=== PATIENT | male | born 1955 | race Caucasian/White ===

== ENCOUNTER 2019-03-22 15:45 | Outpatient (RCR) | payer BC, SELFPAY ==
[2019-03-17 09:21] VITALS: BP 143/87; PULSE 69; RESP 16; TEMP 35.7; BMI 96.0
--- NOTE | 2019-03-17 09:34 | WC ---
PT HAD RECENT DOPPLER AND VASCULAR STUDIES AT [facility] IN [place].
--- NOTE | 2019-03-17 10:55 | HP.PCM_ITS ---
(1) Peripheral vascular disease of lower extremity with ulceration Status: Acute Current Visit: Yes Code(s): I73.9 - Peripheral vascular disease, unspecified; L97.909 - Non-pressure chronic ulcer of unspecified part of unspecified lower leg with unspecified severity (2) Benign essential HTN Status: Chronic Current Visit: Yes Code(s): I10 - Essential (primary) hypertension (3) DM2 (diabetes mellitus, type 2) Status: Chronic Current Visit: Yes Qualifiers: Diabetes mellitus complication status: with circulatory complication Code(s): E11.9 - Type 2 diabetes mellitus without complications (4) Morbid obesity Status: Chronic Current Visit: Yes Code(s): E66.01 - Morbid (severe) obesity due to excess calories (5) Sleep apnea Status: Chronic Current Visit: Yes Code(s): G47.30 - Sleep apnea, unspecified (6) Superficial thrombosis of left lower extremity Status: Acute Current Visit: Yes Code(s): I82.812 - Embolism and thrombosis of superficial veins of left lower extremity History of Present Illness Date of Service: 03/17/19 Chief Complaint: Follow-up on a left medial ankle open ulcer History of Wound: 63-year-old obese diabetic white male with a history of peripheral vascular disease has stasis dermatitis of the left leg and swelling noticed about 3 weeks ago and opening on his left medial ankle. Was seen by his primary care doctor and sports medicine doctor and he ordered ultrasound of his left leg and studies of his left leg which show superficial thrombosis is in the popliteal and gastrocnemius area plus a lot of blocked connectors. Leg is definitely swollen patient has tried to wear stockings before but says they never work out very hesitant to use a compression stocking. Right leg is normal size with good shape no sign of any peripheral vascular disease. Patient's diabetes well controlled around 7 he takes metformin and Ozempic and Levemir for control. 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 The area itself looks cobblestone and typical peripheral vascular disease type ulcer, barely opened very painful had some dried slough over top of the skin. Past Medical History Past Medical History: Chronic Problems Sleep apnea (Chronic) Morbid obesity (Chronic) DM2 (diabetes mellitus, type 2) (Chronic) Benign essential HTN (Chronic) Past Medical History: Peripheral vascular disease with open ulcer. Thrombosis is and blocked veins in the left leg superficial Allergies/Adverse Reactions: Allergies ibuprofen [From Nuprin] Allergy (Verified 03/17/19 09:39) Unknown Home Medications: Ambulatory Orders Medication Instructions Recorded Ascorbic Acid [Vitamin C] 250 mg PO DAILY 03/17/19 Aspirin [Aspirin EC] 81 mg PO DAILY 03/17/19 Carvedilol [Coreg] 25 mg PO BID 03/17/19 Doxycycline 100 mg PO BID 03/17/19 Insulin Detemir [Levemir] 75 unit SQ DAILY 03/17/19 Metformin HCl 500 mg PO BID 03/17/19 Olme/Amlo/Hctz 1 tab PO DAILY 03/17/19 Semaglutide [Ozempic] 1 mg SQ QWEEK 03/17/19 hydrALAZINE [Apresoline] 50 mg PO BID 03/17/19 Lives: Spouse/ Significant Other Smoking Status: Former smoker Review of Systems Constitutional: Denies: Chills, Fever Eyes: Denies: Blurred vision, Drainage, Pain HEENT: Denies: Difficulty Hearing, Difficulty Swallowing, Sore Throat, Visual Changes Cardiovascular: Denies: Chest Pain, Palpitations, Syncope Respiratory: Denies: Cough, Shortness of Breath Gastrointestinal: Denies: Abdominal Pain, Nausea, Vomiting Genitourinary: Denies: Dysuria, Frequency Musculoskeletal: Denies: Joint Pain, Muscle pain Skin: Reports: -. Denies: Jaundice, Rash Neurological: Denies: Balance problems, Change in Speech, Difficulty swallowing, Focal weakness Psychiatric: Denies: Anxiety, Depression Endocrine: Denies: Change in Body Habitus Hematologic/ Lymphatic: Denies: Adenopathy - Physical Exam Vital Signs Temp Pulse Resp BP 96.2 F L 69 16 143/87 H 03/17/19 09:21 03/17/19 09:21 03/17/19 09:21 03/17/19 09:21 General: Oriented x3, Cooperative, Well developed HEENT: Atraumatic, PERRLA Oral: Moist Mucosa Neck: Supple, No JVD Lungs: Clear to auscultation, Normal air movement Cardiovascular: Regular rate, Regular Rhythm Abdomen: Bowel Sounds Present, Soft, Non Tender, No Hepato-splenomegaly Extremities: No clubbing, No edema Skin: Ulcer/ Wound - Left medial ankle Wound Measurements and Assessment WC - Nurse 1 - General Ulcer Measurement Start: 03/17/19 09:20 Freq: Status: Active Protocol: Activity Type Activity Date Activity User E-Sign Co-Sign Detail Recorded Client Recorded Date Recorded By Document 03/17/19 09:21 [facility] [id number] 03/17/19 09:34 [facility] 03/17/19 09:21 Wound Center Nurse 1 [Ulcer Assessment] #1- L MEDIAL ANKLE -Combined with other wound No -Current Size (cm) - Length 1.2 -Current Size (cm) - Width 1.3 -Current Size (cm) - Depth 0.1 -Total Square Cm 1.56 -Date of Last Picture (Recall this 03/17/19 field) -Photo Taken Yes -Epithelialization Large 67-100% -Tunneling No -Undermining/Tunneling No -Circular Undermining No -Exudate Amt None Present -Wound Margin Flat & Intact -Granulation Amt None Present (0 %) -Slough/Fibrin Yes -Necrosis Amt Large (67-100%) -Necrotic Tissue Type Adherent Slough -Texture (Mariza-wound Skin Appearance) Assessed, Scarring -Moisture (Mariza-wound Skin Appearance Assessed,Dry/ ) Scaly -Color (Mariza-wound Skin Appearance) Assessed, Hemosiderin Staining -Temperature (Mariza-wound Skin No Abnormality Appearance) (Pt Warm) -Tenderness on Palpation (Mariza-wound Yes Skin Appearance) -Ulcer Cleansing Rinsed/ Irrigated with Saline -Foul Odor after Cleansing No -Anesthetic Used 5% Lidocaine Gel [Edema Assessment] -Lower Limb Edema Present Yes -Right Calf (cm) 41.1 -Right Ankle (cm) 27.3 -Left Calf (cm) 45.6 -Left Ankle (cm) 30.8 - Nurse 2 - General Ulcer CM Notes Start: 03/17/19 09:20 Freq: Status: Active Protocol: Activity Type Activity Date Activity User E-Sign Co-Sign Detail Recorded Client Recorded Date Recorded By Document 03/17/19 10:29 MW [id number] 03/17/19 10:36 MW 03/17/19 10:29 Wound Center Nurse 2 [Procedure/Treatment] #1- L MEDIAL ANKLE -Time 10:29 -Correct Patient Yes -Correct Side, Site, Position Yes -Correct Procedure Yes -Procedure Performed Yes -Type of Procedure Debridement -Clinical Debridement Subcutaneous -Post Debridement Size (cm) - Length 1.7 -Post Debridement Size (cm) - Width 2.0 -Post Debridement Size (cm) - Depth 0.1 -Total Square Cm 3.40 -Wound/Ulcer Outcome Not Healed -Ulcer Cleansing Rinsed/ Irrigated with Saline -Foul Odor after Cleansing No -Bioengineered Tissue No -Bleeding Controlled with Pressure -Offloading No -Treatment Response Procedure Tolerated Well [See Physician Procedure note for Specifics] Pain Scale: 0-10 Numeric [Pain] -Is Patient Pain Free? Yes Musculoskeletal: No Tenderness to Palpation of Joints or Extremities Lymphatic: No Cervical, Supraclavicular, or Inguinal Adenopathy Neurological: Cranial nerves II-XII grossly intact, Neuro grossly intact Psych/Mental Status: Normal Affect, Appropriate Debridement Note Post-Debridement Measurements/Treatment WC - Nurse 2 - General Ulcer CM Notes Start: 03/17/19 09:20 Freq: Status: Active Protocol: Activity Type Activity Date Activity User E-Sign Co-Sign Detail Recorded Client Recorded Date Recorded By Document 03/17/19 10:29 MW [id number] 03/17/19 10:36 MW 03/17/19 10:29 Wound Center Nurse 2 #1- L MEDIAL ANKLE -Time 10:29 -Correct Patient Yes -Correct Side, Site, Position Yes -Correct Procedure Yes -Procedure Performed Yes -Type of Procedure Debridement -Clinical Debridement Subcutaneous -Post Debridement Size (cm) - Length 1.7 -Post Debridement Size (cm) - Width 2.0 -Post Debridement Size (cm) - Depth 0.1 -Total Square Cm 3.40 -Wound/Ulcer Outcome Not Healed -Ulcer Cleansing Rinsed/ Irrigated with Saline -Foul Odor after Cleansing No -Bioengineered Tissue No -Bleeding Controlled with Pressure -Offloading No -Treatment Response Procedure Tolerated Well Pain Scale: 0-10 Numeric Is Patient Pain Free? Yes Wound debrided: Left medial ankle ulcer Type of Debridement: Excisional debridement Anesthesia Used: 5% Lidocaine Gel Depth: Down to and including healthy tissue, in the subcutaneous layer Percentage of wound debrided: 100 Instrument Used: 7mm curette Tissue Removed: Slough Severity: Limited To Skin Breakdown Amount of bleeding with debridement: Mild Bleeding Controlled with: Compression and gauze Patient tolerated procedure well Assessment/Plan Active Problems Peripheral vascular disease of lower extremity with ulceration (Acute) Superficial thrombosis of left lower extremity (Acute) Sleep apnea (Chronic) Morbid obesity (Chronic) DM2 (diabetes mellitus, type 2) (Chronic) Benign essential HTN (Chronic) Assessment: Vascular disease with ulcer left medial ankle. Morbid obesity. Diabetes type 2 uncontrolled. Edema lower extremity left leg Plan: Wash left leg with antibacterial soap apply Aquacel silver to the wound area moistened cover with Adaptic gauze dressing and Subha applied Tubigrip single layer. Keep appointment with vascular surgery. Follow-up in 1 week with an afternoon DrMelida transfer out
[2019-03-22 15:20] VITALS: BP 154/89; PULSE 80; RESP 20; TEMP 35.7; BMI 96.0
--- NOTE | 2019-03-22 17:04 | PN.PCM_ITS ---
(1) Ulcer of left lower extremity with fat layer exposed Status: Resolved Current Visit: Yes Code(s): L97.922 - Non-pressure chronic ulcer of unspecified part of left lower leg with fat layer exposed (2) Localized edema Status: Chronic Current Visit: Yes Code(s): R60.0 - Localized edema (3) Venous insufficiency (chronic) (peripheral) Status: Chronic Current Visit: Yes Code(s): I87.2 - Venous insufficiency (chronic) (peripheral) Type of Wound Date of Service: 03/23/19 Chief Complaint: Follow-up on a left medial ankle open ulcer History of Wound: 63-year-old obese diabetic white male with a history of per ipheral vascular disease has stasis dermatitis of the left leg and swelling . Was seen by his primary care doctor and sports medicine doctor and he ordered ultrasound of his left leg and studies of his left leg which show superficial thrombosis is in the popliteal and gastrocnemius area plus a lot of blocked connectors. Leg is definitely swollen patient has tried to wear stockings before but says they never work out very hesitant to use a compression stocking. Right leg is normal size with good shape no sign of any peripheral vascular disease. Patient's diabetes well controlled around 7 he takes metformin and Ozempic and Levemir for control. 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 The area itself looks cobblestone and typical peripheral vascular disease type ulcer, barely opened very painful had some dried slough over top of the skin. He denies drainage and thinks the ulcer site is healed. Progress of Wound: Healed - Physical Exam Vital Signs Temp Pulse Resp BP 96.2 F L 80 20 H 154/89 H 03/22/19 15:20 03/22/19 15:20 03/22/19 15:20 03/22/19 15:20 General: Alert, Oriented x3, Cooperative, No apparent distress Extremities: No cyanosis, Capillary Refill Less than 3 Seconds, No Calf Tenderness - Negative Banda sign and compartments remain soft to palpate bilateral, Diminished Peripheral Pulses, Edema Skin: Ulcer/ Wound - Full epithelialization is noted and the ulcer site has healed. The adjacent skin remains atrophic. There is no bogginess or fluctuance on palpation. Wound Measurements and Assessment WC - Nurse 1 - General Ulcer Measurement Start: 03/17/19 09:20 Freq: Status: Active Protocol: Activity Type Activity Date Activity User E-Sign Co-Sign Detail Recorded Client Recorded Date Recorded By Document 03/22/19 15:[address] [facility] [id number] 03/22/19 15:[address] [facility] 03/22/19 15:20 Wound Center Nurse 1 [Ulcer Assessment] #1- L MEDIAL ANKLE -Combined with other wound No -Current Size (cm) - Length 0 -Current Size (cm) - Width 0 -Current Size (cm) - Depth 0 -Total Square Cm 0 -Date of Last Picture (Recall this 03/22/19 field) -Photo Taken Yes -Epithelialization Large 67-100% [Edema Assessment] -Lower Limb Edema Present Yes -Left Calf (cm) 46 -Left Ankle (cm) 30.2 - Nurse 2 - General Ulcer CM Notes Start: 03/17/19 09:20 Freq: Status: Active Protocol: Activity Type Activity Date Activity User E-Sign Co-Sign Detail Recorded Client Recorded Date Recorded By Document 03/22/19 16:30 [id number] 03/22/19 16:30 03/22/19 16:30 Wound Center Nurse 2 [Procedure/Treatment] #1- L MEDIAL ANKLE -Correct Patient No -Correct Side, Site, Position No -Correct Procedure No -Procedure Performed No -Post Debridement Size (cm) - Length 0 -Post Debridement Size (cm) - Width 0 -Post Debridement Size (cm) - Depth 0 -Total Square Cm 0 -Wound/Ulcer Outcome Healed- Epithelialized [See Physician Procedure note for Specifics] Pain Scale: 0-10 Numeric [Pain] -Is Patient Pain Free? Yes Musculoskeletal: No Tenderness to Palpation of Joints or Extremities, Muscle Wasting Psych/Mental Status: Normal Affect, Appropriate Debridement Note Post-Debridement Measurements/Treatment - Nurse 2 - General Ulcer CM Notes Start: 03/17/19 09:20 Freq: Status: Active Protocol: Activity Type Activity Date Activity User E-Sign Co-Sign Detail Recorded Client Recorded Date Recorded By Document 03/17/19 10:29 MW [id number] 03/17/19 10:36 MW Document 03/22/19 16:30 [id number] 03/22/19 16:30 03/17/19 03/22/19 10:29 16:30 Wound Center Nurse 2 #1- L MEDIAL ANKLE -Time 10:29 -Correct Patient Yes No -Correct Side, Site, Position Yes No -Correct Procedure Yes No -Procedure Performed Yes No -Type of Procedure Debridement -Clinical Debridement Subcutaneous -Post Debridement Size (cm) - Length 1.7 0 -Post Debridement Size (cm) - Width 2.0 0 -Post Debridement Size (cm) - Depth 0.1 0 -Total Square Cm 3.40 0 -Wound/Ulcer Outcome Not Healed Healed- Epithelialized -Ulcer Cleansing Rinsed/ Irrigated with Saline -Foul Odor after Cleansing No -Bioengineered Tissue No -Bleeding Controlled with Pressure -Offloading No -Treatment Response Procedure Tolerated Well Pain Scale: 0-10 Numeric Is Patient Pain Free? Yes Yes No debridement was completed today - healed Assessment/Plan Active Problems Peripheral vascular disease of lower extremity with ulceration (Acute) Superficial thrombosis of left lower extremity (Acute) Localized edema (Chronic) Venous insufficiency (chronic) (peripheral) (Chronic) Sleep apnea (Chronic) Morbid obesity (Chronic) DM2 (diabetes mellitus, type 2) (Chronic) Benign essential HTN (Chronic) Assessment: Vascular disease with ulcer left medial ankle - healed today. Morbid obesity. Diabetes type 2 uncontrolled. Edema lower extremity left leg Plan: I reviewed and discuss his case. It is noted the ulcer site has healed. I recommend monitors this closely for recurrence or signs of infection which neither is noted today. He understands the skin will take several months to remodel. To continue with light compression to control edema. To avoid idle standing or sitting. To elevate limbs while resting. To follow-up with vascular surgery as scheduled. He can discontinue dressing care and nutritional supplementation at this time. I answered his questions. He is discharged from the wound healing center at this time. To follow-up at the foot and ankle center as needed in the future for lower extremity needs.
== END 2019-04-10 23:59 ==
LOC: WC 15:45
PROVIDERS: Family Provider Family Medicine; PCP Family Medicine; Visit Provider Podiatrist
DX: E11.622 Type 2 diabetes mellitus with other skin ulcer (principal); E11.51 Type 2 diabetes mellitus with diabetic peripheral angiopathy without gangrene; G47.30 Sleep apnea, unspecified; E66.01 Morbid (severe) obesity due to excess calories; I10 Essential (primary) hypertension; Z87.891 Personal history of nicotine dependence; Z79.899 Other long term (current) drug therapy; Z79.4 Long term (current) use of insulin; Z79.82 Long term (current) use of aspirin; L97.321 Non-pressure chronic ulcer of left ankle limited to breakdown of skin; E11.65 Type 2 diabetes mellitus with hyperglycemia; R60.0 Localized edema
CPT/HCPCS: 11042; 99203; 99213; G0463

== ENCOUNTER 2023-10-28 13:12 | Observation (INO) | payer MEDICARE, SELFPAY ==
[2023-10-28] VITALS (12 sets, daily range): BP systolic 147–159; BP diastolic 70–78; PULSE 53–71; RESP 14–20; TEMP 36.5–37.1; O2SAT 96–100; BMI 47.7
--- NOTE | 2023-10-28 13:10 | EKG12_ITS ---
Test Reason : PREOP Blood Pressure : / mmHG Vent. Rate : 057 BPM Atrial Rate : 057 BPM P-R Int : 228 ms QRS Dur : 132 ms QT Int : 492 ms P-R-T Axes : 083 062 014 degrees QTc Int : 478 ms Sinus bradycardia with 1st degree A-V block Non-specific intra-ventricular conduction block Abnormal ECG When compared with ECG of 28-OCT-2023 13:14, MANUAL COMPARISON REQUIRED, DATA IS UNCONFIRMED Confirmed by JAISON KWAN, JOSEPH ([id number]), manager editorial STAS QUIÑONES ([id number]) on 11/09/2023 6:02:42 AM Referred By: Confirmed By:JOSEPH BLACKWOOD MD
--- NOTE | 2023-10-28 13:32 | EX.ED.DYSGE1 ---
HPI <CHANTE Perez - Last Filed: 10/28/23 17:08> History of Present Illness Chief Complaint: Lower Extremity Injury Narrative Narrative: 60-year-old male with past medical history of HTN, DM2, atrial flutter, CHF, DVT, CKD, PAWEL, AV replacement [facility] yesterday and cannot perform ADLs or dress his right lower extremity. He originally went to [facility] ED on 10/03/2023 after he fell at home and had a facial laceration and right lower extremity hematoma that became progressively worse with blistering of the skin. He is on Eliquis for atrial flutter. He was transferred to [facility] for evaluation of the right leg. He does not really know the details of what happened but he ended up in [facility] and is supposed to wear Celso wrap's on the lower extremity. He states he told the rehab nurse he was ready to go home yesterday so he was discharged but he can only take a couple steps with his walker. He can barely make it to the fridge where he keeps his insulin. He cannot dress his right leg on his own. His son lives at home but works full-time and cannot help with these tasks. He came in by EMS because he cannot care for himself at home. He states on the way here he was emotional about having to come back to the hospital and he had 3 jolts of chest pain that have not returned and he had no other associated symptoms. [facility] <CHANTE Perez - Last Filed: 10/28/23 17:08> [facility] Medical History (Updated 10/28/23 @ 16:[address] Sommer Xie MD) Atrial fibrillation/flutter Benign essential HTN Chronic acquired lymphedema Chronic anemia CKD (chronic kidney disease), stage II DM2 (diabetes mellitus, type 2) Former tobacco use History of DVT (deep vein thrombosis) Morbid obesity Sleep apnea Valvular heart disease Venous insufficiency (chronic) (peripheral) Home Medications Olme/Amlo/Hctz 1 tab PO DAILY 03/17/19 [History Last Taken Unknown] ascorbic acid (vitamin C) 250 mg tablet 250 mg PO DAILY 03/17/19 [History Last Taken Unknown] aspirin 81 mg tablet,delayed release 81 mg PO DAILY 03/17/19 [History Last Taken Unknown] carvedilol 25 mg tablet 25 mg PO BID 03/17/19 [History Last Taken Unknown] doxycycline monohydrate 100 mg capsule 100 mg PO BID 03/17/19 [History Last Taken Unknown] hydralazine 50 mg tablet 50 mg PO BID 03/17/19 [History Last Taken Unknown] insulin detemir U-100 100 unit/mL subcutaneous solution 75 unit SQ DAILY 03/17/19 [History Last Taken Unknown] metformin 500 mg tablet 500 mg PO BID 03/17/19 [History Last Taken Unknown] semaglutide 1 mg/dose (2 mg/1.5 mL) subcutaneous pen injector 1 mg SQ QWEEK 03/17/19 [History Last Taken Unknown] Allergy/AdvReac Type Severity Reaction Status Date / Time ibuprofen [From Nuprin] Allergy Unknown Verified 10/28/23 13:13 Surgical History (Updated 10/28/23 @ 16:[address] Sommer Xie MD) S/P AVR (aortic valve replacement) Social History (System 06/16/21 @ 14:40 by Tawnya Amos) Smoking Status: Former smoker ROS <CHANTE Perez - Last Filed: 10/28/23 17:08> ROS ED ROS Narrative Constitutional: Negative for fever, chills, malaise. CVS: Positive for chest pain. Respiratory: Negative for shortness of breath, cough. GI: Negative for abdominal pain, nausea, vomiting, diarrhea. EXAM <CHANTE Perez - Last Filed: 10/28/23 17:08> Physical Exam Narrative Exam Narrative: CONST: Morbidly obese patient sitting in no acute distress. EYES: Normal inspection. NECK: Normal inspection. RESP: No respiratory distress, CTAB. Limited by body habitus. CVS: Regular rate and rhythm, no murmur, no gallop. SKIN: Color normal, no rash, warm, dry, intact. EXTREMITIES: Bilateral lower extremity edema with compressive Celso wrap's on lower extremities. NEURO: Alert and answering questions appropriately. PSYCH: Normal affect. Const Vital Signs: 10/28/23 13:13 10/28/23 13:18 10/28/23 14:12 Temperature 98.8 F Temperature Source Temporal Pulse Rate 57 L 61 Respiratory Rate 20 H 16 Respiratory Effort Normal Blood Pressure 158/75 H 159/77 H Blood Pressure Mean 102 104 Pulse Ox 100 97 Oxygen Delivery Method Room Air Nasal Cannula Oxygen Flow Rate (L/min) 2 2 10/28/23 15:00 Temperature Temperature Source Pulse Rate 59 L Respiratory Rate 14 Respiratory Effort Blood Pressure 149/78 H Blood Pressure Mean 101 Pulse Ox 97 Oxygen Delivery Method Nasal Cannula Oxygen Flow Rate (L/min) 2 <Dr. Jasbir Martinez DO - Last Filed: 10/28/23 15:23> Physical Exam Const Vital Signs: 10/28/23 13:13 10/28/23 13:18 10/28/23 14:12 Temperature 98.8 F Temperature Source Temporal Pulse Rate 57 L 61 Respiratory Rate 20 H 16 Respiratory Effort Normal Blood Pressure 158/75 H 159/77 H Blood Pressure Mean 102 104 Pulse Ox 100 97 Oxygen Delivery Method Room Air Nasal Cannula Oxygen Flow Rate (L/min) 2 2 10/28/23 15:00 Temperature Temperature Source Pulse Rate 59 L Respiratory Rate 14 Respiratory Effort Blood Pressure 149/78 H Blood Pressure Mean 101 Pulse Ox 97 Oxygen Delivery Method Nasal Cannula Oxygen Flow Rate (L/min) 2 MDM <CHANTE Perez - Last Filed: 10/28/23 17:08> [facility] MDM Narrative Medical decision making narrative: Patient had a fall on 10/03/2023 injuring his face and right lower extremity with hematoma formation. He went home from [facility] yesterday and cannot ambulate and perform ADLs independently. He presents for placement. He is awake and alert and has no acute complaints. Vital signs are stable. Screening labs are at baseline. He has a normal white count at 5.6, hemoglobin is 8.7 (it was 7.8 on 10/20/2023 at [facility]). Renal function is normal. Troponin 21. EKG nonischemic. Patient does not have any acute medical problems but needs to go back to rehab due to inability to perform ADLs at home or ambulate well. Case will be discussed with social work. The social work supervisor states he requires PT/OT evaluation and precertification for placement so will need brought in for observation. Case was discussed with the hospitalist. I have personally performed a face to face assessment of the patient and have reviewed the TREY Note. I performed a substantive portion of the visit including all aspects of the following. My bird findings include: History is 68-year-old male discharged yesterday from rehab facility. Patient states he is unable to care for himself. Patient morbidly obese with diabetes and chronic venous insufficiency with recent admission to the hospital with anemia and DVT on anticoagulation. Patient was presented to EMS he was having some intermittent chest pain on the way to the hospital. His Dr. is at [facility] and he was admitted at [facility] and [facility]. It is unclear if on direct questioning is to apply he had a administering him to [facility]. Exam is morbidly obese male no acute distress. Bilateral lower extremity edema with chronic venous stasis changes. Medical Decison Making basic blood work will be obtained as well as cardiac evaluation. Patient will need to speak with the hospitalist to see if we can get him back into a rehab facility. Lab Data Attestation: I reviewed the patient's lab results. Labs: Laboratory Results - last 24 hr 10/28/23 13:20 WBC 5.6 RBC 3.30 L Hgb 8.7 L Hct 30.1 L MCV 91.2 MCH 26.4 L MCHC 28.9 L RDW Std Deviation 60.4 H RDW Coeff of Carlito 18.6 H Plt Count 276 MPV 10.6 Immature Gran % (Auto) 0.400 Neut % (Auto) 74.7 H Lymph % (Auto) 13.4 L [place] % (Auto) 9.3 Eos % (Auto) 1.8 Baso % (Auto) 0.4 Absolute Neuts (auto) 4.2 Absolute Lymphs (auto) 0.75 L Nucleated RBC % 0 Sodium 141 Potassium 4.7 Chloride 108 H Carbon Dioxide 34.0 H Anion Gap -1 L BUN 21 H Creatinine 1.19 Estim Creat Clear Calc 98.18 Est GFR (MDRD) Af Amer 78 Est GFR (MDRD) Non-Af 65 BUN/Creatinine Ratio 17.6 Glucose 139 H Calcium 8.8 Troponin I High Sens 21 Radiography Diagnostic Testing: Clinical Impression(s) from Imaging Studies Chest X-Ray 10/28/23 13:45 IMPRESSION: No acute abnormality is seen. Electronically Signed: Jesse Stewart MD at 14:09 EDT , <Dr. Jasbir Martinez, DO - Last Filed: 10/28/23 15:23> [facility] Narrative Medical decision making narrative: Patient had a fall on 10/03/2023 injuring his face and right lower extremity with hematoma formation. He went home from [facility] yesterday and cannot ambulate and perform ADLs independently. He presents for placement. He is awake and alert and has no acute complaints. Vital signs are stable. Screening labs are at baseline. He has a normal white count at 5.6, hemoglobin is 8.7 (it was 7.8 on 10/20/2023 at [facility]). Renal function is normal. Troponin 21. EKG nonischemic. Patient does not have any acute medical problems but needs to go back to rehab due to inability to perform ADLs at home or ambulate well. Case will be discussed with social work. I have personally performed a face to face assessment of the patient and have reviewed the TREY Note. I performed a substantive portion of the visit including all aspects of the following. My bird findings include: History is 68-year-old male discharged yesterday from rehab facility. Patient states he is unable to care for himself. Patient morbidly obese with diabetes and chronic venous insufficiency with recent admission to the hospital with anemia and DVT on anticoagulation. Patient was presented to EMS he was having some intermittent chest pain on the way to the hospital. His Dr. is at [facility] and he was admitted at [facility] and [facility]. It is unclear if on direct questioning is to apply he had a administering him to [facility]. Exam is morbidly obese male no acute distress. Bilateral lower extremity edema with chronic venous stasis changes. Medical Decison Making basic blood work will be obtained as well as cardiac evaluation. Patient will need to speak with the hospitalist to see if we can get him back into a rehab facility. History & Record Review Discussion w/independent historian: Patient Additional record(s) reviewed:: Prior outpatient record and Prior labs Lab Data Labs: Laboratory Results - last 24 hr 10/28/23 13:20 WBC 5.6 RBC 3.30 L Hgb 8.7 L Hct 30.1 L MCV 91.2 MCH 26.4 L MCHC 28.9 L RDW Std Deviation 60.4 H RDW Coeff of Carlito 18.6 H Plt Count 276 MPV 10.6 Immature Gran % (Auto) 0.400 Neut % (Auto) 74.7 H Lymph % (Auto) 13.4 L [place] % (Auto) 9.3 Eos % (Auto) 1.8 Baso % (Auto) 0.4 Absolute Neuts (auto) 4.2 Absolute Lymphs (auto) 0.75 L Nucleated RBC % 0 Sodium 141 Potassium 4.7 Chloride 108 H Carbon Dioxide 34.0 H Anion Gap -1 L BUN 21 H Creatinine 1.19 Estim Creat Clear Calc 98.18 Est GFR (MDRD) Af Amer 78 Est GFR (MDRD) Non-Af 65 BUN/Creatinine Ratio 17.6 Glucose 139 H Calcium 8.8 Troponin I High Sens 21 Radiography Diagnostic Testing: Clinical Impression(s) from Imaging Studies Chest X-Ray 10/28/23 13:45 IMPRESSION: No acute abnormality is seen. Electronically Signed: Jesse Stewart MD at 14:09 EDT , EKG Initial EKG: Attestation: I personally reviewed and interpreted this EKG as follows: Comments: Sinus rhythm first-degree AV block ventricular rate of 70 bpm Discharge Plan Triage Chief Complaint: Lower Extremity Injury ED Midlevel Provider: Zandra Rincon ED Provider: Jasbir Martinez Dx/Rx/DC Orders Clinical Impression: Impaired mobility and ADLs, Chronic anemia Prescriptions: No Action metformin 500 MG tablet 500 mg PO BID carvedilol 25 MG tablet 25 mg PO BID aspirin 81 MG tablet,delayed release (DR/EC) 81 mg PO DAILY ascorbic acid (vitamin C) 250 MG tablet 250 mg PO DAILY doxycycline monohydrate 100 MG capsule 100 mg PO BID hydralazine 50 MG tablet 50 mg PO BID insulin detemir U-100 100 UNIT/ML solution 75 unit SQ DAILY semaglutide 1 MG/0.75 ML pen injector 1 mg SQ QWEEK Olme/Amlo/Hctz 1 tab PO DAILY Primary Care Provider: Hiren Benites NP Referrals: Baltes,Hiren PURCHASING AND CLAIMS SUPERVISOR, PURCHASING AND CLAIMS SUPERVISOR-C [Primary Care Provider] -
[2023-10-28 13:41] LABS: Absolute Lymphocyte Count 0.75 X10^3/uL (0.83-4.51); Absolute Neutrophil Count 4.2 X10^3/uL (2.0-7.7); Basophil# 0.02 X10^3/uL; Basophil% 0.4 % (0-1); Eosinophils% 1.8 % (0-5); Hematocrit 30.1 % (40-54); Hemoglobin 8.7 g/dL (13.0-16.5); Lymphocyte # 0.75 X10^3/ul (0.83-4.51); Lymphocyte % 13.4 % (19-41); Mean Corp Hgb Conc 28.9 g/dL (32-36); Mean Corpuscular Hgb 26.4 pg (27.0-32.0); Mean Corpuscular Volume 91.2 fL (80-94); Mean Platelet Vol. 10.6 fl (6.2-12.0); Monocyte# 0.52 X10^3/uL; Monocyte% 9.3 % (0-10); NRBC Flagged by Analyzer 0 % (0-5); Neutrophil % 74.7 % (47-70); Platelet Count 276 K/mm3 (150-450); RBC Distribution Width CV 18.6 % (11.6-14.6); RBC Distribution Width SD 60.4 fl (35.1-43.9); White Blood Count 5.6 K/mm3 (4.4-11.0)
--- NOTE | 2023-10-28 13:45 | RAD_ITS ---
STUDY: X-RAY CHEST REASON FOR EXAM: Male, 68 years old. Dyspnea TECHNIQUE: Single AP portable view of the chest. COMPARISON: Comparison is made with prior study dated November 29, 2010. FINDINGS: EKG electrodes are seen. The lungs are clear and expanded. Elevation of the right hemidiaphragm. There is no demonstrated pleural abnormality. Sternal cerclage wires and vascular clips are present from a prior sternotomy and coronary artery bypass graft procedure (CABG). Normal mediastinum and stacey. Normal visualized pulmonary arteries. There is atherosclerotic calcification of the aortic arch with tortuosity. Normal visualized thoracic spine. Normal visualized ribs, clavicles, and shoulders. There is no demonstrated abnormality of the visualized soft tissue structures of the upper abdomen. RAD/Chest 1 View (Portable) IMPRESSION: No acute abnormality is seen. Electronically Signed: Jesse Stewart MD at 14:09 EDT ,
[2023-10-28 14:09] LABS: Anion Gap -1 (5-15); BUN 21 mg/dL (7-18); BUN/Creat Ratio 17.6 RATIO (10-20); Calcium,Total 8.8 mg/dL (8.5-10.1); Chloride 108 mmol/L (98-107); Creatinine, Serum 1.19 mg/dL (0.70-1.30); EST Glomerular Filtration Rate 65 mL/min (>60); Est Glom Filt Rate - Afr Amer 78 mL/min (>60); Estimated Creatinine Clearance 98.18 ml/min; Glucose 139 mg/dL (74-106); Potassium 4.7 mmol/L (3.5-5.1); Sodium Level 141 mmol/L (136-145); Troponin-I HS 21 pg/mL (3.0-78.0)
[2023-10-28] MEDS: Oxycodone/Apap 5/325 Tablet PO (15:48)
--- NOTE | 2023-10-28 16:54 | HP.PCM.HOS_ITS ---
HPI - General General Date of Admission: 10/28/23 Date of Service: 10/28/23 Chief Complaint: Fatigue, malaise, adult FTT, unable to safely care for self at home. HPI Narrative The patient is a 68 y/o M w/ PMHx: Former tobacco use, Hx VTE, HF unclear type, Valvular Heart Disease s/p AV replacement, PAF/Flutter, Morbid Obesity, Chronic anemia, CKD stage II based on current GFR trending, HTN, HLD, Diabetes mellitus type II, BL LE Chronic lymphedema/PVD, PAWEL who presents to the [facility] ED on 10/28/23 with history of leaving earlier than recommended from [facility] rehab facility the day prior with plan transition to home PT and OT with history of 10/03/2019 for evaluation in the ED with mechanical fall with facial laceration and right lower extremity hematoma transferred to [facility] for evaluation of the right lower extremity with unclear exact intervention but strong recommendation for Celso wrap's and eventual transition to rehab given inability to take care of himself but unfortunately upon his return to home he realized he was unable to care for himself prompting transition to the ED for transition back to rehab. He notes that his legs are so swollen that he is having a lot of difficulty walking. Workup in the ED included T98.8, heart rate 57, BP 150/75, respiratory rate 20, 97% on 2 L nasal cannula, CBC with WBC 5.6, hemoglobin 8.7, MCV 91.2, platelet 276 with lymphopenia, BMP with chloride 108, carbon oxide 34, BUN/creatinine 21/1.19, GFR 65, glucose 139, troponin 21, chest x-ray with no acute cardiopulmonary findings. [facility] Medical History Atrial fibrillation/flutter Benign essential HTN Chronic acquired lymphedema Chronic anemia CKD (chronic kidney disease), stage II DM2 (diabetes mellitus, type 2) Former tobacco use History of DVT (deep vein thrombosis) Morbid obesity Sleep apnea Valvular heart disease Venous insufficiency (chronic) (peripheral) Home Medications Olme/Amlo/Hctz 1 tab PO DAILY 03/17/19 [History Last Taken Unknown] ascorbic acid (vitamin C) 250 mg tablet 250 mg PO DAILY 03/17/19 [History Last Taken Unknown] aspirin 81 mg tablet,delayed release 81 mg PO DAILY 03/17/19 [History Last Taken Unknown] carvedilol 25 mg tablet 25 mg PO BID 03/17/19 [History Last Taken Unknown] doxycycline monohydrate 100 mg capsule 100 mg PO BID 03/17/19 [History Last Taken Unknown] hydralazine 50 mg tablet 50 mg PO BID 03/17/19 [History Last Taken Unknown] insulin detemir U-100 100 unit/mL subcutaneous solution 75 unit SQ DAILY 03/17/19 [History Last Taken Unknown] metformin 500 mg tablet 500 mg PO BID 03/17/19 [History Last Taken Unknown] semaglutide 1 mg/dose (2 mg/1.5 mL) subcutaneous pen injector 1 mg SQ QWEEK 03/17/19 [History Last Taken Unknown] Allergy/AdvReac Type Severity Reaction Status Date / Time ibuprofen [From Nuprin] Allergy Unknown Verified 10/28/23 13:13 Family History (Updated 10/28/23 @ 17:[address] Sommer Xie MD) Mother No problems noted. Father Cirrhosis of liver Alcoholism Surgical History (Updated 10/28/23 @ 17:[address] Sommer Xie MD) History of bladder surgery History of right inguinal hernia repair History of tonsillectomy and adenoidectomy S/P AVR (aortic valve replacement) Social History (Updated 10/28/23 @ 17:[address] Sommer Xie MD) household members: children Smoking Status: Former smoker how long ago did patient quit smoking: Quit ~ 20 yrs prior, smoked age 15 until quit ~ 2 ppd. alcohol intake: never substance use type: does not use ROS ROS Narrative Admission Review of Systems: CONSTITUTIONAL: No weight loss, fever, chills, + weakness or fatigue. HEENT: Eyes: No visual loss, blurred vision, double vision or yellow sclerae. Ears, Nose, Throat: No hearing loss, sneezing, congestion, runny nose or sore throat. SKIN: No rash or itching, lesions, wounds except for significant bilateral lower extremity venous stasis skin disease, stasis blisters, status post recent fall right lower extremity with hematoma resolving, staged ecchymoses. CARDIOVASCULAR: No chest pain, chest pressure or chest discomfort, palpitations, edema, orthopnea, syncopal events. RESPIRATORY: No shortness of breath, cough or sputum, wheezing, hemoptysis. GASTROINTESTINAL: No anorexia, nausea, vomiting or diarrhea, abdominal pain, melena, BRBPR. GENITOURINARY: No dysuria, frequency, urgency or retention. NEUROLOGICAL: No headache, dizziness, syncope, paralysis, ataxia, numbness or tingling in the extremities, focal weakness, change in bowel or bladder control, seizure. MUSCULOSKELETAL: + muscle, back pain, joint pain or stiffness. HEMATOLOGIC: + Chronic anemia, easy bleeding/bruising. LYMPHATICS: No enlarged nodes. No history of splenectomy. PSYCHIATRIC: No history of depression or anxiety. ENDOCRINOLOGIC: No reports of sweating, cold or heat intolerance. No polyuria or polydipsia. ALLERGIES: + History of allergic rhinitis. Vital Signs Vital Signs Vital Signs: 10/28/23 13:13 10/28/23 13:18 10/28/23 14:12 Temperature 98.8 F Temperature Source Temporal Pulse Rate 57 L 61 Respiratory Rate 20 H 16 Respiratory Effort Normal Blood Pressure 158/75 H 159/77 H Blood Pressure Mean 102 104 Pulse Ox 100 97 Oxygen Delivery Method Room Air Nasal Cannula Oxygen Flow Rate (L/min) 2 2 10/28/23 15:00 Temperature Temperature Source Pulse Rate 59 L Respiratory Rate 14 Respiratory Effort Blood Pressure 149/78 H Blood Pressure Mean 101 Pulse Ox 97 Oxygen Delivery Method Nasal Cannula Oxygen Flow Rate (L/min) 2 Weight Weight: 372 lb 2.244 oz Body Mass Index (BMI) 47.7 Physical Exam Narrative Physical Examination: General: Awake, alert, oriented x 3 and cooperative, seated upright in the ED bed, fatigued appearing but otherwise no acute distress, very slow methodical speech. Skin: Normal color, normal turgor, no icterus, no cyanosis except for various staged ecchymoses including to the right periorbital region from recent fall, bilateral lower extremity significant venous stasis disease, right lower extremity status post fall with hematoma, resolving. HEENT: AT/NC, EOMI, PERRLA, mildly dry MM, no carotid bruits, no obvious JVD but thickened neck makes evaluation difficult. Lungs: Diminished, greater bases, appropriate effort, no rales, ronchi or wheezing. Heart: Regular rate and rhythm; no gallop, rub audible. Abdomen: Soft, morbidly obese, NTTP, distant normal BS, no appreciated distention or HSM but difficult given habitus. Extremities: No cyanosis, no clubbing, significant bilateral lower extremity pedal to distal just to knee 3+ pitting edema, see skin. Neurological: Patient awake, alert, oriented as noted, cognitive function intact; pupils equally reactive to light and accommodation, cranial nerves grossly normal, moving all 4 extremities but difficult and limited given significant edema he notes, no focal deficits, strength severely globally decrea sed. Psychiatric: Affect appears fatigued, mildly flat, no acute evidence of depressive or anxiety feelings. Results Lab / Micro Data 10/28/23 13:20 10/28/23 13:20 Labs: Laboratory Results - last 24 hr 10/28/23 13:20: WBC 5.6, RBC 3.30 L, Hgb 8.7 L, Hct 30.1 L, MCV 91.2, MCH 26.4 L , MCHC 28.9 L, RDW Std Deviation 60.4 H, RDW Coeff of Carlito 18.6 H, Plt Count 276, MPV 10.6, Immature Gran % (Auto) 0.400, Neut % (Auto) 74.7 H, Lymph % (Auto) 13.4 L, Billings % (Auto) 9.3, Eos % (Auto) 1.8, Baso % (Auto) 0.4, Absolute Neuts ( auto) 4.2, Absolute Lymphs (auto) 0.75 L, Nucleated RBC % 0, Sodium 141, Pota ssium 4.7, Chloride 108 H, Carbon Dioxide 34.0 H, Anion Gap -1 L, BUN 21 H, Creatinine 1.19, Estim Creat Clear Calc 98.18, Est GFR (MDRD) Af Amer 78, Est GFR (MDRD) Non-Af 65, BUN/Creatinine Ratio 17.6, Glucose 139 H, Calcium 8.8, Troponin I High Sens 21 Imaging Radiology Impression Chest X-Ray 10/28/23 13:45 IMPRESSION: No acute abnormality is seen. Electronically Signed: Jesse Stewart MD at 14:09 EDT , Assessment & Plan Assessment/Plan (1) Impaired mobility and ADLs: PLAN: Plan The patient is a 68 y/o M w/ PMHx: Former tobacco use, Hx VTE, HF unclear type, Valvular Heart Disease s/p AV replacement, PAF/Flutter, Morbid Obesity, Chronic anemia, CKD stage II based on current GFR trending, HTN, HLD, Diabetes mellitus type II, BL LE Chronic lymphedema/PVD, PAWEL who presents to the [facility] ED on 10/28/23 with history of leaving earlier than recommended from [facility] rehab facility the day prior with plan transition to home PT and OT with history of 10/03/2019 for evaluation in the ED with mechanical fall with facial laceration and right lower extremity hematoma transferred to [facility] for evaluation of the right lower extremity with unclear exact intervention but strong recommendation for Celso wrap's and eventual transition to rehab given inability to take care of himself but unfortunately upon his return to home he realized he was unable to care for himself prompting transition to the ED for transition back to rehab. #1. Weakness, debility, adult failure to thrive, multifactorial, secondary to #2 and compounded by underlying disease history as noted below: Will admit to medical surgical floor, maintain on fall precautions, place neck Celso wraps with elevation and will pulse dose IV Lasix given lower extremity edema is contributing to patient reportedly being unable to walk well and possibly fall history, will trend CBC, CMP to assure stability, PT/OT/case management consulted for transition back to rehab versus skilled. #2. Recent Hx Mechanical Fall w/ Head Laceration, RLE Hematoma: As noted had been seen initially 10/03/2023 at [facility] ED with transition to [facility] with no surgical intervention, conservative approach, eventually restarted eliquis, will continue Celso wraps to bilateral lower extremity given edema with pulse dose IV Lasix as noted above as may help with walking ability and continue to compress. PT/OT/case management consulted for discharge planning. #3. Normocytic anemia, chronic: Admission CBC with hemoglobin 8.7, MCV 91.2, prior noted to be 7.8 at [place] on 10/20/23, will continue to trend. #4. Chronic Kidney Disease Stage II per current GFR trending: Admission BUN/Cr 21/1.19, GFR 65, baseline renal function 4/15/24 Cr 1.27 with GFR 68, stable, repeat BMP in AM. #5. Diabetes mellitus type II: Hold oral home regimen, continue home insulin regimen, ADA diet, accu checks w/ ISS. #6. PAF/flutter: Will continue Eliquis, Coreg home regimen but clarifying home regimen. #7. Valvular heart disease: Status post previous AVR, bioprosthetic, possibly porcine, no echocardiogram noted in the system. #8. Hypertension: Continue home regimen including hydralazine, Coreg but currently clarifying home regimen PRN hydralazine. #9. Hyperlipidemia: Per current list on statin therapy, clarifying home regimen. #10. Morbid Obesity: Weight loss and lifestyle changes encouraged. #11. Bilateral lower extremity chronic lymphedema/PVD: Will continue eliquis, hypertensive regimen as noted but clarifying regimen as it is yet to be updated, clarifying if he is on a statin, will place snug Celso wraps with bilateral lower extremity elevation and will pulse dose with IV Lasix x 3 doses to assist. Will continue to closely monitor renal function also in the interim. #12. Hx VTE: [place] 10/22/23 RLE with chronic DVT evidence R proximal femoral vein and R popliteal vein, will continue eliquis. #13. Former tobacco use: Encourage continued tobacco cessation. #14. PAWEL: CPAP nightly encouraged. #15. DVT Prophylaxis: Continue eliquis home regimen. #16. CODE status: Patient JOVANY is his son and living will is currently in place. Discussed CODE status at length including difference between FULL code, DNR-CCA and DNR-CC status. Following discussions about the differences in these status, requested DNR-CCA, no intubation status. Advanced Care Planning Face to Face Time: 16 minutes. Charges/Coding Visit Charges Inpatient E&M: 16088 Init Hosp L2 Procedures Hospitalists Procedures: 16770 Advncd Care Plan 30 Min
--- NOTE | 2023-10-28 17:00 | CM.ED ---
Social Work Consult: Discharge planning, possible need for SNF Spoke with ED provider CHANTE Perez who updated on patient's status. Patient was discharged from [facility] on 10.27.23, at the patient's request, and since being home things have not gone as well for the patient as expected. Spoke with RN Julita who reports patient was an assist of 2 getting out of bed and needed assist with personal care. Updated provider that due to patient's insurance, will need PT/OT evaluations and insurance authorization before could admit patient to SNF level of care. Met with patient in room, introducing to self and social work role. Patient agreeable to speak with this typewriter mechanic. Presenting situation: Patient reports was released form [facility] on 10.27.23, that this was patient's decision, and one that the unit staff told patient was going to be tough for patient to manage at home. Patient reports to feel he does okay walking, but cannot transfer well on own and is at home alone most of the time. Patient reports to have lower extremity dressings, and cannot care for this on own either. Patient reports to be tired, and belief that should have stayed longer in the SNF. Patient reports the [facility] nurse was out to the home today, and helped initiate patient coming to the hospital to be evaluated. Living Situation: Son Hu lives with jalen in a one story home, 3 steps to enter with hand rails. Next of Kin: Son Hu Alvarez, whom the patient legally adopted when Hu was 8 years old. Patient is , no biological children of own. Support system: Patient's son is a support, but does work long hours. A friend Braxton arrived to the ED and reports has been friends with patient over 50 years. Patient confirms it is okay to update Braxton on things, and desire to have Braxton as an emergency contact. Transportation: Patient reports doesn't drive, but did not get to explore who provides assist to patient on this matter. DME: Patient reports to have a glucometer, CPAP (believes from [facility]), O2 concentrator to be used to bleed into CPAP/use for sleep; rollator walker, forward wheeled walker, raised toilet with handles, but reports handles are broken. SNF: History of [facility] (patient's with history of [facility]) [facility]: [place] PCP: Edward Nolan Stressors/Emotional Health issues: Patient reports a little over a year ago while living at [facility], so is scared of community based nursing facilities. Reports to miss and grieve his , who patient was for 45 years. Reports this woman was 13 years older than the patient and 80 years old at time of . Patient shared many experiences over the years where patient almost and was saved by medical interventions (heart issues, respiratory failure, gangrene after a ruptured colon). Patient reports to feel tired and mentioned this feeling several times during social work visit. Patient's affect flattened during conversation. Explored whether patient has had any thoughts of suicide, to which patient denies. Denies any history of attempts, self-harm, planning or intent. Immediately reported to this typewriter mechanic that patient's oldest brother, by suicide, so this is not something patient would think of for self. Emotional support and supportive listening provided to patient this date. Patient's goal: Return to SNF level of care, and voices desire to return to [facility]. Plan: Handoff to Care Management team on acute floors. Referral to be made to [facility], pending PT/OT evaluations Patient has been given SNF list, generated from [facility] including patient's geographical region, insurance network, quality data and star ratings. Patient is to determine at least 2 more choices in case [facility] is unable to accept patient back. -PALOMO Bonilla
--- NOTE | 2023-10-28 19:16 | CASEMGMT ---
Social Work Patient seen by Social work while in the ED. Refer to CM - ED note for further details of intervention. Plan: SW to follow for PT/OT evaluations. Anticipate SNF level of care based presentation in the ED. First Choice SNF: [facility] Second/Third choices: patient has been given SNF list generated from [facility] including geographical region, insurance network, Medicare quality and star data, so as to determine next level choices. -PALOMO Bonilla
--- NOTE | 2023-10-28 21:09 | CPS ---
Patient declined Pulmicort this evening. Patient stated he already took his steroid today but will start Pulmicort here in the morning.
[2023-10-28] MEDS: 0.9% Saline Lock 10 ML Syringe IV (21:21)
[2023-10-28] MEDS: Menthol/Lanolin/Calamine/Znox 113 GM Tube 1 APPLIC TOPICAL (21:21)
[2023-10-28] MEDS: Furosemide 40 MG/4 ML Vial IV (21:21)
[2023-10-28] MEDS: Carvedilol 25 MG Tablet PO (21:22)
[2023-10-28] MEDS: Metoprolol Tartrate 25 MG Tablet 12.5 MG PO (21:22)
[2023-10-28] MEDS: Gabapentin 300 MG Capsule PO (21:22)
[2023-10-28] MEDS: Nystatin Powder 15gm Bottle 1 APPLIC TOPICAL (21:24)
[2023-10-28] MEDS: MELATONIN 3 MG TABLET PO (21:27)
[2023-10-28 21:52] LABS: Bedside Glucose 103 mg/dL (74-106)
[2023-10-29] VITALS (10 sets, daily range): BP systolic 122–142; BP diastolic 62–72; PULSE 45–68; RESP 16–18; TEMP 36.4–36.7; O2SAT 94–100; BMI 47.7
[2023-10-29] MEDS: Gabapentin 300 MG Capsule PO ×3 (06:03→21:19)
[2023-10-29] MEDS: Nystatin Powder 15gm Bottle 1 APPLIC TOPICAL ×3 (06:03→21:19)
[2023-10-29 06:25] LABS: Bedside Glucose 112 mg/dL (74-106)
[2023-10-29] MEDS: Budesonide Respules 0.5 MG/2 ML AMPUL.NEB. INHALATION ×2 (07:32→20:04)
[2023-10-29 07:50] LABS: Absolute Lymphocyte Count 0.96 X10^3/uL (0.83-4.51); Basophil# 0.02 X10^3/uL; Basophil% 0.3 % (0-1); Eosinophil# 0.19 X10^3/uL; Eosinophils% 3.3 % (0-5); Hematocrit 29.5 % (40-54); Hemoglobin 8.4 g/dL (13.0-16.5); Lymphocyte # 0.96 X10^3/ul (0.83-4.51); Lymphocyte % 16.6 % (19-41); Mean Corp Hgb Conc 28.5 g/dL (32-36); Mean Corpuscular Volume 91.3 fL (80-94); Mean Platelet Vol. 10.7 fl (6.2-12.0); Monocyte# 0.62 X10^3/uL; Monocyte% 10.7 % (0-10); NRBC Flagged by Analyzer 0 % (0-5); Neutrophil # 3.95 X10^3/uL (2.7-7.7); Neutrophil % 68.6 % (47-70); Platelet Count 263 K/mm3 (150-450); RBC Distribution Width CV 18.6 % (11.6-14.6); RBC Distribution Width SD 60.5 fl (35.1-43.9); Red Blood Count 3.23 M/mm3 (4.6-6.2); White Blood Count 5.8 K/mm3 (4.4-11.0)
[2023-10-29 08:07] LABS: ALB/GLOB Ratio 0.7 RATIO (0.9-2.4); AST(SGOT) 23 U/L (15-37); Alanine Aminotransfer ALT/SGPT 24 U/L (16-61); Albumin, Serum 2.5 g/dL (3.2-5.0); Alkaline Phosphatase 74 U/L (45-117); Anion Gap 6 (5-15); BUN 20 mg/dL (7-18); BUN/Creat Ratio 16.5 RATIO (10-20); Calcium,Total 8.7 mg/dL (8.5-10.1); Chloride 107 mmol/L (98-107); Creatinine, Serum 1.21 mg/dL (0.70-1.30); EST Glomerular Filtration Rate 63 mL/min (>60); Est Glom Filt Rate - Afr Amer 77 mL/min (>60); Estimated Creatinine Clearance 96.56 ml/min; Globulin 3.8 g/dL (2.2-4.2); Glucose 113 mg/dL (74-106); Potassium 4.1 mmol/L (3.5-5.1); Protein, Total 6.3 g/dL (6.4-8.2); Sodium Level 143 mmol/L (136-145)
[2023-10-29 09:54] LABS: Vitamin B12 340 pg/mL (211-911)
--- NOTE | 2023-10-29 10:20 | CASEMGMT ---
Addendum entered by Nathaly Melo 10/29/23 15:54: Cln has called son four times throughout the day. Cln receives a message that voicemail is not set up. Cln verified phone number with pt. Pt continues to decline to make a choice on facilities without SW having spoken to son. LEATHA Alonso Original Note: Social Work- Cln met with pt to follow up on provider list. Pt states that he discussed options with his on and decided that he would like to stay at [facility]. PT had already provided therapy and notes completed. Referral made. Plan: TCU; pending acceptance
[2023-10-29 10:35] LABS: Ferritin 139 ng/mL (26-388); Iron 33 ug/dL (65-175); Iron Binding Capacity,Total 234 ug/dL (250-450); PERCENT IRON SATURATION 14.1 % (15.0-55.0)
[2023-10-29] MEDS: Ferrous Sulfate 325 MG Tablet PO (11:03)
[2023-10-29] MEDS: Carvedilol 25 MG Tablet PO ×2 (11:03→21:20)
[2023-10-29] MEDS: Menthol/Lanolin/Calamine/Znox 113 GM Tube 1 APPLIC TOPICAL ×4 (11:03→21:19)
[2023-10-29] MEDS: APIXABAN 5 MG TABLET PO ×2 (11:04→21:20)
[2023-10-29] MEDS: amLODIPine 5 MG Tablet PO (11:05)
[2023-10-29] MEDS: Atorvastatin Calcium 20 MG Tablet PO (11:05)
[2023-10-29] MEDS: Ascorbic Acid 500 MG Tablet 250 MG PO (11:08)
[2023-10-29] MEDS: Aspirin E.C. 81 MG Tablet PO (11:09)
[2023-10-29] MEDS: Insulin Glargine-YFGN 100 UNIT/ML Pen 60 UNIT SC (11:10)
[2023-10-29] MEDS: 0.9% Saline Lock 10 ML Syringe IV (11:12)
[2023-10-29] MEDS: Furosemide 40 MG/4 ML Vial IV ×2 (11:12→17:04)
[2023-10-29] MEDS: Ensure Plus High Protein 120 ML LIQUID PO (11:13)
[2023-10-29 11:38] LABS: Bedside Glucose 141 mg/dL (74-106)
--- NOTE | 2023-10-29 11:45 | PCM.PN.HOSP ---
Reason for Visit Reason for Visit: Diagnoses Other reduced mobility (10/28/23) Other specified health status (10/28/23) Subjective Subjective No acute events overnight. Patient seen at bedside this morning. Sitting up comfortably in bedside chair, conversing normally, in no acute distress. Stated PT and OT had gotten from the bed to the bedside chair this morning without significant issue. He does have both lower legs wrapped with Celso wrap and states that they remain fairly sore, painful and swollen, similar to previous days. He was eating his breakfast when I saw him, tolerating diet well. Had no other acute concerns Objective Data Objective Data Vital Signs: Vital Signs Temp Pulse Resp BP Pulse Ox O2 Del Method O2 Flow Rate 97.6 F L 59 L 18 140/72 H 96 Room Air 2 10/29/23 11:00 10/29/23 11:00 10/29/23 11:00 10/29/23 11:00 10/29/23 11:00 10/29/23 11:00 10/28/23 15:00 Oxygen Flow Rate (L/min) 2 Oxygen Delivery Method Room Air Weight: 168.8 kg Body Mass Index (BMI) 47.7 Intake & Output: Intake and Output for Last 24 Hours 10/27/23 10/28/23 10/29/23 23:59 23:59 23:59 Intake Total 300 / 300 200 / 200 Output Total 1600 / 1600 Balance 300 / 300 -1400 / -1400 Lab / Micro Data 10/29/23 07:18 10/29/23 07:18 Labs: Laboratory Results - last 24 hr 10/28/23 13:20: WBC 5.6, RBC 3.30 L, Hgb 8.7 L, Hct 30.1 L, MCV 91.2, MCH 26.4 L, MCHC 28.9 L, RDW Std Deviation 60.4 H, RDW Coeff of Carlito 18.6 H, Plt Count 276, MPV 10.6, Immature Gran % (Auto) 0.400, Neut % (Auto) 74.7 H, Lymph % (Auto) 13.4 L, Screven % (Auto) 9.3, Eos % (Auto) 1.8, Baso % (Auto) 0.4, Absolute Neuts (auto) 4.2, Absolute Lymphs (auto) 0.75 L, Nucleated RBC % 0, Sodium 141, Potassium 4.7, Chloride 108 H, Carbon Dioxide 34.0 H, Anion Gap -1 L, BUN 21 H, Creatinine 1.19, Estim Creat Clear Calc 98.18, Est GFR (MDRD) Af Amer 78, Est GFR (MDRD) Non-Af 65, BUN/Creatinine Ratio 17.6, Glucose 139 H, Calcium 8.8, Troponin I High Sens 21 10/28/23 21:34: POC Glucose 103 10/29/23 06:03: POC Glucose 112 H 10/29/23 07:18: WBC 5.8, RBC 3.23 L, Hgb 8.4 L, Hct 29.5 L, MCV 91.3, MCH 26.0 L, MCHC 28.5 L, RDW Std Deviation 60.5 H, RDW Coeff of Carlito 18.6 H, Plt Count 263, MPV 10.7, Immature Gran % (Auto) 0.500, Neut % (Auto) 68.6, Lymph % (Auto) 16.6 L, Screven % (Auto) 10.7 H, Eos % (Auto) 3.3, Baso % (Auto) 0.3, Absolute Neuts (auto) 4.0, Absolute Lymphs (auto) 0.96, Nucleated RBC % 0, Sodium 143, Potassium 4.1, Chloride 107, Carbon Dioxide 30.0, Anion Gap 6, BUN 20 H, Creatinine 1.21, Estim Creat Clear Calc 96.56, Est GFR (MDRD) Af Amer 77, Est GFR (MDRD) Non-Af 63, BUN/Creatinine Ratio 16.5, Glucose 113 H, Calcium 8.7, Iron 33 L, TIBC 234 L, Iron Saturation 14.1 L, Ferritin 139, Total Bilirubin 0.70, AST 23, ALT 24, Alkaline Phosphatase 74, Total Protein 6.3 L, Albumin 2.5 L, Globulin 3.8, Albumin/Globulin Ratio 0.7 L, Vitamin B12 340, Folate 18.00 10/29/23 11:11: POC Glucose 141 H Radiography Diagnostic Testing: Radiology Impression Chest X-Ray 10/28/23 13:45 IMPRESSION: No acute abnormality is seen. Electronically Signed: Jesse Stewart MD at 14:09 EDT , Physical Exam Const alert, oriented x3 and no apparent distress Constitutional Narrative: Morbidly obese, otherwise sitting up comfortably in bedside chair, conversing normally, in no acute distress. General Appearance: cooperative and comfortable HEENT normocephalic, head/scalp atraumatic, hearing grossly normal bilaterally, nasal mucous membranes and turbinates normal and moist oral mucous membranes Eyes PERRL, EOMs intact bilaterally and conjunctivae normal Neck full ROM Chest inspection of chest normal Resp normal respiratory effort and no use of accessory muscles Resp Narrative: Diminished breath sounds bilaterally suspected due to body habitus. No wheezing or crackles noted. Cardio regular rate, regular rhythm, no murmurs and peripheral pulses 2+ throughout GI normal to inspection, nondistended, normoactive bowel sounds, soft to palpation, non-tender and non-distended Back/Spine normal ROM Extremity Extremity Narrative: Bilateral lower extremities wrapped with Celso wrap from toes up to knee. Noted to have significant bilateral lower extremity pitting edema on admission. Neuro no focal motor deficits and no sensory deficits noted Speech: speech normal Psych mental status grossly normal Assessment & Plan Assessment/Plan (1) Impaired mobility and ADLs: PLAN: Plan Patient is a 68-year-old male who presented [facility] ED on 10/28/2023 with failure to thrive. 1. Adult failure to thrive; Recent history of mechanical fall with RLE hematoma and mild head laceration; history of chronic lower extremity lymphedema Recent hospitalization at [facility] after patient had mechanical fall at home resulting in a facial laceration and right lower extremity hematoma. Was discharged to [facility] rehab facility and then was discharged home from there on 10/26. Unable to take care of himself at home so came to [facility] for further evaluation. Workup in the ED was fairly benign. Has remained hemodynamically stable since admission. ? PT/OT/case management following. Has Celso wraps in place in bilateral legs, continue these wraps, okay for dressing changes with nursing staff while inpatient. Given 3 doses of IV Lasix to help with lower extremity swelling, then will resume home Lasix. Planning for SNF on discharge. Medically ready for discharge on 10/28, awaiting placement. 2. Chronic RLE DVT ? Recent LE duplex ultrasound from outside hospital on 10/21 showed chronic DVT in right proximal femoral vein and right popliteal vein. Continue home Eliquis. 3. Sinus bradycardia ? Noted to have sinus bradycardia to the 40s and 50s since admission. Home regimen unclear but patient was on both beta-maren and calcium channel maren with this bradycardia. Will continue Coreg 25 mg twice daily, holding diltiazem and Lopressor that are also listed in chart. Continue cardiac monitoring. Chronic medical conditions: ? Chronic normocytic anemia: Hemoglobin 8.7 on admit, baseline hemoglobin 8-9. Stable. ? CKD stage II: Creatinine 1.19 on admit. Baseline creatinine appears to be around 1.1-1.3. Stable. ? Type 2 diabetes mellitus: Home regimen of insulin glargine 75 units daily, insulin lispro sliding scale with meals, tirzepatide 5 mg weekly. Continue Lantus 60 units daily, sliding scale insulin with meals while inpatient, adjust as needed. ? PAF/flutter: Stable. Continue Coreg and Eliquis. ? Hypertension: Stable. Continue home amlodipine, Coreg. Giving IV Lasix x 3 doses as noted above, then will transition back to home p.o. Lasix. ? Hyperlipidemia: Continue home statin. ? Morbid obesity: BMI 47 on admit. Complicates hospital course, care and prognosis. ? PAWEL: Continue home CPAP. ? Former tobacco use: Encouraged continued cessation. DVT prophylaxis: Eliquis CODE STATUS: DNR CCA, DNI Expected disposition: SNF, medically ready for discharge on 10/28, awaiting placement Total clinical time spent by myself addressing the patient's medical issues, reviewing all the data, and collaborating with patient's care team: 35 minutes. Charges/Coding Visit Charges Inpatient E&M: 68237 Subs Hosp L2
[2023-10-29] MEDS: Mag Hydrox/Al Hydrox/Simeth 30 ML UDC PO (13:36)
--- NOTE | 2023-10-29 15:24 | CASEMGMT ---
QUIN CM in to discuss LEUNG form with patient. RN CM explained LEUNG form, patient voiced understanding. Pt signed form and filed in chart. Pt provided with a copy of signed LEUNG form. Patient had no further questions or concerns at this time.
--- NOTE | 2023-10-29 15:57 | CHAPLAIN ---
Type of Pastoral Visit _x__ Initial Visit ___ Follow-up Visit ___ On-call Visit ___ General Patient Visit ___ Spiritual Assessment ___ Family Conference ___ Bereavement ___ Rapid Response ___ Code Blue ___ Other (describe below) Pastoral Care Referral From _x__ Patient ___ Family ___ Nurse ___ Physician ___ Jewelry Enameler ___ Block Engraver ___ Other (describe below) Sacrament/Intervention _x__ Active listening ___ Anointing ___ Moravian ___ Bereavement ___ Communion _x__ [place]iza exploration ___ ___ Life review _x__ Prayer ___ Reconciliation ___ Sacrament of Sick _x__ Supportive presence ___ Wedding ___ Other (describe below) Pastoral Comments patient was recently seen several times in another hospital; pt was surprised to see this hemotherapist who works at both hospitals but exclaimed how pleased he was to have the visit and the support; pt did not do well on his return home from previous hospital and admits that he got too weak and unable to care for himself; pt is worried about where he can go next for additional therapy and rehab; pt is worried about going to an ECF due to of his in past year while she was in the assisted; pt is a person of aziza and has a good connection to a mormonism which is my family and I don't know what I could do without them; prayer and presence given; pt very grateful
[2023-10-29] MEDS: Juven (unflavored) Packet 1 PACKET PO (17:03)
[2023-10-29 17:19] LABS: Bedside Glucose 126 mg/dL (74-106)
[2023-10-29] MEDS: MELATONIN 3 MG TABLET PO (21:21)
[2023-10-29 22:03] LABS: Bedside Glucose 144 mg/dL (74-106)
[2023-10-30] VITALS (11 sets, daily range): BP systolic 123–138; BP diastolic 58–69; PULSE 52–71; RESP 13–19; TEMP 36.4–36.8; O2SAT 95–100; BMI 47.7; BMI 46.5
[2023-10-30] MEDS: Nystatin Powder 15gm Bottle 1 APPLIC TOPICAL ×3 (05:27→21:30)
[2023-10-30] MEDS: Gabapentin 300 MG Capsule PO ×3 (05:27→21:27)
[2023-10-30 06:02] LABS: Bedside Glucose 107 mg/dL (74-106)
[2023-10-30] MEDS: Budesonide Respules 0.5 MG/2 ML AMPUL.NEB. INHALATION ×2 (07:27→19:20)
[2023-10-30] MEDS: Menthol/Lanolin/Calamine/Znox 113 GM Tube 1 APPLIC TOPICAL ×3 (10:52→18:31)
[2023-10-30] MEDS: Juven (unflavored) Packet 1 PACKET PO ×2 (10:52→16:55)
[2023-10-30] MEDS: Aspirin E.C. 81 MG Tablet PO (10:53)
[2023-10-30] MEDS: Ferrous Sulfate 325 MG Tablet PO (10:53)
[2023-10-30] MEDS: Ascorbic Acid 500 MG Tablet 250 MG PO (10:54)
[2023-10-30] MEDS: APIXABAN 5 MG TABLET PO ×2 (10:58→21:29)
[2023-10-30] MEDS: Atorvastatin Calcium 20 MG Tablet PO (10:58)
[2023-10-30] MEDS: Insulin Glargine-YFGN 100 UNIT/ML Pen 60 UNIT SC (11:02)
[2023-10-30 12:19] LABS: Bedside Glucose 147 mg/dL (74-106)
--- NOTE | 2023-10-30 15:14 | NURSING ---
Up with therapy, took a walk in the rocha. Now sitting in chair. This RN made pt use his I.S and Pep therapy. Pt able to do 10 reps of each one.
[2023-10-30] MEDS: Carvedilol 25 MG Tablet PO ×2 (15:24→21:29)
[2023-10-30] MEDS: amLODIPine 5 MG Tablet PO (15:25)
[2023-10-30] MEDS: 0.9% Saline Lock 10 ML Syringe IV ×3 (15:26→21:27)
--- NOTE | 2023-10-30 17:12 | PN.HOSP_ITS ---
Reason for Visit Reason for Visit: Diagnoses Other reduced mobility (10/28/23) Other specified health status (10/28/23) Subjective Subjective Patient was seen and examined today, he still has quite a bit of edema in his lower legs-worse on the right with more redness in the right lower leg. Patient does have lymphedematous changes over both lower legs, there are 3 eschars noted on the lateral aspect of the right leg-these areas are not draining any fluid. Objective Data Objective Data Vital Signs: Vital Signs Temp Pulse Resp BP Pulse Ox O2 Del Method O2 Flow Rate 97.6 F L 54 L 16 138/67 H 97 Room Air 2 10/30/23 15:08 10/30/23 15:08 10/30/23 15:08 10/30/23 15:08 10/30/23 15:08 10/30/23 15:08 10/30/23 00:41 Oxygen Flow Rate (L/min) 2 Oxygen Delivery Method Room Air Weight: 164.5 kg Body Mass Index (BMI) 46.5 Intake & Output: Intake and Output for Last 24 Hours 10/28/23 10/29/23 10/30/23 23:59 23:59 23:59 Intake Total 300 / 300 200 / 500 840 / 840 Output Total 2000 / 2000 250 / 250 Balance 300 / 300 -1800 / -1500 590 / 590 Lab / Micro Data 10/29/23 07:18 10/29/23 07:18 Labs: Laboratory Results - last 24 hr 10/29/23 17:02: POC Glucose 126 H 10/29/23 21:15: POC Glucose 144 H 10/30/23 05:40: POC Glucose 107 H 10/30/23 12:00: POC Glucose 147 H Physical Exam Const alert, oriented x3 and no apparent distress Constitutional Narrative: Patient is morbidly obese General Appearance: cooperative, well kempt and well developed Orientation / Consciousness: awake, oriented to person, oriented to place and oriented to time HEENT normocephalic and moist oral mucous membranes Eyes PERRL, EOMs intact bilaterally and conjunctivae normal Neck supple, no JVD and thyroid normal General: trachea midline Resp normal respiratory effort, no retractions, no use of accessory muscles and clear to auscultation bilaterally Auscultation: Negative for rales, rhonchi or wheezes Cardio regular rate, regular rhythm, S1 normal heart sound, S2 normal heart sound, no murmurs, no rub and no gallops GI normal to inspection, nondistended, normoactive bowel sounds, soft to palpation, non-tender and non-distended Extremity Extremity Narrative: Generalized edema is noted over both lower legs worse on the right, there is redness noted with the edema on the right lower leg, there are 3 eschars noted over the lateral aspect of the right lower leg, no drainage is noted from these areas Skin Skin Narrative: There are 3 eschars noted over the lateral aspect of the right lower leg Neuro oriented x3, CN's II-XII intact bilaterally, no focal motor deficits and no sensory deficits noted Sensorium / Orientation: awake and alert Speech: speech normal Psych affect normal Assessment & Plan Assessment/Plan (1) Impaired mobility and ADLs: PLAN: Plan 1. Acute debility secondary to multiple medical problems and morbid obesity-PT and OT will continue to see the patient, he will need temporary placement in long-term facility for rehab services #2 bilateral lower extremity edema with lymphedematous changes of the skin-I have decided to place the patient on IV Lasix in an attempt to reduce the edema, patient states that nursing in the past has been unable to insert a Cohen catheter due to damage to his prostate from hernia surgery in the past, patient states he will be able to get up to a bedside commode to urinate. #3 right lower leg wounds-eschars present-wound care nurse is seeing the patient #4 paroxysmal atrial fibs and flutter-patient appears to be in sinus rhythm to day on my examination, patient is on Eliquis and rate limiting medications #5 type 2 diabetes-patient's blood sugars will be monitored, sliding scale insulin will be used as needed #6 essential hypertension-patient will remain on his present medications, they will be adjusted as needed Total clinical time spent by myself addressing the patient's medical issues, reviewing all of his data, and collaborating with the patient's care team: 50 minutes Charges/Coding Visit Charges Inpatient E&M: 54181 [facility] Hosp L3
[2023-10-30 17:22] LABS: Bedside Glucose 124 mg/dL (74-106)
--- NOTE | 2023-10-30 18:00 | CASEMGMT ---
Social Work To patient's room today, no family present. Followed up in trying to reach the son via phone, so as to include in discharge planning. A female answered the phone and indicated there is no Hu at this number. Called patient's friend Braxton, who provided the number for the son, originally when patient was in the ED. Clarified the number, which was one digit off. Updated demographics. Called the son, Hu Alvarez, who answered the phone right away. Hu reports would like for patient to to to [facility]. Educated that it is this singer songwriter's understanding from handoff that TCU is not able to accept, so do need to consider other options. After much discussion Hu identified 2 additional choices from SNF list given to patient: [facility] and then [facility]. Hu reports it is okay to call Hu whenever needed. Inquired if Hu has a copy of any advance directives at home for patient. Hu reports there are some power of assistant county attorney paperwork done, and if can find at home will bring paperwork in. Hu reports when visits tomorrow, will talk with patient about son's input on next SNF choices. Emotional support and supportive listening offered to the son. Phone call 40 minutes. Referrals being sent to [facility] and [facility] via [facility], so on Wednesday able to ascertain which facilities would be an option for patient. Plan: Short term SNF. -PALOMO Bonilla
[2023-10-30] MEDS: Furosemide 20 MG/2 ML VIAL IV ×2 (18:30→21:28)
[2023-10-30] MEDS: Potassium Chloride Oral Tablet 20 MEQ PO (18:30)
[2023-10-30] MEDS: MELATONIN 3 MG TABLET PO (21:28)
[2023-10-30 22:20] LABS: Bedside Glucose 130 mg/dL (74-106)
[2023-10-31] VITALS (7 sets, daily range): BP systolic 117–137; BP diastolic 59–75; PULSE 51–64; RESP 14–19; TEMP 36.5–37.3; O2SAT 95–99; BMI 46.1
[2023-10-31] MEDS: Furosemide 20 MG/2 ML VIAL IV ×3 (06:43→23:34)
[2023-10-31] MEDS: Nystatin Powder 15gm Bottle 1 APPLIC TOPICAL ×3 (06:43→23:38)
[2023-10-31] MEDS: Gabapentin 300 MG Capsule PO ×3 (06:43→23:37)
[2023-10-31] MEDS: Budesonide Respules 0.5 MG/2 ML AMPUL.NEB. INHALATION (07:06)
[2023-10-31] MEDS: Juven (unflavored) Packet 1 PACKET PO ×2 (07:59→15:55)
[2023-10-31] MEDS: Potassium Chloride Oral Tablet 20 MEQ PO ×2 (08:03→15:57)
[2023-10-31] MEDS: Aspirin E.C. 81 MG Tablet PO (08:04)
[2023-10-31] MEDS: amLODIPine 5 MG Tablet PO (08:04)
[2023-10-31] MEDS: Atorvastatin Calcium 20 MG Tablet PO (08:04)
[2023-10-31] MEDS: APIXABAN 5 MG TABLET PO (08:04)
[2023-10-31] MEDS: Menthol/Lanolin/Calamine/Znox 113 GM Tube 1 APPLIC TOPICAL ×3 (08:05→23:31)
[2023-10-31] MEDS: Carvedilol 25 MG Tablet PO ×2 (08:05→23:35)
[2023-10-31] MEDS: Ferrous Sulfate 325 MG Tablet PO (08:06)
[2023-10-31] MEDS: Insulin Glargine-YFGN 100 UNIT/ML Pen 60 UNIT SC (08:09)
--- NOTE | 2023-10-31 08:12 | NURSING ---
Pt is sitting on edge of bed eating breakfast at this time. BS is 92. Will monitor pt.
[2023-10-31 08:15] LABS: Anion Gap 1 (5-15); BUN 28 mg/dL (7-18); BUN/Creat Ratio 23.3 RATIO (10-20); Calcium,Total 8.6 mg/dL (8.5-10.1); Chloride 106 mmol/L (98-107); EST Glomerular Filtration Rate 64 mL/min (>60); Est Glom Filt Rate - Afr Amer 77 mL/min (>60); Estimated Creatinine Clearance 95.47 ml/min; Glucose 93 mg/dL (74-106); Potassium 4.2 mmol/L (3.5-5.1); Sodium Level 140 mmol/L (136-145)
[2023-10-31 08:32] LABS: Bedside Glucose 92 mg/dL (74-106)
--- NOTE | 2023-10-31 12:08 | PN.HOSP_ITS ---
Reason for Visit Reason for Visit: Diagnoses Other reduced mobility (10/28/23) Other specified health status (10/28/23) Subjective Subjective Patient was seen and examined today, BUN was slightly elevated today again, potassium was normal. I elected to give the patient 1 dose of Zaroxolyn today, he remains on IV Lasix currently in an attempt to diurese and reduce fluid in the legs. Objective Data Objective Data Vital Signs: Vital Signs Temp Pulse Resp BP Pulse Ox O2 Del Method O2 Flow Rate 97.7 F L 57 L 18 124/62 H 95 Room Air 2 10/31/23 07:49 10/31/23 07:49 10/31/23 07:49 10/31/23 07:49 10/31/23 07:49 10/31/23 07:49 10/31/23 03:00 Oxygen Flow Rate (L/min) 2 Oxygen Delivery Method Room Air Weight: 163.095 kg Body Mass Index (BMI) 46.1 Intake & Output: Intake and Output for Last 24 Hours 10/29/23 10/30/23 10/31/23 23:59 23:59 23:59 Intake Total 200 / 500 1290 / 1290 Output Total 2000 / 2000 500 / 500 550 / 550 Balance -1800 / -1500 790 / 790 -550 / -550 Lab / Micro Data 10/29/23 07:18 10/31/23 07:51 Labs: Laboratory Results - last 24 hr 10/30/23 12:00: POC Glucose 147 H 10/30/23 16:54: POC Glucose 124 H 10/30/23 21:25: POC Glucose 130 H 10/31/23 07:51: Sodium 140, Potassium 4.2, Chloride 106, Carbon Dioxide 33.0 H, Anion Gap 1 L, BUN 28 H, Creatinine 1.20, Estim Creat Clear Calc 95.47, Est GFR (MDRD) Af Amer 77, Est GFR (MDRD) Non-Af 64, BUN/Creatinine Ratio 23.3 H, Glucose 93, Calcium 8.6 10/31/23 07:54: POC Glucose 92 Physical Exam Narrative alert, oriented x3 and no apparent distress Constitutional Narrative: Patient is morbidly obese General Appearance: cooperative, well kempt and well developed Orientation / Consciousness: awake, oriented to person, oriented to place and o riented to time HEENT normocephalic and moist oral mucous membranes Eyes PERRL, EOMs intact bilaterally and conjunctivae normal Neck supple, no JVD and thyroid normal General: trachea midline Resp normal respiratory effort, no retractions, no use of accessory muscles and clear to auscultation bilaterally Auscultation: Negative for rales, rhonchi or wheezes Cardio regular rate, regular rhythm, S1 normal heart sound, S2 normal heart sound, no murmurs, no rub and no gallops GI normal to inspection, nondistended, normoactive bowel sounds, soft to palpation, non-tender and non-distended Extremity Extremity Narrative: Generalized edema is noted over both lower legs worse on the right, there is redness noted with the edema on the right lower leg, there are 3 eschars noted over the lateral aspect of the right lower leg, no drainage is noted from these areas Skin Skin Narrative: There are 3 eschars noted over the lateral aspect of the right lower leg Neuro oriented x3, CN's II-XII intact bilaterally, no focal motor deficits and no sensory deficits noted Sensorium / Orientation: awake and alert Speech: speech normal Psych affect normal Assessment & Plan Assessment/Plan (1) Impaired mobility and ADLs: PLAN: Plan 1. Acute debility secondary to multiple medical problems and morbid obesity-PT and OT will continue to see the patient, he will need temporary placement in senior living facility for rehab services #2 bilateral lower extremity edema with lymphedematous changes of the skin- patient will remain on IV Lasix and again I will give him a dose of oral Zaroxolyn today #3 right lower leg wounds-eschars present-wound care nurse is seeing the patient #4 paroxysmal atrial fibs and flutter-patient appears to be in sinus rhythm today on my examination, patient is on Eliquis and rate limiting medications #5 type 2 diabetes-patient's blood sugars will be monitored, sliding scale insulin will be used as needed #6 essential hypertension-patient will remain on his present medications, they will be adjusted as needed #7 iron deficiency anemia-etiology unclear, I will repeat his CBC tomorrow, I will give him an infusion of Venofer Total clinical time spent by myself addressing the patient's medical issues, reviewing all of his data, and collaborating with the patient's care team: 35 minutes Charges/Coding Visit Charges Inpatient E&M: 78337 Subs Hosp L2
[2023-10-31] MEDS: Sodium Ferric Gluconat/Sucrose 250 MG in 0.9% Normal Saline (250mL Bag) 250 ML 135 MG IV (13:46)
[2023-10-31] MEDS: metOLazone 5 MG Tablet PO (14:53)
[2023-10-31] MEDS: 0.9% Saline Lock 10 ML Syringe IV (15:01)
--- NOTE | 2023-10-31 15:36 | NURSING ---
Pt stated he voided once maybe twice this morning after lasix. THis RN bladder scanned pt and only obtained 2ml. Will continue to monitor. Pt did have a medium sized bm and there was a significant amt of bright red blood. Small hemoroids noted. Will notify .
[2023-10-31 15:50] LABS: Bedside Glucose 133 mg/dL (74-106)
[2023-10-31] MEDS: Insulin Lispro 100 UNIT/ML INSULN.PEN SC (16:01)
[2023-10-31 16:21] LABS: Bedside Glucose 161 mg/dL (74-106)
--- NOTE | 2023-10-31 17:18 | CON.PCM.GI_ITS ---
HPI Consult Data Date of Consult: 10/31/23 HPI Narrative Reason for Consultation: Anemia and GI bleed HPI Narrative: SHANELLE HUNTER, is a 68 M who presents to the ED because he cannot care for himself at home. He states on the way here he was emotional about having to come back to the hospital and he had 3 jolts of chest pain that have not returned and he had no other associated symptoms. He has a past medical history of Hx VTE, HF unclear type, Valvular Heart Disease s/p AV replacement, PAF/Flutter, Morbid Obesity, Chronic anemia, CKD stage II based on current GFR trending, HTN, HLD, Diabetes mellitus type II, BL LE Chronic lymphedema/PVD, PAWEL He also has a history of leaving earlier than recommended from [facility] rehab facility the day prior with plan transition to home PT and OT with history of 10/03/2019 for evaluation in the ED with mechanical fall with facial laceration and right lower extremity hematoma transferred to [facility] for evaluation of the right lower extremity with unclear exact intervention but strong recommendation for Celso wrap's and eventual transition to rehab given inability to take care of himself but unfortunately upon his return to home he realized he was unable to care for himself prompting transition to the ED for transition back to rehab. CBC with WBC 5.6, hemoglobin 8.7, MCV 91.2, platelet 276 with lymphopenia, BMP with chloride 108, carbon oxide 34, BUN/creatinine 21/1.19, GFR 65, glucose 139, troponin 21, chest x-ray with no acute cardiopulmonary findings. I was asked to see him due to ongoing lower GI bleeding in the setting of anemia. [facility] Medical History Atrial fibrillation/flutter Benign essential HTN Chronic acquired lymphedema Chronic anemia CKD (chronic kidney disease), stage II DM2 (diabetes mellitus, type 2) Former tobacco use History of DVT (deep vein thrombosis) Morbid obesity Sleep apnea Valvular heart disease Venous insufficiency (chronic) (peripheral) Home Medications ascorbic acid (vitamin C) 250 mg tablet 250 mg PO DAILY 03/17/19 [History Last Taken Unknown] aspirin 81 mg tablet,delayed release 81 mg PO DAILY 03/17/19 [History Last Taken Unknown] carvedilol 25 mg tablet 25 mg PO BID 03/17/19 [History Last Taken Unknown] amlodipine 5 mg tablet 5 mg PO DAILY 10/28/23 [History Last Taken Unknown] apixaban 5 mg tablet (Eliquis) 5 mg PO BID 10/28/23 [History Last Taken Unknown] atorvastatin 20 mg tablet 20 mg PO DAILY 10/28/23 [History Last Taken Unknown] budesonide-formoterol HFA 160 mcg-4.5 mcg/actuation aerosol inhaler (Symbicort) 2 puff inhalation DAILY 10/28/23 [History Last Taken Unknown] bumetanide 1 mg tablet 0.5 mg PO BID 10/28/23 [History Last Taken Unknown] diltiazem HCl 180 mg capsule,extended release 24 hr 180 mg PO DAILY 10/28/23 [History Last Taken Unknown] doxycycline hyclate 100 mg capsule 100 mg PO BID 10/28/23 [History Last Taken Unknown] ferrous sulfate 325 mg (65 mg iron) tablet (Feosol) 325 mg PO DAILY 10/28/23 [History Last Taken Unknown] furosemide 40 mg tablet 40 mg PO DAILY 10/28/23 [History Last Taken Unknown] gabapentin 300 mg capsule 300 mg PO TID 10/28/23 [History Last Taken Unknown] insulin glargine 100 unit/mL (3 mL) subcutaneous pen 75 unit subcut DAILY 10/28/23 [History Last Taken Unknown] insulin lispro 100 unit/mL subcutaneous pen See Rx Instructions subcut TID 10/28/23 [History Last Taken Unknown] melatonin 3 mg tablet 3 mg PO QHS 10/28/23 [History Last Taken Unknown] metoprolol tartrate 25 mg tablet 12.5 mg PO BID 10/28/23 [History Last Taken Unknown] oxycodone-acetaminophen 5 mg-325 mg tablet 1 tab PO Q6H PRN pain 10/28/23 [History Last Taken Unknown] polyethylene glycol 3350 17 gram/dose oral powder (Miralax) 17 g PO BID 10/28/23 [History Last Taken Unknown] tirzepatide 5 mg/0.5 mL subcutaneous pen injector (Mounjaro) 5 mg subcut QWEEK 10/28/23 [History Last Taken Unknown] Allergy/AdvReac Type Severity Reaction Status Date / Time ibuprofen [From Nuprin] Allergy Unknown Verified 10/28/23 13:13 Family History Mother No problems noted. Father Cirrhosis of liver Alcoholism Surgical History History of bladder surgery History of right inguinal hernia repair History of tonsillectomy and adenoidectomy S/P AVR (aortic valve replacement) Social History household members: children Smoking Status: Former smoker how long ago did patient quit smoking: Quit ~ 20 yrs prior, smoked age 15 until quit ~ 2 ppd. alcohol intake: never substance use type: does not use ROS ROS Narrative Admission Review of Systems: CONSTITUTIONAL: No weight loss, fever, chills, + weakness or fatigue. HEENT: Eyes: No visual loss, blurred vision, double vision or yellow sclerae. Ears, Nose, Throat: No hearing loss, sneezing, congestion, runny nose or sore throat. SKIN: No rash or itching, lesions, wounds except for significant bilateral lower extremity venous stasis skin disease, stasis blisters, status post recent fall right lower extremity with hematoma resolving, staged ecchymoses. CARDIOVASCULAR: No chest pain, chest pressure or chest discomfort, palpitations, edema, orthopnea, syncopal events. RESPIRATORY: No shortness of breath, cough or sputum, wheezing, hemoptysis. GASTROINTESTINAL: No anorexia, nausea, vomiting or diarrhea, abdominal pain, melena, BRBPR. GENITOURINARY: No dysuria, frequency, urgency or retention. NEUROLOGICAL: No headache, dizziness, syncope, paralysis, ataxia, numbness or tingling in the extremities, focal weakness, change in bowel or bladder control, seizure. MUSCULOSKELETAL: + muscle, back pain, joint pain or stiffness. HEMATOLOGIC: + Chronic anemia, easy bleeding/bruising. LYMPHATICS: No enlarged nodes. No history of splenectomy. PSYCHIATRIC: No history of depression or anxiety. ENDOCRINOLOGIC: No reports of sweating, cold or heat intolerance. No polyuria or polydipsia. ALLERGIES: + History of allergic rhinitis. Physical Exam Narrative alert, oriented x3 and no apparent distress Constitutional Narrative: Patient is morbidly obese General Appearance: cooperative, well kempt and well developed Orientation / Consciousness: awake, oriented to person, oriented to place and oriented to time HEENT normocephalic and moist oral mucous membranes Eyes PERRL, EOMs intact bilaterally and conjunctivae normal Neck supple, no JVD and thyroid normal General: trachea midline Resp normal respiratory effort, no retractions, no use of accessory muscles and clear to auscultation bilaterally Auscultation: Negative for rales, rhonchi or wheezes Cardio regular rate, regular rhythm, S1 normal heart sound, S2 normal heart sound, no murmurs, no rub and no gallops GI normal to inspection, nondistended, normoactive bowel sounds, soft to palpation, non-tender and non-distended Extremity Extremity Narrative: Generalized edema is noted over both lower legs worse on the right, there is redness noted with the edema on the right lower leg, there are 3 eschars noted over the lateral aspect of the right lower leg, no drainage is noted from these areas Skin Skin Narrative: There are 3 eschars noted over the lateral aspect of the right lower leg Neuro oriented x3, CN's II-XII intact bilaterally, no focal motor deficits and no sensory deficits noted Sensorium / Orientation: awake and alert Speech: speech normal Psych affect normal Lab / Micro Data 10/29/23 07:18 10/31/23 07:51 Labs: Laboratory Results - last 24 hr 10/30/23 16:54: POC Glucose 124 H 10/30/23 21:25: POC Glucose 130 H 10/31/23 07:51: Sodium 140, Potassium 4.2, Chloride 106, Carbon Dioxide 33.0 H, Anion Gap 1 L, BUN 28 H, Creatinine 1.20, Estim Creat Clear Calc 95.47, Est GFR (MDRD) Af Amer 77, Est GFR (MDRD) Non-Af 64, BUN/Creatinine Ratio 23.3 H, Glucose 93, Calcium 8.6 10/31/23 07:54: POC Glucose 92 10/31/23 11:27: POC Glucose 133 H 10/31/23 16:00: POC Glucose 161 H Assessment & Plan Assessment/Plan (1) Impaired mobility and ADLs: PLAN: Plan Patient is a 68-year-old male who presented [facility] ED on 10/28/2023 with failure to thrive. 1. Adult failure to thrive; Recent history of mechanical fall with RLE hematoma and mild head laceration; 2. Chronic RLE DVT ? Recent LE duplex ultrasound from outside hospital on 10/21 showed chronic DVT in right proximal femoral vein and right popliteal vein. His Eliquis on hold due to anemia and GI bleeding in the hospital. 3. Anemia and lower GI bleed ? Chronic normocytic anemia: Hemoglobin 8.7 on admit, baseline hemoglobin 8-9. Stable. ? He has been having multiple episodes of lower GI bleeding. He will need to undergo Charges/Coding Visit Charges Inpatient E&M: 56708 Init Hosp L3
[2023-10-31 18:46] LABS: Hematocrit 30.9 % (40-54); Hemoglobin 9.1 g/dL (13.0-16.5)
[2023-10-31] MEDS: MELATONIN 3 MG TABLET PO (23:33)
[2023-11-01 00:09] LABS: Bedside Glucose 106 mg/dL (74-106)
[2023-11-01 06:00] VITALS: BMI 45.3
[2023-11-01] MEDS: Nystatin Powder 15gm Bottle 1 APPLIC TOPICAL ×3 (06:05→23:37)
[2023-11-01] MEDS: Furosemide 20 MG/2 ML VIAL IV ×2 (06:05→14:37)
[2023-11-01] MEDS: Gabapentin 300 MG Capsule PO ×3 (06:05→23:39)
[2023-11-01 06:36] LABS: Bedside Glucose 93 mg/dL (74-106)
[2023-11-01] MEDS: Budesonide Respules 0.5 MG/2 ML AMPUL.NEB. INHALATION ×2 (07:06→19:59)
[2023-11-01 07:07] VITALS: PULSE 68; RESP 18; O2SAT 96
[2023-11-01 07:26] LABS: Anion Gap 3 (5-15); BUN 28 mg/dL (7-18); BUN/Creat Ratio 22.4 RATIO (10-20); Chloride 102 mmol/L (98-107); Creatinine, Serum 1.25 mg/dL (0.70-1.30); EST Glomerular Filtration Rate 61 mL/min (>60); Est Glom Filt Rate - Afr Amer 74 mL/min (>60); Estimated Creatinine Clearance 90.69 ml/min; Glucose 91 mg/dL (74-106); Sodium Level 138 mmol/L (136-145)
--- NOTE | 2023-11-01 08:30 | WOUNDNOTE ---
skin photo: left lower leg
--- NOTE | 2023-11-01 08:31 | WOUNDNOTE ---
wound photo: right lower leg
[2023-11-01 09:30] VITALS: BP 144/70; PULSE 60; RESP 20; TEMP 36.9; O2SAT 93
[2023-11-01] MEDS: Menthol/Lanolin/Calamine/Znox 113 GM Tube 1 APPLIC TOPICAL ×2 (09:36→23:37)
[2023-11-01] MEDS: Potassium Chloride Oral Tablet 20 MEQ PO ×2 (09:36→18:00)
[2023-11-01] MEDS: Aspirin E.C. 81 MG Tablet PO (09:37)
[2023-11-01] MEDS: Juven (unflavored) Packet 1 PACKET PO (09:37)
[2023-11-01] MEDS: Atorvastatin Calcium 20 MG Tablet PO (09:37)
[2023-11-01] MEDS: Carvedilol 25 MG Tablet PO ×2 (09:37→23:36)
[2023-11-01] MEDS: amLODIPine 5 MG Tablet PO (09:37)
[2023-11-01] MEDS: Ferrous Sulfate 325 MG Tablet PO (09:40)
[2023-11-01] MEDS: Insulin Glargine-YFGN 100 UNIT/ML Pen 60 UNIT SC (09:48)
[2023-11-01 11:16] LABS: Bedside Glucose 144 mg/dL (74-106)
[2023-11-01] MEDS: Insulin Lispro 100 UNIT/ML INSULN.PEN SC (12:35)
--- NOTE | 2023-11-01 12:38 | CASEMGMT ---
Social Work Pt's son here, provided copies of LW/POA to SW, SW placed documents on chart. Son states he would prefer pt go to [facility], rather than [facility]. SW will notify facilities via [employer].
[2023-11-01 12:59] LABS: Bedside Glucose 208 mg/dL (74-106)
--- NOTE | 2023-11-01 14:00 | CASEMGMT ---
Social Work- PASRR started. Necessary records faxed to [employer] to begin precert for pt d/c to [facility]. Plan: [facility]; pending precert LEAHTA Alonso
[2023-11-01 14:31] VITALS: BP 143/69; PULSE 55; RESP 20; TEMP 36.3; O2SAT 96
[2023-11-01] MEDS: Bisacodyl 5 MG Tablet 20 MG PO (14:37)
--- NOTE | 2023-11-01 15:31 | PCM.PN.HOSP ---
Reason for Visit Reason for Visit: Diagnoses Other reduced mobility (10/28/23) Other specified health status (10/28/23) Subjective Subjective Patient was seen and examined today, he is complaining to nursing that his evening dose of Lasix is interfering with his sleep, I have decided to change it to a twice daily dosage at 3:30 PM and 8 AM daily. According to charting, patient is currently on room air. Objective Data Objective Data Vital Signs: Vital Signs Temp Pulse Resp BP Pulse Ox O2 Del Method O2 Flow Rate 97.4 F L 55 L 20 H 143/69 H 96 Room Air 2 11/01/23 14:31 11/01/23 14:31 11/01/23 14:31 11/01/23 14:31 11/01/23 14:31 11/01/23 14:41 10/31/23 03:00 Oxygen Flow Rate (L/min) 2 Oxygen Delivery Method Room Air Weight: 160.1 kg Body Mass Index (BMI) 45.3 Intake & Output: Intake and Output for Last 24 Hours 10/30/23 10/31/23 11/01/23 23:59 23:59 23:59 Intake Total 1290 / 1290 1320 / 1320 Output Total 500 / 500 2050 / 2050 850 / 850 Balance 790 / 790 -730 / -730 -850 / -850 Lab / Micro Data 10/31/23 18:17 11/01/23 06:19 Labs: Laboratory Results - last 24 hr 10/31/23 11:27: POC Glucose 133 H 10/31/23 16:00: POC Glucose 161 H 10/31/23 18:17: Hgb 9.1 L, Hct 30.9 L 10/31/23 23:44: POC Glucose 106 11/01/23 06:14: POC Glucose 93 11/01/23 06:19: Sodium 138, Potassium 4.0, Chloride 102, Carbon Dioxide 33.0 H, Anion Gap 3 L, BUN 28 H, Creatinine 1.25, Estim Creat Clear Calc 90.69, Est GFR (MDRD) Af Amer 74, Est GFR (MDRD) Non-Af 61, BUN/Creatinine Ratio 22.4 H, Glucose 91, Calcium 9.0 11/01/23 09:47: POC Glucose 144 H 11/01/23 12:33: POC Glucose 208 H Physical Exam Narrative alert, oriented x3 and no apparent distress Constitutional Narrative: Patient is morbidly obese General Appearance: cooperative, well kempt and well developed Orientation / Consciousness: awake, oriented to person, oriented to place and oriented to time HEENT normocephalic and moist oral mucous membranes Eyes PERRL, EOMs intact bilaterally and conjunctivae normal Neck supple, no JVD and thyroid normal General: trachea midline Resp normal respiratory effort, no retractions, no use of accessory muscles and clear to auscultation bilaterally Auscultation: Negative for rales, rhonchi or wheezes Cardio regular rate, regular rhythm, S1 normal heart sound, S2 normal heart sound, no murmurs, no rub and no gallops GI normal to inspection, nondistended, normoactive bowel sounds, soft to palpation, non-tender and non-distended Extremity Extremity Narrative: Generalized edema is noted over both lower legs worse on the right, there is redness noted with the edema on the right lower leg, there are 3 eschars noted over the lateral aspect of the right lower leg, no drainage is noted from these areas Skin Skin Narrative: There are 3 eschars noted over the lateral aspect of the right lower leg Neuro oriented x3, CN's II-XII intact bilaterally, no focal motor deficits and no sensory deficits noted Sensorium / Orientation: awake and alert Speech: speech normal Psych affect normal Assessment & Plan Assessment/Plan (1) Impaired mobility and ADLs: PLAN: Plan 1. Acute debility secondary to multiple medical problems and morbid obesity-PT and OT will continue to see the patient, he will need temporary placement in long term facility for rehab services #2 bilateral lower extremity edema with lymphedematous changes of the skin-patient will remain on IV Lasix-I have adjusted the dose to twice a day #3 right lower leg wounds-eschars present-wound care nurse is seeing the patient #4 paroxysmal atrial fibs and flutter-patient appears to be in sinus rhythm today on my examination, patient's Eliquis is being held due to concerns of GI bleeding #5 type 2 diabetes-patient's blood sugars will be monitored, sliding scale insulin will be used as needed #6 essential hypertension-patient will remain on his present medications, they will be adjusted as needed #7 iron deficiency anemia-etiology unclear, hemoglobin appears to be stable #8 hematochezia-patient will undergo a colonoscopy tomorrow, gastroenterology saw him yesterday Total clinical time spent by myself addressing the patient's medical issues, reviewing all of his data, and collaborating with the patient's care team: 35 minutes Charges/Coding Visit Charges Inpatient E&M: 16087 Subs Hosp L2
--- NOTE | 2023-11-01 17:11 | PN.GI_ITS ---
Subjective Subjective Patient has been on a clear liquid diet and has been still having some lower GI bleeding. He says his legs are still very swollen. Objective Data Objective Data Vital Signs: Vital Signs Temp Pulse Resp BP Pulse Ox O2 Del Method O2 Flow Rate 97.4 F L 55 L 20 H 143/69 H 96 Room Air 2 11/01/23 14:31 11/01/23 14:31 11/01/23 14:31 11/01/23 14:31 11/01/23 14:31 11/01/23 14:41 10/31/23 03:00 Oxygen Flow Rate (L/min) 2 Oxygen Delivery Method Room Air Weight: 352 lb 15.361 oz Body Mass Index (BMI) 45.3 Intake & Output: Intake and Output for Last 24 Hours 10/30/23 10/31/23 11/01/23 23:59 23:59 23:59 Intake Total 1290 / 1290 1320 / 1320 Output Total 500 / 500 2050 / 2050 850 / 850 Balance 790 / 790 -730 / -730 -850 / -850 Lab / Micro Data 10/31/23 18:17 11/01/23 06:19 Labs: Laboratory Results - last 24 hr 10/31/23 18:17: Hgb 9.1 L, Hct 30.9 L 10/31/23 23:44: POC Glucose 106 11/01/23 06:14: POC Glucose 93 11/01/23 06:19: Sodium 138, Potassium 4.0, Chloride 102, Carbon Dioxide 33.0 H, Anion Gap 3 L, BUN 28 H, Creatinine 1.25, Estim Creat Clear Calc 90.69, Est GFR (MDRD) Af Amer 74, Est GFR (MDRD) Non-Af 61, BUN/Creatinine Ratio 22.4 H, Glucose 91, Calcium 9.0 11/01/23 09:47: POC Glucose 144 H 11/01/23 12:33: POC Glucose 208 H Physical Exam Narrative alert, oriented x3 and no apparent distress Constitutional Narrative: Patient is morbidly obese General Appearance: cooperative, well kempt and well developed Orientation / Consciousness: awake, oriented to person, oriented to place and oriented to time HEENT normocephalic and moist oral mucous membranes Eyes PERRL, EOMs intact bilaterally and conjunctivae normal Neck supple, no JVD and thyroid normal General: trachea midline Resp normal respiratory effort, no retractions, no use of accessory muscles and clear to auscultation bilaterally Auscultation: Negative for rales, rhonchi or wheezes Cardio regular rate, regular rhythm, S1 normal heart sound, S2 normal heart sound, no murmurs, no rub and no gallops GI normal to inspection, nondistended, normoactive bowel sounds, soft to palpation, non-tender and non-distended Extremity Extremity Narrative: Generalized edema is noted over both lower legs worse on the right, there is redness noted with the edema on the right lower leg, there are 3 eschars noted over the lateral aspect of the right lower leg, no drainage is noted from these areas Skin Skin Narrative: There are 3 eschars noted over the lateral aspect of the right lower leg Neuro oriented x3, CN's II-XII intact bilaterally, no focal motor deficits and no sensory deficits noted Sensorium / Orientation: awake and alert Speech: speech normal Psych affect normal Assessment & Plan Assessment/Plan (1) Impaired mobility and ADLs: PLAN: Plan Patient is a 68-year-old male who presented [facility] ED on 10/28/2023 with failure to thrive. 1. Adult failure to thrive; Recent history of mechanical fall with RLE hematoma and mild head laceration; 2. Chronic RLE DVT ? Recent LE duplex ultrasound from outside hospital on 10/21 showed chronic DVT in right proximal femoral vein and right popliteal vein. His Eliquis on hold due to anemia and GI bleeding in the hospital. 3. Anemia and lower GI bleed ? Chronic normocytic anemia: Hemoglobin 8.7 on admit, baseline hemoglobin 8-9. Stable. ? He has been having multiple episodes of lower GI bleeding. He will need to undergo 2023-patient has started his prep. He has not had any bowel movements as of yet. He denies abdominal pain but still is having lower GI bleeding. Plan is for upper and lower endoscopy tomorrow. Charges/Coding Visit Charges Inpatient E&M: 88534 Subs Hosp L2
[2023-11-01 17:29] LABS: Bedside Glucose 106 mg/dL (74-106)
[2023-11-01] MEDS: Polyethylene Glycol 3350 BOWEL PREP PO (17:59)
[2023-11-01 19:59] VITALS: PULSE 70; RESP 18
[2023-11-01 22:55] VITALS: BP 158/75; PULSE 61; RESP 20; TEMP 36.4; O2SAT 96
--- NOTE | 2023-11-01 23:20 | CPS ---
Patient offered CPAP tonight but does not want to wear it because he has been up and down to the bathroom all night.
[2023-11-01] MEDS: MELATONIN 3 MG TABLET PO (23:37)
[2023-11-01] MEDS: 0.9% Saline Lock 10 ML Syringe IV (23:54)
[2023-11-02] VITALS (12 sets, daily range): BP systolic 121–136; BP diastolic 65–81; PULSE 53–71; RESP 16–20; TEMP 36.4–37.1; O2SAT 92–98; BMI 45.2
--- NOTE | 2023-11-02 | COLBX_PTH ---
PATIENT: SHANELLE HUNTER LOC: MS3 U#:[id number] AGE/SX: 68/M ROOM: PR310 RE10/28/[address]: Dr. Louie Howard DO : 1955 BED: 1 DIS: 11/03/2023 SPEC #: [id number] RECD: 11/03/23 10:20 STATUS: LAUREN REJessika #: [id number] MARQUIS: 11/02/23 00:[address]: Regan Kelly DEPT: SURGICAL PATHOLOGY RECD BY: Danie Pérez ENTERED: 11/03/23 10:20 SP TYPE: COLON BX OTHR DR: DO Dr. Sommer Messina MD Dr. Mark Tereletsky, DO Ryan Baltes, CINDER [employer]ER-C Tissues: A - Duodenum, NOS B - Ascending colon C - Sigmoid colon biopsy Procedures: Surgery Specimen Level IV Comments: @ Ordering doctor for SUIV edited from to @ by PADMA at 11/03/23 1525 @ Submitting doctor edited from to @ by PADMA at 11/03/23 1525 HEADER OPERATION: Colonoscopy with polypectomy, bipolar electrohemostasis PRE-OP DIAGNOSIS: GI bleed TISSUE SUBMITTED: A- Duodenum biopsy, B- Ascending colon polyp, C- Sigmoid polyp MICROSCOPIC DIAGNOSIS A. Duodenum, biopsy: A fragment of duodenum mucosa with Curt gland hyperplasia. B. Ascending colon polyp, polypectomy: Fragments of tubular adenoma. Fragments of fecal material. C. Sigmoid polyp, polypectomy: Fragments of tubular adenoma. Fragments of hyperplastic polyp. Fragments of fecal material. JAY/ 11/04/23 MICROSCOPIC DESCRIPTION Slides are reviewed. GROSS DESCRIPTION A. Received in fixative is one container labeled with the patient's name and designated Duodenum biopsy. The specimen consists of one irregular fragment of light vincent soft tissue that measures 0.4 x 0.3 x 0.1 cm. The specimen is totally submitted in one cassette. B. Received in fixative is one container labeled with the patient's name and designated Ascending colon polyp. The specimen consists of multiple irregular fragments mixed fecal material soft tissue that in aggregate measure 2.5 x 1.0 x 0.3 cm. The specimen is totally submitted in one cassette. C. Received in fixative is one container labeled with the patient's name and designated Sigmoid polyp. The specimen consists of multiple irregular fragments of light vincent soft tissue that in aggregate measure 2.0 x 0.5 x 0.1 cm. The specimen is totally submitted in one cassette. JAY/ 11/03/2023 TC:1 CPT:88179u6
[2023-11-02 00:30] LABS: Bedside Glucose 132 mg/dL (74-106)
--- NOTE | 2023-11-02 03:40 | EKG12_ITS ---
Test Reason : CP Blood Pressure : / mmHG Vent. Rate : 060 BPM Atrial Rate : 060 BPM P-R Int : 238 ms QRS Dur : 106 ms QT Int : 430 ms P-R-T Axes : 035 063 024 degrees QTc Int : 430 ms Sinus rhythm with 1st degree A-V block Nonspecific T wave abnormality Abnormal ECG When compared with ECG of 01-NOV-2010 10:50, SC interval has increased ST now depressed in Inferior leads Nonspecific T wave abnormality now evident in Inferior leads Confirmed by IVIS KWAN, RAJNI ([id number]), order editor STAS QUIÑONES ([id number]) on 11/08/2023 1:17:23 PM Referred By: KASI/KASI Confirmed By:ROBBY LANGSTON MD
[2023-11-02 06:36] LABS: Anion Gap 4 (5-15); BUN 23 mg/dL (7-18); BUN/Creat Ratio 19.8 RATIO (10-20); Calcium,Total 8.5 mg/dL (8.5-10.1); Chloride 99 mmol/L (98-107); Creatinine, Serum 1.16 mg/dL (0.70-1.30); EST Glomerular Filtration Rate 66 mL/min (>60); Est Glom Filt Rate - Afr Amer 80 mL/min (>60); Estimated Creatinine Clearance 97.62 ml/min; Glucose 94 mg/dL (74-106); Potassium 3.7 mmol/L (3.5-5.1); Sodium Level 137 mmol/L (136-145)
[2023-11-02] MEDS: Nystatin Powder 15gm Bottle 1 APPLIC TOPICAL ×2 (06:52→21:58)
[2023-11-02] MEDS: Gabapentin 300 MG Capsule PO ×2 (06:53→22:06)
[2023-11-02 07:12] LABS: Hemoglobin 9.4 g/dL (13.0-16.5); Red Blood Count 3.59 M/mm3 (4.6-6.2); White Blood Count 5.1 K/mm3 (4.4-11.0)
[2023-11-02 07:13] LABS: Basophil% 0.6 % (0-1); Eosinophils% 4.1 % (0-5); Hematocrit 32.6 % (40-54); Lymphocyte # 0.89 X10^3/ul (0.83-4.51); Lymphocyte % 17.3 % (19-41); Mean Corp Hgb Conc 28.8 g/dL (32-36); Mean Corpuscular Hgb 26.2 pg (27.0-32.0); Mean Corpuscular Volume 90.8 fL (80-94); Mean Platelet Vol. 11.3 fl (6.2-12.0); Monocyte% 13.4 % (0-10); Neutrophil % 64.2 % (47-70); Platelet Count 248 K/mm3 (150-450); RBC Distribution Width SD 60.9 fl (35.1-43.9)
[2023-11-02 07:14] LABS: Basophil# 0.03 X10^3/uL; Eosinophil# 0.21 X10^3/uL; Monocyte# 0.69 X10^3/uL
[2023-11-02] MEDS: Budesonide Respules 0.5 MG/2 ML AMPUL.NEB. INHALATION ×2 (07:28→20:54)
[2023-11-02] MEDS: Menthol/Lanolin/Calamine/Znox 113 GM Tube 1 APPLIC TOPICAL ×2 (08:28→21:57)
[2023-11-02] MEDS: 0.9% Saline Lock 10 ML Syringe IV ×2 (08:28→11:31)
[2023-11-02] MEDS: Furosemide 40 MG/4 ML Vial IV (08:29)
--- NOTE | 2023-11-02 09:29 | CASEMGMT ---
Social Work [employer] called today and stated they will give precert for pt to go to [facility] today. SW let Clark at [facility] know, and let physician know. SW let Clark at [facility] know to submit PT/OT evals when pt arrives there for [employer] to give further authorization for stay there. RADHA will continue to follow. EMANUEL Duque
[2023-11-02 09:35] LABS: Hemoglobin A1c 5.2 % (3.8-5.6)
--- NOTE | 2023-11-02 09:45 | CASEMGMT ---
Social Work- [facility] [employer] ([phone]) called to provide authorization number for [facility]. Auth #: [id number] PASRR completed and printed for pt chart. Plan: Discharge to [facility], LEATHA Noguera
[2023-11-02] MEDS: Dextrose 50%-Water 25 GM/50 ML DISP.SYRIN IV (11:31)
[2023-11-02 11:46] LABS: Bedside Glucose 87 mg/dL (74-106)
[2023-11-02 12:23] LABS: Bedside Glucose 116 mg/dL (74-106)
[2023-11-02] MEDS: Lactated Ringers 1,000 ML 15 ML IV (14:34)
--- NOTE | 2023-11-02 14:59 | CASEMGMT ---
Social Work- SW updated son on [facility] precert approval and advised that when medically ready for d/c, pt son would be updated with a time for transfer of care. Plan: [facility] when medically ready/upon d/c LEATHA Alonso
--- NOTE | 2023-11-02 16:40 | OP.CCLET_ITS ---
11/02/2023 Ambrosio Toscano Re : Upper GI endoscopy procedure for Jadon Alvarez Dear Delmis This procedure was performed on Thursday, November 02, 2023. My impressions and recommendations are as follows: Impressions : - Normal esophagus. - Hiatal hernia. - No gross lesions in the entire stomach. - Duodenal ulcer with pigmented material. Treated with a heater probe. - Non-bleeding duodenal ulcers with no stigmata of bleeding. Biopsied. Recommendations : - [facility]. - Resume regular diet. - Continue present medications. - Await pathology results. - Repeat upper endoscopy in 4 months for surveillance. My findings are described in the full procedure note, which is enclosed. If I can be of further assistance, please feel free to contact me at . Sincerely, Regan Kelly, 11/02/2023 4:40:16 PM This report has been signed electronically.
--- NOTE | 2023-11-02 16:40 | OP.EGD_ITS ---
Patient Name: Jadon Alvarez Procedure Date: 11/02/2023 3:40 PM Date of : 1955 Age: 68 Procedure: Upper GI endoscopy Indications: Hematochezia, Melena Providers: Regan Kelly DO Medicines: Monitored Anesthesia Care Patient Profile: This is a 68 year old male. Refer to note in patient chart for documentation of history and physical. Patient has symptoms. Complications: No immediate complications. Procedure: Pre-Anesthesia Assessment: - Prior to the procedure, a History and Physical was performed, and patient medications and allergies were reviewed. The patient is competent. The risks and benefits of the procedure and the sedation options and risks were discussed with the patient. All questions were answered and informed consent was obtained. Patient identification and proposed procedure were verified by the physician in the pre-procedure area. Mental Status Examination: alert and oriented. Airway Examination: normal oropharyngeal airway and neck mobility. Respiratory Examination: clear to auscultation. CV Examination: normal. Prophylactic Antibiotics: The patient does not require prophylactic antibiotics. Prior Anticoagulants: The patient has taken no anticoagulant or antiplatelet agents. ASA Grade Assessment: II - A patient with mild systemic disease. After reviewing the risks and benefits, the patient was deemed in satisfactory condition to undergo the procedure. The anesthesia plan was to use monitored anesthesia care (MAC). Immediately prior to administration of medications, the patient was re-assessed for adequacy to receive sedatives. The heart rate, respiratory rate, oxygen saturations, blood pressure, adequacy of pulmonary ventilation, and response to care were monitored throughout the procedure. The physical status of the patient was re-assessed after the procedure. After obtaining informed consent, the endoscope was passed under direct vision. Throughout the procedure, the patient's blood pressure, pulse, and oxygen saturations were monitored continuously. The pediatric colonoscope was introduced through the mouth, and advanced to the second part of duodenum. The upper GI endoscopy was accomplished without difficulty. The patient tolerated the procedure well. Scope In: 3:54:31 PM Scope Out: 3:56:35 PM Total Procedure Duration Time 0 hours 2 minutes 4 seconds Findings: The examined esophagus was normal. A hiatal hernia was present. No gross lesions were noted in the entire examined stomach. One cratered duodenal ulcer with pigmented material was found in the duodenal bulb. The lesion was 6 mm in largest dimension. Coagulation for bleeding prevention using heater probe was successful. Estimated blood loss was minimal. Two non-bleeding linear duodenal ulcers with no stigmata of bleeding were found in the duodenal bulb and in the first portion of the duodenum. The largest lesion was 5 mm in largest dimension. Biopsies were taken with a cold forceps for histology. Verification of patient identification for the specimen was done. Estimated blood loss was minimal. A single 8 mm sessile polyp with bleeding was found in the duodenal bulb. The polyp was removed with a hot snare. Resection and retrieval were complete. Verification of patient identification for the specimen was done. Estimated blood loss was minimal. Impression: - Normal esophagus. - Hiatal hernia. - No gross lesions in the entire stomach. - Duodenal ulcer with pigmented material. Treated with a heater probe. - Non-bleeding duodenal ulcers with no stigmata of bleeding. Biopsied. Recommendation: - Return patient to [facility] for [facility] care. - Resume regular diet. - Continue present medications. - Await pathology results. - Repeat upper endoscopy in 4 months for surveillance. Procedure Code(s): --- Professional --- 53952, 59, Esophagogastroduodenoscopy, flexible, transoral; with control of bleeding, any method 53013, 51, Esophagogastroduodenoscopy, flexible, transoral; with removal of tumor(s), polyp(s), or other lesion(s) by snare technique 62180, 59, Esophagogastroduodenoscopy, flexible, transoral; with biopsy, single or multiple CPT copyright 2021 [employer]. All rights reserved. The codes documented in this report are preliminary and upon paintless dent repair technician review may be revised to meet current compliance requirements. Regan Kelly DO 11/02/2023 4:40:16 PM This report has been signed electronically. Number of Addenda: 0 Note Initiated On: 11/02/2023 3:40 PM
--- NOTE | 2023-11-02 16:45 | OP.COLON_ITS ---
Patient Name: Jadon Alvarez Procedure Date: 11/02/2023 3:56 PM Date of : 1955 Age: 68 Procedure: Colonoscopy Indications: Hematochezia Providers: Regan Kelly DO Medicines: Monitored Anesthesia Care Patient Profile: This is a 68 year old male. Refer to note in patient chart for documentation of history and physical. Patient has symptoms. Last Colonoscopy: date unknown. Unable to locate last colonoscopy report. Complications: No immediate complications. Procedure: Pre-Anesthesia Assessment: - Prior to the procedure, a History and Physical was performed, and patient medications and allergies were reviewed. The patient is competent. The risks and benefits of the procedure and the sedation options and risks were discussed with the patient. All questions were answered and informed consent was obtained. Patient identification and proposed procedure were verified by the physician in the pre-procedure area. Mental Status Examination: alert and oriented. Airway Examination: normal oropharyngeal airway and neck mobility. Respiratory Examination: clear to auscultation. CV Examination: normal. Prophylactic Antibiotics: The patient does not require prophylactic antibiotics. Prior Anticoagulants: The patient has taken no anticoagulant or antiplatelet agents. ASA Grade Assessment: II - A patient with mild systemic disease. After reviewing the risks and benefits, the patient was deemed in satisfactory condition to undergo the procedure. The anesthesia plan was to use monitored anesthesia care (MAC). Immediately prior to administration of medications, the patient was re-assessed for adequacy to receive sedatives. The heart rate, respiratory rate, oxygen saturations, blood pressure, adequacy of pulmonary ventilation, and response to care were monitored throughout the procedure. The physical status of the patient was re-assessed after the procedure. After I obtained informed consent, the scope was passed under direct vision. Throughout the procedure, the patient's blood pressure, pulse, and oxygen saturations were monitored continuously. The pediatric colonoscope was introduced through the anus and advanced to the terminal ileum. The colonoscopy was performed without difficulty. The patient tolerated the procedure well. The quality of the bowel preparation was fair. The ileocecal valve, appendiceal orifice, and rectum were photographed. Scope In: 3:58:52 PM Scope Withdrawal Time 0 hours 16 minutes 5 seconds Scope Out: 4:32:43 PM Total Procedure Duration Time 0 hours 33 minutes 51 seconds Findings: An anal fissure was found on perianal exam. Non-bleeding internal hemorrhoids were found during retroflexion. The hemorrhoids were mild, small and Grade I (internal hemorrhoids that do not prolapse). A 5 mm anal fissure was found in the anal canal. Coagulation for hemostasis using argon plasma at 0.3 liters/minute and 20 de luna was successful. Estimated blood loss was minimal. Multiple small-mouthed diverticula were found in the recto-sigmoid colon and sigmoid colon. Three sessile polyps were found in the sigmoid colon and ascending colon. The polyps were 1 to 2 mm in size. These polyps were removed with a hot snare. Resection and retrieval were complete. To prevent bleeding post-intervention, one hemostatic clip was successfully placed. Clip php programmer: [employer]. There was no bleeding at the end of the procedure. A single (solitary) six mm ulcer was found at the hepatic flexure. Oozing was present. Stigmata of recent bleeding were present. Coagulation for hemostasis using heater probe was successful. Estimated blood loss was minimal. Impression: - Preparation of the colon was fair. - Anal fissure found on perianal exam. - Non-bleeding internal hemorrhoids. - Anal fissure. Treated with argon plasma coagulation (APC). - Diverticulosis in the recto-sigmoid colon and in the sigmoid colon. - Three 1 to 2 mm polyps in the sigmoid colon and in the ascending colon, removed with a hot snare. Resected and retrieved. Clip was placed. Clip php programmer: [employer]. - A single (solitary) ulcer at the hepatic flexure. Treated with a heater probe. Recommendation: - Discharge patient to home. - Resume regular diet. - Continue present medications. - Await pathology results. - Repeat colonoscopy in 1 year for surveillance. Procedure Code(s): --- Professional --- 22691, 59, Colonoscopy, flexible; with control of bleeding, any method 32261, Colonoscopy, flexible; with removal of tumor(s), polyp(s), or other lesion(s) by snare technique CPT copyright 2021 [employer]. All rights reserved. The codes documented in this report are preliminary and upon preparation supervisor canning review may be revised to meet current compliance requirements. Regan Kelly DO 11/02/2023 4:44:37 PM This report has been signed electronically. Number of Addenda: 0 Note Initiated On: 11/02/2023 3:56 PM
--- NOTE | 2023-11-02 16:45 | OP.CCLET_ITS ---
11/02/2023 Ambrosio Toscano Re : Colonoscopy procedure for Jadon Alvarez Dear Delmis This procedure was performed on Thursday, November 02, 2023. My impressions and recommendations are as follows: Impressions : - Preparation of the colon was fair. - Anal fissure found on perianal exam. - Non-bleeding internal hemorrhoids. - Anal fissure. Treated with argon plasma coagulation (APC). - Diverticulosis in the recto-sigmoid colon and in the sigmoid colon. - Three 1 to 2 mm polyps in the sigmoid colon and in the ascending colon, removed with a hot snare. Resected and retrieved. Clip was placed. Clip educational specialist: Telller. - A single (solitary) ulcer at the hepatic flexure. Treated with a heater probe. Recommendations : - Discharge patient to home. - Resume regular diet. - Continue present medications. - Await pathology results. - Repeat colonoscopy in 1 year for surveillance. My findings are described in the full procedure note, which is enclosed. If I can be of further assistance, please feel free to contact me at . Sincerely, Regan Kelly, 11/02/2023 4:44:37 PM This report has been signed electronically.
[2023-11-02] MEDS: Juven (unflavored) Packet 1 PACKET PO (17:28)
[2023-11-02] MEDS: Potassium Chloride Oral Tablet 20 MEQ PO (17:28)
[2023-11-02 17:50] LABS: Bedside Glucose 89 mg/dL (74-106)
--- NOTE | 2023-11-02 18:34 | PCM.PN.HOSP ---
Reason for Visit Reason for Visit: Diagnoses Other reduced mobility (10/28/23) Other specified health status (10/28/23) Subjective Subjective Patient underwent colonoscopy today which revealed anal fissure and nonbleeding internal hemorrhoids. Diverticulosis was also noted in the rectosigmoid colon and in the sigmoid colon and there were 3 small polyps removed in the sigmoid colon. In addition, there was a solitary ulcer at the hepatic flexure, this was treated with a heater probe. Patient has been accepted to [facility] facility, he will be reevaluated tomorrow morning for discharge there. Objective Data Objective Data Vital Signs: Vital Signs Temp Pulse Resp BP Pulse Ox O2 Del Method O2 Flow Rate 97.5 F L 60 18 121/72 H 93 Room Air 2 11/02/23 17:24 11/02/23 17:24 11/02/23 17:24 11/02/23 17:24 11/02/23 17:24 11/02/23 17:24 11/02/23 16:45 Oxygen Flow Rate (L/min) 2 Oxygen Delivery Method Room Air Weight: 159.8 kg Body Mass Index (BMI) 45.2 Intake & Output: Intake and Output for Last 24 Hours 10/31/23 11/01/23 11/02/23 23:59 23:59 23:59 Intake Total 1320 / 1320 Output Total 2049 / 2049 850 / 850 450 / 450 Balance -730 / -730 -850 / -850 -450 / -450 Lab / Micro Data 11/02/23 06:13 11/02/23 06:13 Labs: Laboratory Results - last 24 hr 11/01/23 23:33: POC Glucose 132 H 11/02/23 06:13: WBC 5.1, RBC 3.59 L, Hgb 9.4 L, Hct 32.6 L, MCV 90.8, MCH 26.2 L, MCHC 28.8 L, RDW Std Deviation 60.9 H, RDW Coeff of Carlito 19.0 H, Plt Count 248, MPV 11.3, Immature Gran % (Auto) 0.400, Neut % (Auto) 64.2, Lymph % (Auto) 17.3 L, [place] % (Auto) 13.4 H, Eos % (Auto) 4.1, Baso % (Auto) 0.6, Absolute Neuts (auto) Not Reportable, Sodium 137, Potassium 3.7, Chloride 99, Carbon Dioxide 34.0 H, Anion Gap 4 L, BUN 23 H, Creatinine 1.16, Estim Creat Clear Calc 97.62, Est GFR (MDRD) Af Amer 80, Est GFR (MDRD) Non-Af 66, BUN/Creatinine Ratio 19.8, Glucose 94, Hemoglobin A1c 5.2, Calcium 8.5 11/02/23 11:22: POC Glucose 87 11/02/23 12:05: POC Glucose 116 H 11/02/23 17:27: POC Glucose 89 Physical Exam Narrative alert, oriented x3 and no apparent distress Constitutional Narrative: Patient is morbidly obese General Appearance: cooperative, well kempt and well developed Orientation / Consciousness: awake, oriented to person, oriented to place and oriented to time HEENT normocephalic and moist oral mucous membranes Eyes PERRL, EOMs intact bilaterally and conjunctivae normal Neck supple, no JVD and thyroid normal General: trachea midline Resp normal respiratory effort, no retractions, no use of accessory muscles and clear to auscultation bilaterally Auscultation: Negative for rales, rhonchi or wheezes Cardio regular rate, regular rhythm, S1 normal heart sound, S2 normal heart sound, no murmurs, no rub and no gallops GI normal to inspection, nondistended, normoactive bowel sounds, soft to palpation, non-tender and non-distended Extremity Extremity Narrative: Generalized edema is noted over both lower legs worse on the right, there is redness noted with the edema on the right lower leg, there are 3 eschars noted over the lateral aspect of the right lower leg, no drainage is noted from these areas Skin Skin Narrative: There are 3 eschars noted over the lateral aspect of the right lower leg Neuro oriented x3, CN's II-XII intact bilaterally, no focal motor deficits and no sensory deficits noted Sensorium / Orientation: awake and alert Speech: speech normal Psych affect normal Assessment & Plan Assessment/Plan (1) Impaired mobility and ADLs: PLAN: Plan 1. Acute debility secondary to multiple medical problems and morbid obesity-PT and OT will continue to see the patient, he will need temporary placement in [facility] for rehab services #2 bilateral lower extremity edema with lymphedematous changes of the skin-patient will remain on IV Lasix #3 right lower leg wounds-eschars present-wound care nurse is seeing the patient #4 paroxysmal atrial fibs and flutter-patient appears to be in sinus rhythm today on my examination, patient's Eliquis is being held due to concerns of GI bleeding #5 type 2 diabetes-patient's blood sugars will be monitored, sliding scale insulin will be used as needed #6 essential hypertension-patient will remain on his present medications, they will be adjusted as needed #7 iron deficiency anemia-possibly secondary to chronic gastrointestinal bleeding from hemorrhoids and fissures #8 Acute bright red rectal bleeding from rectal fissure, internal hemorrhoids, and colon ulceration-H&H will be obtained in the morning Total clinical time spent by myself addressing the patient's medical issues, reviewing all of his data, and collaborating with the patient's care team: 35 minutes Charges/Coding Visit Charges Inpatient E&M: 23897 Subs Hosp L2
[2023-11-02] MEDS: MELATONIN 3 MG TABLET PO (21:58)
[2023-11-02] MEDS: Carvedilol 25 MG Tablet PO (21:58)
[2023-11-02] MEDS: Acetaminophen 325 MG Tablet 650 MG PO (22:06)
[2023-11-02 22:29] LABS: Bedside Glucose 161 mg/dL (74-106)
[2023-11-03 01:25] VITALS: PULSE 60; RESP 18; O2SAT 98
[2023-11-03 06:10] LABS: Bedside Glucose 104 mg/dL (74-106)
[2023-11-03] MEDS: Nystatin Powder 15gm Bottle 1 APPLIC TOPICAL ×2 (06:46→21:28)
[2023-11-03] MEDS: Gabapentin 300 MG Capsule PO ×3 (06:46→21:29)
[2023-11-03 06:58] VITALS: BP 120/61; PULSE 57; RESP 18; TEMP 36.7; O2SAT 91
[2023-11-03 07:28] LABS: Hematocrit 32.4 % (40-54); Hemoglobin 9.3 g/dL (13.0-16.5)
[2023-11-03 08:00] LABS: Anion Gap 2 (5-15); BUN 22 mg/dL (7-18); BUN/Creat Ratio 16.9 RATIO (10-20); Calcium,Total 9.3 mg/dL (8.5-10.1); Chloride 99 mmol/L (98-107); EST Glomerular Filtration Rate 58 mL/min (>60); Est Glom Filt Rate - Afr Amer 71 mL/min (>60); Estimated Creatinine Clearance 87.11 ml/min; Glucose 110 mg/dL (74-106); Potassium 4.1 mmol/L (3.5-5.1); Sodium Level 137 mmol/L (136-145)
[2023-11-03 08:45] VITALS: BP 113/71; PULSE 52; RESP 18; TEMP 36.6; O2SAT 94
[2023-11-03] MEDS: Ferrous Sulfate 325 MG Tablet PO (08:56)
[2023-11-03] MEDS: Furosemide 40 MG/4 ML Vial IV ×2 (08:56→15:46)
[2023-11-03] MEDS: Carvedilol 25 MG Tablet PO ×2 (08:57→21:28)
[2023-11-03] MEDS: Atorvastatin Calcium 20 MG Tablet PO (08:57)
[2023-11-03] MEDS: Juven (unflavored) Packet 1 PACKET PO ×2 (08:57→16:35)
[2023-11-03] MEDS: Potassium Chloride Oral Tablet 20 MEQ PO ×2 (08:57→16:36)
[2023-11-03] MEDS: amLODIPine 5 MG Tablet PO (08:57)
[2023-11-03] MEDS: Aspirin E.C. 81 MG Tablet PO (08:57)
[2023-11-03] MEDS: Menthol/Lanolin/Calamine/Znox 113 GM Tube 1 APPLIC TOPICAL ×2 (08:58→21:27)
[2023-11-03] MEDS: 0.9% Saline Lock 10 ML Syringe IV ×2 (08:59→15:46)
[2023-11-03 10:45] LABS: Bedside Glucose 217 mg/dL (74-106)
[2023-11-03] MEDS: Insulin Lispro 100 UNIT/ML INSULN.PEN SC ×2 (11:22→16:35)
[2023-11-03 11:59] LABS: Bedside Glucose 206 mg/dL (74-106)
[2023-11-03 14:45] VITALS: BP 130/82; PULSE 55; RESP 18; TEMP 37; O2SAT 95
--- NOTE | 2023-11-03 15:02 | CHAPLAIN ---
Type of Pastoral Visit ___ Initial Visit _x__ Follow-up Visit ___ On-call Visit ___ General Patient Visit ___ Spiritual Assessment ___ Family Conference ___ Bereavement ___ Rapid Response ___ Code Blue ___ Other (describe below) Pastoral Care Referral From _x__ Patient ___ Family ___ Nurse ___ Physician ___ Corn Shredder ___ Stereo Equipment Salesperson ___ Other (describe below) Sacrament/Intervention _x__ Active listening ___ Anointing ___ Scientologist ___ Bereavement ___ Communion _x__ Aziza exploration ___ ___ Life review _x__ Prayer ___ Reconciliation ___ Sacrament of Sick _x__ Supportive presence ___ Wedding ___ Other (describe below) Pastoral Comments patient is very welcoming of spiritual care support; pt is concerned about going to a SNF today but states he will try to be hopeful; pt's in a SNF and there are too many negative thoughts for him about this; pt talks about his aziza and how he believes God has sent him messengers; pt welcomes the visits and prayers of this cafe operator and states how much it has meant to him to have someone to talk with and have prayer; prayer again given with supportive words of hope
--- NOTE | 2023-11-03 16:25 | TREXTCAR_ITS ---
Diet Diet Order/Speech Therapy: 11/03/23 14:25 Diet: Cardiac: Calorie-Controlled Food consistency:: Regular Liquid Consistency:: Regular/Thin Dietary Modifications:: Consistent Carbohydrate Sodium Restricted Is pt able to select menu?: No Diet Comments: pt wants nonselect menu - no coffee or cottage cheese on meal trays How many daily calories?: 1999 calorie Routine Orders/Code Status Routine Lab Work: BMP (on 11/05/23) and - (Fingerstick blood sugars AC nightly, Humalog subcu per sliding scale: 200-250: 5 units, 251-300: 8 units, 300-350: 12 units) Code Status: DNRCC-A (no intubation) Wound(s) rt leg: Wound Type: cluster of nonhealing wound with black eschar Dressing Change: Adaptic Therapies Weight Bearing: Full weight bearing Physical Therapy: Eval and Treat Occupational Therapy: Eval and Treat Problem/Diagnosis (1) Impaired mobility and ADLs: Status: Acute Code(s): Z74.09 - Other reduced mobility; Z78.9 - Other specified health status Plan 1. Acute debility secondary to multiple medical problems and morbid obesity-PT and OT will continue to see the patient, he will need [facility] #2 bilateral lower extremity edema with lymphedematous changes of the skin- patient will remain on IV Lasix #3 right lower leg wounds-eschars present-wound care nurse is seeing the patient #4 paroxysmal atrial fibs and flutter-patient appears to be in sinus rhythm today on my examination, patient's Eliquis is being held due to concerns of GI bleeding #5 type 2 diabetes-patient's blood sugars will be monitored, sliding scale insulin will be used as needed #6 essential hypertension-patient will remain on his present medications, they will be adjusted as needed #7 iron deficiency anemia-possibly secondary to chronic gastrointestinal bleeding from hemorrhoids and fissures #8 Acute bright red rectal bleeding from rectal fissure, internal hemorrhoids, and colon ulceration Total clinical time spent by myself addressing the patient's medical issues, reviewing all of his data, and collaborating with the patient's care team: 35 minutes Allergies/Procedures Done in Hospital Allergies ibuprofen [From Nuprin] Allergy (Verified 10/28/23 13:13) Unknown Procedures: Colonoscopy Type of Care/Length of Stay Estimated LOS: Convalescent Care Less Than 30 days Type of Care Needed: Skilled Rehab Potential: Fair Prognosis: Fair Additional Orders/Day of Discharge H&P will serve as current which was dated: 10/28/23 Day of Discharge: 11/03/23 Dietary and Speech Recommendations Dietitian Recommendations/Changes: Will change diet to 2000 calorie/consistent carbohydrate; Cardiac/sodium-restricted---nonselect diet per pt request. Will continue Santhosh bid at [facility] to support skin healing. Fluid restriction as needed per physician. Discharge Plan Admission Admit Date/Time: 10/28/23 16:54 Primary Reason for Your Visit: Debility, lower extremity edema, lymphedema Attending Provider: Louie Howard Primary Care Provider: Hiren Benites NP Consulting Providers: Louie Howard; [place] Discharge Orders/Prescriptions Prescriptions: New insulin glargine-yfgn 100 unit/mL (3 mL) Insulin Pen 40 unit subcut DAILY Qty: 0 0RF acetaminophen 325 mg Tablet 650 mg PO Q4H PRN PRN (Reason: Fever, pain 1-1010) Qty: 0 0RF albuterol sulfate 2.5 mg /3 mL (0.083 %) Solution For Nebulization 2.5 mg inhalation Q2H PRN PRN (Reason: Dyspnea, wheezing) Qty: 0 0RF budesonide 0.5 mg/2 mL Suspension For Nebulization 0.5 mg inhalation BID.RT Qty: 0 0RF Santhosh (with collagen) 7-7-1.5 gram Powder In Packet 1 packet PO BIDCM Qty: 0 0RF menthol-zinc oxide [Calmoseptine] 0.44-20.6 % Ointment 1 applic topical BID Qty: 0 0RF Protocol: *Topical Application Instructions APPLICATION INSTRUCTIONS: apply to affected region potassium chloride 20 mEq Tablet,Er Particles/Crystals 20 meq PO BIDCM Qty: 0 0RF nystatin [Nyamyc] 100,000 unit/gram Powder 1 applic topical TID Qty: 0 0RF Protocol: *Topical Application Instructions APPLICATION INSTRUCTIONS: to affected regions Continued carvedilol 25 MG tablet 25 mg PO BID aspirin 81 MG tablet,delayed release (DR/EC) 81 mg PO DAILY ascorbic acid (vitamin C) 250 MG tablet 250 mg PO DAILY atorvastatin 20 mg tablet 20 mg PO DAILY amlodipine 5 mg tablet 5 mg PO DAILY ferrous sulfate [Feosol] 325 mg (65 mg iron) tablet 325 mg PO DAILY gabapentin 300 mg capsule 300 mg PO TID melatonin 3 mg tablet 3 mg PO QHS metoprolol tartrate 25 mg tablet 12.5 mg PO BID polyethylene glycol 3350 [Miralax] 17 gram/dose powder 17 g PO BID Held Eliquis 5 mg tablet 5 mg PO BID Hold Instructions: Resume on 11/17/23. Discontinued doxycycline hyclate 100 mg capsule 100 mg PO BID oxycodone-acetaminophen 5-325 mg tablet 1 tab PO Q6H PRN (Reason: pain) bumetanide 1 mg tablet 0.5 mg PO BID budesonide-formoterol [Symbicort] 160-4.5 mcg/actuation HFA aerosol inhaler 2 puff inhalation DAILY diltiazem HCl 180 mg capsule,extended release 24hr 180 mg PO DAILY furosemide 40 mg tablet 40 mg PO DAILY insulin glargine 100 unit/mL (3 mL) insulin pen 75 unit subcut DAILY insulin lispro 100 unit/mL insulin pen See Rx Instructions subcut TID Patient Comments: DENISE BUCHANAN DOES NOT HAVE SLIDING SCALE DOSE ON MED LIST Rx Instructions: GIVE 0-5 UNITS subcutaneously three times a day; Mounjaro 5 mg/0.5 mL pen injector 5 mg subcut QWEEK Referrals / Follow Up: Hiren Benites NP, WORKFLOW DEVELOPER-C [Primary Care Provider] - Disposition Disposition (needs filled in before D/C Order can be placed): Shelter Facility
--- NOTE | 2023-11-03 16:40 | DS.PCM_ITS ---
Providers Date of Admission: 10/28/23 Date of Discharge: 11/03/23 Primary Care Physician: NIKKO Toscano Consultations 10/29/23 14:58 Consult: Onc/Wound/activity coordinator Routine Comment: Reason for Consult:: bilateral lower legs 10/31/23 16:25 Consult: Gastroenterology Routine Consulting Provider: Nikia Garsiaology Reason for Consult: rectal bleeding EMERGENT Consult: No MD Notified: Yes Date Notified: 10/31/23 Time Notified: 16:25 Method of Notification: Verbal Reason For Visit: ADULT FTT Diagnosis Discharge Diagnosis (1) Impaired mobility and ADLs: Status: Acute Code(s): Z74.09 - Other reduced mobility; Z78.9 - Other specified health status Plan 1. Acute debility secondary to multiple medical problems and morbid obesity-PT and OT will continue to see the patient, he will need temporary placement in nursing home facility for rehab services #2 bilateral lower extremity edema with lymphedematous changes of the skin- patient will remain on IV Lasix #3 right lower leg wounds-eschars present-wound care nurse is seeing the patient #4 paroxysmal atrial fibs and flutter-patient appears to be in sinus rhythm today on my examination, patient's Eliquis is being held due to concerns of GI bleeding #5 type 2 diabetes-patient's blood sugars will be monitored, sliding scale insulin will be used as needed #6 essential hypertension-patient will remain on his present medications, they will be adjusted as needed #7 iron deficiency anemia-possibly secondary to chronic gastrointestinal bleeding from hemorrhoids and fissures #8 Acute bright red rectal bleeding from rectal fissure, internal hemorrhoids, and colon ulceration Total clinical time spent by myself addressing the patient's medical issues, reviewing all of his data, and collaborating with the patient's care team: 35 minutes Medications at Discharge Home Medications ascorbic acid (vitamin C) 250 mg tablet 250 mg PO DAILY 03/17/19 aspirin 81 mg tablet,delayed release 81 mg PO DAILY 03/17/19 carvedilol 25 mg tablet 25 mg PO BID 03/17/19 amlodipine 5 mg tablet 5 mg PO DAILY 10/28/23 apixaban 5 mg tablet (Eliquis) 5 mg PO BID 10/28/23 atorvastatin 20 mg tablet 20 mg PO DAILY 10/28/23 ferrous sulfate 325 mg (65 mg iron) tablet (Feosol) 325 mg PO DAILY 10/28/23 gabapentin 300 mg capsule 300 mg PO TID 10/28/23 melatonin 3 mg tablet 3 mg PO QHS 10/28/23 metoprolol tartrate 25 mg tablet 12.5 mg PO BID 10/28/23 polyethylene glycol 3350 17 gram/dose oral powder (Miralax) 17 g PO BID 10/28/23 acetaminophen 325 mg tablet 650 mg (2 x 325 mg) PO Q4H PRN PRN Fever, pain 1- 04/20 #0 tabs 11/03/23 albuterol sulfate 2.5 mg/3 mL (0.083 %) solution for nebulization 2.5 mg (3 mL) inhalation Q2H PRN PRN Dyspnea, wheezing #0 mL 11/03/23 arginine 7 gram-glutam 7 gram-CaHMB 1.5 izyr-osiqu-xa-min oral pwd pkt (Santhosh (with collagen)) 1 packet PO BIDCM #0 ea 11/03/23 budesonide 0.5 mg/2 mL suspension for nebulization 0.5 mg (2 mL) inhalation BID.RT #0 mL 11/03/23 insulin glargine-yfgn 100 unit/mL (3 mL) subcutaneous pen 40 unit (0.4 mL) subcut DAILY #0 mL 11/03/23 menthol 0.44 %-zinc oxide 20.6 % topical ointment (Calmoseptine) 1 applic topical BID #0 grams 11/03/23 nystatin 100,000 unit/gram topical powder (Nyamyc) 1 applic topical TID #0 grams 11/03/23 potassium chloride 20 mEq tablet,extended release(part/cryst) 20 meq PO BIDCM #0 tabs 11/03/23 Hospital Course Operations None Procedures Colonoscopy Summary of Care Provided Minutes Spent on Discharge: 32 Hospital Course: This 68-year-old white male was seen in the emergency room at [facility] with complaints of acute debility, he had been hospitalized in another facility recently and then underwent skilled services and was released to home. After the patient got home however he found he could not take care of himself and he came to the emergency room for evaluation. Workup in the emergency room included a chemistry panel which was remarkable for BUN of 20 but was otherwise normal. CBC was abnormal for hemoglobin of 8.7. Patient had severe lower leg edema noted on examination along with some eschars on his right lateral leg. These have been caused by an injury recently and resulted and his previous hospitalization recently. Patient placed into observation status on MedSurg 3, he was seen in consultation by the wound care nurse, patient's iron studies revealed him to be iron deficient, he did not require blood transfusion during his hospitalization. Patient was placed on IV Lasix and he underwent diuresis during his hospital stay. PT and OT saw the patient and it was recommended that he go into a skilled facility for short-term rehab services. On 11/03/2023, patient was seen and examined: On examination he appeared in good health and spirits. Vital signs as documented. Skin warm and dry and without overt rashes. Neck without JVD, neck was supple, trachea midline, thyroid was normal. Lungs clear bilaterally, normal air movement was noted. Heart exam notable for regular rhythm, normal sounds and absence of murmurs, rubs or gallops. Abdomen unremarkable and without evidence of organomegaly, masses, or abdominal aortic enlargement. Bowel sounds are present, abdomen is not distended. Extremities edematous, no cyanosis was noted, no clubbing was noted. Neuro: Cranial nerves II through XII are grossly intact, no focal motor deficits were noted, sensation to light touch and pinprick intact, motor exam 5/5 throughout. Psych: Patient is alert and oriented x3, he does not appear anxious or depressed, he does not appear agitated. Patient appears stable for discharge to a skilled facility on 11/03/2023. Weight / BMI Weight Weight: 159.8 kg Body Mass Index (BMI) 45.2 ABG / Lab / Microbiology Data 11/03/23 06:53 11/03/23 06:53 Laboratory: Laboratory Results - last 24 hr 11/02/23 17:27: POC Glucose 89 11/02/23 22:01: POC Glucose 161 H 11/03/23 05:40: POC Glucose 104 11/03/23 06:53: Hgb 9.3 L, Hct 32.4 L, Sodium 137, Potassium 4.1, Chloride 99, Carbon Dioxide 36.0 H, Anion Gap 2 L, BUN 22 H, Creatinine 1.30, Estim Creat Clear Calc 87.11, Est GFR (MDRD) Af Amer 71, Est GFR (MDRD) Non-Af 58 L, BUN /Creatinine Ratio 16.9, Glucose 110 H, Calcium 9.3 11/03/23 10:26: POC Glucose 217 H 11/03/23 11:20: POC Glucose 206 H Meaningful Use Info Meaningful Use Meaningful Use Diagnoses (Choose all that apply): None applicable Ischemic Stroke Statin Dosing Therapy Reference: STATIN DOSE THERAPY REFERENCE: * Patients > 75 years receive moderate or high dose statin therapy. * Patients 75 years or YOUNGER should receive HIGH intensity statin dose unless contraindicated. You will be required to document reason for non-treatment if statin daily dose does not meet guidelines. HIGH DOSE STATIN THERAPY DAILY Atorvastatin > than or = to 40 mg Rosuvastatin > than or = to 20 mg Amlodipine + Atorvastatin > than or = to 2.5/40 mg Ezetimibe + Simvastatin 10/80 mg Simvastatin 80mg Discharge Plan Admission Admit Date/Time: 10/28/23 16:54 Primary Reason for Your Visit: Debility, lower extremity edema, lymphedema Attending Provider: Loiue Howard Primary Care Provider: Hiren Benites NATUROPATHIC DOCTOR Consulting Providers: Louie Howard; [place] Discharge Orders/Prescriptions Prescriptions: New insulin glargine-yfgn 100 unit/mL (3 mL) Insulin Pen 40 unit subcut DAILY Qty: 0 0RF acetaminophen 325 mg Tablet 650 mg PO Q4H PRN PRN (Reason: Fever, pain 1-04/20) Qty: 0 0RF albuterol sulfate 2.5 mg /3 mL (0.083 %) Solution For Nebulization 2.5 mg inhalation Q2H PRN PRN (Reason: Dyspnea, wheezing) Qty: 0 0RF budesonide 0.5 mg/2 mL Suspension For Nebulization 0.5 mg inhalation BID.RT Qty: 0 0RF Santhosh (with collagen) 7-7-1.5 gram Powder In Packet 1 packet PO BIDCM Qty: 0 0RF menthol-zinc oxide [Calmoseptine] 0.44-20.6 % Ointment 1 applic topical BID Qty: 0 0RF Protocol: *Topical Application Instructions APPLICATION INSTRUCTIONS: apply to affected region potassium chloride 20 mEq Tablet,Er Particles/Crystals 20 meq PO BIDCM Qty: 0 0RF nystatin [Nyamyc] 100,000 unit/gram Powder 1 applic topical TID Qty: 0 0RF Protocol: *Topical Application Instructions APPLICATION INSTRUCTIONS: to affected regions Continued carvedilol 25 MG tablet 25 mg PO BID aspirin 81 MG tablet,delayed release (DR/EC) 81 mg PO DAILY ascorbic acid (vitamin C) 250 MG tablet 250 mg PO DAILY atorvastatin 20 mg tablet 20 mg PO DAILY amlodipine 5 mg tablet 5 mg PO DAILY ferrous sulfate [Feosol] 325 mg (65 mg iron) tablet 325 mg PO DAILY gabapentin 300 mg capsule 300 mg PO TID melatonin 3 mg tablet 3 mg PO QHS metoprolol tartrate 25 mg tablet 12.5 mg PO BID polyethylene glycol 3350 [Miralax] 17 gram/dose powder 17 g PO BID Held Eliquis 5 mg tablet 5 mg PO BID Hold Instructions: Resume on 11/17/23. Discontinued doxycycline hyclate 100 mg capsule 100 mg PO BID oxycodone-acetaminophen 5-325 mg tablet 1 tab PO Q6H PRN (Reason: pain) bumetanide 1 mg tablet 0.5 mg PO BID budesonide-formoterol [Symbicort] 160-4.5 mcg/actuation HFA aerosol inhaler 2 puff inhalation DAILY diltiazem HCl 180 mg capsule,extended release 24hr 180 mg PO DAILY furosemide 40 mg tablet 40 mg PO DAILY insulin glargine 100 unit/mL (3 mL) insulin pen 75 unit subcut DAILY insulin lispro 100 unit/mL insulin pen See Rx Instructions subcut TID Patient Comments: DENISE BUCHANAN DOES NOT HAVE SLIDING SCALE DOSE ON MED LIST Rx Instructions: GIVE 0-5 UNITS subcutaneously three times a day; Mounjaro 5 mg/0.5 mL pen injector 5 mg subcut QWEEK Referrals / Follow Up: Hiren Benites NATUROPATHIC DOCTOR, NATUROPATHIC DOCTOR-C [Primary Care Provider] - Disposition Disposition (needs filled in before D/C Order can be placed): [facility] Facility Charges/Coding Visit Charges Inpatient E&M: 99892 Disch Hosp >30min
[2023-11-03 17:00] LABS: Bedside Glucose 164 mg/dL (74-106)
--- NOTE | 2023-11-03 17:00 | CASEMGMT ---
Social Work -discharge note Insurance authorization has been obtained from [employer] time. Updated Denice at [facility]. Completed PASRR screen. Copy made for the senior care and one for the chart. Updated patient and patient's son Hu. [facility]range [facility] ambulance service to pick patient up be a wheelchair van at 7 PM. Nursing aware and noticed call report. Transfer summary medication list to [facility]. No other services requested or indicated. Plan: discharge level of care with PASRR completed to [facility]. -PALOMO Bonilla
--- NOTE | 2023-11-03 17:08 | NURSING ---
Report called to Ruthie Roach pt to be picked up asad at 19:00
--- NOTE | 2023-11-03 18:18 | EX.PCM.PN.GI ---
Subjective Subjective Patient underwent an upper and lower endoscopy yesterday for GI bleed. He is doing very well. Hemoglobin seems stable. He does not have abdominal pain or cramping. He is tolerating regular diet. Objective Data Objective Data Vital Signs: Vital Signs Temp Pulse Resp BP Pulse Ox O2 Del Method O2 Flow Rate 98.6 F 55 L 18 130/82 H 95 Room Air 2 11/03/23 14:45 11/03/23 14:45 11/03/23 14:45 11/03/23 14:45 11/03/23 14:45 11/03/23 14:45 11/02/23 16:45 Oxygen Flow Rate (L/min) 2 Oxygen Delivery Method Room Air Weight: 352 lb 4.779 oz Body Mass Index (BMI) 45.2 Intake & Output: Intake and Output for Last 24 Hours 11/01/23 11/02/23 11/03/23 23:59 23:59 23:59 Intake Total 71 / 71 240 / 240 Output Total 850 / 850 450 / 450 Balance -850 / -850 -379 / -379 240 / 240 Lab / Micro Data 11/03/23 06:53 11/03/23 06:53 Labs: Laboratory Results - last 24 hr 11/02/23 22:01: POC Glucose 161 H 11/03/23 05:40: POC Glucose 104 11/03/23 06:53: Hgb 9.3 L, Hct 32.4 L, Sodium 137, Potassium 4.1, Chloride 99, Carbon Dioxide 36.0 H, Anion Gap 2 L, BUN 22 H, Creatinine 1.30, Estim Creat Clear Calc 87.11, Est GFR (MDRD) Af Amer 71, Est GFR (MDRD) Non-Af 58 L, BUN/Creatinine Ratio 16.9, Glucose 110 H, Calcium 9.3 11/03/23 10:26: POC Glucose 217 H 11/03/23 11:20: POC Glucose 206 H 11/03/23 16:34: POC Glucose 164 H Physical Exam Narrative alert, oriented x3 and no apparent distress Constitutional Narrative: Patient is morbidly obese General Appearance: cooperative, well kempt and well developed Orientation / Consciousness: awake, oriented to person, oriented to place and oriented to time HEENT normocephalic and moist oral mucous membranes Eyes PERRL, EOMs intact bilaterally and conjunctivae normal Neck supple, no JVD and thyroid normal General: trachea midline Resp normal respiratory effort, no retractions, no use of accessory muscles and clear to auscultation bilaterally Auscultation: Negative for rales, rhonchi or wheezes Cardio regular rate, regular rhythm, S1 normal heart sound, S2 normal heart sound, no murmurs, no rub and no gallops GI normal to inspection, nondistended, normoactive bowel sounds, soft to palpation, non-tender and non-distended Extremity Extremity Narrative: Generalized edema is noted over both lower legs worse on the right, there is redness noted with the edema on the right lower leg, there are 3 eschars noted over the lateral aspect of the right lower leg, no drainage is noted from these areas Skin Skin Narrative: There are 3 eschars noted over the lateral aspect of the right lower leg Neuro oriented x3, CN's II-XII intact bilaterally, no focal motor deficits and no sensory deficits noted Sensorium / Orientation: awake and alert Speech: speech normal Psych affect normal Assessment & Plan Assessment/Plan (1) Impaired mobility and ADLs: PLAN: Plan Patient is a 68-year-old male who presented [facility] ED on 10/28/2023 with failure to thrive. 1. Adult failure to thrive; Recent history of mechanical fall with RLE hematoma and mild head laceration; 2. Chronic RLE DVT ? Recent LE duplex ultrasound from outside hospital on 10/21 showed chronic DVT in right proximal femoral vein and right popliteal vein. His Eliquis on hold due to anemia and GI bleeding in the hospital. 3. Anemia and lower GI bleed ? Chronic normocytic anemia: Hemoglobin 8.7 on admit, baseline hemoglobin 8-9. Stable. ? He has been having multiple episodes of lower GI bleeding. He will need to undergo 2023-patient has started his prep. He has not had any bowel movements as of yet. He denies abdominal pain but still is having lower GI bleeding. Plan is for upper and lower endoscopy tomorrow. 11/03/2023- Findings from EGD: Findings: The examined esophagus was normal. A hiatal hernia was present. No gross lesions were noted in the entire examined stomach. One cratered duodenal ulcer with pigmented material was found in the duodenal bulb. The lesion was 6 mm in largest dimension. Coagulation for bleeding prevention using heater probe was successful. Estimated blood loss was minimal. Two non-bleeding linear duodenal ulcers with no stigmata of bleeding were found in the duodenal bulb and in the first portion of the duodenum. The largest lesion was 5 mm in largest dimension. Biopsies were taken with a cold forceps for histology. Verification of patient identification for the specimen was done. Estimated blood loss was minimal. A single 8 mm sessile polyp with bleeding was found in the duodenal bulb. The polyp was removed with a hot snare. Resection and retrieval were complete. Verification of patient identification for the specimen was done. Estimated blood loss was minimal. Impression: - Normal esophagus. - Hiatal hernia. - No gross lesions in the entire stomach. - Duodenal ulcer with pigmented material. Treated with a heater probe. - Non-bleeding duodenal ulcers with no stigmata of bleeding. Biopsied. Recommendation: - Return patient to [facility] for [facility] care. - Resume regular diet. - Continue present medications. - Await pathology results. - Repeat upper endoscopy in 4 months for surveillance. Findings from colonoscopy Findings: An anal fissure was found on perianal exam. Non-bleeding internal hemorrhoids were found during retroflexion. The hemorrhoids were mild, small and Grade I (internal hemorrhoids that do not prolapse). A 5 mm anal fissure was found in the anal canal. Coagulation for hemostasis using argon plasma at 0.3 liters/minute and 20 de luna was successful. Estimated blood loss was minimal. Multiple small-mouthed diverticula were found in the recto-sigmoid colon and sigmoid colon. Three sessile polyps were found in the sigmoid colon and ascending colon. The polyps were 1 to 2 mm in size. These polyps were removed with a hot snare. Resection and retrieval were complete. To prevent bleeding post-intervention, one hemostatic clip was successfully placed. Clip social service manager: [employer]. There was no bleeding at the end of the procedure. A single (solitary) six mm ulcer was found at the hepatic flexure. Oozing was present. Stigmata of recent bleeding were present. Coagulation for hemostasis using heater probe was successful. Estimated blood loss was minimal. Impression: - Preparation of the colon was fair. - Anal fissure found on perianal exam. - Non-bleeding internal hemorrhoids. - Anal fissure. Treated with argon plasma coagulation (APC). - Diverticulosis in the recto-sigmoid colon and in the sigmoid colon. - Three 1 to 2 mm polyps in the sigmoid colon and in the ascending colon, removed with a hot snare. Resected and retrieved. Clip was placed. Clip social service manager: [employer]. - A single (solitary) ulcer at the hepatic flexure. Treated with a heater probe. Recommendation: - Discharge patient to home. - Resume regular diet. - Continue present medications. - Await pathology results. - Repeat colonoscopy in 1 year for surveillance. Charges/Coding Visit Charges Inpatient E&M: 81746 Subs Hosp L3
[2023-11-03 19:10] VITALS: PULSE 52; RESP 18; O2SAT 93
[2023-11-03] MEDS: Budesonide Respules 0.5 MG/2 ML AMPUL.NEB. INHALATION (19:14)
[2023-11-03] MEDS: Albuterol 2.5 MG/3 ML VIAL.NEB. INHALATION (19:14)
[2023-11-03 21:19] VITALS: BP 135/70; PULSE 60; RESP 18; TEMP 36.8; O2SAT 93
[2023-11-03 21:53] LABS: Bedside Glucose 149 mg/dL (74-106)
== END 2023-11-03 22:30 | disposition skilled nursing facility (03) ==
LOC: ED 17:32 → MS3 18:01
PROVIDERS: Anesthesiology; Hospitalist; Internal Medicine Gastroenterology; Physician Assistant; Admitting Provider Family Medicine; Emergency Provider Emergency Medicine; PCP Nurse Practitioner Primary Care; Visit Provider Internal Medicine
PROC: 0DJD8ZZ Inspection of Lower Intestinal Tract, Via Natural or Artificial Opening Endoscopic (ICD-10-PCS; CPT 45378; principal; 2023-11-02 15:10)
DX: R53.81 Other malaise (principal); I48.0 Paroxysmal atrial fibrillation; I48.92 Unspecified atrial flutter; E66.01 Morbid (severe) obesity due to excess calories; Z68.42 Body mass index [BMI] 45.0-49.9, adult; E11.51 Type 2 diabetes mellitus with diabetic peripheral angiopathy without gangrene; E11.22 Type 2 diabetes mellitus with diabetic chronic kidney disease; E11.59 Type 2 diabetes mellitus with other circulatory complications; Z79.4 Long term (current) use of insulin; K60.2 Anal fissure, unspecified; N18.2 Chronic kidney disease, stage 2 (mild); I87.2 Venous insufficiency (chronic) (peripheral); I12.9 Hypertensive chronic kidney disease with stage 1 through stage 4 chronic kidney disease, or unspecified chronic kidney disease; K44.9 Diaphragmatic hernia without obstruction or gangrene; K26.9 Duodenal ulcer, unspecified as acute or chronic, without hemorrhage or perforation; Z79.84 Long term (current) use of oral hypoglycemic drugs; R26.2 Difficulty in walking, not elsewhere classified; K57.30 Diverticulosis of large intestine without perforation or abscess without bleeding; K62.5 Hemorrhage of anus and rectum; K64.0 First degree hemorrhoids; G47.33 Obstructive sleep apnea (adult) (pediatric); D50.9 Iron deficiency anemia, unspecified; K63.5 Polyp of colon; R60.0 Localized edema; Z87.891 Personal history of nicotine dependence; E78.5 Hyperlipidemia, unspecified; Z79.899 Other long term (current) drug therapy; Z79.82 Long term (current) use of aspirin; S81.801A Unspecified open wound, right lower leg, initial encounter; X58.XXXA Exposure to other specified factors, initial encounter; Z95.2 Presence of prosthetic heart valve; K63.3 Ulcer of intestine; D12.2 Benign neoplasm of ascending colon; D12.5 Benign neoplasm of sigmoid colon
CPT/HCPCS: 45385; 43255; 43251; 43239; 45382; 36415; 71045; 80048; 80053; 82607; 82728; 82746; 82962; 83036; 83540; 83550; 84484; 85014; 85018; 85025; 88305; 93005; 94640; 94660; 94668; 96365; 96366; 96375; 96376; 97110; 97162; 97166; 97530; 97535; 97802; 99221; 99285; J7050; J7120; A4216; G0378; J1940; J2405; J2916

== ENCOUNTER → 2023-11-30 | Outpatient (CLI) | payer MEDICARE, SELFPAY | END | disposition home or self-care (01) | LOC: LABSPEC 14:40 | PROVIDERS: PCP Nurse Practitioner Primary Care; Referring Provider Surgery; Visit Provider Surgery | DX: E11.622 Type 2 diabetes mellitus with other skin ulcer (principal); L97.913 Non-pressure chronic ulcer of unspecified part of right lower leg with necrosis of muscle; I48.91 Unspecified atrial fibrillation; E66.01 Morbid (severe) obesity due to excess calories; I38 Endocarditis, valve unspecified; I87.2 Venous insufficiency (chronic) (peripheral); N40.0 Benign prostatic hyperplasia without lower urinary tract symptoms; D50.0 Iron deficiency anemia secondary to blood loss (chronic); I10 Essential (primary) hypertension; K44.9 Diaphragmatic hernia without obstruction or gangrene; K57.90 Diverticulosis of intestine, part unspecified, without perforation or abscess without bleeding; R53.81 Other malaise; G47.33 Obstructive sleep apnea (adult) (pediatric); Z86.79 Personal history of other diseases of the circulatory system; M79.89 Other specified soft tissue disorders; R60.0 Localized edema; Z95.2 Presence of prosthetic heart valve; Z86.718 Personal history of other venous thrombosis and embolism | CPT/HCPCS: 11042; 11043; 11046; 87070; 87075; 87077; 87186; 87205; 99214; G0463 ==

== ENCOUNTER 2023-12-07 14:00 | Outpatient (RCR) | payer MEDICARE, SELFPAY ==
[2023-11-30 10:01] VITALS: BP 123/48; PULSE 49; RESP 18; TEMP 36.2; BMI 44.6
--- NOTE | 2023-11-30 14:19 | PCM.WC.HP ---
History of Present Illness Date of Service: 11/30/23 Chief Complaint: Ulcerations of the right lateral calf with large areas of necrosis, and extension into muscle History of Wound: This is a 68-year-old morbidly obese diabetic male who presented with 3 large ulcerations on the right lateral calf. According to the patient, they have been present for approximately 6 weeks. The patient has multiple other pre-existing medical problems, which have been listed below. He has recently been treated for blood loss anemia from a gastrointestinal source. He is a resident of [facility] in [place], [place]. He has a history of bilateral lower extremity deep vein thrombosis, and a venous duplex examination performed on October 22, 2023, reveals chronic changes in the right lower extremity deep venous system, with a normal superficial venous system. Management of the patient's wound has been by means of the prison Wire Mesh Knitter, Dr. Reyna, from [place], [place]. Approximately 1 week ago, the patient underwent placement of a left upper extremity PICC catheter and is receiving vancomycin and Zosyn intravenously. The patient had been on chronic systemic anticoagulation with Eliquis until recently, which was discontinued as a result of his recent gastrointestinal bleeding. The patient underwent laboratory studies earlier today, the results of which will be sought. Laboratory results from November 03, 2023, revealed the following: Hemoglobin 9.3, hematocrit 32.4, sodium 137, potassium 4.1, chloride 99, BUN 22, creatinine 1.30, glucose 110. A chest x-ray on October 28, 2023, revealed no acute abnormalities. The patient is not active. He claims to sleep on a flat mattress at night. [facility] Medical History (Updated 11/30/23 @ 14:[address] 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 BPH (benign prostatic hyperplasia) Atrial fibrillation History of deep vein thrombosis (DVT) of lower extremity Blood loss anemia Hypertension Hiatal hernia Diverticulosis Debility Morbid obesity with BMI of 40.0-44.9, adult Obstructive sleep apnea on CPAP History of congestive heart failure Impaired mobility Chronic anemia Venous insufficiency (chronic) (peripheral) Sleep apnea DM2 (diabetes mellitus, type 2) Benign essential HTN SOB (shortness of breath) Recurrent right inguinal hernia Heart murmur Heart failure 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 2 diabetes mellitus Aortic valve disease Renal mass, left History of DVT (deep vein thrombosis) Valvular heart disease Atrial fibrillation/flutter Chronic acquired lymphedema Ulcer of left lower extremity with fat layer exposed Superficial thrombosis of left lower extremity Peripheral vascular disease of lower extremity with ulceration Morbid obesity Home Medications ?Medication ?Instructions ?Recorded ?Last Taken ?Type aspirin 81 mg tablet,delayed 81 mg PO DAILY 03/17/19 Unknown History release carvedilol 25 mg tablet 25 mg PO BID 03/17/19 Unknown History amlodipine 5 mg tablet 5 mg PO DAILY 10/28/23 Unknown History apixaban 5 mg tablet (Eliquis) 5 mg PO BID 10/28/23 Unknown History atorvastatin 20 mg tablet 20 mg PO DAILY 10/28/23 Unknown History ferrous sulfate 325 mg (65 mg 325 mg PO DAILY 10/28/23 Unknown History iron) tablet (Feosol) gabapentin 300 mg capsule 300 mg PO TID 10/28/23 Unknown History melatonin 3 mg tablet 3 mg PO QHS 10/28/23 Unknown History metoprolol tartrate 25 mg tablet 12.5 mg PO BID 10/28/23 Unknown History polyethylene glycol 3350 17 17 g PO BID 10/28/23 Unknown History gram/dose oral powder (Miralax) acetaminophen 325 mg tablet 650 mg (2 x 325 mg) PO Q4H PRN PRN 11/03/23 Unknown Rx Fever, pain 1-1010 #0 tabs albuterol sulfate 2.5 mg/3 mL 2.5 mg (3 mL) inhalation Q2H PRN 11/03/23 Unknown Rx (0.083 %) solution for nebulization PRN Dyspnea, wheezing #0 mL arginine 7 gram-glutam 7 1 packet PO BIDCM #0 ea 11/03/23 Unknown Rx gram-CaHMB 1.5 dwlk-toror-av-min oral pwd pkt (Santhosh (with collagen)) budesonide 0.5 mg/2 mL suspension 0.5 mg (2 mL) inhalation BID.RT #0 11/03/23 Unknown Rx for nebulization mL insulin glargine-yfgn 100 unit/mL 40 unit (0.4 mL) subcut DAILY #0 mL 11/03/23 Unknown Rx (3 mL) subcutaneous pen menthol 0.44 %-zinc oxide 20.6 % 1 applic topical BID #0 grams 11/03/23 Unknown Rx topical ointment (Calmoseptine) nystatin 100,000 unit/gram topical 1 applic topical TID #0 grams 11/03/23 Unknown Rx powder (Nyamyc) potassium chloride 20 mEq 20 meq PO BIDCM #0 tabs 11/03/23 Unknown Rx tablet,extended release(part/cryst) amiodarone 200 mg tablet 200 mg PO BID 11/29/23 Unknown History ascorbic acid (vitamin C) 250 mg 500 mg PO DAILY 11/29/23 Unknown History tablet furosemide 40 mg tablet 40 mg PO BID 11/29/23 Unknown History insulin degludec 200 unit/mL (3 94 unit subcut DAILY 11/29/23 Unknown History mL) subcutaneous pen (Tresiba FlexTouch U-200 insulin) metformin 500 mg tablet,extended 500 mg PO BID 11/29/23 Unknown History release 24 hr semaglutide 2 mg/dose (8 mg/3 mL) 2 mg subcut QWEEK 11/29/23 Unknown History subcutaneous pen injector (Ozempic) Allergy/AdvReac Type Severity Reaction Status Date / Time ibuprofen (From Nuprin) Allergy Unknown Verified 11/30/23 10:00 Family History Mother Diabetes Father Cirrhosis of liver Alcoholism Surgical History History of right inguinal hernia repair H/O colectomy History of repair of inguinal hernia History of bladder surgery History of tonsillectomy and adenoidectomy History of right inguinal hernia repair S/P AVR (aortic valve replacement) Social History household members: children Smoking Status: Former smoker how long ago did patient quit smoking: Quit ~ 20 yrs prior, smoked age 15 until quit ~ 2 ppd. alcohol intake: never substance use type: does not use Vital Signs Vital Signs Vital Signs: 11/30/23 10:01 Temperature 97.2 F L Temperature Source Temporal Pulse Rate 49 L Respiratory Rate 18 Blood Pressure 123/48 H Blood Pressure Mean 73 Blood Pressure Source Monitor Blood Pressure Position Semi-Fowlers Blood Pressure Location Left Arm Oxygen Delivery Method Room Air Weight Weight: 348 lb Body Mass Index (BMI) 44.6 Physical Exam Const alert, oriented x3 and no apparent distress Constitutional Narrative: The patient is morbidly obese. His BMI is 44.6 General Appearance: cooperative, comfortable and well developed Orientation / Consciousness: awake, oriented to person, oriented to place and oriented to time Exam Limitations: no limitations HEENT normocephalic and head/scalp atraumatic Head and Scalp: normal to inspection, normocephalic and atraumatic External Ear: external ears normal Eyes EOMs intact bilaterally General Eye: normal appearance of both eyes Neck full ROM Resp normal respiratory effort, normal air movement, no retractions, no use of accessory muscles and clear to auscultation bilaterally Effort and Inspection: able to speak in complete sentences Cardio regular rate, regular rhythm, S1 normal heart sound and S2 normal heart sound Extremity General Extremity: Negative for clubbing or cyanosis Skin Wound Narrative: Severe swelling, edema, and lymphedema are noted in the patient's lower extremities bilaterally. Hyperpigmentation and lipodermatosclerosis are noted in the gaiter areas bilaterally. Ulcerations are noted on the anterolateral aspect of the patient's right calf. The most superior of the ulcerations is the smallest, and extends only into the subcutaneous adipose tissue. There is a moderate amount of necrotic and nonviable tissue. The 2 inferior ulcerations are extremely large, and extend through all dermal and subcutaneous layers and well into the muscle layers. There is a large degree of undermining of these 2 large ulcerations. There is a large amount of necrotic and nonviable tissue. A bad odor is noted. There is suspicion of oleg infection, for which swab cultures have been obtained for aerobic and anaerobic bacterial growth. Neuro oriented x3, CN's II-XII intact bilaterally, moves all extremities and no focal motor deficits Sensorium / Orientation: awake, alert, oriented to person, oriented to place and oriented to time Psych Appearance: grossly normal and appropriate Attitude: calm Activity / Motor Behavior: appropriate eye contact Speech: normal speech Mood & Affect: euthymic mood Thought Process: normal thought process Thought Content: normal thought content Attention / Concentration: attention grossly intact Debridement Note Debridement Note Wound debrided: Right lateral calf ulcerations Laterality: Right Type of Debridement: Excisional debridement Anesthesia Used: 5% Lidocaine Gel Depth: Down to and including healthy tissue, in the subcutaneous layer and to muscle Percentage of wound debrided: 90 Instrument Used: 5mm curette, #15 blade and Forceps Tissue Removed: Necrotic and nonviable tissue, gangrenous tissue, devitalized tissue Severity: Necrosis of Muscle Amount of bleeding with debridement: Mild Bleeding Controlled with: Compression and gauze Patient tolerated procedure: Patient tolerated procedure well Debridement Free Text: Swab cultures were obtained for anaerobic and aerobic bacterial growth Post-Debridement Measurements and Additional Note: Post-Debridement Measurements/Treatment WC - Nurse 1 - General Ulcer Assessment Start: 11/30/23 10:00 Freq: Status: Active Protocol: GALE Activity Type Activity Date Activity User E-sign Co-sign Detail Recorded Client Recorded Date Recorded By Document 11/30/23 10:01 KW wound center 11/30/23 10:31 KW 11/30/23 10:01 - Today's Visit Information Type of service Initial Visit Arrival Mode Wheelchair Patient Identification Verified (Name & Yes ) Finger Stick Blood Sugar(mg/dl) (if 140 indicated): Blood Sugar Stated by Patient Height and Weight Height 6 ft 2 in Weight 348 lb Weight in Pounds 348.0 lbs Body Mass Index (BMI) 44.6 BMI Classification Obese BSA - Victorina 2.75 Vital Signs Temperature (97.8 F-99.1 F) 97.2 F L Temperature Source Temporal Pulse Rate (60-100) 49 L Pulse Location Monitor Respiratory Rate (12-18) 18 Respiratory rate source Observation Oxygen Delivery Method Room Air Blood Pressure (90/60-120/80) 123/48 H Blood Pressure Mean 73 Source Monitor Position Semi-Fowlers Blood Pressure Location Left Arm History Since Last Visit- (Skip if this is Patient's initial visit) Left Footwear Slipper Right Footwear Slipper Pain Scale: 0-10 Numeric Is Patient Pain Free? Yes Lower Extremity Assessment/ Foot Assessment/ Toe Nail Assessment Left -Polpliteal Pulses Palpable No -Popliteal Doppler Monophasic -Posterior Tibial Palpable No -Posterior Tibial Doppler Monophasic -Dorsalis Pedis Palpable No -Dorsalis Pedis Doppler Multiphasic -Extremity Color Hyperpigmented -Hair Growth on Legs No -Hair Growth on Toes No -Temperature of Extremity Cool -Capillary Refill Less than 3 Seconds -Thick Yes -Discolored Yes -Deformed Yes -Improper Length & Hygeine No Right -Polpliteal Pulses Palpable No -Posterior Tibial Palpable No -Posterior Tibial Doppler Monophasic -Dorsalis Pedis Palpable No -Dorsalis Pedis Doppler Monophasic -Extremity Color Hemosiderin -Hair Growth on Legs No -Hair Growth on Toes No -Temperature of Extremity Cool -Capillary Refill Less than 3 Seconds -Thick Yes -Discolored Yes -Deformed Yes -Improper Length & Hygeine No Communication Assessment Preferred language [place] Police Artist Required No Able to Read Yes Able to Write Yes Communication Tools None Caregiver Communication Skills No Impairment Impairment Right Hearing Abillity Hard of Hearing Left Hearing Abillity Hard of Hearing Visual Assistive Devices Glasses Teaching Assessment Preferences Verbal,Written, Demonstration Barriers to Learning None Readiness To Learn Excellent Willingness to Engage in Self Management High Activies Readiness to Engage in Self Management High Activities Anxiety Level Calm Cooperation Cooperative Perception Coherent Interest in Health Problem Asks Questions Education Importance Acknowledges Need Does Patient Smoke tobacco or other No substances Is Patient Diabetic Yes Functional Assessment Recent Decline in Ability to Perform Ambulation, Bathing,Lower Body Dressing, Transferring Culture/Evangelical/Parts Interpreter Cultural/Evangelical Needs that may affect No Treatment Plan Would you allow our hospital financing analyst to No meet you for the purpose of spiritual/ emotional support? Parts Interpreter to contact place of uatsdin No WC - Nurse 1 - General Ulcer Measurement Start: 11/30/23 10:00 Freq: Status: Active Protocol: Activity Type Activity Date Activity User E-sign Co-sign Detail Recorded Client Recorded Date Recorded By Document 11/30/23 10:01 wound center 11/30/23 10:31 11/30/23 10:01 Wound Center Nurse 1 4. RLE lateral inferior- lower -Combined with other wound No -Current Size (cm) - Length 8 -Current Size (cm) - Width 8.7 -Current Size (cm) - Depth 1.6 -Total Square Cm 69.6 -Photo Taken Yes -Tunneling No -Undermining/Tunneling Yes -Undermining/Tunneling Starts (O'clock 1 ) -Undermining/Tunneling Ends (O'clock) 2 -Maximum Distance (cm) 2 -Circular Undermining No -Exudate Amt Large -Exudate Type Serosanguineous -Wound Margin Thickened & Rolled Under -Granulation Amt Medium (34-66%) -Granulation Quality Skillman -Slough/Fibrin Yes -Necrosis Amt Medium (34-66%) -Necrotic Tissue Type Eschar -Structure Exposed Fascia -Texture (Mariza-wound Skin Appearance) Assessed -Moisture (Mariza-wound Skin Appearance) Assessed, Maceration -Color (Mariza-wound Skin Appearance) Assessed, Hemosiderin Staining -Temperature (Mariza-wound Skin No Abnormality Appearance) (Pt Warm) -Tenderness on Palpation (Mariza-wound No Skin Appearance) -Ulcer Cleansing Wound Cleanser -Foul Odor after Cleansing No -Anesthetic Used 4% Lidocaine Solution 3. RLE lateral middle -Combined with other wound No -Current Size (cm) - Length 5 -Current Size (cm) - Width 7.5 -Current Size (cm) - Depth 1.4 -Total Square Cm 37.5 -Photo Taken Yes -Tunneling No -Undermining/Tunneling Yes -Undermining/Tunneling Starts (O'clock 3 ) -Undermining/Tunneling Ends (O'clock) 2 -Circular Undermining Yes -Exudate Amt Large -Exudate Type Serosanguineous -Wound Margin Thickened & Rolled Under -Granulation Amt Medium (34-66%) -Granulation Quality Skillman -Slough/Fibrin Yes -Necrosis Amt Medium (34-66%) -Necrotic Tissue Type Adherent Slough -Structure Exposed Fascia,N/A -Texture (Mariza-wound Skin Appearance) Assessed -Moisture (Mariza-wound Skin Appearance) Assessed, Maceration -Color (Mariza-wound Skin Appearance) Hemosiderin Staining -Temperature (Mariza-wound Skin No Abnormality Appearance) (Pt Warm) -Tenderness on Palpation (Mariza-wound No Skin Appearance) -Ulcer Cleansing Wound Cleanser -Foul Odor after Cleansing No -Anesthetic Used 4% Lidocaine Solution 2. RLE lateral superior -Combined with other wound No -Current Size (cm) - Length 2 -Current Size (cm) - Width 3.4 -Current Size (cm) - Depth 0.2 -Total Square Cm 6.8 -Photo Taken Yes -Tunneling No -Undermining/Tunneling No -Circular Undermining No -Exudate Amt Small -Exudate Type Serosanguineous -Wound Margin Distinct, Outline Attached -Granulation Amt Medium (34-66%) -Granulation Quality Skillman -Slough/Fibrin Yes -Necrosis Amt Medium (34-66%) -Necrotic Tissue Type Eschar -Structure Exposed N/A -Texture (Mariza-wound Skin Appearance) Assessed -Moisture (Mariza-wound Skin Appearance) Assessed -Color (Mariza-wound Skin Appearance) Hemosiderin Staining -Temperature (Mariza-wound Skin No Abnormality Appearance) (Pt Warm) -Tenderness on Palpation (Mariza-wound No Skin Appearance) -Ulcer Cleansing Wound Cleanser -Foul Odor after Cleansing No -Anesthetic Used 4% Lidocaine Solution Lower Limb Edema Present Yes Right Calf (cm) 57 Right Ankle (cm) 31 Left Calf (cm) 51.5 Left Ankle (cm) 32.5 WC - Nurse 2 - General Ulcer CM Notes Start: 11/30/23 10:00 Freq: Status: Active Protocol: Activity Type Activity Date Activity User E-sign Co-sign Detail Recorded Client Recorded Date Recorded By Document 11/30/23 10:45 [place] [id number] 11/30/23 11:16 DS 11/30/23 10:45 Wound Center Nurse 2 4. RLE lateral inferior- lower -Time 10:45 -Correct Patient Yes -Correct Side, Site, Position Yes -Correct Procedure Yes -Procedure Performed Yes -Type of Procedure Debridement -Clinical Debridement Muscle / Fascia -Tissue Removed Muscle,Fascia -Post Debridement (cm) - Length 8.0 -Post Debridement (cm) - Width 8.2 -Post Debridement (cm) - Depth 3.5 -Total Square (Post) (cm) 65.60 -Area of Debridement (cm) - Length 8.0 -Area of Debridement (cm) - Width 8.2 -Total Square (Area) (cm) 65.60 -Tunneling No -Undermining/Tunneling Yes -Undermining/Tunneling Starts (O'clock 11 ) -Undermining/Tunneling Ends (O'clock) 5 -Maximum Distance (cm) 6 -Wound/Ulcer Outcome Not Healed -Ulcer Cleansing Rinsed/ Irrigated with Saline -Bleeding Controlled with Pressure -Treatment Response Procedure Tolerated Well -Debridement - Muscle / Fascia, 1st Yes 20sq cm -Debridement, Muscle/Fascia, ea addt'l 4 20sq cm or part thereof 3. RLE lateral middle -Time 11:07 -Correct Patient Yes -Correct Side, Site, Position Yes -Correct Procedure Yes -Procedure Performed Yes -Type of Procedure Debridement -Clinical Debridement Muscle / Fascia -Tissue Removed Muscle,Fascia -Post Debridement (cm) - Length 4.8 -Post Debridement (cm) - Width 6.0 -Post Debridement (cm) - Depth 3.0 -Total Square (Post) (cm) 28.80 -Area of Debridement (cm) - Length 4.8 -Area of Debridement (cm) - Width 6.0 -Total Square (Area) (cm) 28.80 -Tunneling No -Undermining/Tunneling Yes -Undermining/Tunneling Starts (O'clock 12 ) -Undermining/Tunneling Ends (O'clock) 5 -Maximum Distance (cm) 10 -Wound/Ulcer Outcome Not Healed -Ulcer Cleansing Rinsed/ Irrigated with Saline -Bleeding Controlled with Pressure -Treatment Response Procedure Tolerated Well -Debridement - Muscle / Fascia, 1st No 20sq cm 2. RLE lateral superior -Time 11:03 -Correct Patient Yes -Correct Side, Site, Position Yes -Correct Procedure Yes -Procedure Performed Yes -Type of Procedure Debridement -Clinical Debridement Subcutaneous -Tissue Removed Subcutaneous -Post Debridement (cm) - Length 1.5 -Post Debridement (cm) - Width 3.0 -Post Debridement (cm) - Depth 0.3 -Total Square (Post) (cm) 4.50 -Area of Debridement (cm) - Length 1.5 -Area of Debridement (cm) - Width 3.0 -Total Square (Area) (cm) 4.50 -Tunneling No -Undermining/Tunneling No -Circular Undermining No -Wound/Ulcer Outcome Not Healed -Ulcer Cleansing Rinsed/ Irrigated with Saline -Bleeding Controlled with Pressure -Treatment Response Procedure Tolerated Well -Debridement - Subq, 1st 20sq cm Yes Pain Scale: 0-10 Numeric Is Patient Pain Free? 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: CODE(S): L97.913 - Non-pressure chronic ulcer of unspecified part of right lower leg with necrosis of muscle (2) Right leg swelling: CODE(S): M79.89 - Other specified soft tissue disorders (3) Left leg swelling: CODE(S): M79.89 - Other specified soft tissue disorders (4) Edema of right lower leg: CODE(S): R60.0 - Localized edema (5) Edema of left lower leg: CODE(S): R60.0 - Localized edema (6) Morbid obesity with BMI of 40.0-44.9, adult: CODE(S): E66.01 - Morbid (severe) obesity due to excess calories; Z68.41 - Body mass index [BMI] 40.0-44.9, adult (7) DM2 (diabetes mellitus, type 2): CODE(S): E11.9 - Type 2 diabetes mellitus without complications QUALIFIERS: Diabetes mellitus complication status: with circulatory complication (8) S/P AVR (aortic valve replacement): CODE(S): Z95.2 - Presence of prosthetic heart valve (9) History of deep vein thrombosis (DVT) of lower extremity: CODE(S): Z86.718 - Personal history of other venous thrombosis and embolism (10) Lymphedema of right lower extremity: CODE(S): I89.0 - Lymphedema, not elsewhere classified (11) Lymphedema of left lower extremity: CODE(S): I89.0 - Lymphedema, not elsewhere classified (12) History of right inguinal hernia repair: CODE(S): Z98.890 - Other specified postprocedural states; Z87.19 - Personal history of other diseases of the digestive system (13) Impaired mobility: CODE(S): Z74.09 - Other reduced mobility (14) Recurrent right inguinal hernia: CODE(S): K40.91 - Unilateral inguinal hernia, without obstruction or gangrene, recurrent (15) History of congestive heart failure: CODE(S): Z86.79 - Personal history of other diseases of the circulatory system (16) Impaired mobility and ADLs: CODE(S): Z74.09 - Other reduced mobility; Z78.9 - Other specified health status (17) Obstructive sleep apnea on CPAP: CODE(S): G47.33 - Obstructive sleep apnea (adult) (pediatric) (18) Debility: CODE(S): R53.81 - Other malaise (19) Diverticulosis: CODE(S): K57.90 - Diverticulosis of intestine, part unspecified, without perforation or abscess without bleeding (20) Hiatal hernia: CODE(S): K44.9 - Diaphragmatic hernia without obstruction or gangrene (21) Hypertension: CODE(S): I10 - Essential (primary) hypertension (22) Blood loss anemia: CODE(S): D50.0 - Iron deficiency anemia secondary to blood loss (chronic) (23) Atrial fibrillation: CODE(S): I48.91 - Unspecified atrial fibrillation (24) BPH (benign prostatic hyperplasia): CODE(S): N40.0 - Benign prostatic hyperplasia without lower urinary tract symptoms (25) Chronic venous insufficiency: CODE(S): I87.2 - Venous insufficiency (chronic) (peripheral) (26) Atrial fibrillation/flutter: CODE(S): I48.91 - Unspecified atrial fibrillation; I48.92 - Unspecified atrial flutter (27) Valvular heart disease: CODE(S): I38 - Endocarditis, valve unspecified PLAN: Plan This is a 68-year-old morbidly obese diabetic male with multiple pre-existing medical problems, which have been listed elsewhere. He presents with 3 ulcerations on the right anterolateral calf, 2 of which are quite large and necrotic, and with extension into the muscular layers. There is a large amount of undermining. The ulcerations are malodorous, with suspicion of infection. Swab cultures have been obtained for aerobic and anaerobic bacterial growth. Laboratory studies have been obtained today at the patient's prison, the results of which will be requested. We are to implement care of the patient's ulcerations initially by means of Dakin's?moistened gauze packing. This will be changed as necessary, or daily. Compression will be initiated by means of Celso wrap's, which will be applied to the lower extremities bilaterally. The patient has been encouraged to elevate his lower extremities is much as possible. He has been advised to refrain from prolonged idle sitting. Optimization of glycemic control and nutrition have been recommended. It is anticipated that the patient will remain on vancomycin and Zosyn intravenously per his PICC catheter. He is to return in 1 week for reassessment. He is to seek urgent medical attention should his condition worsen. It should be noted that the severity of his ulcerations and his pre-existing medical problems are felt to represent a poor prognosis for limb salvage. It is possible, if not likely, that surgical debridement and unroofing may be warranted in the near future. Total time: 68 minutes
--- NOTE | 2023-12-01 13:57 | WC ---
11/30/2023 RLE LATERAL MEDIAL
--- NOTE | 2023-12-01 13:57 | WC ---
11/30/2023 RIGHT LATERAL SUPERIOR LE
[2023-12-07 13:39] VITALS: BP 167/86; PULSE 60; RESP 16; TEMP 36.2; BMI 44.6
--- NOTE | 2023-12-07 16:29 | PCM.WC.HP ---
History of Present Illness Date of Service: 12/07/23 Chief Complaint: Ulcerations of the right lateral calf with large areas of necrosis, and extension into muscle History of Wound: This is a 68-year-old morbidly obese diabetic male who presented with 3 large ulcerations on the right lateral calf. According to the patient, they had been present for approximately 6 weeks. The origin of the ulcerations is uncertain, though they may have resulted from a fall which the patient experienced while at home. The patient has multiple pre-existing medical problems, which have been listed below. He had recently been treated for blood loss anemia from a gastrointestinal source. He is a resident of [facility] in [place], [place]. He has a history of bilateral lower extremity deep vein thrombosis, and a venous duplex examination performed on October 22, 2023, revealed chronic changes in the right lower extremity deep venous system, with a normal superficial venous system. Management of the patient's wound had been by means of the [facility], Dr. Reyna, from [place], [place]. Approximately 1 week prior to presentation, the patient underwent placement of a left upper extremity PICC catheter and has been receiving vancomycin and Zosyn intravenously. The patient had been on chronic systemic anticoagulation with Eliquis until recently, which was discontinued as a result of his recent gastrointestinal bleeding. The patient underwent laboratory studies recently, the results of which are as follows: Glucose 106, sodium 145, potassium 4.9, chloride 107, BUN 30, creatinine 1.3, calcium 9.0, white blood count 5.4, hemoglobin 10.0, hematocrit 32.3, platelets 141,000, sed rate 35, D-dimer 1.81, C-reactive protein 37.6. A chest x-ray on October 28, 2023, revealed no acute abnormalities. The patient is not active. He claims to sleep on a flat mattress at night. [facility] Medical History (Updated 12/07/23 @ 16:[address] 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 BPH (benign prostatic hyperplasia) Atrial fibrillation History of deep vein thrombosis (DVT) of lower extremity Blood loss anemia Hypertension Hiatal hernia Diverticulosis Debility Morbid obesity with BMI of 40.0-44.9, adult Obstructive sleep apnea on CPAP History of congestive heart failure Impaired mobility Chronic anemia Venous insufficiency (chronic) (peripheral) Sleep apnea DM2 (diabetes mellitus, type 2) Benign essential HTN SOB (shortness of breath) Recurrent right inguinal hernia Heart murmur Heart failure 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 2 diabetes mellitus Aortic valve disease Renal mass, left History of DVT (deep vein thrombosis) Valvular heart disease Atrial fibrillation/flutter Chronic acquired lymphedema Ulcer of left lower extremity with fat layer exposed Superficial thrombosis of left lower extremity Peripheral vascular disease of lower extremity with ulceration Morbid obesity Home Medications ?Medication ?Instructions ?Recorded ?Last Taken ?Type aspirin 81 mg tablet,delayed 81 mg PO DAILY 03/17/19 Unknown History release carvedilol 25 mg tablet 25 mg PO BID 03/17/19 Unknown History amlodipine 5 mg tablet 5 mg PO DAILY 10/28/23 Unknown History apixaban 5 mg tablet (Eliquis) 5 mg PO BID 10/28/23 Unknown History atorvastatin 20 mg tablet 20 mg PO DAILY 10/28/23 Unknown History ferrous sulfate 325 mg (65 mg 325 mg PO DAILY 10/28/23 Unknown History iron) tablet (Feosol) gabapentin 300 mg capsule 300 mg PO TID 10/28/23 Unknown History melatonin 3 mg tablet 3 mg PO QHS 10/28/23 Unknown History metoprolol tartrate 25 mg tablet 12.5 mg PO BID 10/28/23 Unknown History polyethylene glycol 3350 17 17 g PO BID 10/28/23 Unknown History gram/dose oral powder (Miralax) acetaminophen 325 mg tablet 650 mg (2 x 325 mg) PO Q4H PRN PRN 11/03/23 Unknown Rx Fever, pain 1-10/10 #0 tabs albuterol sulfate 2.5 mg/3 mL 2.5 mg (3 mL) inhalation Q2H PRN 11/03/23 Unknown Rx (0.083 %) solution for nebulization PRN Dyspnea, wheezing #0 mL arginine 7 gram-glutam 7 1 packet PO BIDCM #0 ea 11/03/23 Unknown Rx gram-CaHMB 1.5 sjtx-nsigz-mz-min oral pwd pkt (Santhosh (with collagen)) budesonide 0.5 mg/2 mL suspension 0.5 mg (2 mL) inhalation BID.RT #0 11/03/23 Unknown Rx for nebulization mL insulin glargine-yfgn 100 unit/mL 40 unit (0.4 mL) subcut DAILY #0 mL 11/03/23 Unknown Rx (3 mL) subcutaneous pen menthol 0.44 %-zinc oxide 20.6 % 1 applic topical BID #0 grams 11/03/23 Unknown Rx topical ointment (Calmoseptine) nystatin 100,000 unit/gram topical 1 applic topical TID #0 grams 11/03/23 Unknown Rx powder (Nyamyc) potassium chloride 20 mEq 20 meq PO BIDCM #0 tabs 11/03/23 Unknown Rx tablet,extended release(part/cryst) amiodarone 200 mg tablet 200 mg PO BID 11/29/23 Unknown History ascorbic acid (vitamin C) 250 mg 500 mg PO DAILY 11/29/23 Unknown History tablet furosemide 40 mg tablet 40 mg PO BID 11/29/23 Unknown History insulin degludec 200 unit/mL (3 94 unit subcut DAILY 11/29/23 Unknown History mL) subcutaneous pen (Tresiba FlexTouch U-200 insulin) metformin 500 mg tablet,extended 500 mg PO BID 11/29/23 Unknown History release 24 hr semaglutide 2 mg/dose (8 mg/3 mL) 2 mg subcut QWEEK 11/29/23 Unknown History subcutaneous pen injector (Ozempic) Allergy/AdvReac Type Severity Reaction Status Date / Time ibuprofen (From Nuprin) Allergy Unknown Verified 11/30/23 10:00 Family History Mother Diabetes Father Cirrhosis of liver Alcoholism Surgical History History of right inguinal hernia repair H/O colectomy History of repair of inguinal hernia History of bladder surgery History of tonsillectomy and adenoidectomy History of right inguinal hernia repair S/P AVR (aortic valve replacement) Social History household members: children Smoking Status: Former smoker how long ago did patient quit smoking: Quit ~ 20 yrs prior, smoked age 15 until quit ~ 2 ppd. alcohol intake: never substance use type: does not use Vital Signs Vital Signs Vital Signs: 12/07/23 13:39 Temperature 97.2 F L Temperature Source Temporal Pulse Rate 60 Respiratory Rate 16 Blood Pressure 167/86 H Blood Pressure Mean 113 Blood Pressure Source Monitor Blood Pressure Position Sitting Blood Pressure Location Right Arm Oxygen Delivery Method Room Air Weight Weight: 348 lb Body Mass Index (BMI) 44.6 Physical Exam Const alert, oriented x3 and no apparent distress Constitutional Narrative: The patient is morbidly obese. His BMI is 44.6. The patient is alert, conversant, and appropriate. General Appearance: cooperative, comfortable and well developed Orientation / Consciousness: awake, oriented to person, oriented to place and oriented to time Exam Limitations: no limitations HEENT normocephalic and head/scalp atraumatic Head and Scalp: normal to inspection, normocephalic and atraumatic External Ear: external ears normal Eyes EOMs intact bilaterally General Eye: normal appearance of both eyes Neck full ROM Resp normal respiratory effort, normal air movement, no retractions, no use of accessory muscles and clear to auscultation bilaterally Effort and Inspection: able to speak in complete sentences Cardio regular rate, regular rhythm, S1 normal heart sound and S2 normal heart sound Extremity General Extremity: Negative for clubbing or cyanosis Skin Wound Narrative: Severe swelling, edema, and lymphedema are noted in the patient's lower extremities bilaterally. Hyperpigmentation and lipodermatosclerosis are noted in the gaiter areas bilaterally. Ulcerations are noted on the anterolateral aspect of the patient's right calf. The most superior of the ulcerations is the smallest, and extends only into the subcutaneous adipose tissue. There is a moderate amount of necrotic and nonviable tissue. The 2 inferior ulcerations are extremely large, and extend through all dermal and subcutaneous layers, and well into the muscle layers. There is a large degree of undermining of these 2 large ulcerations, and they are connected within the subcutaneous and intramuscular space with a large overlying skin bridge. There is a large amount of necrotic and nonviable tissue. The disagreeable odor noted last week is no longer evident. Neuro oriented x3, CN's II-XII intact bilaterally, moves all extremities and no focal motor deficits Sensorium / Orientation: awake, alert, oriented to person, oriented to place and oriented to time Psych Appearance: grossly normal and appropriate Attitude: calm Activity / Motor Behavior: appropriate eye contact Speech: normal speech Mood & Affect: euthymic mood Thought Process: normal thought process Thought Content: normal thought content Attention / Concentration: attention grossly intact Debridement Note Debridement Note Wound debrided: Right lateral calf ulcerations Laterality: Right Type of Debridement: Excisional debridement Anesthesia Used: 5% Lidocaine Gel Depth: Down to and including healthy tissue, in the subcutaneous layer and to muscle Percentage of wound debrided: 90 Instrument Used: 5mm curette, Forceps and - (Scissors) Tissue Removed: Necrotic and nonviable tissue, gangrenous tissue, devitalized tissue Severity: Necrosis of Muscle Amount of bleeding with debridement: Mild Bleeding Controlled with: Compression and gauze Patient tolerated procedure: Patient tolerated procedure well Post-Debridement Measurements and Additional Note: Post-Debridement Measurements/Treatment - Nurse 1 - General Ulcer Assessment Start: 11/30/23 10:00 Freq: Status: Active Protocol: GALE Activity Type Activity Date Activity User E-sign Co-sign Detail Recorded Client Recorded Date Recorded By Document 11/30/23 10:01 KW wound center 11/30/23 10:31 KW Document 12/07/23 13:39 wound center 12/07/23 14:07 KW 11/30/23 12/07/23 10:01 13:39 - Today's Visit Information Type of service Initial Visit Follow-up Visit (Physician/[facility]AL[facility] ) Arrival Mode Wheelchair Ambulatory,Cane Patient Identification Verified (Name & Yes Yes ) Finger Stick Blood Sugar(mg/dl) (if 140 143 indicated): Blood Sugar Stated by Stated by Patient Patient Height and Weight Height 6 ft 2 in Weight 348 lb Weight in Pounds 348.0 lbs Body Mass Index (BMI) 44.6 44.6 BMI Classification Obese Obese BSA - Victorina 2.75 Vital Signs Temperature (97.8 F-99.1 F) 97.2 F L 97.2 F L Temperature Source Temporal Temporal Pulse Rate (60-100) 49 L 60 Pulse Location Monitor Monitor Respiratory Rate (12-18) 18 16 Respiratory rate source Observation Observation Oxygen Delivery Method Room Air Room Air Blood Pressure (90/60-120/80) 123/48 H 167/86 H Blood Pressure Mean 73 113 Source Monitor Monitor Position Semi-Fowlers Sitting Blood Pressure Location Left Arm Right Arm History Since Last Visit- (Skip if this is Patient's initial visit) Have you changed medications since your No last visit? Any new allergies or adverse reactions No Had a fall/change in ADL's that may No increase risk of falls Signs or symptoms of abuse and/or No neglect since last visit Have you been in the hospital since your No last visit? Has dressing in place as prescribed Yes Has compression in place as prescribed No Has offloadiing in place as prescribed No Experienced any changes in pain level or No management Left Footwear Slipper Regular Shoe Right Footwear Slipper Regular Shoe Pain Scale: 0-10 Numeric Is Patient Pain Free? Yes Yes Lower Extremity Assessment/ Foot Assessment/ Toe Nail Assessment Left -Polpliteal Pulses Palpable No -Popliteal Doppler Monophasic -Posterior Tibial Palpable No -Posterior Tibial Doppler Monophasic -Dorsalis Pedis Palpable No -Dorsalis Pedis Doppler Multiphasic -Extremity Color Hyperpigmented -Hair Growth on Legs No -Hair Growth on Toes No -Temperature of Extremity Cool -Capillary Refill Less than 3 Seconds -Thick Yes -Discolored Yes -Deformed Yes -Improper Length & Hygeine No Right -Polpliteal Pulses Palpable No -Posterior Tibial Palpable No -Posterior Tibial Doppler Monophasic -Dorsalis Pedis Palpable No -Dorsalis Pedis Doppler Monophasic -Extremity Color Hemosiderin -Hair Growth on Legs No -Hair Growth on Toes No -Temperature of Extremity Cool -Capillary Refill Less than 3 Seconds -Thick Yes -Discolored Yes -Deformed Yes -Improper Length & Hygeine No Communication Assessment Preferred language Danish Pediatric Sports Medicine Specialist Required No Able to Read Yes Able to Write Yes Communication Tools None Caregiver Communication Skills No Impairment Impairment Right Hearing Abillity Hard of Hearing Left Hearing Abillity Hard of Hearing Visual Assistive Devices Glasses Teaching Assessment Preferences Verbal,Written, Demonstration Barriers to Learning None Readiness To Learn Excellent Willingness to Engage in Self Management High Activies Readiness to Engage in Self Management High Activities Anxiety Level Calm Cooperation Cooperative Perception Coherent Interest in Health Problem Asks Questions Education Importance Acknowledges Need Does Patient Smoke tobacco or other No substances Is Patient Diabetic Yes Functional Assessment Recent Decline in Ability to Perform Ambulation, Bathing,Lower Body Dressing, Transferring Culture/Yazidi/Network Developer Cultural/Yazidi Needs that may affect No Treatment Plan Would you allow our hospital preschool aide to No meet you for the purpose of spiritual/ emotional support? Network Developer to contact place of orthodoxy No WC - Nurse 1 - General Ulcer Measurement Start: 11/30/23 10:00 Freq: Status: Active Protocol: Activity Type Activity Date Activity User E-sign Co-sign Detail Recorded Client Recorded Date Recorded By Document 11/30/23 10:01 KW wound center 11/30/23 10:31 KW Document 12/07/23 13:39 KW wound center 12/07/23 14:07 KW 11/30/23 12/07/23 10:01 13:39 Wound Center Nurse 1 4. RLE lateral inferior- lower -Combined with other wound No -Current Size (cm) - Length 8 1.7 -Current Size (cm) - Width 8.7 3 -Current Size (cm) - Depth 1.6 0.3 -Total Square Cm 69.6 5.1 -Photo Taken Yes -Tunneling No -Undermining/Tunneling Yes -Undermining/Tunneling Starts (O'clock 1 ) -Undermining/Tunneling Ends (O'clock) 2 -Maximum Distance (cm) 2 -Circular Undermining No -Exudate Amt Large Large -Exudate Type Serosanguineous Serosanguineous -Wound Margin Thickened & Thickened Rolled Under -Granulation Amt Medium (34-66%) Small (1-33%) -Granulation Quality [place] Red -Slough/Fibrin Yes -Necrosis Amt Medium (34-66%) Medium (34-66%) -Necrotic Tissue Type Eschar Adherent Slough -Structure Exposed Fascia -Texture (Mariza-wound Skin Appearance) Assessed Assessed -Moisture (Mariza-wound Skin Appearance) Assessed, Assessed, Maceration Weeping -Color (Mariza-wound Skin Appearance) Assessed, Assessed, Hemosiderin Erythema Staining -Temperature (Mariza-wound Skin No Abnormality No Abnormality Appearance) (Pt Warm) (Pt Warm) -Tenderness on Palpation (Mariza-wound No No Skin Appearance) -Ulcer Cleansing Wound Cleanser Soap and Water -Foul Odor after Cleansing No No -Anesthetic Used 4% Lidocaine 4% Lidocaine Solution Solution 3. RLE lateral middle -Combined with other wound No -Current Size (cm) - Length 5 5.5 -Current Size (cm) - Width 7.5 6 -Current Size (cm) - Depth 1.4 2.4 -Total Square Cm 37.5 33.0 -Photo Taken Yes -Tunneling No -Undermining/Tunneling Yes -Undermining/Tunneling Starts (O'clock 3 ) -Undermining/Tunneling Ends (O'clock) 2 -Circular Undermining Yes -Exudate Amt Large Large -Exudate Type Serosanguineous Serosanguineous -Wound Margin Thickened & Thickened Rolled Under -Granulation Amt Medium (34-66%) Medium (34-66%) -Granulation Quality [place] Red -Slough/Fibrin Yes -Necrosis Amt Medium (34-66%) Large (67-100%) -Necrotic Tissue Type Adherent Slough Adherent Slough -Structure Exposed Fascia,N/A -Texture (Mariza-wound Skin Appearance) Assessed Assessed -Moisture (Mariza-wound Skin Appearance) Assessed, Assessed, Maceration Weeping,Dry/ Scaly -Color (Mariza-wound Skin Appearance) Hemosiderin Assessed, Staining Erythema -Temperature (Mariza-wound Skin No Abnormality No Abnormality Appearance) (Pt Warm) (Pt Warm) -Tenderness on Palpation (Mariza-wound No No Skin Appearance) -Ulcer Cleansing Wound Cleanser Soap and Water -Foul Odor after Cleansing No No -Anesthetic Used 4% Lidocaine 4% Lidocaine Solution Solution 2. RLE lateral superior -Combined with other wound No -Current Size (cm) - Length 2 8 -Current Size (cm) - Width 3.4 8.5 -Current Size (cm) - Depth 0.2 1.7 -Total Square Cm 6.8 68.0 -Photo Taken Yes -Tunneling No -Undermining/Tunneling No -Circular Undermining No -Exudate Amt Small Large -Exudate Type Serosanguineous Serosanguineous -Wound Margin Distinct, Thickened Outline Attached -Granulation Amt Medium (34-66%) Small (1-33%) -Granulation Quality [place] Red -Slough/Fibrin Yes -Necrosis Amt Medium (34-66%) Large (67-100%) -Necrotic Tissue Type Eschar Adherent Slough -Structure Exposed N/A -Texture (Mariza-wound Skin Appearance) Assessed Assessed -Moisture (Mariza-wound Skin Appearance) Assessed Assessed,Dry/ Scaly -Color (Mariza-wound Skin Appearance) Hemosiderin Assessed, Staining Erythema -Temperature (Mariza-wound Skin No Abnormality No Abnormality Appearance) (Pt Warm) (Pt Warm) -Tenderness on Palpation (Mariza-wound No No Skin Appearance) -Ulcer Cleansing Wound Cleanser Soap and Water -Foul Odor after Cleansing No No -Anesthetic Used 4% Lidocaine 4% Lidocaine Solution Solution Lower Limb Edema Present Yes Right Calf (cm) 57 Right Ankle (cm) 31 Left Calf (cm) 51.5 Left Ankle (cm) 32.5 WC - Nurse 2 - General Ulcer CM Notes Start: 11/30/23 10:00 Freq: Status: Active Protocol: Activity Type Activity Date Activity User E-sign Co-sign Detail Recorded Client Recorded Date Recorded By Document 11/30/23 10:45 [place] [id number] 11/30/23 11:16 DS Document 12/07/23 15:07 DS [id number] 12/07/23 15:18 DS 11/30/23 12/07/23 10:45 15:07 Wound Center Nurse 2 4. RLE lateral inferior- lower -Time 10:45 15:15 -Correct Patient Yes Yes -Correct Side, Site, Position Yes Yes -Correct Procedure Yes Yes -Procedure Performed Yes Yes -Type of Procedure Debridement Debridement -Clinical Debridement Muscle / Fascia Muscle / Fascia -Tissue Removed Muscle,Fascia Muscle,Fascia -Post Debridement (cm) - Length 8.0 8.0 -Post Debridement (cm) - Width 8.2 7.5 -Post Debridement (cm) - Depth 3.5 2.8 -Total Square (Post) (cm) 65.60 60.00 -Area of Debridement (cm) - Length 8.0 8.0 -Area of Debridement (cm) - Width 8.2 7.5 -Total Square (Area) (cm) 65.60 60.00 -Tunneling No No -Undermining/Tunneling Yes Yes -Undermining/Tunneling Starts (O'clock 11 11 ) -Undermining/Tunneling Ends (O'clock) 5 7 -Maximum Distance (cm) 6 8.3 -Wound/Ulcer Outcome Not Healed Not Healed -Ulcer Cleansing Rinsed/ Irrigated with Saline -Bleeding Controlled with Pressure Pressure -Treatment Response Procedure Procedure Tolerated Well Tolerated Well -Debridement - Muscle / Fascia, 1st Yes Yes 20sq cm -Debridement, Muscle/Fascia, ea addt'l 4 4 20sq cm or part thereof 3. RLE lateral middle -Time 11:07 15:14 -Correct Patient Yes Yes -Correct Side, Site, Position Yes Yes -Correct Procedure Yes Yes -Procedure Performed Yes Yes -Type of Procedure Debridement Debridement -Clinical Debridement Muscle / Fascia Muscle / Fascia -Tissue Removed Muscle,Fascia Muscle,Fascia -Post Debridement (cm) - Length 4.8 5.5 -Post Debridement (cm) - Width 6.0 5.0 -Post Debridement (cm) - Depth 3.0 3.0 -Total Square (Post) (cm) 28.80 27.50 -Area of Debridement (cm) - Length 4.8 5.5 -Area of Debridement (cm) - Width 6.0 5.0 -Total Square (Area) (cm) 28.80 27.50 -Tunneling No No -Tunneling Position (O'clock) 3 -Tunneling Distance (cm) 8.4 -Undermining/Tunneling Yes Yes -Undermining/Tunneling Starts (O'clock 12 11 ) -Undermining/Tunneling Ends (O'clock) 5 6 -Maximum Distance (cm) 10 8.0 -Wound/Ulcer Outcome Not Healed Not Healed -Ulcer Cleansing Rinsed/ Rinsed/ Irrigated with Irrigated with Saline Saline -Bleeding Controlled with Pressure Pressure -Treatment Response Procedure Procedure Tolerated Well Tolerated Well -Debridement - Muscle / Fascia, 1st No No 20sq cm 2. RLE lateral superior -Time 11:03 15:12 -Correct Patient Yes Yes -Correct Side, Site, Position Yes Yes -Correct Procedure Yes Yes -Procedure Performed Yes Yes -Type of Procedure Debridement Debridement -Clinical Debridement Subcutaneous Muscle / Fascia -Tissue Removed Subcutaneous Muscle,Fascia -Post Debridement (cm) - Length 1.5 1.5 -Post Debridement (cm) - Width 3.0 3.0 -Post Debridement (cm) - Depth 0.3 0.5 -Total Square (Post) (cm) 4.50 4.50 -Area of Debridement (cm) - Length 1.5 1.5 -Area of Debridement (cm) - Width 3.0 3.0 -Total Square (Area) (cm) 4.50 4.50 -Tunneling No No -Undermining/Tunneling No No -Circular Undermining No No -Wound/Ulcer Outcome Not Healed Not Healed -Ulcer Cleansing Rinsed/ Rinsed/ Irrigated with Irrigated with Saline Saline -Bleeding Controlled with Pressure Pressure -Treatment Response Procedure Procedure Tolerated Well Tolerated Well -Debridement - Subq, 1st 20sq cm Yes -Debridement - Muscle / Fascia, 1st No 20sq cm Pain Scale: 0-10 Numeric Is Patient Pain Free? 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: CODE(S): L97.913 - Non-pressure chronic ulcer of unspecified part of right lower leg with necrosis of muscle (2) Ulcer with necrosis of muscle: (3) Right leg swelling: CODE(S): M79.89 - Other specified soft tissue disorders (4) Left leg swelling: CODE(S): M79.89 - Other specified soft tissue disorders (5) Edema of right lower leg: CODE(S): R60.0 - Localized edema (6) Edema of left lower leg: CODE(S): R60.0 - Localized edema (7) Morbid obesity with BMI of 40.0-44.9, adult: CODE(S): E66.01 - Morbid (severe) obesity due to excess calories; Z68.41 - Body mass index [BMI] 40.0-44.9, adult (8) DM2 (diabetes mellitus, type 2): CODE(S): E11.9 - Type 2 diabetes mellitus without complications QUALIFIERS: Diabetes mellitus complication status: with circulatory complication (9) S/P AVR (aortic valve replacement): CODE(S): Z95.2 - Presence of prosthetic heart valve (10) History of deep vein thrombosis (DVT) of lower extremity: CODE(S): Z86.718 - Personal history of other venous thrombosis and embolism (11) Lymphedema of right lower extremity: CODE(S): I89.0 - Lymphedema, not elsewhere classified (12) Lymphedema of left lower extremity: CODE(S): I89.0 - Lymphedema, not elsewhere classified (13) History of right inguinal hernia repair: CODE(S): Z98.890 - Other specified postprocedural states; Z87.19 - Personal history of other diseases of the digestive system (14) Impaired mobility: CODE(S): Z74.09 - Other reduced mobility (15) Recurrent right inguinal hernia: CODE(S): K40.91 - Unilateral inguinal hernia, without obstruction or gangrene, recurrent (16) History of congestive heart failure: CODE(S): Z86.79 - Personal history of other diseases of the circulatory system (17) Impaired mobility and ADLs: CODE(S): Z74.09 - Other reduced mobility; Z78.9 - Other specified health status (18) Obstructive sleep apnea on CPAP: CODE(S): G47.33 - Obstructive sleep apnea (adult) (pediatric) (19) Debility: CODE(S): R53.81 - Other malaise (20) Diverticulosis: CODE(S): K57.90 - Diverticulosis of intestine, part unspecified, without perforation or abscess without bleeding (21) Hiatal hernia: CODE(S): K44.9 - Diaphragmatic hernia without obstruction or gangrene (22) Hypertension: CODE(S): I10 - Essential (primary) hypertension (23) Blood loss anemia: CODE(S): D50.0 - Iron deficiency anemia secondary to blood loss (chronic) (24) Atrial fibrillation: CODE(S): I48.91 - Unspecified atrial fibrillation (25) BPH (benign prostatic hyperplasia): CODE(S): N40.0 - Benign prostatic hyperplasia without lower urinary tract symptoms (26) Chronic venous insufficiency: CODE(S): I87.2 - Venous insufficiency (chronic) (peripheral) (27) Atrial fibrillation/flutter: CODE(S): I48.91 - Unspecified atrial fibrillation; I48.92 - Unspecified atrial flutter (28) Valvular heart disease: CODE(S): I38 - Endocarditis, valve unspecified PLAN: Plan This is a 68-year-old morbidly obese diabetic male with multiple pre-existing medical problems, which have been listed elsewhere. He presented with 3 ulcerations on the right anterolateral calf, 2 of which are quite large and necrotic, and with extension into the muscular layers. There is a large amount of undermining. The ulcerations were initially malodorous, with suspicion of infection. Wound cultures were obtained at the patient's initial visit, the results of which were positive for Escherichia coli, Proteus mirabilis, Pseudomonas aeruginosa, Enterococcus faecalis, Bacteroides fragilis, and Prevotella disiens. The patient has a PICC catheter inserted into his left upper arm, and is receiving vancomycin and Zosyn intravenously. Review of sensitivities, reveals that E. coli, Proteus mirabilis, Enterococcus faecalis, and Bacteroides fragilis should have appropriate coverage based on the current antibiotic regimen. However, the results of the patient's most recent cultures is to be forwarded to the patient's other providers who are managing his antibiotic coverage. These providers include Dr. Kathleen Herzog and Dr. Gregg Reyna. We will defer to the patient's other providers for appropriate antibiotic management. It is noted that the other providers have been obtaining vancomycin serum levels for monitoring purposes. We are to continue the use of Dakin's?moistened gauze packing topically within the patient's right calf ulceration. This will be changed as necessary, or at least daily. Compression will be initiated by means of Celso wrap's, which will be applied to the lower extremities bilaterally. The patient has been encouraged to elevate his lower extremities as much as possible. He has been advised to refrain from prolonged idle sitting. Optimization of glycemic control and nutritional intake have been recommended. He is to return in 1 week for reassessment. He is to seek urgent medical attention should his condition worsen. We are to seek consultation with Dr. Aaron Shannon, D.P.M., for evaluation and consideration of surgical debridement in the operating room setting, which is felt to be warranted for elimination of the large amount of necrotic and nonviable tissue, with possible unroofing of the undermined portion of the ulceration. It should be noted that the severity of his ulcerations and his pre-existing medical problems are felt to represent a poor prognosis for limb salvage. At present, however, all measures are to be implemented for the purpose of limb salvage. Total time: 28 minutes
== END 2023-12-10 23:59 | disposition home or self-care (01) ==
LOC: WC 14:00
PROVIDERS: PCP Nurse Practitioner Primary Care; Visit Provider Surgery
DX: L97.913 Non-pressure chronic ulcer of unspecified part of right lower leg with necrosis of muscle (principal); I11.0 Hypertensive heart disease with heart failure; I48.91 Unspecified atrial fibrillation; I48.92 Unspecified atrial flutter; E66.01 Morbid (severe) obesity due to excess calories; Z68.41 Body mass index [BMI] 40.0-44.9, adult; E11.59 Type 2 diabetes mellitus with other circulatory complications; G47.33 Obstructive sleep apnea (adult) (pediatric); G89.29 Other chronic pain; D50.0 Iron deficiency anemia secondary to blood loss (chronic); N40.0 Benign prostatic hyperplasia without lower urinary tract symptoms; I87.2 Venous insufficiency (chronic) (peripheral); K57.90 Diverticulosis of intestine, part unspecified, without perforation or abscess without bleeding; Z87.891 Personal history of nicotine dependence; Z74.09 Other reduced mobility; R53.81 Other malaise; K44.9 Diaphragmatic hernia without obstruction or gangrene; I89.0 Lymphedema, not elsewhere classified; K40.91 Unilateral inguinal hernia, without obstruction or gangrene, recurrent; I38 Endocarditis, valve unspecified; Z95.2 Presence of prosthetic heart valve; Z86.718 Personal history of other venous thrombosis and embolism; M79.89 Other specified soft tissue disorders
CPT/HCPCS: 11042; 11043; 11046; 99214; G0463

== ENCOUNTER 2023-12-21 15:30 | Outpatient (RCR) | payer MEDICARE, SELFPAY ==
[2023-12-11 01:23] VITALS: BP 167/86; PULSE 60; RESP 16; TEMP 36.2; BMI 44.6
--- NOTE | 2023-12-14 10:04 | ART_ITS ---
Reason For Study: PVD Procedure A bilateral lower extremity continuous wave Doppler with analog waveform analysis,segmental pressures,and ankle brachial indexes without exercise. Left Segmental Pressures Left posterior tibial artery = 183mmHg. Left dorsalis pedis artery = 208mmHg. Left digit = 124 mmHg. The left dorsalis pedis waveforms are triphasic. The left posterior tibial artery waveforms are triphasic. Right Segmental Pressures Right brachial= 141mmHg. Right posterior tibial artery = 163mmHg. Right dorsalis pedis artery = 147mmHg. Right digit = 114 mmHg. The right dorsalis pedis waveforms are triphasic. The right posterior tibial artery waveforms are triphasic. Indices The right ankle brachial index by the dorsalis pedis is 1.04. The right ankle brachial index by the posterior tibial artery is 1.16. The right digital-brachial index is 0.81. The left ankle brachial index by the dorsalis pedis is 1.48. The left ankle brachial index by the posterior tibial artery is 1.30. The left digital-brachial index is 0.88. VL/Lower Ext Art Exam w/o Exercis Interpretation Summary Triphasic Doppler waveforms are noted at ankle level bilaterally. Pulse-volume recordings appear satisfactory at all levels bilaterally. The resting right ankle-brachial index is normal. The resting left ankle-brachial index is supra-normal. Digital-brachial indices are normal bilaterally. There is evidence of arterial calcification at ankle level on the left. There i s no evidence of significant arterial occlusive disease in the lower extremities bilaterally. Ordering Physician: Moshe Kitchen Referring Physician: Hiren Benites Performed By: Sheri Jones RVT
[2023-12-15 15:25] VITALS: BP 126/75; PULSE 50; RESP 16; TEMP 36.4; BMI 44.6
--- NOTE | 2023-12-15 16:47 | PN.PCM_ITS ---
History of Present Illness Date of Service: 12/15/23 Chief Complaint: Ulcerations of the right lateral calf with large areas of necrosis, and extension into muscle History of Wound: This is a 68-year-old morbidly obese diabetic male who presented with 3 large ulcerations on the right lateral calf. According to the patient, they had been present for approximately 6 weeks. The origin of the ulcerations is uncertain, though they may have resulted from a fall which the patient experienced while at home. The patient has multiple pre-existing medical problems, which have been listed below. He had recently been treated for blood loss anemia from a gastrointestinal source. He is a resident of [facility] in [place], [place]. He has a history of bilateral lower extremity deep vein thrombosis, and a venous duplex examination performed on October 22, 2023, revealed chronic changes in the right lower extremity deep venous system, with a normal superficial venous system. Management of the patient's wound had been by means of the [facility], Dr. Reyna, from [place], [place]. Approximately 1 week prior to presentation, the patient underwent placement of a left upper extremity PICC catheter and has been receiving vancomycin and Zosyn intravenously. The patient had been on chronic systemic anticoagulation with Eliquis until recently, which was discontinued as a result of his recent gastrointestinal bleeding. The patient underwent laboratory studies recently, the results of which are as follows: Glucose 106, sodium 145, potassium 4.9, chloride 107, BUN 30, creatinine 1.3, calcium 9.0, white blood count 5.4, hemoglobin 10.0, hematocrit 32.3, platelets 141,000, sed rate 35, D-dimer 1.81, C-reactive protein 37.6. A chest x-ray on October 28, 2023, revealed no acute abnormalities. The patient is not active. He claims to sleep on a flat mattress at night. Subjective Subjective Mr. Gutierrez is a 68-year-old diabetic male presenting to the wound care center today for follow-up evaluation of right lateral calf ulcerations. Patient was seen by Dr. Kitchen and referred to Dr. Montero for surgical consultation and evaluation. Patient currently resides at [facility]. He is currently on IV antibiotics via PICC line receiving meropenem. Patient has been getting dressing changes consistent with Dakin solution dry sterile dressing and compression wraps. Patient's blood sugar has been under control. He denies much pain to the right lower extremity. He is very understanding that he needs surgical intervention at this time. He denies any new onset of trauma. Denies constitutional symptoms. No other pedal complaints at this time. Objective Data Objective Data Vital Signs: Vital Signs Temp Pulse Resp BP O2 Del Method 97.6 F L 50 L 16 126/75 H Room Air 12/15/23 15:25 12/15/23 15:25 12/15/23 15:25 12/15/23 15:25 12/15/23 15:25 Oxygen Delivery Method Room Air Weight: 157.85 kg Body Mass Index (BMI) 44.6 Radiography Diagnostic Testing: Radiology Impression Extremity Arterial Study 12/14/23 10:04 Interpretation Summary Triphasic Doppler waveforms are noted at ankle level bilaterally. Pulse-volume recordings appear satisfactory at all levels bilaterally. The resting right ankle-brachial index is normal. The resting left ankle-brachial index is supra-normal. Digital-brachial indices are normal bilaterally. There is evidence of arterial calcification at ankle level on the left. There is no evidence of significant arterial occlusive disease in the lower extremities bilaterally. Ordering Physician: Moshe Kitchen Referring Physician: Hiren Benites Performed By: Sheri Jones RVT Physical Exam Narrative Vascular: DP and PT pulses are palpable to the right lower extremity. Nonpitting edema appreciated to the right lower extremity. Skin temperature gradient is warm to warm from proximal ankles to distal digit. No focal increase appreciated. Neurological: Light touch intact. Patient response to painful stimuli. Protective sensation is diminished. Dermatological: Multiple full-thickness ulceration appreciated to right lateral leg. Full-thickness ulceration superiorly measures 1.5 x 2.5 x 3.2 cm. Full- thickness middle ulceration measures 4.5 x 6.0 x 4.0 cm. Full-thickness inferior ulceration measures 7.7 x 7.5 x 2.5 cm. Excision debridement down to and including muscle of the full-thickness ulceration to the right superior leg with a number 5 mm dermal curette without incident. Predebridement measurement is 1.4 x 2.3 x 1.0 cm. Postdebridement measurement is 1.5 x 2.5 x 3.2 cm. Excisional debridement down to and including muscle of the full-thickness ulceration to the right middle leg with a number 5 mm dermal curette without incident. Predebridement measurement is 4.0 x 5.8 x 3.5 cm. Postdebridement measurement is 4.5 x 6.0 x 4.0 cm. Excisional debridement down to and including muscle of the full-thickness ulceration to the right inferior leg with a number 5 mm dermal curette without incident. Predebridement measurement is 7.5 by 7.3 x 2.3 cm. Postdebridement measurement is 7.7 x 7.5 x 2.5 cm. Musculoskeletal: Mild pain to palpation to all 3 full-thickness ulceration. No pain with calf pression. Debridement Note Debridement Note Debridement Free Text: Excision debridement down to and including muscle of the full-thickness ulceration to the right superior leg with a number 5 mm dermal curette without incident. Predebridement measurement is 1.4 x 2.3 x 1.0 cm. Postdebridement measurement is 1.5 x 2.5 x 3.2 cm. Excisional debridement down to and including muscle of the full-thickness ulceration to the right middle leg with a number 5 mm dermal curette without incident. Predebridement measurement is 4.0 x 5.8 x 3.5 cm. Postdebridement measurement is 4.5 x 6.0 x 4.0 cm. Excisional debridement down to and including muscle of the full-thickness ulceration to the right inferior leg with a number 5 mm dermal curette without incident. Predebridement measurement is 7.5 by 7.3 x 2.3 cm. Postdebridement measurement is 7.7 x 7.5 x 2.5 cm. Post-Debridement Measurements and Additional Note: Post-Debridement Measurements/Treatment CODY - Nurse 1 - General Ulcer Assessment Start: 12/15/23 15:25 Freq: Status: Active Protocol: LOWEXT Activity Type Activity Date Activity User E-sign Co-sign Detail Recorded Client Recorded Date Recorded By Document 12/15/23 15:25 [facility] [id number] 12/15/23 15:43 [facility] 12/15/23 15:25 - Today's Visit Information Type of service Follow-up Visit (Physician/[employer] ) Arrival Mode Ambulatory,Cane Transfer Assistance None Patient Identification Verified (Name & Yes ) Patient Requires Transmission-Based No Precautions Height and Weight Body Mass Index (BMI) 44.6 BMI Classification Obese Vital Signs Temperature (97.8 F-99.1 F) 97.6 F L Temperature Source Temporal Pulse Rate (60-100) 50 L Pulse Location Monitor Respiratory Rate (12-18) 16 Respiratory rate source Observation Oxygen Delivery Method Room Air Blood Pressure (90/60-120/80) 126/75 H Blood Pressure Mean (mm Hg) 92 Source Monitor Position Sitting Blood Pressure Location Right Arm History Since Last Visit- (Skip if this is Patient's initial visit) Have you changed medications since your No last visit? Any new allergies or adverse reactions No Had a fall/change in ADL's that may No increase risk of falls Signs or symptoms of abuse and/or No neglect since last visit Have you been in the hospital since your No last visit? Has dressing in place as prescribed Yes Has compression in place as prescribed Yes Has offloadiing in place as prescribed N/A Experienced any changes in pain level or No management Left Footwear Diabetic Shoe Right Footwear Diabetic Shoe Pain Scale: 0-10 Numeric Is Patient Pain Free? Yes - Nurse 1 - General Ulcer Measurement Start: 12/15/23 15:25 Freq: Status: Active Protocol: Activity Type Activity Date Activity User E-sign Co-sign Detail Recorded Client Recorded Date Recorded By Document 12/15/23 15:25 [facility] [id number] 12/15/23 15:43 [facility] 12/15/23 15:25 Wound Center Nurse 1 4. RLE lateral inferior- lower -Current Size (cm) - Length 7.6 -Current Size (cm) - Width 7.5 -Current Size (cm) - Depth 1.7 -Total Square Cm 57.00 -Date of Last Picture (Recall this 12/15/23 field) -Undermining/Tunneling Yes -Undermining/Tunneling Starts (O'clock 10 ) -Undermining/Tunneling Ends (O'clock) 4 -Maximum Distance (cm) 5 -Exudate Amt Large -Exudate Type Serosanguineous -Wound Margin Thickened -Granulation Amt Medium (34-66%) -Granulation Quality Leslie -Necrosis Amt Large (67-100%) -Necrotic Tissue Type Adherent Slough -Texture (Mariza-wound Skin Appearance) Assessed -Moisture (Mariza-wound Skin Appearance) Assessed -Color (Mariza-wound Skin Appearance) Assessed, Erythema -Temperature (Mariza-wound Skin No Abnormality Appearance) (Pt Warm) -Tenderness on Palpation (Mariza-wound No Skin Appearance) -Ulcer Cleansing Soap and Water -Foul Odor after Cleansing No -Anesthetic Used 4% Lidocaine Solution 3. RLE lateral middle -Current Size (cm) - Length 5 -Current Size (cm) - Width 5.7 -Current Size (cm) - Depth 2.7 -Total Square Cm 28.5 -Date of Last Picture (Recall this 12/15/23 field) -Tunneling Yes -Tunneling Position (O'clock) 2 -Tunneling Distance (cm) 6.3 -Exudate Amt Large -Exudate Type Serosanguineous -Wound Margin Distinct, Outline Attached -Granulation Amt Small (1-33%) -Granulation Quality Leslie -Necrosis Amt Large (67-100%) -Necrotic Tissue Type Adherent Slough -Texture (Mariza-wound Skin Appearance) Assessed -Moisture (Mariza-wound Skin Appearance) Assessed,Dry/ Scaly -Color (Mariza-wound Skin Appearance) Assessed, Erythema -Temperature (Mariza-wound Skin No Abnormality Appearance) (Pt Warm) -Tenderness on Palpation (Mariza-wound No Skin Appearance) -Ulcer Cleansing Soap and Water -Foul Odor after Cleansing No -Anesthetic Used 4% Lidocaine Solution 2. RLE lateral superior -Current Size (cm) - Length 1.6 -Current Size (cm) - Width 2.4 -Current Size (cm) - Depth 0.5 -Total Square Cm 3.84 -Date of Last Picture (Recall this 12/15/23 field) -Exudate Amt Large -Exudate Type Serosanguineous -Wound Margin Distinct, Outline Attached -Granulation Amt Medium (34-66%) -Granulation Quality Leslie -Necrosis Amt Large (67-100%) -Necrotic Tissue Type Adherent Slough -Texture (Mariza-wound Skin Appearance) Assessed -Moisture (Mariza-wound Skin Appearance) Assessed,Dry/ Scaly -Color (Mariza-wound Skin Appearance) Assessed, Erythema -Temperature (Mariza-wound Skin No Abnormality Appearance) (Pt Warm) -Tenderness on Palpation (Mariza-wound No Skin Appearance) -Ulcer Cleansing Soap and Water -Foul Odor after Cleansing No -Anesthetic Used 4% Lidocaine Solution Right Calf (cm) 49.6 Right Ankle (cm) 29.4 WC - Nurse 2 - General Ulcer CM Notes Start: 12/15/23 15:25 Freq: Status: Active Protocol: Activity Type Activity Date Activity User E-sign Co-sign Detail Recorded Client Recorded Date Recorded By Document 12/15/23 16:08 [id number] 12/15/23 16:20 12/15/23 16:08 Wound Center Nurse 2 4. RLE lateral inferior- lower -Time 16:08 -Correct Patient Yes -Correct Side, Site, Position Yes -Correct Procedure Yes -Procedure Performed Yes -Type of Procedure Debridement -Clinical Debridement Muscle / Fascia -Tissue Removed Muscle,Fascia -Post Debridement (cm) - Length 7.7 -Post Debridement (cm) - Width 7.5 -Post Debridement (cm) - Depth 2.5 -Total Square (Post) (cm) 57.75 -Area of Debridement (cm) - Length 7.7 -Area of Debridement (cm) - Width 7.5 -Total Square (Area) (cm) 57.75 -Tunneling No -Undermining/Tunneling No -Circular Undermining No -Wound/Ulcer Outcome Not Healed -Ulcer Cleansing Rinsed/ Irrigated with Saline -Foul Odor after Cleansing No -Bioengineered Tissue No -Bleeding Controlled with Pressure -Treatment Response Procedure Tolerated Well -Offloading No -Debridement - Subq, 1st 20sq cm No -Debridement - Muscle / Fascia, 1st No 20sq cm 3. RLE lateral middle -Time 16:10 -Correct Patient Yes -Correct Side, Site, Position Yes -Correct Procedure Yes -Procedure Performed Yes -Type of Procedure Debridement -Clinical Debridement Muscle / Fascia -Tissue Removed Muscle,Fascia -Post Debridement (cm) - Length 4.5 -Post Debridement (cm) - Width 6 -Post Debridement (cm) - Depth 4 -Total Square (Post) (cm) 27.0 -Area of Debridement (cm) - Length 4.5 -Area of Debridement (cm) - Width 6 -Total Square (Area) (cm) 27.0 -Tunneling No -Undermining/Tunneling No -Circular Undermining No -Wound/Ulcer Outcome Not Healed -Ulcer Cleansing Rinsed/ Irrigated with Saline -Foul Odor after Cleansing No -Bioengineered Tissue No -Bleeding Controlled with Pressure -Treatment Response Procedure Tolerated Well -Offloading No -Debridement - Muscle / Fascia, 1st No 20sq cm 2. RLE lateral superior -Time 16:11 -Correct Patient Yes -Correct Side, Site, Position Yes -Correct Procedure Yes -Procedure Performed Yes -Type of Procedure Debridement -Clinical Debridement Muscle / Fascia -Tissue Removed Muscle,Fascia -Post Debridement (cm) - Length 1.5 -Post Debridement (cm) - Width 2.5 -Post Debridement (cm) - Depth 3.2 -Total Square (Post) (cm) 3.75 -Area of Debridement (cm) - Length 1.5 -Area of Debridement (cm) - Width 2.5 -Total Square (Area) (cm) 3.75 -Tunneling No -Undermining/Tunneling No -Circular Undermining No -Wound/Ulcer Outcome Not Healed -Ulcer Cleansing Rinsed/ Irrigated with Saline -Foul Odor after Cleansing No -Bioengineered Tissue No -Bleeding Controlled with Pressure -Treatment Response Procedure Tolerated Well -Offloading No -Debridement - Muscle / Fascia, 1st Yes 20sq cm -Debridement, Muscle/Fascia, ea addt'l 4 20sq cm or part thereof Pain Scale: 0-10 Numeric Is Patient Pain Free? Yes WC - Nurse 3 - General Ulcer D/C NN Start: 12/15/23 15:25 Freq: Status: Active Protocol: Activity Type Activity Date Activity User E-sign Co-sign Detail Recorded Client Recorded Date Recorded By Document 12/15/23 16:32 [facility] Wound center 12/15/23 16:35 KW 12/15/23 16:32 Wound Care Center Nurse 3 4. RLE lateral inferior- lower -Other Dressing DAKINS SOAKED GAUZE -Primary Dressing Covered/Secured with Dry Gauze & Roll Gauze, Secured with Tape 3. RLE lateral middle -Other Dressing DAKINS SOAKED GAUZE -Primary Dressing Covered/Secured with Dry Gauze & Roll Gauze 2. RLE lateral superior -Primary Dressing Applied Optilok 8x12 -Other Dressing DAKINS SOAKED GAUZE -Primary Dressing Covered/Secured with Dry Gauze & Roll Gauze, Secured with Tape -Optilok 8x12 1 BLE -Compression Wrap Celso Wrap Pain Scale: 0-10 Numeric Is Patient Pain Free? 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 All findings were discussed with the patient. All questions were answered to the patient's satisfaction. Excision debridement down to and including muscle of the full-thickness ulceration to the right superior leg with a number 5 mm dermal curette without incident. Predebridement measurement is 1.4 x 2.3 x 1.0 cm. Postdebridement measurement is 1.5 x 2.5 x 3.2 cm. Excisional debridement down to and including muscle of the full-thickness ulceration to the right middle leg with a number 5 mm dermal curette without incident. Predebridement measurement is 4.0 x 5.8 x 3.5 cm. Postdebridement measurement is 4.5 x 6.0 x 4.0 cm. Excisional debridement down to and including muscle of the full-thickness ulceration to the right inferior leg with a number 5 mm dermal curette without incident. Predebridement measurement is 7.5 by 7.3 x 2.3 cm. Postdebridement measurement is 7.7 x 7.5 x 2.5 cm. The right lower extremities were cleaned and patted dry. Ulcerations were packed with Dakin solution soaked gauze dry sterile dressing and a multilayer compression bandage applied right lower extremity. Please reinforce if necessary. We will begin authorization to the patient insurance to take the patient the operating room to perform an aggressive debridement to the roof of the skin bridges and restart the healing process as the patient shows evidence of necrosis of muscle. Risk and benefits were discussed with the patient in great detail. Patient would like to move forward with surgical intervention. Continue IV antibiotics through the PICC line. Follow-up at the wound care center Dr. Kitchen in [address] Shannon in the following week. (2) Lymphedema of right lower extremity: CODE(S): I89.0 - Lymphedema, not elsewhere classified PLAN: Continue compression wraps to the bilateral lower extremity.
--- NOTE | 2023-12-17 09:19 | WC ---
12/15/2023 RLE LATERAL SUP./LAT MED/RLE LAT INF
--- NOTE | 2023-12-17 09:21 | WC ---
12/15/2023 ROSLYN LAT SUP
--- NOTE | 2023-12-17 09:22 | WC ---
12/15/2023 MULUE LAT MED
--- NOTE | 2023-12-17 09:23 | WC ---
12/15/2023 RLE LAT INF
[2023-12-21 15:48] VITALS: BP 129/57; PULSE 51; RESP 16; TEMP 36.3; BMI 44.6
--- NOTE | 2023-12-21 16:27 | PCM.WC.HP ---
History of Present Illness Date of Service: 12/21/23 Chief Complaint: Ulcerations of the right lateral calf with large areas of necrosis, and extension into muscle History of Wound: This is a 68-year-old morbidly obese diabetic male who presented with 3 large ulcerations on the right lateral calf. According to the patient, they had been present for approximately 6 weeks. The origin of the ulcerations is uncertain, though they may have resulted from a fall which the patient experienced while at home. The patient has multiple pre-existing medical problems, which have been listed below. He had recently been treated for blood loss anemia from a gastrointestinal source. He is a resident of [facility] in [place], [place]. He has a history of bilateral lower extremity deep vein thrombosis, and a venous duplex examination performed on October 22, 2023, revealed chronic changes in the right lower extremity deep venous system, with a normal superficial venous system. Management of the patient's wound had been by means of the [facility], Dr. Reyna, from [place], [place]. Approximately 1 week prior to presentation, the patient underwent placement of a left upper extremity PICC catheter and has been receiving vancomycin and Zosyn intravenously. The patient had been on chronic systemic anticoagulation with Eliquis until recently, which was discontinued as a result of his recent gastrointestinal bleeding. The patient underwent laboratory studies recently, the results of which are as follows: Glucose 106, sodium 145, potassium 4.9, chloride 107, BUN 30, creatinine 1.3, calcium 9.0, white blood count 5.4, hemoglobin 10.0, hematocrit 32.3, platelets 141,000, sed rate 35, D-dimer 1.81, C-reactive protein 37.6. A chest x-ray on October 28, 2023, revealed no acute abnormalities. The patient is not active. He claims to sleep on a flat mattress at night. 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 BPH (benign prostatic hyperplasia) Atrial fibrillation History of deep vein thrombosis (DVT) of lower extremity Blood loss anemia Hypertension Hiatal hernia Diverticulosis Debility Morbid obesity with BMI of 40.0-44.9, adult Obstructive sleep apnea on CPAP History of congestive heart failure Impaired mobility Chronic anemia Venous insufficiency (chronic) (peripheral) Sleep apnea DM2 (diabetes mellitus, type 2) Benign essential HTN SOB (shortness of breath) Recurrent right inguinal hernia Heart murmur Heart failure 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 2 diabetes mellitus Aortic valve disease Renal mass, left History of DVT (deep vein thrombosis) Valvular heart disease Atrial fibrillation/flutter Chronic acquired lymphedema Ulcer of left lower extremity with fat layer exposed Superficial thrombosis of left lower extremity Peripheral vascular disease of lower extremity with ulceration Morbid obesity Home Medications ?Medication ?Instructions ?Recorded ?Last Taken ?Type aspirin 81 mg tablet,delayed 81 mg PO DAILY 03/17/19 Unknown History release carvedilol 25 mg tablet 25 mg PO BID 03/17/19 Unknown History amlodipine 5 mg tablet 5 mg PO DAILY 10/28/23 Unknown History apixaban 5 mg tablet (Eliquis) 5 mg PO BID 10/28/23 Unknown History atorvastatin 20 mg tablet 20 mg PO DAILY 10/28/23 Unknown History ferrous sulfate 325 mg (65 mg 325 mg PO DAILY 10/28/23 Unknown History iron) tablet (Feosol) gabapentin 300 mg capsule 300 mg PO TID 10/28/23 Unknown History melatonin 3 mg tablet 3 mg PO QHS 10/28/23 Unknown History metoprolol tartrate 25 mg tablet 12.5 mg PO BID 10/28/23 Unknown History polyethylene glycol 3350 17 17 g PO BID 10/28/23 Unknown History gram/dose oral powder (Miralax) acetaminophen 325 mg tablet 650 mg (2 x 325 mg) PO Q4H PRN PRN 11/03/23 Unknown Rx Fever, pain 1-10/10 #0 tabs albuterol sulfate 2.5 mg/3 mL 2.5 mg (3 mL) inhalation Q2H PRN 11/03/23 Unknown Rx (0.083 %) solution for nebulization PRN Dyspnea, wheezing #0 mL arginine 7 gram-glutam 7 1 packet PO BIDCM #0 ea 11/03/23 Unknown Rx gram-CaHMB 1.5 nipp-wtgqj-qy-min oral pwd pkt (Santhosh (with collagen)) budesonide 0.5 mg/2 mL suspension 0.5 mg (2 mL) inhalation BID.RT #0 11/03/23 Unknown Rx for nebulization mL insulin glargine-yfgn 100 unit/mL 40 unit (0.4 mL) subcut DAILY #0 mL 11/03/23 Unknown Rx (3 mL) subcutaneous pen menthol 0.44 %-zinc oxide 20.6 % 1 applic topical BID #0 grams 11/03/23 Unknown Rx topical ointment (Calmoseptine) nystatin 100,000 unit/gram topical 1 applic topical TID #0 grams 11/03/23 Unknown Rx powder (Nyamyc) potassium chloride 20 mEq 20 meq PO BIDCM #0 tabs 11/03/23 Unknown Rx tablet,extended release(part/cryst) amiodarone 200 mg tablet 200 mg PO BID 11/29/23 Unknown History ascorbic acid (vitamin C) 250 mg 500 mg PO DAILY 11/29/23 Unknown History tablet furosemide 40 mg tablet 40 mg PO BID 11/29/23 Unknown History insulin degludec 200 unit/mL (3 94 unit subcut DAILY 11/29/23 Unknown History mL) subcutaneous pen (Tresiba FlexTouch U-200 insulin) metformin 500 mg tablet,extended 500 mg PO BID 11/29/23 Unknown History release 24 hr semaglutide 2 mg/dose (8 mg/3 mL) 2 mg subcut QWEEK 11/29/23 Unknown History subcutaneous pen injector (Ozempic) Allergy/AdvReac Type Severity Reaction Status Date / Time ibuprofen (From Nuprin) Allergy Unknown Verified 11/30/23 10:00 Family History Mother Diabetes Father Cirrhosis of liver Alcoholism Surgical History History of right inguinal hernia repair H/O colectomy History of repair of inguinal hernia History of bladder surgery History of tonsillectomy and adenoidectomy History of right inguinal hernia repair S/P AVR (aortic valve replacement) Social History household members: children Smoking Status: Former smoker how long ago did patient quit smoking: Quit ~ 20 yrs prior, smoked age 15 until quit ~ 2 ppd. alcohol intake: never substance use type: does not use Vital Signs Vital Signs Vital Signs: 12/21/23 15:48 Temperature 97.3 F L Temperature Source Temporal Pulse Rate 51 L Respiratory Rate 16 Blood Pressure 129/57 H Blood Pressure Mean 81 Blood Pressure Source Monitor Blood Pressure Position Semi-Fowlers Blood Pressure Location Left Arm Weight Weight: 348 lb Body Mass Index (BMI) 44.6 Physical Exam Const alert, oriented x3 and no apparent distress Constitutional Narrative: The patient is obese. General Appearance: cooperative, comfortable and well developed Orientation / Consciousness: awake, oriented to person, oriented to place and oriented to time Nutritional Appearance: overweight HEENT normocephalic and head/scalp atraumatic Head and Scalp: normal to inspection Face and Sinus: normal facial exam Nose: external nose normal External Ear: external ears normal Eyes EOMs intact bilaterally Neck full ROM Resp normal respiratory effort, normal air movement, no retractions and no use of accessory muscles Effort and Inspection: able to speak in complete sentences Skin Wound Narrative: Mild nonpitting edema is noted in the right lower extremity. Pedal pulses are palpable. Neurological function is intact. Hemosiderin staining and hyperpigmentation is noted in the gaiter areas bilaterally. There are 3 large, deep ulceration on the right lateral calf. Each of the ulcerations extends into the underlying muscle. A skin bridge separates each of the large ulcerations, with undermining which connects each of the wounds to the other. Dimensions of the ulceration are documented elsewhere. There is a large amount of necrotic and nonviable tissue throughout, though less than noted previously, and there are increasing areas of pink healthy granulation tissue. Neuro oriented x3, CN's II-XII intact bilaterally, moves all extremities and no focal motor deficits Sensorium / Orientation: awake, alert, oriented to person, oriented to place and oriented to time Debridement Note Debridement Note Wound debrided: Right lateral calf ulcerations Laterality: Right Type of Debridement: Excisional debridement Anesthesia Used: 5% Lidocaine Gel Depth: Down to and including healthy tissue, in the subcutaneous layer and to muscle Percentage of wound debrided: 100 Instrument Used: 7mm curette Tissue Removed: Bioburden, necrotic and nonviable tissue Severity: Necrosis of Muscle Amount of bleeding with debridement: Mild Bleeding Controlled with: Compression and gauze Patient tolerated procedure: Patient tolerated procedure well Debridement Free Text: A 7 mm curette was used to perform a debridement of all 3 right lateral calf ulcerations. The ulcerations extend down through all layers of the dermis and subcutaneous tissue, and into the underlying muscle. It has been again noted that each of the 3 ulcerations communicate with each other in the subcutaneous and intramuscular space, with 2 large skin bridges the 3 ulcerations. In general, compared to prior examinations, the amount of necrotic and nonviable tissue has diminished. There are increasing areas of pink, healthy, granulation tissue. Post-Debridement Measurements and Additional Note: Post-Debridement Measurements/Treatment WC - Nurse 1 - General Ulcer Assessment Start: 12/15/23 15:25 Freq: Status: Active Protocol: LOWEXAlmaz Activity Type Activity Date Activity User E-sign Co-sign Detail Recorded Client Recorded Date Recorded By Document 12/15/23 15:25 [facility] [id number] 12/15/23 15:43 [facility] Document 12/21/23 15:48 [id number] 12/21/23 15:59 12/15/23 12/21/23 15:25 15:48 - Today's Visit Information Type of service Follow-up Visit Follow-up Visit (Physician/SCIENTIFIC DIVER (Physician/SCIENTIFIC DIVER ) ) Arrival Mode Ambulatory,Cane Ambulatory,Cane Transfer Assistance None Patient Identification Verified (Name & Yes Yes ) Patient Requires Transmission-Based No No Precautions Height and Weight Body Mass Index (BMI) 44.6 44.6 BMI Classification Obese Obese Vital Signs Temperature (97.8 F-99.1 F) 97.6 F L 97.3 F L Temperature Source Temporal Temporal Pulse Rate (60-100) 50 L 51 L Pulse Location Monitor Monitor Respiratory Rate (12-18) 16 16 Respiratory rate source Observation Observation Oxygen Delivery Method Room Air Blood Pressure (90/60-120/80) 126/75 H 129/57 H Blood Pressure Mean 92 81 Source Monitor Monitor Position Sitting Semi-Fowlers Blood Pressure Location Right Arm Left Arm History Since Last Visit- (Skip if this is Patient's initial visit) Have you changed medications since your No No last visit? Any new allergies or adverse reactions No No Had a fall/change in ADL's that may No No increase risk of falls Signs or symptoms of abuse and/or No No neglect since last visit Have you been in the hospital since your No No last visit? Has dressing in place as prescribed Yes Yes Has compression in place as prescribed Yes Yes Has offloadiing in place as prescribed N/A N/A Experienced any changes in pain level or No No management Left Footwear Diabetic Shoe Regular Shoe Right Footwear Diabetic Shoe Regular Shoe Pain Scale: 0-10 Numeric Is Patient Pain Free? Yes Yes WC - Nurse 1 - General Ulcer Measurement Start: 12/15/23 15:25 Freq: Status: Active Protocol: Activity Type Activity Date Activity User E-sign Co-sign Detail Recorded Client Recorded Date Recorded By Document 12/15/23 15:25 [facility] [id number] 12/15/23 15:43 [facility] Document 12/21/23 15:48 [id number] 12/21/23 15:59 12/15/23 12/21/23 15:25 15:48 Wound Center Nurse 1 4. RLE lateral inferior- lower -Combined with other wound No -Current Size (cm) - Length 7.6 8 -Current Size (cm) - Width 7.5 8 -Current Size (cm) - Depth 1.7 2.8 -Total Square Cm 57.00 64 -Date of Last Picture (Recall this 12/15/23 field) -Photo Taken No -Epithelialization None Present -Tunneling Yes -Tunneling Position (O'clock) 2 -Tunneling Distance (cm) 11.5 -Undermining/Tunneling Yes No -Undermining/Tunneling Starts (O'clock 10 ) -Undermining/Tunneling Ends (O'clock) 4 -Maximum Distance (cm) 5 -Circular Undermining No -Exudate Amt Large Large -Exudate Type Serosanguineous Serosanguineous -Wound Margin Thickened Flat & Intact -Granulation Amt Medium (34-66%) Large (67-100%) -Granulation Quality [place] Red -Slough/Fibrin Yes -Necrosis Amt Large (67-100%) Medium (34-66%) -Necrotic Tissue Type Adherent Slough Adherent Slough -Structure Exposed N/A -Texture (Mariza-wound Skin Appearance) Assessed Assessed, Localized Edema -Moisture (Mariza-wound Skin Appearance) Assessed Assessed,Dry/ Scaly -Color (Mariza-wound Skin Appearance) Assessed, Assessed Erythema -Temperature (Mariza-wound Skin No Abnormality No Abnormality Appearance) (Pt Warm) (Pt Warm) -Tenderness on Palpation (Mariza-wound No No Skin Appearance) -Ulcer Cleansing Soap and Water Wound Cleanser -Foul Odor after Cleansing No No -Anesthetic Used 4% Lidocaine 4% Lidocaine Solution Solution 3. RLE lateral middle -Combined with other wound No -Current Size (cm) - Length 5 4.3 -Current Size (cm) - Width 5.7 5.3 -Current Size (cm) - Depth 2.7 3.0 -Total Square Cm 28.5 22.79 -Date of Last Picture (Recall this 12/15/23 field) -Photo Taken No -Epithelialization None Present -Tunneling Yes No -Tunneling Position (O'clock) 2 -Tunneling Distance (cm) 6.3 -Undermining/Tunneling No -Circular Undermining No -Exudate Amt Large Large -Exudate Type Serosanguineous Serosanguineous -Wound Margin Distinct, Flat & Intact Outline Attached -Granulation Amt Small (1-33%) Large (67-100%) -Granulation Quality [place] Red -Slough/Fibrin Yes -Necrosis Amt Large (67-100%) Medium (34-66%) -Necrotic Tissue Type Adherent Slough Adherent Slough -Structure Exposed N/A -Texture (Mariza-wound Skin Appearance) Assessed Assessed, Localized Edema -Moisture (Mariza-wound Skin Appearance) Assessed,Dry/ Assessed,Dry/ Scaly Scaly -Color (Mariza-wound Skin Appearance) Assessed, Assessed Erythema -Temperature (Mariza-wound Skin No Abnormality No Abnormality Appearance) (Pt Warm) (Pt Warm) -Tenderness on Palpation (Mariza-wound No No Skin Appearance) -Ulcer Cleansing Soap and Water Wound Cleanser -Foul Odor after Cleansing No No -Anesthetic Used 4% Lidocaine 4% Lidocaine Solution Solution 2. RLE lateral superior -Combined with other wound No -Current Size (cm) - Length 1.6 1.6 -Current Size (cm) - Width 2.4 2.5 -Current Size (cm) - Depth 0.5 2.7 -Total Square Cm 3.84 4.00 -Date of Last Picture (Recall this 12/15/23 field) -Photo Taken No -Epithelialization None Present -Tunneling No -Undermining/Tunneling No -Circular Undermining No -Exudate Amt Large Large -Exudate Type Serosanguineous Serosanguineous -Wound Margin Distinct, Flat & Intact Outline Attached -Granulation Amt Medium (34-66%) Large (67-100%) -Granulation Quality [place] Red -Slough/Fibrin Yes -Necrosis Amt Large (67-100%) Small (1-33%) -Necrotic Tissue Type Adherent Slough Adherent Slough -Structure Exposed N/A -Texture (Mariza-wound Skin Appearance) Assessed Assessed, Localized Edema -Moisture (Mariza-wound Skin Appearance) Assessed,Dry/ Assessed,Dry/ Scaly Scaly -Color (Mariza-wound Skin Appearance) Assessed, Assessed Erythema -Temperature (Mariza-wound Skin No Abnormality No Abnormality Appearance) (Pt Warm) (Pt Warm) -Tenderness on Palpation (Mariza-wound No No Skin Appearance) -Ulcer Cleansing Soap and Water Wound Cleanser -Foul Odor after Cleansing No No -Anesthetic Used 4% Lidocaine 4% Lidocaine Solution Solution Lower Limb Edema Present Yes Right Calf (cm) 49.6 47.8 Right Ankle (cm) 29.4 30.5 WC - Nurse 2 - General Ulcer CM Notes Start: 12/15/23 15:25 Freq: Status: Active Protocol: Activity Type Activity Date Activity User E-sign Co-sign Detail Recorded Client Recorded Date Recorded By Document 12/15/23 16:08 [id number] 12/15/23 16:20 Document 12/21/23 16:17 DS 1 12/21/23 16:21 DS 12/15/23 12/21/23 16:08 16:17 Wound Center Nurse 2 4. RLE lateral inferior- lower -Time 16:08 16:15 -Correct Patient Yes Yes -Correct Side, Site, Position Yes Yes -Correct Procedure Yes Yes -Procedure Performed Yes Yes -Type of Procedure Debridement Debridement -Clinical Debridement Muscle / Fascia Muscle / Fascia -Tissue Removed Muscle,Fascia Muscle,Fascia -Post Debridement (cm) - Length 7.7 8.0 -Post Debridement (cm) - Width 7.5 8.0 -Post Debridement (cm) - Depth 2.5 2.8 -Total Square (Post) (cm) 57.75 64.00 -Area of Debridement (cm) - Length 7.7 8.0 -Area of Debridement (cm) - Width 7.5 8.0 -Total Square (Area) (cm) 57.75 64.00 -Tunneling No No -Undermining/Tunneling No No -Circular Undermining No No -Wound/Ulcer Outcome Not Healed Not Healed -Ulcer Cleansing Rinsed/ Rinsed/ Irrigated with Irrigated with Saline Saline -Foul Odor after Cleansing No -Bioengineered Tissue No -Bleeding Controlled with Pressure Pressure -Treatment Response Procedure Procedure Tolerated Well Tolerated Well -Offloading No -Debridement - Subq, 1st 20sq cm No -Debridement - Muscle / Fascia, 1st No Yes 20sq cm -Debridement, Muscle/Fascia, ea addt'l 4 20sq cm or part thereof 3. RLE lateral middle -Time 16:10 16:15 -Correct Patient Yes Yes -Correct Side, Site, Position Yes Yes -Correct Procedure Yes Yes -Procedure Performed Yes Yes -Type of Procedure Debridement Debridement -Clinical Debridement Muscle / Fascia Muscle / Fascia -Tissue Removed Muscle,Fascia Muscle,Fascia -Post Debridement (cm) - Length 4.5 4.3 -Post Debridement (cm) - Width 6 6.0 -Post Debridement (cm) - Depth 4 3 -Total Square (Post) (cm) 27.0 25.80 -Area of Debridement (cm) - Length 4.5 4.3 -Area of Debridement (cm) - Width 6 6.0 -Total Square (Area) (cm) 27.0 25.80 -Tunneling No No -Undermining/Tunneling No No -Circular Undermining No No -Wound/Ulcer Outcome Not Healed Not Healed -Ulcer Cleansing Rinsed/ Rinsed/ Irrigated with Irrigated with Saline Saline -Foul Odor after Cleansing No -Bioengineered Tissue No -Bleeding Controlled with Pressure Pressure -Treatment Response Procedure Procedure Tolerated Well Tolerated Well -Offloading No -Debridement - Muscle / Fascia, 1st No No 20sq cm 2. RLE lateral superior -Time 16:11 16:15 -Correct Patient Yes Yes -Correct Side, Site, Position Yes Yes -Correct Procedure Yes Yes -Procedure Performed Yes Yes -Type of Procedure Debridement Debridement -Clinical Debridement Muscle / Fascia Muscle / Fascia -Tissue Removed Muscle,Fascia Muscle,Fascia -Post Debridement (cm) - Length 1.5 1.6 -Post Debridement (cm) - Width 2.5 2.5 -Post Debridement (cm) - Depth 3.2 2.7 -Total Square (Post) (cm) 3.75 4.00 -Area of Debridement (cm) - Length 1.5 1.6 -Area of Debridement (cm) - Width 2.5 2.5 -Total Square (Area) (cm) 3.75 4.00 -Tunneling No No -Undermining/Tunneling No No -Circular Undermining No No -Wound/Ulcer Outcome Not Healed Not Healed -Ulcer Cleansing Rinsed/ Rinsed/ Irrigated with Irrigated with Saline Saline -Foul Odor after Cleansing No -Bioengineered Tissue No -Bleeding Controlled with Pressure Pressure -Treatment Response Procedure Procedure Tolerated Well Tolerated Well -Offloading No -Debridement - Muscle / Fascia, 1st Yes No 20sq cm -Debridement, Muscle/Fascia, ea addt'l 4 20sq cm or part thereof Pain Scale: 0-10 Numeric Is Patient Pain Free? Yes Yes - Nurse 3 - General Ulcer D/C NN Start: 12/15/23 15:25 Freq: Status: Active Protocol: Activity Type Activity Date Activity User E-sign Co-sign Detail Recorded Client Recorded Date Recorded By Document 12/15/23 16:32 Wound center 12/15/23 16:35 12/15/23 16:32 Wound Care Center Nurse 3 4. RLE lateral inferior- lower -Other Dressing DAKINS SOAKED GAUZE -Primary Dressing Covered/Secured with Dry Gauze & Roll Gauze, Secured with Tape 3. RLE lateral middle -Other Dressing DAKINS SOAKED GAUZE -Primary Dressing Covered/Secured with Dry Gauze & Roll Gauze 2. RLE lateral superior -Primary Dressing Applied Optilok 8x12 -Other Dressing DAKINS SOAKED GAUZE -Primary Dressing Covered/Secured with Dry Gauze & Roll Gauze, Secured with Tape -Optilok 8x12 1 BLE -Compression Wrap Celso Wrap Pain Scale: 0-10 Numeric Is Patient Pain Free? 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: CODE(S): L97.913 - Non-pressure chronic ulcer of unspecified part of right lower leg with necrosis of muscle (2) Ulcer with necrosis of muscle: (3) Right leg swelling: CODE(S): M79.89 - Other specified soft tissue disorders (4) Left leg swelling: CODE(S): M79.89 - Other specified soft tissue disorders (5) Edema of right lower leg: CODE(S): R60.0 - Localized edema (6) Edema of left lower leg: CODE(S): R60.0 - Localized edema (7) Morbid obesity with BMI of 40.0-44.9, adult: CODE(S): E66.01 - Morbid (severe) obesity due to excess calories; Z68.41 - Body mass index [BMI] 40.0-44.9, adult (8) DM2 (diabetes mellitus, type 2): CODE(S): E11.9 - Type 2 diabetes mellitus without complications QUALIFIERS: Diabetes mellitus complication status: with circulatory complication (9) S/P AVR (aortic valve replacement): CODE(S): Z95.2 - Presence of prosthetic heart valve (10) History of DVT (deep vein thrombosis): CODE(S): Z86.718 - Personal history of other venous thrombosis and embolism (11) Lymphedema of right lower extremity: CODE(S): I89.0 - Lymphedema, not elsewhere classified (12) Lymphedema of left lower extremity: CODE(S): I89.0 - Lymphedema, not elsewhere classified (13) History of right inguinal hernia repair: CODE(S): Z98.890 - Other specified postprocedural states; Z87.19 - Personal history of other diseases of the digestive system (14) Impaired mobility: CODE(S): Z74.09 - Other reduced mobility (15) Recurrent right inguinal hernia: CODE(S): K40.91 - Unilateral inguinal hernia, without obstruction or gangrene, recurrent (16) History of congestive heart failure: CODE(S): Z86.79 - Personal history of other diseases of the circulatory system (17) Impaired mobility and ADLs: CODE(S): Z74.09 - Other reduced mobility; Z78.9 - Other specified health status (18) Obstructive sleep apnea on CPAP: CODE(S): G47.33 - Obstructive sleep apnea (adult) (pediatric) (19) Debility: CODE(S): R53.81 - Other malaise (20) H/O colectomy: CODE(S): Z90.49 - Acquired absence of other specified parts of digestive tract (21) Diverticulosis: CODE(S): K57.90 - Diverticulosis of intestine, part unspecified, without perforation or abscess without bleeding (22) Hiatal hernia: CODE(S): K44.9 - Diaphragmatic hernia without obstruction or gangrene (23) Hypertension: CODE(S): I10 - Essential (primary) hypertension (24) Blood loss anemia: CODE(S): D50.0 - Iron deficiency anemia secondary to blood loss (chronic) (25) History of deep vein thrombosis (DVT) of lower extremity: CODE(S): Z86.718 - Personal history of other venous thrombosis and embolism (26) BPH (benign prostatic hyperplasia): CODE(S): N40.0 - Benign prostatic hyperplasia without lower urinary tract symptoms (27) Atrial fibrillation: CODE(S): I48.91 - Unspecified atrial fibrillation (28) Valvular heart disease: CODE(S): I38 - Endocarditis, valve unspecified PLAN: Plan This is a 68-year-old morbidly obese diabetic male with multiple pre-existing medical problems, which are listed herein. Patient has been treated recently at our facility for 3 large, deep ulcerations on the right lateral calf which extend well into the muscular layers. Each of the ulcerations is interconnected, with undermining in the subcutaneous layers. Recent cultures have been obtained, which were positive for E. coli, Proteus mirabilis, Pseudomonas aeruginosa, Enterococcus faecalis, Bacteroides fragilis, and Prevotella disiens. The patient has a PICC catheter inserted into his left upper arm. Dr. Barnard, infectious disease specialist, has been recently involved in the patient's antibiotic management. Patient is currently receiving Meropenem intravenously per his PICC catheter, as ordered by Dr. Barnard. The patient's right calf ulcerations are severe, with extension to muscle, though they have improved in recent weeks with local ulcer care. We have been using Dakin's moistened gauze packing on a daily basis. This management is to be continued. The patient's right lower extremity is to be wrapped with Celso. A noninvasive lower extremity arterial study was performed on December 14, 2023, which revealed no evidence of significant arterial occlusive disease. Dr. Aaron Shannon, podiatric specialist, has evaluated the patient on December 15, 2023, and surgical debridement and unroofing in the operating room setting is planned within the next several weeks. Such surgical intervention will optimize the patient's ulcerations to make them more suitable for management by means of negative pressure wound therapy, skin grafting, skin substitutes, etc. Patient is to return in 1 week for reevaluation. Total time: 24 minutes
== END 2024-01-09 23:59 | disposition home or self-care (01) ==
LOC: WC 15:30
PROVIDERS: PCP Nurse Practitioner Primary Care; Referring Provider Surgery; Visit Provider Surgery
DX: E11.622 Type 2 diabetes mellitus with other skin ulcer (principal); L97.213 Non-pressure chronic ulcer of right calf with necrosis of muscle; E11.51 Type 2 diabetes mellitus with diabetic peripheral angiopathy without gangrene; I89.0 Lymphedema, not elsewhere classified; Z86.718 Personal history of other venous thrombosis and embolism; Z91.81 History of falling; Z79.899 Other long term (current) drug therapy; Z79.01 Long term (current) use of anticoagulants; Z79.82 Long term (current) use of aspirin; Z87.891 Personal history of nicotine dependence; R60.0 Localized edema
CPT/HCPCS: 11043; 11046; 93923

== ENCOUNTER 2024-01-03 09:34 | Inpatient (IN) | payer MEDICARE, SELFPAY ==
[2024-01-03] VITALS (7 sets, daily range): BP systolic 130–148; BP diastolic 64–76; PULSE 46–82; RESP 14–22; TEMP 35.8–36.8; O2SAT 96–100; BMI 41.7
--- NOTE | 2024-01-03 09:53 | ED.RN ---
PT WAS BROUGHT INTO ROOM. WHEN THIS NURSE ASKS HIM WHY HE IS HERE HE RESPONDS WITH STAIRING AND SAYING IF YOU PUT ME IN THE COT, YOU BETTER KNOCK ME OUT, CLARIFIED QUESTION TO PT. RESPONDS AGAIN WITH A STAIR, STATES WELL YOU HAVE PAPERWORK. UNABLE TO GET ANYMORE OUT OF PT AT THIS TIME.
--- NOTE | 2024-01-03 10:05 | ED.RN ---
1000: CALLED [facility] FOR REPORT AND TO FIND OUT PT MENTAL STATUS. PERSON AT [facility] SAID NURSES WERE NOT ANSWERING PHONES SHE STATES THAT THEY WERE TOLD TO HAVE PT REPORT TO [facility] FOR SURGERY, AND ADMISSION.
--- NOTE | 2024-01-03 10:27 | ED.VIS.LOWEX ---
HPI History of Present Illness HPI Narrative: Patient presents with a wound to his right leg that has been chronic and getting worse. Patient states he was told he needed to be admitted to the hospital. Patient is a very poor informant. Patient describes his pain as burning. Patient states it is worse with the car ride over here. Patient states she did fall yesterday. Patient states his pain is worse over the lateral aspect of his right lower leg. Patient denies any fevers or chills. Chief Complaint: Wound Informant: patient Onset/Context/Timing Context: Gradual Onset Timing: Continuous Quality of Pain: Burning Location: Right lower leg Worsened by: Car ride Relieved by: Nothing Associated Symptoms Associated Symptoms: Negative for Weakness or Loss of Funtion 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 BPH (benign prostatic hyperplasia) Atrial fibrillation History of deep vein thrombosis (DVT) of lower extremity Blood loss anemia Hypertension Hiatal hernia Diverticulosis Debility Morbid obesity with BMI of 40.0-44.9, adult Obstructive sleep apnea on CPAP History of congestive heart failure Impaired mobility Chronic anemia Venous insufficiency (chronic) (peripheral) Sleep apnea DM2 (diabetes mellitus, type 2) Benign essential HTN SOB (shortness of breath) Recurrent right inguinal hernia Heart murmur Heart failure 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 2 diabetes mellitus Aortic valve disease Renal mass, left History of DVT (deep vein thrombosis) Valvular heart disease Atrial fibrillation/flutter Chronic acquired lymphedema Ulcer of left lower extremity with fat layer exposed Superficial thrombosis of left lower extremity Peripheral vascular disease of lower extremity with ulceration Morbid obesity Home Medications ?Medication ?Instructions ?Recorded ?Last Taken ?Type aspirin 81 mg tablet,delayed 81 mg PO DAILY 03/17/19 Unknown History release carvedilol 25 mg tablet 25 mg PO BID 03/17/19 Unknown History amlodipine 5 mg tablet 5 mg PO DAILY 10/28/23 Unknown History apixaban 5 mg tablet (Eliquis) 5 mg PO BID 10/28/23 Unknown History atorvastatin 20 mg tablet 20 mg PO QHS 10/28/23 Unknown History ferrous sulfate 325 mg (65 mg 325 mg PO DAILY 10/28/23 Unknown History iron) tablet (Feosol) gabapentin 300 mg capsule 300 mg PO TID 10/28/23 Unknown History melatonin 3 mg tablet 3 mg PO QHS 10/28/23 Unknown History acetaminophen 325 mg tablet 650 mg (2 x 325 mg) PO Q4H PRN PRN 11/03/23 Unknown Rx Fever, pain 1-10/10 #0 tabs albuterol sulfate 2.5 mg/3 mL 2.5 mg (3 mL) inhalation Q2H PRN 11/03/23 Unknown Rx (0.083 %) solution for nebulization PRN Dyspnea, wheezing #0 mL budesonide 0.5 mg/2 mL suspension 0.5 mg (2 mL) inhalation BID.RT #0 11/03/23 Unknown Rx for nebulization mL insulin glargine-yfgn 100 unit/mL 40 unit (0.4 mL) subcut DAILY #0 mL 11/03/23 Unknown Rx (3 mL) subcutaneous pen menthol 0.44 %-zinc oxide 20.6 % 1 applic topical BID #0 grams 11/03/23 Unknown Rx topical ointment (Calmoseptine) nystatin 100,000 unit/gram topical 1 applic topical TID #0 grams 11/03/23 Unknown Rx powder (Nyamyc) potassium chloride 20 mEq 20 meq PO BIDCM #0 tabs 11/03/23 Unknown Rx tablet,extended release(part/cryst) ascorbic acid (vitamin C) 250 mg 250 mg PO DAILY 11/29/23 Unknown History tablet bumetanide 1 mg tablet 1 mg PO QDAY 12/22/23 Unknown History insulin lispro 100 unit/mL 1 sliding scale dose subcut 12/22/23 Unknown History subcutaneous solution USEASDIRECTD tamsulosin 0.4 mg capsule 0.8 mg PO DAILY 12/22/23 Unknown History tirzepatide 5 mg/0.5 mL 5 mg subcut SA 12/22/23 Unknown History subcutaneous pen injector (Mounjaro) budesonide-formoterol HFA 160 2 inh inhalation BID 01/03/24 Unknown History mcg-4.5 mcg/actuation aerosol inhaler (Symbicort) docusate sodium 100 mg capsule 100 mg PO BID 01/03/24 Unknown History (Col-Rite) hydrocodone-acetaminophen 5-325mg 1 tab PO Q8H PRN pain 01/03/24 Unknown History 5mg-325mg trazodone 50 mg tablet 50 mg PO QHS 01/03/24 Unknown History Allergy/AdvReac Type Severity Reaction Status Date / Time ibuprofen (From Nuprin) Allergy Unknown Verified 01/03/24 09:36 Family History Mother Diabetes Father Cirrhosis of liver Alcoholism Surgical History History of right inguinal hernia repair H/O colectomy History of repair of inguinal hernia History of bladder surgery History of tonsillectomy and adenoidectomy History of right inguinal hernia repair S/P AVR (aortic valve replacement) Social History household members: children Smoking Status: Former smoker how long ago did patient quit smoking: Quit ~ 20 yrs prior, smoked age 15 until quit ~ 2 ppd. alcohol intake: never substance use type: does not use ROS ROS ED Constitutional Constitutional ED: Denies chills or fever(s) Eyes Eyes: Denies blurry vision or change in vision ENT ENT ED: Denies rhinorrhea or sore throat Cardiovascular Cardiovascular: Denies chest pain or palpitations Respiratory/Chest Respiratory/Chest: Denies cough or dyspnea Gastrointestinal Gastrointestinal: Denies nausea or vomiting Genitourinary Genitourinary ED: Denies dysuria or hematuria Musculoskeletal Musculoskeletal: Denies back pain or neck pain Integumentary Denies abscess or rash Neurologic Neurologic: Reports headache(s); Denies weakness Allergic/Immunologic Allergic/Immunologic ED: Denies mouth swelling or urticaria EXAM Physical Exam Const Vital Signs: 01/03/24 09:36 01/03/24 11:34 01/03/24 12:13 Temperature 96.4 F L 98.2 F Temperature Source Temporal Pulse Rate 46 L 64 82 Respiratory Rate 18 16 18 Blood Pressure 148/70 H 138/76 H 138/76 H Blood Pressure Mean 96 96 96 Pulse Ox 97 98 98 Oxygen Delivery Method Room Air Room Air Positive well nourished, well developed and obese General Appearance ED: well developed and NAD Nutritional Appearance: obese HEENT Reports moist mucous membranes Neck full ROM and supple Resp normal respiratory effort and clear to auscultation bilaterally Cardio regular rate and regular rhythm GI non-tender and non-distended Palpation: soft Extremity Extremity Narrative: There is a dressing over the right lower leg. There is tenderness of the lateral aspect of the right lower leg. There is no obvious deformity. Neuro oriented x3, CN's II-XII intact bilaterally and moves all extremities Sensorium / Orientation: alert Psych mental status grossly normal MDM MDM MDM Narrative Medical decision making narrative: Differential diagnosis includes diabetic wound infection, sepsis, electrolyte abnormality, and debility. X-rays of the right tib-fib will be obtained to assess for fracture and osteomyelitis. CBC will be obtained to assess for leukocytosis and anemia. Basic metabolic profile will be obtained to assess for electrolyte abnormality and renal function. Lactate will be obtained to assess for sepsis. Blood cultures will be obtained to assess for sepsis. EKG will be obtained to assess for cardiac dysrhythmia and cardiac ischemia. Lab Data Attestation: I reviewed the patient's lab results. Lab results narrative: CBC was reviewed. There is a slight anemia with hemoglobin of 11.4 and hematocrit 37.8. Basic metabolic profile was reviewed. BUN was slightly elevated at 26 and creatinine was slightly elevated at 1.46. Sed rate was reviewed and was elevated at 52. CRP was reviewed and was elevated at 45. Labs: Laboratory Results - last 24 hr 01/03/24 01/03/24 10:33 10:55 WBC 6.7 RBC 4.29 L Hgb 11.4 L Hct 37.8 L MCV 88.1 MCH 26.6 L MCHC 30.2 L RDW Std Deviation 52.0 H RDW Coeff of Carlito 16.1 H Plt Count 200 MPV 12.3 H Immature Gran % (Auto) 0.400 Neut % (Auto) 72.1 H Lymph % (Auto) 12.9 L [place] % (Auto) 11.2 H Eos % (Auto) 3.0 Baso % (Auto) 0.4 Absolute Neuts (auto) 4.8 Absolute Lymphs (auto) 0.86 Nucleated RBC % 0 ESR 52 H Sodium 139 Potassium 4.8 Chloride 106 Carbon Dioxide 30.0 Anion Gap 3 L BUN 26 H Creatinine 1.46 H Estim Creat Clear Calc 74.17 Est GFR (MDRD) Af Amer 62 Est GFR (MDRD) Non-Af 51 L BUN/Creatinine Ratio 17.8 Glucose 125 H Lactic Acid 1.2 Calcium 9.2 C-React Prot Ext Range 45.00 H Radiography Diagnostic Testing: Clinical Impression(s) from Imaging Studies Tibia/Fibula X-Ray 01/03/24 10:45 IMPRESSION: Soft tissue laceration with tiny air bubbles within the soft tissues in the left leg overlying the lateral anterior aspect of the fibula. No radiopaque foreign body is seen. Electronically Signed: Jesse Stewart MD at 11:15 EDT , X-rays of the right tibia and fibula were obtained. There are 4 views. On my independent interpretation, there is no acute fracture. There is no evidence of osteomyelitis. There is air within the soft tissues. There is no foreign body noted. Treatment and Re-Evaluation Narrative: Case was discussed with Dr. Shannon from podiatry. He recommended admission to the hospital under the hospitalist service. He will take the patient to the operating room for debridement of his wounds. Case was discussed with the hospitalist. She will admit the patient to her service. Patient understood and was agreeable with the plan. All questions were answered. Discharge Plan Dx/Rx/DC Orders Clinical Impression: Wound of right leg, Benign essential HTN, DM2 (diabetes mellitus, type 2) Disposition Disposition: [facility]
--- NOTE | 2024-01-03 10:45 | RAD_ITS ---
STUDY: X-RAY - RIGHT TIBIA AND FIBULA REASON FOR EXAM: Male, 68 years old. Right lower extremity wound. TECHNIQUE: 4 view(s) of the tibia and fibula were obtained. COMPARISON: None. FINDINGS: Normal visualized tibia. Normal visualized fibula. There is evidence of a diffuse soft tissue swelling with lacerations along the anterior and lateral aspect of the leg overlying the fibula. No radiopaque foreign body is seen. RAD/Tibia & Fibula 2 Views IMPRESSION: Soft tissue laceration with tiny air bubbles within the soft tissues in the left leg overlying the lateral anterior aspect of the fibula. No radiopaque foreign body is seen. Electronically Signed: Jesse Stewart MD at 11:15 EDT ,
[2024-01-03 11:16] LABS: Erythrocyte Sedimentation Rate 52 mm/hr (0-20)
[2024-01-03 11:17] LABS: Absolute Lymphocyte Count 0.86 X10^3/uL (0.83-4.51); Absolute Neutrophil Count 4.8 X10^3/uL (2.0-7.7); Basophil# 0.03 X10^3/uL; Basophil% 0.4 % (0-1); Hematocrit 37.8 % (40-54); Hemoglobin 11.4 g/dL (13.0-16.5); Lymphocyte # 0.86 X10^3/ul (0.83-4.51); Lymphocyte % 12.9 % (19-41); Mean Corp Hgb Conc 30.2 g/dL (32-36); Mean Corpuscular Hgb 26.6 pg (27.0-32.0); Mean Corpuscular Volume 88.1 fL (80-94); Mean Platelet Vol. 12.3 fl (6.2-12.0); Monocyte# 0.75 X10^3/uL; Monocyte% 11.2 % (0-10); NRBC Flagged by Analyzer 0 % (0-5); Neutrophil % 72.1 % (47-70); Platelet Count 200 K/mm3 (150-450); RBC Distribution Width CV 16.1 % (11.6-14.6); Red Blood Count 4.29 M/mm3 (4.6-6.2); White Blood Count 6.7 K/mm3 (4.4-11.0)
[2024-01-03 11:28] LABS: Anion Gap 3 (5-15); BUN 26 mg/dL (7-18); BUN/Creat Ratio 17.8 RATIO (10-20); Calcium,Total 9.2 mg/dL (8.5-10.1); Chloride 106 mmol/L (98-107); Creatinine, Serum 1.46 mg/dL (0.70-1.30); EST Glomerular Filtration Rate 51 mL/min (>60); Est Glom Filt Rate - Afr Amer 62 mL/min (>60); Estimated Creatinine Clearance 74.17 ml/min; Glucose 125 mg/dL (74-106); Potassium 4.8 mmol/L (3.5-5.1); Sodium Level 139 mmol/L (136-145)
[2024-01-03 11:44] LABS: Lactic Acid 1.2 mmol/L (0.4-1.9)
--- NOTE | 2024-01-03 12:44 | HP.PCM.HOS_ITS ---
[facility] - General General Date of Admission: 01/03/24 Date of Service: 01/03/24 Chief Complaint: Leg wounds-sent in by podiatry HPI Narrative SHANELLE HUNTER, is a 68 M who presented to the emergency department [facility] on 01/03/2024 after being sent in from [facility] by podiatry for worsening right lower extremity wounds. The patient reports several months ago he had a fall in which she had a forehead laceration and wounds that started on his legs. He states the wounds are progressively getting worse and he was sent in for debridement by Dr. Shannon. He had recent cultures done here on 11/30/2023 showing polymicrobial infections with growth for E. coli, Proteus mirabilis, Pseudomonas aeruginosa, Enterococcus faecalis, Bacteroides fragilis, and Prevotella. He has not been on any recent antibiotics and been getting wound care at the nursing facility. His only other complaint is urinary retention. He is on Flomax and is concerned because he has difficulty urinating in a urinal or in bed and he needs to get up to go to the bathroom and sit on a bedside commode to do so. He has not yet followed with urology so I will give him the information to follow-up with after discharge. Vital signs on presentation showed temperature of 96.4, heart rate 46 (he has a history of intermittent bradycardia and is on carvedilol 25 mg p.o. twice daily and is asymptomatic), blood pressure 148/70, respiratory is 18, and oxygen saturation was 97% room air. CBC shows mild anemia with a hemoglobin of 11.4. It does appear that his baseline fluctuates. He has no white count but a mild left shift with a 72.1% neutrophilia. ESR was 52 and CRP was 45. Chemistry panel shows normal electrolytes with a mildly elevated serum creatinine and BUN from baseline at 26 and 1.46. (Baseline serum creatinine appears to run between 1.1 and 1.3. His lactic acid was normal at 1.2. Imaging with tibia and fibula x-ray of the right side shows soft tissue laceration with tiny air bubbles within the soft tissues of the left leg overlying the lateral and anterior aspect of the fibula. [facility] Medical History Current use of insulin Chronic headaches Cancer Diabetes Kidney disease Former smoker CPAP (continuous positive airway pressure) dependence On home oxygen therapy Pulmonary embolism COPD (chronic obstructive pulmonary disease) Myocardial infarct DVT (deep venous thrombosis) Anemia Ulcer with necrosis of muscle Lymphedema of left lower extremity Lymphedema of right lower extremity Edema of left lower leg Edema of right lower leg Left leg swelling Right leg swelling Chronic venous insufficiency Non-pressure ulcer of right lower extremity with necrosis of muscle BPH (benign prostatic hyperplasia) Atrial fibrillation History of deep vein thrombosis (DVT) of lower extremity Blood loss anemia Hypertension Hiatal hernia Diverticulosis Debility Morbid obesity with BMI of 40.0-44.9, adult Obstructive sleep apnea on CPAP History of congestive heart failure Impaired mobility SOB (shortness of breath) Recurrent right inguinal hernia Heart murmur Heart failure 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 2 diabetes mellitus Aortic valve disease Renal mass, left History of DVT (deep vein thrombosis) Valvular heart disease Atrial fibrillation/flutter Chronic acquired lymphedema Chronic anemia Venous insufficiency (chronic) (peripheral) Ulcer of left lower extremity with fat layer exposed Superficial thrombosis of left lower extremity Peripheral vascular disease of lower extremity with ulceration Sleep apnea Morbid obesity DM2 (diabetes mellitus, type 2) Benign essential HTN Home Medications ?Medication ?Instructions ?Recorded ?Last Taken ?Type aspirin 81 mg tablet,delayed 81 mg PO DAILY 03/17/19 Unknown History release carvedilol 25 mg tablet 25 mg PO BID 03/17/19 Unknown History amlodipine 5 mg tablet 5 mg PO DAILY 10/28/23 Unknown History apixaban 5 mg tablet (Eliquis) 5 mg PO BID 10/28/23 Unknown History atorvastatin 20 mg tablet 20 mg PO QHS 10/28/23 Unknown History ferrous sulfate 325 mg (65 mg 325 mg PO DAILY 10/28/23 Unknown History iron) tablet (Feosol) gabapentin 300 mg capsule 300 mg PO TID 10/28/23 Unknown History melatonin 3 mg tablet 3 mg PO QHS 10/28/23 Unknown History acetaminophen 325 mg tablet 650 mg (2 x 325 mg) PO Q4H PRN PRN 11/03/23 Unknown Rx Fever, pain 1-1010 #0 tabs albuterol sulfate 2.5 mg/3 mL 2.5 mg (3 mL) inhalation Q2H PRN 11/03/23 Unknown Rx (0.083 %) solution for nebulization PRN Dyspnea, wheezing #0 mL budesonide 0.5 mg/2 mL suspension 0.5 mg (2 mL) inhalation BID.RT #0 11/03/23 Unknown Rx for nebulization mL insulin glargine-yfgn 100 unit/mL 40 unit (0.4 mL) subcut DAILY #0 mL 11/03/23 Unknown Rx (3 mL) subcutaneous pen menthol 0.44 %-zinc oxide 20.6 % 1 applic topical BID #0 grams 11/03/23 Unknown Rx topical ointment (Calmoseptine) nystatin 100,000 unit/gram topical 1 applic topical TID #0 grams 11/03/23 Unknown Rx powder (Nyamyc) potassium chloride 20 mEq 20 meq PO BIDCM #0 tabs 11/03/23 Unknown Rx tablet,extended release(part/cryst) ascorbic acid (vitamin C) 250 mg 250 mg PO DAILY 11/29/23 Unknown History tablet bumetanide 1 mg tablet 1 mg PO QDAY 12/22/23 Unknown History insulin lispro 100 unit/mL 1 sliding scale dose subcut 12/22/23 Unknown History subcutaneous solution USEASDIRECTD tamsulosin 0.4 mg capsule 0.8 mg PO DAILY 12/22/23 Unknown History tirzepatide 5 mg/0.5 mL 5 mg subcut SA 12/22/23 Unknown History subcutaneous pen injector (Tonyunaguedaro) budesonide-formoterol HFA 160 2 inh inhalation BID 01/03/24 Unknown History mcg-4.5 mcg/actuation aerosol inhaler (Symbicort) docusate sodium 100 mg capsule 100 mg PO BID 01/03/24 Unknown History (Col-Rite) hydrocodone-acetaminophen 5-325mg 1 tab PO Q8H PRN pain 01/03/24 Unknown History 5mg-325mg trazodone 50 mg tablet 50 mg PO QHS 01/03/24 Unknown History Allergy/AdvReac Type Severity Reaction Status Date / Time ibuprofen (From Nuprin) Allergy Unknown Verified 01/03/24 09:36 Family History Mother Diabetes Father Cirrhosis of liver Alcoholism Surgical History History of embolic filter insertion History of right inguinal hernia repair H/O colectomy History of repair of inguinal hernia History of bladder surgery History of tonsillectomy and adenoidectomy History of right inguinal hernia repair S/P AVR (aortic valve replacement) Social History (Updated 01/03/24 @ 15:[address] Marsha Chaney DO) housing: intermediate Smoking Status: Former smoker how long ago did patient quit smoking: Quit ~ 20 yrs prior, smoked age 15 until quit ~ 2 ppd. alcohol intake: never substance use type: does not use ROS Constitutional Constitutional: Reports weakness; Denies anorexia, change in weight, chills, fatigue, fever(s), malaise, night sweats or other Eyes Eyes: Denies blurry vision, change in eye color, change in vision, discharge from eye(s), double vision, erythema, eye pain, loss of vision or other ENT HEENT: Denies abnormal hearing, dysphagia, ear pain, epistaxis, headache(s), hearing loss, nasal congestion, nasal discharge, post nasal drip, sinus pressure, sore throat or other Cardiovascular Cardiovascular: Denies chest pain, claudication, dyspnea on exertion, edema, lightheadedness, orthopnea, palpitations, paroxysmal nocturnal dyspnea, rapid heart rate, syncope or other Respiratory/Chest Respiratory/Chest: Denies cough, dyspnea, excessive phlegm production, hemoptysis, productive cough, shortness of breath at rest, shortness of breath with exertion, wheezing or other Gastrointestinal Gastrointestinal: Denies abdominal pain, coffee ground emesis, constipation, diarrhea, dyspepsia, hematemesis, hematochezia, loose stools, melena, nausea, vomiting or other Genitourinary Genitourinary: Reports difficulty urinating, nocturia, urinary frequency and urinary hesitancy; Denies burning urination, dysuria, hematuria, urinary incontinence, urinary urgency or other Musculoskeletal Musculoskeletal: Reports joint pain and joint stiffness; Denies arthralgias, back pain, joint swelling, myalgias, neck pain or other Neurologic Neurologic: Reports abnormal gait; Denies abnormal speech, confusion, disequilibrium, dizziness, focal weakness, headache(s), numbness, paresthesias, seizure-like activity, seizures, syncope, tingling, tremor(s) or other Psychiatric Psychiatric: Denies anxiety, depression, homicidal ideation, suicidal ideation or other Endocrine Endocrinology: Denies change in body appearance, cold intolerance, excessive sweating, heat intolerance, polydipsia, polyuria or other Hematologic/Lymphatic Hematologic/Lymphatic: Denies anemia, easy bleeding, easy bruising, lymphadenopathy or other Allergic/Immunologic Allergic/Immunologic: Denies rhinitis, hives, eczemia, asthma or other Vital Signs Vital Signs Vital Signs: 01/03/24 09:36 01/03/24 11:34 01/03/24 12:13 Temperature 96.4 F L 98.2 F Temperature Source Temporal Pulse Rate 46 L 64 82 Respiratory Rate 18 16 18 Blood Pressure 148/70 H 138/76 H 138/76 H Blood Pressure Mean 96 96 96 Pulse Ox 97 98 98 Oxygen Delivery Method Room Air Room Air Weight Weight: 147.418 kg Body Mass Index (BMI) 41.7 Physical Exam Const alert, oriented x3, no apparent distress and well nourished; Negative for average body habitus or healthy appearing Constitutional Narrative: Morbid obese, upper middle-aged, white male who appears older than stated age, sitting up on the edge of the bed in the emergency department, does not appear toxic and appears comfortable General Appearance: cooperative HEENT normocephalic, head/scalp atraumatic and moist oral mucous membranes HEENT Narrative: Moderate hearing loss, Mallampati is 3, no thrush Eyes PERRL, EOMs intact bilaterally and conjunctivae normal Eyes Narrative: No scleral icterus Neck no lymphadenopathy and supple Neck Narrative: Neck is short and thick, trachea is midline, no thyroid enlargement noted Resp normal respiratory effort, no retractions, no use of accessory muscles and clear to auscultation bilaterally Auscultation: Negative for rales, rhonchi or wheezes Cardio regular rate, regular rhythm, S1 normal heart sound, S2 normal heart sound, no murmurs, no rub, no gallops and no clicks GI normal to inspection, nondistended, normoactive bowel sounds, soft to palpation and non-tender GI Narrative: Large protuberant abdomen Extremity Extremity Narrative: Bilateral lower extremity venous stasis noted, 3 significant wounds on the right lateral leg, no cyanosis or clubbing Skin Skin Narrative: Right leg with 3 wounds along the lateral aspect distally, the most cranial one is about the size of a golf ball and deep with purulent drainage the other 2 are larger with the 1 in the mid leg appearing to have some tunneling medially, granulation tissue is present laterally, the most distal 1 seems to be the most superficial with good granulation tissue in place at this time Neuro oriented x3, CN's II-XII intact bilaterally, moves all extremities and no focal motor deficits Neuro Narrative: Generalized weakness noted Speech: speech normal Psych Psych Narrative: Affect is slow, patient is slow to respond and difficult to get him to focus on the current medical issue, eye contact is good and wants I could direct his thought process he interacted appropriately, mood seems somewhat depressed Results Lab / Micro Data 01/03/24 10:55 01/03/24 10:55 Labs: Laboratory Results - last 24 hr 01/03/24 10:33: Lactic Acid 1.2 01/03/24 10:55: WBC 6.7, RBC 4.29 L, Hgb 11.4 L, Hct 37.8 L, MCV 88.1, MCH 26.6 L, MCHC 30.2 L, RDW Std Deviation 52.0 H, RDW Coeff of Carlito 16.1 H, Plt Count 200, MPV 12.3 H, Immature Gran % (Auto) 0.400, Neut % (Auto) 72.1 H, Lymph % (Auto) 12.9 L, Cottle % (Auto) 11.2 H, Eos % (Auto) 3.0, Baso % (Auto) 0.4, Absolute Neuts (auto) 4.8, Absolute Lymphs (auto) 0.86, Nucleated RBC % 0, ESR 52 H, Sodium 139, Potassium 4.8, Chloride 106, Carbon Dioxide 30.0, Anion Gap 3 L, BUN 26 H, Creatinine 1.46 H, Estim Creat Clear Calc 74.17, Est GFR (MDRD) Af Amer 62, Est GFR (MDRD) Non-Af 51 L, BUN/Creatinine Ratio 17.8, Glucose 125 H, Calcium 9.2, C-React Prot Ext Range 45.00 H Imaging Radiology Impression Tibia/Fibula X-Ray 01/03/24 10:45 IMPRESSION: Soft tissue laceration with tiny air bubbles within the soft tissues in the left leg overlying the lateral anterior aspect of the fibula. No radiopaque foreign body is seen. Electronically Signed: Jesse Stewart MD at 11:15 EDT , Assessment & Plan Assessment/Plan (1) Wound of right leg: (2) Infected wound: (3) Chronic venous insufficiency: (4) Elevated serum creatinine: PLAN: Plan Infected right leg wounds -Sent in for debridement by podiatry -Polymicrobial cultures at last cultures so will cover broadly with levofloxacin and vancomycin for now -ESR and CRP are elevated -Consult infectious disease -Culture wounds -Blood cultures are pending -Wound care consultation -Elevate extremity -Consult podiatry -Hold Eliquis -Patient is unsure of last dose -OR for debridement per podiatry Bradycardia -Patient with asymptomatic bradycardia next-is on a high dose of beta-maren 25 mg p.o. twice daily -We will monitor clinically may need to cut back on his dosing depending on heart rates during his hospitalization Chronic anemia -Hemoglobin at the end of October was 9.3 -Currently 11.4 and does not show any signs of dehydration -Baseline is unclear at this time but will repeat CBC in a.m. -Had EGD and colonoscopy in October 2023 -EGD showed normal esophagus, hiatal hernia, duodenal ulcer that was treated with heater probe and nonbleeding duodenal ulcers -Colonoscopy showed fair prep, anal fissure, nonbleeding internal hemorrhoids, anal figure was treated with argon plasma coagulation and three 1 to 2 mm polyps were found in the sigmoid colon, and ascending colon with removal via hot snare with clip placement and a single ulcer was found at the hepatic flexure that was treated with heater probe -Start Protonix 40 mg daily--> patient does not appear to be taking at baseline -Continue home iron Elevated serum creatinine on CKD stage II-IIIa -Baseline serum creatinine appears to run between 1.1-1.3 -1.46 on admission -Patient does not appear to be overtly volume depleted -Avoid nephrotoxins with CKD -repeat lab in a.m. Generalized weakness/debility due to advancing age and chronic comorbidities/deconditioning -Patient currently living at [facility] -Plan is to return there at discharge -PT/OT consultation -Case management/social work consulted to assist with discharge planning DM-2 -Hemoglobin A1c from October was 5.2 -Hold Mounjaro -continue subcu insulin- basal -Cardiac/carb controlled diet -SSI -Accu-Cheks as ordered Paroxysmal atrial fibrillation/flutter -Hold Eliquis -Continue home Coreg Valvular heart disease -Status post aortic valve replacement-bioprosthetic -No current issues Hypertension -Continue amlodipine -Continue home carvedilol BPH with obstruction -Continue home Flomax -Will refer to urology at discharge as patient has multiple complaints with regards to this History of DVT -Chronic right lower extremity DVT noted on imaging at [place] on 10/22/2023 -Will need to hold Eliquis for surgery and restart as soon as possible following -If not able to start immediately after surgery will need heparin drip versus Lovenox subcu PAEWL -CPAP ordered nocturnally and with naps -Would recommend if patient receives anesthesia to utilize CPAP and if requires intubation extubate to CPAP Bilateral lower extremity lymphedema -Chronic and stable -Continue home Bumex COPD -Continue home inhalers/as needed aerosols -No acute issues Chronic constipation -Continue home bowel regimen -as needed senna ordered Diabetic neuropathy -Continue home gabapentin Insomnia -Continue home trazodone -Continue home melatonin Morbid obesity -BMI is 41.7 -Complicates treatment, prognosis, outcomes -Recommend weight loss -patient is on Mounjaro DVT prophylaxis -Subcu Lovenox 40 twice daily until can restart Eliquis CODE STATUS -DNR CCA with no intubation per paperwork from nursing facility Charges/Coding Visit Charges Inpatient E&M: 96485 Init Hosp L3
[2024-01-03 15:42] LABS: M R Staph aureus DNA By PCR Negative (Negative); Probe Check PASS; Specimen Processing Control PASS; Staph aureus DNA By PCR NEGATIVE (Negative)
--- NOTE | 2024-01-03 16:33 | PCM.CONS.GEN ---
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 All findings were discussed with the patient. All questions were answered to the patient's satisfaction. 2 view right lower extremity tib-fib radiographs taken in the emergency room today. There shows evidence of soft tissue defect at 3 different locations on the lateral leg with no evidence of emphysema. There is evidence of soft tissue air. No evidence of periosteal reaction or lysis of bone along the fibula. Plan will be to take the patient to the operating room to perform deroofing of all devitalized skin to the lateral aspect of the right lower extremity, possible incision bone cortex, surgical skin graft site prep with application of skin graft substitute, as well as application of negative pressure wound VAC to the right lower extremity. Please clear the patient medically with recommendation for surgical intervention based on OR availability. Wound care orders given for wound care nurse, Dakin solution, dry sterile dressing single-layer Garcias compression bandage to right lower extremity. WBC: 6.7 ESR: 52 CRP: 45.0 Glucose: 125 HbA1c (11/02/2023): 5.2 Medicine: On board, medical management, IV antibiotics: Levofloxacin and vancomycin Infectious disease: Consult pending Social work: On board for discharge planning Dietary: On board Please reach out to Dr. Shannon with any questions or concerns Thank you for the consultation! (2) Lymphedema of right lower extremity: HPI Consult Data Date of Consult: 01/03/24 HPI Narrative Reason for Consultation: Right leg ulceration and infection HPI Narrative: SHANELLE HUNTER, is a 68 M who presented to the emergency room department at [facility] on 01/03/2024 after being sent from [facility] by podiatry, Dr. Shannon, for worsening right lower extremity ulcerations. Patient is well-known to me at the wound care center and also is being followed by Dr. Moshe Kitchen MD. Patient had a previous hospital admission and had his right leg cultured on 11/30/2023 that showed evidence of polymicrobial infection with growth of E. coli, Proteus mirabilis, Pseudomonas aeruginosa, Enterococcus faecalis, Bacteroides fragilis and Prevotella. Patient has been getting PICC line antibiotics however he states that the PICC line somehow came out approximately 1 week ago. Patient also states that he had a recent fall the other day and hit his forehead while at the nursing station but refused to be taken to emergency department via squad for evaluation. Patient does have history of inflamed prostate and is on Flomax to help with urination. He does have a history of hernia repair. Patient has been getting dressing changes at the senior living. He is also worried about returning to the particular senior living as he is unsure if they can care for his wound after surgery. He denies trauma. Denies constitutional symptoms. Of his legs at this time. Podiatry was consulted for surgical evaluation and intervention of the worsening right leg ulcerations. 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 BPH (benign prostatic hyperplasia) Atrial fibrillation History of deep vein thrombosis (DVT) of lower extremity Blood loss anemia Hypertension Hiatal hernia Diverticulosis Debility Morbid obesity with BMI of 40.0-44.9, adult Obstructive sleep apnea on CPAP History of congestive heart failure Impaired mobility SOB (shortness of breath) Recurrent right inguinal hernia Heart murmur Heart failure 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 2 diabetes mellitus Aortic valve disease Renal mass, left History of DVT (deep vein thrombosis) Valvular heart disease Atrial fibrillation/flutter Chronic acquired lymphedema Chronic anemia Venous insufficiency (chronic) (peripheral) Ulcer of left lower extremity with fat layer exposed Superficial thrombosis of left lower extremity Peripheral vascular disease of lower extremity with ulceration Sleep apnea Morbid obesity DM2 (diabetes mellitus, type 2) Benign essential HTN Home Medications ?Medication ?Instructions ?Recorded ?Last Taken ?Type aspirin 81 mg tablet,delayed 81 mg PO DAILY 03/17/19 Unknown History release carvedilol 25 mg tablet 25 mg PO BID 03/17/19 Unknown History amlodipine 5 mg tablet 5 mg PO DAILY 10/28/23 Unknown History apixaban 5 mg tablet (Eliquis) 5 mg PO BID 10/28/23 Unknown History atorvastatin 20 mg tablet 20 mg PO QHS 10/28/23 Unknown History ferrous sulfate 325 mg (65 mg 325 mg PO DAILY 10/28/23 Unknown History iron) tablet (Feosol) gabapentin 300 mg capsule 300 mg PO TID 10/28/23 Unknown History melatonin 3 mg tablet 3 mg PO QHS 10/28/23 Unknown History acetaminophen 325 mg tablet 650 mg (2 x 325 mg) PO Q4H PRN PRN 11/03/23 Unknown Rx Fever, pain 1-04/20 #0 tabs albuterol sulfate 2.5 mg/3 mL 2.5 mg (3 mL) inhalation Q2H PRN 11/03/23 Unknown Rx (0.083 %) solution for nebulization PRN Dyspnea, wheezing #0 mL budesonide 0.5 mg/2 mL suspension 0.5 mg (2 mL) inhalation BID.RT #0 11/03/23 Unknown Rx for nebulization mL insulin glargine-yfgn 100 unit/mL 40 unit (0.4 mL) subcut DAILY #0 mL 11/03/23 Unknown Rx (3 mL) subcutaneous pen menthol 0.44 %-zinc oxide 20.6 % 1 applic topical BID #0 grams 11/03/23 Unknown Rx topical ointment (Calmoseptine) nystatin 100,000 unit/gram topical 1 applic topical TID #0 grams 11/03/23 Unknown Rx powder (Nyamyc) potassium chloride 20 mEq 20 meq PO BIDCM #0 tabs 11/03/23 Unknown Rx tablet,extended release(part/cryst) ascorbic acid (vitamin C) 250 mg 250 mg PO DAILY 11/29/23 Unknown History tablet bumetanide 1 mg tablet 1 mg PO QDAY 12/22/23 Unknown History insulin lispro 100 unit/mL 1 sliding scale dose subcut 12/22/23 Unknown History subcutaneous solution USEASDIRECTD tamsulosin 0.4 mg capsule 0.8 mg PO DAILY 12/22/23 Unknown History tirzepatide 5 mg/0.5 mL 5 mg subcut SA 12/22/23 Unknown History subcutaneous pen injector (Mounaguedaro) budesonide-formoterol HFA 160 2 inh inhalation BID 01/03/24 Unknown History mcg-4.5 mcg/actuation aerosol inhaler (Symbicort) docusate sodium 100 mg capsule 100 mg PO BID 01/03/24 Unknown History (Col-Rite) hydrocodone-acetaminophen 5-325mg 1 tab PO Q8H PRN pain 01/03/24 Unknown History 5mg-325mg trazodone 50 mg tablet 50 mg PO QHS 01/03/24 Unknown History Allergy/AdvReac Type Severity Reaction Status Date / Time ibuprofen (From Nuprin) Allergy Unknown Verified 01/03/24 09:36 Family History Mother Diabetes Father Cirrhosis of liver Alcoholism Surgical History History of embolic filter insertion History of right inguinal hernia repair H/O colectomy History of repair of inguinal hernia History of bladder surgery History of tonsillectomy and adenoidectomy History of right inguinal hernia repair S/P AVR (aortic valve replacement) Social History housing: senior living Smoking Status: Former smoker how long ago did patient quit smoking: Quit ~ 20 yrs prior, smoked age 15 until quit ~ 2 ppd. alcohol intake: never substance use type: does not use Physical Exam Narrative Vascular: DP and PT pulses are palpable to the right lower extremity. Nonpitting edema appreciated to the right lower extremity. Skin temperature gradient is warm to warm from proximal ankles to distal digit. No focal increase appreciated. Neurological: Light touch intact. Patient response to painful stimuli. Protective sensation is diminished. Dermatological: Multiple full-thickness ulceration appreciated to right lateral leg. Full-thickness ulceration superiorly measures 1.6 x 2.5 x 2.7 cm. Full-thickness middle ulceration measures 4.3 x 5.3 x 3.0 cm. Full-thickness inferior ulceration measures 8.0 x 8.0 x 2.8 cm. Musculoskeletal: Mild pain to palpation to all 3 full-thickness ulceration. No pain with calf pression. Lab / Micro Data 01/03/24 10:55 01/03/24 10:55 Labs: Laboratory Results - last 24 hr 01/03/24 10:33: Lactic Acid 1.2 01/03/24 10:55: WBC 6.7, RBC 4.29 L, Hgb 11.4 L, Hct 37.8 L, MCV 88.1, MCH 26.6 L, MCHC 30.2 L, RDW Std Deviation 52.0 H, RDW Coeff of Carlito 16.1 H, Plt Count 200, MPV 12.3 H, Immature Gran % (Auto) 0.400, Neut % (Auto) 72.1 H, Lymph % (Auto) 12.9 L, [place] % (Auto) 11.2 H, Eos % (Auto) 3.0, Baso % (Auto) 0.4, Absolute Neuts (auto) 4.8, Absolute Lymphs (auto) 0.86, Nucleated RBC % 0, ESR 52 H, Sodium 139, Potassium 4.8, Chloride 106, Carbon Dioxide 30.0, Anion Gap 3 L, BUN 26 H, Creatinine 1.46 H, Estim Creat Clear Calc 74.17, Est GFR (MDRD) Af Amer 62, Est GFR (MDRD) Non-Af 51 L, BUN/Creatinine Ratio 17.8, Glucose 125 H, Calcium 9.2, C-React Prot Ext Range 45.00 H 01/03/24 13:20: S.aureus Protein A PCR NEGATIVE, MRSA (PCR) Negative Imaging Radiology Impression Tibia/Fibula X-Ray 01/03/24 10:45 IMPRESSION: Soft tissue laceration with tiny air bubbles within the soft tissues in the left leg overlying the lateral anterior aspect of the fibula. No radiopaque foreign body is seen. Electronically Signed: Jesse Stewart MD at 11:15 EDT ,
[2024-01-03] MEDS: Acetaminophen 500 MG Tablet 1000 MG PO ×2 (16:42→22:07)
[2024-01-03] MEDS: Juven (unflavored) Packet 1 PACKET PO (16:42)
[2024-01-03] MEDS: Gabapentin 300 MG Capsule PO ×2 (16:43→22:08)
[2024-01-03] MEDS: levoFLOXacin IV 750 MG in Empty Viaflex Q24 100 MG IV (16:53)
[2024-01-03] MEDS: Vancomycin HCl 2,000 MG in 0.9% Normal Saline (500mL Bag) 500 ML 250 MG IV (16:56)
[2024-01-03 17:01] LABS: Bedside Glucose 88 mg/dL (74-106)
--- NOTE | 2024-01-03 19:25 | NURSING ---
attempted to place 16 fr martines. maury pacheco rn tried as well.
[2024-01-03] MEDS: Albuterol 2.5 MG/3 ML VIAL.NEB. INHALATION (20:09)
[2024-01-03] MEDS: Budesonide Respules 0.5 MG/2 ML AMPUL.NEB. INHALATION (20:10)
--- NOTE | 2024-01-03 20:10 | PCM.RX.CS ---
Consult Antibiotic Management Pharmacy has been consulted to manage selected antibiotic: Vancomycin Type of Intervention Type of Consult: New start Suspected Infection Suspected Infection: Skin/Soft tissue Prior Doses of Antibiotics Prior Doses of Antibiotics Received/Current Regimen: Received 2000mg iv x 1 as initial dose. Labs Labs: Sodium 139 mmol/L (136-145) 01/03/24 10:55 Potassium 4.8 mmol/L (3.5-5.1) 01/03/24 10:55 Chloride 106 mmol/L (98-107) 01/03/24 10:55 Carbon Dioxide 30.0 mmol/L (21.0-32.0) 01/03/24 10:55 Anion Gap 3 (5-15) L 01/03/24 10:55 BUN 26 mg/dL (7-18) H 01/03/24 10:55 Creatinine 1.46 mg/dL (0.70-1.30) H 01/03/24 10:55 Est GFR (MDRD) Af Amer 62 mL/min (>60) 01/03/24 10:55 Est GFR (MDRD) Non-Af 51 mL/min (>60) L 01/03/24 10:55 BUN/Creatinine Ratio 17.8 RATIO (10-20) 01/03/24 10:55 Glucose 125 mg/dL (74-106) H 01/03/24 10:55 Dosing Weight Weight used for dosin.5 kg Estimated Creatinine Clearance Estimated Creatinine Clearance: 74ml/min Goal Trough Goal Trough: 15-20 mcg/mL Pharmacy Plan for Drug Dosing Pharmacy Plan for Drug Dosing: Recommend starting dose of 1750mg iv q12h per protocol. Trough level before 4th total dose. Pharmacy Service will continue to monitor and adjust dosing as required. Follow-Up Labs Follow-Up Labs: Trough: Vancomycin (6..24 0430)
[2024-01-03] MEDS: oxyCODONE 5 MG Tablet PO (22:08)
[2024-01-03] MEDS: Docusate Sodium 100 MG Capsule PO (22:09)
[2024-01-03] MEDS: Enoxaparin 40 MG/0.4 ML Syringe SC (22:09)
[2024-01-03] MEDS: Carvedilol 25 MG Tablet PO (22:09)
[2024-01-03] MEDS: MELATONIN 3 MG TABLET PO (22:10)
[2024-01-03] MEDS: Nystatin Powder 15gm Bottle 1 APPLIC TOPICAL (22:10)
[2024-01-03] MEDS: Atorvastatin Calcium 20 MG Tablet PO (22:10)
[2024-01-03] MEDS: traZODone 50 MG Tablet PO (22:10)
[2024-01-03] MEDS: Menthol/Lanolin/Calamine/Znox 113 GM Tube 1 APPLIC TOPICAL (22:35)
[2024-01-03 22:38] LABS: Bedside Glucose 107 mg/dL (74-106)
[2024-01-04] VITALS (9 sets, daily range): BP systolic 125–139; BP diastolic 61–88; PULSE 41–53; RESP 12–18; TEMP 36.4–37; O2SAT 92–99
[2024-01-04] MEDS: Albuterol 2.5 MG/3 ML VIAL.NEB. INHALATION ×2 (06:50→19:50)
[2024-01-04] MEDS: Budesonide Respules 0.5 MG/2 ML AMPUL.NEB. INHALATION ×2 (06:50→19:51)
[2024-01-04 07:08] LABS: ALB/GLOB Ratio 0.7 RATIO (0.9-2.4); AST(SGOT) 14 U/L (15-37); Alanine Aminotransfer ALT/SGPT 16 U/L (16-61); Albumin, Serum 2.5 g/dL (3.2-5.0); Alkaline Phosphatase 66 U/L (45-117); Anion Gap 4 (5-15); BUN 28 mg/dL (7-18); BUN/Creat Ratio 23.5 RATIO (10-20); Calcium,Total 8.6 mg/dL (8.5-10.1); Chloride 107 mmol/L (98-107); Creatinine, Serum 1.19 mg/dL (0.70-1.30); EST Glomerular Filtration Rate 65 mL/min (>60); Est Glom Filt Rate - Afr Amer 79 mL/min (>60); Estimated Creatinine Clearance 91.02 ml/min; Globulin 3.7 g/dL (2.2-4.2); Glucose 100 mg/dL (74-106); Magnesium 2.2 mg/dL (1.6-2.6); Phosphorus 3.5 mg/dL (2.5-4.9); Potassium 4.2 mmol/L (3.5-5.1); Protein, Total 6.2 g/dL (6.4-8.2); Sodium Level 139 mmol/L (136-145)
[2024-01-04] MEDS: Vancomycin HCl 1,750 MG in 0.9% Normal Saline (500mL Bag) 500 ML 250 MG IV ×2 (07:12→16:55)
[2024-01-04] MEDS: Gabapentin 300 MG Capsule PO ×3 (07:15→22:09)
[2024-01-04] MEDS: Acetaminophen 500 MG Tablet 1000 MG PO ×3 (07:15→22:10)
[2024-01-04 07:35] LABS: Bedside Glucose 107 mg/dL (74-106)
--- NOTE | 2024-01-04 08:06 | NURSING ---
Pt inappropriate and verbally threatened nursing staff at , stating multiple times If you wake me up tonight I will hit you. Staff advised pt that it is not acceptable to threaten staff with bodily harm. Pt also told staff that he did not want his dressing changed as it had already been changed during the day. Staff member educated pt on the need to change dressing more than once per day. Pt continued to refuse. This AM when it was time to awaken pt, the pt refused to speak to nursing staff.
--- NOTE | 2024-01-04 08:21 | EKG12_ITS ---
Test Reason : PREOP Blood Pressure : / mmHG Vent. Rate : 045 BPM Atrial Rate : 045 BPM P-R Int : 240 ms QRS Dur : 126 ms QT Int : 508 ms P-R-T Axes : 086 055 048 degrees QTc Int : 439 ms Sinus bradycardia with sinus arrhythmia with 1st degree A-V block Non-specific intra-ventricular conduction block Nonspecific T wave abnormality Abnormal ECG When compared with ECG of 02-NOV-2023 04:32, No significant change was found Confirmed by JAISON KWAN, JOSEPH ([id number]), subeditor STAS QUIÑONES ([id number]) on 01/11/2024 5:58:29 AM Referred By: EMILY Confirmed By:JOSEPH BLACKWOOD MD
--- NOTE | 2024-01-04 08:21 | RAD_ITS ---
STUDY: X-RAY CHEST REASON FOR EXAM: Male, 68 years old. Preop TECHNIQUE: Single AP portable view of the chest. COMPARISON: Comparison is made with prior study October 28, 2023. FINDINGS: Mild degree of vascular congestion. Blunting of the left costo phrenic angle and mild left basilar atelectasis. Sternal cerclage wires and vascular clips are present from a prior sternotomy and coronary artery bypass graft procedure (CABG). Normal mediastinum and stacey. Normal visualized pulmonary arteries. Normal visualized aortic arch and descending thoracic aorta. There are diffuse degenerative changes of the visualized thoracic spine. Normal visualized ribs, clavicles, and shoulders. There is no demonstrated abnormality of the visualized soft tissue structures of the upper abdomen. RAD/Chest 1 View (Portable) IMPRESSION: Mild degree of volar mesenteric congestion and blunting of the left costophrenic angle with mild left basilar atelectasis. Electronically Signed: Jesse Stewart MD at 9:31 EDT ,
[2024-01-04] MEDS: Docusate Sodium 100 MG Capsule PO (09:30)
[2024-01-04] MEDS: Tamsulosin HCl 0.4 MG Capsule 0.8 MG PO (09:30)
[2024-01-04] MEDS: Aspirin E.C. 81 MG Tablet PO (09:31)
[2024-01-04] MEDS: Ferrous Sulfate 325 MG Tablet PO (09:31)
[2024-01-04] MEDS: Ascorbic Acid 500 MG Tablet 250 MG PO (09:31)
[2024-01-04] MEDS: amLODIPine 5 MG Tablet PO (09:31)
[2024-01-04] MEDS: Bumetanide 2 MG Tablet 1 MG PO (09:32)
[2024-01-04] MEDS: Enoxaparin 40 MG/0.4 ML Syringe SC ×2 (09:32→22:09)
[2024-01-04] MEDS: Carvedilol 25 MG Tablet PO ×2 (09:32→22:09)
[2024-01-04] MEDS: levoFLOXacin IV 750 MG in Empty Viaflex Q24 100 MG IV (09:39)
[2024-01-04] MEDS: Juven (unflavored) Packet 1 PACKET PO ×2 (09:39→16:53)
[2024-01-04] MEDS: 0.9% Saline Lock 10 ML Syringe IV ×2 (09:40→16:55)
[2024-01-04] MEDS: Insulin Glargine-YFGN 100 UNIT/ML Pen 40 UNIT SC (09:40)
[2024-01-04] MEDS: Menthol/Lanolin/Calamine/Znox 113 GM Tube 1 APPLIC TOPICAL ×2 (09:41→22:10)
[2024-01-04 10:14] LABS: Absolute Lymphocyte Count 0.91 X10^3/uL (0.83-4.51); Absolute Neutrophil Count 3.3 X10^3/uL (2.0-7.7); Basophil# 0.04 X10^3/uL; Basophil% 0.8 % (0-1); Eosinophil# 0.23 X10^3/uL; Eosinophils% 4.4 % (0-5); Hematocrit 33.4 % (40-54); Hemoglobin 9.8 g/dL (13.0-16.5); Lymphocyte # 0.91 X10^3/ul (0.83-4.51); Lymphocyte % 17.3 % (19-41); Mean Corp Hgb Conc 29.3 g/dL (32-36); Mean Corpuscular Hgb 26.3 pg (27.0-32.0); Mean Corpuscular Volume 89.8 fL (80-94); Mean Platelet Vol. 13.3 fl (6.2-12.0); Monocyte# 0.73 X10^3/uL; Monocyte% 13.9 % (0-10); NRBC Flagged by Analyzer 0 % (0-5); Neutrophil # 3.33 X10^3/uL (2.7-7.7); Neutrophil % 63.4 % (47-70); Platelet Count 158 K/mm3 (150-450); RBC Distribution Width CV 16.5 % (11.6-14.6); RBC Distribution Width SD 53.7 fl (35.1-43.9); Red Blood Count 3.72 M/mm3 (4.6-6.2); White Blood Count 5.3 K/mm3 (4.4-11.0)
--- NOTE | 2024-01-04 11:42 | CASEMGMT ---
Social Work SW called [facility], confirmed pt is from there from the rehab side, there under insurance. Pt will need a precert to return. SW let admissions know pt having surgery so not ready to return until after that. Pt did tell SOREN Fried he would like to return to [facility], so SNF list not needed. D/C logistics planning manager Taisha sending updates. Plan: Return to [facility] when medically appropriate and precert attained. EMANUEL Duque
--- NOTE | 2024-01-04 11:45 | CASEMGMT ---
Discharge Planning Updates sent to [facility] via [facility]. Taisha Schaefer DC Planning Asst.
--- NOTE | 2024-01-04 11:58 | CASEMGMT ---
QUIN DOTY Assessment Face to Face with patient for initial transition planning/care coordination assessment. QUIN DOTY introduced self and role at [facility], pt voices understanding. Pt is A&Ox4 and is resting comfortably in bed and is calm. Care providers, pharmacy, and demographics verified. Admitting dx: Infected Diebetic Leg Wound PCP: Gregg Reyna Specialists: Managing Member & Project Manager Process Development. Pt could not recall the names Preferred Pharmacy: SNF/ [facility] if needed Insurance: [employer] Prescription Benefit: Yes LNOK: Hu Alvarez (Son), Braxton Calixto (Friend) Living Arrangements: Pt is a resident at the [facility] ADLs/IADLs: SNF assists DME: SNF provides Pt?s goal: Save his leg and return to [facility] Plan: Pt is planned for surgery per Dr. Shannon tentatively on or when OR permits. Pt states that this is his last chance to save his leg. This RN CM provided emotional support at this time. Pt states that he does plan to return to the SNF at time of DC. SW is aware and to follow. Mervin Abraham RN, CM
[2024-01-04] MEDS: Insulin Lispro 100 UNIT/ML INSULN.PEN SC (12:05)
[2024-01-04] MEDS: DAKIN'S SOL HALF STRENGTH (=0.25%) 1 APPLIC TOPICAL ×2 (13:41→22:10)
[2024-01-04] MEDS: Nystatin Powder 15gm Bottle 1 APPLIC TOPICAL ×2 (13:42→22:08)
--- NOTE | 2024-01-04 14:52 | CHAPLAIN ---
Type of Pastoral Visit _x__ Initial Visit ___ Follow-up Visit ___ On-call Visit ___ General Patient Visit ___ Spiritual Assessment ___ Family Conference ___ Bereavement ___ Rapid Response ___ Code Blue ___ Other (describe below) Pastoral Care Referral From _x__ Patient ___ Family ___ Nurse ___ Physician ___ Surgical Processor ___ Stunt Man ___ Other (describe below) Sacrament/Intervention _x__ Active listening ___ Anointing ___ Adventist ___ Bereavement ___ Communion _x__ Aziza exploration ___ _x__ Life review _x__ Prayer ___ Reconciliation ___ Sacrament of Sick _x__ Supportive presence ___ Wedding ___ Other (describe below) Pastoral Comments patient is welcoming and gives long story of his health situation; pt gives testimonies of God's goodness to him and how God has brought people into his life to help him focus and receive help; pt is talkative about life and his samaritan which is growing; pt welcomew prayer and wants more visits as possible
--- NOTE | 2024-01-04 15:25 | CON.PCM.ID_ITS ---
Assessment & Plan Assessment/Plan (1) Infected wound: PLAN: Recent wound cx with ecoli, proteus, PsA, enterococcus, anaerobes. Wound cx with GNR here. Will cover with vanc/zosyn for now. OR planned with Dr. Shannon. Will follow, thank you HPI Consult Data Date of Consult: 01/04/24 HPI Narrative Reason for Consultation: osteo HPI Narrative: SHANELLE HUNTER, is a 68 M with DM, CKD, PE, and COPD, presented 01/03/24 to ED from [facility] with worsening RLE wounds. Sees Dr. Shannon, reports progressive ulceration, pain, drainage. No fever or chills, no recent abx. Admitted, started on vanc/levaquin. OR planned. Full ROS performed and neg except as noted above. 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 BPH (benign prostatic hyperplasia) Atrial fibrillation History of deep vein thrombosis (DVT) of lower extremity Blood loss anemia Hypertension Hiatal hernia Diverticulosis Debility Morbid obesity with BMI of 40.0-44.9, adult Obstructive sleep apnea on CPAP History of congestive heart failure Impaired mobility SOB (shortness of breath) Recurrent right inguinal hernia Heart murmur Heart failure 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 2 diabetes mellitus Aortic valve disease Renal mass, left History of DVT (deep vein thrombosis) Valvular heart disease Atrial fibrillation/flutter Chronic acquired lymphedema Chronic anemia Venous insufficiency (chronic) (peripheral) Ulcer of left lower extremity with fat layer exposed Superficial thrombosis of left lower extremity Peripheral vascular disease of lower extremity with ulceration Sleep apnea Morbid obesity DM2 (diabetes mellitus, type 2) Benign essential HTN Home Medications ?Medication ?Instructions ?Recorded ?Last Taken ?Type aspirin 81 mg tablet,delayed 81 mg PO DAILY 03/17/19 Unknown History release carvedilol 25 mg tablet 25 mg PO BID 03/17/19 Unknown History amlodipine 5 mg tablet 5 mg PO DAILY 10/28/23 Unknown History apixaban 5 mg tablet (Eliquis) 5 mg PO BID 10/28/23 Unknown History atorvastatin 20 mg tablet 20 mg PO QHS 10/28/23 Unknown History ferrous sulfate 325 mg (65 mg 325 mg PO DAILY 10/28/23 Unknown History iron) tablet (Feosol) gabapentin 300 mg capsule 300 mg PO TID 10/28/23 Unknown History melatonin 3 mg tablet 3 mg PO QHS 10/28/23 Unknown History acetaminophen 325 mg tablet 650 mg (2 x 325 mg) PO Q4H PRN PRN 11/03/23 Unknown Rx Fever, pain 1-04/20 #0 tabs albuterol sulfate 2.5 mg/3 mL 2.5 mg (3 mL) inhalation Q2H PRN 11/03/23 Unknown Rx (0.083 %) solution for nebulization PRN Dyspnea, wheezing #0 mL budesonide 0.5 mg/2 mL suspension 0.5 mg (2 mL) inhalation BID.RT #0 11/03/23 Unknown Rx for nebulization mL insulin glargine-yfgn 100 unit/mL 40 unit (0.4 mL) subcut DAILY #0 mL 11/03/23 Unknown Rx (3 mL) subcutaneous pen menthol 0.44 %-zinc oxide 20.6 % 1 applic topical BID #0 grams 11/03/23 Unknown Rx topical ointment (Calmoseptine) nystatin 100,000 unit/gram topical 1 applic topical TID #0 grams 11/03/23 Unknown Rx powder (Nyamyc) potassium chloride 20 mEq 20 meq PO BIDCM #0 tabs 11/03/23 Unknown Rx tablet,extended release(part/cryst) ascorbic acid (vitamin C) 250 mg 250 mg PO DAILY 11/29/23 Unknown History tablet bumetanide 1 mg tablet 1 mg PO QDAY 12/22/23 Unknown History insulin lispro 100 unit/mL 1 sliding scale dose subcut 12/22/23 Unknown History subcutaneous solution USEASDIRECTD tamsulosin 0.4 mg capsule 0.8 mg PO DAILY 12/22/23 Unknown History tirzepatide 5 mg/0.5 mL 5 mg subcut SA 12/22/23 Unknown History subcutaneous pen injector (Mounjaro) budesonide-formoterol HFA 160 2 inh inhalation BID 01/03/24 Unknown History mcg-4.5 mcg/actuation aerosol inhaler (Symbicort) docusate sodium 100 mg capsule 100 mg PO BID 01/03/24 Unknown History (Col-Rite) hydrocodone-acetaminophen 5-325mg 1 tab PO Q8H PRN pain 01/03/24 Unknown History 5mg-325mg trazodone 50 mg tablet 50 mg PO QHS 01/03/24 Unknown History Allergy/AdvReac Type Severity Reaction Status Date / Time ibuprofen (From Nuprin) Allergy Unknown Verified 01/03/24 09:36 Family History Mother Diabetes Father Cirrhosis of liver Alcoholism Surgical History History of embolic filter insertion History of right inguinal hernia repair H/O colectomy History of repair of inguinal hernia History of bladder surgery History of tonsillectomy and adenoidectomy History of right inguinal hernia repair S/P AVR (aortic valve replacement) Social History [facility] Smoking Status: Former smoker how long ago did patient quit smoking: Quit ~ 20 yrs prior, smoked age 15 until quit ~ 2 ppd. alcohol intake: never substance use type: does not use Physical Exam Const alert, oriented x3 and no apparent distress General Appearance: cooperative HEENT normocephalic and head/scalp atraumatic Eyes PERRL and EOMs intact bilaterally Neck supple and No nodes Resp normal air movement and clear to auscultation bilaterally Cardio regular rate and regular rhythm GI soft to palpation, non-tender and non-distended Extremity General Extremity: edema Skin Skin Narrative: RLE wrapped, multiple wounds present Neuro CN's II-XII intact bilaterally Lab / Micro Data Attestation: I reviewed the patient's lab results. 01/04/24 05:21 01/04/24 05:21 Labs: Laboratory Results - last 24 hr 01/03/24 13:20: S.aureus Protein A PCR NEGATIVE, MRSA (PCR) Negative 01/03/24 16:42: POC Glucose 88 01/03/24 22:15: POC Glucose 107 H 01/04/24 05:21: WBC 5.3, RBC 3.72 L, Hgb 9.8 L, Hct 33.4 L, MCV 89.8, MCH 26.3 L , MCHC 29.3 L, RDW Std Deviation 53.7 H, RDW Coeff of Carlito 16.5 H, Plt Count 158, MPV 13.3 H, Immature Gran % (Auto) 0.200, Neut % (Auto) 63.4, Lymph % (Auto) 17.3 L, [place] % (Auto) 13.9 H, Eos % (Auto) 4.4, Baso % (Auto) 0.8, Absolute Neuts (auto) 3.3, Absolute Lymphs (auto) 0.91, Nucleated RBC % 0, Sodium 139, Potassium 4.2, Chloride 107, Carbon Dioxide 28.0, Anion Gap 4 L, BUN 28 H, Creatinine 1.19, Estim Creat Clear Calc 91.02, Est GFR (MDRD) Af Amer 79, Est GFR (MDRD) Non-Af 65, BUN/Creatinine Ratio 23.5 H, Glucose 100, Calcium 8.6, Phosphorus 3.5, Magnesium 2.2, Total Bilirubin 0.40, AST 14 L, ALT 16, Alkaline Phosphatase 66, Total Protein 6.2 L, Albumin 2.5 L, Globulin 3.7, A lbumin/Globulin Ratio 0.7 L 01/04/24 07:06: POC Glucose 107 H Micro: Microbiology 01/03/24 13:05 Wound - Leg, Right Gram Stain - Final 01/03/24 13:05 Wound - Leg, Right Wound Culture - Preliminary Gram negative cleo Imaging Radiology Impression Chest X-Ray 01/04/24 08:21 IMPRESSION: Mild degree of volar mesenteric congestion and blunting of the left costophrenic angle with mild left basilar atelectasis. Electronically Signed: Jesse Stewart MD at 9:31 EDT ,
[2024-01-04 16:18] LABS: Bedside Glucose 152 mg/dL (74-106)
--- NOTE | 2024-01-04 16:35 | PCM.PN.HOSP ---
Reason for Visit Reason for Visit: Right lower extremity wound Subjective Subjective Patient denies any complaints at this time. Agreeable to surgery on . Denies any current needs. Objective Data Objective Data Vital Signs: Vital Signs Temp Pulse Resp BP Pulse Ox O2 Del Method FiO2 97.6 F L 48 L 15 139/74 H 99 Room Air 30 01/04/24 14:32 01/04/24 14:32 01/04/24 14:32 01/04/24 14:32 01/04/24 14:32 01/04/24 14:32 01/03/24 22:22 Oxygen Delivery Method Room Air Weight: 147.474 kg Body Mass Index (BMI) 41.7 Intake & Output: Intake and Output for Last 24 Hours 01/02/24 01/03/24 01/04/24 23:59 23:59 23:59 Intake Total 690.00 / 690.00 535 / 535 Balance 690.00 / 690.00 535 / 535 Lab / Micro Data 01/04/24 05:21 01/04/24 05:21 Labs: Laboratory Results - last 24 hr 01/03/24 16:42: POC Glucose 88 01/03/24 22:15: POC Glucose 107 H 01/04/24 05:21: WBC 5.3, RBC 3.72 L, Hgb 9.8 L, Hct 33.4 L, MCV 89.8, MCH 26.3 L, MCHC 29.3 L, RDW Std Deviation 53.7 H, RDW Coeff of Carlito 16.5 H, Plt Count 158, MPV 13.3 H, Immature Gran % (Auto) 0.200, Neut % (Auto) 63.4, Lymph % (Auto) 17.3 L, [place] % (Auto) 13.9 H, Eos % (Auto) 4.4, Baso % (Auto) 0.8, Absolute Neuts (auto) 3.3, Absolute Lymphs (auto) 0.91, Nucleated RBC % 0, Sodium 139, Potassium 4.2, Chloride 107, Carbon Dioxide 28.0, Anion Gap 4 L, BUN 28 H, Creatinine 1.19, Estim Creat Clear Calc 91.02, Est GFR (MDRD) Af Amer 79, Est GFR (MDRD) Non-Af 65, BUN/Creatinine Ratio 23.5 H, Glucose 100, Calcium 8.6, Phosphorus 3.5, Magnesium 2.2, Total Bilirubin 0.40, AST 14 L, ALT 16, Alkaline Phosphatase 66, Total Protein 6.2 L, Albumin 2.5 L, Globulin 3.7, Albumin/Globulin Ratio 0.7 L 01/04/24 07:06: POC Glucose 107 H 01/04/24 11:53: POC Glucose 152 H Micro: Microbiology 01/03/24 13:05 Wound - Leg, Right Gram Stain - Final 01/03/24 13:05 Wound - Leg, Right Wound Culture - Preliminary Gram negative cleo Radiography Diagnostic Testing: Radiology Impression Chest X-Ray 01/04/24 08:21 IMPRESSION: Mild degree of volar mesenteric congestion and blunting of the left costophrenic angle with mild left basilar atelectasis. Electronically Signed: Jesse Stewart MD at 9:31 EDT Reading Location ID and State: [address] [place] [address] , Service support , Physical Exam Const alert, oriented x3, no apparent distress and well nourished; Negative for average body habitus or healthy appearing Constitutional Narrative: Morbid obese, upper middle-aged, white male who appears older than stated age, sitting up on the edge of the bed, just finished eating lunch, appears comfortable, nontoxic General Appearance: cooperative HEENT normocephalic, head/scalp atraumatic and moist oral mucous membranes HEENT Narrative: Mallampati 3, no thrush Resp normal respiratory effort, no retractions, no use of accessory muscles and clear to auscultation bilaterally Auscultation: Negative for rales, rhonchi or wheezes Cardio regular rate, regular rhythm, S1 normal heart sound, S2 normal heart sound, no rub, no gallops and no clicks; Negative for no murmurs Cardio Narrative: 3 out of 6 systolic murmur loudest at right upper sternal border GI normal to inspection, nondistended, normoactive bowel sounds, soft to palpation and non-tender GI Narrative: Large protuberant abdomen Extremity Extremity Narrative: Bilateral lower extremity venous stasis noted, 3 significant wounds on the right lateral leg, no cyanosis or clubbing Neuro oriented x3, moves all extremities and no focal motor deficits Neuro Narrative: Generalized weakness noted Speech: speech normal Psych Psych Narrative: Affect is flat in response signs are deliberate and slow, mood seems somewhat distant depressed, tangential thought process at times Assessment & Plan Assessment/Plan (1) Wound of right leg: (2) Infected wound: (3) Chronic venous insufficiency: (4) Elevated serum creatinine: PLAN: Plan Infected right leg wounds -Sent in for debridement by podiatry -ID following and patient on vancomycin and Zosyn -Wound cultures thus far are showing gram-negative rods -Polymicrobial last cultures -ESR and CRP are elevated -Plan is for OR on -Chest x-ray and EKG are unremarkable and patient appears to be medically optimized for intervention at this time Bradycardia -Patient with asymptomatic bradycardia -is on a high dose of beta-maren 25 mg p.o. twice daily -Patient is asymptomatic and will continue current dose as this is not a new phenomenon for him with previous admissions -We will monitor clinically may need to cut back on his dosing depending on heart rates during his hospitalization Chronic anemia -Hemoglobin at the end of October was 9.3 -Stable at 9.8 today -Had EGD and colonoscopy in October 2023 -EGD showed normal esophagus, hiatal hernia, duodenal ulcer that was treated with heater probe and nonbleeding duodenal ulcers -Colonoscopy showed fair prep, anal fissure, nonbleeding internal hemorrhoids, anal figure was treated with argon plasma coagulation and three 1 to 2 mm polyps were found in the sigmoid colon, and ascending colon with removal via hot snare with clip placement and a single ulcer was found at the hepatic flexure that was treated with heater probe -Continue Protonix 40 mg daily -Continue home iron Gastric ulcers -Continue Protonix 40 mg daily Elevated serum creatinine on CKD stage II-IIIa -Elevation has resolved and patient is back to baseline creatinine of 1.19 today -Baseline serum creatinine appears to run between 1.1-1.3 -1.46 on admission -Avoid nephrotoxins with CKD -Will trend Generalized weakness/debility due to advancing age and chronic comorbidities/deconditioning -Patient currently living at [facility] -Plan is to return there at discharge -PT/OT following -Case management/social work consulted to assist with discharge planning DM-2 -Hemoglobin A1c from October was 5.2 -Hold Mounjaro -continue subcu insulin- basal -Cardiac/carb controlled diet -SSI -Accu-Cheks as ordered Paroxysmal atrial fibrillation/flutter -Hold Eliquis until okay to restart per surgery -Continue home Coreg Valvular heart disease -Status post aortic valve replacement-bioprosthetic -No current issues -Last echocardiogram was 2021 and there were no stenotic changes within the bioprosthetic valve at that time -EF 55% Hypertension -Continue amlodipine -Continue home carvedilol BPH with obstruction -Continue home Flomax -Will refer to urology at discharge as patient has multiple complaints with regards to this History of DVT -Chronic right lower extremity DVT noted on imaging at [facility] on 10/22/2023 -Will need to hold Eliquis for surgery and restart as soon as possible following -If not able to start immediately after surgery will need heparin drip versus Lovenox subcu PAWEL -CPAP ordered nocturnally and with naps -Would recommend if patient receives anesthesia to utilize CPAP and if requires intubation extubate to CPAP Bilateral lower extremity lymphedema -Chronic and stable -Continue home Bumex COPD -Continue home inhalers/as needed aerosols -No acute issues Chronic constipation -Continue home bowel regimen -as needed senna ordered Diabetic neuropathy -Continue home gabapentin Insomnia -Continue home trazodone -Continue home melatonin Morbid obesity -BMI is 41.7 -Complicates treatment, prognosis, outcomes -Recommend weight loss -patient is on Mounjaro DVT prophylaxis -Subcu Lovenox 40 twice daily until can restart Eliquis CODE STATUS -DNR CCA with no intubation per paperwork from nursing facility Charges/Coding Visit Charges Inpatient E&M: 50572 Subs Hosp L2
[2024-01-04] MEDS: Polyethylene Glycol 3350 17 GM PACKET PO (16:53)
[2024-01-04 17:11] LABS: Bedside Glucose 102 mg/dL (74-106)
[2024-01-04] MEDS: MELATONIN 3 MG TABLET PO (22:09)
[2024-01-04] MEDS: traZODone 50 MG Tablet PO (22:09)
[2024-01-04] MEDS: Atorvastatin Calcium 20 MG Tablet PO (22:09)
[2024-01-04] MEDS: Piperacil/Tazobactam 3.375 GM in 0.9% Normal Saline (50mL MB+) 50 ML IV (22:11)
[2024-01-04 22:57] LABS: Bedside Glucose 115 mg/dL (74-106)
[2024-01-05] VITALS (10 sets, daily range): BP systolic 136–143; BP diastolic 63–69; PULSE 43–79; RESP 12–18; TEMP 36.3–37.1; O2SAT 93–98; BMI 41.3
[2024-01-05 04:52] LABS: Absolute Lymphocyte Count 1.04 X10^3/uL (0.83-4.51); Absolute Neutrophil Count 3.3 X10^3/uL (2.0-7.7); Basophil# 0.03 X10^3/uL; Basophil% 0.6 % (0-1); Eosinophil# 0.29 X10^3/uL; Eosinophils% 5.4 % (0-5); Hematocrit 33.8 % (40-54); Hemoglobin 10.2 g/dL (13.0-16.5); Lymphocyte # 1.04 X10^3/ul (0.83-4.51); Lymphocyte % 19.4 % (19-41); Mean Corp Hgb Conc 30.2 g/dL (32-36); Mean Corpuscular Hgb 26.9 pg (27.0-32.0); Mean Corpuscular Volume 89.2 fL (80-94); Mean Platelet Vol. 12.5 fl (6.2-12.0); Monocyte% 13.1 % (0-10); NRBC Flagged by Analyzer 0 % (0-5); Neutrophil # 3.28 X10^3/uL (2.7-7.7); Neutrophil % 61.3 % (47-70); Platelet Count 157 K/mm3 (150-450); RBC Distribution Width CV 16.1 % (11.6-14.6); RBC Distribution Width SD 52.9 fl (35.1-43.9); Red Blood Count 3.79 M/mm3 (4.6-6.2); White Blood Count 5.4 K/mm3 (4.4-11.0)
[2024-01-05 05:08] LABS: Anion Gap 4 (5-15); BUN 30 mg/dL (7-18); BUN/Creat Ratio 23.1 RATIO (10-20); Chloride 106 mmol/L (98-107); EST Glomerular Filtration Rate 58 mL/min (>60); Est Glom Filt Rate - Afr Amer 71 mL/min (>60); Estimated Creatinine Clearance 83.32 ml/min; Glucose 111 mg/dL (74-106); Potassium 4.2 mmol/L (3.5-5.1); Sodium Level 138 mmol/L (136-145)
[2024-01-05 05:09] LABS: Vancomycin, Trough Level 26.2 ug/mL (5.0-15.0)
--- NOTE | 2024-01-05 05:21 | PCM.RX.CS ---
Consult Antibiotic Management Pharmacy has been consulted to manage selected antibiotic: Vancomycin Type of Intervention Type of Consult: Follow-up Suspected Infection Suspected Infection: Skin/Soft tissue Labs Labs: Sodium 138 mmol/L (136-145) 01/05/24 04:30 Potassium 4.2 mmol/L (3.5-5.1) 01/05/24 04:30 Chloride 106 mmol/L (98-107) 01/05/24 04:30 Carbon Dioxide 28.0 mmol/L (21.0-32.0) 01/05/24 04:30 Anion Gap 4 (5-15) L 01/05/24 04:30 BUN 30 mg/dL (7-18) H 01/05/24 04:30 Creatinine 1.30 mg/dL (0.70-1.30) 01/05/24 04:30 Est GFR (MDRD) Af Amer 71 mL/min (>60) 01/05/24 04:30 Est GFR (MDRD) Non-Af 58 mL/min (>60) L 01/05/24 04:30 BUN/Creatinine Ratio 23.1 RATIO (10-20) H 01/05/24 04:30 Glucose 111 mg/dL (74-106) H 01/05/24 04:30 Vancomycin Trough 26.2 ug/mL (5.0-15.0) H 01/05/24 04:30 Microbiology Microbiology: Microbiology 01/03/24 13:05 Wound - Leg, Right Gram Stain - Final 01/03/24 13:05 Wound - Leg, Right Wound Culture - Preliminary Gram negative cleo Dosing Weight Weight used for dosin kg Estimated Creatinine Clearance Estimated Creatinine Clearance: 83 Goal Trough Goal Trough: 15-20 mcg/mL Pharmacy Plan for Drug Dosing Pharmacy Plan for Drug Dosing: Vancomycin trough level of 26.2, drawn 11.5hrs post-dose, was high. Current dosing will be held pending a random vanco level to be drawn in twelve hours. Pharmacy Service will continue to monitor and adjust dosing as required. Follow-Up Labs Follow-Up Labs: Trough: Vancomycin (random) Date/Time Labs Ordered Labs to be done on [date and time ordered]: 01/05/24 @1630 random
[2024-01-05] MEDS: Gabapentin 300 MG Capsule PO ×3 (06:25→21:12)
[2024-01-05] MEDS: Nystatin Powder 15gm Bottle 1 APPLIC TOPICAL ×3 (06:25→21:12)
[2024-01-05] MEDS: Acetaminophen 500 MG Tablet 1000 MG PO ×3 (06:26→21:12)
[2024-01-05] MEDS: Piperacil/Tazobactam 3.375 GM in 0.9% Normal Saline (50mL MB+) 50 ML IV (06:26)
[2024-01-05 07:13] LABS: Bedside Glucose 114 mg/dL (74-106)
--- NOTE | 2024-01-05 07:58 | PCM.PN.HOSP ---
Reason for Visit Reason for Visit: Diagnoses Venous insufficiency (chronic) (peripheral) (01/03/24) Lymphedema, not elsewhere classified (01/03/24) Local infection of the skin and subcutaneous tissue, unspecified (01/03/24) Non-pressure chronic ulcer of unspecified part of right lower leg with necrosis of muscle (01/03/24) Other specified abnormal findings of blood chemistry (01/03/24) Unspecified open wound, right lower leg, initial encounter (01/03/24) Other injury of unspecified body region, initial encounter (01/03/24) Subjective Subjective No new events. Objective Data Objective Data Vital Signs: Vital Signs Temp Pulse Resp BP Pulse Ox O2 Del Method FiO2 36.3 C L 44 L 18 137/69 H 98 Room Air 30 01/05/24 06:20 01/05/24 06:20 01/05/24 06:20 01/05/24 06:20 01/05/24 06:20 01/05/24 06:20 01/05/24 04:38 Oxygen Delivery Method Room Air Weight: 146 kg Body Mass Index (BMI) 41.3 Intake & Output: Intake and Output for Last 24 Hours 01/03/24 01/04/24 01/05/24 23:59 23:59 23:59 Intake Total 690.00 / 690.00 1620 / 1620 170 / 170 Balance 690.00 / 690.00 1620 / 1620 170 / 170 Lab / Micro Data 01/05/24 04:30 01/05/24 04:30 Labs: Laboratory Results - last 24 hr 01/04/24 05:21: WBC 5.3, RBC 3.72 L, Hgb 9.8 L, Hct 33.4 L, MCV 89.8, MCH 26.3 L, MCHC 29.3 L, RDW Std Deviation 53.7 H, RDW Coeff of Carlito 16.5 H, Plt Count 158, MPV 13.3 H, Immature Gran % (Auto) 0.200, Neut % (Auto) 63.4, Lymph % (Auto) 17.3 L, [place] % (Auto) 13.9 H, Eos % (Auto) 4.4, Baso % (Auto) 0.8, Absolute Neuts (auto) 3.3, Absolute Lymphs (auto) 0.91, Nucleated RBC % 0 01/04/24 11:53: POC Glucose 152 H 01/04/24 16:52: POC Glucose 102 01/04/24 21:59: POC Glucose 115 H 01/05/24 04:30: WBC 5.4, RBC 3.79 L, Hgb 10.2 L, Hct 33.8 L, MCV 89.2, MCH 26.9 L, MCHC 30.2 L, RDW Std Deviation 52.9 H, RDW Coeff of Carlito 16.1 H, Plt Count 157, MPV 12.5 H, Immature Gran % (Auto) 0.200, Neut % (Auto) 61.3, Lymph % (Auto) 19.4, [place] % (Auto) 13.1 H, Eos % (Auto) 5.4 H, Baso % (Auto) 0.6, Absolute Neuts (auto) 3.3, Absolute Lymphs (auto) 1.04, Nucleated RBC % 0, Sodium 138, Potassium 4.2, Chloride 106, Carbon Dioxide 28.0, Anion Gap 4 L, BUN 30 H, Creatinine 1.30, Estim Creat Clear Calc 83.32, Est GFR (MDRD) Af Amer 71, Est GFR (MDRD) Non-Af 58 L, BUN/Creatinine Ratio 23.1 H, Glucose 111 H, Calcium 9.0, Vancomycin Trough 26.2 H 01/05/24 06:23: POC Glucose 114 H Micro: Microbiology 01/03/24 13:05 Wound - Leg, Right Gram Stain - Final 01/03/24 13:05 Wound - Leg, Right Wound Culture - Final Pseudomonas aeruginosa Radiography Diagnostic Testing: Radiology Impression Chest X-Ray 01/04/24 08:21 IMPRESSION: Mild degree of volar mesenteric congestion and blunting of the left costophrenic angle with mild left basilar atelectasis. Electronically Signed: Jesse Stewart MD at 9:31 EDT , Physical Exam Const alert and no apparent distress HEENT head/scalp atraumatic and moist oral mucous membranes Resp normal respiratory effort, no retractions, no use of accessory muscles and clear to auscultation bilaterally Cardio regular rate, regular rhythm, S1 normal heart sound and S2 normal heart sound GI normal to inspection, nondistended, normoactive bowel sounds, soft to palpation, non-tender and non-distended Neuro Sensorium / Orientation: awake and alert Assessment & Plan Assessment/Plan (1) Wound of right leg: (2) Infected wound: (3) Chronic venous insufficiency: (4) Elevated serum creatinine: PLAN: Plan Infected right leg wounds Wound culture positive for Pseudomonas aeroginosa Plan is for OR on 01/[address] Shannon. NQSIP performed and patient is above average risk for serious complications, any complications, pneumonia, cardiac complications, surgical site infections, urinary tract infections, VTE, renal failure, readmission, return to the OR, , discharged to nursing or rehab facility and sepsis. However, patient is otherwise medically optimized to proceed with surgery with no further modification in regards to his other medical conditions is necessary at this time. Bradycardia Patient with asymptomatic bradycardia however heart rate is in the 40s. Patient takes carvedilol 25 mg twice daily which she has been receiving. Will cut the dose down to and observe with hold parameters. Generalized weakness/debility due to advancing age and chronic comorbidities/deconditioning Patient currently living at [facility] Plan is to return there at discharge PT/OT following Case management/social work consulted to assist with discharge planning DM-2 Hemoglobin A1c from October was 5.2. Hold Mounjaro -continue subcu insulin- basal-Cardiac/carb controlled diet SSI Accu-Cheks as ordered Chronic conditions: Chronic anemia: stable Gastric ulcers-Continue Protonix 40 mg daily Elevated serum creatinine on CKD stage [id number] has resolved and patient is back to baseline creatinine of 1.19 today-Baseline serum creatinine appears to run between 1.1-1.3-1.46 on admission-Avoid nephrotoxins with CKD Paroxysmal atrial fibrillation/flutter-Hold Eliquis until okay to restart per surgery- valvular heart disease-Status post aortic valve [id number] current issues-Last echocardiogram was 2021 and there were no stenotic changes within the bioprosthetic valve at that time -EF 55% Hypertension-Continue amlodipine-Continue home carvedilol BPH with obstruction-Continue home Flomax-Will refer to urology at discharge as patient has multiple complaints with regards to this History of DVT-Chronic right lower extremity DVT noted on imaging at [facility] on 10/22/2023-Will need to hold Eliquis for surgery and restart as soon as possible following -If not able to start immediately after surgery will need heparin drip versus Lovenox subcu PAWEL-CPAP ordered nocturnally and with naps-Would recommend if patient receives anesthesia to utilize CPAP and if requires intubation extubate to CPAP Obesity class III: complicates care and recovery. DVT prophylaxis-Subcu Lovenox 40 twice daily until can restart Eliquis CODE STATUS -DNR CCA with no intubation per paperwork from nursing facility Charges/Coding Visit Charges Inpatient E&M: 11149 Subs Hosp L2
[2024-01-05] MEDS: Aspirin E.C. 81 MG Tablet PO (08:10)
[2024-01-05] MEDS: Ferrous Sulfate 325 MG Tablet PO (08:10)
[2024-01-05] MEDS: Juven (unflavored) Packet 1 PACKET PO ×2 (08:10→15:54)
[2024-01-05] MEDS: Tamsulosin HCl 0.4 MG Capsule 0.8 MG PO (08:11)
[2024-01-05] MEDS: Bumetanide 2 MG Tablet 1 MG PO (08:11)
[2024-01-05] MEDS: Menthol/Lanolin/Calamine/Znox 113 GM Tube 1 APPLIC TOPICAL ×2 (08:12→21:12)
[2024-01-05] MEDS: Docusate Sodium 100 MG Capsule PO ×2 (08:12→21:12)
[2024-01-05] MEDS: Carvedilol 25 MG Tablet PO (08:13)
[2024-01-05] MEDS: amLODIPine 5 MG Tablet PO (08:14)
[2024-01-05] MEDS: Ascorbic Acid 500 MG Tablet 250 MG PO (08:15)
[2024-01-05] MEDS: DAKIN'S SOL HALF STRENGTH (=0.25%) 1 APPLIC TOPICAL ×2 (08:16→21:12)
[2024-01-05] MEDS: Budesonide Respules 0.5 MG/2 ML AMPUL.NEB. INHALATION ×2 (08:24→19:18)
[2024-01-05] MEDS: Albuterol 2.5 MG/3 ML VIAL.NEB. INHALATION ×3 (08:26→19:18)
--- NOTE | 2024-01-05 09:28 | PN.SURG_ITS ---
Subjective Subjective Mr. Gutierrez is a 68-year-old diabetic male seen at bedside today for continued evaluation of the right lower extremity full-thickness ulceration down to muscle. Patient has been getting dressing changes by wound care. He denies any pain to the right lower extremity. He is ready move forward with surgical intervention. Denies trauma. Denies constitutional symptoms. No other pedal complaints at this time. Objective Data Objective Data Vital Signs: Vital Signs Temp Pulse Resp BP Pulse Ox O2 Del Method FiO2 97.4 F L 79 18 137/69 H 93 Room Air 30 01/05/24 06:20 01/05/24 07:45 01/05/24 07:45 01/05/24 06:20 01/05/24 07:45 01/05/24 07:45 01/05/24 04:38 Oxygen Delivery Method Room Air Weight: 146 kg Body Mass Index (BMI) 41.3 Intake & Output: Intake and Output for Last 24 Hours 01/03/24 01/04/24 01/05/24 23:59 23:59 23:59 Intake Total 690.00 / 690.00 1620 / 1620 170 / 170 Balance 690.00 / 690.00 1620 / 1620 170 / 170 Lab / Micro Data 01/05/24 04:30 01/05/24 04:30 Labs: Laboratory Results - last 24 hr 01/04/24 05:21: WBC 5.3, RBC 3.72 L, Hgb 9.8 L, Hct 33.4 L, MCV 89.8, MCH 26.3 L , MCHC 29.3 L, RDW Std Deviation 53.7 H, RDW Coeff of Carlito 16.5 H, Plt Count 158, MPV 13.3 H, Immature Gran % (Auto) 0.200, Neut % (Auto) 63.4, Lymph % (Auto) 17.3 L, [place] % (Auto) 13.9 H, Eos % (Auto) 4.4, Baso % (Auto) 0.8, Absolute Neuts (auto) 3.3, Absolute Lymphs (auto) 0.91, Nucleated RBC % 0 01/04/24 11:53: POC Glucose 152 H 01/04/24 16:52: POC Glucose 102 01/04/24 21:59: POC Glucose 115 H 01/05/24 04:30: WBC 5.4, RBC 3.79 L, Hgb 10.2 L, Hct 33.8 L, MCV 89.2, MCH 26.9 L, MCHC 30.2 L, RDW Std Deviation 52.9 H, RDW Coeff of Carlito 16.1 H, Plt Count 157, MPV 12.5 H, Immature Gran % (Auto) 0.200, Neut % (Auto) 61.3, Lymph % (Auto) 19.4, [place] % (Auto) 13.1 H, Eos % (Auto) 5.4 H, Baso % (Auto) 0.6, Absolute Neuts (auto) 3.3, Absolute Lymphs (auto) 1.04, Nucleated RBC % 0, Sodium 138, Potassium 4.2, Chloride 106, Carbon Dioxide 28.0, Anion Gap 4 L, BUN 30 H, Creatinine 1.30, Estim Creat Clear Calc 83.32, Est GFR (MDRD) Af Amer 71, Est GFR (MDRD) Non-Af 58 L, BUN/Creatinine Ratio 23.1 H, Glucose 111 H, Calcium 9.0, Vancomycin Trough 26.2 H 01/05/24 06:23: POC Glucose 114 H Micro: Microbiology 01/03/24 13:05 Wound - Leg, Right Gram Stain - Final 01/03/24 13:05 Wound - Leg, Right Wound Culture - Final Pseudomonas aeruginosa Radiography Diagnostic Testing: Radiology Impression Chest X-Ray 01/04/24 08:21 IMPRESSION: Mild degree of volar mesenteric congestion and blunting of the left costophrenic angle with mild left basilar atelectasis. Electronically Signed: Jesse Stewart MD at 9:31 EDT , Physical Exam Narrative Neurovascular status is unchanged. Nonpitting edema appreciated to the proximal distal aspect of the left right lower extremity dressing. CFT is brisk. No pain on palpation to the lateral aspect of the right lower extremity. No pain with calf pressure. Assessment & Plan Assessment/Plan (1) Non-pressure ulcer of right lower extremity with necrosis of muscle: PLAN: Patient was examined evaluated. All findings were discussed with the patient. All questions were answered to the patient satisfaction. Long discussion with patient with wound care nurse at bedside regarding surgery tomorrow. Risk and benefits discussed with patient great detail. He is ready to move forward with surgical intervention. Patient is understanding that he will return to his SNF with a wound VAC once the surgery is completed. Surgical plan: Incision of bone cortex, surgical skin graft site prep with application agreement skin graft substitute with application of negative pressure wound VAC. , 01/06/2024. Patient be n.p.o. at midnight tonight. Wound care orders given for wound care nurse, Dakin solution, dry sterile dressing single-layer Garcias compression bandage to right lower extremity. Recent wound cx with ecoli, proteus, PsA, enterococcus, anaerobes. Wound cx with GNR here. WBC: 6.7 -> 5.4 Glucose: 158 HbA1c (11/02/2023): 5.2 Medicine: On board, medical management, Patient medically optimized for surgical intervention. Infectious disease: On board, IV antibiotics vancomycin and Zosyn Please reach out to Dr. Shannon with any questions or concerns. Thank you for letting me involved in the patient care! (2) Lymphedema of right lower extremity: (3) Acute painful diabetic polyneuropathy:
--- NOTE | 2024-01-05 09:54 | WOUNDNOTE ---
wound photo: right lower leg
[2024-01-05] MEDS: Enoxaparin 40 MG/0.4 ML Syringe SC ×2 (10:00→21:12)
[2024-01-05] MEDS: Carvedilol 12.5 MG Tablet PO (10:00)
[2024-01-05] MEDS: Insulin Glargine-YFGN 100 UNIT/ML Pen 40 UNIT SC (10:01)
[2024-01-05 10:32] LABS: Bedside Glucose 158 mg/dL (74-106)
--- NOTE | 2024-01-05 13:57 | PCM.PN.ID ---
Physical Exam Narrative Feeling ok, OR planned, no fever, no n/v/d Const alert and no apparent distress General Appearance: cooperative Resp normal air movement and clear to auscultation bilaterally Cardio regular rate and regular rhythm GI soft to palpation, non-tender and non-distended Skin Skin Narrative: leg wrapped ID ID: Route of nutrition/ use of supplements: [] Nutritional Intake: [] IV Site: [] Cohen Catheter: [] Assessment & Plan Assessment/Plan (1) Infected wound: PLAN: Recent wound cx with ecoli, proteus, PsA, enterococcus, anaerobes. Wound cx with PsA here, R to zosyn. Will change to vanc, levaquin, flagyl. OR planned with Dr. Shannon. Will follow
[2024-01-05] MEDS: levoFLOXacin 750 MG Tablet PO (14:01)
[2024-01-05] MEDS: metroNIDAZOLE 500 MG Tablet PO ×2 (14:01→21:12)
[2024-01-05 16:13] LABS: Bedside Glucose 131 mg/dL (74-106)
[2024-01-05 16:33] LABS: Bedside Glucose 125 mg/dL (74-106)
[2024-01-05 17:34] LABS: Vancomycin, Random Level 17.5 ug/mL (0.0-15.0)
--- NOTE | 2024-01-05 17:42 | PHA.PHARE_ITS ---
Consult Antibiotic Management Pharmacy has been consulted to manage selected antibiotic: Vancomycin Type of Intervention Type of Consult: Follow-up Labs Labs: Sodium 138 mmol/L (136-145) 01/05/24 04:30 Potassium 4.2 mmol/L (3.5-5.1) 01/05/24 04:30 Chloride 106 mmol/L (98-107) 01/05/24 04:30 Carbon Dioxide 28.0 mmol/L (21.0-32.0) 01/05/24 04:30 Anion Gap 4 (5-15) L 01/05/24 04:30 BUN 30 mg/dL (7-18) H 01/05/24 04:30 Creatinine 1.30 mg/dL (0.70-1.30) 01/05/24 04:30 Est GFR (MDRD) Af Amer 71 mL/min (>60) 01/05/24 04:30 Est GFR (MDRD) Non-Af 58 mL/min (>60) L 01/05/24 04:30 BUN/Creatinine Ratio 23.1 RATIO (10-20) H 01/05/24 04:30 Glucose 111 mg/dL (74-106) H 01/05/24 04:30 Vancomycin Trough 26.2 ug/mL (5.0-15.0) H 01/05/24 04:30 Random Vancomycin 17.5 ug/mL (0.0-15.0) H 01/05/24 16:20 Microbiology Microbiology: Microbiology 01/03/24 10:55 Blood Culture (Wb) - Anticubital Right Blood Culture - Preliminary No growth in 48 hours. 01/03/24 11:07 Blood Culture (Wb) - Anticubital Left Blood Culture - Preliminary No growth in 48 hours. 01/03/24 13:05 Wound - Leg, Right Gram Stain - Final 01/03/24 13:05 Wound - Leg, Right Wound Culture - Final Pseudomonas aeruginosa Goal Trough Goal Trough: 15-20 mcg/mL Pharmacy Plan for Drug Dosing Pharmacy Plan for Drug Dosing: VANCOMYCIN LEVEL RECEIVED Current Vancomycin Dose: ON HOLD- Last dose was 1750mg IV administered01/03 @1655 Number of Doses Received:3 (initial + 2 scheduled) Vancomycin Level: 17.5 Hours Since Last Dose: 23.5hr Renal Function:1.3 Renal Function Trend: slight increase in SCr from 01/03 Vancomycin Plan/Comments: Patient had a random vancomycin level drawn after scheduled dosing being held due to a high trough. Current level resulted in a value of 17.5 (goal 15-20). Patient is now within therapeutic goal. Will restart vancomycin at this time. Will start patient on vancomycin 1750mg IV Q24hr 01/04 @1800 Pending Level: 01/07/24 @1730, prior to 3rd total dose of new regimen per pr otocol Pharmacy Service will continue to monitor and adjust dosing as required.
[2024-01-05] MEDS: Vancomycin HCl 1,750 MG in 0.9% Normal Saline (500mL Bag) 500 ML 250 MG IV (18:46)
[2024-01-05] MEDS: traZODone 50 MG Tablet PO (21:11)
[2024-01-05] MEDS: MELATONIN 3 MG TABLET PO (21:11)
[2024-01-05] MEDS: Atorvastatin Calcium 20 MG Tablet PO (21:11)
[2024-01-06] VITALS (16 sets, daily range): BP systolic 133–166; BP diastolic 55–69; PULSE 45–60; RESP 12–22; TEMP 36.3–36.6; O2SAT 92–100; BMI 43.4
[2024-01-06 01:42] LABS: Bedside Glucose 113 mg/dL (74-106)
[2024-01-06 04:18] LABS: Absolute Neutrophil Count 3.8 X10^3/uL (2.0-7.7); Basophil# 0.03 X10^3/uL; Basophil% 0.5 % (0-1); Eosinophils% 3.5 % (0-5); Hematocrit 32.6 % (40-54); Hemoglobin 9.9 g/dL (13.0-16.5); Lymphocyte % 15.8 % (19-41); Mean Corp Hgb Conc 30.4 g/dL (32-36); Mean Corpuscular Volume 89.1 fL (80-94); Mean Platelet Vol. 12.8 fl (6.2-12.0); Monocyte# 0.76 X10^3/uL; Monocyte% 13.3 % (0-10); NRBC Flagged by Analyzer 0 % (0-5); Neutrophil % 66.5 % (47-70); Platelet Count 161 K/mm3 (150-450); RBC Distribution Width CV 16.3 % (11.6-14.6); RBC Distribution Width SD 53.1 fl (35.1-43.9); Red Blood Count 3.66 M/mm3 (4.6-6.2); White Blood Count 5.7 K/mm3 (4.4-11.0)
[2024-01-06 04:39] LABS: Anion Gap 4 (5-15); BUN 30 mg/dL (7-18); BUN/Creat Ratio 22.4 RATIO (10-20); Calcium,Total 8.8 mg/dL (8.5-10.1); Chloride 108 mmol/L (98-107); Creatinine, Serum 1.34 mg/dL (0.70-1.30); EST Glomerular Filtration Rate 56 mL/min (>60); Est Glom Filt Rate - Afr Amer 68 mL/min (>60); Estimated Creatinine Clearance 82.66 ml/min; Glucose 119 mg/dL (74-106); Potassium 4.2 mmol/L (3.5-5.1); Sodium Level 140 mmol/L (136-145)
[2024-01-06 04:43] LABS: International Normalized Ratio 1.3; Prothrombin Time (Protime)PT. 16.2 SECONDS (11.7-14.9)
[2024-01-06 04:44] LABS: Partial Thromboplast Time 41.8 Seconds (24.1-36.2)
[2024-01-06] MEDS: Nystatin Powder 15gm Bottle 1 APPLIC TOPICAL ×2 (06:36→22:00)
[2024-01-06] MEDS: 0.9% Normal Saline (250mL Bag) 250 ML 15 ML IV (06:36)
[2024-01-06 06:58] LABS: Bedside Glucose 113 mg/dL (74-106)
--- NOTE | 2024-01-06 07:16 | PN.HOSP_ITS ---
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 Patient would look but not engaging or following commands. Would not speak when spoken to. Eventually the patient states that he could not feel anything but then when doing a sternal rub, he withdrew to that pain was able to move his extremities. Objective Data Objective Data Vital Signs: Vital Signs Temp Pulse Resp BP Pulse Ox O2 Del Method FiO2 36.3 C L 53 L 15 139/69 H 100 Bi-pap 30 01/06/24 05:05 01/06/24 05:05 01/06/24 05:05 01/06/24 05:05 01/06/24 05:05 01/06/24 05:05 01/06/24 03:22 Oxygen Delivery Method Bi-pap Weight: 153.6 kg Body Mass Index (BMI) 43.4 Intake & Output: Intake and Output for Last 24 Hours 01/04/24 01/05/24 01/06/24 23:59 23:59 23:59 Intake Total 1620 / 1620 1055.00 / 1255.00 200 / 200 Output Total 250 / 250 Balance 1620 / 1620 805.00 / 1005.00 200 / 200 Lab / Micro Data 01/06/24 03:45 01/06/24 03:45 Labs: Laboratory Results - last 24 hr 01/05/24 10:05: POC Glucose 158 H 01/05/24 11:06: POC Glucose 125 H 01/05/24 15:51: POC Glucose 131 H 01/05/24 16:20: Random Vancomycin 17.5 H 01/05/24 21:08: POC Glucose 113 H 01/06/24 03:45: WBC 5.7, RBC 3.66 L, Hgb 9.9 L, Hct 32.6 L, MCV 89.1, MCH 27.0, MCHC 30.4 L, RDW Std Deviation 53.1 H, RDW Coeff of Carlito 16.3 H, Plt Count 161, M PV 12.8 H, Immature Gran % (Auto) 0.400, Neut % (Auto) 66.5, Lymph % (Auto) 15.8 L, Johnston % (Auto) 13.3 H, Eos % (Auto) 3.5, Baso % (Auto) 0.5, Absolute Neuts (auto) 3.8, Absolute Lymphs (auto) 0.90, Nucleated RBC % 0, PT 16.2 H, INR 1.3, APTT 41.8 H, Sodium 140, Potassium 4.2, Chloride 108 H, Carbon Dioxide 28.0, A nion Gap 4 L, BUN 30 H, Creatinine 1.34 H, Estim Creat Clear Calc 82.66, Est GFR (MDRD) Af Amer 68, Est GFR (MDRD) Non-Af 56 L, BUN/Creatinine Ratio 22.4 H, G lucose 119 H, Calcium 8.8 01/06/24 06:36: POC Glucose 113 H Micro: Microbiology 01/03/24 10:55 Blood Culture (Wb) - Anticubital Right Blood Culture - Preliminary 01/03/24 11:07 Blood Culture (Wb) - Anticubital Left Blood Culture - Preliminary No growth in 48 hours. 01/03/24 13:05 Wound - Leg, Right Gram Stain - Final 01/03/24 13:05 Wound - Leg, Right Wound Culture - Final Pseudomonas aeruginosa Physical Exam Const Constitutional Narrative: Awake. Minimally verbal though it seems intentional. HEENT head/scalp atraumatic and moist oral mucous membranes Eyes PERRL Resp normal respiratory effort and no retractions GI normal to inspection, nondistended, normoactive bowel sounds, soft to palpation, non-tender and non-distended Extremity Extremity Narrative: Bilateral lower extremities wrapped. Neuro Neuro Narrative: Initially nonverbal. Would not move any extremities and would have them drop to the ground. When raising his arms above his head he would avoid hitting himself in the head when they are dropped. Positive gag reflex. Did not withdrawal by moving his extremities with noxious stimuli, Including gag reflex and sternal rub. Sensorium / Orientation: awake Psych affect normal Assessment & Plan Assessment/Plan (1) Wound of right leg: (2) Infected wound: (3) Chronic venous insufficiency: (4) Elevated serum creatinine: PLAN: Plan Infected right leg wounds * Wound culture positive for Pseudomonas aeroginosa * Plan is for OR on 01/[address] Shannon. * NQSIP performed and patient is above average risk for serious complications, any complications, pneumonia, cardiac complications, surgical site infections, urinary tract infections, VTE, renal failure, readmission, return to the OR, , discharged to nursing or rehab facility and sepsis. However, patient is otherwise medically optimized to proceed with surgery with no further modification in regards to his other medical conditions is necessary at this time. Bradycardia * Patient with asymptomatic bradycardia however heart rate is in the 40s. Patient takes carvedilol 25 mg twice daily which she has been receiving. Will cut the dose down to 12-1/2 and observe with hold parameters. Generalized weakness/debility due to advancing age and chronic comorbidities/deconditioning * Patient currently living at [facility] * Plan is to return there at discharge * PT/OT following * Case management/social work consulted to assist with discharge planning DM-2 * Hemoglobin A1c from October was 5.2. * Hold Mounjaro -continue subcu insulin- basal-Cardiac/carb controlled diet * SSI * Accu-Cheks as ordered Aphasia * This seems intentional as patient was not speaking and then not moving anything eventually saying that could not feel anything when he clearly could. Staff said that he is similar events like this in the past with minimal. * Head CT here was negative * As it feel that this is intentional, is inconsistent exam is not in line with anything acutely neurologic, I do not feel any additional neurologic workup is necessary at this time. 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-RMKe-Mqgjwfjni has resolved and patient is back to baseline creatinine of 1.19 today-Baseline serum creatinine appears to run between 1.1-1.3-1.46 on admission-Avoid nephrotoxins with CKD * Paroxysmal atrial fibrillation/flutter-Hold Eliquis until okay to restart per surgery- * valvular heart disease-Status post aortic valve eexbyumavyh-[id number]-Xd current issues-Last echocardiogram was 2021 and there were no stenotic changes within the bioprosthetic valve at that time -EF 55% * Hypertension-Continue amlodipine-Continue home carvedilol * 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 DVT prophylaxis-Subcu Lovenox 40 twice daily until can restart Eliquis CODE STATUS -DNR CCA with no intubation per paperwork from nursing facility Charges/Coding Visit Charges Inpatient E&M: 65554 [facility] Hosp L3
--- NOTE | 2024-01-06 07:32 | WOUNDNOTE ---
Pt scheduled for surgery today. will leave dressing in place.
[2024-01-06] MEDS: Albuterol 2.5 MG/3 ML VIAL.NEB. INHALATION ×2 (07:40→20:16)
[2024-01-06] MEDS: Budesonide Respules 0.5 MG/2 ML AMPUL.NEB. INHALATION ×2 (07:40→20:16)
--- NOTE | 2024-01-06 09:22 | CT_ITS ---
STUDY: CT BRAIN WITHOUT CONTRAST REASON FOR EXAM: Male, 68 years old. Confusion RADIATION DOSAGE (If Supplied By Facility): CTDIvol = ( 44.99 ) mGy, DLP = ( 863.60 ) mGycm TECHNIQUE: Transaxial CT imaging of the brain was performed without administration of intravenous contrast material. Individualized dose optimization techniques were used for this CT. COMPARISON: No relevant priors. FINDINGS: Normal soft tissue structures. Normal calvarium. There is mild cerebral atrophy with widening of the extra-axial spaces and ventricular dilatation. There are areas of decreased attenuation within the white matter tracts of the supratentorial brain, consistent with microvascular disease changes. Normal basal ganglia and thalami. Normal brainstem. Normal cerebellum. There is no intracranial hemorrhage. There are no findings of an acute ischemic infarction. Atherosclerotic plaque formation of the vertebral arteries and cavernous portions of the internal carotid arteries bilaterally. Partial opacification of the left maxillary sinus. Partial opacification of the ethmoid sinuses more prominent on the left side. CT/Brain/Head without Contrast IMPRESSION: Chronic involutional changes of the brain. Electronically Signed: Jesse Stewart MD at 9:32 EDT ,
[2024-01-06 09:28] LABS: Bedside Glucose 125 mg/dL (74-106)
[2024-01-06] MEDS: Menthol/Lanolin/Calamine/Znox 113 GM Tube 1 APPLIC TOPICAL ×2 (10:44→21:38)
[2024-01-06] MEDS: 0.9% Saline Lock 10 ML Syringe IV (10:44)
[2024-01-06 11:06] LABS: Bedside Glucose 118 mg/dL (74-106)
--- NOTE | 2024-01-06 11:30 | PCM.PRE.AN2 ---
ASA Classification* ASA Classification ASA Classification: 3 Assessment & Plan Anesthesia* Anesthesia Assessment Anesthesia Assessment: Discussed sedation and/or anesthesia options, risks, benefits, and alternatives with patient/parents/legal guardian/POA. Questions invited. The patient/parents/legal guardian/POA seems to understand and agrees to proceed with anesthesia plan. Reviewed the physical assessment, medical history, allergy history and patient home medications list prior to surgery/procedure/anesthetic and documented any changes. Performed airway and anesthesia risk assessments. Procedural Plan Procedural Plan:: Proceed w/ Anesthesia plan Anesthesia Type Anesthesia Type: General (see written pre anesthesia record for full assessment) Anesthesia Focused Assessment* Temperature: 97.7 F Pulse Rate: 52 Blood Pressure: 147/55 Respiratory Rate: 16 Pulse Ox: 97 Fraction of Inspired Oxygen (FIO2): 30 Airway Assessment Mouth opens: >3 cm Mallampati Score: III Focused Labs Anesthesia Preop lab: CBC WBC 5.7 K/mm3 (4.4-11.0) 01/06/24 03:45 RBC 3.66 M/mm3 (4.6-6.2) L 01/06/24 03:45 Hgb 9.9 g/dL (13.0-16.5) L 01/06/24 03:45 Hct 32.6 % (40-54) L 01/06/24 03:45 Plt Count 161 K/mm3 (150-450) 01/06/24 03:45 CHEMISTRY Potassium 4.2 mmol/L (3.5-5.1) 01/06/24 03:45 Sodium 140 mmol/L (136-145) 01/06/24 03:45 Magnesium 2.2 mg/dL (1.6-2.6) 01/04/24 05:21 Phosphorus 3.5 mg/dL (2.5-4.9) 01/04/24 05:21 BUN 30 mg/dL (7-18) H 01/06/24 03:45 Creatinine 1.34 mg/dL (0.70-1.30) H 01/06/24 03:45 Glucose 119 mg/dL (74-106) H 01/06/24 03:45 POC Glucose 118 mg/dL (74-106) H 01/06/24 10:36 COAG PT 16.2 SECONDS (11.7-14.9) H 01/06/24 03:45 Pre-Assessment Diagnosis/Proposed Procedure Planned Operative Procedure(s): foot surgery Anesthesia History Anesthesia History - pigment presser: Anesthesia History - pigment presser Hx Hospitalization Any Problems With Anesthesia No 01/06/24 10:40 Cholinesterase deficiency No 01/06/24 10:40 You/Your Family Experience No 01/06/24 10:40 fever (hyperthermia) with Relationship Recent Exposure to Contagious No 01/06/24 10:40 Disease Does patient have nerve No 01/06/24 10:40 stimulator Patient instructed to have device shut off --Does patient have Pacemaker No 01/06/24 10:30 or ICD? When Was Last Pacemaker Check QUESTION #4 FULL TEXT: You/Your Family Experience fever (hyperthermia) with Anesthesia Last Oral Intake Last Oral intake: Last Oral Intake NPO since 00:00 01/06/24 10:30 Meds taken in AM with sips of water? Meds patient instructed to take am of surgery PONV PONV - pigment presser: PONV - pigment presser Female HX of Motion Sickness HX of N/V After Surgery Non-Smoker Duration of Surgery greater than 60 minutes Number of Risk Factors PONV Score Height & Weight Height & Weight: Anesthesia: Height & Weight Height 6 ft 2 in 01/06/24 10:30 Weight: 153.6 kg 01/06/24 10:30 Body Mass Index (BMI) 43.4 01/06/24 10:30 Respiratory Assessment Respiratory Assessment - pigment presser: Respiratory Tract Infection Hx - pigment presser Hx Respiratory Tract Infection No 01/06/24 10:40 STOP Sleep Apnea STOP Sleep Apnea - pigment presser: STOP Sleep Apnea - pigment presser Hx Hypertension Yes 01/04/24 13:30 Hx Sleep Apnea Yes 01/03/24 13:30 CPAP Yes: wears cpap at night 01/03/24 13:30 BIPAP No 01/03/24 13:30 Do you snore loudly (louder than talking or can be heard Do you often feel tired/ fatigued/ sleepy during daytime? Has anyone observed you stop breathing during sleep? STOP Results Positive 01/03/24 13:30 QUESTION #5 FULL TEXT : Do you snore loudly (louder than talking or can be heard through closed doors)? 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 Specify any problems Hx of Preganancy in last 3 N/A 01/03/24 13:30 Months Nurse Filling Out Transfusion [email or web address] 01/03/24 13:30 & Questions: Date: 01/03/24 01/03/24 13:30 Time: 13:33 01/03/24 13:30 Patient unable to answer at this time (ie. confused, unrespo /Reproduction History /Reproductive History - pigment presser: /Reproductive Hx- pigment presser Hx Now No 01/06/24 10:40 Gestational Age (in weeks): EDC: Hx Hx Para Hx Section SAB No 01/06/24 10:40 Active Medications Active Medications: Current Medications Generic Name Dose Route Start Last Admin Trade Name Freq PRN Reason Stop Dose Admin Acetaminophen 1,000 mg 01/03/24 15:38 01/06/24 05:35 Acetaminophen 500 Mg Tablet PO Not Given Q8 JOSHUA Albuterol Sulfate 2.5 mg 01/03/24 15:38 Albuterol 2.5 Mg/3 Ml Vial.Neb. INHALATION Q2H PRN PRN Dyspnea, wheezing Albuterol Sulfate 2.5 mg 01/03/24 16:10 01/06/24 07:40 Albuterol 2.5 Mg/3 Ml Vial.Neb. INHALATION 2.5 mg Q6HWA.RT JOSHUA Administration Amlodipine Besylate 5 mg 01/04/24 10:00 01/06/24 10:57 Amlodipine 5 Mg Tablet PO Not Given DAILY JOSHUA Protocol Ascorbic Acid 250 mg 01/04/24 10:00 01/06/24 10:57 Ascorbic Acid 500 Mg Tablet PO Not Given DAILY [facility] Aspirin 81 mg 01/04/24 08:00 01/06/24 08:24 Aspirin E.C. 81 Mg Tablet PO Not Given DAILYCM [facility] Atorvastatin Calcium 20 mg 01/03/24 22:00 01/05/24 21:11 Atorvastatin Calcium 20 Mg Tablet PO 20 mg QHS JOSHUA Administration Budesonide 0.5 mg 01/03/24 15:38 01/06/24 07:40 Budesonide Respules 0.5 Mg/2 Ml Ampul.Neb. INHALATION 0.5 mg BID.RT [facility] Administration Bumetanide 1 mg 01/04/24 10:00 01/06/24 10:27 Bumetanide 2 Mg Tablet PO Not Given DAILY [facility] Calamine/Phenol 1 applic 01/03/24 22:00 01/06/24 10:44 Menthol/Lanolin/Calamine/Znox 113 Gm Tube TOPICAL 1 applic BID [facility] Administration Protocol Carvedilol 12.5 mg 01/05/24 10:00 01/06/24 10:39 Carvedilol 12.5 Mg Tablet PO Not Given BID [facility] Protocol Docusate Sodium 100 mg 01/03/24 22:00 01/06/24 08:25 Docusate Sodium 100 Mg Capsule PO Not Given BID [facility] Enoxaparin Sodium 40 mg 01/03/24 22:00 01/06/24 10:42 Enoxaparin 40 Mg/0.4 Ml Syringe SC Not Given BID [facility] Ferrous Sulfate 325 mg 01/04/24 08:00 01/06/24 08:24 Ferrous Sulfate 325 Mg Tablet PO Not Given DAILYCM [facility] Gabapentin 300 mg 01/03/24 15:38 01/06/24 05:35 Gabapentin 300 Mg Capsule PO Not Given TID [facility] Glucagon 1 mg 01/03/24 15:38 Glucagon 1 Mg/Ml Syringe IM X1 PRN HYPOGLYCEMIA Protocol Sodium Chloride 250 mls @ 15 mls/hr 01/03/24 13:36 01/06/24 06:36 IV 15 mls/hr .[id number] PRN Administration Additional IVPB Infusion Sodium Chloride 250 mls @ 15 mls/hr 01/03/24 13:36 IV .[id number] PRN Saline Flush Vancomycin IV-PHARMACY TO DOSE 500 mls @ 250 mls/hr 01/03/24 15:38 1 each/ Sodium Chloride IV PRN PRN Rx to Dose Protocol Dextrose 250 mls @ 999 mls/hr 01/03/24 15:38 Dextrose 10%-Water IV .Q16M PRN HYPOGLYCEMIA Protocol Vancomycin HCl 1,750 mg/ 535 mls @ 250 mls/hr 01/05/24 18:00 01/05/24 21:23 Sodium Chloride IV Infused Q24H [facility] Infusion Insulin Glargine 40 unit 01/04/24 10:00 01/06/24 10:28 Insulin Glargine-Yfgn 100 Unit/Ml Pen SC Not Given DAILY [facility] Insulin Human Lispro 0 unit 01/03/24 16:00 01/06/24 10:58 Insulin Lispro 100 Unit/Ml Insuln.Pen SC Not Given ACHS [facility] Protocol L-Arginine/L-Glutamine/Calcium HMB 1 packet 01/03/24 17:00 01/06/24 08:25 Santhosh (Unflavored) [facility] Levofloxacin 750 mg 01/05/24 14:00 01/06/24 05:35 Levofloxacin 750 Mg Tablet PO Not Given DAILY@0600 [facility] Melatonin 3 mg 01/03/24 22:00 01/05/24 21:11 Melatonin 3 Mg Tablet PO 3 mg QHS [facility] Administration Metronidazole 500 mg 01/05/24 14:00 01/06/24 05:34 Metronidazole 500 Mg Tablet PO Not Given TID [facility] Nystatin 1 applic 01/03/24 15:38 01/06/24 06:36 Nystatin Powder 15gm Bottle TOPICAL 1 applic TID [facility] Administration Protocol Ondansetron HCl 4 mg 01/03/24 15:38 Ondansetron 4 Mg/2 Ml Vial IV Q8H PRN PRN NAUSEA/VOMITING Oxycodone HCl 5 mg 01/03/24 15:38 01/03/24 22:08 Oxycodone 5 Mg Tablet PO 5 mg Q4H PRN PRN Administration Pain Score 4-10 Polyethylene Glycol 17 gm 01/04/24 15:41 01/06/24 10:57 Polyethylene Glycol 3350 17 Gm Packet PO Not Given BID JOSHUA Senna/Docusate Sodium 2 tablet 01/03/24 15:38 Senna/Docusate Sodium 1 Tablet PO BID PRN PRN Constipation Sodium Chloride 10 - 40 ml 01/03/24 13:36 01/06/24 10:44 0.9% Saline Lock 10 Ml Syringe IV 10 ml UD PRN Administration SALINE FLUSH Sodium Hypochlorite 1 applic 01/03/24 22:00 01/06/24 08:25 Dakin's Karen Half Strength (=0.25%) TOPICAL Not Given BID [facility] Protocol Tamsulosin HCl 0.8 mg 01/04/24 08:30 01/06/24 08:25 Tamsulosin Hcl 0.4 Mg Capsule PO Not Given DAILY@0830 [facility] Trazodone HCl 50 mg 01/03/24 22:00 01/05/24 21:11 Trazodone 50 Mg Tablet PO 50 mg QHS [facility] Administration Vancomycin Protocol 1 lab 01/07/24 15:30 Vancomycin Trough/Random Due MC 01/07/24 19:30 DAILY [facility] Medical History Current use of insulin Chronic headaches Cancer Diabetes Kidney disease Former smoker CPAP (continuous positive airway pressure) dependence On home oxygen therapy Pulmonary embolism COPD (chronic obstructive pulmonary disease) Myocardial infarct DVT (deep venous thrombosis) Anemia Ulcer with necrosis of muscle Lymphedema of left lower extremity Lymphedema of right lower extremity Edema of left lower leg Edema of right lower leg Left leg swelling Right leg swelling Chronic venous insufficiency Non-pressure ulcer of right lower extremity with necrosis of muscle BPH (benign prostatic hyperplasia) Atrial fibrillation History of deep vein thrombosis (DVT) of lower extremity Blood loss anemia Hypertension Hiatal hernia Diverticulosis Debility Morbid obesity with BMI of 40.0-44.9, adult Obstructive sleep apnea on CPAP History of congestive heart failure Impaired mobility SOB (shortness of breath) Recurrent right inguinal hernia Heart murmur Heart failure 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 2 diabetes mellitus Aortic valve disease Renal mass, left History of DVT (deep vein thrombosis) Valvular heart disease Atrial fibrillation/flutter Chronic acquired lymphedema Chronic anemia Venous insufficiency (chronic) (peripheral) Ulcer of left lower extremity with fat layer exposed Superficial thrombosis of left lower extremity Peripheral vascular disease of lower extremity with ulceration Sleep apnea Morbid obesity DM2 (diabetes mellitus, type 2) Benign essential HTN Home Medications ?Medication ?Instructions ?Recorded ?Last Taken ?Type aspirin 81 mg tablet,delayed 81 mg PO DAILY 03/17/19 Unknown History release carvedilol 25 mg tablet 25 mg PO BID 03/17/19 Unknown History amlodipine 5 mg tablet 5 mg PO DAILY 04/18/24 Unknown History apixaban 5 mg tablet (Eliquis) 5 mg PO BID 10/28/23 Unknown History atorvastatin 20 mg tablet 20 mg PO QHS 10/28/23 Unknown History ferrous sulfate 325 mg (65 mg 325 mg PO DAILY 10/28/23 Unknown History iron) tablet (Feosol) gabapentin 300 mg capsule 300 mg PO TID 10/28/23 Unknown History melatonin 3 mg tablet 3 mg PO QHS 10/28/23 Unknown History acetaminophen 325 mg tablet 650 mg (2 x 325 mg) PO Q4H PRN PRN 11/03/23 Unknown Rx Fever, pain 1-04/20 #0 tabs albuterol sulfate 2.5 mg/3 mL 2.5 mg (3 mL) inhalation Q2H PRN 11/03/23 Unknown Rx (0.083 %) solution for nebulization PRN Dyspnea, wheezing #0 mL budesonide 0.5 mg/2 mL suspension 0.5 mg (2 mL) inhalation BID.RT #0 11/03/23 Unknown Rx for nebulization mL insulin glargine-yfgn 100 unit/mL 40 unit (0.4 mL) subcut DAILY #0 mL 11/03/23 Unknown Rx (3 mL) subcutaneous pen menthol 0.44 %-zinc oxide 20.6 % 1 applic topical BID #0 grams 11/03/23 Unknown Rx topical ointment (Calmoseptine) nystatin 100,000 unit/gram topical 1 applic topical TID #0 grams 11/03/23 Unknown Rx powder (Nyamy) potassium chloride 20 mEq 20 meq PO BIDCM #0 tabs 11/03/23 Unknown Rx tablet,extended release(part/cryst) ascorbic acid (vitamin C) 250 mg 250 mg PO DAILY 11/29/23 Unknown History tablet bumetanide 1 mg tablet 1 mg PO QDAY 12/22/23 Unknown History insulin lispro 100 unit/mL 1 sliding scale dose subcut 12/22/23 Unknown History subcutaneous solution USEASDIRECTD tamsulosin 0.4 mg capsule 0.8 mg PO DAILY 12/22/23 Unknown History tirzepatide 5 mg/0.5 mL 5 mg subcut SA 12/22/23 Unknown History subcutaneous pen injector (Mounjaro) budesonide-formoterol HFA 160 2 inh inhalation BID 01/03/24 Unknown History mcg-4.5 mcg/actuation aerosol inhaler (Symbicort) docusate sodium 100 mg capsule 100 mg PO BID 01/03/24 Unknown History (Col-Rite) hydrocodone-acetaminophen 5-325mg 1 tab PO Q8H PRN pain 01/03/24 Unknown History 5mg-325mg trazodone 50 mg tablet 50 mg PO QHS 01/03/24 Unknown History Allergy/AdvReac Type Severity Reaction Status Date / Time ibuprofen (From Nuprin) Allergy Unknown Verified 01/03/24 09:36 Family History Mother Diabetes Father Cirrhosis of liver Alcoholism Surgical History History of embolic filter insertion History of right inguinal hernia repair H/O colectomy History of repair of inguinal hernia History of bladder surgery History of tonsillectomy and adenoidectomy History of right inguinal hernia repair S/P AVR (aortic valve replacement) Social History housing: care home Smoking Status: Former smoker how long ago did patient quit smoking: Quit ~ 20 yrs prior, smoked age 15 until quit ~ 2 ppd. alcohol intake: never substance use type: does not use Review of Systems (Anesthesia) ROS Narrative System reviewed and no additional complaints, except as documented.
--- NOTE | 2024-01-06 12:58 | PCM.OPRPT ---
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 Full-thickness ulceration, right lower extremity 2. Venous insufficiency, right lower extremity 3. Diabetes mellitus type 2 peripheral neuropathy, right lower extremity Post-Operative Diagnosis: 1. Full-thickness ulceration, right lower extremity 2. Venous insufficiency, right lower extremity 3. Diabetes mellitus type 2 peripheral neuropathy, right lower extremity Surgery/Procedure Performed:: 1. Surgical skin graft site prep to the right lower extremity 2. Application of skin graft substitute, right lower extremity Description of Surgical Findings:: 1. 3 full-thickness ulceration to the right lateral lower extremity that showed evidence of tunneling and bridging between all 3 wounds with severe undermining. 2. Removal of all devitalized skin showed evidence of mild purulent drainage. Culture was taken to be sent for microbiology and culture and sensitivity 3. After aggressive surgical skin graft site prep, wound base showed 100% granular tissue. Surgeon: Aaron Shannon pre sales network engineer: None Type of Anesthesia: General and Local Anesthesiologist: Vivek Shepard Special Medications: Per anesthesia Specimen's removed: Microbiology culture Drains: None Estimated Blood Loss (mL): 500 mL Fluids Replaced: Per anesthesia Description of Procedure: Indications For Operation: Mr. Gutierrez is a 68-year-old diabetic male who was admitted to [facility] for progressively worsening 3 full-thickness ulceration to the lateral aspect of the right lower extremity. Patient was initially seen in the hospital and discharged to the wound care center where he was seen by Dr. Moshe Kitchen MD for wound care. Dr. Shannon was consulted for surgical evaluation and intervention. After my initial evaluation all risk and benefits were discussed with the patient in great detail regarding the patient's full-thickness ulceration. Surgical plan was discussed with the patient and patient agreed to be admitted to the hospital for surgical clearance to perform the above procedure to help heal his wound. Due to nature and chronicity of the patient's full-thickness ulceration it had deemed necessary at this time to take the patient to the operating room to perform the above procedure to help heal his wound and decrease his constant pain. The nature of the problem, anticipated procedures, postop recovery/convalences and risk/complications include but not limited to infection, wound healing complications, digital amputation, hypertrophic scarring, numbness, tingling, chronic pain, CRPS, over and under correction, recurrence of deformity, DVT and or PE and the need for further surgery have been discussed in great detail with the patient. All questions have been answered to the patient's satisfaction. There are no guarantees given as to the outcome of the procedure. Description of Procedure: Under mild sedation, the patient was brought into the operating room and placed on the operating table in supine position. Once the patient was under general anesthesia with endotracheal tube, the right lower extremity was blocked using approximately 10 cc 0.5% Marcaine plain. Next, a well-padded thigh tourniquet was applied to the right lower extremity. Next, the right lower extremity was prepped and draped in normal aseptic manner. Next, a timeout was then undertaken verifying the correct patient, extremity, visibility of preoperative markings, availability of the equipment. Next, attention was directed to the right lower extremity. Using a 6 inch Esmarch, right lower extremity was exsanguinated and elevated to 60 degrees for 1 minute. Procedure #1: Surgical skin graft site prep, right lower extremity Next, attention was directed to the level of the 3 full-thickness ulceration. There showed evidence of tunneling and on brining connecting all 3 ulcerations. The superior wound measures 1.5 x 2.5 x 3.2 cm, the right middle ulceration measures 4.5 x 6.0 x 4.0 cm, the inferior wound measures 7.7 x 7.5 x 2.5 cm. Using a sterile skin marker a large oblong incision was marked out connecting all 3 wounds to the level of undermining distally approximately superior and inferior connecting all the wounds. Using a #10 blade, a full-thickness incision down to subcutaneous tissue was carried through connecting all the wounds. Continued sharp dissection was carried down to subcutaneous tissue and all devitalized tissue was lifted and removed to be discarded. There showed evidence of purulent drainage to the proximal dorsal aspect of the right leg which was cultured and sent to microbiology culture and sensitivity. Next, using the [employer] ultrasonic debrider aggressive debridement of all devitalized tissue was done to the level of the full-thickness ulceration down to and including subcutaneous tissue fascia and muscle. Postdebridement measurement was 24.5 x 10.5 x 1.5 cm. After debridement wound base was 100% granular nature. At this time the tourniquet was deflated and reperfusion was noted to the right lower extremity instantly. All bleeders were cauterized as necessary. The full-thickness ulceration was flushed with copious jeoy of normal saline. The right lower extremity was cleaned and patted dry. Procedure #2: Application of skin graft substitute, right lower extremity Next, attention was directed to the skin graft substitute. Using aminofill 2000mg skin graft substitute the graft was made into a slurry and equally displaced across the full-thickness ulceration. The graft was secured with Adaptic and Steri-Strips. Procedure #3: Application of wound VAC on the right lower extremity Next, a negative pressure wound VAC was applied to the right lower extremity using the KCI recommendation. Wound VAC was set to 125 mmHg on continuous flow. There showed no leaks. The right lower extremity was dressed with 4 x 4's, dry sterile dressing and a single layer Garcias compression bandage was applied to the right lower extremity. The patient tolerated the procedure and anesthesia well and apparent satisfactory condition and was transported to the PACU for further monitoring prior to discharge back to the floor. Vital signs stable and vascular status intact to all digits bilateral. Post Operative Plan: Weightbearing: Patient can be weightbearing as tolerated to the right lower extremity. Full weightbearing to left lower extremity. Antibiotics: Patient getting scheduled antibiotics on the floor DVT Prophylaxis: Lovenox Cohen: None Dressing: Negative pressure wound VAC, dry sterile dressing single-layer Garcias compression bandage, right lower extremity X-Rays: Not needed for this case Pain Medication: Per medicine Follow-up: Patient is cleared from a podiatry perspective to discharge back to SNF once cleared by medicine team and infectious disease team. Patient may need further antibiotic treatment due to new cultures taken in the operating room. The patient will follow with Dr. Shannon at the wound care center next Wednesday. Please have SNF/patient call for appointment and time. Grafts/Implants Used: 2000 mg axiofill Complications None Admit VTE Documentation VTE Present on Admission: No VTE Mechan Device Prophylaxis: SCD's VTE Pharm Prophylaxis ordered?: Yes
[2024-01-06] MEDS: Bupivacaine Mpf 0.5% 30 ML VIAL (13:17)
--- NOTE | 2024-01-06 14:34 | PCM.POST.ANE ---
Anesthesia: Postop Eval I Current Vital Signs Temperature: 98 F Pulse Rate: 58 Blood Pressure: 133/63 Respiratory Rate: 22 Pulse Ox: 93 Oxygen Delivery Method: Room Air Assessment Airway patent: Yes Spontaneous unlabored respirations: Yes Mental status: Awake nausea: No Vomiting: No Anesthesia Complication: No Fluid Hydration Crystalloid volume administer (ml): 1,200 Total IV fluid infused: 1,200 Progress Note Anesthesia document: Postop Eval 1 completed: Yes
[2024-01-06 14:36] LABS: Hematocrit 31.4 % (40-54); Hemoglobin 9.6 g/dL (13.0-16.5)
--- NOTE | 2024-01-06 14:46 | POSTOPAN2_ITS ---
Anesthesia Postop Eval I Sum Postop Eval Completion status Anesthesia document: Postop Eval 1 completed: Yes Anesthesia Postop Eval I Summary Anesthesia Postop Eval I Summary: Anesthesia Postop Eval I: Assessment Summary Airway patent Yes 01/06/24 14:35 FITNESS MANAGEMENT DIRECTOR.CSIR Spontaneous unlabored Yes 01/06/24 14:35 FITNESS MANAGEMENT DIRECTOR.CSIR respirations Mental status Awake 01/06/24 14:35 FITNESS MANAGEMENT DIRECTOR.CSIR nausea No 01/06/24 14:35 FITNESS MANAGEMENT DIRECTOR.CSIR Vomiting No 01/06/24 14:35 FITNESS MANAGEMENT DIRECTOR.CSIR Anesthesia Postop Eval I: Fluid Summary Crystalloid volume administer 1,200 01/06/24 14:35 FITNESS MANAGEMENT DIRECTOR.CSIR (ml) Colloids volume administered ( ml) Blood Product volume administered (ml) Total IV fluid infused 1,200 01/06/24 14:35 FITNESS MANAGEMENT DIRECTOR.CSIR Anesthesia Postop Eval I: Summary Notes Anesthesia Complication No 01/06/24 14:35 FITNESS MANAGEMENT DIRECTOR.CSIR Anesthesia Complication Comment: Post-operative progress note Anesthesia: Postop Eval II Evaluation Mental status: Awake and Calm Pain Level: 1 nausea: No Vomiting: No Complications Anesthesia Complication: No
--- NOTE | 2024-01-06 14:46 | PCM.POSTANE2 ---
Anesthesia Postop Eval I Sum Postop Eval Completion status Anesthesia document: Postop Eval 1 completed: Yes Anesthesia Postop Eval I Summary Anesthesia Postop Eval I Summary: Anesthesia Postop Eval I: Assessment Summary Airway patent Yes 01/06/24 14:35 LITHOGRAPHIC ARTIST.CSIR Spontaneous unlabored Yes 01/06/24 14:35 LITHOGRAPHIC ARTIST.CSIR respirations Mental status Awake 01/06/24 14:35 LITHOGRAPHIC ARTIST.CSIR nausea No 01/06/24 14:35 LITHOGRAPHIC ARTIST.CSIR Vomiting No 01/06/24 14:35 LITHOGRAPHIC ARTIST.CSIR Anesthesia Postop Eval I: Fluid Summary Crystalloid volume administer 1,200 01/06/24 14:35 LITHOGRAPHIC ARTIST.CSIR (ml) Colloids volume administered ( ml) Blood Product volume administered (ml) Total IV fluid infused 1,200 01/06/24 14:35 LITHOGRAPHIC ARTIST.CSIR Anesthesia Postop Eval I: Summary Notes Anesthesia Complication No 01/06/24 14:35 LITHOGRAPHIC ARTIST.CSIR Anesthesia Complication Comment: Post-operative progress note Anesthesia: Postop Eval II Evaluation Mental status: Awake and Calm Pain Level: 1 nausea: No Vomiting: No Complications Anesthesia Complication: No
[2024-01-06 16:33] LABS: Bedside Glucose 128 mg/dL (74-106)
[2024-01-06] MEDS: oxyCODONE 5 MG Tablet PO (16:38)
[2024-01-06] MEDS: Vancomycin HCl 1,750 MG in 0.9% Normal Saline (500mL Bag) 500 ML 250 MG IV (17:52)
[2024-01-06] MEDS: Tamsulosin HCl 0.4 MG Capsule 0.8 MG PO (18:09)
--- NOTE | 2024-01-06 21:11 | NURSING ---
urojet used prior to f/c placement-#16 f/c placed without difficulty, 10 cc balloon
[2024-01-06] MEDS: traZODone 50 MG Tablet PO (21:35)
[2024-01-06] MEDS: Gabapentin 300 MG Capsule PO (21:36)
[2024-01-06] MEDS: MELATONIN 3 MG TABLET PO (21:36)
[2024-01-06] MEDS: Enoxaparin 40 MG/0.4 ML Syringe SC (21:36)
[2024-01-06] MEDS: Acetaminophen 500 MG Tablet 1000 MG PO (21:36)
[2024-01-06] MEDS: Docusate Sodium 100 MG Capsule PO (21:36)
[2024-01-06] MEDS: metroNIDAZOLE 500 MG Tablet PO (21:37)
[2024-01-06] MEDS: Atorvastatin Calcium 20 MG Tablet PO (21:37)
[2024-01-06] MEDS: Insulin Lispro 100 UNIT/ML INSULN.PEN SC (22:00)
[2024-01-06 23:41] LABS: Bedside Glucose 158 mg/dL (74-106)
[2024-01-06] MEDS: Lidocaine Jelly 2% 20 ML Syringe (URO-JET) 1 APPLIC TOPICAL (23:59)
[2024-01-07] VITALS (12 sets, daily range): BP systolic 111–134; BP diastolic 59–67; PULSE 41–59; RESP 12–20; TEMP 36.1–36.7; O2SAT 90–100; BMI 43.4
--- NOTE | 2024-01-07 06:05 | NURSING ---
PT HAD URINARY RETENTION YESTERDAY AND TONIGHT. PLACED #16 FR REYNOSO CATHETER WITH UROJET. 1000 CC TEA COLORED URINE OUTPUT AT HS.
[2024-01-07] MEDS: Nystatin Powder 15gm Bottle 1 APPLIC TOPICAL ×3 (06:31→22:21)
[2024-01-07] MEDS: Acetaminophen 500 MG Tablet 1000 MG PO ×3 (06:35→21:40)
[2024-01-07] MEDS: levoFLOXacin 750 MG Tablet PO (06:35)
[2024-01-07] MEDS: metroNIDAZOLE 500 MG Tablet PO ×3 (06:35→21:40)
[2024-01-07] MEDS: Gabapentin 300 MG Capsule PO ×3 (06:35→21:40)
[2024-01-07 07:14] LABS: Bedside Glucose 107 mg/dL (74-106)
--- NOTE | 2024-01-07 07:24 | PCM.PN.HOSP ---
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 Wants to go home. Objective Data Objective Data Vital Signs: Vital Signs Temp Pulse Resp BP Pulse Ox O2 Del Method FiO2 36.6 C 45 L 18 111/59 L 100 Room Air 30 01/07/24 04:00 01/07/24 04:24 01/07/24 04:24 01/07/24 04:00 01/07/24 04:24 01/07/24 04:00 01/07/24 04:24 Oxygen Delivery Method Room Air Weight: 153.6 kg Body Mass Index (BMI) 43.4 Intake & Output: Intake and Output for Last 24 Hours 01/05/24 01/06/24 01/07/24 23:59 23:59 23:59 Intake Total 1055.00 / 1255.00 1735 / 1735 100 / 100 Output Total 250 / 250 1000 / 1000 150 / 150 Balance 805.00 / 1005.00 735 / 735 -50 / -50 Lab / Micro Data 01/06/24 14:27 01/06/24 03:45 Labs: Laboratory Results - last 24 hr 01/06/24 09:01: POC Glucose 125 H 01/06/24 10:36: POC Glucose 118 H 01/06/24 14:27: Hgb 9.6 L, Hct 31.4 L 01/06/24 16:11: POC Glucose 128 H 01/06/24 21:45: POC Glucose 158 H 01/07/24 06:25: POC Glucose 107 H Micro: Microbiology 01/03/24 10:55 Blood Culture (Wb) - Anticubital Right Blood Culture - Preliminary 01/03/24 11:07 Blood Culture (Wb) - Anticubital Left Blood Culture - Preliminary No growth in 48 hours. 01/03/24 13:05 Wound - Leg, Right Gram Stain - Final 01/03/24 13:05 Wound - Leg, Right Wound Culture - Final Pseudomonas aeruginosa Radiography Diagnostic Testing: Radiology Impression Brain CT 01/06/24 09:22 IMPRESSION: Chronic involutional changes of the brain. Electronically Signed: Jesse Stewart MD at 9:32 EDT , Physical Exam Const alert and no apparent distress Resp normal respiratory effort, no retractions, no use of accessory muscles and clear to auscultation bilaterally Cardio regular rate, regular rhythm, S1 normal heart sound and S2 normal heart sound GI normal to inspection, nondistended, normoactive bowel sounds, soft to palpation, non-tender and non-distended Extremity normal to inspection and full ROM Neuro Sensorium / Orientation: awake and alert Assessment & Plan Assessment/Plan (1) Wound of right leg: (2) Infected wound: (3) Chronic venous insufficiency: (4) Elevated serum creatinine: PLAN: Plan Infected right leg wounds Wound culture positive for Pseudomonas aeroginosa 01/05: 1. Surgical skin graft site prep to the right lower extremity 2. Application of skin graft substitute, right lower extremity Abx with vancomycin, levofloxacin and metronidazole. Bradycardia Patient with asymptomatic bradycardia however heart rate is in the 40s. Patient takes carvedilol 25 mg twice daily which she has been receiving. Will cut the dose down to 12-/ and observe with hold parameters. Still has not received carvedilol since the . Generalized weakness/debility due to advancing age and chronic comorbidities/deconditioning Patient currently living at [facility] Plan is to return there at discharge PT/OT following Case management/social work consulted to assist with discharge planning DM-2 Hemoglobin A1c from October was 5.2. Hold Mounjaro -continue subcu insulin- basal-Cardiac/carb controlled diet SSI Accu-Cheks as ordered Aphasia On 01/05 patient was non-verbal, did not move any extremities. This seems intentional as patient was not speaking and then not moving anything eventually saying that could not feel anything when he clearly could. Staff said that he is similar events like this in the past with minimal. Head CT here was negative As it feel that this is intentional, is inconsistent exam is not in line with anything acutely neurologic, I do not feel any additional neurologic workup is necessary at this time. Chronic conditions: Chronic anemia: stable Gastric ulcers-Continue Protonix 40 mg daily Elevated serum creatinine on CKD stage AO-EPBf-Nidgnevxy has resolved and patient is back to baseline creatinine of 1.19 today-Baseline serum creatinine appears to run between 1.1-1.3-1.46 on admission-Avoid nephrotoxins with CKD Paroxysmal atrial fibrillation/flutter-Hold Eliquis until okay to restart per surgery- valvular heart disease-Status post aortic valve [id number] current issues-Last echocardiogram was 2021 and there were no stenotic changes within the bioprosthetic valve at that time -EF 55% Hypertension-Continue amlodipine-Continue home carvedilol 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 DVT prophylaxis-Subcu Lovenox 40 twice daily until can restart Eliquis CODE STATUS -DNR CCA with no intubation per paperwork from nursing facility disposition: TBD. Pending culture. Charges/Coding Visit Charges Inpatient E&M: 70435 Subs Hosp L2
[2024-01-07] MEDS: Albuterol 2.5 MG/3 ML VIAL.NEB. INHALATION ×2 (07:39→19:20)
[2024-01-07] MEDS: Budesonide Respules 0.5 MG/2 ML AMPUL.NEB. INHALATION ×2 (07:39→19:20)
[2024-01-07] MEDS: Ferrous Sulfate 325 MG Tablet PO (08:18)
[2024-01-07] MEDS: Juven (unflavored) Packet 1 PACKET PO ×2 (08:18→16:56)
[2024-01-07] MEDS: Ascorbic Acid 500 MG Tablet 250 MG PO (08:18)
[2024-01-07] MEDS: Bumetanide 2 MG Tablet 1 MG PO (08:18)
[2024-01-07] MEDS: amLODIPine 5 MG Tablet PO (08:18)
[2024-01-07] MEDS: Tamsulosin HCl 0.4 MG Capsule 0.8 MG PO (08:18)
[2024-01-07] MEDS: Docusate Sodium 100 MG Capsule PO ×2 (08:18→21:40)
[2024-01-07] MEDS: Enoxaparin 40 MG/0.4 ML Syringe SC ×2 (08:19→22:20)
[2024-01-07] MEDS: Aspirin E.C. 81 MG Tablet PO (08:19)
[2024-01-07] MEDS: Menthol/Lanolin/Calamine/Znox 113 GM Tube 1 APPLIC TOPICAL ×2 (08:20→22:20)
[2024-01-07] MEDS: 0.9% Normal Saline (250mL Bag) 250 ML 15 ML IV (08:28)
[2024-01-07] MEDS: Insulin Glargine-YFGN 100 UNIT/ML Pen 40 UNIT SC (10:11)
[2024-01-07 11:56] LABS: Bedside Glucose 152 mg/dL (74-106)
[2024-01-07] MEDS: Insulin Lispro 100 UNIT/ML INSULN.PEN SC (12:30)
--- NOTE | 2024-01-07 14:58 | PCM.PN.ID ---
Physical Exam Narrative OR yesterday, feeling fine, no fever, no n/v/d. Const alert and no apparent distress General Appearance: cooperative Resp normal air movement and clear to auscultation bilaterally Cardio regular rate and regular rhythm GI soft to palpation, non-tender and non-distended Skin Skin Narrative: RLE wrapped, wound vac in place ID ID: Route of nutrition/ use of supplements: [] Nutritional Intake: [] IV Site: [] Cohen Catheter: [] Assessment & Plan Assessment/Plan (1) Infected wound: PLAN: Recent wound cx with ecoli, proteus, PsA, enterococcus, anaerobes. Wound cx with PsA here, R to zosyn. Cont vanc, levaquin, flagyl. OR 01/06/24 for I&D with Dr. Shannon. Will write for one week po levaquin and augmentin at discharge. Will follow
--- NOTE | 2024-01-07 16:47 | CASEMGMT ---
Social Work Pt may be ready for discharge over the weekend. Precert has been submitted to [facility] and auth has been approved with auth#[id number]. Auth good 01/06-01/08. If pt is still at [facility] on 01/09, new auth will be needed. [facility] updated and pt can admit with pt is medically ready. Phone call to pt's son and updated on discharge plan and he is agreeable. Green Sheet on chart to facilitate weekend discharge. Plan: Return to [facility], when medically ready LEATHA Mccann
[2024-01-07 17:17] LABS: Bedside Glucose 129 mg/dL (74-106)
[2024-01-07 18:08] LABS: Vancomycin, Trough Level 14.3 ug/mL (5.0-15.0)
--- NOTE | 2024-01-07 18:20 | PHA.PHARE_ITS ---
Consult Antibiotic Management Pharmacy has been consulted to manage selected antibiotic: Vancomycin Type of Intervention Type of Consult: Follow-up Labs Labs: Sodium 140 mmol/L (136-145) 01/06/24 03:45 Potassium 4.2 mmol/L (3.5-5.1) 01/06/24 03:45 Chloride 108 mmol/L (98-107) H 01/06/24 03:45 Carbon Dioxide 28.0 mmol/L (21.0-32.0) 01/06/24 03:45 Anion Gap 4 (5-15) L 01/06/24 03:45 BUN 30 mg/dL (7-18) H 01/06/24 03:45 Creatinine 1.34 mg/dL (0.70-1.30) H 01/06/24 03:45 Est GFR (MDRD) Af Amer 68 mL/min (>60) 01/06/24 03:45 Est GFR (MDRD) Non-Af 56 mL/min (>60) L 01/06/24 03:45 BUN/Creatinine Ratio 22.4 RATIO (10-20) H 01/06/24 03:45 Glucose 119 mg/dL (74-106) H 01/06/24 03:45 Vancomycin Trough 14.3 ug/mL (5.0-15.0) 01/07/24 17:18 Random Vancomycin 17.5 ug/mL (0.0-15.0) H 01/05/24 16:20 Microbiology Microbiology: Microbiology 01/06/24 Unknown Wound - Leg, Right Gram Stain - Final 01/06/24 Unknown Wound - Leg, Right Wound Culture - Preliminary No growth-Final to follow 01/03/24 10:55 Blood Culture (Wb) - Anticubital Right Blood Culture - Preliminary 01/03/24 11:07 Blood Culture (Wb) - Anticubital Left Blood Culture - Preliminary No growth in 48 hours. 01/03/24 13:05 Wound - Leg, Right Gram Stain - Final 01/03/24 13:05 Wound - Leg, Right Wound Culture - Final Pseudomonas aeruginosa Pharmacy Plan for Drug Dosing Pharmacy Plan for Drug Dosing: VANCOMYCIN LEVEL RECEIVED Current Vancomycin Dose: 1750MG Q24 Number of Doses Received: 5 Vancomycin Level: 14.3 MG/DL Hours Since Last Dose: 23.5 Renal Function: SCr 1.34 mg/dl from 01/05, CrCl 83 mL/min Renal Function Trend: stable Lab/Micro: wound cx preliminary Vancomycin Plan/Comments: 23.5 hour trough is slightly subtherapeutic (goal 15- 20mg/dL). Will increase dose to 2000mg Q24 and get a level prior to 3rd dose of new regimen per policy. Pending Level: 01/09/24 @ 1830 Pharmacy Service will continue to monitor and adjust dosing as required.
[2024-01-07] MEDS: Vancomycin HCl 2,000 MG in 0.9% Normal Saline (500mL Bag) 500 ML 250 MG IV (18:53)
[2024-01-07] MEDS: MELATONIN 3 MG TABLET PO (21:40)
[2024-01-07] MEDS: Atorvastatin Calcium 20 MG Tablet PO (21:40)
[2024-01-07] MEDS: traZODone 50 MG Tablet PO (21:40)
[2024-01-07 22:44] LABS: Bedside Glucose 121 mg/dL (74-106)
[2024-01-08] VITALS (8 sets, daily range): BP systolic 122–141; BP diastolic 60–66; PULSE 45–60; RESP 12–21; TEMP 36.6–36.7; O2SAT 94–99; BMI 43.6
[2024-01-08] MEDS: Gabapentin 300 MG Capsule PO ×2 (06:18→13:59)
[2024-01-08] MEDS: Acetaminophen 500 MG Tablet 1000 MG PO ×2 (06:18→13:59)
[2024-01-08] MEDS: metroNIDAZOLE 500 MG Tablet PO ×2 (06:18→14:02)
[2024-01-08] MEDS: levoFLOXacin 750 MG Tablet PO (06:18)
[2024-01-08] MEDS: Nystatin Powder 15gm Bottle 1 APPLIC TOPICAL ×2 (06:19→14:00)
--- NOTE | 2024-01-08 07:07 | PN.HOSP_ITS ---
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 Complains of swelling in left hand. Objective Data Objective Data Vital Signs: Vital Signs Temp Pulse Resp BP Pulse Ox O2 Del Method FiO2 36.6 C 47 L 16 122/61 H 97 Bi-pap 30 01/08/24 04:00 01/08/24 04:36 01/08/24 04:36 01/08/24 04:00 01/08/24 04:36 01/08/24 04:00 01/08/24 04:36 Oxygen Delivery Method Bi-pap Weight: 154.1 kg Body Mass Index (BMI) 43.6 Intake & Output: Intake and Output for Last 24 Hours 01/06/24 01/07/24 01/08/24 23:59 23:59 23:59 Intake Total 1984 / 1984 730.5 / 830.5 200 / 200 Output Total 1000 / 1000 950 / 1250 450 / 450 Balance 985 / 985 -219.5 / -419.5 -250 / -250 Lab / Micro Data 01/08/24 07:53 01/08/24 07:53 Labs: Laboratory Results - last 24 hr 01/07/24 06:25: POC Glucose 107 H 01/07/24 11:30: POC Glucose 152 H 01/07/24 16:56: POC Glucose 129 H 01/07/24 17:18: Vancomycin Trough 14.3 01/07/24 22:19: POC Glucose 121 H Micro: Microbiology 01/06/24 Unknown Wound - Leg, Right Gram Stain - Final 01/06/24 Unknown Wound - Leg, Right Wound Culture - Preliminary No growth-Final to follow 01/03/24 10:55 Blood Culture (Wb) - Anticubital Right Blood Culture - Preliminary 01/03/24 11:07 Blood Culture (Wb) - Anticubital Left Blood Culture - Preliminary No growth in 48 hours. 01/03/24 13:05 Wound - Leg, Right Gram Stain - Final 01/03/24 13:05 Wound - Leg, Right Wound Culture - Final Pseudomonas aeruginosa Physical Exam Const alert and no apparent distress Resp normal respiratory effort and no retractions Extremity Extremity Narrative: slight edema in dorsum of left hand. Assessment & Plan Assessment/Plan (1) Wound of right leg: (2) Infected wound: (3) Chronic venous insufficiency: (4) Elevated serum creatinine: PLAN: Plan Infected right leg wounds * Wound culture positive for Pseudomonas aeroginosa on 01/02. Wound Cx from 01/05 pending. * 01/05: 1. Surgical skin graft site prep to the right lower extremity 2. Application of skin graft substitute, right lower extremity * Abx with vancomycin, levofloxacin and metronidazole. * ID prescribed 1 more week of levofloxacin and amox/CA for discharge. Bradycardia * Patient with asymptomatic bradycardia however heart rate is in the 40s. * Still has not received carvedilol since the . Generalized weakness/debility due to advancing age and chronic comorbidities/deconditioning * Patient currently living at [facility] * Plan is to return there at discharge * PT/OT following * Case management/social work consulted to assist with discharge planning DM-2 * Hemoglobin A1c from October was 5.2. * Hold Mounjaro -continue subcu insulin- basal-Cardiac/carb controlled diet * SSI * Accu-Cheks as ordered Aphasia * On 01/05 patient was non-verbal, did not move any extremities. This seems intentional as patient was not speaking and then not moving anything eventually saying that could not feel anything when he clearly could. Staff said that he is similar events like this in the past with minimal. * Head CT here was negative * As I feel that this is intentional, is inconsistent exam is not in line with anything acutely neurologic, I do not feel any additional neurologic workup is necessary at this time. Urinary retention * post-operative. Known BPH on tamsulosin. * follow up with as outpt. Chronic conditions: * Chronic anemia: stable * Gastric ulcers-Continue Protonix 40 mg daily * Elevated serum creatinine on CKD stage QW-AVAx-Hqrbvmtad has resolved and patient is back to baseline creatinine of 1.19 today-Baseline serum creatinine appears to run between 1.1-1.3-1.46 on admission-Avoid nephrotoxins with CKD * Paroxysmal atrial fibrillation/flutter-carvedilol on hold given bradycardia. anticoagulated with apixaban. * valvular heart disease-Status post aortic valve [id number]-[id number]-Ct current issues-Last echocardiogram was 2021 and there were no stenotic changes within the bioprosthetic valve at that time -EF 55% * Hypertension-Continue amlodipine-Continue home carvedilol * History of DVT-Chronic right lower extremity DVT noted on imaging at [place] on 10/22/2023-Will need to hold Eliquis for surgery and restart as soon as possible following -If not able to start immediately after surgery will need heparin drip versus Lovenox subcu * PAWEL-CPAP ordered nocturnally and with naps-Would recommend if patient receives anesthesia to utilize CPAP and if requires intubation extubate to CPAP * Obesity class III: complicates care and recovery. DVT prophylaxis-Subcu Lovenox 40 twice daily until can restart Eliquis CODE STATUS -DNR CCA with no intubation per paperwork from nursing facility disposition: Return to [facility].
--- NOTE | 2024-01-08 07:25 | TREXTCAR_ITS ---
Diet Diet Order/Speech Therapy: 01/06/24 15:50 Diet: Cardiac - Heart Healthy Dietary Modifications:: Consistent Carbohydrate Type of Dietary Supplement:: Santhosh Is pt able to select menu?: Yes Routine Orders/Code Status Code Status: DNRCC-A (no intubation. ) Wound(s) RIGHT LEG: Wound Type: Open Surgical Wound Dressing Change: KCI wound VAC right superior leg wound: Wound Type: nonhealing wound Dressing Change: Dakins moistened gauze right middle leg wound: Wound Type: nonhealing wound Dressing Change: Dakins moistened gauze right inferior leg wound: Wound Type: nonhealing wound Dressing Change: Dakins moistened gauze Therapies Weight Bearing: Weight bearing as tolerated (Weightbearing: Patient can be weightbearing as tolerated to the right lower extremity. Full weightbearing to left lower extremity.) Problem/Diagnosis (1) Wound of right leg: Status: Acute Code(s): S81.801A - Unspecified open wound, right lower leg, initial encounter (2) Infected wound: Status: Acute Code(s): T14.8XXA - Other injury of unspecified body region, initial encounter; L08.9 - Local infection of the skin and subcutaneous tissue, unspecified (3) Chronic venous insufficiency: Status: Chronic Code(s): I87.2 - Venous insufficiency (chronic) (peripheral) (4) Elevated serum creatinine: Status: Acute Code(s): R79.89 - Other specified abnormal findings of blood chemistry Plan Infected right leg wounds * Wound culture positive for Pseudomonas aeroginosa on 01/02. Wound Cx from 01/05 pending. * 01/05: 1. Surgical skin graft site prep to the right lower extremity 2. Application of skin graft substitute, right lower extremity * Abx with vancomycin, levofloxacin and metronidazole. * ID prescribed 1 more week of levofloxacnin and amox/CA for discharge. Bradycardia * Patient with asymptomatic bradycardia however heart rate is in the 40s. * Still has not received carvedilol since the . Generalized weakness/debility due to advancing age and chronic comorbidities/deconditioning * Patient currently living at [facility] * Plan is to return there at discharge * PT/OT following * Case management/social work consulted to assist with discharge planning DM-2 * Hemoglobin A1c from October was 5.2. * Hold Mounjaro -continue subcu insulin- basal-Cardiac/carb controlled diet * SSI * Accu-Cheks as ordered Aphasia * On 01/05 patient was non-verbal, did not move any extremities. This seems intentional as patient was not speaking and then not moving anything eventually saying that could not feel anything when he clearly could. Staff said that he is similar events like this in the past with minimal. * Head CT here was negative * As I feel that this is intentional, is inconsistent exam is not in line with anything acutely neurologic, I do not feel any additional neurologic workup is necessary at this time. Chronic conditions: * Chronic anemia: stable * Gastric ulcers-Continue Protonix 40 mg daily * Elevated serum creatinine on CKD stage SG-TTHa-Aachvsbec has resolved and patient is back to baseline creatinine of 1.19 today-Baseline serum creatinine appears to run between 1.1-1.3-1.46 on admission-Avoid nephrotoxins with CKD * Paroxysmal atrial fibrillation/flutter-carvedilol on hold given bradycardia. anticoagulated with apixaban. * valvular heart disease-Status post aortic valve cwzlgfuewoe-wfksqhdtrbjla-Ng current issues-Last echocardiogram was 2021 and there were no stenotic changes within the bioprosthetic valve at that time -EF 55% * Hypertension-Continue amlodipine-Continue home carvedilol * BPH with obstruction-Continue home Flomax-Will refer to urology at discharge as patient has multiple complaints with regards to this * History of DVT-Chronic right lower extremity DVT noted on imaging at [place] on 10/22/2023-Will need to hold Eliquis for surgery and restart as soon as possible following -If not able to start immediately after surgery will need heparin drip versus Lovenox subcu * PAWEL-CPAP ordered nocturnally and with naps-Would recommend if patient receives anesthesia to utilize CPAP and if requires intubation extubate to CPAP * Obesity class III: complicates care and recovery. DVT prophylaxis-Subcu Lovenox 40 twice daily until can restart Eliquis CODE STATUS -DNR CCA with no intubation per paperwork from nursing facility disposition: Return to [facility]. Allergies/Procedures Done in Hospital Allergies ibuprofen (From Nuprin) Allergy (Verified 01/03/24 09:36) Unknown Procedures: - (1. 3 full-thickness ulceration to the right lateral lower extremity that showed evidence of tunneling and bridging between all 3 wounds with severe undermining. 2. Removal of all devitalized skin showed evidence of mild purulent drainage. Culture was taken to be sent for microbiology and culture ) Type of Care/Length of Stay Estimated LOS: Convalescent Care Less Than 30 days Type of Care Needed: Skilled Rehab Potential: Fair Prognosis: Good Additional Orders/Day of Discharge Day of Discharge: 01/08/24 Dietary and Speech Recommendations Dietitian Recommendations/Changes: Continue diet as ordered prior to procedure Continue Santhosh BID to support wound healing If PO intake becomes <75%, will consider extra food portions or oral nutrition supplements to promote adequate energy and protein intake. Discharge Plan Admission Admit Date/Time: 01/03/24 12:34 Primary Reason for Your Visit: diabetic leg wound Attending Provider: Vivek Gates Primary Care Provider: Gregg Reyna Consulting Providers: Marsha Chaney; Channing Barnard; Aaron Shannon Discharge Orders/Prescriptions Prescriptions: New levofloxacin 750 mg Tablet 750 mg PO DAILY@0600 7 Days Qty: 7 0RF amoxicillin-pot clavulanate 875-125 mg tablet 1 tab PO BID Qty: 14 0RF acetaminophen 500 mg Tablet 1,000 mg PO Q8 PRN (Reason: fever or pain) Qty: 30 0RF Santhosh (with collagen) 7-7-1.5 gram Powder In Packet 1 packet PO BIDCM Qty: 0 0RF oxycodone 5 mg Tablet 5 mg PO Q4H PRN PRN (Reason: Pain Score 4-10) 3 Days Qty: 12 0RF HySept 0.25 % Solution 1 applic topical BID Qty: 0 0RF Protocol: *Topical Application Instructions APPLICATION INSTRUCTIONS: right lower leg wounds Continued bumetanide 1 mg tablet 1 mg PO QDAY tamsulosin 0.4 mg capsule 0.8 mg PO DAILY insulin lispro 100 unit/mL solution 1 sliding scale dose subcut USEASDIRECTD Mounjaro 5 mg/0.5 mL pen injector 5 mg subcut SA aspirin 81 MG tablet,delayed release (DR/EC) 81 mg PO DAILY ascorbic acid (vitamin C) 250 mg tablet 250 mg PO DAILY atorvastatin 20 mg tablet 20 mg PO QHS amlodipine 5 mg tablet 5 mg PO DAILY Eliquis 5 mg tablet 5 mg PO BID ferrous sulfate [Feosol] 325 mg (65 mg iron) tablet 325 mg PO DAILY gabapentin 300 mg capsule 300 mg PO TID melatonin 3 mg tablet 3 mg PO QHS insulin glargine-yfgn 100 unit/mL (3 mL) Insulin Pen 40 unit subcut DAILY Qty: 0 0RF albuterol sulfate 2.5 mg /3 mL (0.083 %) Solution For Nebulization 2.5 mg inhalation Q2H PRN PRN (Reason: Dyspnea, wheezing) Qty: 0 0RF budesonide 0.5 mg/2 mL Suspension For Nebulization 0.5 mg inhalation BID.RT Qty: 0 0RF menthol-zinc oxide [Calmoseptine] 0.44-20.6 % Ointment 1 applic topical BID Qty: 0 0RF Protocol: *Topical Application Instructions APPLICATION INSTRUCTIONS: apply to affected region potassium chloride 20 mEq Tablet,Er Particles/Crystals 20 meq PO BIDCM Qty: 0 0RF nystatin [Nyamyc] 100,000 unit/gram Powder 1 applic topical TID Qty: 0 0RF Protocol: *Topical Application Instructions APPLICATION INSTRUCTIONS: to affected regions docusate sodium [Col-Rite] 100 mg capsule 100 mg PO BID trazodone 50 mg tablet 50 mg PO QHS budesonide-formoterol [Symbicort] 160-4.5 mcg/actuation HFA aerosol inhaler 2 inh inhalation BID Discontinued carvedilol 25 MG tablet 25 mg PO BID acetaminophen 325 mg Tablet 650 mg PO Q4H PRN PRN (Reason: Fever, pain 1-10/10) Qty: 0 0RF hydrocodone-acetaminophen 5-325 mg tablet 1 tab PO Q8H PRN (Reason: pain) Referrals / Follow Up: Aaron Shannon DPM [Med Staff - Active Staff] - Within 1 Week Douglas Santana MD [Med Staff - Active Staff] - Within 2 Weeks Gregg Reyna DO [Primary Care Provider] - Within 2 Weeks Disposition Disposition (needs filled in before D/C Order can be placed): [facility]
[2024-01-08 07:47] LABS: Bedside Glucose 117 mg/dL (74-106)
[2024-01-08 08:21] LABS: Absolute Lymphocyte Count 0.82 X10^3/uL (0.83-4.51); Absolute Neutrophil Count 3.1 X10^3/uL (2.0-7.7); Basophil# 0.03 X10^3/uL; Basophil% 0.6 % (0-1); Eosinophils% 4.3 % (0-5); Hematocrit 29.1 % (40-54); Hemoglobin 8.7 g/dL (13.0-16.5); Lymphocyte # 0.82 X10^3/ul (0.83-4.51); Lymphocyte % 17.6 % (19-41); Mean Corp Hgb Conc 29.9 g/dL (32-36); Mean Corpuscular Hgb 26.6 pg (27.0-32.0); Monocyte# 0.53 X10^3/uL; Monocyte% 11.3 % (0-10); NRBC Flagged by Analyzer 0 % (0-5); Neutrophil # 3.06 X10^3/uL (2.7-7.7); Neutrophil % 65.6 % (47-70); Platelet Count 147 K/mm3 (150-450); RBC Distribution Width CV 16.4 % (11.6-14.6); RBC Distribution Width SD 53.6 fl (35.1-43.9); Red Blood Count 3.27 M/mm3 (4.6-6.2); White Blood Count 4.7 K/mm3 (4.4-11.0)
[2024-01-08 08:42] LABS: Anion Gap 3 (5-15); BUN 23 mg/dL (7-18); BUN/Creat Ratio 21.3 RATIO (10-20); Calcium,Total 8.4 mg/dL (8.5-10.1); Chloride 109 mmol/L (98-107); Creatinine, Serum 1.08 mg/dL (0.70-1.30); EST Glomerular Filtration Rate 72 mL/min (>60); Est Glom Filt Rate - Afr Amer 87 mL/min (>60); Estimated Creatinine Clearance 102.74 ml/min; Glucose 123 mg/dL (74-106); Potassium 4.2 mmol/L (3.5-5.1); Sodium Level 138 mmol/L (136-145)
[2024-01-08] MEDS: Tamsulosin HCl 0.4 MG Capsule 0.8 MG PO (08:50)
[2024-01-08] MEDS: Ferrous Sulfate 325 MG Tablet PO (08:50)
[2024-01-08] MEDS: amLODIPine 5 MG Tablet PO (08:51)
[2024-01-08] MEDS: Carvedilol 12.5 MG Tablet PO (08:51)
[2024-01-08] MEDS: Aspirin E.C. 81 MG Tablet PO (08:51)
[2024-01-08] MEDS: Menthol/Lanolin/Calamine/Znox 113 GM Tube 1 APPLIC TOPICAL (08:52)
[2024-01-08] MEDS: Docusate Sodium 100 MG Capsule PO (08:52)
[2024-01-08] MEDS: Juven (unflavored) Packet 1 PACKET PO (08:52)
[2024-01-08] MEDS: Senna/Docusate Sodium 1 Tablet 2 TABLET PO (08:53)
[2024-01-08] MEDS: Enoxaparin 40 MG/0.4 ML Syringe SC (08:53)
[2024-01-08] MEDS: Bumetanide 2 MG Tablet 1 MG PO (08:54)
[2024-01-08] MEDS: Ascorbic Acid 500 MG Tablet 250 MG PO (08:55)
[2024-01-08] MEDS: Insulin Glargine-YFGN 100 UNIT/ML Pen 40 UNIT SC (08:55)
--- NOTE | 2024-01-08 09:31 | DS.PCM_ITS ---
Providers Date of Admission: 01/03/24 Primary Care Physician: Dr. Gregg Reyna, Consultations 01/03/24 15:38 Consult: Infectious Disease Routine Consulting Provider: Channing Barnard Reason for Consult: Polymicrobial infection EMERGENT Consult: No Notified: Yes Date Notified: 01/03/24 Time Notified: 12:42 Method of Notification: Text Consult: Onc/Wound/biochemistry technologist Routine Comment: Consult: Podiatry Routine Consulting Provider: Aaron Shannon Reason for Consult: Diabetic Leg wound EMERGENT Consult: No MD Notified: Yes Date Notified: 01/03/24 Time Notified: 12:38 Method of Notification: ED Physician Initiated Reason For Visit: INFECTED DIEBETIC LEG WOUND Diagnosis Discharge Diagnosis (1) Wound of right leg: Status: Acute Code(s): S81.801A - Unspecified open wound, right lower leg, initial encounter (2) Infected wound: Status: Acute Code(s): T14.8XXA - Other injury of unspecified body region, initial encounter; L08.9 - Local infection of the skin and subcutaneous tissue, unspecified (3) Chronic venous insufficiency: Status: Chronic Code(s): I87.2 - Venous insufficiency (chronic) (peripheral) (4) Elevated serum creatinine: Status: Acute Code(s): R79.89 - Other specified abnormal findings of blood chemistry Plan Infected right leg wounds * Wound culture positive for Pseudomonas aeroginosa on 01/02. Wound Cx from 01/05 pending. * 01/05: 1. Surgical skin graft site prep to the right lower extremity 2. Application of skin graft substitute, right lower extremity * Abx with vancomycin, levofloxacin and metronidazole. * ID prescribed 1 more week of levofloxacin and amox/CA for discharge. Bradycardia * Patient with asymptomatic bradycardia however heart rate is in the 40s. * Still has not received carvedilol since the . Generalized weakness/debility due to advancing age and chronic comorbidities/deconditioning * Patient currently living at [facility] * Plan is to return there at discharge * PT/OT following * Case management/social work consulted to assist with discharge planning DM-2 * Hemoglobin A1c from October was 5.2. * Hold Mounjaro -continue subcu insulin- basal-Cardiac/carb controlled diet * SSI * Accu-Cheks as ordered Aphasia * On 01/05 patient was non-verbal, did not move any extremities. This seems intentional as patient was not speaking and then not moving anything eventually saying that could not feel anything when he clearly could. Staff said that he is similar events like this in the past with minimal. * Head CT here was negative * As I feel that this is intentional, is inconsistent exam is not in line with anything acutely neurologic, I do not feel any additional neurologic workup is necessary at this time. Urinary retention * post-operative. Known BPH on tamsulosin. * follow up with as outpt. Chronic conditions: * Chronic anemia: stable * Gastric ulcers-Continue Protonix 40 mg daily * Elevated serum creatinine on CKD stage FX-KOYs-Oevrrnesm has resolved and patient is back to baseline creatinine of 1.19 today-Baseline serum creatinine appears to run between 1.1-1.3-1.46 on admission-Avoid nephrotoxins with CKD * Paroxysmal atrial fibrillation/flutter-carvedilol on hold given bradycardia. anticoagulated with apixaban. * valvular heart disease-Status post aortic valve ogfdkbioydp-mwnludwphynec-If current issues-Last echocardiogram was 2021 and there were no stenotic changes within the bioprosthetic valve at that time -EF 55% * Hypertension-Continue amlodipine-Continue home carvedilol * History of DVT-Chronic right lower extremity DVT noted on imaging at [facility] on 10/22/2023-Will need to hold Eliquis for surgery and restart as soon as possible following -If not able to start immediately after surgery will need heparin drip versus Lovenox subcu * PAWEL-CPAP ordered nocturnally and with naps-Would recommend if patient receives anesthesia to utilize CPAP and if requires intubation extubate to CPAP * Obesity class III: complicates care and recovery. DVT prophylaxis-Subcu Lovenox 40 twice daily until can restart Eliquis CODE STATUS -DNR CCA with no intubation per paperwork from nursing facility disposition: Return to [facility]. Medications at Discharge Home Medications aspirin 81 mg tablet,delayed release 81 mg PO DAILY 03/17/19 amlodipine 5 mg tablet 5 mg PO DAILY 10/28/23 apixaban 5 mg tablet (Eliquis) 5 mg PO BID 10/28/23 atorvastatin 20 mg tablet 20 mg PO QHS 10/28/23 ferrous sulfate 325 mg (65 mg iron) tablet (Feosol) 325 mg PO DAILY 10/28/23 gabapentin 300 mg capsule 300 mg PO TID 10/28/23 melatonin 3 mg tablet 3 mg PO QHS 10/28/23 albuterol sulfate 2.5 mg/3 mL (0.083 %) solution for nebulization 2.5 mg (3 mL) inhalation Q2H PRN PRN Dyspnea, wheezing #0 mL 11/03/23 budesonide 0.5 mg/2 mL suspension for nebulization 0.5 mg (2 mL) inhalation BID.RT #0 mL 11/03/23 insulin glargine-yfgn 100 unit/mL (3 mL) subcutaneous pen 40 unit (0.4 mL) subcut DAILY #0 mL 11/03/23 menthol 0.44 %-zinc oxide 20.6 % topical ointment (Calmoseptine) 1 applic topical BID #0 grams 11/03/23 nystatin 100,000 unit/gram topical powder (Nyamyc) 1 applic topical TID #0 grams 11/03/23 potassium chloride 20 mEq tablet,extended release(part/cryst) 20 meq PO BIDCM #0 tabs 11/03/23 ascorbic acid (vitamin C) 250 mg tablet 250 mg PO DAILY 11/29/23 bumetanide 1 mg tablet 1 mg PO QDAY 12/22/23 insulin lispro 100 unit/mL subcutaneous solution 1 sliding scale dose subcut USEASDIRECTD 12/22/23 tamsulosin 0.4 mg capsule 0.8 mg PO DAILY 12/22/23 tirzepatide 5 mg/0.5 mL subcutaneous pen injector (Mounjaro) 5 mg subcut SA 12/22/23 budesonide-formoterol HFA 160 mcg-4.5 mcg/actuation aerosol inhaler (Symbicort) 2 inh inhalation BID 01/03/24 docusate sodium 100 mg capsule (Col-Rite) 100 mg PO BID 01/03/24 trazodone 50 mg tablet 50 mg PO QHS 01/03/24 amoxicillin 875 mg-potassium clavulanate 125 mg tablet 1 tab PO BID #14 tabs 01/07/24 levofloxacin 750 mg tablet 750 mg PO DAILY@0600 7 days #7 tabs 01/07/24 acetaminophen 500 mg tablet 1,000 mg (2 x 500 mg) PO Q8 PRN fever or pain #30 tabs 01/08/24 arginine 7 gram-glutam 7 gram-CaHMB 1.5 yklv-xrvsy-ng-min oral pwd pkt (Santhosh (with collagen)) 1 packet PO BIDCM #0 ea 01/08/24 oxycodone 5 mg tablet 5 mg PO Q4H PRN PRN Pain Score 4-10 3 days #12 tabs 01/08/24 sodium hypochlorite 0.25 % solution (HySept) 1 applic topical BID #0 mL 01/08/24 Hospital Course Operations - (1. Surgical skin graft site prep to the right lower extremity 2. Application of skin graft substitute, right lower extremity) Summary of Care Provided Minutes Spent on Discharge: 40 Hospital Course: Patient was sent in by podiatry for a worsening lower extremity wounds. X-rays showed soft tissue laceration with tiny air bubbles within the soft tissue in the left leg overlying the lateral anterior aspect of the fibula. Patient was started on broad-spectrum antibiotics. On the , patient underwent surgical skin graft site prep to the right lower extremity and application of skin graft substitute to the right lower extremity. Wound VAC was placed. Wound culture came back showing Pseudomonas. Patient was seen by infectious disease would have the patient complete 7 more days of levofloxacin and Augmentin. While he was here, he developed an episode where he was not talking and not moving anything. His exam was inconsistent and head CT was unremarkable. Patient would eventually speak his headache and feel anything and then you would give him the noxious stimuli and then he would certainly wince. So it seemed functional, whether or not intentional is unclear but his workup was negative and no additional workup was necessary. Weight / BMI Weight Weight: 154.1 kg Body Mass Index (BMI) 43.6 ABG / Lab / Microbiology Data 01/08/24 07:53 01/08/24 07:53 Laboratory: Laboratory Results - last 24 hr 01/07/24 11:30: POC Glucose 152 H 01/07/24 16:56: POC Glucose 129 H 01/07/24 17:18: Vancomycin Trough 14.3 01/07/24 22:19: POC Glucose 121 H 01/08/24 06:22: POC Glucose 117 H 01/08/24 07:53: WBC 4.7, RBC 3.27 L, Hgb 8.7 L, Hct 29.1 L, MCV 89.0, MCH 26.6 L , MCHC 29.9 L, RDW Std Deviation 53.6 H, RDW Coeff of Carlito 16.4 H, Plt Count 147 L, MPV 12.0, Immature Gran % (Auto) 0.600, Neut % (Auto) 65.6, Lymph % (Auto) 17.6 L, [place] % (Auto) 11.3 H, Eos % (Auto) 4.3, Baso % (Auto) 0.6, Absolute Neuts (auto) 3.1, Absolute Lymphs (auto) 0.82 L, Nucleated RBC % 0, Sodium 138, Potassium 4.2, Chloride 109 H, Carbon Dioxide 26.0, Anion Gap 3 L, BUN 23 H, Creatinine 1.08, Estim Creat Clear Calc 102.74, Est GFR (MDRD) Af Amer 87, Est GFR (MDRD) Non-Af 72, BUN/Creatinine Ratio 21.3 H, Glucose 123 H, Calcium 8.4 L Microbiology: Microbiology 01/06/24 Unknown Wound - Leg, Right Gram Stain - Final 01/06/24 Unknown Wound - Leg, Right Wound Culture - Preliminary No growth-Final to follow 01/06/24 Unknown Wound - Leg, Right Anaerobic Culture - Preliminary No growth in 48 hours. 01/03/24 10:55 Blood Culture (Wb) - Anticubital Right Blood Culture - Preliminary 01/03/24 11:07 Blood Culture (Wb) - Anticubital Left Blood Culture - Preliminary No growth in 48 hours. 01/03/24 13:05 Wound - Leg, Right Gram Stain - Final 01/03/24 13:05 Wound - Leg, Right Wound Culture - Final Pseudomonas aeruginosa D/C Instructions Discharge Diet: Low fat / Low cholesterol and 2000 Calorie Control Diet Meaningful Use Info Meaningful Use Meaningful Use Diagnoses (Choose all that apply): None applicable Ischemic Stroke Statin Dosing Therapy Reference: STATIN DOSE THERAPY REFERENCE: * Patients > 75 years receive moderate or high dose statin therapy. * Patients 75 years or YOUNGER should receive HIGH intensity statin dose unless contraindicated. You will be required to document reason for non-treatment if statin daily dose does not meet guidelines. HIGH DOSE STATIN THERAPY DAILY Atorvastatin > than or = to 40 mg Rosuvastatin > than or = to 20 mg Amlodipine + Atorvastatin > than or = to 2.5/40 mg Ezetimibe + Simvastatin 10/80 mg Simvastatin 80mg Discharge Plan Admission Admit Date/Time: 01/03/24 12:34 Primary Reason for Your Visit: diabetic leg wound Attending Provider: Vivek Gates Primary Care Provider: Gregg Reyna Consulting Providers: Marsha Chaney; Channing Barnard; Aaron Shannon Discharge Orders/Prescriptions Prescriptions: New levofloxacin 750 mg Tablet 750 mg PO DAILY@0600 7 Days Qty: 7 0RF amoxicillin-pot clavulanate 875-125 mg tablet 1 tab PO BID Qty: 14 0RF acetaminophen 500 mg Tablet 1,000 mg PO Q8 PRN (Reason: fever or pain) Qty: 30 0RF Santhosh (with collagen) 7-7-1.5 gram Powder In Packet 1 packet PO BIDCM Qty: 0 0RF oxycodone 5 mg Tablet 5 mg PO Q4H PRN PRN (Reason: Pain Score 4-10) 3 Days Qty: 12 0RF HySept 0.25 % Solution 1 applic topical BID Qty: 0 0RF Protocol: *Topical Application Instructions APPLICATION INSTRUCTIONS: right lower leg wounds Continued bumetanide 1 mg tablet 1 mg PO QDAY tamsulosin 0.4 mg capsule 0.8 mg PO DAILY insulin lispro 100 unit/mL solution 1 sliding scale dose subcut USEASDIRECTD Mounjaro 5 mg/0.5 mL pen injector 5 mg subcut SA aspirin 81 MG tablet,delayed release (DR/EC) 81 mg PO DAILY ascorbic acid (vitamin C) 250 mg tablet 250 mg PO DAILY atorvastatin 20 mg tablet 20 mg PO QHS amlodipine 5 mg tablet 5 mg PO DAILY Eliquis 5 mg tablet 5 mg PO BID ferrous sulfate [Feosol] 325 mg (65 mg iron) tablet 325 mg PO DAILY gabapentin 300 mg capsule 300 mg PO TID melatonin 3 mg tablet 3 mg PO QHS insulin glargine-yfgn 100 unit/mL (3 mL) Insulin Pen 40 unit subcut DAILY Qty: 0 0RF albuterol sulfate 2.5 mg /3 mL (0.083 %) Solution For Nebulization 2.5 mg inhalation Q2H PRN PRN (Reason: Dyspnea, wheezing) Qty: 0 0RF budesonide 0.5 mg/2 mL Suspension For Nebulization 0.5 mg inhalation BID.RT Qty: 0 0RF menthol-zinc oxide [Calmoseptine] 0.44-20.6 % Ointment 1 applic topical BID Qty: 0 0RF Protocol: *Topical Application Instructions APPLICATION INSTRUCTIONS: apply to affected region potassium chloride 20 mEq Tablet,Er Particles/Crystals 20 meq PO BIDCM Qty: 0 0RF nystatin [Nyamyc] 100,000 unit/gram Powder 1 applic topical TID Qty: 0 0RF Protocol: *Topical Application Instructions APPLICATION INSTRUCTIONS: to affected regions docusate sodium [Col-Rite] 100 mg capsule 100 mg PO BID trazodone 50 mg tablet 50 mg PO QHS budesonide-formoterol [Symbicort] 160-4.5 mcg/actuation HFA aerosol inhaler 2 inh inhalation BID Discontinued carvedilol 25 MG tablet 25 mg PO BID acetaminophen 325 mg Tablet 650 mg PO Q4H PRN PRN (Reason: Fever, pain 1-10) Qty: 0 0RF hydrocodone-acetaminophen 5-325 mg tablet 1 tab PO Q8H PRN (Reason: pain) Referrals / Follow Up: Aaron Shannon DPM [Med Staff - Active Staff] - Within 1 Week Douglas Santana MD [Med Staff - Active Staff] - Within 2 Weeks Gregg Reyna DO [Primary Care Provider] - Within 2 Weeks Disposition Disposition (needs filled in before D/C Order can be placed): [facility] Charges/Coding Visit Charges Inpatient E&M: 27142 Disch Hosp >30min
--- NOTE | 2024-01-08 09:50 | PCA ---
Addendum entered by Christine Donohue 01/08/24 11:17: faxed dc orders to [phone] as the other line provided by [facility] was sending an error, transportation arranged for 2pm via [facility]. Brandt Lui aware of dc and p/u time Original Note: Faxed Transfer to [facility], Signed Med List, and RX to [facility], will arrange transportation for patient.
--- NOTE | 2024-01-08 11:04 | CASEMGMT ---
Social work Surgeon here inquiring if they have the wound vac ready for pt. RADHA reviewed notes in [facility], the vac settings were sent yesterday and Clark at [facility] did respond with a thank you, implying they have the vac. [facility] did call [facility] to check, message left for Clark to call the RN back directly on the floor. EMANUEL Duque
--- NOTE | 2024-01-08 11:33 | PCM.PN.SRG ---
Subjective Subjective Mr. Alvarez is a 68-year-old diabetic male seen at bedside today for wound VAC change. The patient [facility] by medicine. Patient is s/p surgical skin graft site prep with application of skin graft substitute with application of wound VAC to the right lower extremity. DOS: 01/06/2024. POD #2. Patient is doing well. Denies any pain. No acute events overnight. Denies trauma. Denies constitutional symptoms. No other pedal complaints at this time. Objective Data Objective Data Vital Signs: Vital Signs Temp Pulse Resp BP Pulse Ox O2 Del Method FiO2 98.0 F 60 18 139/60 H 95 Room Air 30 01/08/24 08:39 01/08/24 08:39 01/08/24 08:39 01/08/24 08:39 01/08/24 08:39 01/08/24 08:39 01/08/24 04:36 Oxygen Delivery Method Room Air Weight: 154.1 kg Body Mass Index (BMI) 43.6 Intake & Output: Intake and Output for Last 24 Hours 01/06/24 01/07/24 01/08/24 23:59 23:59 23:59 Intake Total 1984 / 1984 730.5 / 830.5 200 / 200 Output Total 1000 / 1000 950 / 1250 450 / 450 Balance 985 / 985 -219.5 / -419.5 -250 / -250 Lab / Micro Data 01/08/24 07:53 01/08/24 07:53 Labs: Laboratory Results - last 24 hr 01/07/24 11:30: POC Glucose 152 H 01/07/24 16:56: POC Glucose 129 H 01/07/24 17:18: Vancomycin Trough 14.3 01/07/24 22:19: POC Glucose 121 H 01/08/24 06:22: POC Glucose 117 H 01/08/24 07:53: WBC 4.7, RBC 3.27 L, Hgb 8.7 L, Hct 29.1 L, MCV 89.0, MCH 26.6 L, MCHC 29.9 L, RDW Std Deviation 53.6 H, RDW Coeff of Carlito 16.4 H, Plt Count 147 L, MPV 12.0, Immature Gran % (Auto) 0.600, Neut % (Auto) 65.6, Lymph % (Auto) 17.6 L, [place] % (Auto) 11.3 H, Eos % (Auto) 4.3, Baso % (Auto) 0.6, Absolute Neuts (auto) 3.1, Absolute Lymphs (auto) 0.82 L, Nucleated RBC % 0, Sodium 138, Potassium 4.2, Chloride 109 H, Carbon Dioxide 26.0, Anion Gap 3 L, BUN 23 H, Creatinine 1.08, Estim Creat Clear Calc 102.74, Est GFR (MDRD) Af Amer 87, Est GFR (MDRD) Non-Af 72, BUN/Creatinine Ratio 21.3 H, Glucose 123 H, Calcium 8.4 L Micro: Microbiology 01/06/24 Unknown Wound - Leg, Right Gram Stain - Final 01/06/24 Unknown Wound - Leg, Right Wound Culture - Preliminary 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 01/03/24 10:55 Blood Culture (Wb) - Anticubital Right Blood Culture - Preliminary 01/03/24 11:07 Blood Culture (Wb) - Anticubital Left Blood Culture - Preliminary No growth in 48 hours. 01/03/24 13:05 Wound - Leg, Right Gram Stain - Final 01/03/24 13:05 Wound - Leg, Right Wound Culture - Final Pseudomonas aeruginosa Physical Exam Narrative Vascular: DP and PT pulses are palpable to the right lower extremity. CFT is brisk. No evidence of erythema or proximal streaking. Skin temperature gradient is warm to warm from proximal ankle to distal digits. No increase in warmth. Neurological: Light touch intact. Patient response to painful stimuli. Dermatological: Full-thickness ulceration to the lateral right lower extremity. Full-thickness ulceration measures 24.5 x 10.5 x 1.5 cm. Wound base is granular nature. Mild sanguinous drainage is appreciated. No malodor or probe to bone. Musculoskeletal: Muscle strength is 5 out of 5 in all quadrants right lower extremity. Mild pain on palpation to the full-thickness ulceration to the right lateral leg. No pain with calf compression. 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 All findings were discussed with the patient. All questions were answered to the patient satisfaction. Patient is s/p surgical skin graft site prep with application of skin graft substitute with application of wound VAC to the right lower extremity. DOS: 01/06/2024. POD #2 Patient's right lower extremity wound VAC was removed as he [facility] be [facility]. The right lower extremity full-thickness wound was dressed with Adaptic, saline moist gauze, dry sterile dressing and a single layer Garcias compression bandage was donned to the right lower extremity. Once the patient returns to the nursing facility the wound VAC should be changed every other day. The patient will need to follow-up at the wound care center either on the 01/11 or 01/18 post discharge. SNF will need to arrange transportation and call for appointment and time. The patient will need to follow-up every Wednesday after further evaluation and treatment. Medicine: On board, medical management Infectious disease: On board, patient will be on 1 week of Levaquin and Augmentin at discharge. Social work: On board for discharge planning Patient is cleared from a podiatry perspective to discharge back to nursing facility, once cleared by medicine and infectious disease team. Podiatry to sign off and follow from a distance. Please reach out to Dr. Shannon with any questions or concerns. Thank you for letting me be involved in the patient care. (2) Lymphedema of right lower extremity: (3) Acute painful diabetic polyneuropathy:
[2024-01-08] MEDS: Albuterol 2.5 MG/3 ML VIAL.NEB. INHALATION (13:33)
[2024-01-08] MEDS: oxyCODONE 5 MG Tablet PO (13:59)
[2024-01-08 21:53] LABS: Bedside Glucose 141 mg/dL (74-106)
== END 2024-01-08 14:21 | disposition skilled nursing facility (03) | DRG 623 ==
LOC: ED 11:37 → MS3 12:46
PROVIDERS: Anesthesiology; Family Medicine; Podiatrist Foot & Ankle Surgery; Admitting Provider Internal Medicine; Emergency Provider Emergency Medicine
DX: E11.622 Type 2 diabetes mellitus with other skin ulcer (principal); I13.0 Hypertensive heart and chronic kidney disease with heart failure and stage 1 through stage 4 chronic kidney disease, or unspecified chronic kidney disease; R47.01 Aphasia; N13.8 Other obstructive and reflux uropathy; Z68.41 Body mass index [BMI] 40.0-44.9, adult; L97.813 Non-pressure chronic ulcer of other part of right lower leg with necrosis of muscle; E11.22 Type 2 diabetes mellitus with diabetic chronic kidney disease; B96.5 Pseudomonas (aeruginosa) (mallei) (pseudomallei) as the cause of diseases classified elsewhere; E11.42 Type 2 diabetes mellitus with diabetic polyneuropathy; I50.9 Heart failure, unspecified; I48.0 Paroxysmal atrial fibrillation; N18.4 Chronic kidney disease, stage 4 (severe); J44.9 Chronic obstructive pulmonary disease, unspecified; E11.51 Type 2 diabetes mellitus with diabetic peripheral angiopathy without gangrene; E66.01 Morbid (severe) obesity due to excess calories; Z79.4 Long term (current) use of insulin; G47.33 Obstructive sleep apnea (adult) (pediatric); I89.0 Lymphedema, not elsewhere classified; R00.1 Bradycardia, unspecified; R54 Age-related physical debility; K59.09 Other constipation; Z95.2 Presence of prosthetic heart valve; N40.1 Benign prostatic hyperplasia with lower urinary tract symptoms; R33.8 Other retention of urine; R35.0 Frequency of micturition; R35.1 Nocturia; R39.11 Hesitancy of micturition; R79.89 Other specified abnormal findings of blood chemistry; G47.00 Insomnia, unspecified; Z66 Do not resuscitate; Z99.81 Dependence on supplemental oxygen; Z79.01 Long term (current) use of anticoagulants; Z79.82 Long term (current) use of aspirin; Z79.51 Long term (current) use of inhaled steroids; Z79.899 Other long term (current) drug therapy; Z87.891 Personal history of nicotine dependence
CPT/HCPCS: 36415; 70450; 71045; 73590; 80048; 80053; 80202; 82962; 83605; 83735; 84100; 85014; 85018; 85025; 85610; 85652; 85730; 86140; 87040; 87070; 87075; 87077; 87186; 87205; 87640; 93005; 94003; 94640; 94660; 94762; 97116; 97161; 97166; 97530; 97802; 99284; J7040; J7050; A4216; J2405

== ENCOUNTER 2024-02-09 08:00 | Outpatient (RCR) | payer MEDICARE, SELFPAY ==
[2024-01-10 00:39] VITALS: BP 167/86; PULSE 60; RESP 16; TEMP 36.2; BMI 44.6
[2024-01-19 13:52] VITALS: BP 155/69; PULSE 56; RESP 18; TEMP 35.8; BMI 44.6
--- NOTE | 2024-01-19 15:55 | PCM.WC.HP ---
History of Present Illness Date of Service: 01/19/24 Chief Complaint: Ulcerations of the right lateral calf with large areas of necrosis, and extension into muscle History of Wound: This is a 68-year-old morbidly obese diabetic male who presented with 3 large ulcerations on the right lateral calf. According to the patient, they had been present for approximately 6 weeks. The origin of the ulcerations is uncertain, though they may have resulted from a fall which the patient experienced while at home. The patient has multiple pre-existing medical problems, which have been listed below. He had recently been treated for blood loss anemia from a gastrointestinal source. He is a resident of [facility] in [place], [place]. He has a history of bilateral lower extremity deep vein thrombosis, and a venous duplex examination performed on October 22, 2023, revealed chronic changes in the right lower extremity deep venous system, with a normal superficial venous system. Management of the patient's wound had been by means of the alf [employer], Dr. Reyna, from [place], [place]. Approximately 1 week prior to presentation, the patient underwent placement of a left upper extremity PICC catheter and has been receiving vancomycin and Zosyn intravenously. The patient had been on chronic systemic anticoagulation with Eliquis until recently, which was discontinued as a result of his recent gastrointestinal bleeding. The patient underwent laboratory studies recently, the results of which are as follows: Glucose 106, sodium 145, potassium 4.9, chloride 107, BUN 30, creatinine 1.3, calcium 9.0, white blood count 5.4, hemoglobin 10.0, hematocrit 32.3, platelets 141,000, sed rate 35, D-dimer 1.81, C-reactive protein 37.6. A chest x-ray on October 28, 2023, revealed no acute abnormalities. The patient is not active. He claims to sleep on a flat mattress at night. Progress of Wound: Mr. Alvarez is a 68-year-old diabetic male presenting to wound care center today for follow-up evaluation of full-thickness ulceration secondary to surgical intervention to the lateral aspect of the right lower extremity. Patient is currently residing in care home facility with [id number], he is getting wound VAC application every other day to the right lower extremity. He does admit to some bilateral swelling secondary to not having compression to his bilateral lower extremity. Otherwise the patient states of minimal to some pain with wound VAC changes otherwise he notices great improvement to the ulceration. Blood sugars well-controlled. Denies trauma. Denies constitutional symptoms. No other pedal complaints at this time. 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 BPH (benign prostatic hyperplasia) Atrial fibrillation History of deep vein thrombosis (DVT) of lower extremity Blood loss anemia Hypertension Hiatal hernia Diverticulosis Debility Morbid obesity with BMI of 40.0-44.9, adult Obstructive sleep apnea on CPAP History of congestive heart failure Impaired mobility SOB (shortness of breath) Recurrent right inguinal hernia Heart murmur Heart failure 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 2 diabetes mellitus Aortic valve disease Renal mass, left History of DVT (deep vein thrombosis) Valvular heart disease Atrial fibrillation/flutter Chronic acquired lymphedema Chronic anemia Venous insufficiency (chronic) (peripheral) Ulcer of left lower extremity with fat layer exposed Superficial thrombosis of left lower extremity Peripheral vascular disease of lower extremity with ulceration Sleep apnea Morbid obesity DM2 (diabetes mellitus, type 2) Benign essential HTN Home Medications ?Medication ?Instructions ?Recorded ?Last Taken ?Type aspirin 81 mg tablet,delayed 81 mg PO DAILY 03/17/19 Unknown History release amlodipine 5 mg tablet 5 mg PO DAILY 10/28/23 Unknown History apixaban 5 mg tablet (Eliquis) 5 mg PO BID 10/28/23 Unknown History atorvastatin 20 mg tablet 20 mg PO QHS 10/28/23 Unknown History ferrous sulfate 325 mg (65 mg 325 mg PO DAILY 10/28/23 Unknown History iron) tablet (Feosol) gabapentin 300 mg capsule 300 mg PO TID 10/28/23 Unknown History melatonin 3 mg tablet 3 mg PO QHS 10/28/23 Unknown History albuterol sulfate 2.5 mg/3 mL 2.5 mg (3 mL) inhalation Q2H PRN 11/03/23 Unknown Rx (0.083 %) solution for nebulization PRN Dyspnea, wheezing #0 mL budesonide 0.5 mg/2 mL suspension 0.5 mg (2 mL) inhalation BID.RT #0 11/03/23 Unknown Rx for nebulization mL insulin glargine-yfgn 100 unit/mL 40 unit (0.4 mL) subcut DAILY #0 mL 11/03/23 Unknown Rx (3 mL) subcutaneous pen menthol 0.44 %-zinc oxide 20.6 % 1 applic topical BID #0 grams 11/03/23 Unknown Rx topical ointment (Calmoseptine) nystatin 100,000 unit/gram topical 1 applic topical TID #0 grams 11/03/23 Unknown Rx powder (Nyamyc) potassium chloride 20 mEq 20 meq PO BIDCM #0 tabs 11/03/23 Unknown Rx tablet,extended release(part/cryst) ascorbic acid (vitamin C) 250 mg 250 mg PO DAILY 11/29/23 Unknown History tablet bumetanide 1 mg tablet 1 mg PO QDAY 12/22/23 Unknown History insulin lispro 100 unit/mL 1 sliding scale dose subcut 12/22/23 Unknown History subcutaneous solution USEASDIRECTD tamsulosin 0.4 mg capsule 0.8 mg PO DAILY 12/22/23 Unknown History tirzepatide 5 mg/0.5 mL 5 mg subcut SA 12/22/23 Unknown History subcutaneous pen injector (Joe) budesonide-formoterol HFA 160 2 inh inhalation BID 01/03/24 Unknown History mcg-4.5 mcg/actuation aerosol inhaler (Symbicort) docusate sodium 100 mg capsule 100 mg PO BID 01/03/24 Unknown History (Col-Rite) trazodone 50 mg tablet 50 mg PO QHS 01/03/24 Unknown History amoxicillin 875 mg-potassium 1 tab PO BID #14 tabs 01/07/24 Unknown Rx clavulanate 125 mg tablet levofloxacin 750 mg tablet 750 mg PO DAILY@0600 7 days #7 tabs 01/07/24 Unknown Rx acetaminophen 500 mg tablet 1,000 mg (2 x 500 mg) PO Q8 PRN 01/08/24 Unknown Rx fever or pain #30 tabs arginine 7 gram-glutam 7 1 packet PO BIDCM #0 ea 01/08/24 Unknown Rx gram-CaHMB 1.5 hjmr-oeykn-yu-min oral pwd pkt (Santhosh (with collagen)) oxycodone 5 mg tablet 5 mg PO Q4H PRN PRN Pain Score 01/08/24 Unknown Rx 4-10 3 days #12 tabs sodium hypochlorite 0.25 % 1 applic topical BID #0 mL 01/08/24 Unknown Rx solution (HySept) Allergy/AdvReac Type Severity Reaction Status Date / Time ibuprofen (From Nuprin) Allergy Unknown Verified 01/03/24 09:36 Family History Mother Diabetes Father Cirrhosis of liver Alcoholism Surgical History History of embolic filter insertion History of right inguinal hernia repair H/O colectomy History of repair of inguinal hernia History of bladder surgery History of tonsillectomy and adenoidectomy History of right inguinal hernia repair S/P AVR (aortic valve replacement) Social History housing: alf Smoking Status: Former smoker how long ago did patient quit smoking: Quit ~ 20 yrs prior, smoked age 15 until quit ~ 2 ppd. alcohol intake: never substance use type: does not use Vital Signs Vital Signs Vital Signs: 01/19/24 13:52 Temperature 96.5 F L Temperature Source Temporal Pulse Rate 56 L Respiratory Rate 18 Blood Pressure 155/69 H Blood Pressure Mean 97 Blood Pressure Source Monitor Blood Pressure Position Semi-Fowlers Blood Pressure Location Left Forearm Oxygen Delivery Method Room Air Weight Weight: 157.85 kg Body Mass Index (BMI) 44.6 Physical Exam Narrative Vascular: DP and PT pulses are palpable to the right lower extremity. Nonpitting edema appreciated to the right lower extremity. Skin temperature gradient is warm to warm from proximal ankles to distal digit. No focal increase appreciated. Neurological: Light touch intact. Patient response to painful stimuli. Protective sensation is diminished. Dermatological: Full-thickness ulceration to the lateral aspect of the right leg measuring 25.2 x 13.0 x 1.5 cm. Wound base is under percent granular nature with evidence of sanguinous drainage. No malodor or probe to bone. No sign of infection. Excisional debridement of the lateral right leg ulceration down to including subcutaneous tissue with a number 5 mm dermal curette without incident. Predebridement measurement is 24.8 x 12.0 x 0.2 cm. Postdebridement measurement is 25.0 x 12.2 x 0.4 cm. Musculoskeletal: Mild pain to palpation to all 3 full-thickness ulceration. No pain with calf pression. Debridement Note Debridement Note Debridement Free Text: Excisional debridement of the lateral right leg ulceration down to including subcutaneous tissue with a number 5 mm dermal curette without incident. Predebridement measurement is 24.8 x 12.0 x 0.2 cm. Postdebridement measurement is 25.0 x 12.2 x 0.4 cm. 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 ) Arrival Mode Wheelchair Patient Identification Verified (Name & Yes ) Height and Weight Body Mass Index (BMI) 44.6 BMI Classification Obese Vital Signs Temperature (97.8 F-99.1 F) 96.5 F L Temperature Source Temporal Pulse Rate (60-100) 56 L Pulse Location Monitor Respiratory Rate (12-18) 18 Respiratory rate source Observation Oxygen Delivery Method Room Air Blood Pressure (90/60-120/80) 155/69 H Blood Pressure Mean 97 Source Monitor Position Semi-Fowlers Blood Pressure Location Left Forearm History Since Last Visit- (Skip if this is Patient's initial visit) Have you changed medications since your No last visit? Any new allergies or adverse reactions No Had a fall/change in ADL's that may No increase risk of falls Signs or symptoms of abuse and/or No neglect since last visit Have you been in the hospital since your Yes last visit? Has dressing in place as prescribed Yes Has compression in place as prescribed No Has offloadiing in place as prescribed Yes Experienced any changes in pain level or No management Left Footwear Regular Shoe Right Footwear Surgical Shoe with pressure relief insole Pain Scale: 0-10 Numeric Is Patient Pain Free? Yes - Nurse 1 - General Ulcer Measurement Start: 01/19/24 13:51 Freq: Status: Active Protocol: Activity Type Activity Date Activity User E-sign Co-sign Detail Recorded Client Recorded Date Recorded By Document 01/19/24 13:52 KW l 01/19/24 14:25 KW 01/19/24 13:52 Wound Center Nurse 1 #5 RT LAT LE POST-OP -Current Size (cm) - Length 25.2 -Current Size (cm) - Width 13 -Current Size (cm) - Depth 1.5 -Total Square Cm 327.6 -Exudate Amt Large -Exudate Type Serosanguineous -Wound Margin Distinct, Outline Attached -Granulation Amt Large (67-100%) -Granulation Quality Red -Texture (Mariza-wound Skin Appearance) Assessed -Moisture (Mariza-wound Skin Appearance) Assessed -Color (Mariza-wound Skin Appearance) Assessed, Hemosiderin Staining -Temperature (Mariza-wound Skin No Abnormality Appearance) (Pt Warm) -Tenderness on Palpation (Mariza-wound No Skin Appearance) -Ulcer Cleansing Soap and Water -Foul Odor after Cleansing No -Anesthetic Used 4% Lidocaine Solution - Nurse 2 - General Ulcer CM Notes Start: 01/19/24 13:51 Freq: Status: Active Protocol: Activity Type Activity Date Activity User E-sign Co-sign Detail Recorded Client Recorded Date Recorded By Document 01/19/24 14:41 JF 000 01/19/24 14:44 JF 01/19/24 14:41 Wound Center Nurse 2 -Time 14:41 -Correct Patient Yes -Correct Side, Site, Position Yes -Correct Procedure Yes -Procedure Performed Yes -Type of Procedure Debridement -Clinical Debridement Subcutaneous -Tissue Removed Subcutaneous -Post Debridement (cm) - Length 25 -Post Debridement (cm) - Width 12.2 -Post Debridement (cm) - Depth 0.4 -Total Square (Post) (cm) 305.0 -Area of Debridement (cm) - Length 25 -Area of Debridement (cm) - Width 12.2 -Total Square (Area) (cm) 305.0 -Tunneling No -Undermining/Tunneling No -Circular Undermining No -Wound/Ulcer Outcome Not Healed -Ulcer Cleansing Rinsed/ Irrigated with Saline -Foul Odor after Cleansing No -Bioengineered Tissue No -Bleeding Controlled with Pressure -Treatment Response Procedure Tolerated Well -Offloading No -Debridement - Subq, 1st 20sq cm Yes -Debridement, SubQ, ea addt'l 20sq cm 15 or part thereof Pain Scale: 0-10 Numeric Is Patient Pain Free? Yes - Nurse 3 - General Ulcer D/C NN Start: 01/19/24 13:51 Freq: Status: Active Protocol: Activity Type Activity Date Activity User E-sign Co-sign Detail Recorded Client Recorded Date Recorded By Document 01/19/24 15:04 KW l 01/19/24 15:04 KW 01/19/24 15:04 Wound Care Center Nurse 3 #5 RT LAT LE POST-OP -Other Dressing DAKINS SOAKED GAUZE -Primary Dressing Covered/Secured with Dry Gauze & Roll Gauze, Secured with Tape Right -Compression Wrap Celso Wrap Left -Compression Wrap Celso Wrap Pain Scale: 0-10 Numeric Is Patient Pain Free? Yes WC - Visit Discharge Discharge Condition Stable Ambulatory Status Wheelchair Medication Reconcilliation completed & No provided to patient/care provider Clinical Summary of Care Provided Yes Assessment/Plan Assessment/Plan (1) Non-pressure chronic ulcer of other part of right lower leg with fat layer exposed: CODE(S): L97.812 - Non-pressure chronic ulcer of other part of right lower leg with fat layer exposed PLAN: Patient was examined and evaluated. All findings were discussed with the patient. All questions were answered to the patient's satisfaction. Excisional debridement of the lateral right leg ulceration down to including subcutaneous tissue with a number 5 mm dermal curette without incident. Predebridement measurement is 24.8 x 12.0 x 0.2 cm. Postdebridement measurement is 25.0 x 12.2 x 0.4 cm. Patient's right lower extremities are clean and patted dry. We do not have the wound care supplies to don the wound care at this time. The full-thickness ulceration was dressed with Dakin solution dry sterile dressing and bilateral Celso wraps were applied to both lower extremities for compression control. Wound VAC orders were given to the care home facility for every other day wound VAC changes, setting 125 mmHg. Follow-up at the wound care center with Dr. Shannon in 1 week. (2) Other specified peripheral vascular diseases: CODE(S): I73.89 - Other specified peripheral vascular diseases
[2024-01-26 15:46] VITALS: BP 110/80; PULSE 59; RESP 18; TEMP 35.8; BMI 44.6
--- NOTE | 2024-01-26 16:06 | WC ---
Pt right posterior cald skin abrasion noted from adhesive tape
--- NOTE | 2024-01-26 17:36 | PN.PCM_ITS ---
History of Present Illness Date of Service: 01/26/24 Chief Complaint: Ulcerations of the right lateral calf with large areas of necrosis, and extension into muscle History of Wound: This is a 68-year-old morbidly obese diabetic male who presented with 3 large ulcerations on the right lateral calf. According to the patient, they had been present for approximately 6 weeks. The origin of the ulcerations is uncertain, though they may have resulted from a fall which the patient experienced while at home. The patient has multiple pre-existing medical problems, which have been listed below. He had recently been treated for blood loss anemia from a gastrointestinal source. He is a resident of [facility] in [place], [place]. He has a history of bilateral lower extremity deep vein thrombosis, and a venous duplex examination performed on October 22, 2023, revealed chronic changes in the right lower extremity deep venous system, with a normal superficial venous system. Management of the patient's wound had been by means of the [facility] [employer]cast Engineer, Dr. Reyna, from [place], [place]. Approximately 1 week prior to presentation, the patient underwent placement of a left upper extremity PICC catheter and has been receiving vancomycin and Zosyn intravenously. The patient had been on chronic systemic anticoagulation with Eliquis until recently, which was discontinued as a result of his recent gastrointestinal bleeding. The patient underwent laboratory studies recently, the results of which are as follows: Glucose 106, sodium 145, potassium 4.9, chloride 107, BUN 30, creatinine 1.3, calcium 9.0, white blood count 5.4, hemoglobin 10.0, hematocrit 32.3, platelets 141,000, sed rate 35, D-dimer 1.81, C-reactive protein 37.6. A chest x-ray on October 28, 2023, revealed no acute abnormalities. The patient is not active. He claims to sleep on a flat mattress at night. Progress of Wound: Mr. Alvarez is a 68-year-old diabetic male presenting to wound care center today for follow-up evaluation of full-thickness ulceration secondary to surgical intervention to the lateral aspect of the right lower extremity. Patient is currently residing in long term facility with [id number] care, he is getting wound VAC application every other day to the right lower extremity. He does admit to some bilateral swelling secondary to not having compression to his bilateral lower extremity. Otherwise the patient states of minimal to some pain with wound VAC changes otherwise he notices great improvement to the ulceration. Blood sugars well-controlled. Denies trauma. Denies constitutional symptoms. No other pedal complaints at this time. Subjective Subjective Mr. Alvarez is a 68-year-old male presenting to wound care center today for follow-up evaluation of full-thickness ulceration to the lateral aspect of the right leg. He has been getting wound VAC changes at the facility. Patient states great improvement to his wound. Denies trauma. Denies constitutional symptoms. No other pedal complaints at this time. Objective Data Objective Data Vital Signs: Vital Signs Temp Pulse Resp BP O2 Del Method 96.5 F L 59 L 18 110/80 Room Air 01/26/24 15:46 01/26/24 15:46 01/26/24 15:46 01/26/24 15:46 01/19/24 13:52 Oxygen Delivery Method Room Air Weight: 157.85 kg Body Mass Index (BMI) 44.6 Physical Exam Narrative Vascular: DP and PT pulses are palpable to the right lower extremity. Nonpitting edema appreciated to the right lower extremity. Skin temperature gradient is warm to warm from proximal ankles to distal digit. No focal increase appreciated. Neurological: Light touch intact. Patient response to painful stimuli. Protective sensation is diminished. Dermatological: Full-thickness ulceration to the lateral aspect of the right leg measuring 24.5 x 10.0 x 0.4 cm. Wound base is under percent granular nature with evidence of sanguinous drainage. No malodor or probe to bone. No sign of infection. Excisional debridement of the lateral right leg ulceration down to including subcutaneous tissue with a number 5 mm dermal curette without incident. Predebridement measurement is 24.3 x 9.9 x 0.3 cm. Postdebridement measurement is 24.5 x 10.0 x 0.4 cm. Musculoskeletal: Mild pain to palpation to all 3 full-thickness ulceration. No pain with calf pression. Debridement Note Debridement Note Debridement Free Text: Excisional debridement of the lateral right leg ulceration down to including subcutaneous tissue with a number 5 mm dermal curette without incident. Predebridement measurement is 24.3 x 9.9 x 0.3 cm. Postdebridement measurement is 24.5 x 10.0 x 0.4 cm. Post-Debridement Measurements and Additional Note: Post-Debridement Measurements/Treatment WC - Nurse 1 - General Ulcer Assessment Start: 01/19/24 13:51 Freq: Status: Active Protocol: GALE Activity Type Activity Date Activity User E-sign Co-sign Detail Recorded Client Recorded Date Recorded By Document 01/19/24 13:52 KW l 01/19/24 14:25 KW Document 01/26/24 15:46 KW ' 01/26/24 16:04 KW 01/19/24 01/26/24 13:52 15:46 WC - Today's Visit Information Type of service Follow-up Visit Follow-up Visit (Physician/MOTH PROOFER (Physician/MOTH PROOFER ) ) Arrival Mode Wheelchair Wheelchair Patient Identification Verified (Name & Yes Yes ) Height and Weight Body Mass Index (BMI) 44.6 44.6 BMI Classification Obese Obese Vital Signs Temperature (97.8 F-99.1 F) 96.5 F L 96.5 F L Temperature Source Temporal Temporal Pulse Rate (60-100) 56 L 59 L Pulse Location Monitor Monitor Respiratory Rate (12-18) 18 18 Respiratory rate source Observation Observation Oxygen Delivery Method Room Air Blood Pressure (90/60-120/80) 155/69 H 110/80 Blood Pressure Mean (mm Hg) 97 90 Source Monitor Monitor Position Semi-Fowlers Sitting Blood Pressure Location Left Forearm Left Arm History Since Last Visit- (Skip if this is Patient's initial visit) Have you changed medications since your No No last visit? Any new allergies or adverse reactions No No Had a fall/change in ADL's that may No No increase risk of falls Signs or symptoms of abuse and/or No No neglect since last visit Have you been in the hospital since your Yes No last visit? Has dressing in place as prescribed Yes Yes Has compression in place as prescribed No Yes Has offloadiing in place as prescribed Yes No Experienced any changes in pain level or No No management Left Footwear Regular Shoe Right Footwear Surgical Shoe with pressure relief insole Pain Scale: 0-10 Numeric Is Patient Pain Free? Yes No RLE -Description Sharp -Intensity 5 -Duration (hours) Acute -Pain Behavior Withdrawal from Touch,Facial Grimacing -Pain Aggravating Factors Exercise/ Activity, Debridement -Alleviating Factors/Interventions Medication -Effectiveness of Alleviating Factor/ Moderately Intervention effective - Nurse 1 - General Ulcer Measurement Start: 01/19/24 13:51 Freq: Status: Active Protocol: Activity Type Activity Date Activity User E-sign Co-sign Detail Recorded Client Recorded Date Recorded By Document 01/19/24 13:52 KW l 01/19/24 14:25 KW Document 01/26/24 15:46 KW ' 01/26/24 16:04 KW 01/19/24 01/26/24 13:52 15:46 Wound Center Nurse 1 #5 RT LAT LE POST-OP -Combined with other wound No -Current Size (cm) - Length 25.2 24.5 -Current Size (cm) - Width 13 10.3 -Current Size (cm) - Depth 1.5 1.3 -Total Square Cm 327.6 252.35 -Photo Taken Yes -Tunneling No -Undermining/Tunneling No -Circular Undermining No -Exudate Amt Large Large -Exudate Type Serosanguineous Serosanguineous -Wound Margin Distinct, Thickened & Outline Rolled Under Attached -Granulation Amt Large (67-100%) Large (67-100%) -Granulation Quality Red Red -Slough/Fibrin Yes -Necrosis Amt Medium (34-66%) -Necrotic Tissue Type Adherent Slough -Structure Exposed N/A -Texture (Mariza-wound Skin Appearance) Assessed Assessed -Moisture (Mariza-wound Skin Appearance) Assessed -Color (Mariza-wound Skin Appearance) Assessed, Hemosiderin Hemosiderin Staining Staining -Temperature (Mariza-wound Skin No Abnormality No Abnormality Appearance) (Pt Warm) (Pt Warm) -Tenderness on Palpation (Mariza-wound No No Skin Appearance) -Ulcer Cleansing Soap and Water Wound Cleanser -Foul Odor after Cleansing No No -Anesthetic Used 4% Lidocaine 4% Lidocaine Solution Solution Lower Limb Edema Present Yes Right Calf (cm) 42.5 Right Ankle (cm) 26 01/26/24 16:06 Wound Center by Geneva Savage Pt right posterior cald skin abrasion noted from adhesive tape Initialized on 01/26/24 16:06 - END OF NOTE WC - Nurse 2 - General Ulcer CM Notes Start: 01/19/24 13:51 Freq: Status: Active Protocol: Activity Type Activity Date Activity User E-sign Co-sign Detail Recorded Client Recorded Date Recorded By Document 01/19/24 14:41 JF 000 01/19/24 14:44 Document 01/26/24 16:20 [facility] 01/26/24 16:24 01/19/24 01/26/24 14:41 16:20 Wound Center Nurse 2 #5 RT LAT LE POST-OP -Time 14:41 16:20 -Correct Patient Yes Yes -Correct Side, Site, Position Yes Yes -Correct Procedure Yes Yes -Procedure Performed Yes Yes -Type of Procedure Debridement Debridement -Clinical Debridement Subcutaneous Subcutaneous -Tissue Removed Subcutaneous Subcutaneous -Post Debridement (cm) - Length 25 24.5 -Post Debridement (cm) - Width 12.2 10.0 -Post Debridement (cm) - Depth 0.4 0.4 -Total Square (Post) (cm) 305.0 245.00 -Area of Debridement (cm) - Length 25 24.5 -Area of Debridement (cm) - Width 12.2 10.0 -Total Square (Area) (cm) 305.0 245.00 -Tunneling No No -Undermining/Tunneling No No -Circular Undermining No No -Wound/Ulcer Outcome Not Healed Not Healed -Ulcer Cleansing Rinsed/ Rinsed/ Irrigated with Irrigated with Saline Saline -Foul Odor after Cleansing No No -Bioengineered Tissue No No -Bleeding Controlled with Pressure Pressure -Treatment Response Procedure Procedure Tolerated Well Tolerated Well -Offloading No -Debridement - Subq, 1st 20sq cm Yes Yes -Debridement, SubQ, ea addt'l 20sq cm 15 12 or part thereof Pain Scale: 0-10 Numeric Is Patient Pain Free? Yes Yes - Nurse 3 - General Ulcer D/C NN Start: 01/19/24 13:51 Freq: Status: Active Protocol: Activity Type Activity Date Activity User E-sign Co-sign Detail Recorded Client Recorded Date Recorded By Document 01/19/24 15:04 KW l 01/19/24 15:04 KW Document 01/26/24 16:45 KW ' 01/26/24 16:46 KW 01/19/24 01/26/24 15:04 16:45 Wound Care Center Nurse 3 #5 RT LAT LE POST-OP -Ulcer Cleansing Soap and Water -Foul Odor after Cleansing No -Negative Pressure Wound Therapy Continue -Setting (mmHg) 125 -Negative Pressure is Continuous -Other Dressing DAKINS SOAKED GAUZE -Primary Dressing Covered/Secured with Dry Gauze & Roll Gauze, Secured with Tape -Other Covering celso -NPWT Application Charge NPWT & Debridement (nc ) Right -Compression Wrap Celso Wrap Left -Compression Wrap Celso Wrap Pain Scale: 0-10 Numeric Is Patient Pain Free? Yes Yes WC - Visit Discharge Discharge Condition Stable Stable Ambulatory Status Wheelchair Wheelchair Transportation ecf trans Medication Reconcilliation completed & No provided to patient/care provider Clinical Summary of Care Provided Yes Notes: dressing applied per K Savage today. Facility Type Custodial Care Facility Orders Sent Yes Assessment/Plan Assessment/Plan (1) Non-pressure chronic ulcer of other part of right lower leg with fat layer exposed: CODE(S): L97.812 - Non-pressure chronic ulcer of other part of right lower leg with fat layer exposed PLAN: Patient was examined and evaluated. All findings were discussed with the patient. All questions were answered to the patient's satisfaction. Excisional debridement of the lateral right leg ulceration down to including subcutaneous tissue with a number 5 mm dermal curette without incident. Predebridement measurement is 24.3 x 9.9 x 0.3 cm. Postdebridement measurement is 24.5 x 10.0 x 0.4 cm. Right lower extremities were cleaned and patted dry. Wound VAC was applied to the right lower extremity per the inside plant supervisor's recommendation and set to continuous 125 mmHg. Compression wraps were donned to the bilateral lower extremity. Follow-up at the wound care center with Dr. Shannon in 1 week. (2) Other specified peripheral vascular diseases: CODE(S): I73.89 - Other specified peripheral vascular diseases
[2024-02-02 08:23] VITALS: BP 158/82; PULSE 67; RESP 18; BMI 44.6
--- NOTE | 2024-02-02 09:08 | PCM.WC.PN ---
History of Present Illness Date of Service: 02/02/24 Chief Complaint: Ulcerations of the right lateral calf with large areas of necrosis, and extension into muscle History of Wound: This is a 68-year-old morbidly obese diabetic male who presented with 3 large ulcerations on the right lateral calf. According to the patient, they had been present for approximately 6 weeks. The origin of the ulcerations is uncertain, though they may have resulted from a fall which the patient experienced while at home. The patient has multiple pre-existing medical problems, which have been listed below. He had recently been treated for blood loss anemia from a gastrointestinal source. He is a resident of [facility] in [place], [place]. He has a history of bilateral lower extremity deep vein thrombosis, and a venous duplex examination performed on October 22, 2023, revealed chronic changes in the right lower extremity deep venous system, with a normal superficial venous system. Management of the patient's wound had been by means of the [facility], Dr. Reyna, from [place], [place]. Approximately 1 week prior to presentation, the patient underwent placement of a left upper extremity PICC catheter and has been receiving vancomycin and Zosyn intravenously. The patient had been on chronic systemic anticoagulation with Eliquis until recently, which was discontinued as a result of his recent gastrointestinal bleeding. The patient underwent laboratory studies recently, the results of which are as follows: Glucose 106, sodium 145, potassium 4.9, chloride 107, BUN 30, creatinine 1.3, calcium 9.0, white blood count 5.4, hemoglobin 10.0, hematocrit 32.3, platelets 141,000, sed rate 35, D-dimer 1.81, C-reactive protein 37.6. A chest x-ray on October 28, 2023, revealed no acute abnormalities. The patient is not active. He claims to sleep on a flat mattress at night. Progress of Wound: Mr. Alvarez is a 68-year-old diabetic male presenting to wound care center today for follow-up evaluation of full-thickness ulceration secondary to surgical intervention to the lateral aspect of the right lower extremity. Patient is currently residing in correction facility with [id number] care, he is getting wound VAC application every other day to the right lower extremity. He does admit to some bilateral swelling secondary to not having compression to his bilateral lower extremity. Otherwise the patient states of minimal to some pain with wound VAC changes otherwise he notices great improvement to the ulceration. Blood sugars well-controlled. Denies trauma. Denies constitutional symptoms. No other pedal complaints at this time. Subjective Subjective Mr. Gutierrez is a 68-year-old diabetic male presenting to the wound care center today follow-up evaluation of full-thickness ulceration secondary to surgical intervention to the lateral aspect of right lower extremity. Patient has been compliant with the wound VAC. He has had his bilateral legs compressed per orders. He denies any drainage or sign of infection to the right lower extremity. Denies trauma. Denies constitutional symptoms. No other complaints at this time. Objective Data Objective Data Vital Signs: Vital Signs Temp Pulse Resp BP O2 Del Method 96.5 F L 67 18 158/82 H Room Air 01/26/24 15:46 02/02/24 08:23 02/02/24 08:23 02/02/24 08:23 02/02/24 08:23 Oxygen Delivery Method Room Air Weight: 157.85 kg Body Mass Index (BMI) 44.6 Physical Exam Narrative Vascular: DP and PT pulses are palpable to the right lower extremity. Nonpitting edema appreciated to the right lower extremity. Skin temperature gradient is warm to warm from proximal ankles to distal digit. No focal increase appreciated. Neurological: Light touch intact. Patient response to painful stimuli. Protective sensation is diminished. Dermatological: Full-thickness ulceration to the lateral aspect of the right leg measuring 24.5 x 10.3 x 0.3 cm. Wound base is under percent granular nature with evidence of sanguinous drainage. No malodor or probe to bone. No sign of infection. Excisional debridement of the lateral right leg ulceration down to including subcutaneous tissue with a number 5 mm dermal curette without incident. Predebridement measurement is 24.4 x 10. x 02 cm. Postdebridement measurement is 24.5 x 10.2 x 0.3 cm. Musculoskeletal: Mild pain to palpation to all 3 full-thickness ulceration. No pain with calf compression. Debridement Note Debridement Note Debridement Free Text: Excisional debridement of the lateral right leg ulceration down to including subcutaneous tissue with a number 5 mm dermal curette without incident. Predebridement measurement is 24.4 x 10. x 02 cm. Postdebridement measurement is 24.5 x 10.2 x 0.3 cm. Post-Debridement Measurements and Additional Note: Post-Debridement Measurements/Treatment - Nurse 1 - General Ulcer Assessment Start: 01/19/24 13:51 Freq: Status: Active Protocol: GALE Activity Type Activity Date Activity User E-sign Co-sign Detail Recorded Client Recorded Date Recorded By Document 01/19/24 13:52 KW l 01/19/24 14:25 KW Document 01/26/24 15:46 KW ' 01/26/24 16:04 KW Document 02/02/24 08:23 KW d 02/02/24 08:33 KW 01/19/24 01/26/24 02/02/24 13:52 15:46 08:23 WC - Today's Visit Information Type of service Follow-up Visit Follow-up Visit Follow-up Visit (Physician/ARCHITECTURAL SUPERINTENDENT (Physician/ARCHITECTURAL SUPERINTENDENT (Physician/ARCHITECTURAL SUPERINTENDENT ) ) ) Arrival Mode Wheelchair Wheelchair Wheelchair Patient Identification Verified (Name & Yes Yes Yes ) Height and Weight Body Mass Index (BMI) 44.6 44.6 44.6 BMI Classification Obese Obese Obese Vital Signs Temperature (97.8 F-99.1 F) 96.5 F L 96.5 F L Temperature Source Temporal Temporal Pulse Rate (60-100) 56 L 59 L 67 Pulse Location Monitor Monitor Monitor Respiratory Rate (12-18) 18 18 18 Respiratory rate source Observation Observation Observation Oxygen Delivery Method Room Air Room Air Blood Pressure (90/60-120/80) 155/69 H 110/80 158/82 H Blood Pressure Mean (mm Hg) 97 90 107 Source Monitor Monitor Monitor Position Semi-Fowlers Sitting Semi-Fowlers Blood Pressure Location Left Forearm Left Arm Right Arm History Since Last Visit- (Skip if this is Patient's initial visit) Have you changed medications since your No No No last visit? Any new allergies or adverse reactions No No No Had a fall/change in ADL's that may No No No increase risk of falls Signs or symptoms of abuse and/or No No No neglect since last visit Have you been in the hospital since your Yes No No last visit? Has dressing in place as prescribed Yes Yes Yes Has compression in place as prescribed No Yes Yes Has offloadiing in place as prescribed Yes No Yes Experienced any changes in pain level or No No No management Left Footwear Regular Shoe Regular Shoe Right Footwear Surgical Shoe Surgical Shoe with pressure with pressure relief insole relief insole Pain Scale: 0-10 Numeric Is Patient Pain Free? Yes No Yes RLE -Description Sharp -Intensity 5 -Duration (hours) Acute -Pain Behavior Withdrawal from Touch,Facial Grimacing -Pain Aggravating Factors Exercise/ Activity, Debridement -Alleviating Factors/Interventions Medication -Effectiveness of Alleviating Factor/ Moderately Intervention effective WC - Nurse 1 - General Ulcer Measurement Start: 01/19/24 13:51 Freq: Status: Active Protocol: Activity Type Activity Date Activity User E-sign Co-sign Detail Recorded Client Recorded Date Recorded By Document 01/19/24 13:52 KW l 01/19/24 14:25 KW Document 01/26/24 15:46 KW ' 01/26/24 16:04 KW Document 02/02/24 08:23 KW d 02/02/24 08:33 KW 01/19/24 01/26/24 02/02/24 13:52 15:46 08:23 Wound Center Nurse 1 #5 RT LAT LE POST-OP -Combined with other wound No -Current Size (cm) - Length 25.2 24.5 24 -Current Size (cm) - Width 13 10.3 9 -Current Size (cm) - Depth 1.5 1.3 0.5 -Total Square Cm 327.6 252.35 216 -Date of Last Picture (Recall this 02/02/24 field) -Photo Taken Yes -Tunneling No -Undermining/Tunneling No -Circular Undermining No -Exudate Amt Large Large Medium -Exudate Type Serosanguineous Serosanguineous Serosanguineous -Wound Margin Distinct, Thickened & Distinct, Outline Rolled Under Outline Attached Attached -Granulation Amt Large (67-100%) Large (67-100%) Large (67-100%) -Granulation Quality Red Red [place],Red -Slough/Fibrin Yes -Necrosis Amt Medium (34-66%) -Necrotic Tissue Type Adherent Slough -Structure Exposed N/A -Texture (Mariza-wound Skin Appearance) Assessed Assessed Assessed -Moisture (Mariza-wound Skin Appearance) Assessed Assessed -Color (Mariza-wound Skin Appearance) Assessed, Hemosiderin Assessed Hemosiderin Staining Staining -Temperature (Mariza-wound Skin No Abnormality No Abnormality No Abnormality Appearance) (Pt Warm) (Pt Warm) (Pt Warm) -Tenderness on Palpation (Mariza-wound No No No Skin Appearance) -Ulcer Cleansing Soap and Water Wound Cleanser Soap and Water -Foul Odor after Cleansing No No No -Anesthetic Used 4% Lidocaine 4% Lidocaine 4% Lidocaine Solution Solution Solution Lower Limb Edema Present Yes Right Calf (cm) 42.5 Right Ankle (cm) 26 01/26/24 16:06 Wound Center by Geneva Savage Pt right posterior cald skin abrasion noted from adhesive tape Initialized on 01/26/24 16:06 - END OF NOTE WC - Nurse 2 - General Ulcer CM Notes Start: 01/19/24 13:51 Freq: Status: Active Protocol: Activity Type Activity Date Activity User E-sign Co-sign Detail Recorded Client Recorded Date Recorded By Document 01/19/24 14:41 000 01/19/24 14:44 Document 01/26/24 16:20 GM 01/26/24 16:24 Document 02/02/24 08:44 JF 000 02/02/24 08:48 01/19/24 01/26/24 02/02/24 14:41 16:20 08:44 Wound Center Nurse 2 #5 RT LAT LE POST-OP -Time 14:41 16:20 08:44 -Correct Patient Yes Yes Yes -Correct Side, Site, Position Yes Yes Yes -Correct Procedure Yes Yes Yes -Procedure Performed Yes Yes Yes -Type of Procedure Debridement Debridement Debridement -Clinical Debridement Subcutaneous Subcutaneous Subcutaneous -Tissue Removed Subcutaneous Subcutaneous Subcutaneous -Post Debridement (cm) - Length 25 24.5 24.5 -Post Debridement (cm) - Width 12.2 10.0 10.2 -Post Debridement (cm) - Depth 0.4 0.4 0.3 -Total Square (Post) (cm) 305.0 245.00 249.90 -Area of Debridement (cm) - Length 25 24.5 24.5 -Area of Debridement (cm) - Width 12.2 10.0 10.2 -Total Square (Area) (cm) 305.0 245.00 249.90 -Tunneling No No No -Undermining/Tunneling No No No -Circular Undermining No No No -Wound/Ulcer Outcome Not Healed Not Healed Not Healed -Ulcer Cleansing Rinsed/ Rinsed/ Rinsed/ Irrigated with Irrigated with Irrigated with Saline Saline Saline -Foul Odor after Cleansing No No No -Bioengineered Tissue No No No -Bleeding Controlled with Pressure Pressure Pressure -Treatment Response Procedure Procedure Procedure Tolerated Well Tolerated Well Tolerated Well -Offloading No No -Debridement - Subq, 1st 20sq cm Yes Yes Yes -Debridement, SubQ, ea addt'l 20sq cm 15 12 12 or part thereof Pain Scale: 0-10 Numeric Is Patient Pain Free? Yes Yes Yes - Nurse 3 - General Ulcer D/C NN Start: 01/19/24 13:51 Freq: Status: Active Protocol: Activity Type Activity Date Activity User E-sign Co-sign Detail Recorded Client Recorded Date Recorded By Document 01/19/24 15:04 KW l 01/19/24 15:04 KW Document 01/26/24 16:45 KW ' 01/26/24 16:46 KW Document 02/02/24 08:54 KW d 02/02/24 08:56 KW 01/19/24 01/26/24 02/02/24 15:04 16:45 08:54 Wound Care Center Nurse 3 #5 RT LAT LE POST-OP -Ulcer Cleansing Soap and Water -Foul Odor after Cleansing No -Negative Pressure Wound Therapy Continue Continue -Setting (mmHg) 125 125 -Negative Pressure is Continuous Continuous -Other Dressing DAKINS SOAKED GAUZE -Primary Dressing Covered/Secured with Dry Gauze & Dry Gauze Roll Gauze, Secured with Tape -Other Covering celso -NPWT Application Charge NPWT & NPWT & Debridement (nc Debridement (nc ) ) Right -Compression Wrap Celso Wrap Celso Wrap Left -Compression Wrap Celso Wrap Celso Wrap Pain Scale: 0-10 Numeric Is Patient Pain Free? Yes Yes Yes - Visit Discharge Discharge Condition Stable Stable Stable Ambulatory Status Wheelchair Wheelchair Wheelchair Transportation ecf trans Medication Reconcilliation completed & No No provided to patient/care provider Clinical Summary of Care Provided Yes Yes Notes: dressing applied per K Savage today. Facility Type [facility] Orders Sent Yes Assessment/Plan Assessment/Plan (1) Non-pressure chronic ulcer of other part of right lower leg with fat layer exposed: CODE(S): L97.812 - Non-pressure chronic ulcer of other part of right lower leg with fat layer exposed PLAN: Patient was examined and evaluated. All findings were discussed with the patient. All questions were answered to the patient's satisfaction. Excisional debridement of the lateral right leg ulceration down to including subcutaneous tissue with a number 5 mm dermal curette without incident. Predebridement measurement is 24.4 x 10. x 02 cm. Postdebridement measurement is 24.5 x 10.2 x 0.3 cm. Wound VAC was applied to right lower extremity per the pmo project manager's recommendation. Will begin authorization either for skin graft substitutes versus TheraSkin to the right lower extremity. The patient will use the wound VAC for approximately 1 more week prior to applying Continue to compress the patient's bilateral lower extremity. Follow-up at the wound care center with Dr. Shannon in 1 week. (2) Other specified peripheral vascular diseases: CODE(S): I73.89 - Other specified peripheral vascular diseases
[2024-02-09 08:12] VITALS: BP 139/76; PULSE 74; RESP 16; TEMP 36.1; BMI 44.6
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
--- NOTE | 2024-02-09 11:10 | WC ---
PHOTO 02/02/24 RIGHT LATERAL LEG
--- NOTE | 2024-02-09 11:11 | WC ---
PHOTO 02/02/24 RIGHT LATERAL LE
--- NOTE | 2024-02-09 11:12 | WC ---
PHOTO 02/02/24 RIGHT LATERAL LE
--- NOTE | 2024-02-10 11:19 | WC ---
PHOTO 01/26/24 RIGHT LATERAL LEG
--- NOTE | 2024-02-11 09:32 | WC ---
PHOTO 02/09/24 RIGHT LE
== END 2024-02-09 23:59 | disposition home or self-care (01) ==
LOC: WC 08:00
PROVIDERS: Referring Provider Surgery; Visit Provider Podiatrist Foot & Ankle Surgery
DX: L97.812 Non-pressure chronic ulcer of other part of right lower leg with fat layer exposed (principal); L97.913 Non-pressure chronic ulcer of unspecified part of right lower leg with necrosis of muscle; E11.622 Type 2 diabetes mellitus with other skin ulcer; J44.9 Chronic obstructive pulmonary disease, unspecified; I48.91 Unspecified atrial fibrillation; E66.01 Morbid (severe) obesity due to excess calories; Z68.41 Body mass index [BMI] 40.0-44.9, adult; E11.42 Type 2 diabetes mellitus with diabetic polyneuropathy; Z87.891 Personal history of nicotine dependence; I73.89 Other specified peripheral vascular diseases; M79.89 Other specified soft tissue disorders; I38 Endocarditis, valve unspecified; N40.0 Benign prostatic hyperplasia without lower urinary tract symptoms; I87.2 Venous insufficiency (chronic) (peripheral); D50.0 Iron deficiency anemia secondary to blood loss (chronic); I10 Essential (primary) hypertension; K44.9 Diaphragmatic hernia without obstruction or gangrene; K57.90 Diverticulosis of intestine, part unspecified, without perforation or abscess without bleeding; R53.81 Other malaise; G47.33 Obstructive sleep apnea (adult) (pediatric); Z86.79 Personal history of other diseases of the circulatory system; R60.0 Localized edema; Z95.2 Presence of prosthetic heart valve; Z86.718 Personal history of other venous thrombosis and embolism
CPT/HCPCS: 11042; 11045

== ENCOUNTER 2024-03-08 08:15 | Outpatient (RCR) | payer MEDICARE, SELFPAY ==
[2024-02-10 00:20] VITALS: BP 167/86; PULSE 60; RESP 16; TEMP 36.2; BMI 44.6
[2024-02-16 08:11] VITALS: BP 160/83; PULSE 73; RESP 18; TEMP 35.6; BMI 44.6
[2024-02-16 09:16] VITALS: BMI 44.6
--- NOTE | 2024-02-16 11:49 | PCM.WC.PN ---
History of Present Illness Date of Service: 02/16/24 Chief Complaint: Ulcerations of the right lateral calf with large areas of necrosis, and extension into muscle History of Wound: This is a 68-year-old morbidly obese diabetic male who presented with 3 large ulcerations on the right lateral calf. According to the patient, they had been present for approximately 6 weeks. The origin of the ulcerations is uncertain, though they may have resulted from a fall which the patient experienced while at home. The patient has multiple pre-existing medical problems, which have been listed below. He had recently been treated for blood loss anemia from a gastrointestinal source. He is a resident of [facility] in [place], [place]. He has a history of bilateral lower extremity deep vein thrombosis, and a venous duplex examination performed on October 22, 2023, revealed chronic changes in the right lower extremity deep venous system, with a normal superficial venous system. Management of the patient's wound had been by means of the [facility] [employer], Dr. Reyna, from [place], [place]. Approximately 1 week prior to presentation, the patient underwent placement of a left upper extremity PICC catheter and has been receiving vancomycin and Zosyn intravenously. The patient had been on chronic systemic anticoagulation with Eliquis until recently, which was discontinued as a result of his recent gastrointestinal bleeding. The patient underwent laboratory studies recently, the results of which are as follows: Glucose 106, sodium 145, potassium 4.9, chloride 107, BUN 30, creatinine 1.3, calcium 9.0, white blood count 5.4, hemoglobin 10.0, hematocrit 32.3, platelets 141,000, sed rate 35, D-dimer 1.81, C-reactive protein 37.6. A chest x-ray on October 28, 2023, revealed no acute abnormalities. The patient is not active. He claims to sleep on a flat mattress at night. Subjective Subjective Mr. Gutierrez is a 68-year-old diabetic male presented with her son today for follow-up evaluation of full-thickness ulceration. Patient has been compliant with wound VAC as well as wound VAC changes. He now has been approved for TheraSkin applications to the right lower extremity. Patient is awaiting his urology consultation to have his catheter removed. [facility]. Denies trauma. Denies constitutional symptoms. No other complaints at this time. Objective Data Objective Data Vital Signs: Vital Signs Temp Pulse Resp BP O2 Del Method 96.0 F L 73 18 160/83 H Room Air 02/16/24 08:11 02/16/24 08:11 02/16/24 08:11 02/16/24 08:11 02/16/24 08:11 Oxygen Delivery Method Room Air Weight: 157.85 kg Body Mass Index (BMI) 44.6 Physical Exam Narrative Vascular: DP and PT pulses are palpable to the right lower extremity. Nonpitting edema appreciated to the right lower extremity. Skin temperature gradient is warm to warm from proximal ankles to distal digit. No focal increase appreciated. Neurological: Light touch intact. Patient response to painful stimuli. Protective sensation is diminished. Dermatological: Full-thickness ulceration to the lateral aspect of the right leg measuring 23.0. x 9.1 x 0.1 cm. Wound base is under percent granular nature with evidence of sanguinous drainage. No malodor or probe to bone. No sign of infection. Excisional debridement of the lateral right leg ulceration down to including subcutaneous tissue with a number 7 mm dermal curette without incident. Predebridement measurement is 22.8 x 9.0 x 0.1 cm. Postdebridement measurement is 23.0 x 9.1 x 0.1 cm. Theraskin skin 116 cm? graft was applied to the right leg full-thickness ulceration with 100% use. First application. The graft site was free and clear of any infection. The wound/skin graft substitute was dressed with nonadherent bandage secured in place with Dermabond and Steri-Strips followed by negative pressure wound VAC set to 75 mmHg with Celso bandage for compression donned to the right lower extremity. Musculoskeletal: Mild pain to palpation to full-thickness ulceration. No pain with calf compression. Debridement Note Debridement Note Debridement Free Text: Excisional debridement of the lateral right leg ulceration down to including subcutaneous tissue with a number 7 mm dermal curette without incident. Predebridement measurement is 22.8 x 9.0 x 0.1 cm. Postdebridement measurement is 23.0 x 9.1 x 0.1 cm. Theraskin skin 116 cm? graft was applied to the right leg full-thickness ulceration with 100% use. First application. The graft site was free and clear of any infection. The wound/skin graft substitute was dressed with nonadherent bandage secured in place with Dermabond and Steri-Strips followed by negative pressure wound VAC set to 75 mmHg with Celso bandage for compression donned to the right lower extremity. Post-Debridement Measurements and Additional Note: Post-Debridement Measurements/Treatment WC - Nurse 1 - General Ulcer Assessment Start: 02/16/24 08:11 Freq: Status: Active Protocol: GALE Activity Type Activity Date Activity User E-sign Co-sign Detail Recorded Client Recorded Date Recorded By Document 02/16/24 08:11 KW fcg 02/16/24 08:22 KW Document 02/16/24 09:16 JF 000 02/16/24 09:17 JF 02/16/24 02/16/24 08:11 09:16 - Today's Visit Information Type of service Follow-up Visit Follow-up Visit (Physician/TRUSS DRIVER HELPER (Physician/TRUSS DRIVER HELPER ) ) Arrival Mode Wheelchair Ambulatory, Wheelchair Patient Identification Verified (Name & Yes ) Height and Weight Body Mass Index (BMI) 44.6 44.6 BMI Classification Obese Obese Vital Signs Temperature (97.8 F-99.1 F) 96.0 F L Temperature Source Temporal Pulse Rate (60-100) 73 Pulse Location Monitor Respiratory Rate (12-18) 18 Respiratory rate source Observation Oxygen Delivery Method Room Air Blood Pressure (90/60-120/80) 160/83 H Blood Pressure Mean (mm Hg) 108 Source Monitor Position Semi-Fowlers Blood Pressure Location Right Forearm History Since Last Visit- (Skip if this is Patient's initial visit) Have you changed medications since your No last visit? Any new allergies or adverse reactions No Had a fall/change in ADL's that may No increase risk of falls Signs or symptoms of abuse and/or No neglect since last visit Have you been in the hospital since your No last visit? Has dressing in place as prescribed Yes Has compression in place as prescribed Yes Has offloadiing in place as prescribed N/A Experienced any changes in pain level or No management Left Footwear Regular Shoe Right Footwear Regular Shoe Pain Scale: 0-10 Numeric Is Patient Pain Free? No Yes sacrum -Description Sharp,Burning -Intensity 10 -Pain Behavior Facial Grimacing -Alleviating Factors/Interventions Medication, Turning/ Repositioning CODY - Nurse 1 - General Ulcer Measurement Start: 02/16/24 08:11 Freq: Status: Active Protocol: Activity Type Activity Date Activity User E-sign Co-sign Detail Recorded Client Recorded Date Recorded By Document 02/16/24 08:11 KW fcg 02/16/24 08:22 KW Document 02/16/24 09:16 JF 000 02/16/24 09:17 JF 02/16/24 02/16/24 08:11 09:16 Wound Center Nurse 1 6-right buttocks -Combined with other wound No -Current Size (cm) - Length 0.5 -Current Size (cm) - Width 1.0 -Current Size (cm) - Depth 0.2 -Total Square Cm 0.50 -Photo Taken No -Epithelialization Small 1-33% -Tunneling No -Undermining/Tunneling No -Circular Undermining No -Classification - Pressure Ulcer Stage 2 -Wound Margin Flat & Intact -Granulation Amt Medium (34-66%) -Granulation Quality Red -Slough/Fibrin Yes -Necrosis Amt Small (1-33%) -Necrotic Tissue Type Adherent Slough -Structure Exposed N/A -Texture (Mariza-wound Skin Appearance) Assessed, Excoriation -Moisture (Mariza-wound Skin Appearance) Assessed,Dry/ Scaly -Color (Mariza-wound Skin Appearance) Assessed -Temperature (Mariza-wound Skin No Abnormality Appearance) (Pt Warm) -Tenderness on Palpation (Mariza-wound No Skin Appearance) -Ulcer Cleansing Wound Cleanser -Foul Odor after Cleansing No -Anesthetic Used 5% Lidocaine Gel #5 RT LAT LE POST-OP -Current Size (cm) - Length 23.3 -Current Size (cm) - Width 9 -Current Size (cm) - Depth 0.2 -Total Square Cm 209.7 -Exudate Amt Medium -Exudate Type Serosanguineous -Wound Margin Distinct, Outline Attached -Granulation Amt Large (67-100%) -Granulation Quality Red -Texture (Mariza-wound Skin Appearance) Assessed -Moisture (Mariza-wound Skin Appearance) Assessed -Color (Mariza-wound Skin Appearance) Assessed, Hemosiderin Staining -Temperature (Mariza-wound Skin No Abnormality Appearance) (Pt Warm) -Tenderness on Palpation (Mariza-wound No Skin Appearance) -Ulcer Cleansing Soap and Water -Foul Odor after Cleansing No -Anesthetic Used 4% Lidocaine Solution WC - Nurse 2 - General Ulcer CM Notes Start: 02/16/24 08:11 Freq: Status: Active Protocol: Activity Type Activity Date Activity User E-sign Co-sign Detail Recorded Client Recorded Date Recorded By Document 02/16/24 08:58 JF 000 02/16/24 09:04 JF 02/16/24 08:58 Wound Center Nurse 2 #5 RT LAT LE POST-OP -Time 08:58 -Correct Patient Yes -Correct Side, Site, Position Yes -Correct Procedure Yes -Procedure Performed Yes -Type of Procedure Debridement -Clinical Debridement Subcutaneous -Tissue Removed Subcutaneous -Post Debridement (cm) - Length 23 -Post Debridement (cm) - Width 9.1 -Post Debridement (cm) - Depth 0.1 -Total Square (Post) (cm) 209.3 -Area of Debridement (cm) - Length 23.0 -Area of Debridement (cm) - Width 9.1 -Total Square (Area) (cm) 209.30 -Tunneling No -Undermining/Tunneling No -Circular Undermining No -Wound/Ulcer Outcome Not Healed -Ulcer Cleansing Rinsed/ Irrigated with Saline -Foul Odor after Cleansing No -Bioengineered Tissue Yes -Type of Bioengineered Tissue Theraskin -Expiration Date 04/11/27 -Product Lot Number [id number] -Percent Used 100 -Lot number of Saline Used [id number] -Bleeding Controlled with Pressure -Treatment Response Procedure Tolerated Well -Offloading No -Debridement - Subq, 1st 20sq cm No -Apply Skin Sub - 1st 100 sq cm - Legs 1 -Apply Skin Sub - each addt'l 100 sq 1 cm - Legs -Theraskin - 103TSXL (116 SQ CM) (per 116 sq cm) Pain Scale: 0-10 Numeric Is Patient Pain Free? Yes WC - Nurse 3 - General Ulcer D/C NN Start: 02/16/24 08:11 Freq: Status: Active Protocol: Activity Type Activity Date Activity User E-sign Co-sign Detail Recorded Client Recorded Date Recorded By Document 02/16/24 10:14 KW fcg 02/16/24 10:15 KW 02/16/24 10:14 Wound Care Center Nurse 3 6-right buttocks -Ulcer Cleansing Soap and Water -Other Dressing barrier ointment -Primary Dressing Covered/Secured with Dry Gauze, Secured with Tape #5 RT LAT LE POST-OP -Negative Pressure Wound Therapy Continue -Setting (mmHg) 75 -Negative Pressure is Continuous -NPWT Application Charge NPWT & Debridement (nc ) Right -Compression Wrap Celso Wrap Pain Scale: 0-10 Numeric Is Patient Pain Free? No sacrum -Description Sharp,Burning -Intensity 10 -Alleviating Factors/Interventions Turning/ Repositioning WC - Visit Discharge Discharge Condition Stable Ambulatory Status Wheelchair Assessment/Plan Assessment/Plan (1) Non-pressure chronic ulcer of other part of right lower leg with fat layer exposed: CODE(S): L97.812 - Non-pressure chronic ulcer of other part of right lower leg with fat layer exposed PLAN: Patient was examined and evaluated. All findings were discussed with the patient. All questions were answered to the patient's satisfaction. Excisional debridement of the lateral right leg ulceration down to including subcutaneous tissue with a number 7 mm dermal curette without incident. Predebridement measurement is 22.8 x 9.0 x 0.1 cm. Postdebridement measurement is 23.0 x 9.1 x 0.1 cm. Theraskin skin 116 cm? graft was applied to the right leg full-thickness ulceration with 100% use. First application. The graft site was free and clear of any infection. The wound/skin graft substitute was dressed with nonadherent bandage secured in place with Dermabond and Steri-Strips followed by negative pressure wound VAC set to 75 mmHg with Celso bandage for compression donned to the right lower extremity. Follow-up at the wound care center with Dr. Shannon in 1 week. (2) Other specified peripheral vascular diseases: CODE(S): I73.89 - Other specified peripheral vascular diseases
[2024-02-23 15:52] VITALS: BP 143/69; PULSE 65; RESP 18; TEMP 36.1; BMI 44.6
--- NOTE | 2024-02-23 17:24 | PN.PCM_ITS ---
History of Present Illness Date of Service: 02/23/24 Chief Complaint: Ulcerations of the right lateral calf with large areas of necrosis, and extension into muscle History of Wound: This is a 68-year-old morbidly obese diabetic male who presented with 3 large ulcerations on the right lateral calf. According to the patient, they had been present for approximately 6 weeks. The origin of the ulcerations is uncertain, though they may have resulted from a fall which the patient experienced while at home. The patient has multiple pre-existing medical problems, which have been listed below. He had recently been treated for blood loss anemia from a gastrointestinal source. He is a resident of [facility] in [place], [place]. He has a history of bilateral lower extremity deep vein thrombosis, and a venous duplex examination performed on October 22, 2023, revealed chronic changes in the right lower extremity deep venous system, with a normal superficial venous system. Management of the patient's wound had [facility], Dr. Reyna, from [place], [place]. Approximately 1 week prior to presentation, the patient underwent placement of a left upper extremity PICC catheter and has been receiving vancomycin and Zosyn intravenously. The patient had been on chronic systemic anticoagulation with Eliquis until recently, which was discontinued as a result of his recent gastrointestinal bleeding. The patient underwent laboratory studies recently, the results of which are as follows: Glucose 106, sodium 145, potassium 4.9, chloride 107, BUN 30, creatinine 1.3, calcium 9.0, white blood count 5.4, hemoglobin 10.0, hematocrit 32.3, platelets 141,000, sed rate 35, D-dimer 1.81, C-reactive protein 37.6. A chest x-ray on October 28, 2023, revealed no acute abnormalities. The patient is not active. He claims to sleep on a flat mattress at night. Subjective Subjective Mr. Alvarez is a 68-year-old diabetic male presenting to wound care center today for follow-up evaluation of full-thickness wound with TheraSkin skin graft application and application of negative pressure wound VAC to the right lower extremity. Patient also complains of a new pressure sore to the left heel due to his bed being too short at the group home facility. Patient did see his urologist and will not be removing the catheter secondary to prostate size and bladder spasming. The patient. Patient is very frustrated with the situation like to go home as soon as possible. He has been compliant with his dressing changes. He will continue to work with PT and OT. He denies trauma. Denies constitutional symptoms. No other pedal complaints at this time. Objective Data Objective Data Vital Signs: Vital Signs Temp Pulse Resp BP O2 Del Method 97.0 F L 65 18 143/69 H Room Air 02/23/24 15:52 02/23/24 15:52 02/23/24 15:52 02/23/24 15:52 02/23/24 15:52 Oxygen Delivery Method Room Air Weight: 157.85 kg Body Mass Index (BMI) 44.6 Physical Exam Narrative Vascular: DP and PT pulses are palpable to the right lower extremity. Nonpitting edema appreciated to the right lower extremity. Skin temperature gradient is warm to warm from proximal ankles to distal digit. No focal increase appreciated. Neurological: Light touch intact. Patient response to painful stimuli. Protective sensation is diminished. Dermatological: Full-thickness ulceration to the lateral aspect of the right leg measuring 22.5 x 8.8 x 0.1 cm. Wound base is under percent granular nature with evidence of sanguinous drainage. No malodor or probe to bone. No sign of infection. Evidence of stage I pressure sore appreciated to the left heel. No sign of infection. Excisional debridement of the lateral right leg ulceration down to including subcutaneous tissue with a number 7 mm dermal curette without incident. Predebridement measurement is 22.3 x 8.6 x 0.1 cm. Postdebridement measurement is 22.5 x 8.8 x 0.1 cm. Theraskin skin 116 cm? graft was applied to the right leg full-thickness ulceration with 100% use. Second application. The graft site was free and clear of any infection. The wound/skin graft substitute was dressed with nonadherent bandage secured in place with Dermabond and Steri-Strips followed by Bolster dressing and compression bandages to the right lower extremity. Musculoskeletal: Mild pain to palpation to full-thickness ulceration. No pain with calf compression. Debridement Note Debridement Note Debridement Free Text: Excisional debridement of the lateral right leg ul ceration down to including subcutaneous tissue with a number 7 mm dermal curette without incident. Predebridement measurement is 22.3 x 8.6 x 0.1 cm. Postdebridement measurement is 22.5 x 8.8 x 0.1 cm. Theraskin skin 116 cm? graft was applied to the right leg full-thickness ulceration with 100% use. Second application. The graft site was free and clear of any infection. The wound/skin graft substitute was dressed with nonadherent bandage secured in place with Dermabond and Steri-Strips followed by Bolster dressing and compression bandages to the right lower extremity. Post-Debridement Measurements and Additional Note: Post-Debridement Measurements/Treatment - Nurse 1 - General Ulcer Assessment Start: 02/16/24 08:11 Freq: Status: Active Protocol: CODY.[email or web address] Activity Type Activity Date Activity User E-sign Co-sign Detail Recorded Client Recorded Date Recorded By Document 02/16/24 08:11 KW fcg 02/16/24 08:22 KW Document 02/16/24 09:16 JF 000 02/16/24 09:17 JF Document 02/23/24 15:52 [id number] 02/23/24 16:01 CO 02/16/24 02/16/24 02/23/24 08:11 09:16 15:52 - Today's Visit Information Type of service Follow-up Visit Follow-up Visit Follow-up Visit (Physician/HEMATOLOGY ONCOLOGY CONSULTANT (Physician/HEMATOLOGY ONCOLOGY CONSULTANT (Physician/HEMATOLOGY ONCOLOGY CONSULTANT ) ) ) Arrival Mode Wheelchair Ambulatory, Ambulatory Wheelchair Patient Identification Verified (Name & Yes Yes ) Patient Requires Transmission-Based No Precautions Height and Weight Body Mass Index (BMI) 44.6 44.6 44.6 BMI Classification Obese Obese Obese Vital Signs Temperature (97.8 F-99.1 F) 96.0 F L 97.0 F L Temperature Source Temporal Temporal Pulse Rate (60-100) 73 65 Pulse Location Monitor Monitor Respiratory Rate (12-18) 18 18 Respiratory rate source Observation Ventilator Oxygen Delivery Method Room Air Room Air Blood Pressure (90/60-120/80) 160/83 H 143/69 H Blood Pressure Mean (mm Hg) 108 93 Source Monitor Monitor Position Semi-Fowlers Sitting Blood Pressure Location Right Forearm Right Arm History Since Last Visit- (Skip if this is Patient's initial visit) Have you changed medications since your No No last visit? Any new allergies or adverse reactions No No Had a fall/change in ADL's that may No No increase risk of falls Signs or symptoms of abuse and/or No No neglect since last visit Have you been in the hospital since your No No last visit? Has dressing in place as prescribed Yes Yes Has compression in place as prescribed Yes Yes Has offloadiing in place as prescribed N/A Yes Experienced any changes in pain level or No No management Left Footwear Regular Shoe Regular Shoe Right Footwear Regular Shoe Regular Shoe Pain Scale: 0-10 Numeric Is Patient Pain Free? No Yes Yes sacrum -Description Sharp,Burning -Intensity 10 -Pain Behavior Facial Grimacing -Alleviating Factors/Interventions Medication, Turning/ Repositioning WC - Nurse 1 - General Ulcer Measurement Start: 02/16/24 08:11 Freq: Status: Active Protocol: Activity Type Activity Date Activity User E-sign Co-sign Detail Recorded Client Recorded Date Recorded By Document 02/16/24 08:11 KW fcg 02/16/24 08:22 KW Document 02/16/24 09:16 JF 000 02/16/24 09:17 JF Document 02/23/24 15:52 [id number] 02/23/24 16:01 CO 02/16/24 02/16/24 02/23/24 08:11 09:16 15:52 Wound Center Nurse 1 6-right buttocks -Combined with other wound No -Current Size (cm) - Length 0.5 -Current Size (cm) - Width 1.0 -Current Size (cm) - Depth 0.2 -Total Square Cm 0.50 -Photo Taken No -Epithelialization Small 1-33% -Tunneling No -Undermining/Tunneling No -Circular Undermining No -Classification - Pressure Ulcer Stage 2 -Wound Margin Flat & Intact -Granulation Amt Medium (34-66%) -Granulation Quality Red -Slough/Fibrin Yes -Necrosis Amt Small (1-33%) -Necrotic Tissue Type Adherent Slough -Structure Exposed N/A -Texture (Mariza-wound Skin Appearance) Assessed, Excoriation -Moisture (Mariza-wound Skin Appearance) Assessed,Dry/ Scaly -Color (Mariza-wound Skin Appearance) Assessed -Temperature (Mariza-wound Skin No Abnormality Appearance) (Pt Warm) -Tenderness on Palpation (Mariza-wound No Skin Appearance) -Ulcer Cleansing Wound Cleanser -Foul Odor after Cleansing No -Anesthetic Used 5% Lidocaine Gel #5 RT LAT LE POST-OP -Current Size (cm) - Length 23.3 22.5 -Current Size (cm) - Width 9 8.5 -Current Size (cm) - Depth 0.2 0.1 -Total Square Cm 209.7 191.25 -Photo Taken No -Epithelialization None Present -Tunneling No -Undermining/Tunneling No -Circular Undermining No -Exudate Amt Medium Medium -Exudate Type Serosanguineous Serosanguineous -Wound Margin Distinct, Distinct, Outline Outline Attached Attached -Granulation Amt Large (67-100%) Large (67-100%) -Granulation Quality Red Red -Slough/Fibrin No -Texture (Mariza-wound Skin Appearance) Assessed Assessed -Moisture (Mariza-wound Skin Appearance) Assessed Assessed -Color (Mariza-wound Skin Appearance) Assessed, Assessed Hemosiderin Staining -Temperature (Mariza-wound Skin No Abnormality No Abnormality Appearance) (Pt Warm) (Pt Warm) -Tenderness on Palpation (Mariza-wound No Skin Appearance) -Ulcer Cleansing Soap and Water Soap and Water -Foul Odor after Cleansing No No -Anesthetic Used 4% Lidocaine 4% Lidocaine Solution Solution WC - Nurse 2 - General Ulcer CM Notes Start: 02/16/24 08:11 Freq: Status: Active Protocol: Activity Type Activity Date Activity User E-sign Co-sign Detail Recorded Client Recorded Date Recorded By Document 02/16/24 08:58 JF 000 02/16/24 09:04 JF Document 02/23/24 16:20 JF 0000 02/23/24 16:22 02/16/24 02/23/24 08:58 16:20 Wound Center Nurse 2 6-right buttocks -Correct Patient No -Correct Side, Site, Position No -Correct Procedure No -Procedure Performed No -Wound/Ulcer Outcome Not Healed #5 RT LAT LE POST-OP -Time 08:58 16:20 -Correct Patient Yes Yes -Correct Side, Site, Position Yes Yes -Correct Procedure Yes Yes -Procedure Performed Yes Yes -Type of Procedure Debridement Debridement -Clinical Debridement Subcutaneous Subcutaneous -Tissue Removed Subcutaneous Subcutaneous -Post Debridement (cm) - Length 23 22.5 -Post Debridement (cm) - Width 9.1 8.8 -Post Debridement (cm) - Depth 0.1 0.1 -Total Square (Post) (cm) 209.3 198.00 -Area of Debridement (cm) - Length 23.0 22.5 -Area of Debridement (cm) - Width 9.1 8.8 -Total Square (Area) (cm) 209.30 198.00 -Tunneling No No -Undermining/Tunneling No No -Circular Undermining No No -Wound/Ulcer Outcome Not Healed Not Healed -Ulcer Cleansing Rinsed/ Rinsed/ Irrigated with Irrigated with Saline Saline -Foul Odor after Cleansing No No -Bioengineered Tissue Yes Yes -Type of Bioengineered Tissue Theraskin Theraskin -Expiration Date 04/11/27 09/29/28 -Product Lot Number [id number] -Percent Used 100 100 -Lot number of Saline Used [id number] -Bleeding Controlled with Pressure Pressure -Treatment Response Procedure Procedure Tolerated Well Tolerated Well -Offloading No No -Debridement - Subq, 1st 20sq cm No No -Apply Skin Sub - 1st 100 sq cm - Legs 1 1 -Apply Skin Sub - each addt'l 100 sq 1 1 cm - Legs -Theraskin - 103TSXL (116 SQ CM) (per 116 116 sq cm) Pain Scale: 0-10 Numeric Is Patient Pain Free? Yes Yes WC - Nurse 3 - General Ulcer D/C NN Start: 02/16/24 08:11 Freq: Status: Active Protocol: Activity Type Activity Date Activity User E-sign Co-sign Detail Recorded Client Recorded Date Recorded By Document 02/16/24 10:14 KW fcg 02/16/24 10:15 KW Document 02/23/24 16:50 CP 02/23/24 16:51 CP 02/16/24 02/23/24 10:14 16:50 Wound Care Center Nurse 3 6-right buttocks -Ulcer Cleansing Soap and Water -Other Dressing barrier ointment -Primary Dressing Covered/Secured with Dry Gauze, Secured with Tape #5 RT LAT LE POST-OP -Negative Pressure Wound Therapy Continue -Setting (mmHg) 75 -Negative Pressure is Continuous -Other Dressing abd -Primary Dressing Covered/Secured with Dry Gauze & Roll Gauze, Secured with Tape -NPWT Application Charge NPWT & Debridement (nc ) Right -Compression Wrap Celso Wrap BLE -Compression Wrap Celso Wrap Treatment Response Procedure Tolerated Well Pain Scale: 0-10 Numeric Is Patient Pain Free? No Yes sacrum -Description Sharp,Burning -Intensity 10 -Alleviating Factors/Interventions Turning/ Repositioning WC - Visit Discharge Discharge Condition Stable Stable Ambulatory Status Wheelchair Wheelchair Transportation Private Auto Clinical Summary of Care Provided Yes Facility Type Monitor Car Operator Care Facility Orders Sent Yes Assessment/Plan Assessment/Plan (1) Non-pressure chronic ulcer of other part of right lower leg with fat layer exposed: CODE(S): L97.812 - Non-pressure chronic ulcer of other part of right lower leg with fat layer exposed PLAN: Patient was examined and evaluated. All findings were discussed with the patient. All questions were answered to the patient's satisfaction. Excisional debridement of the lateral right leg ulceration down to including subcutaneous tissue with a number 7 mm dermal curette without incident. Predebridement measurement is 22.3 x 8.6 x 0.1 cm. Postdebridement measurement is 22.5 x 8.8 x 0.1 cm. Theraskin skin 116 cm? graft was applied to the right leg full-thickness ulceration with 100% use. Second application. The graft site was free and clear of any infection. The wound/skin graft substitute was dressed with nonadherent bandage secured in place with Dermabond and Steri-Strips followed by Bolster dressing and compression bandages to the right lower extremity. The left heel is stage I at this time. Educated the patient to continue to offload his bilateral heels. A call was also made out to the nurse at the nursing facility and educated them to get the patient a bariatric bed with leg mental health social worker so that he can be comfortable while resting and healing his right leg wound. Long discussed with the patient regarding going home and I did discuss with the patient that he will need to optimize himself and be efficient in taking care of himself if he is to return home which she is understanding of. Patient will work with physical therapy and Occupational Therapy to continue to improve his daily living activity regiment. Follow-up at the wound care center with Dr. Shannon in 1 week. (2) Contusion of left heel: CODE(S): S90.32XA - Contusion of left foot, initial encounter QUALIFIERS: Encounter type: initial encounter Qualified Code(s): S90.32XA - Contusion of left foot, initial encounter (3) Other specified peripheral vascular diseases: CODE(S): I73.89 - Other specified peripheral vascular diseases
[2024-03-08 08:15] VITALS: BP 125/74; PULSE 74; RESP 18; TEMP 36.1; BMI 44.6
--- NOTE | 2024-03-08 10:53 | PN.PCM_ITS ---
History of Present Illness Date of Service: 03/08/24 Chief Complaint: Ulcerations of the right lateral calf with large areas of necrosis, and extension into muscle History of Wound: This is a 68-year-old morbidly obese diabetic male who presented with 3 large ulcerations on the right lateral calf. According to the patient, they had been present for approximately 6 weeks. The origin of the ulcerations is uncertain, though they may have resulted from a fall which the patient experienced while at home. The patient has multiple pre-existing medical problems, which have been listed below. He had recently been treated for blood loss anemia from a gastrointestinal source. He is a resident of [facility] in [place], [place]. He has a history of bilateral lower extremity deep vein thrombosis, and a venous duplex examination performed on October 22, 2023, revealed chronic changes in the right lower extremity deep venous system, with a normal superficial venous system. Management of the patient's wound had been by means of [facility], Dr. Reyna, from [place], [place]. Approximately 1 week prior to presentation, the patient underwent placement of a left upper extremity PICC catheter and has been receiving vancomycin and Zosyn intravenously. The patient had been on chronic systemic anticoagulation with Eliquis until recently, which was discontinued as a result of his recent gastrointestinal bleeding. The patient underwent laboratory studies recently, the results of which are as follows: Glucose 106, sodium 145, potassium 4.9, chloride 107, BUN 30, creatinine 1.3, calcium 9.0, white blood count 5.4, hemoglobin 10.0, hematocrit 32.3, platelets 141,000, sed rate 35, D-dimer 1.81, C-reactive protein 37.6. A chest x-ray on October 28, 2023, revealed no acute abnormalities. The patient is not active. He claims to sleep on a flat mattress at night. Subjective Subjective Mr. Gutierrez is a 68-year-old male presented wound care center today for follow- up evaluation of full-thickness wound and graft application to the right lateral leg. Patient missed his last appointment secondary to transportation issues. He thinks the wound is infected. He denies trauma. Denies constitutional s ymptoms. Other pain complaints at this time. Objective Data Objective Data Vital Signs: Vital Signs Temp Pulse Resp BP O2 Del Method 97 F L 74 18 125/74 H Room Air 03/08/24 08:15 03/08/24 08:15 03/08/24 08:15 03/08/24 08:15 02/23/24 15:52 Oxygen Delivery Method Room Air Weight: 157.85 kg Body Mass Index (BMI) 44.6 Physical Exam Narrative Vascular: DP and PT pulses are palpable to the right lower extremity. Nonpitting edema appreciated to the right lower extremity. Skin temperature gradient is warm to warm from proximal ankles to distal digit. No focal increase appreciated. Neurological: Light touch intact. Patient response to painful stimuli. Protective sensation is diminished. Dermatological: Full-thickness ulceration to the lateral aspect of the right leg measuring 22.0 x 7.2 x 0.1 cm. Wound base is under percent granular nature with evidence of sanguinous drainage. No malodor or probe to bone. No sign of infection. Evidence of stage I pressure sore appreciated to the left heel, stable no SOI No sign of infection. Excisional debridement of the lateral right leg ulceration down to including subcutaneous tissue with a number 7 mm dermal curette without incident. Predebridement measurement is 22.0 x 7.0 x 0.1 cm. Postdebridement measurement is 22.0 x 7.2 x 0.1 cm. Theraskin skin 116 cm? graft was applied to the right leg full-thickness ul ceration with 100% use. Third application. The graft site was free and clear of any infection. The wound/skin graft substitute was dressed with nonadherent bandage secured in place with Dermabond and Steri-Strips followed by Bolster dressing and compression bandages to the right lower extremity. Musculoskeletal: Mild pain to palpation to full-thickness ulceration. No pain with calf compression. Debridement Note Debridement Note Debridement Free Text: Excisional debridement of the lateral right leg ulce ration down to including subcutaneous tissue with a number 7 mm dermal curette without incident. Predebridement measurement is 22.0 x 7.0 x 0.1 cm. Postdebridement measurement is 22.0 x 7.2 x 0.1 cm. Theraskin skin 116 cm? graft was applied to the right leg full-thickness ulceration with 100% use. Third application. The graft site was free and clear of any infection. The wound/skin graft substitute was dressed with nonadherent bandage secured in place with Dermabond and Steri-Strips followed by Bolster dressing and compression bandages to the right lower extremity. Post-Debridement Measurements and Additional Note: Post-Debridement Measurements/Treatment WC - Nurse 1 - General Ulcer Assessment Start: 02/16/24 08:11 Freq: Status: Active Protocol: GALE Activity Type Activity Date Activity User E-sign Co-sign Detail Recorded Client Recorded Date Recorded By Document 02/16/24 08:11 KW fcg 02/16/24 08:22 KW Document 02/16/24 09:16 JF 000 02/16/24 09:17 JF Document 02/23/24 15:52 MT [id number] 02/23/24 16:01 MT Document 03/08/24 08:15 MT [id number] 03/08/24 08:33 MT 02/16/24 02/16/24 02/23/24 08:11 09:16 15:52 - Today's Visit Information Type of service Follow-up Visit Follow-up Visit Follow-up Visit (Physician/BUSINESS IMPROVEMENT MANAGER (Physician/BUSINESS IMPROVEMENT MANAGER (Physician/BUSINESS IMPROVEMENT MANAGER ) ) ) Arrival Mode Wheelchair Ambulatory, Ambulatory Wheelchair Patient Identification Verified (Name & Yes Yes ) Patient Requires Transmission-Based No Precautions Height and Weight Body Mass Index (BMI) 44.6 44.6 44.6 BMI Classification Obese Obese Obese Vital Signs Temperature (97.8 F-99.1 F) 96.0 F L 97.0 F L Temperature Source Temporal Temporal Pulse Rate (60-100) 73 65 Pulse Location Monitor Monitor Respiratory Rate (12-18) 18 18 Respiratory rate source Observation Ventilator Oxygen Delivery Method Room Air Room Air Blood Pressure (90/60-120/80) 160/83 H 143/69 H Blood Pressure Mean (mm Hg) 108 93 Source Monitor Monitor Position Semi-Fowlers Sitting Blood Pressure Location Right Forearm Right Arm History Since Last Visit- (Skip if this is Patient's initial visit) Have you changed medications since your No No last visit? Any new allergies or adverse reactions No No Had a fall/change in ADL's that may No No increase risk of falls Signs or symptoms of abuse and/or No No neglect since last visit Have you been in the hospital since your No No last visit? Has dressing in place as prescribed Yes Yes Has compression in place as prescribed Yes Yes Has offloadiing in place as prescribed N/A Yes Experienced any changes in pain level or No No management Left Footwear Regular Shoe Regular Shoe Right Footwear Regular Shoe Regular Shoe Pain Scale: 0-10 Numeric Is Patient Pain Free? No Yes Yes sacrum -Description Sharp,Burning -Intensity 10 -Pain Behavior Facial Grimacing -Alleviating Factors/Interventions Medication, Turning/ Repositioning 03/08/24 08:15 WC - Today's Visit Information Type of service Arrival Mode Patient Identification Verified (Name & ) Patient Requires Transmission-Based Precautions Height and Weight Body Mass Index (BMI) 44.6 BMI Classification Obese Vital Signs Temperature (97.8 F-99.1 F) 97 F L Temperature Source Temporal Pulse Rate (60-100) 74 Pulse Location Monitor Respiratory Rate (12-18) 18 Respiratory rate source Ausculation Oxygen Delivery Method Blood Pressure (90/60-120/80) 125/74 H Blood Pressure Mean (mm Hg) 91 Source Monitor Position Sitting Blood Pressure Location Right Arm History Since Last Visit- (Skip if this is Patient's initial visit) Have you changed medications since your last visit? Any new allergies or adverse reactions Had a fall/change in ADL's that may increase risk of falls Signs or symptoms of abuse and/or neglect since last visit Have you been in the hospital since your last visit? Has dressing in place as prescribed Has compression in place as prescribed Has offloadiing in place as prescribed Experienced any changes in pain level or management Left Footwear Right Footwear Pain Scale: 0-10 Numeric Is Patient Pain Free? Yes sacrum -Description -Intensity -Pain Behavior -Alleviating Factors/Interventions - Nurse 1 - General Ulcer Measurement Start: 02/16/24 08:11 Freq: Status: Active Protocol: Activity Type Activity Date Activity User E-sign Co-sign Detail Recorded Client Recorded Date Recorded By Document 02/16/24 08:11 KW fcg 02/16/24 08:22 KW Document 02/16/24 09:16 JF 000 02/16/24 09:17 JF Document 02/23/24 15:52 MT [id number] 02/23/24 16:01 MT Document 03/08/24 08:15 MT [id number] 03/08/24 08:33 MT 02/16/24 02/16/24 02/23/24 08:11 09:16 15:52 Wound Center Nurse 1 6-right buttocks -Combined with other wound No -Current Size (cm) - Length 0.5 -Current Size (cm) - Width 1.0 -Current Size (cm) - Depth 0.2 -Total Square Cm 0.50 -Photo Taken No -Epithelialization Small 1-33% -Tunneling No -Undermining/Tunneling No -Circular Undermining No -Classification - Pressure Ulcer Stage 2 -Wound Margin Flat & Intact -Granulation Amt Medium (34-66%) -Granulation Quality Red -Slough/Fibrin Yes -Necrosis Amt Small (1-33%) -Necrotic Tissue Type Adherent Slough -Structure Exposed N/A -Texture (Mariza-wound Skin Appearance) Assessed, Excoriation -Moisture (Mariza-wound Skin Appearance) Assessed,Dry/ Scaly -Color (Mariza-wound Skin Appearance) Assessed -Temperature (Mariza-wound Skin No Abnormality Appearance) (Pt Warm) -Tenderness on Palpation (Mariza-wound No Skin Appearance) -Ulcer Cleansing Wound Cleanser -Foul Odor after Cleansing No -Anesthetic Used 5% Lidocaine Gel #5 RT LAT LE POST-OP -Current Size (cm) - Length 23.3 22.5 -Current Size (cm) - Width 9 8.5 -Current Size (cm) - Depth 0.2 0.1 -Total Square Cm 209.7 191.25 -Date of Last Picture (Recall this field) -Photo Taken No -Epithelialization None Present -Tunneling No -Undermining/Tunneling No -Circular Undermining No -Exudate Amt Medium Medium -Exudate Type Serosanguineous Serosanguineous -Wound Margin Distinct, Distinct, Outline Outline Attached Attached -Granulation Amt Large (67-100%) Large (67-100%) -Granulation Quality Red Red -Slough/Fibrin No -Necrosis Amt -Necrotic Tissue Type -Texture (Mariza-wound Skin Appearance) Assessed Assessed -Moisture (Mariza-wound Skin Appearance) Assessed Assessed -Color (Mariza-wound Skin Appearance) Assessed, Assessed Hemosiderin Staining -Temperature (Mariza-wound Skin No Abnormality No Abnormality Appearance) (Pt Warm) (Pt Warm) -Tenderness on Palpation (Mariza-wound No Skin Appearance) -Ulcer Cleansing Soap and Water Soap and Water -Foul Odor after Cleansing No No -Anesthetic Used 4% Lidocaine 4% Lidocaine Solution Solution 03/08/24 08:15 Wound Center Nurse 1 6-right buttocks -Combined with other wound -Current Size (cm) - Length -Current Size (cm) - Width -Current Size (cm) - Depth -Total Square Cm -Photo Taken -Epithelialization -Tunneling -Undermining/Tunneling -Circular Undermining -Classification - Pressure Ulcer -Wound Margin -Granulation Amt -Granulation Quality -Slough/Fibrin -Necrosis Amt -Necrotic Tissue Type -Structure Exposed -Texture (Mariza-wound Skin Appearance) -Moisture (Mariza-wound Skin Appearance) -Color (Mariza-wound Skin Appearance) -Temperature (Mariza-wound Skin Appearance) -Tenderness on Palpation (Mariza-wound Skin Appearance) -Ulcer Cleansing -Foul Odor after Cleansing -Anesthetic Used #5 RT LAT LE POST-OP -Current Size (cm) - Length 22 -Current Size (cm) - Width 7.0 -Current Size (cm) - Depth 0.1 -Total Square Cm 154.0 -Date of Last Picture (Recall this 03/08/24 field) -Photo Taken Yes -Epithelialization -Tunneling No -Undermining/Tunneling No -Circular Undermining No -Exudate Amt Large -Exudate Type Sanguineous -Wound Margin Flat & Intact -Granulation Amt Medium (34-66%) -Granulation Quality Pale,[place] -Slough/Fibrin -Necrosis Amt Medium (34-66%) -Necrotic Tissue Type Adherent Slough -Texture (Mariza-wound Skin Appearance) Assessed -Moisture (Mariza-wound Skin Appearance) Assessed -Color (Mariza-wound Skin Appearance) Assessed -Temperature (Mariza-wound Skin No Abnormality Appearance) (Pt Warm) -Tenderness on Palpation (Mariza-wound No Skin Appearance) -Ulcer Cleansing Soap and Water -Foul Odor after Cleansing No -Anesthetic Used 4% Lidocaine Solution WC - Nurse 2 - General Ulcer CM Notes Start: 02/16/24 08:11 Freq: Status: Active Protocol: Activity Type Activity Date Activity User E-sign Co-sign Detail Recorded Client Recorded Date Recorded By Document 02/16/24 08:58 JF 000 02/16/24 09:04 JF Document 02/23/24 16:20 JF 0000 02/23/24 16:22 JF Document 03/08/24 09:02 TALI [id number] 03/08/24 09:12 JF 02/16/24 02/23/24 03/08/24 08:58 16:20 09:02 Wound Center Nurse 2 6-right buttocks -Correct Patient No No -Correct Side, Site, Position No No -Correct Procedure No No -Procedure Performed No No -Wound/Ulcer Outcome Not Healed Not Healed #5 RT LAT LE POST-OP -Time 08:58 16:20 09:10 -Correct Patient Yes Yes Yes -Correct Side, Site, Position Yes Yes Yes -Correct Procedure Yes Yes Yes -Procedure Performed Yes Yes Yes -Type of Procedure Debridement Debridement Debridement -Clinical Debridement Subcutaneous Subcutaneous Subcutaneous -Tissue Removed Subcutaneous Subcutaneous Subcutaneous -Post Debridement (cm) - Length 23 22.5 22.0 -Post Debridement (cm) - Width 9.1 8.8 7.2 -Post Debridement (cm) - Depth 0.1 0.1 0.1 -Total Square (Post) (cm) 209.3 198.00 158.40 -Area of Debridement (cm) - Length 23.0 22.5 22 -Area of Debridement (cm) - Width 9.1 8.8 7.2 -Total Square (Area) (cm) 209.30 198.00 158.4 -Tunneling No No No -Undermining/Tunneling No No No -Circular Undermining No No No -Wound/Ulcer Outcome Not Healed Not Healed Not Healed -Ulcer Cleansing Rinsed/ Rinsed/ Rinsed/ Irrigated with Irrigated with Irrigated with Saline Saline Saline -Foul Odor after Cleansing No No No -Bioengineered Tissue Yes Yes Yes -Type of Bioengineered Tissue Theraskin Theraskin Theraskin -Expiration Date 04/11/27 09/29/28 09/29/28 -Product Lot Number [id number] -Percent Used 100 100 100 -Lot number of Saline Used [id number] -Bleeding Controlled with Pressure Pressure Pressure -Treatment Response Procedure Procedure Procedure Tolerated Well Tolerated Well Tolerated Well -Offloading No No No -Debridement - Subq, 1st 20sq cm No No No -Apply Skin Sub - 1st 100 sq cm - Legs 1 1 1 -Apply Skin Sub - each addt'l 100 sq 1 1 1 cm - Legs -Theraskin - 103TSXL (116 SQ CM) (per 116 116 116 sq cm) Pain Scale: 0-10 Numeric Is Patient Pain Free? Yes Yes Yes WC - Nurse 3 - General Ulcer D/C NN Start: 02/16/24 08:11 Freq: Status: Active Protocol: Activity Type Activity Date Activity User E-sign Co-sign Detail Recorded Client Recorded Date Recorded By Document 02/16/24 10:14 KW fcg 02/16/24 10:15 KW Document 02/23/24 16:50 CP 02/23/24 16:51 CP Document 03/08/24 09:25 KW [id number] 03/08/24 09:27 KW 02/16/24 02/23/24 03/08/24 10:14 16:50 09:25 Wound Care Center Nurse 3 #7 LT HEEL -Ulcer Cleansing Rinsed/ Irrigated with Saline -Primary Dressing Applied Mepilex Border -Other Dressing BETADINE -Mepilex Border 1 6-right buttocks -Ulcer Cleansing Soap and Water -Other Dressing barrier ointment -Primary Dressing Covered/Secured with Dry Gauze, Secured with Tape #5 RT LAT LE POST-OP -Negative Pressure Wound Therapy Continue Continue -Setting (mmHg) 75 75 -Negative Pressure is Continuous Continuous -Other Dressing abd -Primary Dressing Covered/Secured with Dry Gauze & Roll Gauze, Secured with Tape -NPWT Application Charge NPWT & NPWT & Debridement (nc Debridement (nc ) ) Right -Compression Wrap Celso Wrap Celso Wrap BLE -Compression Wrap Celso Wrap Treatment Response Procedure Tolerated Well Pain Scale: 0-10 Numeric Is Patient Pain Free? No Yes Yes sacrum -Description Sharp,Burning -Intensity 10 -Alleviating Factors/Interventions Turning/ Repositioning WC - Visit Discharge Discharge Condition Stable Stable Ambulatory Status Wheelchair Wheelchair Transportation Private Auto Clinical Summary of Care Provided Yes Facility Type Custodial Care Facility Orders Sent Yes Assessment/Plan Assessment/Plan (1) Non-pressure chronic ulcer of other part of right lower leg with fat layer exposed: CODE(S): L97.812 - Non-pressure chronic ulcer of other part of right lower leg with fat layer exposed PLAN: Patient was examined and evaluated. All findings were discussed with the patient. All questions were answered to the patient's satisfaction. Excisional debridement of the lateral right leg ulceration down to including subcutaneous tissue with a number 7 mm dermal curette without incident. Predebridement measurement is 22.0 x 7.0 x 0.1 cm. Postdebridement measurement is 22.0 x 7.2 x 0.1 cm. Theraskin skin 116 cm? graft was applied to the right leg full-thickness ulceration with 100% use. Third application. The graft site was free and clear of any infection. The wound/skin graft substitute was dressed with nonadherent bandage secured in place with Dermabond and Steri-Strips followed by negative pressure wound VAC sent to 75 mmHg. No need to change the wound VAC and the patient will return in 1 week. Follow-up at the wound care center with Dr. Shannon in 1 week. (2) Other specified peripheral vascular diseases: CODE(S): I73.89 - Other specified peripheral vascular diseases (3) Contusion of left heel: CODE(S): S90.32XA - Contusion of left foot, initial encounter QUALIFIERS: Encounter type: initial encounter Qualified Code(s): S90.32XA - Contusion of left foot, initial encounter
--- NOTE | 2024-03-09 08:58 | WC ---
PHOTO 03/08/24 RIGHT LEFT POST OP
--- NOTE | 2024-03-09 09:02 | WC ---
PHOTO 03/08/24 RIGHT LE POST OP
== END 2024-03-11 23:59 | disposition home or self-care (01) ==
LOC: WC 08:15
PROVIDERS: Referring Provider Surgery; Visit Provider Podiatrist Foot & Ankle Surgery
DX: E11.622 Type 2 diabetes mellitus with other skin ulcer (principal); L97.913 Non-pressure chronic ulcer of unspecified part of right lower leg with necrosis of muscle; L97.812 Non-pressure chronic ulcer of other part of right lower leg with fat layer exposed; I48.91 Unspecified atrial fibrillation; E66.01 Morbid (severe) obesity due to excess calories; L89.621 Pressure ulcer of left heel, stage 1; I73.89 Other specified peripheral vascular diseases; S90.32XA Contusion of left foot, initial encounter; I38 Endocarditis, valve unspecified; I87.2 Venous insufficiency (chronic) (peripheral); N40.0 Benign prostatic hyperplasia without lower urinary tract symptoms; D50.0 Iron deficiency anemia secondary to blood loss (chronic); I10 Essential (primary) hypertension; K44.9 Diaphragmatic hernia without obstruction or gangrene; K57.90 Diverticulosis of intestine, part unspecified, without perforation or abscess without bleeding; R53.81 Other malaise; G47.33 Obstructive sleep apnea (adult) (pediatric); Z86.79 Personal history of other diseases of the circulatory system; M79.89 Other specified soft tissue disorders; R60.0 Localized edema; Z95.2 Presence of prosthetic heart valve; Z86.718 Personal history of other venous thrombosis and embolism
CPT/HCPCS: 15273; 15274; Q4121

== ENCOUNTER 2024-04-05 14:30 | Outpatient (RCR) | payer MEDICARE, SELFPAY ==
[2024-03-12 00:16] VITALS: BP 167/86; PULSE 60; RESP 16; TEMP 36.2; BMI 44.6
[2024-03-15 14:56] VITALS: BP 189/75; PULSE 64; RESP 16; TEMP 36.2; BMI 44.6
--- NOTE | 2024-03-15 15:28 | PN.PCM_ITS ---
History of Present Illness Date of Service: 03/15/24 Chief Complaint: Ulcerations of the right lateral calf with large areas of necrosis, and extension into muscle History of Wound: This is a 68-year-old morbidly obese diabetic male who presented with 3 large ulcerations on the right lateral calf. According to the patient, they had been present for approximately 6 weeks. The origin of the ulcerations is uncertain, though they may have resulted from a fall which the patient experienced while at home. The patient has multiple pre-existing medical problems, which have been listed below. He had recently been treated for blood loss anemia from a gastrointestinal source. He is a resident of [facility] in [place], [place]. He has a history of bilateral lower extremity deep vein thrombosis, and a venous duplex examination performed on October 22, 2023, revealed chronic changes in the right lower extremity deep venous system, with a normal superficial venous system. Management of the patient's wound had been by means of the [facility] Process Design Chemical Engineer, Dr. Reyna, from [place], [place]. Approximately 1 week prior to presentation, the patient underwent placement of a left upper extremity PICC catheter and has been receiving vancomycin and Zosyn intravenously. The patient had been on chronic systemic anticoagulation with Eliquis until recently, which was discontinued as a result of his recent gastrointestinal bleeding. The patient underwent laboratory studies recently, the results of which are as follows: Glucose 106, sodium 145, potassium 4.9, chloride 107, BUN 30, creatinine 1.3, calcium 9.0, white blood count 5.4, hemoglobin 10.0, hematocrit 32.3, platelets 141,000, sed rate 35, D-dimer 1.81, C-reactive protein 37.6. A chest x-ray on October 28, 2023, revealed no acute abnormalities. The patient is not active. He claims to sleep on a flat mattress at night. Subjective Subjective Mr. Gutierrez is a 68-year-old diabetic male presenting to the wound care center today for follow-up evaluation of full-thickness wound to the lateral aspect of the right lower extremity with TheraSkin application. He is also being evaluated for a heel blister as well as sacral wound by the nurse practitioner. Patient admits to getting the proper bed and feels that he is more comfortable at this time. During his week away from the wound care center they have left the graft clean dry and intact. They have been performing dressing changes to the left heel and treatment to the sacral area. He denies any new onset of trauma. Denies constitutional symptoms. Other pedal complaints at this time. Objective Data Objective Data Vital Signs: Vital Signs Temp Pulse Resp BP O2 Del Method 97.1 F L 64 16 189/75 H Room Air 03/15/24 14:56 03/15/24 14:56 03/15/24 14:56 03/15/24 14:56 03/15/24 14:56 Oxygen Delivery Method Room Air Weight: 157.85 kg Body Mass Index (BMI) 44.6 Physical Exam Narrative Vascular: DP and PT pulses are palpable to the right lower extremity. Nonpitting edema appreciated to the right lower extremity. Skin temperature gradient is warm to warm from proximal ankles to distal digit. No focal increase appreciated. Neurological: Light touch intact. Patient response to painful stimuli. Protective sensation is diminished. Dermatological: Full-thickness ulceration to the lateral aspect of the right leg measuring 21.5 x 7.0 x 0.1 cm. Wound base is under percent granular nature with evidence of sanguinous drainage. No malodor or probe to bone. No sign of infection. Evidence of stage I pressure sore appreciated to the left heel, stable no SOI No sign of infection. Excisional debridement of the lateral right leg ulceration down to including subcutaneous tissue with a number 7 mm dermal curette without incident. Predebridement measurement is 21.3 x 6.8 x 0.1 cm. Postdebridement measurement is 21.5 x 7.0 x 0.1 cm. Theraskin skin 116 cm? graft was applied to the right leg full-thickness ulceration with 100% use. Fourth application. The graft site was free and clear of any infection. The wound/skin graft substitute was dressed with nonadherent bandage secured in place with Dermabond and Steri-Strips followed by Bolster dressing and compression bandages to the right lower extremity. Musculoskeletal: Mild pain to palpation to full-thickness ulceration. No pain with calf compression. Debridement Note Debridement Note Debridement Free Text: Excisional debridement of the lateral right leg ulceration down to including subcutaneous tissue with a number 7 mm dermal curette without incident. Predebridement measurement is 21.3 x 6.8 x 0.1 cm. Postdebridement measurement is 21.5 x 7.0 x 0.1 cm. Theraskin skin 116 cm? graft was applied to the right leg full-thickness ulceration with 100% use. Fourth application. The graft site was free and clear of any infection. The wound/skin graft substitute was dressed with nonadherent bandage secured in place with Dermabond and Steri-Strips followed by Bolster dressing and compression bandages to the right lower extremity. Post-Debridement Measurements and Additional Note: Post-Debridement Measurements/Treatment - Nurse 1 - General Ulcer Assessment Start: 03/15/24 14:56 Freq: Status: Active Protocol: GALE Activity Type Activity Date Activity User E-sign Co-sign Detail Recorded Client Recorded Date Recorded By Document 03/15/24 14:56 [id number] 03/15/24 15:10 CP 03/15/24 14:56 WC - Today's Visit Information Type of service Follow-up Visit (Physician/CASH POSTING SPECIALIST ) Arrival Mode Wheelchair Transfer Assist (Other) 1 Patient Identification Verified (Name & Yes ) Safety Precautions Fall Prevention Height and Weight Body Mass Index (BMI) 44.6 BMI Classification Obese Vital Signs Temperature (97.8 F-99.1 F) 97.1 F L Temperature Source Temporal Pulse Rate (60-100) 64 Pulse Location Monitor Respiratory Rate (12-18) 16 Respiratory rate source Observation Oxygen Delivery Method Room Air Blood Pressure (90/60-120/80) 189/75 H Blood Pressure Mean (mm Hg) 113 Source Monitor Position Semi-Fowlers Blood Pressure Location Right Arm History Since Last Visit- (Skip if this is Patient's initial visit) Have you changed medications since your No last visit? Any new allergies or adverse reactions No Had a fall/change in ADL's that may No increase risk of falls Signs or symptoms of abuse and/or No neglect since last visit Have you been in the hospital since your No last visit? Has dressing in place as prescribed Yes Has compression in place as prescribed Yes Pain Scale: 0-10 Numeric Is Patient Pain Free? Yes - Nurse 1 - General Ulcer Measurement Start: 03/15/24 14:56 Freq: Status: Active Protocol: Activity Type Activity Date Activity User E-sign Co-sign Detail Recorded Client Recorded Date Recorded By Document 03/15/24 14:56 CP [id number] 03/15/24 15:10 CP 03/15/24 14:56 Wound Center Nurse 1 #7 LT HEEL -Current Size (cm) - Length 0.1 -Current Size (cm) - Width 0.1 -Current Size (cm) - Depth 0.1 -Total Square Cm 0.01 -Classification - Pressure Ulcer Suspected Deep Tissue Injury #5 RT LAT LE POST-OP -Current Size (cm) - Length 22 -Current Size (cm) - Width 7.4 -Current Size (cm) - Depth 0.2 -Total Square Cm 162.8 -Photo Taken No -Classification - Thickness Full Thickness without Exposed Support Structure -Exudate Amt Small -Exudate Type Serosanguineous -Wound Margin Flat & Intact -Granulation Amt Large (67-100%) -Granulation Quality Red -Necrosis Amt Small (1-33%) -Necrotic Tissue Type Adherent Slough -Structure Exposed N/A -Texture (Mariza-wound Skin Appearance) No Abnormality -Moisture (Mariza-wound Skin Appearance) No Abnormality -Color (Mariza-wound Skin Appearance) No Abnormality -Temperature (Mariza-wound Skin No Abnormality Appearance) (Pt Warm) -Tenderness on Palpation (Mariza-wound Yes Skin Appearance) -Ulcer Cleansing Soap and Water -Foul Odor after Cleansing No -Anesthetic Used Cetacaine Left Calf (cm) 42.4 Left Ankle (cm) 27.3 WC - Nurse 2 - General Ulcer CM Notes Start: 03/15/24 14:56 Freq: Status: Active Protocol: Activity Type Activity Date Activity User E-sign Co-sign Detail Recorded Client Recorded Date Recorded By Document 03/15/24 15:13 [id number] 03/15/24 15:27 03/15/24 15:13 Wound Center Nurse 2 #7 LT HEEL -Correct Patient No -Correct Side, Site, Position No -Correct Procedure No -Procedure Performed No -Wound/Ulcer Outcome Not Healed #5 RT LAT LE POST-OP -Correct Patient Yes -Correct Side, Site, Position Yes -Correct Procedure Yes -Procedure Performed Yes -Type of Procedure Debridement -Clinical Debridement Subcutaneous -Tissue Removed Subcutaneous -Post Debridement (cm) - Length 21.5 -Post Debridement (cm) - Width 7 -Post Debridement (cm) - Depth 0.1 -Total Square (Post) (cm) 150.5 -Area of Debridement (cm) - Length 21.5 -Area of Debridement (cm) - Width 7 -Total Square (Area) (cm) 150.5 -Tunneling No -Undermining/Tunneling No -Circular Undermining No -Wound/Ulcer Outcome Not Healed -Ulcer Cleansing Rinsed/ Irrigated with Saline -Foul Odor after Cleansing No -Bioengineered Tissue Yes -Type of Bioengineered Tissue Theraskin -Expiration Date 03/22/28 -Product Lot Number [id number] -Percent Used 100 -Lot number of Saline Used [id number] -Bleeding Controlled with Pressure -Treatment Response Procedure Tolerated Well -Offloading No -Debridement - Subq, 1st 20sq cm No -Apply Skin Sub - 1st 100 sq cm - Legs 1 -Apply Skin Sub - each addt'l 100 sq 1 cm - Legs -Theraskin - 103TSXL (116 SQ CM) (per 116 sq cm) Pain Scale: 0-10 Numeric Is Patient Pain Free? Yes Assessment/Plan Assessment/Plan (1) Non-pressure chronic ulcer of other part of right lower leg with fat layer exposed: CODE(S): L97.812 - Non-pressure chronic ulcer of other part of right lower leg with fat layer exposed PLAN: Patient was examined and evaluated. All findings were discussed with the patient. All questions were answered to the patient's satisfaction. Excisional debridement of the lateral right leg ulceration down to including subcutaneous tissue with a number 7 mm dermal curette without incident. Predebridement measurement is 21.3 x 6.8 x 0.1 cm. Postdebridement measurement is 21.5 x 7.0 x 0.1 cm. Theraskin skin 116 cm? graft was applied to the right leg full-thickness ulceration with 100% use. Fourth application. The graft site was free and clear of any infection. The wound/skin graft substitute was dressed with nonadherent bandage secured in place with Dermabond and Steri-Strips followed by Bolster dressing and compression bandages to the right lower extremity. Left heel blister was dressed with Betadine paint dry sterile dressing. Orders were given for dressing changes to the bilateral lower extremity. The patient will only have outer dressing changed to right lower extremity and full dressing changes to left lower extremity. Patient will also be seeing the nurse practitioner for his sacral wound. Follow-up at the wound care center with Dr. Shannon in 1 week. (2) Other specified peripheral vascular diseases: CODE(S): I73.89 - Other specified peripheral vascular diseases (3) Blister of left heel: CODE(S): S90.822A - Blister (nonthermal), left foot, initial encounter QUALIFIERS: Encounter type: subsequent encounter Qualified Code(s): S90.822D - Blister (nonthermal), left foot, subsequent encounter
[2024-03-15 15:36] VITALS: BMI 44.6
--- NOTE | 2024-03-15 17:32 | PCM.WC.HP ---
History of Present Illness Date of Service: 03/15/24 Chief Complaint: Right buttock ulceration History of Wound: This is a 68-year-old morbidly obese diabetic male who sees Dr. Shannon for 3 large ulcerations on the right lateral calf. He is a resident of [facility] in [place], [place]. He has a history of bilateral lower extremity deep vein thrombosis, and a venous duplex examination performed on October 22, 2023, revealed chronic changes in the right lower extremity deep venous system, with a normal superficial venous system. Management of the patient's wound had been by means of the skilled nursing Reinsurance Clerk, Dr. Reyna, from [place], [place]. Approximately 1 week prior to presentation, the patient underwent placement of a left upper extremity PICC catheter and has been receiving vancomycin and Zosyn intravenously. The patient had been on chronic systemic anticoagulation with Eliquis until recently, which was discontinued as a result of his recent gastrointestinal bleeding. He developed a right buttocks (ischial area) pressure sore over the past month. He denies sleeping on low air loss mattress because he is unable to move it the bed and he finds it very difficult to move and to breath. He wears CPAP at night that he states he must sleep on his back when wearing. He admits to sitting for long periods of time in his wheel chair. He sits on a cushion and a pillow. He states they have been putting a barrier cream on the area and he believes it is making it worse. He states it is painful to touch and to sit on. Progress of Wound: Right buttocks pressure ulcer is superficial with pink tissue in place. It is tender to palpation. Mariza wound is clear. ON LICENSE OF [facility] Medical History (Reviewed 03/17/24 @ 16:17 by Nicol Dsouza C APPLICATION DEVELOPER, C APPLICATION DEVELOPER-C) Acute painful diabetic polyneuropathy Current use of insulin Chronic headaches Cancer Diabetes Kidney disease Former smoker CPAP (continuous positive airway pressure) dependence On home oxygen therapy Pulmonary embolism COPD (chronic obstructive pulmonary disease) Myocardial infarct DVT (deep venous thrombosis) Anemia Ulcer with necrosis of muscle Lymphedema of left lower extremity Lymphedema of right lower extremity Edema of left lower leg Edema of right lower leg Left leg swelling Right leg swelling Chronic venous insufficiency Non-pressure ulcer of right lower extremity with necrosis of muscle BPH (benign prostatic hyperplasia) Atrial fibrillation History of deep vein thrombosis (DVT) of lower extremity Blood loss anemia Hypertension Hiatal hernia Diverticulosis Debility Morbid obesity with BMI of 40.0-44.9, adult Obstructive sleep apnea on CPAP History of congestive heart failure Impaired mobility SOB (shortness of breath) Recurrent right inguinal hernia Heart murmur Heart failure 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 2 diabetes mellitus Aortic valve disease Renal mass, left History of DVT (deep vein thrombosis) Valvular heart disease Atrial fibrillation/flutter Chronic acquired lymphedema Chronic anemia Venous insufficiency (chronic) (peripheral) Ulcer of left lower extremity with fat layer exposed Superficial thrombosis of left lower extremity Peripheral vascular disease of lower extremity with ulceration Sleep apnea Morbid obesity DM2 (diabetes mellitus, type 2) Benign essential HTN Home Medications ?Medication ?Instructions ?Recorded ?Last Taken ?Type aspirin 81 mg tablet,delayed 81 mg PO DAILY 03/17/19 Unknown History release amlodipine 5 mg tablet 5 mg PO DAILY 10/28/23 Unknown History apixaban 5 mg tablet (Eliquis) 5 mg PO BID 10/28/23 Unknown History atorvastatin 20 mg tablet 20 mg PO QHS 10/28/23 Unknown History ferrous sulfate 325 mg (65 mg 325 mg PO DAILY 10/28/23 Unknown History iron) tablet (Feosol) gabapentin 300 mg capsule 300 mg PO TID 10/28/23 Unknown History melatonin 3 mg tablet 3 mg PO QHS 10/28/23 Unknown History albuterol sulfate 2.5 mg/3 mL 2.5 mg (3 mL) inhalation Q2H PRN 11/03/23 Unknown Rx (0.083 %) solution for nebulization PRN Dyspnea, wheezing #0 mL budesonide 0.5 mg/2 mL suspension 0.5 mg (2 mL) inhalation BID.RT #0 11/03/23 Unknown Rx for nebulization mL insulin glargine-yfgn 100 unit/mL 40 unit (0.4 mL) subcut DAILY #0 mL 11/03/23 Unknown Rx (3 mL) subcutaneous pen menthol 0.44 %-zinc oxide 20.6 % 1 applic topical BID #0 grams 11/03/23 Unknown Rx topical ointment (Calmoseptine) nystatin 100,000 unit/gram topical 1 applic topical TID #0 grams 11/03/23 Unknown Rx powder (Nyamyc) potassium chloride 20 mEq 20 meq PO BIDCM #0 tabs 11/03/23 Unknown Rx tablet,extended release(part/cryst) ascorbic acid (vitamin C) 250 mg 250 mg PO DAILY 11/29/23 Unknown History tablet bumetanide 1 mg tablet 1 mg PO QDAY 12/22/23 Unknown History insulin lispro 100 unit/mL 1 sliding scale dose subcut 12/22/23 Unknown History subcutaneous solution USEASDIRECTD tamsulosin 0.4 mg capsule 0.8 mg PO DAILY 12/22/23 Unknown History tirzepatide 5 mg/0.5 mL 5 mg subcut SA 12/22/23 Unknown History subcutaneous pen injector (Mounjaro) budesonide-formoterol HFA 160 2 inh inhalation BID 01/03/24 Unknown History mcg-4.5 mcg/actuation aerosol inhaler (Symbicort) docusate sodium 100 mg capsule 100 mg PO BID 01/03/24 Unknown History (Col-Rite) trazodone 50 mg tablet 50 mg PO QHS 01/03/24 Unknown History amoxicillin 875 mg-potassium 1 tab PO BID #14 tabs 01/07/24 Unknown Rx clavulanate 125 mg tablet levofloxacin 750 mg tablet 750 mg PO DAILY@0600 7 days #7 tabs 01/07/24 Unknown Rx acetaminophen 500 mg tablet 1,000 mg (2 x 500 mg) PO Q8 PRN 01/08/24 Unknown Rx fever or pain #30 tabs arginine 7 gram-glutam 7 1 packet PO BIDCM #0 ea 01/08/24 Unknown Rx gram-CaHMB 1.5 npwk-mjkfq-dt-min oral pwd pkt (Santhosh (with collagen)) oxycodone 5 mg tablet 5 mg PO Q4H PRN PRN Pain Score 01/08/24 Unknown Rx 4-10 3 days #12 tabs sodium hypochlorite 0.25 % 1 applic topical BID #0 mL 01/08/24 Unknown Rx solution (HySept) Allergy/AdvReac Type Severity Reaction Status Date / Time ibuprofen (From Nuprin) Allergy Unknown Verified 01/03/24 09:36 Family History (Reviewed 03/17/24 @ 16:17 by Nicol Dsouza C APPLICATION DEVELOPER, C APPLICATION DEVELOPER-C) Mother Diabetes Father Cirrhosis of liver Alcoholism Surgical History (Reviewed 03/17/24 @ 16:17 by Nicol Dsouza C APPLICATION DEVELOPER, C APPLICATION DEVELOPER-C) History of embolic filter insertion History of right inguinal hernia repair H/O colectomy History of repair of inguinal hernia History of bladder surgery History of tonsillectomy and adenoidectomy History of right inguinal hernia repair S/P AVR (aortic valve replacement) Social History housing: skilled nursing Smoking Status: Former smoker how long ago did patient quit smoking: Quit ~ 20 yrs prior, smoked age 15 until quit ~ 2 ppd. alcohol intake: never substance use type: does not use ROS Constitutional Constitutional: Denies chills or fever(s) Eyes Eyes: Reports systems reviewed and no addt'l complaints, except as documented ENT HEENT: Reports systems reviewed and no addt'l complaints, except as documented Cardiovascular Cardiovascular: Denies chest pain, dyspnea, nausea or vomiting Respiratory/Chest Respiratory/Chest: Denies cough or dyspnea Gastrointestinal Gastrointestinal: Denies diarrhea, nausea or vomiting Genitourinary Genitourinary: Reports other Details: urinary catheter in place Musculoskeletal Musculoskeletal: Reports joint pain and joint stiffness Integumentary Integumentary: Reports skin ulcer and wounds Neurologic Neurologic: Reports as per HPI Psychiatric Psychiatric: Reports depression Endocrine Endocrinology: Reports none Hematologic/Lymphatic Hematologic/Lymphatic: Reports none Allergic/Immunologic Allergic/Immunologic: Reports none Vital Signs Vital Signs Vital Signs: 03/15/24 14:56 Temperature 97.1 F L Temperature Source Temporal Pulse Rate 64 Respiratory Rate 16 Blood Pressure 189/75 H Blood Pressure Mean 113 Blood Pressure Source Monitor Blood Pressure Position Semi-Fowlers Blood Pressure Location Right Arm Oxygen Delivery Method Room Air Weight Weight: 348 lb Body Mass Index (BMI) 44.6 Physical Exam Const alert, oriented x3 and no apparent distress HEENT normocephalic Head and Scalp: atraumatic Eyes General Eye: normal appearance of both eyes Neck full ROM Resp normal respiratory effort, normal air movement and clear to auscultation bilaterally Effort and Inspection: able to speak in complete sentences Cardio regular rate and regular rhythm GI normal to inspection, nondistended, normoactive bowel sounds, soft to palpation and non-tender Bladder / Kidney Exam: catheter in place urethral Back/Spine normal ROM Extremity normal capillary refill Skin Wound Narrative: Right buttock stage II ulcer is pink and superficial. Mariza wound is clear. He has Left heel ulcers that are being managed by Dr. Shannon. Neuro oriented x3 Psych cooperative Appearance: appropriate Speech: normal speech Mood & Affect: flat affect Debridement Note Debridement Note Wound debrided: buttock Laterality: Right Wound Grade/Stage: Stage II Type of Debridement: Excisional debridement Anesthesia Used: 5% Lidocaine Gel Depth: Down to and including healthy tissue Percentage of wound debrided: 100 Instrument Used: 3mm curette Tissue Removed: Non viable tissue and slough Severity: Limited To Skin Breakdown Amount of bleeding with debridement: Mild Bleeding Controlled with: Pressure and Compression and gauze Patient tolerated procedure: Patient tolerated procedure well Post-Debridement Measurements and Additional Note: Post-Debridement Measurements/Treatment - Nurse 1 - General Ulcer Assessment Start: 03/15/24 14:56 Freq: Status: Active Protocol: GALE Activity Type Activity Date Activity User E-sign Co-sign Detail Recorded Client Recorded Date Recorded By Document 03/15/24 14:56 CP [id number] 03/15/24 15:10 CP Document 03/15/24 15:36 KW [id number] 03/15/24 15:47 KW 03/15/24 03/15/24 14:56 15:36 - Today's Visit Information Type of service Follow-up Visit (Physician/CAFETERIA SUPERVISOR ) Arrival Mode Wheelchair Transfer Assist (Other) 1 Patient Identification Verified (Name & Yes Yes ) Safety Precautions Fall Prevention Height and Weight Body Mass Index (BMI) 44.6 44.6 BMI Classification Obese Obese Vital Signs Temperature (97.8 F-99.1 F) 97.1 F L Temperature Source Temporal Pulse Rate (60-100) 64 Pulse Location Monitor Respiratory Rate (12-18) 16 Respiratory rate source Observation Oxygen Delivery Method Room Air Blood Pressure (90/60-120/80) 189/75 H Blood Pressure Mean 113 Source Monitor Position Semi-Fowlers Blood Pressure Location Right Arm History Since Last Visit- (Skip if this is Patient's initial visit) Have you changed medications since your No last visit? Any new allergies or adverse reactions No Had a fall/change in ADL's that may No increase risk of falls Signs or symptoms of abuse and/or No neglect since last visit Have you been in the hospital since your No last visit? Has dressing in place as prescribed Yes Has compression in place as prescribed Yes Left Footwear Regular Shoe Right Footwear Regular Shoe Pain Scale: 0-10 Numeric Is Patient Pain Free? Yes Yes - Nurse 1 - General Ulcer Measurement Start: 03/15/24 14:56 Freq: Status: Active Protocol: Activity Type Activity Date Activity User E-sign Co-sign Detail Recorded Client Recorded Date Recorded By Document 03/15/24 14:56 CP [id number] 03/15/24 15:10 CP Document 03/15/24 15:36 KW [id number] 03/15/24 15:47 KW 03/15/24 03/15/24 14:56 15:36 Wound Center Nurse 1 #7 LT HEEL -Current Size (cm) - Length 0.1 -Current Size (cm) - Width 0.1 -Current Size (cm) - Depth 0.1 -Total Square Cm 0.01 -Classification - Pressure Ulcer Suspected Deep Tissue Injury 6-right buttocks -Combined with other wound No -Current Size (cm) - Length 0.1 -Current Size (cm) - Width 0.1 -Current Size (cm) - Depth 0.1 -Total Square Cm 0.01 -Epithelialization Small 1-33% -Tunneling No -Undermining/Tunneling No -Circular Undermining No -Exudate Amt Small -Exudate Type Serosanguineous -Wound Margin Flat & Intact -Texture (Mariza-wound Skin Appearance) Assessed, Scarring -Moisture (Mariza-wound Skin Appearance) Assessed -Color (Mariza-wound Skin Appearance) Assessed, Erythema -Temperature (Mariza-wound Skin No Abnormality Appearance) (Pt Warm) -Tenderness on Palpation (Mariza-wound No Skin Appearance) -Ulcer Cleansing Rinsed/ Irrigated with Saline -Foul Odor after Cleansing No -Anesthetic Used 5% Lidocaine Gel #5 RT LAT LE POST-OP -Current Size (cm) - Length 22 -Current Size (cm) - Width 7.4 -Current Size (cm) - Depth 0.2 -Total Square Cm 162.8 -Photo Taken No -Classification - Thickness Full Thickness without Exposed Support Structure -Exudate Amt Small -Exudate Type Serosanguineous -Wound Margin Flat & Intact -Granulation Amt Large (67-100%) -Granulation Quality Red -Necrosis Amt Small (1-33%) -Necrotic Tissue Type Adherent Slough -Structure Exposed N/A -Texture (Mariza-wound Skin Appearance) No Abnormality -Moisture (Mariza-wound Skin Appearance) No Abnormality -Color (Mariza-wound Skin Appearance) No Abnormality -Temperature (Mariaz-wound Skin No Abnormality Appearance) (Pt Warm) -Tenderness on Palpation (Mariza-wound Yes Skin Appearance) -Ulcer Cleansing Soap and Water -Foul Odor after Cleansing No -Anesthetic Used Cetacaine Left Calf (cm) 42.4 Left Ankle (cm) 27.3 WC - Nurse 2 - General Ulcer CM Notes Start: 03/15/24 14:56 Freq: Status: Active Protocol: Activity Type Activity Date Activity User E-sign Co-sign Detail Recorded Client Recorded Date Recorded By Document 03/15/24 15:13 [id number] 03/15/24 15:27 Document 03/15/24 16:07 [id number] 03/15/24 16:14 03/15/24 03/15/24 15:13 16:07 Wound Center Nurse 2 #7 LT HEEL -Correct Patient No -Correct Side, Site, Position No -Correct Procedure No -Procedure Performed No -Wound/Ulcer Outcome Not Healed 6-right buttocks -Time 16:07 -Correct Patient Yes -Correct Side, Site, Position Yes -Tunneling No -Undermining/Tunneling No -Circular Undermining No -Wound/Ulcer Outcome Not Healed -Ulcer Cleansing Rinsed/ Irrigated with Saline -Foul Odor after Cleansing No -Bioengineered Tissue No -Wound Comment(s) very thin skin layer #5 RT LAT LE POST-OP -Correct Patient Yes -Correct Side, Site, Position Yes -Correct Procedure Yes -Procedure Performed Yes -Type of Procedure Debridement -Clinical Debridement Subcutaneous -Tissue Removed Subcutaneous -Post Debridement (cm) - Length 21.5 -Post Debridement (cm) - Width 7 -Post Debridement (cm) - Depth 0.1 -Total Square (Post) (cm) 150.5 -Area of Debridement (cm) - Length 21.5 -Area of Debridement (cm) - Width 7 -Total Square (Area) (cm) 150.5 -Tunneling No -Undermining/Tunneling No -Circular Undermining No -Wound/Ulcer Outcome Not Healed -Ulcer Cleansing Rinsed/ Irrigated with Saline -Foul Odor after Cleansing No -Bioengineered Tissue Yes -Type of Bioengineered Tissue Theraskin -Expiration Date 03/22/28 -Product Lot Number [id number] -Percent Used 100 -Lot number of Saline Used [id number] -Bleeding Controlled with Pressure -Treatment Response Procedure Tolerated Well -Offloading No -Debridement - Subq, 1st 20sq cm No -Apply Skin Sub - 1st 100 sq cm - Legs 1 -Apply Skin Sub - each addt'l 100 sq 1 cm - Legs -Theraskin - 103TSXL (116 SQ CM) (per 116 sq cm) Pain Scale: 0-10 Numeric Is Patient Pain Free? Yes Yes - Nurse 3 - General Ulcer D/C NN Start: 03/15/24 14:56 Freq: Status: Active Protocol: Activity Type Activity Date Activity User E-sign Co-sign Detail Recorded Client Recorded Date Recorded By Document 03/15/24 15:35 KW [id number] 03/15/24 15:36 KW Document 03/15/24 16:20 [facility] [id number] 03/15/24 16:21 [facility] 03/15/24 03/15/24 15:35 16:20 Wound Care Center Nurse 3 #7 LT HEEL -Other Dressing betadine -Primary Dressing Covered/Secured with Dry Gauze & Roll Gauze, Secured with Tape 6-right buttocks -Ulcer Cleansing Rinsed/ Irrigated with Saline -Foul Odor after Cleansing No -Primary Dressing Applied Mepilex Border -Other Dressing hydrogel -Mepilex Border 1 #5 RT LAT LE POST-OP -Primary Dressing Covered/Secured with Dry Gauze & Roll Gauze, Secured with Tape Right -Compression Wrap Celso Wrap Left -Compression Wrap Celso Wrap Treatment Response Procedure Tolerated Well Pain Scale: 0-10 Numeric Is Patient Pain Free? Yes Yes - Visit Discharge Discharge Condition Stable Stable Ambulatory Status Wheelchair Wheelchair Transportation ecf Medication Reconcilliation completed & No provided to patient/care provider Clinical Summary of Care Provided Yes Facility Type Residential Care Facility Charges/Coding Visit Charges Office Visits / Consults: 94822 OV L3 Est 20min (25 modifier) Procedures Integumentary [id number]: [id number] Gisell subq tissue 20 sq cm/< Assessment/Plan Assessment/Plan (1) Stage II pressure ulcer of right buttock: CODE(S): L89.312 - Pressure ulcer of right buttock, stage 2 PLAN: Plan Right buttock ulcer evaluated today. Encouraged off loading as much as possible. Encouraged standing and ambulating with assistance. Wound care - Collagen hydrogel covered with Mepilex/Port Tobacco SAP/Foam bordered dressing daily and as needed. Wash the area with soap and water with dressing changes. Continue to be seen by Dr. Shannon for his foot ulcers. Follow up with me in one week.
[2024-03-22 15:03] VITALS: BP 121/66; PULSE 78; RESP 18; TEMP 36.6; BMI 44.6
--- NOTE | 2024-03-22 16:38 | PN.PCM_ITS ---
History of Present Illness Date of Service: 03/22/24 Chief Complaint: Right buttock ulceration History of Wound: This is a 68-year-old morbidly obese diabetic male who sees Dr. Shannon for 3 large ulcerations on the right lateral calf. He is a resident of [facility] in [place], [place]. He has a history of bilateral lower extremity deep vein thrombosis, and a venous duplex examination performed on October 22, 2023, revealed chronic changes in the right lower extremity deep venous system, with a normal superficial venous system. Management of the patient's wound had been by means of the [facility], Dr. Reyna, from [place], [place]. Approximately 1 week prior to presentation, the patient underwent placement of a left upper extremity PICC catheter and has been receiving vancomycin and Zosyn intravenously. The patient had been on chronic systemic anticoagulation with Eliquis until recently, which was discontinued as a result of his recent gastrointestinal bleeding. He developed a right buttocks (ischial area) pressure sore over the past month. He denies sleeping on low air loss mattress because he is unable to move it the bed and he finds it very difficult to move and to breath. He wears CPAP at night that he states he must sleep on his back when wearing. He admits to sitting for long periods of time in his wheel chair. He sits on a cushion and a pillow. He states they have been putting a barrier cream on the area and he believes it is making it worse. He states it is painful to touch and to sit on. Progress of Wound: Right buttocks pressure ulcer is superficial with pink tissue in place. It is tender to palpation. Mariza wound is clear. Subjective Subjective Mr. Gutierrez is a 68-year-old diabetic male presenting to the wound care center today for follow-up evaluation of full-thickness wound to the lateral aspect of the right lower extremity with TheraSkin application. He is also being evaluated for a heel blister as well as sacral wound by the nurse practitioner. He denies any new onset of trauma. Denies constitutional symptoms. Other pedal complaints at this time. Objective Data Objective Data Vital Signs: Vital Signs Temp Pulse Resp BP O2 Del Method 97.9 F 78 18 121/66 H Room Air 03/22/24 15:03 03/22/24 15:03 03/22/24 15:03 03/22/24 15:03 03/22/24 15:03 Oxygen Delivery Method Room Air Weight: 157.85 kg Body Mass Index (BMI) 44.6 Physical Exam Narrative Vascular: DP and PT pulses are palpable to the right lower extremity. Nonpitting edema appreciated to the right lower extremity. Skin temperature gradient is warm to warm from proximal ankles to distal digit. No focal increase appreciated. Neurological: Light touch intact. Patient response to painful stimuli. Protective sensation is diminished. Dermatological: Full-thickness ulceration to the lateral aspect of the right leg measuring 21.0 x 5.9 x 0.1 cm. Wound base is under percent granular nature with evidence of sanguinous drainage. No malodor or probe to bone. No sign of infection. Evidence of stage I pressure sore appreciated to the left heel, stable no SOI No sign of infection. Excisional debridement of the lateral right leg ulceration down to including subcutaneous tissue with a number 7 mm dermal curette without incident. Predebridement measurement is 19.8 x 5.8 x 0.1 cm. Postdebridement measurement is 21.0 x 5.9 x 0.1 cm. Theraskin skin 116 cm? graft was applied to the right leg full-thickness ulceration with 100% use. Fifth application. The graft site was free and clear of any infection. The wound/skin graft substitute was dressed with nonadherent bandage secured in place with Dermabond and Steri-Strips followed by Bolster dressing and compression bandages to the right lower extremity. Musculoskeletal: Mild pain to palpation to full-thickness ulceration. No pain with calf compression. Debridement Note Debridement Note Debridement Free Text: Excisional debridement of the lateral right leg ulceration down to including subcutaneous tissue with a number 7 mm dermal curette without incident. Predebridement measurement is 19.8 x 5.8 x 0.1 cm. Postdebridement measurement is 21.0 x 5.9 x 0.1 cm. Theraskin skin 116 cm? graft was applied to the right leg full-thickness ulceration with 100% use. Fifth application. The graft site was free and clear of any infection. The wound/skin graft substitute was dressed with nonadherent bandage secured in place with Dermabond and Steri-Strips followed by Bolster dressing and compression bandages to the right lower extremity. Post-Debridement Measurements and Additional Note: Post-Debridement Measurements/Treatment WC - Nurse 1 - General Ulcer Assessment Start: 03/15/24 14:56 Freq: Status: Active Protocol: GALE Activity Type Activity Date Activity User E-sign Co-sign Detail Recorded Client Recorded Date Recorded By Document 03/15/24 14:56 CP [id number] 03/15/24 15:10 CP Document 03/15/24 15:36 KW [id number] 03/15/24 15:47 KW Document 03/22/24 15:03 KW [id number] 03/22/24 15:31 KW 03/15/24 03/15/24 03/22/24 14:56 15:36 15:03 WC - Today's Visit Information Type of service Follow-up Visit Follow-up Visit (Physician/ORTHOTIST (Physician/ORTHOTIST ) ) Arrival Mode Wheelchair Ambulatory Transfer Assist (Other) 1 Patient Identification Verified (Name & Yes Yes Yes ) Safety Precautions Fall Prevention Height and Weight Body Mass Index (BMI) 44.6 44.6 44.6 BMI Classification Obese Obese Obese Vital Signs Temperature (97.8 F-99.1 F) 97.1 F L 97.9 F Temperature Source Temporal Temporal Pulse Rate (60-100) 64 78 Pulse Location Monitor Monitor Respiratory Rate (12-18) 16 18 Respiratory rate source Observation Observation Oxygen Delivery Method Room Air Room Air Blood Pressure (90/60-120/80) 189/75 H 121/66 H Blood Pressure Mean (mm Hg) 113 84 Source Monitor Monitor Position Semi-Fowlers Sitting Blood Pressure Location Right Arm Left Arm History Since Last Visit- (Skip if this is Patient's initial visit) Have you changed medications since your No No last visit? Any new allergies or adverse reactions No No Had a fall/change in ADL's that may No No increase risk of falls Signs or symptoms of abuse and/or No No neglect since last visit Have you been in the hospital since your No No last visit? Has dressing in place as prescribed Yes Yes Has compression in place as prescribed Yes Yes Has offloadiing in place as prescribed N/A Experienced any changes in pain level or No management Left Footwear Regular Shoe Regular Shoe Right Footwear Regular Shoe Regular Shoe Pain Scale: 0-10 Numeric Is Patient Pain Free? Yes Yes No sacrum -Description Sharp,Burning, Aching - Nurse 1 - General Ulcer Measurement Start: 03/15/24 14:56 Freq: Status: Active Protocol: Activity Type Activity Date Activity User E-sign Co-sign Detail Recorded Client Recorded Date Recorded By Document 03/15/24 14:56 CP [id number] 03/15/24 15:10 CP Document 03/15/24 15:36 KW [id number] 03/15/24 15:47 KW Document 03/22/24 15:03 KW [id number] 03/22/24 15:31 KW 03/15/24 03/15/24 03/22/24 14:56 15:36 15:03 Wound Center Nurse 1 #7 LT HEEL -Current Size (cm) - Length 0.1 0.1 -Current Size (cm) - Width 0.1 0.1 -Current Size (cm) - Depth 0.1 0.1 -Total Square Cm 0.01 0.01 -Classification - Pressure Ulcer Suspected Deep Tissue Injury -Texture (Mariza-wound Skin Appearance) Assessed -Moisture (Mariza-wound Skin Appearance) Assessed -Color (Mariza-wound Skin Appearance) Assessed -Temperature (Mariza-wound Skin No Abnormality Appearance) (Pt Warm) -Tenderness on Palpation (Mariza-wound No Skin Appearance) -Ulcer Cleansing Soap and Water -Foul Odor after Cleansing No 6-right buttocks -Combined with other wound No -Current Size (cm) - Length 0.1 0.5 -Current Size (cm) - Width 0.1 0.5 -Current Size (cm) - Depth 0.1 0.1 -Total Square Cm 0.01 0.25 -Date of Last Picture (Recall this 03/22/24 field) -Epithelialization Small 1-33% -Tunneling No -Undermining/Tunneling No -Circular Undermining No -Exudate Amt Small Small -Exudate Type Serosanguineous Serosanguineous -Wound Margin Flat & Intact Distinct, Outline Attached -Granulation Amt Large (67-100%) -Granulation Quality [place],Red -Texture (Mariza-wound Skin Appearance) Assessed, Assessed Scarring -Moisture (Mariza-wound Skin Appearance) Assessed Assessed -Color (Mariza-wound Skin Appearance) Assessed, Assessed Erythema -Temperature (Mariza-wound Skin No Abnormality No Abnormality Appearance) (Pt Warm) (Pt Warm) -Tenderness on Palpation (Mariza-wound No No Skin Appearance) -Ulcer Cleansing Rinsed/ Rinsed/ Irrigated with Irrigated with Saline Saline -Foul Odor after Cleansing No No -Anesthetic Used 5% Lidocaine 5% Lidocaine Gel Gel #5 RT LAT LE POST-OP -Current Size (cm) - Length 22 21 -Current Size (cm) - Width 7.4 5.5 -Current Size (cm) - Depth 0.2 0.1 -Total Square Cm 162.8 115.5 -Date of Last Picture (Recall this 03/22/24 field) -Photo Taken No -Classification - Thickness Full Thickness without Exposed Support Structure -Exudate Amt Small -Exudate Type Serosanguineous Serous -Wound Margin Flat & Intact Distinct, Outline Attached -Granulation Amt Large (67-100%) Large (67-100%) -Granulation Quality Red Red -Necrosis Amt Small (1-33%) -Necrotic Tissue Type Adherent Slough -Structure Exposed N/A -Texture (Mariza-wound Skin Appearance) No Abnormality Assessed -Moisture (Mariza-wound Skin Appearance) No Abnormality Assessed -Color (Mariza-wound Skin Appearance) No Abnormality Assessed -Temperature (Mariza-wound Skin No Abnormality No Abnormality Appearance) (Pt Warm) (Pt Warm) -Tenderness on Palpation (Mariza-wound Yes No Skin Appearance) -Ulcer Cleansing Soap and Water Soap and Water -Foul Odor after Cleansing No No -Anesthetic Used Cetacaine 4% Lidocaine Solution Left Calf (cm) 42.4 Left Ankle (cm) 27.3 - Nurse 2 - General Ulcer CM Notes Start: 03/15/24 14:56 Freq: Status: Active Protocol: Activity Type Activity Date Activity User E-sign Co-sign Detail Recorded Client Recorded Date Recorded By Document 03/15/24 15:13 [id number] 03/15/24 15:27 Document 03/15/24 16:07 [id number] 03/15/24 16:14 Document 03/22/24 15:46 [id number] 03/22/24 15:51 Document 03/22/24 16:23 [id number] 03/22/24 16:25 03/15/24 03/15/24 03/22/24 15:13 16:07 15:46 Wound Center Nurse 2 #7 LT HEEL -Correct Patient No No -Correct Side, Site, Position No No -Correct Procedure No No -Procedure Performed No No -Wound/Ulcer Outcome Not Healed Not Healed 6-right buttocks -Time 16:07 -Correct Patient Yes -Correct Side, Site, Position Yes -Correct Procedure -Procedure Performed -Type of Procedure -Clinical Debridement -Tissue Removed -Post Debridement (cm) - Length -Post Debridement (cm) - Width -Post Debridement (cm) - Depth -Total Square (Post) (cm) -Area of Debridement (cm) - Length -Area of Debridement (cm) - Width -Total Square (Area) (cm) -Tunneling No -Undermining/Tunneling No -Circular Undermining No -Wound/Ulcer Outcome Not Healed -Ulcer Cleansing Rinsed/ Irrigated with Saline -Foul Odor after Cleansing No -Bioengineered Tissue No -Bleeding Controlled with -Treatment Response -Debridement - Subq, 1st 20sq cm -Wound Comment(s) very thin skin layer #5 RT LAT LE POST-OP -Time 15:47 -Correct Patient Yes Yes -Correct Side, Site, Position Yes Yes -Correct Procedure Yes Yes -Procedure Performed Yes Yes -Type of Procedure Debridement Debridement -Clinical Debridement Subcutaneous Subcutaneous -Tissue Removed Subcutaneous Subcutaneous -Post Debridement (cm) - Length 21.5 21.0 -Post Debridement (cm) - Width 7 5.9 -Post Debridement (cm) - Depth 0.1 0.1 -Total Square (Post) (cm) 150.5 123.90 -Area of Debridement (cm) - Length 21.5 21.0 -Area of Debridement (cm) - Width 7 5.9 -Total Square (Area) (cm) 150.5 123.90 -Tunneling No No -Undermining/Tunneling No No -Circular Undermining No No -Wound/Ulcer Outcome Not Healed Not Healed -Ulcer Cleansing Rinsed/ Rinsed/ Irrigated with Irrigated with Saline Saline -Foul Odor after Cleansing No No -Bioengineered Tissue Yes Yes -Type of Bioengineered Tissue Theraskin Theraskin -Expiration Date 03/22/28 03/22/28 -Product Lot Number [id number] -Percent Used 100 100 -Lot number of Saline Used [id number] -Bleeding Controlled with Pressure Pressure -Treatment Response Procedure Procedure Tolerated Well Tolerated Well -Offloading No No -Debridement - Subq, 1st 20sq cm No No -Apply Skin Sub - 1st 100 sq cm - Legs 1 1 -Apply Skin Sub - each addt'l 100 sq 1 1 cm - Legs -Theraskin - 103TSXL (116 SQ CM) (per 116 116 sq cm) Pain Scale: 0-10 Numeric Is Patient Pain Free? Yes Yes Yes 03/22/24 16:23 Wound Center Nurse 2 #7 LT HEEL -Correct Patient -Correct Side, Site, Position -Correct Procedure -Procedure Performed -Wound/Ulcer Outcome 6-right buttocks -Time 16:24 -Correct Patient Yes -Correct Side, Site, Position Yes -Correct Procedure Yes -Procedure Performed Yes -Type of Procedure Debridement -Clinical Debridement Subcutaneous -Tissue Removed Subcutaneous -Post Debridement (cm) - Length 0.8 -Post Debridement (cm) - Width 0.5 -Post Debridement (cm) - Depth 0.1 -Total Square (Post) (cm) 0.40 -Area of Debridement (cm) - Length 0.8 -Area of Debridement (cm) - Width 0.5 -Total Square (Area) (cm) 0.40 -Tunneling No -Undermining/Tunneling No -Circular Undermining No -Wound/Ulcer Outcome Not Healed -Ulcer Cleansing -Foul Odor after Cleansing No -Bioengineered Tissue No -Bleeding Controlled with Pressure -Treatment Response Procedure Tolerated Well -Debridement - Subq, 1st 20sq cm Yes -Wound Comment(s) #5 RT LAT LE POST-OP -Time -Correct Patient -Correct Side, Site, Position -Correct Procedure -Procedure Performed -Type of Procedure -Clinical Debridement -Tissue Removed -Post Debridement (cm) - Length -Post Debridement (cm) - Width -Post Debridement (cm) - Depth -Total Square (Post) (cm) -Area of Debridement (cm) - Length -Area of Debridement (cm) - Width -Total Square (Area) (cm) -Tunneling -Undermining/Tunneling -Circular Undermining -Wound/Ulcer Outcome -Ulcer Cleansing -Foul Odor after Cleansing -Bioengineered Tissue -Type of Bioengineered Tissue -Expiration Date -Product Lot Number -Percent Used -Lot number of Saline Used -Bleeding Controlled with -Treatment Response -Offloading -Debridement - Subq, 1st 20sq cm -Apply Skin Sub - 1st 100 sq cm - Legs -Apply Skin Sub - each addt'l 100 sq cm - Legs -Theraskin - 103TSXL (116 SQ CM) (per sq cm) Pain Scale: 0-10 Numeric Is Patient Pain Free? Yes WC - Nurse 3 - General Ulcer D/C NN Start: 03/15/24 14:56 Freq: Status: Active Protocol: Activity Type Activity Date Activity User E-sign Co-sign Detail Recorded Client Recorded Date Recorded By Document 03/15/24 15:35 KW [id number] 03/15/24 15:36 Document 03/15/24 16:20 [facility] [id number] 03/15/24 16:21 [facility] Document 03/22/24 15:58 [facility] [id number] 03/22/24 15:59 [facility] Document 03/22/24 16:30 [id number] 03/22/24 16:31 KW 03/15/24 03/15/24 03/22/24 15:35 16:20 15:58 Wound Care Center Nurse 3 #7 LT HEEL -Other Dressing betadine betadine gauze; -Primary Dressing Covered/Secured with Dry Gauze & Dry Gauze & Roll Gauze, Roll Gauze, Secured with Secured with Tape Tape -Other Covering per dl ply cutter 6-right buttocks -Ulcer Cleansing Rinsed/ Irrigated with Saline -Foul Odor after Cleansing No -Primary Dressing Applied Mepilex Border -Other Dressing hydrogel -Mepilex Border 1 #5 RT LAT LE POST-OP -Other Dressing theraskin; abd pads, kerlix -Primary Dressing Covered/Secured with Dry Gauze & Dry Gauze & Roll Gauze, Roll Gauze, Secured with Secured with Tape Tape -Other Covering drsg per dl ply cutter Right -Compression Wrap Celso Wrap Left -Compression Wrap Celso Wrap BLE -Compression Wrap Celso Wrap Treatment Response Procedure Procedure Tolerated Well Tolerated Well Pain Scale: 0-10 Numeric Is Patient Pain Free? Yes Yes Yes WC - Visit Discharge Discharge Condition Stable Stable Stable Ambulatory Status Wheelchair Wheelchair Wheelchair Transportation ecf ecf Medication Reconcilliation completed & No provided to patient/care provider Clinical Summary of Care Provided Yes Facility Type Name [facility] Facility 03/22/24 16:30 Wound Care Center Nurse 3 #7 LT HEEL -Other Dressing -Primary Dressing Covered/Secured with -Other Covering 6-right buttocks -Ulcer Cleansing -Foul Odor after Cleansing -Primary Dressing Applied C Hydrogel ($), Mepilex Border, NonAdherent Contact Layer -Other Dressing -Mepilex Border 1 #5 RT LAT LE POST-OP -Other Dressing -Primary Dressing Covered/Secured with -Other Covering Right -Compression Wrap Left -Compression Wrap BLE -Compression Wrap Treatment Response Pain Scale: 0-10 Numeric Is Patient Pain Free? Yes WC - Visit Discharge Discharge Condition Ambulatory Status Transportation Medication Reconcilliation completed & provided to patient/care provider Clinical Summary of Care Provided Facility Type Assessment/Plan Assessment/Plan (1) Non-pressure chronic ulcer of other part of right lower leg with fat layer exposed: CODE(S): L97.812 - Non-pressure chronic ulcer of other part of right lower leg with fat layer exposed PLAN: Patient was examined and evaluated. All findings were discussed with the patient. All questions were answered to the patient's satisfaction. Excisional debridement of the lateral right leg ulceration down to including subcutaneous tissue with a number 7 mm dermal curette without incident. Predebridement measurement is 19.8 x 5.8 x 0.1 cm. Postdebridement measurement is 21.0 x 5.9 x 0.1 cm. Theraskin skin 116 cm? graft was applied to the right leg full-thickness ulceration with 100% use. Fifth application. The graft site was free and clear of any infection. The wound/skin graft substitute was dressed with nonadherent bandage secured in place with Dermabond and Steri-Strips followed by Bolster dressing and compression bandages to the right lower extremity. Left heel was dressed with Betadine paint dry sterile dressing and compression wrap. Patient will be seen by nurse practitioner for sacral wound. Patient states that his insurance is running out at the SNF and will be returning home. Educated the patient that when he gets a date of discharge we will need to arrange transportation so the patient can continue to be seen weekly at the wound care center for the sacral wound and right leg ulceration and graft. Follow-up at the wound care center with Dr. Shannon in 1 week. (2) Blister of left heel: CODE(S): S90.822A - Blister (nonthermal), left foot, initial encounter QUALIFIERS: Encounter type: subsequent encounter Qualified Code(s): S90.822D - Blister (nonthermal), left foot, subsequent encounter (3) Other specified peripheral vascular diseases: CODE(S): I73.89 - Other specified peripheral vascular diseases
--- NOTE | 2024-03-22 16:52 | PCM.WC.PN ---
History of Present Illness Date of Service: 03/22/24 Chief Complaint: Right buttock ulceration History of Wound: This is a 68-year-old morbidly obese diabetic male who sees Dr. Shannon for 3 large ulcerations on the right lateral calf. He is a resident of [facility] in [place], [place]. He has a history of bilateral lower extremity deep vein thrombosis, and a venous duplex examination performed on October 22, 2023, revealed chronic changes in the right lower extremity deep venous system, with a normal superficial venous system. Management of the patient's wound had been by means of the [facility], Dr. Reyna, from [place], [place]. Approximately 1 week prior to presentation, the patient underwent placement of a left upper extremity PICC catheter and has been receiving vancomycin and Zosyn intravenously. The patient had been on chronic systemic anticoagulation with Eliquis until recently, which was discontinued as a result of his recent gastrointestinal bleeding. He developed a right buttocks (ischial area) pressure sore over the past month. He denies sleeping on low air loss mattress because he is unable to move it the bed and he finds it very difficult to move and to breath. He wears CPAP at night that he states he must sleep on his back when wearing. He admits to sitting for long periods of time in his wheel chair. He sits on a cushion and a pillow. He states they have been putting a barrier cream on the area and he believes it is making it worse. He states it is painful to touch and to sit on. Progress of Wound: Right buttocks pressure ulcer is superficial with very dry scabbing surrounding the edges. Mariza wound is clear Objective Data Objective Data Vital Signs: Vital Signs Temp Pulse Resp BP O2 Del Method 97.9 F 78 18 121/66 H Room Air 03/22/24 15:03 03/22/24 15:03 03/22/24 15:03 03/22/24 15:03 03/22/24 15:03 Oxygen Delivery Method Room Air Weight: 348 lb Body Mass Index (BMI) 44.6 Charges/Coding Procedures Integumentary 111xxx-113xx: 38852 Gisell subq tissue 20 sq cm/< Debridement Note Debridement Note Wound debrided: buttocks Laterality: Right Wound Grade/Stage: stageII Type of Debridement: Excisional debridement Anesthesia Used: 5% Lidocaine Gel Depth: Down to and including healthy tissue Percentage of wound debrided: 100 Instrument Used: 3mm curette Tissue Removed: Non viable tissue and slough Severity: Limited To Skin Breakdown Amount of bleeding with debridement: Mild Bleeding Controlled with: Pressure Patient tolerated procedure: Patient tolerated procedure well Post-Debridement Measurements and Additional Note: Post-Debridement Measurements/Treatment WC - Nurse 1 - General Ulcer Assessment Start: 03/15/24 14:56 Freq: Status: Active Protocol: GALE Activity Type Activity Date Activity User E-sign Co-sign Detail Recorded Client Recorded Date Recorded By Document 03/15/24 14:56 CP [id number] 03/15/24 15:10 CP Document 03/15/24 15:36 KW [id number] 03/15/24 15:47 KW Document 03/22/24 15:03 KW [id number] 03/22/24 15:31 KW 03/15/24 03/15/24 03/22/24 14:56 15:36 15:03 WC - Today's Visit Information Type of service Follow-up Visit Follow-up Visit (Physician/DRESS DESIGNER (Physician/DRESS DESIGNER ) ) Arrival Mode Wheelchair Ambulatory Transfer Assist (Other) 1 Patient Identification Verified (Name & Yes Yes Yes ) Safety Precautions Fall Prevention Height and Weight Body Mass Index (BMI) 44.6 44.6 44.6 BMI Classification Obese Obese Obese Vital Signs Temperature (97.8 F-99.1 F) 97.1 F L 97.9 F Temperature Source Temporal Temporal Pulse Rate (60-100) 64 78 Pulse Location Monitor Monitor Respiratory Rate (12-18) 16 18 Respiratory rate source Observation Observation Oxygen Delivery Method Room Air Room Air Blood Pressure (90/60-120/80) 189/75 H 121/66 H Blood Pressure Mean (mm Hg) 113 84 Source Monitor Monitor Position Semi-Fowlers Sitting Blood Pressure Location Right Arm Left Arm History Since Last Visit- (Skip if this is Patient's initial visit) Have you changed medications since your No No last visit? Any new allergies or adverse reactions No No Had a fall/change in ADL's that may No No increase risk of falls Signs or symptoms of abuse and/or No No neglect since last visit Have you been in the hospital since your No No last visit? Has dressing in place as prescribed Yes Yes Has compression in place as prescribed Yes Yes Has offloadiing in place as prescribed N/A Experienced any changes in pain level or No management Left Footwear Regular Shoe Regular Shoe Right Footwear Regular Shoe Regular Shoe Pain Scale: 0-10 Numeric Is Patient Pain Free? Yes Yes No sacrum -Description Sharp,Burning, Aching WC - Nurse 1 - General Ulcer Measurement Start: 03/15/24 14:56 Freq: Status: Active Protocol: Activity Type Activity Date Activity User E-sign Co-sign Detail Recorded Client Recorded Date Recorded By Document 03/15/24 14:56 CP [id number] 03/15/24 15:10 CP Document 03/15/24 15:36 KW [id number] 03/15/24 15:47 KW Document 03/22/24 15:03 KW [id number] 03/22/24 15:31 KW 03/15/24 03/15/24 03/22/24 14:56 15:36 15:03 Wound Center Nurse 1 #7 LT HEEL -Current Size (cm) - Length 0.1 0.1 -Current Size (cm) - Width 0.1 0.1 -Current Size (cm) - Depth 0.1 0.1 -Total Square Cm 0.01 0.01 -Classification - Pressure Ulcer Suspected Deep Tissue Injury -Texture (Mariza-wound Skin Appearance) Assessed -Moisture (Mariza-wound Skin Appearance) Assessed -Color (Mariza-wound Skin Appearance) Assessed -Temperature (Mariza-wound Skin No Abnormality Appearance) (Pt Warm) -Tenderness on Palpation (Mariza-wound No Skin Appearance) -Ulcer Cleansing Soap and Water -Foul Odor after Cleansing No 6-right buttocks -Combined with other wound No -Current Size (cm) - Length 0.1 0.5 -Current Size (cm) - Width 0.1 0.5 -Current Size (cm) - Depth 0.1 0.1 -Total Square Cm 0.01 0.25 -Date of Last Picture (Recall this 03/22/24 field) -Epithelialization Small 1-33% -Tunneling No -Undermining/Tunneling No -Circular Undermining No -Exudate Amt Small Small -Exudate Type Serosanguineous Serosanguineous -Wound Margin Flat & Intact Distinct, Outline Attached -Granulation Amt Large (67-100%) -Granulation Quality [place],Red -Texture (Mariza-wound Skin Appearance) Assessed, Assessed Scarring -Moisture (Mariza-wound Skin Appearance) Assessed Assessed -Color (Mariza-wound Skin Appearance) Assessed, Assessed Erythema -Temperature (Mariza-wound Skin No Abnormality No Abnormality Appearance) (Pt Warm) (Pt Warm) -Tenderness on Palpation (Mariza-wound No No Skin Appearance) -Ulcer Cleansing Rinsed/ Rinsed/ Irrigated with Irrigated with Saline Saline -Foul Odor after Cleansing No No -Anesthetic Used 5% Lidocaine 5% Lidocaine Gel Gel #5 RT LAT LE POST-OP -Current Size (cm) - Length 22 21 -Current Size (cm) - Width 7.4 5.5 -Current Size (cm) - Depth 0.2 0.1 -Total Square Cm 162.8 115.5 -Date of Last Picture (Recall this 03/22/24 field) -Photo Taken No -Classification - Thickness Full Thickness without Exposed Support Structure -Exudate Amt Small -Exudate Type Serosanguineous Serous -Wound Margin Flat & Intact Distinct, Outline Attached -Granulation Amt Large (67-100%) Large (67-100%) -Granulation Quality Red Red -Necrosis Amt Small (1-33%) -Necrotic Tissue Type Adherent Slough -Structure Exposed N/A -Texture (Mariza-wound Skin Appearance) No Abnormality Assessed -Moisture (Mariza-wound Skin Appearance) No Abnormality Assessed -Color (Mariza-wound Skin Appearance) No Abnormality Assessed -Temperature (Mariza-wound Skin No Abnormality No Abnormality Appearance) (Pt Warm) (Pt Warm) -Tenderness on Palpation (Mariza-wound Yes No Skin Appearance) -Ulcer Cleansing Soap and Water Soap and Water -Foul Odor after Cleansing No No -Anesthetic Used Cetacaine 4% Lidocaine Solution Left Calf (cm) 42.4 Left Ankle (cm) 27.3 WC - Nurse 2 - General Ulcer CM Notes Start: 03/15/24 14:56 Freq: Status: Active Protocol: Activity Type Activity Date Activity User E-sign Co-sign Detail Recorded Client Recorded Date Recorded By Document 03/15/24 15:13 [id number] 03/15/24 15:27 Document 03/15/24 16:07 [id number] 03/15/24 16:14 Document 03/22/24 15:46 [id number] 03/22/24 15:51 Document 03/22/24 16:23 [id number] 03/22/24 16:25 GM 03/15/24 03/15/24 03/22/24 15:13 16:07 15:46 Wound Center Nurse 2 #7 LT HEEL -Correct Patient No No -Correct Side, Site, Position No No -Correct Procedure No No -Procedure Performed No No -Wound/Ulcer Outcome Not Healed Not Healed 6-right buttocks -Time 16:07 -Correct Patient Yes -Correct Side, Site, Position Yes -Correct Procedure -Procedure Performed -Type of Procedure -Clinical Debridement -Tissue Removed -Post Debridement (cm) - Length -Post Debridement (cm) - Width -Post Debridement (cm) - Depth -Total Square (Post) (cm) -Area of Debridement (cm) - Length -Area of Debridement (cm) - Width -Total Square (Area) (cm) -Tunneling No -Undermining/Tunneling No -Circular Undermining No -Wound/Ulcer Outcome Not Healed -Ulcer Cleansing Rinsed/ Irrigated with Saline -Foul Odor after Cleansing No -Bioengineered Tissue No -Bleeding Controlled with -Treatment Response -Debridement - Subq, 1st 20sq cm -Wound Comment(s) very thin skin layer #5 RT LAT LE POST-OP -Time 15:47 -Correct Patient Yes Yes -Correct Side, Site, Position Yes Yes -Correct Procedure Yes Yes -Procedure Performed Yes Yes -Type of Procedure Debridement Debridement -Clinical Debridement Subcutaneous Subcutaneous -Tissue Removed Subcutaneous Subcutaneous -Post Debridement (cm) - Length 21.5 21.0 -Post Debridement (cm) - Width 7 5.9 -Post Debridement (cm) - Depth 0.1 0.1 -Total Square (Post) (cm) 150.5 123.90 -Area of Debridement (cm) - Length 21.5 21.0 -Area of Debridement (cm) - Width 7 5.9 -Total Square (Area) (cm) 150.5 123.90 -Tunneling No No -Undermining/Tunneling No No -Circular Undermining No No -Wound/Ulcer Outcome Not Healed Not Healed -Ulcer Cleansing Rinsed/ Rinsed/ Irrigated with Irrigated with Saline Saline -Foul Odor after Cleansing No No -Bioengineered Tissue Yes Yes -Type of Bioengineered Tissue Theraskin Theraskin -Expiration Date 03/22/28 03/22/28 -Product Lot Number [id number] -Percent Used 100 100 -Lot number of Saline Used [id number] -Bleeding Controlled with Pressure Pressure -Treatment Response Procedure Procedure Tolerated Well Tolerated Well -Offloading No No -Debridement - Subq, 1st 20sq cm No No -Apply Skin Sub - 1st 100 sq cm - Legs 1 1 -Apply Skin Sub - each addt'l 100 sq 1 1 cm - Legs -Theraskin - 103TSXL (116 SQ CM) (per 116 116 sq cm) Pain Scale: 0-10 Numeric Is Patient Pain Free? Yes Yes Yes 03/22/24 16:23 Wound Center Nurse 2 #7 LT HEEL -Correct Patient -Correct Side, Site, Position -Correct Procedure -Procedure Performed -Wound/Ulcer Outcome 6-right buttocks -Time 16:24 -Correct Patient Yes -Correct Side, Site, Position Yes -Correct Procedure Yes -Procedure Performed Yes -Type of Procedure Debridement -Clinical Debridement Subcutaneous -Tissue Removed Subcutaneous -Post Debridement (cm) - Length 0.8 -Post Debridement (cm) - Width 0.5 -Post Debridement (cm) - Depth 0.1 -Total Square (Post) (cm) 0.40 -Area of Debridement (cm) - Length 0.8 -Area of Debridement (cm) - Width 0.5 -Total Square (Area) (cm) 0.40 -Tunneling No -Undermining/Tunneling No -Circular Undermining No -Wound/Ulcer Outcome Not Healed -Ulcer Cleansing -Foul Odor after Cleansing No -Bioengineered Tissue No -Bleeding Controlled with Pressure -Treatment Response Procedure Tolerated Well -Debridement - Subq, 1st 20sq cm Yes -Wound Comment(s) #5 RT LAT LE POST-OP -Time -Correct Patient -Correct Side, Site, Position -Correct Procedure -Procedure Performed -Type of Procedure -Clinical Debridement -Tissue Removed -Post Debridement (cm) - Length -Post Debridement (cm) - Width -Post Debridement (cm) - Depth -Total Square (Post) (cm) -Area of Debridement (cm) - Length -Area of Debridement (cm) - Width -Total Square (Area) (cm) -Tunneling -Undermining/Tunneling -Circular Undermining -Wound/Ulcer Outcome -Ulcer Cleansing -Foul Odor after Cleansing -Bioengineered Tissue -Type of Bioengineered Tissue -Expiration Date -Product Lot Number -Percent Used -Lot number of Saline Used -Bleeding Controlled with -Treatment Response -Offloading -Debridement - Subq, 1st 20sq cm -Apply Skin Sub - 1st 100 sq cm - Legs -Apply Skin Sub - each addt'l 100 sq cm - Legs -Theraskin - 103TSXL (116 SQ CM) (per sq cm) Pain Scale: 0-10 Numeric Is Patient Pain Free? Yes - Nurse 3 - General Ulcer D/C NN Start: 03/15/24 14:56 Freq: Status: Active Protocol: Activity Type Activity Date Activity User E-sign Co-sign Detail Recorded Client Recorded Date Recorded By Document 03/15/24 15:35 KW [id number] 03/15/24 15:36 KW Document 03/15/24 16:20 BM [id number] 03/15/24 16:21 BM Document 03/22/24 15:58 BM [id number] 03/22/24 15:59 [facility] Document 03/22/24 16:30 KW [id number] 03/22/24 16:31 KW 03/15/24 03/15/24 03/22/24 15:35 16:20 15:58 Wound Care Center Nurse 3 #7 LT HEEL -Other Dressing betadine betadine gauze; -Primary Dressing Covered/Secured with Dry Gauze & Dry Gauze & Roll Gauze, Roll Gauze, Secured with Secured with Tape Tape -Other Covering per dl pharmaceutical laboratory technician 6-right buttocks -Ulcer Cleansing Rinsed/ Irrigated with Saline -Foul Odor after Cleansing No -Primary Dressing Applied Mepilex Border -Other Dressing hydrogel -Mepilex Border 1 #5 RT LAT LE POST-OP -Other Dressing theraskin; abd pads, kerlix -Primary Dressing Covered/Secured with Dry Gauze & Dry Gauze & Roll Gauze, Roll Gauze, Secured with Secured with Tape Tape -Other Covering drsg per dl pharmaceutical laboratory technician Right -Compression Wrap [place] Wrap Left -Compression Wrap [place] Wrap BLE -Compression Wrap [place] Wrap Treatment Response Procedure Procedure Tolerated Well Tolerated Well Pain Scale: 0-10 Numeric Is Patient Pain Free? Yes Yes Yes WC - Visit Discharge Discharge Condition Stable Stable Stable Ambulatory Status Wheelchair Wheelchair Wheelchair Transportation ecf ecf Medication Reconcilliation completed & No provided to patient/care provider Clinical Summary of Care Provided Yes Facility Type [employer] [facility] Facility 03/22/24 16:30 Wound Care Center Nurse 3 #7 LT HEEL -Other Dressing -Primary Dressing Covered/Secured with -Other Covering 6-right buttocks -Ulcer Cleansing -Foul Odor after Cleansing -Primary Dressing Applied C Hydrogel ($), Mepilex Border, NonAdherent Contact Layer -Other Dressing -Mepilex Border 1 #5 RT LAT LE POST-OP -Other Dressing -Primary Dressing Covered/Secured with -Other Covering Right -Compression Wrap Left -Compression Wrap BLE -Compression Wrap Treatment Response Pain Scale: 0-10 Numeric Is Patient Pain Free? Yes WC - Visit Discharge Discharge Condition Ambulatory Status Transportation Medication Reconcilliation completed & provided to patient/care provider Clinical Summary of Care Provided Facility Type Assessment/Plan Assessment/Plan (1) Stage II pressure ulcer of right buttock: CODE(S): L89.312 - Pressure ulcer of right buttock, stage 2 PLAN: Plan Right buttock ulcer evaluated today. Encouraged off loading as much as possible. Encouraged standing and ambulating with assistance. Wound care - Collagen hydrogel topped with adaptic and covered with Mepilex/[place] SAP/Foam bordered dressing daily and as needed. Wash the area with soap and water with dressing changes. Continue to be seen by Dr. Shannon for his foot ulcers. Follow up with me in one week.
--- NOTE | 2024-03-23 08:54 | WC ---
PHOTO 03/22/24 RIGHT LAT/POST LEG
[2024-03-29 14:09] VITALS: BP 147/74; PULSE 58; RESP 18; TEMP 36.1; BMI 44.6
--- NOTE | 2024-03-29 15:36 | PN.PCM_ITS ---
History of Present Illness Date of Service: 03/29/24 Chief Complaint: Right buttock ulceration History of Wound: This is a 68-year-old morbidly obese diabetic male who sees Dr. Shannon for 3 large ulcerations on the right lateral calf. He is a resident of [facility] in [place], [place]. He has a history of bilateral lower extremity deep vein thrombosis, and a venous duplex examination performed on October 22, 2023, revealed chronic changes in the right lower extremity deep venous system, with a normal superficial venous system. Management of the patient's wound had been by means of the [facility] Computer Aided Design Operator, Dr. Reyna, from [place], [place]. Approximately 1 week prior to presentation, the patient underwent placement of a left upper extremity PICC catheter and has been receiving vancomycin and Zosyn intravenously. The patient had been on chronic systemic anticoagulation with Eliquis until recently, which was discontinued as a result of his recent gastrointestinal bleeding. He developed a right buttocks (ischial area) pressure sore over the past month. He denies sleeping on low air loss mattress because he is unable to move it the bed and he finds it very difficult to move and to breath. He wears CPAP at night that he states he must sleep on his back when wearing. He admits to sitting for long periods of time in his wheel chair. He sits on a cushion and a pillow. He states they have been putting a barrier cream on the area and he believes it is making it worse. He states it is painful to touch and to sit on. Progress of Wound: Right buttocks pressure ulcer is superficial with very dry scabbing surrounding the edges. Mariza wound is clear Subjective Subjective Mr. Gutierrez is a 68-year-old diabetic male presenting to wound care center today for follow-up evaluation of full-thickness wound to the lateral aspect of right lower extremity and left heel wound. [facility] He denies any new ulceration. Denies any pain to bilateral extremity. Denies trauma. Denies constitutional symptoms. No other pedal complaints at this time. Objective Data Objective Data Vital Signs: Vital Signs Temp Pulse Resp BP O2 Del Method 96.9 F L 58 L 18 147/74 H Room Air 03/29/24 14:09 03/29/24 14:03/29/24 14:09 03/29/24 14:09 03/29/24 14:09 Oxygen Delivery Method Room Air Weight: 157.85 kg Body Mass Index (BMI) 44.6 Physical Exam Narrative Vascular: DP and PT pulses are palpable to the right lower extremity. Nonpitting edema appreciated to the right lower extremity. Skin temperature gradient is warm to warm from proximal ankles to distal digit. No focal increase appreciated. Neurological: Light touch intact. Patient response to painful stimuli. P rotective sensation is diminished. Dermatological: Full-thickness ulceration to the lateral aspect of the right leg measuring 20.2 x 5.3 x 0.1 cm. Wound base is granular. No malodor or probe to bone. No sign of infection. Evidence of stage I pressure sore appreciated to the left heel measuring 1.5 x 1.7 x 0.1 cm. Excisional debridement of the lateral right leg ulceration down to including sub cutaneous tissue with a number 7 mm dermal curette without incident. Predebridement measurement is 20.0 x 5.0 x 0.1 cm. Postdebridement measurement is 20.2 x 5.3 x 0.1 cm. Excisional debridement of the left heel ulceration down to and including subcutaneous tissue with a number 3 mm dermal curette without incident. Predebridement measurement is sanguinous crust. Postdebridement measurement is 1.5 x 1.7 x 0.1 cm. Theraskin skin 116 cm? graft was applied to the right leg full-thickness ulceration with 100% use. 6th application. The graft site was free and clear of any infection. The wound/skin graft substitute was dressed with nonadherent bandage secured in place with Dermabond and Steri-Strips followed by Bolster dressing and compression bandages to the right lower extremity. Musculoskeletal: Mild pain to palpation to full-thickness ulceration. No pain with calf compression. Debridement Note Debridement Note Debridement Free Text: Excisional debridement of the lateral right leg ulceration down to including subcutaneous tissue with a number 7 mm dermal curette without incident. Predebridement measurement is 20.0 x 5.0 x 0.1 cm. Postdebridement measurement is 20.2 x 5.3 x 0.1 cm. Excisional debridement of the left heel ulceration down to and including subcutaneous tissue with a number 3 mm dermal curette without incident. Predebridement measurement is sanguinous crust. Postdebridement measurement is 1.5 x 1.7 x 0.1 cm. Theraskin skin 116 cm? graft was applied to the right leg full-thickness ulceration with 100% use. 6th application. The graft site was free and clear of any infection. The wound/skin graft substitute was dressed with nonadherent bandage secured in place with Dermabond and Steri-Strips followed by Bolster dressing and compression bandages to the right lower extremity. Post-Debridement Measurements and Additional Note: Post-Debridement Measurements/Treatment WC - Nurse 1 - General Ulcer Assessment Start: 03/15/24 14:56 Freq: Status: Active Protocol: WC.LOWEXT Activity Type Activity Date Activity User E-sign Co-sign Detail Recorded Client Recorded Date Recorded By Document 03/15/24 14:56 CP [id number] 03/15/24 15:10 CP Document 03/15/24 15:36 KW [id number] 03/15/24 15:47 KW Document 03/22/24 15:03 KW [id number] 03/22/24 15:31 KW Document 03/29/24 14:09 KW [id number] 03/29/24 14:33 KW 03/15/24 03/15/24 03/22/24 14:56 15:36 15:03 WC - Today's Visit Information Type of service Follow-up Visit Follow-up Visit (Physician/JAVA TECHNICAL MANAGER (Physician/JAVA TECHNICAL MANAGER ) ) Arrival Mode Wheelchair Ambulatory Transfer Assist (Other) 1 Patient Identification Verified (Name & Yes Yes Yes ) Safety Precautions Fall Prevention Height and Weight Body Mass Index (BMI) 44.6 44.6 44.6 BMI Classification Obese Obese Obese Vital Signs Temperature (97.8 F-99.1 F) 97.1 F L 97.9 F Temperature Source Temporal Temporal Pulse Rate (60-100) 64 78 Pulse Location Monitor Monitor Respiratory Rate (12-18) 16 18 Respiratory rate source Observation Observation Oxygen Delivery Method Room Air Room Air Blood Pressure (90/60-120/80) 189/75 H 121/66 H Blood Pressure Mean (mm Hg) 113 84 Source Monitor Monitor Position Semi-Fowlers Sitting Blood Pressure Location Right Arm Left Arm History Since Last Visit- (Skip if this is Patient's initial visit) Have you changed medications since your No No last visit? Any new allergies or adverse reactions No No Had a fall/change in ADL's that may No No increase risk of falls Signs or symptoms of abuse and/or No No neglect since last visit Have you been in the hospital since your No No last visit? Has dressing in place as prescribed Yes Yes Has compression in place as prescribed Yes Yes Has offloadiing in place as prescribed N/A Experienced any changes in pain level or No management Left Footwear Regular Shoe Regular Shoe Right Footwear Regular Shoe Regular Shoe Pain Scale: 0-10 Numeric Is Patient Pain Free? Yes Yes No sacrum -Description Sharp,Burning, Aching 03/29/24 14:09 - Today's Visit Information Type of service Follow-up Visit (Physician/JAVA TECHNICAL MANAGER ) Arrival Mode Ambulatory Transfer Assist (Other) Patient Identification Verified (Name & Yes ) Safety Precautions Height and Weight Body Mass Index (BMI) 44.6 BMI Classification Obese Vital Signs Temperature (97.8 F-99.1 F) 96.9 F L Temperature Source Temporal Pulse Rate (60-100) 58 L Pulse Location Monitor Respiratory Rate (12-18) 18 Respiratory rate source Observation Oxygen Delivery Method Room Air Blood Pressure (90/60-120/80) 147/74 H Blood Pressure Mean (mm Hg) 98 Source Monitor Position Semi-Fowlers Blood Pressure Location Left Arm History Since Last Visit- (Skip if this is Patient's initial visit) Have you changed medications since your No last visit? Any new allergies or adverse reactions No Had a fall/change in ADL's that may No increase risk of falls Signs or symptoms of abuse and/or No neglect since last visit Have you been in the hospital since your No last visit? Has dressing in place as prescribed Yes Has compression in place as prescribed Yes Has offloadiing in place as prescribed N/A Experienced any changes in pain level or No management Left Footwear Regular Shoe Right Footwear Regular Shoe Pain Scale: 0-10 Numeric Is Patient Pain Free? Yes sacrum -Description - Nurse 1 - General Ulcer Measurement Start: 03/15/24 14:56 Freq: Status: Active Protocol: Activity Type Activity Date Activity User E-sign Co-sign Detail Recorded Client Recorded Date Recorded By Document 03/15/24 14:56 CP [id number] 03/15/24 15:10 CP Document 03/15/24 15:36 KW [id number] 03/15/24 15:47 KW Document 03/22/24 15:03 KW [id number] 03/22/24 15:31 KW Document 03/29/24 14:09 KW [id number] 03/29/24 14:33 KW 03/15/24 03/15/24 03/22/24 14:56 15:36 15:03 Wound Center Nurse 1 #7 LT HEEL -Current Size (cm) - Length 0.1 0.1 -Current Size (cm) - Width 0.1 0.1 -Current Size (cm) - Depth 0.1 0.1 -Total Square Cm 0.01 0.01 -Classification - Pressure Ulcer Suspected Deep Tissue Injury -Exudate Amt -Wound Margin -Necrosis Amt -Necrotic Tissue Type -Texture (Mariza-wound Skin Appearance) Assessed -Moisture (Mariza-wound Skin Appearance) Assessed -Color (Mariza-wound Skin Appearance) Assessed -Temperature (Mariza-wound Skin No Abnormality Appearance) (Pt Warm) -Tenderness on Palpation (Mariza-wound No Skin Appearance) -Ulcer Cleansing Soap and Water -Foul Odor after Cleansing No -Anesthetic Used 6-right buttocks -Combined with other wound No -Current Size (cm) - Length 0.1 0.5 -Current Size (cm) - Width 0.1 0.5 -Current Size (cm) - Depth 0.1 0.1 -Total Square Cm 0.01 0.25 -Date of Last Picture (Recall this 03/22/24 field) -Epithelialization Small 1-33% -Tunneling No -Undermining/Tunneling No -Circular Undermining No -Exudate Amt Small Small -Exudate Type Serosanguineous Serosanguineous -Wound Margin Flat & Intact Distinct, Outline Attached -Granulation Amt Large (67-100%) -Granulation Quality Octa,Red -Texture (Mariza-wound Skin Appearance) Assessed, Assessed Scarring -Moisture (Mariza-wound Skin Appearance) Assessed Assessed -Color (Mariza-wound Skin Appearance) Assessed, Assessed Erythema -Temperature (Mariza-wound Skin No Abnormality No Abnormality Appearance) (Pt Warm) (Pt Warm) -Tenderness on Palpation (Mariza-wound No No Skin Appearance) -Ulcer Cleansing Rinsed/ Rinsed/ Irrigated with Irrigated with Saline Saline -Foul Odor after Cleansing No No -Anesthetic Used 5% Lidocaine 5% Lidocaine Gel Gel #5 RT LAT LE POST-OP -Current Size (cm) - Length 22 21 -Current Size (cm) - Width 7.4 5.5 -Current Size (cm) - Depth 0.2 0.1 -Total Square Cm 162.8 115.5 -Date of Last Picture (Recall this 03/22/24 field) -Photo Taken No -Classification - Thickness Full Thickness without Exposed Support Structure -Exudate Amt Small -Exudate Type Serosanguineous Serous -Wound Margin Flat & Intact Distinct, Outline Attached -Granulation Amt Large (67-100%) Large (67-100%) -Granulation Quality Red Red -Necrosis Amt Small (1-33%) -Necrotic Tissue Type Adherent Slough -Structure Exposed N/A -Texture (Mariza-wound Skin Appearance) No Abnormality Assessed -Moisture (Mariza-wound Skin Appearance) No Abnormality Assessed -Color (Mariza-wound Skin Appearance) No Abnormality Assessed -Temperature (Mariza-wound Skin No Abnormality No Abnormality Appearance) (Pt Warm) (Pt Warm) -Tenderness on Palpation (Mariza-wound Yes No Skin Appearance) -Ulcer Cleansing Soap and Water Soap and Water -Foul Odor after Cleansing No No -Anesthetic Used Cetacaine 4% Lidocaine Solution Left Calf (cm) 42.4 Left Ankle (cm) 27.3 03/29/24 14:09 Wound Center Nurse 1 #7 LT HEEL -Current Size (cm) - Length 2.4 -Current Size (cm) - Width 1.3 -Current Size (cm) - Depth 0.1 -Total Square Cm 3.12 -Classification - Pressure Ulcer -Exudate Amt None Present -Wound Margin Distinct, Outline Attached -Necrosis Amt Large (67-100%) -Necrotic Tissue Type Eschar -Texture (Mariza-wound Skin Appearance) Assessed -Moisture (Mariza-wound Skin Appearance) Assessed,Dry/ Scaly -Color (Mariza-wound Skin Appearance) Assessed -Temperature (Mariza-wound Skin No Abnormality Appearance) (Pt Warm) -Tenderness on Palpation (Mariza-wound No Skin Appearance) -Ulcer Cleansing Rinsed/ Irrigated with Saline -Foul Odor after Cleansing -Anesthetic Used 5% Lidocaine Gel 6-right buttocks -Combined with other wound -Current Size (cm) - Length 0.4 -Current Size (cm) - Width 0.4 -Current Size (cm) - Depth 0.1 -Total Square Cm 0.16 -Date of Last Picture (Recall this field) -Epithelialization -Tunneling -Undermining/Tunneling -Circular Undermining -Exudate Amt Small -Exudate Type Serosanguineous -Wound Margin Distinct, Outline Attached -Granulation Amt Large (67-100%) -Granulation Quality Octa -Texture (Mariza-wound Skin Appearance) Assessed -Moisture (Mariza-wound Skin Appearance) Assessed -Color (Mariza-wound Skin Appearance) Assessed -Temperature (Mariza-wound Skin No Abnormality Appearance) (Pt Warm) -Tenderness on Palpation (Mariza-wound No Skin Appearance) -Ulcer Cleansing Rinsed/ Irrigated with Saline -Foul Odor after Cleansing -Anesthetic Used 5% Lidocaine Gel #5 RT LAT LE POST-OP -Current Size (cm) - Length 20.5 -Current Size (cm) - Width 5.5 -Current Size (cm) - Depth 0.1 -Total Square Cm 112.75 -Date of Last Picture (Recall this field) -Photo Taken -Classification - Thickness -Exudate Amt Medium -Exudate Type Serosanguineous -Wound Margin Distinct, Outline Attached -Granulation Amt Large (67-100%) -Granulation Quality Red -Necrosis Amt Small (1-33%) -Necrotic Tissue Type Adherent Slough -Structure Exposed -Texture (Mariza-wound Skin Appearance) Assessed -Moisture (Mariza-wound Skin Appearance) Assessed -Color (Mariza-wound Skin Appearance) Assessed -Temperature (Mariza-wound Skin No Abnormality Appearance) (Pt Warm) -Tenderness on Palpation (Mariza-wound No Skin Appearance) -Ulcer Cleansing Soap and Water -Foul Odor after Cleansing No -Anesthetic Used 4% Lidocaine Solution Left Calf (cm) Left Ankle (cm) WC - Nurse 2 - General Ulcer CM Notes Start: 03/15/24 14:56 Freq: Status: Active Protocol: Activity Type Activity Date Activity User E-sign Co-sign Detail Recorded Client Recorded Date Recorded By Document 03/15/24 15:13 [id number] 03/15/24 15:27 Document 03/15/24 16:07 [id number] 03/15/24 16:14 Document 03/22/24 15:46 [id number] 03/22/24 15:51 Document 03/22/24 16:23 [id number] 03/22/24 16:25 Document 03/29/24 14:57 [id number] 03/29/24 14:59 JF Document 03/29/24 15:15 [id number] 03/29/24 15:16 03/15/24 03/15/24 03/22/24 15:13 16:07 15:46 Wound Center Nurse 2 #7 LT HEEL -Time -Correct Patient No No -Correct Side, Site, Position No No -Correct Procedure No No -Procedure Performed No No -Type of Procedure -Clinical Debridement -Tissue Removed -Post Debridement (cm) - Length -Post Debridement (cm) - Width -Post Debridement (cm) - Depth -Total Square (Post) (cm) -Area of Debridement (cm) - Length -Area of Debridement (cm) - Width -Total Square (Area) (cm) -Tunneling -Undermining/Tunneling -Circular Undermining -Wound/Ulcer Outcome Not Healed Not Healed -Ulcer Cleansing -Foul Odor after Cleansing -Bioengineered Tissue -Bleeding Controlled with -Treatment Response -Offloading -Debridement - Subq, 1st 20sq cm 6-right buttocks -Time 16:07 -Correct Patient Yes -Correct Side, Site, Position Yes -Correct Procedure -Procedure Performed -Type of Procedure -Clinical Debridement -Tissue Removed -Post Debridement (cm) - Length -Post Debridement (cm) - Width -Post Debridement (cm) - Depth -Total Square (Post) (cm) -Area of Debridement (cm) - Length -Area of Debridement (cm) - Width -Total Square (Area) (cm) -Tunneling No -Undermining/Tunneling No -Circular Undermining No -Wound/Ulcer Outcome Not Healed -Ulcer Cleansing Rinsed/ Irrigated with Saline -Foul Odor after Cleansing No -Bioengineered Tissue No -Bleeding Controlled with -Treatment Response -Debridement - Subq, 1st 20sq cm -Wound Comment(s) very thin skin layer #5 RT LAT LE POST-OP -Time 15:47 -Correct Patient Yes Yes -Correct Side, Site, Position Yes Yes -Correct Procedure Yes Yes -Procedure Performed Yes Yes -Type of Procedure Debridement Debridement -Clinical Debridement Subcutaneous Subcutaneous -Tissue Removed Subcutaneous Subcutaneous -Post Debridement (cm) - Length 21.5 21.0 -Post Debridement (cm) - Width 7 5.9 -Post Debridement (cm) - Depth 0.1 0.1 -Total Square (Post) (cm) 150.5 123.90 -Area of Debridement (cm) - Length 21.5 21.0 -Area of Debridement (cm) - Width 7 5.9 -Total Square (Area) (cm) 150.5 123.90 -Tunneling No No -Undermining/Tunneling No No -Circular Undermining No No -Wound/Ulcer Outcome Not Healed Not Healed -Ulcer Cleansing Rinsed/ Rinsed/ Irrigated with Irrigated with Saline Saline -Foul Odor after Cleansing No No -Bioengineered Tissue Yes Yes -Type of Bioengineered Tissue Theraskin Theraskin -Expiration Date 03/22/28 03/22/28 -Product Lot Number [id number] -Percent Used 100 100 -Lot number of Saline Used [id number] -Bleeding Controlled with Pressure Pressure -Treatment Response Procedure Procedure Tolerated Well Tolerated Well -Offloading No No -Debridement - Subq, 1st 20sq cm No No -Apply Skin Sub - 1st 100 sq cm - Legs 1 1 -Apply Skin Sub - each addt'l 100 sq 1 1 cm - Legs -Theraskin - 103TSXL (116 SQ CM) (per 116 116 sq cm) Pain Scale: 0-10 Numeric Is Patient Pain Free? Yes Yes Yes 03/22/24 03/29/24 03/29/24 16:23 14:57 15:15 Wound Center Nurse 2 #7 LT HEEL -Time 14:57 -Correct Patient Yes -Correct Side, Site, Position Yes -Correct Procedure Yes -Procedure Performed Yes -Type of Procedure Debridement -Clinical Debridement Subcutaneous -Tissue Removed Subcutaneous -Post Debridement (cm) - Length 1.5 -Post Debridement (cm) - Width 1.7 -Post Debridement (cm) - Depth 0.1 -Total Square (Post) (cm) 2.55 -Area of Debridement (cm) - Length 1.5 -Area of Debridement (cm) - Width 1.7 -Total Square (Area) (cm) 2.55 -Tunneling No -Undermining/Tunneling No -Circular Undermining No -Wound/Ulcer Outcome Not Healed -Ulcer Cleansing Rinsed/ Irrigated with Saline -Foul Odor after Cleansing No -Bioengineered Tissue No -Bleeding Controlled with Pressure -Treatment Response Procedure Tolerated Well -Offloading No -Debridement - Subq, 1st 20sq cm Yes 6-right buttocks -Time 16:24 15:15 -Correct Patient Yes Yes -Correct Side, Site, Position Yes Yes -Correct Procedure Yes -Procedure Performed Yes -Type of Procedure Debridement -Clinical Debridement Subcutaneous -Tissue Removed Subcutaneous -Post Debridement (cm) - Length 0.8 -Post Debridement (cm) - Width 0.5 -Post Debridement (cm) - Depth 0.1 -Total Square (Post) (cm) 0.40 -Area of Debridement (cm) - Length 0.8 -Area of Debridement (cm) - Width 0.5 -Total Square (Area) (cm) 0.40 -Tunneling No -Undermining/Tunneling No -Circular Undermining No -Wound/Ulcer Outcome Not Healed Healed- Epithelialized -Ulcer Cleansing -Foul Odor after Cleansing No -Bioengineered Tissue No -Bleeding Controlled with Pressure -Treatment Response Procedure Tolerated Well -Debridement - Subq, 1st 20sq cm Yes -Wound Comment(s) #5 RT LAT LE POST-OP -Time 14:57 -Correct Patient Yes -Correct Side, Site, Position Yes -Correct Procedure Yes -Procedure Performed Yes -Type of Procedure Debridement -Clinical Debridement Subcutaneous -Tissue Removed Subcutaneous -Post Debridement (cm) - Length 20.2 -Post Debridement (cm) - Width 5.3 -Post Debridement (cm) - Depth 0.1 -Total Square (Post) (cm) 107.06 -Area of Debridement (cm) - Length 20.2 -Area of Debridement (cm) - Width 5.3 -Total Square (Area) (cm) 107.06 -Tunneling No -Undermining/Tunneling No -Circular Undermining No -Wound/Ulcer Outcome Not Healed -Ulcer Cleansing Rinsed/ Irrigated with Saline -Foul Odor after Cleansing No -Bioengineered Tissue No -Type of Bioengineered Tissue -Expiration Date -Product Lot Number -Percent Used -Lot number of Saline Used -Bleeding Controlled with Pressure -Treatment Response Procedure Tolerated Well -Offloading No -Debridement - Subq, 1st 20sq cm No -Apply Skin Sub - 1st 100 sq cm - Legs 1 -Apply Skin Sub - each addt'l 100 sq 1 cm - Legs -Theraskin - 103TSXL (116 SQ CM) (per 116 sq cm) Pain Scale: 0-10 Numeric Is Patient Pain Free? Yes Yes Yes WC - Nurse 3 - General Ulcer D/C NN Start: 03/15/24 14:56 Freq: Status: Active Protocol: Activity Type Activity Date Activity User E-sign Co-sign Detail Recorded Client Recorded Date Recorded By Document 03/15/24 15:35 KW [id number] 03/15/24 15:36 KW Document 03/15/24 16:20 BMF [id number] 03/15/24 16:21 BMF Document 03/22/24 15:58 BMF [id number] 03/22/24 15:59 BMF Document 03/22/24 16:30 KW [id number] 03/22/24 16:31 KW Document 03/29/24 15:22 RB [id number] 03/29/24 15:22 RB 03/15/24 03/15/24 03/22/24 15:35 16:20 15:58 Wound Care Center Nurse 3 #7 LT HEEL -Other Dressing betadine betadine gauze; -Primary Dressing Covered/Secured with Dry Gauze & Dry Gauze & Roll Gauze, Roll Gauze, Secured with Secured with Tape Tape -Other Covering per dl customer counter representative 6-right buttocks -Ulcer Cleansing Rinsed/ Irrigated with Saline -Foul Odor after Cleansing No -Primary Dressing Applied Mepilex Border -Other Dressing hydrogel -Mepilex Border 1 #5 RT LAT LE POST-OP -Other Dressing theraskin; abd pads, kerlix -Primary Dressing Covered/Secured with Dry Gauze & Dry Gauze & Roll Gauze, Roll Gauze, Secured with Secured with Tape Tape -Other Covering drsg per dl customer counter representative Right -Compression Wrap Celso Wrap Left -Compression Wrap Celso Wrap BLE -Compression Wrap Celso Wrap Treatment Response Procedure Procedure Tolerated Well Tolerated Well Pain Scale: 0-10 Numeric Is Patient Pain Free? Yes Yes Yes WC - Visit Discharge Discharge Condition Stable Stable Stable Ambulatory Status Wheelchair Wheelchair Wheelchair Transportation ecf ecf Medication Reconcilliation completed & No provided to patient/care provider Clinical Summary of Care Provided Yes Facility Type [facility] Care Irrigation Flume Layer Care Facility Facility 03/22/24 03/29/24 16:30 15:22 Wound Care Center Nurse 3 #7 LT HEEL -Other Dressing -Primary Dressing Covered/Secured with -Other Covering 6-right buttocks -Ulcer Cleansing -Foul Odor after Cleansing -Primary Dressing Applied C Hydrogel ($), Mepilex Border, NonAdherent Contact Layer -Other Dressing calmoseptine -Mepilex Border 1 #5 RT LAT LE POST-OP -Other Dressing -Primary Dressing Covered/Secured with -Other Covering Right -Compression Wrap Left -Compression Wrap BLE -Compression Wrap Treatment Response Procedure Tolerated Well Pain Scale: 0-10 Numeric Is Patient Pain Free? Yes Yes WC - Visit Discharge Discharge Condition Stable Ambulatory Status Ambulatory Transportation Private Auto Medication Reconcilliation completed & No provided to patient/care provider Clinical Summary of Care Provided Yes Facility Type Assessment/Plan Assessment/Plan (1) Non-pressure chronic ulcer of other part of right lower leg with fat layer exposed: CODE(S): L97.812 - Non-pressure chronic ulcer of other part of right lower leg with fat layer exposed PLAN: Patient was examined and evaluated. All findings were discussed with the patient. All questions were answered to the patient's satisfaction. Excisional debridement of the lateral right leg ulceration down to including subcutaneous tissue with a number 7 mm dermal curette without incident. Predebridement measurement is 20.0 x 5.0 x 0.1 cm. Postdebridement measurement is 20.2 x 5.3 x 0.1 cm. Excisional debridement of the left heel ulceration down to and including subcutaneous tissue with a number 3 mm dermal curette without incident. Predeb ridement measurement is sanguinous crust. Postdebridement measurement is 1.5 x 1.7 x 0.1 cm. Theraskin skin 116 cm? graft was applied to the right leg full-thickness ulceration with 100% use. 6th application. The graft site was free and clear of any infection. The wound/skin graft substitute was dressed with nonadherent bandage secured in place with Dermabond and Steri-Strips followed by Bolster dressing and compression bandages to the right lower extremity. Left heel was dressed with fibrocal, sterile dressing and compression wrap. Patient will be seen by nurse practitioner for sacral wound. Patient states that his insurance is running out at the SNF and will be returning home. Educated the patient that when he gets a date of discharge we will need to arrange transportation so the patient can continue to be seen weekly at the wound care center for the sacral wound and right leg ulceration and graft. Follow-up at the wound care center with Dr. Shannon in 1 week. (2) Blister of left heel: CODE(S): S90.822A - Blister (nonthermal), left foot, initial encounter QUALIFIERS: Encounter type: subsequent encounter Qualified Code(s): S90.822D - Blister (nonthermal), left foot, subsequent encounter (3) Other specified peripheral vascular diseases: CODE(S): I73.89 - Other specified peripheral vascular diseases
--- NOTE | 2024-03-29 16:12 | PN.PCM_ITS ---
History of Present Illness Date of Service: 03/29/24 Chief Complaint: Right buttock ulceration History of Wound: This is a 68-year-old morbidly obese diabetic male who sees Dr. Shannon for 3 large ulcerations on the right lateral calf. He is a resident of [facility] in [place], [place]. He has a history of bilateral lower extremity deep vein thrombosis, and a venous duplex examination performed on October 22, 2023, revealed chronic changes in the right lower extremity deep venous system, with a normal superficial venous system. Management of the patient's wound had been by means of [facility] Telephone Order Supervisor, Dr. Reyna, from [place], [place]. Approximately 1 week prior to presentation, the patient underwent placement of a left upper extremity PICC catheter and has been receiving vancomycin and Zosyn intravenously. The patient had been on chronic systemic anticoagulation with Eliquis until recently, which was discontinued as a result of his recent gastrointestinal bleeding. He developed a right buttocks (ischial area) pressure sore over the past month. He denies sleeping on low air loss mattress because he is unable to move it the bed and he finds it very difficult to move and to breath. He wears CPAP at night that he states he must sleep on his back when wearing. He admits to sitting for long periods of time in his wheel chair. He sits on a cushion and a pillow. He states they have been putting a barrier cream on the area and he believes it is making it worse. He states it is painful to touch and to sit on. Progress of Wound: Right buttocks pressure ulcer is healed today. Mariza wound is clear Objective Data Objective Data Vital Signs: Vital Signs Temp Pulse Resp BP O2 Del Method 96.9 F L 58 L 18 147/74 H Room Air 03/29/24 14:03/29/24 14:09 03/29/24 14:09 03/29/24 14:03/29/24 14:09 Oxygen Delivery Method Room Air Weight: 348 lb Body Mass Index (BMI) 44.6 Charges/Coding Visit Charges Office Visits / Consults: 22153 OV L3 Est 20min Physical Exam Const alert, oriented x3 and no apparent distress HEENT normocephalic Head and Scalp: atraumatic Eyes General Eye: normal appearance of both eyes Neck full ROM Resp normal respiratory effort, normal air movement and clear to auscultation bilaterally Effort and Inspection: able to speak in complete sentences Cardio regular rate and regular rhythm Bladder / Kidney Exam: catheter in place urethral Back/Spine normal ROM Extremity normal capillary refill Skin Wound Narrative: Right buttock ulcer is healed. Mariza wound is clear. He has Left heel ulcers that are being managed by Dr. Shannon. Neuro oriented x3 Psych cooperative Appearance: appropriate Speech: normal speech Mood & Affect: flat affect Debridement Note Debridement Note Post-Debridement Measurements and Additional Note: Post-Debridement Measurements/Treatment - Nurse 1 - General Ulcer Assessment Start: 03/15/24 14:56 Freq: Status: Active Protocol: [facility] ([facility])T Activity Type Activity Date Activity User E-sign Co-sign Detail Recorded Client Recorded Date Recorded By Document 03/15/24 14:56 CP [id number] 03/15/24 15:10 CP Document 03/15/24 15:36 KW [id number] 03/15/24 15:47 KW Document 03/22/24 15:03 KW [id number] 03/22/24 15:31 KW Document 03/29/24 14:09 KW [id number] 03/29/24 14:33 KW 03/15/24 03/15/24 03/22/24 14:56 15:36 15:03 - Today's Visit Information Type of service Follow-up Visit Follow-up Visit (Physician/CAN FILLING MACHINE OPERATOR (Physician/CAN FILLING MACHINE OPERATOR ) ) Arrival Mode Wheelchair Ambulatory Transfer Assist (Other) 1 Patient Identification Verified (Name & Yes Yes Yes ) Safety Precautions Fall Prevention Height and Weight Body Mass Index (BMI) 44.6 44.6 44.6 BMI Classification Obese Obese Obese Vital Signs Temperature (97.8 F-99.1 F) 97.1 F L 97.9 F Temperature Source Temporal Temporal Pulse Rate (60-100) 64 78 Pulse Location Monitor Monitor Respiratory Rate (12-18) 16 18 Respiratory rate source Observation Observation Oxygen Delivery Method Room Air Room Air Blood Pressure (90/60-120/80) 189/75 H 121/66 H Blood Pressure Mean (mm Hg) 113 84 Source Monitor Monitor Position Semi-Fowlers Sitting Blood Pressure Location Right Arm Left Arm History Since Last Visit- (Skip if this is Patient's initial visit) Have you changed medications since your No No last visit? Any new allergies or adverse reactions No No Had a fall/change in ADL's that may No No increase risk of falls Signs or symptoms of abuse and/or No No neglect since last visit Have you been in the hospital since your No No last visit? Has dressing in place as prescribed Yes Yes Has compression in place as prescribed Yes Yes Has offloadiing in place as prescribed N/A Experienced any changes in pain level or No management Left Footwear Regular Shoe Regular Shoe Right Footwear Regular Shoe Regular Shoe Pain Scale: 0-10 Numeric Is Patient Pain Free? Yes Yes No sacrum -Description Sharp,Burning, Aching 03/29/24 14:09 WC - Today's Visit Information Type of service Follow-up Visit (Physician/CAN FILLING MACHINE OPERATOR ) Arrival Mode Ambulatory Transfer Assist (Other) Patient Identification Verified (Name & Yes ) Safety Precautions Height and Weight Body Mass Index (BMI) 44.6 BMI Classification Obese Vital Signs Temperature (97.8 F-99.1 F) 96.9 F L Temperature Source Temporal Pulse Rate (60-100) 58 L Pulse Location Monitor Respiratory Rate (12-18) 18 Respiratory rate source Observation Oxygen Delivery Method Room Air Blood Pressure (90/60-120/80) 147/74 H Blood Pressure Mean (mm Hg) 98 Source Monitor Position Semi-Fowlers Blood Pressure Location Left Arm History Since Last Visit- (Skip if this is Patient's initial visit) Have you changed medications since your No last visit? Any new allergies or adverse reactions No Had a fall/change in ADL's that may No increase risk of falls Signs or symptoms of abuse and/or No neglect since last visit Have you been in the hospital since your No last visit? Has dressing in place as prescribed Yes Has compression in place as prescribed Yes Has offloadiing in place as prescribed N/A Experienced any changes in pain level or No management Left Footwear Regular Shoe Right Footwear Regular Shoe Pain Scale: 0-10 Numeric Is Patient Pain Free? Yes sacrum -Description - Nurse 1 - General Ulcer Measurement Start: 03/15/24 14:56 Freq: Status: Active Protocol: Activity Type Activity Date Activity User E-sign Co-sign Detail Recorded Client Recorded Date Recorded By Document 03/15/24 14:56 CP [id number] 03/15/24 15:10 CP Document 03/15/24 15:36 KW [id number] 03/15/24 15:47 KW Document 03/22/24 15:03 KW [id number] 03/22/24 15:31 KW Document 03/29/24 14:09 KW [id number] 03/29/24 14:33 KW 03/15/24 03/15/24 03/22/24 14:56 15:36 15:03 Wound Center Nurse 1 #7 LT HEEL -Current Size (cm) - Length 0.1 0.1 -Current Size (cm) - Width 0.1 0.1 -Current Size (cm) - Depth 0.1 0.1 -Total Square Cm 0.01 0.01 -Classification - Pressure Ulcer Suspected Deep Tissue Injury -Exudate Amt -Wound Margin -Necrosis Amt -Necrotic Tissue Type -Texture (Mariza-wound Skin Appearance) Assessed -Moisture (Mariza-wound Skin Appearance) Assessed -Color (Mariza-wound Skin Appearance) Assessed -Temperature (Mariza-wound Skin No Abnormality Appearance) (Pt Warm) -Tenderness on Palpation (Mariza-wound No Skin Appearance) -Ulcer Cleansing Soap and Water -Foul Odor after Cleansing No -Anesthetic Used 6-right buttocks -Combined with other wound No -Current Size (cm) - Length 0.1 0.5 -Current Size (cm) - Width 0.1 0.5 -Current Size (cm) - Depth 0.1 0.1 -Total Square Cm 0.01 0.25 -Date of Last Picture (Recall this 03/22/24 field) -Epithelialization Small 1-33% -Tunneling No -Undermining/Tunneling No -Circular Undermining No -Exudate Amt Small Small -Exudate Type Serosanguineous Serosanguineous -Wound Margin Flat & Intact Distinct, Outline Attached -Granulation Amt Large (67-100%) -Granulation Quality [place],Red -Texture (Mariza-wound Skin Appearance) Assessed, Assessed Scarring -Moisture (Mariza-wound Skin Appearance) Assessed Assessed -Color (Mariza-wound Skin Appearance) Assessed, Assessed Erythema -Temperature (Mariza-wound Skin No Abnormality No Abnormality Appearance) (Pt Warm) (Pt Warm) -Tenderness on Palpation (Mariza-wound No No Skin Appearance) -Ulcer Cleansing Rinsed/ Rinsed/ Irrigated with Irrigated with Saline Saline -Foul Odor after Cleansing No No -Anesthetic Used 5% Lidocaine 5% Lidocaine Gel Gel #5 RT LAT LE POST-OP -Current Size (cm) - Length 22 21 -Current Size (cm) - Width 7.4 5.5 -Current Size (cm) - Depth 0.2 0.1 -Total Square Cm 162.8 115.5 -Date of Last Picture (Recall this 03/22/24 field) -Photo Taken No -Classification - Thickness Full Thickness without Exposed Support Structure -Exudate Amt Small -Exudate Type Serosanguineous Serous -Wound Margin Flat & Intact Distinct, Outline Attached -Granulation Amt Large (67-100%) Large (67-100%) -Granulation Quality Red Red -Necrosis Amt Small (1-33%) -Necrotic Tissue Type Adherent Slough -Structure Exposed N/A -Texture (Mariza-wound Skin Appearance) No Abnormality Assessed -Moisture (Mariza-wound Skin Appearance) No Abnormality Assessed -Color (Mariza-wound Skin Appearance) No Abnormality Assessed -Temperature (Mariza-wound Skin No Abnormality No Abnormality Appearance) (Pt Warm) (Pt Warm) -Tenderness on Palpation (Mariza-wound Yes No Skin Appearance) -Ulcer Cleansing Soap and Water Soap and Water -Foul Odor after Cleansing No No -Anesthetic Used Cetacaine 4% Lidocaine Solution Left Calf (cm) 42.4 Left Ankle (cm) 27.3 03/29/24 14:09 Wound Center Nurse 1 #7 LT HEEL -Current Size (cm) - Length 2.4 -Current Size (cm) - Width 1.3 -Current Size (cm) - Depth 0.1 -Total Square Cm 3.12 -Classification - Pressure Ulcer -Exudate Amt None Present -Wound Margin Distinct, Outline Attached -Necrosis Amt Large (67-100%) -Necrotic Tissue Type Eschar -Texture (Mariza-wound Skin Appearance) Assessed -Moisture (Mariza-wound Skin Appearance) Assessed,Dry/ Scaly -Color (Mariza-wound Skin Appearance) Assessed -Temperature (Mariza-wound Skin No Abnormality Appearance) (Pt Warm) -Tenderness on Palpation (Mariza-wound No Skin Appearance) -Ulcer Cleansing Rinsed/ Irrigated with Saline -Foul Odor after Cleansing -Anesthetic Used 5% Lidocaine Gel 6-right buttocks -Combined with other wound -Current Size (cm) - Length 0.4 -Current Size (cm) - Width 0.4 -Current Size (cm) - Depth 0.1 -Total Square Cm 0.16 -Date of Last Picture (Recall this field) -Epithelialization -Tunneling -Undermining/Tunneling -Circular Undermining -Exudate Amt Small -Exudate Type Serosanguineous -Wound Margin Distinct, Outline Attached -Granulation Amt Large (67-100%) -Granulation Quality [place] -Texture (Mariza-wound Skin Appearance) Assessed -Moisture (Mariza-wound Skin Appearance) Assessed -Color (Mariza-wound Skin Appearance) Assessed -Temperature (Mariza-wound Skin No Abnormality Appearance) (Pt Warm) -Tenderness on Palpation (Mariza-wound No Skin Appearance) -Ulcer Cleansing Rinsed/ Irrigated with Saline -Foul Odor after Cleansing -Anesthetic Used 5% Lidocaine Gel #5 RT LAT LE POST-OP -Current Size (cm) - Length 20.5 -Current Size (cm) - Width 5.5 -Current Size (cm) - Depth 0.1 -Total Square Cm 112.75 -Date of Last Picture (Recall this field) -Photo Taken -Classification - Thickness -Exudate Amt Medium -Exudate Type Serosanguineous -Wound Margin Distinct, Outline Attached -Granulation Amt Large (67-100%) -Granulation Quality Red -Necrosis Amt Small (1-33%) -Necrotic Tissue Type Adherent Slough -Structure Exposed -Texture (Mariza-wound Skin Appearance) Assessed -Moisture (Mariza-wound Skin Appearance) Assessed -Color (Mariza-wound Skin Appearance) Assessed -Temperature (Mariza-wound Skin No Abnormality Appearance) (Pt Warm) -Tenderness on Palpation (Mariza-wound No Skin Appearance) -Ulcer Cleansing Soap and Water -Foul Odor after Cleansing No -Anesthetic Used 4% Lidocaine Solution Left Calf (cm) Left Ankle (cm) WC - Nurse 2 - General Ulcer CM Notes Start: 03/15/24 14:56 Freq: Status: Active Protocol: Activity Type Activity Date Activity User E-sign Co-sign Detail Recorded Client Recorded Date Recorded By Document 03/15/24 15:13 [id number] 03/15/24 15:27 Document 03/15/24 16:07 [id number] 03/15/24 16:14 Document 03/22/24 15:46 [id number] 03/22/24 15:51 Document 03/22/24 16:23 [id number] 03/22/24 16:25 Document 03/29/24 14:57 [id number] 03/29/24 14:59 JF Document 03/29/24 15:15 [id number] 03/29/24 15:16 03/15/24 03/15/24 03/22/24 15:13 16:07 15:46 Wound Center Nurse 2 #7 LT HEEL -Time -Correct Patient No No -Correct Side, Site, Position No No -Correct Procedure No No -Procedure Performed No No -Type of Procedure -Clinical Debridement -Tissue Removed -Post Debridement (cm) - Length -Post Debridement (cm) - Width -Post Debridement (cm) - Depth -Total Square (Post) (cm) -Area of Debridement (cm) - Length -Area of Debridement (cm) - Width -Total Square (Area) (cm) -Tunneling -Undermining/Tunneling -Circular Undermining -Wound/Ulcer Outcome Not Healed Not Healed -Ulcer Cleansing -Foul Odor after Cleansing -Bioengineered Tissue -Bleeding Controlled with -Treatment Response -Offloading -Debridement - Subq, 20sq cm 6-right buttocks -Time 16:07 -Correct Patient Yes -Correct Side, Site, Position Yes -Correct Procedure -Procedure Performed -Type of Procedure -Clinical Debridement -Tissue Removed -Post Debridement (cm) - Length -Post Debridement (cm) - Width -Post Debridement (cm) - Depth -Total Square (Post) (cm) -Area of Debridement (cm) - Length -Area of Debridement (cm) - Width -Total Square (Area) (cm) -Tunneling No -Undermining/Tunneling No -Circular Undermining No -Wound/Ulcer Outcome Not Healed -Ulcer Cleansing Rinsed/ Irrigated with Saline -Foul Odor after Cleansing No -Bioengineered Tissue No -Bleeding Controlled with -Treatment Response -Debridement - Subq, 1st 20sq cm -Wound Comment(s) very thin skin layer #5 RT LAT LE POST-OP -Time 15:47 -Correct Patient Yes Yes -Correct Side, Site, Position Yes Yes -Correct Procedure Yes Yes -Procedure Performed Yes Yes -Type of Procedure Debridement Debridement -Clinical Debridement Subcutaneous Subcutaneous -Tissue Removed Subcutaneous Subcutaneous -Post Debridement (cm) - Length 21.5 21.0 -Post Debridement (cm) - Width 7 5.9 -Post Debridement (cm) - Depth 0.1 0.1 -Total Square (Post) (cm) 150.5 123.90 -Area of Debridement (cm) - Length 21.5 21.0 -Area of Debridement (cm) - Width 7 5.9 -Total Square (Area) (cm) 150.5 123.90 -Tunneling No No -Undermining/Tunneling No No -Circular Undermining No No -Wound/Ulcer Outcome Not Healed Not Healed -Ulcer Cleansing Rinsed/ Rinsed/ Irrigated with Irrigated with Saline Saline -Foul Odor after Cleansing No No -Bioengineered Tissue Yes Yes -Type of Bioengineered Tissue Theraskin Theraskin -Expiration Date 03/22/28 03/22/28 -Product Lot Number [id number] -Percent Used 100 100 -Lot number of Saline Used [id number] -Bleeding Controlled with Pressure Pressure -Treatment Response Procedure Procedure Tolerated Well Tolerated Well -Offloading No No -Debridement - Subq, 1st 20sq cm No No -Apply Skin Sub - 1st 100 sq cm - Legs 1 1 -Apply Skin Sub - each addt'l 100 sq 1 1 cm - Legs -Theraskin - 103TSXL (116 SQ CM) (per 116 116 sq cm) Pain Scale: 0-10 Numeric Is Patient Pain Free? Yes Yes Yes 03/22/24 03/29/24 03/29/24 16:23 14:57 15:15 Wound Center Nurse 2 #7 LT HEEL -Time 14:57 -Correct Patient Yes -Correct Side, Site, Position Yes -Correct Procedure Yes -Procedure Performed Yes -Type of Procedure Debridement -Clinical Debridement Subcutaneous -Tissue Removed Subcutaneous -Post Debridement (cm) - Length 1.5 -Post Debridement (cm) - Width 1.7 -Post Debridement (cm) - Depth 0.1 -Total Square (Post) (cm) 2.55 -Area of Debridement (cm) - Length 1.5 -Area of Debridement (cm) - Width 1.7 -Total Square (Area) (cm) 2.55 -Tunneling No -Undermining/Tunneling No -Circular Undermining No -Wound/Ulcer Outcome Not Healed -Ulcer Cleansing Rinsed/ Irrigated with Saline -Foul Odor after Cleansing No -Bioengineered Tissue No -Bleeding Controlled with Pressure -Treatment Response Procedure Tolerated Well -Offloading No -Debridement - Subq, 1st 20sq cm Yes 6-right buttocks -Time 16:24 15:15 -Correct Patient Yes Yes -Correct Side, Site, Position Yes Yes -Correct Procedure Yes -Procedure Performed Yes -Type of Procedure Debridement -Clinical Debridement Subcutaneous -Tissue Removed Subcutaneous -Post Debridement (cm) - Length 0.8 -Post Debridement (cm) - Width 0.5 -Post Debridement (cm) - Depth 0.1 -Total Square (Post) (cm) 0.40 -Area of Debridement (cm) - Length 0.8 -Area of Debridement (cm) - Width 0.5 -Total Square (Area) (cm) 0.40 -Tunneling No -Undermining/Tunneling No -Circular Undermining No -Wound/Ulcer Outcome Not Healed Healed- Epithelialized -Ulcer Cleansing -Foul Odor after Cleansing No -Bioengineered Tissue No -Bleeding Controlled with Pressure -Treatment Response Procedure Tolerated Well -Debridement - Subq, 1st 20sq cm Yes -Wound Comment(s) #5 RT LAT LE POST-OP -Time 14:57 -Correct Patient Yes -Correct Side, Site, Position Yes -Correct Procedure Yes -Procedure Performed Yes -Type of Procedure Debridement -Clinical Debridement Subcutaneous -Tissue Removed Subcutaneous -Post Debridement (cm) - Length 20.2 -Post Debridement (cm) - Width 5.3 -Post Debridement (cm) - Depth 0.1 -Total Square (Post) (cm) 107.06 -Area of Debridement (cm) - Length 20.2 -Area of Debridement (cm) - Width 5.3 -Total Square (Area) (cm) 107.06 -Tunneling No -Undermining/Tunneling No -Circular Undermining No -Wound/Ulcer Outcome Not Healed -Ulcer Cleansing Rinsed/ Irrigated with Saline -Foul Odor after Cleansing No -Bioengineered Tissue No -Type of Bioengineered Tissue -Expiration Date -Product Lot Number -Percent Used -Lot number of Saline Used -Bleeding Controlled with Pressure -Treatment Response Procedure Tolerated Well -Offloading No -Debridement - Subq, 1st 20sq cm No -Apply Skin Sub - 1st 100 sq cm - Legs 1 -Apply Skin Sub - each addt'l 100 sq 1 cm - Legs -Theraskin - 103TSXL (116 SQ CM) (per 116 sq cm) Pain Scale: 0-10 Numeric Is Patient Pain Free? Yes Yes Yes WC - Nurse 3 - General Ulcer D/C NN Start: 03/15/24 14:56 Freq: Status: Active Protocol: Activity Type Activity Date Activity User E-sign Co-sign Detail Recorded Client Recorded Date Recorded By Document 03/15/24 15:35 KW [id number] 03/15/24 15:36 KW Document 03/15/24 16:20 BMF [id number] 03/15/24 16:21 BMF Document 03/22/24 15:58 BMF [id number] 03/22/24 15:59 BMF Document 03/22/24 16:30 KW [id number] 03/22/24 16:31 KW Document 03/29/24 15:22 RB [id number] 03/29/24 15:22 RB 03/15/24 03/15/24 03/22/24 15:35 16:20 15:58 Wound Care Center Nurse 3 #7 LT HEEL -Other Dressing betadine betadine gauze; -Primary Dressing Covered/Secured with Dry Gauze & Dry Gauze & Roll Gauze, Roll Gauze, Secured with Secured with Tape Tape -Other Covering per dl drying rack changer 6-right buttocks -Ulcer Cleansing Rinsed/ Irrigated with Saline -Foul Odor after Cleansing No -Primary Dressing Applied Mepilex Border -Other Dressing hydrogel -Mepilex Border 1 #5 RT LAT LE POST-OP -Other Dressing theraskin; abd pads, kerlix -Primary Dressing Covered/Secured with Dry Gauze & Dry Gauze & Roll Gauze, Roll Gauze, Secured with Secured with Tape Tape -Other Covering drsg per dl drying rack changer Right -Compression Wrap Celso Wrap Left -Compression Wrap Celso Wrap BLE -Compression Wrap Celso Wrap Treatment Response Procedure Procedure Tolerated Well Tolerated Well Pain Scale: 0-10 Numeric Is Patient Pain Free? Yes Yes Yes WC - Visit Discharge Discharge Condition Stable Stable Stable Ambulatory Status Wheelchair Wheelchair Wheelchair Transportation ecf ecf Medication Reconcilliation completed & No provided to patient/care provider Clinical Summary of Care Provided Yes Facility Type [facility] Consultant Care Facility Facility 03/22/24 03/29/24 16:30 15:22 Wound Care Center Nurse 3 #7 LT HEEL -Other Dressing -Primary Dressing Covered/Secured with -Other Covering 6-right buttocks -Ulcer Cleansing -Foul Odor after Cleansing -Primary Dressing Applied C Hydrogel ($), Mepilex Border, NonAdherent Contact Layer -Other Dressing calmoseptine -Mepilex Border 1 #5 RT LAT LE POST-OP -Other Dressing -Primary Dressing Covered/Secured with -Other Covering Right -Compression Wrap Left -Compression Wrap BLE -Compression Wrap Treatment Response Procedure Tolerated Well Pain Scale: 0-10 Numeric Is Patient Pain Free? Yes Yes WC - Visit Discharge Discharge Condition Stable Ambulatory Status Ambulatory Transportation Private Auto Medication Reconcilliation completed & No provided to patient/care provider Clinical Summary of Care Provided Yes Facility Type Assessment/Plan Assessment/Plan (1) Stage II pressure ulcer of right buttock: CODE(S): L89.312 - Pressure ulcer of right buttock, stage 2 PLAN: Plan Right buttock ulcer evaluated today. It is healed today. Continue barrier cream BID and as needed to help prevent reoccurrence of ulcer. Encouraged off loading as much as possible. Encouraged standing and ambulating with assistance. Continue to be seen by Dr. Shannon for his foot ulcers. Follow up with me on an as needed basis.
[2024-04-05 15:23] VITALS: BP 136/76; PULSE 60; RESP 18; TEMP 35.5; BMI 44.6
--- NOTE | 2024-04-05 15:56 | PCM.WC.PN ---
History of Present Illness Date of Service: 04/05/24 Chief Complaint: Right buttock ulceration History of Wound: This is a 68-year-old morbidly obese diabetic male who sees Dr. Shannon for 3 large ulcerations on the right lateral calf. He is a resident of [facility] in [place], [place]. He has a history of bilateral lower extremity deep vein thrombosis, and a venous duplex examination performed on October 22, 2023, revealed chronic changes in the right lower extremity deep venous system, with a normal superficial venous system. Management of the patient's wound had been by means of the [employer] [facility], Dr. Reyna, from [place], [place]. Approximately 1 week prior to presentation, the patient underwent placement of a left upper extremity PICC catheter and has been receiving vancomycin and Zosyn intravenously. The patient had been on chronic systemic anticoagulation with Eliquis until recently, which was discontinued as a result of his recent gastrointestinal bleeding. He developed a right buttocks (ischial area) pressure sore over the past month. He denies sleeping on low air loss mattress because he is unable to move it the bed and he finds it very difficult to move and to breath. He wears CPAP at night that he states he must sleep on his back when wearing. He admits to sitting for long periods of time in his wheel chair. He sits on a cushion and a pillow. He states they have been putting a barrier cream on the area and he believes it is making it worse. He states it is painful to touch and to sit on. Progress of Wound: Right buttocks pressure ulcer is healed today. Mariza wound is clear Subjective Subjective Mr. Gutierrez is a 68-year-old male presenting to wound care center today for follow-up evaluation of right leg full-thickness wound and left heel wound. Patient has been discharged from the SNF and is residing home. He is getting home health care for dressing changes and management of his Cohen catheter. Patient has recently gone to his primary doctor with a concern of a cyst in his groin area. He is unsure how it got there no treatment thus far. He has left his dressings clean dry and intact to the bilateral lower extremity. Denies trauma. Denies constitutional symptoms. No other pedal complaints at this time. Objective Data Objective Data Vital Signs: Vital Signs Temp Pulse Resp BP O2 Del Method 96 F L 60 18 136/76 H Room Air 04/05/24 15:23 04/05/24 15:23 04/05/24 15:23 04/05/24 15:23 03/29/24 14:09 Oxygen Delivery Method Room Air Weight: 157.85 kg Body Mass Index (BMI) 44.6 Physical Exam Narrative Vascular: DP and PT pulses are palpable to the right lower extremity. Nonpitting edema appreciated to the right lower extremity. Skin temperature gradient is warm to warm from proximal ankles to distal digit. No focal increase appreciated. Neurological: Light touch intact. Patient response to painful stimuli. Protective sensation is diminished. Dermatological: Full-thickness ulceration to the lateral aspect of the right leg measuring 17.0 x 5.5 x 0.1 cm. Wound base is granular. No malodor or probe to bone. No sign of infection. Evidence of stage I pressure sore appreciated to the left heel measuring 1.4 x 1.6 x 0.1 cm. Excisional debridement of the lateral right leg ulceration down to including subcutaneous tissue with a number 7 mm dermal curette without incident. Predebridement measurement is 16.8 x 5.3 x 0.1 cm. Postdebridement measurement is 17.0 x 5.5 x 0.1 cm. Musculoskeletal: Mild pain to palpation to full-thickness ulceration. No pain with calf compression. Debridement Note Debridement Note Post-Debridement Measurements and Additional Note: Post-Debridement Measurements/Treatment - Nurse 1 - General Ulcer Assessment Start: 03/15/24 14:56 Freq: Status: Active Protocol: .LOWEXT Activity Type Activity Date Activity User E-sign Co-sign Detail Recorded Client Recorded Date Recorded By Document 03/15/24 14:56 CP [id number] 03/15/24 15:10 CP Document 03/15/24 15:36 KW [id number] 03/15/24 15:47 KW Document 03/22/24 15:03 KW [id number] 03/22/24 15:31 KW Document 03/29/24 14:09 KW [id number] 03/29/24 14:33 KW Document 04/05/24 15:23 RB [id number] 04/05/24 15:29 RB 03/15/24 03/15/24 03/22/24 14:56 15:36 15:03 - Today's Visit Information Type of service Follow-up Visit Follow-up Visit (Physician/PROFESSOR IN FAMILY STUDIES (Physician/PROFESSOR IN FAMILY STUDIES ) ) Arrival Mode Wheelchair Ambulatory Transfer Assistance Transfer Assist (Other) 1 Patient Identification Verified (Name & Yes Yes Yes ) Patient Requires Transmission-Based Precautions Safety Precautions Fall Prevention Height and Weight Body Mass Index (BMI) 44.6 44.6 44.6 BMI Classification Obese Obese Obese Vital Signs Temperature (97.8 F-99.1 F) 97.1 F L 97.9 F Temperature Source Temporal Temporal Pulse Rate (60-100) 64 78 Pulse Location Monitor Monitor Respiratory Rate (12-18) 16 18 Respiratory rate source Observation Observation Oxygen Delivery Method Room Air Room Air Blood Pressure (90/60-120/80) 189/75 H 121/66 H Blood Pressure Mean (mm Hg) 113 84 Source Monitor Monitor Position Semi-Fowlers Sitting Blood Pressure Location Right Arm Left Arm History Since Last Visit- (Skip if this is Patient's initial visit) Have you changed medications since your No No last visit? Any new allergies or adverse reactions No No Had a fall/change in ADL's that may No No increase risk of falls Signs or symptoms of abuse and/or No No neglect since last visit Have you been in the hospital since your No No last visit? Has dressing in place as prescribed Yes Yes Has compression in place as prescribed Yes Yes Has offloadiing in place as prescribed N/A Experienced any changes in pain level or No management Left Footwear Regular Shoe Regular Shoe Right Footwear Regular Shoe Regular Shoe Pain Scale: 0-10 Numeric Is Patient Pain Free? Yes Yes No sacrum -Description Sharp,Burning, Aching RLE -Description -Intensity -Duration (hours) -Pain Behavior -Alleviating Factors/Interventions 03/29/24 04/05/24 14:09 15:23 WC - Today's Visit Information Type of service Follow-up Visit Follow-up Visit (Physician/PROFESSOR IN FAMILY STUDIES (Physician/PROFESSOR IN FAMILY STUDIES ) ) Arrival Mode Ambulatory Ambulatory Transfer Assistance None Transfer Assist (Other) Patient Identification Verified (Name & Yes Yes ) Patient Requires Transmission-Based No Precautions Safety Precautions Height and Weight Body Mass Index (BMI) 44.6 44.6 BMI Classification Obese Obese Vital Signs Temperature (97.8 F-99.1 F) 96.9 F L 96 F L Temperature Source Temporal Temporal Pulse Rate (60-100) 58 L 60 Pulse Location Monitor Monitor Respiratory Rate (12-18) 18 18 Respiratory rate source Observation Observation Oxygen Delivery Method Room Air Blood Pressure (90/60-120/80) 147/74 H 136/76 H Blood Pressure Mean (mm Hg) 98 96 Source Monitor Monitor Position Semi-Fowlers Semi-Fowlers Blood Pressure Location Left Arm Left Arm History Since Last Visit- (Skip if this is Patient's initial visit) Have you changed medications since your No No last visit? Any new allergies or adverse reactions No No Had a fall/change in ADL's that may No No increase risk of falls Signs or symptoms of abuse and/or No No neglect since last visit Have you been in the hospital since your No Yes last visit? Has dressing in place as prescribed Yes Yes Has compression in place as prescribed Yes Yes Has offloadiing in place as prescribed N/A No Experienced any changes in pain level or No No management Left Footwear Regular Shoe Right Footwear Regular Shoe Pain Scale: 0-10 Numeric Is Patient Pain Free? Yes No sacrum -Description RLE -Description Aching -Intensity 5 -Duration (hours) Acute -Pain Behavior Withdrawal from Touch -Alleviating Factors/Interventions None WC - Nurse 1 - General Ulcer Measurement Start: 03/15/24 14:56 Freq: Status: Active Protocol: Activity Type Activity Date Activity User E-sign Co-sign Detail Recorded Client Recorded Date Recorded By Document 03/15/24 14:56 CP [id number] 03/15/24 15:10 Document 03/15/24 15:36 KW [id number] 03/15/24 15:47 KW Document 03/22/24 15:03 KW [id number] 03/22/24 15:31 KW Document 03/29/24 14:09 KW [id number] 03/29/24 14:33 KW Document 04/05/24 15:23 RB [id number] 04/05/24 15:29 RB 03/15/24 03/15/24 03/22/24 14:56 15:36 15:03 Wound Center Nurse 1 6-right buttocks -Combined with other wound No -Current Size (cm) - Length 0.1 0.5 -Current Size (cm) - Width 0.1 0.5 -Current Size (cm) - Depth 0.1 0.1 -Total Square Cm 0.01 0.25 -Date of Last Picture (Recall this 03/22/24 field) -Epithelialization Small 1-33% -Tunneling No -Undermining/Tunneling No -Circular Undermining No -Exudate Amt Small Small -Exudate Type Serosanguineous Serosanguineous -Wound Margin Flat & Intact Distinct, Outline Attached -Granulation Amt Large (67-100%) -Granulation Quality [place],Red -Texture (Mariza-wound Skin Appearance) Assessed, Assessed Scarring -Moisture (Mariza-wound Skin Appearance) Assessed Assessed -Color (Mariza-wound Skin Appearance) Assessed, Assessed Erythema -Temperature (Mariza-wound Skin No Abnormality No Abnormality Appearance) (Pt Warm) (Pt Warm) -Tenderness on Palpation (Mariza-wound No No Skin Appearance) -Ulcer Cleansing Rinsed/ Rinsed/ Irrigated with Irrigated with Saline Saline -Foul Odor after Cleansing No No -Anesthetic Used 5% Lidocaine 5% Lidocaine Gel Gel #7 LT HEEL -Combined with other wound -Current Size (cm) - Length 0.1 0.1 -Current Size (cm) - Width 0.1 0.1 -Current Size (cm) - Depth 0.1 0.1 -Total Square Cm 0.01 0.01 -Tunneling -Undermining/Tunneling -Circular Undermining -Classification - Pressure Ulcer Suspected Deep Tissue Injury -Exudate Amt -Wound Margin -Granulation Amt -Granulation Quality -Slough/Fibrin -Necrosis Amt -Necrotic Tissue Type -Structure Exposed -Texture (Mariza-wound Skin Appearance) Assessed -Moisture (Mariza-wound Skin Appearance) Assessed -Color (Mariza-wound Skin Appearance) Assessed -Temperature (Mariza-wound Skin No Abnormality Appearance) (Pt Warm) -Tenderness on Palpation (Mariza-wound No Skin Appearance) -Ulcer Cleansing Soap and Water -Foul Odor after Cleansing No -Anesthetic Used #5 RT LAT LE POST-OP -Combined with other wound -Current Size (cm) - Length 22 21 -Current Size (cm) - Width 7.4 5.5 -Current Size (cm) - Depth 0.2 0.1 -Total Square Cm 162.8 115.5 -Date of Last Picture (Recall this 03/22/24 field) -Photo Taken No -Tunneling -Undermining/Tunneling -Circular Undermining -Classification - Thickness Full Thickness without Exposed Support Structure -Exudate Amt Small -Exudate Type Serosanguineous Serous -Wound Margin Flat & Intact Distinct, Outline Attached -Granulation Amt Large (67-100%) Large (67-100%) -Granulation Quality Red Red -Slough/Fibrin -Necrosis Amt Small (1-33%) -Necrotic Tissue Type Adherent Slough -Structure Exposed N/A -Texture (Mariza-wound Skin Appearance) No Abnormality Assessed -Moisture (Mariza-wound Skin Appearance) No Abnormality Assessed -Color (Mariza-wound Skin Appearance) No Abnormality Assessed -Temperature (Mariza-wound Skin No Abnormality No Abnormality Appearance) (Pt Warm) (Pt Warm) -Tenderness on Palpation (Mariza-wound Yes No Skin Appearance) -Ulcer Cleansing Soap and Water Soap and Water -Foul Odor after Cleansing No No -Anesthetic Used Cetacaine 4% Lidocaine Solution -Wound Comment(s) Lower Limb Edema Present Right Calf (cm) Right Ankle (cm) Left Calf (cm) 42.4 Left Ankle (cm) 27.3 03/29/24 04/05/24 14:09 15:23 Wound Center Nurse 1 6-right buttocks -Combined with other wound -Current Size (cm) - Length 0.4 -Current Size (cm) - Width 0.4 -Current Size (cm) - Depth 0.1 -Total Square Cm 0.16 -Date of Last Picture (Recall this field) -Epithelialization -Tunneling -Undermining/Tunneling -Circular Undermining -Exudate Amt Small -Exudate Type Serosanguineous -Wound Margin Distinct, Outline Attached -Granulation Amt Large (67-100%) -Granulation Quality [place] -Texture (Mariza-wound Skin Appearance) Assessed Scarring -Moisture (Mariza-wound Skin Appearance) Assessed -Color (Mariza-wound Skin Appearance) Assessed -Temperature (Mariza-wound Skin No Abnormality Appearance) (Pt Warm) -Tenderness on Palpation (Mariza-wound No Skin Appearance) -Ulcer Cleansing Rinsed/ Irrigated with Saline -Foul Odor after Cleansing -Anesthetic Used 5% Lidocaine Gel #7 LT HEEL -Combined with other wound No -Current Size (cm) - Length 2.4 0.1 -Current Size (cm) - Width 1.3 0.1 -Current Size (cm) - Depth 0.1 0.1 -Total Square Cm 3.12 0.01 -Tunneling No -Undermining/Tunneling No -Circular Undermining No -Classification - Pressure Ulcer -Exudate Amt None Present None Present -Wound Margin Distinct, Distinct, Outline Outline Attached Attached -Granulation Amt None Present (0 %) -Granulation Quality [place] -Slough/Fibrin Yes -Necrosis Amt Large (67-100%) Large (67-100%) -Necrotic Tissue Type Eschar Eschar -Structure Exposed N/A -Texture (Mariza-wound Skin Appearance) Assessed Assessed,Callus -Moisture (Mariza-wound Skin Appearance) Assessed,Dry/ Assessed Scaly -Color (Mariza-wound Skin Appearance) Assessed Assessed -Temperature (Mariza-wound Skin No Abnormality No Abnormality Appearance) (Pt Warm) (Pt Warm) -Tenderness on Palpation (Mariza-wound No No Skin Appearance) -Ulcer Cleansing Rinsed/ Wound Cleanser Irrigated with Saline -Foul Odor after Cleansing No -Anesthetic Used 5% Lidocaine 5% Lidocaine Gel Gel #5 RT LAT LE POST-OP -Combined with other wound No -Current Size (cm) - Length 20.5 22 -Current Size (cm) - Width 5.5 7 -Current Size (cm) - Depth 0.1 0.1 -Total Square Cm 112.75 154 -Date of Last Picture (Recall this field) -Photo Taken -Tunneling No -Undermining/Tunneling No -Circular Undermining No -Classification - Thickness -Exudate Amt Medium Large -Exudate Type Serosanguineous Serosanguineous -Wound Margin Distinct, Distinct, Outline Outline Attached Attached -Granulation Amt Large (67-100%) Medium (34-66%) -Granulation Quality Red [place] -Slough/Fibrin Yes -Necrosis Amt Small (1-33%) Medium (34-66%) -Necrotic Tissue Type Adherent Slough Adherent Slough -Structure Exposed N/A -Texture (Mariza-wound Skin Appearance) Assessed Assessed, Scarring -Moisture (Mariza-wound Skin Appearance) Assessed Assessed -Color (Mariza-wound Skin Appearance) Assessed Assessed -Temperature (Mariza-wound Skin No Abnormality No Abnormality Appearance) (Pt Warm) (Pt Warm) -Tenderness on Palpation (Mariza-wound No No Skin Appearance) -Ulcer Cleansing Soap and Water -Foul Odor after Cleansing No No -Anesthetic Used 4% Lidocaine Solution -Wound Comment(s) THERASKIN AND VEIL LEFT IN PLACE PERIUCLER WASHED WITH HIBICLEANSE Lower Limb Edema Present Yes Right Calf (cm) 38.5 Right Ankle (cm) 28 Left Calf (cm) 46.5 Left Ankle (cm) 29.5 WC - Nurse 2 - General Ulcer CM Notes Start: 03/15/24 14:56 Freq: Status: Active Protocol: Activity Type Activity Date Activity User E-sign Co-sign Detail Recorded Client Recorded Date Recorded By Document 03/15/24 15:13 [id number] 03/15/24 15:27 Document 03/15/24 16:07 [id number] 03/15/24 16:14 Document 03/22/24 15:46 [id number] 03/22/24 15:51 Document 03/22/24 16:23 GM [id number] 03/22/24 16:25 Document 03/29/24 14:57 JF [id number] 03/29/24 14:59 Document 03/29/24 15:15 GM [id number] 03/29/24 15:16 Document 04/05/24 15:39 [id number] 04/05/24 15:46 03/15/24 03/15/24 03/22/24 15:13 16:07 15:46 Wound Center Nurse 2 6-right buttocks -Time 16:07 -Correct Patient Yes -Correct Side, Site, Position Yes -Correct Procedure -Procedure Performed -Type of Procedure -Clinical Debridement -Tissue Removed -Post Debridement (cm) - Length -Post Debridement (cm) - Width -Post Debridement (cm) - Depth -Total Square (Post) (cm) -Area of Debridement (cm) - Length -Area of Debridement (cm) - Width -Total Square (Area) (cm) -Tunneling No -Undermining/Tunneling No -Circular Undermining No -Wound/Ulcer Outcome Not Healed -Ulcer Cleansing Rinsed/ Irrigated with Saline -Foul Odor after Cleansing No -Bioengineered Tissue No -Bleeding Controlled with -Treatment Response -Debridement - Subq, 1st 20sq cm -Wound Comment(s) very thin skin layer #7 LT HEEL -Time -Correct Patient No No -Correct Side, Site, Position No No -Correct Procedure No No -Procedure Performed No No -Type of Procedure -Clinical Debridement -Tissue Removed -Post Debridement (cm) - Length -Post Debridement (cm) - Width -Post Debridement (cm) - Depth -Total Square (Post) (cm) -Area of Debridement (cm) - Length -Area of Debridement (cm) - Width -Total Square (Area) (cm) -Tunneling -Undermining/Tunneling -Circular Undermining -Wound/Ulcer Outcome Not Healed Not Healed -Ulcer Cleansing -Foul Odor after Cleansing -Bioengineered Tissue -Bleeding Controlled with -Treatment Response -Offloading -Debridement - Subq, 1st 20sq cm #5 RT LAT LE POST-OP -Time 15:47 -Correct Patient Yes Yes -Correct Side, Site, Position Yes Yes -Correct Procedure Yes Yes -Procedure Performed Yes Yes -Type of Procedure Debridement Debridement -Clinical Debridement Subcutaneous Subcutaneous -Tissue Removed Subcutaneous Subcutaneous -Post Debridement (cm) - Length 21.5 21.0 -Post Debridement (cm) - Width 7 5.9 -Post Debridement (cm) - Depth 0.1 0.1 -Total Square (Post) (cm) 150.5 123.90 -Area of Debridement (cm) - Length 21.5 21.0 -Area of Debridement (cm) - Width 7 5.9 -Total Square (Area) (cm) 150.5 123.90 -Tunneling No No -Undermining/Tunneling No No -Circular Undermining No No -Wound/Ulcer Outcome Not Healed Not Healed -Ulcer Cleansing Rinsed/ Rinsed/ Irrigated with Irrigated with Saline Saline -Foul Odor after Cleansing No No -Bioengineered Tissue Yes Yes -Type of Bioengineered Tissue Theraskin Theraskin -Expiration Date 03/22/28 03/22/28 -Product Lot Number [id number] -Percent Used 100 100 -Lot number of Saline Used [id number] -Bleeding Controlled with Pressure Pressure -Treatment Response Procedure Procedure Tolerated Well Tolerated Well -Offloading No No -Debridement - Subq, 1st 20sq cm No No -Debridement, SubQ, ea addt'l 20sq cm or part thereof -Apply Skin Sub - 1st 100 sq cm - Legs 1 1 -Apply Skin Sub - each addt'l 100 sq 1 1 cm - Legs -Theraskin - 103TSXL (116 SQ CM) (per 116 116 sq cm) Pain Scale: 0-10 Numeric Is Patient Pain Free? Yes Yes Yes 03/22/24 03/29/24 03/29/24 16:23 14:57 15:15 Wound Center Nurse 2 6-right buttocks -Time 16:24 15:15 -Correct Patient Yes Yes -Correct Side, Site, Position Yes Yes -Correct Procedure Yes -Procedure Performed Yes -Type of Procedure Debridement -Clinical Debridement Subcutaneous -Tissue Removed Subcutaneous -Post Debridement (cm) - Length 0.8 -Post Debridement (cm) - Width 0.5 -Post Debridement (cm) - Depth 0.1 -Total Square (Post) (cm) 0.40 -Area of Debridement (cm) - Length 0.8 -Area of Debridement (cm) - Width 0.5 -Total Square (Area) (cm) 0.40 -Tunneling No -Undermining/Tunneling No -Circular Undermining No -Wound/Ulcer Outcome Not Healed Healed- Epithelialized -Ulcer Cleansing -Foul Odor after Cleansing No -Bioengineered Tissue No -Bleeding Controlled with Pressure -Treatment Response Procedure Tolerated Well -Debridement - Subq, 1st 20sq cm Yes -Wound Comment(s) #7 LT HEEL -Time 14:57 -Correct Patient Yes -Correct Side, Site, Position Yes -Correct Procedure Yes -Procedure Performed Yes -Type of Procedure Debridement -Clinical Debridement Subcutaneous -Tissue Removed Subcutaneous -Post Debridement (cm) - Length 1.5 -Post Debridement (cm) - Width 1.7 -Post Debridement (cm) - Depth 0.1 -Total Square (Post) (cm) 2.55 -Area of Debridement (cm) - Length 1.5 -Area of Debridement (cm) - Width 1.7 -Total Square (Area) (cm) 2.55 -Tunneling No -Undermining/Tunneling No -Circular Undermining No -Wound/Ulcer Outcome Not Healed -Ulcer Cleansing Rinsed/ Irrigated with Saline -Foul Odor after Cleansing No -Bioengineered Tissue No -Bleeding Controlled with Pressure -Treatment Response Procedure Tolerated Well -Offloading No -Debridement - Subq, 1st 20sq cm Yes #5 RT LAT LE POST-OP -Time 14:57 -Correct Patient Yes -Correct Side, Site, Position Yes -Correct Procedure Yes -Procedure Performed Yes -Type of Procedure Debridement -Clinical Debridement Subcutaneous -Tissue Removed Subcutaneous -Post Debridement (cm) - Length 20.2 -Post Debridement (cm) - Width 5.3 -Post Debridement (cm) - Depth 0.1 -Total Square (Post) (cm) 107.06 -Area of Debridement (cm) - Length 20.2 -Area of Debridement (cm) - Width 5.3 -Total Square (Area) (cm) 107.06 -Tunneling No -Undermining/Tunneling No -Circular Undermining No -Wound/Ulcer Outcome Not Healed -Ulcer Cleansing Rinsed/ Irrigated with Saline -Foul Odor after Cleansing No -Bioengineered Tissue No -Type of Bioengineered Tissue -Expiration Date -Product Lot Number -Percent Used -Lot number of Saline Used -Bleeding Controlled with Pressure -Treatment Response Procedure Tolerated Well -Offloading No -Debridement - Subq, 1st 20sq cm No -Debridement, SubQ, ea addt'l 20sq cm or part thereof -Apply Skin Sub - 1st 100 sq cm - Legs 1 -Apply Skin Sub - each addt'l 100 sq 1 cm - Legs -Theraskin - 103TSXL (116 SQ CM) (per 116 sq cm) Pain Scale: 0-10 Numeric Is Patient Pain Free? Yes Yes Yes 04/05/24 15:39 Wound Center Nurse 2 6-right buttocks -Time -Correct Patient -Correct Side, Site, Position -Correct Procedure -Procedure Performed -Type of Procedure -Clinical Debridement -Tissue Removed -Post Debridement (cm) - Length -Post Debridement (cm) - Width -Post Debridement (cm) - Depth -Total Square (Post) (cm) -Area of Debridement (cm) - Length -Area of Debridement (cm) - Width -Total Square (Area) (cm) -Tunneling -Undermining/Tunneling -Circular Undermining -Wound/Ulcer Outcome -Ulcer Cleansing -Foul Odor after Cleansing -Bioengineered Tissue -Bleeding Controlled with -Treatment Response -Debridement - Subq, 1st 20sq cm -Wound Comment(s) #7 LT HEEL -Time -Correct Patient No -Correct Side, Site, Position No -Correct Procedure No -Procedure Performed No -Type of Procedure -Clinical Debridement -Tissue Removed -Post Debridement (cm) - Length 1.4 -Post Debridement (cm) - Width 1.6 -Post Debridement (cm) - Depth 0.1 -Total Square (Post) (cm) 2.24 -Area of Debridement (cm) - Length 1.4 -Area of Debridement (cm) - Width 1.6 -Total Square (Area) (cm) 2.24 -Tunneling -Undermining/Tunneling -Circular Undermining -Wound/Ulcer Outcome Not Healed -Ulcer Cleansing -Foul Odor after Cleansing -Bioengineered Tissue -Bleeding Controlled with -Treatment Response -Offloading -Debridement - Subq, 1st 20sq cm #5 RT LAT LE POST-OP -Time 15:41 -Correct Patient Yes -Correct Side, Site, Position Yes -Correct Procedure Yes -Procedure Performed Yes -Type of Procedure Debridement -Clinical Debridement Subcutaneous -Tissue Removed Subcutaneous -Post Debridement (cm) - Length 17 -Post Debridement (cm) - Width 5.5 -Post Debridement (cm) - Depth 1.1 -Total Square (Post) (cm) 93.5 -Area of Debridement (cm) - Length 17 -Area of Debridement (cm) - Width 5.5 -Total Square (Area) (cm) 93.5 -Tunneling No -Undermining/Tunneling No -Circular Undermining No -Wound/Ulcer Outcome Not Healed -Ulcer Cleansing Rinsed/ Irrigated with Saline -Foul Odor after Cleansing No -Bioengineered Tissue No -Type of Bioengineered Tissue -Expiration Date -Product Lot Number -Percent Used -Lot number of Saline Used -Bleeding Controlled with Pressure -Treatment Response Procedure Tolerated Well -Offloading No -Debridement - Subq, 1st 20sq cm Yes -Debridement, SubQ, ea addt'l 20sq cm 4 or part thereof -Apply Skin Sub - 1st 100 sq cm - Legs -Apply Skin Sub - each addt'l 100 sq cm - Legs -Theraskin - 103TSXL (116 SQ CM) (per sq cm) Pain Scale: 0-10 Numeric Is Patient Pain Free? Yes - Nurse 3 - General Ulcer D/C NN Start: 03/15/24 14:56 Freq: Status: Active Protocol: Activity Type Activity Date Activity User E-sign Co-sign Detail Recorded Client Recorded Date Recorded By Document 03/15/24 15:35 KW [id number] 03/15/24 15:36 KW Document 03/15/24 16:20 BMF [id number] 03/15/24 16:21 BMF Document 03/22/24 15:58 BMF [id number] 03/22/24 15:59 BMF Document 03/22/24 16:30 KW [id number] 03/22/24 16:31 KW Document 09/18/24 15:22 RB [id number] 03/29/24 15:22 RB 03/15/24 03/15/24 03/22/24 15:35 16:20 15:58 Wound Care Center Nurse 3 6-right buttocks -Ulcer Cleansing Rinsed/ Irrigated with Saline -Foul Odor after Cleansing No -Primary Dressing Applied Mepilex Border -Other Dressing hydrogel -Mepilex Border 1 #7 LT HEEL -Other Dressing betadine betadine gauze; -Primary Dressing Covered/Secured with Dry Gauze & Dry Gauze & Roll Gauze, Roll Gauze, Secured with Secured with Tape Tape -Other Covering per dl sewing supervisor #5 RT LAT LE POST-OP -Other Dressing theraskin; abd pads, kerlix -Primary Dressing Covered/Secured with Dry Gauze & Dry Gauze & Roll Gauze, Roll Gauze, Secured with Secured with Tape Tape -Other Covering drsg per dl sewing supervisor Right -Compression Wrap Celso Wrap Left -Compression Wrap Celso Wrap BLE -Compression Wrap Celso Wrap Treatment Response Procedure Procedure Tolerated Well Tolerated Well Pain Scale: 0-10 Numeric Is Patient Pain Free? Yes Yes Yes WC - Visit Discharge Discharge Condition Stable Stable Stable Ambulatory Status Wheelchair Wheelchair Wheelchair Transportation ecf ecf Medication Reconcilliation completed & No provided to patient/care provider Clinical Summary of Care Provided Yes Facility Type Carding Supervisor Care Skilled Nursing Care Facility Facility 03/22/24 03/29/24 16:30 15:22 Wound Care Center Nurse 3 6-right buttocks -Ulcer Cleansing -Foul Odor after Cleansing -Primary Dressing Applied C Hydrogel ($), Mepilex Border, NonAdherent Contact Layer -Other Dressing calmoseptine -Mepilex Border 1 #7 LT HEEL -Other Dressing -Primary Dressing Covered/Secured with -Other Covering #5 RT LAT LE POST-OP -Other Dressing -Primary Dressing Covered/Secured with -Other Covering Right -Compression Wrap Left -Compression Wrap BLE -Compression Wrap Treatment Response Procedure Tolerated Well Pain Scale: 0-10 Numeric Is Patient Pain Free? Yes Yes WC - Visit Discharge Discharge Condition Stable Ambulatory Status Ambulatory Transportation Private Auto Medication Reconcilliation completed & No provided to patient/care provider Clinical Summary of Care Provided Yes Facility Type Assessment/Plan Assessment/Plan (1) Non-pressure chronic ulcer of other part of right lower leg with fat layer exposed: CODE(S): L97.812 - Non-pressure chronic ulcer of other part of right lower leg with fat layer exposed PLAN: Patient was examined and evaluated. All findings were discussed with the patient. All questions were answered to the patient's satisfaction. Excisional debridement of the lateral right leg ulceration down to including subcutaneous tissue with a number 7 mm dermal curette without incident. Predebridement measurement is 16.8 x 5.3 x 0.1 cm. Postdebridement measurement is 17.0 x 5.5 x 0.1 cm. The right lower extremities were cleaned and patted dry. Fibracol was applied to the full-thickness wound followed by dry sterile dressing and multilayer compression bandage was donned to right lower extremity. The left heel was dressed with Betadine paint and Band-Aid. Orders will be given for every other day, Wednesday, Wednesday and Wednesday dressing changes to the patient's home health care. Follow-up at the wound care center with Dr. Shannon in 2 week. (2) Blister of left heel: CODE(S): S90.822A - Blister (nonthermal), left foot, initial encounter QUALIFIERS: Encounter type: subsequent encounter Qualified Code(s): S90.822D - Blister (nonthermal), left foot, subsequent encounter (3) Other specified peripheral vascular diseases: CODE(S): I73.89 - Other specified peripheral vascular diseases
== END 2024-04-10 23:59 | disposition home or self-care (01) ==
LOC: WC 14:30
PROVIDERS: Referring Provider Surgery; Visit Provider Podiatrist Foot & Ankle Surgery
DX: E11.621 Type 2 diabetes mellitus with foot ulcer (principal); L89.312 Pressure ulcer of right buttock, stage 2; L97.812 Non-pressure chronic ulcer of other part of right lower leg with fat layer exposed; N18.4 Chronic kidney disease, stage 4 (severe); J44.9 Chronic obstructive pulmonary disease, unspecified; I48.91 Unspecified atrial fibrillation; E66.01 Morbid (severe) obesity due to excess calories; Z68.41 Body mass index [BMI] 40.0-44.9, adult; E11.42 Type 2 diabetes mellitus with diabetic polyneuropathy; Z79.4 Long term (current) use of insulin; E11.22 Type 2 diabetes mellitus with diabetic chronic kidney disease; Z87.891 Personal history of nicotine dependence; I73.89 Other specified peripheral vascular diseases; S90.822D Blister (nonthermal), left foot, subsequent encounter; Z99.89 Dependence on other enabling machines and devices; Z86.718 Personal history of other venous thrombosis and embolism; I25.2 Old myocardial infarction; I12.9 Hypertensive chronic kidney disease with stage 1 through stage 4 chronic kidney disease, or unspecified chronic kidney disease; G47.33 Obstructive sleep apnea (adult) (pediatric); Z79.01 Long term (current) use of anticoagulants
CPT/HCPCS: 11042; 11045; 15273; 15274; 99213; Q4121; G0463

== ENCOUNTER 2024-05-10 08:30 | Outpatient (RCR) | payer MEDICARE, SELFPAY ==
[2024-04-11 00:35] VITALS: BP 167/86; PULSE 60; RESP 16; TEMP 36.2; BMI 44.6
[2024-04-19 13:22] VITALS: BP 129/75; PULSE 67; RESP 16; TEMP 36.4; BMI 44.6
--- NOTE | 2024-04-19 14:39 | PCM.WC.PN ---
History of Present Illness Date of Service: 04/19/24 Chief Complaint: Right buttock ulceration History of Wound: This is a 68-year-old morbidly obese diabetic male who sees Dr. Shannon for 3 large ulcerations on the right lateral calf. He is a resident of [facility] in [place], [place]. He has a history of bilateral lower extremity deep vein thrombosis, and a venous duplex examination performed on October 22, 2023, revealed chronic changes in the right lower extremity deep venous system, with a normal superficial venous system. Management of the patient's wound had been by means of the [facility] Laboratory Assistant, Dr. Reyna, from [place], [place]. Approximately 1 week prior to presentation, the patient underwent placement of a left upper extremity PICC catheter and has been receiving vancomycin and Zosyn intravenously. The patient had been on chronic systemic anticoagulation with Eliquis until recently, which was discontinued as a result of his recent gastrointestinal bleeding. He developed a right buttocks (ischial area) pressure sore over the past month. He denies sleeping on low air loss mattress because he is unable to move it the bed and he finds it very difficult to move and to breath. He wears CPAP at night that he states he must sleep on his back when wearing. He admits to sitting for long periods of time in his wheel chair. He sits on a cushion and a pillow. He states they have been putting a barrier cream on the area and he believes it is making it worse. He states it is painful to touch and to sit on. Subjective Subjective Mr. Gutierrez is a 69-year-old diabetic male presenting to wound care center today for follow-up and evaluation to right leg ulceration and left heel dry eschar. [facility] as he was unable to take care of himself at home. Patient states that he is not a big fan of the jail facility but it is the best option for him. He has been getting dressing changes as instructed at the facility. They have been taking care of him per his own words. He denies trauma. Denies constitutional symptoms. No other pedal complaints at this time. Objective Data Objective Data Vital Signs: Vital Signs Temp Pulse Resp BP O2 Del Method 97.5 F L 67 16 129/75 H Room Air 04/19/24 13:22 04/19/24 13:22 04/19/24 13:22 04/19/24 13:22 04/19/24 13:22 Oxygen Delivery Method Room Air Weight: 157.85 kg Body Mass Index (BMI) 44.6 Physical Exam Narrative Vascular: DP and PT pulses are palpable to the right lower extremity. Nonpitting edema appreciated to the right lower extremity. Skin temperature gradient is warm to warm from proximal ankles to distal digit. No focal increase appreciated. Neurological: Light touch intact. Patient response to painful stimuli. Protective sensation is diminished. Dermatological: Full-thickness ulceration to the lateral aspect of the right leg measuring 14.5 x 4.7 x 0.1 cm. Wound base is granular. No malodor or probe to bone. No sign of infection. Evidence of stage I pressure sore appreciated to the left heel measuring 1.4 x 1.5 x 0.1 cm. Excisional debridement of the lateral right leg ulceration down to including subcutaneous tissue with a number 7 mm dermal curette without incident. Predebridement measurement is 14.3 x 4.5 x 0.1 cm. postdebridement measurement is 14.5 x 4.7 x 0.1 cm. Excisional debridement of the left heel dry eschar down to including subcutaneous tissue with a #15 blade and pickup without incident. Predebridement measurement was eschar. Postdebridement measurement is 1.4 x 1.5 x 0.1 cm. Musculoskeletal: Mild pain to palpation to full-thickness ulceration. No pain with calf compression. Debridement Note Debridement Note Debridement Free Text: Excisional debridement of the lateral right leg ulceration down to including subcutaneous tissue with a number 7 mm dermal curette without incident. Predebridement measurement is 14.3 x 4.5 x 0.1 cm. postdebridement measurement is 14.5 x 4.7 x 0.1 cm. Excisional debridement of the left heel dry eschar down to including subcutaneous tissue with a #15 blade and pickup without incident. Predebridement measurement was eschar. Postdebridement measurement is 1.4 x 1.5 x 0.1 cm. 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 ) Arrival Mode Ambulatory,Cane Transfer Assistance None Transfer Assist (Other) caregiver Patient Identification Verified (Name & Yes ) Patient Requires Transmission-Based No Precautions Height and Weight Body Mass Index (BMI) 44.6 BMI Classification Obese Vital Signs Temperature (97.8 F-99.1 F) 97.5 F L Temperature Source Temporal Pulse Rate (60-100) 67 Pulse Location Monitor Respiratory Rate (12-18) 16 Respiratory rate source Observation Oxygen Delivery Method Room Air Blood Pressure (90/60-120/80) 129/75 H Blood Pressure Mean (mm Hg) 93 Source Monitor Position Sitting Blood Pressure Location Right Forearm History Since Last Visit- (Skip if this is Patient's initial visit) Have you changed medications since your No last visit? Any new allergies or adverse reactions No Had a fall/change in ADL's that may No increase risk of falls Signs or symptoms of abuse and/or No neglect since last visit Have you been in the hospital since your Yes last visit? Has dressing in place as prescribed Yes Has compression in place as prescribed Yes Has offloadiing in place as prescribed N/A Experienced any changes in pain level or No management Left Footwear Diabetic Shoe Right Footwear Diabetic Shoe Pain Scale: 0-10 Numeric Is Patient Pain Free? Yes - Nurse 1 - General Ulcer Measurement Start: 04/19/24 13:22 Freq: Status: Active Protocol: Activity Type Activity Date Activity User E-sign Co-sign Detail Recorded Client Recorded Date Recorded By Document 04/19/24 13:22 [facility] [id number] 04/19/24 13:35 [facility] 04/19/24 13:22 Wound Center Nurse 1 #7 LT HEEL -Combined with other wound No -Current Size (cm) - Length 1.2 -Current Size (cm) - Width 1.4 -Current Size (cm) - Depth 0.1 -Total Square Cm 1.68 -Epithelialization None Present -Tunneling No -Undermining/Tunneling No -Circular Undermining No -Exudate Amt Medium -Exudate Type Serosanguineous -Wound Margin Distinct, Outline Attached -Granulation Amt None Present (0 %) -Slough/Fibrin Yes -Necrosis Amt Large (67-100%) -Necrotic Tissue Type Eschar -Texture (Mariza-wound Skin Appearance) Assessed -Moisture (Mariza-wound Skin Appearance) Assessed,Dry/ Scaly -Color (Mariza-wound Skin Appearance) Assessed -Temperature (Mariza-wound Skin No Abnormality Appearance) (Pt Warm) -Ulcer Cleansing Soap and Water -Foul Odor after Cleansing No -Anesthetic Used 5% Lidocaine Gel #5 RT LAT LE POST-OP -Combined with other wound No -Current Size (cm) - Length 20.1 -Current Size (cm) - Width 5.2 -Current Size (cm) - Depth 0.1 -Total Square Cm 104.52 -Epithelialization Small 1-33% -Tunneling No -Undermining/Tunneling No -Circular Undermining No -Exudate Amt Large -Exudate Type Serosanguineous -Wound Margin Distinct, Outline Attached -Granulation Amt Large (67-100%) -Granulation Quality Red -Slough/Fibrin Yes -Necrosis Amt Small (1-33%) -Necrotic Tissue Type Adherent Slough -Texture (Mariza-wound Skin Appearance) Assessed -Moisture (Mariza-wound Skin Appearance) Assessed,Dry/ Scaly -Color (Mariza-wound Skin Appearance) Assessed -Temperature (Mariza-wound Skin No Abnormality Appearance) (Pt Warm) -Tenderness on Palpation (Mariza-wound No Skin Appearance) -Ulcer Cleansing Soap and Water -Foul Odor after Cleansing No -Anesthetic Used 5% Lidocaine Gel Lower Limb Edema Present Yes Right Calf (cm) 43 Right Ankle (cm) 27.5 WC - Nurse 2 - General Ulcer CM Notes Start: 04/19/24 13:22 Freq: Status: Active Protocol: Activity Type Activity Date Activity User E-sign Co-sign Detail Recorded Client Recorded Date Recorded By Document 04/19/24 13:52 [facility] [id number] 04/19/24 14:02 TALI 04/19/24 13:52 Wound Center Nurse 2 #7 LT HEEL -Time 13:59 -Correct Patient Yes -Correct Side, Site, Position Yes -Correct Procedure Yes -Procedure Performed Yes -Type of Procedure Debridement -Clinical Debridement Subcutaneous -Tissue Removed Subcutaneous -Post Debridement (cm) - Length 1.4 -Post Debridement (cm) - Width 1.5 -Post Debridement (cm) - Depth 0.1 -Total Square (Post) (cm) 2.10 -Area of Debridement (cm) - Length 1.4 -Area of Debridement (cm) - Width 1.5 -Total Square (Area) (cm) 2.10 -Tunneling No -Undermining/Tunneling No -Circular Undermining No -Wound/Ulcer Outcome Not Healed -Ulcer Cleansing Rinsed/ Irrigated with Saline -Foul Odor after Cleansing No -Bioengineered Tissue No -Bleeding Controlled with Pressure -Treatment Response Procedure Tolerated Well -Offloading No -Debridement - Subq, 1st 20sq cm No #5 RT LAT LE POST-OP -Time 13:53 -Correct Patient Yes -Correct Side, Site, Position Yes -Correct Procedure Yes -Procedure Performed Yes -Type of Procedure Debridement -Clinical Debridement Subcutaneous -Tissue Removed Subcutaneous -Post Debridement (cm) - Length 14.5 -Post Debridement (cm) - Width 4.7 -Post Debridement (cm) - Depth 0.1 -Total Square (Post) (cm) 68.15 -Area of Debridement (cm) - Length 14.5 -Area of Debridement (cm) - Width 4.7 -Total Square (Area) (cm) 68.15 -Tunneling No -Undermining/Tunneling No -Circular Undermining No -Wound/Ulcer Outcome Not Healed -Ulcer Cleansing Rinsed/ Irrigated with Saline -Foul Odor after Cleansing No -Bioengineered Tissue No -Bleeding Controlled with Pressure -Treatment Response Procedure Tolerated Well -Offloading No -Debridement - Subq, 1st 20sq cm Yes -Debridement, SubQ, ea addt'l 20sq cm 3 or part thereof Pain Scale: 0-10 Numeric Is Patient Pain Free? Yes WC - Nurse 3 - General Ulcer D/C NN Start: 04/19/24 13:22 Freq: Status: Active Protocol: Activity Type Activity Date Activity User E-sign Co-sign Detail Recorded Client Recorded Date Recorded By Document 04/19/24 14:15 HANNAH [id number] 04/19/24 14:18 KW 04/19/24 14:15 Wound Care Center Nurse 3 #7 LT HEEL -Primary Dressing Applied Fibracol Plus 4x4 -Primary Dressing Covered/Secured with Dry Gauze & Roll Gauze, Secured with Tape -Fibracol Plus 4x4 1 #5 RT LAT LE POST-OP -Other Dressing fibrocol -Primary Dressing Covered/Secured with Dry Gauze Right -Compression Wrap Celso Wrap Left -Tubular Bandage Double Layer -Size of Tubigrip Used Size E -Size E ($) 2 Pain Scale: 0-10 Numeric Is Patient Pain Free? Yes WC - Visit Discharge Discharge Condition Stable Ambulatory Status Ambulatory,Cane Medication Reconcilliation completed & No provided to patient/care provider Clinical Summary of Care Provided Yes Assessment/Plan Assessment/Plan (1) Non-pressure chronic ulcer of other part of right lower leg with fat layer exposed: CODE(S): L97.812 - Non-pressure chronic ulcer of other part of right lower leg with fat layer exposed PLAN: Patient was examined and evaluated. All findings were discussed with the patient. All questions were answered to the patient's satisfaction. Excisional debridement of the lateral right leg ulceration down to including subcutaneous tissue with a number 7 mm dermal curette without incident. Predebridement measurement is 14.3 x 4.5 x 0.1 cm. postdebridement measurement is 14.5 x 4.7 x 0.1 cm. Excisional debridement of the left heel dry eschar down to including subcutaneous tissue with a #15 blade and pickup without incident. Predebridement measurement was eschar. Postdebridement measurement is 1.4 x 1.5 x 0.1 cm. The bilateral lower extremities were cleaned and patted dry. Fibrin call followed by dry sterile dressing and compression wrap was applied to the right lower extremity. Betadine paint and sterile Band-Aid was applied to the left heel. Dressing change orders were given to [facility] facility. Will begin authorization for EpiFix to be applied to the left heel. Follow-up at the wound care center with Dr. Shannon in 1 week. (2) Non-pressure chronic ulcer of right heel and 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: CODE(S): L97.412 - Non-pressure chronic ulcer of right heel and 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 (3) Other specified peripheral vascular diseases: CODE(S): I73.89 - Other specified peripheral vascular diseases
[2024-04-26 14:37] VITALS: BP 127/71; PULSE 62; RESP 17; TEMP 36.2; BMI 44.6
[2024-05-03 10:31] VITALS: BP 156/81; PULSE 66; RESP 18; TEMP 36.5; BMI 44.6
--- NOTE | 2024-05-03 10:59 | PN.PCM_ITS ---
History of Present Illness Date of Service: 05/03/24 Chief Complaint: Right buttock ulceration History of Wound: This is a 68-year-old morbidly obese diabetic male who sees Dr. Shannon for 3 large ulcerations on the right lateral calf. He is a resident of [facility] in [place], [place]. He has a history of bilateral lower extremity deep vein thrombosis, and a venous duplex examination performed on October 22, 2023, revealed chronic changes in the right lower extremity deep venous system, with a normal superficial venous system. Management of the patient's wound had been by means of the snf [facility], Dr. Reyna, from [place], [place]. Approximately 1 week prior to presentation, the patient underwent placement of a left upper extremity PICC catheter and has been receiving vancomycin and Zosyn intravenously. The patient had been on chronic systemic anticoagulation with Eliquis until recently, which was discontinued as a result of his recent gastrointestinal bleeding. He developed a right buttocks (ischial area) pressure sore over the past month. He denies sleeping on low air loss mattress because he is unable to move it the bed and he finds it very difficult to move and to breath. He wears CPAP at night that he states he must sleep on his back when wearing. He admits to sitting for long periods of time in his wheel chair. He sits on a cushion and a pillow. He states they have been putting a barrier cream on the area and he believes it is making it worse. He states it is painful to touch and to sit on. Subjective Subjective Mr. Gutierrez is a 69-year-old male presenting to clinic today for follow-up evaluation of right leg ulceration and left heel pressure wound. He has been approved for skin graft substitutes. He has been getting dressing changes per medical staff at the [facility] facility. He denies any new onset of wounds. He denies trauma. Denies constitutional symptoms. No other pedal complaints at time. Objective Data Objective Data Vital Signs: Vital Signs Temp Pulse Resp BP O2 Del Method 97.7 F L 66 18 156/81 H Room Air 05/03/24 10:31 05/03/24 10:31 05/03/24 10:31 05/03/24 10:31 05/03/24 10:31 Oxygen Delivery Method Room Air Weight: 157.85 kg Body Mass Index (BMI) 44.6 Physical Exam Narrative Vascular: DP and PT pulses are palpable to the right lower extremity. Nonpitting edema appreciated to the right lower extremity. Skin temperature gradient is warm to warm from proximal ankles to distal digit. No focal increase appreciated. Neurological: Light touch intact. Patient response to painful stimuli. Protective sensation is diminished. Dermatological: Full-thickness ulceration to the lateral aspect of the right leg measuring 19.0 x 4.4 x 0.1 cm. Wound base is granular. No malodor or probe to bone. No sign of infection. Evidence of stage I pressure sore appreciated to the left heel measuring 1.2 x 1.2 x 0.1 cm. Wound base is granular in nature. Excisional debridement of the lateral right leg ulceration down to including subcutaneous tissue with a number 7 mm dermal curette without incident. Predebridement measurement is 18.8 x 4.2 x 0.1 cm.. postdebridement measurement is 19.0 x 4.4 x 0.1 cm. Excisional debridement of the left heel dry eschar down to including subcutaneous tissue with a number 3 mm dermal curette without incident. Predebridement measurement was eschar. Postdebridement measurement is 1.2 x 1.2 x 0.1 cm. EpiFix 18 mm disc was applied to the left full-thickness ulceration with 100% use. First application. The graft site was free and clear of any infection. The wound/skin graft substitute was dressed with nonadherent bandage secured in place with Steri-Strips followed by bolster dressing as well as a Celso wrap. Musculoskeletal: Mild pain to palpation to full-thickness ulceration. No pain with calf compression. Debridement Note Debridement Note Debridement Free Text: Excisional debridement of the lateral right leg ulceration down to including subcutaneous tissue with a number 7 mm dermal curette without incident. Predebridement measurement is 18.8 x 4.2 x 0.1 cm.. postdebridement measurement is 19.0 x 4.4 x 0.1 cm. Excisional debridement of the left heel dry eschar down to including subcutaneous tissue with a number 3 mm dermal curette without incident. Predebridement measurement was eschar. Postdebridement measurement is 1.2 x 1.2 x 0.1 cm. EpiFix 18 mm disc was applied to the left full-thickness ulceration with 100% use. First application. The graft site was free and clear of any infection. The wound/skin graft substitute was dressed with nonadherent bandage secured in place with Steri-Strips followed by bolster dressing as well as a Celso wrap. Post-Debridement Measurements and Additional Note: Post-Debridement Measurements/Treatment WC - Nurse 1 - General Ulcer Assessment Start: 04/19/24 13:22 Freq: Status: Active Protocol: GALE Activity Type Activity Date Activity User E-sign Co-sign Detail Recorded Client Recorded Date Recorded By Document 04/19/24 13:22 BMF [id number] 04/19/24 13:35 BMF Document 04/26/24 14:37 ML [id number] 04/26/24 14:42 ML Document 05/03/24 10:31 KW [id number] 05/03/24 10:43 KW 04/19/24 04/26/24 05/03/24 13:22 14:37 10:31 WC - Today's Visit Information Type of service Follow-up Visit Nurse-only Follow-up Visit (Physician/[facility]IEUT[facility]NT [employer]ISTICS Visit (Physician/[facility]NT [employer]IST[employer] ) ) Arrival Mode Ambulatory,Cane Ambulatory Ambulatory Transfer Assistance None None Transfer Assist (Other) caregiver Patient Identification Verified (Name & Yes Yes Yes ) Patient Requires Transmission-Based No No Precautions Height and Weight Body Mass Index (BMI) 44.6 44.6 44.6 BMI Classification Obese Obese Obese Vital Signs Temperature (97.8 F-99.1 F) 97.5 F L 97.2 F L 97.7 F L Temperature Source Temporal Temporal Temporal Pulse Rate (60-100) 67 62 66 Pulse Location Monitor Monitor Monitor Respiratory Rate (12-18) 16 17 18 Respiratory rate source Observation Observation Oxygen Delivery Method Room Air Room Air Blood Pressure (90/60-120/80) 129/75 H 127/71 H 156/81 H Blood Pressure Mean (mm Hg) 93 89 106 Source Monitor Monitor Monitor Position Sitting Sitting Semi-Fowlers Blood Pressure Location Right Forearm Left Arm Left Arm History Since Last Visit- (Skip if this is Patient's initial visit) Have you changed medications since your No No last visit? Any new allergies or adverse reactions No No Had a fall/change in ADL's that may No No increase risk of falls Signs or symptoms of abuse and/or No No neglect since last visit Have you been in the hospital since your Yes No last visit? Has dressing in place as prescribed Yes Yes Has compression in place as prescribed Yes Yes Has offloadiing in place as prescribed N/A N/A Experienced any changes in pain level or No No management Left Footwear Diabetic Shoe Regular Shoe Right Footwear Diabetic Shoe Regular Shoe Pain Scale: 0-10 Numeric Is Patient Pain Free? Yes Yes Yes WC - Nurse 1 - General Ulcer Measurement Start: 04/19/24 13:22 Freq: Status: Active Protocol: Activity Type Activity Date Activity User E-sign Co-sign Detail Recorded Client Recorded Date Recorded By Document 04/19/24 13:22 BMF [id number] 04/19/24 13:35 BMF Document 05/03/24 10:31 KW [id number] 05/03/24 10:43 KW 04/19/24 05/03/24 13:22 10:31 Wound Center Nurse 1 #7 LT HEEL -Combined with other wound No -Current Size (cm) - Length 1.2 1 -Current Size (cm) - Width 1.4 1 -Current Size (cm) - Depth 0.1 0.2 -Total Square Cm 1.68 1 -Date of Last Picture (Recall this 05/03/24 field) -Epithelialization None Present -Tunneling No -Undermining/Tunneling No -Circular Undermining No -Exudate Amt Medium Medium -Exudate Type Serosanguineous Serosanguineous -Wound Margin Distinct, Distinct, Outline Outline Attached Attached -Granulation Amt None Present (0 %) -Slough/Fibrin Yes -Necrosis Amt Large (67-100%) Large (67-100%) -Necrotic Tissue Type Eschar Adherent Slough -Texture (Mariza-wound Skin Appearance) Assessed Assessed -Moisture (Mariza-wound Skin Appearance) Assessed,Dry/ Assessed Scaly -Color (Mariza-wound Skin Appearance) Assessed Assessed -Temperature (Mariza-wound Skin No Abnormality No Abnormality Appearance) (Pt Warm) (Pt Warm) -Tenderness on Palpation (Mariza-wound No Skin Appearance) -Ulcer Cleansing Soap and Water Soap and Water -Foul Odor after Cleansing No No -Anesthetic Used 5% Lidocaine 4% Lidocaine Gel Solution #5 RT LAT LE POST-OP -Combined with other wound No -Current Size (cm) - Length 20.1 19 -Current Size (cm) - Width 5.2 4.5 -Current Size (cm) - Depth 0.1 0.1 -Total Square Cm 104.52 85.5 -Date of Last Picture (Recall this 05/03/24 field) -Epithelialization Small 1-33% Medium 34-66% -Tunneling No -Undermining/Tunneling No -Circular Undermining No -Exudate Amt Large Medium -Exudate Type Serosanguineous Serosanguineous -Wound Margin Distinct, Distinct, Outline Outline Attached Attached -Granulation Amt Large (67-100%) Large (67-100%) -Granulation Quality Red Red -Slough/Fibrin Yes -Necrosis Amt Small (1-33%) -Necrotic Tissue Type Adherent Slough -Texture (Mariza-wound Skin Appearance) Assessed Assessed -Moisture (Mariza-wound Skin Appearance) Assessed,Dry/ Assessed Scaly -Color (Mariza-wound Skin Appearance) Assessed Assessed -Temperature (Mariza-wound Skin No Abnormality No Abnormality Appearance) (Pt Warm) (Pt Warm) -Tenderness on Palpation (Mariza-wound No No Skin Appearance) -Ulcer Cleansing Soap and Water Soap and Water -Foul Odor after Cleansing No No -Anesthetic Used 5% Lidocaine 4% Lidocaine Gel Solution Lower Limb Edema Present Yes Right Calf (cm) 43 Right Ankle (cm) 27.5 WC - Nurse 2 - General Ulcer CM Notes Start: 04/19/24 13:22 Freq: Status: Active Protocol: Activity Type Activity Date Activity User E-sign Co-sign Detail Recorded Client Recorded Date Recorded By Document 04/19/24 13:52 [id number] 04/19/24 14:02 Document 05/03/24 10:49 [id number] 05/03/24 10:59 04/19/24 05/03/24 13:52 10:49 Wound Center Nurse 2 #7 LT HEEL -Time 13:59 10:52 -Correct Patient Yes Yes -Correct Side, Site, Position Yes Yes -Correct Procedure Yes Yes -Procedure Performed Yes Yes -Type of Procedure Debridement Debridement -Clinical Debridement Subcutaneous Subcutaneous -Tissue Removed Subcutaneous Subcutaneous -Post Debridement (cm) - Length 1.4 1.2 -Post Debridement (cm) - Width 1.5 1.2 -Post Debridement (cm) - Depth 0.1 0.1 -Total Square (Post) (cm) 2.10 1.44 -Area of Debridement (cm) - Length 1.4 1.2 -Area of Debridement (cm) - Width 1.5 0.2 -Total Square (Area) (cm) 2.10 0.24 -Tunneling No No -Undermining/Tunneling No No -Circular Undermining No No -Wound/Ulcer Outcome Not Healed Not Healed -Ulcer Cleansing Rinsed/ Rinsed/ Irrigated with Irrigated with Saline Saline -Foul Odor after Cleansing No No -Bioengineered Tissue No Yes -Type of Bioengineered Tissue Epifix 18mm Disc -Expiration Date 12/10/28 -Product Lot Number [id number] -Percent Used 100 -Lot number of Saline Used [id number] -Bleeding Controlled with Pressure Pressure -Treatment Response Procedure Procedure Tolerated Well Tolerated Well -Offloading No No -Debridement - Subq, 1st 20sq cm No No -Apply Skin Sub - 1st 25 sq cm - Feet 1 -Epifix 18mm Disc 3 #5 RT LAT LE POST-OP -Time 13:53 10:50 -Correct Patient Yes Yes -Correct Side, Site, Position Yes Yes -Correct Procedure Yes Yes -Procedure Performed Yes Yes -Type of Procedure Debridement Debridement -Clinical Debridement Subcutaneous Subcutaneous -Tissue Removed Subcutaneous Subcutaneous -Post Debridement (cm) - Length 14.5 19.0 -Post Debridement (cm) - Width 4.7 4.4 -Post Debridement (cm) - Depth 0.1 0.1 -Total Square (Post) (cm) 68.15 83.60 -Area of Debridement (cm) - Length 14.5 19 -Area of Debridement (cm) - Width 4.7 4.4 -Total Square (Area) (cm) 68.15 83.6 -Tunneling No No -Undermining/Tunneling No No -Circular Undermining No No -Wound/Ulcer Outcome Not Healed Not Healed -Ulcer Cleansing Rinsed/ Rinsed/ Irrigated with Irrigated with Saline Saline -Foul Odor after Cleansing No No -Bioengineered Tissue No No -Bleeding Controlled with Pressure Pressure -Treatment Response Procedure Procedure Tolerated Well Tolerated Well -Offloading No No -Debridement - Subq, 1st 20sq cm Yes Yes -Debridement, SubQ, ea addt'l 20sq cm 3 4 or part thereof Pain Scale: 0-10 Numeric Is Patient Pain Free? Yes Yes WC - Nurse 3 - General Ulcer D/C NN Start: 04/19/24 13:22 Freq: Status: Active Protocol: Activity Type Activity Date Activity User E-sign Co-sign Detail Recorded Client Recorded Date Recorded By Document 04/19/24 14:15 KW [id number] 04/19/24 14:18 KW Document 04/26/24 14:37 ML [id number] 04/26/24 14:42 ML 04/19/24 04/26/24 14:15 14:37 Wound Care Center Nurse 3 #7 LT HEEL -Primary Dressing Applied Fibracol Plus Mepilex Border 4x4 -Other Dressing betadine -Primary Dressing Covered/Secured with Dry Gauze & Dry Gauze Roll Gauze, Secured with Tape -Fibracol Plus 4x4 1 -Mepilex Border 1 #5 RT LAT LE POST-OP -Ulcer Cleansing Soap and Water -Foul Odor after Cleansing No -Primary Dressing Applied Fibracol Plus 4x4 -Other Dressing fibrocol -Primary Dressing Covered/Secured with Dry Gauze Dry Gauze,Dry Gauze & Roll Gauze,Secured with Tape -Fibracol Plus 4x4 1 Right -Compression Wrap Celso Wrap Celso Wrap Left -Tubular Bandage Double Layer Double Layer -Size of Tubigrip Used Size E Size E -Size E ($) 2 2 Vital Signs Temperature (97.8 F-99.1 F) 97.2 F L Temperature Source Temporal Pulse Rate (60-100) 62 Pulse Location Monitor Respiratory Rate (12-18) 17 Blood Pressure (90/60-120/80) 127/71 H Blood Pressure Mean (mm Hg) 89 Source Monitor Position Sitting Blood Pressure Location Left Arm Pain Scale: 0-10 Numeric Is Patient Pain Free? Yes Yes WC - Visit Discharge Discharge Condition Stable Ambulatory Status Ambulatory,Cane Medication Reconcilliation completed & No provided to patient/care provider Clinical Summary of Care Provided Yes Assessment/Plan Assessment/Plan (1) Non-pressure chronic ulcer of other part of right lower leg with fat layer exposed: CODE(S): L97.812 - Non-pressure chronic ulcer of other part of right lower leg with fat layer exposed PLAN: Patient was examined and evaluated. All findings were discussed with the patient. All questions were answered to the patient's satisfaction. Excisional debridement of the lateral right leg ulceration down to including subcutaneous tissue with a number 7 mm dermal curette without incident. Predebridement measurement is 18.8 x 4.2 x 0.1 cm.. postdebridement measurement is 19.0 x 4.4 x 0.1 cm. Excisional debridement of the left heel dry eschar down to including subcutaneous tissue with a number 3 mm dermal curette without incident. Predebridement measurement was eschar. Postdebridement measurement is 1.2 x 1.2 x 0.1 cm. EpiFix 18 mm disc was applied to the left full-thickness ulceration with 100% use. First application. The graft site was free and clear of any infection. The wound/skin graft substitute was dressed with nonadherent bandage secured in place with Steri-Strips followed by bolster dressing as well as a Celso wrap. Orders will be given for the snf to change right lower extremity every other day with collagen dry sterile dressing and Celso wrap. The left lower extremity heel/graft will be left clean dry and intact and not to be removed. Patient will continue strict blood sugar control. Follow-up at the wound care center with Dr. Shannon in 1 week. (2) Non-pressure chronic ulcer of right heel and 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: CODE(S): L97.412 - Non-pressure chronic ulcer of right heel and 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 (3) Other specified peripheral vascular diseases: CODE(S): I73.89 - Other specified peripheral vascular diseases
--- NOTE | 2024-05-05 10:21 | WC ---
PHOTO 05/03/24 LEFT HEEL
--- NOTE | 2024-05-05 10:21 | WC ---
PHOTO 05/03/24 RIGHT POST OP
[2024-05-10 08:28] VITALS: BP 164/79; PULSE 62; RESP 18; TEMP 36.4; BMI 44.6
--- NOTE | 2024-05-10 09:45 | PCM.WC.PN ---
History of Present Illness Date of Service: 05/10/24 Chief Complaint: Right buttock ulceration History of Wound: This is a 68-year-old morbidly obese diabetic male who sees Dr. Shannon for 3 large ulcerations on the right lateral calf. He is a resident of [facility] in [place], [place]. He has a history of bilateral lower extremity deep vein thrombosis, and a venous duplex examination performed on October 22, 2023, revealed chronic changes in the right lower extremity deep venous system, with a normal superficial venous system. Management of the patient's wound had been by means of the long term [facility], Dr. Reyna, from [place], [place]. Approximately 1 week prior to presentation, the patient underwent placement of a left upper extremity PICC catheter and has been receiving vancomycin and Zosyn intravenously. The patient had been on chronic systemic anticoagulation with Eliquis until recently, which was discontinued as a result of his recent gastrointestinal bleeding. He developed a right buttocks (ischial area) pressure sore over the past month. He denies sleeping on low air loss mattress because he is unable to move it the bed and he finds it very difficult to move and to breath. He wears CPAP at night that he states he must sleep on his back when wearing. He admits to sitting for long periods of time in his wheel chair. He sits on a cushion and a pillow. He states they have been putting a barrier cream on the area and he believes it is making it worse. He states it is painful to touch and to sit on. Subjective Subjective Mr. Gutierrez is a 69-year-old diabetic male presenting the wound care center today for follow-up evaluation of right leg full-thickness ulceration and left heel full-thickness ulceration. Patient has been compliant with dressing changes at the nursing facility he has left the graft site clean dry and intact. He admits that they are not placing collagen but Xeroform on the right leg which is not compliant with our orders. He also is not having his left lower extremity wrapped with Celso wrap which is also noncompliant with our order. Overall he admits to being pain-free. Blood sugar under control. Denies any falls. Denies trauma. Denies constitutional symptoms. No other pedal complaints at this time. Objective Data Objective Data Vital Signs: Vital Signs Temp Pulse Resp BP O2 Del Method 97.6 F L 62 18 164/79 H Room Air 05/10/24 08:28 05/10/24 08:28 05/10/24 08:28 05/10/24 08:28 05/10/24 08:28 Oxygen Delivery Method Room Air Weight: 157.85 kg Body Mass Index (BMI) 44.6 Physical Exam Narrative Vascular: DP and PT pulses are palpable to the right lower extremity. Nonpitting edema appreciated to the right lower extremity. Skin temperature gradient is warm to warm from proximal ankles to distal digit. No focal increase appreciated. Neurological: Light touch intact. Patient response to painful stimuli. Protective sensation is diminished. Dermatological: Full-thickness ulceration to the lateral aspect of the right leg measuring 18.8 x 4.4 x 0.1 cm. Wound base is granular. No malodor or probe to bone. No sign of infection. Full-thickness ulceration appreciated to the left heel measuring 1.3 x 1.3 x 0.2 cm. Wound base is granular nature. Excisional debridement of the lateral right leg ulceration down to including subcutaneous tissue with a number 7 mm dermal curette without incident. Predebridement measurement is 18.5 x 4.0 x 0.1 cm. Postdebridement measurement is 18.8 x 4.4 x 0.1 cm. Excisional debridement of the left heel dry eschar down to including subcutaneous tissue with a number 3 mm dermal curette without incident. Predebridement measurement was 1.2 x 1.2 x 0.1 cm. Postdebridement measurement is 1.3 x 1.3 x 0.2 cm. EpiFix 18 mm disc was applied to the left full-thickness ulceration with 100% use. Second application. The graft site was free and clear of any infection. The wound/skin graft substitute was dressed with nonadherent bandage secured in place with Steri-Strips followed by bolster dressing as well as a Celso wrap. Musculoskeletal: Mild pain to palpation to full-thickness ulceration. No pain with calf compression. Debridement Note Debridement Note Debridement Free Text: Excisional debridement of the lateral right leg ulceration down to including subcutaneous tissue with a number 7 mm dermal curette without incident. Predebridement measurement is 18.5 x 4.0 x 0.1 cm. Postdebridement measurement is 18.8 x 4.4 x 0.1 cm. Excisional debridement of the left heel dry eschar down to including subcutaneous tissue with a number 3 mm dermal curette without incident. Predebridement measurement was 1.2 x 1.2 x 0.1 cm. Postdebridement measurement is 1.3 x 1.3 x 0.2 cm. EpiFix 18 mm disc was applied to the left full-thickness ulceration with 100% use. Second application. The graft site was free and clear of any infection. The wound/skin graft substitute was dressed with nonadherent bandage secured in place with Steri-Strips followed by bolster dressing as well as a Celso wrap. Post-Debridement Measurements and Additional Note: Post-Debridement Measurements/Treatment WC - Nurse 1 - General Ulcer Assessment Start: 04/19/24 13:22 Freq: Status: Active Protocol: GALE Activity Type Activity Date Activity User E-sign Co-sign Detail Recorded Client Recorded Date Recorded By Document 04/19/24 13:22 BMF [id number] 04/19/24 13:35 BMF Document 04/26/24 14:37 ML [id number] 04/26/24 14:42 ML Document 05/03/24 10:31 KW [id number] 05/03/24 10:43 KW Document 05/10/24 08:28 KW [id number] 05/10/24 08:37 KW 04/19/24 04/26/24 05/03/24 13:22 14:37 10:31 - Today's Visit Information Type of service Follow-up Visit Nurse-only Follow-up Visit (Physician/MANAGER PROVIDER RELATIONS Visit (Physician/MANAGER PROVIDER RELATIONS ) ) Arrival Mode Ambulatory,Cane Ambulatory Ambulatory Transfer Assistance None None Transfer Assist (Other) caregiver Patient Identification Verified (Name & Yes Yes Yes ) Patient Requires Transmission-Based No No Precautions Height and Weight Body Mass Index (BMI) 44.6 44.6 44.6 BMI Classification Obese Obese Obese Vital Signs Temperature (97.8 F-99.1 F) 97.5 F L 97.2 F L 97.7 F L Temperature Source Temporal Temporal Temporal Pulse Rate (60-100) 67 62 66 Pulse Location Monitor Monitor Monitor Respiratory Rate (12-18) 16 17 18 Respiratory rate source Observation Observation Oxygen Delivery Method Room Air Room Air Blood Pressure (90/60-120/80) 129/75 H 127/71 H 156/81 H Blood Pressure Mean (mm Hg) 93 89 106 Source Monitor Monitor Monitor Position Sitting Sitting Semi-Fowlers Blood Pressure Location Right Forearm Left Arm Left Arm History Since Last Visit- (Skip if this is Patient's initial visit) Have you changed medications since your No No last visit? Any new allergies or adverse reactions No No Had a fall/change in ADL's that may No No increase risk of falls Signs or symptoms of abuse and/or No No neglect since last visit Have you been in the hospital since your Yes No last visit? Has dressing in place as prescribed Yes Yes Has compression in place as prescribed Yes Yes Has offloadiing in place as prescribed N/A N/A Experienced any changes in pain level or No No management Left Footwear Diabetic Shoe Regular Shoe Right Footwear Diabetic Shoe Regular Shoe Pain Scale: 0-10 Numeric Is Patient Pain Free? Yes Yes Yes 05/10/24 08:28 WC - Today's Visit Information Type of service Follow-up Visit (Physician/MANAGER PROVIDER RELATIONS ) Arrival Mode Ambulatory Transfer Assistance Transfer Assist (Other) Patient Identification Verified (Name & Yes ) Patient Requires Transmission-Based Precautions Height and Weight Body Mass Index (BMI) 44.6 BMI Classification Obese Vital Signs Temperature (97.8 F-99.1 F) 97.6 F L Temperature Source Temporal Pulse Rate (60-100) 62 Pulse Location Monitor Respiratory Rate (12-18) 18 Respiratory rate source Observation Oxygen Delivery Method Room Air Blood Pressure (90/60-120/80) 164/79 H Blood Pressure Mean (mm Hg) 107 Source Monitor Position Sitting Blood Pressure Location Left Arm History Since Last Visit- (Skip if this is Patient's initial visit) Have you changed medications since your No last visit? Any new allergies or adverse reactions No Had a fall/change in ADL's that may No increase risk of falls Signs or symptoms of abuse and/or No neglect since last visit Have you been in the hospital since your No last visit? Has dressing in place as prescribed Yes Has compression in place as prescribed Yes Has offloadiing in place as prescribed N/A Experienced any changes in pain level or No management Left Footwear Regular Shoe Right Footwear Regular Shoe Pain Scale: 0-10 Numeric Is Patient Pain Free? Yes - Nurse 1 - General Ulcer Measurement Start: 04/19/24 13:22 Freq: Status: Active Protocol: Activity Type Activity Date Activity User E-sign Co-sign Detail Recorded Client Recorded Date Recorded By Document 04/19/24 13:22 BM [id number] 04/19/24 13:35 BM Document 05/03/24 10:31 KW [id number] 05/03/24 10:43 KW Document 05/10/24 08:28 KW [id number] 05/10/24 08:37 KW 04/19/24 05/03/24 05/10/24 13:22 10:31 08:28 Wound Center Nurse 1 #7 LT HEEL -Combined with other wound No -Current Size (cm) - Length 1.2 1 0.1 -Current Size (cm) - Width 1.4 1 0.1 -Current Size (cm) - Depth 0.1 0.2 0.1 -Total Square Cm 1.68 1 0.01 -Date of Last Picture (Recall this 05/03/24 field) -Epithelialization None Present -Tunneling No -Undermining/Tunneling No -Circular Undermining No -Exudate Amt Medium Medium None Present -Exudate Type Serosanguineous Serosanguineous -Wound Margin Distinct, Distinct, Outline Outline Attached Attached -Granulation Amt None Present (0 %) -Slough/Fibrin Yes -Necrosis Amt Large (67-100%) Large (67-100%) Large (67-100%) -Necrotic Tissue Type Eschar Adherent Slough Eschar -Texture (Mariza-wound Skin Appearance) Assessed Assessed Assessed -Moisture (Mariza-wound Skin Appearance) Assessed,Dry/ Assessed Assessed Scaly -Color (Mariza-wound Skin Appearance) Assessed Assessed Assessed -Temperature (Mariza-wound Skin No Abnormality No Abnormality No Abnormality Appearance) (Pt Warm) (Pt Warm) (Pt Warm) -Tenderness on Palpation (Mariza-wound No No Skin Appearance) -Ulcer Cleansing Soap and Water Soap and Water Soap and Water -Foul Odor after Cleansing No No No -Anesthetic Used 5% Lidocaine 4% Lidocaine 5% Lidocaine Gel Solution Gel #5 RT LAT LE POST-OP -Combined with other wound No -Current Size (cm) - Length 20.1 19 19.5 -Current Size (cm) - Width 5.2 4.5 4 -Current Size (cm) - Depth 0.1 0.1 0.1 -Total Square Cm 104.52 85.5 78.0 -Date of Last Picture (Recall this 05/03/24 field) -Epithelialization Small 1-33% Medium 34-66% -Tunneling No -Undermining/Tunneling No -Circular Undermining No -Exudate Amt Large Medium Medium -Exudate Type Serosanguineous Serosanguineous Serosanguineous -Wound Margin Distinct, Distinct, Distinct, Outline Outline Outline Attached Attached Attached -Granulation Amt Large (67-100%) Large (67-100%) Large (67-100%) -Granulation Quality Red Red Red -Slough/Fibrin Yes -Necrosis Amt Small (1-33%) -Necrotic Tissue Type Adherent Slough -Texture (Mariza-wound Skin Appearance) Assessed Assessed Assessed -Moisture (Mariza-wound Skin Appearance) Assessed,Dry/ Assessed Assessed Scaly -Color (Mariza-wound Skin Appearance) Assessed Assessed Assessed -Temperature (Mariza-wound Skin No Abnormality No Abnormality No Abnormality Appearance) (Pt Warm) (Pt Warm) (Pt Warm) -Tenderness on Palpation (Mariza-wound No No No Skin Appearance) -Ulcer Cleansing Soap and Water Soap and Water Soap and Water -Foul Odor after Cleansing No No No -Anesthetic Used 5% Lidocaine 4% Lidocaine 4% Lidocaine Gel Solution Solution Lower Limb Edema Present Yes Right Calf (cm) 43 40.6 Right Ankle (cm) 27.5 28 Left Calf (cm) 41 Left Ankle (cm) 27.5 WC - Nurse 2 - General Ulcer CM Notes Start: 04/19/24 13:22 Freq: Status: Active Protocol: Activity Type Activity Date Activity User E-sign Co-sign Detail Recorded Client Recorded Date Recorded By Document 04/19/24 13:52 [id number] 04/19/24 14:02 Document 05/03/24 10:49 [id number] 05/03/24 10:59 Document 05/10/24 08:48 [id number] 05/10/24 08:59 04/19/24 05/03/24 05/10/24 13:52 10:49 08:48 Wound Center Nurse 2 #7 LT HEEL -Time 13:59 10:52 08:49 -Correct Patient Yes Yes Yes -Correct Side, Site, Position Yes Yes Yes -Correct Procedure Yes Yes Yes -Procedure Performed Yes Yes Yes -Type of Procedure Debridement Debridement Debridement -Clinical Debridement Subcutaneous Subcutaneous Subcutaneous -Tissue Removed Subcutaneous Subcutaneous Subcutaneous -Post Debridement (cm) - Length 1.4 1.2 1.3 -Post Debridement (cm) - Width 1.5 1.2 1.3 -Post Debridement (cm) - Depth 0.1 0.1 0.2 -Total Square (Post) (cm) 2.10 1.44 1.69 -Area of Debridement (cm) - Length 1.4 1.2 1.3 -Area of Debridement (cm) - Width 1.5 0.2 1.3 -Total Square (Area) (cm) 2.10 0.24 1.69 -Tunneling No No No -Undermining/Tunneling No No No -Circular Undermining No No No -Wound/Ulcer Outcome Not Healed Not Healed Not Healed -Ulcer Cleansing Rinsed/ Rinsed/ Rinsed/ Irrigated with Irrigated with Irrigated with Saline Saline Saline -Foul Odor after Cleansing No No No -Bioengineered Tissue No Yes Yes -Type of Bioengineered Tissue Epifix 18mm Epifix 18mm Disc Disc -Expiration Date 12/10/28 11/09/28 -Product Lot Number [id number] -Percent Used 100 100 -Lot number of Saline Used [id number] -Bleeding Controlled with Pressure Pressure Pressure -Treatment Response Procedure Procedure Procedure Tolerated Well Tolerated Well Tolerated Well -Offloading No No No -Debridement - Subq, 1st 20sq cm No No No -Apply Skin Sub - 1st 25 sq cm - Feet 1 1 -Epifix 18mm Disc 3 #5 RT LAT LE POST-OP -Time 13:53 10:50 08:48 -Correct Patient Yes Yes Yes -Correct Side, Site, Position Yes Yes Yes -Correct Procedure Yes Yes Yes -Procedure Performed Yes Yes Yes -Type of Procedure Debridement Debridement Debridement -Clinical Debridement Subcutaneous Subcutaneous Subcutaneous -Tissue Removed Subcutaneous Subcutaneous -Post Debridement (cm) - Length 14.5 19.0 18.8 -Post Debridement (cm) - Width 4.7 4.4 4.4 -Post Debridement (cm) - Depth 0.1 0.1 0.1 -Total Square (Post) (cm) 68.15 83.60 82.72 -Area of Debridement (cm) - Length 14.5 19 18.8 -Area of Debridement (cm) - Width 4.7 4.4 4.4 -Total Square (Area) (cm) 68.15 83.6 82.72 -Tunneling No No No -Undermining/Tunneling No No No -Circular Undermining No No No -Wound/Ulcer Outcome Not Healed Not Healed Not Healed -Ulcer Cleansing Rinsed/ Rinsed/ Rinsed/ Irrigated with Irrigated with Irrigated with Saline Saline Saline -Foul Odor after Cleansing No No No -Bioengineered Tissue No No No -Bleeding Controlled with Pressure Pressure Pressure -Treatment Response Procedure Procedure Procedure Tolerated Well Tolerated Well Tolerated Well -Offloading No No No -Debridement - Subq, 1st 20sq cm Yes Yes Yes -Debridement, SubQ, ea addt'l 20sq cm 3 4 4 or part thereof Pain Scale: 0-10 Numeric Is Patient Pain Free? Yes Yes Yes WC - Nurse 3 - General Ulcer D/C NN Start: 04/19/24 13:22 Freq: Status: Active Protocol: Activity Type Activity Date Activity User E-sign Co-sign Detail Recorded Client Recorded Date Recorded By Document 04/19/24 14:15 KW [id number] 04/19/24 14:18 KW Document 04/26/24 14:37 ML [id number] 04/26/24 14:42 ML Document 05/03/24 11:15 [facility] [id number] 05/03/24 11:17 BMF Document 05/10/24 09:17 RB [id number] 05/10/24 09:18 RB 04/19/24 04/26/24 05/03/24 14:15 14:37 11:15 Wound Care Center Nurse 3 #7 LT HEEL -Primary Dressing Applied Fibracol Plus Mepilex Border 4x4 -Other Dressing betadine EPI -Primary Dressing Covered/Secured with Dry Gauze & Dry Gauze Dry Gauze & Roll Gauze, Roll Gauze, Secured with Secured with Tape Tape -Other Covering HEEL HAT -Fibracol Plus 4x4 1 -Mepilex Border 1 #5 RT LAT LE POST-OP -Ulcer Cleansing Soap and Water Soap and Water -Foul Odor after Cleansing No No -Primary Dressing Applied Fibracol Plus Fibracol Plus 4x4 4x4 -Other Dressing fibrocol ABD -Primary Dressing Covered/Secured with Dry Gauze Dry Gauze,Dry Dry Gauze & Gauze & Roll Roll Gauze, Gauze,Secured Secured with with Tape Tape -Fibracol Plus 4x4 1 2 -Wound Comment(s) PT STATES ECF HAS ONLY BEEN APPLYING XEROFORM TO R LEG WOUND. CM NOTIFIED. Right -Compression Wrap Celso Wrap Celso Wrap Left -Tubular Bandage Double Layer Double Layer -Size of Tubigrip Used Size E Size E -Size E ($) 2 2 BLE -Compression Wrap Celso Wrap -Other Treatment Response Procedure Tolerated Well Vital Signs Temperature (97.8 F-99.1 F) 97.2 F L Temperature Source Temporal Pulse Rate (60-100) 62 Pulse Location Monitor Respiratory Rate (12-18) 17 Blood Pressure (90/60-120/80) 127/71 H Blood Pressure Mean (mm Hg) 89 Source Monitor Position Sitting Blood Pressure Location Left Arm Pain Scale: 0-10 Numeric Is Patient Pain Free? Yes Yes Yes WC - Visit Discharge Discharge Condition Stable Stable Ambulatory Status Ambulatory,Cane Ambulatory Transportation ECF Medication Reconcilliation completed & No provided to patient/care provider Clinical Summary of Care Provided Yes Facility Type [facility] Care Facility 05/10/24 09:17 Wound Care Center Nurse 3 #7 LT HEEL -Primary Dressing Applied -Other Dressing nurses hat -Primary Dressing Covered/Secured with Dry Gauze,Dry Gauze & Roll Gauze,Secured with Tape -Other Covering -Fibracol Plus 4x4 -Mepilex Border #5 RT LAT LE POST-OP -Ulcer Cleansing Rinsed/ Irrigated with Saline -Foul Odor after Cleansing -Primary Dressing Applied Fibracol Plus 4x4 -Other Dressing abd -Primary Dressing Covered/Secured with Dry Gauze,Dry Gauze & Roll Gauze,Secured with Tape -Fibracol Plus 4x4 2 -Wound Comment(s) Right -Compression Wrap Left -Tubular Bandage -Size of Tubigrip Used -Size E ($) BLE -Compression Wrap -Other celso Treatment Response Procedure Tolerated Well Vital Signs Temperature (97.8 F-99.1 F) Temperature Source Pulse Rate (60-100) Pulse Location Respiratory Rate (12-18) Blood Pressure (90/60-120/80) Blood Pressure Mean (mm Hg) Source Position Blood Pressure Location Pain Scale: 0-10 Numeric Is Patient Pain Free? Yes WC - Visit Discharge Discharge Condition Stable Ambulatory Status Ambulatory Transportation [facility] Medication Reconcilliation completed & No provided to patient/care provider Clinical Summary of Care Provided Yes Facility Type Assessment/Plan Assessment/Plan (1) Non-pressure chronic ulcer of other part of right lower leg with fat layer exposed: CODE(S): L97.812 - Non-pressure chronic ulcer of other part of right lower leg with fat layer exposed PLAN: Patient was examined and evaluated. All findings were discussed with the patient. All questions were answered to the patient's satisfaction. Excisional debridement of the lateral right leg ulceration down to including subcutaneous tissue with a number 7 mm dermal curette without incident. Predebridement measurement is 18.5 x 4.0 x 0.1 cm. Postdebridement measurement is 18.8 x 4.4 x 0.1 cm. Excisional debridement of the left heel dry eschar down to including subcutaneous tissue with a number 3 mm dermal curette without incident. Predebridement measurement was 1.2 x 1.2 x 0.1 cm. Postdebridement measurement is 1.3 x 1.3 x 0.2 cm. EpiFix 18 mm disc was applied to the left full-thickness ulceration with 100% use. Second application. The graft site was free and clear of any infection. The wound/skin graft substitute was dressed with nonadherent bandage secured in place with Steri-Strips followed by bolster dressing as well as a Celso wrap. Orders will be given for the long term to change right lower extremity every other day with collagen dry sterile dressing and Celso wrap. The left lower extremity heel/graft will be left clean dry and intact and not to be removed. Patient will continue strict blood sugar control. Patient will be booked for surgical surgical skin graft site prep with application of skin graft substitute to bilateral full-thickness wound with the patient is medically cleared. The patient will follow-up with Dr. Montoya in 1 week then, follow-up at the wound care center with Dr. Shannon in 2 week. (2) Non-pressure chronic ulcer of left heel and 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: CODE(S): L97.422 - Non-pressure chronic ulcer of left heel and 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 (3) Other specified peripheral vascular diseases: CODE(S): I73.89 - Other specified peripheral vascular diseases
--- NOTE | 2024-05-11 09:37 | WC ---
PHOTO 05/10/24 RIGHT LATERAL LEG
--- NOTE | 2024-05-11 09:39 | WC ---
PHOTO 05/10/24 RIGHT LATERAL LEG
== END 2024-05-11 23:59 | disposition home or self-care (01) ==
LOC: WC 08:30
PROVIDERS: Referring Provider Surgery; Visit Provider Podiatrist Foot & Ankle Surgery
DX: L97.412 Non-pressure chronic ulcer of right heel and 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 (principal); L97.812 Non-pressure chronic ulcer of other part of right lower leg with fat layer exposed; L97.422 Non-pressure chronic ulcer of left heel and 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; I48.91 Unspecified atrial fibrillation; E66.01 Morbid (severe) obesity due to excess calories; Z68.41 Body mass index [BMI] 40.0-44.9, adult; Z99.89 Dependence on other enabling machines and devices; I73.89 Other specified peripheral vascular diseases
CPT/HCPCS: 11042; 11045; 15275; 99213; Q4186; G0463

== ENCOUNTER 2024-06-05 11:30 | Day surgery (SDC) | payer MEDICARE, SELFPAY ==
[2024-06-05] VITALS (7 sets, daily range): BP systolic 132–152; BP diastolic 66–76; PULSE 50–55; RESP 12–18; TEMP 35.9–36.2; O2SAT 91–98; BMI 36.0
--- NOTE | 2024-06-05 11:53 | PCM.PRE.AN2 ---
ASA Classification* ASA Classification ASA Classification: 3 Assessment & Plan Anesthesia* Anesthesia Assessment Anesthesia Assessment: Discussed sedation and/or anesthesia options, risks, benefits, and alternatives with patient/parents/legal guardian/POA. Questions invited. The patient/parents/legal guardian/POA seems to understand and agrees to proceed with anesthesia plan. Reviewed the physical assessment, medical history, allergy history and patient home medications list prior to surgery/procedure/anesthetic and documented any changes. Performed airway and anesthesia risk assessments. Anesthesia Type Anesthesia Type: General Anesthesia Focused Assessment* Airway Assessment Mouth opens: >3 cm Mallampati Score: II Focused Labs Anesthesia Preop lab: CBC WBC 4.7 K/mm3 (4.4-11.0) 01/08/24 07:53 RBC 3.27 M/mm3 (4.6-6.2) L 01/08/24 07:53 Hgb 8.7 g/dL (13.0-16.5) L 01/08/24 07:53 Hct 29.1 % (40-54) L 01/08/24 07:53 Plt Count 147 K/mm3 (150-450) L 01/08/24 07:53 CHEMISTRY Potassium 4.2 mmol/L (3.5-5.1) 01/08/24 07:53 Sodium 138 mmol/L (136-145) 01/08/24 07:53 Magnesium 2.2 mg/dL (1.6-2.6) 01/04/24 05:21 Phosphorus 3.5 mg/dL (2.5-4.9) 01/04/24 05:21 BUN 23 mg/dL (7-18) H 01/08/24 07:53 Creatinine 1.08 mg/dL (0.70-1.30) 01/08/24 07:53 Glucose 123 mg/dL (74-106) H 01/08/24 07:53 POC Glucose 141 mg/dL (74-106) H 01/08/24 11:43 COAG PT 16.2 SECONDS (11.7-14.9) H 01/06/24 03:45 Pre-Assessment Diagnosis/Proposed Procedure Planned Operative Procedure(s): BILAT SURGICAL SKIN GRAFT SITE PREP WITHJ APPLICATION OF SKIN GRAFT SUBSTITUTE Anesthesia History Anesthesia History - radiology ct technologist: Anesthesia History - radiology ct technologist Hx Hospitalization Yes 06/01/24 12:00 Any Problems With Anesthesia No 06/01/24 12:00 Cholinesterase deficiency No 06/01/24 12:00 You/Your Family Experience No 06/01/24 12:00 fever (hyperthermia) with Relationship Recent Exposure to Contagious No 01/06/24 10:40 Disease Does patient have nerve No 06/01/24 12:00 stimulator Patient instructed to have device shut off --Does patient have Pacemaker or ICD? When Was Last Pacemaker Check QUESTION #4 FULL TEXT: You/Your Family Experience fever (hyperthermia) with Anesthesia Last Oral Intake Last Oral intake: Last Oral Intake NPO since Meds taken in AM with sips of water? Meds patient instructed to take am of surgery PONV PONV - radiology ct technologist: PONV - radiology ct technologist Female No 06/01/24 12:00 HX of Motion Sickness No 06/01/24 12:00 HX of N/V After Surgery No 06/01/24 12:00 Non-Smoker Yes 06/01/24 12:00 Duration of Surgery greater Yes 06/01/24 12:00 than 60 minutes Number of Risk Factors 2 06/01/24 12:00 PONV Score Moderate Risk 06/01/24 12:00 Height & Weight Height & Weight: Anesthesia: Height & Weight Height 6 ft 2 in 01/06/24 12:03 Respiratory Assessment Respiratory Assessment - radiology ct technologist: Respiratory Tract Infection Hx - radiology ct technologist Hx Respiratory Tract Infection No 06/01/24 12:00 STOP Sleep Apnea STOP Sleep Apnea - radiology ct technologist: STOP Sleep Apnea - radiology ct technologist Hx Hypertension Yes 06/01/24 12:00 Hx Sleep Apnea Yes 06/01/24 12:00 CPAP Yes: wears cpap at night 06/01/24 12:00 BIPAP No 06/01/24 12:00 Do you snore loudly (louder than talking or can be heard Do you often feel tired/ fatigued/ sleepy during daytime? Has anyone observed you stop breathing during sleep? STOP Results Positive 06/01/24 12:00 QUESTION #5 FULL TEXT : Do you snore loudly (louder than talking or can be heard through closed doors)? 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 Specify any problems Hx of Preganancy in last 3 N/A 06/01/24 12:00 Months Nurse Filling Out Transfusion DSCHRIBER 06/01/24 12:00 & Questions: Date: 06/01/24 06/01/24 12:00 Time: 12:06/01/24 12:00 Patient unable to answer at this time (ie. confused, unrespo /Reproduction History /Reproductive History - radiology ct technologist: /Reproductive Hx- radiology ct technologist Hx Now No 06/01/24 12:00 Gestational Age (in weeks): EDC: Hx Hx Para Hx Section SAB No 06/01/24 12:00 Active Medications Active Medications: Current Medications Generic Name Dose Route Start Last Admin Trade Name Freq PRN Reason Stop Dose Admin Cefazolin Sodium 3 gm/ N/A 30 mls @ 600 mls/hr 06/05/24 13:00 IV 06/05/24 13:02 PREOP ONE [facility], [facility] Medical History Lives in fdc Wears dentures Depression Anxiety Walker as ambulation aid Ambulates with cane Headache Shortness of breath on exertion Cardiology follow-up encounter History of renal disease Insulin dependent diabetes mellitus Pressure ulcer Abscess Indwelling urethral catheter present Acute painful diabetic polyneuropathy Cancer Former smoker CPAP (continuous positive airway pressure) dependence On home oxygen therapy Pulmonary embolism COPD (chronic obstructive pulmonary disease) Myocardial infarct DVT (deep venous thrombosis) Anemia Ulcer with necrosis of muscle Lymphedema of left lower extremity Lymphedema of right lower extremity Edema of left lower leg Edema of right lower leg Left leg swelling Right leg swelling Chronic venous insufficiency Non-pressure ulcer of right lower extremity with necrosis of muscle BPH (benign prostatic hyperplasia) Atrial fibrillation Blood loss anemia Hypertension Hiatal hernia Diverticulosis Debility Morbid obesity with BMI of 40.0-44.9, adult Impaired mobility SOB (shortness of breath) Heart murmur Heart failure 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 2 diabetes mellitus Aortic valve disease Renal mass, left History of DVT (deep vein thrombosis) Valvular heart disease Atrial fibrillation/flutter Chronic acquired lymphedema Chronic anemia Venous insufficiency (chronic) (peripheral) Ulcer of left lower extremity with fat layer exposed Superficial thrombosis of left lower extremity Peripheral vascular disease of lower extremity with ulceration Sleep apnea Morbid obesity DM2 (diabetes mellitus, type 2) Benign essential HTN Home Medications ?Medication ?Instructions ?Recorded ?Last Taken ?Type aspirin 81 mg tablet,delayed 81 mg PO DAILY 03/17/19 Unknown History release amlodipine 5 mg tablet 5 mg PO DAILY 10/28/23 Unknown History apixaban 5 mg tablet (Eliquis) 5 mg PO BID 10/28/23 Unknown History atorvastatin 20 mg tablet 20 mg PO QHS 10/28/23 Unknown History gabapentin 300 mg capsule 300 mg PO TID 10/28/23 Unknown History melatonin 3 mg tablet 3 mg PO QHS 10/28/23 Unknown History nystatin 100,000 unit/gram topical 1 applic topical TID #0 grams 11/03/23 Unknown Rx powder ([facility]) ascorbic acid (vitamin C) 250 mg 250 mg PO DAILY 11/29/23 Unknown History tablet bumetanide 1 mg tablet 1 mg PO BID 12/22/23 Unknown History tamsulosin 0.4 mg capsule 0.4 mg PO QHS 12/22/23 Unknown History tirzepatide 5 mg/0.5 mL 5 mg subcut WE 12/22/23 Unknown History subcutaneous pen injector (Mounjaro) budesonide-formoterol HFA 160 2 inh inhalation DAILY 01/03/24 Unknown History mcg-4.5 mcg/actuation aerosol inhaler (Symbicort) acetaminophen 325 mg tablet 650 mg PO Q4H PRN pain 06/01/24 Unknown History (Tylenol) bacitracin 500 unit/gram topical 1 applic topical BID 06/01/24 Unknown History ointment cyanocobalamin (vitamin B-12) 1,000 mcg PO DAILY 06/01/24 Unknown History 1,000 mcg capsule empagliflozin 10 mg tablet 10 mg PO DAILY 06/01/24 Unknown History (Jardiance) ergocalciferol (vitamin D2) 1,250 1,250 mcg PO FR 06/01/24 Unknown History mcg (50,000 unit) capsule insulin glargine 100 unit/mL (3 26 unit subcut DAILY 06/01/24 Unknown History mL) subcutaneous pen (Lantus Solostar U-100 Insulin) menthol 0.44 %-zinc oxide 20.6 % 1 applic topical TID 06/01/24 Unknown History topical ointment in packet (Calmoseptine) polyethylene glycol 3350 17 gram 17 g PO BID 06/01/24 Unknown History oral powder packet (Powderlax) sennosides 8.6 mg-docusate sodium 2 tab-cap PO QHS 06/01/24 Unknown History 50 mg tablet sertraline 50 mg tablet 100 mg PO DAILY 06/01/24 Unknown History Allergy/AdvReac Type Severity Reaction Status Date / Time ibuprofen (From Nuprin) Allergy Unknown Verified 06/01/24 11:58 Family History Mother Diabetes Father Cirrhosis of liver Alcoholism Surgical History History of incision and drainage History of embolic filter insertion History of right inguinal hernia repair H/O colectomy History of repair of inguinal hernia History of bladder surgery History of tonsillectomy and adenoidectomy History of right inguinal hernia repair S/P AVR (aortic valve replacement) Social History household members: children housing: fdc Smoking Status: Former smoker how long ago did patient quit smoking: Quit ~ 20 yrs prior, smoked age 15 until quit ~ 2 ppd. alcohol intake: never substance use type: does not use Review of Systems (Anesthesia) ROS Narrative System reviewed and no additional complaints, except as documented.
--- NOTE | 2024-06-05 11:53 | PCM.PRE.AN2 ---
ASA Classification* ASA Classification ASA Classification: 3 Assessment & Plan Anesthesia* Anesthesia Assessment Anesthesia Assessment: Discussed sedation and/or anesthesia options, risks, benefits, and alternatives with patient/parents/legal guardian/POA. Questions invited. The patient/parents/legal guardian/POA seems to understand and agrees to proceed with anesthesia plan. Reviewed the physical assessment, medical history, allergy history and patient home medications list prior to surgery/procedure/anesthetic and documented any changes. Performed airway and anesthesia risk assessments. Anesthesia Type Anesthesia Type: General Anesthesia Focused Assessment* Airway Assessment Mouth opens: >3 cm Mallampati Score: II Focused Labs Anesthesia Preop lab: CBC WBC 4.7 K/mm3 (4.4-11.0) 01/08/24 07:53 RBC 3.27 M/mm3 (4.6-6.2) L 01/08/24 07:53 Hgb 8.7 g/dL (13.0-16.5) L 01/08/24 07:53 Hct 29.1 % (40-54) L 01/08/24 07:53 Plt Count 147 K/mm3 (150-450) L 01/08/24 07:53 CHEMISTRY Potassium 4.2 mmol/L (3.5-5.1) 01/08/24 07:53 Sodium 138 mmol/L (136-145) 01/08/24 07:53 Magnesium 2.2 mg/dL (1.6-2.6) 01/04/24 05:21 Phosphorus 3.5 mg/dL (2.5-4.9) 01/04/24 05:21 BUN 23 mg/dL (7-18) H 01/08/24 07:53 Creatinine 1.08 mg/dL (0.70-1.30) 01/08/24 07:53 Glucose 123 mg/dL (74-106) H 01/08/24 07:53 POC Glucose 141 mg/dL (74-106) H 01/08/24 11:43 COAG PT 16.2 SECONDS (11.7-14.9) H 01/06/24 03:45 Pre-Assessment Diagnosis/Proposed Procedure Planned Operative Procedure(s): BILAT SURGICAL SKIN GRAFT SITE PREP WITHJ APPLICATION OF SKIN GRAFT SUBSTITUTE Anesthesia History Anesthesia History - electrotyper helper: Anesthesia History - electrotyper helper Hx Hospitalization Yes 06/01/24 12:00 Any Problems With Anesthesia No 06/01/24 12:00 Cholinesterase deficiency No 06/01/24 12:00 You/Your Family Experience No 06/01/24 12:00 fever (hyperthermia) with Relationship Recent Exposure to Contagious No 01/06/24 10:40 Disease Does patient have nerve No 06/01/24 12:00 stimulator Patient instructed to have device shut off --Does patient have Pacemaker or ICD? When Was Last Pacemaker Check QUESTION #4 FULL TEXT: You/Your Family Experience fever (hyperthermia) with Anesthesia Last Oral Intake Last Oral intake: Last Oral Intake NPO since Meds taken in AM with sips of water? Meds patient instructed to take am of surgery PONV PONV - electrotyper helper: PONV - electrotyper helper Female No 06/01/24 12:00 HX of Motion Sickness No 06/01/24 12:00 HX of N/V After Surgery No 06/01/24 12:00 Non-Smoker Yes 06/01/24 12:00 Duration of Surgery greater Yes 06/01/24 12:00 than 60 minutes Number of Risk Factors 2 06/01/24 12:00 PONV Score Moderate Risk 06/01/24 12:00 Height & Weight Height & Weight: Anesthesia: Height & Weight Height 6 ft 2 in 01/06/24 12:03 Respiratory Assessment Respiratory Assessment - electrotyper helper: Respiratory Tract Infection Hx - electrotyper helper Hx Respiratory Tract Infection No 06/01/24 12:00 STOP Sleep Apnea STOP Sleep Apnea - electrotyper helper: STOP Sleep Apnea - electrotyper helper Hx Hypertension Yes 06/01/24 12:00 Hx Sleep Apnea Yes 06/01/24 12:00 CPAP Yes: wears cpap at night 06/01/24 12:00 BIPAP No 06/01/24 12:00 Do you snore loudly (louder than talking or can be heard Do you often feel tired/ fatigued/ sleepy during daytime? Has anyone observed you stop breathing during sleep? STOP Results Positive 06/01/24 12:00 QUESTION #5 FULL TEXT : Do you snore loudly (louder than talking or can be heard through closed doors)? 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 Specify any problems Hx of Preganancy in last 3 N/A 06/01/24 12:00 Months Nurse Filling Out Transfusion DSCHRIBER 06/01/24 12:00 & Questions: Date: 06/01/24 06/01/24 12:00 Time: 12:06/01/24 12:00 Patient unable to answer at this time (ie. confused, unrespo /Reproduction History /Reproductive History - electrotyper helper: /Reproductive Hx- electrotyper helper Hx Now No 06/01/24 12:00 Gestational Age (in weeks): EDC: Hx Hx Para Hx Section SAB No 06/01/24 12:00 Active Medications Active Medications: Current Medications Generic Name Dose Route Start Last Admin Trade Name Freq PRN Reason Stop Dose Admin Cefazolin Sodium 3 gm/ N/A 30 mls @ 600 mls/hr 06/05/24 13:00 IV 06/05/24 13:02 PREOP ONE [facility] Medical History Lives in longterm Wears dentures Depression Anxiety Walker as ambulation aid Ambulates with cane Headache Shortness of breath on exertion Cardiology follow-up encounter History of renal disease Insulin dependent diabetes mellitus Pressure ulcer Abscess Indwelling urethral catheter present Acute painful diabetic polyneuropathy Cancer Former smoker CPAP (continuous positive airway pressure) dependence On home oxygen therapy Pulmonary embolism COPD (chronic obstructive pulmonary disease) Myocardial infarct DVT (deep venous thrombosis) Anemia Ulcer with necrosis of muscle Lymphedema of left lower extremity Lymphedema of right lower extremity Edema of left lower leg Edema of right lower leg Left leg swelling Right leg swelling Chronic venous insufficiency Non-pressure ulcer of right lower extremity with necrosis of muscle BPH (benign prostatic hyperplasia) Atrial fibrillation Blood loss anemia Hypertension Hiatal hernia Diverticulosis Debility Morbid obesity with BMI of 40.0-44.9, adult Impaired mobility SOB (shortness of breath) Heart murmur Heart failure 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 2 diabetes mellitus Aortic valve disease Renal mass, left History of DVT (deep vein thrombosis) Valvular heart disease Atrial fibrillation/flutter Chronic acquired lymphedema Chronic anemia Venous insufficiency (chronic) (peripheral) Ulcer of left lower extremity with fat layer exposed Superficial thrombosis of left lower extremity Peripheral vascular disease of lower extremity with ulceration Sleep apnea Morbid obesity DM2 (diabetes mellitus, type 2) Benign essential HTN Home Medications ?Medication ?Instructions ?Recorded ?Last Taken ?Type aspirin 81 mg tablet,delayed 81 mg PO DAILY 03/17/19 Unknown History release amlodipine 5 mg tablet 5 mg PO DAILY 10/28/23 Unknown History apixaban 5 mg tablet (Eliquis) 5 mg PO BID 10/28/23 Unknown History atorvastatin 20 mg tablet 20 mg PO QHS 10/28/23 Unknown History gabapentin 300 mg capsule 300 mg PO TID 10/28/23 Unknown History melatonin 3 mg tablet 3 mg PO QHS 10/28/23 Unknown History nystatin 100,000 unit/gram topical 1 applic topical TID #0 grams 11/03/23 Unknown Rx powder ([facility]) ascorbic acid (vitamin C) 250 mg 250 mg PO DAILY 11/29/23 Unknown History tablet bumetanide 1 mg tablet 1 mg PO BID 12/22/23 Unknown History tamsulosin 0.4 mg capsule 0.4 mg PO QHS 12/22/23 Unknown History tirzepatide 5 mg/0.5 mL 5 mg subcut WE 12/22/23 Unknown History subcutaneous pen injector (Mounjaro) budesonide-formoterol HFA 160 2 inh inhalation DAILY 01/03/24 Unknown History mcg-4.5 mcg/actuation aerosol inhaler (Symbicort) acetaminophen 325 mg tablet 650 mg PO Q4H PRN pain 06/01/24 Unknown History (Tylenol) bacitracin 500 unit/gram topical 1 applic topical BID 06/01/24 Unknown History ointment cyanocobalamin (vitamin B-12) 1,000 mcg PO DAILY 06/01/24 Unknown History 1,000 mcg capsule empagliflozin 10 mg tablet 10 mg PO DAILY 06/01/24 Unknown History (Jardiance) ergocalciferol (vitamin D2) 1,250 1,250 mcg PO FR 06/01/24 Unknown History mcg (50,000 unit) capsule insulin glargine 100 unit/mL (3 26 unit subcut DAILY 06/01/24 Unknown History mL) subcutaneous pen (Lantus Solostar U-100 Insulin) menthol 0.44 %-zinc oxide 20.6 % 1 applic topical TID 06/01/24 Unknown History topical ointment in packet (Calmoseptine) polyethylene glycol 3350 17 gram 17 g PO BID 06/01/24 Unknown History oral powder packet (Powderlax) sennosides 8.6 mg-docusate sodium 2 tab-cap PO QHS 06/01/24 Unknown History 50 mg tablet sertraline 50 mg tablet 100 mg PO DAILY 06/01/24 Unknown History Allergy/AdvReac Type Severity Reaction Status Date / Time ibuprofen (From Nuprin) Allergy Unknown Verified 06/01/24 11:58 Family History Mother Diabetes Father Cirrhosis of liver Alcoholism Surgical History History of incision and drainage History of embolic filter insertion History of right inguinal hernia repair H/O colectomy History of repair of inguinal hernia History of bladder surgery History of tonsillectomy and adenoidectomy History of right inguinal hernia repair S/P AVR (aortic valve replacement) Social History household members: children housing: longterm Smoking Status: Former smoker how long ago did patient quit smoking: Quit ~ 20 yrs prior, smoked age 15 until quit ~ 2 ppd. alcohol intake: never substance use type: does not use Review of Systems (Anesthesia) ROS Narrative System reviewed and no additional complaints, except as documented.
[2024-06-05] MEDS: Lactated Ringers 1,000 ML 15 ML IV (12:36)
[2024-06-05 12:46] LABS: Bedside Glucose 125 mg/dL (74-106)
[2024-06-05] MEDS: Cefazolin 3 GM in Syringe 1 EACH IV (13:50)
[2024-06-05] MEDS: Bupivacaine Mpf 0.5% 30 ML VIAL (13:58)
--- NOTE | 2024-06-05 14:23 | PCM.OPRPT ---
Problems Associated Problem List Diagnoses (1) Non-pressure chronic ulcer of other part of right lower leg with fat layer exposed: Operative Report (Standard) Operative Information Surgery/Procedure Performed: 1. Surgical skin graft site prep, right lower extremity 2. Application of skin graft substitute, right lower extremity Surgeon: Aaron Shannon Date of Procedure: 06/05/24 Procedure Start Time: 13:58 Procedure Stop Time: 14:09 Pre-Operative Diagnosis: 1. Full-thickness ulceration, right lower extremity Post-Operative Diagnosis: Same as preoperative diagnosis Select all DRAINS/GRAFTS/IMPLANTS that apply: Graft Graft details: 1000 mg Axiofill Type of Anesthesia: General and Local Special Medications: Per anesthesia Estimated Blood Loss: 20 mL Fluids Replaced: Per anesthesia Specimen collected: No Description of surgery: Indications For Operation: Mr. Gutierrez who was admitted to [facility] for elective right foot lower extremity surgery secondary to chronic full-thickness wound to the right lower extremity. Patient is well-known to my service and has been seen weekly at the wound care center. Patient under went initial treatment for 3 full-thickness wound that all tunneled and connected approximately 5 months ago. Since then the patient has had a wound VAC and outpatient excisional debridements. Patient is presenting today for cleaning up of the right wound on the leg due to the chronicity and slow healing factor of the ulceration. Patient was seen at the wound care center for surgical consultation with chart review and consent signed with all risk and benefits discussed with patient great detail. Due to chronicity of the right lower extremity wound it had been deemed necessary at this time to take the patient the operating room the performed above procedure to help speed up the healing of his chronic ulcer to the right leg. The nature of the problem, anticipated procedures, postop recovery/convalences and risk/complications include but not limited to infection, wound healing complications, digital amputation, hypertrophic scarring, numbness, tingling, chronic pain, CRPS, over and under correction, recurrence of deformity, DVT and or PE and the need for further surgery have been discussed in great detail with the patient. All questions have been answered to the patient's satisfaction. There are no guarantees given as to the outcome of the procedure. Description of Procedure: Under mild sedation, the patient was brought into the operating room and placed on the operating table in supine position. Once the patient was under general anesthesia with laryngeal mask airway, the right lower extremity was blocked using approximately 10 cc 0.5% Marcaine plain. No tourniquet was used for this case. Next, the right lower extremity was prepped and draped in normal aseptic manner. Next, a timeout was then undertaken verifying the correct patient, extremity, visibility of preoperative markings, availability of the equipment. Procedure #1: Surgical skin graft site prep, right lower extremity (CPT code: 70553) Next, attention was directed to the right lower extremity full-thickness ulceration to the lateral right leg. Using the ultrasonic debrider/Misonix excisional debridement down to and including subcutaneous tissue was performed without incident. There was noted to be sanguinous drainage with no concern of infection to the right lower extremity. Predebridement measurement was 19.5 x 5.0 x 0.1 cm. Postdebridement measurement was 20.2 x 5.8 x 0.1 cm. The full-thickness wound to the right leg was flushed with copious normal saline. Procedure #2: Application of skin substitute, right lower extremity (CPT code: 18027) Next, using a 1000 mg of Axiofill, a slurry was prepared on the back table. The amniotic skin graft substitute was applied to the full-thickness wound to the right lower extremity. Excess moisture was worked out of the skin graft substitute. Next, the right lower extremity was wiped clean and patted dry. The full-thickness wound and amniotic skin graft substitute was dressed with Adaptic, Steri-Strips, moist 4 x 4's, ABD pads and a double layer Garcias was applied to the right lower extremity. The patient tolerated the procedure and anesthesia well and apparent satisfactory condition and was transported to the PACU for further monitoring prior to discharge back to residential facility. Vital signs stable and vascular status intact to all digits bilateral. Post Operative Plan: Weightbearing: Full weightbearing to bilateral lower extremity. Antibiotics: 3 g Ancef through the IV DVT Prophylaxis: Per detention Cohen: None Dressin mg Axiofill, Adaptic, Steri-Strips, dry sterile dressing, double layer Garcias AO splint right lower extremity Pain Medication: Percocet 5/325 Follow-up: Patient is to keep his right lower extremity dressing clean dry and intact, do not remove. Patient will follow-up at the wound care center on 06/07/2024 for evaluation. Please follow-up at your already scheduled time. Surgical Findings: 1. After ultrasonic debridement, her percent granular tissue noted at the right lower extremity. 2. Successful application of the amniotic skin graft substitute to the right lower extremity. Director [employer] wheel buffer: No Complications Complications: No Admit VTE Documentation VTE Present on Admission: No VTE Mechan Device Prophylaxis: SCD's VTE Pharm Prophylaxis ordered?: Yes
--- NOTE | 2024-06-05 14:23 | PCM.OPRPT ---
Problems Associated Problem List Diagnoses (1) Non-pressure chronic ulcer of other part of right lower leg with fat layer exposed: Operative Report (Standard) Operative Information Surgery/Procedure Performed: 1. Surgical skin graft site prep, right lower extremity 2. Application of skin graft substitute, right lower extremity Surgeon: Aaron Shannon Date of Procedure: 06/05/24 Procedure Start Time: 13:58 Procedure Stop Time: 14:09 Pre-Operative Diagnosis: 1. Full-thickness ulceration, right lower extremity Post-Operative Diagnosis: Same as preoperative diagnosis Select all DRAINS/GRAFTS/IMPLANTS that apply: Graft Graft details: 1000 mg Axiofill Type of Anesthesia: General and Local Special Medications: Per anesthesia Estimated Blood Loss: 20 mL Fluids Replaced: Per anesthesia Specimen collected: No Description of surgery: Indications For Operation: Mr. Gutierrez who was admitted to [facility] for elective right foot lower extremity surgery secondary to chronic full-thickness wound to the right lower extremity. Patient is well-known to my service and has been seen weekly at the wound care center. Patient under went initial treatment for 3 full-thickness wound that all tunneled and connected approximately 5 months ago. Since then the patient has had a wound VAC and outpatient excisional debridements. Patient is presenting today for cleaning up of the right wound on the leg due to the chronicity and slow healing factor of the ulceration. Patient was seen at the wound care center for surgical consultation with chart review and consent signed with all risk and benefits discussed with patient great detail. Due to chronicity of the right lower extremity wound it had been deemed necessary at this time to take the patient the operating room the performed above procedure to help speed up the healing of his chronic ulcer to the right leg. The nature of the problem, anticipated procedures, postop recovery/convalences and risk/complications include but not limited to infection, wound healing complications, digital amputation, hypertrophic scarring, numbness, tingling, chronic pain, CRPS, over and under correction, recurrence of deformity, DVT and or PE and the need for further surgery have been discussed in great detail with the patient. All questions have been answered to the patient's satisfaction. There are no guarantees given as to the outcome of the procedure. Description of Procedure: Under mild sedation, the patient was brought into the operating room and placed on the operating table in supine position. Once the patient was under general anesthesia with laryngeal mask airway, the right lower extremity was blocked using approximately 10 cc 0.5% Marcaine plain. No tourniquet was used for this case. Next, the right lower extremity was prepped and draped in normal aseptic manner. Next, a timeout was then undertaken verifying the correct patient, extremity, visibility of preoperative markings, availability of the equipment. Procedure #1: Surgical skin graft site prep, right lower extremity (CPT code: 66347) Next, attention was directed to the right lower extremity full-thickness ulceration to the lateral right leg. Using the ultrasonic debrider/Misonix excisional debridement down to and including subcutaneous tissue was performed without incident. There was noted to be sanguinous drainage with no concern of infection to the right lower extremity. Predebridement measurement was 19.5 x 5.0 x 0.1 cm. Postdebridement measurement was 20.2 x 5.8 x 0.1 cm. The full-thickness wound to the right leg was flushed with copious normal saline. Procedure #2: Application of skin substitute, right lower extremity (CPT code: 03700) Next, using a 1000 mg of Axiofill, a slurry was prepared on the back table. The amniotic skin graft substitute was applied to the full-thickness wound to the right lower extremity. Excess moisture was worked out of the skin graft substitute. Next, the right lower extremity was wiped clean and patted dry. The full-thickness wound and amniotic skin graft substitute was dressed with Adaptic, Steri-Strips, moist 4 x 4's, ABD pads and a double layer Garcias was applied to the right lower extremity. The patient tolerated the procedure and anesthesia well and apparent satisfactory condition and was transported to the PACU for further monitoring prior to discharge back to custodial facility. Vital signs stable and vascular status intact to all digits bilateral. Post Operative Plan: Weightbearing: Full weightbearing to bilateral lower extremity. Antibiotics: 3 g Ancef through the IV DVT Prophylaxis: Per residential Cohen: None Dressin mg Axiofill, Adaptic, Steri-Strips, dry sterile dressing, double layer Garcias AO splint right lower extremity Pain Medication: Percocet 5/325 Follow-up: Patient is to keep his right lower extremity dressing clean dry and intact, do not remove. Patient will follow-up at the wound care center on 06/07/2024 for evaluation. Please follow-up at your already scheduled time. Surgical Findings: 1. After ultrasonic debridement, her percent granular tissue noted at the right lower extremity. 2. Successful application of the amniotic skin graft substitute to the right lower extremity. Microbiological Analyst tc operator: No Complications Complications: No Admit VTE Documentation VTE Present on Admission: No VTE Mechan Device Prophylaxis: SCD's VTE Pharm Prophylaxis ordered?: Yes
--- NOTE | 2024-06-05 14:27 | PCM.POST.ANE ---
Anesthesia: Postop Eval I Current Vital Signs Temperature: 96.7 F Pulse Rate: 55 Blood Pressure: 152/76 Respiratory Rate: 16 Pulse Ox: 94 Oxygen Delivery Method: Room Air Assessment Airway patent: Yes Spontaneous unlabored respirations: Yes Mental status: Awake and Calm nausea: No Vomiting: No Anesthesia Complication: No Fluid Hydration Crystalloid volume administer (ml): 600 Total IV fluid infused: 600 Progress Note Anesthesia document: Postop Eval 1 completed: Yes
--- NOTE | 2024-06-05 15:57 | POSTOPAN2_ITS ---
Anesthesia Postop Eval I Sum Postop Eval Completion status Anesthesia document: Postop Eval 1 completed: Yes Anesthesia Postop Eval I Summary Anesthesia Postop Eval I Summary: Anesthesia Postop Eval I: Assessment Summary Airway patent Yes 06/05/24 14:28 JOINT MACHINE [email or web address] Spontaneous unlabored Yes 06/05/24 14:28 JOINT MACHINE OPERATOR.[email or web address] respirations Mental status Awake,Calm 06/05/24 14:28 JOINT MACHINE [email or web address] nausea No 06/05/24 14:28 JOINT MACHINE OPERATOR.[email or web address] Vomiting No 06/05/24 14:28 JOINT MACHINE OPERATOR.[email or web address] Anesthesia Postop Eval I: Fluid Summary Crystalloid volume administer 600 06/05/24 14:28 JOINT MACHINE OPERATOR.[email or web address] (ml) Colloids volume administered ( ml) Blood Product volume administered (ml) Total IV fluid infused 600 06/05/24 14:28 JOINT MACHINE OPERATOR.[email or web address] Anesthesia Postop Eval I: Summary Notes Anesthesia Complication No 06/05/24 14:28 JOINT MACHINE OPERATOR.[email or web address] Anesthesia Complication Comment: Post-operative progress note Anesthesia: Postop Eval II Evaluation Mental status: Awake Pain Level: 0 nausea: No Vomiting: No
--- NOTE | 2024-06-05 15:57 | POSTOPAN2_ITS ---
Anesthesia Postop Eval I Sum Postop Eval Completion status Anesthesia document: Postop Eval 1 completed: Yes Anesthesia Postop Eval I Summary Anesthesia Postop Eval I Summary: Anesthesia Postop Eval I: Assessment Summary Airway patent Yes 06/05/24 14:28 WATERPROOFING [email or web address] Spontaneous unlabored Yes 06/05/24 14:28 WATERPROOFING SUPERVISOR.[email or web address] respirations Mental status Awake,Calm 06/05/24 14:28 WATERPROOFING [email or web address] nausea No 06/05/24 14:28 WATERPROOFING SUPERVISOR.[email or web address] Vomiting No 06/05/24 14:28 WATERPROOFING SUPERVISOR.[email or web address] Anesthesia Postop Eval I: Fluid Summary Crystalloid volume administer 600 06/05/24 14:28 WATERPROOFING [email or web address] (ml) Colloids volume administered ( ml) Blood Product volume administered (ml) Total IV fluid infused 600 06/05/24 14:28 WATERPROOFING SUPERVISOR.[email or web address] Anesthesia Postop Eval I: Summary Notes Anesthesia Complication No 06/05/24 14:28 WATERPROOFING SUPERVISOR.[email or web address] Anesthesia Complication Comment: Post-operative progress note Anesthesia: Postop Eval II Evaluation Mental status: Awake Pain Level: 0 nausea: No Vomiting: No
--- NOTE | 2024-06-05 15:57 | PCM.POSTANE2 ---
Anesthesia Postop Eval I Sum Postop Eval Completion status Anesthesia document: Postop Eval 1 completed: Yes Anesthesia Postop Eval I Summary Anesthesia Postop Eval I Summary: Anesthesia Postop Eval I: Assessment Summary Airway patent Yes 06/05/24 14:28 OUTSIDE INDUSTRIAL SALES REPRESENTATIVE.[email or web address] Spontaneous unlabored Yes 06/05/24 14:28 OUTSIDE INDUSTRIAL SALES REPRESENTATIVE.[email or web address] respirations Mental status Awake,Calm 06/05/24 14:28 OUTSIDE INDUSTRIAL SALES REPRESENTATIVE.[email or web address] nausea No 06/05/24 14:28 OUTSIDE INDUSTRIAL SALES REPRESENTATIVE.[email or web address] Vomiting No 06/05/24 14:28 OUTSIDE INDUSTRIAL SALES REPRESENTATIVE.[email or web address] Anesthesia Postop Eval I: Fluid Summary Crystalloid volume administer 600 06/05/24 14:28 OUTSIDE INDUSTRIAL SALES REPRESENTATIVE.[email or web address] (ml) Colloids volume administered ( ml) Blood Product volume administered (ml) Total IV fluid infused 600 06/05/24 14:28 OUTSIDE INDUSTRIAL SALES REPRESENTATIVE.[email or web address] Anesthesia Postop Eval I: Summary Notes Anesthesia Complication No 06/05/24 14:28 OUTSIDE INDUSTRIAL SALES REPRESENTATIVE.[email or web address] Anesthesia Complication Comment: Post-operative progress note Anesthesia: Postop Eval II Evaluation Mental status: Awake Pain Level: 0 nausea: No Vomiting: No
--- NOTE | 2024-06-05 15:57 | PCM.POSTANE2 ---
Anesthesia Postop Eval I Sum Postop Eval Completion status Anesthesia document: Postop Eval 1 completed: Yes Anesthesia Postop Eval I Summary Anesthesia Postop Eval I Summary: Anesthesia Postop Eval I: Assessment Summary Airway patent Yes 06/05/24 14:28 SENIOR SALES [email or web address] Spontaneous unlabored Yes 06/05/24 14:28 SENIOR SALES ASSISTANT.[email or web address] respirations Mental status Awake,Calm 06/05/24 14:28 SENIOR SALES ASSISTANT.[email or web address] nausea No 06/05/24 14:28 SENIOR SALES ASSISTANT.[email or web address] Vomiting No 06/05/24 14:28 SENIOR SALES ASSISTANT.[email or web address] Anesthesia Postop Eval I: Fluid Summary Crystalloid volume administer 600 06/05/24 14:28 SENIOR SALES ASSISTANT.[email or web address] (ml) Colloids volume administered ( ml) Blood Product volume administered (ml) Total IV fluid infused 600 06/05/24 14:28 SENIOR SALES ASSISTANT.[email or web address] Anesthesia Postop Eval I: Summary Notes Anesthesia Complication No 06/05/24 14:28 SENIOR SALES ASSISTANT.[email or web address] Anesthesia Complication Comment: Post-operative progress note Anesthesia: Postop Eval II Evaluation Mental status: Awake Pain Level: 0 nausea: No Vomiting: No
--- NOTE | 2024-06-05 17:04 | SUR.PHASEII ---
AT 1700 SPOKE WITH A NURSE AT [facility] ([place]), WHO IS CARING FOR SHANELLE HUNTER. I REVIEWED DR BERRY' PRINTED DISCHARGE INSTRUCTIONS WITH HER. I ALSO SENT A PRINT VERSION OF THE DISCHARGE INSTRUCTIONS WITH THE PATIENT.
--- NOTE | 2024-06-05 17:04 | SUR.PHASEII ---
AT 1700 SPOKE WITH A NURSE AT [facility] ([place]), WHO IS CARING FOR SHANELLE HUNTER. I REVIEWED DR BERRY' PRINTED DISCHARGE INSTRUCTIONS WITH HER. I ALSO SENT A PRINT VERSION OF THE DISCHARGE INSTRUCTIONS WITH THE PATIENT.
== END 2024-06-05 16:25 ==
LOC: SDC 11:36 → AC 11:36
PROVIDERS: Referring Provider Podiatrist Foot & Ankle Surgery; Visit Provider Podiatrist Foot & Ankle Surgery
PROC: (CPT 15002; principal; 2024-06-05 12:45)
DX: E11.621 Type 2 diabetes mellitus with foot ulcer (principal); L97.812 Non-pressure chronic ulcer of other part of right lower leg with fat layer exposed; N18.4 Chronic kidney disease, stage 4 (severe); I13.0 Hypertensive heart and chronic kidney disease with heart failure and stage 1 through stage 4 chronic kidney disease, or unspecified chronic kidney disease; I50.9 Heart failure, unspecified; J44.9 Chronic obstructive pulmonary disease, unspecified; I48.91 Unspecified atrial fibrillation; E11.22 Type 2 diabetes mellitus with diabetic chronic kidney disease; E11.51 Type 2 diabetes mellitus with diabetic peripheral angiopathy without gangrene; Z79.4 Long term (current) use of insulin; F32.A Depression, unspecified; F41.9 Anxiety disorder, unspecified; I25.2 Old myocardial infarction; N40.0 Benign prostatic hyperplasia without lower urinary tract symptoms; G47.30 Sleep apnea, unspecified; Z95.2 Presence of prosthetic heart valve; Z79.82 Long term (current) use of aspirin; Z79.01 Long term (current) use of anticoagulants; Z87.19 Personal history of other diseases of the digestive system; Z90.49 Acquired absence of other specified parts of digestive tract; Z86.711 Personal history of pulmonary embolism; Z86.718 Personal history of other venous thrombosis and embolism; Z79.899 Other long term (current) drug therapy; Z98.890 Other specified postprocedural states; Z87.891 Personal history of nicotine dependence
CPT/HCPCS: 15002; 15271; 00300; 82962; J7120; J2405

== ENCOUNTER 2024-06-07 08:45 | Outpatient (RCR) | payer MEDICARE, SELFPAY ==
[2024-05-12 00:18] VITALS: BP 167/86; PULSE 60; RESP 16; TEMP 36.2; BMI 44.6
[2024-05-16 08:29] VITALS: BP 158/72; PULSE 56; RESP 18; TEMP 36.6; BMI 44.6
--- NOTE | 2024-05-16 09:05 | PCM.WC.PN ---
History of Present Illness Date of Service: 05/16/24 Chief Complaint: Right buttock ulceration History of Wound: This is a 68-year-old morbidly obese diabetic male who sees Dr. Shannon for 3 large ulcerations on the right lateral calf. He is a resident of [facility] in [place], [place]. He has a history of bilateral lower extremity deep vein thrombosis, and a venous duplex examination performed on October 22, 2023, revealed chronic changes in the right lower extremity deep venous system, with a normal superficial venous system. Management of the patient's wound had been by means of the [facility], Dr. Reyna, from [place], [place]. Approximately 1 week prior to presentation, the patient underwent placement of a left upper extremity PICC catheter and has been receiving vancomycin and Zosyn intravenously. The patient had been on chronic systemic anticoagulation with Eliquis until recently, which was discontinued as a result of his recent gastrointestinal bleeding. He developed a right buttocks (ischial area) pressure sore over the past month. He denies sleeping on low air loss mattress because he is unable to move it the bed and he finds it very difficult to move and to breath. He wears CPAP at night that he states he must sleep on his back when wearing. He admits to sitting for long periods of time in his wheel chair. He sits on a cushion and a pillow. He states they have been putting a barrier cream on the area and he believes it is making it worse. He states it is painful to touch and to sit on. Objective Data Objective Data Vital Signs: Vital Signs Temp Pulse Resp BP 98 F 56 L 18 158/72 H 05/16/24 08:29 05/16/24 08:29 05/16/24 08:29 05/16/24 08:29 Weight: 157.85 kg Body Mass Index (BMI) 44.6 Debridement Note Debridement Note Post-Debridement Measurements and Additional Note: Post-Debridement Measurements/Treatment CODY - Nurse 1 - General Ulcer Assessment Start: 05/16/24 08:29 Freq: Status: Active Protocol: CODY.NATALIE Activity Type Activity Date Activity User E-sign Co-sign Detail Recorded Client Recorded Date Recorded By Document 05/16/24 08:29 JANET [id number] 05/16/24 08:40 RB 05/16/24 08:29 - Today's Visit Information Type of service Follow-up Visit (Physician/DATA 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 ) Arrival Mode Ambulatory Transfer Assistance None Patient Identification Verified (Name & Yes ) Patient Requires Transmission-Based No Precautions Height and Weight Body Mass Index (BMI) 44.6 BMI Classification Obese Vital Signs Temperature (97.8 F-99.1 F) 98 F Temperature Source Temporal Pulse Rate (60-100) 56 L Pulse Location Monitor Respiratory Rate (12-18) 18 Respiratory rate source Observation Blood Pressure (90/60-120/80) 158/72 H Blood Pressure Mean (mm Hg) 100 Source Monitor Position Semi-Fowlers Blood Pressure Location Left Arm History Since Last Visit- (Skip if this is Patient's initial visit) Have you changed medications since your No last visit? Any new allergies or adverse reactions No Had a fall/change in ADL's that may No increase risk of falls Signs or symptoms of abuse and/or No neglect since last visit Have you been in the hospital since your No last visit? Has dressing in place as prescribed Yes Has compression in place as prescribed Yes Has offloadiing in place as prescribed No Experienced any changes in pain level or No management Pain Scale: 0-10 Numeric Is Patient Pain Free? Yes WC - Nurse 1 - General Ulcer Measurement Start: 05/16/24 08:29 Freq: Status: Active Protocol: Activity Type Activity Date Activity User E-sign Co-sign Detail Recorded Client Recorded Date Recorded By Document 05/16/24 08:29 RB [id number] 05/16/24 08:40 RB 05/16/24 08:29 Wound Center Nurse 1 #7 LT HEEL -Combined with other wound No -Current Size (cm) - Length 0.1 -Current Size (cm) - Width 0.1 -Current Size (cm) - Depth 0.1 -Total Square Cm 0.01 -Photo Taken Yes -Tunneling No -Undermining/Tunneling No -Circular Undermining No -Exudate Amt Small -Exudate Type Serosanguineous -Wound Margin Distinct, Outline Attached -Granulation Amt Small (1-33%) -Granulation Quality [place] -Slough/Fibrin Yes -Necrosis Amt Large (67-100%) -Necrotic Tissue Type Adherent Slough -Structure Exposed N/A -Texture (Mariza-wound Skin Appearance) Assessed -Moisture (Mariza-wound Skin Appearance) Assessed -Color (Mariza-wound Skin Appearance) Assessed -Temperature (Mariza-wound Skin No Abnormality Appearance) (Pt Warm) -Ulcer Cleansing Wound Cleanser -Anesthetic Used 5% Lidocaine Gel #5 RT LAT LE POST-OP -Combined with other wound No -Current Size (cm) - Length 18.7 -Current Size (cm) - Width 5.5 -Current Size (cm) - Depth 0.1 -Total Square Cm 102.85 -Photo Taken Yes -Tunneling No -Undermining/Tunneling No -Circular Undermining No -Exudate Amt Large -Exudate Type Serosanguineous -Wound Margin Distinct, Outline Attached -Granulation Amt Large (67-100%) -Granulation Quality [place],Red -Slough/Fibrin Yes -Necrosis Amt Small (1-33%) -Necrotic Tissue Type Adherent Slough -Structure Exposed N/A -Texture (Mariza-wound Skin Appearance) Assessed, Scarring -Moisture (Mariza-wound Skin Appearance) Dry/Scaly -Color (Mariza-wound Skin Appearance) Assessed -Temperature (Mariza-wound Skin No Abnormality Appearance) (Pt Warm) -Tenderness on Palpation (Mariza-wound No Skin Appearance) -Ulcer Cleansing Wound Cleanser -Foul Odor after Cleansing No -Anesthetic Used 4% Lidocaine Solution WC - Nurse 2 - General Ulcer CM Notes Start: 05/16/24 08:29 Freq: Status: Active Protocol: Activity Type Activity Date Activity User E-sign Co-sign Detail Recorded Client Recorded Date Recorded By Document 05/16/24 08:53 TALI [id number] 05/16/24 09:00 TALI 05/16/24 08:53 Wound Center Nurse 2 #7 LT HEEL -Time 08:58 -Correct Patient Yes -Correct Side, Site, Position Yes -Correct Procedure Yes -Procedure Performed Yes -Type of Procedure Debridement -Clinical Debridement Subcutaneous -Tissue Removed Subcutaneous -Post Debridement (cm) - Length 1.2 -Post Debridement (cm) - Width 1.2 -Post Debridement (cm) - Depth 0.4 -Total Square (Post) (cm) 1.44 -Area of Debridement (cm) - Length 1.2 -Area of Debridement (cm) - Width 1.2 -Total Square (Area) (cm) 1.44 -Tunneling No -Undermining/Tunneling No -Circular Undermining No -Wound/Ulcer Outcome Not Healed -Ulcer Cleansing Rinsed/ Irrigated with Saline -Foul Odor after Cleansing No -Bioengineered Tissue Yes -Type of Bioengineered Tissue Epifix 18mm Disc -Expiration Date 12/10/28 -Product Lot Number [id number] -Percent Used 100 -Lot number of Saline Used [id number] -Bleeding Controlled with Pressure -Treatment Response Procedure Tolerated Well -Offloading No -Debridement - Subq, 1st 20sq cm No -Apply Skin Sub - 1st 25 sq cm - Feet 1 -Epifix 18mm Disc 3 #5 RT LAT LE POST-OP -Time 09:00 -Correct Patient Yes -Correct Side, Site, Position Yes -Correct Procedure Yes -Procedure Performed Yes -Type of Procedure Debridement -Clinical Debridement Subcutaneous -Tissue Removed Subcutaneous -Post Debridement (cm) - Length 19 -Post Debridement (cm) - Width 4 -Post Debridement (cm) - Depth 0.2 -Total Square (Post) (cm) 76 -Area of Debridement (cm) - Length 19 -Area of Debridement (cm) - Width 4 -Total Square (Area) (cm) 76 -Tunneling No -Undermining/Tunneling No -Circular Undermining No -Wound/Ulcer Outcome Not Healed -Ulcer Cleansing Rinsed/ Irrigated with Saline -Foul Odor after Cleansing No -Bioengineered Tissue No -Bleeding Controlled with Pressure -Treatment Response Procedure Tolerated Well -Offloading No -Debridement - Subq, 1st 20sq cm Yes -Debridement, SubQ, ea addt'l 20sq cm 3 or part thereof Pain Scale: 0-10 Numeric Is Patient Pain Free? Yes
--- NOTE | 2024-05-16 09:06 | PCM.WC.PN ---
History of Present Illness Date of Service: 05/10/24 Chief Complaint: Right buttock ulceration History of Wound: This is a 68-year-old morbidly obese diabetic male who sees Dr. Shannon for 3 large ulcerations on the right lateral calf. He is a resident of [facility] in [place], [place]. He has a history of bilateral lower extremity deep vein thrombosis, and a venous duplex examination performed on October 22, 2023, revealed chronic changes in the right lower extremity deep venous system, with a normal superficial venous system. Management of the patient's wound had been by means of the correction [employer] T[employer], Dr. Reyna, from [place], [place]. Approximately 1 week prior to presentation, the patient underwent placement of a left upper extremity PICC catheter and has been receiving vancomycin and Zosyn intravenously. The patient had been on chronic systemic anticoagulation with Eliquis until recently, which was discontinued as a result of his recent gastrointestinal bleeding. He developed a right buttocks (ischial area) pressure sore over the past month. He denies sleeping on low air loss mattress because he is unable to move it the bed and he finds it very difficult to move and to breath. He wears CPAP at night that he states he must sleep on his back when wearing. He admits to sitting for long periods of time in his wheel chair. He sits on a cushion and a pillow. He states they have been putting a barrier cream on the area and he believes it is making it worse. He states it is painful to touch and to sit on. Subjective Subjective Mr. Gutierrez is a 69-year-old diabetic male presenting the wound care center today for follow-up evaluation of right leg full-thickness ulceration and left heel full-thickness ulceration. Patient has been compliant with dressing changes at the nursing facility he has left the graft site clean dry and intact. He admits that they are not placing collagen but Xeroform on the right leg which is not compliant with our orders. He also is not having his left lower extremity wrapped with Celso wrap which is also noncompliant with our order. Overall he admits to being pain-free. Blood sugar under control. Denies any falls. Denies trauma. Denies constitutional symptoms. No other pedal complaints at this time. Objective Data Objective Data Vital Signs: Vital Signs Temp Pulse Resp BP 98 F 56 L 18 158/72 H 05/16/24 08:29 05/16/24 08:29 05/16/24 08:29 05/16/24 08:29 Weight: 157.85 kg Body Mass Index (BMI) 44.6 Physical Exam Narrative Vascular: DP and PT pulses are palpable to the right lower extremity. Nonpitting edema appreciated to the right lower extremity. Skin temperature gradient is warm to warm from proximal ankles to distal digit. No focal increase appreciated. Neurological: Light touch intact. Patient response to painful stimuli. Protective sensation is diminished. Dermatological: Full-thickness ulceration to the lateral aspect of the right leg measuring, measurements documented nursing notes. Wound base is granular. No malodor or probe to bone. No sign of infection. Full-thickness ulceration appreciated to the left heel measurements documented nursing notes. Wound base is granular nature. Excisional debridement of the lateral right leg ulceration down to including subcutaneous tissue with a number 7 mm dermal curette without incident. Pre and postdebridement measurements documented nursing notes. Excisional debridement of the left heel dry eschar down to including subcutaneous tissue with a number 3 mm dermal curette without incident. Pre and postdebridement measurements documented nursing notes. EpiFix 18 mm disc was applied to the left full-thickness ulceration with 100% use. Second application. The graft site was free and clear of any infection. The wound/skin graft substitute was dressed with nonadherent bandage secured in place with Steri-Strips followed by bolster dressing as well as a Celso wrap. Musculoskeletal: Mild pain to palpation to full-thickness ulceration. No pain with calf compression. Debridement Note Debridement Note Debridement Free Text: Excisional debridement of the lateral right leg ulceration down to including subcutaneous tissue with a number 7 mm dermal curette without incident. Predebridement measurement is 18.5 x 4.0 x 0.1 cm. Postdebridement measurement is 18.8 x 4.4 x 0.1 cm. Excisional debridement of the left heel dry eschar down to including subcutaneous tissue with a number 3 mm dermal curette without incident. Predebridement measurement was 1.2 x 1.2 x 0.1 cm. Postdebridement measurement is 1.3 x 1.3 x 0.2 cm. EpiFix 18 mm disc was applied to the left full-thickness ulceration with 100% use. Second application. The graft site was free and clear of any infection. The wound/skin graft substitute was dressed with nonadherent bandage secured in place with Steri-Strips followed by bolster dressing as well as a Celso wrap. Post-Debridement Measurements and Additional Note: Post-Debridement Measurements/Treatment - Nurse 1 - General Ulcer Assessment Start: 05/16/24 08:29 Freq: Status: Active Protocol: GALE Activity Type Activity Date Activity User E-sign Co-sign Detail Recorded Client Recorded Date Recorded By Document 05/16/24 08:29 JANET [id number] 05/16/24 08:40 RB 05/16/24 08:29 WC - Today's Visit Information Type of service Follow-up Visit (Physician/FELT TIPPING MACHINE TENDER ) Arrival Mode Ambulatory Transfer Assistance None Patient Identification Verified (Name & Yes ) Patient Requires Transmission-Based No Precautions Height and Weight Body Mass Index (BMI) 44.6 BMI Classification Obese Vital Signs Temperature (97.8 F-99.1 F) 98 F Temperature Source Temporal Pulse Rate (60-100) 56 L Pulse Location Monitor Respiratory Rate (12-18) 18 Respiratory rate source Observation Blood Pressure (90/60-120/80) 158/72 H Blood Pressure Mean (mm Hg) 100 Source Monitor Position Semi-Fowlers Blood Pressure Location Left Arm History Since Last Visit- (Skip if this is Patient's initial visit) Have you changed medications since your No last visit? Any new allergies or adverse reactions No Had a fall/change in ADL's that may No increase risk of falls Signs or symptoms of abuse and/or No neglect since last visit Have you been in the hospital since your No last visit? Has dressing in place as prescribed Yes Has compression in place as prescribed Yes Has offloadiing in place as prescribed No Experienced any changes in pain level or No management Pain Scale: 0-10 Numeric Is Patient Pain Free? Yes - Nurse 1 - General Ulcer Measurement Start: 05/16/24 08:29 Freq: Status: Active Protocol: Activity Type Activity Date Activity User E-sign Co-sign Detail Recorded Client Recorded Date Recorded By Document 05/16/24 08:29 RB [id number] 05/16/24 08:40 RB 05/16/24 08:29 Wound Center Nurse 1 #7 LT HEEL -Combined with other wound No -Current Size (cm) - Length 0.1 -Current Size (cm) - Width 0.1 -Current Size (cm) - Depth 0.1 -Total Square Cm 0.01 -Photo Taken Yes -Tunneling No -Undermining/Tunneling No -Circular Undermining No -Exudate Amt Small -Exudate Type Serosanguineous -Wound Margin Distinct, Outline Attached -Granulation Amt Small (1-33%) -Granulation Quality [place] -Slough/Fibrin Yes -Necrosis Amt Large (67-100%) -Necrotic Tissue Type Adherent Slough -Structure Exposed N/A -Texture (Mariza-wound Skin Appearance) Assessed -Moisture (Mariza-wound Skin Appearance) Assessed -Color (Mariza-wound Skin Appearance) Assessed -Temperature (Mariza-wound Skin No Abnormality Appearance) (Pt Warm) -Ulcer Cleansing Wound Cleanser -Anesthetic Used 5% Lidocaine Gel #5 RT LAT LE POST-OP -Combined with other wound No -Current Size (cm) - Length 18.7 -Current Size (cm) - Width 5.5 -Current Size (cm) - Depth 0.1 -Total Square Cm 102.85 -Photo Taken Yes -Tunneling No -Undermining/Tunneling No -Circular Undermining No -Exudate Amt Large -Exudate Type Serosanguineous -Wound Margin Distinct, Outline Attached -Granulation Amt Large (67-100%) -Granulation Quality [place],Red -Slough/Fibrin Yes -Necrosis Amt Small (1-33%) -Necrotic Tissue Type Adherent Slough -Structure Exposed N/A -Texture (Mariza-wound Skin Appearance) Assessed, Scarring -Moisture (Mariza-wound Skin Appearance) Dry/Scaly -Color (Mariza-wound Skin Appearance) Assessed -Temperature (Mariza-wound Skin No Abnormality Appearance) (Pt Warm) -Tenderness on Palpation (Mariza-wound No Skin Appearance) -Ulcer Cleansing Wound Cleanser -Foul Odor after Cleansing No -Anesthetic Used 4% Lidocaine Solution WC - Nurse 2 - General Ulcer CM Notes Start: 05/16/24 08:29 Freq: Status: Active Protocol: Activity Type Activity Date Activity User E-sign Co-sign Detail Recorded Client Recorded Date Recorded By Document 05/16/24 08:53 TALI [id number] 05/16/24 09:00 TALI 05/16/24 08:53 Wound Center Nurse 2 #7 LT HEEL -Time 08:58 -Correct Patient Yes -Correct Side, Site, Position Yes -Correct Procedure Yes -Procedure Performed Yes -Type of Procedure Debridement -Clinical Debridement Subcutaneous -Tissue Removed Subcutaneous -Post Debridement (cm) - Length 1.2 -Post Debridement (cm) - Width 1.2 -Post Debridement (cm) - Depth 0.4 -Total Square (Post) (cm) 1.44 -Area of Debridement (cm) - Length 1.2 -Area of Debridement (cm) - Width 1.2 -Total Square (Area) (cm) 1.44 -Tunneling No -Undermining/Tunneling No -Circular Undermining No -Wound/Ulcer Outcome Not Healed -Ulcer Cleansing Rinsed/ Irrigated with Saline -Foul Odor after Cleansing No -Bioengineered Tissue Yes -Type of Bioengineered Tissue Epifix 18mm Disc -Expiration Date 12/10/28 -Product Lot Number [id number] -Percent Used 100 -Lot number of Saline Used [id number] -Bleeding Controlled with Pressure -Treatment Response Procedure Tolerated Well -Offloading No -Debridement - Subq, 1st 20sq cm No -Apply Skin Sub - 1st 25 sq cm - Feet 1 -Epifix 18mm Disc 3 #5 RT LAT LE POST-OP -Time 09:00 -Correct Patient Yes -Correct Side, Site, Position Yes -Correct Procedure Yes -Procedure Performed Yes -Type of Procedure Debridement -Clinical Debridement Subcutaneous -Tissue Removed Subcutaneous -Post Debridement (cm) - Length 19 -Post Debridement (cm) - Width 4 -Post Debridement (cm) - Depth 0.2 -Total Square (Post) (cm) 76 -Area of Debridement (cm) - Length 19 -Area of Debridement (cm) - Width 4 -Total Square (Area) (cm) 76 -Tunneling No -Undermining/Tunneling No -Circular Undermining No -Wound/Ulcer Outcome Not Healed -Ulcer Cleansing Rinsed/ Irrigated with Saline -Foul Odor after Cleansing No -Bioengineered Tissue No -Bleeding Controlled with Pressure -Treatment Response Procedure Tolerated Well -Offloading No -Debridement - Subq, 1st 20sq cm Yes -Debridement, SubQ, ea addt'l 20sq cm 3 or part thereof Pain Scale: 0-10 Numeric Is Patient Pain Free? Yes Assessment/Plan Assessment/Plan (1) Non-pressure chronic ulcer of other part of right lower leg with fat layer exposed: CODE(S): L97.812 - Non-pressure chronic ulcer of other part of right lower leg with fat layer exposed PLAN: Patient was examined and evaluated. All findings were discussed with the patient. All questions were answered to the patient's satisfaction. Excisional debridement of right lateral leg ulceration and plantar left heel ulceration was performed using a 7 mm dermal curette down to including level of subcutaneous tissue removing any nonviable tissue from the area. Pre and postdebridement measurements documented nursing notes. Topical anesthesia was used. He hemostased obtained with light compression. Patient tolerated procedure well. EpiFix 18 mm disc was applied to the left full-thickness ulceration with 100% use. Second application. The graft site was free and clear of any infection. The wound/skin graft substitute was dressed with nonadherent bandage secured in place with Steri-Strips followed by bolster dressing as well as a Celso wrap. Orders will be given for the correction to change right lower extremity every other day with collagen dry sterile dressing and Celso wrap. The left lower extremity heel/graft will be left clean dry and intact and not to be removed. Patient will continue strict blood sugar control. Patient will be booked for surgical surgical skin graft site prep with application of skin graft substitute to bilateral full-thickness wound with the patient is medically cleared. Follow-up with Dr. Shannon in 1 week (2) Non-pressure chronic ulcer of left heel and 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: CODE(S): L97.422 - Non-pressure chronic ulcer of left heel and 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 (3) Other specified peripheral vascular diseases: CODE(S): I73.89 - Other specified peripheral vascular diseases
--- NOTE | 2024-05-17 13:22 | WC ---
PHOTO 05/16/24 MOIRA LATERAL
[2024-05-24 08:40] VITALS: BP 142/74; PULSE 57; RESP 18; TEMP 36.2; BMI 44.6
--- NOTE | 2024-05-24 09:23 | PN.PCM_ITS ---
History of Present Illness Date of Service: 05/24/24 Chief Complaint: Right buttock ulceration History of Wound: This is a 68-year-old morbidly obese diabetic male who sees Dr. Shannon for 3 large ulcerations on the right lateral calf. He is a resident of [facility] in [place], [place]. He has a history of bilateral lower extremity deep vein thrombosis, and a venous duplex examination performed on October 22, 2023, revealed chronic changes in the right lower extremity deep venous system, with a normal superficial venous system. Management of the patient's wound had been by means of the [facility] Optometrist/Practice Owner, Dr. Reyna, from [place], [place]. Approximately 1 week prior to presentation, the patient underwent placement of a left upper extremity PICC catheter and has been receiving vancomycin and Zosyn intravenously. The patient had been on chronic systemic anticoagulation with Eliquis until recently, which was discontinued as a result of his recent gastrointestinal bleeding. He developed a right buttocks (ischial area) pressure sore over the past month. He denies sleeping on low air loss mattress because he is unable to move it the bed and he finds it very difficult to move and to breath. He wears CPAP at night that he states he must sleep on his back when wearing. He admits to sitting for long periods of time in his wheel chair. He sits on a cushion and a pillow. He states they have been putting a barrier cream on the area and he believes it is making it worse. He states it is painful to touch and to sit on. Subjective Subjective Mr. Gutierrez is a 69-year-old diabetic male presented with [facility] today follow-up evaluation of right full-thickness ulceration and left heel full- thickness ulceration with graft application. Patient has been compliant with dressing changes nursing facility. He has been getting every other day dressing changes to the right lower extremity. He has left the graft clean dry and intact. He was seen by outside provider due to my absence last week. He is do ing well and in good spirits. He overall he is pain-free. Blood sugar well- controlled. Denies trauma. Denies constitutional symptoms. No other pedal complaints at this time. Objective Data Objective Data Vital Signs: Vital Signs Temp Pulse Resp BP O2 Del Method 97.2 F L 57 L 18 142/74 H Room Air 05/24/24 08:40 05/24/24 08:40 05/24/24 08:40 05/24/24 08:40 05/24/24 08:40 Oxygen Delivery Method Room Air Weight: 157.85 kg Body Mass Index (BMI) 44.6 Physical Exam Narrative Vascular: DP and PT pulses are palpable to the right lower extremity. Nonpitting edema appreciated to the right lower extremity. Skin temperature gradient is warm to warm from proximal ankles to distal digit. No focal increase appreciated. Neurological: Light touch intact. Patient response to painful stimuli. Protective sensation is diminished. Dermatological: Full-thickness ulceration to the lateral aspect of the right leg measuring 19.7 x 6.2 x 0.1 cm. Wound base is granular. No malodor or probe to bone. No sign of infection. Full-thickness ulceration appreciated to the left heel measuring 1.0 x 1.2 x 0.2 cm. Wound base is granular nature. Excisional debridement of the lateral right leg ulceration down to including subcutaneous tissue with a number 7 mm dermal curette without incident. Predebridement measurement is 19.0 x 5.8 x 0.1 cm. Postdebridement measurement is 19.7 x 6.2 x 0.1 cm. Excisional debridement of the left heel dry eschar down to including subcutaneous tissue with a number 3 mm dermal curette without incident. Predebridement measurement was 0.8 x 1.0 x 0.1 cm. Postdebridement measurement is 1.0 x 1.2 x 0.2 cm. EpiFix 18 mm disc was applied to the left full-thickness ulceration with 100% use. Fourth application. The graft site was free and clear of any infection. The wound/skin graft substitute was dressed with nonadherent bandage secured in place with Steri-Strips followed by bolster dressing as well as a Celso wrap. Musculoskeletal: Mild pain to palpation to full-thickness ulceration. No pain with calf compression. Debridement Note Debridement Note Post-Debridement Measurements and Additional Note: Post-Debridement Measurements/Treatment WC - Nurse 1 - General Ulcer Assessment Start: 05/16/24 08:29 Freq: Status: Active Protocol: CODY.LOWEXT Activity Type Activity Date Activity User E-sign Co-sign Detail Recorded Client Recorded Date Recorded By Document 05/16/24 08:29 RB [id number] 05/16/24 08:40 RB Document 05/24/24 08:40 KW [id number] 05/24/24 08:55 KW 05/16/24 05/24/24 08:29 08:40 - Today's Visit Information Type of service Follow-up Visit Follow-up Visit (Physician/BLEACH TESTER (Physician/BLEACH TESTER ) ) Arrival Mode Ambulatory Ambulatory Transfer Assistance None Patient Identification Verified (Name & Yes Yes ) Patient Requires Transmission-Based No Precautions Height and Weight Body Mass Index (BMI) 44.6 44.6 BMI Classification Obese Obese Vital Signs Temperature (97.8 F-99.1 F) 98 F 97.2 F L Temperature Source Temporal Temporal Pulse Rate (60-100) 56 L 57 L Pulse Location Monitor Monitor Respiratory Rate (12-18) 18 18 Respiratory rate source Observation Observation Oxygen Delivery Method Room Air Blood Pressure (90/60-120/80) 158/72 H 142/74 H Blood Pressure Mean (mm Hg) 100 96 Source Monitor Monitor Position Semi-Fowlers Sitting Blood Pressure Location Left Arm Left Forearm History Since Last Visit- (Skip if this is Patient's initial visit) Have you changed medications since your No No last visit? Any new allergies or adverse reactions No No Had a fall/change in ADL's that may No No increase risk of falls Signs or symptoms of abuse and/or No No neglect since last visit Have you been in the hospital since your No No last visit? Has dressing in place as prescribed Yes Yes Has compression in place as prescribed Yes Yes Has offloadiing in place as prescribed No N/A Experienced any changes in pain level or No No management Left Footwear Regular Shoe Right Footwear Regular Shoe Pain Scale: 0-10 Numeric Is Patient Pain Free? Yes Yes - Nurse 1 - General Ulcer Measurement Start: 05/16/24 08:29 Freq: Status: Active Protocol: Activity Type Activity Date Activity User E-sign Co-sign Detail Recorded Client Recorded Date Recorded By Document 05/16/24 08:29 RB [id number] 05/16/24 08:40 RB Document 05/24/24 08:40 KW [id number] 05/24/24 08:55 KW 05/16/24 05/24/24 08:29 08:40 Wound Center Nurse 1 #7 LT HEEL -Combined with other wound No -Current Size (cm) - Length 0.1 0.1 -Current Size (cm) - Width 0.1 0.1 -Current Size (cm) - Depth 0.1 0.1 -Total Square Cm 0.01 0.01 -Photo Taken Yes -Tunneling No -Undermining/Tunneling No -Circular Undermining No -Exudate Amt Small None Present -Exudate Type Serosanguineous -Wound Margin Distinct, Distinct, Outline Outline Attached Attached -Granulation Amt Small (1-33%) -Granulation Quality [place] -Slough/Fibrin Yes -Necrosis Amt Large (67-100%) Large (67-100%) -Necrotic Tissue Type Adherent Slough Eschar -Structure Exposed N/A -Texture (Mariza-wound Skin Appearance) Assessed Assessed -Moisture (Mariza-wound Skin Appearance) Assessed Assessed -Color (Mariza-wound Skin Appearance) Assessed Assessed -Temperature (Mariza-wound Skin No Abnormality No Abnormality Appearance) (Pt Warm) (Pt Warm) -Tenderness on Palpation (Mariza-wound No Skin Appearance) -Ulcer Cleansing Wound Cleanser Soap and Water -Foul Odor after Cleansing No -Anesthetic Used 5% Lidocaine 5% Lidocaine Gel Gel -Wound Comment(s) scabbed over #5 RT LAT LE POST-OP -Combined with other wound No -Current Size (cm) - Length 18.7 19.2 -Current Size (cm) - Width 5.5 6 -Current Size (cm) - Depth 0.1 0.1 -Total Square Cm 102.85 115.2 -Photo Taken Yes -Tunneling No -Undermining/Tunneling No -Circular Undermining No -Exudate Amt Large Medium -Exudate Type Serosanguineous Serosanguineous -Wound Margin Distinct, Distinct, Outline Outline Attached Attached -Granulation Amt Large (67-100%) Large (67-100%) -Granulation Quality [place],Red Red -Slough/Fibrin Yes -Necrosis Amt Small (1-33%) Small (1-33%) -Necrotic Tissue Type Adherent Slough Adherent Slough -Structure Exposed N/A -Texture (Mariza-wound Skin Appearance) Assessed, Assessed Scarring -Moisture (Mariza-wound Skin Appearance) Dry/Scaly Assessed -Color (Mariza-wound Skin Appearance) Assessed Assessed, Hemosiderin Staining -Temperature (Mariza-wound Skin No Abnormality No Abnormality Appearance) (Pt Warm) (Pt Warm) -Tenderness on Palpation (Mariza-wound No No Skin Appearance) -Ulcer Cleansing Wound Cleanser Soap and Water -Foul Odor after Cleansing No No -Anesthetic Used 4% Lidocaine 4% Lidocaine Solution Solution WC - Nurse 2 - General Ulcer CM Notes Start: 05/16/24 08:29 Freq: Status: Active Protocol: Activity Type Activity Date Activity User E-sign Co-sign Detail Recorded Client Recorded Date Recorded By Document 05/16/24 08:53 JF [id number] 05/16/24 09:00 JF Document 05/24/24 09:03 JF [id number] 05/24/24 09:13 05/16/24 05/24/24 08:53 09:03 Wound Center Nurse 2 #7 LT HEEL -Time 08:58 09:07 -Correct Patient Yes Yes -Correct Side, Site, Position Yes Yes -Correct Procedure Yes Yes -Procedure Performed Yes Yes -Type of Procedure Debridement Debridement -Clinical Debridement Subcutaneous Subcutaneous -Tissue Removed Subcutaneous Subcutaneous -Post Debridement (cm) - Length 1.2 1.0 -Post Debridement (cm) - Width 1.2 1.2 -Post Debridement (cm) - Depth 0.4 0.2 -Total Square (Post) (cm) 1.44 1.20 -Area of Debridement (cm) - Length 1.2 1.0 -Area of Debridement (cm) - Width 1.2 1.2 -Total Square (Area) (cm) 1.44 1.20 -Tunneling No No -Undermining/Tunneling No No -Circular Undermining No No -Wound/Ulcer Outcome Not Healed Not Healed -Ulcer Cleansing Rinsed/ Rinsed/ Irrigated with Irrigated with Saline Saline -Foul Odor after Cleansing No No -Bioengineered Tissue Yes Yes -Type of Bioengineered Tissue Epifix 18mm Epifix 18mm Disc Disc -Expiration Date 12/10/28 10/10/28 -Product Lot Number [id number] -Percent Used 100 100 -Lot number of Saline Used [id number] -Bleeding Controlled with Pressure Pressure -Treatment Response Procedure Procedure Tolerated Well Tolerated Well -Offloading No No -Debridement - Subq, 1st 20sq cm No No -Apply Skin Sub - 1st 25 sq cm - Feet 1 1 -Epifix (per sq cm) 4 -Epifix 18mm Disc 3 #5 RT LAT LE POST-OP -Time 09:00 09:03 -Correct Patient Yes Yes -Correct Side, Site, Position Yes Yes -Correct Procedure Yes Yes -Procedure Performed Yes Yes -Type of Procedure Debridement Debridement -Clinical Debridement Subcutaneous Subcutaneous -Tissue Removed Subcutaneous Subcutaneous -Post Debridement (cm) - Length 19 19.7 -Post Debridement (cm) - Width 4 6.2 -Post Debridement (cm) - Depth 0.2 0.1 -Total Square (Post) (cm) 76 122.14 -Area of Debridement (cm) - Length 19 19.7 -Area of Debridement (cm) - Width 4 6.2 -Total Square (Area) (cm) 76 122.14 -Tunneling No No -Undermining/Tunneling No No -Circular Undermining No No -Wound/Ulcer Outcome Not Healed Not Healed -Ulcer Cleansing Rinsed/ Rinsed/ Irrigated with Irrigated with Saline Saline -Foul Odor after Cleansing No No -Bioengineered Tissue No No -Bleeding Controlled with Pressure Pressure -Treatment Response Procedure Procedure Tolerated Well Tolerated Well -Offloading No No -Debridement - Subq, 1st 20sq cm Yes Yes -Debridement, SubQ, ea addt'l 20sq cm 3 6 or part thereof Pain Scale: 0-10 Numeric Is Patient Pain Free? Yes Yes WC - Nurse 3 - General Ulcer D/C NN Start: 05/16/24 08:29 Freq: Status: Active Protocol: Activity Type Activity Date Activity User E-sign Co-sign Detail Recorded Client Recorded Date Recorded By Document 05/16/24 09:08 HANNAH [id number] 05/16/24 09:09 HANNAH 05/16/24 09:08 Wound Care Center Nurse 3 #7 LT HEEL -Primary Dressing Covered/Secured with Dry Gauze & Roll Gauze, Secured with Tape #5 RT LAT LE POST-OP -Primary Dressing Applied Fibracol Plus 4x4 -Primary Dressing Covered/Secured with Dry Gauze & Roll Gauze, Secured with Tape -Fibracol Plus 4x4 1 Right -Compression Wrap Celso Wrap Left -Compression Wrap Celso Wrap Pain Scale: 0-10 Numeric Is Patient Pain Free? Yes Assessment/Plan Assessment/Plan (1) Non-pressure chronic ulcer of left heel and 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: CODE(S): L97.422 - Non-pressure chronic ulcer of left heel and 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 PLAN: Patient was examined and evaluated. All findings were discussed with the patient. All questions were answered to the patient's satisfaction. Excisional debridement of the lateral right leg ulceration down to including subcutaneous tissue with a number 7 mm dermal curette without incident. Predebridement measurement is 19.0 x 5.8 x 0.1 cm. Postdebridement measurement is 19.7 x 6.2 x 0.1 cm. Excisional debridement of the left heel dry eschar down to including subcutaneous tissue with a number 3 mm dermal curette without incident. Predebridement measurement was 0.8 x 1.0 x 0.1 cm. Postdebridement measurement is 1.0 x 1.2 x 0.2 cm. EpiFix 18 mm disc was applied to the left full-thickness ulceration with 100% use. Fourth application. The graft site was free and clear of any infection. The wound/skin graft substitute was dressed with nonadherent bandage secured in place with Steri-Strips followed by bolster dressing as well as a Celso wrap. Bilateral compression wraps were applied to the bilateral lower extremity. Patient continue strict blood sugar control. Patient will continue every other day dressing changes to right lower extremity. The left lower extremity heel graft will be left clean dry and intact until fo llow-up. Follow-up at the wound care center with Dr. Shannon in 1 week. (2) Non-pressure chronic ulcer of other part of right lower leg with fat layer exposed: CODE(S): L97.812 - Non-pressure chronic ulcer of other part of right lower leg with fat layer exposed
[2024-05-31 09:08] VITALS: BP 131/76; PULSE 57; RESP 18; TEMP 35.9; BMI 44.6
--- NOTE | 2024-05-31 10:10 | PN.PCM_ITS ---
History of Present Illness Date of Service: 05/31/24 Chief Complaint: Right buttock ulceration History of Wound: This is a 68-year-old morbidly obese diabetic male who sees Dr. Shannon for 3 large ulcerations on the right lateral calf. He is a resident of [facility] in [place], [place]. He has a history of bilateral lower extremity deep vein thrombosis, and a venous duplex examination performed on October 22, 2023, revealed chronic changes in the right lower extremity deep venous system, with a normal superficial venous system. Management of the patient's wound had been by means of the [facility] [employer], Dr. Reyna, from [place], [place]. Approximately 1 week prior to presentation, the patient underwent placement of a left upper extremity PICC catheter and has been receiving vancomycin and Zosyn intravenously. The patient had been on chronic systemic anticoagulation with Eliquis until recently, which was discontinued as a result of his recent gastrointestinal bleeding. He developed a right buttocks (ischial area) pressure sore over the past month. He denies sleeping on low air loss mattress because he is unable to move it the bed and he finds it very difficult to move and to breath. He wears CPAP at night that he states he must sleep on his back when wearing. He admits to sitting for long periods of time in his wheel chair. He sits on a cushion and a pillow. He states they have been putting a barrier cream on the area and he believes it is making it worse. He states it is painful to touch and to sit on. Progress of Wound: Patient is presenting up for follow-up of full-thickness ulceration to right leg and pressure sore to the left heel. Wounds have been improving with application of skin graft substitute to left heel and regular weekly debridements to the right leg and collagen application while at the wound care center in the facility. Patient admits great improvement. He is grateful his care. Denies trauma. Denies constitutional symptoms. No other pedal complaints at this time. Subjective Subjective Mr. Gutierrez is a 69-year-old diabetic male presented wound care center today for follow-up evaluation of bilateral full-thickness wounds to the right leg and left heel. Patient has been getting dressing changes to the right lower extremity every other day at the nursing facility with collagen applications and compression wrap. The left heel graft has been left clean dry and intact. Blood sugar well-controlled. He denies any pain to bilateral lower extremity. Denies trauma. Denies constitutional symptoms. No other pedal complaints at this time. Objective Data Objective Data Vital Signs: Vital Signs Temp Pulse Resp BP O2 Del Method 96.6 F L 57 L 18 131/76 H Room Air 05/31/24 09:08 05/31/24 09:08 05/31/24 09:08 05/31/24 09:08 05/31/24 09:08 Oxygen Delivery Method Room Air Weight: 157.85 kg Body Mass Index (BMI) 44.6 Physical Exam Narrative Vascular: DP and PT pulses are palpable to the right lower extremity. Nonpitting edema appreciated to the right lower extremity. Skin temperature gradient is warm to warm from proximal ankles to distal digit. No focal increase appreciated. Neurological: Light touch intact. Patient response to painful stimuli. Protective sensation is diminished. Dermatological: Full-thickness ulceration to the lateral aspect of the right leg measuring 19.4 x 5.2 x 0.1 cm. Wound base is granular. No malodor or probe to bone. No sign of infection. Full-thickness ulceration appreciated to the left heel measuring 0.8 x 0.9 x 0.2 cm. Wound base is granular nature. Excisional debridement of the lateral right leg ulceration down to including subcutaneous tissue with a number 7 mm dermal curette without incident. Predebridement measurement is 19.0 x 5.0 x 0.1 cm. Postdebridement measurement is 19.4 x 5.2 x 0.1 cm. Excisional debridement of the left heel dry eschar down to including subcutaneous tissue with a number 3 mm dermal curette without incident. Predebridement measurement was sanguinous crust postdebridement measurement is 0.8 x 0.9 x 0.2 cm. EpiFix 18 mm disc was applied to the left full-thickness ulceration with 100% use. Fifth application. The graft site was free and clear of any infection. The wound/skin graft substitute was dressed with nonadherent bandage secured in place with Steri-Strips followed by bolster dressing as well as a Celso wrap. Musculoskeletal: Mild pain to palpation to full-thickness ulceration. No pain with calf compression. Debridement Note Debridement Note Debridement Free Text: Excisional debridement of the lateral right leg ulceration down to including subcutaneous tissue with a number 7 mm dermal curette without incident. Predebridement measurement is 19.0 x 5.0 x 0.1 cm. Postdebridement measurement is 19.4 x 5.2 x 0.1 cm. Excisional debridement of the left heel dry eschar down to including subcutaneous tissue with a number 3 mm dermal curette without incident. Predebridement measurement was sanguinous crust postdebridement measurement is 0.8 x 0.9 x 0.2 cm. EpiFix 18 mm disc was applied to the left full-thickness ulceration with 100% use. Fifth application. The graft site was free and clear of any infection. The wound/skin graft substitute was dressed with nonadherent bandage secured in place with Steri-Strips followed by bolster dressing as well as a Celso wrap. Post-Debridement Measurements and Additional Note: Post-Debridement Measurements/Treatment - Nurse 1 - General Ulcer Assessment Start: 05/16/24 08:29 Freq: Status: Active Protocol: GALE Activity Type Activity Date Activity User E-sign Co-sign Detail Recorded Client Recorded Date Recorded By Document 05/16/24 08:29 RB [id number] 05/16/24 08:40 RB Document 05/24/24 08:40 KW [id number] 05/24/24 08:55 KW Document 05/31/24 09:08 GM [id number] 05/31/24 09:11 GM 05/16/24 05/24/24 05/31/24 08:29 08:40 09:08 - Today's Visit Information Type of service Follow-up Visit Follow-up Visit Follow-up Visit (Physician/TRAFFIC ASSISTANT (Physician/TRAFFIC ASSISTANT (Physician/TRAFFIC ASSISTANT ) ) ) Arrival Mode Ambulatory Ambulatory Ambulatory Transfer Assistance None None Patient Identification Verified (Name & Yes Yes Yes ) Patient Requires Transmission-Based No Precautions Height and Weight Body Mass Index (BMI) 44.6 44.6 44.6 BMI Classification Obese Obese Obese Vital Signs Temperature (97.8 F-99.1 F) 98 F 97.2 F L 96.6 F L Temperature Source Temporal Temporal Temporal Pulse Rate (60-100) 56 L 57 L 57 L Pulse Location Monitor Monitor Monitor Respiratory Rate (12-18) 18 18 18 Respiratory rate source Observation Observation Observation Oxygen Delivery Method Room Air Room Air Blood Pressure (90/60-120/80) 158/72 H 142/74 H 131/76 H Blood Pressure Mean (mm Hg) 100 96 94 Source Monitor Monitor Monitor Position Semi-Fowlers Sitting Sitting Blood Pressure Location Left Arm Left Forearm Left Arm History Since Last Visit- (Skip if this is Patient's initial visit) Have you changed medications since your No No No last visit? Any new allergies or adverse reactions No No No Had a fall/change in ADL's that may No No No increase risk of falls Signs or symptoms of abuse and/or No No No neglect since last visit Have you been in the hospital since your No No No last visit? Has dressing in place as prescribed Yes Yes Yes Has compression in place as prescribed Yes Yes Yes Has offloadiing in place as prescribed No N/A No Experienced any changes in pain level or No No No management Left Footwear Regular Shoe Diabetic Shoe Right Footwear Regular Shoe Diabetic Shoe Pain Scale: 0-10 Numeric Is Patient Pain Free? Yes Yes Yes WC - Nurse 1 - General Ulcer Measurement Start: 05/16/24 08:29 Freq: Status: Active Protocol: Activity Type Activity Date Activity User E-sign Co-sign Detail Recorded Client Recorded Date Recorded By Document 05/16/24 08:29 RB [id number] 05/16/24 08:40 RB Document 05/24/24 08:40 KW [id number] 05/24/24 08:55 KW Document 05/31/24 09:08 [id number] 05/31/24 09:11 05/16/24 05/24/24 05/31/24 08:29 08:40 09:08 Wound Center Nurse 1 #7 LT HEEL -Combined with other wound No No -Current Size (cm) - Length 0.1 0.1 1.0 -Current Size (cm) - Width 0.1 0.1 1.0 -Current Size (cm) - Depth 0.1 0.1 0.1 -Total Square Cm 0.01 0.01 1.00 -Photo Taken Yes No -Epithelialization Small 1-33% -Tunneling No No -Undermining/Tunneling No No -Circular Undermining No No -Exudate Amt Small None Present Small -Exudate Type Serosanguineous Serosanguineous -Wound Margin Distinct, Distinct, Distinct, Outline Outline Outline Attached Attached Attached -Granulation Amt Small (1-33%) Small (1-33%) -Granulation Quality [place] Red -Slough/Fibrin Yes No -Necrosis Amt Large (67-100%) Large (67-100%) None Present (0 %) -Necrotic Tissue Type Adherent Slough Eschar -Structure Exposed N/A -Texture (Mariza-wound Skin Appearance) Assessed Assessed Assessed -Moisture (Mariza-wound Skin Appearance) Assessed Assessed Assessed -Color (Mariza-wound Skin Appearance) Assessed Assessed Assessed -Temperature (Mariza-wound Skin No Abnormality No Abnormality No Abnormality Appearance) (Pt Warm) (Pt Warm) (Pt Warm) -Tenderness on Palpation (Mariza-wound No Skin Appearance) -Ulcer Cleansing Wound Cleanser Soap and Water Soap and Water -Foul Odor after Cleansing No No -Anesthetic Used 5% Lidocaine 5% Lidocaine 5% Lidocaine Gel Gel Gel -Wound Comment(s) scabbed over #5 RT LAT LE POST-OP -Combined with other wound No -Current Size (cm) - Length 18.7 19.2 0.1 -Current Size (cm) - Width 5.5 6 0.1 -Current Size (cm) - Depth 0.1 0.1 0.1 -Total Square Cm 102.85 115.2 0.01 -Photo Taken Yes No -Epithelialization None Present -Tunneling No No -Undermining/Tunneling No No -Circular Undermining No No -Change in Wound Grade/Stage No -Exudate Amt Large Medium Medium -Exudate Type Serosanguineous Serosanguineous Serosanguineous -Wound Margin Distinct, Distinct, Distinct, Outline Outline Outline Attached Attached Attached -Granulation Amt Large (67-100%) Large (67-100%) Large (67-100%) -Granulation Quality [place],Red Red Red -Slough/Fibrin Yes No -Necrosis Amt Small (1-33%) Small (1-33%) None Present (0 %) -Necrotic Tissue Type Adherent Slough Adherent Slough -Structure Exposed N/A -Texture (Mariza-wound Skin Appearance) Assessed, Assessed Assessed Scarring -Moisture (Mariza-wound Skin Appearance) Dry/Scaly Assessed Assessed -Color (Mariza-wound Skin Appearance) Assessed Assessed, Assessed Hemosiderin Staining -Temperature (Mariza-wound Skin No Abnormality No Abnormality No Abnormality Appearance) (Pt Warm) (Pt Warm) (Pt Warm) -Tenderness on Palpation (Mariza-wound No No Skin Appearance) -Ulcer Cleansing Wound Cleanser Soap and Water Soap and Water -Foul Odor after Cleansing No No No -Anesthetic Used 4% Lidocaine 4% Lidocaine 4% Lidocaine Solution Solution Solution WC - Nurse 2 - General Ulcer CM Notes Start: 05/16/24 08:29 Freq: Status: Active Protocol: Activity Type Activity Date Activity User E-sign Co-sign Detail Recorded Client Recorded Date Recorded By Document 05/16/24 08:53 [id number] 05/16/24 09:00 Document 05/24/24 09:03 [id number] 05/24/24 09:13 Document 05/31/24 09:20 [id number] 05/31/24 09:35 JF 05/16/24 05/24/24 05/31/24 08:53 09:03 09:20 Wound Center Nurse 2 #7 LT HEEL -Time 08:58 09:07 09:27 -Correct Patient Yes Yes Yes -Correct Side, Site, Position Yes Yes Yes -Correct Procedure Yes Yes Yes -Procedure Performed Yes Yes Yes -Type of Procedure Debridement Debridement Debridement -Clinical Debridement Subcutaneous Subcutaneous Subcutaneous -Tissue Removed Subcutaneous Subcutaneous Subcutaneous -Post Debridement (cm) - Length 1.2 1.0 0.8 -Post Debridement (cm) - Width 1.2 1.2 0.9 -Post Debridement (cm) - Depth 0.4 0.2 0.2 -Total Square (Post) (cm) 1.44 1.20 0.72 -Area of Debridement (cm) - Length 1.2 1.0 0.8 -Area of Debridement (cm) - Width 1.2 1.2 0.9 -Total Square (Area) (cm) 1.44 1.20 0.72 -Tunneling No No No -Undermining/Tunneling No No No -Circular Undermining No No No -Wound/Ulcer Outcome Not Healed Not Healed Not Healed -Ulcer Cleansing Rinsed/ Rinsed/ Rinsed/ Irrigated with Irrigated with Irrigated with Saline Saline Saline -Foul Odor after Cleansing No No No -Bioengineered Tissue Yes Yes Yes -Type of Bioengineered Tissue Epifix 18mm Epifix 18mm Epifix 18mm Disc Disc Disc -Expiration Date 12/10/28 10/10/28 12/10/28 -Product Lot Number [id number] -Percent Used 100 100 100 -Lot number of Saline Used [id number] -Bleeding Controlled with Pressure Pressure Pressure -Treatment Response Procedure Procedure Procedure Tolerated Well Tolerated Well Tolerated Well -Offloading No No No -Debridement - Subq, 1st 20sq cm No No No -Apply Skin Sub - 1st 25 sq cm - Feet 1 1 1 -Epifix (per sq cm) 4 -Epifix 18mm Disc 3 3 #5 RT LAT LE POST-OP -Time 09:00 09:03 09:21 -Correct Patient Yes Yes Yes -Correct Side, Site, Position Yes Yes Yes -Correct Procedure Yes Yes Yes -Procedure Performed Yes Yes Yes -Type of Procedure Debridement Debridement Debridement -Clinical Debridement Subcutaneous Subcutaneous Subcutaneous -Tissue Removed Subcutaneous Subcutaneous Subcutaneous -Post Debridement (cm) - Length 19 19.7 19.4 -Post Debridement (cm) - Width 4 6.2 5.2 -Post Debridement (cm) - Depth 0.2 0.1 0.1 -Total Square (Post) (cm) 76 122.14 100.88 -Area of Debridement (cm) - Length 19 19.7 19.4 -Area of Debridement (cm) - Width 4 6.2 5.2 -Total Square (Area) (cm) 76 122.14 100.88 -Tunneling No No No -Undermining/Tunneling No No No -Circular Undermining No No No -Wound/Ulcer Outcome Not Healed Not Healed Not Healed -Ulcer Cleansing Rinsed/ Rinsed/ Rinsed/ Irrigated with Irrigated with Irrigated with Saline Saline Saline -Foul Odor after Cleansing No No No -Bioengineered Tissue No No No -Bleeding Controlled with Pressure Pressure Pressure -Treatment Response Procedure Procedure Procedure Tolerated Well Tolerated Well Tolerated Well -Offloading No No No -Debridement - Subq, 1st 20sq cm Yes Yes Yes -Debridement, SubQ, ea addt'l 20sq cm 3 6 5 or part thereof Pain Scale: 0-10 Numeric Is Patient Pain Free? Yes Yes Yes WC - Nurse 3 - General Ulcer D/C NN Start: 05/16/24 08:29 Freq: Status: Active Protocol: Activity Type Activity Date Activity User E-sign Co-sign Detail Recorded Client Recorded Date Recorded By Document 05/16/24 09:08 [id number] 05/16/24 09:09 KW Document 05/24/24 09:30 GM [id number] 05/24/24 09:31 GM Document 05/31/24 09:53 KW [id number] 05/31/24 09:54 KW 05/16/24 05/24/24 05/31/24 09:08 09:30 09:53 Wound Care Center Nurse 3 #7 LT HEEL -Ulcer Cleansing Not Cleansed Not Cleansed -Foul Odor after Cleansing No No -Primary Dressing Covered/Secured with Dry Gauze & Dry Gauze,Dry Dry Gauze & Roll Gauze, Gauze & Roll Roll Gauze, Secured with Gauze,Secured Secured with Tape with Tape Tape #5 RT LAT LE POST-OP -Ulcer Cleansing Not Cleansed Not Cleansed -Foul Odor after Cleansing No No -Primary Dressing Applied Fibracol Plus Fibracol Plus Fibracol Plus 4x4 4x4 4x4 -Primary Dressing Covered/Secured with Dry Gauze & Dry Gauze & Dry Gauze,Dry Roll Gauze, Roll Gauze, Gauze & Roll Secured with Secured with Gauze,Secured Tape Tape with Tape -Fibracol Plus 4x4 1 1 1 Right -Lotion applied to leg before No compression wrap -Compression Wrap Celso Wrap Celso Wrap Celso Wrap Left -Lotion applied to leg before No compression wrap -Compression Wrap Celso Wrap Celso Wrap Celso Wrap Pain Scale: 0-10 Numeric Is Patient Pain Free? Yes Yes Yes WC - Visit Discharge Discharge Condition Stable Stable Ambulatory Status Ambulatory Ambulatory Transportation Private Auto Private Auto Assessment/Plan Assessment/Plan (1) Non-pressure chronic ulcer of left heel and 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: CODE(S): L97.422 - Non-pressure chronic ulcer of left heel and 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 PLAN: Patient was examined and evaluated. All findings were discussed with the patient. All questions were answered to the patient's satisfaction. Excisional debridement of the lateral right leg ulceration down to including subcutaneous tissue with a number 7 mm dermal curette without incident. Predebridement measurement is 19.0 x 5.0 x 0.1 cm. Postdebridement measurement is 19.4 x 5.2 x 0.1 cm. Excisional debridement of the left heel dry eschar down to including subcutaneous tissue with a number 3 mm dermal curette without incident. Predebridement measurement was sanguinous crust postdebridement measurement is 0.8 x 0.9 x 0.2 cm. EpiFix 18 mm disc was applied to the left full-thickness ulceration with 100% use. Fifth application. The graft site was free and clear of any infection. The wound/skin graft substitute was dressed with nonadherent bandage secured in place with Steri-Strips followed by bolster dressing as well as a Celso wrap. Bilateral compression wraps were applied to the bilateral lower extremity. Patient continue strict blood sugar control. We will move forward with surgical skin graft site prep with application as described substitute to right lower extremity. Patient understand all risk and benefits. Chart review consent signed. Surgery will be planned for next Wednesday. Follow-up at the wound care center with Dr. Shannon in 1 week. (2) Non-pressure chronic ulcer of other part of right lower leg with fat layer exposed: CODE(S): L97.812 - Non-pressure chronic ulcer of other part of right lower leg with fat layer exposed
[2024-06-07 08:53] VITALS: BP 134/99; PULSE 60; RESP 18; TEMP 36.1; BMI 44.6
--- NOTE | 2024-06-07 10:25 | PN.PCM_ITS ---
History of Present Illness Date of Service: 06/07/24 Chief Complaint: Right buttock ulceration History of Wound: This is a 68-year-old morbidly obese diabetic male who sees Dr. Shannon for 3 large ulcerations on the right lateral calf. He is a resident of [facility] in [place], [place]. He has a history of bilateral lower extremity deep vein thrombosis, and a venous duplex examination performed on October 22, 2023, revealed chronic changes in the right lower extremity deep venous system, with a normal superficial venous system. Management of the patient's wound had been by means of the [facility] [employer], Dr. Reyna, from [place], [place]. Approximately 1 week prior to presentation, the patient underwent placement of a left upper extremity PICC catheter and has been receiving vancomycin and Zosyn intravenously. The patient had been on chronic systemic anticoagulation with Eliquis until recently, which was discontinued as a result of his recent gastrointestinal bleeding. He developed a right buttocks (ischial area) pressure sore over the past month. He denies sleeping on low air loss mattress because he is unable to move it the bed and he finds it very difficult to move and to breath. He wears CPAP at night that he states he must sleep on his back when wearing. He admits to sitting for long periods of time in his wheel chair. He sits on a cushion and a pillow. He states they have been putting a barrier cream on the area and he believes it is making it worse. He states it is painful to touch and to sit on. Progress of Wound: Patient is presenting up for follow-up of full-thickness ulceration to right leg and pressure sore to the left heel. Wounds have been improving with application of skin graft substitute to left heel and regular weekly debridements to the right leg and collagen application while at the wound care center in the facility. Patient admits great improvement. He is grateful his care. Denies trauma. Denies constitutional symptoms. No other pedal complaints at this time. Subjective Subjective Mr. Gutierrez is a 69-year-old diabetic male presenting to wound care center today for follow-up and evaluation of status post excisional debridement with amniotic skin graft substitute to the right lower extremity. He is also presenting today for follow-up evaluation of left heel ulceration with amniotic skin graft substi tute provided by the wound care center. Doing well no pain. He has been compliant with his dressings and left them clean dry and intact. Denies trauma. Denies constitutional symptoms. No other pedal complaints at this time. Objective Data Objective Data Vital Signs: Vital Signs Temp Pulse Resp BP O2 Del Method 97 F L 60 18 134/99 H Room Air 06/07/24 08:53 06/07/24 08:53 06/07/24 08:53 06/07/24 08:53 06/07/24 08:53 Oxygen Delivery Method Room Air Weight: 157.85 kg Body Mass Index (BMI) 44.6 Physical Exam Narrative Vascular: DP and PT pulses are palpable to the right lower extremity. Nonpitting edema appreciated to the right lower extremity. Skin temperature gradient is warm to warm from proximal ankles to distal digit. No focal increase appreciated. Neurological: Light touch intact. Patient response to painful stimuli. Protective sensation is diminished. Dermatological: Full-thickness ulceration to the lateral aspect of the right leg measuring 20.2 x 5.8 x 0.1 cm. Wound base is granular. No malodor or probe to bone. No sign of infection. Full-thickness ulceration appreciated to the left heel measuring 0.7 x 0.6 x 0.2 cm. Wound base is granular nature. Excisional debridement of the left heel dry eschar down to including subcutaneous tissue with a number 3 mm dermal curette without incident. Predebridement measurement was sanguinous crust. postdebridement measurement is 0.7 x 0.6 x 0.2 cm. EpiFix 18 mm disc was applied to the left full-thickness ulceration with 100% use. Sixth application. The graft site was free and clear of any infection. The wound/skin graft substitute was dressed with nonadherent bandage secured in place with Steri-Strips followed by bolster dressing as well as a Celso wrap. Musculoskeletal: Mild pain to palpation to full-thickness ulceration. No pain with calf compression. Debridement Note Debridement Note Debridement Free Text: Excisional debridement of the left heel dry eschar down to including subcutaneous tissue with a number 3 mm dermal curette without incident. Predebridement measurement was sanguinous crust. postdebridement measurement is 0.7 x 0.6 x 0.2 cm. EpiFix 18 mm disc was applied to the left full-thickness ulceration with 100% use. Sixth application. The graft site was free and clear of any infection. The wound/skin graft substitute was dressed with nonadherent bandage secured in place with Steri-Strips followed by bolster dressing as well as a Celso wrap. Post-Debridement Measurements and Additional Note: Post-Debridement Measurements/Treatment WC - Nurse 1 - General Ulcer Assessment Start: 05/16/24 08:29 Freq: Status: Active Protocol: CODY.NATALIE Activity Type Activity Date Activity User E-sign Co-sign Detail Recorded Client Recorded Date Recorded By Document 05/16/24 08:29 RB [id number] 05/16/24 08:40 RB Document 05/24/24 08:40 KW [id number] 05/24/24 08:55 KW Document 05/31/24 09:08 GM [id number] 05/31/24 09:11 GM Document 06/07/24 08:53 MT [id number] 06/07/24 09:08 MT 05/16/24 05/24/24 05/31/24 08:29 08:40 09:08 - Today's Visit Information Type of service Follow-up Visit Follow-up Visit Follow-up Visit (Physician/DRESSMAKER OR TAILOR (Physician/DRESSMAKER OR TAILOR (Physician/DRESSMAKER OR TAILOR ) ) ) Arrival Mode Ambulatory Ambulatory Ambulatory Transfer Assistance None None Patient Identification Verified (Name & Yes Yes Yes ) Patient Requires Transmission-Based No Precautions Safety Precautions Finger Stick Blood Sugar(mg/dl) (if indicated): Blood Sugar Height and Weight Body Mass Index (BMI) 44.6 44.6 44.6 BMI Classification Obese Obese Obese Vital Signs Temperature (97.8 F-99.1 F) 98 F 97.2 F L 96.6 F L Temperature Source Temporal Temporal Temporal Pulse Rate (60-100) 56 L 57 L 57 L Pulse Location Monitor Monitor Monitor Respiratory Rate (12-18) 18 18 18 Respiratory rate source Observation Observation Observation Oxygen Delivery Method Room Air Room Air Blood Pressure (90/60-120/80) 158/72 H 142/74 H 131/76 H Blood Pressure Mean (mm Hg) 100 96 94 Source Monitor Monitor Monitor Position Semi-Fowlers Sitting Sitting Blood Pressure Location Left Arm Left Forearm Left Arm History Since Last Visit- (Skip if this is Patient's initial visit) Have you changed medications since your No No No last visit? Any new allergies or adverse reactions No No No Had a fall/change in ADL's that may No No No increase risk of falls Signs or symptoms of abuse and/or No No No neglect since last visit Have you been in the hospital since your No No No last visit? Has dressing in place as prescribed Yes Yes Yes Has compression in place as prescribed Yes Yes Yes Has offloadiing in place as prescribed No N/A No Experienced any changes in pain level or No No No management Left Footwear Regular Shoe Diabetic Shoe Right Footwear Regular Shoe Diabetic Shoe Pain Scale: 0-10 Numeric Is Patient Pain Free? Yes Yes Yes 06/07/24 08:53 WC - Today's Visit Information Type of service Arrival Mode Transfer Assistance Patient Identification Verified (Name & ) Patient Requires Transmission-Based Precautions Safety Precautions Fall Prevention Finger Stick Blood Sugar(mg/dl) (if 151 indicated): Blood Sugar Stated by Patient Height and Weight Body Mass Index (BMI) 44.6 BMI Classification Obese Vital Signs Temperature (97.8 F-99.1 F) 97 F L Temperature Source Temporal Pulse Rate (60-100) 60 Pulse Location Monitor Respiratory Rate (12-18) 18 Respiratory rate source Observation Oxygen Delivery Method Room Air Blood Pressure (90/60-120/80) 134/99 H Blood Pressure Mean (mm Hg) 110 Source Monitor Position Sitting Blood Pressure Location Left Arm History Since Last Visit- (Skip if this is Patient's initial visit) Have you changed medications since your last visit? Any new allergies or adverse reactions Had a fall/change in ADL's that may increase risk of falls Signs or symptoms of abuse and/or neglect since last visit Have you been in the hospital since your last visit? Has dressing in place as prescribed Yes Has compression in place as prescribed Yes Has offloadiing in place as prescribed Yes Experienced any changes in pain level or Yes management Left Footwear Diabetic Shoe Right Footwear Diabetic Shoe Pain Scale: 0-10 Numeric Is Patient Pain Free? Yes - Nurse 1 - General Ulcer Measurement Start: 05/16/24 08:29 Freq: Status: Active Protocol: Activity Type Activity Date Activity User E-sign Co-sign Detail Recorded Client Recorded Date Recorded By Document 05/16/24 08:29 RB [id number] 05/16/24 08:40 RB Document 05/24/24 08:40 KW [id number] 05/24/24 08:55 KW Document 05/31/24 09:08 GM [id number] 05/31/24 09:11 Document 06/07/24 08:53 RI [id number] 06/07/24 09:08 RI 05/16/24 05/24/24 05/31/24 08:29 08:40 09:08 Wound Center Nurse 1 #7 LT HEEL -Combined with other wound No No -Current Size (cm) - Length 0.1 0.1 1.0 -Current Size (cm) - Width 0.1 0.1 1.0 -Current Size (cm) - Depth 0.1 0.1 0.1 -Total Square Cm 0.01 0.01 1.00 -Photo Taken Yes No -Epithelialization Small 1-33% -Tunneling No No -Undermining/Tunneling No No -Circular Undermining No No -Exudate Amt Small None Present Small -Exudate Type Serosanguineous Serosanguineous -Wound Margin Distinct, Distinct, Distinct, Outline Outline Outline Attached Attached Attached -Granulation Amt Small (1-33%) Small (1-33%) -Granulation Quality [place] Red -Slough/Fibrin Yes No -Necrosis Amt Large (67-100%) Large (67-100%) None Present (0 %) -Necrotic Tissue Type Adherent Slough Eschar -Structure Exposed N/A -Texture (Mariza-wound Skin Appearance) Assessed Assessed Assessed -Moisture (Mariza-wound Skin Appearance) Assessed Assessed Assessed -Color (Mariza-wound Skin Appearance) Assessed Assessed Assessed -Temperature (Mariza-wound Skin No Abnormality No Abnormality No Abnormality Appearance) (Pt Warm) (Pt Warm) (Pt Warm) -Tenderness on Palpation (Mariza-wound No Skin Appearance) -Ulcer Cleansing Wound Cleanser Soap and Water Soap and Water -Foul Odor after Cleansing No No -Anesthetic Used 5% Lidocaine 5% Lidocaine 5% Lidocaine Gel Gel Gel -Wound Comment(s) scabbed over #5 RT LAT LE POST-OP -Combined with other wound No -Current Size (cm) - Length 18.7 19.2 0.1 -Current Size (cm) - Width 5.5 6 0.1 -Current Size (cm) - Depth 0.1 0.1 0.1 -Total Square Cm 102.85 115.2 0.01 -Photo Taken Yes No -Epithelialization None Present -Tunneling No No -Undermining/Tunneling No No -Circular Undermining No No -Change in Wound Grade/Stage No -Exudate Amt Large Medium Medium -Exudate Type Serosanguineous Serosanguineous Serosanguineous -Wound Margin Distinct, Distinct, Distinct, Outline Outline Outline Attached Attached Attached -Granulation Amt Large (67-100%) Large (67-100%) Large (67-100%) -Granulation Quality [place],Red Red Red -Slough/Fibrin Yes No -Necrosis Amt Small (1-33%) Small (1-33%) None Present (0 %) -Necrotic Tissue Type Adherent Slough Adherent Slough -Structure Exposed N/A -Texture (Mariza-wound Skin Appearance) Assessed, Assessed Assessed Scarring -Moisture (Mariza-wound Skin Appearance) Dry/Scaly Assessed Assessed -Color (Mariza-wound Skin Appearance) Assessed Assessed, Assessed Hemosiderin Staining -Temperature (Mariza-wound Skin No Abnormality No Abnormality No Abnormality Appearance) (Pt Warm) (Pt Warm) (Pt Warm) -Tenderness on Palpation (Mariza-wound No No Skin Appearance) -Ulcer Cleansing Wound Cleanser Soap and Water Soap and Water -Foul Odor after Cleansing No No No -Anesthetic Used 4% Lidocaine 4% Lidocaine 4% Lidocaine Solution Solution Solution 06/07/24 08:53 Wound Center Nurse 1 #7 LT HEEL -Combined with other wound -Current Size (cm) - Length 0.1 -Current Size (cm) - Width 0.1 -Current Size (cm) - Depth 0.1 -Total Square Cm 0.01 -Photo Taken No -Epithelialization Large 67-100% -Tunneling No -Undermining/Tunneling No -Circular Undermining No -Exudate Amt None Present -Exudate Type -Wound Margin Flat & Intact -Granulation Amt Large (67-100%) -Granulation Quality Pale,[place] -Slough/Fibrin No -Necrosis Amt -Necrotic Tissue Type -Structure Exposed -Texture (Mariza-wound Skin Appearance) Assessed -Moisture (Mariza-wound Skin Appearance) Assessed -Color (Mariza-wound Skin Appearance) Assessed -Temperature (Mariza-wound Skin No Abnormality Appearance) (Pt Warm) -Tenderness on Palpation (Mariza-wound No Skin Appearance) -Ulcer Cleansing Soap and Water -Foul Odor after Cleansing No -Anesthetic Used 4% Lidocaine Solution -Wound Comment(s) #5 RT LAT LE POST-OP -Combined with other wound -Current Size (cm) - Length 17 -Current Size (cm) - Width 5.9 -Current Size (cm) - Depth 0.1 -Total Square Cm 100.3 -Photo Taken -Epithelialization -Tunneling -Undermining/Tunneling -Circular Undermining -Change in Wound Grade/Stage -Exudate Amt -Exudate Type -Wound Margin -Granulation Amt -Granulation Quality -Slough/Fibrin -Necrosis Amt -Necrotic Tissue Type -Structure Exposed -Texture (Mariza-wound Skin Appearance) -Moisture (Mariza-wound Skin Appearance) -Color (Mariza-wound Skin Appearance) -Temperature (Mariza-wound Skin Appearance) -Tenderness on Palpation (Marzia-wound Skin Appearance) -Ulcer Cleansing -Foul Odor after Cleansing -Anesthetic Used WC - Nurse 2 - General Ulcer CM Notes Start: 05/16/24 08:29 Freq: Status: Active Protocol: Activity Type Activity Date Activity User E-sign Co-sign Detail Recorded Client Recorded Date Recorded By Document 05/16/24 08:53 [id number] 05/16/24 09:00 Document 05/24/24 09:03 [id number] 05/24/24 09:13 Document 05/31/24 09:20 [id number] 05/31/24 09:35 Document 06/07/24 09:16 [id number] 06/07/24 09:23 05/16/24 05/24/24 05/31/24 08:53 09:03 09:20 Wound Center Nurse 2 #7 LT HEEL -Time 08:58 09:07 09:27 -Correct Patient Yes Yes Yes -Correct Side, Site, Position Yes Yes Yes -Correct Procedure Yes Yes Yes -Procedure Performed Yes Yes Yes -Type of Procedure Debridement Debridement Debridement -Clinical Debridement Subcutaneous Subcutaneous Subcutaneous -Tissue Removed Subcutaneous Subcutaneous Subcutaneous -Post Debridement (cm) - Length 1.2 1.0 0.8 -Post Debridement (cm) - Width 1.2 1.2 0.9 -Post Debridement (cm) - Depth 0.4 0.2 0.2 -Total Square (Post) (cm) 1.44 1.20 0.72 -Area of Debridement (cm) - Length 1.2 1.0 0.8 -Area of Debridement (cm) - Width 1.2 1.2 0.9 -Total Square (Area) (cm) 1.44 1.20 0.72 -Tunneling No No No -Undermining/Tunneling No No No -Circular Undermining No No No -Wound/Ulcer Outcome Not Healed Not Healed Not Healed -Ulcer Cleansing Rinsed/ Rinsed/ Rinsed/ Irrigated with Irrigated with Irrigated with Saline Saline Saline -Foul Odor after Cleansing No No No -Bioengineered Tissue Yes Yes Yes -Type of Bioengineered Tissue Epifix 18mm Epifix 18mm Epifix 18mm Disc Disc Disc -Expiration Date 12/10/28 10/10/28 12/10/28 -Product Lot Number [id number] -Percent Used 100 100 100 -Lot number of Saline Used [id number] -Bleeding Controlled with Pressure Pressure Pressure -Treatment Response Procedure Procedure Procedure Tolerated Well Tolerated Well Tolerated Well -Offloading No No No -Debridement - Subq, 1st 20sq cm No No No -Apply Skin Sub - 1st 25 sq cm - Feet 1 1 1 -Epifix (per sq cm) 4 -Epifix 18mm Disc 3 3 #5 RT LAT LE POST-OP -Time 09:00 09:03 09:21 -Correct Patient Yes Yes Yes -Correct Side, Site, Position Yes Yes Yes -Correct Procedure Yes Yes Yes -Procedure Performed Yes Yes Yes -Type of Procedure Debridement Debridement Debridement -Clinical Debridement Subcutaneous Subcutaneous Subcutaneous -Tissue Removed Subcutaneous Subcutaneous Subcutaneous -Post Debridement (cm) - Length 19 19.7 19.4 -Post Debridement (cm) - Width 4 6.2 5.2 -Post Debridement (cm) - Depth 0.2 0.1 0.1 -Total Square (Post) (cm) 76 122.14 100.88 -Area of Debridement (cm) - Length 19 19.7 19.4 -Area of Debridement (cm) - Width 4 6.2 5.2 -Total Square (Area) (cm) 76 122.14 100.88 -Tunneling No No No -Undermining/Tunneling No No No -Circular Undermining No No No -Wound/Ulcer Outcome Not Healed Not Healed Not Healed -Ulcer Cleansing Rinsed/ Rinsed/ Rinsed/ Irrigated with Irrigated with Irrigated with Saline Saline Saline -Foul Odor after Cleansing No No No -Bioengineered Tissue No No No -Bleeding Controlled with Pressure Pressure Pressure -Treatment Response Procedure Procedure Procedure Tolerated Well Tolerated Well Tolerated Well -Offloading No No No -Debridement - Subq, 1st 20sq cm Yes Yes Yes -Debridement, SubQ, ea addt'l 20sq cm 3 6 5 or part thereof Pain Scale: 0-10 Numeric Is Patient Pain Free? Yes Yes Yes 06/07/24 09:16 Wound Center Nurse 2 #7 LT HEEL -Time 09:22 -Correct Patient Yes -Correct Side, Site, Position Yes -Correct Procedure Yes -Procedure Performed Yes -Type of Procedure Debridement -Clinical Debridement Subcutaneous -Tissue Removed Subcutaneous -Post Debridement (cm) - Length 0.7 -Post Debridement (cm) - Width 0.6 -Post Debridement (cm) - Depth 0.1 -Total Square (Post) (cm) 0.42 -Area of Debridement (cm) - Length 0.7 -Area of Debridement (cm) - Width 0.6 -Total Square (Area) (cm) 0.42 -Tunneling No -Undermining/Tunneling No -Circular Undermining No -Wound/Ulcer Outcome Not Healed -Ulcer Cleansing Rinsed/ Irrigated with Saline -Foul Odor after Cleansing No -Bioengineered Tissue Yes -Type of Bioengineered Tissue Epifix 18mm Disc -Expiration Date 12/10/28 -Product Lot Number [id number] -Percent Used 100 -Lot number of Saline Used [id number] -Bleeding Controlled with Pressure -Treatment Response Procedure Tolerated Well -Offloading No -Debridement - Subq, 1st 20sq cm No -Apply Skin Sub - 1st 25 sq cm - Feet 1 -Epifix (per sq cm) -Epifix 18mm Disc 3 #5 RT LAT LE POST-OP -Time -Correct Patient No -Correct Side, Site, Position No -Correct Procedure No -Procedure Performed No -Type of Procedure -Clinical Debridement -Tissue Removed -Post Debridement (cm) - Length -Post Debridement (cm) - Width -Post Debridement (cm) - Depth -Total Square (Post) (cm) -Area of Debridement (cm) - Length -Area of Debridement (cm) - Width -Total Square (Area) (cm) -Tunneling -Undermining/Tunneling -Circular Undermining -Wound/Ulcer Outcome Not Healed -Ulcer Cleansing -Foul Odor after Cleansing -Bioengineered Tissue -Bleeding Controlled with Pressure -Treatment Response -Offloading -Debridement - Subq, 1st 20sq cm No -Debridement, SubQ, ea addt'l 20sq cm or part thereof Pain Scale: 0-10 Numeric Is Patient Pain Free? Yes - Nurse 3 - General Ulcer D/C NN Start: 05/16/24 08:29 Freq: Status: Active Protocol: Activity Type Activity Date Activity User E-sign Co-sign Detail Recorded Client Recorded Date Recorded By Document 05/16/24 09:08 KW [id number] 05/16/24 09:09 KW Document 05/24/24 09:30 GM [id number] 05/24/24 09:31 GM Document 05/31/24 09:53 KW [id number] 05/31/24 09:54 KW Document 06/07/24 09:43 KW [id number] 06/07/24 09:45 KW 05/16/24 05/24/24 05/31/24 09:08 09:30 09:53 Wound Care Center Nurse 3 #7 LT HEEL -Ulcer Cleansing Not Cleansed Not Cleansed -Foul Odor after Cleansing No No -Primary Dressing Applied -Other Dressing -Primary Dressing Covered/Secured with Dry Gauze & Dry Gauze,Dry Dry Gauze & Roll Gauze, Gauze & Roll Roll Gauze, Secured with Gauze,Secured Secured with Tape with Tape Tape #5 RT LAT LE POST-OP -Ulcer Cleansing Not Cleansed Not Cleansed -Foul Odor after Cleansing No No -Primary Dressing Applied Fibracol Plus Fibracol Plus Fibracol Plus 4x4 4x4 4x4 -Other Dressing -Primary Dressing Covered/Secured with Dry Gauze & Dry Gauze & Dry Gauze,Dry Roll Gauze, Roll Gauze, Gauze & Roll Secured with Secured with Gauze,Secured Tape Tape with Tape -Fibracol Plus 4x4 1 1 1 Right -Lotion applied to leg before No compression wrap -Compression Wrap Celso Wrap Celso Wrap Celso Wrap Left -Lotion applied to leg before No compression wrap -Compression Wrap Celso Wrap Celso Wrap Celso Wrap Treatment Response Pain Scale: 0-10 Numeric Is Patient Pain Free? Yes Yes Yes - Visit Discharge Discharge Condition Stable Stable Ambulatory Status Ambulatory Ambulatory Transportation Private Auto Private Auto Medication Reconcilliation completed & provided to patient/care provider Clinical Summary of Care Provided 06/07/24 09:43 Wound Care Center Nurse 3 #7 LT HEEL -Ulcer Cleansing -Foul Odor after Cleansing -Primary Dressing Applied NonAdherent Contact Layer -Other Dressing kerlix, undercasting, celso -Primary Dressing Covered/Secured with Secured with Tape #5 RT LAT LE POST-OP -Ulcer Cleansing -Foul Odor after Cleansing -Primary Dressing Applied NonAdherent Contact Layer -Other Dressing kerlix, undercasting, celso -Primary Dressing Covered/Secured with Dry Gauze & Roll Gauze, Secured with Tape -Fibracol Plus 4x4 Right -Lotion applied to leg before compression wrap -Compression Wrap Left -Lotion applied to leg before compression wrap -Compression Wrap Treatment Response Procedure Tolerated Well Pain Scale: 0-10 Numeric Is Patient Pain Free? Yes WC - Visit Discharge Discharge Condition Stable Ambulatory Status Ambulatory Transportation Private Auto Medication Reconcilliation completed & No provided to patient/care provider Clinical Summary of Care Provided Yes Assessment/Plan Assessment/Plan (1) Non-pressure chronic ulcer of left heel and 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: CODE(S): L97.422 - Non-pressure chronic ulcer of left heel and 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 PLAN: Patient was examined and evaluated. All findings were discussed with the patient. All questions were answered to the patient's satisfaction. Excisional debridement of the left heel dry eschar down to including subcutaneous tissue with a number 3 mm dermal curette without incident. Predebridement measurement was sanguinous crust. postdebridement measurement is 0.7 x 0.6 x 0.2 cm. EpiFix 18 mm disc was applied to the left full-thickness ulceration with 100% use. Sixth application. The graft site was free and clear of any infection. The wound/skin graft substitute was dressed with nonadherent bandage secured in place with Steri-Strips followed by bolster dressing as well as a Celso wrap. Bilateral compression wraps were applied to the bilateral lower extremity. Orders were given to leave the dressing clean dry and intact and not to remove. Patient continue strict blood sugar control. Follow-up at the wound care center with Dr. Shannon in 1 week. (2) Non-pressure chronic ulcer of other part of right lower leg with fat layer exposed: CODE(S): L97.812 - Non-pressure chronic ulcer of other part of right lower leg with fat layer exposed
== END 2024-06-10 23:59 | disposition home or self-care (01) ==
LOC: WC 08:45
PROVIDERS: Referring Provider Surgery; Visit Provider Podiatrist Foot & Ankle Surgery
DX: E11.622 Type 2 diabetes mellitus with other skin ulcer (principal); L97.812 Non-pressure chronic ulcer of other part of right lower leg with fat layer exposed; L97.422 Non-pressure chronic ulcer of left heel and 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; E66.01 Morbid (severe) obesity due to excess calories; I73.89 Other specified peripheral vascular diseases; Z99.89 Dependence on other enabling machines and devices; Z86.718 Personal history of other venous thrombosis and embolism
CPT/HCPCS: 11042; 11045; 15275; Q4186

== ENCOUNTER 2024-07-11 08:30 | Outpatient (RCR) | payer MEDICARE, SELFPAY ==
[2024-06-11 00:42] VITALS: BP 167/86; PULSE 60; RESP 16; TEMP 36.2; BMI 44.6
[2024-06-14 10:16] VITALS: BP 147/61; PULSE 63; RESP 18; TEMP 36.3; BMI 44.6
--- NOTE | 2024-06-14 11:42 | PCM.WC.PN ---
History of Present Illness Date of Service: 06/14/24 Chief Complaint: Right buttock ulceration History of Wound: This is a 68-year-old morbidly obese diabetic male who sees Dr. Shannon for 3 large ulcerations on the right lateral calf. He is a resident of [facility] in [place], [place]. He has a history of bilateral lower extremity deep vein thrombosis, and a venous duplex examination performed on October 22, 2023, revealed chronic changes in the right lower extremity deep venous system, with a normal superficial venous system. Management of the patient's wound had been by means of the care home [facility], Dr. Reyna, from [place], [place]. Approximately 1 week prior to presentation, the patient underwent placement of a left upper extremity PICC catheter and has been receiving vancomycin and Zosyn intravenously. The patient had been on chronic systemic anticoagulation with Eliquis until recently, which was discontinued as a result of his recent gastrointestinal bleeding. He developed a right buttocks (ischial area) pressure sore over the past month. He denies sleeping on low air loss mattress because he is unable to move it the bed and he finds it very difficult to move and to breath. He wears CPAP at night that he states he must sleep on his back when wearing. He admits to sitting for long periods of time in his wheel chair. He sits on a cushion and a pillow. He states they have been putting a barrier cream on the area and he believes it is making it worse. He states it is painful to touch and to sit on. Subjective Subjective Mr. Gutierrez is a 69-year-old diabetic male presenting to wound care center today for follow-up evaluation of status post surgical skin graft site prep with application of skin graft substitute with right lower extremity and amniotic skin graft substitute to the left heel. Patient has been compliant with dressing changes at the [facility] facility. Blood sugars well-controlled. Denies trauma. Denies constitutional symptoms. No other pedal complaints at this time. Objective Data Objective Data Vital Signs: Vital Signs Temp Pulse Resp BP O2 Del Method 97.4 F L 63 18 147/61 H Room Air 06/14/24 10:16 06/14/24 10:16 06/14/24 10:16 06/14/24 10:16 06/14/24 10:16 Oxygen Delivery Method Room Air Weight: 157.85 kg Body Mass Index (BMI) 44.6 Physical Exam Narrative Vascular: DP and PT pulses are palpable to the right lower extremity. Nonpitting edema appreciated to the right lower extremity. Skin temperature gradient is warm to warm from proximal ankles to distal digit. No focal increase appreciated. Neurological: Light touch intact. Patient response to painful stimuli. Protective sensation is diminished. Dermatological: Full-thickness ulceration to the lateral aspect of the right leg measuring 20.5 x 5.0 x 0.1 cm. Wound base is granular. No malodor or probe to bone. No sign of infection. Full-thickness ulceration appreciated to the left heel measuring 0.5 x 0.6 x 0.2 cm. Wound base is granular nature. Excisional debridement of the right leg lateral aspect full-thickness ulceration down to and including subcutaneous tissue with a number 7 mm dermal curette without incident. Predebridement measurement was 20.0 x 4.8 x 0.1 cm. Postdebridement measurement was 20.5 x 5.0 x 0.1 cm. Excisional debridement of the left heel dry eschar down to including subcutaneous tissue with a number 3 mm dermal curette without incident. Predebridement measurement was sanguinous crust. postdebridement measurement is 0.5 x 0.6 x 0.2 cm. EpiFix 18 mm disc was applied to the left full-thickness ulceration with 100% use. Seventh application. The graft site was free and clear of any infection. The wound/skin graft substitute was dressed with nonadherent bandage secured in place with Steri-Strips followed by bolster dressing as well as a Celso wrap. Musculoskeletal: Mild pain to palpation to full-thickness ulceration. No pain with calf compression. Debridement Note Debridement Note Debridement Free Text: Excisional debridement of the right leg lateral aspect full-thickness ulceration down to and including subcutaneous tissue with a number 7 mm dermal curette without incident. Predebridement measurement was 20.0 x 4.8 x 0.1 cm. Postdebridement measurement was 20.5 x 5.0 x 0.1 cm. Excisional debridement of the left heel dry eschar down to including subcutaneous tissue with a number 3 mm dermal curette without incident. Predebridement measurement was sanguinous crust. postdebridement measurement is 0.5 x 0.6 x 0.2 cm. EpiFix 18 mm disc was applied to the left full-thickness ulceration with 100% use. Seventh application. The graft site was free and clear of any infection. The wound/skin graft substitute was dressed with nonadherent bandage secured in place with Steri-Strips followed by bolster dressing as well as a Celso wrap. 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 PRO[employer] MANAGER ) Arrival Mode Ambulatory Patient Identification Verified (Name & Yes ) Height and Weight Body Mass Index (BMI) 44.6 BMI Classification Obese Vital Signs Temperature (97.8 F-99.1 F) 97.4 F L Temperature Source Temporal Pulse Rate (60-100) 63 Pulse Location Monitor Respiratory Rate (12-18) 18 Respiratory rate source Observation Oxygen Delivery Method Room Air Blood Pressure (90/60-120/80) 147/61 H Blood Pressure Mean (mm Hg) 89 Source Monitor Position Semi-Fowlers Blood Pressure Location Left Forearm History Since Last Visit- (Skip if this is Patient's initial visit) Have you changed medications since your No last visit? Any new allergies or adverse reactions No Had a fall/change in ADL's that may No increase risk of falls Signs or symptoms of abuse and/or No neglect since last visit Have you been in the hospital since your No last visit? Has dressing in place as prescribed Yes Has compression in place as prescribed Yes Has offloadiing in place as prescribed N/A Experienced any changes in pain level or No management Left Footwear Regular Shoe Right Footwear Regular Shoe Pain Scale: 0-10 Numeric Is Patient Pain Free? No RLE -Description Burning -Alleviating Factors/Interventions Medication, Inactivity/ Resting,Turning /Repositioning WC - Nurse 1 - General Ulcer Measurement Start: 06/14/24 10:16 Freq: Status: Active Protocol: Activity Type Activity Date Activity User E-sign Co-sign Detail Recorded Client Recorded Date Recorded By Document 06/14/24 10:16 HANNAH [id number] 06/14/24 10:36 KW 06/14/24 10:16 Wound Center Nurse 1 #7 LT HEEL -Current Size (cm) - Length 0.1 -Current Size (cm) - Width 0.1 -Current Size (cm) - Depth 0.1 -Total Square Cm 0.01 -Date of Last Picture (Recall this 06/14/24 field) -Photo Taken Yes -Exudate Amt None Present -Granulation Amt None Present (0 %) -Necrosis Amt Large (67-100%) -Necrotic Tissue Type Eschar -Texture (Mariza-wound Skin Appearance) Assessed -Moisture (Mariza-wound Skin Appearance) Assessed,Dry/ Scaly -Color (Mariza-wound Skin Appearance) Assessed -Temperature (Mariza-wound Skin No Abnormality Appearance) (Pt Warm) -Tenderness on Palpation (Mariza-wound No Skin Appearance) -Ulcer Cleansing Soap and Water -Foul Odor after Cleansing No -Anesthetic Used 5% Lidocaine Gel #5 RT LAT LE POST-OP -Current Size (cm) - Length 20.5 -Current Size (cm) - Width 4.8 -Current Size (cm) - Depth 0.1 -Total Square Cm 98.40 -Date of Last Picture (Recall this 06/14/24 field) -Photo Taken Yes -Epithelialization Small 1-33% -Exudate Amt Large -Exudate Type Yellow/Green -Wound Margin Distinct, Outline Attached -Granulation Amt Small (1-33%) -Granulation Quality Red -Necrosis Amt Large (67-100%) -Necrotic Tissue Type Adherent Slough -Texture (Mariza-wound Skin Appearance) Assessed -Moisture (Mariza-wound Skin Appearance) Assessed,Dry/ Scaly -Color (Mariza-wound Skin Appearance) Assessed, Hemosiderin Staining -Temperature (Mariza-wound Skin No Abnormality Appearance) (Pt Warm) -Tenderness on Palpation (Mariza-wound No Skin Appearance) -Ulcer Cleansing Soap and Water -Foul Odor after Cleansing No WC - Nurse 2 - General Ulcer CM Notes Start: 06/14/24 10:16 Freq: Status: Active Protocol: Activity Type Activity Date Activity User E-sign Co-sign Detail Recorded Client Recorded Date Recorded By Document 06/14/24 10:49 TALI [id number] 06/14/24 10:59 TALI 06/14/24 10:49 Wound Center Nurse 2 #7 LT HEEL -Time 10:52 -Correct Patient Yes -Correct Side, Site, Position Yes -Correct Procedure Yes -Procedure Performed Yes -Type of Procedure Debridement -Clinical Debridement Subcutaneous -Tissue Removed Subcutaneous -Post Debridement (cm) - Length 0.5 -Post Debridement (cm) - Width 0.6 -Post Debridement (cm) - Depth 0.2 -Total Square (Post) (cm) 0.30 -Area of Debridement (cm) - Length 0.5 -Area of Debridement (cm) - Width 0.6 -Total Square (Area) (cm) 0.30 -Tunneling No -Undermining/Tunneling No -Circular Undermining No -Wound/Ulcer Outcome Not Healed -Ulcer Cleansing Rinsed/ Irrigated with Saline -Foul Odor after Cleansing No -Bioengineered Tissue Yes -Type of Bioengineered Tissue Epifix 18mm Disc -Expiration Date 12/10/28 -Product Lot Number [id number] -Percent Used 100 -Lot number of Saline Used [id number] -Bleeding Controlled with Pressure -Treatment Response Procedure Tolerated Well -Offloading No -Debridement - Subq, 1st 20sq cm No -Apply Skin Sub - 1st 25 sq cm - Feet 1 -Epifix 18mm Disc 3 #5 RT LAT LE POST-OP -Time 10:49 -Correct Patient Yes -Correct Side, Site, Position Yes -Correct Procedure Yes -Procedure Performed Yes -Type of Procedure Debridement -Clinical Debridement Subcutaneous -Tissue Removed Subcutaneous -Post Debridement (cm) - Length 20.5 -Post Debridement (cm) - Width 5 -Post Debridement (cm) - Depth 0.1 -Total Square (Post) (cm) 102.5 -Area of Debridement (cm) - Length 20.5 -Area of Debridement (cm) - Width 5 -Total Square (Area) (cm) 102.5 -Tunneling No -Undermining/Tunneling No -Circular Undermining No -Wound/Ulcer Outcome Not Healed -Ulcer Cleansing Rinsed/ Irrigated with Saline -Foul Odor after Cleansing No -Bioengineered Tissue No -Bleeding Controlled with Pressure -Treatment Response Procedure Tolerated Well -Offloading No -Debridement - Subq, 1st 20sq cm Yes -Debridement, SubQ, ea addt'l 20sq cm 5 or part thereof Pain Scale: 0-10 Numeric Is Patient Pain Free? Yes - Nurse 3 - General Ulcer D/C NN Start: 06/14/24 10:16 Freq: Status: Active Protocol: Activity Type Activity Date Activity User E-sign Co-sign Detail Recorded Client Recorded Date Recorded By Document 06/14/24 11:21 HANNAH [id number] 06/14/24 11:23 KW 06/14/24 11:21 Wound Care Center Nurse 3 #7 LT HEEL -Primary Dressing Covered/Secured with Dry Gauze & Roll Gauze, Secured with Tape #5 RT LAT LE POST-OP -Primary Dressing Applied Fibracol Plus 4x4 -Primary Dressing Covered/Secured with Dry Gauze & Roll Gauze, Secured with Tape -Fibracol Plus 4x4 2 BLE -Compression Wrap Celso Wrap Pain Scale: 0-10 Numeric Is Patient Pain Free? Yes WC - Visit Discharge Discharge Condition Stable Ambulatory Status Ambulatory Transportation [facility] Medication Reconcilliation completed & No provided to patient/care provider Clinical Summary of Care Provided Yes Assessment/Plan Assessment/Plan (1) Non-pressure chronic ulcer of right heel and 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: CODE(S): L97.412 - Non-pressure chronic ulcer of right heel and 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 PLAN: Patient was examined and evaluated. All findings were discussed with the patient. All questions were answered to the patient's satisfaction. Excisional debridement of the right leg lateral aspect full-thickness ulceration down to and including subcutaneous tissue with a number 7 mm dermal curette without incident. Predebridement measurement was 20.0 x 4.8 x 0.1 cm. Postdebridement measurement was 20.5 x 5.0 x 0.1 cm. Excisional debridement of the left heel dry eschar down to including subcutaneous tissue with a number 3 mm dermal curette without incident. Predebridement measurement was sanguinous crust. postdebridement measurement is 0.5 x 0.6 x 0.2 cm. EpiFix 18 mm disc was applied to the left full-thickness ulceration with 100% use. Seventh application. The graft site was free and clear of any infection. The wound/skin graft substitute was dressed with nonadherent bandage secured in place with Steri-Strips followed by bolster dressing as well as a Celso wrap. Right lower extremities were cleaned and patted dry. The full-thickness wound was dressed with fibrocal, dry sterile dressing and multilayer compression bandage to right lower extremity. Orders were given for the care home to change to the collagen and dressing every other day. Continued to educate the patient on strict blood sugar control. Follow-up at the wound care center with Dr. Shannon in 1 week. (2) Non-pressure chronic ulcer of left heel and 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: CODE(S): L97.422 - Non-pressure chronic ulcer of left heel and 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
--- NOTE | 2024-06-16 10:50 | WC ---
PHOTO 06/14/24 LEFT HEEL
--- NOTE | 2024-06-16 10:59 | WC ---
PHOTO 06/14/24 RIGHT LATERAL LE POST OP
[2024-06-21 09:40] VITALS: BP 136/84; PULSE 60; RESP 16; TEMP 35.7; BMI 44.6
--- NOTE | 2024-06-21 10:06 | PCM.WC.PN ---
History of Present Illness Date of Service: 06/21/24 Chief Complaint: Right buttock ulceration History of Wound: This is a 68-year-old morbidly obese diabetic male who sees Dr. Shannon for 3 large ulcerations on the right lateral calf. He is a resident of [facility] in [place], [place]. He has a history of bilateral lower extremity deep vein thrombosis, and a venous duplex examination performed on October 22, 2023, revealed chronic changes in the right lower extremity deep venous system, with a normal superficial venous system. Management of the patient's wound had been by means of the longterm Relationship Counselor, Dr. Reyna, from [place], [place]. Approximately 1 week prior to presentation, the patient underwent placement of a left upper extremity PICC catheter and has been receiving vancomycin and Zosyn intravenously. The patient had been on chronic systemic anticoagulation with Eliquis until recently, which was discontinued as a result of his recent gastrointestinal bleeding. He developed a right buttocks (ischial area) pressure sore over the past month. He denies sleeping on low air loss mattress because he is unable to move it the bed and he finds it very difficult to move and to breath. He wears CPAP at night that he states he must sleep on his back when wearing. He admits to sitting for long periods of time in his wheel chair. He sits on a cushion and a pillow. He states they have been putting a barrier cream on the area and he believes it is making it worse. He states it is painful to touch and to sit on. Subjective Subjective Mr. Gutierrez is a six 9-year-old diabetic male presenting to wound care send a follow-up evaluation of right leg full-thickness wound and right heel full-thickness wound with graft application. Patient has been getting dressing changes to right lower extremity as written. He did state that they are not washing his leg with every dressing change and will make sure orders are given to do that. The graft has been left clean dry and intact to the left heel. It is doing well. His blood sugars well-controlled. Denies trauma. Denies constitutional symptoms. No other pedal complaints at this time. Objective Data Objective Data Vital Signs: Vital Signs Temp Pulse Resp BP O2 Del Method 96.2 F L 60 16 136/84 H Room Air 06/21/24 09:40 06/21/24 09:40 06/21/24 09:40 06/21/24 09:40 06/21/24 09:40 Oxygen Delivery Method Room Air Weight: 157.85 kg Body Mass Index (BMI) 44.6 Physical Exam Narrative Vascular: DP and PT pulses are palpable to the right lower extremity. Nonpitting edema appreciated to the right lower extremity. Skin temperature gradient is warm to warm from proximal ankles to distal digit. No focal increase appreciated. Neurological: Light touch intact. Patient response to painful stimuli. Protective sensation is diminished. Dermatological: Full-thickness ulceration to the lateral aspect of the right leg measuring 19.5 x 5.0 x 0.1 cm. wound base is granular. No malodor or probe to bone. No sign of infection. Full-thickness ulceration appreciated to the left heel measuring 0.4 x 0.3 x 0.1 cm. Wound base is granular nature. Excisional debridement of the right leg lateral aspect full-thickness ulceration down to and including subcutaneous tissue with a number 7 mm dermal curette without incident. Predebridement measurement was 19.0 x 4.8 x 0.1 cm. Postdebridement measurement was 19.5 x 5.0 x 0.1 cm. Excisional debridement of the left heel dry eschar down to including subcutaneous tissue with a number 3 mm dermal curette without incident. Predebridement measurement was sanguinous crust. postdebridement measurement is 0.4 x 0.3 x 0.1 cm. EpiFix 18 mm disc was applied to the left full-thickness ulceration with 100% use. Eighth application. The graft site was free and clear of any infection. The wound/skin graft substitute was dressed with nonadherent bandage secured in place with Steri-Strips followed by bolster dressing as well as a Celso wrap. Musculoskeletal: Mild pain to palpation to full-thickness ulceration. No pain with calf compression. Debridement Note Debridement Note Debridement Free Text: Excisional debridement of the right leg lateral aspect full-thickness ulceration down to and including subcutaneous tissue with a number 7 mm dermal curette without incident. Predebridement measurement was 19.0 x 4.8 x 0.1 cm. Postdebridement measurement was 19.5 x 5.0 x 0.1 cm. Excisional debridement of the left heel dry eschar down to including subcutaneous tissue with a number 3 mm dermal curette without incident. Predebridement measurement was sanguinous crust. postdebridement measurement is 0.4 x 0.3 x 0.1 cm. EpiFix 18 mm disc was applied to the left full-thickness ulceration with 100% use. Eighth application. The graft site was free and clear of any infection. The wound/skin graft substitute was dressed with nonadherent bandage secured in place with Steri-Strips followed by bolster dressing as well as a Celso wrap. Post-Debridement Measurements and Additional Note: Post-Debridement Measurements/Treatment - Nurse 1 - General Ulcer Assessment Start: 06/14/24 10:16 Freq: Status: Active Protocol: CODY.LOWEXT Activity Type Activity Date Activity User E-sign Co-sign Detail Recorded Client Recorded Date Recorded By Document 06/14/24 10:16 KW [id number] 06/14/24 10:36 KW Document 06/21/24 09:40 CP [id number] 06/21/24 09:45 CP 06/14/24 06/21/24 10:16 09:40 - Today's Visit Information Type of service Follow-up Visit Follow-up Visit (Physician/MEDICAL LAB TECHNOLOGIST (Physician/MEDICAL LAB TECHNOLOGIST ) ) Arrival Mode Ambulatory Ambulatory Patient Identification Verified (Name & Yes Yes ) Height and Weight Body Mass Index (BMI) 44.6 44.6 BMI Classification Obese Obese Vital Signs Temperature (97.8 F-99.1 F) 97.4 F L 96.2 F L Temperature Source Temporal Temporal Pulse Rate (60-100) 63 60 Pulse Location Monitor Monitor Respiratory Rate (12-18) 18 16 Respiratory rate source Observation Observation Oxygen Delivery Method Room Air Room Air Blood Pressure (90/60-120/80) 147/61 H 136/84 H Blood Pressure Mean (mm Hg) 89 101 Source Monitor Monitor Position Semi-Fowlers Sitting Blood Pressure Location Left Forearm Left Forearm History Since Last Visit- (Skip if this is Patient's initial visit) Have you changed medications since your No No last visit? Any new allergies or adverse reactions No No Had a fall/change in ADL's that may No No increase risk of falls Signs or symptoms of abuse and/or No No neglect since last visit Have you been in the hospital since your No No last visit? Has dressing in place as prescribed Yes Yes Has compression in place as prescribed Yes Yes Has offloadiing in place as prescribed N/A N/A Experienced any changes in pain level or No No management Left Footwear Regular Shoe Regular Shoe Right Footwear Regular Shoe Regular Shoe Pain Scale: 0-10 Numeric Is Patient Pain Free? No Yes RLE -Description Burning -Alleviating Factors/Interventions Medication, Inactivity/ Resting,Turning /Repositioning WC - Nurse 1 - General Ulcer Measurement Start: 06/14/24 10:16 Freq: Status: Active Protocol: Activity Type Activity Date Activity User E-sign Co-sign Detail Recorded Client Recorded Date Recorded By Document 06/14/24 10:16 KW [id number] 06/14/24 10:36 KW Document 06/21/24 09:40 CP [id number] 06/21/24 09:45 CP 06/14/24 06/21/24 10:16 09:40 Wound Center Nurse 1 #7 LT HEEL -Current Size (cm) - Length 0.1 0.1 -Current Size (cm) - Width 0.1 0.1 -Current Size (cm) - Depth 0.1 0.1 -Total Square Cm 0.01 0.01 -Date of Last Picture (Recall this 06/14/24 field) -Photo Taken Yes -Exudate Amt None Present None Present -Granulation Amt None Present (0 %) -Slough/Fibrin Yes -Necrosis Amt Large (67-100%) Large (67-100%) -Necrotic Tissue Type Eschar Eschar -Texture (Mariza-wound Skin Appearance) Assessed No Abnormality -Moisture (Mariza-wound Skin Appearance) Assessed,Dry/ No Abnormality Scaly -Color (Mariza-wound Skin Appearance) Assessed No Abnormality -Temperature (Mariza-wound Skin No Abnormality No Abnormality Appearance) (Pt Warm) (Pt Warm) -Tenderness on Palpation (Mariza-wound No No Skin Appearance) -Ulcer Cleansing Soap and Water Rinsed/ Irrigated with Saline -Foul Odor after Cleansing No -Anesthetic Used 5% Lidocaine 4% Lidocaine Gel Solution #5 RT LAT LE POST-OP -Current Size (cm) - Length 20.5 20 -Current Size (cm) - Width 4.8 5 -Current Size (cm) - Depth 0.1 0.1 -Total Square Cm 98.40 100 -Date of Last Picture (Recall this 06/14/24 field) -Photo Taken Yes -Epithelialization Small 1-33% -Exudate Amt Large Small -Exudate Type Yellow/Green Serosanguineous -Wound Margin Distinct, Flat & Intact Outline Attached -Granulation Amt Small (1-33%) Large (67-100%) -Granulation Quality Red Red -Slough/Fibrin Yes -Necrosis Amt Large (67-100%) Small (1-33%) -Necrotic Tissue Type Adherent Slough Adherent Slough -Structure Exposed N/A -Texture (Mariza-wound Skin Appearance) Assessed No Abnormality -Moisture (Mariza-wound Skin Appearance) Assessed,Dry/ No Abnormality Scaly -Color (Mariza-wound Skin Appearance) Assessed, No Abnormality Hemosiderin Staining -Temperature (Mariza-wound Skin No Abnormality No Abnormality Appearance) (Pt Warm) (Pt Warm) -Tenderness on Palpation (Mariza-wound No Yes Skin Appearance) -Ulcer Cleansing Soap and Water Soap and Water -Foul Odor after Cleansing No No -Anesthetic Used 4% Lidocaine Solution WC - Nurse 2 - General Ulcer CM Notes Start: 06/14/24 10:16 Freq: Status: Active Protocol: Activity Type Activity Date Activity User E-sign Co-sign Detail Recorded Client Recorded Date Recorded By Document 06/14/24 10:49 [id number] 06/14/24 10:59 Document 06/21/24 09:55 JF [id number] 06/21/24 10:05 06/14/24 06/21/24 10:49 09:55 Wound Center Nurse 2 #7 LT HEEL -Time 10:52 10:00 -Correct Patient Yes Yes -Correct Side, Site, Position Yes Yes -Correct Procedure Yes Yes -Procedure Performed Yes Yes -Type of Procedure Debridement Debridement -Clinical Debridement Subcutaneous Subcutaneous -Tissue Removed Subcutaneous Subcutaneous -Post Debridement (cm) - Length 0.5 0.4 -Post Debridement (cm) - Width 0.6 0.3 -Post Debridement (cm) - Depth 0.2 0.1 -Total Square (Post) (cm) 0.30 0.12 -Area of Debridement (cm) - Length 0.5 0.4 -Area of Debridement (cm) - Width 0.6 0.3 -Total Square (Area) (cm) 0.30 0.12 -Tunneling No No -Undermining/Tunneling No No -Circular Undermining No No -Wound/Ulcer Outcome Not Healed Not Healed -Ulcer Cleansing Rinsed/ Rinsed/ Irrigated with Irrigated with Saline Saline -Foul Odor after Cleansing No No -Bioengineered Tissue Yes Yes -Type of Bioengineered Tissue Epifix 18mm Epifix 18mm Disc Disc -Expiration Date 12/10/28 01/09/29 -Product Lot Number [id number] -Percent Used 100 100 -Lot number of Saline Used [id number] -Bleeding Controlled with Pressure Pressure -Treatment Response Procedure Procedure Tolerated Well Tolerated Well -Offloading No No -Debridement - Subq, 1st 20sq cm No No -Apply Skin Sub - 1st 25 sq cm - Feet 1 1 -Epifix 18mm Disc 3 3 #5 RT LAT LE POST-OP -Time 10:49 09:55 -Correct Patient Yes Yes -Correct Side, Site, Position Yes Yes -Correct Procedure Yes Yes -Procedure Performed Yes Yes -Type of Procedure Debridement Debridement -Clinical Debridement Subcutaneous Subcutaneous -Tissue Removed Subcutaneous Subcutaneous -Post Debridement (cm) - Length 20.5 19.5 -Post Debridement (cm) - Width 5 5 -Post Debridement (cm) - Depth 0.1 0.1 -Total Square (Post) (cm) 102.5 97.5 -Area of Debridement (cm) - Length 20.5 19.5 -Area of Debridement (cm) - Width 5 5 -Total Square (Area) (cm) 102.5 97.5 -Tunneling No No -Undermining/Tunneling No No -Circular Undermining No No -Wound/Ulcer Outcome Not Healed Not Healed -Ulcer Cleansing Rinsed/ Rinsed/ Irrigated with Irrigated with Saline Saline -Foul Odor after Cleansing No No -Bioengineered Tissue No No -Bleeding Controlled with Pressure Pressure -Treatment Response Procedure Procedure Tolerated Well Tolerated Well -Offloading No No -Debridement - Subq, 1st 20sq cm Yes Yes -Debridement, SubQ, ea addt'l 20sq cm 5 4 or part thereof Pain Scale: 0-10 Numeric Is Patient Pain Free? Yes Yes WC - Nurse 3 - General Ulcer D/C NN Start: 06/14/24 10:16 Freq: Status: Active Protocol: Activity Type Activity Date Activity User E-sign Co-sign Detail Recorded Client Recorded Date Recorded By Document 06/14/24 11:21 [id number] 06/14/24 11:23 KW 06/14/24 11:21 Wound Care Center Nurse 3 #7 LT HEEL -Primary Dressing Covered/Secured with Dry Gauze & Roll Gauze, Secured with Tape #5 RT LAT LE POST-OP -Primary Dressing Applied Fibracol Plus 4x4 -Primary Dressing Covered/Secured with Dry Gauze & Roll Gauze, Secured with Tape -Fibracol Plus 4x4 2 BLE -Compression Wrap Celso Wrap Pain Scale: 0-10 Numeric Is Patient Pain Free? Yes WC - Visit Discharge Discharge Condition Stable Ambulatory Status Ambulatory Transportation brenda Medication Reconcilliation completed & No provided to patient/care provider Clinical Summary of Care Provided Yes Assessment/Plan Assessment/Plan (1) Non-pressure chronic ulcer of right heel and 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: CODE(S): L97.412 - Non-pressure chronic ulcer of right heel and 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 PLAN: Patient was examined and evaluated. All findings were discussed with the patient. All questions were answered to the patient's satisfaction. Excisional debridement of the right leg lateral aspect full-thickness ulceration down to and including subcutaneous tissue with a number 7 mm dermal curette without incident. Predebridement measurement was 19.0 x 4.8 x 0.1 cm. Postdebridement measurement was 19.5 x 5.0 x 0.1 cm. Excisional debridement of the left heel dry eschar down to including subcutaneous tissue with a number 3 mm dermal curette without incident. Predebridement measurement was sanguinous crust. postdebridement measurement is 0.4 x 0.3 x 0.1 cm. EpiFix 18 mm disc was applied to the left full-thickness ulceration with 100% use. Eighth application. The graft site was free and clear of any infection. The wound/skin graft substitute was dressed with nonadherent bandage secured in place with Steri-Strips followed by bolster dressing as well as a Celso wrap. Right lower extremities were cleaned and patted dry. The full-thickness wound was dressed with fibrocal, dry sterile dressing and multilayer compression bandage to right lower extremity. Orders were given for the longterm to change to the collagen and dressing every other day. Continued to educate the patient on strict blood sugar control. Follow-up at the wound care center with Dr. Shannon in 1 week. (2) Non-pressure chronic ulcer of left heel and 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: CODE(S): L97.422 - Non-pressure chronic ulcer of left heel and 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
[2024-06-28 09:31] VITALS: BP 144/74; PULSE 61; RESP 18; TEMP 37; BMI 44.6
--- NOTE | 2024-06-28 10:14 | PCM.WC.PN ---
History of Present Illness Date of Service: 06/28/24 Chief Complaint: Right buttock ulceration History of Wound: Patient is 69-year-old male who has chronic ulcerations to the bilateral lower extremity seen wound care center today for continued evaluation. Bilateral wounds are improving with no recurrence of infection. Progress of Wound: Patient is presents for bilateral full-thickness wound to the right lower extremity and left heel. Patient right lower extremity leg is slowly improving. The left heel ulceration is improving as anticipated. No further breakdown or new presence of wounds. Subjective Subjective Mr. Gutierrez is a 69-year-old diabetic male presenting to the wound care center today for follow-up evaluation of bilateral right leg and left heel full-thickness ulcerations. The patient has been compliant with leaving the graft site dressing clean dry and intact to left lower extremity. He is getting every other day dressing changes per orders of the nursing staff. He admits that the nursing staff is not washing his legs with dressing changes and would like us to call the director of solutions architecture at [facility] to discuss. He denies any trauma. Denies constitutional symptoms. No other pedal complaints at this time. Objective Data Objective Data Vital Signs: Vital Signs Temp Pulse Resp BP O2 Del Method 98.6 F 61 18 144/74 H Room Air 06/28/24 09:31 06/28/24 09:31 06/28/24 09:31 06/28/24 09:31 06/28/24 09:31 Oxygen Delivery Method Room Air Weight: 157.85 kg Body Mass Index (BMI) 44.6 Physical Exam Narrative Vascular: DP and PT pulses are palpable to the right lower extremity. Nonpitting edema appreciated to the right lower extremity. Skin temperature gradient is warm to warm from proximal ankles to distal digit. No focal increase appreciated. Evidence of varicosities appreciated left lower extremity. Neurological: Light touch intact. Patient response to painful stimuli. Protective sensation is diminished. Dermatological: Full-thickness ulceration to the lateral aspect of the right leg measuring 19.0 x 4.7 x 0.1 cm. Wound base is granular. No malodor or probe to bone. No sign of infection. Full-thickness ulceration appreciated to the left heel measuring 0.3 x 0.3 x 0.2 cm. Wound base is granular nature. Excisional debridement of the right leg lateral aspect full-thickness ulceration down to and including subcutaneous tissue with a number 7 mm dermal curette without incident. Predebridement measurement was 18.7 x 4.5 x 0.1 cm. Postdebridement measurement was 19.0 x 4.7 x 0.1 cm. Excisional debridement of the left heel dry eschar down to including subcutaneous tissue with a number 3 mm dermal curette without incident. Predebridement measurement was sanguinous crust. postdebridement measurement is 0.3 x 0.3 x 0.1 cm. EpiFix 18 mm disc was applied to the left full-thickness ulceration with 100% use. Ninth application. The graft site was free and clear of any infection. The wound/skin graft substitute was dressed with nonadherent bandage secured in place with Steri-Strips followed by bolster dressing as well as a Celso wrap. Musculoskeletal: Mild pain to palpation to full-thickness ulceration. No pain with calf compression. Debridement Note Debridement Note Debridement Free Text: Excisional debridement of the right leg lateral aspect full-thickness ulceration down to and including subcutaneous tissue with a number 7 mm dermal curette without incident. Predebridement measurement was 18.7 x 4.5 x 0.1 cm. Postdebridement measurement was 19.0 x 4.7 x 0.1 cm. Excisional debridement of the left heel dry eschar down to including subcutaneous tissue with a number 3 mm dermal curette without incident. Predebridement measurement was sanguinous crust. postdebridement measurement is 0.3 x 0.3 x 0.1 cm. EpiFix 18 mm disc was applied to the left full-thickness ulceration with 100% use. Ninth application. The graft site was free and clear of any infection. The wound/skin graft substitute was dressed with nonadherent bandage secured in place with Steri-Strips followed by bolster dressing as well as a Celso wrap. Post-Debridement Measurements and Additional Note: Post-Debridement Measurements/Treatment WC - Nurse 1 - General Ulcer Assessment Start: 06/14/24 10:16 Freq: Status: Active Protocol: GALE Activity Type Activity Date Activity User E-sign Co-sign Detail Recorded Client Recorded Date Recorded By Document 06/14/24 10:16 KW [id number] 06/14/24 10:36 KW Document 06/21/24 09:40 CP [id number] 06/21/24 09:45 CP Document 06/28/24 09:31 [id number] 06/28/24 09:42 06/14/24 06/21/24 06/28/24 10:16 09:40 09:31 WC - Today's Visit Information Type of service Follow-up Visit Follow-up Visit Follow-up Visit (Physician/HAND WRAPPER OPERATOR (Physician/HAND WRAPPER OPERATOR (Physician/HAND WRAPPER OPERATOR ) ) ) Arrival Mode Ambulatory Ambulatory Ambulatory Transfer Assistance None Patient Identification Verified (Name & Yes Yes Yes ) Height and Weight Body Mass Index (BMI) 44.6 44.6 44.6 BMI Classification Obese Obese Obese Vital Signs Temperature (97.8 F-99.1 F) 97.4 F L 96.2 F L 98.6 F Temperature Source Temporal Temporal Temporal Pulse Rate (60-100) 63 60 61 Pulse Location Monitor Monitor Monitor Respiratory Rate (12-18) 18 16 18 Respiratory rate source Observation Observation Observation Oxygen Delivery Method Room Air Room Air Room Air Blood Pressure (90/60-120/80) 147/61 H 136/84 H 144/74 H Blood Pressure Mean (mm Hg) 89 101 97 Source Monitor Monitor Monitor Position Semi-Fowlers Sitting Sitting Blood Pressure Location Left Forearm Left Forearm Left Arm History Since Last Visit- (Skip if this is Patient's initial visit) Have you changed medications since your No No No last visit? Any new allergies or adverse reactions No No No Had a fall/change in ADL's that may No No No increase risk of falls Signs or symptoms of abuse and/or No No No neglect since last visit Have you been in the hospital since your No No No last visit? Has dressing in place as prescribed Yes Yes Yes Has compression in place as prescribed Yes Yes Yes Has offloadiing in place as prescribed N/A N/A N/A Experienced any changes in pain level or No No No management Left Footwear Regular Shoe Regular Shoe Diabetic Shoe Right Footwear Regular Shoe Regular Shoe Diabetic Shoe Pain Scale: 0-10 Numeric Is Patient Pain Free? No Yes Yes RLE -Description Burning -Alleviating Factors/Interventions Medication, Inactivity/ Resting,Turning /Repositioning - Nurse 1 - General Ulcer Measurement Start: 06/14/24 10:16 Freq: Status: Active Protocol: Activity Type Activity Date Activity User E-sign Co-sign Detail Recorded Client Recorded Date Recorded By Document 06/14/24 10:16 KW [id number] 06/14/24 10:36 KW Document 06/21/24 09:40 CP [id number] 06/21/24 09:45 CP Document 06/28/24 09:31 GM [id number] 06/28/24 09:42 GM 06/14/24 06/21/24 06/28/24 10:16 09:40 09:31 Wound Center Nurse 1 #7 LT HEEL -Current Size (cm) - Length 0.1 0.1 0.1 -Current Size (cm) - Width 0.1 0.1 0.1 -Current Size (cm) - Depth 0.1 0.1 0.1 -Total Square Cm 0.01 0.01 0.01 -Date of Last Picture (Recall this 06/14/24 field) -Photo Taken Yes -Exudate Amt None Present None Present -Granulation Amt None Present (0 %) -Slough/Fibrin Yes Yes -Necrosis Amt Large (67-100%) Large (67-100%) Large (67-100%) -Necrotic Tissue Type Eschar Eschar Eschar -Texture (Mariza-wound Skin Appearance) Assessed No Abnormality -Moisture (Mariza-wound Skin Appearance) Assessed,Dry/ No Abnormality Scaly -Color (Mariza-wound Skin Appearance) Assessed No Abnormality -Temperature (Mariza-wound Skin No Abnormality No Abnormality Appearance) (Pt Warm) (Pt Warm) -Tenderness on Palpation (Mariza-wound No No Skin Appearance) -Ulcer Cleansing Soap and Water Rinsed/ Irrigated with Saline -Foul Odor after Cleansing No -Anesthetic Used 5% Lidocaine 4% Lidocaine Gel Solution #5 RT LAT LE POST-OP -Current Size (cm) - Length 20.5 20 19.3 -Current Size (cm) - Width 4.8 5 4.4 -Current Size (cm) - Depth 0.1 0.1 0.1 -Total Square Cm 98.40 100 84.92 -Date of Last Picture (Recall this 06/14/24 field) -Photo Taken Yes -Epithelialization Small 1-33% -Exudate Amt Large Small Small -Exudate Type Yellow/Green Serosanguineous Serosanguineous -Wound Margin Distinct, Flat & Intact Outline Attached -Granulation Amt Small (1-33%) Large (67-100%) Large (67-100%) -Granulation Quality Red Red Red -Slough/Fibrin Yes Yes -Necrosis Amt Large (67-100%) Small (1-33%) Small (1-33%) -Necrotic Tissue Type Adherent Slough Adherent Slough Adherent Slough -Structure Exposed N/A -Texture (Mariza-wound Skin Appearance) Assessed No Abnormality -Moisture (Mariza-wound Skin Appearance) Assessed,Dry/ No Abnormality Scaly -Color (Mariza-wound Skin Appearance) Assessed, No Abnormality Hemosiderin Staining -Temperature (Mariza-wound Skin No Abnormality No Abnormality No Abnormality Appearance) (Pt Warm) (Pt Warm) (Pt Warm) -Tenderness on Palpation (Mariza-wound No Yes Skin Appearance) -Ulcer Cleansing Soap and Water Soap and Water Soap and Water -Foul Odor after Cleansing No No No -Anesthetic Used 4% Lidocaine 4% Lidocaine Solution Solution Right Calf (cm) 37.5 Right Ankle (cm) 25.2 Left Calf (cm) 38.1 Left Ankle (cm) 25.1 WC - Nurse 2 - General Ulcer CM Notes Start: 06/14/24 10:16 Freq: Status: Active Protocol: Activity Type Activity Date Activity User E-sign Co-sign Detail Recorded Client Recorded Date Recorded By Document 06/14/24 10:49 [id number] 06/14/24 10:59 Document 06/21/24 09:55 [id number] 06/21/24 10:05 Document 06/28/24 10:02 [id number] 06/28/24 10:09 06/14/24 06/21/24 06/28/24 10:49 09:55 10:02 Wound Center Nurse 2 #7 LT HEEL -Time 10:52 10:00 10:07 -Correct Patient Yes Yes Yes -Correct Side, Site, Position Yes Yes Yes -Correct Procedure Yes Yes Yes -Procedure Performed Yes Yes Yes -Type of Procedure Debridement Debridement Debridement -Clinical Debridement Subcutaneous Subcutaneous Subcutaneous -Tissue Removed Subcutaneous Subcutaneous Subcutaneous -Post Debridement (cm) - Length 0.5 0.4 0.3 -Post Debridement (cm) - Width 0.6 0.3 0.3 -Post Debridement (cm) - Depth 0.2 0.1 0.1 -Total Square (Post) (cm) 0.30 0.12 0.09 -Area of Debridement (cm) - Length 0.5 0.4 0.3 -Area of Debridement (cm) - Width 0.6 0.3 0.3 -Total Square (Area) (cm) 0.30 0.12 0.09 -Tunneling No No No -Undermining/Tunneling No No No -Circular Undermining No No No -Wound/Ulcer Outcome Not Healed Not Healed Not Healed -Ulcer Cleansing Rinsed/ Rinsed/ Rinsed/ Irrigated with Irrigated with Irrigated with Saline Saline Saline -Foul Odor after Cleansing No No No -Bioengineered Tissue Yes Yes Yes -Type of Bioengineered Tissue Epifix 18mm Epifix 18mm Epifix 18mm Disc Disc Disc -Expiration Date 12/10/28 01/09/29 01/09/29 -Product Lot Number [id number] -Percent Used 100 100 100 -Lot number of Saline Used [id number] -Bleeding Controlled with Pressure Pressure Pressure -Treatment Response Procedure Procedure Procedure Tolerated Well Tolerated Well Tolerated Well -Offloading No No No -Debridement - Subq, 1st 20sq cm No No No -Apply Skin Sub - 1st 25 sq cm - Feet 1 1 1 -Epifix 18mm Disc 3 3 3 #5 RT LAT LE POST-OP -Time 10:49 09:55 10:03 -Correct Patient Yes Yes Yes -Correct Side, Site, Position Yes Yes Yes -Correct Procedure Yes Yes Yes -Procedure Performed Yes Yes Yes -Type of Procedure Debridement Debridement Debridement -Clinical Debridement Subcutaneous Subcutaneous Subcutaneous -Tissue Removed Subcutaneous Subcutaneous Subcutaneous -Post Debridement (cm) - Length 20.5 19.5 19 -Post Debridement (cm) - Width 5 5 4.7 -Post Debridement (cm) - Depth 0.1 0.1 0.1 -Total Square (Post) (cm) 102.5 97.5 89.3 -Area of Debridement (cm) - Length 20.5 19.5 19 -Area of Debridement (cm) - Width 5 5 4.7 -Total Square (Area) (cm) 102.5 97.5 89.3 -Tunneling No No No -Undermining/Tunneling No No No -Circular Undermining No No No -Wound/Ulcer Outcome Not Healed Not Healed Not Healed -Ulcer Cleansing Rinsed/ Rinsed/ Rinsed/ Irrigated with Irrigated with Irrigated with Saline Saline Saline -Foul Odor after Cleansing No No No -Bioengineered Tissue No No No -Bleeding Controlled with Pressure Pressure Pressure -Treatment Response Procedure Procedure Procedure Tolerated Well Tolerated Well Tolerated Well -Offloading No No No -Debridement - Subq, 1st 20sq cm Yes Yes Yes -Debridement, SubQ, ea addt'l 20sq cm 5 4 or part thereof Pain Scale: 0-10 Numeric Is Patient Pain Free? Yes Yes Yes - Nurse 3 - General Ulcer D/C NN Start: 06/14/24 10:16 Freq: Status: Active Protocol: Activity Type Activity Date Activity User E-sign Co-sign Detail Recorded Client Recorded Date Recorded By Document 06/14/24 11:21 KW [id number] 06/14/24 11:23 KW Document 06/21/24 10:20 [id number] 06/21/24 10:20 06/14/24 06/21/24 11:21 10:20 Wound Care Center Nurse 3 #7 LT HEEL -Ulcer Cleansing Rinsed/ Irrigated with Saline -Foul Odor after Cleansing No -Primary Dressing Covered/Secured with Dry Gauze & Dry Gauze & Roll Gauze, Roll Gauze, Secured with Secured with Tape Tape #5 RT LAT LE POST-OP -Ulcer Cleansing Rinsed/ Irrigated with Saline -Foul Odor after Cleansing No -Primary Dressing Applied Fibracol Plus Fibracol Plus 4x4 4x4 -Primary Dressing Covered/Secured with Dry Gauze & Dry Gauze & Roll Gauze, Roll Gauze, Secured with Secured with Tape Tape -Fibracol Plus 4x4 2 1 BLE -Compression Wrap Celso Wrap Celso Wrap Pain Scale: 0-10 Numeric Is Patient Pain Free? Yes Yes - Visit Discharge Discharge Condition Stable Stable Ambulatory Status Ambulatory Ambulatory Transportation brenda [employer] Medication Reconcilliation completed & No Yes provided to patient/care provider Clinical Summary of Care Provided Yes Yes Assessment/Plan Assessment/Plan (1) Non-pressure chronic ulcer of other part of right lower leg with fat layer exposed: CODE(S): L97.812 - Non-pressure chronic ulcer of other part of right lower leg with fat layer exposed PLAN: Patient was examined and evaluated. All findings were discussed with the patient. All questions were answered to the patient's satisfaction. Excisional debridement of the right leg lateral aspect full-thickness ulceration down to and including subcutaneous tissue with a number 7 mm dermal curette without incident. Predebridement measurement was 18.7 x 4.5 x 0.1 cm. Postdebridement measurement was 19.0 x 4.7 x 0.1 cm. Excisional debridement of the left heel dry eschar down to including subcutaneous tissue with a number 3 mm dermal curette without incident. Predebridement measurement was sanguinous crust. postdebridement measurement is 0.3 x 0.3 x 0.1 cm. EpiFix 18 mm disc was applied to the left full-thickness ulceration with 100% use. Ninth application. The graft site was free and clear of any infection. The wound/skin graft substitute was dressed with nonadherent bandage secured in place with Steri-Strips followed by bolster dressing as well as a Celso wrap. Right lower extremities were cleaned and patted dry. The full-thickness wound was dressed with fibrocal, dry sterile dressing and multilayer compression bandage to right lower extremity. Orders were given for the care home to change to the collagen and dressing every other day, as well as washing the right lower extremity with every dressing change. Continued to educate the patient on strict blood sugar control. Follow-up at the wound care center with Dr. Shannon in 1 week. (2) Non-pressure chronic ulcer of left heel and 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: CODE(S): L97.422 - Non-pressure chronic ulcer of left heel and 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
--- NOTE | 2024-06-29 09:16 | WC ---
PHOTO RIGHT POST LEG 06/28/24
[2024-07-04 08:10] VITALS: BP 147/82; PULSE 53; RESP 20; TEMP 36.1; BMI 44.6
--- NOTE | 2024-07-04 08:55 | PCM.WC.PN ---
History of Present Illness Date of Service: 07/04/24 Chief Complaint: Right buttock ulceration History of Wound: Patient is 69-year-old male who has chronic ulcerations to the bilateral lower extremity seen wound care center today for continued evaluation. Bilateral wounds are improving with no recurrence of infection. Progress of Wound: Patient is presents for bilateral full-thickness wound to the right lower extremity and left heel. Patient right lower extremity leg is slowly improving. The left heel ulceration is improving as anticipated. No further breakdown or new presence of wounds. Subjective Subjective Mr. Gutierrez is a 69-year-old diabetic male presenting to wound care center today for follow-up evaluation of right leg full-thickness wound and left heel full-thickness wound with amniotic skin graft substitute. Patient has been compliant with all dressing changes at the [facility]. He has been very grateful for his care. He denies any trauma. Denies constitutional symptoms. No other complaints at this time. Objective Data Objective Data Vital Signs: Vital Signs Temp Pulse Resp BP O2 Del Method 97 F L 53 L 20 H 147/82 H Room Air 07/04/24 08:10 07/04/24 08:10 07/04/24 08:10 07/04/24 08:10 06/28/24 09:31 Oxygen Delivery Method Room Air Weight: 157.85 kg Body Mass Index (BMI) 44.6 Physical Exam Narrative Vascular: DP and PT pulses are palpable to the right lower extremity. Nonpitting edema appreciated to the right lower extremity. Skin temperature gradient is warm to warm from proximal ankles to distal digit. No focal increase appreciated. Evidence of varicosities appreciated left lower extremity. Neurological: Light touch intact. Patient response to painful stimuli. Protective sensation is diminished. Dermatological: Full-thickness ulceration to the lateral aspect of the right leg measuring 18.8 x 4.2 x 0.1 cm. Wound base is granular. No malodor or probe to bone. No sign of infection. Full-thickness ulceration appreciated to the left heel measuring 0.3 x 0.3 x 0.1 cm. Wound base is granular nature. Excisional debridement of the right leg lateral aspect full-thickness ulceration down to and including subcutaneous tissue with a number 7 mm dermal curette without incident. Predebridement measurement was 18.5 x 4.0 x 0.1 cm. Postdebridement measurement was 18.8 x 4.2 x 0.1 cm. Excisional debridement of the left heel dry eschar down to including subcutaneous tissue with a number 3 mm dermal curette without incident. Predebridement measurement was sanguinous crust. postdebridement measurement is 0.3 x 0.3 x 0.1 cm. EpiFix 18 mm disc was applied to the left full-thickness ulceration with 100% use. 10th application. The graft site was free and clear of any infection. The wound/skin graft substitute was dressed with nonadherent bandage secured in place with Steri-Strips followed by bolster dressing as well as a Celso wrap. Musculoskeletal: Mild pain to palpation to full-thickness ulceration. No pain with calf compression. Debridement Note Debridement Note Debridement Free Text: Excisional debridement of the right leg lateral aspect full-thickness ulceration down to and including subcutaneous tissue with a number 7 mm dermal curette without incident. Predebridement measurement was 18.5 x 4.0 x 0.1 cm. Postdebridement measurement was 18.8 x 4.2 x 0.1 cm. Excisional debridement of the left heel dry eschar down to including subcutaneous tissue with a number 3 mm dermal curette without incident. Predebridement measurement was sanguinous crust. postdebridement measurement is 0.3 x 0.3 x 0.1 cm. EpiFix 18 mm disc was applied to the left full-thickness ulceration with 100% use. 10th application. The graft site was free and clear of any infection. The wound/skin graft substitute was dressed with nonadherent bandage secured in place with Steri-Strips followed by bolster dressing as well as a Celso wrap. Post-Debridement Measurements and Additional Note: Post-Debridement Measurements/Treatment - Nurse 1 - General Ulcer Assessment Start: 06/14/24 10:16 Freq: Status: Active Protocol: GALE Activity Type Activity Date Activity User E-sign Co-sign Detail Recorded Client Recorded Date Recorded By Document 06/14/24 10:16 KW [id number] 06/14/24 10:36 KW Document 06/21/24 09:40 CP [id number] 06/21/24 09:45 CP Document 06/28/24 09:31 GM [id number] 06/28/24 09:42 GM Document 07/04/24 08:10 DL [id number] 07/04/24 08:23 DL 06/14/24 06/21/24 06/28/24 10:16 09:40 09:31 WC - Today's Visit Information Type of service Follow-up Visit Follow-up Visit Follow-up Visit (Physician/CRYSTAL CUTTER (Physician/CRYSTAL CUTTER (Physician/CRYSTAL CUTTER ) ) ) Arrival Mode Ambulatory Ambulatory Ambulatory Transfer Assistance None Patient Identification Verified (Name & Yes Yes Yes ) Patient Requires Transmission-Based Precautions Height and Weight Body Mass Index (BMI) 44.6 44.6 44.6 BMI Classification Obese Obese Obese Vital Signs Temperature (97.8 F-99.1 F) 97.4 F L 96.2 F L 98.6 F Temperature Source Temporal Temporal Temporal Pulse Rate (60-100) 63 60 61 Pulse Location Monitor Monitor Monitor Respiratory Rate (12-18) 18 16 18 Respiratory rate source Observation Observation Observation Oxygen Delivery Method Room Air Room Air Room Air Blood Pressure (90/60-120/80) 147/61 H 136/84 H 144/74 H Blood Pressure Mean (mm Hg) 89 101 97 Source Monitor Monitor Monitor Position Semi-Fowlers Sitting Sitting Blood Pressure Location Left Forearm Left Forearm Left Arm History Since Last Visit- (Skip if this is Patient's initial visit) Have you changed medications since your No No No last visit? Any new allergies or adverse reactions No No No Had a fall/change in ADL's that may No No No increase risk of falls Signs or symptoms of abuse and/or No No No neglect since last visit Have you been in the hospital since your No No No last visit? Has dressing in place as prescribed Yes Yes Yes Has compression in place as prescribed Yes Yes Yes Has offloadiing in place as prescribed N/A N/A N/A Experienced any changes in pain level or No No No management Left Footwear Regular Shoe Regular Shoe Diabetic Shoe Right Footwear Regular Shoe Regular Shoe Diabetic Shoe Pain Scale: 0-10 Numeric Is Patient Pain Free? No Yes Yes RLE -Description Burning -Alleviating Factors/Interventions Medication, Inactivity/ Resting,Turning /Repositioning 07/04/24 08:10 WC - Today's Visit Information Type of service Follow-up Visit (Physician/CRYSTAL CUTTER ) Arrival Mode Ambulatory Transfer Assistance None Patient Identification Verified (Name & Yes ) Patient Requires Transmission-Based No Precautions Height and Weight Body Mass Index (BMI) 44.6 BMI Classification Obese Vital Signs Temperature (97.8 F-99.1 F) 97 F L Temperature Source Temporal Pulse Rate (60-100) 53 L Pulse Location Monitor Respiratory Rate (12-18) 20 H Respiratory rate source Observation Oxygen Delivery Method Blood Pressure (90/60-120/80) 147/82 H Blood Pressure Mean (mm Hg) 103 Source Monitor Position Blood Pressure Location History Since Last Visit- (Skip if this is Patient's initial visit) Have you changed medications since your No last visit? Any new allergies or adverse reactions No Had a fall/change in ADL's that may No increase risk of falls Signs or symptoms of abuse and/or No neglect since last visit Have you been in the hospital since your No last visit? Has dressing in place as prescribed Yes Has compression in place as prescribed Yes Has offloadiing in place as prescribed Yes Experienced any changes in pain level or No management Left Footwear Surgical Shoe with pressure relief insole Right Footwear Slipper Pain Scale: 0-10 Numeric Is Patient Pain Free? Yes RLE -Description -Alleviating Factors/Interventions WC - Nurse 1 - General Ulcer Measurement Start: 06/14/24 10:16 Freq: Status: Active Protocol: Activity Type Activity Date Activity User E-sign Co-sign Detail Recorded Client Recorded Date Recorded By Document 06/14/24 10:16 KW [id number] 06/14/24 10:36 KW Document 06/21/24 09:40 CP [id number] 06/21/24 09:45 CP Document 06/28/24 09:31 GM [id number] 06/28/24 09:42 GM Document 07/04/24 08:10 DL [id number] 07/04/24 08:23 DL 06/14/24 06/21/24 06/28/24 10:16 09:40 09:31 Wound Center Nurse 1 #7 LT HEEL -Current Size (cm) - Length 0.1 0.1 0.1 -Current Size (cm) - Width 0.1 0.1 0.1 -Current Size (cm) - Depth 0.1 0.1 0.1 -Total Square Cm 0.01 0.01 0.01 -Date of Last Picture (Recall this 06/14/24 field) -Photo Taken Yes -Exudate Amt None Present None Present -Wound Margin -Granulation Amt None Present (0 %) -Slough/Fibrin Yes Yes -Necrosis Amt Large (67-100%) Large (67-100%) Large (67-100%) -Necrotic Tissue Type Eschar Eschar Eschar -Structure Exposed -Texture (Mariza-wound Skin Appearance) Assessed No Abnormality -Moisture (Mariza-wound Skin Appearance) Assessed,Dry/ No Abnormality Scaly -Color (Mariza-wound Skin Appearance) Assessed No Abnormality -Temperature (Mariza-wound Skin No Abnormality No Abnormality Appearance) (Pt Warm) (Pt Warm) -Tenderness on Palpation (Mariza-wound No No Skin Appearance) -Ulcer Cleansing Soap and Water Rinsed/ Irrigated with Saline -Foul Odor after Cleansing No -Anesthetic Used 5% Lidocaine 4% Lidocaine Gel Solution #5 RT LAT LE POST-OP -Current Size (cm) - Length 20.5 20 19.3 -Current Size (cm) - Width 4.8 5 4.4 -Current Size (cm) - Depth 0.1 0.1 0.1 -Total Square Cm 98.40 100 84.92 -Date of Last Picture (Recall this 06/14/24 field) -Photo Taken Yes -Epithelialization Small 1-33% -Exudate Amt Large Small Small -Exudate Type Yellow/Green Serosanguineous Serosanguineous -Wound Margin Distinct, Flat & Intact Outline Attached -Granulation Amt Small (1-33%) Large (67-100%) Large (67-100%) -Granulation Quality Red Red Red -Slough/Fibrin Yes Yes -Necrosis Amt Large (67-100%) Small (1-33%) Small (1-33%) -Necrotic Tissue Type Adherent Slough Adherent Slough Adherent Slough -Structure Exposed N/A -Texture (Mariza-wound Skin Appearance) Assessed No Abnormality -Moisture (Mariza-wound Skin Appearance) Assessed,Dry/ No Abnormality Scaly -Color (Mariza-wound Skin Appearance) Assessed, No Abnormality Hemosiderin Staining -Temperature (Mariza-wound Skin No Abnormality No Abnormality No Abnormality Appearance) (Pt Warm) (Pt Warm) (Pt Warm) -Tenderness on Palpation (Mariza-wound No Yes Skin Appearance) -Ulcer Cleansing Soap and Water Soap and Water Soap and Water -Foul Odor after Cleansing No No No -Anesthetic Used 4% Lidocaine 4% Lidocaine Solution Solution Right Calf (cm) 37.5 Right Ankle (cm) 25.2 Left Calf (cm) 38.1 Left Ankle (cm) 25.1 07/04/24 08:10 Wound Center Nurse 1 #7 LT HEEL -Current Size (cm) - Length 0.1 -Current Size (cm) - Width 0.1 -Current Size (cm) - Depth 0.1 -Total Square Cm 0.01 -Date of Last Picture (Recall this field) -Photo Taken -Exudate Amt None Present -Wound Margin Thickened -Granulation Amt None Present (0 %) -Slough/Fibrin -Necrosis Amt Small (1-33%) -Necrotic Tissue Type Eschar -Structure Exposed N/A -Texture (Mariza-wound Skin Appearance) Scarring -Moisture (Mariza-wound Skin Appearance) No Abnormality -Color (Mariza-wound Skin Appearance) No Abnormality -Temperature (Mariza-wound Skin No Abnormality Appearance) (Pt Warm) -Tenderness on Palpation (Mariza-wound No Skin Appearance) -Ulcer Cleansing Soap and Water -Foul Odor after Cleansing No -Anesthetic Used 5% Lidocaine Gel #5 RT LAT LE POST-OP -Current Size (cm) - Length 19.1 -Current Size (cm) - Width 4.5 -Current Size (cm) - Depth 0.1 -Total Square Cm 85.95 -Date of Last Picture (Recall this field) -Photo Taken Yes -Epithelialization -Exudate Amt Medium -Exudate Type Serosanguineous -Wound Margin Distinct, Outline Attached -Granulation Amt Large (67-100%) -Granulation Quality Red -Slough/Fibrin -Necrosis Amt Small (1-33%) -Necrotic Tissue Type Adherent Slough -Structure Exposed N/A -Texture (Mariza-wound Skin Appearance) Localized Edema ,Scarring -Moisture (Mariza-wound Skin Appearance) No Abnormality -Color (Mariza-wound Skin Appearance) Hemosiderin Staining -Temperature (Mariza-wound Skin No Abnormality Appearance) (Pt Warm) -Tenderness on Palpation (Mariza-wound Skin Appearance) -Ulcer Cleansing Soap and Water -Foul Odor after Cleansing No -Anesthetic Used 4% Lidocaine Solution Right Calf (cm) Right Ankle (cm) Left Calf (cm) Left Ankle (cm) WC - Nurse 2 - General Ulcer CM Notes Start: 06/14/24 10:16 Freq: Status: Active Protocol: Activity Type Activity Date Activity User E-sign Co-sign Detail Recorded Client Recorded Date Recorded By Document 12/04/24 10:49 [id number] 06/14/24 10:59 Document 06/21/24 09:55 [id number] 06/21/24 10:05 Document 06/28/24 10:02 [id number] 06/28/24 10:09 Edit Result 06/28/24 10:02 JF (1) [id number] 07/04/24 08:02 Document 07/04/24 08:38 [id number] 07/04/24 08:46 JF (1) #5 RT LAT LE POST-OP - Debridement, SubQ, ea addt'l 20sq cm => 4 or part thereof 06/14/24 06/21/24 06/28/24 10:49 09:55 10:02 Wound Center Nurse 2 #7 LT HEEL -Time 10:52 10:00 10:07 -Correct Patient Yes Yes Yes -Correct Side, Site, Position Yes Yes Yes -Correct Procedure Yes Yes Yes -Procedure Performed Yes Yes Yes -Type of Procedure Debridement Debridement Debridement -Clinical Debridement Subcutaneous Subcutaneous Subcutaneous -Tissue Removed Subcutaneous Subcutaneous Subcutaneous -Post Debridement (cm) - Length 0.5 0.4 0.3 -Post Debridement (cm) - Width 0.6 0.3 0.3 -Post Debridement (cm) - Depth 0.2 0.1 0.1 -Total Square (Post) (cm) 0.30 0.12 0.09 -Area of Debridement (cm) - Length 0.5 0.4 0.3 -Area of Debridement (cm) - Width 0.6 0.3 0.3 -Total Square (Area) (cm) 0.30 0.12 0.09 -Tunneling No No No -Undermining/Tunneling No No No -Circular Undermining No No No -Wound/Ulcer Outcome Not Healed Not Healed Not Healed -Ulcer Cleansing Rinsed/ Rinsed/ Rinsed/ Irrigated with Irrigated with Irrigated with Saline Saline Saline -Foul Odor after Cleansing No No No -Bioengineered Tissue Yes Yes Yes -Type of Bioengineered Tissue Epifix 18mm Epifix 18mm Epifix 18mm Disc Disc Disc -Expiration Date 12/10/28 01/09/29 01/09/29 -Product Lot Number [id number] -Percent Used 100 100 100 -Lot number of Saline Used [id number] -Bleeding Controlled with Pressure Pressure Pressure -Treatment Response Procedure Procedure Procedure Tolerated Well Tolerated Well Tolerated Well -Offloading No No No -Debridement - Subq, 1st 20sq cm No No No -Apply Skin Sub - 1st 25 sq cm - Feet 1 1 1 -Epifix 18mm Disc 3 3 3 #5 RT LAT LE POST-OP -Time 10:49 09:55 10:03 -Correct Patient Yes Yes Yes -Correct Side, Site, Position Yes Yes Yes -Correct Procedure Yes Yes Yes -Procedure Performed Yes Yes Yes -Type of Procedure Debridement Debridement Debridement -Clinical Debridement Subcutaneous Subcutaneous Subcutaneous -Tissue Removed Subcutaneous Subcutaneous Subcutaneous -Post Debridement (cm) - Length 20.5 19.5 19 -Post Debridement (cm) - Width 5 5 4.7 -Post Debridement (cm) - Depth 0.1 0.1 0.1 -Total Square (Post) (cm) 102.5 97.5 89.3 -Area of Debridement (cm) - Length 20.5 19.5 19 -Area of Debridement (cm) - Width 5 5 4.7 -Total Square (Area) (cm) 102.5 97.5 89.3 -Tunneling No No No -Undermining/Tunneling No No No -Circular Undermining No No No -Wound/Ulcer Outcome Not Healed Not Healed Not Healed -Ulcer Cleansing Rinsed/ Rinsed/ Rinsed/ Irrigated with Irrigated with Irrigated with Saline Saline Saline -Foul Odor after Cleansing No No No -Bioengineered Tissue No No No -Bleeding Controlled with Pressure Pressure Pressure -Treatment Response Procedure Procedure Procedure Tolerated Well Tolerated Well Tolerated Well -Offloading No No No -Debridement - Subq, 1st 20sq cm Yes Yes Yes -Debridement, SubQ, ea addt'l 20sq cm 5 4 4 or part thereof Pain Scale: 0-10 Numeric Is Patient Pain Free? Yes Yes Yes 07/04/24 08:38 Wound Center Nurse 2 #7 LT HEEL -Time 08:38 -Correct Patient Yes -Correct Side, Site, Position Yes -Correct Procedure Yes -Procedure Performed Yes -Type of Procedure Debridement -Clinical Debridement Subcutaneous -Tissue Removed Subcutaneous -Post Debridement (cm) - Length 0.3 -Post Debridement (cm) - Width 0.3 -Post Debridement (cm) - Depth 0.1 -Total Square (Post) (cm) 0.09 -Area of Debridement (cm) - Length 0.3 -Area of Debridement (cm) - Width 0.3 -Total Square (Area) (cm) 0.09 -Tunneling No -Undermining/Tunneling No -Circular Undermining No -Wound/Ulcer Outcome Not Healed -Ulcer Cleansing Rinsed/ Irrigated with Saline -Foul Odor after Cleansing No -Bioengineered Tissue Yes -Type of Bioengineered Tissue Epifix 18mm Disc -Expiration Date 01/09/29 -Product Lot Number [id number] -Percent Used 100 -Lot number of Saline Used [id number] -Bleeding Controlled with Pressure -Treatment Response Procedure Tolerated Well -Offloading No -Debridement - Subq, 1st 20sq cm No -Apply Skin Sub - 1st 25 sq cm - Feet 1 -Epifix 18mm Disc 3 #5 RT LAT LE POST-OP -Time 08:39 -Correct Patient Yes -Correct Side, Site, Position Yes -Correct Procedure Yes -Procedure Performed Yes -Type of Procedure Debridement -Clinical Debridement Subcutaneous -Tissue Removed Subcutaneous -Post Debridement (cm) - Length 18.8 -Post Debridement (cm) - Width 4.2 -Post Debridement (cm) - Depth 0.1 -Total Square (Post) (cm) 78.96 -Area of Debridement (cm) - Length 18.8 -Area of Debridement (cm) - Width 4.2 -Total Square (Area) (cm) 78.96 -Tunneling No -Undermining/Tunneling No -Circular Undermining No -Wound/Ulcer Outcome Not Healed -Ulcer Cleansing Rinsed/ Irrigated with Saline -Foul Odor after Cleansing No -Bioengineered Tissue No -Bleeding Controlled with Pressure -Treatment Response Procedure Tolerated Well -Offloading No -Debridement - Subq, 1st 20sq cm Yes -Debridement, SubQ, ea addt'l 20sq cm 3 or part thereof Pain Scale: 0-10 Numeric Is Patient Pain Free? Yes WC - Nurse 3 - General Ulcer D/C NN Start: 06/14/24 10:16 Freq: Status: Active Protocol: Activity Type Activity Date Activity User E-sign Co-sign Detail Recorded Client Recorded Date Recorded By Document 06/14/24 11:21 [id number] 06/14/24 11:23 KW Document 06/21/24 10:20 JF [id number] 06/21/24 10:20 JF Document 06/28/24 10:20 CP [id number] 06/28/24 10:21 CP 06/14/24 06/21/24 06/28/24 11:21 10:20 10:20 Wound Care Center Nurse 3 #7 LT HEEL -Ulcer Cleansing Rinsed/ Irrigated with Saline -Foul Odor after Cleansing No -Primary Dressing Covered/Secured with Dry Gauze & Dry Gauze & Dry Gauze & Roll Gauze, Roll Gauze, Roll Gauze, Secured with Secured with Secured with Tape Tape Tape #5 RT LAT LE POST-OP -Ulcer Cleansing Rinsed/ Irrigated with Saline -Foul Odor after Cleansing No -Primary Dressing Applied Fibracol Plus Fibracol Plus Fibracol Plus 4x4 4x4 4x4 -Primary Dressing Covered/Secured with Dry Gauze & Dry Gauze & Dry Gauze & Roll Gauze, Roll Gauze, Roll Gauze Secured with Secured with Tape Tape -Fibracol Plus 4x4 2 1 1 Right -Lotion applied to leg before Yes compression wrap -Compression Wrap Celso Wrap Left -Lotion applied to leg before Yes compression wrap -Compression Wrap Celso Wrap BLE -Compression Wrap Celso Wrap Celso Wrap Pain Scale: 0-10 Numeric Is Patient Pain Free? Yes Yes Yes WC - Visit Discharge Discharge Condition Stable Stable Stable Ambulatory Status Ambulatory Ambulatory Ambulatory Transportation [facility] Medication Reconcilliation completed & No Yes provided to patient/care provider Clinical Summary of Care Provided Yes Yes Yes Facility Type Insurance Verifier Care Facility Orders Sent Yes Assessment/Plan Assessment/Plan (1) Non-pressure chronic ulcer of other part of right lower leg with fat layer exposed: CODE(S): L97.812 - Non-pressure chronic ulcer of other part of right lower leg with fat layer exposed PLAN: Patient was examined and evaluated. All findings were discussed with the patient. All questions were answered to the patient's satisfaction. Excisional debridement of the right leg lateral aspect full-thickness ulceration down to and including subcutaneous tissue with a number 7 mm dermal curette without incident. Predebridement measurement was 18.5 x 4.0 x 0.1 cm. Postdebridement measurement was 18.8 x 4.2 x 0.1 cm. Excisional debridement of the left heel dry eschar down to including subcutaneous tissue with a number 3 mm dermal curette without incident. Predebridement measurement was sanguinous crust. postdebridement measurement is 0.3 x 0.3 x 0.1 cm. EpiFix 18 mm disc was applied to the left full-thickness ulceration with 100% use. 10th application. The graft site was free and clear of any infection. The wound/skin graft substitute was dressed with nonadherent bandage secured in place with Steri-Strips followed by bolster dressing as well as a Celso wrap. Right lower extremities were cleaned and patted dry. The full-thickness wound was dressed with fibrocal, dry sterile dressing and multilayer compression bandage to right lower extremity. Orders were given for the retirement to change to the collagen and dressing every other day, as well as washing the right lower extremity with every dressing change. Continued to educate the patient on strict blood sugar control. Follow-up at the wound care center with Dr. Shannon in 1 week. (2) Non-pressure chronic ulcer of left heel and 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: CODE(S): L97.422 - Non-pressure chronic ulcer of left heel and 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
--- NOTE | 2024-07-06 09:31 | WC ---
PHOTO 07/04/24 RIGHT LATERAL LE
[2024-07-11 08:18] VITALS: BP 115/62; PULSE 61; RESP 16; BMI 44.6
--- NOTE | 2024-07-11 11:02 | PCM.WC.PN ---
History of Present Illness Date of Service: 07/11/24 Chief Complaint: Right buttock ulceration History of Wound: Patient is 69-year-old male who has chronic ulcerations to the bilateral lower extremity seen wound care center today for continued evaluation. Bilateral wounds are improving with no recurrence of infection. Progress of Wound: Patient is presents for bilateral full-thickness wound to the right lower extremity and left heel. Patient right lower extremity leg is slowly improving. The left heel ulceration is improving as anticipated. No further breakdown or new presence of wounds. Subjective Subjective Mr. Gutierrez is a 69-year-old diabetic male presenting to wound care center today for follow-up evaluation of full-thickness wounds to the right leg and full-thickness wound with graft application to left heel. He has been compliant with dressing changes at the sn[facility] facility. He admits improvement to his wound. Denies trauma. Denies constitutional symptoms. No other pedal complaints at this time. Objective Data Objective Data Vital Signs: Vital Signs Temp Pulse Resp BP O2 Del Method 97 F L 61 16 115/62 Room Air 07/04/24 08:10 07/11/24 08:18 07/11/24 08:18 07/11/24 08:18 07/11/24 08:18 Oxygen Delivery Method Room Air Weight: 157.85 kg Body Mass Index (BMI) 44.6 Physical Exam Narrative Vascular: DP and PT pulses are palpable to the right lower extremity. Nonpitting edema appreciated to the right lower extremity. Skin temperature gradient is warm to warm from proximal ankles to distal digit. No focal increase appreciated. Evidence of varicosities appreciated left lower extremity. Neurological: Light touch intact. Patient response to painful stimuli. Protective sensation is diminished. Dermatological: Full-thickness ulceration to the lateral aspect of the right leg measuring 18.8 x 4.1 x 0.1 cm. Wound base is granular. No malodor or probe to bone. No sign of infection. Full-thickness ulceration appreciated to the left heel with stable eschar and graft. Excisional debridement of the right leg lateral aspect full-thickness ulceration down to and including subcutaneous tissue with a number 7 mm dermal curette without incident. Predebridement measurement was 18.6 x 4.0 x 0.1 cm. Postdebridement measurement was 18.8 x 4.1 x 0.1 cm. Musculoskeletal: Mild pain to palpation to full-thickness ulceration. No pain with calf compression. Debridement Note Debridement Note Debridement Free Text: Excisional debridement of the right leg lateral aspect full-thickness ulceration down to and including subcutaneous tissue with a number 7 mm dermal curette without incident. Predebridement measurement was 18.6 x 4.0 x 0.1 cm. Postdebridement measurement was 18.8 x 4.1 x 0.1 cm. Post-Debridement Measurements and Additional Note: Post-Debridement Measurements/Treatment - Nurse 1 - General Ulcer Assessment Start: 06/14/24 10:16 Freq: Status: Active Protocol: CODY.NATALIE Activity Type Activity Date Activity User E-sign Co-sign Detail Recorded Client Recorded Date Recorded By Document 06/14/24 10:16 KW [id number] 06/14/24 10:36 KW Document 06/21/24 09:40 CP [id number] 06/21/24 09:45 CP Document 06/28/24 09:31 GM [id number] 06/28/24 09:42 GM Document 07/04/24 08:10 DL [id number] 07/04/24 08:23 DL Document 07/11/24 08:18 BMF [id number] 07/11/24 08:28 BMF 06/14/24 06/21/24 06/28/24 10:16 09:40 09:31 - Today's Visit Information Type of service Follow-up Visit Follow-up Visit Follow-up Visit (Physician/MOTOR VEHICLE LICENSE CLERK (Physician/MOTOR VEHICLE LICENSE CLERK (Physician/MOTOR VEHICLE LICENSE CLERK ) ) ) Arrival Mode Ambulatory Ambulatory Ambulatory Transfer Assistance None Patient Identification Verified (Name & Yes Yes Yes ) Patient Requires Transmission-Based Precautions Finger Stick Blood Sugar(mg/dl) (if indicated): Blood Sugar Height and Weight Body Mass Index (BMI) 44.6 44.6 44.6 BMI Classification Obese Obese Obese Vital Signs Temperature (97.8 F-99.1 F) 97.4 F L 96.2 F L 98.6 F Temperature Source Temporal Temporal Temporal Pulse Rate (60-100) 63 60 61 Pulse Location Monitor Monitor Monitor Respiratory Rate (12-18) 18 16 18 Respiratory rate source Observation Observation Observation Oxygen Delivery Method Room Air Room Air Room Air Blood Pressure (90/60-120/80) 147/61 H 136/84 H 144/74 H Blood Pressure Mean (mm Hg) 89 101 97 Source Monitor Monitor Monitor Position Semi-Fowlers Sitting Sitting Blood Pressure Location Left Forearm Left Forearm Left Arm History Since Last Visit- (Skip if this is Patient's initial visit) Have you changed medications since your No No No last visit? Any new allergies or adverse reactions No No No Had a fall/change in ADL's that may No No No increase risk of falls Signs or symptoms of abuse and/or No No No neglect since last visit Have you been in the hospital since your No No No last visit? Has dressing in place as prescribed Yes Yes Yes Has compression in place as prescribed Yes Yes Yes Has offloadiing in place as prescribed N/A N/A N/A Experienced any changes in pain level or No No No management Left Footwear Regular Shoe Regular Shoe Diabetic Shoe Right Footwear Regular Shoe Regular Shoe Diabetic Shoe Pain Scale: 0-10 Numeric Is Patient Pain Free? No Yes Yes RLE -Description Burning -Alleviating Factors/Interventions Medication, Inactivity/ Resting,Turning /Repositioning 07/04/24 07/11/24 08:10 08:18 WC - Today's Visit Information Type of service Follow-up Visit Follow-up Visit (Physician/MOTOR VEHICLE LICENSE CLERK (Physician/MOTOR VEHICLE LICENSE CLERK ) ) Arrival Mode Ambulatory Ambulatory Transfer Assistance None None Patient Identification Verified (Name & Yes Yes ) Patient Requires Transmission-Based No No Precautions Finger Stick Blood Sugar(mg/dl) (if 95 indicated): Blood Sugar Stated by Patient Height and Weight Body Mass Index (BMI) 44.6 44.6 BMI Classification Obese Obese Vital Signs Temperature (97.8 F-99.1 F) 97 F L Temperature Source Temporal Pulse Rate (60-100) 53 L 61 Pulse Location Monitor Monitor Respiratory Rate (12-18) 20 H 16 Respiratory rate source Observation Observation Oxygen Delivery Method Room Air Blood Pressure (90/60-120/80) 147/82 H 115/62 Blood Pressure Mean (mm Hg) 103 79 Source Monitor Monitor Position Sitting Blood Pressure Location Right Arm History Since Last Visit- (Skip if this is Patient's initial visit) Have you changed medications since your No No last visit? Any new allergies or adverse reactions No No Had a fall/change in ADL's that may No No increase risk of falls Signs or symptoms of abuse and/or No No neglect since last visit Have you been in the hospital since your No No last visit? Has dressing in place as prescribed Yes Yes Has compression in place as prescribed Yes Yes Has offloadiing in place as prescribed Yes N/A Experienced any changes in pain level or No No management Left Footwear Surgical Shoe Diabetic Shoe with pressure relief insole Right Footwear Slipper Diabetic Shoe Pain Scale: 0-10 Numeric Is Patient Pain Free? Yes Yes RLE -Description -Alleviating Factors/Interventions WC - Nurse 1 - General Ulcer Measurement Start: 06/14/24 10:16 Freq: Status: Active Protocol: Activity Type Activity Date Activity User E-sign Co-sign Detail Recorded Client Recorded Date Recorded By Document 06/14/24 10:16 KW [id number] 06/14/24 10:36 KW Document 06/21/24 09:40 CP [id number] 06/21/24 09:45 CP Document 06/28/24 09:31 GM [id number] 06/28/24 09:42 GM Document 07/04/24 08:10 DL [id number] 07/04/24 08:23 DL Document 07/11/24 08:18 BMF [id number] 07/11/24 08:28 BMF 06/14/24 06/21/24 06/28/24 10:16 09:40 09:31 Wound Center Nurse 1 #7 LT HEEL -Combined with other wound -Current Size (cm) - Length 0.1 0.1 0.1 -Current Size (cm) - Width 0.1 0.1 0.1 -Current Size (cm) - Depth 0.1 0.1 0.1 -Total Square Cm 0.01 0.01 0.01 -Date of Last Picture (Recall this 06/14/24 field) -Photo Taken Yes -Exudate Amt None Present None Present -Wound Margin -Granulation Amt None Present (0 %) -Slough/Fibrin Yes Yes -Necrosis Amt Large (67-100%) Large (67-100%) Large (67-100%) -Necrotic Tissue Type Eschar Eschar Eschar -Structure Exposed -Texture (Mariza-wound Skin Appearance) Assessed No Abnormality -Moisture (Mariza-wound Skin Appearance) Assessed,Dry/ No Abnormality Scaly -Color (Mariza-wound Skin Appearance) Assessed No Abnormality -Temperature (Mariza-wound Skin No Abnormality No Abnormality Appearance) (Pt Warm) (Pt Warm) -Tenderness on Palpation (Mariza-wound No No Skin Appearance) -Ulcer Cleansing Soap and Water Rinsed/ Irrigated with Saline -Foul Odor after Cleansing No -Anesthetic Used 5% Lidocaine 4% Lidocaine Gel Solution -Wound Comment(s) #5 RT LAT LE POST-OP -Combined with other wound -Current Size (cm) - Length 20.5 20 19.3 -Current Size (cm) - Width 4.8 5 4.4 -Current Size (cm) - Depth 0.1 0.1 0.1 -Total Square Cm 98.40 100 84.92 -Date of Last Picture (Recall this 06/14/24 field) -Photo Taken Yes -Epithelialization Small 1-33% -Tunneling -Undermining/Tunneling -Circular Undermining -Exudate Amt Large Small Small -Exudate Type Yellow/Green Serosanguineous Serosanguineous -Wound Margin Distinct, Flat & Intact Outline Attached -Granulation Amt Small (1-33%) Large (67-100%) Large (67-100%) -Granulation Quality Red Red Red -Slough/Fibrin Yes Yes -Necrosis Amt Large (67-100%) Small (1-33%) Small (1-33%) -Necrotic Tissue Type Adherent Slough Adherent Slough Adherent Slough -Structure Exposed N/A -Texture (Mariza-wound Skin Appearance) Assessed No Abnormality -Moisture (Mariza-wound Skin Appearance) Assessed,Dry/ No Abnormality Scaly -Color (Mariza-wound Skin Appearance) Assessed, No Abnormality Hemosiderin Staining -Temperature (Mariza-wound Skin No Abnormality No Abnormality No Abnormality Appearance) (Pt Warm) (Pt Warm) (Pt Warm) -Tenderness on Palpation (Mariza-wound No Yes Skin Appearance) -Ulcer Cleansing Soap and Water Soap and Water Soap and Water -Foul Odor after Cleansing No No No -Anesthetic Used 4% Lidocaine 4% Lidocaine Solution Solution Lower Limb Edema Present Right Calf (cm) 37.5 Right Ankle (cm) 25.2 Left Calf (cm) 38.1 Left Ankle (cm) 25.1 07/04/24 07/11/24 08:10 08:18 Wound Center Nurse 1 #7 LT HEEL -Combined with other wound No -Current Size (cm) - Length 0.1 0.1 -Current Size (cm) - Width 0.1 0.1 -Current Size (cm) - Depth 0.1 0.1 -Total Square Cm 0.01 0.01 -Date of Last Picture (Recall this field) -Photo Taken -Exudate Amt None Present -Wound Margin Thickened -Granulation Amt None Present (0 %) -Slough/Fibrin -Necrosis Amt Small (1-33%) -Necrotic Tissue Type Eschar -Structure Exposed N/A -Texture (Mariza-wound Skin Appearance) Scarring -Moisture (Mariza-wound Skin Appearance) No Abnormality -Color (Mariza-wound Skin Appearance) No Abnormality -Temperature (Mariza-wound Skin No Abnormality Appearance) (Pt Warm) -Tenderness on Palpation (Mariza-wound No Skin Appearance) -Ulcer Cleansing Soap and Water -Foul Odor after Cleansing No -Anesthetic Used 5% Lidocaine Gel -Wound Comment(s) epi left intact per cm direction #5 RT LAT LE POST-OP -Combined with other wound No -Current Size (cm) - Length 19.1 8.9 -Current Size (cm) - Width 4.5 4.6 -Current Size (cm) - Depth 0.1 0.1 -Total Square Cm 85.95 40.94 -Date of Last Picture (Recall this field) -Photo Taken Yes -Epithelialization None Present -Tunneling No -Undermining/Tunneling No -Circular Undermining No -Exudate Amt Medium Large -Exudate Type Serosanguineous Serosanguineous -Wound Margin Distinct, Distinct, Outline Outline Attached Attached -Granulation Amt Large (67-100%) Large (67-100%) -Granulation Quality Red Red -Slough/Fibrin Yes -Necrosis Amt Small (1-33%) Small (1-33%) -Necrotic Tissue Type Adherent Slough Adherent Slough -Structure Exposed N/A -Texture (Mariza-wound Skin Appearance) Localized Edema Assessed, ,Scarring Excoriation, Scarring,Rash -Moisture (Mariza-wound Skin Appearance) No Abnormality Assessed,Dry/ Scaly -Color (Mariza-wound Skin Appearance) Hemosiderin Assessed, Staining Erythema -Temperature (Mariza-wound Skin No Abnormality No Abnormality Appearance) (Pt Warm) (Pt Warm) -Tenderness on Palpation (Mariza-wound No Skin Appearance) -Ulcer Cleansing Soap and Water Soap and Water -Foul Odor after Cleansing No No -Anesthetic Used 4% Lidocaine 4% Lidocaine Solution Solution Lower Limb Edema Present Yes Right Calf (cm) 36.5 Right Ankle (cm) 26.1 Left Calf (cm) Left Ankle (cm) WC - Nurse 2 - General Ulcer CM Notes Start: 06/14/24 10:16 Freq: Status: Active Protocol: Activity Type Activity Date Activity User E-sign Co-sign Detail Recorded Client Recorded Date Recorded By Document 06/14/24 10:49 TALI [id number] 06/14/24 10:59 JF Document 06/21/24 09:55 JF [id number] 06/21/24 10:05 JF Document 06/28/24 10:02 [id number] 06/28/24 10:09 Edit Result 06/28/24 10:02 JF (1) [id number] 07/04/24 08:02 JF Document 07/04/24 08:38 JF [id number] 07/04/24 08:46 Document 07/11/24 08:50 [id number] 07/11/24 08:56 JF (1) #5 RT LAT LE POST-OP - Debridement, SubQ, ea addt'l 20sq cm => 4 or part thereof 06/14/24 06/21/24 06/28/24 10:49 09:55 10:02 Wound Center Nurse 2 #7 LT HEEL -Time 10:52 10:00 10:07 -Correct Patient Yes Yes Yes -Correct Side, Site, Position Yes Yes Yes -Correct Procedure Yes Yes Yes -Procedure Performed Yes Yes Yes -Type of Procedure Debridement Debridement Debridement -Clinical Debridement Subcutaneous Subcutaneous Subcutaneous -Tissue Removed Subcutaneous Subcutaneous Subcutaneous -Post Debridement (cm) - Length 0.5 0.4 0.3 -Post Debridement (cm) - Width 0.6 0.3 0.3 -Post Debridement (cm) - Depth 0.2 0.1 0.1 -Total Square (Post) (cm) 0.30 0.12 0.09 -Area of Debridement (cm) - Length 0.5 0.4 0.3 -Area of Debridement (cm) - Width 0.6 0.3 0.3 -Total Square (Area) (cm) 0.30 0.12 0.09 -Tunneling No No No -Undermining/Tunneling No No No -Circular Undermining No No No -Wound/Ulcer Outcome Not Healed Not Healed Not Healed -Ulcer Cleansing Rinsed/ Rinsed/ Rinsed/ Irrigated with Irrigated with Irrigated with Saline Saline Saline -Foul Odor after Cleansing No No No -Bioengineered Tissue Yes Yes Yes -Type of Bioengineered Tissue Epifix 18mm Epifix 18mm Epifix 18mm Disc Disc Disc -Expiration Date 12/10/28 01/09/29 01/09/29 -Product Lot Number [id number] -Percent Used 100 100 100 -Lot number of Saline Used [id number] -Bleeding Controlled with Pressure Pressure Pressure -Treatment Response Procedure Procedure Procedure Tolerated Well Tolerated Well Tolerated Well -Offloading No No No -Debridement - Subq, 1st 20sq cm No No No -Apply Skin Sub - 1st 25 sq cm - Feet 1 1 1 -Epifix 18mm Disc 3 3 3 #5 RT LAT LE POST-OP -Time 10:49 09:55 10:03 -Correct Patient Yes Yes Yes -Correct Side, Site, Position Yes Yes Yes -Correct Procedure Yes Yes Yes -Procedure Performed Yes Yes Yes -Type of Procedure Debridement Debridement Debridement -Clinical Debridement Subcutaneous Subcutaneous Subcutaneous -Tissue Removed Subcutaneous Subcutaneous Subcutaneous -Post Debridement (cm) - Length 20.5 19.5 19 -Post Debridement (cm) - Width 5 5 4.7 -Post Debridement (cm) - Depth 0.1 0.1 0.1 -Total Square (Post) (cm) 102.5 97.5 89.3 -Area of Debridement (cm) - Length 20.5 19.5 19 -Area of Debridement (cm) - Width 5 5 4.7 -Total Square (Area) (cm) 102.5 97.5 89.3 -Tunneling No No No -Undermining/Tunneling No No No -Circular Undermining No No No -Wound/Ulcer Outcome Not Healed Not Healed Not Healed -Ulcer Cleansing Rinsed/ Rinsed/ Rinsed/ Irrigated with Irrigated with Irrigated with Saline Saline Saline -Foul Odor after Cleansing No No No -Bioengineered Tissue No No No -Bleeding Controlled with Pressure Pressure Pressure -Treatment Response Procedure Procedure Procedure Tolerated Well Tolerated Well Tolerated Well -Offloading No No No -Debridement - Subq, 1st 20sq cm Yes Yes Yes -Debridement, SubQ, ea addt'l 20sq cm 5 4 4 or part thereof Pain Scale: 0-10 Numeric Is Patient Pain Free? Yes Yes Yes 07/04/24 07/11/24 08:38 08:50 Wound Center Nurse 2 #7 LT HEEL -Time 08:38 -Correct Patient Yes -Correct Side, Site, Position Yes -Correct Procedure Yes -Procedure Performed Yes -Type of Procedure Debridement -Clinical Debridement Subcutaneous -Tissue Removed Subcutaneous -Post Debridement (cm) - Length 0.3 -Post Debridement (cm) - Width 0.3 -Post Debridement (cm) - Depth 0.1 -Total Square (Post) (cm) 0.09 -Area of Debridement (cm) - Length 0.3 -Area of Debridement (cm) - Width 0.3 -Total Square (Area) (cm) 0.09 -Tunneling No -Undermining/Tunneling No -Circular Undermining No -Wound/Ulcer Outcome Not Healed -Ulcer Cleansing Rinsed/ Irrigated with Saline -Foul Odor after Cleansing No -Bioengineered Tissue Yes -Type of Bioengineered Tissue Epifix 18mm Disc -Expiration Date 01/09/29 -Product Lot Number [id number] -Percent Used 100 -Lot number of Saline Used [id number] -Bleeding Controlled with Pressure -Treatment Response Procedure Tolerated Well -Offloading No -Debridement - Subq, 1st 20sq cm No -Apply Skin Sub - 1st 25 sq cm - Feet 1 -Epifix 18mm Disc 3 #5 RT LAT LE POST-OP -Time 08:39 08:50 -Correct Patient Yes Yes -Correct Side, Site, Position Yes Yes -Correct Procedure Yes Yes -Procedure Performed Yes Yes -Type of Procedure Debridement Debridement -Clinical Debridement Subcutaneous Subcutaneous -Tissue Removed Subcutaneous Subcutaneous -Post Debridement (cm) - Length 18.8 18.8 -Post Debridement (cm) - Width 4.2 4.1 -Post Debridement (cm) - Depth 0.1 0.1 -Total Square (Post) (cm) 78.96 77.08 -Area of Debridement (cm) - Length 18.8 18.8 -Area of Debridement (cm) - Width 4.2 4.1 -Total Square (Area) (cm) 78.96 77.08 -Tunneling No No -Undermining/Tunneling No No -Circular Undermining No No -Wound/Ulcer Outcome Not Healed Not Healed -Ulcer Cleansing Rinsed/ Rinsed/ Irrigated with Irrigated with Saline Saline -Foul Odor after Cleansing No No -Bioengineered Tissue No No -Bleeding Controlled with Pressure Pressure -Treatment Response Procedure Procedure Tolerated Well Tolerated Well -Offloading No No -Debridement - Subq, 1st 20sq cm Yes Yes -Debridement, SubQ, ea addt'l 20sq cm 3 3 or part thereof Pain Scale: 0-10 Numeric Is Patient Pain Free? Yes Yes WC - Nurse 3 - General Ulcer D/C NN Start: 06/14/24 10:16 Freq: Status: Active Protocol: Activity Type Activity Date Activity User E-sign Co-sign Detail Recorded Client Recorded Date Recorded By Document 06/14/24 11:21 KW [id number] 06/14/24 11:23 KW Document 06/21/24 10:20 JF [id number] 06/21/24 10:20 JF Document 06/28/24 10:20 CP [id number] 06/28/24 10:21 CP Document 07/04/24 09:08 DL [id number] 07/04/24 09:13 DL Document 07/11/24 09:28 BMF [id number] 07/11/24 09:29 BMF 06/14/24 06/21/24 06/28/24 11:21 10:20 10:20 Wound Care Center Nurse 3 #7 LT HEEL -Ulcer Cleansing Rinsed/ Irrigated with Saline -Foul Odor after Cleansing No -Other Dressing -Primary Dressing Covered/Secured with Dry Gauze & Dry Gauze & Dry Gauze & Roll Gauze, Roll Gauze, Roll Gauze, Secured with Secured with Secured with Tape Tape Tape -Wound Comment(s) #5 RT LAT LE POST-OP -Ulcer Cleansing Rinsed/ Irrigated with Saline -Foul Odor after Cleansing No -Primary Dressing Applied Fibracol Plus Fibracol Plus Fibracol Plus 4x4 4x4 4x4 -Other Dressing -Primary Dressing Covered/Secured with Dry Gauze & Dry Gauze & Dry Gauze & Roll Gauze, Roll Gauze, Roll Gauze Secured with Secured with Tape Tape -Other Covering -Fibracol Plus 4x4 2 1 1 Right -Lotion applied to leg before Yes compression wrap -Compression Wrap Celso Wrap Left -Lotion applied to leg before Yes compression wrap -Compression Wrap Celso Wrap BLE -Compression Wrap Celso Wrap Celso Wrap Treatment Response Pain Scale: 0-10 Numeric Is Patient Pain Free? Yes Yes Yes WC - Visit Discharge Discharge Condition Stable Stable Stable Ambulatory Status Ambulatory Ambulatory Ambulatory Transportation brenda Private Auto Medication Reconcilliation completed & No Yes provided to patient/care provider Clinical Summary of Care Provided Yes Yes Yes Facility Type [facility] Orders Sent Yes 07/04/24 07/11/24 09:08 09:28 Wound Care Center Nurse 3 #7 LT HEEL -Ulcer Cleansing -Foul Odor after Cleansing No -Other Dressing Epifix -Primary Dressing Covered/Secured with Dry Gauze & Dry Gauze & Roll Gauze, Roll Gauze, Secured with Secured with Tape Tape -Wound Comment(s) LLE padded #5 RT LAT LE POST-OP -Ulcer Cleansing Soap and Water Rinsed/ Irrigated with Saline -Foul Odor after Cleansing No No -Primary Dressing Applied Fibracol Plus Fibracol Plus 4x4 4x4 -Other Dressing abd -Primary Dressing Covered/Secured with Dry Gauze & Dry Gauze & Roll Gauze, Roll Gauze, Secured with Secured with Tape Tape -Other Covering ABD/CELSO -Fibracol Plus 4x4 1 1 Right -Lotion applied to leg before compression wrap -Compression Wrap Left -Lotion applied to leg before compression wrap -Compression Wrap BLE -Compression Wrap Celso Wrap Celso Wrap Treatment Response Procedure Procedure Tolerated Well Tolerated Well Pain Scale: 0-10 Numeric Is Patient Pain Free? 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 All findings were discussed with the patient. All questions were answered to the patient's satisfaction. Excisional debridement of the right leg lateral aspect full-thickness ulceration down to and including subcutaneous tissue with a number 7 mm dermal curette without incident. Predebridement measurement was 18.6 x 4.0 x 0.1 cm. Postdebridement measurement was 18.8 x 4.1 x 0.1 cm. Right lower extremities were cleaned and patted dry. The full-thickness wound was dressed with fibrocal, dry sterile dressing and multilayer compression bandage to right lower extremity. Orders were given for the assisted to change to the collagen and dressing every other day, as well as washing the right lower extremity with every dressing change. The left heel was dressed with dry sterile dressing and compression wrap. Continued to educate the patient on strict blood sugar control. Follow-up at the wound care center with Dr. Shannon in 1 week. (2) Non-pressure chronic ulcer of left heel and 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: CODE(S): L97.422 - Non-pressure chronic ulcer of left heel and 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
== END 2024-07-11 23:59 | disposition home or self-care (01) ==
LOC: WC 08:30
PROVIDERS: Referring Provider Surgery; Visit Provider Podiatrist Foot & Ankle Surgery
DX: E11.622 Type 2 diabetes mellitus with other skin ulcer (principal); E11.621 Type 2 diabetes mellitus with foot ulcer; L97.422 Non-pressure chronic ulcer of left heel and 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; L97.412 Non-pressure chronic ulcer of right heel and 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; L97.219 Non-pressure chronic ulcer of right calf with unspecified severity; E66.01 Morbid (severe) obesity due to excess calories; Z68.42 Body mass index [BMI] 45.0-49.9, adult; L89.219 Pressure ulcer of right hip, unspecified stage; Z86.718 Personal history of other venous thrombosis and embolism
CPT/HCPCS: 11042; 11045; 15275; Q4186

== ENCOUNTER 2024-07-26 08:45 | Outpatient (RCR) | payer MEDICARE, SELFPAY ==
[2024-07-12 00:43] VITALS: BP 167/86; PULSE 60; RESP 16; TEMP 36.2; BMI 44.6
[2024-07-19 08:30] VITALS: BP 130/67; PULSE 60; RESP 18; BMI 44.6
--- NOTE | 2024-07-19 11:26 | PCM.WC.PN ---
History of Present Illness Date of Service: 07/11/24 Chief Complaint: Right buttock ulceration History of Wound: Patient is 69-year-old male who has chronic ulcerations to the bilateral lower extremity seen wound care center today for continued evaluation. Bilateral wounds are improving with no recurrence of infection. Progress of Wound: Patient is presents for bilateral full-thickness wound to the right lower extremity and left heel. Patient right lower extremity leg is slowly improving. The left heel ulceration is improving as anticipated. No further breakdown or new presence of wounds. Subjective Subjective Mr. Gutierrez is a 69-year-old diabetic male presenting to wound care center today for follow-up evaluation of full-thickness wounds to the right leg and full-thickness wound with graft application to left heel. He has been compliant with dressing changes at the [facility] facility. He admits improvement to his wound. Denies trauma. Denies constitutional symptoms. No other pedal complaints at this time. Objective Data Objective Data Vital Signs: Vital Signs Temp Pulse Resp BP O2 Del Method 97.2 F L 60 18 130/67 H Room Air 07/12/24 00:43 07/19/24 08:30 07/19/24 08:30 07/19/24 08:30 07/19/24 08:30 Oxygen Delivery Method Room Air Weight: 157.85 kg Body Mass Index (BMI) 44.6 Physical Exam Narrative Vascular: DP and PT pulses are palpable to the right lower extremity. Nonpitting edema appreciated to the right lower extremity. Skin temperature gradient is warm to warm from proximal ankles to distal digit. No focal increase appreciated. Evidence of varicosities appreciated left lower extremity. Neurological: Light touch intact. Patient response to painful stimuli. Protective sensation is diminished. Dermatological: Full-thickness ulceration to the lateral aspect of the right leg measuring 18.2 x 4.0 x 0.1 cm. Wound base is granular. No malodor or probe to bone. No sign of infection. Full-thickness ulceration appreciated to the left heel with stable eschar and graft. Excisional debridement of the right leg lateral aspect full-thickness ulceration down to and including subcutaneous tissue with a number 7 mm dermal curette without incident. Predebridement measurement was 17.8 x 3.8 x 0.1 cm. Postdebridement measurement was 18.2 x 4.0 x 0.1 cm. Musculoskeletal: Mild pain to palpation to full-thickness ulceration. No pain with calf compression. Debridement Note Debridement Note Debridement Free Text: Excisional debridement of the right leg lateral aspect full-thickness ulceration down to and including subcutaneous tissue with a number 7 mm dermal curette without incident. Predebridement measurement was 17.8 x 3.8 x 0.1 cm. Postdebridement measurement was 18.2 x 4.0 x 0.1 cm. 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 Any new allergies or adverse reactions No Had a fall/change in ADL's that may No increase risk of falls Signs or symptoms of abuse and/or No neglect since last visit Have you been in the hospital since your No last visit? Has dressing in place as prescribed Yes Has compression in place as prescribed Yes Has offloadiing in place as prescribed N/A Experienced any changes in pain level or No management Left Footwear Regular Shoe Right Footwear Regular Shoe Pain Scale: 0-10 Numeric Is Patient Pain Free? Yes - Nurse 1 - General Ulcer Measurement Start: 07/19/24 08:30 Freq: Status: Active Protocol: Activity Type Activity Date Activity User E-sign Co-sign Detail Recorded Client Recorded Date Recorded By Document 07/19/24 08:30 KW [id number] 07/19/24 08:38 KW 07/19/24 08:30 Wound Center Nurse 1 #7 LT HEEL -Current Size (cm) - Length 0.1 -Current Size (cm) - Width 0.1 -Current Size (cm) - Depth 0.1 -Total Square Cm 0.01 -Exudate Amt None Present -Wound Margin Distinct, Outline Attached -Texture (Mariza-wound Skin Appearance) Assessed -Moisture (Mariza-wound Skin Appearance) Assessed -Color (Mariza-wound Skin Appearance) Assessed -Temperature (Mariza-wound Skin No Abnormality Appearance) (Pt Warm) -Tenderness on Palpation (Mariza-wound No Skin Appearance) -Ulcer Cleansing Soap and Water -Foul Odor after Cleansing No -Anesthetic Used 4% Lidocaine Solution #5 RT LAT LE POST-OP -Current Size (cm) - Length 17.5 -Current Size (cm) - Width 4 -Current Size (cm) - Depth 0.1 -Total Square Cm 70.0 -Exudate Amt Medium -Exudate Type Serosanguineous -Wound Margin Distinct, Outline Attached -Granulation Amt Large (67-100%) -Granulation Quality Red -Texture (Mariza-wound Skin Appearance) Assessed -Moisture (Mariza-wound Skin Appearance) Assessed -Color (Mariza-wound Skin Appearance) Assessed -Temperature (Mariza-wound Skin No Abnormality Appearance) (Pt Warm) -Tenderness on Palpation (Mariza-wound No Skin Appearance) -Ulcer Cleansing Soap and Water -Anesthetic Used 4% Lidocaine Solution WC - Nurse 2 - General Ulcer CM Notes Start: 07/19/24 08:30 Freq: Status: Active Protocol: Activity Type Activity Date Activity User E-sign Co-sign Detail Recorded Client Recorded Date Recorded By Document 07/19/24 09:08 TALI [id number] 07/19/24 09:14 TALI 07/19/24 09:08 Wound Center Nurse 2 #7 LT HEEL -Correct Patient Yes -Correct Side, Site, Position No -Correct Procedure No -Procedure Performed No -Wound/Ulcer Outcome Not Healed #5 RT LAT LE POST-OP -Time 09:10 -Correct Patient Yes -Correct Side, Site, Position Yes -Correct Procedure Yes -Procedure Performed Yes -Type of Procedure Debridement -Clinical Debridement Subcutaneous -Tissue Removed Subcutaneous -Post Debridement (cm) - Length 18.2 -Post Debridement (cm) - Width 4.0 -Post Debridement (cm) - Depth 0.1 -Total Square (Post) (cm) 72.80 -Area of Debridement (cm) - Length 18.2 -Area of Debridement (cm) - Width 4.0 -Total Square (Area) (cm) 72.80 -Tunneling No -Undermining/Tunneling No -Circular Undermining No -Wound/Ulcer Outcome Not Healed -Ulcer Cleansing Rinsed/ Irrigated with Saline -Foul Odor after Cleansing No -Bioengineered Tissue No -Bleeding Controlled with Pressure -Treatment Response Procedure Tolerated Well -Offloading No -Debridement - Subq, 1st 20sq cm Yes -Debridement, SubQ, ea addt'l 20sq cm 3 or part thereof Pain Scale: 0-10 Numeric Is Patient Pain Free? Yes - Nurse 3 - General Ulcer D/C NN Start: 07/19/24 08:30 Freq: Status: Active Protocol: Activity Type Activity Date Activity User E-sign Co-sign Detail Recorded Client Recorded Date Recorded By Document 07/19/24 09:32 RB [id number] 07/19/24 09:33 RB 07/19/24 09:32 Wound Care Center Nurse 3 #7 LT HEEL -Primary Dressing Covered/Secured with Dry Gauze,Dry Gauze & Roll Gauze,Secured with Tape #5 RT LAT LE POST-OP -Ulcer Cleansing Rinsed/ Irrigated with Saline -Primary Dressing Applied Optilok 8x12, Promogran Page Matter -Optilok 8x12 1 -Promogran Page Matter 1 Right -Multi-Layered Wrap Application Multi-Layer Comp - Right ($ ) Left -Other lewis Treatment Response Procedure Tolerated Well Pain Scale: 0-10 Numeric Is Patient Pain Free? Yes - Visit Discharge Discharge Condition Stable Ambulatory Status Ambulatory Transportation Private Auto Medication Reconcilliation completed & No provided to patient/care provider Clinical Summary of Care Provided Yes Assessment/Plan Assessment/Plan (1) Non-pressure chronic ulcer of other part of right lower leg with fat layer exposed: CODE(S): L97.812 - Non-pressure chronic ulcer of other part of right lower leg with fat layer exposed PLAN: Patient was examined and evaluated. All findings were discussed with the patient. All questions were answered to the patient's satisfaction. Excisional debridement of the right leg lateral aspect full-thickness ulceration down to and including subcutaneous tissue with a number 7 mm dermal curette without incident. Predebridement measurement was 17.8 x 3.8 x 0.1 cm. Postdebridement measurement was 18.2 x 4.0 x 0.1 cm. The right lower extremities were cleaned and patted dry. Page was applied to the full-thickness wound followed by a multilayer compression bandage that remain clean dry and intact until patient follow-up. Continued to educate the patient on strict blood sugar control. Follow-up at the wound care center with Dr. Shannon in 1 week. (2) Non-pressure chronic ulcer of left heel and 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: CODE(S): L97.422 - Non-pressure chronic ulcer of left heel and 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
[2024-07-26 08:58] VITALS: BP 115/66; PULSE 60; RESP 18; TEMP 36.1; BMI 44.6
--- NOTE | 2024-07-26 10:08 | PCM.WC.PN ---
History of Present Illness Date of Service: 07/11/24 Chief Complaint: Right buttock ulceration History of Wound: Patient is 69-year-old male who has chronic ulcerations to the bilateral lower extremity seen wound care center today for continued evaluation. Bilateral wounds are improving with no recurrence of infection. Progress of Wound: Patient is presents for bilateral full-thickness wound to the right lower extremity and left heel. Patient right lower extremity leg is slowly improving. The left heel ulceration is improving as anticipated. No further breakdown or new presence of wounds. Subjective Subjective Mr. Alvarez is a 69-year-old diabetic male presenting to wound care center today for follow-up evaluation of full-thickness wounds to the right leg and full-thickness wound with graft application to left heel. Patient left heel is now completely healed and he is grateful for that speeding healing time. He admits to getting the dressing weight to the right lower extremity when getting a shower the other day. He denies any pain to the level of the right lower extremity or left heel. Denies trauma. Denies constitutional symptoms. No other pedal complaints at this time. Objective Data Objective Data Vital Signs: Vital Signs Temp Pulse Resp BP O2 Del Method 97 F L 60 18 115/66 Room Air 07/26/24 08:58 07/26/24 08:58 07/26/24 08:58 07/26/24 08:58 07/26/24 08:58 Oxygen Delivery Method Room Air Weight: 157.85 kg Body Mass Index (BMI) 44.6 Physical Exam Narrative Vascular: DP and PT pulses are palpable to the right lower extremity. Nonpitting edema appreciated to the right lower extremity. Skin temperature gradient is warm to warm from proximal ankles to distal digit. No focal increase appreciated. Evidence of varicosities appreciated left lower extremity. Neurological: Light touch intact. Patient response to painful stimuli. Protective sensation is diminished. Dermatological: Full-thickness ulceration to the lateral aspect of the right leg measuring 18.2 x 4.1 x 0.1 cm. Wound base is granular. No malodor or probe to bone. No sign of infection. Full-thickness ulceration appreciated to the left heel with stable eschar and graft. Excisional debridement of the right leg lateral aspect full-thickness ulceration down to and including subcutaneous tissue with a number 7 mm dermal curette without incident. Predebridement measurement was 18.0 x 4.0 x 0.1 cm. Postdebridement measurement was 18.2 x 4.1 x 0.1 cm Musculoskeletal: Mild pain to palpation to full-thickness ulceration. No pain with calf compression. Debridement Note Debridement Note Debridement Free Text: Excisional debridement of the right leg lateral aspect full-thickness ulceration down to and including subcutaneous tissue with a number 7 mm dermal curette without incident. Predebridement measurement was 18.0 x 4.0 x 0.1 cm. 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 (Physician/BALLET MASTER/MISTRESS ) ) Arrival Mode Ambulatory Ambulatory Accompanied by self Patient Identification Verified (Name & Yes Yes ) Safety Precautions Fall Prevention Finger Stick Blood Sugar(mg/dl) (if 180 indicated): Blood Sugar Stated by Patient Height and Weight Body Mass Index (BMI) 44.6 44.6 BMI Classification Obese Obese Vital Signs Temperature (97.8 F-99.1 F) 97 F L Temperature Source Temporal Pulse Rate (60-100) 60 60 Pulse Location Monitor Monitor Respiratory Rate (12-18) 18 18 Respiratory rate source Observation Observation Oxygen Delivery Method Room Air Room Air Blood Pressure (90/60-120/80) 130/67 H 115/66 Blood Pressure Mean (mm Hg) 88 82 Source Monitor Monitor Position Sitting Sitting Blood Pressure Location Left Arm Left Arm History Since Last Visit- (Skip if this is Patient's initial visit) Have you changed medications since your No last visit? Any new allergies or adverse reactions No Had a fall/change in ADL's that may No increase risk of falls Signs or symptoms of abuse and/or No neglect since last visit Have you been in the hospital since your No last visit? Has dressing in place as prescribed Yes Yes Has compression in place as prescribed Yes Yes Has offloadiing in place as prescribed N/A Yes Experienced any changes in pain level or No Yes management Left Footwear Regular Shoe Diabetic Shoe Right Footwear Regular Shoe Diabetic Shoe Pain Scale: 0-10 Numeric Is Patient Pain Free? Yes Yes WC - Nurse 1 - General Ulcer Measurement Start: 07/19/24 08:30 Freq: Status: Active Protocol: Activity Type Activity Date Activity User E-sign Co-sign Detail Recorded Client Recorded Date Recorded By Document 07/19/24 08:30 KW [id number] 07/19/24 08:38 KW Document 07/26/24 08:58 MT [id number] 07/26/24 09:02 MT 07/19/24 07/26/24 08:30 08:58 Wound Center Nurse 1 #7 LT HEEL -Current Size (cm) - Length 0.1 0.1 -Current Size (cm) - Width 0.1 0.1 -Current Size (cm) - Depth 0.1 0.1 -Total Square Cm 0.01 0.01 -Date of Last Picture (Recall this 07/26/24 field) -Photo Taken Yes -Epithelialization Large 67-100% -Tunneling No -Undermining/Tunneling No -Circular Undermining No -Exudate Amt None Present -Wound Margin Distinct, Outline Attached -Texture (Mariza-wound Skin Appearance) Assessed -Moisture (Mariza-wound Skin Appearance) Assessed -Color (Mariza-wound Skin Appearance) Assessed -Temperature (Mariza-wound Skin No Abnormality Appearance) (Pt Warm) -Tenderness on Palpation (Mariza-wound No Skin Appearance) -Ulcer Cleansing Soap and Water -Foul Odor after Cleansing No -Anesthetic Used 4% Lidocaine Solution -Wound Comment(s) healed photo taken #5 RT LAT LE POST-OP -Current Size (cm) - Length 17.5 19.5 -Current Size (cm) - Width 4 4.5 -Current Size (cm) - Depth 0.1 0.1 -Total Square Cm 70.0 87.75 -Photo Taken No -Tunneling No -Undermining/Tunneling No -Circular Undermining No -Exudate Amt Medium -Exudate Type Serosanguineous -Wound Margin Distinct, Flat & Intact Outline Attached -Granulation Amt Large (67-100%) Large (67-100%) -Granulation Quality Red Pale,Piggott -Necrosis Amt None Present (0 %) -Texture (Mariza-wound Skin Appearance) Assessed Assessed -Moisture (Mariza-wound Skin Appearance) Assessed Assessed -Color (Mariza-wound Skin Appearance) Assessed Assessed -Temperature (Mariza-wound Skin No Abnormality No Abnormality Appearance) (Pt Warm) (Pt Warm) -Tenderness on Palpation (Mariza-wound No No Skin Appearance) -Ulcer Cleansing Soap and Water Soap and Water -Foul Odor after Cleansing No -Anesthetic Used 4% Lidocaine 4% Lidocaine Solution Solution Right Calf (cm) 36.5 Right Ankle (cm) 23.5 WC - Nurse 2 - General Ulcer CM Notes Start: 07/19/24 08:30 Freq: Status: Active Protocol: Activity Type Activity Date Activity User E-sign Co-sign Detail Recorded Client Recorded Date Recorded By Document 07/19/24 09:08 TALI [id number] 07/19/24 09:14 Document 07/26/24 09:19 [id number] 07/26/24 09:26 07/19/24 07/26/24 09:08 09:19 Wound Center Nurse 2 #7 LT HEEL -Correct Patient Yes No -Correct Side, Site, Position No No -Correct Procedure No No -Procedure Performed No No -Post Debridement (cm) - Length 0 -Post Debridement (cm) - Width 0 -Post Debridement (cm) - Depth 0 -Total Square (Post) (cm) 0 -Area of Debridement (cm) - Length 0 -Area of Debridement (cm) - Width 0 -Total Square (Area) (cm) 0 -Wound/Ulcer Outcome Not Healed Healed- Epithelialized #5 RT LAT LE POST-OP -Time 09:10 09:20 -Correct Patient Yes Yes -Correct Side, Site, Position Yes Yes -Correct Procedure Yes Yes -Procedure Performed Yes Yes -Type of Procedure Debridement Debridement -Clinical Debridement Subcutaneous Subcutaneous -Tissue Removed Subcutaneous Subcutaneous -Post Debridement (cm) - Length 18.2 18.2 -Post Debridement (cm) - Width 4.0 4.1 -Post Debridement (cm) - Depth 0.1 0.1 -Total Square (Post) (cm) 72.80 74.62 -Area of Debridement (cm) - Length 18.2 18.2 -Area of Debridement (cm) - Width 4.0 4.1 -Total Square (Area) (cm) 72.80 74.62 -Tunneling No No -Undermining/Tunneling No No -Circular Undermining No No -Wound/Ulcer Outcome Not Healed Not Healed -Ulcer Cleansing Rinsed/ Rinsed/ Irrigated with Irrigated with Saline Saline -Foul Odor after Cleansing No No -Bioengineered Tissue No No -Bleeding Controlled with Pressure Pressure -Treatment Response Procedure Procedure Tolerated Well Tolerated Well -Offloading No No -Debridement - Subq, 1st 20sq cm Yes Yes -Debridement, SubQ, ea addt'l 20sq cm 3 3 or part thereof Pain Scale: 0-10 Numeric Is Patient Pain Free? Yes Yes - Nurse 3 - General Ulcer D/C NN Start: 07/19/24 08:30 Freq: Status: Active Protocol: Activity Type Activity Date Activity User E-sign Co-sign Detail Recorded Client Recorded Date Recorded By Document 07/19/24 09:32 RB [id number] 07/19/24 09:33 RB Document 07/26/24 09:45 KW [id number] 07/26/24 09:48 KW 07/19/24 07/26/24 09:32 09:45 Wound Care Center Nurse 3 #7 LT HEEL -Primary Dressing Covered/Secured with Dry Gauze,Dry Gauze & Roll Gauze,Secured with Tape #5 RT LAT LE POST-OP -Ulcer Cleansing Rinsed/ Rinsed/ Irrigated with Irrigated with Saline Saline -Primary Dressing Applied Optilok 8x12, Promogran Page Matter -Primary Dressing Applied Optilok 8x12, Promogran Page Matter -Primary Dressing Covered/Secured with Secured with Tape -Optilok 8x12 1 1 -Promogran Page Matter 1 2 Right -Multi-Layered Wrap Application Multi-Layer Multi-Layer Comp - Right ($ Comp - Right ($ ) ) -Compression Wrap Celso Wrap Left -Compression Wrap Celso Wrap -Other celso 2 Treatment Response Procedure Tolerated Well Pain Scale: 0-10 Numeric Is Patient Pain Free? Yes Yes - Visit Discharge Discharge Condition Stable Stable Ambulatory Status Ambulatory Ambulatory Transportation Private Auto br[place]ley lawn Medication Reconcilliation completed & No No provided to patient/care provider Clinical Summary of Care Provided Yes Yes Assessment/Plan Assessment/Plan (1) Non-pressure chronic ulcer of other part of right lower leg with fat layer exposed: CODE(S): L97.812 - Non-pressure chronic ulcer of other part of right lower leg with fat layer exposed PLAN: Patient was examined and evaluated. All findings were discussed with the patient. All questions were answered to the patient's satisfaction. Excisional debridement of the right leg lateral aspect full-thickness ulceration down to and including subcutaneous tissue with a number 7 mm dermal curette without incident. Predebridement measurement was 18.0 x 4.0 x 0.1 cm. Postdebridement measurement was 18.2 x 4.1 x 0.1 cm The right lower extremities were cleaned and patted dry. Culture was taken to rule out any soft tissue infection secondary to getting the previous dressing wet, antibiotics will prescribe as needed. Page was applied to the full-thickness wound followed by a multilayer compression bandage that remain clean dry and intact until patient follow-up. Continued to educate the patient on strict blood sugar control. Follow-up at the wound care center with Dr. Shannon in 1 week. (2) Non-pressure chronic ulcer of left heel and 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: CODE(S): L97.422 - Non-pressure chronic ulcer of left heel and 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
--- NOTE | 2024-07-27 08:47 | WC ---
PHOTO 07/26/24 LEFT HEEL
== END 2024-08-11 23:59 | disposition home or self-care (01) ==
LOC: WC 08:45
PROVIDERS: Referring Provider Surgery; Visit Provider Podiatrist Foot & Ankle Surgery
DX: E11.621 Type 2 diabetes mellitus with foot ulcer (principal); E11.622 Type 2 diabetes mellitus with other skin ulcer; L97.422 Non-pressure chronic ulcer of left heel and 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; L97.812 Non-pressure chronic ulcer of other part of right lower leg with fat layer exposed
CPT/HCPCS: 11042; 11045; 29581; 87070; 87075; 87077; 87186; 87205

== ENCOUNTER 2024-08-30 08:45 | Outpatient (RCR) | payer MEDICARE, SELFPAY ==
[2024-08-12 02:17] VITALS: BP 115/66; PULSE 60; RESP 18; TEMP 36.1; BMI 44.6
[2024-08-16 08:42] VITALS: BP 158/73; PULSE 59; RESP 16; TEMP 37.7; BMI 44.6
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
[2024-08-30 08:36] VITALS: BP 148/80; PULSE 66; RESP 18; TEMP 36.5; BMI 44.6
--- NOTE | 2024-08-30 10:42 | PN.PCM_ITS ---
History of Present Illness Date of Service: 08/30/24 Chief Complaint: Right buttock ulceration History of Wound: Patient is 69-year-old male chronic ulceration to the lateral right leg stable with no sign of infection. Progress of Wound: Stable full-thickness wound lateral right leg. Subjective Subjective Mr. Gutierrez is a 69-year-old diabetic male presented wound care center today for follow-up evaluation of right lateral leg full-thickness wound. He has been getting dressing changes at the SNF as instructed. He admits some improvement to the wound. He is under the weather at this time and has the flu. He denies trauma. Denies constitutional symptoms. No other pedal complaints at this time. Objective Data Objective Data Vital Signs: Vital Signs Temp Pulse Resp BP O2 Del Method 97.7 F L 66 18 148/80 H Room Air 08/30/24 08:36 08/30/24 08:36 08/30/24 08:36 08/30/24 08:36 08/30/24 08:36 Oxygen Delivery Method Room Air Weight: 157.85 kg Body Mass Index (BMI) 44.6 Physical Exam Narrative Vascular: DP and PT pulses are palpable to the right lower extremity. Nonpitting edema appreciated to the right lower extremity. Skin temperature gradient is warm to warm from proximal ankles to distal digit. No focal increase appreciated. Evidence of varicosities appreciated left lower extremity. Neurological: Light touch intact. Patient response to painful stimuli. Protective sensation is diminished. Dermatological: Full-thickness ulceration to the lateral aspect of the right leg measuring 15.7 x 3.5 x 0.1 cm. Wound base is granular. No malodor or probe to bone. No sign of infection. Excisional debridement of the right leg lateral aspect full-thickness ulceration down to and including subcutaneous tissue with a number 7 mm dermal curette wi thout incident. Predebridement measurement was 15.0 x 3.2 x 0.1 cm. Postdebridement measurement was 15.7 x 3.5 x 0.1 cm. Musculoskeletal: Mild pain to palpation to full-thickness ulceration. No pain with calf compression. Debridement Note Debridement Note Debridement Free Text: Excisional debridement of the right leg lateral aspect full-thickness ulceration down to and including subcutaneous tissue with a number 7 mm dermal curette without incident. Predebridement measurement was 15.0 x 3.2 x 0.1 cm. Postdebridement measurement was 15.7 x 3.5 x 0.1 cm. Post-Debridement Measurements and Additional Note: Post-Debridement Measurements/Treatment WC - Nurse 1 - General Ulcer Assessment Start: 08/16/24 08:42 Freq: Status: Active Protocol: GALE Activity Type Activity Date Activity User E-sign Co-sign Detail Recorded Client Recorded Date Recorded By Document 08/16/24 08:42 CP [id number] 08/16/24 08:44 CP Document 08/30/24 08:36 KW [id number] 08/30/24 08:43 KW 08/16/24 08/30/24 08:42 08:36 WC - Today's Visit Information Type of service Follow-up Visit Follow-up Visit (Physician/ASSISTANT KITCHEN MANAGER (Physician/ASSISTANT KITCHEN MANAGER ) ) Arrival Mode Ambulatory Ambulatory Patient Identification Verified (Name & Yes Yes ) Patient Requires Transmission-Based No Precautions Safety Precautions NA Height and Weight Body Mass Index (BMI) 44.6 44.6 BMI Classification Obese Obese Vital Signs Temperature (97.8 F-99.1 F) 99.8 F H 97.7 F L Temperature Source Temporal Temporal Pulse Rate (60-100) 59 L 66 Pulse Location Monitor Monitor Respiratory Rate (12-18) 16 18 Respiratory rate source Observation Observation Oxygen Delivery Method Room Air Blood Pressure (90/60-120/80) 158/73 H 148/80 H Blood Pressure Mean (mm Hg) 101 102 Source Monitor Monitor Position Sitting Sitting Blood Pressure Location Left Arm Left Arm History Since Last Visit- (Skip if this is Patient's initial visit) Have you changed medications since your Yes No last visit? Any new allergies or adverse reactions No No Had a fall/change in ADL's that may No No increase risk of falls Signs or symptoms of abuse and/or No No neglect since last visit Have you been in the hospital since your Yes No last visit? Has dressing in place as prescribed Yes Yes Has compression in place as prescribed Yes Yes Has offloadiing in place as prescribed N/A N/A Experienced any changes in pain level or No No management Left Footwear Regular Shoe Right Footwear Regular Shoe Pain Scale: 0-10 Numeric Is Patient Pain Free? Yes Yes CODY - Nurse 1 - General Ulcer Measurement Start: 08/16/24 08:42 Freq: Status: Active Protocol: Activity Type Activity Date Activity User E-sign Co-sign Detail Recorded Client Recorded Date Recorded By Document 08/16/24 08:42 CP [id number] 08/16/24 08:44 CP Document 08/30/24 08:36 KW [id number] 08/30/24 08:43 KW 08/16/24 08/30/24 08:42 08:36 Wound Center Nurse 1 #5 RT LAT LE POST-OP -Current Size (cm) - Length 15.8 16 -Current Size (cm) - Width 3.5 3.8 -Current Size (cm) - Depth 0.1 0.2 -Total Square Cm 55.30 60.8 -Date of Last Picture (Recall this 08/30/24 field) -Epithelialization Medium 34-66% -Exudate Amt Small Medium -Exudate Type Serosanguineous Serosanguineous -Wound Margin Flat & Intact Distinct, Outline Attached -Granulation Amt Large (67-100%) Large (67-100%) -Granulation Quality Red Red -Slough/Fibrin Yes -Necrosis Amt Small (1-33%) -Necrotic Tissue Type Adherent Slough -Structure Exposed N/A -Texture (Mariza-wound Skin Appearance) No Abnormality Assessed -Moisture (Mariza-wound Skin Appearance) No Abnormality Assessed -Color (Mariza-wound Skin Appearance) No Abnormality Assessed, Hemosiderin Staining -Temperature (Mariza-wound Skin No Abnormality No Abnormality Appearance) (Pt Warm) (Pt Warm) -Tenderness on Palpation (Mariza-wound No No Skin Appearance) -Ulcer Cleansing Soap and Water Soap and Water -Foul Odor after Cleansing No No -Anesthetic Used 5% Lidocaine 4% Lidocaine Gel Solution Right Calf (cm) 41.2 Right Ankle (cm) 27 WC - Nurse 2 - General Ulcer CM Notes Start: 08/16/24 08:42 Freq: Status: Active Protocol: Activity Type Activity Date Activity User E-sign Co-sign Detail Recorded Client Recorded Date Recorded By Document 08/16/24 09:04 TALI [id number] 08/16/24 09:07 JF Document 08/30/24 09:08 JF [id number] 08/30/24 09:12 JF 08/16/24 08/30/24 09:04 09:08 Wound Center Nurse 2 #5 RT LAT LE POST-OP -Time 09:04 09:09 -Correct Patient Yes Yes -Correct Side, Site, Position Yes Yes -Correct Procedure Yes Yes -Procedure Performed Yes Yes -Type of Procedure Debridement Debridement -Clinical Debridement Subcutaneous Subcutaneous -Tissue Removed Subcutaneous Subcutaneous -Post Debridement (cm) - Length 15.4 15.7 -Post Debridement (cm) - Width 3.5 3.5 -Post Debridement (cm) - Depth 0.1 0.1 -Total Square (Post) (cm) 53.90 54.95 -Area of Debridement (cm) - Length 15.4 15.7 -Area of Debridement (cm) - Width 3.5 3.5 -Total Square (Area) (cm) 53.90 54.95 -Tunneling No No -Undermining/Tunneling No No -Circular Undermining No No -Wound/Ulcer Outcome Not Healed Not Healed -Ulcer Cleansing Rinsed/ Rinsed/ Irrigated with Irrigated with Saline Saline -Foul Odor after Cleansing No No -Bioengineered Tissue No No -Bleeding Controlled with Pressure Pressure -Treatment Response Procedure Procedure Tolerated Well Tolerated Well -Offloading No No -Debridement - Subq, 1st 20sq cm Yes Yes -Debridement, SubQ, ea addt'l 20sq cm 2 2 or part thereof Pain Scale: 0-10 Numeric Is Patient Pain Free? Yes Yes - Nurse 3 - General Ulcer D/C NN Start: 08/16/24 08:42 Freq: Status: Active Protocol: Activity Type Activity Date Activity User E-sign Co-sign Detail Recorded Client Recorded Date Recorded By Document 08/16/24 09:14 KW [id number] 08/16/24 09:15 KW Document 08/30/24 09:30 RB [id number] 08/30/24 09:31 RB 08/16/24 08/30/24 09:14 09:30 Wound Care Center Nurse 3 #5 RT LAT LE POST-OP -Ulcer Cleansing Rinsed/ Irrigated with Saline -Primary Dressing Applied Promogran Promogran Page Matter Page Matter -Other Dressing abd -Primary Dressing Covered/Secured with Dry Gauze & Dry Gauze & Roll Gauze, Roll Gauze, Secured with Secured with Tape Tape -Promogran Page Matter 2 2 Right -Compression Wrap Celso Wrap -Other 2 BLE -Other celso Treatment Response Procedure Tolerated Well Pain Scale: 0-10 Numeric Is Patient Pain Free? Yes Yes - Visit Discharge Discharge Condition Stable Stable Ambulatory Status Ambulatory Ambulatory Transportation Private Auto Private Auto Medication Reconcilliation completed & No No provided to patient/care provider Clinical Summary of Care Provided Yes Yes Assessment/Plan Assessment/Plan (1) Non-pressure chronic ulcer of other part of right lower leg with fat layer exposed: CODE(S): L97.812 - Non-pressure chronic ulcer of other part of right lower leg with fat layer exposed PLAN: Patient was examined and evaluated. All findings were discussed with the patient. All questions were answered to the patient's satisfaction. Excisional debridement of the right leg lateral aspect full-thickness ulceration down to and including subcutaneous tissue with a number 7 mm dermal curette without incident. Predebridement measurement was 15.0 x 3.2 x 0.1 cm. Cm. Postdebridement measurement was 15.7 x 3.5 x 0.1 cm. Right lower extremities were cleaned and patted dry. Moist Page was applied to the full-thickness wound to the right leg followed by dry sterile dressing and compression wrap. Patient will have the dressing changed every other day. Encouraged the patient to ambulate as tolerated and continue to elevate his leg whenever at rest. He was understanding of this. Follow-up at the wound care center with Dr. Shannon in 2 week. (2) Other specified peripheral vascular diseases: CODE(S): I73.89 - Other specified peripheral vascular diseases
--- NOTE | 2024-08-30 14:39 | WC ---
PHOTO 08/30/24 Right Lat LE
== END 2024-09-08 23:59 | disposition home or self-care (01) ==
LOC: WC 08:45
PROVIDERS: Referring Provider Surgery; Visit Provider Podiatrist Foot & Ankle Surgery
DX: E11.622 Type 2 diabetes mellitus with other skin ulcer (principal); E11.621 Type 2 diabetes mellitus with foot ulcer; L97.812 Non-pressure chronic ulcer of other part of right lower leg with fat layer exposed; L97.429 Non-pressure chronic ulcer of left heel and midfoot with unspecified severity; E11.51 Type 2 diabetes mellitus with diabetic peripheral angiopathy without gangrene; J11.1 Influenza due to unidentified influenza virus with other respiratory manifestations
CPT/HCPCS: 11042; 11045

== ENCOUNTER 2024-09-16 19:52 | Emergency (ER) | payer MEDICARE, SELFPAY ==
[2024-09-16] VITALS (19 sets, daily range): BP systolic 138–171; BP diastolic 70–89; PULSE 50–61; RESP 14–19; TEMP 36.7–36.9; O2SAT 95–98; BMI 42.5
--- NOTE | 2024-09-16 20:06 | CT_ITS ---
PROCEDURE: BRAIN/HEAD WITHOUT CONTRAST REASON FOR EXAM: Status post fall. On Eliquis TECHNIQUE: Head CT without intravenous contrast. COMPARISON: CT brain dated 01/06/2024 FINDINGS: There is no acute intracranial hemorrhage, mass effect, or evidence of large acute infarct. Brain: Within normal limits for age CSF Spaces: Mild generalized cerebral atrophy Sinuses/Mastoids: Opacification of the left maxillary sinus. Bones: Unremarkable CT/Brain/Head without Contrast IMPRESSION: NO ACUTE FINDINGS One or more dose reduction techniques were used (e.g., Automated exposure contr ol, adjustment of the mA and/or kV according to patient size, use of iterative reconstruction technique). Reading Location: [facility]
--- NOTE | 2024-09-16 20:07 | EKG12_ITS ---
Test Reason : FALL Blood Pressure : */* mmHG Vent. Rate : 53 BPM Atrial Rate : * BPM P-R Int : * ms QRS Dur : 116 ms QT Int : 412 ms P-R-T Axes : * 66 2 degrees QTcB Int : 386 ms Marked sinus bradycardia Nonspecific ST and T wave abnormality Abnormal ECG poor tracing may effect accuracy Confirmed by Amarjit Soliman ([id number]), editorial specialist JOE ABREU ([id number]) on 09/18/2024 10:48:10 AM Referred By: Confirmed By: Amarjit Soliman
--- NOTE | 2024-09-16 20:10 | CT_ITS ---
PROCEDURE: ABDOMEN/PELVIS W IV CONT ONLY REASON FOR EXAM: Left lower quadrant abdominal pain TECHNIQUE: Abdomen and pelvis CT with intravenous contrast. No oral contrast. IV CONTRAST: COMPARISON: None. FINDINGS: Lung bases: Bibasilar atelectasis. Heart size is normal. No pericardial effusion. Liver: Unremarkable. Gallbladder: Decompressed gallbladder with multiple layering gallstones. Spleen: Unremarkable. Pancreas: Unremarkable. Adrenals: 1.6 cm indeterminate left adrenal nodule. Right adrenal gland is grossly unremarkable. Kidneys: Multiple bilateral exophytic low attenuating lesions, compatible with benign cyst. However, the left kidney demonstrates 5.6 cm enhancing exophytic mass within the lower pole and a slightly dense exophytic cystic lesion within the upper pole measuring 6 cm. Please see recommendations below. Bladder: Urinary bladder is completely decompressed secondary to a Cohen catheter. Suspected urinary bladder wall thickening, please correlate with urinalysis. Reproductive Organs: Unremarkable. Bowel: Evaluation of the bowel loops are limited due to lack of oral contrast. The stomach is grossly unremarkable. No inflammatory changes of the small bowel. Mild stool burden within the rectosigmoid colon. Appendix: Normal. Lymph nodes: No suspicious lymph node enlargement. Vasculature: Mild diffuse atherosclerotic calcifications are noted. Peritoneum / Retroperitoneum: No ascites. No free air. Soft tissues: Status post right inguinal hernia repair. There is a small right inguinal hernia containing a focal part of the anterior urinary bladder wall. Bones: Degenerative changes of the spine. CT/Abdomen/Pelvis W IV Cont ONLY IMPRESSION: Decompressed urinary bladder with suspected urinary bladder wall thickening, pl ease correlate with urinalysis. In addition focal portion of the anterior urinary bladder wall is identified within a right ingui nal hernia. Mild stool burden within the rectosigmoid colon. No inflammatory changes of th e bowel loops. 5.6 cm exophytic enhancing left renal mass and a 6 mm slightly dense exophytic left renal cystic lesion. MRI versus CT of the kidneys with and without contrast is recommended for further characterization. 1.6 cm indeterminate left adrenal nodule. MRI of the adrenal glands is recomme nded for further characterization. One or more dose reduction techniques were used (e.g., Automated exposure contr ol, adjustment of the mA and/or kV according to patient size, use of iterative reconstruction technique). Reading Location: [facility]
--- NOTE | 2024-09-16 20:10 | EDS_ITS ---
HPI History of Present Illness Chief Complaint: Fall Detail of Chief Complaint: Fall and generalized weakness Informant: patient Narrative Narrative: Patient presents to the emergency department from [facility] after sustaining a fall today. It was unclear if he passed out and fell or if he fell and got knocked unconscious. Apparently the fall was witnessed and it was not believed that the patient hit his head. Patient states that he just feels very weak. He had the flu 3 weeks ago. He does describe some dysuria. Apparently had some blood in his urine. He has an indwelling Cohen catheter. He is on Eliquis. He denies significant cough. He said no vomiting or diarrhea. [facility] Medical History MRSA (methicillin resistant staph aureus) culture positive Lives in [place] [facility] Wears dentures Depression Anxiety Walker as ambulation aid Ambulates with cane Headache Shortness of breath on exertion Cardiology follow-up encounter History of renal disease Insulin dependent diabetes mellitus Pressure ulcer Abscess Indwelling urethral catheter present Acute painful diabetic polyneuropathy Cancer Former smoker CPAP (continuous positive airway pressure) dependence On home oxygen therapy Pulmonary embolism COPD (chronic obstructive pulmonary disease) Myocardial infarct DVT (deep venous thrombosis) Anemia Ulcer with necrosis of muscle Lymphedema of left lower extremity Lymphedema of right lower extremity Edema of left lower leg Edema of right lower leg Left leg swelling Right leg swelling Chronic venous insufficiency Non-pressure ulcer of right lower extremity with necrosis of muscle BPH (benign prostatic hyperplasia) Atrial fibrillation Blood loss anemia Hypertension Hiatal hernia Diverticulosis Debility Morbid obesity with BMI of 40.0-44.9, adult Impaired mobility SOB (shortness of breath) Heart murmur Heart failure 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 2 diabetes mellitus Aortic valve disease Renal mass, left History of DVT (deep vein thrombosis) Valvular heart disease Atrial fibrillation/flutter Chronic acquired lymphedema Chronic anemia Venous insufficiency (chronic) (peripheral) Ulcer of left lower extremity with fat layer exposed Superficial thrombosis of left lower extremity Peripheral vascular disease of lower extremity with ulceration Sleep apnea Morbid obesity DM2 (diabetes mellitus, type 2) Benign essential HTN Home Medications ?Medication ?Instructions ?Recorded ?Last Taken ?Type aspirin 81 mg tablet,delayed 81 mg PO DAILY 03/17/19 U nknown History release amlodipine 5 mg tablet 5 mg PO DAILY 10/28/23 Unkno wn History apixaban 5 mg tablet (Eliquis) 5 mg PO BID 10/28/23 Un known History atorvastatin 20 mg tablet 20 mg PO QHS 10/28/23 Unknow n History melatonin 3 mg tablet 6 mg PO QHS 10/28/23 Unknown History tamsulosin 0.4 mg capsule 0.4 mg PO QHS 12/22/23 Unkno wn History acetaminophen 325 mg tablet 650 mg PO Q4H PRN pain Unknown History (Tylenol) cyanocobalamin (vitamin B-12) 500 mcg PO DAILY 4 Unknown History 1,000 mcg capsule insulin glargine 100 unit/mL (3 26 unit subcut DAILY 1 08/01/23 Unknown History mL) subcutaneous pen (Lantus Solostar U-100 Insulin) donepezil 5 mg tablet 5 mg PO QHS 08/16/24 Unknown History gabapentin 100 mg capsule 200 mg PO TID 08/16/24 Unkno wn History insulin lispro 100 unit/mL 1 unit subcut TID 08/16/24 Unknown History subcutaneous pen (Humalog KwikPen (U-100) Insulin) lurasidone 40 mg tablet 40 mg PO QPM 08/16/24 Unknow n History potassium chloride 10 mEq 10 meq PO BID 08/16/24 Unkno wn History capsule,extended release torsemide 20 mg tablet 20 mg PO BID 08/16/24 Unknow n History budesonide-formoterol HFA 160 1 puff inhalation DAILY 09/16/24 Unknown History mcg-4.5 mcg/actuation aerosol inhaler (Symbicort) lactulose 20 gram/30 mL oral 30 ml PO DAILY 09/16/24 U nknown History solution sodium chloride 0.9 % nasal 2 ml intranasal TID Unknown History solution trazodone 100 mg tablet 100 mg PO QHS insomnia 09/16 Unknown History Allergy/AdvReac Type Severity Reaction Status Date / Time ibuprofen (From Nuprin) Allergy Unknown Verified 06/01/24 11:58 Family History Mother Diabetes Father Cirrhosis of liver Alcoholism Surgical History History of incision and drainage History of embolic filter insertion History of right inguinal hernia repair H/O colectomy History of repair of inguinal hernia History of bladder surgery History of tonsillectomy and adenoidectomy History of right inguinal hernia repair S/P AVR (aortic valve replacement) Social History housing: [facility] Smoking Status: Former smoker how long ago did patient quit smoking: Quit ~ 20 yrs prior, smoked age 15 until quit ~ 2 ppd. alcohol intake: never substance use type: does not use ROS ROS ED Review of Systems ROS Unobtainable: other Constitutional Constitutional ED: Reports lethargy; Denies chills, fever(s), sweats or weight loss Eyes Eyes: Denies blurry vision, change in vision or diplopia ENT ENT ED: Denies rhinorrhea or sore throat Cardiovascular Cardiovascular: Denies chest pain, orthopnea or racing heartbeat Respiratory/Chest Respiratory/Chest: Denies cough, dyspnea, dyspnea on exertion, orthopnea or sputum Gastrointestinal Gastrointestinal: Denies abdominal pain, diarrhea, nausea or vomiting Genitourinary Genitourinary ED: Denies dysuria, hematuria or urinary frequency Musculoskeletal Musculoskeletal: Denies arthralgias, back pain, myalgias or neck pain Integumentary Denies abscess, Abrasions or rash Neurologic Neurologic: Reports weakness; Denies headache(s) Psychiatric Psychiatric: Denies anxiety, depression or suicidal thoughts Endocrine Endocrinology: Denies polydipsia, polyphagia or polyuria Hematologic/Lymphatic Hematologic/Lymphatic: Denies easy bleeding, easy bruising or lymphadenopathy Allergic/Immunologic Allergic/Immunologic ED: Denies mouth swelling, tongue swelling or urticaria EXAM Physical Exam Const Vital Signs: 09/16/24 19:54 09/16/24 20:04 09/16/24 21:02 Temperature 98.4 F 98.0 F Temperature Source Oral Oral Pulse Rate 56 L 50 L Respiratory Rate 18 17 Respiratory Effort Normal Blood Pressure 163/72 H 152/71 H Blood Pressure Mean 102 98 Pulse Ox 98 96 Oxygen Delivery Method Room Air Room Air Room Air Positive well nourished and well developed General Appearance ED: well developed and NAD HEENT Reports TM's clear and moist mucous membranes HEENT Narrative: No external evidence of trauma to his head. normocephalic and atraumatic; Negative for trauma or tenderness Tympanic Membrane ED: Yes TM's clear Eyes PERRL and EOMs intact bilaterally General Eye ED: Negative for pale conjunctiva or scleral icterus Neck no lymphadenopathy, supple and no JVD General: Negative for tenderness Chest Wall inspection of chest normal and palpation of chest normal Chest: Negative for tenderness Resp normal respiratory effort and clear to auscultation bilaterally Effort and Inspection: Negative for respiratory distress or pain with movement Auscultation: Negative for rhonchi, wheezes or diminished lung sounds Cardio regular rate, regular rhythm, S1 normal heart sound, S2 normal heart sound and no murmurs Peripheral Pulses: pulses 2+ throughout GI normal to inspection, nondistended, normoactive bowel sounds, soft to palpation, non-tender, non-distended and no masses Back/Spine no CVA tenderness and no thoracic nor lumbar tenderness Extremity normal to inspection Extremity Narrative: Chronic wound noted to the right lateral calf. Some purulent drainage noted from it. No significant cellulitic changes neurovascular intact distally General Extremety ED: Negative for edema General Extremity: Negative for edema Neuro oriented x3, CN's II-XII intact bilaterally, no sensory deficits noted and gait normal Sensorium / Orientation: awake, alert, oriented to person, oriented to place and oriented to time Motor Exam: strength 5/5 throughout and strength abnormal Psych mental status grossly normal Skin no rashes or lesions noted and no wounds Skin Narrative: Chronic venous stasis wounds both lower extremities. Both legs were wrapped initially. MDM MDM MDM Narrative Medical decision making narrative: Patient presents with generalized weakness and a fall. Multiple chronic medical conditions from [facility]. Has indwelling Cohen catheter in place. IV line established. CBC with differential count 7.3 with hemoglobin 12.3 and platelet count of 205. Urinalysis positive for UTI. Blood cultures ordered urine culture ordered. Patient started on Rocephin 1 g IV. Chemistries pending. I ordered imaging of the CT scan of the brain as well as C-spine and CT of abdomen pelvis to evaluate further. Patient has left lower quadrant abdominal pain on exam. Care of patient will be turned over to evening physician awaiting lab results as well as CT imaging and final disposition. Lab Data Attestation: I reviewed the patient's lab results. Labs: Laboratory Results - last 24 hr 09/16/24 09/16/24 20:05 20:31 WBC 7.3 RBC 4.44 L Hgb 12.3 L Hct 38.2 L MCV 86.0 MCH 27.7 MCHC 32.2 RDW Std Deviation 51.2 H RDW Coeff of Carlito 16.2 H Plt Count 205 MPV 11.9 Immature Gran % (Auto) 0.300 Neut % (Auto) 63.1 Lymph % (Auto) 22.5 [place] % (Auto) 9.6 Eos % (Auto) 4.0 Baso % (Auto) 0.5 Absolute Neuts (auto) 4.6 Absolute Lymphs (auto) 1.64 Nucleated RBC % 0 Lactic Acid 1.2 Urine Color Yellow Urine Clarity Turbid Urine pH 8.0 Ur Specific Sodus 1.010 Urine Protein 30 H Urine Glucose (UA) Normal Urine Ketones Negative Urine Occult Blood 150 H Urine Nitrite Positive H Urine Bilirubin Negative Urine Urobilinogen Normal Ur Leukocyte Esterase 500 H Urine RBC 0-5 SEEN Urine WBC 50-100 SEEN Ur Squamous Epith Cells 0 SEEN Triple Phos Crystals 2+ Urine Bacteria 4+ Urine Mucus 3+ Discharge Plan Triage Chief Complaint: Fall ED Provider: Juan Cunha Dx/Rx/DC Orders Prescriptions: No Action tamsulosin 0.4 mg capsule 0.4 mg PO QHS aspirin 81 MG tablet,delayed release (DR/EC) 81 mg PO DAILY atorvastatin 20 mg tablet 20 mg PO QHS amlodipine 5 mg tablet 5 mg PO DAILY Eliquis 5 mg tablet 5 mg PO BID melatonin 3 mg tablet 6 mg PO QHS acetaminophen [Tylenol] 325 mg tablet 650 mg PO Q4H PRN (Reason: pain) insulin glargine [Lantus Solostar U-100 Insulin] 100 unit/mL (3 mL) insulin pen 26 unit subcut DAILY Rx Instructions: sliding scale cyanocobalamin (vitamin B-12) 1,000 mcg capsule 500 mcg PO DAILY donepezil 5 mg tablet 5 mg PO QHS gabapentin 100 mg capsule 200 mg PO TID insulin lispro [Humalog KwikPen Insulin] 100 unit/mL insulin pen 1 unit subcut TID Patient Comments: sliding scale Rx Instructions: sliding scale lurasidone 40 mg tablet 40 mg PO QPM Rx Instructions: must administer with food (at least 350 calories) potassium chloride 10 mEq capsule, extended release 10 meq PO BID torsemide 20 mg tablet 20 mg PO BID lactulose 20 gram/30 mL solution 30 ml PO DAILY budesonide-formoterol [Symbicort] 160-4.5 mcg/actuation HFA aerosol inhaler 1 puff inhalation DAILY sodium chloride 0.9 % solution 2 ml intranasal TID trazodone 100 mg tablet 100 mg PO QHS Primary Care Provider: Gregg Reyna Referrals: Gregg Reyna DO [Primary Care Provider] - Print Language: Thai
--- NOTE | 2024-09-16 20:13 | CT_ITS ---
PROCEDURE: SPINE CERVICAL WITHOUT CONTRAS REASON FOR EXAM: Status post fall TECHNIQUE: Cervical spine CT without contrast. COMPARISON: None. FINDINGS: Alignment: Straightening of the cervical alignment likely due to positioning. Vertebrae: No acute fracture or subluxation. Mild anterior vertebral body osteophyte formation. Discs: Mild multilevel narrowing of the intervertebral disc spaces. Soft Tissues: No large prevertebral hematoma CT/Spine Cervical without Contras IMPRESSION: NO ACUTE CERVICAL FRACTURE. DEGENERATIVE CHANGES. One or more dose reduction techniques were used (e.g., Automated exposure contr ol, adjustment of the mA and/or kV according to patient size, use of iterative reconstruction technique). Reading Location: [facility]
[2024-09-16 20:32] LABS: Absolute Lymphocyte Count 1.64 X10^3/uL (0.83-4.51); Absolute Neutrophil Count 4.6 X10^3/uL (2.0-7.7); Basophil# 0.04 X10^3/uL; Basophil% 0.5 % (0-1); Eosinophil# 0.29 X10^3/uL; Hematocrit 38.2 % (40-54); Hemoglobin 12.3 g/dL (13.0-16.5); Lymphocyte # 1.64 X10^3/ul (0.83-4.51); Lymphocyte % 22.5 % (19-41); Mean Corp Hgb Conc 32.2 g/dL (32-36); Mean Corpuscular Hgb 27.7 pg (27.0-32.0); Mean Platelet Vol. 11.9 fl (6.2-12.0); Monocyte% 9.6 % (0-10); NRBC Flagged by Analyzer 0 % (0-5); Neutrophil % 63.1 % (47-70); Platelet Count 205 K/mm3 (150-450); RBC Distribution Width CV 16.2 % (11.6-14.6); RBC Distribution Width SD 51.2 fl (35.1-43.9); Red Blood Count 4.44 M/mm3 (4.6-6.2); White Blood Count 7.3 K/mm3 (4.4-11.0)
[2024-09-16] MEDS: 0.9% Normal Saline (1000mL) 1,000 ML 1000 ML IV (20:35)
[2024-09-16 20:38] LABS: Squamous Epithelial Cells - UA 0 SEEN /hpf (0-5)
[2024-09-16 20:51] LABS: Lactic Acid 1.2 mmol/L (0.0-2.0)
[2024-09-16 20:59] LABS: Color, Urine Yellow (Yellow); Glucose, Dipstick Normal (Normal); Ketone-Dipstick Negative (Negative); Leukocyte Esterase-Dipstick 500 /ul (Negative); Nitrite-Dipstick Positive (Negative); Occult Blood-Urine 150 /ul (Negative); Protein-Dipstick 30 mg/dl (Negative); Urine Bilirubin Dipstick Negative (Negative); Urine Clarity Turbid (Clear); Urine Urobilinogen Normal (Normal)
[2024-09-16 21:08] LABS: Bacteria 4+ /hpf (None Seen); Mucous, Urine 3+ /hpf (<or=2+); Red Blood Cells-Urine 0-5 SEEN /hpf (0-5); Triple Phosphate Crystals Ur 2+ /hpf (<or=1+); White Blood Cells 50-100 SEEN /hpf (0-5)
[2024-09-16] MEDS: Ceftriaxone 1 GM/50 ML BAG IV (21:24)
[2024-09-16 22:01] LABS: Anion Gap 10 (5-15); BUN 28 mg/dL (4-19); Calcium,Total 9.2 mg/dL (7.6-11.0); Carbon Dioxide 26.6 mmol/L (21.0-32.0); Chloride 103 mmol/L (98-108); Creatinine, Serum 1.46 mg/dL (0.70-1.20); EST Glomerular Filtration Rate 52 (>60); Estimated Creatinine Clearance 63.94 ml/min (50-250); Glucose 179 mg/dL (70-99); Potassium 4.7 mmol/L (3.3-5.1); Sodium Level 140 mmol/L (133-145)
--- NOTE | 2024-09-16 22:20 | RAD_ITS ---
PROCEDURE: CHEST 1 VIEW (PORTABLE) REASON FOR EXAM: Weakness TECHNIQUE: Frontal view of the chest. COMPARISON: Chest radiograph dated 01/04/2024 FINDINGS: Sternotomy wires are present. The heart size is normal. The lungs are clear. Degenerative changes are identified within the thoracic spine. RAD/Chest 1 View (Portable) IMPRESSION: No focal consolidation. Reading Location: [facility]
--- NOTE | 2024-09-16 23:57 | ED.RN ---
Reapplied Bacitracin,Telfa applied and covered with Kerlex and Celso wrap.Pt angry and asking why his oozing wound was covered. They are going to just pull it off once I get back to the detention. You don't know what you are doing. Advised the pt that this dressing will be adequate and it is an appropriate dressing. Pt is defensive to care and not pleased to find out that the doctor wants him to ambulate. Pt stated, Had I known you were going to make me walk,I would not have come.Empathy given.
--- NOTE | 2024-09-16 23:58 | ED.RN ---
Pt was very reluctant to ambulate stating they were afraid that they were going to fall. After encouraging the patient, they were able to ambulate at the side of the bed with a walker. Pt also stated they do not like staying at [facility] because, they do not listen to me, just like you.
[2024-09-17] VITALS: BP 155/73; PULSE 58; RESP 17; O2SAT 96
[2024-09-17 00:15] VITALS: BP 163/75; PULSE 58; RESP 16; O2SAT 97
--- NOTE | 2024-09-17 00:18 | ED.RN ---
Patient called out and this nurse tech went into the patient's room. Patient stated that the leg that we applied a wound dressing to is hurting. This nurse tech informed the patient that the dressing is going to be a little uncomfortable. The patient then stated in an agitated tone that, he does not want to lose his leg because you guys don't know how to do your damn job! Dr. Odonnell confirmed that the dressing and antibiotic ointment will not cause the patient to lose their leg.
[2024-09-17 00:30] VITALS: BP 141/71; PULSE 55; PULSE 57; RESP 17; RESP 18; TEMP 35.5; O2SAT 96; O2SAT 98
[2024-09-17 00:45] VITALS: BP 142/66; PULSE 56; RESP 16; O2SAT 95
[2024-09-17 01:00] VITALS: BP 146/70; PULSE 57; RESP 17; O2SAT 95
== END 2024-09-17 03:06 | disposition home or self-care (01) ==
PROVIDERS: Emergency Provider Emergency Medicine; PCP Internal Medicine; Visit Provider Emergency Medicine
DX: N39.0 Urinary tract infection, site not specified (principal); E11.622 Type 2 diabetes mellitus with other skin ulcer; L97.422 Non-pressure chronic ulcer of left heel and 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; L97.412 Non-pressure chronic ulcer of right heel and 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; N18.4 Chronic kidney disease, stage 4 (severe); I13.0 Hypertensive heart and chronic kidney disease with heart failure and stage 1 through stage 4 chronic kidney disease, or unspecified chronic kidney disease; I50.9 Heart failure, unspecified; J44.9 Chronic obstructive pulmonary disease, unspecified; E11.22 Type 2 diabetes mellitus with diabetic chronic kidney disease; Z79.4 Long term (current) use of insulin; E11.42 Type 2 diabetes mellitus with diabetic polyneuropathy; E11.51 Type 2 diabetes mellitus with diabetic peripheral angiopathy without gangrene; N28.1 Cyst of kidney, acquired; E27.9 Disorder of adrenal gland, unspecified; B96.4 Proteus (mirabilis) (morganii) as the cause of diseases classified elsewhere; B96.89 Other specified bacterial agents as the cause of diseases classified elsewhere; W19.XXXA Unspecified fall, initial encounter; Y92.129 Unspecified place in nursing home as the place of occurrence of the external cause; F32.A Depression, unspecified; F41.9 Anxiety disorder, unspecified; I25.2 Old myocardial infarction; I35.0 Nonrheumatic aortic (valve) stenosis; N40.0 Benign prostatic hyperplasia without lower urinary tract symptoms; G47.30 Sleep apnea, unspecified; Z96.0 Presence of urogenital implants; Z95.2 Presence of prosthetic heart valve; Z79.01 Long term (current) use of anticoagulants; Z86.14 Personal history of Methicillin resistant Staphylococcus aureus infection; Z79.82 Long term (current) use of aspirin; Z87.891 Personal history of nicotine dependence; Z86.711 Personal history of pulmonary embolism; Z86.718 Personal history of other venous thrombosis and embolism; Z79.899 Other long term (current) drug therapy
CPT/HCPCS: 36415; 70450; 71045; 72125; 74177; 80048; 81001; 83605; 85025; 87040; 87077; 87086; 87088; 87186; 87631; 93005; 96361; 96365; 99285; Q9967; A4216

== ENCOUNTER 2024-09-27 09:00 | Outpatient (RCR) | payer MEDICARE, SELFPAY ==
[2024-09-09 02:27] VITALS: BP 148/80; PULSE 66; RESP 18; TEMP 36.5; BMI 44.6
[2024-09-13 08:39] VITALS: BP 152/59; PULSE 58; RESP 15; TEMP 36.2; BMI 44.6
--- NOTE | 2024-09-13 10:08 | PN.PCM_ITS ---
History of Present Illness Date of Service: 10/11/24 Chief Complaint: Right buttock ulceration History of Wound: Patient is 69-year-old male chronic ulceration to the lateral right leg stable with no sign of infection. Progress of Wound: Stable slow healing wound right lateral leg. Subjective Subjective Mr. Gutierrez is a 69-year-old diabetic male presented wound care center today for follow-up evaluation of full-thickness wound to lateral right leg. He is getting dressing changes every other day at the nursing facility. He denies any pain to the right lower extremity. He is getting wrapped and cleaned as instructed. Blood sugars well-controlled. He denies any trauma. Denies constitutional symptoms. No other pedal complaints at this time. Objective Data Objective Data Vital Signs: Vital Signs Temp Pulse Resp BP 97.1 F L 58 L 15 152/59 H 09/13/24 08:39 09/13/24 08:39 09/13/24 08:39 09/13/24 08:39 Weight: 157.85 kg Body Mass Index (BMI) 44.6 Physical Exam Narrative Vascular: DP and PT pulses are palpable to the right lower extremity. Nonpitting edema appreciated to the right lower extremity. Skin temperature gradient is warm to warm from proximal ankles to distal digit. No focal increase appreciated. Evidence of varicosities appreciated left lower extremity. Neurological: Light touch intact. Patient response to painful stimuli. Protective sensation is diminished. Dermatological: Full-thickness ulceration to the lateral aspect of the right leg measuring 14.8 x 3.4 x 0.1 cm. Wound base is granular. No malodor or probe to bone. No sign of infection. Excisional debridement of the right leg lateral aspect full-thickness ulceration down to and including subcutaneous tissue with a number 7 mm dermal curette without incident. Predebridement measurement was 14.6 x 3.2 x 0.1 cm. Postdebridement measurement was 14.8 x 3.4 x 0.1 cm. Musculoskeletal: Mild pain to palpation to full-thickness ulceration. No pain with calf compression. Debridement Note Debridement Note Debridement Free Text: Excisional debridement of the right leg lateral aspect full-thickness ulceration down to and including subcutaneous tissue with a number 7 mm dermal curette without incident. Predebridement measurement was 14.6 x 3.2 x 0.1 cm. Postdebridement measurement was 14.8 x 3.4 x 0.1 cm. Post-Debridement Measurements and Additional Note: Post-Debridement Measurements/Treatment - Nurse 1 - General Ulcer Assessment Start: 09/13/24 08:39 Freq: Status: Active Protocol: GALE Activity Type Activity Date Activity User E-sign Co-sign Detail Recorded Client Recorded Date Recorded By Document 09/13/24 08:39 ML [id number] 09/13/24 08:43 ML 09/13/24 08:39 WC - Today's Visit Information Type of service Follow-up Visit (Physician/INSTITUTIONAL AIDE ) Arrival Mode Ambulatory Transfer Assistance None Patient Identification Verified (Name & Yes ) Patient Requires Transmission-Based No Precautions Height and Weight Body Mass Index (BMI) 44.6 BMI Classification Obese Vital Signs Temperature (97.8 F-99.1 F) 97.1 F L Temperature Source Temporal Pulse Rate (60-100) 58 L Pulse Location Monitor Respiratory Rate (12-18) 15 Respiratory rate source Observation Blood Pressure (90/60-120/80) 152/59 H Blood Pressure Mean (mm Hg) 90 Source Monitor Position Sitting Blood Pressure Location Left Arm History Since Last Visit- (Skip if this is Patient's initial visit) Have you changed medications since your No last visit? Any new allergies or adverse reactions No Had a fall/change in ADL's that may No increase risk of falls Signs or symptoms of abuse and/or No neglect since last visit Have you been in the hospital since your No last visit? Has dressing in place as prescribed Yes Has compression in place as prescribed Yes Has offloadiing in place as prescribed Yes Experienced any changes in pain level or No management Pain Scale: 0-10 Numeric Is Patient Pain Free? Yes [facility] Nurse 1 - General Ulcer Measurement Start: 09/13/24 08:39 Freq: Status: Active Protocol: Activity Type Activity Date Activity User E-sign Co-sign Detail Recorded Client Recorded Date Recorded By Document 09/13/24 08:39 ML [id number] 09/13/24 08:43 ML 09/13/24 08:39 Wound Center Nurse 1 #5 RT LAT LE POST-OP -Current Size (cm) - Length 14.5 -Current Size (cm) - Width 3.2 -Current Size (cm) - Depth 0.1 -Total Square Cm 46.40 -Exudate Amt Medium -Exudate Type Serous -Wound Margin Distinct, Outline Attached -Granulation Amt Medium (34-66%) -Granulation Quality Bergman -Slough/Fibrin Yes -Necrosis Amt Medium (34-66%) -Necrotic Tissue Type Adherent Slough -Texture (Mariza-wound Skin Appearance) Assessed -Moisture (Mariza-wound Skin Appearance) Assessed -Color (Mariza-wound Skin Appearance) Assessed -Temperature (Mariza-wound Skin No Abnormality Appearance) (Pt Warm) -Tenderness on Palpation (Mariza-wound No Skin Appearance) -Ulcer Cleansing Soap and Water -Foul Odor after Cleansing No -Anesthetic Used 5% Lidocaine Gel Left Calf (cm) 35 Left Ankle (cm) 25.5 WC - Nurse 2 - General Ulcer CM Notes Start: 09/13/24 08:39 Freq: Status: Active Protocol: Activity Type Activity Date Activity User E-sign Co-sign Detail Recorded Client Recorded Date Recorded By Document 09/13/24 08:56 TALI [id number] 09/13/24 09:00 TALI 09/13/24 08:56 Wound Center Nurse 2 #5 RT LAT LE POST-OP -Time 08:56 -Correct Patient Yes -Correct Side, Site, Position Yes -Correct Procedure Yes -Procedure Performed Yes -Type of Procedure Debridement -Clinical Debridement Subcutaneous -Tissue Removed Subcutaneous -Post Debridement (cm) - Length 14.8 -Post Debridement (cm) - Width 3.4 -Post Debridement (cm) - Depth 0.1 -Total Square (Post) (cm) 50.32 -Area of Debridement (cm) - Length 14.8 -Area of Debridement (cm) - Width 3.4 -Total Square (Area) (cm) 50.32 -Tunneling No -Undermining/Tunneling No -Circular Undermining No -Wound/Ulcer Outcome Not Healed -Ulcer Cleansing Rinsed/ Irrigated with Saline -Foul Odor after Cleansing No -Bioengineered Tissue No -Bleeding Controlled with Pressure -Treatment Response Procedure Tolerated Well -Offloading No -Debridement - Subq, 1st 20sq cm Yes -Debridement, SubQ, ea addt'l 20sq cm 2 or part thereof Pain Scale: 0-10 Numeric Is Patient Pain Free? Yes [facility] - Nurse 3 - General Ulcer D/C NN Start: 09/13/24 08:39 Freq: Status: Active Protocol: Activity Type Activity Date Activity User E-sign Co-sign Detail Recorded Client Recorded Date Recorded By Document 09/13/24 09:20 MO [id number] 09/13/24 09:21 MT 09/13/24 09:20 Wound Care Center Nurse 3 #5 RT LAT LE POST-OP -Primary Dressing Applied Promogran Page Matter -Other Dressing abd -Primary Dressing Covered/Secured with Dry Gauze,Dry Gauze & Roll Gauze,Secured with Tape -Promogran Page Matter 2 LLE -Compression Wrap Celso Wrap RLE -Compression Wrap Celso Wrap Pain Scale: 0-10 Numeric Is Patient Pain Free? Yes WC - Visit Discharge Discharge Condition Stable Ambulatory Status Ambulatory Transportation Private Auto Medication Reconcilliation completed & No provided to patient/care provider Clinical Summary of Care Provided Yes Notes: chelsy [facility]ral Assessment/Plan Assessment/Plan (1) Non-pressure chronic ulcer of other part of right lower leg with fat layer exposed: CODE(S): L97.812 - Non-pressure chronic ulcer of other part of right lower leg with fat layer exposed PLAN: Patient was examined and evaluated. All findings were discussed with the patient. All questions were answered to the patient's satisfaction. Excisional debridement of the right leg lateral aspect full-thickness ulceration down to and including subcutaneous tissue with a number 7 mm dermal curette without incident. Predebridement measurement was 14.6 x 3.2 x 0.1 cm. Postde bridement measurement was 14.8 x 3.4 x 0.1 cm. The right lower extremities were cleaned and patted dry. Walter put Page dry sterile dressing and compression wrap was donned to the right lower extremity. Compression wrap was donned to left lower extremity. Patient will continue dressing changes as written. Educated patient to continue ambulation as well as strict blood sugar control. Follow-up at the wound care center with Dr. Shannon in 2 week.
--- NOTE | 2024-09-13 14:53 | WC ---
PHOTO 09/13/24 RIGHT LATERAL LEG
[2024-09-27 08:56] VITALS: BP 165/72; PULSE 58; RESP 16; TEMP 36.7; BMI 44.6
--- NOTE | 2024-09-27 10:53 | PCM.WC.PN ---
History of Present Illness Date of Service: 09/27/24 Chief Complaint: Right buttock ulceration History of Wound: Patient is 69-year-old male chronic ulceration to the lateral right leg stable with no sign of infection. Progress of Wound: Stable slow healing wound right lateral leg. Subjective Subjective Mr. Gutierrez is a 69-year-old diabetic male presenting to wound care center today for follow-up evaluation of lateral right leg full-thickness wound. He has been getting every other day dressing changes per his nursing staff at his senior care facility. Patient was complaining about getting extra changes regarding his dressing on shower days which they stated they did not have an order for. This has been an on growing frustration for the patient and will make attempts to change it during today's visit with new orders. Otherwise his blood sugar has been well-controlled. Denies constitutional symptoms. Denies trauma. No other pedal complaints at this time. Objective Data Objective Data Vital Signs: Vital Signs Temp Pulse Resp BP 98.1 F 58 L 16 165/72 H 09/27/24 08:56 09/27/24 08:56 09/27/24 08:56 09/27/24 08:56 Weight: 157.85 kg Body Mass Index (BMI) 44.6 Physical Exam Narrative Vascular: DP and PT pulses are palpable to the right lower extremity. Nonpitting edema appreciated to the right lower extremity. Skin temperature gradient is warm to warm from proximal ankles to distal digit. No focal increase appreciated. Evidence of varicosities appreciated left lower extremity. Neurological: Light touch intact. Patient response to painful stimuli. Protective sensation is diminished. Dermatological: Full-thickness ulceration to the lateral aspect of the right leg measuring 14.2 x 3.0 x 0.1 cm. Wound base is granular. No malodor or probe to bone. No sign of infection. Excisional debridement of the right leg lateral aspect full-thickness ulceration down to and including subcutaneous tissue with a number 5 mm dermal curette without incident. Predebridement measurement was 13.8 x 2.7 x 0.1 cm. Postdebridement measurement was 14.2 x 3.0 x 0.1 cm. Musculoskeletal: Mild pain to palpation to full-thickness ulceration. No pain with calf compression. Debridement Note Debridement Note Debridement Free Text: Excisional debridement of the right leg lateral aspect full-thickness ulceration down to and including subcutaneous tissue with a number 5 mm dermal curette without incident. Predebridement measurement was 13.8 x 2.7 x 0.1 cm. Postdebridement measurement was 14.2 x 3.0 x 0.1 cm. Post-Debridement Measurements and Additional Note: Post-Debridement Measurements/Treatment WC - Nurse 1 - General Ulcer Assessment Start: 09/13/24 08:39 Freq: Status: Active Protocol: WC.LOWEXT Activity Type Activity Date Activity User E-sign Co-sign Detail Recorded Client Recorded Date Recorded By Document 09/13/24 08:39 ML [id number] 09/13/24 08:43 ML Document 09/27/24 08:56 CP [id number] 09/27/24 09:11 CP 09/13/24 09/27/24 08:39 08:56 WC - Today's Visit Information Type of service Follow-up Visit Follow-up Visit (Physician/POLICY SERVICES REPRESENTATIVE (Physician/POLICY SERVICES REPRESENTATIVE ) ) Arrival Mode Ambulatory Ambulatory Transfer Assistance None None Patient Identification Verified (Name & Yes Yes ) Patient Requires Transmission-Based No Precautions Height and Weight Body Mass Index (BMI) 44.6 44.6 BMI Classification Obese Obese Vital Signs Temperature (97.8 F-99.1 F) 97.1 F L 98.1 F Temperature Source Temporal Temporal Pulse Rate (60-100) 58 L 58 L Pulse Location Monitor Monitor Respiratory Rate (12-18) 15 16 Respiratory rate source Observation Observation Blood Pressure (90/60-120/80) 152/59 H 165/72 H Blood Pressure Mean (mm Hg) 90 103 Source Monitor Monitor Position Sitting Sitting Blood Pressure Location Left Arm Right Arm History Since Last Visit- (Skip if this is Patient's initial visit) Have you changed medications since your No No last visit? Any new allergies or adverse reactions No No Had a fall/change in ADL's that may No No increase risk of falls Signs or symptoms of abuse and/or No No neglect since last visit Have you been in the hospital since your No No last visit? Has dressing in place as prescribed Yes Yes Has compression in place as prescribed Yes Yes Has offloadiing in place as prescribed Yes N/A Experienced any changes in pain level or No No management Left Footwear Slipper Right Footwear Slipper Pain Scale: 0-10 Numeric Is Patient Pain Free? Yes Yes - Nurse 1 - General Ulcer Measurement Start: 09/13/24 08:39 Freq: Status: Active Protocol: Activity Type Activity Date Activity User E-sign Co-sign Detail Recorded Client Recorded Date Recorded By Document 09/13/24 08:39 ML [id number] 09/13/24 08:43 ML Document 09/27/24 08:56 CP [id number] 09/27/24 09:11 CP 09/13/24 09/27/24 08:39 08:56 Wound Center Nurse 1 #5 RT LAT LE POST-OP -Current Size (cm) - Length 14.5 14.2 -Current Size (cm) - Width 3.2 3 -Current Size (cm) - Depth 0.1 0.1 -Total Square Cm 46.40 42.6 -Date of Last Picture (Recall this 09/27/24 field) -Photo Taken Yes -Epithelialization None Present -Tunneling No -Undermining/Tunneling No -Exudate Amt Medium Small -Exudate Type Serous Serosanguineous -Wound Margin Distinct, Flat & Intact Outline Attached -Granulation Amt Medium (34-66%) Large (67-100%) -Granulation Quality [place] Red -Slough/Fibrin Yes -Necrosis Amt Medium (34-66%) Small (1-33%) -Necrotic Tissue Type Adherent Slough Adherent Slough -Structure Exposed N/A -Texture (Mariza-wound Skin Appearance) Assessed No Abnormality -Moisture (Mariza-wound Skin Appearance) Assessed No Abnormality -Color (Mariza-wound Skin Appearance) Assessed No Abnormality -Temperature (Mariza-wound Skin No Abnormality No Abnormality Appearance) (Pt Warm) (Pt Warm) -Tenderness on Palpation (Mariza-wound No No Skin Appearance) -Ulcer Cleansing Soap and Water Soap and Water -Foul Odor after Cleansing No No -Anesthetic Used 5% Lidocaine 4% Lidocaine Gel Solution Right Calf (cm) 36.5 Right Ankle (cm) 26.5 Left Calf (cm) 35 Left Ankle (cm) 25.5 WC - Nurse 2 - General Ulcer CM Notes Start: 09/13/24 08:39 Freq: Status: Active Protocol: Activity Type Activity Date Activity User E-sign Co-sign Detail Recorded Client Recorded Date Recorded By Document 09/13/24 08:56 JF [id number] 09/13/24 09:00 JF Document 09/27/24 09:34 JF [id number] 09/27/24 09:36 JF 09/13/24 09/27/24 08:56 09:34 Wound Center Nurse 2 #5 RT LAT LE POST-OP -Time 08:56 09:35 -Correct Patient Yes Yes -Correct Side, Site, Position Yes Yes -Correct Procedure Yes Yes -Procedure Performed Yes Yes -Type of Procedure Debridement Debridement -Clinical Debridement Subcutaneous Subcutaneous -Tissue Removed Subcutaneous Subcutaneous -Post Debridement (cm) - Length 14.8 14.2 -Post Debridement (cm) - Width 3.4 3.0 -Post Debridement (cm) - Depth 0.1 0.1 -Total Square (Post) (cm) 50.32 42.60 -Area of Debridement (cm) - Length 14.8 14.2 -Area of Debridement (cm) - Width 3.4 3.0 -Total Square (Area) (cm) 50.32 42.60 -Tunneling No No -Undermining/Tunneling No No -Circular Undermining No No -Wound/Ulcer Outcome Not Healed Not Healed -Ulcer Cleansing Rinsed/ Rinsed/ Irrigated with Irrigated with Saline Saline -Foul Odor after Cleansing No No -Bioengineered Tissue No No -Bleeding Controlled with Pressure Pressure -Treatment Response Procedure Procedure Tolerated Well Tolerated Well -Offloading No No -Debridement - Subq, 1st 20sq cm Yes Yes -Debridement, SubQ, ea addt'l 20sq cm 2 2 or part thereof Pain Scale: 0-10 Numeric Is Patient Pain Free? Yes Yes - Nurse 3 - General Ulcer D/C NN Start: 09/13/24 08:39 Freq: Status: Active Protocol: Activity Type Activity Date Activity User E-sign Co-sign Detail Recorded Client Recorded Date Recorded By Document 09/13/24 09:20 WA [id number] 09/13/24 09:21 MT Document 09/27/24 09:50 [id number] 09/27/24 09:50 GM 09/13/24 09/27/24 09:20 09:50 Wound Care Center Nurse 3 #5 RT LAT LE POST-OP -Ulcer Cleansing Not Cleansed -Foul Odor after Cleansing No -Primary Dressing Applied Promogran Promogran Page Matter Page Matter -Other Dressing abd -Primary Dressing Covered/Secured with Dry Gauze,Dry Dry Gauze & Gauze & Roll Roll Gauze, Gauze,Secured Secured with with Tape Tape -Promogran Page Matter 2 1 LLE -Lotion applied to leg before No compression wrap -Compression Wrap Celso Wrap Celso Wrap RLE -Lotion applied to leg before No compression wrap -Compression Wrap Celso Wrap Celso Wrap Pain Scale: 0-10 Numeric Is Patient Pain Free? Yes Yes WC - Visit Discharge Discharge Condition Stable Stable Ambulatory Status Ambulatory Ambulatory Transportation Private Auto Private Auto Medication Reconcilliation completed & No provided to patient/care provider Clinical Summary of Care Provided Yes Notes: [facility] Assessment/Plan Assessment/Plan (1) Non-pressure chronic ulcer of other part of right lower leg with fat layer exposed: CODE(S): L97.812 - Non-pressure chronic ulcer of other part of right lower leg with fat layer exposed PLAN: Patient was examined and evaluated. All findings were discussed with the patient. All questions were answered to the patient's satisfaction. Excisional debridement of the right leg lateral aspect full-thickness ulceration down to and including subcutaneous tissue with a number 5 mm dermal curette without incident. Predebridement measurement was 13.8 x 2.7 x 0.1 cm. Postdebridement measurement was 14.2 x 3.0 x 0.1 cm. The right lower extremities were cleaned and patted dry. Moist Page, dry sterile dressing and compression wrap was donned to the right lower extremity. Compression wrap was donned to left lower extremity. Patient will continue dressing changes as written. Educated patient to continue ambulation as well as strict blood sugar control. Follow-up at the wound care center with Dr. Shannon in 2 week.
--- NOTE | 2024-09-28 08:33 | WC ---
PHOTO 09/27/24 RIGHT LATERAL LEG
--- NOTE | 2024-09-28 08:36 | WC ---
PHOTO 09/27/24 RIGHT LATERAL LEG
== END 2024-10-09 23:59 | disposition home or self-care (01) ==
LOC: WC 09:00
PROVIDERS: Referring Provider Surgery; Visit Provider Podiatrist Foot & Ankle Surgery
DX: E11.622 Type 2 diabetes mellitus with other skin ulcer (principal); L97.812 Non-pressure chronic ulcer of other part of right lower leg with fat layer exposed
CPT/HCPCS: 11042; 11045

== ENCOUNTER 2024-10-10 15:23 | Inpatient (IN) | payer MEDICARE, SELFPAY ==
[2024-10-10] VITALS (8 sets, daily range): BP systolic 102–131; BP diastolic 65–74; PULSE 78–110; RESP 18–28; TEMP 37.1–38.9; O2SAT 94–98; BMI 42.4
--- NOTE | 2024-10-10 15:50 | EKG12_ITS ---
Test Reason : Blood Pressure : */* mmHG Vent. Rate : 99 BPM Atrial Rate : 99 BPM P-R Int : 200 ms QRS Dur : 118 ms QT Int : 346 ms P-R-T Axes : 98 63 14 degrees QTcB Int : 444 ms Normal sinus rhythm Non-specific intra-ventricular conduction delay T wave abnormality, consider inferior ischemia Abnormal ECG Confirmed by Amarjit Soliman [id number]), avid editor JOE ABREU ([id number]) on 10/11/2024 7:50:58 AM Referred By: EUNICE Confirmed By: Amarjit Soliman
--- NOTE | 2024-10-10 15:52 | EX.ED.GUMALE ---
HPI History of Present Illness Chief Complaint: Complaint Narrative Narrative: 69-year-old male past medical history of chronic indwelling Cohen catheter, states that he has had abdominal and penile pain for the last 2 to 3 days. He states that his catheter was exchanged a few days ago because it changed about once a month. He states that he has been having pain ever since along with dry mouth. However, according to the squad sheet, Cohen catheter replacement was today and is now bloody. He also had elevated temperature as well. [facility] Medical History MRSA (methicillin resistant staph aureus) culture positive Lives in group home Wears dentures Depression Anxiety Walker as ambulation aid Ambulates with cane Headache Shortness of breath on exertion Cardiology follow-up encounter History of renal disease Insulin dependent diabetes mellitus Pressure ulcer Abscess Indwelling urethral catheter present Acute painful diabetic polyneuropathy Cancer Former smoker CPAP (continuous positive airway pressure) dependence On home oxygen therapy Pulmonary embolism COPD (chronic obstructive pulmonary disease) Myocardial infarct DVT (deep venous thrombosis) Anemia Ulcer with necrosis of muscle Lymphedema of left lower extremity Lymphedema of right lower extremity Edema of left lower leg Edema of right lower leg Left leg swelling Right leg swelling Chronic venous insufficiency Non-pressure ulcer of right lower extremity with necrosis of muscle BPH (benign prostatic hyperplasia) Atrial fibrillation Blood loss anemia Hypertension Hiatal hernia Diverticulosis Debility Morbid obesity with BMI of 40.0-44.9, adult Impaired mobility SOB (shortness of breath) Heart murmur Heart failure 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 2 diabetes mellitus Aortic valve disease Renal mass, left History of DVT (deep vein thrombosis) Valvular heart disease Atrial fibrillation/flutter Chronic acquired lymphedema Chronic anemia Venous insufficiency (chronic) (peripheral) Ulcer of left lower extremity with fat layer exposed Superficial thrombosis of left lower extremity Peripheral vascular disease of lower extremity with ulceration Sleep apnea Morbid obesity DM2 (diabetes mellitus, type 2) Benign essential HTN Home Medications ?Medication ?Instructions ?Recorded ?Last Taken ?Type aspirin 81 mg tablet,delayed 81 mg PO DAILY AFIB 03/17/19 Unknown History release amlodipine 5 mg tablet 5 mg PO DAILY AFIB 10/28/23 Unknown History apixaban 5 mg tablet (Eliquis) 5 mg PO BID AFIB 10/28/23 Unknown History atorvastatin 20 mg tablet 20 mg PO QHS HYPERLIPIDEMIA 10/28/23 Unknown History melatonin 3 mg tablet 6 mg PO QHS INSOMNIA 10/28/23 Unknown History tamsulosin 0.4 mg capsule 0.4 mg PO QHS PROSTATIC HYPERPLASIA 12/22/23 Unknown History acetaminophen 325 mg tablet 650 mg PO Q4H PRN pain 06/01/24 Unknown History (Tylenol) cyanocobalamin (vitamin B-12) 500 mcg PO DAILY 06/01/24 Unknown History 1,000 mcg capsule insulin glargine 100 unit/mL (3 23 unit subcut QHS 06/01/24 Unknown History mL) subcutaneous pen (Lantus Solostar U-100 Insulin) donepezil 5 mg tablet 5 mg PO QHS MEMORY 08/16/24 Unknown History gabapentin 100 mg capsule 200 mg PO TID NEUROPATHY 08/16/24 Unknown History insulin lispro 100 unit/mL See Protocol subcut TID 08/16/24 Unknown History subcutaneous pen (Humalog KwikPen (U-100) Insulin) lurasidone 40 mg tablet 40 mg PO QHS MOOD 08/16/24 Unknown History potassium chloride 10 mEq 10 meq PO BID 08/16/24 Unknown History capsule,extended release torsemide 20 mg tablet 20 mg PO BID HEART 08/16/24 Unknown History budesonide-formoterol HFA 160 1 puff inhalation DAILY COPD 09/16/24 Unknown History mcg-4.5 mcg/actuation aerosol inhaler (Symbicort) lactulose 20 gram/30 mL oral 30 ml PO DAILY CONSTIPATION 09/16/24 Unknown History solution trazodone 100 mg tablet 100 mg PO QHS insomnia 09/16/24 Unknown History Allergy/AdvReac Type Severity Reaction Status Date / Time ibuprofen (From Nuprin) Allergy Unknown Verified 10/10/24 15:27 Family History Mother Diabetes Father Cirrhosis of liver Alcoholism Surgical History History of incision and drainage History of embolic filter insertion History of right inguinal hernia repair H/O colectomy History of repair of inguinal hernia History of bladder surgery History of tonsillectomy and adenoidectomy History of right inguinal hernia repair S/P AVR (aortic valve replacement) Social History housing: group home Smoking Status: Former smoker how long ago did patient quit smoking: Quit ~ 20 yrs prior, smoked age 15 until quit ~ 2 ppd. alcohol intake: never substance use type: does not use ROS ROS ED ROS Narrative Constitutional: Reported fever, no chills. Cardiovascular: No chest pain. No palpitations. No pedal edema. Respiratory: No cough, no shortness of breath. Abdominal: Suprapubic abdominal pain. No nausea. No vomiting. Genitourinary: No dysuria. Positive hematuria. Positive penile pain. Musculoskeletal: No myalgias. No arthralgias. Neurologic: No headaches. No dizziness. No lightheadedness. Skin: No rash. No change in color. Psychiatric: No depression. No anxiety. EXAM Physical Exam Narrative Exam Narrative: Elevated temperature 101.3 ?F. Cardiovascular examination reveals mild tachycardia. Lungs clear to auscultation bilaterally. Abdomen is soft with mild tenderness to palpation in the suprapubic area without guarding or rebound. Positive Cohen catheter in place draining bloody urine in the bag, with yellow urine in tubing. Neurological examination shows him to be awake, alert, and interactive. Const Vital Signs: 10/10/24 15:24 10/10/24 16:04 10/10/24 16:27 Temperature 101.3 F H 102.1 F H Temperature Source Oral Core Pulse Rate 110 H 95 Respiratory Rate 28 H 28 H Blood Pressure 103/66 103/66 Blood Pressure Mean 78 78 Pulse Ox 98 96 96 Oxygen Delivery Method Room Air Room Air Room Air 10/10/24 17:25 Temperature 101.6 F H Temperature Source Pulse Rate 95 Respiratory Rate 28 H Blood Pressure 119/70 Blood Pressure Mean 86 Pulse Ox 96 Oxygen Delivery Method Sepsis Attestation Sepsis Alert: Yes Sepsis Attestation: Agree w/Sepsis Date exam was performed: 10/10/24 Time exam was performed: 17:18 Possible Source of Sepsis: Genitourinary Sepsis Organ Dysfunction Criteria Present: Creatinine > 2.0 mg/dL, Platelets <100,000 / uL and Lactic Acid > 2 mmol/L Fluid Resuscitation Fluid Resuscitation ordered: Fluids not indicated Reason for lesser fluid bolus:: BP Responded to a lesser volume and Other (Patient maintained blood pressure with good MAP. Could be more dehydration.) MDM MDM MDM Narrative Medical decision making narrative: Given his fever, as well as bloody urine, differential diagnosis does include sepsis from UTI versus traumatic Cohen exchange versus pneumonia versus other upper respiratory infection type symptoms. Patient will be given Tylenol for his fever and sepsis workup pursued. In review of his laboratory work, patient neutropenic at 3.7 with hemoglobin stable at 11.7 with hematocrit 35.8, platelet count low at 59. When compared to prior laboratories, he has been thrombocytopenic at 147 previously, but appears to be pancytopenic currently. INR normal at 1.6, BUN elevated at 69 with creatinine 2.06. He has had slight elevations in the past but this is more of an acute kidney injury. Lactic acid elevated at 3.7, AST slightly elevated 53 which I think is nonspecific. In review of his urinalysis, there are greater than 100 RBCs with only 5-10 WBCs but 2+ bacteria. This was sent for culture. I suspect that given his fever and neutropenia, that source of sepsis may be from his urine. He was started on Maxipime given his chronic indwelling Cohen catheter. I reviewed his respiratory swab it is negative for COVID, influenza, and RSV. Chest x-ray interpreted by myself independently shows no discrete consolidation, but there may be perihilar fullness. I reviewed the radiology report which confirms that there is no acute consolidation. EKG was also obtained and interpreted by myself independently as normal sinus rhythm at 99 bpm without ectopy or acute ST changes. No STEMI. I did review the patient's DNR order and he is DO NOT RESUSCITATE Comfort Care arrest with no intubation. Although he states he prefers to return to the [place] [facility] facility, given his lactic acidosis, and pancytopenia, I do feel that he requires admission for further IV antibiotics. Patient discussed with the hospitalist for admission. I was able to discuss patient with Dr. Garcias, who wanted a CT of the abdomen and pelvis without contrast. This was ordered and she will check the results. Disposition is admit to the PCU in stable condition. History & Record Review Discussion w/independent historian: Patient Additional record(s) reviewed:: Prior labs Lab Data Attestation: I reviewed the patient's lab results. Labs: Laboratory Results - last 24 hr 10/10/24 10/10/24 15:40 16:15 WBC 3.7 L RBC 4.20 L Hgb 11.7 L Hct 35.8 L MCV 85.2 MCH 27.9 MCHC 32.7 RDW Std Deviation 51.7 H RDW Coeff of Carlito 16.7 H Plt Count 59 L MPV TNP Immature Gran % (Auto) 0.300 Neut % (Auto) 87.7 H Lymph % (Auto) 6.7 L Mcdowell % (Auto) 3.2 Eos % (Auto) 0.0 Baso % (Auto) 2.1 H Absolute Neuts (auto) 3.3 Absolute Lymphs (auto) 0.25 L Nucleated RBC % 0 Differential Comment SCANNED PT 19.6 H INR 1.6 APTT 35.3 Sodium 138 Potassium 4.5 Chloride 104 Carbon Dioxide 20.3 L Anion Gap 14 BUN 69 H Creatinine 2.06 H Estim Creat Clear Calc 45.27 L Est GFR (MDRD) Non-Af 34 L BUN/Creatinine Ratio 33.3 H Glucose 178 H Lactic Acid 3.7 H* Calcium 9.0 Total Bilirubin 0.61 AST 53 H ALT 33 Alkaline Phosphatase 105 Total Protein 6.6 Albumin 3.1 L Globulin 3.5 Albumin/Globulin Ratio 0.9 Urine Color Red Urine Clarity Cloudy Urine pH 9.0 Ur Specific [place] 1.015 Urine Protein 500 H Urine Glucose (UA) Normal Urine Ketones Negative Urine Occult Blood 250 H Urine Nitrite Negative Urine Bilirubin Negative Urine Urobilinogen Normal Ur Leukocyte Esterase 500 H Urine RBC > 100 SEEN Urine WBC 5-10 SEEN Ur Squamous Epith Cells 0 SEEN Urine Bacteria 2+ Urine Mucus 0 SEEN Radiography Chest X-Ray - ED: 1 View, Read by ED Physician, Read by Radiologist and Normal Diagnostic Testing: Clinical Impression(s) from Imaging Studies Chest X-Ray 10/10/24 17:00 IMPRESSION: No Acute Findings. Reading [facility]/Pelvis CT 10/10/24 17:35 IMPRESSION: 1. No acute abdominopelvic finding. 2. Right inguinal hernia containing a portion of the urinary bladder, unchanged since prior examination. The urinary bladder is decompressed by indwelling Cohen catheter. 3. Stable large lower pole renal exophytic mass with left adrenal nodule. This is incompletely evaluated by noncontrast examination, however findings are most compatible with renal neoplasm such as renal cell carcinoma. Correlation with outpatient nonemergent CT or MRI abdomen (renal protocol) should be performed for further evaluation. 4. Mild splenomegaly. 5. Clustered nodularity within the left lower lobe, which may be represent infectious/inflammatory etiology such best aspiration pneumonia. Reading Location: [id number] Discharge Plan Dx/Rx/DC Orders Clinical Impression: Pancytopenia, Sepsis, UTI (urinary tract infection), Cohen catheter problem Disposition Disposition: Acute Care Hospital [facility] Discharge Date/Time: 10/10/24 18:20
[2024-10-10] MEDS: Acetaminophen 325 MG Tablet 650 MG PO (16:02)
[2024-10-10 16:11] LABS: Absolute Lymphocyte Count 0.25 X10^3/uL (0.83-4.51); Absolute Neutrophil Count 3.3 X10^3/uL (2.0-7.7); Basophil# 0.08 X10^3/uL; Basophil% 2.1 % (0-1); Hematocrit 35.8 % (40-54); Hemoglobin 11.7 g/dL (13.0-16.5); Lymphocyte # 0.25 X10^3/ul (0.83-4.51); Lymphocyte % 6.7 % (19-41); Mean Corp Hgb Conc 32.7 g/dL (32-36); Mean Corpuscular Hgb 27.9 pg (27.0-32.0); Mean Corpuscular Volume 85.2 fL (80-94); Monocyte# 0.12 X10^3/uL; Monocyte% 3.2 % (0-10); NRBC Flagged by Analyzer 0 % (0-5); Neutrophil # 3.27 X10^3/uL (2.7-7.7); Neutrophil % 87.7 % (47-70); POSITIVE COUNT YES; POSITIVE DIFFERENTIAL YES; POSITIVE MORPHOLOGY YES; Platelet Count 59 K/mm3 (150-450); RBC Distribution Width CV 16.7 % (11.6-14.6); RBC Distribution Width SD 51.7 fl (35.1-43.9); White Blood Count 3.7 K/mm3 (4.4-11.0)
[2024-10-10 16:22] LABS: International Normalized Ratio 1.6; Prothrombin Time (Protime)PT. 19.6 SECONDS (11.7-14.9)
[2024-10-10 16:23] LABS: Partial Thromboplast Time 35.3 Seconds (24.1-36.2)
[2024-10-10 16:24] LABS: Differential Indicated SCAN CRITERIA MET
[2024-10-10 16:25] LABS: Mucous, Urine 0 SEEN /hpf (<or=2+); Squamous Epithelial Cells - UA 0 SEEN /hpf (0-5)
[2024-10-10 16:28] LABS: ALB/GLOB Ratio 0.9 RATIO (0.9-2.4); AST(SGOT) 53 U/L (<=37); Alanine Aminotransfer ALT/SGPT 33 U/L (<=46); Albumin, Serum 3.1 g/dL (3.4-4.8); Alkaline Phosphatase 105 U/L (40-129); Anion Gap 14 (5-15); BUN 69 mg/dL (4-19); BUN/Creat Ratio 33.3 RATIO (10-20); Carbon Dioxide 20.3 mmol/L (21.0-32.0); Chloride 104 mmol/L (98-108); Creatinine, Serum 2.06 mg/dL (0.70-1.20); EST Glomerular Filtration Rate 34 (>60); Estimated Creatinine Clearance 45.27 ml/min (50-250); Globulin 3.5 g/dL (2.2-4.2); Glucose 178 mg/dL (70-99); Potassium 4.5 mmol/L (3.3-5.1); Protein, Total 6.6 g/dL (5.9-8.4); Sodium Level 138 mmol/L (133-145); Total Bilirubin 0.61 mg/dL (0.00-1.30)
[2024-10-10 16:35] LABS: Color, Urine Red (Yellow); Glucose, Dipstick Normal (Normal); Ketone-Dipstick Negative (Negative); Leukocyte Esterase-Dipstick 500 /ul (Negative); Nitrite-Dipstick Negative (Negative); Occult Blood-Urine 250 /ul (Negative); Protein-Dipstick 500 mg/dl (Negative); Specific Gravity, Urine 1.015 (1.002-1.030); Urine Bilirubin Dipstick Negative (Negative); Urine Clarity Cloudy (Clear); Urine Urobilinogen Normal (Normal)
[2024-10-10 16:46] LABS: Bacteria 2+ /hpf (None Seen); Red Blood Cells-Urine > 100 SEEN /hpf (0-5); White Blood Cells 5-10 SEEN /hpf (0-5)
[2024-10-10 16:50] LABS: Lactic Acid 3.7 mmol/L (0.0-2.0)
[2024-10-10 16:51] LABS: Differential Comment SCANNED
--- NOTE | 2024-10-10 16:52 | ED.RN ---
Critical lactic acid of 3.7. Dr. Monteiro and primary RN notified
--- NOTE | 2024-10-10 17:00 | RAD_ITS ---
PROCEDURE: CHEST 1 VIEW (PORTABLE) 10/10/2024 REASON FOR EXAM: FEVER TECHNIQUE: Frontal view of the chest. COMPARISON: Chest radiograph dated 09/16/2024 FINDINGS: Hardware: Sternotomy wires are present. Heart: The heart size is normal. Lungs: The lungs are clear. Bones: Degenerative changes are identified within the thoracic spine. Other: RAD/Chest 1 View (Portable) IMPRESSION: No Acute Findings. Reading Location: [facility]
[2024-10-10] MEDS: Cefepime HCl 2 GM in 0.9% Normal Saline (100mL MB+) 100 ML IV (17:07)
[2024-10-10] MEDS: 0.9% Normal Saline (1000mL) 1,000 ML 999 ML IV (17:25)
--- NOTE | 2024-10-10 17:30 | HP.PCM.HOS_ITS ---
HPI - General General Date of Admission: 10/10/24 Date of Service: 10/10/24 Chief Complaint: abdominal and penile pain HPI Narrative SHANELLE HUNTER, is a 69 M with a PMH as outlined who presents via the ED on 10/10/2024 with a complaint of abdominal and penile pain which had been going on for ~ 2-3 days prior to admission. He has a chronic indwelling martines catheter and says it was changed a few days ago. He usually gets it changed once a month. He denied any fever or chills, and his urine was now bloody. He denied any chest pain, palpitations, dizziness, nausea, vomiting or any other symptoms. Review of systems was otherwise negative. Vitals in the ED were BP of 119/70, WV of 95, RR of 28 and temp of 101.6F. He was saturating at 96% on room air. CBC showed Hb of 11.7, wbc of 3.7 and platelets of 59. INR was 1.6. Chemistry showed sodium of 138, potassium of 4.5 nad bicarb of 20.3. Cr is 2.06. lactic acid is 3.7. Urinalysis showed 5-10wbc and bacteria 2+. CXR showed no acute cardiopulmonary pathology. He is being admitted to be managed for sepsis due to UTI. I requested that the ED doctor order a CT of hte abdomen nad pelvis to rule out any obstructive uropathy causing the VALENTIN. CT of the abdomen and pelvis showed no acute abdominopelvic finding, and showed a stable large lower pole renal exophytic mass with left adrenal nodule, concerning for renal neoplasm. [facility]LY [facility] Medical History MRSA (methicillin resistant staph aureus) culture positive Lives in group home Wears dentures Depression Anxiety Walker as ambulation aid Ambulates with cane Headache Shortness of breath on exertion Cardiology follow-up encounter History of renal disease Insulin dependent diabetes mellitus Pressure ulcer Abscess Indwelling urethral catheter present Acute painful diabetic polyneuropathy Cancer Former smoker CPAP (continuous positive airway pressure) dependence On home oxygen therapy Pulmonary embolism COPD (chronic obstructive pulmonary disease) Myocardial infarct DVT (deep venous thrombosis) Anemia Ulcer with necrosis of muscle Lymphedema of left lower extremity Lymphedema of right lower extremity Edema of left lower leg Edema of right lower leg Left leg swelling Right leg swelling Chronic venous insufficiency Non-pressure ulcer of right lower extremity with necrosis of muscle BPH (benign prostatic hyperplasia) Atrial fibrillation Blood loss anemia Hypertension Hiatal hernia Diverticulosis Debility Morbid obesity with BMI of 40.0-44.9, adult Impaired mobility SOB (shortness of breath) Heart murmur Heart failure 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 2 diabetes mellitus Aortic valve disease Renal mass, left History of DVT (deep vein thrombosis) Valvular heart disease Atrial fibrillation/flutter Chronic acquired lymphedema Chronic anemia Venous insufficiency (chronic) (peripheral) Ulcer of left lower extremity with fat layer exposed Superficial thrombosis of left lower extremity Peripheral vascular disease of lower extremity with ulceration Sleep apnea Morbid obesity DM2 (diabetes mellitus, type 2) Benign essential HTN Home Medications ?Medication ?Instructions ?Recorded ?Last Taken ?Type aspirin 81 mg tablet,delayed 81 mg PO DAILY AFIB 03/17 Unknown History release amlodipine 5 mg tablet 5 mg PO DAILY AFIB 10/28/23 Unknown History apixaban 5 mg tablet (Eliquis) 5 mg PO BID AFIB Unknown History atorvastatin 20 mg tablet 20 mg PO QHS HYPERLIPIDEMIA 10/28/23 Unknown History melatonin 3 mg tablet 6 mg PO QHS INSOMNIA 4 Unknown History tamsulosin 0.4 mg capsule 0.4 mg PO QHS PROSTATIC HYPE RPLASIA 12/22/23 Unknown History acetaminophen 325 mg tablet 650 mg PO Q4H PRN pain Unknown History (Tylenol) cyanocobalamin (vitamin B-12) 500 mcg PO DAILY 4 Unknown History 1,000 mcg capsule insulin glargine 100 unit/mL (3 23 unit subcut QHS Unknown History mL) subcutaneous pen (Lantus Solostar U-100 Insulin) donepezil 5 mg tablet 5 mg PO QHS MEMORY 08/16/24 Unknown History gabapentin 100 mg capsule 200 mg PO TID NEUROPATHY 12/03 Unknown History insulin lispro 100 unit/mL See Protocol subcut TID 12/03 Unknown History subcutaneous pen (Humalog KwikPen (U-100) Insulin) lurasidone 40 mg tablet 40 mg PO QHS MOOD 08/16/24 U nknown History potassium chloride 10 mEq 10 meq PO BID 08/16/24 Unkno wn History capsule,extended release torsemide 20 mg tablet 20 mg PO BID HEART 08/16/24 Unknown History budesonide-formoterol HFA 160 1 puff inhalation DAILY COPD 09/16/24 Unknown History mcg-4.5 mcg/actuation aerosol inhaler (Symbicort) lactulose 20 gram/30 mL oral 30 ml PO DAILY CONSTIPATI ON 09/16/24 Unknown History solution trazodone 100 mg tablet 100 mg PO QHS insomnia 09/16 Unknown History Allergy/AdvReac Type Severity Reaction Status Date / Time ibuprofen (From Nuprin) Allergy Unknown Verified 10/10/24 15:27 Family History Mother Diabetes Father Cirrhosis of liver Alcoholism Surgical History History of incision and drainage History of embolic filter insertion History of right inguinal hernia repair H/O colectomy History of repair of inguinal hernia History of bladder surgery History of tonsillectomy and adenoidectomy History of right inguinal hernia repair S/P AVR (aortic valve replacement) Social History housing: group home Smoking Status: Former smoker how long ago did patient quit smoking: Quit ~ 20 yrs prior, smoked age 15 until quit ~ 2 ppd. alcohol intake: never substance use type: does not use ROS ROS Narrative frail Constitutional Constitutional: Reports chills, fatigue, fever(s), malaise and weakness; Denies anorexia Eyes Eyes: Denies change in vision ENT HEENT: Denies dysphagia or headache(s) Cardiovascular Cardiovascular: Denies chest pain, dyspnea on exertion, edema, lightheadedness, orthopnea, palpitations, paroxysmal nocturnal dyspnea, rapid heart rate or syncope Respiratory/Chest Respiratory/Chest: Denies cough, dyspnea, shortness of breath at rest or shortness of breath with exertion Gastrointestinal Gastrointestinal: Reports abdominal pain; Denies constipation, diarrhea, dyspepsia, nausea or vomiting Genitourinary Genitourinary: Reports burning urination, difficulty urinating, dysuria, hematuria and urinary frequency; Denies urinary hesitancy Musculoskeletal Musculoskeletal: Denies arthralgias Neurologic Neurologic: Denies confusion, dizziness, focal weakness, headache(s) or numbness Psychiatric Psychiatric: Denies anxiety or depression Vital Signs Vital Signs Vital Signs: 10/10/24 15:24 10/10/24 16:04 10/10/24 16:27 Temperature 101.3 F H 102.1 F H Temperature Source Oral Core Pulse Rate 110 H 95 Respiratory Rate 28 H 28 H Blood Pressure 103/66 103/66 Blood Pressure Mean 78 78 Pulse Ox 98 96 96 Oxygen Delivery Method Room Air Room Air Room Air 10/10/24 17:25 Temperature 101.6 F H Temperature Source Pulse Rate 95 Respiratory Rate 28 H Blood Pressure 119/70 Blood Pressure Mean 86 Pulse Ox 96 Oxygen Delivery Method Weight Weight: 287 lb 7.724 oz Body Mass Index (BMI) 42.4 Physical Exam Const alert, oriented x3 and no apparent distress Constitutional Narrative: class III obesity. frail, flat affect. General Appearance: cooperative HEENT normocephalic, hearing grossly normal bilaterally, moist oral mucous membranes and oropharynx normal Mouth: oral and palatal mucosa normal Eyes PERRL and EOMs intact bilaterally Neck no lymphadenopathy and supple Resp normal respiratory effort, no retractions, no use of accessory muscles and clear to auscultation bilaterally Cardio regular rate, regular rhythm, S1 normal heart sound, S2 normal heart sound and no murmurs GI normal to inspection, nondistended, normoactive bowel sounds, soft to palpation, non-tender, non-distended and hepatosplenomegaly Extremity normal to inspection, full ROM and no clubbing, cyanosis or edema Neuro oriented x3, CN's II-XII intact bilaterally, moves all extremities and no focal motor deficits Sensorium / Orientation: awake and alert Motor Exam: strength 5/5 throughout Psych affect normal Results Lab / Micro Data 10/10/24 15:40 10/10/24 15:40 Labs: Laboratory Results - last 24 hr 10/10/24 15:40: WBC 3.7 L, RBC 4.20 L, Hgb 11.7 L, Hct 35.8 L, MCV 85.2, MCH 27.9, MCHC 32.7, RDW Std Deviation 51.7 H, RDW Coeff of Carlito 16.7 H, Plt Count 59 L, MPV TNP, Immature Gran % (Auto) 0.300, Neut % (Auto) 87.7 H, Lymph % (Auto) 6.7 L, [place] % (Auto) 3.2, Eos % (Auto) 0.0, Baso % (Auto) 2.1 H, Absolute Neuts (auto) 3.3, Absolute Lymphs (auto) 0.25 L, Nucleated RBC % 0, Differential Comment SCANNED, PT 19.6 H, INR 1.6, APTT 35.3, Sodium 138, Potassium 4.5, Chloride 104, Carbon Dioxide 20.3 L, Anion Gap 14, BUN 69 H, Creatinine 2.06 H, Estim Creat Clear Calc 45.27 L, Est GFR (MDRD) Non-Af 34 L, BUN/Creatinine Ratio 33.3 H, Glucose 178 H, Lactic Acid 3.7 H*, Calcium 9.0, Total Bilirubin 0.61, A ST 53 H, ALT 33, Alkaline Phosphatase 105, Total Protein 6.6, Albumin 3.1 L, Globulin 3.5, Albumin/Globulin Ratio 0.9 10/10/24 16:15: Urine Color Red, Urine Clarity Cloudy, Urine pH 9.0, Ur Specific [place] 1.015, Urine Protein 500 H, Urine Glucose (UA) Normal, Urine Ketones Negative, Urine Occult Blood 250 H, Urine Nitrite Negative, Urine Bilirubin Negative, Urine Urobilinogen Normal, Ur Leukocyte Esterase 500 H, Urine RBC > 100 SEEN, Urine WBC 5-10 SEEN, Ur Squamous Epith Cells 0 SEEN, Urine Bacteria 2+, Urine Mucus 0 SEEN Micro: Microbiology 10/10/24 16:00 Mucosa - Nose SARS-CoV-2, Influenza & RSV (PCR) - Final Assessment & Plan Assessment/Plan (1) Sepsis: (2) UTI (urinary tract infection): PLAN: Plan #Sepsis due to UTI * admit to PCU * patient was admitted with a complaint of lower abdominal pain and penile pain. Has indwelling martines catheter which was changed a few days ago. Is usually changed monthly * urinalysis showed 2+ bacteria. Also had hematuria * lactic acid elevated at 3.7. * start on IV cefepime. Get urine and blood cultures * CT abdomen and pelvis without contrast showed a 5.6 cm exophytic enhancing left renal mass and a 6 mm slightly dense exophytic left renal cystic lesion which are concerning for malignancy. It also showed a 1.6 cm indeterminate left adrenal nodule. * hydrate with IVF NS @ 125cc/hr x 2 bags * #UTI: as above #Left renal mass * CT as above. This is similar to prior CT of the abdomen and pelvis from 09/16/2024. There is no urology notes documented in the EMR but patient says he is aware of this mass. It is not clear whether he has followed up with urology has had treatment for it. * Since this is not acute, he will benefit from follow-up with urology on outpatient basis. * #VALENTIN: * Cr is 2.06, with baseline Cr of 1.08. Cr was 1.46 on 09/16/2024 * may be pre-renal due to sepsis, though in light of indwelling martines catheter, an obstructive uropathy cannot be ruled out * hydrate with IVF and trend CR * If Cr continues to trend upwards, to consider nephrology input. * CT abdomen and pelvis as above * #Hypertension: on amlodipine. Hold torsemide due to VALENTIN. #Hyperlipidemia: on statin #Dementia: on donepezil. #Type 2 diabetes mellitus: on lantus 23 units qhs. ISS. Accuchecks ACHS. #BPH with obstructive symptoms * has chronic indwelling martines catheter as mentioned above * on flomax * DVT prophylaxis: SCDs. NO anticoagulation due to hematuria Code status: DNRCCA with intubation * Documentation from group home showed that patient was DNR CCA with intubation. I asked patient this and he also confirmed this. Charges/Coding Visit Charges Inpatient E&M: 73017 Init Hosp L3
--- NOTE | 2024-10-10 17:35 | CT_ITS ---
PROCEDURE: ABDOMEN/PELVIS WITHOUT CONT 10/10/2024 REASON FOR EXAM: 69-year-old male, ACUTE KIDNEY INJURY, hematuria. TECHNIQUE: Abdomen and pelvis CT without intravenous contrast. Noncontrast technique limits evaluation of the abdominal and pelvic viscera. Coronal and Sagittal reconstruction series were provided. One or more dose reduction techniques were used (e.g., Automated exposure control, adjustment of the mA and/or kV according to patient size, use of iterative reconstruction technique). PATIENT PREPARATION: Per protocol ORAL CONTRAST TYPE: None. COMPARISON: CT abdomen pelvis 09/17/2024. FINDINGS: Lung bases: Clustered nodularity within the left lower lobe (series 2, image 24). Bibasilar atelectasis. Mild cardiomegaly with coronary artery calcifications and prior aortic valve replacement. Liver: The unopacified liver is normal in size. No biliary ductal dilation. Gallbladder: Several calcified gallstones. Spleen: Mild splenomegaly. Pancreas: The unopacified pancreas is unremarkable. Adrenals: Stable 1.6 cm left adrenal nodule. Unremarkable right adrenal gland. Kidneys: No hydronephrosis or nephrolithiasis. Bilateral vascular calcifications. Stable left lower pole exophytic mass measuring 6.1 x 5.1 cm (coronal image 75). Bilateral renal cysts. Bladder: Decompressed by indwelling Cohen catheter. A portion of the urinary bladder resides within the right inguinal hernia, which is unchanged since prior examination. Reproductive Organs: Unremarkable. Bowel: Prior bowel resection and anastomosis within the central lower abdomen. The bowel loops are normal in caliber. No large volume ascites or free air. Tiny oval area of fluid adjacent to the right iliopsoas muscle, which may be in continuity with the adjacent bowel loop (series 2, image 137). This is new since prior examination. No inflammatory mass in the expected region of the appendix. Lymph nodes: Unchanged prominent bilateral inguinal nodes, likely reactive. Vasculature: Moderate diffuse atherosclerotic calcifications are noted. Bones: Mild thoracolumbar spondylosis. CT/Abdomen/Pelvis without Cont IMPRESSION: 1. No acute abdominopelvic finding. 2. Right inguinal hernia containing a portion of the urinary bladder, unchanged since prior examination. The urinary bladder is decompressed by indwelling Coehn catheter. 3. Stable large lower pole renal exophytic mass with left adrenal nodule. This is incompletely evaluated by noncontrast examination, however findings are most compatible with renal neoplasm such as r enal cell carcinoma. Correlation with outpatient nonemergent CT or MRI abdomen (renal protocol) should be performed for further evaluation. 4. Mild splenomegaly. 5. Clustered nodularity within the left lower lobe, which may be represent infe ctious/inflammatory etiology such best aspiration pneumonia. Reading Location: [id number]
--- NOTE | 2024-10-10 18:28 | CM.ED ---
Social Work SW met with patient, introduced self and role in [facility]. Patient states he has been at [facility] for about a year, states that he likes it there most of the time. Patient plans to return to [facility] when medically ready. No further needs identified at this time. Bethany Ortiz, SUPERVISOR [employer], RAG GRADER
[2024-10-10 19:02] LABS: Bedside Glucose 161 mg/dL (74-106)
[2024-10-10 20:01] LABS: Reflex Lactate? Y
[2024-10-10] MEDS: 0.9% Normal Saline (1000mL) 1,000 ML 150 ML IV (21:00)
[2024-10-10] MEDS: Gabapentin 100 MG Capsule 200 MG PO (21:51)
[2024-10-10] MEDS: MELATONIN 3 MG TABLET 6 MG PO (21:53)
[2024-10-10] MEDS: traZODone 100 MG Tablet PO (21:53)
[2024-10-10] MEDS: Insulin Glargine-YFGN 100 UNIT/ML Pen 23 UNIT SC (21:54)
[2024-10-10] MEDS: Insulin Lispro 100 UNIT/ML INSULN.PEN SC (21:55)
[2024-10-10] MEDS: Donepezil HCl 5 MG Tablet PO (21:57)
[2024-10-10] MEDS: Atorvastatin Calcium 20 MG Tablet PO (21:57)
[2024-10-10] MEDS: Tamsulosin HCl 0.4 MG Capsule PO (21:57)
[2024-10-10 22:06] LABS: Lactic Acid < 1.0 mmol/L (0.0-2.0)
[2024-10-10 22:25] LABS: Bedside Glucose 181 mg/dL (74-106)
[2024-10-10] MEDS: Albuterol 2.5 MG/3 ML VIAL.NEB. INHALATION (22:30)
[2024-10-10] MEDS: Cefepime HCl 1 GM in 0.9% Normal Saline (50mL MB+) 50 ML IV (23:06)
[2024-10-10] MEDS: CLARIFY ORDER NOTE (23:21)
[2024-10-11] VITALS (12 sets, daily range): BP systolic 111–133; BP diastolic 62–72; PULSE 72–464; RESP 14–20; TEMP 36.6–36.9; O2SAT 92–100
[2024-10-11] MEDS: 0.9% Normal Saline (1000mL) 1,000 ML 150 ML IV ×3 (04:02→20:56)
[2024-10-11 05:32] LABS: Absolute Lymphocyte Count 0.69 X10^3/uL (0.83-4.51); Absolute Neutrophil Count 3.9 X10^3/uL (2.0-7.7); Basophil# 0.02 X10^3/uL; Basophil% 0.4 % (0-1); Eosinophil# 0.01 X10^3/uL; Eosinophils% 0.2 % (0-5); Hematocrit 30.6 % (40-54); Lymphocyte # 0.69 X10^3/ul (0.83-4.51); Mean Corp Hgb Conc 32.7 g/dL (32-36); Mean Corpuscular Hgb 27.8 pg (27.0-32.0); Monocyte# 0.64 X10^3/uL; NRBC Flagged by Analyzer 0 % (0-5); Neutrophil # 3.94 X10^3/uL (2.7-7.7); POSITIVE COUNT YES; POSITIVE MORPHOLOGY YES; Platelet Count 57 K/mm3 (150-450); RBC Distribution Width CV 16.8 % (11.6-14.6); RBC Distribution Width SD 52.5 fl (35.1-43.9); White Blood Count 5.3 K/mm3 (4.4-11.0)
[2024-10-11 05:37] LABS: Differential Indicated SCAN CRITERIA MET
[2024-10-11] MEDS: Gabapentin 100 MG Capsule 200 MG PO ×3 (05:55→21:00)
[2024-10-11 06:08] LABS: Anion Gap 10 (5-15); BUN 61 mg/dL (4-19); BUN/Creat Ratio 38.4 RATIO (10-20); Calcium,Total 8.2 mg/dL (7.6-11.0); Carbon Dioxide 19.2 mmol/L (21.0-32.0); Chloride 109 mmol/L (98-108); Creatinine, Serum 1.59 mg/dL (0.70-1.20); EST Glomerular Filtration Rate 47 (>60); Estimated Creatinine Clearance 58.66 ml/min (50-250); Glucose 158 mg/dL (70-99); Potassium 4.4 mmol/L (3.3-5.1); Sodium Level 139 mmol/L (133-145)
[2024-10-11] MEDS: Budesonide Respules 0.5 MG/2 ML AMPUL.NEB. INHALATION (06:59)
[2024-10-11] MEDS: Albuterol 2.5 MG/3 ML VIAL.NEB. INHALATION (06:59)
[2024-10-11 07:00] LABS: Platelet Estimate MOD DEC (ADEQ); Platelet Morphology LARGE
[2024-10-11 07:01] LABS: Bedside Glucose 146 mg/dL (74-106)
--- NOTE | 2024-10-11 09:31 | CASEMGMT ---
Discharge Planning Updates sent to Darwin Roach. Taisha Schaefer DC Planning Asst.
--- NOTE | 2024-10-11 09:36 | CASEMGMT ---
Pt does not need precert to return to [facility] unless he has skilled need. SW updated. Taisha Schaefer DC Planning Asst.
[2024-10-11] MEDS: Cefepime HCl 1 GM in 0.9% Normal Saline (50mL MB+) 50 ML IV ×2 (09:55→21:13)
[2024-10-11] MEDS: Cyanocobalamin 500 MCG Tablet PO (09:56)
[2024-10-11] MEDS: Lactulose 20 GM/30 ML UDC PO (09:56)
[2024-10-11] MEDS: amLODIPine 5 MG Tablet PO (09:57)
--- NOTE | 2024-10-11 10:47 | PCM.PN.HOSP ---
Reason for Visit Reason for Visit: Diagnoses Sepsis, unspecified organism (10/10/24) Urinary tract infection, site not specified (10/10/24) Subjective Subjective Patient is a 69-year-old gentleman who was admitted with lower abdominal pain as well as penile pain in the setting of an indwelling Cohen catheter. An assessment of sepsis was made admitted to regular nursing floor for further management Objective Data Objective Data Vital Signs: Vital Signs Temp Pulse Resp BP Pulse Ox O2 Del Method O2 Flow Rate 98.0 F 72 18 116/62 92 Room Air 2 10/11/24 07:45 10/11/24 07:45 10/11/24 07:45 10/11/24 07:45 10/11/24 07:45 10/11/24 07:49 10/10/24 18:00 FiO2 21 10/11/24 02:51 Oxygen Flow Rate (L/min) 2 Oxygen Delivery Method Room Air Weight: 130.4 kg Body Mass Index (BMI) 42.4 Intake & Output: Intake and Output for Last 24 Hours 10/09/24 10/10/24 10/11/24 23:59 23:59 23:59 Intake Total 1450 / 1650 1420 / 1420 Output Total 1050 / 1050 Balance 1450 / 1050 370 / 370 Lab / Micro Data 10/11/24 04:18 10/11/24 04:18 Labs: Laboratory Results - last 24 hr 10/10/24 15:40: WBC 3.7 L, RBC 4.20 L, Hgb 11.7 L, Hct 35.8 L, MCV 85.2, MCH 27.9, MCHC 32.7, RDW Std Deviation 51.7 H, RDW Coeff of Carlito 16.7 H, Plt Count 59 L, MPV TNP, Immature Gran % (Auto) 0.300, Neut % (Auto) 87.7 H, Lymph % (Auto) 6.7 L, [place] % (Auto) 3.2, Eos % (Auto) 0.0, Baso % (Auto) 2.1 H, Absolute Neuts (auto) 3.3, Absolute Lymphs (auto) 0.25 L, Nucleated RBC % 0, Differential Comment SCANNED, PT 19.6 H, INR 1.6, APTT 35.3, Sodium 138, Potassium 4.5, Chloride 104, Carbon Dioxide 20.3 L, Anion Gap 14, BUN 69 H, Creatinine 2.06 H, Estim Creat Clear Calc 45.27 L, Est GFR (MDRD) Non-Af 34 L, BUN/Creatinine Ratio 33.3 H, Glucose 178 H, Lactic Acid 3.7 H*, Calcium 9.0, Total Bilirubin 0.61, AST 53 H, ALT 33, Alkaline Phosphatase 105, Total Protein 6.6, Albumin 3.1 L, Globulin 3.5, Albumin/Globulin Ratio 0.9 10/10/24 16:15: Urine Color Red, Urine Clarity Cloudy, Urine pH 9.0, Ur Specific [place] 1.015, Urine Protein 500 H, Urine Glucose (UA) Normal, Urine Ketones Negative, Urine Occult Blood 250 H, Urine Nitrite Negative, Urine Bilirubin Negative, Urine Urobilinogen Normal, Ur Leukocyte Esterase 500 H, Urine RBC > 100 SEEN, Urine WBC 5-10 SEEN, Ur Squamous Epith Cells 0 SEEN, Urine Bacteria 2+, Urine Mucus 0 SEEN 10/10/24 18:44: POC Glucose 161 H 10/10/24 20:25: Lactic Acid < 1.0 10/10/24 21:45: POC Glucose 181 H 10/11/24 04:18: WBC 5.3, RBC 3.60 L, Hgb 10.0 L, Hct 30.6 L, MCV 85.0, MCH 27.8, MCHC 32.7, RDW Std Deviation 52.5 H, RDW Coeff of Carlito 16.8 H, Plt Count 57 L, MPV TNP, Immature Gran % (Auto) 0.400, Neut % (Auto) 74.0 H, Lymph % (Auto) 13.0 L, [place] % (Auto) 12.0 H, Eos % (Auto) 0.2, Baso % (Auto) 0.4, Absolute Neuts (auto) 3.9, Absolute Lymphs (auto) 0.69 L, Nucleated RBC % 0, Platelet Estimate MOD DEC, Plt Morphology Comment LARGE, Sodium 139, Potassium 4.4, Chloride 109 H, Carbon Dioxide 19.2 L, Anion Gap 10, BUN 61 H, Creatinine 1.59 H, Estim Creat Clear Calc 58.66, Est GFR (MDRD) Non-Af 47 L, BUN/Creatinine Ratio 38.4 H, Glucose 158 H, Calcium 8.2 10/11/24 05:53: POC Glucose 146 H Micro: Microbiology 10/10/24 16:12 Blood Culture (Wb) - Venous Blood Culture - Preliminary 10/10/24 15:40 Blood Culture (Wb) - Venous Blood Culture - Preliminary 10/10/24 16:00 Mucosa - Nose SARS-CoV-2, Influenza & RSV (PCR) - Final Radiography Diagnostic Testing: Radiology Impression Chest X-Ray 10/10/24 17:00 IMPRESSION: No Acute Findings. [facility]vis [facility] 10/10/24 17:35 IMPRESSION: 1. No acute abdominopelvic finding. 2. Right inguinal hernia containing a portion of the urinary bladder, unchanged since prior examination. The urinary bladder is decompressed by indwelling Cohen catheter. 3. Stable large lower pole renal exophytic mass with left adrenal nodule. This is incompletely evaluated by noncontrast examination, however findings are most compatible with renal neoplasm such as renal cell carcinoma. Correlation with outpatient nonemergent CT or MRI abdomen (renal protocol) should be performed for further evaluation. 4. Mild splenomegaly. 5. Clustered nodularity within the left lower lobe, which may be represent infectious/inflammatory etiology such best aspiration pneumonia. Reading Location: [facility] Physical Exam Narrative GENERAL: Significantly flat affect HEENT: Atraumatic; normocephalic EYES; Anicteric, Normal Conjunctiva NECK; supple, normal thyroid, RESPIRATORY: Diminished to auscultation CARDIOVASCULAR: Regular S1 S2, GI: soft, normoactive bowel sounds, : No Renal angle tenderness; EXTREMITIES: No edema, no clubbing, MUSCULOSKELETAL: no muscle wasting NEURO: Awake; no lateralizing signs. SKIN: No Rash PSYCH; Flat affect Assessment & Plan Assessment/Plan (1) Sepsis: (2) UTI (urinary tract infection): PLAN: Plan Patient is a 69-year-old gentleman who was admitted with lower abdominal pain as well as penile pain in the setting of an indwelling Cohen catheter. An assessment of sepsis was made admitted to regular nursing floor for further management 1. Sepsis ? Secondary to acute cystitis secondary to presence of an indwelling Cohen catheter. Patient was managed with protocol with IV fluid resuscitation, cultures including urine and blood and antibiotic therapy. Response to therapy monitored with serial lactic acid levels 2. Hematuria ? Present on admission secondary to acute cystitis. 3. Acute kidney injury ? Patient patient has a baseline creatinine 1.08 creatinine on admission was 2.06 patient started on IV fluids with subsequent monitoring of electrolyte 4. Dyslipidemia ?Patient is on statin therapy, continued at home dose 5. Hypertension ? Blood pressure controlled, home medications continued with dose adjustment as needed 6. Diabetes mellitus type II -patient's oral hypoglycemics held. Placed on long acting insulin, Accu-Cheks a.c. and at bedtime and covered with sliding scale insulin 8. BPH ? With obstructive symptoms patient is on Flomax in addition to chronic indwelling Cohen catheter 8. History of previous DVT ? Patient is on apixaban which was held on admission given hematuria 9. Paroxysmal atrial fibrillation/flutter ? Rate controlled on systemic anticoagulation with apixaban which is currently being held given reasons above 10. Class III obesity with BMI of 42.5 ? Complicating care weight loss advised 11. COPD ? Currently not in exacerbation aerosol treatments as needed 12. Left renal mass CT obtained did show stable large lower pole renal exophytic mass with left adrenal nodule. This is incompletely evaluated by noncontrast examination, however findings are most compatible with renal neoplasm such as renal cell carcinoma. Consult placed to urology 13. Obstructive sleep apnea ? Patient is on CPAP 15. Mood disorder not specified ? Patient is on lurasidone 16. Peripheral vascular disease ? Patient is on aspirin atorvastatin and apixaban 17. DVT prophylaxis ? Patient is on apixaban which is currently being held given hematuria plan is to resume once hematuria resolved Time spent in the patient's overall evaluation,decision-making process, review of diagnostic data, adjustment of management, discussion with other providers, nursing nursing and ancillary staff involved in patient's care documentation, 52 minutes Charges/Coding Visit Charges Inpatient E&M: 99231 [facility] Hosp L3
[2024-10-11 11:20] LABS: Bedside Glucose 162 mg/dL (74-106)
[2024-10-11] MEDS: Insulin Lispro 100 UNIT/ML INSULN.PEN SC ×3 (11:29→21:05)
[2024-10-11] MEDS: Ondansetron 4 MG/2 ML Vial IV (14:57)
[2024-10-11 16:18] LABS: Bedside Glucose 176 mg/dL (74-106)
--- NOTE | 2024-10-11 20:47 | CPS ---
Patient refused PAP therapy for night time use.
[2024-10-11] MEDS: traZODone 100 MG Tablet PO (20:57)
[2024-10-11] MEDS: Donepezil HCl 5 MG Tablet PO (20:57)
[2024-10-11] MEDS: Tamsulosin HCl 0.4 MG Capsule PO (20:58)
[2024-10-11] MEDS: Atorvastatin Calcium 20 MG Tablet PO (20:58)
[2024-10-11] MEDS: LURASIDONE HCL 40 MG TABLET PO (20:59)
[2024-10-11] MEDS: MELATONIN 3 MG TABLET 6 MG PO (20:59)
[2024-10-11] MEDS: Acetaminophen 325 MG Tablet 650 MG PO (20:59)
[2024-10-11] MEDS: Insulin Glargine-YFGN 100 UNIT/ML Pen 23 UNIT SC (21:04)
[2024-10-11 22:04] LABS: Bedside Glucose 166 mg/dL (74-106)
[2024-10-12 00:20] VITALS: PULSE 82; RESP 16; O2SAT 94
[2024-10-12 02:59] VITALS: PULSE 82
[2024-10-12] MEDS: 0.9% Normal Saline (1000mL) 1,000 ML 150 ML IV ×2 (03:22→10:50)
[2024-10-12 03:38] VITALS: BP 123/69; PULSE 64; RESP 22; TEMP 36.7; O2SAT 94
[2024-10-12 05:57] LABS: Absolute Lymphocyte Count 0.67 X10^3/uL (0.83-4.51); Absolute Neutrophil Count 2.3 X10^3/uL (2.0-7.7); Basophil# 0.01 X10^3/uL; Basophil% 0.3 % (0-1); Eosinophil# 0.05 X10^3/uL; Eosinophils% 1.3 % (0-5); Hematocrit 29.3 % (40-54); Hemoglobin 9.3 g/dL (13.0-16.5); Lymphocyte # 0.67 X10^3/ul (0.83-4.51); Lymphocyte % 18.1 % (19-41); Mean Corp Hgb Conc 31.7 g/dL (32-36); Mean Corpuscular Hgb 27.4 pg (27.0-32.0); Mean Corpuscular Volume 86.4 fL (80-94); Monocyte# 0.71 X10^3/uL; Monocyte% 19.1 % (0-10); NRBC Flagged by Analyzer 0 % (0-5); Neutrophil # 2.25 X10^3/uL (2.7-7.7); Neutrophil % 60.7 % (47-70); POSITIVE COUNT YES; Platelet Count 56 K/mm3 (150-450); RBC Distribution Width CV 17.1 % (11.6-14.6); RBC Distribution Width SD 54.2 fl (35.1-43.9); Red Blood Count 3.39 M/mm3 (4.6-6.2); White Blood Count 3.7 K/mm3 (4.4-11.0)
[2024-10-12] MEDS: Gabapentin 100 MG Capsule 200 MG PO (06:28)
[2024-10-12 06:42] LABS: Anion Gap 7 (5-15); BUN 41 mg/dL (4-19); BUN/Creat Ratio 36.8 RATIO (10-20); Calcium,Total 8.2 mg/dL (7.6-11.0); Carbon Dioxide 21.7 mmol/L (21.0-32.0); Chloride 112 mmol/L (98-108); Creatinine, Serum 1.11 mg/dL (0.70-1.20); EST Glomerular Filtration Rate 72 (>60); Estimated Creatinine Clearance 84.02 ml/min (50-250); Glucose 117 mg/dL (70-99); Magnesium 2.4 mg/dL (1.5-2.2); Potassium 4.3 mmol/L (3.3-5.1); Sodium Level 141 mmol/L (133-145)
[2024-10-12 06:53] LABS: Bedside Glucose 114 mg/dL (74-106)
[2024-10-12 07:11] VITALS: PULSE 86; RESP 18; O2SAT 94
[2024-10-12] MEDS: Budesonide Respules 0.5 MG/2 ML AMPUL.NEB. INHALATION (07:11)
--- NOTE | 2024-10-12 07:11 | CPS ---
Pt refused Albuterol but did take Pulmicort because it is a substitute for his Symbicort that is compliant with at home.
[2024-10-12 09:05] VITALS: BP 119/61; PULSE 68; RESP 18; TEMP 36.3; O2SAT 95
[2024-10-12] MEDS: Cefepime HCl 1 GM in 0.9% Normal Saline (50mL MB+) 50 ML IV (09:12)
[2024-10-12] MEDS: Lactulose 20 GM/30 ML UDC PO (09:12)
[2024-10-12] MEDS: amLODIPine 5 MG Tablet PO (09:13)
[2024-10-12] MEDS: Cyanocobalamin 500 MCG Tablet PO (09:13)
[2024-10-12 11:25] LABS: Bedside Glucose 146 mg/dL (74-106)
--- NOTE | 2024-10-12 11:35 | PCM.TXEXTCAR ---
Diet Diet Order/Speech Therapy: 10/10/24 18:51 Diet: Cardiac: Calorie-Controlled Food consistency:: Regular Liquid Consistency:: Regular/Thin How many daily calories?: 1800 calorie Routine Orders/Code Status Code Status: DNRCC-A DC O2, CPAP, BIPAP needs Home O2 Discharge instructions: No Wound(s) Right lateral calf: Wound Type: Stasis Ulcer Problem/Diagnosis (1) Sepsis: Status: Acute Code(s): A41.9 - Sepsis, unspecified organism (2) UTI (urinary tract infection): Status: Acute Code(s): N39.0 - Urinary tract infection, site not specified Plan Patient is a 69-year-old gentleman who was admitted with lower abdominal pain as well as penile pain in the setting of an indwelling Cohen catheter. An assessment of sepsis was made admitted to regular nursing floor for further management 1. Sepsis ? Secondary to acute cystitis with Proteus mirabilis secondary to presence of an indwelling Cohen catheter. Patient was managed with protocol with IV fluid resuscitation, cultures including urine and blood and antibiotic therapy. Response to therapy monitored with serial lactic acid levels 2. Hematuria ? Present on admission secondary to acute cystitis. 3. Acute kidney injury ? Patient patient has a baseline creatinine 1.08 creatinine on admission was 2.06 patient started on IV fluids with subsequent monitoring of electrolyte 4. Dyslipidemia ?Patient is on statin therapy, continued at home dose 5. Hypertension ? Blood pressure controlled, home medications continued with dose adjustment as needed 6. Diabetes mellitus type II -patient's oral hypoglycemics held. Placed on long acting insulin, Accu-Cheks a.c. and at bedtime and covered with sliding scale insulin 8. BPH ? With obstructive symptoms patient is on Flomax in addition to chronic indwelling Cohen catheter 8. History of previous DVT ? Patient is on apixaban which was held on admission given hematuria 9. Paroxysmal atrial fibrillation/flutter ? Rate controlled on systemic anticoagulation with apixaban which is currently being held given reasons above 10. Class III obesity with BMI of 42.5 ? Complicating care weight loss advised 11. COPD ? Currently not in exacerbation aerosol treatments as needed 12. Left renal mass CT obtained did show stable large lower pole renal exophytic mass with left adrenal nodule. This is incompletely evaluated by noncontrast examination, however findings are most compatible with renal neoplasm such as renal cell carcinoma. Consult placed to urology 13. Obstructive sleep apnea ? Patient is on CPAP 15. Mood disorder not specified ? Patient is on lurasidone 16. Peripheral vascular disease ? Patient is on aspirin atorvastatin and apixaban 17. DVT prophylaxis ? Patient is on apixaban which is currently being held given hematuria plan is to resume once hematuria resolved Time spent in the patient's overall evaluation,decision-making process, review of diagnostic data, adjustment of management, discussion with other providers, nursing nursing and ancillary staff involved in patient's care documentation, 52 minutes Allergies/Procedures Done in Hospital Allergies ibuprofen (From Nuprin) Allergy (Verified 10/10/24 15:27) Unknown Type of Care/Length of Stay Estimated LOS: Convalescent Care Less Than 30 days Type of Care Needed: Intermediate Rehab Potential: Fair Prognosis: Fair Additional Orders/Day of Discharge Day of Discharge: 10/12/24 Dietary and Speech Recommendations Dietitian Recommendations/Changes: Continue 1800CCD/Cardiac diet to manage medical conditions. Discharge Plan Admission Admit Date/Time: 10/10/24 17:46 Attending Provider: Marco Neely Primary Care Provider: Kathleen Herzog Consulting Providers: Monika Garcias Discharge Orders/Prescriptions Prescriptions: New cefpodoxime 100 mg tablet 100 mg PO BID Qty: 20 0RF Rx Instructions: must administer with a meal/food Continued tamsulosin 0.4 mg capsule 0.4 mg PO QHS aspirin 81 MG tablet,delayed release (DR/EC) 81 mg PO DAILY atorvastatin 20 mg tablet 20 mg PO QHS amlodipine 5 mg tablet 5 mg PO DAILY Eliquis 5 mg tablet 5 mg PO BID melatonin 3 mg tablet 6 mg PO QHS acetaminophen [Tylenol] 325 mg tablet 650 mg PO Q4H PRN (Reason: pain) insulin glargine [Lantus Solostar U-100 Insulin] 100 unit/mL (3 mL) insulin pen 23 unit subcut QHS Rx Instructions: sliding scale cyanocobalamin (vitamin B-12) 1,000 mcg capsule 500 mcg PO DAILY donepezil 5 mg tablet 5 mg PO QHS gabapentin 100 mg capsule 200 mg PO TID insulin lispro [Humalog KwikPen Insulin] 100 unit/mL insulin pen See Protocol subcut TID Protocol: 6. Sliding Scale Insulin Custom Condition: 151-200 Dose/Route: 2 UNITS Condition: 201-250 Dose/Route: 4 UNITS Condition: 251-300 Dose/Route: 6 UNITS Condition: 301-350 Dose/Route: 8 UNITS Condition: 351-400 Dose/Route: 10 Protocol Text: Custom Sliding Scale Rx Instructions: sliding scale lurasidone 40 mg tablet 40 mg PO QHS Rx Instructions: must administer with food (at least 350 calories) potassium chloride 10 mEq capsule, extended release 10 meq PO BID torsemide 20 mg tablet 20 mg PO BID lactulose 20 gram/30 mL solution 30 ml PO DAILY budesonide-formoterol [Symbicort] 160-4.5 mcg/actuation HFA aerosol inhaler 1 puff inhalation DAILY trazodone 100 mg tablet 100 mg PO QHS Referrals / Follow Up: Kathleen Herzog MD [Primary Care Provider] - Within 2 Weeks Douglas Santana MD [Med Staff - Active Staff] - Within 2 Weeks Disposition Disposition (needs filled in before D/C Order can be placed): [facility]
--- NOTE | 2024-10-12 11:40 | PCM.DC.SUM ---
Providers Date of Admission: 10/10/24 Date of Discharge: 10/12/24 Primary Care Physician: Dr. 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 An assessment of sepsis was made admitted to regular nursing floor for further management 1. Sepsis ? Secondary to acute cystitis with Proteus mirabilis secondary to presence of an indwelling Cohen catheter. Patient was managed with protocol with IV fluid resuscitation, cultures including urine and blood and antibiotic therapy. Response to therapy monitored with serial lactic acid levels 2. Hematuria ? Present on admission secondary to acute cystitis. 3. Acute kidney injury ? Patient patient has a baseline creatinine 1.08 creatinine on admission was 2.06 patient started on IV fluids with subsequent monitoring of electrolyte 4. Dyslipidemia ?Patient is on statin therapy, continued at home dose 5. Hypertension ? Blood pressure controlled, home medications continued with dose adjustment as needed 6. Diabetes mellitus type II -patient's oral hypoglycemics held. Placed on long acting insulin, Accu-Cheks a.c. and at bedtime and covered with sliding scale insulin 8. BPH ? With obstructive symptoms patient is on Flomax in addition to chronic indwelling Cohen catheter 8. History of previous DVT ? Patient is on apixaban which was held on admission given hematuria 9. Paroxysmal atrial fibrillation/flutter ? Rate controlled on systemic anticoagulation with apixaban which is currently being held given reasons above 10. Class III obesity with BMI of 42.5 ? Complicating care weight loss advised 11. COPD ? Currently not in exacerbation aerosol treatments as needed 12. Left renal mass CT obtained did show stable large lower pole renal exophytic mass with left adrenal nodule. This is incompletely evaluated by noncontrast examination, however findings are most compatible with renal neoplasm such as renal cell carcinoma. Consult placed to urology 13. Obstructive sleep apnea ? Patient is on CPAP 15. Mood disorder not specified ? Patient is on lurasidone 16. Peripheral vascular disease ? Patient is on aspirin atorvastatin and apixaban 17. DVT prophylaxis ? Patient is on apixaban which is currently being held given hematuria plan is to resume once hematuria resolved Time spent in the patient's overall evaluation,decision-making process, review of diagnostic data, adjustment of management, discussion with other providers, nursing nursing and ancillary staff involved in patient's care documentation, 36 minutes Medications at Discharge Home Medications aspirin 81 mg tablet,delayed release 81 mg PO DAILY AFIB 03/17/19 amlodipine 5 mg tablet 5 mg PO DAILY AFIB 10/28/23 apixaban 5 mg tablet (Eliquis) 5 mg PO BID AFIB 10/28/23 atorvastatin 20 mg tablet 20 mg PO QHS HYPERLIPIDEMIA 10/28/23 melatonin 3 mg tablet 6 mg PO QHS INSOMNIA 10/28/23 tamsulosin 0.4 mg capsule 0.4 mg PO QHS PROSTATIC HYPERPLASIA 12/22/23 acetaminophen 325 mg tablet (Tylenol) 650 mg PO Q4H PRN pain 06/01/24 cyanocobalamin (vitamin B-12) 1,000 mcg capsule 500 mcg PO DAILY 06/01/24 insulin glargine 100 unit/mL (3 mL) subcutaneous pen (Lantus Solostar U-100 Insulin) 23 unit subcut QHS 06/01/24 donepezil 5 mg tablet 5 mg PO QHS MEMORY 08/16/24 gabapentin 100 mg capsule 200 mg PO TID NEUROPATHY 08/16/24 insulin lispro 100 unit/mL subcutaneous pen (Humalog KwikPen (U-100) Insulin) See Protocol subcut TID 08/16/24 lurasidone 40 mg tablet 40 mg PO QHS MOOD 08/16/24 potassium chloride 10 mEq capsule,extended release 10 meq PO BID 08/16/24 torsemide 20 mg tablet 20 mg PO BID HEART 08/16/24 budesonide-formoterol HFA 160 mcg-4.5 mcg/actuation aerosol inhaler (Symbicort) 1 puff inhalation DAILY COPD 09/16/24 lactulose 20 gram/30 mL oral solution 30 ml PO DAILY CONSTIPATION 09/16/24 trazodone 100 mg tablet 100 mg PO QHS insomnia 09/16/24 cefpodoxime 100 mg tablet 100 mg PO BID #20 tabs 10/12/24 Physical Exam Narrative GENERAL: Significantly flat affect HEENT: Atraumatic; normocephalic EYES; Anicteric, Normal Conjunctiva NECK; supple, normal thyroid, RESPIRATORY: Diminished to auscultation CARDIOVASCULAR: Regular S1 S2, GI: soft, normoactive bowel sounds, : No Renal angle tenderness; EXTREMITIES: No edema, no clubbing, MUSCULOSKELETAL: no muscle wasting NEURO: Awake; no lateralizing signs. SKIN: No Rash PSYCH; Flat affect Weight / BMI Weight Weight: 130.4 kg Body Mass Index (BMI) 42.4 ABG / Lab / Microbiology Data 10/12/24 05:30 10/12/24 05:30 Laboratory: Laboratory Results - last 24 hr 10/10/24 16:15: Urine Color Red, Urine Clarity Cloudy, Urine pH 9.0, Ur Specific [place] 1.015, Urine Protein 500 H, Urine Glucose (UA) Normal, Urine Ketones Negative, Urine Occult Blood 250 H, Urine Nitrite Negative, Urine Bilirubin Negative, Urine Urobilinogen Normal, Ur Leukocyte Esterase 500 H, Urine RBC > 100 SEEN, Urine WBC 5-10 SEEN, Ur Squamous Epith Cells 0 SEEN, Urine Bacteria 2+, Urine Mucus 0 SEEN 10/11/24 15:54: POC Glucose 176 H 10/11/24 20:54: POC Glucose 166 H 10/12/24 05:30: WBC 3.7 L, RBC 3.39 L, Hgb 9.3 L, Hct 29.3 L, MCV 86.4, MCH 27.4, MCHC 31.7 L, RDW Std Deviation 54.2 H, RDW Coeff of Carlito 17.1 H, Plt Count 56 L, MPV TNP, Immature Gran % (Auto) 0.500, Neut % (Auto) 60.7, Lymph % (Auto) 18.1 L, [place] % (Auto) 19.1 H, Eos % (Auto) 1.3, Baso % (Auto) 0.3, Absolute Neuts (auto) 2.3, Absolute Lymphs (auto) 0.67 L, Nucleated RBC % 0, Sodium 141, Potassium 4.3, Chloride 112 H, Carbon Dioxide 21.7, Anion Gap 7, BUN 41 H, Creatinine 1.11, Estim Creat Clear Calc 84.02, Est GFR (MDRD) Non-Af 72, BUN/Creatinine Ratio 36.8 H, Glucose 117 H, Calcium 8.2, Phosphorus 3.0, Magnesium 2.4 H 10/12/24 06:31: POC Glucose 114 H 10/12/24 11:08: POC Glucose 146 H Microbiology: Microbiology 10/10/24 16:12 Blood Culture (Wb) - Right Wrist Blood Culture - Preliminary Gram negative cleo 10/10/24 15:40 Blood Culture (Wb) - Right Hand Blood Culture - Preliminary Gram negative cleo 10/10/24 16:15 Urine, Clean Catch Urine Culture - Final Proteus mirabilis 10/10/24 16:00 Mucosa - Nose SARS-CoV-2, Influenza & RSV (PCR) - Final D/C Instructions Discharge Diet: 1800 Calorie Control Diet Discharge Activity: Return to Normal Activity Call your doctor if you observe: Fever of 101 or Higher, Shortness of breath, Fainting spells and Chest pain DC O2, CPAP, BIPAP Needs PSN CPAP & BiPAP: BiPAP & CPAP Settings per PSN Mode CPAP 10/11/24 22:20 Bipap Delivery Device Face Mask 10/11/24 02:51 BiPAP Expiratory Pressure 12 10/11/24 22:20 Fraction of Inspired Oxygen ( 21 10/11/24 02:51 FIO2) Home O2 Discharge instructions: No Meaningful Use Info Meaningful Use Meaningful Use Diagnoses (Choose all that apply): None applicable Ischemic Stroke Statin Dosing Therapy Reference: STATIN DOSE THERAPY REFERENCE: * Patients > 75 years receive moderate or high dose statin therapy. * Patients 75 years or YOUNGER should receive HIGH intensity statin dose unless contraindicated. You will be required to document reason for non-treatment if statin daily dose does not meet guidelines. HIGH DOSE STATIN THERAPY DAILY Atorvastatin > than or = to 40 mg Rosuvastatin > than or = to 20 mg Amlodipine + Atorvastatin > than or = to 2.5/40 mg Ezetimibe + Simvastatin 10/80 mg Simvastatin 80mg Discharge Plan Admission Admit Date/Time: 10/10/24 17:46 Attending Provider: Marco Neely Primary Care Provider: Kathleen Herzog Consulting Providers: Monika Garcias Discharge Orders/Prescriptions Prescriptions: New cefpodoxime 100 mg tablet 100 mg PO BID Qty: 20 0RF Rx Instructions: must administer with a meal/food Continued tamsulosin 0.4 mg capsule 0.4 mg PO QHS aspirin 81 MG tablet,delayed release (DR/EC) 81 mg PO DAILY atorvastatin 20 mg tablet 20 mg PO QHS amlodipine 5 mg tablet 5 mg PO DAILY Eliquis 5 mg tablet 5 mg PO BID melatonin 3 mg tablet 6 mg PO QHS acetaminophen [Tylenol] 325 mg tablet 650 mg PO Q4H PRN (Reason: pain) insulin glargine [Lantus Solostar U-100 Insulin] 100 unit/mL (3 mL) insulin pen 23 unit subcut QHS Rx Instructions: sliding scale cyanocobalamin (vitamin B-12) 1,000 mcg capsule 500 mcg PO DAILY donepezil 5 mg tablet 5 mg PO QHS gabapentin 100 mg capsule 200 mg PO TID insulin lispro [Humalog KwikPen Insulin] 100 unit/mL insulin pen See Protocol subcut TID Protocol: 6. Sliding Scale Insulin Custom Condition: 151-200 Dose/Route: 2 UNITS Condition: 201-250 Dose/Route: 4 UNITS Condition: 251-300 Dose/Route: 6 UNITS Condition: 301-350 Dose/Route: 8 UNITS Condition: 351-400 Dose/Route: 10 Protocol Text: Custom Sliding Scale Rx Instructions: sliding scale lurasidone 40 mg tablet 40 mg PO QHS Rx Instructions: must administer with food (at least 350 calories) potassium chloride 10 mEq capsule, extended release 10 meq PO BID torsemide 20 mg tablet 20 mg PO BID lactulose 20 gram/30 mL solution 30 ml PO DAILY budesonide-formoterol [Symbicort] 160-4.5 mcg/actuation HFA aerosol inhaler 1 puff inhalation DAILY trazodone 100 mg tablet 100 mg PO QHS Referrals / Follow Up: Kathleen Herzog MD [Primary Care Provider] - Within 2 Weeks Douglas Santana MD [Med Staff - Active Staff] - Within 2 Weeks Disposition Disposition (needs filled in before D/C Order can be placed): Assisted Facility Charges/Coding Visit Charges Inpatient E&M: 04903 Disch Hosp >30min
--- NOTE | 2024-10-12 12:00 | CASEMGMT ---
Discharge Planning Discharge orders, signed med list, and transport time sent to [facility]. Physicians will transport pt by wheelchair at 12:30p. Nursing, SW, pt, and his son/HC POA (Hu) updated. Taisha Schaefer DC Planning Asst.
--- NOTE | 2024-10-12 12:50 | NURSING ---
Multiple attempts made to call report to [facility]. Call is disconnected when being transferred to the nurses station x2.
[2024-10-12 12:58] VITALS: BP 133/68; PULSE 68; RESP 20; TEMP 36.6; O2SAT 95
--- NOTE | 2024-10-12 13:59 | NURSING ---
Report given to Michelle Roach.
--- NOTE | 2024-10-12 14:14 | PHA.DC_ITS ---
Pharmacy [place] Med Reconciliation Pharmacy Service has performed discharge medication reconciliation for this patient upon transfer to [facility]. The patient's discharge medication list was reviewed for discrepancies and discrepancies were resolved. Medications at Discharge Home Medications aspirin 81 mg tablet,delayed release 81 mg PO DAILY AFIB 03/17/19 amlodipine 5 mg tablet 5 mg PO DAILY AFIB 10/28/23 apixaban 5 mg tablet (Eliquis) 5 mg PO BID AFIB 10/28/23 atorvastatin 20 mg tablet 20 mg PO QHS HYPERLIPIDEMIA 10/28/23 melatonin 3 mg tablet 6 mg PO QHS INSOMNIA 10/28/23 tamsulosin 0.4 mg capsule 0.4 mg PO QHS PROSTATIC HYPERPLASIA 12/22/23 acetaminophen 325 mg tablet (Tylenol) 650 mg PO Q4H PRN pain 06/01/24 cyanocobalamin (vitamin B-12) 1,000 mcg capsule 500 mcg PO DAILY 06/01/24 insulin glargine 100 unit/mL (3 mL) subcutaneous pen (Lantus Solostar U-100 Insulin) 23 unit subcut QHS 06/01/24 donepezil 5 mg tablet 5 mg PO QHS MEMORY 08/16/24 gabapentin 100 mg capsule 200 mg PO TID NEUROPATHY 08/16/24 insulin lispro 100 unit/mL subcutaneous pen (Humalog KwikPen (U-100) Insulin) See Protocol subcut TID 08/16/24 lurasidone 40 mg tablet 40 mg PO QHS MOOD 08/16/24 potassium chloride 10 mEq capsule,extended release 10 meq PO BID 08/16/24 torsemide 20 mg tablet 20 mg PO BID HEART 08/16/24 budesonide-formoterol HFA 160 mcg-4.5 mcg/actuation aerosol inhaler (Symbicort) 1 puff inhalation DAILY COPD 09/16/24 lactulose 20 gram/30 mL oral solution 30 ml PO DAILY CONSTIPATION 09/16/24 trazodone 100 mg tablet 100 mg PO QHS insomnia 09/16/24 cefpodoxime 100 mg tablet 100 mg PO BID #20 tabs 10/12/24
--- NOTE | 2024-10-12 15:32 | CHAPLAIN ---
Type of Pastoral Visit _x__ Initial Visit ___ Follow-up Visit ___ On-call Visit ___ General Patient Visit ___ Spiritual Assessment ___ Family Conference ___ Bereavement ___ Rapid Response ___ Code Blue ___ Other (describe below) Pastoral Care Referral From _x__ Patient ___ Family ___ Nurse ___ Physician ___ [employer] Wire Weaver ___ Electrotype Molder ___ Other (describe below) Sacrament/Intervention _x__ Active listening ___ Anointing ___ Bahai ___ Bereavement ___ Communion _x__ Aziza exploration ___ _x__ Life review _x__ Prayer ___ Reconciliation ___ Sacrament of Sick _x__ Supportive presence ___ Wedding ___ Other (describe below) Pastoral Comments patient has been seen before; pt is sitting in the chair and is quite lethargic and his voice is quiet; pt appears and speaks as if he has very little energy; pt admits to discouragement; pt says that he only has one son in this state and that he doesn't come to visit him in the ECF; patient is a person of aziza as evidenced in previous visits and in his comments; pt is reminded of the scriptures and is given prayer; pt is asked about how he can find more contentment in the ECF; pt says thank you for the visit
== END 2024-10-12 14:25 | disposition skilled nursing facility (03) | DRG 698 ==
LOC: ED 17:38 → PCU 18:05
PROVIDERS: Admitting Provider Student in an Organized Health Care Education/Training Program; Emergency Provider Emergency Medicine; PCP Internal Medicine; Visit Provider Internal Medicine
DX: T83.511A Infection and inflammatory reaction due to indwelling urethral catheter, initial encounter (principal); A41.9 Sepsis, unspecified organism; D61.818 Other pancytopenia; L97.219 Non-pressure chronic ulcer of right calf with unspecified severity; N17.9 Acute kidney failure, unspecified; I13.0 Hypertensive heart and chronic kidney disease with heart failure and stage 1 through stage 4 chronic kidney disease, or unspecified chronic kidney disease; N18.4 Chronic kidney disease, stage 4 (severe); Z68.41 Body mass index [BMI] 40.0-44.9, adult; F03.918 Unspecified dementia, unspecified severity, with other behavioral disturbance; N13.8 Other obstructive and reflux uropathy; Z66 Do not resuscitate; I50.9 Heart failure, unspecified; E11.22 Type 2 diabetes mellitus with diabetic chronic kidney disease; J44.9 Chronic obstructive pulmonary disease, unspecified; F39 Unspecified mood [affective] disorder; I48.0 Paroxysmal atrial fibrillation; E11.51 Type 2 diabetes mellitus with diabetic peripheral angiopathy without gangrene; E78.5 Hyperlipidemia, unspecified; E11.42 Type 2 diabetes mellitus with diabetic polyneuropathy; G47.33 Obstructive sleep apnea (adult) (pediatric); E11.59 Type 2 diabetes mellitus with other circulatory complications; I87.2 Venous insufficiency (chronic) (peripheral); E11.65 Type 2 diabetes mellitus with hyperglycemia; E11.622 Type 2 diabetes mellitus with other skin ulcer; Z79.4 Long term (current) use of insulin; B95.62 Methicillin resistant Staphylococcus aureus infection as the cause of diseases classified elsewhere; D35.02 Benign neoplasm of left adrenal gland; N39.0 Urinary tract infection, site not specified; B96.4 Proteus (mirabilis) (morganii) as the cause of diseases classified elsewhere; Z87.891 Personal history of nicotine dependence; N28.89 Other specified disorders of kidney and ureter; N40.1 Benign prostatic hyperplasia with lower urinary tract symptoms; E66.813 Obesity, class 3; Z86.718 Personal history of other venous thrombosis and embolism; R31.9 Hematuria, unspecified; Y69 Unspecified misadventure during surgical and medical care; Z88.8 Allergy status to other drugs, medicaments and biological substances; Z79.82 Long term (current) use of aspirin; Z79.899 Other long term (current) drug therapy; Z79.02 Long term (current) use of antithrombotics/antiplatelets; Z79.01 Long term (current) use of anticoagulants; Z99.89 Dependence on other enabling machines and devices
CPT/HCPCS: 36415; 51702; 71045; 74176; 80048; 80053; 81001; 82962; 83605; 83735; 84100; 85025; 85610; 85730; 87040; 87077; 87086; 87088; 87149; 87186; 87631; 93005; 94640; 94660; 97162; 97166; 97535; 99285; A4216; J2405

== ENCOUNTER 2024-10-13 11:48 | Inpatient (IN) | payer MEDICARE, SELFPAY ==
[2024-10-13] VITALS (8 sets, daily range): BP systolic 128–171; BP diastolic 58–83; PULSE 54–61; RESP 16–18; TEMP 36.6–37.1; O2SAT 95–99; BMI 43.9; BMI 44.0
--- NOTE | 2024-10-13 12:31 | EX.ED.DYSGE1 ---
HPI History of Present Illness Chief Complaint: General Illness Informant: patient, EMS and SNF Narrative Narrative: 69-year-old male presenting to the emergency room. Patient is from intermediate facility. For the first 5 minutes of the history and physical I repeatedly asked the patient how he was feeling and if he knows why he is here. He looks at me huffs and then does not speak. He then tells me that he does not know why he is here but he knows that he does not want to be here. He states that he ate a little bit of breakfast this morning and then he was told he had to come back to the hospital. I see in the computer that he was admitted and discharged from the hospital. He was admitted for sepsis due to urinary tract infection that grew Proteus. He had a left wrist blood culture that grew MRSA. His left hand blood cultures have not grown anything. He does have a history of MRSA from the right leg wound back in July 26, 2024. I see on the chart he is currently taking cefpodoxime for the urinary tract infection. No report of outpatient fever. I do see that he has a history of a bioprosthetic aortic valve. Cardiology visit it was reported he had a heart murmur at that time. [facility] Medical History MRSA (methicillin resistant staph aureus) culture positive [facility] Wears dentures Depression Anxiety Walker as ambulation aid Ambulates with cane Headache Shortness of breath on exertion Cardiology follow-up encounter History of renal disease Insulin dependent diabetes mellitus Pressure ulcer Abscess Indwelling urethral catheter present Acute painful diabetic polyneuropathy Cancer Former smoker CPAP (continuous positive airway pressure) dependence On home oxygen therapy Pulmonary embolism COPD (chronic obstructive pulmonary disease) Myocardial infarct DVT (deep venous thrombosis) Anemia Ulcer with necrosis of muscle Lymphedema of left lower extremity Lymphedema of right lower extremity Edema of left lower leg Edema of right lower leg Left leg swelling Right leg swelling Chronic venous insufficiency Non-pressure ulcer of right lower extremity with necrosis of muscle BPH (benign prostatic hyperplasia) Atrial fibrillation Blood loss anemia Hypertension Hiatal hernia Diverticulosis Debility Morbid obesity with BMI of 40.0-44.9, adult Impaired mobility SOB (shortness of breath) Heart murmur Heart failure 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 2 diabetes mellitus Aortic valve disease Renal mass, left History of DVT (deep vein thrombosis) Valvular heart disease Atrial fibrillation/flutter Chronic acquired lymphedema Chronic anemia Venous insufficiency (chronic) (peripheral) Ulcer of left lower extremity with fat layer exposed Superficial thrombosis of left lower extremity Peripheral vascular disease of lower extremity with ulceration Sleep apnea Morbid obesity DM2 (diabetes mellitus, type 2) Benign essential HTN Home Medications ?Medication ?Instructions ?Recorded ?Last Taken ?Type aspirin 81 mg tablet,delayed 81 mg PO DAILY AFIB 03/17/19 Unknown History release amlodipine 5 mg tablet 5 mg PO DAILY AFIB 10/28/23 Unknown History apixaban 5 mg tablet (Eliquis) 5 mg PO BID AFIB 10/28/23 Unknown History atorvastatin 20 mg tablet 20 mg PO QHS HYPERLIPIDEMIA 10/28/23 Unknown History melatonin 3 mg tablet 6 mg PO QHS INSOMNIA 10/28/23 Unknown History tamsulosin 0.4 mg capsule 0.4 mg PO QHS PROSTATIC HYPERPLASIA 12/22/23 Unknown History acetaminophen 325 mg tablet 650 mg PO Q4H PRN pain 06/01/24 Unknown History (Tylenol) cyanocobalamin (vitamin B-12) 500 mcg PO DAILY 06/01/24 Unknown History 1,000 mcg capsule insulin glargine 100 unit/mL (3 23 unit subcut QHS 06/01/24 Unknown History mL) subcutaneous pen (Lantus Solostar U-100 Insulin) donepezil 5 mg tablet 5 mg PO QHS MEMORY 08/16/24 Unknown History gabapentin 100 mg capsule 200 mg PO TID NEUROPATHY 08/16/24 Unknown History insulin lispro 100 unit/mL See Protocol subcut TID 08/16/24 Unknown History subcutaneous pen (Humalog KwikPen (U-100) Insulin) lurasidone 40 mg tablet 40 mg PO QHS MOOD 08/16/24 Unknown History potassium chloride 10 mEq 10 meq PO BID 08/16/24 Unknown History capsule,extended release torsemide 20 mg tablet 20 mg PO BID HEART 08/16/24 Unknown History budesonide-formoterol HFA 160 1 puff inhalation DAILY COPD 09/16/24 Unknown History mcg-4.5 mcg/actuation aerosol inhaler (Symbicort) lactulose 20 gram/30 mL oral 30 ml PO DAILY CONSTIPATION 09/16/24 Unknown History solution trazodone 100 mg tablet 100 mg PO QHS insomnia 09/16/24 Unknown History cefpodoxime 100 mg tablet 100 mg PO BID #20 tabs 10/12/24 Unknown Rx Allergy/AdvReac Type Severity Reaction Status Date / Time ibuprofen (From Nuprin) Allergy Unknown Verified 10/13/24 11:49 Family History Mother Diabetes Father Cirrhosis of liver Alcoholism Surgical History History of incision and drainage History of embolic filter insertion History of right inguinal hernia repair H/O colectomy History of repair of inguinal hernia History of bladder surgery History of tonsillectomy and adenoidectomy History of right inguinal hernia repair S/P AVR (aortic valve replacement) Social History housing: penitentiary Smoking Status: Former smoker how long ago did patient quit smoking: Quit ~ 20 yrs prior, smoked age 15 until quit ~ 2 ppd. alcohol intake: never substance use type: does not use ROS ROS ED Constitutional Constitutional ED: Denies chills, fever(s) or weight loss Eyes Eyes: Denies change in vision or diplopia ENT ENT ED: Denies ear pain, rhinorrhea or sore throat Cardiovascular Cardiovascular: Denies chest pain, orthopnea, palpitations or racing heartbeat Respiratory/Chest Respiratory/Chest: Denies cough, dyspnea or orthopnea Gastrointestinal Gastrointestinal: Denies abdominal pain, diarrhea, nausea or vomiting Genitourinary Genitourinary ED: Denies dysuria, hematuria or urinary frequency Musculoskeletal Musculoskeletal: Denies arthralgias or myalgias Integumentary Denies abscess or rash Neurologic Neurologic: Denies headache(s) or weakness Psychiatric Psychiatric: Denies anxiety, depression, suicidal ideation or suicidal thoughts Endocrine Endocrinology: Denies polydipsia, polyphagia or polyuria Allergic/Immunologic Allergic/Immunologic ED: Denies mouth swelling, tongue swelling or urticaria EXAM Physical Exam Const Vital Signs: 10/13/24 11:49 10/13/24 11:52 10/13/24 11:52 Temperature 97.9 F 98.7 F Temperature Source Oral Oral Pulse Rate 58 L 60 Respiratory Rate 18 18 Respiratory Effort Normal Respiratory Pattern Normal Blood Pressure 171/69 H 171/78 H Blood Pressure Mean 103 109 Pulse Ox 98 97 Oxygen Delivery Method Room Air Room Air 10/13/24 12:52 10/13/24 13:42 Temperature 98.7 F Temperature Source Oral Pulse Rate 55 L 57 L Respiratory Rate 18 16 Respiratory Effort Respiratory Pattern Blood Pressure 136/71 H Blood Pressure Mean 92 Pulse Ox 98 Oxygen Delivery Method Room Air Positive well nourished and well developed General Appearance ED: well developed HEENT Reports normocephalic, head/scalp atraumatic and moist mucous membranes Eyes PERRL and EOMs intact bilaterally Neck no lymphadenopathy, supple and no JVD Resp normal respiratory effort and clear to auscultation bilaterally Cardio regular rate and regular rhythm Rate: other Other Details: There is a systolic heart murmur. GI normal to inspection, nondistended, normoactive bowel sounds and non-tender Palpation: soft Narrative: Indwelling Cohen catheter Back/Spine no CVA tenderness and normal ROM Extremity Extremity Narrative: Chronic wound to the right lower leg General Extremety ED: Yes edema General Extremity: edema bilateral lower extremity Details: moderate Neuro oriented x3 and CN's II-XII intact bilaterally Sensorium / Orientation: alert Motor Exam: strength 5/5 throughout Psych Psych Narrative: Agitated and angry Skin no rashes or lesions noted MDM MDM MDM Narrative Medical decision making narrative: Differential diagnosis includes sepsis blood culture contaminant/skin contaminant bacteremia pancytopenia organ dysfunction Basic blood work shows pancytopenia which is chronic white count of 4 hemoglobin of 10.7 platelet count of 80 INR is 1.3 creatinine 0.93 with a BUN of 26. Lactic acid is normal at 1 glucose 122 normal LFTs. 2 sets of blood cultures were obtained. I spoke with the hospitalist service and they would like the patient admitted and would like him to get a dose of vancomycin here in the department. History & Record Review Discussion w/independent historian: Patient Lab Data Attestation: I reviewed the patient's lab results. Labs: Laboratory Results - last 24 hr 10/13/24 12:40 WBC 4.0 L RBC 3.95 L Hgb 10.7 L Hct 34.3 L MCV 86.8 MCH 27.1 MCHC 31.2 L RDW Std Deviation 53.5 H RDW Coeff of Carlito 16.7 H Plt Count 80 L Immature Gran % (Auto) 1.500 H Neut % (Auto) 55.3 Lymph % (Auto) 17.7 L [place] % (Auto) 22.0 H Eos % (Auto) 2.5 Baso % (Auto) 1.0 Absolute Neuts (auto) 2.2 Absolute Lymphs (auto) 0.70 L Nucleated RBC % 0 PT 16.0 H INR 1.3 APTT 33.8 Sodium 138 Potassium 4.3 Chloride 107 Carbon Dioxide 23.3 Anion Gap 9 BUN 26 H Creatinine 0.93 Estim Creat Clear Calc 102.20 Est GFR (MDRD) Non-Af 88 BUN/Creatinine Ratio 28.2 H Glucose 122 H Lactic Acid < 1.0 Calcium 8.8 Total Bilirubin 0.44 AST 19 ALT 16 Alkaline Phosphatase 70 Total Protein 6.2 Albumin 3.0 L Globulin 3.2 Albumin/Globulin Ratio 0.9 Management Discussion w/another healthcare provider: Hospitalist (Dr Garcias) Discharge Plan Dx/Rx/DC Orders Clinical Impression: Blood bacterial culture positive, Pancytopenia, Non-pressure chronic ulcer of other part of right lower leg with fat layer exposed Disposition Disposition: Acute Care [facility]
[2024-10-13 12:57] LABS: Absolute Neutrophil Count 2.2 X10^3/uL (2.0-7.7); Basophil# 0.04 X10^3/uL; Eosinophils% 2.5 % (0-5); Hematocrit 34.3 % (40-54); Hemoglobin 10.7 g/dL (13.0-16.5); Lymphocyte % 17.7 % (19-41); Mean Corp Hgb Conc 31.2 g/dL (32-36); Mean Corpuscular Hgb 27.1 pg (27.0-32.0); Mean Corpuscular Volume 86.8 fL (80-94); Monocyte# 0.87 X10^3/uL; NRBC Flagged by Analyzer 0 % (0-5); Neutrophil # 2.18 X10^3/uL (2.7-7.7); Neutrophil % 55.3 % (47-70); POSITIVE COUNT YES; Platelet Count 80 K/mm3 (150-450); RBC Distribution Width CV 16.7 % (11.6-14.6); RBC Distribution Width SD 53.5 fl (35.1-43.9); Red Blood Count 3.95 M/mm3 (4.6-6.2)
[2024-10-13 13:11] LABS: International Normalized Ratio 1.3
[2024-10-13 13:12] LABS: Partial Thromboplast Time 33.8 Seconds (24.1-36.2)
[2024-10-13 13:23] LABS: ALB/GLOB Ratio 0.9 RATIO (0.9-2.4); AST(SGOT) 19 U/L (<=37); Alanine Aminotransfer ALT/SGPT 16 U/L (<=46); Alkaline Phosphatase 70 U/L (40-129); Anion Gap 9 (5-15); BUN 26 mg/dL (4-19); BUN/Creat Ratio 28.2 RATIO (10-20); Calcium,Total 8.8 mg/dL (7.6-11.0); Carbon Dioxide 23.3 mmol/L (21.0-32.0); Chloride 107 mmol/L (98-108); Creatinine, Serum 0.93 mg/dL (0.70-1.20); EST Glomerular Filtration Rate 88 (>60); Globulin 3.2 g/dL (2.2-4.2); Glucose 122 mg/dL (70-99); Potassium 4.3 mmol/L (3.3-5.1); Protein, Total 6.2 g/dL (5.9-8.4); Sodium Level 138 mmol/L (133-145); Total Bilirubin 0.44 mg/dL (0.00-1.30)
[2024-10-13 13:29] LABS: Lactic Acid < 1.0 mmol/L (0.0-2.0)
--- NOTE | 2024-10-13 13:46 | HP.PCM.HOS_ITS ---
HPI - General General Date of Admission: 10/13/24 Date of Service: 10/13/24 Chief Complaint: positive blood cultures HPI Narrative SHANELLE HUNTER, is a 69 M with a PMH as outlined who presents via the ED on 10/13/2024 with a complaint of positive blood cultures. He was just admitted on 10/10/2024 for UTI in the setting of indwelling martines catheter. Urine cultures grew Proteus, and he was discharged on Cefpodoxime. However, his blood culture gre MRSA x 2 in one sample from the left wrist so his [place] [facility] was called for patient to be brought back to the ED. He denied any fever, chills, cough, chest pain, palpitations, dizzines, nausea, vomiting or any other symptoms. REview of systems is otherwise negative. Vitals in the ED were BP of 136/71, temp of 98.7F, MN of 57 and RR of 18. He was saturating at 98% on room air. CBC showed Hb of 10.7 and platelets of 80. INR was 1.3, with bicarb of 23 and potassium of 4.3. Cr was 0.93. Repeat blood cultures were done in the ED, and I did ask the ED doctor to give patient a dose of IV vancomycin. He is being admitted to be managed for MRSA bacteremia. [facility] Medical History MRSA (methicillin resistant staph aureus) culture positive Lives in [place] [facility] Wears dentures Depression Anxiety Walker as ambulation aid Ambulates with cane Headache Shortness of breath on exertion Cardiology follow-up encounter History of renal disease Insulin dependent diabetes mellitus Pressure ulcer Abscess Indwelling urethral catheter present Acute painful diabetic polyneuropathy Cancer Former smoker CPAP (continuous positive airway pressure) dependence On home oxygen therapy Pulmonary embolism COPD (chronic obstructive pulmonary disease) Myocardial infarct DVT (deep venous thrombosis) Anemia Ulcer with necrosis of muscle Lymphedema of left lower extremity Lymphedema of right lower extremity Edema of left lower leg Edema of right lower leg Left leg swelling Right leg swelling Chronic venous insufficiency Non-pressure ulcer of right lower extremity with necrosis of muscle BPH (benign prostatic hyperplasia) Atrial fibrillation Blood loss anemia Hypertension Hiatal hernia Diverticulosis Debility Morbid obesity with BMI of 40.0-44.9, adult Impaired mobility SOB (shortness of breath) Heart murmur Heart failure 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 2 diabetes mellitus Aortic valve disease Renal mass, left History of DVT (deep vein thrombosis) Valvular heart disease Atrial fibrillation/flutter Chronic acquired lymphedema Chronic anemia Venous insufficiency (chronic) (peripheral) Ulcer of left lower extremity with fat layer exposed Superficial thrombosis of left lower extremity Peripheral vascular disease of lower extremity with ulceration Sleep apnea Morbid obesity DM2 (diabetes mellitus, type 2) Benign essential HTN Home Medications ?Medication ?Instructions ?Recorded ?Last Taken ?Type aspirin 81 mg tablet,delayed 81 mg PO DAILY AFIB 03/17 Unknown History release amlodipine 5 mg tablet 5 mg PO DAILY AFIB 10/28/23 Unknown History apixaban 5 mg tablet (Eliquis) 5 mg PO BID AFIB Unknown History atorvastatin 20 mg tablet 20 mg PO QHS HYPERLIPIDEMIA 10/28/23 Unknown History melatonin 3 mg tablet 6 mg PO QHS INSOMNIA 4 Unknown History tamsulosin 0.4 mg capsule 0.4 mg PO QHS PROSTATIC HYPE RPLASIA 12/22/23 Unknown History acetaminophen 325 mg tablet 650 mg PO Q4H PRN pain Unknown History (Tylenol) cyanocobalamin (vitamin B-12) 500 mcg PO DAILY 4 Unknown History 1,000 mcg capsule insulin glargine 100 unit/mL (3 23 unit subcut QHS Unknown History mL) subcutaneous pen (Lantus Solostar U-100 Insulin) donepezil 5 mg tablet 5 mg PO QHS MEMORY 08/16/24 Unknown History gabapentin 100 mg capsule 200 mg PO TID NEUROPATHY 12/03 Unknown History insulin lispro 100 unit/mL See Protocol subcut TID 12/03 Unknown History subcutaneous pen (Humalog KwikPen (U-100) Insulin) lurasidone 40 mg tablet 40 mg PO QHS MOOD 08/16/24 U nknown History potassium chloride 10 mEq 10 meq PO BID 08/16/24 Unkno wn History capsule,extended release torsemide 20 mg tablet 20 mg PO BID HEART 08/16/24 Unknown History budesonide-formoterol HFA 160 1 puff inhalation DAILY COPD 09/16/24 Unknown History mcg-4.5 mcg/actuation aerosol inhaler (Symbicort) lactulose 20 gram/30 mL oral 30 ml PO DAILY CONSTIPATI ON 09/16/24 Unknown History solution trazodone 100 mg tablet 100 mg PO QHS insomnia 09/16 Unknown History cefpodoxime 100 mg tablet 100 mg PO BID #20 tabs 10/12 Unknown Rx Allergy/AdvReac Type Severity Reaction Status Date / Time ibuprofen (From Nuprin) Allergy Unknown Verified 10/13/24 11:49 Family History Mother Diabetes Father Cirrhosis of liver Alcoholism Surgical History History of incision and drainage History of embolic filter insertion History of right inguinal hernia repair H/O colectomy History of repair of inguinal hernia History of bladder surgery History of tonsillectomy and adenoidectomy History of right inguinal hernia repair S/P AVR (aortic valve replacement) Social History housing: [facility] Smoking Status: Former smoker how long ago did patient quit smoking: Quit ~ 20 yrs prior, smoked age 15 until quit ~ 2 ppd. alcohol intake: never substance use type: does not use ROS Constitutional Constitutional: Denies anorexia, chills, fatigue, fever(s), malaise or weakness Eyes Eyes: Denies change in vision ENT HEENT: Denies dysphagia Cardiovascular Cardiovascular: Denies chest pain, dyspnea on exertion, edema, lightheadedness, orthopnea, palpitations, paroxysmal nocturnal dyspnea, rapid heart rate or syncope Respiratory/Chest Respiratory/Chest: Denies cough, dyspnea, shortness of breath at rest or shortness of breath with exertion Gastrointestinal Gastrointestinal: Denies abdominal pain, nausea or vomiting Genitourinary Genitourinary: Denies dysuria Musculoskeletal Musculoskeletal: Denies arthralgias Neurologic Neurologic: Denies confusion, dizziness, focal weakness or headache(s) Psychiatric Psychiatric: Denies anxiety or depression Vital Signs Vital Signs Vital Signs: 10/13/24 11:49 10/13/24 11:52 10/13/24 11:52 Temperature 97.9 F 98.7 F Temperature Source Oral Oral Pulse Rate 58 L 60 Respiratory Rate 18 18 Respiratory Effort Normal Respiratory Pattern Normal Blood Pressure 171/69 H 171/78 H Blood Pressure Mean 103 109 Pulse Ox 98 97 Oxygen Delivery Method Room Air Room Air 10/13/24 12:52 10/13/24 13:42 Temperature 98.7 F Temperature Source Oral Pulse Rate 55 L 57 L Respiratory Rate 18 16 Respiratory Effort Respiratory Pattern Blood Pressure 136/71 H Blood Pressure Mean 92 Pulse Ox 98 Oxygen Delivery Method Room Air Weight Weight: 297 lb 6.457 oz Body Mass Index (BMI) 43.9 Physical Exam Const alert, oriented x3 and no apparent distress General Appearance: cooperative HEENT normocephalic, head/scalp atraumatic, hearing grossly normal bilaterally and moist oral mucous membranes Mouth: oral and palatal mucosa normal Eyes PERRL, EOMs intact bilaterally and conjunctivae normal Neck no lymphadenopathy, supple and no JVD Resp normal respiratory effort, no retractions, no use of accessory muscles and clear to auscultation bilaterally Cardio regular rate, regular rhythm, S1 normal heart sound, S2 normal heart sound and no murmurs GI normal to inspection, nondistended, normoactive bowel sounds, soft to palpation, non-tender and non-distended Extremity normal to inspection, full ROM and no clubbing, cyanosis or edema Neuro oriented x3, CN's II-XII intact bilaterally and moves all extremities Sensorium / Orientation: awake and alert Motor Exam: strength 5/5 throughout Psych affect normal Results Lab / Micro Data 10/13/24 12:40 10/13/24 12:40 Labs: Laboratory Results - last 24 hr 10/13/24 12:40: WBC 4.0 L, RBC 3.95 L, Hgb 10.7 L, Hct 34.3 L, MCV 86.8, MCH 27.1, MCHC 31.2 L, RDW Std Deviation 53.5 H, RDW Coeff of Carlito 16.7 H, Plt Count 80 L, Immature Gran % (Auto) 1.500 H, Neut % (Auto) 55.3, Lymph % (Auto) 17.7 L, [place] % (Auto) 22.0 H, Eos % (Auto) 2.5, Baso % (Auto) 1.0, Absolute Neuts (auto) 2.2, Absolute Lymphs (auto) 0.70 L, Nucleated RBC % 0, PT 16.0 H, INR 1.3, APTT 33.8, Sodium 138, Potassium 4.3, Chloride 107, Carbon Dioxide 23.3, Anion Gap 9, BUN 26 H, Creatinine 0.93, Estim Creat Clear Calc 102.20, Est GFR (MDRD) Non-Af 88, BUN/Creatinine Ratio 28.2 H, Glucose 122 H, Lactic Acid < 1.0, Calcium 8.8, Total Bilirubin 0.44, AST 19, ALT 16, Alkaline Phosphatase 70, Total Protein 6.2, Albumin 3.0 L, Globulin 3.2, Albumin/Globulin Ratio 0.9 Assessment & Plan Assessment/Plan (1) Blood bacterial culture positive: PLAN: Plan #MRSA bacteremia * was recently admitted on 10/10/2024 for sepsis due to UTI. Urine cultures grew Proteus, and he was discharged on cepodoxime. * blood cultures however came back positive for MRSA in 1/2 samples, so patient was asked to come back to the ED * start on IV vancomycin. Repeat blood cultures drawn in the ED. * consult ID * get 2D echo * ##Left renal mass * CT as above. This is similar to prior CT of the abdomen and pelvis from 09/16/2024. There is no urology notes documented in the EMR but patient says he is aware of this mass. It is not clear whether he has followed up with urology has had treatment for it. * Since this is not acute, he will benefit from follow-up with urology on outpatient basis. #Hypertension: on amlodipine. Hold torsemide due to VALENTIN. #Hyperlipidemia: on statin #Dementia: on donepezil. #Type 2 diabetes mellitus: on lantus 23 units qhs. ISS. Accuchecks ACHS. #BPH with obstructive symptoms * has chronic indwelling martines catheter as mentioned above * on flomax * DVT prophylaxis: SCDs. NO anticoagulation due to hematuria Code status: DNRCCA with intubation * Documentation from [place] [facility] showed that patient was DNR CCA with intubation. I asked patient this and he also confirmed this. Charges/Coding Visit Charges Inpatient E&M: 16179 Init Hosp L2
[2024-10-13] MEDS: Vancomycin HCl 2,000 MG in 0.9% Normal Saline (500mL Bag) 500 ML 250 MG IV (14:22)
--- NOTE | 2024-10-13 15:13 | ECHOCS_ITS ---
Reason For Study Reason For Study: CAD/ASHD Procedure This was a 2D Doppler, Color Flow transthoracic echocardiogram. The study was technically difficult. Contrast injection was performed. Exam performed portable in patient room. Left Ventricle Normal LV size. The estimated ejection fraction is 70 %. No evidence for diastolic dysfunction. No regional wall motion abnormalities noted. Right Ventricle Normal RV size. Normal systolic function. Atria The left and right atria are normal. No doppler evidence for ASD. Mitral Valve There is no mitral valve stenosis. No mitral valve insufficiency. Tricuspid Valve There is no tricuspid stenosis. Trivial tricuspid valve insufficiency. Unable to estimate RV systolic pressure due to insufficient tricuspid regurgitant envelope. Aortic Valve Velocity across the bioprosthetic aortic valve appears to be increased suggestive of stenosis. Trivial aortic valve insufficiency. Bioprosthetic aortic valve. Pulmonic Valve There is no pulmonic valvular stenosis. No pulmonic valve insufficiency. Great Vessels Normal sized aortic root. Pericardium/Pleural No pericardial effusion. Medication Diluted definity 2ml given slow IV push to enhance endocardial definition. MMode/2D Measurements & Calculations LVIDd: 5.5 cm IVSd: 1.3 cm LVOT diam: 2.0 cm LVIDs: 3.5 cm LVPWd: 1.6 cm FS: 37.4 % LVOT area: 3.2 cm2 LAV(MOD-bp): 70.9 ml LVAd ap4: 50.2 cm2 SV(MOD-sp4): 126.6 ml LAV(MOD-bp) Indexed: 29.0 ml/m2 LVLd ap4: 10.5 cm SI(MOD-sp4): 51.8 ml/m2 LAV(MOD-sp2): 71.6 ml EDV(MOD-sp4): 201.9 ml LAV(MOD-sp4): 67.4 ml EDV(sp4-el): 204.5 ml LVAs ap4: 29.0 cm2 LVLs ap4: 9.0 cm ESV(MOD-sp4): 75.3 ml ESV(sp4-el): 79.1 ml EF(MOD-sp4): 62.7 % EF(sp4-el): 61.3 % SV(sp4-el): 125.4 ml LA A4 area: 20.5 cm2 RA A4 area: 13.6 cm2 Time Measurements MV dec time: 0.24 sec Doppler Measurements & Calculations MV E max braxton: 107.4 cm/sec Lat Peak E' Braxton: 17.0 cm/sec Med Peak E' Braxton: 10.0 cm/sec MV A max braxton: 100.5 cm/sec E/E' lat: 6.3 E/E' med: 10.7 MV E/A: 1.1 MV V2 max: 104.6 cm/sec Ao V2 max: 454.0 cm/sec MV max P.4 mmHg MV dec slope: 441.6 cm/sec2 Ao max P.5 mmHg MV V2 mean: 64.2 cm/sec Ao V2 mean: 309.6 cm/sec MV mean P.9 mmHg Ao mean P.8 mmHg MV V2 VTI: 39.2 cm Ao V2 VTI: 104.7 cm PA V2 max: 125.2 cm/sec PA V2 mean: 80.6 cm/sec ECHO/Echo Complete W/ Contrast Interpretation Summary The estimated ejection fraction is 70 %. No evidence for diastolic dysfunction. Velocity across the bioprosthetic aortic valve appears to be increased suggesti ve of stenosis. Trivial aortic valve insufficiency. Ordering Physician: Monika Garcias Referring Physician: SAUL BUTLER Performed By: Maite Smith RCS
--- NOTE | 2024-10-13 15:42 | PCM.RX.CS ---
Consult Antibiotic Management Pharmacy has been consulted to manage selected antibiotic: Vancomycin Type of Intervention Type of Consult: Suspected Infection Suspected Infection: Bacteremia Labs Labs: Sodium 138 mmol/L (133-145) 10/13/24 12:40 Potassium 4.3 mmol/L (3.3-5.1) 10/13/24 12:40 Chloride 107 mmol/L (98-108) 10/13/24 12:40 Carbon Dioxide 23.3 mmol/L (21.0-32.0) 10/13/24 12:40 Anion Gap 9 (5-15) 10/13/24 12:40 BUN 26 mg/dL (4-19) H 10/13/24 12:40 Creatinine 0.93 mg/dL (0.70-1.20) 10/13/24 12:40 Est GFR (MDRD) Non-Af 88 (>60) 10/13/24 12:40 BUN/Creatinine Ratio 28.2 RATIO (10-20) H 10/13/24 12:40 Glucose 122 mg/dL (70-99) H 10/13/24 12:40 Goal Trough Goal Trough: 15-20 mcg/mL Pharmacy Plan for Drug Dosing Pharmacy Plan for Drug Dosing: IV VANCOMYCIN Consulting Physician: Dr. Garcias Indication: MRSA (+) bacteremia Goal Trough: 15-20 SrCr: 0.93 CrCl: 102 mL/min Comments: Patient had loading dose of 2000mg IV x1 in ED 10/13/24 @1422 Vancomycin Dose: 1500mg IV Q8h to start 10/13/24 @2200 Pending Level: 10/14/24 @1330, prior to 4th total dose per protocol Pharmacy Service will continue to monitor and adjust dosing as required.
[2024-10-13] MEDS: oxyCODONE 5 MG Tablet PO (18:52)
--- NOTE | 2024-10-13 19:06 | CM.ED ---
Social Work SW met with patient, patient stated he was upset that he was in the hospital again. SW attempted to engage patient, however patient would often look at social services counselor and not speak or answer in one word responses. Patient did tell social services counselor that he was depressed but would not elaborate on feelings. SW asked patient if he ever saw a counselor or psychiatrist at the [facility], patient denied. SW placed a call to social services counselor at [facility] and requested a call back. Bethany Ortiz, SECURITY TESTER, [employer]
[2024-10-13] MEDS: APIXABAN 5 MG TABLET PO (21:14)
[2024-10-13] MEDS: Menthol/Lanolin/Calamine/Znox 113 GM Tube 1 APPLIC TOPICAL (21:14)
[2024-10-13] MEDS: LURASIDONE HCL 40 MG TABLET PO (21:15)
[2024-10-13] MEDS: MELATONIN 3 MG TABLET 6 MG PO (21:15)
[2024-10-13] MEDS: Atorvastatin Calcium 20 MG Tablet PO (21:15)
[2024-10-13] MEDS: Donepezil HCl 5 MG Tablet PO (21:15)
[2024-10-13] MEDS: Insulin Glargine-YFGN 100 UNIT/ML Pen 23 UNIT SC (21:15)
[2024-10-13] MEDS: traZODone 100 MG Tablet PO (21:16)
[2024-10-13] MEDS: Tamsulosin HCl 0.4 MG Capsule PO (21:16)
[2024-10-13] MEDS: NYSTATIN 500,000 UNIT/5 ML UDC 500000 UNIT PO (21:16)
[2024-10-13] MEDS: Furosemide 40 MG Tablet PO (21:16)
[2024-10-13] MEDS: 0.9% Saline Lock 10 ML Syringe IV (21:19)
[2024-10-13] MEDS: 0.9% Normal Saline (100mL Bag) 100 ML 15 ML IV (21:19)
[2024-10-13] MEDS: Vancomycin HCl 1,500 MG in 0.9% Normal Saline (500mL Bag) 500 ML 250 MG IV (21:19)
[2024-10-13] MEDS: Gabapentin 100 MG Capsule 200 MG PO (21:19)
[2024-10-13 22:08] LABS: Bedside Glucose 114 mg/dL (74-106)
[2024-10-14 03:15] VITALS: BP 139/74; PULSE 63; RESP 16; TEMP 37.1; O2SAT 94
[2024-10-14] MEDS: Vancomycin HCl 1,500 MG in 0.9% Normal Saline (500mL Bag) 500 ML 250 MG IV (05:12)
[2024-10-14] MEDS: Gabapentin 100 MG Capsule 200 MG PO ×3 (05:13→22:30)
[2024-10-14 06:37] LABS: Bedside Glucose 93 mg/dL (74-106)
[2024-10-14 06:37] LABS: Anion Gap 10 (5-15); BUN 21 mg/dL (4-19); BUN/Creat Ratio 22.5 RATIO (10-20); Calcium,Total 8.3 mg/dL (7.6-11.0); Carbon Dioxide 21.8 mmol/L (21.0-32.0); Chloride 108 mmol/L (98-108); Creatinine, Serum 0.92 mg/dL (0.70-1.20); EST Glomerular Filtration Rate 90 (>60); Estimated Creatinine Clearance 101.83 ml/min (50-250); Glucose 96 mg/dL (70-99); Potassium 3.8 mmol/L (3.3-5.1); Sodium Level 139 mmol/L (133-145)
[2024-10-14 07:08] LABS: Mean Corpuscular Hgb 27.4 pg (27.0-32.0); NRBC Flagged by Analyzer 0.6 % (0-5); POSITIVE COUNT YES; POSITIVE DIFFERENTIAL YES; POSITIVE MORPHOLOGY YES
[2024-10-14 07:22] LABS: Differential Indicated SCAN CRITERIA MET
--- NOTE | 2024-10-14 07:38 | PN.HOSP_ITS ---
Reason for Visit Reason for Visit: Diagnoses Bacteremia (10/13/24) Objective Data Objective Data Vital Signs: Vital Signs Temp Pulse Resp BP Pulse Ox O2 Del Method 98.8 F 63 16 139/74 H 94 Room Air 10/14/24 03:15 10/14/24 03:15 10/14/24 03:15 10/14/24 03:15 10/14/24 03:15 10/14/24 03:15 Oxygen Delivery Method Room Air Weight: 297 lb 6.457 oz Body Mass Index (BMI) 44.0 Intake & Output: Intake and Output for Last 24 Hours 10/12/24 10/13/24 10/14/24 23:59 23:59 23:59 Intake Total 1072.25 / 1072.25 530 / 530 Output Total 850 / 2050 1999 Balance 222.25 / -977.75 -1470 / -1470 Lab / Micro Data 10/14/24 04:57 10/14/24 04:57 Labs: Laboratory Results - last 24 hr 10/13/24 12:40: WBC 4.0 L, RBC 3.95 L, Hgb 10.7 L, Hct 34.3 L, MCV 86.8, MCH 27.1, MCHC 31.2 L, RDW Std Deviation 53.5 H, RDW Coeff of Carlito 16.7 H, Plt Count 80 L, Immature Gran % (Auto) 1.500 H, Neut % (Auto) 55.3, Lymph % (Auto) 17.7 L, [place] % (Auto) 22.0 H, Eos % (Auto) 2.5, Baso % (Auto) 1.0, Absolute Neuts (auto) 2.2, Absolute Lymphs (auto) 0.70 L, Nucleated RBC % 0, PT 16.0 H, INR 1.3, APTT 33.8, Sodium 138, Potassium 4.3, Chloride 107, Carbon Dioxide 23.3, Anion Gap 9, BUN 26 H, Creatinine 0.93, Estim Creat Clear Calc 102.20, Est GFR (MDRD) Non-Af 88, BUN/Creatinine Ratio 28.2 H, Glucose 122 H, Lactic Acid < 1.0, Calcium 8.8, Total Bilirubin 0.44, AST 19, ALT 16, Alkaline Phosphatase 70, Total Protein 6.2, Albumin 3.0 L, Globulin 3.2, Albumin/Globulin Ratio 0.9 10/13/24 21:12: POC Glucose 114 H 10/14/24 04:57: WBC 3.5 L, RBC 7.19 H, Hgb 19.7 H*, Hct 61.6 H, MCV 85.7, MCH 27.4, MCHC 32.0, RDW Std Deviation 52.6 H, RDW Coeff of Carlito 18.2 H, Plt Count 37 L*, MPV TNP, Immature Gran % (Auto) 1.700 H, Neut % (Auto) 61.9, Lymph % (Auto) 15.6 L, [place] % (Auto) 15.1 H, Eos % (Auto) 4.3, Baso % (Auto) 1.4 H, Absolute Neuts (auto) 2.2, Absolute Lymphs (auto) 0.55 L, Nucleated RBC % 0.6, Sodium 139, Potassium 3.8, Chloride 108, Carbon Dioxide 21.8, Anion Gap 10, BUN 21 H, Creatinine 0.92, Estim Creat Clear Calc 101.83, Est GFR (MDRD) Non-Af 90, BUN/Creatinine Ratio 22.5 H, Glucose 96, Calcium 8.3 10/14/24 06:19: POC Glucose 93 Physical Exam Narrative Seen and examined. Patient not forthcoming with the history of her prior heart to ask questions. Has chronic ulcer over right lateral leg follows wound center. Dressing removed and shows avalos yellow sticky stain on the dressing. No fever. Chronic sacral/bilateral buttock pain. No back surgery. Also complaining of mild right lower abdominal pain Physical exam General: Alert, Oriented x3, Cooperative. Morbid obesity BMI 44.0 kg/m? HEENT: Atraumatic, PERRLA, EOMI, Normocephalic Oral: Deep pharyngeal structures could not be visualized. Neck: Supple, No JVD, Negative Carotid Bruits Chest wall/Lungs: Air entry diminished in bilateral lung bases. No crepitation/rhonchi Cardiovascular: Regular rate, Regular Rhythm, Normal S1, Normal S2, No M/G/R Abdomen: Bowel Sounds Present, Soft, mild tenderness in right lateral quadrant, Non-Distended : No dysuria. No renal angle tenderness. No suprapubic tenderness. Extremities: No edema, Capillary Refill Less than 3 Seconds Skin: No rashes, No breakdown Musculoskeletal: No Tenderness to Palpation of Joints or Extremities Neurological: Cranial nerves II-XII grossly intact, DTR 2+/4. No acute focal neurological deficit. Psych/Mental Status: Normal Affect, Appropriate. Assessment & Plan Assessment/Plan (1) Blood bacterial culture positive: PLAN: Plan 69-year-old man was discharged yesterday and found to have MRSA in the blood #MRSA bacteremia probably source of right lateral leg * was recently admitted on 10/10/2024 for sepsis due to UTI. Urine cultures grew Proteus, and he was discharged on cepodoxime. * blood cultures however came back positive for MRSA in 1/2 samples, so patient was asked to come back to the ED * start on IV vancomycin. Repeat blood cultures drawn in the ED. * consult ID. Echo is done but not report * Take Away Man consulted for right lateral leg which I believe may be the source for MRSA bacteremia ##Left renal mass * CT as above. This is similar to prior CT of the abdomen and pelvis from 09/16/2024. There is no urology notes documented in the EMR but patient says he is aware of this mass. It is not clear whether he has followed up with urology has had treatment for it. * Since this is not acute, he will benefit from follow-up with urology on outpatient basis. #Hypertension: on amlodipine. Hold torsemide due to VALENTIN. #Hyperlipidemia: on statin #Dementia: on donepezil. #Type 2 diabetes mellitus: on lantus 23 units qhs. ISS. Accuchecks ACHS. #BPH with obstructive symptoms * has chronic indwelling martines catheter as mentioned above * on flomax * DVT prophylaxis: SCDs. NO anticoagulation due to hematuria Code status: DNRCCA with intubation * Documentation from senior living showed that patient was DNR CCA with intubation. Patient confirmed DNR CC and with intubation Charges/Coding Visit Charges Inpatient E&M: 03026 Subs Hosp L2
[2024-10-14 07:58] VITALS: BP 140/69; PULSE 64; RESP 14; TEMP 36.8; O2SAT 95
[2024-10-14] MEDS: APIXABAN 5 MG TABLET PO (08:08)
[2024-10-14] MEDS: Cyanocobalamin 500 MCG Tablet PO (08:08)
[2024-10-14] MEDS: Furosemide 40 MG Tablet PO ×2 (08:08→22:30)
[2024-10-14] MEDS: amLODIPine 5 MG Tablet PO (08:08)
[2024-10-14] MEDS: Aspirin E.C. 81 MG Tablet PO (08:08)
[2024-10-14] MEDS: Potassium Chloride Oral Tablet 10 MEQ PO ×2 (08:08→17:08)
[2024-10-14] MEDS: NYSTATIN 500,000 UNIT/5 ML UDC 500000 UNIT PO (08:09)
[2024-10-14] MEDS: Menthol/Lanolin/Calamine/Znox 113 GM Tube 1 APPLIC TOPICAL ×2 (08:09→22:30)
[2024-10-14] MEDS: Lactulose 20 GM/30 ML UDC PO (08:09)
[2024-10-14 09:20] LABS: Hematocrit 29.8 % (40-54); Hemoglobin 9.5 g/dL (13.0-16.5); Red Blood Count 3.45 M/mm3 (4.6-6.2)
[2024-10-14 09:21] LABS: Mean Corp Hgb Conc 27.5 g/dL (32-36); Mean Corpuscular Volume 86.4 fL (80-94); RBC Distribution Width CV 16.5 % (11.6-14.6)
[2024-10-14 09:22] LABS: Platelet Count 114 K/mm3 (150-450); RBC Distribution Width SD 52.2 fl (35.1-43.9)
[2024-10-14 09:26] LABS: Eosinophils% 2.7 % (0-5); Lymphocyte % 17.7 % (19-41); Monocyte% 20.7 % (0-10); Neutrophil # 2.21 X10^3/uL (2.7-7.7); Neutrophil % 55.2 % (47-70)
[2024-10-14 09:27] LABS: Absolute Lymphocyte Count 0.71 X10^3/uL (0.83-4.51); Absolute Neutrophil Count 2.2 X10^3/uL (2.0-7.7); Basophil# 0.04 X10^3/uL; Eosinophil# 0.11 X10^3/uL; Lymphocyte # 0.71 X10^3/ul (0.83-4.51); Monocyte# 0.83 X10^3/uL
[2024-10-14 12:03] LABS: Bedside Glucose 126 mg/dL (74-106)
[2024-10-14] MEDS: Glucerna Shake 120 ML LIQUID PO ×2 (12:23→17:08)
[2024-10-14 12:27] LABS: Platelet Estimate SLT (ADEQ); Platelet Morphology LARGE
--- NOTE | 2024-10-14 12:40 | CASEMGMT ---
RADHA sent PT/OT evals to [facility]. Concepcion Delong [employer] DRIVER TUTU
[2024-10-14 13:00] VITALS: BP 119/59; PULSE 60; RESP 16; TEMP 36.4; O2SAT 96
[2024-10-14] MEDS: Vancomycin Trough/Random Due 1 LAB MC (13:49)
[2024-10-14 14:28] LABS: Vancomycin, Trough Level 22.3 ug/mL (5.0-15.0)
--- NOTE | 2024-10-14 14:38 | PCM.RX.CS ---
Consult Antibiotic Management Pharmacy has been consulted to manage selected antibiotic: Vancomycin Type of Intervention Type of Consult: Follow-up Suspected Infection Suspected Infection: Bacteremia Prior Doses of Antibiotics Prior Doses of Antibiotics Received/Current Regimen: current dose is vanc 1500mg IV q8h Labs Labs: Sodium 139 mmol/L (133-145) 10/14/24 04:57 Potassium 3.8 mmol/L (3.3-5.1) 10/14/24 04:57 Chloride 108 mmol/L (98-108) 10/14/24 04:57 Carbon Dioxide 21.8 mmol/L (21.0-32.0) 10/14/24 04:57 Anion Gap 10 (5-15) 10/14/24 04:57 BUN 21 mg/dL (4-19) H 10/14/24 04:57 Creatinine 0.92 mg/dL (0.70-1.20) 10/14/24 04:57 Est GFR (MDRD) Non-Af 90 (>60) 10/14/24 04:57 BUN/Creatinine Ratio 22.5 RATIO (10-20) H 10/14/24 04:57 Glucose 96 mg/dL (70-99) 10/14/24 04:57 Vancomycin Trough 22.3 ug/mL (5.0-15.0) H 10/14/24 13:35 Dosing Weight Weight used for dosin.9 kg Estimated Creatinine Clearance Estimated Creatinine Clearance: 102 ml/min Goal Trough Goal Trough: 15-20 mcg/mL Pharmacy Plan for Drug Dosing Pharmacy Plan for Drug Dosing: The vanc trough drawn at 13:35 (approx 8.5 hours after the previous dose) was 22.3mcg/ml. This is above goal range so will hold current dose. Will check a random in 8 hours to see if dosing can be resumed at that time. Pharmacy Service will continue to monitor and adjust dosing as required. Follow-Up Labs Follow-Up Labs: Trough: Vancomycin (random) Date/Time Labs Ordered Labs to be done on [date and time ordered]: 10/14/24 22:00
[2024-10-14 18:15] VITALS: BP 140/62; PULSE 61; RESP 16; TEMP 36.7; O2SAT 96
[2024-10-14 22:24] VITALS: BP 134/71; PULSE 57; RESP 18; TEMP 36.6; O2SAT 97
[2024-10-14] MEDS: Insulin Glargine-YFGN 100 UNIT/ML Pen 18 UNIT SC (22:28)
[2024-10-14] MEDS: traZODone 100 MG Tablet PO (22:29)
[2024-10-14] MEDS: LURASIDONE HCL 40 MG TABLET PO (22:29)
[2024-10-14] MEDS: MELATONIN 3 MG TABLET 6 MG PO (22:29)
[2024-10-14] MEDS: Tamsulosin HCl 0.4 MG Capsule PO (22:30)
[2024-10-14] MEDS: Acetaminophen 325 MG Tablet 650 MG PO (22:30)
[2024-10-14] MEDS: oxyCODONE 5 MG Tablet PO (22:30)
[2024-10-14] MEDS: Donepezil HCl 5 MG Tablet PO (22:30)
[2024-10-14] MEDS: Atorvastatin Calcium 20 MG Tablet PO (22:31)
[2024-10-14 22:34] LABS: Vancomycin, Random Level 15.9 ug/mL (0.0-15.0)
[2024-10-14 23:04] LABS: Bedside Glucose 150 mg/dL (74-106)
[2024-10-15] MEDS: Vancomycin HCl 1,250 MG in 0.9% Normal Saline (250mL Bag) 250 ML 167 MG IV ×3 (00:08→16:00)
--- NOTE | 2024-10-15 02:11 | PCM.RX.CS ---
Consult Antibiotic Management Pharmacy has been consulted to manage selected antibiotic: Vancomycin Type of Intervention Type of Consult: Follow-up Labs Labs: Sodium 139 mmol/L (133-145) 10/14/24 04:57 Potassium 3.8 mmol/L (3.3-5.1) 10/14/24 04:57 Chloride 108 mmol/L (98-108) 10/14/24 04:57 Carbon Dioxide 21.8 mmol/L (21.0-32.0) 10/14/24 04:57 Anion Gap 10 (5-15) 10/14/24 04:57 BUN 21 mg/dL (4-19) H 10/14/24 04:57 Creatinine 0.92 mg/dL (0.70-1.20) 10/14/24 04:57 Est GFR (MDRD) Non-Af 90 (>60) 10/14/24 04:57 BUN/Creatinine Ratio 22.5 RATIO (10-20) H 10/14/24 04:57 Glucose 96 mg/dL (70-99) 10/14/24 04:57 Vancomycin Trough 22.3 ug/mL (5.0-15.0) H 10/14/24 13:35 Random Vancomycin 15.9 ug/mL (0.0-15.0) H 10/14/24 21:49 Goal Trough Goal Trough: 15-20 mcg/mL Pharmacy Plan for Drug Dosing Pharmacy Plan for Drug Dosing: Pharmacy Service will continue to monitor and adjust dosing as required. RANDOM LEVEL 15.9 @ 16.5 HOURS. DECREASE TO 1250MG Q8H AND DRAW TROUGH PRIOR TO 4TH DOSE Follow-Up Labs Follow-Up Labs: Trough: Vancomycin Date/Time Labs Ordered Labs to be done on [date and time ordered]: 10/15 @ 2300
[2024-10-15 05:59] VITALS: BP 134/72; PULSE 58; RESP 18; TEMP 36.6; O2SAT 98
[2024-10-15] MEDS: Gabapentin 100 MG Capsule 200 MG PO ×3 (06:00→21:24)
[2024-10-15 06:22] LABS: Bedside Glucose 113 mg/dL (74-106)
[2024-10-15 07:27] LABS: Absolute Lymphocyte Count 0.94 X10^3/uL (0.83-4.51); Absolute Neutrophil Count 1.9 X10^3/uL (2.0-7.7); Basophil# 0.02 X10^3/uL; Basophil% 0.5 % (0-1); Eosinophil# 0.15 X10^3/uL; Hematocrit 31.7 % (40-54); Hemoglobin 10.1 g/dL (13.0-16.5); Lymphocyte # 0.94 X10^3/ul (0.83-4.51); Lymphocyte % 25.3 % (19-41); Mean Corp Hgb Conc 31.9 g/dL (32-36); Mean Corpuscular Hgb 27.6 pg (27.0-32.0); Mean Corpuscular Volume 86.6 fL (80-94); Mean Platelet Vol. 12.3 fl (6.2-12.0); Monocyte# 0.56 X10^3/uL; Monocyte% 15.1 % (0-10); NRBC Flagged by Analyzer 0.5 % (0-5); Neutrophil % 51.1 % (47-70); POSITIVE MORPHOLOGY YES; Platelet Count 135 K/mm3 (150-450); RBC Distribution Width CV 16.3 % (11.6-14.6); RBC Distribution Width SD 51.3 fl (35.1-43.9); Red Blood Count 3.66 M/mm3 (4.6-6.2); White Blood Count 3.7 K/mm3 (4.4-11.0)
[2024-10-15 07:32] LABS: Differential Indicated SCAN CRITERIA MET
[2024-10-15 08:07] LABS: Anion Gap 8 (5-15); BUN 19 mg/dL (4-19); BUN/Creat Ratio 19.7 RATIO (10-20); Calcium,Total 8.3 mg/dL (7.6-11.0); Chloride 107 mmol/L (98-108); Creatinine, Serum 0.94 mg/dL (0.70-1.20); EST Glomerular Filtration Rate 87 (>60); Estimated Creatinine Clearance 99.66 ml/min (50-250); Glucose 106 mg/dL (70-99); Potassium 3.9 mmol/L (3.3-5.1); Sodium Level 140 mmol/L (133-145)
--- NOTE | 2024-10-15 09:02 | PN.HOSP_ITS ---
Reason for Visit Reason for Visit: Diagnoses Bacteremia (10/13/24) Objective Data Objective Data Vital Signs: Vital Signs Temp Pulse Resp BP Pulse Ox O2 Del Method 97.8 F 58 L 18 134/72 H 98 Room Air 10/15/24 05:59 10/15/24 05:59 10/15/24 05:59 10/15/24 05:59 10/15/24 05:59 10/15/24 06:00 Oxygen Delivery Method Room Air Weight: 297 lb 6.457 oz Body Mass Index (BMI) 44.0 Intake & Output: Intake and Output for Last 24 Hours 10/13/24 10/14/24 10/15/24 23:59 23:59 23:59 Intake Total 1072.25 / 1072.25 770 / 770 275 / 275 Output Total 850 / 2050 3750 / 3750 1400 / 1400 Balance 222.25 / -977.75 -2980 / -2980 -1125 / -1125 Lab / Micro Data 10/15/24 06:13 10/15/24 06:13 Labs: Laboratory Results - last 24 hr 10/14/24 04:57: WBC 4.0 L, RBC 3.45 L, Hgb 9.5 L, Hct 29.8 L, MCV 86.4, MCHC 27.5 L D, RDW Std Deviation 52.2 H, RDW Coeff of Carlito 16.5 H, Plt Count 114 L, I mmature Gran % (Auto) 2.700 H, Neut % (Auto) 55.2, Lymph % (Auto) 17.7 L, [place] % (Auto) 20.7 H, Eos % (Auto) 2.7, Baso % (Auto) 1.0, Absolute Neuts (auto) 2.2, A bsolute Lymphs (auto) 0.71 L, Platelet Estimate SLT, Plt Morphology Comment LARGE 10/14/24 11:33: POC Glucose 126 H 10/14/24 13:35: Vancomycin Trough 22.3 H 10/14/24 21:49: Random Vancomycin 15.9 H 10/14/24 22:26: POC Glucose 150 H 10/15/24 06:02: POC Glucose 113 H 10/15/24 06:13: WBC 3.7 L, RBC 3.66 L, Hgb 10.1 L, Hct 31.7 L, MCV 86.6, MCH 27.6, MCHC 31.9 L D, RDW Std Deviation 51.3 H, RDW Coeff of Carlito 16.3 H, Plt Count 135 L, MPV 12.3 H, Immature Gran % (Auto) 4.000 H, Neut % (Auto) 51.1, Lymph % (Auto) 25.3, [place] % (Auto) 15.1 H, Eos % (Auto) 4.0, Baso % (Auto) 0.5, Absolute Neuts (auto) 1.9 L, Absolute Lymphs (auto) 0.94, Nucleated RBC % 0.5, Sodium 140, Potassium 3.9, Chloride 107, Carbon Dioxide 25.0, Anion Gap 8, BUN 19, Creatinine 0.94, Estim Creat Clear Calc 99.66, Est GFR (MDRD) Non-Af 87, BUN/Creatinine Ratio 19.7, Glucose 106 H, Calcium 8.3 Radiography Diagnostic Testing: Radiology Impression Echocardiogram 10/13/24 15:13 Interpretation Summary The estimated ejection fraction is 70 %. No evidence for diastolic dysfunction. Velocity across the bioprosthetic aortic valve appears to be increased suggestive of stenosis. Trivial aortic valve insufficiency. Ordering Physician: Monika Garcias Referring Physician: SAUL BUTLER Performed By: Maite Smith RCS Physical Exam Narrative Seen and examined. Patient not forthcoming with the history of her prior heart to ask questions. Has chronic ulcer over right lateral leg follows wound center. Dressing removed and shows avalos yellow sticky stain on the dressing. No fever. Chronic sacral/bilateral buttock pain. No back surgery. Also complaining of mild right lower abdominal pain Physical exam General: Alert, Oriented x3, Cooperative. Morbid obesity BMI 44.0 kg/m? HEENT: Atraumatic, PERRLA, EOMI, Normocephalic Oral: Deep pharyngeal structures could not be visualized. Neck: Supple, No JVD, Negative Carotid Bruits Chest wall/Lungs: Air entry diminished in bilateral lung bases. No crepitation/rhonchi Cardiovascular: Regular rate, Regular Rhythm, Normal S1, Normal S2, systolic ejection murmur right second ICS Abdomen: Bowel Sounds Present, Soft, mild tenderness in right lateral quadrant, Non-Distended : No dysuria. No renal angle tenderness. No suprapubic tenderness. Extremities: No edema, Capillary Refill Less than 3 Seconds Skin: No rashes, No breakdown Musculoskeletal: No Tenderness to Palpation of Joints or Extremities Neurological: Cranial nerves II-XII grossly intact, DTR 2+/4. No acute focal neurological deficit. Psych/Mental Status: Normal Affect, Appropriate. Assessment & Plan Assessment/Plan (1) Blood bacterial culture positive: PLAN: Plan 69-year-old man was discharged yesterday and found to have MRSA in the blood #MRSA bacteremia probably source of right lateral leg * was recently admitted on 10/10/2024 for sepsis due to UTI. Urine cultures grew Proteus, and he was discharged on cepodoxime. * blood cultures however came back positive for MRSA in 1/2 samples, so patient was asked to come back to the ED * start on IV vancomycin. Repeat blood cultures drawn in the ED. * consult ID. Echo is done but not report * Market Research Analyst consulted for right lateral leg which I believe may be the source for MRSA bacteremia 10/15: Discussed with the shipfitter apprentice. Echo does not show any vegetation. EF 70%. 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 Continue IV antibiotic. Discussed with web merchant Dr. Montoya and wounds shows granulation tissue with some nonviable tissue of right lower leg ulcer which was debrided. ID consult tomorrow. ##Left renal mass * CT as above. This is similar to prior CT of the abdomen and pelvis from 09/16/2024. There is no urology notes documented in the EMR but patient says he is aware of this mass. It is not clear whether he has followed up with urology has had treatment for it. * Since this is not acute, he will benefit from follow-up with urology on outpatient basis. 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 On auscultation murmur is audible. No acute cardiac symptoms. #Hypertension: on amlodipine. Hold torsemide due to VALENTIN. #Hyperlipidemia: on statin #Dementia: on donepezil. #Type 2 diabetes mellitus: on lantus 23 units qhs. ISS. Accuchecks ACHS. #BPH with obstructive symptoms * has chronic indwelling martines catheter as mentioned above * on flomax * DVT prophylaxis: SCDs. NO anticoagulation due to hematuria Code status: DNRCCA with intubation * [facility]ation from [facility] showed that patient was DNR CCA with intubation. Patient confirmed DNR CC and with intubation Echocardiogram 10/13/24 15:13 Interpretation Summary The estimated ejection fraction is 70 %. No evidence for diastolic dysfunction. Velocity across the bioprosthetic aortic valve appears to be increased suggestive of stenosis. Trivial aortic valve insufficiency. Charges/Coding Visit Charges Inpatient E&M: 55033 Subs Hosp L2
[2024-10-15 09:06] LABS: Platelet Estimate SLT DEC (ADEQ); Polychromasia 1+
[2024-10-15] MEDS: Potassium Chloride Oral Tablet 10 MEQ PO ×2 (09:29→17:38)
--- NOTE | 2024-10-15 09:36 | PCM.CONS.GEN ---
Assessment & Plan Assessment/Plan (1) Blood bacterial culture positive: PLAN: Exam performed. Vital signs stable Right lower extremity ulceration wound culture pending Repeat blood cultures pending Right lateral leg ulceration is stable does not appear acutely infected; however, it always a possibility that is pleural we will wait and culture. Consideration should be made for additional sources of potential bacteremia or consideration of possible contamination at time of taking blood cultures is only 1 of 2 positive. Will await repeat blood cultures. Arterial studies ordered Venous studies ordered to rule out DVT as patient has diffuse swelling to left lower extremity. Patient etiologies venous insufficiency and is noted to be sitting up in bed which will increase dependent edema to bilateral lower extremities, recommend exercise elevation and compression for edema management Right lateral leg wound was excisionally debrided down to and including level of subcutaneous tissue of all nonviable tissue using a #15 blade without incident. Topical anesthesia used. Hemostasis obtained with light compression. Patient tolerated procedure well. Pre and postdebridement measurements documented in the objective section of the note. Wound was dressed with Betadine sterile gauze Kerlix and Celso bandage to right lower extremity. Will plan for daily dressing changes consisting of silver alginate dry sterile dressing with Celso bandages to bilateral lower extremity. Will reevaluate patient 10/16/2024 (2) Cellulitis of right lower limb: (3) Non-pressure chronic ulcer of 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: HPI Consult Data Date of Consult: 10/15/24 HPI Narrative HPI Narrative: SHANELLE HUNTER, is a 69 M who presents with chronic ulceration to right lateral ankle. Patient was noted to have some worsening systemic signs of infection blood cultures were taken and positive for MRSA. Patient has chronic nonhealing ulceration to the right lateral leg which appears stable but could be source of bacteremia. Patient denies any fever chills nausea vomiting chest pain calf pain shortness of breath at this time. Patient has no acute pain right lower extremity. He does have diffuse lower extremity edema bilaterally. [facility] Medical History MRSA (methicillin resistant staph aureus) culture positive Lives in [facility] Wears dentures Depression Anxiety Walker as ambulation aid Ambulates with cane Headache Shortness of breath on exertion Cardiology follow-up encounter History of renal disease Insulin dependent diabetes mellitus Pressure ulcer Abscess Indwelling urethral catheter present Acute painful diabetic polyneuropathy Cancer Former smoker CPAP (continuous positive airway pressure) dependence On home oxygen therapy Pulmonary embolism COPD (chronic obstructive pulmonary disease) Myocardial infarct DVT (deep venous thrombosis) Anemia Ulcer with necrosis of muscle Lymphedema of left lower extremity Lymphedema of right lower extremity Edema of left lower leg Edema of right lower leg Left leg swelling Right leg swelling Chronic venous insufficiency Non-pressure ulcer of right lower extremity with necrosis of muscle BPH (benign prostatic hyperplasia) Atrial fibrillation Blood loss anemia Hypertension Hiatal hernia Diverticulosis Debility Morbid obesity with BMI of 40.0-44.9, adult Impaired mobility SOB (shortness of breath) Heart murmur Heart failure 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 2 diabetes mellitus Aortic valve disease Renal mass, left History of DVT (deep vein thrombosis) Valvular heart disease Atrial fibrillation/flutter Chronic acquired lymphedema Chronic anemia Venous insufficiency (chronic) (peripheral) Ulcer of left lower extremity with fat layer exposed Superficial thrombosis of left lower extremity Peripheral vascular disease of lower extremity with ulceration Sleep apnea Morbid obesity DM2 (diabetes mellitus, type 2) Benign essential HTN Home Medications ?Medication ?Instructions ?Recorded ?Last Taken ?Type aspirin 81 mg tablet,delayed 81 mg PO DAILY AFIB 03/17/19 Unknown History release amlodipine 5 mg tablet 5 mg PO DAILY AFIB 10/28/23 Unknown History apixaban 5 mg tablet (Eliquis) 5 mg PO BID AFIB 10/28/23 Unknown History atorvastatin 20 mg tablet 20 mg PO QHS HYPERLIPIDEMIA 10/28/23 10/13/24 History melatonin 3 mg tablet 6 mg PO QHS INSOMNIA 10/28/23 Unknown History tamsulosin 0.4 mg capsule 0.4 mg PO QHS PROSTATIC HYPERPLASIA 12/22/23 Unknown History acetaminophen 325 mg tablet 650 mg PO Q4H PRN pain 06/01/24 Unknown History (Tylenol) cyanocobalamin (vitamin B-12) 500 mcg PO DAILY VITAMIN 06/01/24 Unknown History 1,000 mcg capsule insulin glargine 100 unit/mL (3 23 unit subcut QHS DIABETIC 06/01/24 Unknown History mL) subcutaneous pen (Lantus Solostar U-100 Insulin) donepezil 5 mg tablet 5 mg PO QHS MEMORY 08/16/24 Unknown History gabapentin 100 mg capsule 200 mg PO TID NEUROPATHY 08/16/24 Unknown History insulin lispro 100 unit/mL See Protocol subcut TID DIABETIC 08/16/24 Unknown History subcutaneous pen (Humalog KwikPen (U-100) Insulin) lurasidone 40 mg tablet 40 mg PO QHS MOOD 08/16/24 Unknown History potassium chloride 10 mEq 10 meq PO BID POTASSIUM 08/16/24 Unknown History capsule,extended release torsemide 20 mg tablet 20 mg PO BID HEART 08/16/24 Unknown History budesonide-formoterol HFA 160 1 puff inhalation DAILY COPD 09/16/24 Unknown History mcg-4.5 mcg/actuation aerosol inhaler (Symbicort) lactulose 20 gram/30 mL oral 30 ml PO DAILY CONSTIPATION 09/16/24 Unknown History solution trazodone 100 mg tablet 100 mg PO QHS insomnia 09/16/24 Unknown History cefpodoxime 100 mg tablet 100 mg PO BID ANTIBOTIC #20 tabs 10/12/24 Unknown Rx Allergy/AdvReac Type Severity Reaction Status Date / Time ibuprofen (From Nuprin) Allergy Unknown Verified 10/13/24 11:49 Family History Mother Diabetes Father Cirrhosis of liver Alcoholism Surgical History History of incision and drainage History of embolic filter insertion History of right inguinal hernia repair H/O colectomy History of repair of inguinal hernia History of bladder surgery History of tonsillectomy and adenoidectomy History of right inguinal hernia repair S/P AVR (aortic valve replacement) Social History housing: [facility] Smoking Status: Former smoker how long ago did patient quit smoking: Quit ~ 20 yrs prior, smoked age 15 until quit ~ 2 ppd. alcohol intake: never substance use type: does not use Physical Exam Narrative Vascular: Dorsalis pedis posterior tibial pulses palpable bilateral feet. Atrophic skin changes noted to bilateral feet. Hemosiderin deposits noted to bilateral feet and lower extremities. +1 pitting edema noted to right lower extremity +2 pitting edema noted to left lower extremity around the CHANTE malleoli region. Diffuse varicosities noted bilaterally. Neurologic: Light touch protective sensation intact to bilateral feet. Dermatologic: Wound full-thickness down to including level of subcutaneous tissue noted to the right lateral extremity with a mixed fibro granular base predebridement measuring 11.0 x 2.7 x 0.3 cm, postdebridement the wound demonstrated clean 100% granular base with adequate bleeding measuring 11.2 x 3.0 x 0.3 cm. The wound failed to demonstrate any deep probing undermining. There is scant serosanguineous drainage noted. Periwound area is devoid of any erythema edema fluctuance warmth additional skin breakdown with concern for deep abscess or infection. Musculoskeletal: No sign DVT bilateral lower extremity. Muscular strength full to bilateral lower extremity compartments. Lab / Micro Data 10/15/24 06:13 10/15/24 06:13 Labs: Laboratory Results - last 24 hr 10/14/24 04:57: Platelet Estimate SLT, Plt Morphology Comment LARGE 10/14/24 11:33: POC Glucose 126 H 10/14/24 13:35: Vancomycin Trough 22.3 H 10/14/24 21:49: Random Vancomycin 15.9 H 10/14/24 22:26: POC Glucose 150 H 10/15/24 06:02: POC Glucose 113 H 10/15/24 06:13: WBC 3.7 L, RBC 3.66 L, Hgb 10.1 L, Hct 31.7 L, MCV 86.6, MCH 27.6, MCHC 31.9 L D, RDW Std Deviation 51.3 H, RDW Coeff of Carlito 16.3 H, Plt Count 135 L, MPV 12.3 H, Immature Gran % (Auto) 4.000 H, Neut % (Auto) 51.1, Lymph % (Auto) 25.3, [place] % (Auto) 15.1 H, Eos % (Auto) 4.0, Baso % (Auto) 0.5, Absolute Neuts (auto) 1.9 L, Absolute Lymphs (auto) 0.94, Nucleated RBC % 0.5, Platelet Estimate SLT DEC, Polychromasia 1+, Sodium 140, Potassium 3.9, Chloride 107, Carbon Dioxide 25.0, Anion Gap 8, BUN 19, Creatinine 0.94, Estim Creat Clear Calc 99.66, Est GFR (MDRD) Non-Af 87, BUN/Creatinine Ratio 19.7, Glucose 106 H, Calcium 8.3 Imaging Radiology Impression Echocardiogram 10/13/24 15:13 Interpretation Summary The estimated ejection fraction is 70 %. No evidence for diastolic dysfunction. Velocity across the bioprosthetic aortic valve appears to be increased suggestive of stenosis. Trivial aortic valve insufficiency. Ordering Physician: Monika Garcias Referring Physician: SAUL BUTLER Performed By: Maite Smith RCS
--- NOTE | 2024-10-15 09:43 | VDLE_ITS ---
Reason For Study Reason For Study: BIlateral leg pain RIGHT LEFT GSV is normal. GSV is normal. CFV is compressible, spontaneous, phasic, competent CFV is compressible, spontaneous, phasic, competent, and demonstrates normal augmentation. and demonstrates normal augmentation. FV is compressible, spontaneous, phasic, competent FV is compressible, spontaneous, phasic, competent and demonstrates normal augmentation. and demonstrates normal augmentation. POP V is compressible, spontaneous, phasic, competent FV mid and distal are partially compessible with and demonstrates normal augmentation. venous flow noted. T/P Trunk is compressible. PopV is partaially compressible. Normal venous flow PTV is compressible. noted. RT PerV is compressible. T/P trunk is partially compressible. Procedure PTV is compressible. This is a venous duplex using B-mode, color flow and LT PerV is compressible. spectral Doppler. Exam performed portable in patient room. Bilateral calf veins only visualized at distal calf due to bandages. Technically difficult to visualize the peroneal veins. A preliminary report was called and/or faxed to [facility]. VL/Venous Duplex US - Ham Extrem Interpretation Summary Chronic deep vein thrombosis noted left femoral vein, popliteal vein, tibiopero nick trunk vein Deep veins of the right lower extremity are patent and compressible segmentally . There is no evidence of right lower extremity deep vein thrombosis. The bilateral great saphenous veins appear smith nt and compressible segmentally. Ordering Physician: Jasbir Montoya Referring Physician: Mino Wang Performed By: Sheri Jones RVT
--- NOTE | 2024-10-15 09:43 | ART_ITS ---
Reason For Study Reason For Study: PVD Procedure A bilateral lower extremity continuous wave Doppler with analog waveform analysis,segmental pressures,and ankle brachial indexes without exercise. Left Segmental Pressures Left posterior tibial artery = 153mmHg. Left dorsalis pedis artery = 152mmHg. Left digit = 118 mmHg. Right Segmental Pressures Right brachial= 128mmHg. Right posterior tibial artery = 175mmHg. Right dorsalis pedis artery = 160mmHg. Right digit = 119 mmHg. Indices The right ankle brachial index by the posterior tibial artery is 1.37. The right ankle brachial index by the dorsalis pedis is 1.25. The right digital-brachial index is 0.93. The left ankle brachial index by the posterior tibial artery is 1.20. The left ankle brachial index by the dorsalis pedis is 1.19. The left digital-brachial index is 0.92. VL/Lower Ext Art Exam w/o Exercis Interpretation Summary Right PERICO 1.37, normal. TBI and Doppler/PVR waveforms of the right leg normal a t rest. Left PERICO 1.2, normal. TBI and Doppler/PVR waveforms of the left leg normal at r est. Ordering Physician: Jasbir Montoya Referring Physician: Kathleen Herzog Performed By: Rasheed Norman RVT
[2024-10-15] MEDS: Cyanocobalamin 500 MCG Tablet PO (11:29)
[2024-10-15] MEDS: amLODIPine 5 MG Tablet PO (11:29)
[2024-10-15] MEDS: Menthol/Lanolin/Calamine/Znox 113 GM Tube 1 APPLIC TOPICAL ×2 (11:29→21:26)
[2024-10-15] MEDS: Furosemide 40 MG Tablet PO ×2 (11:29→21:24)
[2024-10-15] MEDS: Lactulose 20 GM/30 ML UDC PO (11:29)
[2024-10-15 12:00] VITALS: BP 143/70; PULSE 65; RESP 18; TEMP 36.6; O2SAT 98
[2024-10-15] MEDS: Glucerna Shake 120 ML LIQUID PO ×2 (13:09→17:45)
[2024-10-15 13:12] LABS: Bedside Glucose 118 mg/dL (74-106)
[2024-10-15] MEDS: Ondansetron 4 MG/2 ML Vial IV (14:56)
[2024-10-15 17:49] VITALS: BP 114/64; PULSE 61; RESP 18; TEMP 36.6; O2SAT 95
[2024-10-15 17:55] VITALS: PULSE 61; RESP 18; O2SAT 95
[2024-10-15 18:09] LABS: Bedside Glucose 170 mg/dL (74-106)
[2024-10-15 21:20] VITALS: BP 147/75; PULSE 57; RESP 18; TEMP 36.8; O2SAT 94
[2024-10-15] MEDS: NYSTATIN 500,000 UNIT/5 ML UDC 500000 UNIT PO (21:24)
[2024-10-15] MEDS: oxyCODONE 5 MG Tablet PO (21:24)
[2024-10-15] MEDS: Tamsulosin HCl 0.4 MG Capsule PO (21:24)
[2024-10-15] MEDS: Acetaminophen 325 MG Tablet 650 MG PO (21:24)
[2024-10-15] MEDS: LURASIDONE HCL 40 MG TABLET PO (21:24)
[2024-10-15] MEDS: traZODone 100 MG Tablet PO (21:25)
[2024-10-15] MEDS: Atorvastatin Calcium 20 MG Tablet PO (21:25)
[2024-10-15] MEDS: MELATONIN 3 MG TABLET 6 MG PO (21:25)
[2024-10-15] MEDS: Donepezil HCl 5 MG Tablet PO (21:25)
[2024-10-15] MEDS: Insulin Glargine-YFGN 100 UNIT/ML Pen 18 UNIT SC (21:25)
[2024-10-15 22:29] LABS: Bedside Glucose 138 mg/dL (74-106)
[2024-10-16 00:07] LABS: Vancomycin, Trough Level 24.2 ug/mL (5.0-15.0)
--- NOTE | 2024-10-16 01:31 | PCM.RX.CS ---
Consult Antibiotic Management Pharmacy has been consulted to manage selected antibiotic: Vancomycin Type of Intervention Type of Consult: Follow-up Labs Labs: Sodium 140 mmol/L (133-145) 10/15/24 06:13 Potassium 3.9 mmol/L (3.3-5.1) 10/15/24 06:13 Chloride 107 mmol/L (98-108) 10/15/24 06:13 Carbon Dioxide 25.0 mmol/L (21.0-32.0) 10/15/24 06:13 Anion Gap 8 (5-15) 10/15/24 06:13 BUN 19 mg/dL (4-19) 10/15/24 06:13 Creatinine 0.94 mg/dL (0.70-1.20) 10/15/24 06:13 Est GFR (MDRD) Non-Af 87 (>60) 10/15/24 06:13 BUN/Creatinine Ratio 19.7 RATIO (10-20) 10/15/24 06:13 Glucose 106 mg/dL (70-99) H 10/15/24 06:13 Vancomycin Trough 24.2 ug/mL (5.0-15.0) H 10/15/24 22:59 Random Vancomycin 15.9 ug/mL (0.0-15.0) H 10/14/24 21:49 Microbiology Microbiology: Microbiology 10/14/24 12:00 Wound - Leg, Right Gram Stain - Final 10/14/24 12:00 Wound - Leg, Right Wound Culture - Preliminary Staphylococcus aureus Coag Negative Staph 10/13/24 13:15 Blood Culture (Wb) - Anticubital Left Blood Culture - Preliminary No growth in 48 hours. 10/13/24 12:40 Blood Culture (Wb) - Anticubital Left Blood Culture - Preliminary No growth in 48 hours. Goal Trough Goal Trough: 15-20 mcg/mL Pharmacy Plan for Drug Dosing Pharmacy Plan for Drug Dosing: Pharmacy Service will continue to monitor and adjust dosing as required. TROUGH 24.2 @ 7 HOURS. HOLD DOSE AND DRAW RANDOM LEVEL IN 12 HOURS Follow-Up Labs Follow-Up Labs: Trough: Vancomycin Date/Time Labs Ordered Labs to be done on [date and time ordered]: 10/16 @ 1100
[2024-10-16 04:51] VITALS: BP 131/64; PULSE 51; RESP 18; TEMP 36.6; O2SAT 93
[2024-10-16] MEDS: Nystatin Powder 15gm Bottle 1 APPLIC TOPICAL ×2 (04:59→22:25)
[2024-10-16 05:09] LABS: Absolute Lymphocyte Count 1.33 X10^3/uL (0.83-4.51); Absolute Neutrophil Count 1.9 X10^3/uL (2.0-7.7); Basophil# 0.02 X10^3/uL; Basophil% 0.5 % (0-1); Eosinophil# 0.17 X10^3/uL; Eosinophils% 4.2 % (0-5); Hematocrit 30.6 % (40-54); Hemoglobin 9.7 g/dL (13.0-16.5); Lymphocyte # 1.33 X10^3/ul (0.83-4.51); Lymphocyte % 32.7 % (19-41); Mean Corp Hgb Conc 31.7 g/dL (32-36); Mean Corpuscular Hgb 27.7 pg (27.0-32.0); Mean Corpuscular Volume 87.4 fL (80-94); Mean Platelet Vol. 12.4 fl (6.2-12.0); Monocyte# 0.54 X10^3/uL; Monocyte% 13.3 % (0-10); NRBC Flagged by Analyzer 0 % (0-5); Neutrophil # 1.93 X10^3/uL (2.7-7.7); Neutrophil % 47.3 % (47-70); POSITIVE MORPHOLOGY YES; Platelet Count 165 K/mm3 (150-450); RBC Distribution Width CV 16.5 % (11.6-14.6); RBC Distribution Width SD 52.1 fl (35.1-43.9); White Blood Count 4.1 K/mm3 (4.4-11.0)
[2024-10-16 05:23] LABS: Differential Indicated SCAN CRITERIA MET
[2024-10-16 05:46] LABS: Anion Gap 5 (5-15); BUN 20 mg/dL (4-19); Calcium,Total 8.3 mg/dL (7.6-11.0); Carbon Dioxide 26.2 mmol/L (21.0-32.0); Chloride 108 mmol/L (98-108); Creatinine, Serum 0.98 mg/dL (0.70-1.20); EST Glomerular Filtration Rate 84 (>60); Estimated Creatinine Clearance 95.59 ml/min (50-250); Glucose 109 mg/dL (70-99); Sodium Level 140 mmol/L (133-145)
[2024-10-16 06:04] LABS: Bedside Glucose 103 mg/dL (74-106)
--- NOTE | 2024-10-16 06:46 | PCM.HOSP.N ---
Hospitalist Note Patient reporting to RN that is is fatigued, tired of dealing with his health care, refused medications this am, no specific plan, case management consulted and will be made aware.
--- NOTE | 2024-10-16 07:04 | NURSING ---
0530 pt refusing am meds this am, pt would not respond to this RNs questions. appears to be giving this RN the silent treatment. pt eventually voiced to this RN that he is tired of dealing with this in regards to his health. im just over everything. pt did not voice a plan and did not voice suicidal ideation. pt would not answer any further assessment or questions in regards to the aforementioned. pt just tearful and kept shaking his head. this RN asked pt about his son Hu who is listed in the computer as POA. Pt did not answer this RN in regards to calling son Hu. this RN sat at bedside for approx 20 min this am and provided theraputic prescence and attmepted emotional support. 0700 this RN made phone call to son Hu. Hu was updated on pts condition and pt appearing depressed and withdrawn and refusing medications. Hu voiced that pt has been increasingly depressed ever since 2022 when pts . Hu states that pt never has made any suicidal attempts or threats or ideations in the past. Hu states that pt was placed on Latuda back in July of 2024 as pt flipped out and had an episode back in Jul at the alf and was shipped to [facility] in [place], [place]. Hu states that pt was diagnosed with severe depression and bipolar back at that time and Hu also states that pt refuses meds and care at the alf from time to time, and goes into periods where he does not want to talk to anyone including me. emotional support provided to Hu, and this RN encouraged Hu to visit if able. Hu asked what room pt was in and asked for pts room phone number. aforementioned provided to Hu. This RN notified Hu that our hospitalist was notified of increased depression and that we consulted social work/ case management to further assess the plan of care going forward. Hu asked about starting pt on additional meds to help with depression: MD Xie notified and Rojas said to consult case management and we will leave additional meds up to dayshift doc. all questions answered and Hu is aware of poc at this time.
[2024-10-16 07:54] LABS: Differential Comment SCANNED
--- NOTE | 2024-10-16 08:01 | PN.HOSP_ITS ---
Reason for Visit Reason for Visit: Diagnoses Cellulitis of right lower limb (10/13/24) Non-pressure chronic ulcer of 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 (10/13/24) Bacteremia (10/13/24) Subjective Subjective Declined labs. Wants to be left alone. Objective Data Objective Data Vital Signs: Vital Signs Temp Pulse Resp BP Pulse Ox O2 Del Method 36.6 C 51 L 18 131/64 H 93 Room Air 10/16/24 04:51 10/16/24 04:51 10/16/24 04:51 10/16/24 04:51 10/16/24 04:51 10/16/24 04:51 Oxygen Delivery Method Room Air Weight: 134.9 kg Body Mass Index (BMI) 44.0 Intake & Output: Intake and Output for Last 24 Hours 10/14/24 10/15/24 10/16/24 23:59 23:59 23:59 Intake Total 770 / 770 1625 / 1625 Output Total 3750 / 3750 3050 / 3050 1400 / 1400 Balance -2980 / -2980 -1425 / -1425 -1400 / -1400 Lab / Micro Data 10/17/24 04:32 10/17/24 04:32 Labs: Laboratory Results - last 24 hr 10/15/24 06:13: Platelet Estimate SLT DEC, Polychromasia 1+, Sodium 140, Potassium 3.9, Chloride 107, Carbon Dioxide 25.0, Anion Gap 8, BUN 19, Creatinine 0.94, Estim Creat Clear Calc 99.66, Est GFR (MDRD) Non-Af 87, BUN/Creatinine Ratio 19.7, Glucose 106 H, Calcium 8.3 10/15/24 12:48: POC Glucose 118 H 10/15/24 17:43: POC Glucose 170 H 10/15/24 21:23: POC Glucose 138 H 10/15/24 22:59: Vancomycin Trough 24.2 H 10/16/24 04:45: WBC 4.1 L, RBC 3.50 L, Hgb 9.7 L, Hct 30.6 L, MCV 87.4, MCH 27.7, MCHC 31.7 L, RDW Std Deviation 52.1 H, RDW Coeff of Carlito 16.5 H, Plt Count 165, MPV 12.4 H, Immature Gran % (Auto) 2.000 H, Neut % (Auto) 47.3, Lymph % (Auto) 32.7, [place] % (Auto) 13.3 H, Eos % (Auto) 4.2, Baso % (Auto) 0.5, Absolute Neuts (auto) 1.9 L, Absolute Lymphs (auto) 1.33, Nucleated RBC % 0, Differential Comment SCANNED, Sodium 140, Potassium 4.0, Chloride 108, Carbon Dioxide 26.2, Anion Gap 5, BUN 20 H, Creatinine 0.98, Estim Creat Clear Calc 95.59, Est GFR (MDRD) Non-Af 84, BUN/Creatinine Ratio 20.0, Glucose 109 H, Calcium 8.3 10/16/24 04:55: POC Glucose 103 Micro: Microbiology 10/14/24 12:00 Wound - Leg, Right Gram Stain - Final 10/14/24 12:00 Wound - Leg, Right Wound Culture - Preliminary Staphylococcus aureus Coag Negative Staph 10/13/24 13:15 Blood Culture (Wb) - Anticubital Left Blood Culture - Preliminary No growth in 48 hours. 10/13/24 12:40 Blood Culture (Wb) - Anticubital Left Blood Culture - Preliminary No growth in 48 hours. Physical Exam Const alert and no apparent distress Constitutional Narrative: flat affect. no eye contact. declines to answer orientation questions. Assessment & Plan Assessment/Plan (1) Bacteremia: PLAN: MRSA positive on 10/10 (1 of 2). Negative on 10/13. 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 aureus and [employer]. Recheck BCx. ID consulted. FLORENCE no vegatation. on vancomycin (2) Non-pressure chronic ulcer of 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: PLAN: debrided by podiatry on 10/15 PLAN: Plan Chronic conditions: * Left renal mass: follow up with GI * HTN: amlodipine * HLP: statin * DM2: glargine. add SSI. VTE prophylaxis: not indicated already on apixaban. Charges/Coding Visit Charges Inpatient E&M: 24438 Subs Hosp L1
[2024-10-16 08:15] VITALS: BP 132/59; PULSE 55; RESP 18; TEMP 37; O2SAT 96
[2024-10-16] MEDS: Ceftriaxone 2 GM in 0.9% Normal Saline (50mL MB+) 50 ML IV (10:13)
[2024-10-16] MEDS: 0.9% Saline Lock 10 ML Syringe IV (10:15)
--- NOTE | 2024-10-16 10:28 | PCM.PROGNOTE ---
Subjective Subjective No changes overnight Objective Data Objective Data Vital Signs: Vital Signs Temp Pulse Resp BP Pulse Ox O2 Del Method 98.6 F 55 L 18 132/59 H 96 Room Air 10/16/24 08:15 10/16/24 08:15 10/16/24 08:15 10/16/24 08:15 10/16/24 08:15 10/16/24 08:15 Oxygen Delivery Method Room Air Weight: 134.9 kg Body Mass Index (BMI) 44.0 Intake & Output: Intake and Output for Last 24 Hours 10/14/24 10/15/24 10/16/24 23:59 23:59 23:59 Intake Total 770 / 770 1625 / 1625 Output Total 3750 / 3750 3050 / 3050 1400 / 1400 Balance -2980 / -2980 -1425 / -1425 -1400 / -1400 Lab / Micro Data 10/16/24 04:45 10/16/24 04:45 Labs: Laboratory Results - last 24 hr 10/15/24 12:48: POC Glucose 118 H 10/15/24 17:43: POC Glucose 170 H 10/15/24 21:23: POC Glucose 138 H 10/15/24 22:59: Vancomycin Trough 24.2 H 10/16/24 04:45: WBC 4.1 L, RBC 3.50 L, Hgb 9.7 L, Hct 30.6 L, MCV 87.4, MCH 27.7, MCHC 31.7 L, RDW Std Deviation 52.1 H, RDW Coeff of Carlito 16.5 H, Plt Count 165, MPV 12.4 H, Immature Gran % (Auto) 2.000 H, Neut % (Auto) 47.3, Lymph % (Auto) 32.7, [place] % (Auto) 13.3 H, Eos % (Auto) 4.2, Baso % (Auto) 0.5, Absolute Neuts (auto) 1.9 L, Absolute Lymphs (auto) 1.33, Nucleated RBC % 0, Differential Comment SCANNED, Sodium 140, Potassium 4.0, Chloride 108, Carbon Dioxide 26.2, Anion Gap 5, BUN 20 H, Creatinine 0.98, Estim Creat Clear Calc 95.59, Est GFR (MDRD) Non-Af 84, BUN/Creatinine Ratio 20.0, Glucose 109 H, Calcium 8.3 10/16/24 04:55: POC Glucose 103 Micro: Microbiology 10/14/24 12:00 Wound - Leg, Right Gram Stain - Final 10/14/24 12:00 Wound - Leg, Right Wound Culture - Preliminary Staphylococcus aureus Coag Negative Staph 10/13/24 13:15 Blood Culture (Wb) - Anticubital Left Blood Culture - Preliminary No growth in 48 hours. 10/13/24 12:40 Blood Culture (Wb) - Anticubital Left Blood Culture - Preliminary No growth in 48 hours. Physical Exam Narrative Vascular: Dorsalis pedis posterior tibial pulses palpable bilateral feet. Atrophic skin changes noted to bilateral feet. Hemosiderin deposits noted to bilateral feet and lower extremities. +1 pitting edema noted to right lower extremity +2 pitting edema noted to left lower extremity around the CHANTE malleoli region. Diffuse varicosities noted bilaterally. Neurologic: Light touch protective sensation intact to bilateral feet. Dermatologic: Wound full-thickness down to including level of subcutaneous tissue noted to the right lateral extremity with a mixed fibro granular base predebridement measuring 11.0 x 2.7 x 0.3 cm, postdebridement the wound demonstrated clean 100% granular base with adequate bleeding measuring 11.2 x 3.0 x 0.3 cm. The wound failed to demonstrate any deep probing undermining. There is scant serosanguineous drainage noted. Periwound area is devoid of any erythema edema fluctuance warmth additional skin breakdown with concern for deep abscess or infection. Musculoskeletal: No sign DVT bilateral lower extremity. Muscular strength full to bilateral lower extremity compartments. Assessment & Plan Assessment/Plan (1) Blood bacterial culture positive: PLAN: Exam performed. Vital signs stable Right lower extremity ulceration wound culture growing staph aureus Urine culture + proteus mirabilis no growth new blood cultures from different site 10/16/24. Wound to right leg is stable and non-infected. wound care on board, podiatry to sign off. Patient to follow up at wound care center in outpatient setting follow up closely (2) Cellulitis of right lower limb: (3) Non-pressure chronic ulcer of 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:
--- NOTE | 2024-10-16 10:54 | NURSING ---
Lab came up to draw pt Vanc level and pt refused. This RN went into the room to talk with the pt and he still refused. Dr. bridges.
--- NOTE | 2024-10-16 11:16 | WOUNDNOTE ---
wound photo: right lateral lower leg
[2024-10-16 14:15] VITALS: BP 155/67; PULSE 56; RESP 18; TEMP 36.4; O2SAT 95
[2024-10-16] MEDS: Gabapentin 100 MG Capsule 200 MG PO ×2 (14:22→22:22)
--- NOTE | 2024-10-16 14:38 | CASEMGMT ---
Social Work- SW called Angelique at [facility] to discuss pt baseline emotion. Angelique reports that she feels pt baseline is a constant depressive state, but feels that pt may be more depressed recently. Angelique reports that the physician at the facility is the prescribing dr for psych meds and does not believe there have been any proposed changes to medication. Angelique was unable to answer questions regarding refusals, patterns of behavior of pt and offered to have a direct care staff person call SW. RADHA will remain available to follow. LEATHA Alonso
[2024-10-16 14:45] LABS: Bedside Glucose 93 mg/dL (74-106)
--- NOTE | 2024-10-16 14:52 | PCM.CONS.GEN ---
Assessment & Plan Assessment/Plan (1) Bacteremia: PLAN: MRSA and proteus bacteremia. Concern for endocarditis given murmur and splinter hemorrhage on L index finger. Echo and repeat bcx pending. On vanc, added ceftriaxone. VALENTIN improved, fever improved. Wound cx with staph aureus and CoNS. Has been refusing food, pills, and lab draws. Emphasized to him that this infection can kill him if we do not treat. Will follow, thank you, d/w nursing and Dr. Gates. (2) Cellulitis of right lower limb: (3) UTI (urinary tract infection): (4) Sepsis: HPI Consult Data Date of Consult: 10/16/24 HPI Narrative Reason for Consultation: MRSA bacteremia HPI Narrative: SHANELLE HUNTER, is a 69 M with h/o IDDM, ECF resident, admitted 10/10 for uti. Ucx with proteus, sent out on cefpodoxime. Called back due to (+) bcx on 10/13. Admitted on iv vanc. Here has been refusing meds, food, and lab draws. Denies pain anywhere. No fever. Wants to just go back to facility. Full ROS performed and neg except as noted above. [facility] Medical History MRSA (methicillin resistant staph aureus) culture positive Lives in shelter Wears dentures Depression Anxiety Walker as ambulation aid Ambulates with cane Headache Shortness of breath on exertion Cardiology follow-up encounter History of renal disease Insulin dependent diabetes mellitus Pressure ulcer Abscess Indwelling urethral catheter present Acute painful diabetic polyneuropathy Cancer Former smoker CPAP (continuous positive airway pressure) dependence On home oxygen therapy Pulmonary embolism COPD (chronic obstructive pulmonary disease) Myocardial infarct DVT (deep venous thrombosis) Anemia Ulcer with necrosis of muscle Lymphedema of left lower extremity Lymphedema of right lower extremity Edema of left lower leg Edema of right lower leg Left leg swelling Right leg swelling Chronic venous insufficiency Non-pressure ulcer of right lower extremity with necrosis of muscle BPH (benign prostatic hyperplasia) Atrial fibrillation Blood loss anemia Hypertension Hiatal hernia Diverticulosis Debility Morbid obesity with BMI of 40.0-44.9, adult Impaired mobility SOB (shortness of breath) Heart murmur Heart failure 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 2 diabetes mellitus Aortic valve disease Renal mass, left History of DVT (deep vein thrombosis) Valvular heart disease Atrial fibrillation/flutter Chronic acquired lymphedema Chronic anemia Venous insufficiency (chronic) (peripheral) Ulcer of left lower extremity with fat layer exposed Superficial thrombosis of left lower extremity Peripheral vascular disease of lower extremity with ulceration Sleep apnea Morbid obesity DM2 (diabetes mellitus, type 2) Benign essential HTN Home Medications ?Medication ?Instructions ?Recorded ?Last Taken ?Type aspirin 81 mg tablet,delayed 81 mg PO DAILY AFIB 03/17/19 Unknown History release amlodipine 5 mg tablet 5 mg PO DAILY AFIB 10/28/23 Unknown History apixaban 5 mg tablet (Eliquis) 5 mg PO BID AFIB 10/28/23 Unknown History atorvastatin 20 mg tablet 20 mg PO QHS HYPERLIPIDEMIA 10/28/23 10/13/24 History melatonin 3 mg tablet 6 mg PO QHS INSOMNIA 10/28/23 Unknown History tamsulosin 0.4 mg capsule 0.4 mg PO QHS PROSTATIC HYPERPLASIA 12/22/23 Unknown History acetaminophen 325 mg tablet 650 mg PO Q4H PRN pain 06/01/24 Unknown History (Tylenol) cyanocobalamin (vitamin B-12) 500 mcg PO DAILY VITAMIN 06/01/24 Unknown History 1,000 mcg capsule insulin glargine 100 unit/mL (3 23 unit subcut QHS DIABETIC 06/01/24 Unknown History mL) subcutaneous pen (Lantus Solostar U-100 Insulin) donepezil 5 mg tablet 5 mg PO QHS MEMORY 08/16/24 Unknown History gabapentin 100 mg capsule 200 mg PO TID NEUROPATHY 08/16/24 Unknown History insulin lispro 100 unit/mL See Protocol subcut TID DIABETIC 08/16/24 Unknown History subcutaneous pen (Humalog KwikPen (U-100) Insulin) lurasidone 40 mg tablet 40 mg PO QHS MOOD 08/16/24 Unknown History potassium chloride 10 mEq 10 meq PO BID POTASSIUM 08/16/24 Unknown History capsule,extended release torsemide 20 mg tablet 20 mg PO BID HEART 08/16/24 Unknown History budesonide-formoterol HFA 160 1 puff inhalation DAILY COPD 09/16/24 Unknown History mcg-4.5 mcg/actuation aerosol inhaler (Symbicort) lactulose 20 gram/30 mL oral 30 ml PO DAILY CONSTIPATION 09/16/24 Unknown History solution trazodone 100 mg tablet 100 mg PO QHS insomnia 09/16/24 Unknown History cefpodoxime 100 mg tablet 100 mg PO BID ANTIBOTIC #20 tabs 10/12/24 Unknown Rx Allergy/AdvReac Type Severity Reaction Status Date / Time ibuprofen (From Nuprin) Allergy Unknown Verified 10/13/24 11:49 Family History Mother Diabetes Father Cirrhosis of liver Alcoholism Surgical History History of incision and drainage History of embolic filter insertion History of right inguinal hernia repair H/O colectomy History of repair of inguinal hernia History of bladder surgery History of tonsillectomy and adenoidectomy History of right inguinal hernia repair S/P AVR (aortic valve replacement) Social History housing: shelter Smoking Status: Former smoker how long ago did patient quit smoking: Quit ~ 20 yrs prior, smoked age 15 until quit ~ 2 ppd. alcohol intake: never substance use type: does not use Physical Exam Const alert and no apparent distress General Appearance: cooperative HEENT normocephalic and head/scalp atraumatic Eyes PERRL and EOMs intact bilaterally Neck supple and No nodes Resp normal air movement and clear to auscultation bilaterally Cardio regular rate and regular rhythm Heart Sounds: murmur GI soft to palpation, non-tender and non-distended Extremity General Extremity: edema Skin Skin Narrative: Splinter hemorrhage L index finger. Reviewed wound photo RLE Neuro CN's II-XII intact bilaterally Lab / Micro Data Attestation: I reviewed the patient's lab results. 10/16/24 04:45 10/16/24 04:45 Labs: Laboratory Results - last 24 hr 10/15/24 17:43: POC Glucose 170 H 10/15/24 21:23: POC Glucose 138 H 10/15/24 22:59: Vancomycin Trough 24.2 H 10/16/24 04:45: WBC 4.1 L, RBC 3.50 L, Hgb 9.7 L, Hct 30.6 L, MCV 87.4, MCH 27.7, MCHC 31.7 L, RDW Std Deviation 52.1 H, RDW Coeff of Carlito 16.5 H, Plt Count 165, MPV 12.4 H, Immature Gran % (Auto) 2.000 H, Neut % (Auto) 47.3, Lymph % (Auto) 32.7, [place] % (Auto) 13.3 H, Eos % (Auto) 4.2, Baso % (Auto) 0.5, Absolute Neuts (auto) 1.9 L, Absolute Lymphs (auto) 1.33, Nucleated RBC % 0, Differential Comment SCANNED, Sodium 140, Potassium 4.0, Chloride 108, Carbon Dioxide 26.2, Anion Gap 5, BUN 20 H, Creatinine 0.98, Estim Creat Clear Calc 95.59, Est GFR (MDRD) Non-Af 84, BUN/Creatinine Ratio 20.0, Glucose 109 H, Calcium 8.3 10/16/24 04:55: POC Glucose 103 10/16/24 14:09: POC Glucose 93 Micro: Microbiology 10/14/24 12:00 Wound - Leg, Right Gram Stain - Final 10/14/24 12:00 Wound - Leg, Right Wound Culture - Final Meth. resistant Staph. aureus Coag Negative Staph 10/13/24 13:15 Blood Culture (Wb) - Anticubital Left Blood Culture - Preliminary No growth in 48 hours. 10/13/24 12:40 Blood Culture (Wb) - Anticubital Left Blood Culture - Preliminary No growth in 48 hours.
--- NOTE | 2024-10-16 16:12 | CHAPLAIN ---
Type of Pastoral Visit _x__ Initial Visit ___ Follow-up Visit ___ On-call Visit ___ General Patient Visit ___ Spiritual Assessment ___ Family Conference ___ Bereavement ___ Rapid Response ___ Code Blue ___ Other (describe below) Pastoral Care Referral From _x__ Patient ___ Family ___ Nurse ___ Physician ___ Turn Sewer ___ Portfolio Administrator ___ Other (describe below) Sacrament/Intervention ___ Active listening ___ Anointing ___ Roman Catholic ___ Bereavement ___ Communion ___ Aziza exploration ___ ___ Life review ___ Prayer ___ Reconciliation ___ Sacrament of Sick _x__ Supportive presence ___ Wedding ___ Other (describe below) Pastoral Comments patient is very discouraged and believes that he is dying; pt says no need to pray because he is going to ; pt has not told his fundraising manager or holiness to help him; his son is too busy to see him; pt would hardly look into eyes; helped pt call for the nurse on the call button but he would not say what he wanted from the nurse
[2024-10-16 16:43] LABS: Bedside Glucose 192 mg/dL (74-106)
[2024-10-16] MEDS: Insulin Lispro 100 UNIT/ML INSULN.PEN SC ×2 (16:49→22:18)
[2024-10-16] MEDS: Potassium Chloride Oral Tablet 10 MEQ PO (16:49)
[2024-10-16] MEDS: Glucerna Shake 120 ML LIQUID PO (16:49)
[2024-10-16 20:15] VITALS: BP 149/78; PULSE 53; RESP 16; TEMP 36.9; O2SAT 98
[2024-10-16] MEDS: Insulin Glargine-YFGN 100 UNIT/ML Pen 18 UNIT SC (22:18)
[2024-10-16] MEDS: traZODone 100 MG Tablet PO (22:19)
[2024-10-16] MEDS: Furosemide 40 MG Tablet PO (22:19)
[2024-10-16] MEDS: Tamsulosin HCl 0.4 MG Capsule PO (22:19)
[2024-10-16] MEDS: Donepezil HCl 5 MG Tablet PO (22:19)
[2024-10-16] MEDS: MELATONIN 3 MG TABLET 6 MG PO (22:19)
[2024-10-16] MEDS: Atorvastatin Calcium 20 MG Tablet PO (22:20)
[2024-10-16] MEDS: LURASIDONE HCL 40 MG TABLET PO (22:20)
[2024-10-16] MEDS: Menthol/Lanolin/Calamine/Znox 113 GM Tube 1 APPLIC TOPICAL (22:33)
[2024-10-16] MEDS: Acetaminophen 325 MG Tablet 650 MG PO (22:36)
[2024-10-16 22:52] LABS: Bedside Glucose 150 mg/dL (74-106)
[2024-10-17 00:05] LABS: Vancomycin, Random Level 10.3 ug/mL (0.0-15.0)
--- NOTE | 2024-10-17 00:21 | PCM.RX.CS ---
Consult Antibiotic Management Pharmacy has been consulted to manage selected antibiotic: Vancomycin Type of Intervention Type of Consult: Follow-up Labs Labs: Sodium 140 mmol/L (133-145) 10/16/24 04:45 Potassium 4.0 mmol/L (3.3-5.1) 10/16/24 04:45 Chloride 108 mmol/L (98-108) 10/16/24 04:45 Carbon Dioxide 26.2 mmol/L (21.0-32.0) 10/16/24 04:45 Anion Gap 5 (5-15) 10/16/24 04:45 BUN 20 mg/dL (4-19) H 10/16/24 04:45 Creatinine 0.98 mg/dL (0.70-1.20) 10/16/24 04:45 Est GFR (MDRD) Non-Af 84 (>60) 10/16/24 04:45 BUN/Creatinine Ratio 20.0 RATIO (10-20) 10/16/24 04:45 Glucose 109 mg/dL (70-99) H 10/16/24 04:45 Vancomycin Trough 24.2 ug/mL (5.0-15.0) H 10/15/24 22:59 Random Vancomycin 10.3 ug/mL (0.0-15.0) 10/16/24 23:07 Microbiology Microbiology: Microbiology 10/14/24 12:00 Wound - Leg, Right Gram Stain - Final 10/14/24 12:00 Wound - Leg, Right Wound Culture - Final Meth. resistant Staph. aureus Coag Negative Staph 10/13/24 13:15 Blood Culture (Wb) - Anticubital Left Blood Culture - Preliminary No growth in 48 hours. 10/13/24 12:40 Blood Culture (Wb) - Anticubital Left Blood Culture - Preliminary No growth in 48 hours. Goal Trough Goal Trough: 15-20 mcg/mL Pharmacy Plan for Drug Dosing Pharmacy Plan for Drug Dosing: Pharmacy Service will continue to monitor and adjust dosing as required. RANDOM LEVEL 10.3 @ 31 HOURS. START 1GM Q12H AND DRAW TROUGH PRIOR TO 4TH DOSE Follow-Up Labs Follow-Up Labs: Trough: Vancomycin Date/Time Labs Ordered Labs to be done on [date and time ordered]: 10/18 @ 1200
[2024-10-17] MEDS: Vancomycin IV 1,000 MG/200 ML BAG 200 MG IV ×3 (00:33→23:32)
[2024-10-17 02:45] VITALS: BP 126/63; PULSE 55; RESP 16; TEMP 36.6; O2SAT 96
[2024-10-17 05:01] LABS: Absolute Lymphocyte Count 1.28 X10^3/uL (0.83-4.51); Basophil# 0.02 X10^3/uL; Basophil% 0.5 % (0-1); Eosinophil# 0.11 X10^3/uL; Eosinophils% 2.7 % (0-5); Hematocrit 30.1 % (40-54); Hemoglobin 9.6 g/dL (13.0-16.5); Lymphocyte # 1.28 X10^3/ul (0.83-4.51); Lymphocyte % 31.1 % (19-41); Mean Corp Hgb Conc 31.9 g/dL (32-36); Mean Corpuscular Hgb 27.4 pg (27.0-32.0); Mean Platelet Vol. 12.3 fl (6.2-12.0); Monocyte# 0.66 X10^3/uL; Monocyte% 16.1 % (0-10); NRBC Flagged by Analyzer 0 % (0-5); Neutrophil # 1.99 X10^3/uL (2.7-7.7); Neutrophil % 48.4 % (47-70); Platelet Count 212 K/mm3 (150-450); RBC Distribution Width CV 16.1 % (11.6-14.6); RBC Distribution Width SD 50.5 fl (35.1-43.9); White Blood Count 4.1 K/mm3 (4.4-11.0)
[2024-10-17 05:28] LABS: Anion Gap 9 (5-15); BUN 16 mg/dL (4-19); BUN/Creat Ratio 17.7 RATIO (10-20); Calcium,Total 8.3 mg/dL (7.6-11.0); Carbon Dioxide 24.6 mmol/L (21.0-32.0); Chloride 106 mmol/L (98-108); Creatinine, Serum 0.88 mg/dL (0.70-1.20); EST Glomerular Filtration Rate 93 (>60); Estimated Creatinine Clearance 106.46 ml/min (50-250); Glucose 101 mg/dL (70-99); Potassium 3.9 mmol/L (3.3-5.1); Sodium Level 139 mmol/L (133-145)
[2024-10-17] MEDS: Gabapentin 100 MG Capsule 200 MG PO ×3 (05:41→21:36)
[2024-10-17 06:36] LABS: Bedside Glucose 108 mg/dL (74-106)
--- NOTE | 2024-10-17 07:24 | PN.HOSP_ITS ---
Reason for Visit Reason for Visit: Diagnoses Sepsis, unspecified organism (10/13/24) Cellulitis of right lower limb (10/13/24) Non-pressure chronic ulcer of 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 (10/13/24) Urinary tract infection, site not specified (10/13/24) Bacteremia (10/13/24) Subjective Subjective Has been allowing nursing to draw labs and administer meds (except nystatin S+S and topical agents). Feels he is never going home. Objective Data Objective Data Vital Signs: Vital Signs Temp Pulse Resp BP Pulse Ox O2 Del Method 36.6 C 55 L 16 126/63 H 96 Room Air 10/17/24 02:45 10/17/24 02:45 10/17/24 02:45 10/17/24 02:45 10/17/24 02:45 10/17/24 02:45 Oxygen Delivery Method Room Air Weight: 134.9 kg Body Mass Index (BMI) 44.0 Intake & Output: Intake and Output for Last 24 Hours 10/15/24 10/16/24 10/17/24 23:59 23:59 23:59 Intake Total 1625 / 1625 290 / 290 200 / 200 Output Total 3050 / 3050 2150 / 2570 1320 / 1320 Balance -1425 / -1425 -1860 / -2280 -1120 / -1120 Lab / Micro Data 10/17/24 04:32 10/17/24 04:32 Labs: Laboratory Results - last 24 hr 10/16/24 04:45: Differential Comment SCANNED 10/16/24 14:09: POC Glucose 93 10/16/24 16:12: POC Glucose 192 H 10/16/24 22:17: POC Glucose 150 H 10/16/24 23:07: Random Vancomycin 10.3 10/17/24 04:32: WBC 4.1 L, RBC 3.50 L, Hgb 9.6 L, Hct 30.1 L, MCV 86.0, MCH 27.4, MCHC 31.9 L, RDW Std Deviation 50.5 H, RDW Coeff of Carlito 16.1 H, Plt Count 212, MPV 12.3 H, Immature Gran % (Auto) 1.200 H, Neut % (Auto) 48.4, Lymph % (Auto) 31.1, Cass % (Auto) 16.1 H, Eos % (Auto) 2.7, Baso % (Auto) 0.5, Absolute Neuts (auto) 2.0, Absolute Lymphs (auto) 1.28, Nucleated RBC % 0, Sodium 139, Potassium 3.9, Chloride 106, Carbon Dioxide 24.6, Anion Gap 9, BUN 16, Creatinine 0.88, Estim Creat Clear Calc 106.46, Est GFR (MDRD) Non-Af 93, BUN/Creatinine Ratio 17.7, Glucose 101 H, Calcium 8.3 10/17/24 06:12: POC Glucose 108 H Micro: Microbiology 10/14/24 12:00 Wound - Leg, Right Gram Stain - Final 10/14/24 12:00 Wound - Leg, Right Wound Culture - Final Meth. resistant Staph. aureus Coag Negative Staph 10/13/24 13:15 Blood Culture (Wb) - Anticubital Left Blood Culture - Preliminary No growth in 48 hours. 10/13/24 12:40 Blood Culture (Wb) - Anticubital Left Blood Culture - Preliminary No growth in 48 hours. Radiography Diagnostic Testing: Radiology Impression Extremity Arterial Study 10/15/24 09:43 Interpretation Summary Right PERICO 1.37, normal. TBI and Doppler/PVR waveforms of the right leg normal at rest. Left PERICO 1.2, normal. TBI and Doppler/PVR waveforms of the left leg normal at rest. Ordering Physician: Jasbir Montoya Referring Physician: Kathleen Herzog Performed By: Rasheed Norman, RVT Venous Doppler Study 10/15/24 09:43 Interpretation Summary Chronic deep vein thrombosis noted left femoral vein, popliteal vein, tibioperoneal trunk vein Deep veins of the right lower extremity are patent and compressible segmentally. There is no evidence of right lower extremity deep vein thrombosis. The bilateral great saphenous veins appear patent and compressible segmentally. Ordering Physician: Jasbir Montoya Referring Physician: Mino Wang Performed By: Sheri Jones RVT Physical Exam Const alert and no apparent distress HEENT head/scalp atraumatic and moist oral mucous membranes Assessment & Plan Assessment/Plan (1) Bacteremia: PLAN: MRSA positive on 10/10 (1 of 2). Negative on 10/13. 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 Recheck BCx. ID consulted. TTE no vegatation, though concerning for endocarditis by ID. ID recommending FLORENCE. on vancomycin and CTX. (2) Non-pressure chronic ulcer of 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: PLAN: debrided by podiatry on 10/15 PLAN: Plan Chronic conditions: * Left renal mass: follow up with * HTN: amlodipine * HLP: statin * DM2: glargine. add SSI. VTE prophylaxis: not indicated already on apixaban. Charges/Coding Visit Charges Inpatient E&M: 80284 Subs Hosp L1
[2024-10-17] MEDS: Glucerna Shake 120 ML LIQUID PO ×2 (08:38→16:14)
[2024-10-17] MEDS: Cyanocobalamin 500 MCG Tablet PO (08:39)
[2024-10-17] MEDS: Potassium Chloride Oral Tablet 10 MEQ PO ×2 (08:39→16:14)
[2024-10-17] MEDS: amLODIPine 5 MG Tablet PO (08:39)
[2024-10-17] MEDS: Furosemide 40 MG Tablet PO ×2 (08:39→21:37)
[2024-10-17 08:45] VITALS: BP 135/70; PULSE 65; RESP 18; TEMP 36.6; O2SAT 97
[2024-10-17] MEDS: Ceftriaxone 2 GM in 0.9% Normal Saline (50mL MB+) 50 ML IV (09:26)
--- NOTE | 2024-10-17 09:36 | CASEMGMT ---
Social Work- SW called [facility] and left a voicemail for Meenakshi TAM, to discuss pt behavioral patterns and baseline mental health status/desire for care. SW remains available to follow. LEATHA Alonso
--- NOTE | 2024-10-17 09:56 | PCM.PN.ID ---
Physical Exam Narrative Feeling ok, no fever, some soreness from sitting in chair. No cough. Const alert and no apparent distress General Appearance: cooperative Resp normal air movement and clear to auscultation bilaterally Cardio regular rate and regular rhythm Heart Sounds: murmur GI soft to palpation, non-tender and non-distended Skin no rashes or lesions noted ID ID: Route of nutrition/ use of supplements: [] Nutritional Intake: [] IV Site: [] Cohen Catheter: [] Assessment & Plan Assessment/Plan (1) Bacteremia: PLAN: MRSA and proteus bacteremia. Concern for endocarditis given murmur and splinter hemorrhage on L index finger. Echo showed no veg. Repeat bcx pending. On vanc, ceftriaxone. VALENTIN improved, fever improved. Wound cx with MRSA and CoNS. Recommend FLORENCE; if he refuses, plan would be for 6 weeks iv abx at discharge. Will follow (2) Cellulitis of right lower limb: (3) UTI (urinary tract infection): (4) Sepsis:
[2024-10-17 11:49] LABS: Bedside Glucose 133 mg/dL (74-106)
[2024-10-17 14:08] VITALS: BP 123/53; PULSE 56; RESP 18; TEMP 36.6; O2SAT 96
--- NOTE | 2024-10-17 14:57 | ECHOTEE_ITS ---
Reason For Study Reason For Study: bacteremia Medication FLORENCE probe 6VT-D (SN [id number]) passed with minimal difficulty. No complications were noted. Cetacaine Topical Jewett given X3 orally. Versed 1 mg given slow IVP. Fentanyl 50 mcg given slow IVP. Left Ventricle Normal LV size. The left ventricular ejection fraction is 60 %. No regional wall motion abnormalities noted. Right Ventricle Normal RV size. Normal systolic function. Atria Bubble contrast study negative for right to left interatrial shunt. The left atrium is mildly enlarged. No thrombus is detected in the left atrial appendage. Normal right atrium. Mitral Valve Normal mitral valve. Tricuspid Valve Normal tricuspid valve. Aortic Valve Normal prosthetic aortic valve. Pulmonic Valve Normal pulmonic valve. Vessels Normal aortic root. The pulmonary artery is normal size. Pericardium No pericardial effusion. ECHO/Echo Transesophageal (FLORENCE) Interpretation Summary No cardiac source of emboli noted. There is no evidence of a mass or vegetation . This does not rule out endocarditis. Normal LV size. The left ventricular ejection fraction is 60 %. Normal prosthetic aortic valve. Ordering Physician: Vivek Gates Referring Physician: Kathleen Herzog Performed By: Carmella Gonsalez, LOC, RVT
[2024-10-17] MEDS: Insulin Lispro 100 UNIT/ML INSULN.PEN SC (16:14)
[2024-10-17 16:18] LABS: Bedside Glucose 160 mg/dL (74-106)
[2024-10-17] MEDS: Acetaminophen 325 MG Tablet 650 MG PO (18:33)
[2024-10-17 20:10] VITALS: BP 131/62; PULSE 54; RESP 18; TEMP 36.6; O2SAT 97
[2024-10-17] MEDS: Atorvastatin Calcium 20 MG Tablet PO (21:36)
[2024-10-17] MEDS: MELATONIN 3 MG TABLET 6 MG PO (21:36)
[2024-10-17] MEDS: LURASIDONE HCL 40 MG TABLET PO (21:36)
[2024-10-17] MEDS: Donepezil HCl 5 MG Tablet PO (21:36)
[2024-10-17] MEDS: Tamsulosin HCl 0.4 MG Capsule PO (21:37)
[2024-10-17] MEDS: Insulin Glargine-YFGN 100 UNIT/ML Pen 18 UNIT SC (21:37)
[2024-10-17] MEDS: traZODone 100 MG Tablet PO (21:37)
[2024-10-17] MEDS: oxyCODONE 5 MG Tablet PO (21:43)
[2024-10-17 22:02] LABS: Bedside Glucose 119 mg/dL (74-106)
[2024-10-18] VITALS (10 sets, daily range): BP systolic 113–146; BP diastolic 50–72; PULSE 50–87; RESP 16–18; TEMP 36.7–37.1; O2SAT 92–100
[2024-10-18] MEDS: Gabapentin 100 MG Capsule 200 MG PO ×2 (05:51→14:08)
[2024-10-18 06:19] LABS: Bedside Glucose 121 mg/dL (74-106)
--- NOTE | 2024-10-18 07:12 | PCM.PN.HOSP ---
Reason for Visit Reason for Visit: Diagnoses Sepsis, unspecified organism (10/13/24) Cellulitis of right lower limb (10/13/24) Non-pressure chronic ulcer of 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 (10/13/24) Urinary tract infection, site not specified (10/13/24) Bacteremia (10/13/24) Subjective Subjective Groggy post FLORENCE. Objective Data Objective Data Vital Signs: Vital Signs Temp Pulse Resp BP Pulse Ox O2 Del Method 36.7 C 50 L 16 142/68 H 97 Room Air 10/18/24 02:10 10/18/24 02:10 10/18/24 02:10 10/18/24 02:10 10/18/24 02:10 10/18/24 02:10 Oxygen Delivery Method Room Air Weight: 134.9 kg Body Mass Index (BMI) 44.0 Intake & Output: Intake and Output for Last 24 Hours 10/16/24 10/17/24 10/18/24 23:59 23:59 23:59 Intake Total 290 / 290 570 / 570 200 / 200 Output Total 2150 / 2570 2870 / 3470 1800 / 1800 Balance -1860 / -2280 -2300 / -2900 -1600 / -1600 Lab / Micro Data 10/18/24 07:04 10/18/24 07:04 Labs: Laboratory Results - last 24 hr 10/17/24 11:26: POC Glucose 133 H 10/17/24 15:58: POC Glucose 160 H 10/17/24 21:35: POC Glucose 119 H 10/18/24 05:55: POC Glucose 121 H Micro: Microbiology 10/14/24 12:00 Wound - Leg, Right Gram Stain - Final 10/14/24 12:00 Wound - Leg, Right Wound Culture - Final Meth. resistant Staph. aureus Coag Negative Staph 10/13/24 13:15 Blood Culture (Wb) - Anticubital Left Blood Culture - Preliminary No growth in 48 hours. 10/13/24 12:40 Blood Culture (Wb) - Anticubital Left Blood Culture - Preliminary No growth in 48 hours. Physical Exam Const alert and no apparent distress Constitutional Narrative: groggy. afebrile. HEENT head/scalp atraumatic and moist oral mucous membranes Resp normal respiratory effort, no retractions, no use of accessory muscles and clear to auscultation bilaterally Cardio regular rate, regular rhythm, S1 normal heart sound and S2 normal heart sound GI normal to inspection, nondistended, normoactive bowel sounds, soft to palpation, non-tender and non-distended Extremity normal to inspection, full ROM and no clubbing, cyanosis or edema Neuro Sensorium / Orientation: awake and alert Assessment & Plan Assessment/Plan (1) Bacteremia: PLAN: MRSA positive on 10/10 (1 of 2). Negative on 10/13. 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 Recheck BCx on 10/16 negative. ID consulted. TTE no vegatation, though concerning for endocarditis by ID. FLORENCE shows no source of emboli. No vegetation. on vancomycin and CTX. (2) Non-pressure chronic ulcer of 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: PLAN: debrided by podiatry on 10/15 PLAN: Plan Chronic conditions: Left renal mass: follow up with HTN: amlodipine HLP: statin DM2: glargine. add SSI. VTE prophylaxis: not indicated already on apixaban. Charges/Coding Visit Charges Inpatient E&M: 26932 Subs Hosp L2
[2024-10-18 07:43] LABS: Absolute Lymphocyte Count 0.95 X10^3/uL (0.83-4.51); Absolute Neutrophil Count 2.5 X10^3/uL (2.0-7.7); Basophil# 0.02 X10^3/uL; Basophil% 0.5 % (0-1); Eosinophil# 0.07 X10^3/uL; Eosinophils% 1.7 % (0-5); Hematocrit 32.2 % (40-54); Hemoglobin 10.3 g/dL (13.0-16.5); Lymphocyte # 0.95 X10^3/ul (0.83-4.51); Lymphocyte % 22.8 % (19-41); Mean Corpuscular Hgb 27.7 pg (27.0-32.0); Mean Corpuscular Volume 86.6 fL (80-94); Mean Platelet Vol. 12.2 fl (6.2-12.0); Monocyte# 0.57 X10^3/uL; Monocyte% 13.7 % (0-10); NRBC Flagged by Analyzer 0 % (0-5); Neutrophil # 2.52 X10^3/uL (2.7-7.7); Neutrophil % 60.6 % (47-70); Platelet Count 214 K/mm3 (150-450); RBC Distribution Width CV 15.9 % (11.6-14.6); RBC Distribution Width SD 50.1 fl (35.1-43.9); Red Blood Count 3.72 M/mm3 (4.6-6.2); White Blood Count 4.2 K/mm3 (4.4-11.0)
[2024-10-18 08:08] LABS: Anion Gap 8 (5-15); BUN 14 mg/dL (4-19); BUN/Creat Ratio 15.5 RATIO (10-20); Carbon Dioxide 25.9 mmol/L (21.0-32.0); Chloride 102 mmol/L (98-108); Creatinine, Serum 0.92 mg/dL (0.70-1.20); EST Glomerular Filtration Rate 90 (>60); Estimated Creatinine Clearance 101.83 ml/min (50-250); Glucose 104 mg/dL (70-99); Potassium 4.1 mmol/L (3.3-5.1); Sodium Level 136 mmol/L (133-145)
[2024-10-18] MEDS: 0.9% Saline Lock 10 ML Syringe IV (08:10)
--- NOTE | 2024-10-18 09:35 | NURSING ---
per FLORENCE post procedure: pt NPO. can drink at 10:03 and then eat at 12:03
[2024-10-18] MEDS: Ondansetron 4 MG/2 ML Vial IV (09:42)
[2024-10-18] MEDS: Ceftriaxone 2 GM in 0.9% Normal Saline (50mL MB+) 50 ML IV (09:43)
[2024-10-18 12:08] LABS: Bedside Glucose 92 mg/dL (74-106)
--- NOTE | 2024-10-18 12:57 | NURSING ---
vanc level pending
--- NOTE | 2024-10-18 13:14 | PCM.PN.ID ---
Physical Exam Narrative Feeling ok, no fever, had FLORENCE. Const alert and no apparent distress General Appearance: cooperative Resp normal air movement and clear to auscultation bilaterally Cardio regular rate and regular rhythm GI soft to palpation, non-tender and non-distended Skin no rashes or lesions noted ID ID: Route of nutrition/ use of supplements: [] Nutritional Intake: [] IV Site: [] Cohen Catheter: [] Assessment & Plan Assessment/Plan (1) Bacteremia: PLAN: MRSA and proteus bacteremia. Concern for endocarditis given murmur and splinter hemorrhage on L index finger. Echo showed no veg. Repeat bcx neg since 10/13/24. On vanc, ceftriaxone. VALENTIN improved, fever improved. Wound cx with MRSA and CoNS. FLORENCE showed no veg. Will order picc and iv vanc with stop date 11/10/24 with weekly labs. Ok to stop ceftriaxone tomorrow. Will follow prn, d/w correctional counselor/case manager and wrote rx (2) Cellulitis of right lower limb: (3) UTI (urinary tract infection): (4) Sepsis:
[2024-10-18 13:20] LABS: Vancomycin, Trough Level 14.2 ug/mL (5.0-15.0)
--- NOTE | 2024-10-18 13:31 | PCM.RX.CS ---
Consult Antibiotic Management Pharmacy has been consulted to manage selected antibiotic: Vancomycin Type of Intervention Type of Consult: Follow-up Suspected Infection Suspected Infection: Bacteremia Prior Doses of Antibiotics Prior Doses of Antibiotics Received/Current Regimen: current dose is vanc 1000mg IV q12h Labs Labs: Sodium 136 mmol/L (133-145) 10/18/24 07:04 Potassium 4.1 mmol/L (3.3-5.1) 10/18/24 07:04 Chloride 102 mmol/L (98-108) 10/18/24 07:04 Carbon Dioxide 25.9 mmol/L (21.0-32.0) 10/18/24 07:04 Anion Gap 8 (5-15) 10/18/24 07:04 BUN 14 mg/dL (4-19) 10/18/24 07:04 Creatinine 0.92 mg/dL (0.70-1.20) 10/18/24 07:04 Est GFR (MDRD) Non-Af 90 (>60) 10/18/24 07:04 BUN/Creatinine Ratio 15.5 RATIO (10-20) 10/18/24 07:04 Glucose 104 mg/dL (70-99) H 10/18/24 07:04 Vancomycin Trough 14.2 ug/mL (5.0-15.0) 10/18/24 11:58 Random Vancomycin 10.3 ug/mL (0.0-15.0) 10/16/24 23:07 Microbiology Microbiology: Microbiology 10/14/24 12:00 Wound - Leg, Right Gram Stain - Final 10/14/24 12:00 Wound - Leg, Right Wound Culture - Final Meth. resistant Staph. aureus Coag Negative Staph 10/13/24 13:15 Blood Culture (Wb) - Anticubital Left Blood Culture - Preliminary No growth in 48 hours. 10/13/24 12:40 Blood Culture (Wb) - Anticubital Left Blood Culture - Preliminary No growth in 48 hours. Dosing Weight Weight used for dosin.9 kg Estimated Creatinine Clearance Estimated Creatinine Clearance: 102ml/min Goal Trough Goal Trough: 15-20 mcg/mL Pharmacy Plan for Drug Dosing Pharmacy Plan for Drug Dosing: The vanc trough drawn at 11:58 today (approx 12.5 hrs after the previous dose) was 14.2 mcg/ml. The previous dose was given about an hour earlier than scheduled so the trough would have been a little higher if drawn closer to to 11.5 hour rusty. Will leave patient on same dose and repeat a trough in 2 days per protocol. Pharmacy Service will continue to monitor and adjust dosing as required. Follow-Up Labs Follow-Up Labs: Trough: Vancomycin Date/Time Labs Ordered Labs to be done on [date and time ordered]: 10/20/24 12:00
--- NOTE | 2024-10-18 13:50 | CASEMGMT ---
Discharge Planning Updates sent to GABRIELLA. Taisha Schaefer DC Planning Asst.
--- NOTE | 2024-10-18 14:04 | CASEMGMT ---
Social Work Per physician, pt will required IV ATB at discharge. Precert submitted with insurance for readmission to [facility]. Clinicals faxed to insurance. DC fast food assistant restaurant manager to update facility of dc plan. Plan: Return to [facility], pending precert LEATHA Mccann
[2024-10-18] MEDS: Vancomycin IV 1,000 MG/200 ML BAG 200 MG IV (14:13)
--- NOTE | 2024-10-18 14:17 | TREXTCAR_ITS ---
Diet Diet Order/Speech Therapy: 10/16/24 13:45 Diet: Regular - General Type of Dietary Supplement:: Glucerna Shake Diet Comments: 120cc Routine Orders/Code Status Routine Lab Work: BMP Code Status: DNRCC-A (no intubation) DC O2, CPAP, BIPAP needs Home O2 Discharge instructions: No Wound(s) Right outer calf: Wound Type: Stasis Ulcer Dressing Change: AntiMicrobial (Aquacel AG, etc) Therapies Weight Bearing: Full weight bearing Physical Therapy: Eval and Treat Occupational Therapy: Eval and Treat Problem/Diagnosis (1) Bacteremia: Status: Acute Code(s): R78.81 - Bacteremia Plan: MRSA positive on 10/10 (1 of 2). Negative on 10/13. 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 Recheck BCx on 10/16 negative. ID consulted. TTE no vegatation, though concerning for endocarditis by ID. FLORENCE shows no source of emboli. No vegetation. on vancomycin and CTX. (2) Cellulitis of right lower limb: Status: Acute Code(s): L03.115 - Cellulitis of right lower limb (3) UTI (urinary tract infection): Status: Resolved Code(s): N39.0 - Urinary tract infection, site not specified (4) Sepsis: Status: Resolved Code(s): A41.9 - Sepsis, unspecified organism Plan Chronic conditions: * Left renal mass: follow up with * HTN: amlodipine * HLP: statin * DM2: glargine. add SSI. VTE prophylaxis: not indicated already on apixaban. Allergies/Procedures Done in Hospital Allergies ibuprofen (From Nuprin) Allergy (Verified 10/13/24 11:49) Unknown Procedures: PICC line placement, Transthoracic Echo and - (FLORENCE) Type of Care/Length of Stay Estimated LOS: Convalescent Care Less Than 30 days Type of Care Needed: Skilled Rehab Potential: Good Prognosis: Good Additional Orders/Day of Discharge Day of Discharge: 10/18/24 Dietary and Speech Recommendations Dietitian Recommendations/Changes: Will liberalize diet to Regular until po intake consistently improves and then resume therapeutic diet of 1800 elver Consistent CHO/ Cardiac diet to help w/ medical conditions Continue glucerna shake w/ medpass for increased nutrition if consumed Discharge Plan Admission Admit Date/Time: 10/13/24 13:59 Primary Reason for Your Visit: Bacteremia Attending Provider: Vivek Gates Primary Care Provider: Kathleen Herzog Consulting Providers: Monika Garcias; Jasbir Montoya; Channing Barnard; Colby May Discharge Orders/Prescriptions Prescriptions: New vancomycin in dextrose 5 % 1 gram/200 mL Piggyback 1,000 mg IV Q12H 21 Days Qty: 8400 0RF Rx Instructions: stop date 11/10/24. Dx: MRSA bacteremia. Weekly bmp, cbc, and vanc trough. Fax to [phone]. Routine picc care per protocol. Continued tamsulosin 0.4 mg capsule 0.4 mg PO QHS aspirin 81 MG tablet,delayed release (DR/EC) 81 mg PO DAILY atorvastatin 20 mg tablet 20 mg PO QHS amlodipine 5 mg tablet 5 mg PO DAILY Eliquis 5 mg tablet 5 mg PO BID melatonin 3 mg tablet 6 mg PO QHS acetaminophen [Tylenol] 325 mg tablet 650 mg PO Q4H PRN (Reason: pain) insulin glargine [Lantus Solostar U-100 Insulin] 100 unit/mL (3 mL) insulin pen 23 unit subcut QHS Rx Instructions: sliding scale cyanocobalamin (vitamin B-12) 1,000 mcg capsule 500 mcg PO DAILY donepezil 5 mg tablet 5 mg PO QHS gabapentin 100 mg capsule 200 mg PO TID insulin lispro [Humalog KwikPen Insulin] 100 unit/mL insulin pen See Protocol subcut TID Protocol: 6. Sliding Scale Insulin Custom Condition: 151-200 Dose/Route: 2 UNITS Condition: 201-250 Dose/Route: 4 UNITS Condition: 251-300 Dose/Route: 6 UNITS Condition: 301-350 Dose/Route: 8 UNITS Condition: 351-400 Dose/Route: 10 Protocol Text: Custom Sliding Scale Rx Instructions: sliding scale lurasidone 40 mg tablet 40 mg PO QHS Rx Instructions: must administer with food (at least 350 calories) potassium chloride 10 mEq capsule, extended release 10 meq PO BID torsemide 20 mg tablet 20 mg PO BID lactulose 20 gram/30 mL solution 30 ml PO DAILY budesonide-formoterol [Symbicort] 160-4.5 mcg/actuation HFA aerosol inhaler 1 puff inhalation DAILY trazodone 100 mg tablet 100 mg PO QHS Discontinued cefpodoxime 100 mg tablet 100 mg PO BID Qty: 20 0RF Rx Instructions: must administer with a meal/food Referrals / Follow Up: Jasbir Montoya DPM [Med Staff - Active Staff] - Kathleen Herzog MD [Primary Care Provider] - Within 2 Weeks Disposition Disposition (needs filled in before D/C Order can be placed): [facility]
[2024-10-18] MEDS: Acetaminophen 325 MG Tablet 650 MG PO (14:18)
[2024-10-18] MEDS: oxyCODONE 5 MG Tablet PO (14:18)
--- NOTE | 2024-10-18 14:23 | DS.PCM_ITS ---
Providers Date of Admission: 10/13/24 Primary Care Physician: Dr. Kathleen Herzog MD Consultations 10/13/24 15:13 Consult: Infectious Disease Routine Consulting Provider: Channing Barnard Reason for Consult: MRSA bacteremia EMERGENT Consult: No MD Notified: Yes Date Notified: 10/16/24 Time Notified: 06:03 Method of Notification: Text 10/13/24 16:15 Consult: Onc/Wound/hand stitcher Routine Comment: Reason for Consult:: chronic wound to right outer calf 10/14/24 13:01 Consult: Podiatry Routine Consulting Provider: Jasbir Montoya Reason for Consult: RT. lateral superficial ulcer, 8 cm, MRSA Bacteremia EMERGENT Consult: No Notified: Yes Date Notified: 10/14/24 Time Notified: 13:01 Method of Notification: Verbal 10/14/24 22:52 Consult: Onc/Wound/hand stitcher Routine Comment: Reason for Consult:: RLE chron ulcer Reason For Visit: MRSA BACTEREMIA Diagnosis Discharge Diagnosis (1) Bacteremia: Status: Acute Code(s): R78.81 - Bacteremia Plan: MRSA positive on 10/10 (1 of 2). Negative on 10/13. 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 aureus and IMMUNOHEMATOLOGIST. Recheck BCx on 10/16 negative. ID consulted. TTE no vegatation, though concerning for endocarditis by ID. FLORENCE shows no source of emboli. No vegetation. on vancomycin and CTX. (2) Cellulitis of right lower limb: Status: Acute Code(s): L03.115 - Cellulitis of right lower limb (3) UTI (urinary tract infection): Status: Resolved Code(s): N39.0 - Urinary tract infection, site not specified (4) Sepsis: Status: Resolved Code(s): A41.9 - Sepsis, unspecified organism Plan Chronic conditions: * Left renal mass: follow up with * HTN: amlodipine * HLP: statin * DM2: glargine. add SSI. VTE prophylaxis: not indicated already on apixaban. Medications at Discharge Home Medications aspirin 81 mg tablet,delayed release 81 mg PO DAILY AFIB 03/17/19 amlodipine 5 mg tablet 5 mg PO DAILY AFIB 10/28/23 apixaban 5 mg tablet (Eliquis) 5 mg PO BID AFIB 10/28/23 atorvastatin 20 mg tablet 20 mg PO QHS HYPERLIPIDEMIA 10/28/23 melatonin 3 mg tablet 6 mg PO QHS INSOMNIA 10/28/23 tamsulosin 0.4 mg capsule 0.4 mg PO QHS PROSTATIC HYPERPLASIA 12/22/23 acetaminophen 325 mg tablet (Tylenol) 650 mg PO Q4H PRN pain 06/01/24 cyanocobalamin (vitamin B-12) 1,000 mcg capsule 500 mcg PO DAILY VITAMIN 06/01/24 insulin glargine 100 unit/mL (3 mL) subcutaneous pen (Lantus Solostar U-100 Insulin) 23 unit subcut QHS DIABETIC 06/01/24 donepezil 5 mg tablet 5 mg PO QHS MEMORY 08/16/24 gabapentin 100 mg capsule 200 mg PO TID NEUROPATHY 08/16/24 insulin lispro 100 unit/mL subcutaneous pen (Humalog KwikPen (U-100) Insulin) See Protocol subcut TID DIABETIC 08/16/24 lurasidone 40 mg tablet 40 mg PO QHS MOOD 08/16/24 potassium chloride 10 mEq capsule,extended release 10 meq PO BID POTASSIUM 08/16/24 torsemide 20 mg tablet 20 mg PO BID HEART 08/16/24 budesonide-formoterol HFA 160 mcg-4.5 mcg/actuation aerosol inhaler (Symbicort) 1 puff inhalation DAILY COPD 09/16/24 lactulose 20 gram/30 mL oral solution 30 ml PO DAILY CONSTIPATION 09/16/24 trazodone 100 mg tablet 100 mg PO QHS insomnia 09/16/24 vancomycin 1 gram/200 mL in dextrose 5 % intravenous piggyback 1,000 mg IV Q12H 21 days #8,400 mL 10/18/24 Hospital Course Operations None Procedures Transesophageal Echo, Transthoracic echo and - (PICC) Summary of Care Provided Minutes Spent on Discharge: 35 Hospital Course: Patient presented with bacteremia. Was found to have MRSA and cultures were positive 1st and 5th but were negative on the fourth and the seventh. TTE and FLORENCE were negative. Patient being treated empirically for endocarditis as there is some findings concerning for endocarditis. Patient will be on IV vancomycin. PICC line to be placed. Weight / BMI Weight Weight: 134.9 kg Body Mass Index (BMI) 44.0 ABG / Lab / Microbiology Data 10/18/24 07:04 10/18/24 07:04 Laboratory: Laboratory Results - last 24 hr 10/17/24 15:58: POC Glucose 160 H 10/17/24 21:35: POC Glucose 119 H 10/18/24 05:55: POC Glucose 121 H 10/18/24 07:04: WBC 4.2 L, RBC 3.72 L, Hgb 10.3 L, Hct 32.2 L, MCV 86.6, MCH 27.7, MCHC 32.0, RDW Std Deviation 50.1 H, RDW Coeff of Carlito 15.9 H, Plt Count 214, MPV 12.2 H, Immature Gran % (Auto) 0.700, Neut % (Auto) 60.6, Lymph % (Auto) 22.8, [place] % (Auto) 13.7 H, Eos % (Auto) 1.7, Baso % (Auto) 0.5, Absolute Neuts (auto) 2.5, Absolute Lymphs (auto) 0.95, Nucleated RBC % 0, Sodium 136, Potassium 4.1, Chloride 102, Carbon Dioxide 25.9, Anion Gap 8, BUN 14, Creatinine 0.92, Estim Creat Clear Calc 101.83, Est GFR (MDRD) Non-Af 90, BUN/Creatinine Ratio 15.5, Glucose 104 H, Calcium 9.0 10/18/24 11:20: POC Glucose 92 10/18/24 11:58: Vancomycin Trough 14.2 Microbiology: Microbiology 10/13/24 12:40 Blood Culture (Wb) - Anticubital Left Blood Culture - Final No growth in 5 days. 10/14/24 12:00 Wound - Leg, Right Gram Stain - Final 10/14/24 12:00 Wound - Leg, Right Wound Culture - Final Meth. resistant Staph. aureus Coag Negative Staph 10/13/24 13:15 Blood Culture (Wb) - Anticubital Left Blood Culture - Preliminary No growth in 48 hours. Radiography Diagnostic Testing: Radiology Impression Transesophageal Echocardiogram 10/17/24 14:57 Interpretation Summary No cardiac source of emboli noted. There is no evidence of a mass or vegetation. This does not rule out endocarditis. Normal LV size. The left ventricular ejection fraction is 60 %. Normal prosthetic aortic valve. Ordering Physician: Vivek Gates Referring Physician: Kathleen Herzog Performed By: Carmella Gonsalez, LOC, RVT D/C Instructions DC O2, CPAP, BIPAP Needs Home O2 Discharge instructions: No Meaningful Use Info Meaningful Use Meaningful Use Diagnoses (Choose all that apply): None applicable Ischemic Stroke Statin Dosing Therapy Reference: STATIN DOSE THERAPY REFERENCE: * Patients > 75 years receive moderate or high dose statin therapy. * Patients 75 years or YOUNGER should receive HIGH intensity statin dose unless contraindicated. You will be required to document reason for non-treatment if statin daily dose does not meet guidelines. HIGH DOSE STATIN THERAPY DAILY Atorvastatin > than or = to 40 mg Rosuvastatin > than or = to 20 mg Amlodipine + Atorvastatin > than or = to 2.5/40 mg Ezetimibe + Simvastatin 10/80 mg Simvastatin 80mg Discharge Plan Admission Admit Date/Time: 10/13/24 13:59 Primary Reason for Your Visit: Bacteremia Attending Provider: Vivek Gates Primary Care Provider: Kathleen Herzog Consulting Providers: Monika Garcias; Jasbir Montoya; Channing Barnard; Colby May Discharge Orders/Prescriptions Prescriptions: New vancomycin in dextrose 5 % 1 gram/200 mL Piggyback 1,000 mg IV Q12H 21 Days Qty: 8400 0RF Rx Instructions: stop date 11/10/24. Dx: MRSA bacteremia. Weekly bmp, cbc, and vanc trough. Fax to [phone]. Routine picc care per protocol. Continued tamsulosin 0.4 mg capsule 0.4 mg PO QHS aspirin 81 MG tablet,delayed release (DR/EC) 81 mg PO DAILY atorvastatin 20 mg tablet 20 mg PO QHS amlodipine 5 mg tablet 5 mg PO DAILY Eliquis 5 mg tablet 5 mg PO BID melatonin 3 mg tablet 6 mg PO QHS acetaminophen [Tylenol] 325 mg tablet 650 mg PO Q4H PRN (Reason: pain) insulin glargine [Lantus Solostar U-100 Insulin] 100 unit/mL (3 mL) insulin pen 23 unit subcut QHS Rx Instructions: sliding scale cyanocobalamin (vitamin B-12) 1,000 mcg capsule 500 mcg PO DAILY donepezil 5 mg tablet 5 mg PO QHS gabapentin 100 mg capsule 200 mg PO TID insulin lispro [Humalog KwikPen Insulin] 100 unit/mL insulin pen See Protocol subcut TID Protocol: 6. Sliding Scale Insulin Custom Condition: 151-200 Dose/Route: 2 UNITS Condition: 201-250 Dose/Route: 4 UNITS Condition: 251-300 Dose/Route: 6 UNITS Condition: 301-350 Dose/Route: 8 UNITS Condition: 351-400 Dose/Route: 10 Protocol Text: Custom Sliding Scale Rx Instructions: sliding scale lurasidone 40 mg tablet 40 mg PO QHS Rx Instructions: must administer with food (at least 350 calories) potassium chloride 10 mEq capsule, extended release 10 meq PO BID torsemide 20 mg tablet 20 mg PO BID lactulose 20 gram/30 mL solution 30 ml PO DAILY budesonide-formoterol [Symbicort] 160-4.5 mcg/actuation HFA aerosol inhaler 1 puff inhalation DAILY trazodone 100 mg tablet 100 mg PO QHS Discontinued cefpodoxime 100 mg tablet 100 mg PO BID Qty: 20 0RF Rx Instructions: must administer with a meal/food Referrals / Follow Up: Jasbir Montoya DPM [Med Staff - Active Staff] - Kathleen Herzog MD [Primary Care Provider] - Within 2 Weeks Disposition Disposition (needs filled in before D/C Order can be placed): Alf Facility Charges/Coding Visit Charges Inpatient E&M: 47167 Disch Hosp >30min
--- NOTE | 2024-10-18 16:13 | CASEMGMT ---
Social Work SW spoke with Joaquin at [facility]. Precert has been approved for return to [facility]. Precert good 10/18-10/20 with approval number [id number]. Physician notified and plans to discharge today. DC retail assistant store manager updated and to complete dc. Disposition: [facility], skilled level of care LEATHA Mccann
--- NOTE | 2024-10-18 16:29 | CASEMGMT ---
Discharge Planning Discharge orders and transport time sent to . Physicians will transport pt by wheelchair at 6:30p. Nursing, SW, pt, and his son/HC POA updated. Med list not completed so green sheet was placed on chart. Taisha Schaefer DC Planning Asst.
--- NOTE | 2024-10-18 16:36 | PHA.DC.MR.R ---
Pharmacy [facility] Reconciliation Pharmacy Service has performed discharge medication reconciliation for this patient. The patient's discharge medication list was reviewed for discrepancies and discrepancies were resolved. Medications at Discharge Home Medications aspirin 81 mg tablet,delayed release 81 mg PO DAILY AFIB 03/17/19 amlodipine 5 mg tablet 5 mg PO DAILY AFIB 10/28/23 apixaban 5 mg tablet (Eliquis) 5 mg PO BID AFIB 10/28/23 atorvastatin 20 mg tablet 20 mg PO QHS HYPERLIPIDEMIA 10/28/23 melatonin 3 mg tablet 6 mg PO QHS INSOMNIA 10/28/23 tamsulosin 0.4 mg capsule 0.4 mg PO QHS PROSTATIC HYPERPLASIA 12/22/23 acetaminophen 325 mg tablet (Tylenol) 650 mg PO Q4H PRN pain 06/01/24 cyanocobalamin (vitamin B-12) 1,000 mcg capsule 500 mcg PO DAILY VITAMIN 06/01/24 insulin glargine 100 unit/mL (3 mL) subcutaneous pen (Lantus Solostar U-100 Insulin) 23 unit subcut QHS DIABETIC 06/01/24 donepezil 5 mg tablet 5 mg PO QHS MEMORY 08/16/24 gabapentin 100 mg capsule 200 mg PO TID NEUROPATHY 08/16/24 insulin lispro 100 unit/mL subcutaneous pen (Humalog KwikPen (U-100) Insulin) See Protocol subcut TID DIABETIC 08/16/24 lurasidone 40 mg tablet 40 mg PO QHS MOOD 08/16/24 potassium chloride 10 mEq capsule,extended release 10 meq PO BID POTASSIUM 08/16/24 torsemide 20 mg tablet 20 mg PO BID HEART 08/16/24 budesonide-formoterol HFA 160 mcg-4.5 mcg/actuation aerosol inhaler (Symbicort) 1 puff inhalation DAILY COPD 09/16/24 lactulose 20 gram/30 mL oral solution 30 ml PO DAILY CONSTIPATION 09/16/24 trazodone 100 mg tablet 100 mg PO QHS insomnia 09/16/24 vancomycin 1 gram/200 mL in dextrose 5 % intravenous piggyback 1,000 mg IV Q12H 21 days #8,400 mL 10/18/24
[2024-10-18 16:41] LABS: Bedside Glucose 155 mg/dL (74-106)
[2024-10-18 21:26] LABS: Bedside Glucose 146 mg/dL (74-106)
== END 2024-10-18 20:40 | disposition skilled nursing facility (03) | DRG 853 ==
LOC: ED 14:05 → MS3 14:12
PROVIDERS: Internal Medicine; Admitting Provider Student in an Organized Health Care Education/Training Program; Emergency Provider Emergency Medicine; PCP Internal Medicine
DX: A41.01 Sepsis due to Methicillin susceptible Staphylococcus aureus (principal); I33.0 Acute and subacute infective endocarditis; D61.818 Other pancytopenia; L97.912 Non-pressure chronic ulcer of unspecified part of right lower leg with fat layer exposed; Z68.41 Body mass index [BMI] 40.0-44.9, adult; F03.93 Unspecified dementia, unspecified severity, with mood disturbance; F03.94 Unspecified dementia, unspecified severity, with anxiety; N17.9 Acute kidney failure, unspecified; N13.8 Other obstructive and reflux uropathy; N39.0 Urinary tract infection, site not specified; L03.115 Cellulitis of right lower limb; I83.018 Varicose veins of right lower extremity with ulcer other part of lower leg; Z66 Do not resuscitate; E11.628 Type 2 diabetes mellitus with other skin complications; J44.9 Chronic obstructive pulmonary disease, unspecified; I10 Essential (primary) hypertension; I48.91 Unspecified atrial fibrillation; E11.42 Type 2 diabetes mellitus with diabetic polyneuropathy; E11.51 Type 2 diabetes mellitus with diabetic peripheral angiopathy without gangrene; E66.01 Morbid (severe) obesity due to excess calories; Z79.4 Long term (current) use of insulin; I25.2 Old myocardial infarction; E78.5 Hyperlipidemia, unspecified; M54.50 Low back pain, unspecified; S60.451A Superficial foreign body of left index finger, initial encounter; I83.93 Asymptomatic varicose veins of bilateral lower extremities; Z95.2 Presence of prosthetic heart valve; X58.XXXA Exposure to other specified factors, initial encounter; Z86.14 Personal history of Methicillin resistant Staphylococcus aureus infection; N40.1 Benign prostatic hyperplasia with lower urinary tract symptoms; N28.89 Other specified disorders of kidney and ureter; G89.29 Other chronic pain; Z96.0 Presence of urogenital implants; Z53.20 Procedure and treatment not carried out because of patient's decision for unspecified reasons; Z79.01 Long term (current) use of anticoagulants; Z79.82 Long term (current) use of aspirin; Z90.49 Acquired absence of other specified parts of digestive tract; Z86.711 Personal history of pulmonary embolism; Z86.718 Personal history of other venous thrombosis and embolism; Z79.899 Other long term (current) drug therapy; Z87.891 Personal history of nicotine dependence
CPT/HCPCS: 36415; 36569; 80048; 80053; 80202; 82962; 83605; 85025; 85610; 85730; 87040; 87070; 87077; 87186; 87205; 93306; 93312; 93320; 93325; 93923; 93970; 97116; 97162; 97166; 97530; 97535; 97802; 99285; Q9957; A4216; C8929; J0696; J2405

== ENCOUNTER 2024-11-08 09:45 | Outpatient (RCR) | payer MEDICARE, SELFPAY ==
[2024-10-10 00:55] VITALS: BP 165/72; PULSE 58; RESP 16; TEMP 36.7; BMI 44.6
[2024-10-25 13:10] VITALS: BP 118/66; PULSE 69; RESP 16; TEMP 36.6; BMI 44.6
--- NOTE | 2024-10-25 14:05 | PN.PCM_ITS ---
History of Present Illness Date of Service: 10/25/24 Chief Complaint: Right buttock ulceration History of Wound: Patient is 69-year-old male chronic ulceration to the lateral right leg stable with no sign of infection. Progress of Wound: Stable full-thickness wound to the lateral right lower extremity stable no sign of infection. Subjective Subjective Mr. Alvarez is a 69-year-old diabetic male presenting back to the wound care center today for follow-up evaluation of full-thickness wound to the lateral right leg. Patient was just recently admitted to the hospital for concerns of her bacteremia. It was found, that the patient had MRSA and cultures were positive and but were negative on the and . FLORENCE and TTE were negative. Patient was being treated empirically for endocarditis and there is some findings concerning for endocarditis per studies in the hospital. Patient will be getting PICC line antibiotics vancomycin over the course of next 4 to 6 weeks per infectious disease recommendation. Overall he has been getting dressing changes to the right lower extremity full-thickness wound. Patient also had a recent stay at [facility] yesterday due to aggravation at the residential facility. He was discharged and is presenting today for further follow-up. He denies trauma. Denies constitutional symptoms. No other pedal complaints at this time. Objective Data Objective Data Vital Signs: Vital Signs Temp Pulse Resp BP O2 Del Method 97.9 F 69 16 118/66 Room Air 10/25/24 13:10 10/25/24 13:10 10/25/24 13:10 10/25/24 13:10 10/25/24 13:10 Oxygen Delivery Method Room Air Weight: 157.85 kg Body Mass Index (BMI) 44.6 Physical Exam Narrative Vascular: DP and PT pulses are palpable to the right lower extremity. Nonpitt ing edema appreciated to the right lower extremity. Skin temperature gradient is warm to warm from proximal ankles to distal digit. No focal increase appreciated. Evidence of varicosities appreciated left lower extremity. Neurological: Light touch intact. Patient response to painful stimuli. Protective sensation is diminished. Dermatological: Full-thickness ulceration to the lateral aspect of the right leg measuring 11.5 x 3.0 x 0.1 cm wound base is granular. No malodor or probe to bone. No sign of infection. Excisional debridement of the right leg lateral aspect full-thickness ulceration down to and including subcutaneous tissue with a number 5 mm dermal curette without incident. Predebridement measurement was 11.0 x 2.5 x 0.1 cm. Postdebridement measurement was 11.5 x 3.0 x 0.1 cm. Musculoskeletal: Mild pain to palpation to full-thickness ulceration. No pain with calf compression. Debridement Note Debridement Note Debridement Free Text: Excisional debridement of the right leg lateral aspect full-thickness ulceration down to and including subcutaneous tissue with a number 5 mm dermal curette without incident. Predebridement measurement was 11.0 x 2.5 x 0.1 cm. Postdebridement measurement was 11.5 x 3.0 x 0.1 cm. Post-Debridement Measurements and Additional Note: Post-Debridement Measurements/Treatment - Nurse 1 - General Ulcer Assessment Start: 10/25/24 13:10 Freq: Status: Active Protocol: GALE Activity Type Activity Date Activity User E-sign Co-sign Detail Recorded Client Recorded Date Recorded By Document 10/25/24 13:10 [id number] 10/25/24 13:12 10/25/24 13:10 - Today's Visit Information Type of service Follow-up Visit (Physician/ORGAN PIPE FINISHER ) Arrival Mode Ambulatory,Cane Patient Identification Verified (Name & Yes ) Patient Requires Transmission-Based No Precautions Height and Weight Body Mass Index (BMI) 44.6 BMI Classification Obese Vital Signs Temperature (97.8 F-99.1 F) 97.9 F Temperature Source Temporal Pulse Rate (60-100) 69 Pulse Location Monitor Respiratory Rate (12-18) 16 Respiratory rate source Observation Oxygen Delivery Method Room Air Blood Pressure (90/60-120/80) 118/66 Blood Pressure Mean (mm Hg) 83 Source Monitor Position Sitting Blood Pressure Location Left Arm History Since Last Visit- (Skip if this is Patient's initial visit) Have you changed medications since your No last visit? Any new allergies or adverse reactions No Had a fall/change in ADL's that may Yes increase risk of falls Signs or symptoms of abuse and/or No neglect since last visit Have you been in the hospital since your Yes last visit? Has dressing in place as prescribed Yes Has compression in place as prescribed Yes Has offloadiing in place as prescribed No Experienced any changes in pain level or No management Left Footwear Regular Shoe Right Footwear Regular Shoe Pain Scale: 0-10 Numeric Is Patient Pain Free? Yes - Nurse 1 - General Ulcer Measurement Start: 10/25/24 13:10 Freq: Status: Active Protocol: Activity Type Activity Date Activity User E-sign Co-sign Detail Recorded Client Recorded Date Recorded By Document 10/25/24 13:10 [id number] 10/25/24 13:12 10/25/24 13:10 Wound Center Nurse 1 #5 RT LAT LE POST-OP -Current Size (cm) - Length 12.0 -Current Size (cm) - Width 2.1 -Current Size (cm) - Depth 0.1 -Total Square Cm 25.20 -Photo Taken No -Epithelialization Medium 34-66% -Tunneling No -Undermining/Tunneling No -Circular Undermining No -Exudate Amt Medium -Exudate Type Yellow/Green -Wound Margin Distinct, Outline Attached -Granulation Amt Medium (34-66%) -Granulation Quality Red -Slough/Fibrin No -Necrosis Amt None Present (0 %) -Texture (Mariza-wound Skin Appearance) Assessed -Moisture (Mariza-wound Skin Appearance) Assessed -Color (Mariza-wound Skin Appearance) Assessed -Temperature (Mariza-wound Skin No Abnormality Appearance) (Pt Warm) -Tenderness on Palpation (Mariza-wound No Skin Appearance) -Ulcer Cleansing Soap and Water -Foul Odor after Cleansing No -Anesthetic Used 4% Lidocaine Solution Lower Limb Edema Present No Right Calf (cm) 36.0 Right Ankle (cm) 24.0 - Nurse 2 - General Ulcer CM Notes Start: 10/25/24 13:10 Freq: Status: Active Protocol: Activity Type Activity Date Activity User E-sign Co-sign Detail Recorded Client Recorded Date Recorded By Document 10/25/24 13:24 [id number] 10/25/24 13:25 10/25/24 13:24 Wound Center Nurse 2 #5 RT LAT LE POST-OP -Time 13:24 -Correct Patient Yes -Correct Side, Site, Position Yes -Correct Procedure Yes -Procedure Performed Yes -Type of Procedure Debridement -Clinical Debridement Subcutaneous -Tissue Removed Subcutaneous -Post Debridement (cm) - Length 11.5 -Post Debridement (cm) - Width 3 -Post Debridement (cm) - Depth 0.1 -Total Square (Post) (cm) 34.5 -Area of Debridement (cm) - Length 11.5 -Area of Debridement (cm) - Width 3 -Total Square (Area) (cm) 34.5 -Tunneling No -Undermining/Tunneling No -Circular Undermining No -Wound/Ulcer Outcome Not Healed -Ulcer Cleansing Rinsed/ Irrigated with Saline -Foul Odor after Cleansing No -Bioengineered Tissue No -Bleeding Controlled with Pressure -Treatment Response Procedure Tolerated Well -Offloading No -Debridement - Subq, 1st 20sq cm Yes -Debridement, SubQ, ea addt'l 20sq cm 1 or part thereof Pain Scale: 0-10 Numeric Is Patient Pain Free? Yes - Nurse 3 - General Ulcer D/C NN Start: 10/25/24 13:10 Freq: Status: Active Protocol: Activity Type Activity Date Activity User E-sign Co-sign Detail Recorded Client Recorded Date Recorded By Document 10/25/24 13:45 CP [id number] 10/25/24 13:46 CP 10/25/24 13:45 Wound Care Center Nurse 3 #5 RT LAT LE POST-OP -Ulcer Cleansing Rinsed/ Irrigated with Saline -Foul Odor after Cleansing No -Primary Dressing Applied Promogran Page Matter -Primary Dressing Covered/Secured with Dry Gauze & Roll Gauze -Promogran Page Matter 1 RLE -Compression Wrap Celso Wrap Pain Scale: 0-10 Numeric Is Patient Pain Free? Yes WC - Visit Discharge Discharge Condition Stable Ambulatory Status Ambulatory,Cane Transportation Private Auto Clinical Summary of Care Provided Yes Facility Type [facility] [employer] [facility] [employer] Care Facility Orders Sent Yes Assessment/Plan Assessment/Plan (1) Non-pressure chronic ulcer of 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: CODE(S): L97.212 - Non-pressure chronic ulcer of 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 PLAN: Patient was examined and evaluated. All findings were discussed with the patient. All questions were answered to the patient's satisfaction. Excisional debridement of the right leg lateral aspect full-thickness ulceration down to and including subcutaneous tissue with a number 5 mm dermal curette without incident. Predebridement measurement was 11.0 x 2.5 x 0.1 cm. Postdebridement measurement was 11.5 x 3.0 x 0.1 cm. Right lower extremities were cleaned and pat dry. Moist Page was fitted to the size of the wound followed by dry sterile dressing and Celso wrap was applied. New orders for dressing changes and washing of the full-thickness wound with showers was dispensed to the patient to get back to the nursing staff at residential facility. Educated patient continue the IV antibiotics per the infectious disease recommendation. Follow-up at the wound care center with Dr. Shannon in 2 week.
[2024-11-08 10:09] VITALS: BP 137/71; PULSE 57; RESP 18; TEMP 37.1; BMI 44.6
--- NOTE | 2024-11-13 12:07 | PCM.WC.PN ---
History of Present Illness Date of Service: 11/08/24 Chief Complaint: Right buttock ulceration History of Wound: Patient is 69-year-old male chronic ulceration to the lateral right leg stable with no sign of infection. Progress of Wound: Stable full-thickness wound to the lateral right lower extremity stable no sign of infection. Subjective Subjective Patient is a 69-year-old male presenting to wound care center today for follow-up and evaluation of right lateral full-thickness wound. Patient has been getting dressing changes as ordered at the nursing facility. He is doing well. Patient still has an indwelling catheter in his urethra that is being monitored by medicine at the assisted [facility]. He denies trauma. Denies constitutional symptoms. No other pedal complaints at this time. Objective Data Objective Data Vital Signs: Vital Signs Temp Pulse Resp BP O2 Del Method 98.7 F 57 L 18 137/71 H Room Air 11/08/24 10:11/08/24 10:11/08/24 10:11/08/24 10:10/25/24 13:10 Oxygen Delivery Method Room Air Weight: 157.85 kg Body Mass Index (BMI) 44.6 Physical Exam Narrative Vascular: DP and PT pulses are palpable to the right lower extremity. Nonpitting edema appreciated to the right lower extremity. Skin temperature gradient is warm to warm from proximal ankles to distal digit. No focal increase appreciated. Evidence of varicosities appreciated left lower extremity. Neurological: Light touch intact. Patient response to painful stimuli. Protective sensation is diminished. Dermatological: Full-thickness ulceration to the lateral aspect of the right leg measuring 9.0 x 2.8 x 0.1 cm. Wound base is granular. No malodor or probe to bone. No sign of infection. Excisional debridement of the right leg lateral aspect full-thickness ulceration down to and including subcutaneous tissue with a number 5 mm dermal curette without incident. Predebridement measurement was 8.5 x 2.6 x 0.1 cm. Postdebridement measurement was 9.0 x 2.8 x 0.1 cm. Musculoskeletal: Mild pain to palpation to full-thickness ulceration. No pain with calf compression. Debridement Note Debridement Note Debridement Free Text: Excisional debridement of the right leg lateral aspect full-thickness ulceration down to and including subcutaneous tissue with a number 5 mm dermal curette without incident. Predebridement measurement was 8.5 x 2.6 x 0.1 cm. Postdebridement measurement was 9.0 x 2.8 x 0.1 cm. Assessment/Plan Assessment/Plan (1) Non-pressure chronic ulcer of 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: CODE(S): L97.212 - Non-pressure chronic ulcer of 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 PLAN: Patient was examined and evaluated. All findings were discussed with the patient. All questions were answered to the patient's satisfaction. Excisional debridement of the right leg lateral aspect full-thickness ulceration down to and including subcutaneous tissue with a number 5 mm dermal curette without incident. Predebridement measurement was 8.5 x 2.6 x 0.1 cm. Postdebridement measurement was 9.0 x 2.8 x 0.1 cm. Right lower extremities were cleaned and pat dry. Moist Page was fitted to the size of the wound followed by dry sterile dressing and Celso wrap was applied. New orders for dressing changes and washing of the full-thickness wound with showers was dispensed to the patient to get back to the nursing staff at assisted facility. Follow-up at the wound care center with Dr. Shannon in 3 week.
[2024-11-15 15:32] LABS: Bedside Glucose 110 mg/dL (74-106)
== END 2024-11-08 23:59 | disposition home or self-care (01) ==
LOC: WC 09:45
PROVIDERS: PCP Internal Medicine; Referring Provider Surgery; Visit Provider Podiatrist Foot & Ankle Surgery
DX: E11.622 Type 2 diabetes mellitus with other skin ulcer (principal); L97.212 Non-pressure chronic ulcer of 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; Z86.14 Personal history of Methicillin resistant Staphylococcus aureus infection; R60.0 Localized edema
CPT/HCPCS: 11042; 11045; 82962

== ENCOUNTER 2024-11-29 09:36 | Outpatient (RCR) | payer MEDICARE, SELFPAY ==
[2024-11-09 00:40] VITALS: BP 137/71; PULSE 57; RESP 18; TEMP 37.1; BMI 44.6
[2024-11-29 09:38] VITALS: BP 127/67; PULSE 56; RESP 18; TEMP 36.6; BMI 44.6
--- NOTE | 2024-11-29 12:42 | PCM.WC.PN ---
History of Present Illness Date of Service: 11/29/24 Chief Complaint: Right buttock ulceration History of Wound: Patient is 69-year-old male chronic ulceration to the lateral right leg stable with no sign of infection. Progress of Wound: Stable full-thickness wound to the lateral right lower extremity stable no sign of infection. Subjective Subjective Patient is a 69-year-old diabetic male presenting with her send a follow-up evaluation of right lower extremity lateral wound. Patient has been getting dressing changes as prescribed and admits the wound is improving and doing well. His blood sugar has been well-controlled. He denies any trauma. Denies constitutional symptoms. No other pedal complaints at this time. Objective Data Objective Data Vital Signs: Vital Signs Temp Pulse Resp BP O2 Del Method 97.8 F 56 L 18 127/67 H Room Air 11/29/24 09:38 11/29/24 09:38 11/29/24 09:38 11/29/24 09:38 11/29/24 09:38 Oxygen Delivery Method Room Air Weight: 157.85 kg Body Mass Index (BMI) 44.6 Physical Exam Narrative Vascular: DP and PT pulses are palpable to the right lower extremity. Nonpitting edema appreciated to the right lower extremity. Skin temperature gradient is warm to warm from proximal ankles to distal digit. No focal increase appreciated. Evidence of varicosities appreciated left lower extremity. Neurological: Light touch intact. Patient response to painful stimuli. Protective sensation is diminished. Dermatological: Full-thickness ulceration to the lateral aspect of the right leg measuring 7.2 x 2.4 x 0.1 cm. Wound base is granular. No malodor or probe to bone. No sign of infection. Excisional debridement of the right leg lateral aspect full-thickness ulceration down to and including subcutaneous tissue with a number 5 mm dermal curette without incident. Predebridement measurement was 7.0 x 2.1 x 0.1 cm. Postdebridement measurement was 7.2 x 2.4 x 0.1 cm. Musculoskeletal: Mild pain to palpation to full-thickness ulceration. No pain with calf compression. Debridement Note Debridement Note Debridement Free Text: Excisional debridement of the right leg lateral aspect full-thickness ulceration down to and including subcutaneous tissue with a number 5 mm dermal curette without incident. Predebridement measurement was 7.0 x 2.1 x 0.1 cm. Postdebridement measurement was 7.2 x 2.4 x 0.1 cm. 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 Yes CODY - Nurse 1 - General Ulcer Measurement Start: 11/29/24 09:38 Freq: Status: Active Protocol: Activity Type Activity Date Activity User E-sign Co-sign Detail Recorded Client Recorded Date Recorded By Document 11/29/24 09:38 HANNAH [id number] 11/29/24 09:45 11/29/24 09:38 Wound Center Nurse 1 #5 RT LAT LE POST-OP -Current Size (cm) - Length 8.4 -Current Size (cm) - Width 2.5 -Current Size (cm) - Depth 0.1 -Total Square Cm 21.00 -Epithelialization Large 67-100% -Exudate Amt Medium -Exudate Type Serosanguineous -Wound Margin Distinct, Outline Attached -Granulation Amt Large (67-100%) -Granulation Quality Red -Texture (Mariza-wound Skin Appearance) Assessed, Scarring -Moisture (Mariza-wound Skin Appearance) Assessed -Color (Mariza-wound Skin Appearance) Assessed -Temperature (Mariza-wound Skin No Abnormality Appearance) (Pt Warm) -Tenderness on Palpation (Mariza-wound No Skin Appearance) -Ulcer Cleansing Soap and Water -Foul Odor after Cleansing No -Anesthetic Used 4% Lidocaine Solution Right Calf (cm) 35.7 Right Ankle (cm) 24 WC - Nurse 2 - General Ulcer CM Notes Start: 11/29/24 09:38 Freq: Status: Active Protocol: Activity Type Activity Date Activity User E-sign Co-sign Detail Recorded Client Recorded Date Recorded By Document 11/29/24 10:03 TALI [id number] 11/29/24 10:04 TALI 11/29/24 10:03 Wound Center Nurse 2 #5 RT LAT LE POST-OP -Post Debridement (cm) - Length 7.2 -Post Debridement (cm) - Width 2.4 -Post Debridement (cm) - Depth 0.1 -Total Square (Post) (cm) 17.28 -Area of Debridement (cm) - Length 7.2 -Area of Debridement (cm) - Width 2.4 -Total Square (Area) (cm) 17.28 -Tunneling No -Undermining/Tunneling No -Circular Undermining No -Wound/Ulcer Outcome Not Healed -Ulcer Cleansing Rinsed/ Irrigated with Saline -Foul Odor after Cleansing No -Bioengineered Tissue No -Bleeding Controlled with Pressure -Treatment Response Procedure Tolerated Well -Offloading No -Debridement - Subq, 1st 20sq cm Yes Pain Scale: 0-10 Numeric Is Patient Pain Free? Yes - Nurse 3 - General Ulcer D/C NN Start: 11/29/24 09:38 Freq: Status: Active Protocol: Activity Type Activity Date Activity User E-sign Co-sign Detail Recorded Client Recorded Date Recorded By Document 11/29/24 10:17 [id number] 11/29/24 10:18 11/29/24 10:17 Wound Care Center Nurse 3 #5 RT LAT LE POST-OP -Ulcer Cleansing Not Cleansed -Foul Odor after Cleansing No -Primary Dressing Applied Promogran Page Matter -Primary Dressing Covered/Secured with Dry Gauze & Roll Gauze, Secured with Tape -Promogran Page Matter 1 LLE -Tubular Bandage Double Layer -Size of Tubigrip Used Size E -Size E ($) 2 RLE -Lotion applied to leg before No compression wrap -Compression Wrap Celso Wrap Pain Scale: 0-10 Numeric Is Patient Pain Free? Yes - Visit Discharge Discharge Condition Stable Ambulatory Status Ambulatory Transportation Private Auto Clinical Summary of Care Provided Yes Assessment/Plan Assessment/Plan (1) Non-pressure chronic ulcer of 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: CODE(S): L97.212 - Non-pressure chronic ulcer of 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 PLAN: Patient was examined and evaluated. All findings were discussed with the patient. All questions were answered to the patient's satisfaction. Excisional debridement of the right leg lateral aspect full-thickness ulceration down to and including subcutaneous tissue with a number 5 mm dermal curette without incident. Predebridement measurement was 7.0 x 2.1 x 0.1 cm. Postdebridement measurement was 7.2 x 2.4 x 0.1 cm. Right lower extremities were cleaned and pat dry. Moist Page was fitted to the size of the wound followed by dry sterile dressing and Celso wrap was applied. Continue the same orders for dressing changes and washing of the full-thickness wound with showers was dispensed to the patient to get back to the nursing staff at [facility] facility. Follow-up at the wound care center with Dr. Shannon in 3 week.
--- NOTE | 2024-11-30 10:24 | WC ---
PHOTO 11/29/24 RIGHT LEG LATERAL
== END 2024-12-09 23:59 | disposition home or self-care (01) ==
LOC: WC 09:36
PROVIDERS: PCP Internal Medicine; Referring Provider Surgery; Visit Provider Podiatrist Foot & Ankle Surgery
DX: E11.622 Type 2 diabetes mellitus with other skin ulcer (principal); L97.212 Non-pressure chronic ulcer of 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; Z86.14 Personal history of Methicillin resistant Staphylococcus aureus infection
CPT/HCPCS: 11042

== ENCOUNTER 2025-01-03 08:23 | Outpatient (RCR) | payer MEDICARE, SELFPAY ==
[2024-12-10 00:19] VITALS: BP 127/67; PULSE 56; RESP 18; TEMP 36.6; BMI 44.6
--- NOTE | 2024-12-13 15:47 | WC ---
Message from Silvia, from [facility] called to inform WC that pt is refusing any wound care at this time from the Wound Nurse at [facility].
[2025-01-03 09:51] VITALS: BP 119/66; PULSE 68; RESP 16; TEMP 37.1; BMI 44.6
--- NOTE | 2025-01-03 10:42 | PN.PCM_ITS ---
History of Present Illness Date of Service: 01/03/25 Chief Complaint: Right buttock ulceration History of Wound: Patient is 69-year-old male chronic ulceration to the lateral right leg stable with no sign of infection. Progress of Wound: Improving right leg ulceration Subjective Subjective Patient is a 69-year-old diabetic male presenting to wound care center today for follow-up evaluation of right lateral leg full-thickness wound. Patient has been getting dressing changes at the [facility] as ordered. He is wearing compression at the facility but states they are too tight and he is not wearing them today. His blood sugar has been well-controlled. He is not as ambulatory as he was previously and only uses his legs to transfer when needed. Otherwise he is resting and elevating his bilateral lower extremity. He is a bit frustrated with the nursing facility but overall is doing well especially from a wound standpoint. Denies trauma. Denies constitutional symptoms. No other pedal complaints at this time. Objective Data Objective Data Vital Signs: Vital Signs Temp Pulse Resp BP 98.7 F 68 16 119/66 01/03/25 09:51 01/03/25 09:51 01/03/25 09:51 01/03/25 09:51 Weight: 157.85 kg Body Mass Index (BMI) 44.6 Physical Exam Narrative Vascular: DP and PT pulses are palpable to the right lower extremity. Nonpitting edema appreciated to the right lower extremity. Skin temperature gradient is warm to warm from proximal ankles to distal digit. No focal increase appreciated. Evidence of varicosities appreciated left lower extremity. Neurological: Light touch intact. Patient response to painful stimuli. Protective sensation is diminished. Dermatological: Full-thickness ulceration to the lateral aspect of the right leg measuring 5.2 x 1.8 x 0.1 cm wound base is granular. No malodor or probe to bone. No sign of infection. Excisional debridement of the right leg lateral aspect full-thickness ulceration down to and including subcutaneous tissue with a number 5 mm dermal curette without incident. Predebridement measurement was 5.0 x 1.6 x 0.1 cm. Po stdebridement measurement was 5.2 x 1.8 x 0.1 cm. Musculoskeletal: No pain to palpation to full-thickness ulceration. No pain with calf compression. Debridement Note Debridement Note Debridement Free Text: Excisional debridement of the right leg lateral aspect full-thickness ulceration down to and including subcutaneous tissue with a number 5 mm dermal curette without incident. Predebridement measurement was 5.0 x 1.6 x 0.1 cm. Postdebridement measurement was 5.2 x 1.8 x 0.1 cm. Post-Debridement Measurements and Additional Note: Post-Debridement Measurements/Treatment WC - Nurse 1 - General Ulcer Assessment Start: 01/03/25 09:51 Freq: Status: Active Protocol: GALE Activity Type Activity Date Activity User E-sign Co-sign Detail Recorded Client Recorded Date Recorded By Document 01/03/25 09:51 ML [id number] 01/03/25 09:58 ML 01/03/25 09:51 WC - Today's Visit Information Type of service Follow-up Visit (Physician/[employer]ODU[employer] INSPECTOR ) Arrival Mode Wheelchair Transfer Assistance Manual Patient Identification Verified (Name & Yes ) Patient Requires Transmission-Based No Precautions Height and Weight Body Mass Index (BMI) 44.6 BMI Classification Obese Vital Signs Temperature (97.8 F-99.1 F) 98.7 F Temperature Source Temporal Pulse Rate (60-100) 68 Pulse Location Monitor Respiratory Rate (12-18) 16 Respiratory rate source Observation Blood Pressure (90/60-120/80) 119/66 Blood Pressure Mean (mm Hg) 83 Source Monitor Position Sitting Blood Pressure Location Right Arm History Since Last Visit- (Skip if this is Patient's initial visit) Have you changed medications since your No last visit? Any new allergies or adverse reactions No Had a fall/change in ADL's that may No increase risk of falls Signs or symptoms of abuse and/or No neglect since last visit Have you been in the hospital since your No last visit? Has dressing in place as prescribed Yes Has compression in place as prescribed N/A Has offloadiing in place as prescribed N/A Experienced any changes in pain level or No management Pain Scale: 0-10 Numeric Is Patient Pain Free? Yes - Nurse 1 - General Ulcer Measurement Start: 01/03/25 09:51 Freq: Status: Active Protocol: Activity Type Activity Date Activity User E-sign Co-sign Detail Recorded Client Recorded Date Recorded By Document 01/03/25 09:51 ML [id number] 01/03/25 09:58 ML 01/03/25 09:51 Wound Center Nurse 1 #5 RT LAT LE POST-OP -Combined with other wound No -Current Size (cm) - Length 7 -Current Size (cm) - Width 2.8 -Current Size (cm) - Depth 0.1 -Total Square Cm 19.6 -Photo Taken Yes -Tunneling No -Undermining/Tunneling No -Circular Undermining No -Exudate Amt Large -Exudate Type Serosanguineous -Wound Margin Distinct, Outline Attached -Granulation Amt Large (67-100%) -Granulation Quality [place] -Slough/Fibrin Yes -Necrosis Amt Small (1-33%) -Necrotic Tissue Type Adherent Slough -Structure Exposed N/A -Texture (Mariza-wound Skin Appearance) Scarring -Moisture (Mariza-wound Skin Appearance) Assessed -Color (Mariza-wound Skin Appearance) Assessed -Temperature (Mariza-wound Skin No Abnormality Appearance) (Pt Warm) -Tenderness on Palpation (Mariza-wound No Skin Appearance) -Ulcer Cleansing Wound Cleanser -Foul Odor after Cleansing No -Anesthetic Used 5% Lidocaine Gel WC - Nurse 2 - General Ulcer CM Notes Start: 01/03/25 09:51 Freq: Status: Active Protocol: Activity Type Activity Date Activity User E-sign Co-sign Detail Recorded Client Recorded Date Recorded By Document 01/03/25 10:03 DS [id number] 01/03/25 10:06 DS 01/03/25 10:03 Wound Center Nurse 2 -Time 10:04 -Correct Patient Yes -Correct Side, Site, Position Yes -Correct Procedure Yes -Procedure Performed Yes -Type of Procedure Debridement -Clinical Debridement Subcutaneous -Tissue Removed Subcutaneous -Post Debridement (cm) - Length 5.2 -Post Debridement (cm) - Width 1.8 -Post Debridement (cm) - Depth 0.1 -Total Square (Post) (cm) 9.36 -Area of Debridement (cm) - Length 5.2 -Area of Debridement (cm) - Width 1.8 -Total Square (Area) (cm) 9.36 -Tunneling No -Undermining/Tunneling No -Circular Undermining No -Wound/Ulcer Outcome Not Healed -Ulcer Cleansing Rinsed/ Irrigated with Saline -Foul Odor after Cleansing No -Bioengineered Tissue No -Bleeding Controlled with Pressure -Treatment Response Procedure Tolerated Well -Offloading No -Debridement - Subq, 1st 20sq cm Yes Pain Scale: 0-10 Numeric Is Patient Pain Free? Yes WC - Nurse 3 - General Ulcer D/C NN Start: 01/03/25 09:51 Freq: Status: Active Protocol: Activity Type Activity Date Activity User E-sign Co-sign Detail Recorded Client Recorded Date Recorded By Document 01/03/25 10:21 ML [id number] 01/03/25 10:23 ML 01/03/25 10:21 Wound Care Center Nurse 3 #5 RT LAT LE POST-OP -Ulcer Cleansing Rinsed/ Irrigated with Saline -Primary Dressing Applied Promogran Page Matter -Other Dressing BRITTANY -Primary Dressing Covered/Secured with Dry Gauze & Roll Gauze, Secured with Tape -Promogran Page Matter 1 Pain Scale: 0-10 Numeric Is Patient Pain Free? Yes Assessment/Plan Assessment/Plan (1) Non-pressure chronic ulcer of 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: CODE(S): L97.212 - Non-pressure chronic ulcer of 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 PLAN: Patient was examined and evaluated. All findings were discussed with the patient. All questions were answered to the patient's satisfaction. Excisional debridement of the right leg lateral aspect full-thickness ulceration down to and including subcutaneous tissue with a number 5 mm dermal curette without incident. Predebridement measurement was 5.0 x 1.6 x 0.1 cm. Postdebridement measurement was 5.2 x 1.8 x 0.1 cm. The right lower extremities were cleaned and patted dry. Moist present was applied followed by dry sterile dressing and Tubigrip. Encouraged ambulation. Educated the patient continue rest and elevate his bilateral lower extremity. Educated patient on strict blood sugar control. Follow-up at the wound care center with Dr. Shannon in 1 week.
--- NOTE | 2025-01-04 10:09 | WC ---
PHOTO 01/03/25 RIGHT LEG
== END 2025-01-08 23:59 | disposition home or self-care (01) ==
LOC: WC 08:23
PROVIDERS: PCP Internal Medicine; Referring Provider Surgery; Visit Provider Podiatrist Foot & Ankle Surgery
DX: E11.622 Type 2 diabetes mellitus with other skin ulcer (principal); L97.212 Non-pressure chronic ulcer of 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
CPT/HCPCS: 11042

== ENCOUNTER 2025-01-05 08:18 | Inpatient (IN) | payer MEDICARE, SELFPAY ==
[2025-01-05] VITALS (9 sets, daily range): BP systolic 119–165; BP diastolic 57–92; PULSE 49–66; RESP 15–18; TEMP 36.3–37; O2SAT 95–100; BMI 32.0
--- NOTE | 2025-01-05 08:40 | EX.ED.DYSGE1 ---
HPI History of Present Illness Chief Complaint: Mental Health Informant: EMS and SNF Limited: dementia and uncooperative Onset/Context/Timing Onset: Yesterday Timing: Continuous Quality: Nonverbal Location: Generalized Worsened by: Nothing Relieved by: Nothing Narrative Narrative: Patient presents with possible mental status change. Patient is nonverbal. Patient refuses to answer questions. skilled nursing staff states that patient may have had a fall yesterday. EMS reports that the patient has a history of bipolar disorder and has had similar symptoms in the past. Prior similar symptoms: Yes [facility] Medical History Major depressive disorder, single episode, unspecified Bipolar disorder, unspecified Other specified peripheral vascular diseases MRSA (methicillin resistant staph aureus) culture positive Lives in group home Wears dentures Depression Anxiety Walker as ambulation aid Ambulates with cane Headache Shortness of breath on exertion Cardiology follow-up encounter History of renal disease Insulin dependent diabetes mellitus Pressure ulcer Abscess Indwelling urethral catheter present Acute painful diabetic polyneuropathy Cancer Former smoker CPAP (continuous positive airway pressure) dependence On home oxygen therapy Pulmonary embolism COPD (chronic obstructive pulmonary disease) Myocardial infarct DVT (deep venous thrombosis) Anemia Ulcer with necrosis of muscle Lymphedema of left lower extremity Lymphedema of right lower extremity Edema of left lower leg Edema of right lower leg Left leg swelling Right leg swelling Chronic venous insufficiency Non-pressure ulcer of right lower extremity with necrosis of muscle BPH (benign prostatic hyperplasia) Atrial fibrillation Blood loss anemia Hypertension Hiatal hernia Diverticulosis Debility Morbid obesity with BMI of 40.0-44.9, adult Impaired mobility SOB (shortness of breath) Heart murmur Heart failure 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 2 diabetes mellitus Aortic valve disease Renal mass, left History of DVT (deep vein thrombosis) Valvular heart disease Atrial fibrillation/flutter Chronic acquired lymphedema Chronic anemia Venous insufficiency (chronic) (peripheral) Ulcer of left lower extremity with fat layer exposed Superficial thrombosis of left lower extremity Peripheral vascular disease of lower extremity with ulceration Sleep apnea Morbid obesity DM2 (diabetes mellitus, type 2) Benign essential HTN Home Medications ?Medication ?Instructions ?Recorded ?Last Taken ?Type aspirin 81 mg tablet,delayed 81 mg PO DAILY AFIB 03/17/19 Unknown History release amlodipine 5 mg tablet 5 mg PO DAILY AFIB 10/28/23 Unknown History apixaban 5 mg tablet (Eliquis) 5 mg PO BID AFIB 10/28/23 Unknown History atorvastatin 20 mg tablet 20 mg PO QHS HYPERLIPIDEMIA 10/28/23 10/13/24 History melatonin 3 mg tablet 6 mg PO QHS INSOMNIA 10/28/23 Unknown History tamsulosin 0.4 mg capsule 0.4 mg PO QHS PROSTATIC HYPERPLASIA 12/22/23 Unknown History insulin glargine 100 unit/mL (3 23 unit subcut QHS DIABETIC 06/01/24 Unknown History mL) subcutaneous pen (Lantus Solostar U-100 Insulin) donepezil 5 mg tablet 5 mg PO QHS MEMORY 08/16/24 Unknown History gabapentin 100 mg capsule 200 mg PO TID NEUROPATHY 08/16/24 Unknown History insulin lispro 100 unit/mL See Protocol subcut TID DIABETIC 08/16/24 Unknown History subcutaneous pen (Humalog KwikPen (U-100) Insulin) lurasidone 40 mg tablet 40 mg PO QHS MOOD 08/16/24 Unknown History potassium chloride 10 mEq 10 meq PO BID POTASSIUM 08/16/24 Unknown History capsule,extended release torsemide 20 mg tablet 20 mg PO BID HEART 08/16/24 Unknown History budesonide-formoterol HFA 160 1 puff inhalation DAILY COPD 09/16/24 Unknown History mcg-4.5 mcg/actuation aerosol inhaler (Symbicort) trazodone 100 mg tablet 100 mg PO QHS insomnia 09/16/24 Unknown History acetaminophen 500 mg tablet 1,000 mg PO TID PAIN 01/05/25 Unknown History lactulose 10 gram/15 mL oral 20 g PO DAILY 01/05/25 Unknown History solution magnesium hydroxide 400 mg/5 mL 30 ml PO DAILY PRN constipation 01/05/25 Unknown History oral suspension (Dulcolax (magnesium hydroxide)) mecobalamin (vitamin B12) 500 mcg 500 mcg PO DAILY 01/05/25 Unknown History chewable tablet Allergy/AdvReac Type Severity Reaction Status Date / Time ibuprofen (From Nuprin) Allergy Unknown Verified 01/05/25 08:19 Family History Mother Diabetes Father Cirrhosis of liver Alcoholism Surgical History History of incision and drainage History of embolic filter insertion History of right inguinal hernia repair H/O colectomy History of repair of inguinal hernia History of bladder surgery History of tonsillectomy and adenoidectomy History of right inguinal hernia repair S/P AVR (aortic valve replacement) Social History housing: group home Smoking Status: Former smoker how long ago did patient quit smoking: Quit ~ 20 yrs prior, smoked age 15 until quit ~ 2 ppd. alcohol intake: never substance use type: does not use ROS ROS ED Review of Systems ROS Unobtainable: due to mental condition EXAM Physical Exam Const Vital Signs: 01/05/25 08:18 01/05/25 08:19 01/05/25 08:28 Temperature 97.4 F L Temperature Source Temporal Pulse Rate Respiratory Rate 16 16 Respiratory Effort Normal Non-Labored Blood Pressure Blood Pressure Mean Pulse Ox Oxygen Delivery Method 01/05/25 11:12 01/05/25 13:00 Temperature 98.6 F Temperature Source Oral Pulse Rate 66 49 L Respiratory Rate 18 Respiratory Effort Blood Pressure 144/92 H 136/66 H Blood Pressure Mean 109 89 Pulse Ox 98 Oxygen Delivery Method Room Air Positive well nourished and well developed General Appearance ED: well developed and NAD HEENT Reports moist mucous membranes Neck supple and no JVD Resp normal respiratory effort and clear to auscultation bilaterally Cardio regular rate GI non-tender and non-distended Palpation: soft Neuro Neuro Narrative: Patient is awake. Patient does not interact with me when I interview him in the room. Patient continues to stare straight ahead. Patient does not respond to verbal stimuli. Patient does not follow commands. Psych mental status grossly normal MDM MDM MDM Narrative Medical decision making narrative: Differential diagnosis includes pneumonia, sepsis, cardiac dysrhythmia, cardiac ischemia, stroke, intracranial bleeding, electrolyte abnormality, hypoglycemia, and bipolar disorder. EKG will be obtained to assess for cardiac dysrhythmia and cardiac ischemia. Chest x-ray will be obtained to assess for pneumonia and bronchitis. CBC will be obtained to assess for leukocytosis and anemia. Basic metabolic profile will be obtained to assess for electrolyte abnormality, hypoglycemia, and renal function. Urinalysis will be obtained to assess for urinary tract infection and hematuria. CT scan of the brain will be obtained to assess for intracranial bleeding and stroke. History & Record Review Additional record(s) reviewed:: Prior labs Lab Data Attestation: I reviewed the patient's lab results. Lab results narrative: CBC was reviewed. There is a mild anemia with a hemoglobin of 12.4 and hematocrit of 39.3. Platelets were normal. Basic metabolic profile was reviewed. BUN was 30 and creatinine was 1.5. These were increased from previous results. Urinalysis was reviewed. Leukocyte Estrace was 500. There are 5-10 white blood cells and 2+ bacteria. There are positive nitrites. Labs: Laboratory Results - last 24 hr 01/05/25 01/05/25 10:47 11:15 WBC 4.7 RBC 4.65 Hgb 12.4 L Hct 39.3 L MCV 84.5 MCH 26.7 L MCHC 31.6 L RDW Std Deviation 47.2 H RDW Coeff of Carlito 15.4 H Plt Count 177 MPV 11.7 Immature Gran % (Auto) 0.000 Neut % (Auto) 54.3 Lymph % (Auto) 23.9 [place] % (Auto) 16.1 H Eos % (Auto) 5.1 H Baso % (Auto) 0.6 Absolute Neuts (auto) 2.6 Absolute Lymphs (auto) 1.13 Nucleated RBC % 0 Sodium 139 Potassium 4.4 Chloride 102 Carbon Dioxide 25.0 Anion Gap 12 BUN 30 H Creatinine 1.50 H Est GFR (MDRD) Non-Af 50 L BUN/Creatinine Ratio 19.9 Glucose 104 H Calcium 9.7 Urine Color Yellow Urine Clarity Sl. Cloudy Urine pH 8.0 Ur Specific [place] 1.010 Urine Protein 100 H Urine Glucose (UA) Normal Urine Ketones Negative Urine Occult Blood 150 H Urine Nitrite Positive H Urine Bilirubin Negative Urine Urobilinogen Normal Ur Leukocyte Esterase 500 H Urine RBC 5-10 SEEN Urine WBC 5-10 SEEN Ur Squamous Epith Cells 0 SEEN Triple Phos Crystals 1+ Urine Bacteria 2+ Urine Mucus 0 SEEN Radiography Chest X-Ray - ED: 1 View, Read by ED Physician, Read by Radiologist and No Acute Disease Diagnostic Testing: Clinical Impression(s) from Imaging Studies Brain CT 01/05/25 08:51 IMPRESSION: CHRONIC CHANGES. NO ACUTE FINDINGS. Reading Location: [facility] Chest X-Ray 01/05/25 12:30 IMPRESSION: No acute abnormality is seen. Reading Location: [facility] Portable 1 view chest x-ray was obtained. On my independent interpretation, lung breen are clear. There is normal cardiac silhouette. Bony thorax is normal. There is no acute process noted. Radiologist also interpreted the x-ray and agrees. CT scan of the brain was obtained. There is no acute intracranial abnormality. This was interpreted by the radiologist and was also independently reviewed by myself. EKG Initial EKG: Attestation: I personally reviewed and interpreted this EKG as follows: Interpretation: Sinus Bradycardia (52) and Non-Specific ST Changes Comments: EKG was obtained. On my independent interpretation, shows sinus bradycardia with a rate of 52. WI interval was borderline at 200 ms. QRS interval was slightly prolonged at 122 ms. QTc interval was normal at 460 ms. [place] was normal. There are nonspecific ST-T wave changes noted. Prior EKG tracings: available for review Prior: Unchanged (10/10/2024) Treatment and Re-Evaluation :: Patient was getting agitated. Patient was threatening nursing staff. Because of this, patient was given a dose of Ativan. Patient was still agitated and threatening. Patient was given a dose of Haldol. Patient was more calm and cooperative after this. Patient was given IV fluids and Rocephin. Urine culture was ordered. Case was discussed with the hospitalist for admission. She will admit the patient to her service. Discharge Plan Triage Chief Complaint: Mental Health Other Complaint: Fall ED Provider: Vivek Villatoro Dx/Rx/DC Orders Clinical Impression: Urinary tract infection, Acute kidney injury, Altered mental status Prescriptions: No Action tamsulosin 0.4 mg capsule 0.4 mg PO QHS aspirin 81 MG tablet,delayed release (DR/EC) 81 mg PO DAILY atorvastatin 20 mg tablet 20 mg PO QHS amlodipine 5 mg tablet 5 mg PO DAILY Eliquis 5 mg tablet 5 mg PO BID melatonin 3 mg tablet 6 mg PO QHS mecobalamin (vitamin B12) 500 mcg tablet,chewable 500 mcg PO DAILY lactulose 10 gram/15 mL solution 20 g PO DAILY magnesium hydroxide [Dulcolax (magnesium hydroxide)] 400 mg/5 mL suspension 30 ml PO DAILY PRN (Reason: constipation) acetaminophen 500 mg tablet 1,000 mg PO TID insulin glargine [Lantus Solostar U-100 Insulin] 100 unit/mL (3 mL) insulin pen 23 unit subcut QHS donepezil 5 mg tablet 5 mg PO QHS gabapentin 100 mg capsule 200 mg PO TID insulin lispro [Humalog KwikPen Insulin] 100 unit/mL insulin pen See Protocol subcut TID Protocol: 6. Sliding Scale Insulin Custom Condition: 151-200 Dose/Route: 2 UNITS Condition: 201-250 Dose/Route: 4 UNITS Condition: 251-300 Dose/Route: 6 UNITS Condition: 301-350 Dose/Route: 8 UNITS Condition: 351-400 Dose/Route: 10 UNITS Protocol Text: Custom Sliding Scale Rx Instructions: sliding scale lurasidone 40 mg tablet 40 mg PO QHS Rx Instructions: must administer with food (at least 350 calories) potassium chloride 10 mEq capsule, extended release 10 meq PO BID torsemide 20 mg tablet 20 mg PO BID budesonide-formoterol [Symbicort] 160-4.5 mcg/actuation HFA aerosol inhaler 1 puff inhalation DAILY trazodone 100 mg tablet 100 mg PO QHS Primary Care Provider: Kathleen Herzog Referrals: Kathleen Herzog MD [Primary Care Provider] - Print Language: Turkish Disposition Disposition: Acute Care Hospital [facility]
--- NOTE | 2025-01-05 08:51 | CT_ITS ---
PROCEDURE: BRAIN/HEAD WITHOUT CONTRAST 01/05/2025 REASON FOR EXAM: ALTERED MENTAL STATUS TECHNIQUE: BRAIN/HEAD WITHOUT CONTRAST Coronal and Sagittal reconstruction series were provided. One or more dose reduction techniques were used (e.g., Automated exposure control, adjustment of the mA and/or kV according to patient size, use of iterative reconstruction technique. RADIATION DOSE SUMMARY: CTDlvol: 44.99 mGy DLP: 812.98 mGycm COMPARISON: Prior study dated September 16, 2024. FINDINGS: Brain: Within normal limits for age CSF Spaces: Mild generalized cerebral atrophy Sinuses/Mastoids: Clear at visualized levels Bones: Unremarkable CT/Brain/Head without Contrast IMPRESSION: CHRONIC CHANGES. NO ACUTE FINDINGS. Reading Location: [id number]
[2025-01-05] MEDS: Lorazepam 2 MG/ML WCH Syringe IM (09:20)
--- NOTE | 2025-01-05 09:21 | ED.RN ---
9240 PT'S SON IS HIS HEALTHCARE POWER OF ROLL FORMING MACHINE SET UP MECHANIC. PT SENT IN FOR MENTAL HEALTH AND FALL. PT REFUSES TO ANSWER ANY QUESTIONS. ONLY STATE I'M GOING TO SMACK YOU. SON ROMINA NOTIFIED OF THE PLAN OF CARE AND ORDERS PLACED BY THE PRIMARY PHYSICIAN, . HE AGREES TO THE PLAN OF CARE AND STATES HE UNDERSTANDS THAT HIS FATHER WILL NEED MEDICATED IN ORDER TO SAFELY COMPLETE TESTING. PT'S SON STATES THAT HIS FATHER DOESN'T LISTEN TO ANYTHING HE SAYS.
--- NOTE | 2025-01-05 09:24 | ED.RN ---
0959 PT GOT UP OUT OF BED AND WALKING DOWN THE HALLWAY CARRYING HIS CATHETER STATING HE IS LEAVING. VERBAL DEESCALATION ATTEMPTED BY HRO YOLY AND SALES COACH SHERMAN. PT ASSISTED BACK TO BED WITH 4 MEDICAL STAFF. IM INJECTION VERBAL ORDER OBTAINED FROM
[2025-01-05 10:51] LABS: Mucous, Urine 0 SEEN /hpf (<or=2+); Squamous Epithelial Cells - UA 0 SEEN /hpf (0-5)
[2025-01-05 10:52] LABS: Color, Urine Yellow (Yellow); Glucose, Dipstick Normal (Normal); Ketone-Dipstick Negative (Negative); Leukocyte Esterase-Dipstick 500 /ul (Negative); Nitrite-Dipstick Positive (Negative); Occult Blood-Urine 150 /ul (Negative); Protein-Dipstick 100 mg/dl (Negative); Urine Bilirubin Dipstick Negative (Negative); Urine Clarity Sl. Cloudy (Clear); Urine Urobilinogen Normal (Normal)
[2025-01-05 10:58] LABS: Red Blood Cells-Urine 5-10 SEEN /hpf (0-5); Triple Phosphate Crystals Ur 1+ /hpf (<or=1+)
[2025-01-05] MEDS: Haloperidol Lactate 5 MG/ML Vial IM (10:58)
[2025-01-05 10:59] LABS: Bacteria 2+ /hpf (None Seen); White Blood Cells 5-10 SEEN /hpf (0-5)
--- NOTE | 2025-01-05 11:00 | ED.RN ---
PT TRYING TO GET OUT OF BED. JULIANO FULLER, AND SHERMAN LEWIS AT BEDSIDE. PT. KEEPS STATING IM GOING TO HIT. YOU. TELLS JULIANO FULLER IM GOING TO HIT YOU AND TAKE YOUR GUN. DR. TOWNSEND NOTIFIED MORE MEDS ORDERED.
--- NOTE | 2025-01-05 11:18 | ED.RN ---
PT. REFUSING IV AT THIS TIME. ABLE TO GET A BP CUFF AND HEART MONITOR ON HIM ORDERED. STRAIGHT STUCK PT. FOR BLOOD WORK
--- NOTE | 2025-01-05 11:26 | ED.RN ---
PT STILL ATTEMPTING TO GET OUT OF BED AFTER NUMEROUS ATTEMPTS TO REASON, AND CALM PT. DOWN. PT CONTINUES TO TRY TO SWING AT STAFF AND ATTEMPTED TO GET OUT OF BED. DR. TOWNSEND NOTIFIED GIVES VERBAL TO RESTRAIN PT.
[2025-01-05 11:29] LABS: Absolute Lymphocyte Count 1.13 X10^3/uL (0.83-4.51); Absolute Neutrophil Count 2.6 X10^3/uL (2.0-7.7); Basophil# 0.03 X10^3/uL; Basophil% 0.6 % (0-1); Eosinophil# 0.24 X10^3/uL; Eosinophils% 5.1 % (0-5); Hematocrit 39.3 % (40-54); Hemoglobin 12.4 g/dL (13.0-16.5); Lymphocyte # 1.13 X10^3/ul (0.83-4.51); Lymphocyte % 23.9 % (19-41); Mean Corp Hgb Conc 31.6 g/dL (32-36); Mean Corpuscular Hgb 26.7 pg (27.0-32.0); Mean Corpuscular Volume 84.5 fL (80-94); Mean Platelet Vol. 11.7 fl (6.2-12.0); Monocyte# 0.76 X10^3/uL; Monocyte% 16.1 % (0-10); NRBC Flagged by Analyzer 0 % (0-5); Neutrophil # 2.56 X10^3/uL (2.7-7.7); Neutrophil % 54.3 % (47-70); Platelet Count 177 K/mm3 (150-450); RBC Distribution Width CV 15.4 % (11.6-14.6); RBC Distribution Width SD 47.2 fl (35.1-43.9); Red Blood Count 4.65 M/mm3 (4.6-6.2); White Blood Count 4.7 K/mm3 (4.4-11.0)
[2025-01-05 11:53] LABS: Anion Gap 12 (5-15); BUN 30 mg/dL (4-19); BUN/Creat Ratio 19.9 RATIO (10-20); Calcium,Total 9.7 mg/dL (7.6-11.0); Chloride 102 mmol/L (98-108); EST Glomerular Filtration Rate 50 (>60); Glucose 104 mg/dL (70-99); Potassium 4.4 mmol/L (3.3-5.1); Sodium Level 139 mmol/L (133-145)
--- NOTE | 2025-01-05 12:30 | RAD_ITS ---
PROCEDURE: CHEST 1 VIEW (PORTABLE) 01/05/2025 REASON FOR EXAM: ALTERED MENTAL STATUS TECHNIQUE: Frontal view of the chest. COMPARISON: Prior study dated October 10, 2024. FINDINGS: Hardware: EKG electrodes are seen Heart: Prior midline sternotomy and coronary artery bypass surgery. The heart is nonenlarged. Lungs: The lungs are clear. Bones: Degenerative changes are identified within the thoracic spine. Other: RAD/Chest 1 View (Portable) IMPRESSION: No acute abnormality is seen. Reading Location: [id number]
--- NOTE | 2025-01-05 14:01 | CM.ED ---
Addendum entered by Bethany Ortiz 01/05/25 15:34: Social Work Patient not medically cleared for inpatient psychiatric hospitalization. Will be admitted for UTI. Due to UTI potentially exacerbating patients symptoms, patient may be reassessed once medically stable by social work or crisis if still exhibiting an increase in agitation and depression. Bethany Ortiz, DATA PROCESSING SYSTEMS CONSULTANT, POST ANESTHESIA NURSE Original Note: ? Social Work Psychiatric Assessment Reason for consult: Mental health Informant(s): Medical record, fdc staff Chief Complaint: ?Patient was brought in by EMS from [facility] due to change of mental status and increased aggression.? Patient refuses to participate in assessment with , however did engage sporadically with nursing staff and security staff .? Information provided by fdc staff and medical record.?? Patient presents to ED with flat affect, refusing to answer questions when asked, will track with eyes part of the time, then will close eyes and refuse any engagement.? Patient will make threatening motions such as hold up a fist but did not attempt to swing at .? SNF staff state that patient has had an increase in depressive symptoms, has been more tearful, making statements of not wanting to be alive and ?finding it hard to have reasons to keep going? ?Patient refused to participate in [place] SSRS. ?When asked if patient has any intent or plan, patient refuses to answer.??? Patient has made delusional statements such as telling people he is being locked in a room. Patient wandered out of fdc today and returned on his own, however staff report this was unusual for patient and they feel he has had a change in his mental health status. Marital/Social History: Living Situation: ?patient lives at [facility], has been there a little over a year Support/Resources: ?patient does not identify any, does have a son that is HPOA .? Also has a friend Braxton History: None Education and Employment History: Mental Health Treatment/History: Patient has diagnosis of major depressive disorder, bipolar disorder, depression, anxiety.? Patient is prescribed Latuda and Trazadone.? Triggers/Stressors to mental health: ?? Coping Skills: History of Abuse (physical/sexual/verbal/emotional): Substance Abuse Current/Historical: Risk to Self/Others: ? Suicidal (thought/plan/intent/attempt): patient makes statements of not wanting to live ? Access to Lethal Means: unknown ? Homicidal (thought/plan/intent/attempt): no ? History of Violence (self/others/objects): : patient was throwing objects at the fdc, swung and made contact with security guard today and make threats of trying to take the SO gun.? Orientation: unknown ??? Memory: unknown Appearance/General Behavior: ?Patient is disheveled, non-directable Mood/Affect: angry, depressed, flat Communication Pattern: ?minimal interaction with staff, mostly refused to participate in assessment, would not engage or answer majority of questions Thought Process: ?unable to assess General Intellectual Functioning:?? unable to assess Judgment: poor Insight: poor Plan?? Due to patients suicidal ideations, delusional statements, increase in depressive symptoms, and aggression, inpatient psychiatric placement is recommended.? Physician consulted and in agreement with same. Bethany Ortiz, DATA PROCESSING SYSTEMS CONSULTANT, POST ANESTHESIA NURSE ?
--- NOTE | 2025-01-05 14:41 | HP.PCM.HOS_ITS ---
HPI - General General Date of Admission: 01/05/25 Date of Service: 01/05/25 Chief Complaint: AMS HPI Narrative SHANELLE HUNTER, is a 69-year-old male with history of bipolar disorder, COPD, PAWEL, diabetes, VTE, A-fib, BPH presented [facility] ED 01/05/2025 with reported possible mental status change. Reportedly patient refusing answer questions and there was question of possible fall the day of before presentation. SNF staff thought he was more altered so called EMS. EMS reported that patient has history of bipolar disorder and has had similar symptoms to this in the past. In the ED patient afebrile, heart rate 66 with a blood pressure 144/92, respiratory rate 18 and pulse ox 98% on room air. CBC with normal white blood cell count, hemoglobin 12.4, BUN of 30 and creatinine 1.5 which does seem to be up from baseline of around 0.9, glucose 104. UA suspicious for infection. Chest x-ray and brain CT negative for acute process. Given patient's agitation and altered mental status in the setting of UTI and VALENTIN hospitalist contacted for admission, reportedly social work evaluated patient in ED there was concern that he could need psychiatric placement once these improved but there were further mental health concerns. Patient evaluated at bedside, very slow to respond and only responds to some questions but reports overall feeling tired and unwell, reports he has not had a bowel movement in 4 to 5 days and is making frustrated, has some abdominal discomfort associated with this but he cannot describe this further, possibly some burning on urination. Denies any chest pain or shortness of breath. Said he thinks he might of had a fever last night and might of had some coughing but was unable to further characterize that. [facility] Medical History Major depressive disorder, single episode, unspecified Bipolar disorder, unspecified Other specified peripheral vascular diseases MRSA (methicillin resistant staph aureus) culture positive Lives in [place] [facility] Wears dentures Depression Anxiety Walker as ambulation aid Ambulates with cane Headache Shortness of breath on exertion Cardiology follow-up encounter History of renal disease Insulin dependent diabetes mellitus Pressure ulcer Abscess Indwelling urethral catheter present Acute painful diabetic polyneuropathy Cancer Former smoker CPAP (continuous positive airway pressure) dependence On home oxygen therapy Pulmonary embolism COPD (chronic obstructive pulmonary disease) Myocardial infarct DVT (deep venous thrombosis) Anemia Ulcer with necrosis of muscle Lymphedema of left lower extremity Lymphedema of right lower extremity Edema of left lower leg Edema of right lower leg Left leg swelling Right leg swelling Chronic venous insufficiency Non-pressure ulcer of right lower extremity with necrosis of muscle BPH (benign prostatic hyperplasia) Atrial fibrillation Blood loss anemia Hypertension Hiatal hernia Diverticulosis Debility Morbid obesity with BMI of 40.0-44.9, adult Impaired mobility SOB (shortness of breath) Heart murmur Heart failure 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 2 diabetes mellitus Aortic valve disease Renal mass, left History of DVT (deep vein thrombosis) Valvular heart disease Atrial fibrillation/flutter Chronic acquired lymphedema Chronic anemia Venous insufficiency (chronic) (peripheral) Ulcer of left lower extremity with fat layer exposed Superficial thrombosis of left lower extremity Peripheral vascular disease of lower extremity with ulceration Sleep apnea Morbid obesity DM2 (diabetes mellitus, type 2) Benign essential HTN Home Medications ?Medication ?Instructions ?Recorded ?Last Taken ?Type aspirin 81 mg tablet,delayed 81 mg PO DAILY AFIB 03/17 Unknown History release amlodipine 5 mg tablet 5 mg PO DAILY AFIB 10/28/23 Unknown History apixaban 5 mg tablet (Eliquis) 5 mg PO BID AFIB Unknown History atorvastatin 20 mg tablet 20 mg PO QHS HYPERLIPIDEMIA 10/28/23 10/13/24 History melatonin 3 mg tablet 6 mg PO QHS INSOMNIA 4 Unknown History tamsulosin 0.4 mg capsule 0.4 mg PO QHS PROSTATIC HYPE RPLASIA 12/22/23 Unknown History insulin glargine 100 unit/mL (3 23 unit subcut QHS KOBI BETIC 06/01/24 Unknown History mL) subcutaneous pen (Lantus Solostar U-100 Insulin) donepezil 5 mg tablet 5 mg PO QHS MEMORY 08/16/24 Unknown History gabapentin 100 mg capsule 200 mg PO TID NEUROPATHY 12/03 Unknown History insulin lispro 100 unit/mL See Protocol subcut TID KOBI BETIC 08/16/24 Unknown History subcutaneous pen (Humalog KwikPen (U-100) Insulin) lurasidone 40 mg tablet 40 mg PO QHS MOOD 08/16/24 U nknown History potassium chloride 10 mEq 10 meq PO BID POTASSIUM 12/03 Unknown History capsule,extended release torsemide 20 mg tablet 20 mg PO BID HEART 08/16/24 Unknown History budesonide-formoterol HFA 160 1 puff inhalation DAILY COPD 09/16/24 Unknown History mcg-4.5 mcg/actuation aerosol inhaler (Symbicort) trazodone 100 mg tablet 100 mg PO QHS insomnia 09/16 Unknown History acetaminophen 500 mg tablet 1,000 mg PO TID PAIN 01/05 Unknown History lactulose 10 gram/15 mL oral 20 g PO DAILY 01/05/25 Un known History solution magnesium hydroxide 400 mg/5 mL 30 ml PO DAILY PRN con stipation 01/05/25 Unknown History oral suspension (Dulcolax (magnesium hydroxide)) mecobalamin (vitamin B12) 500 mcg 500 mcg PO DAILY Unknown History chewable tablet Allergy/AdvReac Type Severity Reaction Status Date / Time ibuprofen (From Nuprin) Allergy Unknown Verified 01/05/25 08:19 Family History Mother Diabetes Father Cirrhosis of liver Alcoholism Surgical History History of incision and drainage History of embolic filter insertion History of right inguinal hernia repair H/O colectomy History of repair of inguinal hernia History of bladder surgery History of tonsillectomy and adenoidectomy History of right inguinal hernia repair S/P AVR (aortic valve replacement) Social History housing: [place] [facility] Smoking Status: Former smoker how long ago did patient quit smoking: Quit ~ 20 yrs prior, smoked age 15 until quit ~ 2 ppd. alcohol intake: never substance use type: does not use ROS ROS Narrative Unable to fully obtain ROS due to mental status and cooperation however patient thinks maybe had a fever last night and had a little bit of a cough but no cough today, no shortness of breath or chest pain, some abdominal discomfort with no bowel movement for several days, maybe some burning on urination but denied any other acute complaints aside from some pain on his butt which is not new Vital Signs Vital Signs Vital Signs: 01/05/25 08:18 01/05/25 08:19 01/05/25 08:28 Temperature 97.4 F L Temperature Source Temporal Pulse Rate Respiratory Rate 16 16 Respiratory Effort Normal Non-Labored Blood Pressure Blood Pressure Mean Pulse Ox Oxygen Delivery Method 01/05/25 11:12 01/05/25 13:00 Temperature 98.6 F Temperature Source Oral Pulse Rate 66 49 L Respiratory Rate 18 Respiratory Effort Blood Pressure 144/92 H 136/66 H Blood Pressure Mean 109 89 Pulse Ox 98 Oxygen Delivery Method Room Air Physical Exam Narrative General: Patient awake, intermittently answers questions but has difficulty expanding upon any answers he gives HEENT: Normocephalic Eyes: Anicteric, normal conjunctiva, extraocular movements grossly intact Neck: Supple Respiratory: Clear to auscultation bilaterally, normal respiratory effort Cardiovascular: Irregular but normal rate GI: Soft, nontender, nondistended, no rebound, guarding, rigidity Extremities: No pitting edema Musculoskeletal: Moving all extremities Neuro: No overt focal neurological deficits Skin: N chronic changes in lower extremities Psych: Seems to attempt to be cooperative but very slow to respond and somewhat suspicious Results Lab / Micro Data 01/05/25 11:15 01/05/25 11:15 Labs: Laboratory Results - last 24 hr 01/05/25 10:47: Urine Color Yellow, Urine Clarity Sl. Cloudy, Urine pH 8.0, Ur Specific Kerrick 1.010, Urine Protein 100 H, Urine Glucose (UA) Normal, Urine Ketones Negative, Urine Occult Blood 150 H, Urine Nitrite Positive H, Urine Bilirubin Negative, Urine Urobilinogen Normal, Ur Leukocyte Esterase 500 H, Urine RBC 5-10 SEEN, Urine WBC 5-10 SEEN, Ur Squamous Epith Cells 0 SEEN, Triple Phos Crystals 1+, Urine Bacteria 2+, Urine Mucus 0 SEEN 01/05/25 11:15: WBC 4.7, RBC 4.65, Hgb 12.4 L, Hct 39.3 L, MCV 84.5, MCH 26.7 L, MCHC 31.6 L, RDW Std Deviation 47.2 H, RDW Coeff of Carlito 15.4 H, Plt Count 177, MPV 11.7, Immature Gran % (Auto) 0.000, Neut % (Auto) 54.3, Lymph % (Auto) 23.9, [place] % (Auto) 16.1 H, Eos % (Auto) 5.1 H, Baso % (Auto) 0.6, Absolute Neuts (auto) 2.6, Absolute Lymphs (auto) 1.13, Nucleated RBC % 0, Sodium 139, Potassium 4.4, Chloride 102, Carbon Dioxide 25.0, Anion Gap 12, BUN 30 H, C reatinine 1.50 H, Est GFR (MDRD) Non-Af 50 L, BUN/Creatinine Ratio 19.9, Glucose 104 H, Calcium 9.7 Imaging Radiology Impression Brain CT 01/05/25 08:51 IMPRESSION: CHRONIC CHANGES. NO ACUTE FINDINGS. Reading Location: [id number] Chest X-Ray 01/05/25 12:30 IMPRESSION: No acute abnormality is seen. Reading Location: [facility] Assessment & Plan Assessment/Plan (1) Altered mental status: (2) Urinary tract infection: (3) Acute kidney injury: PLAN: Plan # Reported mental status change suspect secondary to UTI associated with chronic indwelling Cohen catheter -UA suggestive of UTI -Continue empiric antibiotics while awaiting culture and sensitivity data -Supportive care - Patient did report some chronic suicidal thoughts with no plan, social work evaluated patient in ED and thought he may need psychiatric placement if there are still any further concerns once UTI is treated and VALENTIN improves #Type 2 diabetes mellitus -Glucose checks and sliding scale insulin -Will decrease long-acting insulin slightly given glucose only 104 in the ED, want to avoid hypoglycemia, can uptitrate as glucose tolerates # VALENTIN -All of patient's cell lines are out and has an elevated BUN, suspect patient might be slightly volume depleted -IV fluids -Avoid nephrotoxic agents -Repeat in the a.m. - Monitor I's and O's - Patient has chronic Cohen catheter - Will hold torsemide for now and monitor volume status # Constipation - Per patient he is constipated, will schedule bowel regimen - Can consider suppository or enema if bowel regimen and potential escalation of that regimen did not yield bowel movement - Abdomen soft without any alarm symptoms and patient with no nausea or vomiting at this time # History of bipolar disorder -Continue patient's home medications #hx dvt/pe/afib/bioprosthetic aortic valve - Continue home anticoagulation - Presently in sinus rhythm but with marked sinus arrhythmia, QTc 416 #Hypertension - Blood pressure 136/66, continue home antihypertensives #Hx COPD -Continue home inhalers -Incentive spirometer #PAWEL - Patient reports he does not wear CPAP and has not for a while #Chronic BPH with obstruction -Continue home medications #Dementia -Supportive care -Continue home medications #DVT ppx: Patient on chronic anticoagulation Allie Swann MD Charges/Coding Visit Charges Inpatient E&M: 32569 Init Hosp L2
[2025-01-05] MEDS: Ceftriaxone 1 GM/50 ML BAG IV (14:47)
[2025-01-05] MEDS: 0.9% Normal Saline (1000mL) 1,000 ML 1000 ML IV (14:47)
--- NOTE | 2025-01-05 15:07 | ED.RN ---
Pt adamantly refuses to wear hospital gown, due to earlier agitation, this RN did not insist on pt complying.
--- NOTE | 2025-01-05 15:21 | CHAPLAIN ---
Type of Pastoral Visit _x__ Initial Visit ___ Follow-up Visit ___ On-call Visit ___ General Patient Visit ___ Spiritual Assessment ___ Family Conference ___ Bereavement ___ Rapid Response ___ Code Blue ___ Other (describe below) Pastoral Care Referral From ___ Patient ___ Family _x__ Nurse ___ Physician ___ Drop Hammer Setter Up ___ Management Development Specialist ___ Other (describe below) Sacrament/Intervention _x__ Active listening ___ Anointing ___ Evangelical ___ Bereavement ___ Communion _x__ Aziza exploration ___ ___ Life review _x__ Prayer ___ Reconciliation ___ Sacrament of Sick _x__ Supportive presence ___ Wedding ___ Other (describe below) Pastoral Comments upon doing rounds in the ED this sheet metal superintendent noticed this patient who has been seen many times previously; RN verifys that patient has had a rough time emotionally, will be admitted, and could benefit from spiritual care support; entered room and offered presence and support; pt is open to discuss his concerns and discomfort which mostly come from his situation in an ECF; pt admits to loneliness and discontent overall; pt becomes anxious when the RN states that she will be putting in an IV; sat with patient throughout these procedures to help keep him still and calm; offered prayer for the patient and told him that this sheet metal superintendent will follow up with the assigned SW so she can see him tomorrow
[2025-01-05] MEDS: Ziprasidone IM 20 MG/ML VIAL IM (15:59)
[2025-01-05] MEDS: 0.9% Normal Saline (1000mL) 1,000 ML 100 ML IV (18:12)
[2025-01-05] MEDS: 0.9% Saline Lock 10 ML Syringe IV (18:12)
[2025-01-05] MEDS: Acetaminophen 325 MG Tablet 650 MG PO (18:16)
[2025-01-05] MEDS: Tamsulosin HCl 0.4 MG Capsule PO (20:58)
[2025-01-05] MEDS: traZODone 100 MG Tablet PO (20:58)
[2025-01-05] MEDS: Donepezil HCl 5 MG Tablet PO (20:58)
[2025-01-05] MEDS: Atorvastatin Calcium 20 MG Tablet PO (20:58)
[2025-01-05] MEDS: APIXABAN 5 MG TABLET PO (20:58)
[2025-01-05] MEDS: Senna/Docusate Sodium 1 Tablet 2 TABLET PO (20:58)
[2025-01-05] MEDS: MELATONIN 3 MG TABLET 6 MG PO (20:59)
[2025-01-05] MEDS: LURASIDONE HCL 40 MG TABLET PO (20:59)
[2025-01-05 21:27] LABS: Bedside Glucose 95 mg/dL (74-106)
[2025-01-05] MEDS: Insulin Glargine-YFGN 100 UNIT/ML Pen 15 UNIT SC (22:40)
[2025-01-05 23:08] LABS: Bedside Glucose 146 mg/dL (74-106)
[2025-01-06 03:52] VITALS: BP 143/74; PULSE 60; RESP 15; TEMP 36.4; O2SAT 97
[2025-01-06] MEDS: 0.9% Normal Saline (1000mL) 1,000 ML 100 ML IV (03:58)
[2025-01-06] MEDS: Acetaminophen 325 MG Tablet 650 MG PO (04:08)
[2025-01-06] MEDS: Gabapentin 100 MG Capsule 200 MG PO ×2 (05:58→15:24)
[2025-01-06 07:00] LABS: Bedside Glucose 119 mg/dL (74-106)
[2025-01-06 07:03] VITALS: O2SAT 96
--- NOTE | 2025-01-06 07:03 | CPS ---
Pt continues to refuse aerosols.
[2025-01-06 08:32] LABS: Absolute Lymphocyte Count 0.86 X10^3/uL (0.83-4.51); Absolute Neutrophil Count 2.4 X10^3/uL (2.0-7.7); Basophil# 0.04 X10^3/uL; Basophil% 0.9 % (0-1); Eosinophil# 0.22 X10^3/uL; Eosinophils% 5.2 % (0-5); Hematocrit 36.3 % (40-54); Hemoglobin 11.4 g/dL (13.0-16.5); Lymphocyte # 0.86 X10^3/ul (0.83-4.51); Lymphocyte % 20.3 % (19-41); Mean Corp Hgb Conc 31.4 g/dL (32-36); Mean Corpuscular Hgb 26.6 pg (27.0-32.0); Mean Corpuscular Volume 84.8 fL (80-94); Mean Platelet Vol. 11.5 fl (6.2-12.0); Monocyte# 0.68 X10^3/uL; NRBC Flagged by Analyzer 0 % (0-5); Neutrophil # 2.42 X10^3/uL (2.7-7.7); Neutrophil % 57.1 % (47-70); Platelet Count 157 K/mm3 (150-450); RBC Distribution Width CV 15.2 % (11.6-14.6); RBC Distribution Width SD 46.9 fl (35.1-43.9); Red Blood Count 4.28 M/mm3 (4.6-6.2); White Blood Count 4.2 K/mm3 (4.4-11.0)
--- NOTE | 2025-01-06 08:37 | CASEMGMT ---
Social Work SW spoke w/pt this morning regarding anticipated discharge plan. Pt states he has been at [facility] since October of 2023. He does not feel that the therapists there are good, they used to be good but a change was made. Pt states in fact he does not even get therapy there any more. We spoke about making a facility change, pt would like to make a change. SW asked pt about his family support, pt states he has an adopted son who does not visit. This son Hu Alvarez, is listed as POA, pt states he does not help him. SW spoke w/pt about whether or not he is suicidal, pt states he is just frustrated. Pt denies being suicidal at this time. Pt also informed SW that he was to get new glasses, and he doesn't know if his son is holding up the process or if it is [facility]. SW offered to call son to check on this. SW spoke w/physician, he states pt does not need to be here, will be sent back to [facility] today. Physician does not feel pt needs to stay here for several days for a new SNF, states that [facility] can work on a new SNF for pt. He states also pt does not need to go to psych from here. SW will follow up shortly. EMANUEL Duque
[2025-01-06 08:59] LABS: Anion Gap 10 (5-15); BUN 23 mg/dL (4-19); BUN/Creat Ratio 21.1 RATIO (10-20); Calcium,Total 8.9 mg/dL (7.6-11.0); Carbon Dioxide 23.1 mmol/L (21.0-32.0); Chloride 107 mmol/L (98-108); Creatinine, Serum 1.07 mg/dL (0.70-1.20); EST Glomerular Filtration Rate 75 (>60); Estimated Creatinine Clearance 87.17 ml/min (50-250); Glucose 101 mg/dL (70-99); Potassium 4.5 mmol/L (3.3-5.1); Sodium Level 139 mmol/L (133-145)
[2025-01-06 09:00] VITALS: BP 123/71; PULSE 64; RESP 16; TEMP 36.6; O2SAT 98
[2025-01-06] MEDS: Magnesium Citrate 300 ML PO (09:06)
[2025-01-06] MEDS: Ceftriaxone 1 GM/50 ML BAG IV (09:06)
[2025-01-06] MEDS: Lactulose 20 GM/30 ML UDC PO (09:07)
[2025-01-06] MEDS: APIXABAN 5 MG TABLET PO (09:07)
[2025-01-06] MEDS: Aspirin E.C. 81 MG Tablet PO (09:07)
[2025-01-06] MEDS: Senna/Docusate Sodium 1 Tablet 2 TABLET PO (09:07)
[2025-01-06] MEDS: amLODIPine 5 MG Tablet PO (09:08)
--- NOTE | 2025-01-06 09:55 | CASEMGMT ---
Social Work Physician spoke w/pt, he is okay w/returning to [facility]. SW called son, let him know pt will likely go back to [facility] today, he is agreeable to this. SW did let him know pt wants to make a facility change. Pt's son is aware, states that [facility] is where pt wanted to go, has been there for about 14 months. SW asked son if he can help pt explore other options when he returns to [facility]. Son states pt calls him once a week wanting to make a change, but actually wants to go home. Son states he cannot take pt home, cannot care for him. SW inquired w/son about visiting pt. Son states the last time he visited pt he got pneumonia and was really sick, was told by his doctor he is not allowed to visit. SW asked if he could visit outside, pt son states that in order to do that he would still have to walk through the facility. SW asked on about pt's glasses. He states pt's glasses are actually from [employer]([phone], the Dr is Dr Jameson Jose). He states that he has called and was told the glasses were delivered November 08 and adjusted December 05, but pt says he does not have them. Son has tried to follow up and has not been able to resolve this. SW spoke w/son also about pt's insurance. He states pt's Medicaid is still pending, the care home keeps sending the letters of what he needs to follow up on certified mail, and he can never brain picker the letters as he is not home when the post office is open. [facility] suggested he speak w/[facility] about holding the documents and he can just pick them up at the door. With pt's Medicaid pending, [facility] explained this would make it more difficult to change facilities at this time. Son states understanding. [facility] sent updates to [facility] via [employer] (app), asked them about glasses, asked if they can check on this, and that pt will return today. SW will continue to follow. EMANUEL Duque
--- NOTE | 2025-01-06 10:14 | CASEMGMT ---
Social Work [facility] did get back to [facility], pt can return today. Also, informed that pt has his glasses. called son to let him know, and that staff will call him once the d/c is set up for return to [facility]. EMANUEL Duque
--- NOTE | 2025-01-06 10:50 | PCM.TXEXTCAR ---
Diet Diet Order/Speech Therapy: INPATIENT Hospital Diet / Speech Therapy Order(s) 01/05/25 16:30 Diet: Cardiac - Heart Healthy Food consistency:: Regular Liquid Consistency:: Regular/Thin Dietary Modifications:: Consistent Carbohydrate Routine Orders/Code Status Code Status: DNRCC-A (No intubation) DC O2, CPAP, BIPAP needs Home O2 Discharge instructions: No Problem/Diagnosis (1) Altered mental status: Status: Acute Code(s): R41.82 - Altered mental status, unspecified (2) Urinary tract infection: Status: Acute Code(s): N39.0 - Urinary tract infection, site not specified (3) Acute kidney injury: Status: Acute Code(s): N17.9 - Acute kidney failure, unspecified Allergies/Procedures Done in Hospital Allergies ibuprofen (From Nuprin) Allergy (Verified 01/05/25 08:19) Unknown Procedures: None Type of Care/Length of Stay Estimated LOS: More Than 30 Days Type of Care Needed: Intermediate Rehab Potential: Fair Prognosis: Fair Additional Orders/Day of Discharge H&P will serve as current which was dated: 01/05/25 Day of Discharge: 01/06/25 Dietary and Speech Recommendations Dietitian Recommendations/Changes: Continue CCD/Cardiac diet to manage medical condtions. Discharge Plan Admission Admit Date/Time: 01/05/25 14:41 Primary Reason for Your Visit: Acute kidney injury, cystitis Attending Provider: Louie Howard Primary Care Provider: Kathleen Herzog Consulting Providers: Allie Swann Discharge Orders/Prescriptions Prescriptions: New torsemide 10 mg tablet 10 mg PO DAILY Qty: 1 0RF cefdinir 300 mg capsule 300 mg PO BID Qty: 14 0RF Continued tamsulosin 0.4 mg capsule 0.4 mg PO QHS aspirin 81 MG tablet,delayed release (DR/EC) 81 mg PO DAILY atorvastatin 20 mg tablet 20 mg PO QHS amlodipine 5 mg tablet 5 mg PO DAILY Eliquis 5 mg tablet 5 mg PO BID melatonin 3 mg tablet 6 mg PO QHS mecobalamin (vitamin B12) 500 mcg tablet,chewable 500 mcg PO DAILY lactulose 10 gram/15 mL solution 20 g PO DAILY magnesium hydroxide [Dulcolax (magnesium hydroxide)] 400 mg/5 mL suspension 30 ml PO DAILY PRN (Reason: constipation) acetaminophen 500 mg tablet 1,000 mg PO TID insulin glargine [Lantus Solostar U-100 Insulin] 100 unit/mL (3 mL) insulin pen 23 unit subcut QHS donepezil 5 mg tablet 5 mg PO QHS gabapentin 100 mg capsule 200 mg PO TID insulin lispro [Humalog KwikPen Insulin] 100 unit/mL insulin pen See Protocol subcut TID Protocol: 6. Sliding Scale Insulin Custom Condition: 151-200 Dose/Route: 2 UNITS Condition: 201-250 Dose/Route: 4 UNITS Condition: 251-300 Dose/Route: 6 UNITS Condition: 301-350 Dose/Route: 8 UNITS Condition: 351-400 Dose/Route: 10 UNITS Protocol Text: Custom Sliding Scale Rx Instructions: sliding scale lurasidone 40 mg tablet 40 mg PO QHS Rx Instructions: must administer with food (at least 350 calories) potassium chloride 10 mEq capsule, extended release 10 meq PO BID budesonide-formoterol [Symbicort] 160-4.5 mcg/actuation HFA aerosol inhaler 1 puff inhalation DAILY trazodone 100 mg tablet 100 mg PO QHS Discontinued torsemide 20 mg tablet 20 mg PO BID Referrals / Follow Up: Kathleen Herzog MD [Primary Care Provider] - Disposition Disposition (needs filled in before D/C Order can be placed): NonSkilled NH/Intermed Care
--- NOTE | 2025-01-06 10:56 | DS.PCM_ITS ---
Providers Date of Admission: 01/05/25 Date of Discharge: 01/06/25 Primary Care Physician: Dr. Kathleen Herzog MD Reason For Visit: MENTAL STATUS CHANGE WITH UTI AND VALENTIN Diagnosis Discharge Diagnosis (1) Altered mental status: Status: Acute Code(s): R41.82 - Altered mental status, unspecified (2) Urinary tract infection: Status: Acute Code(s): N39.0 - Urinary tract infection, site not specified (3) Acute kidney injury: Status: Acute Code(s): N17.9 - Acute kidney failure, unspecified Plan 1. Acute cystitis #2 bipolar disorder with behavioral disturbances #3 hyperlipidemia #4 chronic use of anticoagulants #5 type 2 diabetes Medications at Discharge Home Medications aspirin 81 mg tablet,delayed release 81 mg PO DAILY AFIB 03/17/19 amlodipine 5 mg tablet 5 mg PO DAILY AFIB 10/28/23 apixaban 5 mg tablet (Eliquis) 5 mg PO BID AFIB 10/28/23 atorvastatin 20 mg tablet 20 mg PO QHS HYPERLIPIDEMIA 10/28/23 melatonin 3 mg tablet 6 mg PO QHS INSOMNIA 10/28/23 tamsulosin 0.4 mg capsule 0.4 mg PO QHS PROSTATIC HYPERPLASIA 12/22/23 insulin glargine 100 unit/mL (3 mL) subcutaneous pen (Lantus Solostar U-100 Insulin) 23 unit subcut QHS DIABETIC 06/01/24 donepezil 5 mg tablet 5 mg PO QHS MEMORY 08/16/24 gabapentin 100 mg capsule 200 mg PO TID NEUROPATHY 08/16/24 insulin lispro 100 unit/mL subcutaneous pen (Humalog KwikPen (U-100) Insulin) See Protocol subcut TID DIABETIC 08/16/24 lurasidone 40 mg tablet 40 mg PO QHS MOOD 08/16/24 potassium chloride 10 mEq capsule,extended release 10 meq PO BID POTASSIUM 08/16/24 budesonide-formoterol HFA 160 mcg-4.5 mcg/actuation aerosol inhaler (Symbicort) 1 puff inhalation DAILY COPD 09/16/24 trazodone 100 mg tablet 100 mg PO QHS insomnia 09/16/24 acetaminophen 500 mg tablet 1,000 mg PO TID PAIN 01/05/25 lactulose 10 gram/15 mL oral solution 20 g PO DAILY 01/05/25 magnesium hydroxide 400 mg/5 mL oral suspension (Dulcolax (magnesium hydroxide)) 30 ml PO DAILY PRN constipation 01/05/25 mecobalamin (vitamin B12) 500 mcg chewable tablet 500 mcg PO DAILY 01/05/25 cefdinir 300 mg capsule 300 mg PO BID #14 caps 01/06/25 torsemide 10 mg tablet 10 mg PO DAILY #1 TAB 01/06/25 Hospital Course Operations None Procedures None Summary of Care Provided Minutes Spent on Discharge: 31 Hospital Course: This 69-year-old white male who is a chronic resident of a local nursing facility under intermediate care, was seen in the emergency room at [facility] with complaints of mental status change with agitation, he had been striking out at the staff at his retirement. Patient has a history of bipolar disorder and is on multiple medications. Workup in the emergency room included a CBC which was remarkable for hemoglobin of 12.4, chemistry profile was remarkable for a creatinine of 1.5 and a BUN of 30. It appeared that the patient's normal creatinine was 0.92 in October 2024. Patient's urinalysis showed positive nitrites, 5-10 RBCs, 5-10 WBCs and +2 bacteria. Patient was admitted to [place] [address], placed on IV antibiotics, patient's behavior improved and he was felt to be stable for discharge back to his intermediate facility. On 01/06/2025, patient was seen and examined: On examination he appeared in good health and spirits. Vital signs as documented. Skin warm and dry and without overt rashes. Neck without JVD, neck was supple, trachea midline, thyroid was normal. Lungs clear bilaterally, normal air movement was noted. Heart exam notable for regular rhythm, normal sounds and absence of murmurs, rubs or gallops. Abdomen unremarkable and without evidence of organomegaly, masses, or abdominal aortic enlargement. Bowel sounds are present, abdomen is not distended. Extremities nonedematous, no cyanosis was noted, no clubbing was noted. Neuro: Cranial nerves II through XII are grossly intact, no focal motor deficits were noted, sensation to light touch and pinprick intact, motor exam 5/5 throughout. Psych: Patient is alert and oriented x3, he does not appear anxious or depressed, he does not appear agitated. Patient appears stable for transfer back to his intermediate care facility on 01/06/2025. Weight / BMI Weight Weight: 113.171 kg Body Mass Index (BMI) 32.0 ABG / Lab / Microbiology Data 01/06/25 08:20 01/06/25 08:20 Laboratory: Laboratory Results - last 24 hr 01/05/25 10:47: Urine RBC 5-10 SEEN, Urine WBC 5-10 SEEN, Ur Squamous Epith Cells 0 SEEN, Triple Phos Crystals 1+, Urine Bacteria 2+, Urine Mucus 0 SEEN 01/05/25 11:15: WBC 4.7, RBC 4.65, Hgb 12.4 L, Hct 39.3 L, MCV 84.5, MCH 26.7 L, MCHC 31.6 L, RDW Std Deviation 47.2 H, RDW Coeff of Carlito 15.4 H, Plt Count 177, MPV 11.7, Immature Gran % (Auto) 0.000, Neut % (Auto) 54.3, Lymph % (Auto) 23.9, [place] % (Auto) 16.1 H, Eos % (Auto) 5.1 H, Baso % (Auto) 0.6, Absolute Neuts (auto) 2.6, Absolute Lymphs (auto) 1.13, Nucleated RBC % 0, Sodium 139, Potassium 4.4, Chloride 102, Carbon Dioxide 25.0, Anion Gap 12, BUN 30 H, C reatinine 1.50 H, Est GFR (MDRD) Non-Af 50 L, BUN/Creatinine Ratio 19.9, Glucose 104 H, Calcium 9.7 01/05/25 17:03: POC Glucose 95 01/05/25 22:49: POC Glucose 146 H 01/06/25 06:42: POC Glucose 119 H 01/06/25 08:20: WBC 4.2 L, RBC 4.28 L, Hgb 11.4 L, Hct 36.3 L, MCV 84.8, MCH 26.6 L, MCHC 31.4 L, RDW Std Deviation 46.9 H, RDW Coeff of Carlito 15.2 H, Plt Count 157, MPV 11.5, Immature Gran % (Auto) 0.500, Neut % (Auto) 57.1, Lymph % (Auto) 20.3, [place] % (Auto) 16.0 H, Eos % (Auto) 5.2 H, Baso % (Auto) 0.9, Absolute Neuts (auto) 2.4, Absolute Lymphs (auto) 0.86, Nucleated RBC % 0, Sodium 139, Potassium 4.5, Chloride 107, Carbon Dioxide 23.1, Anion Gap 10, BUN 23 H, Creatinine 1.07, Estim Creat Clear Calc 87.17, Est GFR (MDRD) Non-Af 75, B UN/Creatinine Ratio 21.1 H, Glucose 101 H, Calcium 8.9, TSH 2.490 Microbiology: Microbiology 01/05/25 10:47 Urine Catheter - Cohen Urine Culture - Final Pseudomonas aeruginosa Proteus mirabilis Radiography Diagnostic Testing: Radiology Impression Brain CT 01/05/25 08:51 IMPRESSION: CHRONIC CHANGES. NO ACUTE FINDINGS. Reading Location: [facility] Chest X-Ray 01/05/25 12:30 IMPRESSION: No acute abnormality is seen. Reading Location: [facility] D/C Instructions DC O2, CPAP, BIPAP Needs Home O2 Discharge instructions: No Meaningful Use Info Meaningful Use Meaningful Use Diagnoses (Choose all that apply): None applicable Ischemic Stroke Statin Dosing Therapy Reference: STATIN DOSE THERAPY REFERENCE: * Patients > 75 years receive moderate or high dose statin therapy. * Patients 75 years or YOUNGER should receive HIGH intensity statin dose unless contraindicated. You will be required to document reason for non-treatment if statin daily dose does not meet guidelines. HIGH DOSE STATIN THERAPY DAILY Atorvastatin > than or = to 40 mg Rosuvastatin > than or = to 20 mg Amlodipine + Atorvastatin > than or = to 2.5/40 mg Ezetimibe + Simvastatin 10/80 mg Simvastatin 80mg Discharge Plan Admission Admit Date/Time: 01/05/25 14:41 Primary Reason for Your Visit: Acute kidney injury, cystitis Attending Provider: Louie Howard Primary Care Provider: Kathleen Herzog Consulting Providers: Allie Swann Discharge Orders/Prescriptions Prescriptions: New torsemide 10 mg tablet 10 mg PO DAILY Qty: 1 0RF cefdinir 300 mg capsule 300 mg PO BID Qty: 14 0RF Continued tamsulosin 0.4 mg capsule 0.4 mg PO QHS aspirin 81 MG tablet,delayed release (DR/EC) 81 mg PO DAILY atorvastatin 20 mg tablet 20 mg PO QHS amlodipine 5 mg tablet 5 mg PO DAILY Eliquis 5 mg tablet 5 mg PO BID melatonin 3 mg tablet 6 mg PO QHS mecobalamin (vitamin B12) 500 mcg tablet,chewable 500 mcg PO DAILY lactulose 10 gram/15 mL solution 20 g PO DAILY magnesium hydroxide [Dulcolax (magnesium hydroxide)] 400 mg/5 mL suspension 30 ml PO DAILY PRN (Reason: constipation) acetaminophen 500 mg tablet 1,000 mg PO TID insulin glargine [Lantus Solostar U-100 Insulin] 100 unit/mL (3 mL) insulin pen 23 unit subcut QHS donepezil 5 mg tablet 5 mg PO QHS gabapentin 100 mg capsule 200 mg PO TID insulin lispro [Humalog KwikPen Insulin] 100 unit/mL insulin pen See Protocol subcut TID Protocol: 6. Sliding Scale Insulin Custom Condition: 151-200 Dose/Route: 2 UNITS Condition: 201-250 Dose/Route: 4 UNITS Condition: 251-300 Dose/Route: 6 UNITS Condition: 301-350 Dose/Route: 8 UNITS Condition: 351-400 Dose/Route: 10 UNITS Protocol Text: Custom Sliding Scale Rx Instructions: sliding scale lurasidone 40 mg tablet 40 mg PO QHS Rx Instructions: must administer with food (at least 350 calories) potassium chloride 10 mEq capsule, extended release 10 meq PO BID budesonide-formoterol [Symbicort] 160-4.5 mcg/actuation HFA aerosol inhaler 1 puff inhalation DAILY trazodone 100 mg tablet 100 mg PO QHS Discontinued torsemide 20 mg tablet 20 mg PO BID Referrals / Follow Up: Kathleen Herzog MD [Primary Care Provider] - Disposition Disposition (needs filled in before D/C Order can be placed): NonSkilled NH/Intermed Care Charges/Coding Visit Charges Inpatient E&M: 34643 Disch Hosp >30min
[2025-01-06 12:05] LABS: Bedside Glucose 123 mg/dL (74-106)
[2025-01-06 16:00] VITALS: BP 122/82; PULSE 71; RESP 16; TEMP 36.6; O2SAT 100
== END 2025-01-06 17:51 | disposition intermediate care facility (04) | DRG 699 ==
LOC: ED 14:45 → MS3 16:12
PROVIDERS: Admitting Provider Internal Medicine; Emergency Provider Emergency Medicine; PCP Internal Medicine; Referring Provider Internal Medicine; Visit Provider Internal Medicine
DX: T83.511A Infection and inflammatory reaction due to indwelling urethral catheter, initial encounter (principal); N17.9 Acute kidney failure, unspecified; F03.911 Unspecified dementia, unspecified severity, with agitation; F03.918 Unspecified dementia, unspecified severity, with other behavioral disturbance; F03.93 Unspecified dementia, unspecified severity, with mood disturbance; F03.94 Unspecified dementia, unspecified severity, with anxiety; N13.8 Other obstructive and reflux uropathy; R45.851 Suicidal ideations; N30.00 Acute cystitis without hematuria; Z66 Do not resuscitate; I48.91 Unspecified atrial fibrillation; E86.9 Volume depletion, unspecified; E11.42 Type 2 diabetes mellitus with diabetic polyneuropathy; J44.9 Chronic obstructive pulmonary disease, unspecified; F31.9 Bipolar disorder, unspecified; I10 Essential (primary) hypertension; Z95.2 Presence of prosthetic heart valve; I25.2 Old myocardial infarction; Z79.4 Long term (current) use of insulin; G47.33 Obstructive sleep apnea (adult) (pediatric); I35.0 Nonrheumatic aortic (valve) stenosis; K59.00 Constipation, unspecified; E78.5 Hyperlipidemia, unspecified; I87.2 Venous insufficiency (chronic) (peripheral); N40.1 Benign prostatic hyperplasia with lower urinary tract symptoms; Z79.82 Long term (current) use of aspirin; Z86.14 Personal history of Methicillin resistant Staphylococcus aureus infection; Z79.01 Long term (current) use of anticoagulants; Z90.49 Acquired absence of other specified parts of digestive tract; Z86.718 Personal history of other venous thrombosis and embolism; Z86.711 Personal history of pulmonary embolism; Z79.899 Other long term (current) drug therapy; Z87.891 Personal history of nicotine dependence
CPT/HCPCS: 11042; 70450; 71045; 80048; 81001; 82962; 84443; 85025; 87077; 87086; 87088; 87186; 93005; 97162; 97802; 99285; A4216; J3486

== ENCOUNTER 2025-01-24 08:55 | Outpatient (RCR) | payer MEDICARE, SELFPAY ==
[2025-01-24 09:48] VITALS: BP 135/71; PULSE 56; RESP 16; TEMP 35.9
--- NOTE | 2025-01-24 12:00 | PCM.WC.PN ---
History of Present Illness Date of Service: 01/24/25 Chief Complaint: Right buttock ulceration History of Wound: Patient is 69-year-old male chronic ulceration to the lateral right leg stable with no sign of infection. Progress of Wound: Improving right leg ulceration Subjective Subjective Patient is a 69-year-old diabetic male presenting to wound care center today for follow-up evaluation of full-thickness wound to lateral aspect of the right leg. Patient has been compliant with dressing changes at the nursing facility. He has not been very active and keeps mostly to himself in his room with elevation of the bilateral legs. His blood sugars well-controlled. Denies trauma. Denies constitutional symptoms. No other pedal complaints at this time. Objective Data Objective Data Vital Signs: Vital Signs Temp Pulse Resp BP 96.7 F L 56 L 16 135/71 H 01/24/25 09:48 01/24/25 09:48 01/24/25 09:48 01/24/25 09:48 Physical Exam Narrative Vascular: DP and PT pulses are palpable to the right lower extremity. Nonpitting edema appreciated to the right lower extremity. Skin temperature gradient is warm to warm from proximal ankles to distal digit. No focal increase appreciated. Evidence of varicosities appreciated left lower extremity. Neurological: Light touch intact. Patient response to painful stimuli. Protective sensation is diminished. Dermatological: Full-thickness ulceration to the lateral aspect of the right leg measuring 3.7 x 1.4 x 0.1 cm. wound base is granular. No malodor or probe to bone. No sign of infection. Excisional debridement of the right leg lateral aspect full-thickness ulceration down to and including subcutaneous tissue with a number 5 mm dermal curette without incident. Predebridement measurement was 3.5 x 1.2 x 0.1 cm. Postdebridement measurement was 3.7 x 1.4 x 0.1 cm. Musculoskeletal: No pain to palpation to full-thickness ulceration. No pain with calf compression. Debridement Note Debridement Note Debridement Free Text: Excisional debridement of the right leg lateral aspect full-thickness ulceration down to and including subcutaneous tissue with a number 5 mm dermal curette without incident. Predebridement measurement was 3.5 x 1.2 x 0.1 cm. Postdebridement measurement was 3.7 x 1.4 x 0.1 cm. Post-Debridement Measurements and Additional Note: Post-Debridement Measurements/Treatment - Nurse 1 - General Ulcer Assessment Start: 01/24/25 09:47 Freq: Status: Active Protocol: GALE Activity Type Activity Date Activity User E-sign Co-sign Detail Recorded Client Recorded Date Recorded By Document 01/24/25 09:48 ZAKIA [id number] 01/24/25 09:58 01/24/25 09:48 - Today's Visit Information Type of service Follow-up Visit (Physician/SULFONATION EQUIPMENT OPERATOR ) Arrival Mode Wheelchair Transfer Assistance Manual Transfer Assist (Other) 1 Patient Identification Verified (Name & Yes ) Safety Precautions Fall Prevention Vital Signs Temperature (97.8 F-99.1 F) 96.7 F L Temperature Source Temporal Pulse Rate (60-100) 56 L Pulse Location Monitor Respiratory Rate (12-18) 16 Respiratory rate source Observation Blood Pressure (90/60-120/80) 135/71 H Blood Pressure Mean (mm Hg) 92 Source Monitor Position Sitting Blood Pressure Location Right Arm History Since Last Visit- (Skip if this is Patient's initial visit) Have you changed medications since your No last visit? Any new allergies or adverse reactions No Had a fall/change in ADL's that may No increase risk of falls Signs or symptoms of abuse and/or No neglect since last visit Have you been in the hospital since your No last visit? Has dressing in place as prescribed Yes Has compression in place as prescribed Yes Has offloadiing in place as prescribed N/A Experienced any changes in pain level or No management Pain Scale: 0-10 Numeric Is Patient Pain Free? Yes - Nurse 1 - General Ulcer Measurement Start: 01/24/25 09:47 Freq: Status: Active Protocol: Activity Type Activity Date Activity User E-sign Co-sign Detail Recorded Client Recorded Date Recorded By Document 01/24/25 09:48 ZAKIA [id number] 01/24/25 09:58 01/24/25 09:48 Wound Center Nurse 1 #5 RT LAT LE POST-OP -Current Size (cm) - Length 3.5 -Current Size (cm) - Width 1.4 -Current Size (cm) - Depth 0.1 -Total Square Cm 4.90 -Photo Taken Yes -Exudate Amt Small -Exudate Type Serosanguineous -Wound Margin Flat & Intact -Granulation Amt Large (67-100%) -Granulation Quality Red -Slough/Fibrin Yes -Necrosis Amt Small (1-33%) -Necrotic Tissue Type Adherent Slough -Structure Exposed N/A -Texture (Mariza-wound Skin Appearance) No Abnormality -Moisture (Mariza-wound Skin Appearance) No Abnormality -Color (Mariza-wound Skin Appearance) No Abnormality -Ulcer Cleansing Soap and Water -Foul Odor after Cleansing No -Anesthetic Used 5% Lidocaine Gel Right Calf (cm) 34.9 Right Ankle (cm) 24 WC - Nurse 2 - General Ulcer CM Notes Start: 01/24/25 09:47 Freq: Status: Active Protocol: Activity Type Activity Date Activity User E-sign Co-sign Detail Recorded Client Recorded Date Recorded By Document 01/24/25 10:09 JF [id number] 01/24/25 10:09 TALI 01/24/25 10:09 Wound Center Nurse 2 #5 RT LAT LE POST-OP -Time 10:09 -Correct Patient Yes -Correct Side, Site, Position Yes -Correct Procedure Yes -Procedure Performed Yes -Type of Procedure Debridement -Clinical Debridement Subcutaneous -Tissue Removed Subcutaneous -Post Debridement (cm) - Length 3.7 -Post Debridement (cm) - Width 1.4 -Post Debridement (cm) - Depth 0.1 -Total Square (Post) (cm) 5.18 -Area of Debridement (cm) - Length 3.7 -Area of Debridement (cm) - Width 1.4 -Total Square (Area) (cm) 5.18 -Tunneling No -Undermining/Tunneling No -Circular Undermining No -Wound/Ulcer Outcome Not Healed -Ulcer Cleansing Rinsed/ Irrigated with Saline -Foul Odor after Cleansing No -Bioengineered Tissue No -Bleeding Controlled with Pressure -Treatment Response Procedure Tolerated Well -Offloading No -Debridement - Subq, 1st 20sq cm Yes Pain Scale: 0-10 Numeric Is Patient Pain Free? Yes WC - Nurse 3 - General Ulcer D/C NN Start: 01/24/25 09:47 Freq: Status: Active Protocol: Activity Type Activity Date Activity User E-sign Co-sign Detail Recorded Client Recorded Date Recorded By Document 01/24/25 10:19 KW [id number] 01/24/25 10:20 KW 01/24/25 10:19 Wound Care Center Nurse 3 #5 RT LAT LE POST-OP -Primary Dressing Applied Promogran Lalit Matter -Primary Dressing Covered/Secured with Dry Gauze & Roll Gauze, Secured with Tape -Promogran Lalit Matter 1 BLE -Compression Wrap Celso Wrap Pain Scale: 0-10 Numeric Is Patient Pain Free? Yes WC - Visit Discharge Discharge Condition Stable Ambulatory Status Wheelchair Medication Reconcilliation completed & No provided to patient/care provider Clinical Summary of Care Provided Yes Assessment/Plan Assessment/Plan (1) Non-pressure chronic ulcer of 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: CODE(S): L97.212 - Non-pressure chronic ulcer of 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 PLAN: Patient was examined and evaluated. All findings were discussed with the patient. All questions were answered to the patient's satisfaction. Excisional debridement of the right leg lateral aspect full-thickness ulceration down to and including subcutaneous tissue with a number 5 mm dermal curette without incident. Predebridement measurement was 3.5 x 1.2 x 0.1 cm. Postdebridement measurement was 3.7 x 1.4 x 0.1 cm. The right lower extremities were cleaned and patted dry. Moist lalit was applied followed by dry sterile dressing and Tubigrip. Encouraged ambulation. Educated the patient continue rest and elevate his bilateral lower extremity. Educated patient on strict blood sugar control. Follow-up at the wound care center with Dr. Shannon in 1 week.
--- NOTE | 2025-01-24 14:27 | WC ---
PHOTO 01/24/25 RIGHT LEG
== END 2025-02-08 23:59 | disposition home or self-care (01) ==
LOC: WC 08:55
PROVIDERS: PCP Internal Medicine; Referring Provider Surgery; Visit Provider Podiatrist Foot & Ankle Surgery
DX: E11.622 Type 2 diabetes mellitus with other skin ulcer (principal); L97.212 Non-pressure chronic ulcer of 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
CPT/HCPCS: 11042

== ENCOUNTER 2025-03-07 09:00 | Outpatient (RCR) | payer MEDICARE, SELFPAY ==
[2025-02-14 09:10] VITALS: BP 127/77; PULSE 64; RESP 18; TEMP 36.6
--- NOTE | 2025-02-14 09:41 | PCM.WC.PN ---
History of Present Illness Date of Service: 02/14/25 Chief Complaint: Right buttock ulceration History of Wound: Patient is 69-year-old male chronic ulceration to the lateral right leg stable with no sign of infection. Progress of Wound: Improving right leg ulceration Subjective Subjective Mr. Gutierrez is a 69-year-old diabetic male presenting to wound care center today for follow-up evaluation of right lower extremity lateral full-thickness wound. Patient states that his celso wraps have been coming off when he returns to facility not being donned as ordered. He is frustrated with [facility]. Overall his blood sugars well-controlled. He denies any new onset of falls. Denies trauma. Denies constitutional symptoms. No other pedal complaints at this time. Objective Data Objective Data Vital Signs: Vital Signs Temp Pulse Resp BP O2 Del Method 98 F 64 18 127/77 H Room Air 02/14/25 09:10 02/14/25 09:10 02/14/25 09:10 02/14/25 09:10 02/14/25 09:10 Oxygen Delivery Method Room Air Physical Exam Narrative Vascular: DP and PT pulses are palpable to the right lower extremity. Nonpitting edema appreciated to the right lower extremity. Skin temperature gradient is warm to warm from proximal ankles to distal digit. No focal increase appreciated. Evidence of varicosities appreciated left lower extremity. Neurological: Light touch intact. Patient response to painful stimuli. Protective sensation is diminished. Dermatological: Full-thickness ulceration to the lateral aspect of the right leg measuring 3.4 x 1.5 x 0.1 cm. Wound base is granular. No malodor or probe to bone. No sign of infection. Excisional debridement of the right leg lateral aspect full-thickness ulceration down to and including subcutaneous tissue with a number 5 mm dermal curette without incident. Predebridement measurement was 3.3 x 1.3 x 0.1 cm. Postdebridement measurement was 3.4 x 1.5 x 0.1 cm. Musculoskeletal: No pain to palpation to full-thickness ulceration. No pain with calf compression. Debridement Note Debridement Note Debridement Free Text: Excisional debridement of the right leg lateral aspect full-thickness ulceration down to and including subcutaneous tissue with a number 5 mm dermal curette without incident. Predebridement measurement was 3.3 x 1.3 x 0.1 cm. Postdebridement measurement was 3.4 x 1.5 x 0.1 cm. Post-Debridement Measurements and Additional Note: Post-Debridement Measurements/Treatment - Nurse 1 - General Ulcer Assessment Start: 02/14/25 09:10 Freq: Status: Active Protocol: GALE Activity Type Activity Date Activity User E-sign Co-sign Detail Recorded Client Recorded Date Recorded By Document 02/14/25 09:10 ID [id number] 02/14/25 09:15 ID 02/14/25 09:10 - Today's Visit Information Type of service Follow-up Visit (Physician/TANBARK PEELER ) Arrival Mode Ambulatory Accompanied by self Patient Identification Verified (Name & Yes ) Safety Precautions Fall Prevention Vital Signs Temperature (97.8 F-99.1 F) 98 F Temperature Source Temporal Pulse Rate (60-100) 64 Pulse Location Monitor Respiratory Rate (12-18) 18 Respiratory rate source Monitor Oxygen Delivery Method Room Air Blood Pressure (90/60-120/80) 127/77 H Blood Pressure Mean (mm Hg) 93 Source Monitor Position Semi-Fowlers Blood Pressure Location Left Arm History Since Last Visit- (Skip if this is Patient's initial visit) Has dressing in place as prescribed Yes Has compression in place as prescribed Yes Has offloadiing in place as prescribed Yes Experienced any changes in pain level or Yes management Left Footwear Regular Shoe Right Footwear Regular Shoe Pain Scale: 0-10 Numeric Is Patient Pain Free? Yes - Nurse 1 - General Ulcer Measurement Start: 02/14/25 09:10 Freq: Status: Active Protocol: Activity Type Activity Date Activity User E-sign Co-sign Detail Recorded Client Recorded Date Recorded By Document 02/14/25 09:10 ID [id number] 02/14/25 09:15 ID 02/14/25 09:10 Wound Center Nurse 1 #5 RT LAT LE POST-OP -Current Size (cm) - Length 3.5 -Current Size (cm) - Width 1.6 -Current Size (cm) - Depth 0.1 -Total Square Cm 5.60 -Date of Last Picture (Recall this 02/14/25 field) -Photo Taken Yes -Tunneling No -Undermining/Tunneling No -Circular Undermining No -Exudate Amt Medium -Exudate Type Serous -Wound Margin Flat & Intact -Granulation Amt Large (67-100%) -Granulation Quality [place],Red -Necrosis Amt None Present (0 %) -Texture (Mariza-wound Skin Appearance) Assessed -Moisture (Mariza-wound Skin Appearance) Assessed -Color (Mariza-wound Skin Appearance) Assessed -Temperature (Mariza-wound Skin No Abnormality Appearance) (Pt Warm) -Tenderness on Palpation (Mariza-wound No Skin Appearance) -Ulcer Cleansing Not Cleansed -Foul Odor after Cleansing No -Anesthetic Used 5% Lidocaine Gel Lower Limb Edema Present NA WC - Nurse 2 - General Ulcer CM Notes Start: 02/14/25 09:10 Freq: Status: Active Protocol: Activity Type Activity Date Activity User E-sign Co-sign Detail Recorded Client Recorded Date Recorded By Document 02/14/25 09:27 TALI [id number] 02/14/25 09:29 TALI 02/14/25 09:27 Wound Center Nurse 2 #5 RT LAT LE POST-OP -Time 09:27 -Correct Patient Yes -Correct Side, Site, Position Yes -Correct Procedure Yes -Procedure Performed Yes -Type of Procedure Debridement -Clinical Debridement Subcutaneous -Tissue Removed Subcutaneous -Post Debridement (cm) - Length 3.4 -Post Debridement (cm) - Width 1.5 -Post Debridement (cm) - Depth 0.1 -Total Square (Post) (cm) 5.10 -Area of Debridement (cm) - Length 3.4 -Area of Debridement (cm) - Width 1.5 -Total Square (Area) (cm) 5.10 -Tunneling No -Undermining/Tunneling No -Circular Undermining No -Wound/Ulcer Outcome Not Healed -Ulcer Cleansing Rinsed/ Irrigated with Saline -Foul Odor after Cleansing No -Bioengineered Tissue No -Bleeding Controlled with Pressure -Treatment Response Procedure Tolerated Well -Offloading No -Debridement - Subq, 1st 20sq cm Yes Pain Scale: 0-10 Numeric Is Patient Pain Free? Yes Assessment/Plan Assessment/Plan (1) Non-pressure chronic ulcer of 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: CODE(S): L97.212 - Non-pressure chronic ulcer of 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 PLAN: Patient was examined and evaluated. All findings were discussed with the patient. All questions were answered to the patient's satisfaction. Excisional debridement of the right leg lateral aspect full-thickness ulceration down to and including subcutaneous tissue with a number 5 mm dermal curette without incident. Predebridement measurement was 3.3 x 1.3 x 0.1 cm. Postdebridement measurement was 3.4 x 1.5 x 0.1 cm. The right lower extremities were cleaned and patted dry. Moist lalit was applied followed by dry sterile dressing and Celso wrap. Encouraged ambulation. Educated the patient continue rest and elevate his bilateral lower extremity. Educated patient on strict blood sugar control. I did educate the patient that he needs to make sure that the compression wraps are staying on in between dressing changes and he is to have a voice at the residential to make sure that the wraps are being placed as ordered. Follow-up at the wound care center with Dr. Shannon in 1 week.
--- NOTE | 2025-02-15 09:53 | WC ---
PHOTO-RIGHT LEG CLUSTER 02/14/25
[2025-02-28 09:21] VITALS: BP 129/79; PULSE 55; RESP 18; TEMP 35.7
--- NOTE | 2025-02-28 12:33 | PCM.WC.PN ---
History of Present Illness Date of Service: 02/28/25 Chief Complaint: Right buttock ulceration History of Wound: Patient is 69-year-old male chronic ulceration to the lateral right leg stable with no sign of infection. Progress of Wound: Chronic slow healing right leg full-thickness wound. Subjective Subjective Patient is a 69-year-old male presenting to wound care center today follow-up evaluation of right lower extremity lateral full-thickness wound. Patient is residing in a correction facility getting dressing changes. However patient keeps complaining that the facility is not using the Celso wrap's to the bilateral lower extremity as ordered. He has been very frustrated with his care. He is elevating as discussed. He denies trauma. Denies constitutional symptoms. No other pedal complaints. His blood sugars well-controlled. Objective Data Objective Data Vital Signs: Vital Signs Temp Pulse Resp BP O2 Del Method 96.2 F L 55 L 18 129/79 H Room Air 02/28/25 09:21 02/28/25 09:21 02/28/25 09:21 02/28/25 09:21 02/28/25 09:21 Oxygen Delivery Method Room Air Physical Exam Narrative Vascular: DP and PT pulses are palpable to the right lower extremity. Nonpitting edema appreciated to the right lower extremity. Skin temperature gradient is warm to warm from proximal ankles to distal digit. No focal increase appreciated. Evidence of varicosities appreciated left lower extremity. Neurological: Light touch intact. Patient response to painful stimuli. Protective sensation is diminished. Dermatological: Full-thickness ulceration to the lateral aspect of the right leg measuring 7.9 x 1.7 x 0.2 cm. Wound base is granular. No malodor or probe to bone. No sign of infection. Excisional debridement of the right leg lateral aspect full-thickness ulceration down to and including subcutaneous tissue with a number 5 mm dermal curette without incident. Predebridement measurement was 7.7 x 1.5 x 0.1 cm. Postdebridement measurement was 7.9 x 1.7 x 0.2 cm. Musculoskeletal: No pain to palpation to full-thickness ulceration. No pain with calf compression. Debridement Note Debridement Note Debridement Free Text: Excisional debridement of the right leg lateral aspect full-thickness ulceration down to and including subcutaneous tissue with a number 5 mm dermal curette without incident. Predebridement measurement was 7.7 x 1.5 x 0.1 cm. Postdebridement measurement was 7.9 x 1.7 x 0.2 cm. Post-Debridement Measurements and Additional Note: Post-Debridement Measurements/Treatment WC - Nurse 1 - General Ulcer Assessment Start: 02/14/25 09:10 Freq: Status: Active Protocol: GALE Activity Type Activity Date Activity User E-sign Co-sign Detail Recorded Client Recorded Date Recorded By Document 02/14/25 09:10 MT [id number] 02/14/25 09:15 MT Document 02/28/25 09:21 KW [id number] 02/28/25 09:26 KW 02/14/25 02/28/25 09:10 09:21 WC - Today's Visit Information Type of service Follow-up Visit Follow-up Visit (Physician/FORESTRY EXTENSION SPECIALIST (Physician/FORESTRY EXTENSION SPECIALIST ) ) Arrival Mode Ambulatory Ambulatory Accompanied by self Patient Identification Verified (Name & Yes Yes ) Safety Precautions Fall Prevention Vital Signs Temperature (97.8 F-99.1 F) 98 F 96.2 F L Temperature Source Temporal Temporal Pulse Rate (60-100) 64 55 L Pulse Location Monitor Monitor Respiratory Rate (12-18) 18 18 Respiratory rate source Monitor Monitor Oxygen Delivery Method Room Air Room Air Blood Pressure (90/60-120/80) 127/77 H 129/79 H Blood Pressure Mean (mm Hg) 93 95 Source Monitor Monitor Position Semi-Fowlers Semi-Fowlers Blood Pressure Location Left Arm Left Arm History Since Last Visit- (Skip if this is Patient's initial visit) Have you changed medications since your No last visit? Any new allergies or adverse reactions No Had a fall/change in ADL's that may No increase risk of falls Signs or symptoms of abuse and/or No neglect since last visit Have you been in the hospital since your No last visit? Has dressing in place as prescribed Yes Yes Has compression in place as prescribed Yes No Has offloadiing in place as prescribed Yes N/A Experienced any changes in pain level or Yes No management Left Footwear Regular Shoe Regular Shoe Right Footwear Regular Shoe Regular Shoe Pain Scale: 0-10 Numeric Is Patient Pain Free? Yes Yes CODY Foote Nurse 1 - General Ulcer Measurement Start: 02/14/25 09:10 Freq: Status: Active Protocol: Activity Type Activity Date Activity User E-sign Co-sign Detail Recorded Client Recorded Date Recorded By Document 02/14/25 09:10 MT [id number] 02/14/25 09:15 MT Document 02/28/25 09:21 KW [id number] 02/28/25 09:26 KW 02/14/25 02/28/25 09:10 09:21 Wound Center Nurse 1 #5 RT LAT LE POST-OP -Current Size (cm) - Length 3.5 13 -Current Size (cm) - Width 1.6 1.5 -Current Size (cm) - Depth 0.1 0.1 -Total Square Cm 5.60 19.5 -Date of Last Picture (Recall this 02/14/25 02/28/25 field) -Photo Taken Yes -Tunneling No -Undermining/Tunneling No -Circular Undermining No -Exudate Amt Medium Medium -Exudate Type Serous Serosanguineous -Wound Margin Flat & Intact Distinct, Outline Attached -Granulation Amt Large (67-100%) Large (67-100%) -Granulation Quality [place],Red Red -Necrosis Amt None Present (0 %) -Texture (Mariza-wound Skin Appearance) Assessed Assessed -Moisture (Mariza-wound Skin Appearance) Assessed Assessed -Color (Mariza-wound Skin Appearance) Assessed Assessed -Temperature (Mariza-wound Skin No Abnormality No Abnormality Appearance) (Pt Warm) (Pt Warm) -Tenderness on Palpation (Mariza-wound No No Skin Appearance) -Ulcer Cleansing Not Cleansed Soap and Water -Foul Odor after Cleansing No No -Anesthetic Used 5% Lidocaine 5% Lidocaine Gel Gel Lower Limb Edema Present NA Right Calf (cm) 35 Right Ankle (cm) 25 Left Calf (cm) 38.5 Left Ankle (cm) 26.2 WC - Nurse 2 - General Ulcer CM Notes Start: 02/14/25 09:10 Freq: Status: Active Protocol: Activity Type Activity Date Activity User E-sign Co-sign Detail Recorded Client Recorded Date Recorded By Document 02/14/25 09:27 JF [id number] 02/14/25 09:29 JF Document 02/28/25 09:32 DS [id number] 02/28/25 09:37 DS 02/14/25 02/28/25 09:27 09:32 Wound Center Nurse 2 #5 RT LAT LE POST-OP -Time 09:27 09:33 -Correct Patient Yes Yes -Correct Side, Site, Position Yes Yes -Correct Procedure Yes Yes -Procedure Performed Yes Yes -Type of Procedure Debridement Debridement -Clinical Debridement Subcutaneous Subcutaneous -Tissue Removed Subcutaneous Subcutaneous -Post Debridement (cm) - Length 3.4 7.9 -Post Debridement (cm) - Width 1.5 1.7 -Post Debridement (cm) - Depth 0.1 0.2 -Total Square (Post) (cm) 5.10 13.43 -Area of Debridement (cm) - Length 3.4 7.9 -Area of Debridement (cm) - Width 1.5 1.7 -Total Square (Area) (cm) 5.10 13.43 -Tunneling No No -Undermining/Tunneling No No -Circular Undermining No No -Wound/Ulcer Outcome Not Healed Not Healed -Ulcer Cleansing Rinsed/ Rinsed/ Irrigated with Irrigated with Saline Saline -Foul Odor after Cleansing No No -Bioengineered Tissue No No -Bleeding Controlled with Pressure Pressure, Surgifoam ¾ x 2 3/8 (sm) -Surgifoam (3/4 x 2 3/8) Small 1 -Treatment Response Procedure Procedure Tolerated Well Tolerated Well -Offloading No -Debridement - Subq, 1st 20sq cm Yes Yes Pain Scale: 0-10 Numeric Is Patient Pain Free? Yes Yes - Nurse 3 - General Ulcer D/C NN Start: 02/14/25 09:10 Freq: Status: Active Protocol: Activity Type Activity Date Activity User E-sign Co-sign Detail Recorded Client Recorded Date Recorded By Document 02/14/25 10:21 KW [id number] 02/28/25 10:21 KW Document 02/28/25 10:08 ML [id number] 02/28/25 10:09 ML 02/14/25 02/28/25 10:21 10:08 Wound Care Center Nurse 3 #5 RT LAT LE POST-OP -Ulcer Cleansing Rinsed/ Irrigated with Saline -Primary Dressing Applied Promogran Promogran Lalit Matter Lalit Matter -Other Dressing celso -Primary Dressing Covered/Secured with Dry Gauze & Dry Gauze,Dry Roll Gauze, Gauze & Roll Secured with Gauze,Secured Tape with Tape -Promogran Lalit Matter 1 1 BLE -Compression Wrap Celso Wrap Pain Scale: 0-10 Numeric Is Patient Pain Free? Yes Yes - Visit Discharge Discharge Condition Stable Ambulatory Status Ambulatory Transportation Private Auto Medication Reconcilliation completed & No provided to patient/care provider Clinical Summary of Care Provided Yes Assessment/Plan Assessment/Plan (1) Non-pressure chronic ulcer of 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: CODE(S): L97.212 - Non-pressure chronic ulcer of 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 PLAN: Patient was examined and evaluated. All findings were discussed with the patient. All questions were answered to the patient's satisfaction. Excisional debridement of the right leg lateral aspect full-thickness ulceration down to and including subcutaneous tissue with a number 5 mm dermal curette without incident. Predebridement measurement was 7.7 x 1.5 x 0.1 cm. Postdebridement measurement was 7.9 x 1.7 x 0.2 cm. The right lower extremities were cleaned and patted dry. Moist lalit was applied followed by dry sterile dressing and Celso wrap. Encouraged ambulation. Educated the patient continue rest and elevate his bilateral lower extremity. A phone call was made to the nursing supervisor quilting at the [facility]. The phone call was not answered but a detailed message regarding the patient's concerns with callback number to my cell phone was given. Will try to discuss further with the nursing supervisor quilting. If that is unsuccessful reach out to director of the nursing facility. Follow-up at the wound care center with Dr. Shannon in 1 week.
--- NOTE | 2025-02-28 14:15 | WC ---
PHOTO-RIGHT LATERAL LEG CLUSTER 02/28/25
[2025-03-07 08:51] VITALS: BP 135/77; PULSE 60; RESP 18; TEMP -14.4; TEMP 6
--- NOTE | 2025-03-07 09:53 | PCM.WC.PN ---
History of Present Illness Date of Service: 03/07/25 Chief Complaint: Right buttock ulceration History of Wound: Patient is 69-year-old male chronic ulceration to the lateral right leg stable with no sign of infection. Progress of Wound: Chronic slow healing right leg full-thickness wound. Subjective Subjective Patient is a 69-year-old male presenting to clinic today follow-up evaluation of full-thickness wound to the lateral left leg. [facility]. He admits to some bleeding with dressing changes but overall he notices mild improvement to the wound. He is grateful for his care. Denies trauma. Denies constitutional symptoms. No other pedal complaints at this time. Objective Data Objective Data Vital Signs: Vital Signs Temp Pulse Resp BP O2 Del Method 6.0 F L 60 18 135/77 H Room Air 03/07/25 08:51 03/07/25 08:51 03/07/25 08:51 03/07/25 08:51 03/07/25 08:51 Oxygen Delivery Method Room Air Physical Exam Narrative Vascular: DP and PT pulses are palpable to the right lower extremity. Nonpitting edema appreciated to the right lower extremity. Skin temperature gradient is warm to warm from proximal ankles to distal digit. No focal increase appreciated. Evidence of varicosities appreciated left lower extremity. Neurological: Light touch intact. Patient response to painful stimuli. Protective sensation is diminished. Dermatological: Full-thickness ulceration to the lateral aspect of the right leg measuring 8.2 x 1.5 x 0.1 cm. Wound base is granular. No malodor or probe to bone. No sign of infection. Excisional debridement of the right leg lateral aspect full-thickness ulceration down to and including subcutaneous tissue with a number 5 mm dermal curette without incident. Predebridement measurement was 8.0 x 1.3 x 0.1 cm. Postdebridement measurement was 8.2 x 1.5 x 0.1 cm. Musculoskeletal: No pain to palpation to full-thickness ulceration. No pain with calf compression. Debridement Note Debridement Note Debridement Free Text: Excisional debridement of the right leg lateral aspect full-thickness ulceration down to and including subcutaneous tissue with a number 5 mm dermal curette without incident. Predebridement measurement was 8.0 x 1.3 x 0.1 cm. Postdebridement measurement was 8.2 x 1.5 x 0.1 cm. Post-Debridement Measurements and Additional Note: Post-Debridement Measurements/Treatment WC - Nurse 1 - General Ulcer Assessment Start: 02/14/25 09:10 Freq: Status: Active Protocol: GALE Activity Type Activity Date Activity User E-sign Co-sign Detail Recorded Client Recorded Date Recorded By Document 02/14/25 09:10 MT [id number] 02/14/25 09:15 MT Document 02/28/25 09:21 KW [id number] 02/28/25 09:26 KW Document 03/07/25 08:51 KW [id number] 03/07/25 09:05 KW 02/14/25 02/28/25 03/07/25 09:10 09:21 08:51 - Today's Visit Information Type of service Follow-up Visit Follow-up Visit Follow-up Visit (Physician/SITE IDENTIFICATION SPECIALIST (Physician/SITE IDENTIFICATION SPECIALIST (Physician/SITE IDENTIFICATION SPECIALIST ) ) ) Arrival Mode Ambulatory Ambulatory Ambulatory Accompanied by self Patient Identification Verified (Name & Yes Yes Yes ) Safety Precautions Fall Prevention Vital Signs Temperature (97.8 F-99.1 F) 98 F 96.2 F L 6.0 F L Temperature Source Temporal Temporal Temporal Pulse Rate (60-100) 64 55 L 60 Pulse Location Monitor Monitor Monitor Respiratory Rate (12-18) 18 18 18 Respiratory rate source Monitor Monitor Observation Oxygen Delivery Method Room Air Room Air Room Air Blood Pressure (90/60-120/80) 127/77 H 129/79 H 135/77 H Blood Pressure Mean (mm Hg) 93 95 96 Source Monitor Monitor Monitor Position Semi-Fowlers Semi-Fowlers Semi-Fowlers Blood Pressure Location Left Arm Left Arm Left Arm History Since Last Visit- (Skip if this is Patient's initial visit) Have you changed medications since your No No last visit? Any new allergies or adverse reactions No No Had a fall/change in ADL's that may No No increase risk of falls Signs or symptoms of abuse and/or No No neglect since last visit Have you been in the hospital since your No No last visit? Has dressing in place as prescribed Yes Yes Yes Has compression in place as prescribed Yes No Yes Has offloadiing in place as prescribed Yes N/A N/A Experienced any changes in pain level or Yes No No management Left Footwear Regular Shoe Regular Shoe Regular Shoe Right Footwear Regular Shoe Regular Shoe Regular Shoe Pain Scale: 0-10 Numeric Is Patient Pain Free? Yes Yes Yes WC - Nurse 1 - General Ulcer Measurement Start: 02/14/25 09:10 Freq: Status: Active Protocol: Activity Type Activity Date Activity User E-sign Co-sign Detail Recorded Client Recorded Date Recorded By Document 02/14/25 09:10 MT [id number] 02/14/25 09:15 MT Document 02/28/25 09:21 KW [id number] 02/28/25 09:26 KW Document 03/07/25 08:51 KW [id number] 03/07/25 09:05 KW 02/14/25 02/28/25 03/07/25 09:10 09:21 08:51 Wound Center Nurse 1 #5 RT LAT LE POST-OP -Current Size (cm) - Length 3.5 13 12.3 -Current Size (cm) - Width 1.6 1.5 1.5 -Current Size (cm) - Depth 0.1 0.1 0.1 -Total Square Cm 5.60 19.5 18.45 -Date of Last Picture (Recall this 02/14/25 02/28/25 03/07/25 field) -Photo Taken Yes -Tunneling No -Undermining/Tunneling No -Circular Undermining No -Exudate Amt Medium Medium Medium -Exudate Type Serous Serosanguineous Serosanguineous -Wound Margin Flat & Intact Distinct, Thickened Outline Attached -Granulation Amt Large (67-100%) Large (67-100%) Large (67-100%) -Granulation Quality [place],Red Red Red -Necrosis Amt None Present (0 Small (1-33%) %) -Necrotic Tissue Type Adherent Slough -Texture (Mariza-wound Skin Appearance) Assessed Assessed Assessed -Moisture (Mariza-wound Skin Appearance) Assessed Assessed Assessed -Color (Mariza-wound Skin Appearance) Assessed Assessed Assessed -Temperature (Mariza-wound Skin No Abnormality No Abnormality No Abnormality Appearance) (Pt Warm) (Pt Warm) (Pt Warm) -Tenderness on Palpation (Mariza-wound No No No Skin Appearance) -Ulcer Cleansing Not Cleansed Soap and Water Soap and Water -Foul Odor after Cleansing No No No -Anesthetic Used 5% Lidocaine 5% Lidocaine 5% Lidocaine Gel Gel Gel Lower Limb Edema Present NA Right Calf (cm) 35 34.5 Right Ankle (cm) 25 23.5 Left Calf (cm) 38.5 37.5 Left Ankle (cm) 26.2 24 WC - Nurse 2 - General Ulcer CM Notes Start: 02/14/25 09:10 Freq: Status: Active Protocol: Activity Type Activity Date Activity User E-sign Co-sign Detail Recorded Client Recorded Date Recorded By Document 02/14/25 09:27 JF [id number] 02/14/25 09:29 JF Document 02/28/25 09:32 DS [id number] 02/28/25 09:37 DS Document 03/07/25 09:29 JF [id number] 03/07/25 09:32 JF 02/14/25 02/28/25 03/07/25 09:27 09:32 09:29 Wound Center Nurse 2 #5 RT LAT LE POST-OP -Time 09: 09:33 09:29 -Correct Patient Yes Yes Yes -Correct Side, Site, Position Yes Yes Yes -Correct Procedure Yes Yes Yes -Procedure Performed Yes Yes Yes -Type of Procedure Debridement Debridement Debridement -Clinical Debridement Subcutaneous Subcutaneous Subcutaneous -Tissue Removed Subcutaneous Subcutaneous Subcutaneous -Post Debridement (cm) - Length 3.4 7.9 8.2 -Post Debridement (cm) - Width 1.5 1.7 1.5 -Post Debridement (cm) - Depth 0.1 0.2 0.1 -Total Square (Post) (cm) 5.10 13.43 12.30 -Area of Debridement (cm) - Length 3.4 7.9 8.2 -Area of Debridement (cm) - Width 1.5 1.7 1.5 -Total Square (Area) (cm) 5.10 13.43 12.30 -Tunneling No No No -Undermining/Tunneling No No No -Circular Undermining No No No -Wound/Ulcer Outcome Not Healed Not Healed Not Healed -Ulcer Cleansing Rinsed/ Rinsed/ Rinsed/ Irrigated with Irrigated with Irrigated with Saline Saline Saline -Foul Odor after Cleansing No No No -Bioengineered Tissue No No No -Bleeding Controlled with Pressure Pressure, Pressure Surgifoam ¾ x 2 3/8 () -Surgifoam (3/4 x 2 3/8) Small 1 -Treatment Response Procedure Procedure Procedure Tolerated Well Tolerated Well Tolerated Well -Offloading No No -Debridement - Subq, 1st 20sq cm Yes Yes Yes Pain Scale: 0-10 Numeric Is Patient Pain Free? Yes Yes Yes - Nurse 3 - General Ulcer D/C NN Start: 02/14/25 09:10 Freq: Status: Active Protocol: Activity Type Activity Date Activity User E-sign Co-sign Detail Recorded Client Recorded Date Recorded By Document 02/14/25 10:21 KW [id number] 02/28/25 10:21 KW Document 02/28/25 10:08 ML [id number] 02/28/25 10:09 ML Document 03/07/25 09:47 KW [id number] 03/07/25 09:47 KW 02/14/25 02/28/25 03/07/25 10:21 10:08 09:47 Wound Care Center Nurse 3 #5 RT LAT LE POST-OP -Ulcer Cleansing Rinsed/ Irrigated with Saline -Primary Dressing Applied Promogran Promogran NonAdherent Pankaj Matter Pankaj Matter Contact Layer, Promogran Pankaj Matter -Other Dressing celso -Primary Dressing Covered/Secured with Dry Gauze & Dry Gauze,Dry Dry Gauze & Roll Gauze, Gauze & Roll Roll Gauze, Secured with Gauze,Secured Secured with Tape with Tape Tape -Promogran Pankaj Matter 1 1 1 -Wound Comment(s) MOISTEN PANKAJ BLE -Compression Wrap Celso Wrap Celso Wrap -Other 6 IN Pain Scale: 0-10 Numeric Is Patient Pain Free? Yes Yes Yes - Visit Discharge Discharge Condition Stable Stable Ambulatory Status Ambulatory Ambulatory Transportation Private Auto Private Auto Medication Reconcilliation completed & No No provided to patient/care provider Clinical Summary of Care Provided Yes Yes Assessment/Plan Assessment/Plan (1) Non-pressure chronic ulcer of 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: CODE(S): L97.212 - Non-pressure chronic ulcer of 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 PLAN: Patient was examined and evaluated. All findings were discussed with the patient. All questions were answered to the patient's satisfaction. Excisional debridement of the right leg lateral aspect full-thickness ulceration down to and including subcutaneous tissue with a number 5 mm dermal curette without incident. Predebridement measurement was 8.0 x 1.3 x 0.1 cm. Postdebridement measurement was 8.2 x 1.5 x 0.1 cm. The area was wiped clean and patted dry. Moist Pankaj was applied followed by Adaptic dry sterile dressing and Celso wrap to the bilateral lower extremity. Orders were given for dressing changes and to be followed based on our recommendations. Educated patient continue to rest and elevate is much as he can as well as continue strict blood sugar control which he is understanding of. Follow-up at the wound care center with Dr. Shannon in 1 week.
--- NOTE | 2025-03-07 13:24 | WC ---
PHOTO-RLE 03/07/25
== END 2025-03-11 23:59 | disposition home or self-care (01) ==
LOC: WC 09:00
PROVIDERS: PCP Internal Medicine; Referring Provider Surgery; Visit Provider Podiatrist Foot & Ankle Surgery
DX: L97.212 Non-pressure chronic ulcer of 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 (principal)
CPT/HCPCS: 11042

== ENCOUNTER 2025-03-11 22:24 | Emergency (ER) | payer MEDICARE, SELFPAY ==
[2025-03-11 22:25] VITALS: BP 143/46; PULSE 54; RESP 14; TEMP 36.6; O2SAT 99; BMI 33.9
[2025-03-11 22:32] VITALS: BP 143/46; PULSE 54; RESP 14; TEMP 36.6; O2SAT 99
--- NOTE | 2025-03-11 22:51 | CT_ITS ---
PROCEDURE: BRAIN/HEAD WITHOUT CONTRAST 03/12/2025 REASON FOR EXAM: WEAKNESS, AMS TECHNIQUE: Procedure Code: CTBR Modality: CT Procedure: BRAIN/HEAD WITHOUT CONTRAST Coronal and Sagittal reconstruction series were provided. One or more dose reduction techniques were used (e.g., Automated exposure control, adjustment of the mA and/or kV according to patient size, use of iterative reconstruction technique. RADIATION DOSE SUMMARY: CTDlvol: 44.99 mGy DLP: 812.98 mGycm COMPARISON: 01-06-2028 FINDINGS: The visualized brain parenchyma shows normal appearance. No focal parenchymal abnormalities are demonstrated. House-white matter differentiation is maintained. Normal CT appearance of the posterior fossa structures. No intracerebral or extra-axial hemorrhage. No midline shifts or deformity. Normal size and configuration of the cerebral ventricles. Dilated cortical sulci. No definite calvarial fractures. The osseous structures in the skull base are unremarkable. Paranasal sinuses show left maxillary mucosal thickening. CT/Brain/Head without Contrast IMPRESSION: No intracerebral or extra-axial hemorrhage. No acute cerebrovascular insult. If clinical symptoms persist, further evaluati on with MRI may be considered as clinically warranted. Unremarkable non-enhanced CT study for the brain. No interval changes since the last study. Reading [facility]
--- NOTE | 2025-03-11 22:52 | EKG12_ITS ---
Test Reason : CONFUSION Blood Pressure : */* mmHG Vent. Rate : 55 BPM Atrial Rate : 55 BPM P-R Int : 212 ms QRS Dur : 112 ms QT Int : 432 ms P-R-T Axes : 64 41 38 degrees QTcB Int : 413 ms Sinus bradycardia with 1st degree A-V block Otherwise normal ECG Confirmed by mAarjit Soliman ([id number]), news videotape editor JOE ABREU ([id number]) on 03/13/2025 10:47:21 AM Referred By: Confirmed By: Amarjit Soliman
--- OUTSIDE RECORDS SUMMARY | 2025-03-11 23:14 | XMS RPT_ITS | CCD ---
Author Organization [facility] Care Team Providers Care Wirer Name Role Phone Poornima Medina Primary Care Provider YADIEL NASCIMENTO Primary Care Physician KELLIE BURGOS Primary Care Physician Poornima Medina DO Primary Care Provider Delmis USER EXPERIENCE ANALYST, USER EXPERIENCE ANALYST-C Kellie Primary Care Provider Dr. Shayna Martinez Emergency Provider Dr. Sommer Xie Admit Provider Dr. Sommer Xie Other Provider Dr. Washington Ames Attending Provider Dr. Washington Ames Other Provider Dr. Louie Howard Attending Provider Dr. Louie Howard Other Provider Friend, Dr. Spears Attending Provider Ignacia Reyna DO Primary Care Provider KELLIE BURGOS Primary Care Unavailanthony AMARO MD, DR OLEA Consulting Unavailab DANIE Rodriguez Attending Unavailable DANIE ALBERTO Admitting Unavailable SALTY KWAN, NAVARRO Consulting Unavailable DL KWAN, DR GUNDERSON Consulting Unavailable DAYANA TOMLINSON MD Consulting Unavailable GAVINO AG Attending Unavailable KELLIE BURGOS Primary Care UnavailVeronica CASTELLANOS, KELLIE Primary Care UnavailDANIE Chaidez Referring Unavailable RACHAEL KWAN, JUAN Attending Unavailable RACHAEL KWAN, JUAN Consulting Unavailable DANIE ALBERTO Admitting Unavailable BALTES ORDERLIES TEACHER-GAS PROVER, KELLIE Primary Care Unavailabl e BALTES ORDERLIES TEACHER-GAS PROVER, KELLIE Attending Unavailabl e BALTES ORDERLIES TEACHER-GAS PROVER, KELLIE Primary Care Unavailabl e BALTES ORDERLIES TEACHER-GAS PROVER, KELLIE Attending Unavailabl e BALTES ORDERLIES TEACHER-GAS PROVER, KELLIE Primary Care Unavailabl e KAPPER ORDERLIES TEACHER-GAS PROVER, WU Frances Admitting Unavailkenia ABRAHAM MD, IRAIDA Consulting Unavailable SAADIA BASS, DR RVIAS Attending Unavailable DANIE ALBERTO Consulting Unavailable LUIS MIGUEL KWAN, DR NICHO BANKS Consulting Unavai lable BALTES ORDERLIES TEACHER-GAS PROVER, KELLIE Primary Care Unavailabl e BALTES ORDERLIES TEACHER-GAS PROVER, KELLIE Attending Unavailabl e BALTES ORDERLIES TEACHER-GAS PROVER, KELLIE Primary Care Unavailabl e SAADIA KWAN, FERNANDO Messer Attending Unavail able BALTES ORDERLIES TEACHER-GAS PROVER, KELLIE Primary Care Unavailabl e SAADIA KWAN, FERNANDO Messer Attending Unavail able BALTES ORDERLIES TEACHER-GAS PROVER, KELLIE Primary Care Unavailabl e GAVINO AG Attending Unavailable BALTES ORDERLIES TEACHER-GAS PROVER, KELLIE Primary Care Unavailabl e BALTES ORDERLIES TEACHER-GAS PROVER, KELLIE Attending Unavailabl e BALTES ORDERLIES TEACHER-GAS PROVER, KELLIE Primary Care Unavailabl e BALTES ORDERLIES TEACHER-GAS PROVER, KELLIE Attending Unavailabl e BALTES ORDERLIES TEACHER-GAS PROVER, KELLIE Primary Care Unavailabl e BALTES ORDERLIES TEACHER-GAS PROVER, KELLIE Attending Unavailabl e BALTES ORDERLIES TEACHER-GAS PROVER, KELLIE Primary Care Unavailabl e BALTES ORDERLIES TEACHER-GAS PROVER, KELLIE Attending Unavailabl e BALTES ORDERLIES TEACHER-GAS PROVER, KELLIE Primary Care Unavailabl e LASCOLA DPM, SAKINA Cisse Attending Unavailab le BALTES ORDERLIES TEACHER-GAS PROVER, KELLIE Primary Care Unavailabl e ASHLEY DPM, DR CLARISSE Morales Attending Unav ailable Dr. Ignacia Reyna DO Primary Care Provider Shiva DPM, Dr. Walker Attending Provider Shiva DPM, Dr. Walker Referring Provider Fidelina KWAN, Dr. Moshe Aquino Referring Provider Dr. Ignacia Reyna DO Other Provider Dr. Juan Cunha DO Emergency Provider [phone] Saul KWAN, Dr. Wang Primary Care Provider Lee Ann Kitchen MD, Dr. Moshe Aquino Referring Provider Axel BASS, Dr. Escobedo Primary Care Provider [phone] Axel BASS, Dr. Escobedo Other Provider [phone] Shiva FREEMANM, Dr. Walker Attending Provider Guerline BASS, Dr. Martinez Attending Provider [phone] Eunice KWAN, Kurtis Emergency Provider Katerine KWAN, Dr. Monika Rosenberg Admit Provider Katerine KWAN, Dr. Monika Rosenberg Attending Provider Katerine KWAN, Dr. Monika Rosenberg Other Provider Florinda KWAN, Dr. Lizama Attending Provider Unavaila ble Florinda KWAN, Dr. Lizama Other Provider Unavailable Juan BASS, Dr. Martell Emergency Provider Katerine KWAN, Dr. Monika Rosenberg Attending Provider Jan MIRANDA, Dr. Martell Other Provider Akil KWAN, Dr. Snell Other Provider Yajaira BASS, Dr. Doyle Attending Provider Lalo KWAN, Dr. Bowman Other Provider Lalo KWAN, Dr. Bowman Attending Provider Cheyenne KWAN, Dr. Ruelas Attending Provider Rojas KWAN, Dr. Sommer Martin Attending Provider Melia KWAN, Dr. Doyle Attending Provider Dr. Vivek Gates DO Other Provider Dino KWAN, Dr. Vela Attending Provider SAADIA BASS, DR RIVAS Attending Unavailable DR ROB MONTENEGRO DO Referring Unavailable JOSEFINA GRAVES-GAS PROVER, MIRELA Martin Admitting Galilea BENITES ORDERLIES TEACHER-GAS PROVER, KELLIE Primary Care Unavailabl POORNIMA Blackmon DO Attending Unavailable BALTES ORDERLIES TEACHER-GAS PROVER, KELLIE Primary Care Unavailabl e SAADIA KWAN, FERNANDO Messer Attending Unavail able BALTES ORDERLIES TEACHER-GAS PROVER, KELLIE Primary Care Unavailabl e SALUD KWAN, CHAYO Attending Unavailable BALTES ORDERLIES TEACHER-GAS PROVER, KELLIE Primary Care Unavailabl e BALTES ORDERLIES TEACHER-GAS PROVER, KELLIE Attending Unavailabl e BALTES ORDERLIES TEACHER-GAS PROVER, KELLIE Primary Care Unavailabl e FISH ORDERLIES TEACHER-GAS PROVER, GAVINO Attending Unavailab le BALTES ORDERLIES TEACHER-GAS PROVER, KELLIE Primary Care Unavailabl e Yareli KWAN, Shar Candelario Unavailable Fidelina KWAN, Dr. Moshe Aquino Referring Provider Dr. Ignacia Reyna DO Primary Care Provider [phone] Dr. Ignacia Reyna DO Other Provider [phone] Shiva DPM, Dr. Wlaker Attending Provider Jan DPM, Dr. Martell Referring Provider [phone] SHAR DOWNS Attending Unavailable IGNACIA REYNA Primary Care Unavailable SHAR DOWNS Attending Unavailable IGNACIA REYNA Primary Care Unavailable ISABELA CAMPBELL Attending Unavailable AXEL, IGNACIA Primary Care Unavailable SHAR DOWNS Attending Unavailable AXEL, IGNACIA Primary Care Unavailable SHAR DOWNS Referring Unavailable AXEL, IGNACIA Primary Care Unavailable Guerline BASS, Dr. Martinez Attending Provider [phone] Dr. Juan Cunha DO Emergency Provider Saul KWAN, Dr. Wang Primary Care Provider Unava kelly Kitchen MD, Dr. Moshe Aquino Referring Provider Dr. Ignacia Reyna DO Primary Care Provider [phone] Dr. Ignacia Reyna DO Other Provider [phone] Shiva DPM, Dr. Walker Attending Provider Kurtis Monteiro MD Emergency Provider [phone] Katerine KWAN, Dr. Monika Rosenberg Admit Provider [phone] Katerine KWAN, Dr. Monika Rosenberg Other Provider [phone] Florinda KWAN, Dr. Lizama Attending Provider Unavaila ble Bridgettee MD, Dr. Lizama Other Provider Unavailable Juan BASS, Dr. Martell Emergency Provider Jan MIRANDA, Dr. Martell Other Provider Akil KWAN, Dr. Snell Other Provider Yajaira BASS, Dr. Doyle Attending Provider Lalo KWAN, Dr. Bowman Other Provider Lalo KWAN, Dr. Bowman Attending Provider Cheyenne KWAN, Dr. Ruelas Attending Provider Melia KWAN, Dr. Doyle Attending Provider Jan MIRANDA, Dr. Martell Referring Provider Yajaira BASS, Dr. Doyle Other Provider Dino KWAN, Dr. Vela Attending Provider Shauna BASS, Dr. Doyle Emergency Provider Shree KWAN, Dr. Kelley Admit Provider Shree KWAN, Dr. Kelley Attending Provider Shree KWAN, Dr. Kelley Referring Provider Shree KWAN, Dr. Kelley Other Provider Anita BASS, Dr. Palma Attending Provider Anita BASS, Dr. Palma Other Provider BALTES ORDERLIES TEACHER-GAS PROVER, KELLIE Primary Care Unavailabl e RAGHAV TOLBERT Attending Unavailable BALTES ORDERLIES TEACHER-GAS PROVER, KELLIE Primary Care Unavailabl e BALTES ORDERLIES TEACHER-GAS PROVER, KELLIE Attending Unavailanthony Herzog MD, Dr. Wang Primary Care Provider Unava kelly Neely MD, Dr. Lizama Other Provider Unavailable Fidelina KWAN, Dr. Moshe Aqiuno Referring Provider Axel BASS, Dr. Escobedo Other Provider Shiva MIRANDA, Dr. Walker Attending Provider Shauna BASS, Dr. Doyle Emergency Provider Shree KWAN, Dr. Kelley Admit Provider [phone] Shree KWAN, Dr. Kelley Referring Provider Shree KWAN, Dr. Kelley Other Provider Anita BASS, Dr. Palma Attending Provider Anita BASS, Dr. Palma Other Provider Aaron Shannon Attending Unavailable Reyna, Ignacia Consulting Unavailable Reyna, Ignacia Primary Care Unavailable Kitchen, Moshe A Referring Unavailable ShannonAaron Attending Unavailable Reyna, Ignacia Consulting Unavailable Kitchen, Moshe A Referring Unavailable Reyna, Ignacia Primary Care Unavailable Koram, Monika Shakira Admitting Unavailable Koram, Monika Shakira Consulting Unavailable Vivek Gates Attending Unavailable Gudla, Kathleen Primary Care Unavailable Shayna Montoya Consulting Unavailable Akil, Channing Consulting Unavailable Lalo, Colby Consulting Unavailable Yajaira Vivek Consulting Unavailable Shiva Aaron Referring Unavailable Aaron Shannon Attending Unavailable Reyna, Ignacia Primary Care Unavailable Aaron Shannon Attending Unavailable Reyna, Ignacia Consulting Unavailable Kitchen, Moshe A Referring Unavailable Reyna, Ignacia Primary Care Unavailable ShannonAaron Attending Unavailable Reyna, Ignacia Consulting Unavailable Reyna, Ignacia Primary Care Unavailable Kitchen, Moshe A Referring Unavailable Gudla, Kathleen Primary Care Unavailable Koram, Monika Shakira Admitting Unavailable Koram, Monika Shakira Consulting Unavailable Vivek Gates Attending Unavailable Shayna Montoya Consulting Unavailable Akil, Channing Consulting Unavailable Lalo, Colby Consulting Unavailable Allie Swann Attending Unavailable Gudla, Kathleen Primary Care Unavailable Aaron Shannon Attending Unavailable Reyna, Ignacia Primary Care Unavailable Kitchen, Moshe A Referring Unavailable Reyna, Ignacia Consulting Unavailable ShannonAaron Attending Unavailable Reyna, Ignacia Consulting Unavailable Kitchen, Moshe A Referring Unavailable Gudla, Kathleen Primary Care Unavailable Aaron Shannon Attending Unavailable Reyna, Ignacia Consulting Unavailable Kitchen, Moshe A Referring Unavailable Gudla, Kathleen Primary Care Unavailable ShannonAaron Attending Unavailable Reyna, Ignacia Consulting Unavailable Kitchen, Moshe A Referring Unavailable Gudla, Kathleen Primary Care Unavailable Juan Cunha Attending Unavailable Gudla, Kathleen Primary Care Unavailable ShannonAaron Attending Unavailable Reyna, Ignacia Consulting Unavailable Axel, Ignacia Primary Care Unavailable Moshe Kitchen Referring Unavailable Ignacia Reyna Consulting Unavailable Aaron Shannon Attending Unavailable Moshe Kitchen Referring Unavailable Reyna, Ignacia Primary Care Unavailable Meet USER EXPERIENCE ANALYST, Nicol Messer Referring Unavailanthony e Ignacia Reyna Consulting Unavailable Reyna, Ignacia Primary Care Unavailable Meet USER EXPERIENCE ANALYST, Nicol Messer Attending Unavailabl Aaron Hanson Consulting Unavailable Colby May Attending Unavailable Allie Swann Admitting Unavailable Allie Swann Referring Unavailable Allie Swann Consulting Unavailable Louie Howard Attending Unavailable Gudla, Kathleen Primary Care Unavailable Gudla, Kathleen Primary Care Unavailable Koram, Monika Shakira Consulting Unavailable Koram, Monika Shakira Admitting Unavailable Dl Neely Attending Unavailable Allie Swann Consulting Unavailable Allie Swann Admitting Unavailable Shree Allie Referring Unavailable Louie Howard Attending Unavailable Louie Howard Consulting Unavailable Aaron Shannon Attending Unavailable Ignacia Reyna Consulting Unavailable Gudla, Kathleen Primary Care Unavailable Moshe Kitchen Referring Unavailable Koram, Monika Shakira Attending Unavailable Gudla, Kathleen Primary Care Unavailable Koram, Monika Shakira Admitting Unavailable Maryam, Monika Shakira Attending Unavailable Katerine, Monika Shakira Consulting Unavailable Dl Neely Attending Unavailable Dl Neely Consulting Unavailable Meet USER EXPERIENCE ANALYST, Nicol Messer Attending Unavailanthony e Reyna, Ignacia Primary Care Unavailable Moshe Kitchen Referring Unavailable Ignacia Reyna Consulting Unavailable Aaron Shannon Consulting Unavailable Dane Sun Attending Unavailable Gudla, Kathleen Primary Care Unavailable Ignacia Reyna Referring Unavailable Kevin Ulrich Attending Unavailable Gudla, Kathleen Primary Care Unavailable Gudla, Kathleen Primary Care Unavailable Suraj Quinn Attending Unavailabl e Gudla, Kathleen Primary Care Unavailable Vivek Cárdenas Attending Unavailable Shayna Montoya Referring Unavailable Meet USER EXPERIENCE ANALYST, Nicol Messer Referring Unavailanthony Dsouza USER EXPERIENCE ANALYST, Nicol Messer Attending Unavailanthony e Axel, Ignacia Primary Care Unavailable Ignacia Reyna Consulting Unavailable Aaron Shannon Consulting Unavailable Aaron Shannon Attending Unavailable Ignacia Reyna Consulting Unavailable Moshe Kitchen A Referring Unavailable Gudla, Kathleen Primary Care Unavailable Allergies Allergy Classification Reported Allergen(s) Allergy Type Date of Onset Reaction(s) Facility (20 sources) Ibuprofen; Translations: [ibuprofen] Drug Allergy 10-28-2023 Unknown [facility] (6 sources) [facility] non-codified allergy 1 Drug allergy [facility] Comment on above: blood thinner--does not know the name (14 sources) [facility] non-codified allergy 1, 2 Drug allergy unknown [facility] [place] Comment on above: possibly Nuprin? blood thinner--does not know the name (1 source) Ibuprofen Drug Allergy 01-05-2025 [facility] Repository Medications Current Medications Medication Drug Class(es) Dates Sig (Normalized) Sig (Original) 0.5 ML tirzepatide 10 MG/ML Auto-Injector [Mounjaro] (13 sources) Start: 10-26-2023 inject 1 dose by subcutaneous injection every week Mounjaro 5 mg/0.5 mL subcutaneous solution Dose : 5 mg =, Subcutaneous, qWeek, 0 Refill(s) Start Date: 10/26/23 Status: Ordered Repeat number: 1 Start: 10-26-2023 inject 1 dose by sub cutaneous injection every week Mounjaro 5 mg/0.5 mL subcutaneous solution Dose : 5 mg =, Subcutaneous, qWeek, 0 Refill(s) Start Date: 10/26/23 Status: Ordered Start: 10-26-2023 Mounjaro 5 mg/ 0.5 mL subcutaneous solution 0 Refill(s) Start Date: 10/26/23 Status: Ordered Start: 10-03-2023 inject 1 dose by sub cutaneous injection every week Mounjaro 5 mg/0.5 mL subcutaneous solution Dose : 5 mg =, Subcutaneous, qWeek, rotate injection sites, # 4 EA, 0 Refill(s) Start Date: 10/03/23 Status: Ordered Start: 09-16-2023 inject 1 dose by sub cutaneous injection every week Mounjaro 5 mg/0.5 mL subcutaneous solution Dose : 5 mg =, Subcutaneous, qWeek, rotate injection sites, # 4 EA, 4 Refill(s), Pharmacy: [facility], 185.4, cm, 04/23/23 9:20:00 EDT, Height, kg, 08/18/23 8:26:00 EST, Dosing Weight Start Date: 09/16/23 Status: Ordered Start: 07-07-2023 inject 1 dose by sub cutaneous injection every week Mounjaro 5 mg/0.5 mL subcutaneous solution Dose : 5 mg =, Subcutaneous, qWeek, rotate injection sites, # 4 EA, 4 Refill(s), Pharmacy: [facility], 185.4, cm, 04/23/23 9:20:00 EDT, Height, kg, 04/23/23 9:20:00 EDT, Dosing Weight Start Date: 07/07/23 Status: Ordered 0.5 ML tirzepatide 5 MG/ML Auto-Injector [Mounjaro] (1 source) Start: 04-07-2023 inject 1 dose by subcutaneous injection every week Mounjaro 2.5 mg/0.5 mL subcutaneous solution Dose : 2.5 mg =, Subcutaneous, qWeek, rotate injection sites, # 4 EA, 3 Refill(s), Pharmacy: [facility], 182.9, cm, 03/16/23 6:55:00 EDT, Height, kg, 03/16/23 6:55:00 EDT, Dosing Weight Start Date: 04/07/23 Status: Ordered 3 ML semaglutide 1.34 MG/ML Pen Injector [Ozempic] (1 source) Start: 08-18-2022 End: 03-02-2023 inject 1 dose by subcutaneous injection every week Ozempic (1 mg dose) 4 mg/3 mL subcutaneous solution Dose : 1 mg =, Subcutaneous, qWeek, # 3 mL, 6 Refill(s), Pharmacy: [facility], 182.9, cm, 07/10/22 9:29:00 EST, Height Start Date: 08/18/22 Stop Date: 03/02/23 Status: Ordered 3 ML semaglutide 2.68 MG/ML Pen Injector [Ozempic] (5 sources) Start: 01-05-2023 inject 1 dose by subcutaneous injection every week Ozempic 8 mg/3 mL (2 mg dose) subcutaneous solution Dose : 2 mg =, Subcutaneous, qWeek, in the abdomen, thigh, or upper arm, # 3 mL, 11 Refill(s), Pharmacy: [facility], 182.9, cm, 07/10/22 9:29:00 EST, Height Start Date: 01/05/23 Status: Ordered acetaminophen 500 mg oral tablet (20 sources) Start: 01-05-2025 take 2 tablets by mouth three times daily Acetaminophen 500 mg tablet Active 1000 mg PO THREE TIMES A DAY January 05, 2025 12:00am PAIN Start: 06-01-2024 End: 01-05-2025 take 2 tablets by mouth every four hours as needed for pain Acetaminophen (Tylenol) 325 mg tablet Discontinued 650 mg PO Q4H as needed for pain June 01, 2024 1:00am January 05, 2025 9:28am Start: 04-05-2024 acetaminophen 500 mg oral tablet Dose : 1,000 mg = 2 tab(s), Oral, TID, PRN pain or fever, 0 Refill(s) Start Date: 04/05/24 Status: Ordered Start: 01-08-2024 End: 06-01-2024 take 2 tablets by mouth every eight hours as needed for pain Acetaminophen 500 mg Tablet Discontinued 1000 mg PO EVERY 8 HOURS as needed for fever or pain 30 0 January 08, 2024 7:12am June 01, 2024 1:38pm Start: 11-03-2023 End: 01-08-2024 take 2 tablets by mouth every four hours as needed for pain Acetaminophen 325 mg Tablet Discontinued 650 mg PO EVERY 4 HOURS NEEDED as needed for Fever, pain 1-10/10 0 0 November 03, 2023 12:00am January 08, 2024 7:12am Start: 11-03-2023 take 650 mg by mouth every four hours as needed Acetaminophen Active 650 MG PO EVERY 4 HOURS NEEDED 0 November 03, 2023 12:00am Start: 10-13-2023 Tylenol 325 mg oral capsule Dose : 650 mg =, Oral, q4h, PRN Pain, scale 1-3, 0 Refill(s) Start Date: 10/13/23 Status: Ordered acetaminophen 325 mg / HYDROcodone bitartrate 5 mg oral tablet (12 sources) Opioid Agonist Start: 04-05-2024 End: 04-08-2024 take 1 tablet by mouth every six hours as needed for pain Thaxton 325- 5 mg oral tablet Dose = 1 tab(s), Oral, q6h, PRN as needed for pain, X 3 day(s), # 12 tab(s), 0 Refill(s), Abdominal pain, 134.1 Start Date: 04/05/24 Stop Date: 04/08/24 Status: Ordered Start: 01-03-2024 End: 01-08-2024 Hydrocodone-Acetaminophen 5- 325 mg tablet Discontinued 1 {tbl} PO Q8H as needed for pain 0 January 03, 2024 12:00am January 08, 2024 7:14am Start: 01-03-2024 End: 01-08-2024 albuterol 0.83 mg/ml inhalation solution (17 sources) beta2-Adrenergic Agonist Start: 04-05-2024 take 1 dose by inhalation every two hours as needed albuterol 2.5 mg/3 mL (0.083%) inhalation solution Dose : 2.5 mg = 3 mL, Inhalation, q2h, PRN for wheezing/SOB, 0 Refill(s) Start Date: 04/05/24 Status: Ordered Start: 11-13-2023 albuterol 0 Re fill(s) Start Date: 11/13/23 Status: Ordered Start: 11-03-2023 End: 06-01-2024 take 2.5 mg by inhalation every two hours as needed for dyspnea Albuterol Sulfate 2.5 mg /3 mL (0.083 %) Solution For Nebulization Discontinued 2.5 mg INHALATION EVERY 2 HOURS NEEDED as needed for Dyspnea, wheezing 0 0 November 03, 2023 12:00am June 01, 2024 1:39pm Start: 11-03-2023 End: 06-01-2024 amLODIPine 5 mg oral tablet (20 sources) Dihydropyridine Calcium Channel Maren Start: 09-02-2023 take 1 tablet by mouth once daily Amlodipine 5 mg tablet Active 5 mg PO DAILY October 28, 2023 12:00am AFIB Start: 07-07-2023 amLODIPine 5 m g oral tablet Dose : 5 mg = 1 tab(s), Oral, qDay, # 90 tab(s), 0 Refill(s), Pharmacy: [facility], 185.4, cm, 04/23/23 9:20:00 EDT, Height, kg, 04/23/23 9:20:00 EDT, Dosing Weight Start Date: 07/07/23 Status: Ordered Start: 01-03-2023 End: 07-02-2023 amLODIPine 5 mg oral tablet Dose : 5 mg = 1 tab(s), Oral, qDay, # 90 tab(s), 1 Refill(s), Pharmacy: [facility], 182.9, cm, 07/10/22 9:29:00 EST, Height, kg, 07/10/22 9:29:00 EST, Dosing Weight Start Date: 01/03/23 Stop Date: 07/02/23 Status: Ordered Start: 07-14-2021 End: 09-01-2022 amLODIPine 5 mg oral tablet Dose : 5 mg = 1 tab(s), Oral, qDay, # 30 tab(s), 5 Refill(s), Pharmacy: [facility], 186, cm, 03/05/22 13:30:00 EDT, Height, kg, 03/05/22 13:30:00 EDT, Dosing Weight Start Date: 03/05/22 Stop Date: 09/01/22 Status: Ordered Start: 06-09-2021 amLODIPine 5 m g oral tablet Dose : 5 mg = 1 tab(s), Oral, qDay, # 30 tab(s), 0 Refill(s), Pharmacy: [facility], 184, cm, 06/06/21 11:53:00 EST, Height, kg, 06/06/21 11:53:00 EST, Dosing Weight Start Date: 06/09/21 Status: Ordered apixaban 5 mg oral tablet (20 sources) Factor Xa Inhibitor Start: 10-26-2023 take 1 tablet by mouth twice daily Apixaban (Eliquis) 5 mg tablet Active 5 mg PO TWICE A DAY October 28, 2023 12:00am AFIB Start: 10-11-2023 take 1 tablet by sahra th every twelve hours ELIQUIS 5 mg tab(s) Take 1 tablet by mouth every 12 hours. 10/11/2023 Active Start: 07-07-2023 Eliquis 5 mg o ral tablet Dose : 5 mg = 1 tab(s), Oral, BID, # 180 tab(s), 1 Refill(s), Pharmacy: [facility], 185.4, cm, 04/23/23 9:20:00 EDT, Height, 172, kg, 04/23/23 9:20:00 EDT, Dosing Weight Start Date: 07/07/23 Status: Ordered Start: 01-03-2023 Eliquis 5 mg o ral tablet Dose : 5 mg = 1 tab(s), Oral, BID, # 180 tab(s), 1 Refill(s), Pharmacy: [facility], 182.9, cm, 07/10/22 9:29:00 EST, Height, 166.8, kg, 07/10/22 9:29:00 EST, Dosing Weight Start Date: 01/03/23 Status: Ordered Start: 04-02-2022 Eliquis 5 mg o ral tablet Dose : 5 mg = 1 tab(s), Oral, BID, # 60 tab(s), 4 Refill(s), Pharmacy: [facility], 186, cm, 03/05/22 13:30:00 EDT, Height, 162.2, kg, 03/05/22 13:30:00 EDT, Dosing Weight Start Date: 04/02/22 Status: Ordered Start: 03-04-2022 Eliquis 5 mg o ral tablet Dose : 5 mg = 1 tab(s), Oral, BID, # 60 tab(s), 0 Refill(s), Pharmacy: [facility], 184, cm, 11/06/21 13:22:00 EDT, Height, 161.8 Start Date: 03/04/22 Status: Ordered Start: 06-26-2021 Eliquis 5 mg o ral tablet Dose : 5 mg = 1 tab(s), Oral, Daily, 0 Refill(s), 150.3 Start Date: 06/26/21 Status: Ordered Start: 06-06-2021 End: 09-04-2021 apixaban 5 mg oral tablet [1 0mg BID x 7days-then 5mg BID], Oral, BID, as directed on package labeling, # 74 tab(s), 2 Refill(s), DVT Treatment Dosing, Pharmacy: [facility], 184, cm, 06/06/21 11:53:00 EST, Height, 153.8, kg, 06/06/21 11:53:00 EST, Dosing Weight Start Date: 06/06/21 Stop Date: 09/04/21 Status: Ordered atorvastatin 20 mg oral tablet (20 sources) HMG-CoA Reductase Inhibitor Start: 01-03-2023 End: 04-06-2024 take 1 tablet by mouth at bedtime Atorvastatin 20 mg tablet Active 20 mg PO AT BEDTIME October 28, 2023 12:00am HYPERLIPIDEMIA Budesonide-Formoter ol (20 sources) Corticosteroid, beta2-Adrenergic Agonist Start: 09-16-2024 Budesonide-Formotero l (Symbicort) 160-4.5 mcg/actuation HFA aerosol inhaler Active 1 NMA INHALATION DAILY September 16, 2024 1:00am COPD Start: 09-16-2024 Start: 09-16-2024 Budesonide-For moterol (Symbicort) 160-4.5 mcg/actuation HFA aerosol inhaler Active 1 NMA INHALATION DAILY September 16, 2024 1:00am Start: 01-03-2024 End: 08-16-2024 Start: 01-03-2024 End: 08-16-2024 Budesonide-Formoterol (Symbi yoandy) 160-4.5 mcg/actuation HFA aerosol inhaler Discontinued 2 NMA INHALATION DAILY January 03, 2024 12:00am August 16, 2024 9:28am Start: 10-28-2023 End: 11-03-2023 Start: 10-28-2023 End: 11-03-2023 Budesonide-Formoterol [Budesonide-Formoterol Hfa 160 Mcg-4.5 Mcg/Actuation Aerosol Inhaler] (Budesonide-Formoterol Hfa 160 Mcg-4.5 Mcg/Actuation ) 160-4.5 mcg/actuation HFA aerosol inhaler Discontinued 2 NMA INHALATION DAILY October 28, 2023 12:00am November 03, 2023 4:38pm Start: 10-28-2023 End: 11-03-2023 take 1 puff(s) by inhalation once daily Budesonide-Formoterol [Budesonide-Formoterol Hfa 160 Mcg-4.5 Mcg/Actuation Aerosol Inhaler] (Budesonide-Formoterol Hfa 160 Mcg-4.5 Mcg/Actuation ) 160-4.5 mcg/actuation HFA aerosol inhaler Discontinued 2 PUFF INHALATION DAILY October 28, 2023 12:00am November 03, 2023 4:38pm Start: 10-28-2023 take 1 puff(s) by in halation once daily Budesonide-Formoterol [Budesonide-Formoterol Hfa 160 Mcg-4.5 Mcg/Actuation Aerosol Inhaler] (Budesonide-Formoterol Hfa 160 Mcg-4.5 Mcg/Actuation ) 160-4.5 mcg/actuation HFA aerosol inhaler Active 2 PUFF INHALATION DAILY October 28, 2023 12:00am Start: 10-11-2023 take 2 puff(s) by in halation once daily SYMBICORT 160-4.5 mcg/actuation inhaler INHALE 2 PUFFS EVERY DAY 10/11/2023 Active Calcium (9 sources) Phosphate Binder, Calcium Start: 02-09-2019 calcium (as carbonate) 600 mg oral tablet Dose : 600 mg = 1 tab(s), Oral, BIDM, 0 Refill(s) Start Date: 02/09/19 Status: Ordered cefdinir 300 mg oral capsule (16 sources) Cephalosporin Antibacterial Start: 01-06-2025 take 1 capsule by mouth twice daily Cefdinir 300 mg capsule Active 300 mg PO TWICE A DAY 14 0 January 06, 2025 12:00am Start: 09-17-2024 End: 10-10-2024 take 1 capsule by mouth every twelve hours Cefdinir 300 mg capsule Discontinued 300 mg PO Q12H 14 0 September 17, 2024 1:00am October 10, 2024 4:47pm take 300 mg by mouth twice daily CEFDINIR ORAL Take 300 mg by mouth two times a day. Active cephalexin 500 mg oral capsule (9 sources) Cephalosporin Antibacterial Start: 01-12-2025 End: 01-19-2025 cephalexin 500 mg oral capsule Dose : 500 mg = 1 cap(s), Oral, QID, X 7 day(s), # 28 cap(s), 0 Refill(s), 01/19/25 8:00:00 AM EDT, 115.6 Start Date: 01/12/25 Stop Date: 01/19/25 Status: Ordered Quantity: 28.0 Unit: cap(s) Repeat number: 1 Start: 04-05-2024 End: 04-15-2024 cephalexin 500 mg oral capsu le Dose : 500 mg = 1 cap(s), Oral, QID, X 10 day(s), # 40 cap(s), 0 Refill(s), 04/15/24 12:37:00 AM EDT, 134.1 Start Date: 04/05/24 Stop Date: 04/15/24 Status: Ordered Start: 01-04-2023 End: 01-11-2023 cephalexin 500 mg oral table t Dose : 500 mg = 1 tab(s), Oral, QID, X 7 day(s), # 28 tab(s), 0 Refill(s), 01/11/23 9:00:00 EDT, Open wound of lower leg, 171 Start Date: 01/04/23 Stop Date: 01/11/23 Status: Ordered Start: 06-23-2021 End: 06-30-2021 cephalexin 500 mg oral capsu le Dose : 500 mg = 1 cap(s), Oral, q8h, please provide additional 3 days to existing script, X 3 day(s), # 9 cap(s), 0 Refill(s), 06/29/21 9:32:00 EST, Pharmacy: [id number], Perirectal abscess, 184, cm, 06/23/21 14:18:00 EST, Height, 149.4, kg... Start Date: 06/26/21 Stop Date: 06/29/21 Status: Ordered Santyl (8 sources) Collagen-specific Enzyme Start: 04-06-2024 Ovidio l Topical, qDay, 0 Refill(s), 131.9 Start Date: 04/06/24 Status: Ordered Repeat number: 1 Start: 04-06-2024 Santyl Topical , qDay, 0 Refill(s), 131.9 Start Date: 04/06/24 Status: Ordered Start: 11-13-2023 Santyl 250 uni ts/g topical ointment Apply 1 priscilla, Topical, qDay, # 15 gram(s), 0 Refill(s), Ointment, 157 Start Date: 11/13/23 Status: Ordered dapagliflozin 10 mg oral tablet (9 sources) Sodium-Glucose Cotransporter 2 Inhibitor Start: 04-25-2021 Farxiga 10 mg oral tablet Dose : 10 mg = 1 tab(s), Oral, qDay, # 90 tab(s), 0 Refill(s) Start Date: 04/25/21 Status: Ordered DilTIAZem (Eqv-Cardizem CD) 180 mg/24 hours oral capsule, extended release (2 sources) Start: 10-26-2023 DilTIAZem (Eqv-Cardizem CD) 180 mg/24 hours oral capsule, extended release 0 Refill(s) Start Date: 10/26/23 Status: Ordered docusate sodium 100 mg oral tablet (12 sources) Start: 04-05-2024 docusate sodiu m 100 mg oral tablet Dose : 100 mg = 1 tab(s), Oral, BID, PRN as needed for constipation, 0 Refill(s) Start Date: 04/05/24 Status: Ordered Start: 01-03-2024 End: 06-01-2024 take 1 capsule by mouth twice daily Docusate Sodium (Col-Rite) 100 mg capsule Discontinued 100 mg PO TWICE A DAY January 03, 2024 12:00am June 01, 2024 1:49pm donepezil hydrochloride 5 mg oral tablet (12 sources) Start: 08-16-2024 take 1 tablet by mouth at bedtime Donepezil 5 mg tablet Active 5 mg PO AT BEDTIME August 16, 2024 1:00am MEMORY Start: 08-16-2024 doxycycline hyclate 100 mg oral capsule (20 sources) Tetracycline-class Drug Start: 04-07-2024 End: 04-14-2024 doxycycline hyclate 100 mg oral capsule Dose : 100 mg = 1 cap(s), Oral, BID, X 7 day(s), # 14 cap(s), 0 Refill(s), 04/14/24 4:05:00 PM EDT, Pharmacy: [facility], 188, cm, 04/06/24 15:12:00 EDT, Height, 131.9, kg, 04/06/24 15:12:00 EDT, Dosing Weight Start Date: 04/07/24 Stop Date: 04/14/24 Status: Ordered Start: 11-13-2023 End: 11-23-2023 doxycycline hyclate 100 mg o ral capsule Dose : 100 mg = 1 cap(s), Oral, BID, X 10 day(s), # 20 cap(s), 0 Refill(s), 11/23/23 9:40:00 PM EDT, 157 Start Date: 11/13/23 Stop Date: 11/23/23 Status: Ordered Start: 10-28-2023 End: 11-03-2023 take 1 capsule by mouth twice daily Doxycycline Hyclate 100 mg capsule Discontinued 100 mg PO TWICE A DAY October 28, 2023 12:00am November 03, 2023 4:38pm Start: 10-25-2023 End: 10-30-2023 take 1 tablet by mouth twice daily doxycycline hyclate 100 mg oral tablet Dose : 100 mg =, Oral, BID, X 5 day(s), # 10 EA, 0 Refill(s), 10/30/23 1:23:00 PM EDT, Pharmacy: [facility], 188, cm, 10/13/23 19:59:00 EDT, Height, 169.2, kg, 10/22/23 6:55:00 EDT, Dosing Weight Start Date: 10/25/23 Stop Date: 10/30/23 Status: Ordered Start: 03-17-2019 End: 10-28-2023 take 1 capsule by mouth twice daily Doxycycline Monohydrate 100 MG capsule Discontinued 100 mg PO TWICE A DAY March 17, 2019 12:00am October 28, 2023 6:13pm fenofibrate 145 mg oral tablet (16 sources) Peroxisome Proliferator Receptor alpha Agonist Start: 01-19-2022 End: 07-18-2022 fenofibrate 145 mg oral tablet Dose : 145 mg = 1 tab(s), Oral, qDay, # 30 tab(s), 5 Refill(s), Pharmacy: [id number], 184, cm, 11/06/21 13:22:00 EDT, Height, kg, 11/06/21 13:22:00 EDT, Dosing Weight Start Date: 01/19/22 Stop Date: 07/18/22 Status: Ordered Start: 07-14-2021 End: 01-10-2022 fenofibrate 145 mg oral tabl et Dose : 145 mg = 1 tab(s), Oral, qDay, # 30 tab(s), 5 Refill(s), Pharmacy: [id number], 184.5, cm, 07/14/21 8:31:00 EST, Height, kg, 07/14/21 8:31:00 EST, Dosing Weight Start Date: 07/14/21 Stop Date: 01/10/22 Status: Ordered Start: 12-10-2020 End: 06-08-2021 fenofibrate 145 mg oral tabl et Dose : 145 mg = 1 tab(s), Oral, qDay, # 30 tab(s), 5 Refill(s), Pharmacy: [id number], 185.9, cm, 12/05/20 8:53:00 EDT, Height, kg, 12/05/20 8:53:00 EDT, Dosing Weight Start Date: 12/10/20 Stop Date: 06/08/21 Status: Ordered FreeStyle Anai 2 Agate (5 sources) Start: 04-05-2024 FreeStyle Libr e 2 Agate See Instructions, Use reader to scan sensor daily for blood sugar checks. Scan at least once every 8 hours, # 1 EA, 0 Refill(s), 133 Start Date: 04/05/24 Status: Ordered Quantity: 1.0 Unit: EA Repeat number: 1 Start: 04-05-2024 FreeStyle Libr e 2 Agate See Instructions, Use reader to scan sensor daily for blood sugar checks. Scan at least once every 8 hours, # 1 EA, 0 Refill(s), 133 Start Date: 04/05/24 Status: Ordered FreeStyle Agate 14 day sens or (5 sources) Start: 04-05-2024 FreeStyle Read er 14 day sensor See Instructions, 1 month supply, # 2 EA, 0 Refill(s), 133 Start Date: 04/05/24 Status: Ordered Quantity: 2.0 Unit: EA Repeat number: 1 Start: 04-05-2024 FreeStyle Read er 14 day sensor See Instructions, 1 month supply, # 2 EA, 0 Refill(s), 133 Start Date: 04/05/24 Status: Ordered gabapentin 100 mg oral capsule (20 sources) Anti-epileptic Agent Start: 08-16-2024 take 2 capsules by mouth three times daily Gabapentin 100 mg capsule Active 200 mg PO THREE TIMES A DAY August 16, 2024 1:00am NEUROPATHY Start: 10-13-2023 End: 08-16-2024 take 1 capsule by mouth three times daily Gabapentin 300 mg capsule Discontinued 300 mg PO THREE TIMES A DAY October 28, 2023 12:00am August 16, 2024 9:31am Gabapentin 100 m g tab Take by mouth. Active Glucose (1 source) Start: 10-13-2023 glucose 50% in travenous solution Dose : 12.5 gram(s) = 25 mL, IV Push, AsDirected, PRN Hypoglycemia, 0 Refill(s) Start Date: 10/13/23 Status: Ordered heparin sod,porcine/0.9 % NaCl (HEPARIN FLUSH INTRAVENOUS) (1 source) heparin sod,porc ine/0.9 % NaCl (HEPARIN FLUSH INTRAVENOUS) Inject intravenously. Active 3 ml insulin glargine 100 unt/ml pen injector (20 sources) Insulin Analog Start: 10-08-2024 LANTUS SOLOSTA R U-100 INSULIN 100 unit/mL (3 mL) 10/08/2024 Active Start: 06-01-2024 Insulin Glargi ne (Lantus Solostar U-100 Insulin) 100 unit/mL (3 mL) insulin pen Active 23 U SC AT BEDTIME June 01, 2024 1:00am DIABETIC Start: 06-01-2024 Start: 06-01-2024 Insulin Glargi ne (Lantus Solostar U-100 Insulin) 100 unit/mL (3 mL) insulin pen Active 26 U SC DAILY June 01, 2024 1:00am sliding scale Start: 10-28-2023 End: 11-03-2023 Insulin Glargine 100 unit/mL (3 mL) insulin pen Discontinued 75 U SC DAILY October 28, 2023 12:00am November 03, 2023 4:38pm Start: 10-28-2023 End: 11-03-2023 Start: 10-13-2023 inject 1 dose by sub cutaneous injection once daily Lantus 100 units/mL10 ml vial solution Dose : 26 unit(s) =, Subcutaneous (INT), qDay, 0 Refill(s) Start Date: 10/13/23 Status: Ordered Repeat number: 1 Insulin Glargine-Yfgn (1 source) Start: 11-03-2023 Insulin Glargi ne-Yfgn Active 40 UNIT SC DAILY 0 November 03, 2023 12:00am 3 ml insulin lispro 100 unt/ml pen injector (20 sources) Insulin Analog Start: 08-16-2024 Insulin Lispro (Humalog Kwikpen Insulin) 100 unit/mL insulin pen Active 0 U SC THREE TIMES A DAY August 16, 2024 1:00am DIABETIC sliding scale Please contact the information source for Protocol details. Start: 08-16-2024 Start: 08-16-2024 Insulin Lispro (Humalog Kwikpen Insulin) 100 unit/mL insulin pen Active 1 U SC THREE TIMES A DAY August 16, 2024 1:00am sliding scale Start: 12-22-2023 End: 06-01-2024 Insulin Lispro 100 unit/mL s olution Discontinued 1 sliding scale dose SC Use as Directed December 22, 2023 12:00am June 01, 2024 1:48pm Start: 10-28-2023 End: 11-03-2023 Insulin Lispro 100 unit/mL i nsulin pen Discontinued 0 SC THREE TIMES A DAY October 28, 2023 12:00am November 03, 2023 4:38pm GIVE 0-5 UNITS subcutaneously three times a day; Start: 10-28-2023 End: 11-03-2023 Start: 10-28-2023 End: 11-03-2023 Insulin Lispro Discontinued 0 SC THREE TIMES A DAY October 28, 2023 12:00am November 03, 2023 4:38pm GIVE 0-5 UNITS subcutaneously three times a day; Start: 10-13-2023 HumaLOG 100 un its/mL subcutaneous solution Give 0-5 units/dose, Subcutaneous, TIDAC, 0 Refill(s) Start Date: 10/13/23 Status: Ordered lurasidone hydrochloride 40 mg oral tablet (9 sources) Atypical Antipsychotic Start: 10-05-2024 lurasid one (LATUDA) 40 mg tablet 10/05/2024 Active Start: 08-16-2024 Lurasidone 40 mg tablet Active 40 mg PO AT BEDTIME August 16, 2024 1:00am MOOD must administer with food (at least 350 calories) Magnesium Hydroxide (1 source) Start: 01-05-2025 take 1 mL by mouth once daily as needed for constipation Magnesium Hydroxide (Dulcolax (Magnesium Hydroxide)) 400 mg/5 mL suspension Active 30 mL PO DAILY as needed for constipation January 05, 2025 12:00am mecobalamin (1 source) Start: 01-05-2025 take 1 tablet by sahra th once daily Mecobalamin (Vitamin B12) 500 mcg tablet,chewable Active 500 ug PO DAILY January 05, 2025 12:00am melatonin 5 mg oral tablet (20 sources) Start: 04-05-2024 melatonin 5 mg oral tablet Dose : 5 mg = 1 tab(s), Oral, qHS, PRN as needed for insomnia, 0 Refill(s) Start Date: 04/05/24 Status: Ordered Start: 10-28-2023 take 2 tablets by mo uth at bedtime Melatonin 3 mg tablet Active 6 mg PO AT BEDTIME October 28, 2023 12:00am INSOMNIA Start: 10-28-2023 Start: 10-13-2023 melatonin 3 mg oral tablet Dose : 3 mg = 1 tab(s), Oral, qHS, PRN Sleep, 0 Refill(s) Start Date: 10/13/23 Status: Ordered Repeat number: 1 MOUNJARO 5 mg/0.5 mL pen injector (9 sources) Start: 10-11-2023 MOUNJARO 5 mg/ 0.5 mL pen injector INJECT 5MGS SUBCUTANEOUS EVERY WEEK ROTATE INJECTION SITES 10/11/2023 Active Start: 10-11-2023 MOUNJARO 5 mg/ 0.5 mL pen injector INJECT 5MGS SUBCUTANEOUS EVERY WEEK ROTATE INJECTION SITES 0 10/11/2023 Active O2 (4 sources) Start: 04-23-2023 O2 O2, 2L at hs or whenever laying down, 0 Refill(s), 171.36 Start Date: 04/23/23 Status: Ordered Zofran (1 source) Serotonin-3 Receptor Antagonist Start: 10-13-2023 take 1 dose intravenously every four hours as needed Zofran Dose : 4 mg = 2 mL, IV Push, q4h, PRN Nausea/Vomiting , 0 Refill(s) Start Date: 10/13/23 Status: Ordered microencapsulated potassium chloride 10 meq extended release oral tablet (20 sources) Start: 10-05-2024 potassium chloride ER (KLOR-CON M10) 10 mEq tablet 10/05/2024 Active Start: 08-16-2024 take 1 capsule by mo [facility] twice daily Potassium Chloride 10 mEq capsule, extended release Active 10 meq PO TWICE A DAY August 16, 2024 1:00am POTASSIUM Start: 11-13-2023 Potassium Chlo ride (Eqv-K-Tab) 20 mEq oral tablet, extended release Dose : 20 mEq = 1 tab(s), Oral, BID, 0 Refill(s) Start Date: 04/05/24 Status: Ordered Repeat number: 1 Start: 11-03-2023 End: 06-01-2024 take 1 tablet by mouth twice daily at mealtime Potassium Chloride 20 mEq Tablet,Er Particles/Crystals Discontinued 20 meq PO TWICE DAILY WITH MEALS 0 0 November 03, 2023 12:00am June 01, 2024 1:48pm rivaroxaban 15 mg oral tablet (3 sources) Factor Xa Inhibitor Start: 06-09-2021 End: 06-30-2021 Xarelto 15 mg oral tablet Dose : 15 mg = 1 tab(s), Oral, BID, with breakfast and supper, # 42 tab(s), 0 Refill(s), Pharmacy: [id number], 184, cm, 06/06/21 11:53:00 EST, Height, 153.8, kg, 06/06/21 11:53:00 EST, Dosing Weight Start Date: 06/09/21 Stop Date: 06/30/21 Status: Ordered Senna Plus 50 mg-8.6 mg oral tablet (5 sources) Start: 04-05-2024 take 1 tablet by mouth once daily at bedtime Senna Plus 50 mg-8.6 mg oral tablet Dose = 2 tab(s), Oral, qHS, 0 Refill(s) Start Date: 04/05/24 Status: Ordered Repeat number: 1 Start: 04-05-2024 take 1 tablet by [facility] once daily at bedtime Senna Plus 50 mg-8.6 mg oral tablet Dose = 2 tab(s), Oral, qHS, 0 Refill(s) Start Date: 04/05/24 Status: Ordered sulfamethoxazole 800 mg / trimethoprim 160 mg oral tablet (6 sources) Dihydrofolate Reductase Inhibitor Antibacterial, Sulfonamide Antimicrobial Start: 04-05-2024 End: 04-15-2024 take 1 tablet by mouth twice daily Bactrim DS 800 mg-160 mg oral tablet Dose = 1 tab(s), Oral, BID, X 10 day(s), # 20 tab(s), 0 Refill(s), 134.1 Start Date: 04/05/24 Stop Date: 04/15/24 Status: Ordered Start: 01-04-2023 End: 01-11-2023 take 1 tablet by mouth twice daily Bactrim DS 800 mg-160 mg oral tablet Dose = 1 tab(s), PO, BID, X 7 day(s), # 14 tab(s), 0 Refill(s), 171 Start Date: 01/04/23 Stop Date: 01/11/23 Status: Ordered Start: 06-23-2021 End: 06-30-2021 Bactrim DS 800 mg-160 mg ora l tablet Dose = 1 tab(s), Oral, BID, please provide additional 3 days to existing script, X 3 day(s), # 6 tab(s), 0 Refill(s), Pharmacy: [id number], 184, cm, 06/23/21 14:18:00 EST, Height, 149.4, kg, 06/26/21 8:54:00 EST, Dosing Weight Start Date: 06/26/21 Stop Date: 06/29/21 Status: Ordered tamsulosin hydrochloride 0.4 mg oral capsule (20 sources) alpha-Adrenergic Maren Start: 12-22-2023 take 1 capsule by mouth at bedtime Tamsulosin 0.4 mg capsule Active 0.4 mg PO AT BEDTIME December 22, 2023 12:00am PROSTATIC HYPERPLASIA tamsulosin HCl ( FLOMAX ORAL) Flomax Oral Active tamsulosin HCl ( FLOMAX ORAL) Flomax Oral 0 Active torsemide 10 mg oral tablet (15 sources) Loop Diuretic Start: 01-06-2025 take 1 tablet by mouth once daily Torsemide 10 mg tablet Active 10 mg PO DAILY 1 0 January 06, 2025 12:00am Start: 08-16-2024 End: 01-06-2025 take 1 tablet by mouth twice daily Torsemide 20 mg tablet Discontinued 20 mg PO TWICE A DAY August 16, 2024 1:00am January 06, 2025 10:54am HEART traZODone hydrochloride 100 mg oral tablet (20 sources) Serotonin Reuptake Inhibitor Start: 09-16-2024 take 1 tablet by mouth at bedtime Trazodone 100 mg tablet Active 100 mg PO AT BEDTIME September 16, 2024 1:00am insomnia Start: 09-16-2024 Start: 01-03-2024 End: 06-01-2024 Start: 07-29-2021 End: 06-01-2024 take 1 tablet by mouth at bedtime Trazodone 50 mg tablet Discontinued 50 mg PO AT BEDTIME January 03, 2024 12:00am June 01, 2024 1:48pm Start: 12-05-2020 End: 06-03-2021 traZODone 50 mg oral tablet Dose : 50 mg = 1 tab(s), Oral, qHS, # 30 tab(s), 5 Refill(s), Pharmacy: [facility], 185.9, cm, 12/05/20 8:53:00 EDT, Height, kg, 12/05/20 8:53:00 EDT, Dosing Weight Start Date: 12/05/20 Stop Date: 06/03/21 Status: Ordered vancomycin HCl in 5 % dextro se (VANCOMYCIN IN DEXTROSE 5 % INTRAVENOUS) (1 source) vancomycin HCl i n 5 % dextrose (VANCOMYCIN IN DEXTROSE 5 % INTRAVENOUS) Inject intravenously. Active Vitamin C 250 mg oral tablet (5 sources) Start: 04-05-2024 Vitamin C 250 mg oral tablet Dose : 250 mg = 1 tab(s), Oral, qDay, 0 Refill(s) Start Date: 04/05/24 Status: Ordered Repeat number: 1 Start: 04-05-2024 Vitamin C 250 mg oral tablet Dose : 250 mg = 1 tab(s), Oral, qDay, 0 Refill(s) Start Date: 04/05/24 Status: Ordered Vitamin C 500 mg oral tablet (20 sources) Start: 02-09-2019 Vitamin C 500 mg oral tablet Dose : 500 mg = 1 tab(s), Oral, qDay, # 30 tab(s), 0 Refill(s) Start Date: 02/09/19 Status: Ordered warfarin sodium 5 mg oral tablet (7 sources) Vitamin K Antagonist Start: 07-07-2021 warfarin 5 mg oral tablet Dose : 5 mg = 1 tab(s), Oral, qDay, # 30 tab(s), 3 Refill(s), Pharmacy: [id number], 184, cm, 06/23/21 14:18:00 EST, Height, kg, 06/26/21 8:54:00 EST, Dosing Weight Start Date: 07/07/21 Status: Ordered (20 sources) Start: 01-05-2025 Start: 08-16-2024 Start: 01-08-2024 End: 06-01-2024 Start: 12-22-2023 End: 08-16-2024 Start: 11-29-2023 End: 12-22-2023 Start: 11-03-2023 End: 06-01-2024 Start: 11-03-2023 End: 12-22-2023 Start: 11-03-2023 End: 06-01-2024 Start: 10-28-2023 End: 06-01-2024 Start: 10-28-2023 End: 11-03-2023 Start: 03-17-2019 End: 10-28-2023 Start: 03-17-2019 End: 10-28-2023 Completed/Discontinued Medications Medication Drug Class(es) Dates Sig (Normalized) Sig (Original) acetaminophen 325 mg / oxyCODONE hydrochloride 5 mg oral tablet (20 sources) Opioid Agonist Start: 06-05-2024 End: 08-16-2024 Start: 10-28-2023 End: 11-03-2023 Start: 10-28-2023 End: 11-03-2023 take 1 tablet by mouth every six hours Oxycodone-Acetaminophen Discontinued 1 TABLET PO EVERY 6 HOURS October 28, 2023 12:00am November 03, 2023 4:32pm Start: 10-25-2023 End: 08-16-2024 Oxycodone-Acetaminophen (End ocet) 5-325 mg tablet Discontinued 1 {tbl} PO EVERY 6 HOURS 28 7 0 June 05, 2024 August 16, 2024 9:33am Other acute postprocedural pain Other acute postprocedural pain pain Start: 10-13-2023 Percocet 325/5 Dose = 2 tab(s), Oral, q4h, PRN Pain, scale 4-6, 0 Refill(s), 169 Start Date: 10/13/23 Status: Ordered amiodarone hydrochloride 200 mg oral tablet (20 sources) Antiarrhythmic Start: 11-29-2023 End: 01-03-2024 take 1 tablet by mouth twice daily Amiodarone 200 mg tablet Discontinued 200 mg PO TWICE A DAY November 29, 2023 12:00am January 03, 2024 11:08am Start: 10-05-2023 amiodarone 200 mg oral tablet Dose : 200 mg = 1 tab(s), Oral, BID, # 180 tab(s), 1 Refill(s), Pharmacy: [facility], 188, cm, 10/03/23 21:49:00 EDT, Height, kg, 10/04/23 5:18:00 EDT, Dosing Weight Start Date: 10/05/23 Status: Ordered Start: 04-14-2023 amiodarone 200 mg oral tablet Dose : 200 mg = 1 tab(s), Oral, BID, # 180 tab(s), 1 Refill(s), Pharmacy: [facility], 182.9, cm, 03/16/23 6:55:00 EDT, Height, kg, 03/16/23 6:55:00 EDT, Dosing Weight Start Date: 04/14/23 Status: Ordered Start: 11-19-2022 amiodarone 200 mg oral tablet Dose : 200 mg = 1 tab(s), Oral, BID, # 60 tab(s), 5 Refill(s), Pharmacy: [facility], 182.9, cm, 07/10/22 9:29:00 EST, Height, kg, 07/10/22 9:29:00 EST, Dosing Weight Start Date: 11/19/22 Status: Ordered amLODIPine 5 mg / hydroCHLOROthiazide 25 mg / olmesartan medoxomil 40 mg oral tablet (7 sources) Thiazide Diuretic, Dihydropyridine Calcium Channel Maren, Angiotensin 2 Receptor Maren Start: 12-02-2020 End: 01-01-2021 take 1 tablet by mouth once daily amlodipine/hydrochlorothiazide/olmesarta n 5 mg-25 mg-40 mg oral tablet Dose = 1 tab(s), Oral, Daily, # 30 tab(s), 0 Refill(s), Pharmacy: [id number], 188, cm, 08/07/20 12:54:00 EST, Height, kg, 08/07/20 12:54:00 EST, Dosing Weight Start Date: 12/02/20 Stop Date: 01/01/21 Status: Ordered amoxicillin 875 mg / clavulanate 125 mg oral tablet (11 sources) Penicillin-class Antibacterial Start: 01-07-2024 End: 06-01-2024 Amoxicillin-Pot Clavulanate 875-125 mg tablet Discontinued 1 {tbl} PO TWICE A DAY 14 January 07, 2024 12:00am June 01, 2024 1:40pm Start: 01-07-2024 End: 06-01-2024 Ttrbj-Motj-Umnrw-Collag-Mv-M in (Santhosh (With Collagen)) 7-7-1.5 gram Powder In Packet (17 sources) Start: 01-08-2024 End: 06-01-2024 Ymoqa-Crlb-Ounbk-Collag-Mv-M in (Santhosh (With Collagen)) 7-7-1.5 gram Powder In Packet Discontinued 1 NMA PO TWICE DAILY WITH MEALS 0 January 08, 2024 12:00am June 01, 2024 1:40pm Start: 01-08-2024 End: 06-01-2024 Kshkd-Szoa-Dbhbo-Collag-Mv-M in (Santhosh (With Collagen)) 7-7-1.5 gram Powder In Packet Discontinued 1 NMA PO TWICE DAILY WITH MEALS 0 January 08, 2024 12:00am June 01, 2024 1:40pm Start: 11-03-2023 End: 12-22-2023 Pzmur-Xcah-Xnhxg-Collag-Mv-M in (Santhosh (With Collagen)) 7-7-1.5 gram Powder In Packet Discontinued 1 NMA PO TWICE DAILY WITH MEALS 0 November 03, 2023 12:00am December 22, 2023 3:17pm Start: 11-03-2023 End: 12-22-2023 Bxpqh-Dhjf-Jznwe-Collag-Mv-M in (Santhosh (With Collagen)) 7-7-1.5 gram Powder In Packet Discontinued 1 NMA PO TWICE DAILY WITH MEALS 0 November 03, 2023 12:00am December 22, 2023 3:17pm Start: 11-03-2023 Lzjsx-Uadp-Lvy vi-Xxgaqy-Kx-Min (Santhosh (With Collagen)) 7-7-1.5 gram Powder In Packet Active 1 PACKET PO TWICE DAILY WITH MEALS November 03, 2023 12:00am ascorbic acid 250 mg oral tablet (20 sources) Vitamin C Start: 03-17-2019 End: 08-16-2024 take 1 tablet by mouth once daily Ascorbic Acid (Vitamin C) 250 mg tablet Discontinued 250 mg PO DAILY November 29, 2023 8:46am August 16, 2024 9:31am Start: 02-09-2019 Vitamin C 500 mg oral tablet Dose : 500 mg = 1 tab(s), Oral, qDay, # 30 tab(s), 0 Refill(s) Start Date: 02/09/19 Status: Ordered aspirin 81 mg chewable tablet (20 sources) Platelet Aggregation Inhibitor, Nonsteroidal Anti-inflammatory Drug Start: 11-13-2023 End: 12-13-2023 aspirin 81 mg oral tablet, chewable Dose : 81 mg = 1 tab(s), Chewed, qDay, 0 Refill(s) Start Date: 11/13/23 Stop Date: 12/13/23 Status: Ordered Repeat number: 1 Start: 05-26-2021 aspirin 81 mg oral delayed release tablet Dose : 81 mg = 1 tab(s), Oral, Daily, # 90 tab(s), 3 Refill(s), Pharmacy: [id number], 185.5, cm, 05/26/21 10:58:00 EST, Height, kg, 05/26/21 10:58:00 EST, Dosing Weight Start Date: 05/26/21 Status: Ordered Start: 03-17-2019 take 1 tablet by sahra th once daily Aspirin 81 MG tablet,delayed release (DR/EC) Active 81 mg PO DAILY March 17, 2019 12:00am AFIB aspirin 81 mg ca p Take by mouth. Active budesonide 0.25 mg/ml inhalation suspension (12 sources) Corticosteroid Start: 11-03-2023 End: 06-01-2024 take 0.5 mg by inhalation twice daily Budesonide 0.5 mg/2 mL Suspension For Nebulization Discontinued 0.5 mg INHALATION TWICE DAILY 0 0 November 03, 2023 12:00am June 01, 2024 1:49pm Start: 11-03-2023 End: 06-01-2024 budesonide-formoterol 160 mcg-4.5 mcg/inh Inhaler (20 sources) Start: 06-30-2023 End: 12-27-2023 take 1 dose by inhalation once daily budesonide-formoterol 160 mcg-4.5 mcg/inh Inhaler Dose = 2 puff(s), Inhalation, Daily, # 3 EA, 1 Refill(s), Pharmacy: [facility], 185.4, cm, 04/23/23 9:20:00 EDT, Height, kg, 04/23/23 9:20:00 EDT, Dosing Weight Start Date: 06/30/23 Stop Date: 12/27/23 Status: Ordered Start: 01-03-2023 End: 07-02-2023 take 1 dose by inhalation once daily budesonide-formoterol 160 mcg-4.5 mcg/inh Inhaler Dose = 2 puff(s), Inhalation, Daily, # 3 EA, 1 Refill(s), Pharmacy: [facility], 182.9, cm, 07/10/22 9:29:00 EST, Height, kg, 07/10/22 9:29:00 EST, Dosing Weight Start Date: 01/03/23 Stop Date: 07/02/23 Status: Ordered Start: 07-14-2021 End: 07-09-2022 take 1 dose by inhalation once daily budesonide-formoterol 160 mcg-4.5 mcg/inh Inhaler Dose = 2 puff(s), Inhalation, Daily, # 1 EA, 11 Refill(s), Pharmacy: [id number], 184.5, cm, 07/14/21 8:31:00 EST, Height, kg, 07/14/21 8:31:00 EST, Dosing Weight Start Date: 07/14/21 Stop Date: 07/09/22 Status: Ordered Start: 06-26-2021 take 1 dose by inhal ation once daily budesonide-formoterol 160 mcg-4.5 mcg/inh Inhaler Dose = 2 puff(s), Inhalation, Daily, 0 Refill(s) Start Date: 06/26/21 Status: Ordered bumetanide 1 mg oral tablet (20 sources) Loop Diuretic Start: 12-22-2023 End: 08-16-2024 Start: 10-28-2023 End: 11-03-2023 Start: 04-28-2023 End: 08-16-2024 take 1 tablet by mouth twice daily Bumetanide 1 mg tablet Discontinued 0.5 mg PO TWICE A DAY October 28, 2023 12:00am November 03, 2023 4:38pm Start: 03-16-2023 bumetanide 1 m g oral tablet Dose : 1 mg = 1 tab(s), Oral, BID, # 90 tab(s), 0 Refill(s), Pharmacy: [facility], 182.9, cm, 03/16/23 6:55:00 EDT, Height, kg, 03/16/23 6:55:00 EDT, Dosing Weight Start Date: 03/16/23 Status: Ordered carvedilol 25 mg oral tablet (20 sources) alpha-Adrenergic Maren, beta-Adrenergic Maren Start: 03-17-2019 End: 01-08-2024 take 1 tablet by mouth twice daily Carvedilol 25 MG tablet Discontinued 25 mg PO TWICE A DAY March 17, 2019 12:00am January 08, 2024 7:13am cefpodoxime 100 mg oral tablet (8 sources) Cephalosporin Antibacterial Start: 10-12-2024 End: 10-18-2024 take 1 tablet by mouth twice daily at mealtime Cefpodoxime 100 mg tablet Discontinued 100 mg PO TWICE A DAY 20 0 October 12, 2024 12:00am October 18, 2024 2:19pm ANTIBOTIC must administer with a meal/food 24 hr dilTIAZem hydrochloride 180 mg extended release oral capsule (20 sources) Calcium Channel Maren Start: 10-28-2023 End: 11-03-2023 take 1 capsule by mouth once daily Diltiazem Hcl 180 mg capsule,extended release 24hr Discontinued 180 mg PO DAILY October 28, 2023 12:00am November 03, 2023 4:30pm Start: 07-07-2023 Cardizem CD 18 0 mg/24 hours oral capsule, extended release Dose : 180 mg = 1 cap(s), Oral, qDay, # 90 cap(s), 3 Refill(s), Pharmacy: [facility], 185.4, cm, 04/23/23 9:20:00 EDT, Height, kg, 04/23/23 9:20:00 EDT, Dosing Weight Start Date: 07/07/23 Status: Ordered Start: 01-20-2023 Cardizem CD 18 0 mg/24 hours oral capsule, extended release Dose : 180 mg = 1 cap(s), Oral, qDay, # 30 cap(s), 5 Refill(s), Pharmacy: [facility], 182.9, cm, 01/20/23 9:05:00 EDT, Height Start Date: 01/20/23 Status: Ordered docusate sodium 50 mg / sennosides, long term 8.6 mg oral tablet (11 sources) Start: 06-01-2024 End: 08-16-2024 Sennosides-Docusate Sodium 8.6-50 mg tablet Discontinued 2 NMA PO AT BEDTIME June 01, 2024 1:00am August 16, 2024 9:34am empagliflozin 10 mg oral tablet (19 sources) Sodium-Glucose Cotransporter 2 Inhibitor Start: 02-01-2024 End: 08-16-2024 take 1 tablet by mouth once daily Empagliflozin (Jardiance) 10 mg tablet Discontinued 10 mg PO DAILY June 01, 2024 1:00am August 16, 2024 9:29am 0.4 ml enoxaparin sodium 100 mg/ml prefilled syringe (1 source) Low Molecular Weight Heparin Start: 11-13-2023 End: 11-27-2023 inject 0.4 mL by subcutaneous injection once daily Lovenox 40 mg/0.4 mL injectable solution Dose : 40 mg = 0.4 mL, Subcutaneous, qDay, # 5.6 mL, 0 Refill(s) Start Date: 11/13/23 Stop Date: 11/27/23 Status: Ordered ergocalciferol 1.25 mg oral capsule (11 sources) Provitamin D2 Compound Start: 06-01-2024 End: 08-16-2024 Ergocalciferol (Vitamin D2) 1,250 mcg (50,000 unit) capsule Discontinued 1250 ug PO FR June 01, 2024 1:00am August 16, 2024 9:29am Start: 06-01-2024 End: 08-16-2024 ET Mix (1 source) Start: 04-05-2024 ET Mix Apply 1 priscilla, Topical, TID, right buttock, 0 Refill(s), 133 Start Date: 04/05/24 Status: Ordered ferrous sulfate 325 mg oral tablet (20 sources) Start: 07-29-2021 ferrous sulfat e 325 mg (65 mg iron) EC tablet 07/29/2021 Active Start: 06-06-2021 End: 06-01-2024 take 1 tablet by mouth once daily Ferrous Sulfate (Feosol) 325 mg (65 mg iron) tablet Discontinued 325 mg PO DAILY October 28, 2023 12:00am June 01, 2024 1:49pm Fluticasone Propion-Salmeter ol (16 sources) Corticosteroid, beta2-Adrenergic Agonist Start: 08-16-2024 End: 09-16-2024 Start: 08-16-2024 End: 09-16-2024 Fluticasone Propion-Salmeter ol (Advair Diskus) 250-50 mcg/dose blister with device Discontinued 1 NMA INHALATION TWICE A DAY August 16, 2024 1:00am September 16, 2024 10:16pm Start: 04-05-2024 take 1 dose by inhal ation twice daily fluticasone-salmeterol 250 mcg-50 mcg inhalation powder Dose = 1 puff(s), Inhalation, BID, 0 Refill(s) Start Date: 04/05/24 Status: Ordered Repeat number: 1 Start: 04-05-2024 take 1 dose by inhal ation twice daily fluticasone-salmeterol 250 mcg-50 mcg inhalation powder Dose = 1 puff(s), Inhalation, BID, 0 Refill(s) Start Date: 04/05/24 Status: Ordered furosemide 40 mg oral tablet (20 sources) Loop Diuretic Start: 11-29-2023 End: 11-29-2023 take 1 tablet by mouth once daily Furosemide 40 mg tablet Discontinued 40 mg PO DAILY November 29, 2023 12:00am November 29, 2023 8:50am Start: 11-29-2023 End: 01-03-2024 take 1 tablet by mouth twice daily Furosemide 40 mg tablet Discontinued 40 mg PO TWICE A DAY November 29, 2023 8:50am January 03, 2024 11:07am Start: 10-26-2023 End: 11-03-2023 take 1 tablet by mouth once daily Furosemide 40 mg tablet Discontinued 40 mg PO DAILY October 28, 2023 12:00am November 03, 2023 4:31pm Start: 06-30-2023 furosemide 40 mg oral tablet Dose : 40 mg = 1 tab(s), Oral, qDay, # 90 tab(s), 2 Refill(s), Pharmacy: [facility], 185.4, cm, 04/23/23 9:20:00 EDT, Height, kg, 04/23/23 9:20:00 EDT, Dosing Weight Start Date: 06/30/23 Status: Ordered Start: 04-14-2023 furosemide 40 mg oral tablet Dose : 40 mg = 1 tab(s), Oral, qDay, # 30 tab(s), 2 Refill(s), Pharmacy: [facility], 182.9, cm, 03/16/23 6:55:00 EDT, Height, kg, 03/16/23 6:55:00 EDT, Dosing Weight Start Date: 04/14/23 Status: Ordered Start: 01-04-2023 Lasix 40 mg or al tablet Dose : 40 mg = 1 tab(s), Oral, BID, # 30 tab(s), 3 Refill(s), Pharmacy: [facility], 182.9, cm, 07/10/22 9:29:00 EST, Height, kg, 01/04/23 8:41:00 EDT, Dosing Weight Start Date: 01/04/23 Status: Ordered hydrALAZINE hydrochloride 50 mg oral tablet (20 sources) Arteriolar Vasodilator Start: 03-17-2019 End: 10-28-2023 take 1 tablet by mouth twice daily Hydralazine 50 MG tablet Discontinued 50 mg PO TWICE A DAY March 17, 2019 12:00am October 28, 2023 6:23pm sodium hypochlorite 2.5 mg/ml topical solution (11 sources) Start: 01-08-2024 End: 06-01-2024 Sodium Hypochlorite (Hysept) 0.25 % Solution Discontinued 1 NMA TOPICAL TWICE A DAY 0 0 January 08, 2024 12:00am June 01, 2024 1:48pm Please contact the information source for Protocol details. 3 ml insulin degludec 200 unt/ml pen injector (20 sources) Insulin Analog Start: 11-29-2023 End: 01-03-2024 Insulin Degludec (Tresiba Flextouch U-200) 200 unit/mL (3 mL) insulin pen Discontinued 94 U SC DAILY November 29, 2023 12:00am January 03, 2024 11:06am Start: 11-29-2023 End: 01-03-2024 Start: 10-03-2023 inject 1 dose by sub cutaneous injection once daily Tresiba FlexTouch 200 units/mL 3 mL subcutaneous solution Dose : 75 unit(s) =, Subcutaneous, qDay, 0 Refill(s) Start Date: 10/03/23 Status: Ordered Start: 05-12-2023 inject 1 dose by sub cutaneous injection once daily Tresiba FlexTouch 200 units/mL 3 mL subcutaneous solution Dose : 96 unit(s) =, Subcutaneous, qDay, rotate injection sites, # 18 mL, 6 Refill(s), Pharmacy: [facility], 185.4, cm, 04/23/23 9:20:00 EDT, Height, kg, 04/23/23 9:20:00 EDT, Dosing Weight Start Date: 05/12/23 Status: Ordered Start: 09-28-2022 inject 1 dose by sub cutaneous injection once daily Tresiba FlexTouch 200 units/mL 3 mL subcutaneous solution Dose : 96 unit(s) =, Subcutaneous, qDay, rotate injection sites, # 18 mL, 6 Refill(s), Pharmacy: [facility], 182.9, cm, 07/10/22 9:29:00 EST, Height Start Date: 09/28/22 Status: Ordered Start: 09-28-2022 inject 1 dose by sub cutaneous injection once daily Tresiba FlexTouch 200 units/mL 3 mL subcutaneous solution Dose : 94 unit(s) =, Subcutaneous, qDay, rotate injection sites, # 18 mL, 6 Refill(s), Pharmacy: [facility], 182.9, cm, 07/10/22 9:29:00 EST, Height Start Date: 09/28/22 Status: Ordered Start: 05-13-2022 inject 1 dose by sub cutaneous injection once daily Tresiba FlexTouch 200 units/mL 3 mL subcutaneous solution Dose : 88 unit(s) =, Subcutaneous, qDay, rotate injection sites, # 9 mL, 0 Refill(s) Start Date: 05/13/22 Status: Ordered 3 ml insulin detemir 100 unt/ml pen injector (20 sources) Insulin Analog Start: 02-12-2021 End: 06-12-2021 inject 1 dose by subcutaneous injection once daily Levemir FlexTouch 100 units/mL 3 mL Pen Dose : 77 unit(s) =, Subcutaneous, qDay, please only fill 2 pens for ozempic coupon card, # 24 mL, 3 Refill(s), Pharmacy: [id number], 185.9, cm, 12/05/20 8:53:00 EDT, Height, kg, 12/05/20 8:53:00 EDT, Dosing Weight Start Date: 02/12/21 Stop Date: 06/12/21 Status: Ordered Start: 02-12-2021 End: 06-12-2021 inject 1 dose by subcutaneous injection once daily Levemir FlexTouch 100 units/mL 3 mL Pen Dose : 77 unit(s) =, Subcutaneous, qDay, please only fill 2 pens for ozempic coupon card, # 24 mL, 3 Refill(s), Pharmacy: [facility], 185.9, cm, 12/05/20 8:53:00 EDT, Height, kg, 12/05/20 8:53:00 EDT, Dosing Weight Start Date: 02/12/21 Stop Date: 06/12/21 Status: Ordered Start: 03-17-2019 End: 10-28-2023 inject 75 [IU] by subcutaneous injection once daily Insulin Detemir U-100 100 UNIT/ML solution Discontinued 75 U SQ DAILY March 17, 2019 12:00am October 28, 2023 6:23pm Insulin Glargine-Yfgn 100 unit/mL (3 mL) Insulin Pen (8 sources) Start: 11-03-2023 End: 06-01-2024 Insulin Glargine-Yfgn 100 unit/mL (3 mL) Insulin Pen Discontinued 40 U SC DAILY 0 0 November 03, 2023 12:00am June 01, 2024 1:44pm Start: 11-03-2023 End: 06-01-2024 Insulin Glargine-Yfgn 100 un it/mL (3 mL) Insulin Pen Discontinued 40 U SC DAILY 0 November 03, 2023 12:00am June 01, 2024 1:44pm lactulose 667 mg/ml oral solution (17 sources) Osmotic Laxative Start: 08-26-2024 End: 01-05-2025 take 1 mL by mouth once daily Lactulose 20 gram/30 mL solution Discontinued 30 mL PO DAILY September 16, 2024 1:00am January 05, 2025 9:27am CONSTIPATION Start: 04-05-2024 take 1 dose by mouth once daily as needed lactulose 10 g/15 mL oral syrup Dose : 20 gram(s) = 30 mL, Oral, qDay, PRN constipation, 0 Refill(s) Start Date: 04/05/24 Status: Ordered lanolin 0.157 mg/mg / menthol 0.0044 mg/mg / petrolatum 0.24 mg/mg / zinc oxide 0.206 mg/mg topical ointment (5 sources) Start: 04-05-2024 Calmoseptine 0.44%-20.6% topical ointment Apply 1 priscilla, Topical, TID, PRN jorden buttocks, clean affected area before application, 0 Refill(s), Ointment, 133 Start Date: 04/05/24 Status: Ordered Repeat number: 1 levoFLOXacin 750 mg oral tablet (13 sources) Quinolone Antimicrobial Start: 01-07-2024 End: 06-01-2024 take 1 tablet by mouth once daily Levofloxacin 750 mg Tablet Discontinued 750 mg PO DAILY@0600 7 7 0 January 07, 2024 12:00am June 01, 2024 1:48pm lidocaine hydrochloride 0.02 mg/mg topical gel (2 sources) Antiarrhythmic, Amide Local Anesthetic Start: 02-17-2024 End: 02-17-2024 lidocaine urojet 2 % 11 mL topical gel (GLYDO) Start: 02-17-2024 End: 02-17-2024 lidocaine urojet 2 % 11 mL t opical gel (GLYDO) menthol 0.0044 mg/mg / zinc oxide 0.206 mg/mg topical ointment (20 sources) Start: 06-01-2024 End: 09-16-2024 Menthol-Zinc Oxide (Calmosep dee) 0.44-20.6 % ointment in packet Discontinued 1 NMA TOPICAL THREE TIMES A DAY June 01, 2024 1:00am September 16, 2024 10:27pm Start: 06-01-2024 End: 09-16-2024 Start: 04-05-2024 menthol-zinc o xide 0.44%-20.6% topical ointment 1 application, Topical, TID, L leg, 0 Refill(s), 133 Start Date: 04/05/24 Status: Ordered Start: 11-03-2023 End: 06-01-2024 Menthol-Zinc Oxide (Calmosep dee) 0.44-20.6 % Ointment Discontinued 1 NMA TOPICAL TWICE A DAY 0 0 November 03, 2023 12:00am June 01, 2024 1:43pm Please contact the information source for Protocol details. Start: 11-03-2023 End: 06-01-2024 Menthol-Zinc Oxide (Calmosep dee) 0.44-20.6 % Ointment Discontinued 1 NMA TOPICAL TWICE A DAY 0 November 03, 2023 12:00am June 01, 2024 1:43pm Please contact the information source for Protocol details. Start: 11-03-2023 Menthol-Zinc O xide (Calmoseptine) 0.44-20.6 % Ointment Active 1 APPLIC TOPICAL TWICE A DAY 0 November 03, 2023 12:00am 24 hr metFORMIN hydrochloride 500 mg extended release oral tablet (20 sources) Biguanide Start: 11-29-2023 End: 01-03-2024 take 1 tablet by mouth twice daily Metformin 500 mg tablet extended release 24 hr Discontinued 500 mg PO TWICE A DAY November 29, 2023 12:00am January 03, 2024 11:05am Start: 01-17-2021 metFORMIN 1000 mg oral tablet (IR) Dose : 1,000 mg = 1 tab(s), Oral, BID, # 180 tab(s), 3 Refill(s), Pharmacy: [id number], 185.9, cm, 12/05/20 8:53:00 EDT, Height, kg, 12/05/20 8:53:00 EDT, Dosing Weight Start Date: 01/17/21 Status: Ordered Start: 03-17-2019 End: 10-28-2023 take 1 tablet by mouth twice daily Metformin 500 MG tablet Discontinued 500 mg PO TWICE A DAY March 17, 2019 12:00am October 28, 2023 6:24pm metoprolol tartrate 25 mg oral tablet (20 sources) beta-Adrenergic Maren Start: 10-28-2023 End: 12-22-2023 Metoprolol Tartrate 25 mg tablet Discontinued 12.5 mg PO TWICE A DAY October 28, 2023 12:00am December 22, 2023 3:17pm Start: 10-28-2023 take 12.5 mg by mout h twice daily Metoprolol Tartrate Active 12.5 MG PO TWICE A DAY October 28, 2023 12:00am Start: 10-27-2023 End: 10-27-2023 take 0.5 tablet by mouth in the morning Lopressor Start: 10/27/23 8:00:00 AM EDT, Dose = 12.5 mg, = 0.5 tab(s), Oral, Hold if SBP (mmHg) Start Date: 10/27/23 Stop Date: 10/27/23 Status: Completed Start: 10-26-2023 End: 10-26-2023 take 0.5 tablet by mouth in the evening Lopressor Start: 10/26/23 5:00:00 PM EDT, Dose = 12.5 mg, = 0.5 tab(s), Oral, Hold if SBP (mmHg) Start Date: 10/26/23 Stop Date: 10/26/23 Status: Completed Start: 10-26-2023 End: 10-26-2023 take 0.5 tablet by mouth in the morning Lopressor Start: 10/26/23 8:00:00 AM EDT, Dose = 12.5 mg, = 0.5 tab(s), Oral, Hold if SBP (mmHg) Start Date: 10/26/23 Stop Date: 10/26/23 Status: Completed Start: 10-13-2023 End: 10-13-2023 take 1 dose by mouth once in the evening Lopressor Start: 10/13/23 5:00:00 PM EDT, Dose = 12.5 mg, = 1 EA, Oral, Hold if HR (bpm) Start Date: 10/13/23 Stop Date: 10/13/23 Status: Completed Start: 10-13-2023 take 1 dose by mouth twice margarita ly Lopressor Dose : 12.5 mg = 1 EA, Oral, BID, 0 Refill(s) Start Date: 10/13/23 Status: Ordered Start: 10-13-2023 End: 10-13-2023 take 1 dose by mouth once in the morning Lopressor Start: 10/13/23 8:00:00 AM EDT, Dose = 12.5 mg, = 1 EA, Oral, Hold if HR (bpm) Start Date: 10/13/23 Stop Date: 10/13/23 Status: Completed nystatin 100 unt/mg topical powder (20 sources) Polyene Antifungal Start: 11-13-2023 nystatin 10 0,000 units/g topical powder Apply 1 priscilla, Topical, TID, folds, 0 Refill(s), Powder, 157 Start Date: 11/13/23 Status: Ordered Repeat number: 1 Start: 11-13-2023 nystatin 100,0 00 units/g topical powder Apply 1 priscilla, Topical, BID, # 15 gram(s), 0 Refill(s), Powder, 157 Start Date: 11/13/23 Status: Ordered Start: 11-03-2023 End: 09-16-2024 Nystatin (Nyamyc) 100,000 un it/gram Powder Discontinued 1 NMA TOPICAL THREE TIMES A DAY 0 0 November 03, 2023 12:00am September 16, 2024 10:27pm Please contact the information source for Protocol details. Start: 11-03-2023 End: 09-16-2024 Start: 11-03-2023 Nystatin (Nyam yc) 100,000 unit/gram Powder Active 1 APPLIC TOPICAL THREE TIMES A DAY 0 November 03, 2023 12:00am nystatin (MYCOST ATIN) powder Apply to affected area four times daily. Active Olme/Amlo/Hctz (10 sources) Start: 03-17-2019 End: 10-28-2023 Olme/Amlo/Hctz Discontinued 1 {tbl} PO DAILY March 17, 2019 12:00am October 28, 2023 6:24pm Start: 03-17-2019 End: 10-28-2023 take 1 tablet by mouth once daily Olme/Amlo/Hctz Discontinued 1 TABLET PO DAILY March 17, 2019 12:00am October 28, 2023 6:24pm oxyCODONE hydrochloride 5 mg oral tablet (12 sources) Opioid Agonist Start: 01-08-2024 End: 06-01-2024 take 1 tablet by mouth every four hours as needed for pain Oxycodone 5 mg Tablet Discontinued 5 mg PO EVERY 4 HOURS NEEDED as needed for Pain Score 4-10 12 3 0 January 08, 2024 June 01, 2024 1:48pm Acute painful diabetic polyneuropathy Wound of right leg Type 2 diabetes mellitus with diabetic polyneuropathy Unspecified open wound, right lower leg, initial encounter polyethylene glycol 3350 40194 mg powder for oral solution (20 sources) Osmotic Laxative Start: 10-13-2023 End: 08-16-2024 Polyethylene Glycol 3350 (Powderlax) 17 gram powder in packet Discontinued 17 g PO TWICE A DAY June 01, 2024 1:00am August 16, 2024 9:33am 1 mg dose 1.5 ml semaglutide 1.34 mg/ml pen injector (18 sources) Start: 03-17-2019 End: 10-28-2023 inject 1 mg by subcutaneous injection every week Semaglutide Discontinued 1 MG SQ EVERY WEEK March 17, 2019 12:00am October 28, 2023 6:22pm Semaglutide (Ozempic) 2 mg/dose (8 mg/3 mL) pen injector (8 sources) Start: 11-29-2023 End: 12-22-2023 Semaglutide (Ozempic) 2 mg/dose (8 mg/3 mL) pen injector Discontinued 2 mg SC EVERY WEEK November 29, 2023 12:00am December 22, 2023 3:17pm Semaglutide 1 MG/0.75 ML pen injector (8 sources) Start: 03-17-2019 End: 10-28-2023 Semaglutide 1 MG/0.75 ML pen injector Discontinued 1 mg SQ EVERY WEEK March 17, 2019 12:00am October 28, 2023 6:22pm sertraline 50 mg oral tablet (16 sources) Serotonin Reuptake Inhibitor Start: 06-01-2024 End: 08-16-2024 take 2 tablets by mouth once daily Sertraline 50 mg tablet Discontinued 100 mg PO DAILY June 01, 2024 1:00am August 16, 2024 9:36am Start: 04-05-2024 Zoloft 50 mg o ral tablet Dose : 50 mg = 1 tab(s), Oral, qDay, 0 Refill(s) Start Date: 04/05/24 Status: Ordered Repeat number: 1 sodium chloride 0.154 meq/ml nasal solution (11 sources) Start: 09-16-2024 End: 10-10-2024 Sodium Chloride 0.9 % soluti on Discontinued 2 mL INTRANASAL THREE TIMES A DAY September 16, 2024 1:00am October 10, 2024 4:50pm Start: 09-16-2024 End: 10-10-2024 Symbicort 160 mcg-4.5 mcg/inh Inhaler (5 sources) Start: 05-23-2020 End: 11-19-2020 take 1 dose by inhalation twice daily Symbicort 160 mcg-4.5 mcg/inh Inhaler Dose = 2 puff(s), Inhalation, BID, # 1 EA, 5 Refill(s), Pharmacy: [id number], 188, cm, 02/28/20 14:36:00 EDT, Height, kg, 02/28/20 14:36:00 EDT, Dosing Weight Start Date: 05/23/20 Stop Date: 11/19/20 Status: Ordered Tirzepatide (Mounjaro) 5 mg/0.5 mL pen injector (8 sources) Start: 12-22-2023 End: 08-16-2024 Tirzepatide (Mounjaro) 5 mg/0.5 mL pen injector Discontinued 5 mg SC WE December 22, 2023 12:00am August 16, 2024 9:36am Tirzepatide (Tirzepatide 5 Mg/0.5 Ml Subcutaneous Pen Injector) 5 mg/0.5 mL pen injector (10 sources) Start: 10-28-2023 End: 11-03-2023 Tirzepatide (Tirzepatide 5 Mg/0.5 Ml Subcutaneous Pen Injector) 5 mg/0.5 mL pen injector Discontinued 5 mg SC EVERY WEEK October 28, 2023 12:00am November 03, 2023 4:38pm Start: 10-28-2023 End: 11-03-2023 Tirzepatide (Tirzepatide 5 M g/0.5 Ml Subcutaneous Pen Injector) 5 mg/0.5 mL pen injector Discontinued 5 MG SC EVERY WEEK October 28, 2023 12:00am November 03, 2023 4:38pm Start: 10-28-2023 Tirzepatide (T irzepatide 5 Mg/0.5 Ml Subcutaneous Pen Injector) 5 mg/0.5 mL pen injector Active 5 MG SC EVERY WEEK October 28, 2023 12:00am 200 ml vancomycin 5 mg/ml injection (6 sources) Glycopeptide Antibacterial Start: 10-18-2024 End: 01-05-2025 Vancomycin In Dextrose 5 % 1 gram/200 mL Piggyback Discontinued 1000 mg IV Q12H 8400 21 0 October 18, 2024 12:00am January 05, 2025 9:28am stop date 11/10/24. Dx: MRSA bacteremia. Weekly bmp, cbc, and vanc trough. Fax to [phone]. Routine picc care per protocol. vitamin b12 1 mg oral capsule (11 sources) Vitamin B12 Start: 06-01-2024 End: 01-05-2025 Cyanocobalamin (Vitamin B-12) 1,000 mcg capsule Discontinued 500 ug PO DAILY June 01, 2024 1:00am January 05, 2025 9:25am VITAMIN Problems Active Problems Problem Classification Problem Date Documented Da te Episodic/Chronic Abdominal hernia (20 sources) Obstructed femoral hernia; Translations: [Recurrent right inguinal hernia] Onset: 5 11-02-2017 Episodic Abdominal pain (2 sources) Abdominal pain; Translations: [Unspecified abdominal pain] Onset: Episodic Acute and unspecified renal failure (9 sources) Acute renal failure syndrome; Translations: [Acute kidney failure, unspecified] Onset: 5 01-05-2025 Episodic Administrative/social admission (20 sources) Other reduced mobility; Translations: [Impaired mobility and activities of daily living] Onset: 5 10-28-2023 Episodic Cardiac dysrhythmias (20 sources) Atrial flutter; Translations: [Unspecified atrial flutter] Onset: 4 06-09-2022 Chronic Cardiac dysrhythmias (1 source) Sinus bradycardia; Translations: [Bradycardia, unspecified] Onset: 4 Episodic Chronic kidney disease (12 sources) Chronic kidney disease stage 4; Translations: [Chronic kidney disease, stage 4 (severe)] Onset: 4 Chronic Chronic ulcer of skin (20 sources) Ulcer of lower extremity; Translations: [Non-pressure chronic ulcer of unspecified part of left lower leg with fat layer exposed] Onset: 5 03-22-2019 Chronic Complication of device; implant or graft (16 sources) Complication of urinary catheter; Translations: [Unspecified complication of genitourinary prosthetic device, implant and graft, initial encounter] 10-10-2024 Episodic Conduction disorders (20 sources) Intraventricular conduction defect 06-09-2021 Chronic Congestive heart failure; nonhypertensive (20 sources) Heart failure; Translations: [Heart failure, unspecified] Onset: 4 11-16-2019 Chronic Crushing injury or internal injury (16 sources) Injury of kidney 06-06-2021 Episodic Deficiency and other anemia (11 sources) Anemia due to blood loss; Translations: [Iron deficiency anemia secondary to blood loss (chronic)] 01-16-2024 Chronic Deficiency and other anemia (20 sources) Pancytopenia; Translations: [Other pancytopenia] 10-10-2024 Chronic Deficiency and other anemia (2 sources) Iron deficiency anemia secondary to blood loss (chronic); Translations: [Iron deficiency anemia secondary to blood loss (chronic)] Onset: 5 Chronic Deficiency and other anemia (20 sources) Normocytic anemia 06-06-2021 Episodic Deficiency and other anemia (1 source) Anemia; Translations: [Anemia, unspecified] Onset: Episodic Deficiency and other anemia (13 sources) Chronic anemia; Translations: [Anemia, unspecified] 10-28-2023 Episodic Deficiency and other anemia (9 sources) Iron deficiency anemia 11-11-2023 Episodic Diabetes mellitus with complications (20 sources) 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; Translations: [Chronic kidney disease due to type 2 diabetes mellitus] Onset: 4 06-16-2021 Chronic Diabetes mellitus without complication (20 sources) Type 2 diabetes mellitus; Translations: [Type 2 diabetes mellitus without complication] Onset: 4 11-16-2019 Chronic Diverticulosis and diverticulitis (13 sources) Diverticular disease; Translations: [Diverticulosis of intestine, part unspecified, without perforation or abscess without bleeding] Onset: 5 01-16-2024 Chronic E Codes: Fall (11 sources) Fall; Translations: [Unspecified fall, initial encounter] 09-17-2024 Episodic Essential hypertension (20 sources) Hypertensive disorder; Translations: [Benign essential hypertension] Onset: 4 04-05-2016 Chronic Heart valve disorders (20 sources) Aortic valve disorder; Translations: [History of aortic valve replacement] Onset: 5 01-17-2020 Chronic Comment on above: 2016- AVR 06/18/16 27mm Mosaic Heart valve disorders (20 sources) Heart murmur; Translations: [Cardiac murmur, unspecified] 03-09-2022 Episodic Hyperplasia of prostate (20 sources) Large prostate ; Translations: [Benign prostatic hypertrophy with outflow obstruction] Onset: 5 04-05-2016 Chronic Hypertension with complications and secondary hypertension (2 sources) Hypertensive heart failure; Translations: [Hypertensive heart disease with heart failure] Chronic Malaise and fatigue (16 sources) Asthenia; Translations: [Weakness] Onset: 4 Episodic Mood disorders (1 source) Depressive disorder 10-24-2024 Chronic Mood disorders (1 source) Mood disorders; Translations: [Depression, unspecified] Onset: 5 Nonmalignant breast conditions (20 sources) Abscess of breast 02-21-2021 Episodic Open wounds of extremities (13 sources) Open wound of lower leg; Translations: [Unspecified open wound, unspecified lower leg, initial encounter] Onset: 3 Episodic Open wounds of head; neck; and trunk (1 source) Laceration of head; Translations: [Laceration without foreign body of unspecified part of head, initial encounter] Episodic Other aftercare (20 sources) Surgical follow-up 03-19-2021 Episodic Other aftercare (11 sources) Long-term current use of anticoagulant; Translations: [senior care (current) use of anticoagulants] 09-17-2024 Episodic Other circulatory disease (20 sources) Other specified peripheral vascular diseases; Translations: [Peripheral vascular disease] Onset: 5 08-16-2024 Chronic Other circulatory disease (3 sources) Peripheral vascular disease; Translations: [Other specified peripheral vascular diseases] 10-20-2024 Chronic Other circulatory disease (2 sources) Other specified peripheral vascular diseases; Translations: [Other specified peripheral vascular diseases] Onset: Chronic Other circulatory disease (11 sources) H/O: heart failure; Translations: [Personal history of other diseases of the circulatory system] 06-01-2024 Episodic Other circulatory disease (2 sources) Personal history of other diseases of the circulatory system; Translations: [Personal history of other diseases of the circulatory system] Onset: Episodic Other connective tissue disease (11 sources) Swelling of left lower limb; Translations: [Other specified soft tissue disorders] 01-16-2024 Episodic Other connective tissue disease (11 sources) Swelling of right lower limb; Translations: [Other specified soft tissue disorders] 01-16-2024 Episodic Other connective tissue disease (2 sources) Other specified soft tissue disorders; Translations: [Other specified soft tissue disorders] Onset: Episodic Other diseases of kidney and ureters (20 sources) Renal mass; Translations: [Other specified disorders of kidney and ureter] Onset: 5 09-09-2021 Chronic Comment on above: 6.6 cm Other diseases of kidney and ureters (1 source) Disorder of kidney and/or ureter; Translations: [Other specified disorders of kidney and ureter] 11-21-2024 Chronic Other diseases of kidney and ureters (2 sources) Other specified disorders of kidney and ureter; Translations: [Renal mass, left] Onset: 5 Chronic Other diseases of kidney and ureters (11 sources) Acquired renal cystic disease; Translations: [Cyst of kidney, acquired] 09-17-2024 Episodic Other diseases of kidney and ureters (11 sources) Acute renal insufficiency; Translations: [Disorder of kidney and ureter, unspecified] 09-17-2024 Episodic Other diseases of veins and lymphatics (11 sources) Lymphedema of left lower limb; Translations: [Lymphedema, not elsewhere classified] 01-16-2024 Chronic Other diseases of veins and lymphatics (11 sources) Lymphedema of right lower limb; Translations: [Lymphedema, not elsewhere classified] 01-16-2024 Chronic Other diseases of veins and lymphatics (2 sources) Lymphedema, not elsewhere classified; Translations: [Lymphedema, not elsewhere classified] Onset: 5 Chronic Other diseases of veins and lymphatics (20 sources) Peripheral venous insufficiency; Translations: [Venous insufficiency (chronic) (peripheral)] 10-28-2023 Episodic Other diseases of veins and lymphatics (2 sources) Venous insufficiency (chronic) (peripheral); Translations: [Venous insufficiency (chronic) (peripheral)] Onset: 5 Episodic Other endocrine disorders (12 sources) Adrenal mass; Translations: [Disorder of adrenal gland, unspecified] Onset: 5 09-17-2024 Chronic Other endocrine disorders (1 source) Disorder of adrenal gland, unspecified; Translations: [Adrenal nodule (HCC)] Onset: 5 Chronic Other gastrointestinal disorders (2 sources) Personal history of other diseases of the digestive system; Translations: [Personal history of other diseases of the digestive system] Onset: 5 Episodic Other injuries and conditions due to external causes (11 sources) Local infection of wound; Translations: [Other injury of unspecified body region, initial encounter] 01-16-2024 Episodic Other lower respiratory disease (20 sources) Dyspnea; Translations: [Shortness of breath] 03-05-2022 Episodic Other nervous system disorders (6 sources) Acute postoperative pain; Translations: [Other acute postprocedural pain] 06-05-2024 Episodic Other non-traumatic joint disorders (20 sources) Hip pain 02-26-2020 Episodic Other nutritional; endocrine; and metabolic disorders (20 sources) Obesity; Translations: [Obesity, unspecified] Onset: 4 11-02-2017 Chronic Other nutritional; endocrine; and metabolic disorders (12 sources) Body mass index 40+ - severely obese; Translations: [Body mass index (BMI) 45.0-49.9, adult] Chronic Other nutritional; endocrine; and metabolic disorders (13 sources) Morbid obesity; Translations: [Morbid (severe) obesity due to excess calories] 10-28-2023 Chronic Other nutritional; endocrine; and metabolic disorders (2 sources) Morbid (severe) obesity due to excess calories; Translations: [Morbid (severe) obesity due to excess calories] Onset: 5 Chronic Other nutritional; endocrine; and metabolic disorders (2 sources) Body mass index (BMI) 40.0-44.9, adult; Translations: [Body mass index [BMI] 40.0-44.9, adult] Onset: 5 Chronic Other screening for suspected conditions (not mental disorders or infectious disease) (12 sources) Encounter for screening for malignant neoplasm of prostate; Translations: [Screening for malignant neoplasm done] Episodic Other skin disorders (20 sources) Epidermoid cyst 02-26-2021 Episodic Mariza-; endo-; and myocarditis; cardiomyopathy (except that caused by tuberculosis or sexually transmitted disease) (20 sources) Heart valve disorder; Translations: [Endocarditis, valve unspecified] Onset: 5 11-02-2017 Chronic Comment on above: [employer]IG[employer]ILLANCE Peripheral and visceral atherosclerosis (15 sources) Vascular disorder of lower extremity; Translations: [Peripheral vascular disease, unspecified] Onset: 5 03-17-2019 Chronic Peripheral and visceral atherosclerosis (18 sources) Mesenteric infarction 11-02-2017 Episodic Phlebitis; thrombophlebitis and thromboembolism (20 sources) Embolism from thrombosis of vein of distal lower extremity; Translations: [Acute deep vein thrombosis of lower limb] Onset: 4 06-06-2021 Episodic Residual codes; unclassified (20 sources) Sleep apnea; Translations: [Sleep apnea, unspecified] Onset: 4 11-16-2019 Chronic Residual codes; unclassified (20 sources) Obstructive sleep apnea syndrome; Translations: [Obstructive sleep apnea (adult) (pediatric)] Onset: 4 Chronic Residual codes; unclassified (2 sources) Obstructive sleep apnea (adult) (pediatric); Translations: [Obstructive sleep apnea (adult) (pediatric)] Onset: 5 Chronic Residual codes; unclassified (20 sources) Edema of lower extremity 06-06-2021 Episodic Residual codes; unclassified (1 source) Pain; Translations: [Pain, unspecified] Onset: 4 Episodic Residual codes; unclassified (13 sources) Localized edema; Translations: [Localized edema] 03-22-2019 Episodic Residual codes; unclassified (1 source) Illness; Translations: [Illness, unspecified] Onset: 4 Episodic Residual codes; unclassified (1 source) Transient alteration of awareness; Translations: [Transient alteration of awareness] Onset: 4 Episodic Residual codes; unclassified (11 sources) Urinary catheter in situ; Translations: [Presence of other specified devices] 09-17-2024 Episodic Residual codes; unclassified (11 sources) Edema of left lower leg; Translations: [Localized edema] 01-16-2024 Episodic Residual codes; unclassified (11 sources) Edema of right lower leg; Translations: [Localized edema] 01-16-2024 Episodic Residual codes; unclassified (11 sources) History of colectomy; Translations: [Acquired absence of other specified parts of digestive tract] 01-16-2024 Episodic Residual codes; unclassified (8 sources) Altered mental status; Translations: [Altered mental status, unspecified] 01-05-2025 Episodic Residual codes; unclassified (2 sources) Localized edema; Translations: [Localized edema] Onset: 5 Episodic Residual codes; unclassified (2 sources) Other specified postprocedural states; Translations: [Other specified postprocedural states] Onset: 5 Episodic Residual codes; unclassified (2 sources) Other specified health status; Translations: [Other specified health status] Onset: 5 Episodic Residual codes; unclassified (2 sources) Acquired absence of other specified parts of digestive tract; Translations: [Acquired absence of other specified parts of digestive tract] Onset: 5 Episodic Residual codes; unclassified (2 sources) Altered mental status, unspecified; Translations: [Altered mental status, unspecified] Onset: 5 Episodic Superficial injury; contusion (18 sources) Contusion of lower leg; Translations: [Contusion of unspecified lower leg, initial encounter] Onset: 4 Episodic Unclassified (20 sources) Recurrent right inguinal hernia 07-23-2021 Unclassified (14 sources) Vaccination needed 04-23-2023 Unclassified (8 sources) Drug therapy finding 12-31-2023 Unclassified (1 source) Please follow[facility]up [facility] on [facility]24. Please show up at your already scheduled appointment time. Urinary tract infections (20 sources) Acute urinary tract infection; Translations: [Urinary tract infection, site not specified] Onset: 09-17-2024 Episodic Past or Other Problems Problem Classification Problem Date Documented Da te Episodic/Chronic Bacterial infection; unspecified site (20 sources) Blood culture positive for microorganism; Translations: [Bacteremia] Onset: 10-18-2024 10-13-2024 Episodic Genitourinary symptoms and ill-defined conditions (9 sources) Difficulty passing urine; Translations: [Other difficulties with micturition] Onset: 01-12-2024 01-11-2024 Episodic Other diseases of kidney and ureters (1 source) Other obstructive and reflux uropathy; Translations: [BPH with obstruction/lower urinary tract symptoms] Onset: 09-22-2024 Episodic Septicemia (except in labor) (20 sources) Sepsis; Translations: [Sepsis, unspecified organism] Onset: 10-18-2024 10-10-2024 Episodic Skin and subcutaneous tissue infections (16 sources) Cellulitis of lower limb; Translations: [Cellulitis of right lower limb] Onset: 11-13-2023 Episodic Results Test Name Value Interpretation Reference Range Facility .Auto Diffon 01-10-2025 Basophil, Absolute 0.0 10 3/mcL Normal 0.0-0.3 [facility] Comment on above: Performed By: #### C MP, CBC, GFR, ADIFF, ANEU, CK, TROPHS, DRUGS, MDW #### [address] [address] Basophils/100 WBC (Bld) 0.9 % Normal 0.0-2.5 [facility] Comment on above: Performed By: #### C MP, CBC, GFR, ADIFF, ANEU, CK, TROPHS, DRUGS, MDW #### [address] [address] Eosinophil, Absolute 0.2 10 3/mcL Normal 0.0-0.7 [facility] Comment on above: Performed By: #### C MP, CBC, GFR, ADIFF, ANEU, CK, TROPHS, DRUGS, MDW #### [address] [address] Eosinophils/100 WBC (Bld) 5.5 % Normal 0.0-6.0 [facility] Comment on above: Performed By: #### C MP, CBC, GFR, ADIFF, ANEU, CK, TROPHS, DRUGS, CECILIO #### [address] [address] Lymphocyte, Absolute 1.1 10 3/mcL Normal 0.9-4.3 [facility] Comment on above: Performed By: #### C MP, CBC, GFR, ADIFF, ANEU, CK, TROPHS, DRUGS, CECILIO #### [address] [address] Lymphocytes/100 WBC (Bld) 26.3 % Normal 20.0-40.0 [facility] Comment on above: Performed By: #### C MP, CBC, GFR, ADIFF, ANEU, CK, TROPHS, DRUGSCECILIO #### [address] [address] Monocyte, Absolute 0.7 10 3/mcL Normal 0.1-1.4 [facility] Comment on above: Performed By: #### C MP, CBC, GFR, ADIFF, ANEU, CK, TROPHS, DRUGSCECILIO #### [address] [address] Monocytes/100 WBC (Bld) 16.8 % High 2.0-13.0 [facility] Comment on above: Performed By: #### C MP, CBC, GFR, ADIFF, ANEU, CK, TROPHS, DRUGS, CECILIO #### [address] [address] Neutrophils/100 WBC (Bld) 50.5 % Normal 50.0-75.0 [facility] Comment on above: Performed By: #### C MP, CBC, GFR, ADIFF, ANEU, CK, TROPHS, DRUGS, CECILIO #### [address] [address] .GFRon 01-10-2025 Estimated Glomerular Filtration Rate 72 ml/min/1.73sqm Normal [facility] Comment on above: Result Comment: Stages of Chronic Kidney Disease (CKD) Stage Description eGFR(ml/min/1.73 sq.m.) CKD 1 Normal kidney function or >=90 normal kindney function with possible kidney damage (ex. Proteinuria) CKD 2 Kidney damage with mild loss 60-89 of kidney function CKD 3a Mild to moderate loss of kidney 45-59 function CKD 3b Moderate to severe loss of 30-44 of kindey function CKD 4 Severe loss of kidney function 15-29 CKD 5 Kidney failure <15 Note: (go live 2024) the eGFR calculation was updated to the 2020 CKD-EPI creatinine equation without a race factor to calculate the eGFR results. Performed By: #### C MP, CBC, GFR, ADIFF, ANEU, CK, TROPHS, DRUGS, MDW ####[place] [address] .MDWon 01-10-2025 Monocyte Distribution Width 15.70 Normal 0.00-20.00 [facility] Comment on above: Result Comment: For ED adult patients suspected of sepsis, MDW<=20.0 does not rule out sepsis or risk of sepsis Performed By: #### C MP, CBC, GFR, ADIFF, ANEU, CK, TROPHS, DRUGS, MDW #### [place] [address] .NEUABSon 01-10-2025 Neutrophil, Absolute 2.2 10 3/mcL Low 2.3-8.1 [facility] Comment on above: Performed By: #### C MP, CBC, GFR, ADIFF, ANEU, CK, TROPHS, DRUGS, MDW #### [place] [address] CBCon 01-10-2025 Erythrocyte distribution width (RBC) [Ratio] 16.5 % High 11.5-15.5 [facility] Comment on above: Performed By: #### C MP, CBC, GFR, ADIFF, ANEU, CK, TROPHS, DRUGS, MDW #### [place] [address] Hematocrit (Bld) [Volume fraction] 35.5 % Low 40.0-52.0 [facility] Comment on above: Performed By: #### C MP, CBC, GFR, ADIFF, ANEU, CK, TROPHS, DRUGS, MDW #### [place] [address] Hgb 11.5 G/dL Low 13.0-17.5 [facility] Comment on above: Performed By: #### C MP, CBC, GFR, ADIFF, ANEU, CK, TROPHS, DRUGS, MDW #### [place] [address] MCH (RBC) [Entitic mass] 26.2 pg Low 27.0-33.0 [facility] Comment on above: Performed By: #### C MP, CBC, GFR, ADIFF, ANEU, CK, TROPHS, DRUGS, MDW #### [place] [address] MCHC 32.4 G/dL Normal 32.0-36.0 [facility] Comment on above: Performed By: #### C MP, CBC, GFR, ADIFF, ANEU, CK, TROPHS, DRUGS, MDW #### [place] [address] MCV (RBC) [Entitic vol] 80.9 fL Low 81.0-100.0 [facility] Comment on above: Performed By: #### C MP, CBC, GFR, ADIFF, ANEU, CK, TROPHS, DRUGS, MDW #### [place] [address] Platelet 204 10 3/mcL Normal 150-450 [facility] Comment on above: Performed By: #### C MP, CBC, GFR, ADIFF, ANEU, CK, TROPHS, DRUGS, MDW #### [place] [address] Platelet mean volume (Bld) [Entitic vol] 9.1 fL Normal 6.4-10.5 [facility] Comment on above: Performed By: #### C MP, CBC, GFR, ADIFF, ANEU, CK, TROPHS, DRUGS, MDW #### [place] [address] RBC 4.39 10 6/mcL Low 4.50-6.00 [facility] Comment on above: Performed By: #### C MP, CBC, GFR, ADIFF, ANEU, CK, TROPHS, DRUGSCECILIO #### [place] [address] WBC 4.3 10 3/mcL Low 4.5-10.8 [facility] Comment on above: Performed By: #### C MP, CBC, GFR, ADIFF, ANEU, CK, TROPHS, DRUGSCECILIO #### [place] [address] CKon 01-10-2025 CK [Catalytic activity/Vol] 25 U/L Normal 7-185 [facility] Comment on above: Performed By: #### C MP, CBC, GFR, ADIFF, ANEU, CK, TROPHS, DRUGSCECILIO ####[place] [address] CMPon 01-10-2025 Albumin Level 3.2 G/dL Normal 3.2-4.8 [facility] Comment on above: Performed By: #### C MP, CBC, GFR, ADIFF, ANEU, CK, TROPHS, DRUGSCECILIO ####[place] [address] Albumin/Globulin [Mass ratio] 0.9 {ratio} Normal 0.9-1.6 [facility] Comment on above: Performed By: #### C MP, CBC, GFR, ADIFF, ANEU, CK, TROPHS, DRUGSCECILIO ####[place] [address] ALP [Catalytic activity/Vol] 69 U/L Normal 38-126 [facility] Comment on above: Performed By: #### C MP, CBC, GFR, ADIFF, ANEU, CK, TROPHS, DRUGSCECILIO ####[place] [address] ALT/SGPT <7 Low 12-55 [facility] Comment on above: Performed By: #### C MP, CBC, GFR, ADIFF, ANEU, CK, TROPHS, DRUGSCECILIO ####[id number] [place], [place] [address] AST [Catalytic activity/Vol] 11 U/L Normal 8-34 [facility] Comment on above: Performed By: #### C MP, CBC, GFR, ADIFF, ANEU, CK, TROPHS, DRUGSCECILIO ####[address] [address] Bili Total 0.20 mg/dL Normal 0.20-1.20 [facility] Comment on above: Result Comment: Use of this assay is not recommended for patients undergoing treatment with eltrombopag due to the potential for falsely elevated results. Performed By: #### C MP, CBC, GFR, ADIFF, ANEU, CK, TROPHS, DRUGSCECILIO ####[place] [address] BUN/Creatinine Ratio 16.2 ratio Normal 10.0-22.0 [facility] Comment on above: Performed By: #### C MP, CBC, GFR, ADIFF, ANEU, CK, TROPHS, DRUGSCECILIO ####[place] [id number] Calcium [Mass/Vol] 9.0 mg/dL Normal 8.7-10.4 [facility] Comment on above: Performed By: #### C MP, CBC, GFR, ADIFF, ANEU, CK, TROPHS, DRUGSCECILIO ####[address] [address] Chloride [Moles/Vol] 106 mmol/L Normal 98-110 [facility] Comment on above: Performed By: #### C MP, CBC, GFR, ADIFF, ANEU, CK, TROPHS, DRUGSCECILIO ####[address] [address] CO2 [Moles/Vol] 26 mmol/L Normal 22-32 [facility] Comment on above: Performed By: #### C MP, CBC, GFR, ADIFF, ANEU, CK, TROPHS, DRUGSCECILIO ####[address] [address] Creatinine [Mass/Vol] 1.11 mg/dL Normal 0.60-1.40 [facility] Comment on above: Result Comment: Test ing performed on Layer analyzer using enzymatic creatinine methodology. Performed By: #### C MP, CBC, GFR, ADIFF, ANEU, CK, TROPHS, DRUGSCECILIO ####[address] [address] Electrolyte Balance 8.0 mEq/L Normal 4.0-15.0 [facility] Comment on above: Performed By: #### C MP, CBC, GFR, ADIFF, ANEU, CK, TROPHS, DRUGSCECILIO ####[place] [id number] Globulin 3.4 G/dL Normal 2.5-4.2 [facility] Comment on above: Performed By: #### C MP, CBC, GFR, ADIFF, ANEU, CK, TROPHS, DRUGSCECILIO ####[place] [id number] Glucose [Mass/Vol] 154 mg/dL High 82-115 [facility] Comment on above: Performed By: #### C MP, CBC, GFR, ADIFF, ANEU, CK, TROPHS, DRUGSCECILIO ####[address] [address] Potassium [Moles/Vol] 4.2 mmol/L Normal 3.5-5.0 [facility] Comment on above: Performed By: #### C MP, CBC, GFR, ADIFF, ANEU, CK, TROPHS, DRUGSCECILIO ####[address] [address] Sodium [Moles/Vol] 140 mmol/L Normal 136-145 [facility] Comment on above: Performed By: #### C MP, CBC, GFR, ADIFF, ANEU, CK, TROPHS, DRUGSCECILIO ####[place] [id number] Total Protein 6.6 G/dL Normal 5.7-8.2 [facility] Comment on above: Performed By: #### C MP, CBC, GFR, ADIFF, ANEU, CK, TROPHS, DRUGSCECILIO ####[address] [address] Urea nitrogen [Mass/Vol] 18.0 mg/dL Normal 8.0-22.0 [facility] Comment on above: Performed By: #### C MP, CBC, GFR, ADIFF, ANEU, CK, TROPHS, DRUGS, MDW ####[place] [id number] [place] [address] CVFLURVon 01-10-2025 FLU A PCR Negative Normal Negative [facility] Comment on above: Result Comment: [place] [id number] Performed By: #### C VFLURV #### [place] [address] FLU B PCR Negative Normal Negative [facility] Comment on above: Result Comment: [place] [id number] Performed By: #### C VFLURV #### [place] [address] RSV PCR Negative Normal Negative [facility] Comment on above: Result Comment: [place] [id number] Performed By: #### C VFLURV #### [place] [address] SARS-CoV-2 (COVID-19) RNA SUMAN+probe Ql (Unsp spec) Negative Normal Negative [facility] Comment on above: Result Comment: [place] [id number] Results from the Xpert Xpress SARS-CoV-2/Flu/RSV or Xpert Xpress SARS-CoV-2 only test should be correlated with the clinical history, epidemiological data, and other data available to the clinician evaluating the patient. Performance of the Xpert Xpress SARS-CoV-2/Flu/RSV or Xpert Xpress SARS-CoV-2 only test has only been established in nasopharyngeal swab specimens. Erroneous test results might occur from improper specimen collection; failure to follow the recommended sample collection, handling, and storage procedures; technical error; or sample mix-up.False negative results may occur if virus is present at levels below the analytical limit of detection. Viral nucleic acid may persist in vivo, independent of virus viability. Detection of analyte target(s) does not imply that the corresponding virus(es) are infectious or are the causative agents for clinical symptoms.Recent patient exposure to FluMist or other live attenuated influenza vaccines may cause inaccurate positive results. FDA Approved. Performed By: #### C VFLURV #### [place] [address] DRUGSon 01-10-2025 Acetaminophen [Mass/Vol] 8.4 ug/mL Low 10.0-20.0 [facility] Comment on above: Performed By: #### C MP, CBC, GFR, ADIFF, ANEU, CK, TROPHS, DRUGS, MDW ####[place] [address] Ethanol Level <10.0 [facility] Comment on above: Performed By: #### C MP, CBC, GFR, ADIFF, ANEU, CK, TROPHS, DRUGS, W ####[place] [address] Salicylate Lvl (ds) <3.0 Low 10.0-25.0 [facility] Comment on above: Performed By: #### C MP, CBC, GFR, ADIFF, ANEU, CK, TROPHS, DRUGS, CECILIO ####[place] [address] Serum Drugs screened: See Below [facility] Comment on above: Result Comment: This drug screen is a presumptive screening only. No confirmation will be performed unless requested. Drugs included in the serum drug screen are: Threshold Ethanol 10.0 mg/dL Salicylate 2.0 mg/dl Acetaminophen 2.0 mcg/mL Testing has been performed FOR MEDICAL PURPOSES ONLY. Performed By: #### C MP, CBC, GFR, ADIFF, ANEU, CK, TROPHS, DRUGS, CECILIO ####[place] [address] DRUGUon 01-10-2025 Amphetamine (u) Negative Normal Negative [facility] Comment on above: Performed By: #### U A DRUGU, UAMIC #### [place] [address] Barbiturate (u) Negative Normal Negative [facility] Comment on above: Performed By: #### U A DRUGU, UAMIC #### [place] [address] Benzodiazepine (u) Negative Normal Negative [facility] Comment on above: Performed By: #### U A, DRUGU, UAMIC #### [address] [address] Cannabinoid (u) Negative Normal Negative [facility] Comment on above: Performed By: #### U A DRUGU UAMIC #### [place] [id number] Cocaine Ql (U) Negative Normal Negative [facility] Comment on above: Performed By: #### U [place] DRUGU UAMIC #### [place] [address] Fentanyl (u) Negative Normal Negative [facility] Comment on above: Result Comment: Test ing has been performed FOR MEDICAL PURPOSES ONLY. Performed By: #### AARON Yoon UAMIC #### [place] [address] Methadone Ql (U) Negative Normal Negative [facility] Comment on above: Performed By: #### U AARON Aquino UAMIC #### [place] [address] Opiate (u) Negative Normal Negative [facility] Comment on above: Performed By: #### U AARON Aquino UAMIC #### [place] [address] Oxycodone (u) Negative Normal Negative [facility] Comment on above: Result Comment: Test ing has been performed FOR MEDICAL PURPOSES ONLY. Performed By: #### U AARON Aquino UAMIC #### [place] [id number] PCP (u) Negative Normal Negative [facility] Comment on above: Performed By: #### U AAIDAU UAMIC #### [place] [phone] Propoxyphene (u) Negative Normal Negative [facility] Comment on above: Performed By: #### U AAIDAU UAMIC #### [place] [address] U pH Drug Scrn 5.5 Normal 5.0-8.0 [facility] Comment on above: Performed By: #### U A, DRUGU, UAMIC #### [address] [address] Urine Drugs screened: See Below Normal [facility] Comment on above: Result Comment: This drug screen is a presumptive screening only. No confirmation will be performed unless requested. Drugs screened include: Threshold Amphetamines/Methamphetamines 1,000 ng/mL Barbiturates 200 ng/mL Benzodiazepine metabolites 200 ng/mL Cannabinoids (THC metabolites) 50 ng/mL Benzoylecognine (Cocaine metab) 300 ng/mL Opiates 300 ng/mL Phencyclidine (PCP) 25 ng/mL Methadone 300 ng/mL Propoxyphene 300 ng/mL Fentanyl 1.0 ng/mL Oxycodone 100 ng/mL Testing has been performed FOR MEDICAL PURPOSES ONLY. Performed By: #### U AARON Aquino UAMIC #### [address] [address] LABORATORYOrdered By: Altaf choe on 01-10-2025 Acetaminophen [Mass/Vol] 8.4 ug/mL Low 10.0 - 20.0 mcg/mL AH ADM SS Amphetamines Screen Ql (U) Negative *NA* (01/10/25 10:47 PM) Invalid Interpretation Code Negative AH ADM SS Barbiturates Screen Ql (U) Negative *NA* (01/10/25 10:47 PM) Invalid Interpretation Code Negative AH ADM SS Benzodiazepines Ql (U) Negative *NA* (01/10/25 10:47 PM) Invalid Interpretation Code Negative AH ADM SS Benzoylecgonine Screen Ql (U) Negative *NA* (01/10/25 10:47 PM) Invalid Interpretation Code Negative AH ADM SS Cannabinoids Screen Ql (U) Negative *NA* (01/10/25 10:47 PM) Invalid Interpretation Code Negative AH ADM SS Ethanol [Mass/Vol] mg/dL Invalid Interpretation Code AH ADM SS fentaNYL Screen Ql (U) Negative 2 *NA* (01/10/25 10:47 PM) Invalid Interpretation Code Negative AH ADM SS Comment on above: Interpretive Data: T esting has been performed FOR MEDICAL PURPOSES ONLY. Methadone Screen Ql (U) Negative *NA* (01/10/25 10:47 PM) Invalid Interpretation Code Negative AH ADM SS Opiates Screen Ql (U) Negative *NA* (01/10/25 10:47 PM) Invalid Interpretation Code Negative AH ADM SS oxyCODONE Ql (U) Negative 3 *NA* (01/10/25 10:47 PM) Invalid Interpretation Code Negative AH ADM SS Comment on above: Interpretive Data: T esting has been performed FOR MEDICAL PURPOSES ONLY. pH (U) 5.5 [pH] Normal 5.0 - 8.0 AH Chemistry S Phencyclidine Ql (U) Negative *NA* (01/10/25 10:47 PM) Invalid Interpretation Code Negative AH ADM SS Propoxyphene Screen Ql (U) Negative *NA* (01/10/25 10:47 PM) Invalid Interpretation Code Negative AH ADM SS Salicylates [Mass/Vol] mg/dL Low 10.0 - 25.0 mg/dL AH ADM SS Serum Drugs screened: See Below 7 (01/10/25 10:47 PM) Normal AH Chemistry S Comment on above: Interpretive Data: T his drug screen is a presumptive screening only. No confirmation will be performed unless requested. Drugs included in the serum drug screen are: Threshold Ethanol 10.0 mg/dL Salicylate 2.0 mg/dl Acetaminophen 2.0 mcg/mL Testing has been performed FOR MEDICAL PURPOSES ONLY. Urine Drugs screened: See Below 8 (01/10/25 10:47 PM) Normal AH Chemistry S Comment on above: Interpretive Data: T his drug screen is a presumptive screening only. No confirmation will be performed unless requested. Drugs screened include: Threshold Amphetamines/Methamphetamines 1,000 ng/mL Barbiturates 200 ng/mL Benzodiazepine metabolites 200 ng/mL Cannabinoids (THC metabolites) 50 ng/mL Benzoylecognine (Cocaine metab) 300 ng/mL Opiates 300 ng/mL Phencyclidine (PCP) 25 ng/mL Methadone 300 ng/mL Propoxyphene 300 ng/mL Fentanyl 1.0 ng/mL Oxycodone 100 ng/mL Testing has been performed FOR MEDICAL PURPOSES ONLY. LABORATORYOrdered By: SYSTEM SYSTEM on 01-10-2025 Albumin BCP dye [Mass/Vol] 3.2 G/dL Normal 3.2 - 4.8 G/dL AH ADM SS Albumin/Globulin [Mass ratio] 0.9 {ratio} Normal 0.9 - 1.6 ratio AH ADM SS ALP [Catalytic activity/Vol] 69 U/L Normal 38 - 126 U/L AH ADM SS ALT No additional P-5'-P [Catalytic activity/Vol] U/L 1 Low 12 - 55 U/L ADM SS AST [Catalytic activity/Vol] 11 U/L Normal 8 - 34 U/L ADM SS Basophils (Bld) [#/Vol] 0.0 103/mcL Normal 0.0 - 0.3 10^3/mcL Workflow SS Basophils/100 WBC (Bld) 0.9 % Normal 0.0 - 2.5 % Workflow SS Bilirubin [Mass/Vol] 0.20 mg/dL Normal 0.20 - 1.20 mg/dL ADM SS Comment on above: Interpretive Data: U se of this assay is not recommended for patients undergoing treatment with eltrombopag due to the potential for falsely elevated results. Calcium [Mass/Vol] 9.0 mg/dL Normal 8.7 - 10. 4 mg/dL ADM SS Chloride [Moles/Vol] 106 mmol/L Normal 98 - 11 0 mEq/L ADM SS CK [Catalytic activity/Vol] 25 U/L Normal 7 - 185 U/L ADM SS CO2 [Moles/Vol] 26 mmol/L Normal 22 - 32 mEq/L ADM SS Creatinine [Mass/Vol] 1.11 mg/dL Normal 0.60 - 1.40 mg/dL ADM SS Comment on above: Interpretive Data: T esting performed on Layer analyzer using enzymatic creatinine methodology. Electrolyte Balance 8.0 mEq/L Normal 4.0 - 15 .0 mEq/L ADM SS Eosinophils (Bld) [#/Vol] 0.2 103/mcL Normal 0.0 - 0.7 10^3/mcL Workflow SS Eosinophils/100 WBC (Bld) 5.5 % Normal 0.0 - 6.0 % Workflow SS Erythrocyte distribution width (RBC) [Ratio] 16.5 % High 11.5 - 15.5 % Workflow SS Estimated Glomerular Filtration Rate 72 ml/min/1.73sqm Invalid Interpretation Code ADM SS Comment on above: Interpretive Data: Stages of Chronic Kidney Disease (CKD) Stage Description eGFR(ml/min/1.73 sq.m.) CKD 1 Normal kidney function or >=90 normal kindney function with possible kidney damage (ex. Proteinuria) CKD 2 Kidney damage with mild loss 60-89 of kidney function CKD 3a Mild to moderate loss of kidney 45-59 function CKD 3b Moderate to severe loss of 30-44 of kindey function CKD 4 Severe loss of kidney function 15-29 CKD 5 Kidney failure <15 Note: (go live 2024) the eGFR calculation was updated to the 2020 CKD-EPI creatinine equation without a race factor to calculate the eGFR results. Globulin 3.4 G/dL Normal 2.5 - 4.2 G/dL AH ADM SS Glucose [Mass/Vol] 154 mg/dL High 82 - 115 mg/dL AH ADM SS Hematocrit (Bld) [Volume fraction] 35.5 % Low 40.0 - 52.0 % AH Workflow SS Hemoglobin (Bld) [Mass/Vol] 11.5 G/dL Low 13.0 - 17.5 G/dL AH Workflow SS Lymphocytes (Bld) [#/Vol] 1.1 103/mcL Normal 0.9 - 4.3 10^3/mcL AH Workflow SS Lymphocytes/100 WBC (Bld) 26.3 % Normal 20.0 - 40.0 % AH Workflow SS MCH (RBC) [Entitic mass] 26.2 pg Low 27.0 - 33.0 pg AH Workflow SS MCHC 32.4 G/dL Normal 32.0 - 36.0 G/dL AH Workflow SS MCV (RBC) [Entitic vol] 80.9 fL Low 81.0 - 100.0 fL AH Workflow SS Monocyte distribution width Auto (Bld) [Entitic vol] 15.70 1 Normal 0.00 - 20.00 AH Workflow SS Comment on above: Result Comment: For ED adult patients suspected of sepsis, MDW<=20.0 does not rule out sepsis or risk of sepsis Monocytes (Bld) [#/Vol] 0.7 103/mcL Normal 0.1 - 1.4 10^3/mcL AH Workflow SS Monocytes/100 WBC (Bld) 16.8 % High 2.0 - 13.0 % AH Workflow SS Neutrophils (Bld) [#/Vol] 2.2 103/mcL Low 2.3 - 8.1 10^3/mcL AH Workflow SS Neutrophils/100 WBC (Bld) 50.5 % Normal 50.0 - 75.0 % AH Workflow SS Platelet mean volume (Bld) [Entitic vol] 9.1 fL Normal 6.4 - 10.5 fL AH Workflow SS Platelets (Bld) [#/Vol] 204 103/mcL Normal 150 - 450 10^3/mcL AH Workflow SS Potassium [Moles/Vol] 4.2 mmol/L Normal 3.5 - 5.0 mEq/L AH ADM SS Protein [Mass/Vol] 6.6 G/dL Normal 5.7 - 8.2 G/dL AH ADM SS RBC (Bld) [#/Vol] 4.39 106/mcL Low 4.50 - 6.0 0 10^6/mcL AH Workflow SS Sodium [Moles/Vol] 140 mmol/L Normal 136 - 145 mEq/L AH ADM SS Troponin I.cardiac DL <= 0.01 ng/mL [Mass/Vol] 17 ng/L Normal 0 - 54 ng/L AH ADM SS Comment on above: Interpretive Data: High Sensitive Troponin I Reference Ranges: Female: 0-34 ng/L Male: 0-54 ng/L Testing performed on [employer] analyzer using direct chemiluminescent technology. Urea nitrogen [Mass/Vol] 18.0 mg/dL Normal 8.0 - 22.0 mg/dL AH ADM SS Urea nitrogen/Creatinine [Mass ratio] 16.2 ratio Normal 10.0 - 22.0 ratio AH ADM SS WBC (Bld) [#/Vol] 4.3 103/mcL Low 4.5 - 10.8 10^3/mcL AH Workflow SS LABORATORYOrdered By: Willow Scott on 01-10-2025 Appearance (U) Turbid *ABN* (01/10/25 10:47 PM) Invalid Interpretation Code Clear AH Auto Urine SS Bacteria LM.HPF (Urine sed) [#/Area] 1 /[HPF] Invalid Interpretation Code Negative AH Auto Urine SS Bilirubin Ql (U) Negative (01/10/25 10:47 PM) Normal Neg-Trace AH Auto Urine SS Color (U) [place] *ABN* (01/10/25 10:47 PM) Invalid Interpretation Code AH Auto Urine SS Glucose Test strip (U) [Mass/Vol] Negative Normal Negative AH Auto Urine SS Hemoglobin Auto test strip (U) [Mass/Vol] Large *ABN* (01/10/25 10:47 PM) Invalid Interpretation Code Neg-Trace AH Auto Urine SS Ketones Ql (U) Negative Normal Neg-Trace AH Auto Urine SS UA Leuk Est Large *ABN* (01/10/25 10:47 PM) Invalid Interpretation Code Negative AH Auto Urine SS UA Mucous 1+ /HPF Normal AH Auto Urine SS UA Nitrite Negative (01/10/25 10:47 PM) Normal Negative AH Auto Urine SS UA pH 5.5 (01/10/25 10:47 PM) Normal 5.0 - 8.0 AH Auto Urine SS UA Protein 100 mg/dL Invalid Interpretation Code Negative AH Auto Urine SS UA RBC LOADED /HPF Invalid Interpretation Code 0-2 AH Auto Urine SS UA Spec Grav 1.020 (01/10/25 10:47 PM) Normal 1.006-1.029 AH Auto Urine SS UA Specimen Type Clean Catch (01/10/25 10:47 PM) Normal AH Auto Urine SS UA Squam Epithelial Negative Normal 0-20 AH Au to Urine SS UA Urobilinogen 0.2 E.U./dL Normal 0.2-1.0 AH Auto Urine SS WBC LM.HPF (Urine sed) [#/Area] 50-100 /HPF Invalid Interpretation Code 0-5 AH Auto Urine SS LABORATORYOrdered By: Iris Traylor on 01-10-2025 FLUAV RNA SUMAN+probe Ql (Resp) Negative 12 (01/10/25 10:47 PM) Normal Negative AH Auto Viro/Sero SS Comment on above: Result Comment: [place] [id number] FLUBV RNA SUMAN+probe Ql (Resp) Negative 13 (01/10/25 10:47 PM) Normal Negative AH Auto Viro/Sero SS Comment on above: Result Comment: [place] [id number] RSV PCR Negative 14 (01/10/25 10:47 PM) Normal Negative AH Auto Viro/Sero SS Comment on above: Result Comment: Note s [id number] SARS-CoV-2 (COVID-19) RNA SUMAN+probe Ql (Resp) Negative 10, 11 (01/10/25 10:47 PM) Normal Negative AH Auto Viro/Sero SS Comment on above: Result Comment: Note s [id number] Interpretive Data: R esults from the Xpert Xpress SARS-CoV-2/Flu/RSV or Xpert Xpress SARS-CoV-2 only test should be correlated with the clinical history, epidemiological data, and other data available to the clinician evaluating the patient. Performance of the Xpert Xpress SARS-CoV-2/Flu/RSV or Xpert Xpress SARS-CoV-2 only test has only been established in nasopharyngeal swab specimens. Erroneous test results might occur from improper specimen collection; failure to follow the recommended sample collection, handling, and storage procedures; technical error; or sample mix-up.False negative results may occur if virus is present at levels below the analytical limit of detection. Viral nucleic acid may persist in vivo, independent of virus viability. Detection of analyte target(s) does not imply that the corresponding virus(es) are infectious or are the causative agents for clinical symptoms.Recent patient exposure to FluMist or other live attenuated influenza vaccines may cause inaccurate positive results. FDA Approved. No Panel Informationon 01-10 Culture Urine Specimen received in lab. [facility] Work Phone: [facility] 01-10-2025 High Sensitivity Troponin I 17 ng/L Normal 0-54 [facility] Comment on above: Result Comment: High Sensitive Troponin I Reference Ranges: Female: 0-34 ng/L Male: 0-54 ng/L Testing performed on [employer] IM analyzer using direct chemiluminescent technology. Performed By: #### C MP, CBC, GFR, ADIFF, ANEU, CK, TROPHS, DRUGS, MDW #### [place] [address] UAon 01-10-2025 Color (U) [place] Abnormal [facility] Comment on above: Performed By: #### U AARON Aquino UAMIC #### [place] [address] Glucose (U) [Mass/Vol] Negative Normal Negative [facility] Comment on above: Performed By: #### U AAIDAU, UAMIC #### [place] [address] Ketones Ql (U) Negative Normal Neg-Trace [facility] Comment on above: Performed By: #### U A DRUGU, UAMIC #### [place] [address] UA Appear Turbid Abnormal Clear [facility] Comment on above: Performed By: #### U A DRUGU, UAMIC #### [place] [address] UA Blood Large Abnormal Neg-Trace [facility] Comment on above: Performed By: #### U A DRUGU, UAMIC #### [address] [address] UA Leuk Est Large Abnormal Negative [facility] Comment on above: Performed By: #### U AARON Aquino, UAMIC #### [address] [address] UA Nitrite Negative Normal Negative [facility] Comment on above: Performed By: #### U AARON Aquino, UAMIC #### [place] [address] UA pH 5.5 Normal 5.0 - 8.0 [facility] Comment on above: Performed By: #### AARON Yoon, UAMIC #### [place] [address] UA Protein 100 mg/dL Abnormal Negative [facility] Comment on above: Performed By: #### AARON Yoon, UAMIC #### [place] [address] UA Spec Grav 1.020 Normal 1.006-1.029 [facility] Comment on above: Performed By: #### U AARON Aquino, UAMIC #### [place] [address] UA Specimen Type Clean Catch Normal [facility] Comment on above: Performed By: #### U AARON Aquino, UAMIC #### [place] [address] UA Urobilinogen 0.2 E.U./dL Normal 0.2-1.0 [facility] Comment on above: Performed By: #### U AIDA AquinoU, UAMIC #### [place] [address] Urobilinogen (U) [Mass/Vol] Negative Normal Neg-Trace [facility] Comment on above: Performed By: #### U A DRUGU, UAMIC #### [place] [address] UAMICon 01-10-2025 UA Bacteria 1+ /hpf Abnormal Negative [facility] Comment on above: Performed By: #### U AAIDAU, UAMIC #### [facility] [address] [place] [address] UA Mucous 1+ /hpf Normal [facility] Comment on above: Performed By: #### U A, DRUGU, UAMIC #### [facility] [address] [place] [address] UA RBC LOADED Abnormal 0-2 [facility] Comment on above: Performed By: #### U A, DRUGU, UAMIC #### [facility] [address] [place] [address] UA Squam Epithelial Negative Normal 0-20 [facility] Comment on above: Performed By: #### U A, DRUGU, UAMIC #### [facility] [address] [place] [address] UA WBC 50-100 Abnormal 0-5 [facility] Comment on above: Performed By: #### U AAIDAU, UAMIC #### [facility] [address] [place] [address] Urine Cultureon 01-08-2025 URC Normal [facility] Comment on above: Performed By: #### M 100.2200 ####[facility] [address] [place], [place], [id number] Absolute lymphocyte countOrd ered By: Allie Swann on 01-06-2025 Lymphocytes Auto (Unsp spec) [#/Vol] 0.86 10*3/uL 0.83-4.51 [facility] Absolute neutrophil countOrd ered By: Allie Swann on 01-06-2025 Neutrophils (Bld) [#/Vol] 2.4 10*3/uL 2.0-7.7 [facility] Anion gap in Serum or Plasma Ordered By: Allie Swann on 01-06-2025 Anion gap [Moles/Vol] 10 mmol/L 5-15 [facility] Automated lymphocyte count a s percentage of total leukocytesOrdered By: Allie Swann on 01-06-2025 Lymphocytes/100 WBC Auto (Unsp spec) 20.3 % 19-41 [facility] BUN/creatinine ratioOrdered By: Allie Swann on 01-06-2025 Urea nitrogen/Creatinine [Mass ratio] 21.1 mg/mg High 10-20 [facility] Basic Metabolic Profile (BMP )on 01-06-2025 BUN/CRE 21.1 RATIO High -20 [facility] Comment on above: Order Comment: PATIAyed NT REFUSED MORNING LABS. QUIN TORIBIO NOTIFIED-DSCOTT Performed By: #### L 100.0100, L500.2500, [id number] ####[facility] [address] [place], [address] Calcium [Mass/Vol] 8.9 mg/dL Normal 7.6-11.0 [facility] Comment on above: Order Comment: PATIAyde PAOLA REFUSED MORNING LABS. QUIN TORBIIO NOTIFIED-DSCOTT Performed By: #### L 100.0100, L500.2500, [id number] ####[facility] [address] [place], [address] Chloride [Moles/Vol] 107 mmol/L Normal 98-108 [facility] Comment on above: Order Comment: PATIE NT REFUSED MORNING LABS. QUIN TORIBIO NOTIFIED-DSCOTT Performed By: #### L 100.0100, L500.2500, [id number] ####[facility] [address] [place], [address] CO2 [Moles/Vol] 23.1 mmol/L Normal 21.0-32.0 [facility] Comment on above: Order Comment: PATIE NT REFUSED MORNING LABS. QUIN TORIBIO NOTIFIED-DSCOTT Performed By: #### L 100.0100, L500.2500, [id number] ####[facility] [address] [place], [address] Creatinine [Mass/Vol] 1.07 mg/dL Normal 0.70-1.20 [facility] Comment on above: Order Comment: ZEB GUEVARA REFUSED MORNING LABS. QUIN TORIBIO NOTIFIED-DSCOTT Performed By: #### L 100.0100, L500.2500, [id number] ####[facility] [address] [place], [address] ECRCL 87.17 ml/min Normal 50-250 [facility] Comment on above: Order Comment: ZEB GUEVARA REFUSED MORNING LABS. QUIN TORIBIO NOTIFIED-DSCOTT Performed By: #### L 100.0100, L500.2500, [id number] ####[facility] [address] [place], [address] GAP 10 Normal 5-15 [facility] Comment on above: Order Comment: ZEB NT REFUSED MORNING LABS. QUIN TORIBIO NOTIFIED-DSCOTT Performed By: #### L 100.0100, L500.2500, [id number] ####[facility] [address] [place], [address] GFR/1.73 sq M.predicted among non-blacks MDRD (S/P/Bld) [Vol rate/Area] 75 mL/min/{1.73_m2} Normal >60 [facility] Comment on above: Order Comment: ZEB PAOLA REFUSED MORNING LABS. QUIN TORIBIO NOTIFIED-DSCOTT Result Comment: mL/m in/1.73m2 CKD-EPI Creatinine Equation (2020) Performed By: #### L 100.0100, L500.2500, [id number] ####[facility] [address] [place], [address] Glucose [Mass/Vol] 101 mg/dL High 70-99 [facility] Comment on above: Order Comment: ZEB NT REFUSED MORNING LABS. QUIN TORIBIO NOTIFIED-DSCOTT Performed By: #### L 100.0100, L500.2500, [id number] ####[facility] [address] [place], [address] Potassium [Moles/Vol] 4.5 mmol/L Normal 3.3-5.1 [facility] Comment on above: Order Comment: ZEB NT REFUSED MORNING LABS. QUIN TORIBIO NOTIFIED-DSCOTT Performed By: #### L 100.0100, L500.2500, [id number] ####[facility] [address] [place], [address] Sodium [Moles/Vol] 139 mmol/L Normal 133-145 [facility] Comment on above: Order Comment: PATIE NT REFUSED MORNING LABS. QUIN TORIBIO NOTIFIED-DSCOTT Performed By: #### L 100.0100, L500.2500, [id number] ####[facility] [address] [place], [address] Urea nitrogen [Mass/Vol] 23 mg/dL High 4-19 [facility] Comment on above: Order Comment: PATIE NT REFUSED MORNING LABS. QUIN TORIBIO NOTIFIED-DSCOTT Performed By: #### L 100.0100, L500.2500, [id number] ####[facility] [address] [place], [address] Basophil percentageOrdered B y: Alliebri Swann on 01-06-2025 Basophils/100 WBC (Bld) 0.9 % 0-[address] [facility] Bedside Glucoseon 01-06-2025 FINGERSTICK GLU 123 mg/dL High 74-106 [facility] Comment on above: Result Comment: PETER GEMENT OF PATIENT CARE PER NURSING PROTOCOL Performed By: #### L 501.080 ####[facility] [address] [place], [address] FINGERSTICK GLU 119 mg/dL High 74-106 [facility] Comment on above: Result Comment: PETER GEMENT OF PATIENT CARE PER NURSING PROTOCOL Performed By: #### L 501.080 ####[facility] [address] [place], [address] CBC W/Diff, Automatedon - Absolute Lymph 0.86 X10 3/uL Normal 0.83-4.51 [facility] Comment on above: Performed By: #### L 100.0100, L500.2500, [id number] ####[facility] [address] [place], [address] Absolute Neut 2.4 X10 3/uL Normal 2.0-7.7 [facility] Comment on above: Performed By: #### L 100.0100, L500.2500, [id number] ####[facility] [address] [place], [address] Basophils/100 WBC (Bld) 0.9 % Normal 0-[address] [facility] Comment on above: Performed By: #### L 100.0100, L500.2500, [id number] ####[facility] [address] [place], [address] Eosinophils/100 WBC (Bld) 5.2 % High 0-5 [facility] Comment on above: Performed By: #### L 100.0100, L500.2500, [id number] ####[facility] [address] [place], [address] Erythrocyte distribution width (RBC) [Ratio] 15.2 % High 11.6-14.6 [facility] Comment on above: Performed By: #### L 100.0100, L500.2500, [id number] ####[facility] [address] [place], [address] Hematocrit (Bld) [Volume fraction] 36.3 % Low 40-54 [facility] Comment on above: Performed By: #### L 100.0100, L500.2500, [id number] ####[facility] [address] [place], [address] Hemoglobin (Bld) [Mass/Vol] 11.4 g/dL Low 13.0-16.5 [facility] Comment on above: Performed By: #### L 100.0100, L500.2500, [id number] ####[facility] [address] [place], [address] IG% 0.500 Normal 0.0-0.9 [facility] Comment on above: Result Comment: IG% - Immature Granulocytes (promyelocytes, myelocytes andmetamyelocytes) > 1% indicates that a LEFT SHIFT is Present. Performed By: #### L 100.0100, L500.2500, [id number] ####[facility] [address] [place], [address] Lymphocytes/100 WBC (Bld) 20.3 % Normal 19-41 [facility] Comment on above: Performed By: #### L 100.0100, L500.2500, [id number] ####[facility] [address] [place], [address] MCH (RBC) [Entitic mass] 26.6 pg Low 27.0-32.0 [facility] Comment on above: Performed By: #### L 100.0100, L500.2500, [id number] ####[facility] [address] [place], [address] MCHC (RBC) [Mass/Vol] 31.4 g/dL Low 32-36 [facility] Comment on above: Performed By: #### L 100.0100, L500.2500, [id number] ####[facility] [address] [place], [address] MCV (RBC) [Entitic vol] 84.8 fL Normal 80-[address] [facility] Comment on above: Performed By: #### L 100.0100, L500.2500, [id number] ####[facility] [address] [place], [address] Monocytes/100 WBC (Bld) 16.0 % High 0-[address] [facility] Comment on above: Performed By: #### L 100.0100, L500.2500, [id number] ####[facility] [address] [place], [address] Neutrophils/100 WBC (Bld) 57.1 % Normal 47-70 [facility] Comment on above: Performed By: #### L 100.0100, L500.2500, [id number] ####[facility] [address] [place], [address] Nucleated RBC (Bld) [#/Vol] 0 10*3/uL Normal 0-5 [facility] Comment on above: Performed By: #### L 100.0100, L500.2500, L501.9520 ####[facility] [address] [place], [address] Platelet mean volume (Bld) [Entitic vol] 11.5 fL Normal 6.2-12.0 [facility] Comment on above: Performed By: #### L 100.0100, L500.2500, L501.9520 ####[facility] [address] [place], [address] Platelets (Bld) [#/Vol] 157 10*3/uL Normal 150-450 [facility] Comment on above: Performed By: #### L 100.0100, L500.2500, L501.9520 ####[facility] [address] [place], [address] RBC (Bld) [#/Vol] 4.28 10*6/uL Low 4.6-6.2 [facility] Comment on above: Performed By: #### L 100.0100, L500.2500, L501.9520 ####[facility] [address] [place], [address] RDW SD 46.9 fl High 35.1-43.9 [facility] Comment on above: Performed By: #### L 100.0100, L500.2500, L501.9520 ####[facility] [address] [place], [address] WBC (Bld) [#/Vol] 4.2 10*3/uL Low 4.4-11.0 [facility] Comment on above: Performed By: #### L 100.0100, L500.2500, L501.9520 ####[facility] [address] [place], [address] Carbon dioxide, total [Moles /volume] in Central venous bloodOrdered By: Allie Swann on 01-06-2025 CO2 [Moles/Vol] 23.1 mmol/L 21.0-32.0 [facility] Chloride assayOrdered By: Chante Swann on 01-06-2025 Chloride [Moles/Vol] 107 mmol/L 98-108 [facility] Eosinophil percentageOrdered By: Allie Swann on 01-06-2025 Eosinophils/100 WBC (Bld) 5.2 % High 0-5 [facility] Erythrocyte distribution wid th ratioOrdered By: Allie Swann on 01-06-2025 Erythrocyte distribution width (RBC) [Ratio] 15.2 % High 11.6-14.6 [facility] Erythrocyte distribution wid th standard deviationOrdered By: Allie Swann on 01-06-2025 Erythrocyte distribution width (RBC) [Ratio] 46.9 fl High 35.1-43.9 [facility] Glomerular filtration rate ( GFR) estimation/1.73 sq m using serum, plasma, or whole bOrdered By: Allie Swann on 01-06-2025 GFR/1.73 sq M.predicted among non-blacks MDRD (S/P/Bld) [Vol rate/Area] 75 mL/min/{1.73_m2} >60 [facility] Comment on above: mL/min/1.73m2 CKD-EP I Creatinine Equation (2020) [facility] deOrdered By: Louie Howard on 01-06-2025 Glucose [Mass/Vol] 123 mg/dL High 74-106 [facility] Comment on above: MANAGEMENT OF PATIEN T CARE PER NURSING PROTOCOL Hematocrit Auto (Bld) [Volum e fraction]Ordered By: Allie Swann on 01-06-2025 Hematocrit (Bld) [Volume fraction] 36.3 % Low 40-54 [facility] Hemoglobin measurementOrdere d By: Allie Swann on 01-06-2025 Hemoglobin (Bld) [Mass/Vol] 11.4 g/dL Low 13.0-16.5 [facility] Immature granulocytes/100 WB C Auto (Bld)Ordered By: Allie Swann on 01-06-2025 Immature granulocytes/100 WBC (Bld) 0.500 % 0.0-0.9 [facility] Comment on above: IG% - Immature Granu locytes (promyelocytes, myelocytes and metamyelocytes) > 1% indicates that a LEFT SHIFT is Present. MCV (mean corpuscular volume ) determinationOrdered By: Allie Swann on 01-06-2025 MCV (RBC) [Entitic vol] 84.8 fL 80-[address] [facility] Mean corpuscular hemoglobin (MCH) determinationOrdered By: Allie Swann on 01-06-2025 MCH (RBC) [Entitic mass] 26.6 pg Low 27.0-32.0 [facility] Mean corpuscular hemoglobin concentration (MCHC) determinationOrdered By: Allie Swann on 01-06-2025 MCHC (RBC) [Mass/Vol] 31.4 g/dL Low 32-36 [facility] Mean platelet volume determi nationOrdered By: Allie Swann on 01-06-2025 Platelet mean volume (Bld) [Entitic vol] 11.5 fL 6.2-12.0 [facility] Monocyte percentageOrdered B y: Allie Swann on 01-06-2025 Monocytes/100 WBC (Bld) 16.0 % High 0-[address] [facility] Neutrophil percentageOrdered By: Allie Swann on 01-06-2025 Neutrophils/100 WBC (Bld) 57.1 % 47-70 [facility] Nucleated red blood cell per centageOrdered By: Allie Swann on 01-06-2025 Nucleated RBC/100 WBC (Bld) [Ratio] 0 % 0-5 [facility] Platelet countOrdered By: Chante Swann on 01-06-2025 Platelets (Bld) [#/Vol] 157 10*3/uL 150-450 [facility] Potassium measurement (mass/ volume)Ordered By: Allie Swann on 01-06-2025 Potassium (Unsp spec) [Mass/Vol] 4.5 mmol/L 3.3-5.1 [facility] RBC Auto (Bld) [#/Vol]Ordere d By: Allie Swann on 01-06-2025 RBC (Bld) [#/Vol] 4.28 10*6/uL Low 4.6-6.2 [facility] Serum creatinine measurement (mass/volume)Ordered By: Allie Swann on 01-06-2025 Creatinine [Mass/Vol] 1.07 mg/dL 0.70-1.20 [facility] Serum glucose measurement (m ass/volume)Ordered By: Allie Swann on 01-06-2025 Glucose [Mass/Vol] 101 mg/dL High 70-99 [facility] Serum or plasma calcium isidro urement (mass/volume)Ordered By: Allie Swann on 01-06-2025 Calcium [Mass/Vol] 8.9 mg/dL 7.6-11.0 [facility] Serum or plasma urea nitroge n measurement (mass/volume)Ordered By: Allie Swann on 01-06-2025 Urea nitrogen [Mass/Vol] 23 mg/dL High 4-19 [facility] Sodium levelOrdered By: Yaquelin Swann on 01-06-2025 Sodium [Moles/Vol] 139 mmol/L 133-145 [facility] TSH DL <= 0.005 mIU/L QnOrde red By: Allie Swann on 01-06-2025 TSH Qn 2.490 uIU/mL 0.300-4.200 [facility] Thyroid Stim Hormone (TSH)on 01-06-2025 TSH 2.490 uIU/mL Normal 0.300-4.200 [facility] Comment on above: Order Comment: ZEB NT REFUSED MORNING LABS. QUIN TORIBIO NOTIFIED-DSCOTT Performed By: #### L 100.0100, L500.2500, L501.9520 ####[facility] [address] [place], [place], [id number] White blood cell (WBC) count Ordered By: Allie Swann on 01-06-2025 WBC (Bld) [#/Vol] 4.2 10*3/uL Low 4.4-11.0 [facility] Absolute lymphocyte countOrd ered By: Vivek Villatoro on 01-05-2025 Lymphocytes Auto (Unsp spec) [#/Vol] 1.13 10*3/uL 0.83-4.51 [facility] Anion gap in Serum or Plasma Ordered By: Vivek Villatoro on 01-05-2025 Anion gap [Moles/Vol] 12 mmol/L - [facility] Automated lymphocyte count a s percentage of total leukocytesOrdered By: Vivek Villatoro on 01-05-2025 Lymphocytes/100 WBC Auto (Unsp spec) 23.9 % - [facility] BUN/creatinine ratioOrdered By: Vivek Villatoro on 01-05-2025 Urea nitrogen/Creatinine [Mass ratio] 19.9 mg/mg - [facility] Basic Metabolic Profile (BMP )on 01-05-2025 BUN/CRE 19.9 RATIO Normal - [facility] Comment on above: Performed By: #### L 100.0100, L500.2500 ####[facility] [address] [place], [address] Calcium [Mass/Vol] 9.7 mg/dL Normal 7.6-11.0 [facility] Comment on above: Performed By: #### L 100.0100, L500.2500 ####[facility] [address] [place], [address] Chloride [Moles/Vol] 102 mmol/L Normal 98-108 [facility] Comment on above: Performed By: #### L 100.0100, L500.2500 ####[facility] [address] [place], [address] CO2 [Moles/Vol] 25.0 mmol/L Normal 21.0-32.0 [facility] Comment on above: Performed By: #### L 100.0100, L500.2500 ####[facility] [address] [place], [address] Creatinine [Mass/Vol] 1.50 mg/dL High 0.70-1.20 [facility] Comment on above: Performed By: #### L 100.0100, L500.2500 ####[facility] [address] [place], [address] GAP 12 Normal 5-15 [facility] Comment on above: Performed By: #### L 100.0100, L500.2500 ####[facility] [address] [place], [address] GFR/1.73 sq M.predicted among non-blacks MDRD (S/P/Bld) [Vol rate/Area] 50 mL/min/{1.73_m2} Low >60 [facility] Comment on above: Result Comment: mL/m in/1.73m2 CKD-EPI Creatinine Equation (2020) Performed By: #### L 100.0100, L500.2500 ####[facility] [address] [place], [address] Glucose [Mass/Vol] 104 mg/dL High 70-99 [facility] Comment on above: Performed By: #### L 100.0100, L500.2500 ####[facility] [address] [place], [address] Potassium [Moles/Vol] 4.4 mmol/L Normal 3.3-5.1 [facility] Comment on above: Performed By: #### L 100.0100, L500.2500 ####[facility] [address] [place], [address] Sodium [Moles/Vol] 139 mmol/L Normal 133-145 [facility] Comment on above: Performed By: #### L 100.0100, L500.2500 ####[facility] [address] [place], [address] Urea nitrogen [Mass/Vol] 30 mg/dL High 4-19 [facility] Comment on above: Performed By: #### L 100.0100, L500.2500 ####[facility] [address] [place], [address] Basophil percentageOrdered B y: Vivek Villatoro on 01-05-2025 Basophils/100 WBC (Bld) 0.6 % 0-[address] [facility] Bedside Glucoseon 01-05-2025 FINGERSTICK GLU 146 mg/dL High 74-106 [facility] Comment on above: Result Comment: PETER GEMENT OF PATIENT CARE PER NURSING PROTOCOL Performed By: #### L 501.080 ####[facility] [address] [place], [address] FINGERSTICK GLU 95 mg/dL Normal 74-106 [facility] Comment on above: Result Comment: PETER GEMENT OF PATIENT CARE PER NURSING PROTOCOL Performed By: #### L 501.080 ####[facility] [address] [place], [address] Bilirubin Test strip Ql (U)O rdered By: Vivek Villatoro on 01-05-2025 Bilirubin Ql (U) Negative Negative [facility] Brain/Head without Contrasto n 01-05-2025 Brain/Head without Contrast Normal [facility] CBC W/Diff, Automatedon 12-11 Absolute Lymph 1.13 X10 3/uL Normal 0.83-4.51 [facility] Comment on above: Performed By: #### L 100.0100, L500.2500 ####[facility] [address] [place], [address] Absolute Neut 2.6 X10 3/uL Normal 2.0-7.7 [facility] Comment on above: Performed By: #### L 100.0100, L500.2500 ####[facility] [address] [place], [address] Basophils/100 WBC (Bld) 0.6 % Normal 0-[address] [facility] Comment on above: Performed By: #### L 100.0100, L500.2500 ####[facility] [address] [place], [address] Eosinophils/100 WBC (Bld) 5.1 % High 0-5 [facility] Comment on above: Performed By: #### L 100.0100, L500.2500 ####[facility] [address] [place], [address] Erythrocyte distribution width (RBC) [Ratio] 15.4 % High 11.6-14.6 [facility] Comment on above: Performed By: #### L 100.0100, L500.2500 ####[facility] [address] [place], [address] Hematocrit (Bld) [Volume fraction] 39.3 % Low 40-54 [facility] Comment on above: Performed By: #### L 100.0100, L500.2500 ####[facility] [address] [place], [address] Hemoglobin (Bld) [Mass/Vol] 12.4 g/dL Low 13.0-16.5 [facility] Comment on above: Performed By: #### L 100.0100, L500.2500 ####[facility] [address] [place], [address] IG% 0.000 Normal 0.0-0.9 [facility] Comment on above: Result Comment: IG% - Immature Granulocytes (promyelocytes, myelocytes andmetamyelocytes) > 1% indicates that a LEFT SHIFT is Present. Performed By: #### L 100.0100, L500.2500 ####[facility] [address] [place], [address] Lymphocytes/100 WBC (Bld) 23.9 % Normal 19-41 [facility] Comment on above: Performed By: #### L 100.0100, L500.2500 ####[facility] [address] [place], [address] MCH (RBC) [Entitic mass] 26.7 pg Low 27.0-32.0 [facility] Comment on above: Performed By: #### L 100.0100, L500.2500 ####[facility] [address] [place], [address] MCHC (RBC) [Mass/Vol] 31.6 g/dL Low 32-36 [facility] Comment on above: Performed By: #### L 100.0100, L500.2500 ####[facility] [address] [place], [address] MCV (RBC) [Entitic vol] 84.5 fL Normal 80-[address] [facility] Comment on above: Performed By: #### L 100.0100, L500.2500 ####[facility] [address] [place], [address] Monocytes/100 WBC (Bld) 16.1 % High 0-[address] [facility] Comment on above: Performed By: #### L 100.0100, L500.2500 ####[facility] [address] [place], [address] Neutrophils/100 WBC (Bld) 54.3 % Normal 47-70 [facility] Comment on above: Performed By: #### L 100.0100, L500.2500 ####[facility] [address] [place], [address] Nucleated RBC (Bld) [#/Vol] 0 10*3/uL Normal 0-5 [facility] Comment on above: Performed By: #### L 100.0100, L500.2500 ####[facility] [address] [place], [address] Platelet mean volume (Bld) [Entitic vol] 11.7 fL Normal 6.2-12.0 [facility] Comment on above: Performed By: #### L 100.0100, L500.2500 ####[facility] [address] [place], [address] Platelets (Bld) [#/Vol] 177 10*3/uL Normal 150-450 [facility] Comment on above: Performed By: #### L 100.0100, L500.2500 ####[facility] [address] [place], [address] RBC (Bld) [#/Vol] 4.65 10*6/uL Normal 4.6-6.2 [facility] Comment on above: Performed By: #### L 100.0100, L500.2500 ####[facility] [address] [place], [address] RDW SD 47.2 fl High 35.1-43.9 [facility] Comment on above: Performed By: #### L 100.0100, L500.2500 ####[facility] [address] [place], [address] WBC (Bld) [#/Vol] 4.7 10*3/uL Normal 4.4-11.0 [facility] Comment on above: Performed By: #### L 100.0100, L500.2500 ####[facility] [address] [place], [address] Carbon dioxide, total [Moles /volume] in Central venous bloodOrdered By: Vivek Villatoro on 01-05-2025 CO2 [Moles/Vol] 25.0 mmol/L 21.0-32.0 [facility] Chest 1 View (Portable)on Chest 1 View (Portable) Normal [facility] Chloride assayOrdered By: Marlon Villatoro on 01-05-2025 Chloride [Moles/Vol] 102 mmol/L 98-108 [facility] Emergency Department Summary on 01-05-2025 Emergency Department Summary Normal [facility] Eosinophil percentageOrdered By: Vivek Villatoro on 01-05-2025 Eosinophils/100 WBC (Bld) 5.1 % High 0-5 [facility] Erythrocyte distribution wid th ratioOrdered By: Vivek Villatoro on 01-05-2025 Erythrocyte distribution width (RBC) [Ratio] 15.4 % High 11.6-14.6 [facility] Erythrocyte distribution wid th standard deviationOrdered By: Vivek Villatoro on 01-05-2025 Erythrocyte distribution width (RBC) [Ratio] 47.2 fl High 35.1-43.9 [facility] Glomerular filtration rate ( GFR) estimation/1.73 sq m using serum, plasma, or whole bOrdered By: Vivek Villatoro on 01-05-2025 GFR/1.73 sq M.predicted among non-blacks MDRD (S/P/Bld) [Vol rate/Area] 50 mL/min/{1.73_m2} Low >60 [facility] H AND P Exam - Hospitaliston 01-05-2025 H&P Exam - Hospitalist Normal [facility] Hematocrit Auto (Bld) [Volum e fraction]Ordered By: Vivek Villatoro on 01-05-2025 Hematocrit (Bld) [Volume fraction] 39.3 % Low 40-54 [facility] Hemoglobin measurementOrdere d By: Vivek Villatoro on 01-05-2025 Hemoglobin (Bld) [Mass/Vol] 12.4 g/dL Low 13.0-16.5 [facility] Immature granulocytes/100 WB C Auto (Bld)Ordered By: Vivek Villatoro on 01-05-2025 Immature granulocytes/100 WBC (Bld) 0.000 % 0.0-0.9 [facility] Ketones Test strip Ql (U)Ord ered By: Vivek Villatoro on 01-05-2025 Ketones Ql (U) Negative Negative [facility] MCV (mean corpuscular volume ) determinationOrdered By: Vivek Villatoro on 01-05-2025 MCV (RBC) [Entitic vol] 84.5 fL 80-[address] [facility] Mean corpuscular hemoglobin (MCH) determinationOrdered By: Vivek Villatoro on 01-05-2025 MCH (RBC) [Entitic mass] 26.7 pg Low 27.0-32.0 [facility] Microscopic analysis of urin e for red blood cells (RBC)Ordered By: Vivek Villatoro on 01-05-2025 Microscopic analysis of urine for red blood cells (RBC) 5-10 SEEN /hpf 0-5 [facility] Monocyte percentageOrdered B y: Vivek Villatoro on 01-05-2025 Monocytes/100 WBC (Bld) 16.1 % High 0-[address] [facility] Mucus LM Ql (Urine sed)Order ed By: Vivek Villatoro on 01-05-2025 Mucus Ql (Urine sed) 0 SEEN /hpf [facility] Neutrophil percentageOrdered By: Vivek Villatoro on 01-05-2025 Neutrophils/100 WBC (Bld) 54.3 % 47-70 [facility] Nitrite Test strip Ql (U)Ord ered By: Vivek Villatoro on 01-05-2025 Nitrite Ql (U) Positive High Negative [facility] Platelet countOrdered By: Marlon Villatoro on 01-05-2025 Platelets (Bld) [#/Vol] 177 10*3/uL 150-450 [facility] Potassium measurement (mass/ volume)Ordered By: Vivek Villatoro on 01-05-2025 Potassium (Unsp spec) [Mass/Vol] 4.4 mmol/L 3.3-5.1 [facility] Protein Test strip Ql (U)Ord ered By: Vivek Villatoro on 01-05-2025 Protein Ql (U) 100 mg/dl High Negative [facility] RBC Auto (Bld) [#/Vol]Ordere d By: Vivek Villatoro on 01-05-2025 RBC (Bld) [#/Vol] 4.65 10*6/uL 4.6-6.2 [facility] Serum creatinine measurement (mass/volume)Ordered By: Vivek Villatoro on 01-05-2025 Creatinine [Mass/Vol] 1.50 mg/dL High 0.70-1.20 [facility] Serum glucose measurement (m ass/volume)Ordered By: Vivek Villatoro on 01-05-2025 Glucose [Mass/Vol] 104 mg/dL High 70-99 [facility] Serum or plasma calcium isidro urement (mass/volume)Ordered By: Vivek Villatoro on 01-05-2025 Calcium [Mass/Vol] 9.7 mg/dL 7.6-11.0 [facility] Serum or plasma urea nitroge n measurement (mass/volume)Ordered By: Vivek Villatoro on 01-05-2025 Urea nitrogen [Mass/Vol] 30 mg/dL High 4-19 [facility] Sodium levelOrdered By: Vivek Villatoro on 01-05-2025 Sodium [Moles/Vol] 139 mmol/L 133-145 [facility] Squamous epithelial cells de tection in urine sediment by light microscopyOrdered By: Vivek Villatoro on 01-05-2025 Epithelial cells.squamous LM Ql (Urine sed) 0 SEEN /hpf 0-5 [facility] Triple phosphate crystals de tection in urine sediment by light microscopyOrdered By: Vivek Villatoro on 01-05-2025 Triple phosphate crystals LM Ql (Urine sed) 1+ /hpf [facility] Urinalysis, Completeon 01-05 BACTERIA 2+ /hpf Normal None Seen [facility] Comment on above: Order Comment: VIVIANA CTOR TO SPECIFY Performed By: #### L 400.0001 ####[facility] [address] [place], [place], [id number] WBC 5-10 SEEN Normal 0-5 [facility] Comment on above: Order Comment: VIVIANA CTOR TO SPECIFY Performed By: #### L 400.0001 ####[facility] [address] [place], [address] RBC 5-10 SEEN Normal 0-5 [facility] Comment on above: Order Comment: VIVIANA CTOR TO SPECIFY Performed By: #### L 400.0001 ####[facility] [address] [place], [address] TRIPLE PHOS 1+ /hpf Normal [facility] Comment on above: Order Comment: VIVIANA CTOR TO SPECIFY Performed By: #### L 400.0001 ####[facility] [address] [place], [address] EPI,SQUAMOUS 0 SEEN Normal 0-5 [facility] Comment on above: Order Comment: VIVIANA CTOR TO SPECIFY Performed By: #### L 400.0001 ####[facility] [address] [place], [place], [id number] Mucus Ql (Urine sed) 0 SEEN Normal [facility] Comment on above: Order Comment: VIVIANA CTOR TO SPECIFY Performed By: #### L 400.0001 ####[facility] [address] [place], [place], [id number] Urine clarityOrdered By: Marii Villatoro on 01-05-2025 Clarity (U) Sl. Cloudy Clear [facility] Urine color determinationOrd ered By: Vivek Villatoro on 01-05-2025 Color (U) Yellow Yellow [facility] Urine cultureOrdered By: Marii Villatoro on 01-05-2025 Bacteria identified Cx Nom (U) Pseudomonas aeruginosa Abnormal [facility] Bacteria identified Cx Nom (U) Proteus mirabilis Abnormal [facility] Urine glucose detectionOrder ed By: Vivek Villatoro on 01-05-2025 Glucose Ql (U) Normal mg/dl Normal [facility] Urine leukocyte esterase det ection by dipstickOrdered By: Vivek Villatoro on 01-05-2025 Leukocyte esterase Test strip Ql (U) 500 /ul High Negative [facility] Urine pHOrdered By: Vivek waldron on 01-05-2025 pH (U) 8.0 [pH] 5.0 - 8.0 [facility] Urine sediment bacteria coun t by microscopy (number/high power field)Ordered By: Vivek Villatoro on 01-05-2025 Bacteria LM.HPF (Urine sed) [#/Area] 2 /[HPF] None Seen [facility] Urine specific gravity measu rementOrdered By: Vivek Villatoro on 01-05-2025 Specific gravity (U) [Rel density] 1.010 1.002-1.030 [facility] [place] urobilinogen measureme ntOrdered By: Vivek Villatoro on 01-05-2025 Urobilinogen Ql (U) Normal mg/dl Normal [facility] White blood cell (WBC) count Ordered By: Vivek Villatoro on 01-05-2025 WBC (Bld) [#/Vol] 4.7 10*3/uL 4.4-11.0 [facility] White blood cell countOrdere d By: Vivek Villatoro on 01-05-2025 White blood cell count 5-10 SEEN /hpf 0-5 [facility] CNCOon 01-01-2025 CNCO Letter Text [facility] CNPNon 11-28-2024 CNPN Telephone (URCANT) JADON ALVAREZ ([id number]) 1955 M Date Time Provider Department 11/28/24 SHAR DOWNS During your visit today, we recorded the following information about you: Allergies As of Date: 11/28/2024 Noted Allergy Reaction IBUPROFEN 01/12/2024 16 - Unknown Date Reviewed: 11/01/2024 Reviewed by: Shar Downs MD - Fully Assessed Reason for Visit: Orders [681] Prescriptions as of 11/28/2024 - donepezil (ARICEPT) 5 mg tablet - Gabapentin 100 mg tab Take by mouth. - heparin sod,porcine/0.9 % NaCl (HEPARIN FLUSH INTRAVENOUS) Inject intravenously. - lactulose 20 gram/30 mL solution - LANTUS SOLOSTAR U-100 INSULIN 100 unit/mL (3 mL) - lurasidone (LATUDA) 40 mg tablet - potassium chloride ER (KLOR-CON M10) 10 mEq tablet - torsemide (DEMADEX) 20 mg tablet - vancomycin HCl in 5 % dextrose (VANCOMYCIN IN DEXTROSE 5 % INTRAVENOUS) Inject intravenously. - CEFDINIR ORAL Take 300 mg by mouth two times a day. - amLODIPine (NORVASC) 5 mg tablet Take 1 tablet by mouth every afternoon. - bumetanide (BUMEX) 1 mg tablet TAKE 12 TABLET BY MOUTH TWICE DAILY - ELIQUIS 5 mg tab(s) Take 1 tablet by mouth every 12 hours. - ferrous sulfate 325 mg (65 mg iron) EC tablet - MOUNJARO 5 mg/0.5 mL pen injector INJECT 5MGS SUBCUTANEOUS EVERY WEEK ROTATE INJECTION SITES - traZODone (DESYREL) 50 mg tablet - oxyCODONE-acetaminophen (PERCOCET) 5-325 mg tablet TAKE ONE TABLET BY MOUTH EVERY SIX HOURS NEEDED FOR PAIN FOR 3 DAYS - SYMBICORT 160-4.5 mcg/actuation inhaler INHALE 2 PUFFS EVERY DAY - nystatin (MYCOSTATIN) powder Apply to affected area four times daily. - gabapentin (NEURONTIN) 300 mg capsule Take 300 mg by mouth three times a day. - atorvastatin (LIPITOR) 20 mg tablet Take 20 mg by mouth once daily. - aspirin 81 mg cap Take by mouth. Problem List As Of Date 11/28/2024 Noted Resolved Renal mass, right [N28.89] 10/30/2024 Adrenal nodule (HCC) [E27.9] 10/30/2024 Benign prostatic hyperplasia with urinary reten*10/30/2024 Encounter Status:Closed by SHAR DOWNS on 11/28/24 Normal [facility] CREATININE, POC (AK,MR)on Creatinine [Mass/Vol] 1.4 mg/dL Abnormal 0.60 - 1.30 mg/dL [facility] GFR/1.73 sq M.predicted among non-blacks MDRD (S/P/Bld) [Vol rate/Area] 54 mL/min/{1.73_m2} mL/min/1.73 m2 [facility] Interpretation and review of laboratory results Abnormal [facility] Location:[facility], [address], [place], [address] Adults (18+): eGFR is calculated using the 2020 CKD-EPI Creatinine Equation. Pediatric patients (<18): eGFR should be clinically calculated using the 2020 Silva Equation. The National [employer] provides online calculators. POINT OF CARE [facility] CT KIDNEY WO/W IVCONon 11-21 CT KIDNEY WO/W IVCON * * *Final Report* * * * * * SEE BOTTOM OF REPORT FOR ADDENDED TEXT * * * DATE OF EXAM: Nov 21 2024 11:34AM [facility] [id number] - CT KIDNEY WO/W IVCON / PROCEDURE REASON: multiple diagnoses * * * * Physician Interpretation * * * * * * * * * * * * ORIGINAL REPORT * * * * * * * * EXAMINATION: CT ABDOMEN (KIDNEY) WITHOUT AND WITH IV CONTRAST CLINICAL HISTORY: Incidentally detected left renal mass, suspicious for renal cell carcinoma. CT renal mass protocol for further evaluation. TECHNIQUE: Spiral imaging in three phases through the kidneys and including the abdomen was performed utilizing IV contrast only. No oral contrast was given. Arterial phase MIP, and nephrographic phase oblique coronal and sagittal reformations were created from thin-slice images under physician supervision on the imaging modality workstation. MQ: [id number] Contrast: IV: 125 ml of Omnipaque 350 Oral Contrast: None CT Radiation dose: Integrated dose-length product (DLP) for this visit = 2592.66 mGy*cm. CT Dose Reduction Employed: Automated exposure control(AEC) and iterative recon COMPARISON: CT abdomen/pelvis 10/10/2024 and 09/16/2024 RESULT: Renal mass assessment RIGHT: Right kidney: No nephrolithiasis or hydronephrosis. Normal enhancement of the renal parenchyma. There are multiple simple and mildly complicated renal cysts (Bosniak categories 1 and 2). No suspicious right renal mass. Right renal vasculature: Arterial anatomy: Single. No early branch ( no branch within 1 cm of ostia). Venous anatomy: single. Right ureter: Single ureter. No hydronephrosis. Right adrenal: A 1.5 cm right adrenal nodule is compatible with an adenoma (6 HU; series 3, image 56). LEFT: Left kidney: There are punctate nonobstructive left renal stones, measuring up to 0.3 cm. No ureteral stone or hydronephrosis. Normal enhancement of the renal parenchyma. A solid enhancing partially calcified mass arising from the posterior left renal lower pole (series 5, image 104) measures 6.6 cm and is compatible with a primary renal neoplasm. A solid enhancing mass arising from the anterior left renal lower pole on series 5, image 103 measures 1.2 cm and is compatible with a primary renal neoplasm. In addition, there are multiple simple and mildly complicated renal cysts (Bosniak categories 1 and 2) including a mildly complicated 7.4 cm cyst arising from the posterior left renal upper pole with thin internal septum (Bosniak 2). Left renal vasculature: Arterial anatomy: Single. No early branch ( no branch within 1 cm of ostia). Venous anatomy: single. Left ureter: Single ureter. No hydronephrosis. Left adrenal: A 2.5 cm left adrenal nodule is compatible with adenoma (-2 HU; series 3, image 265). Retroperitoneal lymphadenopathy and IVC involvement: No retroperitoneal lymphadenopathy. Patent inferior vena cava. Nonspecific subcentimeter short axis retroperitoneal lymph nodes. Abdomen: Liver: No mass. Biliary: No bile duct dilation. Gallstones are within a nondilated gallbladder. Spleen: No mass. No splenomegaly. Pancreas: No pancreatic ductal dilatation. There are a few cystic foci within the pancreatic body and tail (series 4, image 65-67), measuring up to 1.3 cm, compatible with small branch duct IPMNs. GI tract: The imaged bowel is normal in caliber and without evidence of wall thickening or obstruction. Lymph nodes (other): No abdominal lymphadenopathy. Mesentery/Peritoneum: No ascites or mass. Retroperitoneum: No mass. Vasculature (other): - Abdominal aorta: Atherosclerotic calcifications without aneurysm. - Celiac and SMA: Atherosclerotic calcifications at the origins. - Portal venous system (SMV, splenic vein, portal vein and branches): Patent. - Hepatic veins: Incompletely opacified, likely due to early phase of enhancement. - IVC: Patent IVC without thrombus. Bones/Soft Tissues: Degenerative change involves the lumbar spine. No destructive lytic or blastic osseous abnormality. Lower thorax: Unremarkable. Localizer images: No additional findings. IMPRESSION: 1. A 6.6 cm solid enhancing mass arising from the POSTERIOR LEFT RENAL LOWER POLE is compatible with a primary renal cell carcinoma. 2. A 1.2 cm solid enhancing mass arising from the ANTERIOR LEFT RENAL LOWER POLE is compatible with a primary renal cell carcinoma. 3. Patent renal veins and inferior vena cava. No abdominal metastatic disease. 4. Bilateral adrenal nodules, compatible with adenomas. 5. 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 These could be further evaluated with MRI abdomen/MRCP. ACTIONABLE RESULT: FOLLOW-UP Acuity: Actionable Findings: Pancreas/Biliary Routing Code: PB_1 Recommendation: MRI PANCREAS/BILIARY WO/W IV CONTRAST Time Frame: At the discretion of the clinical team. COMMUNICATION: Results will be communicated with the ordering provider via [employer] staff mes (more content not included)... [facility] Bedside Glucoseon 11-15-2024 FINGERSTICK GLU 110 mg/dL High 74-106 [facility] Comment on above: Result Comment: PETER HINSON OF PATIENT CARE PER NURSING PROTOCOL Performed By: #### L 501.080 ####[facility] [id number] [place], [address] [facility] deOrdered By: Aaron Shannon on 11-08-2024 Glucose [Mass/Vol] 110 mg/dL High 74-106 [facility] Comment on above: MANAGEMENT OF PATIEN T CARE PER NURSING PROTOCOL CNOVon 11-01-2024 CNOV Office Visit (URCANT ) DALEJADON FERRER ([id number]) 1955 M Date Time Provider Department 11/01/24 2:15 PM SHAR DOWNS URMICHELET During your visit today, we recorded the following information about you: Shar Downs MD 11/01/2024 2:53 PM Signed [facility] ESTABLISHED PATIENT NOTE PATIENT: Jadon Alvarez (69 year old) PCP: Ignacia Reyna DO DATE OF SERVICE: 11/01/2024 SUMMARY: Mr. Alvarez is a 69 year old male who is here for: Assessment AND Plan Renal mass, left Left 5.6 cm exophytic renal mass Multiple renal cysts Not fully characterized on single phase study Plan CT renal protocol. Plan CXR Follow up to review results Orders: CT KIDNEY WO/W IVCON; Future iv contrast (will be provided with radiology test); CT kidney wow Inject, intravenously, once for 1 dose.No IV access, insert saline lock prior to the beginning of sedation, infusion, injection of imaging exam. Discontinue saline lock post exam. If Pt. has a central line or IVAD, may access for administration according to line specific nursing protocol. Once exam is complete flush line and de-access according to line specific nursing protocol in the CT contrast administration guidelines link. CREATININE BLD; Future XR CHEST 2V FRONTAL/LAT; Future Adrenal nodule (HCC) Left 1.6 cm incidental adrenal nodule Benign prostatic hyperplasia with urinary retention Poor health Wheelchair Aricept for dementia In nursing facility Morbid obesity Anticoagulated on Eliquis [address] Cystoscopy in 2023 On tamsulosin Chronic indwelling [place] Can stop tamsulosin Plan change catheter every 4 weeks at facility Other specified disorders of kidney and ureter Orders: CT KIDNEY WO/W IVCON; Future FOLLOW UP: Return in about 4 weeks (around 11/29/2024). CHIEF COMPLAINT: Patient presents with: Kidney Problem: Mass HISTORY OF PRESENT ILLNESS: Prior notes were reviewed. The patient reports fatigue and ongoing issues with a urinary catheter. He notes a recent catheter change resulted in significant bleeding for 2 days, necessitating hospitalization. He expresses a desire to regain the ability to void independently, but acknowledges that his prostate is causing a complete urinary obstruction. He inquires about the possibility of surgery to address this issue. A recent scan, not specifically designed to evaluate the kidneys, revealed a suspicious mass on the left kidney. 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 He expresses concern about the potential need for surgery, given his current medical condition. REVIEW OF SYSTEMS: Genitourinary: Unable to void Constitutional: unintentional weight loss - denies, fevers - denies Cardiovascular: new or worsening chest pain - denies Respiratory: new or worsening shortness of breath - denies Gastrointestinal: constipation - denies, vomiting - denies Hematologic/Lymphatic: easy bleeding or bruising - denies ALLERGIES: ALLERGIES Allergen Reactions Ibuprofen Unknown MEDICATIONS: donepezil (ARICEPT) 5 mg tablet Gabapentin 100 mg tab Take by mouth. heparin sod,porcine/0.9 % NaCl (HEPARIN FLUSH INTRAVENOUS) Inject intravenously. lactulose 20 gram/30 mL solution LANTUS SOLOSTAR U-100 INSULIN 100 unit/mL (3 mL) lurasidone (LATUDA) 40 mg tablet potassium chloride ER (KLOR-CON M10) 10 mEq tablet torsemide (DEMADEX) 20 mg tablet vancomycin HCl in 5 % dextrose (VANCOMYCIN IN DEXTROSE 5 % INTRAVENOUS) Inject intravenously. amLODIPine (NORVASC) 5 mg tablet Take 1 tablet by mouth every afternoon. ELIQUIS 5 mg tab(s) Take 1 tablet by mouth every 12 hours. traZODone (DESYREL) 50 mg tablet SYMBICORT 160-4.5 mcg/actuation inhaler INHALE 2 PUFFS EVERY DAY atorvastatin (LIPITOR) 20 mg tablet Take 20 mg by mouth once daily. aspirin 81 mg cap Take by mouth. iv contrast (will be provided with radiology test) CT kidney wow Inject, intravenously, once for 1 dose.No IV access, insert saline lock prior to the beginning of sedation, infusion, injection of imaging exam. Discontinue saline lock post exam. If Pt. has a central line or IVAD, may access for administration according to line specific nursing protocol. Once exam is complete flush line and de-access according to line specific nursing protocol in the CT contrast administration guidelines link. CEFDINIR ORAL Take 300 mg by m (more content not included)... Normal [facility] .GFRon 10-23-2024 Estimated Glomerular Filtration Rate 59 ml/min/1.73sqm Normal [facility] Comment on above: Result Comment: Stages of Chronic Kidney Disease (CKD) Stage Description eGFR(ml/min/1.73 sq.m.) CKD 1 Normal kidney function or >=90 normal kindney function with possible kidney damage (ex. Proteinuria) CKD 2 Kidney damage with mild loss 60-89 of kidney function CKD 3a Mild to moderate loss of kidney 45-59 function CKD 3b Moderate to severe loss of 30-44 of kindey function CKD 4 Severe loss of kidney function 15-29 CKD 5 Kidney failure <15 Note: (go live 2024) the eGFR calculation was updated to the 2020 CKD-EPI creatinine equation without a race factor to calculate the eGFR results. Performed By: #### C BC, ANEU, MG, ADIFF, GFR, BMP #### [address] [address] .MDWon 10-23-2024 Monocyte Distribution Width 16.95 Normal 0.00-20.00 [facility] Comment on above: Result Comment: For ED adult patients suspected of sepsis, MDW<=20.0 does not rule out sepsis or risk of sepsis Performed By: #### C BC, ANEU, MG, ADIFF, GFR, BMP #### [address] [address] .Manual Diffon 10-23-2024 Atypical Lymphs 2.0 % Normal 0.0-5.0 [facility] Comment on above: Performed By: #### C BC, ANEU, MG, ADIFF, GFR, BMP #### [address] [address] Aytpical Lymph, Abs Manual 0.1 10 3/mcL Normal 0.0-0.5 [facility] Comment on above: Performed By: #### C BC, ANEU, MG, ADIFF, GFR, BMP #### [address] [address] Bands 8.0 % High 0.0-5.0 [facility] Comment on above: Performed By: #### C BC, ANEU, MG, ADIFF, GFR, BMP #### [address] [address] Basophil %, Manual 0.0 % Normal 0.0-2.5 [facility] Comment on above: Performed By: #### C BC, ANEU, MG, ADIFF, GFR, BMP #### [address] [address] Basophil, Abs Manual 0.0 10 3/mcL Normal 0.0-0.3 [facility] Comment on above: Performed By: #### C BC, ANEU, MG, ADIFF, GFR, BMP #### [place] [address] Eosinophil %, Manual 2.0 % Normal 0.0-6.0 [facility] Comment on above: Performed By: #### C BC, ANEU, MG, ADIFF, GFR, BMP #### [address] [address] Eosinophil, Abs Manual 0.1 10 3/mcL Normal 0.0-0.7 [facility] Comment on above: Performed By: #### C BC, ANEU, MG, ADIFF, GFR, BMP #### [address] [address] Lymphocyte %, Manual 34.0 % Normal 20.0-40.0 [facility] Comment on above: Performed By: #### C BC, ANEU, MG, ADIFF, GFR, BMP #### [address] [address] Lymphocyte, Abs Manual 0.9 10 3/mcL Normal 0.9-4.3 [facility] Comment on above: Performed By: #### C BC, ANEU, MG, ADIFF, GFR, BMP #### [place] [id number] Monocyte %, Manual 2.0 % Normal 2.0-13.0 [facility] Comment on above: Performed By: #### C BC, ANEU, MG, ADIFF, GFR, BMP #### [address] [address] Monocyte, Abs Manual 0.1 10 3/mcL Normal 0.1-1.4 [facility] Comment on above: Performed By: #### C BC, ANEU, MG, ADIFF, GFR, BMP #### [address] [address] Neutrophil %, Manual 52.0 % Normal 50.0-75.0 [facility] Comment on above: Performed By: #### C BC, ANEU, MG, ADIFF, GFR, BMP #### [address] [address] Neutrophil, Abs Manual 1.5 10 3/mcL Low 2.3-8.1 [facility] Comment on above: Performed By: #### C BC, ANEU, MG, ADIFF, GFR, BMP #### [address] [address] Nucleated RBC 0.0 /100 WBC Normal [facility] Comment on above: Performed By: #### C BC, ANEU, MG, ADIFF, GFR, BMP #### [address] [address] .Morphon 10-23-2024 Platelet Estimate Normal Normal [facility] Comment on above: Performed By: #### C BC, ANEU, MG, ADIFF, GFR, BMP #### [address] [address] RBC morphology finding Nom (Bld) Normal Normal [facility] Comment on above: Performed By: #### C BC, ANEU, MG, ADIFF, GFR, BMP #### [address] [address] ACETAon 10-23-2024 Acetaminophen [Mass/Vol] 0.0 ug/mL Low 10.0-30.0 [facility] Comment on above: Performed By: #### C BC, ANEU, MG, ADIFF, GFR, BMP #### [place] [address] Abril 10-23-2024 Ethanol Level <3 Normal [facility] Comment on above: Performed By: #### C BC, ANEU, MG, ADIFF, GFR, BMP #### [place] [address] CBCon 10-23-2024 Erythrocyte distribution width (RBC) [Ratio] 15.7 % High 11.5-15.5 [facility] Comment on above: Performed By: #### C BC, ANEU, MG, ADIFF, GFR, BMP #### [place] [address] Hematocrit (Bld) [Volume fraction] 34.2 % Low 40.0-52.0 [facility] Comment on above: Performed By: #### C BC, ANEU, MG, ADIFF, GFR, BMP #### [place] [address] Hgb 11.1 G/dL Low 13.0-17.5 [facility] Comment on above: Performed By: #### C BC, ANEU, MG, ADIFF, GFR, BMP #### [place] [address] MCH (RBC) [Entitic mass] 27.5 pg Normal 27.0-33.0 [facility] Comment on above: Performed By: #### C BC, ANEU, MG, ADIFF, GFR, BMP #### [place] [address] MCHC 32.6 G/dL Normal 32.0-36.0 [facility] Comment on above: Performed By: #### C BC, ANEU, MG, ADIFF, GFR, BMP #### [place] [address] MCV (RBC) [Entitic vol] 84.3 fL Normal 81.0-100.0 [facility] Comment on above: Performed By: #### C BC, ANEU, MG, ADIFF, GFR, BMP #### [address] [address] Platelet 217 10 3/mcL Normal 150-450 [facility] Comment on above: Performed By: #### C BC, ANEU, MG, ADIFF, GFR, BMP #### [address] [address] Platelet mean volume (Bld) [Entitic vol] 9.5 fL Normal 6.4-10.5 [facility] Comment on above: Performed By: #### C BC, ANEU, MG, ADIFF, GFR, BMP #### [address] [address] RBC 4.06 10 6/mcL Low 4.50-6.00 [facility] Comment on above: Performed By: #### C BC, ANEU, MG, ADIFF, GFR, BMP #### [address] [address] WBC 2.8 10 3/mcL Low 4.5-10.8 [facility] Comment on above: Performed By: #### C BC, ANEU, MG, ADIFF, GFR, BMP #### [address] [address] CMPon 10-23-2024 Albumin Level 2.8 G/dL Low 3.4-4.8 [facility] Comment on above: Performed By: #### C BC, ANEU, MG, ADIFF, GFR, BMP #### [address] [address] Albumin/Globulin [Mass ratio] 0.7 {ratio} Low 1.1-2.5 [facility] Comment on above: Performed By: #### C BC, ANEU, MG, ADIFF, GFR, BMP #### [address] [address] ALP [Catalytic activity/Vol] 89 U/L Normal 40-135 [facility] Comment on above: Performed By: #### C BC, ANEU, MG, ADIFF, GFR, BMP #### [address] [address] ALT [Catalytic activity/Vol] 14 U/L Low 16-63 [facility] Comment on above: Performed By: #### C BC, ANEU, MG, ADIFF, GFR, BMP #### [address] [address] AST [Catalytic activity/Vol] 15 U/L Normal 10-40 [facility] Comment on above: Performed By: #### C BC, ANEU, MG, ADIFF, GFR, BMP #### [address] [address] Bili Total 0.5 mg/dL Normal 0.2-1.0 [facility] Comment on above: Result Comment: Use of this assay is not recommended for patients undergoing treatment with eltrombopag due to the potential for falsely elevated results. Performed By: #### C BC, ANEU, MG, ADIFF, GFR, BMP #### [address] [address] BUN/Creatinine Ratio 14 ratio Normal 7-27 [facility] Comment on above: Performed By: #### C BC, ANEU, MG, ADIFF, GFR, BMP #### [address] [address] Calcium [Mass/Vol] 9.1 mg/dL Normal 8.4-10.2 [facility] Comment on above: Performed By: #### C BC, ANEU, MG, ADIFF, GFR, BMP #### [address] [address] Chloride [Moles/Vol] 104 mmol/L Normal 98-107 [facility] Comment on above: Performed By: #### C BC, ANEU, MG, ADIFF, GFR, BMP #### [address] [address] CO2 [Moles/Vol] 31 mmol/L Normal 23-31 [facility] Comment on above: Performed By: #### C BC, ANEU, MG, ADIFF, GFR, BMP #### [address] [address] Creatinine [Mass/Vol] 1.30 mg/dL Normal 0.70-1.30 [facility] Comment on above: Result Comment: Test ing performed on Siemens Dimension EXL analyzer using a modified kinetic Uyen technique. Performed By: #### C BC, ANEU, MG, ADIFF, GFR, BMP #### [address] [address] Electrolyte Balance 4.0 mEq/L Normal 4.0-15.0 [facility] Comment on above: Performed By: #### C BC, ANEU, MG, ADIFF, GFR, BMP #### [address] [address] Globulin 4.1 G/dL High 1.5-3.8 [facility] Comment on above: Performed By: #### C BC, ANEU, MG, ADIFF, GFR, BMP #### [address] [address] Glucose [Mass/Vol] 101 mg/dL Normal 80-115 [facility] Comment on above: Performed By: #### C BC, ANEU, MG, ADIFF, GFR, BMP #### [address] [address] Potassium [Moles/Vol] 4.8 mmol/L Normal 3.5-5.1 [facility] Comment on above: Performed By: #### C BC, ANEU, MG, ADIFF, GFR, BMP #### [address] [address] Sodium [Moles/Vol] 139 mmol/L Normal 136-145 [facility] Comment on above: Performed By: #### C BC, ANEU, MG, ADIFF, GFR, BMP #### [address] [address] Total Protein 6.9 G/dL Normal 6.4-8.2 [facility] Comment on above: Performed By: #### C BC, ANEU, MG, ADIFF, GFR, BMP #### [address] [address] Urea nitrogen [Mass/Vol] 18 mg/dL Normal 7-18 [facility] Comment on above: Performed By: #### C BC, ANEU, MG, ADIFF, GFR, BMP #### [address] [address] CVFLURVon 10-23-2024 FLU A PCR Negative Normal Negative [facility] Comment on above: Performed By: #### C VFLURV #### [place] [address] FLU B PCR Negative Normal Negative [facility] Comment on above: Performed By: #### C VFLURV #### [place] [address] RSV PCR Negative Normal Negative [facility] Comment on above: Performed By: #### C VFLURV #### [place] [address] SARS-CoV-2 (COVID-19) RNA SUMAN+probe Ql (Unsp spec) Negative Normal Negative [facility] Comment on above: Result Comment: Resu lts from the Xpert Xpress CoV-2/Flu/RSV plus test should be correlated with the clinical history, epidemiological data, and other data available to the clinical evaluating the patient. Performance of the Xpert Xpress CoV-2/Flu/RSV plus test has only been established in nasopharyngeal swab specimen. Erroneous test results might occur from improper specimen collection, failure to follow the recommended sample collection, handling and storage procedures, technical error, or sample mix-up. False negative results may occur if a virus is present at a level below the analytical limit of detection. Viral nucleic acid may persist in vivo, independent of virus viability. Detection of analyte target(s) does not imply that the corresponding virus(es) are infectious or are the causative agents for clinical symptoms. Recent patient exposure to FluMist or other live attenuated influenza vaccines may cause inaccurate positive results. Performed By: #### C VFLURV #### [place] [id number] SALon 10-23-2024 Salicylate Level 1.1 mg/dL Low 2.8-20.0 [facility] Comment on above: Performed By: #### C BC, ANEU, MG, ADIFF, GFR, BMP #### [place] [address] UDRUGon 10-23-2024 Amphetamine (u) Negative Normal Negative [facility] [facility] Comment on above: Performed By: #### C BC, ANEU, MG, ADIFF, GFR, BMP #### [place] [address] Barbiturate (u) Negative Normal Negative [facility] Comment on above: Performed By: #### C BC, ANEU, MG, ADIFF, GFR, BMP #### [place] [address] Benzodiazepine (u) Negative Normal Negative [facility] Comment on above: Performed By: #### C BC, ANEU, MG, ADIFF, GFR, BMP #### [place] [address] Cannabinoid (u) Negative Normal Negative [facility] Comment on above: Performed By: #### C BC, ANEU, MG, ADIFF, GFR, BMP #### [place] [address] Cocaine Ql (U) Negative Normal Negative [facility] Comment on above: Performed By: #### C BC, ANEU, MG, ADIFF, GFR, BMP #### [place] [address] Methadone Ql (U) Negative Normal Negative [facility] Comment on above: Performed By: #### C BC, ANEU, MG, ADIFF, GFR, BMP #### [place] [address] Opiate (u) Negative Normal Negative [facility] Comment on above: Performed By: #### C BC, ANEU, MG, ADIFF, GFR, BMP #### [place] [address] PCP (u) Negative Normal Negative [facility] Comment on above: Performed By: #### C BC, ANEU, MG, ADIFF, GFR, BMP #### [address] [address] Urine Drugs screened: See Below Normal [facility] Comment on above: Result Comment: This drug screen is a presumptive screening only. No confirmation will be performed unless requested. Drugs screened include: Threshold Amphetamines/Methamphetamines 1,000 ng/mL Barbiturates 200 ng/mL Benzodiazepine metabolites 200 ng/mL Cannabinoids (THC metabolites) 50 ng/mL Cocaine 300 ng/mL Opiates 300 ng/mL Methadone 300 ng/mL Phencyclidine (PCP) 25 ng/mL Testing has been performed FOR MEDICAL PURPOSES ONLY. Performed By: #### C BC, ANEU, MG, ADIFF, GFR, BMP #### [address] [address] URINon 10-23-2024 Color (U) Yellow Normal [facility] Comment on above: Performed By: #### C BC, ANEU, MG, ADIFF, GFR, BMP #### [address] [address] Glucose (U) [Mass/Vol] Negative Normal Negative [facility] Comment on above: Performed By: #### C BC, ANEU, MG, ADIFF, GFR, BMP #### [address] [address] Ketones Ql (U) Negative Normal Negative [facility] Comment on above: Performed By: #### C BC, ANEU, MG, ADIFF, GFR, BMP #### [address] [address] Protein (U) [Mass/Vol] 100 mg/dL Abnormal Negative [facility] Comment on above: Performed By: #### C BC, ANEU, MG, ADIFF, GFR, BMP #### [address] [address] UA Appear Clear Normal Clear [facility] Comment on above: Performed By: #### C BC, ANEU, MG, ADIFF, GFR, BMP #### [address] [address] UA Blood Moderate Abnormal Negative [facility] Comment on above: Performed By: #### C BC, ANEU, MG, ADIFF, GFR, BMP #### [place] [address] UA Leuk Est Negative Normal Negative [facility] Comment on above: Performed By: #### C BC, ANEU, MG, ADIFF, GFR, BMP #### [place] [address] UA Nitrite Negative Normal Negative [facility] Comment on above: Performed By: #### C BC, ANEU, MG, ADIFF, GFR, BMP #### [place] [address] UA pH 6.0 Normal 5.0 - 8.0 [facility] Comment on above: Performed By: #### C BC, ANEU, MG, ADIFF, GFR, BMP #### [place] [address] UA Spec Grav >=1.030 Abnormal 1.015-1.025 [facility] Comment on above: Performed By: #### C BC, ANEU, MG, ADIFF, GFR, BMP #### [place] [address] UA Specimen Type Clean Catch Normal [facility] Comment on above: Performed By: #### C BC, ANEU, MG, ADIFF, GFR, BMP #### [place] [address] UA Urobilinogen 0.2 E.U./dL Normal 0.2-1.0 [facility] Comment on above: Performed By: #### C BC, ANEU, MG, ADIFF, GFR, BMP #### [place] [address] Urobilinogen (U) [Mass/Vol] Negative Normal Negative [facility] Comment on above: Performed By: #### C BC, ANEU, MG, ADIFF, GFR, BMP #### [place] [address] Culture, Blood (WB)on 2024 CUB No growth in 5 days. Normal [facility] Comment on above: Performed By: #### M 200.1000 ####[facility] [address] [place], [address] Basic Metabolic Profile (BMP )on 10-19-2024 BUN Normal 4-19 [facility] Comment on above: Result Comment: Canc elled via OM: Order cancelled - Patient discharged Performed By: #### L 500.2500, L100.0100 ####[facility] [address] [place], [address] BUN/CRE Normal 10-20 [facility] Comment on above: Result Comment: Canc elled via OM: Order cancelled - Patient discharged Performed By: #### L 500.2500, L100.0100 ####[facility] [address] [place], [address] Calcium Normal 7.6-11.0 [facility] Comment on above: Result Comment: Canc elled via OM: Order cancelled - Patient discharged Performed By: #### L 500.2500, L100.0100 ####[facility] [address] [place], [address] CL Normal 98-108 [facility] Comment on above: Result Comment: Canc elled via OM: Order cancelled - Patient discharged Performed By: #### L 500.2500, L100.0100 ####[facility] [address] [place], [address] CO2 Normal 21.0-32.0 [facility] Comment on above: Result Comment: Canc elled via OM: Order cancelled - Patient discharged Performed By: #### L 500.2500, L100.0100 ####[facility] [address] [place], [address] CREAT,SERUM Normal 0.70-1.20 [facility] Comment on above: Result Comment: Canc elled via OM: Order cancelled - Patient discharged Performed By: #### L 500.2500, L100.0100 ####[facility] [address] [place], [address] eGFR Normal >60 [facility] Comment on above: Result Comment: Canc elled via OM: Order cancelled - Patient discharged Performed By: #### L 500.2500, L100.0100 ####[facility] [address] [place], [address] GAP Normal 5-15 [facility] Comment on above: Result Comment: Canc elled via OM: Order cancelled - Patient discharged Performed By: #### L 500.2500, L100.0100 ####[facility] [address] [place], [address] GLU Normal 70-99 [facility] Comment on above: Result Comment: Canc elled via OM: Order cancelled - Patient discharged Performed By: #### L 500.2500, L100.0100 ####[facility] [address] [place], [address] Potassium Normal 3.3-5.1 [facility] Comment on above: Result Comment: Canc elled via OM: Order cancelled - Patient discharged Performed By: #### L 500.2500, L100.0100 ####[facility] [address] [place], [address] Basic Metabolic Profile (BMP) Normal 133-145 [facility] Comment on above: Result Comment: Canc elled via OM: Order cancelled - Patient discharged Performed By: #### L 500.2500, L100.0100 ####[facility] [address] [place], [address] CBC W/Diff, Automatedon 04-1 0-2024 Absolute Neut Normal 2.0-7.7 [facility] Comment on above: Result Comment: Canc elled via OM: Order cancelled - Patient discharged Performed By: #### L 500.2500, L100.0100 ####[facility] [address] [place], [address] HCT Normal 40-54 [facility] Comment on above: Result Comment: Canc elled via OM: Order cancelled - Patient discharged Performed By: #### L 500.2500, L100.0100 ####[facility] [address] [place], [address] HGB Normal 13.0-16.5 [facility] Comment on above: Result Comment: Canc elled via OM: Order cancelled - Patient discharged Performed By: #### L 500.2500, L100.0100 ####[facility] [address] [place], [address] MCH Normal 27.0-32.0 [facility] Comment on above: Result Comment: Canc elled via OM: Order cancelled - Patient discharged Performed By: #### L 500.2500, L100.0100 ####[facility] [address] [place], [address] MCHC Normal 32-36 [facility] Comment on above: Result Comment: Canc elled via OM: Order cancelled - Patient discharged Performed By: #### L 500.2500, L100.0100 ####[facility] [address] [place], [address] MCV Normal 80-94 [facility] Comment on above: Result Comment: Canc elled via OM: Order cancelled - Patient discharged Performed By: #### L 500.2500, L100.0100 ####[facility] [address] [place], [address] NEUT% Normal 47-70 [facility] Comment on above: Result Comment: Canc elled via OM: Order cancelled - Patient discharged Performed By: #### L 500.2500, L100.0100 ####[facility] [address] [place], [address] PLT Normal 150-450 [facility] Comment on above: Result Comment: Canc elled via OM: Order cancelled - Patient discharged Performed By: #### L 500.2500, L100.0100 ####[facility] [address] [place], [address] RBC Normal 4.6-6.2 [facility] Comment on above: Result Comment: Canc elled via OM: Order cancelled - Patient discharged Performed By: #### L 500.2500, L100.0100 ####[facility] [address] [place], [address] RDW CV Normal 11.6-14.6 [facility] Comment on above: Result Comment: Canc elled via OM: Order cancelled - Patient discharged Performed By: #### L 500.2500, L100.0100 ####[facility] [address] [place], [address] RDW SD Normal 35.1-43.9 [facility] Comment on above: Result Comment: Canc elled via OM: Order cancelled - Patient discharged Performed By: #### L 500.2500, L100.0100 ####[facility] [address] [place], [address] WBC Normal 4.4-11.0 [facility] Comment on above: Result Comment: Canc elled via OM: Order cancelled - Patient discharged Performed By: #### L 500.2500, L100.0100 ####[facility] [address] [place], [address] Absolute lymphocyte countOrd ered By: Vivek Gates on 10-18-2024 Lymphocytes Auto (Unsp spec) [#/Vol] 0.95 10*3/uL 0.83-4.51 [facility] Absolute neutrophil countOrd ered By: Vivek Gates on 10-18-2024 Neutrophils (Bld) [#/Vol] 2.5 10*3/uL 2.0-7.7 [facility] Anion gap in Serum or Plasma Ordered By: Vivek Gates on 10-18-2024 Anion gap [Moles/Vol] 8 mmol/L - [facility] Automated lymphocyte count a s percentage of total leukocytesOrdered By: Vivek Gates on 10-18-2024 Lymphocytes/100 WBC Auto (Unsp spec) 22.8 % [facility] BUN/creatinine ratioOrdered By: Vivek Gates on 10-18-2024 Urea nitrogen/Creatinine [Mass ratio] 15.5 mg/mg - [facility] Basic Metabolic Profile (BMP )on 10-18-2024 BUN/CRE 15.5 RATIO Normal 04-30 [facility] Comment on above: Performed By: #### L 500.2500, L100.0100 ####[facility] [address] [place], [address] Calcium [Mass/Vol] 9.0 mg/dL Normal 7.6-11.0 [facility] Comment on above: Performed By: #### L 500.2500, L100.0100 ####[facility] [address] [place], [address] Chloride [Moles/Vol] 102 mmol/L Normal 98-108 [facility] Comment on above: Performed By: #### L 500.2500, L100.0100 ####[facility] [address] [place], [address] CO2 [Moles/Vol] 25.9 mmol/L Normal 21.0-32.0 [facility] Comment on above: Performed By: #### L 500.2500, L100.0100 ####[facility] [address] [place], [address] Creatinine [Mass/Vol] 0.92 mg/dL Normal 0.70-1.20 [facility] Comment on above: Performed By: #### L 500.2500, L100.0100 ####[facility] [address] [place], [address] ECRCL 101.83 ml/min Normal 50-250 [facility] Comment on above: Performed By: #### L 500.2500, L100.0100 ####[facility] [address] [place], [address] GAP 8 Normal 5-15 [facility] Comment on above: Performed By: #### L 500.2500, L100.0100 ####[facility] [address] [place], [address] GFR/1.73 sq M.predicted among non-blacks MDRD (S/P/Bld) [Vol rate/Area] 90 mL/min/{1.73_m2} Normal >60 [facility] Comment on above: Result Comment: mL/m in/1.73m2 CKD-EPI Creatinine Equation (2020) Performed By: #### L 500.2500, L100.0100 ####[facility] [address] [place], [address] Glucose [Mass/Vol] 104 mg/dL High 70-99 [facility] Comment on above: Performed By: #### L 500.2500, L100.0100 ####[facility] [address] [place], [address] Potassium [Moles/Vol] 4.1 mmol/L Normal 3.3-5.1 [facility] Comment on above: Performed By: #### L 500.2500, L100.0100 ####[facility] [address] [place], [address] Sodium [Moles/Vol] 136 mmol/L Normal 133-145 [facility] Comment on above: Performed By: #### L 500.2500, L100.0100 ####[facility] [address] [place], [address] Urea nitrogen [Mass/Vol] 14 mg/dL Normal 4-19 [facility] Comment on above: Performed By: #### L 500.2500, L100.0100 ####[facility] [address] [place], [address] Basophil percentageOrdered B y: Vivek Gates on 10-18-2024 Basophils/100 WBC (Bld) 0.5 % 0-[address] [facility] Bedside Glucoseon 10-18-2024 FINGERSTICK GLU 146 mg/dL High 74-106 [facility] Comment on above: Result Comment: PETER GEMENT OF PATIENT CARE PER NURSING PROTOCOL Performed By: #### L 501.080 ####[facility] [address] [place], [address] FINGERSTICK GLU 155 mg/dL High 74-106 [facility] Comment on above: Result Comment: PETER GEMENT OF PATIENT CARE PER NURSING PROTOCOL Performed By: #### L 501.080 ####[facility] [address] [place], [address] FINGERSTICK GLU 92 mg/dL Normal 74-106 [facility] Comment on above: Result Comment: PETER GEMENT OF PATIENT CARE PER NURSING PROTOCOL Performed By: #### L 501.080 ####[facility] [address] [place], [address] FINGERSTICK GLU 121 mg/dL High 74-106 [facility] Comment on above: Result Comment: PETER GEMENT OF PATIENT CARE PER NURSING PROTOCOL Performed By: #### L 501.080 ####[facility] [address] [place], [address] CBC W/Diff, Automatedon 04-0 Absolute Lymph 0.95 X10 3/uL Normal 0.83-4.51 [facility] Comment on above: Performed By: #### L 500.2500, L100.0100 ####[facility] [address] [place], [address] Absolute Neut 2.5 X10 3/uL Normal 2.0-7.7 [facility] Comment on above: Performed By: #### L 500.2500, L100.0100 ####[facility] [address] [place], [address] Basophils/100 WBC (Bld) 0.5 % Normal 0-[address] [facility] Comment on above: Performed By: #### L 500.2500, L100.0100 ####[facility] [address] [place], [address] Eosinophils/100 WBC (Bld) 1.7 % Normal 0-5 [facility] Comment on above: Performed By: #### L 500.2500, L100.0100 ####[facility] [address] [place], [address] Erythrocyte distribution width (RBC) [Ratio] 15.9 % High 11.6-14.6 [facility] Comment on above: Performed By: #### L 500.2500, L100.0100 ####[facility] [address] [place], [address] Hematocrit (Bld) [Volume fraction] 32.2 % Low 40-54 [facility] Comment on above: Performed By: #### L 500.2500, L100.0100 ####[facility] [address] [place], [address] Hemoglobin (Bld) [Mass/Vol] 10.3 g/dL Low 13.0-16.5 [facility] Comment on above: Performed By: #### L 500.2500, L100.0100 ####[facility] [address] [place], [address] IG% 0.700 Normal 0.0-0.9 [facility] Comment on above: Result Comment: IG% - Immature Granulocytes (promyelocytes, myelocytes andmetamyelocytes) > 1% indicates that a LEFT SHIFT is Present. Performed By: #### L 500.2500, L100.0100 ####[facility] [address] [place], [address] Lymphocytes/100 WBC (Bld) 22.8 % Normal 19-41 [facility] Comment on above: Performed By: #### L 500.2500, L100.0100 ####[facility] [address] [place], [address] MCH (RBC) [Entitic mass] 27.7 pg Normal 27.0-32.0 [facility] Comment on above: Performed By: #### L 500.2500, L100.0100 ####[facility] [address] [place], [address] MCHC (RBC) [Mass/Vol] 32.0 g/dL Normal 32-36 [facility] Comment on above: Performed By: #### L 500.2500, L100.0100 ####[facility] [address] [place], [address] MCV (RBC) [Entitic vol] 86.6 fL Normal 80-[address] [facility] Comment on above: Performed By: #### L 500.2500, L100.0100 ####[facility] [address] [place], [address] Monocytes/100 WBC (Bld) 13.7 % High 0-[address] [facility] Comment on above: Performed By: #### L 500.2500, L100.0100 ####[facility] [address] [place], [address] Neutrophils/100 WBC (Bld) 60.6 % Normal 47-70 [facility] Comment on above: Performed By: #### L 500.2500, L100.0100 ####[facility] [address] [place], [address] Nucleated RBC (Bld) [#/Vol] 0 10*3/uL Normal 0-5 [facility] Comment on above: Performed By: #### L 500.2500, L100.0100 ####[facility] [address] [place], [address] Platelet mean volume (Bld) [Entitic vol] 12.2 fL High 6.2-12.0 [facility] Comment on above: Performed By: #### L 500.2500, L100.0100 ####[facility] [address] [place], [address] Platelets (Bld) [#/Vol] 214 10*3/uL Normal 150-450 [facility] Comment on above: Performed By: #### L 500.2500, L100.0100 ####[facility] [address] [place], [address] RBC (Bld) [#/Vol] 3.72 10*6/uL Low 4.6-6.2 [facility] Comment on above: Performed By: #### L 500.2500, L100.0100 ####[facility] [address] [place], [address] RDW SD 50.1 fl High 35.1-43.9 [facility] Comment on above: Performed By: #### L 500.2500, L100.0100 ####[facility] [address] [place], [address] WBC (Bld) [#/Vol] 4.2 10*3/uL Low 4.4-11.0 [facility] Comment on above: Performed By: #### L 500.2500, L100.0100 ####[facility] [address] [place], [address] Carbon dioxide, total [Moles /volume] in Central venous bloodOrdered By: Vivek Gates on 10-18-2024 CO2 [Moles/Vol] 25.9 mmol/L 21.0-32.0 [facility] Chloride assayOrdered By: Marlon Gates on 10-18-2024 Chloride [Moles/Vol] 102 mmol/L 98-108 [facility] Culture, Blood (WB)on 2024 CUB Blood cultures x2, f rom two different sites No growth in 5 days. Normal [facility] Comment on above: Performed By: #### M 200.1000 ####[facility] [address] [place], [place], [address] CUB Blood cultures x2, f rom two different sites No growth in 5 days. Normal [facility] Comment on above: Performed By: #### L 300.4310, L500.4050, L503.6005, L100.0100, L300.3900, M200.1000 ####[facility] [address] [place], [address] Eosinophil percentageOrdered By: Vivek Gates on 10-18-2024 Eosinophils/100 WBC (Bld) 1.7 % 0-5 [facility] Erythrocyte distribution wid th (RBC) [Ratio]Ordered By: Vivek Gates on 10-18-2024 Erythrocyte distribution width (RBC) [Entitic vol] 50.1 fL High 35.1-43.9 [facility] Erythrocyte distribution wid th ratioOrdered By: Vivek Gates on 10-18-2024 Erythrocyte distribution width (RBC) [Ratio] 15.9 % High 11.6-14.6 [facility] Erythrocyte distribution wid th standard deviationOrdered By: Vivek Gates on 10-18-2024 Erythrocyte distribution width (RBC) [Ratio] 50.1 fl High 35.1-43.9 [facility] Estimation of creatinine jass aranceOrdered By: Vivek Gates on 10-18-2024 Estimated Creatinine Clearance Calc 101.83 ml/min 50-250 [facility] GFR/1.73 sq M.predicted kayla g non-blacks MDRD (S/P/Bld) [Vol rate/Area]Ordered By: Vivek Gates on 10-18-2024 Estimated GFR (MDRD) Non-Af Amer 90 >60 [facility] Comment on above: mL/min/1.73m2 CKD-EP I Creatinine Equation (2020) Glomerular filtration rate ( GFR) estimation/1.73 sq m using serum, plasma, or whole bOrdered By: Vivek Gates on 10-18-2024 GFR/1.73 sq M.predicted among non-blacks MDRD (S/P/Bld) [Vol rate/Area] 90 mL/min/{1.73_m2} >60 [facility] Comment on above: mL/min/1.73m2 CKD-EP I Creatinine Equation (2020) [facility] deOrdered By: Vivek Gates on 10-18-2024 Bedside Glucose (Misc Panel) 146 mg/dL High 74-106 [facility] Comment on above: MANAGEMENT OF PATIEN T CARE PER NURSING PROTOCOL Glucose [Mass/Vol] 146 mg/dL High 74-106 [facility] Comment on above: MANAGEMENT OF PATIEN T CARE PER NURSING PROTOCOL Hematocrit Auto (Bld) [Volum e fraction]Ordered By: Vivek Gates on 10-18-2024 Hematocrit (Bld) [Volume fraction] 32.2 % Low 40-54 [facility] Hemoglobin measurementOrdere d By: Vivek Gates on 10-18-2024 Hemoglobin (Bld) [Mass/Vol] 10.3 g/dL Low 13.0-16.5 [facility] Immature granulocytes/100 WB C Auto (Bld)Ordered By: Vivek Gates on 10-18-2024 Immature granulocytes/100 WBC (Bld) 0.700 % 0.0-0.9 [facility] Comment on above: IG% - Immature Granu locytes (promyelocytes, myelocytes and metamyelocytes) > 1% indicates that a LEFT SHIFT is Present. Lymphocytes Auto (Unsp spec) [#/Vol]Ordered By: Vivek Gates on 10-18-2024 Lymphocytes (Bld) [#/Vol] 0.95 10*3/uL 0.83-4.51 [facility] Lymphocytes/100 WBC Auto (Un sp spec)Ordered By: Vivek Gates on 10-18-2024 Lymphocytes/100 WBC (Bld) 22.8 % 19-41 [facility] MCV (mean corpuscular volume ) determinationOrdered By: Vivek Gates on 10-18-2024 MCV (RBC) [Entitic vol] 86.6 fL 80-[address] [facility] Mean corpuscular hemoglobin (MCH) determinationOrdered By: Vivek Gates on 10-18-2024 MCH (RBC) [Entitic mass] 27.7 pg 27.0-32.0 [facility] Mean corpuscular hemoglobin concentration (MCHC) determinationOrdered By: Vivek Gates on 10-18-2024 MCHC (RBC) [Mass/Vol] 32.0 g/dL 32-36 [facility] Mean platelet volume determi nationOrdered By: Vivek Gates on 10-18-2024 Platelet mean volume (Bld) [Entitic vol] 12.2 fL High 6.2-12.0 [facility] Monocyte percentageOrdered B y: Vivek Gates on 10-18-2024 Monocytes/100 WBC (Bld) 13.7 % High 0-[address] [facility] Neutrophil percentageOrdered By: Vivek Gates on 10-18-2024 Neutrophils/100 WBC (Bld) 60.6 % 47-70 [facility] Nucleated red blood cell per centageOrdered By: Vivek Gates on 10-18-2024 Nucleated RBC/100 WBC (Bld) [Ratio] 0 % 0-5 [facility] Platelet countOrdered By: Marlon Gates on 10-18-2024 Platelets (Bld) [#/Vol] 214 10*3/uL 150-450 [facility] Potassium (Unsp spec) [Mass/ Vol]Ordered By: Vivek Gates on 10-18-2024 Potassium [Moles/Vol] 4.1 mmol/L 3.3-5.1 [facility] Potassium measurement (mass/ volume)Ordered By: Vivek Gates on 10-18-2024 Potassium (Unsp spec) [Mass/Vol] 4.1 mmol/L 3.3-5.1 [facility] RBC Auto (Bld) [#/Vol]Ordere d By: Vivek Gates on 10-18-2024 RBC (Bld) [#/Vol] 3.72 10*6/uL Low 4.6-6.2 [facility] Serum creatinine measurement (mass/volume)Ordered By: Vivek Gates on 10-18-2024 Creatinine [Mass/Vol] 0.92 mg/dL 0.70-1.20 [facility] Serum glucose measurement (m ass/volume)Ordered By: Vivek Gates on 10-18-2024 Glucose [Mass/Vol] 104 mg/dL High 70-99 [facility] Serum or plasma calcium isidro urement (mass/volume)Ordered By: Vivek Gates on 10-18-2024 Calcium [Mass/Vol] 9.0 mg/dL 7.6-11.0 [facility] Serum or plasma urea nitroge n measurement (mass/volume)Ordered By: Vivek Gates on 10-18-2024 Urea nitrogen [Mass/Vol] 14 mg/dL 4-19 [facility] Sodium levelOrdered By: Vivek Gates on 10-18-2024 Sodium [Moles/Vol] 136 mmol/L 133-145 [facility] Transesophageal echocardiogr am reportOrdered By: Dane Sun on 10-18-2024 Study report [facility] [address] [place] [address] Echo Transesophageal (FLORENCE) 10/18/24 0842 MR#: [id number] Acct: [id number] Name: JADON ALVAREZ Rep #:[id number] : 1955 69 From: Dane Iniguez Attending Dr: Dr. Vivek Gates, Status: ADM IN Ordering : Vivek Gates DO Date: Location: ND3 Sex: M C Admitted: 10/13/24 Reason For Study Reason For Study: bacteremia Medication FLORENCE probe 6VT-D (SN 770933) passed with minimal difficulty. No complications were noted. Cetacaine Topical [place] given X3 orally. Versed 1 mg given slow IVP. Fentanyl 50 mcg given slow IVP. Left Ventricle Normal LV size. The left ventricular ejection fraction is 60 %. No regional wallmotion abnormalities noted. Right Ventricle Normal RV size. Normal systolic function. Atria Bubble contrast study negative for right to left interatrial shunt. The left atrium is mildly enlarged. No thrombus is detected in the left atrial appendage. Normal right atrium. Mitral Valve Normal mitral valve. Tricuspid Valve Normal tricuspid valve. Aortic Valve Normal prosthetic aortic valve. Pulmonic Valve Normal pulmonic valve. Vessels Normal aortic root. The pulmonary artery is normal size. Pericardium No pericardial effusion. ECHO/Echo Transesophageal (FLORENCE) Interpretation Summary No cardiac source of emboli noted. There is no evidence of a mass or vegetation.This does not rule out endocarditis. Normal LV size. The left ventricular ejection fraction is 60 %. Normal prosthetic aortic valve. Ordering Physician: Vivek Gates Referring Physician: Kathleen Herzog Performed By: Carmella Gonsalez, LOC, RVT 10/18/24 1024 Date _ Dane Sun MD CC: Dr. Vivek Gates, DO; Kathleen Herzog MD ~ Date Dictated: 10/18/24 0842 Date Transcribed: 10/18/24 1024 Gang Knife Fish Chopper: Signed [facility] Work Phone: Trough vancomycin levelOrder ed By: Monika Garcias on 10-18-2024 Vancomycin trough [Mass/Vol] 14.2 ug/mL 5.0-15.0 [facility] Comment on above: Recommended goal tro ugh ranges are generally 10-15 mcg/ml for less severe/complicated infections such as cellulitis or UTI and 15-20 mcg/ml for more severe/complicated infections such as bacteremia/sepsis, osteomyelitis, pneumonia or meningitis. Goal trough ranges should take into account indication, patient-specific factors and organism KIARA.VANCOMYCIN STANDARED DRUG THERAPY TROUGH LEVEL: 5.0 - 15.0 mg/L VANCOMYCIN HIGH INTENSITY THERAPY TROUGH LEVEL: 15.0 - 20.0 mg/L High Intensity therapy recommended for serious lifethreatening infections include:- Qsnhjwtaxj-Qtraepqhqqlw-Hzzfugchl (Ventilator/Healtcare Associated)-Sepsis PLEASE CONTACT PHARMACY SERVICES (#[id number]) FOR INTERPRETATIONOF RESULTS. Vancomycin trough [Mass/Vol] Ordered By: Monika Garcias on 10-18-2024 Vancomycin Level Trough 14.2 ug/mL 5.0-15.0 [facility] Comment on above: Recommended goal tro ugh ranges are generally 10-15 mcg/ml for less severe/complicated infections such as cellulitis or UTI and 15-20 mcg/ml for more severe/complicated infections such as bacteremia/sepsis, osteomyelitis, pneumonia or meningitis. Goal trough ranges should take into account indication, patient-specific factors and organism KIARA.VANCOMYCIN STANDARED DRUG THERAPY TROUGH LEVEL: 5.0 - 15.0 mg/L VANCOMYCIN HIGH INTENSITY THERAPY TROUGH LEVEL: 15.0 - 20.0 mg/L High Intensity therapy recommended for serious lifethreatening infections include:- Kjueswkzcg-Fszzwmppkzzt-Wtjapxylk (Ventilator/Healtcare Associated)-Sepsis PLEASE CONTACT PHARMACY SERVICES (#8472) FOR INTERPRETATIONOF RESULTS. Vancomycin, Trough Levelon 0 10-18-2024 VANCO, TROUGH 14.2 ug/mL Normal 5.0-15.0 [facility] Comment on above: Order Comment: Comme nts: Trough to be drawn 30 mins prior to scheduled [id number] Result Comment: Xavier mmended goal trough ranges are generally 10-15 mcg/mlfor less severe/complicated infections such as cellulitisor UTI and 15-20 mcg/ml for more severe/complicatedinfections such as bacteremia/sepsis, osteomyelitis,pneumonia or meningitis. Goal trough ranges should takeinto account indication, patient-specific factors andorganism KIARA.VANCOMYCIN STANDARED DRUG THERAPY TROUGH LEVEL: 5.0 - 15.0 mg/LVANCOMYCIN HIGH INTENSITY THERAPY TROUGH LEVEL: 15.0 - 20.0 mg/LHigh Intensity therapy recommended for serious lifethreatening infections include:- Hqfimdayjj-Iarexldtqddf-Bczmtaiqn (Ventilator/Healtcare Associated)-SepsisPLEASE CONTACT PHARMACY SERVICES (#2585) FOR INTERPRETATIONOF RESULTS. Performed By: #### L 501.8820 ####[facility] [address] [place], [address] White blood cell (WBC) count Ordered By: Vivek Gates on 10-18-2024 WBC (Bld) [#/Vol] 4.2 10*3/uL Low 4.4-11.0 [facility] Basic Metabolic Profile (BMP )on 10-17-2024 BUN/CRE 17.7 RATIO Normal 10-20 [facility] Comment on above: Performed By: #### L 500.2500, L100.0100 ####[facility] [address] [place], [address] Calcium [Mass/Vol] 8.3 mg/dL Normal 7.6-11.0 [facility] Comment on above: Performed By: #### L 500.2500, L100.0100 ####[facility] [address] [place], [address] Chloride [Moles/Vol] 106 mmol/L Normal 98-108 [facility] Comment on above: Performed By: #### L 500.2500, L100.0100 ####[facility] [address] [place], [address] CO2 [Moles/Vol] 24.6 mmol/L Normal 21.0-32.0 [facility] Comment on above: Performed By: #### L 500.2500, L100.0100 ####[facility] [address] [place], [address] Creatinine [Mass/Vol] 0.88 mg/dL Normal 0.70-1.20 [facility] Comment on above: Performed By: #### L 500.2500, L100.0100 ####[facility] [address] [place], [address] ECRCL 106.46 ml/min Normal 50-250 [facility] Comment on above: Performed By: #### L 500.2500, L100.0100 ####[facility] [address] [place], [address] GAP 9 Normal 5-15 [facility] Comment on above: Performed By: #### L 500.2500, L100.0100 ####[facility] [address] [place], [address] GFR/1.73 sq M.predicted among non-blacks MDRD (S/P/Bld) [Vol rate/Area] 93 mL/min/{1.73_m2} Normal >60 [facility] Comment on above: Result Comment: mL/m in/1.73m2 CKD-EPI Creatinine Equation (2020) Performed By: #### L 500.2500, L100.0100 ####[facility] [address] [place], [address] Glucose [Mass/Vol] 101 mg/dL High 70-99 [facility] Comment on above: Performed By: #### L 500.2500, L100.0100 ####[facility] [address] [place], [address] Potassium [Moles/Vol] 3.9 mmol/L Normal 3.3-5.1 [facility] Comment on above: Performed By: #### L 500.2500, L100.0100 ####[facility] [address] [place], [address] Sodium [Moles/Vol] 139 mmol/L Normal 133-145 [facility] Comment on above: Performed By: #### L 500.2500, L100.0100 ####[facility] [address] [place], [address] Urea nitrogen [Mass/Vol] 16 mg/dL Normal 4-19 [facility] Comment on above: Performed By: #### L 500.2500, L100.0100 ####[facility] [address] [place], [address] Bedside Glucoseon 10-17-2024 FINGERSTICK GLU 119 mg/dL High 74-106 [facility] Comment on above: Result Comment: PETER GEMENT OF PATIENT CARE PER NURSING PROTOCOL Performed By: #### L 501.080 ####[facility] [address] [place], [address] FINGERSTICK GLU 160 mg/dL High 74-106 [facility] Comment on above: Result Comment: PETER GEMENT OF PATIENT CARE PER NURSING PROTOCOL Performed By: #### L 501.080 ####[facility] [address] [place], [address] FINGERSTICK GLU 133 mg/dL High 74-106 [facility] Comment on above: Result Comment: PETER GEMENT OF PATIENT CARE PER NURSING PROTOCOL Performed By: #### L 501.080 ####[facility] [address] [place], [address] FINGERSTICK GLU 108 mg/dL High 74-106 [facility] Comment on above: Result Comment: PETER GEMENT OF PATIENT CARE PER NURSING PROTOCOL Performed By: #### L 501.080 ####[facility] [address] [place], [address] CBC W/Diff, Automatedon 04-0 Absolute Lymph 1.28 X10 3/uL Normal 0.83-4.51 [facility] Comment on above: Performed By: #### L 500.2500, L100.0100 ####[facility] [address] [place], [address] Absolute Neut 2.0 X10 3/uL Normal 2.0-7.7 [facility] Comment on above: Performed By: #### L 500.2500, L100.0100 ####[facility] [address] [place], [address] Basophils/100 WBC (Bld) 0.5 % Normal 0-[address] [facility] Comment on above: Performed By: #### L 500.2500, L100.0100 ####[facility] [address] [place], [address] Eosinophils/100 WBC (Bld) 2.7 % Normal 0-5 [facility] Comment on above: Performed By: #### L 500.2500, L100.0100 ####[facility] [address] [place], [address] Erythrocyte distribution width (RBC) [Ratio] 16.1 % High 11.6-14.6 [facility] Comment on above: Performed By: #### L 500.2500, L100.0100 ####[facility] [address] [place], [address] Hematocrit (Bld) [Volume fraction] 30.1 % Low 40-54 [facility] Comment on above: Performed By: #### L 500.2500, L100.0100 ####[facility] [address] [place], [address] Hemoglobin (Bld) [Mass/Vol] 9.6 g/dL Low 13.0-16.5 [facility] Comment on above: Performed By: #### L 500.2500, L100.0100 ####[facility] [address] [place], [address] IG% 1.200 High 0.0-0.9 [facility] Comment on above: Result Comment: IG% - Immature Granulocytes (promyelocytes, myelocytes andmetamyelocytes) > 1% indicates that a LEFT SHIFT is Present. Performed By: #### L 500.2500, L100.0100 ####[facility] [address] [place], [address] Lymphocytes/100 WBC (Bld) 31.1 % Normal 19-41 [facility] Comment on above: Performed By: #### L 500.2500, L100.0100 ####[facility] [address] [place], [address] MCH (RBC) [Entitic mass] 27.4 pg Normal 27.0-32.0 [facility] Comment on above: Performed By: #### L 500.2500, L100.0100 ####[facility] [address] [place], [address] MCHC (RBC) [Mass/Vol] 31.9 g/dL Low 32-36 [facility] Comment on above: Performed By: #### L 500.2500, L100.0100 ####[facility] [address] [place], [address] MCV (RBC) [Entitic vol] 86.0 fL Normal 80-94 [facility] Comment on above: Performed By: #### L 500.2500, L100.0100 ####[facility] [address] [place], [address] Monocytes/100 WBC (Bld) 16.1 % High 0-[address] [facility] Comment on above: Performed By: #### L 500.2500, L100.0100 ####[facility] [address] [place], [address] Neutrophils/100 WBC (Bld) 48.4 % Normal 47-70 [facility] Comment on above: Performed By: #### L 500.2500, L100.0100 ####[facility] [address] [place], [address] Nucleated RBC (Bld) [#/Vol] 0 10*3/uL Normal 0-5 [facility] Comment on above: Performed By: #### L 500.2500, L100.0100 ####[facility] [address] [place], [address] Platelet mean volume (Bld) [Entitic vol] 12.3 fL High 6.2-12.0 [facility] Comment on above: Performed By: #### L 500.2500, L100.0100 ####[facility] [address] [place], [address] Platelets (Bld) [#/Vol] 212 10*3/uL Normal 150-450 [facility] Comment on above: Performed By: #### L 500.2500, L100.0100 ####[facility] [address] [place], [address] RBC (Bld) [#/Vol] 3.50 10*6/uL Low 4.6-6.2 [facility] Comment on above: Performed By: #### L 500.2500, L100.0100 ####[facility] [address] [place], [address] RDW SD 50.5 fl High 35.1-43.9 [facility] Comment on above: Performed By: #### L 500.2500, L100.0100 ####[facility] [address] [place], [address] WBC (Bld) [#/Vol] 4.1 10*3/uL Low 4.4-11.0 [facility] Comment on above: Performed By: #### L 500.2500, L100.0100 ####[facility] [address] [place], [address] Echo Transesophageal (FLORENCE)on 10-17-2024 Echo Transesophageal (FLORENCE) Normal [facility] Vancomycin, Random Levelon 0 10-17-2024 VANCO, RANDOM 10.3 ug/mL Normal 0.0-15.0 [facility] Comment on above: Result Comment: VANC OMYCIN STANDARD DRUG THERAPY: CRITICAL VALUE IS > 15.0 mg/LVANCOMYCIN HIGH INTENSITY THERAPY: CRITICAL VALUE IS > 20.0 mg/LPLEASE CONTACT PHARMACY SERVICES (#6805) FOR INTERPRETATIONOF RESULTS. THIS RESULT DOES NOT REPRESENT A PEAK OR TROUGHLEVEL FOR THIS DRUG. Performed By: #### L 501.8850 ####[facility] [address] [place], [address] Arterial study reportOrdered By: Vivek Cárdenas on 10-16-2024 Noninvasive arteriosclerosis study report [facility] [address] [place] [address] Lower Ext Art Exam w/o Exercis 10/16/24 1506 MR#: [id number] Acct: [id number] Name: JADON ALVAREZ Rep #:[id number] : 1955 69 From: Vivek Iniguez Attending Dr: Dr. Vivek Gates, DO Status: ADM IN Ordering Dr: Shayna Montoya DPJuan Daniel Date: 10/15/24 Location: MS3 Sex: M C Admitted: 10/13/24 Reason For Study Reason For Study: PVD Procedure A bilateral lower extremity continuous wave Doppler with analog waveform analysis,segmental pressures,and ankle brachial indexes without exercise. Left Segmental Pressures Left posterior tibial artery = 153mmHg. Left dorsalis pedis artery = 152mmHg. Left digit = 118 mmHg. Right Segmental Pressures Right brachial= 128mmHg. Right posterior tibial artery = 175mmHg. Right dorsalispedis artery = 160mmHg. Right digit = 119 mmHg. Indices The right ankle brachial index by the posterior tibial artery is 1.37. The rightankle brachial index by the dorsalis pedis is 1.25. The right digital-brachial index is 0.93. The left ankle brachialindex by the posterior tibial artery is 1.20. The left ankle brachial index by the dorsalis pedis is 1.19. The left digital-brachial index is 0.92. VL/Lower Ext Art Exam w/o Exercis Interpretation Summary Right PERICO 1.37, normal. TBI and Doppler/PVR waveforms of the right leg normal atrest. Left PERICO 1.2, normal. TBI and Doppler/PVR waveforms of the left leg normal at rest. Ordering Physician: Shayna Montoya Referring Physician: Kathleen Herzog Performed By: Rasheed Norman, T 10/16/241940 Date _ Vivek Cárdenas MD CC: DPM Dr. Shayna Montoya; Dr. Vivek Gates DO; Kathleen Herzog MD ~ Date Dictated: 10/16/246 Date Transcribed: 10/16/241940 Gang Knife Fish Chopper: Signed [facility] Work Phone: Basic Metabolic Profile (BMP )on 10-16-2024 BUN/CRE 20.0 RATIO Normal 10-20 [facility] Comment on above: Performed By: #### L 100.0100, L500.2500 ####[facility] [address] [place], [address] Calcium [Mass/Vol] 8.3 mg/dL Normal 7.6-11.0 [facility] Comment on above: Performed By: #### L 100.0100, L500.2500 ####[facility] [address] [place], [address] Chloride [Moles/Vol] 108 mmol/L Normal 98-108 [facility] Comment on above: Performed By: #### L 100.0100, L500.2500 ####[facility] [address] [place], [address] CO2 [Moles/Vol] 26.2 mmol/L Normal 21.0-32.0 [facility] Comment on above: Performed By: #### L 100.0100, L500.2500 ####[facility] [address] [place], [address] Creatinine [Mass/Vol] 0.98 mg/dL Normal 0.70-1.20 [facility] Comment on above: Performed By: #### L 100.0100, L500.2500 ####[facility] [address] [place], [address] ECRCL 95.59 ml/min Normal 50-250 [facility] Comment on above: Performed By: #### L 100.0100, L500.2500 ####[facility] [address] [place], [address] GAP 5 Normal 5-15 [facility] Comment on above: Performed By: #### L 100.0100, L500.2500 ####[facility] [address] [place], [address] GFR/1.73 sq M.predicted among non-blacks MDRD (S/P/Bld) [Vol rate/Area] 84 mL/min/{1.73_m2} Normal >60 [facility] Comment on above: Result Comment: mL/m in/1.73m2 CKD-EPI Creatinine Equation (2020) Performed By: #### L 100.0100, L500.2500 ####[facility] [address] [place], [address] Glucose [Mass/Vol] 109 mg/dL High 70-99 [facility] Comment on above: Performed By: #### L 100.0100, L500.2500 ####[facility] [address] [place], [address] Potassium [Moles/Vol] 4.0 mmol/L Normal 3.3-5.1 [facility] Comment on above: Performed By: #### L 100.0100, L500.2500 ####[facility] [address] [place], [address] Sodium [Moles/Vol] 140 mmol/L Normal 133-145 [facility] Comment on above: Performed By: #### L 100.0100, L500.2500 ####[facility] [address] [place], [address] Urea nitrogen [Mass/Vol] 20 mg/dL High 4-19 [facility] Comment on above: Performed By: #### L 100.0100, L500.2500 ####[facility] [address] [place], [address] Bedside Glucoseon 10-16-2024 FINGERSTICK GLU 150 mg/dL High 74-106 [facility] Comment on above: Result Comment: PETER GEMENT OF PATIENT CARE PER NURSING PROTOCOL Performed By: #### L 501.080 ####[facility] [address] [place], [address] FINGERSTICK GLU 192 mg/dL High 74-106 [facility] Comment on above: Result Comment: PETER GEMENT OF PATIENT CARE PER NURSING PROTOCOL Performed By: #### L 501.080 ####[facility] [address] [place], [address] FINGERSTICK GLU 93 mg/dL Normal 74-106 [facility] Comment on above: Result Comment: PETER GEMENT OF PATIENT CARE PER NURSING PROTOCOL Performed By: #### L 501.080 ####[facility] [address] [place], [address] FINGERSTICK GLU 103 mg/dL Normal 74-106 [facility] Comment on above: Result Comment: PETER GEMENT OF PATIENT CARE PER NURSING PROTOCOL Performed By: #### L 501.080 ####[facility] [address] [place], [address] Blood cultureOrdered By: Marii Gates on 10-16-2024 Bacteria identified Cx Nom (Bld) No growth in 5 days. [facility] Bacteria identified Cx Nom (Bld) No growth in 5 days. [facility] Blood manual differential co mment interpretation (narrative result)Ordered By: Colby May on 10-16-2024 Manual differential comment Kenny (Bld) [Interp] SCANNED [facility] Comment on above: AUTO DIFF OK CBC W/Diff, Automatedon SMEAR COMMENT SCANNED Normal [facility] Comment on above: Result Comment: AUTO DIFF OK Performed By: #### L 100.0100, L500.2500 ####[facility] [address] [place], [place], [id number] Consultation - Infectious Dx on 10-16-2024 Consultation - Infectious Dx Normal [facility] Culture, Blood (WB)on 2024 CUB Normal [facility] Comment on above: Performed By: #### M 100.636, M200.1000 ####[facility] [address] [place], [place], [address] Manual differential comment Kenny (Bld) [Interp]Ordered By: Colby May on 10-16-2024 Differential Comment SCANNED [facility] Comment on above: AUTO DIFF OK Serum or plasma vancomycin m easurement (mass/volume)Ordered By: Monika Garcias on 10-16-2024 Vancomycin [Mass/Vol] 10.3 ug/mL 0.0-15.0 [facility] Comment on above: VANCOMYCIN STANDARD DRUG THERAPY: CRITICAL VALUE IS > 15.0 mg/L VANCOMYCIN HIGH INTENSITY THERAPY: CRITICAL VALUE IS > 20.0 mg/L PLEASE CONTACT PHARMACY SERVICES (#1023) FOR INTERPRETATIONOF RESULTS. THIS RESULT DOES NOT REPRESENT A PEAK OR TROUGHLEVEL FOR THIS DRUG. Vancomycin [Mass/Vol]Ordered By: Monika Garcias on 10-16-2024 Random Vancomycin Level 10.3 ug/mL 0.0-15.0 [facility] Comment on above: VANCOMYCIN STANDARD DRUG THERAPY: CRITICAL VALUE IS > 15.0 mg/L VANCOMYCIN HIGH INTENSITY THERAPY: CRITICAL VALUE IS > 20.0 mg/L PLEASE CONTACT PHARMACY SERVICES (#4624) FOR INTERPRETATIONOF RESULTS. THIS RESULT DOES NOT REPRESENT A PEAK OR TROUGHLEVEL FOR THIS DRUG. Vancomycin, Trough Levelon 0 10-16-2024 VANCO, TROUGH 24.2 ug/mL High 5.0-15.0 [facility] Comment on above: Order Comment: Comme nts: Trough to be drawn 30 mins prior to scheduled [id number] Result Comment: Xavier mmended goal trough ranges are generally 10-15 mcg/mlfor less severe/complicated infections such as cellulitisor UTI and 15-20 mcg/ml for more severe/complicatedinfections such as bacteremia/sepsis, osteomyelitis,pneumonia or meningitis. Goal trough ranges should takeinto account indication, patient-specific factors andorganism KIARA.VANCOMYCIN STANDARED DRUG THERAPY TROUGH LEVEL: 5.0 - 15.0 mg/LVANCOMYCIN HIGH INTENSITY THERAPY TROUGH LEVEL: 15.0 - 20.0 mg/LHigh Intensity therapy recommended for serious lifethreatening infections include:- Eozmvbygig-Naglapamobhs-Qwafligno (Ventilator/Healtcare Associated)-SepsisPLEASE CONTACT PHARMACY SERVICES (#1075) FOR INTERPRETATIONOF RESULTS. Performed By: #### L 501.8820 ####[facility] [address] [place], [address] Venous duplex ultrasound rep ortOrdered By: Vivek Cárdenas on 10-16-2024 US Vein [facility] [address] [place] [address] Venous Duplex US - Jorden Extrem 10/16/24 0821 MR#: [id number] Acct: [id number] Name: JADON ALVAREZ Rep #:[id number] : 1955 69 From: Vivke Iniguez Attending Dr: Dr. Vivek Gates, Status: ADM IN Ordering Dr: Shayna Montoya DPM Date: 10/15/24 Location: [facility] Sex: M C Admitted: 10/13/24 Reason For Study Reason For Study: BIlateral leg pain RIGHT LEFT GSV is normal. GSV is normal. CFV is compressible, spontaneous, phasic, competent CFV is compressible, spontaneous, phasic, competent, and demonstrates normal augmentation. and demonstrates normal augmentation. FV is compressible, spontaneous, phasic, competent FV is compressible, spontaneous, phasic, competent and demonstrates normal augmentation. and demonstrates normal augmentation. POP V is compressible, spontaneous, phasic, competent FV mid and distal are partially compessible with and demonstrates normal augmentation. venous flow noted. T/P Trunk is compressible. PopV is partaially compressible. Normal venous flow PTV is compressible. noted. RT PerV is compressible. T/P trunk is partially compressible. Procedure PTV is compressible. This is a venous duplex using B-mode, color flow and LT PerV is compressible. spectral Doppler. Exam performed portable in patient room. Bilateral calf veins only visualized at distal calf due to bandages. Technically difficult to visualize the peroneal veins. A preliminary report was called and/or faxed to [facility]. VL/Venous Duplex US - Jorden Extrem Interpretation Summary Chronic deep vein thrombosis noted left femoral vein, popliteal vein, tibioperoneal trunk vein Deep veins of the right lower extremity are patent and compressible segmentally.There is no evidence of right lower extremity deep vein thrombosis. The bilateral great saphenous veins appear patent and compressible segmentally. Ordering Physician: Shayna Montoya Referring Physician: Saul Wang Performed By: Sheri Jones Almaz 10/16/241915 Date _ Vivek Cárdenas MD CC: DPJuan Daniel Montoya; Dr. 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, [address] Basic Metabolic Profile (BMP )on 10-15-2024 BUN/CRE 19.7 RATIO Normal 10-20 [facility] Comment on above: Performed By: #### L 500.2500, L100.0100 ####[facility] [address] [place], [address] Calcium [Mass/Vol] 8.3 mg/dL Normal 7.6-11.0 [facility] Comment on above: Performed By: #### L 500.2500, L100.0100 ####[facility] [address] [place], [address] Chloride [Moles/Vol] 107 mmol/L Normal 98-108 [facility] Comment on above: Performed By: #### L 500.2500, L100.0100 ####[facility] [address] [place], [address] CO2 [Moles/Vol] 25.0 mmol/L Normal 21.0-32.0 [facility] Comment on above: Performed By: #### L 500.2500, L100.0100 ####[facility] [address] [place], [address] Creatinine [Mass/Vol] 0.94 mg/dL Normal 0.70-1.20 [facility] Comment on above: Performed By: #### L 500.2500, L100.0100 ####[facility] [address] [place], [address] ECRCL 99.66 ml/min Normal 50-250 [facility] Comment on above: Performed By: #### L 500.2500, L100.0100 ####[facility] [address] [place], [address] GAP 8 Normal 5-15 [facility] Comment on above: Performed By: #### L 500.2500, L100.0100 ####[facility] [address] [place], [address] GFR/1.73 sq M.predicted among non-blacks MDRD (S/P/Bld) [Vol rate/Area] 87 mL/min/{1.73_m2} Normal >60 [facility] Comment on above: Result Comment: mL/m in/1.73m2 CKD-EPI Creatinine Equation (2020) Performed By: #### L 500.2500, L100.0100 ####[facility] [address] [place], [address] Glucose [Mass/Vol] 106 mg/dL High 70-99 [facility] Comment on above: Performed By: #### L 500.2500, L100.0100 ####[facility] [address] [place], [address] Potassium [Moles/Vol] 3.9 mmol/L Normal 3.3-5.1 [facility] Comment on above: Performed By: #### L 500.2500, L100.0100 ####[facility] [address] [place], [address] Sodium [Moles/Vol] 140 mmol/L Normal 133-145 [facility] Comment on above: Performed By: #### L 500.2500, L100.0100 ####[facility] [address] [place], [address] Urea nitrogen [Mass/Vol] 19 mg/dL Normal 4-19 [facility] Comment on above: Performed By: #### L 500.2500, L100.0100 ####[facility] [address] [place], [address] Bedside Glucoseon 04-06-2025 FINGERSTICK GLU 138 mg/dL High 74-106 [facility] Comment on above: Result Comment: PETER GEMENT OF PATIENT CARE PER NURSING PROTOCOL Performed By: #### L 501.080 ####[facility] [address] [place], [address] FINGERSTICK GLU 170 mg/dL High 74-106 [facility] Comment on above: Result Comment: PETER GEMENT OF PATIENT CARE PER NURSING PROTOCOL Performed By: #### L 501.080 ####[facility] [address] [place], [address] FINGERSTICK GLU 118 mg/dL High 74-106 [facility] Comment on above: Result Comment: PETER GEMENT OF PATIENT CARE PER NURSING PROTOCOL Performed By: #### L 501.080 ####[facility] [address] [place], [address] FINGERSTICK GLU 113 mg/dL High 74-106 [facility] Comment on above: Result Comment: PETER GEMENT OF PATIENT CARE PER NURSING PROTOCOL Performed By: #### L 501.080 ####[facility] [address] [place], [address] Blood polychromasia detectio n by light microscopyOrdered By: Colby May on 10-15-2024 Polychromasia LM Ql (Bld) 1+ [facility] CBC W/Diff, Automatedon 04-0 PLT EST SLT DEC Normal ADEQ [facility] Comment on above: Performed By: #### L 500.2500, L100.0100 ####[facility] [address] [place], [address] POLYCHROMASIA 1+ Normal [facility] Comment on above: Performed By: #### L 500.2500, L100.0100 ####[facility] [address] [place], [address] Gram Stainon 10-15-2024 GS List Antibiotics Las t 48 Hours? Vancomycin Right leg wound Gram Stain No Epithelial cells 1+ Gram positive cocci Normal [facility] Comment on above: Performed By: #### M 100.2000, M100.3000 ####[facility] [address] [place], [address] Lower Ext Art Exam w/o Exerc raul 10-15-2024 Lower Ext Art Exam w/o Exercis Normal [facility] Platelet estimateOrdered By: Colby May on 10-15-2024 Platelets LM Ql (Bld) SLT DEC ADEQ [facility] Platelets LM Ql (Bld)Ordered By: Colby May on 10-15-2024 Platelet Estimate SL[facility] Polychromasia LM Ql (Bld)Ord ered By: Colby May on 10-15-2024 Polychromasia 1+ [facility] Venous Duplex US - Jorden Extre mon 10-15-2024 Venous Duplex US - Jorden Extrem Normal [facility] Basic Metabolic Profile (BMP )on 10-14-2024 BUN/CRE 22.5 RATIO High 10-20 [facility] Comment on above: Performed By: #### L 500.2500, L100.0100 ####[facility] [address] [place], [address] Calcium [Mass/Vol] 8.3 mg/dL Normal 7.6-11.0 [facility] Comment on above: Performed By: #### L 500.2500, L100.0100 ####[facility] [address] [place], [address] Chloride [Moles/Vol] 108 mmol/L Normal 98-108 [facility] Comment on above: Performed By: #### L 500.2500, L100.0100 ####[facility] [address] [place], [address] CO2 [Moles/Vol] 21.8 mmol/L Normal 21.0-32.0 [facility] Comment on above: Performed By: #### L 500.2500, L100.0100 ####[facility] [address] [place], [address] Creatinine [Mass/Vol] 0.92 mg/dL Normal 0.70-1.20 [facility] Comment on above: Performed By: #### L 500.2500, L100.0100 ####[facility] [address] [place], [address] ECRCL 101.83 ml/min Normal 50-250 [facility] Comment on above: Performed By: #### L 500.2500, L100.0100 ####[facility] [address] [place], [address] GAP 10 Normal 5-15 [facility] Comment on above: Performed By: #### L 500.2500, L100.0100 ####[facility] [address] [place], [address] GFR/1.73 sq M.predicted among non-blacks MDRD (S/P/Bld) [Vol rate/Area] 90 mL/min/{1.73_m2} Normal >60 [facility] Comment on above: Result Comment: mL/m in/1.73m2 CKD-EPI Creatinine Equation (2020) Performed By: #### L 500.2500, L100.0100 ####[facility] [address] [place], [address] Glucose [Mass/Vol] 96 mg/dL Normal 70-99 [facility] Comment on above: Performed By: #### L 500.2500, L100.0100 ####[facility] [address] [place], [address] Potassium [Moles/Vol] 3.8 mmol/L Normal 3.3-5.1 [facility] Comment on above: Performed By: #### L 500.2500, L100.0100 ####[facility] [address] [place], [address] Sodium [Moles/Vol] 139 mmol/L Normal 133-145 [facility] Comment on above: Performed By: #### L 500.2500, L100.0100 ####[facility] [address] [place], [address] Urea nitrogen [Mass/Vol] 21 mg/dL High 4-19 [facility] Comment on above: Performed By: #### L 500.2500, L100.0100 ####[facility] [address] [place], [address] BUN Normal 4-19 [facility] Comment on above: Result Comment: Canc elled via OM: Order cancelled - Patient discharged Performed By: #### L 100.0100, L500.2500 ####[facility] [address] [place], [address] BUN/CRE Normal 10-20 [facility] Comment on above: Result Comment: Canc elled via OM: Order cancelled - Patient discharged Performed By: #### L 100.0100, L500.2500 ####[facility] [address] [place], [address] Calcium Normal 7.6-11.0 [facility] Comment on above: Result Comment: Canc elled via OM: Order cancelled - Patient discharged Performed By: #### L 100.0100, L500.2500 ####[facility] [address] [place], [address] CL Normal 98-108 [facility] Comment on above: Result Comment: Canc elled via OM: Order cancelled - Patient discharged Performed By: #### L 100.0100, L500.2500 ####[facility] [address] [place], [address] CO2 Normal 21.0-32.0 [facility] Comment on above: Result Comment: Canc elled via OM: Order cancelled - Patient discharged Performed By: #### L 100.0100, L500.2500 ####[facility] [address] [place], [address] CREAT,SERUM Normal 0.70-1.20 [facility] Comment on above: Result Comment: Canc elled via OM: Order cancelled - Patient discharged Performed By: #### L 100.0100, L500.2500 ####[facility] [address] [place], [address] eGFR Normal >60 [facility] Comment on above: Result Comment: Canc elled via OM: Order cancelled - Patient discharged Performed By: #### L 100.0100, L500.2500 ####[facility] [address] [place], [address] GAP Normal 5-15 [facility] Comment on above: Result Comment: Canc elled via OM: Order cancelled - Patient discharged Performed By: #### L 100.0100, L500.2500 ####[facility] [address] [place], [address] GLU Normal 70-99 [facility] Comment on above: Result Comment: Canc elled via OM: Order cancelled - Patient discharged Performed By: #### L 100.0100, L500.2500 ####[facility] [address] [place], [address] Potassium Normal 3.3-5.1 [facility] Comment on above: Result Comment: Canc elled via OM: Order cancelled - Patient discharged Performed By: #### L 100.0100, L500.2500 ####[facility] [address] [place], [address] Basic Metabolic Profile (BMP) Normal 133-145 [facility] Comment on above: Result Comment: Canc elled via OM: Order cancelled - Patient discharged Performed By: #### L 100.0100, L500.2500 ####[facility] [address] [place], [address] Bedside Glucoseon 10-14-2024 FINGERSTICK GLU 150 mg/dL High 74-106 [facility] Comment on above: Result Comment: PETER GEMENT OF PATIENT CARE PER NURSING PROTOCOL Performed By: #### L 501.080 ####[facility] [address] [place], [address] FINGERSTICK GLU 126 mg/dL High 74-106 [facility] Comment on above: Result Comment: PETER GEMENT OF PATIENT CARE PER NURSING PROTOCOL Performed By: #### L 501.080 ####[facility] [address] [place], [address] FINGERSTICK GLU 93 mg/dL Normal 74-106 [facility] Comment on above: Result Comment: PETER GEMENT OF PATIENT CARE PER NURSING PROTOCOL Performed By: #### L 501.080 ####[facility] [address] [place], [address] CBC W/Diff, Automatedon 04-0 PLT EST SLT Normal ADEQ [facility] Comment on above: Performed By: #### L 500.2500, L100.0100 ####[facility] [address] [place], [address] PLT MORPH LARGE Normal [facility] Comment on above: Performed By: #### L 500.2500, L100.0100 ####[facility] [address] [place], [address] Absolute Neut Normal 2.0-7.7 [facility] Comment on above: Result Comment: Canc elled via OM: Order cancelled - Patient discharged Performed By: #### L 100.0100, L500.2500 ####[facility] [address] [place], [address] HCT Normal 40-54 [facility] Comment on above: Result Comment: Canc elled via OM: Order cancelled - Patient discharged Performed By: #### L 100.0100, L500.2500 ####[facility] [address] [place], [address] HGB Normal 13.0-16.5 [facility] Comment on above: Result Comment: Canc elled via OM: Order cancelled - Patient discharged Performed By: #### L 100.0100, L500.2500 ####[facility] [address] [place], [address] MCH Normal 27.0-32.0 [facility] Comment on above: Result Comment: Canc elled via OM: Order cancelled - Patient discharged Performed By: #### L 100.0100, L500.2500 ####[facility] [address] [place], [address] MCHC Normal 32-36 [facility] Comment on above: Result Comment: Canc elled via OM: Order cancelled - Patient discharged Performed By: #### L 100.0100, L500.2500 ####[facility] [address] [place], [address] MCV Normal 80-94 [facility] Comment on above: Result Comment: Canc elled via OM: Order cancelled - Patient discharged Performed By: #### L 100.0100, L500.2500 ####[facility] [address] [place], [address] NEUT% Normal 47-70 [facility] Comment on above: Result Comment: Canc elled via OM: Order cancelled - Patient discharged Performed By: #### L 100.0100, L500.2500 ####[facility] [address] [place], [address] PLT Normal 150-450 [facility] Comment on above: Result Comment: Canc elled via OM: Order cancelled - Patient discharged Performed By: #### L 100.0100, L500.2500 ####[facility] [address] [place], [address] RBC Normal 4.6-6.2 [facility] Comment on above: Result Comment: Canc elled via OM: Order cancelled - Patient discharged Performed By: #### L 100.0100, L500.2500 ####[facility] [address] [place], [address] RDW CV Normal 11.6-14.6 [facility] Comment on above: Result Comment: Canc elled via OM: Order cancelled - Patient discharged Performed By: #### L 100.0100, L500.2500 ####[facility] [address] [place], [address] RDW SD Normal 35.1-43.9 [facility] Comment on above: Result Comment: Canc elled via OM: Order cancelled - Patient discharged Performed By: #### L 100.0100, L500.2500 ####[facility] [address] [place], [address] WBC Normal 4.4-11.0 [facility] Comment on above: Result Comment: Canc elled via OM: Order cancelled - Patient discharged Performed By: #### L 100.0100, L500.2500 ####[facility] [address] [place], [address] Echocardiogram study reportO rdered By: Suraj Quinn on 10-14-2024 Study report [facility] [address] [place] [address] Echo Complete W/ Contrast 10/14/24 0914 MR#: [id number] Acct: [id number] Name: JADON ALVAREZ Rep #:[id number] : 1955 69 From: Suraj laguerre MD Attending Dr: Dr. Colby May MD Status: ADM IN Ordering Dr: Monika Garcias MD Date: 10/13/24 Location: [facility] Sex: M C Admitted: 10/13/24 Reason For Study Reason For Study: CAD/ASHD Procedure This was a 2D Doppler, Color Flow transthoracic echocardiogram. The study was technically difficult. Contrast injection was performed. Exam performed portable in patient room. Left Ventricle Normal LV size. The estimated ejection fraction is 70 %. No evidence for diastolic dysfunction. No regional wall motion abnormalities noted. Right Ventricle Normal RV size. Normal systolic function. Atria The left and right atria are normal. No doppler evidence for ASD. Mitral Valve There is no mitral valve stenosis. No mitral valve insufficiency. Tricuspid Valve There is no tricuspid stenosis. Trivial tricuspid valve insufficiency. Unable toestimate RV systolic pressure due to insufficient tricuspid regurgitant envelope. Aortic Valve Velocity across the bioprosthetic aortic valve appears to be increased suggestive of stenosis. Trivial aortic valve insufficiency. Bioprosthetic aortic valve. Pulmonic Valve There is no pulmonic valvular stenosis. No pulmonic valve insufficiency. Great Vessels Normal sized aortic root. Pericardium/Pleural No pericardial effusion. Medication Diluted definity 2ml given slow IV push to enhance endocardial definition. MMode/2D Measurements & Calculations LVIDd: 5.5 cm IVSd: 1.3 cm LVOT diam: 2.0 cm LVIDs: 3.5 cm LVPWd: 1.6 cm FS: 37.4 % LVOT area: 3.2 cm2 LAV(MOD-bp): 70.9 ml LVAd ap4: 50.2 cm2 SV(MOD-sp4): 126.6 ml LAV(MOD-bp) Indexed: 29.0 ml/m2 LVLd ap4: 10.5 cm SI(MOD-sp4): 51.8 ml/m2 LAV(MOD-sp2): 71.6 ml EDV(MOD-sp4): 201.9 ml LAV(MOD-sp4): 67.4 ml EDV(sp4-el): 204.5 ml LVAs ap4: 29.0 cm2 LVLs ap4: 9.0 cm ESV(MOD-sp4): 75.3 ml ESV(sp4-el): 79.1 ml EF(MOD-sp4): 62.7 % EF(sp4-el): 61.3 % SV(sp4-el): 125.4 ml LA A4 area: 20.5 cm2 RA A4 area: 13.6 cm2 Time Measurements MV dec time: 0.24 sec Doppler Measurements & Calculations MV E max kathryn: 107.4 cm/sec Lat Peak E' Kathryn: 17.0 cm/sec Med Peak E' Kathryn: 10.0 cm/sec MV A max kathryn: 100.5 cm/sec E/E' lat: 6.3 E/E' med: 10.7 MV E/A: 1.1 MV V2 max: 104.6 cm/sec Ao V2 max: 454.0 cm/sec MV max P.4 mmHg MV dec slope: 441.6 cm/sec2 Ao max P.5 mmHg MV V2 mean: 64.2 cm/sec Ao V2 mean: 309.6 cm/sec MV mean P.9 mmHg Ao mean P.8 mmHg MV V2 VTI: 39.2 cm Ao V2 VTI: 104.7 cm PA V2 max: 125.2 cm/sec PA V2 mean: 80.6 cm/sec ECHO/Echo Complete W/ Contrast Interpretation Summary The estimated ejection fraction is 70 %. No evidence for diastolic dysfunction. Velocity across the bioprosthetic aortic valve appears to be increased suggestive of stenosis. Trivial aortic valve insufficiency. Ordering Physician: Monika Garcias Referring Physician: SAUL WANG Performed By: Maite Smith RCS 10/14/24 1348 Date _ Suraj Quinn MD CC: Dr. Monika Garcias MD; Dr. 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 resistant Staph. aureus Abnormal [facility] Wound Culture Meth. resistant Stap h. aureus Abnormal [facility] Wound Culture Negative Abnormal [facility] Vancomycin, Random Levelon 0 10-14-2024 VANCO, RANDOM 15.9 ug/mL High 0.0-15.0 [facility] Comment on above: Result Comment: VANC OMYCIN STANDARD DRUG THERAPY: CRITICAL VALUE IS > 15.0 mg/LVANCOMYCIN HIGH INTENSITY THERAPY: CRITICAL VALUE IS > 20.0 mg/LPLEASE CONTACT PHARMACY SERVICES (#1706) FOR INTERPRETATIONOF RESULTS. THIS RESULT DOES NOT REPRESENT A PEAK OR TROUGHLEVEL FOR THIS DRUG. Performed By: #### L 501.8850 ####[facility] [address] [place], [place], [id number] Vancomycin, Trough Levelon 0 10-14-2024 VANCO, TROUGH 22.3 ug/mL High 5.0-15.0 [facility] Comment on above: Order Comment: 1400 Result Comment: Xavier mmended goal trough ranges are generally 10-15 mcg/mlfor less severe/complicated infections such as cellulitisor UTI and 15-20 mcg/ml for more severe/complicatedinfections such as bacteremia/sepsis, osteomyelitis,pneumonia or meningitis. Goal trough ranges should takeinto account indication, patient-specific factors andorganism KIARA.VANCOMYCIN STANDARED DRUG THERAPY TROUGH LEVEL: 5.0 - 15.0 mg/LVANCOMYCIN HIGH INTENSITY THERAPY TROUGH LEVEL: 15.0 - 20.0 mg/LHigh Intensity therapy recommended for serious lifethreatening infections include:- Onjrtioteu-Nmclvftjnids-Wdyckpkcx (Ventilator/Healtcare Associated)-SepsisPLEASE CONTACT PHARMACY SERVICES (#4048) FOR INTERPRETATIONOF RESULTS. Performed By: #### L 501.8820 ####[facility] [address] [place], [place], [id number] Absolute neutrophil countOrd ered By: Shayna Martinez on 10-13-2024 Neutrophils (Bld) [#/Vol] 2.2 10*3/uL 2.0-7.7 [facility] Activated partial thrombopla stin time (aPTT) in platelet poor plasma by coagulation aOrdered By: Shayna Martinez on 10-13-2024 aPTT Coag (PPP) [Time] 33.8 s 24.1-36.2 [facility] Anion gap in Serum or Plasma Ordered By: Shayna Martinez on 10-13-2024 Anion gap [Moles/Vol] 9 mmol/L 5-[address] [facility] BC GPC IDon 10-13-2024 BC GPC ID Normal [facility] Comment on above: Performed By: #### M 100.636, M200.1000 ####[facility] [address] [place], [address] BUN/creatinine ratioOrdered By: Shayna Martinez on 10-13-2024 Urea nitrogen/Creatinine [Mass ratio] 28.2 mg/mg High 10-20 [facility] Basic Metabolic Profile (BMP )on 10-13-2024 BUN Normal 4-19 [facility] Comment on above: Result Comment: Canc elled via OM: Order cancelled - Patient discharged Performed By: #### L 500.2500, L100.0100 ####[facility] [address] [place], [address] BUN/CRE Normal 10-20 [facility] Comment on above: Result Comment: Canc elled via OM: Order cancelled - Patient discharged Performed By: #### L 500.2500, L100.0100 ####[facility] [address] [place], [address] Calcium Normal 7.6-11.0 [facility] Comment on above: Result Comment: Canc elled via OM: Order cancelled - Patient discharged Performed By: #### L 500.2500, L100.0100 ####[facility] [address] [place], [address] CL Normal 98-108 [facility] Comment on above: Result Comment: Canc elled via OM: Order cancelled - Patient discharged Performed By: #### L 500.2500, L100.0100 ####[facility] [address] [place], [address] CO2 Normal 21.0-32.0 [facility] Comment on above: Result Comment: Canc elled via OM: Order cancelled - Patient discharged Performed By: #### L 500.2500, L100.0100 ####[facility] [address] [place], [address] CREAT,SERUM Normal 0.70-1.20 [facility] Comment on above: Result Comment: Canc elled via OM: Order cancelled - Patient discharged Performed By: #### L 500.2500, L100.0100 ####[facility] [address] [place], [address] eGFR Normal >60 [facility] Comment on above: Result Comment: Canc elled via OM: Order cancelled - Patient discharged Performed By: #### L 500.2500, L100.0100 ####[facility] [address] [place], [address] GAP Normal 5-15 [facility] Comment on above: Result Comment: Canc elled via OM: Order cancelled - Patient discharged Performed By: #### L 500.2500, L100.0100 ####[facility] [address] [place], [address] GLU Normal 70-99 [facility] Comment on above: Result Comment: Canc elled via OM: Order cancelled - Patient discharged Performed By: #### L 500.2500, L100.0100 ####[facility] [address] [place], [address] Potassium Normal 3.3-5.1 [facility] Comment on above: Result Comment: Canc elled via OM: Order cancelled - Patient discharged Performed By: #### L 500.2500, L100.0100 ####[facility] [address] [place], [address] Basic Metabolic Profile (BMP) Normal 133-145 [facility] Comment on above: Result Comment: Canc elled via OM: Order cancelled - Patient discharged Performed By: #### L 500.2500, L100.0100 ####[facility] [address] [place], [address] Basophil percentageOrdered B y: Shayna Martinez on 10-13-2024 Basophils/100 WBC (Bld) 1.0 % 0-[address] [facility] Bedside Glucoseon 10-13-2024 FINGERSTICK GLU 114 mg/dL High 74-106 [facility] Comment on above: Result Comment: PETER HINSON OF PATIENT CARE PER NURSING PROTOCOL Performed By: #### L 501.080 ####[facility] [address] [place], [place], [id number] Bilirubin, totalOrdered By: Shayna Martinez on 10-13-2024 Bilirubin [Mass/Vol] 0.44 mg/dL 0.00-1.30 [facility] Blood cultureOrdered By: Jose Luis Martinez on 10-13-2024 Bacteria identified Cx Nom (Bld) No growth in 5 days. [facility] Bacteria identified Cx Nom (Bld) No growth in 5 days. [facility] CBC W/Diff, Automatedon Absolute Lymph 0.70 X10 3/uL Low 0.83-4.51 [facility] Comment on above: Performed By: #### L 300.4310, L500.4050, L503.6005, L100.0100, L300.3900, M200.1000 ####[facility] [address] [place], [address] Absolute Neut 2.2 X10 3/uL Normal 2.0-7.7 [facility] Comment on above: Performed By: #### L 300.4310, L500.4050, L503.6005, L100.0100, L300.3900, M200.1000 ####[facility] [address] [place], [address] Basophils/100 WBC (Bld) 1.0 % Normal 0-[address] [facility] Comment on above: Performed By: #### L 300.4310, L500.4050, L503.6005, L100.0100, L300.3900, M200.1000 ####[facility] [address] [place], [address] Eosinophils/100 WBC (Bld) 2.5 % Normal 0-5 [facility] Comment on above: Performed By: #### L 300.4310, L500.4050, L503.6005, L100.0100, L300.3900, M200.1000 ####[facility] [address] [place], [address] Erythrocyte distribution width (RBC) [Ratio] 16.7 % High 11.6-14.6 [facility] Comment on above: Performed By: #### L 300.4310, L500.4050, L503.6005, L100.0100, L300.3900, M200.1000 ####[facility] [address] [place], [address] Hematocrit (Bld) [Volume fraction] 34.3 % Low 40-54 [facility] Comment on above: Performed By: #### L 300.4310, L500.4050, L503.6005, L100.0100, L300.3900, M200.1000 ####[facility] [address] [place], [address] Hemoglobin (Bld) [Mass/Vol] 10.7 g/dL Low 13.0-16.5 [facility] Comment on above: Performed By: #### L 300.4310, L500.4050, L503.6005, L100.0100, L300.3900, M200.1000 ####[facility] [address] [place], [address] IG% 1.500 High 0.0-0.9 [facility] Comment on above: Result Comment: IG% - Immature Granulocytes (promyelocytes, myelocytes andmetamyelocytes) > 1% indicates that a LEFT SHIFT is Present. Performed By: #### L 300.4310, L500.4050, L503.6005, L100.0100, L300.3900, M200.1000 ####[facility] [address] [place], [address] Lymphocytes/100 WBC (Bld) 17.7 % Low 19-41 [facility] Comment on above: Performed By: #### L 300.4310, L500.4050, L503.6005, L100.0100, L300.3900, M200.1000 ####[facility] [address] [place], [address] MCH (RBC) [Entitic mass] 27.1 pg Normal 27.0-32.0 [facility] Comment on above: Performed By: #### L 300.4310, L500.4050, L503.6005, L100.0100, L300.3900, M200.1000 ####[facility] [address] [place], [address] MCHC (RBC) [Mass/Vol] 31.2 g/dL Low 32-36 [facility] Comment on above: Performed By: #### L 300.4310, L500.4050, L503.6005, L100.0100, L300.3900, M200.1000 ####[facility] [address] [place], [address] MCV (RBC) [Entitic vol] 86.8 fL Normal 80-[address] [facility] Comment on above: Performed By: #### L 300.4310, L500.4050, L503.6005, L100.0100, L300.3900, M200.1000 ####[facility] [address] [place], [address] Monocytes/100 WBC (Bld) 22.0 % High 0-[address] [facility] Comment on above: Performed By: #### L 300.4310, L500.4050, L503.6005, L100.0100, L300.3900, M200.1000 ####[facility] [address] [place], [address] Neutrophils/100 WBC (Bld) 55.3 % Normal 47-70 [facility] Comment on above: Performed By: #### L 300.4310, L500.4050, L503.6005, L100.0100, L300.3900, M200.1000 ####[facility] [address] [place], [address] Nucleated RBC (Bld) [#/Vol] 0 10*3/uL Normal 0-5 [facility] Comment on above: Performed By: #### L 300.4310, L500.4050, L503.6005, L100.0100, L300.3900, M200.1000 ####[facility] [address] [place], [address] Platelets (Bld) [#/Vol] 80 10*3/uL Low 150-[address] [facility] Comment on above: Performed By: #### L 300.4310, L500.4050, L503.6005, L100.0100, L300.3900, M200.1000 ####[facility] [address] [place], [address] RBC (Bld) [#/Vol] 3.95 10*6/uL Low 4.6-6.2 [facility] Comment on above: Performed By: #### L 300.4310, L500.4050, L503.6005, L100.0100, L300.3900, M200.1000 ####[facility] [address] [place], [address] RDW SD 53.5 fl High 35.1-43.9 [facility] Comment on above: Performed By: #### L 300.4310, L500.4050, L503.6005, L100.0100, L300.3900, M200.1000 ####[facility] [address] [place], [address] WBC (Bld) [#/Vol] 4.0 10*3/uL Low 4.4-11.0 [facility] Comment on above: Performed By: #### L 300.4310, L500.4050, L503.6005, L100.0100, L300.3900, M200.1000 ####[facility] [address] [place], [address] Absolute Neut Normal 2.0-7.7 [facility] Comment on above: Result Comment: Canc elled via OM: Order cancelled - Patient discharged Performed By: #### L 500.2500, L100.0100 ####[facility] [address] [place], [address] HCT Normal 40-54 [facility] Comment on above: Result Comment: Canc elled via OM: Order cancelled - Patient discharged Performed By: #### L 500.2500, L100.0100 ####[facility] [address] [place], [address] HGB Normal 13.0-16.5 [facility] Comment on above: Result Comment: Canc elled via OM: Order cancelled - Patient discharged Performed By: #### L 500.2500, L100.0100 ####[facility] [address] [place], [address] MCH Normal 27.0-32.0 [facility] Comment on above: Result Comment: Canc elled via OM: Order cancelled - Patient discharged Performed By: #### L 500.2500, L100.0100 ####[facility] [address] [place], [address] MCHC Normal 32-36 [facility] Comment on above: Result Comment: Canc elled via OM: Order cancelled - Patient discharged Performed By: #### L 500.2500, L100.0100 ####[facility] [address] [place], [address] MCV Normal 80-94 [facility] Comment on above: Result Comment: Canc elled via OM: Order cancelled - Patient discharged Performed By: #### L 500.2500, L100.0100 ####[facility] [address] [place], [address] NEUT% Normal 47-70 [facility] Comment on above: Result Comment: Canc elled via OM: Order cancelled - Patient discharged Performed By: #### L 500.2500, L100.0100 ####[facility] [address] [place], [address] PLT Normal 150-450 [facility] Comment on above: Result Comment: Canc elled via OM: Order cancelled - Patient discharged Performed By: #### L 500.2500, L100.0100 ####[facility] [address] [place], [address] RBC Normal 4.6-6.2 [facility] Comment on above: Result Comment: Canc elled via OM: Order cancelled - Patient discharged Performed By: #### L 500.2500, L100.0100 ####[facility] [address] [place], [address] RDW CV Normal 11.6-14.6 [facility] Comment on above: Result Comment: Canc elled via OM: Order cancelled - Patient discharged Performed By: #### L 500.2500, L100.0100 ####[facility] [address] [place], [address] RDW SD Normal 35.1-43.9 [facility] Comment on above: Result Comment: Canc elled via OM: Order cancelled - Patient discharged Performed By: #### L 500.2500, L100.0100 ####[facility] [address] [place], [address] WBC Normal 4.4-11.0 [facility] Comment on above: Result Comment: Canc elled via OM: Order cancelled - Patient discharged Performed By: #### L 500.2500, L100.0100 ####[facility] [address] [place], [address] Carbon dioxide, total [Moles /volume] in Central venous bloodOrdered By: Shayna Martinez on 10-13-2024 CO2 [Moles/Vol] 23.3 mmol/L 21.0-32.0 [facility] Chloride assayOrdered By: Sharad Martinez on 10-13-2024 Chloride [Moles/Vol] 107 mmol/L 98-108 [facility] Comprehensive Metabolic Prof ilon 10-13-2024 Albumin [Mass/Vol] 3.0 g/dL Low 3.4-4.8 [facility] Comment on above: Performed By: #### L 300.4310, L500.4050, L503.6005, L100.0100, L300.3900, M200.1000 ####[facility] [address] [place], [address] Albumin/Globulin [Mass ratio] 0.9 {ratio} Normal 0.9-2.4 [facility] Comment on above: Performed By: #### L 300.4310, L500.4050, L503.6005, L100.0100, L300.3900, M200.1000 ####[facility] [address] [place], [address] ALK PHOS 70 U/L Normal 40-129 [facility] Comment on above: Performed By: #### L 300.4310, L500.4050, L503.6005, L100.0100, L300.3900, M200.1000 ####[facility] [address] [place], [address] ALT [Catalytic activity/Vol] 16 U/L Normal <=46 [facility] Comment on above: Performed By: #### L 300.4310, L500.4050, L503.6005, L100.0100, L300.3900, M200.1000 ####[facility] [address] [place], [address] AST [Catalytic activity/Vol] 19 U/L Normal <=37 [facility] Comment on above: Performed By: #### L 300.4310, L500.4050, L503.6005, L100.0100, L300.3900, M200.1000 ####[facility] [address] [place], [address] Bilirubin [Mass/Vol] 0.44 mg/dL Normal 0.00-1.30 [facility] Comment on above: Performed By: #### L 300.4310, L500.4050, L503.6005, L100.0100, L300.3900, M200.1000 ####[facility] [address] [place], [address] BUN/CRE 28.2 RATIO High 10-20 [facility] Comment on above: Performed By: #### L 300.4310, L500.4050, L503.6005, L100.0100, L300.3900, M200.1000 ####[facility] [address] [place], [address] Calcium [Mass/Vol] 8.8 mg/dL Normal 7.6-11.0 [facility] Comment on above: Performed By: #### L 300.4310, L500.4050, L503.6005, L100.0100, L300.3900, M200.1000 ####[facility] [address] [place], [address] Chloride [Moles/Vol] 107 mmol/L Normal 98-108 [facility] Comment on above: Performed By: #### L 300.4310, L500.4050, L503.6005, L100.0100, L300.3900, M200.1000 ####[facility] [address] [place], [address] CO2 [Moles/Vol] 23.3 mmol/L Normal 21.0-32.0 [facility] Comment on above: Performed By: #### L 300.4310, L500.4050, L503.6005, L100.0100, L300.3900, M200.1000 ####[facility] [address] [place], [address] Creatinine [Mass/Vol] 0.93 mg/dL Normal 0.70-1.20 [facility] Comment on above: Performed By: #### L 300.4310, L500.4050, L503.6005, L100.0100, L300.3900, M200.1000 ####[facility] [address] [place], [address] ECRCL 102.20 ml/min Normal 50-250 [facility] Comment on above: Performed By: #### L 300.4310, L500.4050, L503.6005, L100.0100, L300.3900, M200.1000 ####[facility] [address] [place], [address] GAP 9 Normal 5-15 [facility] Comment on above: Performed By: #### L 300.4310, L500.4050, L503.6005, L100.0100, L300.3900, M200.1000 ####[facility] [address] [place], [address] GFR/1.73 sq M.predicted among non-blacks MDRD (S/P/Bld) [Vol rate/Area] 88 mL/min/{1.73_m2} Normal >60 [facility] Comment on above: Result Comment: mL/m in/1.73m2 CKD-EPI Creatinine Equation (2020) Performed By: #### L 300.4310, L500.4050, L503.6005, L100.0100, L300.3900, M200.1000 ####[facility] [address] [place], [address] Globulin (S) [Mass/Vol] 3.2 g/dL Normal 2.2-4.2 [facility] Comment on above: Performed By: #### L 300.4310, L500.4050, L503.6005, L100.0100, L300.3900, M200.1000 ####[facility] [address] [place], [address] Glucose [Mass/Vol] 122 mg/dL High 70-99 [facility] Comment on above: Performed By: #### L 300.4310, L500.4050, L503.6005, L100.0100, L300.3900, M200.1000 ####[facility] [address] [place], [address] Potassium [Moles/Vol] 4.3 mmol/L Normal 3.3-5.1 [facility] Comment on above: Performed By: #### L 300.4310, L500.4050, L503.6005, L100.0100, L300.3900, M200.1000 ####[facility] [address] [place], [address] Sodium [Moles/Vol] 138 mmol/L Normal 133-145 [facility] Comment on above: Performed By: #### L 300.4310, L500.4050, L503.6005, L100.0100, L300.3900, M200.1000 ####[facility] [address] [place], [address] T PROT 6.2 g/dL Normal 5.9-8.4 [facility] [place] Comment on above: Performed By: #### L 300.4310, L500.4050, L503.6005, L100.0100, L300.3900, M200.1000 ####[facility] [address] [place], [address] Urea nitrogen [Mass/Vol] 26 mg/dL High 4-19 [facility] Comment on above: Performed By: #### L 300.4310, L500.4050, L503.6005, L100.0100, L300.3900, M200.1000 ####[facility] [address] [place], [address] Culture, Blood (WB)on 2024 CUB Normal [facility] Comment on above: Performed By: #### L 300.4310, L500.4050, L300.3900, L503.6005, M200.1000, L100.0100 ####[facility] [address] [place], [address] Echo Complete W/ Contraston 10-13-2024 Echo Complete W/ Contrast Normal [facility] Emergency Department Summary on 10-13-2024 Emergency Department Summary Normal [facility] Eosinophil percentageOrdered By: Shayna Martinez on 10-13-2024 Eosinophils/100 WBC (Bld) 2.5 % 0-5 [facility] Erythrocyte distribution wid th (RBC) [Ratio]Ordered By: Shayna Martinez on 10-13-2024 Erythrocyte distribution width (RBC) [Entitic vol] 53.5 fL High 35.1-43.9 [facility] Erythrocyte distribution wid th ratioOrdered By: Shayna Martinez on 10-13-2024 Erythrocyte distribution width (RBC) [Ratio] 16.7 % High 11.6-14.6 [facility] Estimation of creatinine jass aranceOrdered By: Shayna Martinez on 10-13-2024 Estimated Creatinine Clearance Calc 102.20 ml/min 50-250 [facility] GFR/1.73 sq M.predicted kayla g non-blacks MDRD (S/P/Bld) [Vol rate/Area]Ordered By: Shayna Martinez on 10-13-2024 Estimated GFR (MDRD) Non-Af Amer 88 >60 [facility] Comment on above: mL/min/1.73m2 CKD-EP I Creatinine Equation (2020) H AND P Exam - Hospital[place] 10-13-2024 H&P Exam - Hospitalist Normal [facility] Hematocrit Auto (Bld) [Volum e fraction]Ordered By: Shayna Martinez on 10-13-2024 Hematocrit (Bld) [Volume fraction] 34.3 % Low 40-54 [facility] Hemoglobin measurementOrdere d By: Shayna Martinez on 10-13-2024 Hemoglobin (Bld) [Mass/Vol] 10.7 g/dL Low 13.0-16.5 [facility] Immature granulocytes/100 WB C Auto (Bld)Ordered By: Shayna Martinez on 10-13-2024 Immature granulocytes/100 WBC (Bld) 1.500 % High 0.0-0.9 [facility] Comment on above: IG% - Immature Granu locytes (promyelocytes, myelocytes and metamyelocytes) > 1% indicates that a LEFT SHIFT is Present. International normalized rat io (INR) calculationOrdered By: Shayna Martinez on 10-13-2024 INR Coag (Bld) [Relative time] 1.3 {INR} [facility] Laboratory - Chemistry and C hemistry - challengeOrdered By: Shayna Martinez on 10-13-2024 AST [Catalytic activity/Vol] 19 U/L <38 [facility] Lactic Acidon 10-13-2024 Lactate [Moles/Vol] mmol/L Normal 0.0-2.0 [facility] Comment on above: Order Comment: Y Performed By: #### L 300.4310, L500.4050, L503.6005, L100.0100, L300.3900, M200.1000 ####[facility] [address] [place], [address] Lactic acid measurementOrder ed By: Shayna Martinez on 10-13-2024 Lactate [Moles/Vol] mmol/L 0.0-2.0 [facility] Lymphocytes Auto (Unsp spec) [#/Vol]Ordered By: Shayna Martinez on 10-13-2024 Lymphocytes (Bld) [#/Vol] 0.70 10*3/uL Low 0.83-4.51 [facility] Lymphocytes/100 WBC Auto (Un sp spec)Ordered By: Shayna Martinez on 10-13-2024 Lymphocytes/100 WBC (Bld) 17.7 % Low 19-41 [facility] MCV (mean corpuscular volume ) determinationOrdered By: Shayna Martinez on 10-13-2024 MCV (RBC) [Entitic vol] 86.8 fL 80-[address] [facility] Mean corpuscular hemoglobin (MCH) determinationOrdered By: Shayna Martinez on 10-13-2024 MCH (RBC) [Entitic mass] 27.1 pg 27.0-32.0 [facility] Mean corpuscular hemoglobin concentration (MCHC) determinationOrdered By: Shayna Martinez on 10-13-2024 MCHC (RBC) [Mass/Vol] 31.2 g/dL Low 32-36 [facility] Monocyte percentageOrdered B y: Shayna Martinez on 10-13-2024 Monocytes/100 WBC (Bld) 22.0 % High 0-[address] [facility] Neutrophil percentageOrdered By: Shayna Martinez on 10-13-2024 Neutrophils/100 WBC (Bld) 55.3 % 47-70 [facility] No Panel InformationOrdered By: Shayna Martinez on 10-13-2024 19 U/L <38 [facility] Nucleated red blood cell per centageOrdered By: Shayna Martinez on 10-13-2024 Nucleated RBC/100 WBC (Bld) [Ratio] 0 % 0-5 [facility] Partial Thromboplast Timeon 10-13-2024 aPTT Coag (Bld) [Time] 33.8 s Normal 24.1-36.2 [facility] Comment on above: Performed By: #### L 300.4310, L500.4050, L503.6005, L100.0100, L300.3900, M200.1000 ####[facility] [address] [place], [address] Platelet countOrdered By: Sharad Martinez on 10-13-2024 Platelets (Bld) [#/Vol] 80 10*3/uL Low 150-[address] [facility] Potassium (Unsp spec) [Mass/ Vol]Ordered By: Shayna Martinez on 10-13-2024 Potassium [Moles/Vol] 4.3 mmol/L 3.3-5.1 [facility] Prothrombin Time w/INRon INR Coag (PPP) [Relative time] 1.3 {INR} Normal [facility] Comment on above: Performed By: #### L 300.4310, L500.4050, L503.6005, L100.0100, L300.3900, M200.1000 ####[facility] [address] [place], [address] PT Coag (PPP) [Time] 16.0 s High 11.7-14.9 [facility] Comment on above: Performed By: #### L 300.4310, L500.4050, L503.6005, L100.0100, L300.3900, M200.1000 ####[facility] [address] [place], [address] Prothrombin timeOrdered By: Shayna Martinez on 10-13-2024 PT Coag (PPP) [Time] 16.0 s High 11.7-14.9 [facility] RBC Auto (Bld) [#/Vol]Ordere d By: Shayna Martinez on 10-13-2024 RBC (Bld) [#/Vol] 3.95 10*6/uL Low 4.6-6.2 [facility] Serum creatinine measurement (mass/volume)Ordered By: Shayna Martinez on 10-13-2024 Creatinine [Mass/Vol] 0.93 mg/dL 0.70-1.20 [facility] Serum globulin measurementOr dered By: Shayna Martinez on 10-13-2024 Globulin (S) [Mass/Vol] 3.2 g/dL 2.2-4.[address] [facility] Serum glucose measurement (m ass/volume)Ordered By: Shayna Martinez on 10-13-2024 Glucose [Mass/Vol] 122 mg/dL High 70-99 [facility] Serum or plasma alanine matson otransferase (ALT) measurementOrdered By: Shayna Martinez on 10-13-2024 ALT [Catalytic activity/Vol] 16 U/L <47 [facility] Serum or plasma albumin isidro urement (mass/volume)Ordered By: Shayna Martinez on 10-13-2024 Albumin [Mass/Vol] 3.0 g/dL Low 3.4-4.8 [facility] Serum or plasma albumin/glob ulin mass ratioOrdered By: Shayna Martinez on 10-13-2024 Albumin/Globulin [Mass ratio] 0.9 {ratio} 0.9-2.4 [facility] Serum or plasma alkaline yumiko sphatase measurementOrdered By: Shayna Martinez on 10-13-2024 ALP [Catalytic activity/Vol] 70 U/L 40-129 [facility] Serum or plasma calcium isidro urement (mass/volume)Ordered By: Shayna Martinez on 10-13-2024 Calcium [Mass/Vol] 8.8 mg/dL 7.6-11.0 [facility] Serum or plasma urea nitroge n measurement (mass/volume)Ordered By: Shayna Martinez on 10-13-2024 Urea nitrogen [Mass/Vol] 26 mg/dL High 4-19 [facility] Sodium levelOrdered By: Broderick Martinez on 10-13-2024 Sodium [Moles/Vol] 138 mmol/L 133-145 [facility] Total proteinOrdered By: Jose Luis grantveronica Juan on 10-13-2024 Protein [Mass/Vol] 6.2 g/dL 5.9-8.4 [facility] White blood cell (WBC) count Ordered By: Shayna Martinez on 10-13-2024 WBC (Bld) [#/Vol] 4.0 10*3/uL Low 4.4-11.0 [facility] aPTT Coag (PPP) [Time]Ordere d By: Shayna Martinez on 10-13-2024 aPTT Coag (Bld) [Time] 33.8 s 24.1-36.2 [facility] Absolute lymphocyte countOrd ered By: Dl Neely on 10-12-2024 Lymphocytes Auto (Unsp spec) [#/Vol] 0.67 10*3/uL Low 0.83-4.51 [facility] Absolute neutrophil countOrd ered By: Dl Neely on 10-12-2024 Neutrophils (Bld) [#/Vol] 2.3 10*3/uL 2.0-7.7 [facility] Anion gap in Serum or Plasma Ordered By: Dl Neely on 10-12-2024 Anion gap [Moles/Vol] 7 mmol/L 5-15 [facility] Automated lymphocyte count a s percentage of total leukocytesOrdered By: Dl Neely on 10-12-2024 Lymphocytes/100 WBC Auto (Unsp spec) 18.1 % Low 19-41 [facility] BUN/creatinine ratioOrdered By: Dl Neely on 10-12-2024 Urea nitrogen/Creatinine [Mass ratio] 36.8 mg/mg High 10-20 [facility] Basic Metabolic Profile (BMP )on 10-12-2024 BUN/CRE 36.8 RATIO High 04-30 [facility] Comment on above: Performed By: #### L 501.5200, L501.2300, L100.0100, L500.2500 ####[facility] [address] [place], [address] Calcium [Mass/Vol] 8.2 mg/dL Normal 7.6-11.0 [facility] Comment on above: Performed By: #### L 501.5200, L501.2300, L100.0100, L500.2500 ####[facility] [address] [place], [address] Chloride [Moles/Vol] 112 mmol/L High 98-108 [facility] Comment on above: Performed By: #### L 501.5200, L501.2300, L100.0100, L500.2500 ####[facility] [address] [place], [address] CO2 [Moles/Vol] 21.7 mmol/L Normal 21.0-32.0 [facility] Comment on above: Performed By: #### L 501.5200, L501.2300, L100.0100, L500.2500 ####[facility] [address] [place], [address] Creatinine [Mass/Vol] 1.11 mg/dL Normal 0.70-1.20 [facility] Comment on above: Performed By: #### L 501.5200, L501.2300, L100.0100, L500.2500 ####[facility] [address] [place], [address] ECRCL 84.02 ml/min Normal 50-250 [facility] Comment on above: Performed By: #### L 501.5200, L501.2300, L100.0100, L500.2500 ####[facility] [address] [place], [address] GAP 7 Normal 5-15 [facility] Comment on above: Performed By: #### L 501.5200, L501.2300, L100.0100, L500.2500 ####[facility] [address] [place], [address] GFR/1.73 sq M.predicted among non-blacks MDRD (S/P/Bld) [Vol rate/Area] 72 mL/min/{1.73_m2} Normal >60 [facility] Comment on above: Result Comment: mL/m in/1.73m2 CKD-EPI Creatinine Equation (2020) Performed By: #### L 501.5200, L501.2300, L100.0100, L500.2500 ####[facility] [address] [place], [address] Glucose [Mass/Vol] 117 mg/dL High 70-99 [facility] Comment on above: Performed By: #### L 501.5200, L501.2300, L100.0100, L500.2500 ####[facility] [address] [place], [address] Potassium [Moles/Vol] 4.3 mmol/L Normal 3.3-5.1 [facility] Comment on above: Performed By: #### L 501.5200, L501.2300, L100.0100, L500.2500 ####[facility] [address] [place], [address] Sodium [Moles/Vol] 141 mmol/L Normal 133-145 [facility] Comment on above: Performed By: #### L 501.5200, L501.2300, L100.0100, L500.2500 ####[facility] [address] [place], [address] Urea nitrogen [Mass/Vol] 41 mg/dL High 4-19 [facility] Comment on above: Performed By: #### L 501.5200, L501.2300, L100.0100, L500.2500 ####[facility] [address] [place], [address] Basophil percentageOrdered B y: Dl Neely on 10-12-2024 Basophils/100 WBC (Bld) 0.3 % 0-[address] [facility] Bedside Glucoseon 10-12-2024 FINGERSTICK GLU 146 mg/dL High 74-106 [facility] Comment on above: Result Comment: PETER GEMENT OF PATIENT CARE PER NURSING PROTOCOL Performed By: #### L 501.080 ####[facility] [address] [place], [address] FINGERSTICK GLU 114 mg/dL High 74-106 [facility] Comment on above: Result Comment: PETER GEMENT OF PATIENT CARE PER NURSING PROTOCOL Performed By: #### L 501.080 ####[facility] [address] [place], [address] CBC W/Diff, Automatedon MPV TNP Normal 6.2-12.0 [facility] Comment on above: Performed By: #### L 501.5200, L501.2300, L100.0100, L500.2500 ####[facility] [address] [place], [address] Absolute Lymph 0.67 X10 3/uL Low 0.83-4.51 [facility] Comment on above: Performed By: #### L 501.5200, L501.2300, L100.0100, L500.2500 ####[facility] [address] [place], [address] Absolute Neut 2.3 X10 3/uL Normal 2.0-7.7 [facility] Comment on above: Performed By: #### L 501.5200, L501.2300, L100.0100, L500.2500 ####[facility] [address] [place], [address] Basophils/100 WBC (Bld) 0.3 % Normal 0-[address] [facility] Comment on above: Performed By: #### L 501.5200, L501.2300, L100.0100, L500.2500 ####[facility] [address] [place], [address] Eosinophils/100 WBC (Bld) 1.3 % Normal 0-5 [facility] Comment on above: Performed By: #### L 501.5200, L501.2300, L100.0100, L500.2500 ####[facility] [address] [place], [address] Erythrocyte distribution width (RBC) [Ratio] 17.1 % High 11.6-14.6 [facility] Comment on above: Performed By: #### L 501.5200, L501.2300, L100.0100, L500.2500 ####[facility] [address] [place], [address] Hematocrit (Bld) [Volume fraction] 29.3 % Low 40-54 [facility] Comment on above: Performed By: #### L 501.5200, L501.2300, L100.0100, L500.2500 ####[facility] [address] [place], [address] Hemoglobin (Bld) [Mass/Vol] 9.3 g/dL Low 13.0-16.5 [facility] Comment on above: Performed By: #### L 501.5200, L501.2300, L100.0100, L500.2500 ####[facility] [address] [place], [address] IG% 0.500 Normal 0.0-0.9 [facility] Comment on above: Result Comment: IG% - Immature Granulocytes (promyelocytes, myelocytes andmetamyelocytes) > 1% indicates that a LEFT SHIFT is Present. Performed By: #### L 501.5200, L501.2300, L100.0100, L500.2500 ####[facility] [address] [place], [address] Lymphocytes/100 WBC (Bld) 18.1 % Low 19-41 [facility] Comment on above: Performed By: #### L 501.5200, L501.2300, L100.0100, L500.2500 ####[facility] [address] [place], [address] MCH (RBC) [Entitic mass] 27.4 pg Normal 27.0-32.0 [facility] Comment on above: Performed By: #### L 501.5200, L501.2300, L100.0100, L500.2500 ####[facility] [address] [place], [address] MCHC (RBC) [Mass/Vol] 31.7 g/dL Low 32-36 [facility] Comment on above: Performed By: #### L 501.5200, L501.2300, L100.0100, L500.2500 ####[facility] [address] [place], [address] MCV (RBC) [Entitic vol] 86.4 fL Normal 80-94 [facility] Comment on above: Performed By: #### L 501.5200, L501.2300, L100.0100, L500.2500 ####[facility] [address] [place], [address] Monocytes/100 WBC (Bld) 19.1 % High 0-10 [facility] Comment on above: Performed By: #### L 501.5200, L501.2300, L100.0100, L500.2500 ####[facility] [address] [place], [address] Neutrophils/100 WBC (Bld) 60.7 % Normal 47-70 [facility] Comment on above: Performed By: #### L 501.5200, L501.2300, L100.0100, L500.2500 ####[facility] [address] [place], [address] Nucleated RBC (Bld) [#/Vol] 0 10*3/uL Normal 0-5 [facility] Comment on above: Performed By: #### L 501.5200, L501.2300, L100.0100, L500.2500 ####[facility] [address] [place], [address] Platelets (Bld) [#/Vol] 56 10*3/uL Low 150-[address] [facility] Comment on above: Performed By: #### L 501.5200, L501.2300, L100.0100, L500.2500 ####[facility] [address] [place], [address] RBC (Bld) [#/Vol] 3.39 10*6/uL Low 4.6-6.2 [facility] Comment on above: Performed By: #### L 501.5200, L501.2300, L100.0100, L500.2500 ####[facility] [address] [place], [address] RDW SD 54.2 fl High 35.1-43.9 [facility] Comment on above: Performed By: #### L 501.5200, L501.2300, L100.0100, L500.2500 ####[facility] [address] [place], [address] WBC (Bld) [#/Vol] 3.7 10*3/uL Low 4.4-11.0 [facility] Comment on above: Performed By: #### L 501.5200, L501.2300, L100.0100, L500.2500 ####[facility] [address] [place], [address] Carbon dioxide, total [Moles /volume] in Central venous bloodOrdered By: Dl Neely on 10-12-2024 CO2 [Moles/Vol] 21.7 mmol/L 21.0-32.0 [facility] Chloride assayOrdered By: Sharad Neely on 10-12-2024 Chloride [Moles/Vol] 112 mmol/L High 98-108 [facility] Eosinophil percentageOrdered By: Dl Neely on 10-12-2024 Eosinophils/100 WBC (Bld) 1.3 % 0-5 [facility] Erythrocyte distribution wid th (RBC) [Ratio]Ordered By: Dl Neely on 10-12-2024 Erythrocyte distribution width (RBC) [Entitic vol] 54.2 fL High 35.1-43.9 [facility] Erythrocyte distribution wid th ratioOrdered By: Dl Neely on 10-12-2024 Erythrocyte distribution width (RBC) [Ratio] 17.1 % High 11.6-14.6 [facility] Erythrocyte distribution wid th standard deviationOrdered By: Dl Neely on 10-12-2024 Erythrocyte distribution width (RBC) [Ratio] 54.2 fl High 35.1-43.9 [facility] Estimation of creatinine jass aranceOrdered By: Dl Neely on 10-12-2024 Estimated Creatinine Clearance Calc 84.02 ml/min 50-250 [facility] GFR/1.73 sq M.predicted kayla g non-blacks MDRD (S/P/Bld) [Vol rate/Area]Ordered By: Dl Neely on 10-12-2024 Estimated GFR (MDRD) Non-Af Amer 72 >60 [facility] Comment on above: mL/min/1.73m2 CKD-EP I Creatinine Equation (2020) Glomerular filtration rate ( GFR) estimation/1.73 sq m using serum, plasma, or whole bOrdered By: Dl Neely on 10-12-2024 GFR/1.73 sq M.predicted among non-blacks MDRD (S/P/Bld) [Vol rate/Area] 72 mL/min/{1.73_m2} >60 [facility] Comment on above: mL/min/1.73m2 CKD-EP I Creatinine Equation (2020) [facility] deOrdered By: Dl Neely on 10-12-2024 Bedside Glucose (Misc Panel) 146 mg/dL High 74-106 [facility] Comment on above: MANAGEMENT OF PATIEN T CARE PER NURSING PROTOCOL Glucose [Mass/Vol] 146 mg/dL High 74-106 [facility] Comment on above: MANAGEMENT OF PATIEN T CARE PER NURSING PROTOCOL Hematocrit Auto (Bld) [Volum e fraction]Ordered By: Dl Neely on 10-12-2024 Hematocrit (Bld) [Volume fraction] 29.3 % Low 40-54 [facility] Hemoglobin measurementOrdere d By: Dl Neely on 10-12-2024 Hemoglobin (Bld) [Mass/Vol] 9.3 g/dL Low 13.0-16.5 [facility] Immature granulocytes/100 WB C Auto (Bld)Ordered By: Dl Neely on 10-12-2024 Immature granulocytes/100 WBC (Bld) 0.500 % 0.0-0.9 [facility] Comment on above: IG% - Immature Granu locytes (promyelocytes, myelocytes and metamyelocytes) > 1% indicates that a LEFT SHIFT is Present. Lymphocytes Auto (Unsp spec) [#/Vol]Ordered By: Dl Neely on 10-12-2024 Lymphocytes (Bld) [#/Vol] 0.67 10*3/uL Low 0.83-4.51 [facility] Lymphocytes/100 WBC Auto (Un sp spec)Ordered By: Dl Neely on 10-12-2024 Lymphocytes/100 WBC (Bld) 18.1 % Low 19-41 [facility] MCV (mean corpuscular volume ) determinationOrdered By: Dl Neely on 10-12-2024 MCV (RBC) [Entitic vol] 86.4 fL 80-[address] [facility] Magnesiumon 10-12-2024 Magnesium [Mass/Vol] 2.4 mg/dL High 1.5-2.2 [facility] Comment on above: Performed By: #### L 501.5200, L501.2300, L100.0100, L500.2500 ####[facility] [address] [place], [address] Magnesium (Unsp spec) [Mass/ Vol]Ordered By: Dl Neely on 10-12-2024 Magnesium [Mass/Vol] 2.4 mg/dL High 1.5-2.2 [facility] Magnesium measurement (mass/ volume)Ordered By: Dl Neely on 10-12-2024 Magnesium (Unsp spec) [Mass/Vol] 2.4 mg/dL High 1.5-2.2 [facility] Mean corpuscular hemoglobin (MCH) determinationOrdered By: Dl Neely on 10-12-2024 MCH (RBC) [Entitic mass] 27.4 pg 27.0-32.0 [facility] Mean corpuscular hemoglobin concentration (MCHC) determinationOrdered By: Dl Neely on 10-12-2024 MCHC (RBC) [Mass/Vol] 31.7 g/dL Low 32-36 [facility] Mean platelet volume determi nationOrdered By: Dl Neely on 10-12-2024 [facility] Comment on above: Test not performed Mean platelet volume determination [facility] Comment on above: Test not performed Monocyte percentageOrdered B y: Dl Neely on 10-12-2024 Monocytes/100 WBC (Bld) 19.1 % High 0-[address] [facility] Neutrophil percentageOrdered By: Dl Neely on 10-12-2024 Neutrophils/100 WBC (Bld) 60.7 % 47-70 [facility] Nucleated red blood cell per centageOrdered By: Dl Neely on 10-12-2024 Nucleated RBC/100 WBC (Bld) [Ratio] 0 % 0-5 [facility] Phosphoruson 10-12-2024 Phosphate [Mass/Vol] 3.0 mg/dL Normal 2.7-4.5 [facility] Comment on above: Performed By: #### L 501.5200, L501.2300, L100.0100, L500.2500 ####[facility] [address] [place], [place], [id number] Platelet countOrdered By: Sharad Neely on 10-12-2024 Platelets (Bld) [#/Vol] 56 10*3/uL Low 150-[address] [facility] Potassium (Unsp spec) [Mass/ Vol]Ordered By: Dl Neely on 10-12-2024 Potassium [Moles/Vol] 4.3 mmol/L 3.3-5.1 [facility] Potassium measurement (mass/ volume)Ordered By: Dl Neely on 10-12-2024 Potassium (Unsp spec) [Mass/Vol] 4.3 mmol/L 3.3-5.1 [facility] RBC Auto (Bld) [#/Vol]Ordere d By: Dl Neely on 10-12-2024 RBC (Bld) [#/Vol] 3.39 10*6/uL Low 4.6-6.2 [facility] Serum creatinine measurement (mass/volume)Ordered By: Dl Neely on 10-12-2024 Creatinine [Mass/Vol] 1.11 mg/dL 0.70-1.20 [facility] Serum glucose measurement (m ass/volume)Ordered By: Dl Neely on 10-12-2024 Glucose [Mass/Vol] 117 mg/dL High 70-99 [facility] Serum or plasma calcium isidro urement (mass/volume)Ordered By: lD Neely on 10-12-2024 Calcium [Mass/Vol] 8.2 mg/dL 7.6-11.0 [facility] Serum or plasma urea nitroge n measurement (mass/volume)Ordered By: Dl Neely on 10-12-2024 Urea nitrogen [Mass/Vol] 41 mg/dL High 4-19 [facility] Serum phosphorus measurement Ordered By: Dl Neely on 10-12-2024 Phosphorus Level 3.0 mg/dL 2.7-4.5 [facility] Sodium levelOrdered By: Khalif Neely on 10-12-2024 Sodium [Moles/Vol] 141 mmol/L 133-145 [facility] Urine Cultureon 10-12-2024 URC Normal [facility] Comment on above: Performed By: #### M 100.2200, M100.678, L400.0001 ####[facility] [address] [place], [address] White blood cell (WBC) count Ordered By: Dl Neely on 10-12-2024 WBC (Bld) [#/Vol] 3.7 10*3/uL Low 4.4-11.0 [facility] Basic Metabolic Profile (BMP )on 10-11-2024 BUN/CRE 38.4 RATIO High 10-20 [facility] Comment on above: Performed By: #### L 100.0100, L500.2500 ####[facility] [address] [place], [address] Calcium [Mass/Vol] 8.2 mg/dL Normal 7.6-11.0 [facility] Comment on above: Performed By: #### L 100.0100, L500.2500 ####[facility] [address] [place], [address] Chloride [Moles/Vol] 109 mmol/L High 98-108 [facility] Comment on above: Performed By: #### L 100.0100, L500.2500 ####[facility] [address] [place], [address] CO2 [Moles/Vol] 19.2 mmol/L Low 21.0-32.0 [facility] Comment on above: Performed By: #### L 100.0100, L500.2500 ####[facility] [address] [place], [address] Creatinine [Mass/Vol] 1.59 mg/dL High 0.70-1.20 [facility] Comment on above: Performed By: #### L 100.0100, L500.2500 ####[facility] [address] [place], [address] ECRCL 58.66 ml/min Normal 50-250 [facility] Comment on above: Performed By: #### L 100.0100, L500.2500 ####[facility] [address] [place], [address] GAP 10 Normal 5-15 [facility] Comment on above: Performed By: #### L 100.0100, L500.2500 ####[facility] [address] [place], [address] GFR/1.73 sq M.predicted among non-blacks MDRD (S/P/Bld) [Vol rate/Area] 47 mL/min/{1.73_m2} Low >60 [facility] Comment on above: Result Comment: mL/m in/1.73m2 CKD-EPI Creatinine Equation (2020) Performed By: #### L 100.0100, L500.2500 ####[facility] [address] [place], [address] Glucose [Mass/Vol] 158 mg/dL High 70-99 [facility] Comment on above: Performed By: #### L 100.0100, L500.2500 ####[facility] [address] [place], [address] Potassium [Moles/Vol] 4.4 mmol/L Normal 3.3-5.1 [facility] Comment on above: Performed By: #### L 100.0100, L500.2500 ####[facility] [address] [place], [address] Sodium [Moles/Vol] 139 mmol/L Normal 133-145 [facility] Comment on above: Performed By: #### L 100.0100, L500.2500 ####[facility] [address] [place], [address] Urea nitrogen [Mass/Vol] 61 mg/dL High 4-19 [facility] Comment on above: Performed By: #### L 100.0100, L500.2500 ####[facility] [address] [place], [address] Bedside Glucoseon 10-11-2024 FINGERSTICK GLU 166 mg/dL High 74-106 [facility] Comment on above: Result Comment: PETER HINSON OF PATIENT CARE PER NURSING PROTOCOL Performed By: #### L 501.080 ####[facility] [place] [facility] [address] [place], [address] FINGERSTICK GLU 176 mg/dL High 74-106 [facility] Comment on above: Result Comment: PETER GEMENT OF PATIENT CARE PER NURSING PROTOCOL Performed By: #### L 501.080 ####[facility] [address] [place], [address] FINGERSTICK GLU 162 mg/dL High 74-106 [facility] Comment on above: Result Comment: PETER GEMENT OF PATIENT CARE PER NURSING PROTOCOL Performed By: #### L 501.080 ####[facility] [address] [place], [address] FINGERSTICK GLU 146 mg/dL High -106 [facility] Comment on above: Result Comment: PETER GEMENT OF PATIENT CARE PER NURSING PROTOCOL Performed By: #### L 501.080 ####[facility] [address] [place], [address] CBC W/Diff, Automatedon 04-0 PLT EST MOD DEC Normal ADEQ [facility] Comment on above: Performed By: #### L 100.0100, L500.2500 ####[facility] [address] [place], [address] PLT MORPH LARGE Normal [facility] Comment on above: Performed By: #### L 100.0100, L500.2500 ####[facility] [address] [place], [address] Electrocardiogram reportOrde red By: Amarjit Soliman on 10-11-2024 EKG study [facility] [address] [place] [address] 12 Lead EKG 10/10/24 1640 MR#: [id number] Acct: [id number] Name: JADON ALVAREZ Rep #:[id number] : 1955 69 From: Amarjit pedraza MD Attending Dr: Dr. Dl Neely MD Status: ADM IN Ordering Dr: Kurtis Monteiro MD Date: Location: [facility] Sex: M C Admitted: 10/10/24 Test Reason : Blood Pressure : */* mmHG Vent. Rate : 99 BPM Atrial Rate : 99 BPM P-R Int : 200 ms QRS Dur : 118 ms QT Int : 346 ms P-R-T Axes : 98 63 14 degrees QTcB Int : 444 ms Normal sinus rhythm Non-specific intra-ventricular conduction delay T wave abnormality, consider inferior ischemia Abnormal ECG Confirmed by Amarjit Soliman ([id number]), editor producer JOE ABREU ([id number]) on 10/11/2024 7:50:58 AM Referred By: EUNICE Confirmed By: Amarjit Soliman 10/11/24 0751 Date _ Amarjit Soliman MD CC: Dr. Kurtis Monteiro MD; Dr. Dl Neely MD; Kathleen Herzog MD ~ Signed [facility] Other Phone: Platelet estimateOrdered By: Monika Garcias on 10-11-2024 Platelets LM Ql (Bld) MOD JUN [facility] Platelet morphologyOrdered B y: Monika Garcias on 10-11-2024 Platelet morphology finding Nom (Bld) [facility] Platelet morphology finding Nom (Bld)Ordered By: Monika Garcias on 10-11-2024 Platelet Morphology Comment [facility] Platelets LM Ql (Bld)Ordered By: Monika Garcias on 10-11-2024 Platelet Estimate MOD JUN [facility] 12 Lead EKGon 10-10-2024 12 Lead EKG Normal [facility] Abdomen/Pelvis without Conto n 10-10-2024 Abdomen/Pelvis without Cont Normal [facility] Absolute neutrophil countOrd ered By: Kurtis Monteiro on 10-10-2024 Neutrophils (Bld) [#/Vol] 3.3 10*3/uL 2.0-7.7 [facility] Activated partial thrombopla stin time (aPTT) in platelet poor plasma by coagulation aOrdered By: Kurtis Monteiro on 10-10-2024 aPTT Coag (PPP) [Time] 35.3 s 24.1-36.2 [facility] Anion gap in Serum or Plasma Ordered By: Kurtis Monteiro on 10-10-2024 Anion gap [Moles/Vol] 14 mmol/L 5-15 [facility] BUN/creatinine ratioOrdered By: Kurtis Monteiro on 10-10-2024 Urea nitrogen/Creatinine [Mass ratio] 33.3 mg/mg High 10-20 [facility] Basophil percentageOrdered B y: Kurtis Monteiro on 10-10-2024 Basophils/100 WBC (Bld) 2.1 % High 0-[address] [facility] Bedside Glucoseon 10-10-2024 FINGERSTICK GLU 181 mg/dL High 74-106 [facility] Comment on above: Result Comment: PETER GEMENT OF PATIENT CARE PER NURSING PROTOCOL Performed By: #### L 501.080 ####[facility] [address] [place], [place], [address] FINGERSTICK GLU 161 mg/dL High 74-106 [facility] Comment on above: Result Comment: PETER GEMENT OF PATIENT CARE PER NURSING PROTOCOL Performed By: #### L 501.080 ####[facility] [address] [place], [place], [address] Bilirubin Test strip Ql (U)O rdered By: Kurtis Monteiro on 10-10-2024 Bilirubin Ql (U) Negative Negative [facility] Bilirubin, totalOrdered By: Kurtis Monteiro on 10-10-2024 Bilirubin [Mass/Vol] 0.61 mg/dL 0.00-1.30 [facility] Blood cultureOrdered By: Charity Garcias on 10-10-2024 Bacteria identified Cx Nom (Bld) Staphylococcus aureus Abnormal [facility] Bacteria identified Cx Nom (Bld) Meth. resistant Staph. aureus Abnormal [facility] Blood cultureOrdered By: Mary Monteiro on 10-10-2024 Bacteria identified Cx Nom (Bld) Negative Abnormal [facility] Bacteria identified Cx Nom (Bld) Proteus mirabilis Abnormal [facility] Blood manual differential co mment interpretation (narrative result)Ordered By: Kurtis Monteiro on 10-10-2024 Manual differential comment Kenny (Bld) [Interp] SCANNED [facility] Comment on above: LYMPHOPENIA NOTEDTHR OMBOCYTOPENIA NOTED CBC W/Diff, Automatedon 04-0 SMEAR COMMENT SCANNED Normal [facility] Comment on above: Result Comment: LYMP HOPENIA NOTEDTHROMBOCYTOPENIA NOTED Performed By: #### L 300.4310, L500.4050, L300.3900, L503.6005, M200.1000, L100.0100 ####[facility] [address] [place], [address] Carbon dioxide, total [Moles /volume] in Central venous bloodOrdered By: Kurtis Monteiro on 10-10-2024 CO2 [Moles/Vol] 20.3 mmol/L Low 21.0-32.0 [facility] Chest 1 View (Portable)on Chest 1 View (Portable) Normal [facility] Chloride assayOrdered By: Vinicius Monteiro on 10-10-2024 Chloride [Moles/Vol] 104 mmol/L 98-108 [facility] Comprehensive Metabolic Prof ilon 10-10-2024 Albumin [Mass/Vol] 3.1 g/dL Low 3.4-4.8 [facility] Comment on above: Performed By: #### L 300.4310, L500.4050, L300.3900, L503.6005, M200.1000, L100.0100 ####[facility] [address] [place], [address] Albumin/Globulin [Mass ratio] 0.9 {ratio} Normal 0.9-2.4 [facility] Comment on above: Performed By: #### L 300.4310, L500.4050, L300.3900, L503.6005, M200.1000, L100.0100 ####[facility] [address] [place], [address] ALK PHOS 105 U/L Normal 40-129 [facility] Comment on above: Performed By: #### L 300.4310, L500.4050, L300.3900, L503.6005, M200.1000, L100.0100 ####[facility] [address] [place], [address] ALT [Catalytic activity/Vol] 33 U/L Normal <=46 [facility] Comment on above: Performed By: #### L 300.4310, L500.4050, L300.3900, L503.6005, M200.1000, L100.0100 ####[facility] [address] [place], [address] AST [Catalytic activity/Vol] 53 U/L High <=37 [facility] Comment on above: Performed By: #### L 300.4310, L500.4050, L300.3900, L503.6005, M200.1000, L100.0100 ####[facility] [address] [place], [address] Bilirubin [Mass/Vol] 0.61 mg/dL Normal 0.00-1.30 [facility] Comment on above: Performed By: #### L 300.4310, L500.4050, L300.3900, L503.6005, M200.1000, L100.0100 ####[facility] [address] [place], [address] BUN/CRE 33.3 RATIO High 10-20 [facility] Comment on above: Performed By: #### L 300.4310, L500.4050, L300.3900, L503.6005, M200.1000, L100.0100 ####[facility] [address] [place], [address] Calcium [Mass/Vol] 9.0 mg/dL Normal 7.6-11.0 [facility] Comment on above: Performed By: #### L 300.4310, L500.4050, L300.3900, L503.6005, M200.1000, L100.0100 ####[facility] [address] [place], [address] Chloride [Moles/Vol] 104 mmol/L Normal 98-108 [facility] Comment on above: Performed By: #### L 300.4310, L500.4050, L300.3900, L503.6005, M200.1000, L100.0100 ####[facility] [address] [place], [address] CO2 [Moles/Vol] 20.3 mmol/L Low 21.0-32.0 [facility] Comment on above: Performed By: #### L 300.4310, L500.4050, L300.3900, L503.6005, M200.1000, L100.0100 ####[facility] [address] [place], [address] Creatinine [Mass/Vol] 2.06 mg/dL High 0.70-1.20 [facility] Comment on above: Performed By: #### L 300.4310, L500.4050, L300.3900, L503.6005, M200.1000, L100.0100 ####[facility] [address] [place], [address] ECRCL 45.27 ml/min Low 50-250 [facility] Comment on above: Performed By: #### L 300.4310, L500.4050, L300.3900, L503.6005, M200.1000, L100.0100 ####[facility] [address] [place], [address] GAP 14 Normal 5-15 [facility] Comment on above: Performed By: #### L 300.4310, L500.4050, L300.3900, L503.6005, M200.1000, L100.0100 ####[facility] [address] [place], [address] GFR/1.73 sq M.predicted among non-blacks MDRD (S/P/Bld) [Vol rate/Area] 34 mL/min/{1.73_m2} Low >60 [facility] Comment on above: Result Comment: mL/m in/1.73m2 CKD-EPI Creatinine Equation (2020) Performed By: #### L 300.4310, L500.4050, L300.3900, L503.6005, M200.1000, L100.0100 ####[facility] [address] [place], [address] Globulin (S) [Mass/Vol] 3.5 g/dL Normal 2.2-4.2 [facility] Comment on above: Performed By: #### L 300.4310, L500.4050, L300.3900, L503.6005, M200.1000, L100.0100 ####[facility] [address] [place], [address] Glucose [Mass/Vol] 178 mg/dL High 70-99 [facility] Comment on above: Performed By: #### L 300.4310, L500.4050, L300.3900, L503.6005, M200.1000, L100.0100 ####[facility] [address] [place], [address] Potassium [Moles/Vol] 4.5 mmol/L Normal 3.3-5.1 [facility] Comment on above: Performed By: #### L 300.4310, L500.4050, L300.3900, L503.6005, M200.1000, L100.0100 ####[facility] [address] [place], [address] Sodium [Moles/Vol] 138 mmol/L Normal 133-145 [facility] Comment on above: Performed By: #### L 300.4310, L500.4050, L300.3900, L503.6005, M200.1000, L100.0100 ####[facility] [address] [place], [address] T PROT 6.6 g/dL Normal 5.9-8.4 [facility] Comment on above: Performed By: #### L 300.4310, L500.4050, L300.3900, L503.6005, M200.1000, L100.0100 ####[facility] [address] [place], [place], [address] Urea nitrogen [Mass/Vol] 69 mg/dL High 4-19 [facility] Comment on above: Performed By: #### L 300.4310, L500.4050, L300.3900, L503.6005, M200.1000, L100.0100 ####[facility] [address] [place], [place], [address] Emergency Department Summary on 10-10-2024 Emergency Department Summary Normal [facility] Eosinophil percentageOrdered By: Kurtis Monteiro on 10-10-2024 Eosinophils/100 WBC (Bld) 0.0 % 0-5 [facility] Epithelial cells.squamous LM Ql (Urine sed)Ordered By: Kurtis Monteiro on 10-10-2024 Epithelial cells.squamous LM.HPF (Urine sed) [#/Area] 0 /[HPF] 0-5 [facility] Erythrocyte distribution wid th ratioOrdered By: Kurtis Monteiro on 10-10-2024 Erythrocyte distribution width (RBC) [Ratio] 16.7 % High 11.6-14.6 [facility] Erythrocyte distribution wid th standard deviationOrdered By: Kurtis Monteiro on 10-10-2024 Erythrocyte distribution width (RBC) [Entitic vol] 51.7 fL High 35.1-43.9 [facility] Estimation of creatinine jass aranceOrdered By: Kurtis Monteiro on 10-10-2024 Estimated Creatinine Clearance Calc 45.27 ml/min Low 50-250 [facility] GFR/1.73 sq M.predicted kayla g non-blacks MDRD (S/P/Bld) [Vol rate/Area]Ordered By: Kurtis Monteiro on 10-10-2024 Estimated GFR (MDRD) Non-Af Amer 34 Low >60 [facility] Comment on above: mL/min/1.73m2 CKD-EP I Creatinine Equation (2020) Glucose Ql (U)Ordered By: Vinicius Monteiro on 10-10-2024 Urine Glucose (UA) Normal mg/dl Normal [facility] H AND P Exam - Hospitaliston 10-10-2024 H&P Exam - Hospitalist Normal [facility] Hematocrit Auto (Bld) [Volum e fraction]Ordered By: Kurtis Monteiro on 10-10-2024 Hematocrit (Bld) [Volume fraction] 35.8 % Low 40-54 [facility] Hemoglobin measurementOrdere d By: Kurtis Monteiro on 10-10-2024 Hemoglobin (Bld) [Mass/Vol] 11.7 g/dL Low 13.0-16.5 [facility] Immature granulocytes/100 WB C Auto (Bld)Ordered By: Kurtis Monteiro on 10-10-2024 Immature granulocytes/100 WBC (Bld) 0.300 % 0.0-0.9 [facility] Comment on above: IG% - Immature Granu locytes (promyelocytes, myelocytes and metamyelocytes) > 1% indicates that a LEFT SHIFT is Present. Influenza virus A and B and SARS-CoV-2 (COVID-19) and Respiratory syncytial virus RNAOrdered By: Kurtis Monteiro on 10-10-2024 SARS-CoV-2 (COVID-19) RNA SUMAN+probe Ql (Unsp spec) [facility] International normalized rat io (INR) calculationOrdered By: Kurtis Monteiro on 10-10-2024 INR Coag (Bld) [Relative time] 1.6 {INR} [facility] Ketones Test strip Ql (U)Ord ered By: Kurtis Monteiro on 10-10-2024 Ketones Ql (U) Negative Negative [facility] Laboratory - Chemistry and C hemistry - challengeOrdered By: Kurtis Monteiro on 10-10-2024 AST [Catalytic activity/Vol] 53 U/L High <38 [facility] Lactic Acidon 10-10-2024 Lactate [Moles/Vol] mmol/L Normal 0.0-2.0 [facility] Comment on above: Performed By: #### L 503.6005 ####[facility] [address] [place], [place], [address] Lactate [Moles/Vol] 3.7 mmol/L Invalid Interpretation Code 0.0-2.0 [facility] Comment on above: Order Comment: Y Result Comment: Crit ical Result(s) Called at: 1649 by: BAYRON MONTES??Results read back by same. Performed By: #### L 300.4310, L500.4050, L300.3900, L503.6005, M200.1000, L100.0100 ####[facility] [address] [place], [place], [address] Lactic acid measurementOrder ed By: Kurtis Monteiro on 10-10-2024 Lactate [Moles/Vol] mmol/L 0.0-2.0 [facility] Lactate [Moles/Vol] 3.7 mmol/L High 0.0-2.0 [facility] Comment on above: Critical Result(s) C alled at: 1649 by: BAYRON PABON Results read back by same. Lymphocytes Auto (Unsp spec) [#/Vol]Ordered By: Kurtis Monteiro on 10-10-2024 Lymphocytes (Bld) [#/Vol] 0.25 10*3/uL Low 0.83-4.51 [facility] Lymphocytes/100 WBC Auto (Un sp spec)Ordered By: Kurtis Monteiro on 10-10-2024 Lymphocytes/100 WBC (Bld) 6.7 % Low 19-41 [facility] M100.678on 10-10-2024 M100.678 Pending SARS-CoV-2 (COVID 19) Negative INFLUENZA A Negative INFLUENZA B Negative RSV PCR Negative Normal [facility] Comment on above: Performed By: #### M 100.2200, M100.678, L400.0001 ####[facility] [address] [place], [address] MCV (mean corpuscular volume ) determinationOrdered By: Kurtis Monteiro on 10-10-2024 MCV (RBC) [Entitic vol] 85.2 fL 80-[address] [facility] Manual differential comment Kenny (Bld) [Interp]Ordered By: Kurtis Monteiro on 10-10-2024 Differential Comment SCANNED [facility] Comment on above: LYMPHOPENIA NOTEDTHR OMBOCYTOPENIA NOTED Mean corpuscular hemoglobin (MCH) determinationOrdered By: Kurtis Monteiro on 10-10-2024 MCH (RBC) [Entitic mass] 27.9 pg 27.0-32.0 [facility] Mean corpuscular hemoglobin concentration (MCHC) determinationOrdered By: Kurtis Monteiro on 10-10-2024 MCHC (RBC) [Mass/Vol] 32.7 g/dL 32-36 [facility] Mean platelet volume determi nationOrdered By: Kurtis Monteiro on 10-10-2024 Mean Platelet Volume TNP [facility] Comment on above: Test not performed Microorganism identified Cx Nom (Unsp spec)Ordered By: Monika Garcias on 10-10-2024 Bacteria Detection (PCR) Meth. resistant Staph. aureus Abnormal [facility] Microscopic analysis of urin e for red blood cells (RBC)Ordered By: Kurtis Monteiro on 10-10-2024 Microscopic analysis of urine for red blood cells (RBC) > 100 SEEN /hpf 0-5 [facility] Urine RBC > 100 SEEN /hpf 0-5 [facility] Monocyte percentageOrdered B y: Kurits Monteiro on 10-10-2024 Monocytes/100 WBC (Bld) 3.2 % 0-[address] [facility] Mucus LM Ql (Urine sed)Order ed By: Kurtis Monteiro on 10-10-2024 Mucus Ql (Urine sed) 0 SEEN /hpf [facility] Neutrophil percentageOrdered By: Kurtis Monteiro on 10-10-2024 Neutrophils/100 WBC (Bld) 87.7 % High 47-70 [facility] Nitrite Test strip Ql (U)Ord ered By: Kurtis Monteiro on 10-10-2024 Nitrite Ql (U) Negative Negative [facility] No Panel InformationOrdered By: Kurtis Monteiro on 10-10-2024 53 U/L High <38 [facility] Nucleated red blood cell per centageOrdered By: Kurtis Monteiro on 10-10-2024 Nucleated RBC/100 WBC (Bld) [Ratio] 0 % 0-5 [facility] Organism identificationOrder ed By: Monika Garcias on 10-10-2024 Microorganism identified Cx Nom (Unsp spec) Meth. resistant Staph. aureus Abnormal [facility] Partial Thromboplast Timeon 10-10-2024 aPTT Coag (Bld) [Time] 35.3 s Normal 24.1-36.2 [facility] Comment on above: Performed By: #### L 300.4310, L500.4050, L300.3900, L503.6005, M200.1000, L100.0100 ####[facility] [address] [place], [place], [id number] Platelet countOrdered By: Vinicius Monteiro on 10-10-2024 Platelets (Bld) [#/Vol] 59 10*3/uL Low 150-[address] [facility] Potassium (Unsp spec) [Mass/ Vol]Ordered By: Kurtis Monteiro on 10-10-2024 Potassium [Moles/Vol] 4.5 mmol/L 3.3-5.1 [facility] Protein Test strip Ql (U)Ord ered By: Kurtis Monteiro on 10-10-2024 Protein Ql (U) 500 mg/dl High Negative [facility] Prothrombin Time w/INRon INR Coag (PPP) [Relative time] 1.6 {INR} Normal [facility] Comment on above: Performed By: #### L 300.4310, L500.4050, L300.3900, L503.6005, M200.1000, L100.0100 ####[facility] [address] [place], [address] PT Coag (PPP) [Time] 19.6 s High 11.7-14.9 [facility] Comment on above: Performed By: #### L 300.4310, L500.4050, L300.3900, L503.6005, M200.1000, L100.0100 ####[facility] [address] [place], [address] Prothrombin timeOrdered By: Kurtis Monteiro on 10-10-2024 PT Coag (PPP) [Time] 19.6 s High 11.7-14.9 [facility] RBC Auto (Bld) [#/Vol]Ordere d By: Kurtis Monteiro on 10-10-2024 RBC (Bld) [#/Vol] 4.20 10*6/uL Low 4.6-6.2 [facility] Serum creatinine measurement (mass/volume)Ordered By: Kurtis Monteiro on 10-10-2024 Creatinine [Mass/Vol] 2.06 mg/dL High 0.70-1.20 [facility] Serum globulin measurementOr dered By: Kurtis Monteiro on 10-10-2024 Globulin (S) [Mass/Vol] 3.5 g/dL 2.2-4.[address] [facility] Serum glucose measurement (m ass/volume)Ordered By: Kurtis Monteiro on 10-10-2024 Glucose [Mass/Vol] 178 mg/dL High 70-99 [facility] Serum or plasma alanine matson otransferase (ALT) measurementOrdered By: Kurtis Monteiro on 10-10-2024 ALT [Catalytic activity/Vol] 33 U/L <47 [facility] Serum or plasma albumin isidro urement (mass/volume)Ordered By: Kurtis Monteiro on 10-10-2024 Albumin [Mass/Vol] 3.1 g/dL Low 3.4-4.8 [facility] Serum or plasma albumin/glob ulin mass ratioOrdered By: Kurtis Monteiro on 10-10-2024 Albumin/Globulin [Mass ratio] 0.9 {ratio} 0.9-2.4 [facility] Serum or plasma alkaline yumiko sphatase measurementOrdered By: Kurtis Monteiro on 10-10-2024 ALP [Catalytic activity/Vol] 105 U/L 40-129 [facility] Serum or plasma calcium isidro urement (mass/volume)Ordered By: Kurtis Monteiro on 10-10-2024 Calcium [Mass/Vol] 9.0 mg/dL 7.6-11.0 [facility] Serum or plasma urea nitroge n measurement (mass/volume)Ordered By: Kurtis Monteiro on 10-10-2024 Urea nitrogen [Mass/Vol] 69 mg/dL High 4-19 [facility] Sodium levelOrdered By: Kurtis Monteiro on 10-10-2024 Sodium [Moles/Vol] 138 mmol/L 133-145 [facility] Squamous epithelial cells de tection in urine sediment by light microscopyOrdered By: Kurtis Monteiro on 10-10-2024 Epithelial cells.squamous LM Ql (Urine sed) 0 SEEN /hpf 0-5 [facility] Total proteinOrdered By: Mary Monteiro on 10-10-2024 Protein [Mass/Vol] 6.6 g/dL 5.9-8.4 [facility] Urinalysis, Completeon 10-10 BACTERIA 2+ /hpf Normal None Seen [facility] Comment on above: Order Comment: COLOR OF URINE MAY AFFECT DIPSTICK RESULTS.APPRENTICE FUNERAL DIRECTOR TO SPECIFY Performed By: #### M 100.2200, M100.678, L400.0001 ####[facility] [address] [place], [address] RBC > 100 SEEN Normal 0-5 [facility] Comment on above: Order Comment: COLOR OF URINE MAY AFFECT DIPSTICK RESULTS.APPRENTICE FUNERAL DIRECTOR TO SPECIFY Performed By: #### M 100.2200, M100.678, L400.0001 ####[facility] [address] [place], [address] WBC 5-10 SEEN Normal 0-5 [facility] Comment on above: Order Comment: COLOR OF URINE MAY AFFECT DIPSTICK RESULTS.APPRENTICE FUNERAL DIRECTOR TO SPECIFY Performed By: #### M 100.2200, M100.678, L400.0001 ####[facility] [address] [place], [address] EPI,SQUAMOUS 0 SEEN Normal 0-5 [facility] Comment on above: Order Comment: COLOR OF URINE MAY AFFECT DIPSTICK RESULTS.APPRENTICE FUNERAL DIRECTOR TO SPECIFY Performed By: #### M 100.2200, M100.678, L400.0001 ####[facility] [address] [place], [address] Mucus Ql (Urine sed) 0 SEEN Normal [facility] Comment on above: Order Comment: COLOR OF URINE MAY AFFECT DIPSTICK RESULTS.APPRENTICE FUNERAL DIRECTOR TO SPECIFY Performed By: #### M 100.2200, M100.678, L400.0001 ####[facility] [address] [place], [address] Urine blood detectionOrdered By: Kurtis Monteiro on 10-10-2024 Urine Occult Blood 250 /ul High Negative [facility] Urine clarityOrdered By: Mary Monteiro on 10-10-2024 Clarity (U) Cloudy Clear [facility] Urine color determinationOrd ered By: Kurtis Monteiro on 10-10-2024 Color (U) Red Yellow [facility] Urine cultureOrdered By: Mary Monteiro on 10-10-2024 Bacteria identified Cx Nom (U) Proteus mirabilis Abnormal [facility] Urine glucose detectionOrder ed By: Kurtis Monteiro on 10-10-2024 Glucose Ql (U) Normal mg/dl Normal [facility] Urine leukocyte esterase det ection by dipstickOrdered By: Kurtis Monteiro on 10-10-2024 Leukocyte esterase Test strip Ql (U) 500 /ul High Negative [facility] Urine pHOrdered By: Kurtis gallardo on 10-10-2024 pH (U) 9.0 [pH] 5.0 - 8.0 [facility] Urine sediment bacteria coun t by microscopy (number/high power field)Ordered By: Kurtis Monteiro on 10-10-2024 Bacteria LM.HPF (Urine sed) [#/Area] 2 /[HPF] None Seen [facility] Urine specific gravity measu rementOrdered By: Kurtis Monteiro on 10-10-2024 Specific gravity (U) [Rel density] 1.015 1.002-1.030 [facility] Urine urobilinogen measureme ntOrdered By: Kurtis Eunice on 10-10-2024 Urobilinogen Ql (U) Normal mg/dl Normal [facility] Urobilinogen Ql (U)Ordered B y: Kurtis Monteiro on 10-10-2024 Urine Urobilinogen Normal mg/dl Normal [facility] White blood cell (WBC) count Ordered By: Kurtis Monteiro on 10-10-2024 WBC (Bld) [#/Vol] 3.7 10*3/uL Low 4.4-11.0 [facility] White blood cell countOrdere d By: Kurtis Monteiro on 10-10-2024 Urine WBC 5-10 SEEN /hpf 0-5 [facility] White blood cell count 5-10 SEEN /hpf 0-5 [facility] aPTT Coag (PPP) [Time]Ordere d By: Kurtis Monteiro on 10-10-2024 aPTT Coag (Bld) [Time] 35.3 s 24.1-36.2 [facility] CNOVon 09-22-2024 CNOV Office Visit ([id number] 2) JADON ALVAREZ ([id number]) 1955 M Date Time Provider Department 09/22/24 8:40 AM ISABELA CAMPBELL [id number] During your visit today, we recorded the following information about you: Pulse Blood pressure 56/minute 134/66 Isabela Campbell, ORDERLIES TEACHER.GAS PROVER 09/22/2024 9:44 AM Signed [facility] ESTABLISHED PATIENT FOLLOW-UP NOTE PATIENT: Jadon Alvarez (69 year old) PCP: Ignacia Reyna, DO Assessment AND Plan 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 Failed tamsulosin Previously Not surgical candidate Monthly martines changes recommended. Wishes to speak with Dr. Weller Regarding repeat procedure. Discussed would need cardiac and pcp clearance prior to any procedure. Patient tearful in office today. Orders: MARTINES - CHANGE FOLLOW UP: Return for dr. Downs to discuss procedure. CHIEF COMPLAINT: Patient presents with: Difficulty Urinating HISTORY OF PRESENT ILLNESS: Prior notes were reviewed. Pt known to Dr. Downs. Hx of BPH. Failed tamsulosin. Chronic martines Last changed 07/2024. Treated with cefdinir for UTI. Started on antibiotic 09/17/24. Reports he can not tolerate/handle martines catheter anymore and it is ruining his life. He is tearful in office today. REVIEW OF SYSTEMS GENERAL:denies unintentional weight loss, malaise or fevers. NEUROLOGIC: pt is alert and oriented GASTROINTESTINAL: No nausea, vomiting, or diarrhea GENITOURINARY: See HPI MUSCULOSKELETAL: Negative for joint pain or swelling, back pain or muscle pain SKIN: Negative for lesions, rash, and itching. ALLERGIES: ALLERGIES Allergen Reactions Ibuprofen Unknown MEDICATIONS: CEFDINIR ORAL Take 300 mg by mouth two times a day. amLODIPine (NORVASC) 5 mg tablet Take 1 tablet by mouth every afternoon. bumetanide (BUMEX) 1 mg tablet TAKE 12 TABLET BY MOUTH TWICE DAILY ELIQUIS 5 mg tab(s) Take 1 tablet by mouth every 12 hours. ferrous sulfate 325 mg (65 mg iron) EC tablet tamsulosin HCl (FLOMAX ORAL) Flomax Oral MOUNJARO 5 mg/0.5 mL pen injector INJECT 5MGS SUBCUTANEOUS EVERY WEEK ROTATE INJECTION SITES traZODone (DESYREL) 50 mg tablet oxyCODONE-acetaminophen (PERCOCET) 5-325 mg tablet TAKE ONE TABLET BY MOUTH EVERY SIX HOURS NEEDED FOR PAIN FOR 3 DAYS SYMBICORT 160-4.5 mcg/actuation inhaler INHALE 2 PUFFS EVERY DAY nystatin (MYCOSTATIN) powder Apply to affected area four times daily. gabapentin (NEURONTIN) 300 mg capsule Take 300 mg by mouth three times a day. atorvastatin (LIPITOR) 20 mg tablet Take 20 mg by mouth once daily. aspirin 81 mg cap Take by mouth. PAST HISTORY: PAST MEDICAL HISTORY Diagnosis Date Atrial fibrillation (HCC) BPH with obstruction/lower urinary tract symptoms CKD (chronic kidney disease) stage 2, GFR 60-89 ml/min Diabetes mellitus (HCC) Renal carcinoma, left (HCC) PAST SURGICAL HISTORY Procedure Laterality Date COLON VIA STOMA RESECTION REPAIR INCISIONAL HERNIA,REDUCIBLE History reviewed. No pertinent family history. Social History Tobacco Use Smoking status: Former Current packs/day: 0.00 Types: Cigarettes Quit date: 2003 Years since quittin.2 Smokeless tobacco: Never Vaping Use Vaping status: Never Used Substance Use Topics Alcohol use: Not Currently Drug use: Never PHYSICAL EXAMINATION: BP 134/66 Pulse (!) 56 SpO2 99% Genitourinary: MALE EXAM: martines catheter in place draining clear yellow Constitutional: In no acute distress. Well appearing. Respiratory: Normal respiratory effort without use of accessory muscles. Musculoskeletal: No LE edema or tenderness; Normal gait and station Cardiovascular: Regular rate Gastrointestinal: Soft, non-distended, non-tender, denies CVA tenderness Laboratory: Creatinine Date Value Ref Range Status 11/25/2023 1.36 0.50 - 1.40 mg/dL Final Comment: Patients receiving either N-Acetylcysteine (NAC) or Metamizole prior to venipuncture, may have falsely depressed results. I have reviewed the problem list, family history, and social history documented by my ancillary staff. Isabela Campbell APRN.GAS PROVER Allergies As of Date: 09/22/2024 Noted Allergy Reaction IBUPROFEN 01/12/2024 16 - Unknown Date Reviewed: 09/22/2024 Reviewed by: Yokasta Gonzalez OCCA - Fully Assessed Reason for Visit: Difficulty Urinating [3905] Primary Visit Diagnosis:BPH with obstruction/lower urinary tract symptoms [N40.1, N13.8] Other Visit Diagnosis:Chronic retention of urine [R33.9] Order(s):MARTINES - CHANGE [[id number]] Order #: [id number]: 1 Prescriptions as of 09/22/2024 - CEFDINIR ORAL Take (more content not included)... Normal [facility] Culture, Blood (WB)on 2024 [facility] Blood cultures x2, f rom two different sites No growth in 5 days. Normal [facility] Comment on above: Performed By: #### M 200.1000 ####[facility] [address] [place], [place], [id number] [facility] Blood cultures x2, f rom two different sites No growth in 5 days. Normal [facility] Comment on above: Performed By: #### M 200.1000 ####[facility] [address] [place], [place], [id number] [facility] JAD[facility]VARE[facility] ([id number]) 1955 Date Time Provider Department 09/20/24 ISABELA CAMPBELL During your visit today, we recorded the following information about you: Yokasta Gonzalez OCCA 09/20/2024 10:02 AM Signed [facility] Last documentation of pt's 16FR catheter change is July 2024. Pt is currently being treated with cefdinir for a UTI. Pt started abx 09/17/2024 and will complete 09/24/2024. His fu with Isabela Campbell is 09/22/2024. Yokasta Gonzalez MA Allergies As of Date: 09/20/2024 Noted Allergy Reaction IBUPROFEN 01/12/2024 16 - Unknown Date Reviewed: 02/17/2024 Reviewed by: Shar Downs MD - Fully Assessed Reason for Visit: Refill Request [94] Prescriptions as of 09/21/2024 - amLODIPine (NORVASC) 5 mg tablet Take 1 tablet by mouth every afternoon. - bumetanide (BUMEX) 1 mg tablet TAKE 12 TABLET BY MOUTH TWICE DAILY - ELIQUIS 5 mg tab(s) Take 1 tablet by mouth every 12 hours. - ferrous sulfate 325 mg (65 mg iron) EC tablet - tamsulosin HCl (FLOMAX ORAL) Flomax Oral - MOUNJARO 5 mg/0.5 mL pen injector INJECT 5MGS SUBCUTANEOUS EVERY WEEK ROTATE INJECTION SITES - traZODone (DESYREL) 50 mg tablet - oxyCODONE-acetaminophen (PERCOCET) 5-325 mg tablet TAKE ONE TABLET BY MOUTH EVERY SIX HOURS NEEDED FOR PAIN FOR 3 DAYS - SYMBICORT 160-4.5 mcg/actuation inhaler INHALE 2 PUFFS EVERY DAY - nystatin (MYCOSTATIN) powder Apply to affected area four times daily. - gabapentin (NEURONTIN) 300 mg capsule Take 300 mg by mouth three times a day. - atorvastatin (LIPITOR) 20 mg tablet Take 20 mg by mouth once daily. - aspirin 81 mg cap Take by mouth. Problem List As Of Date: 09/20/2024 (None) Encounter Status:Closed by YOKASTA GONZALEZ on 09/21/24 Normal [facility] Urine Cultureon 09-20-2024 URC Normal [facility] Comment on above: Performed By: #### M 100.8443 ####[facility] [address] [place], [place], [id number] 12 Lead EKGon 09-16-2024 12 Lead EKG Normal [facility] Abdomen/Pelvis W IV Cont ONL Yon 09-16-2024 Abdomen/Pelvis W IV Cont ONLY Normal [facility] Absolute lymphocyte countOrd ered By: Juan Guerline on 09-16-2024 Lymphocytes Auto (Unsp spec) [#/Vol] 1.64 10*3/uL 0.83-4.51 [facility] Absolute neutrophil countOrd ered By: [facility] on 09-16-2024 Neutrophils (Bld) [#/Vol] 4.6 10*3/uL 2.0-7.7 [facility] Anion gap in Serum or Plasma Ordered By: Remus Cunha on 09-16-2024 Anion gap [Moles/Vol] 10 mmol/L 5-15 [facility] Automated lymphocyte count a s percentage of total leukocytesOrdered By: Juan Cunha on 09-16-2024 Lymphocytes/100 WBC Auto (Unsp spec) 22.5 % 19-41 [facility] BUN/creatinine ratioOrdered By: [facility] on 09-16-2024 Urea nitrogen/Creatinine [Mass ratio] 19.0 mg/mg 10-20 [facility] Basic Metabolic Profile (BMP )on 09-16-2024 BUN/CRE 19.0 RATIO Normal 10-20 [facility] Comment on above: Performed By: #### L 100.0100, L503.6005, L500.2500 ####[facility] [address] [place], [address] Calcium [Mass/Vol] 9.2 mg/dL Normal 7.6-11.0 [facility] Comment on above: Performed By: #### L 100.0100, L503.6005, L500.2500 ####[facility] [address] [place], [address] Chloride [Moles/Vol] 103 mmol/L Normal 98-108 [facility] Comment on above: Performed By: #### L 100.0100, L503.6005, L500.2500 ####[facility] [address] [place], [address] CO2 [Moles/Vol] 26.6 mmol/L Normal 21.0-32.0 [facility] Comment on above: Performed By: #### L 100.0100, L503.6005, L500.2500 ####[facility] [address] [place], [address] Creatinine [Mass/Vol] 1.46 mg/dL High 0.70-1.20 [facility] Comment on above: Performed By: #### L 100.0100, L503.6005, L500.2500 ####[facility] [address] [place], [address] ECRCL 63.94 ml/min Normal 50-250 [facility] Comment on above: Performed By: #### L 100.0100, L503.6005, L500.2500 ####[facility] [address] [place], [address] GAP 10 Normal 5-15 [facility] Comment on above: Performed By: #### L 100.0100, L503.6005, L500.2500 ####[facility] [address] [place], [address] GFR/1.73 sq M.predicted among non-blacks MDRD (S/P/Bld) [Vol rate/Area] 52 mL/min/{1.73_m2} Low >60 [facility] Comment on above: Result Comment: mL/m in/1.73m2 CKD-EPI Creatinine Equation (2020) Performed By: #### L 100.0100, L503.6005, L500.2500 ####[facility] [address] [place], [address] Glucose [Mass/Vol] 179 mg/dL High 70-99 [facility] Comment on above: Performed By: #### L 100.0100, L503.6005, L500.2500 ####[facility] [address] [place], [address] Potassium [Moles/Vol] 4.7 mmol/L Normal 3.3-5.1 [facility] Comment on above: Performed By: #### L 100.0100, L503.6005, L500.2500 ####[facility] [address] [place], [address] Sodium [Moles/Vol] 140 mmol/L Normal 133-145 [facility] Comment on above: Performed By: #### L 100.0100, L503.6005, L500.2500 ####[facility] [address] [place], [address] Urea nitrogen [Mass/Vol] 28 mg/dL High 4-19 [facility] Comment on above: Performed By: #### L 100.0100, L503.6005, L500.2500 ####[facility] [address] [place], [address] Basophil percentageOrdered B y: Remus Ungur on 09-16-2024 Basophils/100 WBC (Bld) 0.5 % 0-[address] [facility] Bilirubin Test strip Ql (U)O rdered By: Remus Ungur on 09-16-2024 Bilirubin Ql (U) Negative Negative [facility] Blood cultureOrdered By: Rem us Ungur on 09-16-2024 Bacteria identified Cx Nom (Bld) No growth in 5 days. [facility] Bacteria identified Cx Nom (Bld) No growth in 5 days. [facility] Brain/Head without Contrasto n 09-16-2024 Brain/Head without Contrast Normal [facility] CBC W/Diff, Automatedon 03- Absolute Lymph 1.64 X10 3/uL Normal 0.83-4.51 [facility] Comment on above: Performed By: #### L 100.0100, L503.6005, L500.2500 ####[facility] [address] [place], [address] Absolute Neut 4.6 X10 3/uL Normal 2.0-7.7 [facility] Comment on above: Performed By: #### L 100.0100, L503.6005, L500.2500 ####[facility] [address] [place], [address] Basophils/100 WBC (Bld) 0.5 % Normal 0-[address] [facility] Comment on above: Performed By: #### L 100.0100, L503.6005, L500.2500 ####[facility] [address] [place], [address] Eosinophils/100 WBC (Bld) 4.0 % Normal 0-5 [facility] Comment on above: Performed By: #### L 100.0100, L503.6005, L500.2500 ####[facility] [address] [place], [address] Erythrocyte distribution width (RBC) [Ratio] 16.2 % High 11.6-14.6 [facility] Comment on above: Performed By: #### L 100.0100, L503.6005, L500.2500 ####[facility] [address] [place], [address] Hematocrit (Bld) [Volume fraction] 38.2 % Low 40-54 [facility] Comment on above: Performed By: #### L 100.0100, L503.6005, L500.2500 ####[facility] [address] [place], [address] Hemoglobin (Bld) [Mass/Vol] 12.3 g/dL Low 13.0-16.5 [facility] Comment on above: Performed By: #### L 100.0100, L503.6005, L500.2500 ####[facility] [address] [place], [address] IG% 0.300 Normal 0.0-0.9 [facility] Comment on above: Result Comment: IG% - Immature Granulocytes (promyelocytes, myelocytes andmetamyelocytes) > 1% indicates that a LEFT SHIFT is Present. Performed By: #### L 100.0100, L503.6005, L500.2500 ####[facility] [address] [place], [address] Lymphocytes/100 WBC (Bld) 22.5 % Normal 19-41 [facility] Comment on above: Performed By: #### L 100.0100, L503.6005, L500.2500 ####[facility] [address] [place], [address] MCH (RBC) [Entitic mass] 27.7 pg Normal 27.0-32.0 [facility] Comment on above: Performed By: #### L 100.0100, L503.6005, L500.2500 ####[facility] [address] [place], [address] MCHC (RBC) [Mass/Vol] 32.2 g/dL Normal 32-36 [facility] Comment on above: Performed By: #### L 100.0100, L503.6005, L500.2500 ####[facility] [address] [place], [address] MCV (RBC) [Entitic vol] 86.0 fL Normal 80-[address] [facility] Comment on above: Performed By: #### L 100.0100, L503.6005, L500.2500 ####[facility] [address] [place], [address] Monocytes/100 WBC (Bld) 9.6 % Normal 0-[address] [facility] Comment on above: Performed By: #### L 100.0100, L503.6005, L500.2500 ####[facility] [address] [place], [address] Neutrophils/100 WBC (Bld) 63.1 % Normal 47-70 [facility] Comment on above: Performed By: #### L 100.0100, L503.6005, L500.2500 ####[facility] [address] [place], [address] Nucleated RBC (Bld) [#/Vol] 0 10*3/uL Normal 0-5 [facility] Comment on above: Performed By: #### L 100.0100, L503.6005, L500.2500 ####[facility] [address] [place], [address] Platelet mean volume (Bld) [Entitic vol] 11.9 fL Normal 6.2-12.0 [facility] Comment on above: Performed By: #### L 100.0100, L503.6005, L500.2500 ####[facility] [address] [place], [address] Platelets (Bld) [#/Vol] 205 10*3/uL Normal 150-450 [facility] Comment on above: Performed By: #### L 100.0100, L503.6005, L500.2500 ####[facility] [address] [place], [address] RBC (Bld) [#/Vol] 4.44 10*6/uL Low 4.6-6.2 [facility] Comment on above: Performed By: #### L 100.0100, L503.6005, L500.2500 ####[facility] [address] [place], [address] RDW SD 51.2 fl High 35.1-43.9 [facility] Comment on above: Performed By: #### L 100.0100, L503.6005, L500.2500 ####[facility] [address] [place], [address] WBC (Bld) [#/Vol] 7.3 10*3/uL Normal 4.4-11.0 [facility] Comment on above: Performed By: #### L 100.0100, L503.6005, L500.2500 ####[facility] [address] [place], [address] Carbon dioxide, total [Moles /volume] in Central venous bloodOrdered By: Juan Cunha on 09-16-2024 CO2 [Moles/Vol] 26.6 mmol/L 21.0-32.0 [facility] Chest 1 View (Portable)on Chest 1 View (Portable) Normal W [facility] Chloride assayOrdered By: Emy Cunha on 09-16-2024 Chloride [Moles/Vol] 103 mmol/L 98-108 [facility] Emergency Department Summary on 09-16-2024 Emergency Department Summary Normal [facility] Eosinophil percentageOrdered By: Juan Cunha on 09-16-2024 Eosinophils/100 WBC (Bld) 4.0 % 0-5 [facility] Epithelial cells.squamous LM Ql (Urine sed)Ordered By: Juan Cunha on 09-16-2024 Epithelial cells.squamous LM.HPF (Urine sed) [#/Area] 0 /[HPF] 0-5 [facility] Erythrocyte distribution wid th ratioOrdered By: Juan Cunha on 09-16-2024 Erythrocyte distribution width (RBC) [Ratio] 16.2 % High 11.6-14.6 [facility] Erythrocyte distribution wid th standard deviationOrdered By: Juan Cunha on 09-16-2024 Erythrocyte distribution width (RBC) [Entitic vol] 51.2 fL High 35.1-43.9 [facility] Erythrocyte distribution width (RBC) [Ratio] 51.2 fl High 35.1-43.9 [facility] Estimation of creatinine jass aranceOrdered By: Juan Cunha on 09-16-2024 Estimated Creatinine Clearance Calc 63.94 ml/min 50-250 [facility] GFR/1.73 sq M.predicted kayla g non-blacks MDRD (S/P/Bld) [Vol rate/Area]Ordered By: Juan Cunha on 09-16-2024 Estimated GFR (MDRD) Non-Af Amer 52 Low >60 [facility] Comment on above: mL/min/1.73m2 CKD-EP I Creatinine Equation (2020) Glomerular filtration rate ( GFR) estimation/1.73 sq m using serum, plasma, or whole bOrdered By: Juan Cunha on 09-16-2024 GFR/1.73 sq M.predicted among non-blacks MDRD (S/P/Bld) [Vol rate/Area] 52 mL/min/{1.73_m2} Low >60 [facility] Comment on above: mL/min/1.73m2 CKD-EP I Creatinine Equation (2020) Glucose Ql (U)Ordered By: Emy Cunha on 09-16-2024 Urine Glucose (UA) Normal mg/dl Normal [facility] Hematocrit Auto (Bld) [Volum e fraction]Ordered By: Juan Cunha on 09-16-2024 Hematocrit (Bld) [Volume fraction] 38.2 % Low 40-54 [facility] Hemoglobin measurementOrdere d By: Juan Cunha on 09-16-2024 Hemoglobin (Bld) [Mass/Vol] 12.3 g/dL Low 13.0-16.5 [facility] Immature granulocytes/100 WB C Auto (Bld)Ordered By: Juan Cunha on 09-16-2024 Immature granulocytes/100 WBC (Bld) 0.300 % 0.0-0.9 [facility] Comment on above: IG% - Immature Granu locytes (promyelocytes, myelocytes and metamyelocytes) > 1% indicates that a LEFT SHIFT is Present. Influenza virus A and B and SARS-CoV-2 (COVID-19) and Respiratory syncytial virus RNAOrdered By: Juan Cunha on 09-16-2024 SARS-CoV-2 (COVID-19) RNA SUMAN+probe Ql (Unsp spec) [facility] Ketones Test strip Ql (U)Ord ered By: Juan Cunha on 09-16-2024 Ketones Ql (U) Negative Negative [facility] Lactic Acidon 09-16-2024 Lactate [Moles/Vol] 1.2 mmol/L Normal 0.0-2.0 [facility] Comment on above: Order Comment: Y Performed By: #### L 100.0100, L503.6005, L500.2500 ####[facility] [address] [facility] [place], [place], [id number] Lactic acid measurementOrder ed By: Juan Cunha on 09-16-2024 Lactate [Moles/Vol] 1.2 mmol/L 0.0-2.0 [facility] Lymphocytes Auto (Unsp spec) [#/Vol]Ordered By: Juan Cunha on 09-16-2024 Lymphocytes (Bld) [#/Vol] 1.64 10*3/uL 0.83-4.51 [facility] Lymphocytes/100 WBC Auto (Un sp spec)Ordered By: Juan Cunha on 09-16-2024 Lymphocytes/100 WBC (Bld) 22.5 % 19-41 [facility] M100.678on 09-16-2024 M100.678 SARS-CoV-2 (COVID 19 ) Negative INFLUENZA A Negative INFLUENZA B Negative RSV PCR Negative Normal [facility] Comment on above: Performed By: #### M 100.678 ####[facility] [address] [facility] [place], [place], [address] MCV (mean corpuscular volume ) determinationOrdered By: Juan Cunah on 09-16-2024 MCV (RBC) [Entitic vol] 86.0 fL 80-94 [facility] Mean corpuscular hemoglobin (MCH) determinationOrdered By: Juan Cunha on 09-16-2024 MCH (RBC) [Entitic mass] 27.7 pg 27.0-32.0 [facility] Mean corpuscular hemoglobin concentration (MCHC) determinationOrdered By: Juan Cunha on 09-16-2024 MCHC (RBC) [Mass/Vol] 32.2 g/dL 32-36 [facility] Mean platelet volume determi nationOrdered By: Juan Cunha on 09-16-2024 Platelet mean volume (Bld) [Entitic vol] 11.9 fL 6.2-12.0 [facility] Microscopic analysis of urin e for red blood cells (RBC)Ordered By: Juan Cunha on 09-16-2024 Microscopic analysis of urine for red blood cells (RBC) 0-5 SEEN /hpf 0-5 [facility] Urine RBC 0-5 SEEN /hpf 0-5 [facility] Monocyte percentageOrdered B y: Juan Unghosea on 09-16-2024 Monocytes/100 WBC (Bld) 9.6 % 0-[address] [facility] Mucus LM Ql (Urine sed)Order ed By: Rem Unghosea on 09-16-2024 Mucus Ql (Urine sed) 3+ /hpf [facility] Neutrophil percentageOrdered By: Remus Ungur on 09-16-2024 Neutrophils/100 WBC (Bld) 63.1 % 47-70 [facility] Nitrite Test strip Ql (U)Ord ered By: Remus Ungur on 09-16-2024 Nitrite Ql (U) Positive High Negative [facility] Nucleated red blood cell per centageOrdered By: Rem Unghosea on 09-16-2024 Nucleated RBC/100 WBC (Bld) [Ratio] 0 % 0-5 [facility] Platelet countOrdered By: Emy Cunha on 09-16-2024 Platelets (Bld) [#/Vol] 205 10*3/uL 150-450 [facility] Potassium (Unsp spec) [Mass/ Vol]Ordered By: Rem Unghosea on 09-16-2024 Potassium [Moles/Vol] 4.7 mmol/L 3.3-5.1 [facility] Potassium measurement (mass/ volume)Ordered By: Juan Unghosea on 09-16-2024 Potassium (Unsp spec) [Mass/Vol] 4.7 mmol/L 3.3-5.1 [facility] Protein Test strip Ql (U)Ord ered By: Remus Ungur on 09-16-2024 Protein Ql (U) 30 mg/dl High Negative [facility] RBC Auto (Bld) [#/Vol]Ordere d By: Remus Ungur on 09-16-2024 RBC (Bld) [#/Vol] 4.44 10*6/uL Low 4.6-6.2 [facility] Serum creatinine measurement (mass/volume)Ordered By: Rem Unghosea on 09-16-2024 Creatinine [Mass/Vol] 1.46 mg/dL High 0.70-1.20 [facility] Serum glucose measurement (m ass/volume)Ordered By: Lucius Unghosea on 09-16-2024 Glucose [Mass/Vol] 179 mg/dL High 70-99 [facility] Serum or plasma calcium isidro urement (mass/volume)Ordered By: Remus Ungur on 09-16-2024 Calcium [Mass/Vol] 9.2 mg/dL 7.6-11.0 [facility] Serum or plasma urea nitroge n measurement (mass/volume)Ordered By: Remus Unghosea on 09-16-2024 Urea nitrogen [Mass/Vol] 28 mg/dL High 4-19 [facility] Sodium levelOrdered By: Remu s Unghosea on 09-16-2024 Sodium [Moles/Vol] 140 mmol/L 133-145 [facility] Spine Cervical without Contr ason 09-16-2024 Spine Cervical without Contras Normal [facility] Squamous epithelial cells de tection in urine sediment by light microscopyOrdered By: Remus Unghosea on 09-16-2024 Epithelial cells.squamous LM Ql (Urine sed) 0 SEEN /hpf 0-5 [facility] Triple phosphate crystals LM Ql (Urine sed)Ordered By: Remus Unghosea on 09-16-2024 Urine Triple Phosphate Crystals 2+ /hpf [facility] Triple phosphate crystals de tection in urine sediment by light microscopyOrdered By: Remus Unghosea on 09-16-2024 Triple phosphate crystals LM Ql (Urine sed) 2+ /hpf [facility] Urinalysis, Completeon 09-16 BACTERIA 4+ /hpf Normal None Seen [facility] Comment on above: Order Comment: VIVIANA CTOR TO SPECIFY Performed By: #### L 400.0001 ####[facility] [address] [place], [place], [id number] Mucus Ql (Urine sed) 3+ /hpf Normal [facility] Comment on above: Order Comment: VIVIANA CTOR TO SPECIFY Performed By: #### L 400.0001 ####[facility] [address] [place], [place], [id number] RBC 0-5 SEEN Normal 0-5 [facility] Comment on above: Order Comment: VIVIANA CTOR TO SPECIFY Performed By: #### L 400.0001 ####[facility] [address] [place], [address] TRIPLE PHOS 2+ /hpf Normal [facility] Comment on above: Order Comment: VIVIANA CTOR TO SPECIFY Performed By: #### L 400.0001 ####[facility] [address] [place], [address] WBC 50-100 SEEN Normal 0-5 [facility] Comment on above: Order Comment: VIVIANA CTOR TO SPECIFY Performed By: #### L 400.0001 ####[facility] [address] [place], [address] BILIRUBIN URINE Negative Normal Negative [facility] Comment on above: Order Comment: VIVIANA CTOR TO SPECIFY Performed By: #### L 400.0001 ####[facility] [address] [place], [address] Clarity (U) Turbid Normal Clear [facility] Comment on above: Order Comment: VIVIANA CTOR TO SPECIFY Performed By: #### L 400.0001 ####[facility] [address] [place], [address] Color (U) Yellow Normal Yellow [facility] Comment on above: Order Comment: VIVIANA CTOR TO SPECIFY Performed By: #### L 400.0001 ####[facility] [address] [place], [address] GLUCOSE, UR Normal Normal Normal [facility] Comment on above: Order Comment: VIVIANA CTOR TO SPECIFY Performed By: #### L 400.0001 ####[facility] [address] [place], [address] KETONE UR Negative Normal Negative [facility] Comment on above: Order Comment: VIVIANA CTOR TO SPECIFY Performed By: #### L 400.0001 ####[facility] [address] [place], [address] LEUK ESTERASE 500 /ul Abnormal Negative [facility] Comment on above: Order Comment: VIVIANA CTOR TO SPECIFY Performed By: #### L 400.0001 ####[facility] [address] [place], [address] Nitrite Ql (U) Positive Abnormal Negative [facility] Comment on above: Order Comment: VIVIANA CTOR TO SPECIFY Performed By: #### L 400.0001 ####[facility] [address] [place], [address] OCCULT BLOOD-UR 150 /ul Abnormal Negative [facility] Comment on above: Order Comment: VIVIANA CTOR TO SPECIFY Performed By: #### L 400.0001 ####[facility] [address] [place], [address] pH UR 8.0 Normal 5.0 - 8.0 [facility] Comment on above: Order Comment: VIVIANA CTOR TO SPECIFY Performed By: #### L 400.0001 ####[facility] [address] [place], [address] PROT DIPSTX 30 mg/dl Abnormal Negative [facility] Comment on above: Order Comment: VIVIANA CTOR TO SPECIFY Performed By: #### L 400.0001 ####[facility] [address] [place], [address] SP.GR. DIPSTX 1.010 Normal 1.002-1.030 [facility] Comment on above: Order Comment: VIVIANA CTOR TO SPECIFY Performed By: #### L 400.0001 ####[facility] [address] [place], [address] UROBILI Normal Normal Normal [facility] Comment on above: Order Comment: VIVIANA CTOR TO SPECIFY Performed By: #### L 400.0001 ####[facility] [address] [place], [address] EPI,SQUAMOUS 0 SEEN Normal 0-5 [facility] Comment on above: Order Comment: VIVIANA CTOR TO SPECIFY Performed By: #### L 400.0001 ####[facility] [address] [place], [address] Urine blood detectionOrdered By: Remus Unghosea on 09-16-2024 Urine Occult Blood 150 /ul High Negative [facility] Urine clarityOrdered By: Rem us Ungur on 09-16-2024 Clarity (U) Turbid Clear [facility] Urine color determinationOrd ered By: Remus Unghosea on 09-16-2024 Color (U) Yellow Yellow [facility] Urine cultureOrdered By: Rem us Ungur on 09-16-2024 Bacteria identified Cx Nom (U) Serratia marcescens Abnormal [facility] Bacteria identified Cx Nom (U) Proteus mirabilis Abnormal [facility] Urine glucose detectionOrder ed By: Remus Guerline on 09-16-2024 Glucose Ql (U) Normal mg/dl Normal [facility] Urine leukocyte esterase det ection by dipstickOrdered By: Remus Guerline on 09-16-2024 Leukocyte esterase Test strip Ql (U) 500 /ul High Negative [facility] Urine pHOrdered By: Remus Un gur on 09-16-2024 pH (U) 8.0 [pH] 5.0 - 8.0 [facility] Urine sediment bacteria coun t by microscopy (number/high power field)Ordered By: Remus Guerline on 09-16-2024 Bacteria LM.HPF (Urine sed) [#/Area] 4 /[HPF] None Seen [facility] Urine specific gravity measu rementOrdered By: Remus Guerline on 09-16-2024 Specific gravity (U) [Rel density] 1.010 1.002-1.030 [facility] Urine urobilinogen measureme ntOrdered By: Remus Unghosea on 09-16-2024 Urobilinogen Ql (U) Normal mg/dl Normal [facility] Urobilinogen Ql (U)Ordered B y: Remus Ungur on 09-16-2024 Urine Urobilinogen Normal mg/dl Normal [facility] White blood cell (WBC) count Ordered By: Remus Guerline on 09-16-2024 WBC (Bld) [#/Vol] 7.3 10*3/uL 4.4-11.0 [facility] White blood cell countOrdere d By: Juan Freyhosea on 09-16-2024 Urine WBC 50-100 SEEN /hpf 0-5 [facility] White blood cell count 50-100 SEEN /hpf 0-5 [facility] CNPNon 08-22-2024 CNPN Telephone (URCANT) JADON ALVAREZ ([id number]) 1955 M Date Time Provider Department 08/22/24 ISABELA CAMPBELL During your visit today, we recorded the following information about you: Isela Shea 08/22/2024 8:25 AM Signed snf called to cancel/no transport They w/c to [facility] Allergies As of Date: 08/22/2024 Noted Allergy Reaction IBUPROFEN 01/12/2024 16 - Unknown Date Reviewed: 02/17/2024 Reviewed by: Shar Downs MD - Fully Assessed Prescriptions as of 08/22/2024 - amLODIPine (NORVASC) 5 mg tablet Take 1 tablet by mouth every afternoon. - bumetanide (BUMEX) 1 mg tablet TAKE 12 TABLET BY MOUTH TWICE DAILY - ELIQUIS 5 mg tab(s) Take 1 tablet by mouth every 12 hours. - ferrous sulfate 325 mg (65 mg iron) EC tablet - tamsulosin HCl (FLOMAX ORAL) Flomax Oral - MOUNJARO 5 mg/0.5 mL pen injector INJECT 5MGS SUBCUTANEOUS EVERY WEEK ROTATE INJECTION SITES - traZODone (DESYREL) 50 mg tablet - oxyCODONE-acetaminophen (PERCOCET) 5-325 mg tablet TAKE ONE TABLET BY MOUTH EVERY SIX HOURS NEEDED FOR PAIN FOR 3 DAYS - SYMBICORT 160-4.5 mcg/actuation inhaler INHALE 2 PUFFS EVERY DAY - nystatin (MYCOSTATIN) powder Apply to affected area four times daily. - gabapentin (NEURONTIN) 300 mg capsule Take 300 mg by mouth three times a day. - atorvastatin (LIPITOR) 20 mg tablet Take 20 mg by mouth once daily. - aspirin 81 mg cap Take by mouth. Problem List As Of Date: 08/22/2024 (None) Encounter Status:Closed by ISELA SHEA on 08/22/24 [facility] Wound Cultureon 07-30-2024 Normal [facility] Comment on above: Performed By: #### M 100.3000, , 1 ####[facility] [address] [place], [address] Culture, Anaerobic Any Sourc angela 07-29-2024 CUAN No anaerobic bacteri a isolated. [facility] Comment on above: Performed By: #### M 100.3000, M1.1999, .1 ####[facility] [address] [place], [address] .Auto Diffon 07-28-2024 Basophil, Absolute 0.0 10 3/mcL Normal 0.0-0.2 [facility] Comment on above: Performed By: #### C NARENDRA, ZARA, GFR, MDW, ALC, CBC, ANEU #### [address] [address] Basophils/100 WBC (Bld) 0.6 % Normal 0.0-2.5 [facility] Comment on above: Performed By: #### C ZARA MACKEY, GFR, MDW, ALC, CBC, ANEU #### [id number] [place], [place] [address] Eosinophil, Absolute 0.2 10 3/mcL Normal 0.0-0.7 [facility] Comment on above: Performed By: #### C NARENDRA, ZARA, GFR, MDW, ALC, CBC, ANEU #### [id number] [place], [place] [address] Eosinophils/100 WBC (Bld) 3.2 % Normal 0.0-7.0 [facility] Comment on above: Performed By: #### C MP, ADIFF, GFR, MDW, ALC, CBC, ANEU #### [address] [address] Lymphocyte, Absolute 1.0 10 3/mcL Normal 0.9-4.3 [facility] Comment on above: Performed By: #### C MP, ADIFF, GFR, MDW, ALC, CBC, ANEU #### [address] [address] Lymphocytes/100 WBC (Bld) 13.1 % Low 20.0-40.0 [facility] Comment on above: Performed By: #### C MP, ADIFF, GFR, MDW, ALC, CBC, ANEU #### [address] [address] Monocyte, Absolute 0.6 10 3/mcL Normal 0.1-1.4 [facility] Comment on above: Performed By: #### C MP, ADIFF, GFR, MDW, ALC, CBC, ANEU #### [address] [address] Monocytes/100 WBC (Bld) 7.5 % Normal 2.0-13.0 [facility] Comment on above: Performed By: #### C MP, ADIFF, GFR, MDW, ALC, CBC, ANEU #### [address] [address] Neutrophils/100 WBC (Bld) 75.6 % High 50.0-75.0 [facility] Comment on above: Performed By: #### C MP, ADIFF, GFR, MDW, ALC, CBC, ANEU #### [address] [address] .GFRon 07-28-2024 GFR 82 ml/min/1.73sqm Normal [facility] Comment on above: Result Comment: GFR Population mean for , Non- Americans Ages 20-29 = 116 mL/min/1.73 sq.m. Ages 30-39 = 107 mL/min/1.73 sq.m. Ages 40-49 = 99 mL/min/1.73 sq.m. Ages 50-59 = 93 mL/min/1.73 sq.m. Ages 60-69 = 85 mL/min/1.73 sq.m. Ages 70+ = 75 mL/min/1.73 sq.m. Chronic Kidney Disease: Less than 60 mL/min/1.73 square meters End Stage Renal Disease: Less than 15 mL/min/1.73 square meters Performed By: #### C BC, ANEU, MG, ADIFF, GFR, BMP #### [address] [address] GFR Non- 68 ml/min/1.73sqm Normal [facility] Comment on above: Result Comment: GFR Population mean for , Non- Americans Ages 20-29 = 116 mL/min/1.73 sq.m. Ages 30-39 = 107 mL/min/1.73 sq.m. Ages 40-49 = 99 mL/min/1.73 sq.m. Ages 50-59 = 93 mL/min/1.73 sq.m. Ages 60-69 = 85 mL/min/1.73 sq.m. Ages 70+ = 75 mL/min/1.73 sq.m. Chronic Kidney Disease: Less than 60 mL/min/1.73 square meters End Stage Renal Disease: Less than 15 mL/min/1.73 square meters Performed By: #### C BC, ANEU, MG, ADIFF, GFR, BMP #### [address] [address] .MDWon 07-28-2024 Monocyte Distribution Width Not performed Normal 0.00-20.00 [facility] Comment on above: Result Comment: MDW testing performed only on adult ER patients between the ages of 18-89 years. Performed By: #### C BC, ANEU, MG, ADIFF, GFR, BMP #### [address] [address] .NEUABSon 07-28-2024 Neutrophil, Absolute 5.5 10 3/mcL Normal 2.3-8.1 [facility] Comment on above: Performed By: #### C MP, ADIFF, GFR, MDW, ALC, CBC, ANEU #### [address] [address] Abril 07-28-2024 Ethanol Level <3 Normal [facility] Comment on above: Performed By: #### C BC, ANEU, MG, ADIFF, GFR, BMP #### [address] [address] CBCon 07-28-2024 Erythrocyte distribution width (RBC) [Ratio] 19.1 % High 11.5-15.5 [facility] Comment on above: Performed By: #### C MP, ADIFF, GFR, MDW, ALC, CBC, ANEU #### [address] [address] Hematocrit (Bld) [Volume fraction] 43.5 % Normal 40.0-52.0 [facility] Comment on above: Performed By: #### C MP, ADIFF, GFR, MDW, ALC, CBC, ANEU #### [address] [address] Hgb 14.2 G/dL Normal 13.0-17.5 [facility] Comment on above: Performed By: #### C MP, ADIFF, GFR, MDW, ALC, CBC, ANEU #### [address] [address] MCH (RBC) [Entitic mass] 27.2 pg Normal 27.0-33.0 [facility] Comment on above: Performed By: #### C MP, ADIFF, GFR, MDW, ALC, CBC, ANEU #### [address] [place] [address] MCHC 32.6 G/dL Normal 32.0-36.0 [facility] Comment on above: Performed By: #### C MP, ADIFF, GFR, MDW, ALC, CBC, ANEU #### [place] [address] MCV (RBC) [Entitic vol] 83.5 fL Normal 81.0-100.0 [facility] Comment on above: Performed By: #### C MP, ADIFF, GFR, MDW, ALC, CBC, ANEU #### [address] [address] Platelet 166 10 3/mcL Normal 150-450 [facility] Comment on above: Performed By: #### C MP, ADIFF, GFR, MDW, ALC, CBC, ANEU #### [address] [address] Platelet mean volume (Bld) [Entitic vol] 10.2 fL Normal 6.4-10.5 [facility] Comment on above: Performed By: #### C MP, ADIFF, GFR, MDW, ALC, CBC, ANEU #### [address] [address] RBC 5.21 10 6/mcL Normal 4.50-6.00 [facility] Comment on above: Performed By: #### C MP, ADIFF, GFR, MDW, ALC, CBC, ANEU #### [address] [address] WBC 7.3 10 3/mcL Normal 4.5-10.8 [facility] Comment on above: Performed By: #### C MP, ADIFF, GFR, MDW, ALC, CBC, ANEU #### [address] [address] CMPon 07-28-2024 Albumin Level 3.6 G/dL Normal 3.4-4.8 [facility] Comment on above: Performed By: #### C BC, ANEU, MG, ADIFF, GFR, BMP #### [address] [address] Albumin/Globulin [Mass ratio] 1.0 {ratio} Low 1.1-2.5 [facility] Comment on above: Performed By: #### C BC, ANEU, MG, ADIFF, GFR, BMP #### [address] [address] ALP [Catalytic activity/Vol] 114 U/L Normal 40-135 [facility] Comment on above: Performed By: #### C BC, ANEU, MG, ADIFF, GFR, BMP #### [address] [address] ALT [Catalytic activity/Vol] 20 U/L Normal 16-63 [facility] Comment on above: Performed By: #### C BC, ANEU, MG, ADIFF, GFR, BMP #### [address] [address] AST [Catalytic activity/Vol] 19 U/L Normal 10-40 [facility] Comment on above: Performed By: #### C BC, ANEU, MG, ADIFF, GFR, BMP #### [address] [address] Bili Total 0.6 mg/dL Normal 0.2-1.0 [facility] Comment on above: Result Comment: Use of this assay is not recommended for patients undergoing treatment with eltrombopag due to the potential for falsely elevated results. Performed By: #### C BC, ANEU, MG, ADIFF, GFR, BMP #### [address] [address] BUN/Creatinine Ratio 26 ratio Normal 7-27 [facility] Comment on above: Performed By: #### C BC, ANEU, MG, ADIFF, GFR, BMP #### [address] [address] Calcium [Mass/Vol] 9.1 mg/dL Normal 8.4-10.2 [facility] Comment on above: Performed By: #### C BC, ANEU, MG, ADIFF, GFR, BMP #### [address] [address] Chloride [Moles/Vol] 108 mmol/L High 98-107 [facility] Comment on above: Performed By: #### C BC, ANEU, MG, ADIFF, GFR, BMP #### [address] [address] CO2 [Moles/Vol] 23 mmol/L Normal 23-31 [facility] Comment on above: Performed By: #### C BC, ANEU, MG, ADIFF, GFR, BMP #### [address] [address] Creatinine [Mass/Vol] 1.08 mg/dL Normal 0.70-1.30 [facility] Comment on above: Result Comment: Test ing performed on Siemens Dimension EXL analyzer using a modified kinetic Uyen technique. Performed By: #### C BC, ANEU, MG, ADIFF, GFR, BMP #### [address] [address] Electrolyte Balance 14.0 mEq/L Normal 4.0-15.0 [facility] Comment on above: Performed By: #### C BC, ANEU, MG, ADIFF, GFR, BMP #### [address] [address] Globulin 3.5 G/dL Normal [facility] Comment on above: Performed By: #### C BC, ANEU, MG, ADIFF, GFR, BMP #### [address] [address] Glucose [Mass/Vol] 104 mg/dL Normal 80-115 [facility] Comment on above: Performed By: #### C BC, ANEU, MG, ADIFF, GFR, BMP #### [address] [address] Potassium [Moles/Vol] 4.7 mmol/L Normal 3.5-5.1 [facility] Comment on above: Performed By: #### C BC, ANEU, MG, ADIFF, GFR, BMP #### [address] [address] Sodium [Moles/Vol] 145 mmol/L Normal 136-145 [facility] Comment on above: Performed By: #### C BC, ANEU, MG, ADIFF, GFR, BMP #### [address] [address] Total Protein 7.1 G/dL Normal 6.4-8.2 [facility] Comment on above: Performed By: #### C BC, ANEU, MG, ADIFF, GFR, BMP #### [address] [address] Urea nitrogen [Mass/Vol] 28 mg/dL High 7-18 [facility] Comment on above: Performed By: #### C BC, ANEU, MG, ADIFF, GFR, BMP #### [id number] [place], [place] [address] CVFLURVon 07-28-2024 FLU A PCR Negative Normal Negative [facility] Comment on above: Performed By: #### C BC, ANEU, MG, ADIFF, GFR, BMP #### [address] [address] FLU B PCR Negative Normal Negative [facility] Comment on above: Performed By: #### C BC, ANEU, MG, ADIFF, GFR, BMP #### [address] [address] RSV PCR Negative Normal Negative [facility] Comment on above: Performed By: #### C BC, ANEU, MG, ADIFF, GFR, BMP #### [address] [address] SARS-CoV-2 (COVID-19) RNA SUMAN+probe Ql (Unsp spec) Negative Normal Negative [facility] Comment on above: Result Comment: Resu lts from the Xpert Xpress CoV-2/Flu/RSV plus test should be correlated with the clinical history, epidemiological data, and other data available to the clinical evaluating the patient. Performance of the Xpert Xpress CoV-2/Flu/RSV plus test has only been established in nasopharyngeal swab specimen. Erroneous test results might occur from improper specimen collection, failure to follow the recommended sample collection, handling and storage procedures, technical error, or sample mix-up. False negative results may occur if a virus is present at a level below the analytical limit of detection. Viral nucleic acid may persist in vivo, independent of virus viability. Detection of analyte target(s) does not imply that the corresponding virus(es) are infectious or are the causative agents for clinical symptoms. Recent patient exposure to FluMist or other live attenuated influenza vaccines may cause inaccurate positive results. Performed By: #### C BC, ANEU, MG, ADIFF, GFR, BMP #### [facility] [address] [place], [place] [address] LABORATORYOrdered By: SYSTEM SYSTEM on 07-28-2024 Albumin BCP dye [Mass/Vol] 3.6 G/dL Normal 3.4 - 4.8 G/dL AO ADM SS Albumin/Globulin [Mass ratio] 1.0 {ratio} Low 1.1 - 2.5 ratio AO ADM SS ALP [Catalytic activity/Vol] 114 U/L Normal 40 - 135 U/L AO ADM SS ALT With P-5'-P [Catalytic activity/Vol] 20 U/L Normal 16 - 63 U/L AO ADM SS AST With P-5'-P [Catalytic activity/Vol] 19 U/L Normal 10 - 40 U/L AO ADM SS Basophils (Bld) [#/Vol] 0.0 103/mcL Normal 0.0 - 0.2 10^3/mcL AO Workflow SS Basophils/100 WBC (Bld) 0.6 % Normal 0.0 - 2.5 % AO Workflow SS Bilirubin [Mass/Vol] 0.6 mg/dL Normal 0.2 - 1 .0 mg/dL AO ADM SS Comment on above: Interpretive Data: U se of this assay is not recommended for patients undergoing treatment with eltrombopag due to the potential for falsely elevated results. Calcium [Mass/Vol] 9.1 mg/dL Normal 8.4 - 10. 2 mg/dL AO ADM SS Chloride [Moles/Vol] 108 mmol/L High 98 - 10 7 mmol/L AO ADM SS CO2 [Moles/Vol] 23 mmol/L Normal 23 - 31 mmol/L AO ADM SS Creatinine [Mass/Vol] 1.08 mg/dL Normal 0.70 - 1.30 mg/dL AO ADM SS Comment on above: Interpretive Data: T esting performed on Siemens Dimension EXL analyzer using a modified kinetic Uyen technique. Electrolyte Balance 14.0 mEq/L Normal 4.0 - 15 .0 mEq/L AO ADM SS Eosinophil, Absolute 0.2 103/mcL Normal 0.0 - 0 .7 10^3/mcL AO Workflow SS Eosinophils/100 WBC (Bld) 3.2 % Normal 0.0 - 7.0 % AO Workflow SS Erythrocyte distribution width (RBC) [Ratio] 19.1 % High 11.5 - 15.5 % AO Workflow SS Ethanol [Mass/Vol] mg/dL Invalid Interpretation Code AO ADM SS GFR/1.73 sq M.predicted among blacks MDRD (S/P/Bld) [Vol rate/Area] 82 ml/min/1.73sqm Invalid Interpretation Code AO Chemistry S Comment on above: Interpretive Data: GFR Population mean for , Non- Americans Ages 20-29 = 116 mL/min/1.73 sq.m. Ages 30-39 = 107 mL/min/1.73 sq.m. Ages 40-49 = 99 mL/min/1.73 sq.m. Ages 50-59 = 93 mL/min/1.73 sq.m. Ages 60-69 = 85 mL/min/1.73 sq.m. Ages 70+ = 75 mL/min/1.73 sq.m. Chronic Kidney Disease: Less than 60 mL/min/1.73 square meters End Stage Renal Disease: Less than 15 mL/min/1.73 square meters GFR/1.73 sq M.predicted among non-blacks MDRD (S/P/Bld) [Vol rate/Area] 68 ml/min/1.73sqm Invalid Interpretation Code AO Chemistry S Comment on above: Interpretive Data: GFR Population mean for , Non- Americans Ages 20-29 = 116 mL/min/1.73 sq.m. Ages 30-39 = 107 mL/min/1.73 sq.m. Ages 40-49 = 99 mL/min/1.73 sq.m. Ages 50-59 = 93 mL/min/1.73 sq.m. Ages 60-69 = 85 mL/min/1.73 sq.m. Ages 70+ = 75 mL/min/1.73 sq.m. Chronic Kidney Disease: Less than 60 mL/min/1.73 square meters End Stage Renal Disease: Less than 15 mL/min/1.73 square meters Globulin 3.5 G/dL Invalid Interpretation Code AO ADM SS Glucose [Mass/Vol] 104 mg/dL Normal 80 - 115 mg/dL AO ADM SS Hematocrit (Bld) [Volume fraction] 43.5 % Normal 40.0 - 52.0 % AO Workflow SS Hemoglobin (Bld) [Mass/Vol] 14.2 G/dL Normal 13.0 - 17.5 G/dL AO Workflow SS Lymphocytes (Bld) [#/Vol] 1.0 103/mcL Normal 0.9 - 4.3 10^3/mcL AO Workflow SS Lymphocytes/100 WBC (Bld) 13.1 % Low 20.0 - 40.0 % AO Workflow SS MCH (RBC) [Entitic mass] 27.2 pg Normal 27.0 - 33.0 pg AO Workflow SS MCHC 32.6 G/dL Normal 32.0 - 36.0 G/dL AO Workflow SS MCV (RBC) [Entitic vol] 83.5 fL Normal 81.0 - 100.0 fL AO Workflow SS Monocyte distribution width Auto (Bld) [Entitic vol] Not Performed 1 *NA* (07/28/24 3:18 PM) Invalid Interpretation Code 0.00 - 20.00 AO Hematology S Comment on above: Result Comment: MDW testing performed only on adult ER patients between the ages of 18-89 years. Monocytes (Bld) [#/Vol] 0.6 103/mcL Normal 0.1 - 1.4 10^3/mcL AO Workflow SS Monocytes/100 WBC (Bld) 7.5 % Normal 2.0 - 13.0 % AO Workflow SS Neutrophils (Bld) [#/Vol] 5.5 103/mcL Normal 2.3 - 8.1 10^3/mcL AO Workflow SS Neutrophils/100 WBC (Bld) 75.6 % High 50.0 - 75.0 % AO Workflow SS Platelet mean volume (Bld) [Entitic vol] 10.2 fL Normal 6.4 - 10.5 fL AO Workflow SS Platelets (Bld) [#/Vol] 166 103/mcL Normal 150 - 450 10^3/mcL AO Workflow SS Potassium [Moles/Vol] 4.7 mmol/L Normal 3.5 - 5.1 mmol/L AO ADM SS Protein [Mass/Vol] 7.1 G/dL Normal 6.4 - 8.2 G/dL AO ADM SS RBC (Bld) [#/Vol] 5.21 106/mcL Normal 4.50 - 6.0 0 10^6/mcL AO Workflow SS Sodium [Moles/Vol] 145 mmol/L Normal 136 - 145 mmol/L AO ADM SS Urea nitrogen [Mass/Vol] 28 mg/dL High 7 - 18 mg/dL AO ADM SS Urea nitrogen/Creatinine [Mass ratio] 26 ratio Normal 7 - 27 ratio AO ADM SS WBC (Bld) [#/Vol] 7.3 103/mcL Normal 4.5 - 10.8 10^3/mcL AO Workflow SS LABORATORYOrdered By: Erickson Herr on 07-28-2024 Amphetamines Screen Ql (U) Negative *NA* (07/28/24 3:18 PM) Invalid Interpretation Code Negative AO ADM SS Barbiturates Screen Ql (U) Negative *NA* (07/28/24 3:18 PM) Invalid Interpretation Code Negative AO ADM SS Benzodiazepines Ql (U) Negative *NA* (07/28/24 3:18 PM) Invalid Interpretation Code Negative AO ADM SS Benzoylecgonine Screen Ql (U) Negative *NA* (07/28/24 3:18 PM) Invalid Interpretation Code Negative AO ADM SS Cannabinoids Screen Ql (U) Negative *NA* (07/28/24 3:18 PM) Invalid Interpretation Code Negative AO ADM SS Methadone Screen Ql (U) Negative *NA* (07/28/24 3:18 PM) Invalid Interpretation Code Negative AO ADM SS Opiates Screen Ql (U) Negative *NA* (07/28/24 3:18 PM) Invalid Interpretation Code Negative AO ADM SS Phencyclidine Ql (U) Negative *NA* (07/28/24 3:18 PM) Invalid Interpretation Code Negative AO ADM SS Urine Drugs screened: See Below 4 (07/28/24 3:18 PM) Normal AO Chemistry S Comment on above: Interpretive Data: T his drug screen is a presumptive screening only. No confirmation will be performed unless requested. Drugs screened include: Threshold Amphetamines/Methamphetamines 1,000 ng/mL Barbiturates 200 ng/mL Benzodiazepine metabolites 200 ng/mL Cannabinoids (THC metabolites) 50 ng/mL Cocaine 300 ng/mL Opiates 300 ng/mL Methadone 300 ng/mL Phencyclidine (PCP) 25 ng/mL Testing has been performed FOR MEDICAL PURPOSES ONLY. LABORATORYOrdered By: Louie kilpatrick on 07-28-2024 FLUAV RNA SUMAN+probe Ql (Resp) Negative (07/28/24 3:18 PM) Normal Negative AO Auto Urine SS FLUBV RNA SUMAN+probe Ql (Resp) Negative (07/28/24 3:18 PM) Normal Negative AO Auto Urine SS RSV RNA SUMAN+probe Ql (Resp) Negative (07/28/24 3:18 PM) Normal Negative AO Auto Urine SS SARS-CoV-2 (COVID-19) RNA SUMAN+probe Ql (Resp) Negative 5 (07/28/24 3:18 PM) Normal Negative AO Auto Urine SS Comment on above: Interpretive Data: R esults from the Xpert Xpress CoV-2/Flu/RSV plus test should be correlated with the clinical history, epidemiological data, and other data available to the clinical evaluating the patient. Performance of the Xpert Xpress CoV-2/Flu/RSV plus test has only been established in nasopharyngeal swab specimen. Erroneous test results might occur from improper specimen collection, failure to follow the recommended sample collection, handling and storage procedures, technical error, or sample mix-up. False negative results may occur if a virus is present at a level below the analytical limit of detection. Viral nucleic acid may persist in vivo, independent of virus viability. Detection of analyte target(s) does not imply that the corresponding virus(es) are infectious or are the causative agents for clinical symptoms. Recent patient exposure to FluMist or other live attenuated influenza vaccines may cause inaccurate positive results. Delroy 07-28-2024 Amphetamine (u) Negative Normal Negative [facility] Comment on above: Performed By: #### C BC, ANEU, MG, ADIFF, GFR, BMP #### [place] [address] Barbiturate (u) Negative Normal Negative [facility] Comment on above: Performed By: #### C BC, ANEU, MG, ADIFF, GFR, BMP #### [place] [address] Benzodiazepine (u) Negative Normal Negative [facility] Comment on above: Performed By: #### C BC, ANEU, MG, ADIFF, GFR, BMP #### [place] [address] Cannabinoid (u) Negative Normal Negative [facility] Comment on above: Performed By: #### C BC, ANEU, MG, ADIFF, GFR, BMP #### [place] [address] Cocaine Ql (U) Negative Normal Negative [facility] Comment on above: Performed By: #### C BC, ANEU, MG, ADIFF, GFR, BMP #### [address] [address] Methadone Ql (U) Negative Normal Negative [facility] Comment on above: Performed By: #### C BC, ANEU, MG, ADIFF, GFR, BMP #### [id number] [place], [place] [address] Opiate (u) Negative Normal Negative [facility] Comment on above: Performed By: #### C BC, ANEU, MG, ADIFF, GFR, BMP #### [address] [address] PCP (u) Negative Normal Negative [facility] Comment on above: Performed By: #### C BC, ANEU, MG, ADIFF, GFR, BMP #### [address] [address] Urine Drugs screened: See Below Normal [facility] Comment on above: Result Comment: This drug screen is a presumptive screening only. No confirmation will be performed unless requested. Drugs screened include: Threshold Amphetamines/Methamphetamines 1,000 ng/mL Barbiturates 200 ng/mL Benzodiazepine metabolites 200 ng/mL Cannabinoids (THC metabolites) 50 ng/mL Cocaine 300 ng/mL Opiates 300 ng/mL Methadone 300 ng/mL Phencyclidine (PCP) 25 ng/mL Testing has been performed FOR MEDICAL PURPOSES ONLY. Performed By: #### C BC, ANEU, MG, ADIFF, GFR, BMP #### [address] [address] Bacteria identified Anaer cx Nom (Unsp spec)Ordered By: Aaron Shannon on 07-26-2024 Anaerobic Culture No anaerobic bacteri a isolated. [facility] Gram Stainon 07-26-2024 GS Gram Stain 2+ White Blood Cells No organisms seen Normal [facility] Comment on above: Performed By: #### M 100.3000, M100.2000, M100.4001 ####[facility] [id number] [place], [place], [id number] Gram stainOrdered By: Mari Shannon on 07-26-2024 Microscopic observation Gram stain Nom (Unsp spec) [facility] Routine wound cultureOrdered By: Aaron Shannon on 07-26-2024 Wound Culture Meth. resistant Stap h. aureus Abnormal [facility] CNPNon 07-13-2024 CNPN Telephone (URCANT) JADON ALVAREZ ([id number]) 1955 M Date Time Provider Department 07/13/24 ISABELA CAMPBELL During your visit today, we recorded the following information about you: Isela Shea 07/13/2024 8:37 AM S[facility] called bladder issues and bloodin bag has resolved and they wanted to cancel the 07/19/2024 appt and keep 08/22/2024. Isela Shea Allergies As of Date: 07/13/2024 Noted Allergy Reaction IBUPROFEN 01/12/2024 16 - Unknown Date Reviewed: 02/17/2024 Reviewed by: Shar Downs MD - Fully Assessed Reason for Visit: Appointment [186] Prescriptions as of 07/13/2024 - amLODIPine (NORVASC) 5 mg tablet Take 1 tablet by mouth every afternoon. - bumetanide (BUMEX) 1 mg tablet TAKE 12 TABLET BY MOUTH TWICE DAILY - ELIQUIS 5 mg tab(s) Take 1 tablet by mouth every 12 hours. - ferrous sulfate 325 mg (65 mg iron) EC tablet - tamsulosin HCl (FLOMAX ORAL) Flomax Oral - MOUNJARO 5 mg/0.5 mL pen injector INJECT 5MGS SUBCUTANEOUS EVERY WEEK ROTATE INJECTION SITES - traZODone (DESYREL) 50 mg tablet - oxyCODONE-acetaminophen (PERCOCET) 5-325 mg tablet TAKE ONE TABLET BY MOUTH EVERY SIX HOURS NEEDED FOR PAIN FOR 3 DAYS - SYMBICORT 160-4.5 mcg/actuation inhaler INHALE 2 PUFFS EVERY DAY - nystatin (MYCOSTATIN) powder Apply to affected area four times daily. - gabapentin (NEURONTIN) 300 mg capsule Take 300 mg by mouth three times a day. - atorvastatin (LIPITOR) 20 mg tablet Take 20 mg by mouth once daily. - aspirin 81 mg cap Take by mouth. Problem List As Of Date: 07/13/2024 (None) Encounter Status:Closed by ISELA SHEA on 07/13/24 [facility] Bedside Glucoseon 06-05-2024 FINGERSTICK GLU 125 mg/dL High 74-106 [facility] Comment on above: Result Comment: PETER HINSON OF PATIENT CARE PER NURSING PROTOCOL Performed By: #### L 501.080 ####[facility] [id number] [place], [address] [facility] deOrdered By: Aaron Shannon on 06-05-2024 Bedside Glucose (Misc Panel) 125 mg/dL High 74-106 [facility] Comment on above: MANAGEMENT OF PATIEN T CARE PER NURSING PROTOCOL MR/POSTOP.ANEon 06-05-2024 MR/POSTOP.ANE [facility] [id number] 06-05-2024 MR/POSTOPAN2 [facility] Operative Reporton Operative Report [facility] CNPNon 04-20-2024 [facility] Telephone (XU) JADON ALVAREZ ([id number]) 1955 M Date Time Provider Department 04/20/24 DONOVAN EDMNODSON During your visit today, we recorded the following information about you: Kira Carrasco 04/20/2024 9:03 AM Signed Called patient to reschedule. 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 Patient has had surgery and treatment through wound care so son is thinking he doesn't need to be seen here. Kira Carrasco Allergies As of Date: 04/20/2024 Noted Allergy Reaction IBUPROFEN 01/12/2024 16 - Unknown Date Reviewed: 02/17/2024 Reviewed by: Shar Downs MD - Fully Assessed Reason for Visit: Appointment [186] Prescriptions as of 04/20/2024 - amLODIPine (NORVASC) 5 mg tablet Take 1 tablet by mouth every afternoon. - bumetanide (BUMEX) 1 mg tablet TAKE 12 TABLET BY MOUTH TWICE DAILY - ELIQUIS 5 mg tab(s) Take 1 tablet by mouth every 12 hours. - ferrous sulfate 325 mg (65 mg iron) EC tablet - tamsulosin HCl (FLOMAX ORAL) Flomax Oral - MOUNJARO 5 mg/0.5 mL pen injector INJECT 5MGS SUBCUTANEOUS EVERY WEEK ROTATE INJECTION SITES - traZODone (DESYREL) 50 mg tablet - oxyCODONE-acetaminophen (PERCOCET) 5-325 mg tablet TAKE ONE TABLET BY MOUTH EVERY SIX HOURS NEEDED FOR PAIN FOR 3 DAYS - SYMBICORT 160-4.5 mcg/actuation inhaler INHALE 2 PUFFS EVERY DAY - nystatin (MYCOSTATIN) powder Apply to affected area four times daily. - gabapentin (NEURONTIN) 300 mg capsule Take 300 mg by mouth three times a day. - atorvastatin (LIPITOR) 20 mg tablet Take 20 mg by mouth once daily. - aspirin 81 mg cap Take by mouth. Problem List As Of Date: 04/20/2024 (None) Encounter Status:Closed by DESHAWN PALACIO on 04/20/24 Normal [facility] .Auto Diffon 04-08-2024 Basophil, Absolute 0.0 10 3/mcL Normal 0.0-0.2 [facility] Comment on above: Performed By: #### C BC, ANEU, MG, ADIFF, GFR, BMP #### Denise [address] [place], [place] [address] Basophils/100 WBC (Bld) 0.8 % Normal 0.0-2.5 [facility] Comment on above: Performed By: #### C BC, ANEU, MG, ADIFF, GFR, BMP #### [address] [address] Eosinophil, Absolute 0.4 10 3/mcL Normal 0.0-0.7 [facility] Comment on above: Performed By: #### C BC, ANEU, MG, ADIFF, GFR, BMP #### [address] [address] Eosinophils/100 WBC (Bld) 6.9 % Normal 0.0-7.0 [facility] Comment on above: Performed By: #### C BC, ANEU, MG, ADIFF, GFR, BMP #### [address] [address] Lymphocyte, Absolute 1.2 10 3/mcL Normal 0.9-4.3 [facility] Comment on above: Performed By: #### C BC, ANEU, MG, ADIFF, GFR, BMP #### [address] [address] Lymphocytes/100 WBC (Bld) 21.1 % Normal 20.0-40.0 [facility] Comment on above: Performed By: #### C BC, ANEU, MG, ADIFF, GFR, BMP #### [address] [address] Monocyte, Absolute 0.4 10 3/mcL Normal 0.1-1.4 [facility] Comment on above: Performed By: #### C BC, ANEU, MG, ADIFF, GFR, BMP #### [address] [address] Monocytes/100 WBC (Bld) 7.5 % Normal 2.0-13.0 [facility] Comment on above: Performed By: #### C BC, ANEU, MG, ADIFF, GFR, BMP #### [address] [address] Neutrophils/100 WBC (Bld) 63.7 % Normal 50.0-75.0 [facility] Comment on above: Performed By: #### C BC, ANEU, MG, ADIFF, GFR, BMP #### [address] [address] .GFRon 04-08-2024 GFR 74 ml/min/1.73sqm Normal [facility] Comment on above: Result Comment: GFR Population mean for , Non- Americans Ages 20-29 = 116 mL/min/1.73 sq.m. Ages 30-39 = 107 mL/min/1.73 sq.m. Ages 40-49 = 99 mL/min/1.73 sq.m. Ages 50-59 = 93 mL/min/1.73 sq.m. Ages 60-69 = 85 mL/min/1.73 sq.m. Ages 70+ = 75 mL/min/1.73 sq.m. Chronic Kidney Disease: Less than 60 mL/min/1.73 square meters End Stage Renal Disease: Less than 15 mL/min/1.73 square meters Performed By: #### C BC, ANEU, MG, ADIFF, GFR, BMP #### [address] [address] GFR Non- 61 ml/min/1.73sqm Normal [facility] Comment on above: Result Comment: GFR Population mean for , Non- Americans Ages 20-29 = 116 mL/min/1.73 sq.m. Ages 30-39 = 107 mL/min/1.73 sq.m. Ages 40-49 = 99 mL/min/1.73 sq.m. Ages 50-59 = 93 mL/min/1.73 sq.m. Ages 60-69 = 85 mL/min/1.73 sq.m. Ages 70+ = 75 mL/min/1.73 sq.m. Chronic Kidney Disease: Less than 60 mL/min/1.73 square meters End Stage Renal Disease: Less than 15 mL/min/1.73 square meters Performed By: #### C BC, ANEU, MG, ADIFF, GFR, BMP #### [address] [address] .NEUABSon 04-08-2024 Neutrophil, Absolute 3.7 10 3/mcL Normal 2.3-8.1 [facility] Comment on above: Performed By: #### C BC, ANEU, MG, ADIFF, GFR, BMP #### [address] [address] BMPon 04-08-2024 BUN/Creatinine Ratio 14 ratio Normal 7-27 [facility] Comment on above: Performed By: #### C BC, ANEU, MG, ADIFF, GFR, BMP #### [address] [address] Calcium [Mass/Vol] 8.8 mg/dL Normal 8.4-10.2 [facility] Comment on above: Performed By: #### C BC, ANEU, MG, ADIFF, GFR, BMP #### [place] [address] Chloride [Moles/Vol] 103 mmol/L Normal 98-107 [facility] Comment on above: Performed By: #### C BC, ANEU, MG, ADIFF, GFR, BMP #### [place] [address] CO2 [Moles/Vol] 30 mmol/L Normal 23-31 [facility] Comment on above: Performed By: #### C BC, ANEU, MG, ADIFF, GFR, BMP #### [place] [address] Creatinine [Mass/Vol] 1.19 mg/dL Normal 0.70-1.30 [facility] Comment on above: Result Comment: Test ing performed on Siemens Dimension EXL analyzer using a modified kinetic Uyen technique. Performed By: #### C BC, ANEU, MG, ADIFF, GFR, BMP #### [place] [address] Electrolyte Balance 6.0 mEq/L Normal 4.0-15.0 [facility] Comment on above: Performed By: #### C BC, ANEU, MG, ADIFF, GFR, BMP #### [place] [address] Glucose [Mass/Vol] 94 mg/dL Normal 80-115 [facility] Comment on above: Performed By: #### C BC, ANEU, MG, ADIFF, GFR, BMP #### [place] [address] Potassium [Moles/Vol] 4.7 mmol/L Normal 3.5-5.1 [facility] Comment on above: Performed By: #### C BC, ANEU, MG, ADIFF, GFR, BMP #### [place] [address] Sodium [Moles/Vol] 139 mmol/L Normal 136-145 [facility] Comment on above: Performed By: #### C BC, ANEU, MG, ADIFF, GFR, BMP #### [place] [address] Urea nitrogen [Mass/Vol] 17 mg/dL Normal 7-18 [facility] Comment on above: Performed By: #### C BC, ANEU, MG, ADIFF, GFR, BMP #### [place] [address] CBCon 04-08-2024 Erythrocyte distribution width (RBC) [Ratio] 19.4 % High 11.5-15.5 [facility] Comment on above: Performed By: #### C BC, ANEU, MG, ADIFF, GFR, BMP #### [place] [address] Hematocrit (Bld) [Volume fraction] 36.5 % Low 40.0-52.0 [facility] Comment on above: Performed By: #### C BC, ANEU, MG, ADIFF, GFR, BMP #### [place] [address] Hgb 11.7 G/dL Low 13.0-17.5 [facility] Comment on above: Performed By: #### C BC, ANEU, MG, ADIFF, GFR, BMP #### [place] [address] MCH (RBC) [Entitic mass] 27.2 pg Normal 27.0-33.0 [facility] Comment on above: Performed By: #### C BC, ANEU, MG, ADIFF, GFR, BMP #### [address] [address] MCHC 32.1 G/dL Normal 32.0-36.0 [facility] Comment on above: Performed By: #### C BC, ANEU, MG, ADIFF, GFR, BMP #### [address] [address] MCV (RBC) [Entitic vol] 84.9 fL Normal 81.0-100.0 [facility] Comment on above: Performed By: #### C BC, ANEU, MG, ADIFF, GFR, BMP #### [address] [address] Platelet 198 10 3/mcL Normal 150-450 [facility] Comment on above: Performed By: #### C BC, ANEU, MG, ADIFF, GFR, BMP #### [address] [address] Platelet mean volume (Bld) [Entitic vol] 9.9 fL Normal 6.4-10.5 [facility] Comment on above: Performed By: #### C BC, ANEU, MG, ADIFF, GFR, BMP #### [address] [address] RBC 4.30 10 6/mcL Low 4.50-6.00 [facility] Comment on above: Performed By: #### C BC, ANEU, MG, ADIFF, GFR, BMP #### [address] [address] WBC 5.8 10 3/mcL Normal 4.5-10.8 [facility] Comment on above: Performed By: #### C BC, ANEU, MG, ADIFF, GFR, BMP #### [address] [address] LABORATORYOrdered By: Pebbles Rivas on 04-08-2024 Blood Glucose Testing Reason Routine (04/08/24 8:02 AM) [facility] Work Phone: Glucose [Mass/Vol] 112 mg/dL Normal 82 - 115 mg/dL [facility] Work Phone: LABORATORYOrdered By: SYSTEM SYSTEM on 04-08-2024 Basophils (Bld) [#/Vol] 0.0 103/mcL Normal 0.0 - 0.2 10^3/mcL AO Workflow SS Basophils/100 WBC (Bld) 0.8 % Normal 0.0 - 2.5 % AO Workflow SS Calcium [Mass/Vol] 8.8 mg/dL Normal 8.4 - 10. 2 mg/dL AO ADM SS Chloride [Moles/Vol] 103 mmol/L Normal 98 - 10 7 mmol/L AO ADM SS CO2 [Moles/Vol] 30 mmol/L Normal 23 - 31 mmol/L AO ADM SS Creatinine [Mass/Vol] 1.19 mg/dL Normal 0.70 - 1.30 mg/dL AO ADM SS Comment on above: Interpretive Data: T esting performed on Siemens Dimension EXL analyzer using a modified kinetic Uyen technique. Electrolyte Balance 6.0 mEq/L Normal 4.0 - 15 .0 mEq/L AO ADM SS Eosinophil, Absolute 0.4 103/mcL Normal 0.0 - 0 .7 10^3/mcL AO Workflow SS Eosinophils/100 WBC (Bld) 6.9 % Normal 0.0 - 7.0 % AO Workflow SS Erythrocyte distribution width (RBC) [Ratio] 19.4 % High 11.5 - 15.5 % AO Workflow SS GFR/1.73 sq M.predicted among blacks MDRD (S/P/Bld) [Vol rate/Area] 74 ml/min/1.73sqm Invalid Interpretation Code AO Chemistry S Comment on above: Interpretive Data: GFR Population mean for , Non- Americans Ages 20-29 = 116 mL/min/1.73 sq.m. Ages 30-39 = 107 mL/min/1.73 sq.m. Ages 40-49 = 99 mL/min/1.73 sq.m. Ages 50-59 = 93 mL/min/1.73 sq.m. Ages 60-69 = 85 mL/min/1.73 sq.m. Ages 70+ = 75 mL/min/1.73 sq.m. Chronic Kidney Disease: Less than 60 mL/min/1.73 square meters End Stage Renal Disease: Less than 15 mL/min/1.73 square meters GFR/1.73 sq M.predicted among non-blacks MDRD (S/P/Bld) [Vol rate/Area] 61 ml/min/1.73sqm Invalid Interpretation Code AO Chemistry S Comment on above: Interpretive Data: GFR Population mean for , Non- Americans Ages 20-29 = 116 mL/min/1.73 sq.m. Ages 30-39 = 107 mL/min/1.73 sq.m. Ages 40-49 = 99 mL/min/1.73 sq.m. Ages 50-59 = 93 mL/min/1.73 sq.m. Ages 60-69 = 85 mL/min/1.73 sq.m. Ages 70+ = 75 mL/min/1.73 sq.m. Chronic Kidney Disease: Less than 60 mL/min/1.73 square meters End Stage Renal Disease: Less than 15 mL/min/1.73 square meters Glucose [Mass/Vol] 94 mg/dL Normal 80 - 115 mg/dL AO ADM SS Hematocrit (Bld) [Volume fraction] 36.5 % Low 40.0 - 52.0 % AO Workflow SS Hemoglobin (Bld) [Mass/Vol] 11.7 G/dL Low 13.0 - 17.5 G/dL AO Workflow SS Lymphocytes (Bld) [#/Vol] 1.2 103/mcL Normal 0.9 - 4.3 10^3/mcL AO Workflow SS Lymphocytes/100 WBC (Bld) 21.1 % Normal 20.0 - 40.0 % AO Workflow SS Magnesium [Mass/Vol] 2.0 mg/dL Normal 1.8 - 2 .4 mg/dL AO ADM SS MCH (RBC) [Entitic mass] 27.2 pg Normal 27.0 - 33.0 pg AO Workflow SS MCHC 32.1 G/dL Normal 32.0 - 36.0 G/dL AO Workflow SS MCV (RBC) [Entitic vol] 84.9 fL Normal 81.0 - 100.0 fL AO Workflow SS Monocytes (Bld) [#/Vol] 0.4 103/mcL Normal 0.1 - 1.4 10^3/mcL AO Workflow SS Monocytes/100 WBC (Bld) 7.5 % Normal 2.0 - 13.0 % AO Workflow SS Neutrophils (Bld) [#/Vol] 3.7 103/mcL Normal 2.3 - 8.1 10^3/mcL AO Workflow SS Neutrophils/100 WBC (Bld) 63.7 % Normal 50.0 - 75.0 % AO Workflow SS Platelet mean volume (Bld) [Entitic vol] 9.9 fL Normal 6.4 - 10.5 fL AO Workflow SS Platelets (Bld) [#/Vol] 198 103/mcL Normal 150 - 450 10^3/mcL AO Workflow SS Potassium [Moles/Vol] 4.7 mmol/L Normal 3.5 - 5.1 mmol/L AO ADM SS RBC (Bld) [#/Vol] 4.30 106/mcL Low 4.50 - 6.0 0 10^6/mcL AO Workflow SS Sodium [Moles/Vol] 139 mmol/L Normal 136 - 145 mmol/L AO ADM SS Urea nitrogen [Mass/Vol] 17 mg/dL Normal 7 - 18 mg/dL AO ADM SS Urea nitrogen/Creatinine [Mass ratio] 14 ratio Normal 7 - 27 ratio AO ADM SS WBC (Bld) [#/Vol] 5.8 103/mcL Normal 4.5 - 10.8 10^3/mcL AO Workflow SS MGon 04-08-2024 Magnesium [Mass/Vol] 2.0 mg/dL Normal 1.8-2.4 [facility] Comment on above: Performed By: #### C BC, ANEU, MG, ADIFF, GFR, BMP #### [address] [address] .Auto Diffon 04-07-2024 Basophil, Absolute 0.1 10 3/mcL Normal 0.0-0.2 [facility] Comment on above: Performed By: #### C BC, ANEU, MG, ADIFF, GFR, BMP #### [id number] [place], [place] [address] Basophils/100 WBC (Bld) 0.9 % Normal 0.0-2.5 [facility] Comment on above: Performed By: #### C BC, ANEU, MG, ADIFF, GFR, BMP #### [id number] [place], [place] [address] Eosinophil, Absolute 0.4 10 3/mcL Normal 0.0-0.7 [facility] Comment on above: Performed By: #### C BC, ANEU, MG, ADIFF, GFR, BMP #### [address] [address] Eosinophils/100 WBC (Bld) 6.9 % Normal 0.0-7.0 [facility] Comment on above: Performed By: #### C BC, ANEU, MG, ADIFF, GFR, BMP #### [address] [address] Lymphocyte, Absolute 0.9 10 3/mcL Normal 0.9-4.3 [facility] Comment on above: Performed By: #### C BC, ANEU, MG, ADIFF, GFR, BMP #### [address] [address] Lymphocytes/100 WBC (Bld) 15.1 % Low 20.0-40.0 [facility] Comment on above: Performed By: #### C BC, ANEU, MG, ADIFF, GFR, BMP #### [address] [address] Monocyte, Absolute 0.5 10 3/mcL Normal 0.1-1.4 [facility] Comment on above: Performed By: #### C BC, ANEU, MG, ADIFF, GFR, BMP #### [address] [address] Monocytes/100 WBC (Bld) 9.1 % Normal 2.0-13.0 [facility] Comment on above: Performed By: #### C BC, ANEU, MG, ADIFF, GFR, BMP #### [address] [address] Neutrophils/100 WBC (Bld) 68.0 % Normal 50.0-75.0 [facility] Comment on above: Performed By: #### C BC, ANEU, MG, ADIFF, GFR, BMP #### [address] [address] .GFRon 04-07-2024 GFR 74 ml/min/1.73sqm Normal [facility] Comment on above: Result Comment: GFR Population mean for , Non- Americans Ages 20-29 = 116 mL/min/1.73 sq.m. Ages 30-39 = 107 mL/min/1.73 sq.m. Ages 40-49 = 99 mL/min/1.73 sq.m. Ages 50-59 = 93 mL/min/1.73 sq.m. Ages 60-69 = 85 mL/min/1.73 sq.m. Ages 70+ = 75 mL/min/1.73 sq.m. Chronic Kidney Disease: Less than 60 mL/min/1.73 square meters End Stage Renal Disease: Less than 15 mL/min/1.73 square meters Performed By: #### C BC, ANEU, MG, ADIFF, GFR, BMP #### [address] [address] GFR Non- 61 ml/min/1.73sqm Normal [facility] Comment on above: Result Comment: GFR Population mean for , Non- Americans Ages 20-29 = 116 mL/min/1.73 sq.m. Ages 30-39 = 107 mL/min/1.73 sq.m. Ages 40-49 = 99 mL/min/1.73 sq.m. Ages 50-59 = 93 mL/min/1.73 sq.m. Ages 60-69 = 85 mL/min/1.73 sq.m. Ages 70+ = 75 mL/min/1.73 sq.m. Chronic Kidney Disease: Less than 60 mL/min/1.73 square meters End Stage Renal Disease: Less than 15 mL/min/1.73 square meters Performed By: #### C BC, ANEU, MG, ADIFF, GFR, BMP #### [address] [address] .NEUABSon 04-07-2024 Neutrophil, Absolute 3.9 10 3/mcL Normal 2.3-8.1 [facility] Comment on above: Performed By: #### C BC, ANEU, MG, ADIFF, GFR, BMP #### [address] [address] BMPon 04-07-2024 BUN/Creatinine Ratio 16 ratio Normal 7-27 [facility] Comment on above: Performed By: #### C BC, ANEU, MG, ADIFF, GFR, BMP #### [address] [address] Calcium [Mass/Vol] 8.8 mg/dL Normal 8.4-10.2 [facility] Comment on above: Performed By: #### C BC, ANEU, MG, ADIFF, GFR, BMP #### [address] [address] Chloride [Moles/Vol] 103 mmol/L Normal 98-107 [facility] Comment on above: Performed By: #### C BC, ANEU, MG, ADIFF, GFR, BMP #### [address] [address] CO2 [Moles/Vol] 32 mmol/L High 23-31 [facility] Comment on above: Performed By: #### C BC, ANEU, MG, ADIFF, GFR, BMP #### [address] [address] Creatinine [Mass/Vol] 1.19 mg/dL Normal 0.70-1.30 [facility] Comment on above: Result Comment: Test ing performed on Siemens Dimension EXL analyzer using a modified kinetic Uyen technique. Performed By: #### C BC, ANEU, MG, ADIFF, GFR, BMP #### [address] [address] Electrolyte Balance 2.0 mEq/L Low 4.0-15.0 [facility] Comment on above: Performed By: #### C BC, ANEU, MG, ADIFF, GFR, BMP #### [address] [address] Glucose [Mass/Vol] 101 mg/dL Normal 80-115 [facility] Comment on above: Performed By: #### C BC, ANEU, MG, ADIFF, GFR, BMP #### [address] [address] Potassium [Moles/Vol] 4.7 mmol/L Normal 3.5-5.1 [facility] Comment on above: Performed By: #### C BC, ANEU, MG, ADIFF, GFR, BMP #### [address] [place] [address] Sodium [Moles/Vol] 137 mmol/L Normal 136-145 [facility] Comment on above: Performed By: #### C BC, ANEU, MG, ADIFF, GFR, BMP #### [address] [address] Urea nitrogen [Mass/Vol] 19 mg/dL High 7-18 [facility] Comment on above: Performed By: #### C BC, ANEU, MG, ADIFF, GFR, BMP #### [id number] CBCon 04-07-2024 Erythrocyte distribution width (RBC) [Ratio] 20.0 % High 11.5-15.5 [facility] Comment on above: Performed By: #### C BC, ANEU, MG, ADIFF, GFR, BMP #### [address] [place] [address] Hematocrit (Bld) [Volume fraction] 36.2 % Low 40.0-52.0 [facility] Comment on above: Performed By: #### C BC, ANEU, MG, ADIFF, GFR, BMP #### [address] [place] [address] Hgb 11.5 G/dL Low 13.0-17.5 [facility] Comment on above: Performed By: #### C BC, ANEU, MG, ADIFF, GFR, BMP #### [address] [place] [address] MCH (RBC) [Entitic mass] 27.0 pg Normal 27.0-33.0 [facility] Comment on above: Performed By: #### C BC, ANEU, MG, ADIFF, GFR, BMP #### [place] [address] MCHC 31.7 G/dL Low 32.0-36.0 [facility] Comment on above: Performed By: #### C BC, ANEU, MG, ADIFF, GFR, BMP #### [address] [address] MCV (RBC) [Entitic vol] 85.2 fL Normal 81.0-100.0 [facility] Comment on above: Performed By: #### C BC, ANEU, MG, ADIFF, GFR, BMP #### [address] [address] Platelet 171 10 3/mcL Normal 150-450 [facility] Comment on above: Performed By: #### C BC, ANEU, MG, ADIFF, GFR, BMP #### [address] [address] Platelet mean volume (Bld) [Entitic vol] 9.3 fL Normal 6.4-10.5 [facility] Comment on above: Performed By: #### C BC, ANEU, MG, ADIFF, GFR, BMP #### [address] [address] RBC 4.25 10 6/mcL Low 4.50-6.00 [facility] Comment on above: Performed By: #### C BC, ANEU, MG, ADIFF, GFR, BMP #### [address] [address] WBC 5.8 10 3/mcL Normal 4.5-10.8 [facility] Comment on above: Performed By: #### C BC, ANEU, MG, ADIFF, GFR, BMP #### [address] [address] LABORATORYOrdered By: Altaf Pabon on 04-07-2024 Blood Glucose Testing Reason Routine (04/07/24 9:32 PM) [facility] Work Phone: Glucose [Mass/Vol] 119 mg/dL High 82 - 115 mg/dL [facility] Work Phone: LABORATORYOrdered By: Bebeto Magdaleno on 04-07-2024 Blood Glucose Testing Reason Routine (04/07/24 4:20 PM) [facility] Work Phone: Glucose [Mass/Vol] 152 mg/dL High 82 - 115 mg/dL [facility] Work Phone: LABORATORYOrdered By: SYSTEM SYSTEM on 04-07-2024 Basophils (Bld) [#/Vol] 0.1 103/mcL Normal 0.0 - 0.2 10^3/mcL AO Workflow SS Basophils/100 WBC (Bld) 0.9 % Normal 0.0 - 2.5 % AO Workflow SS Calcium [Mass/Vol] 8.8 mg/dL Normal 8.4 - 10. 2 mg/dL AO ADM SS Chloride [Moles/Vol] 103 mmol/L Normal 98 - 10 7 mmol/L AO ADM SS CO2 [Moles/Vol] 32 mmol/L High 23 - 31 mmol/L AO ADM SS Creatinine [Mass/Vol] 1.19 mg/dL Normal 0.70 - 1.30 mg/dL AO ADM SS Comment on above: Interpretive Data: T esting performed on Siemens Dimension EXL analyzer using a modified kinetic Uyen technique. Electrolyte Balance 2.0 mEq/L Low 4.0 - 15 .0 mEq/L AO ADM SS Eosinophil, Absolute 0.4 103/mcL Normal 0.0 - 0 .7 10^3/mcL AO Workflow SS Eosinophils/100 WBC (Bld) 6.9 % Normal 0.0 - 7.0 % AO Workflow SS Erythrocyte distribution width (RBC) [Ratio] 20.0 % High 11.5 - 15.5 % AO Workflow SS GFR/1.73 sq M.predicted among blacks MDRD (S/P/Bld) [Vol rate/Area] 74 ml/min/1.73sqm Invalid Interpretation Code AO Chemistry S Comment on above: Interpretive Data: GFR Population mean for , Non- Americans Ages 20-29 = 116 mL/min/1.73 sq.m. Ages 30-39 = 107 mL/min/1.73 sq.m. Ages 40-49 = 99 mL/min/1.73 sq.m. Ages 50-59 = 93 mL/min/1.73 sq.m. Ages 60-69 = 85 mL/min/1.73 sq.m. Ages 70+ = 75 mL/min/1.73 sq.m. Chronic Kidney Disease: Less than 60 mL/min/1.73 square meters End Stage Renal Disease: Less than 15 mL/min/1.73 square meters GFR/1.73 sq M.predicted among non-blacks MDRD (S/P/Bld) [Vol rate/Area] 61 ml/min/1.73sqm Invalid Interpretation Code AO Chemistry S Comment on above: Interpretive Data: GFR Population mean for , Non- Americans Ages 20-29 = 116 mL/min/1.73 sq.m. Ages 30-39 = 107 mL/min/1.73 sq.m. Ages 40-49 = 99 mL/min/1.73 sq.m. Ages 50-59 = 93 mL/min/1.73 sq.m. Ages 60-69 = 85 mL/min/1.73 sq.m. Ages 70+ = 75 mL/min/1.73 sq.m. Chronic Kidney Disease: Less than 60 mL/min/1.73 square meters End Stage Renal Disease: Less than 15 mL/min/1.73 square meters Glucose [Mass/Vol] 101 mg/dL Normal 80 - 115 mg/dL AO ADM SS Hematocrit (Bld) [Volume fraction] 36.2 % Low 40.0 - 52.0 % AO Workflow SS Hemoglobin (Bld) [Mass/Vol] 11.5 G/dL Low 13.0 - 17.5 G/dL AO Workflow SS Lymphocytes (Bld) [#/Vol] 0.9 103/mcL Normal 0.9 - 4.3 10^3/mcL AO Workflow SS Lymphocytes/100 WBC (Bld) 15.1 % Low 20.0 - 40.0 % AO Workflow SS Magnesium [Mass/Vol] 2.1 mg/dL Normal 1.8 - 2 .4 mg/dL AO ADM SS MCH (RBC) [Entitic mass] 27.0 pg Normal 27.0 - 33.0 pg AO Workflow SS MCHC 31.7 G/dL Low 32.0 - 36.0 G/dL AO Workflow SS MCV (RBC) [Entitic vol] 85.2 fL Normal 81.0 - 100.0 fL AO Workflow SS Monocytes (Bld) [#/Vol] 0.5 103/mcL Normal 0.1 - 1.4 10^3/mcL AO Workflow SS Monocytes/100 WBC (Bld) 9.1 % Normal 2.0 - 13.0 % AO Workflow SS Neutrophils (Bld) [#/Vol] 3.9 103/mcL Normal 2.3 - 8.1 10^3/mcL AO Workflow SS Neutrophils/100 WBC (Bld) 68.0 % Normal 50.0 - 75.0 % AO Workflow SS Platelet mean volume (Bld) [Entitic vol] 9.3 fL Normal 6.4 - 10.5 fL AO Workflow SS Platelets (Bld) [#/Vol] 171 103/mcL Normal 150 - 450 10^3/mcL AO Workflow SS Potassium [Moles/Vol] 4.7 mmol/L Normal 3.5 - 5.1 mmol/L AO ADM SS RBC (Bld) [#/Vol] 4.25 106/mcL Low 4.50 - 6.0 0 10^6/mcL AO Workflow SS Sodium [Moles/Vol] 137 mmol/L Normal 136 - 145 mmol/L AO ADM SS Urea nitrogen [Mass/Vol] 19 mg/dL High 7 - 18 mg/dL AO ADM SS Urea nitrogen/Creatinine [Mass ratio] 16 ratio Normal 7 - 27 ratio AO ADM SS WBC (Bld) [#/Vol] 5.8 103/mcL Normal 4.5 - 10.8 10^3/mcL AO Workflow SS MGon 04-07-2024 Magnesium [Mass/Vol] 2.1 mg/dL Normal 1.8-2.4 [facility] Comment on above: Performed By: #### C BC, ANEU, MG, ADIFF, GFR, BMP #### [address] [address] .Auto Diffon 04-06-2024 Basophil, Absolute 0.1 10 3/mcL Normal 0.0-0.2 [facility] Comment on above: Performed By: #### C BC, ANEU, MG, ADIFF, GFR, BMP #### [address] [address] Basophils/100 WBC (Bld) 0.9 % Normal 0.0-2.5 [facility] Comment on above: Performed By: #### C BC, ANEU, MG, ADIFF, GFR, BMP #### [address] [address] Eosinophil, Absolute 0.2 10 3/mcL Normal 0.0-0.7 [facility] Comment on above: Performed By: #### C BC, ANEU, MG, ADIFF, GFR, BMP #### [address] [address] Eosinophils/100 WBC (Bld) 4.0 % Normal 0.0-7.0 [facility] Comment on above: Performed By: #### C BC, ANEU, MG, ADIFF, GFR, BMP #### [address] [address] Lymphocyte, Absolute 0.6 10 3/mcL Low 0.9-4.3 [facility] Comment on above: Performed By: #### C BC, ANEU, MG, ADIFF, GFR, BMP #### [address] [address] Lymphocytes/100 WBC (Bld) 11.2 % Low 20.0-40.0 [facility] Comment on above: Performed By: #### C BC, ANEU, MG, ADIFF, GFR, BMP #### [address] [address] Monocyte, Absolute 0.5 10 3/mcL Normal 0.1-1.4 [facility] Comment on above: Performed By: #### C BC, ANEU, MG, ADIFF, GFR, BMP #### [address] [address] Monocytes/100 WBC (Bld) 8.8 % Normal 2.0-13.0 [facility] Comment on above: Performed By: #### C BC, ANEU, MG, ADIFF, GFR, BMP #### [address] [address] Neutrophils/100 WBC (Bld) 75.1 % High 50.0-75.0 [facility] Comment on above: Performed By: #### C BC, ANEU, MG, ADIFF, GFR, BMP #### [address] [address] .GFRon 04-06-2024 GFR 57 ml/min/1.73sqm Normal [facility] Comment on above: Result Comment: GFR Population mean for , Non- Americans Ages 20-29 = 116 mL/min/1.73 sq.m. Ages 30-39 = 107 mL/min/1.73 sq.m. Ages 40-49 = 99 mL/min/1.73 sq.m. Ages 50-59 = 93 mL/min/1.73 sq.m. Ages 60-69 = 85 mL/min/1.73 sq.m. Ages 70+ = 75 mL/min/1.73 sq.m. Chronic Kidney Disease: Less than 60 mL/min/1.73 square meters End Stage Renal Disease: Less than 15 mL/min/1.73 square meters Performed By: #### C BC, ANEU, MG, ADIFF, GFR, BMP #### [address] [address] GFR Non- 47 ml/min/1.73sqm Normal [facility] Comment on above: Result Comment: GFR Population mean for , Non- Americans Ages 20-29 = 116 mL/min/1.73 sq.m. Ages 30-39 = 107 mL/min/1.73 sq.m. Ages 40-49 = 99 mL/min/1.73 sq.m. Ages 50-59 = 93 mL/min/1.73 sq.m. Ages 60-69 = 85 mL/min/1.73 sq.m. Ages 70+ = 75 mL/min/1.73 sq.m. Chronic Kidney Disease: Less than 60 mL/min/1.73 square meters End Stage Renal Disease: Less than 15 mL/min/1.73 square meters Performed By: #### C BC, ANEU, MG, ADIFF, GFR, BMP #### [address] [address] .MDWon 04-06-2024 Monocyte Distribution Width 17.65 Normal 0.00-20.00 [facility] Comment on above: Result Comment: For ED adult patients suspected of sepsis, MDW<=20.0 does not rule out sepsis or risk of sepsis Performed By: #### C BC, ANEU, MG, ADIFF, GFR, BMP #### [place] [address] .NEUABSon 04-06-2024 Neutrophil, Absolute 4.2 10 3/mcL Normal 2.3-8.1 [facility] Comment on above: Performed By: #### C BC, ANEU, MG, ADIFF, GFR, BMP #### [place] [address] .Urinalysis Microscopic (AO) on 04-06-2024 UA Bacteria 2+ /hpf Abnormal [facility] Comment on above: Performed By: #### C BC, ANEU, MG, ADIFF, GFR, BMP #### [place] [address] UA RBC 5-10 Abnormal None Seen [facility] Comment on above: Performed By: #### C BC, ANEU, MG, ADIFF, GFR, BMP #### [place] [address] UA Squam Epithelial 0-5 Abnormal None Seen [facility] Comment on above: Performed By: #### C BC, ANEU, MG, ADIFF, GFR, BMP #### [place] [address] UA WBC LOADED Abnormal None Seen [facility] Comment on above: Performed By: #### C BC, ANEU, MG, ADIFF, GFR, BMP #### [place] [address] ACTONon 04-06-2024 Acetone (s) Small Abnormal Negative [facility] Comment on above: Performed By: #### C BC, ANEU, MG, ADIFF, GFR, BMP #### [place] [address] CBCon 04-06-2024 Erythrocyte distribution width (RBC) [Ratio] 20.0 % High 11.5-15.5 [facility] Comment on above: Performed By: #### C BC, ANEU, MG, ADIFF, GFR, BMP #### [address] [address] Hematocrit (Bld) [Volume fraction] 38.6 % Low 40.0-52.0 [facility] Comment on above: Performed By: #### C BC, ANEU, MG, ADIFF, GFR, BMP #### [address] [address] Hgb 12.4 G/dL Low 13.0-17.5 [facility] Comment on above: Performed By: #### C BC, ANEU, MG, ADIFF, GFR, BMP #### [address] [address] MCH (RBC) [Entitic mass] 27.3 pg Normal 27.0-33.0 [facility] Comment on above: Performed By: #### C BC, ANEU, MG, ADIFF, GFR, BMP #### [address] [address] MCHC 32.1 G/dL Normal 32.0-36.0 [facility] Comment on above: Performed By: #### C BC, ANEU, MG, ADIFF, GFR, BMP #### [address] [address] MCV (RBC) [Entitic vol] 84.9 fL Normal 81.0-100.0 [facility] Comment on above: Performed By: #### C BC, ANEU, MG, ADIFF, GFR, BMP #### [address] [address] Platelet 183 10 3/mcL Normal 150-450 [facility] Comment on above: Performed By: #### C BC, ANEU, MG, ADIFF, GFR, BMP #### [address] [address] Platelet mean volume (Bld) [Entitic vol] 9.5 fL Normal 6.4-10.5 [facility] Comment on above: Performed By: #### C BC, ANEU, MG, ADIFF, GFR, BMP #### [address] [address] RBC 4.55 10 6/mcL Normal 4.50-6.00 [facility] Comment on above: Performed By: #### C BC, ANEU, MG, ADIFF, GFR, BMP #### [place] [address] WBC 5.6 10 3/mcL Normal 4.5-10.8 [facility] Comment on above: Performed By: #### C BC, ANEU, MG, ADIFF, GFR, BMP #### [place] [address] CEFAZOLIN:SUSC:PT:ISOLATE:OR DQN:MICon 04-06-2024 ceFAZolin KIARA [Susc] 10,000 - 50,000 cfu /ml Methicillin-Resistant Staphylococcus aureus [facility] Albumin Level 3.2 G/dL Low 3.4-4.8 [facility] Comment on above: Performed By: #### C BC, ANEU, MG, ADIFF, GFR, BMP #### [place] [address] Albumin/Globulin [Mass ratio] 0.8 {ratio} Low 1.1-2.5 [facility] Comment on above: Performed By: #### C BC, ANEU, MG, ADIFF, GFR, BMP #### [place] [address] ALP [Catalytic activity/Vol] 78 U/L Normal 40-135 [facility] Comment on above: Performed By: #### C BC, ANEU, MG, ADIFF, GFR, BMP #### [place] [address] ALT [Catalytic activity/Vol] 16 U/L Normal 16-63 [facility] Comment on above: Performed By: #### C BC, ANEU, MG, ADIFF, GFR, BMP #### [address] [address] AST [Catalytic activity/Vol] 13 U/L Normal 10-40 [facility] Comment on above: Performed By: #### C BC, ANEU, MG, ADIFF, GFR, BMP #### [address] [address] Bili Total 0.4 mg/dL Normal 0.2-1.0 [facility] Comment on above: Result Comment: Use of this assay is not recommended for patients undergoing treatment with eltrombopag due to the potential for falsely elevated results. Performed By: #### C BC, ANEU, MG, ADIFF, GFR, BMP #### [address] [address] BUN/Creatinine Ratio 16 ratio Normal 7-27 [facility] Comment on above: Performed By: #### C BC, ANEU, MG, ADIFF, GFR, BMP #### [address] [address] Calcium [Mass/Vol] 9.2 mg/dL Normal 8.4-10.2 [facility] Comment on above: Performed By: #### C BC, ANEU, MG, ADIFF, GFR, BMP #### [address] [address] Chloride [Moles/Vol] 100 mmol/L Normal 98-107 [facility] Comment on above: Performed By: #### C BC, ANEU, MG, ADIFF, GFR, BMP #### [address] [address] CO2 [Moles/Vol] 33 mmol/L High 23-31 [facility] Comment on above: Performed By: #### C BC, ANEU, MG, ADIFF, GFR, BMP #### [address] [address] Creatinine [Mass/Vol] 1.48 mg/dL High 0.70-1.30 [facility] Comment on above: Result Comment: Test ing performed on Siemens Dimension EXL analyzer using a modified kinetic Uyen technique. Performed By: #### C BC, ANEU, MG, ADIFF, GFR, BMP #### [address] [address] Electrolyte Balance 4.0 mEq/L Normal 4.0-15.0 [facility] Comment on above: Performed By: #### C BC, ANEU, MG, ADIFF, GFR, BMP #### [address] [address] Globulin 3.9 G/dL Normal [facility] Comment on above: Performed By: #### C BC, ANEU, MG, ADIFF, GFR, BMP #### [place] [address] Glucose [Mass/Vol] 108 mg/dL Normal 80-115 [facility] Comment on above: Performed By: #### C BC, ANEU, MG, ADIFF, GFR, BMP #### [place] [address] Potassium [Moles/Vol] 4.9 mmol/L Normal 3.5-5.1 [facility] Comment on above: Performed By: #### C BC, ANEU, MG, ADIFF, GFR, BMP #### [place] [address] Sodium [Moles/Vol] 137 mmol/L Normal 136-145 [facility] [facility] Comment on above: Performed By: #### C BC, ANEU, MG, ADIFF, GFR, BMP #### [address] [address] Total Protein 7.1 G/dL Normal 6.4-8.2 [facility] Comment on above: Performed By: #### C BC, ANEU, MG, ADIFF, GFR, BMP #### [place] [address] Urea nitrogen [Mass/Vol] 24 mg/dL High 7-18 [facility] Comment on above: Performed By: #### C BC, ANEU, MG, ADIFF, GFR, BMP #### [place] [address] LABORATORYOrdered By: SYSTEM SYSTEM on 04-06-2024 Albumin BCP dye [Mass/Vol] 3.2 G/dL Low 3.4 - 4.8 G/dL AO ADM SS Albumin/Globulin [Mass ratio] 0.8 {ratio} Low 1.1 - 2.5 ratio AO ADM SS ALP [Catalytic activity/Vol] 78 U/L Normal 40 - 135 U/L AO ADM SS ALT With P-5'-P [Catalytic activity/Vol] 16 U/L Normal 16 - 63 U/L AO ADM SS AST With P-5'-P [Catalytic activity/Vol] 13 U/L Normal 10 - 40 U/L AO ADM SS Basophils (Bld) [#/Vol] 0.1 103/mcL Normal 0.0 - 0.2 10^3/mcL AO Workflow SS Basophils/100 WBC (Bld) 0.9 % Normal 0.0 - 2.5 % AO Workflow SS Bilirubin [Mass/Vol] 0.4 mg/dL Normal 0.2 - 1 .0 mg/dL AO ADM SS Comment on above: Interpretive Data: U se of this assay is not recommended for patients undergoing treatment with eltrombopag due to the potential for falsely elevated results. Calcium [Mass/Vol] 9.2 mg/dL Normal 8.4 - 10. 2 mg/dL AO ADM SS Chloride [Moles/Vol] 100 mmol/L Normal 98 - 10 7 mmol/L AO ADM SS CO2 [Moles/Vol] 33 mmol/L High 23 - 31 mmol/L AO ADM SS Creatinine [Mass/Vol] 1.48 mg/dL High 0.70 - 1.30 mg/dL AO ADM SS Comment on above: Interpretive Data: T esting performed on Siemens Dimension EXL analyzer using a modified kinetic Uyen technique. Electrolyte Balance 4.0 mEq/L Normal 4.0 - 15 .0 mEq/L AO ADM SS Eosinophil, Absolute 0.2 103/mcL Normal 0.0 - 0 .7 10^3/mcL AO Workflow SS Eosinophils/100 WBC (Bld) 4.0 % Normal 0.0 - 7.0 % AO Workflow SS Erythrocyte distribution width (RBC) [Ratio] 20.0 % High 11.5 - 15.5 % AO Workflow SS GFR/1.73 sq M.predicted among blacks MDRD (S/P/Bld) [Vol rate/Area] 57 ml/min/1.73sqm Invalid Interpretation Code AO Chemistry S Comment on above: Interpretive Data: GFR Population mean for , Non- Americans Ages 20-29 = 116 mL/min/1.73 sq.m. Ages 30-39 = 107 mL/min/1.73 sq.m. Ages 40-49 = 99 mL/min/1.73 sq.m. Ages 50-59 = 93 mL/min/1.73 sq.m. Ages 60-69 = 85 mL/min/1.73 sq.m. Ages 70+ = 75 mL/min/1.73 sq.m. Chronic Kidney Disease: Less than 60 mL/min/1.73 square meters End Stage Renal Disease: Less than 15 mL/min/1.73 square meters GFR/1.73 sq M.predicted among non-blacks MDRD (S/P/Bld) [Vol rate/Area] 47 ml/min/1.73sqm Invalid Interpretation Code AO Chemistry S Comment on above: Interpretive Data: GFR Population mean for , Non- Americans Ages 20-29 = 116 mL/min/1.73 sq.m. Ages 30-39 = 107 mL/min/1.73 sq.m. Ages 40-49 = 99 mL/min/1.73 sq.m. Ages 50-59 = 93 mL/min/1.73 sq.m. Ages 60-69 = 85 mL/min/1.73 sq.m. Ages 70+ = 75 mL/min/1.73 sq.m. Chronic Kidney Disease: Less than 60 mL/min/1.73 square meters End Stage Renal Disease: Less than 15 mL/min/1.73 square meters Globulin 3.9 G/dL Invalid Interpretation Code AO ADM SS Glucose [Mass/Vol] 108 mg/dL Normal 80 - 115 mg/dL AO ADM SS Hematocrit (Bld) [Volume fraction] 38.6 % Low 40.0 - 52.0 % AO Workflow SS Hemoglobin (Bld) [Mass/Vol] 12.4 G/dL Low 13.0 - 17.5 G/dL AO Workflow SS Lactate [Moles/Vol] 0.8 mmol/L Normal 0.4 - 2. 0 mmol/L AO ADM SS Lipase [Catalytic activity/Vol] 26 U/L Normal 16 - 77 U/L AO ADM SS Lymphocytes (Bld) [#/Vol] 0.6 103/mcL Low 0.9 - 4.3 10^3/mcL AO Workflow SS Lymphocytes/100 WBC (Bld) 11.2 % Low 20.0 - 40.0 % AO Workflow SS MCH (RBC) [Entitic mass] 27.3 pg Normal 27.0 - 33.0 pg AO Workflow SS MCHC 32.1 G/dL Normal 32.0 - 36.0 G/dL AO Workflow SS MCV (RBC) [Entitic vol] 84.9 fL Normal 81.0 - 100.0 fL AO Workflow SS Monocyte distribution width Auto (Bld) [Entitic vol] 17.65 1 Normal 0.00 - 20.00 AO Workflow SS Comment on above: Result Comment: For ED adult patients suspected of sepsis, MDW<=20.0 does not rule out sepsis or risk of sepsis Monocytes (Bld) [#/Vol] 0.5 103/mcL Normal 0.1 - 1.4 10^3/mcL AO Workflow SS Monocytes/100 WBC (Bld) 8.8 % Normal 2.0 - 13.0 % AO Workflow SS Neutrophils (Bld) [#/Vol] 4.2 103/mcL Normal 2.3 - 8.1 10^3/mcL AO Workflow SS Neutrophils/100 WBC (Bld) 75.1 % High 50.0 - 75.0 % AO Workflow SS Platelet mean volume (Bld) [Entitic vol] 9.5 fL Normal 6.4 - 10.5 fL AO Workflow SS Platelets (Bld) [#/Vol] 183 103/mcL Normal 150 - 450 10^3/mcL AO Workflow SS Potassium [Moles/Vol] 4.9 mmol/L Normal 3.5 - 5.1 mmol/L AO ADM SS Protein [Mass/Vol] 7.1 G/dL Normal 6.4 - 8.2 G/dL AO ADM SS RBC (Bld) [#/Vol] 4.55 106/mcL Normal 4.50 - 6.0 0 10^6/mcL AO Workflow SS Sodium [Moles/Vol] 137 mmol/L Normal 136 - 145 mmol/L AO ADM SS Urea nitrogen [Mass/Vol] 24 mg/dL High 7 - 18 mg/dL AO ADM SS Urea nitrogen/Creatinine [Mass ratio] 16 ratio Normal 7 - 27 ratio AO ADM SS WBC (Bld) [#/Vol] 5.6 103/mcL Normal 4.5 - 10.8 10^3/mcL AO Workflow SS LABORATORYOrdered By: Gene Mercer on 04-06-2024 Appearance (U) Slightly Cloudy *ABN* (04/06/24 9:59 AM) Invalid Interpretation Code Clear AO Auto Urine SS Bacteria LM.HPF (Urine sed) [#/Area] 2 /[HPF] Invalid Interpretation Code AO Auto Urine SS Bilirubin Ql (U) Negative (04/06/24 9:59 AM) Normal Negative AO Auto Urine SS Color (U) Yellow (04/06/24 9:59 AM) Normal AO Auto Urine SS Glucose Test strip (U) [Mass/Vol] >=1000 mg/dL Invalid Interpretation Code Negative AO Auto Urine SS Hemoglobin Auto test strip (U) [Mass/Vol] Small *ABN* (04/06/24 9:59 AM) Invalid Interpretation Code Negative AO Auto Urine SS Ketones Ql (U) 40 mg/dL Invalid Interpretation Code Negative AO Auto Urine SS UA Leuk Est Negative (04/06/24 9:59 AM) Normal Negative AO Auto Urine SS UA Nitrite Positive *ABN* (04/06/24 9:59 AM) Invalid Interpretation Code Negative AO Auto Urine SS UA pH 5.5 (04/06/24 9:59 AM) Normal 5.0 - 8.0 AO Auto Urine SS UA Protein Negative Normal Negative AO Auto Urine SS UA RBC 5-10 /HPF Invalid Interpretation Code None Seen AO Auto Urine SS UA Spec Grav >=1.030 *ABN* (04/06/24 9:59 AM) Invalid Interpretation Code 1.015-1.025 AO Auto Urine SS UA Specimen Type Martines Catheter (04/06/24 9:59 AM) Normal AO Auto Urine SS UA Squam Epithelial 0-5 /HPF Invalid Interpretation Code None Seen AO Auto Urine SS UA Urobilinogen 0.2 E.U./dL Normal 0.2-1.0 AO Auto Urine SS WBC LM.HPF (Urine sed) [#/Area] LOADED /HPF Invalid Interpretation Code None Seen AO Auto Urine SS LABORATORYOrdered By: Erickson Herr on 04-06-2024 Ketones [Mass/Vol] Small mg/dL Invalid Interpretation Code Negative AO Rapid Testing SS LACon 04-06-2024 Lactic Acid Lvl 0.8 mmol/L Normal 0.4-2.0 [facility] Comment on above: Performed By: #### C BC, ANEU, MG, ADIFF, GFR, BMP #### [address] [address] LIPon 04-06-2024 Lipase Level 26 U/L Normal 16-77 [facility] Comment on above: Performed By: #### C BC, ANEU, MG, ADIFF, GFR, BMP #### [address] [address] MALBRon 04-06-2024 U Creatinine 21.6 mg/dL Low 39.0-259.0 [facility] Comment on above: Performed By: #### C VFLURV #### [address] [address] U Microalb 1687 mcg/dL Normal [facility] Comment on above: Performed By: #### C VFLURV #### [address] [address] U Ratio Alb/Cre 78 mcg/mg High 0-30 [facility] Comment on above: Performed By: #### C VFLURV #### [address] [address] No Panel Informationon 04-06 Microscopic examination of blood, culture Culture has been received in lab and is no growth to date. Routine cultures are held for 5 days. [facility] Work Phone: UAon 04-06-2024 Color (U) Yellow Normal [facility] Comment on above: Performed By: #### C BC, ANEU, MG, ADIFF, GFR, BMP #### [address] [address] Glucose (U) [Mass/Vol] mg/dL Abnormal Negative [facility] Comment on above: Performed By: #### C BC, ANEU, MG, ADIFF, GFR, BMP #### [address] [address] Ketones Ql (U) 40 mg/dL Abnormal Negative [facility] Comment on above: Performed By: #### C BC, ANEU, MG, ADIFF, GFR, BMP #### [place] [address] UA Appear Slightly Cloudy Abnormal Clear [facility] Comment on above: Performed By: #### C BC, ANEU, MG, ADIFF, GFR, BMP #### [place] [address] UA Blood Small Abnormal Negative [facility] Comment on above: Performed By: #### C BC, ANEU, MG, ADIFF, GFR, BMP #### [place] [address] UA Leuk Est Negative Normal Negative [facility] Comment on above: Performed By: #### C BC, ANEU, MG, ADIFF, GFR, BMP #### [place] [address] UA Nitrite Positive Abnormal Negative [facility] Comment on above: Performed By: #### C BC, ANEU, MG, ADIFF, GFR, BMP #### [place] [address] UA pH 5.5 Normal 5.0 - 8.0 [facility] Comment on above: Performed By: #### C BC, ANEU, MG, ADIFF, GFR, BMP #### [place] [address] UA Protein Negative Normal Negative [facility] Comment on above: Performed By: #### C BC, ANEU, MG, ADIFF, GFR, BMP #### [place] [address] UA Spec Grav >=1.030 Abnormal 1.015-1.025 [facility] Comment on above: Performed By: #### C BC, ANEU, MG, ADIFF, GFR, BMP #### [place] [address] UA Specimen Type Martines Catheter Normal [facility] Comment on above: Performed By: #### C BC, ANEU, MG, ADIFF, GFR, BMP #### [facility] [address] [place], [place] [address] UA Urobilinogen 0.2 E.U./dL Normal 0.2-1.0 [facility] Comment on above: Performed By: #### C BC, ANEU, MG, ADIFF, GFR, BMP #### [place] [id number] [place], [place] [address] Urobilinogen (U) [Mass/Vol] Negative Normal Negative [facility] Comment on above: Performed By: #### C BC, ANEU, MG, ADIFF, GFR, BMP #### [place] [id number] [place], [place] [address] XR CHEST 1 VIEWon 04-06-2024 XR CHEST 1 VIEW ORIGINAL EXAMINATION: ONE XRAY VIEW OF THE CHEST 04/06/2024 10:24 am COMPARISON: 01/21/2024 HISTORY: ORDERING SYSTEM PROVIDED HISTORY: Reason for Exam: weakness IMPRESSION: Low lung volumes and hypoventilatory changes. Stable median sternotomy wires. Stable prominent cardiomediastinal silhouette. Central pulmonary vascular congestion with peribronchial cuffing suggesting edema. Mild prominence of the interstitium. No focal consolidations. Asymmetric elevation the right hemidiaphragm. Costophrenic angles are sharp. No pneumothorax. Left apical pleural thickening/nodularity. Multifocal mild osseous degenerative change. Short interval follow-up to resolution. Interpreted by: Mackenzie Cuenca Preliminary Report By: Mackenzie Cuenca Electronically signed By Mackenzie Cuenca Dictated Date: 04/06/2024 10:34:49 AM Prelim Date: 04/06/2024 10:36:49 AM Sign Date: 04/06/2024 10:36:49 AM Ordering Provider: TRISH Schroeder [facility] ceFAZolin KIARA [Susc]on 04-06 Methicillin-Resistant Staphylococcus aureus Methicillin-Resistant Staphylococcus aureus [facility] Work Phone: LABORATORYOrdered By: Willow Springer on 04-05-2024 Albumin DL <= 20 mg/L (U) [Mass/Vol] 1687 mcg/dL Invalid Interpretation Code AO ADM SS Albumin/Creatinine DL <= 20 mg/L (U) [Mass ratio] 78 mcg/mg High 0 - 30 mcg/mg AO ADM SS Creatinine (U) [Mass/Vol] 21.6 mg/dL Low 39.0 - 259.0 mg/dL AO ADM SS .Auto Diffon 04-04-2024 Basophil, Absolute 0.1 10 3/mcL Normal 0.0-0.2 [facility] Comment on above: Performed By: #### C BC, ANEU, MG, ADIFF, GFR, BMP #### [address] [address] Basophils/100 WBC (Bld) 0.8 % Normal 0.0-2.5 [facility] Comment on above: Performed By: #### C BC, ANEU, MG, ADIFF, GFR, BMP #### [address] [address] Eosinophil, Absolute 0.4 10 3/mcL Normal 0.0-0.7 [facility] Comment on above: Performed By: #### C BC, ANEU, MG, ADIFF, GFR, BMP #### [address] [address] Eosinophils/100 WBC (Bld) 5.8 % Normal 0.0-7.0 [facility] Comment on above: Performed By: #### C BC, ANEU, MG, ADIFF, GFR, BMP #### [address] [address] Lymphocyte, Absolute 0.9 10 3/mcL Normal 0.9-4.3 [facility] Comment on above: Performed By: #### C BC, ANEU, MG, ADIFF, GFR, BMP #### [address] [address] Lymphocytes/100 WBC (Bld) 14.4 % Low 20.0-40.0 [facility] Comment on above: Performed By: #### C BC, ANEU, MG, ADIFF, GFR, BMP #### [address] [address] Monocyte, Absolute 0.7 10 3/mcL Normal 0.1-1.4 [facility] Comment on above: Performed By: #### C BC, ANEU, MG, ADIFF, GFR, BMP #### [address] [address] Monocytes/100 WBC (Bld) 11.3 % Normal 2.0-13.0 [facility] Comment on above: Performed By: #### C BC, ANEU, MG, ADIFF, GFR, BMP #### [address] [address] Neutrophils/100 WBC (Bld) 67.7 % Normal 50.0-75.0 [facility] Comment on above: Performed By: #### C BC, ANEU, MG, ADIFF, GFR, BMP #### [address] [address] .GFRon 04-04-2024 GFR 65 ml/min/1.73sqm Normal [facility] Comment on above: Result Comment: GFR Population mean for , Non- Americans Ages 20-29 = 116 mL/min/1.73 sq.m. Ages 30-39 = 107 mL/min/1.73 sq.m. Ages 40-49 = 99 mL/min/1.73 sq.m. Ages 50-59 = 93 mL/min/1.73 sq.m. Ages 60-69 = 85 mL/min/1.73 sq.m. Ages 70+ = 75 mL/min/1.73 sq.m. Chronic Kidney Disease: Less than 60 mL/min/1.73 square meters End Stage Renal Disease: Less than 15 mL/min/1.73 square meters Performed By: #### C BC, ANEU, MG, ADIFF, GFR, BMP #### [address] [address] GFR Non- 53 ml/min/1.73sqm Normal [facility] Comment on above: Result Comment: GFR Population mean for , Non- Americans Ages 20-29 = 116 mL/min/1.73 sq.m. Ages 30-39 = 107 mL/min/1.73 sq.m. Ages 40-49 = 99 mL/min/1.73 sq.m. Ages 50-59 = 93 mL/min/1.73 sq.m. Ages 60-69 = 85 mL/min/1.73 sq.m. Ages 70+ = 75 mL/min/1.73 sq.m. Chronic Kidney Disease: Less than 60 mL/min/1.73 square meters End Stage Renal Disease: Less than 15 mL/min/1.73 square meters Performed By: #### C BC, ANEU, MG, ADIFF, GFR, BMP #### [place] [address] .MDWon 04-04-2024 Monocyte Distribution Width 22.46 High 0.00-20.00 [facility] Comment on above: Result Comment: For adults in ED, MDW>20.0 may be associated with a higher risk of sepsis during the first 12hrs of hospital admission Performed By: #### C BC, ANEU, MG, ADIFF, GFR, BMP #### [place] [address] .Morphon 04-04-2024 Platelet Estimate Normal Normal [facility] Comment on above: Performed By: #### C BC, ANEU, MG, ADIFF, GFR, BMP #### [place] [id number] .NEUABSon 04-04-2024 Neutrophil, Absolute 4.4 10 3/mcL Normal 2.3-8.1 [facility] Comment on above: Performed By: #### C BC, ANEU, MG, ADIFF, GFR, BMP #### [address] [address] .Urinalysis Microscopic (AO) on 04-04-2024 UA Bacteria 2+ /hpf Abnormal [facility] Comment on above: Performed By: #### C BC, ANEU, MG, ADIFF, GFR, BMP #### [place] [address] UA RBC 5-10 Abnormal None Seen [facility] Comment on above: Performed By: #### C BC, ANEU, MG, ADIFF, GFR, BMP #### [address] [address] UA Squam Epithelial 0-5 Abnormal None Seen [facility] Comment on above: Performed By: #### C BC, ANEU, MG, ADIFF, GFR, BMP #### [address] [address] UA WBC LOADED Abnormal None Seen [facility] Comment on above: Performed By: #### C BC, ANEU, MG, ADIFF, GFR, BMP #### [place] [address] CBCon 04-04-2024 Erythrocyte distribution width (RBC) [Ratio] 20.6 % High 11.5-15.5 [facility] Comment on above: Performed By: #### C BC, ANEU, MG, ADIFF, GFR, BMP #### [place] [address] Hematocrit (Bld) [Volume fraction] 41.7 % Normal 40.0-52.0 [facility] Comment on above: Performed By: #### C BC, ANEU, MG, ADIFF, GFR, BMP #### [place] [address] Hgb 13.4 G/dL Normal 13.0-17.5 [facility] Comment on above: Performed By: #### C BC, ANEU, MG, ADIFF, GFR, BMP #### [place] [address] MCH (RBC) [Entitic mass] 27.1 pg Normal 27.0-33.0 [facility] Comment on above: Performed By: #### C BC, ANEU, MG, ADIFF, GFR, BMP #### [place] [address] MCHC 32.1 G/dL Normal 32.0-36.0 [facility] Comment on above: Performed By: #### C BC, ANEU, MG, ADIFF, GFR, BMP #### [place] [address] MCV (RBC) [Entitic vol] 84.6 fL Normal 81.0-100.0 [facility] Comment on above: Performed By: #### C BC, ANEU, MG, ADIFF, GFR, BMP #### [address] [address] Platelet 197 10 3/mcL Normal 150-450 [facility] Comment on above: Performed By: #### C BC, ANEU, MG, ADIFF, GFR, BMP #### [address] [address] Platelet mean volume (Bld) [Entitic vol] 9.8 fL Normal 6.4-10.5 [facility] Comment on above: Performed By: #### C BC, ANEU, MG, ADIFF, GFR, BMP #### [address] [address] RBC 4.93 10 6/mcL Normal 4.50-6.00 [facility] Comment on above: Performed By: #### C BC, ANEU, MG, ADIFF, GFR, BMP #### [address] [address] WBC 6.6 10 3/mcL Normal 4.5-10.8 [facility] Comment on above: Performed By: #### C BC, ANEU, MG, ADIFF, GFR, BMP #### [address] [address] CMPon 04-04-2024 Albumin Level 3.1 G/dL Low 3.4-4.8 [facility] Comment on above: Performed By: #### C BC, ANEU, MG, ADIFF, GFR, BMP #### [place] [id number] Albumin/Globulin [Mass ratio] 0.7 {ratio} Low 1.1-2.5 [facility] Comment on above: Performed By: #### C BC, ANEU, MG, ADIFF, GFR, BMP #### [place] [id number] ALP [Catalytic activity/Vol] 80 U/L Normal 40-135 [facility] Comment on above: Performed By: #### C BC, ANEU, MG, ADIFF, GFR, BMP #### [address] [address] ALT [Catalytic activity/Vol] 18 U/L Normal 16-63 [facility] Comment on above: Performed By: #### C BC, ANEU, MG, ADIFF, GFR, BMP #### [address] [address] AST [Catalytic activity/Vol] 21 U/L Normal 10-40 [facility] Comment on above: Performed By: #### C BC, ANEU, MG, ADIFF, GFR, BMP #### [address] [address] Bili Total 0.3 mg/dL Normal 0.2-1.0 [facility] Comment on above: Result Comment: Use of this assay is not recommended for patients undergoing treatment with eltrombopag due to the potential for falsely elevated results. Performed By: #### C BC, ANEU, MG, ADIFF, GFR, BMP #### [address] [address] BUN/Creatinine Ratio 20 ratio Normal 7-27 [facility] Comment on above: Performed By: #### C BC, ANEU, MG, ADIFF, GFR, BMP #### [address] [address] Calcium [Mass/Vol] 8.7 mg/dL Normal 8.4-10.2 [facility] Comment on above: Performed By: #### C BC, ANEU, MG, ADIFF, GFR, BMP #### [address] [address] Chloride [Moles/Vol] 104 mmol/L Normal 98-107 [facility] Comment on above: Performed By: #### C BC, ANEU, MG, ADIFF, GFR, BMP #### [address] [address] CO2 [Moles/Vol] 32 mmol/L High 23-31 [facility] Comment on above: Performed By: #### C BC, ANEU, MG, ADIFF, GFR, BMP #### [address] [address] Creatinine [Mass/Vol] 1.33 mg/dL High 0.70-1.30 [facility] Comment on above: Result Comment: Test ing performed on Siemens Dimension EXL analyzer using a modified kinetic Uyen technique. Performed By: #### C BC, ANEU, MG, ADIFF, GFR, BMP #### [address] [address] Electrolyte Balance 3.0 mEq/L Low 4.0-15.0 [facility] Comment on above: Performed By: #### C BC, ANEU, MG, ADIFF, GFR, BMP #### [address] [address] Globulin 4.3 G/dL Normal [facility] Comment on above: Performed By: #### C BC, ANEU, MG, ADIFF, GFR, BMP #### [address] [address] Glucose [Mass/Vol] 123 mg/dL High 80-115 [facility] Comment on above: Performed By: #### C BC, ANEU, MG, ADIFF, GFR, BMP #### [address] [address] Potassium [Moles/Vol] 4.9 mmol/L Normal 3.5-5.1 [facility] Comment on above: Performed By: #### C BC, ANEU, MG, ADIFF, GFR, BMP #### [address] [address] Sodium [Moles/Vol] 139 mmol/L Normal 136-145 [facility] Comment on above: Performed By: #### C BC, ANEU, MG, ADIFF, GFR, BMP #### [address] [address] Total Protein 7.4 G/dL Normal 6.4-8.2 [facility] Comment on above: Performed By: #### C BC, ANEU, MG, ADIFF, GFR, BMP #### [facility] [address] [place], [place] [address] Urea nitrogen [Mass/Vol] 26 mg/dL High 7-18 [facility] Comment on above: Performed By: #### C BC, ANEU, MG, ADIFF, GFR, BMP #### [facility] [address] [place], [place] [address] CT ABD/PELVIS W/ IV CONTRAST ONLYon 04-04-2024 CT ABD/PELVIS W/ IV CONTRAST ONLY ORIGINAL EXAMINATION: CT OF THE ABDOMEN AND PELVIS WITH CONTRAST 04/04/2024 11:14 pm TECHNIQUE: CT of the abdomen and pelvis was performed with the administration of intravenous contrast. Multiplanar reformatted images are provided for review. Automated exposure control, iterative reconstruction, and/or weight based adjustment of the mA/kV was utilized to reduce the radiation dose to as low as reasonably achievable. COMPARISON: CT July 02, 2021. HISTORY: ORDERING SYSTEM PROVIDED HISTORY: Reason for Exam: abdominal pain FINDINGS: Lower Chest: No focal consolidation. Organs: Gallstones within a nondistended gallbladder. Bilateral renal cysts, some of which are too small to characterize. 0.6 cm nonobstructing nephrolithiasis in the left kidney. Unchanged size and appearance to left inferior pole renal mass; correlate with prior biopsy results. Left adrenal gland unchanged. GI/Bowel: Right lower quadrant bowel postsurgical changes. Gaseous distension of the sigmoid colon. Mild to moderate amount of stool and gas in the upstream colon. Nearly decompressed distal sigmoid colon and rectum. Pelvis: Small amount of air within the urinary bladder. Martines catheter balloon is inflated within the prostatic urethra inferiorly; suggest repositioning. Enlarged prostate. Peritoneum/Retroperiton eum: Nonaneurysmal abdominal aorta with atherosclerotic plaque. Nonspecific mildly prominent inguinal lymph nodes. Bones/Soft Tissues: Right inguinal postsurgical change. Degenerative change of the spine. IMPRESSION: Gaseous distension of the sigmoid colon with decompressed upstream and downstream segments. No twisting of the mesentery at the time of this exam to suggest volvulus. Martines catheter balloon is inflated within the prostatic urethra inferiorly; suggest repositioning. Interpreted by: Luis Jeffries Preliminary Report By: Luis Jeffries Electronically signed By Luis Jeffries Dictated Date: 04/04/2024 11:17:01 PM Prelim Date: 04/04/2024 11:30:06 PM Sign Date: 04/04/2024 11:30:06 PM Ordering Provider: POORNIMA Schroeder [facility] LABORATORYOrdered By: April Calixto on 04-04-2024 Appearance (U) Cloudy *ABN* (04/04/24 11:14 PM) Invalid Interpretation Code Clear AO Auto Urine SS Bacteria LM.HPF (Urine sed) [#/Area] 2 /[HPF] Invalid Interpretation Code AO Auto Urine SS Bilirubin Ql (U) Negative (04/04/24 11:14 PM) Normal Negative AO Auto Urine SS Color (U) Yellow (04/04/24 11:14 PM) Normal AO Auto Urine SS Glucose Test strip (U) [Mass/Vol] 500 mg/dL Invalid Interpretation Code Negative AO Auto Urine SS Hemoglobin Auto test strip (U) [Mass/Vol] Moderate *ABN* (04/04/24 11:14 PM) Invalid Interpretation Code Negative AO Auto Urine SS Ketones Ql (U) Negative Normal Negative AO Auto Urine SS UA Leuk Est Small *ABN* (04/04/24 11:14 PM) Invalid Interpretation Code Negative AO Auto Urine SS UA Nitrite Positive *ABN* (04/04/24 11:14 PM) Invalid Interpretation Code Negative AO Auto Urine SS UA pH 5.5 (04/04/24 11:14 PM) Normal 5.0 - 8.0 AO Auto Urine SS UA Protein Negative Normal Negative AO Auto Urine SS UA RBC 5-10 /HPF Invalid Interpretation Code None Seen AO Auto Urine SS UA Spec Grav 1.015 (04/04/24 11:14 PM) Normal 1.015-1.025 AO Auto Urine SS UA Specimen Type Clean Catch (04/04/24 11:14 PM) Normal AO Auto Urine SS UA Squam Epithelial 0-5 /HPF Invalid Interpretation Code None Seen AO Auto Urine SS UA Urobilinogen 0.2 E.U./dL Normal 0.2-1.0 AO Auto Urine SS WBC LM.HPF (Urine sed) [#/Area] LOADED /HPF Invalid Interpretation Code None Seen AO Auto Urine SS Platelets LM Ql (Bld) Normal (04/04/24 10:05 PM) Normal AO Hematology S LABORATORYOrdered By: SYSTEM SYSTEM on 04-04-2024 Albumin BCP dye [Mass/Vol] 3.1 G/dL Low 3.4 - 4.8 G/dL AO ADM SS Albumin/Globulin [Mass ratio] 0.7 {ratio} Low 1.1 - 2.5 ratio AO ADM SS ALP [Catalytic activity/Vol] 80 U/L Normal 40 - 135 U/L AO ADM SS ALT With P-5'-P [Catalytic activity/Vol] 18 U/L Normal 16 - 63 U/L AO ADM SS AST With P-5'-P [Catalytic activity/Vol] 21 U/L Normal 10 - 40 U/L AO ADM SS Basophils (Bld) [#/Vol] 0.1 103/mcL Normal 0.0 - 0.2 10^3/mcL AO Workflow SS Basophils/100 WBC (Bld) 0.8 % Normal 0.0 - 2.5 % AO Workflow SS Bilirubin [Mass/Vol] 0.3 mg/dL Normal 0.2 - 1 .0 mg/dL AO ADM SS Comment on above: Interpretive Data: U se of this assay is not recommended for patients undergoing treatment with eltrombopag due to the potential for falsely elevated results. Calcium [Mass/Vol] 8.7 mg/dL Normal 8.4 - 10. 2 mg/dL AO ADM SS Chloride [Moles/Vol] 104 mmol/L Normal 98 - 10 7 mmol/L AO ADM SS CO2 [Moles/Vol] 32 mmol/L High 23 - 31 mmol/L AO ADM SS Creatinine [Mass/Vol] 1.33 mg/dL High 0.70 - 1.30 mg/dL AO ADM SS Comment on above: Interpretive Data: T esting performed on Siemens Dimension EXL analyzer using a modified kinetic Uyen technique. Electrolyte Balance 3.0 mEq/L Low 4.0 - 15 .0 mEq/L AO ADM SS Eosinophil, Absolute 0.4 103/mcL Normal 0.0 - 0 .7 10^3/mcL AO Workflow SS Eosinophils/100 WBC (Bld) 5.8 % Normal 0.0 - 7.0 % AO Workflow SS Erythrocyte distribution width (RBC) [Ratio] 20.6 % High 11.5 - 15.5 % AO Workflow SS GFR/1.73 sq M.predicted among blacks MDRD (S/P/Bld) [Vol rate/Area] 65 ml/min/1.73sqm Invalid Interpretation Code AO Chemistry S Comment on above: Interpretive Data: GFR Population mean for , Non- Americans Ages 20-29 = 116 mL/min/1.73 sq.m. Ages 30-39 = 107 mL/min/1.73 sq.m. Ages 40-49 = 99 mL/min/1.73 sq.m. Ages 50-59 = 93 mL/min/1.73 sq.m. Ages 60-69 = 85 mL/min/1.73 sq.m. Ages 70+ = 75 mL/min/1.73 sq.m. Chronic Kidney Disease: Less than 60 mL/min/1.73 square meters End Stage Renal Disease: Less than 15 mL/min/1.73 square meters GFR/1.73 sq M.predicted among non-blacks MDRD (S/P/Bld) [Vol rate/Area] 53 ml/min/1.73sqm Invalid Interpretation Code AO Chemistry S Comment on above: Interpretive Data: GFR Population mean for , Non- Americans Ages 20-29 = 116 mL/min/1.73 sq.m. Ages 30-39 = 107 mL/min/1.73 sq.m. Ages 40-49 = 99 mL/min/1.73 sq.m. Ages 50-59 = 93 mL/min/1.73 sq.m. Ages 60-69 = 85 mL/min/1.73 sq.m. Ages 70+ = 75 mL/min/1.73 sq.m. Chronic Kidney Disease: Less than 60 mL/min/1.73 square meters End Stage Renal Disease: Less than 15 mL/min/1.73 square meters Globulin 4.3 G/dL Invalid Interpretation Code AO ADM SS Glucose [Mass/Vol] 123 mg/dL High 80 - 115 mg/dL AO ADM SS Hematocrit (Bld) [Volume fraction] 41.7 % Normal 40.0 - 52.0 % AO Workflow SS Hemoglobin (Bld) [Mass/Vol] 13.4 G/dL Normal 13.0 - 17.5 G/dL AO Workflow SS Lipase [Catalytic activity/Vol] 44 U/L Normal 16 - 77 U/L AO ADM SS Lymphocytes (Bld) [#/Vol] 0.9 103/mcL Normal 0.9 - 4.3 10^3/mcL AO Workflow SS Lymphocytes/100 WBC (Bld) 14.4 % Low 20.0 - 40.0 % AO Workflow SS MCH (RBC) [Entitic mass] 27.1 pg Normal 27.0 - 33.0 pg AO Workflow SS MCHC 32.1 G/dL Normal 32.0 - 36.0 G/dL AO Workflow SS MCV (RBC) [Entitic vol] 84.6 fL Normal 81.0 - 100.0 fL AO Workflow SS Monocyte distribution width Auto (Bld) [Entitic vol] 22.46 1 High 0.00 - 20.00 AO Workflow SS Comment on above: Result Comment: For adults in ED, MDW>20.0 may be associated with a higher risk of sepsis during the first 12hrs of hospital admission Monocytes (Bld) [#/Vol] 0.7 103/mcL Normal 0.1 - 1.4 10^3/mcL AO Workflow SS Monocytes/100 WBC (Bld) 11.3 % Normal 2.0 - 13.0 % AO Workflow SS Neutrophils (Bld) [#/Vol] 4.4 103/mcL Normal 2.3 - 8.1 10^3/mcL AO Workflow SS Neutrophils/100 WBC (Bld) 67.7 % Normal 50.0 - 75.0 % AO Workflow SS Platelet mean volume (Bld) [Entitic vol] 9.8 fL Normal 6.4 - 10.5 fL AO Workflow SS Platelets (Bld) [#/Vol] 197 103/mcL Normal 150 - 450 10^3/mcL AO Workflow SS Potassium [Moles/Vol] 4.9 mmol/L Normal 3.5 - 5.1 mmol/L AO ADM SS Protein [Mass/Vol] 7.4 G/dL Normal 6.4 - 8.2 G/dL AO ADM SS RBC (Bld) [#/Vol] 4.93 106/mcL Normal 4.50 - 6.0 0 10^6/mcL AO Workflow SS Sodium [Moles/Vol] 139 mmol/L Normal 136 - 145 mmol/L AO ADM SS Urea nitrogen [Mass/Vol] 26 mg/dL High 7 - 18 mg/dL AO ADM SS Urea nitrogen/Creatinine [Mass ratio] 20 ratio Normal 7 - 27 ratio AO ADM SS WBC (Bld) [#/Vol] 6.6 103/mcL Normal 4.5 - 10.8 10^3/mcL AO Workflow SS LIPon 04-04-2024 Lipase Level 44 U/L Normal 16-77 [facility] Comment on above: Performed By: #### C BC, ANEU, MG, ADIFF, GFR, BMP #### [address] [address] UAon 04-04-2024 Color (U) Yellow Normal [facility] Comment on above: Performed By: #### C BC, ANEU, MG, ADIFF, GFR, BMP #### [address] [address] Glucose (U) [Mass/Vol] 500 mg/dL Abnormal Negative [facility] Comment on above: Performed By: #### C BC, ANEU, MG, ADIFF, GFR, BMP #### [address] [address] Ketones Ql (U) Negative Normal Negative [facility] Comment on above: Performed By: #### C BC, ANEU, MG, ADIFF, GFR, BMP #### [address] [address] UA Appear Cloudy Abnormal Clear [facility] Comment on above: Performed By: #### C BC, ANEU, MG, ADIFF, GFR, BMP #### [address] [address] UA Blood Moderate Abnormal Negative [facility] Comment on above: Performed By: #### C BC, ANEU, MG, ADIFF, GFR, BMP #### [address] [address] UA Leuk Est Small Abnormal Negative [facility] Comment on above: Performed By: #### C BC, ANEU, MG, ADIFF, GFR, BMP #### [address] [address] UA Nitrite Positive Abnormal Negative [facility] Comment on above: Performed By: #### C BC, ANEU, MG, ADIFF, GFR, BMP #### [address] [address] UA pH 5.5 Normal 5.0 - 8.0 [facility] Comment on above: Performed By: #### C BC, ANEU, MG, ADIFF, GFR, BMP #### [address] [address] UA Protein Negative Normal Negative [facility] Comment on above: Performed By: #### C BC, ANEU, MG, ADIFF, GFR, BMP #### [address] [address] UA Spec Grav 1.015 Normal 1.015-1.025 [facility] Comment on above: Performed By: #### C BC, ANEU, MG, ADIFF, GFR, BMP #### [place] [address] UA Specimen Type Clean Catch Normal [facility] Comment on above: Performed By: #### C BC, ANEU, MG, ADIFF, GFR, BMP #### [address] [address] UA Urobilinogen 0.2 E.U./dL Normal 0.2-1.0 [facility] Comment on above: Performed By: #### C BC, ANEU, MG, ADIFF, GFR, BMP #### [place] [address] Urobilinogen (U) [Mass/Vol] Negative Normal Negative [facility] Comment on above: Performed By: #### C BC, ANEU, MG, ADIFF, GFR, BMP #### [address] [address] US RENALon 03-15-2024 US RENAL ORIGINAL EXAMINATION: LIMITED RETROPERITONEAL ULTRASOUND03/15/2024 9:04 am TECHNIQUE: Multiple real time sonographic images of the urinary system were obtained assessing humphrey-scale appearance and color Doppler. All images are recorded and archived. COMPARISON: Renal ultrasound 08/19/2021, CT abdomen pelvis 07/02/2021 HISTORY: ORDERING SYSTEM PROVIDED HISTORY: Reason for Exam: HX Kidney cancerpatient has a Martines catheter in place FINDINGS: RIGHT KIDNEY: The right kidney measures approximately 11.0 cm in length. Normal echogenicity and no evidence for pelvicaliectasis, sonographically detectable cortical mass, obvious nephrolithiasis, or abnormal perinephric fluid collection. Normal cortical thickness. Multiple simple appearing right renal cyst measuring up to 2.9 cm at the right upper pole and 2.3 cm at the right midpole. LEFT KIDNEY: The left kidney measures approximate 11.5 cm in length. Normal echogenicity and no evidence for pelvicaliectasis, obvious nephrolithiasis, or abnormal perinephric fluid collection. Normal cortical thickness. 7.4 x 7.1 x 6.0 cm ill-defined, heterogeneous, predominantly hyperechoic left lower pole renal mass with posterior acoustic shadowing is present. No internal vascularity of this mass is noted doppler images. This mass is not significantly changed in size from prior renal ultrasound (previously 7.2 x 6.8 x 7.7 cm). Large simple appearing left renal cysts are present measuring 5.7 x 5.7 x 6.5 cm at the left upper pole and 6.3 x 6.0 x 5.9 cm at the left lower pole. BLADDER: The bladder is completely collapsed limiting its evaluation. IMPRESSION: Large solid left lower pole renal mass is stable. This has been biopsied previously.. Multiple bilateral renal cysts measuring up to 2.9 cm on the right and 6.5 cm on the left. I have personally reviewed the images of this examination and agree with the resident's findings and interpretation. Interpreted by: Reginaldo Owen MD Preliminary Report By: Jaquelin Dowling Electronically signed By Reginaldo Owen MD Dictated Date: 03/15/2024 1:53:23 PM Prelim Date: 03/15/2024 4:55:52 PM Sign Date: 03/15/2024 4:55:52 PM Ordering Provider: GAVINO Schroeder [facility] ([place] History AND Physic mathew 03-15-2024 Wound Ctr History & Physical Normal [facility] CNOVon 02-17-2024 CNOV Office Visit (URCANT ) JADON ALVAREZ ([id number]) 1955 M Date Time Provider Department 02/17/24 8:30 AM SHAR DOWNS URCANT During your visit today, we recorded the following information about you: Eli Bull RN 02/17/2024 8:49 AM Signed Adjunct Instructor Chemistry assist with procedure Martines catheter balloon deflated and catheter removed and discarded intact for procedure QUIN Huang Christopher J, MD 02/17/2024 9:05 AM Signed [facility] POST-CYSTOSCOPY INSTRUCTIONS You have undergone a cystoscopy. Your doctor has visualized your lower urinary tract using a scope. WHAT TO EXPECT: Possible burning during urination and/or blood-tinged urine for up to 72 hours. WHAT TO DO: Resume normal activity aside from no heavy lifting/pushing/pulling (25 lbs) for 24 hours. Continue current medications (unless instructed by physician) If an antibiotic was prescribed, your physician will have instructed you to pick the medication up at your pharmacy. Drink 6-8 glasses of fluid (water is best) each day for 3 days to help flush your urinary system. If a stent was removed, you may have have cramping or spasm in your bladder or kidney for up to 72 hours. You may take OTC acetaminophen or ibuprofen for discomfort. WHEN TO CALL THE DOCTOR: If you have a temperature over 101 degrees Fahrenheit. If you are unable to urinate. If blood clots form in your urine. If your urine becomes very bloody and does not clear with drinking extra fluids. Thank you. Shar Downs MD 02/17/2024 9:10 AM Signed [facility] PROCEDURE NOTE PATIENT: Jadon Alvarez (68 year old) DATE OF SERVICE: 02/17/2024 PRE-OPERATIVE DIAGNOSIS: BPH with obstruction, urinary retention, difficult Martines insert POST-OPERATIVE DIAGNOSIS: same PROCEDURE: Cystoscopy, Martines catheter change ANESTHESIA: Local BLOOD LOSS: none SPECIMENS: none COMPLICATIONS: None FINDINGS: Urethra normal. Prostate moderate trilobar enlargement, especially of the lateral lobes that appears completely obstructing. Fossa 5 cm length. Bladder surveyed entirely. No stones. No tumors or lesions. Normal capacity. Moderate bladder trabeculation. Martines changed today (16 Fr Coude) INDICATIONS: Jadon Alvarez is a 68 year old male who presents for cystoscopy. We discussed the planned procedure. Risks, benefits, and alternatives of the procedure were discussed. Patient acknowledges understanding and consents to proceed. PROCEDURE DETAIL: Patient?s identity was confirmed, written informed consent was obtained, and the time out performed before the procedure was initiated. Adjunct Instructor Chemistry offered and present for procedure. Prior Martines removed The patient was placed on the procedure table in the supine position and prepped and draped in the usual sterile fashion. 2% Lidocaine Jelly was placed per urethra as an anesthetic in the standard fashion. Once adequate local anesthesia was achieved, the tip of the flexible cystoscope was carefully placed into the urethra under direct visual guidance. The scope was negotiated through the urethra to the level of the bladder. The bladder was entered and careful nina-endoscopy was carried out. The posterior, superior and lateral gamino and dome of the bladder were all well visualized and the scope was retroflexed upon itself. At the conclusion of the procedure, the flexible cystoscope was removed atraumatically. A new 16 Fr Coude was placed (Coude necessary due to the BPH). The patient tolerated the procedure without complications. DISPOSITION: The patient tolerated the procedure well. Discharge to home. Postoperative care, limitations, and expectations were reviewed with the patient. We discussed concerning signs and symptoms and patient knows to report these immediately. If unable to reach their urologist, patient knows to report to emergency department for evaluation. 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 Patient is not currently a surgical candidate due to his multiple active medical issues. Procedures would carry high risk of complications at this time. Recommend 4 week Martines changes and return in 6 months. If his health improves, could consider a TURP or other BPH procedure. ORDERS TODAY: Orders Placed This Encounter MARTINES-DISCONTINUE CYSTO.PANENDO lidocaine urojet 2 % 11 mL topical gel (GLYDO) UNIVERSAL PROTOCOL / SAFETY CHECKLIST A Moment of CARE was completed. Sign In: History and Physical on chart: Compl (more content not included)... [facility] BCIDon 01-22-2024 Acinetobacter elver-baumanii complex Not detected Normal Not Detected [facility] [place] Comment on above: Order Comment: amina [facility] at [facility] [place], 01/22/2024 12:56:29 EDT//JV Performed By: #### C BC, ADIFF, ANEU, BMP, GFR #### [address] [place] [id number] [place], [place] [address] Bacteroides fragilis Not detected Normal Not Detected [facility] [place] Comment on above: Order Comment: amina burnett at [facility], 01/22/2024 12:56:29 EDT//JV Performed By: #### C BC, ADIFF, ANEU, BMP, GFR #### [address] [place], [place] [address] BCID Comment See Comment Normal [facility] [place] Comment on above: Order Comment: amina [facility] at [facility] [place], 01/22/2024 12:56:29 EDT//JV Result Comment: Anti microbial resistance can occur via multiple mechanisms. A Not Detected result for antimicrobial resistance gene(s) does not indicate antimicrobial susceptibility. Culture identification and susceptibility results to follow. If BCID panel was negative (Not Detected) for all targets, this does not exclude a blood stream infection. Our blood culture system detected growth. Culture identification and susceptibility testing (if appropriate) to follow. Performed By: #### C BC, ADIFF, ANEU, BMP, GFR #### Denise [address] [address] Christiana albicans Not detected Normal Not Detected [facility] ([place]) Comment on above: Order Comment: amina burnett at [facility], 01/22/2024 12:56:29 EDT//JV Performed By: #### C BC, ADIFF, ANEU, BMP, GFR #### Denise [address] [address] Christiana auris Not detected Normal Not Detected [facility] ([place]) Comment on above: Order Comment: amina burnett at [facility] [place], 01/22/2024 12:56:29 EDT//JV Performed By: #### C BC, ADIFF, ANEU, BMP, GFR #### Denise [address] [address] Christiana glabrata Not detected Normal Not Detected [facility] [place] Comment on above: Order Comment: amina burnett at [facility] [place], 01/22/2024 12:56:29 EDT//JV Performed By: #### C BC, ADIFF, ANEU, BMP, GFR #### Denise [address] [address] Christiana krusei Not detected Normal Not Detected [facility] [place] Comment on above: Order Comment: amina burnett at [facility] [place], 01/22/2024 12:56:29 EDT//JV Performed By: #### C BC, ADIFF, ANEU, BMP, GFR #### Denise [address] [address] Christiana parapsilosis Not detected Normal Not Detected [facility] [place] Comment on above: Order Comment: amina burnett at [facility] [place], 01/22/2024 12:56:29 EDT//JV Performed By: #### C BC, ADIFF, ANEU, BMP, GFR #### [address] [address] Christiana tropicalis Not detected Normal Not Detected [facility] [place] Comment on above: Order Comment: [facility] [place], 01/22/2024 12:56:29 EDT//JV Performed By: #### C BC, ADIFF, ANEU, BMP, GFR #### [address] [address] Cryptococcus neoformans-gattii Not detected Normal Not Detected [facility] [place] Comment on above: Order Comment: amina burnett at [facility] [place], 01/22/2024 12:56:29 EDT//JV Performed By: #### C BC, ADIFF, ANEU, BMP, GFR #### [place] [id number] CTX-M (ESBL) Not Applicable Normal Not Detected [facility] ([place] Comment on above: Order Comment: amina burnett at [facility] [place], 01/22/2024 12:56:29 EDT//JV Performed By: #### C BC, ADIFF, ANEU, BMP, GFR #### [address] [address] E. Coli Not detected Normal Not Detected [facility] [place] Comment on above: Order Comment: amina [facility] at [facility] [place], 01/22/2024 12:56:29 EDT//JV Performed By: #### C BC, ADIFF, ANEU, BMP, GFR #### [address] [address] Enterobacter cloacae Complex Not detected Normal Not Detected [facility] [place] Comment on above: Order Comment: amina [facility] [place], 01/22/2024 12:56:29 EDT//JV Performed By: #### C BC, ADIFF, ANEU, BMP, GFR #### [address] [address] Enterobacterales Not detected Normal Not Detected [facility] [place] Comment on above: Order Comment: amina [facility] at [facility] [place], 01/22/2024 12:56:29 EDT//JV Performed By: #### C BC, ADIFF, ANEU, BMP, GFR #### [address] [address] Enterococcus faecalis Detected Abnormal Not Detected [facility] [place] Comment on above: Order Comment: amina [facility] [place], 01/22/2024 12:56:29 EDT//JV Performed By: #### C BC, ADIFF, ANEU, BMP, GFR #### [address] [address] Enterococcus faecium Not detected Normal Not Detected [facility] [place] Comment on above: Order Comment: amina [facility] [place], 01/22/2024 12:56:29 EDT//JV Performed By: #### C BC, ADIFF, ANEU, BMP, GFR #### [address] [address] Haemophilus influenzae Not detected Normal Not Detected [facility] [place] Comment on above: Order Comment: amina burnett at [facility] [place], 01/22/2024 12:56:29 EDT//JV Performed By: #### C BC, ADIFF, ANEU, BMP, GFR #### [address] [address] IMP (Carbapenemase) Not Applicable Normal Not Detected [facility] [place] Comment on above: Order Comment: amina [facility] [place], 01/22/2024 12:56:29 EDT//JV Performed By: #### C BC, ADIFF, ANEU, BMP, GFR #### [address] [address] Klebsiella aerogenes Not detected Normal Not Detected [facility] [place] Comment on above: Order Comment: amina [facility] [place], 01/22/2024 12:56:29 EDT//JV Performed By: #### C BC, ADIFF, ANEU, BMP, GFR #### [address] [address] Klebsiella oxytoca Not detected Normal Not Detected [facility] [place] Comment on above: Order Comment: amina [facility] [place], 01/22/2024 12:56:29 EDT//JV Performed By: #### C BC, ADIFF, ANEU, BMP, GFR #### [address] [address] Klebsiella pneumoniae group Not detected Normal Not Detected [facility] [place] Comment on above: Order Comment: amina [facility] [place], 01/22/2024 12:56:29 EDT//JV Performed By: #### C BC, ADIFF, ANEU, BMP, GFR #### [address] [address] KPC (Carbapenemase) Not Applicable Normal Not Detected [facility] [place] Comment on above: Order Comment: amina [facility] [place], 01/22/2024 12:56:29 EDT//JV Performed By: #### C BC, ADIFF, ANEU, BMP, GFR #### [address] [address] Listeria monocytogenes Not detected Normal Not Detected [facility] [place] Comment on above: Order Comment: amina [facility] [place], 01/22/2024 12:56:29 EDT//JV Performed By: #### C BC, ADIFF, ANEU, BMP, GFR #### [address] [address] MCR-1 (Colistin Resistance) Not Applicable Normal Not Detected [facility] [place] Comment on above: Order Comment: amina [facility] [place], 01/22/2024 12:56:29 EDT//JV Performed By: #### C BC, ADIFF, ANEU, BMP, GFR #### [address] [address] Mec A/C Not Applicable Normal Not Detected [facility] [place] Comment on above: Order Comment: amina [facility] [place], 01/22/2024 12:56:29 EDT//JV Performed By: #### C BC, ADIFF, ANEU, BMP, GFR #### [address] [address] Mec A/C-MREJ (MRSA) Not Applicable Normal Not Detected [facility] [place] Comment on above: Order Comment: amina burnett at [facility] [place], 01/22/2024 12:56:29 EDT//JV Performed By: #### C BC, ADIFF, ANEU, BMP, GFR #### [address] [address] NDM (Carbapenemase) Not Applicable Normal Not Detected [facility] [place] Comment on above: Order Comment: amina burnett at [facility] [place], 01/22/2024 12:56:29 EDT//JV Performed By: #### C BC, ADIFF, ANEU, BMP, GFR #### [address] [address] Neisseria meningitidis (Encapsalated) Not detected Normal Not Detected [facility] [place] Comment on above: Order Comment: amina [facility] [place], 01/22/2024 12:56:29 EDT//JV Performed By: #### C BC, ADIFF, ANEU, BMP, GFR #### [address] [address] OXA-48 like (Carbapenemase) Not Applicable Normal Not Detected [facility] [place] Comment on above: Order Comment: amina burnett at [facility] [place], 01/22/2024 12:56:29 EDT//JV Performed By: #### C BC, ADIFF, ANEU, BMP, GFR #### Denise [address] [address] Proteus Not detected Normal Not Detected [facility] [place] Comment on above: Order Comment: amina burnett at [facility] [place], 01/22/2024 12:56:29 EDT//JV Performed By: #### C BC, ADIFF, ANEU, BMP, GFR #### Denise [address] [address] Pseudomonas aeruginosa Not detected Normal Not Detected [facility] [place] Comment on above: Order Comment: amina burnett at [facility] [place], 01/22/2024 12:56:29 EDT//JV Performed By: #### C BC, ADIFF, ANEU, BMP, GFR #### Denies [address] [address] S. agalactiae Org specific cx Ql (Vag fld) Not detected Normal Not Detected [facility] [place] Comment on above: Order Comment: amina burnett at [facility] [place], 01/22/2024 12:56:29 EDT//JV Performed By: #### C BC, ADIFF, ANEU, BMP, GFR #### [address]ise [address] [address] Salmonella species Not detected Normal Not Detected [facility] [place] Comment on above: Order Comment: amina burnett at [facility] [place], 01/22/2024 12:56:29 EDT//JV Performed By: #### C BC, ADIFF, ANEU, BMP, GFR #### [address]ise [address] [address] Serratia marcescens Not detected Normal Not Detected [facility] [place] Comment on above: Order Comment: amina burnett at [facility] [place], 01/22/2024 12:56:29 EDT//JV Performed By: #### C BC, ADIFF, ANEU, BMP, GFR #### [address] [address] Staphylococcus Detected Abnormal Not Detected [facility] [place] Comment on above: Order Comment: [facility] [place], 01/22/2024 12:56:29 EDT//JV Performed By: #### C BC, ADIFF, ANEU, BMP, GFR #### [address] [address] Staphylococcus aureus Not detected Normal Not Detected [facility] ([place]) Comment on above: Order Comment: [facility], 01/22/2024 12:56:29 EDT//JV Result Comment: If S taphylococcus aureus is Detected, an Infectious Disease physician consult is required on identification. Performed By: #### C BC, ADIFF, ANEU, BMP, GFR #### [address] [address] Staphylococcus epidermidis Not detected Normal Not Detected [facility] ([place]) Comment on above: Order Comment: [facility], 01/22/2024 12:56:29 EDT//JV Performed By: #### C BC, ADIFF, ANEU, BMP, GFR #### [address] [address] Staphylococcus lugdunensis Not detected Normal Not Detected [facility] ([place]) Comment on above: Order Comment: [facility] rpt [facility], 01/22/2024 12:56:29 EDT//JV Performed By: #### C BC, ADIFF, ANEU, BMP, GFR #### [address] [address] Stenotrophomonas maltophilia Not detected Normal Not Detected [facility] ([place]) Comment on above: Order Comment: [facility] rpt [facility], 01/22/2024 12:56:29 EDT//JV Performed By: #### C BC, ADIFF, ANEU, BMP, GFR #### Denise [address] [address] Streptococcus Not detected Normal Not Detected [facility] ([place]) Comment on above: Order Comment: [facility] rpt [facility], 01/22/2024 12:56:29 EDT//JV Performed By: #### C BC, ADIFF, ANEU, BMP, GFR #### Denise [address] [address] Streptococcus pneumoniae Not detected Normal Not Detected [facility] ([place]) Comment on above: Order Comment: [facility] rpt ok, 01/22/2024 12:56:29 EDT//JV Performed By: #### C BC, ADIFF, ANEU, BMP, GFR #### [place] [id number] Streptococcus pyogenes Not detected Normal Not Detected [facility] ([place]) Comment on above: Order Comment: [facility] rpt [facility], 01/22/2024 12:56:29 EDT//JV Performed By: #### C BC, ADIFF, ANEU, BMP, GFR #### Denise [address] [address] Van A/B Not detected Normal Not Detected [facility] ([place]) Comment on above: Order Comment: [facility] rpt [facility], 01/22/2024 12:56:29 EDT//JV Performed By: #### C BC, ADIFF, ANEU, BMP, GFR #### Denise [address] [address] VIM (Carbapenemase) Not Applicable Normal Not Detected [facility] ([place]) Comment on above: Order Comment: [facility] rpt ok, 01/22/2024 12:56:29 EDT//JV Performed By: #### C BC, ADIFF, ANEU, BMP, GFR #### Denise [address] [address] .Auto Diffon 01-21-2024 Basophil, Absolute 0.1 10 3/mcL Normal 0.0-0.2 [facility] ([place]) Comment on above: Performed By: #### C BC, ADAARON, ANEU, MDW, PRO, CMP, GFR ####Denise [address] [place], [place] [address] Basophils/100 WBC (Bld) 0.7 % Normal 0.0-2.5 A [facility] ([place] Comment on above: Performed By: #### C BC, ADIFF, ANEU, MDW, PRO, CMP, GFR ####Denise [address] [place], [place] [address] Eosinophil, Absolute 0.2 10 3/mcL Normal 0.0-0.4 [facility] ([place]) Comment on above: Performed By: #### C BC, ADIFF, ANEU, MDW, PRO, CMP, GFR ####Denise [address] [place], [place] [address] Eosinophils/100 WBC (Bld) 3.1 % Normal 0.0-7.0 [facility] ([place] Comment on above: Performed By: #### C BC, ZARA, ANEU, MDW, PRO, CMP, GFR ####Denise [address] [place], [place] [address] Lymphocyte, Absolute 0.7 10 3/mcL Low 0.8-3.9 [facility] ([place]) Comment on above: Performed By: #### C BC, ADIFF, ANEU, MDW, PRO, CMP, GFR ####Denise [address] [place], [place] [address] Lymphocytes/100 WBC (Bld) 9.5 % Low 10.0-50.0 [facility] ([place] Comment on above: Performed By: #### C BC, ADAARON, ANEU, MDW, PRO, CMP, GFR ####Denise [address] [place], [place] [address] Monocyte, Absolute 0.6 10 3/mcL Normal 0.2-1.0 [facility] ([place] Comment on above: Performed By: #### C BC, ADIFF, [place], MDW, PRO, CMP, GFR ####Denise [address] [place], [place] [address] Monocytes/100 WBC (Bld) 8.2 % Normal 1.7-13.0 A [facility] ([place]) Comment on above: Performed By: #### C BC, ADAARON, ANEU, MDW, PRO, CMP, GFR ####Denise [address] [place], [place] [address] Neutrophils/100 WBC (Bld) 78.5 % Normal 37.0-80.0 [facility] ([place]) Comment on above: Performed By: #### C BC, ZARA, L[place]IS, MDW, PRO, CMP, GFR ####Denise [address] [place], [place] [address] .GFRon 01-21-2024 GFR 71 ml/min/1.73sqm Normal [facility] ([place]) Comment on above: Result Comment: GFR Population mean for , Non- Americans Ages 20-29 = 116 mL/min/1.73 sq.m. Ages 30-39 = 107 mL/min/1.73 sq.m. Ages 40-49 = 99 mL/min/1.73 sq.m. Ages 50-59 = 93 mL/min/1.73 sq.m. Ages 60-69 = 85 mL/min/1.73 sq.m. Ages 70+ = 75 mL/min/1.73 sq.m. Chronic Kidney Disease: Less than 60 mL/min/1.73 square meters End Stage Renal Disease: Less than 15 mL/min/1.73 square meters Performed By: #### C BC, ZARA, LOUIS, MDW, PRO, CMP, GFR ####Denise [address] [place], [place] [address] GFR Non- 59 ml/min/1.73sqm Normal [facility] ([place]) Comment on above: Result Comment: GFR Population mean for , Non- Americans Ages 20-29 = 116 mL/min/1.73 sq.m. Ages 30-39 = 107 mL/min/1.73 sq.m. Ages 40-49 = 99 mL/min/1.73 sq.m. Ages 50-59 = 93 mL/min/1.73 sq.m. Ages 60-69 = 85 mL/min/1.73 sq.m. Ages 70+ = 75 mL/min/1.73 sq.m. Chronic Kidney Disease: Less than 60 mL/min/1.73 square meters End Stage Renal Disease: Less than 15 mL/min/1.73 square meters Performed By: #### C JANICE, ZARA, [place], MDW, PRO, CMP, GFR ####Denise [address] [place], [place] [address] .MDWon 01-21-2024 Monocyte Distribution Width 17.71 Normal 0.00-20.00 [facility] ([place]) Comment on above: Result Comment: For ED adult patients suspected of sepsis, MDW<=20.0 does not rule out sepsis or risk of sepsis Performed By: #### C JANICE, ZARA, [place], MDW, PRO, CMP, GFR ####Denise [address] [address] .NEUABSon 01-21-2024 Neutrophil, Absolute 6.2 10 3/mcL Normal 2.9-6.2 [facility] ([place]) Comment on above: Performed By: #### C ZARA CAMACHO ANEU, MDW, PRO, CMP, GFR ####Denise [address] [place], [place] [address] .Urinalysis Microscopic (AO) on 01-21-2024 UA CA Ox Crystal 2+ /hpf Normal [facility] ([place] Comment on above: Performed By: #### C BC, ADIFF, ANEU, BMP, GFR #### Denise [address] [address] UA Mucous Trace Normal [facility] ([place]) Comment on above: Performed By: #### C BC, ADIFF, ANEU, BMP, GFR #### Denise [address] [address] UA RBC 15-25 Abnormal None Seen [facility] ([place] Comment on above: Performed By: #### C BC, ADAARON, ANEU, BMP, GFR #### [place] [address] [place], [place] [address] UA Squam Epithelial 0-5 Abnormal None Seen [facility] ([place]) Comment on above: Performed By: #### C BC, ADIFF, ANEU, BMP, GFR #### Denise [place] [address] [place], [place] [address] UA WBC 0-5 Abnormal None Seen [facility] ([place] Comment on above: Performed By: #### C BC, ADIFF, ANEU, BMP, GFR #### Denise [place] [address] [place], [place] [address] CBCon 01-21-2024 Erythrocyte distribution width (RBC) [Ratio] 17.5 % High 11.5-14.5 [facility] ([place] Comment on above: Performed By: #### C JANICE, ZARA, [place], MDW, PRO, CMP, GFR ####[place] [address] [place] [address] Hematocrit (Bld) [Volume fraction] 31.3 % Low 42.0-52.0 [facility] ([place] Comment on above: Performed By: #### C JANICE, ZARA, [place], MDW, PRO, CMP, GFR ####Denise [address] [place] [address] Hgb 10.1 G/dL Low 14.0-18.0 [facility] ([place] Comment on above: Performed By: #### C JANICE, ZARA, [place], MDW, PRO, CMP, GFR ####Denise [address] [place] [id number] MCH (RBC) [Entitic mass] 27.5 pg Normal 27.0-31.2 [facility] ([place] Comment on above: Performed By: #### C BC, ZARA, L[place]IS, MDW, PRO, CMP, GFR ####Denise [address] [place] [address] MCHC 32.3 G/dL Normal 31.8-35.4 [facility] ([place] Comment on above: Performed By: #### C BC, ZARA, ANEU, MDW, PRO, CMP, GFR ####Denise [address] [place], [place] [address] MCV (RBC) [Entitic vol] 85.1 fL Normal 80.0-94.0 A [facility] ([place] Comment on above: Performed By: #### C JANICE, ZARA, [place], MDW, PRO, CMP, GFR ####Denise [address] [place], [place] [address] Platelet 169 10 3/mcL Normal 130-400 [facility] ([place] Comment on above: Performed By: #### C JANICE, ZARA, [place], MDW, PRO, CMP, GFR ####Denise [address] [place], [place] [address] Platelet mean volume (Bld) [Entitic vol] 9.5 fL Normal 7.4-10.4 [facility] ([place] Comment on above: Performed By: #### C ZARA CAMACHO ANEU, MDW, PRO, CMP, GFR ####Denise [address] [place], [place] [address] RBC 3.68 10 6/mcL Low 4.04-6.13 [facility] ([place] Comment on above: Performed By: #### C ZARA CAMACHO ANEU, MDW, PRO, CMP, GFR ####Denise [address] [place], [place] [address] WBC 7.9 10 3/mcL Normal 4.6-10.8 [facility] ([place] Comment on above: Performed By: #### C ZARA CAMACHO ANEU, MDW, PRO, CMP, GFR ####[address]isesarb[address] [place], [place] [address] CMPon 01-21-2024 Albumin Level 2.6 G/dL Low 3.4-4.8 [facility] ([place] Comment on above: Performed By: #### C ZARA CAMACHO ANEU, MDW, PRO, CMP, GFR ####Denise [address] [place], [place] [address] Albumin/Globulin [Mass ratio] 0.7 {ratio} Low 1.1-2.5 [facility] ([place] Comment on above: Performed By: #### C BC, ADIFF, ANEU, MDW, PRO, CMP, GFR ####Denise [address] [place], [place] [address] ALP [Catalytic activity/Vol] 73 U/L Normal 40-135 [facility] ([place] Comment on above: Performed By: #### C BC, ADIFF, ANEU, MDW, PRO, CMP, GFR ####Denise [address] [place], [place] [address] ALT [Catalytic activity/Vol] 20 U/L Normal 16-63 [facility] ([place] Comment on above: Performed By: #### C BC, ADAARON, ANEU, MDW, PRO, CMP, GFR ####Denise [address] [place] [address] AST [Catalytic activity/Vol] 18 U/L Normal 10-40 [facility] ([place] Comment on above: Performed By: #### C BC, ADIFF, ANEU, MDW, PRO, CMP, GFR ####Denise [address] [place], [place] [address] Bili Total 0.2 mg/dL Normal 0.2-1.0 [facility] ([place] Comment on above: Result Comment: Use of this assay is not recommended for patients undergoing treatment with eltrombopag due to the potential for falsely elevated results. Performed By: #### C BC, ADIFF, ANEU, MDW, PRO, CMP, GFR ####Denise [address] [place], [place] [address] BUN/Creatinine Ratio 17 ratio Normal 7-27 [facility] ([place] Comment on above: Performed By: #### C BC, ADIFF, ANEU, MDW, PRO, CMP, GFR ####Denise [address] [place], [place] [address] Calcium [Mass/Vol] 8.8 mg/dL Normal 8.4-10.2 [facility] ([place]) Comment on above: Performed By: #### C BC, ADIFF, ANEU, MDW, PRO, CMP, GFR ####Denise [address] [place] [phone] Chloride [Moles/Vol] 103 mmol/L Normal 98-107 [facility] ([place]) Comment on above: Performed By: #### C BC, ZARA, L[place]IS, MDW, PRO, CMP, GFR ####Denise [address] [place], [place] [address] CO2 [Moles/Vol] 26 mmol/L Normal 23-31 [facility] ([place] Comment on above: Performed By: #### C BC, ZARA, L[place]IS, MDW, PRO, CMP, GFR ####Denise [address] [place], [place] [address] Creatinine [Mass/Vol] 1.23 mg/dL Normal 0.70-1.30 [facility] ([place]) Comment on above: Performed By: #### C BC, ZARA, L[place]IS, MDW, PRO, CMP, GFR ####Denise [address] [place], [place] [address] Electrolyte Balance 8.0 mEq/L Normal 4.0-15.0 [facility] ([place]) Comment on above: Performed By: #### C JANICE, ZARA, [place], MDW, PRO, CMP, GFR ####Denise [address] [place], [place] [address] Globulin 3.6 G/dL Normal [facility] ([place] Comment on above: Performed By: #### C JANICE, ZARA, [place], MDW, PRO, CMP, GFR ####Denise [address] [place], [place] [address] Glucose [Mass/Vol] 169 mg/dL High 80-115 [facility] ([place]) Comment on above: Performed By: #### C BC, ZARA, L[place]IS, MDW, PRO, CMP, GFR ####Denise [address] [place], [place] [address] Potassium [Moles/Vol] 5.0 mmol/L Normal 3.5-5.1 [facility] ([place] Comment on above: Performed By: #### C BC, ZARA, L[place]IS, MDW, PRO, CMP, GFR ####Denise [address] [place], [place] [address] Sodium [Moles/Vol] 137 mmol/L Normal 136-145 [facility] ([place]) Comment on above: Performed By: #### C ZARA CAMACHO ANEU, MDW, PRO, CMP, GFR ####Denise [address] [place], [place] [address] Total Protein 6.2 G/dL Low 6.4-8.2 [facility] ([place] Comment on above: Performed By: #### C ZARA CAMACHO ANEU, MDW, PRO, CMP, GFR ####Deniser[address] [place], [place] [address] Urea nitrogen [Mass/Vol] 21 mg/dL High 7-18 [facility] ([place] Comment on above: Performed By: #### C ZARA CAMACHO ANEU, MDW, PRO, CMP, GFR ####Denise [address] [place], [place] [address] LABORATORYOrdered By: SYSTEM SYSTEM on 01-21-2024 Albumin BCP dye [Mass/Vol] 2.6 G/dL Low 3.4 - 4.8 G/dL AO ADM SS Albumin/Globulin [Mass ratio] 0.7 {ratio} Low 1.1 - 2.5 ratio AO ADM SS ALP [Catalytic activity/Vol] 73 U/L Normal 40 - 135 U/L AO ADM SS ALT With P-5'-P [Catalytic activity/Vol] 20 U/L Normal 16 - 63 U/L AO ADM SS AST With P-5'-P [Catalytic activity/Vol] 18 U/L Normal 10 - 40 U/L AO ADM SS Bilirubin [Mass/Vol] 0.2 mg/dL Normal 0.2 - 1 .0 mg/dL AO ADM SS Comment on above: Interpretive Data: U se of this assay is not recommended for patients undergoing treatment with eltrombopag due to the potential for falsely elevated results. Calcium [Mass/Vol] 8.8 mg/dL Normal 8.4 - 10. 2 mg/dL AO ADM SS Chloride [Moles/Vol] 103 mmol/L Normal 98 - 10 7 mmol/L AO ADM SS CO2 [Moles/Vol] 26 mmol/L Normal 23 - 31 mmol/L AO ADM SS Creatinine [Mass/Vol] 1.23 mg/dL Normal 0.70 - 1.30 mg/dL AO ADM SS Electrolyte Balance 8.0 mEq/L Normal 4.0 - 15 .0 mEq/L AO ADM SS GFR/1.73 sq M.predicted among blacks MDRD (S/P/Bld) [Vol rate/Area] 71 ml/min/1.73sqm Invalid Interpretation Code AO Chemistry S Comment on above: Interpretive Data: GFR Population mean for , Non- Americans Ages 20-29 = 116 mL/min/1.73 sq.m. Ages 30-39 = 107 mL/min/1.73 sq.m. Ages 40-49 = 99 mL/min/1.73 sq.m. Ages 50-59 = 93 mL/min/1.73 sq.m. Ages 60-69 = 85 mL/min/1.73 sq.m. Ages 70+ = 75 mL/min/1.73 sq.m. Chronic Kidney Disease: Less than 60 mL/min/1.73 square meters End Stage Renal Disease: Less than 15 mL/min/1.73 square meters GFR/1.73 sq M.predicted among non-blacks MDRD (S/P/Bld) [Vol rate/Area] 59 ml/min/1.73sqm Invalid Interpretation Code AO Chemistry S Comment on above: Interpretive Data: GFR Population mean for , Non- Americans Ages 20-29 = 116 mL/min/1.73 sq.m. Ages 30-39 = 107 mL/min/1.73 sq.m. Ages 40-49 = 99 mL/min/1.73 sq.m. Ages 50-59 = 93 mL/min/1.73 sq.m. Ages 60-69 = 85 mL/min/1.73 sq.m. Ages 70+ = 75 mL/min/1.73 sq.m. Chronic Kidney Disease: Less than 60 mL/min/1.73 square meters End Stage Renal Disease: Less than 15 mL/min/1.73 square meters Globulin 3.6 G/dL Invalid Interpretation Code AO ADM SS Glucose [Mass/Vol] 169 mg/dL High 80 - 115 mg/dL AO ADM SS Potassium [Moles/Vol] 5.0 mmol/L Normal 3.5 - 5.1 mmol/L AO ADM SS Protein [Mass/Vol] 6.2 G/dL Low 6.4 - 8.2 G/dL AO ADM SS Sodium [Moles/Vol] 137 mmol/L Normal 136 - 145 mmol/L AO ADM SS Urea nitrogen [Mass/Vol] 21 mg/dL High 7 - 18 mg/dL AO ADM SS Urea nitrogen/Creatinine [Mass ratio] 17 ratio Normal 7 - 27 ratio AO ADM SS Basophil, Absolute 0.1 103/mcL Normal 0.0 - 0.2 10^3/mcL AO Workflow SS Basophils/100 WBC (Bld) 0.7 % Normal 0.0 - 2.5 % AO Workflow SS Eosinophil, Absolute 0.2 103/mcL Normal 0.0 - 0 .4 10^3/mcL AO Workflow SS Eosinophils/100 WBC (Bld) 3.1 % Normal 0.0 - 7.0 % AO Workflow SS Erythrocyte distribution width (RBC) [Ratio] 17.5 % High 11.5 - 14.5 % AO Workflow SS Hematocrit (Bld) [Volume fraction] 31.3 % Low 42.0 - 52.0 % AO Workflow SS Hemoglobin (Bld) [Mass/Vol] 10.1 G/dL Low 14.0 - 18.0 G/dL AO Workflow SS Lactate [Moles/Vol] 1.3 mmol/L Normal 0.4 - 2. 0 mmol/L AO ADM SS Lymphocyte, Absolute 0.7 103/mcL Low 0.8 - 3 .9 10^3/mcL AO Workflow SS Lymphocytes/100 WBC (Bld) 9.5 % Low 10.0 - 50.0 % AO Workflow SS MCH (RBC) [Entitic mass] 27.5 pg Normal 27.0 - 31.2 pg AO Workflow SS MCHC 32.3 G/dL Normal 31.8 - 35.4 G/dL AO Workflow SS MCV (RBC) [Entitic vol] 85.1 fL Normal 80.0 - 94.0 fL AO Workflow SS Monocyte distribution width Auto (Bld) [Entitic vol] 17.71 1 Normal 0.00 - 20.00 AO Workflow SS Comment on above: Result Comment: For ED adult patients suspected of sepsis, MDW<=20.0 does not rule out sepsis or risk of sepsis Monocyte, Absolute 0.6 103/mcL Normal 0.2 - 1.0 10^3/mcL AO Workflow SS Monocytes/100 WBC (Bld) 8.2 % Normal 1.7 - 13.0 % AO Workflow SS Natriuretic peptide.B prohormone N-Terminal [Mass/Vol] 339 pg/mL High 0 - 125 pg/mL AO ADM SS Comment on above: Interpretive Data: N T-proBNP results of less than 300 pg/mL effectively rules out acute congestive heart failure with 99% negative predictive value. Neutrophil, Absolute 6.2 103/mcL Normal 2.9 - 6 .2 10^3/mcL AO Workflow SS Neutrophils/100 WBC (Bld) 78.5 % Normal 37.0 - 80.0 % AO Workflow SS Platelet mean volume (Bld) [Entitic vol] 9.5 fL Normal 7.4 - 10.4 fL AO Workflow SS Platelets (Bld) [#/Vol] 169 103/mcL Normal 130 - 400 10^3/mcL AO Workflow SS RBC (Bld) [#/Vol] 3.68 106/mcL Low 4.04 - 6.1 3 10^6/mcL AO Workflow SS WBC (Bld) [#/Vol] 7.9 103/mcL Normal 4.6 - 10.8 10^3/mcL AO Workflow SS LABORATORYOrdered By: Willow Springer on 01-21-2024 Appearance (U) Clear (01/21/24 11:23 AM) Normal Clear AO Auto Urine SS Bilirubin Ql (U) Negative (01/21/24 11:23 AM) Normal Negative AO Auto Urine SS Calcium oxalate crystals LM.HPF (Urine sed) [#/Area] 2 /[HPF] Normal AO Auto Urine SS Color (U) Yellow (01/21/24 11:23 AM) Normal AO Auto Urine SS Glucose Test strip (U) [Mass/Vol] Negative Normal Negative AO Auto Urine SS Hemoglobin Auto test strip (U) [Mass/Vol] Large *ABN* (01/21/24 11:23 AM) Invalid Interpretation Code Negative AO Auto Urine SS Ketones Ql (U) Negative Normal Negative AO Auto Urine SS UA Leuk Est Negative (01/21/24 11:23 AM) Normal Negative AO Auto Urine SS UA Mucous Trace /HPF Normal AO Auto Urine SS UA Nitrite Negative (01/21/24 11:23 AM) Normal Negative AO Auto Urine SS UA pH 5.0 (01/21/24 11:23 AM) Normal 5.0 - 8.0 AO Auto Urine SS UA Protein Negative Normal Negative AO Auto Urine SS UA RBC 15-25 /HPF Invalid Interpretation Code None Seen AO Auto Urine SS UA Spec Grav 1.025 (01/21/24 11:23 AM) Normal 1.015-1.025 AO Auto Urine SS UA Specimen Type Martines Catheter (01/21/24 11:23 AM) Normal AO Auto Urine SS UA Squam Epithelial 0-5 /HPF Invalid Interpretation Code None Seen AO Auto Urine SS UA Urobilinogen 0.2 E.U./dL Normal 0.2-1.0 AO Auto Urine SS WBC LM.HPF (Urine sed) [#/Area] 0-5 /HPF Invalid Interpretation Code None Seen AO Auto Urine SS LABORATORYOrdered By: Louie kilpatrick on 01-21-2024 INR Coag (PPP) [Relative time] 1.6 {INR} Invalid Interpretation Code AO HemoHub SS Comment on above: Interpretive Data: Almaz gutierrez [employer] [employer] (CHEST, 1992, 102:312S-25S) recommended therapeutic range for oral anticoagulant therapy is: LOW RISK: Prophylaxis of venous thrombosis INR: 2.0-3.0 Treatment of pulmonary embolism 2.0-3.0 Prevention of systemic embolism 2.0-3.0 HIGH RISK: Mechanical prosthetic valves 2.5-3.5 PT Coag (PPP) [Time] 17.9 s High 9.0 - 1 4.4 seconds AO HemoHub SS LACon 01-21-2024 Lactic Acid Lvl 1.3 mmol/L Normal 0.4-2.0 [facility] ([place]) Comment on above: Performed By: #### C BC, ADIFF, ANEU, BMP, GFR #### [facility] [address] [place], [place] [address] No Panel Informationon 01-20 Microscopic examination of blood, culture Culture has been received in lab and is no growth to date. Routine cultures are held for 5 days[facility] Work Phone: PBNPon 01-21-2024 Natriuretic peptide B (Bld) [Mass/Vol] 339 pg/mL High 0-125 [facility] ([place] Comment on above: Result Comment: NT-p roBNP results of less than 300 pg/mL effectively rules out acute congestive heart failure with 99% negative predictive value. Performed By: #### P BNP ####[place] [id number] [place], [place] [address] PROon 01-21-2024 PT Coag (PPP) [Time] 17.9 s High 9.0-14.4 [facility] ([place]) Comment on above: Performed By: #### C JANICE, ZARA, [place], W, PRO, CMP, GFR ####Denise [address] [place], [place] [address] PT International Ratio 1.6 Normal [facility] ([place]) Comment on above: Result Comment: [employer] [place] [employer] (CHEST, 1992, 102:312S-25S) recommended therapeutic range for oral anticoagulant therapy is: LOW RISK: Prophylaxis of venous thrombosis INR: 2.0-3.0 Treatment of pulmonary embolism 2.0-3.0 Prevention of systemic embolism 2.0-3.0 HIGH RISK: Mechanical prosthetic valves 2.5-3.5 Performed By: #### C BC, ZARA, [place], MDW, PRO, CMP, GFR ####[place] [address] [place], [place] [address] UAon 01-21-2024 Color (U) Yellow Normal [facility] ([place] Comment on above: Performed By: #### C BC, ZARA, ANEU, BMP, GFR #### [address] [address] Glucose (U) [Mass/Vol] Negative Normal Negative [facility] ([place]) Comment on above: Performed By: #### C BC, ADAARON, ANEU, BMP, GFR #### [address] [address] Ketones Ql (U) Negative Normal Negative [facility] ([place] Comment on above: Performed By: #### C BC, ADAARON, ANEU, BMP, GFR #### Denise [address] [address] UA Appear Clear Normal Clear [facility] ([place] Comment on above: Performed By: #### C BC, ADIFF, ANEU, BMP, GFR #### [address] [address] UA Blood Large Abnormal Negative [facility] ([place] Comment on above: Performed By: #### C BC, ADIFF, ANEU, BMP, GFR #### [address] [address] UA Leuk Est Negative Normal Negative [facility] ([place] Comment on above: Performed By: #### C BC, ADIFF, ANEU, BMP, GFR #### [address] [address] UA Nitrite Negative Normal Negative [facility] ([place] Comment on above: Performed By: #### C BC, ADIFF, ANEU, BMP, GFR #### [address] [address] UA pH 5.0 Normal 5.0 - 8.0 [facility] ([place] Comment on above: Performed By: #### C BC, ADIFF, ANEU, BMP, GFR #### [address] [address] UA Protein Negative Normal Negative [facility] ([place] Comment on above: Performed By: #### C BC, ADIFF, ANEU, BMP, GFR #### [address] [address] UA Spec Grav 1.025 Normal 1.015-1.025 [facility] ([place] Comment on above: Performed By: #### C BC, ADIFF, ANEU, BMP, GFR #### [address] [address] UA Specimen Type Martines Catheter Normal [facility] ([place] Comment on above: Performed By: #### C BC, ADIFF, ANEU, BMP, GFR #### [address] [address] UA Urobilinogen 0.2 E.U./dL Normal 0.2-1.0 [facility] ([place] Comment on above: Performed By: #### C BC, ADIFF, ANEU, BMP, GFR #### [address] [address] Urobilinogen (U) [Mass/Vol] Negative Normal Negative [facility] ([place] Comment on above: Performed By: #### C BC, ZARA, ANEU, BMP, GFR #### Denise [place] [address] [place], [place] [address] XR CHEST 1 VIEWon 01-21-2024 XR CHEST 1 VIEW ORIGINAL EXAMINATION: ONE XRAY VIEW OF THE CHEST 01/21/2024 12:18 pm COMPARISON: October 03, 2023 HISTORY: ORDERING SYSTEM PROVIDED HISTORY: Reason for Exam: pain/fever FINDINGS: Heart is normal in size and there is no vascular congestion present. There is a shallow inspiration present with some vascular crowding. No infiltrate or pleural fluid seen. Minor degenerative change noted in the spine. IMPRESSION: Hypoventilatory changes. No acute process. Interpreted by: Amarjit Ortiz MD Preliminary Report By: Amarjit Ortiz MD Electronically signed By Amarjit Ortiz MD Dictated Date: 01/21/2024 12:23:58 PM Prelim Date: 01/21/2024 12:24:34 PM Sign Date: 01/21/2024 12:24:34 PM Ordering Provider: FERNANDO Schroeder [facility] ([place]) Odilia 01-19-2024 LUCIANO Telephone (URCANT) JADON ALVAREZ ([id number]) 1955 M Date Time Provider Department 01/19/24 SHAR DOWNS URMICHELET During your visit today, we recorded the following information about you: Isela Shea 01/19/2024 10:41 AM Signed [facility], no transport Moved to 02/17/2024 Isela Shea Allergies As of Date: 01/19/2024 Noted Allergy Reaction IBUPROFEN 01/12/2024 16 - Unknown Date Reviewed: 01/12/2024 Reviewed by: Shar Downs MD - Fully Assessed Reason for Visit: Appointment [[id number]] Prescriptions as of 01/19/2024 - amLODIPine (NORVASC) 5 mg tablet Take 1 tablet by mouth every afternoon. - bumetanide (BUMEX) 1 mg tablet TAKE 12 TABLET BY MOUTH TWICE DAILY - ELIQUIS 5 mg tab(s) Take 1 tablet by mouth every 12 hours. - ferrous sulfate 325 mg (65 mg iron) EC tablet - tamsulosin HCl (FLOMAX ORAL) Flomax Oral - MOUNJARO 5 mg/0.5 mL pen injector INJECT 5MGS SUBCUTANEOUS EVERY WEEK ROTATE INJECTION SITES - traZODone (DESYREL) 50 mg tablet - oxyCODONE-acetaminophen (PERCOCET) 5-325 mg tablet TAKE ONE TABLET BY MOUTH EVERY SIX HOURS NEEDED FOR PAIN FOR 3 DAYS - SYMBICORT 160-4.5 mcg/actuation inhaler INHALE 2 PUFFS EVERY DAY - nystatin (MYCOSTATIN) powder Apply to affected area four times daily. - gabapentin (NEURONTIN) 300 mg capsule Take 300 mg by mouth three times a day. - atorvastatin (LIPITOR) 20 mg tablet Take 20 mg by mouth once daily. - aspirin 81 mg cap Take by mouth. Problem List As Of Date: 01/19/2024 (None) Encounter Status:Closed by ISELA SHEA on 01/19/24 [facility] Jay 01-12-2024 CNOV Office Visit (URCANT ) JADON ALVAREZ ([id number]) 1955 M Date Time Provider Department 01/12/24 3:00 PM SHAR DOWNS During your visit today, we recorded the following information about you: Pulse Blood pressure 48/minute 143/74 Shar Downs MD 01/12/2024 3:38 PM Signed [facility] NEW PATIENT CONSULT/HISTORY AND PHYSICAL PATIENT: Jadon Alvarez (68 year old) REFERRING PROVIDER: PCP: Ignacia Reyna, DO Consultation requested by for an opinion regarding Jadon Alvarez. My final recommendations will be communicated back to the requesting physician by way of shared Medical record or letter to requesting physician. ASSESSMENT: 1. Difficulty urinating - ICD9: 788.99, ICD10: R39.198 (primary diagnosis) 2. Benign prostatic hyperplasia with urinary retention - ICD9: 600.01, 788.20, ICD10: N40.1, R33.8 Poor health Wheelchair, leg wound with vac In nursing facility Morbid obesity PLAN: Urinary retention. Martines in one week. From [facility]. Prior to that, could only void small amounts. On tamsulosin for years. Nursing had a very difficult time getting his Martines in. Discussed voiding trial versus cystoscopy. He wishes a scope. We discussed the planned procedure. Risks, benefits, and alternatives of the procedure were discussed. Patient acknowledges understanding and consents to proceed. Continue tamsulosin for now FOLLOW UP: Return in about 4 weeks (around 02/09/2024). CHIEF COMPLAINT: Patient presents with: Difficulty Urinating HISTORY OF PRESENT ILLNESS: Mr. Alvarez is a 68 year old male who presents as a new consultation for: Complaint: urinary retention Location: bladder Radiation: none Duration: weeks Quality: obstructive Severity: severe Relieving: none Exacerbating: none Course: new Associated conditions: BPH, difficult Martines insert Diagnostics: none Treatments: none I personally reviewed the past medical records received from the referring provider. REVIEW OF SYSTEMS: Genitourinary: Unable to void Constitutional: unintentional weight loss - denies, fevers - denies Cardiovascular: new or worsening chest pain - denies Respiratory: new or worsening shortness of breath - denies Gastrointestinal: constipation - denies, vomiting - denies Hematologic/Lymphatic: easy bleeding or bruising - denies ALLERGIES: ALLERGIES Allergen Reactions Ibuprofen Unknown MEDICATIONS: amLODIPine (NORVASC) 5 mg tablet Take 1 tablet by mouth every afternoon. bumetanide (BUMEX) 1 mg tablet TAKE 12 TABLET BY MOUTH TWICE DAILY ELIQUIS 5 mg tab(s) Take 1 tablet by mouth every 12 hours. ferrous sulfate 325 mg (65 mg iron) EC tablet tamsulosin HCl (FLOMAX ORAL) Flomax Oral MOUNJARO 5 mg/0.5 mL pen injector INJECT 5MGS SUBCUTANEOUS EVERY WEEK ROTATE INJECTION SITES traZODone (DESYREL) 50 mg tablet oxyCODONE-acetaminophen (PERCOCET) 5-325 mg tablet TAKE ONE TABLET BY MOUTH EVERY SIX HOURS NEEDED FOR PAIN FOR 3 DAYS SYMBICORT 160-4.5 mcg/actuation inhaler INHALE 2 PUFFS EVERY DAY nystatin (MYCOSTATIN) powder Apply to affected area four times daily. gabapentin (NEURONTIN) 300 mg capsule Take 300 mg by mouth three times a day. atorvastatin (LIPITOR) 20 mg tablet Take 20 mg by mouth once daily. aspirin 81 mg cap Take by mouth. PAST HISTORY: PAST MEDICAL HISTORY Diagnosis Date Atrial fibrillation (HCC) BPH with obstruction/lower urinary tract symptoms CKD (chronic kidney disease) stage 2, GFR 60-89 ml/min Diabetes mellitus (HCC) Renal carcinoma, left (HCC) PAST SURGICAL HISTORY Procedure Laterality Date COLON VIA STOMA RESECTION REPAIR INCISIONAL HERNIA,REDUCIBLE History reviewed. No pertinent family history. Social History Tobacco Use Smoking status: Former Types: Cigarettes Quit date: 2003 Years since quittin.5 Smokeless tobacco: Never Substance Use Topics Alcohol use: Not Currently Drug use: Never PHYSICAL EXAMINATION: BP 143/74 Pulse (!) 48 Genitourinary: Martines yellow; unable to perform NIKI Constitutional: In no acute distress. Disheveled Respiratory: Normal respiratory effort without use of accessory muscles. Musculoskeletal: Wheelchair Cardiovascular: Regular rate Gastrointestinal: Nondistended, obese DATA: Clinic: URINALYSIS: No results found for this basename: uglucpoc,ubilipoc,uketo npoc,usgpoc,uhbpoc,uphp oc,upropoc,uuropoc,unit poc,uwbcpo- c,ucolpoc,uclarpoc Labor (more content not included)... Normal [facility] .Auto Diffon 11-13-2023 Basophil, Absolute 0.0 10 3/mcL Normal 0.0-0.2 [facility] ([place]) Comment on above: Performed By: #### A ALEXANDER RUTHERFORD #### [address] [address] Basophils/100 WBC (Bld) 0.9 % Normal 0.0-2.5 A [facility] ([place]) Comment on above: Performed By: #### A ALEXANDER RUTHERFORD #### [address] [address] Eosinophil, Absolute 0.1 10 3/mcL Normal 0.0-0.4 [facility] ([place]) Comment on above: Performed By: #### A ALEXANDER RUTHERFORD #### [address] [address] Eosinophils/100 WBC (Bld) 2.1 % Normal 0.0-7.0 [facility] ([place]) Comment on above: Performed By: #### A BSMERISSA, ABOGEL #### [address] [address] Lymphocyte, Absolute 0.9 10 3/mcL Normal 0.8-3.9 [facility] ([place]) Comment on above: Performed By: #### A BSMERISSA, ABOGEL #### [address] [address] Lymphocytes/100 WBC (Bld) 16.6 % Normal 10.0-50.0 [facility] ([place]) Comment on above: Performed By: #### A BSMERISSA, ABOGEL #### [address] [address] Monocyte, Absolute 0.6 10 3/mcL Normal 0.2-1.0 [facility] ([place]) Comment on above: Performed By: #### A BSMERISSA, ABOGEL #### [address] [address] Monocytes/100 WBC (Bld) 11.9 % Normal 1.7-13.0 Counts include 234 beds at the [facility] ([place]) Comment on above: Performed By: #### A BSMERISSA ABOGEL #### [address] [address] Neutrophils/100 WBC (Bld) 68.5 % Normal 37.0-80.0 [facility] ([place]) Comment on above: Performed By: #### A BSMERISSA, ABOGEL #### [address] [address] .GFRon 11-13-2023 GFR Non- 44 ml/min/1.73sqm Normal [facility] ([place]) Comment on above: Result Comment: GFR Population mean for , Non- Americans Ages 20-29 = 116 mL/min/1.73 sq.m. Ages 30-39 = 107 mL/min/1.73 sq.m. Ages 40-49 = 99 mL/min/1.73 sq.m. Ages 50-59 = 93 mL/min/1.73 sq.m. Ages 60-69 = 85 mL/min/1.73 sq.m. Ages 70+ = 75 mL/min/1.73 sq.m. Chronic Kidney Disease: Less than 60 mL/min/1.73 square meters End Stage Renal Disease: Less than 15 mL/min/1.73 square meters Performed By: #### A ALEXANDER RUTHERFORD #### [address] [address] GFR 54 ml/min/1.73sqm Normal [facility] ([place]) Comment on above: Result Comment: GFR Population mean for , Non- Americans Ages 20-29 = 116 mL/min/1.73 sq.m. Ages 30-39 = 107 mL/min/1.73 sq.m. Ages 40-49 = 99 mL/min/1.73 sq.m. Ages 50-59 = 93 mL/min/1.73 sq.m. Ages 60-69 = 85 mL/min/1.73 sq.m. Ages 70+ = 75 mL/min/1.73 sq.m. Chronic Kidney Disease: Less than 60 mL/min/1.73 square meters End Stage Renal Disease: Less than 15 mL/min/1.73 square meters Performed By: #### A ALEXANDER RUTHERFORD #### [address] [address] .MDWon 11-13-2023 Monocyte Distribution Width 17.49 Normal 0.00-20.00 [facility] ([place]) Comment on above: Result Comment: For ED adult patients suspected of sepsis, MDW<=20.0 does not rule out sepsis or risk of sepsis Performed By: #### A ALEXANDER RUTHERFORD #### [address] [address] .NEUABSon 11-13-2023 Neutrophil, Absolute 3.6 10 3/mcL Normal 2.9-6.2 [facility] ([place]) Comment on above: Performed By: #### A ALEXANDER RUTHERFORD #### [address] [address] BMPon 11-13-2023 BUN/Creatinine Ratio 18 ratio Normal 7-27 [facility] ([place]) Comment on above: Performed By: #### A ALEXANDER RUTHERFORD #### [address] [address] Calcium [Mass/Vol] 8.6 mg/dL Normal 8.4-10.2 [facility] ([place]) Comment on above: Performed By: #### A ALEXANDER RUTHERFORD #### [address] [address] Chloride [Moles/Vol] 107 mmol/L Normal 98-107 [facility] ([place]) Comment on above: Performed By: #### A ALEXANDER RUTHERFORD #### [address] [address] CO2 [Moles/Vol] 29 mmol/L Normal 23-31 [facility] ([place]) Comment on above: Performed By: #### A ALEXANDER RUTHERFORD #### [address] [address] Creatinine [Mass/Vol] 1.56 mg/dL High 0.70-1.30 [facility] ([place]) Comment on above: Performed By: #### A ALEXANDER RUTHERFORD #### [address] [address] Electrolyte Balance 8.0 mEq/L Normal 4.0-15.0 [facility] ([place]) Comment on above: Performed By: #### A ALEXANDER RUTHERFORD #### [address] [address] Glucose [Mass/Vol] 170 mg/dL High 80-115 [facility] ([place]) Comment on above: Performed By: #### A ALEXANDER RUTHERFORD #### [address] [address] Potassium [Moles/Vol] 4.8 mmol/L Normal 3.5-5.1 [facility] ([place]) Comment on above: Performed By: #### A ALEXANDER RUTHERFORD #### [address] [address] Sodium [Moles/Vol] 144 mmol/L Normal 136-145 [facility] ([place]) Comment on above: Performed By: #### A ALEXANDER RUTHERFORD #### [address] [address] Urea nitrogen [Mass/Vol] 28 mg/dL High 7-18 [facility] ([place]) Comment on above: Performed By: #### A ALEXANDER RUTHERFORD #### [place] [id number] CBCon 11-13-2023 Erythrocyte distribution width (RBC) [Ratio] 20.0 % High 11.5-14.5 [facility] ([place] Comment on above: Performed By: #### A ALEXANDER RUTHERFORD #### [place] [id number] Hematocrit (Bld) [Volume fraction] 34.6 % Low 42.0-52.0 [facility] ([place] Comment on above: Performed By: #### A ALEXANDER RUTHERFORD #### [place] [id number] Hgb 11.1 G/dL Low 14.0-18.0 [facility] ([place] Comment on above: Performed By: #### A ALEXANDER RUTHERFORD #### [place] [id number] MCH (RBC) [Entitic mass] 27.6 pg Normal 27.0-31.2 [facility] ([place] Comment on above: Performed By: #### A ALEXANDER RUTHERFORD #### [place] [id number] MCHC 32.0 G/dL Normal 31.8-35.4 [facility] ([place] Comment on above: Performed By: #### A ALEXANDER RUTHERFORD #### [place] [id number] MCV (RBC) [Entitic vol] 86.2 fL Normal 80.0-94.0 A [facility] ([place] Comment on above: Performed By: #### A ALEXANDER RUTHERFORD #### [place] [id number] Platelet 170 10 3/mcL Normal 130-400 [facility] ([place] Comment on above: Performed By: #### A ALEXANDER RUTHERFORD #### [place] [id number] Platelet mean volume (Bld) [Entitic vol] 9.4 fL Normal 7.4-10.4 [facility] ([place] Comment on above: Performed By: #### A ALEXANDER RUTHERFORD #### [address] [address] RBC 4.02 10 6/mcL Low 4.04-6.13 [facility] ([place] Comment on above: Performed By: #### A ALEXANDER RUTHERFORD #### [address] [address] WBC 5.2 10 3/mcL Normal 4.6-10.8 [facility] ([place] Comment on above: Performed By: #### A ALEXANDER RUTHERFORD #### [address] [address] LABORATORYOrdered By: SYSTEM SYSTEM on 11-13-2023 Basophil, Absolute 0.0 103/mcL Normal 0.0 - 0.2 10^3/mcL AO Workflow SS Basophils/100 WBC (Bld) 0.9 % Normal 0.0 - 2.5 % AO Workflow SS Calcium [Mass/Vol] 8.6 mg/dL Normal 8.4 - 10. 2 mg/dL AO ADM SS Chloride [Moles/Vol] 107 mmol/L Normal 98 - 10 7 mmol/L AO ADM SS CO2 [Moles/Vol] 29 mmol/L Normal 23 - 31 mmol/L AO ADM SS Creatinine [Mass/Vol] 1.56 mg/dL High 0.70 - 1.30 mg/dL AO ADM SS Electrolyte Balance 8.0 mEq/L Normal 4.0 - 15 .0 mEq/L AO ADM SS Eosinophil, Absolute 0.1 103/mcL Normal 0.0 - 0 .4 10^3/mcL AO Workflow SS Eosinophils/100 WBC (Bld) 2.1 % Normal 0.0 - 7.0 % AO Workflow SS Erythrocyte distribution width (RBC) [Ratio] 20.0 % High 11.5 - 14.5 % AO Workflow SS GFR/1.73 sq M.predicted among blacks MDRD (S/P/Bld) [Vol rate/Area] 54 ml/min/1.73sqm Invalid Interpretation Code AO Chemistry S Comment on above: Interpretive Data: GFR Population mean for , Non- Americans Ages 20-29 = 116 mL/min/1.73 sq.m. Ages 30-39 = 107 mL/min/1.73 sq.m. Ages 40-49 = 99 mL/min/1.73 sq.m. Ages 50-59 = 93 mL/min/1.73 sq.m. Ages 60-69 = 85 mL/min/1.73 sq.m. Ages 70+ = 75 mL/min/1.73 sq.m. Chronic Kidney Disease: Less than 60 mL/min/1.73 square meters End Stage Renal Disease: Less than 15 mL/min/1.73 square meters GFR/1.73 sq M.predicted among non-blacks MDRD (S/P/Bld) [Vol rate/Area] 44 ml/min/1.73sqm Invalid Interpretation Code AO Chemistry S Comment on above: Interpretive Data: GFR Population mean for , Non- Americans Ages 20-29 = 116 mL/min/1.73 sq.m. Ages 30-39 = 107 mL/min/1.73 sq.m. Ages 40-49 = 99 mL/min/1.73 sq.m. Ages 50-59 = 93 mL/min/1.73 sq.m. Ages 60-69 = 85 mL/min/1.73 sq.m. Ages 70+ = 75 mL/min/1.73 sq.m. Chronic Kidney Disease: Less than 60 mL/min/1.73 square meters End Stage Renal Disease: Less than 15 mL/min/1.73 square meters Glucose [Mass/Vol] 170 mg/dL High 80 - 115 mg/dL AO ADM SS Hematocrit (Bld) [Volume fraction] 34.6 % Low 42.0 - 52.0 % AO Workflow SS Hemoglobin (Bld) [Mass/Vol] 11.1 G/dL Low 14.0 - 18.0 G/dL AO Workflow SS Lymphocyte, Absolute 0.9 103/mcL Normal 0.8 - 3 .9 10^3/mcL AO Workflow SS Lymphocytes/100 WBC (Bld) 16.6 % Normal 10.0 - 50.0 % AO Workflow SS MCH (RBC) [Entitic mass] 27.6 pg Normal 27.0 - 31.2 pg AO Workflow SS MCHC 32.0 G/dL Normal 31.8 - 35.4 G/dL AO Workflow SS MCV (RBC) [Entitic vol] 86.2 fL Normal 80.0 - 94.0 fL AO Workflow SS Monocyte distribution width Auto (Bld) [Entitic vol] 17.49 1 Normal 0.00 - 20.00 AO Workflow SS Comment on above: Result Comment: For ED adult patients suspected of sepsis, MDW<=20.0 does not rule out sepsis or risk of sepsis Monocyte, Absolute 0.6 103/mcL Normal 0.2 - 1.0 10^3/mcL AO Workflow SS Monocytes/100 WBC (Bld) 11.9 % Normal 1.7 - 13.0 % AO Workflow SS Neutrophil, Absolute 3.6 103/mcL Normal 2.9 - 6 .2 10^3/mcL AO Workflow SS Neutrophils/100 WBC (Bld) 68.5 % Normal 37.0 - 80.0 % AO Workflow SS Platelet mean volume (Bld) [Entitic vol] 9.4 fL Normal 7.4 - 10.4 fL AO Workflow SS Platelets (Bld) [#/Vol] 170 103/mcL Normal 130 - 400 10^3/mcL AO Workflow SS Potassium [Moles/Vol] 4.8 mmol/L Normal 3.5 - 5.1 mmol/L AO ADM SS RBC (Bld) [#/Vol] 4.02 106/mcL Low 4.04 - 6.1 3 10^6/mcL AO Workflow SS Sodium [Moles/Vol] 144 mmol/L Normal 136 - 145 mmol/L AO ADM SS Urea nitrogen [Mass/Vol] 28 mg/dL High 7 - 18 mg/dL AO ADM SS Urea nitrogen/Creatinine [Mass ratio] 18 ratio Normal 7 - 27 ratio AO ADM SS WBC (Bld) [#/Vol] 5.2 103/mcL Normal 4.6 - 10.8 10^3/mcL AO Workflow SS No Panel Informationon 11-12 Microscopic examination of blood, culture Culture has been received in lab and is no growth to date. Routine cultures are held for 5 days. [facility] Work Phone: XR TIBIA/FIBULA 2 VIEWS RIGH Ton 11-13-2023 XR TIBIA/FIBULA 2 VIEWS RIGHT ORIGINAL EXAMINATION: TWO XRAY VIEWS OF THE RIGHT TIBIA/FIBULA 11/13/2023 9:14 pm COMPARISON: None. HISTORY: ORDERING SYSTEM PROVIDED HISTORY: Reason for Exam: swelling FINDINGS: No acute fracture or dislocation. No periosteal reaction to suggest osteomyelitis by radiograph. Mild to moderate tricompartmental degenerative changes of the knee. This is most pronounced in the medial tibiofemoral joint space with joint space narrowing marginal osteophyte production. Large soft tissue defects the lateral aspect of the lower extremity with suspected subcutaneous emphysema. No radiopaque retained foreign body. IMPRESSION: No acute fracture dislocation. No periosteal reaction to suggest osteomyelitis by radiograph. Large soft tissue defects with suspected subcutaneous emphysema. No radiopaque retained foreign body. REPORT CORRECTION I have personally reviewed the images of this examination and edited the preliminary report. Interpreted by: Kellie Pagan Preliminary Report By: Shar Antoine Electronically signed By Kellie Pagan Dictated Date: 11/13/2023 9:22:00 PM Prelim Date: 11/13/2023 9:26:03 PM Sign Date: 11/13/2023 9:57:19 PM Ordering Provider: FERNANDO ZEE [facility] ([place]) Basophil percentageOrdered B y: Louie Howard on 11-03-2023 Chloride [Moles/Vol] 99 mmol/L 98-107 [facility] Glucose [Mass/Vol] 110 mg/dL 74-106 [facility] Comment on above: Fasting Glucose resu lt from 100 to 125 mg/dL suggests IMPAIRED HOMEOSTASIS per A.D.A. criteria. Hemoglobin (Bld) [Mass/Vol] 9.3 g/dL 13.0-16.5 [facility] Potassium [Moles/Vol] 4.1 mmol/L 3.5-5.1 [facility] Sodium [Moles/Vol] 137 mmol/L 136-145 [facility] Hematocrit Auto (Bld) [Volum e fraction]Ordered By: Louie Howard on 11-03-2023 Hematocrit (Bld) [Volume fraction] 32.4 % 40-54 [facility] Laboratory - Chemistry and C hemistry - challengeOrdered By: Louie Howard on 11-03-2023 CO2 [Moles/Vol] 36.0 mmol/L 21.0-32.0 [facility] Urea nitrogen/Creatinine [Mass ratio] 16.9 mg/mg 10-20 [facility] No Panel InformationOrdered By: Louie Howard on 11-03-2023 Estimated Creatinine Clearance Calc 87.11 ml/min [facility] Estimated GFR (MDRD) Amer 71 mL/min >60 [facility] Comment on above: GFR Calc Estimated GFR (MDRD) Non-Af Amer 58 mL/min >60 [facility] Comment on above: Non- GFR Calc Serum or plasma calcium isidro urement (mass/volume)Ordered By: Louie Howard on 11-03-2023 Calcium [Mass/Vol] 9.3 mg/dL 8.5-10.1 [facility] Serum or plasma creatinine m easurement (mass/volume)Ordered By: Louie Howard on 11-03-2023 Creatinine [Mass/Vol] 1.30 mg/dL 0.70-1.30 [facility] Comment on above: The validity of the calculated GFR & GFRAA in patients over 70 years has not been determined. Clinical correlation is essential. Serum or plasma urea nitroge n measurement (mass/volume)Ordered By: Louie Howard on 11-03-2023 Urea nitrogen [Mass/Vol] 22 mg/dL 7-18 [facility] Thin prep Papanicolaou smear with manual screeningOrdered By: Louie Howard on 11-03-2023 Thin prep Papanicolaou smear with manual screening 149 mg/dL 74-106 [facility] Comment on above: MANAGEMENT OF PATIEN T CARE PER NURSING PROTOCOL Thin prep Papanicolaou smear with manual screening 2 5-15 [facility] Basophil percentageOrdered B y: Dale Mack on 11-02-2023 Basophil percentage Not Reportable [facility] Basophils/100 WBC (Bld) 0.6 % 0-[address] [facility] Eosinophils/100 WBC (Bld) 4.1 % 0-5 [facility] Lymphocytes/100 WBC (Bld) 17.3 % 19-41 [facility] Monocytes/100 WBC (Bld) 13.4 % 0-[address] [facility] Neutrophils/100 WBC (Bld) 64.2 % 47-70 [facility] WBC (Bld) [#/Vol] 5.1 10*3/uL 4.4-11.0 [facility] Determination of erythrocyte mean corpuscular volume (MCV)Ordered By: Dale Mack on 11-02-2023 MCV (RBC) [Entitic vol] 90.8 fL 80-94 [facility] Erythrocyte distribution wid th ratioOrdered By: Dale Mack on 11-02-2023 Erythrocyte distribution width (RBC) [Ratio] 19.0 % 11.6-14.6 [facility] Laboratory - Hematology and Cell countsOrdered By: Dale Mack on 11-02-2023 Erythrocyte distribution width (RBC) [Entitic vol] 60.9 fL 35.1-43.9 [facility] Immature granulocytes/100 WBC (Bld) 0.400 % 0.0-0.9 [facility] Comment on above: IG% - Immature Granu locytes (promyelocytes, myelocytes and metamyelocytes) > 1% indicates that a LEFT SHIFT is Present. MCH (RBC) [Entitic mass] 26.2 pg 27.0-32.0 [facility] MCHC (RBC) [Mass/Vol] 28.8 g/dL 32-36 [facility] Platelet mean volume (Bld) [Entitic vol] 11.3 fL 6.2-12.0 [facility] Platelets bldOrdered By: Dale Mack on 11-02-2023 Platelets (Bld) [#/Vol] 248 10*3/uL 150-450 [facility] RBC Auto (Bld) [#/Vol]Ordere d By: Dale Mack on 11-02-2023 RBC (Bld) [#/Vol] 3.59 10*6/uL 4.6-6.2 [facility] Whole blood hemoglobin A1c/t otal hemoglobin ratio (mass fraction)Ordered By: Dale Mack on 11-02-2023 HbA1c (Bld) [Mass fraction] 5.2 % 3.8-5.6 [facility] Comment on above: Normal < 5.7 % Predi abetic 5.7 - 6.4 % Diabetic >or= 6.5 % Please note range changes. Absolute lymphocyte countOrd ered By: Sommer Xie on 10-29-2023 Lymphocytes Auto (Unsp spec) [#/Vol] 0.96 10*3/uL 0.83-4.51 [facility] Basophil percentageOrdered B y: Sommer Xie on 10-29-2023 Bilirubin [Mass/Vol] 0.70 mg/dL 0.20-1.00 [facility] Comment on above: For patients on eltr ombopag therapy, use of [employer] TBIL is not recommended. Protein [Mass/Vol] 6.3 g/dL 6.4-8.2 [facility] Iron measurement (mass/mass) Ordered By: Washington Ames on 10-29-2023 Iron (Unsp spec) [Mass/Mass] 33 ug/dL 65-175 [facility] Laboratory - Chemistry and C hemistry - challengeOrdered By: Sommer Xie on 10-29-2023 Albumin/Globulin [Mass ratio] 0.7 {ratio} 0.9-2.4 [facility] ALP [Catalytic activity/Vol] 74 U/L 45-117 [facility] ALT [Catalytic activity/Vol] 24 U/L 16-61 [facility] Globulin (S) [Mass/Vol] 3.8 g/dL 2.2-4.2 [facility] Laboratory - Chemistry and C hemistry - challengeOrdered By: Washington Ames on 10-29-2023 Cobalamin (Vitamin B12) [Mass/Vol] 340 pg/mL 211-911 [facility] Ferritin [Mass/Vol] 139 ng/mL 26-388 [facility] Laboratory - Hematology and Cell countsOrdered By: Sommer Xie on 10-29-2023 Nucleated RBC/100 WBC (Bld) [Ratio] 0 % 0-5 [facility] No Panel InformationOrdered By: Washington Ames on 10-29-2023 Folate 18.00 ng/mL 3.1-55.4 [facility] Total Iron Binding Capacity 234 ug/dL 250-450 [facility] Serum or plasma iron saturat ion measurement (mass fraction)Ordered By: Washington Ames on 10-29-2023 Iron saturation [Mass fraction] 14.1 % 15.0-55.0 [facility] Thin prep Papanicolaou smear with manual screeningOrdered By: Sommer Xie on 10-29-2023 Thin prep Papanicolaou smear with manual screening 2.5 g/dL 3.2-5.0 [facility] Thin prep Papanicolaou smear with manual screening 23 U/L 15-37 [facility] Absolute lymphocyte countOrd ered By: Wu Rincon on 10-28-2023 Lymphocytes Auto (Unsp spec) [#/Vol] 0.75 10*3/uL 0.83-4.51 [facility] Automated lymphocyte count a s percentage of total leukocytesOrdered By: Wu Rincon on 10-28-2023 Lymphocytes/100 WBC Auto (Unsp spec) 13.4 % 19-41 [facility] Basophil percentageOrdered B y: Wu Rincon on 10-28-2023 Basophils/100 WBC (Bld) 0.4 % 0-[address] [facility] Chloride [Moles/Vol] 108 mmol/L 98-107 [facility] Eosinophils/100 WBC (Bld) 1.8 % 0-5 [facility] Glucose [Mass/Vol] 139 mg/dL 74-106 [facility] Comment on above: Fasting Glucose resu lt greater than or equal to 126 mg/dL suggests DIABETES MELLITUS per A.D.A. criteria. Hemoglobin (Bld) [Mass/Vol] 8.7 g/dL 13.0-16.5 [facility] Monocytes/100 WBC (Bld) 9.3 % 0-[address] [facility] Neutrophils (Bld) [#/Vol] 4.2 10*3/uL 2.0-7.7 [facility] Neutrophils/100 WBC (Bld) 74.7 % 47-70 [facility] Potassium [Moles/Vol] 4.7 mmol/L 3.5-5.1 [facility] Sodium [Moles/Vol] 141 mmol/L 136-145 [facility] WBC (Bld) [#/Vol] 5.6 10*3/uL 4.4-11.0 [facility] Determination of erythrocyte mean corpuscular volume (MCV)Ordered By: Wu Rincon on 10-28-2023 MCV (RBC) [Entitic vol] 91.2 fL 80-[address] [facility] Erythrocyte distribution wid th ratioOrdered By: Wu Rincon on 10-28-2023 Erythrocyte distribution width (RBC) [Ratio] 18.6 % 11.6-14.6 [facility] Erythrocyte distribution wid th standard deviationOrdered By: uW Rincon on 10-28-2023 Erythrocyte distribution width (RBC) [Entitic vol] 60.4 fL 35.1-43.9 [facility] Hematocrit Auto (Bld) [Volum e fraction]Ordered By: Wu Rincon on 10-28-2023 Hematocrit (Bld) [Volume fraction] 30.1 % 40-54 [facility] Immature granulocytes/100 WB C Auto (Bld)Ordered By: Wu Rincon on 10-28-2023 Immature granulocytes/100 WBC (Bld) 0.400 % 0.0-0.9 [facility] Comment on above: IG% - Immature Granu locytes (promyelocytes, myelocytes and metamyelocytes) > 1% indicates that a LEFT SHIFT is Present. Laboratory - Chemistry and C hemistry - challengeOrdered By: Wu Rincon on 10-28-2023 CO2 [Moles/Vol] 34.0 mmol/L 21.0-32.0 [facility] Urea nitrogen/Creatinine [Mass ratio] 17.6 mg/mg 10-20 [facility] Laboratory - Hematology and Cell countsOrdered By: Wu Rincon on 10-28-2023 MCH (RBC) [Entitic mass] 26.4 pg 27.0-32.0 [facility] MCHC (RBC) [Mass/Vol] 28.9 g/dL 32-36 [facility] Nucleated RBC/100 WBC (Bld) [Ratio] 0 % 0-5 [facility] Platelet mean volume (Bld) [Entitic vol] 10.6 fL 6.2-12.0 [facility] Platelets (Bld) [#/Vol] 276 10*3/uL 150-450 [facility] No Panel InformationOrdered By: Wu Rincon on 10-28-2023 Estimated Creatinine Clearance Calc 98.18 ml/min [facility] Estimated GFR (MDRD) Amer 78 mL/min >60 [facility] Comment on above: GFR Calc Estimated GFR (MDRD) Non-Af Amer 65 mL/min >60 [facility] Comment on above: Non- GFR Calc Troponin I High Sensitivity 21 pg/mL 3.0-78.0 [facility] Comment on above: Please Note: New Michael t Units and Gender Specific Reference Ranges. For more information see Policy Stat Procedure [facility] High Sensitivity Troponin (TNIH) and attachments. RBC Auto (Bld) [#/Vol]Ordere d By: Wu Rincon on 10-28-2023 RBC (Bld) [#/Vol] 3.30 10*6/uL 4.6-6.2 [facility] Serum or plasma calcium isidro urement (mass/volume)Ordered By: Wu Rincon on 10-28-2023 Calcium [Mass/Vol] 8.8 mg/dL 8.5-10.1 [facility] Serum or plasma creatinine m easurement (mass/volume)Ordered By: Wu Rincon on 10-28-2023 Creatinine [Mass/Vol] 1.19 mg/dL 0.70-1.30 [facility] Comment on above: The validity of the calculated GFR & GFRAA in patients over 70 years has not been determined. Clinical correlation is essential. Serum or plasma urea nitroge n measurement (mass/volume)Ordered By: Wu Rincon on 10-28-2023 Urea nitrogen [Mass/Vol] 21 mg/dL 01-26 [facility] Thin prep Papanicolaou smear with manual screeningOrdered By: Wu Rincon on 10-28-2023 Thin prep Papanicolaou smear with manual screening -1 5-15 [facility] LABORATORYOrdered By: Aaliyah Hunt on 10-27-2023 Blood Glucose Testing Reason Routine (10/27/23 7:37 AM) [facility] Work Phone: Glucose [Mass/Vol] 88 mg/dL Normal 82 - 115 mg/dL [facility] Work Phone: CNPRosemarie 10-26-2023 REGANN Telephone (HEMAMOS) JADON ALVAREZ ([id number]) 1955 M Date Time Provider Department 10/26/23 DONOVAN EDMONDSON During your visit today, we recorded the following information about you: Bianca Nascimento 10/26/2023 12:44 PM Signed 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 Spoke with son and patient is still in hospital. Scheduled with Dr. Edmondson on 11/04/23. Bianca Nascimento Allergies As of Date: 10/26/2023 (Not on File) Date Reviewed: Never Reviewed Reason for Visit: New Patient [172] Problem List As Of Date: 10/26/2023 (None) Encounter Status:Closed by BIANCA NASCIMENTO on 10/26/23 Normal [facility] LABORATORYOrdered By: Javon Murphy on 10-26-2023 Blood Glucose Testing Reason Routine (10/26/23 8:59 PM) [facility] Work Phone: Glucose [Mass/Vol] 145 mg/dL High 82 - 115 mg/dL [facility] Work Phone: LABORATORYOrdered By: Дмитрий Call on 10-26-2023 Blood Glucose Testing Reason Routine (10/26/23 4:27 PM) [facility] Work Phone: Glucose [Mass/Vol] 166 mg/dL High 82 - 115 mg/dL [facility] Work Phone: .GFRon 10-25-2023 GFR 68 ml/min/1.73sqm Normal [facility] ([place]) Comment on above: Result Comment: GFR Population mean for , Non- Americans Ages 20-29 = 116 mL/min/1.73 sq.m. Ages 30-39 = 107 mL/min/1.73 sq.m. Ages 40-49 = 99 mL/min/1.73 sq.m. Ages 50-59 = 93 mL/min/1.73 sq.m. Ages 60-69 = 85 mL/min/1.73 sq.m. Ages 70+ = 75 mL/min/1.73 sq.m. Chronic Kidney Disease: Less than 60 mL/min/1.73 square meters End Stage Renal Disease: Less than 15 mL/min/1.73 square meters Performed By: #### A ALEXANDER RUTHERFORD #### [address] [address] GFR Non- 56 ml/min/1.73sqm Normal [facility] ([place]) Comment on above: Result Comment: GFR Population mean for , Non- Americans Ages 20-29 = 116 mL/min/1.73 sq.m. Ages 30-39 = 107 mL/min/1.73 sq.m. Ages 40-49 = 99 mL/min/1.73 sq.m. Ages 50-59 = 93 mL/min/1.73 sq.m. Ages 60-69 = 85 mL/min/1.73 sq.m. Ages 70+ = 75 mL/min/1.73 sq.m. Chronic Kidney Disease: Less than 60 mL/min/1.73 square meters End Stage Renal Disease: Less than 15 mL/min/1.73 square meters Performed By: #### A ALEXANDER RUTHERFORD #### [address] [address] BMPon 10-25-2023 BUN/Creatinine Ratio 17 ratio Normal 7-27 [facility] ([place]) Comment on above: Performed By: #### A ALEXANDER RUTHERFORD #### [address] [address] Calcium [Mass/Vol] 8.4 mg/dL Normal 8.4-10.2 [facility] ([place]) Comment on above: Performed By: #### A ALEXANDER RUTHERFORD #### [address] [address] Chloride [Moles/Vol] 106 mmol/L Normal 98-107 [facility] ([place]) Comment on above: Performed By: #### A ALEXANDER RUTHERFORD #### [address] [address] CO2 [Moles/Vol] 31 mmol/L Normal 23-31 [facility] ([place]) Comment on above: Performed By: #### A ALEXANDER RUTHERFORD #### [address] [address] Creatinine [Mass/Vol] 1.27 mg/dL Normal 0.70-1.30 [facility] ([place]) Comment on above: Performed By: #### A ALEXANDER RUTHERFORD #### [address] [address] Electrolyte Balance 5.0 mEq/L Normal 4.0-15.0 [facility] ([place]) Comment on above: Performed By: #### A ALEXANDER RUTHERFORD #### [address] [address] Glucose [Mass/Vol] 145 mg/dL High 80-115 [facility] ([place]) Comment on above: Performed By: #### A ALEXANDER RUTHERFORD #### [address] [address] Potassium [Moles/Vol] 4.7 mmol/L Normal 3.5-5.1 [facility] ([place]) Comment on above: Performed By: #### A ALEXANDER RUTHERFORD #### [address] [address] Sodium [Moles/Vol] 142 mmol/L Normal 136-145 [facility] ([place]) Comment on above: Performed By: #### A ALEXANDER RUTHERFORD #### [address] [address] Urea nitrogen [Mass/Vol] 22 mg/dL High 7-18 [facility] ([place]) Comment on above: Performed By: #### A ALEXANDER RUTHERFORD #### [address] [address] LABORATORYOrdered By: SYSTEM SYSTEM on 10-25-2023 Calcium [Mass/Vol] 8.4 mg/dL Normal 8.4 - 10. 2 mg/dL AO ADM SS Chloride [Moles/Vol] 106 mmol/L Normal 98 - 10 7 mmol/L AO ADM SS CO2 [Moles/Vol] 31 mmol/L Normal 23 - 31 mmol/L AO ADM SS Creatinine [Mass/Vol] 1.27 mg/dL Normal 0.70 - 1.30 mg/dL AO ADM SS Electrolyte Balance 5.0 mEq/L Normal 4.0 - 15 .0 mEq/L AO ADM SS GFR/1.73 sq M.predicted among blacks MDRD (S/P/Bld) [Vol rate/Area] 68 ml/min/1.73sqm Invalid Interpretation Code AO Chemistry S Comment on above: Interpretive Data: GFR Population mean for , Non- Americans Ages 20-29 = 116 mL/min/1.73 sq.m. Ages 30-39 = 107 mL/min/1.73 sq.m. Ages 40-49 = 99 mL/min/1.73 sq.m. Ages 50-59 = 93 mL/min/1.73 sq.m. Ages 60-69 = 85 mL/min/1.73 sq.m. Ages 70+ = 75 mL/min/1.73 sq.m. Chronic Kidney Disease: Less than 60 mL/min/1.73 square meters End Stage Renal Disease: Less than 15 mL/min/1.73 square meters GFR/1.73 sq M.predicted among non-blacks MDRD (S/P/Bld) [Vol rate/Area] 56 ml/min/1.73sqm Invalid Interpretation Code AO Chemistry S Comment on above: Interpretive Data: GFR Population mean for , Non- Americans Ages 20-29 = 116 mL/min/1.73 sq.m. Ages 30-39 = 107 mL/min/1.73 sq.m. Ages 40-49 = 99 mL/min/1.73 sq.m. Ages 50-59 = 93 mL/min/1.73 sq.m. Ages 60-69 = 85 mL/min/1.73 sq.m. Ages 70+ = 75 mL/min/1.73 sq.m. Chronic Kidney Disease: Less than 60 mL/min/1.73 square meters End Stage Renal Disease: Less than 15 mL/min/1.73 square meters Glucose [Mass/Vol] 145 mg/dL High 80 - 115 mg/dL AO ADM SS Potassium [Moles/Vol] 4.7 mmol/L Normal 3.5 - 5.1 mmol/L AO ADM SS Sodium [Moles/Vol] 142 mmol/L Normal 136 - 145 mmol/L AO ADM SS Urea nitrogen [Mass/Vol] 22 mg/dL High 7 - 18 mg/dL AO ADM SS Urea nitrogen/Creatinine [Mass ratio] 17 ratio Normal 7 - 27 ratio AO ADM SS .GFRon 10-21-2023 GFR Non- 48 ml/min/1.73sqm Normal [facility] ([place]) Comment on above: Result Comment: GFR Population mean for , Non- Americans Ages 20-29 = 116 mL/min/1.73 sq.m. Ages 30-39 = 107 mL/min/1.73 sq.m. Ages 40-49 = 99 mL/min/1.73 sq.m. Ages 50-59 = 93 mL/min/1.73 sq.m. Ages 60-69 = 85 mL/min/1.73 sq.m. Ages 70+ = 75 mL/min/1.73 sq.m. Chronic Kidney Disease: Less than 60 mL/min/1.73 square meters End Stage Renal Disease: Less than 15 mL/min/1.73 square meters Performed By: #### C BC, ADIFF, ANEU, BMP, GFR #### [address] [address] GFR 59 ml/min/1.73sqm Normal [facility] ([place]) Comment on above: Result Comment: GFR Population mean for , Non- Americans Ages 20-29 = 116 mL/min/1.73 sq.m. Ages 30-39 = 107 mL/min/1.73 sq.m. Ages 40-49 = 99 mL/min/1.73 sq.m. Ages 50-59 = 93 mL/min/1.73 sq.m. Ages 60-69 = 85 mL/min/1.73 sq.m. Ages 70+ = 75 mL/min/1.73 sq.m. Chronic Kidney Disease: Less than 60 mL/min/1.73 square meters End Stage Renal Disease: Less than 15 mL/min/1.73 square meters Performed By: #### C BC, ADIFF, ANEU, BMP, GFR #### [address] [address] BMPon 10-21-2023 BUN/Creatinine Ratio 17 ratio Normal 7-27 [facility] ([place]) Comment on above: Performed By: #### C BC, ADIFF, ANEU, BMP, GFR #### [address] [address] Calcium [Mass/Vol] 8.1 mg/dL Low 8.4-10.2 [facility] ([place]) Comment on above: Performed By: #### C BC, ADIFF, ANEU, BMP, GFR #### [address] [address] Chloride [Moles/Vol] 106 mmol/L Normal 98-107 [facility] ([place] Comment on above: Performed By: #### C BC, ADIFF, ANEU, BMP, GFR #### [address] [address] CO2 [Moles/Vol] 31 mmol/L Normal 23-31 [facility] ([place] Comment on above: Performed By: #### C BC, ADIFF, ANEU, BMP, GFR #### [address] [address] Creatinine [Mass/Vol] 1.45 mg/dL High 0.70-1.30 [facility] ([place]) Comment on above: Performed By: #### C BC, ADIFF, ANEU, BMP, GFR #### [address] [address] Electrolyte Balance 5.0 mEq/L Normal 4.0-15.0 [facility] ([place]) Comment on above: Performed By: #### C BC, ADIFF, ANEU, BMP, GFR #### [address] [address] Glucose [Mass/Vol] 136 mg/dL High 80-115 [facility] ([place] Comment on above: Performed By: #### C BC, ADIFF, ANEU, BMP, GFR #### [address] [address] Potassium [Moles/Vol] 5.3 mmol/L High 3.5-5.1 [facility] ([place] Comment on above: Performed By: #### C BC, ADIFF, ANEU, BMP, GFR #### [address] [address] Sodium [Moles/Vol] 142 mmol/L Normal 136-145 [facility] ([place] Comment on above: Performed By: #### C BC, ADIFF, ANEU, BMP, GFR #### [address] [address] Urea nitrogen [Mass/Vol] 24 mg/dL High 7-18 [facility] ([place] Comment on above: Performed By: #### C BC, ADIFF, ANEU, BMP, GFR #### [address] [address] LABORATORYOrdered By: SYSTEM SYSTEM on 10-21-2023 Calcium [Mass/Vol] 8.1 mg/dL Low 8.4 - 10. 2 mg/dL AO ADM SS Chloride [Moles/Vol] 106 mmol/L Normal 98 - 10 7 mmol/L AO ADM SS CO2 [Moles/Vol] 31 mmol/L Normal 23 - 31 mmol/L AO ADM SS Creatinine [Mass/Vol] 1.45 mg/dL High 0.70 - 1.30 mg/dL AO ADM SS Electrolyte Balance 5.0 mEq/L Normal 4.0 - 15 .0 mEq/L AO ADM SS GFR/1.73 sq M.predicted among blacks MDRD (S/P/Bld) [Vol rate/Area] 59 ml/min/1.73sqm Invalid Interpretation Code AO Chemistry S Comment on above: Interpretive Data: GFR Population mean for , Non- Americans Ages 20-29 = 116 mL/min/1.73 sq.m. Ages 30-39 = 107 mL/min/1.73 sq.m. Ages 40-49 = 99 mL/min/1.73 sq.m. Ages 50-59 = 93 mL/min/1.73 sq.m. Ages 60-69 = 85 mL/min/1.73 sq.m. Ages 70+ = 75 mL/min/1.73 sq.m. Chronic Kidney Disease: Less than 60 mL/min/1.73 square meters End Stage Renal Disease: Less than 15 mL/min/1.73 square meters GFR/1.73 sq M.predicted among non-blacks MDRD (S/P/Bld) [Vol rate/Area] 48 ml/min/1.73sqm Invalid Interpretation Code AO Chemistry S Comment on above: Interpretive Data: GFR Population mean for , Non- Americans Ages 20-29 = 116 mL/min/1.73 sq.m. Ages 30-39 = 107 mL/min/1.73 sq.m. Ages 40-49 = 99 mL/min/1.73 sq.m. Ages 50-59 = 93 mL/min/1.73 sq.m. Ages 60-69 = 85 mL/min/1.73 sq.m. Ages 70+ = 75 mL/min/1.73 sq.m. Chronic Kidney Disease: Less than 60 mL/min/1.73 square meters End Stage Renal Disease: Less than 15 mL/min/1.73 square meters Glucose [Mass/Vol] 136 mg/dL High 80 - 115 mg/dL AO ADM SS Potassium [Moles/Vol] 5.3 mmol/L High 3.5 - 5.1 mmol/L AO ADM SS Sodium [Moles/Vol] 142 mmol/L Normal 136 - 145 mmol/L AO ADM SS Urea nitrogen [Mass/Vol] 24 mg/dL High 7 - 18 mg/dL AO ADM SS Urea nitrogen/Creatinine [Mass ratio] 17 ratio Normal 7 - 27 ratio AO ADM SS .Auto Diffon 10-20-2023 Basophil, Absolute 0.0 10 3/mcL Normal 0.0-0.2 [facility] ([place]) Comment on above: Performed By: #### A ALEXANDER RUTHERFORD #### [address] [address] Basophils/100 WBC (Bld) 0.6 % Normal 0.0-2.5 A [facility] ([place]) Comment on above: Performed By: #### A ALEXANDER RUTHERFORD #### [address] [address] Eosinophil, Absolute 0.2 10 3/mcL Normal 0.0-0.4 [facility] ([place]) Comment on above: Performed By: #### A ALEXANDER RUTHERFORD #### [address] [address] Eosinophils/100 WBC (Bld) 2.4 % Normal 0.0-7.0 [facility] ([place]) Comment on above: Performed By: #### A KRISH, ABOGEL #### [address] [address] Lymphocyte, Absolute 1.0 10 3/mcL Normal 0.8-3.9 [facility] ([place]) Comment on above: Performed By: #### A KRISH, ABOGEL #### [address] [address] Lymphocytes/100 WBC (Bld) 13.3 % Normal 10.0-50.0 [facility] ([place]) Comment on above: Performed By: #### A KRISH, ABOGEL #### [address] [address] Monocyte, Absolute 0.9 10 3/mcL Normal 0.2-1.0 [facility] ([place]) Comment on above: Performed By: #### A KRISH, ABOGEL #### [address] [address] Monocytes/100 WBC (Bld) 11.8 % Normal 1.7-13.0 A [facility] ([place]) Comment on above: Performed By: #### A KRISH, ABOGEL #### [address] [address] Neutrophils/100 WBC (Bld) 71.9 % Normal 37.0-80.0 [facility] ([place]) Comment on above: Performed By: #### A BSMERISSA, ABOGEL #### [address] [address] .GFRon 10-20-2023 GFR 74 ml/min/1.73sqm Normal [facility] ([place]) Comment on above: Result Comment: GFR Population mean for , Non- Americans Ages 20-29 = 116 mL/min/1.73 sq.m. Ages 30-39 = 107 mL/min/1.73 sq.m. Ages 40-49 = 99 mL/min/1.73 sq.m. Ages 50-59 = 93 mL/min/1.73 sq.m. Ages 60-69 = 85 mL/min/1.73 sq.m. Ages 70+ = 75 mL/min/1.73 sq.m. Chronic Kidney Disease: Less than 60 mL/min/1.73 square meters End Stage Renal Disease: Less than 15 mL/min/1.73 square meters Performed By: #### C BC, ADIFF, ANEU, BMP, GFR ####[address] [place], [place] [address] GFR Non- 61 ml/min/1.73sqm Normal [facility] ([place]) Comment on above: Result Comment: GFR Population mean for , Non- Americans Ages 20-29 = 116 mL/min/1.73 sq.m. Ages 30-39 = 107 mL/min/1.73 sq.m. Ages 40-49 = 99 mL/min/1.73 sq.m. Ages 50-59 = 93 mL/min/1.73 sq.m. Ages 60-69 = 85 mL/min/1.73 sq.m. Ages 70+ = 75 mL/min/1.73 sq.m. Chronic Kidney Disease: Less than 60 mL/min/1.73 square meters End Stage Renal Disease: Less than 15 mL/min/1.73 square meters Performed By: #### C BC, ADIFF, ANEU, BMP, GFR ####[address] [place], [place] [address] .NEUABSon 10-20-2023 Neutrophil, Absolute 5.4 10 3/mcL Normal 2.9-6.2 [facility] ([place]) Comment on above: Performed By: #### A ALEXANDER RUTHERFORD #### [facility] [address] [place] [address] BMPon 10-20-2023 BUN/Creatinine Ratio 20 ratio Normal 7-27 [facility] ([place]) Comment on above: Performed By: #### C BC, ADIFF, ANEU, BMP, GFR ####[address] [place], [place] [address] Calcium [Mass/Vol] 8.0 mg/dL Low 8.4-10.2 [facility] ([place]) Comment on above: Performed By: #### C BC, ADIFF, ANEU, BMP, GFR ####[address] [place], [place] [address] Chloride [Moles/Vol] 106 mmol/L Normal 98-107 [facility] ([place] Comment on above: Performed By: #### C BC, ADIFF, ANEU, BMP, GFR ####[address] [place], [place] [address] CO2 [Moles/Vol] 32 mmol/L High 23-31 [facility] ([place] Comment on above: Performed By: #### C BC, ADIFF, ANEU, BMP, GFR ####[address] [place], [place] [address] Creatinine [Mass/Vol] 1.18 mg/dL Normal 0.70-1.30 [facility] ([place]) Comment on above: Performed By: #### C BC, ADIFF, ANEU, BMP, GFR ####[address] [place], [place] [address] Electrolyte Balance 5.0 mEq/L Normal 4.0-15.0 [facility] ([place]) Comment on above: Performed By: #### C BC, ADIFF, ANEU, BMP, GFR ####[address] [place], [place] [address] Glucose [Mass/Vol] 119 mg/dL High 80-115 [facility] ([place] Comment on above: Performed By: #### C BC, ADIFF, ANEU, BMP, GFR ####[address] [place], [place] [address] Potassium [Moles/Vol] 5.4 mmol/L High 3.5-5.1 [facility] ([place] Comment on above: Performed By: #### C BC, ADIFF, ANEU, BMP, GFR ####[address] [place], [place] [address] Sodium [Moles/Vol] 143 mmol/L Normal 136-145 [facility] ([place] Comment on above: Performed By: #### C BC, ADIFF, ANEU, BMP, GFR ####[address] [place], [place] [address] Urea nitrogen [Mass/Vol] 24 mg/dL High 7-18 [facility] ([place] Comment on above: Performed By: #### C BC, ADIFF, ANEU, BMP, GFR ####[address] [place], [place] [address] CBCon 10-20-2023 Erythrocyte distribution width (RBC) [Ratio] 17.6 % High 11.5-14.5 [facility] ([place]) Comment on above: Performed By: #### A BSMERISSA ABOGEL #### [address] [address] Hematocrit (Bld) [Volume fraction] 24.1 % Low 42.0-52.0 [facility] ([place] Comment on above: Performed By: #### A BSMERISSA, ABOGEL #### [address] [address] Hgb 7.8 G/dL Low 14.0-18.0 [facility] ([place] Comment on above: Performed By: #### A BSMERISSA ABOGEL #### [address] [address] MCH (RBC) [Entitic mass] 27.6 pg Normal 27.0-31.2 [facility] ([place] Comment on above: Performed By: #### A BSMERISSA, ABOGEL #### [address] [address] MCHC 32.4 G/dL Normal 31.8-35.4 [facility] ([place] Comment on above: Performed By: #### A BSMERISSA, ABOGEL #### [address] [address] MCV (RBC) [Entitic vol] 85.2 fL Normal 80.0-94.0 Counts include 234 beds at the [facility] ([place]) Comment on above: Performed By: #### A BSMERISSA, ABOGEL #### [address] [address] Platelet 306 10 3/mcL Normal 130-400 [facility] ([place] Comment on above: Performed By: #### A BSGEL, ABOGEL #### [address] [address] Platelet mean volume (Bld) [Entitic vol] 8.5 fL Normal 7.4-10.4 [facility] ([place] Comment on above: Performed By: #### A BSGEL, ABOGEL #### [address] [address] RBC 2.83 10 6/mcL Low 4.04-6.13 [facility] ([place] Comment on above: Performed By: #### A BSGEL, ABOGEL #### [address] [address] WBC 7.5 10 3/mcL Normal 4.6-10.8 [facility] ([place] Comment on above: Performed By: #### A BSGEL, ABOGEL #### [address] [address] LABORATORYOrdered By: SYSTEM SYSTEM on 10-20-2023 Basophil, Absolute 0.0 103/mcL Normal 0.0 - 0.2 10^3/mcL AO Workflow SS Basophils/100 WBC (Bld) 0.6 % Normal 0.0 - 2.5 % AO Workflow SS Calcium [Mass/Vol] 8.0 mg/dL Low 8.4 - 10. 2 mg/dL AO ADM SS Chloride [Moles/Vol] 106 mmol/L Normal 98 - 10 7 mmol/L AO ADM SS CO2 [Moles/Vol] 32 mmol/L High 23 - 31 mmol/L AO ADM SS Creatinine [Mass/Vol] 1.18 mg/dL Normal 0.70 - 1.30 mg/dL AO ADM SS Electrolyte Balance 5.0 mEq/L Normal 4.0 - 15 .0 mEq/L AO ADM SS Eosinophil, Absolute 0.2 103/mcL Normal 0.0 - 0 .4 10^3/mcL AO Workflow SS Eosinophils/100 WBC (Bld) 2.4 % Normal 0.0 - 7.0 % AO Workflow SS Erythrocyte distribution width (RBC) [Ratio] 17.6 % High 11.5 - 14.5 % AO Workflow SS GFR/1.73 sq M.predicted among blacks MDRD (S/P/Bld) [Vol rate/Area] 74 ml/min/1.73sqm Invalid Interpretation Code AO Chemistry S Comment on above: Interpretive Data: GFR Population mean for , Non- Americans Ages 20-29 = 116 mL/min/1.73 sq.m. Ages 30-39 = 107 mL/min/1.73 sq.m. Ages 40-49 = 99 mL/min/1.73 sq.m. Ages 50-59 = 93 mL/min/1.73 sq.m. Ages 60-69 = 85 mL/min/1.73 sq.m. Ages 70+ = 75 mL/min/1.73 sq.m. Chronic Kidney Disease: Less than 60 mL/min/1.73 square meters End Stage Renal Disease: Less than 15 mL/min/1.73 square meters GFR/1.73 sq M.predicted among non-blacks MDRD (S/P/Bld) [Vol rate/Area] 61 ml/min/1.73sqm Invalid Interpretation Code AO Chemistry S Comment on above: Interpretive Data: GFR Population mean for , Non- Americans Ages 20-29 = 116 mL/min/1.73 sq.m. Ages 30-39 = 107 mL/min/1.73 sq.m. Ages 40-49 = 99 mL/min/1.73 sq.m. Ages 50-59 = 93 mL/min/1.73 sq.m. Ages 60-69 = 85 mL/min/1.73 sq.m. Ages 70+ = 75 mL/min/1.73 sq.m. Chronic Kidney Disease: Less than 60 mL/min/1.73 square meters End Stage Renal Disease: Less than 15 mL/min/1.73 square meters Glucose [Mass/Vol] 119 mg/dL High 80 - 115 mg/dL AO ADM SS Hematocrit (Bld) [Volume fraction] 24.1 % Low 42.0 - 52.0 % AO Workflow SS Hemoglobin (Bld) [Mass/Vol] 7.8 G/dL Low 14.0 - 18.0 G/dL AO Workflow SS Lymphocyte, Absolute 1.0 103/mcL Normal 0.8 - 3 .9 10^3/mcL AO Workflow SS Lymphocytes/100 WBC (Bld) 13.3 % Normal 10.0 - 50.0 % AO Workflow SS MCH (RBC) [Entitic mass] 27.6 pg Normal 27.0 - 31.2 pg AO Workflow SS MCHC 32.4 G/dL Normal 31.8 - 35.4 G/dL AO Workflow SS MCV (RBC) [Entitic vol] 85.2 fL Normal 80.0 - 94.0 fL AO Workflow SS Monocyte, Absolute 0.9 103/mcL Normal 0.2 - 1.0 10^3/mcL AO Workflow SS Monocytes/100 WBC (Bld) 11.8 % Normal 1.7 - 13.0 % AO Workflow SS Neutrophil, Absolute 5.4 103/mcL Normal 2.9 - 6 .2 10^3/mcL AO Workflow SS Neutrophils/100 WBC (Bld) 71.9 % Normal 37.0 - 80.0 % AO Workflow SS Platelet mean volume (Bld) [Entitic vol] 8.5 fL Normal 7.4 - 10.4 fL AO Workflow SS Platelets (Bld) [#/Vol] 306 103/mcL Normal 130 - 400 10^3/mcL AO Workflow SS Potassium [Moles/Vol] 5.4 mmol/L High 3.5 - 5.1 mmol/L AO ADM SS RBC (Bld) [#/Vol] 2.83 106/mcL Low 4.04 - 6.1 3 10^6/mcL AO Workflow SS Sodium [Moles/Vol] 143 mmol/L Normal 136 - 145 mmol/L AO ADM SS Urea nitrogen [Mass/Vol] 24 mg/dL High 7 - 18 mg/dL AO ADM SS Urea nitrogen/Creatinine [Mass ratio] 20 ratio Normal 7 - 27 ratio AO ADM SS WBC (Bld) [#/Vol] 7.5 103/mcL Normal 4.6 - 10.8 10^3/mcL AO Workflow SS .Auto Diffon 10-15-2023 Basophil, Absolute 0.1 10 3/mcL Normal 0.0-0.2 [facility] ([place]) Comment on above: Performed By: #### C ZARA CAMACHO ANEU, BMP, GFR #### Denise [address] [address] Basophils/100 WBC (Bld) 0.8 % Normal 0.0-2.5 A [facility] ([place]) Comment on above: Performed By: #### C BC, ADIFF, ANEU, BMP, GFR #### [address] [address] Eosinophil, Absolute 0.1 10 3/mcL Normal 0.0-0.4 [facility] ([place]) Comment on above: Performed By: #### C BC, ADIFF, ANEU, BMP, GFR #### [address] [address] Eosinophils/100 WBC (Bld) 1.7 % Normal 0.0-7.0 [facility] ([place]) Comment on above: Performed By: #### C BC, ADIFF, ANEU, BMP, GFR #### [address] [address] Lymphocyte, Absolute 1.3 10 3/mcL Normal 0.8-3.9 [facility] ([place]) Comment on above: Performed By: #### C BC, ADIFF, ANEU, BMP, GFR #### [address] [address] Lymphocytes/100 WBC (Bld) 15.3 % Normal 10.0-50.0 [facility] ([place]) Comment on above: Performed By: #### C BC, ADIFF, ANEU, BMP, GFR #### [address] [address] Monocyte, Absolute 1.1 10 3/mcL High 0.2-1.0 [facility] ([place]) Comment on above: Performed By: #### C BC, ADIFF, ANEU, BMP, GFR #### [address] [address] Monocytes/100 WBC (Bld) 13.1 % High 1.7-13.0 Counts include 234 beds at the [facility] ([place]) Comment on above: Performed By: #### C BC, ADIFF, ANEU, BMP, GFR #### [address] [address] Neutrophils/100 WBC (Bld) 69.1 % Normal 37.0-80.0 [facility] ([place]) Comment on above: Performed By: #### C BC, ADIFF, ANEU, BMP, GFR #### [facility] [address] [place], [place] [address] .GFRon 10-15-2023 GFR 63 ml/min/1.73sqm Normal [facility] ([place]) Comment on above: Result Comment: GFR Population mean for , Non- Americans Ages 20-29 = 116 mL/min/1.73 sq.m. Ages 30-39 = 107 mL/min/1.73 sq.m. Ages 40-49 = 99 mL/min/1.73 sq.m. Ages 50-59 = 93 mL/min/1.73 sq.m. Ages 60-69 = 85 mL/min/1.73 sq.m. Ages 70+ = 75 mL/min/1.73 sq.m. Chronic Kidney Disease: Less than 60 mL/min/1.73 square meters End Stage Renal Disease: Less than 15 mL/min/1.73 square meters Performed By: #### A ALEXANDER RUTHERFORD #### [place] [address] GFR Non- 52 ml/min/1.73sqm Normal [facility] ([place]) Comment on above: Result Comment: GFR Population mean for , Non- Americans Ages 20-29 = 116 mL/min/1.73 sq.m. Ages 30-39 = 107 mL/min/1.73 sq.m. Ages 40-49 = 99 mL/min/1.73 sq.m. Ages 50-59 = 93 mL/min/1.73 sq.m. Ages 60-69 = 85 mL/min/1.73 sq.m. Ages 70+ = 75 mL/min/1.73 sq.m. Chronic Kidney Disease: Less than 60 mL/min/1.73 square meters End Stage Renal Disease: Less than 15 mL/min/1.73 square meters Performed By: #### A ALEXANDER RUTHERFORD #### [address] [address] .NEUABSon 10-15-2023 Neutrophil, Absolute 5.8 10 3/mcL Normal 2.9-6.2 [facility] ([place]) Comment on above: Performed By: #### C BC, ADIFF, ANEU, BMP, GFR #### Denise [place] [address] [place], [place] [address] BMPon 10-15-2023 BUN/Creatinine Ratio 18 ratio Normal 7-27 [facility] ([place]) Comment on above: Performed By: #### A RUBIO RUTHERFORDGEL #### [address] [address] Calcium [Mass/Vol] 8.0 mg/dL Low 8.4-10.2 [facility] ([place]) Comment on above: Performed By: #### A RUBIO RUTHERFORDGEL #### [address] [address] Chloride [Moles/Vol] 105 mmol/L Normal 98-107 [facility] ([place] Comment on above: Performed By: #### A RUBIO RUTHERFORDGEL #### [address] [address] CO2 [Moles/Vol] 31 mmol/L Normal 23-31 [facility] ([place]) Comment on above: Performed By: #### A ALEXANDER RUTHERFORD #### [address] [address] Creatinine [Mass/Vol] 1.37 mg/dL High 0.70-1.30 [facility] ([place]) Comment on above: Performed By: #### A RUBIO RUTHERFORDGEL #### [address] [address] Electrolyte Balance 7.0 mEq/L Normal 4.0-15.0 [facility] ([place]) Comment on above: Performed By: #### A RUBIO RUTHERFORDGEL #### [address] [address] Glucose [Mass/Vol] 104 mg/dL Normal 80-115 [facility] ([place]) Comment on above: Performed By: #### A ALEXANDER RUTHERFORD #### [address] [address] Potassium [Moles/Vol] 5.0 mmol/L Normal 3.5-5.1 [facility] ([place]) Comment on above: Performed By: #### A ALEXANDER RUTHERFORD #### [address] [address] Sodium [Moles/Vol] 143 mmol/L Normal 136-145 [facility] ([place]) Comment on above: Performed By: #### A ALEXANDER RUTHERFORD #### [address] [address] Urea nitrogen [Mass/Vol] 24 mg/dL High 7-18 [facility] ([place] Comment on above: Performed By: #### A ALEXANDER RUTHERFORD #### [address] [address] CBCon 10-15-2023 Erythrocyte distribution width (RBC) [Ratio] 17.8 % High 11.5-14.5 [facility] ([place] Comment on above: Performed By: #### C BC, ADIFF, ANEU, BMP, GFR #### [address] [address] Hematocrit (Bld) [Volume fraction] 23.7 % Low 42.0-52.0 [facility] ([place] Comment on above: Performed By: #### C BC, ADIFF, ANEU, BMP, GFR #### [address] [address] Hgb 7.9 G/dL Low 14.0-18.0 [facility] ([place] Comment on above: Performed By: #### C BC, ADIFF, ANEU, BMP, GFR #### [address] [address] MCH (RBC) [Entitic mass] 28.3 pg Normal 27.0-31.2 [facility] ([place] Comment on above: Performed By: #### C BC, ADIFF, ANEU, BMP, GFR #### [address] [address] MCHC 33.2 G/dL Normal 31.8-35.4 [facility] ([place] Comment on above: Performed By: #### C BC, ADIFF, ANEU, BMP, GFR #### [address] [address] MCV (RBC) [Entitic vol] 85.4 fL Normal 80.0-94.0 A [facility] ([place] Comment on above: Performed By: #### C BC, ADIFF, ANEU, BMP, GFR #### [address] [address] Platelet 377 10 3/mcL Normal 130-400 [facility] ([place] Comment on above: Performed By: #### C BC, ADIFF, ANEU, BMP, GFR #### [address] [address] Platelet mean volume (Bld) [Entitic vol] 8.4 fL Normal 7.4-10.4 [facility] ([place] Comment on above: Performed By: #### C BC, ADIFF, ANEU, BMP, GFR #### [address] [address] RBC 2.77 10 6/mcL Low 4.04-6.13 [facility] ([place] Comment on above: Performed By: #### C BC, ADIFF, ANEU, BMP, GFR #### [address] [address] WBC 8.4 10 3/mcL Normal 4.6-10.8 [facility] ([place] Comment on above: Performed By: #### C BC, ADIFF, ANEU, BMP, GFR #### [address] [address] LABORATORYOrdered By: SYSTEM SYSTEM on 10-15-2023 Basophil, Absolute 0.1 103/mcL Normal 0.0 - 0.2 10^3/mcL AO Workflow SS Basophils/100 WBC (Bld) 0.8 % Normal 0.0 - 2.5 % AO Workflow SS Eosinophil, Absolute 0.1 103/mcL Normal 0.0 - 0 .4 10^3/mcL AO Workflow SS Eosinophils/100 WBC (Bld) 1.7 % Normal 0.0 - 7.0 % AO Workflow SS Erythrocyte distribution width (RBC) [Ratio] 17.8 % High 11.5 - 14.5 % AO Workflow SS Hematocrit (Bld) [Volume fraction] 23.7 % Low 42.0 - 52.0 % AO Workflow SS Hemoglobin (Bld) [Mass/Vol] 7.9 G/dL Low 14.0 - 18.0 G/dL AO Workflow SS Lymphocyte, Absolute 1.3 103/mcL Normal 0.8 - 3 .9 10^3/mcL AO Workflow SS Lymphocytes/100 WBC (Bld) 15.3 % Normal 10.0 - 50.0 % AO Workflow SS MCH (RBC) [Entitic mass] 28.3 pg Normal 27.0 - 31.2 pg AO Workflow SS MCHC 33.2 G/dL Normal 31.8 - 35.4 G/dL AO Workflow SS MCV (RBC) [Entitic vol] 85.4 fL Normal 80.0 - 94.0 fL AO Workflow SS Monocyte, Absolute 1.1 103/mcL High 0.2 - 1.0 10^3/mcL AO Workflow SS Monocytes/100 WBC (Bld) 13.1 % High 1.7 - 13.0 % AO Workflow SS Neutrophil, Absolute 5.8 103/mcL Normal 2.9 - 6 .2 10^3/mcL AO Workflow SS Neutrophils/100 WBC (Bld) 69.1 % Normal 37.0 - 80.0 % AO Workflow SS Platelet mean volume (Bld) [Entitic vol] 8.4 fL Normal 7.4 - 10.4 fL AO Workflow SS Platelets (Bld) [#/Vol] 377 103/mcL Normal 130 - 400 10^3/mcL AO Workflow SS RBC (Bld) [#/Vol] 2.77 106/mcL Low 4.04 - 6.1 3 10^6/mcL AO Workflow SS WBC (Bld) [#/Vol] 8.4 103/mcL Normal 4.6 - 10.8 10^3/mcL AO Workflow SS LABORATORYOrdered By: Zayra Yap on 10-13-2023 Blood Glucose Testing Reason Routine (10/13/23 4:56 PM) [facility] Work Phone: Glucose [Mass/Vol] 121 mg/dL High 82 - 115 mg/dL [facility] Work Phone: LABORATORYOrdered By: Jaquelin Olivo on 10-13-2023 Glucose [Mass/Vol] 120 mg/dL High 82 - 115 mg/dL [facility] Work Phone: Glucose [Mass/Vol] 101 mg/dL Normal 82 - 115 mg/dL [facility] Work Phone: .Auto Diffon 10-12-2023 Basophil, Absolute 0.0 10 3/mcL Normal 0.0-0.3 [facility] ([place] Comment on above: Performed By: #### C BC, ADIFF, ANEU, BMP, GFR #### [address] [address] Basophils/100 WBC (Bld) 0.6 % Normal 0.0-2.5 A [facility] ([place]) Comment on above: Performed By: #### C BC, ADIFF, ANEU, BMP, GFR #### [address] [address] Eosinophil, Absolute 0.2 10 3/mcL Normal 0.0-0.7 [facility] ([place]) Comment on above: Performed By: #### C BC, ADIFF, ANEU, BMP, GFR #### [address] [address] Eosinophils/100 WBC (Bld) 2.3 % Normal 0.0-6.0 [facility] ([place] Comment on above: Performed By: #### C BC, ADIFF, ANEU, BMP, GFR #### [address] [address] Lymphocyte, Absolute 0.9 10 3/mcL Normal 0.9-4.3 [facility] ([place] Comment on above: Performed By: #### C BC, ADIFF, ANEU, BMP, GFR #### [address] [address] Lymphocytes/100 WBC (Bld) 10.2 % Low 20.0-40.0 [facility] ([place] Comment on above: Performed By: #### C BC, ADIFF, ANEU, BMP, GFR #### [address] [address] Monocyte, Absolute 1.2 10 3/mcL Normal 0.1-1.4 [facility] ([place] Comment on above: Performed By: #### C BC, ADIFF, ANEU, BMP, GFR #### [address] [address] Monocytes/100 WBC (Bld) 14.1 % High 2.0-13.0 A [facility] ([place] Comment on above: Performed By: #### C BC, ADIFF, ANEU, BMP, GFR #### [address] [address] Neutrophils/100 WBC (Bld) 72.8 % Normal 50.0-75.0 [facility] ([place]) Comment on above: Performed By: #### C BC, ADIFF, ANEU, BMP, GFR #### [address] [address] .GFRon 10-12-2023 GFR Non- >60 Normal [facility] ([place] Comment on above: Result Comment: GFR Population mean for , Non- Americans Ages 20-29 = 116 mL/min/1.73 sq.m. Ages 30-39 = 107 mL/min/1.73 sq.m. Ages 40-49 = 99 mL/min/1.73 sq.m. Ages 50-59 = 93 mL/min/1.73 sq.m. Ages 60-69 = 85 mL/min/1.73 sq.m. Ages 70+ = 75 mL/min/1.73 sq.m. Chronic Kidney Disease: Less than 60 mL/min/1.73 square meters End Stage Renal Disease: Less than 15 mL/min/1.73 square meters Performed By: #### C BC, ADIFF, ANEU, BMP, GFR #### [address] [address] GFR >60 Normal [facility] ([place] Comment on above: Result Comment: GFR Population mean for , Non- Americans Ages 20-29 = 116 mL/min/1.73 sq.m. Ages 30-39 = 107 mL/min/1.73 sq.m. Ages 40-49 = 99 mL/min/1.73 sq.m. Ages 50-59 = 93 mL/min/1.73 sq.m. Ages 60-69 = 85 mL/min/1.73 sq.m. Ages 70+ = 75 mL/min/1.73 sq.m. Chronic Kidney Disease: Less than 60 mL/min/1.73 square meters End Stage Renal Disease: Less than 15 mL/min/1.73 square meters Performed By: #### C BC, ADIFF, ANEU, BMP, GFR #### [address] [address] .NEUABSon 10-12-2023 Neutrophil, Absolute 6.2 10 3/mcL Normal 2.3-8.1 [facility] ([place]) Comment on above: Performed By: #### C BC, ADIFF, ANEU, BMP, GFR #### [place] [id number] BMPon 10-12-2023 CO2 [Moles/Vol] 26 mmol/L Normal 22-32 [facility] ([place]) Comment on above: Order Comment: notif ied dave Performed By: #### C BC, ADIFF, ANEU, BMP, GFR #### [address] [address] Electrolyte Balance 7.0 mEq/L Normal 4.0-15.0 [facility] ([place]) Comment on above: Order Comment: notif ied dave Performed By: #### C BC, ADIFF, ANEU, BMP, GFR #### [address] [address] BUN/Creatinine Ratio 32.7 ratio High 10.0-22.0 [facility] ([place] Comment on above: Order Comment: notif ied dave Performed By: #### C BC, ADIFF, ANEU, BMP, GFR #### [address] [address] Calcium [Mass/Vol] 8.3 mg/dL Low 8.7-10.4 [facility] ([place]) Comment on above: Order Comment: notif ied dave Performed By: #### C BC, ADIFF, ANEU, BMP, GFR #### [address] [address] Chloride [Moles/Vol] 108 mmol/L Normal 98-110 [facility] ([place] Comment on above: Order Comment: notif ied dave Performed By: #### C BC, ADIFF, ANEU, BMP, GFR #### [address] [address] Creatinine [Mass/Vol] 1.07 mg/dL Normal 0.60-1.40 [facility] ([place]) Comment on above: Order Comment: notif ied dave Performed By: #### C BC, ADIFF, ANEU, BMP, GFR #### [address] [address] Glucose [Mass/Vol] 118 mg/dL High 82-115 [facility] ([place] Comment on above: Order Comment: notif ied dave Performed By: #### C BC, ADIFF, ANEU, BMP, GFR #### [address] [address] Potassium [Moles/Vol] 5.2 mmol/L High 3.5-5.0 [facility] ([place] Comment on above: Order Comment: notif ied dave Performed By: #### C BC, ADIFF, ANEU, BMP, GFR #### [address] [address] Sodium [Moles/Vol] 141 mmol/L Normal 136-145 [facility] ([place]) Comment on above: Order Comment: notif ied dave Performed By: #### C BC, ADIFF, ANEU, BMP, GFR #### [address] [address] Urea nitrogen [Mass/Vol] 35.0 mg/dL High 8.0-22.0 [facility] ([place] Comment on above: Order Comment: notif ied dave Performed By: #### C BC, ADIFF, ANEU, BMP, GFR #### [address] [address] CBCon 10-12-2023 Erythrocyte distribution width (RBC) [Ratio] 17.3 % High 11.5-15.5 [facility] ([place] Comment on above: Performed By: #### C BC, ADIFF, ANEU, BMP, GFR #### [address] [address] Hematocrit (Bld) [Volume fraction] 23.1 % Low 40.0-52.0 [facility] ([place] Comment on above: Performed By: #### C BC, ADIFF, ANEU, BMP, GFR #### [place] [id number] Hgb 7.6 G/dL Low 13.0-17.5 [facility] ([place] Comment on above: Performed By: #### C BC, ADIFF, ANEU, BMP, GFR #### [place] [id number] MCH (RBC) [Entitic mass] 28.6 pg Normal 27.0-33.0 [facility] ([place] Comment on above: Performed By: #### C BC, ADIFF, ANEU, BMP, GFR #### [place] [address] MCHC 32.8 G/dL Normal 32.0-36.0 [facility] ([place] Comment on above: Performed By: #### C BC, ADIFF, ANEU, BMP, GFR #### [place] [id number] MCV (RBC) [Entitic vol] 87.1 fL Normal 81.0-100.0 A [facility] ([place] Comment on above: Performed By: #### C BC, ADIFF, ANEU, BMP, GFR #### [address] [address] Platelet 316 10 3/mcL Normal 150-450 [facility] ([place] Comment on above: Performed By: #### C BC, ADIFF, ANEU, BMP, GFR #### [address] [address] Platelet mean volume (Bld) [Entitic vol] 9.0 fL Normal 6.4-10.5 [facility] ([place] Comment on above: Performed By: #### C BC, ADIFF, ANEU, BMP, GFR #### [facility] [address] [place], [place] [address] RBC 2.65 10 6/mcL Low 4.50-6.00 [facility] ([place] Comment on above: Performed By: #### C BC, ADIFF, ANEU, BMP, GFR #### Denise [place] [address] [place], [place] [address] WBC 8.5 10 3/mcL Normal 4.5-10.8 [facility] ([place] Comment on above: Performed By: #### C BC, ADIFF, ANEU, BMP, GFR #### [facility] [address] [place], [place] [address] LABORATORYOrdered By: Jade Carlos on 10-12-2023 Blood Glucose Testing Reason Routine (10/12/23 9:00 PM) [facility] Work Phone: LABORATORYOrdered By: Patty Antoine on 10-12-2023 Blood Glucose Testing Reason Routine (10/12/23 4:35 PM) [facility] Work Phone: LABORATORYOrdered By: Lilli licea on 10-12-2023 Glucose [Mass/Vol] 117 mg/dL [facility] Work Phone: LABORATORYOrdered By: SYSTEM SYSTEM on 10-12-2023 Basophils (Bld) [#/Vol] 0.0 103/mcL Normal 0.0 - 0.3 10^3/mcL [facility] Workflow SS Basophils/100 WBC (Bld) 0.6 % Normal 0.0 - 2.5 % Workflow SS Calcium [Mass/Vol] 8.3 mg/dL Low 8.7 - 10. 4 mg/dL AH ADM SS Chloride [Moles/Vol] 108 mmol/L Normal 98 - 11 0 mEq/L AH ADM SS CO2 [Moles/Vol] 26 mmol/L Normal 22 - 32 mEq/L Chemistry S Creatinine [Mass/Vol] 1.07 mg/dL Normal 0.60 - 1.40 mg/dL ADM SS Electrolyte Balance 7.0 mEq/L Normal 4.0 - 15 .0 mEq/L Chemistry S Eosinophils (Bld) [#/Vol] 0.2 103/mcL Normal 0.0 - 0.7 10^3/mcL Workflow SS Eosinophils/100 WBC (Bld) 2.3 % Normal 0.0 - 6.0 % Workflow SS Erythrocyte distribution width (RBC) [Ratio] 17.3 % High 11.5 - 15.5 % Workflow SS GFR/1.73 sq M.predicted among blacks MDRD (S/P/Bld) [Vol rate/Area] ml/min/1.73sqm Invalid Interpretation Code Chemistry S Comment on above: Interpretive Data: GFR Population mean for , Non- Americans Ages 20-29 = 116 mL/min/1.73 sq.m. Ages 30-39 = 107 mL/min/1.73 sq.m. Ages 40-49 = 99 mL/min/1.73 sq.m. Ages 50-59 = 93 mL/min/1.73 sq.m. Ages 60-69 = 85 mL/min/1.73 sq.m. Ages 70+ = 75 mL/min/1.73 sq.m. Chronic Kidney Disease: Less than 60 mL/min/1.73 square meters End Stage Renal Disease: Less than 15 mL/min/1.73 square meters GFR/1.73 sq M.predicted among non-blacks MDRD (S/P/Bld) [Vol rate/Area] ml/min/1.73sqm Invalid Interpretation Code Tech urSelf Chemistry S Comment on above: Interpretive Data: GFR Population mean for , Non- Americans Ages 20-29 = 116 mL/min/1.73 sq.m. Ages 30-39 = 107 mL/min/1.73 sq.m. Ages 40-49 = 99 mL/min/1.73 sq.m. Ages 50-59 = 93 mL/min/1.73 sq.m. Ages 60-69 = 85 mL/min/1.73 sq.m. Ages 70+ = 75 mL/min/1.73 sq.m. Chronic Kidney Disease: Less than 60 mL/min/1.73 square meters End Stage Renal Disease: Less than 15 mL/min/1.73 square meters Glucose [Mass/Vol] 118 mg/dL High 82 - 115 mg/dL ADM SS Hematocrit (Bld) [Volume fraction] 23.1 % Low 40.0 - 52.0 % AH Workflow SS Hemoglobin (Bld) [Mass/Vol] 7.6 G/dL Low 13.0 - 17.5 G/dL [facility] Workflow SS Lymphocytes (Bld) [#/Vol] 0.9 103/mcL Normal 0.9 - 4.3 10^3/mcL [facility] Workflow SS Lymphocytes/100 WBC (Bld) 10.2 % Low 20.0 - 40.0 % AH Workflow SS Magnesium [Mass/Vol] 2.3 mg/dL Normal 1.6 - 2 .4 mg/dL AH ADM SS MCH (RBC) [Entitic mass] 28.6 pg Normal 27.0 - 33.0 pg AH Workflow SS MCHC 32.8 G/dL Normal 32.0 - 36.0 G/dL AH Workflow SS MCV (RBC) [Entitic vol] 87.1 fL Normal 81.0 - 100.0 fL [facility] Workflow SS Monocytes (Bld) [#/Vol] 1.2 103/mcL Normal 0.1 - 1.4 10^3/mcL [facility] Workflow SS Monocytes/100 WBC (Bld) 14.1 % High 2.0 - 13.0 % AH Workflow SS Neutrophils (Bld) [#/Vol] 6.2 103/mcL Normal 2.3 - 8.1 10^3/mcL AH Workflow SS Neutrophils/100 WBC (Bld) 72.8 % Normal 50.0 - 75.0 % AH Workflow SS Platelet mean volume (Bld) [Entitic vol] 9.0 fL Normal 6.4 - 10.5 fL AH Workflow SS Platelets (Bld) [#/Vol] 316 103/mcL Normal 150 - 450 10^3/mcL AH Workflow SS Potassium [Moles/Vol] 5.2 mmol/L High 3.5 - 5.0 mEq/L AH ADM SS RBC (Bld) [#/Vol] 2.65 106/mcL Low 4.50 - 6.0 0 10^6/mcL AH Workflow SS Sodium [Moles/Vol] 141 mmol/L Normal 136 - 145 mEq/L AH ADM SS Urea nitrogen [Mass/Vol] 35.0 mg/dL High 8.0 - 22.0 mg/dL AH ADM SS Urea nitrogen/Creatinine [Mass ratio] 32.7 ratio High 10.0 - 22.0 ratio AH ADM SS WBC (Bld) [#/Vol] 8.5 103/mcL Normal 4.5 - 10.8 10^3/mcL AH Workflow SS MGon 10-12-2023 Magnesium [Mass/Vol] 2.3 mg/dL Normal 1.6-2.4 [facility] ([place]) Comment on above: Performed By: #### C BC, ADIFF, ANEU, BMP, GFR #### Denise [address] [address] .Auto Diffon 10-11-2023 Basophil, Absolute 0.0 10 3/mcL Normal 0.0-0.3 [facility] ([place]) Comment on above: Performed By: #### A BSMERISSA, ABOGEL #### [address] [address] Basophils/100 WBC (Bld) 0.5 % Normal 0.0-2.5 A [facility] ([place]) Comment on above: Performed By: #### A BSGEL, ABOGEL #### [address] [address] Eosinophil, Absolute 0.2 10 3/mcL Normal 0.0-0.7 [facility] ([place]) Comment on above: Performed By: #### A BSGEL, ABOGEL #### [address] [address] Eosinophils/100 WBC (Bld) 2.5 % Normal 0.0-6.0 [facility] ([place]) Comment on above: Performed By: #### A BSGEL, ABOGEL #### [address] [address] Lymphocyte, Absolute 0.9 10 3/mcL Normal 0.9-4.3 [facility] ([place]) Comment on above: Performed By: #### A BSGEL, ABOGEL #### [address] [address] Lymphocytes/100 WBC (Bld) 10.8 % Low 20.0-40.0 [facility] ([place] Comment on above: Performed By: #### A BSGEL, ABOGEL #### [address] [address] Monocyte, Absolute 1.0 10 3/mcL Normal 0.1-1.4 [facility] ([place]) Comment on above: Performed By: #### A ALEXANDER RUTHERFORD #### [address] [address] Monocytes/100 WBC (Bld) 12.3 % Normal 2.0-13.0 A [facility] ([place]) Comment on above: Performed By: #### A ALEXANDER RUTHERFORD #### [address] [address] Neutrophils/100 WBC (Bld) 73.9 % Normal 50.0-75.0 [facility] ([place]) Comment on above: Performed By: #### A ALEXANDER RUTHERFORD #### [address] [address] .GFRon 10-11-2023 GFR >60 Normal [facility] ([place]) Comment on above: Result Comment: GFR Population mean for , Non- Americans Ages 20-29 = 116 mL/min/1.73 sq.m. Ages 30-39 = 107 mL/min/1.73 sq.m. Ages 40-49 = 99 mL/min/1.73 sq.m. Ages 50-59 = 93 mL/min/1.73 sq.m. Ages 60-69 = 85 mL/min/1.73 sq.m. Ages 70+ = 75 mL/min/1.73 sq.m. Chronic Kidney Disease: Less than 60 mL/min/1.73 square meters End Stage Renal Disease: Less than 15 mL/min/1.73 square meters Performed By: #### A RUBIO RUTHERFORDGEL #### [address] [address] GFR Non- 60 ml/min/1.73sqm Normal [facility] ([place]) Comment on above: Result Comment: GFR Population mean for , Non- Americans Ages 20-29 = 116 mL/min/1.73 sq.m. Ages 30-39 = 107 mL/min/1.73 sq.m. Ages 40-49 = 99 mL/min/1.73 sq.m. Ages 50-59 = 93 mL/min/1.73 sq.m. Ages 60-69 = 85 mL/min/1.73 sq.m. Ages 70+ = 75 mL/min/1.73 sq.m. Chronic Kidney Disease: Less than 60 mL/min/1.73 square meters End Stage Renal Disease: Less than 15 mL/min/1.73 square meters Performed By: #### A ALEXANDER RUTHERFORD #### [address] [address] .NEUABSon 10-11-2023 Neutrophil, Absolute 6.0 10 3/mcL Normal 2.3-8.1 [facility] ([place]) Comment on above: Performed By: #### A ALEXANDER RUTHERFORD #### [address] [address] BMPon 10-11-2023 BUN/Creatinine Ratio 30.6 ratio High 10.0-22.0 [facility] ([place]) Comment on above: Performed By: #### A ALEXANDER RUTHERFORD #### [address] [address] Calcium [Mass/Vol] 8.5 mg/dL Low 8.7-10.4 [facility] ([place]) Comment on above: Performed By: #### A ALEXANDER RUTHERFORD #### [address] [address] Chloride [Moles/Vol] 107 mmol/L Normal 98-110 [facility] ([place] Comment on above: Performed By: #### A ALEXANDER RUTHERFORD #### [address] [address] CO2 [Moles/Vol] 31 mmol/L Normal 22-32 [facility] ([place]) Comment on above: Performed By: #### A RUBIO RUTHERFORDGEL #### [address] [address] Creatinine [Mass/Vol] 1.21 mg/dL Normal 0.60-1.40 [facility] ([place]) Comment on above: Performed By: #### A ALEXANDER RUTHERFORD #### [address] [address] Electrolyte Balance 2.0 mEq/L Low 4.0-15.0 [facility] ([place]) Comment on above: Performed By: #### A RUBIO RUTHERFORDGEL #### [address] [address] Glucose [Mass/Vol] 111 mg/dL Normal 82-115 [facility] ([place]) Comment on above: Performed By: #### A RUBIO RUTHERFORDGEL #### [address] [address] Potassium [Moles/Vol] 4.9 mmol/L Normal 3.5-5.0 [facility] ([place] Comment on above: Performed By: #### A RUBIO RUTHERFORDGEL #### [address] [address] Sodium [Moles/Vol] 140 mmol/L Normal 136-145 [facility] ([place] Comment on above: Performed By: #### A RUBIO RUTHERFODRGEL #### [address] [address] Urea nitrogen [Mass/Vol] 37.0 mg/dL High 8.0-22.0 [facility] ([place] Comment on above: Performed By: #### A RUBIO RUTHERFORDGEL #### [address] [address] CBCon 10-11-2023 Erythrocyte distribution width (RBC) [Ratio] 17.2 % High 11.5-15.5 [facility] ([place] Comment on above: Performed By: #### A RUBIO RUTHERFORDGEL #### [address] [address] Hematocrit (Bld) [Volume fraction] 22.8 % Low 40.0-52.0 [facility] ([place] Comment on above: Performed By: #### A RUBIO RUTHERFORDGEL #### [address] [address] Hgb 7.5 G/dL Low 13.0-17.5 [facility] ([place] Comment on above: Performed By: #### A KRISH ABOGEL #### [address] [address] MCH (RBC) [Entitic mass] 28.9 pg Normal 27.0-33.0 [facility] ([place] Comment on above: Performed By: #### A ALEXANDER RUTHERFORD #### [place] [address] MCHC 33.0 G/dL Normal 32.0-36.0 [facility] ([place] Comment on above: Performed By: #### A ALEXANDER RUTHERFORD #### [place] [address] MCV (RBC) [Entitic vol] 87.8 fL Normal 81.0-100.0 A [facility] ([place] Comment on above: Performed By: #### A ALEXANDER RUTHERFORD #### [place] [address] Platelet 268 10 3/mcL Normal 150-450 [facility] ([place] Comment on above: Performed By: #### A ALEXANDER RUTHERFORD #### [place] [address] Platelet mean volume (Bld) [Entitic vol] 9.1 fL Normal 6.4-10.5 [facility] ([place] Comment on above: Performed By: #### A ALEXANDER RUTHERFORD #### [place] [address] RBC 2.59 10 6/mcL Low 4.50-6.00 [facility] ([place] Comment on above: Performed By: #### A ALEXANDER RUTHERFORD #### [place] [address] WBC 8.1 10 3/mcL Normal 4.5-10.8 [facility] ([place] Comment on above: Performed By: #### A RUBIO RUTHERFORDGEL #### [place] [address] LABORATORYOrdered By: SYSTEM SYSTEM on 10-11-2023 Basophils (Bld) [#/Vol] 0.0 103/mcL Normal 0.0 - 0.3 10^3/mcL AH Workflow SS Basophils/100 WBC (Bld) 0.5 % Normal 0.0 - 2.5 % AH Workflow SS Calcium [Mass/Vol] 8.5 mg/dL Low 8.7 - 10. 4 mg/dL ADM SS Chloride [Moles/Vol] 107 mmol/L Normal 98 - 11 0 mEq/L ADM SS CO2 [Moles/Vol] 31 mmol/L Normal 22 - 32 mEq/L ADM SS Creatinine [Mass/Vol] 1.21 mg/dL Normal 0.60 - 1.40 mg/dL ADM SS Electrolyte Balance 2.0 mEq/L Low 4.0 - 15 .0 mEq/L ADM SS Eosinophils (Bld) [#/Vol] 0.2 103/mcL Normal 0.0 - 0.7 10^3/mcL Workflow SS Eosinophils/100 WBC (Bld) 2.5 % Normal 0.0 - 6.0 % Workflow SS Erythrocyte distribution width (RBC) [Ratio] 17.2 % High 11.5 - 15.5 % Workflow SS GFR/1.73 sq M.predicted among blacks MDRD (S/P/Bld) [Vol rate/Area] ml/min/1.73sqm Invalid Interpretation Code Tech [employer] Chemistry S Comment on above: Interpretive Data: GFR Population mean for , Non- Americans Ages 20-29 = 116 mL/min/1.73 sq.m. Ages 30-39 = 107 mL/min/1.73 sq.m. Ages 40-49 = 99 mL/min/1.73 sq.m. Ages 50-59 = 93 mL/min/1.73 sq.m. Ages 60-69 = 85 mL/min/1.73 sq.m. Ages 70+ = 75 mL/min/1.73 sq.m. Chronic Kidney Disease: Less than 60 mL/min/1.73 square meters End Stage Renal Disease: Less than 15 mL/min/1.73 square meters GFR/1.73 sq M.predicted among non-blacks MDRD (S/P/Bld) [Vol rate/Area] 60 ml/min/1.73sqm Invalid Interpretation Code Tech [employer] Chemistry S Comment on above: Interpretive Data: GFR Population mean for , Non- Americans Ages 20-29 = 116 mL/min/1.73 sq.m. Ages 30-39 = 107 mL/min/1.73 sq.m. Ages 40-49 = 99 mL/min/1.73 sq.m. Ages 50-59 = 93 mL/min/1.73 sq.m. Ages 60-69 = 85 mL/min/1.73 sq.m. Ages 70+ = 75 mL/min/1.73 sq.m. Chronic Kidney Disease: Less than 60 mL/min/1.73 square meters End Stage Renal Disease: Less than 15 mL/min/1.73 square meters Glucose [Mass/Vol] 111 mg/dL Normal 82 - 115 mg/dL ADM SS Hematocrit (Bld) [Volume fraction] 22.8 % Low 40.0 - 52.0 % AH Workflow SS Hemoglobin (Bld) [Mass/Vol] 7.5 G/dL Low 13.0 - 17.5 G/dL AH Workflow SS Lymphocytes (Bld) [#/Vol] 0.9 103/mcL Normal 0.9 - 4.3 10^3/mcL AH Workflow SS Lymphocytes/100 WBC (Bld) 10.8 % Low 20.0 - 40.0 % AH Workflow SS MCH (RBC) [Entitic mass] 28.9 pg Normal 27.0 - 33.0 pg AH Workflow SS MCHC 33.0 G/dL Normal 32.0 - 36.0 G/dL AH Workflow SS MCV (RBC) [Entitic vol] 87.8 fL Normal 81.0 - 100.0 fL AH Workflow SS Monocytes (Bld) [#/Vol] 1.0 103/mcL Normal 0.1 - 1.4 10^3/mcL AH Workflow SS Monocytes/100 WBC (Bld) 12.3 % Normal 2.0 - 13.0 % AH Workflow SS Neutrophils (Bld) [#/Vol] 6.0 103/mcL Normal 2.3 - 8.1 10^3/mcL AH Workflow SS Neutrophils/100 WBC (Bld) 73.9 % Normal 50.0 - 75.0 % AH Workflow SS Platelet mean volume (Bld) [Entitic vol] 9.1 fL Normal 6.4 - 10.5 fL AH Workflow SS Platelets (Bld) [#/Vol] 268 103/mcL Normal 150 - 450 10^3/mcL AH Workflow SS Potassium [Moles/Vol] 4.9 mmol/L Normal 3.5 - 5.0 mEq/L ADM SS RBC (Bld) [#/Vol] 2.59 106/mcL Low 4.50 - 6.0 0 10^6/mcL AH Workflow SS Sodium [Moles/Vol] 140 mmol/L Normal 136 - 145 mEq/L AH ADM SS Urea nitrogen [Mass/Vol] 37.0 mg/dL High 8.0 - 22.0 mg/dL AH ADM SS Urea nitrogen/Creatinine [Mass ratio] 30.6 ratio High 10.0 - 22.0 ratio AH ADM SS WBC (Bld) [#/Vol] 8.1 103/mcL Normal 4.5 - 10.8 10^3/mcL Workflow SS .Auto Diffon 10-10-2023 Basophil, Absolute 0.0 10 3/mcL Normal 0.0-0.3 [facility] ([place] Comment on above: Performed By: #### C BC, ADIFF, ANEU, BMP, GFR #### [address] [address] Basophils/100 WBC (Bld) 0.3 % Normal 0.0-2.5 A [facility] ([place] Comment on above: Performed By: #### C BC, ADIFF, ANEU, BMP, GFR #### [address] [address] Eosinophil, Absolute 0.2 10 3/mcL Normal 0.0-0.7 [facility] ([place]) Comment on above: Performed By: #### C BC, ADIFF, ANEU, BMP, GFR #### [address] [address] Eosinophils/100 WBC (Bld) 2.1 % Normal 0.0-6.0 [facility] ([place] Comment on above: Performed By: #### C BC, ADIFF, ANEU, BMP, GFR #### [address] [address] Lymphocyte, Absolute 0.8 10 3/mcL Low 0.9-4.3 [facility] ([place] Comment on above: Performed By: #### C BC, ADIFF, ANEU, BMP, GFR #### [address] [address] Lymphocytes/100 WBC (Bld) 10.1 % Low 20.0-40.0 [facility] ([place] Comment on above: Performed By: #### C BC, ADIFF, ANEU, BMP, GFR #### [address] [address] Monocyte, Absolute 1.0 10 3/mcL Normal 0.1-1.4 [facility] ([place] Comment on above: Performed By: #### C BC, ADIFF, ANEU, BMP, GFR #### [address] [address] Monocytes/100 WBC (Bld) 12.6 % Normal 2.0-13.0 A [facility] ([place] Comment on above: Performed By: #### C BC, ADIFF, ANEU, BMP, GFR #### [address] [address] Neutrophils/100 WBC (Bld) 74.9 % Normal 50.0-75.0 [facility] ([place] Comment on above: Performed By: #### C BC, ADIFF, ANEU, BMP, GFR #### [address] [address] .GFRon 10-10-2023 GFR >60 Normal [facility] ([place] Comment on above: Result Comment: GFR Population mean for , Non- Americans Ages 20-29 = 116 mL/min/1.73 sq.m. Ages 30-39 = 107 mL/min/1.73 sq.m. Ages 40-49 = 99 mL/min/1.73 sq.m. Ages 50-59 = 93 mL/min/1.73 sq.m. Ages 60-69 = 85 mL/min/1.73 sq.m. Ages 70+ = 75 mL/min/1.73 sq.m. Chronic Kidney Disease: Less than 60 mL/min/1.73 square meters End Stage Renal Disease: Less than 15 mL/min/1.73 square meters Performed By: #### C BC, ADIFF, ANEU, BMP, GFR #### [address] [address] GFR Non- >60 Normal [facility] ([place] Comment on above: Result Comment: GFR Population mean for , Non- Americans Ages 20-29 = 116 mL/min/1.73 sq.m. Ages 30-39 = 107 mL/min/1.73 sq.m. Ages 40-49 = 99 mL/min/1.73 sq.m. Ages 50-59 = 93 mL/min/1.73 sq.m. Ages 60-69 = 85 mL/min/1.73 sq.m. Ages 70+ = 75 mL/min/1.73 sq.m. Chronic Kidney Disease: Less than 60 mL/min/1.73 square meters End Stage Renal Disease: Less than 15 mL/min/1.73 square meters Performed By: #### C BC, ADIFF, ANEU, BMP, GFR #### [place] [address] .Morphon 10-10-2023 Anisocytosis Ql (Bld) 1+ Normal [facility] ([place] Comment on above: Performed By: #### C BC, ADIFF, ANEU, BMP, GFR #### [place] [address] Ovalocytes 1+ Normal [facility] ([place] Comment on above: Performed By: #### C BC, ADIFF, ANEU, BMP, GFR #### [place] [address] Platelet Estimate Normal Normal [facility] ([place] Comment on above: Performed By: #### C BC, ADIFF, ANEU, BMP, GFR #### [place] [address] Poik 1+ Normal [facility] ([place] Comment on above: Performed By: #### C BC, ADIFF, ANEU, BMP, GFR #### [place] [address] Polychrom 1+ Normal [facility] ([place] Comment on above: Performed By: #### C BC, ADIFF, ANEU, BMP, GFR #### [place] [address] .NEUABSon 10-10-2023 Neutrophil, Absolute 5.6 10 3/mcL Normal 2.3-8.1 [facility] ([place]) Comment on above: Performed By: #### A ALEXANDER RUTHERFORD #### [address] [address] ABO/Rh (Gel)on 10-10-2023 ABO/Rh Interp Positive Invalid Interpretation Code [facility] ([place] Comment on above: Order Comment: Order ed by Discern Performed By: #### A ALEXANDER RUTHERFORD #### [address] [address] ABS (Gel)on 10-10-2023 ABSC Interp (Gel) Negative Normal [facility] ([place] Comment on above: Order Comment: Order ed by Discern Performed By: #### A ALEXANDER RUTHERFORD #### [address] [address] BMPon 10-10-2023 BUN/Creatinine Ratio 30.4 ratio High 10.0-22.0 [facility] ([place] Comment on above: Performed By: #### C BC, ADIFF, ANEU, BMP, GFR #### [address] [address] Calcium [Mass/Vol] 8.4 mg/dL Low 8.7-10.4 [facility] ([place] Comment on above: Performed By: #### C BC, ADIFF, ANEU, BMP, GFR #### [address] [address] Chloride [Moles/Vol] 106 mmol/L Normal 98-110 [facility] ([place] Comment on above: Performed By: #### C BC, ADIFF, ANEU, BMP, GFR #### [address] [address] CO2 [Moles/Vol] 28 mmol/L Normal 22-32 [facility] ([place] Comment on above: Performed By: #### C BC, ADIFF, ANEU, BMP, GFR #### [address] [address] Creatinine [Mass/Vol] 1.12 mg/dL Normal 0.60-1.40 [facility] ([place] Comment on above: Performed By: #### C BC, ADIFF, ANEU, BMP, GFR #### [address] [address] Electrolyte Balance 6.0 mEq/L Normal 4.0-15.0 [facility] ([place] Comment on above: Performed By: #### C BC, ADIFF, ANEU, BMP, GFR #### [address] [address] Glucose [Mass/Vol] 130 mg/dL High 82-115 [facility] ([place] Comment on above: Performed By: #### C BC, ADIFF, ANEU, BMP, GFR #### [address] [address] Potassium [Moles/Vol] 4.7 mmol/L Normal 3.5-5.0 [facility] ([place] Comment on above: Performed By: #### C BC, ADIFF, ANEU, BMP, GFR #### [address] [address] Sodium [Moles/Vol] 140 mmol/L Normal 136-145 [facility] ([place] Comment on above: Performed By: #### C BC, ADIFF, ANEU, BMP, GFR #### [address] [address] Urea nitrogen [Mass/Vol] 34.0 mg/dL High 8.0-22.0 [facility] ([place] Comment on above: Performed By: #### C BC, ADIFF, ANEU, BMP, GFR #### [address] [address] CBCon 10-10-2023 Erythrocyte distribution width (RBC) [Ratio] 17.5 % High 11.5-15.5 [facility] ([place] Comment on above: Performed By: #### C BC, ADIFF, ANEU, BMP, GFR #### [address] [address] Hematocrit (Bld) [Volume fraction] 21.1 % Low 40.0-52.0 [facility] ([place] Comment on above: Performed By: #### C BC, ADIFF, ANEU, BMP, GFR #### [address] [address] Hgb 6.9 G/dL Critically abnormal 13.0-17.5 [facility] ([place] Comment on above: Performed By: #### C BC, ADIFF, ANEU, BMP, GFR #### [address] [address] MCH (RBC) [Entitic mass] 28.6 pg Normal 27.0-33.0 [facility] ([place] Comment on above: Performed By: #### C BC, ADIFF, ANEU, BMP, GFR #### [place] [address] MCHC 32.8 G/dL Normal 32.0-36.0 [facility] ([place] Comment on above: Performed By: #### C BC, ADIFF, ANEU, BMP, GFR #### [address] [address] MCV (RBC) [Entitic vol] 87.2 fL Normal 81.0-100.0 A [facility] ([place] Comment on above: Performed By: #### C BC, ADIFF, ANEU, BMP, GFR #### [address] [address] Platelet 242 10 3/mcL Normal 150-450 [facility] ([place] Comment on above: Performed By: #### C BC, ADIFF, ANEU, BMP, GFR #### [address] [address] Platelet mean volume (Bld) [Entitic vol] 10.0 fL Normal 6.4-10.5 [facility] ([place] Comment on above: Performed By: #### C BC, ADIFF, ANEU, BMP, GFR #### [place] [id number] RBC 2.42 10 6/mcL Low 4.50-6.00 [facility] ([place] Comment on above: Performed By: #### C BC, ADIFF, ANEU, BMP, GFR #### [place] [address] [place], [place] [address] WBC 7.5 10 3/mcL Normal 4.5-10.8 [facility] ([place] Comment on above: Performed By: #### C BC, ADIFF, ANEU, BMP, GFR #### [place] [address] [place], [place] [address] on 10-10-2023 Hematocrit (Bld) [Volume fraction] 23.1 % Low 40.0-52.0 [facility] ([place] Comment on above: Performed By: #### H H ####[address] [address] Hgb 7.8 G/dL Low 13.0-17.5 [facility] ([place] Comment on above: Performed By: #### H H ####[address] [address] Hematocrit (Bld) [Volume fraction] 24.6 % Low 40.0-52.0 [facility] ([place] Comment on above: Performed By: #### A BSMERISSA, ABOGEL #### [address] [address] Hgb 8.3 G/dL Low 13.0-17.5 [facility] ([place] Comment on above: Performed By: #### A BSGEL, ABOGEL #### [address] [address] LABORATORYOrdered By: SYSTEM SYSTEM on 10-10-2023 Hematocrit (Bld) [Volume fraction] 23.1 % Low 40.0 - 52.0 % AH Workflow SS Hemoglobin (Bld) [Mass/Vol] 7.8 G/dL Low 13.0 - 17.5 G/dL AH Workflow SS Anisocytosis Ql (Bld) 1+ *NA* (10/10/23 3:36 AM) Invalid Interpretation Code AH Workflow SS Basophils (Bld) [#/Vol] 0.0 103/mcL Normal 0.0 - 0.3 10^3/mcL AH Workflow SS Basophils/100 WBC (Bld) 0.3 % Normal 0.0 - 2.5 % AH Workflow SS Calcium [Mass/Vol] 8.4 mg/dL Low 8.7 - 10. 4 mg/dL ADM SS Chloride [Moles/Vol] 106 mmol/L Normal 98 - 11 0 mEq/L ADM SS CO2 [Moles/Vol] 28 mmol/L Normal 22 - 32 mEq/L ADM SS Creatinine [Mass/Vol] 1.12 mg/dL Normal 0.60 - 1.40 mg/dL ADM SS Electrolyte Balance 6.0 mEq/L Normal 4.0 - 15 .0 mEq/L ADM SS Eosinophils (Bld) [#/Vol] 0.2 103/mcL Normal 0.0 - 0.7 10^3/mcL Workflow SS Eosinophils/100 WBC (Bld) 2.1 % Normal 0.0 - 6.0 % Workflow SS Erythrocyte distribution width (RBC) [Ratio] 17.5 % High 11.5 - 15.5 % Workflow SS GFR/1.73 sq M.predicted among blacks MDRD (S/P/Bld) [Vol rate/Area] ml/min/1.73sqm Invalid Interpretation Code Tech [employer] Chemistry S Comment on above: Interpretive Data: GFR Population mean for , Non- Americans Ages 20-29 = 116 mL/min/1.73 sq.m. Ages 30-39 = 107 mL/min/1.73 sq.m. Ages 40-49 = 99 mL/min/1.73 sq.m. Ages 50-59 = 93 mL/min/1.73 sq.m. Ages 60-69 = 85 mL/min/1.73 sq.m. Ages 70+ = 75 mL/min/1.73 sq.m. Chronic Kidney Disease: Less than 60 mL/min/1.73 square meters End Stage Renal Disease: Less than 15 mL/min/1.73 square meters GFR/1.73 sq M.predicted among non-blacks MDRD (S/P/Bld) [Vol rate/Area] ml/min/1.73sqm Invalid Interpretation Code Tech [employer] Chemistry S Comment on above: Interpretive Data: GFR Population mean for , Non- Americans Ages 20-29 = 116 mL/min/1.73 sq.m. Ages 30-39 = 107 mL/min/1.73 sq.m. Ages 40-49 = 99 mL/min/1.73 sq.m. Ages 50-59 = 93 mL/min/1.73 sq.m. Ages 60-69 = 85 mL/min/1.73 sq.m. Ages 70+ = 75 mL/min/1.73 sq.m. Chronic Kidney Disease: Less than 60 mL/min/1.73 square meters End Stage Renal Disease: Less than 15 mL/min/1.73 square meters Glucose [Mass/Vol] 130 mg/dL High 82 - 115 mg/dL AH ADM SS Lymphocytes (Bld) [#/Vol] 0.8 103/mcL Low 0.9 - 4.3 10^3/mcL AH Workflow SS Lymphocytes/100 WBC (Bld) 10.1 % Low 20.0 - 40.0 % AH Workflow SS MCH (RBC) [Entitic mass] 28.6 pg Normal 27.0 - 33.0 pg AH Workflow SS MCHC 32.8 G/dL Normal 32.0 - 36.0 G/dL AH Workflow SS MCV (RBC) [Entitic vol] 87.2 fL Normal 81.0 - 100.0 fL AH Workflow SS Monocytes (Bld) [#/Vol] 1.0 103/mcL Normal 0.1 - 1.4 10^3/mcL AH Workflow SS Monocytes/100 WBC (Bld) 12.6 % Normal 2.0 - 13.0 % AH Workflow SS Neutrophils (Bld) [#/Vol] 5.6 103/mcL Normal 2.3 - 8.1 10^3/mcL AH Workflow SS Neutrophils/100 WBC (Bld) 74.9 % Normal 50.0 - 75.0 % AH Workflow SS Ovalocytes LM Ql (Bld) 1+ *NA* (10/10/23 3:36 AM) Invalid Interpretation Code AH Workflow SS Platelet mean volume (Bld) [Entitic vol] 10.0 fL Normal 6.4 - 10.5 fL AH Workflow SS Platelets (Bld) [#/Vol] 242 103/mcL Normal 150 - 450 10^3/mcL AH Workflow SS Platelets LM Ql (Bld) Normal *NA* (10/10/23 3:36 AM) Invalid Interpretation Code AH Workflow SS Poikilocytosis LM Ql (Bld) 1+ *NA* (10/10/23 3:36 AM) Invalid Interpretation Code AH Workflow SS Polychromasia LM Ql (Bld) 1+ *NA* (10/10/23 3:36 AM) Invalid Interpretation Code AH Workflow SS Potassium [Moles/Vol] 4.7 mmol/L Normal 3.5 - 5.0 mEq/L AH ADM SS RBC (Bld) [#/Vol] 2.42 106/mcL Low 4.50 - 6.0 0 10^6/mcL AH Workflow SS Sodium [Moles/Vol] 140 mmol/L Normal 136 - 145 mEq/L AH ADM SS Urea nitrogen [Mass/Vol] 34.0 mg/dL High 8.0 - 22.0 mg/dL AH ADM SS Urea nitrogen/Creatinine [Mass ratio] 30.4 ratio High 10.0 - 22.0 ratio AH ADM SS WBC (Bld) [#/Vol] 7.5 103/mcL Normal 4.5 - 10.8 10^3/mcL AH Workflow SS LABORATORYOrdered By: Melony Conn on 10-10-2023 ABO and Rh group Nom (Bld) Blood group O Rh(D) positive Invalid Interpretation Code AH BB Auto SS Blood group antibody screen Ql Negative ABSC (10/10/23 6:15 AM) Normal BB Auto SS RBC Product Ready RBC Ready for Pickup (10/10/23 5:23 AM) Normal BB Manual SS RBC (Product)on 10-10-2023 RBC Product Ready RBC Ready for Pickup Normal [facility] ([place] Comment on above: Performed By: #### A BSGEL, ABOGEL #### [address] [address] .Auto Diffon 10-09-2023 Basophil, Absolute 0.1 10 3/mcL Normal 0.0-0.3 [facility] ([place]) Comment on above: Performed By: #### C BC, ADIFF, ANEU, BMP, GFR #### [address] [address] Basophils/100 WBC (Bld) 0.6 % Normal 0.0-2.5 A [facility] ([place] Comment on above: Performed By: #### C BC, ADIFF, ANEU, BMP, GFR #### [address] [address] Eosinophil, Absolute 0.2 10 3/mcL Normal 0.0-0.7 [facility] ([place]) Comment on above: Performed By: #### C BC, ADIFF, ANEU, BMP, GFR #### [address] [address] Eosinophils/100 WBC (Bld) 2.2 % Normal 0.0-6.0 [facility] ([place] Comment on above: Performed By: #### C BC, ADIFF, ANEU, BMP, GFR #### [address] [address] Lymphocyte, Absolute 0.8 10 3/mcL Low 0.9-4.3 [facility] ([place] Comment on above: Performed By: #### C BC, ADIFF, ANEU, BMP, GFR #### [address] [address] Lymphocytes/100 WBC (Bld) 9.8 % Low 20.0-40.0 [facility] ([place] Comment on above: Performed By: #### C BC, ADIFF, ANEU, BMP, GFR #### [address] [address] Monocyte, Absolute 1.1 10 3/mcL Normal 0.1-1.4 [facility] ([place] Comment on above: Performed By: #### C BC, ADIFF, ANEU, BMP, GFR #### [address] [address] Monocytes/100 WBC (Bld) 12.7 % Normal 2.0-13.0 Counts include 234 beds at the [facility] ([place]) Comment on above: Performed By: #### C BC, ADIFF, ANEU, BMP, GFR #### [address] [address] Neutrophils/100 WBC (Bld) 74.7 % Normal 50.0-75.0 [facility] ([place] Comment on above: Performed By: #### C BC, ADIFF, ANEU, BMP, GFR #### [address] [address] .GFRon 10-09-2023 GFR >60 Normal [facility] ([place] Comment on above: Result Comment: GFR Population mean for , Non- Americans Ages 20-29 = 116 mL/min/1.73 sq.m. Ages 30-39 = 107 mL/min/1.73 sq.m. Ages 40-49 = 99 mL/min/1.73 sq.m. Ages 50-59 = 93 mL/min/1.73 sq.m. Ages 60-69 = 85 mL/min/1.73 sq.m. Ages 70+ = 75 mL/min/1.73 sq.m. Chronic Kidney Disease: Less than 60 mL/min/1.73 square meters End Stage Renal Disease: Less than 15 mL/min/1.73 square meters Performed By: #### C BC, ADIFF, ANEU, BMP, GFR #### [address] [address] GFR Non- >60 Normal [facility] ([place] Comment on above: Result Comment: GFR Population mean for , Non- Americans Ages 20-29 = 116 mL/min/1.73 sq.m. Ages 30-39 = 107 mL/min/1.73 sq.m. Ages 40-49 = 99 mL/min/1.73 sq.m. Ages 50-59 = 93 mL/min/1.73 sq.m. Ages 60-69 = 85 mL/min/1.73 sq.m. Ages 70+ = 75 mL/min/1.73 sq.m. Chronic Kidney Disease: Less than 60 mL/min/1.73 square meters End Stage Renal Disease: Less than 15 mL/min/1.73 square meters Performed By: #### C BC, ADIFF, ANEU, BMP, GFR #### [address] [address] .NEUABSon 10-09-2023 Neutrophil, Absolute 6.2 10 3/mcL Normal 2.3-8.1 [facility] ([place]) Comment on above: Performed By: #### C BC, ADIFF, ANEU, BMP, GFR #### [address] [address] BMPon 10-09-2023 BUN/Creatinine Ratio 26.6 ratio High 10.0-22.0 [facility] ([place]) Comment on above: Performed By: #### C BC, ADIFF, ANEU, BMP, GFR #### [address] [id number] Calcium [Mass/Vol] 8.2 mg/dL Low 8.7-10.4 [facility] ([place]) Comment on above: Performed By: #### C BC, ADIFF, ANEU, BMP, GFR #### [address] [address] Chloride [Moles/Vol] 107 mmol/L Normal 98-110 [facility] ([place]) Comment on above: Performed By: #### C BC, ADIFF, ANEU, BMP, GFR #### [address] [address] CO2 [Moles/Vol] 31 mmol/L Normal 22-32 [facility] ([place]) Comment on above: Performed By: #### C BC, ADIFF, ANEU, BMP, GFR #### [address] [id number] Creatinine [Mass/Vol] 1.09 mg/dL Normal 0.60-1.40 [facility] ([place]) Comment on above: Performed By: #### C BC, ADIFF, ANEU, BMP, GFR #### [address] [address] Electrolyte Balance 4.0 mEq/L Normal 4.0-15.0 [facility] ([place]) Comment on above: Performed By: #### C BC, ADIFF, ANEU, BMP, GFR #### [address] [address] Glucose [Mass/Vol] 121 mg/dL High 82-115 [facility] ([place] Comment on above: Performed By: #### C BC, ADIFF, ANEU, BMP, GFR #### [address] [address] Potassium [Moles/Vol] 4.7 mmol/L Normal 3.5-5.0 [facility], [facility] ([place]) Comment on above: Performed By: #### C BC, ADIFF, ANEU, BMP, GFR #### [address] [address] Sodium [Moles/Vol] 142 mmol/L Normal 136-145 [facility] ([place] Comment on above: Performed By: #### C BC, ADIFF, ANEU, BMP, GFR #### [place] [address] Urea nitrogen [Mass/Vol] 29.0 mg/dL High 8.0-22.0 [facility] ([place]) Comment on above: Performed By: #### C BC, ADIFF, ANEU, BMP, GFR #### [place] [address] CBCon 10-09-2023 Erythrocyte distribution width (RBC) [Ratio] 17.2 % High 11.5-15.5 [facility] ([place] Comment on above: Performed By: #### C BC, ADIFF, ANEU, BMP, GFR #### [place] [address] Hematocrit (Bld) [Volume fraction] 21.7 % Low 40.0-52.0 [facility] ([place] Comment on above: Performed By: #### C BC, ADIFF, ANEU, BMP, GFR #### [place] [address] Hgb 7.3 G/dL Low 13.0-17.5 [facility] ([place] Comment on above: Performed By: #### C BC, ADIFF, ANEU, BMP, GFR #### [address] [address] MCH (RBC) [Entitic mass] 29.1 pg Normal 27.0-33.0 [facility] ([place] Comment on above: Performed By: #### C BC, ADIFF, ANEU, BMP, GFR #### [place] [address] MCHC 33.6 G/dL Normal 32.0-36.0 [facility] ([place] Comment on above: Performed By: #### C BC, ADIFF, ANEU, BMP, GFR #### [address] [address] MCV (RBC) [Entitic vol] 86.8 fL Normal 81.0-100.0 A [facility] ([place] Comment on above: Performed By: #### C BC, ADIFF, ANEU, BMP, GFR #### [address] [address] Platelet 215 10 3/mcL Normal 150-450 [facility] ([place] Comment on above: Performed By: #### C BC, ADIFF, ANEU, BMP, GFR #### [address] [address] Platelet mean volume (Bld) [Entitic vol] 9.9 fL Normal 6.4-10.5 [facility] ([place] Comment on above: Performed By: #### C BC, ADIFF, ANEU, BMP, GFR #### [address] [address] RBC 2.50 10 6/mcL Low 4.50-6.00 [facility] ([place] Comment on above: Performed By: #### C BC, ADIFF, ANEU, BMP, GFR #### [address] [address] WBC 8.3 10 3/mcL Normal 4.5-10.8 [facility] ([place] Comment on above: Performed By: #### C BC, ADIFF, ANEU, BMP, GFR #### [address] [address] .Auto Diffon 10-08-2023 Basophil, Absolute 0.1 10 3/mcL Normal 0.0-0.3 [facility] ([place]) Comment on above: Performed By: #### C BC, BMP, HFP, MG, GFR, MORPH, ADIFF, ANEU ####[address] [address] Basophils/100 WBC (Bld) 0.9 % Normal 0.0-2.5 A [facility] ([place] Comment on above: Performed By: #### C BC, BMP, HFP, MG, GFR, MORPH, ADIFF, ANEU ####[address] [address] Eosinophil, Absolute 0.2 10 3/mcL Normal 0.0-0.7 [facility] ([place]) Comment on above: Performed By: #### C BC, BMP, HFP, MG, GFR, MORPH, ADIFF, ANEU ####[address] [address] Eosinophils/100 WBC (Bld) 2.1 % Normal 0.0-6.0 [facility] ([place] Comment on above: Performed By: #### C BC, BMP, HFP, MG, GFR, MORPH, ADIFF, ANEU ####[address] [address] Lymphocyte, Absolute 0.9 10 3/mcL Normal 0.9-4.3 [facility] ([place]) Comment on above: Performed By: #### C BC, BMP, HFP, MG, GFR, MORPH, ADIFF, ANEU ####[address] [address] Lymphocytes/100 WBC (Bld) 9.4 % Low 20.0-40.0 [facility] ([place] Comment on above: Performed By: #### C BC, BMP, HFP, MG, GFR, MORPH, ADIFF, ANEU ####[address] [address] Monocyte, Absolute 1.4 10 3/mcL Normal 0.1-1.4 [facility] ([place] Comment on above: Performed By: #### C BC, BMP, HFP, MG, GFR, MORPH, ADIFF, ANEU ####[address] [address] Monocytes/100 WBC (Bld) 15.0 % High 2.0-13.0 Counts include 234 beds at the [facility] ([place]) Comment on above: Performed By: #### C BC, BMP, HFP, MG, GFR, MORPH, ADIFF, ANEU ####[address] [address] Neutrophils/100 WBC (Bld) 72.6 % Normal 50.0-75.0 [facility] ([place] Comment on above: Performed By: #### C BC, BMP, HFP, MG, GFR, MORPH, ADIFF, ANEU ####[address] [address] .GFRon 10-08-2023 GFR Non- >60 Normal [facility] ([place] Comment on above: Result Comment: GFR Population mean for , Non- Americans Ages 20-29 = 116 mL/min/1.73 sq.m. Ages 30-39 = 107 mL/min/1.73 sq.m. Ages 40-49 = 99 mL/min/1.73 sq.m. Ages 50-59 = 93 mL/min/1.73 sq.m. Ages 60-69 = 85 mL/min/1.73 sq.m. Ages 70+ = 75 mL/min/1.73 sq.m. Chronic Kidney Disease: Less than 60 mL/min/1.73 square meters End Stage Renal Disease: Less than 15 mL/min/1.73 square meters Performed By: #### C BC, BMP, HFP, MG, GFR, MORPH, ADIFF, ANEU ####[address] [address] GFR >60 Normal [facility] ([place] Comment on above: Result Comment: GFR Population mean for , Non- Americans Ages 20-29 = 116 mL/min/1.73 sq.m. Ages 30-39 = 107 mL/min/1.73 sq.m. Ages 40-49 = 99 mL/min/1.73 sq.m. Ages 50-59 = 93 mL/min/1.73 sq.m. Ages 60-69 = 85 mL/min/1.73 sq.m. Ages 70+ = 75 mL/min/1.73 sq.m. Chronic Kidney Disease: Less than 60 mL/min/1.73 square meters End Stage Renal Disease: Less than 15 mL/min/1.73 square meters Performed By: #### C BC, BMP, HFP, MG, GFR, MORPH, ADIFF, ANEU ####[address] [address] .Morphon 10-08-2023 Anisocytosis Ql (Bld) 1+ Normal [facility] ([place]) Comment on above: Performed By: #### C BC, BMP, HFP, MG, GFR, MORPH, ADIFF, ANEU ####[address] [address] Platelet Estimate Normal Normal [facility] ([place] Comment on above: Performed By: #### C BC, BMP, HFP, MG, GFR, MORPH, ADIFF, ANEU ####[place] [address] .NEUABSon 10-08-2023 Neutrophil, Absolute 6.9 10 3/mcL Normal 2.3-8.1 [facility] ([place]) Comment on above: Performed By: #### C BC, BMP, HFP, MG, GFR, MORPH, ADIFF, ANEU ####[place] [address] BMPon 10-08-2023 BUN/Creatinine Ratio 24.1 ratio High 10.0-22.0 [facility] ([place] Comment on above: Performed By: #### C BC, BMP, HFP, MG, GFR, MORPH, ADIFF, ANEU ####[place] [address] Calcium [Mass/Vol] 8.5 mg/dL Low 8.7-10.4 [facility] ([place] Comment on above: Performed By: #### C BC, BMP, HFP, MG, GFR, MORPH, ADIFF, ANEU ####[address] [address] Chloride [Moles/Vol] 108 mmol/L Normal 98-110 [facility] ([place] Comment on above: Performed By: #### C BC, BMP, HFP, MG, GFR, MORPH, ADIFF, ANEU ####[place] [address] CO2 [Moles/Vol] 27 mmol/L Normal 22-32 [facility] ([place] Comment on above: Performed By: #### C BC, BMP, HFP, MG, GFR, MORPH, ADIFF, ANEU ####[address] [place], [place] [address] Creatinine [Mass/Vol] 1.12 mg/dL Normal 0.60-1.40 [facility] ([place] Comment on above: Performed By: #### C BC, BMP, HFP, MG, GFR, MORPH, ADIFF, ANEU ####[address] [address] Electrolyte Balance 6.0 mEq/L Normal 4.0-15.0 [facility] ([place]) Comment on above: Performed By: #### C BC, BMP, HFP, MG, GFR, MORPH, ADIFF, ANEU ####[address] [address] Glucose [Mass/Vol] 136 mg/dL High 82-115 [facility] ([place] Comment on above: Performed By: #### C BC, BMP, HFP, MG, GFR, MORPH, ADIFF, ANEU ####[address] [address] Potassium [Moles/Vol] 5.5 mmol/L High 3.5-5.0 [facility] ([place] Comment on above: Performed By: #### C BC, BMP, HFP, MG, GFR, MORPH, ADIFF, ANEU ####[address] [address] Sodium [Moles/Vol] 141 mmol/L Normal 136-145 [facility] ([place] Comment on above: Performed By: #### C BC, BMP, HFP, MG, GFR, MORPH, ADIFF, ANEU ####[address] [address] Urea nitrogen [Mass/Vol] 27.0 mg/dL High 8.0-22.0 [facility] ([place] Comment on above: Performed By: #### C BC, BMP, HFP, MG, GFR, MORPH, ADIFF, ANEU ####[address] [address] CBCon 10-08-2023 Erythrocyte distribution width (RBC) [Ratio] 17.0 % High 11.5-15.5 [facility] ([place] Comment on above: Performed By: #### C BC, BMP, HFP, MG, GFR, MORPH, ADIFF, ANEU ####[place] [address] Hematocrit (Bld) [Volume fraction] 22.5 % Low 40.0-52.0 [facility] ([place] Comment on above: Performed By: #### C BC, BMP, HFP, MG, GFR, MORPH, ADIFF, ANEU ####[place] [address] Hgb 7.5 G/dL Low 13.0-17.5 [facility] ([place] Comment on above: Performed By: #### C BC, BMP, HFP, MG, GFR, MORPH, ADIFF, ANEU ####[place] [address] MCH (RBC) [Entitic mass] 28.8 pg Normal 27.0-33.0 [facility] ([place] Comment on above: Performed By: #### C BC, BMP, HFP, MG, GFR, MORPH, ADIFF, ANEU ####[place] [address] MCHC 33.3 G/dL Normal 32.0-36.0 [facility] ([place] Comment on above: Performed By: #### C BC, BMP, HFP, MG, GFR, MORPH, ADIFF, ANEU ####[place] [address] MCV (RBC) [Entitic vol] 86.4 fL Normal 81.0-100.0 A [facility] ([place] Comment on above: Performed By: #### C BC, BMP, HFP, MG, GFR, MORPH, ADIFF, ANEU ####[place] [address] Platelet 184 10 3/mcL Normal 150-450 [facility] ([place] Comment on above: Performed By: #### C BC, BMP, HFP, MG, GFR, MORPH, ADIFF, ANEU ####[place] [address] Platelet mean volume (Bld) [Entitic vol] 10.9 fL High 6.4-10.5 [facility] ([place] Comment on above: Performed By: #### C BC, BMP, HFP, MG, GFR, MORPH, ADIFF, ANEU ####[place] [id number] RBC 2.61 10 6/mcL Low 4.50-6.00 [facility] ([place] Comment on above: Performed By: #### C BC, BMP, HFP, MG, GFR, MORPH, ADIFF, ANEU ####[place] [address] WBC 9.5 10 3/mcL Normal 4.5-10.8 [facility] ([place] Comment on above: Performed By: #### C BC, BMP, HFP, MG, GFR, MORPH, ADIFF, ANEU ####[place] [address] HFPon 10-08-2023 Bili Indirect 0.4 mg/dL Normal 0.1-10.0 [facility] ([place] Comment on above: Performed By: #### C BC, BMP, HFP, MG, GFR, MORPH, ADIFF, ANEU ####[place] [address] Albumin Level 2.0 G/dL Low 3.2-4.8 [facility] ([place] Comment on above: Performed By: #### C BC, BMP, HFP, MG, GFR, MORPH, ADIFF, ANEU ####[place] [address] Albumin/Globulin [Mass ratio] 0.6 {ratio} Low 0.9-1.6 [facility] ([place] Comment on above: Performed By: #### C BC, BMP, HFP, MG, GFR, MORPH, ADIFF, ANEU ####[place] [address] ALP [Catalytic activity/Vol] 63 U/L Normal 38-126 [facility] ([place] Comment on above: Performed By: #### C BC, BMP, HFP, MG, GFR, MORPH, ADIFF, ANEU ####[place] [address] ALT [Catalytic activity/Vol] 23 U/L Normal 12-55 [facility] ([place] Comment on above: Performed By: #### C BC, BMP, HFP, MG, GFR, MORPH, ADIFF, ANEU ####[place] [address] AST [Catalytic activity/Vol] 32 U/L Normal 8-34 [facility] ([place] Comment on above: Performed By: #### C BC, BMP, HFP, MG, GFR, MORPH, ADIFF, ANEU ####[place] [address] Bili Direct 0.3 mg/dL Normal 0.0-0.4 [facility] ([place] Comment on above: Result Comment: Use of this assay is not recommended for patients undergoing treatment with eltrombopag due to the potential for falsely elevated results. Performed By: #### C BC, BMP, HFP, MG, GFR, MORPH, ADIFF, ANEU ####[place] [address] Bili Total 0.70 mg/dL Normal 0.20-1.20 [facility] ([place] Comment on above: Result Comment: Use of this assay is not recommended for patients undergoing treatment with eltrombopag due to the potential for falsely elevated results. Performed By: #### C BC, BMP, HFP, MG, GFR, MORPH, ADIFF, ANEU ####[place] [address] Globulin 3.1 G/dL Normal 1.5-3.8 [facility] ([place] Comment on above: Performed By: #### C BC, BMP, HFP, MG, GFR, MORPH, ADIFF, ANEU ####[place] [address] Total Protein 5.1 G/dL Low 5.7-8.2 [facility] ([place] Comment on above: Result Comment: No te - New Reference Range in effect 20 Performed By: #### C BC, BMP, HFP, MG, GFR, MORPH, ADIFF, ANEU ####[place] [address] HHon 10-08-2023 Hematocrit (Bld) [Volume fraction] 22.7 % Low 40.0-52.0 [facility] ([place] Comment on above: Performed By: #### A KRISH, ABOGEL #### [place] [address] Hgb 7.4 G/dL Low 13.0-17.5 [facility] ([place] Comment on above: Performed By: #### A BSMERISSA, ABOGEL #### [place] [address] Hematocrit (Bld) [Volume fraction] 21.2 % Low 40.0-52.0 [facility] ([place] Comment on above: Performed By: #### H H ####[place] [address] Hgb 7.2 G/dL Low 13.0-17.5 [facility] ([place] Comment on above: Performed By: #### H H ####[place] [address] Hematocrit (Bld) [Volume fraction] 21.7 % Low 40.0-52.0 [facility] ([place] Comment on above: Performed By: #### A KRISH, ABOGEL #### [place] [address] Hgb 7.1 G/dL Low 13.0-17.5 [facility] ([place] Comment on above: Performed By: #### A KRISH, ABOGEL #### [place] [address] Marco 10-08-2023 Potassium [Moles/Vol] 4.9 mmol/L Normal 3.5-5.0 [facility] ([place] Comment on above: Performed By: #### K ####[place] [address] LABORATORYOrdered By: SYSTEM SYSTEM on 10-08-2023 Anisocytosis Ql (Bld) 1+ *NA* (10/08/23 5:37 AM) Invalid Interpretation Code AH Workflow SS Platelets LM Ql (Bld) Normal *NA* (10/08/23 5:37 AM) Invalid Interpretation Code AH Workflow SS Albumin BCP dye [Mass/Vol] 2.0 G/dL Low 3.2 - 4.8 G/dL ADM SS Albumin/Globulin [Mass ratio] 0.6 {ratio} Low 0.9 - 1.6 ratio ADM SS ALP [Catalytic activity/Vol] 63 U/L Normal 38 - 126 U/L ADM SS ALT No additional P-5'-P [Catalytic activity/Vol] 23 U/L Normal 12 - 55 U/L AH ADM SS AST [Catalytic activity/Vol] 32 U/L Normal 8 - 34 U/L ADM SS Bili Indirect 0.4 mg/dL Normal 0.1 - 10.0 mg/dL Chemistry S Bilirubin [Mass/Vol] 0.70 mg/dL Normal 0.20 - 1.20 mg/dL ADM SS Comment on above: Interpretive Data: U se of this assay is not recommended for patients undergoing treatment with eltrombopag due to the potential for falsely elevated results. Bilirubin.conjugated [Mass/Vol] 0.3 mg/dL Normal 0.0 - 0.4 mg/dL ADM SS Comment on above: Interpretive Data: U se of this assay is not recommended for patients undergoing treatment with eltrombopag due to the potential for falsely elevated results. Globulin 3.1 G/dL Normal 1.5 - 3.8 G/dL ADM SS Magnesium [Mass/Vol] 2.2 mg/dL Normal 1.6 - 2 .4 mg/dL ADM SS Protein [Mass/Vol] 5.1 G/dL Low 5.7 - 8.2 G/dL ADM SS Comment on above: Interpretive Data: * *Note - New Reference Range in effect 20 MGon 10-08-2023 Magnesium [Mass/Vol] 2.2 mg/dL Normal 1.6-2.4 [facility] ([place] Comment on above: Performed By: #### C BC, BMP, HFP, MG, GFR, MORPH, ADIFF, ANEU ####[place] [address] .Auto Diffon 10-07-2023 Basophil, Absolute 0.0 10 3/mcL Normal 0.0-0.2 [facility] ([place] Comment on above: Performed By: #### B MP, MG, GFR, CBC, ADIFF, ANEU ####[address] [place], [place] [address] Basophils/100 WBC (Bld) 0.4 % Normal 0.0-2.5 A [facility] ([place] Comment on above: Performed By: #### B MP, MG, GFR, CBC, ADIFF, ANEU ####[address] [place], [place] [address] Eosinophil, Absolute 0.1 10 3/mcL Normal 0.0-0.4 [facility] ([place]) Comment on above: Performed By: #### B MP, MG, GFR, CBC, ADIFF, ANEU ####[address] [place], [place] [address] Eosinophils/100 WBC (Bld) 1.1 % Normal 0.0-7.0 [facility] ([place] Comment on above: Performed By: #### B MP, MG, GFR, CBC, ADIFF, ANEU ####[address] [place], [place] [address] Lymphocyte, Absolute 0.8 10 3/mcL Normal 0.8-3.9 [facility] ([place] Comment on above: Performed By: #### B MP, MG, GFR, CBC, ADIFF, ANEU ####[address] [place], [place] [address] Lymphocytes/100 WBC (Bld) 11.5 % Normal 10.0-50.0 [facility] ([place] Comment on above: Performed By: #### B MP, MG, GFR, CBC, ADIFF, ANEU ####[address] [place], [place] [address] Monocyte, Absolute 1.1 10 3/mcL High 0.2-1.0 [facility] ([place] Comment on above: Performed By: #### B MP, MG, GFR, CBC, ADIFF, ANEU ####[address] [place], [place] [address] Monocytes/100 WBC (Bld) 14.6 % High 1.7-13.0 A [facility] ([place]) Comment on above: Performed By: #### B MP, MG, GFR, CBC, ADIFF, ANEU ####[address] [place], [place] [address] Neutrophils/100 WBC (Bld) 72.4 % Normal 37.0-80.0 [facility] ([place] Comment on above: Performed By: #### B MP, MG, GFR, CBC, ADIFF, ANEU ####[address] [place], [place] [address] .GFRon 10-07-2023 GFR Non- 53 ml/min/1.73sqm Normal [facility] ([place] Comment on above: Result Comment: GFR Population mean for , Non- Americans Ages 20-29 = 116 mL/min/1.73 sq.m. Ages 30-39 = 107 mL/min/1.73 sq.m. Ages 40-49 = 99 mL/min/1.73 sq.m. Ages 50-59 = 93 mL/min/1.73 sq.m. Ages 60-69 = 85 mL/min/1.73 sq.m. Ages 70+ = 75 mL/min/1.73 sq.m. Chronic Kidney Disease: Less than 60 mL/min/1.73 square meters End Stage Renal Disease: Less than 15 mL/min/1.73 square meters Performed By: #### B MP, MG, GFR, CBC, ADIFF, ANEU ####[address] [place], [place] [address] GFR 64 ml/min/1.73sqm Normal [facility] ([place] Comment on above: Result Comment: GFR Population mean for , Non- Americans Ages 20-29 = 116 mL/min/1.73 sq.m. Ages 30-39 = 107 mL/min/1.73 sq.m. Ages 40-49 = 99 mL/min/1.73 sq.m. Ages 50-59 = 93 mL/min/1.73 sq.m. Ages 60-69 = 85 mL/min/1.73 sq.m. Ages 70+ = 75 mL/min/1.73 sq.m. Chronic Kidney Disease: Less than 60 mL/min/1.73 square meters End Stage Renal Disease: Less than 15 mL/min/1.73 square meters Performed By: #### B MP, MG, GFR, CBC, ADIFF, ANEU ####[place] [address] [place], [place] [address] .NEUABSon 10-07-2023 Neutrophil, Absolute 5.3 10 3/mcL Normal 2.9-6.2 [facility] ([place]) Comment on above: Performed By: #### B MP, MG, GFR, CBC, ADIFF, ANEU ####[address] [place], [place] [address] ABO/Rh (Gel)on 10-07-2023 ABO/Rh Interp Positive Invalid Interpretation Code [facility] ([place] Comment on above: Performed By: #### C BC, ADIFF, ANEU, BMP, GFR #### [address] [address] ABS (Gel)on 10-07-2023 ABSC Interp (Gel) Negative Normal [facility] ([place] Comment on above: Performed By: #### C BC, ADIFF, ANEU, BMP, GFR #### [address] [address] BMPon 10-07-2023 BUN/Creatinine Ratio 21 ratio Normal 7-27 [facility] ([place] Comment on above: Performed By: #### B MP, MG, GFR, CBC, ADIFF, ANEU ####[facility] [place], [place] [address] Calcium [Mass/Vol] 8.0 mg/dL Low 8.4-10.2 [facility] ([place] Comment on above: Performed By: #### B MP, MG, GFR, CBC, ADIFF, ANEU ####[place] [address] [place], [place] [address] Chloride [Moles/Vol] 105 mmol/L Normal 98-107 [facility] ([place] Comment on above: Performed By: #### B MP, MG, GFR, CBC, ADIFF, ANEU ####[place] [address] [place], [place] [address] CO2 [Moles/Vol] 31 mmol/L Normal 23-31 [facility] ([place] Comment on above: Performed By: #### B MP, MG, GFR, CBC, ADIFF, ANEU ####[address] [place], [place] [address] Creatinine [Mass/Vol] 1.35 mg/dL High 0.70-1.30 [facility] ([place] Comment on above: Performed By: #### B MP, MG, GFR, CBC, ADIFF, ANEU ####[address] [place], [place] [address] Electrolyte Balance 6.0 mEq/L Normal 4.0-15.0 [facility] ([place] Comment on above: Performed By: #### B MP, MG, GFR, CBC, ADIFF, ANEU ####[address] [place], [place] [address] Glucose [Mass/Vol] 148 mg/dL High 80-115 [facility] ([place] Comment on above: Performed By: #### B MP, MG, GFR, CBC, ADIFF, ANEU ####[address] [place], [place] [address] Potassium [Moles/Vol] 4.9 mmol/L Normal 3.5-5.1 [facility] ([place] Comment on above: Performed By: #### B MP, MG, GFR, CBC, ADIFF, ANEU ####[address] [place], [place] [address] Sodium [Moles/Vol] 142 mmol/L Normal 136-145 [facility] ([place] Comment on above: Performed By: #### B MP, MG, GFR, CBC, ADIFF, ANEU ####[address] [place], [place] [address] Urea nitrogen [Mass/Vol] 28 mg/dL High 7-18 [facility] ([place] Comment on above: Performed By: #### B MP, MG, GFR, CBC, ADIFF, ANEU ####[address] [place], [place] [address] CBCon 10-07-2023 Erythrocyte distribution width (RBC) [Ratio] 17.1 % High 11.5-14.5 [facility] ([place] Comment on above: Performed By: #### B MP, MG, GFR, CBC, ADIFF, ANEU ####[address] [place], [place] [address] Hematocrit (Bld) [Volume fraction] 19.5 % Low 42.0-52.0 [facility] ([place] Comment on above: Performed By: #### B MP, MG, GFR, CBC, ADIFF, ANEU ####[address] [place], [place] [address] Hgb 6.5 G/dL Critically abnormal 14.0-18.0 [facility] ([place] Comment on above: Performed By: #### B MP, MG, GFR, CBC, ADIFF, ANEU ####[address] [place], [place] [address] MCH (RBC) [Entitic mass] 29.0 pg Normal 27.0-31.2 [facility] ([place] Comment on above: Performed By: #### B MP, MG, GFR, CBC, ADIFF, ANEU ####[address] [place], [place] [address] MCHC 33.3 G/dL Normal 31.8-35.4 [facility] ([place] Comment on above: Performed By: #### B MP, MG, GFR, CBC, ADIFF, ANEU ####[address] [place], [place] [address] MCV (RBC) [Entitic vol] 87.1 fL Normal 80.0-94.0 A [facility] ([place] Comment on above: Performed By: #### B MP, MG, GFR, CBC, ADIFF, ANEU ####[address] [place], [place] [address] Platelet 147 10 3/mcL Normal 130-400 [facility] ([place] Comment on above: Performed By: #### B MP, MG, GFR, CBC, ADIFF, ANEU ####[address] [place], [place] [address] Platelet mean volume (Bld) [Entitic vol] 10.4 fL Normal 7.4-10.4 [facility] ([place] Comment on above: Performed By: #### B MP, MG, GFR, CBC, ADIFF, ANEU ####[address] [place], [place] [address] RBC 2.24 10 6/mcL Low 4.04-6.13 [facility] ([place] Comment on above: Performed By: #### B MP, MG, GFR, CBC, ADIFF, ANEU ####[address] [place], [place] [address] WBC 7.4 10 3/mcL Normal 4.6-10.8 [facility] ([place] Comment on above: Performed By: #### B MP, MG, GFR, CBC, ADIFF, ANEU ####[address] [place], [place] [address] HHon 10-07-2023 Hematocrit (Bld) [Volume fraction] 21.7 % Low 40.0-52.0 [facility] ([place] Comment on above: Performed By: #### H H ####[place] [address] Hgb 7.4 G/dL Low 13.0-17.5 [facility] ([place] Comment on above: Performed By: #### H H ####[address] [address] LABORATORYOrdered By: Abraham Newberry on 10-07-2023 Blood Glucose Testing Reason Routine (10/07/23 11:49 AM) [facility] Work Phone: Glucose [Mass/Vol] 157 mg/dL High 82 - 115 mg/dL [facility] Work Phone: Blood Glucose Testing Reason Routine (10/07/23 7:41 AM) [facility] Work Phone: Glucose [Mass/Vol] 164 mg/dL High 82 - 115 mg/dL [facility] Work Phone: LABORATORYOrdered By: Liberty Manning on 10-07-2023 RBC Product Ready RBC Ready for Pickup (10/07/23 8:28 AM) Normal AO BB SS ABO and Rh group Nom (Bld) Blood group O Rh(D) positive Invalid Interpretation Code AO BB Auto SS Blood group antibody screen Ql Negative ABSC (10/07/23 8:09 AM) Normal AO BB Auto SS LABORATORYOrdered By: SYSTEM SYSTEM on 10-07-2023 Basophil, Absolute 0.0 103/mcL Normal 0.0 - 0.2 10^3/mcL AO Workflow SS Basophils/100 WBC (Bld) 0.4 % Normal 0.0 - 2.5 % AO Workflow SS Calcium [Mass/Vol] 8.0 mg/dL Low 8.4 - 10. 2 mg/dL AO ADM SS Chloride [Moles/Vol] 105 mmol/L Normal 98 - 10 7 mmol/L AO ADM SS CO2 [Moles/Vol] 31 mmol/L Normal 23 - 31 mmol/L AO ADM SS Creatinine [Mass/Vol] 1.35 mg/dL High 0.70 - 1.30 mg/dL AO ADM SS Electrolyte Balance 6.0 mEq/L Normal 4.0 - 15 .0 mEq/L AO ADM SS Eosinophil, Absolute 0.1 103/mcL Normal 0.0 - 0 .4 10^3/mcL AO Workflow SS Eosinophils/100 WBC (Bld) 1.1 % Normal 0.0 - 7.0 % AO Workflow SS Erythrocyte distribution width (RBC) [Ratio] 17.1 % High 11.5 - 14.5 % AO Workflow SS GFR/1.73 sq M.predicted among blacks MDRD (S/P/Bld) [Vol rate/Area] 64 ml/min/1.73sqm Invalid Interpretation Code AO Chemistry S Comment on above: Interpretive Data: GFR Population mean for , Non- Americans Ages 20-29 = 116 mL/min/1.73 sq.m. Ages 30-39 = 107 mL/min/1.73 sq.m. Ages 40-49 = 99 mL/min/1.73 sq.m. Ages 50-59 = 93 mL/min/1.73 sq.m. Ages 60-69 = 85 mL/min/1.73 sq.m. Ages 70+ = 75 mL/min/1.73 sq.m. Chronic Kidney Disease: Less than 60 mL/min/1.73 square meters End Stage Renal Disease: Less than 15 mL/min/1.73 square meters GFR/1.73 sq M.predicted among non-blacks MDRD (S/P/Bld) [Vol rate/Area] 53 ml/min/1.73sqm Invalid Interpretation Code AO Chemistry S Comment on above: Interpretive Data: GFR Population mean for , Non- Americans Ages 20-29 = 116 mL/min/1.73 sq.m. Ages 30-39 = 107 mL/min/1.73 sq.m. Ages 40-49 = 99 mL/min/1.73 sq.m. Ages 50-59 = 93 mL/min/1.73 sq.m. Ages 60-69 = 85 mL/min/1.73 sq.m. Ages 70+ = 75 mL/min/1.73 sq.m. Chronic Kidney Disease: Less than 60 mL/min/1.73 square meters End Stage Renal Disease: Less than 15 mL/min/1.73 square meters Glucose [Mass/Vol] 148 mg/dL High 80 - 115 mg/dL AO ADM SS Hematocrit (Bld) [Volume fraction] 19.5 % Low 42.0 - 52.0 % AO Workflow SS Hemoglobin (Bld) [Mass/Vol] 6.5 G/dL Invalid Interpretation Code 14.0 - 18.0 G/dL AO Workflow SS Lymphocyte, Absolute 0.8 103/mcL Normal 0.8 - 3 .9 10^3/mcL AO Workflow SS Lymphocytes/100 WBC (Bld) 11.5 % Normal 10.0 - 50.0 % AO Workflow SS Magnesium [Mass/Vol] 2.2 mg/dL Normal 1.8 - 2 .4 mg/dL AO ADM SS MCH (RBC) [Entitic mass] 29.0 pg Normal 27.0 - 31.2 pg AO Workflow SS MCHC 33.3 G/dL Normal 31.8 - 35.4 G/dL AO Workflow SS MCV (RBC) [Entitic vol] 87.1 fL Normal 80.0 - 94.0 fL AO Workflow SS Monocyte, Absolute 1.1 103/mcL High 0.2 - 1.0 10^3/mcL AO Workflow SS Monocytes/100 WBC (Bld) 14.6 % High 1.7 - 13.0 % AO Workflow SS Neutrophil, Absolute 5.3 103/mcL Normal 2.9 - 6 .2 10^3/mcL AO Workflow SS Neutrophils/100 WBC (Bld) 72.4 % Normal 37.0 - 80.0 % AO Workflow SS Platelet mean volume (Bld) [Entitic vol] 10.4 fL Normal 7.4 - 10.4 fL AO Workflow SS Platelets (Bld) [#/Vol] 147 103/mcL Normal 130 - 400 10^3/mcL AO Workflow SS Potassium [Moles/Vol] 4.9 mmol/L Normal 3.5 - 5.1 mmol/L AO ADM SS RBC (Bld) [#/Vol] 2.24 106/mcL Low 4.04 - 6.1 3 10^6/mcL AO Workflow SS Sodium [Moles/Vol] 142 mmol/L Normal 136 - 145 mmol/L AO ADM SS Urea nitrogen [Mass/Vol] 28 mg/dL High 7 - 18 mg/dL AO ADM SS Urea nitrogen/Creatinine [Mass ratio] 21 ratio Normal 7 - 27 ratio AO ADM SS WBC (Bld) [#/Vol] 7.4 103/mcL Normal 4.6 - 10.8 10^3/mcL AO Workflow SS MGon 10-07-2023 Magnesium [Mass/Vol] 2.2 mg/dL Normal 1.8-2.4 [facility] ([place]) Comment on above: Performed By: #### B MP, MG, GFR, CBC, ADIFF, ANEU ####Denise [address] [place], [place] [address] RBC (Product)on 10-07-2023 RBC Product Ready RBC Ready for Pickup Normal [facility] ([place]) Comment on above: Performed By: #### R BCP #### Denise [address] [place], [place] [address] .Auto Diffon 10-06-2023 Basophil, Absolute 0.0 10 3/mcL Normal 0.0-0.2 [facility] ([place]) Comment on above: Performed By: #### G FR, CBC, ADIFF, ANEU, BMP, MG ####Denise [address] [place], [place] [address] Basophils/100 WBC (Bld) 0.4 % Normal 0.0-2.5 A [facility] ([place]) Comment on above: Performed By: #### G FR, CBC, ADIFF, ANEU, BMP, MG ####Denise [address] [place], [place] [address] Eosinophil, Absolute 0.1 10 3/mcL Normal 0.0-0.4 [facility] ([place]) Comment on above: Performed By: #### G FR, CBC, ADIFF, ANEU, BMP, MG ####Denise [address] [place], [place] [address] Eosinophils/100 WBC (Bld) 1.2 % Normal 0.0-7.0 [facility] ([place]) Comment on above: Performed By: #### G FR, CBC, ADIFF, ANEU, BMP, MG ####Denise [address] [place], [place] [address] Lymphocyte, Absolute 0.9 10 3/mcL Normal 0.8-3.9 [facility] ([place]) Comment on above: Performed By: #### G FR, CBC, ADIFF, ANEU, BMP, MG ####Denise [address] [place], [place] [address] Lymphocytes/100 WBC (Bld) 11.3 % Normal 10.0-50.0 [facility] ([place]) Comment on above: Performed By: #### G FR, CBC, ADIFF, ANEU, BMP, MG ####Denise [address] [place], [place] [address] Monocyte, Absolute 1.1 10 3/mcL High 0.2-1.0 [facility] ([place]) Comment on above: Performed By: #### G FR, CBC, ADIFF, ANEU, BMP, MG ####Denise [address] [place], [place] [address] Monocytes/100 WBC (Bld) 13.3 % High 1.7-13.0 A [facility] ([place]) Comment on above: Performed By: #### G FR, CBC, ADIFF, ANEU, BMP, MG ####[address]ise [address] [place], [place] [address] Neutrophils/100 WBC (Bld) 73.8 % Normal 37.0-80.0 [facility] ([place]) Comment on above: Performed By: #### G FR, CBC, ADIFF, ANEU, BMP, MG ####[address] [address] .GFRon 10-06-2023 GFR 59 ml/min/1.73sqm Normal [facility] ([place]) Comment on above: Result Comment: GFR Population mean for , Non- Americans Ages 20-29 = 116 mL/min/1.73 sq.m. Ages 30-39 = 107 mL/min/1.73 sq.m. Ages 40-49 = 99 mL/min/1.73 sq.m. Ages 50-59 = 93 mL/min/1.73 sq.m. Ages 60-69 = 85 mL/min/1.73 sq.m. Ages 70+ = 75 mL/min/1.73 sq.m. Chronic Kidney Disease: Less than 60 mL/min/1.73 square meters End Stage Renal Disease: Less than 15 mL/min/1.73 square meters Performed By: #### C BC, ADIFF, ANEU, BMP, GFR #### [address] [address] GFR Non- 49 ml/min/1.73sqm Normal [facility] ([place]) Comment on above: Result Comment: GFR Population mean for , Non- Americans Ages 20-29 = 116 mL/min/1.73 sq.m. Ages 30-39 = 107 mL/min/1.73 sq.m. Ages 40-49 = 99 mL/min/1.73 sq.m. Ages 50-59 = 93 mL/min/1.73 sq.m. Ages 60-69 = 85 mL/min/1.73 sq.m. Ages 70+ = 75 mL/min/1.73 sq.m. Chronic Kidney Disease: Less than 60 mL/min/1.73 square meters End Stage Renal Disease: Less than 15 mL/min/1.73 square meters Performed By: #### C BC, ADIFF, ANEU, BMP, GFR #### [address] [address] .NEUABSon 10-06-2023 Neutrophil, Absolute 6.0 10 3/mcL Normal 2.9-6.2 [facility] ([place]) Comment on above: Performed By: #### G FR, CBC, ADIFF, ANEU, BMP, MG ####[address] [place], [place] [address] BMPon 10-06-2023 BUN/Creatinine Ratio 19 ratio Normal 7-27 [facility] ([place]) Comment on above: Performed By: #### G FR, CBC, ADIFF, ANEU, BMP, MG ####[address] [place], [place] [address] Calcium [Mass/Vol] 8.1 mg/dL Low 8.4-10.2 [facility] ([place]) Comment on above: Performed By: #### G FR, CBC, ADIFF, ANEU, BMP, MG ####[address]ise [address] [place], [place] [address] Chloride [Moles/Vol] 106 mmol/L Normal 98-107 [facility] ([place]) Comment on above: Performed By: #### G FR, CBC, ADIFF, ANEU, BMP, MG ####[address]ise [address] [place], [place] [address] CO2 [Moles/Vol] 32 mmol/L High 23-31 [facility] ([place]) Comment on above: Performed By: #### G FR, CBC, ADIFF, ANEU, BMP, MG ####[address] [place], [place] [address] Creatinine [Mass/Vol] 1.44 mg/dL High 0.70-1.30 [facility] ([place]) Comment on above: Performed By: #### G FR, CBC, ADIFF, ANEU, BMP, MG ####[address] [place], [place] [address] Electrolyte Balance 1.0 mEq/L Low 4.0-15.0 [facility] ([place]) Comment on above: Performed By: #### G FR, CBC, ADIFF, ANEU, BMP, MG ####[address] [place], [place] [address] Glucose [Mass/Vol] 130 mg/dL High 80-115 [facility] ([place]) Comment on above: Performed By: #### G FR, CBC, ADIFF, ANEU, BMP, MG ####[address] [place], [place] [address] Potassium [Moles/Vol] 4.9 mmol/L Normal 3.5-5.1 [facility] ([place] Comment on above: Performed By: #### G FR, CBC, ADIFF, ANEU, BMP, MG ####[address]ise [address] [place], [place] [address] Sodium [Moles/Vol] 139 mmol/L Normal 136-145 [facility] ([place] Comment on above: Performed By: #### G FR, CBC, ADIFF, ANEU, BMP, MG ####[address] [place], [place] [address] Urea nitrogen [Mass/Vol] 28 mg/dL High 7-18 [facility] ([place] Comment on above: Performed By: #### G FR, CBC, ADIFF, ANEU, BMP, MG ####[address] [place], [place] [address] CBCon 10-06-2023 Erythrocyte distribution width (RBC) [Ratio] 17.3 % High 11.5-14.5 [facility] ([place] Comment on above: Performed By: #### G FR, CBC, ADIFF, ANEU, BMP, MG ####[address] [place], [place] [address] Hematocrit (Bld) [Volume fraction] 20.7 % Low 42.0-52.0 [facility] ([place] Comment on above: Performed By: #### G FR, CBC, ADIFF, ANEU, BMP, MG ####[address] [place], [place] [address] Hgb 7.0 G/dL Low 14.0-18.0 [facility] ([place] Comment on above: Performed By: #### G FR, CBC, ADIFF, ANEU, BMP, MG ####[address] [place], [place] [address] MCH (RBC) [Entitic mass] 29.2 pg Normal 27.0-31.2 [facility] ([place] Comment on above: Performed By: #### G FR, CBC, ADIFF, ANEU, BMP, MG ####[address] [place], [place] [address] MCHC 33.8 G/dL Normal 31.8-35.4 [facility] ([place] Comment on above: Performed By: #### G FR, CBC, ADIFF, ANEU, BMP, MG ####[address] [place], [place] [address] MCV (RBC) [Entitic vol] 86.4 fL Normal 80.0-94.0 A [facility] ([place] Comment on above: Performed By: #### G FR, CBC, ADIFF, ANEU, BMP, MG ####[address] [place], [place] [address] Platelet 149 10 3/mcL Normal 130-400 [facility] ([place] Comment on above: Performed By: #### G FR, CBC, ADIFF, ANEU, BMP, MG ####[address] [place], [place] [address] Platelet mean volume (Bld) [Entitic vol] 10.6 fL High 7.4-10.4 [facility] ([place] Comment on above: Performed By: #### G FR, CBC, ADIFF, ANEU, BMP, MG ####[address] [place], [place] [address] RBC 2.40 10 6/mcL Low 4.04-6.13 [facility] ([place] Comment on above: Performed By: #### G FR, CBC, ADIFF, ANEU, BMP, MG ####[address] [place], [place] [address] WBC 8.2 10 3/mcL Normal 4.6-10.8 [facility] ([place] Comment on above: Performed By: #### G FR, CBC, ADIFF, ANEU, BMP, MG ####[address] [place], [place] [address] CT TIBIA/FIBULA W/O CONTRAST RIGHTon 10-06-2023 CT TIBIA/FIBULA W/O CONTRAST RIGHT ORIGINAL EXAMINATION: CT OF THE RIGHT TIBIA AND FIBULA WITHOUT CONTRAST 10/06/2023 3:19 pm TECHNIQUE: CT of the right tibia and fibula was performed without the administration of intravenous contrast. Multiplanar reformatted images are provided for review. Automated exposure control, iterative reconstruction, and/or weight based adjustment of the mA/kV was utilized to reduce the radiation dose to as low as reasonably achievable. COMPARISON: None. HISTORY ORDERING SYSTEM PROVIDED HISTORY: Reason for Exam: evaluate large hematoma FINDINGS: Bones: No evidence of acute fracture or dislocation. No aggressive appearing osseous abnormality or periostitis. Soft Tissue: Large lateral soft tissue hematoma measuring 11.0 x 5.8 x 28.5 cm. Superior to this at the level of the femur is an additional anterolateral hematoma measuring 7.0 x 1.9 x 7.3 cm. Edema is noted throughout the superficial adipose tissues of the tear lower extremity. Joint: No significant degenerative changes. No osseous erosions. IMPRESSION: 1. Large hematoma in the lateral superficial adipose tissues and extending nearly the entire length of the tibia. 2. Additional small hematoma in the anterolateral soft tissues near the femur. 3. No acute osseous injury. Interpreted by: Dl Black MD Preliminary Report By: Dl Black MD Electronically signed By Dl Black MD Dictated Date: 10/06/2023 5:40:32 PM Prelim Date: 10/06/2023 5:43:23 PM Sign Date: 10/06/2023 5:43:23 PM Ordering Provider: WU Schroeder [facility]) [facility] 10-06-2023 Hematocrit (Bld) [Volume fraction] 21.9 % Low 42.0-52.0 [facility]) Comment on above: Performed By: #### C ZARA CAMACHO ANEU, BMP, GFR #### Denise [address] [address] Hgb 7.3 G/dL Low 14.0-18.0 [facility]) Comment on above: Performed By: #### C ZARA CAMACHO ANEU, BMP, GFR #### Denise [address] [place], [place] [address] LABORATORYOrdered By: Marixa Canela on 10-06-2023 Blood Glucose Testing Reason Routine (10/06/23 9:24 PM) [facility] Work Phone: Glucose [Mass/Vol] 135 mg/dL High 82 - 115 mg/dL [facility] Work Phone: LABORATORYOrdered By: SYSTEM SYSTEM on 10-06-2023 Hematocrit (Bld) [Volume fraction] 21.9 % Low 42.0 - 52.0 % AO Workflow SS Hemoglobin (Bld) [Mass/Vol] 7.3 G/dL Low 14.0 - 18.0 G/dL AO Workflow SS Basophil, Absolute 0.0 103/mcL Normal 0.0 - 0.2 10^3/mcL AO Workflow SS Basophils/100 WBC (Bld) 0.4 % Normal 0.0 - 2.5 % AO Workflow SS Calcium [Mass/Vol] 8.1 mg/dL Low 8.4 - 10. 2 mg/dL AO ADM SS Chloride [Moles/Vol] 106 mmol/L Normal 98 - 10 7 mmol/L AO ADM SS CO2 [Moles/Vol] 32 mmol/L High 23 - 31 mmol/L AO ADM SS Creatinine [Mass/Vol] 1.44 mg/dL High 0.70 - 1.30 mg/dL AO ADM SS Electrolyte Balance 1.0 mEq/L Low 4.0 - 15 .0 mEq/L AO ADM SS Eosinophil, Absolute 0.1 103/mcL Normal 0.0 - 0 .4 10^3/mcL AO Workflow SS Eosinophils/100 WBC (Bld) 1.2 % Normal 0.0 - 7.0 % AO Workflow SS Erythrocyte distribution width (RBC) [Ratio] 17.3 % High 11.5 - 14.5 % AO Workflow SS GFR/1.73 sq M.predicted among blacks MDRD (S/P/Bld) [Vol rate/Area] 59 ml/min/1.73sqm Invalid Interpretation Code AO Chemistry S Comment on above: Interpretive Data: GFR Population mean for , Non- Americans Ages 20-29 = 116 mL/min/1.73 sq.m. Ages 30-39 = 107 mL/min/1.73 sq.m. Ages 40-49 = 99 mL/min/1.73 sq.m. Ages 50-59 = 93 mL/min/1.73 sq.m. Ages 60-69 = 85 mL/min/1.73 sq.m. Ages 70+ = 75 mL/min/1.73 sq.m. Chronic Kidney Disease: Less than 60 mL/min/1.73 square meters End Stage Renal Disease: Less than 15 mL/min/1.73 square meters GFR/1.73 sq M.predicted among non-blacks MDRD (S/P/Bld) [Vol rate/Area] 49 ml/min/1.73sqm Invalid Interpretation Code AO Chemistry S Comment on above: Interpretive Data: GFR Population mean for , Non- Americans Ages 20-29 = 116 mL/min/1.73 sq.m. Ages 30-39 = 107 mL/min/1.73 sq.m. Ages 40-49 = 99 mL/min/1.73 sq.m. Ages 50-59 = 93 mL/min/1.73 sq.m. Ages 60-69 = 85 mL/min/1.73 sq.m. Ages 70+ = 75 mL/min/1.73 sq.m. Chronic Kidney Disease: Less than 60 mL/min/1.73 square meters End Stage Renal Disease: Less than 15 mL/min/1.73 square meters Glucose [Mass/Vol] 130 mg/dL High 80 - 115 mg/dL AO ADM SS Hematocrit (Bld) [Volume fraction] 20.7 % Low 42.0 - 52.0 % AO Workflow SS Hemoglobin (Bld) [Mass/Vol] 7.0 G/dL Low 14.0 - 18.0 G/dL AO Workflow SS Lymphocyte, Absolute 0.9 103/mcL Normal 0.8 - 3 .9 10^3/mcL AO Workflow SS Lymphocytes/100 WBC (Bld) 11.3 % Normal 10.0 - 50.0 % AO Workflow SS Magnesium [Mass/Vol] 2.1 mg/dL Normal 1.8 - 2 .4 mg/dL AO ADM SS MCH (RBC) [Entitic mass] 29.2 pg Normal 27.0 - 31.2 pg AO Workflow SS MCHC 33.8 G/dL Normal 31.8 - 35.4 G/dL AO Workflow SS MCV (RBC) [Entitic vol] 86.4 fL Normal 80.0 - 94.0 fL AO Workflow SS Monocyte, Absolute 1.1 103/mcL High 0.2 - 1.0 10^3/mcL AO Workflow SS Monocytes/100 WBC (Bld) 13.3 % High 1.7 - 13.0 % AO Workflow SS Neutrophil, Absolute 6.0 103/mcL Normal 2.9 - 6 .2 10^3/mcL AO Workflow SS Neutrophils/100 WBC (Bld) 73.8 % Normal 37.0 - 80.0 % AO Workflow SS Platelet mean volume (Bld) [Entitic vol] 10.6 fL High 7.4 - 10.4 fL AO Workflow SS Platelets (Bld) [#/Vol] 149 103/mcL Normal 130 - 400 10^3/mcL AO Workflow SS Potassium [Moles/Vol] 4.9 mmol/L Normal 3.5 - 5.1 mmol/L AO ADM SS RBC (Bld) [#/Vol] 2.40 106/mcL Low 4.04 - 6.1 3 10^6/mcL AO Workflow SS Sodium [Moles/Vol] 139 mmol/L Normal 136 - 145 mmol/L AO ADM SS Urea nitrogen [Mass/Vol] 28 mg/dL High 7 - 18 mg/dL AO ADM SS Urea nitrogen/Creatinine [Mass ratio] 19 ratio Normal 7 - 27 ratio AO ADM SS WBC (Bld) [#/Vol] 8.2 103/mcL Normal 4.6 - 10.8 10^3/mcL AO Workflow SS MGon 10-06-2023 Magnesium [Mass/Vol] 2.1 mg/dL Normal 1.8-2.4 [facility] ([place]) Comment on above: Performed By: #### G FR, CBC, ADIFF, ANEU, BMP, MG ###[address] [place], [place] [address] .Auto Diffon 10-05-2023 Basophil, Absolute 0.0 10 3/mcL Normal 0.0-0.2 [facility] ([place]) Comment on above: Performed By: #### B MP, MG, GFR, CBC, ADIFF, ANEU, MORPH ####[address]ise [address] [place], [place] [address] Basophils/100 WBC (Bld) 0.5 % Normal 0.0-2.5 A [facility] ([place]) Comment on above: Performed By: #### B MP, MG, GFR, CBC, ADIFF, ANEU, MORPH ####Denise [address] [place], [place] [address] Eosinophil, Absolute 0.1 10 3/mcL Normal 0.0-0.4 [facility] ([place]) Comment on above: Performed By: #### B MP, MG, GFR, CBC, ADIFF, ANEU, MORPH ####Denise [address] [place], [place] [address] Eosinophils/100 WBC (Bld) 0.7 % Normal 0.0-7.0 [facility] ([place]) Comment on above: Performed By: #### B MP, MG, GFR, CBC, ADIFF, ANEU, MORPH ####[address]ise [address] [place], [place] [address] Lymphocyte, Absolute 1.0 10 3/mcL Normal 0.8-3.9 [facility] ([place]) Comment on above: Performed By: #### B MP, MG, GFR, CBC, ADIFF, ANEU, MORPH ####Denise [address] [place], [place] [address] Lymphocytes/100 WBC (Bld) 11.4 % Normal 10.0-50.0 [facility] ([place] Comment on above: Performed By: #### B MP, MG, GFR, CBC, ADIFF, ANEU, MORPH ####Denise [address] [place], [place] [address] Monocyte, Absolute 1.0 10 3/mcL Normal 0.2-1.0 [facility] ([place]) Comment on above: Performed By: #### B MP, MG, GFR, CBC, ADIFF, ANEU, MORPH ####Denise [address] [place], [place] [address] Monocytes/100 WBC (Bld) 11.2 % Normal 1.7-13.0 A [facility] ([place] Comment on above: Performed By: #### B MP, MG, GFR, CBC, ADIFF, ANEU, MORPH ####Denise [address] [place], [place] [address] Neutrophils/100 WBC (Bld) 76.2 % Normal 37.0-80.0 [facility] ([place]) Comment on above: Performed By: #### B MP, MG, GFR, CBC, ADIFF, ANEU, MORPH ####[address] [place], [place] [address] .GFRon 10-05-2023 GFR 50 ml/min/1.73sqm Normal [facility] ([place]) Comment on above: Result Comment: GFR Population mean for , Non- Americans Ages 20-29 = 116 mL/min/1.73 sq.m. Ages 30-39 = 107 mL/min/1.73 sq.m. Ages 40-49 = 99 mL/min/1.73 sq.m. Ages 50-59 = 93 mL/min/1.73 sq.m. Ages 60-69 = 85 mL/min/1.73 sq.m. Ages 70+ = 75 mL/min/1.73 sq.m. Chronic Kidney Disease: Less than 60 mL/min/1.73 square meters End Stage Renal Disease: Less than 15 mL/min/1.73 square meters Performed By: #### B MP, MG, GFR, CBC, ADIFF, ANEU, MORPH ####Denise [address] [place], [place] [address] GFR Non- 41 ml/min/1.73sqm Normal [facility] ([place]) Comment on above: Result Comment: GFR Population mean for , Non- Americans Ages 20-29 = 116 mL/min/1.73 sq.m. Ages 30-39 = 107 mL/min/1.73 sq.m. Ages 40-49 = 99 mL/min/1.73 sq.m. Ages 50-59 = 93 mL/min/1.73 sq.m. Ages 60-69 = 85 mL/min/1.73 sq.m. Ages 70+ = 75 mL/min/1.73 sq.m. Chronic Kidney Disease: Less than 60 mL/min/1.73 square meters End Stage Renal Disease: Less than 15 mL/min/1.73 square meters Performed By: #### B MP, MG, GFR, CBC, ADIFF, ANEU, MORPH ####[address] [place], [place] [address] .Morphon 10-05-2023 Platelet Estimate Normal Normal [facility]) Comment on above: Performed By: #### B MP, MG, GFR, CBC, ADIFF, ANEU, MORPH ####[address] [place], [place] [address] .NEUABSon 10-05-2023 Neutrophil, Absolute 6.9 10 3/mcL High 2.9-6.2 [facility] ([place]) Comment on above: Performed By: #### B MP, MG, GFR, CBC, ADIFF, ANEU, MORPH ####[address] [place], [place] [address] BMPon 10-05-2023 BUN/Creatinine Ratio 20 ratio Normal 7-27 [facility]) Comment on above: Performed By: #### B MP, MG, GFR, CBC, ADIFF, ANEU, MORPH ####[address]ise [address] [place], [place] [address] Calcium [Mass/Vol] 8.2 mg/dL Low 8.4-10.2 [facility] ([place]) Comment on above: Performed By: #### B MP, MG, GFR, CBC, ADIFF, ANEU, MORPH ####[address] [place], [place] [address] Chloride [Moles/Vol] 106 mmol/L Normal 98-107 [facility] ([place] Comment on above: Performed By: #### B MP, MG, GFR, CBC, ADIFF, ANEU, MORPH ####[address] [place], [place] [address] CO2 [Moles/Vol] 31 mmol/L Normal 23-31 [facility] ([place] Comment on above: Performed By: #### B MP, MG, GFR, CBC, ADIFF, ANEU, MORPH ####[address] [place], [place] [address] Creatinine [Mass/Vol] 1.66 mg/dL High 0.70-1.30 [facility] ([place]) Comment on above: Performed By: #### B MP, MG, GFR, CBC, ADIFF, ANEU, MORPH ####[address] [place], [place] [address] Electrolyte Balance 3.0 mEq/L Low 4.0-15.0 [facility] ([place]) Comment on above: Performed By: #### B MP, MG, GFR, CBC, ADIFF, ANEU, MORPH ####[address] [place], [place] [address] Glucose [Mass/Vol] 145 mg/dL High 80-115 [facility] ([place]) Comment on above: Performed By: #### B MP, MG, GFR, CBC, ADIFF, ANEU, MORPH ####[address] [place], [place] [address] Potassium [Moles/Vol] 5.2 mmol/L High 3.5-5.1 [facility] ([place] Comment on above: Performed By: #### B MP, MG, GFR, CBC, ADIFF, ANEU, MORPH ####[address] [place], [place] [address] Sodium [Moles/Vol] 140 mmol/L Normal 136-145 [facility] ([place] Comment on above: Performed By: #### B MP, MG, GFR, CBC, ADIFF, ANEU, MORPH ####[address] [place], [place] [address] Urea nitrogen [Mass/Vol] 34 mg/dL High 7-18 [facility] ([place] Comment on above: Performed By: #### B MP, MG, GFR, CBC, ADIFF, ANEU, MORPH ####[address] [place], [place] [address] CBCon 10-05-2023 Erythrocyte distribution width (RBC) [Ratio] 17.6 % High 11.5-14.5 [facility] ([place] Comment on above: Performed By: #### B MP, MG, GFR, CBC, ADIFF, ANEU, MORPH ####[address] [place], [place] [address] Hematocrit (Bld) [Volume fraction] 23.8 % Low 42.0-52.0 [facility] ([place] Comment on above: Performed By: #### B MP, MG, GFR, CBC, ADIFF, ANEU, MORPH ####[address] [place], [place] [address] Hgb 8.2 G/dL Low 14.0-18.0 [facility] ([place] Comment on above: Performed By: #### B MP, MG, GFR, CBC, ADIFF, ANEU, MORPH ####[address] [place], [place] [address] MCH (RBC) [Entitic mass] 29.8 pg Normal 27.0-31.2 [facility] ([place] Comment on above: Performed By: #### B MP, MG, GFR, CBC, ADIFF, ANEU, MORPH ####[address] [place], [place] [address] MCHC 34.4 G/dL Normal 31.8-35.4 [facility] ([place]) Comment on above: Performed By: #### B MP, MG, GFR, CBC, ADIFF, ANEU, MORPH ####[address] [place], [place] [address] MCV (RBC) [Entitic vol] 86.5 fL Normal 80.0-94.0 A [facility] ([place]) Comment on above: Performed By: #### B MP, MG, GFR, CBC, ADIFF, ANEU, MORPH ####[address] [place], [place] [address] Platelet 155 10 3/mcL Normal 130-400 [facility] ([place]) Comment on above: Performed By: #### B MP, MG, GFR, CBC, ADIFF, ANEU, MORPH ####[address] [place], [place] [address] Platelet mean volume (Bld) [Entitic vol] 10.7 fL High 7.4-10.4 [facility] ([place]) Comment on above: Performed By: #### B MP, MG, GFR, CBC, ADIFF, ANEU, MORPH ####[address] [place], [place] [address] RBC 2.76 10 6/mcL Low 4.04-6.13 [facility] ([place]) Comment on above: Performed By: #### B MP, MG, GFR, CBC, ADIFF, ANEU, MORPH ####[id number] [place], [place] [address] WBC 9.1 10 3/mcL Normal 4.6-10.8 [facility] ([place]) Comment on above: Performed By: #### B MP, MG, GFR, CBC, ADIFF, ANEU, MORPH ####[id number] [place], [place] [address] LABORATORYOrdered By: SYSTEM SYSTEM on 10-05-2023 Basophil, Absolute 0.0 103/mcL Normal 0.0 - 0.2 10^3/mcL AO Workflow SS Basophils/100 WBC (Bld) 0.5 % Normal 0.0 - 2.5 % AO Workflow SS Calcium [Mass/Vol] 8.2 mg/dL Low 8.4 - 10. 2 mg/dL AO ADM SS Chloride [Moles/Vol] 106 mmol/L Normal 98 - 10 7 mmol/L AO ADM SS CO2 [Moles/Vol] 31 mmol/L Normal 23 - 31 mmol/L AO ADM SS Creatinine [Mass/Vol] 1.66 mg/dL High 0.70 - 1.30 mg/dL AO ADM SS Electrolyte Balance 3.0 mEq/L Low 4.0 - 15 .0 mEq/L AO ADM SS Eosinophil, Absolute 0.1 103/mcL Normal 0.0 - 0 .4 10^3/mcL AO Workflow SS Eosinophils/100 WBC (Bld) 0.7 % Normal 0.0 - 7.0 % AO Workflow SS Erythrocyte distribution width (RBC) [Ratio] 17.6 % High 11.5 - 14.5 % AO Workflow SS GFR/1.73 sq M.predicted among blacks MDRD (S/P/Bld) [Vol rate/Area] 50 ml/min/1.73sqm Invalid Interpretation Code AO Chemistry S Comment on above: Interpretive Data: GFR Population mean for , Non- Americans Ages 20-29 = 116 mL/min/1.73 sq.m. Ages 30-39 = 107 mL/min/1.73 sq.m. Ages 40-49 = 99 mL/min/1.73 sq.m. Ages 50-59 = 93 mL/min/1.73 sq.m. Ages 60-69 = 85 mL/min/1.73 sq.m. Ages 70+ = 75 mL/min/1.73 sq.m. Chronic Kidney Disease: Less than 60 mL/min/1.73 square meters End Stage Renal Disease: Less than 15 mL/min/1.73 square meters GFR/1.73 sq M.predicted among non-blacks MDRD (S/P/Bld) [Vol rate/Area] 41 ml/min/1.73sqm Invalid Interpretation Code AO Chemistry S Comment on above: Interpretive Data: GFR Population mean for , Non- Americans Ages 20-29 = 116 mL/min/1.73 sq.m. Ages 30-39 = 107 mL/min/1.73 sq.m. Ages 40-49 = 99 mL/min/1.73 sq.m. Ages 50-59 = 93 mL/min/1.73 sq.m. Ages 60-69 = 85 mL/min/1.73 sq.m. Ages 70+ = 75 mL/min/1.73 sq.m. Chronic Kidney Disease: Less than 60 mL/min/1.73 square meters End Stage Renal Disease: Less than 15 mL/min/1.73 square meters Glucose [Mass/Vol] 145 mg/dL High 80 - 115 mg/dL AO ADM SS Lymphocyte, Absolute 1.0 103/mcL Normal 0.8 - 3 .9 10^3/mcL AO Workflow SS Lymphocytes/100 WBC (Bld) 11.4 % Normal 10.0 - 50.0 % AO Workflow SS Magnesium [Mass/Vol] 2.1 mg/dL Normal 1.8 - 2 .4 mg/dL AO ADM SS MCH (RBC) [Entitic mass] 29.8 pg Normal 27.0 - 31.2 pg AO Workflow SS MCHC 34.4 G/dL Normal 31.8 - 35.4 G/dL AO Workflow SS MCV (RBC) [Entitic vol] 86.5 fL Normal 80.0 - 94.0 fL AO Workflow SS Monocyte, Absolute 1.0 103/mcL Normal 0.2 - 1.0 10^3/mcL AO Workflow SS Monocytes/100 WBC (Bld) 11.2 % Normal 1.7 - 13.0 % AO Workflow SS Neutrophil, Absolute 6.9 103/mcL High 2.9 - 6 .2 10^3/mcL AO Workflow SS Neutrophils/100 WBC (Bld) 76.2 % Normal 37.0 - 80.0 % AO Workflow SS Platelet mean volume (Bld) [Entitic vol] 10.7 fL High 7.4 - 10.4 fL AO Workflow SS Platelets (Bld) [#/Vol] 155 103/mcL Normal 130 - 400 10^3/mcL AO Workflow SS Potassium [Moles/Vol] 5.2 mmol/L High 3.5 - 5.1 mmol/L AO ADM SS RBC (Bld) [#/Vol] 2.76 106/mcL Low 4.04 - 6.1 3 10^6/mcL AO Workflow SS Sodium [Moles/Vol] 140 mmol/L Normal 136 - 145 mmol/L AO ADM SS Urea nitrogen [Mass/Vol] 34 mg/dL High 7 - 18 mg/dL AO ADM SS Urea nitrogen/Creatinine [Mass ratio] 20 ratio Normal 7 - 27 ratio AO ADM SS WBC (Bld) [#/Vol] 9.1 103/mcL Normal 4.6 - 10.8 10^3/mcL AO Workflow SS LABORATORYOrdered By: Mara Lizama on 10-05-2023 Platelet Estimate Normal (10/05/23 5:26 AM) Normal AO Hematology S MGon 10-05-2023 Magnesium [Mass/Vol] 2.1 mg/dL Normal 1.8-2.4 [facility] ([place]) Comment on above: Performed By: #### B MP, MG, GFR, CBC, ADIFF, ANEU, MORPH ####[address] [place], [place] [address] .GFRon 10-04-2023 GFR 60 ml/min/1.73sqm Normal [facility] ([place]) Comment on above: Result Comment: GFR Population mean for , Non- Americans Ages 20-29 = 116 mL/min/1.73 sq.m. Ages 30-39 = 107 mL/min/1.73 sq.m. Ages 40-49 = 99 mL/min/1.73 sq.m. Ages 50-59 = 93 mL/min/1.73 sq.m. Ages 60-69 = 85 mL/min/1.73 sq.m. Ages 70+ = 75 mL/min/1.73 sq.m. Chronic Kidney Disease: Less than 60 mL/min/1.73 square meters End Stage Renal Disease: Less than 15 mL/min/1.73 square meters Performed By: #### A ALEXANDER RUTHERFORD #### [address] [address] GFR Non- 50 ml/min/1.73sqm Normal [facility] ([place]) Comment on above: Result Comment: GFR Population mean for , Non- Americans Ages 20-29 = 116 mL/min/1.73 sq.m. Ages 30-39 = 107 mL/min/1.73 sq.m. Ages 40-49 = 99 mL/min/1.73 sq.m. Ages 50-59 = 93 mL/min/1.73 sq.m. Ages 60-69 = 85 mL/min/1.73 sq.m. Ages 70+ = 75 mL/min/1.73 sq.m. Chronic Kidney Disease: Less than 60 mL/min/1.73 square meters End Stage Renal Disease: Less than 15 mL/min/1.73 square meters Performed By: #### A ALEXANDER RUTHERFORD #### [address] [address] .Urinalysis Microscopic (AO) on 10-04-2023 UA Bacteria 1+ /hpf Abnormal [facility] ([place]) Comment on above: Performed By: #### A ALEXANDER RUTHERFORD #### [address] [address] UA RBC LOADED Abnormal None Seen [facility] ([place]) Comment on above: Performed By: #### A ALEXANDER RUTHERFORD #### [address] [address] UA Squam Epithelial 0-5 Abnormal None Seen [facility] ([place]) Comment on above: Performed By: #### A ALEXANDER RUTHERFORD #### [address] [address] UA WBC 10-15 Abnormal None Seen [facility] ([place]) Comment on above: Performed By: #### A ALEXANDER RUTHERFORD #### [address] [address] AMOXICILLIN+CLAVULANATE:SUSC :PT:ISOLATE:ORDQN:MICon 10-04-2023 Amoxicillin+Clavulanate KIARA [Susc] 10,000 - 50,000 cfu/ml Enterobacter cloacae [facility] Work Phone: Amoxicillin+Clavulanate KIARA [Susc]on 10-04-2023 Enterobacter cloacae complex Enterobacter cloacae complex [facility] Work Phone: BMPon 10-04-2023 BUN/Creatinine Ratio 21 ratio Normal 7-27 [facility] ([place]) Comment on above: Performed By: #### A ALEXANDER RUTHERFORD #### [address] [address] Calcium [Mass/Vol] 8.6 mg/dL Normal 8.4-10.2 [facility] ([place]) Comment on above: Performed By: #### A ALEXANDER RUTHERFORD #### [address] [address] Chloride [Moles/Vol] 109 mmol/L High 98-107 [facility] ([place] Comment on above: Performed By: #### A ALEXANDER RUTHERFORD #### [address] [address] CO2 [Moles/Vol] 31 mmol/L Normal 23-31 [facility] ([place] Comment on above: Performed By: #### A ALEXANDER RUTHERFORD #### [address] [address] Creatinine [Mass/Vol] 1.42 mg/dL High 0.70-1.30 [facility] ([place]) Comment on above: Performed By: #### A ALEXANDER RUTHERFORD #### [address] [address] Electrolyte Balance 3.0 mEq/L Low 4.0-15.0 [facility] ([place]) Comment on above: Performed By: #### A BSMERISSA, ABOGEL #### [address] [address] Glucose [Mass/Vol] 134 mg/dL High 80-115 [facility] ([place]) Comment on above: Performed By: #### A BSMERISSA, ABOGEL #### [address] [address] Potassium [Moles/Vol] 5.0 mmol/L Normal 3.5-5.1 [facility] ([place]) Comment on above: Performed By: #### A BSMERISSA, ABOGEL #### [address] [address] Sodium [Moles/Vol] 143 mmol/L Normal 136-145 [facility] ([place]) Comment on above: Performed By: #### A BSMERISSA, ABOGEL #### [address] [address] Urea nitrogen [Mass/Vol] 30 mg/dL High 7-18 [facility] ([place] Comment on above: Performed By: #### A BSMERISSA, ABOGEL #### [address] [address] LABORATORYOrdered By: Louie kilpatrick on 10-04-2023 Appearance (U) Cloudy *ABN* (10/04/23 2:02 PM) Invalid Interpretation Code Clear AO Auto Urine SS Bacteria LM.HPF (Urine sed) [#/Area] 1 /[HPF] Invalid Interpretation Code AO Auto Urine SS Bilirubin Ql (U) Negative (10/04/23 2:02 PM) Normal Negative AO Auto Urine SS Color (U) Red *ABN* (10/04/23 2:02 PM) Invalid Interpretation Code AO Auto Urine SS Glucose Test strip (U) [Mass/Vol] Negative Normal Negative AO Auto Urine SS Hemoglobin Auto test strip (U) [Mass/Vol] Large *ABN* (10/04/23 2:02 PM) Invalid Interpretation Code Negative AO Auto Urine SS Ketones Ql (U) Negative Normal Negative AO Auto Urine SS UA Leuk Est Small *ABN* (10/04/23 2:02 PM) Invalid Interpretation Code Negative AO Auto Urine SS UA Nitrite Negative (10/04/23 2:02 PM) Normal Negative AO Auto Urine SS UA pH 5.0 (10/04/23 2:02 PM) Normal 5.0 - 8.0 AO Auto Urine SS UA Protein 100 mg/dL Invalid Interpretation Code Negative AO Auto Urine SS UA RBC LOADED /HPF Invalid Interpretation Code None Seen AO Auto Urine SS UA Spec Grav 1.025 (10/04/23 2:02 PM) Normal 1.015-1.025 AO Auto Urine SS UA Specimen Type Void (10/04/23 2:02 PM) Normal AO Auto Urine SS UA Squam Epithelial 0-5 /HPF Invalid Interpretation Code None Seen AO Auto Urine SS UA Urobilinogen 0.2 E.U./dL Normal 0.2-1.0 AO Auto Urine SS WBC LM.HPF (Urine sed) [#/Area] 10-15 /HPF Invalid Interpretation Code None Seen AO Auto Urine SS MGon 10-04-2023 Magnesium [Mass/Vol] 2.2 mg/dL Normal 1.8-2.4 [facility] ([place] Comment on above: Performed By: #### A ALEXANDER RUTHERFORD #### [place] [address] UAon 10-04-2023 Color (U) Red Abnormal [facility] ([place] Comment on above: Performed By: #### A ALEXANDER RUTHERFORD #### [place] [address] Glucose (U) [Mass/Vol] Negative Normal Negative [facility] ([place]) Comment on above: Performed By: #### A ALEXANDER RUTHERFORD #### [address] [address] Ketones Ql (U) Negative Normal Negative [facility] ([place] Comment on above: Performed By: #### A ALEXANDER RUTHERFORD #### [place] [id number] UA Appear Cloudy Abnormal Clear [facility] ([place] Comment on above: Performed By: #### A ALEXANDER RUTHERFORD #### [address] [address] UA Blood Large Abnormal Negative [facility] ([place] Comment on above: Performed By: #### ALEXANDER TURNER #### [address] [address] UA Leuk Est Small Abnormal Negative [facility] ([place] Comment on above: Performed By: #### A ALEXANDER RUTHERFROD #### [address] [address] UA Nitrite Negative Normal Negative [facility] ([place] Comment on above: Performed By: #### A ALEXANDER RUTHERFORD #### [address] [address] UA pH 5.0 Normal 5.0 - 8.0 [facility] ([place] Comment on above: Performed By: #### A ALEXANDER RUTHERFORD #### [address] [address] UA Protein 100 mg/dL Abnormal Negative [facility] ([place] Comment on above: Performed By: #### A ALEXANDER RUTHERFORD #### [place] [address] UA Spec Grav 1.025 Normal 1.015-1.025 [facility] ([place] Comment on above: Performed By: #### A RUBIO RUTHERFORDGEL #### [place] [address] UA Specimen Type Void Normal [facility] ([place] Comment on above: Performed By: #### A RUBIO RUTHERFORDGEL #### [address] [address] UA Urobilinogen 0.2 E.U./dL Normal 0.2-1.0 [facility] ([place] Comment on above: Performed By: #### A KRISH ABOGEL #### [address] [address] Urobilinogen (U) [Mass/Vol] Negative Normal Negative [facility] ([place] Comment on above: Performed By: #### A KRISH ABOGEL #### [place] [address] .Auto Diffon 10-03-2023 Basophil, Absolute 0.1 10 3/mcL Normal 0.0-0.2 [facility] ([place] Comment on above: Performed By: #### A BSGEL, ABOGEL #### [address] [address] Basophils/100 WBC (Bld) 0.6 % Normal 0.0-2.5 A [facility] ([place] Comment on above: Performed By: #### A BSGEL, ABOGEL #### [address] [address] Eosinophil, Absolute 0.1 10 3/mcL Normal 0.0-0.4 [facility] ([place]) Comment on above: Performed By: #### A BSGEL, ABOGEL #### [address] [address] Eosinophils/100 WBC (Bld) 1.0 % Normal 0.0-7.0 [facility] ([place]) Comment on above: Performed By: #### A BSGEL, ABOGEL #### [address] [address] Lymphocyte, Absolute 1.0 10 3/mcL Normal 0.8-3.9 [facility] ([place]) Comment on above: Performed By: #### A BSGEL, ABOGEL #### [address] [address] Lymphocytes/100 WBC (Bld) 10.6 % Normal 10.0-50.0 [facility] ([place]) Comment on above: Performed By: #### A BSGEL, ABOGEL #### [address] [address] Monocyte, Absolute 0.7 10 3/mcL Normal 0.2-1.0 [facility] ([place]) Comment on above: Performed By: #### A BSGEL, ABOGEL #### [address] [address] Monocytes/100 WBC (Bld) 8.1 % Normal 1.7-13.0 A [facility] ([place]) Comment on above: Performed By: #### A BSGEL, ABOGEL #### [address] [address] Neutrophils/100 WBC (Bld) 79.7 % Normal 37.0-80.0 [facility] ([place]) Comment on above: Performed By: #### A ALEXANDER RUTHERFORD #### [address] [address] .GFRon 10-03-2023 GFR 57 ml/min/1.73sqm Normal [facility] ([place] Comment on above: Result Comment: GFR Population mean for , Non- Americans Ages 20-29 = 116 mL/min/1.73 sq.m. Ages 30-39 = 107 mL/min/1.73 sq.m. Ages 40-49 = 99 mL/min/1.73 sq.m. Ages 50-59 = 93 mL/min/1.73 sq.m. Ages 60-69 = 85 mL/min/1.73 sq.m. Ages 70+ = 75 mL/min/1.73 sq.m. Chronic Kidney Disease: Less than 60 mL/min/1.73 square meters End Stage Renal Disease: Less than 15 mL/min/1.73 square meters Performed By: #### A ALEXANDER RUTHERFORD #### [place] [address] GFR Non- 47 ml/min/1.73sqm Normal [facility] ([place] Comment on above: Result Comment: GFR Population mean for , Non- Americans Ages 20-29 = 116 mL/min/1.73 sq.m. Ages 30-39 = 107 mL/min/1.73 sq.m. Ages 40-49 = 99 mL/min/1.73 sq.m. Ages 50-59 = 93 mL/min/1.73 sq.m. Ages 60-69 = 85 mL/min/1.73 sq.m. Ages 70+ = 75 mL/min/1.73 sq.m. Chronic Kidney Disease: Less than 60 mL/min/1.73 square meters End Stage Renal Disease: Less than 15 mL/min/1.73 square meters Performed By: #### A ALEXANDER RUTHERFORD #### [address] [address] .MDWon 10-03-2023 Monocyte Distribution Width 18.48 Normal 0.00-20.00 [facility] ([place]) Comment on above: Result Comment: For ED adult patients suspected of sepsis, MDW<=20.0 does not rule out sepsis or risk of sepsis Performed By: #### A ALEXANDER RUTHERFORD #### [address] [address] .NEUABSon 10-03-2023 Neutrophil, Absolute 7.2 10 3/mcL High 2.9-6.2 [facility] ([place]) Comment on above: Performed By: #### A ALEXANDER RUTHERFORD #### [address] [address] BMPon 10-03-2023 BUN/Creatinine Ratio 21 ratio Normal 7-27 [facility] ([place] Comment on above: Performed By: #### A ALEXANDER RUTHERFORD #### [address] [address] Calcium [Mass/Vol] 8.4 mg/dL Normal 8.4-10.2 [facility] ([place] Comment on above: Performed By: #### A ALEXANDER RUTHERFORD #### [address] [address] Chloride [Moles/Vol] 105 mmol/L Normal 98-107 [facility] ([place] Comment on above: Performed By: #### A ALEXANDER RUTHERFORD #### [address] [address] CO2 [Moles/Vol] 31 mmol/L Normal 23-31 [facility] ([place] Comment on above: Performed By: #### A ALEXANDER RUTHERFORD #### [address] [address] Creatinine [Mass/Vol] 1.49 mg/dL High 0.70-1.30 [facility] ([place]) Comment on above: Performed By: #### A ALEXANDER RUTHERFORD #### [address] [address] Electrolyte Balance 10.0 mEq/L Normal 4.0-15.0 [facility] ([place]) Comment on above: Performed By: #### A ALEXANDER RUTHERFORD #### [address] [address] Glucose [Mass/Vol] 175 mg/dL High 80-115 [facility] ([place] Comment on above: Performed By: #### A ALEXANDER RUTHERFORD #### [address] [address] Potassium [Moles/Vol] 5.1 mmol/L Normal 3.5-5.1 [facility] ([place] Comment on above: Performed By: #### A ALEXANDER RUTHERFORD #### [address] [address] Sodium [Moles/Vol] 146 mmol/L High 136-145 [facility] ([place] Comment on above: Performed By: #### A ALEXANDER RUTHERFORD #### [address] [address] Urea nitrogen [Mass/Vol] 31 mg/dL High 7-18 [facility] ([place] Comment on above: Performed By: #### A ALEXANDER RUTHERFORD #### [address] [address] CBCon 10-03-2023 Erythrocyte distribution width (RBC) [Ratio] 17.6 % High 11.5-14.5 [facility] ([place] Comment on above: Performed By: #### A ALEXANDER RUTHERFORD #### [address] [address] Hematocrit (Bld) [Volume fraction] 36.9 % Low 42.0-52.0 [facility] ([place] Comment on above: Performed By: #### A ALEXANDER RUTHERFORD #### [address] [address] Hgb 12.4 G/dL Low 14.0-18.0 [facility] ([place] Comment on above: Performed By: #### A ALEXANDER RUTHERFORD #### [address] [address] MCH (RBC) [Entitic mass] 29.1 pg Normal 27.0-31.2 [facility] ([place] Comment on above: Performed By: #### A ALEXANDER RUTHERFORD #### [address] [address] MCHC 33.6 G/dL Normal 31.8-35.4 [facility] ([place] Comment on above: Performed By: #### A ALEXANDER RUTHERFORD #### [address] [address] MCV (RBC) [Entitic vol] 86.6 fL Normal 80.0-94.0 A [facility] ([place] Comment on above: Performed By: #### A ALEXANDER RUTHERFORD #### [address] [address] Platelet 175 10 3/mcL Normal 130-400 [facility] ([place] Comment on above: Performed By: #### A ALEXANDER RUTHERFORD #### [address] [address] Platelet mean volume (Bld) [Entitic vol] 9.8 fL Normal 7.4-10.4 [facility] ([place] Comment on above: Performed By: #### A ALEXANDER RUTHERFORD #### [place] [id number] RBC 4.26 10 6/mcL Normal 4.04-6.13 [facility] ([place] Comment on above: Performed By: #### A ALEXANDER RUTHERFORD #### [address] [address] WBC 9.0 10 3/mcL Normal 4.6-10.8 [facility] ([place] Comment on above: Performed By: #### A ALEXANDER RUTHERFORD #### [place] [address] CT HEAD OR BRAIN W/O CONTRAS Ton 10-03-2023 CT HEAD OR BRAIN W/O CONTRAST ORIGINAL EXAMINATION: CT OF THE HEAD WITHOUT CONTRAST 10/03/2023 5:22 pm TECHNIQUE: CT of the head was performed without the administration of intravenous contrast. Automated exposure control, iterative reconstruction, and/or weight based adjustment of the mA/kV was utilized to reduce the radiation dose to as low as reasonably achievable. COMPARISON: None. HISTORY: ORDERING SYSTEM PROVIDED HISTORY: Reason for Exam: pain FINDINGS: Sensitivity and specificity is reduced due to extensive streak artifact. Within these confines: BRAIN/VENTRICLES: There is no acute intracranial hemorrhage, mass effect or midline shift. No abnormal extra-axial fluid collection. The humphrey-white differentiation is maintained without evidence of an acute infarct. There is no evidence of hydrocephalus. ORBITS: The visualized portion of the orbits demonstrate no acute abnormality. SINUSES: The left maxillary sinus is opacified. SOFT TISSUES/SKULL: No acute abnormality of the visualized skull there is a right frontoparietal laceration and a right frontal soft tissue hematoma. IMPRESSION: 1. Sensitivity and specificity is reduced due to extensive streak artifact. Within these confines: No acute intracranial abnormality. 2. Right frontal laceration and soft tissue hematoma. Interpreted by: Shayna Dominguez Preliminary Report By: Shayna Dominguez Electronically signed By Shayna Dominguez Dictated Date: 10/03/2023 5:26:34 PM Prelim Date: 10/03/2023 5:29:10 PM Sign Date: 10/03/2023 5:29:10 PM Ordering Provider: ALMAS PEREA [facility] ([place]) [place] MAXILLOFACIAL W/O CONTRAS Ton 10-03-2023 CT MAXILLOFACIAL W/O CONTRAST ORIGINAL EXAMINATION: CT OF THE FACE WITHOUT CONTRAST 10/03/2023 5:22 pm TECHNIQUE: CT of the face was performed without the administration of intravenous contrast. Multiplanar reformatted images are provided for review. Automated exposure control, iterative reconstruction, and/or weight based adjustment of the mA/kV was utilized to reduce the radiation dose to as low as reasonably achievable. COMPARISON: None HISTORY: ORDERING SYSTEM PROVIDED HISTORY: Reason for Exam: pain FINDINGS: FACIAL BONES: The frontal sinuses, orbital gamino, maxilla, pterygoid plates, zygomatic arches, hard palate, nasal bones and mandible are intact. The temporomandibular joints are aligned. ORBITAL CONTENTS: The globes appear intact. The extraocular muscles, optic nerve sheath complexes and lacrimal glands appear unremarkable. No retrobulbar hematoma or mass is seen. SINUSES: The left maxillary sinus is opacified. Otherwise there is no evidence of acute sinusitis, such as air fluid level. The mastoid air cells are clear. SOFT TISSUES: There is a right frontal scalp laceration and soft tissue hematoma. IMPRESSION: No acute traumatic injury of the facial bones. Right frontal scalp laceration and soft tissue hematoma. Opacified left maxillary sinus could reflect sinusitis in the appropriate clinical context. Interpreted by: Shayna Dominguez Preliminary Report By: Shayna Dominguez Electronically signed By Shayna Dominguez Dictated Date: 10/03/2023 5:29:20 PM Prelim Date: 10/03/2023 5:32:03 PM Sign Date: 10/03/2023 5:32:03 PM Ordering Provider: [facility] CT SPINE CERVICAL W/O CONTRA STon 10-03-2023 CT SPINE CERVICAL W/O CONTRAST ORIGINAL EXAMINATION: CT OF THE CERVICAL SPINE WITHOUT CONTRAST 10/03/2023 5:23 pm TECHNIQUE: CT of the cervical spine was performed without the administration of intravenous contrast. Multiplanar reformatted images are provided for review. Automated exposure control, iterative reconstruction, and/or weight based adjustment of the mA/kV was utilized to reduce the radiation dose to as low as reasonably achievable. COMPARISON: None. HISTORY: ORDERING SYSTEM PROVIDED HISTORY: Reason for Exam: pain Fall injury FINDINGS: The patient is rotated and tilted in posture, somewhat compromising the study, but the alignment of the spine is maintained. The vertebral bodies, articular pillars and other posterior elements are intact with no evidence of fracture or subluxation. The atlanto-axial relationship is maintained. Mild degenerative changes are seen, particularly in the lower cervical spine. The paraspinal soft tissue structures are unremarkable. There is complete opacification of the partially included left maxillary sinus. Some chronic sclerosis of multiple inferior left mastoid air cells. IMPRESSION: No acute abnormality of the cervical spine. Interpreted by: Marilee Chavez DO Preliminary Report By: Marilee Chavez DO Electronically signed By Marilee Chavez DO Dictated Date: 10/03/2023 5:30:00 PM Prelim Date: 10/03/2023 5:35:35 PM Sign Date: 10/03/2023 5:35:35 PM Ordering Provider: ALMAS PEREA [facility] ([place]) LABORATORYOrdered By: SYSTEM SYSTEM on 10-03-2023 Monocyte distribution width Auto (Bld) [Entitic vol] 18.48 1 Normal 0.00 - 20.00 AO Workflow SS Comment on above: Result Comment: For ED adult patients suspected of sepsis, MDW<=20.0 does not rule out sepsis or risk of sepsis Troponin I.cardiac DL <= 0.01 ng/mL [Mass/Vol] 12 ng/L Normal 0 - 76 ng/L AO ADM SS Comment on above: Interpretive Data: H igh Sensitive Troponin I Reference Ranges: Female: 0-51 ng/L Male: 0-76 ng/L Testing performed on Dimension EXL using a homogeneous sandwich chemiluminescent immunoassay based on NCR technology. TROPHSon 10-03-2023 High Sensitivity Troponin I 12 ng/L Normal 0-76 [facility] ([place]) Comment on above: Result Comment: High Sensitive Troponin I Reference Ranges: Female: 0-51 ng/L Male: 0-76 ng/L Testing performed on Dimension EXL using a homogeneous sandwich chemiluminescent immunoassay based on LOCI technology. Performed By: #### A KRISH, ALEXANDER #### [place] [address] XR CHEST 1 VIEWon 10-03-2023 XR CHEST 1 VIEW ORIGINAL EXAMINATION: ONE XRAY VIEW OF THE CHEST10/03/2023 5:23 pm COMPARISON: Chest radiograph 11/03/2021 HISTORY: ORDERING SYSTEM PROVIDED HISTORY: Reason for Exam: cough FINDINGS: The cardiomediastinal silhouette and median sternal wires appear similar given difference in technique. Low lung volumes with hypoventilatory change, notably diffuse interstitial prominence and bronchovascular crowding. No large focal consolidative opacity. No large pleural effusion. No pneumothorax. IMPRESSION: Hypoventilatory changes notably with bronchovascular crowding and interstitial prominence. Superimposed mild pulmonary edema may be present. Infectious etiology should also be considered in the appropriate clinical setting. I have personally reviewed the images of this examination and agree with the resident's findings and interpretation. Interpreted by: Shayna Dominguez Preliminary Report By: Amarjit Fermin Electronically signed By Shayna Dominguez Dictated Date: 10/03/2023 5:35:05 PM Prelim Date: 10/03/2023 5:36:57 PM Sign Date: 10/03/2023 5:39:25 PM Ordering Provider: ALMAS Schroeder [facility] ([place]) XR KNEE 1 OR 2 VIEWS RIGHTon 10-03-2023 XR KNEE 1 OR 2 VIEWS RIGHT ORIGINAL EXAMINATION: TWO XRAY VIEWS OF THE RIGHT KNEE 10/03/2023 5:25 pm COMPARISON: None. HISTORY: ORDERING SYSTEM PROVIDED HISTORY: Reason for Exam: pain FINDINGS: No evidence of acute fracture or dislocation. Patellar tendon enthesophyte. No focal osseous lesion. No evidence of joint effusion. No focal soft tissue abnormality. IMPRESSION: No acute abnormality of the knee. Interpreted by: Shayna Dominguez Preliminary Report By: Shayna Dominguez Electronically signed By Shayna Dominguez Dictated Date: 10/03/2023 5:34:42 PM Prelim Date: 10/03/2023 5:35:14 PM Sign Date: 10/03/2023 5:35:14 PM Ordering Provider: [facility]) XR TIBIA/FIBULA 2 VIEWS RIG Ton 10-03-2023 XR TIBIA/FIBULA 2 VIEWS RIGHT ORIGINAL EXAMINATION: TWO XRAY VIEWS OF THE RIGHT TIBIA/FIBULA10/03/2023 7:04 pm COMPARISON: Same day knee radiograph HISTORY: Reason for exam: Fall FINDINGS: There is no acute fracture. Partially imaged ankle joint appears to be in appropriate anatomic alignment, not evaluated in detail confused. Diffuse soft tissue edema. No aggressive osseous lesions. IMPRESSION: No acute fracture. Diffuse soft tissue edema. I have personally reviewed the images of this examination and agree with the resident's findings and interpretation. Interpreted by: Shayna Dominguez Preliminary Report By: Amarjit Fermin Electronically signed By Shayna Dominguez Dictated Date: 10/03/2023 7:08:17 PM Prelim Date: 10/03/2023 7:13:04 PM Sign Date: 10/03/2023 7:14:25 PM Ordering Provider: [facility] US AAA SCREENINGon US AAA SCREENING ORIGINAL EXAMINATION: SCREENING ULTRASOUND OF THE AORTA07/23/2023 10:50 am Ultrasound of the abdominal aorta COMPARISON: CT 07/02/2021 HISTORY: ORDERING SYSTEM PROVIDED HISTORY: Reason for Exam: age and risk appropriate screening, FINDINGS: Patient's large body habitus limits visualization of the aorta. Only segmental visualization is possible. The abdominal aorta shows at least mild atherosclerotic changes. The proximal common iliac arteries are nonaneurysmal. AP and Transverse diameter of the proximal segment: 3.1 x 3.1 cm AP and Transverse diameter of the mid segment: 2.9 x 3.0 cm AP and Transverse diameter of the distal segment: 2.3 x 2.1 cm IMPRESSION: Suboptimal visualization of the aorta. Based on these measurements, there is a 3.1 cm aneurysm of the proximal aorta. A 3 year followup is recommended based on the AAA size interval of 3.0-3.4 cm. Reference: J Vasc Surgery 2009 Apr;50(4 Supplemental):S2-49 Interpreted by: Reginaldo Owen MD Preliminary Report By: Reginaldo Owen MD Electronically signed By Reginaldo Owen MD Dictated Date: 07/23/2023 12:47:55 PM Prelim Date: 07/23/2023 12:51:23 PM Sign Date: 07/23/2023 12:51:23 PM Ordering Provider: KELLIE Schroeder [facility] ([place]) LABORATORYOrdered By: Nica Rebit [place]top on 03-16-2023 Glucose [Mass/Vol] 153 mg/dL Invalid Interpretation Code 82 - 115 mg/dL [facility] Work Phone: LABORATORYOrdered By: SYSTEM SYSTEM on 03-08-2023 Basophil, Absolute 0.0 103/mcL Invalid Interpretation Code 0.0 - 0.2 10^3/mcL AO Workflow SS Basophils/100 WBC (Bld) 0.5 % Invalid Interpretation Code 0.0 - 2.5 % AO Workflow SS Calcium [Mass/Vol] 9.3 mg/dL Invalid Interpretation Code 8.4 - 10.2 mg/dL AO ADM SS Chloride [Moles/Vol] 104 mmol/L Invalid Interpretation Code 98 - 107 mmol/L AO ADM SS CO2 [Moles/Vol] 35 mmol/L Invalid Interpretation Code 23 - 31 mmol/L AO ADM SS Creatinine [Mass/Vol] 1.47 mg/dL Invalid Interpretation Code 0.70 - 1.30 mg/dL AO ADM SS Electrolyte Balance 4.0 mEq/L Invalid Interpretation Code 4.0 - 15.0 mEq/L AO ADM SS Eosinophil, Absolute 0.1 103/mcL Invalid Interpretation Code 0.0 - 0.4 10^3/mcL AO Workflow SS Eosinophils/100 WBC (Bld) 1.5 % Invalid Interpretation Code 0.0 - 7.0 % AO Workflow SS Erythrocyte distribution width (RBC) [Ratio] 16.7 % Invalid Interpretation Code 11.5 - 14.5 % AO Workflow SS GFR/1.73 sq M.predicted among blacks MDRD (S/P/Bld) [Vol rate/Area] 58 ml/min/1.73sqm Invalid Interpretation Code AO Chemistry S Comment on above: Interpretive Data: GFR Population mean for , Non- Americans Ages 20-29 = 116 mL/min/1.73 sq.m. Ages 30-39 = 107 mL/min/1.73 sq.m. Ages 40-49 = 99 mL/min/1.73 sq.m. Ages 50-59 = 93 mL/min/1.73 sq.m. Ages 60-69 = 85 mL/min/1.73 sq.m. Ages 70+ = 75 mL/min/1.73 sq.m. Chronic Kidney Disease: Less than 60 mL/min/1.73 square meters End Stage Renal Disease: Less than 15 mL/min/1.73 square meters GFR/1.73 sq M.predicted among non-blacks MDRD (S/P/Bld) [Vol rate/Area] 48 ml/min/1.73sqm Invalid Interpretation Code AO Chemistry S Comment on above: Interpretive Data: GFR Population mean for , Non- Americans Ages 20-29 = 116 mL/min/1.73 sq.m. Ages 30-39 = 107 mL/min/1.73 sq.m. Ages 40-49 = 99 mL/min/1.73 sq.m. Ages 50-59 = 93 mL/min/1.73 sq.m. Ages 60-69 = 85 mL/min/1.73 sq.m. Ages 70+ = 75 mL/min/1.73 sq.m. Chronic Kidney Disease: Less than 60 mL/min/1.73 square meters End Stage Renal Disease: Less than 15 mL/min/1.73 square meters Glucose [Mass/Vol] 198 mg/dL Invalid Interpretation Code 80 - 115 mg/dL AO ADM SS Hematocrit (Bld) [Volume fraction] 40.5 % Invalid Interpretation Code 42.0 - 52.0 % AO Workflow SS Hemoglobin (Bld) [Mass/Vol] 13.2 G/dL Invalid Interpretation Code 14.0 - 18.0 G/dL AO Workflow SS Lymphocyte, Absolute 1.2 103/mcL Invalid Interpretation Code 0.8 - 3.9 10^3/mcL AO Workflow SS Lymphocytes/100 WBC (Bld) 18.3 % Invalid Interpretation Code 10.0 - 50.0 % AO Workflow SS MCH (RBC) [Entitic mass] 29.2 pg Invalid Interpretation Code 27.0 - 31.2 pg AO Workflow SS MCHC 32.6 G/dL Invalid Interpretation Code 31.8 - 35.4 G/dL AO Workflow SS MCV (RBC) [Entitic vol] 89.5 fL Invalid Interpretation Code 80.0 - 94.0 fL AO Workflow SS Monocyte, Absolute 0.7 103/mcL Invalid Interpretation Code 0.2 - 1.0 10^3/mcL AO Workflow SS Monocytes/100 WBC (Bld) 10.2 % Invalid Interpretation Code 1.7 - 13.0 % AO Workflow SS Neutrophil, Absolute 4.7 103/mcL Invalid Interpretation Code 2.9 - 6.2 10^3/mcL AO Workflow SS Neutrophils/100 WBC (Bld) 69.5 % Invalid Interpretation Code 37.0 - 80.0 % AO Workflow SS Platelet mean volume (Bld) [Entitic vol] 10.5 fL Invalid Interpretation Code 7.4 - 10.4 fL AO Workflow SS Platelets (Bld) [#/Vol] 157 103/mcL Invalid Interpretation Code 130 - 400 10^3/mcL AO Workflow SS Potassium [Moles/Vol] 4.8 mmol/L Invalid Interpretation Code 3.5 - 5.1 mmol/L AO ADM SS RBC (Bld) [#/Vol] 4.53 106/mcL Invalid Interpretation Code 4.04 - 6.13 10^6/mcL AO Workflow SS Sodium [Moles/Vol] 143 mmol/L Invalid Interpretation Code 136 - 145 mmol/L AO ADM SS Urea nitrogen [Mass/Vol] 24 mg/dL Invalid Interpretation Code 7 - 18 mg/dL AO ADM SS Urea nitrogen/Creatinine [Mass ratio] 16 ratio Invalid Interpretation Code 7 - 27 ratio AO ADM SS WBC (Bld) [#/Vol] 6.8 103/mcL Invalid Interpretation Code 4.6 - 10.8 10^3/mcL AO Workflow SS LABORATORYOrdered By: Gene Mercer on 03-08-2023 INR Coag (PPP) [Relative time] 1.1 {INR} Invalid Interpretation Code AO HemoHub SS Comment on above: Interpretive Data: Almaz gutierrez [place] [employer] (CHEST, 1992, 102:[id number]) recommended therapeutic range for oral anticoagulant therapy is: LOW RISK: Prophylaxis of venous thrombosis INR: 2.0-3.0 Treatment of pulmonary embolism 2.0-3.0 Prevention of systemic embolism 2.0-3.0 HIGH RISK: Mechanical prosthetic valves 2.5-3.5 PT Coag (PPP) [Time] 13.0 s Invalid Interpretation Code 9.0 - 14.2 seconds AO [facility] SS LABORATORYOrdered By: SYSTEM SYSTEM on 01-26-2023 Basophils (Bld) [#/Vol] 0.0 103/mcL Invalid Interpretation Code 0.0 - 0.3 10^3/mcL Workflow SS Basophils/100 WBC (Bld) 0.5 % Invalid Interpretation Code 0.0 - 2.5 % Workflow SS Calcium [Mass/Vol] 9.0 mg/dL Invalid Interpretation Code 8.7 - 10.4 mg/dL ADM SS Chloride [Moles/Vol] 106 mmol/L Invalid Interpretation Code 98 - 110 mEq/L ADM SS CO2 [Moles/Vol] 28 mmol/L Invalid Interpretation Code 22 - 32 mEq/L ADM SS Creatinine [Mass/Vol] 1.26 mg/dL Invalid Interpretation Code 0.60 - 1.40 mg/dL ADM SS Electrolyte Balance 7.0 mEq/L Invalid Interpretation Code 4.0 - 15.0 mEq/L ADM SS Eosinophils (Bld) [#/Vol] 0.1 103/mcL Invalid Interpretation Code 0.0 - 0.7 10^3/mcL Workflow SS Eosinophils/100 WBC (Bld) 1.2 % Invalid Interpretation Code 0.0 - 6.0 % Workflow SS Erythrocyte distribution width (RBC) [Ratio] 16.0 % Invalid Interpretation Code 11.5 - 15.5 % Workflow SS GFR/1.73 sq M.predicted among blacks MDRD (S/P/Bld) [Vol rate/Area] ml/min/1.73sqm Invalid Interpretation Code Chemistry S Comment on above: Interpretive Data: GFR Population mean for , Non- Americans Ages 20-29 = 116 mL/min/1.73 sq.m. Ages 30-39 = 107 mL/min/1.73 sq.m. Ages 40-49 = 99 mL/min/1.73 sq.m. Ages 50-59 = 93 mL/min/1.73 sq.m. Ages 60-69 = 85 mL/min/1.73 sq.m. Ages 70+ = 75 mL/min/1.73 sq.m. Chronic Kidney Disease: Less than 60 mL/min/1.73 square meters End Stage Renal Disease: Less than 15 mL/min/1.73 square meters GFR/1.73 sq M.predicted among non-blacks MDRD (S/P/Bld) [Vol rate/Area] 57 ml/min/1.73sqm Invalid Interpretation Code Chemistry S Comment on above: Interpretive Data: GFR Population mean for , Non- Americans Ages 20-29 = 116 mL/min/1.73 sq.m. Ages 30-39 = 107 mL/min/1.73 sq.m. Ages 40-49 = 99 mL/min/1.73 sq.m. Ages 50-59 = 93 mL/min/1.73 sq.m. Ages 60-69 = 85 mL/min/1.73 sq.m. Ages 70+ = 75 mL/min/1.73 sq.m. Chronic Kidney Disease: Less than 60 mL/min/1.73 square meters End Stage Renal Disease: Less than 15 mL/min/1.73 square meters Glucose [Mass/Vol] 165 mg/dL Invalid Interpretation Code 82 - 115 mg/dL ADM SS Hematocrit (Bld) [Volume fraction] 41.0 % Invalid Interpretation Code 40.0 - 52.0 % Workflow SS Hemoglobin (Bld) [Mass/Vol] 13.6 G/dL Invalid Interpretation Code 13.0 - 17.5 G/dL Workflow SS Lymphocytes (Bld) [#/Vol] 1.4 103/mcL Invalid Interpretation Code 0.9 - 4.3 10^3/mcL Workflow SS Lymphocytes/100 WBC (Bld) 20.6 % Invalid Interpretation Code 20.0 - 40.0 % Workflow SS MCH (RBC) [Entitic mass] 29.9 pg Invalid Interpretation Code 27.0 - 33.0 pg Workflow SS MCHC 33.2 G/dL Invalid Interpretation Code 32.0 - 36.0 G/dL Workflow SS MCV (RBC) [Entitic vol] 90.3 fL Invalid Interpretation Code 81.0 - 100.0 fL Workflow SS Monocytes (Bld) [#/Vol] 0.7 103/mcL Invalid Interpretation Code 0.1 - 1.4 10^3/mcL Workflow SS Monocytes/100 WBC (Bld) 10.3 % Invalid Interpretation Code 2.0 - 13.0 % AH Workflow SS Neutrophils (Bld) [#/Vol] 4.5 103/mcL Invalid Interpretation Code 2.3 - 8.1 10^3/mcL AH Workflow SS Neutrophils/100 WBC (Bld) 67.4 % Invalid Interpretation Code 50.0 - 75.0 % AH Workflow SS Platelet mean volume (Bld) [Entitic vol] 10.4 fL Invalid Interpretation Code 6.4 - 10.5 fL AH Workflow SS Platelets (Bld) [#/Vol] 135 103/mcL Invalid Interpretation Code 150 - 450 10^3/mcL AH Workflow SS Potassium [Moles/Vol] 4.6 mmol/L Invalid Interpretation Code 3.5 - 5.0 mEq/L AH ADM SS RBC (Bld) [#/Vol] 4.54 106/mcL Invalid Interpretation Code 4.50 - 6.00 10^6/mcL AH Workflow SS Sodium [Moles/Vol] 141 mmol/L Invalid Interpretation Code 136 - 145 mEq/L ADM SS Urea nitrogen [Mass/Vol] 28.0 mg/dL Invalid Interpretation Code 8.0 - 22.0 mg/dL ADM SS Urea nitrogen/Creatinine [Mass ratio] 22.2 ratio Invalid Interpretation Code 10.0 - 22.0 ratio AH ADM SS WBC (Bld) [#/Vol] 6.7 103/mcL Invalid Interpretation Code 4.5 - 10.8 10^3/mcL Workflow SS LABORATORYOrdered By: Loida Ann on 01-26-2023 INR Coag (PPP) [Relative time] 1.2 {INR} Invalid Interpretation Code Auto Coag SS Comment on above: Interpretive Data: T brenda [place] [employer] (CHEST, 1992, 102:[id number]) recommended therapeutic range for oral anticoagulant therapy is: LOW RISK: Prophylaxis of venous thrombosis INR: 2.0-3.0 Treatment of pulmonary embolism 2.0-3.0 Prevention of systemic embolism 2.0-3.0 HIGH RISK: Mechanical prosthetic valves 2.5-3.5 PT Coag (PPP) [Time] 13.8 s Invalid Interpretation Code 9.0 - 14.8 seconds Auto Coag SS Comment on above: Interpretive Data: E ffective 01/24/08, Protime results may be affected by some antibiotics (i.e. Ciprofloxacin, Azithromycin, Bactrim) which may potentiate the action of oral anticoagulants, with further increases in Protime/INR. LABORATORYOrdered By: SYSTEM SYSTEM on 01-20-2023 Natriuretic peptide.B prohormone N-Terminal [Mass/Vol] 375 pg/mL Invalid Interpretation Code 0 - 125 pg/mL AO ADM SS LABORATORYOrdered By: SYSTEM SYSTEM on 01-08-2023 Albumin BCP dye [Mass/Vol] 3.5 G/dL Invalid Interpretation Code 3.4 - 4.8 G/dL AO ADM SS Albumin/Globulin [Mass ratio] 1.1 {ratio} Invalid Interpretation Code 1.1 - 2.5 ratio AO ADM SS ALP [Catalytic activity/Vol] 96 U/L Invalid Interpretation Code 40 - 135 U/L AO ADM SS ALT With P-5'-P [Catalytic activity/Vol] 30 U/L Invalid Interpretation Code 16 - 63 U/L AO ADM SS AST With P-5'-P [Catalytic activity/Vol] 16 U/L Invalid Interpretation Code 10 - 40 U/L AO ADM SS Basophil, Absolute 0.1 103/mcL Invalid Interpretation Code 0.0 - 0.2 10^3/mcL AO Workflow SS Basophils/100 WBC (Bld) 0.8 % Invalid Interpretation Code 0.0 - 2.5 % AO Workflow SS Bilirubin [Mass/Vol] 0.4 mg/dL Invalid Interpretation Code 0.2 - 1.0 mg/dL AO ADM SS Calcium [Mass/Vol] 9.3 mg/dL Invalid Interpretation Code 8.4 - 10.2 mg/dL AO ADM SS Chloride [Moles/Vol] 104 mmol/L Invalid Interpretation Code 98 - 107 mmol/L AO ADM SS CO2 [Moles/Vol] 28 mmol/L Invalid Interpretation Code 23 - 31 mmol/L AO ADM SS Creatinine [Mass/Vol] 1.46 mg/dL Invalid Interpretation Code 0.70 - 1.30 mg/dL AO ADM SS Electrolyte Balance 8.0 mEq/L Invalid Interpretation Code 4.0 - 15.0 mEq/L AO ADM SS Eosinophil, Absolute 0.1 103/mcL Invalid Interpretation Code 0.0 - 0.4 10^3/mcL AO Workflow SS Eosinophils/100 WBC (Bld) 1.1 % Invalid Interpretation Code 0.0 - 7.0 % AO Workflow SS Erythrocyte distribution width (RBC) [Ratio] 16.0 % Invalid Interpretation Code 11.5 - 14.5 % AO Workflow SS GFR/1.73 sq M.predicted among blacks MDRD (S/P/Bld) [Vol rate/Area] 58 ml/min/1.73sqm Invalid Interpretation Code AO Chemistry S GFR/1.73 sq M.predicted among non-blacks MDRD (S/P/Bld) [Vol rate/Area] 48 ml/min/1.73sqm Invalid Interpretation Code AO Chemistry S Globulin 3.1 G/dL Invalid Interpretation Code AO ADM SS Glucose [Mass/Vol] 176 mg/dL Invalid Interpretation Code 80 - 115 mg/dL AO ADM SS Hematocrit (Bld) [Volume fraction] 41.6 % Invalid Interpretation Code 42.0 - 52.0 % AO Workflow SS Hemoglobin (Bld) [Mass/Vol] 13.6 G/dL Invalid Interpretation Code 14.0 - 18.0 G/dL AO Workflow SS Lymphocyte, Absolute 1.4 103/mcL Invalid Interpretation Code 0.8 - 3.9 10^3/mcL AO Workflow SS Lymphocytes/100 WBC (Bld) 15.4 % Invalid Interpretation Code 10.0 - 50.0 % AO Workflow SS MCH (RBC) [Entitic mass] 29.4 pg Invalid Interpretation Code 27.0 - 31.2 pg AO Workflow SS MCHC 32.7 G/dL Invalid Interpretation Code 31.8 - 35.4 G/dL AO Workflow SS MCV (RBC) [Entitic vol] 89.9 fL Invalid Interpretation Code 80.0 - 94.0 fL AO Workflow SS Monocyte, Absolute 0.9 103/mcL Invalid Interpretation Code 0.2 - 1.0 10^3/mcL AO Workflow SS Monocytes/100 WBC (Bld) 10.2 % Invalid Interpretation Code 1.7 - 13.0 % AO Workflow SS Neutrophil, Absolute 6.3 103/mcL Invalid Interpretation Code 2.9 - 6.2 10^3/mcL AO Workflow SS Neutrophils/100 WBC (Bld) 72.5 % Invalid Interpretation Code 37.0 - 80.0 % AO Workflow SS Platelet mean volume (Bld) [Entitic vol] 10.3 fL Invalid Interpretation Code 7.4 - 10.4 fL AO Workflow SS Platelets (Bld) [#/Vol] 163 103/mcL Invalid Interpretation Code 130 - 400 10^3/mcL AO Workflow SS Potassium [Moles/Vol] 5.0 mmol/L Invalid Interpretation Code 3.5 - 5.1 mmol/L AO ADM SS Prostate specific Ag [Mass/Vol] 4.16 ng/mL Invalid Interpretation Code 0.00 - 4.00 ng/mL AO ADM SS Protein [Mass/Vol] 6.6 G/dL Invalid Interpretation Code 6.4 - 8.2 G/dL AO ADM SS RBC (Bld) [#/Vol] 4.63 106/mcL Invalid Interpretation Code 4.04 - 6.13 10^6/mcL AO Workflow SS Sodium [Moles/Vol] 140 mmol/L Invalid Interpretation Code 136 - 145 mmol/L AO ADM SS Urea nitrogen [Mass/Vol] 23 mg/dL Invalid Interpretation Code 7 - 18 mg/dL AO ADM SS Urea nitrogen/Creatinine [Mass ratio] 16 ratio Invalid Interpretation Code 7 - 27 ratio AO ADM SS WBC (Bld) [#/Vol] 8.8 103/mcL Invalid Interpretation Code 4.6 - 10.8 10^3/mcL AO Workflow SS LABORATORYOrdered By: Liberty Manning on 01-08-2023 Cholesterol [Mass/Vol] 104 mg/dL Invalid Interpretation Code 0 - 200 mg/dL AO ADM SS Cholesterol in HDL [Mass/Vol] 42 mg/dL Invalid Interpretation Code 40 - 60 mg/dL AO ADM SS Cholesterol in LDL [Mass/Vol] 28 mg/dL Invalid Interpretation Code 0 - 130 mg/dL AO ADM SS Triglyceride [Mass/Vol] 172 mg/dL Invalid Interpretation Code 0 - 150 mg/dL AO ADM SS LABORATORYOrdered By: Rona Paredes on 05-12-2022 Calcium [Mass/Vol] 9.6 mg/dL Invalid Interpretation Code 8.4 - 10.2 mg/dL AO ADM SS Chloride [Moles/Vol] 104 mmol/L Invalid Interpretation Code 98 - 107 mmol/L AO ADM SS Cholesterol [Mass/Vol] 192 mg/dL Invalid Interpretation Code 0 - 200 mg/dL AO ADM SS Cholesterol in HDL [Mass/Vol] 41 mg/dL Invalid Interpretation Code 40 - 60 mg/dL AO ADM SS Cholesterol in LDL [Mass/Vol] 111 mg/dL Invalid Interpretation Code 0 - 130 mg/dL AO ADM SS CO2 [Moles/Vol] 28 mmol/L Invalid Interpretation Code 23 - 31 mmol/L AO ADM SS Creatinine [Mass/Vol] 1.27 mg/dL Invalid Interpretation Code 0.70 - 1.30 mg/dL AO ADM SS Electrolyte Balance 9.0 mEq/L Invalid Interpretation Code 4.0 - 15.0 mEq/L AO ADM SS Glucose [Mass/Vol] 152 mg/dL Invalid Interpretation Code 80 - 115 mg/dL AO ADM SS Potassium [Moles/Vol] 5.1 mmol/L Invalid Interpretation Code 3.5 - 5.1 mmol/L AO ADM SS Sodium [Moles/Vol] 141 mmol/L Invalid Interpretation Code 136 - 145 mmol/L AO ADM SS Triglyceride [Mass/Vol] 202 mg/dL Invalid Interpretation Code 0 - 150 mg/dL AO ADM SS Urea nitrogen [Mass/Vol] 22 mg/dL Invalid Interpretation Code 7 - 18 mg/dL AO ADM SS Urea nitrogen/Creatinine [Mass ratio] 17 ratio Invalid Interpretation Code 7 - 27 ratio AO ADM SS LABORATORYOrdered By: SYSTEM SYSTEM on 05-12-2022 GFR 69 ml/min/1.73sqm Invalid Interpretation Code AO Chemistry S GFR Non- 57 ml/min/1.73sqm Invalid Interpretation Code AO Chemistry S LABORATORYOrdered By: Erickson Killian on 05-12-2022 Natriuretic peptide.B prohormone N-Terminal [Mass/Vol] 321 pg/mL Invalid Interpretation Code 0 - 125 pg/mL AO ADM SS LABORATORYOrdered By: Gene Mercer on 11-25-2021 Basophil, Absolute 0.00 103/mcL Invalid Interpretation Code 0.00 - 0.19 10^3/mcL AO Auto Heme SS Basophils/100 WBC (Bld) 0.5 % Invalid Interpretation Code 0.0 - 2.5 % AO Auto Heme SS Eosinophil, Absolute 0.10 103/mcL Invalid Interpretation Code 0.00 - 0.40 10^3/mcL AO Auto Heme SS Eosinophils/100 WBC (Bld) 1.2 % Invalid Interpretation Code 0.0 - 7.0 % AO Auto Heme SS Erythrocyte distribution width (RBC) [Ratio] 16.8 % Invalid Interpretation Code 11.5 - 14.5 % AO Auto Heme SS Hematocrit (Bld) [Volume fraction] 43.0 % Invalid Interpretation Code 42.0 - 52.0 % AO Auto Heme SS Hemoglobin (Bld) [Mass/Vol] 13.8 G/dL Invalid Interpretation Code 14.0 - 18.0 G/dL AO Auto Heme SS Lymphocyte, Absolute 1.10 103/mcL Invalid Interpretation Code 0.77 - 3.85 10^3/mcL AO Auto Heme SS Lymphocytes/100 WBC (Bld) 19.5 % Invalid Interpretation Code 10.0 - 50.0 % AO Auto Heme SS MCH (RBC) [Entitic mass] 28.1 pg Invalid Interpretation Code 27.0 - 31.2 pg AO Auto Heme SS MCHC (RBC) [Mass/Vol] 32.0 G/dL Invalid Interpretation Code 31.8 - 35.4 G/dL AO Auto Heme SS MCV (RBC) [Entitic vol] 87.7 fL Invalid Interpretation Code 80.0 - 94.0 fL AO Auto Heme SS Monocyte, Absolute 0.50 103/mcL Invalid Interpretation Code 0.15 - 1.00 10^3/mcL AO Auto Heme SS Monocytes/100 WBC (Bld) 9.3 % Invalid Interpretation Code 1.7 - 13.0 % AO Auto Heme SS Neutrophil, Absolute 3.90 103/mcL Invalid Interpretation Code 2.85 - 6.16 10^3/mcL AO Auto Heme SS Neutrophils/100 WBC (Bld) 69.5 % Invalid Interpretation Code 37.0 - 80.0 % AO Auto Heme SS Platelet mean volume (Bld) [Entitic vol] 9.7 fL Invalid Interpretation Code 7.4 - 10.4 fL AO Auto Heme SS Platelets (Bld) [#/Vol] 140 103/mcL Invalid Interpretation Code 130 - 400 10^3/mcL AO Auto Heme SS RBC (Bld) [#/Vol] 4.90 106/mcL Invalid Interpretation Code 4.04 - 6.13 10^6/mcL AO Auto Heme SS WBC (Bld) [#/Vol] 5.50 103/mcL Invalid Interpretation Code 4.60 - 10.80 10^3/mcL AO Auto Heme SS LABORATORYOrdered By: Erickson Herr on 11-25-2021 Calcium [Mass/Vol] 9.0 mg/dL Invalid Interpretation Code 8.4 - 10.2 mg/dL AO ADM SS Chloride [Moles/Vol] 107 mmol/L Invalid Interpretation Code 98 - 107 mmol/L AO ADM SS CO2 [Moles/Vol] 24 mmol/L Invalid Interpretation Code 23 - 31 mmol/L AO ADM SS Creatinine [Mass/Vol] 1.19 mg/dL Invalid Interpretation Code 0.70 - 1.30 mg/dL AO ADM SS Electrolyte Balance 11.0 mEq/L Invalid Interpretation Code 4.0 - 15.0 mEq/L AO ADM SS Glucose [Mass/Vol] 178 mg/dL Invalid Interpretation Code 80 - 115 mg/dL AO ADM SS Potassium [Moles/Vol] 5.0 mmol/L Invalid Interpretation Code 3.5 - 5.1 mmol/L AO ADM SS Sodium [Moles/Vol] 142 mmol/L Invalid Interpretation Code 136 - 145 mmol/L AO ADM SS Urea nitrogen [Mass/Vol] 22 mg/dL Invalid Interpretation Code 7 - 18 mg/dL AO ADM SS Urea nitrogen/Creatinine [Mass ratio] 18 ratio Invalid Interpretation Code 7 - 27 ratio AO ADM SS LABORATORYOrdered By: SYSTEM SYSTEM on 11-25-2021 GFR 74 ml/min/1.73sqm Invalid Interpretation Code AO Chemistry S GFR Non- 61 ml/min/1.73sqm Invalid Interpretation Code AO Chemistry S LABORATORYOrdered By: Erickson Herr on 08-05-2021 Appearance (U) Clear (08/05/21 9:39 AM) Invalid Interpretation Code Clear AO Auto Urine SS Bacteria LM.HPF (Urine sed) [#/Area] Trace /HPF Invalid Interpretation Code AO Auto Urine SS Bilirubin Ql (U) Negative (08/05/21 9:39 AM) Invalid Interpretation Code Negative AO Auto Urine SS Color (U) Yellow (08/05/21 9:39 AM) Invalid Interpretation Code AO Auto Urine SS Glucose Test strip (U) [Mass/Vol] Negative Invalid Interpretation Code Negativemg/ dL AO Auto Urine SS Hemoglobin Auto test strip (U) [Mass/Vol] Negative (08/05/21 9:39 AM) Invalid Interpretation Code Negative AO Auto Urine SS Ketones Ql (U) Negative Invalid Interpretation Code Negativemg/ dL AO Auto Urine SS UA Leuk Est Negative (08/05/21 9:39 AM) Invalid Interpretation Code Negative AO Auto Urine SS UA Mucous Trace /HPF Invalid Interpretation Code AO Auto Urine SS UA Nitrite Negative (08/05/21 9:39 AM) Invalid Interpretation Code Negative AO Auto Urine SS UA pH 5.0 (08/05/21 9:39 AM) Invalid Interpretation Code 5.0 - 8.0 AO Auto Urine SS UA Protein Negative Invalid Interpretation Code Negativemg/ dL AO Auto Urine SS UA RBC 0-5 /HPF Invalid Interpretation Code None Seen/HPF AO Auto Urine SS UA Spec Grav >=1.030 *ABN* (08/05/21 9:39 AM) Invalid Interpretation Code 1.015-1.025 AO Auto Urine SS UA Specimen Type Void (08/05/21 9:39 AM) Invalid Interpretation Code AO Auto Urine SS UA Squam Epithelial 5-10 /HPF Invalid Interpretation Code None Seen/HPF AO Auto Urine SS UA Urobilinogen 0.2 E.U./dL Invalid Interpretation Code 0.2-1.0E.U. /dL AO Auto Urine SS WBC LM.HPF (Urine sed) [#/Area] 0-5 /HPF Invalid Interpretation Code None Seen/HPF AO Auto Urine SS LABORATORYOrdered By: Gene Mercer on 08-05-2021 Creatinine (U) [Mass/Vol] 183.9 mg/dL Invalid Interpretation Code 39.0 - 259.0 mg/dL AO ADM SS Protein (U) [Mass/Vol] 27 mg/dL Invalid Interpretation Code 0 - 11 mg/dL AO ADM SS U Ratio Prot/Creat 0.1 ratio Invalid Interpretation Code AO Chemistry S Calcium [Mass/Vol] 9.5 mg/dL Invalid Interpretation Code 8.4 - 10.2 mg/dL AO ADM SS Chloride [Moles/Vol] 104 mmol/L Invalid Interpretation Code 98 - 107 mmol/L AO ADM SS CO2 [Moles/Vol] 25 mmol/L Invalid Interpretation Code 23 - 31 mmol/L AO ADM SS Creatinine [Mass/Vol] 1.26 mg/dL Invalid Interpretation Code 0.70 - 1.30 mg/dL AO ADM SS Electrolyte Balance 10.0 mEq/L Invalid Interpretation Code 4.0 - 15.0 mEq/L AO ADM SS Glucose [Mass/Vol] 175 mg/dL Invalid Interpretation Code 80 - 115 mg/dL AO ADM SS Iron [Mass/Vol] 82 ug/dL Invalid Interpretation Code 65 - 175 mcg/dL AO ADM SS Iron binding capacity [Mass/Vol] 340 mcg/dL Invalid Interpretation Code 250 - 450 mcg/dL AO ADM SS Iron Sat 24 1 Invalid Interpretation Code AO ADM SS Potassium [Moles/Vol] 5.1 mmol/L Invalid Interpretation Code 3.5 - 5.1 mmol/L AO ADM SS Sodium [Moles/Vol] 139 mmol/L Invalid Interpretation Code 136 - 145 mmol/L AO ADM SS Urea nitrogen [Mass/Vol] 21 mg/dL Invalid Interpretation Code 7 - 18 mg/dL AO ADM SS Urea nitrogen/Creatinine [Mass ratio] 17 ratio Invalid Interpretation Code 7 - 27 ratio AO ADM SS Uric Acid Lvl 6.6 mg/dL Invalid Interpretation Code 3.5 - 7.2 mg/dL AO ADM SS Vit. D 25-Hydroxy 28.4 ng/mL Invalid Interpretation Code AO ADM SS LABORATORYOrdered By: Liberty Manning on 08-05-2021 Basophil, Absolute 0.00 103/mcL Invalid Interpretation Code 0.00 - 0.19 10^3/mcL AO Auto Heme SS Basophils/100 WBC (Bld) 0.4 % Invalid Interpretation Code 0.0 - 2.5 % AO Auto Heme SS Eosinophil, Absolute 0.10 103/mcL Invalid Interpretation Code 0.00 - 0.40 10^3/mcL AO Auto Heme SS Eosinophils/100 WBC (Bld) 1.3 % Invalid Interpretation Code 0.0 - 7.0 % AO Auto Heme SS Erythrocyte distribution width (RBC) [Ratio] 16.1 % Invalid Interpretation Code 11.5 - 14.5 % AO Auto Heme SS Hematocrit (Bld) [Volume fraction] 39.6 % Invalid Interpretation Code 42.0 - 52.0 % AO Auto Heme SS Hemoglobin (Bld) [Mass/Vol] 13.3 G/dL Invalid Interpretation Code 14.0 - 18.0 G/dL AO Auto Heme SS Lymphocyte, Absolute 1.00 103/mcL Invalid Interpretation Code 0.77 - 3.85 10^3/mcL AO Auto Heme SS Lymphocytes/100 WBC (Bld) 23.2 % Invalid Interpretation Code 10.0 - 50.0 % AO Auto Heme SS MCH (RBC) [Entitic mass] 29.1 pg Invalid Interpretation Code 27.0 - 31.2 pg AO Auto Heme SS MCHC (RBC) [Mass/Vol] 33.6 G/dL Invalid Interpretation Code 31.8 - 35.4 G/dL AO Auto Heme SS MCV (RBC) [Entitic vol] 86.6 fL Invalid Interpretation Code 80.0 - 94.0 fL AO Auto Heme SS Monocyte, Absolute 0.50 103/mcL Invalid Interpretation Code 0.15 - 1.00 10^3/mcL AO Auto Heme SS Monocytes/100 WBC (Bld) 13.2 % Invalid Interpretation Code 1.7 - 13.0 % AO Auto Heme SS Neutrophil, Absolute 2.50 103/mcL Invalid Interpretation Code 2.85 - 6.16 10^3/mcL AO Auto Heme SS Neutrophils/100 WBC (Bld) 61.9 % Invalid Interpretation Code 37.0 - 80.0 % AO Auto Heme SS Platelet mean volume (Bld) [Entitic vol] 9.9 fL Invalid Interpretation Code 7.4 - 10.4 fL AO Auto Heme SS Platelets (Bld) [#/Vol] 169 103/mcL Invalid Interpretation Code 130 - 400 10^3/mcL AO Auto Heme SS RBC (Bld) [#/Vol] 4.57 106/mcL Invalid Interpretation Code 4.04 - 6.13 10^6/mcL AO Auto Heme SS WBC (Bld) [#/Vol] 4.10 103/mcL Invalid Interpretation Code 4.60 - 10.80 10^3/mcL AO Auto Heme SS LABORATORYOrdered By: SYSTEM SYSTEM on 08-05-2021 Ferritin [Mass/Vol] 164.6 ng/mL Invalid Interpretation Code 26.0 - 388.0 ng/mL ADM SS GFR 69 ml/min/1.73sqm Invalid Interpretation Code AO Chemistry S GFR Non- 57 ml/min/1.73sqm Invalid Interpretation Code AO Chemistry S Parathyrin.intact [Mass/Vol] 62.1 pg/mL Invalid Interpretation Code 18.5 - 88.0 pg/mL ADM SS LABORATORYOrdered By: Stephanie Soria on 08-05-2021 Protein [Mass/Vol] 6.6 G/dL Invalid Interpretation Code 5.7 - 8.2 G/dL ADM SS LABORATORYOrdered By: Erickson Herr on 06-24-2021 Creatinine [Mass/Vol] 1.40 mg/dL Invalid Interpretation Code 0.70 - 1.30 mg/dL AO ADM SS LABORATORYOrdered By: SYSTEM SYSTEM on 06-24-2021 GFR 61 ml/min/1.73sqm Invalid Interpretation Code AO Chemistry S GFR Non- 51 ml/min/1.73sqm Invalid Interpretation Code AO Chemistry S No Panel Informationon 06-23 Culture Wound Aerobe Light normal zay for site present. Sensitivity testing not indicated. [facility] Work Phone: GS 3+ Gram Negative Jerald s 2+ Polymorphonuclear cells Rare Mononuclear cells 2+ Gram Positive [facility] Work Phone: LABORATORYOrdered By: Liberty Manning on 06-06-2021 Basophil, Absolute 0.00 103/mcL Invalid Interpretation Code 0.00 - 0.19 10^3/mcL AO Auto Heme SS Basophils/100 WBC (Bld) 0.7 % Invalid Interpretation Code 0.0 - 2.5 % AO Auto Heme SS Eosinophil, Absolute 0.10 103/mcL Invalid Interpretation Code 0.00 - 0.40 10^3/mcL AO Auto Heme SS Eosinophils/100 WBC (Bld) 1.7 % Invalid Interpretation Code 0.0 - 7.0 % AO Auto Heme SS Erythrocyte distribution width (RBC) [Ratio] 15.8 % Invalid Interpretation Code 11.5 - 14.5 % AO Auto Heme SS Hematocrit (Bld) [Volume fraction] 41.9 % Invalid Interpretation Code 42.0 - 52.0 % AO Auto Heme SS Hemoglobin (Bld) [Mass/Vol] 13.9 G/dL Invalid Interpretation Code 14.0 - 18.0 G/dL AO Auto Heme SS Lymphocyte, Absolute 1.50 103/mcL Invalid Interpretation Code 0.77 - 3.85 10^3/mcL AO Auto Heme SS Lymphocytes/100 WBC (Bld) 29.5 % Invalid Interpretation Code 10.0 - 50.0 % AO Auto Heme SS MCH (RBC) [Entitic mass] 29.7 pg Invalid Interpretation Code 27.0 - 31.2 pg AO Auto Heme SS MCHC (RBC) [Mass/Vol] 33.0 G/dL Invalid Interpretation Code 31.8 - 35.4 G/dL AO Auto Heme SS MCV (RBC) [Entitic vol] 89.9 fL Invalid Interpretation Code 80.0 - 94.0 fL AO Auto Heme SS Monocyte, Absolute 0.70 103/mcL Invalid Interpretation Code 0.15 - 1.00 10^3/mcL AO Auto Heme SS Monocytes/100 WBC (Bld) 13.6 % Invalid Interpretation Code 1.7 - 13.0 % AO Auto Heme SS Neutrophil, Absolute 2.80 103/mcL Invalid Interpretation Code 2.85 - 6.16 10^3/mcL AO Auto Heme SS Neutrophils/100 WBC (Bld) 54.5 % Invalid Interpretation Code 37.0 - 80.0 % AO Auto Heme SS Platelet mean volume (Bld) [Entitic vol] 10.7 fL Invalid Interpretation Code 7.4 - 10.4 fL AO Auto Heme SS Platelets (Bld) [#/Vol] 175 103/mcL Invalid Interpretation Code 130 - 400 10^3/mcL AO Auto Heme SS RBC (Bld) [#/Vol] 4.66 106/mcL Invalid Interpretation Code 4.04 - 6.13 10^6/mcL AO Auto Heme SS WBC (Bld) [#/Vol] 5.10 103/mcL Invalid Interpretation Code 4.60 - 10.80 10^3/mcL AO Auto Heme SS LABORATORYOrdered By: Erickson Herr on 06-06-2021 Calcium [Mass/Vol] 9.6 mg/dL Invalid Interpretation Code 8.4 - 10.2 mg/dL AO ADM SS Chloride [Moles/Vol] 105 mmol/L Invalid Interpretation Code 98 - 107 mmol/L AO ADM SS CO2 [Moles/Vol] 31 mmol/L Invalid Interpretation Code 23 - 31 mmol/L AO ADM SS Creatinine [Mass/Vol] 1.49 mg/dL Invalid Interpretation Code 0.70 - 1.30 mg/dL AO ADM SS Electrolyte Balance 7.0 mEq/L Invalid Interpretation Code AO ADM SS Glucose [Mass/Vol] 119 mg/dL Invalid Interpretation Code 80 - 115 mg/dL AO ADM SS Potassium [Moles/Vol] 5.1 mmol/L Invalid Interpretation Code 3.5 - 5.1 mmol/L AO ADM SS Sodium [Moles/Vol] 143 mmol/L Invalid Interpretation Code 136 - 145 mmol/L AO ADM SS Urea nitrogen [Mass/Vol] 28 mg/dL Invalid Interpretation Code 7 - 18 mg/dL AO ADM SS Urea nitrogen/Creatinine [Mass ratio] 19 ratio Invalid Interpretation Code 7 - 27 ratio AO ADM SS LABORATORYOrdered By: SYSTEM SYSTEM on 06-06-2021 GFR 57 ml/min/1.73sqm Invalid Interpretation Code AO Chemistry S GFR Non- 47 ml/min/1.73sqm Invalid Interpretation Code AO Chemistry S Otheron 03-29-2012 CONVERTED CLINICAL HISTORY OPERATIVE PROCEDURE: Excision right groin cyst, excision left cranial mass CLINICAL INFORMATION: Rt groin cyst [facility] CONVERTED ELECTRONIC SIGNATURE SHYAM MCCAIN M.D., PATHOLOGIST (Electronic signature on file) Final Signed Out: 03/29/2012 15:22 [facility] CONVERTED FINAL DIAGNOSIS FINAL DIAGNOSIS: A) LESION OF RIGHT GROIN, EXCISION - RUPTURED EPIDERMAL INCLUSION CYST WITH ASSOCIATED ACUTE AND CHRONIC INFLAMMATION AND FOREIGN BODY GIANT CELL REACTION. BENIGN CAPILLARY HEMANGIOMA. B) LESION OF LEFT SCALP, EXCISION - INTRADERMAL NEVUS. SPECIMEN: (A) GROIN (B) SCALP [facility] CONVERTED GROSS DESCRIPTION GROSS DESCRIPTION: Cyst of rt groin A) Received in formalin in a container labeled cyst of groin is a 2.4 x 1 cm vincent skin ellipse with deep soft extending to 2 cm. The specimen is inked black. Sectioning reveals a 0.2 cm in greatest dimension hemorrhagic focus which is 0.2 cm deep to the skin. No definite cyst is identified. Log Chipper Operator sections are submitted in cassettes A1 through A4 with A1 containing tissue from both tips and A3&A4 containing the hemorrhagic focus. Lt scalp cranial mass B) Received in formalin in a container labeled left cranial mass is a 1.3 x 0.7 x 0.7 cm vincent pearly nodule which is focally hair bearing. This appears to be on the surface of a 1.1 x 0.9 cm vincent skin ellipse. Sectioning reveals the nodule to be firm, homogenous, vincent nodule. The specimen is serially sectioned and entirely submitted in cassettes B1&B2 with the tips in B1. SLL/gpl MICROSCOPIC DESCRIPTION: Slides reviewed. PSB/gpl [facility] CONVERTED ORDERING PROVIDER Ordering Provider: ELDA WALL [facility] Othernoreen 07-15-2011 CONVERTED CLINICAL HISTORY OPERATIVE PROCEDURE: Hernia repair, inguinal/fem/spigelian SBR & repair of ing hernia with permacol mesh CLINICAL INFORMATION: Incarcerated rt ing hernia [facility] CONVERTED ELECTRONIC SIGNATURE ANIL GONSALEZ M.D. (Electronic signature on file) Final Signed Out: 07/15/2011 16:04 [facility] CONVERTED FINAL DIAGNOSIS FINAL DIAGNOSIS: SMALL BOWEL SEGMENT (INCARCERATED RIGHT INGUINAL HERNIA) - TRANSMURAL HEMORRHAGE AND EDEMA WITH FOCAL MUCOSAL ULCERATION AND ACUTE INFLAMMATION. SPECIMEN: SMALL BOWEL [facility] CONVERTED GROSS DESCRIPTION GROSS DESCRIPTION: Small bowel Container labeled small bowel. Received is an unoriented unopened segment of small bowel measuring 18 cm in length x 4 cm in diameter. The serosal surface is dusky, grayish-red with focal adhesions. When opened, the bowel is filled with hemorrhagic material. The mucosa is dusky, hemorrhagic. No discrete or suspicious lesion is identified. Both resection margins appear viable. The resection margins are separately submitted in cassettes 1 and 2, sample of the hemorrhagic bowel is submitted in cassettes 3 through 5. SMS/lrs MICROSCOPIC DESCRIPTION: Slides reviewed. EAC/lrs [facility] CONVERTED ORDERING PROVIDER Ordering Provider: ELDA WALL [facility] Vital Signs Date Time Vital Sign Value Performing Clinician Facility 01-24-2025 09:48-0400 Body temperature 96.7 [degF] Dr. Kathleen Herzog MD [facility] 01-24-2025 09:48-0400 Diastolic blood pressure 71 mm[Hg] Dr. Kathleen Herzog MD [facility] 01-24-2025 09:48-0400 Heart rate 56 /min Dr. Kathleen Herzog MD [facility] 01-24-2025 09:48-0400 Respiratory rate 16 /min Dr. Kathleen Herzog MD [facility] 01-24-2025 09:48-0400 Systolic blood pressure 135 mm[Hg] Dr. Kathleen Herzog MD [facility] 01-06-2025 16:00-0400 Body temperature 97.9 [degF] Dr. Juan Cunha DO Work Phone: 0(931)351-096371 [place] [address] 01-06-2025 16:00-0400 Diastolic blood pressure 82 mm[Hg] Dr. Juan Cunha DO Work Phone: 9(885)960-878371 [place] [address] 01-06-2025 16:00-0400 Heart rate 71 /min Dr. Juan Cunha DO Work Phone: 5(031)081-857171 [place] [address] 01-06-2025 16:00-0400 Respiratory rate 16 /min Dr. Juan Cunha DO Work Phone: 3(307)779-441571 [place] [address] 01-06-2025 16:00-0400 SaO2% (BldA) [Mass fraction] 100 % Dr. Juan Cunha DO Work Phone: 0(792)071-385571 [place] [address] 01-06-2025 16:00-0400 Systolic blood pressure 122 mm[Hg] Dr. Juan Cunha DO Work Phone: 3(518)295-172371 [place] [address] 01-06-2025 10:08-0400 Body height 187.[address] Remus Ungur DO Work Phone: 4(188)598-673126 [place] [address] 01-06-2025 10:08-0400 Body weight 113.[address] Juan Cunha DO Work Phone: 2(412)438-976026 [place] [address] 01-05-2025 16:33-0400 Body mass index (BMI) [Ratio] 32 kg/m2 Dr. Juan Cunha DO Work Phone: 4(826)351-674126 [place] [address] 01-05-2025 16:05-0400 Body temperature 98.2 [degF] Dr. Juan Cunha DO Work Phone: 9(624)921-568426 [place] [address] 01-05-2025 16:05-0400 Diastolic blood pressure 74 mm[Hg] Dr. Juan Cunha DO Work Phone: 4(477)744-482726 [place] [address] 01-05-2025 16:05-0400 Heart rate 55 /min Dr. Juan Cunha DO Work Phone: 9(279)784-875826 [place] [address] 01-05-2025 16:05-0400 Respiratory rate 18 /min Dr. Juan Cunha DO Work Phone: 6(040)539-453126 [place] [address] 01-05-2025 16:05-0400 SaO2% (BldA) [Mass fraction] 97 % Dr. Juan Cunha DO Work Phone: 2(970)427-626126 [place] [address] 01-05-2025 16:05-0400 Systolic blood pressure 165 mm[Hg] Dr. Juan Cunha DO Work Phone: 7(313)084-237426 [place] [address] 01-05-2025 08:19-0400 Body height 175.[address] Juan Cunha DO Work Phone: 2(873)635-363826 [place] [address] 01-03-2025 09:51-0400 Body mass index (BMI) [Ratio] 44.6 kg/m2 Dr. Juan Cunha DO Work Phone: 4(085)902-339926 [place] [address] 01-03-2025 09:51-0400 Body temperature 98.7 [degF] Dr. Juan Cunha DO Work Phone: 3(837)235-304426 [place] [address] 01-03-2025 09:51-0400 Diastolic blood pressure 66 mm[Hg] Dr. Juan Cunha DO Work Phone: [facility] 01-03-2025 09:51-0400 Heart rate 68 /min Dr. Juan Cunha DO Work Phone: [facility] 01-03-2025 09:51-0400 Respiratory rate 16 /min Dr. Juan Cunha DO Work Phone: [facility] 01-03-2025 09:51-0400 Systolic blood pressure 119 mm[Hg] Dr. Juan Cunha DO Work Phone: [facility] 12-10-2024 00:19-0400 Body weight 157.[address] Juan Cunha DO Work Phone: [facility] 11-29-2024 09:38-0400 Body mass index (BMI) [Ratio] 44.6 kg/m2 Dr. Moshe Kitchen MD Work Phone: [facility] 11-29-2024 09:38-0400 Body temperature 97.8 [degF] Dr. Moshe Kitchen MD Work Phone: [facility] 11-29-2024 09:38-0400 Diastolic blood pressure 67 mm[Hg] Dr. Moshe Kitchen MD Work Phone: [facility] 11-29-2024 09:38-0400 Heart rate 56 /min Dr. Moshe Kitchen MD Work Phone: [facility] 11-29-2024 09:38-0400 Respiratory rate 18 /min Dr. Moshe Kitchen MD Work Phone: [facility] 11-29-2024 09:38-0400 Systolic blood pressure 127 mm[Hg] Dr. Moshe Kitchen MD Work Phone: [facility] 11-09-2024 00:40-0400 Body height 187.[address] Moshe Kitchen MD Work Phone: [facility] 11-09-2024 00:40-0400 Body weight 157.[address] Moshe Kitchen MD Work Phone: [facility] 11-08-2024 10:09-0400 Body mass index (BMI) [Ratio] 44.6 kg/m2 Dr. Moshe Kitchen MD Work Phone: [facility] 11-08-2024 10:09-0400 Body temperature 98.7 [degF] Dr. Moshe Kitchen MD Work Phone: [facility] 11-08-2024 10:09-0400 Diastolic blood pressure 71 mm[Hg] Dr. Moshe Kitchen MD Work Phone: [facility] 11-08-2024 10:09-0400 Heart rate 57 /min Dr. Moshe Kitchen MD Work Phone: [facility] 11-08-2024 10:09-0400 Respiratory rate 18 /min Dr. Moshe Kitchen MD Work Phone: [facility] 11-08-2024 10:09-0400 Systolic blood pressure 137 mm[Hg] Dr. Moshe Kitchen MD Work Phone: [facility] 10-18-2024 20:50-0400 Inhaled oxygen flow rate 2 L/min Dr. Moshe Kitchen MD Work Phone: [facility] 10-18-2024 20:48-0400 Body temperature 98.7 [degF] Dr. Moshe Kitchen MD Work Phone: [facility] 10-18-2024 20:48-0400 Diastolic blood pressure 72 mm[Hg] Dr. Moshe Kitchen MD Work Phone: [facility] 10-18-2024 20:48-0400 Heart rate 87 /min Dr. Moshe Kitchen MD Work Phone: [facility] 10-18-2024 20:48-0400 Respiratory rate 16 /min Dr. Moshe Kitchen MD Work Phone: [facility] 10-18-2024 20:48-0400 SaO2% (BldA) [Mass fraction] 96 % Dr. Moshe Kitchen MD Work Phone: [facility] 10-18-2024 20:48-0400 Systolic blood pressure 138 mm[Hg] Dr. Moshe Kitchen MD Work Phone: [facility] 10-16-2024 13:35-0400 Body height 175.[address] Moshe Kitchen MD Work Phone: [facility] 10-16-2024 13:35-0400 Body weight 134.[address] Moshe Kitchen MD Work Phone: [facility] 10-13-2024 15:15-0400 Body mass index (BMI) [Ratio] 44 kg/m2 Dr. Moshe Kitchen MD Work Phone: [facility] 10-13-2024 14:12-0400 Body temperature 98.7 [degF] Dr. Moshe Kitchen MD Work Phone: 5(724)455-649694 [place] [address] 10-13-2024 14:12-0400 Diastolic blood pressure 58 mm[Hg] Dr. Moshe Kitchen MD Work Phone: 1(531)237-762094 [place] [address] 10-13-2024 14:12-0400 Heart rate 59 /min Dr. Moshe Kitchen MD Work Phone: [facility] 10-13-2024 14:12-0400 Respiratory rate 17 /min Dr. Moshe Kitchen MD Work Phone: [facility] 10-13-2024 14:12-0400 SaO2% (BldA) [Mass fraction] 98 % Dr. Moshe Kitchen MD Work Phone: [facility] 10-13-2024 14:12-0400 Systolic blood pressure 128 mm[Hg] Dr. Moshe Kitchen MD Work Phone: [facility] 10-13-2024 11:49-0400 Body height 175.[address] Moshe Kitchen MD Work Phone: [facility] 10-13-2024 11:49-0400 Body mass index (BMI) [Ratio] 43.9 kg/m2 Dr. Moshe Kitchen MD Work Phone: [facility] 10-13-2024 11:49-0400 Body weight 134.[address] Moshe Kitchen MD Work Phone: [facility] 10-12-2024 12:58-0400 Body temperature 97.9 [degF] Dr. Moshe Kitchen MD Work Phone: [facility] 10-12-2024 12:58-0400 Diastolic blood pressure 68 mm[Hg] Dr. Moshe Kitchen MD Work Phone: 3(791)027-744294 [place] [address] 10-12-2024 12:58-0400 Heart rate 68 /min Dr. Moshe Kitchen MD Work Phone: 3(806)210-713594 [place] [address] 10-12-2024 12:58-0400 Respiratory rate 20 /min Dr. Moshe Kitchen MD Work Phone: 9(283)613-133994 [place] [address] 10-12-2024 12:58-0400 SaO2% (BldA) [Mass fraction] 95 % Dr. Moshe Kitchen MD Work Phone: [facility] 10-12-2024 12:58-0400 Systolic blood pressure 133 mm[Hg] Dr. Moshe Kitchen MD Work Phone: [facility] 10-11-2024 10:33-0400 Body height 175.[address] Moshe Kitchen MD Work Phone: [facility] 10-11-2024 10:33-0400 Body weight 130.[address] Moshe Kitchen MD Work Phone: [facility] 10-11-2024 02:51-0400 Inhaled oxygen concentration 21 % Dr. Moshe Kitchen MD Work Phone: [facility] 10-10-2024 19:01-0400 Body mass index (BMI) [Ratio] 42.4 kg/m2 Dr. Moshe Kitchen MD Work Phone: [facility] 10-10-2024 18:00-0400 Diastolic blood pressure 74 mm[Hg] Dr. Moshe Kitchen MD Work Phone: [facility] 10-10-2024 18:00-0400 Heart rate 93 /min Dr. Moshe Kitchen MD Work Phone: [facility] 10-10-2024 18:00-0400 Inhaled oxygen flow rate 2 L/min Dr. Moshe Kitchen MD Work Phone: [facility] 10-10-2024 18:00-0400 Respiratory rate 26 /min Dr. Moshe Kitchen MD Work Phone: [facility] 10-10-2024 18:00-0400 SaO2% (BldA) [Mass fraction] 94 % Dr. Moshe Kitchen MD Work Phone: [facility] 10-10-2024 18:00-0400 Systolic blood pressure 131 mm[Hg] Dr. Moshe Kitchen MD Work Phone: [facility] 10-10-2024 17:25-0400 Body temperature 101.6 [degF] Dr. Moshe Kitchen MD Work Phone: [facility] 10-10-2024 15:24-0400 Body height 175.[address] Moshe Kitchen MD Work Phone: [facility] 10-10-2024 15:24-0400 Body mass index (BMI) [Ratio] 42.4 kg/m2 Dr. Moshe Kitchen MD Work Phone: [facility] 10-10-2024 15:24-0400 Body weight 130.[address] Moshe Kitchen MD Work Phone: [facility] 10-10-2024 00:55-0400 Body weight 157.[address] Moshe Kitchen MD Work Phone: [facility] 09-27-2024 08:56-0400 Body mass index (BMI) [Ratio] 44.6 kg/m2 Dr. Moshe Kitchen MD Work Phone: [facility] 09-27-2024 08:56-0400 Body temperature 98.1 [degF] Dr. Moshe Kitchen MD Work Phone: [facility] 09-27-2024 08:56-0400 Diastolic blood pressure 72 mm[Hg] Dr. Moshe Kitchen MD Work Phone: [facility] 09-27-2024 08:56-0400 Heart rate 58 /min Dr. Moshe Kitchen MD Work Phone: [facility] 09-27-2024 08:56-0400 Respiratory rate 16 /min Dr. Moshe Kitchen MD Work Phone: [facility] 09-27-2024 08:56-0400 Systolic blood pressure 165 mm[Hg] Dr. Moshe Kitchen MD Work Phone: [facility] 09-22-2024 09:26-0400 Diastolic blood pressure 66 mm[Hg] Isabela Piccari ORDERLIES TEACHER.GAS PROVER Work Phone: [facility] 09-22-2024 09:26-0400 Heart rate 56 /min Isabela Piccari ORDERLIES TEACHER.GAS PROVER Work Phone: [facility] 09-22-2024 09:26-0400 SaO2% (BldA) [Mass fraction] 99 % Isabela Piccari ORDERLIES TEACHER.GAS PROVER Work Phone: [facility] 09-22-2024 09:26-0400 Systolic blood pressure 134 mm[Hg] Isabela Piccari ORDERLIES TEACHER.GAS PROVER Work Phone: [facility] 09-17-2024 01:00-0500 Diastolic blood pressure 70 mm[Hg] Dr. Ignacia Reyna DO Work Phone: [facility] 09-17-2024 01:00-0500 Heart rate 57 /min Dr. Ignacia Reyna DO Work Phone: [facility] 09-17-2024 01:00-0500 Respiratory rate 17 /min Dr. Ignacia Reyna DO Work Phone: [facility] 09-17-2024 01:00-0500 SaO2% (BldA) [Mass fraction] 95 % Dr. Ignacia Reyna DO Work Phone: [facility] 09-17-2024 01:00-0500 Systolic blood pressure 146 mm[Hg] Dr. Ignacia Reyna DO Work Phone: [facility] 09-17-2024 00:30-0500 Body temperature 96 [degF] Dr. Ignacia Reyna DO Work Phone: [facility] 09-16-2024 19:54-0500 Body height 175.[address] Ignacia Reyna DO Work Phone: [facility] 09-16-2024 19:54-0500 Body mass index (BMI) [Ratio] 42.5 kg/m2 Dr. Ignacia Reyna DO Work Phone: [facility] 09-16-2024 19:54-0500 Body weight 130.[address] Ignacia Reyna DO Work Phone: [facility] 09-13-2024 08:39-0500 Body mass index (BMI) [Ratio] 44.6 kg/m2 Dr. Ignacia Reyna DO Work Phone: [facility] 09-13-2024 08:39-0500 Body temperature 97.1 [degF] Dr. Ignacia Reyna DO Work Phone: [facility] 09-13-2024 08:39-0500 Diastolic blood pressure 59 mm[Hg] Dr. Ignacia Reyna DO Work Phone: [facility] 09-13-2024 08:39-0500 Heart rate 58 /min Dr. Ignacia Reyna DO Work Phone: [facility] 09-13-2024 08:39-0500 Respiratory rate 15 /min Dr. Ignacia Reyna DO Work Phone: [facility] [facility] 09-13-2024 08:39-0500 Systolic blood pressure 152 mm[Hg] Dr. Ignacia Reyna DO Work Phone: [facility] 09-09-2024 02:27-0500 Body weight 157.[address] Ignacia Reyna DO Work Phone: [facility] 08-30-2024 08:36-0500 Body mass index (BMI) [Ratio] 44.6 kg/m2 Dr. Ignacia Reyna DO Work Phone: [facility] 08-30-2024 08:36-0500 Body temperature 97.7 [degF] Dr. Ignacia Reyna DO Work Phone: [facility] 08-30-2024 08:36-0500 Diastolic blood pressure 80 mm[Hg] Dr. Ignacia Reyna DO Work Phone: [facility] 08-30-2024 08:36-0500 Heart rate 66 /min Dr. Ignacia Reyna DO Work Phone: [facility] 08-30-2024 08:36-0500 Respiratory rate 18 /min Dr. Ignacia Reyna DO Work Phone: [facility] 08-30-2024 08:36-0500 Systolic blood pressure 148 mm[Hg] Dr. Ignacia Reyna DO Work Phone: [facility] 08-12-2024 02:17-0500 Body weight 157.[address] Ignacia Reyna DO Work Phone: [facility] 07-29-2024 02:31-0500 Heart rate 65 /min DANIE DURCHARLEENKA DO [facility] 07-29-2024 02:31-0500 Respiratory rate 18 /min DANIE DURESKA DO [facility] 07-28-2024 18:41-0500 Diastolic Blood Pressure Non-Invasive 71 mm[Hg] DANIE DURESKA DO [facility] 07-28-2024 18:41-0500 Heart rate 60 /min DANIE DURESKA DO [facility] 07-28-2024 18:41-0500 Respiratory rate 18 /min DANIE DURESKA DO [facility] 07-28-2024 18:41-0500 Systolic Blood Pressure Non-Invasive 166 mm[Hg] DANIE SINESKA DO [facility] 07-28-2024 15:32-0500 Body temperature 97.34 [degF] DANIE SINESKA DO [facility] 07-28-2024 15:32-0500 Body weight 122.7 kg DANIE SINESKA DO [facility] 07-28-2024 15:32-0500 Diastolic Blood Pressure Non-Invasive 75 mm[Hg] DANIE SINESKA DO [facility] 07-28-2024 15:32-0500 Heart rate 64 /min DANIE JANSENKA DO [facility] 07-28-2024 15:32-0500 Respiratory rate 18 /min DANIE ESQUEDA DO [facility] 07-28-2024 15:32-0500 Systolic Blood Pressure Non-Invasive 177 mm[Hg] DANIE ESQUEDA DO [facility] 07-26-2024 08:58-0500 Body mass index (BMI) [Ratio] 44.6 kg/m2 Dr. Ignacia Reyna DO Work Phone: [facility] 07-26-2024 08:58-0500 Body temperature 97 [degF] Dr. Ignacia Reyna DO Work Phone: [facility] 07-26-2024 08:58-0500 Diastolic blood pressure 66 mm[Hg] Dr. Ignacia Reyna DO Work Phone: [facility] 07-26-2024 08:58-0500 Heart rate 60 /min Dr. Ignacia Reyna DO Work Phone: [facility] 07-26-2024 08:58-0500 Respiratory rate 18 /min Dr. Ignacia Reyna DO Work Phone: [facility] 07-26-2024 08:58-0500 Systolic blood pressure 115 mm[Hg] Dr. Ignacia Reyna DO Work Phone: [facility] 07-12-2024 00:43-0500 Body weight 157.[address] Ignacia Reyna DO Work Phone: [facility] 07-11-2024 08:18-0500 Body mass index (BMI) [Ratio] 44.6 kg/m2 Dr. Ignacia Reyna DO Work Phone: [facility] 07-11-2024 08:18-0500 Diastolic blood pressure 62 mm[Hg] Dr. Ignacia Reyna DO Work Phone: [facility] 07-11-2024 08:18-0500 Heart rate 61 /min Dr. Ignacia Reyna DO Work Phone: [facility] 07-11-2024 08:18-0500 Respiratory rate 16 /min Dr. Ignacia Reyna DO Work Phone: [facility] 07-11-2024 08:18-0500 Systolic blood pressure 115 mm[Hg] Dr. Ignacia Reyna DO Work Phone: [facility] 07-04-2024 08:10-0500 Body temperature 97 [degF] Dr. Ignacia Reyna DO Work Phone: [facility] 06-11-2024 00:42-0500 Body weight 157.[address] Ignacia Reyna DO Work Phone: [facility] 06-07-2024 08:53-0500 Body mass index (BMI) [Ratio] 44.6 kg/m2 Dr. Ignacia Reyna DO Work Phone: [facility] 06-07-2024 08:53-0500 Body temperature 97 [degF] Dr. Ignacia Reyna DO Work Phone: [facility] 06-07-2024 08:53-0500 Diastolic blood pressure 99 mm[Hg] Dr. Ignacia Reyna DO Work Phone: [facility] 06-07-2024 08:53-0500 Heart rate 60 /min Dr. Ignacia Reyna DO Work Phone: [facility] 06-07-2024 08:53-0500 Respiratory rate 18 /min Dr. Ignacia Reyna DO Work Phone: [facility] 06-07-2024 08:53-0500 Systolic blood pressure 134 mm[Hg] Dr. Ignacia Reyna DO Work Phone: [facility] 06-05-2024 16:10-0500 Body temperature 97.1 [degF] Dr. Ignacia Reyna DO Work Phone: [facility] 06-05-2024 16:10-0500 Diastolic blood pressure 70 mm[Hg] Dr. Ignacia Reyna DO Work Phone: [facility] 06-05-2024 16:10-0500 Heart rate 50 /min Dr. Ignacia Reyna DO Work Phone: [facility] 06-05-2024 16:10-0500 Respiratory rate 16 /min Dr. Ignacia Reyna DO Work Phone: [facility] 06-05-2024 16:10-0500 SaO2% (BldA) [Mass fraction] 96 % Dr. Ignacia Reyna DO Work Phone: [facility] 06-05-2024 16:10-0500 Systolic blood pressure 138 mm[Hg] Dr. Ignacia Reyna DO Work Phone: [facility] 06-05-2024 14:45-0500 Inhaled oxygen flow rate 2 L/min Dr. Ignacia Reyna DO Work Phone: [facility] 06-05-2024 12:17-0500 Body mass index (BMI) [Ratio] 36 kg/m2 Dr. Ignacia Reyna DO Work Phone: [facility] 06-05-2024 12:17-0500 Body weight 127.[address] Ignacia Reyna DO Work Phone: [facility] 05-12-2024 00:18-0400 Body weight 157.[address] Ignacia Reyna DO Work Phone: [facility] 04-08-2024 11:21-0400 Body temperature 97.34 [degF] MIRELA ANDERSONNEN ORDERLIES TEACHER[employer] [facility] 04-08-2024 11:21-0400 Diastolic Blood Pressure Non-Invasive 72 mm[Hg] MIRELA KENNEN ORDERLIES TEACHER[employer] [facility] 04-08-2024 11:21-0400 Heart rate 57 /min MIRELA ANDERSONNEN ORDERLIES TEACHER[employer] [facility] 04-08-2024 11:21-0400 Reason For Taking VItal Signs MIRELAAUGUSTINE BARRONNEN ORDERLIES TEACHER[employer] [facility] 04-08-2024 11:21-0400 Respiratory rate 18 /min MIRELA ANDERSONNEN ORDERLIES TEACHER[employer] [facility] 04-08-2024 11:21-0400 Systolic Blood Pressure Non-Invasive 147 mm[Hg] MIRELA ANDERSONNEN ORDERLIES TEACHER[employer] [facility] 04-08-2024 06:27-0400 Body temperature 97.88 [degF] MIRELA ANDERSONNEN ORDERLIES TEACHER[employer] [facility] 04-08-2024 06:27-0400 Diastolic Blood Pressure Non-Invasive 69 mm[Hg] MIRELA KENNEN ORDERLIES TEACHER[employer] [facility] 04-08-2024 06:27-0400 Heart rate 48 /min MIRELAAUGUSTINE BARRONNEN ORDERLIES TEACHER[employer] [facility] 04-08-2024 06:27-0400 Reason For Taking VItal Signs MIRELA ANDERSONNEN ORDERLIES TEACHER[employer] [facility] 04-08-2024 06:27-0400 Respiratory rate 18 /min MIRELA BARRONCLARISSA ORDERLIES TEACHER[employer] [facility] 04-08-2024 06:27-0400 Systolic Blood Pressure Non-Invasive 145 mm[Hg] MIRELA BERGERONWally ORDERLIES TEACHER[employer] 04-08-2024 02:54-0400 Body temperature 97.52 [degF] MIRELA BERGERONWally ORDERLIES TEACHER[employer] [facility] 04-08-2024 02:54-0400 Diastolic Blood Pressure Non-Invasive 68 mm[Hg] MIRELA BARRONCLARISSA ORDERLIES TEACHER[employer] [facility] 04-08-2024 02:54-0400 Heart rate 57 /min MIRELAAUGUSTINE BARRONCLARISSA ORDERLIES TEACHER[employer] [facility] 04-08-2024 02:54-0400 Reason For Taking VItal Signs MIRELA BARRONCLARISSA ORDERLIES TEACHER[employer] [facility] 04-08-2024 02:54-0400 Respiratory rate 18 /min MIRELA BARRONCLARISSA ORDERLIES TEACHER[employer] [facility] 04-08-2024 02:54-0400 Systolic Blood Pressure Non-Invasive 141 mm[Hg] MIRELAAUGUSTINE BARRONCLARISSA ORDERLIES TEACHER[employer] [facility] 04-07-2024 00:46-0400 Blood Pressure Cuff Size MIRELA BARRONCLARISSA ORDERLIES TEACHER[employer] [facility] 04-07-2024 00:46-0400 Blood Pressure Location MIRELA BARRONCLARISSA [employer] TEACHER[employer] [facility] 04-07-2024 00:46-0400 Blood Pressure Method MIRELAAUGUSTINE BARRONCLARISSA ORDERLIES TEACHER[employer] [facility] 04-07-2024 00:46-0400 Heart rate 50 /min 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[employer] [facility] 04-06-2024 19:27-0400 Heart rate 60 /min 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[employer] 04-06-2024 15:12-0400 Body height 188 cm 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[employer] 04-06-2024 15:12-0400 Body weight 131.9 kg 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[employer] 04-06-2024 15:12-0400 Body weight 37.32 kg/m2 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[employer] 04-06-2024 11:30-0400 Body weight 131.9 kg 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[employer] 04-06-2024 11:23-0400 Blood Pressure Cuff Size 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[employer] 04-06-2024 11:23-0400 Blood Pressure Location MIRELAAUGUSTINE BERGERONN [employer] TEACHER[employer] [facility] 04-06-2024 11:23-0400 Blood Pressure Method MIRELAAUGUSTINE BERGERONN [employer]LIES TEACHER[employer] [facility] 04-06-2024 11:23-0400 Heart rate 50 /min 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[employer] 04-06-2024 09:20-0400 Blood Pressure Cuff Size MIRELAAUGUSITNE BERGERONN ORDERLIES TEACHER[employer] 04-06-2024 09:20-0400 Blood Pressure Location 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[employer] [facility] 04-06-2024 09:20-0400 Blood Pressure Method 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[employer] 04-06-2024 09:20-0400 Body height 188 cm 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[employer] 04-06-2024 09:20-0400 Heart rate 53 /min 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[employer] [facility] 04-05-2024 01:33-0400 Body temperature 97.7 [degF] POORNIMA FROMMELT DO [facility] 04-05-2024 01:33-0400 Diastolic Blood Pressure Non-Invasive 78 mm[Hg] POORNIMA FROMMELT DO [facility] 04-05-2024 01:33-0400 Heart rate 64 /min POORNIMA FROMMELT DO [facility] 04-05-2024 01:33-0400 Respiratory rate 20 /min POORNIMA FROMMELT DO [facility] 04-05-2024 01:33-0400 Systolic Blood Pressure Non-Invasive 154 mm[Hg] POORNIMA FROMMELT DO [facility] 04-05-2024 00:33-0400 Diastolic Blood Pressure Non-Invasive 75 mm[Hg] POORNIMA FROMMELT DO [facility] 04-05-2024 00:33-0400 Heart rate 60 /min POORNIMA FROMMELT DO [facility] 04-05-2024 00:33-0400 Reason For Taking VItal Signs POORNIMA FROMRHINAT DO [facility] 04-05-2024 00:33-0400 Respiratory rate 20 /min POORNIMA ANGUIANOSpotifyT DO [facility] 04-05-2024 00:33-0400 Systolic Blood Pressure Non-Invasive 139 mm[Hg] POORNIMA ANGUIANOMELT DO [facility] 04-04-2024 22:07-0400 Heart rate 61 /min POORNIMA ANGUIANOSpotifyT DO [facility] 04-04-2024 22:07-0400 Reason For Taking VItal Signs POORNIMA ANGUIANOSpotifyT DO [facility] 04-04-2024 22:07-0400 Respiratory rate 22 /min POORNIMA ANGUIANOSpotifyT DO [facility] 04-04-2024 21:16-0400 Body height 188 cm POORNIMA ANGUIANOSpotifyT DO [facility] 04-04-2024 21:16-0400 Body temperature 96.98 [degF] POORNIMA ANGUIANOSpotifyT DO [facility] 04-04-2024 21:16-0400 Body weight 134.1 kg POORNIMA ANGUIANOSpotifyT DO [facility] 04-04-2024 21:16-0400 Diastolic Blood Pressure Non-Invasive 74 mm[Hg] POORNIMA ANGUIANOSpotifyT DO [facility] 04-04-2024 21:16-0400 Systolic Blood Pressure Non-Invasive 159 mm[Hg] POORNIMA ANGUIANOSpotifyT DO [facility] 01-21-2024 13:40-0400 Diastolic Blood Pressure Non-Invasive 59 mm[Hg] FERNANDO ZEE MD [facility] 01-21-2024 13:40-0400 Heart rate 48 /min FERNANDO ZEE MD [facility] 01-21-2024 13:40-0400 Respiratory rate 20 /min FERNANDO ZEE MD [facility] 01-21-2024 13:40-0400 Systolic Blood Pressure Non-Invasive 125 mm[Hg] FERNANDO ZEE MD [facility] 01-21-2024 11:54-0400 Diastolic Blood Pressure Non-Invasive 64 mm[Hg] FERNANDO ZEE MD [facility] 01-21-2024 11:54-0400 Heart rate 47 /min FERNANDO ZEE MD [facility] 01-21-2024 11:54-0400 Respiratory rate 22 /min FERNANDO ZEE MD [facility] 01-21-2024 11:54-0400 Systolic Blood Pressure Non-Invasive 118 mm[Hg] FERNANDO ZEE MD [facility] 01-21-2024 11:11-0400 Body temperature 98.6 [degF] FERNANDO ZEE MD [facility] 01-21-2024 11:11-0400 Diastolic Blood Pressure Non-Invasive 78 mm[Hg] FERNANDO ZEE MD [facility] 01-21-2024 11:11-0400 Heart rate 52 /min FERNANDO ZEE MD [facility] 01-21-2024 11:11-0400 Respiratory rate 20 /min FERNANDO ZEE MD [facility] 01-21-2024 11:11-0400 Systolic Blood Pressure Non-Invasive 136 mm[Hg] FERNANDO ZEE MD [facility] 01-12-2024 15:16-0400 Diastolic blood pressure 74 mm[Hg] Shar Downs MD Work Phone: [facility] 01-12-2024 15:16-0400 Heart rate 48 /min Shar Downs MD Work Phone: [facility] 01-12-2024 15:16-0400 Systolic blood pressure 143 mm[Hg] Shar Downs MD Work Phone: [facility] 11-13-2023 22:55-0400 Diastolic Blood Pressure Non-Invasive 58 mm[Hg] FERNANDO ZEE MD [facility] 11-13-2023 22:55-0400 Heart rate 42 /min FERNANDO ZEE MD [facility] 11-13-2023 22:55-0400 Respiratory rate 18 /min FERNANDO ZEE MD [facility] 11-13-2023 22:55-0400 Systolic Blood Pressure Non-Invasive 112 mm[Hg] FERNANDO ZEE MD [facility] 11-13-2023 21:54-0400 Diastolic Blood Pressure Non-Invasive 64 mm[Hg] FERNANDO ZEE MD [facility] 11-13-2023 21:54-0400 Heart rate 42 /min FERNANDO ZEE MD [facility] 11-13-2023 21:54-0400 Reason For Taking VItal Signs FERNANDO ZEE MD [facility] 11-13-2023 21:54-0400 Respiratory rate 18 /min FERNANDO ZEE MD [facility] 11-13-2023 21:54-0400 Systolic Blood Pressure Non-Invasive 131 mm[Hg] FERNANDO ZEE MD [facility] 11-13-2023 21:53-0400 Blood Pressure Location FERNANDO ZEE MD [facility] 11-13-2023 21:53-0400 Blood Pressure Method FERNANDO ZEE MD [facility] 11-13-2023 21:53-0400 Diastolic Blood Pressure Non-Invasive 64 mm[Hg] FERNANDO ZEE MD [facility] 11-13-2023 21:53-0400 Heart rate 42 /min FERNANDO ZEE MD [facility] 11-13-2023 21:53-0400 Respiratory rate 16 /min FERNANDO ZEE MD [facility] 11-13-2023 21:53-0400 Systolic Blood Pressure Non-Invasive 131 mm[Hg] FERNANDO ZEE MD [facility] 11-13-2023 20:17-0400 Blood Pressure Location FERNANDO ZEE MD [facility] 11-13-2023 20:17-0400 Blood Pressure Method FERNANDO ZEE MD [facility] 11-13-2023 20:17-0400 Body height 188 cm FERNANDO ZEE [facility] 11-13-2023 20:17-0400 Body temperature 98.06 [degF] FERNANDO ZEE MD [facility] 11-13-2023 20:17-0400 Body weight 157 kg FERNANDO ZEE [facility] 11-13-2023 20:17-0400 Heart rate 52 /min FERNANDO ZEE [facility] 11-03-2023 21:19-0400 Body temperature 98.2 [degF] USER EXPERIENCE ANALYST-C Kellie Baltes USER EXPERIENCE ANALYST Work Phone: [facility] 11-03-2023 21:19-0400 Diastolic blood pressure 70 mm[Hg] USER EXPERIENCE ANALYST-C Kellie Baltes USER EXPERIENCE ANALYST Work Phone: [facility] 11-03-2023 21:19-0400 Heart rate 60 /min USER EXPERIENCE ANALYST-C Kellie Baltes USER EXPERIENCE ANALYST Work Phone: [facility] 11-03-2023 21:19-0400 Respiratory rate 18 /min USER EXPERIENCE ANALYST-C Kellie Baltes USER EXPERIENCE ANALYST Work Phone: [facility] 11-03-2023 21:19-0400 SaO2% (BldA) [Mass fraction] 93 % USER EXPERIENCE ANALYST-C Kellie Baltes USER EXPERIENCE ANALYST Work Phone: [facility] 11-03-2023 21:19-0400 Systolic blood pressure 135 mm[Hg] USER EXPERIENCE ANALYST-C Kellie Baltes USER EXPERIENCE ANALYST Work Phone: [facility] 11-03-2023 14:13-0400 Body height 187.96 cm USER EXPERIENCE ANALYST-C Kellie Baltes USER EXPERIENCE ANALYST Work Phone: [facility] 11-03-2023 14:13-0400 Body weight 159.8 kg USER EXPERIENCE ANALYST-C Kellie Balmichael USER EXPERIENCE ANALYST Work Phone: [facility] 11-02-2023 16:45-0400 Inhaled oxygen flow rate 2 L/min USER EXPERIENCE ANALYST-C Kellie Jacksonmichael USER EXPERIENCE ANALYST Work Phone: [facility] 11-02-2023 02:32-0400 Body mass index (BMI) [Ratio] 45.2 kg/m2 USER EXPERIENCE ANALYST-C Kellie Jacksonmichael USER EXPERIENCE ANALYST Work Phone: [facility] 10-28-2023 19:35-0400 Body temperature 97.8 [degF] [facility] 10-28-2023 19:35-0400 Diastolic blood pressure 75 mm[Hg] [facility] 10-28-2023 19:35-0400 Heart rate 61 /min [facility] 10-28-2023 19:35-0400 Respiratory rate 14 /min [facility] 10-28-2023 19:35-0400 SaO2% (BldA) [Mass fraction] 98 % [facility] 10-28-2023 19:35-0400 Systolic blood pressure 154 mm[Hg] [facility] 10-28-2023 15:00-0400 Inhaled oxygen flow rate 2 L/min [facility] 10-28-2023 13:13-0400 Body height 187.96 cm [facility] 10-28-2023 13:13-0400 Body mass index (BMI) [Ratio] 47.7 kg/m2 [facility] 10-28-2023 13:13-0400 Body weight 168.8 kg [facility] 10-27-2023 08:30-0400 Heart rate 68 /min DANIE ALBERTO MD [facility] 10-27-2023 07:33-0400 Body temperature 97.52 [degF] DANIE ALBERTO MD [facility] 10-27-2023 07:33-0400 Diastolic Blood Pressure Non-Invasive 78 mm[Hg] DANIE ALBERTO MD [facility] 10-27-2023 07:33-0400 Heart rate 72 /min DANIE ALBERTO MD [facility] 10-27-2023 07:33-0400 Reason For Taking VItal Signs DANIE ALBERTO MD [facility] 10-27-2023 07:33-0400 Respiratory rate 18 /min DANIE ALBERTO MD [facility] 10-27-2023 07:33-0400 Systolic Blood Pressure Non-Invasive 152 mm[Hg] DANIE ALBERTO MD [facility] 10-26-2023 19:13-0400 Body temperature 97.88 [degF] DANIE ALBERTO MD [facility] 10-26-2023 19:13-0400 Diastolic Blood Pressure Non-Invasive 77 mm[Hg] DANIE ALBERTO MD [facility] 10-26-2023 19:13-0400 Heart rate 64 /min DANIE ALBERTO MD [facility] 10-26-2023 19:13-0400 Reason For Taking VItal Signs DANIE ALBERTO MD [facility] 10-26-2023 19:13-0400 Respiratory rate 18 /min DANIE ALBERTO MD [facility] 10-26-2023 19:13-0400 Systolic Blood Pressure Non-Invasive 164 mm[Hg] DANIE ALBERTO MD [facility] 10-26-2023 16:46-0400 Heart rate 68 /min DANIE ALBERTO MD [facility] 10-26-2023 13:05-0400 Body temperature 97.52 [degF] DANIE ALBERTO MD [facility] 10-26-2023 13:05-0400 Diastolic Blood Pressure Non-Invasive 61 mm[Hg] DANIE ALBERTO MD [facility] 10-26-2023 13:05-0400 Heart rate 71 /min DANIE ALBERTO MD [facility] 10-26-2023 13:05-0400 Reason For Taking VItal Signs DANIE ALBERTO MD [facility] 10-26-2023 13:05-0400 Respiratory rate 18 /min DANIE ALBERTO MD FACP [address] [place] [address] 10-26-2023 13:05-0400 Systolic Blood Pressure Non-Invasive 144 mm[Hg] DANIE ALBERTO MD [facility] 10-26-2023 09:09-0400 Heart rate 75 /min DANIE ALBERTO MD [facility] 10-23-2023 19:43-0400 Heart rate 65 /min DANIE ALBERTO MD [facility] 10-22-2023 19:52-0400 Heart rate 60 /min DANIE ALBERTO MD [facility] 10-22-2023 06:53-0400 Body weight 169.2 kg DANIE ALBERTO MD [facility] 10-21-2023 19:13-0400 Heart rate 61 /min DANIE ALBERTO MD [facility] 10-21-2023 06:24-0400 Blood Pressure Cuff Size DANIE ALBERTO MD [facility] 10-21-2023 06:24-0400 Blood Pressure Location DANIE ALBERTO MD [facility] 10-21-2023 06:24-0400 Blood Pressure Method DANIE ALBERTO MD [facility] 10-15-2023 10:46-0400 Body weight 164.7 kg DANIE ALBERTO MD FACP [address] [place] [address] 10-13-2023 19:59-0400 Body height 188 cm DANIE ALBERTO MD FACP [address] [place] [address] 10-13-2023 19:59-0400 Body weight 170.1 kg DANIE ALBERTO MD [facility]ACP [address] [place] [address] 10-13-2023 19:59-0400 Body weight 48.13 kg/m2 DANIE ALBERTO MD [facility] 10-13-2023 19:40-0400 Body height 188 cm DANIE ALBERTO MD [facility] 10-13-2023 19:40-0400 Body weight 48.13 kg/m2 DANIE ALBERTO MD FACP [address] [place] [address] 10-13-2023 19:33-0400 Body temperature 98.6 [degF] DANIE ALBERTO MD FACP [address] [place] [address] 10-13-2023 18:22-0400 Body temperature 97.7 [degF] DANIE ALBERTO MD FACP [facility] 10-13-2023 18:22-0400 Diastolic Blood Pressure Non-Invasive 61 mm[Hg] DANIE ALBERTO MD FACP [address] [place] [address] 10-13-2023 18:22-0400 Heart rate 55 /min DANIE ALBERTO MD FACP [address] [place] [address] 10-13-2023 18:22-0400 Respiratory rate 19 /min DANIE ALBERTO MD FACP [address] [place] [address] 10-13-2023 18:22-0400 Systolic Blood Pressure Non-Invasive 135 mm[Hg] DANIE ALBERTO MD FACP [address] [place] [address] 10-13-2023 17:14-0400 Heart rate 69 /min DANIE ALBERTO MD FACP [address] [place] [address] 10-13-2023 15:02-0400 Heart rate 62 /min DANIE ALBERTO MD FACP [address] [place] [address] 10-13-2023 15:02-0400 Respiratory rate 18 /min DANIE ALBERTO MD FACP [address] [place] [address] 10-13-2023 11:55-0400 Blood Pressure Cuff Size DANIE ALBERTO MD FACP [address] [place] [address] 10-13-2023 11:55-0400 Blood Pressure Location DANIE ALBERTO MD FACP [address] [place] [address] 10-13-2023 11:55-0400 Blood Pressure Method DANIE ALBERTO MD [facility]ACP [address] [place] [address] 10-13-2023 11:55-0400 Body temperature 98.42 [degF] DANIE ALBERTO MD FACP [address] [place] [address] 10-13-2023 11:55-0400 Diastolic Blood Pressure Non-Invasive 64 mm[Hg] DANIE ALBERTO MD FACP [address] [place] [address] 10-13-2023 11:55-0400 Heart rate 60 /min DANIE ALBERTO MD FACP [address] [place] [address] 10-13-2023 11:55-0400 Reason For Taking VItal Signs DANIE ALBERTO MD FACP [address] [place] [address] 10-13-2023 11:55-0400 Respiratory rate 18 /min DANIE ALBERTO MD FACP [address] [place] [address] 10-13-2023 11:55-0400 Systolic Blood Pressure Non-Invasive 169 mm[Hg] DANIE ALBERTO MD FACP [address] [place] [address] 10-13-2023 08:10-0400 Heart rate 62 /min DANIE ALBERTO MD FACP [address] [place] [address] 10-13-2023 07:52-0400 Blood Pressure Cuff Size DANIE ALBERTO MD FACP [address] [place] [address] 10-13-2023 07:52-0400 Blood Pressure Location DANIE ALBERTO MD FACP [address] [place] [address] 10-13-2023 07:52-0400 Blood Pressure Method DANIE ALBERTO MD [facility]ACP [address] [place] [address] 10-13-2023 07:52-0400 Body temperature 98.24 [degF] DANIE ALBERTO MD FACP [address] [place] [address] 10-13-2023 07:52-0400 Diastolic Blood Pressure Non-Invasive 65 mm[Hg] DANIE ALBERTO MD FACP [address] [place] [address] 10-13-2023 07:52-0400 Reason For Taking VItal Signs DANIE ALBERTO MD FACP [address] [place] [address] 10-13-2023 07:52-0400 Systolic Blood Pressure Non-Invasive 147 mm[Hg] DANIE ALBERTO MD FACP [address] [place] [address] 10-13-2023 06:48-0400 Heart rate 60 /min DANIE ALBERTO MD FACP [address] [place] [address] 10-13-2023 03:49-0400 Mean blood pressure 85 mm[Hg] DANIE ALBERTO MD FACP [address] [place] [address] 10-13-2023 02:46-0400 Heart rate 60 /min DANIE ALBERTO MD FACP [address] [place] [address] 10-12-2023 23:11-0400 Heart rate 61 /min DANIE ALBERTO MD FACP [address] [place] [address] 10-12-2023 23:11-0400 Reason For Taking VItal Signs DANIE ALBERTO MD FACP [address] [place] [address] 10-12-2023 19:34-0400 Body temperature 98.24 [degF] DANIE ALBERTO MD FACP [address] [place] [address] 10-11-2023 03:19-0400 Body temperature 97.7 [degF] DANIE ALBERTO MD FACP [address] [place] [address] 10-11-2023 03:19-0400 Heart rate 56 /min DANIE ALBERTO MD FACP [address] [place] [address] 10-10-2023 15:45-0400 Blood Pressure Cuff Size DANIE ALBERTO MD FACP [address] [place] [address] 10-10-2023 15:45-0400 Blood Pressure Location DANIE ALBERTO MD FACP [address] [place] [address] 10-10-2023 15:45-0400 Blood Pressure Method DANIE ALBERTO MD FACP [address] 10-10-2023 15:45-0400 Mean blood pressure 87 mm[Hg] DANIE ALBERTO MD FACP [address] [place] [address] 10-10-2023 10:57-0400 Diastolic blood pressure 49 mm[Hg] DANIE ALBERTO MD FACP [address] [place] [address] 10-10-2023 10:57-0400 Signs/Symptoms Transfusion Reaction DANIE ALBERTO MD FACP [address] [place] [address] 10-10-2023 10:57-0400 Systolic blood pressure 119 mm[Hg] DANIE ALBERTO MD FACP [address] [place] [address] 10-10-2023 10:55-0400 Signs/Symptoms Transfusion Reaction No DANIE ALBERTO MD FACP [address] [place] [address] 10-10-2023 10:08-0400 Signs/Symptoms Transfusion Reaction DANIE ALBERTO MD FACP [address] [place] [address] 10-10-2023 09:09-0400 Diastolic blood pressure 56 mm[Hg] DANIE ALBERTO MD FACP [address] [place] [address] 10-10-2023 09:09-0400 Systolic blood pressure 143 mm[Hg] DANIE ALBERTO MD FACP [address] [place] [address] 10-10-2023 08:27-0400 Body temperature 97.34 [degF] DANIE ALBERTO MD FACP [address] [place] [address] 10-07-2023 17:14-0400 Body height 188 cm DANIE ALBERTO MD FACP [address] [place] [address] 10-07-2023 17:14-0400 Body weight 169 kg DANIE ALBERTO MD FACP [address] [place] [address] 10-07-2023 17:14-0400 Body weight 47.82 kg/m2 DANIE ALBERTO MD FACP [address] [place] [address] 10-07-2023 15:16-0400 Body temperature 98.06 [degF] WU WADSWORTH ORDERLIES TEACHER-[facility]AS [facility] 10-07-2023 15:16-0400 Diastolic blood pressure 69 mm[Hg] WU WADSWORTH ORDERLIES TEACHER-GAS PROVER [address] [place] [address] 10-07-2023 15:16-0400 Heart rate 61 /min WU WADSWORTH ORDERLIES TEACHER-[employer] [facility] 10-07-2023 15:16-0400 Respiratory rate 20 /min WU WADSWORTH ORDERLIES TEACHER-GAS [facility] 10-07-2023 15:16-0400 Systolic blood pressure 111 mm[Hg] WU KAPPER ORDERLIES TEACHER-GAS [facility] 10-07-2023 14:30-0400 Signs/Symptoms Transfusion Reaction No WU KAPPER ORDERLIES TEACHER-G[employer] [facility] 10-07-2023 14:30-0400 Body temperature 98.06 [degF] WU KAPPER ORDERLIES TEACHER-[employer]AS [facility] 10-07-2023 14:30-0400 Diastolic blood pressure 69 mm[Hg] WU KAPPER ORDERLIES TEACHER-[employer] PR[facility] 10-07-2023 14:30-0400 Diastolic Blood Pressure Non-Invasive 69 mm[Hg] WU KAPPER ORDERLIES TEACHER-[employer] [facility] 10-07-2023 14:30-0400 Heart rate 61 /min WU KAPPER ORDERLIES TEACHER-[employer] [facility] 10-07-2023 14:30-0400 Respiratory rate 20 /min WU KAPPER ORDERLIES TEACHER-G[employer] [facility] 10-07-2023 14:30-0400 Systolic blood pressure 111 mm[Hg] WU KAPPER ORDERLIES TEACHER-[employer] 10-07-2023 14:30-0400 Systolic Blood Pressure Non-Invasive 111 mm[Hg] WU KAPPER ORDERLIES TEACHER-[employer] [facility] 10-07-2023 14:13-0400 Heart rate 69 /min WU KAPPER ORDERLIES TEACHER-[employer] [facility] 10-07-2023 14:13-0400 Respiratory rate 24 /min WU KAPPER ORDERLIES TEACHER-[employer] [facility] 10-07-2023 14:00-0400 Body temperature 97.88 [degF] WU WADSWORTH ORDERLIES TEACHER-[employer] 10-07-2023 14:00-0400 Diastolic Blood Pressure Non-Invasive 70 mm[Hg] WU WADSWORTH ORDERLIES TEACHER[employer] [facility] 10-07-2023 14:00-0400 Signs/Symptoms Transfusion Reaction WU CONNELLER ORDERLIES TEACHER-[employer] [facility] 10-07-2023 14:00-0400 Systolic Blood Pressure Non-Invasive 116 mm[Hg] WU WADSWORTH ORDERLIES TEACHER[employer] [facility] 10-07-2023 13:40-0400 Signs/Symptoms Transfusion Reaction WU WADSWORTH ORDERLIES TEACHER-G[employer] PR[facility] 10-07-2023 13:10-0400 Diastolic Blood Pressure Non-Invasive 69 mm[Hg] WU WADSWORTH ORDERLIES TEACHER[employer] [facility] 10-07-2023 13:10-0400 Systolic Blood Pressure Non-Invasive 112 mm[Hg] WU WADSWORTH ORDERLIES TEACHER[employer] [facility] 10-07-2023 12:10-0400 Reason For Taking VItal Signs WU WADSWORTH ORDERLIES TEACHER-GAS PR[employer] [facility] 10-07-2023 11:50-0400 Diastolic blood pressure 69 mm[Hg] WU WADSWORTH ORDERLIES TEACHER-[employer] [facility] 10-07-2023 11:50-0400 Inspected Blood Donor Unit Appearance WU WADSWORTH ORDERLIES TEACHER-[employer] PR[employer] [facility] 10-07-2023 11:50-0400 Reason For Taking VItal Signs WU KAPPER ORDERLIES TEACHER-[employer] [facility] 10-07-2023 11:50-0400 Systolic blood pressure 116 mm[Hg] WU KOER ORDERLIES TEACHER-[employer] PR[facility] 10-07-2023 11:50-0400 Transfusion Documentation Started/Paper WU CONNELLER ORDERLIES TEACHER-[employer] [facility] 10-07-2023 10:37-0400 Heart rate 63 /min WU KAPPER ORDERLIES TEACHER-[employer] [facility] 10-07-2023 10:37-0400 Reason For Taking VItal Signs WU WADSWORTH ORDERLIES TEACHER-G[employer] PR[employer] [facility] 10-07-2023 06:32-0400 Heart rate 62 /min WU CONNELLER ORDERLIES TEACHER-[employer] [facility] 10-07-2023 03:22-0400 Heart rate 63 /min WU KAPPER ORDERLIES TEACHER-[employer] [facility] 10-06-2023 07:01-0400 Body temperature 100.22 [degF] WU KAPPER ORDERLIES TEACHER-[employer] [facility] 10-06-2023 07:01-0400 Heart rate 72 /min WU KAPPER ORDERLIES TEACHER-[employer] 10-06-2023 03:33-0400 Heart rate 71 /min WU KAPPER ORDERLIES TEACHER[employer] [facility] 10-05-2023 23:11-0400 Heart rate 64 /min WU KAPPER ORDERLIES TEACHER[employer] [facility] 10-04-2023 13:07-0400 Body weight 46.6 kg/m2 WU KAPPER ORDERLIES TEACHER-[employer] [facility] 10-04-2023 05:18-0400 Body weight 170.4 kg WU KAPPER ORDERLIES TEACHER-[employer] [facility] 10-03-2023 21:49-0400 Body height 188 cm WU KAPPER ORDERLIES TEACHER-[employer] [facility] 10-03-2023 21:49-0400 Body weight 170.4 kg WU KAPPER ORDERLIES TEACHER-[employer] [facility] 10-03-2023 21:49-0400 Body weight 48.21 kg/m2 WU KAPPER ORDERLIES TEACHER[employer] [facility] 10-03-2023 15:46-0400 Blood Pressure Cuff Size WU KAPPER ORDERLIES TEACHER[employer] [facility] 10-03-2023 15:46-0400 Blood Pressure Location WU KAPPER ORDERLIES TEACHER[employer] 10-03-2023 15:46-0400 Blood Pressure Method WU KAPPER ORDERLIES TEACHER-GAS PROVER [facility] 03-16-2023 13:05-0400 Respiratory rate 20 /min DR ANDREW MORRIS MD [facility] 03-16-2023 12:45-0400 Diastolic Blood Pressure Non-Invasive [address] ANDREW MORRIS MD [facility] 03-16-2023 12:45-0400 Respiratory rate 20 /min DR ANDREW MORRIS MD [facility] 03-16-2023 12:45-0400 Systolic Blood Pressure Non-Invasive [address] ANDREW MORRIS MD [facility] 03-16-2023 10:56-0400 Diastolic Blood Pressure Non-Invasive [address] ANDREW MORRIS MD [address] [place] [address] 03-16-2023 10:56-0400 Respiratory rate 20 /min DR ANDREW MORRIS MD [address] [place] [address] 03-16-2023 10:56-0400 Systolic Blood Pressure Non-Invasive [address] ANDREW MORRIS MD [address] [place] [address] 03-16-2023 10:41-0400 Diastolic Blood Pressure Non-Invasive [address] ANDREW MORRIS MD [address] [place] [address] 03-16-2023 10:41-0400 Systolic Blood Pressure Non-Invasive [address] ANDREW MORRIS MD [address] [place] [address] 03-16-2023 10:24-0400 Heart rate 54 /min DR ANDREW MORRIS MD [address] [place] [address] 03-16-2023 10:08-0400 Heart rate 56 /min DR ANDREW MORRIS MD [address] [place] [address] 03-16-2023 06:47-0400 Body height 182.[address] ANDREW MORRIS MD [address] [place] [address] 03-16-2023 06:47-0400 Body temperature 97.52 [degF] DR ANDREW MORRIS MD [address] [place] [address] 03-16-2023 06:47-0400 Body weight 170.[address] ANDRWE MORRIS MD [address] [place] [address] 03-16-2023 06:47-0400 Heart rate 55 /min DR ANDREW MORRIS MD [address] [place] [address] 01-26-2023 10:46-0400 Diastolic Blood Pressure Non-Invasive 88 1 NAHUM MARIN MD [address] [place] [address] 01-26-2023 10:46-0400 Reason For Taking VItal Signs NAHUM MARIN MD [address] [place] [address] 01-26-2023 10:46-0400 Systolic Blood Pressure Non-Invasive 160 1 NAHUM MARIN MD [address] [place] [address] 01-26-2023 10:23-0400 Diastolic Blood Pressure Non-Invasive 93 1 NHAUM MARIN MD [address] [place] [address] 01-26-2023 10:23-0400 Heart rate 76 /min NAHUM MARIN MD [address] [place] [address] 01-26-2023 10:23-0400 Reason For Taking VItal Signs NAHUM MARIN MD [address] [place] [address] 01-26-2023 10:23-0400 Respiratory rate 18 /min NAHUM MARIN MD [address] [place] [address] 01-26-2023 10:23-0400 Systolic Blood Pressure Non-Invasive 179 1 NAHUM MARIN MD [address] [place] [address] 01-26-2023 10:10-0400 Diastolic Blood Pressure Non-Invasive 93 1 NAHUM MARIN MD [address] [place] [address] 01-26-2023 10:10-0400 Heart rate 67 /min NAHUM MARIN MD [address] [place] [address] 01-26-2023 10:10-0400 Respiratory rate 18 /min NAHUM MARIN MD [address] [place] [address] 01-26-2023 10:10-0400 Systolic Blood Pressure Non-Invasive 153 1 NAHUM MARIN MD [address] [place] [address] 01-26-2023 10:08-0400 Body temperature 96.8 [degF] NAHUM MARIN MD [address] [place] [address] 01-26-2023 10:08-0400 Heart rate 66 /min NAHUM MARIN MD [address] [place] [address] 01-26-2023 10:08-0400 Respiratory rate 18 /min NAHUM MARIN MD [address] [place] [address] 01-26-2023 10:05-0400 Respiratory Rate - Anes 0 br/min NAHUM MARIN MD [address] [place] [address] 01-26-2023 09:55-0400 Respiratory Rate - Anes 0 br/min NAHUM MARIN MD [address] [place] [address] 01-26-2023 07:19-0400 Body height 182.9 cm NAHUM MARIN MD [address] [place] [address] 01-26-2023 07:19-0400 Body temperature 97.7 [degF] NAHUM MARIN MD [address] [place] [address] 01-26-2023 07:19-0400 Body weight 173.2 kg NAHUM MARIN MD [address] [place] [address] 01-26-2023 07:19-0400 Heart rate 90 /min NAHUM MARIN MD [address] 01-04-2023 09:45-0400 Diastolic Blood Pressure Non-Invasive 75 1 LILIA ERNANDEZ [facility] 01-04-2023 09:45-0400 Heart rate 69 /min LILIA ERNANDEZ MD [facility] 01-04-2023 09:45-0400 Respiratory rate 16 /min LILIA ERNANDEZ MD [facility] 01-04-2023 09:45-0400 Systolic Blood Pressure Non-Invasive 123 1 LILIA ERNANDEZ MD [facility] 01-04-2023 08:15-0400 Body temperature 97.88 [degF] LILIA ERNANDEZ MD [facility] 01-04-2023 08:15-0400 Body weight 171 kg LILIA ERNANDEZ MD [facility] 01-04-2023 08:15-0400 Diastolic Blood Pressure Non-Invasive 76 1 LILIA ERNANDEZ MD [facility] 01-04-2023 08:15-0400 Heart rate 82 /min LILIA ERNANDEZ MD [facility] 01-04-2023 08:15-0400 Respiratory rate 18 /min LILIA ERNANDEZ MD [facility] 01-04-2023 08:15-0400 Systolic Blood Pressure Non-Invasive 146 1 LILIA ERNANDEZ MD [facility] 10-24-2021 15:05-0400 Diastolic blood pressure 91 mm[Hg] DR MARLINE PENDLETON MD [facility] 10-24-2021 15:05-0400 Heart rate 83 /min DR MARLINE PENDLETON MD [facility] 10-24-2021 15:05-0400 Respiratory rate 16 /min DR MARLINE PENDLETON MD [facility] 10-24-2021 15:05-0400 Systolic blood pressure 150 mm[Hg] DR MARLINE PENDLETON MD [facility] 10-24-2021 14:35-0400 Diastolic blood pressure 88 mm[Hg] DR MARLINE PENDLETON MD [facility] 10-24-2021 14:35-0400 Heart rate 94 /min DR MARLINE PENDLETON MD [facility] 10-24-2021 14:35-0400 Respiratory rate 16 /min DR MARLINE PENDLETON MD [facility] 10-24-2021 14:35-0400 Systolic blood pressure 150 mm[Hg] DR MARLINE PENDLETON MD [facility] 10-24-2021 14:05-0400 Diastolic blood pressure 92 mm[Hg] DR MARLINE PENDLETON MD [facility] 10-24-2021 14:05-0400 Heart rate 79 /min DR MARLINE PENDLETON MD [facility] 10-24-2021 14:05-0400 Respiratory rate 16 /min DR MARLINE PENDLETON MD [facility] 10-24-2021 14:05-0400 Systolic blood pressure 145 mm[Hg] DR MARLINE PENDLETON MD [facility] 10-24-2021 13:35-0400 Mean blood pressure 97 mm[Hg] DR MARLINE PENDLETON MD [facility] 10-24-2021 13:20-0400 Mean blood pressure 89 mm[Hg] DR MARLINE PENDLETON MD [facility] 10-24-2021 13:00-0400 Mean blood pressure 100 mm[Hg] DR MARLINE PENDLETON MD [facility] 10-24-2021 10:45-0400 Body height [address] MARLINE PENDLETON MD [facility] 10-24-2021 10:45-0400 Body temperature 97.34 [degF] DR MARLINE PENDLETON MD [facility] 10-24-2021 10:45-0400 Body weight 156.[address] MARLINE PENDLETON MD [facility] 10-24-2021 10:45-0400 Body weight 44.28 kg/m2 DR MARLINE PENDLETON MD [facility] 10-24-2021 10:45-0400 diastolic 89 mm[Hg] DR MARLINE PENDLETON MD [facility] 10-24-2021 10:45-0400 Heart rate 93 /min DR MARLINE PENDLETON MD [facility] 10-24-2021 10:45-0400 systolic 148 mm[Hg] DR MARLINE PENDLETON MD [facility] Encounters Encounter Date Encounter Type Care Provider Facility Start: 03-07-2025 ambulatory Aaron Shannon Facility: [facility] Start: 01-24-2025 End: 02-08-[address] Aaron Shannon DPM -Wound Healing Ce nter Work Phone: Start: 01-24-2025 End: 02-08-[address] Kathleen Herzog MD [facility] Start: 01-10-2025 End: 01-11-2025 Emergency department patient visit RAGHAV TOLBERT [facility] Start: 01-06-2025 Non-patient / Non-visit Dr. Louie Howard [facility] Work Phone: Start: 01-06-2025 Dr. Louie Howard [facility] Work Phone: Start: 01-05-[address] [facility] Start: 01-05-2025 End: 01-06-2025 Evaluation and management of inpatient Dr. Juan Cunha DO Work Phone: -Medical Surgical 3 Start: 01-05-2025 End: 01-06-2025 Dr. Allie Swann MD -[facility] Surgical 3 Work Phone: Start: 01-03-2025 End: 01-08-[address] Aaron Shannon DPJuan Daniel -Wound Healing Ce nter Work Phone: Start: 01-03-2025 End: 01-08-2025 Dr. Aaron Shannon DPM -Wound Healing Je ter Work Phone: Start: 01-03-2025 End: 01-08-[address] Juan Cunha DO Work Phone: -Wound Healing Center Start: 01-01-2025 ambulatory [facility] Facility: [facility] Start: 11-29-2024 End: 12-09-[address] Aaron Shannon DPM -Wound Healing Ce nter Work Phone: Start: 11-29-2024 End: 12-09-2024 Dr. Aaron Shannon DPM -Wound Healing Je ter Work Phone: Start: 11-29-2024 End: 12-09-[address] Moshe Kitchen MD Work Phone: [facility] Work Phone: Start: 11-21-2024 ambulatory SHAR DOWNS Facdarrel lity:[phone] Start: 11-21-2024 End: 11-21-2024 Subsequent hospital visit by physician Laura [facility] 3 Work Phone: Radiology CT Scan Comment on above: Renal mass, left [N2 8.89] Start: 11-08-2024 End: 11-08-2024 ambulatory Aaron Shannon Facility:[facility] Start: 11-08-2024 End: 11-08-[address] Aaron Shannon DPM -Wound Healing Ce nter Work Phone: Start: 11-08-2024 End: 11-08-2024 Dr. Aaron Shannon DPM -Wound Healing Je ter Work Phone: Start: 11-01-2024 End: 11-01-2024 ambulatory SHAR DOWNS Facility:[id number] Start: 10-23-2024 End: 10-24-2024 Emergency department patient visit CHAYO BRANNON MD Facility:[facility] Start: 10-18-2024 ambulatory Dane Sun [facility] Start: 10-18-2024 Non-patient / Non-visit Dr. Dane Sun MD [facility] Start: 10-18-2024 Dr. Dane Sun MD [facility] Start: 10-18-2024 Non-patient / Non-visit [facility]. Vivek [facility] Work Phone: Start: 10-18-2024 Dr. Vivek Parks [facility] Work Phone: Start: 10-17-2024 Non-patient / Non-visit Dr. Vivek Gates DO [facility] Work Phone: Start: 10-17-2024 Dr. Vivek Gates DO [facility] Work Phone: Start: 10-16-2024 ambulatory Kathleen Herzog Facility:[facility] Start: 10-16-2024 Non-patient / Non-visit Dr. Vivek Cárdenas MD [facility] Start: 10-16-2024 Dr. Vivek Cárdenas MD [facility] Start: 10-16-2024 Non-patient / Non-visit Dr. Sommer Xie MD [facility] Work Phone: Start: 10-16-2024 Dr. Vivek [facility] Work Phone: Start: 10-15-2024 Non-patient / Non-visit Dr. Colby May MD [facility] Work Phone: Start: 10-15-2024 Dr. Colby May MD -[facility] In[facility] Work Phone: Start: 10-14-2024 ambulatory [facility] Start: 10-14-2024 Non-patient / Non-visit Dr. Suraj Quinn MD -[facility] Start: 10-14-2024 Dr. Suraj Quinn MD [facility] Start: 10-14-2024 Non-patient / Non-visit Dr. Colby May MD -[facility] Work Phone: Start: 10-14-2024 Dr. Colby May MD [facility] Work Phone: Start: 10-13-2024 ambulatory Monika Garcias Facility :[facility] Start: 10-13-2024 End: 10-18-2024 Evaluation and management of inpatient Dr. Monika Garcias MD -Medical Surgical 3 Work Phone: Start: 10-13-2024 End: 10-18-2024 Dr. Vivek Gates DO -Medical Surgical 3 Work Phone: Start: 10-12-2024 Non-patient / Non-visit Dr. Dl Neely MD -[facility] Work Phone: Start: 10-12-2024 Dr. Dl Neely MD -[facility] In[facility]icians Work Phone: Start: 10-11-2024 Non-patient / Non-visit Dr. Dl Neely MD [facility] Work Phone: Start: 10-11-2024 Dr. Dl Neely MD [facility] Work Phone: Start: 10-10-2024 ambulatory [facility] Start: 10-10-2024 End: 10-12-2024 Evaluation and management of inpatient Dr. Monika Garcias MD -Progressive Care Unit Work Phone: Start: 10-10-2024 End: 10-12-2024 Dr. Dl Neely MD -Progressive Care Unit Work Phone: Start: 09-27-2024 End: 10-09-[address] Moshe Kitchen MD Work Phone: [facility] Work Phone: Start: 09-27-2024 End: 10-09-[address] Aaron Shannon DPM -Wound Healing Ce nter Work Phone: Start: 09-27-2024 End: 10-09-2024 Dr. Aaron Shannon DPM -Wound Healing Je ter Work Phone: Start: 09-22-2024 End: 09-22-2024 ambulatory ISABELA CAMPBELL Facility:[id number] Start: 09-22-2024 End: 09-22-2024 Office outpatient visit 25 minutes Isabela Campbell ORDERLIES TEACHER.GAS PROVER Work Phone: Urology Comment on above: BPH with obstruction /lower urinary tract symptoms (Primary Dx); Chronic retention of urine Start: 09-20-2024 End: 09-21-2024 Telephone encounter Isabela Campbell ORDERLIES TEACHER.GAS PROVER Work Phone: Urology Comment on above: Refill Request Start: 09-16-2024 End: 09-17-2024 Dr. Juan Cunha DO -Emergency Departmen t Work Phone: Start: 09-16-2024 End: 09-17-2024 Emergency department patient visit Dr. Ignacia Reyna DO Work Phone: -Emergency Department Work Phone: Start: 09-13-[address] Aaron titus DPM -Wound Healing Center Work Phone: Start: 08-30-2024 End: 09-08-2024 ambulatory Aaron Shannon Facility:[facility] Start: 08-30-2024 End: 09-08-[address] Aaron Shannon DPM -Wound Healing Ce nter Work Phone: Start: 08-22-2024 End: 08-22-2024 Telephone encounter Isabela Campbell APRN.GAS PROVER Work Phone: Urology Start: 07-28-2024 End: 07-29-2024 Emergency department patient visit DANIE JANUARYEVA DO [facility] Start: 07-26-2024 End: 08-11-2024 ambulatory [facility] Facility:[facility] Start: 07-26-2024 End: 08-11-[address] Aaron Shannon DPM -Wound Healing Ce nter Work Phone: Start: 07-13-2024 End: 07-13-2024 Telephone encounter Isabela Campbell APRN.GAS PROVER Work Phone: Urology Comment on above: Appointment Start: 07-11-2024 End: 07-11-[address] [facility] Facility:[facility] Start: 07-11-2024 End: 07-11-[address] Aaron Shannon DPM -Wound Healing Ce nter Work Phone: Start: 06-07-2024 End: 06-10-[address] [facility] Facility:[facility] Start: 06-07-2024 End: 06-10-[address] Aaron Shannon DPM -Wound Healing Ce nter Work Phone: Start: 06-05-2024 End: 06-05-2024 Admission to same day surgery center Dr. Aaron Shannon DPM -Surgical Day Care Start: 06-05-2024 End: 06-05-[address] [facility] Facility:[facility] Start: 05-10-2024 End: 05-11-2024 [facility] Facility:[facility] Start: 04-20-2024 End: 04-20-2024 Telephone encounter Donovan Edmondson MD Work Phone: Hematology/Oncology Comment on above: Appointment Start: 04-06-2024 End: 04-08-2024 Emergency department patient visit DR ROB MONTENEGRO DO Facility:[facility] Start: 04-06-2024 End: 04-08-2024 Observation 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-GAS PROVER [facility] Start: 04-05-2024 End: 04-10-2024 ambulatory Aaron Moss Facility:[facility] Start: 04-05-2024 End: 04-09-2024 ambulatory KELLIE BENITES ORDERLIES TEACHER-[employer]AS [employer]OVER Facility:[facility] Start: 04-05-2024 End: 04-09-2024 Outreach Lab KELLIE BENITES ORDERLIES TEACHER-GAS PROVER [facility] Start: 04-04-2024 End: 04-05-2024 Emergency department patient visit POORNIMA HINKLE [facility] Start: 03-31-2024 End: 04-08-2024 ambulatory KELLIE BENITES ORDERLIES TEACHER-GAS PROVER Facility:[facility] Start: 03-29-2024 ambulatory Nicol Ayde AndersonMeet USER EXPERIENCE ANALYST Fa cility:[facility] Start: 03-22-2024 ambulatory Nicol E Meet USER EXPERIENCE ANALYST Fa cility:[facility] Start: 03-15-2024 ambulatory Nicol E Meet USER EXPERIENCE ANALYST Fa cility:[facility] Start: 03-15-2024 End: 03-15-2024 ambulatory GAVINO AG Facility:B Start: 03-15-2024 End: 03-15-2024 Patient encounter procedure GAVINO AG ORDERLIES TEACHER-GAS PROVER [facility] Start: 02-17-2024 End: 02-17-2024 ambulatory SHAR DOWNS Facility:[id number] Start: 02-17-2024 End: 02-17-2024 Patient encounter procedure Shar Downs MD Work Phone: Urology Comment on above: Difficulty urinating (Primary Dx) Start: 01-28-2024 End: 01-28-2024 ambulatory KELLIE BENITES ORDERLIES TEACHER-GAS PROVER Facility:[facility] Start: 01-28-2024 End: 01-28-2024 Patient encounter procedure GAVINO AG ORDERLIES TEACHER-GAS PROVER [facility] Start: 01-21-2024 End: 01-21-2024 Emergency department patient visit FERNANDO ZEE MD [facility] Start: 01-19-2024 Telephone encounter Que Downs MD Work Phone: Urology Comment on above: Appointment Start: 01-12-2024 End: 01-12-2024 Patient encounter procedure Shar Downs MD Work Phone: Urology Comment on above: Difficulty urinating (Primary Dx); Benign prostatic hyperplasia with urinary retention Start: 01-12-2024 End: 01-12-2024 ambulatory SHAR DOWNS Facility:[id number] Start: 11-30-2023 ambulatory KELLIE BENITES ORDERLIES TEACHER-GAS PROVER Fa cility:A Start: 11-13-2023 End: 11-14-2023 Emergency department patient visit FERNANDO ZEE MD [facility] Start: 11-03-2023 Non-patient / Non-visit USER EXPERIENCE ANALYST-C Kellie Baltes USER EXPERIENCE ANALYST Work Phone: [facility] [facility] Start: 11-03-2023 Non-patient / Non-visit USER EXPERIENCE ANALYST-C Kellie Baltes USER EXPERIENCE ANALYST Work Phone: [facility] Work Phone: Start: 11-02-2023 Non-patient / Non-visit USER EXPERIENCE ANALYST-C Kellie Baltes USER EXPERIENCE ANALYST Work Phone: [facility] Work Phone: Start: 11-02-2023 Non-patient / Non-visit USER EXPERIENCE ANALYST-C Kellie Baltes USER EXPERIENCE ANALYST Work Phone: [facility] Start: 11-01-2023 Non-patient / Non-visit USER EXPERIENCE ANALYST-C Kellie Baltes USER EXPERIENCE ANALYST Work Phone: [facility] Start: 11-01-2023 Non-patient / Non-visit USER EXPERIENCE ANALYST-C Kellie Jacksontes USER EXPERIENCE ANALYST Work Phone: [facility] Work Phone: Start: 10-31-2023 Non-patient / Non-visit USER EXPERIENCE ANALYST-C Kellie Jacksontes USER EXPERIENCE ANALYST Work Phone: [facility] Start: 10-31-2023 Non-patient / Non-visit USER EXPERIENCE ANALYST-C Kellie Baltes USER EXPERIENCE ANALYST Work Phone: [facility] Work Phone: Start: 10-30-2023 Non-patient / Non-visit USER EXPERIENCE ANALYST-C Kellie Baltes USER EXPERIENCE ANALYST Work Phone: [facility] Work Phone: Start: 10-29-2023 Non-patient / Non-visit USER EXPERIENCE ANALYST-C Kellie Jacksontes USER EXPERIENCE ANALYST Work Phone: [facility] Work Phone: Start: 10-28-2023 End: 11-03-2023 Evaluation and management of inpatient [facility] Work Phone: Start: 10-28-2023 End: 11-03-2023 observation encounter USER EXPERIENCE ANALYST-C Kellie Benites USER EXPERIENCE ANALYST Work Phone: [facility] Work Phone: Start: 10-27-2023 ambulatory KELLIE BENITES ORDERLIES TEACHER-GAS PROVER Fa cility:A Start: 10-26-2023 Telephone encounter Donovan whelan MD Work Phone: Hematology/Oncology Comment on above: New Patient Start: 10-13-2023 End: 10-27-2023 Evaluation and management of inpatient DANIE ALBERTO MD FACP [facility] Start: 10-07-2023 End: 10-13-2023 Evaluation and management of inpatient DANIE ALBERTO MD FACP [facility] Start: 10-03-2023 End: 10-07-2023 Evaluation and management of inpatient WU WADSWORTH ORDERLIES TEACHER-GAS PROVER [facility] Start: 09-30-2023 ambulatory KELLIE BALTES ORDERLIES TEACHER-GAS PROVER Fa cility:B Start: 07-23-2023 End: 07-23-2023 ambulatory KELLIE BALTES ORDERLIES TEACHER-GAS PROVER Facility:B Start: 07-23-2023 End: 07-23-2023 Patient encounter procedure KELLIE BALTES ORDERLIES TEACHER-GAS PROVER [facility] Start: 07-13-2023 ambulatory KELLIE BALTES ORDERLIES TEACHER-GAS PROVER Fa cility:B Start: 06-11-2023 End: 06-11-2023 ambulatory KELLIE BALTES ORDERLIES TEACHER-GAS PROVER Facility:B Start: 06-11-2023 End: 06-11-2023 Patient encounter procedure KELLIE BALTES ORDERLIES TEACHER-GAS PROVER [facility] Start: 05-13-2023 End: 05-13-2023 ambulatory KELLIE BALTES ORDERLIES TEACHER-GAS PROVER Facility:B Start: 04-15-2023 End: 04-15-2023 ambulatory KELLIE BALTES ORDERLIES TEACHER-GAS PROVER Facility:B Start: 03-16-2023 End: 03-16-[address] ANDREW MORRIS MD [facility] Start: 03-08-2023 End: 03-08-2023 Patient encounter procedure GAVINO KIMBERLI ORDERLIES TEACHER-GAS PROVER [facility] Start: 01-26-2023 End: 01-26-2023 SAME DAY STAY NAHUM MARIN MD [facility] Start: 01-20-2023 End: 01-20-2023 Patient encounter procedure GAVINO AG ORDERLIES TEACHER-GAS PROVER [facility] Start: 01-08-2023 End: 01-08-2023 Patient encounter procedure KELLIE BENITES ORDERLIES TEACHER-GAS PROVER [facility] Start: 01-04-2023 End: 01-04-2023 Emergency department patient visit LILIA ERNANDEZ MD [facility] Start: 05-25-2022 End: 05-25-2022 Patient encounter procedure GAVINO AG ORDERLIES TEACHER[facility] Start: 05-12-2022 End: 05-12-2022 Patient encounter procedure GAVINO AG ORDERLIES TEACHER-GAS PROVER [facility] Start: 03-31-2022 End: 03-31-2022 Patient encounter procedure YADIEL TORRES ORDERLIES TEACHER-GAS PR[facility] Start: 03-02-2022 End: 03-02-2022 Patient encounter procedure YADIEL TORRES ORDERLIES TEACHER-GAS PROVER [facility] Start: 11-25-2021 End: 11-25-[address] SANDRA BIANCHI MD [facility] Start: 11-03-2021 End: 11-03-[address] MARLINE PENDLETON MD [facility] Start: 10-24-2021 End: 10-24-[address] MARLINE PENDLETON MD [facility] Start: 09-09-2021 End: 09-09-[address] MARLINE PENDLETON MD [facility] Start: 08-05-2021 End: 08-05-[address] SANDRA BIANCHI MD [facility] Start: 07-02-2021 End: 07-02-2021 Patient encounter procedure KELLIE BENITES ORDERLIES TEACHER-GAS PROVER [facility] Start: 06-24-2021 End: 06-24-2021 Patient encounter procedure ARCHIE LINO ORDERLIES TEACHER-GAS PR[facility] Start: 06-23-2021 End: 06-27-2021 Outreach Lab ARCHIE LINO ORDERLIES TEACHER-GAS PR[facility] Start: 06-09-2021 End: 06-09-[address] DELORIS GUTIERRES DO [facility] Start: 06-06-2021 End: 06-06-[address] DELORIS GUTIERRES DO [facility] Start: 06-06-2021 End: 06-06-2021 Patient encounter procedure YADIEL TORRES ORDERLIES TEACHER-GAS PROVER [facility] Start: 03-25-2012 End: 03-25-2012 Patient encounter procedure Elda Wen (Maximilian) Alex Work Phone: [facility] Start: 03-25-2012 Results Only Elda flores (Hist) [place] Work Phone: [facility] Start: 07-11-2011 End: 07-11-2011 Patient encounter procedure Elda Wen (Hist) [place] Work Phone: [facility] Start: 07-11-2011 Results Only Elda flores (Hist) [place] Work Phone: [facility] Procedures Date Procedure Procedure Detail Performing Clinician Start: 01-06-2025 Blood count smear mc rscp w/mnl difrntl wbc count Dr. Juan Cunha DO Work Phone: Start: 01-06-[address] Juan Cunha DO Work Phone: Start: 01-06-2025 Mean corpuscular hem oglobin concentration determination Dr. Juan Cunha DO Work Phone: Start: 01-06-2025 Nucleated red blood cell count procedure Dr. Juan Cunha DO Work Phone: Start: 01-06-2025 Platelet mean volume determination Dr. Juan Cunha DO Work Phone: Start: 01-05-[address] Juan Cunha DO Work Phone: Start: 01-05-2025 Plain chest X-ray Dr. Ileana Cunha DO Work Phone: Start: 01-05-2025 Blood count smear mc rscp w/mnl difrntl wbc count Dr. Juan Cunha DO Work Phone: Start: 01-05-2025 Mean corpuscular hem oglobin concentration determination Dr. Juan Cunha DO Work Phone: Start: 01-05-2025 Nucleated red blood cell count procedure Dr. Juan Cunha DO Work Phone: Start: 01-05-2025 Platelet mean volume determination Dr. Juan Cunha DO Work Phone: Start: 01-05-2025 Urine microscopy: red cells Dr. Juan Cunha DO Work Phone: Start: 01-05-2025 Urnls dip stick/tabl et reagent auto microscopy Dr. Juan Cunha DO Work Phone: Start: 01-05-2025 CT of head without contrast Dr. Juan Cunha DO Work Phone: Start: 11-21-2024 Creatinine blood [facility] Start: 10-18-2024 Blood count smear mc rscp w/mnl difrntl wbc count Dr. Juan Cunha DO Work Phone: Start: 10-18-[address] Moshe Kitchen MD Work Phone: Start: 10-18-2024 Mean corpuscular hem oglobin concentration determination Dr. Juan Cunha DO Work Phone: Start: 10-18-2024 Nucleated red blood cell count procedure Dr. Juan Cunha DO Work Phone: Start: 10-18-2024 Platelet mean volume determination Dr. Juan Cunha DO Work Phone: Start: 10-16-[address] Moshe Kitchen MD Work Phone: Start: 10-14-2024 Gram stain microscopy D roger Kitchen MD Work Phone: Start: 10-14-2024 End: 10-14-2024 Microbial culture, routine Dr. Moshe Montes De Oca rn, MD Work Phone: Start: 10-13-[address] Moshe Kitchen MD Work Phone: Start: 10-13-[address] Emy Cunha DO Work Phone: Start: 10-13-2024 Calculation of international normalized ratio Dr. Juan Cunha DO Work Phone: Start: 10-12-2024 Blood count smear mc rscp w/mnl difrntl wbc count Dr. Juan Cunha DO Work Phone: Start: 10-12-[address] Moshe Kitchen MD Work Phone: Start: 10-12-2024 Mean corpuscular hem oglobin concentration determination Dr. Juan Cunha DO Work Phone: Start: 10-12-2024 Nucleated red blood cell count procedure Dr. Juan Cunha DO Work Phone: Start: 10-12-2024 Platelet mean volume determination Dr. Juan Cunha DO Work Phone: Start: 10-12-2024 Serum inorganic phos phate measurement Dr. Moshe Kitchen MD Work Phone: Start: 10-10-[address] Emy Cunha DO Work Phone: Start: 10-10-2024 CT of abdomen and pe lvis without contrast Dr. Moshe Kitchen MD Work Phone: Start: 10-10-2024 Plain chest X-ray Dr. Veronica Kitchen MD Work Phone: Start: 10-10-2024 Urine microscopy: red cells Dr. Juan Cunha DO Work Phone: Start: 10-10-2024 Urnls dip stick/tabl et reagent auto microscopy Dr. Moshe Ktichen MD Work Phone: Start: 10-10-2024 Calculation of international normalized ratio Dr. Juan Cunha DO Work Phone: Start: 10-10-[address] Moshe Kitchen MD Work Phone: Start: 10-10-2024 Identification proce dure for living organism Dr. Moshe Kitchen MD Work Phone: Start: 10-10-2024 SARS-CoV-2, Influenz a & RSV (PCR) Dr. Moshe Kitchen MD Work Phone: Start: 10-10-[address] Moshe Kitchen MD Work Phone: Start: 10-10-2024 Dr. Juan Cunha DO Work Phone: Start: 09-16-2024 Plain chest X-ray Dr. Tayler Reyna DO Work Phone: Start: 09-16-2024 Urine microscopy: red cells Dr. Juan Cunha DO Work Phone: Start: 09-16-2024 Urnls dip stick/tabl et reagent auto microscopy Dr. Moshe Kitchen MD Work Phone: Start: 09-16-2024 CT cervical spine wi thout contrast Dr. Ignacia Reyna DO Work Phone: Start: 09-16-2024 Computed tomography of abdomen and pelvis with intravenous contrast Dr. Ignacia Reyna DO Work Phone: Start: 09-16-2024 CT of head without contrast Dr. Ignacia Reyna DO Work Phone: Start: 09-16-2024 Blood count smear mc rscp w/mnl difrntl wbc count Dr. Juan Cunha DO Work Phone: Start: 09-16-[address] Moshe Kitchen MD Work Phone: Start: 09-16-2024 Mean corpuscular hem oglobin concentration determination Dr. Juan Cunha DO Work Phone: Start: 09-16-2024 Nucleated red blood cell count procedure Dr. Juan Cunha DO Work Phone: Start: 09-16-2024 Platelet mean volume determination Dr. Juan Cunha DO Work Phone: Start: 09-16-[address] Moshe Kitchen MD Work Phone: Start: 09-16-2024 SARS-CoV-2, Influenz a & RSV (PCR) Dr. Ignacia Reyna DO Work Phone: Start: 09-16-[address] Moshe Kitchen MD Work Phone: Start: 09-16-2024 Dr. Juan Cunha DO Work Phone: Start: 07-26-[address] Ignacia Reyna DO Work Phone: Start: 07-26-2024 Gram stain microscopy D roger Reyna DO Work Phone: Start: 07-26-2024 Microbial culture, routine Dr. Ignacia Reyna DO Work Phone: Start: 12-14-2023 Continuous wave ultr asonic Doppler FERNANDO ZEE MD Comment on above: [facility] scanned repo rt Start: 11-02-2023 Colonoscopy USER EXPERIENCE ANALYST-C Kellie Benites USER EXPERIENCE ANALYST Work Phone: Start: 10-28-2023 Plain chest X-ray Start: 07-12-2022 Cardioversion GAVINO F ESTEFANI ORDERLIES TEACHER-GAS PROVER Start: 03-25-2012 CONVERTED SURGICAL PATHOLOGY [facility] (Hist[facility] [place] Work Phone: Start: 07-11-2011 CONVERTED SURGICAL PATHOLOGY Charudutt Behzad (Hist) [place] Work Phone: Aortic valve structu re (body structure) YADIEL BRIAN ORDERLIES TEACHER-GAS PROVER Comment on above: pig valve Echocardiography MIRELA BARRONWally SO ORDERLIES TEACHER-GAS PROVER Excision of colon YADIEL JARRETT SPIVEY ORDERLIES TEACHER-GAS PROVER History of repair of inguinal hernia History of right inguinal hernia repair Dr. Ignacia Reyna DO Work Phone: Insertion of inferio r vena caval filter YADIEL TORRES ORDERLIES TEACHER-GAS PROVER Removal of inferior vena caval filter YADIEL TORRES ORDERLIES TEACHER-GAS PROVER Repair of inguinal hernia CHANTE TORRES ORDERLIES TEACHER-GAS PROVER Comment on above: Right x3 Urinary bladder stru cture (body structure) YADIEL TORRES ORDERLIES TEACHER-GAS PROVER Plan of Treatment Date Care Activity Detail Author Start: 01-04-2033 Urine microalbumin profile DTa P,Tdap,Td Vaccine (2 - Td or Tdap) [facility] Start: 2030 RSV Vaccine (1 - 1-d ose 75+ series) RSV Vaccine (1 - 1-dose 75+ series) [facility] Start: 11-24-2026 Diabetes Screening Diabetes Screenin g [facility] Start: 09-19-2025 End: 09-19-2025 Patient encounter procedure 09/19/2025 10:15 AM EDT Office Visit Urology [address] [place] [address] Shar Downs MD [address] [place] [address] one year to discuss procedure Urology Comment on above: one year to discuss procedure Start: 03-12-2025 Influenza vaccination Influenz a Vaccine (Season Ended) [facility] Start: 01-06-2025 [facility] Start: 01-06-2025 Patient discharge [facility] Start: 01-05-2025 Wound care [facility] Start: 01-05-2025 Following clinical p athway protocol [facility] Start: 01-05-2025 Assessment of risk o f venous thromboembolism [facility] Start: 01-05-2025 Care regimes management [facility] Start: 01-05-2025 Inhalation therapy procedure [facility] Start: 01-05-2025 Insertion of cathete r into peripheral vein [facility] Start: 01-05-2025 Measuring intake and output [facility] Start: 01-05-2025 Notification of physician [facility] Start: 01-05-2025 Providing care accor ding to standard [facility] Start: 01-05-2025 Provision of activit y privileges [facility] Start: 01-05-2025 Referral to occupati onal therapist [facility] Start: 01-05-2025 Referral to service [facility] Start: 01-05-2025 End: 01-05-2025 [facility] Start: 01-05-2025 Hospital admission, emergency, from emergency room, medical nature [facility] Start: 01-05-2025 Verification routine [facility] Start: 01-05-2025 Admission procedure [facility] Start: 01-05-2025 Urine culture [facility] Start: 01-05-2025 End: 01-05-2025 [facility] Start: 01-05-2025 Patient referral to dietitian [facility] Start: 12-07-2024 End: 12-07-2024 Patient encounter procedure 12/07/2024 8:00 AM EDT Office Visit Urology [address] [place] [address] Shar Downs MD [address] [place] [address] 11/15 LVM to call the office to r/s due to being out Urology Comment on above: 11/15 LVM to call the office to r/s due to being out Start: 10-18-2024 Patient discharge [facility] Start: 10-17-2024 [facility] Start: 10-16-2024 Blood culture Blood Culture [facility] Start: 10-16-2024 End: 10-16-2024 [facility] Start: 10-16-2024 Care regimes management [facility] Start: 10-16-2024 Notification of physician [facility] Start: 10-16-2024 Referral to service [facility] Start: 10-16-2024 Consultation [facility] Start: 10-15-2024 Wound care [facility] Start: 10-14-2024 Consultation for treatment [facility] Start: 10-14-2024 Referral to commercial correspondent [facility] Start: 10-13-2024 Consultation for treatment [facility] Start: 10-13-2024 Following clinical p athway protocol [facility] Start: 10-13-2024 Assessment of risk o f venous thromboembolism [facility] Start: 10-13-2024 Consultation [facility] Start: 10-13-2024 Insertion of cathete r into peripheral vein [facility] Start: 10-13-2024 Providing care accor ding to standard [facility] Start: 10-13-2024 Provision of activit y privileges [facility] Start: 10-13-2024 Referral to occupati onal therapist [facility] Start: 10-13-2024 Referral to service [facility] Start: 10-13-2024 [facility] Start: 10-13-2024 Hospital admission, emergency, from emergency room, medical nature [facility] Start: 10-13-2024 Bacteria identified in Blood by Culture Blood Culture [facility] Start: 10-13-2024 Admission procedure [facility] Start: 10-13-2024 Verification routine [facility] Start: 10-13-2024 [facility] Start: 10-12-2024 Patient discharge [facility] Start: 10-11-2024 Consultation for treatment [facility] Start: 10-11-2024 [facility] Start: 10-11-2024 Application of inter mittent pneumatic compression device [facility] Start: 10-11-2024 Continuous positive airway pressure ventilation treatment [facility] Start: 10-10-2024 [facility] Start: 10-10-2024 Verification routine [facility] Start: 10-10-2024 Assessment of risk o f venous thromboembolism [facility] Start: 10-10-2024 Care regimes management [facility] Start: 10-10-2024 Insertion of cathete r into peripheral vein [facility] Start: 10-10-2024 Measuring intake and output [facility] Start: 10-10-2024 Notification of physician [facility] Start: 10-10-2024 Providing care accor ding to standard [facility] Start: 10-10-2024 Provision of activit y privileges [facility] Start: 10-10-2024 Referral to occupati onal therapist [facility] Start: 10-10-2024 Referral to service [facility] Start: 10-10-2024 End: 10-10-2024 [facility] Start: 10-10-2024 Admission procedure [facility] Start: 10-10-2024 CT Abdomen and Pelvi s WO contrast [facility] Start: 10-10-2024 CT of abdomen and pe lvis without contrast Abdomen/Pelvis without Cont [facility] Start: 10-10-2024 Hospital admission, emergency, from emergency room, medical nature [facility] Start: 10-10-2024 [facility] Start: 10-10-2024 End: 10-10-2024 [facility] Start: 10-10-2024 Bacteria identified in Blood by Culture Blood Culture [facility] Start: 10-10-2024 Bacteria identified in Urine by Culture Urine Culture [facility] Start: 10-10-2024 Blood culture Blood Culture [facility] Start: 10-10-2024 Inhalation therapy procedure [facility] Start: 09-22-2024 End: 09-22-2024 Patient encounter procedure 09/22/2024 8:40 AM EDT Office Visit Urology [address] [place] [address] Isabela Campbell, ORDERLIES TEACHER.GAS PROVER [address] [place], [place] [id number] 6 month follow up Urology Comment on above: 6 month follow up Start: 09-17-2024 [facility] Start: 09-16-2024 End: 09-16-2024 [facility] Start: 09-16-2024 Bacteria identified in Blood by Culture Blood Culture [facility] Start: 09-16-2024 Bacteria identified in Urine by Culture Urine Culture [facility] Start: 08-22-2024 End: 08-22-2024 Patient encounter procedure 08/22/2024 1:40 PM EST Office Visit Urology [address] [place] [place] [address] Isabela Campbell, ORDERLIES TEACHER.GAS PROVER [address] [place] [address] 6 month follow up Urology Comment on above: 6 month follow up Start: 07-12-2024 Advance Directive Discussion Advance Directive Discussion [facility] Start: 06-05-2024 Patient discharge [facility] Start: 06-05-2024 Anes integ musc & nr v head neck&posterior trunk ANESTH HEAD/NECK/PTRUNK [facility] Start: 06-05-2024 Priscilla skn sub grft t/a /l area/100sq cm /<1st 25 SKIN SUB GRAFT TRNK/ARM/LEG [facility] Start: 06-05-2024 Prep site trunk/arm/ leg 1st 100 sq cm/1pct WOUND PREP TRK/ARM/LEG [facility] Start: 03-12-2024 Covid-19 Vaccine ( season) Covid-19 Vaccine ( season) [facility] Start: 03-12-2024 Influenza vaccination [facility] Start: 02-17-2024 End: 02-17-2024 Patient encounter procedure 02/17/2024 8:30 AM EDT Office Visit Urology [address] [place] [address] Shar Downs MD [address] [place], [place] [id number] [facility] Urology Comment on above: [facility] Start: 01-26-2024 End: 01-26-2024 Patient encounter procedure 01/26/2024 2:30 PM EDT Office Visit Urology [address] [place] [address] Shar Downs MD [address] [place], [place] [id number] [facility] U[facility] Comment on above: [facility] Start: 11-03-2023 Patient discharge [facility] Start: 11-01-2023 [facility] Start: 11-01-2023 Referral for further care [facility] Start: 10-31-2023 Referral to gastroenterology service [facility] Start: 10-29-2023 Consultation for treatment [facility] Start: 10-29-2023 Wound care [facility] Start: 10-28-2023 Following clinical p athway protocol [facility] Start: 10-28-2023 Application of elast ic bandage [facility] Start: 10-28-2023 Assessment of risk o f venous thromboembolism [facility] Start: 10-28-2023 Care regimes management [facility] Start: 10-28-2023 Continuous positive airway pressure ventilation treatment [facility] Start: 10-28-2023 Elevation of affecte d extremity [facility] Start: 10-28-2023 Fall prevention [facility] Start: 10-28-2023 Incentive spirometry [facility] Start: 10-28-2023 Inhalation therapy procedure [facility] Start: 10-28-2023 Insertion of cathete r into peripheral vein [facility] Start: 10-28-2023 Introduction of urin silva catheter [facility] Start: 10-28-2023 Measuring intake and output [facility] Start: 10-28-2023 Notification of physician [facility] Start: 10-28-2023 Oxygen therapy [facility] Start: 10-28-2023 Providing care accor ding to standard [facility] [place] Start: 10-28-2023 Provision of activit y privileges [facility] Start: 10-28-2023 Referral to occupati onal therapist [facility] Start: 10-28-2023 Referral to service [facility] Start: 10-28-2023 [facility] Start: 10-28-2023 Verification routine [facility] Start: 10-28-2023 Admission procedure [facility] Start: 10-28-2023 Hospital admission, emergency, from emergency room, medical nature [facility] Start: 10-28-2023 Referral to service [facility] Start: 10-28-2023 [facility] Start: 10-28-2023 Patient referral to dietitian [facility] Start: 07-12-2023 Advance Directive Discussion Advance Directive Discussion [facility] Start: 07-12-2023 Behavioral Health Screening Be havioral Health Screening [facility] Start: 06-13-2023 Pneumococcal Vaccine : 65+ (3 of 3 - PPSV23 or PCV20) Pneumococcal Vaccine: 65+ (3 of 3 - PPSV23 or PCV20) [facility] Start: 03-12-2023 Covid-19 Vaccine ( season) Covid-19 Vaccine ( season) [facility] Start: 03-12-2023 Covid-19 Vaccine ( season) Covid-19 Vaccine () [facility] Start: 2020 Pneumococcal Vaccine : 65+ (1 of 1 - PCV) Pneumococcal Vaccine: 65+ (1 of 1 - PCV) [facility] Start: 08-11-2017 Shingrix Vaccine (2 of 3) Sage grix Vaccine (2 of 3) [facility] Start: 02-01-2016 Diabetes Screening Diabetes Screenin g [facility] Start: 2015 RSV Vaccine (1 - 1-d ose 60+ series) RSV Vaccine (1 - 1-dose 60+ series) [facility] Start: 2015 RSV Vaccine (1 - Ris k 60-74 years 1-dose series) RSV Vaccine (1 - Risk 60-74 years 1-dose series) [facility] Start: 2010 Prostate specific an tigen measurement Prostate Cancer Screening Discussion [facility] Start: 2005 Shingrix Vaccine (1 of 2) Sage grix Vaccine (1 of 2) [facility] Start: 2000 Screening for malign ant neoplasm of colon [facility] Start: 1990 Lipid panel Lipid Screening [facility] Start: 1974 Urine microalbumin profile DTa P,Tdap,Td Vaccine (1 - Tdap) [facility] Start: 1973 Anxiety Screening Anxiety Screening [facility] Start: 1973 Depression Screening Depression Scre ening [facility] Start: 1973 Hepatitis C screening Hepatitis C Sc josefa [facility] Start: 1955 Abdominal aortic ane urysm screening Abdominal Aortic Aneurysm Screening [facility] CT Kidney WO and W c ontrast IV CT KIDNEY WO/W IVCON Radiology Routine Renal mass, left Other specified disorders of kidney and ureter 11/21/2024 11:34 AM EDT [facility] Work Phone: Cystourethroscopy CYSTO.PANENDO Procedures Routine Difficulty urinating Ordered: 02/17/2024 [facility] Comment on above: Ordered: 02/17/2024 MARTINES - DISCONTINUE MARTINES - DISC ONTINUE Procedures Routine Difficulty urinating Ordered: 02/17/2024 [facility] Work Phone: Comment on above: Ordered: 02/17/2024 Patient Education [facility] Work Phone: Patient referral [facility] Work Phone: Urine culture [facility] Urine culture [facility] Immunizations Immunization Date Immunization Notes Care Provider Frank kemp 04-23-2023 influenza, injectabl e, quadrivalent, preservative free Dr. Moshe Kitchen MD Work Phone: [facility] 04-23-2023 influenza, high dose seasonal, preservative-free; Translations: [Fluad Quadrivalent PF ] KELLIE BENITES ORDERLIES TEACHER-GAS PROVER [facility] 04-23-2023 influenza virus vaccine, unspecified formulation Shar Downs MD Work Phone: [facility] 01-04-2023 tetanus toxoid, redu elvia diphtheria toxoid, and acellular pertussis vaccine, adsorbed LILIA ERNANDEZ MD [facility] 04-22-2022 influenza, high dose seasonal, preservative-free GAVINO AG ORDERLIES TEACHER-GAS PROVER [facility] 03-05-2022 COVID-19, mRNA, LNP- S, PF, 100 mcg or 50 mcg dose; Translations: [Moderna COVID-19 Vaccine] YADIEL TORRES ORDERLIES TEACHER-GAS PROVER [facility] 06-23-2021 COVID-19, mRNA, LNP- S, PF, 100 mcg/ 0.5 mL dose; Translations: [Moderna COVID-19 Vaccine] ARCHIE LINO ORDERLIES TEACHER-[employer]AS PR[facility] 05-01-2021 influenza, high dose seasonal, preservative-free; Translations: [Fluad Quadrivalent PF ] YADIEL TORRES ORDERLIES TEACHER-GAS PROVER [facility] 10-26-2020 SARS-CoV-2 mRNA (tozinameran) vaccine YADIEL TORRES ORDERLIES TEACHER-GAS PROVER [facility] 10-05-2020 SARS-CoV-2 mRNA (tozinameran) vaccine YADIEL TORRES ORDERLIES TEACHER-GAS PROVER [facility] 04-25-2020 influenza, injectabl e, quadrivalent, preservative free; Translations: [Fluarix PF Quadrivalent ] YADIEL TORRES ORDERLIES TEACHER-GAS PROVER [facility] 05-04-2019 influenza, injectabl e, quadrivalent, preservative free; Translations: [Fluarix PF Quadrivalent ] YADIEL TORRES ORDERLIES TEACHER-[employer]AS PROVER [facility] 06-13-2018 pneumococcal polysaccharide vaccine, 23 valent YADIEL TORRES ORDERLIES TEACHER[employer] PR[employer] [facility] 04-07-2018 influenza virus vaccine, unspecified formulation YADIEL TORRES ORDERLIES TEACHER[employer] PR[employer] [facility] 06-16-2017 pneumococcal conjuga te vaccine, 13 valent YADIEL TORRES ORDERLIES TEACHER[employer] [facility] 06-16-2017 zoster vaccine, live YADIEL TORRES ORDERLIES TEACHER[employer] PR[employer] [facility] 04-03-2017 influenza virus vaccine, unspecified formulation YADIEL TORRES ORDERLIES TEACHER[employer]AS PROVER [facility] 07-14-2016 pneumococcal polysaccharide vaccine, 23 valent YADIEL TORRES ORDERLIES TEACHER[employer] PR[employer] [facility] 07-10-2016 pneumococcal polysaccharide vaccine, 23 valent YADIEL TORRES ORDERLIES TEACHER[employer] PROVER [facility] 2016 influenza virus vaccine, unspecified formulation YADIEL TORRES ORDERLIES TEACHER[employer] PROVER [facility] 05-04-2015 influenza virus vaccine, unspecified formulation YADIEL TORRES ORDERLIES TEACHER[employer] PR[employer] [facility] 04-08-2014 influenza virus vaccine, unspecified formulation YADIEL TORRES ORDERLIES TEACHER[employer] PROVER [facility] 05-08-1999 pneumococcal polysaccharide vaccine, 23 valent YADIEL TORRES ORDERLIES TEACHER[employer]AS PROVER [facility] Payers Date Payer Category Payer Self-pay [id number] 2023 Medicare (Managed Care) PRIMETIM E [id number] 2023 Medicare [id number] 2021 Private Health Insurance [id number] 2021 Unknown [id number] 2021 Unknown [id number] 2013 Private Health Insurance [id number] 1955 Unknown [id number] 2.16.840.1.675686.3.579.2.6 27 1955 Unknown [id number] 2.16.840.1.596854.3.579.2.6 27 1955 Unknown [id number] 2.16.840.1.837749.3.579.2.6 27 1955 Unknown [id number] 2.16.840.1.448456.3.579.2.6 27 1955 Unknown [id number] 2.16.840.1.753277.3.579.2.6 27 1955 Unknown [id number] 2.16.840.1.042764.3.579.2.6 27 1955 Unknown [id number] 2.16.840.1.341334.3.579.2.6 27 1955 Unknown [id number] 2.16.840.1.004708.3.579.2.6 27 1955 Unknown [id number] 2.16.840.1.089612.3.579.2.6 27 1955 Unknown [id number] 2.16.840.1.478145.3.579.2.6 27 1955 Unknown [id number] 2.16.840.1.343416.3.579.2.6 27 1955 Unknown [id number] 2.16.840.1.308480.3.579.2.6 27 1955 Unknown [id number] 2.16.840.1.414237.3.579.2.6 27 1955 Unknown [id number] 2.16.840.1.080377.3.579.2.6 27 1955 Unknown [id number] 2.16.840.1.026959.3.579.2.6 27 1955 Unknown [id number] 2.16.840.1.170314.3.579.2.6 27 1955 Unknown [id number] 2.16.840.1.873848.3.579.2.6 27 1955 Unknown [id number] 2.16.840.1.159787.3.579.2.6 27 1955 Unknown [id number] 2.16.840.1.567977.3.579.2.6 27 1955 Unknown [id number] 2.16.840.1.775488.3.579.2.6 27 1955 Unknown [id number] 2.16.840.1.339797.3.579.2.6 27 1955 Unknown [id number] 2.16.840.1.105272.3.579.2.6 27 1955 Unknown [id number] 2.16.840.1.147233.3.579.2.6 27 Unknown ANTHEM [id number] Unknown [employer] H [employer] PLAN [id number] Unknown [facility] [id number] Unknown [id number] 2.16.840.1.419030.3.579.2.4 62 Unknown [id number] 2.16.840.1.784095.3.579.2.4 62 Unknown [id number] 2.16.840.1.323509.3.579.2.4 62 Unknown [id number] 2.16.840.1.290744.3.579.2.4 62 Unknown [id number] 2.16.840.1.476916.3.579.2.4 62 Unknown [id number] 2.16.840.1.448111.3.579.2.4 62 Unknown [id number] 2.16.840.1.731090.3.579.2.4 62 Unknown [id number] 2.16.840.1.375013.3.579.2.4 62 Unknown [id number] 2.16.840.1.324022.3.579.2.4 62 Unknown [id number] 2.16.840.1.286878.3.579.2.4 62 Unknown [id number] 2.16.840.1.209318.3.579.2.4 62 Unknown [id number] 2.16.840.1.668729.3.579.2.4 62 Unknown [id number] 2.16.840.1.000532.3.579.2.4 62 Unknown [id number] 2.16.840.1.840085.3.579.2.4 62 Unknown [id number] 2.16.840.1.229878.3.579.2.4 62 Unknown [id number] 2.16.840.1.482736.3.579.2.4 62 Unknown [id number] 2.16.840.1.694873.3.579.2.4 62 Unknown [id number] 2.16.840.1.223905.3.579.2.4 62 Unknown [id number] 2.16.840.1.074483.3.579.2.4 62 Unknown [id number] 2.16.840.1.164085.3.579.2.4 62 Unknown [id number] 2.16.840.1.401006.3.579.2.4 62 Unknown [id number] 2.16.840.1.475566.3.579.2.4 62 Unknown [id number] 2.16.840.1.588924.3.579.2.4 62 Unknown [id number] 2.16.840.1.331553.3.579.2.4 62 Unknown [id number] 2.16.840.1.876754.3.579.2.4 62 Unknown [id number] 2.16.840.1.870220.3.579.2.4 62 Unknown [id number] 2.16.840.1.239848.3.579.2.4 62 Unknown [id number] 2.16.840.1.054115.3.579.2.4 62 Unknown [id number] 2.16.840.1.880348.3.579.2.4 62 Unknown [id number] 2.16.840.1.268535.3.579.2.4 62 Unknown [id number] 2.16.840.1.406067.3.579.2.4 62 Unknown [id number] 2.16.840.1.824785.3.579.2.4 62 Unknown [id number] 2.16.840.1.185975.3.579.2.4 62 Unknown [id number] 2.16.840.1.995620.3.579.2.4 62 Unknown [id number] 2.16.840.1.649489.3.579.2.4 62 Social History Date Type Detail Facility Tobacco smoking stat [facility] Unknown if ever smoked [facility] Start: 1955 Sex Assigned At Not on file [facility] Start: 02-28-2021 End: 01-05-2025 Ex-smoker (finding) [facility] Start: 1955 Sex Assigned At Male A [facility] Start: 10-28-2023 End: 10-28-2023 Tobacco smoking status WIIS Tobacco smoking consumption unknown [facility] Start: 01-12-2024 End: 11-01-2024 Gender identity Not on file [facility] Start: 03-17-2019 Spouse/ Signif icant Other [facility] End: 07-12-2003 History of tobacco use Current smoker [facility] End: 07-12-2003 History of tobacco use Cigarette Smoker [facility] Start: 01-12-2024 End: 09-22-2024 Tobacco use and exposure Smokeless tobacco non-user [facility] Start: 01-12-2024 End: 11-01-2024 Alcohol intake Ex-drinker (finding) [facility] Start: 01-12-2024 End: 11-01-2024 History of Social function [facility] National Score (1-10 0), lower number is lower risk 56 [facility] Sexual Orientation [facility] Start: 06-05-2019 End: 10-18-2024 Sex Male (finding) [facility] Medical Equipment Procedure Code Equipment Code Equipment Origin al Text Equipment Identifier Dates Incision and drainage, abscess AXIOFILL,2000MG FDA Start: 01-06-2024 Incision and drainage, abscess AXIOFILL,2000MG FDA Start: 01-06-2024 Incision and drainage, abscess AXIOFILL,2000MG FDA Start: 01-06-2024 Incision and drainage, abscess AXIOFILL,2000MG FDA Start: 01-06-2024 Incision and drainage, abscess AXIOFILL,2000MG FDA Start: 01-06-2024 Incision and drainage, abscess AXIOFILL,2000MG FDA Start: 01-06-2024 Incision and drainage, abscess AXIOFILL,2000MG FDA Start: 01-06-2024 Incision and drainage, abscess FDA Start: 01-06-2024 Incision and drainage, abscess FDA Start: 01-06-2024 Incision and drainage, abscess FDA Start: 01-06-2024 Incision and drainage, abscess AXIOFILL,2000MG FDA Start: 01-06-2024 Debridement, wound AXIOFILL,1000MG FDA S tart: 06-05-2024 Debridement, wound AXIOFILL,1000MG FDA S tart: 06-05-2024 Debridement, wound AXIOFILL,1000MG FDA S tart: 06-05-2024 Debridement, wound AXIOFILL,1000MG FDA S tart: 06-05-2024 Debridement, wound AXIOFILL,1000MG FDA S tart: 06-05-2024 Debridement, wound AXIOFILL,1000MG FDA S tart: 06-05-2024 Debridement, wound AXIOFILL,1000MG FDA S tart: 06-05-2024 Debridement, wound FDA Start: 06-05-2024 Debridement, wound FDA Start: 06-05-2024 Debridement, wound FDA Start: 06-05-2024 Debridement, wound AXIOFILL,1000MG FDA S tart: 06-05-2024 [facility] [id number] FDA Start: 11-02-2023 See Instructions , BD UF 8mm 31 G (short)Use to inject insulin once daily, # 1 EA, 11 Refill(s), Pharmacy: [facility], 182.9, cm, 07/10/22 9:29:00 EST, Height, 166.8, kg, 07/10/22 9:29:00 EST, Dosing Weight Start: 12-15-2022 See Instructions , BD UF 8mm 31 G (short)Use to inject insulin once daily, # 1 EA, 11 Refill(s), Pharmacy: [facility], 182.9, cm, 07/10/22 9:29:00 EST, Height, 166.8, kg, 07/10/22 9:29:00 EST, Dosing Weight Start: 12-15-2022 See Instructions , BD UF 8mm 31 G (short)Use to inject insulin once daily, # 1 EA, 11 Refill(s), Pharmacy: [facility], 182.9, cm, 07/10/22 9:29:00 EST, Height, 166.8, kg, 07/10/22 9:29:00 EST, Dosing Weight Start: 12-15-2022 See Instructions , BD UF 8mm 31 G (short)Use to inject insulin once daily, # 1 EA, 11 Refill(s), Pharmacy: [facility], 182.9, cm, 07/10/22 9:29:00 EST, Height, 166.8, kg, 07/10/22 9:29:00 EST, Dosing Weight Start: 12-15-2022 See Instructions , BD UF 8mm 31 G (short)Use to inject insulin once daily, # 1 EA, 11 Refill(s), Pharmacy: [facility], 182.9, cm, 07/10/22 9:29:00 EST, Height, 166.8, kg, 07/10/22 9:29:00 EST, Dosing Weight Start: 12-15-2022 See Instructions , BD UF 8mm 31 G (short)Use to inject insulin once daily, # 1 EA, 11 Refill(s), Pharmacy: [facility], 182.9, cm, 07/10/22 9:29:00 EST, Height, 166.8, kg, 07/10/22 9:29:00 EST, Dosing Weight Start: 12-15-2022 See Instructions , BD UF 8mm 31 G (short)Use to inject insulin once daily, # 1 EA, 11 Refill(s), Pharmacy: [facility], 182.9, cm, 07/10/22 9:29:00 EST, Height, 166.8, kg, 07/10/22 9:29:00 EST, Dosing Weight Start: 12-15-2022 See Instructions , BD UF 8mm 31 G (short)Use to inject insulin once daily, # 1 EA, 11 Refill(s), Pharmacy: [facility], 182.9, cm, 07/10/22 9:29:00 EST, Height, 166.8, kg, 07/10/22 9:29:00 EST, Dosing Weight Start: 12-15-2022 See Instructions , BD UF 8mm 31 G (short)Use to inject insulin once daily, # 1 EA, 11 Refill(s), Pharmacy: [facility], 182.9, cm, 07/10/22 9:29:00 EST, Height, 166.8, kg, 07/10/22 9:29:00 EST, Dosing Weight Start: 12-15-2022 Goals Date Patient Goal Desired Activity /State Functional Status Date Assessment Result Facility 01-06-2025 Functional status Ambulates [facility] Work Phone: 10-18-2024 Functional status With Assist of 2 [facility] Work Phone: 10-17-2024 Functional status Ambulates;Bathroom Priv ilege [facility] Work Phone: 10-12-2024 Functional status Ambulates [facility] Work Phone: 07-29-2024 Functional Status Room check per formed, Financial Services Associate at bedside [facility] 07-29-2024 [facility] 07-28-[facility]24 [facility] 07-28[facility]24 [facility] 07-28[facility] Functional Status 100 [facility] 07-28-2024 Functional Status Valid [place] S[place] p yes, form complete [facility] 07-28-2024 Functional Status Pre-restraint Alternatives Attempted Enhanced observation, Reality orientation, Intervention attempted, not successful [facility] 04-08-2024 Functional Status Nurse Safety Yuki capone q2hrs Performed 7am-11am [facility] 04-08-2024 Functional Status [facility] 04-08-[facility]24 Functional Status Room check performed [facility] [place] [facility] 04-08-2024 Functional Status Denise [facility] 04-08-2024 Functional Status Denise [facility] 04-07-2024 Functional Status Supervised [facility] 04-07-2024 [facility] 04-06-2024 Functional Status 1st floor bedr oom, 1st floor bathroom, 1st floor laundry [facility] 04-06-2024 Functional Status Sensory Deficits None [facility] 04-06-2024 Functional Status Denise [facility] 04-04-2024 Functional Status Identified as high risk, Fall ID band on, Room located near nursing station, Non-Slip footwear, Financial Services Associate at bedside [facility] 01-21-2024 Functional Status Standard Safet y ID band on, Allergy Band on, Call device within reach, Bed in low position, Wheels locked, Upper/Half-Length side-rails up, Bedside Cart Locked, Safety level maintained [facility] 11-14-2023 Functional Status Activity Ngozi tance [facility] 11-13-2023 Functional Status Standard Safet y ID band on, Allergy Band on, Call device within reach, Bed in low position, Wheels locked, Upper/Half-Length side-rails up, personal items within reach, Bedside Cart Locked [facility] 11-03-2023 Functional status Ambulates [facility] Work Phone: 10-27-2023 Functional Status Breakfast Percent 100 A [facility] 10-27-2023 Functional Status Identified as high risk, Fall ID band on, Room located near nursing station, Bed alert on, Door open, Non-Slip footwear [facility] 10-27-2023 Functional Status Denise [facility] 10-27-2023 Functional Status Denise [facility] 10-26-2023 Functional Status Denise [facility] 10-26-2023 Functional Status Mod I Den[facility] 10-26-2023 Functional Status Lunch Percent 100 [facility] 10-26-2023 Functional Status Independent Denise [facility] 10-26-2023 Functional Status Denise [facility] 10-26-2023 Functional Status Denise [facility] 10-26-2023 Functional Status Assistive Device [facility] 10-25-2023 Functional Status Independent [facility] 10-25-2023 Functional Status [facility] 10-24-2023 Functional Status [facility] 10-24-2023 Functional Status [facility] 10-24-2023 Functional Status [facility] 10-24-2023 Functional Status [facility] 10-24-2023 Functional Status [facility] 10-23-2023 Functional Status [facility] 10-23-2023 Functional Status [facility] 10-22-2023 Functional Status [facility] 10-22-2023 Functional Status [facility] 10-21-2023 Functional Status [facility] [place] 10-21-2023 Functional Status Ambulation in [place], Up with assistance [facility] 10-21-2023 Functional Status Antiembolism S tocking On/Re-applied bilateral knee high [facility] 10-21-2023 Functional Status [facility]vised [facility] 10-21-[facility] Functional Status [facility] 10-20-2023 Functional Status [facility] 10-20-2023 Functional Status [facility] 10-19-2023 Functional Status [facility] 10-19-2023 Functional Status [facility] 10-18-2023 Functional Status [facility] 10-17-2023 Functional Status [facility] 10-16-2023 Functional Status [facility] 10-15-2023 Functional Status Denise Ho spital [facility] 10-15-2023 Functional [facility] 10-14-2023 Functional Status Front wheeled walker [facility] 10-14-2023 Functional Status 1st floor bedr oom, 1st floor bathroom, 1st floor laundry [facility] 10-13-2023 Functional Status Min A [facility] 10-12-2023 Functional Status Skin Care Prev entative Intervention(s) heel protectors on [facility] 10-12-2023 Functional Status [facility] 10-12-2023 Functional Status [facility] 10-12-2023 Functional Status [facility] 10-12-2023 Functional Status [facility] 10-12-2023 Functional Status bilateral knee high removed/off [facility] 10-12-2023 Functional Status Activity Ngozi tance Maximum assistance [facility] 10-11-2023 Functional Status Denise [facility] 10-11-2023 Functional Status One assist [facility] 10-11-2023 Functional Status [facility] 10-11-2023 Functional Status Linen Change Done [facility] 10-11-2023 Functional Status Oral Care Moderate assi stance [facility] 10-10-2023 Functional Status [facility] 10-10-2023 Functional Status [facility] 10-10-2023 Functional Status [facility] 10-09-2023 Functional Status [facility] 10-09-2023 Functional Status [facility] 10-09-2023 Functional Status [facility] 10-08-2023 Functional Status Dinner Percent 25 [facility] 10-08-2023 Functional Status Skin Care Prod uct Applied Skin moisturizer [facility] 10-08-2023 Functional Status Maintained [facility] 10-07-2023 Functional Status [facility] 10-07-2023 Functional Status Sensory Deficits None A [facility] 10-07-2023 Functional Status Identified as high risk, Fall ID band on, Room located near nursing station, Door open, Non-Slip footwear [facility] 10-07-2023 Functional Status [facility] 10-06-2023 Functional Status [facility] 10-06-2023 Functional Status [facility] 10-06-2023 Functional Status [facility] 10-06-2023 Functional Status [facility] 10-05-2023 Functional Status Moderate assistance [facility] 10-05-2023 Functional Status Patient refused 10 [facility] 10-05-2023 Functional Status [facility] 10-05-2023 Functional Status Mod A [facility] 10-04-2023 Functional Status [facility] 10-04-2023 Functional Status [facility] 10-04-2023 Functional Status [facility] 10-04-2023 Functional Status Mod A Denise [facility] 10-04-2023 Functional Status 1st floor bedr oom, 1st floor bathroom, 1st floor laundry [facility] 10-04-2023 Functional Status [facility] 10-03-2023 Functional Status Sensory Deficits None [facility] 03-16-2023 Functional [facility] 03-16-[facility]23 Functional Status Identified as high risk, Fall ID band on, Room located near nursing station, Door open, Non-Slip footwear, toileting offered, toileting refused, Room check performed, High risk door magnet present [facility] 03-16-2023 Functional Status Denise [facility] 01-26-2023 Functional Status Ambulating in room [facility] 01-26-2023 Functional Status Denise [facility] 01-26-2023 Functional Status Room check performed [facility] 01-04-2023 Functional Status Independent Den[facility] 01-04-2023 Functional Status Standard Safet y ID band on, Allergy Band on, Call device within reach, Bed in low position, Wheels [facility] 10-24-2021 [facility] 10-24-2021 Functional Status [facility] Mental Status Date Assessment Result Facility 01-06-2025 Cognitive function Voice/Name [facility] Work Phone: 10-18-2024 Cognitive function Voice/Name [facility] Work Phone: 10-13-2024 Cognitive function Level Of Cons ciousness Appropriate;Follows Commands [facility] Work Phone: 10-12-2024 Cognitive function Voice/Name [facility] Work Phone: 10-12-2024 Cognitive function Recent Impaired [facility] Work Phone: 07-28-2024 Mental Status Orientation Oriented x 4 [facility] [place] 07-28-2024 Mental Status [facility] 06-05-2024 Cognitive function Level Of Consciousness Sedated [facility] Work Phone: 06-05-2024 Cognitive function Patient Orien tation Person;Place;Time [facility] Work Phone: 04-08-2024 Mental Status Oriented x 4 [facility] 04-07-2024 Mental Status [facility] 04-07-2024 Mental Status [facility] 04-04-2024 Mental Status Orientation Oriented x 4 [facility] [place] 01-21-2024 Mental Status Orientation Oriented x 4 [facility] [place] 11-14-2023 Mental Status Orientation Oriented x 4 [facility] [place] 11-13-2023 Mental Status [facility] 11-03-2023 Cognitive function Voice/Name [facility] Work Phone: 10-28-2023 Cognitive function Voice/Name [facility] Work Phone: 10-27-2023 Mental Status Oriented x 4 [facility] 10-26-2023 Mental Status [facility] 10-26-2023 Mental Status [facility] 10-26-2023 Mental Status [facility] 10-13-2023 Mental Status Orientation Oriented x 4 [facility] 10-13-2023 Mental Status [facility] 10-13-2023 Mental Status [facility] 10-12-2023 Mental Status [facility] 10-12-2023 Mental Status [facility] 10-07-2023 Mental Status Oriented x 4 [facility] 10-06-2023 Mental Status [facility] 10-06-2023 Mental Status [facility] 10-06-2023 Mental Status [facility] 03-16-2023 Mental Status Oriented x 4 [facility] 03-16-2023 [facility] 01-26-2023 Mental Status Oriented x 4 [facility] 01-26-2023 [facility] 01-26-2023 Mental Status [facility] 01-04-2023 Mental Status Orientation Oriented x 4 [facility] [place] 10-24-2021 Mental Status [facility] 10-24-2021 Mental Status [facility] Clinical Notes 10-24-2021 to 01-24-2025 Note Date & Type Note Facility 01-24-2025 Progress note Note Date/Time January 24, 2025 12:05pm [facility] [place] [address] Progress Note - Wound Care 01/24/25 1200 MR#: [id number] Acct: [id number] Name: JADON ALVAREZ Rep #:[id number] : 1955 69 From: Aaron AVILA PCP: Kathleen Herzog MD Status:REG RCR Location: History of Present Illness Date of Service: 01/24/25 Chief Complaint: Right buttock ulceration History of Wound: Patient is 69-year-old male chronic ulceration to the lateral right leg stable with no sign of infection. Progress of Wound: Improving right leg ulceration Subjective Subjective Patient is a 69-year-old diabetic male presenting to wound care center today forfollow-up evaluation of full-thickness wound to lateral aspect of the right leg. Patient has been compliant with dressing changes at the nursing facility. He has not been very active and keeps mostly to himself in his room with elevation of the bilateral legs. His blood sugars well-controlled. Denies trauma. Denies constitutional symptoms. No other pedal complaints at this time. Objective Data Objective Data Vital Signs: Vital Signs Temp Pulse Resp BP 96.7 F L 56 L 16 135/71 H 01/24/25 09:48 01/24/25 09:48 01/24/25 09:48 01/24/25 09:48 Physical Exam Narrative Vascular: DP and PT pulses are palpable to the right lower extremity. Nonpitting edema appreciated to the right lower extremity. Skin temperature gradient is warm to warm from proximal ankles to distal digit. No focal increase appreciated. Evidence of varicosities appreciated left lower extremity. Neurological: Light touch intact. Patient response to painful stimuli. Protective sensation is diminished. Dermatological: Full-thickness ulceration to the lateral aspect of the right legmeasuring 3.7 x 1.4 x 0.1 cm. wound base is granular. No malodor or probe to bone. No sign of infection. Excisional debridement of the right leg lateral aspect full-thickness ulcerationdown to and including subcutaneous tissue with a number 5 mm dermal curette without incident. Predebridement measurement was 3.5 x 1.2 x 0.1 cm. Postdebridement measurement was 3.7 x 1.4 x 0.1 cm. Musculoskeletal: No pain to palpation to full-thickness ulceration. No pain with calf compression. Debridement Note Debridement Note Debridement Free Text: Excisional debridement of the right leg lateral aspect full-thickness ulceration down to and including subcutaneous tissue with a number 5 mm dermal curette without incident. Predebridement measurement was 3.5x 1.2 x 0.1 cm. Postdebridement measurement was 3.7 x 1.4 x 0.1 cm. Post-Debridement Measurements and Additional Note: Post-Debridement Measurements/Treatment - Nurse 1 - General Ulcer Assessment Start: 01/24/25 09:47 Freq: Status: Active Protocol: GALE Activity Type Activity Date Activity User E-sign Co-sign Detail Recorded Client Recorded Date Recorded By Document 01/24/25 09:48 CP [id number] 01/24/25 09:58 CP 01/24/25 09:48 - Today's Visit Information Type of service Follow-up Visit (Physician/GAS PROVER ) Arrival Mode Wheelchair Transfer Assistance Manual Transfer Assist (Other) 1 Patient Identification Verified (Name & Yes ) Safety Precautions Fall Prevention Vital Signs Temperature (97.8 F-99.1 F) 96.7 F L Temperature Source Temporal Pulse Rate (60-100) 56 L Pulse Location Monitor Respiratory Rate (12-18) 16 Respiratory rate source Observation Blood Pressure (90/60-120/80) 135/71 H Blood Pressure Mean (mm Hg) 92 Source Monitor Position Sitting Blood Pressure Location Right Arm History Since Last Visit- (Skip if this is Patient's initial visit) Have you changed medications since your No last visit? Any new allergies or adverse reactions No Had a fall/change in ADL's that may No increase risk of falls Signs or symptoms of abuse and/or No neglect since last visit Have you been in the hospital since your No last visit? Has dressing in place as prescribed Yes Has compression in place as prescribed Yes Has offloadiing in place as prescribed N/A Experienced any changes in pain level or No management Pain Scale: 0-10 Numeric Is Patient Pain Free? Yes - Nurse 1 - General Ulcer Measurement Start: 01/24/25 09:47 Freq: Status: Active Protocol: Activity Type Activity Date Activity User E-sign Co-sign Detail Recorded Client Recorded Date Recorded By Document 01/24/25 09:48 CP [id number] 01/24/25 09:58 CP 01/24/25 09:48 Wound Center Nurse 1 #5 RT LAT LE POST-OP -Current Size (cm) - Length 3.5 -Current Size (cm) - Width 1.4 -Current Size (cm) - Depth 0.1 -Total Square Cm 4.90 -Photo Taken Yes -Exudate Amt Small -Exudate Type Serosanguineous -Wound Margin Flat & Intact -Granulation Amt Large (67-100%) -Granulation Quality Red -Slough/Fibrin Yes -Necrosis Amt Small (1-33%) -Necrotic Tissue Type Adherent Slough -Structure Exposed N/A -Texture (Mariza-wound Skin Appearance) No Abnormality -Moisture (Mariza-wound Skin Appearance) No Abnormality -Color (Mariza-wound Skin Appearance) No Abnormality -Ulcer Cleansing Soap and Water -Foul Odor after Cleansing No -Anesthetic Used 5% Lidocaine Gel Right Calf (cm) 34.9 Right Ankle (cm) 24 WC - Nurse 2 - General Ulcer CM Notes Start: 01/24/25 09:47 Freq: Status: Active Protocol: Activity Type Activity Date Activity User E-sign Co-sign Detail Recorded Client Recorded Date Recorded By Document 01/24/25 10:09 TALI [id number] 01/24/25 10:09 TALI 01/24/25 10:09 Wound Center Nurse 2 #5 RT LAT LE POST-OP -Time 10:09 -Correct Patient Yes -Correct Side, Site, Position Yes -Correct Procedure Yes -Procedure Performed Yes -Type of Procedure Debridement -Clinical Debridement Subcutaneous -Tissue Removed Subcutaneous -Post Debridement (cm) - Length 3.7 -Post Debridement (cm) - Width 1.4 -Post Debridement (cm) - Depth 0.1 -Total Square (Post) (cm) 5.18 -Area of Debridement (cm) - Length 3.7 -Area of Debridement (cm) - Width 1.4 -Total Square (Area) (cm) 5.18 -Tunneling No -Undermining/Tunneling No -Circular Undermining No -Wound/Ulcer Outcome Not Healed -Ulcer Cleansing Rinsed/ Irrigated with Saline -Foul Odor after Cleansing No -Bioengineered Tissue No -Bleeding Controlled with Pressure -Treatment Response Procedure Tolerated Well -Offloading No -Debridement - Subq, 1st 20sq cm Yes Pain Scale: 0-10 Numeric Is Patient Pain Free? Yes CODY - Nurse 3 - General Ulcer D/C NN Start: 01/24/25 09:47 Freq: Status: Active Protocol: Activity Type Activity Date Activity User E-sign Co-sign Detail Recorded Client Recorded Date Recorded By Document 01/24/25 10:19 HANNAH [id number] 01/24/25 10:20 KW 01/24/25 10:19 Wound Care Center Nurse 3 #5 RT LAT LE POST-OP -Primary Dressing Applied Promogran Lalit Matter -Primary Dressing Covered/Secured with Dry Gauze & Roll Gauze, Secured with Tape -Promogran Lalit Matter 1 BLE -Compression Wrap Brittany Wrap Pain Scale: 0-10 Numeric Is Patient Pain Free? Yes WC - Visit Discharge Discharge Condition Stable Ambulatory Status Wheelchair Medication Reconcilliation completed & No provided to patient/care provider Clinical Summary of Care Provided Yes Assessment/Plan Assessment/Plan (1) Non-pressure chronic ulcer of 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: CODE(S): L97.212 - Non-pressure chronic ulcer of 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 PLAN: Patient was examined and evaluated. All findings were discussed with the patient. All questions were answered to the patient's satisfaction. Excisional debridement of the right leg lateral aspect full-thickness ulcerationdown to and including subcutaneous tissue with a number 5 mm dermal curette without incident. Predebridement measurement was 3.5 x 1.2 x 0.1 cm. Postdebridement measurement was 3.7 x 1.4 x 0.1 cm. The right lower extremities were cleaned and patted dry. Moist lalit was applied followed by dry sterile dressing and Tubigrip. Encouraged ambulation. Educated the patient continue rest and elevate his bilateral lower extremity. Educated patient on strict blood sugar control. Follow-up at the wound care center with Dr. Shannon in 1 week. 01/24/25 1205 <Electronically signed by Aaron Shannon DPM> Cosigner Signature (if applicable): CC: ~ Signed [facility] Work Phone: 1(354) 570-608007-16-2025 Progress note [facility] [address] [place] [address] Progress Note - Wound Care 01/24/25 1200 MR#: [id number] Acct: [id number] Name: JADON ALVAREZ Rep #:[id number] : 1955 69 From: Aaron Iniguez PM PCP: Kathleen Herzog MD Status:REG RCR Location: History of Present Illness Date of Service: 01/24/25 Chief Complaint: Right buttock ulceration History of Wound: Patient is 69-year-old male chronic ulceration to the lateral right leg stable with no sign of infection. Progress of Wound: Improving right leg ulceration Subjective Subjective Patient is a 69-year-old diabetic male presenting to wound care center today forfollow-up evaluation of full-thickness wound to lateral aspect of the right leg. Patient has been compliant with dressing changes at the nursing facility. He has not been very active and keeps mostly to himself in his room with elevation of the bilateral legs. His blood sugars well-controlled. Denies trauma. Denies constitutional symptoms. No other pedal complaints at this time. Objective Data Objective Data Vital Signs: Vital Signs Temp Pulse Resp BP 96.7 F L 56 L 16 135/71 H 01/24/25 09:48 01/24/25 09:48 01/24/25 09:48 01/24/25 09:48 Physical Exam Narrative Vascular: DP and PT pulses are palpable to the right lower extremity. Nonpitting edema appreciated to the right lower extremity. Skin temperature gradient is warm to warm from proximal ankles to distal digit. No focal increase appreciated. Evidence of varicosities appreciated left lower extremity. Neurological: Light touch intact. Patient response to painful stimuli. Protective sensation is diminished. Dermatological: Full-thickness ulceration to the lateral aspect of the right legmeasuring 3.7 x 1.4x 0.1 cm. wound base is granular. No malodor or probe to bone. No sign of infection. Excisional debridement of the right leg lateral aspect full-thickness ulcerationdown to and including subcutaneous tissue with a number 5 mm dermal curette without incident. Predebridement measurement was 3.5 x 1.2 x 0.1 cm. Postdebridement measurement was 3.7 x 1.4 x 0.1 cm. Musculoskeletal: No pain to palpation to full-thickness ulceration. No pain with calf compression. Debridement Note Debridement Note Debridement Free Text: Excisional debridement of the right leg lateral aspect full-thickness ulceration down to and including subcutaneous tissue with a number 5 mm dermal curette without incident. Predebridement measurement was 3.5x 1.2 x 0.1 cm. Postdebridement measurement was 3.7 x 1.4 x 0.1 cm. Post-Debridement Measurements and Additional Note: Post-Debridement Measurements/Treatment - Nurse 1 - General Ulcer Assessment Start: 01/24/25 09:47 Freq: Status: Active Protocol: GALE Activity Type Activity Date Activity User E-sign Co-sign Detail Recorded Client Recorded Date Recorded By Document 01/24/25 09:48 ZAKIA [id number] 01/24/25 09:58 01/24/25 09:48 - Today's Visit Information Type of service Follow-up Visit (Physician/GAS PROVER ) Arrival Mode Wheelchair Transfer Assistance Manual Transfer Assist (Other) 1 Patient Identification Verified (Name & Yes ) Safety Precautions Fall Prevention Vital Signs Temperature (97.8 F-99.1 F) 96.7 F L Temperature Source Temporal Pulse Rate (60-100) 56 L Pulse Location Monitor Respiratory Rate (12-18) 16 Respiratory rate source Observation Blood Pressure (90/60-120/80) 135/71 H Blood Pressure Mean (mm Hg) 92 Source Monitor Position Sitting Blood Pressure Location Right Arm History Since Last Visit- (Skip if this is Patient's initial visit) Have you changed medications since your No last visit? Any new allergies or adverse reactions No Had a fall/change in ADL's that may No increase risk of falls Signs or symptoms of abuse and/or No neglect since last visit Have you been in the hospital since your No last visit? Has dressing in place as prescribed Yes Has compression in place as prescribed Yes Has offloadiing in place as prescribed N/A Experienced any changes in pain level or No management Pain Scale: 0-10 Numeric Is Patient Pain Free? Yes - Nurse 1 - General Ulcer Measurement Start: 01/24/25 09:47 Freq: Status: Active Protocol: Activity Type Activity Date Activity User E-sign Co-sign Detail Recorded Client Recorded Date Recorded By Document 01/24/25 09:48 [id number] 01/24/25 09:58 01/24/25 09:48 Wound Center Nurse 1 #5 RT LAT LE POST-OP -Current Size (cm) - Length 3.5 -Current Size (cm) - Width 1.4 -Current Size (cm) - Depth 0.1 -Total Square Cm 4.90 -Photo Taken Yes -Exudate Amt Small -Exudate Type Serosanguineous -Wound Margin Flat & Intact -Granulation Amt Large (67-100%) -Granulation Quality Red -Slough/Fibrin Yes -Necrosis Amt Small (1-33%) -Necrotic Tissue Type Adherent Slough -Structure Exposed N/A -Texture (Mariza-wound Skin Appearance) No Abnormality -Moisture (Mariza-wound Skin Appearance) No Abnormality -Color (Mariza-wound Skin Appearance) No Abnormality -Ulcer Cleansing Soap and Water -Foul Odor after Cleansing No -Anesthetic Used 5% Lidocaine Gel Right Calf (cm) 34.9 Right Ankle (cm) 24 WC - Nurse 2 - General Ulcer CM Notes Start: 01/24/25 09:47 Freq: Status: Active Protocol: Activity Type Activity Date Activity User E-sign Co-sign Detail Recorded Client Recorded Date Recorded By Document 01/24/25 10:09 TALI [id number] 01/24/25 10:09 TALI 01/24/25 10:09 Wound Center Nurse 2 #5 RT LAT LE POST-OP -Time 10:09 -Correct Patient Yes -Correct Side, Site, Position Yes -Correct Procedure Yes -Procedure Performed Yes -Type of Procedure Debridement -Clinical Debridement Subcutaneous -Tissue Removed Subcutaneous -Post Debridement (cm) - Length 3.7 -Post Debridement (cm) - Width 1.4 -Post Debridement (cm) - Depth 0.1 -Total Square (Post) (cm) 5.18 -Area of Debridement (cm) - Length 3.7 -Area of Debridement (cm) - Width 1.4 -Total Square (Area) (cm) 5.18 -Tunneling No -Undermining/Tunneling No -Circular Undermining No -Wound/Ulcer Outcome Not Healed -Ulcer Cleansing Rinsed/ Irrigated with Saline -Foul Odor after Cleansing No -Bioengineered Tissue No -Bleeding Controlled with Pressure -Treatment Response Procedure Tolerated Well -Offloading No -Debridement - Subq, 1st 20sq cm Yes Pain Scale: 0-10 Numeric Is Patient Pain Free? Yes - Nurse 3 - General Ulcer D/C NN Start: 01/24/25 09:47 Freq: Status: Active Protocol: Activity Type Activity Date Activity User E-sign Co-sign Detail Recorded Client Recorded Date Recorded By Document 01/24/25 10:19 KW [id number] 01/24/25 10:20 HANNAH 01/24/25 10:19 Wound Care Center Nurse 3 #5 RT LAT LE POST-OP -Primary Dressing Applied Promogran Lalit Matter -Primary Dressing Covered/Secured with Dry Gauze & Roll Gauze, Secured with Tape -Promogran Lalit Matter 1 BLE -Compression Wrap Brittany Wrap Pain Scale: 0-10 Numeric Is Patient Pain Free? Yes WC - Visit Discharge Discharge Condition Stable Ambulatory Status Wheelchair Medication Reconcilliation completed & No provided to patient/care provider Clinical Summary of Care Provided Yes Assessment/Plan Assessment/Plan (1) Non-pressure chronic ulcer of 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: CODE(S): L97.212 - Non-pressure chronic ulcer of 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 PLAN: Patient was examined and evaluated. All findings were discussed with the patient. All questions were answered to the patient's satisfaction. Excisional debridement of the right leg lateral aspect full-thickness ulcerationdown to and including subcutaneous tissue with a number 5 mm dermal curette without incident. Predebridement measurement was 3.5 x 1.2 x 0.1 cm. Postdebridement measurement was 3.7 x 1.4 x 0.1 cm. The right lower extremities were cleaned and patted dry. Moist lalit was applied followed by dry sterile dressing and Tubigrip. Encouraged ambulation. Educated the patient continue rest and elevate his bilateral lower extremity. Educated patient on strict blood sugar control. Follow-up at the wound care center with Dr. Shannon in 1 week. 01/24/25 1205 Cosigner Signature (if applicable): CC: ~ Signed [facility]07-05-2025 Note. MICRO - Microbiology PROCEDURE: Urine Culture [O1 *1] SOURCE: Urine BODY SITE: COLLECTED DATE/TIME: 01/10/2025 22:47 EDT RECEIVED DATE/TIME: 01/11/2025 07:21 EDT START DATE/TIME: 01/11/2025 07:21 EDT FREE TEXT SOURCE: FINAL REPORTS Final Report [] Verified Date/Time/Personnel: 01/13/2025 08:18 EDT >100,000 cfu/ml Pseudomonas aeruginosa PRELIMINARY REPORTS Preliminary Report [] Verified Date/Time/Personnel: 01/12/2025 11:39 EDT >100,000 cfu/ml Pseudomonas aeruginosa KIARA to follow Preliminary Report [] Verified Date/Time/Personnel: 01/11/2025 07:59 EDT Specimen received in lab. SUSCEPTIBILITY RESULTS Pseudomonas aeruginosa Antibiotic KIARA Dilut KIARA Inter Aztreonam <=4 Susceptible Cefepime <=2 Susceptible Ceftazidime <=1 Susceptible Ciprofloxacin <=0.25 Susceptible ID Panel Not Not Applicable Applicable Imipenem <=1 Susceptible Levofloxacin <=0.5 Susceptible Meropenem <=1 Susceptible Piperacillin/ <=8 Susceptible Tazobactam Tobramycin <=2 Susceptible Order Comments O1: Urine Culture Added by Discern Performing Locations *1: This test was performed at: [facility], [address] [place] [address], [phone] , [facility] [id number] Emergency department Discharge summary Discharge Instructions Thank you for allowing [facility] to assist you with your healthcare needs. The following is importantdischarge information regarding your hospital visit. Diagnosis from Today's Visit Hematuria UTI (urinary tract infection) What to Do Next Instructions from Your Care Team Take Keflex as prescribed for UTI. Follow-up with Dr. Abraham of urology or urologist of your choosing given the UTI as well as hematuria with Martines catheter. Return emergency department immediately if you notice increased bleeding, Martines catheter not draining, fevers, abdominal pain, or any other care concern. If you do have increased bleeding would consider talking to your doctor about holding your Eliquis. No qualifying data available. Post Acute Orders No qualifying data available. Allergies Nuprin Unknown ibuprofen misc non-codified allergy unknown Medications Please ask your primary doctor or pharmacist before taking any other medication not listed, including over the counter drugs, herbal medications, vitamins and or supplements as they may interact withyour home medications. What How Much When Why Instructions Last Dose New cephalexin (cephalexin 500 mg oral capsule) 1 cap by mouth Four (4) times a day Duration: 7 Days Printed Prescription Unchanged amLODIPine (Norvasc 5 mg oral tablet) 1 tab(s) by mouth Once a day Unchanged apixaban (Eliquis 5 mg oral tablet) 1 tab(s) by mouth Two (2) times a day Unchanged ascorbic acid (Vitamin C 250 mg oral tablet) 1 tab(s) by mouth Once a day Unchanged aspirin (aspirin 81 mg oral tablet, chewable) 1 tab(s) Chewed Once a day Duration: 30 Days Unchanged atorvastatin (atorvastatin 20 mg oral tablet) 1 tab(s) by mouth Once a day Diabetes mellitus type 2 Duration: 90 Days Unchanged bumetanide (bumetanide 1 mg oral tablet) 1 tab(s) by mouth Two (2) times a day Unchanged collagenase topical (Santyl) Topical Once a day Unchanged DME (UBmatrixStyle Anai 2 Agate) See Instructions Use reader to scan sensor daily for blood sugar checks. Scan at least once every 8 hours Unchanged DME (FreeStyle Agate 14 day sensor) See Instructions 1 month supply Unchanged docusate-senna (Senna Plus 50 mg-8.6 mg oral tablet) 2 tab(s) by mouth Daily at bedtime Unchanged empagliflozin (Jardiance 10 mg oral tablet) 1 tab(s) by mouth Once a day (in the morning) Unchanged fluticasone-salmeterol (fluticasone-salmeterol 250 mcg-50 mcg inhalation powder) 1 puff(s) by inhalation Two (2) times a day Unchanged gabapentin (gabapentin 300 mg oral capsule) 1 cap by mouth Three (3) times a day Unchanged insulin glargine (Lantus 100 units/ mL10 ml vial solution) 26 unit(s) Subcutaneous (INT) Once a day Unchanged melatonin (melatonin 3 mg oral tablet) 1 tab(s) by mouth Daily at bedtime as needed for Sleep Unchanged menthol-zinc oxide topical (Calmoseptine 0.44%-20.6% topical ointment) 1 application Topical Three (3) times a day as needed for jorden buttocks clean affected area before application Unchanged nystatin topical (nystatin 100,000 units/ g topical powder) 1 application Topical Three (3) times a day folds Unchanged polyethylene glycol 3350 (MiraLax oral powder for reconstitution) 17 gram(s) by mouth Two (2) times a day as needed for Constipation Unchanged potassium chloride (Potassium Chloride (Eqv-K-Tab) 20 mEq oral tablet, extended release) 1 tab(s) by mouth Two (2) times a day Unchanged sertraline (Zoloft 50 mg oral tablet) 1 tab(s) by mouth Once a day Unchanged tamsulosin (tamsulosin 0.4 mg oral capsule) 1CAP by mouth Once a day Unchanged tirzepatide (Mounjaro 5 mg/ 0.5 mL subcutaneous solution) 5 Milligram Subcutaneous Every week Please take this list to your next doctor s visit. Bring all medications you take, including over the counter medications, herbals and other supplements with you to your doctor s visit. Patients and families are reminded to discard old lists and to update any records with all medication providers or retail pharmacies. Additional Information VACCINATE! IT SAVES LIVES! Members of the community who have not yet received the COVID-19 vaccine and would like to receive it can visit one of [facility] vaccine clinics. There are many vaccine clinic locations within the [facility]. For locations and available times, please visit www.gettheshot.coronavirus.[place].gov/. It is important to note that some COVID mobile vaccine clinics are held outdoors and may be canceled in rainy or stormy conditions. To learn more about pediatric vaccinations (ages 5-11), we invite you to visit the [employer] [facility] webpage. [email or web address].org/[email or web address]-Csnli-Jetjvtedilz-Kmypjomyts-Optwa-Eba stions.htmlTo learn more about the COVID-19 vaccine, we invite you to visit the CDC website for a list of frequently asked questions. https://www.cdc.gov/coronavirus/2019-ncov/vaccines/faq.html [facility] Patient Portal Access Instructions: Stay connected with your healthcare team and access your personal medical information anytime with the [facility] [facility] Patient Portal. If you would like a full copy of your medical records please contact the [facility] Medical Records Department Wednesday through Wednesday between 8a.m. and 4:30p.m. Please follow the directions below to access the portal: 1.Access the email account you provided upon registration to the [facility].2.Look for an invitation email from [facility].3.Open the email and access the invitation link: Accept Invitation to [facility]4.Fill in the required breen to create your account. Sign into [email or web address] with your username and password that you created in the above steps to stay up to date. You can then view a summary of results, a summary of your visits, and the ability to download your summaries to your computer or send the information securely to a physician. Remember that your healthcare information is confidential, so carefully consider who you will allow to register on the [employer] Patient Portal for access to your information. You can also access the [facility] Patient Portal on the [email or web address] priscilla. Simply click on Health Records under [employer] and then click on the [place] logo. HOW TO SAFELY DISPOSE OF PRESCRIPTION MEDICATIONS Please use one of the following methods to safely dispose of your unused medications. 1.Use a drug disposal kit: the drug disposal pouch allows you to safely discard your old and unuseddrugs. Ask your nurse to give you one when you are discharged.2.Visit a local take-back location: Many local pharmacies and police departments have programs that collect old and unwanted prescriptiondrugs. Call your local pharmacy or go to http://Wikidot.Rebit/3G5Xo6f to find one close to you.3.Make use of household items: Use cat litter or old coffee grounds to dispose medications if other options arenot available. Mix your drugs with these household products, seal them in an airtight container andthrow it into the garbage. Call [facility]: [phone] to be sure your drugs can be disposed of in this way. Some medicines may require a different approach.4.Never flush your medications down the toilet. IF YOU HAVE BEEN PRESCRIBED AN OPIOIDS FOR PAIN If you have been prescribed an opioid (such as hydrocodone, oxycodone or morphine), it is critical to understand the possible side effects and risks of opioid pain medications. Even when taken as directed, opioids can have several side effects including: Tolerance, meaning you might need to take more of a medication for the same pain relief. Nausea, vomiting and/or constipation. Sleepiness, dizziness, dry mouth, confusion, depression or itching. Physical dependence, meaning you have withdrawal symptoms when a medication is stopped ? this can develop within a few days. KNOW YOUR RESPONSIBILITIES It is important to know exactly how much and how often to take the opioid pain medications you are prescribed. Never take opioids in higher amounts or more often than prescribed. Do not combine opioids with alcohol or other drugs that cause drowsiness, such as benzodiazepines, also known as benzos,including diazepam and alprazolam, muscle relaxants or sleep aids. Never sell or share prescriptionopioids. This is illegal. Store opioids in a secure place and out of reach of others (including children, family, friends and visitors). The last page(s) of this document has been signed and retained as a CHART COPY Signatures Patient Education Materials Medication Leaflets My discharge plan and instructions have been reviewed and explained to me and I,JADON ALVAREZ understand my current condition and have read and understand these discharge instructions. I have received a written copy of the plan/instructions. If I have questions, I am aware that I should contact my doctor. 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 Signature: Date/Time: Relationship to Patient: Witness Name/Signature: [id number]* Exam Date Time Procedure Performing Provider Status 01/10/25 10:36 PM EKG (ED) - CV RAGHAV TOLBERT DO; Au (Verified) ECG Final Report SINUS RHYTHM NONSPECIFIC INTRAVENTRICULAR CONDUCTION DELAY Electronic Signature: RAGHAV TOLBERT DO 01/10/2025 23:00:21 [id number] Hospital Discharge instructionsAdditional Instructions Date of Discharge: 01/06/25[facility] Work Phone: [phone]) 527-518506-28-2025 Discharge summary Author Louie Howard [facility] Note Date/Time January 06, 2025 10:5 6am [facility] Medical Records Department [address] [place] [address] Transfer to [facility] MR#: [id number] Acct: [id number] Name: JADON ALVAREZ Rep #:[id number] : 1955 69 From: Louie Howard DO PCP: Kathleen Herzog MD Status:ADM IN Certification of patient admission REQUIRED AT TIME OF ADMISSION. I CERTIFY THAT POST-HOSPITAL ECF SERVICES ARE REQUIRED TO BE GIVEN ON AN IN-PATIENT BASIS BECAUSE OF THE ABOVE NAMED PATIENT'S NEED FOR GROUP HOME CARE ON A CONTINUING BASIS FOR THE CONDITION(S) FOR WHICH HE/SHE WAS RECEIVING IN-PATIENT HOSPITAL SERVICES PRIOR TO HIS/HER TRANSFER TO THE [facility]. 01/06/25 1056<Electronically signed by Louie Howard DO> Diet Diet Order/Speech Therapy: INPATIENT Hospital Diet / Speech Therapy Order(s) 01/05/25 16:30 Diet: Cardiac - Heart Healthy Food consistency:: Regular Liquid Consistency:: Regular/Thin Dietary Modifications:: Consistent Carbohydrate Routine Orders/Code Status Code Status: DNRCC-A (No intubation) DC O2, CPAP, BIPAP needs Home O2 Discharge instructions: No Problem/Diagnosis (1) Altered mental status: Status: Acute Code(s): R41.82 - Altered mental status, unspecified (2) Urinary tract infection: Status: Acute Code(s): N39.0 - Urinary tract infection, site not specified (3) Acute kidney injury: Status: Acute Code(s): N17.9 - Acute kidney failure, unspecified Allergies/Procedures Done in Hospital Allergies ibuprofen (From Nuprin) Allergy (Verified 01/05/25 08:19) Unknown Procedures: None Type of Care/Length of Stay Estimated LOS: More Than 30 Days Type of Care Needed: Intermediate Rehab Potential: Fair Prognosis: Fair Additional Orders/Day of Discharge H&P will serve as current which was dated: 01/05/25 Day of Discharge: 01/06/25 Dietary and Speech Recommendations Dietitian Recommendations/Changes: Continue CCD/Cardiac diet to manage medical condtions. Discharge Plan Admission Admit Date/Time: 01/05/25 14:41 Primary Reason for Your Visit: Acute kidney injury, cystitis Attending Provider: Louie Howard Primary Care Provider: Kathleen Herzog Consulting Providers: Allie Swann Discharge Orders/Prescriptions Prescriptions: New torsemide 10 mg tablet 10 mg PO DAILY Qty: 1 0RF cefdinir 300 mg capsule 300 mg PO BID Qty: 14 0RF Continued tamsulosin 0.4 mg capsule 0.4 mg PO QHS aspirin 81 MG tablet,delayed release (DR/EC) 81 mg PO DAILY atorvastatin 20 mg tablet 20 mg PO QHS amlodipine 5 mg tablet 5 mg PO DAILY Eliquis 5 mg tablet 5 mg PO BID melatonin 3 mg tablet 6 mg PO QHS mecobalamin (vitamin B12) 500 mcg tablet,chewable 500 mcg PO DAILY lactulose 10 gram/15 mL solution 20 g PO DAILY magnesium hydroxide [Dulcolax (magnesium hydroxide)] 400 mg/5 mL suspension 30 ml PO DAILY PRN (Reason: constipation) acetaminophen 500 mg tablet 1,000 mg PO TID insulin glargine [Lantus Solostar U-100 Insulin] 100 unit/mL (3 mL) insulin pen 23 unit subcut QHS donepezil 5 mg tablet 5 mg PO QHS gabapentin 100 mg capsule 200 mg PO TID insulin lispro [Humalog KwikPen Insulin] 100 unit/mL insulin pen See Protocol subcut TID Protocol: 6. Sliding Scale Insulin Custom Condition: 151-200 Dose/Route: 2 UNITS Condition: 201-250 Dose/Route: 4 UNITS Condition: 251-300 Dose/Route: 6 UNITS Condition: 301-350 Dose/Route: 8 UNITS Condition: 351-400 Dose/Route: 10 UNITS Protocol Text: Custom Sliding Scale Rx Instructions: sliding scale lurasidone 40 mg tablet 40 mg PO QHS Rx Instructions: must administer with food (at least 350 calories) potassium chloride 10 mEq capsule, extended release 10 meq PO BID budesonide-formoterol [Symbicort] 160-4.5 mcg/actuation HFA aerosol inhaler 1 puff inhalation DAILY trazodone 100 mg tablet 100 mg PO QHS Discontinued torsemide 20 mg tablet 20 mg PO BID Referrals / Follow Up: Kathleen Herzog MD [Primary Care Provider] - Disposition Disposition (needs filled in before D/C Order can be placed): NonSkilled NH/Intermed Care 01/06/25 1056 <Electronically signed by Louie Howard DO> Cosigner Signature (if applicable): CC: Dr. Allie Swann MD; Kathleen Herzog MD ~ [facility] Work Phone: [phone]) 750-337106-28-2025 [facility]06-27-2025 Discharge summary Author Vivek Villatoro [facility] Note Date/Time January 05, 2025 4:20 pm [facility] Medical Records Department [address] [place] [address] Emergency Department Summary 01/05/25 MR#: [id number] Acct: [id number] Name: JADON ALVAREZ Rep #:[id number] : 1955 69 From: Vivek Otero PCP: Kathleen Herzog MD Status:ADM IN Location: MS3 [id number] HPI History of Present Illness Chief Complaint: Mental Health Informant: EMS and SNF Limited: dementia and uncooperative Onset/Context/Timing Onset: Yesterday Timing: Continuous Quality: Nonverbal Location: Generalized Worsened by: Nothing Relieved by: Nothing Narrative Narrative: Patient presents with possible mental status change. Patient is nonverbal. Patient refuses to answer questions. snf staff states that patient david had a fall yesterday. EMS reports that the patient has a history of bipolar disorder and has had similar symptoms in the past. Prior similar symptoms: Yes PFSH [facility] Medical History Major depressive disorder, single episode, unspecified Bipolar disorder, unspecified Other specified peripheral vascular diseases MRSA (methicillin resistant staph aureus) culture positive Lives in alf Wears dentures Depression Anxiety Walker as ambulation aid Ambulates with cane Headache Shortness of breath on exertion Cardiology follow-up encounter History of renal disease Insulin dependent diabetes mellitus Pressure ulcer Abscess Indwelling urethral catheter present Acute painful diabetic polyneuropathy Cancer Former smoker CPAP (continuous positive airway pressure) dependence On home oxygen therapy Pulmonary embolism COPD (chronic obstructive pulmonary disease) Myocardial infarct DVT (deep venous thrombosis) Anemia Ulcer with necrosis of muscle Lymphedema of left lower extremity Lymphedema of right lower extremity Edema of left lower leg Edema of right lower leg Left leg swelling Right leg swelling Chronic venous insufficiency Non-pressure ulcer of right lower extremity with necrosis of muscle BPH (benign prostatic hyperplasia) Atrial fibrillation Blood loss anemia Hypertension Hiatal hernia Diverticulosis Debility Morbid obesity with BMI of 40.0-44.9, adult Impaired mobility SOB (shortness of breath) Heart murmur Heart failure 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 2 diabetes mellitus Aortic valve disease Renal mass, left History of DVT (deep vein thrombosis) Valvular heart disease Atrial fibrillation/flutter Chronic acquired lymphedema Chronic anemia Venous insufficiency (chronic) (peripheral) Ulcer of left lower extremity with fat layer exposed Superficial thrombosis of left lower extremity Peripheral vascular disease of lower extremity with ulceration Sleep apnea Morbid obesity DM2 (diabetes mellitus, type 2) Benign essential HTN Home Medications ?Medication ?Instructions ?Recorded ?Last Taken ?Type aspirin 81 mg tablet,delayed 81 mg PO DAILY AFIB 03/17 Unknown History release amlodipine 5 mg tablet 5 mg PO DAILY AFIB 10/28/23 Unknown History apixaban 5 mg tablet (Eliquis) 5 mg PO BID AFIB Unknown History atorvastatin 20 mg tablet 20 mg PO QHS HYPERLIPIDEMIA 10/28/23 10/13/24 History melatonin 3 mg tablet 6 mg PO QHS INSOMNIA 4 Unknown History tamsulosin 0.4 mg capsule 0.4 mg PO QHS PROSTATIC HYPE RPLASIA 12/22/23 Unknown History insulin glargine 100 unit/mL (3 23 unit subcut QHS KOBI BETIC 06/01/24 Unknown History mL) subcutaneous pen (Lantus Solostar U-100 Insulin) donepezil 5 mg tablet 5 mg PO QHS MEMORY 08/16/24 Unknown History gabapentin 100 mg capsule 200 mg PO TID NEUROPATHY 12/03 Unknown History insulin lispro 100 unit/mL See Protocol subcut TID KOBI BETIC 08/16/24 Unknown History subcutaneous pen (Humalog KwikPen (U-100) Insulin) lurasidone 40 mg tablet 40 mg PO QHS MOOD 08/16/24 U nknown History potassium chloride 10 mEq 10 meq PO BID POTASSIUM 12/03 Unknown History capsule,extended release torsemide 20 mg tablet 20 mg PO BID HEART 08/16/24 Unknown History budesonide-formoterol HFA 160 1 puff inhalation DAILY COPD 09/16/24 Unknown History mcg-4.5 mcg/actuation aerosol inhaler (Symbicort) trazodone 100 mg tablet 100 mg PO QHS insomnia 09/16 Unknown History acetaminophen 500 mg tablet 1,000 mg PO TID PAIN 01/05 Unknown History lactulose 10 gram/15 mL oral 20 g PO DAILY 01/05/25 Un known History solution magnesium hydroxide 400 mg/5 mL 30 ml PO DAILY PRN con stipation 01/05/25 Unknown History oral suspension (Dulcolax (magnesium hydroxide)) mecobalamin (vitamin B12) 500 mcg 500 mcg PO DAILY Unknown History chewable tablet Allergy/AdvReac Type Severity Reaction Status Date / Time ibuprofen (From Nuprin) Allergy Unknown Verified 01/05/25 08:19 Family History Mother Diabetes Father Cirrhosis of liver Alcoholism Surgical History History of incision and drainage History of embolic filter insertion History of right inguinal hernia repair H/O colectomy History of repair of inguinal hernia History of bladder surgery History of tonsillectomy and adenoidectomy History of right inguinal hernia repair S/P AVR (aortic valve replacement) Social History housing: alf Smoking Status: Former smoker how long ago did patient quit smoking: Quit ~ 20 yrs prior, smoked age 15 untilquit ~ 2 ppd. alcohol intake: never substance use type: does not use ROS ROS ED Review of Systems ROS Unobtainable: due to mental condition EXAM Physical Exam Const Vital Signs: 01/05/25 08:18 01/05/25 08:19 01/05/25 08:28 Temperature 97.4 F L Temperature Source Temporal Pulse Rate Respiratory Rate 16 16 Respiratory Effort Normal Non-Labored Blood Pressure Blood Pressure Mean Pulse Ox Oxygen Delivery Method 01/05/25 11:12 01/05/25 13:00 Temperature 98.6 F Temperature Source Oral Pulse Rate 66 49 L Respiratory Rate 18 Respiratory Effort Blood Pressure 144/92 H 136/66 H Blood Pressure Mean 109 89 Pulse Ox 98 Oxygen Delivery Method Room Air Positive well nourished and well developed General Appearance ED: well developed and NAD HEENT Reports moist mucous membranes Neck supple and no JVD Resp normal respiratory effort and clear to auscultation bilaterally Cardio regular rate GI non-tender and non-distended Palpation: soft Neuro Neuro Narrative: Patient is awake. Patient does not interact with me when I interview him in theroom. Patient continues to stare straight ahead. Patient does not respond to verbal stimuli. Patient does not follow commands. Psych mental status grossly normal MDM MDM MDM Narrative Medical decision making narrative: Differential diagnosis includes pneumonia, sepsis, cardiac dysrhythmia, cardiac ischemia, stroke, intracranial bleeding, electrolyte abnormality, hypoglycemia, and bipolar disorder. EKG will be obtained to assess for cardiac dysrhythmia and cardiac ischemia. Chest x-ray will be obtained to assess for pneumonia and bronchitis. CBC will be obtained to assess for leukocytosis and anemia. Basic metabolic profile will be obtained to assess for electrolyte abnormality, hypoglycemia, and renal function. Urinalysis will be obtained to assess for urinary tract infection and hematuria. CT scan of the brain will be obtained toassess for intracranial bleeding and stroke. History & Record Review Additional record(s) reviewed:: Prior labs Lab Data Attestation: I reviewed the patient's lab results. Lab results narrative: CBC was reviewed. There is a mild anemia with a hemoglobin of 12.4 and hematocrit of 39.3. Platelets were normal. Basic metabolic profile was reviewed. BUN was 30 and creatinine was 1.5. These were increased from previous results. Urinalysis was reviewed. Leukocyte Estrace was 500. There are 5-10 white blood cells and 2+ bacteria. There are positive nitrites. Labs: Laboratory Results - last 24 hr 01/05/25 01/05/25 10:47 11:15 WBC 4.7 RBC 4.65 Hgb 12.4 L Hct 39.3 L MCV 84.5 MCH 26.7 L MCHC 31.6 L RDW Std Deviation 47.2 H RDW Coeff of Carlito 15.4 H Plt Count 177 MPV 11.7 Immature Gran % (Auto) 0.000 Neut % (Auto) 54.3 Lymph % (Auto) 23.9 [place] % (Auto) 16.1 H Eos % (Auto) 5.1 H Baso % (Auto) 0.6 Absolute Neuts (auto) 2.6 Absolute Lymphs (auto) 1.13 Nucleated RBC % 0 Sodium 139 Potassium 4.4 Chloride 102 Carbon Dioxide 25.0 Anion Gap 12 BUN 30 H Creatinine 1.50 H Est GFR (MDRD) Non-Af 50 L BUN/Creatinine Ratio 19.9 Glucose 104 H Calcium 9.7 Urine Color Yellow Urine Clarity Sl. Cloudy Urine pH 8.0 Ur Specific Crouse 1.010 Urine Protein 100 H Urine Glucose (UA) Normal Urine Ketones Negative Urine Occult Blood 150 H Urine Nitrite Positive H Urine Bilirubin Negative Urine Urobilinogen Normal Ur Leukocyte Esterase 500 H Urine RBC 5-10 SEEN Urine WBC 5-10 SEEN Ur Squamous Epith Cells 0 SEEN Triple Phos Crystals 1+ Urine Bacteria 2+ Urine Mucus 0 SEEN Radiography Chest X-Ray - ED: 1 View, Read by ED Physician, Read by Radiologist and No AcuteDisease Diagnostic Testing: Clinical Impression(s) from Imaging Studies Brain CT 01/05/25 08:51 IMPRESSION: CHRONIC CHANGES. NO ACUTE FINDINGS. Reading Location: [facility] Chest X-Ray 01/05/25 12:30 IMPRESSION: No acute abnormality is seen. Reading Location: [facility] Portable 1 view chest x-ray was obtained. On my independent interpretation, lung breen are clear. There is normal cardiac silhouette. Bony thorax is normal. There is no acute process noted. Radiologist also interpreted the x-ray and agrees. CT scan of the brain was obtained. There is no acute intracranial abnormality. This was interpreted by the radiologist and was also independently reviewed by myself. EKG Initial EKG: Attestation: I personally reviewed and interpreted this EKG as follows: Interpretation: Sinus Bradycardia (52) and Non-Specific ST Changes Comments: EKG was obtained. On my independent interpretation, shows sinusbradycardia with a rate of 52. [place] interval was borderline at 200 ms. QRS interval was slightly prolonged at 122 ms. QTc interval was normal at 460 ms. [place] was normal. There are nonspecific ST-T wave changes noted. Prior EKG tracings: available for review Prior: Unchanged (10/10/2024) Treatment and Re-Evaluation :: Patient was getting agitated. Patient was threatening nursing staff. Because of this, patient was given a dose of Ativan. Patient was still agitated and threatening. Patient was given a dose of Haldol. Patient was more calm and cooperative after this. Patient was given IV fluids and Rocephin. Urine culture was ordered. Case was discussed with the hospitalist for admission. She will admit the patient to her service. Discharge Plan Triage Chief Complaint: Mental Health Other Complaint: Fall ED Provider: Vivek Villatoro Dx/Rx/DC Orders Clinical Impression: Urinary tract infection, Acute kidney injury, Altered mental status Prescriptions: No Action tamsulosin 0.4 mg capsule 0.4 mg PO QHS aspirin 81 MG tablet,delayed release (DR/EC) 81 mg PO DAILY atorvastatin 20 mg tablet 20 mg PO QHS amlodipine 5 mg tablet 5 mg PO DAILY Eliquis 5 mg tablet 5 mg PO BID melatonin 3 mg tablet 6 mg PO QHS mecobalamin (vitamin B12) 500 mcg tablet,chewable 500 mcg PO DAILY lactulose 10 gram/15 mL solution 20 g PO DAILY magnesium hydroxide [Dulcolax (magnesium hydroxide)] 400 mg/5 mL suspension 30 ml PO DAILY PRN (Reason: constipation) acetaminophen 500 mg tablet 1,000 mg PO TID insulin glargine [Lantus Solostar U-100 Insulin] 100 unit/mL (3 mL) insulin pen 23 unit subcut QHS donepezil 5 mg tablet 5 mg PO QHS gabapentin 100 mg capsule 200 mg PO TID insulin lispro [Humalog KwikPen Insulin] 100 unit/mL insulin pen See Protocol subcut TID Protocol: 6. Sliding Scale Insulin Custom Condition: 151-200 Dose/Route: 2 UNITS Condition: 201-250 Dose/Route: 4 UNITS Condition: 251-300 Dose/Route: 6 UNITS Condition: 301-350 Dose/Route: 8 UNITS Condition: 351-400 Dose/Route: 10 UNITS Protocol Text: Custom Sliding Scale Rx Instructions: sliding scale lurasidone 40 mg tablet 40 mg PO QHS Rx Instructions: must administer with food (at least 350 calories) potassium chloride 10 mEq capsule, extended release 10 meq PO BID torsemide 20 mg tablet 20 mg PO BID budesonide-formoterol [Symbicort] 160-4.5 mcg/actuation HFA aerosol inhaler 1 puff inhalation DAILY trazodone 100 mg tablet 100 mg PO QHS Primary Care Provider: Kathleen Herzog Referrals: Kathleen Herzog MD [Primary Care Provider] - Print Language: Georgian Disposition Disposition: Acute Care Hospital [facility] What to do if you have Problems For any increased pain, shortness of breath, bleeding, nausea or vomiting, chestpain, or any unexpected problems, contact your Primary Care Provider. Call [facility] ([phone]) or report to the closest Emergency Room. Call 911 if necessary. 01/05/25 1620 <Electronically signed by Vivek Villatoro DO> Cosigner Signature (if applicable): CC: Kathleen Herzog MD ~ Signed [facility] Work Phone: 1(785) 421-622406-27-2025 History and physical note Author Allie Swann [facility] Note Date/Time January 05, 2025 2:53 pm [facility] Medical Records Department [address] [place] [address] H&P Exam - Hospitalist 01/05/25 1441 MR#: [id number] Acct: [id number] Name: JADON ALVAREZ Rep #:[id number] : 1955 69 From: Allie Swann MD PCP: Kathleen Herzog MD Status:REG ER Location: ED HPI - General General Date of Admission: 01/05/25 Date of Service: 01/05/25 Chief Complaint: AMS HPI Narrative JADON ALVAREZ, is a 69-year-old male with history of bipolar disorder, COPD, PAWEL, diabetes, VTE, A-fib, BPH presented [facility] ED 01/05/2025with reported possible mental status change. Reportedly patient refusing answerquestions and there was question of possible fall the day of before presentation. SNF staff thought he was more altered so called EMS. EMS reported that patient has history of bipolar disorder and has had similar symptoms to this in the past. In the ED patient afebrile, heart rate 66 with a blood pressure 144/92, respiratory rate 18 and pulse ox 98% on room air. CBC with normal white blood cell count, hemoglobin 12.4, BUN of 30 and creatinine 1.5 which does seem to be up from baseline of around 0.9, glucose 104. UA suspicious for infection. Chest x-ray and brain CT negative for acute process. Given patient's agitation and altered mental status in the setting of UTI and VALENTIN hospitalist contacted for admission, reportedly social work evaluated patient in ED there was concern that he could need psychiatric placement once these improved but there were further mental health concerns. Patient evaluatedat bedside, very slow to respond and only responds to some questions but reportsoverall feeling tired and unwell, reports he has not had a bowel movement in 4 to 5 days and is making frustrated, has some abdominal discomfort associated with this but he cannot describe this further, possibly some burning on urination. Denies any chest pain or shortness of breath. Said he thinks he might of had a fever last night and might of had some coughing but was unable tofurther characterize that. PFSH Medical History Major depressive disorder, single episode, unspecified Bipolar disorder, unspecified Other specified peripheral vascular diseases MRSA (methicillin resistant staph aureus) culture positive Lives in alf Wears dentures Depression Anxiety Walker as ambulation aid Ambulates with cane Headache Shortness of breath on exertion Cardiology follow-up encounter History of renal disease Insulin dependent diabetes mellitus Pressure ulcer Abscess Indwelling urethral catheter present Acute painful diabetic polyneuropathy Cancer Former smoker CPAP (continuous positive airway pressure) dependence On home oxygen therapy Pulmonary embolism COPD (chronic obstructive pulmonary disease) Myocardial infarct DVT (deep venous thrombosis) Anemia Ulcer with necrosis of muscle Lymphedema of left lower extremity Lymphedema of right lower extremity Edema of left lower leg Edema of right lower leg Left leg swelling Right leg swelling Chronic venous insufficiency Non-pressure ulcer of right lower extremity with necrosis of muscle BPH (benign prostatic hyperplasia) Atrial fibrillation Blood loss anemia Hypertension Hiatal hernia Diverticulosis Debility Morbid obesity with BMI of 40.0-44.9, adult Impaired mobility SOB (shortness of breath) Heart murmur Heart failure 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 2 diabetes mellitus Aortic valve disease Renal mass, left History of DVT (deep vein thrombosis) Valvular heart disease Atrial fibrillation/flutter Chronic acquired lymphedema Chronic anemia Venous insufficiency (chronic) (peripheral) Ulcer of left lower extremity with fat layer exposed Superficial thrombosis of left lower extremity Peripheral vascular disease of lower extremity with ulceration Sleep apnea Morbid obesity DM2 (diabetes mellitus, type 2) Benign essential HTN Home Medications ?Medication ?Instructions ?Recorded ?Last Taken ?Type aspirin 81 mg tablet,delayed 81 mg PO DAILY AFIB 03/17 Unknown History release amlodipine 5 mg tablet 5 mg PO DAILY AFIB 10/28/23 Unknown History apixaban 5 mg tablet (Eliquis) 5 mg PO BID AFIB Unknown History atorvastatin 20 mg tablet 20 mg PO QHS HYPERLIPIDEMIA 10/28/23 10/13/24 History melatonin 3 mg tablet 6 mg PO QHS INSOMNIA 4 Unknown History tamsulosin 0.4 mg capsule 0.4 mg PO QHS PROSTATIC HYPE RPLASIA 12/22/23 Unknown History insulin glargine 100 unit/mL (3 23 unit subcut QHS KOBI BETIC 06/01/24 Unknown History mL) subcutaneous pen (Lantus Solostar U-100 Insulin) donepezil 5 mg tablet 5 mg PO QHS MEMORY 08/16/24 Unknown History gabapentin 100 mg capsule 200 mg PO TID NEUROPATHY 12/03 Unknown History insulin lispro 100 unit/mL See Protocol subcut TID KOBI BETIC 08/16/24 Unknown History subcutaneous pen (Humalog KwikPen (U-100) Insulin) lurasidone 40 mg tablet 40 mg PO QHS MOOD 08/16/24 U nknown History potassium chloride 10 mEq 10 meq PO BID POTASSIUM 12/03 Unknown History capsule,extended release torsemide 20 mg tablet 20 mg PO BID HEART 08/16/24 Unknown History budesonide-formoterol HFA 160 1 puff inhalation DAILY COPD 09/16/24 Unknown History mcg-4.5 mcg/actuation aerosol inhaler (Symbicort) trazodone 100 mg tablet 100 mg PO QHS insomnia 09/16 Unknown History acetaminophen 500 mg tablet 1,000 mg PO TID PAIN 01/05 Unknown History lactulose 10 gram/15 mL oral 20 g PO DAILY 01/05/25 Un known History solution magnesium hydroxide 400 mg/5 mL 30 ml PO DAILY PRN con stipation 01/05/25 Unknown History oral suspension (Dulcolax (magnesium hydroxide)) mecobalamin (vitamin B12) 500 mcg 500 mcg PO DAILY Unknown History chewable tablet Allergy/AdvReac Type Severity Reaction Status Date / Time ibuprofen (From Nuprin) Allergy Unknown Verified 01/05/25 08:19 Family History Mother Diabetes Father Cirrhosis of liver Alcoholism Surgical History History of incision and drainage History of embolic filter insertion History of right inguinal hernia repair H/O colectomy History of repair of inguinal hernia History of bladder surgery History of tonsillectomy and adenoidectomy History of right inguinal hernia repair S/P AVR (aortic valve replacement) Social History housing: alf Smoking Status: Former smoker how long ago did patient quit smoking: Quit ~ 20 yrs prior, smoked age 15 untilquit ~ 2 ppd. alcohol intake: never substance use type: does not use ROS ROS Narrative Unable to fully obtain ROS due to mental status and cooperation however patient thinks maybe had a fever last night and had a little bit of a cough but no coughtoday, no shortness of breath or chest pain, some abdominal discomfort with no bowel movement for several days, maybe some burning on urination but denied any other acute complaints aside from some pain on his butt which is not new Vital Signs Vital Signs Vital Signs: 01/05/25 08:18 01/05/25 08:19 01/05/25 08:28 Temperature 97.4 F L Temperature Source Temporal Pulse Rate Respiratory Rate 16 16 Respiratory Effort Normal Non-Labored Blood Pressure Blood Pressure Mean Pulse Ox Oxygen Delivery Method 01/05/25 11:12 01/05/25 13:00 Temperature 98.6 F Temperature Source Oral Pulse Rate 66 49 L Respiratory Rate 18 Respiratory Effort Blood Pressure 144/92 H 136/66 H Blood Pressure Mean 109 89 Pulse Ox 98 Oxygen Delivery Method Room Air Physical Exam Narrative General: Patient awake, intermittently answers questions but has difficulty expanding upon any answers he gives HEENT: Normocephalic Eyes: Anicteric, normal conjunctiva, extraocular movements grossly intact Neck: Supple Respiratory: Clear to auscultation bilaterally, normal respiratory effort Cardiovascular: Irregular but normal rate GI: Soft, nontender, nondistended, no rebound, guarding, rigidity Extremities: No pitting edema Musculoskeletal: Moving all extremities Neuro: No overt focal neurological deficits Skin: N chronic changes in lower extremities Psych: Seems to attempt to be cooperative but very slow to respond and somewhat suspicious Results Lab / Micro Data 01/05/25 11:15 01/05/25 11:15 Labs: Laboratory Results - last 24 hr 01/05/25 10:47: Urine Color Yellow, Urine Clarity Sl. Cloudy, Urine pH 8.0, Ur Specific Crouse 1.010, Urine Protein 100 H, Urine Glucose (UA) Normal, Urine Ketones Negative, Urine Occult Blood 150 H, Urine Nitrite Positive H, Urine Bilirubin Negative, Urine Urobilinogen Normal, Ur Leukocyte Esterase 500 H, Urine RBC 5-10 SEEN, Urine WBC 5-10 SEEN, Ur Squamous Epith Cells 0 SEEN, TriplePhos Crystals 1+, Urine Bacteria 2+, Urine Mucus 0 SEEN 01/05/25 11:15: WBC 4.7, RBC 4.65, Hgb 12.4 L, Hct 39.3 L, MCV 84.5, MCH 26.7 L,MCHC 31.6 L, RDW Std Deviation 47.2 H, RDW Coeff of Carlito 15.4 H, Plt Count 177, MPV 11.7, Immature Gran % (Auto) 0.000, Neut % (Auto) 54.3, Lymph % (Auto) 23.9,Stoddard % (Auto) 16.1 H, Eos % (Auto) 5.1 H, Baso % (Auto) 0.6, Absolute Neuts (auto) 2.6, Absolute Lymphs (auto) 1.13, Nucleated RBC % 0, Sodium 139, Potassium 4.4, Chloride 102, Carbon Dioxide 25.0, Anion Gap 12, BUN 30 H, Creatinine 1.50 H, Est GFR (MDRD) Non-Af 50 L, BUN/Creatinine Ratio 19.9, Rpqfisk479 H, Calcium 9.7 Imaging Radiology Impression Brain CT 01/05/25 08:51 IMPRESSION: CHRONIC CHANGES. NO ACUTE FINDINGS. Reading Location: [id number] Chest X-Ray 01/05/25 12:30 IMPRESSION: No acute abnormality is seen. Reading Location: [id number] Assessment & Plan Assessment/Plan (1) Altered mental status: (2) Urinary tract infection: (3) Acute kidney injury: PLAN: Plan # Reported mental status change suspect secondary to UTI associated with chronicindwelling Martines catheter -UA suggestive of UTI -Continue empiric antibiotics while awaiting culture and sensitivity data -Supportive care - Patient did report some chronic suicidal thoughts with no plan, social work evaluated patient in ED and thought he may need psychiatric placement if there are still any further concerns once UTI is treated and VALENTIN improves #Type 2 diabetes mellitus -Glucose checks and sliding scale insulin -Will decrease long-acting insulin slightly given glucose only 104 in the ED, want to avoid hypoglycemia, can uptitrate as glucose tolerates # VALENTIN -All of patient's cell lines are out and has an elevated BUN, suspect patient might be slightly volume depleted -IV fluids -Avoid nephrotoxic agents -Repeat in the a.m. - Monitor I's and O's - Patient has chronic Martines catheter - Will hold torsemide for now and monitor volume status # Constipation - Per patient he is constipated, will schedule bowel regimen - Can consider suppository or enema if bowel regimen and potential escalation ofthat regimen did not yield bowel movement - Abdomen soft without any alarm symptoms and patient with no nausea or vomitingat this time # History of bipolar disorder -Continue patient's home medications #hx dvt/pe/afib/bioprosthetic aortic valve - Continue home anticoagulation - Presently in sinus rhythm but with marked sinus arrhythmia, QTc 416 #Hypertension - Blood pressure 136/66, continue home antihypertensives #Hx COPD -Continue home inhalers -Incentive spirometer #PAWEL - Patient reports he does not wear CPAP and has not for a while #Chronic BPH with obstruction -Continue home medications #Dementia -Supportive care -Continue home medications #DVT ppx: Patient on chronic anticoagulation Allie Swann MD Charges/Coding Visit Charges Inpatient E&M: 96256 Init Hosp L2 01/05/25 1458 <Electronically signed by Allie Swann MD> Cosigner Signature (if applicable): CC: Dr. Allie Swann MD; Kathleen Herzog MD~ Signed [facility] Work Phone: [phone]) 875-127206-27-2025 Radiology Diagnostic study [facility]06-27-2025 Radiology Diagnostic study [facility]06-25-2025 Progress note Author Aaron Shannon [facility] Note Date/Time January 03, 2025 10:4 5am [facility] [address] [place] [id number] Progress Note - Wound Care 01/03/25 1042 MR#: [id number] Acct: [id number] Name: JADON ALVAREZ Rep #:[id number] : 1955 69 From: Aaron Iniguez PM PCP: Kathleen Herzog MD Status:REG RCR Location: History of Present Illness Date of Service: 01/03/25 Chief Complaint: Right buttock ulceration History of Wound: Patient is 69-year-old male chronic ulceration to the lateral right leg stable with no sign of infection. Progress of Wound: Improving right leg ulceration Subjective Subjective Patient is a 69-year-old diabetic male presenting to wound care center today forfollow-up evaluation of right lateral leg full-thickness wound. Patient has been getting dressing changes at the [facility] facility as ordered. He iswearing compression at the facility but states they are too tight and he is not wearing them today. His blood sugar has been well-controlled. He is not as ambulatory as he was previously and only uses his legs to transfer when needed. Otherwise he is resting and elevating his bilateral lower extremity. He is a bit frustrated with the nursing facility but overall is doing well especially from a wound standpoint. Denies trauma. Denies constitutional symptoms. No other pedal complaints at this time. Objective Data Objective Data Vital Signs: Vital Signs Temp Pulse Resp BP 98.7 F 68 16 119/66 01/03/25 09:51 01/03/25 09:51 01/03/25 09:51 01/03/25 09:51 Weight: 157.85 kg Body Mass Index (BMI) 44.6 Physical Exam Narrative Vascular: DP and PT pulses are palpable to the right lower extremity. Nonpitting edema appreciated to the right lower extremity. Skin temperature gradient is warm to warm from proximal ankles to distal digit. No focal increase appreciated. Evidence of varicosities appreciated left lower extremity. Neurological: Light touch intact. Patient response to painful stimuli. Protective sensation is diminished. Dermatological: Full-thickness ulceration to the lateral aspect of the right legmeasuring 5.2 x 1.8 x 0.1 cm wound base is granular. No malodor or probe to bone. No sign of infection. Excisional debridement of the right leg lateral aspect full-thickness ulcerationdown to and including subcutaneous tissue with a number 5 mm dermal curette without incident. Predebridement measurement was 5.0 x 1.6 x 0.1 cm. Postdebridement measurement was 5.2 x 1.8 x 0.1 cm. Musculoskeletal: No pain to palpation to full-thickness ulceration. No pain with calf compression. Debridement Note Debridement Note Debridement Free Text: Excisional debridement of the right leg lateral aspect full-thickness ulceration down to and including subcutaneous tissue with a number 5 mm dermal curette without incident. Predebridement measurement was 5.0x 1.6 x 0.1 cm. Postdebridement measurement was 5.2 x 1.8 x 0.1 cm. Post-Debridement Measurements and Additional Note: Post-Debridement Measurements/Treatment COYD - Nurse 1 - General Ulcer Assessment Start: 01/03/25 09:51 Freq: Status: Active Protocol: GALE Activity Type Activity Date Activity User E-sign Co-sign Detail Recorded Client Recorded Date Recorded By Document 01/03/25 09:51 ML [id number] 01/03/25 09:58 ML 01/03/25 09:51 WC - Today's Visit Information Type of service Follow-up Visit (Physician/GAS PROVER ) Arrival Mode Wheelchair Transfer Assistance Manual Patient Identification Verified (Name & Yes ) Patient Requires Transmission-Based No Precautions Height and Weight Body Mass Index (BMI) 44.6 BMI Classification Obese Vital Signs Temperature (97.8 F-99.1 F) 98.7 F Temperature Source Temporal Pulse Rate (60-100) 68 Pulse Location Monitor Respiratory Rate (12-18) 16 Respiratory rate source Observation Blood Pressure (90/60-120/80) 119/66 Blood Pressure Mean (mm Hg) 83 Source Monitor Position Sitting Blood Pressure Location Right Arm History Since Last Visit- (Skip if this is Patient's initial visit) Have you changed medications since your No last visit? Any new allergies or adverse reactions No Had a fall/change in ADL's that may No increase risk of falls Signs or symptoms of abuse and/or No neglect since last visit Have you been in the hospital since your No last visit? Has dressing in place as prescribed Yes Has compression in place as prescribed N/A Has offloadiing in place as prescribed N/A Experienced any changes in pain level or No management Pain Scale: 0-10 Numeric Is Patient Pain Free? Yes CODY - Nurse 1 - General Ulcer Measurement Start: 01/03/25 09:51 Freq: Status: Active Protocol: Activity Type Activity Date Activity User E-sign Co-sign Detail Recorded Client Recorded Date Recorded By Document 01/03/25 09:51 ML [id number] 01/03/25 09:58 ML 01/03/25 09:51 Wound Center Nurse 1 #5 RT LAT LE POST-OP -Combined with other wound No -Current Size (cm) - Length 7 -Current Size (cm) - Width 2.8 -Current Size (cm) - Depth 0.1 -Total Square Cm 19.6 -Photo Taken Yes -Tunneling No -Undermining/Tunneling No -Circular Undermining No -Exudate Amt Large -Exudate Type Serosanguineous -Wound Margin Distinct, Outline Attached -Granulation Amt Large (67-100%) -Granulation Quality [place] -Slough/Fibrin Yes -Necrosis Amt Small (1-33%) -Necrotic Tissue Type Adherent Slough -Structure Exposed N/A -Texture (Mariza-wound Skin Appearance) Scarring -Moisture (Mariza-wound Skin Appearance) Assessed -Color (Mariza-wound Skin Appearance) Assessed -Temperature (Mariza-wound Skin No Abnormality Appearance) (Pt Warm) -Tenderness on Palpation (Mariza-wound No Skin Appearance) -Ulcer Cleansing Wound Cleanser -Foul Odor after Cleansing No -Anesthetic Used 5% Lidocaine Gel WC - Nurse 2 - General Ulcer CM Notes Start: 01/03/25 09:51 Freq: Status: Active Protocol: Activity Type Activity Date Activity User E-sign Co-sign Detail Recorded Client Recorded Date Recorded By Document 01/03/25 10:03 DS [id number] 01/03/25 10:06 DS 01/03/25 10:03 Wound Center Nurse 2 -Time 10:04 -Correct Patient Yes -Correct Side, Site, Position Yes -Correct Procedure Yes -Procedure Performed Yes -Type of Procedure Debridement -Clinical Debridement Subcutaneous -Tissue Removed Subcutaneous -Post Debridement (cm) - Length 5.2 -Post Debridement (cm) - Width 1.8 -Post Debridement (cm) - Depth 0.1 -Total Square (Post) (cm) 9.36 -Area of Debridement (cm) - Length 5.2 -Area of Debridement (cm) - Width 1.8 -Total Square (Area) (cm) 9.36 -Tunneling No -Undermining/Tunneling No -Circular Undermining No -Wound/Ulcer Outcome Not Healed -Ulcer Cleansing Rinsed/ Irrigated with Saline -Foul Odor after Cleansing No -Bioengineered Tissue No -Bleeding Controlled with Pressure -Treatment Response Procedure Tolerated Well -Offloading No -Debridement - Subq, 1st 20sq cm Yes Pain Scale: 0-10 Numeric Is Patient Pain Free? Yes - Nurse 3 - General Ulcer D/C NN Start: 01/03/25 09:51 Freq: Status: Active Protocol: Activity Type Activity Date Activity User E-sign Co-sign Detail Recorded Client Recorded Date Recorded By Document 01/03/25 10:21 ML [id number] 01/03/25 10:23 ML 06/25/25 10:21 Wound Care Center Nurse 3 #5 RT LAT LE POST-OP -Ulcer Cleansing Rinsed/ Irrigated with Saline -Primary Dressing Applied Promogran Lalit Matter -Other Dressing BRITTANY -Primary Dressing Covered/Secured with Dry Gauze & Roll Gauze, Secured with Tape -Promogran Lalit Matter 1 Pain Scale: 0-10 Numeric Is Patient Pain Free? Yes Assessment/Plan Assessment/Plan (1) Non-pressure chronic ulcer of 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: CODE(S): L97.212 - Non-pressure chronic ulcer of 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 PLAN: Patient was examined and evaluated. All findings were discussed with the patient. All questions were answered to the patient's satisfaction. Excisional debridement of the right leg lateral aspect full-thickness ulcerationdown to and including subcutaneous tissue with a number 5 mm dermal curette without incident. Predebridement measurement was 5.0 x 1.6 x 0.1 cm. Postdebridement measurement was 5.2 x 1.8 x 0.1 cm. The right lower extremities were cleaned and patted dry. Moist present was applied followed by dry sterile dressing and Tubigrip. Encouraged ambulation. Educated the patient continue rest and elevate his bilateral lower extremity. Educated patient on strict blood sugar control. Follow-up at the wound care center with Dr. Shannon in 1 week. 01/03/25 1045 <Electronically signed by Aaron Shannon DPM> Cosigner Signature (if applicable): CC: ~ Signed [facility] Work Phone: 1(987) 645-105905-21-2025 Progress note Author Aaron Shannon [facility] Note Date/Time November 29, 2024 12:45 pm [facility] [address] [place] [address] Progress Note - Wound Care 11/29/24 1242 MR#: [id number] Acct: [id number] Name: AJDON ALVAREZ Rep #:[id number] : 1955 69 From: Aaron Iniguez PM PCP: Kathleen Herzog MD Status:REG RCR Location: History of Present Illness Date of Service: 11/29/24 Chief Complaint: Right buttock ulceration History of Wound: Patient is 69-year-old male chronic ulceration to the lateral right leg stable with no sign of infection. Progress of Wound: Stable full-thickness wound to the lateral right lower extremity stable no sign of infection. Subjective Subjective Patient is a 69-year-old diabetic male presenting with her send a follow-up evaluation of right lower extremity lateral wound. Patient has been getting dressing changes as prescribed and admits the wound is improving and doing well. His blood sugar has been well-controlled. He denies any trauma. Denies constitutional symptoms. No other pedal complaints at this time. Objective Data Objective Data Vital Signs: Vital Signs Temp Pulse Resp BP O2 Del Method 97.8 F 56 L 18 127/67 H Room Air 11/29/24 09:38 11/29/24 09:38 11/29/24 09:38 11/29/24 09:38 11/29/24 09:38 Oxygen Delivery Method Room Air Weight: 157.85 kg Body Mass Index (BMI) 44.6 Physical Exam Narrative Vascular: DP and PT pulses are palpable to the right lower extremity. Nonpitting edema appreciated to the right lower extremity. Skin temperature gradient is warm to warm from proximal ankles to distal digit. No focal increase appreciated. Evidence of varicosities appreciated left lower extremity. Neurological: Light touch intact. Patient response to painful stimuli. Protective sensation is diminished. Dermatological: Full-thickness ulceration to the lateral aspect of the right legmeasuring 7.2 x 2.4 x 0.1 cm. Wound base is granular. No malodor or probe to bone. No sign of infection. Excisional debridement of the right leg lateral aspect full-thickness ulcerationdown to and including subcutaneous tissue with a number 5 mm dermal curette without incident. Predebridement measurement was 7.0 x 2.1 x 0.1 cm. Postdebridement measurement was 7.2 x 2.4 x 0.1 cm. Musculoskeletal: Mild pain to palpation to full-thickness ulceration. No pain with calf compression. Debridement Note Debridement Note Debridement Free Text: Excisional debridement of the right leg lateral aspect full-thickness ulceration down to and including subcutaneous tissue with a number 5 mm dermal curette without incident. Predebridement measurement was 7.0x 2.1 x 0.1 cm. Postdebridement measurement was 7.2 x 2.4 x 0.1 cm. Post-Debridement Measurements and Additional Note: Post-Debridement Measurements/Treatment WC - Nurse 1 - General Ulcer Assessment Start: 11/29/24 09:38 Freq: Status: Active Protocol: GALE Activity Type Activity Date Activity User E-sign Co-sign Detail Recorded Client Recorded Date Recorded By Document 11/29/24 09:38 HANNAH [id number] 11/29/24 09:45 11/29/24 09:38 WC - Today's Visit Information Type of service Follow-up Visit (Physician/GAS PROVER ) Arrival Mode Ambulatory Patient Identification Verified (Name & Yes ) Height and Weight Body Mass Index (BMI) 44.6 BMI Classification Obese Vital Signs Temperature (97.8 F-99.1 F) 97.8 F Temperature Source Temporal Pulse Rate (60-100) 56 L Pulse Location Monitor Respiratory Rate (12-18) 18 Respiratory rate source Observation Oxygen Delivery Method Room Air Blood Pressure (90/60-120/80) 127/67 H Blood Pressure Mean (mm Hg) 87 Source Monitor Position Semi-Fowlers Blood Pressure Location Left Arm Pain Scale: 0-10 Numeric Is Patient Pain Free? Yes - Nurse 1 - General Ulcer Measurement Start: 11/29/24 09:38 Freq: Status: Active Protocol: Activity Type Activity Date Activity User E-sign Co-sign Detail Recorded Client Recorded Date Recorded By Document 11/29/24 09:38 HANNAH [id number] 11/29/24 09:45 11/29/24 09:38 Wound Center Nurse 1 #5 RT LAT LE POST-OP -Current Size (cm) - Length 8.4 -Current Size (cm) - Width 2.5 -Current Size (cm) - Depth 0.1 -Total Square Cm 21.00 -Epithelialization Large 67-100% -Exudate Amt Medium -Exudate Type Serosanguineous -Wound Margin Distinct, Outline Attached -Granulation Amt Large (67-100%) -Granulation Quality Red -Texture (Mariza-wound Skin Appearance) Assessed, Scarring -Moisture (Mariza-wound Skin Appearance) Assessed -Color (Mariza-wound Skin Appearance) Assessed -Temperature (Mariza-wound Skin No Abnormality Appearance) (Pt Warm) -Tenderness on Palpation (Mariza-wound No Skin Appearance) -Ulcer Cleansing Soap and Water -Foul Odor after Cleansing No -Anesthetic Used 4% Lidocaine Solution Right Calf (cm) 35.7 Right Ankle (cm) 24 WC - Nurse 2 - General Ulcer CM Notes Start: 11/29/24 09:38 Freq: Status: Active Protocol: Activity Type Activity Date Activity User E-sign Co-sign Detail Recorded Client Recorded Date Recorded By Document 11/29/24 10:03 [id number] 11/29/24 10:04 11/29/24 10:03 Wound Center Nurse 2 #5 RT LAT LE POST-OP -Post Debridement (cm) - Length 7.2 -Post Debridement (cm) - Width 2.4 -Post Debridement (cm) - Depth 0.1 -Total Square (Post) (cm) 17.28 -Area of Debridement (cm) - Length 7.2 -Area of Debridement (cm) - Width 2.4 -Total Square (Area) (cm) 17.28 -Tunneling No -Undermining/Tunneling No -Circular Undermining No -Wound/Ulcer Outcome Not Healed -Ulcer Cleansing Rinsed/ Irrigated with Saline -Foul Odor after Cleansing No -Bioengineered Tissue No -Bleeding Controlled with Pressure -Treatment Response Procedure Tolerated Well -Offloading No -Debridement - Subq, 1st 20sq cm Yes Pain Scale: 0-10 Numeric Is Patient Pain Free? Yes - Nurse 3 - General Ulcer D/C NN Start: 11/29/24 09:38 Freq: Status: Active Protocol: Activity Type Activity Date Activity User E-sign Co-sign Detail Recorded Client Recorded Date Recorded By Document 11/29/24 10:17 [id number] 11/29/24 10:18 11/29/24 10:17 Wound Care Center Nurse 3 #5 RT LAT LE POST-OP -Ulcer Cleansing Not Cleansed -Foul Odor after Cleansing No -Primary Dressing Applied Promogran Lalit Matter -Primary Dressing Covered/Secured with Dry Gauze & Roll Gauze, Secured with Tape -Promogran Lalit Matter 1 LLE -Tubular Bandage Double Layer -Size of Tubigrip Used Size E -Size E ($) 2 RLE -Lotion applied to leg before No compression wrap -Compression Wrap Brittany Wrap Pain Scale: 0-10 Numeric Is Patient Pain Free? Yes WC - Visit Discharge Discharge Condition Stable Ambulatory Status Ambulatory Transportation Private Auto Clinical Summary of Care Provided Yes Assessment/Plan Assessment/Plan (1) Non-pressure chronic ulcer of 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: CODE(S): L97.212 - Non-pressure chronic ulcer of 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 PLAN: Patient was examined and evaluated. All findings were discussed with the patient. All questions were answered to the patient's satisfaction. Excisional debridement of the right leg lateral aspect full-thickness ulcerationdown to and including subcutaneous tissue with a number 5 mm dermal curette without incident. Predebridement measurement was 7.0 x 2.1 x 0.1 cm. Postdebridement measurement was 7.2 x 2.4 x 0.1 cm. Right lower extremities werecleaned and pat dry. Moist Lalit was fitted to the size of the wound followed by dry sterile dressing and Brittany wrap was applied. Continue the same orders for dressing changes and washing of the full-thickness wound with showers was dispensed to the patient to get back to the nursing staff at [facility] facility. Follow-up at the wound care center with Dr. Shannon in 3 week. 11/29/24 1245 <Electronically signed by Aaron Shannon DPM> Cosigner Signature (if applicable): CC: ~ Signed [facility] Work Phone: 1(504) 695-465705-21-2025 Progress note [facility] [address] [place] [address] Progress Note - Wound Care 11/29/24 1242 MR#: [id number] Acct: [id number] Name: JADON ALVAREZ Rep #:[id number] : 1955 69 From: Aaron Iniguez PM PCP: Kathleen Herzog MD Status:REG RCR Location: History of Present Illness Date of Service: 11/29/24 Chief Complaint: Right buttock ulceration History of Wound: Patient is 69-year-old male chronic ulceration to the lateral right leg stable with no sign of infection. Progress of Wound: Stable full-thickness wound to the lateral right lower extremity stable no sign of infection. Subjective Subjective Patient is a 69-year-old diabetic male presenting with her send a follow-up evaluation of right lower extremity lateral wound. Patient has been getting dressing changes as prescribed and admits the wound is improving and doing well. His blood sugar has been well-controlled. He denies any trauma. Denies constitutional symptoms. No other pedal complaints at this time. Objective Data Objective Data Vital Signs: Vital Signs Temp Pulse Resp BP O2 Del Method 97.8 F 56 L 18 127/67 H Room Air 11/29/24 09:38 11/29/24 09:38 11/29/24 09:38 11/29/24 09:38 11/29/24 09:38 Oxygen Delivery Method Room Air Weight: 157.85 kg Body Mass Index (BMI) 44.6 Physical Exam Narrative Vascular: DP and PT pulses are palpable to the right lower extremity. Nonpitting edema appreciated to the right lower extremity. Skin temperature gradient is warm to warm from proximal ankles to distal digit. No focal increase appreciated. Evidence of varicosities appreciated left lower extremity. Neurological: Light touch intact. Patient response to painful stimuli. Protective sensation is diminished. Dermatological: Full-thickness ulceration to the lateral aspect of the right legmeasuring 7.2 x 2.4x 0.1 cm. Wound base is granular. No malodor or probe to bone. No sign of infection. Excisional debridement of the right leg lateral aspect full-thickness ulcerationdown to and including subcutaneous tissue with a number 5 mm dermal curette without incident. Predebridement measurement was 7.0 x 2.1 x 0.1 cm. Postdebridement measurement was 7.2 x 2.4 x 0.1 cm. Musculoskeletal: Mild pain to palpation to full-thickness ulceration. No pain with calf compression. Debridement Note Debridement Note Debridement Free Text: Excisional debridement of the right leg lateral aspect full-thickness ulceration down to and including subcutaneous tissue with a number 5 mm dermal curette without incident. Predebridement measurement was 7.0x 2.1 x 0.1 cm. Postdebridement measurement was 7.2 x 2.4 x 0.1 cm. Post-Debridement Measurements and Additional Note: Post-Debridement Measurements/Treatment - Nurse 1 - General Ulcer Assessment Start: 11/29/24 09:38 Freq: Status: Active Protocol: GALE Activity Type Activity Date Activity User E-sign Co-sign Detail Recorded Client Recorded Date Recorded By Document 11/29/24 09:38 KW [id number] 11/29/24 09:45 KW 11/29/24 09:38 - Today's Visit Information Type of service Follow-up Visit (Physician/GAS PROVER ) Arrival Mode Ambulatory Patient Identification Verified (Name & Yes ) Height and Weight Body Mass Index (BMI) 44.6 BMI Classification Obese Vital Signs Temperature (97.8 F-99.1 F) 97.8 F Temperature Source Temporal Pulse Rate (60-100) 56 L Pulse Location Monitor Respiratory Rate (12-18) 18 Respiratory rate source Observation Oxygen Delivery Method Room Air Blood Pressure (90/60-120/80) 127/67 H Blood Pressure Mean (mm Hg) 87 Source Monitor Position Semi-Fowlers Blood Pressure Location Left Arm Pain Scale: 0-10 Numeric Is Patient Pain Free? Yes WC - Nurse 1 - General Ulcer Measurement Start: 11/29/24 09:38 Freq: Status: Active Protocol: Activity Type Activity Date Activity User E-sign Co-sign Detail Recorded Client Recorded Date Recorded By Document 11/29/24 09:38 HANNAH [id number] 11/29/24 09:45 HANNAH 11/29/24 09:38 Wound Center Nurse 1 #5 RT LAT LE POST-OP -Current Size (cm) - Length 8.4 -Current Size (cm) - Width 2.5 -Current Size (cm) - Depth 0.1 -Total Square Cm 21.00 -Epithelialization Large 67-100% -Exudate Amt Medium -Exudate Type Serosanguineous -Wound Margin Distinct, Outline Attached -Granulation Amt Large (67-100%) -Granulation Quality Red -Texture (Mariza-wound Skin Appearance) Assessed, Scarring -Moisture (Mariza-wound Skin Appearance) Assessed -Color (Mariza-wound Skin Appearance) Assessed -Temperature (Mariza-wound Skin No Abnormality Appearance) (Pt Warm) -Tenderness on Palpation (Mariza-wound No Skin Appearance) -Ulcer Cleansing Soap and Water -Foul Odor after Cleansing No -Anesthetic Used 4% Lidocaine Solution Right Calf (cm) 35.7 Right Ankle (cm) 24 WC - Nurse 2 - General Ulcer CM Notes Start: 11/29/24 09:38 Freq: Status: Active Protocol: Activity Type Activity Date Activity User E-sign Co-sign Detail Recorded Client Recorded Date Recorded By Document 11/29/24 10:03 TALI [id number] 11/29/24 10:04 TALI 11/29/24 10:03 Wound Center Nurse 2 #5 RT LAT LE POST-OP -Post Debridement (cm) - Length 7.2 -Post Debridement (cm) - Width 2.4 -Post Debridement (cm) - Depth 0.1 -Total Square (Post) (cm) 17.28 -Area of Debridement (cm) - Length 7.2 -Area of Debridement (cm) - Width 2.4 -Total Square (Area) (cm) 17.28 -Tunneling No -Undermining/Tunneling No -Circular Undermining No -Wound/Ulcer Outcome Not Healed -Ulcer Cleansing Rinsed/ Irrigated with Saline -Foul Odor after Cleansing No -Bioengineered Tissue No -Bleeding Controlled with Pressure -Treatment Response Procedure Tolerated Well -Offloading No -Debridement - Subq, 1st 20sq cm Yes Pain Scale: 0-10 Numeric Is Patient Pain Free? Yes - Nurse 3 - General Ulcer D/C NN Start: 11/29/24 09:38 Freq: Status: Active Protocol: Activity Type Activity Date Activity User E-sign Co-sign Detail Recorded Client Recorded Date Recorded By Document 11/29/24 10:17 [id number] 11/29/24 10:18 11/29/24 10:17 Wound Care Center Nurse 3 #5 RT LAT LE POST-OP -Ulcer Cleansing Not Cleansed -Foul Odor after Cleansing No -Primary Dressing Applied Promogran Lalit Matter -Primary Dressing Covered/Secured with Dry Gauze & Roll Gauze, Secured with Tape -Promogran Lalit Matter 1 LLE -Tubular Bandage Double Layer -Size of Tubigrip Used Size E -Size E ($) 2 RLE -Lotion applied to leg before No compression wrap -Compression Wrap Brittany Wrap Pain Scale: 0-10 Numeric Is Patient Pain Free? Yes - Visit Discharge Discharge Condition Stable Ambulatory Status Ambulatory Transportation Private Auto Clinical Summary of Care Provided Yes Assessment/Plan Assessment/Plan (1) Non-pressure chronic ulcer of 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: CODE(S): L97.212 - Non-pressure chronic ulcer of 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 PLAN: Patient was examined and evaluated. All findings were discussed with the patient. All questions were answered to the patient's satisfaction. Excisional debridement of the right leg lateral aspect full-thickness ulcerationdown to and including subcutaneous tissue with a number 5 mm dermal curette without incident. Predebridement measurement was 7.0 x 2.1 x 0.1 cm. Postdebridement measurement was 7.2 x 2.4 x 0.1 cm. Right lower extremities werecleaned and pat dry. Moist Lalit was fitted to the size of the wound followed by dry sterile dressing and Brittany wrap was applied. Continue the same orders for dressing changes and washing of the full-thickness wound with showers was dispensed to the patient to get back to the nursing staff at [facility] facility. Follow-up at the wound care center with Dr. Shannon in 3 week. 11/29/24 1245 Cosigner Signature (if applicable): CC: ~ Signed [facility]05-13-2025 History of Present illness Narrative* Lakshmi Springer, RT(R) - 11/21/2024 9:45 AM EDT Radiology Service Progress Note DATE OF SERVICE: November 21, 2024 TIME: 10:46 AM PATIENT IDENTITY VERIFICATION COMPLETED USING TWO (2) STANDARD IDENTIFIERS: Name and Date of confirmed by patient verbally. FALL SCREENING: Has the patient had 2 falls in the last year or 1 fall with injury or currently using an Ambulatory Assistive Device (Walker, Cane, Wheelchair, Crutches, etc.)? Yes, Patient High Riskfor Falls What interventions were put in place to prevent falls during this visit? Yellow Falls Risk Wristband Applied, Instructed Patient to Call for Help if Needed, Offered Assistance with Transfers/Clothing, Instructed Patient to Remain Seated (Not on Exam Table) Until Exam, and Increased Observations by Caregivers PATIENT GENDER DATA: Assigned male at PATIENT RELEVANT IMPLANT DATA REVIEWED: Not Applicable PATIENT PRESENTS WITH AN IMPLANTABLE OR ATTACHED AUTOPSY PATHOLOGIST: No ALLERGIES: Reviewed and unchanged CONTRAST ALLERGY: NO. EXAM: CT -CONTRAST INDUCED NEPHROPATHY RISK FACTORS: Patient age > 60 years CREATININE: Creatinine Date Value Ref Range Status 11/25/2023 1.36 0.50 - 1.40 mg/dL Final Comment: Patients receiving either N-Acetylcysteine (NAC) or Metamizole prior to venipuncture, may have falsely depressed results. 11/18/2023 1.35 0.50 - 1.40 mg/dL Final Comment: Patients receiving either N-Acetylcysteine (NAC) or Metamizole prior to venipuncture, may have falsely depressed results. Creatinine (POCT) Date Value Ref Range Status 11/21/2024 1.40 (A) 0.60 - 1.30 mg/dL Final eGFR (POCT) Date Value Ref Range Status 11/21/2024 54 mL/min/1.73 m2 Final P.O.C.T. RESULTS: POC done: Yes, See Lab Tab November 21, 2024 TREATMENT: N/A PERIPHERAL IV DATA: Ambulatory: A power injectable PICC was accessed in the Right side. Blood Return, Flushed easily with normal saline, Good Blood Return Post Injection, and No Complications RADIOLOGY DEPARTMENT: CT; Exam(s) Completed: Kidney SIGNATURE: RT Catherine(R) PATIENT NAME: Jadon Alvarez DATE: November 21, 2024 TIME: 10:46 AM [facility] NoteHNO ID: [id number] Author: LAKSHMI SPRINGER RT(R) Service: Radiology Author Type: Technologist Type: Progress Notes Filed: 11/21/2024 10:49 Note Text: Radiology Service Progress Note DATE OF SERVICE: November 21, 2024 TIME: 10:46 AM PATIENT IDENTITY VERIFICATION COMPLETED USING TWO (2) STANDARD IDENTIFIERS: Name and Date of confirmed by patient verbally. FALL SCREENING: Has the patient had 2 falls in the last year or 1 fall with injury or currently using an Ambulatory Assistive Device (Walker, Cane, Wheelchair, Crutches, etc.)? Yes, Patient High Risk for Falls What interventions were put in place to prevent falls during this visit? Yellow Falls Risk Wristband Applied, Instructed Patient to Call for Help if Needed, Offered Assistance with Transfers/Clothing, Instructed Patient to Remain Seated (Not on Exam Table) Until Exam, and Increased Observations by Caregivers PATIENT GENDER DATA: Assigned male at PATIENT RELEVANT IMPLANT DATA REVIEWED: Not Applicable PATIENT PRESENTS WITH AN IMPLANTABLE OR ATTACHED AUTOPSY PATHOLOGIST: No ALLERGIES: Reviewed and unchanged CONTRAST ALLERGY: NO. EXAM: CT -CONTRAST INDUCED NEPHROPATHY RISK FACTORS: Patient age > 60 years CREATININE: Creatinine Date Value Ref Range Status 11/25/2023 1.36 0.50 - 1.40 mg/dL Final Comment: Patients receiving either N-Acetylcysteine (NAC) or Metamizole prior to venipuncture, may have falsely depressed results. 11/18/2023 1.35 0.50 - 1.40 mg/dL Final Comment: Patients receiving either N-Acetylcysteine (NAC) or Metamizole prior to venipuncture, may have falsely depressed results. Creatinine (POCT) Date Value Ref Range Status 11/21/2024 1.40 (A) 0.60 - 1.30 mg/dL Final eGFR (POCT) Date Value Ref Range Status 11/21/2024 54 mL/min/1.73 m2 Final P.O.C.T. RESULTS: POC done: Yes, See Lab Tab November 21, 2024 TREATMENT: N/A PERIPHERAL IV DATA: Ambulatory: A power injectable PICC was accessed in the Right side. Blood Return, Flushed easily with normal saline, Good Blood Return Post Injection, and No Complications RADIOLOGY DEPARTMENT: CT; Exam(s) Completed: Kidney SIGNATURE: Lakshmi Springer, RT(R) PATIENT NAME: Jadon Alvarez DATE: November 21, 2024 TIME: 10:46 [facility]04-23-2025 NoteHNO ID: [id number] Author: SHAR DOWNS MD Service: ? Author Type: Physician Type: Progress Notes Filed: 11/01/2024 14:53 Note Text: [facility] ESTABLISHED PATIENT NOTE PATIENT: Jadon Alvarez (69 year old) PCP: Ignacia Reyna DO DATE OF SERVICE: 11/01/2024 SUMMARY: Mr. Alvarez is a 69 year old male who is here for: Assessment AND Plan Renal mass, left Left 5.6 cm exophytic renal mass Multiple renal cysts Not fully characterized on single phase study Plan CT renal protocol. Plan CXR Follow up to review results Orders: CT KIDNEY WO/W IVCON; Future iv contrast (will be provided with radiology test); CT kidney wow Inject, intravenously, once for 1 dose.No IV access, insert saline lock prior to the beginning of sedation, infusion, injection of imaging exam. Discontinue saline lock post exam. If Pt. has a central line or IVAD, may access for administration according to line specific nursing protocol. Once exam is complete flush line and de-access according to line specific nursing protocol in the CT contrast administration guidelines link. CREATININE BLD; Future XR CHEST 2V FRONTAL/LAT; Future Adrenal nodule (HCC) Left 1.6 cm incidental adrenal nodule Benign prostatic hyperplasia with urinary retention Poor health Wheelchair Aricept for dementia In nursing facility Morbid obesity Anticoagulated on Eliquis [address] Cystoscopy in 2023 On tamsulosin Chronic indwelling Martines Can stop tamsulosin Plan change catheter every 4 weeks at facility Other specified disorders of kidney and ureter Orders: CT KIDNEY WO/W IVCON; Future FOLLOW UP: Return in about 4 weeks (around 11/29/2024). CHIEF COMPLAINT: Patient presents with: Kidney Problem: Mass HISTORY OF PRESENT ILLNESS: Prior notes were reviewed. The patient reports fatigue and ongoing issues with a urinary catheter. He notes a recent catheter change resulted in significant bleeding for 2 days, necessitating hospitalization. He expresses a desire to regain the ability to void independently, but acknowledges that his prostate is causing a complete urinary obstruction. He inquires about the possibility of surgery to address this issue. A recent scan, not specifically designed to evaluate the kidneys, revealed a suspicious mass on the left kidney. 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 He expresses concern about the potential need for surgery, given his current medical condition. REVIEW OF SYSTEMS: Genitourinary: Unable to void Constitutional: unintentional weight loss - denies, fevers - denies Cardiovascular: new or worsening chest pain - denies Respiratory: new or worsening shortness of breath - denies Gastrointestinal: constipation - denies, vomiting - denies Hematologic/Lymphatic: easy bleeding or bruising - denies ALLERGIES: ALLERGIES Allergen Reactions Ibuprofen Unknown MEDICATIONS: donepezil (ARICEPT) 5 mg tablet Gabapentin 100 mg tab Take by mouth. heparin sod,porcine/0.9 % NaCl (HEPARIN FLUSH INTRAVENOUS) Inject intravenously. lactulose 20 gram/30 mL solution LANTUS SOLOSTAR U-100 INSULIN 100 unit/mL (3 mL) lurasidone (LATUDA) 40 mg tablet potassium chloride ER (KLOR-CON M10) 10 mEq tablet torsemide (DEMADEX) 20 mg tablet vancomycin HCl in 5 % dextrose (VANCOMYCIN IN DEXTROSE 5 % INTRAVENOUS) Inject intravenously. amLODIPine (NORVASC) 5 mg tablet Take 1 tablet by mouth every afternoon. ELIQUIS 5 mg tab(s) Take 1 tablet by mouth every 12 hours. traZODone (DESYREL) 50 mg tablet SYMBICORT 160-4.5 mcg/actuation inhaler INHALE 2 PUFFS EVERY DAY atorvastatin (LIPITOR) 20 mg tablet Take 20 mg by mouth once daily. aspirin 81 mg cap Take by mouth. iv contrast (will be provided with radiology test) CT kidney wow Inject, intravenously, once for 1 dose.No IV access, insert saline lock prior to the beginning of sedation, infusion, injection of imaging exam. Discontinue saline lock post exam. If Pt. has a central line or IVAD, may access for administration according to line specific nursing protocol. Once exam is complete flush line and de-access according to line specific nursing protocol in the CT contrast administration guidelines link. CEFDINIR ORAL Take 300 mg by mouth two times a day. (Patient not taking: Reported on 11/01/2024) bumetanide (BUMEX) 1 mg tablet TAKE 12 TABLET BY MOUTH TWICE DAILY (Patient not taking: Reported on 11/01/2024) ferrous sulfate 3 (more content not included)...[facility]04-09-2025 Consult note [facility] Medical Records Department [address] [place] [address] Counseling Note - Pharmacy 10/18/24 9186 MR#: [id number] Acct: [id number] Name: JADON ALVAREZ Rep #:[id number] : 1955 69 From: Kinga Paniagua PCP: Kathleen Herzog MD Status:ADM IN Y [place] [facility] [place] [id number] [place] Med Reconciliation Pharmacy Service has performed discharge medication reconciliation for this patient. The patient's discharge medication list was reviewed for discrepancies and discrepancies were resolved. Medications at Discharge Home Medications aspirin 81 mg tablet,delayed release 81 mg PO DAILY AFIB 03/17/19 amlodipine 5 mg tablet 5 mg PO DAILY AFIB 10/28/23 apixaban 5 mg tablet (Eliquis) 5 mg PO BID AFIB 10/28/23 atorvastatin 20 mg tablet 20 mg PO QHS HYPERLIPIDEMIA 10/28/23 melatonin 3 mg tablet 6 mg PO QHS INSOMNIA 10/28/23 tamsulosin 0.4 mg capsule 0.4 mg PO QHS PROSTATIC HYPERPLASIA 12/22/23 acetaminophen 325 mg tablet (Tylenol) 650 mg PO Q4H PRN pain 06/01/24 cyanocobalamin (vitamin B-12) 1,000 mcg capsule 500 mcg PO DAILY VITAMIN 06/01/24 insulin glargine 100 unit/mL (3 mL) subcutaneous pen (Lantus Solostar U-100 Insulin) 23 unit subcutQHS DIABETIC 06/01/24 donepezil 5 mg tablet 5 mg PO QHS MEMORY 08/16/24 gabapentin 100 mg capsule 200 mg PO TID NEUROPATHY 08/16/24 insulin lispro 100 unit/mL subcutaneous pen (Humalog KwikPen (U-100) Insulin) See Protocol subcut TID DIABETIC 08/16/24 lurasidone 40 mg tablet 40 mg PO QHS MOOD 08/16/24 potassium chloride 10 mEq capsule,extended release 10 meq PO BID POTASSIUM 08/16/24 torsemide 20 mg tablet 20 mg PO BID HEART 08/16/24 budesonide-formoterol HFA 160 mcg-4.5 mcg/actuation aerosol inhaler (Symbicort) 1 puff inhalation DAILY COPD 09/16/24 lactulose 20 gram/30 mL oral solution 30 ml PO DAILY CONSTIPATION 09/16/24 trazodone 100 mg tablet 100 mg PO QHS insomnia 09/16/24 vancomycin 1 gram/200 mL in dextrose 5 % intravenous piggyback 1,000 mg IV Q12H 21 days #8,400 mL 10/18/24 10/18/24 1636 Date _ Kinga Paniagua Cosigner Signature (if applicable): Date CC: ~ Signed [facility]04-09-2025 Consult note Author Kinga Paniagua [facility] Note Date/Time October 18, 2024 8:40 pm [facility] Medical Records Department [address] [place] [id number] Counseling Note - Pharmacy 10/18/24 1636 MR#: [id number] Acct: [id number] Name: JADON ALVAREZ Kenia Rep #:[id number] : 1955 69 From: Kinga Paniagua PCP: Kathleen Herzog MD Status:ADM IN Location: [place] [address] Pharmacy [place] Med Reconciliation Pharmacy Service has performed discharge medication reconciliation for this patient. The patient's discharge medication list was reviewed for discrepancies and discrepancies were resolved. Medications at Discharge Home Medications aspirin 81 mg tablet,delayed release 81 mg PO DAILY AFIB 03/17/19 amlodipine 5 mg tablet 5 mg PO DAILY AFIB 10/28/23 apixaban 5 mg tablet (Eliquis) 5 mg PO BID AFIB 10/28/23 atorvastatin 20 mg tablet 20 mg PO QHS HYPERLIPIDEMIA 10/28/23 melatonin 3 mg tablet 6 mg PO QHS INSOMNIA 10/28/23 tamsulosin 0.4 mg capsule 0.4 mg PO QHS PROSTATIC HYPERPLASIA 12/22/23 acetaminophen 325 mg tablet (Tylenol) 650 mg PO Q4H PRN pain 06/01/24 cyanocobalamin (vitamin B-12) 1,000 mcg capsule 500 mcg PO DAILY VITAMIN 06/01/24 insulin glargine 100 unit/mL (3 mL) subcutaneous pen (Lantus Solostar U-100 Insulin) 23 unit subcut QHS DIABETIC 06/01/24 donepezil 5 mg tablet 5 mg PO QHS MEMORY 08/16/24 gabapentin 100 mg capsule 200 mg PO TID NEUROPATHY 08/16/24 insulin lispro 100 unit/mL subcutaneous pen (Humalog KwikPen (U-100) Insulin) See Protocol subcut TID DIABETIC 08/16/24 lurasidone 40 mg tablet 40 mg PO QHS MOOD 08/16/24 potassium chloride 10 mEq capsule,extended release 10 meq PO BID POTASSIUM 08/16/24 torsemide 20 mg tablet 20 mg PO BID HEART 08/16/24 budesonide-formoterol HFA 160 mcg-4.5 mcg/actuation aerosol inhaler (Symbicort) 1 puff inhalation DAILY COPD 09/16/24 lactulose 20 gram/30 mL oral solution 30 ml PO DAILY CONSTIPATION 09/16/24 trazodone 100 mg tablet 100 mg PO QHS insomnia 09/16/24 vancomycin 1 gram/200 mL in dextrose 5 % intravenous piggyback 1,000 mg IV Q12H 21 days #8,400 mL 10/18/24 10/18/24 6946 <Electronically signed by Kinga Paniagua> Date _ Kinga Paniagua Cosigner Signature (if applicable): Date CC: ~ Signed [facility] Work Phone: [phone] Discharge summary Author Vivek Gates [facility] Note Date/Time October 18, 2024 2:24 pm [facility] Medical Records Department [address] [place] [address] Discharge Summary 10/18/24 1423 MR#: [id number] Acct: [id number] Name: JADON ALVAREZ Rep #:[id number] : 1955 69 From: Vivek Gates DO PCP: Kathleen Herzog MD Status:ADM IN [place] [facility] [id number] Providers Date of Admission: 10/13/24 Primary Care Physician: Dr. Kathleen Herzog MD Consultations 10/13/24 15:13 Consult: Infectious Disease Routine Consulting Provider: Channing Barnard Reason for Consult: MRSA bacteremia EMERGENT Consult: No MD Notified: Yes Date Notified: 10/16/24 Time Notified: 06:03 Method of Notification: Text 10/13/24 16:15 Consult: Onc/Wound/projector operator Routine Comment: Reason for Consult:: chronic wound to right outer calf 10/14/24 13:01 Consult: Podiatry Routine Consulting Provider: Shayna Montoya Reason for Consult: RT. lateral superficial ulcer, 8 cm, MRSA Bacteremia EMERGENT Consult: No MD Notified: Yes Date Notified: 10/14/24 Time Notified: 13:01 Method of Notification: Verbal 10/14/24 22:52 Consult: Onc/Wound/projector operator Routine Comment: Reason for Consult:: RLE chron ulcer Reason For Visit: MRSA BACTEREMIA Diagnosis Discharge Diagnosis (1) Bacteremia: Status: Acute Code(s): R78.81 - Bacteremia Plan: MRSA positive on 10/10 (1 of 2). Negative on 10/13. 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 aureus and [employer]. Recheck BCx on 10/16 negative. ID consulted. TTE no vegatation, though concerning for endocarditis by ID. FLORENCE shows no source of emboli. No vegetation. on vancomycin and CTX. (2) Cellulitis of right lower limb: Status: Acute Code(s): L03.115 - Cellulitis of right lower limb (3) UTI (urinary tract infection): Status: Resolved Code(s): N39.0 - Urinary tract infection, site not specified (4) Sepsis: Status: Resolved Code(s): A41.9 - Sepsis, unspecified organism Plan Chronic conditions: * Left renal mass: follow up with * HTN: amlodipine * HLP: statin * DM2: glargine. add SSI. VTE prophylaxis: not indicated already on apixaban. Medications at Discharge Home Medications aspirin 81 mg tablet,delayed release 81 mg PO DAILY AFIB 03/17/19 amlodipine 5 mg tablet 5 mg PO DAILY AFIB 10/28/23 apixaban 5 mg tablet (Eliquis) 5 mg PO BID AFIB 10/28/23 atorvastatin 20 mg tablet 20 mg PO QHS HYPERLIPIDEMIA 10/28/23 melatonin 3 mg tablet 6 mg PO QHS INSOMNIA 10/28/23 tamsulosin 0.4 mg capsule 0.4 mg PO QHS PROSTATIC HYPERPLASIA 12/22/23 acetaminophen 325 mg tablet (Tylenol) 650 mg PO Q4H PRN pain 06/01/24 cyanocobalamin (vitamin B-12) 1,000 mcg capsule 500 mcg PO DAILY VITAMIN 06/01/24 insulin glargine 100 unit/mL (3 mL) subcutaneous pen (Lantus Solostar U-100 Insulin) 23 unit subcut QHS DIABETIC 06/01/24 donepezil 5 mg tablet 5 mg PO QHS MEMORY 08/16/24 gabapentin 100 mg capsule 200 mg PO TID NEUROPATHY 08/16/24 insulin lispro 100 unit/mL subcutaneous pen (Humalog KwikPen (U-100) Insulin) See Protocol subcut TID DIABETIC 08/16/24 lurasidone 40 mg tablet 40 mg PO QHS MOOD 08/16/24 potassium chloride 10 mEq capsule,extended release 10 meq PO BID POTASSIUM 08/16/24 torsemide 20 mg tablet 20 mg PO BID HEART 08/16/24 budesonide-formoterol HFA 160 mcg-4.5 mcg/actuation aerosol inhaler (Symbicort) 1 puff inhalation DAILY COPD 09/16/24 lactulose 20 gram/30 mL oral solution 30 ml PO DAILY CONSTIPATION 09/16/24 trazodone 100 mg tablet 100 mg PO QHS insomnia 09/16/24 vancomycin 1 gram/200 mL in dextrose 5 % intravenous piggyback 1,000 mg IV Q12H 21 days #8,400 mL 10/18/24 Hospital Course Operations None Procedures Transesophageal Echo, Transthoracic echo and - (PICC) Summary of Care Provided Minutes Spent on Discharge: 35 Hospital Course: Patient presented with bacteremia. Was found to have MRSA and cultures were positive 1st and 5th but were negative on the fourth and the seventh. TTE and FLORENCE were negative. Patient being treated empirically for endocarditis as there is some findings concerning for endocarditis. Patient will be on IV vancomycin. PICC line to be placed. Weight / BMI Weight Weight: 134.9 kg Body Mass Index (BMI) 44.0 ABG / Lab / Microbiology Data 10/18/24 07:04 10/18/24 07:04 Laboratory: Laboratory Results - last 24 hr 10/17/24 15:58: POC Glucose 160 H 10/17/24 21:35: POC Glucose 119 H 10/18/24 05:55: POC Glucose 121 H 10/18/24 07:04: WBC 4.2 L, RBC 3.72 L, Hgb 10.3 L, Hct 32.2 L, MCV 86.6, MCH 27.7, MCHC 32.0, RDW Std Deviation 50.1 H, RDW Coeff of Carlito 15.9 H, Plt Count 214, MPV 12.2 H, Immature Gran % (Auto) 0.700, Neut % (Auto) 60.6, Lymph % (Auto) 22.8, Stoddard % (Auto) 13.7 H, Eos % (Auto) 1.7, Baso % (Auto) 0.5, AbsoluteNeuts (auto) 2.5, Absolute Lymphs (auto) 0.95, Nucleated RBC % 0, Sodium 136, Potassium 4.1, Chloride 102, Carbon Dioxide 25.9, Anion Gap 8, BUN 14, Creatinine 0.92, Estim Creat Clear Calc 101.83, Est GFR (MDRD) Non-Af 90, BUN/Creatinine Ratio 15.5, Glucose 104 H, Calcium 9.0 10/18/24 11:20: POC Glucose 92 10/18/24 11:58: Vancomycin Trough 14.2 Microbiology: Microbiology 10/13/24 12:40 Blood Culture (Wb) - Anticubital Left Blood Culture - Final No growth in 5 days. 10/14/24 12:00 Wound - Leg, Right Gram Stain - Final 10/14/24 12:00 Wound - Leg, Right Wound Culture - Final Meth. resistant Staph. aureus Coag Negative Staph 10/13/24 13:15 Blood Culture (Wb) - Anticubital Left Blood Culture - Preliminary No growth in 48 hours. Radiography Diagnostic Testing: Radiology Impression Transesophageal Echocardiogram 10/17/24 14:57 Interpretation Summary No cardiac source of emboli noted. There is no evidence of a mass or vegetation.This does not rule out endocarditis. Normal LV size. The left ventricular ejection fraction is 60 %. Normal prosthetic aortic valve. Ordering Physician: Vivek Gates Referring Physician: Kathleen Herzog Performed By: Carmella Gonsalez RDCS, RVT D/C Instructions DC O2, CPAP, BIPAP Needs Home O2 Discharge instructions: No Meaningful Use Info Meaningful Use Meaningful Use Diagnoses (Choose all that apply): None applicable Ischemic Stroke Statin Dosing Therapy Reference: STATIN DOSE THERAPY REFERENCE: * Patients > 75 years receive moderate or high dose statin therapy. * Patients 75 years or YOUNGER should receive HIGH intensity statin dose unless contraindicated. You will be required to document reason for non-treatment if statin daily dose does not meet guidelines. HIGH DOSE STATIN THERAPY DAILY Atorvastatin > than or = to 40 mg Rosuvastatin > than or = to 20 mg Amlodipine + Atorvastatin > than or = to 2.5/40 mg Ezetimibe + Simvastatin 10/80 mg Simvastatin 80mg Discharge Plan Admission Admit Date/Time: 10/13/24 13:59 Primary Reason for Your Visit: Bacteremia Attending Provider: Vivek Gates Primary Care Provider: Kathleen Herzog Consulting Providers: Monika Garcias; Shayna Montoya; Channing Barnard; Colby May Discharge Orders/Prescriptions Prescriptions: New vancomycin in dextrose 5 % 1 gram/200 mL Piggyback 1,000 mg IV Q12H 21 Days Qty: 8400 0RF Rx Instructions: stop date 11/10/24. Dx: MRSA bacteremia. Weekly bmp, cbc, and vanc trough. Fax to [phone]. Routine picc care per protocol. Continued tamsulosin 0.4 mg capsule 0.4 mg PO QHS aspirin 81 MG tablet,delayed release (DR/EC) 81 mg PO DAILY atorvastatin 20 mg tablet 20 mg PO QHS amlodipine 5 mg tablet 5 mg PO DAILY Eliquis 5 mg tablet 5 mg PO BID melatonin 3 mg tablet 6 mg PO QHS acetaminophen [Tylenol] 325 mg tablet 650 mg PO Q4H PRN (Reason: pain) insulin glargine [Lantus Solostar U-100 Insulin] 100 unit/mL (3 mL) insulin pen 23 unit subcut QHS Rx Instructions: sliding scale cyanocobalamin (vitamin B-12) 1,000 mcg capsule 500 mcg PO DAILY donepezil 5 mg tablet 5 mg PO QHS gabapentin 100 mg capsule 200 mg PO TID insulin lispro [Humalog KwikPen Insulin] 100 unit/mL insulin pen See Protocol subcut TID Protocol: 6. Sliding Scale Insulin Custom Condition: 151-200 Dose/Route: 2 UNITS Condition: 201-250 Dose/Route: 4 UNITS Condition: 251-300 Dose/Route: 6 UNITS Condition: 301-350 Dose/Route: 8 UNITS Condition: 351-400 Dose/Route: 10 Protocol Text: Custom Sliding Scale Rx Instructions: sliding scale lurasidone 40 mg tablet 40 mg PO QHS Rx Instructions: must administer with food (at least 350 calories) potassium chloride 10 mEq capsule, extended release 10 meq PO BID torsemide 20 mg tablet 20 mg PO BID lactulose 20 gram/30 mL solution 30 ml PO DAILY budesonide-formoterol [Symbicort] 160-4.5 mcg/actuation HFA aerosol inhaler 1 puff inhalation DAILY trazodone 100 mg tablet 100 mg PO QHS Discontinued cefpodoxime 100 mg tablet 100 mg PO BID Qty: 20 0RF Rx Instructions: must administer with a meal/food Referrals / Follow Up: Shayna Montoya DPM [Med Staff - Active Staff] - Kathleen Herzog MD [Primary Care Provider] - Within 2 Weeks Disposition Disposition (needs filled in before D/C Order can be placed): Long-Term Facility Charges/Coding Visit Charges Inpatient E&M: 35147 Disch Hosp >30min 10/18/24 1424 <Electronically signed by Vivek Gates DO> Cosigner Signature (if applicable): CC: Dr. Vivek Gates DO; Kathleen Herzog MD~ Signed [facility] Work Phone: [phone] Discharge summary Author Vivek Gates [facility] Note Date/Time October 18, 2024 2:22 pm [facility] Medical Records Department [address] [place] [address] Transfer to [facility] MR#: [id number] Acct: [id number] Name: JADON ALVAREZ Rep #:[id number] : 1955 69 From: Vivek Gates DO PCP: Kathleen Herzog MD Status:ADM IN Certification of patient admission REQUIRED AT TIME OF ADMISSION. I CERTIFY THAT POST-HOSPITAL ECF SERVICES ARE REQUIRED TO BE GIVEN ON AN IN-PATIENT BASIS BECAUSE OF THE ABOVE NAMED PATIENT'S NEED FOR GROUP HOME CARE ON A CONTINUING BASIS FOR THE CONDITION(S) FOR WHICH HE/SHE WAS RECEIVING IN-PATIENT HOSPITAL SERVICES PRIOR TO HIS/HER TRANSFER TO THE F. 10/18/24 1422<Electronically signed by Vivek Gates DO> Diet Diet Order/Speech Therapy: 10/16/24 13:45 Diet: Regular - General Type of Dietary Supplement:: Glucerna Shake Diet Comments: 120cc Routine Orders/Code Status Routine Lab Work: BMP Code Status: DNRCC-A (no intubation) DC O2, CPAP, BIPAP needs Home O2 Discharge instructions: No Wound(s) Right outer calf: Wound Type: Stasis Ulcer Dressing Change: AntiMicrobial (Aquacel AG, etc) Therapies Weight Bearing: Full weight bearing Physical Therapy: Eval and Treat Occupational Therapy: Eval and Treat Problem/Diagnosis (1) Bacteremia: Status: Acute Code(s): R78.81 - Bacteremia Plan: MRSA positive on 10/10 (1 of 2). Negative on 10/13. 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 aureus and [employer]. Recheck BCx on 10/16 negative. ID consulted. TTE no vegatation, though concerning for endocarditis by ID. FLORENCE shows no source of emboli. No vegetation. on vancomycin and CTX. (2) Cellulitis of right lower limb: Status: Acute Code(s): L03.115 - Cellulitis of right lower limb (3) UTI (urinary tract infection): Status: Resolved Code(s): N39.0 - Urinary tract infection, site not specified (4) Sepsis: Status: Resolved Code(s): A41.9 - Sepsis, unspecified organism Plan Chronic conditions: * Left renal mass: follow up with * HTN: amlodipine * HLP: statin * DM2: glargine. add SSI. VTE prophylaxis: not indicated already on apixaban. Allergies/Procedures Done in Hospital Allergies ibuprofen (From Nuprin) Allergy (Verified 10/13/24 11:49) Unknown Procedures: PICC line placement, Transthoracic Echo and - (FLORENCE) Type of Care/Length of Stay Estimated LOS: Convalescent Care Less Than 30 days Type of Care Needed: Skilled Rehab Potential: Good Prognosis: Good Additional Orders/Day of Discharge Day of Discharge: 10/18/24 Dietary and Speech Recommendations Dietitian Recommendations/Changes: Will liberalize diet to Regular until po intake consistently improves and then resume therapeutic diet of 1800 elver Consistent CHO/ Cardiac diet to help w/ medical conditions Continue glucerna shake w/ medpass for increased nutrition if consumed Discharge Plan Admission Admit Date/Time: 10/13/24 13:59 Primary Reason for Your Visit: Bacteremia Attending Provider: Vivek Gates Primary Care Provider: Kathleen Herzog Consulting Providers: Monika Garcias; Shayna Montoya; Channing Barnard; Colby May Discharge Orders/Prescriptions Prescriptions: New vancomycin in dextrose 5 % 1 gram/200 mL Piggyback 1,000 mg IV Q12H 21 Days Qty: 8400 0RF Rx Instructions: stop date 11/10/24. Dx: MRSA bacteremia. Weekly bmp, cbc, and vanc trough. Fax to [phone]. Routine picc care per protocol. Continued tamsulosin 0.4 mg capsule 0.4 mg PO QHS aspirin 81 MG tablet,delayed release (DR/EC) 81 mg PO DAILY atorvastatin 20 mg tablet 20 mg PO QHS amlodipine 5 mg tablet 5 mg PO DAILY Eliquis 5 mg tablet 5 mg PO BID melatonin 3 mg tablet 6 mg PO QHS acetaminophen [Tylenol] 325 mg tablet 650 mg PO Q4H PRN (Reason: pain) insulin glargine [Lantus Solostar U-100 Insulin] 100 unit/mL (3 mL) insulin pen 23 unit subcut QHS Rx Instructions: sliding scale cyanocobalamin (vitamin B-12) 1,000 mcg capsule 500 mcg PO DAILY donepezil 5 mg tablet 5 mg PO QHS gabapentin 100 mg capsule 200 mg PO TID insulin lispro [Humalog KwikPen Insulin] 100 unit/mL insulin pen See Protocol subcut TID Protocol: 6. Sliding Scale Insulin Custom Condition: 151-200 Dose/Route: 2 UNITS Condition: 201-250 Dose/Route: 4 UNITS Condition: 251-300 Dose/Route: 6 UNITS Condition: 301-350 Dose/Route: 8 UNITS Condition: 351-400 Dose/Route: 10 Protocol Text: Custom Sliding Scale Rx Instructions: sliding scale lurasidone 40 mg tablet 40 mg PO QHS Rx Instructions: must administer with food (at least 350 calories) potassium chloride 10 mEq capsule, extended release 10 meq PO BID torsemide 20 mg tablet 20 mg PO BID lactulose 20 gram/30 mL solution 30 ml PO DAILY budesonide-formoterol [Symbicort] 160-4.5 mcg/actuation HFA aerosol inhaler 1 puff inhalation DAILY trazodone 100 mg tablet 100 mg PO QHS Discontinued cefpodoxime 100 mg tablet 100 mg PO BID Qty: 20 0RF Rx Instructions: must administer with a meal/food Referrals / Follow Up: Shayna Montoya DPM [Med Staff - Active Staff] - Kathleen Herzog MD [Primary Care Provider] - Within 2 Weeks Disposition Disposition (needs filled in before D/C Order can be placed): Long-Term Facility 10/18/24 1422 <Electronically signed by Vivek Gates DO> Cosigner Signature (if applicable): CC: RUBEN Montoya; Dr. Monika Garcias MD; Dr. Colby May MD; Dr.Robert Akil MD; Kathleen Herzog MD ~ [facility] Work Phone: [phone] Progress note Author Channing Barnard [facility] Note Date/Time October 18, 2024 1:15 pm [facility] Medical Records Department [address] [place] [address] Progress Note - Infect Disease 10/18/24 1314 MR#: [id number] Acct: [id number] Name: JADON ALVAREZ Rep #:[id number] : 1955 69 From: Channing garcia MD PCP: Kathleen Herzog MD Status:ADM IN Location: [address] Physical Exam Narrative Feeling ok, no fever, had FLORENCE. Const alert and no apparent distress General Appearance: cooperative Resp normal air movement and clear to auscultation bilaterally Cardio regular rate and regular rhythm GI soft to palpation, non-tender and non-distended Skin no rashes or lesions noted ID ID: Route of nutrition/ use of supplements: [] Nutritional Intake: [] IV Site: [] Martines Catheter: [] Assessment & Plan Assessment/Plan (1) Bacteremia: PLAN: MRSA and proteus bacteremia. Concern for endocarditis given murmur and splinter hemorrhage on L index finger. Echo showed no veg. Repeat bcx neg since 10/13/24. On vanc, ceftriaxone. VALENTIN improved, fever improved. Wound cx with MRSA and CoNS. FLORENCE showed no veg. Will order picc and iv vanc with stop date 11/10/24 with weekly labs. Ok to stop ceftriaxone tomorrow. Will follow prn, d/w counseling case manager and wrote rx (2) Cellulitis of right lower limb: (3) UTI (urinary tract infection): (4) Sepsis: 10/18/24 1315 <Electronically signed by Channing Barnard MD> Cosigner Signature (if applicable): CC: ~ Signed [facility] Work Phone: [phone] Discharge summary [facility] Medical Records Department [address] [place] [address] Discharge Summary 10/18/24 1423 MR#: [id number] Acct: [id number] Name: JADON ALVAREZ Rep #:[id number] : 1955 69 From: Vivek Gates DO PCP: Kathleen Herzog MD Status:ADM IN Location: [address] Providers Date of Admission: 10/13/24 Primary Care Physician: Dr. Kathleen Herzog MD Consultations 10/13/24 15:13 Consult: Infectious Disease Routine Consulting Provider: Channing Barnard Reason for Consult: MRSA bacteremia EMERGENT Consult: No MD Notified: Yes Date Notified: 10/16/24 Time Notified: 06:03 Method of Notification: Text 10/13/24 16:15 Consult: Onc/Wound/projector operator Routine Comment: Reason for Consult:: chronic wound to right outer calf 10/14/24 13:01 Consult: Podiatry Routine Consulting Provider: Shayna Montoya Reason for Consult: RT. lateral superficial ulcer, 8 cm, MRSA Bacteremia EMERGENT Consult: No Notified: Yes Date Notified: 10/14/24 Time Notified: 13:01 Method of Notification: Verbal 10/14/24 22:52 Consult: Onc/Wound/projector operator Routine Comment: Reason for Consult:: RLE chron ulcer Reason For Visit: MRSA BACTEREMIA Diagnosis Discharge Diagnosis (1) Bacteremia: Status: Acute Code(s): R78.81 - Bacteremia Plan: MRSA positive on 10/10 (1 of 2). Negative on 10/13. 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 aureus and [employer]. Recheck BCx on 10/16 negative. ID consulted. TTE no vegatation, though concerning for endocarditis by ID. FLORENCE shows no source of emboli. No vegetation. on vancomycin and CTX. (2) Cellulitis of right lower limb: Status: Acute Code(s): L03.115 - Cellulitis of right lower limb (3) UTI (urinary tract infection): Status: Resolved Code(s): N39.0 - Urinary tract infection, site not specified (4) Sepsis: Status: Resolved Code(s): A41.9 - Sepsis, unspecified organism Plan Chronic conditions: * Left renal mass: follow up with * HTN: amlodipine * HLP: statin * DM2: glargine. add SSI. VTE prophylaxis: not indicated already on apixaban. Medications at Discharge Home Medications aspirin 81 mg tablet,delayed release 81 mg PO DAILY AFIB 03/17/19 amlodipine 5 mg tablet 5 mg PO DAILY AFIB 10/28/23 apixaban 5 mg tablet (Eliquis) 5 mg PO BID AFIB 10/28/23 atorvastatin 20 mg tablet 20 mg PO QHS HYPERLIPIDEMIA 10/28/23 melatonin 3 mg tablet 6 mg PO QHS INSOMNIA 10/28/23 tamsulosin 0.4 mg capsule 0.4 mg PO QHS PROSTATIC HYPERPLASIA 12/22/23 acetaminophen 325 mg tablet (Tylenol) 650 mg PO Q4H PRN pain 06/01/24 cyanocobalamin (vitamin B-12) 1,000 mcg capsule 500 mcg PO DAILY VITAMIN 06/01/24 insulin glargine 100 unit/mL (3 mL) subcutaneous pen (Lantus Solostar U-100 Insulin) 23 unit subcutQHS DIABETIC 06/01/24 donepezil 5 mg tablet 5 mg PO QHS MEMORY 08/16/24 gabapentin 100 mg capsule 200 mg PO TID NEUROPATHY 08/16/24 insulin lispro 100 unit/mL subcutaneous pen (Humalog KwikPen (U-100) Insulin) See Protocol subcut TID DIABETIC 08/16/24 lurasidone 40 mg tablet 40 mg PO QHS MOOD 08/16/24 potassium chloride 10 mEq capsule,extended release 10 meq PO BID POTASSIUM 08/16/24 torsemide 20 mg tablet 20 mg PO BID HEART 08/16/24 budesonide-formoterol HFA 160 mcg-4.5 mcg/actuation aerosol inhaler (Symbicort) 1 puff inhalation DAILY COPD 09/16/24 lactulose 20 gram/30 mL oral solution 30 ml PO DAILY CONSTIPATION 09/16/24 trazodone 100 mg tablet 100 mg PO QHS insomnia 09/16/24 vancomycin 1 gram/200 mL in dextrose 5 % intravenous piggyback 1,000 mg IV Q12H 21 days #8,400 mL 10/18/24 Hospital Course Operations None Procedures Transesophageal Echo, Transthoracic echo and - (PICC) Summary of Care Provided Minutes Spent on Discharge: 35 Hospital Course: Patient presented with bacteremia. Was found to have MRSA and cultures were positive 1st and 5th but were negative on the fourth and the seventh. TTE and FLORENCE were negative. Patient being treated empirically for endocarditis as there is some findings concerning for endocarditis. Patient will be on IV vancomycin. PICC line to be placed. Weight / BMI Weight Weight: 134.9 kg Body Mass Index (BMI) 44.0 ABG / Lab / Microbiology Data 10/18/24 07:04 10/18/24 07:04 Laboratory: Laboratory Results - last 24 hr 10/17/24 15:58: POC Glucose 160 H 10/17/24 21:35: POC Glucose 119 H 10/18/24 05:55: POC Glucose 121 H 10/18/24 07:04: WBC 4.2 L, RBC 3.72 L, Hgb 10.3 L, Hct 32.2 L, MCV 86.6, MCH 27.7, MCHC 32.0, RDW Std Deviation 50.1 H, RDW Coeff of Carlito 15.9 H, Plt Count 214, MPV 12.2 H, Immature Gran % (Auto) 0.700, Neut % (Auto) 60.6, Lymph % (Auto) 22.8, Stoddard % (Auto) 13.7 H, Eos % (Auto) 1.7, Baso % (Auto) 0.5, AbsoluteNeuts (auto) 2.5, Absolute Lymphs (auto) 0.95, Nucleated RBC % 0, Sodium 136, Potassium 4.1, Chloride 102, Carbon Dioxide 25.9, Anion Gap 8, BUN 14, Creatinine 0.92, Estim Creat Clear Calc 101.83, Est GFR (MDRD) Non-Af 90, BUN/Creatinine Ratio 15.5, Glucose 104 H, Calcium 9.0 10/18/24 11:20: POC Glucose 92 10/18/24 11:58: Vancomycin Trough 14.2 Microbiology: Microbiology 10/13/24 12:40 Blood Culture (Wb) - Anticubital Left Blood Culture - Final No growth in 5 days. 10/14/24 12:00 Wound - Leg, Right Gram Stain - Final 10/14/24 12:00 Wound - Leg, Right Wound Culture - Final Meth. resistant Staph. aureus Coag Negative Staph 10/13/24 13:15 Blood Culture (Wb) - Anticubital Left Blood Culture - Preliminary No growth in 48 hours. Radiography Diagnostic Testing: Radiology Impression Transesophageal Echocardiogram 10/17/24 14:57 Interpretation Summary No cardiac source of emboli noted. There is no evidence of a mass or vegetation.This does not rule out endocarditis. Normal LV size. The left ventricular ejection fraction is 60 %. Normal prosthetic aortic valve. Ordering Physician: Vivek Gates Referring Physician: Kathleen Herzog Performed By: Carmella Gonsalez, LOC, RVT D/C Instructions DC O2, CPAP, BIPAP Needs Home O2 Discharge instructions: No Meaningful Use Info Meaningful Use Meaningful Use Diagnoses (Choose all that apply): None applicable Ischemic Stroke Statin Dosing Therapy Reference: STATIN DOSE THERAPY REFERENCE: * Patients > 75 years receive moderate or high dose statin therapy. * Patients 75 years or YOUNGER should receive HIGH intensity statin dose unless contraindicated. You will be required to document reason for non-treatment if statin daily dose does not meet guidelines. HIGH DOSE STATIN THERAPY DAILY Atorvastatin > than or = to 40 mg Rosuvastatin > than or = to 20 mg Amlodipine + Atorvastatin > than or = to 2.5/40 mg Ezetimibe + Simvastatin 10/80 mg Simvastatin 80mg Discharge Plan Admission Admit Date/Time: 10/13/24 13:59 Primary Reason for Your Visit: Bacteremia Attending Provider: Vivek Gates Primary Care Provider: Kathleen Herzog Consulting Providers: Monika Garcias; Shayna Montoya; Channing Barnard; Colby May Discharge Orders/Prescriptions Prescriptions: New vancomycin in dextrose 5 % 1 gram/200 mL Piggyback 1,000 mg IV Q12H 21 Days Qty: 8400 0RF Rx Instructions: stop date 11/10/24. Dx: MRSA bacteremia. Weekly bmp, cbc, and vanc trough. Fax to [phone]. Routine picc care per protocol. Continued tamsulosin 0.4 mg capsule 0.4 mg PO QHS aspirin 81 MG tablet,delayed release (DR/EC) 81 mg PO DAILY atorvastatin 20 mg tablet 20 mg PO QHS amlodipine 5 mg tablet 5 mg PO DAILY Eliquis 5 mg tablet 5 mg PO BID melatonin 3 mg tablet 6 mg PO QHS acetaminophen [Tylenol] 325 mg tablet 650 mg PO Q4H PRN (Reason: pain) insulin glargine [Lantus Solostar U-100 Insulin] 100 unit/mL (3 mL) insulin pen 23 unit subcut QHS Rx Instructions: sliding scale cyanocobalamin (vitamin B-12) 1,000 mcg capsule 500 mcg PO DAILY donepezil 5 mg tablet 5 mg PO QHS gabapentin 100 mg capsule 200 mg PO TID insulin lispro [Humalog KwikPen Insulin] 100 unit/mL insulin pen See Protocol subcut TID Protocol: 6. Sliding Scale Insulin Custom Condition: 151-200 Dose/Route: 2 UNITS Condition: 201-250 Dose/Route: 4 UNITS Condition: 251-300 Dose/Route: 6 UNITS Condition: 301-350 Dose/Route: 8 UNITS Condition: 351-400 Dose/Route: 10 Protocol Text: Custom Sliding Scale Rx Instructions: sliding scale lurasidone 40 mg tablet 40 mg PO QHS Rx Instructions: must administer with food (at least 350 calories) potassium chloride 10 mEq capsule, extended release 10 meq PO BID torsemide 20 mg tablet 20 mg PO BID lactulose 20 gram/30 mL solution 30 ml PO DAILY budesonide-formoterol [Symbicort] 160-4.5 mcg/actuation HFA aerosol inhaler 1 puff inhalation DAILY trazodone 100 mg tablet 100 mg PO QHS Discontinued cefpodoxime 100 mg tablet 100 mg PO BID Qty: 20 0RF Rx Instructions: must administer with a meal/food Referrals / Follow Up: Shayna Montoya DPM [Med Staff - Active Staff] - Kathleen Herzog MD [Primary Care Provider] - Within 2 Weeks Disposition Disposition (needs filled in before D/C Order can be placed): Long-Term Facility Charges/Coding Visit Charges Inpatient E&M: 00072 Disch Hosp >30min 10/18/24 1424 Cosigner Signature (if applicable): CC: Dr. Vivek Gates DO; Kathleen Herzog MD~ Signed [facility]04-09-[address] [facility] Discharge summary [facility] Medical Records Department [address] [facility] [place] [address] Transfer to [facility] MR#: [id number] Acct: [id number] Name: ALE ALVAREZINGRID Aquino Rep #:[id number] : 1955 69 From: Vivek Gates DO PCP: Kathleen Herzog MD Status:ADM IN Certification of patient admission REQUIRED AT TIME OF ADMISSION. I CERTIFY THAT POST-HOSPITAL ECF SERVICES ARE REQUIRED TO BE GIVEN ON AN IN-PATIENT BASIS BECAUSE OF THE ABOVE NAMED PATIENT'S NEED FOR GROUP HOME CARE ON A CONTINUING BASIS FOR THE CONDITION(S) FOR WHICH HE/SHE WAS RECEIVING IN-PATIENT HOSPITAL SERVICES PRIOR TO HIS/HER TRANSFER TO THE ECF. 10/18/24 1422 Diet Diet Order/Speech Therapy: 10/16/24 13:45 Diet: Regular - General Type of Dietary Supplement:: Glucerna Shake Diet Comments: 120cc Routine Orders/Code Status Routine Lab Work: BMP Code Status: DNRCC-A (no intubation) DC O2, CPAP, BIPAP needs Home O2 Discharge instructions: No Wound(s) Right outer calf: Wound Type: Stasis Ulcer Dressing Change: AntiMicrobial (Aquacel AG, etc) Therapies Weight Bearing: Full weight bearing Physical Therapy: Eval and Treat Occupational Therapy: Eval and Treat Problem/Diagnosis (1) Bacteremia: Status: Acute Code(s): R78.81 - Bacteremia Plan: MRSA positive on 10/10 (1 of 2). Negative on 10/13. 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 aureus and [employer] STATION. Recheck BCx on 10/16 negative. ID consulted. TTE no vegatation, though concerning for endocarditis by ID. FLORENCE shows no source of emboli. No vegetation. on vancomycin and CTX. (2) Cellulitis of right lower limb: Status: Acute Code(s): L03.115 - Cellulitis of right lower limb (3) UTI (urinary tract infection): Status: Resolved Code(s): N39.0 - Urinary tract infection, site not specified (4) Sepsis: Status: Resolved Code(s): A41.9 - Sepsis, unspecified organism Plan Chronic conditions: * Left renal mass: follow up with * HTN: amlodipine * HLP: statin * DM2: glargine. add SSI. VTE prophylaxis: not indicated already on apixaban. Allergies/Procedures Done in Hospital Allergies ibuprofen (From Nuprin) Allergy (Verified 10/13/24 11:49) Unknown Procedures: PICC line placement, Transthoracic Echo and - (FLORENCE) Type of Care/Length of Stay Estimated LOS: Convalescent Care Less Than 30 days Type of Care Needed: Skilled Rehab Potential: Good Prognosis: Good Additional Orders/Day of Discharge Day of Discharge: 10/18/24 Dietary and Speech Recommendations Dietitian Recommendations/Changes: Will liberalize diet to Regular until po intake consistently improves and then resume therapeutic diet of 1800 elver Consistent CHO/ Cardiac diet to help w/ medical conditions Continue glucerna shake w/ medpass for increased nutrition if consumed Discharge Plan Admission Admit Date/Time: 10/13/24 13:59 Primary Reason for Your Visit: Bacteremia Attending Provider: Vivek Gates Primary Care Provider: Kathleen Herzog Consulting Providers: Monika Garcias; Shayna Montoya; Channing Barnard; Colby May Discharge Orders/Prescriptions Prescriptions: New vancomycin in dextrose 5 % 1 gram/200 mL Piggyback 1,000 mg IV Q12H 21 Days Qty: 8400 0RF Rx Instructions: stop date 11/10/24. Dx: MRSA bacteremia. Weekly bmp, cbc, and vanc trough. Fax to [phone]. Routine picc care per protocol. Continued tamsulosin 0.4 mg capsule 0.4 mg PO QHS aspirin 81 MG tablet,delayed release (DR/EC) 81 mg PO DAILY atorvastatin 20 mg tablet 20 mg PO QHS amlodipine 5 mg tablet 5 mg PO DAILY Eliquis 5 mg tablet 5 mg PO BID melatonin 3 mg tablet 6 mg PO QHS acetaminophen [Tylenol] 325 mg tablet 650 mg PO Q4H PRN (Reason: pain) insulin glargine [Lantus Solostar U-100 Insulin] 100 unit/mL (3 mL) insulin pen 23 unit subcut QHS Rx Instructions: sliding scale cyanocobalamin (vitamin B-12) 1,000 mcg capsule 500 mcg PO DAILY donepezil 5 mg tablet 5 mg PO QHS gabapentin 100 mg capsule 200 mg PO TID insulin lispro [Humalog KwikPen Insulin] 100 unit/mL insulin pen See Protocol subcut TID Protocol: 6. Sliding Scale Insulin Custom Condition: 151-200 Dose/Route: 2 UNITS Condition: 201-250 Dose/Route: 4 UNITS Condition: 251-300 Dose/Route: 6 UNITS Condition: 301-350 Dose/Route: 8 UNITS Condition: 351-400 Dose/Route: 10 Protocol Text: Custom Sliding Scale Rx Instructions: sliding scale lurasidone 40 mg tablet 40 mg PO QHS Rx Instructions: must administer with food (at least 350 calories) potassium chloride 10 mEq capsule, extended release 10 meq PO BID torsemide 20 mg tablet 20 mg PO BID lactulose 20 gram/30 mL solution 30 ml PO DAILY budesonide-formoterol [Symbicort] 160-4.5 mcg/actuation HFA aerosol inhaler 1 puff inhalation DAILY trazodone 100 mg tablet 100 mg PO QHS Discontinued cefpodoxime 100 mg tablet 100 mg PO BID Qty: 20 0RF Rx Instructions: must administer with a meal/food Referrals / Follow Up: Shayna Montoya DPM [Med Staff - Active Staff] - Kathleen Herzog MD [Primary Care Provider] - Within 2 Weeks Disposition Disposition (needs filled in before D/C Order can be placed): Long-Term Facility 10/18/24 1422 Cosigner Signature (if applicable): CC: RUBEN Montoya; Dr. Monika Garcias MD; Dr. Colby May MD; Dr.Robert Akil MD;Kathleen Herzog MD ~ [facility]04-09-2025 Progress note Author Vivek Gates [facility] Note Date/Time October 18, 2024 12:2 0pm [facility] Medical Records Department [address] [place] [address] Progress Note - Hospitalist 10/18/24711 MR#: [id number] Acct: [id number] Name: JADON ALVAREZ Kenia Rep #:[id number] : 1955 69 From: Vivek Gates DO PCP: Kathleen Herzog MD Status:ADM IN Location: [place] [address]1 Reason for Visit Reason for Visit: Diagnoses Sepsis, unspecified organism (10/13/24) Cellulitis of right lower limb (10/13/24) Non-pressure chronic ulcer of 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 (10/13/24) Urinary tract infection, site not specified (10/13/24) Bacteremia (10/13/24) Subjective Subjective Groggy post FLORENCE. Objective Data Objective Data Vital Signs: Vital Signs Temp Pulse Resp BP Pulse Ox O2 Del Method 36.7 C 50 L 16 142/68 H 97 Room Air 10/18/24 02:10 10/18/24 02:10 10/18/24 02:10 10/18/24 02:10 10/18/24 02:10 10/18/24 02:10 Oxygen Delivery Method Room Air Weight: 134.9 kg Body Mass Index (BMI) 44.0 Intake & Output: Intake and Output for Last 24 Hours 10/16/24 10/17/24 10/18/24 23:59 23:59 23:59 Intake Total 290 / 290 570 / 570 200 / 200 Output Total 2150 / 2570 2870 / 3470 1800 / 1800 Balance -1860 / -2280 -2300 / -2900 -1600 / -1600 Lab / Micro Data 10/18/24 07:04 10/18/24 07:04 Labs: Laboratory Results - last 24 hr 10/17/24 11:26: POC Glucose 133 H 10/17/24 15:58: POC Glucose 160 H 10/17/24 21:35: POC Glucose 119 H 10/18/24 05:55: POC Glucose 121 H Micro: Microbiology 10/14/24 12:00 Wound - Leg, Right Gram Stain - Final 10/14/24 12:00 Wound - Leg, Right Wound Culture - Final Meth. resistant Staph. aureus Coag Negative Staph 10/13/24 13:15 Blood Culture (Wb) - Anticubital Left Blood Culture - Preliminary No growth in 48 hours. 10/13/24 12:40 Blood Culture (Wb) - Anticubital Left Blood Culture - Preliminary No growth in 48 hours. Physical Exam Const alert and no apparent distress Constitutional Narrative: groggy. afebrile. HEENT head/scalp atraumatic and moist oral mucous membranes Resp normal respiratory effort, no retractions, no use of accessory muscles and clearto auscultation bilaterally Cardio regular rate, regular rhythm, S1 normal heart sound and S2 normal heart sound GI normal to inspection, nondistended, normoactive bowel sounds, soft to palpation,non-tender and non-distended Extremity normal to inspection, full ROM and no clubbing, cyanosis or edema Neuro Sensorium / Orientation: awake and alert Assessment & Plan Assessment/Plan (1) Bacteremia: PLAN: MRSA positive on 10/10 (1 of 2). Negative on 10/13. 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 aureus and [employer]. Recheck BCx on 10/16 negative. ID consulted. TTE no vegatation, though concerning for endocarditis by ID. FLORENCE shows no source of emboli. No vegetation. on vancomycin and CTX. (2) Non-pressure chronic ulcer of 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: PLAN: debrided by podiatry on 10/15 PLAN: Plan Chronic conditions: * Left renal mass: follow up with * HTN: amlodipine * HLP: statin * DM2: glargine. add SSI. VTE prophylaxis: not indicated already on apixaban. Charges/Coding Visit Charges Inpatient E&M: 53223 Subs Hosp L2 10/18/24 1220 <Electronically signed by Vivek Gates DO> Cosigner Signature (if applicable): CC: ~ Signed [facility] Work Phone: 1(584) 930-992904-09-2025 Progress note [facility] Medical Records Department [address] [place] [address] Progress Note - Infect Disease 10/18/24 1314 MR#: [id number] Acct: [id number] Name: JADON ALVAREZ Rep #:[id number] : 1955 69 From: Channing garcia MD PCP: Kathleen Herzog MD Status:ADM IN Location: [address] Physical Exam Narrative Feeling ok, no fever, had FLORENCE. Const alert and no apparent distress General Appearance: cooperative Resp normal air movement and clear to auscultation bilaterally Cardio regular rate and regular rhythm GI soft to palpation, non-tender and non-distended Skin no rashes or lesions noted ID ID: Route of nutrition/ use of supplements: [] Nutritional Intake: [] IV Site: [] Martines Catheter: [] Assessment & Plan Assessment/Plan (1) Bacteremia: PLAN: MRSA and proteus bacteremia. Concern for endocarditis given murmur and splinter hemorrhage onL index finger. Echo showed no veg. Repeat bcx neg since 10/13/24. On vanc, ceftriaxone. VALENTIN improved, fever improved. Wound cx with MRSA and CoNS. FLORENCE showed no veg. Will order picc and iv vanc with stop date 11/10/24 with weekly labs. Ok to stop ceftriaxone tomorrow. Will follow prn, d/w counseling case manager and wrote rx (2) Cellulitis of right lower limb: (3) UTI (urinary tract infection): (4) Sepsis: 10/18/24 1315 Cosigner Signature (if applicable): CC: ~ Signed [facility]04-09-2025 Progress note [facility] Medical Records Department [address] [place] [address] Progress Note - Hospitalist 10/18/24711 MR#: [id number] Acct: [id number] Name: JADON ALVAREZ Rep #:[id number] : 1955 69 From: Vivek Gates DO PCP: Kathleen Herzog MD Status:ADM IN [place] [facility] [place] [id number] Reason for Visit Reason for Visit: Diagnoses Sepsis, unspecified organism (10/13/24) Cellulitis of right lower limb (10/13/24) Non-pressure chronic ulcer of 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 (10/13/24) Urinary tract infection, site not specified (10/13/24) Bacteremia (10/13/24) Subjective Subjective Groggy post FLORENCE. Objective Data Objective Data Vital Signs: Vital Signs Temp Pulse Resp BP Pulse Ox O2 Del Method 36.7 C 50 L 16 142/68 H 97 Room Air 10/18/24 02:10 10/18/24 02:10 10/18/24 02:10 10/18/24 02:10 10/18/24 02:10 10/18/24 02:10 Oxygen Delivery Method Room Air Weight: 134.9 kg Body Mass Index (BMI) 44.0 Intake & Output: Intake and Output for Last 24 Hours 10/16/24 10/17/24 10/18/24 23:59 23:59 23:59 Intake Total 290 / 290 570 / 570 200 / 200 Output Total 2150 / 2570 2870 / 3470 1800 / 1800 Balance -1860 / -2280 -2300 / -2900 -1600 / -1600 Lab / Micro Data 10/18/24 07:04 10/18/24 07:04 Labs: Laboratory Results - last 24 hr 10/17/24 11:26: POC Glucose 133 H 10/17/24 15:58: POC Glucose 160 H 10/17/24 21:35: POC Glucose 119 H 10/18/24 05:55: POC Glucose 121 H Micro: Microbiology 10/14/24 12:00 Wound - Leg, Right Gram Stain - Final 10/14/24 12:00 Wound - Leg, Right Wound Culture - Final Meth. resistant Staph. aureus Coag Negative Staph 10/13/24 13:15 Blood Culture (Wb) - Anticubital Left Blood Culture - Preliminary No growth in 48 hours. 10/13/24 12:40 Blood Culture (Wb) - Anticubital Left Blood Culture - Preliminary No growth in 48 hours. Physical Exam Const alert and no apparent distress Constitutional Narrative: groggy. afebrile. HEENT head/scalp atraumatic and moist oral mucous membranes Resp normal respiratory effort, no retractions, no use of accessory muscles and clearto auscultation bilaterally Cardio regular rate, regular rhythm, S1 normal heart sound and S2 normal heart sound GI normal to inspection, nondistended, normoactive bowel sounds, soft to palpation,non-tender and non-distended Extremity normal to inspection, full ROM and no clubbing, cyanosis or edema Neuro Sensorium / Orientation: awake and alert Assessment & Plan Assessment/Plan (1) Bacteremia: PLAN: MRSA positive on 10/10 (1 of 2). Negative on 10/13. 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 aureus and [employer]. Recheck BCx on 10/16 negative. ID consulted. TTE no vegatation, though concerning for endocarditis by ID. FLORENCE shows no source of emboli. No vegetation. on vancomycin and CTX. (2) Non-pressure chronic ulcer of 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: PLAN: debrided by podiatry on 10/15 PLAN: Plan Chronic conditions: * Left renal mass: follow up with * HTN: amlodipine * HLP: statin * DM2: glargine. add SSI. VTE prophylaxis: not indicated already on apixaban. Charges/Coding Visit Charges Inpatient E&M: 87812 Subs Hosp L2 10/18/24 1220 Cosigner Signature (if applicable): CC: ~ Signed [facility]04-08-2025 Progress note Author Vivek Gates [facility] Note Date/Time October 17, 2024 2:58 pm [facility] Medical Records Department [address] [place] [address] Progress Note - Hospitalist 10/17/24 0724 MR#: [id number] Acct: [id number] Name: JADON ALVAREZ Rep #:[id number] : 1955 69 From: Vivek Gates DO PCP: Kathleen Herzog MD Status:ADM IN Location: [place] [address] Reason for Visit Reason for Visit: Diagnoses Sepsis, unspecified organism (10/13/24) Cellulitis of right lower limb (10/13/24) Non-pressure chronic ulcer of 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 (10/13/24) Urinary tract infection, site not specified (10/13/24) Bacteremia (10/13/24) Subjective Subjective Has been allowing nursing to draw labs and administer meds (except nystatin S+S and topical agents). Feels he is never going home. Objective Data Objective Data Vital Signs: Vital Signs Temp Pulse Resp BP Pulse Ox O2 Del Method 36.6 C 55 L 16 126/63 H 96 Room Air 10/17/24 02:45 10/17/24 02:45 10/17/24 02:45 10/17/24 02:45 10/17/24 02:45 10/17/24 02:45 Oxygen Delivery Method Room Air Weight: 134.9 kg Body Mass Index (BMI) 44.0 Intake & Output: Intake and Output for Last 24 Hours 10/15/24 10/16/24 10/17/24 23:59 23:59 23:59 Intake Total 1625 / 1625 290 / 290 200 / 200 Output Total 3050 / 3050 2150 / 2570 1320 / 1320 Balance -1425 / -1425 -1860 / -2280 -1120 / -1120 Lab / Micro Data 10/17/24 04:32 10/17/24 04:32 Labs: Laboratory Results - last 24 hr 10/16/24 04:45: Differential Comment SCANNED 10/16/24 14:09: POC Glucose 93 10/16/24 16:12: POC Glucose 192 H 10/16/24 22:17: POC Glucose 150 H 10/16/24 23:07: Random Vancomycin 10.3 10/17/24 04:32: WBC 4.1 L, RBC 3.50 L, Hgb 9.6 L, Hct 30.1 L, MCV 86.0, MCH 27.4, MCHC 31.9 L, RDW Std Deviation 50.5 H, RDW Coeff of Carlito 16.1 H, Plt Count 212, MPV 12.3 H, Immature Gran % (Auto) 1.200 H, Neut % (Auto) 48.4, Lymph % (Auto) 31.1, Stoddard % (Auto) 16.1 H, Eos % (Auto) 2.7, Baso % (Auto) 0.5, AbsoluteNeuts (auto) 2.0, Absolute Lymphs (auto) 1.28, Nucleated RBC % 0, Sodium 139, Potassium 3.9, Chloride 106, Carbon Dioxide 24.6, Anion Gap 9, BUN 16, Creatinine 0.88, Estim Creat Clear Calc 106.46, Est GFR (MDRD) Non-Af 93, BUN/Creatinine Ratio 17.7, Glucose 101 H, Calcium 8.3 10/17/24 06:12: POC Glucose 108 H Micro: Microbiology 10/14/24 12:00 Wound - Leg, Right Gram Stain - Final 10/14/24 12:00 Wound - Leg, Right Wound Culture - Final Meth. resistant Staph. aureus Coag Negative Staph 10/13/24 13:15 Blood Culture (Wb) - Anticubital Left Blood Culture - Preliminary No growth in 48 hours. 10/13/24 12:40 Blood Culture (Wb) - Anticubital Left Blood Culture - Preliminary No growth in 48 hours. Radiography Diagnostic Testing: Radiology Impression Extremity Arterial Study 10/15/24 09:43 Interpretation Summary Right PERICO 1.37, normal. TBI and Doppler/PVR waveforms of the right leg normal atrest. Left PERICO 1.2, normal. TBI and Doppler/PVR waveforms of the left leg normal at rest. Ordering Physician: Shayna Montoya Referring Physician: Kathleen Herzog Performed By: Rasheed Norman, RVT Venous Doppler Study 10/15/24 09:43 Interpretation Summary Chronic deep vein thrombosis noted left femoral vein, popliteal vein, tibioperoneal trunk vein Deep veins of the right lower extremity are patent and compressible segmentally.There is no evidence of right lower extremity deep vein thrombosis. The bilateral great saphenous veins appear patent and compressible segmentally. Ordering Physician: Shayna Montoya Referring Physician: Saul Wang Performed By: Sheri Jones RVT Physical Exam Const alert and no apparent distress HEENT head/scalp atraumatic and moist oral mucous membranes Assessment & Plan Assessment/Plan (1) Bacteremia: PLAN: MRSA positive on 10/10 (1 of 2). Negative on 10/13. 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 aureus and [employer]. Recheck BCx. ID consulted. TTE no vegatation, though concerning for endocarditis by ID. ID recommending FLORENCE. on vancomycin and CTX. (2) Non-pressure chronic ulcer of 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: PLAN: debrided by podiatry on 10/15 PLAN: Plan Chronic conditions: * Left renal mass: follow up with * HTN: amlodipine * HLP: statin * DM2: glargine. add SSI. VTE prophylaxis: not indicated already on apixaban. Charges/Coding Visit Charges Inpatient E&M: 79588 Subs Hosp L1 10/17/24 1156 <Electronically signed by Vivek Gates DO> Myer Signature (if applicable): CC: ~ Signed ADDENDUM by Dr. Vivek Gates DO on 10/17/24 at 1458 Addendum pt reluctantly agreeing to FLORENCE. Will order. 10/17/24 1458<Electronically signed by Vivek Gates DO> Cosigner Signature (if applicable): cc: ~* Signed [facility] Work Phone: 1(170) 188-635204-08-2025 Progress note [facility] Medical Records Department [address] [place] [address] Progress Note - Hospitalist 10/17/24 0724 MR#: [id number] Acct: [id number] Name: JADON ALVAREZ Rep #:[id number] : 1955 69 From: Vivek Gates DO PCP: Kathleen Herzog MD Status:ADM IN Location: [address] Reason for Visit Reason for Visit: Diagnoses Sepsis, unspecified organism (10/13/24) Cellulitis of right lower limb (10/13/24) Non-pressure chronic ulcer of 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 (10/13/24) Urinary tract infection, site not specified (10/13/24) Bacteremia (10/13/24) Subjective Subjective Has been allowing nursing to draw labs and administer meds (except nystatin S+S and topical agents). Feels he is never going home. Objective Data Objective Data Vital Signs: Vital Signs Temp Pulse Resp BP Pulse Ox O2 Del Method 36.6 C 55 L 16 126/63 H 96 Room Air 10/17/24 02:45 10/17/24 02:45 10/17/24 02:45 10/17/24 02:45 10/17/24 02:45 10/17/24 02:45 Oxygen Delivery Method Room Air Weight: 134.9 kg Body Mass Index (BMI) 44.0 Intake & Output: Intake and Output for Last 24 Hours 10/15/24 10/16/24 10/17/24 23:59 23:59 23:59 Intake Total 1625 / 1625 290 / 290 200 / 200 Output Total 3050 / 3050 2150 / 2570 1320 / 1320 Balance -1425 / -1425 -1860 / -2280 -1120 / -1120 Lab / Micro Data 10/17/24 04:32 10/17/24 04:32 Labs: Laboratory Results - last 24 hr 10/16/24 04:45: Differential Comment SCANNED 10/16/24 14:09: POC Glucose 93 10/16/24 16:12: POC Glucose 192 H 10/16/24 22:17: POC Glucose 150 H 10/16/24 23:07: Random Vancomycin 10.3 10/17/24 04:32: WBC 4.1 L, RBC 3.50 L, Hgb 9.6 L, Hct 30.1 L, MCV 86.0, MCH 27.4, MCHC 31.9 L, RDW Std Deviation 50.5 H, RDW Coeff of Carlito 16.1 H, Plt Count 212, MPV 12.3 H, Immature Gran % (Auto) 1.200 H, Neut % (Auto) 48.4, Lymph % (Auto) 31.1, Stoddard % (Auto) 16.1 H, Eos % (Auto) 2.7, Baso % (Auto)0.5, AbsoluteNeuts (auto) 2.0, Absolute Lymphs (auto) 1.28, Nucleated RBC % 0, Sodium 139, Potassium 3.9, Chloride 106, Carbon Dioxide 24.6, Anion Gap 9, BUN 16, Creatinine 0.88, Estim Creat Clear Calc 106.46, Est GFR (MDRD) Non-Af 93, BUN/Creatinine Ratio 17.7, Glucose 101 H, Calcium 8.3 10/17/24 06:12: POC Glucose 108 H Micro: Microbiology 10/14/24 12:00 Wound - Leg, Right Gram Stain - Final 10/14/24 12:00 Wound - Leg, Right Wound Culture - Final Meth. resistant Staph. aureus Coag Negative Staph 10/13/24 13:15 Blood Culture (Wb) - Anticubital Left Blood Culture - Preliminary No growth in 48 hours. 10/13/24 12:40 Blood Culture (Wb) - Anticubital Left Blood Culture - Preliminary No growth in 48 hours. Radiography Diagnostic Testing: Radiology Impression Extremity Arterial Study 10/15/24 09:43 Interpretation Summary Right PERICO 1.37, normal. TBI and Doppler/PVR waveforms of the right leg normal atrest. Left PERICO 1.2, normal. TBI and Doppler/PVR waveforms of the left leg normal at rest. Ordering Physician: Shayna Montoya Referring Physician: Kathleen Herzog Performed By: Rasheed Norman RVT Venous Doppler Study 10/15/24 09:43 Interpretation Summary Chronic deep vein thrombosis noted left femoral vein, popliteal vein, tibioperoneal trunk vein Deep veins of the right lower extremity are patent and compressible segmentally.There is no evidence of right lower extremity deep vein thrombosis. The bilateral great saphenous veins appear patent and compressible segmentally. Ordering Physician: Shayna Montoya Referring Physician: Saul Wang Performed By: Sheri Jones RVT Physical Exam Const alert and no apparent distress HEENT head/scalp atraumatic and moist oral mucous membranes Assessment & Plan Assessment/Plan (1) Bacteremia: PLAN: MRSA positive on 10/10 (1 of 2). Negative on 10/13. 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 aureus and [employer]. Recheck BCx. ID consulted. TTE no vegatation, though concerning for endocarditis by ID. ID recommending FLORENCE. on vancomycin and CTX. (2) Non-pressure chronic ulcer of 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: PLAN: debrided by podiatry on 10/15 PLAN: Plan Chronic conditions: * Left renal mass: follow up with * HTN: amlodipine * HLP: statin * DM2: glargine. add SSI. VTE prophylaxis: not indicated already on apixaban. Charges/Coding Visit Charges Inpatient E&M: 18747 Subs Hosp L1 10/17/24 1156 Cosigner Signature (if applicable): CC: ~ Signed ADDENDUM by Dr. Vivek Gates DO on 10/17/24 at 1458 Addendum pt reluctantly agreeing to FLORENCE. Will order. 10/17/24 1458 Cosigner Signature (if applicable): cc: ~* Signed [facility]04-08-2025 Progress note Author Channing Barnard [facility] Note Date/Time October 17, 2024 9:58 am [facility] Medical Records Department [address] [place] [address] Progress Note - Infect Disease 10/17/24 0956 MR#: [id number] Acct: [id number] Name: JADON ALVAREZ Rep #:[id number] 1 : 1955 69 From: Channing garcia MD PCP: Kathleen Herzog MD Status:ADM IN [facility] Physical Exam Narrative Feeling ok, no fever, some soreness from sitting in chair. No cough. Const alert and no apparent distress General Appearance: cooperative Resp normal air movement and clear to auscultation bilaterally Cardio regular rate and regular rhythm Heart Sounds: murmur GI soft to palpation, non-tender and non-distended Skin no rashes or lesions noted ID ID: Route of nutrition/ use of supplements: [] Nutritional Intake: [] IV Site: [] Martines Catheter: [] Assessment & Plan Assessment/Plan (1) Bacteremia: PLAN: MRSA and proteus bacteremia. Concern for endocarditis given murmur and splinter hemorrhage on L index finger. Echo showed no veg. Repeat bcx pending. On vanc, ceftriaxone. VALENTIN improved, fever improved. Wound cx with MRSA and CoNS. Recommend FLORENCE; if he refuses, plan would be for 6 weeks iv abx at discharge. Will follow (2) Cellulitis of right lower limb: (3) UTI (urinary tract infection): (4) Sepsis: 10/17/24957 <Electronically signed by Channing Barnard MD> Cosigner Signature (if applicable): CC: ~ Signed [facility] Work Phone: 1(699) 733-968704-08-2025 Progress note [facility] Medical Records Department [address] [place] [address] Progress Note - Infect Disease 10/17/24 0956 MR#: [id number] Acct: [id number] Name: JADON ALVAREZ Rep #:[id number] 1 : 1955 69 From: Channing garcia MD PCP: Kathleen Herzog MD Status:ADM IN Location: [facility] Physical Exam Narrative Feeling ok, no fever, some soreness from sitting in chair. No cough. Const alert and no apparent distress General Appearance: cooperative Resp normal air movement and clear to auscultation bilaterally Cardio regular rate and regular rhythm Heart Sounds: murmur GI soft to palpation, non-tender and non-distended Skin no rashes or lesions noted ID ID: Route of nutrition/ use of supplements: [] Nutritional Intake: [] IV Site: [] Martines Catheter: [] Assessment & Plan Assessment/Plan (1) Bacteremia: PLAN: MRSA and proteus bacteremia. Concern for endocarditis given murmur and splinter hemorrhage onL index finger. Echo showed no veg. Repeat bcx pending. On vanc, ceftriaxone. VALENTIN improved, fever improved. Wound cx with MRSA and CoNS. Recommend FLORENCE; if he refuses, plan would be for 6 weeks iv abxat discharge. Will follow (2) Cellulitis of right lower limb: (3) UTI (urinary tract infection): (4) Sepsis: 10/17/24 0958 Cosigner Signature (if applicable): CC: ~ Signed [facility]04-08-2025 Progress note Author Vivek Gates [facility] Note Date/Time October 17, 2024 7:23 am [facility] Medical Records Department [address] [place] [address] Progress Note - Hospitalist 10/16/24 0801 MR#: [id number] Acct: [id number] Name: JADON ALVAREZ Rep #:[id number] 9 : 1955 69 From: Vivek Gates DO PCP: Kathleen Herzog MD Status:ADM IN Location: [place] [id number] Reason for Visit Reason for Visit: Diagnoses Cellulitis of right lower limb (10/13/24) Non-pressure chronic ulcer of 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 (10/13/24) Bacteremia (10/13/24) Subjective Subjective Declined labs. Wants to be left alone. Objective Data Objective Data Vital Signs: Vital Signs Temp Pulse Resp BP Pulse Ox O2 Del Method 36.6 C 51 L 18 131/64 H 93 Room Air 10/16/24 04:51 10/16/24 04:51 10/16/24 04:51 10/16/24 04:51 10/16/24 04:51 10/16/24 04:51 Oxygen Delivery Method Room Air Weight: 134.9 kg Body Mass Index (BMI) 44.0 Intake & Output: Intake and Output for Last 24 Hours 10/14/24 10/15/24 10/16/24 23:59 23:59 23:59 Intake Total 770 / 770 1625 / 1625 Output Total 3750 / 3750 3050 / 3050 1400 / 1400 Balance -2980 / -2980 -1425 / -1425 -1400 / -1400 Lab / Micro Data 10/17/24 04:32 10/17/24 04:32 Labs: Laboratory Results - last 24 hr 10/15/24 06:13: Platelet Estimate SLT DEC, Polychromasia 1+, Sodium 140, Potassium 3.9, Chloride 107, Carbon Dioxide 25.0, Anion Gap 8, BUN 19, Creatinine 0.94, Estim Creat Clear Calc 99.66, Est GFR (MDRD) Non-Af 87, BUN/Creatinine Ratio 19.7, Glucose 106 H, Calcium 8.3 10/15/24 12:48: POC Glucose 118 H 10/15/24 17:43: POC Glucose 170 H 10/15/24 21:23: POC Glucose 138 H 10/15/24 22:59: Vancomycin Trough 24.2 H 10/16/24 04:45: WBC 4.1 L, RBC 3.50 L, Hgb 9.7 L, Hct 30.6 L, MCV 87.4, MCH 27.7, MCHC 31.7 L, RDW Std Deviation 52.1 H, RDW Coeff of Carlito 16.5 H, Plt Count 165, MPV 12.4 H, Immature Gran % (Auto) 2.000 H, Neut % (Auto) 47.3, Lymph % (Auto) 32.7, Stoddard % (Auto) 13.3 H, Eos % (Auto) 4.2, Baso % (Auto) 0.5, AbsoluteNeuts (auto) 1.9 L, Absolute Lymphs (auto) 1.33, Nucleated RBC % 0, DifferentialComment SCANNED, Sodium 140, Potassium 4.0, Chloride 108, Carbon Dioxide 26.2, Anion Gap 5, BUN 20 H, Creatinine 0.98, Estim Creat Clear Calc 95.59, Est GFR (MDRD) Non-Af 84, BUN/Creatinine Ratio 20.0, Glucose 109 H, Calcium 8.3 10/16/24 04:55: POC Glucose 103 Micro: Microbiology 10/14/24 12:00 Wound - Leg, Right Gram Stain - Final 10/14/24 12:00 Wound - Leg, Right Wound Culture - Preliminary Staphylococcus aureus Coag Negative Staph 10/13/24 13:15 Blood Culture (Wb) - Anticubital Left Blood Culture - Preliminary No growth in 48 hours. 10/13/24 12:40 Blood Culture (Wb) - Anticubital Left Blood Culture - Preliminary No growth in 48 hours. Physical Exam Const alert and no apparent distress Constitutional Narrative: flat affect. no eye contact. declines to answer orientation questions. Assessment & Plan Assessment/Plan (1) Bacteremia: PLAN: MRSA positive on 10/10 (1 of 2). Negative on 10/13. 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 aureus and [employer]. Recheck BCx. ID consulted. FLORENCE no vegatation. on vancomycin (2) Non-pressure chronic ulcer of 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: PLAN: debrided by podiatry on 10/15 PLAN: Plan Chronic conditions: * Left renal mass: follow up with GI * HTN: amlodipine * HLP: statin * DM2: glargine. add SSI. VTE prophylaxis: not indicated already on apixaban. Charges/Coding Visit Charges Inpatient E&M: 13957 Subs Hosp L1 10/17/24 0723 <Electronically signed by Vivek Gates DO> Cosigner Signature (if applicable): CC: ~ Signed [facility] Work Phone: [phone]) 235-842304-08-2025 Progress note [facility] Medical Records Department [address] [place] [address] Progress Note - Hospitalist 10/16/24 0801 MR#: [id number] Acct: [id number] Name: ALE ALVAREZINGRID Aquino Rep #:[id number] 9 : 1955 69 From: Vivek Gates DO PCP: Kathleen Herzog MD Status:ADM IN Location: MS3 [id number] Reason for Visit Reason for Visit: Diagnoses Cellulitis of right lower limb (10/13/24) Non-pressure chronic ulcer of 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 (10/13/24) Bacteremia (10/13/24) Subjective Subjective Declined labs. Wants to be left alone. Objective Data Objective Data Vital Signs: Vital Signs Temp Pulse Resp BP Pulse Ox O2 Del Method 36.6 C 51 L 18 131/64 H 93 Room Air 10/16/24 04:51 10/16/24 04:51 10/16/24 04:51 10/16/24 04:51 10/16/24 04:51 10/16/24 04:51 Oxygen Delivery Method Room Air Weight: 134.9 kg Body Mass Index (BMI) 44.0 Intake & Output: Intake and Output for Last 24 Hours 10/14/24 10/15/24 10/16/24 23:59 23:59 23:59 Intake Total 770 / 770 1625 / 1625 Output Total 3750 / 3750 3050 / 3050 1400 / 1400 Balance -2980 / -2980 -1425 / -1425 -1400 / -1400 Lab / Micro Data 10/17/24 04:32 10/17/24 04:32 Labs: Laboratory Results - last 24 hr 10/15/24 06:13: Platelet Estimate SLT DEC, Polychromasia 1+, Sodium 140, Potassium 3.9, Chloride 107, Carbon Dioxide 25.0, Anion Gap 8, BUN 19, Creatinine 0.94, Estim Creat Clear Calc 99.66, Est GFR (MDRD) Non-Af 87, BUN/Creatinine Ratio 19.7, Glucose 106 H, Calcium 8.3 10/15/24 12:48: POC Glucose 118 H 10/15/24 17:43: POC Glucose 170 H 10/15/24 21:23: POC Glucose 138 H 10/15/24 22:59: Vancomycin Trough 24.2 H 10/16/24 04:45: WBC 4.1 L, RBC 3.50 L, Hgb 9.7 L, Hct 30.6 L, MCV 87.4, MCH 27.7, MCHC 31.7 L, RDW Std Deviation 52.1 H, RDW Coeff of Carlito 16.5 H, Plt Count 165, MPV 12.4 H, Immature Gran % (Auto) 2.000 H, Neut % (Auto) 47.3, Lymph % (Auto) 32.7, Stoddard % (Auto) 13.3 H, Eos % (Auto) 4.2, Baso % (Auto)0.5, AbsoluteNeuts (auto) 1.9 L, Absolute Lymphs (auto) 1.33, Nucleated RBC % 0, DifferentialComment SCANNED, Sodium 140, Potassium 4.0, Chloride 108, Carbon Dioxide 26.2, Anion Gap 5, BUN 20 H, Creatinine 0.98, Estim Creat Clear Calc 95.59, Est GFR (MDRD) Non-Af 84, BUN/Creatinine Ratio 20.0, Glucose 109 H, Calcium 8.3 10/16/24 04:55: POC Glucose 103 Micro: Microbiology 10/14/24 12:00 Wound - Leg, Right Gram Stain - Final 10/14/24 12:00 Wound - Leg, Right Wound Culture - Preliminary Staphylococcus aureus Coag Negative Staph 10/13/24 13:15 Blood Culture (Wb) - Anticubital Left Blood Culture - Preliminary No growth in 48 hours. 10/13/24 12:40 Blood Culture (Wb) - Anticubital Left Blood Culture - Preliminary No growth in 48 hours. Physical Exam Const alert and no apparent distress Constitutional Narrative: flat affect. no eye contact. declines to answer orientation questions. Assessment & Plan Assessment/Plan (1) Bacteremia: PLAN: MRSA positive on 10/10 (1 of 2). Negative on 10/13. 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 aureus and [employer]ATION. Recheck BCx. ID consulted. FLORENCE no vegatation. on vancomycin (2) Non-pressure chronic ulcer of 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: PLAN: debrided by podiatry on 10/15 PLAN: Plan Chronic conditions: * Left renal mass: follow up with GI * HTN: amlodipine * HLP: statin * DM2: glargine. add SSI. VTE prophylaxis: not indicated already on apixaban. Charges/Coding Visit Charges Inpatient E&M: 61284 Subs Hosp L1 10/17/24 7796 Cosigner Signature (if applicable): CC: ~ Signed [facility]04-08-2025 Consult note Author Bartolo Washington [facility] Note Date/Time October 17, 2024 12:2 2am [facility] Medical Records Department [address] [place] [address] Pharmacokinetic/Renal -Consult 10/17/24 002 MR#: [id number] Acct: [id number] Name: JADON ALVAREZ Rep #:[id number] 1 : 1955 69 From: Bartolo Bermudez od PCP: Kathleen Herzog MD Status:ADM IN Y Location: [place] [address] Consult Antibiotic Management Pharmacy has been consulted to manage selected antibiotic: Vancomycin Type of Intervention Type of Consult: Follow-up Labs Labs: Sodium 140 mmol/L (133-145) 10/16/24 04:45 Potassium 4.0 mmol/L (3.3-5.1) 10/16/24 04:45 Chloride 108 mmol/L (98-108) 10/16/24 04:45 Carbon Dioxide 26.2 mmol/L (21.0-32.0) 10/16/24 04:45 Anion Gap 5 (5-15) 10/16/24 04:45 BUN 20 mg/dL (4-19) H 10/16/24 04:45 Creatinine 0.98 mg/dL (0.70-1.20) 10/16/24 04:45 Est GFR (MDRD) Non-Af 84 (>60) 10/16/24 04:45 BUN/Creatinine Ratio 20.0 RATIO (10-20) 10/16/24 04:45 Glucose 109 mg/dL (70-99) H 10/16/24 04:45 Vancomycin Trough 24.2 ug/mL (5.0-15.0) H 10/15/24 22:59 Random Vancomycin 10.3 ug/mL (0.0-15.0) 10/16/24 23:07 Microbiology Microbiology: Microbiology 10/14/24 12:00 Wound - Leg, Right Gram Stain - Final 10/14/24 12:00 Wound - Leg, Right Wound Culture - Final Meth. resistant Staph. aureus Coag Negative Staph 10/13/24 13:15 Blood Culture (Wb) - Anticubital Left Blood Culture - Preliminary No growth in 48 hours. 10/13/24 12:40 Blood Culture (Wb) - Anticubital Left Blood Culture - Preliminary No growth in 48 hours. Goal Trough Goal Trough: 15-20 mcg/mL Pharmacy Plan for Drug Dosing Pharmacy Plan for Drug Dosing: Pharmacy Service will continue to monitor and adjust dosing as required. RANDOM LEVEL 10.3 @ 31 HOURS. START 1GM Q12H AND DRAW TROUGH PRIOR TO 4TH DOSE Follow-Up Labs Follow-Up Labs: Trough: Vancomycin Date/Time Labs Ordered Labs to be done on [date and time ordered]: 10/18 @ 1200 10/17/24 002 <Electronically signed by Bartolo smith> Date _ Bartolo Washington Cosigner Signature (if applicable): Date CC: ~ Signed [facility] Work Phone: [phone] Consult note [facility] Medical Records Department [address] [place] [address] Pharmacokinetic/Renal -Consult 10/17/2420 MR#: [id number] Acct: [id number] Name: JADON ALVAREZ Rep #:[id number] 1 : 1955 69 From: Bartolo Bermudez od PCP: Kathleen Herzog MD Status:ADM IN Location: [place] [id number] Consult Antibiotic Management Pharmacy has been consulted to manage selected antibiotic: Vancomycin Type of Intervention Type of Consult: Follow-up Labs Labs: Sodium 140 mmol/L (133-145) 10/16/24 04:45 Potassium 4.0 mmol/L (3.3-5.1) 10/16/24 04:45 Chloride 108 mmol/L (98-108) 10/16/24 04:45 Carbon Dioxide 26.2 mmol/L (21.0-32.0) 10/16/24 04:45 Anion Gap 5 (5-15) 10/16/24 04:45 BUN 20 mg/dL (4-19) H 10/16/24 04:45 Creatinine 0.98 mg/dL (0.70-1.20) 10/16/24 04:45 Est GFR (MDRD) Non-Af 84 (>60) 10/16/24 04:45 BUN/Creatinine Ratio 20.0 RATIO (10-20) 10/16/24 04:45 Glucose 109 mg/dL (70-99) H 10/16/24 04:45 Vancomycin Trough 24.2 ug/mL (5.0-15.0) H 10/15/24 22:59 Random Vancomycin 10.3 ug/mL (0.0-15.0) 10/16/24 23:07 Microbiology Microbiology: Microbiology 10/14/24 12:00 Wound - Leg, Right Gram Stain - Final 10/14/24 12:00 Wound - Leg, Right Wound Culture - Final Meth. resistant Staph. aureus Coag Negative Staph 10/13/24 13:15 Blood Culture (Wb) - Anticubital Left Blood Culture - Preliminary No growth in 48 hours. 10/13/24 12:40 Blood Culture (Wb) - Anticubital Left Blood Culture - Preliminary No growth in 48 hours. Goal Trough Goal Trough: 15-20 mcg/mL Pharmacy Plan for Drug Dosing Pharmacy Plan for Drug Dosing: Pharmacy Service will continue to monitor and adjust dosing as required. RANDOM LEVEL 10.3 @ 31 HOURS. START 1GM Q12H AND DRAW TROUGH PRIOR TO 4TH DOSE Follow-Up Labs Follow-Up Labs: Trough: Vancomycin Date/Time Labs Ordered Labs to be done on [date and time ordered]: 10/18 @ 1200 10/17/24 0022 lood> Date _ Bartolo Shay Signature (if applicable): Date CC: ~ Signed [facility]04-07-2025 Consult note Author Channing Barnard [facility] Note Date/Time October 16, 2024 2:57 pm [facility] Medical Records Department [address] [place] [address] Consultation - Infectious Dx 10/16/24 1452 MR#: [id number] Acct: [id number] Name: JADON ALVAREZ Rep #:[id number] : 1955 69 From: Channing garcia MD PCP: Kathleen Herzog MD Status:ADM IN Location: [place] [id number] Assessment & Plan Assessment/Plan (1) Bacteremia: PLAN: MRSA and proteus bacteremia. Concern for endocarditis given murmur and splinter hemorrhage on L index finger. Echo and repeat bcx pending. On vanc, added ceftriaxone. VALENTIN improved, fever improved. Wound cx with staph aureus and CoNS. Has been refusing food, pills, and lab draws. Emphasized to him thatthis infection can kill him if we do not treat. Will follow, thank you, d/w nursing and Dr. Gates. (2) Cellulitis of right lower limb: (3) UTI (urinary tract infection): (4) Sepsis: HPI Consult Data Date of Consult: 10/16/24 HPI Narrative Reason for Consultation: MRSA bacteremia HPI Narrative: JADON ALVAREZ, is a 69 M with h/o IDDM, ECF resident, admitted 10/10 for uti. Ucx with proteus, sent out on cefpodoxime. Called back due to (+) bcx on 10/13. Admitted on iv vanc. Here has been refusing meds, food, and lab draws. Denies pain anywhere. No fever. Wants to just go back to facility. Full ROS performed and neg except as noted above. [facility] Medical History MRSA (methicillin resistant staph aureus) culture positive Lives in alf Wears dentures Depression Anxiety Walker as ambulation aid Ambulates with cane Headache Shortness of breath on exertion Cardiology follow-up encounter History of renal disease Insulin dependent diabetes mellitus Pressure ulcer Abscess Indwelling urethral catheter present Acute painful diabetic polyneuropathy Cancer Former smoker CPAP (continuous positive airway pressure) dependence On home oxygen therapy Pulmonary embolism COPD (chronic obstructive pulmonary disease) Myocardial infarct DVT (deep venous thrombosis) Anemia Ulcer with necrosis of muscle Lymphedema of left lower extremity Lymphedema of right lower extremity Edema of left lower leg Edema of right lower leg Left leg swelling Right leg swelling Chronic venous insufficiency Non-pressure ulcer of right lower extremity with necrosis of muscle BPH (benign prostatic hyperplasia) Atrial fibrillation Blood loss anemia Hypertension Hiatal hernia Diverticulosis Debility Morbid obesity with BMI of 40.0-44.9, adult Impaired mobility SOB (shortness of breath) Heart murmur Heart failure 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 2 diabetes mellitus Aortic valve disease Renal mass, left History of DVT (deep vein thrombosis) Valvular heart disease Atrial fibrillation/flutter Chronic acquired lymphedema Chronic anemia Venous insufficiency (chronic) (peripheral) Ulcer of left lower extremity with fat layer exposed Superficial thrombosis of left lower extremity Peripheral vascular disease of lower extremity with ulceration Sleep apnea Morbid obesity DM2 (diabetes mellitus, type 2) Benign essential HTN Home Medications ?Medication ?Instructions ?Recorded ?Last Taken ?Type aspirin 81 mg tablet,delayed 81 mg PO DAILY AFIB 03/17 Unknown History release amlodipine 5 mg tablet 5 mg PO DAILY AFIB 10/28/23 Unknown History apixaban 5 mg tablet (Eliquis) 5 mg PO BID AFIB Unknown History atorvastatin 20 mg tablet 20 mg PO QHS HYPERLIPIDEMIA 10/28/23 10/13/24 History melatonin 3 mg tablet 6 mg PO QHS INSOMNIA 4 Unknown History tamsulosin 0.4 mg capsule 0.4 mg PO QHS PROSTATIC HYPE RPLASIA 12/22/23 Unknown History acetaminophen 325 mg tablet 650 mg PO Q4H PRN pain Unknown History (Tylenol) cyanocobalamin (vitamin B-12) 500 mcg PO DAILY VITAMIN 06/01/24 Unknown History 1,000 mcg capsule insulin glargine 100 unit/mL (3 23 unit subcut QHS KOBI BETIC 06/01/24 Unknown History mL) subcutaneous pen (Lantus Solostar U-100 Insulin) donepezil 5 mg tablet 5 mg PO QHS MEMORY 08/16/24 Unknown History gabapentin 100 mg capsule 200 mg PO TID NEUROPATHY 12/03 Unknown History insulin lispro 100 unit/mL See Protocol subcut TID KOBI BETIC 08/16/24 Unknown History subcutaneous pen (Humalog KwikPen (U-100) Insulin) lurasidone 40 mg tablet 40 mg PO QHS MOOD 08/16/24 U nknown History potassium chloride 10 mEq 10 meq PO BID POTASSIUM 02/0 12/03 Unknown History capsule,extended release torsemide 20 mg tablet 20 mg PO BID HEART 08/16/24 Unknown History budesonide-formoterol HFA 160 1 puff inhalation DAILY COPD 09/16/24 Unknown History mcg-4.5 mcg/actuation aerosol inhaler (Symbicort) lactulose 20 gram/30 mL oral 30 ml PO DAILY CONSTIPATI ON 09/16/24 Unknown History solution trazodone 100 mg tablet 100 mg PO QHS insomnia 09/16 Unknown History cefpodoxime 100 mg tablet 100 mg PO BID ANTIBOTIC #20 tabs 10/12/24 Unknown Rx Allergy/AdvReac Type Severity Reaction Status Date / Time ibuprofen (From Nuprin) Allergy Unknown Verified 10/13/24 11:49 Family History Mother Diabetes Father Cirrhosis of liver Alcoholism Surgical History History of incision and drainage History of embolic filter insertion History of right inguinal hernia repair H/O colectomy History of repair of inguinal hernia History of bladder surgery History of tonsillectomy and adenoidectomy History of right inguinal hernia repair S/P AVR (aortic valve replacement) Social History housing: alf Smoking Status: Former smoker how long ago did patient quit smoking: Quit ~ 20 yrs prior, smoked age 15 untilquit ~ 2 ppd. alcohol intake: never substance use type: does not use Physical Exam Const alert and no apparent distress General Appearance: cooperative HEENT normocephalic and head/scalp atraumatic Eyes PERRL and EOMs intact bilaterally Neck supple and No nodes Resp normal air movement and clear to auscultation bilaterally Cardio regular rate and regular rhythm Heart Sounds: murmur GI soft to palpation, non-tender and non-distended Extremity General Extremity: edema Skin Skin Narrative: Splinter hemorrhage L index finger. Reviewed wound photo RLE Neuro CN's II-XII intact bilaterally Lab / Micro Data Attestation: I reviewed the patient's lab results. 10/16/24 04:45 10/16/24 04:45 Labs: Laboratory Results - last 24 hr 10/15/24 17:43: POC Glucose 170 H 10/15/24 21:23: POC Glucose 138 H 10/15/24 22:59: Vancomycin Trough 24.2 H 10/16/24 04:45: WBC 4.1 L, RBC 3.50 L, Hgb 9.7 L, Hct 30.6 L, MCV 87.4, MCH 27.7, MCHC 31.7 L, RDW Std Deviation 52.1 H, RDW Coeff of Carlito 16.5 H, Plt Count 165, MPV 12.4 H, Immature Gran % (Auto) 2.000 H, Neut % (Auto) 47.3, Lymph % (Auto) 32.7, Stoddard % (Auto) 13.3 H, Eos % (Auto) 4.2, Baso % (Auto) 0.5, AbsoluteNeuts (auto) 1.9 L, Absolute Lymphs (auto) 1.33, Nucleated RBC % 0, DifferentialComment SCANNED, Sodium 140, Potassium 4.0, Chloride 108, Carbon Dioxide 26.2, Anion Gap 5, BUN 20 H, Creatinine 0.98, Estim Creat Clear Calc 95.59, Est GFR (MDRD) Non-Af 84, BUN/Creatinine Ratio 20.0, Glucose 109 H, Calcium 8.3 10/16/24 04:55: POC Glucose 103 10/16/24 14:09: POC Glucose 93 Micro: Microbiology 10/14/24 12:00 Wound - Leg, Right Gram Stain - Final 10/14/24 12:00 Wound - Leg, Right Wound Culture - Final Meth. resistant Staph. aureus Coag Negative Staph 10/13/24 13:15 Blood Culture (Wb) - Anticubital Left Blood Culture - Preliminary No growth in 48 hours. 10/13/24 12:40 Blood Culture (Wb) - Anticubital Left Blood Culture - Preliminary No growth in 48 hours. 10/16/24 6417 <Electronically signed by Channing Barnard MD> Cosigner Signature (if applicable): CC: Kathleen Herzog MD~ Signed [facility] Work Phone: [phone]) 168-702604-07-2025 Discharge summary Author Shayna Martinez [facility] Note Date/Time October 16, 2024 2:03 pm [facility] Medical Records Department [address] [place] [address] Emergency Department Summary 10/13/24 MR#: [id number] Acct: [id number] Name: JADON ALVAREZ Rep #:[id number] : 1955 69 From: Shayna Otero PCP: Kathleen Herzog MD Status:ADM IN Location: [place] [address] HPI History of Present Illness Chief Complaint: General Illness Informant: patient, EMS and SNF Narrative Narrative: 69-year-old male presenting to the emergency room. Patient is from [facility] facility. For the first 5 minutes of the history and physical I repeatedly asked the patient how he was feeling and if he knows why he is here. He looks at me huffs and then does not speak. He then tells me that he does not know why he is here but he knows that he does not want to be here. He states that he ate a little bit of breakfast this morning and then he was told he had to come back to the hospital. I see in the computer that he was admitted and discharged from the hospital. Hewas admitted for sepsis due to urinary tract infection that grew Proteus. He had a left wrist blood culture that grew MRSA. His left hand blood cultures have not grown anything. He does have a history of MRSA from the right leg wound back in July 26, 2024. I see on the chart he is currently taking cefpodoxime for the urinary tract infection. No report of outpatient fever. I do see that he has a history of a bioprosthetic aortic valve. Cardiology visit it was reported he had a heart murmur at that time. [facility] Medical History MRSA (methicillin resistant staph aureus) culture positive Lives in alf Wears dentures Depression Anxiety Walker as ambulation aid Ambulates with cane Headache Shortness of breath on exertion Cardiology follow-up encounter History of renal disease Insulin dependent diabetes mellitus Pressure ulcer Abscess Indwelling urethral catheter present Acute painful diabetic polyneuropathy Cancer Former smoker CPAP (continuous positive airway pressure) dependence On home oxygen therapy Pulmonary embolism COPD (chronic obstructive pulmonary disease) Myocardial infarct DVT (deep venous thrombosis) Anemia Ulcer with necrosis of muscle Lymphedema of left lower extremity Lymphedema of right lower extremity Edema of left lower leg Edema of right lower leg Left leg swelling Right leg swelling Chronic venous insufficiency Non-pressure ulcer of right lower extremity with necrosis of muscle BPH (benign prostatic hyperplasia) Atrial fibrillation Blood loss anemia Hypertension Hiatal hernia Diverticulosis Debility Morbid obesity with BMI of 40.0-44.9, adult Impaired mobility SOB (shortness of breath) Heart murmur Heart failure 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 2 diabetes mellitus Aortic valve disease Renal mass, left History of DVT (deep vein thrombosis) Valvular heart disease Atrial fibrillation/flutter Chronic acquired lymphedema Chronic anemia Venous insufficiency (chronic) (peripheral) Ulcer of left lower extremity with fat layer exposed Superficial thrombosis of left lower extremity Peripheral vascular disease of lower extremity with ulceration Sleep apnea Morbid obesity DM2 (diabetes mellitus, type 2) Benign essential HTN Home Medications ?Medication ?Instructions ?Recorded ?Last Taken ?Type aspirin 81 mg tablet,delayed 81 mg PO DAILY AFIB 03/17 Unknown History release amlodipine 5 mg tablet 5 mg PO DAILY AFIB 10/28/23 Unknown History apixaban 5 mg tablet (Eliquis) 5 mg PO BID AFIB Unknown History atorvastatin 20 mg tablet 20 mg PO QHS HYPERLIPIDEMIA 10/28/23 Unknown History melatonin 3 mg tablet 6 mg PO QHS INSOMNIA 4 Unknown History tamsulosin 0.4 mg capsule 0.4 mg PO QHS PROSTATIC HYPE RPLASIA 12/22/23 Unknown History acetaminophen 325 mg tablet 650 mg PO Q4H PRN pain Unknown History (Tylenol) cyanocobalamin (vitamin B-12) 500 mcg PO DAILY 4 Unknown History 1,000 mcg capsule insulin glargine 100 unit/mL (3 23 unit subcut QHS Unknown History mL) subcutaneous pen (Lantus Solostar U-100 Insulin) donepezil 5 mg tablet 5 mg PO QHS MEMORY 08/16/24 Unknown History gabapentin 100 mg capsule 200 mg PO TID NEUROPATHY 12/03 Unknown History insulin lispro 100 unit/mL See Protocol subcut TID 12/03 Unknown History subcutaneous pen (Humalog KwikPen (U-100) Insulin) lurasidone 40 mg tablet 40 mg PO QHS MOOD 08/16/24 U nknown History potassium chloride 10 mEq 10 meq PO BID 08/16/24 Unkno wn History capsule,extended release torsemide 20 mg tablet 20 mg PO BID HEART 08/16/24 Unknown History budesonide-formoterol HFA 160 1 puff inhalation DAILY COPD 09/16/24 Unknown History mcg-4.5 mcg/actuation aerosol inhaler (Symbicort) lactulose 20 gram/30 mL oral 30 ml PO DAILY CONSTIPATI ON 09/16/24 Unknown History solution trazodone 100 mg tablet 100 mg PO QHS insomnia 09/16 Unknown History cefpodoxime 100 mg tablet 100 mg PO BID #20 tabs 10/12 Unknown Rx Allergy/AdvReac Type Severity Reaction Status Date / Time ibuprofen (From Nuprin) Allergy Unknown Verified 10/13/24 11:49 Family History Mother Diabetes Father Cirrhosis of liver Alcoholism Surgical History History of incision and drainage History of embolic filter insertion History of right inguinal hernia repair H/O colectomy History of repair of inguinal hernia History of bladder surgery History of tonsillectomy and adenoidectomy History of right inguinal hernia repair S/P AVR (aortic valve replacement) Social History housing: alf Smoking Status: Former smoker how long ago did patient quit smoking: Quit ~ 20 yrs prior, smoked age 15 untilquit ~ 2 ppd. alcohol intake: never substance use type: does not use ROS ROS ED Constitutional Constitutional ED: Denies chills, fever(s) or weight loss Eyes Eyes: Denies change in vision or diplopia ENT ENT ED: Denies ear pain, rhinorrhea or sore throat Cardiovascular Cardiovascular: Denies chest pain, orthopnea, palpitations or racing heartbeat Respiratory/Chest Respiratory/Chest: Denies cough, dyspnea or orthopnea Gastrointestinal Gastrointestinal: Denies abdominal pain, diarrhea, nausea or vomiting Genitourinary Genitourinary ED: Denies dysuria, hematuria or urinary frequency Musculoskeletal Musculoskeletal: Denies arthralgias or myalgias Integumentary Denies abscess or rash Neurologic Neurologic: Denies headache(s) or weakness Psychiatric Psychiatric: Denies anxiety, depression, suicidal ideation or suicidal thoughts Endocrine Endocrinology: Denies polydipsia, polyphagia or polyuria Allergic/Immunologic Allergic/Immunologic ED: Denies mouth swelling, tongue swelling or urticaria EXAM Physical Exam Const Vital Signs: 10/13/24 11:49 10/13/24 11:52 10/13/24 11:52 Temperature 97.9 F 98.7 F Temperature Source Oral Oral Pulse Rate 58 L 60 Respiratory Rate 18 18 Respiratory Effort Normal Respiratory Pattern Normal Blood Pressure 171/69 H 171/78 H Blood Pressure Mean 103 109 Pulse Ox 98 97 Oxygen Delivery Method Room Air Room Air 10/13/24 12:52 10/13/24 13:42 Temperature 98.7 F Temperature Source Oral Pulse Rate 55 L 57 L Respiratory Rate 18 16 Respiratory Effort Respiratory Pattern Blood Pressure 136/71 H Blood Pressure Mean 92 Pulse Ox 98 Oxygen Delivery Method Room Air Positive well nourished and well developed General Appearance ED: well developed HEENT Reports normocephalic, head/scalp atraumatic and moist mucous membranes Eyes PERRL and EOMs intact bilaterally Neck no lymphadenopathy, supple and no JVD Resp normal respiratory effort and clear to auscultation bilaterally Cardio regular rate and regular rhythm Rate: other Other Details: There is a systolic heart murmur. GI normal to inspection, nondistended, normoactive bowel sounds and non-tender Palpation: soft Narrative: Indwelling Martines catheter Back/Spine no CVA tenderness and normal ROM Extremity Extremity Narrative: Chronic wound to the right lower leg General Extremety ED: Yes edema General Extremity: edema bilateral lower extremity Details: moderate Neuro oriented x3 and CN's II-XII intact bilaterally Sensorium / Orientation: alert Motor Exam: strength 5/5 throughout Psych Psych Narrative: Agitated and angry Skin no rashes or lesions noted MDM MDM MDM Narrative Medical decision making narrative: Differential diagnosis includes sepsis blood culture contaminant/skin contaminant bacteremia pancytopenia organ dysfunction Basic blood work shows pancytopenia which is chronic white count of 4 hemoglobinof 10.7 platelet count of 80 INR is 1.3 creatinine 0.93 with a BUN of 26. Lactic acid is normal at 1 glucose 122 normal LFTs. 2 sets of blood cultures were obtained. I spoke with the hospitalist service and they would like the patient admitted and would like him to get a dose of vancomycin here in the department. History & Record Review Discussion w/independent historian: Patient Lab Data Attestation: I reviewed the patient's lab results. Labs: Laboratory Results - last 24 hr 10/13/24 12:40 WBC 4.0 L RBC 3.95 L Hgb 10.7 L Hct 34.3 L MCV 86.8 MCH 27.1 MCHC 31.2 L RDW Std Deviation 53.5 H RDW Coeff of Carlito 16.7 H Plt Count 80 L Immature Gran % (Auto) 1.500 H Neut % (Auto) 55.3 Lymph % (Auto) 17.7 L Stoddard % (Auto) 22.0 H Eos % (Auto) 2.5 Baso % (Auto) 1.0 Absolute Neuts (auto) 2.2 Absolute Lymphs (auto) 0.70 L Nucleated RBC % 0 PT 16.0 H INR 1.3 APTT 33.8 Sodium 138 Potassium 4.3 Chloride 107 Carbon Dioxide 23.3 Anion Gap 9 BUN 26 H Creatinine 0.93 Estim Creat Clear Calc 102.20 Est GFR (MDRD) Non-Af 88 BUN/Creatinine Ratio 28.2 H Glucose 122 H Lactic Acid < 1.0 Calcium 8.8 Total Bilirubin 0.44 AST 19 ALT 16 Alkaline Phosphatase 70 Total Protein 6.2 Albumin 3.0 L Globulin 3.2 Albumin/Globulin Ratio 0.9 Management Discussion w/another healthcare provider: Hospitalist (Dr Garcias) Discharge Plan Dx/Rx/DC Orders Clinical Impression: Blood bacterial culture positive, Pancytopenia, Non-pressure chronic ulcer of other part of right lower leg with fat layer exposed Disposition Disposition: Acute Care [facility] What to do if you have Problems For any increased pain, shortness of breath, bleeding, nausea or vomiting, chestpain, or any unexpected problems, contact your Primary Care Provider. Call [facility] ([phone]) or report to the closest Emergency Room. Call 911 if necessary. 10/16/24 1403 <Electronically signed by Shayna Martinez DO> Cosigner Signature (if applicable): CC: Kathleen Herzog MD ~ Signed [facility] Work Phone: [phone] 376-971804-07-2025 Consult note [facility] Medical Records Department [address] [place] [address] Consultation - Infectious Dx 10/16/24 1452 MR#: [id number] Acct: [id number] Name: JADON ALVAREZ Rep #:[id number] : 1955 69 From: Channing garcia MD PCP: Kathleen Herzog MD Status:ADM IN Location: ND3 [id number] Assessment & Plan Assessment/Plan (1) Bacteremia: PLAN: MRSA and proteus bacteremia. Concern for endocarditis given murmur and splinter hemorrhage onL index finger. Echo and repeat bcx pending. On vanc, added ceftriaxone. VALENTIN improved, fever improved. Wound cx with staph aureus and CoNS. Has been refusing food, pills, and lab draws. Emphasized tohim thatthis infection can kill him if we do not treat. Will follow, thank you, d/w nursing and Dr. Gates. (2) Cellulitis of right lower limb: (3) UTI (urinary tract infection): (4) Sepsis: HPI Consult Data Date of Consult: 10/16/24 HPI Narrative Reason for Consultation: MRSA bacteremia HPI Narrative: JADON ALVAREZ, is a 69 M with h/o IDDM, ECF resident, admitted 10/10 for uti. Ucx with proteus, sent out on cefpodoxime. Called back due to (+) bcx on 10/13. Admitted on iv vanc. Here has been refusingmeds, food, and lab draws. Denies pain anywhere. No fever. Wants to just go back to facility. Full ROS performed and neg except as noted above. [facility], [facility] Medical History MRSA (methicillin resistant staph aureus) culture positive Lives in alf Wears dentures Depression Anxiety Walker as ambulation aid Ambulates with cane Headache Shortness of breath on exertion Cardiology follow-up encounter History of renal disease Insulin dependent diabetes mellitus Pressure ulcer Abscess Indwelling urethral catheter present Acute painful diabetic polyneuropathy Cancer Former smoker CPAP (continuous positive airway pressure) dependence On home oxygen therapy Pulmonary embolism COPD (chronic obstructive pulmonary disease) Myocardial infarct DVT (deep venous thrombosis) Anemia Ulcer with necrosis of muscle Lymphedema of left lower extremity Lymphedema of right lower extremity Edema of left lower leg Edema of right lower leg Left leg swelling Right leg swelling Chronic venous insufficiency Non-pressure ulcer of right lower extremity with necrosis of muscle BPH (benign prostatic hyperplasia) Atrial fibrillation Blood loss anemia Hypertension Hiatal hernia Diverticulosis Debility Morbid obesity with BMI of 40.0-44.9, adult Impaired mobility SOB (shortness of breath) Heart murmur Heart failure 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 2 diabetes mellitus Aortic valve disease Renal mass, left History of DVT (deep vein thrombosis) Valvular heart disease Atrial fibrillation/flutter Chronic acquired lymphedema Chronic anemia Venous insufficiency (chronic) (peripheral) Ulcer of left lower extremity with fat layer exposed Superficial thrombosis of left lower extremity Peripheral vascular disease of lower extremity with ulceration Sleep apnea Morbid obesity DM2 (diabetes mellitus, type 2) Benign essential HTN Home Medications ?Medication ?Instructions ?Recorded ?Last Taken ?Type aspirin 81 mg tablet,delayed 81 mg PO DAILY AFIB 03/17 Unknown History release amlodipine 5 mg tablet 5 mg PO DAILY AFIB 10/28/23 Unknown History apixaban 5 mg tablet (Eliquis) 5 mg PO BID AFIB Unknown History atorvastatin 20 mg tablet 20 mg PO QHS HYPERLIPIDEMIA 10/28/23 10/13/24 History melatonin 3 mg tablet 6 mg PO QHS INSOMNIA 4 Unknown History tamsulosin 0.4 mg capsule 0.4 mg PO QHS PROSTATIC HYPE RPLASIA 12/22/23 Unknown History acetaminophen 325 mg tablet 650 mg PO Q4H PRN pain Unknown History (Tylenol) cyanocobalamin (vitamin B-12) 500 mcg PO DAILY VITAMIN 06/01/24 Unknown History 1,000 mcg capsule insulin glargine 100 unit/mL (3 23 unit subcut QHS KOBI BETIC 06/01/24 Unknown History mL) subcutaneous pen (Lantus Solostar U-100 Insulin) donepezil 5 mg tablet 5 mg PO QHS MEMORY 08/16/24 Unknown History gabapentin 100 mg capsule 200 mg PO TID NEUROPATHY 12/03 Unknown History insulin lispro 100 unit/mL See Protocol subcut TID KOBI BETIC 08/16/24 Unknown History subcutaneous pen (Humalog KwikPen (U-100) Insulin) lurasidone 40 mg tablet 40 mg PO QHS MOOD 08/16/24 U nknown History potassium chloride 10 mEq 10 meq PO BID POTASSIUM 12/03 Unknown History capsule,extended release torsemide 20 mg tablet 20 mg PO BID HEART 08/16/24 Unknown History budesonide-formoterol HFA 160 1 puff inhalation DAILY COPD 09/16/24 Unknown History mcg-4.5 mcg/actuation aerosol inhaler (Symbicort) lactulose 20 gram/30 mL oral 30 ml PO DAILY CONSTIPATI ON 09/16/24 Unknown History solution trazodone 100 mg tablet 100 mg PO QHS insomnia 09/16 Unknown History cefpodoxime 100 mg tablet 100 mg PO BID ANTIBOTIC #20 tabs 10/12/24 Unknown Rx Allergy/AdvReac Type Severity Reaction Status Date / Time ibuprofen (From Nuprin) Allergy Unknown Verified 10/13/24 11:49 Family History Mother Diabetes Father Cirrhosis of liver Alcoholism Surgical History History of incision and drainage History of embolic filter insertion History of right inguinal hernia repair H/O colectomy History of repair of inguinal hernia History of bladder surgery History of tonsillectomy and adenoidectomy History of right inguinal hernia repair S/P AVR (aortic valve replacement) Social History housing: alf Smoking Status: Former smoker how long ago did patient quit smoking: Quit ~ 20 yrs prior, smoked age 15 untilquit ~ 2 ppd. alcohol intake: never substance use type: does not use Physical Exam Const alert and no apparent distress General Appearance: cooperative HEENT normocephalic and head/scalp atraumatic Eyes PERRL and EOMs intact bilaterally Neck supple and No nodes Resp normal air movement and clear to auscultation bilaterally Cardio regular rate and regular rhythm Heart Sounds: murmur GI soft to palpation, non-tender and non-distended Extremity General Extremity: edema Skin Skin Narrative: Splinter hemorrhage L index finger. Reviewed wound photo RLE Neuro CN's II-XII intact bilaterally Lab / Micro Data Attestation: I reviewed the patient's lab results. 10/16/24 04:45 10/16/24 04:45 Labs: Laboratory Results - last 24 hr 10/15/24 17:43: POC Glucose 170 H 10/15/24 21:23: POC Glucose 138 H 10/15/24 22:59: Vancomycin Trough 24.2 H 10/16/24 04:45: WBC 4.1 L, RBC 3.50 L, Hgb 9.7 L, Hct 30.6 L, MCV 87.4, MCH 27.7, MCHC 31.7 L, RDW Std Deviation 52.1 H, RDW Coeff of Carlito 16.5 H, Plt Count 165, MPV 12.4 H, Immature Gran % (Auto) 2.000 H, Neut % (Auto) 47.3, Lymph % (Auto) 32.7, Stoddard % (Auto) 13.3 H, Eos % (Auto) 4.2, Baso % (Auto)0.5, AbsoluteNeuts (auto) 1.9 L, Absolute Lymphs (auto) 1.33, Nucleated RBC % 0, DifferentialComment SCANNED, Sodium 140, Potassium 4.0, Chloride 108, Carbon Dioxide 26.2, Anion Gap 5, BUN 20 H, Creatinine 0.98, Estim Creat Clear Calc 95.59, Est GFR (MDRD) Non-Af 84, BUN/Creatinine Ratio 20.0, Glucose 109 H, Calcium 8.3 10/16/24 04:55: POC Glucose 103 10/16/24 14:09: POC Glucose 93 Micro: Microbiology 10/14/24 12:00 Wound - Leg, Right Gram Stain - Final 10/14/24 12:00 Wound - Leg, Right Wound Culture - Final Meth. resistant Staph. aureus Coag Negative Staph 10/13/24 13:15 Blood Culture (Wb) - Anticubital Left Blood Culture - Preliminary No growth in 48 hours. 10/13/24 12:40 Blood Culture (Wb) - Anticubital Left Blood Culture - Preliminary No growth in 48 hours. 10/16/24 1457 Cosigner Signature (if applicable): CC: Kathleen Herzog MD~ Signed [facility]04-07-2025 Discharge summary [facility] Medical Records Department [address] [place] [address] Emergency Department Summary 10/13/24 MR#: [id number] Acct: [id number] Name: ALE ALVAREZINGRID Aquino Rep #:[id number] : 1955 69 From: Shayna Otero PCP: Kathleen Herzog MD Status:ADM IN Location: MS3 [id number] HPI History of Present Illness Chief Complaint: General Illness Informant: patient, EMS and SNF Narrative Narrative: 69-year-old male presenting to the emergency room. Patient is from [facility] facility. For the first 5 minutes of the history and physical I repeatedly asked the patient how he was feeling and if he knows why he is here. He looks at me huffs and then does not speak. He then tells me that he does not know why he is here but he knows that he does not want to be here. He states that he ate a little bit of breakfast this morning and then he was told he had to come back to the hospital. I see in the computer that he was admitted and discharged from the hospital. Hewas admitted for sepsis due to urinary tract infection that grew Proteus. He had a left wrist blood culture that grew MRSA. His left hand blood cultures have not grown anything. He does have a history of MRSA from the right leg wound back in July 26, 2024. I see on the chart he is currently taking cefpodoxime for the urinary tract infection. No report of outpatient fever. I do see that he has a history of a bioprosthetic aortic valve. Cardiology visit it was reported hehad a heart murmur at that time. [facility] Medical History MRSA (methicillin resistant staph aureus) culture positive Lives in alf Wears dentures Depression Anxiety Walker as ambulation aid Ambulates with cane Headache Shortness of breath on exertion Cardiology follow-up encounter History of renal disease Insulin dependent diabetes mellitus Pressure ulcer Abscess Indwelling urethral catheter present Acute painful diabetic polyneuropathy Cancer Former smoker CPAP (continuous positive airway pressure) dependence On home oxygen therapy Pulmonary embolism COPD (chronic obstructive pulmonary disease) Myocardial infarct DVT (deep venous thrombosis) Anemia Ulcer with necrosis of muscle Lymphedema of left lower extremity Lymphedema of right lower extremity Edema of left lower leg Edema of right lower leg Left leg swelling Right leg swelling Chronic venous insufficiency Non-pressure ulcer of right lower extremity with necrosis of muscle BPH (benign prostatic hyperplasia) Atrial fibrillation Blood loss anemia Hypertension Hiatal hernia Diverticulosis Debility Morbid obesity with BMI of 40.0-44.9, adult Impaired mobility SOB (shortness of breath) Heart murmur Heart failure 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 2 diabetes mellitus Aortic valve disease Renal mass, left History of DVT (deep vein thrombosis) Valvular heart disease Atrial fibrillation/flutter Chronic acquired lymphedema Chronic anemia Venous insufficiency (chronic) (peripheral) Ulcer of left lower extremity with fat layer exposed Superficial thrombosis of left lower extremity Peripheral vascular disease of lower extremity with ulceration Sleep apnea Morbid obesity DM2 (diabetes mellitus, type 2) Benign essential HTN Home Medications ?Medication ?Instructions ?Recorded ?Last Taken ?Type aspirin 81 mg tablet,delayed 81 mg PO DAILY AFIB 03/17 Unknown History release amlodipine 5 mg tablet 5 mg PO DAILY AFIB 10/28/23 Unknown History apixaban 5 mg tablet (Eliquis) 5 mg PO BID AFIB Unknown History atorvastatin 20 mg tablet 20 mg PO QHS HYPERLIPIDEMIA 10/28/23 Unknown History melatonin 3 mg tablet 6 mg PO QHS INSOMNIA 4 Unknown History tamsulosin 0.4 mg capsule 0.4 mg PO QHS PROSTATIC HYPE RPLASIA 12/22/23 Unknown History acetaminophen 325 mg tablet 650 mg PO Q4H PRN pain Unknown History (Tylenol) cyanocobalamin (vitamin B-12) 500 mcg PO DAILY 4 Unknown History 1,000 mcg capsule insulin glargine 100 unit/mL (3 23 unit subcut QHS Unknown History mL) subcutaneous pen (Lantus Solostar U-100 Insulin) donepezil 5 mg tablet 5 mg PO QHS MEMORY 08/16/24 Unknown History gabapentin 100 mg capsule 200 mg PO TID NEUROPATHY 12/03 Unknown History insulin lispro 100 unit/mL See Protocol subcut TID 12/03 Unknown History subcutaneous pen (Humalog KwikPen (U-100) Insulin) lurasidone 40 mg tablet 40 mg PO QHS MOOD 08/16/24 U nknown History potassium chloride 10 mEq 10 meq PO BID 08/16/24 Unkno wn History capsule,extended release torsemide 20 mg tablet 20 mg PO BID HEART 08/16/24 Unknown History budesonide-formoterol HFA 160 1 puff inhalation DAILY COPD 09/16/24 Unknown History mcg-4.5 mcg/actuation aerosol inhaler (Symbicort) lactulose 20 gram/30 mL oral 30 ml PO DAILY CONSTIPATI ON 09/16/24 Unknown History solution trazodone 100 mg tablet 100 mg PO QHS insomnia 09/16 Unknown History cefpodoxime 100 mg tablet 100 mg PO BID #20 tabs 10/12 Unknown Rx Allergy/AdvReac Type Severity Reaction Status Date / Time ibuprofen (From Nuprin) Allergy Unknown Verified 10/13/24 11:49 Family History Mother Diabetes Father Cirrhosis of liver Alcoholism Surgical History History of incision and drainage History of embolic filter insertion History of right inguinal hernia repair H/O colectomy History of repair of inguinal hernia History of bladder surgery History of tonsillectomy and adenoidectomy History of right inguinal hernia repair S/P AVR (aortic valve replacement) Social History housing: alf Smoking Status: Former smoker how long ago did patient quit smoking: Quit ~ 20 yrs prior, smoked age 15 untilquit ~ 2 ppd. alcohol intake: never substance use type: does not use ROS ROS ED Constitutional Constitutional ED: Denies chills, fever(s) or weight loss Eyes Eyes: Denies change in vision or diplopia ENT ENT ED: Denies ear pain, rhinorrhea or sore throat Cardiovascular Cardiovascular: Denies chest pain, orthopnea, palpitations or racing heartbeat Respiratory/Chest Respiratory/Chest: Denies cough, dyspnea or orthopnea Gastrointestinal Gastrointestinal: Denies abdominal pain, diarrhea, nausea or vomiting Genitourinary Genitourinary ED: Denies dysuria, hematuria or urinary frequency Musculoskeletal Musculoskeletal: Denies arthralgias or myalgias Integumentary Denies abscess or rash Neurologic Neurologic: Denies headache(s) or weakness Psychiatric Psychiatric: Denies anxiety, depression, suicidal ideation or suicidal thoughts Endocrine Endocrinology: Denies polydipsia, polyphagia or polyuria Allergic/Immunologic Allergic/Immunologic ED: Denies mouth swelling, tongue swelling or urticaria EXAM Physical Exam Const Vital Signs: 10/13/24 11:49 10/13/24 11:52 10/13/24 11:52 Temperature 97.9 F 98.7 F Temperature Source Oral Oral Pulse Rate 58 L 60 Respiratory Rate 18 18 Respiratory Effort Normal Respiratory Pattern Normal Blood Pressure 171/69 H 171/78 H Blood Pressure Mean 103 109 Pulse Ox 98 97 Oxygen Delivery Method Room Air Room Air 10/13/24 12:52 10/13/24 13:42 Temperature 98.7 F Temperature Source Oral Pulse Rate 55 L 57 L Respiratory Rate 18 16 Respiratory Effort Respiratory Pattern Blood Pressure 136/71 H Blood Pressure Mean 92 Pulse Ox 98 Oxygen Delivery Method Room Air Positive well nourished and well developed General Appearance ED: well developed HEENT Reports normocephalic, head/scalp atraumatic and moist mucous membranes Eyes PERRL and EOMs intact bilaterally Neck no lymphadenopathy, supple and no JVD Resp normal respiratory effort and clear to auscultation bilaterally Cardio regular rate and regular rhythm Rate: other Other Details: There is a systolic heart murmur. GI normal to inspection, nondistended, normoactive bowel sounds and non-tender Palpation: soft Narrative: Indwelling Martines catheter Back/Spine no CVA tenderness and normal ROM Extremity Extremity Narrative: Chronic wound to the right lower leg General Extremety ED: Yes edema General Extremity: edema bilateral lower extremity Details: moderate Neuro oriented x3 and CN's II-XII intact bilaterally Sensorium / Orientation: alert Motor Exam: strength 5/5 throughout Psych Psych Narrative: Agitated and angry Skin no rashes or lesions noted MDM MDM MDM Narrative Medical decision making narrative: Differential diagnosis includes sepsis blood culture contaminant/skin contaminant bacteremia pancytopenia organ dysfunction Basic blood work shows pancytopenia which is chronic white count of 4 hemoglobinof 10.7 platelet count of 80 INR is 1.3 creatinine 0.93 with a BUN of 26. Lactic acid is normal at 1 glucose 122 normalLFTs. 2 sets of blood cultures were obtained. I spoke with the hospitalist service and they would like the patient admitted and would like him to get a dose of vancomycin here in the department. History & Record Review Discussion w/independent historian: Patient Lab Data Attestation: I reviewed the patient's lab results. Labs: Laboratory Results - last 24 hr 10/13/24 12:40 WBC 4.0 L RBC 3.95 L Hgb 10.7 L Hct 34.3 L MCV 86.8 MCH 27.1 MCHC 31.2 L RDW Std Deviation 53.5 H RDW Coeff of Carlito 16.7 H Plt Count 80 L Immature Gran % (Auto) 1.500 H Neut % (Auto) 55.3 Lymph % (Auto) 17.7 L Stoddard % (Auto) 22.0 H Eos % (Auto) 2.5 Baso % (Auto) 1.0 Absolute Neuts (auto) 2.2 Absolute Lymphs (auto) 0.70 L Nucleated RBC % 0 PT 16.0 H INR 1.3 APTT 33.8 Sodium 138 Potassium 4.3 Chloride 107 Carbon Dioxide 23.3 Anion Gap 9 BUN 26 H Creatinine 0.93 Estim Creat Clear Calc 102.20 Est GFR (MDRD) Non-Af 88 BUN/Creatinine Ratio 28.2 H Glucose 122 H Lactic Acid < 1.0 Calcium 8.8 Total Bilirubin 0.44 AST 19 ALT 16 Alkaline Phosphatase 70 Total Protein 6.2 Albumin 3.0 L Globulin 3.2 Albumin/Globulin Ratio 0.9 Management Discussion w/another healthcare provider: Hospitalist (Dr Garcias) Discharge Plan Dx/Rx/DC Orders Clinical Impression: Blood bacterial culture positive, Pancytopenia, Non-pressure chronic ulcer of other part of right lower leg with fat layer exposed Disposition Disposition: Acute Care Hospital [facility] What to do if you have Problems For any increased pain, shortness of breath, bleeding, nausea or vomiting, chestpain, or any unexpected problems, contact your Primary Care Provider. Call [facility] ([phone]) or report tothe closest Emergency Room. Call 911 if necessary. 10/16/24 1403 Cosigner Signature (if applicable): CC: Kathleen Herzog MD ~ Signed [facility]04-07-2025 Progress note Author Shayna Montoya [facility] Note Date/Time October 16, 2024 10:3 1am [facility] Medical Records Department [address] [place] [address] Progress Note 10/16/24 1028 MR#: [id number] Acct: [id number] Name: JADON ALVAREZ Rep #:[id number] 2 : 1955 69 From: Shayna Montoya DPM PCP: Kathleen Herzog MD Status:ADM IN [place] [facility] [id number] Subjective Subjective No changes overnight Objective Data Objective Data Vital Signs: Vital Signs Temp Pulse Resp BP Pulse Ox O2 Del Method 98.6 F 55 L 18 132/59 H 96 Room Air 10/16/24 08:15 10/16/24 08:15 10/16/24 08:15 10/16/24 08:15 10/16/24 08:15 10/16/24 08:15 Oxygen Delivery Method Room Air Weight: 134.9 kg Body Mass Index (BMI) 44.0 Intake & Output: Intake and Output for Last 24 Hours 10/14/24 10/15/24 10/16/24 23:59 23:59 23:59 Intake Total 770 / 770 1625 / 1625 Output Total 3750 / 3750 3050 / 3050 1400 / 1400 Balance -2980 / -2980 -1425 / -1425 -1400 / -1400 Lab / Micro Data 10/16/24 04:45 10/16/24 04:45 Labs: Laboratory Results - last 24 hr 10/15/24 12:48: POC Glucose 118 H 10/15/24 17:43: POC Glucose 170 H 10/15/24 21:23: POC Glucose 138 H 10/15/24 22:59: Vancomycin Trough 24.2 H 10/16/24 04:45: WBC 4.1 L, RBC 3.50 L, Hgb 9.7 L, Hct 30.6 L, MCV 87.4, MCH 27.7, MCHC 31.7 L, RDW Std Deviation 52.1 H, RDW Coeff of Carlito 16.5 H, Plt Count 165, MPV 12.4 H, Immature Gran % (Auto) 2.000 H, Neut % (Auto) 47.3, Lymph % (Auto) 32.7, Stoddard % (Auto) 13.3 H, Eos % (Auto) 4.2, Baso % (Auto) 0.5, AbsoluteNeuts (auto) 1.9 L, Absolute Lymphs (auto) 1.33, Nucleated RBC % 0, DifferentialComment SCANNED, Sodium 140, Potassium 4.0, Chloride 108, Carbon Dioxide 26.2, Anion Gap 5, BUN 20 H, Creatinine 0.98, Estim Creat Clear Calc 95.59, Est GFR (MDRD) Non-Af 84, BUN/Creatinine Ratio 20.0, Glucose 109 H, Calcium 8.3 04/07/25 04:55: POC Glucose 103 Micro: Microbiology 10/14/24 12:00 Wound - Leg, Right Gram Stain - Final 10/14/24 12:00 Wound - Leg, Right Wound Culture - Preliminary Staphylococcus aureus Coag Negative Staph 10/13/24 13:15 Blood Culture (Wb) - Anticubital Left Blood Culture - Preliminary No growth in 48 hours. 10/13/24 12:40 Blood Culture (Wb) - Anticubital Left Blood Culture - Preliminary No growth in 48 hours. Physical Exam Narrative Vascular: Dorsalis pedis posterior tibial pulses palpable bilateral feet. Atrophic skin changes noted to bilateral feet. Hemosiderin deposits noted to bilateral feet and lower extremities. +1 pitting edema noted to right lower extremity +2 pitting edema noted to left lower extremity around the MARIZA malleoli region. Diffuse varicosities noted bilaterally. Neurologic: Light touch protective sensation intact to bilateral feet. Dermatologic: Wound full-thickness down to including level of subcutaneous tissue noted to the right lateral extremity with a mixed fibro granular base predebridement measuring 11.0 x 2.7 x 0.3 cm, postdebridement the wound demonstrated clean 100% granular base with adequate bleeding measuring 11.2 x 3.0 x 0.3 cm. The wound failed to demonstrate any deep probing undermining. There is scant serosanguineous drainage noted. Periwound area is devoid of any erythema edema fluctuance warmth additional skin breakdown with concern for deepabscess or infection. Musculoskeletal: No sign DVT bilateral lower extremity. Muscular strength full to bilateral lower extremity compartments. Assessment & Plan Assessment/Plan (1) Blood bacterial culture positive: PLAN: Exam performed. Vital signs stable Right lower extremity ulceration wound culture growing staph aureus Urine culture + proteus mirabilis no growth new blood cultures from different site 10/16/24. Wound to right leg is stable and non-infected. wound care on board, podiatry to sign off. Patient to follow up at wound care center in outpatient setting follow up closely (2) Cellulitis of right lower limb: (3) Non-pressure chronic ulcer of 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: 10/16/24 1031 <Electronically signed by Shayna Montoya DPM> Shayna Montoya DPM Cosigner Signature (if applicable): CC: ~ Signed [facility] Work Phone: 1([phone]) 608-917504-07-2025 Progress note [facility] Medical Records Department [address] [place] [address] Progress Note 10/16/24 1028 MR#: [id number] Acct: [id number] Name: JADON ALVAREZ Rep #:[id number] 2 : 1955 69 From: Shayna Montoya DPM PCP: Kathleen Herzog MD Status:ADM IN Location: [place] [id number] Subjective Subjective No changes overnight Objective Data Objective Data Vital Signs: Vital Signs Temp Pulse Resp BP Pulse Ox O2 Del Method 98.6 F 55 L 18 132/59 H 96 Room Air 10/16/24 08:15 10/16/24 08:15 10/16/24 08:15 10/16/24 08:15 10/16/24 08:15 10/16/24 08:15 Oxygen Delivery Method Room Air Weight: 134.9 kg Body Mass Index (BMI) 44.0 Intake & Output: Intake and Output for Last 24 Hours 10/14/24 10/15/24 10/16/24 23:59 23:59 23:59 Intake Total 770 / 770 1625 / 1625 Output Total 3750 / 3750 3050 / 3050 1400 / 1400 Balance -2980 / -2980 -1425 / -1425 -1400 / -1400 Lab / Micro Data 10/16/24 04:45 10/16/24 04:45 Labs: Laboratory Results - last 24 hr 10/15/24 12:48: POC Glucose 118 H 10/15/24 17:43: POC Glucose 170 H 10/15/24 21:23: POC Glucose 138 H 10/15/24 22:59: Vancomycin Trough 24.2 H 10/16/24 04:45: WBC 4.1 L, RBC 3.50 L, Hgb 9.7 L, Hct 30.6 L, MCV 87.4, MCH 27.7, MCHC 31.7 L, RDW Std Deviation 52.1 H, RDW Coeff of Carlito 16.5 H, Plt Count 165, MPV 12.4 H, Immature Gran % (Auto) 2.000 H, Neut % (Auto) 47.3, Lymph % (Auto) 32.7, Stoddard % (Auto) 13.3 H, Eos % (Auto) 4.2, Baso % (Auto)0.5, AbsoluteNeuts (auto) 1.9 L, Absolute Lymphs (auto) 1.33, Nucleated RBC % 0, DifferentialComment SCANNED, Sodium 140, Potassium 4.0, Chloride 108, Carbon Dioxide 26.2, Anion Gap 5, BUN 20 H, Creatinine 0.98, Estim Creat Clear Calc 95.59, Est GFR (MDRD) Non-Af 84, BUN/Creatinine Ratio 20.0, Glucose 109 H, Calcium 8.3 10/16/24 04:55: POC Glucose 103 Micro: Microbiology 10/14/24 12:00 Wound - Leg, Right Gram Stain - Final 10/14/24 12:00 Wound - Leg, Right Wound Culture - Preliminary Staphylococcus aureus Coag Negative Staph 10/13/24 13:15 Blood Culture (Wb) - Anticubital Left Blood Culture - Preliminary No growth in 48 hours. 10/13/24 12:40 Blood Culture (Wb) - Anticubital Left Blood Culture - Preliminary No growth in 48 hours. Physical Exam Narrative Vascular: Dorsalis pedis posterior tibial pulses palpable bilateral feet. Atrophic skin changes noted to bilateral feet. Hemosiderin deposits noted to bilateral feet and lower extremities. +1 pittingedema noted to right lower extremity +2 pitting edema noted to left lower extremity around the PERImalleoli region. Diffuse varicosities noted bilaterally. Neurologic: Light touch protective sensation intact to bilateral feet. Dermatologic: Wound full-thickness down to including level of subcutaneous tissue noted to the right lateral extremity with a mixed fibro granular base predebridement measuring 11.0 x 2.7 x 0.3 cm, postdebridement the wound demonstrated clean 100% granular base with adequate bleeding measuring 11.2x 3.0 x 0.3 cm. The wound failed to demonstrate any deep probing undermining. There is scant serosanguineous drainage noted. Periwound area is devoid of any erythema edema fluctuance warmth additional skin breakdown with concern for deepabscess or infection. Musculoskeletal: No sign DVT bilateral lower extremity. Muscular strength full to bilateral lower extremity compartments. Assessment & Plan Assessment/Plan (1) Blood bacterial culture positive: PLAN: Exam performed. Vital signs stable Right lower extremity ulceration wound culture growing staph aureus Urine culture + proteus mirabilis no growth new blood cultures from different site 10/16/24. Wound to right leg is stable and non-infected. wound care on board, podiatry to sign off. Patient to follow up at wound care center in outpatient setting follow up closely (2) Cellulitis of right lower limb: (3) Non-pressure chronic ulcer of 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: 10/16/24 1031 Shayna Montoya DPM Cosigner Signature (if applicable): CC: ~ Signed [facility]04-07-2025 Progress note Author Sommer Rojas [facility] Note Date/Time October 16, 2024 6:47 am [facility] Medical Records Department [address] [place] [address] Progress Note - Hospitalist 10/16/2446 MR#: [id number] Acct: [id number] Name: DALEJADON A Rep #:[id number] 2 : 1955 69 From: Sommer Xie MD PCP: Kathleen Herzog MD Status:ADM IN Location: [place] [id number] Hospitalist Note Patient reporting to RN that is is fatigued, tired of dealing with his health care, refused medications this am, no specific plan, case management consulted and will be made aware. 10/16/24 0647 <Electronically signed by Sommer Xie MD> Cosigner Signature (if applicable): CC: ~ Signed [facility] Work Phone: 1(488) 823-644304-07-2025 Progress note [facility] Medical Records Department [address] [place] [address] Progress Note - Hospitalist 10/16/2446 MR#: [id number] Acct: [id number] Name: DALEJADON A Rep #:[id number] 2 : 1955 69 From: Sommer Xie MD PCP: Kathleen Herzog MD Status:ADM IN Location: [place] PP341-2 Hospitalist Note Patient reporting to RN that is is fatigued, tired of dealing with his health care, refused medications this am, no specific plan, case management consulted and will be made aware. 10/16/24 0647 Cosigner Signature (if applicable): CC: ~ Signed [facility]04-07-2025 Consult note Author Bartolo Washington [facility] Note Date/Time October 16, 2024 1:32 am [facility] Medical Records Department [address] [place] [address] Pharmacokinetic/Renal -Consult 10/16/24 013 MR#: [id number] Acct: [id number] Name: JADON ALVAREZ Rep #:[id number] : 1955 69 From: Bartolo Bermudez od PCP: Kathleen Herzog MD Status:ADM IN Y Location: [place] [address] Consult Antibiotic Management Pharmacy has been consulted to manage selected antibiotic: Vancomycin Type of Intervention Type of Consult: Follow-up Labs Labs: Sodium 140 mmol/L (133-145) 10/15/24 06:13 Potassium 3.9 mmol/L (3.3-5.1) 10/15/24 06:13 Chloride 107 mmol/L (98-108) 10/15/24 06:13 Carbon Dioxide 25.0 mmol/L (21.0-32.0) 10/15/24 06:13 Anion Gap 8 (5-15) 10/15/24 06:13 BUN 19 mg/dL (4-19) 10/15/24 06:13 Creatinine 0.94 mg/dL (0.70-1.20) 10/15/24 06:13 Est GFR (MDRD) Non-Af 87 (>60) 10/15/24 06:13 BUN/Creatinine Ratio 19.7 RATIO (10-20) 10/15/24 06:13 Glucose 106 mg/dL (70-99) H 10/15/24 06:13 Vancomycin Trough 24.2 ug/mL (5.0-15.0) H 10/15/24 22:59 Random Vancomycin 15.9 ug/mL (0.0-15.0) H 10/14/24 21:49 Microbiology Microbiology: Microbiology 10/14/24 12:00 Wound - Leg, Right Gram Stain - Final 10/14/24 12:00 Wound - Leg, Right Wound Culture - Preliminary Staphylococcus aureus Coag Negative Staph 10/13/24 13:15 Blood Culture (Wb) - Anticubital Left Blood Culture - Preliminary No growth in 48 hours. 10/13/24 12:40 Blood Culture (Wb) - Anticubital Left Blood Culture - Preliminary No growth in 48 hours. Goal Trough Goal Trough: 15-20 mcg/mL Pharmacy Plan for Drug Dosing Pharmacy Plan for Drug Dosing: Pharmacy Service will continue to monitor and adjust dosing as required. TROUGH 24.2 @ 7 HOURS. HOLD DOSE AND DRAW RANDOM LEVEL IN 12 HOURS Follow-Up Labs Follow-Up Labs: Trough: Vancomycin Date/Time Labs Ordered Labs to be done on [date and time ordered]: 10/16 @ 1100 10/16/24131 <Electronically signed by Bartolo smith> Date _ Bartolo Washington Cosigner Signature (if applicable): Date CC: ~ Signed [facility] Work Phone: 1(637) 508-304904-07-2025 Consult note [facility] Medical Records Department [address] [place] [address] Pharmacokinetic/Renal -Consult 10/16/24130 MR#: [id number] Acct: [id number] Name: JADON ALVAREZ Rep #:[id number] : 1955 69 From: Bartolo Bermudez od PCP: Kathleen Herzog MD Status:ADM IN Location: [place] [id number] Consult Antibiotic Management Pharmacy has been consulted to manage selected antibiotic: Vancomycin Type of Intervention Type of Consult: Follow-up Labs Labs: Sodium 140 mmol/L (133-145) 10/15/24 06:13 Potassium 3.9 mmol/L (3.3-5.1) 10/15/24 06:13 Chloride 107 mmol/L (98-108) 10/15/24 06:13 Carbon Dioxide 25.0 mmol/L (21.0-32.0) 10/15/24 06:13 Anion Gap 8 (5-15) 10/15/24 06:13 BUN 19 mg/dL (4-19) 10/15/24 06:13 Creatinine 0.94 mg/dL (0.70-1.20) 10/15/24 06:13 Est GFR (MDRD) Non-Af 87 (>60) 10/15/24 06:13 BUN/Creatinine Ratio 19.7 RATIO (10-20) 10/15/24 06:13 Glucose 106 mg/dL (70-99) H 10/15/24 06:13 Vancomycin Trough 24.2 ug/mL (5.0-15.0) H 10/15/24 22:59 Random Vancomycin 15.9 ug/mL (0.0-15.0) H 10/14/24 21:49 Microbiology Microbiology: Microbiology 10/14/24 12:00 Wound - Leg, Right Gram Stain - Final 10/14/24 12:00 Wound - Leg, Right Wound Culture - Preliminary Staphylococcus aureus Coag Negative Staph 10/13/24 13:15 Blood Culture (Wb) - Anticubital Left Blood Culture - Preliminary No growth in 48 hours. 10/13/24 12:40 Blood Culture (Wb) - Anticubital Left Blood Culture - Preliminary No growth in 48 hours. Goal Trough Goal Trough: 15-20 mcg/mL Pharmacy Plan for Drug Dosing Pharmacy Plan for Drug Dosing: Pharmacy Service will continue to monitor and adjust dosing as required. TROUGH 24.2 @ 7 HOURS. HOLD DOSE AND DRAW RANDOM LEVEL IN 12 HOURS Follow-Up Labs Follow-Up Labs: Trough: Vancomycin Date/Time Labs Ordered Labs to be done on [date and time ordered]: 10/16 @ 1100 10/16/24 0132 lood> Date _ Bartolo Shay Signature (if applicable): Date CC: ~ Signed [facility]04-06-2025 Progress note Author Colby May [facility] Note Date/Time October 15, 2024 12:4 3pm [facility] Medical Records Department [address] [place] [address] Progress Note - Hospitalist 10/14/24 0738 MR#: [id number] Acct: [id number] Name: JADON ALVAREZ Rep #:[id number] : 1955 69 From: Colby Iniguez PCP: Kathleen Herzog MD Status:ADM IN Location: [place] [address] Reason for Visit Reason for Visit: Diagnoses Bacteremia (10/13/24) Objective Data Objective Data Vital Signs: Vital Signs Temp Pulse Resp BP Pulse Ox O2 Del Method 98.8 F 63 16 139/74 H 94 Room Air 10/14/24 03:15 10/14/24 03:15 10/14/24 03:15 10/14/24 03:15 10/14/24 03:15 10/14/24 03:15 Oxygen Delivery Method Room Air Weight: 297 lb 6.457 oz Body Mass Index (BMI) 44.0 Intake & Output: Intake and Output for Last 24 Hours 10/12/24 10/13/24 10/14/24 23:59 23:59 23:59 Intake Total 1072.25 / 1072.25 530 / 530 Output Total 850 / 2050 1999 / 1999 Balance 222.25 / -977.75 -1470 / -1470 Lab / Micro Data 10/14/24 04:57 10/14/24 04:57 Labs: Laboratory Results - last 24 hr 10/13/24 12:40: WBC 4.0 L, RBC 3.95 L, Hgb 10.7 L, Hct 34.3 L, MCV 86.8, MCH 27.1, MCHC 31.2 L, RDW Std Deviation 53.5 H, RDW Coeff of Carlito 16.7 H, Plt Count 80 L, Immature Gran % (Auto) 1.500 H, Neut % (Auto) 55.3, Lymph % (Auto) 17.7 L,Stoddard % (Auto) 22.0 H, Eos % (Auto) 2.5, Baso % (Auto) 1.0, Absolute Neuts (auto)2.2, Absolute Lymphs (auto) 0.70 L, Nucleated RBC % 0, PT 16.0 H, INR 1.3, APTT 33.8, Sodium 138, Potassium 4.3, Chloride 107, Carbon Dioxide 23.3, Anion Gap 9, BUN 26 H, Creatinine 0.93, Estim Creat Clear Calc 102.20, Est GFR (MDRD) Non-Af 88, BUN/Creatinine Ratio 28.2 H, Glucose 122 H, Lactic Acid < 1.0, Calcium 8.8, Total Bilirubin 0.44, AST 19, ALT 16, Alkaline Phosphatase 70, Total Protein 6.2, Albumin 3.0 L, Globulin 3.2, Albumin/Globulin Ratio 0.9 10/13/24 21:12: POC Glucose 114 H 10/14/24 04:57: WBC 3.5 L, RBC 7.19 H, Hgb 19.7 H*, Hct 61.6 H, MCV 85.7, MCH 27.4, MCHC 32.0, RDW Std Deviation 52.6 H, RDW Coeff of Carlito 18.2 H, Plt Count 37L*, MPV TNP, Immature Gran % (Auto) 1.700 H, Neut % (Auto) 61.9, Lymph % (Auto) 15.6 L, Stoddard % (Auto) 15.1 H, Eos % (Auto) 4.3, Baso % (Auto) 1.4 H, Absolute Neuts (auto) 2.2, Absolute Lymphs (auto) 0.55 L, Nucleated RBC % 0.6, Sodium 139, Potassium 3.8, Chloride 108, Carbon Dioxide 21.8, Anion Gap 10, BUN21 H, Creatinine 0.92, Estim Creat Clear Calc 101.83, Est GFR (MDRD) Non-Af 90, BUN/Creatinine Ratio 22.5 H, Glucose 96, Calcium 8.3 10/14/24 06:19: POC Glucose 93 Physical Exam Narrative Seen and examined. Patient not forthcoming with the history of her prior heart to ask questions. Has chronic ulcer over right lateral leg follows wound center. Dressing removedand shows avalos yellow sticky stain on the dressing. No fever. Chronic sacral/bilateral buttock pain. No back surgery. Also complaining of mild rightlower abdominal pain Physical exam General: Alert, Oriented x3, Cooperative. Morbid obesity BMI 44.0 kg/m? HEENT: Atraumatic, PERRLA, EOMI, Normocephalic Oral: Deep pharyngeal structures could not be visualized. Neck: Supple, No JVD, Negative Carotid Bruits Chest wall/Lungs: Air entry diminished in bilateral lung bases. No crepitation/rhonchi Cardiovascular: Regular rate, Regular Rhythm, Normal S1, Normal S2, No M/G/R Abdomen: Bowel Sounds Present, Soft, mild tenderness in right lateral quadrant, Non-Distended : No dysuria. No renal angle tenderness. No suprapubic tenderness. Extremities: No edema, Capillary Refill Less than 3 Seconds Skin: No rashes, No breakdown Musculoskeletal: No Tenderness to Palpation of Joints or Extremities Neurological: Cranial nerves II-XII grossly intact, DTR 2+/4. No acute focal neurological deficit. Psych/Mental Status: Normal Affect, Appropriate. Assessment & Plan Assessment/Plan (1) Blood bacterial culture positive: PLAN: Plan 69-year-old man was discharged yesterday and found to have MRSA in the blood #MRSA bacteremia probably source of right lateral leg * was recently admitted on 10/10/2024 for sepsis due to UTI. Urine cultures grew Proteus, and he was discharged on cepodoxime. * blood cultures however came back positive for MRSA in 1/2 samples, so patient was asked to come back to the ED * start on IV vancomycin. Repeat blood cultures drawn in the ED. * consult ID. Echo is done but not report * Data Collection Interviewer consulted for right lateral leg which I believe may be the source for MRSA bacteremia ##Left renal mass * CT as above. This is similar to prior CT of the abdomen and pelvis from 09/16/2024. There is no urology notes documented in the EMR but patient says he is aware of this mass. It is not clear whether he has followed up with urology has had treatment for it. * Since this is not acute, he will benefit from follow-up with urology on outpatient basis. #Hypertension: on amlodipine. Hold torsemide due to VALENTIN. #Hyperlipidemia: on statin #Dementia: on donepezil. #Type 2 diabetes mellitus: on lantus 23 units qhs. ISS. Accuchecks ACHS. #BPH with obstructive symptoms * has chronic indwelling martines catheter as mentioned above * on flomax * DVT prophylaxis: SCDs. NO anticoagulation due to hematuria Code status: DNRCCA with intubation * Documentation from alf showed that patient was DNR CCA with intubation. Patient confirmed DNR CC and with intubation Charges/Coding Visit Charges Inpatient E&M: 17864 Subs Hosp L2 10/14/24 1331 <Electronically signed by Colby May MD> Cosigner Signature (if applicable): CC: ~ Signed ADDENDUM by Dr. Colby May MD on 10/15/24 at 1243 Addendum Correction: Heart exam: Systolic ejection murmur right second ICS, aortic stenosis 10/15/24 1243<Electronically signed by Colby May MD> Cosigner Signature (if applicable): cc: ~* Signed [facility] Work Phone: 1(896) 177-546704-06-2025 Progress note Author Colby May [facility] Note Date/Time October 15, 2024 12:4 2pm [facility] Medical Records Department [address] [place] [address] Progress Note - Hospitalist 10/15/24901 MR#: [id number] Acct: [id number] Name: JADON ALVAREZ Rep #:[id number] : 1955 69 From: Colby Iniguez PCP: Kathleen Herzog MD Status:ADM IN Location: [place] [address] Reason for Visit Reason for Visit: Diagnoses Bacteremia (10/13/24) Objective Data Objective Data Vital Signs: Vital Signs Temp Pulse Resp BP Pulse Ox O2 Del Method 97.8 F 58 L 18 134/72 H 98 Room Air 10/15/24 05:59 10/15/24 05:59 10/15/24 05:59 10/15/24 05:59 10/15/24 05:59 10/15/24 06:00 Oxygen Delivery Method Room Air Weight: 297 lb 6.457 oz Body Mass Index (BMI) 44.0 Intake & Output: Intake and Output for Last 24 Hours 10/13/24 10/14/24 10/15/24 23:59 23:59 23:59 Intake Total 1072.25 / 1072.25 770 / 770 275 / 275 Output Total 850 / 2050 3750 / 3750 1400 / 1400 Balance 222.25 / -977.75 -2980 / -2980 -1125 / -1125 Lab / Micro Data 10/15/24 06:13 10/15/24 06:13 Labs: Laboratory Results - last 24 hr 10/14/24 04:57: WBC 4.0 L, RBC 3.45 L, Hgb 9.5 L, Hct 29.8 L, MCV 86.4, MCHC 27.5 L D, RDW Std Deviation 52.2 H, RDW Coeff of Carlito 16.5 H, Plt Count 114 L, Immature Gran % (Auto) 2.700 H, Neut % (Auto) 55.2, Lymph % (Auto) 17.7 L, Stoddard %(Auto) 20.7 H, Eos % (Auto) 2.7, Baso % (Auto) 1.0, Absolute Neuts (auto) 2.2, Absolute Lymphs (auto) 0.71 L, Platelet Estimate SLT, Plt Morphology Comment LARGE 10/14/24 11:33: POC Glucose 126 H 10/14/24 13:35: Vancomycin Trough 22.3 H 10/14/24 21:49: Random Vancomycin 15.9 H 10/14/24 22:26: POC Glucose 150 H 10/15/24 06:02: POC Glucose 113 H 10/15/24 06:13: WBC 3.7 L, RBC 3.66 L, Hgb 10.1 L, Hct 31.7 L, MCV 86.6, MCH 27.6, MCHC 31.9 L D, RDW Std Deviation 51.3 H, RDW Coeff of Carlito 16.3 H, Plt Count 135 L, MPV 12.3 H, Immature Gran % (Auto) 4.000 H, Neut % (Auto) 51.1, Lymph % (Auto) 25.3, Stoddard % (Auto) 15.1 H, Eos % (Auto) 4.0, Baso % (Auto) 0.5, Absolute Neuts (auto) 1.9 L, Absolute Lymphs (auto) 0.94, Nucleated RBC % 0.5, Sodium 140, Potassium 3.9, Chloride 107, Carbon Dioxide 25.0, Anion Gap 8, BUN 19, Creatinine 0.94, Estim Creat Clear Calc 99.66, Est GFR (MDRD) Non-Af 87, BUN/Creatinine Ratio 19.7, Glucose 106 H, Calcium 8.3 Radiography Diagnostic Testing: Radiology Impression Echocardiogram 10/13/24 15:13 Interpretation Summary The estimated ejection fraction is 70 %. No evidence for diastolic dysfunction. Velocity across the bioprosthetic aortic valve appears to be increased suggestive of stenosis. Trivial aortic valve insufficiency. Ordering Physician: Monika Garcias Referring Physician: SAUL WANG Performed By: Maite Smith RCS Physical Exam Narrative Seen and examined. Patient not forthcoming with the history of her prior heart to ask questions. Has chronic ulcer over right lateral leg follows wound center. Dressing removedand shows avalos yellow sticky stain on the dressing. No fever. Chronic sacral/bilateral buttock pain. No back surgery. Also complaining of mild rightlower abdominal pain Physical exam General: Alert, Oriented x3, Cooperative. Morbid obesity BMI 44.0 kg/m? HEENT: Atraumatic, PERRLA, EOMI, Normocephalic Oral: Deep pharyngeal structures could not be visualized. Neck: Supple, No JVD, Negative Carotid Bruits Chest wall/Lungs: Air entry diminished in bilateral lung bases. No crepitation/rhonchi Cardiovascular: Regular rate, Regular Rhythm, Normal S1, Normal S2, systolic ejection murmur right second ICS Abdomen: Bowel Sounds Present, Soft, mild tenderness in right lateral quadrant, Non-Distended : No dysuria. No renal angle tenderness. No suprapubic tenderness. Extremities: No edema, Capillary Refill Less than 3 Seconds Skin: No rashes, No breakdown Musculoskeletal: No Tenderness to Palpation of Joints or Extremities Neurological: Cranial nerves II-XII grossly intact, DTR 2+/4. No acute focal neurological deficit. Psych/Mental Status: Normal Affect, Appropriate. Assessment & Plan Assessment/Plan (1) Blood bacterial culture positive: PLAN: Plan 69-year-old man was discharged yesterday and found to have MRSA in the blood #MRSA bacteremia probably source of right lateral leg * was recently admitted on 10/10/2024 for sepsis due to UTI. Urine cultures grew Proteus, and he was discharged on cepodoxime. * blood cultures however came back positive for MRSA in 1/2 samples, so patient was asked to come back to the ED * start on IV vancomycin. Repeat blood cultures drawn in the ED. * consult ID. Echo is done but not report * Data Collection Interviewer consulted for right lateral leg which I believe may be the source for MRSA bacteremia 10/15: Discussed with the scientific editor. Echo does not show any vegetation. EF 70%. 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 Continue IV antibiotic. Discussed with commercial correspondent Dr. Montoya and wounds showsgranulation tissue with some nonviable tissue of right lower leg ulcer which wasdebrided. ID consult tomorrow. ##Left renal mass * CT as above. This is similar to prior CT of the abdomen and pelvis from 09/16/2024. There is no urology notes documented in the EMR but patient says he is aware of this mass. It is not clear whether he has followed up with urology has had treatment for it. * Since this is not acute, he will benefit from follow-up with urology on outpatient basis. 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 On auscultation murmur is audible. No acute cardiac symptoms. #Hypertension: on amlodipine. Hold torsemide due to VALENTIN. #Hyperlipidemia: on statin #Dementia: on donepezil. #Type 2 diabetes mellitus: on lantus 23 units qhs. ISS. Accuchecks ACHS. #BPH with obstructive symptoms * has chronic indwelling martines catheter as mentioned above * on flomax * DVT prophylaxis: SCDs. NO anticoagulation due to hematuria Code status: DNRCCA with intubation * Documentation from alf showed that patient was DNR CCA with intubation. Patient confirmed DNR CC and with intubation Echocardiogram 10/13/24 15:13 Interpretation Summary The estimated ejection fraction is 70 %. No evidence for diastolic dysfunction. Velocity across the bioprosthetic aortic valve appears to be increased suggestive of stenosis. Trivial aortic valve insufficiency. Charges/Coding Visit Charges Inpatient E&M: 73037 Subs Hosp L2 10/15/24 1249 <Electronically signed by Colby May MD> Cosigner Signature (if applicable): CC: ~ Signed [facility] Work Phone: [phone] 410-996504-06-2025 Progress note [facility] Medical Records Department [address] [place] [address] Progress Note - Hospitalist 10/14/24 0738 MR#: [id number] Acct: [id number] Name: JADON ALVAREZ Rep #:[id number] : 1955 69 From: Colby Iniguez PCP: Kathleen Herzog MD Status:ADM IN [id number] Reason for Visit Reason for Visit: Diagnoses Bacteremia (10/13/24) Objective Data Objective Data Vital Signs: Vital Signs Temp Pulse Resp BP Pulse Ox O2 Del Method 98.8 F 63 16 139/74 H 94 Room Air 10/14/24 03:15 10/14/24 03:15 10/14/24 03:15 10/14/24 03:15 10/14/24 03:15 10/14/24 03:15 Oxygen Delivery Method Room Air Weight: 297 lb 6.457 oz Body Mass Index (BMI) 44.0 Intake & Output: Intake and Output for Last 24 Hours 10/12/24 10/13/24 10/14/24 23:59 23:59 23:59 Intake Total 1072.25 / 1072.25 530 / 530 Output Total / 2050 1999 Balance 222.25 / -977.75 -1470 / -1470 Lab / Micro Data 10/14/24 04:57 10/14/24 04:57 Labs: Laboratory Results - last 24 hr 10/13/24 12:40: WBC 4.0 L, RBC 3.95 L, Hgb 10.7 L, Hct 34.3 L, MCV 86.8, MCH 27.1, MCHC 31.2 L, RDWStd Deviation 53.5 H, RDW Coeff of Carlito 16.7 H, Plt Count 80 L, Immature Gran % (Auto) 1.500 H, Neut% (Auto) 55.3, Lymph % (Auto) 17.7 L,Stoddard % (Auto) 22.0 H, Eos % (Auto) 2.5, Baso % (Auto) 1.0, Absolute Neuts (auto)2.2, Absolute Lymphs (auto) 0.70 L, Nucleated RBC % 0, PT 16.0 H, INR 1.3, APTT 33.8, Sodium 138, Potassium 4.3, Chloride 107, Carbon Dioxide 23.3, Anion Gap 9, BUN 26 H, Creatinine 0.93, Estim Creat Clear Calc 102.20, Est GFR (MDRD) Non-Af 88, BUN/Creatinine Ratio 28.2 H, Glucose 122H, Lactic Acid < 1.0, Calcium 8.8, Total Bilirubin 0.44, AST 19, ALT 16, Alkaline Phosphatase 70, Total Protein 6.2, Albumin 3.0 L, Globulin 3.2, Albumin/Globulin Ratio 0.9 10/13/24 21:12: POC Glucose 114 H 10/14/24 04:57: WBC 3.5 L, RBC 7.19 H, Hgb 19.7 H*, Hct 61.6 H, MCV 85.7, MCH 27.4, MCHC 32.0, RDW Std Deviation 52.6 H, RDW Coeff of Carlito 18.2 H, Plt Count 37L*, MPV TNP, Immature Gran % (Auto) 1.700H, Neut % (Auto) 61.9, Lymph % (Auto) 15.6 L, Stoddard % (Auto) 15.1 H, Eos % (Auto) 4.3, Baso % (Auto)1.4 H, Absolute Neuts (auto) 2.2, Absolute Lymphs (auto) 0.55 L, Nucleated RBC % 0.6, Sodium 139, Potassium 3.8, Chloride 108, Carbon Dioxide 21.8, Anion Gap 10, BUN21 H, Creatinine 0.92, Estim Creat Clear Calc 101.83, Est GFR (MDRD) Non-Af 90, BUN/Creatinine Ratio 22.5 H, Glucose 96,Calcium 8.3 10/14/24 06:19: POC Glucose 93 Physical Exam Narrative Seen and examined. Patient not forthcoming with the history of her prior heart to ask questions. Has chronic ulcer over right lateral leg follows wound center. Dressing removedand shows avalos yellow sticky stain on the dressing. No fever. Chronic sacral/bilateral buttock pain. No back surgery. Also complaining of mild rightlower abdominal pain Physical exam General: Alert, Oriented x3, Cooperative. Morbid obesity BMI 44.0 kg/m? HEENT: Atraumatic, PERRLA, EOMI, Normocephalic Oral: Deep pharyngeal structures could not be visualized. Neck: Supple, No JVD, Negative Carotid Bruits Chest wall/Lungs: Air entry diminished in bilateral lung bases. No crepitation/rhonchi Cardiovascular: Regular rate, Regular Rhythm, Normal S1, Normal S2, No M/G/R Abdomen: Bowel Sounds Present, Soft, mild tenderness in right lateral quadrant, Non-Distended : No dysuria. No renal angle tenderness. No suprapubic tenderness. Extremities: No edema, Capillary Refill Less than 3 Seconds Skin: No rashes, No breakdown Musculoskeletal: No Tenderness to Palpation of Joints or Extremities Neurological: Cranial nerves II-XII grossly intact, DTR 2+/4. No acute focal neurological deficit. Psych/Mental Status: Normal Affect, Appropriate. Assessment & Plan Assessment/Plan (1) Blood bacterial culture positive: PLAN: Plan 69-year-old man was discharged yesterday and found to have MRSA in the blood #MRSA bacteremia probably source of right lateral leg * was recently admitted on 10/10/2024 for sepsis due to UTI. Urine cultures grew Proteus, and he was discharged on cepodoxime. * blood cultures however came back positive for MRSA in 1/2 samples, so patient was asked to come back to the ED * start on IV vancomycin. Repeat blood cultures drawn in the ED. * consult ID. Echo is done but not report * Data Collection Interviewer consulted for right lateral leg which I believe may be the source for MRSA bacteremia ##Left renal mass * CT as above. This is similar to prior CT of the abdomen and pelvis from 09/16/2024. There is no urology notes documented in the EMR but patient says he is aware of this mass. It is not clear whether he has followed up with urology has had treatment for it. * Since this is not acute, he will benefit from follow-up with urology on outpatient basis. #Hypertension: on amlodipine. Hold torsemide due to VALENTIN. #Hyperlipidemia: on statin #Dementia: on donepezil. #Type 2 diabetes mellitus: on lantus 23 units qhs. ISS. Accuchecks ACHS. #BPH with obstructive symptoms * has chronic indwelling martines catheter as mentioned above * on flomax * DVT prophylaxis: SCDs. NO anticoagulation due to hematuria Code status: DNRCCA with intubation * Documentation from alf showed that patient was DNR CCA with intubation. Patient confirmed DNR CC and with intubation Charges/Coding Visit Charges Inpatient E&M: 29356 Subs Hosp L2 10/14/24 1331 Cosigner Signature (if applicable): CC: ~ Signed ADDENDUM by Dr. Colby May MD on 10/15/24 at 1243 Addendum Correction: Heart exam: Systolic ejection murmur right second ICS, aortic stenosis 10/15/24 1243 Cosigner Signature (if applicable): cc: ~* Signed [facility]04-06-2025 Progress note [facility] Medical Records Department [address] [place] [address] Progress Note - Hospitalist 10/15/24 0902 MR#: [id number] Acct: [id number] Name: JADON ALVAREZ Rep #:[id number] : 1955 69 From: Colby Iniguez PCP: Kathleen Herzog MD Status:ADM IN Location: [place] [address]-1 Reason for Visit Reason for Visit: Diagnoses Bacteremia (10/13/24) Objective Data Objective Data Vital Signs: Vital Signs Temp Pulse Resp BP Pulse Ox O2 Del Method 97.8 F 58 L 18 134/72 H 98 Room Air 10/15/24 05:59 10/15/24 05:59 10/15/24 05:59 10/15/24 05:59 10/15/24 05:59 10/15/24 06:00 Oxygen Delivery Method Room Air Weight: 297 lb 6.457 oz Body Mass Index (BMI) 44.0 Intake & Output: Intake and Output for Last 24 Hours 10/13/24 10/14/24 10/15/24 23:59 23:59 23:59 Intake Total 1072.25 / 1072.25 770 / 770 275 / 275 Output Total 850 / 2050 3750 / 3750 1400 / 1400 Balance 222.25 / -977.75 -2980 / -2980 -1125 / -1125 Lab / Micro Data 10/15/24 06:13 10/15/24 06:13 Labs: Laboratory Results - last 24 hr 10/14/24 04:57: WBC 4.0 L, RBC 3.45 L, Hgb 9.5 L, Hct 29.8 L, MCV 86.4, MCHC 27.5 L D, RDW Std Deviation 52.2 H, RDW Coeff of Carlito 16.5 H, Plt Count 114 L, Immature Gran % (Auto) 2.700 H, Neut % (Auto) 55.2, Lymph % (Auto) 17.7 L, Stoddard %(Auto) 20.7 H, Eos % (Auto) 2.7, Baso % (Auto) 1.0, Absolute Neuts (auto) 2.2, Absolute Lymphs (auto) 0.71 L, Platelet Estimate SLT, Plt Morphology Comment LARGE 10/14/24 11:33: POC Glucose 126 H 10/14/24 13:35: Vancomycin Trough 22.3 H 10/14/24 21:49: Random Vancomycin 15.9 H 10/14/24 22:26: POC Glucose 150 H 10/15/24 06:02: POC Glucose 113 H 10/15/24 06:13: WBC 3.7 L, RBC 3.66 L, Hgb 10.1 L, Hct 31.7 L, MCV 86.6, MCH 27.6, MCHC 31.9 L D, RDW Std Deviation 51.3 H, RDW Coeff of Carlito 16.3 H, Plt Count 135 L, MPV 12.3 H, Immature Gran % (Auto) 4.000 H, Neut % (Auto) 51.1, Lymph % (Auto) 25.3, Stoddard % (Auto) 15.1 H, Eos % (Auto) 4.0, Baso % (Auto) 0.5, Absolute Neuts (auto) 1.9 L, Absolute Lymphs (auto) 0.94, Nucleated RBC % 0.5, Sodium 140, Potassium 3.9, Chloride 107, Carbon Dioxide 25.0, Anion Gap 8, BUN 19, Creatinine 0.94, Estim Creat Clear Calc 99.66, Est GFR (MDRD) Non-Af 87, BUN/Creatinine Ratio 19.7, Glucose 106 H, Calcium 8.3 Radiography Diagnostic Testing: Radiology Impression Echocardiogram 10/13/24 15:13 Interpretation Summary The estimated ejection fraction is 70 %. No evidence for diastolic dysfunction. Velocity across the bioprosthetic aortic valve appears to be increased suggestive of stenosis. Trivial aortic valve insufficiency. Ordering Physician: Monika Garcias Referring Physician: SAUL WANG Performed By: Maite Smtih RCS Physical Exam Narrative Seen and examined. Patient not forthcoming with the history of her prior heart to ask questions. Has chronic ulcer over right lateral leg follows wound center. Dressing removedand shows avalos yellow sticky stain on the dressing. No fever. Chronic sacral/bilateral buttock pain. No back surgery. Also complaining of mild rightlower abdominal pain Physical exam General: Alert, Oriented x3, Cooperative. Morbid obesity BMI 44.0 kg/m? HEENT: Atraumatic, PERRLA, EOMI, Normocephalic Oral: Deep pharyngeal structures could not be visualized. Neck: Supple, No JVD, Negative Carotid Bruits Chest wall/Lungs: Air entry diminished in bilateral lung bases. No crepitation/rhonchi Cardiovascular: Regular rate, Regular Rhythm, Normal S1, Normal S2, systolic ejection murmur right second ICS Abdomen: Bowel Sounds Present, Soft, mild tenderness in right lateral quadrant, Non-Distended : No dysuria. No renal angle tenderness. No suprapubic tenderness. Extremities: No edema, Capillary Refill Less than 3 Seconds Skin: No rashes, No breakdown Musculoskeletal: No Tenderness to Palpation of Joints or Extremities Neurological: Cranial nerves II-XII grossly intact, DTR 2+/4. No acute focal neurological deficit. Psych/Mental Status: Normal Affect, Appropriate. Assessment & Plan Assessment/Plan (1) Blood bacterial culture positive: PLAN: Plan 69-year-old man was discharged yesterday and found to have MRSA in the blood #MRSA bacteremia probably source of right lateral leg * was recently admitted on 10/10/2024 for sepsis due to UTI. Urine cultures grew Proteus, and he was discharged on cepodoxime. * blood cultures however came back positive for MRSA in 1/2 samples, so patient was asked to come back to the ED * start on IV vancomycin. Repeat blood cultures drawn in the ED. * consult ID. Echo is done but not report * Data Collection Interviewer consulted for right lateral leg which I believe may be the source for MRSA bacteremia 10/15: Discussed with the scientific editor. Echo does not show any vegetation. EF 70%. 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 Continue IV antibiotic. Discussed with commercial correspondent Dr. Montoya and wounds showsgranulation tissue with some nonviable tissue of right lower leg ulcer which wasdebrided. ID consult tomorrow. ##Left renal mass * CT as above. This is similar to prior CT of the abdomen and pelvis from 09/16/2024. There is no urology notes documented in the EMR but patient says he is aware of this mass. It is not clear whether he has followed up with urology has had treatment for it. * Since this is not acute, he will benefit from follow-up with urology on outpatient basis. 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 On auscultation murmur is audible. No acute cardiac symptoms. #Hypertension: on amlodipine. Hold torsemide due to VALENTIN. #Hyperlipidemia: on statin #Dementia: on donepezil. #Type 2 diabetes mellitus: on lantus 23 units qhs. ISS. Accuchecks ACHS. #BPH with obstructive symptoms * has chronic indwelling martines catheter as mentioned above * on flomax * DVT prophylaxis: SCDs. NO anticoagulation due to hematuria Code status: DNRCCA with intubation * Documentation from alf showed that patient was DNR CCA with intubation. Patient confirmed DNR CC and with intubation Echocardiogram 10/13/24 15:13 Interpretation Summary The estimated ejection fraction is 70 %. No evidence for diastolic dysfunction. Velocity across the bioprosthetic aortic valve appears to be increased suggestive of stenosis. Trivial aortic valve insufficiency. Charges/Coding Visit Charges Inpatient E&M: 84431 Subs Hosp L2 10/15/24 1242 Cosigner Signature (if applicable): CC: ~ Signed [facility]04-06-2025 Consult note Author Shayna Montoya [facility] Note Date/Time October 15, 2024 9:43 am [facility] Medical Records Department [address] [place] [address] Consultation 10/15/24 0936 MR#: [id number] Acct: [id number] Name: JADON ALVAREZ Rep #:[id number] : 1955 69 From: Shayna Montoya DPM PCP: Kathleen Herzog MD Status:ADM IN Location: [place] [id number] Assessment & Plan Assessment/Plan (1) Blood bacterial culture positive: PLAN: Exam performed. Vital signs stable Right lower extremity ulceration wound culture pending Repeat blood cultures pending Right lateral leg ulceration is stable does not appear acutely infected; however, it always a possibility that is pleural we will wait and culture. Consideration should be made for additional sources of potential bacteremia or consideration of possible contamination at time of taking blood cultures is only1 of 2 positive. Will await repeat blood cultures. Arterial studies ordered Venous studies ordered to rule out DVT as patient has diffuse swelling to left lower extremity. Patient etiologies venous insufficiency and is noted to be sitting up in bed which will increase dependent edema to bilateral lower extremities, recommend exercise elevation and compression for edema management Right lateral leg wound was excisionally debrided down to and including level ofsubcutaneous tissue of all nonviable tissue using a #15 blade without incident. Topical anesthesia used. Hemostasis obtained with light compression. Patient tolerated procedure well. Pre and postdebridement measurements documented in the objective section of the note. Wound was dressed with Betadine sterile gauze Kerlix and Brittany bandage to right lower extremity. Will plan for daily dressing changes consisting of silver alginate dry sterile dressing with Brittany bandages to bilateral lower extremity. Will reevaluate patient 10/16/2024 (2) Cellulitis of right lower limb: (3) Non-pressure chronic ulcer of 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: HPI Consult Data Date of Consult: 10/15/24 HPI Narrative HPI Narrative: JADON ALVAREZ, is a 69 M who presents with chronic ulceration to right lateralankle. Patient was noted to have some worsening systemic signs of infection blood cultures were taken and positive for MRSA. Patient has chronic nonhealingulceration to the right lateral leg which appears stable but could be source of bacteremia. Patient denies any fever chills nausea vomiting chest pain calf pain shortness of breath at this time. Patient has no acute pain right lower extremity. He does have diffuse lower extremity edema bilaterally. PFSH Medical History MRSA (methicillin resistant staph aureus) culture positive Lives in alf Wears dentures Depression Anxiety Walker as ambulation aid Ambulates with cane Headache Shortness of breath on exertion Cardiology follow-up encounter History of renal disease Insulin dependent diabetes mellitus Pressure ulcer Abscess Indwelling urethral catheter present Acute painful diabetic polyneuropathy Cancer Former smoker CPAP (continuous positive airway pressure) dependence On home oxygen therapy Pulmonary embolism COPD (chronic obstructive pulmonary disease) Myocardial infarct DVT (deep venous thrombosis) Anemia Ulcer with necrosis of muscle Lymphedema of left lower extremity Lymphedema of right lower extremity Edema of left lower leg Edema of right lower leg Left leg swelling Right leg swelling Chronic venous insufficiency Non-pressure ulcer of right lower extremity with necrosis of muscle BPH (benign prostatic hyperplasia) Atrial fibrillation Blood loss anemia Hypertension Hiatal hernia Diverticulosis Debility Morbid obesity with BMI of 40.0-44.9, adult Impaired mobility SOB (shortness of breath) Heart murmur Heart failure 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 2 diabetes mellitus Aortic valve disease Renal mass, left History of DVT (deep vein thrombosis) Valvular heart disease Atrial fibrillation/flutter Chronic acquired lymphedema Chronic anemia Venous insufficiency (chronic) (peripheral) Ulcer of left lower extremity with fat layer exposed Superficial thrombosis of left lower extremity Peripheral vascular disease of lower extremity with ulceration Sleep apnea Morbid obesity DM2 (diabetes mellitus, type 2) Benign essential HTN Home Medications ?Medication ?Instructions ?Recorded ?Last Taken ?Type aspirin 81 mg tablet,delayed 81 mg PO DAILY AFIB 03/17 Unknown History release amlodipine 5 mg tablet 5 mg PO DAILY AFIB 10/28/23 Unknown History apixaban 5 mg tablet (Eliquis) 5 mg PO BID AFIB Unknown History atorvastatin 20 mg tablet 20 mg PO QHS HYPERLIPIDEMIA 10/28/23 10/13/24 History melatonin 3 mg tablet 6 mg PO QHS INSOMNIA 4 Unknown History tamsulosin 0.4 mg capsule 0.4 mg PO QHS PROSTATIC HYPE RPLASIA 12/22/23 Unknown History acetaminophen 325 mg tablet 650 mg PO Q4H PRN pain Unknown History (Tylenol) cyanocobalamin (vitamin B-12) 500 mcg PO DAILY VITAMIN 06/01/24 Unknown History 1,000 mcg capsule insulin glargine 100 unit/mL (3 23 unit subcut QHS KOBI BETIC 06/01/24 Unknown History mL) subcutaneous pen (Lantus Solostar U-100 Insulin) donepezil 5 mg tablet 5 mg PO QHS MEMORY 08/16/24 Unknown History gabapentin 100 mg capsule 200 mg PO TID NEUROPATHY 12/03 Unknown History insulin lispro 100 unit/mL See Protocol subcut TID KOBI BETIC 08/16/24 Unknown History subcutaneous pen (Humalog KwikPen (U-100) Insulin) lurasidone 40 mg tablet 40 mg PO QHS MOOD 08/16/24 U nknown History potassium chloride 10 mEq 10 meq PO BID POTASSIUM 12/03 Unknown History capsule,extended release torsemide 20 mg tablet 20 mg PO BID HEART 08/16/24 Unknown History budesonide-formoterol HFA 160 1 puff inhalation DAILY COPD 09/16/24 Unknown History mcg-4.5 mcg/actuation aerosol inhaler (Symbicort) lactulose 20 gram/30 mL oral 30 ml PO DAILY CONSTIPATI ON 09/16/24 Unknown History solution trazodone 100 mg tablet 100 mg PO QHS insomnia 09/16 Unknown History cefpodoxime 100 mg tablet 100 mg PO BID ANTIBOTIC #20 tabs 10/12/24 Unknown Rx Allergy/AdvReac Type Severity Reaction Status Date / Time ibuprofen (From Nuprin) Allergy Unknown Verified 10/13/24 11:49 Family History Mother Diabetes Father Cirrhosis of liver Alcoholism Surgical History History of incision and drainage History of embolic filter insertion History of right inguinal hernia repair H/O colectomy History of repair of inguinal hernia History of bladder surgery History of tonsillectomy and adenoidectomy History of right inguinal hernia repair S/P AVR (aortic valve replacement) Social History housing: alf Smoking Status: Former smoker how long ago did patient quit smoking: Quit ~ 20 yrs prior, smoked age 15 untilquit ~ 2 ppd. alcohol intake: never substance use type: does not use Physical Exam Narrative Vascular: Dorsalis pedis posterior tibial pulses palpable bilateral feet. Atrophic skin changes noted to bilateral feet. Hemosiderin deposits noted to bilateral feet and lower extremities. +1 pitting edema noted to right lower extremity +2 pitting edema noted to left lower extremity around the MARIZA malleoli region. Diffuse varicosities noted bilaterally. Neurologic: Light touch protective sensation intact to bilateral feet. Dermatologic: Wound full-thickness down to including level of subcutaneous tissue noted to the right lateral extremity with a mixed fibro granular base predebridement measuring 11.0 x 2.7 x 0.3 cm, postdebridement the wound demonstrated clean 100% granular base with adequate bleeding measuring 11.2 x 3.0 x 0.3 cm. The wound failed to demonstrate any deep probing undermining. There is scant serosanguineous drainage noted. Periwound area is devoid of any erythema edema fluctuance warmth additional skin breakdown with concern for deepabscess or infection. Musculoskeletal: No sign DVT bilateral lower extremity. Muscular strength full to bilateral lower extremity compartments. Lab / Micro Data 10/15/24 06:13 10/15/24 06:13 Labs: Laboratory Results - last 24 hr 10/14/24 04:57: Platelet Estimate SLT, Plt Morphology Comment LARGE 10/14/24 11:33: POC Glucose 126 H 10/14/24 13:35: Vancomycin Trough 22.3 H 10/14/24 21:49: Random Vancomycin 15.9 H 10/14/24 22:26: POC Glucose 150 H 10/15/24 06:02: POC Glucose 113 H 10/15/24 06:13: WBC 3.7 L, RBC 3.66 L, Hgb 10.1 L, Hct 31.7 L, MCV 86.6, MCH 27.6, MCHC 31.9 L D, RDW Std Deviation 51.3 H, RDW Coeff of Carlito 16.3 H, Plt Count 135 L, MPV 12.3 H, Immature Gran % (Auto) 4.000 H, Neut % (Auto) 51.1, Lymph % (Auto) 25.3, Stoddard % (Auto) 15.1 H, Eos % (Auto) 4.0, Baso % (Auto) 0.5, Absolute Neuts (auto) 1.9 L, Absolute Lymphs (auto) 0.94, Nucleated RBC % 0.5, Platelet Estimate SLT DEC, Polychromasia 1+, Sodium 140, Potassium 3.9, [id number], Carbon Dioxide 25.0, Anion Gap 8, BUN 19, Creatinine 0.94, Estim Creat Clear Calc 99.66, Est GFR (MDRD) Non-Af 87, BUN/Creatinine Ratio 19.7, Glucose 106 H, Calcium 8.3 Imaging Radiology Impression Echocardiogram 10/13/24 15:13 Interpretation Summary The estimated ejection fraction is 70 %. No evidence for diastolic dysfunction. Velocity across the bioprosthetic aortic valve appears to be increased suggestive of stenosis. Trivial aortic valve insufficiency. Ordering Physician: Monika Garcias Referring Physician: SAUL WANG Performed By: Maite Smith RCS 10/15/24 0943 <Electronically signed by Shayna Montoya DPM> Cosigner Signature (if applicable): CC: Kathleen Herzog MD~ Signed [facility] Work Phone: [phone] 236-781304-06-2025 Consult note [facility] Medical Records Department [address] [place] [id number] Consultation 10/15/24 0936 MR#: [id number] Acct: [id number] Name: JADON ALVAREZ Rep #:[id number] : 1955 69 From: Shayna Montoya DPM PCP: Kathleen Herzog MD Status:ADM IN [id number] Assessment & Plan Assessment/Plan (1) Blood bacterial culture positive: PLAN: Exam performed. Vital signs stable Right lower extremity ulceration wound culture pending Repeat blood cultures pending Right lateral leg ulceration is stable does not appear acutely infected; however, it always a possibility that is pleural we will wait and culture. Consideration should be made for additional sources of potential bacteremia or consideration of possible contamination at time of taking blood cultures is only1 of 2 positive. Will await repeat bloodcultures. Arterial studies ordered Venous studies ordered to rule out DVT as patient has diffuse swelling to left lower extremity. Patient etiologies venous insufficiency and is noted to be sitting up in bed which will increase dependent edema to bilateral lower extremities, recommend exercise elevation and compression for edemamanagement Right lateral leg wound was excisionally debrided down to and including level ofsubcutaneous tissueof all nonviable tissue using a #15 blade without incident. Topical anesthesia used. Hemostasis obtained with light compression. Patient tolerated procedure well. Pre and postdebridement measurementsdocumented in the objective section of the note. Wound was dressed with Betadine sterile gauze Kerlix and Brittany bandage to right lower extremity. Will plan for daily dressing changes consisting of silver alginate dry sterile dressing with Brittany bandages to bilateral lower extremity. Will reevaluate patient 10/16/2024 (2) Cellulitis of right lower limb: (3) Non-pressure chronic ulcer of 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: HPI Consult Data Date of Consult: 10/15/24 HPI Narrative HPI Narrative: JADON ALVAREZ, is a 69 M who presents with chronic ulceration to right lateralankle. Patient was noted to have some worsening systemic signs of infection blood cultures were taken and positive for MRSA. Patient has chronic nonhealingulceration to the right lateral leg which appears stable but could be source of bacteremia. Patient denies any fever chills nausea vomiting chest pain calf pain shortness of breath at this time. Patient has no acute pain right lower extremity. He does have diffuselower extremity edema bilaterally. [facility]LY [facility] Medical History MRSA (methicillin resistant staph aureus) culture positive Lives in alf Wears dentures Depression Anxiety Walker as ambulation aid Ambulates with cane Headache Shortness of breath on exertion Cardiology follow-up encounter History of renal disease Insulin dependent diabetes mellitus Pressure ulcer Abscess Indwelling urethral catheter present Acute painful diabetic polyneuropathy Cancer Former smoker CPAP (continuous positive airway pressure) dependence On home oxygen therapy Pulmonary embolism COPD (chronic obstructive pulmonary disease) Myocardial infarct DVT (deep venous thrombosis) Anemia Ulcer with necrosis of muscle Lymphedema of left lower extremity Lymphedema of right lower extremity Edema of left lower leg Edema of right lower leg Left leg swelling Right leg swelling Chronic venous insufficiency Non-pressure ulcer of right lower extremity with necrosis of muscle BPH (benign prostatic hyperplasia) Atrial fibrillation Blood loss anemia Hypertension Hiatal hernia Diverticulosis Debility Morbid obesity with BMI of 40.0-44.9, adult Impaired mobility SOB (shortness of breath) Heart murmur Heart failure 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 2 diabetes mellitus Aortic valve disease Renal mass, left History of DVT (deep vein thrombosis) Valvular heart disease Atrial fibrillation/flutter Chronic acquired lymphedema Chronic anemia Venous insufficiency (chronic) (peripheral) Ulcer of left lower extremity with fat layer exposed Superficial thrombosis of left lower extremity Peripheral vascular disease of lower extremity with ulceration Sleep apnea Morbid obesity DM2 (diabetes mellitus, type 2) Benign essential HTN Home Medications ?Medication ?Instructions ?Recorded ?Last Taken ?Type aspirin 81 mg tablet,delayed 81 mg PO DAILY AFIB 03/17 Unknown History release amlodipine 5 mg tablet 5 mg PO DAILY AFIB 10/28/23 Unknown History apixaban 5 mg tablet (Eliquis) 5 mg PO BID AFIB Unknown History atorvastatin 20 mg tablet 20 mg PO QHS HYPERLIPIDEMIA 10/28/23 10/13/24 History melatonin 3 mg tablet 6 mg PO QHS INSOMNIA 4 Unknown History tamsulosin 0.4 mg capsule 0.4 mg PO QHS PROSTATIC HYPE RPLASIA 12/22/23 Unknown History acetaminophen 325 mg tablet 650 mg PO Q4H PRN pain Unknown History (Tylenol) cyanocobalamin (vitamin B-12) 500 mcg PO DAILY VITAMIN 06/01/24 Unknown History 1,000 mcg capsule insulin glargine 100 unit/mL (3 23 unit subcut QHS KOBI BETIC 06/01/24 Unknown History mL) subcutaneous pen (Lantus Solostar U-100 Insulin) donepezil 5 mg tablet 5 mg PO QHS MEMORY 08/16/24 Unknown History gabapentin 100 mg capsule 200 mg PO TID NEUROPATHY 12/03 Unknown History insulin lispro 100 unit/mL See Protocol subcut TID KOBI BETIC 08/16/24 Unknown History subcutaneous pen (Humalog KwikPen (U-100) Insulin) lurasidone 40 mg tablet 40 mg PO QHS MOOD 08/16/24 U nknown History potassium chloride 10 mEq 10 meq PO BID POTASSIUM 12/03 Unknown History capsule,extended release torsemide 20 mg tablet 20 mg PO BID HEART 08/16/24 Unknown History budesonide-formoterol HFA 160 1 puff inhalation DAILY COPD 09/16/24 Unknown History mcg-4.5 mcg/actuation aerosol inhaler (Symbicort) lactulose 20 gram/30 mL oral 30 ml PO DAILY CONSTIPATI ON 09/16/24 Unknown History solution trazodone 100 mg tablet 100 mg PO QHS insomnia 09/16 Unknown History cefpodoxime 100 mg tablet 100 mg PO BID ANTIBOTIC #20 tabs 10/12/24 Unknown Rx Allergy/AdvReac Type Severity Reaction Status Date / Time ibuprofen (From Nuprin) Allergy Unknown Verified 10/13/24 11:49 Family History Mother Diabetes Father Cirrhosis of liver Alcoholism Surgical History History of incision and drainage History of embolic filter insertion History of right inguinal hernia repair H/O colectomy History of repair of inguinal hernia History of bladder surgery History of tonsillectomy and adenoidectomy History of right inguinal hernia repair S/P AVR (aortic valve replacement) Social History housing: alf Smoking Status: Former smoker how long ago did patient quit smoking: Quit ~ 20 yrs prior, smoked age 15 untilquit ~ 2 ppd. alcohol intake: never substance use type: does not use Physical Exam Narrative Vascular: Dorsalis pedis posterior tibial pulses palpable bilateral feet. Atrophic skin changes noted to bilateral feet. Hemosiderin deposits noted to bilateral feet and lower extremities. +1 pittingedema noted to right lower extremity +2 pitting edema noted to left lower extremity around the PERImalleoli region. Diffuse varicosities noted bilaterally. Neurologic: Light touch protective sensation intact to bilateral feet. Dermatologic: Wound full-thickness down to including level of subcutaneous tissue noted to the right lateral extremity with a mixed fibro granular base predebridement measuring 11.0 x 2.7 x 0.3 cm, postdebridement the wound demonstrated clean 100% granular base with adequate bleeding measuring 11.2x 3.0 x 0.3 cm. The wound failed to demonstrate any deep probing undermining. There is scant serosanguineous drainage noted. Periwound area is devoid of any erythema edema fluctuance warmth additional skin breakdown with concern for deepabscess or infection. Musculoskeletal: No sign DVT bilateral lower extremity. Muscular strength full to bilateral lower extremity compartments. Lab / Micro Data 10/15/24 06:13 10/15/24 06:13 Labs: Laboratory Results - last 24 hr 10/14/24 04:57: Platelet Estimate SLT, Plt Morphology Comment LARGE 10/14/24 11:33: POC Glucose 126 H 10/14/24 13:35: Vancomycin Trough 22.3 H 10/14/24 21:49: Random Vancomycin 15.9 H 10/14/24 22:26: POC Glucose 150 H 10/15/24 06:02: POC Glucose 113 H 10/15/24 06:13: WBC 3.7 L, RBC 3.66 L, Hgb 10.1 L, Hct 31.7 L, MCV 86.6, MCH 27.6, MCHC 31.9 L D, RDW Std Deviation 51.3 H, RDW Coeff of Carlito 16.3 H, Plt Count 135 L, MPV 12.3 H, Immature Gran % (Auto) 4.000 H, Neut % (Auto) 51.1, Lymph % (Auto) 25.3, Stoddard % (Auto) 15.1 H, Eos % (Auto) 4.0, Baso % (Auto) 0.5, Absolute Neuts (auto) 1.9 L, Absolute Lymphs (auto) 0.94, Nucleated RBC % 0.5, Platelet Estimate SLT DEC, Polychromasia 1+, Sodium 140, Potassium 3.9, [id number], Carbon Dioxide 25.0, Anion Gap 8, BUN 19, Creatinine 0.94, Estim Creat Clear Calc 99.66, Est GFR (MDRD) Non-Af 87, BUN/Creatinine Ratio 19.7, Glucose 106 H, Calcium 8.3 Imaging Radiology Impression Echocardiogram 10/13/24 15:13 Interpretation Summary The estimated ejection fraction is 70 %. No evidence for diastolic dysfunction. Velocity across the bioprosthetic aortic valve appears to be increased suggestive of stenosis. Trivial aortic valve insufficiency. Ordering Physician: Monika Garcias Referring Physician: SAUL WANG Performed By: Maite Smith RCS 10/15/24 0943 Cosigner Signature (if applicable): CC: Kathleen Herzog MD~ Signed [facility]04-06-[address] [facility] Consult note Author Bartolo Washington [facility] Note Date/Time October 15, 2024 2:12 am [facility] Medical Records Department [address] [facility] [place] [address] Pharmacokinetic/Renal -Consult 10/15/24 0211 MR#: [id number] Acct: [id number] Name: JADON ALVAREZ Kenia Rep #:[id number] : 1955 69 From: Bartolo Bermudez od PCP: Kathleen Herzog MD Status:ADM IN Y Location: [place] [id number] Consult Antibiotic Management Pharmacy has been consulted to manage selected antibiotic: Vancomycin Type of Intervention Type of Consult: Follow-up Labs Labs: Sodium 139 mmol/L (133-145) 10/14/24 04:57 Potassium 3.8 mmol/L (3.3-5.1) 10/14/24 04:57 Chloride 108 mmol/L (98-108) 10/14/24 04:57 Carbon Dioxide 21.8 mmol/L (21.0-32.0) 10/14/24 04:57 Anion Gap 10 (5-15) 10/14/24 04:57 BUN 21 mg/dL (4-19) H 10/14/24 04:57 Creatinine 0.92 mg/dL (0.70-1.20) 10/14/24 04:57 Est GFR (MDRD) Non-Af 90 (>60) 10/14/24 04:57 BUN/Creatinine Ratio 22.5 RATIO (10-20) H 10/14/24 04:57 Glucose 96 mg/dL (70-99) 10/14/24 04:57 Vancomycin Trough 22.3 ug/mL (5.0-15.0) H 10/14/24 13:35 Random Vancomycin 15.9 ug/mL (0.0-15.0) H 10/14/24 21:49 Goal Trough Goal Trough: 15-20 mcg/mL Pharmacy Plan for Drug Dosing Pharmacy Plan for Drug Dosing: Pharmacy Service will continue to monitor and adjust dosing as required. RANDOM LEVEL 15.9 @ 16.5 HOURS. DECREASE TO 1250MG Q8H AND DRAW TROUGH PRIOR TO4TH DOSE Follow-Up Labs Follow-Up Labs: Trough: Vancomycin Date/Time Labs Ordered Labs to be done on [date and time ordered]: 10/15 @ 2300 10/15/24211 <Electronically signed by Bartolo smith> Date _ Bartolo Washington Cosigner Signature (if applicable): Date CC: ~ Signed [facility] Work Phone: 1(559) 753-710104-06-2025 Consult note [facility] Medical Records Department [address] [place] [address] Pharmacokinetic/Renal -Consult 10/15/24210 MR#: [id number] Acct: [id number] Name: DALEJADON A Rep #:[id number] : 1955 69 From: Bartolo Bermudez od PCP: Kathleen Herzog MD Status:ADM IN Location: [place] [id number] Consult Antibiotic Management Pharmacy has been consulted to manage selected antibiotic: Vancomycin Type of Intervention Type of Consult: Follow-up Labs Labs: Sodium 139 mmol/L (133-145) 10/14/24 04:57 Potassium 3.8 mmol/L (3.3-5.1) 10/14/24 04:57 Chloride 108 mmol/L (98-108) 10/14/24 04:57 Carbon Dioxide 21.8 mmol/L (21.0-32.0) 10/14/24 04:57 Anion Gap 10 (5-15) 10/14/24 04:57 BUN 21 mg/dL (4-19) H 10/14/24 04:57 Creatinine 0.92 mg/dL (0.70-1.20) 10/14/24 04:57 Est GFR (MDRD) Non-Af 90 (>60) 10/14/24 04:57 BUN/Creatinine Ratio 22.5 RATIO (10-20) H 10/14/24 04:57 Glucose 96 mg/dL (70-99) 10/14/24 04:57 Vancomycin Trough 22.3 ug/mL (5.0-15.0) H 10/14/24 13:35 Random Vancomycin 15.9 ug/mL (0.0-15.0) H 10/14/24 21:49 Goal Trough Goal Trough: 15-20 mcg/mL Pharmacy Plan for Drug Dosing Pharmacy Plan for Drug Dosing: Pharmacy Service will continue to monitor and adjust dosing as required. RANDOM LEVEL 15.9 @ 16.5 HOURS. DECREASE TO 1250MG Q8H AND DRAW TROUGH PRIOR TO4TH DOSE Follow-Up Labs Follow-Up Labs: Trough: Vancomycin Date/Time Labs Ordered Labs to be done on [date and time ordered]: 10/15 @ 2300 10/15/24 0212 lood> Date _ Bartolo Shay Signature (if applicable): Date CC: ~ Signed [facility]04-05-2025 Consult note Author Ignacia Martin [facility] Note Date/Time October 14, 2024 3:15 pm [facility] Medical Records Department [address] [place] [address] Pharmacokinetic/Renal -Consult 10/14/24 1438 MR#: [id number] Acct: [id number] Name: JADON ALVAREZ Rep #:[id number] : 1955 69 From: Ignacia jim PCP: Kathleen Herzog MD Status:ADM IN Location: [facility] [id number] Consult Antibiotic Management Pharmacy has been consulted to manage selected antibiotic: Vancomycin Type of Intervention Type of Consult: Follow-up Suspected Infection Suspected Infection: Bacteremia Prior Doses of Antibiotics Prior Doses of Antibiotics Received/Current Regimen: current dose is vanc 1500mg IV q8h Labs Labs: Sodium 139 mmol/L (133-145) 10/14/24 04:57 Potassium 3.8 mmol/L (3.3-5.1) 10/14/24 04:57 Chloride 108 mmol/L (98-108) 10/14/24 04:57 Carbon Dioxide 21.8 mmol/L (21.0-32.0) 10/14/24 04:57 Anion Gap 10 (5-15) 10/14/24 04:57 BUN 21 mg/dL (4-19) H 10/14/24 04:57 Creatinine 0.92 mg/dL (0.70-1.20) 10/14/24 04:57 Est GFR (MDRD) Non-Af 90 (>60) 10/14/24 04:57 BUN/Creatinine Ratio 22.5 RATIO (10-20) H 10/14/24 04:57 Glucose 96 mg/dL (70-99) 10/14/24 04:57 Vancomycin Trough 22.3 ug/mL (5.0-15.0) H 10/14/24 13:35 Dosing Weight Weight used for dosin.9 kg Estimated Creatinine Clearance Estimated Creatinine Clearance: 102 ml/min Goal Trough Goal Trough: 15-20 mcg/mL Pharmacy Plan for Drug Dosing Pharmacy Plan for Drug Dosing: The vanc trough drawn at 13:35 (approx 8.5 hours after the previous dose) was 22.3mcg/ml. This is above goal range so will hold current dose. Will check a random in 8 hours to see if dosing can be resumed at that time. Pharmacy Service will continue to monitor and adjust dosing as required. Follow-Up Labs Follow-Up Labs: Trough: Vancomycin (random) Date/Time Labs Ordered Labs to be done on [date and time ordered]: 10/14/24 22:00 10/14/24 1441 <Electronically signed by Ignacia gamble> Date _ Ignacia Martin 10/14/24 1515 <Electronically signed by Colby May MD> Cosigner Signature (if applicable): Date Colby May MD CC: ~ Signed [facility] Work Phone: 1(568) 912-826204-05-2025 Consult note [facility] Medical Records Department [address] [place] [address] Pharmacokinetic/Renal -Consult 10/14/24 1438 MR#: [id number] Acct: [id number] Name: JADON ALVAREZ Rep #:[id number] : 1955 69 From: Ignacia jim PCP: Kathleen Herzog MD Status:ADM IN Location: [place] [address] Consult Antibiotic Management Pharmacy has been consulted to manage selected antibiotic: Vancomycin Type of Intervention Type of Consult: Follow-up Suspected Infection Suspected Infection: Bacteremia Prior Doses of Antibiotics Prior Doses of Antibiotics Received/Current Regimen: current dose is vanc 1500mg IV q8h Labs Labs: Sodium 139 mmol/L (133-145) 10/14/24 04:57 Potassium 3.8 mmol/L (3.3-5.1) 10/14/24 04:57 Chloride 108 mmol/L (98-108) 10/14/24 04:57 Carbon Dioxide 21.8 mmol/L (21.0-32.0) 10/14/24 04:57 Anion Gap 10 (5-15) 10/14/24 04:57 BUN 21 mg/dL (4-19) H 10/14/24 04:57 Creatinine 0.92 mg/dL (0.70-1.20) 10/14/24 04:57 Est GFR (MDRD) Non-Af 90 (>60) 10/14/24 04:57 BUN/Creatinine Ratio 22.5 RATIO (10-20) H 10/14/24 04:57 Glucose 96 mg/dL (70-99) 10/14/24 04:57 Vancomycin Trough 22.3 ug/mL (5.0-15.0) H 10/14/24 13:35 Dosing Weight Weight used for dosin.9 kg Estimated Creatinine Clearance Estimated Creatinine Clearance: 102 ml/min Goal Trough Goal Trough: 15-20 mcg/mL Pharmacy Plan for Drug Dosing Pharmacy Plan for Drug Dosing: The vanc trough drawn at 13:35 (approx 8.5 hours after the previous dose) was 22.3mcg/ml. This is above goal range so will hold current dose. Will check a random in 8 hours to see if dosing can be resumed at that time. Pharmacy Service will continue to monitor and adjust dosing as required. Follow-Up Labs Follow-Up Labs: Trough: Vancomycin (random) Date/Time Labs Ordered Labs to be done on [date and time ordered]: 10/14/24 22:00 10/14/24 1441 erg> Date _ Ignacia Martin 10/14/24 1515 MD> Laurita Signature (if applicable): Date Colby May MD CC: ~ Signed [facility]04-04-2025 History and physical note Author Monika Garcias [facility] Note Date/Time October 13, 2024 7:09 pm [facility] Medical Records Department [address] [place] [address] H&P Exam - Hospitalist 10/13/24 1346 MR#: [id number] Acct: [id number] Name: JADON ALVAREZ Rep #:[id number] : 1955 69 From: Monika Garcias MD PCP: Kathleen Herzog MD Status:ADM IN Location: [facility] [id number] HPI - General General Date of Admission: 10/13/24 Date of Service: 10/13/24 Chief Complaint: positive blood cultures HPI Narrative JADON ALVAREZ, is a 69 M with a PMH as outlined who presents via the ED on 10/13/2024 with a complaint of positive blood cultures. He was just admitted on 10/10/2024 for UTI in the setting of indwelling martines catheter. Urine cultures grew Proteus, and he was discharged on Cefpodoxime. However, his blood culture gre MRSA x 2 in one sample from the left wrist so his alf was called for patient to be brought back to the ED. He denied any fever, chills, cough, chest pain, palpitations, dizzines, nausea, vomiting or any other symptoms. REview of systems is otherwise negative. Vitals in the ED were BP of 136/71, temp of 98.7F, [place] of 57 and RR of 18. He wassaturating at 98% on room air. CBC showed Hb of 10.7 and platelets of 80. INR was 1.3, with bicarb of 23 and potassium of 4.3. Cr was 0.93. Repeat blood cultures were done in the ED, and I did ask the ED doctor to give patient a doseof IV vancomycin. He is being admitted to be managed for MRSA bacteremia. FORMERLY [facility] Medical History MRSA (methicillin resistant staph aureus) culture positive Lives in alf Wears dentures Depression Anxiety Walker as ambulation aid Ambulates with cane Headache Shortness of breath on exertion Cardiology follow-up encounter History of renal disease Insulin dependent diabetes mellitus Pressure ulcer Abscess Indwelling urethral catheter present Acute painful diabetic polyneuropathy Cancer Former smoker CPAP (continuous positive airway pressure) dependence On home oxygen therapy Pulmonary embolism COPD (chronic obstructive pulmonary disease) Myocardial infarct DVT (deep venous thrombosis) Anemia Ulcer with necrosis of muscle Lymphedema of left lower extremity Lymphedema of right lower extremity Edema of left lower leg Edema of right lower leg Left leg swelling Right leg swelling Chronic venous insufficiency Non-pressure ulcer of right lower extremity with necrosis of muscle BPH (benign prostatic hyperplasia) Atrial fibrillation Blood loss anemia Hypertension Hiatal hernia Diverticulosis Debility Morbid obesity with BMI of 40.0-44.9, adult Impaired mobility SOB (shortness of breath) Heart murmur Heart failure 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 2 diabetes mellitus Aortic valve disease Renal mass, left History of DVT (deep vein thrombosis) Valvular heart disease Atrial fibrillation/flutter Chronic acquired lymphedema Chronic anemia Venous insufficiency (chronic) (peripheral) Ulcer of left lower extremity with fat layer exposed Superficial thrombosis of left lower extremity Peripheral vascular disease of lower extremity with ulceration Sleep apnea Morbid obesity DM2 (diabetes mellitus, type 2) Benign essential HTN Home Medications ?Medication ?Instructions ?Recorded ?Last Taken ?Type aspirin 81 mg tablet,delayed 81 mg PO DAILY AFIB 03/17 Unknown History release amlodipine 5 mg tablet 5 mg PO DAILY AFIB 10/28/23 Unknown History apixaban 5 mg tablet (Eliquis) 5 mg PO BID AFIB Unknown History atorvastatin 20 mg tablet 20 mg PO QHS HYPERLIPIDEMIA 10/28/23 Unknown History melatonin 3 mg tablet 6 mg PO QHS INSOMNIA 4 Unknown History tamsulosin 0.4 mg capsule 0.4 mg PO QHS PROSTATIC HYPE RPLASIA 12/22/23 Unknown History acetaminophen 325 mg tablet 650 mg PO Q4H PRN pain Unknown History (Tylenol) cyanocobalamin (vitamin B-12) 500 mcg PO DAILY 4 Unknown History 1,000 mcg capsule insulin glargine 100 unit/mL (3 23 unit subcut QHS Unknown History mL) subcutaneous pen (Lantus Solostar U-100 Insulin) donepezil 5 mg tablet 5 mg PO QHS MEMORY 08/16/24 Unknown History gabapentin 100 mg capsule 200 mg PO TID NEUROPATHY 12/03 Unknown History insulin lispro 100 unit/mL See Protocol subcut TID 12/03 Unknown History subcutaneous pen (Humalog KwikPen (U-100) Insulin) lurasidone 40 mg tablet 40 mg PO QHS MOOD 08/16/24 U nknown History potassium chloride 10 mEq 10 meq PO BID 08/16/24 Unkno wn History capsule,extended release torsemide 20 mg tablet 20 mg PO BID HEART 08/16/24 Unknown History budesonide-formoterol HFA 160 1 puff inhalation DAILY COPD 09/16/24 Unknown History mcg-4.5 mcg/actuation aerosol inhaler (Symbicort) lactulose 20 gram/30 mL oral 30 ml PO DAILY CONSTIPATI ON 09/16/24 Unknown History solution trazodone 100 mg tablet 100 mg PO QHS insomnia 09/16 Unknown History cefpodoxime 100 mg tablet 100 mg PO BID #20 tabs 10/12 Unknown Rx Allergy/AdvReac Type Severity Reaction Status Date / Time ibuprofen (From Nuprin) Allergy Unknown Verified 10/13/24 11:49 Family History Mother Diabetes Father Cirrhosis of liver Alcoholism Surgical History History of incision and drainage History of embolic filter insertion History of right inguinal hernia repair H/O colectomy History of repair of inguinal hernia History of bladder surgery History of tonsillectomy and adenoidectomy History of right inguinal hernia repair S/P AVR (aortic valve replacement) Social History housing: alf Smoking Status: Former smoker how long ago did patient quit smoking: Quit ~ 20 yrs prior, smoked age 15 untilquit ~ 2 ppd. alcohol intake: never substance use type: does not use ROS Constitutional Constitutional: Denies anorexia, chills, fatigue, fever(s), malaise or weakness Eyes Eyes: Denies change in vision ENT HEENT: Denies dysphagia Cardiovascular Cardiovascular: Denies chest pain, dyspnea on exertion, edema, lightheadedness, orthopnea, palpitations, paroxysmal nocturnal dyspnea, rapid heart rate or syncope Respiratory/Chest Respiratory/Chest: Denies cough, dyspnea, shortness of breath at rest or shortness of breath with exertion Gastrointestinal Gastrointestinal: Denies abdominal pain, nausea or vomiting Genitourinary Genitourinary: Denies dysuria Musculoskeletal Musculoskeletal: Denies arthralgias Neurologic Neurologic: Denies confusion, dizziness, focal weakness or headache(s) Psychiatric Psychiatric: Denies anxiety or depression Vital Signs Vital Signs Vital Signs: 10/13/24 11:49 10/13/24 11:52 10/13/24 11:52 Temperature 97.9 F 98.7 F Temperature Source Oral Oral Pulse Rate 58 L 60 Respiratory Rate 18 18 Respiratory Effort Normal Respiratory Pattern Normal Blood Pressure 171/69 H 171/78 H Blood Pressure Mean 103 109 Pulse Ox 98 97 Oxygen Delivery Method Room Air Room Air 10/13/24 12:52 10/13/24 13:42 Temperature 98.7 F Temperature Source Oral Pulse Rate 55 L 57 L Respiratory Rate 18 16 Respiratory Effort Respiratory Pattern Blood Pressure 136/71 H Blood Pressure Mean 92 Pulse Ox 98 Oxygen Delivery Method Room Air Weight Weight: 297 lb 6.457 oz Body Mass Index (BMI) 43.9 Physical Exam Const alert, oriented x3 and no apparent distress General Appearance: cooperative HEENT normocephalic, head/scalp atraumatic, hearing grossly normal bilaterally and moist oral mucous membranes Mouth: oral and palatal mucosa normal Eyes PERRL, EOMs intact bilaterally and conjunctivae normal Neck no lymphadenopathy, supple and no JVD Resp normal respiratory effort, no retractions, no use of accessory muscles and clearto auscultation bilaterally Cardio regular rate, regular rhythm, S1 normal heart sound, S2 normal heart sound and no murmurs GI normal to inspection, nondistended, normoactive bowel sounds, soft to palpation,non-tender and non-distended Extremity normal to inspection, full ROM and no clubbing, cyanosis or edema Neuro oriented x3, CN's II-XII intact bilaterally and moves all extremities Sensorium / Orientation: awake and alert Motor Exam: strength 5/5 throughout Psych affect normal Results Lab / Micro Data 10/13/24 12:40 10/13/24 12:40 Labs: Laboratory Results - last 24 hr 10/13/24 12:40: WBC 4.0 L, RBC 3.95 L, Hgb 10.7 L, Hct 34.3 L, MCV 86.8, MCH 27.1, MCHC 31.2 L, RDW Std Deviation 53.5 H, RDW Coeff of Carlito 16.7 H, Plt Count 80 L, Immature Gran % (Auto) 1.500 H, Neut % (Auto) 55.3, Lymph % (Auto) 17.7 L,Stoddard % (Auto) 22.0 H, Eos % (Auto) 2.5, Baso % (Auto) 1.0, Absolute Neuts (auto)2.2, Absolute Lymphs (auto) 0.70 L, Nucleated RBC % 0, PT 16.0 H, INR 1.3, APTT 33.8, Sodium 138, Potassium 4.3, Chloride 107, Carbon Dioxide 23.3, Anion Gap 9,BUN 26 H, Creatinine 0.93, Estim Creat Clear Calc 102.20, Est GFR (MDRD) Non-Af 88, BUN/Creatinine Ratio 28.2 H, Glucose 122 H, Lactic Acid < 1.0, Calcium 8.8, Total Bilirubin 0.44, AST 19, ALT 16, Alkaline Phosphatase 70, Total Protein 6.2, Albumin 3.0 L, Globulin 3.2, Albumin/Globulin Ratio 0.9 Assessment & Plan Assessment/Plan (1) Blood bacterial culture positive: PLAN: Plan #MRSA bacteremia * was recently admitted on 10/10/2024 for sepsis due to UTI. Urine cultures grew Proteus, and he was discharged on cepodoxime. * blood cultures however came back positive for MRSA in 1/2 samples, so patient was asked to come back to the ED * start on IV vancomycin. Repeat blood cultures drawn in the ED. * consult ID * get 2D echo * ##Left renal mass * CT as above. This is similar to prior CT of the abdomen and pelvis from 09/16/2024. There is no urology notes documented in the EMR but patient says he is aware of this mass. It is not clear whether he has followed up with urology has had treatment for it. * Since this is not acute, he will benefit from follow-up with urology on outpatient basis. #Hypertension: on amlodipine. Hold torsemide due to VALENTIN. #Hyperlipidemia: on statin #Dementia: on donepezil. #Type 2 diabetes mellitus: on lantus 23 units qhs. ISS. Accuchecks ACHS. #BPH with obstructive symptoms * has chronic indwelling martines catheter as mentioned above * on flomax * DVT prophylaxis: SCDs. NO anticoagulation due to hematuria Code status: DNRCCA with intubation * Documentation from alf showed that patient was DNR CCA with intubation. I asked patient this and he also confirmed this. Charges/Coding Visit Charges Inpatient E&M: 64947 Init Hosp L2 10/13/241908 <Electronically signed by Monika Garcias MD> Cosigner Signature (if applicable): CC: Dr. Monika Garcias MD; Kathleen Herzog MD~ Signed [facility] Work Phone: 1(698) 780-402904-04-2025 History and physical note [facility] Medical Records Department [address] [place] [address] H&P Exam - Hospitalist 10/13/24 1346 MR#: [id number] Acct: [id number] Name: JADON ALVAREZ Rep #:[id number] : 1955 69 From: Monika Garcias MD PCP: Kathleen Herzog MD Status:ADM IN [id number] - General General Date of Admission: 10/13/24 Date of Service: 10/13/24 Chief Complaint: positive blood cultures HPI Narrative JADON ALVAREZ, is a 69 M with a PMH as outlined who presents via the ED on 10/13/2024 with a complaint of positive blood cultures. He was just admitted on 10/10/2024 for UTI in the setting of indwelling martines catheter. Urine cultures grew Proteus, and he was discharged on Cefpodoxime. However, his blood culture gre MRSA x 2 in one sample from the left wrist so his alf was called for patient to be brought back to the ED. He denied any fever, chills, cough, chest pain, palpitations, dizzines, nausea, vomiting or any other symptoms. REview of systems is otherwise negative. Vitals in the ED were BP of 136/71, temp of 98.7F, [place] of 57 and RR of 18. He wassaturating at 98% on room air. CBC showed Hb of 10.7 and platelets of 80. INR was 1.3, with bicarb of 23 and potassium of 4.3. Cr was 0.93. Repeat blood cultures were done in the ED, and I did ask the ED doctor to give patient a doseof IV vancomycin. He is being admitted to be managed for MRSA bacteremia. [facility], [facility] Medical History MRSA (methicillin resistant staph aureus) culture positive Lives in alf Wears dentures Depression Anxiety Walker as ambulation aid Ambulates with cane Headache Shortness of breath on exertion Cardiology follow-up encounter History of renal disease Insulin dependent diabetes mellitus Pressure ulcer Abscess Indwelling urethral catheter present Acute painful diabetic polyneuropathy Cancer Former smoker CPAP (continuous positive airway pressure) dependence On home oxygen therapy Pulmonary embolism COPD (chronic obstructive pulmonary disease) Myocardial infarct DVT (deep venous thrombosis) Anemia Ulcer with necrosis of muscle Lymphedema of left lower extremity Lymphedema of right lower extremity Edema of left lower leg Edema of right lower leg Left leg swelling Right leg swelling Chronic venous insufficiency Non-pressure ulcer of right lower extremity with necrosis of muscle BPH (benign prostatic hyperplasia) Atrial fibrillation Blood loss anemia Hypertension Hiatal hernia Diverticulosis Debility Morbid obesity with BMI of 40.0-44.9, adult Impaired mobility SOB (shortness of breath) Heart murmur Heart failure 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 2 diabetes mellitus Aortic valve disease Renal mass, left History of DVT (deep vein thrombosis) Valvular heart disease Atrial fibrillation/flutter Chronic acquired lymphedema Chronic anemia Venous insufficiency (chronic) (peripheral) Ulcer of left lower extremity with fat layer exposed Superficial thrombosis of left lower extremity Peripheral vascular disease of lower extremity with ulceration Sleep apnea Morbid obesity DM2 (diabetes mellitus, type 2) Benign essential HTN Home Medications ?Medication ?Instructions ?Recorded ?Last Taken ?Type aspirin 81 mg tablet,delayed 81 mg PO DAILY AFIB 03/17 Unknown History release amlodipine 5 mg tablet 5 mg PO DAILY AFIB 10/28/23 Unknown History apixaban 5 mg tablet (Eliquis) 5 mg PO BID AFIB Unknown History atorvastatin 20 mg tablet 20 mg PO QHS HYPERLIPIDEMIA 10/28/23 Unknown History melatonin 3 mg tablet 6 mg PO QHS INSOMNIA 4 Unknown History tamsulosin 0.4 mg capsule 0.4 mg PO QHS PROSTATIC HYPE RPLASIA 12/22/23 Unknown History acetaminophen 325 mg tablet 650 mg PO Q4H PRN pain Unknown History (Tylenol) cyanocobalamin (vitamin B-12) 500 mcg PO DAILY 4 Unknown History 1,000 mcg capsule insulin glargine 100 unit/mL (3 23 unit subcut QHS Unknown History mL) subcutaneous pen (Lantus Solostar U-100 Insulin) donepezil 5 mg tablet 5 mg PO QHS MEMORY 08/16/24 Unknown History gabapentin 100 mg capsule 200 mg PO TID NEUROPATHY 12/03 Unknown History insulin lispro 100 unit/mL See Protocol subcut TID 12/03 Unknown History subcutaneous pen (Humalog KwikPen (U-100) Insulin) lurasidone 40 mg tablet 40 mg PO QHS MOOD 08/16/24 U nknown History potassium chloride 10 mEq 10 meq PO BID 08/16/24 Unkno wn History capsule,extended release torsemide 20 mg tablet 20 mg PO BID HEART 08/16/24 Unknown History budesonide-formoterol HFA 160 1 puff inhalation DAILY COPD 09/16/24 Unknown History mcg-4.5 mcg/actuation aerosol inhaler (Symbicort) lactulose 20 gram/30 mL oral 30 ml PO DAILY CONSTIPATI ON 09/16/24 Unknown History solution trazodone 100 mg tablet 100 mg PO QHS insomnia 09/16 Unknown History cefpodoxime 100 mg tablet 100 mg PO BID #20 tabs 10/12 Unknown Rx Allergy/AdvReac Type Severity Reaction Status Date / Time ibuprofen (From Nuprin) Allergy Unknown Verified 10/13/24 11:49 Family History Mother Diabetes Father Cirrhosis of liver Alcoholism Surgical History History of incision and drainage History of embolic filter insertion History of right inguinal hernia repair H/O colectomy History of repair of inguinal hernia History of bladder surgery History of tonsillectomy and adenoidectomy History of right inguinal hernia repair S/P AVR (aortic valve replacement) Social History housing: alf Smoking Status: Former smoker how long ago did patient quit smoking: Quit ~ 20 yrs prior, smoked age 15 untilquit ~ 2 ppd. alcohol intake: never substance use type: does not use ROS Constitutional Constitutional: Denies anorexia, chills, fatigue, fever(s), malaise or weakness Eyes Eyes: Denies change in vision ENT HEENT: Denies dysphagia Cardiovascular Cardiovascular: Denies chest pain, dyspnea on exertion, edema, lightheadedness, orthopnea, palpitations, paroxysmal nocturnal dyspnea, rapid heart rate or syncope Respiratory/Chest Respiratory/Chest: Denies cough, dyspnea, shortness of breath at rest or shortness of breath with exertion Gastrointestinal Gastrointestinal: Denies abdominal pain, nausea or vomiting Genitourinary Genitourinary: Denies dysuria Musculoskeletal Musculoskeletal: Denies arthralgias Neurologic Neurologic: Denies confusion, dizziness, focal weakness or headache(s) Psychiatric Psychiatric: Denies anxiety or depression Vital Signs Vital Signs Vital Signs: 10/13/24 11:49 10/13/24 11:52 10/13/24 11:52 Temperature 97.9 F 98.7 F Temperature Source Oral Oral Pulse Rate 58 L 60 Respiratory Rate 18 18 Respiratory Effort Normal Respiratory Pattern Normal Blood Pressure 171/69 H 171/78 H Blood Pressure Mean 103 109 Pulse Ox 98 97 Oxygen Delivery Method Room Air Room Air 10/13/24 12:52 10/13/24 13:42 Temperature 98.7 F Temperature Source Oral Pulse Rate 55 L 57 L Respiratory Rate 18 16 Respiratory Effort Respiratory Pattern Blood Pressure 136/71 H Blood Pressure Mean 92 Pulse Ox 98 Oxygen Delivery Method Room Air Weight Weight: 297 lb 6.457 oz Body Mass Index (BMI) 43.9 Physical Exam Const alert, oriented x3 and no apparent distress General Appearance: cooperative HEENT normocephalic, head/scalp atraumatic, hearing grossly normal bilaterally and moist oral mucous membranes Mouth: oral and palatal mucosa normal Eyes PERRL, EOMs intact bilaterally and conjunctivae normal Neck no lymphadenopathy, supple and no JVD Resp normal respiratory effort, no retractions, no use of accessory muscles and clearto auscultation bilaterally Cardio regular rate, regular rhythm, S1 normal heart sound, S2 normal heart sound and no murmurs GI normal to inspection, nondistended, normoactive bowel sounds, soft to palpation,non-tender and non-distended Extremity normal to inspection, full ROM and no clubbing, cyanosis or edema Neuro oriented x3, CN's II-XII intact bilaterally and moves all extremities Sensorium / Orientation: awake and alert Motor Exam: strength 5/5 throughout Psych affect normal Results Lab / Micro Data 10/13/24 12:40 10/13/24 12:40 Labs: Laboratory Results - last 24 hr 10/13/24 12:40: WBC 4.0 L, RBC 3.95 L, Hgb 10.7 L, Hct 34.3 L, MCV 86.8, MCH 27.1, MCHC 31.2 L, RDWStd Deviation 53.5 H, RDW Coeff of Carlito 16.7 H, Plt Count 80 L, Immature Gran % (Auto) 1.500 H, Neut% (Auto) 55.3, Lymph % (Auto) 17.7 L,Stoddard % (Auto) 22.0 H, Eos % (Auto) 2.5, Baso % (Auto) 1.0, Absolute Neuts (auto)2.2, Absolute Lymphs (auto) 0.70 L, Nucleated RBC % 0, PT 16.0 H, INR 1.3, APTT 33.8, Sodium 138, Potassium 4.3, Chloride 107, Carbon Dioxide 23.3, Anion Gap 9,BUN 26 H, Creatinine 0.93, Estim Creat Clear Calc 102.20, Est GFR (MDRD) Non-Af 88, BUN/Creatinine Ratio 28.2 H, Glucose 122 H, Lactic Acid < 1.0, Calcium 8.8, Total Bilirubin 0.44, AST 19, ALT 16, Alkaline Phosphatase 70, Total Protein 6.2, Albumin 3.0 L, Globulin 3.2, Albumin/Globulin Ratio 0.9 Assessment & Plan Assessment/Plan (1) Blood bacterial culture positive: PLAN: Plan #MRSA bacteremia * was recently admitted on 10/10/2024 for sepsis due to UTI. Urine cultures grew Proteus, and he was discharged on cepodoxime. * blood cultures however came back positive for MRSA in 1/2 samples, so patient was asked to come back to the ED * start on IV vancomycin. Repeat blood cultures drawn in the ED. * consult ID * get 2D echo * ##Left renal mass * CT as above. This is similar to prior CT of the abdomen and pelvis from 09/16/2024. There is no urology notes documented in the EMR but patient says he is aware of this mass. It is not clear whether he has followed up with urology has had treatment for it. * Since this is not acute, he will benefit from follow-up with urology on outpatient basis. #Hypertension: on amlodipine. Hold torsemide due to VALENTIN. #Hyperlipidemia: on statin #Dementia: on donepezil. #Type 2 diabetes mellitus: on lantus 23 units qhs. ISS. Accuchecks ACHS. #BPH with obstructive symptoms * has chronic indwelling martines catheter as mentioned above * on flomax * DVT prophylaxis: SCDs. NO anticoagulation due to hematuria Code status: DNRCCA with intubation * Documentation from alf showed that patient was DNR CCA with intubation. I asked patient this and he also confirmed this. Charges/Coding Visit Charges Inpatient E&M: 21187 Init Hosp L2 10/13/24 1909 Cosigner Signature (if applicable): CC: Dr. Monika Garcias MD; Kathleen Herzog MD~ Signed [facility]04-04-2025 Consult note Author Mirela Gandara [facility] Note Date/Time October 13, 2024 3:43 pm [facility] Medical Records Department [address] [place] [address] Pharmacokinetic/Renal -Consult 10/13/24 1542 MR#: [id number] Acct: [id number] Name: JADON ALVAREZ Rep #:[id number] : 1955 69 From: Mirela Gandara PCP: Kathleen Herzog MD Status:ADM IN Location: [place] [address] Consult Antibiotic Management Pharmacy has been consulted to manage selected antibiotic: Vancomycin Type of Intervention Type of Consult: New start Suspected Infection Suspected Infection: Bacteremia Labs Labs: Sodium 138 mmol/L (133-145) 10/13/24 12:40 Potassium 4.3 mmol/L (3.3-5.1) 10/13/24 12:40 Chloride 107 mmol/L (98-108) 10/13/24 12:40 Carbon Dioxide 23.3 mmol/L (21.0-32.0) 10/13/24 12:40 Anion Gap 9 (5-15) 10/13/24 12:40 BUN 26 mg/dL (4-19) H 10/13/24 12:40 Creatinine 0.93 mg/dL (0.70-1.20) 10/13/24 12:40 Est GFR (MDRD) Non-Af 88 (>60) 10/13/24 12:40 BUN/Creatinine Ratio 28.2 RATIO (10-20) H 10/13/24 12:40 Glucose 122 mg/dL (70-99) H 10/13/24 12:40 Goal Trough Goal Trough: 15-20 mcg/mL Pharmacy Plan for Drug Dosing Pharmacy Plan for Drug Dosing: [facility] IV VANCOMYCIN Consulting Physician: Dr. Garcias Indication: MRSA (+) bacteremia Goal Trough: 15-20 SrCr: 0.93 CrCl: 102 mL/min Comments: Patient had loading dose of 2000mg IV x1 in ED 10/13/24 @1422 Vancomycin Dose: 1500mg IV Q8h to start 10/13/24 @2200 Pending Level: 10/14/24 @1330, prior to 4th total dose per protocol Pharmacy Service will continue to monitor and adjust dosing as required. 10/13/24 1543 <Electronically signed by Mirela Gandara > Date _ Mirela Gandara Cosigner Signature (if applicable): Date CC: ~ Signed [facility] Work Phone: 1(347) 709-773604-04-2025 Consult note [facility] Medical Records Department [address] [facility] [place] [address] Pharmacokinetic/Renal -Consult 10/13/24 1542 MR#: [id number] Acct: [id number] Name: JADON ALVAREZ Rep #:[id number] : 1955 69 From: Mirela Gandara PCP: Kathleen Herzog MD Status:ADM IN Location: [place] [address] Consult Antibiotic Management Pharmacy has been consulted to manage selected antibiotic: Vancomycin Type of Intervention Type of Consult: New start Suspected Infection Suspected Infection: Bacteremia Labs Labs: Sodium 138 mmol/L (133-145) 10/13/24 12:40 Potassium 4.3 mmol/L (3.3-5.1) 10/13/24 12:40 Chloride 107 mmol/L (98-108) 10/13/24 12:40 Carbon Dioxide 23.3 mmol/L (21.0-32.0) 10/13/24 12:40 Anion Gap 9 (5-15) 10/13/24 12:40 BUN 26 mg/dL (4-19) H 10/13/24 12:40 Creatinine 0.93 mg/dL (0.70-1.20) 10/13/24 12:40 Est GFR (MDRD) Non-Af 88 (>60) 10/13/24 12:40 BUN/Creatinine Ratio 28.2 RATIO (10-20) H 10/13/24 12:40 Glucose 122 mg/dL (70-99) H 10/13/24 12:40 Goal Trough Goal Trough: 15-20 mcg/mL Pharmacy Plan for Drug Dosing Pharmacy Plan for Drug Dosing: [facility] VANCOMYCIN Consulting Physician: Dr. Garcias Indication: MRSA (+) bacteremia Goal Trough: 15-20 SrCr: 0.93 CrCl: 102 mL/min Comments: Patient had loading dose of 2000mg IV x1 in ED 10/13/24 @1422 Vancomycin Dose: 1500mg IV Q8h to start 10/13/24 @2200 Pending Level: 10/14/24 @1330, prior to 4th total dose per protocol Pharmacy Service will continue to monitor and adjust dosing as required. 10/13/24 1543 > Date _ Mirela Shay Signature (if applicable): Date CC: ~ Signed [facility]04-03-2025 Consult note [facility] Medical Records Department [address] [place] [address] Counseling Note - Pharmacy 10/12/24 1414 MR#: [id number] Acct: [id number] Name: JADON ALVAREZ Rep #:[id number] : 1955 69 From: Mirela Gandara PCP: Kathleen Herzog MD Status:ADM IN Location: [place] [address] Pharmacy [place] Med Reconciliation Pharmacy Service has performed discharge medication reconciliation for this patient upon transfer to SNF. The patient's discharge medication list was reviewed for discrepancies and discrepancies were resolved. Medications at Discharge Home Medications aspirin 81 mg tablet,delayed release 81 mg PO DAILY AFIB 03/17/19 amlodipine 5 mg tablet 5 mg PO DAILY AFIB 10/28/23 apixaban 5 mg tablet (Eliquis) 5 mg PO BID AFIB 10/28/23 atorvastatin 20 mg tablet 20 mg PO QHS HYPERLIPIDEMIA 10/28/23 melatonin 3 mg tablet 6 mg PO QHS INSOMNIA 10/28/23 tamsulosin 0.4 mg capsule 0.4 mg PO QHS PROSTATIC HYPERPLASIA 12/22/23 acetaminophen 325 mg tablet (Tylenol) 650 mg PO Q4H PRN pain 06/01/24 cyanocobalamin (vitamin B-12) 1,000 mcg capsule 500 mcg PO DAILY 06/01/24 insulin glargine 100 unit/mL (3 mL) subcutaneous pen (Lantus Solostar U-100 Insulin) 23 unit subcutQHS 06/01/24 donepezil 5 mg tablet 5 mg PO QHS MEMORY 08/16/24 gabapentin 100 mg capsule 200 mg PO TID NEUROPATHY 08/16/24 insulin lispro 100 unit/mL subcutaneous pen (Humalog KwikPen (U-100) Insulin) See Protocol subcut TID 08/16/24 lurasidone 40 mg tablet 40 mg PO QHS MOOD 08/16/24 potassium chloride 10 mEq capsule,extended release 10 meq PO BID 08/16/24 torsemide 20 mg tablet 20 mg PO BID HEART 08/16/24 budesonide-formoterol HFA 160 mcg-4.5 mcg/actuation aerosol inhaler (Symbicort) 1 puff inhalation DAILY COPD 09/16/24 lactulose 20 gram/30 mL oral solution 30 ml PO DAILY CONSTIPATION 09/16/24 trazodone 100 mg tablet 100 mg PO QHS insomnia 09/16/24 cefpodoxime 100 mg tablet 100 mg PO BID #20 tabs 10/12/24 10/12/24 1415 > Date _ Mirela Mariea Cosigner Signature (if applicable): Date CC: ~ [facility]04-03-2025 Discharge summary Author Dl Neely [facility] Note Date/Time October 12, 2024 11:4 7am [facility] Medical Records Department [address] [place] [address] Discharge Summary 10/12/24 1140 MR#: [id number] Acct: [id number] Name: JADON ALVAREZ Rep #:[id number] : 1955 69 From: Dl Neely MD PCP: Kathleen Herzog MD Status:ADM IN Location: [facility] [id number] Providers Date of Admission: 10/10/24 Date of Discharge: 10/12/24 Primary Care Physician: Dr. Kathleen Herzog MD Consultations 10/11/24 21:39 Consult: Onc/Wound/projector operator Routine Comment: Reason for Consult:: R leg wound Reason For Visit: SEPSIS DUE TO UTI, HEMATURIA Diagnosis Discharge Diagnosis (1) Sepsis: Status: Acute Code(s): A41.9 - Sepsis, unspecified organism (2) UTI (urinary tract infection): Status: Acute Code(s): N39.0 - Urinary tract infection, site not specified Plan Patient is a 69-year-old gentleman who was admitted with lower abdominal pain aswell as penile pain in the setting of an indwelling Martines catheter. An assessment of sepsis was made admitted to regular nursing floor for further management 1. Sepsis ? Secondary to acute cystitis with Proteus mirabilis secondary to presence of an indwelling Martines catheter. Patient was managed with protocol with IV fluid resuscitation, cultures including urine and blood and antibiotic therapy. Response to therapy monitored with serial lactic acid levels 2. Hematuria ? Present on admission secondary to acute cystitis. 3. Acute kidney injury ? Patient patient has a baseline creatinine 1.08 creatinine on admission was 2.06 patient started on IV fluids with subsequent monitoring of electrolyte 4. Dyslipidemia ?Patient is on statin therapy, continued at home dose 5. Hypertension ? Blood pressure controlled, home medications continued with dose adjustment as needed 6. Diabetes mellitus type II -patient's oral hypoglycemics held. Placed on long acting insulin, Accu-Cheks a.c. and at bedtime and covered with sliding scale insulin 8. BPH ? With obstructive symptoms patient is on Flomax in addition to chronic indwelling Martines catheter 8. History of previous DVT ? Patient is on apixaban which was held on admission given hematuria 9. Paroxysmal atrial fibrillation/flutter ? Rate controlled on systemic anticoagulation with apixaban which is currently being held given reasons above 10. Class III obesity with BMI of 42.5 ? Complicating care weight loss advised 11. COPD ? Currently not in exacerbation aerosol treatments as needed 12. Left renal mass CT obtained did show stable large lower pole renal exophytic mass with left adrenal nodule. This is incompletely evaluated by noncontrast examination, however findings are most compatible with renal neoplasm such as renal cell carcinoma. Consult placed to urology 13. Obstructive sleep apnea ? Patient is on CPAP 15. Mood disorder not specified ? Patient is on lurasidone 16. Peripheral vascular disease ? Patient is on aspirin atorvastatin and apixaban 17. DVT prophylaxis ? Patient is on apixaban which is currently being held given hematuria plan is to resume once hematuria resolved Time spent in the patient's overall evaluation,decision-making process, review of diagnostic data, adjustment of management, discussion with other providers, nursing nursing and ancillary staff involved in patient's care documentation, 36minutes Medications at Discharge Home Medications aspirin 81 mg tablet,delayed release 81 mg PO DAILY AFIB 03/17/19 amlodipine 5 mg tablet 5 mg PO DAILY AFIB 10/28/23 apixaban 5 mg tablet (Eliquis) 5 mg PO BID AFIB 10/28/23 atorvastatin 20 mg tablet 20 mg PO QHS HYPERLIPIDEMIA 10/28/23 melatonin 3 mg tablet 6 mg PO QHS INSOMNIA 10/28/23 tamsulosin 0.4 mg capsule 0.4 mg PO QHS PROSTATIC HYPERPLASIA 12/22/23 acetaminophen 325 mg tablet (Tylenol) 650 mg PO Q4H PRN pain 06/01/24 cyanocobalamin (vitamin B-12) 1,000 mcg capsule 500 mcg PO DAILY 06/01/24 insulin glargine 100 unit/mL (3 mL) subcutaneous pen (Lantus Solostar U-100 Insulin) 23 unit subcut QHS 06/01/24 donepezil 5 mg tablet 5 mg PO QHS MEMORY 08/16/24 gabapentin 100 mg capsule 200 mg PO TID NEUROPATHY 08/16/24 insulin lispro 100 unit/mL subcutaneous pen (Humalog KwikPen (U-100) Insulin) See Protocol subcut TID 08/16/24 lurasidone 40 mg tablet 40 mg PO QHS MOOD 08/16/24 potassium chloride 10 mEq capsule,extended release 10 meq PO BID 08/16/24 torsemide 20 mg tablet 20 mg PO BID HEART 08/16/24 budesonide-formoterol HFA 160 mcg-4.5 mcg/actuation aerosol inhaler (Symbicort) 1 puff inhalation DAILY COPD 09/16/24 lactulose 20 gram/30 mL oral solution 30 ml PO DAILY CONSTIPATION 09/16/24 trazodone 100 mg tablet 100 mg PO QHS insomnia 09/16/24 cefpodoxime 100 mg tablet 100 mg PO BID #20 tabs 10/12/24 Physical Exam Narrative GENERAL: Significantly flat affect HEENT: Atraumatic; normocephalic EYES; Anicteric, Normal Conjunctiva NECK; supple, normal thyroid, RESPIRATORY: Diminished to auscultation CARDIOVASCULAR: Regular S1 S2, GI: soft, normoactive bowel sounds, : No Renal angle tenderness; EXTREMITIES: No edema, no clubbing, MUSCULOSKELETAL: no muscle wasting NEURO: Awake; no lateralizing signs. SKIN: No Rash PSYCH; Flat affect Weight / BMI Weight Weight: 130.4 kg Body Mass Index (BMI) 42.4 ABG / Lab / Microbiology Data 10/12/24 05:30 10/12/24 05:30 Laboratory: Laboratory Results - last 24 hr 10/10/24 16:15: Urine Color Red, Urine Clarity Cloudy, Urine pH 9.0, Ur SpecificGravity 1.015, Urine Protein 500 H, Urine Glucose (UA) Normal, Urine Ketones Negative, Urine Occult Blood 250 H, Urine Nitrite Negative, Urine Bilirubin Negative, Urine Urobilinogen Normal, Ur Leukocyte Esterase 500 H, Urine RBC > 100 SEEN, Urine WBC 5-10 SEEN, Ur Squamous Epith Cells 0 SEEN, Urine Bacteria 2+, Urine Mucus 0 SEEN 10/11/24 15:54: POC Glucose 176 H 10/11/24 20:54: POC Glucose 166 H 10/12/24 05:30: WBC 3.7 L, RBC 3.39 L, Hgb 9.3 L, Hct 29.3 L, MCV 86.4, MCH 27.4, MCHC 31.7 L, RDW Std Deviation 54.2 H, RDW Coeff of Carlito 17.1 H, Plt Count 56 L, MPV TNP, Immature Gran % (Auto) 0.500, Neut % (Auto) 60.7, Lymph % (Auto) 18.1 L, Stoddard % (Auto) 19.1 H, Eos % (Auto) 1.3, Baso % (Auto) 0.3, Absolute Neuts (auto) 2.3, Absolute Lymphs (auto) 0.67 L, Nucleated RBC % 0, Sodium 141, Potassium 4.3, Chloride 112 H, Carbon Dioxide 21.7, Anion Gap 7, BUN 41 H, Creatinine 1.11, Estim Creat Clear Calc 84.02, Est GFR (MDRD) Non-Af 72, BUN/Creatinine Ratio 36.8 H, Glucose 117 H, Calcium 8.2, Phosphorus 3.0, Magnesium 2.4 H 10/12/24 06:31: POC Glucose 114 H 10/12/24 11:08: POC Glucose 146 H Microbiology: Microbiology 10/10/24 16:12 Blood Culture (Wb) - Right Wrist Blood Culture - Preliminary Gram negative jerald 10/10/24 15:40 Blood Culture (Wb) - Right Hand Blood Culture - Preliminary Gram negative jerald 10/10/24 16:15 Urine, Clean Catch Urine Culture - Final Proteus mirabilis 10/10/24 16:00 Mucosa - Nose SARS-CoV-2, Influenza & RSV (PCR) - Final D/C Instructions Discharge Diet: 1800 Calorie Control Diet Discharge Activity: Return to Normal Activity Call your doctor if you observe: Fever of 101 or Higher, Shortness of breath, Fainting spells and Chest pain DC O2, CPAP, BIPAP Needs PSN CPAP & BiPAP: BiPAP & CPAP Settings per PSN Mode CPAP 10/11/24 22:20 Bipap Delivery Device Face Mask 10/11/24 02:51 BiPAP Expiratory Pressure 12 10/11/24 22:20 Fraction of Inspired Oxygen ( 21 10/11/24 02:51 FIO2) Home O2 Discharge instructions: No Meaningful Use Info Meaningful Use Meaningful Use Diagnoses (Choose all that apply): None applicable Ischemic Stroke Statin Dosing Therapy Reference: STATIN DOSE THERAPY REFERENCE: * Patients > 75 years receive moderate or high dose statin therapy. * Patients 75 years or YOUNGER should receive HIGH intensity statin dose unless contraindicated. You will be required to document reason for non-treatment if statin daily dose does not meet guidelines. HIGH DOSE STATIN THERAPY DAILY Atorvastatin > than or = to 40 mg Rosuvastatin > than or = to 20 mg Amlodipine + Atorvastatin > than or = to 2.5/40 mg Ezetimibe + Simvastatin 10/80 mg Simvastatin 80mg Discharge Plan Admission Admit Date/Time: 10/10/24 17:46 Attending Provider: Dl Neely Primary Care Provider: Kathleen Herzog Consulting Providers: Monika Garcias Discharge Orders/Prescriptions Prescriptions: New cefpodoxime 100 mg tablet 100 mg PO BID Qty: 20 0RF Rx Instructions: must administer with a meal/food Continued tamsulosin 0.4 mg capsule 0.4 mg PO QHS aspirin 81 MG tablet,delayed release (DR/EC) 81 mg PO DAILY atorvastatin 20 mg tablet 20 mg PO QHS amlodipine 5 mg tablet 5 mg PO DAILY Eliquis 5 mg tablet 5 mg PO BID melatonin 3 mg tablet 6 mg PO QHS acetaminophen [Tylenol] 325 mg tablet 650 mg PO Q4H PRN (Reason: pain) insulin glargine [Lantus Solostar U-100 Insulin] 100 unit/mL (3 mL) insulin pen 23 unit subcut QHS Rx Instructions: sliding scale cyanocobalamin (vitamin B-12) 1,000 mcg capsule 500 mcg PO DAILY donepezil 5 mg tablet 5 mg PO QHS gabapentin 100 mg capsule 200 mg PO TID insulin lispro [Humalog KwikPen Insulin] 100 unit/mL insulin pen See Protocol subcut TID Protocol: 6. Sliding Scale Insulin Custom Condition: 151-200 Dose/Route: 2 UNITS Condition: 201-250 Dose/Route: 4 UNITS Condition: 251-300 Dose/Route: 6 UNITS Condition: 301-350 Dose/Route: 8 UNITS Condition: 351-400 Dose/Route: 10 Protocol Text: Custom Sliding Scale Rx Instructions: sliding scale lurasidone 40 mg tablet 40 mg PO QHS Rx Instructions: must administer with food (at least 350 calories) potassium chloride 10 mEq capsule, extended release 10 meq PO BID torsemide 20 mg tablet 20 mg PO BID lactulose 20 gram/30 mL solution 30 ml PO DAILY budesonide-formoterol [Symbicort] 160-4.5 mcg/actuation HFA aerosol inhaler 1 puff inhalation DAILY trazodone 100 mg tablet 100 mg PO QHS Referrals / Follow Up: Kathleen Herzog MD [Primary Care Provider] - Within 2 Weeks Nicho Santana MD [Med Staff - Active Staff] - Within 2 Weeks Disposition Disposition (needs filled in before D/C Order can be placed): Long-Term Facility Charges/Coding Visit Charges Inpatient E&M: 51133 Disch Hosp >30min 10/12/24 1147 <Electronically signed by Dl Neely MD> Cosigner Signature (if applicable): CC: Dr. Dl Neely MD; Kathleen Herzog MD~ Signed [facility] Work Phone: [phone]) 466-279704-03-2025 Discharge summary Author Dl Neely [facility] Note Date/Time October 12, 2024 11:4 0am [facility] Medical Records Department [address] [place] [address] Transfer to [facility] MR#: [id number] Acct: [id number] Name: JADON ALVAREZ Rep #:[id number] : 1955 69 From: Dl Neely MD PCP: Kathleen Herzog MD Status:ADM IN Certification of patient admission REQUIRED AT TIME OF ADMISSION. I CERTIFY THAT POST-HOSPITAL ECF SERVICES ARE REQUIRED TO BE GIVEN ON AN IN-PATIENT BASIS BECAUSE OF THE ABOVE NAMED PATIENT'S NEED FOR GROUP HOME CARE ON A CONTINUING BASIS FOR THE CONDITION(S) FOR WHICH HE/SHE WAS RECEIVING IN-PATIENT HOSPITAL SERVICES PRIOR TO HIS/HER TRANSFER TO THE F. 10/12/24 1140<Electronically signed by Dl Neely MD> Diet Diet Order/Speech Therapy: 10/10/24 18:51 Diet: Cardiac: Calorie-Controlled Food consistency:: Regular Liquid Consistency:: Regular/Thin How many daily calories?: 1800 calorie Routine Orders/Code Status Code Status: DNRCC-A DC O2, CPAP, BIPAP needs Home O2 Discharge instructions: No Wound(s) Right lateral calf: Wound Type: Stasis Ulcer Problem/Diagnosis (1) Sepsis: Status: Acute Code(s): A41.9 - Sepsis, unspecified organism (2) UTI (urinary tract infection): Status: Acute Code(s): N39.0 - Urinary tract infection, site not specified Plan Patient is a 69-year-old gentleman who was admitted with lower abdominal pain aswell as penile pain in the setting of an indwelling Martines catheter. An assessment of sepsis was made admitted to regular nursing floor for further management 1. Sepsis ? Secondary to acute cystitis with Proteus mirabilis secondary to presence of an indwelling Martines catheter. Patient was managed with protocol with IV fluid resuscitation, cultures including urine and blood and antibiotic therapy. Response to therapy monitored with serial lactic acid levels 2. Hematuria ? Present on admission secondary to acute cystitis. 3. Acute kidney injury ? Patient patient has a baseline creatinine 1.08 creatinine on admission was 2.06 patient started on IV fluids with subsequent monitoring of electrolyte 4. Dyslipidemia ?Patient is on statin therapy, continued at home dose 5. Hypertension ? Blood pressure controlled, home medications continued with dose adjustment as needed 6. Diabetes mellitus type II -patient's oral hypoglycemics held. Placed on long acting insulin, Accu-Cheks a.c. and at bedtime and covered with sliding scale insulin 8. BPH ? With obstructive symptoms patient is on Flomax in addition to chronic indwelling Martines catheter 8. History of previous DVT ? Patient is on apixaban which was held on admission given hematuria 9. Paroxysmal atrial fibrillation/flutter ? Rate controlled on systemic anticoagulation with apixaban which is currently being held given reasons above 10. Class III obesity with BMI of 42.5 ? Complicating care weight loss advised 11. COPD ? Currently not in exacerbation aerosol treatments as needed 12. Left renal mass CT obtained did show stable large lower pole renal exophytic mass with left adrenal nodule. This is incompletely evaluated by noncontrast examination, however findings are most compatible with renal neoplasm such as renal cell carcinoma. Consult placed to urology 13. Obstructive sleep apnea ? Patient is on CPAP 15. Mood disorder not specified ? Patient is on lurasidone 16. Peripheral vascular disease ? Patient is on aspirin atorvastatin and apixaban 17. DVT prophylaxis ? Patient is on apixaban which is currently being held given hematuria plan is to resume once hematuria resolved Time spent in the patient's overall evaluation,decision-making process, review of diagnostic data, adjustment of management, discussion with other providers, nursing nursing and ancillary staff involved in patient's care documentation, 52minutes Allergies/Procedures Done in Hospital Allergies ibuprofen (From Nuprin) Allergy (Verified 10/10/24 15:27) Unknown Type of Care/Length of Stay Estimated LOS: Convalescent Care Less Than 30 days Type of Care Needed: Intermediate Rehab Potential: Fair Prognosis: Fair Additional Orders/Day of Discharge Day of Discharge: 10/12/24 Dietary and Speech Recommendations Dietitian Recommendations/Changes: Continue 1800CCD/Cardiac diet to manage medical conditions. Discharge Plan Admission Admit Date/Time: 10/10/24 17:46 Attending Provider: Dl Neely Primary Care Provider: Kathleen Herzog Consulting Providers: Monika Garcias Discharge Orders/Prescriptions Prescriptions: New cefpodoxime 100 mg tablet 100 mg PO BID Qty: 20 0RF Rx Instructions: must administer with a meal/food Continued tamsulosin 0.4 mg capsule 0.4 mg PO QHS aspirin 81 MG tablet,delayed release (DR/EC) 81 mg PO DAILY atorvastatin 20 mg tablet 20 mg PO QHS amlodipine 5 mg tablet 5 mg PO DAILY Eliquis 5 mg tablet 5 mg PO BID melatonin 3 mg tablet 6 mg PO QHS acetaminophen [Tylenol] 325 mg tablet 650 mg PO Q4H PRN (Reason: pain) insulin glargine [Lantus Solostar U-100 Insulin] 100 unit/mL (3 mL) insulin pen 23 unit subcut QHS Rx Instructions: sliding scale cyanocobalamin (vitamin B-12) 1,000 mcg capsule 500 mcg PO DAILY donepezil 5 mg tablet 5 mg PO QHS gabapentin 100 mg capsule 200 mg PO TID insulin lispro [Humalog KwikPen Insulin] 100 unit/mL insulin pen See Protocol subcut TID Protocol: 6. Sliding Scale Insulin Custom Condition: 151-200 Dose/Route: 2 UNITS Condition: 201-250 Dose/Route: 4 UNITS Condition: 251-300 Dose/Route: 6 UNITS Condition: 301-350 Dose/Route: 8 UNITS Condition: 351-400 Dose/Route: 10 Protocol Text: Custom Sliding Scale Rx Instructions: sliding scale lurasidone 40 mg tablet 40 mg PO QHS Rx Instructions: must administer with food (at least 350 calories) potassium chloride 10 mEq capsule, extended release 10 meq PO BID torsemide 20 mg tablet 20 mg PO BID lactulose 20 gram/30 mL solution 30 ml PO DAILY budesonide-formoterol [Symbicort] 160-4.5 mcg/actuation HFA aerosol inhaler 1 puff inhalation DAILY trazodone 100 mg tablet 100 mg PO QHS Referrals / Follow Up: Kathleen Herzog MD [Primary Care Provider] - Within 2 Weeks Nicho Santana MD [Med Staff - Active Staff] - Within 2 Weeks Disposition Disposition (needs filled in before D/C Order can be placed): Long-Term Facility 10/12/24 1140 <Electronically signed by Dl Neely MD> Cosigner Signature (if applicable): CC: Dr. Monika Garcias MD; Kathleen Herzog MD ~ [facility] Work Phone: [phone]) [phone] Discharge summary [facility] Medical Records Department [address] [place] [address] Discharge Summary 10/12/24 1140 MR#: [id number] Acct: [id number] Name: JADON ALVAREZ Rep #:[id number] : 1955 69 From: Dl Neely MD PCP: Kathleen Herzog MD Status:ADM IN Location: [place] [id number] Providers Date of Admission: 10/10/24 Date of Discharge: 10/12/24 Primary Care Physician: Dr. Kathelen Herzog MD Consultations 10/11/24 21:39 Consult: Onc/Wound/projector operator Routine Comment: Reason for Consult:: R leg wound Reason For Visit: SEPSIS DUE TO UTI, HEMATURIA Diagnosis Discharge Diagnosis (1) Sepsis: Status: Acute Code(s): A41.9 - Sepsis, unspecified organism (2) UTI (urinary tract infection): Status: Acute Code(s): N39.0 - Urinary tract infection, site not specified Plan Patient is a 69-year-old gentleman who was admitted with lower abdominal pain aswell as penile painin the setting of an indwelling Martines catheter. An assessment of sepsis was made admitted to regular nursing floor for further management 1. Sepsis ? Secondary to acute cystitis with Proteus mirabilis secondary to presence of an indwelling Martines catheter. Patient was managed with protocol with IV fluid resuscitation, cultures including urine andblood and antibiotic therapy. Response to therapy monitored with serial lactic acid levels 2. Hematuria ? Present on admission secondary to acute cystitis. 3. Acute kidney injury ? Patient patient has a baseline creatinine 1.08 creatinine on admission was 2.06 patient started on IV fluids with subsequent monitoring of electrolyte 4. Dyslipidemia ?Patient is on statin therapy, continued at home dose 5. Hypertension ? Blood pressure controlled, home medications continued with dose adjustment as needed 6. Diabetes mellitus type II -patient's oral hypoglycemics held. Placed on long acting insulin, Accu-Cheks a.c. and at bedtime and covered with sliding scale insulin 8. BPH ? With obstructive symptoms patient is on Flomax in addition to chronic indwelling Martines catheter 8. History of previous DVT ? Patient is on apixaban which was held on admission given hematuria 9. Paroxysmal atrial fibrillation/flutter ? Rate controlled on systemic anticoagulation with apixaban which is currently being held given reasons above 10. Class III obesity with BMI of 42.5 ? Complicating care weight loss advised 11. COPD ? Currently not in exacerbation aerosol treatments as needed 12. Left renal mass CT obtained did show stable large lower pole renal exophytic mass with left adrenal nodule. This isincompletely evaluated by noncontrast examination, however findings are most compatible with renal neoplasm such as renal cell carcinoma. Consult placed to urology 13. Obstructive sleep apnea ? Patient is on CPAP 15. Mood disorder not specified ? Patient is on lurasidone 16. Peripheral vascular disease ? Patient is on aspirin atorvastatin and apixaban 17. DVT prophylaxis ? Patient is on apixaban which is currently being held given hematuria plan is to resume once hematuria resolved Time spent in the patient's overall evaluation,decision-making process, review of diagnostic data, adjustment of management, discussion with other providers, nursing nursing and ancillary staff involved in patient's care documentation, 36minutes Medications at Discharge Home Medications aspirin 81 mg tablet,delayed release 81 mg PO DAILY AFIB 03/17/19 amlodipine 5 mg tablet 5 mg PO DAILY AFIB 10/28/23 apixaban 5 mg tablet (Eliquis) 5 mg PO BID AFIB 10/28/23 atorvastatin 20 mg tablet 20 mg PO QHS HYPERLIPIDEMIA 10/28/23 melatonin 3 mg tablet 6 mg PO QHS INSOMNIA 10/28/23 tamsulosin 0.4 mg capsule 0.4 mg PO QHS PROSTATIC HYPERPLASIA 12/22/23 acetaminophen 325 mg tablet (Tylenol) 650 mg PO Q4H PRN pain 06/01/24 cyanocobalamin (vitamin B-12) 1,000 mcg capsule 500 mcg PO DAILY 06/01/24 insulin glargine 100 unit/mL (3 mL) subcutaneous pen (Lantus Solostar U-100 Insulin) 23 unit subcutQHS 06/01/24 donepezil 5 mg tablet 5 mg PO QHS MEMORY 08/16/24 gabapentin 100 mg capsule 200 mg PO TID NEUROPATHY 08/16/24 insulin lispro 100 unit/mL subcutaneous pen (Humalog KwikPen (U-100) Insulin) See Protocol subcut TID 08/16/24 lurasidone 40 mg tablet 40 mg PO QHS MOOD 08/16/24 potassium chloride 10 mEq capsule,extended release 10 meq PO BID 08/16/24 torsemide 20 mg tablet 20 mg PO BID HEART 08/16/24 budesonide-formoterol HFA 160 mcg-4.5 mcg/actuation aerosol inhaler (Symbicort) 1 puff inhalation DAILY COPD 09/16/24 lactulose 20 gram/30 mL oral solution 30 ml PO DAILY CONSTIPATION 09/16/24 trazodone 100 mg tablet 100 mg PO QHS insomnia 09/16/24 cefpodoxime 100 mg tablet 100 mg PO BID #20 tabs 10/12/24 Physical Exam Narrative GENERAL: Significantly flat affect HEENT: Atraumatic; normocephalic EYES; Anicteric, Normal Conjunctiva NECK; supple, normal thyroid, RESPIRATORY: Diminished to auscultation CARDIOVASCULAR: Regular S1 S2, GI: soft, normoactive bowel sounds, : No Renal angle tenderness; EXTREMITIES: No edema, no clubbing, MUSCULOSKELETAL: no muscle wasting NEURO: Awake; no lateralizing signs. SKIN: No Rash PSYCH; Flat affect Weight / BMI Weight Weight: 130.4 kg Body Mass Index (BMI) 42.4 ABG / Lab / Microbiology Data 10/12/24 05:30 10/12/24 05:30 Laboratory: Laboratory Results - last 24 hr 10/10/24 16:15: Urine Color Red, Urine Clarity Cloudy, Urine pH 9.0, Ur SpecificGravity 1.015, Urine Protein 500 H, Urine Glucose (UA) Normal, Urine Ketones Negative, Urine Occult Blood 250 H, Urine Nitrite Negative, Urine Bilirubin Negative, Urine Urobilinogen Normal, Ur Leukocyte Esterase 500 H, U rine RBC > 100 SEEN, Urine WBC 5-10 SEEN, Ur Squamous Epith Cells 0 SEEN, Urine Bacteria 2+, Urine Mucus 0 SEEN 10/11/24 15:54: POC Glucose 176 H 10/11/24 20:54: POC Glucose 166 H 10/12/24 05:30: WBC 3.7 L, RBC 3.39 L, Hgb 9.3 L, Hct 29.3 L, MCV 86.4, MCH 27.4, MCHC 31.7 L, RDW Std Deviation 54.2 H, RDW Coeff of Carlito 17.1 H, Plt Count 56 L, MPV TNP, Immature Gran % (Auto) 0.500, Neut % (Auto) 60.7, Lymph % (Auto) 18.1 L, Stoddard % (Auto) 19.1 H, Eos % (Auto) 1.3, Baso % (Auto) 0.3, Absolute Neuts (auto) 2.3, Absolute Lymphs (auto) 0.67 L, Nucleated RBC % 0, Sodium 141, Potassium 4.3, Chloride 112 H, Carbon Dioxide 21.7, Anion Gap 7, BUN 41 H, Creatinine 1.11, Estim Creat Clear Calc 84.02, Est GFR (MDRD) Non-Af 72, BUN/Creatinine Ratio 36.8 H, Glucose 117 H, Calcium 8.2, Phosphorus 3.0, Magnesium 2.4 H 10/12/24 06:31: POC Glucose 114 H 10/12/24 11:08: POC Glucose 146 H Microbiology: Microbiology 10/10/24 16:12 Blood Culture (Wb) - Right Wrist Blood Culture - Preliminary Gram negative jerald 10/10/24 15:40 Blood Culture (Wb) - Right Hand Blood Culture - Preliminary Gram negative jerald 10/10/24 16:15 Urine, Clean Catch Urine Culture - Final Proteus mirabilis 10/10/24 16:00 Mucosa - Nose SARS-CoV-2, Influenza & RSV (PCR) - Final D/C Instructions Discharge Diet: 1800 Calorie Control Diet Discharge Activity: Return to Normal Activity Call your doctor if you observe: Fever of 101 or Higher, Shortness of breath, Fainting spells and Chest pain DC O2, CPAP, BIPAP Needs PSN CPAP & BiPAP: BiPAP & CPAP Settings per PSN Mode CPAP 10/11/24 22:20 Bipap Delivery Device Face Mask 10/11/24 02:51 BiPAP Expiratory Pressure 12 10/11/24 22:20 Fraction of Inspired Oxygen ( 21 10/11/24 02:51 FIO2) Home O2 Discharge instructions: No Meaningful Use Info Meaningful Use Meaningful Use Diagnoses (Choose all that apply): None applicable Ischemic Stroke Statin Dosing Therapy Reference: STATIN DOSE THERAPY REFERENCE: * Patients > 75 years receive moderate or high dose statin therapy. * Patients 75 years or YOUNGER should receive HIGH intensity statin dose unless contraindicated. You will be required to document reason for non-treatment if statin daily dose does not meet guidelines. HIGH DOSE STATIN THERAPY DAILY Atorvastatin > than or = to 40 mg Rosuvastatin > than or = to 20 mg Amlodipine + Atorvastatin > than or = to 2.5/40 mg Ezetimibe + Simvastatin 10/80 mg Simvastatin 80mg Discharge Plan Admission Admit Date/Time: 10/10/24 17:46 Attending Provider: Dl Neely Primary Care Provider: Kathleen Hrezog Consulting Providers: Monika Garcias Discharge Orders/Prescriptions Prescriptions: New cefpodoxime 100 mg tablet 100 mg PO BID Qty: 20 0RF Rx Instructions: must administer with a meal/food Continued tamsulosin 0.4 mg capsule 0.4 mg PO QHS aspirin 81 MG tablet,delayed release (DR/EC) 81 mg PO DAILY atorvastatin 20 mg tablet 20 mg PO QHS amlodipine 5 mg tablet 5 mg PO DAILY Eliquis 5 mg tablet 5 mg PO BID melatonin 3 mg tablet 6 mg PO QHS acetaminophen [Tylenol] 325 mg tablet 650 mg PO Q4H PRN (Reason: pain) insulin glargine [Lantus Solostar U-100 Insulin] 100 unit/mL (3 mL) insulin pen 23 unit subcut QHS Rx Instructions: sliding scale cyanocobalamin (vitamin B-12) 1,000 mcg capsule 500 mcg PO DAILY donepezil 5 mg tablet 5 mg PO QHS gabapentin 100 mg capsule 200 mg PO TID insulin lispro [Humalog KwikPen Insulin] 100 unit/mL insulin pen See Protocol subcut TID Protocol: 6. Sliding Scale Insulin Custom Condition: 151-200 Dose/Route: 2 UNITS Condition: 201-250 Dose/Route: 4 UNITS Condition: 251-300 Dose/Route: 6 UNITS Condition: 301-350 Dose/Route: 8 UNITS Condition: 351-400 Dose/Route: 10 Protocol Text: Custom Sliding Scale Rx Instructions: sliding scale lurasidone 40 mg tablet 40 mg PO QHS Rx Instructions: must administer with food (at least 350 calories) potassium chloride 10 mEq capsule, extended release 10 meq PO BID torsemide 20 mg tablet 20 mg PO BID lactulose 20 gram/30 mL solution 30 ml PO DAILY budesonide-formoterol [Symbicort] 160-4.5 mcg/actuation HFA aerosol inhaler 1 puff inhalation DAILY trazodone 100 mg tablet 100 mg PO QHS Referrals / Follow Up: Kathleen Herzog MD [Primary Care Provider] - Within 2 Weeks Nicho Santana MD [Med Staff - Active Staff] - Within 2 Weeks Disposition Disposition (needs filled in before D/C Order can be placed): Long-Term Facility Charges/Coding Visit Charges Inpatient E&M: 70020 Disch Hosp >30min 10/12/24 1147 Cosigner Signature (if applicable): CC: Dr. Dl Neely MD; Kathleen Herzog MD~ Signed [facility]04-03-2025 Discharge summary [facility] Medical Records Department [address] [place] [id number] Transfer to [facility] MR#: [id number] Acct: [id number] Name: JADON ALVAREZ Rep #:[id number] 6 : 1955 69 From: Dl Neely MD PCP: Kathleen Herzog MD Status:ADM IN Certification of patient admission REQUIRED AT TIME OF ADMISSION. I CERTIFY THAT POST-HOSPITAL F SERVICES ARE REQUIRED TO BE GIVEN ON AN IN-PATIENT BASIS BECAUSE OF THE ABOVE NAMED PATIENT'S NEED FOR GROUP HOME CARE ON A CONTINUING BASIS FOR THE CONDITION(S) FOR WHICH HE/SHE WAS RECEIVING IN-PATIENT HOSPITAL SERVICES PRIOR TO HIS/HER TRANSFER TO THE [facility]. 10/12/24 1140 Diet Diet Order/Speech Therapy: 10/10/24 18:51 Diet: Cardiac: Calorie-Controlled Food consistency:: Regular Liquid Consistency:: Regular/Thin How many daily calories?: 1800 calorie Routine Orders/Code Status Code Status: DNRCC-A DC O2, CPAP, BIPAP needs Home O2 Discharge instructions: No Wound(s) Right lateral calf: Wound Type: Stasis Ulcer Problem/Diagnosis (1) Sepsis: Status: Acute Code(s): A41.9 - Sepsis, unspecified organism (2) UTI (urinary tract infection): Status: Acute Code(s): N39.0 - Urinary tract infection, site not specified Plan Patient is a 69-year-old gentleman who was admitted with lower abdominal pain aswell as penile painin the setting of an indwelling Martines catheter. An assessment of sepsis was made admitted to regular nursing floor for further management 1. Sepsis ? Secondary to acute cystitis with Proteus mirabilis secondary to presence of an indwelling Martines catheter. Patient was managed with protocol with IV fluid resuscitation, cultures including urine andblood and antibiotic therapy. Response to therapy monitored with serial lactic acid levels 2. Hematuria ? Present on admission secondary to acute cystitis. 3. Acute kidney injury ? Patient patient has a baseline creatinine 1.08 creatinine on admission was 2.06 patient started on IV fluids with subsequent monitoring of electrolyte 4. Dyslipidemia ?Patient is on statin therapy, continued at home dose 5. Hypertension ? Blood pressure controlled, home medications continued with dose adjustment as needed 6. Diabetes mellitus type II -patient's oral hypoglycemics held. Placed on long acting insulin, Accu-Cheks a.c. and at bedtime and covered with sliding scale insulin 8. BPH ? With obstructive symptoms patient is on Flomax in addition to chronic indwelling Martines catheter 8. History of previous DVT ? Patient is on apixaban which was held on admission given hematuria 9. Paroxysmal atrial fibrillation/flutter ? Rate controlled on systemic anticoagulation with apixaban which is currently being held given reasons above 10. Class III obesity with BMI of 42.5 ? Complicating care weight loss advised 11. COPD ? Currently not in exacerbation aerosol treatments as needed 12. Left renal mass CT obtained did show stable large lower pole renal exophytic mass with left adrenal nodule. This isincompletely evaluated by noncontrast examination, however findings are most compatible with renal neoplasm such as renal cell carcinoma. Consult placed to urology 13. Obstructive sleep apnea ? Patient is on CPAP 15. Mood disorder not specified ? Patient is on lurasidone 16. Peripheral vascular disease ? Patient is on aspirin atorvastatin and apixaban 17. DVT prophylaxis ? Patient is on apixaban which is currently being held given hematuria plan is to resume once hematuria resolved Time spent in the patient's overall evaluation,decision-making process, review of diagnostic data, adjustment of management, discussion with other providers, nursing nursing and ancillary staff involved in patient's care documentation, 52minutes Allergies/Procedures Done in Hospital Allergies ibuprofen (From Nuprin) Allergy (Verified 10/10/24 15:27) Unknown Type of Care/Length of Stay Estimated LOS: Convalescent Care Less Than 30 days Type of Care Needed: Intermediate Rehab Potential: Fair Prognosis: Fair Additional Orders/Day of Discharge Day of Discharge: 10/12/24 Dietary and Speech Recommendations Dietitian Recommendations/Changes: Continue 1800CCD/Cardiac diet to manage medical conditions. Discharge Plan Admission Admit Date/Time: 10/10/24 17:46 Attending Provider: Dl Neely Primary Care Provider: Kathleen Herzog Consulting Providers: Monika Garcias Discharge Orders/Prescriptions Prescriptions: New cefpodoxime 100 mg tablet 100 mg PO BID Qty: 20 0RF Rx Instructions: must administer with a meal/food Continued tamsulosin 0.4 mg capsule 0.4 mg PO QHS aspirin 81 MG tablet,delayed release (DR/EC) 81 mg PO DAILY atorvastatin 20 mg tablet 20 mg PO QHS amlodipine 5 mg tablet 5 mg PO DAILY Eliquis 5 mg tablet 5 mg PO BID melatonin 3 mg tablet 6 mg PO QHS acetaminophen [Tylenol] 325 mg tablet 650 mg PO Q4H PRN (Reason: pain) insulin glargine [Lantus Solostar U-100 Insulin] 100 unit/mL (3 mL) insulin pen 23 unit subcut QHS Rx Instructions: sliding scale cyanocobalamin (vitamin B-12) 1,000 mcg capsule 500 mcg PO DAILY donepezil 5 mg tablet 5 mg PO QHS gabapentin 100 mg capsule 200 mg PO TID insulin lispro [Humalog KwikPen Insulin] 100 unit/mL insulin pen See Protocol subcut TID Protocol: 6. Sliding Scale Insulin Custom Condition: 151-200 Dose/Route: 2 UNITS Condition: 201-250 Dose/Route: 4 UNITS Condition: 251-300 Dose/Route: 6 UNITS Condition: 301-350 Dose/Route: 8 UNITS Condition: 351-400 Dose/Route: 10 Protocol Text: Custom Sliding Scale Rx Instructions: sliding scale lurasidone 40 mg tablet 40 mg PO QHS Rx Instructions: must administer with food (at least 350 calories) potassium chloride 10 mEq capsule, extended release 10 meq PO BID torsemide 20 mg tablet 20 mg PO BID lactulose 20 gram/30 mL solution 30 ml PO DAILY budesonide-formoterol [Symbicort] 160-4.5 mcg/actuation HFA aerosol inhaler 1 puff inhalation DAILY trazodone 100 mg tablet 100 mg PO QHS Referrals / Follow Up: Kathleen Herzog MD [Primary Care Provider] - Within 2 Weeks Nicho Santana MD [Med Staff - Active Staff] - Within 2 Weeks Disposition Disposition (needs filled in before D/C Order can be placed): Long-Term Facility 10/12/24 1140 Cosigner Signature (if applicable): CC: Dr. Monika Garcias MD; Kathleen Herzog MD ~ [facility]04-03-2025 [facility]04-02-2025 Progress note Author Dl Neely [facility] Note Date/Time October 11, 2024 11:0 1am [facility] Medical Records Department [address] [place] [address] Progress Note - Hospitalist 10/11/24 1047 MR#: [id number] Acct: [id number] Name: JADON ALVAREZ Rep #:[id number] 1 : 1955 69 From: Dl Neely MD PCP: Kathleen Herzog MD Status:ADM IN Location: [place] [id number] Reason for Visit Reason for Visit: Diagnoses Sepsis, unspecified organism (10/10/24) Urinary tract infection, site not specified (10/10/24) Subjective Subjective Patient is a 69-year-old gentleman who was admitted with lower abdominal pain aswell as penile pain in the setting of an indwelling Martines catheter. An assessment of sepsis was made admitted to regular nursing floor for further management Objective Data Objective Data Vital Signs: Vital Signs Temp Pulse Resp BP Pulse Ox O2 Del Method O2 Flow Rate 98.0 F 72 18 116/62 92 Room Air 2 10/11/24 07:45 10/11/24 07:45 10/11/24 07:45 10/11/24 07:45 10/11/24 07:45 10/11/24 07:49 10/10/24 18:00 FiO2 21 10/11/24 02:51 Oxygen Flow Rate (L/min) 2 Oxygen Delivery Method Room Air Weight: 130.4 kg Body Mass Index (BMI) 42.4 Intake & Output: Intake and Output for Last 24 Hours 10/09/24 10/10/24 10/11/24 23:59 23:59 23:59 Intake Total 1450 / 1650 1420 / 1420 Output Total 1050 / 1050 Balance 1450 / 1050 370 / 370 Lab / Micro Data 10/11/24 04:18 10/11/24 04:18 Labs: Laboratory Results - last 24 hr 10/10/24 15:40: WBC 3.7 L, RBC 4.20 L, Hgb 11.7 L, Hct 35.8 L, MCV 85.2, MCH 27.9, MCHC 32.7, RDW Std Deviation 51.7 H, RDW Coeff of Carlito 16.7 H, Plt Count 59L, MPV TNP, Immature Gran % (Auto) 0.300, Neut % (Auto) 87.7 H, Lymph % (Auto) 6.7 L, Stoddard % (Auto) 3.2, Eos % (Auto) 0.0, Baso % (Auto) 2.1 H, Absolute Neuts (auto) 3.3, Absolute Lymphs (auto) 0.25 L, Nucleated RBC % 0, Differential Comment SCANNED, PT 19.6 H, INR 1.6, APTT 35.3, Sodium 138, Potassium 4.5, Chloride 104, Carbon Dioxide 20.3 L, Anion Gap 14, BUN 69 H, Creatinine 2.06 H, Estim Creat Clear Calc 45.27 L, Est GFR (MDRD) Non-Af 34 L, BUN/Creatinine Ratio33.3 H, Glucose 178 H, Lactic Acid 3.7 H*, Calcium 9.0, Total Bilirubin 0.61, AST 53 H, ALT 33, Alkaline Phosphatase 105, Total Protein 6.6, Albumin 3.1 L, Globulin 3.5, Albumin/Globulin Ratio 0.9 10/10/24 16:15: Urine Color Red, Urine Clarity Cloudy, Urine pH 9.0, Ur SpecificGravity 1.015, Urine Protein 500 H, Urine Glucose (UA) Normal, Urine Ketones Negative, Urine Occult Blood 250 H, Urine Nitrite Negative, Urine Bilirubin Negative, Urine Urobilinogen Normal, Ur Leukocyte Esterase 500 H, Urine RBC > 100 SEEN, Urine WBC 5-10 SEEN, Ur Squamous Epith Cells 0 SEEN, Urine Bacteria 2+, Urine Mucus 0 SEEN 10/10/24 18:44: POC Glucose 161 H 10/10/24 20:25: Lactic Acid < 1.0 10/10/24 21:45: POC Glucose 181 H 10/11/24 04:18: WBC 5.3, RBC 3.60 L, Hgb 10.0 L, Hct 30.6 L, MCV 85.0, MCH 27.8,MCHC 32.7, RDW Std Deviation 52.5 H, RDW Coeff of Carlito 16.8 H, Plt Count 57 L, MPV TNP, Immature Gran % (Auto) 0.400, Neut % (Auto) 74.0 H, Lymph % (Auto) 13.0L, Stoddard % (Auto) 12.0 H, Eos % (Auto) 0.2, Baso % (Auto) 0.4, Absolute Neuts (auto) 3.9, Absolute Lymphs (auto) 0.69 L, Nucleated RBC % 0, Platelet Estimate MOD DEC, Plt Morphology Comment LARGE, Sodium 139, Potassium 4.4, Chloride 109 H, Carbon Dioxide 19.2 L, Anion Gap 10, BUN 61 H, Creatinine 1.59 H, Estim Creat Clear Calc 58.66, Est GFR (MDRD) Non-Af 47 L, BUN/Creatinine Ratio 38.4 H, Glucose 158 H, Calcium 8.2 10/11/24 05:53: POC Glucose 146 H Micro: Microbiology 10/10/24 16:12 Blood Culture (Wb) - Venous Blood Culture - Preliminary 10/10/24 15:40 Blood Culture (Wb) - Venous Blood Culture - Preliminary 10/10/24 16:00 Mucosa - Nose SARS-CoV-2, Influenza & RSV (PCR) - Final Radiography Diagnostic Testing: Radiology Impression Chest X-Ray 10/10/24 17:00 IMPRESSION: No Acute Findings. [facility] Ab[facility]/Pelvis CT 10/10/24 17:35 IMPRESSION: 1. No acute abdominopelvic finding. 2. Right inguinal hernia containing a portion of the urinary bladder, unchanged since prior examination. The urinary bladder is decompressed by indwelling Martines catheter. 3. Stable large lower pole renal exophytic mass with left adrenal nodule. This is incompletely evaluated by noncontrast examination, however findings are most compatible with renal neoplasm such as renal cell carcinoma. Correlation with outpatient nonemergent CT or MRI abdomen (renal protocol) should be performed for further evaluation. 4. Mild splenomegaly. 5. Clustered nodularity within the left lower lobe, which may be represent infectious/inflammatory etiology such best aspiration pneumonia. Reading Location: [facility] Physical Exam Narrative GENERAL: Significantly flat affect HEENT: Atraumatic; normocephalic EYES; Anicteric, Normal Conjunctiva NECK; supple, normal thyroid, RESPIRATORY: Diminished to auscultation CARDIOVASCULAR: Regular S1 S2, GI: soft, normoactive bowel sounds, : No Renal angle tenderness; EXTREMITIES: No edema, no clubbing, MUSCULOSKELETAL: no muscle wasting NEURO: Awake; no lateralizing signs. SKIN: No Rash PSYCH; Flat affect Assessment & Plan Assessment/Plan (1) Sepsis: (2) UTI (urinary tract infection): PLAN: Plan Patient is a 69-year-old gentleman who was admitted with lower abdominal pain aswell as penile pain in the setting of an indwelling Martines catheter. An assessment of sepsis was made admitted to regular nursing floor for further management 1. Sepsis ? Secondary to acute cystitis secondary to presence of an indwelling Martines catheter. Patient was managed with protocol with IV fluid resuscitation, cultures including urine and blood and antibiotic therapy. Response to therapy monitored with serial lactic acid levels 2. Hematuria ? Present on admission secondary to acute cystitis. 3. Acute kidney injury ? Patient patient has a baseline creatinine 1.08 creatinine on admission was 2.06 patient started on IV fluids with subsequent monitoring of electrolyte 4. Dyslipidemia ?Patient is on statin therapy, continued at home dose 5. Hypertension ? Blood pressure controlled, home medications continued with dose adjustment as needed 6. Diabetes mellitus type II -patient's oral hypoglycemics held. Placed on long acting insulin, Accu-Cheks a.c. and at bedtime and covered with sliding scale insulin 8. BPH ? With obstructive symptoms patient is on Flomax in addition to chronic indwelling Martines catheter 8. History of previous DVT ? Patient is on apixaban which was held on admission given hematuria 9. Paroxysmal atrial fibrillation/flutter ? Rate controlled on systemic anticoagulation with apixaban which is currently being held given reasons above 10. Class III obesity with BMI of 42.5 ? Complicating care weight loss advised 11. COPD ? Currently not in exacerbation aerosol treatments as needed 12. Left renal mass CT obtained did show stable large lower pole renal exophytic mass with left adrenal nodule. This is incompletely evaluated by noncontrast examination, however findings are most compatible with renal neoplasm such as renal cell carcinoma. Consult placed to urology 13. Obstructive sleep apnea ? Patient is on CPAP 15. Mood disorder not specified ? Patient is on lurasidone 16. Peripheral vascular disease ? Patient is on aspirin atorvastatin and apixaban 17. DVT prophylaxis ? Patient is on apixaban which is currently being held given hematuria plan is to resume once hematuria resolved Time spent in the patient's overall evaluation,decision-making process, review of diagnostic data, adjustment of management, discussion with other providers, nursing nursing and ancillary staff involved in patient's care documentation, 52minutes Charges/Coding Visit Charges Inpatient E&M: 23513 Subs Hosp L3 10/11/24 1101 <Electronically signed by Dl Neely MD> Cosigner Signature (if applicable): CC: ~ Signed [facility] Work Phone: 1([phone]) 428-786304-02-2025 Progress note [facility] Medical Records Department [address] [place] [address] Progress Note - Hospitalist 10/11/24 1047 MR#: [id number] Acct: [id number] Name: JADON ALVAREZ Rep #:[id number] 1 : 1955 69 From: Dl Neely MD PCP: Kathleen Herzog MD Status:ADM IN Location: [place] [address] Reason for Visit Reason for Visit: Diagnoses Sepsis, unspecified organism (10/10/24) Urinary tract infection, site not specified (10/10/24) Subjective Subjective Patient is a 69-year-old gentleman who was admitted with lower abdominal pain aswell as penile painin the setting of an indwelling Martines catheter. An assessment of sepsis was made admitted to regular nursing floor for further management Objective Data Objective Data Vital Signs: Vital Signs Temp Pulse Resp BP Pulse Ox O2 Del Method O2 Flow Rate 98.0 F 72 18 116/62 92 Room Air 2 10/11/24 07:45 10/11/24 07:45 10/11/24 07:45 10/11/24 07:45 10/11/24 07:45 10/11/24 07:49 10/10/24 18:00 FiO2 21 10/11/24 02:51 Oxygen Flow Rate (L/min) 2 Oxygen Delivery Method Room Air Weight: 130.4 kg Body Mass Index (BMI) 42.4 Intake & Output: Intake and Output for Last 24 Hours 10/09/24 10/10/24 10/11/24 23:59 23:59 23:59 Intake Total 1450 / 1650 1420 / 1420 Output Total 1050 / 1050 Balance 1450 / 1050 370 / 370 Lab / Micro Data 10/11/24 04:18 10/11/24 04:18 Labs: Laboratory Results - last 24 hr 10/10/24 15:40: WBC 3.7 L, RBC 4.20 L, Hgb 11.7 L, Hct 35.8 L, MCV 85.2, MCH 27.9, MCHC 32.7, RDW Std Deviation 51.7 H, RDW Coeff of Carlito 16.7 H, Plt Count 59L, MPV TNP, Immature Gran % (Auto) 0.300, Neut % (Auto) 87.7 H, Lymph % (Auto) 6.7 L, Stoddard % (Auto) 3.2, Eos % (Auto) 0.0, Baso % (Auto) 2.1 H, Absolute Neuts (auto) 3.3, Absolute Lymphs (auto) 0.25 L, Nucleated RBC % 0, Differential Comment SCANNED, PT 19.6 H, INR 1.6, APTT 35.3, Sodium 138, Potassium 4.5, Chloride 104, Carbon Dioxide 20.3L, Anion Gap 14, BUN 69 H, Creatinine 2.06 H, Estim Creat Clear Calc 45.27 L, Est GFR (MDRD) Non-Af34 L, BUN/Creatinine Ratio33.3 H, Glucose 178 H, Lactic Acid 3.7 H*, Calcium 9.0, Total Bilirubin 0. 61, AST 53 H, ALT 33, Alkaline Phosphatase 105, Total Protein 6.6, Albumin 3.1 L, Globulin 3.5, Albumin/Globulin Ratio 0.9 10/10/24 16:15: Urine Color Red, Urine Clarity Cloudy, Urine pH 9.0, Ur SpecificGravity 1.015, Urine Protein 500 H, Urine Glucose (UA) Normal, Urine Ketones Negative, Urine Occult Blood 250 H, Urine Nitrite Negative, Urine Bilirubin Negative, Urine Urobilinogen Normal, Ur Leukocyte Esterase 500 H, U rine RBC > 100 SEEN, Urine WBC 5-10 SEEN, Ur Squamous Epith Cells 0 SEEN, Urine Bacteria 2+, Urine Mucus 0 SEEN 10/10/24 18:44: POC Glucose 161 H 10/10/24 20:25: Lactic Acid < 1.0 10/10/24 21:45: POC Glucose 181 H 10/11/24 04:18: WBC 5.3, RBC 3.60 L, Hgb 10.0 L, Hct 30.6 L, MCV 85.0, MCH 27.8,MCHC 32.7, RDW Std Deviation 52.5 H, RDW Coeff of Carlito 16.8 H, Plt Count 57 L, MPV TNP, Immature Gran % (Auto) 0.400, Neut % (Auto) 74.0 H, Lymph % (Auto) 13.0L, Stoddard % (Auto) 12.0 H, Eos % (Auto) 0.2, Baso % (Auto) 0.4,Absolute Neuts (auto) 3.9, Absolute Lymphs (auto) 0.69 L, Nucleated RBC % 0, Platelet Estimate MOD DEC, Plt Morphology Comment LARGE, Sodium 139, Potassium 4.4, Chloride 109 H, Carbon Dioxide 19.2 L,Anion Gap 10, BUN 61 H, Creatinine 1.59 H, Estim Creat Clear Calc 58.66, Est GFR (MDRD) Non-Af 47 L, BUN/Creatinine Ratio 38.4 H, Glucose 158 H, Calcium 8.2 10/11/24 05:53: POC Glucose 146 H Micro: Microbiology 10/10/24 16:12 Blood Culture (Wb) - Venous Blood Culture - Preliminary 10/10/24 15:40 Blood Culture (Wb) - Venous Blood Culture - Preliminary 10/10/24 16:00 Mucosa - Nose SARS-CoV-2, Influenza & RSV (PCR) - Final Radiography Diagnostic Testing: Radiology Impression Chest X-Ray 10/10/24 17:00 IMPRESSION: No Acute Findings. Reading [facility] Abdomen/Pelvis CT 10/10/24 17:35 IMPRESSION: 1. No acute abdominopelvic finding. 2. Right inguinal hernia containing a portion of the urinary bladder, unchanged since prior examination. The urinary bladder is decompressed by indwelling Martines catheter. 3. Stable large lower pole renal exophytic mass with left adrenal nodule. This is incompletely evaluated by noncontrast examination, however findings are most compatible with renal neoplasm such as renal cell carcinoma.Correlation with outpatient nonemergent CT or MRI abdomen (renal protocol) should be performed for further evaluation. 4. Mild splenomegaly. 5. Clustered nodularity within the left lower lobe, which may be represent infectious/inflammatory etiology such best aspiration pneumonia. Reading Location: [facility] Physical Exam Narrative GENERAL: Significantly flat affect HEENT: Atraumatic; normocephalic EYES; Anicteric, Normal Conjunctiva NECK; supple, normal thyroid, RESPIRATORY: Diminished to auscultation CARDIOVASCULAR: Regular S1 S2, GI: soft, normoactive bowel sounds, : No Renal angle tenderness; EXTREMITIES: No edema, no clubbing, MUSCULOSKELETAL: no muscle wasting NEURO: Awake; no lateralizing signs. SKIN: No Rash PSYCH; Flat affect Assessment & Plan Assessment/Plan (1) Sepsis: (2) UTI (urinary tract infection): PLAN: Plan Patient is a 69-year-old gentleman who was admitted with lower abdominal pain aswell as penile painin the setting of an indwelling Martines catheter. An assessment of sepsis was made admitted to regular nursing floor for further management 1. Sepsis ? Secondary to acute cystitis secondary to presence of an indwelling Martines catheter. Patient was managed with protocol with IV fluid resuscitation, cultures including urine and blood and antibiotic therapy. Response to therapy monitored with serial lactic acid levels 2. Hematuria ? Present on admission secondary to acute cystitis. 3. Acute kidney injury ? Patient patient has a baseline creatinine 1.08 creatinine on admission was 2.06 patient started on IV fluids with subsequent monitoring of electrolyte 4. Dyslipidemia ?Patient is on statin therapy, continued at home dose 5. Hypertension ? Blood pressure controlled, home medications continued with dose adjustment as needed 6. Diabetes mellitus type II -patient's oral hypoglycemics held. Placed on long acting insulin, Accu-Cheks a.c. and at bedtime and covered with sliding scale insulin 8. BPH ? With obstructive symptoms patient is on Flomax in addition to chronic indwelling Martines catheter 8. History of previous DVT ? Patient is on apixaban which was held on admission given hematuria 9. Paroxysmal atrial fibrillation/flutter ? Rate controlled on systemic anticoagulation with apixaban which is currently being held given reasons above 10. Class III obesity with BMI of 42.5 ? Complicating care weight loss advised 11. COPD ? Currently not in exacerbation aerosol treatments as needed 12. Left renal mass CT obtained did show stable large lower pole renal exophytic mass with left adrenal nodule. This isincompletely evaluated by noncontrast examination, however findings are most compatible with renal neoplasm such as renal cell carcinoma.Consult placed to urology 13. Obstructive sleep apnea ? Patient is on CPAP 15. Mood disorder not specified ? Patient is on lurasidone 16. Peripheral vascular disease ? Patient is on aspirin atorvastatin and apixaban 17. DVT prophylaxis ? Patient is on apixaban which is currently being held given hematuria plan is to resume once hematuria resolved Time spent in the patient's overall evaluation,decision-making process, review of diagnostic data, adjustment of management, discussion with other providers, nursing nursing and ancillary staff involved in patient's care documentation, 52minutes Charges/Coding Visit Charges Inpatient E&M: 14521 Subs Hosp 10/11/24 1101 Cosigner Signature (if applicable): CC: ~ Signed [facility]04-02-2025 Discharge summary Author Kurtis Monteiro [facility] Note Date/Time October 10, 2024 10:3 3pm [facility] Medical Records Department [address] [place] [address] Emergency Department Summary 10/10/24 MR#: [id number] Acct: [id number] Name: JADON ALVAREZ Rep #:[id number] 1 : 1955 69 From: Kurtis Monteiro MD PCP: Kathleen Herzog MD Status:ADM IN Location: [address] History of Present Illness Chief Complaint: Complaint Narrative Narrative: 69-year-old male past medical history of chronic indwelling Martines catheter, states that he has had abdominal and penile pain for the last 2 to 3 days. He states that his catheter was exchanged a few days ago because it changed about once a month. He states that he has been having pain ever since along with dry mouth. However, according to the squad sheet, Martines catheter replacement was today and is now bloody. He also had elevated temperature as well. [facility] Medical History MRSA (methicillin resistant staph aureus) culture positive Lives in alf Wears dentures Depression Anxiety Walker as ambulation aid Ambulates with cane Headache Shortness of breath on exertion Cardiology follow-up encounter History of renal disease Insulin dependent diabetes mellitus Pressure ulcer Abscess Indwelling urethral catheter present Acute painful diabetic polyneuropathy Cancer Former smoker CPAP (continuous positive airway pressure) dependence On home oxygen therapy Pulmonary embolism COPD (chronic obstructive pulmonary disease) Myocardial infarct DVT (deep venous thrombosis) Anemia Ulcer with necrosis of muscle Lymphedema of left lower extremity Lymphedema of right lower extremity Edema of left lower leg Edema of right lower leg Left leg swelling Right leg swelling Chronic venous insufficiency Non-pressure ulcer of right lower extremity with necrosis of muscle BPH (benign prostatic hyperplasia) Atrial fibrillation Blood loss anemia Hypertension Hiatal hernia Diverticulosis Debility Morbid obesity with BMI of 40.0-44.9, adult Impaired mobility SOB (shortness of breath) Heart murmur Heart failure 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 2 diabetes mellitus Aortic valve disease Renal mass, left History of DVT (deep vein thrombosis) Valvular heart disease Atrial fibrillation/flutter Chronic acquired lymphedema Chronic anemia Venous insufficiency (chronic) (peripheral) Ulcer of left lower extremity with fat layer exposed Superficial thrombosis of left lower extremity Peripheral vascular disease of lower extremity with ulceration Sleep apnea Morbid obesity DM2 (diabetes mellitus, type 2) Benign essential HTN Home Medications ?Medication ?Instructions ?Recorded ?Last Taken ?Type aspirin 81 mg tablet,delayed 81 mg PO DAILY AFIB 03/17 Unknown History release amlodipine 5 mg tablet 5 mg PO DAILY AFIB 10/28/23 Unknown History apixaban 5 mg tablet (Eliquis) 5 mg PO BID AFIB Unknown History atorvastatin 20 mg tablet 20 mg PO QHS HYPERLIPIDEMIA 10/28/23 Unknown History melatonin 3 mg tablet 6 mg PO QHS INSOMNIA 4 Unknown History tamsulosin 0.4 mg capsule 0.4 mg PO QHS PROSTATIC HYPE RPLASIA 12/22/23 Unknown History acetaminophen 325 mg tablet 650 mg PO Q4H PRN pain Unknown History (Tylenol) cyanocobalamin (vitamin B-12) 500 mcg PO DAILY 4 Unknown History 1,000 mcg capsule insulin glargine 100 unit/mL (3 23 unit subcut QHS Unknown History mL) subcutaneous pen (Lantus Solostar U-100 Insulin) donepezil 5 mg tablet 5 mg PO QHS MEMORY 08/16/24 Unknown History gabapentin 100 mg capsule 200 mg PO TID NEUROPATHY 12/03 Unknown History insulin lispro 100 unit/mL See Protocol subcut TID 12/03 Unknown History subcutaneous pen (Humalog KwikPen (U-100) Insulin) lurasidone 40 mg tablet 40 mg PO QHS MOOD 08/16/24 U nknown History potassium chloride 10 mEq 10 meq PO BID 08/16/24 Unkno wn History capsule,extended release torsemide 20 mg tablet 20 mg PO BID HEART 08/16/24 Unknown History budesonide-formoterol HFA 160 1 puff inhalation DAILY COPD 09/16/24 Unknown H istory mcg-4.5 mcg/actuation aerosol inhaler (Symbicort) lactulose 20 gram/30 mL oral 30 ml PO DAILY CONSTIPATI ON 09/16/24 Unknown History solution trazodone 100 mg tablet 100 mg PO QHS insomnia 09/16 Unknown History Allergy/AdvReac Type Severity Reaction Status Date / Time ibuprofen (From Nuprin) Allergy Unknown Verified 10/10/24 15:27 Family History Mother Diabetes Father Cirrhosis of liver Alcoholism Surgical History History of incision and drainage History of embolic filter insertion History of right inguinal hernia repair H/O colectomy History of repair of inguinal hernia History of bladder surgery History of tonsillectomy and adenoidectomy History of right inguinal hernia repair S/P AVR (aortic valve replacement) Social History housing: alf Smoking Status: Former smoker how long ago did patient quit smoking: Quit ~ 20 yrs prior, smoked age 15 untilquit ~ 2 ppd. alcohol intake: never substance use type: does not use ROS ROS ED ROS Narrative Constitutional: Reported fever, no chills. Cardiovascular: No chest pain. No palpitations. No pedal edema. Respiratory: No cough, no shortness of breath. Abdominal: Suprapubic abdominal pain. No nausea. No vomiting. Genitourinary: No dysuria. Positive hematuria. Positive penile pain. Musculoskeletal: No myalgias. No arthralgias. Neurologic: No headaches. No dizziness. No lightheadedness. Skin: No rash. No change in color. Psychiatric: No depression. No anxiety. EXAM Physical Exam Narrative Exam Narrative: Elevated temperature 101.3 ?F. Cardiovascular examination reveals mild tachycardia. Lungs clear to auscultation bilaterally. Abdomen is soft with mild tenderness to palpation in the suprapubic area without guarding or rebound. Positive Martines catheter in place draining bloody urine in the bag, with yellow urine in tubing. Neurological examination shows him to be awake, alert, and interactive. Const Vital Signs: 10/10/24 15:24 10/10/24 16:04 10/10/24 16:27 Temperature 101.3 F H 102.1 F H Temperature Source Oral Core Pulse Rate 110 H 95 Respiratory Rate 28 H 28 H Blood Pressure 103/66 103/66 Blood Pressure Mean 78 78 Pulse Ox 98 96 96 Oxygen Delivery Method Room Air Room Air Room Air 10/10/24 17:25 Temperature 101.6 F H Temperature Source Pulse Rate 95 Respiratory Rate 28 H Blood Pressure 119/70 Blood Pressure Mean 86 Pulse Ox 96 Oxygen Delivery Method Sepsis Attestation Sepsis Alert: Yes Sepsis Attestation: Agree w/Sepsis Date exam was performed: 10/10/24 Time exam was performed: 17:18 Possible Source of Sepsis: Genitourinary Sepsis Organ Dysfunction Criteria Present: Creatinine > 2.0 mg/dL, Platelets <100,000 / uL and Lactic Acid > 2 mmol/L Fluid Resuscitation Fluid Resuscitation ordered: Fluids not indicated Reason for lesser fluid bolus:: BP Responded to a lesser volume and Other (Patient maintained blood pressure with good MAP. Could be more dehydration.) MDM MDM MDM Narrative Medical decision making narrative: Given his fever, as well as bloody urine, differential diagnosis does include sepsis from UTI versus traumatic Martines exchange versus pneumonia versus other upper respiratory infection type symptoms. Patient will be given Tylenol for his fever and sepsis workup pursued. In review of his laboratory work, patient neutropenic at 3.7 with hemoglobin stable at 11.7 with hematocrit 35.8, platelet count low at 59. When compared [facility] laboratories, he has been thrombocytopenic at 147 previously, but appears to be pancytopenic currently. INR normal at 1.6, BUN elevated at 69 with creatinine 2.06. He has had slight elevations in the past but this is more of an acute kidney injury. Lactic acid elevated at 3.7, AST slightly elevated 53 which I think is nonspecific. In review of his urinalysis, there are greater than 100 RBCs with only 5-10 WBCs but 2+ bacteria. This was sent for culture. I suspect that given his fever and neutropenia, that source of sepsis may be from his urine. He was started on Maxipime given his chronic indwelling Martines catheter. I reviewed his respiratory swab it is negative for COVID, influenza, and RSV. Chest x-ray interpreted by myself independently shows no discrete consolidation, but there may be perihilar fullness. I reviewed the radiology report which confirms that there is no acute consolidation. EKG was also obtained and interpreted by myself independently as normal sinus rhythm at 99 bpm without ectopy or acute ST changes. No STEMI. I did review the patient's DNR order and he is DO NOT RESUSCITATE Comfort Care arrest with no intubation. Although he states he prefers to return to the [facility] facility, given his lactic acidosis, and pancytopenia, I do feelthat he requires admission for further IV antibiotics. Patient discussed with the hospitalist for admission. I was able to discuss patient with Dr. Garcias, who wanted a CT of the abdomen and pelvis without contrast. This was ordered and she will check the results. Disposition is admit to the PCU in stable condition. History & Record Review Discussion w/independent historian: Patient Additional record(s) reviewed:: Prior labs Lab Data Attestation: I reviewed the patient's lab results. Labs: Laboratory Results - last 24 hr 10/10/24 10/10/24 15:40 16:15 WBC 3.7 L RBC 4.20 L Hgb 11.7 L Hct 35.8 L MCV 85.2 MCH 27.9 MCHC 32.7 RDW Std Deviation 51.7 H RDW Coeff of Carlito 16.7 H Plt Count 59 L MPV TNP Immature Gran % (Auto) 0.300 Neut % (Auto) 87.7 H Lymph % (Auto) 6.7 L Stoddard % (Auto) 3.2 Eos % (Auto) 0.0 Baso % (Auto) 2.1 H Absolute Neuts (auto) 3.3 Absolute Lymphs (auto) 0.25 L Nucleated RBC % 0 Differential Comment SCANNED PT 19.6 H INR 1.6 APTT 35.3 Sodium 138 Potassium 4.5 Chloride 104 Carbon Dioxide 20.3 L Anion Gap 14 BUN 69 H Creatinine 2.06 H Estim Creat Clear Calc 45.27 L Est GFR (MDRD) Non-Af 34 L BUN/Creatinine Ratio 33.3 H Glucose 178 H Lactic Acid 3.7 H* Calcium 9.0 Total Bilirubin 0.61 AST 53 H ALT 33 Alkaline Phosphatase 105 Total Protein 6.6 Albumin 3.1 L Globulin 3.5 Albumin/Globulin Ratio 0.9 Urine Color Red Urine Clarity Cloudy Urine pH 9.0 Ur Specific Crouse 1.015 Urine Protein 500 H Urine Glucose (UA) Normal Urine Ketones Negative Urine Occult Blood 250 H Urine Nitrite Negative Urine Bilirubin Negative Urine Urobilinogen Normal Ur Leukocyte Esterase 500 H Urine RBC > 100 SEEN Urine WBC 5-10 SEEN Ur Squamous Epith Cells 0 SEEN Urine Bacteria 2+ Urine Mucus 0 SEEN Radiography Chest X-Ray - ED: 1 View, Read by ED Physician, Read by Radiologist and Normal Diagnostic Testing: Clinical Impression(s) from Imaging Studies Chest X-Ray 10/10/24 17:00 IMPRESSION: No Acute Findings. Reading [facility] Ab[facility]/Pelvis CT 10/10/24 17:35 IMPRESSION: 1. No acute abdominopelvic finding. 2. Right inguinal hernia containing a portion of the urinary bladder, unchanged since prior examination. The urinary bladder is decompressed by indwelling Martines catheter. 3. Stable large lower pole renal exophytic mass with left adrenal nodule. This is incompletely evaluated by noncontrast examination, however findings are most compatible with renal neoplasm such as renal cell carcinoma. Correlation with outpatient nonemergent CT or MRI abdomen (renal protocol) should be performed for further evaluation. 4. Mild splenomegaly. 5. Clustered nodularity within the left lower lobe, which may be represent infectious/inflammatory etiology such best aspiration pneumonia. Reading Location: [facility] Discharge Plan Dx/Rx/DC Orders Clinical Impression: Pancytopenia, Sepsis, UTI (urinary tract infection), Martines catheter problem Disposition Disposition: Acute Care [facility] Discharge Date/Time: 10/10/24 18:20 What to do if you have Problems For any increased pain, shortness of breath, bleeding, nausea or vomiting, chestpain, or any unexpected problems, contact your Primary Care Provider. Call [facility] ([phone]) or report to the closest Emergency Room. Call 911 if necessary. 10/10/242232 <Electronically signed by Kurtis Monteiro MD> Cosigner Signature (if applicable): CC: Kathleen Herzog MD ~ Signed [facility] Work Phone: [phone] Discharge summary [facility] Medical Records Department [address] [place] [address] Emergency Department Summary 10/10/24 MR#: [id number] Acct: [id number] Name: JADON ALVAREZ Rep #:[id number] 1 : 1955 69 From: Kurtis Monteiro MD PCP: Kathleen Herzog MD Status:ADM IN Location: [address] History of Present Illness Chief Complaint: Complaint Narrative Narrative: 69-year-old male past medical history of chronic indwelling Martines catheter, states that he has had abdominal and penile pain for the last 2 to 3 days. He states that his catheter was exchanged a few days ago because it changed about once a month. He states that he has been having pain ever since along with dry mouth. However, according to the squad sheet, Martines catheter replacement was today and is now bloody. He also had elevated temperature as well. [facility] Medical History MRSA (methicillin resistant staph aureus) culture positive Lives in alf Wears dentures Depression Anxiety Walker as ambulation aid Ambulates with cane Headache Shortness of breath on exertion Cardiology follow-up encounter History of renal disease Insulin dependent diabetes mellitus Pressure ulcer Abscess Indwelling urethral catheter present Acute painful diabetic polyneuropathy Cancer Former smoker CPAP (continuous positive airway pressure) dependence On home oxygen therapy Pulmonary embolism COPD (chronic obstructive pulmonary disease) Myocardial infarct DVT (deep venous thrombosis) Anemia Ulcer with necrosis of muscle Lymphedema of left lower extremity Lymphedema of right lower extremity Edema of left lower leg Edema of right lower leg Left leg swelling Right leg swelling Chronic venous insufficiency Non-pressure ulcer of right lower extremity with necrosis of muscle BPH (benign prostatic hyperplasia) Atrial fibrillation Blood loss anemia Hypertension Hiatal hernia Diverticulosis Debility Morbid obesity with BMI of 40.0-44.9, adult Impaired mobility SOB (shortness of breath) Heart murmur Heart failure 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 2 diabetes mellitus Aortic valve disease Renal mass, left History of DVT (deep vein thrombosis) Valvular heart disease Atrial fibrillation/flutter Chronic acquired lymphedema Chronic anemia Venous insufficiency (chronic) (peripheral) Ulcer of left lower extremity with fat layer exposed Superficial thrombosis of left lower extremity Peripheral vascular disease of lower extremity with ulceration Sleep apnea Morbid obesity DM2 (diabetes mellitus, type 2) Benign essential HTN Home Medications ?Medication ?Instructions ?Recorded ?Last Taken ?Type aspirin 81 mg tablet,delayed 81 mg PO DAILY AFIB 03/17 Unknown History release amlodipine 5 mg tablet 5 mg PO DAILY AFIB 10/28/23 Unknown History apixaban 5 mg tablet (Eliquis) 5 mg PO BID AFIB Unknown History atorvastatin 20 mg tablet 20 mg PO QHS HYPERLIPIDEMIA 10/28/23 Unknown History melatonin 3 mg tablet 6 mg PO QHS INSOMNIA 4 Unknown History tamsulosin 0.4 mg capsule 0.4 mg PO QHS PROSTATIC HYPE RPLASIA 12/22/23 Unknown History acetaminophen 325 mg tablet 650 mg PO Q4H PRN pain Unknown History (Tylenol) cyanocobalamin (vitamin B-12) 500 mcg PO DAILY 4 Unknown History 1,000 mcg capsule insulin glargine 100 unit/mL (3 23 unit subcut QHS Unknown History mL) subcutaneous pen (Lantus Solostar U-100 Insulin) donepezil 5 mg tablet 5 mg PO QHS MEMORY 08/16/24 Unknown History gabapentin 100 mg capsule 200 mg PO TID NEUROPATHY 12/03 Unknown History insulin lispro 100 unit/mL See Protocol subcut TID 12/03 Unknown History subcutaneous pen (Humalog KwikPen (U-100) Insulin) lurasidone 40 mg tablet 40 mg PO QHS MOOD 08/16/24 U nknown History potassium chloride 10 mEq 10 meq PO BID 08/16/24 Unkno wn History capsule,extended release torsemide 20 mg tablet 20 mg PO BID HEART 08/16/24 Unknown History budesonide-formoterol HFA 160 1 puff inhalation DAILY COPD 09/16/24 Unknown H istory mcg-4.5 mcg/actuation aerosol inhaler (Symbicort) lactulose 20 gram/30 mL oral 30 ml PO DAILY CONSTIPATI ON 09/16/24 Unknown History solution trazodone 100 mg tablet 100 mg PO QHS insomnia 09/16 Unknown History Allergy/AdvReac Type Severity Reaction Status Date / Time ibuprofen (From FTBpro) Allergy Unknown Verified 10/10/24 15:27 Family History Mother Diabetes Father Cirrhosis of liver Alcoholism Surgical History History of incision and drainage History of embolic filter insertion History of right inguinal hernia repair H/O colectomy History of repair of inguinal hernia History of bladder surgery History of tonsillectomy and adenoidectomy History of right inguinal hernia repair S/P AVR (aortic valve replacement) Social History housing: alf Smoking Status: Former smoker how long ago did patient quit smoking: Quit ~ 20 yrs prior, smoked age 15 untilquit ~ 2 ppd. alcohol intake: never substance use type: does not use ROS ROS ED ROS Narrative Constitutional: Reported fever, no chills. Cardiovascular: No chest pain. No palpitations. No pedal edema. Respiratory: No cough, no shortness of breath. Abdominal: Suprapubic abdominal pain. No nausea. No vomiting. Genitourinary: No dysuria. Positive hematuria. Positive penile pain. Musculoskeletal: No myalgias. No arthralgias. Neurologic: No headaches. No dizziness. No lightheadedness. Skin: No rash. No change in color. Psychiatric: No depression. No anxiety. EXAM Physical Exam Narrative Exam Narrative: Elevated temperature 101.3 ?F. Cardiovascular examination reveals mild tachycardia. Lungs clear to auscultation bilaterally. Abdomen is soft with mild tenderness to palpation in the suprapubic area without guarding or rebound. Positive Martines catheter in place draining bloody urine in the bag, with yellow urine in tubing. Neurological examination shows him to be awake, alert, and interactive. Const Vital Signs: 10/10/24 15:24 10/10/24 16:04 10/10/24 16:27 Temperature 101.3 F H 102.1 F H Temperature Source Oral Core Pulse Rate 110 H 95 Respiratory Rate 28 H 28 H Blood Pressure 103/66 103/66 Blood Pressure Mean 78 78 Pulse Ox 98 96 96 Oxygen Delivery Method Room Air Room Air Room Air 10/10/24 17:25 Temperature 101.6 F H Temperature Source Pulse Rate 95 Respiratory Rate 28 H Blood Pressure 119/70 Blood Pressure Mean 86 Pulse Ox 96 Oxygen Delivery Method Sepsis Attestation Sepsis Alert: Yes Sepsis Attestation: Agree w/Sepsis Date exam was performed: 10/10/24 Time exam was performed: 17:18 Possible Source of Sepsis: Genitourinary Sepsis Organ Dysfunction Criteria Present: Creatinine > 2.0 mg/dL, Platelets <100,000 / uL and Lactic Acid > 2 mmol/L Fluid Resuscitation Fluid Resuscitation ordered: Fluids not indicated Reason for lesser fluid bolus:: BP Responded to a lesser volume and Other (Patient maintained bloodpressure with good MAP. Could be more dehydration.) MDM MDM MDM Narrative Medical decision making narrative: Given his fever, as well as bloody urine, differential diagnosis does include sepsis from UTI versus traumatic Martines exchange versus pneumonia versus other upper respiratory infection type symptoms. Patient will be given Tylenol for his fever and sepsis workup pursued. In review of his laboratory work, patient neutropenic at 3.7 with hemoglobin stable at 11.7 with hematocrit 35.8, platelet count low at 59. [facility], he has been thrombocytopenic at 147 previously, but appears to be pancytopenic currently. INR normal at 1.6, BUN elevated at 69 with creatinine 2.06. He has had slight elevations in the past but this is more of an acute kidney injury. Lactic acid elevated at 3.7, AST slightly elevated 53 which I think is nonspecific. In review of his urinalysis, there are greater than 100 RBCs with only 5-10 WBCs but 2+ bacteria. This was sent for culture. I suspect that given his fever and neutropenia, that source of sepsis may be from his urine. He was started on Maxipime given his chronic indwelling Martines catheter. I reviewed hisrespiratory swab it is negative for COVID, influenza, and RSV. Chest x-ray interpreted by myself independently shows no discrete consolidation, but there may be perihilar fullness. I reviewed the radiology report which confirms that there is no acute consolidation. EKG was also obtained and interpreted by myself independently as normal sinus rhythm at 99 bpm without ectopy or acute ST changes. NoSTEMI. I did review the patient's DNR order and he is DO NOT RESUSCITATE Comfort Care arrest with no intubation. Although he states he prefers to return to the [facility] facility, given his lactic acidosis, and pancytopenia, I do feelthat he requires admission for further IV antibiotics. Patient discussed with the hospitalist for admission. I was able to discuss patient with Dr. Garcias, who wanted a CT of the abdomen and pelvis without contrast. This was ordered and she will check the results. Disposition is admit to the PCU in stable condition. History & Record Review Discussion w/independent historian: Patient Additional record(s) reviewed:: Prior labs Lab Data Attestation: I reviewed the patient's lab results. Labs: Laboratory Results - last 24 hr 10/10/24 10/10/24 15:40 16:15 WBC 3.7 L RBC 4.20 L Hgb 11.7 L Hct 35.8 L MCV 85.2 MCH 27.9 MCHC 32.7 RDW Std Deviation 51.7 H RDW Coeff of Calrito 16.7 H Plt Count 59 L MPV TNP Immature Gran % (Auto) 0.300 Neut % (Auto) 87.7 H Lymph % (Auto) 6.7 L Stoddard % (Auto) 3.2 Eos % (Auto) 0.0 Baso % (Auto) 2.1 H Absolute Neuts (auto) 3.3 Absolute Lymphs (auto) 0.25 L Nucleated RBC % 0 Differential Comment SCANNED PT 19.6 H INR 1.6 APTT 35.3 Sodium 138 Potassium 4.5 Chloride 104 Carbon Dioxide 20.3 L Anion Gap 14 BUN 69 H Creatinine 2.06 H Estim Creat Clear Calc 45.27 L Est GFR (MDRD) Non-Af 34 L BUN/Creatinine Ratio 33.3 H Glucose 178 H Lactic Acid 3.7 H* Calcium 9.0 Total Bilirubin 0.61 AST 53 H ALT 33 Alkaline Phosphatase 105 Total Protein 6.6 Albumin 3.1 L Globulin 3.5 Albumin/Globulin Ratio 0.9 Urine Color Red Urine Clarity Cloudy Urine pH 9.0 Ur Specific Crouse 1.015 Urine Protein 500 H Urine Glucose (UA) Normal Urine Ketones Negative Urine Occult Blood 250 H Urine Nitrite Negative Urine Bilirubin Negative Urine Urobilinogen Normal Ur Leukocyte Esterase 500 H Urine RBC > 100 SEEN Urine WBC 5-10 SEEN Ur Squamous Epith Cells 0 SEEN Urine Bacteria 2+ Urine Mucus 0 SEEN Radiography Chest X-Ray - ED: 1 View, Read by ED Physician, Read by Radiologist and Normal Diagnostic Testing: Clinical Impression(s) from Imaging Studies Chest X-Ray 10/10/24 17:00 IMPRESSION: No Acute Findings. [facility]Pelvis CT 10/10/24 17:35 IMPRESSION: 1. No acute abdominopelvic finding. 2. Right inguinal hernia containing a portion of the urinary bladder, unchanged since prior examination. The urinary bladder is decompressed by indwelling Martines catheter. 3. Stable large lower pole renal exophytic mass with left adrenal nodule. This is incompletely evaluated by noncontrast examination, however findings are most compatible with renal neoplasm such as renal cell carcinoma.Correlation with outpatient nonemergent CT or MRI abdomen (renal protocol) should be performed for further evaluation. 4. Mild splenomegaly. 5. Clustered nodularity within the left lower lobe, which may be represent infectious/inflammatory etiology such best aspiration pneumonia. Reading Location: [id number] Discharge Plan Dx/Rx/DC Orders Clinical Impression: Pancytopenia, Sepsis, UTI (urinary tract infection), Martines catheter problem Disposition Disposition: Acute Care [facility] Discharge Date/Time: 10/10/24 18:20 What to do if you have Problems For any increased pain, shortness of breath, bleeding, nausea or vomiting, chestpain, or any unexpected problems, contact your Primary Care Provider. Call [facility] ([phone]) or report tothe closest Emergency Room. Call 911 if necessary. 10/10/242232 Cosigner Signature (if applicable): CC: Kathleen Herzog MD ~ Signed [facility]04-01-2025 History and physical note Author Monika Garcias [facility] Note Date/Time October 10, 2024 7:50 pm [facility] Medical Records Department [address] [facility] [place] [address] H&P Exam - Hospitalist 10/10/24 1730 MR#: [id number] Acct: [id number] Name: JADON ALVAREZ Rep #:[id number] 2 : 1955 69 From: Monika Garcias MD PCP: Kathleen Herzog MD Status:ADM IN Location: [place] [address] HPI - General General Date of Admission: 10/10/24 Date of Service: 10/10/24 Chief Complaint: abdominal and penile pain HPI Narrative JADON ALVAREZ, is a 69 M with a PMH as outlined who presents via the ED on 10/10/2024 with a complaint of abdominal and penile pain which had been going on for ~ 2-3 days prior to admission. He has a chronic indwelling martines catheter and says it was changed a few days ago. He usually gets it changed once a month.He denied any fever or chills, and his urine was now bloody. He denied any chestpain, palpitations, dizziness, nausea, vomiting or any other symptoms. Review ofsystems was otherwise negative. Vitals in the ED were BP of 119/70, [place] of 95, RR of 28 and temp of 101.6F. He was saturating at 96% on room air. CBC showed Hb of 11.7, wbc of 3.7 and platelets of 59. INR was 1.6. Chemistry showed sodium of 138, potassium of 4.5 nad bicarb of 20.3. Cr is 2.06. lactic acid is 3.7. Urinalysis showed 5-10wbc and bacteria 2+. CXR showed no acute cardiopulmonary pathology. He is being admitted to be managed for sepsis due to UTI. I requested that the ED doctor order a CT of hte abdomen nad pelvis to rule out any obstructive uropathy causing the VALENTIN. CT of the abdomen and pelvis showed no acute abdominopelvic finding, and showed a stable large lower pole renal exophytic mass with left adrenal nodule, concerning for renal neoplasm. FORMERLY [facility], [facility] Medical History MRSA (methicillin resistant staph aureus) culture positive Lives in alf Wears dentures Depression Anxiety Walker as ambulation aid Ambulates with cane Headache Shortness of breath on exertion Cardiology follow-up encounter History of renal disease Insulin dependent diabetes mellitus Pressure ulcer Abscess Indwelling urethral catheter present Acute painful diabetic polyneuropathy Cancer Former smoker CPAP (continuous positive airway pressure) dependence On home oxygen therapy Pulmonary embolism COPD (chronic obstructive pulmonary disease) Myocardial infarct DVT (deep venous thrombosis) Anemia Ulcer with necrosis of muscle Lymphedema of left lower extremity Lymphedema of right lower extremity Edema of left lower leg Edema of right lower leg Left leg swelling Right leg swelling Chronic venous insufficiency Non-pressure ulcer of right lower extremity with necrosis of muscle BPH (benign prostatic hyperplasia) Atrial fibrillation Blood loss anemia Hypertension Hiatal hernia Diverticulosis Debility Morbid obesity with BMI of 40.0-44.9, adult Impaired mobility SOB (shortness of breath) Heart murmur Heart failure 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 2 diabetes mellitus Aortic valve disease Renal mass, left History of DVT (deep vein thrombosis) Valvular heart disease Atrial fibrillation/flutter Chronic acquired lymphedema Chronic anemia Venous insufficiency (chronic) (peripheral) Ulcer of left lower extremity with fat layer exposed Superficial thrombosis of left lower extremity Peripheral vascular disease of lower extremity with ulceration Sleep apnea Morbid obesity DM2 (diabetes mellitus, type 2) Benign essential HTN Home Medications ?Medication ?Instructions ?Recorded ?Last Taken ?Type aspirin 81 mg tablet,delayed 81 mg PO DAILY AFIB 03/17 Unknown History release amlodipine 5 mg tablet 5 mg PO DAILY AFIB 10/28/23 Unknown History apixaban 5 mg tablet (Eliquis) 5 mg PO BID AFIB Unknown History atorvastatin 20 mg tablet 20 mg PO QHS HYPERLIPIDEMIA 10/28/23 Unknown History melatonin 3 mg tablet 6 mg PO QHS INSOMNIA 4 Unknown History tamsulosin 0.4 mg capsule 0.4 mg PO QHS PROSTATIC HYPE RPLASIA 12/22/23 Unknown History acetaminophen 325 mg tablet 650 mg PO Q4H PRN pain Unknown History (Tylenol) cyanocobalamin (vitamin B-12) 500 mcg PO DAILY 4 Unknown History 1,000 mcg capsule insulin glargine 100 unit/mL (3 23 unit subcut QHS Unknown History mL) subcutaneous pen (Lantus Solostar U-100 Insulin) donepezil 5 mg tablet 5 mg PO QHS MEMORY 08/16/24 Unknown History gabapentin 100 mg capsule 200 mg PO TID NEUROPATHY 12/03 Unknown History insulin lispro 100 unit/mL See Protocol subcut TID 12/03 Unknown History subcutaneous pen (Humalog KwikPen (U-100) Insulin) lurasidone 40 mg tablet 40 mg PO QHS MOOD 08/16/24 U nknown History potassium chloride 10 mEq 10 meq PO BID 08/16/24 Unkno wn History capsule,extended release torsemide 20 mg tablet 20 mg PO BID HEART 08/16/24 Unknown History budesonide-formoterol HFA 160 1 puff inhalation DAILY COPD 09/16/24 Unknown History mcg-4.5 mcg/actuation aerosol inhaler (Symbicort) lactulose 20 gram/30 mL oral 30 ml PO DAILY CONSTIPATI ON 09/16/24 Unknown History solution trazodone 100 mg tablet 100 mg PO QHS insomnia 09/16 Unknown History Allergy/AdvReac Type Severity Reaction Status Date / Time ibuprofen (From Nuprin) Allergy Unknown Verified 10/10/24 15:27 Family History Mother Diabetes Father Cirrhosis of liver Alcoholism Surgical History History of incision and drainage History of embolic filter insertion History of right inguinal hernia repair H/O colectomy History of repair of inguinal hernia History of bladder surgery History of tonsillectomy and adenoidectomy History of right inguinal hernia repair S/P AVR (aortic valve replacement) Social History housing: alf Smoking Status: Former smoker how long ago did patient quit smoking: Quit ~ 20 yrs prior, smoked age 15 untilquit ~ 2 ppd. alcohol intake: never substance use type: does not use ROS ROS Narrative frail Constitutional Constitutional: Reports chills, fatigue, fever(s), malaise and weakness; Denies anorexia Eyes Eyes: Denies change in vision ENT HEENT: Denies dysphagia or headache(s) Cardiovascular Cardiovascular: Denies chest pain, dyspnea on exertion, edema, lightheadedness, orthopnea, palpitations, paroxysmal nocturnal dyspnea, rapid heart rate or syncope Respiratory/Chest Respiratory/Chest: Denies cough, dyspnea, shortness of breath at rest or shortness of breath with exertion Gastrointestinal Gastrointestinal: Reports abdominal pain; Denies constipation, diarrhea, dyspepsia, nausea or vomiting Genitourinary Genitourinary: Reports burning urination, difficulty urinating, dysuria, hematuria and urinary frequency; Denies urinary hesitancy Musculoskeletal Musculoskeletal: Denies arthralgias Neurologic Neurologic: Denies confusion, dizziness, focal weakness, headache(s) or numbness Psychiatric Psychiatric: Denies anxiety or depression Vital Signs Vital Signs Vital Signs: 10/10/24 15:24 10/10/24 16:04 10/10/24 16:27 Temperature 101.3 F H 102.1 F H Temperature Source Oral Core Pulse Rate 110 H 95 Respiratory Rate 28 H 28 H Blood Pressure 103/66 103/66 Blood Pressure Mean 78 78 Pulse Ox 98 96 96 Oxygen Delivery Method Room Air Room Air Room Air 10/10/24 17:25 Temperature 101.6 F H Temperature Source Pulse Rate 95 Respiratory Rate 28 H Blood Pressure 119/70 Blood Pressure Mean 86 Pulse Ox 96 Oxygen Delivery Method Weight Weight: 287 lb 7.724 oz Body Mass Index (BMI) 42.4 Physical Exam Const alert, oriented x3 and no apparent distress Constitutional Narrative: class III obesity. frail, flat affect. General Appearance: cooperative HEENT normocephalic, hearing grossly normal bilaterally, moist oral mucous membranes and oropharynx normal Mouth: oral and palatal mucosa normal Eyes PERRL and EOMs intact bilaterally Neck no lymphadenopathy and supple Resp normal respiratory effort, no retractions, no use of accessory muscles and clearto auscultation bilaterally Cardio regular rate, regular rhythm, S1 normal heart sound, S2 normal heart sound and no murmurs GI normal to inspection, nondistended, normoactive bowel sounds, soft to palpation,non-tender, non-distended and hepatosplenomegaly Extremity normal to inspection, full ROM and no clubbing, cyanosis or edema Neuro oriented x3, CN's II-XII intact bilaterally, moves all extremities and no focal motor deficits Sensorium / Orientation: awake and alert Motor Exam: strength 5/5 throughout Psych affect normal Results Lab / Micro Data 10/10/24 15:40 10/10/24 15:40 Labs: Laboratory Results - last 24 hr 10/10/24 15:40: WBC 3.7 L, RBC 4.20 L, Hgb 11.7 L, Hct 35.8 L, MCV 85.2, MCH 27.9, MCHC 32.7, RDW Std Deviation 51.7 H, RDW Coeff of Carlito 16.7 H, Plt Count 59L, MPV TNP, Immature Gran % (Auto) 0.300, Neut % (Auto) 87.7 H, Lymph % (Auto) 6.7 L, Stoddard % (Auto) 3.2, Eos % (Auto) 0.0, Baso % (Auto) 2.1 H, Absolute Neuts (auto) 3.3, Absolute Lymphs (auto) 0.25 L, Nucleated RBC % 0, Differential Comment SCANNED, PT 19.6 H, INR 1.6, APTT 35.3, Sodium 138, Potassium 4.5, Chloride 104, Carbon Dioxide 20.3 L, Anion Gap 14, BUN 69 H, Creatinine 2.06 H, Estim Creat Clear Calc 45.27 L, Est GFR (MDRD) Non-Af 34 L, BUN/Creatinine Ratio33.3 H, Glucose 178 H, Lactic Acid 3.7 H*, Calcium 9.0, Total Bilirubin 0.61, AST 53 H, ALT 33, Alkaline Phosphatase 105, Total Protein 6.6, Albumin 3.1 L, Globulin 3.5, Albumin/Globulin Ratio 0.9 10/10/24 16:15: Urine Color Red, Urine Clarity Cloudy, Urine pH 9.0, Ur SpecificGravity 1.015, Urine Protein 500 H, Urine Glucose (UA) Normal, Urine Ketones Negative, Urine Occult Blood 250 H, Urine Nitrite Negative, Urine Bilirubin Negative, Urine Urobilinogen Normal, Ur Leukocyte Esterase 500 H, Urine RBC > 100 SEEN, Urine WBC 5-10 SEEN, Ur Squamous Epith Cells 0 SEEN, Urine Bacteria 2+, Urine Mucus 0 SEEN Micro: Microbiology 10/10/24 16:00 Mucosa - Nose SARS-CoV-2, Influenza & RSV (PCR) - Final Assessment & Plan Assessment/Plan (1) Sepsis: (2) UTI (urinary tract infection): PLAN: Plan #Sepsis due to UTI * admit to PCU * patient was admitted with a complaint of lower abdominal pain and penile pain. Has indwelling martines catheter which was changed a few days ago. Is usually changed monthly * urinalysis showed 2+ bacteria. Also had hematuria * lactic acid elevated at 3.7. * start on IV cefepime. Get urine and blood cultures * CT abdomen and pelvis without contrast showed a 5.6 cm exophytic enhancing left renal mass and a 6 mm slightly dense exophytic left renal cystic lesion which are concerning for malignancy. It also showed a 1.6 cm indeterminate left adrenal nodule. * hydrate with IVF NS @ 125cc/hr x 2 bags * #UTI: as above #Left renal mass * CT as above. This is similar to prior CT of the abdomen and pelvis from 09/16/2024. There is no urology notes documented in the EMR but patient says he is aware of this mass. It is not clear whether he has followed up with urology has had treatment for it. * Since this is not acute, he will benefit from follow-up with urology on outpatient basis. * #VALENTIN: * Cr is 2.06, with baseline Cr of 1.08. Cr was 1.46 on 09/16/2024 * may be pre-renal due to sepsis, though in light of indwelling martines catheter, an obstructive uropathy cannot be ruled out * hydrate with IVF and trend CR * If Cr continues to trend upwards, to consider nephrology input. * CT abdomen and pelvis as above * #Hypertension: on amlodipine. Hold torsemide due to VALENTIN. #Hyperlipidemia: on statin #Dementia: on donepezil. #Type 2 diabetes mellitus: on lantus 23 units qhs. ISS. Accuchecks ACHS. #BPH with obstructive symptoms * has chronic indwelling martines catheter as mentioned above * on flomax * DVT prophylaxis: SCDs. NO anticoagulation due to hematuria Code status: DNRCCA with intubation * Documentation from alf showed that patient was DNR CCA with intubation. I asked patient this and he also confirmed this. Charges/Coding Visit Charges Inpatient E&M: 00347 Init Hosp L3 10/10/241925 <Electronically signed by Monika Garcias MD> Cosigner Signature (if applicable): CC: Dr. Monika Garcias MD; Kathleen Herzog MD~ Signed ADDENDUM by Dr. Monika Garcias MD on 10/10/24 at 1950 Addendum Pancytopenia * WBC is 3.7 with hemoglobin of 11.7. Platelets of 59. * This drop in platelets is quite precipitous as previous platelets from 09/16/2024 was 205. * likely due to sepsis. * blood thinners on hold for now. * will monitor. I expect it will likely improve as patient recovers from sepsis. If it persists, to consider hematology consult. 10/10/241949<Electronically signed by Monika Garcias MD> Cosigner Signature (if applicable): cc: Dr. Monika Garcias MD; Kathleen Herzog MD ~* Signed [facility] Work Phone: [phone] 677-154304-01-2025 History and physical note [facility] Medical Records Department [address] [place] [id number] H&P Exam - Hospitalist 10/10/24 1730 MR#: [id number] Acct: [id number] Name: JADON ALVAREZ Rep #:[id number] 2 : 1955 69 From: Monika Garcias MD PCP: Kathleen Herzog MD Status:ADM IN Location: [facility] [id number] HPI - General General Date of Admission: 10/10/24 Date of Service: 10/10/24 Chief Complaint: abdominal and penile pain HPI Narrative JADON ALVAREZ, is a 69 M with a PMH as outlined who presents via the ED on 10/10/2024 with a complaint of abdominal and penile pain which had been going on for ~ 2-3 days prior to admission. He has achronic indwelling martines catheter and says it was changed a few days ago. He usually gets it changed once a month.He denied any fever or chills, and his urine was now bloody. He denied any chestpain,palpitations, dizziness, nausea, vomiting or any other symptoms. Review ofsystems was otherwise negative. Vitals in the ED were BP of 119/70, [place] of 95, RR of 28 and temp of 101.6F. He was saturating at 96%on room air. CBC showed Hb of 11.7, wbc of 3.7 and platelets of 59. INR was 1.6. Chemistry showed sodium of 138, potassium of 4.5 nad bicarb of 20.3. Cr is 2.06. lactic acid is 3.7. Urinalysis showed5-10wbc and bacteria 2+. CXR showed no acute cardiopulmonary pathology. He is being admitted to be managed for sepsis due to UTI. I requested that the ED doctor order a CT of hte abdomen nad pelvis to rule out any obstructive uropathy causing the VALENTIN. CT of the abdomen and pelvis showed no acute abdominopelvic finding, and showed a stable large lower pole renal exophytic mass with left adrenal nodule, concerning for renal neoplasm. FORMERLY [facility], [facility] Medical History MRSA (methicillin resistant staph aureus) culture positive Lives in alf Wears dentures Depression Anxiety Walker as ambulation aid Ambulates with cane Headache Shortness of breath on exertion Cardiology follow-up encounter History of renal disease Insulin dependent diabetes mellitus Pressure ulcer Abscess Indwelling urethral catheter present Acute painful diabetic polyneuropathy Cancer Former smoker CPAP (continuous positive airway pressure) dependence On home oxygen therapy Pulmonary embolism COPD (chronic obstructive pulmonary disease) Myocardial infarct DVT (deep venous thrombosis) Anemia Ulcer with necrosis of muscle Lymphedema of left lower extremity Lymphedema of right lower extremity Edema of left lower leg Edema of right lower leg Left leg swelling Right leg swelling Chronic venous insufficiency Non-pressure ulcer of right lower extremity with necrosis of muscle BPH (benign prostatic hyperplasia) Atrial fibrillation Blood loss anemia Hypertension Hiatal hernia Diverticulosis Debility Morbid obesity with BMI of 40.0-44.9, adult Impaired mobility SOB (shortness of breath) Heart murmur Heart failure 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 2 diabetes mellitus Aortic valve disease Renal mass, left History of DVT (deep vein thrombosis) Valvular heart disease Atrial fibrillation/flutter Chronic acquired lymphedema Chronic anemia Venous insufficiency (chronic) (peripheral) Ulcer of left lower extremity with fat layer exposed Superficial thrombosis of left lower extremity Peripheral vascular disease of lower extremity with ulceration Sleep apnea Morbid obesity DM2 (diabetes mellitus, type 2) Benign essential HTN Home Medications ?Medication ?Instructions ?Recorded ?Last Taken ?Type aspirin 81 mg tablet,delayed 81 mg PO DAILY AFIB 03/17 Unknown History release amlodipine 5 mg tablet 5 mg PO DAILY AFIB 10/28/23 Unknown History apixaban 5 mg tablet (Eliquis) 5 mg PO BID AFIB Unknown History atorvastatin 20 mg tablet 20 mg PO QHS HYPERLIPIDEMIA 10/28/23 Unknown History melatonin 3 mg tablet 6 mg PO QHS INSOMNIA 4 Unknown History tamsulosin 0.4 mg capsule 0.4 mg PO QHS PROSTATIC HYPE RPLASIA 12/22/23 Unknown History acetaminophen 325 mg tablet 650 mg PO Q4H PRN pain Unknown History (Tylenol) cyanocobalamin (vitamin B-12) 500 mcg PO DAILY 4 Unknown History 1,000 mcg capsule insulin glargine 100 unit/mL (3 23 unit subcut QHS Unknown History mL) subcutaneous pen (Lantus Solostar U-100 Insulin) donepezil 5 mg tablet 5 mg PO QHS MEMORY 08/16/24 Unknown History gabapentin 100 mg capsule 200 mg PO TID NEUROPATHY 12/03 Unknown History insulin lispro 100 unit/mL See Protocol subcut TID 12/03 Unknown History subcutaneous pen (Humalog KwikPen (U-100) Insulin) lurasidone 40 mg tablet 40 mg PO QHS MOOD 08/16/24 U nknown History potassium chloride 10 mEq 10 meq PO BID 08/16/24 Unkno wn History capsule,extended release torsemide 20 mg tablet 20 mg PO BID HEART 08/16/24 Unknown History budesonide-formoterol HFA 160 1 puff inhalation DAILY COPD 09/16/24 Unknown History mcg-4.5 mcg/actuation aerosol inhaler (Symbicort) lactulose 20 gram/30 mL oral 30 ml PO DAILY CONSTIPATI ON 09/16/24 Unknown History solution trazodone 100 mg tablet 100 mg PO QHS insomnia 09/16 Unknown History Allergy/AdvReac Type Severity Reaction Status Date / Time ibuprofen (From Nuprin) Allergy Unknown Verified 10/10/24 15:27 Family History Mother Diabetes Father Cirrhosis of liver Alcoholism Surgical History History of incision and drainage History of embolic filter insertion History of right inguinal hernia repair H/O colectomy History of repair of inguinal hernia History of bladder surgery History of tonsillectomy and adenoidectomy History of right inguinal hernia repair S/P AVR (aortic valve replacement) Social History housing: alf Smoking Status: Former smoker how long ago did patient quit smoking: Quit ~ 20 yrs prior, smoked age 15 untilquit ~ 2 ppd. alcohol intake: never substance use type: does not use ROS ROS Narrative frail Constitutional Constitutional: Reports chills, fatigue, fever(s), malaise and weakness; Denies anorexia Eyes Eyes: Denies change in vision ENT HEENT: Denies dysphagia or headache(s) Cardiovascular Cardiovascular: Denies chest pain, dyspnea on exertion, edema, lightheadedness, orthopnea, palpitations, paroxysmal nocturnal dyspnea, rapid heart rate or syncope Respiratory/Chest Respiratory/Chest: Denies cough, dyspnea, shortness of breath at rest or shortness of breath with exertion Gastrointestinal Gastrointestinal: Reports abdominal pain; Denies constipation, diarrhea, dyspepsia, nausea or vomiting Genitourinary Genitourinary: Reports burning urination, difficulty urinating, dysuria, hematuria and urinary frequency; Denies urinary hesitancy Musculoskeletal Musculoskeletal: Denies arthralgias Neurologic Neurologic: Denies confusion, dizziness, focal weakness, headache(s) or numbness Psychiatric Psychiatric: Denies anxiety or depression Vital Signs Vital Signs Vital Signs: 10/10/24 15:24 10/10/24 16:04 10/10/24 16:27 Temperature 101.3 F H 102.1 F H Temperature Source Oral Core Pulse Rate 110 H 95 Respiratory Rate 28 H 28 H Blood Pressure 103/66 103/66 Blood Pressure Mean 78 78 Pulse Ox 98 96 96 Oxygen Delivery Method Room Air Room Air Room Air 10/10/24 17:25 Temperature 101.6 F H Temperature Source Pulse Rate 95 Respiratory Rate 28 H Blood Pressure 119/70 Blood Pressure Mean 86 Pulse Ox 96 Oxygen Delivery Method Weight Weight: 287 lb 7.724 oz Body Mass Index (BMI) 42.4 Physical Exam Const alert, oriented x3 and no apparent distress Constitutional Narrative: class III obesity. frail, flat affect. General Appearance: cooperative HEENT normocephalic, hearing grossly normal bilaterally, moist oral mucous membranes and oropharynx normal Mouth: oral and palatal mucosa normal Eyes PERRL and EOMs intact bilaterally Neck no lymphadenopathy and supple Resp normal respiratory effort, no retractions, no use of accessory muscles and clearto auscultation bilaterally Cardio regular rate, regular rhythm, S1 normal heart sound, S2 normal heart sound and no murmurs GI normal to inspection, nondistended, normoactive bowel sounds, soft to palpation,non-tender, non-distended and hepatosplenomegaly Extremity normal to inspection, full ROM and no clubbing, cyanosis or edema Neuro oriented x3, CN's II-XII intact bilaterally, moves all extremities and no focal motor deficits Sensorium / Orientation: awake and alert Motor Exam: strength 5/5 throughout Psych affect normal Results Lab / Micro Data 10/10/24 15:40 10/10/24 15:40 Labs: Laboratory Results - last 24 hr 10/10/24 15:40: WBC 3.7 L, RBC 4.20 L, Hgb 11.7 L, Hct 35.8 L, MCV 85.2, MCH 27.9, MCHC 32.7, RDW Std Deviation 51.7 H, RDW Coeff of Carlito 16.7 H, Plt Count 59L, MPV TNP, Immature Gran % (Auto) 0.300, Neut % (Auto) 87.7 H, Lymph % (Auto) 6.7 L, Stoddard % (Auto) 3.2, Eos % (Auto) 0.0, Baso % (Auto) 2.1 H, Absolute Neuts (auto) 3.3, Absolute Lymphs (auto) 0.25 L, Nucleated RBC % 0, Differential Comment SCANNED, PT 19.6 H, INR 1.6, APTT 35.3, Sodium 138, Potassium 4.5, Chloride 104, Carbon Dioxide 20.3L, Anion Gap 14, BUN 69 H, Creatinine 2.06 H, Estim Creat Clear Calc 45.27 L, Est GFR (MDRD) Non-Af34 L, BUN/Creatinine Ratio33.3 H, Glucose 178 H, Lactic Acid 3.7 H*, Calcium 9.0, Total Bilirubin 0. 61, AST 53 H, ALT 33, Alkaline Phosphatase 105, Total Protein 6.6, Albumin 3.1 L, Globulin 3.5, Albumin/Globulin Ratio 0.9 10/10/24 16:15: Urine Color Red, Urine Clarity Cloudy, Urine pH 9.0, Ur SpecificGravity 1.015, Urine Protein 500 H, Urine Glucose (UA) Normal, Urine Ketones Negative, Urine Occult Blood 250 H, Urine Nitrite Negative, Urine Bilirubin Negative, Urine Urobilinogen Normal, Ur Leukocyte Esterase 500 H, U rine RBC > 100 SEEN, Urine WBC 5-10 SEEN, Ur Squamous Epith Cells 0 SEEN, Urine Bacteria 2+, Urine Mucus 0 SEEN Micro: Microbiology 10/10/24 16:00 Mucosa - Nose SARS-CoV-2, Influenza & RSV (PCR) - Final Assessment & Plan Assessment/Plan (1) Sepsis: (2) UTI (urinary tract infection): PLAN: Plan #Sepsis due to UTI * admit to PCU * patient was admitted with a complaint of lower abdominal pain and penile pain. Has indwelling martines catheter which was changed a few days ago. Is usually changed monthly * urinalysis showed 2+ bacteria. Also had hematuria * lactic acid elevated at 3.7. * start on IV cefepime. Get urine and blood cultures * CT abdomen and pelvis without contrast showed a 5.6 cm exophytic enhancing left renal mass and a 6 mm slightly dense exophytic left renal cystic lesion which are concerning for malignancy. It also showed a 1.6 cm indeterminate left adrenal nodule. * hydrate with IVF NS @ 125cc/hr x 2 bags * #UTI: as above #Left renal mass * CT as above. This is similar to prior CT of the abdomen and pelvis from 09/16/2024. There is no urology notes documented in the EMR but patient says he is aware of this mass. It is not clear whether he has followed up with urology has had treatment for it. * Since this is not acute, he will benefit from follow-up with urology on outpatient basis. * #VALENTIN: * Cr is 2.06, with baseline Cr of 1.08. Cr was 1.46 on 09/16/2024 * may be pre-renal due to sepsis, though in light of indwelling martines catheter, an obstructive uropathy cannot be ruled out * hydrate with IVF and trend CR * If Cr continues to trend upwards, to consider nephrology input. * CT abdomen and pelvis as above * #Hypertension: on amlodipine. Hold torsemide due to VALENTIN. #Hyperlipidemia: on statin #Dementia: on donepezil. #Type 2 diabetes mellitus: on lantus 23 units qhs. ISS. Accuchecks ACHS. #BPH with obstructive symptoms * has chronic indwelling martines catheter as mentioned above * on flomax * DVT prophylaxis: SCDs. NO anticoagulation due to hematuria Code status: DNRCCA with intubation * Documentation from alf showed that patient was DNR CCA with intubation. I asked patient this and he also confirmed this. Charges/Coding Visit Charges Inpatient E&M: 73662 Init Hosp L3 10/10/241925 Cosigner Signature (if applicable): CC: Dr. Monika Garcias MD; Kathleen Herzog MD~ Signed ADDENDUM by Dr. Monika Garcias MD on 10/10/24 at 1950 Addendum Pancytopenia * WBC is 3.7 with hemoglobin of 11.7. Platelets of 59. * This drop in platelets is quite precipitous as previous platelets from 09/16/2024 was 205. * likely due to sepsis. * blood thinners on hold for now. * will monitor. I expect it will likely improve as patient recovers from sepsis. If it persists, toconsider hematology consult. 10/10/241949 Cosigner Signature (if applicable): cc: Dr. Monika Garcias MD; Kathleen Herzog MD ~* Signed [facility]04-01-2025 Evaluation note* Diagnosis Onset Date Resolution Status Admit Date Martines catheter problem resolved Ap ril 2024 5:46pm Pancytopenia resolved October 10 025 5:46pm Sepsis resolved October 10 5:46pm UTI (urinary tract infection) resolv ed October 10, 2024 5:46pm 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 chronic October 13, 2024 1:59pm Bacteremia resolved October 13 1:59pm Blood bacterial culture positive resolved October 13, 2024 1:59pm Cellulitis of right lower limb resol july October 13, 2024 1:59pm 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 resolved October 13, 2024 1:59pm Pancytopenia resolved October 13, 2 025 1:59pm Sepsis resolved October 13 1:59pm UTI (urinary tract infection) resolv ed October 13, 2024 1:59pm 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 chronic November 08, 2024 9:45am 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 chronic November 29, 2024 9 :36am 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 chronic January 03, 2025 8:23am Acute kidney injury inactive January 05, 2025 2:41pm Altered mental status inactive Dec 2:41pm Urinary tract infection inactive [facility] 2024 2:41pm 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 chronic January 24, 2025 8:55am [facility] Work Phone: [phone] 135-874804-01-2025 Radiology Diagnostic study note [facility] Imaging Services [address] [place] [address] Abdomen/Pelvis without Cont MR#: [id number] Acct: [id number] Name: JADON ALVAREZ Rep #: [id number] : 1955 M 69 From: Marce Castaneda MD PCP: Kathleen Herzog MD Status: ADM IN Study:Abdomen/Pelvis without Cont Date of Exa m: 10/10/24 Exam# [id number] Ordering Dr: Kurtis Monteiro MD PROCEDURE: ABDOMEN/PELVIS WITHOUT CONT 10/10/2024 REASON FOR EXAM: 69-year-old male, ACUTE KIDNEY INJURY, hematuria. TECHNIQUE: Abdomen and pelvis CT without intravenous contrast. Noncontrast technique limits evaluation of the abdominal and pelvic viscera. Coronal and Sagittal reconstruction series were provided. One or more dose reduction techniques were used (e.g., Automated exposure control, adjustment of the mA and/or kV according to patient size, use of iterative reconstruction technique). PATIENT PREPARATION: Per protocol ORAL CONTRAST TYPE: None. COMPARISON: CT abdomen pelvis 09/17/2024. FINDINGS: Lung bases: Clustered nodularity within the left lower lobe (series 2, image 24). Bibasilar atelectasis. Mild cardiomegaly with coronary artery calcifications and prior aortic valve replacement. Liver: The unopacified liver is normal in size. No biliary ductal dilation. Gallbladder: Several calcified gallstones. Spleen: Mild splenomegaly. Pancreas: The unopacified pancreas is unremarkable. Adrenals: Stable 1.6 cm left adrenal nodule. Unremarkable right adrenal gland. Kidneys: No hydronephrosis or nephrolithiasis. Bilateral vascular calcifications. Stable left lowerpole exophytic mass measuring 6.1 x 5.1 cm (coronal image 75). Bilateral renal cysts. Bladder: Decompressed by indwelling Martines catheter. A portion of the urinary bladder resides withinthe right inguinal hernia, which is unchanged since prior examination. Reproductive Organs: Unremarkable. Bowel: Prior bowel resection and anastomosis within the central lower abdomen. The bowel loops are normal in caliber. No large volume ascites or free air. Tiny oval area of fluid adjacent to the right iliopsoas muscle, which may be in continuity with the adjacent bowel loop (series 2, image 137). This is new since prior examination. No inflammatory mass in the expected region of the appendix. Lymph nodes: Unchanged prominent bilateral inguinal nodes, likely reactive. Vasculature: Moderate diffuse atherosclerotic calcifications are noted. Bones: Mild thoracolumbar spondylosis. CT/Abdomen/Pelvis without Cont IMPRESSION: 1. No acute abdominopelvic finding. 2. Right inguinal hernia containing a portion of the urinary bladder, unchanged since prior examination. The urinary bladder is decompressed by indwelling Martines catheter. 3. Stable large lower pole renal exophytic mass with left adrenal nodule. This is incompletely evaluated by noncontrast examination, however findings are most compatible with renal neoplasm such as renal cell carcinoma.Correlation with outpatient nonemergent CT or MRI abdomen (renal protocol) should be performed for further evaluation. 4. Mild splenomegaly. 5. Clustered nodularity within the left lower lobe, which may be represent infectious/inflammatory etiology such best aspiration pneumonia. Reading Location: [id number] CC: Dr. Kurtis Monteiro MD; Kathleen Herzog MD ~ Gang Knife Fish Chopper: Signed [facility]04-01-2025 Radiology Diagnostic study note [facility] Imaging Services [address] [place] [address] Chest 1 View (Portable) MR#: [id number] Acct: [id number] Name: JADON ALVAREZ Rep #: [id number] : 1955 M 69 From: Champ Ray DO PCP: Kathleen Herzog MD Status: REG ER Study:Chest 1 View (Portable) Date of Exam: 10/10/24 Exam# [id number] Ordering Dr: Kurtis Monteiro MD PROCEDURE: CHEST 1 VIEW (PORTABLE) 10/10/2024 REASON FOR EXAM: FEVER TECHNIQUE: Frontal view of the chest. COMPARISON: Chest radiograph dated 09/16/2024 FINDINGS: Hardware: Sternotomy wires are present. Heart: The heart size is normal. Lungs: The lungs are clear. Bones: Degenerative changes are identified within the thoracic spine. Other: RAD/Chest 1 View (Portable) IMPRESSION: No Acute Findings. Reading Location: [facility] CC: Dr. Kurtis Monteiro MD; Kathleen Herzog MD ~ Gang Knife Fish Chopper: Signed [facility]03-19-2025 Progress note Author Aaron Shannon [facility] Note Date/Time September 27, 2024 10: 55am [facility] [address] [place] [address] Progress Note - Wound Care 09/27/24 1053 MR#: [id number] Acct: [id number] Name: JADON ALVAREZ Rep #:[id number] : 1955 69 From: Aaron Iniguez PM PCP: Dr. Ignacia Reyna, DO Status:REG RCR Location: History of Present Illness Date of Service: 09/27/24 Chief Complaint: Right buttock ulceration History of Wound: Patient is 69-year-old male chronic ulceration to the lateral right leg stable with no sign of infection. Progress of Wound: Stable slow healing wound right lateral leg. Subjective Subjective Mr. Gutierrez is a 69-year-old diabetic male presenting to wound care center todayfor follow-up evaluation of lateral right leg full-thickness wound. He has beengetting every other day dressing changes per [facility] staff [facility]. Patient was complaining about getting extra changes regardinghis dressing on shower days which they stated they did not have an order for. This has been an on growing frustration for the patient and will make attempts to change it during today's visit with new orders. Otherwise his blood sugar has been well- controlled. Denies constitutional symptoms. Denies trauma. No other pedal complaints at this time. Objective Data Objective Data Vital Signs: Vital Signs Temp Pulse Resp BP 98.1 F 58 L 16 165/72 H 09/27/24 08:56 09/27/24 08:56 09/27/24 08:56 09/27/24 08:56 Weight: 157.85 kg Body Mass Index (BMI) 44.6 Physical Exam Narrative Vascular: DP and PT pulses are palpable to the right lower extremity. Nonpitting edema appreciated to the right lower extremity. Skin temperature gradient is warm to warm from proximal ankles to distal digit. No focal increase appreciated. Evidence of varicosities appreciated left lower extremity. Neurological: Light touch intact. Patient response to painful stimuli. Protective sensation is diminished. Dermatological: Full-thickness ulceration to the lateral aspect of the right legmeasuring 14.2 x 3.0 x 0.1 cm. Wound base is granular. No malodor or probe to bone. No sign of infection. Excisional debridement of the right leg lateral aspect full-thickness ulcerationdown to and including subcutaneous tissue with a number 5 mm dermal curette without incident. Predebridement measurement was 13.8 x 2.7 x 0.1 cm. Postdebridement measurement was 14.2 x 3.0 x 0.1 cm. Musculoskeletal: Mild pain to palpation to full-thickness ulceration. No pain with calf compression. Debridement Note Debridement Note Debridement Free Text: Excisional debridement of the right leg lateral aspect full-thickness ulceration down to and including subcutaneous tissue with a number 5 mm dermal curette without incident. Predebridement measurement was 13.8 x 2.7 x 0.1 cm. Postdebridement measurement was 14.2 x 3.0 x 0.1 cm. Post-Debridement Measurements and Additional Note: Post-Debridement Measurements/Treatment CODY - Nurse 1 - General Ulcer Assessment Start: 09/13/24 08:39 Freq: Status: Active Protocol: GALE Activity Type Activity Date Activity User E-sign Co-sign Detail Recorded Client Recorded Date Recorded By Document 09/13/24 08:39 ML [id number] 09/13/24 08:43 ML Document 09/27/24 08:56 CP [id number] 09/27/24 09:11 CP 09/13/24 09/27/24 08:39 08:56 WC - Today's Visit Information Type of service Follow-up Visit Follow-up Visit (Physician/GAS PROVER (Physician/GAS PROVER ) ) Arrival Mode Ambulatory Ambulatory Transfer Assistance None None Patient Identification Verified (Name & Yes Yes ) Patient Requires Transmission-Based No Precautions Height and Weight Body Mass Index (BMI) 44.6 44.6 BMI Classification Obese Obese Vital Signs Temperature (97.8 F-99.1 F) 97.1 F L 98.1 F Temperature Source Temporal Temporal Pulse Rate (60-100) 58 L 58 L Pulse Location Monitor Monitor Respiratory Rate (12-18) 15 16 Respiratory rate source Observation Observation Blood Pressure (90/60-120/80) 152/59 H 165/72 H Blood Pressure Mean (mm Hg) 90 103 Source Monitor Monitor Position Sitting Sitting Blood Pressure Location Left Arm Right Arm History Since Last Visit- (Skip if this is Patient's initial visit) Have you changed medications since your No No last visit? Any new allergies or adverse reactions No No Had a fall/change in ADL's that may No No increase risk of falls Signs or symptoms of abuse and/or No No neglect since last visit Have you been in the hospital since your No No last visit? Has dressing in place as prescribed Yes Yes Has compression in place as prescribed Yes Yes Has offloadiing in place as prescribed Yes N/A Experienced any changes in pain level or No No management Left Footwear Slipper Right Footwear Slipper Pain Scale: 0-10 Numeric Is Patient Pain Free? Yes Yes - Nurse 1 - General Ulcer Measurement Start: 09/13/24 08:39 Freq: Status: Active Protocol: Activity Type Activity Date Activity User E-sign Co-sign Detail Recorded Client Recorded Date Recorded By Document 09/13/24 08:39 ML [id number] 09/13/24 08:43 ML Document 09/27/24 08:56 CP [id number] 09/27/24 09:11 CP 09/13/24 09/27/24 08:39 08:56 Wound Center Nurse 1 #5 RT LAT LE POST-OP -Current Size (cm) - Length 14.5 14.2 -Current Size (cm) - Width 3.2 3 -Current Size (cm) - Depth 0.1 0.1 -Total Square Cm 46.40 42.6 -Date of Last Picture (Recall this 09/27/24 field) -Photo Taken Yes -Epithelialization None Present -Tunneling No -Undermining/Tunneling No -Exudate Amt Medium Small -Exudate Type Serous Serosanguineous -Wound Margin Distinct, Flat & Intact Outline Attached -Granulation Amt Medium (34-66%) Large (67-100%) -Granulation Quality [place] Red -Slough/Fibrin Yes -Necrosis Amt Medium (34-66%) Small (1-33%) -Necrotic Tissue Type Adherent Slough Adherent Slough -Structure Exposed N/A -Texture (Mariza-wound Skin Appearance) Assessed No Abnormality -Moisture (Mariza-wound Skin Appearance) Assessed No Abnormality -Color (Mariza-wound Skin Appearance) Assessed No Abnormality -Temperature (Mariza-wound Skin No Abnormality No Abnormality Appearance) (Pt Warm) (Pt Warm) -Tenderness on Palpation (Mariza-wound No No Skin Appearance) -Ulcer Cleansing Soap and Water Soap and Water -Foul Odor after Cleansing No No -Anesthetic Used 5% Lidocaine 4% Lidocaine Gel Solution Right Calf (cm) 36.5 Right Ankle (cm) 26.5 Left Calf (cm) 35 Left Ankle (cm) 25.5 WC - Nurse 2 - General Ulcer CM Notes Start: 09/13/24 08:39 Freq: Status: Active Protocol: Activity Type Activity Date Activity User E-sign Co-sign Detail Recorded Client Recorded Date Recorded By Document 09/13/24 08:56 JF [id number] 09/13/24 09:00 JF Document 09/27/24 09:34 JF [id number] 09/27/24 09:36 JF 09/13/24 09/27/24 08:56 09:34 Wound Center Nurse 2 #5 RT LAT LE POST-OP -Time 08:56 09:35 -Correct Patient Yes Yes -Correct Side, Site, Position Yes Yes -Correct Procedure Yes Yes -Procedure Performed Yes Yes -Type of Procedure Debridement Debridement -Clinical Debridement Subcutaneous Subcutaneous -Tissue Removed Subcutaneous Subcutaneous -Post Debridement (cm) - Length 14.8 14.2 -Post Debridement (cm) - Width 3.4 3.0 -Post Debridement (cm) - Depth 0.1 0.1 -Total Square (Post) (cm) 50.32 42.60 -Area of Debridement (cm) - Length 14.8 14.2 -Area of Debridement (cm) - Width 3.4 3.0 -Total Square (Area) (cm) 50.32 42.60 -Tunneling No No -Undermining/Tunneling No No -Circular Undermining No No -Wound/Ulcer Outcome Not Healed Not Healed -Ulcer Cleansing Rinsed/ Rinsed/ Irrigated with Irrigated with Saline Saline -Foul Odor after Cleansing No No -Bioengineered Tissue No No -Bleeding Controlled with Pressure Pressure -Treatment Response Procedure Procedure Tolerated Well Tolerated Well -Offloading No No -Debridement - Subq, 1st 20sq cm Yes Yes -Debridement, SubQ, ea addt'l 20sq cm 2 2 or part thereof Pain Scale: 0-10 Numeric Is Patient Pain Free? Yes Yes - Nurse 3 - General Ulcer D/C NN Start: 09/13/24 08:39 Freq: Status: Active Protocol: Activity Type Activity Date Activity User E-sign Co-sign Detail Recorded Client Recorded Date Recorded By Document 09/13/24 09:20 PR [id number] 09/13/24 09:21 MT Document 09/27/24 09:50 [id number] 09/27/24 09:50 GM 09/13/24 09/27/24 09:20 09:50 Wound Care Center Nurse 3 #5 RT LAT LE POST-OP -Ulcer Cleansing Not Cleansed -Foul Odor after Cleansing No -Primary Dressing Applied Promogran Promogran Lalit Matter Lalit Matter -Other Dressing abd -Primary Dressing Covered/Secured with Dry Gauze,Dry Dry Gauze & Gauze & Roll Roll Gauze, Gauze,Secured Secured with with Tape Tape -Promogran Lalit Matter 2 1 LLE -Lotion applied to leg before No compression wrap -Compression Wrap Brittany Wrap Brittany Wrap RLE -Lotion applied to leg before No compression wrap -Compression Wrap Brittany Wrap Brittany Wrap Pain Scale: 0-10 Numeric Is Patient Pain Free? Yes Yes - Visit Discharge Discharge Condition Stable Stable Ambulatory Status Ambulatory Ambulatory Transportation Private Auto Private Auto Medication Reconcilliation completed & No provided to patient/care provider Clinical Summary of Care Provided Yes Notes: chelsy roach Assessment/Plan Assessment/Plan (1) Non-pressure chronic ulcer of other part of right lower leg with fat layer exposed: CODE(S): L97.812 - Non-pressure chronic ulcer of other part of right lowerleg with fat layer exposed PLAN: Patient was examined and evaluated. All findings were discussed with the patient. All questions were answered to the patient's satisfaction. Excisional debridement of the right leg lateral aspect full-thickness ulcerationdown to and including subcutaneous tissue with a number 5 mm dermal curette without incident. Predebridement measurement was 13.8 x 2.7 x 0.1 cm. Postdebridement measurement was 14.2 x 3.0 x 0.1 cm. The right lower extremities were cleaned and patted dry. Moist Lalit, dry sterile dressing andcompression wrap was donned to the right lower extremity. Compression wrap was donned to left lower extremity. Patient will continue dressing changes as written. Educated patient to continue ambulation as well as strict blood sugar control. Follow-up at the wound care center with Dr. Shannon in 2 week. 09/27/24 1055 <Electronically signed by Aaron Shannon DPM> Cosigner Signature (if applicable): CC: ~ Signed [facility] Work Phone: 1(804) [phone] Evaluation note* Diagnosis Onset Date Resolution Status Admit Date 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 resolved September 27, 2024 9:00am Martines catheter problem resolved Ap 2024 5:46pm Pancytopenia resolved October 10 025 5:46pm Sepsis resolved October 10 5:46pm UTI (urinary tract infection) resolv ed October 10, 2024 5:46pm 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 chronic October 13, 2024 1:59pm Bacteremia resolved October 13 1:59pm Blood bacterial culture positive resolved October 13, 2024 1:59pm Cellulitis of right lower limb resol july October 13, 2024 1:59pm 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 resolved October 13, 2024 1:59pm Pancytopenia resolved Rashmi 4th, 2 025 1:59pm Sepsis resolved October 13 1:59pm UTI (urinary tract infection) resolv ed October 13, 2024 1:59pm 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 chronic November 08, 2024 9:45am 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 chronic November 29, 2024 9 :36am 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 chronic January 03, 2025 8:23am Acute kidney injury acute January 05, 2025 2:41pm Altered mental status acute Dec 2:41pm Urinary tract infection acute J une 2024 2:41pm [facility] Work Phone: [phone]) 603-654403-19-2025 Progress note [facility] [address] [place] [address] Progress Note - Wound Care 09/27/24 1053 MR#: [id number] Acct: [id number] Name: JADON ALVAREZ Rep #:[id number] : 1955 69 From: Aaron AVILA PCP: Dr. Ignacia Reyna, DO Status:REG RCR Location: History of Present Illness Date of Service: 09/27/24 Chief Complaint: Right buttock ulceration History of Wound: Patient is 69-year-old male chronic ulceration to the lateral right leg stable with no sign of infection. Progress of Wound: Stable slow healing wound right lateral leg. Subjective Subjective Mr. Gutierrez is a 69-year-old diabetic male presenting to wound care center todayfor follow-up evaluation of lateral right leg full-thickness wound. He has beengetting every other day dressing changesper [facility] staff [facility]. Patient was complaining about getting extra changes regardinghis dressing on shower days which they stated they did not have an order for. This has been an on growing frustration for the patient and will make attempts to change it during today's visit with new orders. Otherwise his blood sugar has been well-controlled. Denies constitutional symptoms. Denies trauma. No other pedal complaints at this time. Objective Data Objective Data Vital Signs: Vital Signs Temp Pulse Resp BP 98.1 F 58 L 16 165/72 H 09/27/24 08:56 09/27/24 08:56 09/27/24 08:56 09/27/24 08:56 Weight: 157.85 kg Body Mass Index (BMI) 44.6 Physical Exam Narrative Vascular: DP and PT pulses are palpable to the right lower extremity. Nonpitting edema appreciated to the right lower extremity. Skin temperature gradient is warm to warm from proximal ankles to distal digit. No focal increase appreciated. Evidence of varicosities appreciated left lower extremity. Neurological: Light touch intact. Patient response to painful stimuli. Protective sensation is diminished. Dermatological: Full-thickness ulceration to the lateral aspect of the right legmeasuring 14.2 x 3.0 x 0.1 cm. Wound base is granular. No malodor or probe to bone. No sign of infection. Excisional debridement of the right leg lateral aspect full-thickness ulcerationdown to and including subcutaneous tissue with a number 5 mm dermal curette without incident. Predebridement measurement was 13.8 x 2.7 x 0.1 cm. Postdebridement measurement was 14.2 x 3.0 x 0.1 cm. Musculoskeletal: Mild pain to palpation to full-thickness ulceration. No pain with calf compression. Debridement Note Debridement Note Debridement Free Text: Excisional debridement of the right leg lateral aspect full-thickness ulceration down to and including subcutaneous tissue with a number 5 mm dermal curette without incident. Predebridement measurement was 13.8 x 2.7 x 0.1 cm. Postdebridement measurement was 14.2 x 3.0 x 0.1 cm. Post-Debridement Measurements and Additional Note: Post-Debridement Measurements/Treatment - Nurse 1 - General Ulcer Assessment Start: 09/13/24 08:39 Freq: Status: Active Protocol: CODY.LOWEXT Activity Type Activity Date Activity User E-sign Co-sign Detail Recorded Client Recorded Date Recorded By Document 09/13/24 08:39 ML [id number] 09/13/24 08:43 ML Document 09/27/24 08:56 CP [id number] 09/27/24 09:11 CP 09/13/24 09/27/24 08:39 08:56 - Today's Visit Information Type of service Follow-up Visit Follow-up Visit (Physician/GAS PROVER (Physician/GAS PROVER ) ) Arrival Mode Ambulatory Ambulatory Transfer Assistance None None Patient Identification Verified (Name & Yes Yes ) Patient Requires Transmission-Based No Precautions Height and Weight Body Mass Index (BMI) 44.6 44.6 BMI Classification Obese Obese Vital Signs Temperature (97.8 F-99.1 F) 97.1 F L 98.1 F Temperature Source Temporal Temporal Pulse Rate (60-100) 58 L 58 L Pulse Location Monitor Monitor Respiratory Rate (12-18) 15 16 Respiratory rate source Observation Observation Blood Pressure (90/60-120/80) 152/59 H 165/72 H Blood Pressure Mean (mm Hg) 90 103 Source Monitor Monitor Position Sitting Sitting Blood Pressure Location Left Arm Right Arm History Since Last Visit- (Skip if this is Patient's initial visit) Have you changed medications since your No No last visit? Any new allergies or adverse reactions No No Had a fall/change in ADL's that may No No increase risk of falls Signs or symptoms of abuse and/or No No neglect since last visit Have you been in the hospital since your No No last visit? Has dressing in place as prescribed Yes Yes Has compression in place as prescribed Yes Yes Has offloadiing in place as prescribed Yes N/A Experienced any changes in pain level or No No management Left Footwear Slipper Right Footwear Slipper Pain Scale: 0-10 Numeric Is Patient Pain Free? Yes Yes WC - Nurse 1 - General Ulcer Measurement Start: 09/13/24 08:39 Freq: Status: Active Protocol: Activity Type Activity Date Activity User E-sign Co-sign Detail Recorded Client Recorded Date Recorded By Document 09/13/24 08:39 ML [id number] 09/13/24 08:43 ML Document 09/27/24 08:56 CP [id number] 09/27/24 09:11 CP 09/13/24 09/27/24 08:39 08:56 Wound Center Nurse 1 #5 RT LAT LE POST-OP -Current Size (cm) - Length 14.5 14.2 -Current Size (cm) - Width 3.2 3 -Current Size (cm) - Depth 0.1 0.1 -Total Square Cm 46.40 42.6 -Date of Last Picture (Recall this 09/27/24 field) -Photo Taken Yes -Epithelialization None Present -Tunneling No -Undermining/Tunneling No -Exudate Amt Medium Small -Exudate Type Serous Serosanguineous -Wound Margin Distinct, Flat & Intact Outline Attached -Granulation Amt Medium (34-66%) Large (67-100%) -Granulation Quality [place] Red -Slough/Fibrin Yes -Necrosis Amt Medium (34-66%) Small (1-33%) -Necrotic Tissue Type Adherent Slough Adherent Slough -Structure Exposed N/A -Texture (Mariza-wound Skin Appearance) Assessed No Abnormality -Moisture (Mariza-wound Skin Appearance) Assessed No Abnormality -Color (Mariza-wound Skin Appearance) Assessed No Abnormality -Temperature (Mariza-wound Skin No Abnormality No Abnormality Appearance) (Pt Warm) (Pt Warm) -Tenderness on Palpation (Mariza-wound No No Skin Appearance) -Ulcer Cleansing Soap and Water Soap and Water -Foul Odor after Cleansing No No -Anesthetic Used 5% Lidocaine 4% Lidocaine Gel Solution Right Calf (cm) 36.5 Right Ankle (cm) 26.5 Left Calf (cm) 35 Left Ankle (cm) 25.5 WC - Nurse 2 - General Ulcer CM Notes Start: 09/13/24 08:39 Freq: Status: Active Protocol: Activity Type Activity Date Activity User E-sign Co-sign Detail Recorded Client Recorded Date Recorded By Document 09/13/24 08:56 [id number] 09/13/24 09:00 Document 09/27/24 09:34 JF [id number] 09/27/24 09:36 09/13/24 09/27/24 08:56 09:34 Wound Center Nurse 2 #5 RT LAT LE POST-OP -Time 08:56 09:35 -Correct Patient Yes Yes -Correct Side, Site, Position Yes Yes -Correct Procedure Yes Yes -Procedure Performed Yes Yes -Type of Procedure Debridement Debridement -Clinical Debridement Subcutaneous Subcutaneous -Tissue Removed Subcutaneous Subcutaneous -Post Debridement (cm) - Length 14.8 14.2 -Post Debridement (cm) - Width 3.4 3.0 -Post Debridement (cm) - Depth 0.1 0.1 -Total Square (Post) (cm) 50.32 42.60 -Area of Debridement (cm) - Length 14.8 14.2 -Area of Debridement (cm) - Width 3.4 3.0 -Total Square (Area) (cm) 50.32 42.60 -Tunneling No No -Undermining/Tunneling No No -Circular Undermining No No -Wound/Ulcer Outcome Not Healed Not Healed -Ulcer Cleansing Rinsed/ Rinsed/ Irrigated with Irrigated with Saline Saline -Foul Odor after Cleansing No No -Bioengineered Tissue No No -Bleeding Controlled with Pressure Pressure -Treatment Response Procedure Procedure Tolerated Well Tolerated Well -Offloading No No -Debridement - Subq, 1st 20sq cm Yes Yes -Debridement, SubQ, ea addt'l 20sq cm 2 2 or part thereof Pain Scale: 0-10 Numeric Is Patient Pain Free? Yes Yes - Nurse 3 - General Ulcer D/C NN Start: 09/13/24 08:39 Freq: Status: Active Protocol: Activity Type Activity Date Activity User E-sign Co-sign Detail Recorded Client Recorded Date Recorded By Document 09/13/24 09:20 MT [id number] 09/13/24 09:21 MT Document 09/27/24 09:50 GM [id number] 09/27/24 09:50 GM 09/13/24 09/27/24 09:20 09:50 [facility] Center Nurse 3 #5 RT LAT LE POST-OP -Ulcer Cleansing Not Cleansed -Foul Odor after Cleansing No -Primary Dressing Applied Promogran Promogran Lalit Matter Lalit Matter -Other Dressing abd -Primary Dressing Covered/Secured with Dry Gauze,Dry Dry Gauze & Gauze & Roll Roll Gauze, Gauze,Secured Secured with with Tape Tape -Promogran Lalit Matter 2 1 LLE -Lotion applied to leg before No compression wrap -Compression Wrap Brittany Wrap Brittany Wrap RLE -Lotion applied to leg before No compression wrap -Compression Wrap Brittany Wrap Brittany Wrap Pain Scale: 0-10 Numeric Is Patient Pain Free? Yes Yes - Visit Discharge Discharge Condition Stable Stable Ambulatory Status Ambulatory Ambulatory Transportation Private Auto Private Auto Medication Reconcilliation completed & No provided to patient/care provider Clinical Summary of Care Provided Yes Notes: chelsy roach Assessment/Plan Assessment/Plan (1) Non-pressure chronic ulcer of other part of right lower leg with fat layer exposed: CODE(S): L97.812 - Non-pressure chronic ulcer of other part of right lowerleg with fat layer exposed PLAN: Patient was examined and evaluated. All findings were discussed with the patient. All questions were answered to the patient's satisfaction. Excisional debridement of the right leg lateral aspect full-thickness ulcerationdown to and including subcutaneous tissue with a number 5 mm dermal curette without incident. Predebridement measurement was 13.8 x 2.7 x 0.1 cm. Postdebridement measurement was 14.2 x 3.0 x 0.1 cm. The right lower extremities were cleaned and patted dry. Moist Lalit, dry sterile dressing andcompression wrap was donned to the right lower extremity. Compression wrap was donned to left lower extremity. Patient will continue dressing changes as written. Educated patient to continue ambulation as well as strict blood sugar control. Follow-up at the wound care center with Dr. Shannon in 2 week. 09/27/24 1055 Cosigner Signature (if applicable): CC: ~ Signed [facility]03-14-2025 History of Present illness Narrative* Isabela Campbell, ORDERLIES TEACHER.GAS PROVER - 09/22/2024 8:40 AM EDT Images from the original note were not included. 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 Failed tamsulosin Previously Not surgical candidate Monthly martines changes recommended. Wishes to speak with Dr. Weller Regarding repeat procedure. Discussed would need cardiac and pcp clearance prior to any procedure. Patient tearful in office today. Orders: MARTINES - CHANGE FOLLOW UP: Return for dr. Downs to discuss procedure. CHIEF COMPLAINT: Patient presents with: Difficulty Urinating HISTORY OF PRESENT ILLNESS: Prior notes were reviewed. Pt known to Dr. Lohr. Canela of BPH. Failed tamsulosin. Chronic martines Last changed 07/2024. Treated with cefdinir for UTI. Started on antibiotic 09/17/24. Reports he can not tolerate/handle martines catheter anymore and it is ruining his life. He is tearful in office today. REVIEW OF SYSTEMS GENERAL:denies unintentional weight loss, malaise or fevers. NEUROLOGIC: pt is alert and oriented GASTROINTESTINAL: No nausea, vomiting, or diarrhea GENITOURINARY: See HPI MUSCULOSKELETAL: Negative for joint pain or swelling, back pain or muscle pain SKIN: Negative for lesions, rash, and itching. ALLERGIES: ALLERGIES Allergen Reactions Ibuprofen Unknown MEDICATIONS: CEFDINIR ORAL Take 300 mg by mouth two times a day. amLODIPine (NORVASC) 5 mg tablet Take 1 tablet by mouth every afternoon. bumetanide (BUMEX) 1 mg tablet TAKE 12 TABLET BY MOUTH TWICE DAILY ELIQUIS 5 mg tab(s) Take 1 tablet by mouth every 12 hours. ferrous sulfate 325 mg (65 mg iron) EC tablet tamsulosin HCl (FLOMAX ORAL) Flomax Oral MOUNJARO 5 mg/0.5 mL pen injector INJECT 5MGS SUBCUTANEOUS EVERY WEEK ROTATE INJECTION SITES traZODone (DESYREL) 50 mg tablet oxyCODONE-acetaminophen (PERCOCET) 5-325 mg tablet TAKE ONE TABLET BY MOUTH EVERY SIX HOURS NEEDED FOR PAIN FOR 3 DAYS SYMBICORT 160-4.5 mcg/actuation inhaler INHALE 2 PUFFS EVERY DAY nystatin (MYCOSTATIN) powder Apply to affected area four times daily. gabapentin (NEURONTIN) 300 mg capsule Take 300 mg by mouth three times a day. atorvastatin (LIPITOR) 20 mg tablet Take 20 mg by mouth once daily. aspirin 81 mg cap Take by mouth. PAST HISTORY: PAST MEDICAL HISTORY Diagnosis Date Atrial fibrillation (HCC) BPH with obstruction/lower urinary tract symptoms CKD (chronic kidney disease) stage 2, GFR 60-89 ml/min Diabetes mellitus (HCC) Renal carcinoma, left (HCC) PAST SURGICAL HISTORY Procedure Laterality Date COLON VIA STOMA RESECTION REPAIR INCISIONAL HERNIA,REDUCIBLE History reviewed. No pertinent family history. Social History Tobacco Use Smoking status: Former Current packs/day: 0.00 Types: Cigarettes Quit date: 2003 Years since quittin.2 Smokeless tobacco: Never Vaping Use Vaping status: Never Used Substance Use Topics Alcohol use: Not Currently Drug use: Never PHYSICAL EXAMINATION: BP 134/66 Pulse (!) 56 SpO2 99% Genitourinary: MALE EXAM: martines catheter in place draining clear yellow Constitutional: In no acute distress. Well appearing. Respiratory: Normal respiratory effort without use of accessory muscles. Musculoskeletal: No LE edema or tenderness; Normal gait and station Cardiovascular: Regular rate Gastrointestinal: Soft, non-distended, non-tender, denies CVA tenderness Laboratory: Creatinine Date Value Ref Range Status 11/25/2023 1.36 0.50 - 1.40 mg/dL Final Comment: Patients receiving either N-Acetylcysteine (NAC) or Metamizole prior to venipuncture, may have falsely depressed results. I have reviewed the problem list, family history, and social history documented by my ancillary staff. Isabela Campbell APRN.GAS PROVER [facility] NoteHNO ID: [id number] Author: ISABELA CAMPBELL APRN.GAS PROVER Service: ? 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 Failed tamsulosin Previously Not surgical candidate Monthly martines changes recommended. Wishes to speak with Dr. Weller Regarding repeat procedure. Discussed would need cardiac and pcp clearance prior to any procedure. Patient tearful in office today. Orders: MARTINES - CHANGE FOLLOW UP: Return for dr. Downs to discuss procedure. CHIEF COMPLAINT: Patient presents with: Difficulty Urinating HISTORY OF PRESENT ILLNESS: Prior notes were reviewed. Pt known to Dr. Downs. Hx of BPH. Failed tamsulosin. Chronic martines Last changed 07/2024. Treated with cefdinir for UTI. Started on antibiotic 09/17/24. Reports he can not tolerate/handle martines catheter anymore and it is ruining his life. He is tearful in office today. REVIEW OF SYSTEMS GENERAL:denies unintentional weight loss, malaise or fevers. NEUROLOGIC: pt is alert and oriented GASTROINTESTINAL: No nausea, vomiting, or diarrhea GENITOURINARY: See HPI MUSCULOSKELETAL: Negative for joint pain or swelling, back pain or muscle pain SKIN: Negative for lesions, rash, and itching. ALLERGIES: ALLERGIES Allergen Reactions Ibuprofen Unknown MEDICATIONS: CEFDINIR ORAL Take 300 mg by mouth two times a day. amLODIPine (NORVASC) 5 mg tablet Take 1 tablet by mouth every afternoon. bumetanide (BUMEX) 1 mg tablet TAKE 12 TABLET BY MOUTH TWICE DAILY ELIQUIS 5 mg tab(s) Take 1 tablet by mouth every 12 hours. ferrous sulfate 325 mg (65 mg iron) EC tablet tamsulosin HCl (FLOMAX ORAL) Flomax Oral MOUNJARO 5 mg/0.5 mL pen injector INJECT 5MGS SUBCUTANEOUS EVERY WEEK ROTATE INJECTION SITES traZODone (DESYREL) 50 mg tablet oxyCODONE-acetaminophen (PERCOCET) 5-325 mg tablet TAKE ONE TABLET BY MOUTH EVERY SIX HOURS NEEDED FOR PAIN FOR 3 DAYS SYMBICORT 160-4.5 mcg/actuation inhaler INHALE 2 PUFFS EVERY DAY nystatin (MYCOSTATIN) powder Apply to affected area four times daily. gabapentin (NEURONTIN) 300 mg capsule Take 300 mg by mouth three times a day. atorvastatin (LIPITOR) 20 mg tablet Take 20 mg by mouth once daily. aspirin 81 mg cap Take by mouth. PAST HISTORY: PAST MEDICAL HISTORY Diagnosis Date Atrial fibrillation (HCC) BPH with obstruction/lower urinary tract symptoms CKD (chronic kidney disease) stage 2, GFR 60-89 ml/min Diabetes mellitus (HCC) Renal carcinoma, left (HCC) PAST SURGICAL HISTORY Procedure Laterality Date COLON VIA STOMA RESECTION REPAIR INCISIONAL HERNIA,REDUCIBLE History reviewed. No pertinent family history. Social History Tobacco Use Smoking status: Former Current packs/day: 0.00 Types: Cigarettes Quit date: 2003 Years since quittin.2 Smokeless tobacco: Never Vaping Use Vaping status: Never Used Substance Use Topics Alcohol use: Not Currently Drug use: Never PHYSICAL EXAMINATION: BP 134/66 Pulse (!) 56 SpO2 99% Genitourinary: MALE EXAM: martines catheter in place draining clear yellow Constitutional: In no acute distress. Well appearing. Respiratory: Normal respiratory effort without use of accessory muscles. Musculoskeletal: No LE edema or tenderness; Normal gait and station Cardiovascular: Regular rate Gastrointestinal: Soft, non-distended, non-tender, denies CVA tenderness Laboratory: Creatinine Date Value Ref Range Status 11/25/2023 1.36 0.50 - 1.40 mg/dL Final Comment: Patients receiving either N-Acetylcysteine (NAC) or Metamizole prior to venipuncture, may have falsely depressed results. I have reviewed the problem list, family history, and social history documented by my ancillary staff. Isabela Campbell APRN.[facility]03-12-2025 Telephone encounter Note * Telephone Encounter - Yokasta Gonzalez SHALOM - 09/20/2024 9:59 AM EDT I spoke to Michelle TSAI from [facility] . Last documentation of pt's 16FR catheter change is July 2024. Pt is currently being treated with cefdinir for a UTI. Pt started abx 09/17/2024 and will complete 09/24/2024. His fu with Isabela Campbell is 09/22/2024. Yokasta Gonzalez MA [facility]03-12-2025 Miscellaneous Notes* Telephone Encounter - Yokasta Gonzalez OCCA - 09/20/2024 9:59 AM EDT I spoke to Michelle TSAI from [facility]. Last documentation of pt's 16FR catheter change is July 2024. Pt is currently being treated with cefdinir for a UTI. Pt started abx 09/17/2024 and will complete 09/24/2024. His fu with Isabela Campbell is 09/22/2024. Yokasta Gonzalez MA documented in this encounterMart[facility]03-09-2025 Discharge summary Author Juan Cunha [facility] Note Date/Time September 16, 2024 11:3 0pm [facility] Medical Records Department [address] [place] [address] Emergency Department Summary 09/16/24 MR#: [id number] Acct: [id number] Name: JADON ALVAREZ Rep #:[id number] 2 : 1955 69 From: Juan Cunha DO PCP: Kathleen Herzog MD Status:REG ER Location: ED ADDENDUM by Dr. Jimmie Odonnell DO on 09/17/24 at 0030 Patient signed out to me to follow-up on imaging studies. Chronic Martines. Recent flu. Increasing weakness with a fall on anticoagulants. Was 1 view chest x-ray interpreted myself and read by radiology shows no acute process. CThead and neck returned negative. CT abdomen pelvis no infectious findings. No bilateral renal cysts and 1.6 cm left adrenal nodule. Urine culture pending he was given IV Rocephin his labs had a creatinine 1.46 his range was from 1.02-1.46. He was given a liter of fluids. His right leg ulcers are chronic that was evaluated, is being managed by wound care last seen 3 days ago. Redressing by nursing. Patient typically ambulates with a cane. Patient was able to standbedside under his own weight however he refused to walk. [facility]. This will be relayed to them. Prescription of antibiotics sent with him. Information recheck labs and image study results with adrenal nodule and cysts noted on his discharge paperwork. Discussed Martines catheter exchange due to infection, however he states he has a urology appointment on [id number] of this month and would like them to do the exchange. He is alert and oriented x 3 during my reevaluation. All his questions were answered. 09/17/24 0030<Electronically signed by Jimmie Salcedo> Cosigner Signature (if applicable): cc: Kathleen Herzog MD ~* Signed HPI History of Present Illness Chief Complaint: Fall Detail of Chief Complaint: Fall and generalized weakness Informant: patient Narrative Narrative: Patient presents to the emergency department from alf after sustaining a fall today. It was unclear if he passed out and fell or if he fell and got knocked unconscious. Apparently the fall was witnessed and it was not believed that the patient hit his head. Patient states that he just feels very weak. Hehad the flu 3 weeks ago. He does describe some dysuria. Apparently had some blood in his urine. He has an indwelling Martines catheter. He is on Eliquis. Hedenies significant cough. He said no vomiting or diarrhea. [facility] Medical History MRSA (methicillin resistant staph aureus) culture positive Lives in alf Wears dentures Depression Anxiety Walker as ambulation aid Ambulates with cane Headache Shortness of breath on exertion Cardiology follow-up encounter History of renal disease Insulin dependent diabetes mellitus Pressure ulcer Abscess Indwelling urethral catheter present Acute painful diabetic polyneuropathy Cancer Former smoker CPAP (continuous positive airway pressure) dependence On home oxygen therapy Pulmonary embolism COPD (chronic obstructive pulmonary disease) Myocardial infarct DVT (deep venous thrombosis) Anemia Ulcer with necrosis of muscle Lymphedema of left lower extremity Lymphedema of right lower extremity Edema of left lower leg Edema of right lower leg Left leg swelling Right leg swelling Chronic venous insufficiency Non-pressure ulcer of right lower extremity with necrosis of muscle BPH (benign prostatic hyperplasia) Atrial fibrillation Blood loss anemia Hypertension Hiatal hernia Diverticulosis Debility Morbid obesity with BMI of 40.0-44.9, adult Impaired mobility SOB (shortness of breath) Heart murmur Heart failure 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 2 diabetes mellitus Aortic valve disease Renal mass, left History of DVT (deep vein thrombosis) Valvular heart disease Atrial fibrillation/flutter Chronic acquired lymphedema Chronic anemia Venous insufficiency (chronic) (peripheral) Ulcer of left lower extremity with fat layer exposed Superficial thrombosis of left lower extremity Peripheral vascular disease of lower extremity with ulceration Sleep apnea Morbid obesity DM2 (diabetes mellitus, type 2) Benign essential HTN Home Medications ?Medication ?Instructions ?Recorded ?Last Taken ?Type aspirin 81 mg tablet,delayed 81 mg PO DAILY 03/17/19 U nknown History release amlodipine 5 mg tablet 5 mg PO DAILY 10/28/23 Unkno wn History apixaban 5 mg tablet (Eliquis) 5 mg PO BID 10/28/23 Un known History atorvastatin 20 mg tablet 20 mg PO QHS 10/28/23 Unknow n History melatonin 3 mg tablet 6 mg PO QHS 10/28/23 Unknown History tamsulosin 0.4 mg capsule 0.4 mg PO QHS 12/22/23 Unkno wn History acetaminophen 325 mg tablet 650 mg PO Q4H PRN pain Unknown History (Tylenol) cyanocobalamin (vitamin B-12) 500 mcg PO DAILY 4 Unknown History 1,000 mcg capsule insulin glargine 100 unit/mL (3 26 unit subcut DAILY 1 08/01/23 Unknown History mL) subcutaneous pen (Lantus Solostar U-100 Insulin) donepezil 5 mg tablet 5 mg PO QHS 08/16/24 Unknown History gabapentin 100 mg capsule 200 mg PO TID 08/16/24 Unkno wn History insulin lispro 100 unit/mL 1 unit subcut TID 08/16/24 Unknown History subcutaneous pen (Humalog KwikPen (U-100) Insulin) lurasidone 40 mg tablet 40 mg PO QPM 08/16/24 Unknow n History potassium chloride 10 mEq 10 meq PO BID 08/16/24 Unkno wn History capsule,extended release torsemide 20 mg tablet 20 mg PO BID 08/16/24 Unknow n History budesonide-formoterol HFA 160 1 puff inhalation DAILY 09/16/24 Unknown History mcg-4.5 mcg/actuation aerosol inhaler (Symbicort) lactulose 20 gram/30 mL oral 30 ml PO DAILY 09/16/24 U nknown History solution sodium chloride 0.9 % nasal 2 ml intranasal TID Unknown History solution trazodone 100 mg tablet 100 mg PO QHS insomnia 09/16 Unknown History Allergy/AdvReac Type Severity Reaction Status Date / Time ibuprofen (From Nuprin) Allergy Unknown Verified 06/01/24 11:58 Family History Mother Diabetes Father Cirrhosis of liver Alcoholism Surgical History History of incision and drainage History of embolic filter insertion History of right inguinal hernia repair H/O colectomy History of repair of inguinal hernia History of bladder surgery History of tonsillectomy and adenoidectomy History of right inguinal hernia repair S/P AVR (aortic valve replacement) Social History housing: alf Smoking Status: Former smoker how long ago did patient quit smoking: Quit ~ 20 yrs prior, smoked age 15 untilquit ~ 2 ppd. alcohol intake: never substance use type: does not use ROS ROS ED Review of Systems ROS Unobtainable: other Constitutional Constitutional ED: Reports lethargy; Denies chills, fever(s), sweats or weight loss Eyes Eyes: Denies blurry vision, change in vision or diplopia ENT ENT ED: Denies rhinorrhea or sore throat Cardiovascular Cardiovascular: Denies chest pain, orthopnea or racing heartbeat Respiratory/Chest Respiratory/Chest: Denies cough, dyspnea, dyspnea on exertion, orthopnea or sputum Gastrointestinal Gastrointestinal: Denies abdominal pain, diarrhea, nausea or vomiting Genitourinary Genitourinary ED: Denies dysuria, hematuria or urinary frequency Musculoskeletal Musculoskeletal: Denies arthralgias, back pain, myalgias or neck pain Integumentary Denies abscess, Abrasions or rash Neurologic Neurologic: Reports weakness; Denies headache(s) Psychiatric Psychiatric: Denies anxiety, depression or suicidal thoughts Endocrine Endocrinology: Denies polydipsia, polyphagia or polyuria Hematologic/Lymphatic Hematologic/Lymphatic: Denies easy bleeding, easy bruising or lymphadenopathy Allergic/Immunologic Allergic/Immunologic ED: Denies mouth swelling, tongue swelling or urticaria EXAM Physical Exam Const Vital Signs: 09/16/24 19:54 09/16/24 20:04 09/16/24 21:02 Temperature 98.4 F 98.0 F Temperature Source Oral Oral Pulse Rate 56 L 50 L Respiratory Rate 18 17 Respiratory Effort Normal Blood Pressure 163/72 H 152/71 H Blood Pressure Mean 102 98 Pulse Ox 98 96 Oxygen Delivery Method Room Air Room Air Room Air Positive well nourished and well developed General Appearance ED: well developed and NAD HEENT Reports TM's clear and moist mucous membranes HEENT Narrative: No external evidence of trauma to his head. normocephalic and atraumatic; Negative for trauma or tenderness Tympanic Membrane ED: Yes TM's clear Eyes PERRL and EOMs intact bilaterally General Eye ED: Negative for pale conjunctiva or scleral icterus Neck no lymphadenopathy, supple and no JVD General: Negative for tenderness Chest Wall inspection of chest normal and palpation of chest normal Chest: Negative for tenderness Resp normal respiratory effort and clear to auscultation bilaterally Effort and Inspection: Negative for respiratory distress or pain with movement Auscultation: Negative for rhonchi, wheezes or diminished lung sounds Cardio regular rate, regular rhythm, S1 normal heart sound, S2 normal heart sound and no murmurs Peripheral Pulses: pulses 2+ throughout GI normal to inspection, nondistended, normoactive bowel sounds, soft to palpation,non-tender, non-distended and no masses Back/Spine no CVA tenderness and no thoracic nor lumbar tenderness Extremity normal to inspection Extremity Narrative: Chronic wound noted to the right lateral calf. Some purulent drainage noted from it. No significant cellulitic changes neurovascular intact distally General Extremety ED: Negative for edema General Extremity: Negative for edema Neuro oriented x3, CN's II-XII intact bilaterally, no sensory deficits noted and gait normal Sensorium / Orientation: awake, alert, oriented to person, oriented to place andoriented to time Motor Exam: strength 5/5 throughout and strength abnormal Psych mental status grossly normal Skin no rashes or lesions noted and no wounds Skin Narrative: Chronic venous stasis wounds both lower extremities. Both legs were wrapped initially. MDM MDM MDM Narrative Medical decision making narrative: Patient presents with generalized weakness and a fall. Multiple chronic medicalconditions from alf. Has indwelling Martines catheter in place. IV line established. CBC with differential count 7.3 with hemoglobin 12.3 and platelet count of 205. Urinalysis positive for UTI. Blood cultures ordered urine culture ordered. Patient started on Rocephin 1 g IV. Chemistries pending. I ordered imaging of the CT scan of the brain as well as C-spine and CT of abdomenpelvis to evaluate further. Patient has left lower quadrant abdominal pain on exam. Care of patient will be turned over to evening physician awaiting lab results as well as CT imaging and final disposition. Lab Data Attestation: I reviewed the patient's lab results. Labs: Laboratory Results - last 24 hr 09/16/24 09/16/24 20:05 20:31 WBC 7.3 RBC 4.44 L Hgb 12.3 L Hct 38.2 L MCV 86.0 MCH 27.7 MCHC 32.2 RDW Std Deviation 51.2 H RDW Coeff of Carlito 16.2 H Plt Count 205 MPV 11.9 Immature Gran % (Auto) 0.300 Neut % (Auto) 63.1 Lymph % (Auto) 22.5 Stoddard % (Auto) 9.6 Eos % (Auto) 4.0 Baso % (Auto) 0.5 Absolute Neuts (auto) 4.6 Absolute Lymphs (auto) 1.64 Nucleated RBC % 0 Lactic Acid 1.2 Urine Color Yellow Urine Clarity Turbid Urine pH 8.0 Ur Specific Crouse 1.010 Urine Protein 30 H Urine Glucose (UA) Normal Urine Ketones Negative Urine Occult Blood 150 H Urine Nitrite Positive H Urine Bilirubin Negative Urine Urobilinogen Normal Ur Leukocyte Esterase 500 H Urine RBC 0-5 SEEN Urine WBC 50-100 SEEN Ur Squamous Epith Cells 0 SEEN Triple Phos Crystals 2+ Urine Bacteria 4+ Urine Mucus 3+ Discharge Plan Triage Chief Complaint: Fall ED Provider: Juan Cunha Dx/Rx/DC Orders Prescriptions: No Action tamsulosin 0.4 mg capsule 0.4 mg PO QHS aspirin 81 MG tablet,delayed release (DR/EC) 81 mg PO DAILY atorvastatin 20 mg tablet 20 mg PO QHS amlodipine 5 mg tablet 5 mg PO DAILY Eliquis 5 mg tablet 5 mg PO BID melatonin 3 mg tablet 6 mg PO QHS acetaminophen [Tylenol] 325 mg tablet 650 mg PO Q4H PRN (Reason: pain) insulin glargine [Lantus Solostar U-100 Insulin] 100 unit/mL (3 mL) insulin pen 26 unit subcut DAILY Rx Instructions: sliding scale cyanocobalamin (vitamin B-12) 1,000 mcg capsule 500 mcg PO DAILY donepezil 5 mg tablet 5 mg PO QHS gabapentin 100 mg capsule 200 mg PO TID insulin lispro [Humalog KwikPen Insulin] 100 unit/mL insulin pen 1 unit subcut TID Patient Comments: sliding scale Rx Instructions: sliding scale lurasidone 40 mg tablet 40 mg PO QPM Rx Instructions: must administer with food (at least 350 calories) potassium chloride 10 mEq capsule, extended release 10 meq PO BID torsemide 20 mg tablet 20 mg PO BID lactulose 20 gram/30 mL solution 30 ml PO DAILY budesonide-formoterol [Symbicort] 160-4.5 mcg/actuation HFA aerosol inhaler 1 puff inhalation DAILY sodium chloride 0.9 % solution 2 ml intranasal TID trazodone 100 mg tablet 100 mg PO QHS Primary Care Provider: Ignacia Reyna Referrals: Ignacia Reyna DO [Primary Care Provider] - Print Language: Georgian What to do if you have Problems For any increased pain, shortness of breath, bleeding, nausea or vomiting, chestpain, or any unexpected problems, contact your Primary Care Provider. Call [facility] ([phone]) or report to the closest Emergency Room. Call 911 if necessary. 09/16/242206 <Electronically signed by Juan Cunha DO> Cosigner Signature (if applicable): CC: Kathleen Herzog MD ~ Signed [facility] Work Phone: [phone]) 254-522803-08-2025 Discharge summary [facility] Medical Records Department [address] [place] [address] Emergency Department Summary 09/16/24 MR#: [id number] Acct: [id number] Name: JADON ALVAREZ Rep #:[id number] 2 : 1955 69 From: Juan Cunha DO PCP: Kathleen Herzog MD Status:REG ER Location: ED ADDENDUM by Dr. Jimmie Odonnell DO on 09/17/24 at 0030 Patient signed out to me to follow-up on imaging studies. Chronic Martines. Recent flu. Increasing weakness with a fall on anticoagulants. Was 1 view chest x-ray interpreted myself and read by radiologyshows no acute process. CThead and neck returned negative. CT abdomen pelvis no infectious findings. No bilateral renal cysts and 1.6 cm left adrenal nodule. Urine culture pending he was given IV Roce phin his labs had a creatinine 1.46 his range was from 1.02-1.46. He was given a liter of fluids. His right leg ulcers are chronic that was evaluated, is being managed by wound care last seen 3 days ago. Redressing by nursing. Patient typically ambulates with a cane. Patient was able to standbedside under his own weight however he refused to walk. [facility] This will berelayed to them. Prescription of antibiotics sent with him. Information recheck labs and image study results with adrenal nodule and cysts noted on his discharge paperwork. Discussed Martines catheter exchange due to infection, however he states he has a urology appointment on stp11du of this month and would like them to do the exchange. He is alert and oriented x 3 during my reevaluation. All his questions were answered. 09/17/24 0030 Cosigner Signature (if applicable): cc: Kathleen Herzog MD ~* Signed HPI History of Present Illness Chief Complaint: Fall Detail of Chief Complaint: Fall and generalized weakness Informant: patient Narrative Narrative: Patient presents to the emergency department from alf after sustaining a fall today. It was unclear if he passed out and fell or if he fell and got knocked unconscious. Apparently the fall was witnessed and it was not believed that the patient hit his head. Patient states that he just feels very weak. Hehad the flu 3 weeks ago. He does describe some dysuria. Apparently had some blood in his urine. He has an indwelling Martines catheter. He is on Eliquis. Hedenies significant cough. He said no vomiting or diarrhea. [facility] Medical History MRSA (methicillin resistant staph aureus) culture positive Lives in alf Wears dentures Depression Anxiety Walker as ambulation aid Ambulates with cane Headache Shortness of breath on exertion Cardiology follow-up encounter History of renal disease Insulin dependent diabetes mellitus Pressure ulcer Abscess Indwelling urethral catheter present Acute painful diabetic polyneuropathy Cancer Former smoker CPAP (continuous positive airway pressure) dependence On home oxygen therapy Pulmonary embolism COPD (chronic obstructive pulmonary disease) Myocardial infarct DVT (deep venous thrombosis) Anemia Ulcer with necrosis of muscle Lymphedema of left lower extremity Lymphedema of right lower extremity Edema of left lower leg Edema of right lower leg Left leg swelling Right leg swelling Chronic venous insufficiency Non-pressure ulcer of right lower extremity with necrosis of muscle BPH (benign prostatic hyperplasia) Atrial fibrillation Blood loss anemia Hypertension Hiatal hernia Diverticulosis Debility Morbid obesity with BMI of 40.0-44.9, adult Impaired mobility SOB (shortness of breath) Heart murmur Heart failure 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 2 diabetes mellitus Aortic valve disease Renal mass, left History of DVT (deep vein thrombosis) Valvular heart disease Atrial fibrillation/flutter Chronic acquired lymphedema Chronic anemia Venous insufficiency (chronic) (peripheral) Ulcer of left lower extremity with fat layer exposed Superficial thrombosis of left lower extremity Peripheral vascular disease of lower extremity with ulceration Sleep apnea Morbid obesity DM2 (diabetes mellitus, type 2) Benign essential HTN Home Medications ?Medication ?Instructions ?Recorded ?Last Taken ?Type aspirin 81 mg tablet,delayed 81 mg PO DAILY 03/17/19 U nknown History release amlodipine 5 mg tablet 5 mg PO DAILY 10/28/23 Unkno wn History apixaban 5 mg tablet (Eliquis) 5 mg PO BID 10/28/23 Un known History atorvastatin 20 mg tablet 20 mg PO QHS 10/28/23 Unknow n History melatonin 3 mg tablet 6 mg PO QHS 10/28/23 Unknown History tamsulosin 0.4 mg capsule 0.4 mg PO QHS 12/22/23 Unkno wn History acetaminophen 325 mg tablet 650 mg PO Q4H PRN pain Unknown History (Tylenol) cyanocobalamin (vitamin B-12) 500 mcg PO DAILY 4 Unknown History 1,000 mcg capsule insulin glargine 100 unit/mL (3 26 unit subcut DAILY 1 08/01/23 Unknown History mL) subcutaneous pen (Lantus Solostar U-100 Insulin) donepezil 5 mg tablet 5 mg PO QHS 08/16/24 Unknown History gabapentin 100 mg capsule 200 mg PO TID 08/16/24 Unkno wn History insulin lispro 100 unit/mL 1 unit subcut TID 08/16/24 Unknown History subcutaneous pen (Humalog KwikPen (U-100) Insulin) lurasidone 40 mg tablet 40 mg PO QPM 08/16/24 Unknow n History potassium chloride 10 mEq 10 meq PO BID 08/16/24 Unkno wn History capsule,extended release torsemide 20 mg tablet 20 mg PO BID 08/16/24 Unknow n History budesonide-formoterol HFA 160 1 puff inhalation DAILY 09/16/24 Unknown History mcg-4.5 mcg/actuation aerosol inhaler (Symbicort) lactulose 20 gram/30 mL oral 30 ml PO DAILY 09/16/24 U nknown History solution sodium chloride 0.9 % nasal 2 ml intranasal TID Unknown History solution trazodone 100 mg tablet 100 mg PO QHS insomnia 09/16 Unknown History Allergy/AdvReac Type Severity Reaction Status Date / Time ibuprofen (From Nuprin) Allergy Unknown Verified 06/01/24 11:58 Family History Mother Diabetes Father Cirrhosis of liver Alcoholism Surgical History History of incision and drainage History of embolic filter insertion History of right inguinal hernia repair H/O colectomy History of repair of inguinal hernia History of bladder surgery History of tonsillectomy and adenoidectomy History of right inguinal hernia repair S/P AVR (aortic valve replacement) Social History housing: alf Smoking Status: Former smoker how long ago did patient quit smoking: Quit ~ 20 yrs prior, smoked age 15 untilquit ~ 2 ppd. alcohol intake: never substance use type: does not use ROS ROS ED Review of Systems ROS Unobtainable: other Constitutional Constitutional ED: Reports lethargy; Denies chills, fever(s), sweats or weight loss Eyes Eyes: Denies blurry vision, change in vision or diplopia ENT ENT ED: Denies rhinorrhea or sore throat Cardiovascular Cardiovascular: Denies chest pain, orthopnea or racing heartbeat Respiratory/Chest Respiratory/Chest: Denies cough, dyspnea, dyspnea on exertion, orthopnea or sputum Gastrointestinal Gastrointestinal: Denies abdominal pain, diarrhea, nausea or vomiting Genitourinary Genitourinary ED: Denies dysuria, hematuria or urinary frequency Musculoskeletal Musculoskeletal: Denies arthralgias, back pain, myalgias or neck pain Integumentary Denies abscess, Abrasions or rash Neurologic Neurologic: Reports weakness; Denies headache(s) Psychiatric Psychiatric: Denies anxiety, depression or suicidal thoughts Endocrine Endocrinology: Denies polydipsia, polyphagia or polyuria Hematologic/Lymphatic Hematologic/Lymphatic: Denies easy bleeding, easy bruising or lymphadenopathy Allergic/Immunologic Allergic/Immunologic ED: Denies mouth swelling, tongue swelling or urticaria EXAM Physical Exam Const Vital Signs: 09/16/24 19:54 09/16/24 20:04 09/16/24 21:02 Temperature 98.4 F 98.0 F Temperature Source Oral Oral Pulse Rate 56 L 50 L Respiratory Rate 18 17 Respiratory Effort Normal Blood Pressure 163/72 H 152/71 H Blood Pressure Mean 102 98 Pulse Ox 98 96 Oxygen Delivery Method Room Air Room Air Room Air Positive well nourished and well developed General Appearance ED: well developed and NAD HEENT Reports TM's clear and moist mucous membranes HEENT Narrative: No external evidence of trauma to his head. normocephalic and atraumatic; Negative for trauma or tenderness Tympanic Membrane ED: Yes TM's clear Eyes PERRL and EOMs intact bilaterally General Eye ED: Negative for pale conjunctiva or scleral icterus Neck no lymphadenopathy, supple and no JVD General: Negative for tenderness Chest Wall inspection of chest normal and palpation of chest normal Chest: Negative for tenderness Resp normal respiratory effort and clear to auscultation bilaterally Effort and Inspection: Negative for respiratory distress or pain with movement Auscultation: Negative for rhonchi, wheezes or diminished lung sounds Cardio regular rate, regular rhythm, S1 normal heart sound, S2 normal heart sound and no murmurs Peripheral Pulses: pulses 2+ throughout GI normal to inspection, nondistended, normoactive bowel sounds, soft to palpation,non-tender, non-distended and no masses Back/Spine no CVA tenderness and no thoracic nor lumbar tenderness Extremity normal to inspection Extremity Narrative: Chronic wound noted to the right lateral calf. Some purulent drainage noted from it. No significantcellulitic changes neurovascular intact distally General Extremety ED: Negative for edema General Extremity: Negative for edema Neuro oriented x3, CN's II-XII intact bilaterally, no sensory deficits noted and gait normal Sensorium / Orientation: awake, alert, oriented to person, oriented to place andoriented to time Motor Exam: strength 5/5 throughout and strength abnormal Psych mental status grossly normal Skin no rashes or lesions noted and no wounds Skin Narrative: Chronic venous stasis wounds both lower extremities. Both legs were wrapped initially. MDM MDM MDM Narrative Medical decision making narrative: Patient presents with generalized weakness and a fall. Multiple chronic medicalconditions from alf. Has indwelling Martines catheter in place. IV line established. CBC with differential count 7.3 with hemoglobin 12.3 and platelet count of 205. Urinalysis positive for UTI. Blood cultures ordered urine culture ordered. Patient started on Rocephin 1 g IV. Chemistries pending. I ordered imagingof the CT scan of the brain as well as C-spine and CT of abdomenpelvis to evaluate further. Patienthas left lower quadrant abdominal pain on exam. Care of patient will be turned over to evening physician awaiting lab results as well as CT imaging and final disposition. Lab Data Attestation: I reviewed the patient's lab results. Labs: Laboratory Results - last 24 hr 09/16/24 09/16/24 20:05 20:31 WBC 7.3 RBC 4.44 L Hgb 12.3 L Hct 38.2 L MCV 86.0 MCH 27.7 MCHC 32.2 RDW Std Deviation 51.2 H RDW Coeff of Carlito 16.2 H Plt Count 205 MPV 11.9 Immature Gran % (Auto) 0.300 Neut % (Auto) 63.1 Lymph % (Auto) 22.5 Stoddard % (Auto) 9.6 Eos % (Auto) 4.0 Baso % (Auto) 0.5 Absolute Neuts (auto) 4.6 Absolute Lymphs (auto) 1.64 Nucleated RBC % 0 Lactic Acid 1.2 Urine Color Yellow Urine Clarity Turbid Urine pH 8.0 Ur Specific Crouse 1.010 Urine Protein 30 H Urine Glucose (UA) Normal Urine Ketones Negative Urine Occult Blood 150 H Urine Nitrite Positive H Urine Bilirubin Negative Urine Urobilinogen Normal Ur Leukocyte Esterase 500 H Urine RBC 0-5 SEEN Urine WBC 50-100 SEEN Ur Squamous Epith Cells 0 SEEN Triple Phos Crystals 2+ Urine Bacteria 4+ Urine Mucus 3+ Discharge Plan Triage Chief Complaint: Fall ED Provider: Juan Cunha Dx/Rx/DC Orders Prescriptions: No Action tamsulosin 0.4 mg capsule 0.4 mg PO QHS aspirin 81 MG tablet,delayed release (DR/EC) 81 mg PO DAILY atorvastatin 20 mg tablet 20 mg PO QHS amlodipine 5 mg tablet 5 mg PO DAILY Eliquis 5 mg tablet 5 mg PO BID melatonin 3 mg tablet 6 mg PO QHS acetaminophen [Tylenol] 325 mg tablet 650 mg PO Q4H PRN (Reason: pain) insulin glargine [Lantus Solostar U-100 Insulin] 100 unit/mL (3 mL) insulin pen 26 unit subcut DAILY Rx Instructions: sliding scale cyanocobalamin (vitamin B-12) 1,000 mcg capsule 500 mcg PO DAILY donepezil 5 mg tablet 5 mg PO QHS gabapentin 100 mg capsule 200 mg PO TID insulin lispro [Humalog KwikPen Insulin] 100 unit/mL insulin pen 1 unit subcut TID Patient Comments: sliding scale Rx Instructions: sliding scale lurasidone 40 mg tablet 40 mg PO QPM Rx Instructions: must administer with food (at least 350 calories) potassium chloride 10 mEq capsule, extended release 10 meq PO BID torsemide 20 mg tablet 20 mg PO BID lactulose 20 gram/30 mL solution 30 ml PO DAILY budesonide-formoterol [Symbicort] 160-4.5 mcg/actuation HFA aerosol inhaler 1 puff inhalation DAILY sodium chloride 0.9 % solution 2 ml intranasal TID trazodone 100 mg tablet 100 mg PO QHS Primary Care Provider: Ignacia Reyna Referrals: Ignacia Reyna DO [Primary Care Provider] - Print Language: Georgian What to do if you have Problems For any increased pain, shortness of breath, bleeding, nausea or vomiting, chestpain, or any unexpected problems, contact your Primary Care Provider. Call [facility] ([phone]) or report tothe closest Emergency Room. Call 911 if necessary. 09/16/242206 Cosigner Signature (if applicable): CC: Kathleen Herzog MD ~ Signed [facility]03-08-2025 Radiology Diagnostic study note [facility] Imaging Services [address] [place] [address] Abdomen/Pelvis W IV Cont ONLY MR#: [id number] Acct: [id number] Name: JADON ALVAREZ Rep #: [id number] 2 : 1955 M 69 From: Champ cash Afuwmarcus DO PCP: Kathleen Herzog MD Status: REG ER Study:Abdomen/Pelvis W IV Cont ONLY Date of E xam: 09/16/24 Exam# [id number] Ordering Dr: Emy Cunha DO PROCEDURE: ABDOMEN/PELVIS W IV CONT ONLY REASON FOR EXAM: Left lower quadrant abdominal pain TECHNIQUE: Abdomen and pelvis CT with intravenous contrast. No oral contrast. IV CONTRAST: COMPARISON: None. FINDINGS: Lung bases: Bibasilar atelectasis. Heart size is normal. No pericardial effusion. Liver: Unremarkable. Gallbladder: Decompressed gallbladder with multiple layering gallstones. Spleen: Unremarkable. Pancreas: Unremarkable. Adrenals: 1.6 cm indeterminate left adrenal nodule. Right adrenal gland is grossly unremarkable. Kidneys: Multiple bilateral exophytic low attenuating lesions, compatible with benign cyst. However, the left kidney demonstrates 5.6 cm enhancing exophytic mass within the lower pole and a slightly dense exophytic cystic lesion within the upper pole measuring 6 cm. Please see recommendations below. Bladder: Urinary bladder is completely decompressed secondary to a Martines catheter. Suspected urinary bladder wall thickening, please correlate with urinalysis. Reproductive Organs: Unremarkable. Bowel: Evaluation of the bowel loops are limited due to lack of oral contrast. The stomach is grossly unremarkable. No inflammatory changes of the small bowel. Mild stool burden within the rectosigmoid colon. Appendix: Normal. Lymph nodes: No suspicious lymph node enlargement. Vasculature: Mild diffuse atherosclerotic calcifications are noted. Peritoneum / Retroperitoneum: No ascites. No free air. Soft tissues: Status post right inguinal hernia repair. There is a small right inguinal hernia containing a focal part of the anterior urinary bladder wall. Bones: Degenerative changes of the spine. CT/Abdomen/Pelvis W IV Cont ONLY IMPRESSION: Decompressed urinary bladder with suspected urinary bladder wall thickening, please correlate with urinalysis. In addition focal portion of the anterior urinary bladder wall is identified within a right inguinal hernia. Mild stool burden within the rectosigmoid colon. No inflammatory changes of thebowel loops. 5.6 cm exophytic enhancing left renal mass and a 6 mm slightly dense exophytic left renal cystic lesion. MRI versus CT of the kidneys with and without contrast is recommended for further characterization. 1.6 cm indeterminate left adrenal nodule. MRI of the adrenal glands is recommended for further characterization. One or more dose reduction techniques were used (e.g., Automated exposure control, adjustment of the mA and/or kV according to patient size, use of iterative reconstruction technique). Reading Location[facility] CC: Dr. Juan Cunha DO; Kathleen Herzog MD ~ Gang Knife Fish Chopper: Signed [facility]03-08-2025 Radiology Diagnostic study note [facility] Imaging Services [address] [place] [address] Spine Cervical without Contras MR#: [id number] Acct: [id number] Name: JADON ALVAREZ Rep #: [id number] : 1955 M 69 From: Champ Ray DO PCP: Kathleen Herzog MD Status: REG ER Study:Spine Cervical without Contras Date of Exam: 09/16/24 Exam# [id number] Ordering Dr: Emy Cunha DO PROCEDURE: SPINE CERVICAL WITHOUT CONTRAS REASON FOR EXAM: Status post fall TECHNIQUE: Cervical spine CT without contrast. COMPARISON: None. FINDINGS: Alignment: Straightening of the cervical alignment likely due to positioning. Vertebrae: No acute fracture or subluxation. Mild anterior vertebral body osteophyte formation. Discs: Mild multilevel narrowing of the intervertebral disc spaces. Soft Tissues: No large prevertebral hematoma CT/Spine Cervical without Contras IMPRESSION: NO ACUTE CERVICAL FRACTURE. DEGENERATIVE CHANGES. One or more dose reduction techniques were used (e.g., Automated exposure control, adjustment of the mA and/or kV according to patient size, use of iterative reconstruction technique). Reading Location: [facility] CC: Dr. Juan Cunha DO; Kathleen Herzog MD ~ Gang Knife Fish Chopper: Signed [facility]03-08-2025 Radiology Diagnostic study note [facility] Imaging Services [address] [place], [place] [id number] Brain/Head without Contrast MR#: [id number] Acct: [id number] Name: JADON ALVAREZ Rep #: [id number] : 1955 M 69 From: Champ Ray DO PCP: Kathleen Herzog MD Status: REG ER Study:Brain/Head without Contrast Date of Exa m: 09/16/24 Exam# [id number] Ordering Dr: Emy Cunha DO PROCEDURE: BRAIN/HEAD WITHOUT CONTRAST REASON FOR EXAM: Status post fall. On Eliquis TECHNIQUE: Head CT without intravenous contrast. COMPARISON: CT brain dated 01/06/2024 FINDINGS: There is no acute intracranial hemorrhage, mass effect, or evidence of large acute infarct. Brain: Within normal limits for age CSF Spaces: Mild generalized cerebral atrophy Sinuses/Mastoids: Opacification of the left maxillary sinus. Bones: Unremarkable CT/Brain/Head without Contrast IMPRESSION: NO ACUTE FINDINGS One or more dose reduction techniques were used (e.g., Automated exposure control, adjustment of the mA and/or kV according to patient size, use of iterative reconstruction technique). Reading Location: [facility] CC: Dr. Juan Cunha DO; Kathleen Herzog MD ~ Gang Knife Fish Chopper: Signed [facility]03-08-2025 Radiology Diagnostic study note [facility] Imaging Services [address] [place], [place] [address] Chest 1 View (Portable) MR#: [id number] Acct: [id number] Name: JADON ALVAREZ Rep #: [id number] : 1955 M 69 From: Champ Ray DO PCP: Kathleen Herzog MD Status: REG ER Study:Chest 1 View (Portable) Date of Exam: 09/16/24 Exam# [id number] Ordering Dr: Emy Cunha DO PROCEDURE: CHEST 1 VIEW (PORTABLE) REASON FOR EXAM: Weakness TECHNIQUE: Frontal view of the chest. COMPARISON: Chest radiograph dated 01/04/2024 FINDINGS: Sternotomy wires are present. The heart size is normal. The lungs are clear. Degenerative changes are identified within the thoracic spine. RAD/Chest 1 View (Portable) IMPRESSION: No focal consolidation. Reading Location: [facility] CC: Dr. Juan Cunha, DO; Kathleen Herzog MD ~ Gang Knife Fish Chopper: Signed [facility]03-05-2025 Progress note Author Aaron Shannon [facility] Note Date/Time September 13, 2024 9:11 am [facility] [address] [place] [address] Progress Note - Wound Care 09/13/24 1008 MR#: [id number] Acct: [id number] Name: JADON ALVAREZ Rep #:[id number] : 1955 69 From: Aaron AVILA PCP: Dr. Ignacia Reyna DO Status:REG RCR Location: History of Present Illness Date of Service: 10/11/24 Chief Complaint: Right buttock ulceration History of Wound: Patient is 69-year-old male chronic ulceration to the lateral right leg stable with no sign of infection. Progress of Wound: Stable slow healing wound right lateral leg. Subjective Subjective Mr. Gutierrez is a 69-year-old diabetic male presented wound care center today forfollow-up evaluation of full-thickness wound to lateral right leg. He is getting dressing changes every other day at the nursing facility. He denies anypain to the right lower extremity. He is getting wrapped and cleaned as instructed. Blood sugars well-controlled. He denies any trauma. Denies constitutional symptoms. No other pedal complaints at this time. Objective Data Objective Data Vital Signs: Vital Signs Temp Pulse Resp BP 97.1 F L 58 L 15 152/59 H 09/13/24 08:39 09/13/24 08:39 09/13/24 08:39 09/13/24 08:39 Weight: 157.85 kg Body Mass Index (BMI) 44.6 Physical Exam Narrative Vascular: DP and PT pulses are palpable to the right lower extremity. Nonpitting edema appreciated to the right lower extremity. Skin temperature gradient is warm to warm from proximal ankles to distal digit. No focal increase appreciated. Evidence of varicosities appreciated left lower extremity. Neurological: Light touch intact. Patient response to painful stimuli. Protective sensation is diminished. Dermatological: Full-thickness ulceration to the lateral aspect of the right legmeasuring 14.8 x 3.4 x 0.1 cm. Wound base is granular. No malodor or probe to bone. No sign of infection. Excisional debridement of the right leg lateral aspect full-thickness ulcerationdown to and including subcutaneous tissue with a number 7 mm dermal curette without incident. Predebridement measurement was 14.6 x 3.2 x 0.1 cm. Postdebridement measurement was 14.8 x 3.4 x 0.1 cm. Musculoskeletal: Mild pain to palpation to full-thickness ulceration. No pain with calf compression. Debridement Note Debridement Note Debridement Free Text: Excisional debridement of the right leg lateral aspect full-thickness ulceration down to and including subcutaneous tissue with a number 7 mm dermal curette without incident. Predebridement measurement was 14.6 x 3.2 x 0.1 cm. Postdebridement measurement was 14.8 x 3.4 x 0.1 cm. Post-Debridement Measurements and Additional Note: Post-Debridement Measurements/Treatment - Nurse 1 - General Ulcer Assessment Start: 09/13/24 08:39 Freq: Status: Active Protocol: WC.LOWEXT Activity Type Activity Date Activity User E-sign Co-sign Detail Recorded Client Recorded Date Recorded By Document 09/13/24 08:39 ML [id number] 09/13/24 08:43 ML 09/13/24 08:39 - Today's Visit Information Type of service Follow-up Visit (Physician/[facility] ) Arrival Mode Ambulatory Transfer Assistance None Patient Identification Verified (Name & Yes ) Patient Requires Transmission-Based No Precautions Height and Weight Body Mass Index (BMI) 44.6 BMI Classification Obese Vital Signs Temperature (97.8 F-99.1 F) 97.1 F L Temperature Source Temporal Pulse Rate (60-100) 58 L Pulse Location Monitor Respiratory Rate (12-18) 15 Respiratory rate source Observation Blood Pressure (90/60-120/80) 152/59 H Blood Pressure Mean (mm Hg) 90 Source Monitor Position Sitting Blood Pressure Location Left Arm History Since Last Visit- (Skip if this is Patient's initial visit) Have you changed medications since your No last visit? Any new allergies or adverse reactions No Had a fall/change in ADL's that may No increase risk of falls Signs or symptoms of abuse and/or No neglect since last visit Have you been in the hospital since your No last visit? Has dressing in place as prescribed Yes Has compression in place as prescribed Yes Has offloadiing in place as prescribed Yes Experienced any changes in pain level or No management Pain Scale: 0-10 Numeric Is Patient Pain Free? Yes WC - Nurse 1 - General Ulcer Measurement Start: 09/13/24 08:39 Freq: Status: Active Protocol: Activity Type Activity Date Activity User E-sign Co-sign Detail Recorded Client Recorded Date Recorded By Document 09/13/24 08:39 ML [id number] 09/13/24 08:43 ML 09/13/24 08:39 Wound Center Nurse 1 #5 RT LAT LE POST-OP -Current Size (cm) - Length 14.5 -Current Size (cm) - Width 3.2 -Current Size (cm) - Depth 0.1 -Total Square Cm 46.40 -Exudate Amt Medium -Exudate Type Serous -Wound Margin Distinct, Outline Attached -Granulation Amt Medium (34-66%) -Granulation Quality [place] -Slough/Fibrin Yes -Necrosis Amt Medium (34-66%) -Necrotic Tissue Type Adherent Slough -Texture (Mariza-wound Skin Appearance) Assessed -Moisture (Mariza-wound Skin Appearance) Assessed -Color (Mariza-wound Skin Appearance) Assessed -Temperature (Mariza-wound Skin No Abnormality Appearance) (Pt Warm) -Tenderness on Palpation (Mariza-wound No Skin Appearance) -Ulcer Cleansing Soap and Water -Foul Odor after Cleansing No -Anesthetic Used 5% Lidocaine Gel Left Calf (cm) 35 Left Ankle (cm) 25.5 WC - Nurse 2 - General Ulcer CM Notes Start: 09/13/24 08:39 Freq: Status: Active Protocol: Activity Type Activity Date Activity User E-sign Co-sign Detail Recorded Client Recorded Date Recorded By Document 09/13/24 08:56 [id number] 09/13/24 09:00 TALI 09/13/24 08:56 Wound Center Nurse 2 #5 RT LAT LE POST-OP -Time 08:56 -Correct Patient Yes -Correct Side, Site, Position Yes -Correct Procedure Yes -Procedure Performed Yes -Type of Procedure Debridement -Clinical Debridement Subcutaneous -Tissue Removed Subcutaneous -Post Debridement (cm) - Length 14.8 -Post Debridement (cm) - Width 3.4 -Post Debridement (cm) - Depth 0.1 -Total Square (Post) (cm) 50.32 -Area of Debridement (cm) - Length 14.8 -Area of Debridement (cm) - Width 3.4 -Total Square (Area) (cm) 50.32 -Tunneling No -Undermining/Tunneling No -Circular Undermining No -Wound/Ulcer Outcome Not Healed -Ulcer Cleansing Rinsed/ Irrigated with Saline -Foul Odor after Cleansing No -Bioengineered Tissue No -Bleeding Controlled with Pressure -Treatment Response Procedure Tolerated Well -Offloading No -Debridement - Subq, 1st 20sq cm Yes -Debridement, SubQ, ea addt'l 20sq cm 2 or part thereof Pain Scale: 0-10 Numeric Is Patient Pain Free? Yes - Nurse 3 - General Ulcer D/C NN Start: 09/13/24 08:39 Freq: Status: Active Protocol: Activity Type Activity Date Activity User E-sign Co-sign Detail Recorded Client Recorded Date Recorded By Document 09/13/24 09:20 PR [id number] 09/13/24 09:21 PR 09/13/24 09:20 Wound Care Center Nurse 3 #5 RT LAT LE POST-OP -Primary Dressing Applied Promogran Lalit Matter -Other Dressing abd -Primary Dressing Covered/Secured with Dry Gauze,Dry Gauze & Roll Gauze,Secured with Tape -Promogran Lalit Matter 2 LLE -Compression Wrap Brittany Wrap RLE -Compression Wrap Brittany Wrap Pain Scale: 0-10 Numeric Is Patient Pain Free? Yes WC - Visit Discharge Discharge Condition Stable Ambulatory Status Ambulatory Transportation Private Auto Medication Reconcilliation completed & No provided to patient/care provider Clinical Summary of Care Provided Yes Notes: chelsy roach Assessment/Plan Assessment/Plan (1) Non-pressure chronic ulcer of other part of right lower leg with fat layer exposed: CODE(S): L97.812 - Non-pressure chronic ulcer of other part of right lowerleg with fat layer exposed PLAN: Patient was examined and evaluated. All findings were discussed with the patient. All questions were answered to the patient's satisfaction. Excisional debridement of the right leg lateral aspect full-thickness ulcerationdown to and including subcutaneous tissue with a number 7 mm dermal curette without incident. Predebridement measurement was 14.6 x 3.2 x 0.1 cm. Postdebridement measurement was 14.8 x 3.4 x 0.1 cm. The right lower extremities were cleaned and patted dry. Walter put Lalit dry sterile dressing and compression wrap was donned to the right lower extremity. Compression wrap was donned to left lower extremity. Patient will continue dressing changes as written. Educated patient to continue ambulation as well as strict blood sugar control. Follow-up at the wound care center with Dr. Shannon in 2 week. 09/13/24 1011 <Electronically signed by Aaron Shannon DPM> Cosigner Signature (if applicable): CC: ~ Signed [facility] Work Phone: 1(608) 831-717203-05-2025 Progress note [facility] [address] [place] [address] Progress Note - Wound Care 09/13/24 1008 MR#: [id number] Acct: [id number] Name: JADON ALVAREZ Rep #:[id number] 3 : 1955 69 From: Aaron AVILA PCP: Dr. Ignacia Reyna, DO Status:REG RCR Location: History of Present Illness Date of Service: 10/11/24 Chief Complaint: Right buttock ulceration History of Wound: Patient is 69-year-old male chronic ulceration to the lateral right leg stable with no sign of infection. Progress of Wound: Stable slow healing wound right lateral leg. Subjective Subjective Mr. Gutierrez is a 69-year-old diabetic male presented wound care center today forfollow-up evaluation of full-thickness wound to lateral right leg. He is getting dressing changes every other day at the nursing facility. He denies anypain to the right lower extremity. He is getting wrapped and cleaned as instructed. Blood sugars well-controlled. He denies any trauma. Denies constitutional symptoms.No other pedal complaints at this time. Objective Data Objective Data Vital Signs: Vital Signs Temp Pulse Resp BP 97.1 F L 58 L 15 152/59 H 09/13/24 08:39 09/13/24 08:39 09/13/24 08:39 09/13/24 08:39 Weight: 157.85 kg Body Mass Index (BMI) 44.6 Physical Exam Narrative Vascular: DP and PT pulses are palpable to the right lower extremity. Nonpitting edema appreciated to the right lower extremity. Skin temperature gradient is warm to warm from proximal ankles to distal digit. No focal increase appreciated. Evidence of varicosities appreciated left lower extremity. Neurological: Light touch intact. Patient response to painful stimuli. Protective sensation is diminished. Dermatological: Full-thickness ulceration to the lateral aspect of the right legmeasuring 14.8 x 3.4 x 0.1 cm. Wound base is granular. No malodor or probe to bone. No sign of infection. Excisional debridement of the right leg lateral aspect full-thickness ulcerationdown to and including subcutaneous tissue with a number 7 mm dermal curette without incident. Predebridement measurement was 14.6 x 3.2 x 0.1 cm. Postdebridement measurement was 14.8 x 3.4 x 0.1 cm. Musculoskeletal: Mild pain to palpation to full-thickness ulceration. No pain with calf compression. Debridement Note Debridement Note Debridement Free Text: Excisional debridement of the right leg lateral aspect full-thickness ulceration down to and including subcutaneous tissue with a number 7 mm dermal curette without incident. Predebridement measurement was 14.6 x 3.2 x 0.1 cm. Postdebridement measurement was 14.8 x 3.4 x 0.1 cm. Post-Debridement Measurements and Additional Note: Post-Debridement Measurements/Treatment - Nurse 1 - General Ulcer Assessment Start: 09/13/24 08:39 Freq: Status: Active Protocol: WC.LOWEXT Activity Type Activity Date Activity User E-sign Co-sign Detail Recorded Client Recorded Date Recorded By Document 09/13/24 08:39 ML [id number] 09/13/24 08:43 ML 09/13/24 08:39 - Today's Visit Information Type of service Follow-up Visit (Physician/[facility] ) Arrival Mode Ambulatory Transfer Assistance None Patient Identification Verified (Name & Yes ) Patient Requires Transmission-Based No Precautions Height and Weight Body Mass Index (BMI) 44.6 BMI Classification Obese Vital Signs Temperature (97.8 F-99.1 F) 97.1 F L Temperature Source Temporal Pulse Rate (60-100) 58 L Pulse Location Monitor Respiratory Rate (12-18) 15 Respiratory rate source Observation Blood Pressure (90/60-120/80) 152/59 H Blood Pressure Mean (mm Hg) 90 Source Monitor Position Sitting Blood Pressure Location Left Arm History Since Last Visit- (Skip if this is Patient's initial visit) Have you changed medications since your No last visit? Any new allergies or adverse reactions No Had a fall/change in ADL's that may No increase risk of falls Signs or symptoms of abuse and/or No neglect since last visit Have you been in the hospital since your No last visit? Has dressing in place as prescribed Yes Has compression in place as prescribed Yes Has offloadiing in place as prescribed Yes Experienced any changes in pain level or No management Pain Scale: 0-10 Numeric Is Patient Pain Free? Yes WC - Nurse 1 - General Ulcer Measurement Start: 09/13/24 08:39 Freq: Status: Active Protocol: Activity Type Activity Date Activity User E-sign Co-sign Detail Recorded Client Recorded Date Recorded By Document 09/13/24 08:39 ML [id number] 09/13/24 08:43 ML 09/13/24 08:39 Wound Center Nurse 1 #5 RT LAT LE POST-OP -Current Size (cm) - Length 14.5 -Current Size (cm) - Width 3.2 -Current Size (cm) - Depth 0.1 -Total Square Cm 46.40 -Exudate Amt Medium -Exudate Type Serous -Wound Margin Distinct, Outline Attached -Granulation Amt Medium (34-66%) -Granulation Quality [place] -Slough/Fibrin Yes -Necrosis Amt Medium (34-66%) -Necrotic Tissue Type Adherent Slough -Texture (Mariza-wound Skin Appearance) Assessed -Moisture (Mariza-wound Skin Appearance) Assessed -Color (Mariza-wound Skin Appearance) Assessed -Temperature (Mariza-wound Skin No Abnormality Appearance) (Pt Warm) -Tenderness on Palpation (Mariza-wound No Skin Appearance) -Ulcer Cleansing Soap and Water -Foul Odor after Cleansing No -Anesthetic Used 5% Lidocaine Gel Left Calf (cm) 35 Left Ankle (cm) 25.5 WC - Nurse 2 - General Ulcer CM Notes Start: 09/13/24 08:39 Freq: Status: Active Protocol: Activity Type Activity Date Activity User E-sign Co-sign Detail Recorded Client Recorded Date Recorded By Document 09/13/24 08:56 [id number] 09/13/24 09:00 09/13/24 08:56 Wound Center Nurse 2 #5 RT LAT LE POST-OP -Time 08:56 -Correct Patient Yes -Correct Side, Site, Position Yes -Correct Procedure Yes -Procedure Performed Yes -Type of Procedure Debridement -Clinical Debridement Subcutaneous -Tissue Removed Subcutaneous -Post Debridement (cm) - Length 14.8 -Post Debridement (cm) - Width 3.4 -Post Debridement (cm) - Depth 0.1 -Total Square (Post) (cm) 50.32 -Area of Debridement (cm) - Length 14.8 -Area of Debridement (cm) - Width 3.4 -Total Square (Area) (cm) 50.32 -Tunneling No -Undermining/Tunneling No -Circular Undermining No -Wound/Ulcer Outcome Not Healed -Ulcer Cleansing Rinsed/ Irrigated with Saline -Foul Odor after Cleansing No -Bioengineered Tissue No -Bleeding Controlled with Pressure -Treatment Response Procedure Tolerated Well -Offloading No -Debridement - Subq, 1st 20sq cm Yes -Debridement, SubQ, ea addt'l 20sq cm 2 or part thereof Pain Scale: 0-10 Numeric Is Patient Pain Free? Yes - Nurse 3 - General Ulcer D/C NN Start: 09/13/24 08:39 Freq: Status: Active Protocol: Activity Type Activity Date Activity User E-sign Co-sign Detail Recorded Client Recorded Date Recorded By Document 09/13/24 09:20 PR [id number] 09/13/24 09:21 PR 09/13/24 09:20 Wound Care Center Nurse 3 #5 RT LAT LE POST-OP -Primary Dressing Applied Promogran Lalit Matter -Other Dressing abd -Primary Dressing Covered/Secured with Dry Gauze,Dry Gauze & Roll Gauze,Secured with Tape -Promogran Lalit Matter 2 LLE -Compression Wrap Brittany Wrap RLE -Compression Wrap Brittany Wrap Pain Scale: 0-10 Numeric Is Patient Pain Free? Yes - Visit Discharge Discharge Condition Stable Ambulatory Status Ambulatory Transportation Private Auto Medication Reconcilliation completed & No provided to patient/care provider Clinical Summary of Care Provided Yes Notes: chelsy roach Assessment/Plan Assessment/Plan (1) Non-pressure chronic ulcer of other part of right lower leg with fat layer exposed: CODE(S): L97.812 - Non-pressure chronic ulcer of other part of right lowerleg with fat layer exposed PLAN: Patient was examined and evaluated. All findings were discussed with the patient. All questions were answered to the patient's satisfaction. Excisional debridement of the right leg lateral aspect full-thickness ulcerationdown to and including subcutaneous tissue with a number 7 mm dermal curette without incident. Predebridement measurement was 14.6 x 3.2 x 0.1 cm. Postdebridement measurement was 14.8 x 3.4 x 0.1 cm. The right lower extremities were cleaned and patted dry. Walter put Lalit dry sterile dressing and compression wrap was donned to the right lower extremity. Compression wrap was donned to left lower extremity. Patient will continue dressing changes as written. Educated patient to continue ambulation as well as strict blood sugar control. Follow-up at the wound care center with Dr. Shannon in 2 week. 09/13/24 1011 Cosigner Signature (if applicable): CC: ~ Signed [facility]02-19-2025 Evaluation note* Diagnosis Onset Date Resolution Status Admit Date 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 resolved August 30 8:45am Other specified peripheral vascular diseases inactive August 30, 2024 8:45am 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 resolved September 27, 2024 9:00am Martines catheter problem resolved Ap 2024 5:46pm Pancytopenia resolved October 10 025 5:46pm Sepsis resolved October 10 5:46pm UTI (urinary tract infection) resolv ed October 10, 2024 5:46pm 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 chronic October 13, 2024 1:59pm Bacteremia resolved October 13 1:59pm Blood bacterial culture positive resolved October 13, 2024 1:59pm Cellulitis of right lower limb resolved October 13, 2024 1:59pm 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 resolved October 13, 2024 1:59pm Pancytopenia resolved October 13 025 1:59pm Sepsis resolved October 13 1:59pm UTI (urinary tract infection) resolv ed October 13, 2024 1:59pm 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 chronic November 08, 2024 9:45am 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 chronic November 29, 2024 9 :36am [facility] Work Phone: 1(755) 160-823802-11-2025 Telephone encounter Note* Telephone Encounter - Isela Shea - 08/22/2024 8:24 AM EST snf called to cancel/no transport They w/c to [facility] Isela Shea [facility]02-11-2025 Miscellaneous Notes* Telephone Encounter - Isela Shea - 08/22/2024 8:24 AM EST snf called to cancel/no transport They w/c to [facility] Hospital Discharge instructions Patient Education 07/28/2024 18:19:48 Suicidal, 72-Hour Hold Suicidal Thoughts (72-Hour Hold) Your doctor has determined that your thoughts and actions are suicidal and there is a risk that youmay try to harm yourself if you leave here. This is most often a sign of depression or excess angerat yourself or someone else. With your protection and well-being in mind, you have been placed on alegal 72-hour hold so that you can be evaluated by a psychiatrist. What is a 72-hour hold? The law requires that you must be held for up to 72 hours for the purpose of a psychiatric evaluation if it is determined by a certified person (emergency physician, psychiatrist, psychiatric nurse or cable technician, special police officer or optometric technologist's deputy) that you are: A danger to yourself or others, or Not able to care for yourself, or Gravely disabled This is true even if you do not consent to this. Follow-up care Upon release, please follow up with your doctor for continued medical care. Call 911 Call 911 if you have suicidal thoughts, a suicide plan, and the means to carry out the plan, or serious thoughts of hurting someone else. When to seek medical advice Call your healthcare provider or emergency services right away if any of the following occur: Current symptoms gradually or suddenly return Feeling extreme depression, anxiety or anger toward yourself or others Feeling out of control Feeling that you may try to harm yourself or someone else Hearing voices that others do not hear Seeing things that others do not see Having extreme mood swings Not able to sleep or eat for 3 days in a row Family or friends express concern over your well-being and behaviors and ask you to seek help [phone] [employer]. [address] [place] [address], [place] [address]. All rights reserved. This information is not intended as a substitute for professional medical care. Always follow yourhealthcare professional's instructions. Follow Up Care 07/28/2024 14:41:39 With:KELLIE BENITES APRN-[facility] Address: [address] [place] [address] [place] [address]- [phone] When:2-4 days [facility] 01-17-2025 Note* Exam Date Time Procedure Performing Provider Status 07/28/24 3:15 PM EKG [ED [facility]] - CV FERNANDO ZEE MD; Auth (Verified) ECG Final Report Sinus rhythm Prolonged [place] interval Incomplete left bundle branch block Baseline wander in lead(s) III Electronic Signature: FERNANDO ZEE MD 07/28/2024 15:18:17 [facility]01-02-2025 Telephone encounter Note* Telephone Encounter - Isela Shea - 07/13/2024 8:36 AM EST Nannette from [facility] called st bladder issues and bloodin bag has resolved and they wanted to cancel the 07/19/2024 appt and keep 08/22/2024. Isela Shea [facility]01-02-2025 Miscellaneous Notes* Telephone Encounter - Isela Shea - 07/13/2024 8:36 AM EST Nannette from [facility] called st bladder issues and bloodin bag has resolved and they wanted to cancel the 07/19/2024 appt and keep 08/22/2024. 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 July 26, 2024 8:45am 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 July 26 8:45am Other specified peripheral vascular diseases acute August 30, 2024 8:45am 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 August 30 8:45am 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 September 27, 2024 9:00am [facility] Work Phone: 1(935) 310-232612-31-2024 Evaluation note* Diagnosis Onset Date Resolution Status Admit Date 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 July 11, 2024 8:30am 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 July 11 024 8:30am Non-pressure chronic ulcer o f right heel and 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 chronic July 11, 2024 8:30am 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 July 26, 2024 8:45am 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 July 26 8:45am Other specified peripheral vascular diseases acute February 19th, 2025 8:45am 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 August 30 025 8:45am 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 September 27, 2024 9:00am Sepsis acute October 10 5:46pm UTI (urinary tract infection) acute October 10, 2024 5:46pm [facility] Work Phone: 1(659) 953-504312-31-2024 Evaluation note* Diagnosis Onset Date Resolution Status Admit Date 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 July 11 024 8:30am 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 July 11 024 8:30am Non-pressure chronic ulcer o f right heel and 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 chronic July 11, 2024 8:30am 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 July 26 8:45am 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 July 26 8:45am Other specified peripheral vascular diseases acute August 30, 2024 8:45am 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 August 30 8:45am 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 September 27, 2024 9:00am Martines catheter problem acute Ap 2024 5:46pm Pancytopenia acute October 10 025 5:46pm Sepsis acute October 10 5:46pm UTI (urinary tract infection) acute October 10, 2024 5:46pm [facility] Work Phone: 1([phone]) 498-144112-31-2024 Evaluation note* Diagnosis Onset Date Resolution Status Admit Date 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 July 11 024 8:30am 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 July 11 8:30am Non-pressure chronic ulcer o f right heel and 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 chronic July 11, 2024 8:30am 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 July 26 8:45am 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 July 26 8:45am Other specified peripheral vascular diseases acute August 30, 2024 8:45am 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 August 30 8:45am 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 September 27, 2024 9:00am Martines catheter problem acute Ap 2024 5:46pm Pancytopenia acute October 10, 025 5:46pm Sepsis acute October 10 5:46pm UTI (urinary tract infection) acute October 10, 2024 5:46pm Blood bacterial culture positive acute October 13, 2024 1:59pm Pancytopenia acute October 13, 025 1:59pm 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 October 13, 2024 1:59pm [facility] Work Phone: 1(997) 697-204012-31-2024 Evaluation note* Diagnosis Onset Date Resolution Status Admit Date 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 July 11, 2024 8:30am 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 July 11 8:30am Non-pressure chronic ulcer o f right heel and 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 chronic July 11, 2024 8:30am 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 July 26, 2024 8:45am 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 July 26 8:45am Other specified peripheral vascular diseases acute August 30, 2024 8:45am 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 August 30 8:45am 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 September 27, 2024 9:00am Martines catheter problem resolved Ap 2024 5:46pm Pancytopenia resolved October 10 2 025 5:46pm Sepsis resolved October 10 5:46pm UTI (urinary tract infection) resolv ed October 10, 2024 5:46pm Bacteremia acute October 13 1:59pm Blood bacterial culture positive acute October 13, 2024 1:59pm Cellulitis of right lower limb acute October 13, 2024 1:59pm 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 October 13, 2024 1:59pm 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 chronic October 13, 2024 1:59pm Pancytopenia resolved October 13 025 1:59pm Sepsis resolved October 13 1:59pm UTI (urinary tract infection) resolv ed October 13, 2024 1:59pm [facility] Work Phone: 1(950) 590-243311-25-2024 Evaluation note* Diagnosis Onset Date Resolution Status Admit Date 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 June 05 11:30am Other specified peripheral vascular diseases acute June 07, 2024 8:45am 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 June 07, 2024 8:45am 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 June 07 8:45am 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 July 11, 2024 8:30am 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 July 11 8:30am Non-pressure chronic ulcer o f right heel and 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 chronic July 11, 2024 8:30am 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 Patient has had surgery and treatment through wound care so son is thinking he doesn't need to be seen here. [facility] encounter Note * Telephone Encounter - Kira Carrasco - 04/20/2024 8:52 AM EDT Called patient to reschedule. Spoke with son Romina who stated patient is at [facility] and will probably stay there for chcf care. Patient has had surgery and treatment through wound care so son is thinking he doesn't need to be seen here. Kira Carrasco [facility]10[facility] Note. MICRO - Microbiology PROCEDURE: Blood Culture (bacterial) [*1] SOURCE: Blood BODY SITE: COLLECTED DATE/TIME: 04/06/2024 09:59 EDT RECEIVED DATE/TIME: 04/06/2024 17:50 EDT START DATE/TIME: 04/06/2024 17:50 EDT FREE TEXT SOURCE: FINAL REPORTS Final Report [] Verified Date/Time/Personnel: 04/11/2024 17:59 EDT Blood Culture: No Growth at 5 days. PRELIMINARY REPORTS Preliminary Report [] Verified Date/Time/Personnel: 04/06/2024 19:00 EDT Culture has been received in lab and is no growth to date. Routine cultures are held for 5 days. Performing Locations *1: This test was performed at: [facility], [address] [place] [address], [address] [place], [place] [address]10-01-2024 Note. MICRO - Microbiology PROCEDURE: Blood Culture (bacterial) [*1] SOURCE: Blood BODY SITE: COLLECTED DATE/TIME: 04/06/2024 09:59 EDT RECEIVED DATE/TIME: 04/06/2024 17:50 EDT START DATE/TIME: 04/06/2024 17:50 EDT FREE TEXT SOURCE: FINAL REPORTS Final Report [] Verified Date/Time/Personnel: 04/11/2024 17:59 EDT Blood Culture: No Growth at 5 days. PRELIMINARY REPORTS Preliminary Report [] Verified Date/Time/Personnel: 04/06/2024 19:00 EDT Culture has been received in lab and is no growth to date. Routine cultures are held for 5 days. Performing Locations *1: This test was performed at: [address], [facility] , [facility]09[facility]28-2024 Hospital Discharge instructions Patient Education 04/08/2024 10:07:28 Dehydration, Adult Dehydration, Adult Dehydration is a condition in which there is not enough fluid or water in the body. This happens when you lose more fluids than you take in. Important organs, such as the kidneys, brain, and heart, cannot function without a proper amount of fluids. Any loss of fluids from the body can lead to dehydration. Dehydration can range from mild to severe. This condition should be treated right away to prevent it from becoming severe. What are the causes? This condition may be caused by: Vomiting. Diarrhea. Excessive sweating, such as from heat exposure or exercise. Not drinking enough fluid, especially: ?When ill. ?While doing activity that requires a lot of energy. Excessive urination. Fever. Infection. Certain medicines, such as medicines that cause the body to lose excess fluid (diuretics). Inability to access safe drinking water. Reduced physical ability to get adequate water and food. What increases the risk? This condition is more likely to develop in people: Who have a poorly controlled long-term (chronic) illness, such as diabetes, heart disease, or kidney disease. Who are age 65 or older. Who are disabled. Who live in a place with high altitude. Who play endurance sports. What are the signs or symptoms? Symptoms of mild dehydration may include: Thirst. Dry lips. Slightly dry mouth. Dry, warm skin. Dizziness. Symptoms of moderate dehydration may include: Very dry mouth. Muscle cramps. Dark urine. Urine may be the color of tea. Decreased urine production. Decreased tear production. Heartbeat that is irregular or faster than normal (palpitations). Headache. Light-headedness, especially when you stand up from a sitting position. Fainting (syncope). Symptoms of severe dehydration may include: Changes in skin, such as: ?Cold and clammy skin. ?Blotchy (mottled) or pale skin. ?Skin that does not quickly return to normal after being lightly pinched and released (poor skin turgor). Changes in body fluids, such as: ?Extreme thirst. ?No tear production. ?Inability to sweat when body temperature is high, such as in hot weather. ?Very little urine production. Changes in vital signs, such as: ?Weak pulse. ?Pulse that is more than 100 beats a minute when sitting still. ?Rapid breathing. ?Low blood pressure. Other changes, such as: ?Sunken eyes. ?Cold hands and feet. ?Confusion. ?Lack of energy (lethargy). ?Difficulty waking up from sleep. ?Short-term weight loss. ?Unconsciousness. How is this diagnosed? This condition is diagnosed based on your symptoms and a physical exam. Blood and urine tests may be done to help confirm the diagnosis. How is this treated? Treatment for this condition depends on the severity. Mild or moderate dehydration can often be treated at home. Treatment should be started right away. Do not wait until dehydration becomes severe. Severe dehydration is an emergency and it needs to be treated in a hospital. Treatment for mild dehydration may include: Drinking more fluids. Replacing salts and minerals in your blood (electrolytes) that you may have lost. Treatment for moderate dehydration may include: Drinking an oral rehydration solution (ORS). This is a drink that helps you replace fluids and electrolytes (rehydrate). It can be found at pharmacies and retail stores. Treatment for severe dehydration may include: Receiving fluids through an IV tube. Receiving an electrolyte solution through a feeding tube that is passed through your nose and into your stomach (nasogastric tube, or NG tube). Correcting any abnormalities in electrolytes. Treating the underlying cause of dehydration. Follow these instructions at home: If directed by your health care provider, drink an ORS: ?Make an ORS by following instructions on the package. ?Start by drinking small amounts, about cup (120 mL) every 5 10 minutes. ?Slowly increase how much you drink until you have taken the amount recommended by your health careprovider. Drink enough clear fluid to keep your urine clear or pale yellow. If you were told to drink an ORS,finish the ORS first, then start slowly drinking other clear fluids. Drink fluids such as: ?Water. Do not drink only water. Doing that can lead to having too little salt (sodium) in the body(hyponatremia). ?Ice chips. ?Fruit juice that you have added water to (diluted fruit juice). ?Low-calorie sports drinks. Avoid: ?Alcohol. ?Drinks that contain a lot of sugar. These include high-calorie sports drinks, fruit juice that is not diluted, and soda. ?Caffeine. ?Foods that are greasy or contain a lot of fat or sugar. Take cywy-ltb-brstbea and prescription medicines only as told by your health care provider. Do not take sodium tablets. This can lead to having too much sodium in the body (hypernatremia). Eat foods that contain a healthy balance of electrolytes, such as bananas, oranges, potatoes, tomatoes, and spinach. Keep all follow-up visits as told by your health care provider. This is important. Contact a health care provider if: You have abdominal pain that: ?Gets worse. ?Stays in one area (localizes). You have a rash. You have a stiff neck. You are more irritable than usual. You are sleepier or more difficult to wake up than usual. You feel weak or dizzy. You feel very thirsty. You have urinated only a small amount of very dark urine over 6 8 hours. Get help right away if: You have symptoms of severe dehydration. You cannot drink fluids without vomiting. Your symptoms get worse with treatment. You have a fever. You have a severe headache. You have vomiting or diarrhea that: ?Gets worse. ?Does not go away. You have blood or green matter (bile) in your vomit. You have blood in your stool. This may cause stool to look black and tarry. You have not urinated in 6 8 hours. You faint. Your heart rate while sitting still is over 100 beats a minute. You have trouble breathing. This information is not intended to replace advice given to you by your health care provider. Make sure you discuss any questions you have with your health care provider. Document Released: 06/28/2006 Document Revised: 06/10/2018 Document Reviewed: 08/21/2016 [employer] Patient Education 2020 [employer]. Follow Up Care 04/06/2024 09:27:35 With:KELLIE BENITES Address: [address] [place] [phone] When: [facility] 09[facility]28-[facility]24 Note Discharge Instructions Thank you for allowing [facility] to assist you with your healthcare needs. The following is importantdischarge information regarding your hospital visit. Your Care Team [facility] Your Diagnosis Abdominal pain Atrial flutter CKD stage 3 due to type 2 diabetes mellitus Diabetes mellitus type 2 Groin abscess Weakness What to do next Scheduled Follow-Up Appointments Appointment Type When With Where Contact Information StatusPC OV 04/13/2024 11:00 AM EDT KELLIE BENITES [address] [phone] Confirmed CV OV 06/14/2024 09:30 AM EST GAVINO AG [facility]VC Confirmed Follow Up Appointments Follow Up with KELLIE BENITES Where:[address] [place] [phone] The Following Activity and Diet Have Been Ordered for You Transfer of Care Activity - Ordered -- As instructed by therapy, 04/08/24 8:39:00 EDT Transfer of Care Diet - Ordered -- Type of Diet: Regular Diet, 04/08/24 8:39:00 EDT The Following Treatments Have Been Ordered for You Discharge Labs No qualifying data available. Discharge Radiology No qualifying data available. Other Therapies Transfer of Care OT - Ordered -- Reason for therapy: weakness, 04/08/24 8:39:00 EDT Transfer of Care PT - Ordered -- Reason for therapy: Weakness, 04/08/24 8:39:00 EDT Post Acute Orders Transfer of Care Admission Level of Care - Ordered -- Level of Care SNF, 04/08/24 8:39:23 EDT Transfer of Care Code Status - Ordered -- Full Code, Constant Order Transfer of Care Orders Electronically Signed By - Ordered -- 04/08/24 8:39:00 EDT, MIRELA OLIVO APRN-REGAN Transfer of Care Oxygen Therapy - Ordered -- Oxygen (CONTINUOUS), Mobile in the Home, Nasal Cannula, 2 liters per minute, 999 month(s), 04/08/24 8:39:00 EDT Transfer of Care Prognosis - Ordered -- Fair, Patient Aware: Yes Transfer of Care Rehab Potential - Ordered -- Rehab potential fair, 04/08/24 8:39:23 EDT Allergies Nuprin Unknown misc non-codified allergy unknown Medications Please ask your primary doctor or pharmacist before taking any other medication not listed, including over the counter drugs, herbal medications, vitamins and or supplements as they may interact withyour home medications. What How Much When Why Instructions Last Dose New doxycycline (doxycycline hyclate 100 mg oral capsule) 1 cap by mouth Two (2) times a day Duration: 7 Days Pickup at [facility] 04/08/24 8:57a.m. Changed amLODIPine (Norvasc 5 mg oral tablet) 1 tab(s) by mouth Once a day 04/08/24 8:57a.m. Changed melatonin (melatonin 3 mg oral tablet) 1 tab(s) by mouth Daily at bedtime as needed for Sleep 03/2624 9:19p.m. Unchanged apixaban (Eliquis 5 mg oral tablet) 1 tab(s) by mouth Two (2) times a day 04/08/24 8:57a.m. Unchanged ascorbic acid (Vitamin C 250 mg oral tablet) 1 tab(s) by mouth Once a day None Unchanged aspirin (aspirin 81 mg oral tablet, chewable) 1 tab(s) Chewed Once a day Duration: 30 Days 04/08/24 8:57a.m. Unchanged atorvastatin (atorvastatin 20 mg oral tablet) 1 tab(s) by mouth Once a day Diabetes mellitus type 2 Duration: 90 Days 04/07/24 9:34p.m. Unchanged bumetanide (bumetanide 1 mg oral tablet) 1 tab(s) by mouth Two (2) times a day None Unchanged cephalexin (cephalexin 500 mg oral capsule) 1 cap by mouth Four (4) times a day Duration: 10 Days None Unchanged collagenase topical (Santyl) Topical Once a day None Unchanged DME (UBmatrixStyle Anai 2 Agate) See Instructions Use reader to scan sensor daily for blood sugar checks. Scan at least once every 8 hours None Unchanged DME (FreeStyle Agate 14 day sensor) See Instructions 1 month supply None Unchanged docusate-senna (Senna Plus 50 mg-8.6 mg oral tablet) 2 tab(s) by mouth Daily at bedtime 04/07/24 9:34a.m. Unchanged empagliflozin (Jardiance 10 mg oral tablet) 1 tab(s) by mouth Once a day (in the morning) None Unchanged empagliflozin (Jardiance 10 mg oral tablet) 1 tab(s) by mouth Once a day (in the morning) None Unchanged fluticasone-salmeterol (fluticasone-salmeterol 250 mcg-50 mcg inhalation powder) 1 puff(s) by inhalation Two (2) times a day None Unchanged gabapentin (gabapentin 300 mg oral capsule) 1 cap by mouth Three (3) times a day 04/08/24 8:57a.m. Unchanged insulin glargine (Lantus 100 units/ mL10 ml vial solution) 75 unit(s) Subcutaneous (INT) Once a day 04/08/24 8:00a.m. Unchanged menthol-zinc oxide topical (Calmoseptine 0.44%-20.6% topical ointment) 1 application Topical Three (3) times a day as needed for jorden buttocks clean affected area before application None Unchanged nystatin topical (nystatin 100,000 units/ g topical powder) 1 application Topical Three (3) times a day folds None Unchanged polyethylene glycol 3350 (MiraLax oral powder for reconstitution) 17 gram(s) by mouth Two (2) times a day as needed for Constipation None Unchanged potassium chloride (Potassium Chloride (Eqv-K-Tab) 20 mEq oral tablet, extended release) 1 tab(s) by mouth Two (2) times a day None Unchanged sertraline (Zoloft 50 mg oral tablet) 1 tab(s) by mouth Once a day 04/08/24 8:57a.m. Unchanged tamsulosin (tamsulosin 0.4 mg oral capsule) 1CAP by mouth Once a day 04/08/24 8:57a.m. Unchanged tirzepatide (Mounjaro 5 mg/ 0.5 mL subcutaneous solution) 5 Milligram Subcutaneous Every week None Pharmacy Information [facility]: [id number] [place] [phone] What How Much When Why Comments Stop Taking acetaminophen (acetaminophen 500 mg oral tablet) 2 tab(s) by mouth Three (3) times a day as needed for pain or fever 04/07/24 12:46a.m. Stop Taking acetaminophen-hydrocodone (Thaxton 325- 5 mg oral tablet) 1 tab(s) by mouth Every 6 hours as needed for as needed for pain Abdominal pain Duration: 3 Days 04/07/24 11:27p.m. Stop Taking oxyCODONE (oxyCODONE 5 mg oral tablet ( IMMEDIATE release )) 2 tab(s) by mouth Every 6 hours as needed for severe pain None Stop Taking sulfamethoxazole-trimethoprim (Bactrim DS 800 mg-160 mg oral tablet) 1 tab(s) by mouth Two (2) times a day Duration: 10 Days Please take this list to your next doctor s visit. Bring all medications you take, including over the counter medications, herbals and other supplements with you to your doctor s visit. Patients and families are reminded to discard old lists and to update any records with all medication providers or retail pharmacies. Medication Leaflets doxycycline (oral/injection) (DOX darrel humphrey) Acticlate, Adoxa, Alodox, Avidoxy, Doryx, Doryx MPC, Lymepak, Mondoxyne NL, Monodox, Morgidox, Morgidox [id number], Morgidox [id number], Okebo, Oracea, Targadox, Vibramycin, Vibramycin Monohydrate What is the most important information I should know about doxycycline? You should not take this medicine if you are allergic to any tetracycline antibiotic. Children younger than 8 years old should use doxycycline only in cases of severe or life-threatening conditions. This medicine can cause permanent yellowing or graying of the teeth in children Using doxycycline during could harm the unborn baby or cause permanent tooth discoloration later in the baby's life. What is doxycycline? Doxycycline is a tetracycline antibiotic that Doxycycline is used to treat many different bacterial infections, such as acne, urinary tract infections, intestinal infections, eye infections, gonorrhea, chlamydia, periodontitis (gum disease), andothers. Doxycycline is also used to treat blemishes, bumps, and acne-like lesions caused by rosacea. Doxycycline will not treat facial redness caused by rosacea. Some forms of doxycycline are used to prevent malaria, to treat anthrax, or to treat infections caused by mites, ticks, or lice. Doxycycline may also be used for purposes not listed in this medication guide. What should I discuss with my healthcare provider before taking doxycycline? You should not take this medicine if you are allergic to doxycycline or other tetracycline antibiotics such as demeclocycline, minocycline, tetracycline, or tigecycline. Tell your doctor if you have ever had: liver disease; kidney disease; asthma or sulfite allergy; increased pressure inside your skull; or if you also take isotretinoin, seizure medicine, or a blood thinner such as warfarin (Coumadin). If you are using doxycycline to treat gonorrhea, your doctor may test you to make sure you do not also have syphilis, another sexually transmitted disease. Taking this medicine during may affect tooth and bone development in the unborn baby. Taking doxycycline during the last half of can cause permanent tooth discoloration later in the baby's life. Tell your doctor if you are or if you become . Doxycycline can make control pills less effective. Ask your doctor about using a non-hormonalbirth control (condom, diaphragm with spermicide) to prevent . Doxycycline can pass into breast milk and may affect bone and tooth development in a nursing . Do not breastfeed while you are taking doxycycline. Doxycycline can cause permanent yellowing or graying of the teeth in children younger than 8 years old. Children should use doxycycline only in cases of severe or life-threatening conditions such as anthrax or Johnston spotted fever. The benefit of treating a serious condition may outweigh any risks to the child's tooth development. How should I take doxycycline? Follow all directions on your prescription label and read all medication guides or instruction sheets. Use the medicine exactly as directed. Take doxycycline with a full glass of water. Drink plenty of liquids while you are taking doxycycline. Read and carefully follow any Instructions for Use provided with your medicine. Ask your doctor or pharmacist if you do not understand these instructions. Most brands of doxycyline may be taken with food or milk if the medicine upsets your stomach. Different brands of doxycycline may have different instructions about taking them with or without food. Take Oracea on an empty stomach, at least 1 hour before or 2 hours after a meal. You may need to split a doxycycline tablet to get the correct dose. Follow your doctor's instructions. Swallow a delayed-release capsule or tablet whole. Do not crush, chew, break, or open it. Measure liquid medicine with the dosing syringe provided, or with a special dose-measuring spoon ormedicine cup. If you do not have a dose-measuring device, ask your pharmacist for one. If you take doxycycline to prevent malaria: Start taking the medicine 1 or 2 days before entering an area where malaria is common. Continue taking the medicine every day during your stay and for at least 4 weeks after you leave the area. Doxycycline is usually given by injection only if you are unable to take the medicine by mouth. A healthcare provider will give you this injection as an infusion into a vein. Use this medicine for the full prescribed length of time, even if your symptoms quickly improve. Skipping doses can increase your risk of infection that is resistant to medication. Doxycycline will not treat a viral infection such as the flu or a common cold. Store at room temperature away from moisture, heat, and light. Throw away any unused medicine after the expiration date on the label has passed. Using doxycycline can cause damage to your kidneys. What happens if I miss a dose? Take the medicine as soon as you can, but skip the missed dose if it is almost time for your next dose. Do not take two doses at one time. What happens if I overdose? Seek emergency medical attention or call the Poison Help line at . What should I avoid while taking doxycycline? Do not take iron supplements, multivitamins, calcium supplements, antacids, or laxatives within 2 hours before or after taking doxycycline. Avoid taking any other antibiotics with doxycycline unless your doctor has told you to. Doxycycline could make you sunburn more easily. Avoid sunlight or tanning beds. Wear protective clothing and use sunscreen (SPF 30 or higher) when you are outdoors. Antibiotic medicines can cause diarrhea, which may be a sign of a new infection. If you have diarrhea that is watery or bloody, call your doctor. Do not use anti-diarrhea medicine unless your doctor tells you to. What are the possible side effects of doxycycline? Get emergency medical help if you have signs of an allergic reaction (hives, difficult breathing, swelling in your face or throat) or a severe skin reaction (fever, sore throat, burning in your eyes,skin pain, red or purple skin rash that spreads and causes blistering and peeling). Seek medical treatment if you have a serious drug reaction that can affect many parts of your body.Symptoms may include: skin rash, fever, swollen glands, flu- like symptoms, muscle aches, severe weakness, unusual bruising, or yellowing of your skin or eyes. This reaction may occur several weeks after you began using doxycycline. Call your doctor at once if you have: severe stomach pain, diarrhea that is watery or bloody; throat irritation, trouble swallowing; chest pain, irregular heart rhythm, feeling short of breath; little or no urination; low white blood cell counts--fever, chills, swollen glands, body aches, weakness, pale skin, easy bruising or bleeding; increased pressure inside the skull--severe headaches, ringing in your ears, dizziness, nausea, vision problems, pain behind your eyes; or signs of liver or pancreas problems--loss of appetite, upper stomach pain (that may spread to your back), tiredness, nausea or vomiting, fast heart rate, dark urine, jaundice (yellowing of the skin or eyes). Common side effects may include: nausea, vomiting, upset stomach, loss of appetite; mild diarrhea; skin rash or itching; darkened skin color; or vaginal itching or discharge. This is not a complete list of side effects and others may occur. Call your doctor for medical advice about side effects. You may report side effects to FDA at 7-109-NFM-4540. What other drugs will affect doxycycline? Sometimes it is not safe to use certain medications at the same time. Some drugs can affect your blood levels of other drugs you take, which may increase side effects or make the medications less effective. Other drugs may affect doxycycline, including prescription and cxbx-mns-phyiepm medicines, vitamins, and herbal products. Tell your doctor about all your current medicines and any medicine you start or stop using. Where can I get more information? Your pharmacist can provide more information about doxycycline. Remember, keep this and all other medicines out of the reach of children, never share your medicines with others, and use this medication only for the indication prescribed. Every effort has been made to ensure that the information provided by [employer]. ('[employer]') is accurate, up-to-date, and complete, but no guarantee is made to that effect. Drug information contained herein may be time sensitive. [employer] information has been compiled for use by healthcare practitioners and consumers in the [place] and therefore [employer] does not warrant that uses outside of the [place] are appropriate, unless specifically indicated otherwise. [employer] drug information does not endorse drugs, diagnose patients or recommend therapy. [employer] drug information isan informational resource designed to assist licensed healthcare practitioners in caring for their p atients and/or to serve consumers viewing this service as a supplement to, and not a substitute for, the expertise, skill, knowledge and judgment of healthcare practitioners. The absence of a warningfor a given drug or drug combination in no way should be construed to indicate that the drug or drug combination is safe, effective or appropriate for any given patient. [employer] does not assume any responsibility for any aspect of healthcare administered with the aid of information [employer] provides. The information contained herein is not intended to cover all possible uses, directions, precautions, warnings, drug interactions, allergic reactions, or adverse effects. If you have questions about the drugs you are taking, check with your doctor, nurse or pharmacist. Copyright 7379-0912 [employer]. Version: 25.. Revision Date: 03/17/2023. Education Materials Dehydration, Adult Dehydration is a condition in which there is not enough fluid or water in the body. This happens when you lose more fluids than you take in. Important organs, such as the kidneys, brain, and heart, cannot function without a proper amount of fluids. Any loss of fluids from the body can lead to dehydration. Dehydration can range from mild to severe. This condition should be treated right away to prevent it from becoming severe. What are the causes? This condition may be caused by: Vomiting. Diarrhea. Excessive sweating, such as from heat exposure or exercise. Not drinking enough fluid, especially: ? When ill. ? While doing activity that requires a lot of energy. Excessive urination. Fever. Infection. Certain medicines, such as medicines that cause the body to lose excess fluid (diuretics). Inability to access safe drinking water. Reduced physical ability to get adequate water and food. What increases the risk? This condition is more likely to develop in people: Who have a poorly controlled long-term (chronic) illness, such as diabetes, heart disease, or kidney disease. Who are age 65 or older. Who are disabled. Who live in a place with high altitude. Who play endurance sports. What are the signs or symptoms? Symptoms of mild dehydration may include: Thirst. Dry lips. Slightly dry mouth. Dry, warm skin. Dizziness. Symptoms of moderate dehydration may include: Very dry mouth. Muscle cramps. Dark urine. Urine may be the color of tea. Decreased urine production. Decreased tear production. Heartbeat that is irregular or faster than normal (palpitations). Headache. Light-headedness, especially when you stand up from a sitting position. Fainting (syncope). Symptoms of severe dehydration may include: Changes in skin, such as: ? Cold and clammy skin. ? Blotchy (mottled) or pale skin. ? Skin that does not quickly return to normal after being lightly pinched and released (poor skin turgor). Changes in body fluids, such as: ? Extreme thirst. ? No tear production. ? Inability to sweat when body temperature is high, such as in hot weather. ? Very little urine production. Changes in vital signs, such as: ? Weak pulse. ? Pulse that is more than 100 beats a minute when sitting still. ? Rapid breathing. ? Low blood pressure. Other changes, such as: ? Sunken eyes. ? Cold hands and feet. ? Confusion. ? Lack of energy (lethargy). ? Difficulty waking up from sleep. ? Short-term weight loss. ? Unconsciousness. How is this diagnosed? This condition is diagnosed based on your symptoms and a physical exam. Blood and urine tests may be done to help confirm the diagnosis. How is this treated? Treatment for this condition depends on the severity. Mild or moderate dehydration can often be treated at home. Treatment should be started right away. Do not wait until dehydration becomes severe. Severe dehydration is an emergency and it needs to be treated in a hospital. Treatment for mild dehydration may include: Drinking more fluids. Replacing salts and minerals in your blood (electrolytes) that you may have lost. Treatment for moderate dehydration may include: Drinking an oral rehydration solution (ORS). This is a drink that helps you replace fluids and electrolytes (rehydrate). It can be found at pharmacies and retail stores. Treatment for severe dehydration may include: Receiving fluids through an IV tube. Receiving an electrolyte solution through a feeding tube that is passed through your nose and into your stomach (nasogastric tube, or NG tube). Correcting any abnormalities in electrolytes. Treating the underlying cause of dehydration. Follow these instructions at home: If directed by your health care provider, drink an ORS: ? Make an ORS by following instructions on the package. ? Start by drinking small amounts, about cup (120 mL) every 5 10 minutes. ? Slowly increase how much you drink until you have taken the amount recommended by your health care provider. Drink enough clear fluid to keep your urine clear or pale yellow. If you were told to drink an ORS,finish the ORS first, then start slowly drinking other clear fluids. Drink fluids such as: ? Water. Do not drink only water. Doing that can lead to having too little salt (sodium) in the body (hyponatremia). ? Ice chips. ? Fruit juice that you have added water to (diluted fruit juice). ? Low-calorie sports drinks. Avoid: ? Alcohol. ? Drinks that contain a lot of sugar. These include high-calorie sports drinks, fruit juice that is not diluted, and soda. ? Caffeine. ? Foods that are greasy or contain a lot of fat or sugar. Take jgpr-jhs-aaydvbk and prescription medicines only as told by your health care provider. Do not take sodium tablets. This can lead to having too much sodium in the body (hypernatremia). Eat foods that contain a healthy balance of electrolytes, such as bananas, oranges, potatoes, tomatoes, and spinach. Keep all follow-up visits as told by your health care provider. This is important. Contact a health care provider if: You have abdominal pain that: ? Gets worse. ? Stays in one area (localizes). You have a rash. You have a stiff neck. You are more irritable than usual. You are sleepier or more difficult to wake up than usual. You feel weak or dizzy. You feel very thirsty. You have urinated only a small amount of very dark urine over 6 8 hours. Get help right away if: You have symptoms of severe dehydration. You cannot drink fluids without vomiting. Your symptoms get worse with treatment. You have a fever. You have a severe headache. You have vomiting or diarrhea that: ? Gets worse. ? Does not go away. You have blood or green matter (bile) in your vomit. You have blood in your stool. This may cause stool to look black and tarry. You have not urinated in 6 8 hours. You faint. Your heart rate while sitting still is over 100 beats a minute. You have trouble breathing. This information is not intended to replace advice given to you by your health care provider. Make sure you discuss any questions you have with your health care provider. Document Released: 06/28/2006 Document Revised: 06/10/2018 Document Reviewed: 08/21/2016 [employer] Patient Education 2020 [employer] Additional Information VACCINATE! IT SAVES LIVES! Members of the community who have not yet received the COVID-19 vaccine and would like to receive it can visit one of [facility] vaccine clinics. There are many vaccine clinic locations within the [facility]. For locations and available times, please visit https://[email or web address].[place].gov/. It is important to note that some COVID mobile vaccine clinics are held outdoors and may be canceled in rainy or stormy conditions. To learn more about pediatric vaccinations (ages 5-11), we invite you to visit the [facility] webpage. [email or web address].[email or web address].org/pages/[email or web address]-Cvsrt-Agsdexbqnfs-[email or web address]-Wljuo-Xgp stions.htmlTo learn more about the COVID-19 vaccine, we invite you to visit the CDC website for a list of frequently asked questions.https://www.cdc.gov/coronavirus/2019-ncov/vaccines/faq.html [email or web address] Patient Portal Access Instructions: Stay connected with your healthcare team and access your personal medical information anytime with the [employer] Patient Portal. Please follow the directions below to create your [email or web address] account: 1.Access the email account you provided upon registration to the hospital/physician office.2.Look for an invitation email from [facility].3.Open the email and access the invitation link: AcceptInvitation to [email or web address].4.Fill in the required breen to create your account. To access your account, visit [employer]. Click the blue button labeled Access Patient Portal and then log in with the username and password that you created in the steps above. You will be able to view your test results, lab results, a summary of your visits, upcoming appointments and more. There is also a convenient messaging option where you can send secure messages to your p rovider. In addition, you will have the ability to download any documents or summaries to your computer and/or send the information securely to a physician. Remember that your healthcare information is confidential, so carefully consider who you will allowto register on the [facility] for access to your information. You can also access the [facility] on the [place] [facility] priscilla. Simply click on Patient Portal and then log into your account. If you would like to receive a full copy of your medical records, please contact the [facility] Medical Records Department by calling [phone], Wednesday through Wednesday between 8 a.m. and 4:30 p.m. HOW TO SAFELY DISPOSE OF PRESCRIPTION MEDICATIONS Please use one of the following methods to safely dispose of your unused medications. 1.Use a drug disposal kit: the drug disposal pouch allows you to safely discard your old and unuseddrugs. Ask your nurse to give you one when you are discharged.2.Visit a local take-back location: Many local pharmacies and police departments have programs that collect old and unwanted prescriptiondrugs. Call your local pharmacy or go to http://Wikidot.Rebit/9I3Kl9o to find one close to you.3.Make use of household items: Use cat litter or old coffee grounds to dispose medications if other options arenot available. Mix your drugs with these household products, seal them in an airtight container andthrow it into the garbage. Call [facility]: [phone] to be sure your drugs can be disposed of in this way. Some medicines may require a different approach.4.Never flush your medications down the toilet. IF YOU HAVE BEEN PRESCRIBED AN OPIOID FOR PAIN If you have been prescribed an opioid (such as hydrocodone, oxycodone or morphine), it is critical to understand the possible side effects and risks of opioid pain medications. Even when taken as directed, opioids can have several side effects including: Tolerance, meaning you might need to take more of a medication for the same pain relief. Nausea, vomiting and/or constipation. Sleepiness, dizziness, dry mouth, confusion, depression or itching. Physical dependence, meaning you have withdrawal symptoms when a medication is stopped, can develop within a few days. KNOW YOUR RESPONSIBILITIES It is important to know exactly how much and how often to take the opioid pain medications you are prescribed. Never take opioids in higher amounts or more often than prescribed. Do not combine opioids with alcohol or other drugs that cause drowsiness, such as benzodiazepines, also known as benzos, including diazepam and alprazolam, muscle relaxants or sleep aids. Never sell or share prescription opioids. This is illegal. Store opioids in a secure place and out of reach of others (including children, family, friends and visitors). The last page of this document has been signed and retained as a CHART COPY. Signatures Patient Education Materials Dehydration, Adult Medication Leaflets doxycycline (oral/injection) My discharge plan and instructions have been reviewed and explained to me and I,JADON ALVAREZ understand my current condition and have read and understand these discharge instructions. I have received a written copy of the plan/instructions. If I have questions, I am aware that I should contact my doctor. 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 MICRO - Microbiology PROCEDURE: Urine Culture [O1 *1] SOURCE: Urine, Martines Catheter BODY SITE: COLLECTED DATE/TIME: 04/06/2024 09:59 EDT RECEIVED DATE/TIME: 04/06/2024 13:19 EDT START DATE/TIME: 04/06/2024 13:19 EDT FREE TEXT SOURCE: FINAL REPORTS Final Report [] Verified Date/Time/Personnel: 04/08/2024 08:41 EDT 10,000 - 50,000 cfu/ml Methicillin-Resistant Staphylococcus aureus PRELIMINARY REPORTS Preliminary Report [] Verified Date/Time/Personnel: 04/07/2024 12:33 EDT 10,000 - 50,000 cfu/ml Staphylococcus aureus KIARA to follow SUSCEPTIBILITY RESULTS Methicillin-Resistant Staphylococcus aureus Antibiotic KIARA Dilut KIARA Inter Ampicillin/ <=8/4 Resistant Sulbactam Azithromycin >4 Resistant Ceftaroline <=0.5 Susceptible Ciprofloxacin >2 Resistant Daptomycin <=0.5 Susceptible ID Panel Not Not Applicable Applicable Levofloxacin >4 Resistant Linezolid 2 Susceptible Nitrofurantoin <=32 Susceptible Oxacillin >2 Resistant Penicillin >2 Resistant Trimethoprim/ <=0.5/9.5 Susceptible Sulfa Vancomycin 0.5 Susceptible Order Comments O1: Urine Culture Added by Discern Performing Locations *1: This test was performed at: [facility], [address] [place] [address], [facility] , [facility]09-27-2024 Note Date of Service 04/07/2024 Chief Complaint Weakness Subjective 68-year-old male with past medical history significant for atrial flutter, HFpEF, CKD Stage 3, PAWEL,DVT, BPH, AV replacement, type 2 diabetes mellitus, morbid obesity Patient was in the emergency department on 04/04/2024 with a 1 day history of abdominal pain. He wasjust discharged from SNF on 03/30/2024. He thought he would be able to care for himself at home but he was struggling with this. He has a chronic indwelling Martines catheter. He had a CT of the abdomen pelvis at that time that showed gaseous distention of the sigmoid colon with decompressed upstream and downstream segments. No twisting of the mesentery at the time of exam. Martines catheter balloon wasinflated within the prostatic urethra. Martines catheter was repositioned. Patient once noted to have a left inguinal abscess. I&D was done. Patient was given Rocephin for cellulitis and bacteriuria. He was discharged with Keflex and Bactrim. Patient return to the emergency department on 04/06/2024via EMS due to weakness and inability to care for himself at home. In the emergency department he was afebrile, bradycardic, normotensive with adequate oxygenation on room air. No leukocytosis. Urinalysis positive for nitrates and 2+ bacteria. Loaded WBCs. Specific gravity greater than 1.030. Creatinine 1.48 with a GFR 47. 2 days ago it was 1.33 and 53 respectively. X-ray chest showed low lung volumes and hypoventilatory changes. Patient was given 500 mL liter normal saline bolus and subsequently admitted. Patient was initiated on ceftriaxone and doxycycline Due to groin abscess. This was not cultured. Urine culture from 04/04 shows probable contamination. Patient has been afebrile and hemodynamically stable. No leukocytosis. On exam today he denies any fever or chills. No chest pain or dyspnea. Foleycatheter is in place. Denies any pain from groin abscess or leg wounds. Patient is very distraught a bout his living situation. He recognizes that he is not safe to be at home and states that his son cannot care for him. He tells me that if he goes home he will . He also does not want to go to a alf as his son lives in his home. When I advised him that he would need to apply for Medicaid he stated that his son will never allow that to happen. I explained to the patient that he is decisional and his sons POA status only applies if patient is unable to make decisions on his own. Today he has no complaints. Objective Vitals and Measurements T: 36.7 C (Oral) TMIN: 36.5 C (Oral) TMAX: 36.7 C (Oral) HR: 50 (Monitored) RR: 16 BP: 136/66 SpO2:95% HT: 188 cm WT: 133.4 kg BMI: 37.32 Intake and Output 7AM Yesterday to 7AM Today Intake and Output (Last 24 hours) Intake Oral Intake 690.00 Administration Information 1518.33 Output Urinary Catheter Output: 1150.00 Stool Count 0.00 Emesis Count 0.00 Total Summary Total Intake 2208.33 Total Output 1150.00 Fluid Balance 1058.33 Physical Exam GEN: Appears chronically ill CHEST: Normal S1 and S2. Rhythm is regular. Clear to auscultation, without rales, rhonchi, wheezing. ABD: Positive bowel sounds x 4 quads. Soft,obese, nondistended, nontender. EXT: No significant deformity or joint abnormality. No edema. Peripheral pulses intact. NEURO: Sensation grossly intact SKIN: Left groin abscess with packing. Wound RLE and Left lateral heel. PSYCH: The mental examination revealed the patient was alert and oriented x 4. Apathetic. Images 2024-04-06 15:32:29 2024-04-06 15:35:55 2024-04-06 15:37:47 Weight Current Weight Dosing Weight: 131.9 kg (04/06/24) Current Weight: 133.4 kg (04/07/24) Dosing Weight: 131.9 kg (04/06/24) Medications Medications (23) Active Scheduled: (12) amLODIPine 5 mg tablet 5 mg 1 tab(s), Oral, qDay apixaban 5 mg tablet 5 mg 1 tab(s), Oral, BID aspirin 81 mg Chewable 81 mg 1 tab(s), Chewed, qDay atorvastatin 10 mg tablet 20 mg 2 tab(s), Oral, qDay cefTRIAXone 1 gram(s), IV Piggyback, qDay docusate-senna (Senokot S) 50 mg-8.6 mg Tablet 2 tab(s), Oral, qHS doxycycline hyclate 100 mg Capsule 100 mg 1 cap(s), Oral, BID gabapentin 300 mg Capsule 300 mg 1 cap(s), Oral, TID insulin glargine 100 units/ml solution 75 unit(s) 0.75 mL, Subcutaneous, qDay insulin lispro 100 units/mL Soln COA (3 mL) Give 0-5 units/dose, Subcutaneous, TIDAC sertraline 50 mg tablet 50 mg 1 tab(s), Oral, qDay tamsulosin 0.4 mg Capsule 0.4 mg 1 cap(s), Oral, qDay Continuous: (0) PRN: (11) acetaminophen 325 mg Tablet 650 mg 2 tab(s), Oral, q4h acetaminophen 325 mg Tablet 650 mg 2 tab(s), Oral, q4h acetaminophen-HYDROcodone 325-5 mg tablet 1 tab(s), Oral, q6h benzonatate 100 mg Capsule 100 mg 1 cap(s), Oral, TID calcium carbonate 500 mg Chewable 500 mg 1 tab(s), Chewed, TID dextrose 50% Solution Disp syringe 50 mL 25 gram(s) 50 mL, IV Push, AsDirected docusate sodium 100 mg Capsule 100 mg 1 cap(s), Oral, BID emollients (Desitin) 1 priscilla, Topical, AsDirected guaifenesin 100 mg/5 mL Liquid SUGAR-FREE 120 mL 200 mg 10 mL, Oral, q4h melatonin 3 mg tablet 6 mg 2 tab(s), Oral, qHS ondansetron 2 mg/ 1 mL 2 mL INJ 4 mg 2 mL, IV Push, q4h Lab Results 04/07 05:32 WBC: 5.8 Hgb: 11.5 L Hct: 36.2 L Platelet: 171 Neutrophil %: 68.0 Glucose Level: 101 Sodium Level: 137 Potassium Level: 4.7 BUN: 19 H Creatinine Lvl (s): 1.19 04/06 09:59 WBC: 5.6 Hgb: 12.4 L Hct: 38.6 L Platelet: 183 Neutrophil %: 75.1 H Glucose Level: 108 Sodium Level: 137 Potassium Level: 4.9 BUN: 24 H Creatinine Lvl (s): 1.48 H Assessment/Plan 1. Weakness 2. Groin abscess 3. CKD stage 3 due to type 2 diabetes mellitus 4. Atrial flutter Weakness- Patient was just discharged from [facility] last week. He thought he could take care of himself but neither he nor his son manage caring for himself. [facility] but recognizes that he can't live at home. Therapy recommending SNF. Patient realizes neither he nor his son can adequately care for him at home. He is unwilling to make a decision. He states that his son will not help him complete a Medicaid application as this will cause him to lose accessto his home. His son has always lived in the patient's home. Patient has been accepted by [facility] and pre-CERT has been started. Groin Abscess- Doxycycline 100mg BID x 7 days, Keflex 500mg QID x 7 days. No leukocytosis or fevers. CKD Stage 3- Near Baseline. Creatinine At baseline. May be secondary to bactrim. This was discontinued. Atrial Flutter-Continue eliquis. Rate controlled. Chronic wounds-lateral aspect of right lower extremity wound and left lateral heel wound. Patient was referred to the wound clinic. Type 2 diabetes mellitus- Glucose goal 180 or less and avoid hypoglycemia. Corrective sliding scaleinsulin. ADA diet. DVT prophylaxis: Eliquis Code Status: Full code Plan of care discussed with patient. All questions answered. Patient verbalizes understanding is agreeable to plan of care. This dictation was performed using voice recognition software and may include grammatical and/or spelling errors. Anticipated Date of Discharge Patient is medically optimized for discharge. Awaiting insurance pre-CERT Time Spent 40 minutes Digitally Signed by MIRELA OLIVO on 04/07/2024 02:57 PM [facility]09-27-2024 Pastoral care Progress note Pastoral Care Note Entered On: 04/07/2024 9:25 EDT Performed On: 04/07/2024 9:22 EDT by Edward Manzo Pastoral [facility] Type of Pastoral Visit : Initial visit Spiritual Care Visit Initiated by : Consult/Referral Spiritual Care Reason for Visit : General Pastoral Care Referral From : Patient Spiritual Assessment : Faithful, Positive Image of God, Good [employer] Support Spiritual Care Emotional Assessment : Sad, Pessimistic, Emotional Exhaustion Spiritual Care Intervention : Compassion/Empathy, Supportive presence, Prayer with Patient/Family Spiritual Plan of Care : Follow-Up Visit Pastoral Care Comments : patient has been seen before in previous admissions; pt is starting to eatbreakfast; pt does not look up and states that I am not feeling good; offer of support but pt is quiet; offer to return later or say a prayer and pt says say a prayer; Pastoral Care Visit Length : 10 minute(s) Edward Manzo - 04/07/2024 9:22 EDT Digitally Signed by Edward Manzo on 04/07/2024 09:22 AM [facility]09-27-2024 Note. MICRO - Microbiology PROCEDURE: Urine Culture [O1 *1] SOURCE: Urine BODY SITE: COLLECTED DATE/TIME: 04/04/2024 23:14 EDT RECEIVED DATE/TIME: 04/05/2024 15:23 EDT START DATE/TIME: 04/05/2024 15:23 EDT FREE TEXT SOURCE: FINAL REPORTS Final Report [] Verified Date/Time/Personnel: 04/07/2024 07:41 EDT >100,000 cfu/ml Multiple bacterial morphotypes present. Probable Contamination. Suggest recollection if clinically indicated. PRELIMINARY REPORTS Preliminary Report [] Verified Date/Time/Personnel: 04/06/2024 10:42 EDT Culture results pending. Order Comments O1: Urine Culture Added by Discern Performing Locations *1: This test was performed at: [facility], [address] [place] [address], [id number] , [facility]09-26-2024 Note Date of Service 04/06/2024 Chief Complaint Presents via EMS with c/o generalized weakness. was seen in ED 2 days ago and dx with UTI. went to wound care appt yesterday for BLE wounds and has felt weak since. History of Present Illness 68-year-old male with past medical history significant for atrial flutter, HFpEF, CKD Stage 3, PAWEL,DVT, BPH, AV replacement, type 2 diabetes mellitus, morbid obesity Patient was in the emergency department on 04/04/2024 with a 1 day history of abdominal pain. He wasjust [facility] from SN[facility] on [facility]24. He thought he would be able to care for himself at home but he was struggling with this. He has a chronic indwelling Martines catheter. He had a CT of the abdomen pelvis at that time that showed gaseous distention of the sigmoid colon with decompressed upstream and downstream segments. No twisting of the mesentery at the time of exam. Martines catheter balloon wasinflated within the prostatic urethra. Martines catheter was repositioned. Patient once noted to have a left inguinal abscess. I&D was done. Patient was given Rocephin for cellulitis and bacteriuria. He was discharged with Keflex and Bactrim. Patient return to the emergency department on 04/06/2024via EMS due to weakness and inability to care for himself at home. In the emergency department he was afebrile, bradycardic, normotensive with adequate oxygenation on room air. No leukocytosis. Urinalysis positive for nitrates and 2+ bacteria. Loaded WBCs. Specific gravity greater than 1.030. Creatinine 1.48 with a GFR 47. 2 days ago it was 1.33 and 53 respectively. X-ray chest showed low lung volumes and hypoventilatory changes. Patient was given 500 mL liter normal saline bolus and subsequently admitted. On exam today, pt denies any fever or chills. No headache or dizziness. Denies chest pain, palpitations. No cough, dyspnea, sputum production. Denies N/V/D/C. No melena/hematochezia. No new paresthesias. Review of Systems See HPI for specific ROS. All other systems reviewed and negative. Physical Exam Vitals and Measurements T: 36.4 C (Oral) TMIN: 36.4 C (Oral) TMAX: 36.7 C (Oral) HR: 55 (Monitored) RR: 14 BP: 138/73 SpO2:94% HT: 188 cm WT: 131.9 kg BMI: 37.32 Weight Dosing Weight: 131.9 kg (04/06/24) Dosing Weight: 131.9 kg (04/06/24) GEN: Appears chronically ill EYES: No conjunctival erythema, drainage. EOMI EARS: Hearing grossly intact. NOSE: No nasal discharge. THROAT: Oral cavity and pharynx pink and moist. CHEST: Normal S1 and S2. Rhythm is regular. Clear to auscultation, without rales, rhonchi, wheezing. ABD: Positive bowel sounds x 4 quads. Soft,obese, nondistended, nontender. EXT: No significant deformity or joint abnormality. No edema. Peripheral pulses intact. NEURO: Sensation grossly intact SKIN: Left groin abscess with packing. Wound RLE and Left lateral heel. PSYCH: The mental examination revealed the patient was alert and oriented x 4 Lab Results 04/06 09:59 WBC: 5.6 Hgb: 12.4 L Hct: 38.6 L Platelet: 183 Neutrophil %: 75.1 H Glucose Level: 108 Sodium Level: 137 Potassium Level: 4.9 BUN: 24 H Creatinine Lvl (s): 1.48 H Imaging Results and Diagnostics XR Chest 1 View Result Date: April 06, 2024 Verified By: CLINICAL STATEMENT: IMPRESSION: Low lung volumes and hypoventilatory changes. Stable median sternotomywires. Stable prominent cardiomediastinal silhouette. Central pulmonaryvascular congestion with peribronchial cuffingsuggesting edema. Mildprominence of the interstitium. No focal consolidations. Asymmetricelevation the right hemidiaphragm. Costophrenic angles are sharp. Nopneumothorax. Left apical pleural thickening/nodularity. Multifocal mildosseous degenerative change. Short interval follow-up to resolution. Assessment/Plan 1. Weakness 2. Groin abscess 3. CKD stage 3 due to type 2 diabetes mellitus 4. Atrial flutter Weakness- Consult PT and OT. Patient was just discharged from [facility] last week. He thought he could take care of himself but neither he nor his son manage caring for himself. Patient does notwant to to live an an ECF but recognizes that he can't live at home. Groin Abscess- Doxycycline 100mg BID x 7 days, Keflex 500mg QID x 7 days. No leukocytosis or fevers. CKD Stage 3- Near Baseline. Creatinine slightly elevated above baseline. May be secondary to bactrim. This will be stopped. Atrial Flutter-Continue eliquis. Rate controlled. Chronic wounds-lateral aspect of right lower extremity wound and left lateral heel wound. Patient was referred to the wound clinic. Type 2 diabetes mellitus- Glucose goal 180 or less and avoid hypoglycemia. Corrective sliding scaleinsulin. ADA diet. DVT prophylaxis: Eliquis Code Status: Full code Plan of care discussed with patient. All questions answered. Patient verbalizes understanding is agreeable to plan of care. This dictation was performed using voice recognition software and may include grammatical and/or spelling errors. Problem List/Past Medical History Ongoing (HFpEF) heart failure with preserved ejection fraction Acute embolism and thrombosis of deep vein of left distal leg Aftercare following surgery Anticoagulated AORTIC VALVE DISEASE Apnea, sleep Atrial flutter CKD (chronic kidney disease) CKD stage 3 due to type 2 diabetes mellitus 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 2 diabetes mellitus Diabetes mellitus type 2 Enlarged prostate Heart failure Heart murmur Heart valve disorder High blood pressure Incarcerated femoral hernia Inclusion cyst Intraventricular conduction delay Iron deficiency anemia Left breast abscess Lower extremity edema Need for vaccination Normocytic anemia Obesity PAWEL on CPAP Recurrent right inguinal hernia Renal mass. Left, 6.6-cm, LP, posterior. *MMP-morbid obesity, CKD, DM, HTN, CHF, DVT/PE. *BT-Coumadin, ASA. Right hip pain S/P AVR (aortic valve replacement) SOB (shortness of breath) Type 2 diabetes mellitus Historical Bowel infarction H/O deep venous thrombosis Procedure/Surgical History Continuous wave ultrasonic Doppler: 12/14/23 Cardioversion: 2022 Echocardiogram Repair of inguinal hernia Bladder IVC - Insertion of inferior vena caval filter IVC - Removal of inferior vena caval filter Colectomy Aortic valve Medications Home Medications (35) Active acetaminophen 500 mg oral tablet 1,000 mg = 2 tab(s), PRN, Oral, TID albuterol 2.5 mg/3 mL (0.083%) inhalation solution 2.5 mg = 3 mL, PRN, Inhalation, q2h amLODIPine 5 mg oral tablet 5 mg = 1 tab(s), Oral, qDay aspirin 81 mg oral tablet, chewable 81 mg = 1 tab(s), Chewed, qDay atorvastatin 20 mg oral tablet 20 mg = 1 tab(s), Oral, qDay Bactrim DS 800 mg-160 mg oral tablet 1 tab(s), Oral, BID bumetanide 1 mg oral tablet 1 mg = 1 tab(s), Oral, BID Calmoseptine 0.44%-20.6% topical ointment 1 priscilla, PRN, Topical, TID cephalexin 500 mg oral capsule 500 mg = 1 cap(s), Oral, QID docusate sodium 100 mg oral tablet 100 mg = 1 tab(s), PRN, Oral, BID Eliquis 5 mg oral tablet 5 mg = 1 tab(s), Oral, BID ET Mix 1 priscilla, Topical, TID fluticasone-salmeterol 250 mcg-50 mcg inhalation powder 1 puff(s), Inhalation, BID FreeStyle Anai 2 Agate See Instructions FreeStyle Agate 14 day sensor See Instructions gabapentin 300 mg oral capsule 300 mg = 1 cap(s), Oral, TID IRON (ferrous sulfate 325 mg) 65 mg oral tablet 325 mg = 1 tab(s), Oral, BID Jardiance 10 mg oral tablet 10 mg = 1 tab(s), Oral, qAM lactulose 10 g/15 mL oral syrup 20 gram(s) = 30 mL, PRN, Oral, qDay Lantus 100 units/mL10 ml vial solution 25 unit(s), Subcutaneous (INT), qDay melatonin 3 mg oral tablet 3 mg = 1 tab(s), PRN, Oral, qHS melatonin 5 mg oral tablet 5 mg = 1 tab(s), PRN, Oral, qHS menthol-zinc oxide 0.44%-20.6% topical ointment 1 application, Topical, TID MiraLax oral powder for reconstitution 17 gram(s), PRN, Oral, BID Mounjaro 5 mg/0.5 mL subcutaneous solution Thaxton 325- 5 mg oral tablet 1 tab(s), PRN, Oral, q6h nystatin 100,000 units/g topical powder 1 priscilla, Topical, TID oxyCODONE 5 mg oral tablet ( IMMEDIATE release ) 10 mg = 2 tab(s), PRN, Oral, q6h Potassium Chloride (Eqv-K-Tab) 20 mEq oral tablet, extended release 20 mEq = 1 tab(s), Oral, BID Potassium Chloride (Eqv-K-Tab) 20 mEq oral tablet, extended release 20 mEq = 1 tab(s), Oral, BID Senna Plus 50 mg-8.6 mg oral tablet 2 tab(s), Oral, qHS tamsulosin 0.4 mg oral capsule 0.8 mg = 2 cap(s), Oral, qDay traZODone 50 mg oral tablet 50 mg = 1 tab(s), Oral, qHS Vitamin C 250 mg oral tablet 250 mg = 1 tab(s), Oral, qDay Zoloft 50 mg oral tablet 50 mg = 1 tab(s), Oral, qDay Allergies Nuprin Unknown misc non-codified allergy unknown Social History Smoking Status - 11/02/2017 Former smoker Alcohol - Denies Alcohol Use, 11/02/2017 Use: Past., 10/13/2023 Home/Environment Living situation: Home/Independent. Domestic Concerns: None. 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 Current HomeTreatments Oxygen therapy, CPAP. Professional Skilled Services or Special Community Resources None., 10/13/2023 Nutrition/Health Type of diet: Diabetic, Just started seeing nutrionist at [facility], doesn't eat much fruits or veggies. Drinks milk.. Caffeine intake amount: Very rare pop. Appetite Good. Eating Difficulties None., 04/05/2024 Substance Abuse - Denies Substance Abuse, 11/02/2017 Use: Never., 10/13/2023 Tobacco Nicotine Use: Former smoker, quit more than 30 days ago. Type: Cigarettes. Number of years: 30. Stopped at age: 45 Years., 10/26/2023 Family History Bladder cancer: Negative: Mother, Father and Sister. Cancer: Brother. Diabetes mellitus: Mother. Prostate cancer: Negative: Mother, Father and Brother. Renal cancer: Brother.Negative: Mother, Father and Sister. Sleep apnea: Sister. Health Status Family Member(s) Immunizations pneumococcal 13-valent conjugate vaccine: 0.5 unknown unit (06/16/17) pneumococcal 23-valent vaccine(Pneumovax: 0.5 unknown unit (06/13/18) pneumococcal 23-valent vaccine(Pneumovax: 0 unknown unit (07/14/16) pneumococcal 23-valent vaccine(Pneumovax: 0 unknown unit (07/10/16) pneumococcal 23-valent vaccine(Pneumovax: 0 unknown unit (05/08/99) SARS-CoV-2 (COVID-19) mRNA-1273 vaccine: 50 mcg (03/05/22) SARS-CoV-2 (COVID-19) mRNA-1273 vaccine: 50 mcg (06/23/21) SARS-CoV-2 mRNA (tozinameran) vaccine: 0.5 unknown unit (10/26/20) SARS-CoV-2 mRNA (tozinameran) vaccine: 0.5 unknown unit (10/05/20) tetanus/diphth/pertuss (Tdap) adult/adol: 0.5 mL (01/04/23) zoster vaccine live: 1 unknown unit (06/16/17) Code Status Code Status - Ordered -- 04/06/24 11:16:00 EDT, Full Code, Constant Order Digitally Signed by MIRELA OLIVO on 04/06/2024 05:35 PM [place] [id number] Evaluation + Plan noteExtracted from: Title:History and Physical Author:MIRELA OLIVO Date:04/06/24 1. Weakness 2. Groin abscess 3. CKD stage 3 due to type 2 diabetes mellitus 4. Atrial flutter Weakness- Consult PT and OT. Patient was just discharged from [facility] last week. He thought he could take care of himself but neither he nor his son manage caring for himself. Patient does not want to to live an an F but recognizes that he can't live at home. Groin Abscess- Doxycycline 100mg BID x 7 days, Keflex 500mg QID x 7 days. No leukocytosis or fevers. CKD Stage 3- Near Baseline. Creatinine slightly elevated above baseline. May be secondary to bactrim. This will be stopped. Atrial Flutter-Continue eliquis. Rate controlled. Chronic wounds-lateral aspect of right lower extremity wound and left lateral heel wound. Patient was referred to the wound clinic. Type 2 diabetes mellitus- Glucose goal 180 or less and avoid hypoglycemia. Corrective sliding scale insulin. ADA diet. DVT prophylaxis: Eliquis Code Status: Full code Plan of care discussed with patient. All questions answered. Patient verbalizes understanding is agreeable to plan of care. This dictation was performed using voice recognition software and may include grammatical and/or spelling errors. Future Appointments Appointment Date:04/13/2024 11:00:00 AM Scheduled Provider:KELLIE BENITES Location:[facility] Appointment Type:PC OV Appointment Date:06/14/2024 09:30:00 AM Scheduled Provider:GAVINO AG Location:[facility] Appointment Type:CV OV Future Scheduled Tests Laboratory* Basic Metabolic Panel 01/11/24 * Urinalysis w/ C&S if Indicated 04/04/24 * Albumin/Creatinine Ratio, Random Urine 06/11/23 * N-Terminal proBNP 01/11/24 [facility] 09-[facility]24 Note ORIGINAL EXAMINATION: ONE XRAY VIEW OF THE CHEST 04/06/2024 10:24 am COMPARISON: 01/21/2024 HISTORY: ORDERING SYSTEM PROVIDED HISTORY: Reason for Exam: weakness IMPRESSION: Low lung volumes and hypoventilatory changes. Stable median sternotomy wires. Stable prominent cardiomediastinal silhouette. Central pulmonary vascular congestion with peribronchial cuffing suggesting edema. Mild prominence of the interstitium. No focal consolidations. Asymmetric elevation the right hemidiaphragm. Costophrenic angles are sharp. No pneumothorax. Left apical pleural thickening/nodularity. Multifocal mild osseous degenerative change. Short interval follow-up to resolution. Interpreted by: Mackenzie Cuenca Preliminary Report By: Mackenzie Cuenca Electronically signed By Mackenzie Cuenca Dictated Date: 04/06/2024 10:34:49 AM Prelim Date: 04/06/2024 10:36:49 AM Sign Date: 04/06/2024 10:36:49 AM Ordering Provider: [facility]25[facility]24 Hospital Discharge instructions Patient Education 04/05/2024 00:38:00 Martines Catheter, Care Martines Catheter Care A Martines catheter is a rubber tube that is placed through the urethra (opening where urine comes out) and into the bladder. This helps drain urine from the bladder. There is a small balloon on the endof the tube that is inflated after insertion. This keeps the catheter from sliding out of the bladder. A Martines catheter is used to treat urinary retention (unable to pass urine). It is also used when there is incontinence (loss of bladder control). Home care Finish taking any prescribed antibiotic even if you are feeling better before then. It is important to keep bacteria from getting into the collection bag. Do not disconnect the catheter from the collection bag. Use a leg band to secure the drainage tube, so it does not pull on the catheter. Drain the collection bag when it becomes full using the drain spout at the bottom of the bag. Do not try to pull or remove your catheter. This will injure your urethra. It must be removed by your healthcare provider or nurse. Follow-up care Follow up with your healthcare provider as advised for repeat urine testing and catheter removal orreplacement. When to seek medical advice Call your healthcare provider right away if any of these occur: Fever of 100.4 F (38 C) or higher, or as directed by your healthcare provider Bladder pain or fullness Abdominal swelling, nausea or vomiting, or back pain Blood or urine leakage around the catheter Bloody urine coming from the catheter (if a new symptom) Catheter falls out Catheter stops draining for 6 hours Weakness, dizziness, or fainting [id number] [employer]. [address] [place] [address]. All rights reserved. This information is not intended as a substitute for professional medical care. Always follow yourhealthcare professional's instructions. 04/05/2024 00:37:50 Abscess, Incision And Drainage Abscess (Incision & Drainage) An abscess is sometimes called a boil. It happens when bacteria get trapped under the skin and start to grow. Pus forms inside the abscess as the body responds to the bacteria. An abscess can happen with an insect bite, ingrown hair, blocked oil gland, pimple, cyst, or puncture wound. Your healthcare provider has drained the pus from your abscess. If the abscess pocket was large, your healthcare provider may have put in gauze packing. Your provider will need to remove it on your next visit. He or she may also replace it at that time. You may not need antibiotics to treat a simple abscess, unless the infection is spreading into the skin around the wound (cellulitis). The wound will take about 1 to 2 weeks to heal, depending on the size of the abscess. Healthy tissue will grow from the bottom and sides of the opening until it seals over. Home care These tips can help your wound heal: The wound may drain for the first 2 days. Cover the wound with a clean dry dressing. Change the dressing if it becomes soaked with blood or pus. If a gauze packing was placed inside the abscess pocket, you may be told to remove it yourself. Youmay do this in the shower. Once the packing is removed, you should wash the area in the shower, or clean the area as directed by your provider. Continue to do this until the skin opening has closed. Make sure you wash your hands after changing the packing or cleaning the wound. If you were prescribed antibiotics, take them as directed until they are all gone. You may use acetaminophen or ibuprofen to control pain, unless another pain medicine was prescribed. If you have liver disease or ever had a stomach ulcer, talk with your doctor before using these medicines. Follow-up care Follow up with your healthcare provider, or as advised. If a gauze packing was put in your wound, it should be removed in 1 to 2 days. Check your wound every day for any signs that the infection is getting worse. The signs are listed below. When to seek medical advice Call your healthcare provider right away if any of these occur: Increasing redness or swelling Red streaks in the skin leading away from the wound Increasing local pain or swelling Continued pus draining from the wound 2 days after treatment Fever of 100.4 F (38 C) or higher, or as directed by your healthcare provider Boil returns when you are at home [phone] [employer]. [address] [place] [address]. All rights reserved. This information is not intended as a substitute for professional medical care. Always follow yourhealthcare professional's instructions. Follow Up Care 04/04/2024 21:11:33 With:KELLIE BENITES Address: [address] [place] [phone] When:2-4 days [facility] 09-25-2024 Note Discharge Instructions Thank you for allowing [facility] to assist you with your healthcare needs. The following is importantdischarge information regarding your hospital visit. Diagnosis from Today's Visit Abdominal pain What to Do Next Instructions from Your Care Team No qualifying data available. Post Acute Orders No qualifying data available. You Need to Schedule the Following Appointments Follow Up with KELLIE BENITES When:Within 2-4 days Where:0 [place], [place] [id number]- [phone] Allergies Nuprin Unknown misc non-codified allergy unknown Medications Please ask your primary doctor or pharmacist before taking any other medication not listed, including over the counter drugs, herbal medications, vitamins and or supplements as they may interact withur home medications. What How Much When Why Instructions Last Dose New acetaminophen-hydrocodone (Thaxton 325- 5 mg oral tablet) 1 tab(s) by mouth Every 6 hours as needed for as needed for pain Abdominal pain Duration: 3 Days Printed Prescription New cephalexin (cephalexin 500 mg oral capsule) 1 cap by mouth Four (4) times a day Duration: 10 Days Printed Prescription New ondansetron (ondansetron 4 mg oral tablet, disintegrating) 1 tab(s) by mouth Every 6 hours as needed for Nausea/Vomiting Duration: 4 Days Printed Prescription New sulfamethoxazole-trimethoprim (Bactrim DS 800 mg-160 mg oral tablet) 1 tab(s) by mouth Two (2) times a day Duration: 10 Days Printed Prescription Unchanged acetaminophen-oxyCODONE (acetaminophen-oxyCODONE 325 mg-5 mg oral tablet) 1 tab(s) by mouth Every 6 hours as needed for for pain Unchanged albuterol Unchanged amLODIPine (amLODIPine 5 mg oral tablet) 1 tab(s) by mouth Once a day Unchanged apixaban (Eliquis 5 mg oral tablet) Unchanged ascorbic acid (Vitamin C 500 mg oral tablet) 1 tab(s) by mouth Once a day Unchanged aspirin (aspirin 81 mg oral tablet, chewable) 1 tab(s) Chewed Once a day Duration: 30 Days Unchanged atorvastatin (atorvastatin 20 mg oral tablet) 1 tab(s) by mouth Once a day Diabetes mellitus type 2 Duration: 90 Days Unchanged budesonide-formoterol (budesonide-formoterol 160 mcg-4.5 mcg/ inh Inhaler) 2 puff(s) by inhalation Every day Duration: 90 Days Unchanged bumetanide (bumetanide 1 mg oral tablet) 1 tab(s) by mouth Two (2) times a day Unchanged collagenase topical (Santyl 250 units/ g topical ointment) 1 application Topical Once a day Unchanged empagliflozin (Jardiance 10 mg oral tablet) 1 tab(s) by mouth Once a day (in the morning) Unchanged ferrous sulfate (IRON (ferrous sulfate 325 mg) 65 mg oral tablet) 1 tab(s) by mouth Once a day Take with food. Unchanged gabapentin (gabapentin 300 mg oral capsule) 1 cap by mouth Three (3) times a day Unchanged insulin glargine (Lantus 100 units/ mL10 ml vial solution) 75 unit(s) Subcutaneous (INT) Once a day Unchanged insulin lispro (HumaLOG) (HumaLOG 100 units/ mL subcutaneous solution) Give 0-5 units/dose Subcutaneous Three (3) times a day before meals Unchanged melatonin (melatonin 3 mg oral tablet) 1 tab(s) by mouth Daily at bedtime as needed for Sleep Unchanged nystatin topical (nystatin 100,000 units/ g topical powder) 1 application Topical Two (2) times a day Unchanged polyethylene glycol 3350 (MiraLax oral powder for reconstitution) by mouth Two (2) times a day Unchanged potassium chloride (Potassium Chloride (Eqv-K-Tab) 20 mEq oral tablet, extended release) 1 tab(s) by mouth Two (2) times a day Take with food. Unchanged tamsulosin (tamsulosin 0.4 mg oral capsule) 1 cap by mouth Once a day Unchanged tirzepatide (Mounjaro 5 mg/ 0.5 mL subcutaneous solution) Unchanged traZODone (traZODone 50 mg oral tablet) 1 tab(s) by mouth Daily at bedtime Please take this list to your next doctor s visit. Bring all medications you take, including over the counter medications, herbals and other supplements with you to your doctor s visit. Patients and families are reminded to discard old lists and to update any records with all medication providers or retail pharmacies. Education Materials Martines Catheter Care A Martines catheter is a rubber tube that is placed through the urethra (opening where urine comes out) and into the bladder. This helps drain urine from the bladder. There is a small balloon on the endof the tube that is inflated after insertion. This keeps the catheter from sliding out of the bladder. A Martines catheter is used to treat urinary retention (unable to pass urine). It is also used when there is incontinence (loss of bladder control). Home care Finish taking any prescribed antibiotic even if you are feeling better before then. It is important to keep bacteria from getting into the collection bag. Do not disconnect the catheter from the collection bag. Use a leg band to secure the drainage tube, so it does not pull on the catheter. Drain the collection bag when it becomes full using the drain spout at the bottom of the bag. Do not try to pull or remove your catheter. This will injure your urethra. It must be removed by your healthcare provider or nurse. Follow-up care Follow up with your healthcare provider as advised for repeat urine testing and catheter removal orreplacement. When to seek medical advice Call your healthcare provider right away if any of these occur: Fever of 100.4 F (38 C) or higher, or as directed by your healthcare provider Bladder pain or fullness Abdominal swelling, nausea or vomiting, or back pain Blood or urine leakage around the catheter Bloody urine coming from the catheter (if a new symptom) Catheter falls out Catheter stops draining for 6 hours Weakness, dizziness, or fainting [id number] [employer]. [address] [place] [address]. All rights reserved. This information is not intended as a substitute for professional medical care. Always follow yourhealthcare professional's instructions. Abscess (Incision & Drainage) An abscess is sometimes called a boil. It happens when bacteria get trapped under the skin and start to grow. Pus forms inside the abscess as the body responds to the bacteria. An abscess can happen with an insect bite, ingrown hair, blocked oil gland, pimple, cyst, or puncture wound. Your healthcare provider has drained the pus from your abscess. If the abscess pocket was large, your healthcare provider may have put in gauze packing. Your provider will need to remove it on your next visit. He or she may also replace it at that time. You may not need antibiotics to treat a simple abscess, unless the infection is spreading into the skin around the wound (cellulitis). The wound will take about 1 to 2 weeks to heal, depending on the size of the abscess. Healthy tissue will grow from the bottom and sides of the opening until it seals over. Home care These tips can help your wound heal: The wound may drain for the first 2 days. Cover the wound with a clean dry dressing. Change the dressing if it becomes soaked with blood or pus. If a gauze packing was placed inside the abscess pocket, you may be told to remove it yourself. Youmay do this in the shower. Once the packing is removed, you should wash the area in the shower, or clean the area as directed by your provider. Continue to do this until the skin opening has closed. Make sure you wash your hands after changing the packing or cleaning the wound. If you were prescribed antibiotics, take them as directed until they are all gone. You may use acetaminophen or ibuprofen to control pain, unless another pain medicine was prescribed. If you have liver disease or ever had a stomach ulcer, talk with your doctor before using these medicines. Follow-up care Follow up with your healthcare provider, or as advised. If a gauze packing was put in your wound, it should be removed in 1 to 2 days. Check your wound every day for any signs that the infection is getting worse. The signs are listed below. When to seek medical advice Call your healthcare provider right away if any of these occur: Increasing redness or swelling Red streaks in the skin leading away from the wound Increasing local pain or swelling Continued pus draining from the wound 2 days after treatment Fever of 100.4 F (38 C) or higher, or as directed by your healthcare provider Boil returns when you are at home [id number] [employer]. [address] [place] [address], [place] [address]. All rights reserved. This information is not intended as a substitute for professional medical care. Always follow yourhealthcare professional's instructions. Additional Information VACCINATE! IT SAVES LIVES! Members of the community who have not yet received the COVID-19 vaccine and would like to receive it can visit one of [facility] vaccine clinics. There are many vaccine clinic locations within the [facility]. For locations and available times, please visit www.[email or web address].[place].gov/. It is important to note that some COVID mobile vaccine clinics are held outdoors and may be canceled in rainy or stormy conditions. To learn more about pediatric vaccinations (ages 5-11), we invite you to visit the [facility] webpage. [email or web address]/[email or web address] [email or web address] learn more about the COVID-19 vaccine, we invite you to visit the CDC website for a list of frequently asked questions. https://www.cdc.gov/coronavirus/2019-ncov/vaccines/faq.html [email or web address] Patient Portal Access Instructions: Stay connected with your healthcare team and access your personal medical information anytime with the [email or web address] Patient Portal. If you would like a full copy of your medical records please contact the [facility] Medical Records Department Wednesday through Wednesday between 8a.m. and 4:30p.m. Please follow the directions below to access the portal: 1.Access the email account you provided upon registration to the hospital.2.Look for an invitation email from [facility].3.Open the email and access the invitation link: Accept Invitation to [email or web address].Fill in the required breen to create your account. Sign into [email or web address] with your username and password that you created in the above steps to stay up to date. You can then view a summary of results, a summary of your visits, and the ability to download your summaries to your computer or send the information securely to a physician. Remember that your healthcare information is confidential, so carefully consider who you will allow to register on the [email or web address] Patient Portal for access to your information. You can also access the [email or web address] Patient Portal on the [email or web address] priscilla. Simply click on Health Records under [employer] and then click on the [place] logo. HOW TO SAFELY DISPOSE OF PRESCRIPTION MEDICATIONS Please use one of the following methods to safely dispose of your unused medications. 1.Use a drug disposal kit: the drug disposal pouch allows you to safely discard your old and unuseddrugs. Ask your nurse to give you one when you are discharged.2.Visit a local take-back location: Many local pharmacies and police departments have programs that collect old and unwanted prescriptiondrugs. Call your local pharmacy or go to http://Wikidot.Rebit/5G3Si6a to find one close to you.3.Make use of household items: Use cat litter or old coffee grounds to dispose medications if other options arenot available. Mix your drugs with these household products, seal them in an airtight container andthrow it into the garbage. Call [facility]: [phone] to be sure your drugs can be disposed of in this way. Some medicines may require a different approach.4.Never flush your medications down the toilet. IF YOU HAVE BEEN PRESCRIBED AN OPIOIDS FOR PAIN If you have been prescribed an opioid (such as hydrocodone, oxycodone or morphine), it is critical to understand the possible side effects and risks of opioid pain medications. Even when taken as directed, opioids can have several side effects including: Tolerance, meaning you might need to take more of a medication for the same pain relief. Nausea, vomiting and/or constipation. Sleepiness, dizziness, dry mouth, confusion, depression or itching. Physical dependence, meaning you have withdrawal symptoms when a medication is stopped ? this can develop within a few days. KNOW YOUR RESPONSIBILITIES It is important to know exactly how much and how often to take the opioid pain medications you are prescribed. Never take opioids in higher amounts or more often than prescribed. Do not combine opioids with alcohol or other drugs that cause drowsiness, such as benzodiazepines, also known as benzos,including diazepam and alprazolam, muscle relaxants or sleep aids. Never sell or share prescriptionopioids. This is illegal. Store opioids in a secure place and out of reach of others (including children, family, friends and visitors). The last page(s) of this document has been signed and retained as a CHART COPY Signatures Patient Education Materials Martines Catheter, Care Abscess, Incision And Drainage Medication Leaflets My discharge plan and instructions have been reviewed and explained to me and I,JADON ALVAREZ understand my current condition and have read and understand these discharge instructions. I have received a written copy of the plan/instructions. If I have questions, I am aware that I should contact my doctor. 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 Multiplanar reformatted images are provided for review. Automated exposure control, iterative reconstruction, and/or weight based adjustment of the mA/kV was utilized to reduce the radiation dose to as low as reasonably achievable. COMPARISON: CT July 02, 2021. HISTORY: ORDERING SYSTEM PROVIDED HISTORY: Reason for Exam: abdominal pain FINDINGS: Lower Chest: No focal consolidation. Organs: Gallstones within a nondistended gallbladder. Bilateral renal cysts, some of which are too small to characterize. 0.6 cm nonobstructing nephrolithiasis in the left kidney. Unchanged size and appearance to left inferior pole renal mass; correlate with prior biopsy results. Left adrenal gland unchanged. GI/Bowel: Right lower quadrant bowel postsurgical changes. Gaseous distension of the sigmoid colon. Mild to moderate amount of stool and gas in the upstream colon. Nearly decompressed distal sigmoid colon and rectum. Pelvis: Small amount of air within the urinary bladder. Martines catheter balloon is inflated within the prostatic urethra inferiorly; suggest repositioning. Enlarged prostate. Peritoneum/Retroperitoneum: Nonaneurysmal abdominal aorta with atherosclerotic plaque. Nonspecific mildly prominent inguinal lymph nodes. Bones/Soft Tissues: Right inguinal postsurgical change. Degenerative change of the spine. IMPRESSION: Gaseous distension of the sigmoid colon with decompressed upstream and downstream segments. No twisting of the mesentery at the time of this exam to suggest volvulus. Martines catheter balloon is inflated within the prostatic urethra inferiorly; suggest repositioning. Interpreted by: Luis Jeffries Preliminary Report By: Luis Jeffries Electronically signed By Luis Jeffries Dictated Date: 04/04/2024 11:17:01 PM Prelim Date: 04/04/2024 11:30:06 PM Sign Date: 04/04/2024 11:30:06 PM Ordering Provider: [facility]09-24-2024 Evaluation + Plan note Future Scheduled Tests Laboratory* Urinalysis w/ C&S if Indicated 04/04/24 [facility] 09-04-2024 Note ORIGINAL EXAMINATION: LIMITED RETROPERITONEAL ULTRASOUND03/15/2024 9:04 am TECHNIQUE: Multiple real time sonographic images of the urinary system were obtained assessing humphrey-scale appearance and color Doppler. All images are recorded and archived. COMPARISON: Renal ultrasound 08/19/2021, CT abdomen pelvis 07/02/2021 HISTORY: ORDERING SYSTEM PROVIDED HISTORY: Reason for Exam: HX Kidney cancerpatient has a Martines catheter in place FINDINGS: RIGHT KIDNEY: The right kidney measures approximately 11.0 cm in length. Normal echogenicity and no evidence for pelvicaliectasis, sonographically detectable cortical mass, obvious nephrolithiasis, or abnormal perinephric fluid collection. Normal cortical thickness. Multiple simple appearing right renal cyst measuring up to 2.9 cm at the right upper pole and 2.3 cm at the right midpole. LEFT KIDNEY: The left kidney measures approximate 11.5 cm in length. Normal echogenicity and no evidence for pelvicaliectasis, obvious nephrolithiasis, or abnormal perinephric fluid collection. Normal cortical thickness. 7.4 x 7.1 x 6.0 cm ill-defined, heterogeneous, predominantly hyperechoic left lower pole renal mass with posterior acoustic shadowing is present. No internal vascularity of this mass is noted doppler images. This mass is not significantly changed in size from prior renal ultrasound (previously 7.2 x 6.8 x 7.7 cm). Large simple appearing left renal cysts are present measuring 5.7 x 5.7 x 6.5 cm at the left upper pole and 6.3 x 6.0 x 5.9 cm at the left lower pole. BLADDER: The bladder is completely collapsed limiting its evaluation. IMPRESSION: Large solid left lower pole renal mass is stable. This has been biopsied previously.. Multiple bilateral renal cysts measuring up to 2.9 cm on the right and 6.5 cm on the left. I have personally reviewed the images of this examination and agree with the resident's findings and interpretation. Interpreted by: Reginaldo Owen MD Preliminary Report By: Jaquelin Dowling Electronically signed By Reginaldo Owen MD Dictated Date: 03/15/2024 1:53:23 PM Prelim Date: 03/15/2024 4:55:52 PM Sign Date: 03/15/2024 4:55:52 PM Ordering Provider: [place] [address]-08-2024 Note HNO ID: [id number] Author: SHAR DOWNS MD Service: ? Author Type: Physician Type: Procedures Filed: 02/17/2024 09:10 Note Text: [facility] PROCEDURE NOTE PATIENT: Jadon Alvarez (68 year old) DATE OF SERVICE: 02/17/2024 PRE-OPERATIVE DIAGNOSIS: BPH with obstruction, urinary retention, difficult Martines insert POST-OPERATIVE DIAGNOSIS: same PROCEDURE: Cystoscopy, Martines catheter change ANESTHESIA: Local BLOOD LOSS: none SPECIMENS: none COMPLICATIONS: None FINDINGS: Urethra normal. Prostate moderate trilobar enlargement, especially of the lateral lobes that appears completely obstructing. Fossa 5 cm length. Bladder surveyed entirely. No stones. No tumors or lesions. Normal capacity. Moderate bladder trabeculation. Martines changed today (16 Fr Coude) INDICATIONS: Jadon Alvarez is a 68 year old male who presents for cystoscopy. We discussed the planned procedure. Risks, benefits, and alternatives of the procedure were discussed. Patient acknowledges understanding and consents to proceed. PROCEDURE DETAIL: Patient?s identity was confirmed, written informed consent was obtained, and the time out performed before the procedure was initiated. Adjunct Instructor Chemistry offered and present for procedure. Prior Martines removed The patient was placed on the procedure table in the supine position and prepped and draped in the usual sterile fashion. 2% Lidocaine Jelly was placed per urethra as an anesthetic in the standard fashion. Once adequate local anesthesia was achieved, the tip of the flexible cystoscope was carefully placed into the urethra under direct visual guidance. The scope was negotiated through the urethra to the level of the bladder. The bladder was entered and careful nina-endoscopy was carried out. The posterior, superior and lateral gamino and dome of the bladder were all well visualized and the scope was retroflexed upon itself. At the conclusion of the procedure, the flexible cystoscope was removed atraumatically. A new 16 Fr Coude was placed (Coude necessary due to the BPH). The patient tolerated the procedure without complications. DISPOSITION: The patient tolerated the procedure well. Discharge to home. Postoperative care, limitations, and expectations were reviewed with the patient. We discussed concerning signs and symptoms and patient knows to report these immediately. If unable to reach their urologist, patient knows to report to emergency department for evaluation. 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 Patient is not currently a surgical candidate due to his multiple active medical issues. Procedures would carry high risk of complications at this time. Recommend 4 week Martines changes and return in 6 months. If his health improves, could consider a TURP or other BPH procedure. ORDERS TODAY: Orders Placed This Encounter MARTINES-DISCONTINUE CYSTO.PANENDO lidocaine urojet 2 % 11 mL topical gel (GLYDO) UNIVERSAL PROTOCOL / SAFETY CHECKLIST A Moment of CARE was completed. Sign In: History and Physical on chart: Completed Allergies and Medications Review: Completed Informed Consent: Completed. Sign in Communication: Completed Time Out: Team Confirms the Correct Patient, Correct Procedure, Correct Site and Site Marking (if applicable), Correct Position, Sterility, Fire Risk, Medications to be given: Affirmation of Time Out: Yes Sign Out: All specimen containers correctly labeled when applicable. Sign Out Discussion: Completed Patient instructions: Completed Shar Downs MD 02/17/2024[facility]08-08-2024 Procedure note* Shar Downs MD - 02/17/2024 9:05 AM EDT Images from the original note were not included. [facility] PROCEDURE NOTE PATIENT: Jadon Alvarez (68 year old) DATE OF SERVICE: 02/17/2024 PRE-OPERATIVE DIAGNOSIS: BPH with obstruction, urinary retention, difficult Martines insert POST-OPERATIVE DIAGNOSIS: same PROCEDURE: Cystoscopy, Martines catheter change ANESTHESIA: Local BLOOD LOSS: none SPECIMENS: none COMPLICATIONS: None FINDINGS: Urethra normal. Prostate moderate trilobar enlargement, especially of the lateral lobes that appears completely obstructing. Fossa 5 cm length. Bladder surveyed entirely. No stones. No tumors or lesions. Normal capacity. Moderate bladder trabeculation. Martines changed today (16 Fr Coude) INDICATIONS: Jadon Alvarez is a 68 year old male who presents for cystoscopy. We discussed the planned procedure. Risks, benefits, and alternatives of the procedure were discussed. Patient acknowledges understanding and consents to proceed. PROCEDURE DETAIL: Patient s identity was confirmed, written informed consent was obtained, and the time out performedbefore the procedure was initiated. Adjunct Instructor Chemistry offered and present for procedure. Prior Martines removed The patient was placed on the procedure table in the supine position and prepped and draped in the usual sterile fashion. 2% Lidocaine Jelly was placed per urethra as an anesthetic in the standard fashion. Once adequate local anesthesia was achieved, the tip of the flexible cystoscope was carefullyplaced into the urethra under direct visual guidance. The scope was negotiated through the urethra to the level of the bladder. The bladder was entered and careful nina- endoscopy was carried out. The posterior, superior and lateral gamino and dome of the bladder were all well visualized and the scopewas retroflexed upon itself. At the conclusion of the procedure, the flexible cystoscope was removed atraumatically. A new 16 FrCoude was placed (Coude necessary due to the BPH). The patient tolerated the procedure without complications. DISPOSITION: The patient tolerated the procedure well. Discharge to home. Postoperative care, limitations, and expectations were reviewed with the patient. We discussed concerning signs and symptoms and patient knows to report these immediately. If unable to reach their urologist, patient knows to report to emergency department for evaluation. 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 Patient is not currently a surgical candidate due to his multiple active medical issues. Procedures would carry high risk of complications at this time. Recommend 4 week Martines changes and return in 6 months. If his health improves, could consider a TURP or other BPH procedure. ORDERS TODAY: Orders Placed This Encounter MARTINES-DISCONTINUE CYSTO.PANENDO lidocaine urojet 2 % 11 mL topical gel (GLYDO) UNIVERSAL PROTOCOL / SAFETY CHECKLIST A Moment of CARE was completed. Sign In: History and Physical on chart: Completed Allergies and Medications Review: Completed Informed Consent: Completed. Sign in Communication: Completed Time Out: Team Confirms the Correct Patient, Correct Procedure, Correct Site and Site Marking (if applicable), Correct Position, Sterility, Fire Risk, Medications to be given: Affirmation of Time Out: Yes Sign Out: All specimen containers correctly labeled when applicable. Sign Out Discussion: CompletedPatient instructions: Completed Shar Downs MD 02/17/2024 [facility]08-08-2024 Instructions* Patient Instructions* Shar Downs MD - 02/17/2024 9:05 AM EDT [facility] POST-CYSTOSCOPY INSTRUCTIONS You have undergone a cystoscopy. Your doctor has visualized your lower urinary tract using a scope. WHAT TO EXPECT: Possible burning during urination and/or blood-tinged urine for up to 72 hours. WHAT TO DO: Resume normal activity aside from no heavy lifting/pushing/pulling (25 lbs) for 24 hours. Continue current medications (unless instructed by physician) If an antibiotic was prescribed, your physician will have instructed you to pick the medication up at your pharmacy. Drink 6-8 glasses of fluid (water is best) each day for 3 days to help flush your urinary system. If a stent was removed, you may have have cramping or spasm in your bladder or kidney for up to 72 hours. You may take OTC acetaminophen or ibuprofen for discomfort. WHEN TO CALL THE DOCTOR: If you have a temperature over 101 degrees Fahrenheit. If you are unable to urinate. If blood clots form in your urine. If your urine becomes very bloody and does not clear with drinking extra fluids. Thank you. documented [facility] Procedure note* Shar Downs MD - 02/17/2024 9:05 AM EDT Images from the original note were not included. [facility] PROCEDURE NOTE PATIENT: Jadon Alvarez (68 year old) DATE OF SERVICE: 02/17/2024 PRE-OPERATIVE DIAGNOSIS: BPH with obstruction, urinary retention, difficult Martines insert POST-OPERATIVE DIAGNOSIS: same PROCEDURE: Cystoscopy, Martines catheter change ANESTHESIA: Local BLOOD LOSS: none SPECIMENS: none COMPLICATIONS: None FINDINGS: Urethra normal. Prostate moderate trilobar enlargement, especially of the lateral lobes that appears completely obstructing. Fossa 5 cm length. Bladder surveyed entirely. No stones. No tumors or lesions. Normal capacity. Moderate bladder trabeculation. Martines changed today (16 Fr Coude) INDICATIONS: Jadon Alvarez is a 68 year old male who presents for cystoscopy. We discussed the planned procedure. Risks, benefits, and alternatives of the procedure were discussed. Patient acknowledges understanding and consents to proceed. PROCEDURE DETAIL: Patient s identity was confirmed, written informed consent was obtained, and the time out performedbefore the procedure was initiated. Adjunct Instructor Chemistry offered and present for procedure. Prior Martines removed The patient was placed on the procedure table in the supine position and prepped and draped in the usual sterile fashion. 2% Lidocaine Jelly was placed per urethra as an anesthetic in the standard fashion. Once adequate local anesthesia was achieved, the tip of the flexible cystoscope was carefullyplaced into the urethra under direct visual guidance. The scope was negotiated through the urethra to the level of the bladder. The bladder was entered and careful nina- endoscopy was carried out. The posterior, superior and lateral gamino and dome of the bladder were all well visualized and the scopewas retroflexed upon itself. At the conclusion of the procedure, the flexible cystoscope was removed atraumatically. A new 16 FrCoude was placed (Coude necessary due to the BPH). The patient tolerated the procedure without complications. DISPOSITION: The patient tolerated the procedure well. Discharge to home. Postoperative care, limitations, and expectations were reviewed with the patient. We discussed concerning signs and symptoms and patient knows to report these immediately. If unable to reach their urologist, patient knows to report to emergency department for evaluation. 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 Patient is not currently a surgical candidate due to his multiple active medical issues. Procedures would carry high risk of complications at this time. Recommend 4 week Martiens changes and return in 6 months. If his health improves, could consider a TURP or other BPH procedure. ORDERS TODAY: Orders Placed This Encounter MARTINES-DISCONTINUE CYSTO.PANENDO lidocaine urojet 2 % 11 mL topical gel (GLYDO) UNIVERSAL PROTOCOL / SAFETY CHECKLIST A Moment of CARE was completed. Sign In: History and Physical on chart: Completed Allergies and Medications Review: Completed Informed Consent: Completed. Sign in Communication: Completed Time Out: Team Confirms the Correct Patient, Correct Procedure, Correct Site and Site Marking (if applicable), Correct Position, Sterility, Fire Risk, Medications to be given: Affirmation of Time Out: Yes Sign Out: All specimen containers correctly labeled when applicable. Sign Out Discussion: CompletedPatient instructions: Completed Shar Downs MD 02/17/2024 [facility] Nurse Note* Eli Bull RN - 02/17/2024 8:46 AM EDT Adjunct Instructor Chemistry assist with procedure Martines catheter balloon deflated and catheter removed and discarded intact for procedure Eli Bull RN [facility]08-08-2024 Nurse Note* Eli Bull RN - 02/17/2024 8:46 AM EDT Adjunct Instructor Chemistry assist with procedure Martines catheter balloon deflated and catheter removed and discarded intact for procedure Eli Bull RN documented in [facility]Mart[facility] Note* Exam Date Time Procedure Performing Provider Status 01/28/24 9:20 AM Echocardiogram, Adult - CV Auth (Verified) [facility] Note. MICRO - Microbiology PROCEDURE: Blood Culture (bacterial) [*1] SOURCE: Blood BODY SITE: COLLECTED DATE/TIME: 01/21/2024 11:23 EDT RECEIVED DATE/TIME: 01/21/2024 19:09 EDT START DATE/TIME: 01/21/2024 19:09 EDT FREE TEXT SOURCE: FINAL REPORTS Final Report [] Verified Date/Time/Personnel: 01/26/2024 19:59 EDT Blood Culture: No Growth at 5 days. PRELIMINARY REPORTS Preliminary Report [] Verified Date/Time/Personnel: 01/21/2024 20:00 EDT Culture has been received in lab and is no growth to date. Routine cultures are held for 5 days. Performing Locations *1: This test was performed at: [facility], [address] [place] [address], [facility] , [facility] ([place])01-25-2024 Note. MICRO - Microbiology PROCEDURE: Blood Culture (bacterial) [*1] SOURCE: Blood BODY SITE: COLLECTED DATE/TIME: 01/21/2024 11:23 EDT RECEIVED DATE/TIME: 01/21/2024 19:09 EDT START DATE/TIME: 01/21/2024 19:09 EDT FREE TEXT SOURCE: FINAL REPORTS Final Report [] Verified Date/Time/Personnel: 01/25/2024 07:31 EDT Enterococcus faecalis Isolated from aerobe bottle only. Staphylococcus coagulase negative Isolated from aerobe bottle only. 1 out of 2 sets positive Sensitivity testing not indicated. Please contact Microbiology if further work-up is required. PRELIMINARY REPORTS Preliminary Report [] Verified Date/Time/Personnel: 01/24/2024 10:37 EDT Enterococcus faecalis Isolated from aerobe bottle only. KIARA to follow Staphylococcus coagulase negative Isolated from aerobe bottle only. 1 out of 2 sets positive Organism is a potential contaminant. Clinical Significance undetermined. Please contact Microbiology if further work-up is required. Preliminary Report [] Verified Date/Time/Personnel: 01/21/2024 20:00 EDT Culture has been received in lab and is no growth to date. Routine cultures are held for 5 days. STAINS GSAER [] Verified Date/Time/Personnel: 01/22/2024 11:09 EDT Gram Positive Cocci SUSCEPTIBILITY RESULTS Enterococcus faecalis Antibiotic KIARA Dilut KIARA Inter Ampicillin <=2 Susceptible Ciprofloxacin >2 Resistant Gentamicin <=500 Susceptible synergy ID Panel Not Not Applicable Applicable Levofloxacin >4 Resistant Penicillin 2 Susceptible Vancomycin 1 Susceptible Performing Locations *1: This test was performed at: [address], [facility] , [facility])01-21-2024 Hospital Discharge instructions Patient Education 01/21/2024 13:13:49 Understanding Bradycardia Understanding Bradycardia Your heart has an electrical system that sends signals to control the heartbeat. Any abnormal change in the speed or pattern of the heartbeat is called an arrhythmia. An arrhythmia that causes the heart to beat slower than normal is called bradycardia. There are many types of bradycardia. In healthy children and adults, bradycardia is often normal, particularly during sleep. Sometimes bradycardiais caused by failure of the heart s natural timer or failure of the electrical pathways within the heart. Depending on the type you have and how severe it is, you may need treatment. What causes bradycardia? Many things can cause bradycardia, including: Natural aging process Coronary artery disease Heart attack Heart muscle disease Problems with the SA node. This is the heart s natural pacemaker that starts each heartbeat. Problems with the electrical pathways in the heart Problems with the structure of the heart that you are born with Infection Use of certain medicines Electrolyte imbalance Underactive thyroid Sleep apnea Increased pressure in the brain or stroke Well-conditioned athletes often have a naturally slow heart rate. What are the symptoms of bradycardia? Bradycardia can cause a slow or irregular heartbeat. It can also make it harder for the heart to pump blood to the body. This may cause symptoms such as: Tiredness Weakness Loss of ability to exercise Shortness of breath Dizziness or fainting Chest pain Heart failure Some people with bradycardia have no symptoms at all. How is bradycardia treated? Treatment for bradycardia depends on the cause. It also depends on the type you have and how severeyour symptoms are. If you need treatment, your options may include: Treatment of the underlying cause. For instance, if a medicine is causing bradycardia, stopping themedicine, under your doctor s guidance, may correct the problem. Or if a condition such as an underactive thyroid is the cause, treating the thyroid may keep bradycardia from coming back. Medicines. Medicines may be used to treat conditions that cause bradycardia. Some medicines can also be used in the short-term to increase the heart rate. These are often not long-term solutions. Temporary pacing. Pacing is used to help regulate your heartbeat.When the heart beats too slowly, the device sends signals to keep the heart beating at the right pace. A temporary pacemaker may be connected to the heart using wires guided through a blood vessel in your neck or leg to the heart. This is also sometimes done using special pads placed on the chest. This may be used in an emergency, as a bridge to permanent pacing, when pacing is only needed short- term, or to further evaluate your condition. Pacemaker. This is a device that is placed permanently under the skin in your chest and connected to your heart. When the heart beats too slowly, the device sends signals to keep the heart beating atthe right pace. What are the complications of bradycardia? These can include: Development of other types of arrhythmias Heart failure. This problem occurs when the heart weakens so much that it no longer pumps blood well. Sudden cardiac arrest. This is when the heart suddenly stops beating. When should I call my healthcare provider? Call your healthcare provider right away if you have any of these: Symptoms that don t get better with treatment, or get worse New symptoms [id number] [employer]. [address] [place] [address], [place] [address]. All rights reserved. This information is not intended as a substitute for professional medical care. Always follow yourhealthcare professional's instructions. Follow Up Care 01/21/2024 11:12:10 With:GAVINO AG APRN-GAS PROVER Address: [address] [facility] [address] [place] [address] [phone] When:2-4 days [facility] Francine 07-12-2024 Emergency department Discharge summary Discharge Instructions Thank you for allowing [facility] to assist you with your healthcare needs. The following is importantdischarge information regarding your hospital visit. Diagnosis from Today's Visit Bradycardia Decreased level of consciousness What to Do Next Instructions from Your Care Team Call your scientific editor and make a follow-up appointment. You have persistent low heart rate which may need further testing or change in your medications. Your scientific editor did order an echocardiogramwhich should be completed. No qualifying data available. Post Acute Orders No qualifying data available. You Need to Schedule the Following Appointments Follow Up with GAVINO AG When:Within 2-4 days Where:[address] [place] [address] [phone] Allergies Nuprin Unknown misc non-codified allergy unknown Medications Please ask your primary doctor or pharmacist before taking any other medication not listed, including over the counter drugs, herbal medications, vitamins and or supplements as they may interact withyour home medications. What How Much When Why Instructions Last Dose Unchanged acetaminophen-oxyCODONE (acetaminophen-oxyCODONE 325 mg-5 mg oral tablet) 1 tab(s) by mouth Every 6 hours as needed for for pain Unchanged albuterol Unchanged amLODIPine (amLODIPine 5 mg oral tablet) 1 tab(s) by mouth Once a day Unchanged apixaban (Eliquis 5 mg oral tablet) Unchanged ascorbic acid (Vitamin C 500 mg oral tablet) 1 tab(s) by mouth Once a day Unchanged aspirin (aspirin 81 mg oral tablet, chewable) 1 tab(s) Chewed Once a day Duration: 30 Days Unchanged atorvastatin (atorvastatin 20 mg oral tablet) 1 tab(s) by mouth Once a day Diabetes mellitus type 2 Duration: 90 Days Unchanged budesonide-formoterol (budesonide-formoterol 160 mcg-4.5 mcg/ inh Inhaler) 2 puff(s) by inhalation Every day Duration: 90 Days Unchanged bumetanide (bumetanide 1 mg oral tablet) 1 tab(s) by mouth Two (2) times a day Unchanged collagenase topical (Santyl 250 units/ g topical ointment) 1 application Topical Once a day Unchanged ferrous sulfate (IRON (ferrous sulfate 325 mg) 65 mg oral tablet) 1 tab(s) by mouth Once a day Take with food. Unchanged gabapentin (gabapentin 300 mg oral capsule) 1 cap by mouth Three (3) times a day Unchanged insulin glargine (Lantus 100 units/ mL10 ml vial solution) 75 unit(s) Subcutaneous (INT) Once a day Unchanged insulin lispro (HumaLOG) (HumaLOG 100 units/ mL subcutaneous solution) Give 0-5 units/dose Subcutaneous Three (3) times a day before meals Unchanged levoFLOXacin (levoFLOXacin 750 mg oral tablet) 1 tab(s) by mouth Once Unchanged melatonin (melatonin 3 mg oral tablet) 1 tab(s) by mouth Daily at bedtime as needed for Sleep Unchanged nystatin topical (nystatin 100,000 units/ g topical powder) 1 application Topical Two (2) times a day Unchanged polyethylene glycol 3350 (MiraLax oral powder for reconstitution) by mouth Two (2) times a day Unchanged potassium chloride (Potassium Chloride (Eqv-K-Tab) 20 mEq oral tablet, extended release) 1 tab(s) by mouth Two (2) times a day Take with food. Unchanged tamsulosin (tamsulosin 0.4 mg oral capsule) 1 cap by mouth Once a day Unchanged tirzepatide (Mounjaro 5 mg/ 0.5 mL subcutaneous solution) Unchanged traZODone (traZODone 50 mg oral tablet) 1 tab(s) by mouth Daily at bedtime Please take this list to your next doctor s visit. Bring all medications you take, including over the counter medications, herbals and other supplements with you to your doctor s visit. Patients and families are reminded to discard old lists and to update any records with all medication providers or retail pharmacies. Education Materials Understanding Bradycardia Your heart has an electrical system that sends signals to control the heartbeat. Any abnormal change in the speed or pattern of the heartbeat is called an arrhythmia. An arrhythmia that causes the heart to beat slower than normal is called bradycardia. There are many types of bradycardia. In healthy children and adults, bradycardia is often normal, particularly during sleep. Sometimes bradycardiais caused by failure of the heart s natural timer or failure of the electrical pathways within the heart. Depending on the type you have and how severe it is, you may need treatment. What causes bradycardia? Many things can cause bradycardia, including: Natural aging process Coronary artery disease Heart attack Heart muscle disease Problems with the SA node. This is the heart s natural pacemaker that starts each heartbeat. Problems with the electrical pathways in the heart Problems with the structure of the heart that you are born with Infection Use of certain medicines Electrolyte imbalance Underactive thyroid Sleep apnea Increased pressure in the brain or stroke Well-conditioned athletes often have a naturally slow heart rate. What are the symptoms of bradycardia? Bradycardia can cause a slow or irregular heartbeat. It can also make it harder for the heart to pump blood to the body. This may cause symptoms such as: Tiredness Weakness Loss of ability to exercise Shortness of breath Dizziness or fainting Chest pain Heart failure Some people with bradycardia have no symptoms at all. How is bradycardia treated? Treatment for bradycardia depends on the cause. It also depends on the type you have and how severeyour symptoms are. If you need treatment, your options may include: Treatment of the underlying cause. For instance, if a medicine is causing bradycardia, stopping themedicine, under your doctor s guidance, may correct the problem. Or if a condition such as an underactive thyroid is the cause, treating the thyroid may keep bradycardia from coming back. Medicines. Medicines may be used to treat conditions that cause bradycardia. Some medicines can also be used in the short-term to increase the heart rate. These are often not long-term solutions. Temporary pacing. Pacing is used to help regulate your heartbeat.When the heart beats too slowly, the device sends signals to keep the heart beating at the right pace. A temporary pacemaker may be connected to the heart using wires guided through a blood vessel in your neck or leg to the heart. This is also sometimes done using special pads placed on the chest. This may be used in an emergency, as a bridge to permanent pacing, when pacing is only needed short- term, or to further evaluate your condition. Pacemaker. This is a device that is placed permanently under the skin in your chest and connected to your heart. When the heart beats too slowly, the device sends signals to keep the heart beating atthe right pace. What are the complications of bradycardia? These can include: Development of other types of arrhythmias Heart failure. This problem occurs when the heart weakens so much that it no longer pumps blood well. Sudden cardiac arrest. This is when the heart suddenly stops beating. When should I call my healthcare provider? Call your healthcare provider right away if you have any of these: Symptoms that don t get better with treatment, or get worse New symptoms [phone] [employer]. [address] [place] [address]. All rights reserved. This information is not intended as a substitute for professional medical care. Always follow yourhealthcare professional's instructions. Additional Information VACCINATE! IT SAVES LIVES! Members of the community who have not yet received the COVID-19 vaccine and would like to receive it can visit one of [facility] vaccine clinics. There are many vaccine clinic locations within the [facility]. For locations and available times, please visit www.gettheshot.coronavirus.[place].gov/. It is important to note that some COVID mobile vaccine clinics are held outdoors and may be canceled in rainy or stormy conditions. To learn more about pediatric vaccinations (ages 5-11), we invite you to visit the [employer] [facility] webpage. https://www.[employer].org/pages/9708-Wldkz-Vsivyhdyowj-Sjtxldnmcc-Fhwcu-Vji stions.htmlTo learn more about the COVID-19 vaccine, we invite you to visit the CDC website for a list of frequently asked questions. https://www.cdc.gov/coronavirus/2019-ncov/vaccines/faq.html [place] [email or web address].plChart Patient Portal Access Instructions: Stay connected with your healthcare team and access your personal medical information anytime with the [email or web address]. [email or web address] Patient Portal. If you would like a full copy of your medical records please contact the [facility] Medical Records Department Wednesday through Wednesday between 8a.m. and 4:30p.m. Please follow the directions below to access the portal: 1.Access the email account you provided upon registration to the [facility].2.Look for an invitation email from [facility].3.Open the email and access the invitation link: Accept Invitation to [email or web address]. com4.Fill in the required breen to create your account. Sign into [email or web address] with your username and password that you created in the above steps to stay up to date. You can then view a summary of results, a summary of your visits, and the ability to download your summaries to your computer or send the information securely to a physician. Remember that your healthcare information is confidential, so carefully consider who you will allow to register on the [employer] Patient Portal for access to your information. You can also access the [employer] Patient Portal on the [employer]. Simply click on Health Records under [employer] and then click on the [employer] logo. HOW TO SAFELY DISPOSE OF PRESCRIPTION MEDICATIONS Please use one of the following methods to safely dispose of your unused medications. 1.Use a drug disposal kit: the drug disposal pouch allows you to safely discard your old and unuseddrugs. Ask your nurse to give you one when you are discharged.2.Visit a local take-back location: Many local pharmacies and police departments have programs that collect old and unwanted prescriptiondrugs. Call your local pharmacy or go to http://Wikidot.Rebit/3V4Lh4g to find one close to you.3.Make use of household items: Use cat litter or old coffee grounds to dispose medications if other options arenot available. Mix your drugs with these household products, seal them in an airtight container andthrow it into the garbage. Call [facility]: [phone] to be sure your drugs can be disposed of in this way. Some medicines may require a different approach.4.Never flush your medications down the toilet. IF YOU HAVE BEEN PRESCRIBED AN OPIOIDS FOR PAIN If you have been prescribed an opioid (such as hydrocodone, oxycodone or morphine), it is critical to understand the possible side effects and risks of opioid pain medications. Even when taken as directed, opioids can have several side effects including: Tolerance, meaning you might need to take more of a medication for the same pain relief. Nausea, vomiting and/or constipation. Sleepiness, dizziness, dry mouth, confusion, depression or itching. Physical dependence, meaning you have withdrawal symptoms when a medication is stopped ? this can develop within a few days. KNOW YOUR RESPONSIBILITIES It is important to know exactly how much and how often to take the opioid pain medications you are prescribed. Never take opioids in higher amounts or more often than prescribed. Do not combine opioids with alcohol or other drugs that cause drowsiness, such as benzodiazepines, also known as benzos,including diazepam and alprazolam, muscle relaxants or sleep aids. Never sell or share prescriptionopioids. This is illegal. Store opioids in a secure place and out of reach of others (including children, family, friends and visitors). The last page(s) of this document has been signed and retained as a CHART COPY Signatures Patient Education Materials Understanding Bradycardia Medication Leaflets My discharge plan and instructions have been reviewed and explained to me and I,JADON ALVAREZ understand my current condition and have read and understand these discharge instructions. I have received a written copy of the plan/instructions. If I have questions, I am aware that I should contact my doctor. 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 There is a shallow inspiration present with some vascular crowding. No infiltrate or pleural fluid seen. Minor degenerative change noted in the spine. IMPRESSION: Hypoventilatory changes. No acute process. Interpreted by: Amarjit Ortiz MD Preliminary Report By: Amarjit Ortiz MD Electronically signed By Amarjit Ortiz MD Dictated Date: 01/21/2024 12:23:58 PM Prelim Date: 01/21/2024 12:24:34 PM Sign Date: 01/21/2024 12:24:34 PM [facility] NoteSinus rhythm Left bundle branch block Electronic Signature: FERNANDO ZEE MD 01/21/2024 11:31:08[facility] 07-10-2024 Telephone encounter Note* Telephone Encounter - Isela Shea - 01/19/2024 10:40 AM EDT snf called to RS appt, no transport Moved to 02/17/2024 Isela Shea [facility]07-10-2024 Miscellaneous Notes* Telephone Encounter - Isela Shea - 01/19/2024 10:40 AM EDT snf called to RS appt, no transport Moved to 02/17/2024 Isela She[facility] NoteHNO ID: [id number] Author: SHAR DOWNS MD Service: ? Author Type: Physician Type: Progress Notes Filed: 01/12/2024 15:38 Note Text: - [facility] NEW PATIENT CONSULT/HISTORY AND PHYSICAL PATIENT: Jadon Alvarez (68 year old) REFERRING PROVIDER: PCP: Ignacia Reyna, DO Consultation requested by for an opinion regarding Jadon Alvarez. My final recommendations will be communicated back to the requesting physician by way of shared Medical record or letter to requesting physician. ASSESSMENT: 1. Difficulty urinating - ICD9: 788.99, ICD10: R39.198 (primary diagnosis) 2. Benign prostatic hyperplasia with urinary retention - ICD9: 600.01, 788.20, ICD10: N40.1, R33.8 Poor health Wheelchair, leg wound with vac In nursing facility Morbid obesity PLAN: Urinary retention. Martines in one week. From [facility]. Prior to that, could only void small amounts. On tamsulosin for years. Nursing had a very difficult time getting his Martines in. Discussed voiding trial versus cystoscopy. He wishes a scope. We discussed the planned procedure. Risks, benefits, and alternatives of the procedure were discussed. Patient acknowledges understanding and consents to proceed. Continue tamsulosin for now FOLLOW UP: Return in about 4 weeks (around 02/09/2024). CHIEF COMPLAINT: Patient presents with: Difficulty Urinating HISTORY OF PRESENT ILLNESS: Mr. Alvarez is a 68 year old male who presents as a new consultation for: Complaint: urinary retention Location: bladder Radiation: none Duration: weeks Quality: obstructive Severity: severe Relieving: none Exacerbating: none Course: new Associated conditions: BPH, difficult Martines insert Diagnostics: none Treatments: none I personally reviewed the past medical records received from the referring provider. REVIEW OF SYSTEMS: Genitourinary: Unable to void Constitutional: unintentional weight loss - denies, fevers - denies Cardiovascular: new or worsening chest pain - denies Respiratory: new or worsening shortness of breath - denies Gastrointestinal: constipation - denies, vomiting - denies Hematologic/Lymphatic: easy bleeding or bruising - denies ALLERGIES: ALLERGIES Allergen Reactions Ibuprofen Unknown MEDICATIONS: amLODIPine (NORVASC) 5 mg tablet Take 1 tablet by mouth every afternoon. bumetanide (BUMEX) 1 mg tablet TAKE 12 TABLET BY MOUTH TWICE DAILY ELIQUIS 5 mg tab(s) Take 1 tablet by mouth every 12 hours. ferrous sulfate 325 mg (65 mg iron) EC tablet tamsulosin HCl (FLOMAX ORAL) Flomax Oral MOUNJARO 5 mg/0.5 mL pen injector INJECT 5MGS SUBCUTANEOUS EVERY WEEK ROTATE INJECTION SITES traZODone (DESYREL) 50 mg tablet oxyCODONE-acetaminophen (PERCOCET) 5-325 mg tablet TAKE ONE TABLET BY MOUTH EVERY SIX HOURS NEEDED FOR PAIN FOR 3 DAYS SYMBICORT 160-4.5 mcg/actuation inhaler INHALE 2 PUFFS EVERY DAY nystatin (MYCOSTATIN) powder Apply to affected area four times daily. gabapentin (NEURONTIN) 300 mg capsule Take 300 mg by mouth three times a day. atorvastatin (LIPITOR) 20 mg tablet Take 20 mg by mouth once daily. aspirin 81 mg cap Take by mouth. PAST HISTORY: PAST MEDICAL HISTORY Diagnosis Date Atrial fibrillation (HCC) BPH with obstruction/lower urinary tract symptoms CKD (chronic kidney disease) stage 2, GFR 60-89 ml/min Diabetes mellitus (HCC) Renal carcinoma, left (HCC) PAST SURGICAL HISTORY Procedure Laterality Date COLON VIA STOMA RESECTION REPAIR INCISIONAL HERNIA,REDUCIBLE History reviewed. No pertinent family history. Social History Tobacco Use Smoking status: Former Types: Cigarettes Quit date: 2003 Years since quittin.5 Smokeless tobacco: Never Substance Use Topics Alcohol use: Not Currently Drug use: Never PHYSICAL EXAMINATION: BP 143/74 Pulse (!) 48 Genitourinary: Martines yellow; unable to perform NIKI Constitutional: In no acute distress. Disheveled Respiratory: Normal respiratory effort without use of accessory muscles. Musculoskeletal: Wheelchair Cardiovascular: Regular rate Gastrointestinal: Nondistended, obese DATA: Clinic: URINALYSIS: No results found for this basename: uglucpoc,ubilipoc,uketonpoc,usgpoc,uhbpoc,uphpoc,upropoc,uuropoc,unitpoc,uwbcpoc ,ucolpoc,uclarpoc Laboratory: Creatinine Date Value Ref Range Status 11/25/2023 1.36 0.50 - 1.40 mg/dL Final Comment: Patients receiving either N-Acetylcysteine (NAC) or Metamizole prior to venipuncture, may have falsely depressed results. 11/18/2023 1 (more content not included)...[facility]07-03-2024 History of Present illness Narrative* Shar Downs MD - 01/12/2024 3:34 PM EDT Images from the original note were not included. [facility] NEW PATIENT CONSULT/HISTORY AND PHYSICAL PATIENT: Jadon Alvarez (68 year old) REFERRING PROVIDER: PCP: Ignacia Reyna, DO Consultation requested by for an opinion regarding Jadon Alvarez. My final recommendations willbe communicated back to the requesting physician by way of shared Medical record or letter to requesting physician. ASSESSMENT: 1. Difficulty urinating - ICD9: 788.99, ICD10: R39.198 (primary diagnosis) 2. Benign prostatic hyperplasia with urinary retention - ICD9: 600.01, 788.20, ICD10: N40.1, R33.8 Poor health Wheelchair, leg wound with vac In nursing facility Morbid obesity PLAN: Urinary retention. Martines in one week. From [facility]. Prior to that, could only void small amounts. On tamsulosin for years. Nursing had a very difficult time getting his Martines in. Discussed voiding trial versus cystoscopy. He wishes a scope. We discussed the planned procedure. Risks, benefits, and alternatives of the procedure were discussed. Patient acknowledges understanding and consents to proceed. Continue tamsulosin for now FOLLOW UP: Return in about 4 weeks (around 02/09/2024). CHIEF COMPLAINT: Patient presents with: Difficulty Urinating HISTORY OF PRESENT ILLNESS: Mr. Alvarez is a 68 year old male who presents as a new consultation for: Complaint: urinary retention Location: bladder Radiation: none Duration: weeks Quality: obstructive Severity: severe Relieving: none Exacerbating: none Course: new Associated conditions: BPH, difficult Martines insert Diagnostics: none Treatments: none I personally reviewed the past medical records received from the referring provider. REVIEW OF SYSTEMS: Genitourinary: Unable to void Constitutional: unintentional weight loss - denies, fevers - denies Cardiovascular: new or worsening chest pain - denies Respiratory: new or worsening shortness of breath - denies Gastrointestinal: constipation - denies, vomiting - denies Hematologic/Lymphatic: easy bleeding or bruising - denies ALLERGIES: ALLERGIES Allergen Reactions Ibuprofen Unknown MEDICATIONS: amLODIPine (NORVASC) 5 mg tablet Take 1 tablet by mouth every afternoon. bumetanide (BUMEX) 1 mg tablet TAKE 12 TABLET BY MOUTH TWICE DAILY ELIQUIS 5 mg tab(s) Take 1 tablet by mouth every 12 hours. ferrous sulfate 325 mg (65 mg iron) EC tablet tamsulosin HCl (FLOMAX ORAL) Flomax Oral MOUNJARO 5 mg/0.5 mL pen injector INJECT 5MGS SUBCUTANEOUS EVERY WEEK ROTATE INJECTION SITES traZODone (DESYREL) 50 mg tablet oxyCODONE-acetaminophen (PERCOCET) 5-325 mg tablet TAKE ONE TABLET BY MOUTH EVERY SIX HOURS NEEDED FOR PAIN FOR 3 DAYS SYMBICORT 160-4.5 mcg/actuation inhaler INHALE 2 PUFFS EVERY DAY nystatin (MYCOSTATIN) powder Apply to affected area four times daily. gabapentin (NEURONTIN) 300 mg capsule Take 300 mg by mouth three times a day. atorvastatin (LIPITOR) 20 mg tablet Take 20 mg by mouth once daily. aspirin 81 mg cap Take by mouth. PAST HISTORY: PAST MEDICAL HISTORY Diagnosis Date Atrial fibrillation (HCC) BPH with obstruction/lower urinary tract symptoms CKD (chronic kidney disease) stage 2, GFR 60-89 ml/min Diabetes mellitus (HCC) Renal carcinoma, left (HCC) PAST SURGICAL HISTORY Procedure Laterality Date COLON VIA STOMA RESECTION REPAIR INCISIONAL HERNIA,REDUCIBLE History reviewed. No pertinent family history. Social History Tobacco Use Smoking status: Former Types: Cigarettes Quit date: 2003 Years since quittin.5 Smokeless tobacco: Never Substance Use Topics Alcohol use: Not Currently Drug use: Never PHYSICAL EXAMINATION: BP 143/74 Pulse (!) 48 Genitourinary: Martines yellow; unable to perform NIKI Constitutional: In no acute distress. Disheveled Respiratory: Normal respiratory effort without use of accessory muscles. Musculoskeletal: Wheelchair Cardiovascular: Regular rate Gastrointestinal: Nondistended, obese DATA: Clinic: URINALYSIS: No results found for this basename: uglucpoc,ubilipoc,uketonpoc,usgpoc,uhbpoc,uphpoc,upropoc,uuropoc ,unitpoc,uwbcpoc,ucolpoc,uclarpoc Laboratory: Creatinine Date Value Ref Range Status 11/25/2023 1.36 0.50 - 1.40 mg/dL Final Comment: Patients receiving either N-Acetylcysteine (NAC) or Metamizole prior to venipuncture, may have falsely depressed results. 11/18/2023 1.35 0.50 - 1.40 mg/dL Final Comment: Patients receiving either N-Acetylcysteine (NAC) or Metamizole prior to venipuncture, may have falsely depressed results. 01/31/2013 0.82 0.67 - 1.17 mg/dL Final Cultures: No data to display Susceptibility Tests - Past 1 Year No results found for the last [address]. [address] Scan Results No results found for this or any previous visit from the past 1095 days. PSA: No results found for: PSA Hold off on PSA screening given acute retention I have reviewed the problem list, family history, and social history documented by my ancillary staff. Shar Downs MD Staff Urologist [facility]. MICRO - Microbiology PROCEDURE: Blood Culture (bacterial) [*1] SOURCE: Blood BODY SITE: COLLECTED DATE/TIME: 11/13/2023 20:37 EDT RECEIVED DATE/TIME: 11/14/2023 12:41 EDT START DATE/TIME: 11/14/2023 12:41 EDT FREE TEXT SOURCE: FINAL REPORTS Final Report [] Verified Date/Time/Personnel: 11/19/2023 12:59 EDT Blood Culture: No Growth at 5 days. PRELIMINARY REPORTS Preliminary Report [] Verified Date/Time/Personnel: 11/14/2023 13:59 EDT Culture has been received in lab and is no growth to date. Routine cultures are held for 5 days. Performing Locations *1: This test was performed at: [facility], [address] [place] [address], [facility] , [facility] ([place])11-19-2023 Note. MICRO - Microbiology PROCEDURE: Blood Culture (bacterial) [*1] SOURCE: Blood BODY SITE: COLLECTED DATE/TIME: 11/13/2023 20:37 EDT RECEIVED DATE/TIME: 11/14/2023 12:41 EDT START DATE/TIME: 11/14/2023 12:41 EDT FREE TEXT SOURCE: FINAL REPORTS Final Report [] Verified Date/Time/Personnel: 11/19/2023 12:59 EDT Blood Culture: No Growth at 5 days. PRELIMINARY REPORTS Preliminary Report [] Verified Date/Time/Personnel: 11/14/2023 13:59 EDT Culture has been received in lab and is no growth to date. Routine cultures are held for 5 days. Performing Locations *1: This test was performed at: [facility], [address] [place] [address], [id number] , [facility] ([place])11-13-2023 Hospital Discharge instructions Patient Education 11/13/2023 21:40:24 Cellulitis Skin Infection Cellulitis Cellulitis is an infection of the deep layers of skin. A break in the skin, such as a cut or scratch, can let bacteria under the skin. If the bacteria get to deep layers of the skin, it can be serious. If not treated, cellulitis can get into the bloodstream and lymph nodes. The infection can then spread throughout the body. This causes serious illness. Cellulitis causes the affected skin to become red, swollen, warm, and sore. The reddened areas havea visible border. An open sore may leak fluid (pus). You may have a fever, chills, and pain. Cellulitis is treated with antibiotics taken for 7 to 10 days. An open sore may be cleaned and covered with cool wet gauze. Symptoms should get better 1 to 2 days after treatment is started. Make sure to take all the antibiotics for the full number of days until they are gone. Keep taking the medicine even if your symptoms go away. Home care Follow these tips: Limit the use of the part of your body with cellulitis. If the infection is on your leg, keep your leg raised while sitting. This will help to reduce swelling. Take all of the antibiotic medicine exactly as directed until it is gone. Do not miss any doses, especially during the first 7 days. Don t stop taking the medicine when your symptoms get better. Keep the affected area clean and dry. Wash your hands with soap and warm water before and after touching your skin. Anyone else who touches your skin should also wash his or her hands. Don't share towels. Follow-up care Follow up with your healthcare provider, or as advised. If your infection does not go away on the first antibiotic, your healthcare provider will prescribe a different one. When to seek medical advice Call your healthcare provider right away if any of these occur: Red areas that spread Swelling or pain that gets worse Fluid leaking from the skin (pus) Fever higher of 100.4 F (38.0 C) or higher after 2 days on antibiotics 4620-9031 [employer]. [address] [place] [address]. All rights reserved. This information is not intended as a substitute for professional medical care. Always follow yourhealthcare professional's instructions. Follow Up Care 11/13/2023 19:57:40 With:your wound care doctor Address: When:2-4 days [facility] 05-04-2024 Note Discharge Instructions Thank you for allowing [facility] to assist you with your healthcare needs. The following is importantdischarge information regarding your hospital visit. Diagnosis from Today's Visit Cellulitis Chronic wound Wound infection - uncomplicated, RLE, Wound infection - uncomplicated, RLE What to Do Next Instructions from Your Care Team Please discuss your wound care and appearance with your wound care doctor. You were started on antibiotics today. Your creatinine level was mildly increased today. This can be from dehydration or other causes. Your doctor needs to recheck this in the next week. No qualifying data available. Post Acute Orders No qualifying data available. You Need to Schedule the Following Appointments Follow Up with your wound care doctor When Within 2-4 days Where: Allergies Nuprin (Unknown) misc non-codified allergy (unknown) Medications Please ask your primary doctor or pharmacist before taking any other medication not listed, including over the counter drugs, herbal medications, vitamins and or supplements as they may interact withyour home medications. What How Much When Why Instructions Last Dose New doxycycline (doxycycline hyclate 100 mg oral capsule) 1 cap by mouth Two (2) times a day Duration: 10 Days Printed Prescription Unchanged albuterol Unchanged amLODIPine (amLODIPine 5 mg oral tablet) 1 tab(s) by mouth Once a day Unchanged apixaban (Eliquis 5 mg oral tablet) Unchanged ascorbic acid (Vitamin C 500 mg oral tablet) 1 tab(s) by mouth Once a day Unchanged aspirin (aspirin 81 mg oral tablet, chewable) 1 tab(s) Chewed Once a day Duration: 30 Days Unchanged atorvastatin (atorvastatin 20 mg oral tablet) 1 tab(s) by mouth Once a day Diabetes mellitus type 2 Duration: 90 Days Unchanged budesonide-formoterol (budesonide-formoterol 160 mcg-4.5 mcg/ inh Inhaler) 2 puff(s) by inhalation Every day Duration: 90 Days Unchanged bumetanide (bumetanide 1 mg oral tablet) 0.5 tab(s) by mouth Two (2) times a day Unchanged carvedilol (carvedilol 25 mg oral tablet) Unchanged collagenase topical (Santyl 250 units/ g topical ointment) 1 application Topical Once a day Unchanged dilTIAZem (DilTIAZem (Eqv-Cardizem CD) 180 mg/ 24 hours oral capsule, extended release) Unchanged enoxaparin (Lovenox 40 mg/ 0.4 mL injectable solution) 0.4 Milliliter Subcutaneous Once a day Duration: 14 Days Unchanged ferrous sulfate (IRON (ferrous sulfate 325 mg) 65 mg oral tablet) 1 tab(s) by mouth Once a day Take with food. Unchanged furosemide (furosemide 40 mg oral tablet) Unchanged gabapentin (gabapentin 300 mg oral capsule) 1 cap by mouth Three (3) times a day Unchanged insulin glargine (Lantus 100 units/ mL10 ml vial solution) 75 unit(s) Subcutaneous (INT) Once a day Unchanged insulin lispro (HumaLOG) (HumaLOG 100 units/ mL subcutaneous solution) Give 0-5 units/dose Subcutaneous Three (3) times a day before meals Unchanged melatonin (melatonin 3 mg oral tablet) 1 tab(s) by mouth Daily at bedtime as needed for Sleep Unchanged metoprolol (Lopressor) 12.5 Milligram by mouth Two (2) times a day Unchanged nystatin topical (nystatin 100,000 units/ g topical powder) 1 application Topical Two (2) times a day Unchanged polyethylene glycol 3350 (MiraLax oral powder for reconstitution) by mouth Two (2) times a day Unchanged potassium chloride (Potassium Chloride (Eqv-K-Tab) 20 mEq oral tablet, extended release) 1 tab(s) by mouth Two (2) times a day Take with food. Unchanged tirzepatide (Mounjaro 5 mg/ 0.5 mL subcutaneous solution) Please take this list to your next doctor s visit. Bring all medications you take, including over the counter medications, herbals and other supplements with you to your doctor s visit. Patients and families are reminded to discard old lists and to update any records with all medication providers or retail pharmacies. Medication Leaflets doxycycline (oral/injection) (ROMINA darrel humphrey) Acticlate, Adoxa, Alodox, Avidoxy, Doryx, Doryx MPC, Lymepak, Mondoxyne NL, Monodox, Morgidox, Morgidox [id number], Morgidox [id number], Okebo, Oracea, Targadox, Vibramycin, Vibramycin Monohydrate What is the most important information I should know about doxycycline? You should not take this medicine if you are allergic to any tetracycline antibiotic. Children younger than 8 years old should use doxycycline only in cases of severe or life-threatening conditions. This medicine can cause permanent yellowing or graying of the teeth in children Using doxycycline during could harm the unborn baby or cause permanent tooth discoloration later in the baby's life. What is doxycycline? Doxycycline is a tetracycline antibiotic that Doxycycline is used to treat many different bacterial infections, such as acne, urinary tract infections, intestinal infections, eye infections, gonorrhea, chlamydia, periodontitis (gum disease), andothers. Doxycycline is also used to treat blemishes, bumps, and acne-like lesions caused by rosacea. Doxycycline will not treat facial redness caused by rosacea. Some forms of doxycycline are used to prevent malaria, to treat anthrax, or to treat infections caused by mites, ticks, or lice. Doxycycline may also be used for purposes not listed in this medication guide. What should I discuss with my healthcare provider before taking doxycycline? You should not take this medicine if you are allergic to doxycycline or other tetracycline antibiotics such as demeclocycline, minocycline, tetracycline, or tigecycline. Tell your doctor if you have ever had: liver disease; kidney disease; asthma or sulfite allergy; increased pressure inside your skull; or if you also take isotretinoin, seizure medicine, or a blood thinner such as warfarin (Coumadin). If you are using doxycycline to treat gonorrhea, your doctor may test you to make sure you do not also have syphilis, another sexually transmitted disease. Taking this medicine during may affect tooth and bone development in the unborn baby. Taking doxycycline during the last half of can cause permanent tooth discoloration later in the baby's life. Tell your doctor if you are or if you become . Doxycycline can make control pills less effective. Ask your doctor about using a non-hormonalbirth control (condom, diaphragm with spermicide) to prevent . Doxycycline can pass into breast milk and may affect bone and tooth development in a nursing . Do not breastfeed while you are taking doxycycline. Doxycycline can cause permanent yellowing or graying of the teeth in children younger than 8 years old. Children should use doxycycline only in cases of severe or life-threatening conditions such as anthrax or Johnston spotted fever. The benefit of treating a serious condition may outweigh any risks to the child's tooth development. How should I take doxycycline? Follow all directions on your prescription label and read all medication guides or instruction sheets. Use the medicine exactly as directed. Take doxycycline with a full glass of water. Drink plenty of liquids while you are taking doxycycline. Read and carefully follow any Instructions for Use provided with your medicine. Ask your doctor or pharmacist if you do not understand these instructions. Most brands of doxycyline may be taken with food or milk if the medicine upsets your stomach. Different brands of doxycycline may have different instructions about taking them with or without food. Take Oracea on an empty stomach, at least 1 hour before or 2 hours after a meal. You may need to split a doxycycline tablet to get the correct dose. Follow your doctor's instructions. Swallow a delayed-release capsule or tablet whole. Do not crush, chew, break, or open it. Measure liquid medicine with the dosing syringe provided, or with a special dose-measuring spoon ormedicine cup. If you do not have a dose-measuring device, ask your pharmacist for one. If you take doxycycline to prevent malaria: Start taking the medicine 1 or 2 days before entering an area where malaria is common. Continue taking the medicine every day during your stay and for at least 4 weeks after you leave the area. Doxycycline is usually given by injection only if you are unable to take the medicine by mouth. A healthcare provider will give you this injection as an infusion into a vein. Use this medicine for the full prescribed length of time, even if your symptoms quickly improve. Skipping doses can increase your risk of infection that is resistant to medication. Doxycycline will not treat a viral infection such as the flu or a common cold. Store at room temperature away from moisture, heat, and light. Throw away any unused medicine after the expiration date on the label has passed. Using doxycycline can cause damage to your kidneys. What happens if I miss a dose? Take the medicine as soon as you can, but skip the missed dose if it is almost time for your next dose. Do not take two doses at one time. What happens if I overdose? Seek emergency medical attention or call the Poison Help line at . What should I avoid while taking doxycycline? Do not take iron supplements, multivitamins, calcium supplements, antacids, or laxatives within 2 hours before or after taking doxycycline. Avoid taking any other antibiotics with doxycycline unless your doctor has told you to. Doxycycline could make you sunburn more easily. Avoid sunlight or tanning beds. Wear protective clothing and use sunscreen (SPF 30 or higher) when you are outdoors. Antibiotic medicines can cause diarrhea, which may be a sign of a new infection. If you have diarrhea that is watery or bloody, call your doctor. Do not use anti-diarrhea medicine unless your doctor tells you to. What are the possible side effects of doxycycline? Get emergency medical help if you have signs of an allergic reaction (hives, difficult breathing, swelling in your face or throat) or a severe skin reaction (fever, sore throat, burning in your eyes,skin pain, red or purple skin rash that spreads and causes blistering and peeling). Seek medical treatment if you have a serious drug reaction that can affect many parts of your body.Symptoms may include: skin rash, fever, swollen glands, flu- like symptoms, muscle aches, severe weakness, unusual bruising, or yellowing of your skin or eyes. This reaction may occur several weeks after you began using doxycycline. Call your doctor at once if you have: severe stomach pain, diarrhea that is watery or bloody; throat irritation, trouble swallowing; chest pain, irregular heart rhythm, feeling short of breath; little or no urination; low white blood cell counts--fever, chills, swollen glands, body aches, weakness, pale skin, easy bruising or bleeding; increased pressure inside the skull--severe headaches, ringing in your ears, dizziness, nausea, vision problems, pain behind your eyes; or signs of liver or pancreas problems--loss of appetite, upper stomach pain (that may spread to your back), tiredness, nausea or vomiting, fast heart rate, dark urine, jaundice (yellowing of the skin or eyes). Common side effects may include: nausea, vomiting, upset stomach, loss of appetite; mild diarrhea; skin rash or itching; darkened skin color; or vaginal itching or discharge. This is not a complete list of side effects and others may occur. Call your doctor for medical advice about side effects. You may report side effects to FDA at 8-400-DNL-8188. What other drugs will affect doxycycline? Sometimes it is not safe to use certain medications at the same time. Some drugs can affect your blood levels of other drugs you take, which may increase side effects or make the medications less effective. Other drugs may affect doxycycline, including prescription and rurd-tog-zrtwmil medicines, vitamins, and herbal products. Tell your doctor about all your current medicines and any medicine you start or stop using. Where can I get more information? Your pharmacist can provide more information about doxycycline. Remember, keep this and all other medicines out of the reach of children, never share your medicines with others, and use this medication only for the indication prescribed. Every effort has been made to ensure that the information provided by [employer]') is accurate, up-to-date, and complete, but no guarantee is made to that effect. Drug information contained herein may be time sensitive. [employer] information has been compiled for use by healthcare practitioners and consumers in the [place] and therefore [employer] does not warrant that uses outside of the [place] are appropriate, unless specifically indicated otherwise. [employer] drug information does not endorse drugs, diagnose patients or recommend therapy. [employer] drug information isan informational resource designed to assist licensed healthcare practitioners in caring for their p atients and/or to serve consumers viewing this service as a supplement to, and not a substitute for, the expertise, skill, knowledge and judgment of healthcare practitioners. The absence of a warningfor a given drug or drug combination in no way should be construed to indicate that the drug or drug combination is safe, effective or appropriate for any given patient. [employer] does not assume any responsibility for any aspect of healthcare administered with the aid of information [employer] provides. The information contained herein is not intended to cover all possible uses, directions, precautions, warnings, drug interactions, allergic reactions, or adverse effects. If you have questions about the drugs you are taking, check with your doctor, nurse or pharmacist. Copyright 4134-7477 [employer]. Version: 25.. Revision Date: 03/17/2023. Education Materials Cellulitis Cellulitis is an infection of the deep layers of skin. A break in the skin, such as a cut or scratch, can let bacteria under the skin. If the bacteria get to deep layers of the skin, it can be serious. If not treated, cellulitis can get into the bloodstream and lymph nodes. The infection can then spread throughout the body. This causes serious illness. Cellulitis causes the affected skin to become red, swollen, warm, and sore. The reddened areas havea visible border. An open sore may leak fluid (pus). You may have a fever, chills, and pain. Cellulitis is treated with antibiotics taken for 7 to 10 days. An open sore may be cleaned and covered with cool wet gauze. Symptoms should get better 1 to 2 days after treatment is started. Make sure to take all the antibiotics for the full number of days until they are gone. Keep taking the medicine even if your symptoms go away. Home care Follow these tips: Limit the use of the part of your body with cellulitis. If the infection is on your leg, keep your leg raised while sitting. This will help to reduce swelling. Take all of the antibiotic medicine exactly as directed until it is gone. Do not miss any doses, especially during the first 7 days. Don t stop taking the medicine when your symptoms get better. Keep the affected area clean and dry. Wash your hands with soap and warm water before and after touching your skin. Anyone else who touches your skin should also wash his or her hands. Don't share towels. Follow-up care Follow up with your healthcare provider, or as advised. If your infection does not go away on the first antibiotic, your healthcare provider will prescribe a different one. When to seek medical advice Call your healthcare provider right away if any of these occur: Red areas that spread Swelling or pain that gets worse Fluid leaking from the skin (pus) Fever higher of 100.4 F (38.0 C) or higher after 2 days on antibiotics 0311-6399 [employer]. [address] [place] [address]. All rights reserved. This information is not intended as a substitute for professional medical care. Always follow yourhealthcare professional's instructions. Additional Information VACCINATE! IT SAVES LIVES! Members of the community who have not yet received the COVID-19 vaccine and would like to receive it can visit one of [facility] vaccine clinics. There are many vaccine clinic locations within the [facility]. For locations and available times, please visit www.gettheshot.coronavirus.[place].gov/. It is important to note that some COVID mobile vaccine clinics are held outdoors and may be canceled in rainy or stormy conditions. To learn more about pediatric vaccinations (ages 5-11), we invite you to visit the [employer] [facility] webpage. https://www.[employer].org/pages/6285-Lzlrw-Nltcymossya-Dmfvsfvpub-Aayoy-Bvf stions.htmlTo learn more about the COVID-19 vaccine, we invite you to visit the CDC website for a list of frequently asked questions. https://www.cdc.gov/coronavirus/2019-ncov/vaccines/faq.html [email or web address] Patient Portal Access Instructions: Stay connected with your healthcare team and access your personal medical information anytime with the [email or web address] Patient Portal. If you would like a full copy of your medical records please contact the [facility] Medical Records Department Wednesday through Wednesday between 8a.m. and 4:30p.m. Please follow the directions below to access the portal: 1.Access the email account you provided upon registration to the [facility].2.Look for an invitation email from [facility].3.Open the email and access the invitation link: Accept Invitation to [email or web address].Fill in the required breen to create your account. Sign into [email or web address] with your username and password that you created in the above steps to stay up to date. You can then view a summary of results, a summary of your visits, and the ability to download your summaries to your computer or send the information securely to a physician. Remember that your healthcare information is confidential, so carefully consider who you will allow to register on the [email or web address] Patient Portal for access to your information. You can also access the [employer] Patient Portal on the [employer]. Simply click on Health Records under [employer] and then click on the [employer] logo. HOW TO SAFELY DISPOSE OF PRESCRIPTION MEDICATIONS Please use one of the following methods to safely dispose of your unused medications. 1.Use a drug disposal kit: the drug disposal pouch allows you to safely discard your old and unuseddrugs. Ask your nurse to give you one when you are discharged.2.Visit a local take-back location: Many local pharmacies and police departments have programs that collect old and unwanted prescriptiondrugs. Call your local pharmacy or go to http://Wikidot.Rebit/3N6Kx7u to find one close to you.3.Make use of household items: Use cat litter or old coffee grounds to dispose medications if other options arenot available. Mix your drugs with these household products, seal them in an airtight container andthrow it into the garbage. Call [facility]: 911.351.5921 to be sure your drugs can be disposed of in this way. Some medicines may require a different approach.4.Never flush your medications down the toilet. IF YOU HAVE BEEN PRESCRIBED AN OPIOIDS FOR PAIN If you have been prescribed an opioid (such as hydrocodone, oxycodone or morphine), it is critical to understand the possible side effects and risks of opioid pain medications. Even when taken as directed, opioids can have several side effects including: Tolerance, meaning you might need to take more of a medication for the same pain relief. Nausea, vomiting and/or constipation. Sleepiness, dizziness, dry mouth, confusion, depression or itching. Physical dependence, meaning you have withdrawal symptoms when a medication is stopped ? this can develop within a few days. KNOW YOUR RESPONSIBILITIES It is important to know exactly how much and how often to take the opioid pain medications you are prescribed. Never take opioids in higher amounts or more often than prescribed. Do not combine opioids with alcohol or other drugs that cause drowsiness, such as benzodiazepines, also known as benzos,including diazepam and alprazolam, muscle relaxants or sleep aids. Never sell or share prescriptionopioids. This is illegal. Store opioids in a secure place and out of reach of others (including children, family, friends and visitors). The last page(s) of this document has been signed and retained as a CHART COPY Signatures Patient Education Materials Cellulitis Skin Infection Medication Leaflets doxycycline (oral/injection) My discharge plan and instructions have been reviewed and explained to me and I,JADON ALVAREZ understand my current condition and have read and understand these discharge instructions. I have received a written copy of the plan/instructions. If I have questions, I am aware that I should contact my doctor. 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 HISTORY: ORDERING SYSTEM PROVIDED HISTORY: Reason for Exam: swelling FINDINGS: No acute fracture or dislocation. No periosteal reaction to suggest osteomyelitis by radiograph. Mild to moderate tricompartmental degenerative changes of the knee. This is most pronounced in the medial tibiofemoral joint space with joint space narrowing marginal osteophyte production. Large soft tissue defects the lateral aspect of the lower extremity with suspected subcutaneous emphysema. No radiopaque retained foreign body. IMPRESSION: No acute fracture dislocation. No periosteal reaction to suggest osteomyelitis by radiograph. Large soft tissue defects with suspected subcutaneous emphysema. No radiopaque retained foreign body. REPORT CORRECTION I have personally reviewed the images of this examination and edited the preliminary report. Interpreted by: Kellie Pagan Preliminary Report By: Shar Antoine Electronically signed By Kellie Pagan Dictated Date: 11/13/2023 9:22:00 PM Prelim Date: 11/13/2023 9:26:03 PM Sign Date: 11/13/2023 9:57:19 PM Ordering [facility] Progress note Author Regan Kelly [facility] November 03, 2023 6:19pm Note Date/Time November 03, 2023 6:1 9pm [facility] Medical Records Department [address] [place] [address] Progress Note - GI 11/03/23 1818 MR#: [id number] Acct: [id number] Name: JADON ALVAREZ Rep #:[id number] 2 : 1955 68 From: Regan Kelly DO PCP: Kellie Benites NP-C Status:ADM CASEY Location: ND3 [id number] Subjective Subjective Patient underwent an upper and lower endoscopy yesterday for GI bleed. He is doing very well. Hemoglobin seems stable. He does not have abdominal pain or cramping. He is tolerating regular diet. Objective Data Objective Data Vital Signs: Vital Signs Temp Pulse Resp BP Pulse Ox O2 Del Method O2 Flow Rate 98.6 F 55 L 18 130/82 H 95 Room Air 2 11/03/23 14:45 11/03/23 14:45 11/03/23 14:45 11/03/23 14:45 11/03/23 14:45 11/03/23 14:45 11/02/23 16:45 Oxygen Flow Rate (L/min) 2 Oxygen Delivery Method Room Air Weight: 352 lb 4.779 oz Body Mass Index (BMI) 45.2 Intake & Output: Intake and Output for Last 24 Hours 11/01/23 11/02/23 11/03/23 23:59 23:59 23:59 Intake Total 71 / 71 240 / 240 Output Total 850 / 850 450 / 450 Balance -850 / -850 -379 / -379 240 / 240 Lab / Micro Data 11/03/23 06:53 11/03/23 06:53 Labs: Laboratory Results - last 24 hr 11/02/23 22:01: POC Glucose 161 H 11/03/23 05:40: POC Glucose 104 11/03/23 06:53: Hgb 9.3 L, Hct 32.4 L, Sodium 137, Potassium 4.1, Chloride 99, Carbon Dioxide 36.0 H, Anion Gap 2 L, BUN 22 H, Creatinine 1.30, Estim Creat Clear Calc 87.11, Est GFR (MDRD) Af Amer 71, Est GFR (MDRD) Non-Af 58 L, BUN/Creatinine Ratio 16.9, Glucose 110 H, Calcium 9.3 11/03/23 10:26: POC Glucose 217 H 11/03/23 11:20: POC Glucose 206 H 11/03/23 16:34: POC Glucose 164 H Physical Exam Narrative alert, oriented x3 and no apparent distress Constitutional Narrative: Patient is morbidly obese General Appearance: cooperative, well kempt and well developed Orientation / Consciousness: awake, oriented to person, oriented to place and oriented to time HEENT normocephalic and moist oral mucous membranes Eyes PERRL, EOMs intact bilaterally and conjunctivae normal Neck supple, no JVD and thyroid normal General: trachea midline Resp normal respiratory effort, no retractions, no use of accessory muscles and clearto auscultation bilaterally Auscultation: Negative for rales, rhonchi or wheezes Cardio regular rate, regular rhythm, S1 normal heart sound, S2 normal heart sound, no murmurs, no rub and no gallops GI normal to inspection, nondistended, normoactive bowel sounds, soft to palpation,non-tender and non-distended Extremity Extremity Narrative: Generalized edema is noted over both lower legs worse on the right, there is redness noted with the edema on the right lower leg, there are 3 eschars noted over the lateral aspect of the right lower leg, no drainage is noted from these areas Skin Skin Narrative: There are 3 eschars noted over the lateral aspect of the right lower leg Neuro oriented x3, CN's II-XII intact bilaterally, no focal motor deficits and no sensory deficits noted Sensorium / Orientation: awake and alert Speech: speech normal Psych affect normal Assessment & Plan Assessment/Plan (1) Impaired mobility and ADLs: PLAN: Plan Patient is a 68-year-old male who presented [facility] ED on 10/28/2023 with failure to thrive. 1. Adult failure to thrive; Recent history of mechanical fall with RLE hematomaand mild head laceration; 2. Chronic RLE DVT ? Recent LE duplex ultrasound from outside hospital on 10/21 showed chronic DVT in right proximal femoral vein and right popliteal vein. His Eliquis on hold due to anemia and GI bleeding in the hospital. 3. Anemia and lower GI bleed ? Chronic normocytic anemia: Hemoglobin 8.7 on admit, baseline hemoglobin 8-9. Stable. ? He has been having multiple episodes of lower GI bleeding. He will need to undergo 2023-patient has started his prep. He has not had any bowel movements as of yet. He denies abdominal pain but still is having lower GI bleeding. Plan is for upper and lower endoscopy tomorrow. 11/03/2023- Findings from EGD: Findings: The examined esophagus was normal. A hiatal hernia was present. No gross lesions were noted in the entire examined stomach. One cratered duodenal ulcer with pigmented material was found in the duodenal bulb. The lesion was 6 mm in largest dimension. Coagulation for bleeding prevention using heater probe was successful. Estimated blood loss was minimal. Two non-bleeding linear duodenal ulcers with no stigmata of bleeding were found in the duodenal bulb and in the first portion of the duodenum. The largest lesion was 5 mm in largest dimension. Biopsies were taken with a cold forceps for histology. Verification of patient identification for the specimen was done. Estimated blood loss was minimal. A single 8 mm sessile polyp with bleeding was found in the duodenal bulb. The polyp was removed with a hot snare. Resection and retrieval were complete. Verification of patient identification for the specimen was done. Estimated blood loss was minimal. Impression: - Normal esophagus. - Hiatal hernia. - No gross lesions in the entire stomach. - Duodenal ulcer with pigmented material. Treated with a heater probe. - Non-bleeding duodenal ulcers with no stigmata of bleeding. Biopsied. Recommendation: - Return patient to [facility] for [facility] care. - Resume regular diet. - Continue present medications. - Await pathology results. - Repeat upper endoscopy in 4 months for surveillance. Findings from colonoscopy Findings: An anal fissure was found on perianal exam. Non-bleeding internal hemorrhoids were found during retroflexion. The hemorrhoids were mild, small and Grade I (internal hemorrhoids that do not prolapse). A 5 mm anal fissure was found in the anal canal. Coagulation for hemostasis using argon plasma at 0.3 liters/minute and 20 de luna was successful. Estimated blood loss was minimal. Multiple small-mouthed diverticula were found in the recto-sigmoid colon and sigmoid colon. Three sessile polyps were found in the sigmoid colon and ascending colon. The polyps were 1 to 2 mm in size. These polyps were removed with a hot snare. Resection and retrieval were complete. To prevent bleeding post-intervention, one hemostatic clip was successfully placed. Clip dietitian assistant: Shopzilla. There was no bleeding at the end of the procedure. A single (solitary) six mm ulcer was found at the hepatic flexure. Oozing was present. Stigmata of recent bleeding were present. Coagulation for hemostasis using heater probe was successful. Estimated blood loss was minimal. Impression: - Preparation of the colon was fair. - Anal fissure found on perianal exam. - Non-bleeding internal hemorrhoids. - Anal fissure. Treated with argon plasma coagulation (APC). - Diverticulosis in the recto-sigmoid colon and in the sigmoid colon. - Three 1 to 2 mm polyps in the sigmoid colon and in the ascending colon, removed with a hot snare. Resected and retrieved. Clip was placed. Clip dietitian assistant: Shopzilla. - A single (solitary) ulcer at the hepatic flexure. Treated with a heater probe. Recommendation: - Discharge patient to home. - Resume regular diet. - Continue present medications. - Await pathology results. - Repeat colonoscopy in 1 year for surveillance. Charges/Coding Visit Charges Inpatient E&M: 59059 [facility] Hosp 11/03/231818 <Electronically signed by Regan Kelly DO> Cosigner Signature (if applicable): CC: ~ Signed [facility] Work Phone: [phone]) 466-909404-24-2024 Discharge summary Author Louie Howard [facility] November 03, 2023 4:40pm Note Date/Time November 03, 2023 4:2 9pm [facility] Medical Records Department [address] [place] [address] Transfer to Extended Care MR#: [id number] Acct: [id number] Name: JADON ALVAREZ Rep #:[id number] : 1955 68 From: Louie Howard DO PCP: NIKKO Toscano Status:ADM CASEY Certification of patient admission REQUIRED AT TIME OF ADMISSION. I CERTIFY THAT POST-HOSPITAL ECF SERVICES ARE REQUIRED TO BE GIVEN ON AN IN-PATIENT BASIS BECAUSE OF THE ABOVE NAMED PATIENT'S NEED FOR GROUP HOME CARE ON A CONTINUING BASIS FOR THE CONDITION(S) FOR WHICH HE/SHE WAS RECEIVING IN-PATIENT HOSPITAL SERVICES PRIOR TO HIS/HER TRANSFER TO THE [facility]. 11/03/23 1640<Electronically signed by Louie Howard DO> Diet Diet Order/Speech Therapy: 11/03/23 14:25 Diet: Cardiac: Calorie-Controlled Food consistency:: Regular Liquid Consistency:: Regular/Thin Dietary Modifications:: Consistent Carbohydrate Sodium Restricted Is pt able to select menu?: No Diet Comments: pt wants nonselect menu - no coffee or cottage cheese on meal trays How many daily calories?: 1999 calorie Routine Orders/Code Status Routine Lab Work: BMP (on 11/05/23) and - (Fingerstick blood sugars AC nightly, Humalog subcu per sliding scale: 200-250: 5 units, 251-300: 8 units, 300-350: 12units) Code Status: DNRCC-A (no intubation) Wound(s) rt leg: Wound Type: cluster of nonhealing wound with black eschar Dressing Change: Adaptic Therapies Weight Bearing: Full weight bearing Physical Therapy: Eval and Treat Occupational Therapy: Eval and Treat Problem/Diagnosis (1) Impaired mobility and ADLs: Status: Acute Code(s): Z74.09 - Other reduced mobility; Z78.9 - Other specified health status Plan 1. Acute debility secondary to multiple medical problems and morbid obesity-PT and OT will continue to see the patient, he will need [facility] for [facility] services #2 bilateral lower extremity edema with lymphedematous changes of the skin- patient will remain on IV Lasix #3 right lower leg wounds-eschars present-wound care nurse is seeing the patient #4 paroxysmal atrial fibs and flutter-patient appears to be in sinus rhythm today on my examination, patient's Eliquis is being held due to concerns of GI bleeding #5 type 2 diabetes-patient's blood sugars will be monitored, sliding scale insulin will be used as needed #6 essential hypertension-patient will remain on his present medications, they will be adjusted as needed #7 iron deficiency anemia-possibly secondary to chronic gastrointestinal bleeding from hemorrhoids and fissures #8 Acute bright red rectal bleeding from rectal fissure, internal hemorrhoids, and colon ulceration Total clinical time spent by myself addressing the patient's medical issues, reviewing all of his data, and collaborating with the patient's care team: 35 minutes Allergies/Procedures Done in Hospital Allergies ibuprofen [From Nuprin] Allergy (Verified 10/28/23 13:13) Unknown Procedures: Colonoscopy Type of Care/Length of Stay Estimated LOS: Convalescent Care Less Than 30 days Type of Care Needed: Skilled Rehab Potential: Fair Prognosis: Fair Additional Orders/Day of Discharge H&P will serve as current which was dated: 10/28/23 Day of Discharge: 11/03/23 Dietary and Speech Recommendations Dietitian Recommendations/Changes: Will change diet to 2000 calorie/consistent carbohydrate; Cardiac/sodium-restricted---nonselect diet per pt request. Will continue Santhosh bid at [facility] to support skin healing. Fluid restriction as needed per physician. Discharge Plan Admission Admit Date/Time: 10/28/23 16:54 Primary Reason for Your Visit: Debility, lower extremity edema, lymphedema Attending Provider: Louie Howard Primary Care Provider: Kellie Benites USER EXPERIENCE ANALYST Consulting Providers: Louie Howard; Washington Ames Discharge Orders/Prescriptions Prescriptions: New insulin glargine-yfgn 100 unit/mL (3 mL) Insulin Pen 40 unit subcut DAILY Qty: 0 0RF acetaminophen 325 mg Tablet 650 mg PO Q4H PRN PRN (Reason: Fever, pain 1-04/20) Qty: 0 0RF albuterol sulfate 2.5 mg /3 mL (0.083 %) Solution For Nebulization 2.5 mg inhalation Q2H PRN PRN (Reason: Dyspnea, wheezing) Qty: 0 0RF budesonide 0.5 mg/2 mL Suspension For Nebulization 0.5 mg inhalation BID.RT Qty: 0 0RF Santhosh (with collagen) 7-7-1.5 gram Powder In Packet 1 packet PO BIDCM Qty: 0 0RF menthol-zinc oxide [Calmoseptine] 0.44-20.6 % Ointment 1 applic topical BID Qty: 0 0RF Protocol: *Topical Application Instructions APPLICATION INSTRUCTIONS: apply to affected region potassium chloride 20 mEq Tablet,Er Particles/Crystals 20 meq PO BIDCM Qty: 0 0RF nystatin [Nyamyc] 100,000 unit/gram Powder 1 applic topical TID Qty: 0 0RF Protocol: *Topical Application Instructions APPLICATION INSTRUCTIONS: to affected regions Continued carvedilol 25 MG tablet 25 mg PO BID aspirin 81 MG tablet,delayed release (DR/EC) 81 mg PO DAILY ascorbic acid (vitamin C) 250 MG tablet 250 mg PO DAILY atorvastatin 20 mg tablet 20 mg PO DAILY amlodipine 5 mg tablet 5 mg PO DAILY ferrous sulfate [Feosol] 325 mg (65 mg iron) tablet 325 mg PO DAILY gabapentin 300 mg capsule 300 mg PO TID melatonin 3 mg tablet 3 mg PO QHS metoprolol tartrate 25 mg tablet 12.5 mg PO BID polyethylene glycol 3350 [Miralax] 17 gram/dose powder 17 g PO BID Held Eliquis 5 mg tablet 5 mg PO BID Hold Instructions: Resume on 11/17/23. Discontinued doxycycline hyclate 100 mg capsule 100 mg PO BID oxycodone-acetaminophen 5-325 mg tablet 1 tab PO Q6H PRN (Reason: pain) bumetanide 1 mg tablet 0.5 mg PO BID budesonide-formoterol [Symbicort] 160-4.5 mcg/actuation HFA aerosol inhaler 2 puff inhalation DAILY diltiazem HCl 180 mg capsule,extended release 24hr 180 mg PO DAILY furosemide 40 mg tablet 40 mg PO DAILY insulin glargine 100 unit/mL (3 mL) insulin pen 75 unit subcut DAILY insulin lispro 100 unit/mL insulin pen See Rx Instructions subcut TID Patient Comments: DENISE BUCHANAN DOES NOT HAVE SLIDING SCALE DOSE ON MED LIST Rx Instructions: GIVE 0-5 UNITS subcutaneously three times a day; Mounjaro 5 mg/0.5 mL pen injector 5 mg subcut QWEEK Referrals / Follow Up: Kellie Benites USER EXPERIENCE ANALYST, USER EXPERIENCE ANALYST-C [Primary Care Provider] - Disposition Disposition (needs filled in before D/C Order can be placed): Long-Term Facility 11/03/23 1640 <Electronically signed by Louie Howard DO> Cosigner Signature (if applicable): CC: NIKKO Benites; Dr. Washington Ames DO; Dr. Louie Howard DO ~ [facility] Work Phone: [phone]) 780-244404-23-2024 Progress note Author Louie Howard [facility] November 02, 2023 6:39pm Note Date/Time November 02, 2023 6:3 9pm [facility] Medical Records Department [address] [place] [address] Progress Note - Hospitalist 11/02/23 1834 MR#: [id number] Acct: [id number] Name: JADON ALVAREZ Rep #:[id number] 1 : 1955 68 From: Louie Howard DO PCP: NIKKO Toscano Status:ADM CASEY Location: [place] [address] Reason for Visit Reason for Visit: Diagnoses Other reduced mobility (10/28/23) Other specified health status (10/28/23) Subjective Subjective Patient underwent colonoscopy today which revealed anal fissure and nonbleeding internal hemorrhoids. Diverticulosis was also noted in the rectosigmoid colon and in the sigmoid colon and there were 3 small polyps removed in the sigmoid colon. In addition, there was a solitary ulcer at the hepatic flexure, this wastreated with a heater probe. [facility], he will be reevaluated tomorrow morning for discharge there. Objective Data Objective Data Vital Signs: Vital Signs Temp Pulse Resp BP Pulse Ox O2 Del Method O2 Flow Rate 97.5 F L 60 18 121/72 H 93 Room Air 2 11/02/23 17:24 11/02/23 17:24 11/02/23 17:24 11/02/23 17:24 11/02/23 17:24 11/02/23 17:24 11/02/23 16:45 Oxygen Flow Rate (L/min) 2 Oxygen Delivery Method Room Air Weight: 159.8 kg Body Mass Index (BMI) 45.2 Intake & Output: Intake and Output for Last 24 Hours 10/31/23 11/01/23 11/02/23 23:59 23:59 23:59 Intake Total 1320 / 1320 Output Total 2049 850 / 850 450 / 450 Balance -730 / -730 -850 / -850 -450 / -450 Lab / Micro Data 11/02/23 06:13 11/02/23 06:13 Labs: Laboratory Results - last 24 hr 11/01/23 23:33: POC Glucose 132 H 11/02/23 06:13: WBC 5.1, RBC 3.59 L, Hgb 9.4 L, Hct 32.6 L, MCV 90.8, MCH 26.2 L, MCHC 28.8 L, RDW Std Deviation 60.9 H, RDW Coeff of Carlito 19.0 H, Plt Count 248,MPV 11.3, Immature Gran % (Auto) 0.400, Neut % (Auto) 64.2, Lymph % (Auto) 17.3 L, Stoddard % (Auto) 13.4 H, Eos % (Auto) 4.1, Baso % (Auto) 0.6, Absolute Neuts (auto) Not Reportable, Sodium 137, Potassium 3.7, Chloride 99, Carbon Dioxide 34.0 H, Anion Gap 4 L, BUN 23 H, Creatinine 1.16, Estim Creat Clear Calc 97.62, Est GFR (MDRD) Af Amer 80, Est GFR (MDRD) Non-Af 66, BUN/Creatinine Ratio 19.8, Glucose 94, Hemoglobin A1c 5.2, Calcium 8.5 11/02/23 11:22: POC Glucose 87 11/02/23 12:05: POC Glucose 116 H 11/02/23 17:27: POC Glucose 89 Physical Exam Narrative alert, oriented x3 and no apparent distress Constitutional Narrative: Patient is morbidly obese General Appearance: cooperative, well kempt and well developed Orientation / Consciousness: awake, oriented to person, oriented to place and oriented to time HEENT normocephalic and moist oral mucous membranes Eyes PERRL, EOMs intact bilaterally and conjunctivae normal Neck supple, no JVD and thyroid normal General: trachea midline Resp normal respiratory effort, no retractions, no use of accessory muscles and clearto auscultation bilaterally Auscultation: Negative for rales, rhonchi or wheezes Cardio regular rate, regular rhythm, S1 normal heart sound, S2 normal heart sound, no murmurs, no rub and no gallops GI normal to inspection, nondistended, normoactive bowel sounds, soft to palpation,non-tender and non-distended Extremity Extremity Narrative: Generalized edema is noted over both lower legs worse on the right, there is redness noted with the edema on the right lower leg, there are 3 eschars noted over the lateral aspect of the right lower leg, no drainage is noted from these areas Skin Skin Narrative: There are 3 eschars noted over the lateral aspect of the right lower leg Neuro oriented x3, CN's II-XII intact bilaterally, no focal motor deficits and no sensory deficits noted Sensorium / Orientation: awake and alert Speech: speech normal Psych affect normal Assessment & Plan Assessment/Plan (1) Impaired mobility and ADLs: PLAN: Plan 1. Acute debility secondary to multiple medical problems and morbid obesity-PT and OT will continue to see the patient, [facility] will [facility] #2 bilateral lower extremity edema with lymphedematous changes of the skin- patient will remain on IV Lasix #3 right lower leg wounds-eschars present-wound care nurse is seeing the patient #4 paroxysmal atrial fibs and flutter-patient appears to be in sinus rhythm today on my examination, patient's Eliquis is being held due to concerns of GI bleeding #5 type 2 diabetes-patient's blood sugars will be monitored, sliding scale insulin will be used as needed #6 essential hypertension-patient will remain on his present medications, they will be adjusted as needed #7 iron deficiency anemia-possibly secondary to chronic gastrointestinal bleeding from hemorrhoids and fissures #8 Acute bright red rectal bleeding from rectal fissure, internal hemorrhoids, and colon ulceration-H&H will be obtained in the morning Total clinical time spent by myself addressing the patient's medical issues, reviewing all of his data, and collaborating with the patient's care team: 35 minutes Charges/Coding Visit Charges Inpatient E&M: 37769 Subs Hosp L2 11/02/23 1839 <Electronically signed by Louie Howard DO> Cosigner Signature (if applicable): CC: ~ Signed [facility] Work Phone: 1(659) 727-718304-23-2024 Procedure [facility] 11-02-2023 Procedure [facility]04-23-2024 Procedure note [facility]04-23-2024 Procedure [facility] 11-01-2023 Progress note Author Regan Friend [facility] November 01, 2023 5:13pm Note Date/Time November 01, 2023 5:1 3pm [facility] Medical Records Department [address] [place] [address] Progress Note - GI 11/01/23 1711 MR#: [id number] Acct: [id number] Name: JADON ALVAREZ Rep #:[id number] : 1955 68 From: Regan Friend DO PCP: Kellie Benites, USER EXPERIENCE ANALYST-C Status:ADM CASEY Location: MS3 AM034-6 Subjective Subjective Patient has been on a clear liquid diet and has been still having some lower GI bleeding. He says his legs are still very swollen. Objective Data Objective Data Vital Signs: Vital Signs Temp Pulse Resp BP Pulse Ox O2 Del Method O2 Flow Rate 97.4 F L 55 L 20 H 143/69 H 96 Room Air 2 11/01/23 14:31 11/01/23 14:31 11/01/23 14:31 11/01/23 14:31 11/01/23 14:31 11/01/23 14:41 10/31/23 03:00 Oxygen Flow Rate (L/min) 2 Oxygen Delivery Method Room Air Weight: 352 lb 15.361 oz Body Mass Index (BMI) 45.3 Intake & Output: Intake and Output for Last 24 Hours 10/30/23 10/31/23 11/01/23 23:59 23:59 23:59 Intake Total 1290 / 1290 1320 / 1320 Output Total 500 / 500 0 / 2050 850 / 850 Balance 790 / 790 -730 / -730 -850 / -850 Lab / Micro Data 10/31/23 18:17 11/01/23 06:19 Labs: Laboratory Results - last 24 hr 10/31/23 18:17: Hgb 9.1 L, Hct 30.9 L 10/31/23 23:44: POC Glucose 106 11/01/23 06:14: POC Glucose 93 11/01/23 06:19: Sodium 138, Potassium 4.0, Chloride 102, Carbon Dioxide 33.0 H, Anion Gap 3 L, BUN 28 H, Creatinine 1.25, Estim Creat Clear Calc 90.69, Est GFR (MDRD) Af Amer 74, Est GFR (MDRD) Non-Af 61, BUN/Creatinine Ratio 22.4 H, Glucose 91, Calcium 9.0 11/01/23 09:47: POC Glucose 144 H 11/01/23 12:33: POC Glucose 208 H Physical Exam Narrative alert, oriented x3 and no apparent distress Constitutional Narrative: Patient is morbidly obese General Appearance: cooperative, well kempt and well developed Orientation / Consciousness: awake, oriented to person, oriented to place and oriented to time HEENT normocephalic and moist oral mucous membranes Eyes PERRL, EOMs intact bilaterally and conjunctivae normal Neck supple, no JVD and thyroid normal General: trachea midline Resp normal respiratory effort, no retractions, no use of accessory muscles and clearto auscultation bilaterally Auscultation: Negative for rales, rhonchi or wheezes Cardio regular rate, regular rhythm, S1 normal heart sound, S2 normal heart sound, no murmurs, no rub and no gallops GI normal to inspection, nondistended, normoactive bowel sounds, soft to palpation,non-tender and non-distended Extremity Extremity Narrative: Generalized edema is noted over both lower legs worse on the right, there is redness noted with the edema on the right lower leg, there are 3 eschars noted over the lateral aspect of the right lower leg, no drainage is noted from these areas Skin Skin Narrative: There are 3 eschars noted over the lateral aspect of the right lower leg Neuro oriented x3, CN's II-XII intact bilaterally, no focal motor deficits and no sensory deficits noted Sensorium / Orientation: awake and alert Speech: speech normal Psych affect normal Assessment & Plan Assessment/Plan (1) Impaired mobility and ADLs: PLAN: Plan Patient is a 68-year-old male who presented [facility] ED on 10/28/2023 with failure to thrive. 1. Adult failure to thrive; Recent history of mechanical fall with RLE hematomaand mild head laceration; 2. Chronic RLE DVT ? Recent LE duplex ultrasound from outside hospital on 10/21 showed chronic DVT in right proximal femoral vein and right popliteal vein. His Eliquis on hold due to anemia and GI bleeding in the hospital. 3. Anemia and lower GI bleed ? Chronic normocytic anemia: Hemoglobin 8.7 on admit, baseline hemoglobin 8-9. Stable. ? He has been having multiple episodes of lower GI bleeding. He will need to undergo 2023-patient has started his prep. He has not had any bowel movements as of yet. He denies abdominal pain but still is having lower GI bleeding. Plan is for upper and lower endoscopy tomorrow. Charges/Coding Visit Charges Inpatient E&M: 34683 Subs Hosp L2 11/01/23 2262 <Electronically signed by Regan Friend DO> Cosigner Signature (if applicable): CC: ~ Signed [facility] Work Phone: 1(877) 594-692404-22-2024 Progress note Author Louie Howard [facility] November 01, 2023 3:57pm Note Date/Time November 01, 2023 3:5 1pm [facility] Medical Records Department [address] [place] [address] Progress Note - Hospitalist 11/01/23 1531 MR#: [id number] Acct: [id number] Name: JADON ALVAREZ Rep #:[id number] : 1955 68 From: Louie Howard DO PCP: ASHVIN ToscanoC Status:ADM CASEY Location: [place] [address] Reason for Visit Reason for Visit: Diagnoses Other reduced mobility (10/28/23) Other specified health status (10/28/23) Subjective Subjective Patient was seen and examined today, he is complaining to nursing that his evening dose of Lasix is interfering with his sleep, I have decided to change itto a twice daily dosage at 3:30 PM and 8 AM daily. According to charting, patient is currently on room air. Objective Data Objective Data Vital Signs: Vital Signs Temp Pulse Resp BP Pulse Ox O2 Del Method O2 Flow Rate 97.4 F L 55 L 20 H 143/69 H 96 Room Air 2 11/01/23 14:31 11/01/23 14:31 11/01/23 14:31 11/01/23 14:31 11/01/23 14:31 11/01/23 14:41 10/31/23 03:00 Oxygen Flow Rate (L/min) 2 Oxygen Delivery Method Room Air Weight: 160.1 kg Body Mass Index (BMI) 45.3 Intake & Output: Intake and Output for Last 24 Hours 10/30/23 10/31/23 11/01/23 23:59 23:59 23:59 Intake Total 1290 / 1290 1320 / 1320 Output Total 500 / 500 2049 / 2049 850 / 850 Balance 790 / 790 -730 / -730 -850 / -850 Lab / Micro Data 10/31/23 18:17 11/01/23 06:19 Labs: Laboratory Results - last 24 hr 10/31/23 11:27: POC Glucose 133 H 10/31/23 16:00: POC Glucose 161 H 10/31/23 18:17: Hgb 9.1 L, Hct 30.9 L 10/31/23 23:44: POC Glucose 106 11/01/23 06:14: POC Glucose 93 11/01/23 06:19: Sodium 138, Potassium 4.0, Chloride 102, Carbon Dioxide 33.0 H, Anion Gap 3 L, BUN 28 H, Creatinine 1.25, Estim Creat Clear Calc 90.69, Est GFR (MDRD) Af Amer 74, Est GFR (MDRD) Non-Af 61, BUN/Creatinine Ratio 22.4 H, Glucose 91, Calcium 9.0 11/01/23 09:47: POC Glucose 144 H 11/01/23 12:33: POC Glucose 208 H Physical Exam Narrative alert, oriented x3 and no apparent distress Constitutional Narrative: Patient is morbidly obese General Appearance: cooperative, well kempt and well developed Orientation / Consciousness: awake, oriented to person, oriented to place and oriented to time HEENT normocephalic and moist oral mucous membranes Eyes PERRL, EOMs intact bilaterally and conjunctivae normal Neck supple, no JVD and thyroid normal General: trachea midline Resp normal respiratory effort, no retractions, no use of accessory muscles and clearto auscultation bilaterally Auscultation: Negative for rales, rhonchi or wheezes Cardio regular rate, regular rhythm, S1 normal heart sound, S2 normal heart sound, no murmurs, no rub and no gallops GI normal to inspection, nondistended, normoactive bowel sounds, soft to palpation,non-tender and non-distended Extremity Extremity Narrative: Generalized edema is noted over both lower legs worse on the right, there is redness noted with the edema on the right lower leg, there are 3 eschars noted over the lateral aspect of the right lower leg, no drainage is noted from these areas Skin Skin Narrative: There are 3 eschars noted over the lateral aspect of the right lower leg Neuro oriented x3, CN's II-XII intact bilaterally, no focal motor deficits and no sensory deficits noted Sensorium / Orientation: awake and alert Speech: speech normal Psych affect normal Assessment & Plan Assessment/Plan (1) Impaired mobility and ADLs: PLAN: Plan 1. Acute debility secondary to multiple medical problems and morbid obesity-PT and OT will continue to see the patient, he will need [facility] #2 bilateral lower extremity edema with lymphedematous changes of the skin- patient will remain on IV Lasix-I have adjusted the dose to twice a day #3 right lower leg wounds-eschars present-wound care nurse is seeing the patient #4 paroxysmal atrial fibs and flutter-patient appears to be in sinus rhythm today on my examination, patient's Eliquis is being held due to concerns of GI bleeding #5 type 2 diabetes-patient's blood sugars will be monitored, sliding scale insulin will be used as needed #6 essential hypertension-patient will remain on his present medications, they will be adjusted as needed #7 iron deficiency anemia-etiology unclear, hemoglobin appears to be stable #8 hematochezia-patient will undergo a colonoscopy tomorrow, gastroenterology saw him yesterday Total clinical time spent by myself addressing the patient's medical issues, reviewing all of his data, and collaborating with the patient's care team: 35 minutes Charges/Coding Visit Charges Inpatient E&M: 71224 Subs Hosp L2 11/01/23 1557 <Electronically signed by Louie Howard DO> Cosigner Signature (if applicable): CC: ~ Signed [facility] Work Phone: 1(811) 650-850704-21-2024 Consult note Author Regan Friend [facility] October 31, 2023 5:22pm Note Date/Time October 31, 2023 5:1 8pm [facility] Medical Records Department [address] [place] [id number] Consultation - GI 10/31/23 1718 MR#: [id number] Acct: [id number] Name: JADON ALVAREZ Rep #:[id number] : 1955 68 From: Regan Kelly DO PCP: NIKKO Toscano Status:ADM CASEY Location: [place] [address] HPI Consult Data Date of Consult: 10/31/23 HPI Narrative Reason for Consultation: Anemia and GI bleed HPI Narrative: JADON ALVAREZ, is a 68 M who presents to the ED because he cannot care for himself at home. He states on the way here he was emotional about having to come back to the hospital and he had 3 jolts of chest pain that have not returned and he had no other associated symptoms. He has a past medical history of Hx VTE, HF unclear type, Valvular Heart Diseases/p AV replacement, PAF/Flutter, Morbid Obesity, Chronic anemia, CKD stage II based on current GFR trending, HTN, HLD, Diabetes mellitus type II, BL LE Chronic lymphedema/PVD, PAWEL He also has a history of leaving earlier than recommended from [facility] rehab facility the day prior with plan transition to home PT and OT with historyof 10/03/2019 for evaluation in the ED with mechanical fall with facial laceration and right lower extremity hematoma transferred to [facility] for evaluation of the right lower extremity with unclear exact intervention but strong recommendation for Brittany wrap's and eventual transition to rehab given inability to take care of himself but unfortunately upon his return to home he realized he was unable to care for himself prompting transition to the ED for transition back to rehab. CBC with WBC 5.6, hemoglobin 8.7, MCV 91.2, platelet 276 with lymphopenia, BMP with chloride 108, carbon oxide 34, BUN/creatinine 21/1.19, GFR 65, glucose 139,troponin 21, chest x-ray with no acute cardiopulmonary findings. I was asked to see him due to ongoing lower GI bleeding in the setting of anemia. [facility] Medical History Atrial fibrillation/flutter Benign essential HTN Chronic acquired lymphedema Chronic anemia CKD (chronic kidney disease), stage II DM2 (diabetes mellitus, type 2) Former tobacco use History of DVT (deep vein thrombosis) Morbid obesity Sleep apnea Valvular heart disease Venous insufficiency (chronic) (peripheral) Home Medications ascorbic acid (vitamin C) 250 mg tablet 250 mg PO DAILY 03/17/19 [History Last Taken Unknown] aspirin 81 mg tablet,delayed release 81 mg PO DAILY 03/17/19 [History Last Taken Unknown] carvedilol 25 mg tablet 25 mg PO BID 03/17/19 [History Last Taken Unknown] amlodipine 5 mg tablet 5 mg PO DAILY 10/28/23 [History Last Taken Unknown] apixaban 5 mg tablet (Eliquis) 5 mg PO BID 10/28/23 [History Last Taken Unknown] atorvastatin 20 mg tablet 20 mg PO DAILY 10/28/23 [History Last Taken Unknown] budesonide-formoterol HFA 160 mcg-4.5 mcg/actuation aerosol inhaler (Symbicort) 2 puff inhalation DAILY 10/28/23 [History Last Taken Unknown] bumetanide 1 mg tablet 0.5 mg PO BID 10/28/23 [History Last Taken Unknown] diltiazem HCl 180 mg capsule,extended release 24 hr 180 mg PO DAILY 10/28/23 [History Last Taken Unknown] doxycycline hyclate 100 mg capsule 100 mg PO BID 10/28/23 [History Last Taken Unknown] ferrous sulfate 325 mg (65 mg iron) tablet (Feosol) 325 mg PO DAILY 10/28/23 [History Last Taken Unknown] furosemide 40 mg tablet 40 mg PO DAILY 10/28/23 [History Last Taken Unknown] gabapentin 300 mg capsule 300 mg PO TID 10/28/23 [History Last Taken Unknown] insulin glargine 100 unit/mL (3 mL) subcutaneous pen 75 unit subcut DAILY 10/28/23 [History Last Taken Unknown] insulin lispro 100 unit/mL subcutaneous pen See Rx Instructions subcut TID 10/28/23 [History Last Taken Unknown] melatonin 3 mg tablet 3 mg PO QHS 10/28/23 [History Last Taken Unknown] metoprolol tartrate 25 mg tablet 12.5 mg PO BID 10/28/23 [History Last Taken Unknown] oxycodone-acetaminophen 5 mg-325 mg tablet 1 tab PO Q6H PRN pain 10/28/23 [History Last Taken Unknown] polyethylene glycol 3350 17 gram/dose oral powder (Miralax) 17 g PO BID 10/28/23[History Last Taken Unknown] tirzepatide 5 mg/0.5 mL subcutaneous pen injector (Mounjaro) 5 mg subcut QWEEK 10/28/23 [History Last Taken Unknown] Allergy/AdvReac Type Severity Reaction Status Date / Time ibuprofen [From Nuprin] Allergy Unknown Verified 10/28/23 13:13 Family History Mother No problems noted. Father Cirrhosis of liver Alcoholism Surgical History History of bladder surgery History of right inguinal hernia repair History of tonsillectomy and adenoidectomy S/P AVR (aortic valve replacement) Social History household members: children Smoking Status: Former smoker how long ago did patient quit smoking: Quit ~ 20 yrs prior, smoked age 15 untilquit ~ 2 ppd. alcohol intake: never substance use type: does not use ROS ROS Narrative Admission Review of Systems: CONSTITUTIONAL: No weight loss, fever, chills, + weakness or fatigue. HEENT: Eyes: No visual loss, blurred vision, double vision or yellow sclerae. Ears, Nose, Throat: No hearing loss, sneezing, congestion, runny nose or sore throat. SKIN: No rash or itching, lesions, wounds except for significant bilateral lowerextremity venous stasis skin disease, stasis blisters, status post recent fall right lower extremity with hematoma resolving, staged ecchymoses. CARDIOVASCULAR: No chest pain, chest pressure or chest discomfort, palpitations,edema, orthopnea, syncopal events. RESPIRATORY: No shortness of breath, cough or sputum, wheezing, hemoptysis. GASTROINTESTINAL: No anorexia, nausea, vomiting or diarrhea, abdominal pain, melena, BRBPR. GENITOURINARY: No dysuria, frequency, urgency or retention. NEUROLOGICAL: No headache, dizziness, syncope, paralysis, ataxia, numbness or tingling in the extremities, focal weakness, change in bowel or bladder control,seizure. MUSCULOSKELETAL: + muscle, back pain, joint pain or stiffness. HEMATOLOGIC: + Chronic anemia, easy bleeding/bruising. LYMPHATICS: No enlarged nodes. No history of splenectomy. PSYCHIATRIC: No history of depression or anxiety. ENDOCRINOLOGIC: No reports of sweating, cold or heat intolerance. No polyuria orpolydipsia. ALLERGIES: + History of allergic rhinitis. Physical Exam Narrative alert, oriented x3 and no apparent distress Constitutional Narrative: Patient is morbidly obese General Appearance: cooperative, well kempt and well developed Orientation / Consciousness: awake, oriented to person, oriented to place and oriented to time HEENT normocephalic and moist oral mucous membranes Eyes PERRL, EOMs intact bilaterally and conjunctivae normal Neck supple, no JVD and thyroid normal General: trachea midline Resp normal respiratory effort, no retractions, no use of accessory muscles and clearto auscultation bilaterally Auscultation: Negative for rales, rhonchi or wheezes Cardio regular rate, regular rhythm, S1 normal heart sound, S2 normal heart sound, no murmurs, no rub and no gallops GI normal to inspection, nondistended, normoactive bowel sounds, soft to palpation,non-tender and non-distended Extremity Extremity Narrative: Generalized edema is noted over both lower legs worse on the right, there is redness noted with the edema on the right lower leg, there are 3 eschars noted over the lateral aspect of the right lower leg, no drainage is noted from these areas Skin Skin Narrative: There are 3 eschars noted over the lateral aspect of the right lower leg Neuro oriented x3, CN's II-XII intact bilaterally, no focal motor deficits and no sensory deficits noted Sensorium / Orientation: awake and alert Speech: speech normal Psych affect normal Lab / Micro Data 10/29/23 07:18 10/31/23 07:51 Labs: Laboratory Results - last 24 hr 10/30/23 16:54: POC Glucose 124 H 10/30/23 21:25: POC Glucose 130 H 10/31/23 07:51: Sodium 140, Potassium 4.2, Chloride 106, Carbon Dioxide 33.0 H, Anion Gap 1 L, BUN 28 H, Creatinine 1.20, Estim Creat Clear Calc 95.47, Est GFR (MDRD) Af Amer 77, Est GFR (MDRD) Non-Af 64, BUN/Creatinine Ratio 23.3 H, Glucose 93, Calcium 8.6 10/31/23 07:54: POC Glucose 92 10/31/23 11:27: POC Glucose 133 H 10/31/23 16:00: POC Glucose 161 H Assessment & Plan Assessment/Plan (1) Impaired mobility and ADLs: PLAN: Plan Patient is a 68-year-old male who presented [facility] ED on 10/28/2023 with failure to thrive. 1. Adult failure to thrive; Recent history of mechanical fall with RLE hematomaand mild head laceration; 2. Chronic RLE DVT ? Recent LE duplex ultrasound from outside hospital on 10/21 showed chronic DVT in right proximal femoral vein and right popliteal vein. His Eliquis on hold due to anemia and GI bleeding in the hospital. 3. Anemia and lower GI bleed ? Chronic normocytic anemia: Hemoglobin 8.7 on admit, baseline hemoglobin 8-9. Stable. ? He has been having multiple episodes of lower GI bleeding. He will need to undergo Charges/Coding Visit Charges Inpatient E&M: 55236 Init Hosp L3 10/31/23 1722 <Electronically signed by Regan Friend > Cosigner Signature (if applicable): CC: NIKKO Benites~ Signed [facility] Work Phone: 1(369) 161-412504-21-2024 Progress note Author Louie Howard [facility] October 31, 2023 12:13pm Note Date/Time October 31, 2023 12: 13pm [facility] Medical Records Department [address] [place] [address] Progress Note - Hospitalist 10/31/23 1208 MR#: [id number] Acct: [id number] Name: JADON ALVAREZ Rep #:[id number] : 1955 68 From: Louie Howard DO PCP: NIKKO Toscano Status:ADM CASEY Location: [address] Reason for Visit Reason for Visit: Diagnoses Other reduced mobility (10/28/23) Other specified health status (10/28/23) Subjective Subjective Patient was seen and examined today, BUN was slightly elevated today again, potassium was normal. I elected to give the patient 1 dose of Zaroxolyn today, he remains on IV Lasix currently in an attempt to diurese and reduce fluid in the legs. Objective Data Objective Data Vital Signs: Vital Signs Temp Pulse Resp BP Pulse Ox O2 Del Method O2 Flow Rate 97.7 F L 57 L 18 124/62 H 95 Room Air 2 10/31/23 07:49 10/31/23 07:49 10/31/23 07:49 10/31/23 07:49 10/31/23 07:49 10/31/23 07:49 10/31/23 03:00 Oxygen Flow Rate (L/min) 2 Oxygen Delivery Method Room Air Weight: 163.095 kg Body Mass Index (BMI) 46.1 Intake & Output: Intake and Output for Last 24 Hours 10/29/23 10/30/23 10/31/23 23:59 23:59 23:59 Intake Total 200 / 500 1290 / 1290 Output Total 2000 / 2000 500 / 500 550 / 550 Balance -1800 / -1500 790 / 790 -550 / -550 Lab / Micro Data 10/29/23 07:18 10/31/23 07:51 Labs: Laboratory Results - last 24 hr 10/30/23 12:00: POC Glucose 147 H 10/30/23 16:54: POC Glucose 124 H 10/30/23 21:25: POC Glucose 130 H 10/31/23 07:51: Sodium 140, Potassium 4.2, Chloride 106, Carbon Dioxide 33.0 H, Anion Gap 1 L, BUN 28 H, Creatinine 1.20, Estim Creat Clear Calc 95.47, Est GFR (MDRD) Af Amer 77, Est GFR (MDRD) Non-Af 64, BUN/Creatinine Ratio 23.3 H, Glucose 93, Calcium 8.6 10/31/23 07:54: POC Glucose 92 Physical Exam Narrative alert, oriented x3 and no apparent distress Constitutional Narrative: Patient is morbidly obese General Appearance: cooperative, well kempt and well developed Orientation / Consciousness: awake, oriented to person, oriented to place and oriented to time HEENT normocephalic and moist oral mucous membranes Eyes PERRL, EOMs intact bilaterally and conjunctivae normal Neck supple, no JVD and thyroid normal General: trachea midline Resp normal respiratory effort, no retractions, no use of accessory muscles and clearto auscultation bilaterally Auscultation: Negative for rales, rhonchi or wheezes Cardio regular rate, regular rhythm, S1 normal heart sound, S2 normal heart sound, no murmurs, no rub and no gallops GI normal to inspection, nondistended, normoactive bowel sounds, soft to palpation,non-tender and non-distended Extremity Extremity Narrative: Generalized edema is noted over both lower legs worse on the right, there is redness noted with the edema on the right lower leg, there are 3 eschars noted over the lateral aspect of the right lower leg, no drainage is noted from these areas Skin Skin Narrative: There are 3 eschars noted over the lateral aspect of the right lower leg Neuro oriented x3, CN's II-XII intact bilaterally, no focal motor deficits and no sensory deficits noted Sensorium / Orientation: awake and alert Speech: speech normal Psych affect normal Assessment & Plan Assessment/Plan (1) Impaired mobility and ADLs: PLAN: Plan 1. Acute debility secondary to multiple medical problems and morbid obesity-PT and OT will continue to see the patient, he will need [facility] #2 bilateral lower extremity edema with lymphedematous changes of the skin- patient will remain on IV Lasix and again I will give him a dose of oral Zaroxolyn today #3 right lower leg wounds-eschars present-wound care nurse is seeing the patient #4 paroxysmal atrial fibs and flutter-patient appears to be in sinus rhythm today on my examination, patient is on Eliquis and rate limiting medications #5 type 2 diabetes-patient's blood sugars will be monitored, sliding scale insulin will be used as needed #6 essential hypertension-patient will remain on his present medications, they will be adjusted as needed #7 iron deficiency anemia-etiology unclear, I will repeat his CBC tomorrow, I will give him an infusion of Venofer Total clinical time spent by myself addressing the patient's medical issues, reviewing all of his data, and collaborating with the patient's care team: 35 minutes Charges/Coding Visit Charges Inpatient E&M: 66875 Subs Hosp L2 10/31/23 1213 <Electronically signed by Louie Howard DO> Cosigner Signature (if applicable): CC: ~ Signed [facility] Work Phone: 1(453) 790-436004-20-2024 Progress note Author Louie [facility] October 30, 2023 5:24pm Note Date/Time October 30, 2023 5:2 3pm [facility] Medical Records Department [address] [place] [address] Progress Note - Hospitalist 10/30/23 1712 MR#: [id number] Acct: [id number] Name: JADON ALVAREZ Rep #:[id number] : 1955 68 From: Louie Howard DO PCP: NIKKO Toscano Status:ADM CASEY [facility] Reason for Visit Reason for Visit: Diagnoses Other reduced mobility (10/28/23) Other specified health status (10/28/23) Subjective Subjective Patient was seen and examined today, he still has quite a bit of edema in his lower legs-worse on the right with more redness in the right lower leg. Patientdoes have lymphedematous changes over both lower legs, there are 3 eschars notedon the lateral aspect of the right leg-these areas are not draining any fluid. Objective Data Objective Data Vital Signs: Vital Signs Temp Pulse Resp BP Pulse Ox O2 Del Method O2 Flow Rate 97.6 F L 54 L 16 138/67 H 97 Room Air 2 10/30/23 15:08 10/30/23 15:08 10/30/23 15:08 10/30/23 15:08 10/30/23 15:08 10/30/23 15:08 10/30/23 00:41 Oxygen Flow Rate (L/min) 2 Oxygen Delivery Method Room Air Weight: 164.5 kg Body Mass Index (BMI) 46.5 Intake & Output: Intake and Output for Last 24 Hours 10/28/23 10/29/23 10/30/23 23:59 23:59 23:59 Intake Total 300 / 300 200 / 500 840 / 840 Output Total 2000 / 2000 250 / 250 Balance 300 / 300 -1800 / -1500 590 / 590 Lab / Micro Data 10/29/23 07:18 10/29/23 07:18 Labs: Laboratory Results - last 24 hr 10/29/23 17:02: POC Glucose 126 H 10/29/23 21:15: POC Glucose 144 H 10/30/23 05:40: POC Glucose 107 H 10/30/23 12:00: POC Glucose 147 H Physical Exam Const alert, oriented x3 and no apparent distress Constitutional Narrative: Patient is morbidly obese General Appearance: cooperative, well kempt and well developed Orientation / Consciousness: awake, oriented to person, oriented to place and oriented to time HEENT normocephalic and moist oral mucous membranes Eyes PERRL, EOMs intact bilaterally and conjunctivae normal Neck supple, no JVD and thyroid normal General: trachea midline Resp normal respiratory effort, no retractions, no use of accessory muscles and clearto auscultation bilaterally Auscultation: Negative for rales, rhonchi or wheezes Cardio regular rate, regular rhythm, S1 normal heart sound, S2 normal heart sound, no murmurs, no rub and no gallops GI normal to inspection, nondistended, normoactive bowel sounds, soft to palpation,non-tender and non-distended Extremity Extremity Narrative: Generalized edema is noted over both lower legs worse on the right, there is redness noted with the edema on the right lower leg, there are 3 eschars noted over the lateral aspect of the right lower leg, no drainage is noted from these areas Skin Skin Narrative: There are 3 eschars noted over the lateral aspect of the right lower leg Neuro oriented x3, CN's II-XII intact bilaterally, no focal motor deficits and no sensory deficits noted Sensorium / Orientation: awake and alert Speech: speech normal Psych affect normal Assessment & Plan Assessment/Plan (1) Impaired mobility and ADLs: PLAN: Plan 1. Acute debility secondary to multiple medical problems and morbid obesity-PT and OT will continue to see the patient, he will need [facility] placement [facility] services #2 bilateral lower extremity edema with lymphedematous changes of the skin-I have decided to place the patient on IV Lasix in an attempt to reduce the edema,patient states that nursing in the past has been unable to insert a Martines catheter due to damage to his prostate from hernia surgery in the past, patient states he will be able to get up to a bedside commode to urinate. #3 right lower leg wounds-eschars present-wound care nurse is seeing the patient #4 paroxysmal atrial fibs and flutter-patient appears to be in sinus rhythm today on my examination, patient is on Eliquis and rate limiting medications #5 type 2 diabetes-patient's blood sugars will be monitored, sliding scale insulin will be used as needed #6 essential hypertension-patient will remain on his present medications, they will be adjusted as needed Total clinical time spent by myself addressing the patient's medical issues, reviewing all of his data, and collaborating with the patient's care team: 50 minutes Charges/Coding Visit Charges Inpatient E&M: 39174 Subs Hosp L3 10/30/23 2853 <Electronically signed by Louie Howard DO> Cosigner Signature (if applicable): CC: ~ Signed [facility] Work Phone: 1(723) 769-720404-19-2024 Progress note Author Washington Ames [facility] October 29, 2023 1:25pm Note Date/Time October 29, 2023 11: 45am [facility] Medical Records Department [address] [place] [address] Progress Note - Hospitalist 10/29/23 1145 MR#: [id number] Acct: [id number] Name: JADON ALVAREZ Rep #:[id number] : 1955 68 From: Washington lin DO PCP: Kellie Benites USER EXPERIENCE ANALYST-C Status:ADM CASEY Location: [facility] KA236-8 Reason for Visit Reason for Visit: Diagnoses Other reduced mobility (10/28/23) Other specified health status (10/28/23) Subjective Subjective No acute events overnight. Patient seen at bedside this morning. Sitting up comfortably in bedside chair, conversing normally, in no acute distress. StatedPT and OT had gotten from the bed to the bedside chair this morning without significant issue. He does have both lower legs wrapped with Brittany wrap and states that they remain fairly sore, painful and swollen, similar to previous days. He was eating his breakfast when I saw him, tolerating diet well. Had noother acute concerns Objective Data Objective Data Vital Signs: Vital Signs Temp Pulse Resp BP Pulse Ox O2 Del Method O2 Flow Rate 97.6 F L 59 L 18 140/72 H 96 Room Air 2 10/29/23 11:00 10/29/23 11:00 10/29/23 11:00 10/29/23 11:00 10/29/23 11:00 10/29/23 11:00 10/28/23 15:00 Oxygen Flow Rate (L/min) 2 Oxygen Delivery Method Room Air Weight: 168.8 kg Body Mass Index (BMI) 47.7 Intake & Output: Intake and Output for Last 24 Hours 10/27/23 10/28/23 10/29/23 23:59 23:59 23:59 Intake Total 300 / 300 200 / 200 Output Total 1600 / 1600 Balance 300 / 300 -1400 / -1400 Lab / Micro Data 10/29/23 07:18 10/29/23 07:18 Labs: Laboratory Results - last 24 hr 10/28/23 13:20: WBC 5.6, RBC 3.30 L, Hgb 8.7 L, Hct 30.1 L, MCV 91.2, MCH 26.4 L, MCHC 28.9 L, RDW Std Deviation 60.4 H, RDW Coeff of Carlito 18.6 H, Plt Count 276,MPV 10.6, Immature Gran % (Auto) 0.400, Neut % (Auto) 74.7 H, Lymph % (Auto) 13.4 L, Stoddard % (Auto) 9.3, Eos % (Auto) 1.8, Baso % (Auto) 0.4, Absolute Neuts (auto) 4.2, Absolute Lymphs (auto) 0.75 L, Nucleated RBC % 0, Sodium 141, Potassium 4.7, Chloride 108 H, Carbon Dioxide 34.0 H, Anion Gap -1 L, BUN 21 H, Creatinine 1.19, Estim Creat Clear Calc 98.18, Est GFR (MDRD) Af Amer 78, Est GFR (MDRD) Non-Af 65, BUN/Creatinine Ratio 17.6, Glucose 139 H, Calcium 8.8, Troponin I High Sens 21 10/28/23 21:34: POC Glucose 103 10/29/23 06:03: POC Glucose 112 H 10/29/23 07:18: WBC 5.8, RBC 3.23 L, Hgb 8.4 L, Hct 29.5 L, MCV 91.3, MCH 26.0 L, MCHC 28.5 L, RDW Std Deviation 60.5 H, RDW Coeff of Carlito 18.6 H, Plt Count 263,MPV 10.7, Immature Gran % (Auto) 0.500, Neut % (Auto) 68.6, Lymph % (Auto) 16.6 L, Stoddard % (Auto) 10.7 H, Eos % (Auto) 3.3, Baso % (Auto) 0.3, Absolute Neuts (auto) 4.0, Absolute Lymphs (auto) 0.96, Nucleated RBC % 0, Sodium 143, Potassium 4.1, Chloride 107, Carbon Dioxide 30.0, Anion Gap 6, BUN 20 H, Creatinine 1.21, Estim Creat Clear Calc 96.56, Est GFR (MDRD) Af Amer 77, Est GFR (MDRD) Non-Af 63, BUN/Creatinine Ratio 16.5, Glucose 113 H, Calcium 8.7, Iron 33 L, TIBC 234 L, Iron Saturation 14.1 L, Ferritin 139, Total Bilirubin 0.70, AST 23, ALT 24, Alkaline Phosphatase 74, Total Protein 6.3 L, Albumin 2.5 L, Globulin 3.8, Albumin/Globulin Ratio 0.7 L, Vitamin B12 340, Folate 18.00 10/29/23 11:11: POC Glucose 141 H Radiography Diagnostic Testing: Radiology Impression Chest X-Ray 10/28/23 13:45 IMPRESSION: No acute abnormality is seen. Electronically Signed: Jesse Stewart MD at 14:09 EDT , Physical Exam Const alert, oriented x3 and no apparent distress Constitutional Narrative: Morbidly obese, otherwise sitting up comfortably in bedside chair, conversing normally, in no acute distress. General Appearance: cooperative and comfortable HEENT normocephalic, head/scalp atraumatic, hearing grossly normal bilaterally, nasal mucous membranes and turbinates normal and moist oral mucous membranes Eyes PERRL, EOMs intact bilaterally and conjunctivae normal Neck full ROM Chest inspection of chest normal Resp normal respiratory effort and no use of accessory muscles Resp Narrative: Diminished breath sounds bilaterally suspected due to body habitus. No wheezingor crackles noted. Cardio regular rate, regular rhythm, no murmurs and peripheral pulses 2+ throughout GI normal to inspection, nondistended, normoactive bowel sounds, soft to palpation,non-tender and non-distended Back/Spine normal ROM Extremity Extremity Narrative: Bilateral lower extremities wrapped with Brittany wrap from toes up to knee. Noted to have significant bilateral lower extremity pitting edema on admission. Neuro no focal motor deficits and no sensory deficits noted Speech: speech normal Psych mental status grossly normal Assessment & Plan Assessment/Plan (1) Impaired mobility and ADLs: PLAN: Plan Patient is a 68-year-old male who presented [facility] ED on 10/28/2023 with failure to thrive. 1. Adult failure to thrive; Recent history of mechanical fall with RLE hematomaand mild head laceration; history of chronic lower extremity lymphedema Recent hospitalization at [facility] after patient had mechanical fall at home resulting in a facial laceration and right lower extremity hematoma. Was discharged to [facility] rehab facility and then was discharged home from there on 10/26. Unable to take care of himself at home so came to [facility] for further evaluation. Workup in the ED was fairly benign. Has remained hemodynamically stable since admission. ? PT/OT/case management following. Has Birttany wraps in place in bilateral legs, continue these wraps, okay for dressing changes with nursing staff while inpatient. Given 3 doses of IV Lasix to help with lower extremity swelling, then will resume home Lasix. Planning for SNF on discharge. Medically ready for discharge on 10/28, awaiting placement. 2. Chronic RLE DVT ? Recent LE duplex ultrasound from outside hospital on 10/21 showed chronic DVT in right proximal femoral vein and right popliteal vein. Continue home Eliquis. 3. Sinus bradycardia ? Noted to have sinus bradycardia to the 40s and 50s since admission. Home regimen unclear but patient was on both beta-maren and calcium channel blockerwith this bradycardia. Will continue Coreg 25 mg twice daily, holding diltiazemand Lopressor that are also listed in chart. Continue cardiac monitoring. Chronic medical conditions: ? Chronic normocytic anemia: Hemoglobin 8.7 on admit, baseline hemoglobin 8-9. Stable. ? CKD stage II: Creatinine 1.19 on admit. Baseline creatinine appears to be around 1.1-1.3. Stable. ? Type 2 diabetes mellitus: Home regimen of insulin glargine 75 units daily, insulin lispro sliding scale with meals, tirzepatide 5 mg weekly. Continue Xcsgbs48 units daily, sliding scale insulin with meals while inpatient, adjust as needed. ? PAF/flutter: Stable. Continue Coreg and Eliquis. ? Hypertension: Stable. Continue home amlodipine, Coreg. Giving IV Lasix x 3 doses as noted above, then will transition back to home p.o. Lasix. ? Hyperlipidemia: Continue home statin. ? Morbid obesity: BMI 47 on admit. Complicates hospital course, care and prognosis. ? PAWEL: Continue home CPAP. ? Former tobacco use: Encouraged continued cessation. DVT prophylaxis: Eliquis CODE STATUS: DNR CCA, DNI Expected disposition: SNF, medically ready for discharge on 10/28, awaiting placement Total clinical time spent by myself addressing the patient's medical issues, reviewing all the data, and collaborating with patient's care team: 35 minutes. Charges/Coding Visit Charges Inpatient E&M: 57200 Subs Hosp L2 10/29/23 0201 <Electronically signed by Washington Ames DO> Cosigner Signature (if applicable): CC: ~ Signed [facility] Work Phone: 1(777) 525-970504-19-2024 Discharge summary Author Shayna Martinez [facility] October 29, 2023 9:58am Note Date/Time October 28, 2023 1:3 3pm [facility] Medical Records Department [address] [place] [address] Emergency Department Summary 10/28/23 MR#: [id number] Acct: [id number] Name: JADON ALVAREZ Rep #:[id number] : 1955 68 From: Wu SHARIF PCP: ASHVIN ToscanoC Status:ADM CASEY Location: [place] [address] HPI <CHANTE Perez - Last Filed: 10/28/23 17:08> History of Present Illness Chief Complaint: Lower Extremity Injury Narrative Narrative: 60-year-old male with past medical history of HTN, DM2, atrial flutter, CHF, DVT, CKD, PAWEL, AV replacement went home from [facility] yesterday and cannot perform ADLs or dress his right lower extremity. He originally went to [facility] ED on 10/03/2023 after he fell at home and had a facial laceration and right lower extremity hematoma that became progressively worse with blistering of the skin. He is on Eliquis for atrial flutter. He was transferred to [facility] for evaluation of the right leg. He does not really know the details of what happened but he ended up in [place] rehab and issupposed to wear Brittany wrap's on the lower extremity. He states he told the rehabnurse he was ready to go home yesterday so he was discharged but he can only take a couple steps with his walker. He can barely make it to the fridge where he keeps his insulin. He cannot dress his right leg on his own. His son lives at home but works full-time and cannot help with these tasks. He came in by EMSbecause he cannot care for himself at home. He states on the way here he was emotional about having to come back to the hospital and he had 3 jolts of chestpain that have not returned and he had no other associated symptoms. PFSH <CHANTE Perez - Last Filed: 10/28/23 17:08> [facility] Medical History (Updated 10/28/23 @ 16:[address] Sommer Xie MD) Atrial fibrillation/flutter Benign essential HTN Chronic acquired lymphedema Chronic anemia CKD (chronic kidney disease), stage II DM2 (diabetes mellitus, type 2) Former tobacco use History of DVT (deep vein thrombosis) Morbid obesity Sleep apnea Valvular heart disease Venous insufficiency (chronic) (peripheral) Home Medications Olme/Amlo/Hctz 1 tab PO DAILY 03/17/19 [History Last Taken Unknown] ascorbic acid (vitamin C) 250 mg tablet 250 mg PO DAILY 03/17/19 [History Last Taken Unknown] aspirin 81 mg tablet,delayed release 81 mg PO DAILY 03/17/19 [History Last Taken Unknown] carvedilol 25 mg tablet 25 mg PO BID 03/17/19 [History Last Taken Unknown] doxycycline monohydrate 100 mg capsule 100 mg PO BID 03/17/19 [History Last Taken Unknown] hydralazine 50 mg tablet 50 mg PO BID 03/17/19 [History Last Taken Unknown] insulin detemir U-100 100 unit/mL subcutaneous solution 75 unit SQ DAILY 03/17/19 [History Last Taken Unknown] metformin 500 mg tablet 500 mg PO BID 03/17/19 [History Last Taken Unknown] semaglutide 1 mg/dose (2 mg/1.5 mL) subcutaneous pen injector 1 mg SQ QWEEK 03/17/19 [History Last Taken Unknown] Allergy/AdvReac Type Severity Reaction Status Date / Time ibuprofen [From Nuprin] Allergy Unknown Verified 10/28/23 13:13 Surgical History (Updated 10/28/23 @ 16:[address] Sommer Xie MD) S/P AVR (aortic valve replacement) Social History (System 06/16/21 @ 14:40 by Tawnya Amos) Smoking Status: Former smoker ROS <CHANTE Perez - Last Filed: 10/28/23 17:08> ROS ED ROS Narrative Constitutional: Negative for fever, chills, malaise. CVS: Positive for chest pain. Respiratory: Negative for shortness of breath, cough. GI: Negative for abdominal pain, nausea, vomiting, diarrhea. EXAM <CHANTE Perez - Last Filed: 10/28/23 17:08> Physical Exam Narrative Exam Narrative: CONST: Morbidly obese patient sitting in no acute distress. EYES: Normal inspection. NECK: Normal inspection. RESP: No respiratory distress, CTAB. Limited by body habitus. CVS: Regular rate and rhythm, no murmur, no gallop. SKIN: Color normal, no rash, warm, dry, intact. EXTREMITIES: Bilateral lower extremity edema with compressive Brittany wrap's on lower extremities. NEURO: Alert and answering questions appropriately. PSYCH: Normal affect. Const Vital Signs: 10/28/23 13:13 10/28/23 13:18 10/28/23 14:12 Temperature 98.8 F Temperature Source Temporal Pulse Rate 57 L 61 Respiratory Rate 20 H 16 Respiratory Effort Normal Blood Pressure 158/75 H 159/77 H Blood Pressure Mean 102 104 Pulse Ox 100 97 Oxygen Delivery Method Room Air Nasal Cannula Oxygen Flow Rate (L/min) 2 2 10/28/23 15:00 Temperature Temperature Source Pulse Rate 59 L Respiratory Rate 14 Respiratory Effort Blood Pressure 149/78 H Blood Pressure Mean 101 Pulse Ox 97 Oxygen Delivery Method Nasal Cannula Oxygen Flow Rate (L/min) 2 <Dr. Shayna Martinez DO - Last Filed: 10/28/23 15:23> Physical Exam Const Vital Signs: 10/28/23 13:13 10/28/23 13:18 10/28/23 14:12 Temperature 98.8 F Temperature Source Temporal Pulse Rate 57 L 61 Respiratory Rate 20 H 16 Respiratory Effort Normal Blood Pressure 158/75 H 159/77 H Blood Pressure Mean 102 104 Pulse Ox 100 97 Oxygen Delivery Method Room Air Nasal Cannula Oxygen Flow Rate (L/min) 2 2 10/28/23 15:00 Temperature Temperature Source Pulse Rate 59 L Respiratory Rate 14 Respiratory Effort Blood Pressure 149/78 H Blood Pressure Mean 101 Pulse Ox 97 Oxygen Delivery Method Nasal Cannula Oxygen Flow Rate (L/min) 2 [facility] <CHANTE Perez - Last Filed: 10/28/23 17:08> [facility] Narrative Medical decision making narrative: Patient had a fall on 10/03/2023 injuring his face and right lower extremity withhematoma formation. He went home from [facility] yesterday and cannot ambulate and perform ADLs independently. He presents for placement. He is awakeand alert and has no acute complaints. Vital signs are stable. Screening labs are at baseline. He has a normal white count at 5.6, hemoglobin is 8.7 (it was 7.8 on 10/20/2023 at [facility]). Renal function is normal. Troponin 21. EKG nonischemic. Patient does not have any acute medical problemsbut needs to go back to rehab due to inability to perform ADLs at home or ambulate well. Case will be discussed with social work. The social media executive states he requires PT/OT evaluation and precertification for placement so will need brought in for observation. Case was discussed with the hospitalist. I have personally performed a face to face assessment of the patient and have reviewed the PRISCILLA Note. I performed a substantive portion of the visit including all aspects of the following. My bird findings include: History is 68-year-old male discharged yesterday from rehab facility. Patient states he is unable to care for himself. Patient morbidly obese with diabetes and chronic venous insufficiency with recent admission to the hospital with anemia and DVT on anticoagulation. Patient was presented to EMS he was having some intermittent chest pain on the way to the hospital. His Dr. is at [facility] and he was admitted at [facility] and [facility]. It is unclear if on direct questioning is to apply he had a administering him to [facility]. Exam is morbidly obese male no acute distress. Bilateral lower extremity edema with chronic venous stasis changes. Medical Decison Making basic blood work will be obtained as well as cardiac evaluation. Patient will need to speak with the hospitalist to see if we can get him back into a rehab facility. Lab Data Attestation: I reviewed the patient's lab results. Labs: Laboratory Results - last 24 hr 10/28/23 13:20 WBC 5.6 RBC 3.30 L Hgb 8.7 L Hct 30.1 L MCV 91.2 MCH 26.4 L MCHC 28.9 L RDW Std Deviation 60.4 H RDW Coeff of Carlito 18.6 H Plt Count 276 MPV 10.6 Immature Gran % (Auto) 0.400 Neut % (Auto) 74.7 H Lymph % (Auto) 13.4 L Stoddard % (Auto) 9.3 Eos % (Auto) 1.8 Baso % (Auto) 0.4 Absolute Neuts (auto) 4.2 Absolute Lymphs (auto) 0.75 L Nucleated RBC % 0 Sodium 141 Potassium 4.7 Chloride 108 H Carbon Dioxide 34.0 H Anion Gap -1 L BUN 21 H Creatinine 1.19 Estim Creat Clear Calc 98.18 Est GFR (MDRD) Af Amer 78 Est GFR (MDRD) Non-Af 65 BUN/Creatinine Ratio 17.6 Glucose 139 H Calcium 8.8 Troponin I High Sens 21 Radiography Diagnostic Testing: Clinical Impression(s) from Imaging Studies Chest X-Ray 10/28/23 13:45 IMPRESSION: No acute abnormality is seen. Electronically Signed: Jesse Stewart MD at 14:09 EDT , <Dr. Shayna Martinez, DO - Last Filed: 10/28/23 15:23> [facility] MDM Narrative Medical decision making narrative: Patient had a fall on 10/03/2023 injuring his face and right lower extremity withhematoma formation. He went home from [facility] yesterday and cannot ambulate and perform ADLs independently. He presents for placement. He is awakeand alert and has no acute complaints. Vital signs are stable. Screening labs are at baseline. He has a normal white count at 5.6, hemoglobin is 8.7 (it was 7.8 on 10/20/2023 at [facility]). Renal function is normal. Troponin 21. EKG nonischemic. Patient does not have any acute medical problemsbut needs to go back to rehab due to inability to perform ADLs at home or ambulate well. Case will be discussed with social work. I have personally performed a face to face assessment of the patient and have reviewed the PRISCILLA Note. I performed a substantive portion of the visit including all aspects of the following. My bird findings include: History is 68-year-old male discharged yesterday from rehab facility. Patient states he is unable to care for himself. Patient morbidly obese with diabetes and chronic venous insufficiency with recent admission to the hospital with anemia and DVT on anticoagulation. Patient was presented to EMS he was having some intermittent chest pain on the way to the hospital. His Dr. is at [facility] and he was admitted at [facility] and [facility]. It is unclear if on direct questioning is to apply he had a administering him to [facility]. Exam is morbidly obese male no acute distress. Bilateral lower extremity edema with chronic venous stasis changes. Medical Decison Making basic blood work will be obtained as well as cardiac evaluation. Patient will need to speak with the hospitalist to see if we can get him back into a rehab facility. History & Record Review Discussion w/independent historian: Patient Additional record(s) reviewed:: Prior outpatient record and Prior labs Lab Data Labs: Laboratory Results - last 24 hr 10/28/23 13:20 WBC 5.6 RBC 3.30 L Hgb 8.7 L Hct 30.1 L MCV 91.2 MCH 26.4 L MCHC 28.9 L RDW Std Deviation 60.4 H RDW Coeff of Carlito 18.6 H Plt Count 276 MPV 10.6 Immature Gran % (Auto) 0.400 Neut % (Auto) 74.7 H Lymph % (Auto) 13.4 L Stoddard % (Auto) 9.3 Eos % (Auto) 1.8 Baso % (Auto) 0.4 Absolute Neuts (auto) 4.2 Absolute Lymphs (auto) 0.75 L Nucleated RBC % 0 Sodium 141 Potassium 4.7 Chloride 108 H Carbon Dioxide 34.0 H Anion Gap -1 L BUN 21 H Creatinine 1.19 Estim Creat Clear Calc 98.18 Est GFR (MDRD) Af Amer 78 Est GFR (MDRD) Non-Af 65 BUN/Creatinine Ratio 17.6 Glucose 139 H Calcium 8.8 Troponin I High Sens 21 Radiography Diagnostic Testing: Clinical Impression(s) from Imaging Studies Chest X-Ray 10/28/23 13:45 IMPRESSION: No acute abnormality is seen. Electronically Signed: Jesse Stewart MD at 14:09 EDT , EKG Initial EKG: Attestation: I personally reviewed and interpreted this EKG as follows: Comments: Sinus rhythm first-degree AV block ventricular rate of 70 bpm Discharge Plan Triage Chief Complaint: Lower Extremity Injury ED Midlevel Provider: Wu Rincon ED Provider: Shayna Martinez Dx/Rx/DC Orders Clinical Impression: Impaired mobility and ADLs, Chronic anemia Prescriptions: No Action metformin 500 MG tablet 500 mg PO BID carvedilol 25 MG tablet 25 mg PO BID aspirin 81 MG tablet,delayed release (DR/EC) 81 mg PO DAILY ascorbic acid (vitamin C) 250 MG tablet 250 mg PO DAILY doxycycline monohydrate 100 MG capsule 100 mg PO BID hydralazine 50 MG tablet 50 mg PO BID insulin detemir U-100 100 UNIT/ML solution 75 unit SQ DAILY semaglutide 1 MG/0.75 ML pen injector 1 mg SQ QWEEK Olme/Amlo/Hctz 1 tab PO DAILY Primary Care Provider: Kellie Benites NP Referrals: Kellie Benites USER EXPERIENCE ANALYST, USER EXPERIENCE ANALYST-C [Primary Care Provider] - What to do if you have Problems For any increased pain, shortness of breath, bleeding, nausea or vomiting, chestpain, or any unexpected problems, contact your Primary Care Provider. Call [facility] ([phone]) or report to the closest Emergency Room. Call 911 if necessary. 10/28/23 1708 <Electronically signed by uW SHARIF> Cosigner Signature (if applicable): 10/29/23 0924 <Electronically signed by Shayna Martinez DO> CC: SACHI-C Kellie Benites ~ Signed [facility] Work Phone: [phone]) 305-872004-18-2024 History and physical note Author Sommer Xie [facility] October 28, 2023 5:50pm Note Date/Time October 28, 2023 4:5 6pm [facility] Medical Records Department [address] [place] [id number] H&P Exam - Hospitalist 10/28/23 1654 MR#: [id number] Acct: [id number] Name: JADON ALVAREZ Rep #:[id number] : 1955 68 From: Sommer Xie MD PCP: NIKKO Toscano Status:REG ER Location: ED HPI - General General Date of Admission: 10/28/23 Date of Service: 10/28/23 Chief Complaint: Fatigue, malaise, adult FTT, unable to safely care for self at home. HPI Narrative The patient is a 68 y/o M w/ PMHx: Former tobacco use, Hx VTE, HF unclear type, Valvular Heart Disease s/p AV replacement, PAF/Flutter, Morbid Obesity, Chronic anemia, CKD stage II based on current GFR trending, HTN, HLD, Diabetes mellitus type II, BL LE Chronic lymphedema/PVD, PAWEL who presents to the [facility] ED on 10/28/23with history of leaving earlier than recommended from [facility] rehab facility the day prior with plan transition to home PT and OT with history of 10/03/2019 for evaluation in the ED with mechanical fall with facial laceration andright lower extremity hematoma transferred to [facility] for evaluation of the right lower extremity with unclear exact intervention but strong recommendation for Brittany wrap's and eventual transition to rehab given inability to take care of himself but unfortunately upon his return to home he realized hewas unable to care for himself prompting transition to the ED for transition back to rehab. He notes that his legs are so swollen that he is having a lot ofdifficulty walking. Workup in the ED included T98.8, heart rate 57, BP 150/75, respiratory rate 20, 97% on 2 L nasal cannula, CBC with WBC 5.6, hemoglobin 8.7,MCV 91.2, platelet 276 with lymphopenia, BMP with chloride 108, carbon oxide 34,BUN/creatinine 21/1.19, GFR 65, glucose 139, troponin 21, chest x-ray with no acute cardiopulmonary findings. [facility] Medical History Atrial fibrillation/flutter Benign essential HTN Chronic acquired lymphedema Chronic anemia CKD (chronic kidney disease), stage II DM2 (diabetes mellitus, type 2) Former tobacco use History of DVT (deep vein thrombosis) Morbid obesity Sleep apnea Valvular heart disease Venous insufficiency (chronic) (peripheral) Home Medications Olme/Amlo/Hctz 1 tab PO DAILY 03/17/19 [History Last Taken Unknown] ascorbic acid (vitamin C) 250 mg tablet 250 mg PO DAILY 03/17/19 [History Last Taken Unknown] aspirin 81 mg tablet,delayed release 81 mg PO DAILY 03/17/19 [History Last Taken Unknown] carvedilol 25 mg tablet 25 mg PO BID 03/17/19 [History Last Taken Unknown] doxycycline monohydrate 100 mg capsule 100 mg PO BID 03/17/19 [History Last Taken Unknown] hydralazine 50 mg tablet 50 mg PO BID 03/17/19 [History Last Taken Unknown] insulin detemir U-100 100 unit/mL subcutaneous solution 75 unit SQ DAILY 03/17/19 [History Last Taken Unknown] metformin 500 mg tablet 500 mg PO BID 03/17/19 [History Last Taken Unknown] semaglutide 1 mg/dose (2 mg/1.5 mL) subcutaneous pen injector 1 mg SQ QWEEK 03/17/19 [History Last Taken Unknown] Allergy/AdvReac Type Severity Reaction Status Date / Time ibuprofen [From Nuprin] Allergy Unknown Verified 10/28/23 13:13 Family History (Updated 10/28/23 @ 17:[address] Sommer Xie MD) Mother No problems noted. Father Cirrhosis of liver Alcoholism Surgical History (Updated 10/28/23 @ 17:[address] Sommer Xie MD) History of bladder surgery History of right inguinal hernia repair History of tonsillectomy and adenoidectomy S/P AVR (aortic valve replacement) Social History (Updated 10/28/23 @ 17:[address] Sommer Xie MD) household members: children Smoking Status: Former smoker how long ago did patient quit smoking: Quit ~ 20 yrs prior, smoked age 15 untilquit ~ 2 ppd. alcohol intake: never substance use type: does not use ROS ROS Narrative Admission Review of Systems: CONSTITUTIONAL: No weight loss, fever, chills, + weakness or fatigue. HEENT: Eyes: No visual loss, blurred vision, double vision or yellow sclerae. Ears, Nose, Throat: No hearing loss, sneezing, congestion, runny nose or sore throat. SKIN: No rash or itching, lesions, wounds except for significant bilateral lowerextremity venous stasis skin disease, stasis blisters, status post recent fall right lower extremity with hematoma resolving, staged ecchymoses. CARDIOVASCULAR: No chest pain, chest pressure or chest discomfort, palpitations,edema, orthopnea, syncopal events. RESPIRATORY: No shortness of breath, cough or sputum, wheezing, hemoptysis. GASTROINTESTINAL: No anorexia, nausea, vomiting or diarrhea, abdominal pain, melena, BRBPR. GENITOURINARY: No dysuria, frequency, urgency or retention. NEUROLOGICAL: No headache, dizziness, syncope, paralysis, ataxia, numbness or tingling in the extremities, focal weakness, change in bowel or bladder control,seizure. MUSCULOSKELETAL: + muscle, back pain, joint pain or stiffness. HEMATOLOGIC: + Chronic anemia, easy bleeding/bruising. LYMPHATICS: No enlarged nodes. No history of splenectomy. PSYCHIATRIC: No history of depression or anxiety. ENDOCRINOLOGIC: No reports of sweating, cold or heat intolerance. No polyuria orpolydipsia. ALLERGIES: + History of allergic rhinitis. Vital Signs Vital Signs Vital Signs: 10/28/23 13:13 10/28/23 13:18 10/28/23 14:12 Temperature 98.8 F Temperature Source Temporal Pulse Rate 57 L 61 Respiratory Rate 20 H 16 Respiratory Effort Normal Blood Pressure 158/75 H 159/77 H Blood Pressure Mean 102 104 Pulse Ox 100 97 Oxygen Delivery Method Room Air Nasal Cannula Oxygen Flow Rate (L/min) 2 2 10/28/23 15:00 Temperature Temperature Source Pulse Rate 59 L Respiratory Rate 14 Respiratory Effort Blood Pressure 149/78 H Blood Pressure Mean 101 Pulse Ox 97 Oxygen Delivery Method Nasal Cannula Oxygen Flow Rate (L/min) 2 Weight Weight: 372 lb 2.244 oz Body Mass Index (BMI) 47.7 Physical Exam Narrative Physical Examination: General: Awake, alert, oriented x 3 and cooperative, seated upright in the ED bed, fatigued appearing but otherwise no acute distress, very slow methodical speech. Skin: Normal color, normal turgor, no icterus, no cyanosis except for various staged ecchymoses including to the right periorbital region from recent fall, bilateral lower extremity significant venous stasis disease, right lower extremity status post fall with hematoma, resolving. HEENT: AT/NC, EOMI, PERRLA, mildly dry MM, no carotid bruits, no obvious JVD butthickened neck makes evaluation difficult. Lungs: Diminished, greater bases, appropriate effort, no rales, ronchi or wheezing. Heart: Regular rate and rhythm; no gallop, rub audible. Abdomen: Soft, morbidly obese, NTTP, distant normal BS, no appreciated distention or HSM but difficult given habitus. Extremities: No cyanosis, no clubbing, significant bilateral lower extremity pedal to distal just to knee 3+ pitting edema, see skin. Neurological: Patient awake, alert, oriented as noted, cognitive function intact; pupils equally reactive to light and accommodation, cranial nerves grossly normal, moving all 4 extremities but difficult and limited given significant edema he notes, no focal deficits, strength severely globally decreased. Psychiatric: Affect appears fatigued, mildly flat, no acute evidence of depressive or anxiety feelings. Results Lab / Micro Data 10/28/23 13:20 10/28/23 13:20 Labs: Laboratory Results - last 24 hr 10/28/23 13:20: WBC 5.6, RBC 3.30 L, Hgb 8.7 L, Hct 30.1 L, MCV 91.2, MCH 26.4 L, MCHC 28.9 L, RDW Std Deviation 60.4 H, RDW Coeff of Carlito 18.6 H, Plt Count 276,MPV 10.6, Immature Gran % (Auto) 0.400, Neut % (Auto) 74.7 H, Lymph % (Auto) 13.4 L, Stoddard % (Auto) 9.3, Eos % (Auto) 1.8, Baso % (Auto) 0.4, Absolute Neuts (auto) 4.2, Absolute Lymphs (auto) 0.75 L, Nucleated RBC % 0, Sodium 141, Potassium 4.7, Chloride 108 H, Carbon Dioxide 34.0 H, Anion Gap -1 L, BUN 21 H, Creatinine 1.19, Estim Creat Clear Calc 98.18, Est GFR (MDRD) Af Amer 78, Est GFR (MDRD) Non-Af 65, BUN/Creatinine Ratio 17.6, Glucose 139 H, Calcium 8.8, Troponin I High Sens 21 Imaging Radiology Impression Chest X-Ray 10/28/23 13:45 IMPRESSION: No acute abnormality is seen. Electronically Signed: Jesse Stewart MD at 14:09 EDT , Assessment & Plan Assessment/Plan (1) Impaired mobility and ADLs: PLAN: Plan The patient is a 68 y/o M w/ PMHx: Former tobacco use, Hx VTE, HF unclear type, Valvular Heart Disease s/p AV replacement, PAF/Flutter, Morbid Obesity, Chronic anemia, CKD stage II based on current GFR trending, HTN, HLD, Diabetes mellitus type II, BL LE Chronic lymphedema/PVD, PAWEL who presents to the [facility] ED on 10/28/23with history of leaving earlier than recommended from [facility] rehab facility the day prior with plan transition to home PT and OT with history of 10/03/2019 for evaluation in the ED with mechanical fall with facial laceration and right lower extremity hematoma transferred to [facility] for evaluation of the right lower extremity with unclear exact intervention but strong recommendation for Brittany wrap's and eventual transition to rehab given inability to take care of himself but unfortunately upon his return to home he realized hewas unable to care for himself prompting transition to the ED for transition back to rehab. #1. Weakness, debility, adult failure to thrive, multifactorial, secondary to #2 and compounded by underlying disease history as noted below: Will admit to medical surgical floor, maintain on fall precautions, place neck Brittany wraps with elevation and will pulse dose IV Lasix given lower extremity edema is contributing to patient reportedly being unable to walk well and possibly fall history, will trend CBC, CMP to assure stability, PT/OT/case management consulted for transition back to rehab versus skilled. #2. Recent Hx Mechanical Fall w/ Head Laceration, RLE Hematoma: As noted had been seen initially 10/03/2023 at [facility] ED with transition to [facility] with no surgical intervention, conservative approach, eventually restarted eliquis, will continue Brittany wraps to bilateral lower extremity given edema with pulse dose IV Lasix as noted above as may help with walking ability and continue to compress. PT/OT/case management consulted for discharge planning. #3. Normocytic anemia, chronic: Admission CBC with hemoglobin 8.7, MCV 91.2, prior noted to be 7.8 at [place] on 10/20/23, will continue to trend. #4. Chronic Kidney Disease Stage II per current GFR trending: Admission BUN/Cr 21/1.19, GFR 65, baseline renal function 10/25/23 Cr 1.27 with GFR 68, stable, repeat BMP in AM. #5. Diabetes mellitus type II: Hold oral home regimen, continue home insulin regimen, ADA diet, accu checks w/ ISS. #6. PAF/flutter: Will continue Eliquis, Coreg home regimen but clarifying home regimen. #7. Valvular heart disease: Status post previous AVR, bioprosthetic, possibly porcine, no echocardiogram noted in the system. #8. Hypertension: Continue home regimen including hydralazine, Coreg but currently clarifying home regimen PRN hydralazine. #9. Hyperlipidemia: Per current list on statin therapy, clarifying home regimen. #10. Morbid Obesity: Weight loss and lifestyle changes encouraged. #11. Bilateral lower extremity chronic lymphedema/PVD: Will continue eliquis, hypertensive regimen as noted but clarifying regimen as it is yet to be updated,clarifying if he is on a statin, will place snug Brittany wraps with bilateral lower extremity elevation and will pulse dose with IV Lasix x 3 doses to assist. Willcontinue to closely monitor renal function also in the interim. #12. 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 #13. Former tobacco use: Encourage continued tobacco cessation. #14. PAWEL: CPAP nightly encouraged. #15. DVT Prophylaxis: Continue eliquis home regimen. #16. CODE status: Patient JOVANY is his son and living will is currently in place. Discussed CODE status at length including difference between FULL code, DNR-CCA and DNR-CC status. Following discussions about the differences in these status, requested DNR-CCA, no intubation status. Advanced Care Planning Face to Face Time: 16 minutes. Charges/Coding Visit Charges Inpatient E&M: 70295 Init Hosp L2 Procedures Hospitalists Procedures: 41878 Advncd Care Plan 30 Min 10/28/23 1750 <Electronically signed by Sommer Xie MD> Cosigner Signature (if applicable): CC: NIKKO Benites; Dr. Sommer Xie MD~ Signed [facility] Work Phone: 1(555) 589-261604-18-2024 History and physical note Author Sommer Xie [facility] October 28, 2023 5:50pm Note Date/Time October 28, 2023 4:5 6pm [facility] Medical Records Department [address] [place] [id number] H&P Exam - Hospitalist 10/28/23 1654 MR#: [id number] Acct: [id number] Name: JADON ALVAREZ Rep #:[id number] : 1955 68 From: Sommer Xie MD PCP: ASHVIN ToscanoC Status:REG ER Location: ED HPI - General General Date of Admission: 10/28/23 Date of Service: 10/28/23 Chief Complaint: Fatigue, malaise, adult FTT, unable to safely care for self at home. HPI Narrative The patient is a 68 y/o M w/ PMHx: Former tobacco use, Hx VTE, HF unclear type, Valvular Heart Disease s/p AV replacement, PAF/Flutter, Morbid Obesity, Chronic anemia, CKD stage II based on current GFR trending, HTN, HLD, Diabetes mellitus type II, BL LE Chronic lymphedema/PVD, PAWEL who presents to the [facility] ED on 10/28/23with history of leaving earlier than recommended from [facility] rehab facility the day prior with plan transition to home PT and OT with history of 10/03/2019 for evaluation in the ED with mechanical fall with facial laceration andright lower extremity hematoma transferred to [facility] for evaluation of the right lower extremity with unclear exact intervention but strong recommendation for Brittany wrap's and eventual transition to rehab given inability to take care of himself but unfortunately upon his return to home he realized hewas unable to care for himself prompting transition to the ED for transition back to rehab. He notes that his legs are so swollen that he is having a lot ofdifficulty walking. Workup in the ED included T98.8, heart rate 57, BP 150/75, respiratory rate 20, 97% on 2 L nasal cannula, CBC with WBC 5.6, hemoglobin 8.7,MCV 91.2, platelet 276 with lymphopenia, BMP with chloride 108, carbon oxide 34,BUN/creatinine 21/1.19, GFR 65, glucose 139, troponin 21, chest x-ray with no acute cardiopulmonary findings. [facility] Medical History Atrial fibrillation/flutter Benign essential HTN Chronic acquired lymphedema Chronic anemia CKD (chronic kidney disease), stage II DM2 (diabetes mellitus, type 2) Former tobacco use History of DVT (deep vein thrombosis) Morbid obesity Sleep apnea Valvular heart disease Venous insufficiency (chronic) (peripheral) Home Medications Olme/Amlo/Hctz 1 tab PO DAILY 03/17/19 [History Last Taken Unknown] ascorbic acid (vitamin C) 250 mg tablet 250 mg PO DAILY 03/17/19 [History Last Taken Unknown] aspirin 81 mg tablet,delayed release 81 mg PO DAILY 03/17/19 [History Last Taken Unknown] carvedilol 25 mg tablet 25 mg PO BID 03/17/19 [History Last Taken Unknown] doxycycline monohydrate 100 mg capsule 100 mg PO BID 03/17/19 [History Last Taken Unknown] hydralazine 50 mg tablet 50 mg PO BID 03/17/19 [History Last Taken Unknown] insulin detemir U-100 100 unit/mL subcutaneous solution 75 unit SQ DAILY 03/17/19 [History Last Taken Unknown] metformin 500 mg tablet 500 mg PO BID 03/17/19 [History Last Taken Unknown] semaglutide 1 mg/dose (2 mg/1.5 mL) subcutaneous pen injector 1 mg SQ QWEEK 03/17/19 [History Last Taken Unknown] Allergy/AdvReac Type Severity Reaction Status Date / Time ibuprofen [From Nuprin] Allergy Unknown Verified 10/28/23 13:13 Family History (Updated 10/28/23 @ 17:[address] Sommer Xie MD) Mother No problems noted. Father Cirrhosis of liver Alcoholism Surgical History (Updated 10/28/23 @ 17:[address] Sommer Xie MD) History of bladder surgery History of right inguinal hernia repair History of tonsillectomy and adenoidectomy S/P AVR (aortic valve replacement) Social History (Updated 10/28/23 @ 17:[address] Sommer Xie MD) household members: children Smoking Status: Former smoker how long ago did patient quit smoking: Quit ~ 20 yrs prior, smoked age 15 untilquit ~ 2 ppd. alcohol intake: never substance use type: does not use ROS ROS Narrative Admission Review of Systems: CONSTITUTIONAL: No weight loss, fever, chills, + weakness or fatigue. HEENT: Eyes: No visual loss, blurred vision, double vision or yellow sclerae. Ears, Nose, Throat: No hearing loss, sneezing, congestion, runny nose or sore throat. SKIN: No rash or itching, lesions, wounds except for significant bilateral lowerextremity venous stasis skin disease, stasis blisters, status post recent fall right lower extremity with hematoma resolving, staged ecchymoses. CARDIOVASCULAR: No chest pain, chest pressure or chest discomfort, palpitations,edema, orthopnea, syncopal events. RESPIRATORY: No shortness of breath, cough or sputum, wheezing, hemoptysis. GASTROINTESTINAL: No anorexia, nausea, vomiting or diarrhea, abdominal pain, melena, BRBPR. GENITOURINARY: No dysuria, frequency, urgency or retention. NEUROLOGICAL: No headache, dizziness, syncope, paralysis, ataxia, numbness or tingling in the extremities, focal weakness, change in bowel or bladder control,seizure. MUSCULOSKELETAL: + muscle, back pain, joint pain or stiffness. HEMATOLOGIC: + Chronic anemia, easy bleeding/bruising. LYMPHATICS: No enlarged nodes. No history of splenectomy. PSYCHIATRIC: No history of depression or anxiety. ENDOCRINOLOGIC: No reports of sweating, cold or heat intolerance. No polyuria orpolydipsia. ALLERGIES: + History of allergic rhinitis. Vital Signs Vital Signs Vital Signs: 10/28/23 13:13 10/28/23 13:18 10/28/23 14:12 Temperature 98.8 F Temperature Source Temporal Pulse Rate 57 L 61 Respiratory Rate 20 H 16 Respiratory Effort Normal Blood Pressure 158/75 H 159/77 H Blood Pressure Mean 102 104 Pulse Ox 100 97 Oxygen Delivery Method Room Air Nasal Cannula Oxygen Flow Rate (L/min) 2 2 10/28/23 15:00 Temperature Temperature Source Pulse Rate 59 L Respiratory Rate 14 Respiratory Effort Blood Pressure 149/78 H Blood Pressure Mean 101 Pulse Ox 97 Oxygen Delivery Method Nasal Cannula Oxygen Flow Rate (L/min) 2 Weight Weight: 372 lb 2.244 oz Body Mass Index (BMI) 47.7 Physical Exam Narrative Physical Examination: General: Awake, alert, oriented x 3 and cooperative, seated upright in the ED bed, fatigued appearing but otherwise no acute distress, very slow methodical speech. Skin: Normal color, normal turgor, no icterus, no cyanosis except for various staged ecchymoses including to the right periorbital region from recent fall, bilateral lower extremity significant venous stasis disease, right lower extremity status post fall with hematoma, resolving. HEENT: AT/NC, EOMI, PERRLA, mildly dry MM, no carotid bruits, no obvious JVD butthickened neck makes evaluation difficult. Lungs: Diminished, greater bases, appropriate effort, no rales, ronchi or wheezing. Heart: Regular rate and rhythm; no gallop, rub audible. Abdomen: Soft, morbidly obese, NTTP, distant normal BS, no appreciated distention or HSM but difficult given habitus. Extremities: No cyanosis, no clubbing, significant bilateral lower extremity pedal to distal just to knee 3+ pitting edema, see skin. Neurological: Patient awake, alert, oriented as noted, cognitive function intact; pupils equally reactive to light and accommodation, cranial nerves grossly normal, moving all 4 extremities but difficult and limited given significant edema he notes, no focal deficits, strength severely globally decreased. Psychiatric: Affect appears fatigued, mildly flat, no acute evidence of depressive or anxiety feelings. Results Lab / Micro Data 10/28/23 13:20 10/28/23 13:20 Labs: Laboratory Results - last 24 hr 10/28/23 13:20: WBC 5.6, RBC 3.30 L, Hgb 8.7 L, Hct 30.1 L, MCV 91.2, MCH 26.4 L, MCHC 28.9 L, RDW Std Deviation 60.4 H, RDW Coeff of Carlito 18.6 H, Plt Count 276,MPV 10.6, Immature Gran % (Auto) 0.400, Neut % (Auto) 74.7 H, Lymph % (Auto) 13.4 L, Stoddard % (Auto) 9.3, Eos % (Auto) 1.8, Baso % (Auto) 0.4, Absolute Neuts (auto) 4.2, Absolute Lymphs (auto) 0.75 L, Nucleated RBC % 0, Sodium 141, Potassium 4.7, Chloride 108 H, Carbon Dioxide 34.0 H, Anion Gap -1 L, BUN 21 H, Creatinine 1.19, Estim Creat Clear Calc 98.18, Est GFR (MDRD) Af Amer 78, Est GFR (MDRD) Non-Af 65, BUN/Creatinine Ratio 17.6, Glucose 139 H, Calcium 8.8, Troponin I High Sens 21 Imaging Radiology Impression Chest X-Ray 10/28/23 13:45 IMPRESSION: No acute abnormality is seen. Electronically Signed: Jesse Stewart MD at 14:09 EDT , Assessment & Plan Assessment/Plan (1) Impaired mobility and ADLs: PLAN: Plan The patient is a 68 y/o M w/ PMHx: Former tobacco use, Hx VTE, HF unclear type, Valvular Heart Disease s/p AV replacement, PAF/Flutter, Morbid Obesity, Chronic anemia, CKD stage II based on current GFR trending, HTN, HLD, Diabetes mellitus type II, BL LE Chronic lymphedema/PVD, PAWEL who presents to the [facility] ED on 10/28/23with history of leaving earlier than recommended from [facility] rehab facility the day prior with plan transition to home PT and OT with history of 10/03/2019 for evaluation in the ED with mechanical fall with facial laceration and right lower extremity hematoma transferred to [facility] for evaluation of the right lower extremity with unclear exact intervention but strong recommendation for Brittany wrap's and eventual transition to rehab given inability to take care of himself but unfortunately upon his return to home he realized hewas unable to care for himself prompting transition to the ED for transition back to rehab. #1. Weakness, debility, adult failure to thrive, multifactorial, secondary to #2 and compounded by underlying disease history as noted below: Will admit to medical surgical floor, maintain on fall precautions, place neck Brittany wraps with elevation and will pulse dose IV Lasix given lower extremity edema is contributing to patient reportedly being unable to walk well and possibly fall history, will trend CBC, CMP to assure stability, PT/OT/case management consulted for transition back to rehab versus skilled. #2. Recent Hx Mechanical Fall w/ Head Laceration, RLE Hematoma: As noted had been seen initially 10/03/2023 at [facility] ED with transition to [facility] with no surgical intervention, conservative approach, eventually restarted eliquis, will continue Brittany wraps to bilateral lower extremity given edema with pulse dose IV Lasix as noted above as may help with walking ability and continue to compress. PT/OT/case management consulted for discharge planning. #3. Normocytic anemia, chronic: Admission CBC with hemoglobin 8.7, MCV 91.2, prior noted to be 7.8 at [facility] on 10/20/23, will continue to trend. #4. Chronic Kidney Disease Stage II per current GFR trending: Admission BUN/Cr 21/1.19, GFR 65, baseline renal function 10/25/23 Cr 1.27 with GFR 68, stable, repeat BMP in AM. #5. Diabetes mellitus type II: Hold oral home regimen, continue home insulin regimen, ADA diet, accu checks w/ ISS. #6. PAF/flutter: Will continue Eliquis, Coreg home regimen but clarifying home regimen. #7. Valvular heart disease: Status post previous AVR, bioprosthetic, possibly porcine, no echocardiogram noted in the system. #8. Hypertension: Continue home regimen including hydralazine, Coreg but currently clarifying home regimen PRN hydralazine. #9. Hyperlipidemia: Per current list on statin therapy, clarifying home regimen. #10. Morbid Obesity: Weight loss and lifestyle changes encouraged. #11. Bilateral lower extremity chronic lymphedema/PVD: Will continue eliquis, hypertensive regimen as noted but clarifying regimen as it is yet to be updated,clarifying if he is on a statin, will place snug Brittany wraps with bilateral lower extremity elevation and will pulse dose with IV Lasix x 3 doses to assist. Willcontinue to closely monitor renal function also in the interim. #12. Hx VTE: [facility] 10/22/23 RLE with chronic DVT evidence R proximal femoral vein and R popliteal vein, will continue eliquis. #13. Former tobacco use: Encourage continued tobacco cessation. #14. PAWEL: CPAP nightly encouraged. #15. DVT Prophylaxis: Continue eliquis home regimen. #16. CODE status: Patient JOVANY is his son and living will is currently in place. Discussed CODE status at length including difference between FULL code, DNR-CCA and DNR-CC status. Following discussions about the differences in these status, requested DNR-CCA, no intubation status. Advanced Care Planning Face to Face Time: 16 minutes. Charges/Coding Visit Charges Inpatient E&M: 31474 Init Hosp L2 Procedures Hospitalists Procedures: 03587 Advncd Care Plan 30 Min 10/28/23 1750 <Electronically signed by Sommer Xie MD> Cosigner Signature (if applicable): CC: NIKKO Benites; Dr. Sommer Xie MD~ Signed [facility] Work Phone: [phone] Hospital Discharge instructions Patient Education 10/27/2023 09:48:34 Wound Care, Adult Wound Care, Adult Taking care of your wound properly can help to prevent pain, infection, and scarring. It can also help your wound to heal more quickly. How to care for your wound Wound care Follow instructions from your health care provider about how to take care of your wound. Make sure you: ?Wash your hands with soap and water before you change the bandage (dressing). If soap and water are not available, use hand television presenter. ?Change your dressing as told by your health care provider. ?Leave stitches (sutures), skin glue, or adhesive strips in place. These skin closures may need to stay in place for 2 weeks or longer. If adhesive strip edges start to loosen and curl up, you may trim the loose edges. Do not remove adhesive strips completely unless your health care provider tells you to do that. Check your wound area every day for signs of infection. Check for: ?Redness, swelling, or pain. ?Fluid or blood. ?Warmth. ?Pus or a bad smell. Ask your health care provider if you should clean the wound with mild soap and water. Doing this may include: ?Using a clean towel to pat the wound dry after cleaning it. Do not rub or scrub the wound. ?Applying a cream or ointment. Do this only as told by your health care provider. ?Covering the incision with a clean dressing. Ask your health care provider when you can leave the wound uncovered. Keep the dressing dry until your health care provider says it can be removed. Do not take baths, swim, use a hot tub, or do anything that would put the wound underwater until your health care provider approves. Ask your health care provider if you can take showers. You may only be allowed to take sponge baths. Medicines If you were prescribed an antibiotic medicine, cream, or ointment, take or use the antibiotic as told by your health care provider. Do not stop taking or using the antibiotic even if your condition improves. Take [id number] and prescription medicines only as told by your health care provider. If you were prescribed pain medicine, take it 30 or more minutes before you do any wound care or as told byyour health care provider. General instructions Return to your normal activities as told by your health care provider. Ask your health care provider what activities are safe. Do not scratch or pick at the wound. Do not use any products that contain nicotine or tobacco, such as cigarettes and e-cigarettes. These may delay wound healing. If you need help quitting, ask your health care provider. Keep all follow-up visits as told by your health care provider. This is important. Eat a diet that includes protein, vitamin A, vitamin C, and other nutrient-rich foods to help the wound heal. ?Foods rich in protein include meat, dairy, beans, nuts, and other sources. ?Foods rich in vitamin A include carrots and dark green, leafy vegetables. ?Foods rich in vitamin C include citrus, tomatoes, and other fruits and vegetables. ?Nutrient-rich foods have protein, carbohydrates, fat, vitamins, or minerals. Eat a variety of healthy foods including vegetables, fruits, and whole grains. Contact a health care provider if: You received a tetanus shot and you have swelling, severe pain, redness, or bleeding at the injection site. Your pain is not controlled with medicine. You have redness, swelling, or pain around the wound. You have fluid or blood coming from the wound. Your wound feels warm to the touch. You have pus or a bad smell coming from the wound. You have a fever or chills. You are nauseous or you vomit. You are dizzy. Get help right away if: You have a red streak going away from your wound. The edges of the wound open up and separate. Your wound is bleeding, and the bleeding does not stop with gentle pressure. You have a rash. You faint. You have trouble breathing. Summary Always wash your hands with soap and water before changing your bandage (dressing). To help with healing, eat foods that are rich in protein, vitamin A, vitamin C, and other nutrients. Check your wound every day for signs of infection. Contact your health care provider if you suspectthat your wound is infected. This information is not intended to replace advice given to you by your health care provider. Make sure you discuss any questions you have with your health care provider. Document Released: 04/06/2009 Document Revised: 10/16/2019 Document Reviewed: 01/12/2017 [employer] Patient Education 2020 [employer]. Follow Up Care 10/13/2023 14:22:49 With:DAVE GOMES DO Address: [address] [place] [address] [phone] When: Unknown Comments:Call office if you change your mind. We recommend that you follow up to determine if there is a blood clotting disorder. With:KELLIE BENITES [facility] Address: [address] [place] [address] [phone] When: Unknown Comments:Please call to schedule your post-hospital follow-up appointment with your primary care. With:ANIRUDH SZYMANSKI DO, Orthopedic Address: [address], [place] [address] [phone] When:10/27/2023 11:00:00 Comments:This is your orthopedic follow-up appointment. With:GAVINO AG [facility] Address: [address] [place] [address] [address] [facility] [place] [address] [phone] When:11/01/2023 11:15:00 Comments:This is your post-hospital follow-up appointment with cardiology. [facility] 2024 Note Discharge Instructions Thank you for allowing [facility] to assist you with your healthcare needs. The following is importantdischarge information regarding your hospital visit. Your Care Team Mirela Olivo CNP Your Diagnosis (HFpEF) heart failure with preserved ejection fraction Acute pain Asthenia Atrial flutter CKD (chronic kidney disease) Diabetes mellitus type 2, Type 2 diabetes mellitus DVT of leg (deep venous thrombosis) Heart failure Leg wound, right PAWEL on CPAP, PAWEL on CPAP What to do next Instructions From Your Doctor You have progressed well with therapy. It was recommended that you follow up with a contract associate manager(blood doctor) to see if you have a clotting disorder. You declined. If you change your mind, there is a contract associate manager name and phone number listed in your discharge paper work. Cari was restarted. Scheduled Follow-Up Appointments Appointment Type When With Where Contact Information[facility] Hospital Follow Up 11/01/2023 11:15 AM EDT GAVINO AG [facility] - Diabetic Individual Visit 12/30/2023 09:00 AM EDT [facility] [phone] Follow Up Appointments Follow Up with GAVINO AG When 11/01/2023 11:15 AM EDT Why: This is your post-hospital follow-up appointment with cardiology. Where: [address] [place] [address] [address] [facility] [place] [address] [phone] Follow Up with ANIRUDH SZYMANSKI DO Orthopedic When 10/27/2023 11:00 AM EDT Why: This is your orthopedic follow-up appointment. Where: [address] [facility], [place] [address] [phone] Follow Up with DAVE GOMES DO When Why: Call office if you change your mind. We recommend that you follow up to determine if there is a blood clotting disorder. Where: [address] [place] [address] [phone] Follow Up with KELLIE BENITES When Why: Please call to schedule your post-hospital follow-up appointment with your primary care. Where: [address] [place] [address] [phone] The Following Activity and Diet Have Been Ordered for You Discharge Activity - Ordered -- Resume your pre-hospitalization activity, 10/27/23 7:55:00 EDT Discharge Diet - Ordered -- No changes were made to your diet during your hospital stay. Please resume your pre hospitalization diet on discharge., 10/27/23 7:55:00 EDT The Following Equipment Has Been Ordered for You Discharge Home Equipment Discharge Wound Care - Ordered -- Right lower extremity wound: Daily dressing changes. Cleanse with soap and water apply Adaptic and cover with gauze., 10/27/23 9:05:00 EDT The Following Treatments Have Been Ordered for You Discharge Labs No qualifying data available. Discharge Radiology No qualifying data available. Other Therapies No qualifying data available. Post Acute Orders No qualifying data available. Allergies Nuprin (Unknown) misc non-codified allergy (unknown) Medications Please ask your primary doctor or pharmacist before taking any other medication not listed, including over the counter drugs, herbal medications, vitamins and or supplements as they may interact withyour home medications. What How Much When Why Instructions Last Dose New doxycycline (doxycycline hyclate 100 mg oral tablet) 100 Milligram by mouth Two (2) times a day Duration: 5 Days Pickup at [facility] Changed acetaminophen-oxyCODONE (acetaminophen-oxyCODONE 325 mg-5 mg oral tablet) 1 tab(s) by mouth Every 6 hours as needed for for pain Acute pain Duration: 3 Days Pickup at [facility] Unchanged amLODIPine (amLODIPine 5 mg oral tablet) 1 tab(s) by mouth Once a day Unchanged apixaban (Eliquis 5 mg oral tablet) Unchanged ascorbic acid (Vitamin C 500 mg oral tablet) 1 tab(s) by mouth Once a day Unchanged atorvastatin (atorvastatin 20 mg oral tablet) 1 tab(s) by mouth Once a day Diabetes mellitus type 2 Duration: 90 Days Unchanged budesonide-formoterol (budesonide-formoterol 160 mcg-4.5 mcg/ inh Inhaler) 2 puff(s) by inhalation Every day Duration: 90 Days Unchanged bumetanide (bumetanide 1 mg oral tablet) 0.5 tab(s) by mouth Two (2) times a day Unchanged carvedilol (carvedilol 25 mg oral tablet) Unchanged dilTIAZem (DilTIAZem (Eqv-Cardizem CD) 180 mg/ 24 hours oral capsule, extended release) Unchanged ferrous sulfate (IRON (ferrous sulfate 325 mg) 65 mg oral tablet) 1 tab(s) by mouth Once a day Take with food. Unchanged furosemide (furosemide 40 mg oral tablet) Unchanged gabapentin (gabapentin 300 mg oral capsule) 1 cap by mouth Three (3) times a day Unchanged insulin glargine (Lantus 100 units/ mL10 ml vial solution) 75 unit(s) Subcutaneous (INT) Once a day Unchanged insulin lispro (HumaLOG) (HumaLOG 100 units/ mL subcutaneous solution) Give 0-5 units/dose Subcutaneous Three (3) times a day before meals Unchanged melatonin (melatonin 3 mg oral tablet) 1 tab(s) by mouth Daily at bedtime as needed for Sleep Unchanged metoprolol (Lopressor) 12.5 Milligram by mouth Two (2) times a day Unchanged polyethylene glycol 3350 (MiraLax oral powder for reconstitution) by mouth Two (2) times a day Unchanged tirzepatide (Mounjaro 5 mg/ 0.5 mL subcutaneous solution) Pharmacy Information [facility]: [address] [place] [address] [phone] What How Much When Comments Stop Taking acetaminophen (Tylenol 325 mg oral capsule) 650 Milligram by mouth Every 4 hours as needed for Pain, scale 1-3 Stop Taking glucose (glucose 50% intravenous solution) 25 Milliliter IV Push As Directed as needed for Hypoglycemia Stop Taking Misc Medication (O2) 2L at hs or whenever laying down Stop Taking ondansetron (Zofran) 4 Milligram IV Push Every 4 hours as needed for Nausea/Vomiting Please take this list to your next doctor s visit. Bring all medications you take, including over the counter medications, herbals and other supplements with you to your doctor s visit. Patients and families are reminded to discard old lists and to update any records with all medication providers or retail pharmacies. Medication Leaflets doxycycline (oral/injection) (DOX darrel humphrey) Acticlate, Adoxa, Alodox, Avidoxy, Doryx, Doryx MPC, Lymepak, Mondoxyne NL, Monodox, Morgidox, Morgidox 4x087qw, Morgidox 3u025yy, Okebo, Oracea, Targadox, Vibramycin, Vibramycin Monohydrate What is the most important information I should know about doxycycline? You should not take this medicine if you are allergic to any tetracycline antibiotic. Children younger than 8 years old should use doxycycline only in cases of severe or life-threatening conditions. This medicine can cause permanent yellowing or graying of the teeth in children Using doxycycline during could harm the unborn baby or cause permanent tooth discoloration later in the baby's life. What is doxycycline? Doxycycline is a tetracycline antibiotic that Doxycycline is used to treat many different bacterial infections, such as acne, urinary tract infections, intestinal infections, eye infections, gonorrhea, chlamydia, periodontitis (gum disease), andothers. Doxycycline is also used to treat blemishes, bumps, and acne-like lesions caused by rosacea. Doxycycline will not treat facial redness caused by rosacea. Some forms of doxycycline are used to prevent malaria, to treat anthrax, or to treat infections caused by mites, ticks, or lice. Doxycycline may also be used for purposes not listed in this medication guide. What should I discuss with my healthcare provider before taking doxycycline? You should not take this medicine if you are allergic to doxycycline or other tetracycline antibiotics such as demeclocycline, minocycline, tetracycline, or tigecycline. Tell your doctor if you have ever had: liver disease; kidney disease; asthma or sulfite allergy; increased pressure inside your skull; or if you also take isotretinoin, seizure medicine, or a blood thinner such as warfarin (Coumadin). If you are using doxycycline to treat gonorrhea, your doctor may test you to make sure you do not also have syphilis, another sexually transmitted disease. Taking this medicine during may affect tooth and bone development in the unborn baby. Taking doxycycline during the last half of can cause permanent tooth discoloration later in the baby's life. Tell your doctor if you are or if you become . Doxycycline can make control pills less effective. Ask your doctor about using a non-hormonalbirth control (condom, diaphragm with spermicide) to prevent . Doxycycline can pass into breast milk and may affect bone and tooth development in a nursing . Do not breastfeed while you are taking doxycycline. Doxycycline can cause permanent yellowing or graying of the teeth in children younger than 8 years old. Children should use doxycycline only in cases of severe or life-threatening conditions such as anthrax or Johnston spotted fever. The benefit of treating a serious condition may outweigh any risks to the child's tooth development. How should I take doxycycline? Follow all directions on your prescription label and read all medication guides or instruction sheets. Use the medicine exactly as directed. Take doxycycline with a full glass of water. Drink plenty of liquids while you are taking doxycycline. Read and carefully follow any Instructions for Use provided with your medicine. Ask your doctor or pharmacist if you do not understand these instructions. Most brands of doxycyline may be taken with food or milk if the medicine upsets your stomach. Different brands of doxycycline may have different instructions about taking them with or without food. Take Oracea on an empty stomach, at least 1 hour before or 2 hours after a meal. You may need to split a doxycycline tablet to get the correct dose. Follow your doctor's instructions. Swallow a delayed-release capsule or tablet whole. Do not crush, chew, break, or open it. Measure liquid medicine with the dosing syringe provided, or with a special dose-measuring spoon ormedicine cup. If you do not have a dose-measuring device, ask your pharmacist for one. If you take doxycycline to prevent malaria: Start taking the medicine 1 or 2 days before entering an area where malaria is common. Continue taking the medicine every day during your stay and for at least 4 weeks after you leave the area. Doxycycline is usually given by injection only if you are unable to take the medicine by mouth. A healthcare provider will give you this injection as an infusion into a vein. Use this medicine for the full prescribed length of time, even if your symptoms quickly improve. Skipping doses can increase your risk of infection that is resistant to medication. Doxycycline will not treat a viral infection such as the flu or a common cold. Store at room temperature away from moisture, heat, and light. Throw away any unused medicine after the expiration date on the label has passed. Using doxycycline can cause damage to your kidneys. What happens if I miss a dose? Take the medicine as soon as you can, but skip the missed dose if it is almost time for your next dose. Do not take two doses at one time. What happens if I overdose? Seek emergency medical attention or call the Poison Help line at . What should I avoid while taking doxycycline? Do not take iron supplements, multivitamins, calcium supplements, antacids, or laxatives within 2 hours before or after taking doxycycline. Avoid taking any other antibiotics with doxycycline unless your doctor has told you to. Doxycycline could make you sunburn more easily. Avoid sunlight or tanning beds. Wear protective clothing and use sunscreen (SPF 30 or higher) when you are outdoors. Antibiotic medicines can cause diarrhea, which may be a sign of a new infection. If you have diarrhea that is watery or bloody, call your doctor. Do not use anti-diarrhea medicine unless your doctor tells you to. What are the possible side effects of doxycycline? Get emergency medical help if you have signs of an allergic reaction (hives, difficult breathing, swelling in your face or throat) or a severe skin reaction (fever, sore throat, burning in your eyes,skin pain, red or purple skin rash that spreads and causes blistering and peeling). Seek medical treatment if you have a serious drug reaction that can affect many parts of your body.Symptoms may include: skin rash, fever, swollen glands, flu- like symptoms, muscle aches, severe weakness, unusual bruising, or yellowing of your skin or eyes. This reaction may occur several weeks after you began using doxycycline. Call your doctor at once if you have: severe stomach pain, diarrhea that is watery or bloody; throat irritation, trouble swallowing; chest pain, irregular heart rhythm, feeling short of breath; little or no urination; low white blood cell counts--fever, chills, swollen glands, body aches, weakness, pale skin, easy bruising or bleeding; increased pressure inside the skull--severe headaches, ringing in your ears, dizziness, nausea, vision problems, pain behind your eyes; or signs of liver or pancreas problems--loss of appetite, upper stomach pain (that may spread to your back), tiredness, nausea or vomiting, fast heart rate, dark urine, jaundice (yellowing of the skin or eyes). Common side effects may include: nausea, vomiting, upset stomach, loss of appetite; mild diarrhea; skin rash or itching; darkened skin color; or vaginal itching or discharge. This is not a complete list of side effects and others may occur. Call your doctor for medical advice about side effects. You may report side effects to FDA at 3-920-HCL-8815. What other drugs will affect doxycycline? Sometimes it is not safe to use certain medications at the same time. Some drugs can affect your blood levels of other drugs you take, which may increase side effects or make the medications less effective. Other drugs may affect doxycycline, including prescription and awfu-hjy-pkoixgz medicines, vitamins, and herbal products. Tell your doctor about all your current medicines and any medicine you start or stop using. Where can I get more information? Your pharmacist can provide more information about doxycycline. Remember, keep this and all other medicines out of the reach of children, never share your medicines with others, and use this medication only for the indication prescribed. Every effort has been made to ensure that the information provided by [employer]. [employer]') is accurate, up-to-date, and complete, but no guarantee is made to that effect. Drug information contained herein may be time sensitive. [employer] information has been compiled for use by healthcare practitioners and consumers in the [place] and therefore [employer] does not warrant that uses outside of the [place] are appropriate, unless specifically indicated otherwise. [employer] drug information does not endorse drugs, diagnose patients or recommend therapy. [employer] drug information isan informational resource designed to assist licensed healthcare practitioners in caring for their p atients and/or to serve consumers viewing this service as a supplement to, and not a substitute for, the expertise, skill, knowledge and judgment of healthcare practitioners. The absence of a warningfor a given drug or drug combination in no way should be construed to indicate that the drug or drug combination is safe, effective or appropriate for any given patient. [employer] does not assume any responsibility for any aspect of healthcare administered with the aid of information [employer] provides. The information contained herein is not intended to cover all possible uses, directions, precautions, warnings, drug interactions, allergic reactions, or adverse effects. If you have questions about the drugs you are taking, check with your doctor, nurse or pharmacist. Copyright 7128-2087 [employer]. Version: 25.. Revision Date: 03/17/2023. acetaminophen and oxycodone (a SEET a MIN oh fen and OX i KOE done) Endocet 10/325, Endocet 2.5/325, Endocet 5/325, Endocet 7.5/325, Nalocet, Percocet, Prolate What is the most important information I should know about acetaminophen and oxycodone? MISUSE OF OPIOID MEDICINE CAN CAUSE ADDICTION, OVERDOSE, OR . Keep the medication in a place where others cannot get to it. Taking opioid medicine during may cause life-threatening withdrawal symptoms in the . Fatal side effects can occur if you use opioid medicine with alcohol, or with other drugs that cause drowsiness or slow your breathing. Stop taking this medicine and call your doctor right away if you have skin redness or a rash that spreads and causes blistering and peeling. What is acetaminophen and oxycodone? Acetaminophen and oxycodone is a combination medicine used to relieve moderate to severe pain. Acetaminophen and oxycodone contains an opioide medicine and may be habit-forming. Acetaminophen and oxycodone may also be used for purposes not listed in this medication guide. What should I discuss with my healthcare provider before taking acetaminophen and oxycodone? You should not use this medicine if you are allergic to acetaminophen or oxycodone, or if you have: severe asthma or breathing problems; or a blockage in your stomach or intestines. Tell your doctor if you have ever had: breathing problems, sleep apnea; liver disease; a drug or alcohol addiction; kidney disease; a head injury or seizures; urination problems; or problems with your thyroid, pancreas, or gallbladder. If you use opioid medicine while you are , your baby could become dependent on the drug. This can cause life-threatening withdrawal symptoms in the baby after it is born. Babies born dependent on opioids may need medical treatment for several weeks. Ask a doctor before using opioid medicine if you are . Tell your doctor if you notice severe drowsiness or slow breathing in the nursing baby. How should I take acetaminophen and oxycodone? Follow all directions on your prescription label. Never take this medicine in larger amounts, or for longer than prescribed. An overdose can damage your liver or cause . Tell your doctor if you feel an increased urge to use more of this medicine. Never share opioid medicine with another person, especially someone with a history of drug abuse oraddiction. MISUSE CAN CAUSE ADDICTION, OVERDOSE, OR . Keep the medicine in a place where others cannot get to it. Selling or giving away opioid medicine is against the law. Measure liquid medicine carefully. Use the dosing syringe provided, or use a medicine dose-measuring device (not a kitchen spoon). If you need surgery or medical tests, tell the doctor ahead of time that you are using this medicine. You should not stop using this medicine suddenly. Follow your doctor's instructions about tapering your dose. Store at room temperature away from moisture and heat. Keep track of your medicine. You should be aware if anyone is using it improperly or without a prescription. Do not keep leftover opioid medication. Just one dose can cause in someone using this medicine accidentally or improperly. Ask your pharmacist where to locate a drug take-back disposal program.If there is no take-back program, flush the unused medicine down the toilet. What happens if I miss a dose? Since this medicine is used for pain, you are not likely to miss a dose. Skip any missed dose if itis almost time for your next dose. Do not use two doses at one time. What happens if I overdose? Seek emergency medical attention or call the Poison Help line at . An overdose of this medicine can be fatal, especially in a child or other person using the medicine without a prescription. Overdose symptoms may include nausea, vomiting, sweating, severe drowsiness, pinpoint pupils, slow breathing, or no breathing. Your doctor may recommend you get naloxone (a medicine to reverse an opioid overdose) and keep it with you at all times. A person caring for you can give the naloxone if you stop breathing or don't wake up. Your caregiver must still get emergency medical help and may need to perform CPR (cardiopulmonary resuscitation) on you while waiting for help to arrive. Anyone can buy naloxone from a pharmacy or local health department. Make sure any person caring foryou knows where you keep naloxone and how to use it. What should I avoid while taking acetaminophen and oxycodone? Avoid driving or operating machinery until you know how this medicine will affect you. Dizziness ordrowsiness can cause falls, accidents, or severe injuries. Do not drink alcohol. Dangerous side effects or could occur. Ask a doctor or pharmacist before using any other medicine that may contain acetaminophen (sometimes abbreviated as APAP). Taking certain medications together can lead to a fatal overdose. What are the possible side effects of acetaminophen and oxycodone? Get emergency medical help if you have signs of an allergic reaction: hives; difficulty breathing; swelling of your face, lips, tongue, or throat. Opioid medicine can slow or stop your breathing, and may occur. A person caring for you should give naloxone and/or seek emergency medical attention if you have slow breathing with long pauses,blue colored lips, or if you are hard to wake up. In rare cases, acetaminophen may cause a severe skin reaction that can be fatal. This could occur even if you have taken acetaminophen in the past and had no reaction. Stop taking this medicine and call your doctor right away if you have skin redness or a rash that spreads and causes blistering andpeeling. Call your doctor at once if you have: noisy breathing, sighing, shallow breathing, breathing that stops; a light-headed feeling, like you might pass out; weakness, tiredness, fever, unusual bruising or bleeding; confusion, unusual thoughts or behavior; problems with urination; liver problems--nausea, upper stomach pain, tiredness, loss of appetite, dark urine, yamileth-colored stools, jaundice (yellowing of the skin or eyes); low cortisol levels-- nausea, vomiting, loss of appetite, dizziness, worsening tiredness or weakness; or high levels of serotonin in the body--agitation, hallucinations, fever, sweating, shivering, fast heart rate, muscle stiffness, twitching, loss of coordination, nausea, vomiting, diarrhea. Serious breathing problems may be more likely in older adults and in those who are debilitated or have wasting syndrome or chronic breathing disorders. Common side effects include: dizziness, drowsiness, feeling tired; feelings of extreme happiness or sadness; nausea, vomiting, stomach pain; constipation; or headache. This is not a complete list of side effects and others may occur. Call your doctor for medical advice about side effects. You may report side effects to FDA at 3-798-RGO-0055. What other drugs will affect acetaminophen and oxycodone? You may have breathing problems or withdrawal symptoms if you start or stop taking certain other medicines. Tell your doctor if you also use an antibiotic, antifungal medication, heart or blood pressure medication, seizure medication, or medicine to treat HIV or hepatitis C. Opioid medication can interact with many other drugs and cause dangerous side effects or . Be sure your doctor knows if you also use: cold or allergy medicines, bronchodilator asthma/COPD medication, or a diuretic ('water pill'); medicines for motion sickness, irritable bowel syndrome, or overactive bladder; other opioids--opioid pain medicine or prescription cough medicine; a sedative like Valium--diazepam, alprazolam, lorazepam, Xanax, Klonopin, Versed, and others; drugs that make you sleepy or slow your breathing--a sleeping pill, muscle relaxer, medicine to treat mood disorders or mental illness; drugs that affect serotonin levels in your body--a stimulant, or medicine for depression, Parkinson's disease, migraine headaches, serious infections, or nausea and vomiting. This list is not complete. Other drugs may affect acetaminophen and oxycodone, including prescription and gryj-kds-zklvmox medicines, vitamins, and herbal products. Not all possible interactions are listed here. Where can I get more information? Your doctor or pharmacist can provide more information about acetaminophen and oxycodone. Remember, keep this and all other medicines out of the reach of children, never share your medicines with others, and use this medication only for the indication prescribed. Every effort has been made to ensure that the information provided by [employer]') is accurate, up-to-date, and complete, but no guarantee is made to that effect. Drug information contained herein may be time sensitive. [employer] information has been compiled for use by healthcare practitioners and consumers in the [place] and therefore [employer] does not warrant that uses outside of the [place] are appropriate, unless specifically indicated otherwise. [employer] drug information does not endorse drugs, diagnose patients or recommend therapy. [employer] drug information isan informational resource designed to assist licensed healthcare practitioners in caring for their p atients and/or to serve consumers viewing this service as a supplement to, and not a substitute for, the expertise, skill, knowledge and judgment of healthcare practitioners. The absence of a warningfor a given drug or drug combination in no way should be construed to indicate that the drug or drug combination is safe, effective or appropriate for any given patient. [employer] does not assume any responsibility for any aspect of healthcare administered with the aid of information [employer] provides. The information contained herein is not intended to cover all possible uses, directions, precautions, warnings, drug interactions, allergic reactions, or adverse effects. If you have questions about the drugs you are taking, check with your doctor, nurse or pharmacist. Copyright 2804-5066 [employer]. Version: 22.. Revision Date: 02/11/2023. Education Materials Wound Care, Adult Taking care of your wound properly can help to prevent pain, infection, and scarring. It can also help your wound to heal more quickly. How to care for your wound Wound care Follow instructions from your health care provider about how to take care of your wound. Make sure you: ? Wash your hands with soap and water before you change the bandage (dressing). If soap and water arenot available, use hand television presenter. ? Change your dressing as told by your health care provider. ? Leave stitches (sutures), skin glue, or adhesive strips in place. These skin closures may need to stay in place for 2 weeks or longer. If adhesive strip edges start to loosen and curl up, you may trim the loose edges. Do not remove adhesive strips completely unless your health care provider tells you to do that. Check your wound area every day for signs of infection. Check for: ? Redness, swelling, or pain. ? Fluid or blood. ? Warmth. ? Pus or a bad smell. Ask your health care provider if you should clean the wound with mild soap and water. Doing this may include: ? Using a clean towel to pat the wound dry after cleaning it. Do not rub or scrub the wound. ? Applying a cream or ointment. Do this only as told by your health care provider. ? Covering the incision with a clean dressing. Ask your health care provider when you can leave the wound uncovered. Keep the dressing dry until your health care provider says it can be removed. Do not take baths, swim, use a hot tub, or do anything that would put the wound underwater until your health care provider approves. Ask your health care provider if you can take showers. You may only be allowed to take sponge baths. Medicines If you were prescribed an antibiotic medicine, cream, or ointment, take or use the antibiotic as told by your health care provider. Do not stop taking or using the antibiotic even if your condition improves. Take okfp-pbk-dusnspp and prescription medicines only as told by your health care provider. If you were prescribed pain medicine, take it 30 or more minutes before you do any wound care or as told byyour health care provider. General instructions Return to your normal activities as told by your health care provider. Ask your health care provider what activities are safe. Do not scratch or pick at the wound. Do not use any products that contain nicotine or tobacco, such as cigarettes and e-cigarettes. These may delay wound healing. If you need help quitting, ask your health care provider. Keep all follow-up visits as told by your health care provider. This is important. Eat a diet that includes protein, vitamin A, vitamin C, and other nutrient-rich foods to help the wound heal. ? Foods rich in protein include meat, dairy, beans, nuts, and other sources. ? Foods rich in vitamin A include carrots and dark green, leafy vegetables. ? Foods rich in vitamin C include citrus, tomatoes, and other fruits and vegetables. ? Nutrient-rich foods have protein, carbohydrates, fat, vitamins, or minerals. Eat a variety of healthy foods including vegetables, fruits, and whole grains. Contact a health care provider if: You received a tetanus shot and you have swelling, severe pain, redness, or bleeding at the injection site. Your pain is not controlled with medicine. You have redness, swelling, or pain around the wound. You have fluid or blood coming from the wound. Your wound feels warm to the touch. You have pus or a bad smell coming from the wound. You have a fever or chills. You are nauseous or you vomit. You are dizzy. Get help right away if: You have a red streak going away from your wound. The edges of the wound open up and separate. Your wound is bleeding, and the bleeding does not stop with gentle pressure. You have a rash. You faint. You have trouble breathing. Summary Always wash your hands with soap and water before changing your bandage (dressing). To help with healing, eat foods that are rich in protein, vitamin A, vitamin C, and other nutrients. Check your wound every day for signs of infection. Contact your health care provider if you suspectthat your wound is infected. This information is not intended to replace advice given to you by your health care provider. Make sure you discuss any questions you have with your health care provider. Document Released: 04/06/2009 Document Revised: 10/16/2019 Document Reviewed: 01/12/2017 [employer] Patient Education 2020 [employer] Additional Information VACCINATE! IT SAVES LIVES! Members of the community who have not yet received the COVID-19 vaccine and would like to receive it can visit one of [facility] vaccine clinics. There are many vaccine clinic locations within the [facility]. For locations and available times, please visit [email or web address].[place].gov/. It is important to note that some COVID mobile vaccine clinics are held outdoors and may be canceled in rainy or stormy conditions. To learn more about pediatric vaccinations (ages 5-11), we invite you to visit the [facility] webpage. [email or web address] learn more about the COVID-19 vaccine, we invite you to visit the CDC website for a list of frequently asked questions.https://www.cdc.gov/coronavirus/2019-ncov/vaccines/faq.html [facility] [employer] Patient Portal Access Instructions: Stay connected with your healthcare team and access your personal medical information anytime with the [email or web address] Patient Portal. Please follow the directions below to create your [email or web address] account: 1.Access the email account you provided upon registration to the hospital/physician office.2.Look for an invitation email from [facility].3.Open the email and access the invitation link: AcceptInvitation to [email or web address].4.Fill in the required breen to create your account. To access your account, visit [employer]. Click the blue button labeled Access Patient Portal and then log in with the username and password that you created in the steps above. You will be able to view your test results, lab results, a summary of your visits, upcoming appointments and more. There is also a convenient messaging option where you can send secure messages to your p [employer]ing[employer]. In addition, you will have the ability to download any documents or summaries to your computer and/or send the information securely to a physician. Remember that your healthcare information is confidential, so carefully consider who you will allowto register on the [facility] [employer] Patient Portal for access to your information. You can also access the [email or web address] Patient Portal on the [facility] [employer] priscilla. Simply click on Patient Portal and then log into your account. If you would like to receive a full copy of your medical records, please contact the [facility] Medical Records Department by calling [phone], Wednesday through Wednesday between 8 a.m. and 4:30 p.m. HOW TO SAFELY DISPOSE OF PRESCRIPTION MEDICATIONS Please use one of the following methods to safely dispose of your unused medications. 1.Use a drug disposal kit: the drug disposal pouch allows you to safely discard your old and unuseddrugs. Ask your nurse to give you one when you are discharged.2.Visit a local take-back location: Many local pharmacies and police departments have programs that collect old and unwanted prescriptiondrugs. Call your local pharmacy or go to http://Wikidot.Rebit/2V4Xm0w to find one close to you.3.Make use of household items: Use cat litter or old coffee grounds to dispose medications if other options arenot available. Mix your drugs with these household products, seal them in an airtight container andthrow it into the garbage. Call [facility]: [phone] to be sure your drugs can be disposed of in this way. Some medicines may require a different approach.4.Never flush your medications down the toilet. IF YOU HAVE BEEN PRESCRIBED AN OPIOID FOR PAIN If you have been prescribed an opioid (such as hydrocodone, oxycodone or morphine), it is critical to understand the possible side effects and risks of opioid pain medications. Even when taken as directed, opioids can have several side effects including: Tolerance, meaning you might need to take more of a medication for the same pain relief. Nausea, vomiting and/or constipation. Sleepiness, dizziness, dry mouth, confusion, depression or itching. Physical dependence, meaning you have withdrawal symptoms when a medication is stopped, can develop within a few days. KNOW YOUR RESPONSIBILITIES It is important to know exactly how much and how often to take the opioid pain medications you are prescribed. Never take opioids in higher amounts or more often than prescribed. Do not combine opioids with alcohol or other drugs that cause drowsiness, such as benzodiazepines, also known as benzos, including diazepam and alprazolam, muscle relaxants or sleep aids. Never sell or share prescription opioids. This is illegal. Store opioids in a secure place and out of reach of others (including children, family, friends and visitors). The last page of this document has been signed and retained as a CHART COPY. Signatures Patient Education Materials Wound Care, Adult Medication Leaflets doxycycline (oral/injection), acetaminophen and oxycodone My discharge plan and instructions have been reviewed and explained to me and I,JADON ALVAREZ understand my current condition and have read and understand these discharge instructions. I have received a written copy of the plan/instructions. If I have questions, I am aware that I should contact my doctor. 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 Spoke with son and patient is still in hospital. Scheduled with Dr. Edmondson on 11/04/23. [facility] Date of Service 10/22/2023 Chief Complaint Asthenia Subjective 68-year-old male with past medical history significant for atrial flutter, HFpEF, CKD Stage 3, PAWEL,DVT, BPH, AV replacement, type 2 diabetes mellitus, morbid obesity. Patient originally to [facility] emergency department on 10/03/2023 after sustaining a fall at home. Patient sustained a facial laceration and hematoma to the right lower extremity thatbecame progressively worse with blistering of the skin. He was anticoagulated with apixaban for atrial flutter which was held on admission. However, his hemoglobin dropped to 6.5 requiring PRBC transfusion. He was subsequently transferred to [facility] for further evaluation due to concern for bleeding. Interventional radiology was consulted but did not recommend hematoma drainage due to risk for repeat bleeding. He required 1 PRBC transfusion at [facility] for hemoglobin of 6.9. He was found to have a right femoral DVT that appeared to be chronic. Vascular surgery recommended ultrasound in 1 week and follow-up on an outpatient basis. They also recommended a follow-up with hematology for hypercoagulability workup. Eliquis was placed on hold. Patient was evaluated by cardiology for junctional rhythm. Coreg, Cardizem, amiodarone were held and patient was initiated on metoprolol. Patient was evaluated by therapy services with recommendations for SNF. Patient was subsequently admitted to [facility] for rehab. Patient is progressing well with therapy services with plans for discharge mid next week. Patient continues to have right lower extremity pain. It is controlled. Objective Vitals and Measurements T: 36.5 C (Oral) HR: 64(Apical) RR: 18 BP: 132/74 SpO2: 99% WT: 167.4 kg Intake and Output 7AM Yesterday to 7AM Today Intake and Output (Last 24 hours) Intake Oral Intake 620.00 Output Urine Count 1.00 Total Summary Total Intake 620.00 Total Output 0.00 Fluid Balance 620.00 Physical Exam GEN: Appears chronically ill CHEST: Normal S1 and S2. Rhythm is regular. Clear to auscultation, without rales, rhonchi, wheezing. ABD: Positive bowel sounds x 4 quads. Soft, nondistended, nontender. EXT: No significant deformity or joint abnormality. No edema. Peripheral pulses intact. NEURO: Sensation grossly intact SKIN: Skin color normal PSYCH: The mental examination revealed the patient was alert and oriented x 4 Weight Current Weight Dosing Weight: 169.2 kg (10/22/23) Current Weight: 167.4 kg (10/23/23) Dosing Weight: 164.7 kg (10/15/23) Current Weight: 169.2 kg (10/22/23) Medications Medications (20) Active Scheduled: (12) amLODIPine 5 mg tablet 5 mg 1 tab(s), Oral, qDay ascorbic acid 500 mg tablet 500 mg 1 tab(s), Oral, qDay atorvastatin 10 mg tablet 20 mg 2 tab(s), Oral, qDay bumetanide 1 mg tablet 0.5 mg 0.5 tab(s), Oral, BID docusate sodium 100 mg Capsule 100 mg 1 cap(s), Oral, BID doxycycline hyclate 100 mg Capsule 100 mg 1 cap(s), Oral, BID ferrous sulfate 325 mg Tablet 325 mg 1 tab(s), Oral, qDay gabapentin 300 mg Capsule 300 mg 1 cap(s), Oral, TID insulin glargine 100 units/ml solution 75 unit(s) 0.75 mL, Subcutaneous, qDay insulin lispro 100 units/mL Soln (3 mL) Give 0-5 units/dose, Subcutaneous, TIDAC metoprolol tartrate 25 mg tablet 12.5 mg 0.5 tab(s), Oral, BID polyethylene glycol 3350 - UD packet 17 gram(s) 15 mL, Oral, BID Continuous: (0) PRN: (8) acetaminophen 325 mg Tablet 650 mg 2 tab(s), Oral, q4h acetaminophen 325 mg Tablet 650 mg 2 tab(s), Oral, q4h acetaminophen-OXYcodone 325 mg-5 mg Tablet 2 tab(s), Oral, q4h Al hydrox/Mg hydrox/simethicone 200-200-20 mg/5 mL Susp UD 15 mL, Oral, q4h albuterol - ipratropium 2.5 mg-0.5 mg/3 mL Inhal Karen UD 3 mL, Inhalation, q4hRT guaifenesin 100 mg/5 mL Liquid SUGAR-FREE 120 mL 200 mg 10 mL, Oral, q4h melatonin 3 mg tablet 6 mg 2 tab(s), Oral, qHS menthol (Biofreeze) gel packet 1 priscilla, Topical, TID Assessment/Plan 1. Asthenia 2. Leg wound, right 3. Atrial flutter 4. DVT of leg (deep venous thrombosis) 5. (HFpEF) heart failure with preserved ejection fraction 6. Type 2 diabetes mellitus 7. PAWEL on CPAP Asthenia continue with PT and OT. Patient is progressing well. Right leg wound continue dressing changes. Atrial flutter rate controlled. Continue metoprolol 12.5 mg twice daily, anticoagulation on hold due to leg wound. DVT chronic right femoral DVT. Repeat Doppler shows chronic DVT of the right proximal femoral vein and right popliteal vein. No change from previous study. HFpEF continue Bumex 1 mg daily. Not in acute exacerbation. Type 2 diabetes mellitus- Glucose goal 180 or less and avoid hypoglycemia. ADA diet. PAWEL on CPAP continue CPAP as at home Code Status: DNR CCA, okay to intubate Plan of care discussed with patient. All questions answered. Patient verbalizes understanding is agreeable to plan of care. This dictation was performed using voice recognition software and may include grammatical and/or spelling errors. Anticipated Date of Discharge 10/27/23 Time Spent 25 minutes Digitally Signed by MIRELA OLIVO on 10/23/2023 04:41 PM [facility]04-12-2024 Note* Exam Date Time Procedure Performing Provider Status 10/22/23 11:03 AM VL Venous US/Doppler One Leg (for DVT). Auth (Verified) [facility] 04-08-2024 Note* Exam Date Time Procedure Performing Provider Status 10/18/23 8:36 AM VL Venous US/Doppler Both Legs(for DVT) Auth (Verified) [facility] 04-07-2024 Note Date of Service 10/17/2023 Chief Complaint weakness, right leg pain Subjective Patient seen and evaluated this morning while resting in bed. He states that he is not doing well this morning. He reports that he did not sleep well last night. Once he did fall asleep, he was awakened by respiratory therapy to give him a breathing treatment. Patient is on Symbicort at home and the interchange was budesonide BIDRT and albuterol QIDRT. Will stop albuterol and change it to duonebsPRN. Patient can request a breathing treatment if he needs one so he is not disturbed at night. Patient complaining that his bowels have not moved, however, he had an extremely large bowel movement on Wednesday. Will continue current bowel medications as scheduled. Patient was able to walk a good distance yesterday - a total of 172 feet. He reported that he was short of breath with walking but that is not a new thing for him. He has been for quite some time. Offered to have therapy place patient on supplemental oxygen with ambulation but he states he does not wear it at home with activity. Patient advised that he may just need it until he builds up his endurance. Patient complaining of some diz ziness this morning when he got up to the bedside commode but it is better now. Nursing felt that patient was unsteady when he got up and patient was advised not to get up on his own. Vital signs have been stable. We can check some orthostatic vitals to make sure he is not dropping his blood pressure when he gets up. Patient advised that his hemoglobin is trending up slowly. We will recheck his labs again on Wednesday to make sure that trend continues. He denies any fever, chills, cough, chest pain, abdominal pain, nausea or dysuria. All questions answered. Notified later that orthostatic vitals were negative. Patient questioned the nurse as to why she was doing those vital signs and, after told because he said he was dizzy, he stated I was just drowsyand not really dizzy. Will monitor this. Objective Vitals and Measurements T: 36.5 C (Oral) TMIN: 36.5 C (Oral) TMAX: 36.8 C (Oral) HR: 69(Apical) RR: 18 BP: 154/71 SpO2: 95% Intake and Output 7AM Yesterday to 7AM Today Intake and Output (Last 24 hours) Intake Oral Intake 1160.00 Output Stool Count 0.00 Urine Count 4.00 Emesis Count 0.00 Total Summary Total Intake 1160.00 Total Output 0.00 Fluid Balance 1160.00 Physical Exam General: No acute distress. Patient is alert, chronically ill-appearing. Skin: No rash. Skin is warm, dry and intact. HEENT: Head is normocephalic, traumatic. Ecchymosis around right eye resolving. Pupils are equal, round and reactive. Neck: Supple. No lymphadenopathy, thyromegaly. Lungs: Bilaterally clear but diminished without crepitation or wheeze. Unlabored. Heart: Heart is regular rhythm, S1, S2. No murmurs, gallops or rubs. Abdomen: Abdomen is soft, nontender, obese. Bowels sounds present in all quadrants. Extremities: No clubbing, cyanosis; moderate edema noted in both legs. Peripheral pulses palpable. No calf tenderness. Right lateral lower extremity remains edematous. Two upper blisters have drainedand wound bed appears to blackened. Right lower lateral blister still partially fluid-filled with bl ackened wound bed. Neurological: Patient is awake and alert to person, place and time. Following simple commands, moving all extremities. Weight Current Weight Dosing Weight: 164.7 kg (10/15/23) Current Weight: 169.3 kg (10/16/23) Dosing Weight: 170.1 kg (10/13/23) Medications Medications (19) Active Scheduled: (12) amLODIPine 5 mg tablet 5 mg 1 tab(s), Oral, qDay ascorbic acid 500 mg tablet 500 mg 1 tab(s), Oral, qDay atorvastatin 10 mg tablet 20 mg 2 tab(s), Oral, qDay budesonide 0.5 mg/2 mL Susp UD 0.5 mg 2 mL, Nebulized, BIDRT bumetanide 1 mg tablet 0.5 mg 0.5 tab(s), Oral, BID docusate sodium 100 mg Capsule 100 mg 1 cap(s), Oral, BID ferrous sulfate 325 mg Tablet 325 mg 1 tab(s), Oral, qDay gabapentin 300 mg Capsule 300 mg 1 cap(s), Oral, TID insulin glargine 100 units/ml solution 75 unit(s) 0.75 mL, Subcutaneous, qDay insulin lispro 100 units/mL Soln (3 mL) Give 0-5 units/dose, Subcutaneous, TIDAC metoprolol tartrate 25 mg tablet 12.5 mg 0.5 tab(s), Oral, BID polyethylene glycol 3350 - UD packet 17 gram(s) 15 mL, Oral, BID Continuous: (0) PRN: (7) acetaminophen 325 mg Tablet 650 mg 2 tab(s), Oral, q4h acetaminophen 325 mg Tablet 650 mg 2 tab(s), Oral, q4h acetaminophen-OXYcodone 325 mg-5 mg Tablet 2 tab(s), Oral, q4h Al hydrox/Mg hydrox/simethicone 200-200-20 mg/5 mL Susp UD 15 mL, Oral, q4h guaifenesin 100 mg/5 mL Liquid SUGAR-FREE 120 mL 200 mg 10 mL, Oral, q4h melatonin 3 mg tablet 6 mg 2 tab(s), Oral, qHS menthol (Biofreeze) gel packet 1 priscilla, Topical, TID Lab Results No 36 Hour Lab Data EKG No qualifying data available. Assessment/Plan 1. Asthenia Consult PT and OT - following. director of environmental services following for discharge planning. 2. Leg wound, right Adaptic to be applied daily. Right lower extremity evaluated today and appears to be improving slowly. 3. Atrial flutter Chronic, rate controlled. Continue metoprolol 12.5 mg twice daily. Amiodarone, Coreg and Cardizem stopped by cardiology over at [facility]. Anticoagulation currently on hold until patient is evaluated by vascular surgery and orthopedics. 4. DVT of leg (deep venous thrombosis) Right femoral DVT, appeared to be chronic. Repeat bilateral lower extremity venous dopplers to be done tomorrow per vascular recommendation. 5. Heart failure Chronic, with preserved EF, stable. Last echocardiogram 03/2022. Continue Bumex 1 mg daily. 6. Diabetes mellitus type 2 Chronic, controlled. Glucose goal 180 or less and avoid hypoglycemia. Corrective sliding scale insulin. ADA diet. 7. PAWEL on CPAP Chronic. Patient has CPAP at home but has not been brought in by son. May use our CPAP at bedtime or wear oxygen as needed. DVT prophylaxis with ambulation. Holding off on chemical anticoagulation due to large hematoma of right lower extremity secondary to fall on eliquis. Awaiting recommendation by orthopedics and vascular surgery on resuming eliquis. Code status: DNRCCA - may intubate. Labs, diagnostic test and progress notes reviewed as noted in HPI. Plan of care discussed with patient. All questions answered. Patient verbalizes understanding and is agreeable with plan of care. This case was discussed with collaborating physician, Dr. Rob Montenegro. Anticipated Date of Discharge Unsure at this point. Time Spent 30 minutes spent reviewing past diagnostic tests, reviewing lab results, vital sign trends, medicalhistory, reviewing medications and ordering home medications, examining patient, discussed plan of care with nursing, collaborating with physician, and documenting in chart. CPT#[id number] Digitally Signed by WU WADSWORTH on 10/17/2023 01:41 PM [facility]04-04-2024 Evaluation + Plan noteExtracted from: Title:History and Physical Author:WU WADSWORTH Date:10/14/23 1. Asthenia Consult PT and OT. Prior to patient being transferred to [facility] patient was going to be discharged to [facility] as he had low motivation to participate in therapy. He was however having a great deal of pain from hematoma and fall at that time. 2. Leg wound, right Adaptic to be applied daily. 3. Atrial flutter Chronic, rate controlled. Continue metoprolol 12.5 mg twice daily. Amiodarone, Coreg and Cardizem stopped by cardiology over at [facility]. Anticoagulation currently on hold until patient is evaluated by vascular surgery and hematology. 4. DVT of leg (deep venous thrombosis) Right femoral DVT, appeared to be chronic. Patient will need to have an ultrasound done in 1 week - order in system. 5. Heart failure Chronic, with preserved EF. Last echocardiogram 03/2022. Continue Bumex 1 mg daily. 6. Diabetes mellitus type 2 Glucose goal 180 or less and avoid hypoglycemia. Corrective sliding scale insulin. ADA diet. 7. PAWEL on CPAP Chronic. Patient has CPAP at home but has not been brought in by son. May use our CPAP at bedtime or wear oxygen. DVT prophylaxis with ambulation. Code status: DNRCCA - may intubate. Seen by palliative care at [facility]. Labs, diagnostic test and progress notes reviewed as noted in HPI. Plan of care discussed with patient. All questions answered. Patient verbalizes understanding and is agreeable with plan of care. This case was discussed with collaborating physician, Dr. Rob Montenegro. 45 minutes spent reviewing past diagnostic tests, reviewing lab results, vital sign trends, medical history, reviewing medications and ordering home medications, examining patient, collaborating with physician, and documenting in chart. CPT #49214 Future Appointments Appointment Date:11/01/2023 11:15:00 AM Scheduled Provider:GAVINO AG Location:[facility] Appointment Type:[facility] Hospital Follow Up Appointment Date:12/30/2023 09:00:00 AM Scheduled Provider: Location:[facility] Appointment Type:MEDS - Diabetic Individual Visit Future Scheduled Tests Laboratory* Basic Metabolic Panel 02/13/23 * Prostate Specific Antigen 02/13/23 * Prostate Specific Antigen 10/08/22 * Complete Blood Count 10/08/22 * Lipid Profile 10/08/22 * Albumin/Creatinine Ratio, Random Urine 06/11/23 * Complete Metabolic Panel 10/08/22 [facility] 04-04-2024 Note Date of Service 10/14/2023 Chief Complaint weakness History of Present Illness Patient is a 68-year-old male, who follows with Kellie Benites CNP with past medical history significant for atrial flutter, HFpEF, CKD Stage 3, PAWEL, DVT, BPH, AV replacement, type 2 diabetes mellitus, morbid obesity, presented originally to [facility] emergency department on 10/03/2023 after sustaining a fall at home. In the fall, patient sustained a facial laceration and hematoma to the right lower extremity that became progressively worse with blistering of the skin. He was anticoagulated with apixaban for atrial flutter which was held on admission. However, his hemoglobin dropped to 6.5 requiring PRBC transfusion. He was subsequently transferred to [facility] for further evaluation due to concern for bleeding. Interventional radiology was consulted but didnot recommend hematoma drainage due to risk for repeat bleeding. He required 1 PRBC transfusion at [facility] for hemoglobin of 6.9. He was found to have a right femoral DVT that appeared to be chronic. Vascular surgery recommended ultrasound in 1 week and follow-up on an outpatient basis. They also recommended a follow-up with hematology for hypercoagulability workup. Eliquis was placed on hold. Patient was evaluated by cardiology for junctional rhythm. Coreg, Cardizem, amiodarone were held and patient was initiated on metoprolol. Patient was evaluated by therapy services with recommendations for SNF. Patient was subsequently admitted to [facility] for rehab. Patient seen and evaluated this morning while resting in recliner. He states that he is doing well this morning other than the right leg. He does not feel that it is particularly painful while just sitting but pain increases when he is up on it. He is only bearing partial weight on that leg due to pain. Patient states he has not had a bowel movement for a few days and that has been an ongoing problem for him since admission. Will check over patient's orders and make sure that we have medications in place to facilitate improved bowel function. Patient denies any fever, chills, cough, shortnessof breath, chest pain, abdominal pain, nausea or dysuria. All questions answered. Review of Systems Review of Systems: Reviewed in detail, including general health, HEENT, cardiovascular, respiratory, gastrointestinal, genitourinary, endocrine, musculoskeletal, neurologic, vascular, skin, and psychiatric. All are negative except for those listed in the History of Present Illness. Physical Exam Vitals and Measurements T: 36.8 C (Oral) TMIN: 36.8 C (Oral) TMAX: 37.0 C (Axillary) HR: 63(Monitored) RR: 18 BP: 151/75 SpO2: 91% HT: 188 cm WT: 170.1 kg BMI: 48.13 Weight Dosing Weight: 170.1 kg (10/13/23) Dosing Weight: 170.1 kg (10/13/23) General: No acute distress. Patient is alert and appropriate. Skin: No rash. Skin is warm, dry and intact. HEENT: Head is normocephalic, traumatic. Pupils are equal, round and reactive. Ecchymosis and edemapresent around right eye but improved from previous admission. Neck: Supple. No lymphadenopathy, thyromegaly. Lungs: Bilaterally clear but diminished without crepitation or wheeze. Unlabored. Heart: Heart is regular rhythm, S1, S2. No murmurs, gallops or rubs. Abdomen: Abdomen is firm, nontender, obese. Bowels sounds present in all quadrants. Extremities: No clubbing, cyanosis. Peripheral pulses palpable. No calf tenderness. 4+ edema noted to right lower extremity, 1+ to left lower extremity. Neurological: Patient is awake and alert to person, place and time. Following simple commands, moving all extremities. Lab Results No 36 Hour Lab Data Assessment/Plan 1. Asthenia Consult PT and OT. Prior to patient being transferred to [facility] patient was going to be discharged to [facility] as he had low motivation to participate in therapy. He was however having a great deal of pain from hematoma and fall at that time. 2. Leg wound, right Adaptic to be applied daily. 3. Atrial flutter Chronic, rate controlled. Continue metoprolol 12.5 mg twice daily. Amiodarone, Coreg and Cardizem stopped by cardiology over at [facility]. Anticoagulation currently on hold until patient is evaluated by vascular surgery and hematology. 4. DVT of leg (deep venous thrombosis) Right femoral DVT, appeared to be chronic. Patient will need to have an ultrasound done in 1 week -order in system. 5. Heart failure Chronic, with preserved EF. Last echocardiogram 03/2022. Continue Bumex 1 mg daily. 6. Diabetes mellitus type 2 Glucose goal 180 or less and avoid hypoglycemia. Corrective sliding scale insulin. ADA diet. 7. PAWEL on CPAP Chronic. Patient has CPAP at home but has not been brought in by son. May use our CPAP at bedtime or wear oxygen. DVT prophylaxis with ambulation. Code status: DNRCCA - may intubate. Seen by palliative care at [facility]. Labs, diagnostic test and progress notes reviewed as noted in HPI. Plan of care discussed with patient. All questions answered. Patient verbalizes understanding and is agreeable with plan of care. This case was discussed with collaborating physician, Dr. Rob Montenegro. 45 minutes spent reviewing past diagnostic tests, reviewing lab results, vital sign trends, medicalhistory, reviewing medications and ordering home medications, examining patient, collaborating withphysician, and documenting in chart. CPT #49632 Problem List/Past Medical History Ongoing Acute embolism and thrombosis of deep vein of left distal leg Aftercare following surgery AORTIC VALVE DISEASE Apnea, sleep Atrial flutter 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 Left, 6.6-cm, LP, posterior. *MMP-morbid obesity, CKD, DM, HTN, CHF, DVT/PE. *BT-Coumadin, ASA. Right hip pain S/P AVR (aortic valve replacement) SOB (shortness of breath) Historical Bowel infarction Procedure/Surgical History Cardioversion: 2022 Repair of inguinal hernia Bladder IVC - Insertion of inferior vena caval filter IVC - Removal of inferior vena caval filter Colectomy Aortic valve Medications Home Medications (17) Active amLODIPine 5 mg oral tablet 5 mg = 1 tab(s), Oral, qDay atorvastatin 20 mg oral tablet 20 mg = 1 tab(s), Oral, qDay budesonide-formoterol 160 mcg-4.5 mcg/inh Inhaler 2 puff(s), Inhalation, Daily bumetanide 1 mg oral tablet 0.5 mg = 0.5 tab(s), Oral, BID gabapentin 300 mg oral capsule 300 mg = 1 cap(s), Oral, TID glucose 50% intravenous solution 12.5 gram(s) = 25 mL, PRN, IV Push, AsDirected HumaLOG 100 units/mL subcutaneous solution Give 0-5 units/dose, Subcutaneous, TIDAC IRON (ferrous sulfate 325 mg) 65 mg oral tablet 325 mg = 1 tab(s), Oral, qDay Lantus 100 units/mL10 ml vial solution 75 unit(s), Subcutaneous (INT), qDay Lopressor 12.5 mg = 1 EA, Oral, BID melatonin 3 mg oral tablet 3 mg = 1 tab(s), PRN, Oral, qHS MiraLax oral powder for reconstitution , Oral, BID O2 Percocet 325/5 2 tab(s), PRN, Oral, q4h Tylenol 325 mg oral capsule 650 mg, PRN, Oral, q4h Vitamin C 500 mg oral tablet 500 mg = 1 tab(s), Oral, qDay Zofran 4 mg = 2 mL, PRN, IV Push, q4h Allergies Nuprin (Unknown) misc non-codified allergy (unknown) Social History Smoking Status - 11/02/2017 Former smoker Alcohol - Denies Alcohol Use, 11/02/2017 Use: Past., 10/13/2023 Home/Environment Living situation: Home/Independent. Domestic Concerns: None. 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 Current HomeTreatments Oxygen therapy, CPAP. Professional Skilled Services or Special Community Resources None., 10/13/2023 Nutrition/Health Type of diet: Diabetic, Just started seeing nutrionist at [facility], doesn't eat much fruits or veggies. Drinks milk.. Caffeine intake amount: coffee once a week. Appetite Good. Eating Difficulties None., 10/13/2023 Substance Abuse - Denies Substance Abuse, 11/02/2017 Use: Never., 10/13/2023 Tobacco Nicotine Use: Former smoker, quit more than 30 days ago. Type: Cigarettes. Number of years: 30. Stopped at age: 45 Years., 10/13/2023 Family History Bladder cancer: Negative: Mother, Father and Sister. Cancer: Brother. Diabetes mellitus: Mother. Prostate cancer: Negative: Mother, Father and Brother. Renal cancer: Brother.Negative: Mother, Father and Sister. Sleep apnea: Sister. Immunizations pneumococcal 13-valent conjugate vaccine: 0.5 unknown unit (06/16/17) pneumococcal 23-valent vaccine(Pneumovax: 0.5 unknown unit (06/13/18) pneumococcal 23-valent vaccine(Pneumovax: 0 unknown unit (07/14/16) pneumococcal 23-valent vaccine(Pneumovax: 0 unknown unit (07/10/16) pneumococcal 23-valent vaccine(Pneumovax: 0 unknown unit (05/08/99) SARS-CoV-2 (COVID-19) mRNA-1273 vaccine: 50 mcg (03/05/22) SARS-CoV-2 (COVID-19) mRNA-1273 vaccine: 50 mcg (06/23/21) SARS-CoV-2 mRNA (tozinameran) vaccine: 0.5 unknown unit (10/26/20) SARS-CoV-2 mRNA (tozinameran) vaccine: 0.5 unknown unit (10/05/20) tetanus/diphth/pertuss (Tdap) adult/adol: 0.5 mL (01/04/23) zoster vaccine live: 1 unknown unit (06/16/17) Code Status Code Status - Ordered -- 10/13/23 19:42:00 EDT, DNRCC-Arrest Intubate & Mechanical Vent, Constant Order Digitally Signed by WU WADSWORTH on 10/14/2023 09:52 AM [facility]24 Cardiology Progress note Date of Service 10/13/2023 Subjective Patient seen and examined sitting up in chair this morning. Reports no acute complaints or overnight concerns. Objective Vitals and Measurements T: 36.9 C (Oral) TMIN: 36.5 C (Oral) TMAX: 36.9 C (Oral) HR: 62 RR: 18 BP: 169/64 SpO2: 95% Intake and Output 7AM Yesterday to 7AM Today Intake and Output (Last 24 hours) Intake Oral Intake 1000.00 Output Urine Voided 950.00 Stool Count 0.00 Urine Count 2.00 Total Summary Total Intake 1000.00 Total Output 950.00 Fluid Balance 50.00 Physical Exam General Appearance: Middle aged male, receiving supplemental O2 via nasal cannula Head: Normocephalic, right periorbital ecchymosis noted EENT: Sclera anicteric, oral mucosa moist, no pharyngeal erythema Neck: Supple, no JVD Cardiac: Regular rate and rhythm, no murmur Respiratory: Clear to auscultation bilaterally, no wheeze or crackles Abdomen: Soft, nontender to deep palpation, normoactive bowel sounds Musculoskeletal: No joint deformity, Right lower extremity: Ecchymosis noted extending up along the entire aspect of the leg, with x 3 blisters actively leading with underlying chronic venous changes. Tenderness appreciated on palpation. Left lower extremity: Chronic venous changes noted with hyperpigmentation Neurological: Alert and oriented x3, no focal deficit Skin: Warm and dry, no rash Psychiatric: Normal mood and affect Weight Dosing Weight: 169 kg (10/07/23) Medications Medications (19) Active Scheduled: (12) albuterol 0.083% Soln UD (2.5mg/3 mL) 2.5 mg 3 mL, Inhalation, QIDRT amLODIPine 5 mg tablet 5 mg 1 tab(s), Oral, qDay ascorbic acid 500 mg tablet 500 mg 1 tab(s), Oral, qDay atorvastatin 20 mg tablet 20 mg 1 tab(s), Oral, qDay budesonide 0.5 mg/2 mL Susp UD 0.5 mg 2 mL, Inhalation, BIDRT bumetanide 0.5 mg tablet 0.5 mg 1 tab(s), Oral, BID gabapentin 300 mg Capsule 300 mg 1 cap(s), Oral, TID insulin glargine 75 unit(s) 0.75 mL, Subcutaneous (INT), qDay insulin lispro 100 units/mL Soln (3 mL) Give 0-5 units/dose, Subcutaneous, TIDAC metoprolol tartrate 12.5 mg ( HALF-TAB ) 12.5 mg 1 EA, Oral, BID polyethylene glycol 3350 - UD packet 17 gram(s) 15 mL, Oral, qDay polyethylene glycol 3350 - UD packet 17 gram(s) 15 mL, Oral, BID Continuous: (0) PRN: (7) acetaminophen 325 mg Tablet 650 mg 2 tab(s), Oral, q4h acetaminophen-OXYcodone 325 mg-5 mg Tablet 2 tab(s), Oral, q4h dextrose 50% Solution Disp syringe 50 mL 12.5 gram(s) 25 mL, IV Push, AsDirected melatonin 3 mg tablet 3 mg 1 tab(s), Oral, qHS melatonin 3 mg tablet 3 mg 1 tab(s), Oral, qHS ondansetron 2 mg/ 1 mL 2 mL INJ 4 mg 2 mL, IV Push, q4h polyethylene glycol 3350 - UD packet 17 gram(s) 15 mL, Oral, qDay Lab Results No 36 Hour Lab Data EKG No qualifying data available. Assessment/Plan Paroxysmal A-fib Previous Junctional rhythm Atrial flutter s/p cardioversion HFpEF Comorbidities :atrial flutter s/p cardioversion on 01/26/2023,S/P AVR in 2016, HFpEF, T2DM, CKD stage III, morbid obesity, PAWEL on CPAP, history of left 6.6 cm renal mass. PLAN: Patient is hemodynamically stable, denies any chest pain or discomfort. Continue with 12.5 mg p.o. twice daily. With hold parameters if heart rate < 50 Eliquis has been held in light of left lower extremity hematoma and recent drop in Hb. If risk of restarting anticoagulation outweighs benefits then patient may be a candidate for watchman's device. Altaf vas 2 score 6. Patient will need timely reevaluation to determine suitability of resuming Eliquis. Patient is at high risk for stroke [9.7% stroke risk per year]. Keep potassium >4 and magnesium > 2 Thank you for allowing us to take part in the management of this patient. Cardiology will now sign off. Case and management discussed with attending , please see addendum for any further changes to the plan. Digitally Signed by JAQUELIN WORTHY MD on 10/13/2023 05:08 PM Digitally Signed by NEPTALI LIZAMA [id number] Discharge instructions Patient Education 10/13/2023 11:50:41 Bradycardia, Adult Bradycardia, Adult Bradycardia is a cyfmye-wzqk-heofly heartbeat. A normal resting heart rate for an adult ranges from60 to 100 beats per minute. With bradycardia, the resting heart rate is less than 60 beats per minute. Bradycardia can prevent enough oxygen from reaching certain areas of your body when you are active.It can be serious if it keeps enough oxygen from reaching your brain and other parts of your body. Bradycardia is not a problem for everyone. For some healthy adults, a slow resting heart rate is normal. What are the causes? This condition may be caused by: A problem with the heart, including: ?A problem with the heart's electrical system, such as a heart block. With a heart block, electrical signals between the chambers of the heart are partially or completely blocked, so they are not able to work as they should. ?A problem with the heart's natural pacemaker (sinus node). ?Heart disease. ?A heart attack. ?Heart damage. ?Lyme disease. ?A heart infection. ?A heart condition that is present at (congenital heart defect). Certain medicines that treat heart conditions. Certain conditions, such as hypothyroidism and obstructive sleep apnea. Problems with the balance of chemicals and other substances, like potassium, in the blood. Trauma. Radiation therapy. What increases the risk? You are more likely to develop this condition if you: Are age 65 or older. Have high blood pressure (hypertension), high cholesterol (hyperlipidemia), or diabetes. Drink heavily, use tobacco or nicotine products, or use drugs. What are the signs or symptoms? Symptoms of this condition include: Light-headedness. Feeling faint or fainting. Fatigue and weakness. Trouble with activity or exercise. Shortness of breath. Chest pain (angina). Drowsiness. Confusion. Dizziness. How is this diagnosed? This condition may be diagnosed based on: Your symptoms. Your medical history. A physical exam. During the exam, your health care provider will listen to your heartbeat and check your pulse. To confirm the diagnosis, your health care provider may order tests, such as: Blood tests. An electrocardiogram (ECG). This test records the heart's electrical activity. The test can show how fast your heart is beating and whether the heartbeat is steady. A test in which you wear a portable device (event recorder or Holter monitor) to record your heart's electrical activity while you go about your day. An exercise test. How is this treated? Treatment for this condition depends on the cause of the condition and how severe your symptoms are. Treatment may involve: Treatment of the underlying condition. Changing your medicines or how much medicine you take. Having a small, battery-operated device called a pacemaker implanted under the skin. When bradycardia occurs, this device can be used to increase your heart rate and help your heart beat in a regularrhythm. Follow these instructions at home: Lifestyle Manage any health conditions that contribute to bradycardia as told by your health care provider. Follow a heart-healthy diet. A virtual reality specialist (dietitian) can help educate you about healthy food options and changes. Follow an exercise program that is approved by your health care provider. Maintain a healthy weight. Try to reduce or manage your stress, such as with yoga or meditation. If you need help reducing stress, ask your health care provider. Do not use any products that contain nicotine or tobacco, such as cigarettes, e- cigarettes, and chewing tobacco. If you need help quitting, ask your health care provider. Do not use illegal drugs. Limit alcohol intake to no more than 1 drink a day for non women and 2 drinks a day for men. Be aware of how much alcohol is in your drink. In the [place] one drink equals one 12 oz bottle of beer (355 mL), one 5 oz glass of wine (148 mL), or one 1 oz glass of hard liquor (44 mL). General instructions Take dnlm-vaf-gvqwgmy and prescription medicines only as told by your health care provider. Keep all follow-up visits as told by your health care provider. This is important. How is this prevented? In some cases, bradycardia may be prevented by: Treating underlying medical problems. Stopping behaviors or medicines that can trigger the condition. Contact a health care provider if you: Feel light-headed or dizzy. Almost faint. Feel weak or are easily fatigued during physical activity. Experience confusion or have memory problems. Get help right away if: You faint. You have: ?An irregular heartbeat (palpitations). ?Chest pain. ?Trouble breathing. Summary Bradycardia is a zylytb-fwts-dicqql heartbeat. With bradycardia, the resting heart rate is less than 60 beats per minute. Treatment for this condition depends on the cause. Manage any health conditions that contribute to bradycardia as told by your health care provider. Do not use any products that contain nicotine or tobacco, such as cigarettes, e- cigarettes, and chewing tobacco, and limit alcohol intake. Keep all follow-up visits as told by your health care provider. This is important. This information is not intended to replace advice given to you by your health care provider. Make sure you discuss any questions you have with your health care provider. Document Released: 03/20/2003 Document Revised: 01/09/2019 Document Reviewed: 12/07/2018 [employer] Patient Education 2020 [employer]. 10/13/2023 11:50:34 Hematoma, Odub-rv-Ttmh Hematoma A hematoma is a collection of blood. A hematoma can happen: Under the skin. In an organ. In a body space. In a joint space. In other tissues. The blood can thicken (clot) to form a lump that you can see and feel. The lump is often hard and may become sore and tender. The lump can be very small or very big. Most hematomas get better in a few days to weeks. However, some hematomas may be serious and need medical care. What are the causes? This condition is caused by: An injury. Blood that leaks under the skin. Problems from surgeries. Medical conditions that cause bleeding or bruising. What increases the risk? You are more likely to develop this condition if: You are an older adult. You use medicines that thin your blood. What are the signs or symptoms? Symptoms depend on where the hematoma is in your body. If the hematoma is under the skin, there is: ?A firm lump on the body. ?Pain and tenderness in the area. ?Bruising. The skin above the lump may be blue, dark blue, purple-red, or yellowish. If the hematoma is deep in the tissues or body spaces, there may be: ?Blood in the stomach. This may cause pain in the belly (abdomen), weakness, passing out (fainting), and shortness of breath. ?Blood in the head. This may cause a headache, weakness, trouble speaking or understanding speech, or passing out. How is this diagnosed? This condition is diagnosed based on: Your medical history. A physical exam. Imaging tests, such as ultrasound or CT scan. Blood tests. How is this treated? Treatment depends on the cause, size, and location of the hematoma. Treatment may include: Doing nothing. Many hematomas go away on their own without treatment. Surgery or close monitoring. This may be needed for large hematomas or hematomas that affect the body's organs. Medicines. These may be given if a medical condition caused the hematoma. Follow these instructions at home: Managing pain, stiffness, and swelling If told, put ice on the area. ?Put ice in a plastic bag. ?Place a towel between your skin and the bag. ?Leave the ice on for 20 minutes, 2 3 times a day for the first two days. If told, put heat on the affected area after putting ice on the area for two days. Use the heat source that your doctor tells you to use. This could be a moist heat pack or a heating pad. To do this: ?Place a towel between your skin and the heat source. ?Leave the heat on for 20 30 minutes. ?Remove the heat if your skin turns bright red. This is very important if you are unable to feel pain, heat, or cold. You may have a greater risk of getting burned. Raise (elevate) the affected area above the level of your heart while you are sitting or lying down. Wrap the affected area with an elastic bandage, if told by your doctor. Do not wrap the bandage tootightly. If your hematoma is on a leg or foot and is painful, your doctor may give you crutches. Use them astold by your doctor. General instructions Take gfui-yil-yiskgmr and prescription medicines only as told by your doctor. Keep all follow-up visits as told by your doctor. This is important. Contact a doctor if: You have a fever. The swelling or bruising gets worse. You start to get more hematomas. Get help right away if: Your pain gets worse. Your pain is not getting better with medicine. Your skin over the hematoma breaks or starts to bleed. Your hematoma is in your chest or belly and you: ?Pass out. ?Feel weak. ?Become short of breath. You have a hematoma on your scalp that is caused by a fall or injury, and you: ?Have a headache that gets worse. ?Have trouble speaking or understanding speech. ?Become less alert or you pass out. Summary A hematoma is a collection of blood in any part of your body. Most hematomas get better on their own in a few days to weeks. Some may need medical care. Follow instructions from your doctor about how to care for your hematoma. Contact a doctor if the swelling or bruising gets worse, or if you are short of breath. This information is not intended to replace advice given to you by your health care provider. Make sure you discuss any questions you have with your health care provider. Document Released: 08/05/2005 Document Revised: 12/01/2018 Document Reviewed: 12/01/2018 [employer] Patient Education 2020 [employer] Follow Up Care 10/06/2023 14:54:52 With:ANIRUDH SZYMANSKI DO, Orthopedic Address: [address] [place] [phone] When:Within 2 Week(s) Comments:call for follow up appointment with orthopedics for re-evaluation of hematoma. With:[facility], , skilled; ambulance transport arranged for 6:30pm via [place], Ext. [phone]. Address:Unknown When:1-2 days With:NAHED MASON MD Address: [address] [facility] [address] [facility] [place] [address]- When:Within 2 Week(s) Comments:Call for follow up appointment with cardiology. With:KELLIE BENITES Address: [address] [place] [address] [phone] When:5 to 7 days Comments:Call for follow-up appointment with your primary care provider. With:JACINTA MARIANO MD, [facility], Surgery, Vascular Surgeons Address: [address] [facility] [address] [facility] [place] [address] [phone] When:Within 1 Week(s) Comments:Call for follow up appointment with vascular surgery. With:SANG PARSONS MD Address: [address] [place] [address] Hematology [place] [address]- [phone] When:Within 2 Week(s) Comments:Call for appointment with hematology for further evaluation of recurrent blood clots. [facility] 04-03-2024 Note Discharge Instructions Thank you for allowing [facility] to assist you with your healthcare needs. The following is importantdischarge information regarding your hospital visit. Your Care Team KELLIE BENITES Your Diagnosis Diabetes mellitus type 2 What to do next Instructions From Your Doctor Discharge to [facility] bed. Contact your primary care provider for posthospital follow-up appointment. Follow-up with hematology for continued evaluation of recurrent lower extremity blood clotsfor hypercoagulability workup. Recommend repeat ultrasound in 1 week of the right lower extremity for continued evaluation of DVT and the right lower extremity. Follow-up with cardiology for continued evaluation of low heart rate. Follow-up with vascular surgery for continued evaluation. Continue holding aspirin and Eliquis until cleared by vascular surgery to restart anticoagulation. Your Cardizem, amiodarone, and Coreg were stopped during her hospitalization for low heart rate. You were started on metoprolol for rate control. Scheduled Follow-Up Appointments Appointment Type When With Where Contact InformationNUT Diet Visit Individual 10/22/2023 08:30 AM EDT [facility] [phone] PC OV 10/22/2023 09:30 AM EDT KELLIE BENITES [address] [phone] MEDS - Diabetic Individual Visit 12/30/2023 09:00 AM EDT [facility] [phone] Follow Up Appointments Follow Up with [facility], , skilled; ambulance transport arranged for 6:30pm via [place], Ext. [phone]. When Within 1-2 days Follow Up with NAHED MASON MD When In 2 weeks Why: Call for follow up appointment with cardiology. Where: [address] [facility] [address] [facility] [place] [address]- Follow Up with KELLIE BENITES When Within 5 to 7 days Why: Call for follow-up appointment with your primary care provider. Where: [address] [facility] [place] [phone] Follow Up with JACINTA MARIANO MD, [facility], Surgery, Vascular Surgeons When In 1 week Why: Call for follow up appointment with vascular surgery. Where: [address] [facility] [address] [facility] [place] [address] [phone] Follow Up with SANG PARSONS MD When In 2 weeks Why: Call for appointment with hematology for further evaluation of recurrent blood clots. Where: [address] [place] [address] Hematology [place] [address]- [phone] The Following Activity and Diet Have Been Ordered for You Transfer of Care Activity - Ordered -- As instructed by therapy, 10/13/23 11:55:00 EDT Transfer of Care Diet - Ordered -- Type of Diet: Regular Diet, ADA diet, 10/13/23 11:55:00 EDT The Following Equipment Has Been Ordered for You No qualifying data available. The Following Treatments Have Been Ordered for You Discharge Labs No qualifying data available. Discharge Radiology No qualifying data available. Other Therapies Transfer of Care OT - Ordered -- Reason for therapy: weakness post fall, 10/13/23 11:55:00 EDT Transfer of Care PT - Ordered -- Reason for therapy: weakness post fall, 10/13/23 11:55:00 EDT Post Acute Orders Transfer of Care Admission Level of Care - Ordered -- Level of Care SNF, 10/13/23 13:02:56 EDT Transfer of Care Code Status - Ordered -- DNRCC-Arrest Intubate & Mechanical Vent, Constant Order Transfer of Care Communication Order - Ordered -- Expect less than 30 day stay., 10/13/23 13:03:04 EDT Transfer of Care Orders Electronically Signed By - Ordered -- 10/13/23 11:55:00 EDT, ROB MONTENEGRO DO Transfer of Care Prognosis - Ordered -- Fair, Patient Aware: Yes Transfer of Care Rehab Potential - Ordered -- Rehab potential fair, 10/13/23 11:55:59 EDT Someone Will Contact You Regarding These Home Health Referrals No home referrals have been ordered for you. No one will call you. Allergies Nuprin (Unknown) misc non-codified allergy (unknown) Medications Please ask your primary doctor or pharmacist before taking any other medication not listed, including over the counter drugs, herbal medications, vitamins and or supplements as they may interact withyour home medications. What How Much When Why Instructions Last Dose New acetaminophen (Tylenol 325 mg oral capsule) 650 Milligram by mouth Every 4 hours as needed for Pain, scale 1-3 New acetaminophen-oxyCODONE (Percocet 325/ 5) 2 tab(s) by mouth Every 4 hours as needed for Pain, scale 4-6 New gabapentin (gabapentin 300 mg oral capsule) 1 cap by mouth Three (3) times a day New glucose (glucose 50% intravenous solution) 25 Milliliter IV Push As Directed as needed for Hypoglycemia New insulin glargine (Lantus 100 units/ mL10 ml vial solution) 75 unit(s) Subcutaneous (INT) Once a day New insulin lispro (HumaLOG) (HumaLOG 100 units/ mL subcutaneous solution) Give 0-5 units/dose Subcutaneous Three (3) times a day before meals New melatonin (melatonin 3 mg oral tablet) 1 tab(s) by mouth Daily at bedtime as needed for Sleep New metoprolol (Lopressor) 12.5 Milligram by mouth Two (2) times a day New ondansetron (Zofran) 4 Milligram IV Push Every 4 hours as needed for Nausea/Vomiting New polyethylene glycol 3350 (MiraLax oral powder for reconstitution) by mouth Two (2) times a day Unchanged amLODIPine (amLODIPine 5 mg oral tablet) 1 tab(s) by mouth Once a day Unchanged ascorbic acid (Vitamin C 500 mg oral tablet) 1 tab(s) by mouth Once a day Unchanged atorvastatin (atorvastatin 20 mg oral tablet) 1 tab(s) by mouth Once a day Diabetes mellitus type 2 Duration: 90 Days Unchanged budesonide-formoterol (budesonide-formoterol 160 mcg-4.5 mcg/ inh Inhaler) 2 puff(s) by inhalation Every day Duration: 90 Days Unchanged bumetanide (bumetanide 1 mg oral tablet) 0.5 tab(s) by mouth Two (2) times a day Unchanged ferrous sulfate (IRON (ferrous sulfate 325 mg) 65 mg oral tablet) 1 tab(s) by mouth Once a day Take with food. Unchanged Misc Medication (O2) 2L at hs or whenever laying down What How Much When Comments Stop Taking amiodarone (amiodarone 200 mg oral tablet) 1 tab(s) by mouth Two (2) times a day Stop Taking apixaban (Eliquis 5 mg oral tablet) 1 tab(s) by mouth Two (2) times a day Stop Taking aspirin (aspirin 81 mg oral delayed release tablet) 1 tab(s) by mouth Every day Stop Taking dilTIAZem (Cardizem CD 180 mg/ 24 hours oral capsule, extended release) 1 cap by mouth Once a day Stop Taking DME (Pen needles 8 mm) See instructions BD UF 8mm 31 G (short)Use to inject insulin once daily Stop Taking furosemide (furosemide 40 mg oral tablet) 1 tab(s) by mouth Once a day Stop Taking insulin degludec (Tresiba FlexTouch 200 units/ mL 3 mL subcutaneous solution) 75 unit(s) Subcutaneous Once a day Stop Taking metFORMIN (MetFORMIN (Eqv-Glucophage XR) 500 mg oral tablet, EXTENDED RELEASE) 2 tab(s) by mouth Once a day Duration: 90 Days Okay to fill generic metformin ER nonosmotic Stop Taking tirzepatide (Mounjaro 5 mg/ 0.5 mL subcutaneous solution) 5 Milligram Subcutaneous Every week rotate injection sites Please take this list to your next doctor s visit. Bring all medications you take, including over the counter medications, herbals and other supplements with you to your doctor s visit. Patients and families are reminded to discard old lists and to update any records with all medication providers or retail pharmacies. Education Materials Bradycardia, Adult Bradycardia is a dzgjub-xkpq-cqdryq heartbeat. A normal resting heart rate for an adult ranges from60 to 100 beats per minute. With bradycardia, the resting heart rate is less than 60 beats per minute. Bradycardia can prevent enough oxygen from reaching certain areas of your body when you are active.It can be serious if it keeps enough oxygen from reaching your brain and other parts of your body. Bradycardia is not a problem for everyone. For some healthy adults, a slow resting heart rate is normal. What are the causes? This condition may be caused by: A problem with the heart, including: ? A problem with the heart's electrical system, such as a heart block. With a heart block, electricalsignals between the chambers of the heart are partially or completely blocked, so they are not ableto work as they should. ? A problem with the heart's natural pacemaker (sinus node). ? Heart disease. ? A heart attack. ? Heart damage. ? Lyme disease. ? A heart infection. ? A heart condition that is present at (congenital heart defect). Certain medicines that treat heart conditions. Certain conditions, such as hypothyroidism and obstructive sleep apnea. Problems with the balance of chemicals and other substances, like potassium, in the blood. Trauma. Radiation therapy. What increases the risk? You are more likely to develop this condition if you: Are age 65 or older. Have high blood pressure (hypertension), high cholesterol (hyperlipidemia), or diabetes. Drink heavily, use tobacco or nicotine products, or use drugs. What are the signs or symptoms? Symptoms of this condition include: Light-headedness. Feeling faint or fainting. Fatigue and weakness. Trouble with activity or exercise. Shortness of breath. Chest pain (angina). Drowsiness. Confusion. Dizziness. How is this diagnosed? This condition may be diagnosed based on: Your symptoms. Your medical history. A physical exam. During the exam, your health care provider will listen to your heartbeat and check your pulse. To confirm the diagnosis, your health care provider may order tests, such as: Blood tests. An electrocardiogram (ECG). This test records the heart's electrical activity. The test can show how fast your heart is beating and whether the heartbeat is steady. A test in which you wear a portable device (event recorder or Holter monitor) to record your heart's electrical activity while you go about your day. An exercise test. How is this treated? Treatment for this condition depends on the cause of the condition and how severe your symptoms are. Treatment may involve: Treatment of the underlying condition. Changing your medicines or how much medicine you take. Having a small, battery-operated device called a pacemaker implanted under the skin. When bradycardia occurs, this device can be used to increase your heart rate and help your heart beat in a regularrhythm. Follow these instructions at home: Lifestyle Manage any health conditions that contribute to bradycardia as told by your health care provider. Follow a heart-healthy diet. A virtual reality specialist (dietitian) can help educate you about healthy food options and changes. Follow an exercise program that is approved by your health care provider. Maintain a healthy weight. Try to reduce or manage your stress, such as with yoga or meditation. If you need help reducing stress, ask your health care provider. Do not use any products that contain nicotine or tobacco, such as cigarettes, e- cigarettes, and chewing tobacco. If you need help quitting, ask your health care provider. Do not use illegal drugs. Limit alcohol intake to no more than 1 drink a day for non women and 2 drinks a day for men. Be aware of how much alcohol is in your drink. In the [place] one drink equals one 12 oz bottle of beer (355 mL), one 5 oz glass of wine (148 mL), or one 1 oz glass of hard liquor (44 mL). General instructions Take ideb-ygf-rtrjses and prescription medicines only as told by your health care provider. Keep all follow-up visits as told by your health care provider. This is important. How is this prevented? In some cases, bradycardia may be prevented by: Treating underlying medical problems. Stopping behaviors or medicines that can trigger the condition. Contact a health care provider if you: Feel light-headed or dizzy. Almost faint. Feel weak or are easily fatigued during physical activity. Experience confusion or have memory problems. Get help right away if: You faint. You have: ? An irregular heartbeat (palpitations). ? Chest pain. ? Trouble breathing. Summary Bradycardia is a gjymjf-irhb-okxiba heartbeat. With bradycardia, the resting heart rate is less than 60 beats per minute. Treatment for this condition depends on the cause. Manage any health conditions that contribute to bradycardia as told by your health care provider. Do not use any products that contain nicotine or tobacco, such as cigarettes, e- cigarettes, and chewing tobacco, and limit alcohol intake. Keep all follow-up visits as told by your health care provider. This is important. This information is not intended to replace advice given to you by your health care provider. Make sure you discuss any questions you have with your health care provider. Document Released: 03/20/2003 Document Revised: 01/09/2019 Document Reviewed: 12/07/2018 [employer] Patient Education 2020 [employer] Hematoma A hematoma is a collection of blood. A hematoma can happen: Under the skin. In an organ. In a body space. In a joint space. In other tissues. The blood can thicken (clot) to form a lump that you can see and feel. The lump is often hard and may become sore and tender. The lump can be very small or very big. Most hematomas get better in a few days to weeks. However, some hematomas may be serious and need medical care. What are the causes? This condition is caused by: An injury. Blood that leaks under the skin. Problems from surgeries. Medical conditions that cause bleeding or bruising. What increases the risk? You are more likely to develop this condition if: You are an older adult. You use medicines that thin your blood. What are the signs or symptoms? Symptoms depend on where the hematoma is in your body. If the hematoma is under the skin, there is: ? A firm lump on the body. ? Pain and tenderness in the area. ? Bruising. The skin above the lump may be blue, dark blue, purple-red, or yellowish. If the hematoma is deep in the tissues or body spaces, there may be: ? Blood in the stomach. This may cause pain in the belly (abdomen), weakness, passing out (fainting),and shortness of breath. ? Blood in the head. This may cause a headache, weakness, trouble speaking or understanding speech, or passing out. How is this diagnosed? This condition is diagnosed based on: Your medical history. A physical exam. Imaging tests, such as ultrasound or CT scan. Blood tests. How is this treated? Treatment depends on the cause, size, and location of the hematoma. Treatment may include: Doing nothing. Many hematomas go away on their own without treatment. Surgery or close monitoring. This may be needed for large hematomas or hematomas that affect the body's organs. Medicines. These may be given if a medical condition caused the hematoma. Follow these instructions at home: Managing pain, stiffness, and swelling If told, put ice on the area. ? Put ice in a plastic bag. ? Place a towel between your skin and the bag. ? Leave the ice on for 20 minutes, 2 3 times a day for the first two days. If told, put heat on the affected area after putting ice on the area for two days. Use the heat source that your doctor tells you to use. This could be a moist heat pack or a heating pad. To do this: ? Place a towel between your skin and the heat source. ? Leave the heat on for 20 30 minutes. ? Remove the heat if your skin turns bright red. This is very important if you are unable to feel pain, heat, or cold. You may have a greater risk of getting burned. Raise (elevate) the affected area above the level of your heart while you are sitting or lying down. Wrap the affected area with an elastic bandage, if told by your doctor. Do not wrap the bandage tootightly. If your hematoma is on a leg or foot and is painful, your doctor may give you crutches. Use them astold by your doctor. General instructions Take lvva-dxp-tbcvntl and prescription medicines only as told by your doctor. Keep all follow-up visits as told by your doctor. This is important. Contact a doctor if: You have a fever. The swelling or bruising gets worse. You start to get more hematomas. Get help right away if: Your pain gets worse. Your pain is not getting better with medicine. Your skin over the hematoma breaks or starts to bleed. Your hematoma is in your chest or belly and you: ? Pass out. ? Feel weak. ? Become short of breath. You have a hematoma on your scalp that is caused by a fall or injury, and you: ? Have a headache that gets worse. ? Have trouble speaking or understanding speech. ? Become less alert or you pass out. Summary A hematoma is a collection of blood in any part of your body. Most hematomas get better on their own in a few days to weeks. Some may need medical care. Follow instructions from your doctor about how to care for your hematoma. Contact a doctor if the swelling or bruising gets worse, or if you are short of breath. This information is not intended to replace advice given to you by your health care provider. Make sure you discuss any questions you have with your health care provider. Document Released: 08/05/2005 Document Revised: 12/01/2018 Document Reviewed: 12/01/2018 [employer] Patient Education 2020 [employer] Additional Information VACCINATE! IT SAVES LIVES! Members of the community who have not yet received the COVID-19 vaccine and would like to receive it can visit one of [facility] vaccine clinics. There are many vaccine clinic locations within the [facility]. For locations and available times, please visit https://[email or web address].[place].gov/. It is important to note that some COVID mobile vaccine clinics are held outdoors and may be canceled in rainy or stormy conditions. To learn more about pediatric vaccinations (ages 5-11), we invite you to visit the [employer] [facility] webpage. https://www.004 [employer].org/pages/0955-Yscxn-Wcorhzemdxl-Pphitpqvlq-Tzato-Jvt stions.htmlTo learn more about the COVID-19 vaccine, we invite you to visit the CDC website for a list of frequently asked questions.https://www.cdc.gov/coronavirus/2019-ncov/vaccines/faq.html [employer] Patient Portal Access Instructions: Stay connected with your healthcare team and access your personal medical information anytime with the [employer] Patient Portal. Please follow the directions below to create your [employer] account: 1.Access the email account you provided upon registration to the hospital/physician office.2.Look for an invitation email from [facility].3.Open the email and access the invitation link: AcceptInvitation to Book Buyback.4.Fill in the required breen to create your account. To access your account, visit [employer]. Click the blue button labeled Access Patient Portal and then log in with the username and password that you created in the steps above. You will be able to view your test results, lab results, a summary of your visits, upcoming appointments and more. There is also a convenient messaging option where you can send secure messages to your p mandyvider. In addition, you will have the ability to download any documents or summaries to your computer and/or send the information securely to a physician. Remember that your healthcare information is confidential, so carefully consider who you will allowto register on the [facility] for access to your information. You can also access the [facility] on the [place] [employer] priscilla. Simply click on Patient Portal and then log into your account. If you would like to receive a full copy of your medical records, please contact the [facility] Medical Records Department by calling [phone], Wednesday through Wednesday between 8 a.m. and 4:30 p.m. HOW TO SAFELY DISPOSE OF PRESCRIPTION MEDICATIONS Please use one of the following methods to safely dispose of your unused medications. 1.Use a drug disposal kit: the drug disposal pouch allows you to safely discard your old and unuseddrugs. Ask your nurse to give you one when you are discharged.2.Visit a local take-back location: Many local pharmacies and police departments have programs that collect old and unwanted prescriptiondrugs. Call your local pharmacy or go to http://Wikidot.Rebit/3J0Rs0l to find one close to you.3.Make use of household items: Use cat litter or old coffee grounds to dispose medications if other options arenot available. Mix your drugs with these household products, seal them in an airtight container andthrow it into the garbage. Call [facility]: [phone] to be sure your drugs can be disposed of in this way. Some medicines may require a different approach.4.Never flush your medications down the toilet. IF YOU HAVE BEEN PRESCRIBED AN OPIOID FOR PAIN If you have been prescribed an opioid (such as hydrocodone, oxycodone or morphine), it is critical to understand the possible side effects and risks of opioid pain medications. Even when taken as directed, opioids can have several side effects including: Tolerance, meaning you might need to take more of a medication for the same pain relief. Nausea, vomiting and/or constipation. Sleepiness, dizziness, dry mouth, confusion, depression or itching. Physical dependence, meaning you have withdrawal symptoms when a medication is stopped, can develop within a few days. KNOW YOUR RESPONSIBILITIES It is important to know exactly how much and how often to take the opioid pain medications you are prescribed. Never take opioids in higher amounts or more often than prescribed. Do not combine opioids with alcohol or other drugs that cause drowsiness, such as benzodiazepines, also known as benzos, including diazepam and alprazolam, muscle relaxants or sleep aids. Never sell or share prescription opioids. This is illegal. Store opioids in a secure place and out of reach of others (including children, family, friends and visitors). The last page of this document has been signed and retained as a CHART COPY. Signatures Patient Education Materials Bradycardia, Adult Hematoma, Azqb-yf-Wcwa Medication Leaflets My discharge plan and instructions have been reviewed and explained to me and I,JADON ALVAREZ understand my current condition and have read and understand these discharge instructions. I have received a written copy of the plan/instructions. If I have questions, I am aware that I should contact my doctor. 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 The following is importantdischarge information regarding your hospital visit. Your Care Team KELLIE BENITES APRN-REGAN Your Diagnosis Diabetes mellitus type 2 What to do next Instructions From Your Doctor Discharge to [facility]. Contact your primary care provider for posthospital follow-up appointment. Follow-up with hematology for continued evaluation of recurrent lower extremity blood clotsfor hypercoagulability workup. Recommend repeat ultrasound in 1 week of the right lower extremity for continued evaluation of DVT and the right lower extremity. Follow-up with cardiology for continued evaluation of low heart rate. Follow-up with vascular surgery for continued evaluation. Continue holding aspirin and Eliquis until cleared by vascular surgery to restart anticoagulation. Your Cardizem, amiodarone, and Coreg were stopped during her hospitalization for low heart rate. You were started on metoprolol for rate control. Scheduled Follow-Up Appointments Appointment Type When With Where Contact InformationNUT Diet Visit Individual 10/22/2023 08:30 AM EDT [facility] [phone] PC OV 10/22/2023 09:30 AM EDT KELLIE BENITES [facility] [address] [place] [phone] MEDS - Diabetic Individual Visit 12/30/2023 09:00 AM EDT [facility] [phone] Follow Up Appointments Follow Up with NAHED MASON MD When In 2 weeks Why: Call for follow up appointment with cardiology. Where: [address] [facility] [address] [facility] [place] [address]- Follow Up with KELLIE BENITES When Within 5 to 7 days Why: Call for follow-up appointment with your primary care provider. Where: [address] [place] [address]- [phone] Follow Up with JACINTA MARIANO MD, [facility], Surgery, Vascular Surgeons When In 1 week Why: Call for follow up appointment with vascular surgery. Where: [address] [facility] [address] [facility] [place] [address] [phone] Follow Up with SANG PARSONS MD When In 2 weeks Why: Call for appointment with hematology for further evaluation of recurrent blood clots. Where: [address] [facility] [place] [address]- [phone] The Following Activity and Diet Have Been Ordered for You Transfer of Care Activity - Ordered -- As instructed by therapy, 10/13/23 11:55:00 EDT Transfer of Care Diet - Ordered -- Type of Diet: Regular Diet, ADA diet, 10/13/23 11:55:00 EDT The Following Equipment Has Been Ordered for You No qualifying data available. The Following Treatments Have Been Ordered for You Discharge Labs No qualifying data available. Discharge Radiology No qualifying data available. Other Therapies Transfer of Care OT - Ordered -- Reason for therapy: weakness post fall, 10/13/23 11:55:00 EDT Transfer of Care PT - Ordered -- Reason for therapy: weakness post fall, 10/13/23 11:55:00 EDT Post Acute Orders Transfer of Care Code Status - Ordered -- DNRCC-Arrest Intubate & Mechanical Vent, Constant Order Transfer of Care Orders Electronically Signed By - Ordered -- 10/13/23 11:55:00 EDT, ROB MONTENEGRO DO Transfer of Care Prognosis - Ordered -- Fair, Patient Aware: Yes Transfer of Care Rehab Potential - Ordered -- Rehab potential fair, 10/13/23 11:55:59 EDT Someone Will Contact You Regarding These Home Health Referrals No home referrals have been ordered for you. No one will call you. Allergies Nuprin (Unknown) misc non-codified allergy (unknown) Medications Please ask your primary doctor or pharmacist before taking any other medication not listed, including over the counter drugs, herbal medications, vitamins and or supplements as they may interact withyour home medications. What How Much When Why Instructions Last Dose New acetaminophen (Tylenol 325 mg oral capsule) 650 Milligram by mouth Every 4 hours as needed for Pain, scale 1-3 New acetaminophen-oxyCODONE (Percocet 325/ 5) 2 tab(s) by mouth Every 4 hours as needed for Pain, scale 4-6 New gabapentin (gabapentin 300 mg oral capsule) 1 cap by mouth Three (3) times a day New glucose (glucose 50% intravenous solution) 25 Milliliter IV Push As Directed as needed for Hypoglycemia New insulin glargine (Lantus 100 units/ mL10 ml vial solution) 75 unit(s) Subcutaneous (INT) Once a day New insulin lispro (HumaLOG) (HumaLOG 100 units/ mL subcutaneous solution) Give 0-5 units/dose Subcutaneous Three (3) times a day before meals New melatonin (melatonin 3 mg oral tablet) 1 tab(s) by mouth Daily at bedtime as needed for Sleep New metoprolol (Lopressor) 12.5 Milligram by mouth Two (2) times a day New ondansetron (Zofran) 4 Milligram IV Push Every 4 hours as needed for Nausea/Vomiting New polyethylene glycol 3350 (MiraLax oral powder for reconstitution) by mouth Two (2) times a day Unchanged amLODIPine (amLODIPine 5 mg oral tablet) 1 tab(s) by mouth Once a day Unchanged ascorbic acid (Vitamin C 500 mg oral tablet) 1 tab(s) by mouth Once a day Unchanged atorvastatin (atorvastatin 20 mg oral tablet) 1 tab(s) by mouth Once a day Diabetes mellitus type 2 Duration: 90 Days Unchanged budesonide-formoterol (budesonide-formoterol 160 mcg-4.5 mcg/ inh Inhaler) 2 puff(s) by inhalation Every day Duration: 90 Days Unchanged bumetanide (bumetanide 1 mg oral tablet) 0.5 tab(s) by mouth Two (2) times a day Unchanged ferrous sulfate (IRON (ferrous sulfate 325 mg) 65 mg oral tablet) 1 tab(s) by mouth Once a day Take with food. Unchanged Misc Medication (O2) 2L at hs or whenever laying down What How Much When Comments Stop Taking amiodarone (amiodarone 200 mg oral tablet) 1 tab(s) by mouth Two (2) times a day Stop Taking apixaban (Eliquis 5 mg oral tablet) 1 tab(s) by mouth Two (2) times a day Stop Taking aspirin (aspirin 81 mg oral delayed release tablet) 1 tab(s) by mouth Every day Stop Taking dilTIAZem (Cardizem CD 180 mg/ 24 hours oral capsule, extended release) 1 cap by mouth Once a day Stop Taking DME (Pen needles 8 mm) See instructions BD UF 8mm 31 G (short)Use to inject insulin once daily Stop Taking furosemide (furosemide 40 mg oral tablet) 1 tab(s) by mouth Once a day Stop Taking insulin degludec (Tresiba FlexTouch 200 units/ mL 3 mL subcutaneous solution) 75 unit(s) Subcutaneous Once a day Stop Taking metFORMIN (MetFORMIN (Eqv-Glucophage XR) 500 mg oral tablet, EXTENDED RELEASE) 2 tab(s) by mouth Once a day Duration: 90 Days Okay to fill generic metformin ER nonosmotic Stop Taking tirzepatide (Mounjaro 5 mg/ 0.5 mL subcutaneous solution) 5 Milligram Subcutaneous Every week rotate injection sites Please take this list to your next doctor s visit. Bring all medications you take, including over the counter medications, herbals and other supplements with you to your doctor s visit. Patients and families are reminded to discard old lists and to update any records with all medication providers or retail pharmacies. Education Materials Bradycardia, Adult Bradycardia is a hpwmxy-hqaq-fdkjkd heartbeat. A normal resting heart rate for an adult ranges from60 to 100 beats per minute. With bradycardia, the resting heart rate is less than 60 beats per minute. Bradycardia can prevent enough oxygen from reaching certain areas of your body when you are active.It can be serious if it keeps enough oxygen from reaching your brain and other parts of your body. Bradycardia is not a problem for everyone. For some healthy adults, a slow resting heart rate is normal. What are the causes? This condition may be caused by: A problem with the heart, including: ? A problem with the heart's electrical system, such as a heart block. With a heart block, electricalsignals between the chambers of the heart are partially or completely blocked, so they are not ableto work as they should. ? A problem with the heart's natural pacemaker (sinus node). ? Heart disease. ? A heart attack. ? Heart damage. ? Lyme disease. ? A heart infection. ? A heart condition that is present at (congenital heart defect). Certain medicines that treat heart conditions. Certain conditions, such as hypothyroidism and obstructive sleep apnea. Problems with the balance of chemicals and other substances, like potassium, in the blood. Trauma. Radiation therapy. What increases the risk? You are more likely to develop this condition if you: Are age 65 or older. Have high blood pressure (hypertension), high cholesterol (hyperlipidemia), or diabetes. Drink heavily, use tobacco or nicotine products, or use drugs. What are the signs or symptoms? Symptoms of this condition include: Light-headedness. Feeling faint or fainting. Fatigue and weakness. Trouble with activity or exercise. Shortness of breath. Chest pain (angina). Drowsiness. Confusion. Dizziness. How is this diagnosed? This condition may be diagnosed based on: Your symptoms. Your medical history. A physical exam. During the exam, your health care provider will listen to your heartbeat and check your pulse. To confirm the diagnosis, your health care provider may order tests, such as: Blood tests. An electrocardiogram (ECG). This test records the heart's electrical activity. The test can show how fast your heart is beating and whether the heartbeat is steady. A test in which you wear a portable device (event recorder or Holter monitor) to record your heart's electrical activity while you go about your day. An exercise test. How is this treated? Treatment for this condition depends on the cause of the condition and how severe your symptoms are. Treatment may involve: Treatment of the underlying condition. Changing your medicines or how much medicine you take. Having a small, battery-operated device called a pacemaker implanted under the skin. When bradycardia occurs, this device can be used to increase your heart rate and help your heart beat in a regularrhythm. Follow these instructions at home: Lifestyle Manage any health conditions that contribute to bradycardia as told by your health care provider. Follow a heart-healthy diet. A virtual reality specialist (dietitian) can help educate you about healthy food options and changes. Follow an exercise program that is approved by your health care provider. Maintain a healthy weight. Try to reduce or manage your stress, such as with yoga or meditation. If you need help reducing stress, ask your health care provider. Do not use any products that contain nicotine or tobacco, such as cigarettes, e- cigarettes, and chewing tobacco. If you need help quitting, ask your health care provider. Do not use illegal drugs. Limit alcohol intake to no more than 1 drink a day for non women and 2 drinks a day for men. Be aware of how much alcohol is in your drink. In the [place] one drink equals one 12 oz bottle of beer (355 mL), one 5 oz glass of wine (148 mL), or one 1 oz glass of hard liquor (44 mL). General instructions Take umev-ijy-hwxdoet and prescription medicines only as told by your health care provider. Keep all follow-up visits as told by your health care provider. This is important. How is this prevented? In some cases, bradycardia may be prevented by: Treating underlying medical problems. Stopping behaviors or medicines that can trigger the condition. Contact a health care provider if you: Feel light-headed or dizzy. Almost faint. Feel weak or are easily fatigued during physical activity. Experience confusion or have memory problems. Get help right away if: You faint. You have: ? An irregular heartbeat (palpitations). ? Chest pain. ? Trouble breathing. Summary Bradycardia is a sdzscn-kjqy-dcxaal heartbeat. With bradycardia, the resting heart rate is less than 60 beats per minute. Treatment for this condition depends on the cause. Manage any health conditions that contribute to bradycardia as told by your health care provider. Do not use any products that contain nicotine or tobacco, such as cigarettes, e- cigarettes, and chewing tobacco, and limit alcohol intake. Keep all follow-up visits as told by your health care provider. This is important. This information is not intended to replace advice given to you by your health care provider. Make sure you discuss any questions you have with your health care provider. Document Released: 03/20/2003 Document Revised: 01/09/2019 Document Reviewed: 12/07/2018 [employer] Patient Education 2020 [employer] Hematoma A hematoma is a collection of blood. A hematoma can happen: Under the skin. In an organ. In a body space. In a joint space. In other tissues. The blood can thicken (clot) to form a lump that you can see and feel. The lump is often hard and may become sore and tender. The lump can be very small or very big. Most hematomas get better in a few days to weeks. However, some hematomas may be serious and need medical care. What are the causes? This condition is caused by: An injury. Blood that leaks under the skin. Problems from surgeries. Medical conditions that cause bleeding or bruising. What increases the risk? You are more likely to develop this condition if: You are an older adult. You use medicines that thin your blood. What are the signs or symptoms? Symptoms depend on where the hematoma is in your body. If the hematoma is under the skin, there is: ? A firm lump on the body. ? Pain and tenderness in the area. ? Bruising. The skin above the lump may be blue, dark blue, purple-red, or yellowish. If the hematoma is deep in the tissues or body spaces, there may be: ? Blood in the stomach. This may cause pain in the belly (abdomen), weakness, passing out (fainting),and shortness of breath. ? Blood in the head. This may cause a headache, weakness, trouble speaking or understanding speech, or passing out. How is this diagnosed? This condition is diagnosed based on: Your medical history. A physical exam. Imaging tests, such as ultrasound or CT scan. Blood tests. How is this treated? Treatment depends on the cause, size, and location of the hematoma. Treatment may include: Doing nothing. Many hematomas go away on their own without treatment. Surgery or close monitoring. This may be needed for large hematomas or hematomas that affect the body's organs. Medicines. These may be given if a medical condition caused the hematoma. Follow these instructions at home: Managing pain, stiffness, and swelling If told, put ice on the area. ? Put ice in a plastic bag. ? Place a towel between your skin and the bag. ? Leave the ice on for 20 minutes, 2 3 times a day for the first two days. If told, put heat on the affected area after putting ice on the area for two days. Use the heat source that your doctor tells you to use. This could be a moist heat pack or a heating pad. To do this: ? Place a towel between your skin and the heat source. ? Leave the heat on for 20 30 minutes. ? Remove the heat if your skin turns bright red. This is very important if you are unable to feel pain, heat, or cold. You may have a greater risk of getting burned. Raise (elevate) the affected area above the level of your heart while you are sitting or lying down. Wrap the affected area with an elastic bandage, if told by your doctor. Do not wrap the bandage tootightly. If your hematoma is on a leg or foot and is painful, your doctor may give you crutches. Use them astold by your doctor. General instructions Take iaih-dau-ugpxano and prescription medicines only as told by your doctor. Keep all follow-up visits as told by your doctor. This is important. Contact a doctor if: You have a fever. The swelling or bruising gets worse. You start to get more hematomas. Get help right away if: Your pain gets worse. Your pain is not getting better with medicine. Your skin over the hematoma breaks or starts to bleed. Your hematoma is in your chest or belly and you: ? Pass out. ? Feel weak. ? Become short of breath. You have a hematoma on your scalp that is caused by a fall or injury, and you: ? Have a headache that gets worse. ? Have trouble speaking or understanding speech. ? Become less alert or you pass out. Summary A hematoma is a collection of blood in any part of your body. Most hematomas get better on their own in a few days to weeks. Some may need medical care. Follow instructions from your doctor about how to care for your hematoma. Contact a doctor if the swelling or bruising gets worse, or if you are short of breath. This information is not intended to replace advice given to you by your health care provider. Make sure you discuss any questions you have with your health care provider. Document Released: 08/05/2005 Document Revised: 12/01/2018 Document Reviewed: 12/01/2018 [employer] Patient Education 2020 [employer]. Additional Information VACCINATE! IT SAVES LIVES! Members of the community who have not yet received the COVID-19 vaccine and would like to receive it can visit one of [facility] vaccine clinics. There are many vaccine clinic locations within the [facility]. For locations and available times, please visit https://gettheshot.coronavirus.[place].gov/. It is important to note that some COVID mobile vaccine clinics are held outdoors and may be canceled in rainy or stormy conditions. To learn more about pediatric vaccinations (ages 5-11), we invite you to visit the [facility] webpage. https://www.[email or web address].org/pages/[email or web address]-Rwces-Yhiezudsboq-Ysvjqbehix-Tfxvz-Khs stions.htmlTo learn more about the COVID-19 vaccine, we invite you to visit the CDC website for a list of frequently asked questions.https://www.cdc.gov/coronavirus/2019-ncov/vaccines/faq.html [employer] Patient Portal Access Instructions: Stay connected with your healthcare team and access your personal medical information anytime with the [employer] [facility] Patient Portal. Please follow the directions below to create your [employer] account: 1.Access the email account you provided upon registration to the hospital/physician office.2.Look for an invitation email from [facility].3.Open the email and access the invitation link: AcceptInvitation to Book Buyback.4.Fill in the required breen to create your account. To access your account, visit [employer]. Click the blue button labeled Access Patient Portal and then log in with the username and password that you created in the steps above. You will be able to view your test results, lab results, a summary of your visits, upcoming appointments and more. There is also a convenient messaging option where you can send secure messages to your p rovider. In addition, you will have the ability to download any documents or summaries to your computer and/or send the information securely to a physician. Remember that your healthcare information is confidential, so carefully consider who you will allowto register on the [place] [facility].plChart Patient Portal for access to your information. You can also access the [facility] on the [place] [facility] priscilla. Simply click on Patient Portal and then log into your account. If you would like to receive a full copy of your medical records, please contact the [facility] Medical Records Department by calling [phone], Wednesday through Wednesday between 8 a.m. and 4:30 p.m. HOW TO SAFELY DISPOSE OF PRESCRIPTION MEDICATIONS Please use one of the following methods to safely dispose of your unused medications. 1.Use a drug disposal kit: the drug disposal pouch allows you to safely discard your old and unuseddrugs. Ask your nurse to give you one when you are discharged.2.Visit a local take-back location: Many local pharmacies and police departments have programs that collect old and unwanted prescriptiondrugs. Call your local pharmacy or go to http://Wikidot.Rebit/6J4Rh4a to find one close to you.3.Make use of household items: Use cat litter or old coffee grounds to dispose medications if other options arenot available. Mix your drugs with these household products, seal them in an airtight container andthrow it into the garbage. Call [facility]: [phone] to be sure your drugs can be disposed of in this way. Some medicines may require a different approach.4.Never flush your medications down the toilet. IF YOU HAVE BEEN PRESCRIBED AN OPIOID FOR PAIN If you have been prescribed an opioid (such as hydrocodone, oxycodone or morphine), it is critical to understand the possible side effects and risks of opioid pain medications. Even when taken as directed, opioids can have several side effects including: Tolerance, meaning you might need to take more of a medication for the same pain relief. Nausea, vomiting and/or constipation. Sleepiness, dizziness, dry mouth, confusion, depression or itching. Physical dependence, meaning you have withdrawal symptoms when a medication is stopped, can develop within a few days. KNOW YOUR RESPONSIBILITIES It is important to know exactly how much and how often to take the opioid pain medications you are prescribed. Never take opioids in higher amounts or more often than prescribed. Do not combine opioids with alcohol or other drugs that cause drowsiness, such as benzodiazepines, also known as benzos, including diazepam and alprazolam, muscle relaxants or sleep aids. Never sell or share prescription opioids. This is illegal. Store opioids in a secure place and out of reach of others (including children, family, friends and visitors). The last page of this document has been signed and retained as a CHART COPY. Signatures Patient Education Materials Bradycardia, Adult Hematoma, Klrj-pm-Xivl Medication Leaflets My discharge plan and instructions have been reviewed and explained to me and I,JADON ALVAREZ understand my current condition and have read and understand these discharge instructions. I have received a written copy of the plan/instructions. If I have questions, I am aware that I should contact my doctor. 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 Signature: Date/Time: Relationship to Patient: Witness Name/Signature: [id number] Discharge summary Date of Service 10/13/2023 Discharge Diagnosis Right lower extremity hematoma x 2 Right forehead laceration with repair Scalp hematoma Mechanical fall Junctional rhythm A flutter HFpEF Obesity Diabetes CKD History of aortic valve replacement PAWEL Additional Orders: Ordered: Discharge,10/13/23 11:55:00 EDT, Discharged to: Rehab Facility Ordered: HumaLOG 100 units/mL subcutaneous solution,Give 0-5 units/dose, Subcutaneous, TIDAC, 0 Refill(s) Ordered: Lantus 100 units/mL10 ml vial solution,Dose : 75 unit(s) =, Subcutaneous (INT), qDay, 0 Refill(s) Ordered: Lopressor,Dose : 12.5 mg = 1 EA, Oral, BID, 0 Refill(s) Ordered: MiraLax oral powder for reconstitution,Oral, BID, 0 Refill(s) Ordered: Percocet 325/5,Dose = 2 tab(s), Oral, q4h, PRN Pain, scale 4-6, 0 Refill(s), 169 Ordered: Transfer of Care Activity,As instructed by therapy, 10/13/23 11:55:00 EDT Ordered: Transfer of Care Code Status,DNRCC-Arrest Intubate & Mechanical Vent, Constant Order Ordered: Transfer of Care Diet,Type of Diet: Regular Diet, ADA diet, 10/13/23 11:55:00 EDT Ordered: Transfer of Care OT,Reason for therapy: weakness post fall, 10/13/23 11:55:00 EDT Ordered: Transfer of Care Orders Electronically Signed By,10/13/23 11:55:00 EDT, ROB MONTENEGRO DO Ordered: Transfer of Care PT,Reason for therapy: weakness post fall, 10/13/23 11:55:00 EDT Ordered: Transfer of Care Prognosis,Fair, Patient Aware: Yes Ordered: Transfer of Care Rehab Potential,Rehab potential fair, 10/13/23 11:55:59 EDT Ordered: Tylenol 325 mg oral capsule,Dose : 650 mg =, Oral, q4h, PRN Pain, scale 1-3, 0 Refill(s) Ordered: Zofran,Dose : 4 mg = 2 mL, IV Push, q4h, PRN Nausea/Vomiting, 0 Refill(s) Ordered: gabapentin 300 mg oral capsule,Dose : 300 mg = 1 cap(s), Oral, TID, 0 Refill(s), 169 Ordered: glucose 50% intravenous solution,Dose : 12.5 gram(s) = 25 mL, IV Push, AsDirected, PRN Hypoglycemia, 0 Refill(s) Ordered: melatonin 3 mg oral tablet,Dose : 3 mg = 1 tab(s), Oral, qHS, PRN Sleep, 0 Refill(s) Hospital Course Patient is a 68-year-old male with past medical history of DVT, previous IVC filter which was subsequently removed, a flutter on Eliquis and amiodarone, diabetes, CKD, aortic valve replacement, obesity, who presented to [place] emergency department on 10/07/2023 for complaints of mechanical fall. Patient reported he struck his right lower extremity resulting in hematoma. CT of the right lower extremity without contrast showed 2 large hematomas 11 x 5 x 28 cm and 7 x 2 x 7 cm. Patient was lacerations to the right frontal scalp. CT head showed soft tissue hematoma. Patient noted to have a drop in hemoglobin from 12- 6.5. Patient was transfused with 1 unit of packed red blood cells and started on ceftriaxone initially for concern of cellulitis. This was later discontinued. Patient was transferred to [facility] for continued treatment evaluation. Interventional radiology consulted for possible drainage of right lower extremity hematoma. IR does not recommend drainage of hematoma due to risk for repeat bleeding. Patient with right lower extremity pain which was treated with Neurontin during hospitalization. Patient did receive 1 unit of packed red blood cells on 10/10/2023 for hemoglobin of 6.9. Venous duplex positive for right femoral extremity DVT. Discussed with interventional radiology who states this appeared to be chronic. Case was also discussed with vascular surgery who recommends repeat ultrasound in 1 week. Patient to follow-up with vascular surgery in the outpatient setting. Also recommend outpatient follow-up with hematology to further evaluate hypercoagulability workup if not already completed. Continue to hold Eliquis until cleared per vascular surgery. Ju nctional rhythm resolved with holding Coreg, Cardizem, and amiodarone. Patient started on metoprolol per cardiology service. Heart rate maintained in the 50-60 range. Patient's hemoglobin remained stable. Patient optimized for discharge to swing bed for continued therapy. Recommend patient follow-up with hematology in the outpatient setting for further evaluation of recurrent lower extremity DVTs if hypercoagulability workup has not previously been completed. Continue Adaptic dressing changes daily to right lower extremity. Recommend repeat right lower extremity duplex in 1 week to further evaluate for DVT. Patient to follow-up with vascular surgery in the outpatient setting for continued evaluation. Continue to hold Eliquis until cleared by vascular surgery to restart anticoagulation. Patient to follow-up with orthopedics for reevaluation of right lower extremity hematoma. Patient to follow-up with cardiology for continued evaluation of low heart rate with medication changes during his hospital stay. Patient to continue holding Coreg, Cardizem, and amiodarone on discharge. Continuemetoprolol 12.5 twice daily. Patient discharged to [facility]. Case discussed with collaborating physician Dr. Montenegro. Allergies Nuprin (Unknown) misc non-codified allergy (unknown) Consults Consult to Palliative Care - Ordered -- 10/08/23 11:57:00 EDT, advance directives pain management other symptom management, MD SANDRA. 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 Recommend treatment with bleeding risk to debride. Objective Vitals and Measurements T: 36.9 C (Oral) TMIN: 36.5 C (Oral) TMAX: 36.9 C (Oral) HR: 60 RR: 18 BP: 169/64 SpO2: 96% Weight Dosing Weight: 169 kg (10/07/23) Code Status Code Status - Ordered -- 10/11/23 13:19:00 EDT, DNRCC-Arrest Intubate & Mechanical Vent, Constant Order Admission Date 10/07/2023 Discharge Date 10/13/2023 Patient Instructions Discharge to [facility]. Contact your primary care provider for posthospital follow-up appointment. Follow-up with hematology for continued evaluation of recurrent lower extremity blood clotsfor hypercoagulability workup. Recommend repeat ultrasound in 1 week of the right lower extremity for continued evaluation of DVT and the right lower extremity. Follow-up with cardiology for continued evaluation of low heart rate. Follow-up with vascular surgery for continued evaluation. Continue holding aspirin and Eliquis until cleared by vascular surgery to restart anticoagulation. Your Cardizem, amiodarone, and Coreg were stopped during her hospitalization for low heart rate. You were started on metoprolol for rate control. Medications New Prescription acetaminophen (Tylenol 325 mg oral capsule)650 Milligram by mouth every 4 hours as needed Pain, scale 1-3. acetaminophen-oxyCODONE (Percocet 325/5)2 tab(s) by mouth every 4 hours as needed Pain, scale 4-6. gabapentin (gabapentin 300 mg oral capsule)1 cap by mouth three (3) times a day. glucose (glucose 50% intravenous solution)25 Milliliter IV Push As Directed as needed Hypoglycemia. insulin glargine (Lantus 100 units/mL10 ml vial solution)75 unit(s) Subcutaneous (INT) once a day. insulin lispro (HumaLOG) (HumaLOG 100 units/mL subcutaneous solution)Give 0-5 units/dose Subcutaneous three (3) times a day before meals. melatonin (melatonin 3 mg oral tablet)1 tab(s) by mouth daily at bedtime as needed Sleep. metoprolol (Lopressor)12.5 Milligram by mouth two (2) times a day. ondansetron (Zofran)4 Milligram IV Push every 4 hours as needed Nausea/Vomiting. polyethylene glycol 3350 (MiraLax oral powder for reconstitution)by mouth two (2) times a day. Unchanged amLODIPine (amLODIPine 5 mg oral tablet)1 tab(s) by mouth once a day. Refills: 0. ascorbic acid (Vitamin C 500 mg oral tablet)1 tab(s) by mouth once a day. atorvastatin (atorvastatin 20 mg oral tablet)1 tab(s) by mouth once a day for 90 Days. Refills: 1. budesonide-formoterol (budesonide-formoterol 160 mcg-4.5 mcg/inh Inhaler)2 puff(s) by inhalation every day for 90 Days. Refills: 1. bumetanide (bumetanide 1 mg oral tablet)0.5 tab(s) by mouth two (2) times a day. Refills: 2. ferrous sulfate (IRON (ferrous sulfate 325 mg) 65 mg oral tablet)1 tab(s) by mouth once a day. Takewith food.. Misc Medication (O2)2L at hs or whenever laying down. Discontinued amiodarone (amiodarone 200 mg oral tablet)1 tab(s) by mouth two (2) times a day. Refills: 1. apixaban (Eliquis 5 mg oral tablet)1 tab(s) by mouth two (2) times a day. Refills: 1. aspirin (aspirin 81 mg oral delayed release tablet)1 tab(s) by mouth every day. Refills: 0. dilTIAZem (Cardizem CD 180 mg/24 hours oral capsule, extended release)1 cap by mouth once a day. Refills: 3. DME (Pen needles 8 mm)BD UF 8mm 31 G (short)Use to inject insulin once daily. Refills: 11. furosemide (furosemide 40 mg oral tablet)1 tab(s) by mouth once a day. Refills: 2. insulin degludec (Tresiba FlexTouch 200 units/mL 3 mL subcutaneous solution)75 unit(s) Subcutaneousonce a day. metFORMIN (MetFORMIN (Eqv-Glucophage XR) 500 mg oral tablet, EXTENDED RELEASE)2 tab(s) by mouth once a day for 90 Days. Okay to fill generic metformin ER nonosmotic. Refills: 1. tirzepatide (Mounjaro 5 mg/0.5 mL subcutaneous solution)5 Milligram Subcutaneous every week. rotateinjection sites. Refills: 4. Follow Up Follow Up with NAHED MASON MD When In 2 weeks Why: Call for follow up appointment with cardiology. Where: [address] [facility] [address] [facility] [place] [address]- Follow Up with KELLIE BENITES When Within 5 to 7 days Why: Call for follow-up appointment with your primary care provider. Where: [address] [facility] [place], [place] [id number] [phone] Follow Up with JACINTA MARIANO MD, [facility], Surgery, Vascular Surgeons When In 1 week Why: Call for follow up appointment with vascular surgery. Where: [address] [facility] [address] [facility] [place] [address] [phone] Follow Up with SANG PARSONS MD When In 2 weeks Why: Call for appointment with hematology for further evaluation of recurrent blood clots. Where: [address] [facility] [place] [address] [phone] Follow Up Appointments Transfer of Care OT - Ordered -- Reason for therapy: weakness post fall, 10/13/23 11:55:00 EDT Transfer of Care PT - Ordered -- Reason for therapy: weakness post fall, 10/13/23 11:55:00 EDT Follow Up Labs/Studies Discharge Labs No Follow-up Labs Discharge Studies No Follow-up Studies Discharge Diet Transfer of Care Diet - Ordered -- Type of Diet: Regular Diet, ADA diet, 10/13/23 11:55:00 EDT Discharge Activity Transfer of Care Activity - Ordered -- As instructed by therapy, 10/13/23 11:55:00 EDT Condition on Discharge Fair Readmission Risk/Palliative Score No qualifying data available. Discharge Disposition [facility] Bed Information Provided To Patient and facility Time Spent >30 minutes spent planning, charting/chart review, and educating on discharge. Digitally Signed by NHI BENJAMIN on 10/13/2023 12:03 PM Digitally Signed by NHI BENJAMIN on 10/13/2023 03:03 PM [id number] Note Date of Service 10/12/2023 Chief Complaint weakness weakness Subjective Patient is a 68-year-old male with past medical history of DVT, previous IVC filter which was subsequently removed, a flutter on Eliquis and amiodarone, diabetes, CKD, aortic valve replacement, obesity, who presented to [place] emergency department on 10/07/2023 for complaints of mechanical fall. Patient reported he struck his right lower extremity resulting in hematoma. CT of the right lower extremity without contrast showed 2 large hematomas 11 x 5 x 28 cm and 7 x 2 x 7 cm. Patient was lacerations to the right frontal scalp. CT head showed soft tissue hematoma. Patient noted to have a drop in hemoglobin from 12- 6.5. Patient was transfused with 1 unit of packed red blood cells and started on ceftriaxone initially for concern of cellulitis. This was later discontinued. Patient was transferred to [facility] for continued treatment evaluation. Interventional radiology consulted for possible drainage of right lower extremity hematoma. IR does not recommend drainage of hematoma due to risk for repeat bleeding. Patient with right lower extremity pain which was treated with Neurontin during hospitalization. Patient did receive 1 unit of packed red blood cells on 10/10/2023 for hemoglobin of 6.9. Venous duplex positive for right femoral extremity DVT. Discussed with interventional radiology who states this appeared to be chronic. Case was also discussed with vascular surgery who recommends repeat ultrasound in 1 week. Patient to follow-up with vascular surgery in the outpatient setting. Also recommend outpatient follow-up with hematology to further evaluate hypercoagulability workup if not already completed. Continue to hold Eliquis until cleared per vascular surgery. Ju nctional rhythm resolved with holding Coreg, Cardizem, and amiodarone. Patient started on metoprolol per cardiology service. Patient seen in his room today. Patient denies any new or worsening symptoms. Patient states he had3 bowel movements yesterday evening. Patient denies any dizziness on evaluation today. Awaiting PT evaluation. Patient likely discharge to [facility] if accepted and pre-CERT obtained. Plan of care discussed with patient who is agreeable. Objective Vitals and Measurements T: 36.8 C (Oral) TMIN: 36.2 C (Oral) TMAX: 36.8 C (Oral) HR: 54(Apical) RR: 20 BP: 142/69 SpO2: 97% Intake and Output 7AM Yesterday to 7AM Today Intake and Output (Last 24 hours) Intake Oral Intake 480.00 Output Stool Count 3.00 Urine Count 5.00 Total Summary Total Intake 480.00 Total Output 0.00 Fluid Balance 480.00 Physical Exam GEN: Appears chronically ill EYES: No conjunctival erythema, drainage. EOMI EARS: Hearing grossly intact. NOSE: No nasal discharge. THROAT: Oral cavity and pharynx pink and moist. CHEST: Normal S1 and S2. Rhythm is regular. Clear to auscultation, without rales, rhonchi, wheezing. ABD: Positive bowel sounds x 4 quads. Soft, nondistended, nontender. EXT: No significant deformity or joint abnormality. No edema. Peripheral pulses intact. NEURO: Sensation grossly intact SKIN: [place], warm, dry. Large hematoma remains to right lower extremity. PSYCH: alert and oriented x 4 Weight Dosing Weight: 169 kg (10/07/23) Medications Medications (19) Active Scheduled: (12) albuterol 0.083% Soln UD (2.5mg/3 mL) 2.5 mg 3 mL, Inhalation, QIDRT amLODIPine 5 mg tablet 5 mg 1 tab(s), Oral, qDay ascorbic acid 500 mg tablet 500 mg 1 tab(s), Oral, qDay atorvastatin 20 mg tablet 20 mg 1 tab(s), Oral, qDay budesonide 0.5 mg/2 mL Susp UD 0.5 mg 2 mL, Inhalation, BIDRT bumetanide 0.5 mg tablet 0.5 mg 1 tab(s), Oral, BID gabapentin 300 mg Capsule 300 mg 1 cap(s), Oral, TID insulin glargine 75 unit(s) 0.75 mL, Subcutaneous (INT), qDay insulin lispro 100 units/mL Soln (3 mL) Give 0-5 units/dose, Subcutaneous, TIDAC metoprolol tartrate 12.5 mg ( HALF-TAB ) 12.5 mg 1 EA, Oral, BID polyethylene glycol 3350 - UD packet 17 gram(s) 15 mL, Oral, qDay polyethylene glycol 3350 - UD packet 17 gram(s) 15 mL, Oral, BID Continuous: (0) PRN: (7) acetaminophen 325 mg Tablet 650 mg 2 tab(s), Oral, q4h acetaminophen-OXYcodone 325 mg-5 mg Tablet 2 tab(s), Oral, q4h dextrose 50% Solution Disp syringe 50 mL 12.5 gram(s) 25 mL, IV Push, AsDirected melatonin 3 mg tablet 3 mg 1 tab(s), Oral, qHS melatonin 3 mg tablet 3 mg 1 tab(s), Oral, qHS ondansetron 2 mg/ 1 mL 2 mL INJ 4 mg 2 mL, IV Push, q4h polyethylene glycol 3350 - UD packet 17 gram(s) 15 mL, Oral, qDay Lab Results 10/11 04:34 WBC: 8.5 Hgb: 7.6 L Hct: 23.1 L Platelet: 316 Neutrophil %: 72.8 Glucose Level: 118 H Sodium Level: 141 Potassium Level: 5.2 H BUN: 35.0 H Creatinine Lvl (s): 1.07 10/10 04:49 WBC: 8.1 Hgb: 7.5 L Hct: 22.8 L Platelet: 268 Neutrophil %: 73.9 Glucose Level: 111 Sodium Level: 140 Potassium Level: 4.9 BUN: 37.0 H Creatinine Lvl (s): 1.21 EKG EKG - Completed -- 10/10/23 11:23:00 EDT EKG - Completed -- 10/10/23 16:55:00 EDT Assessment/Plan Right lower extremity hematoma x 2 Right forehead laceration with repair Scalp hematoma Mechanical fall Junctional rhythm A flutter HFpEF Obesity Diabetes CKD History of aortic valve replacement PAWEL Right lower extremity hematoma x 2, right forehead laceration with repair, scalp hematoma, mechanical fall -Patient presented to [facility] emergency department on 09/29/2023 for complaints of mechanical fall. Patient with right lower extremity hematoma x 2 which was confirmed on imaging. Right scalphematoma. Right forehead laceration with repair in the emergency department[facility] -Hemoglobin significantly declined from 12-6.5. Patient transfused with 1 unit of packed red blood cells. Hemoglobin stable at this time with last check of 7.1. Continue to monitor. -Interventional radiology consulted for evaluation of evacuation of hematoma. Interventional radiologist recommended to continue monitoring hemoglobin. If hemoglobin drops recommend CTA abdomen and pelvis with runoff with delayed imaging of right lower extremity to look for bleeding if positive could consider embolization. Hold Eliquis. Recommend out of bed and PT to reduce risk of DVT. Patient with risk for formation of below-knee DVT. Would not recommend IVC filter unless DVT above the knee or shows propagation of DVT over 2 ultrasounds a few days apart. Drainage of hematoma not recommendedas hematoma can tamponade bleeding area. Decompression could cause continued bleeding. -Continue to hold Eliquis -Rocephin discontinued. No concern of cellulitis at this time. -PT OT consult. Appreciate input. -Neurontin uptitrated for continued management of burning pain to right lower extremity. -Hemoglobin 6.9 on 10/10/2023. Patient treated with 1 unit of packed red blood cells. Hemoglobin increased to 8.3. -Venous duplex positive for proximal femoral right lower extremity DVT. Discussed with interventional radiology who states this appears to be chronic. We will order follow-up ultrasound on discharge to continue to monitor. -Patient seen and evaluated by wound care physician as requested per wound nurse. Recommend to continue Adaptic daily dressing changes. Constipation, resolved -BM x3 on 10/10/2022 Junctional rhythm, resolved -Rapid response x 2 called on 10/10/2023 for bradycardia. EKG showed junctional rhythm with prolonged QT. Carvedilol and amiodarone suspended. Cardiology consulted. Appreciate input. -Patient sinus bradycardia on heart monitor. Continue to hold carvedilol Cardizem and amiodarone. Atrial flutter -Eliquis on hold secondary to hematoma -Started on metoprolol per cardiology. Diabetes -Continue Lantus. Accu-Cheks before meals and at bedtime with sliding scale insulin. -ADA diet. HFpEF -Continue Bumex Obesity, complicating all aspects of care CKD, stable PAWEL -Continue CPAP as per home DVT prophylaxis: Chemical anticoagulation on hold secondary to significant drop in bleeding secondary to large hematoma following mechanical Fall on Eliquis. Unable to apply SCDs due to large hematoma on the right lower extremity. PT and OT consult pending. Likely patient will require inpatient therapy on discharge. We will await recommendations. Patient will likely require hospitalization until Wednesday for discharge planning. Plan of care discussed with patient who is agreeable. Case discussed with collaborating physician Dr. Montenegro. Digitally Signed by NHI BENJAMIN on 10/12/2023 02:13 PM [id number] Note Date of Service 10/12/2023 Chief Complaint weakness weakness Subjective Patient is a 68-year-old male with past medical history of DVT, previous IVC filter which was subsequently removed, a flutter on Eliquis and amiodarone, diabetes, CKD, aortic valve replacement, obesity, who presented to [place] emergency department on 10/07/2023 for complaints of mechanical fall. Patient reported he struck his right lower extremity resulting in hematoma. CT of the right lower extremity without contrast showed 2 large hematomas 11 x 5 x 28 cm and 7 x 2 x 7 cm. Patient was lacerations to the right frontal scalp. CT head showed soft tissue hematoma. Patient noted to have a drop in hemoglobin from 12- 6.5. Patient was transfused with 1 unit of packed red blood cells and started on ceftriaxone initially for concern of cellulitis. This was later discontinued. Patient was transferred to [facility] for continued treatment evaluation. Interventional radiology consulted for possible drainage of right lower extremity hematoma. IR does not recommend drainage of hematoma due to risk for repeat bleeding. Patient with right lower extremity pain which was treated with Neurontin during hospitalization. Patient did receive 1 unit of packed red blood cells on 10/10/2023 for hemoglobin of 6.9. Venous duplex positive for right femoral extremity DVT. Discussed with interventional radiology who states this appeared to be chronic. Case was also discussed with vascular surgery who recommends repeat ultrasound in 1 week. Patient to follow-up with vascular surgery in the outpatient setting. Also recommend outpatient follow-up with hematology to further evaluate hypercoagulability workup if not already completed. Continue to hold Eliquis until cleared per vascular surgery. Ju nctional rhythm resolved with holding Coreg, Cardizem, and amiodarone. Patient started on metoprolol per cardiology service. Patient seen in his room today. Patient denies any new or worsening symptoms. Patient states he had3 bowel movements yesterday evening. Patient denies any dizziness on evaluation today. Awaiting PT evaluation. Patient likely discharge to [facility] if accepted and pre-CERT obtained. Plan of care discussed with patient who is agreeable. Objective Vitals and Measurements T: 36.8 C (Oral) TMIN: 36.2 C (Oral) TMAX: 36.8 C (Oral) HR: 54(Apical) RR: 20 BP: 142/69 SpO2: 97% Intake and Output 7AM Yesterday to 7AM Today Intake and Output (Last 24 hours) Intake Oral Intake 480.00 Output Stool Count 3.00 Urine Count 5.00 Total Summary Total Intake 480.00 Total Output 0.00 Fluid Balance 480.00 Physical Exam GEN: Appears chronically ill EYES: No conjunctival erythema, drainage. EOMI EARS: Hearing grossly intact. NOSE: No nasal discharge. THROAT: Oral cavity and pharynx pink and moist. CHEST: Normal S1 and S2. Rhythm is regular. Clear to auscultation, without rales, rhonchi, wheezing. ABD: Positive bowel sounds x 4 quads. Soft, nondistended, nontender. EXT: No significant deformity or joint abnormality. No edema. Peripheral pulses intact. NEURO: Sensation grossly intact SKIN: [place], warm, dry. Large hematoma remains to right lower extremity. PSYCH: alert and oriented x 4 Weight Dosing Weight: 169 kg (10/07/23) Medications Medications (19) Active Scheduled: (12) albuterol 0.083% Soln UD (2.5mg/3 mL) 2.5 mg 3 mL, Inhalation, QIDRT amLODIPine 5 mg tablet 5 mg 1 tab(s), Oral, qDay ascorbic acid 500 mg tablet 500 mg 1 tab(s), Oral, qDay atorvastatin 20 mg tablet 20 mg 1 tab(s), Oral, qDay budesonide 0.5 mg/2 mL Susp UD 0.5 mg 2 mL, Inhalation, BIDRT bumetanide 0.5 mg tablet 0.5 mg 1 tab(s), Oral, BID gabapentin 300 mg Capsule 300 mg 1 cap(s), Oral, TID insulin glargine 75 unit(s) 0.75 mL, Subcutaneous (INT), qDay insulin lispro 100 units/mL Soln (3 mL) Give 0-5 units/dose, Subcutaneous, TIDAC metoprolol tartrate 12.5 mg ( HALF-TAB ) 12.5 mg 1 EA, Oral, BID polyethylene glycol 3350 - UD packet 17 gram(s) 15 mL, Oral, qDay polyethylene glycol 3350 - UD packet 17 gram(s) 15 mL, Oral, BID Continuous: (0) PRN: (7) acetaminophen 325 mg Tablet 650 mg 2 tab(s), Oral, q4h acetaminophen-OXYcodone 325 mg-5 mg Tablet 2 tab(s), Oral, q4h dextrose 50% Solution Disp syringe 50 mL 12.5 gram(s) 25 mL, IV Push, AsDirected melatonin 3 mg tablet 3 mg 1 tab(s), Oral, qHS melatonin 3 mg tablet 3 mg 1 tab(s), Oral, qHS ondansetron 2 mg/ 1 mL 2 mL INJ 4 mg 2 mL, IV Push, q4h polyethylene glycol 3350 - UD packet 17 gram(s) 15 mL, Oral, qDay Lab Results 10/11 04:34 WBC: 8.5 Hgb: 7.6 L Hct: 23.1 L Platelet: 316 Neutrophil %: 72.8 Glucose Level: 118 H Sodium Level: 141 Potassium Level: 5.2 H BUN: 35.0 H Creatinine Lvl (s): 1.07 10/10 04:49 WBC: 8.1 Hgb: 7.5 L Hct: 22.8 L Platelet: 268 Neutrophil %: 73.9 Glucose Level: 111 Sodium Level: 140 Potassium Level: 4.9 BUN: 37.0 H Creatinine Lvl (s): 1.21 EKG EKG - Completed -- 10/10/23 11:23:00 EDT EKG - Completed -- 10/10/23 16:55:00 EDT Assessment/Plan Right lower extremity hematoma x 2 Right forehead laceration with repair Scalp hematoma Mechanical fall Junctional rhythm A flutter HFpEF Obesity Diabetes CKD History of aortic valve replacement PAWEL Right lower extremity hematoma x 2, right forehead laceration with repair, scalp hematoma, mechanical fall -Patient presented to [facility] emergency department on 09/29/2023 for complaints of mechanical fall. Patient with right lower extremity hematoma x 2 which was confirmed on imaging. Right scalphematoma. Right forehead laceration with repair in the emergency department. [facility] -Hemoglobin significantly declined from 12-6.5. Patient transfused with 1 unit of packed red blood cells. Hemoglobin stable at this time with last check of 7.1. Continue to monitor. -Interventional radiology consulted for evaluation of evacuation of hematoma. Interventional radiologist recommended to continue monitoring hemoglobin. If hemoglobin drops recommend CTA abdomen and pelvis with runoff with delayed imaging of right lower extremity to look for bleeding if positive could consider embolization. Hold Eliquis. Recommend out of bed and PT to reduce risk of DVT. Patient with risk for formation of below-knee DVT. Would not recommend IVC filter unless DVT above the knee or shows propagation of DVT over 2 ultrasounds a few days apart. Drainage of hematoma not recommended as hematoma can tamponade bleeding area. Decompression could cause continued bleeding. -Continue to hold Eliquis -Rocephin discontinued. No concern of cellulitis at this time. -PT OT consult. Appreciate input. -Neurontin uptitrated for continued management of burning pain to right lower extremity. -Hemoglobin 6.9 on 10/10/2023. Patient treated with 1 unit of packed red blood cells. Hemoglobin increased to 8.3. -Venous duplex positive for proximal femoral right lower extremity DVT. Discussed with interventional radiology who states this appears to be chronic. We will order follow-up ultrasound on discharge to continue to monitor. -Patient seen and evaluated by wound care physician as requested per wound nurse. Recommend to continue Adaptic daily dressing changes. Constipation, resolved -BM x3 on 10/10/2022 Junctional rhythm, resolved -Rapid response x 2 called on 10/10/2023 for bradycardia. EKG showed junctional rhythm with prolonged QT. Carvedilol and amiodarone suspended. Cardiology consulted. Appreciate input. -Patient sinus bradycardia on heart monitor. Continue to hold carvedilol Cardizem and amiodarone. Atrial flutter -Eliquis on hold secondary to hematoma -Started on metoprolol per cardiology. Diabetes -Continue Lantus. Accu-Cheks before meals and at bedtime with sliding scale insulin. -ADA diet. HFpEF -Continue Bumex Obesity, complicating all aspects of care CKD, stable PAWEL -Continue CPAP as per home DVT prophylaxis: Chemical anticoagulation on hold secondary to significant drop in bleeding secondary to large hematoma following mechanical Fall on Eliquis. Unable to apply SCDs due to large hematoma on the right lower extremity. PT and OT consult pending. Likely patient will require inpatient therapy on discharge. We will await recommendations. Patient will likely require hospitalization until Wednesday for discharge planning. Plan of care discussed with patient who is agreeable. Case discussed with collaborating physician Dr. Montenegro. Digitally Signed by NHI BENJAMIN on 10/12/2023 02:13 PM [id number] Consult note Date of Service October 12, 2023 Reason for Consultation Nonpressure ulcers right lower leg Hematoma to the right lower leg Morbid obesity Chronic kidney disease DVT Long-term anticoagulants. Referring Physician Hospitalist History of Present Illness This is a 68-year-old morbidly obese male with history of fall patient has developed hematoma to the right lower leg which is extensive patient patient also has history of kidney disease presently admitted because of a very large expanding hematoma of the leg. Review of Systems He had a past history of DVTs diabetes mellitus type 2 chronic kidney disease and hypertension Physical Exam Vitals and Measurements T: 36.8 C (Oral) TMIN: 36.2 C (Oral) TMAX: 36.8 C (Oral) HR: 57 RR: 20 BP: 142/69 SpO2: 97% Weight Dosing Weight: 169 kg (10/07/23) Is fairly obese large 68-year-old male with a history of long-term anticoagulation patient has slipped fell and down had developed a very large hematoma on the right lower leg on the lateral side of the there are several open wounds with some blister formation measuring about 7 x 7 cm to about 3 x 3 cm there but 3 of 4 of them some of the . there is hematoma locally into the deep subcutaneous tissues and is not causing any damage to the skin except for 2 or 3 areas which are numbered as nonpressure ulcers. Rest of the skin appears to be intact. No evidence of any circulatory compromise noticed. Lab Results 10/11 04:34 WBC: 8.5 Hgb: 7.6 L Hct: 23.1 L Platelet: 316 Neutrophil %: 72.8 Glucose Level: 118 H Sodium Level: 141 Potassium Level: 5.2 H BUN: 35.0 H Creatinine Lvl (s): 1.07 04/ 04:49 WBC: 8.1 Hgb: 7.5 L Hct: 22.8 L Platelet: 268 Neutrophil %: 73.9 Glucose Level: 111 Sodium Level: 140 Potassium Level: 4.9 BUN: 37.0 H Creatinine Lvl (s): 1.21 Assessment/Plan Diabetes mellitus type 2 Recommend the dressing as before with Adaptic and dry sterile dressings which can be changed on a daily basis. So far as the hematoma is concerned most of the people are agreeing that it should be observed for the time being until his blood studies are within normal limits. Problem List/Past Medical History Ongoing Acute embolism and thrombosis of deep vein of left distal leg Aftercare following surgery AORTIC VALVE DISEASE Apnea, sleep Atrial flutter 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 Left, 6.6-cm, LP, posterior. *MMP-morbid obesity, CKD, DM, HTN, CHF, DVT/PE. *BT-Coumadin, ASA. Right hip pain S/P AVR (aortic valve replacement) SOB (shortness of breath) Historical Bowel infarction Procedure/Surgical History Cardioversion: 2022 Repair of inguinal hernia Bladder IVC - Insertion of inferior vena caval filter IVC - Removal of inferior vena caval filter Colectomy Aortic valve Medications Inpatient albuterol 2.5 mg/3 mL (0.083%) inhalation solution, 2.5 mg= 3 mL, Inhalation, QIDRT amLODIPine, 5 mg= 1 tab(s), Oral, qDay atorvastatin, 20 mg= 1 tab(s), Oral, qDay bumetanide, 0.5 mg= 1 tab(s), Oral, BID Dextrose 50% IV Push, 12.5 gram(s)= 25 mL, IV Push, AsDirected, PRN gabapentin, 300 mg= 1 cap(s), Oral, TID HumaLOG 100 units/mL subcutaneous solution, Give 0-5 units/dose, Subcutaneous, TIDAC Lantus, 75 unit(s)= 0.75 mL, Subcutaneous (INT), qDay Lopressor, 12.5 mg= 1 EA, Oral, BID melatonin, 3 mg= 1 tab(s), Oral, qHS, PRN melatonin, 3 mg= 1 tab(s), Oral, qHS, PRN Miralax Powder Packet, 17 gram(s)= 15 mL, Oral, qDay Miralax Powder Packet, 17 gram(s)= 15 mL, Oral, BID Miralax Powder Packet, 17 gram(s)= 15 mL, Oral, qDay, PRN Percocet 325/5, 2 tab(s), Oral, q4h, PRN Pulmicort Respules 0.5 mg/2 mL inhalation suspension, 0.5 mg= 2 mL, Inhalation, BIDRT Tylenol, 650 mg= 2 tab(s), Oral, q4h, PRN Vitamin C, 500 mg= 1 tab(s), Oral, qDay Zofran, 4 mg= 2 mL, IV Push, q4h, PRN Home amiodarone 200 mg oral tablet, 200 mg= 1 tab(s), Oral, BID, 1 refills amLODIPine 5 mg oral tablet, 5 mg= 1 tab(s), Oral, qDay aspirin 81 mg oral delayed release tablet, 81 mg= 1 tab(s), Oral, Daily, 1 refills aspirin 81 mg oral delayed release tablet, 81 mg= 1 tab(s), Oral, Daily atorvastatin 20 mg oral tablet, 20 mg= 1 tab(s), Oral, qDay, 1 refills budesonide-formoterol 160 mcg-4.5 mcg/inh Inhaler, 2 puff(s), Inhalation, Daily, 1 refills bumetanide 1 mg oral tablet, 0.5 mg= 0.5 tab(s), Oral, BID, 2 refills Cardizem CD 180 mg/24 hours oral capsule, extended release, 180 mg= 1 cap(s), Oral, qDay, 3 refills carvedilol 25 mg oral tablet, 25 mg= 1 tab(s), Oral, BID, 1 refills Eliquis 5 mg oral tablet, 5 mg= 1 tab(s), Oral, BID, 1 refills furosemide 40 mg oral tablet, 40 mg= 1 tab(s), Oral, qDay, 2 refills IRON (ferrous sulfate 325 mg) 65 mg oral tablet, 325 mg= 1 tab(s), Oral, qDay MetFORMIN (Eqv-Glucophage XR) 500 mg oral tablet, EXTENDED RELEASE, 1000 mg= 2 tab(s), Oral, qDay, 1 refills Mounjaro 5 mg/0.5 mL subcutaneous solution, 5 mg, Subcutaneous, qWeek, 4 refills O2 Pen needles 8 mm, See Instructions, 11 refills Tresiba FlexTouch 200 units/mL 3 mL subcutaneous solution, 75 unit(s), Subcutaneous, qDay Vitamin C 500 mg oral tablet, 500 mg= 1 tab(s), Oral, qDay Allergies Nuprin (Unknown) misc non-codified allergy (unknown) Social History Smoking Status - 11/02/2017 Former smoker Alcohol - Denies Alcohol Use, 11/02/2017 Use: Past., 04/23/2023 Home/Environment Domestic Concerns: None. Living situation: Home/Independent. 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 Current HomeTreatments Oxygen therapy, CPAP. Professional Skilled Services or Special Community Resources None., 02/28/2021 Nutrition/Health Type of diet: Just started seeing nutrionist at [facility], doesn't eat much fruits or veggies. Drinks milk.. Appetite Good. Eating Difficulties None. Caffeine intake amount: coffee once a week., 04/23/2023 Substance Abuse - Denies Substance Abuse, 11/02/2017 Use: Never., 02/09/2019 Tobacco Nicotine Use: Former smoker, quit more than 30 days ago. Type: Cigarettes. Number of years: 30. Stopped at age: 45 Years., 02/28/2021 Family History Bladder cancer: Negative: Mother, Father and Sister. Cancer: Brother. Diabetes mellitus: Mother. Prostate cancer: Negative: Mother, Father and Brother. Renal cancer: Brother.Negative: Mother, Father and Sister. Sleep apnea: Sister. Immunizations pneumococcal 13-valent conjugate vaccine: 0.5 unknown unit (06/16/17) pneumococcal 23-valent vaccine(Pneumovax: 0.5 unknown unit (06/13/18) pneumococcal 23-valent vaccine(Pneumovax: 0 unknown unit (07/14/16) pneumococcal 23-valent vaccine(Pneumovax: 0 unknown unit (07/10/16) pneumococcal 23-valent vaccine(Pneumovax: 0 unknown unit (05/08/99) SARS-CoV-2 (COVID-19) mRNA-1273 vaccine: 50 mcg (03/05/22) SARS-CoV-2 (COVID-19) mRNA-1273 vaccine: 50 mcg (06/23/21) SARS-CoV-2 mRNA (tozinameran) vaccine: 0.5 unknown unit (10/26/20) SARS-CoV-2 mRNA (tozinameran) vaccine: 0.5 unknown unit (10/05/20) tetanus/diphth/pertuss (Tdap) adult/adol: 0.5 mL (01/04/23) zoster vaccine live: 1 unknown unit (06/16/17) Digitally Signed by DAYANA TOMLINSON MD on 10/12/2023 12:52 PM [id number] Progress note Date of Service 10/12/2023 Subjective Patient was seen and examined sitting up in bedside chair. He denies any acute complaints or overnight concerns. Objective Vitals and Measurements T: 36.8 C (Oral) TMIN: 36.2 C (Oral) TMAX: 36.8 C (Oral) HR: 62 RR: 20 BP: 142/69 SpO2: 97% Intake and Output 7AM Yesterday to 7AM Today Intake and Output (Last 24 hours) Intake Oral Intake 960.00 Output Stool Count 3.00 Urine Count 5.00 Total Summary Total Intake 960.00 Total Output 0.00 Fluid Balance 960.00 Physical Exam General Appearance: Middle aged male, receiving supplemental O2 via nasal cannula Head: Normocephalic, right periorbital ecchymosis noted EENT: Sclera anicteric, oral mucosa moist, no pharyngeal erythema Neck: Supple, no JVD Cardiac: Regular rate and rhythm, no murmur Respiratory: Clear to auscultation bilaterally, no wheeze or crackles Abdomen: Soft, nontender to deep palpation, normoactive bowel sounds Musculoskeletal: No joint deformity, Right lower extremity: Ecchymosis noted extending up along the entire aspect of the leg, with x 3 blisters actively leading with underlying chronic venous changes. Tenderness appreciated on palpation. Left lower extremity: Chronic venous changes noted with hyperpigmentation Neurological: Alert and oriented x3, no focal deficit Skin: Warm and dry, no rash Psychiatric: Normal mood and affect Weight Dosing Weight: 169 kg (10/07/23) Medications Medications (19) Active Scheduled: (12) albuterol 0.083% Soln UD (2.5mg/3 mL) 2.5 mg 3 mL, Inhalation, QIDRT amLODIPine 5 mg tablet 5 mg 1 tab(s), Oral, qDay ascorbic acid 500 mg tablet 500 mg 1 tab(s), Oral, qDay atorvastatin 20 mg tablet 20 mg 1 tab(s), Oral, qDay budesonide 0.5 mg/2 mL Susp UD 0.5 mg 2 mL, Inhalation, BIDRT bumetanide 0.5 mg tablet 0.5 mg 1 tab(s), Oral, BID gabapentin 300 mg Capsule 300 mg 1 cap(s), Oral, TID insulin glargine 75 unit(s) 0.75 mL, Subcutaneous (INT), qDay insulin lispro 100 units/mL Soln (3 mL) Give 0-5 units/dose, Subcutaneous, TIDAC metoprolol tartrate 12.5 mg ( HALF-TAB ) 12.5 mg 1 EA, Oral, BID polyethylene glycol 3350 - UD packet 17 gram(s) 15 mL, Oral, qDay polyethylene glycol 3350 - UD packet 17 gram(s) 15 mL, Oral, BID Continuous: (0) PRN: (7) acetaminophen 325 mg Tablet 650 mg 2 tab(s), Oral, q4h acetaminophen-OXYcodone 325 mg-5 mg Tablet 2 tab(s), Oral, q4h dextrose 50% Solution Disp syringe 50 mL 12.5 gram(s) 25 mL, IV Push, AsDirected melatonin 3 mg tablet 3 mg 1 tab(s), Oral, qHS melatonin 3 mg tablet 3 mg 1 tab(s), Oral, qHS ondansetron 2 mg/ 1 mL 2 mL INJ 4 mg 2 mL, IV Push, q4h polyethylene glycol 3350 - UD packet 17 gram(s) 15 mL, Oral, qDay Lab Results 10/11 04:34 WBC: 8.5 Hgb: 7.6 L Hct: 23.1 L Platelet: 316 Neutrophil %: 72.8 Glucose Level: 118 H Sodium Level: 141 Potassium Level: 5.2 H BUN: 35.0 H Creatinine Lvl (s): 1.07 10/10 04:49 WBC: 8.1 Hgb: 7.5 L Hct: 22.8 L Platelet: 268 Neutrophil %: 73.9 Glucose Level: 111 Sodium Level: 140 Potassium Level: 4.9 BUN: 37.0 H Creatinine Lvl (s): 1.21 EKG EKG - Completed -- 10/10/23 11:23:00 EDT EKG - Completed -- 10/10/23 16:55:00 EDT Assessment/Plan Paroxysmal A-fib Previous Junctional rhythm Atrial flutter s/p cardioversion HFpEF Comorbidities :atrial flutter s/p cardioversion on 01/26/2023,S/P AVR in 2016, HFpEF, T2DM, CKD stage III, morbid obesity, PAWEL on CPAP, history of left 6.6 cm renal mass. PLAN: Patient is hemodynamically stable, denies any chest pain or discomfort. Telemetry reviewed this morning, patient appears to have reverted to sinus rhythm at this time. Will start Lopressor 12.5 mg p.o. twice daily. With hold parameters if heart rate < 50 Eliquis has been held in light of left lower extremity hematoma and recent drop in Hb. His recent Hb this morning 7.6. If risk of restarting anticoagulation outweighs benefits then patient may be a candidate for watchman's device. Keep potassium >4 and magnesium > 2 Thank you for allowing us to take part in the management of this patient. We will continue to follow Case and management discussed with attending , please see addendum for any further changes to the plan. Digitally Signed by JAQUELIN WORTHY MD on 10/12/2023 11:23 AM Digitally Signed by NEPTALI LIZAMA [id number] Note Reason for Consultation Admission From: Home Consult to Skin Team Nurse - Ordered -- 10/09/23 21:13:00 EDT, Impaired skin integrity, hematoma on right leg that opened Skin Team Findings Vitals and Measurements T: 36.8 C (Oral) TMIN: 36.4 C (Oral) TMAX: 36.8 C (Oral) HR: 46 RR: 18 BP: 135/66 SpO2: 99% Pressure Area Details ------Incision/Wound------ Calf Right Anterior, Lateral, Proximal - Incision, Wound Dressing/Activity: Open to air Calf Right Anterior, Lateral, Proximal - Incision, Wound Surrounding Tissue: Erythema, Pigmentationincreased, Weeping Calf Right Anterior, Lateral, Proximal - Non-Pressure Ulcer Type: Other: s/p hematoma Calf Right Anterior, Lateral, Proximal - Skin Abnormality Color: Black, Maroon, Purple, Red Calf Right Anterior, Lateral, Proximal - Skin Abnormality Pattern: Flat Calf Right Anterior, Lateral, Proximal - Skin Abnormality Type: Non-pressure ulcer Calf Right Anterior, Lateral, Proximal - Wound Bed Tissue Type: Granulation, Necrotic tissue, eschar, Other: skin flap Calf Right Anterior, Lateral, Proximal - Wound Exudate Amount: Moderate Calf Right Anterior, Lateral, Proximal - Wound Exudate Odor: None Calf Right Anterior, Lateral, Proximal - Wound Exudate Type: Serosanguineous Calf Right Anterior, Lateral, Proximal - Wound Percent Granulated: 50 % Calf Right Anterior, Lateral, Proximal - Wound Percent Necrotic Tissue Eschar: 30 % Calf Right Distal, Lateral - Incision, Wound Dressing/Activity: Open to air Calf Right Distal, Lateral - Incision, Wound Surrounding Tissue: Erythema, Pigmentation increased, Weeping Calf Right Distal, Lateral - Non-Pressure Ulcer Type: Other: s/p hematoma Calf Right Distal, Lateral - Skin Abnormality Color: Black, Maroon, Red Calf Right Distal, Lateral - Skin Abnormality Pattern: Raised, Flat, Other: half blood filled blister; other half is necrotic eschar Calf Right Distal, Lateral - Skin Abnormality Type: Non-pressure ulcer Calf Right Distal, Lateral - Wound Bed Tissue Type: Necrotic tissue, eschar, Other: Blood filled blister Calf Right Distal, Lateral - Wound Exudate Amount: Moderate Calf Right Distal, Lateral - Wound Exudate Odor: None Calf Right Distal, Lateral - Wound Exudate Type: Serosanguineous Calf Right Distal, Lateral - Wound Percent Necrotic Tissue Eschar: 50 % Calf Right Lateral, Middle - Incision, Wound Surrounding Tissue: Erythema, Edematous, Pigmentation increased, Weeping Calf Right Lateral, Middle - Non-Pressure Ulcer Type: Other: s//p hematoma Calf Right Lateral, Middle - Skin Abnormality Color: Black, Maroon, Purple, Red Calf Right Lateral, Middle - Skin Abnormality Type: Non-pressure ulcer Calf Right Lateral, Middle - Wound Bed Tissue Type: Granulation, Necrotic tissue, eschar Calf Right Lateral, Middle - Wound Exudate Amount: Moderate Calf Right Lateral, Middle - Wound Exudate Odor: None Calf Right Lateral, Middle - Wound Exudate Type: Serosanguineous Calf Right Lateral, Middle - Wound Percent Granulated: 40 % Calf Right Lateral, Middle - Wound Percent Necrotic Tissue Eschar: 60 % Eye Right - Incision, Wound Distribution: Localized Eye Right - Skin Abnormality Color: Maroon, Purple Eye Right - Skin Abnormality Pattern: Other: periorbital Eye Right - Skin Abnormality Type: Bruise Eyebrow Right - Incision, Wound Dressing/Activity: Open to air with dried sanguinous drainage Eyebrow Right - Skin Abnormality Type: Laceration Leg Left - Incision, Wound Dressing/Activity: Open to air Leg Left - Incision, Wound Surrounding Tissue: Pigmentation increased(Hemosiderin staining) Leg Left - Skin Abnormality Color: Red, Yellow Leg Left - Skin Abnormality Pattern: Raised, Other: scabbed Leg Left - Skin Abnormality Type: Abrasion Leg Left - Wound Associated Pain: None Leg Left - Wound Exudate Amount: None Leg Left - Wound Exudate Odor: Faint Leg Left - Wound Exudate Type: Serosanguineous ------Incision/Wound Measurements------ Calf Right Anterior, Lateral, Proximal - Incision, Wound Depth: 0.1 cm Calf Right Anterior, Lateral, Proximal - Incision, Wound Length: 5.5 cm Calf Right Anterior, Lateral, Proximal - Incision, Wound Width: 5 cm Calf Right Distal, Lateral - Incision, Wound Depth: 0.1 cm Calf Right Distal, Lateral - Incision, Wound Length: 11 cm Calf Right Distal, Lateral - Incision, Wound Width: 9.5 cm Calf Right Lateral, Middle - Incision, Wound Depth: 0.1 cm Calf Right Lateral, Middle - Incision, Wound Length: 9 cm Calf Right Lateral, Middle - Incision, Wound Width: 8 cm Assessments and Recommendations ------Assessments------ Current Skin/Wound Interventions: Low air loss mattress, Bariatric bed, Other: Patient up in chair at time of consult ------Recommendations------ Recommended Skin/Wound Interventions: Low air loss mattress, Bariatric bed, Seat cushion, Turn and position system, Turn and reposition every 2 hours, Other: Order recommendations approved for Adaptic/ABD/Gauze roll to Right calf wounds until further instructions from plastics consult. Additional Skin Team Comments: Patient is up in chair and unable to evaluate buttocks(No impaired issues documented). Due to bleeding risks, I recommended consult to plastics to determine if autolytic debridement of necrotic eschar would be appropriate. Patient developed hematomas s/p fall and being down on right side until assistance was available. Patient had been on Eliquis at the time of fall. Problem List/Past Medical History Ongoing Acute embolism and thrombosis of deep vein of left distal leg Aftercare following surgery AORTIC VALVE DISEASE Apnea, sleep Atrial flutter 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 Left, 6.6-cm, LP, posterior. *MMP-morbid obesity, CKD, DM, HTN, CHF, DVT/PE. *BT-Coumadin, ASA. Right hip pain S/P AVR (aortic valve replacement) SOB (shortness of breath) Historical Bowel infarction Digitally Signed by QUIN Saul October on 10/11/2023 04:25 PM [id number] Cardiology Consult note Date of Service 10/11/2023 Reason for Consultation Junctional rhythm Referring Physician Dr. Danie Alberto MD History of Present Illness Patient is a 68-year-old Georgian-speaking male with a past medical history of atrial flutter s/p cardioversion on 01/26/2023,S/P AVR in 2016, HFpEF, T2DM, CKD stage III, morbid obesity, PAWEL on CPAP, history of left 6.6 cm renal mass. Patient sustained a mechanical fall on 10/03/2023, where he presented to [facility]. He had a CT head which showed right frontal laceration and soft tissue hematoma. CT facial bones/C-spine showed no acute traumatic injury. CT tibia and fibula showed large hematoma in the lateral superficial adipose tissues and extending nearly the entire length of the tibia. Additional small hematoma in theanterior lateral soft tissues near the femur. Due to the extent of these injuries he was subsequently transferred to [facility] 10/07/2023 for further evaluation. During his [facility] 10/09 rapid response was called due to altered mental status. Patient was found to be bradycardic with heart rate in the low 40s, this subsequently improved. It is presumed that his bradycardia was secondary to carvedilol administration. EKG was done, thisshowed concerns for junctional rhythm and cardiology was consulted for further evaluation. Patient denies any chest pain, palpitations. He reports that he has chronic dyspnea and this has not changed. Review of Systems Review of system completed, all pertinent positives and negatives as mentioned above in HPI Physical Exam Vitals and Measurements T: 36.5 C (Axillary) TMIN: 36.4 C (Oral) TMAX: 36.7 C (Oral) HR: 56 RR: 20 BP: 118/53 SpO2: 94% Weight Dosing Weight: 169 kg (10/07/23) General Appearance: Middle aged male, receiving supplemental O2 via nasal cannula Head: Normocephalic, right periorbital ecchymosis noted EENT: Sclera anicteric, oral mucosa moist, no pharyngeal erythema Neck: Supple, no JVD Cardiac: Regular rate and rhythm, no murmur Respiratory: Clear to auscultation bilaterally, no wheeze or crackles Abdomen: Soft, nontender to deep palpation, normoactive bowel sounds Musculoskeletal: No joint deformity, Right lower extremity: Ecchymosis noted extending up along the entire aspect of the leg, with x 3 blisters actively leading with underlying chronic venous changes. Tenderness appreciated on palpation. Left lower extremity: Chronic venous changes noted with hyperpigmentation Neurological: Alert and oriented x3, no focal deficit Skin: Warm and dry, no rash Psychiatric: Normal mood and affect Lab Results 10/10 04:49 WBC: 8.1 Hgb: 7.5 L Hct: 22.8 L Platelet: 268 Neutrophil %: 73.9 Glucose Level: 111 Sodium Level: 140 Potassium Level: 4.9 BUN: 37.0 H Creatinine Lvl (s): 1.21 10/09 14:02 Hgb: 7.8 L Hct: 23.1 L 10/09 12:07 Hgb: 8.3 L Hct: 24.6 L 10/09 03:36 WBC: 7.5 Hgb: 6.9 C Hct: 21.1 L Platelet: 242 Neutrophil %: 74.9 Glucose Level: 130 H Sodium Level: 140 Potassium Level: 4.7 BUN: 34.0 H Creatinine Lvl (s): 1.12 Assessment/Plan Junctional rhythm Atrial flutter s/p cardioversion HFpEF Comorbidities :atrial flutter s/p cardioversion on 01/26/2023,S/P AVR in 2016, HFpEF, T2DM, CKD stage III, morbid obesity, PAWEL on CPAP, history of left 6.6 cm renal mass. PLAN: Patient is hemodynamically stable, denies any chest pain or discomfort. 12 lead EKG reviewed, agreewith junctional rhythm. Will discontinue carvedilol and Cardizem at this time and continue to observe for improvement in heart rate. If no improvement in heart rate then we will consider consulting EP. Cari has been held in light of left lower extremity hematoma and recent drop in Hb. His recent Hb this morning 7.5 Keep potassium >4 and magnesium > 2 Thank you for allowing us to take part in the management of this patient. We will continue to follow Case and management discussed with attending Dr. Mason, please see addendum for any further changes to the plan. Problem List/Past Medical History Ongoing Acute embolism and thrombosis of deep vein of left distal leg Aftercare following surgery AORTIC VALVE DISEASE Apnea, sleep Atrial flutter 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 Left, 6.6-cm, LP, posterior. *MMP-morbid obesity, CKD, DM, HTN, CHF, DVT/PE. *BT-Coumadin, ASA. Right hip pain S/P AVR (aortic valve replacement) SOB (shortness of breath) Historical Bowel infarction Procedure/Surgical History Cardioversion: 2022 Repair of inguinal hernia IVC - Insertion of inferior vena caval filter IVC - Removal of inferior vena caval filter Bladder Colectomy Aortic valve Medications Inpatient albuterol 2.5 mg/3 mL (0.083%) inhalation solution, 2.5 mg= 3 mL, Inhalation, QIDRT amLODIPine, 5 mg= 1 tab(s), Oral, qDay atorvastatin, 20 mg= 1 tab(s), Oral, qDay bumetanide, 0.5 mg= 1 tab(s), Oral, BID Cardizem CD 180 mg/24 hours oral capsule, extended release, 180 mg= 1 cap(s), Oral, qDay carvedilol 25 mg oral tablet, 12.5 mg= 0.5 tab(s), Oral, BID Dextrose 50% IV Push, 12.5 gram(s)= 25 mL, IV Push, AsDirected, PRN gabapentin, 300 mg= 1 cap(s), Oral, TID HumaLOG 100 units/mL subcutaneous solution, Give 0-5 units/dose, Subcutaneous, TIDAC Lantus, 75 unit(s)= 0.75 mL, Subcutaneous (INT), qDay melatonin, 3 mg= 1 tab(s), Oral, qHS, PRN melatonin, 3 mg= 1 tab(s), Oral, qHS, PRN Miralax Powder Packet, 17 gram(s)= 15 mL, Oral, qDay Miralax Powder Packet, 17 gram(s)= 15 mL, Oral, BID Miralax Powder Packet, 17 gram(s)= 15 mL, Oral, qDay, PRN Percocet 325/5, 2 tab(s), Oral, q4h, PRN Pulmicort Respules 0.5 mg/2 mL inhalation suspension, 0.5 mg= 2 mL, Inhalation, BIDRT Tylenol, 650 mg= 2 tab(s), Oral, q4h, PRN Vitamin C, 500 mg= 1 tab(s), Oral, qDay Zofran, 4 mg= 2 mL, IV Push, q4h, PRN Home amiodarone 200 mg oral tablet, 200 mg= 1 tab(s), Oral, BID, 1 refills amLODIPine 5 mg oral tablet, 5 mg= 1 tab(s), Oral, qDay aspirin 81 mg oral delayed release tablet, 81 mg= 1 tab(s), Oral, Daily, 1 refills aspirin 81 mg oral delayed release tablet, 81 mg= 1 tab(s), Oral, Daily atorvastatin 20 mg oral tablet, 20 mg= 1 tab(s), Oral, qDay, 1 refills budesonide-formoterol 160 mcg-4.5 mcg/inh Inhaler, 2 puff(s), Inhalation, Daily, 1 refills bumetanide 1 mg oral tablet, 0.5 mg= 0.5 tab(s), Oral, BID, 2 refills Cardizem CD 180 mg/24 hours oral capsule, extended release, 180 mg= 1 cap(s), Oral, qDay, 3 refills carvedilol 25 mg oral tablet, 25 mg= 1 tab(s), Oral, BID, 1 refills Eliquis 5 mg oral tablet, 5 mg= 1 tab(s), Oral, BID, 1 refills furosemide 40 mg oral tablet, 40 mg= 1 tab(s), Oral, qDay, 2 refills IRON (ferrous sulfate 325 mg) 65 mg oral tablet, 325 mg= 1 tab(s), Oral, qDay MetFORMIN (Eqv-Glucophage XR) 500 mg oral tablet, EXTENDED RELEASE, 1000 mg= 2 tab(s), Oral, qDay, 1 refills Mounjaro 5 mg/0.5 mL subcutaneous solution, 5 mg, Subcutaneous, qWeek, 4 refills O2 Pen needles 8 mm, See Instructions, 11 refills Tresiba FlexTouch 200 units/mL 3 mL subcutaneous solution, 75 unit(s), Subcutaneous, qDay Vitamin C 500 mg oral tablet, 500 mg= 1 tab(s), Oral, qDay Allergies Nuprin (Unknown) misc non-codified allergy (unknown) Social History Smoking Status - 11/02/2017 Former smoker Alcohol - Denies Alcohol Use, 11/02/2017 Use: Past., 04/23/2023 Home/Environment Domestic Concerns: None. Living situation: Home/Independent. 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 Current HomeTreatments Oxygen therapy, CPAP. Professional Skilled Services or Special Community Resources None., 02/28/2021 Nutrition/Health Type of diet: Just started seeing nutrionist at [facility], doesn't eat much fruits or veggies. Drinks milk.. Appetite Good. Eating Difficulties None. Caffeine intake amount: coffee once a week., 04/23/2023 Substance Abuse - Denies Substance Abuse, 11/02/2017 Use: Never., 02/09/2019 Tobacco Nicotine Use: Former smoker, quit more than 30 days ago. Type: Cigarettes. Number of years: 30. Stopped at age: 45 Years., 02/28/2021 Family History Bladder cancer: Negative: Mother, Father and Sister. Cancer: Brother. Diabetes mellitus: Mother. Prostate cancer: Negative: Mother, Father and Brother. Renal cancer: Brother.Negative: Mother, Father and Sister. Sleep apnea: Sister. Immunizations pneumococcal 13-valent conjugate vaccine: 0.5 unknown unit (06/16/17) pneumococcal 23-valent vaccine(Pneumovax: 0.5 unknown unit (06/13/18) pneumococcal 23-valent vaccine(Pneumovax: 0 unknown unit (07/14/16) pneumococcal 23-valent vaccine(Pneumovax: 0 unknown unit (07/10/16) pneumococcal 23-valent vaccine(Pneumovax: 0 unknown unit (05/08/99) SARS-CoV-2 (COVID-19) mRNA-1273 vaccine: 50 mcg (03/05/22) SARS-CoV-2 (COVID-19) mRNA-1273 vaccine: 50 mcg (06/23/21) SARS-CoV-2 mRNA (tozinameran) vaccine: 0.5 unknown unit (10/26/20) SARS-CoV-2 mRNA (tozinameran) vaccine: 0.5 unknown unit (10/05/20) tetanus/diphth/pertuss (Tdap) adult/adol: 0.5 mL (01/04/23) zoster vaccine live: 1 unknown unit (06/16/17) Digitally Signed by JAQUELIN WORTHY MD on 10/11/2023 01:39 PM [id number] Note Date of Service 10/11/2023 Chief Complaint Bradycardia Subjective Patient is a 68-year-old male with past medical history of DVT, previous IVC filter which was subsequently removed, a flutter on Eliquis and amiodarone, diabetes, CKD, aortic valve replacement, obesity, who presented to [place] emergency department on 10/07/2023 for complaints of mechanical fall. Patient reported he struck his right lower extremity resulting in hematoma. CT of the right lower extremity without contrast showed 2 large hematomas 11 x 5 x 28 cm and 7 x 2 x 7 cm. Patient was lacerations to the right frontal scalp. CT head showed soft tissue hematoma. Patient noted to have a drop in hemoglobin from 12- 6.5. Patient was transfused with 1 unit of packed red blood cells and started on ceftriaxone initially for concern of cellulitis. This was later discontinued. Patient was transferred to [facility] for continued treatment evaluation. Interventional radiology consulted for possible drainage of right lower extremity hematoma. IR does not recommend drainage of hematoma due to risk for repeat bleeding. Patient seen in his room today. Patient remains on telemetry unit for intermittent bradycardia. Rapid response called x 2 on 10/10/2023 for bradycardia. Second EKG showed junctional rhythm. [place] amiodarone suspended. Cardiology consulted. Patient did report dizziness with standing with lowheart rate. Patient's heart rate improved today in the 50s. Patient denies symptoms. Okay to resumePT and OT. Patient likely will require skilled therapy on discharge. Patient still without bowel movement. Will trial soapsuds enema today. Duplex of the right lower extremity positive for proximal femoral DVT. Discussed with interventional radiology who states this appears to be chronic in nature.We will order follow-up ultrasound to evaluate for any changes while Eliquis on hold. Attempted to update patient's son on plan of care, no answer received. Objective Vitals and Measurements T: 36.6 C (Oral) TMIN: 36.4 C (Oral) TMAX: 36.6 C (Oral) HR: 54 RR: 20 BP: 123/64 SpO2: 98% Intake and Output 7AM Yesterday to 7AM Today Intake and Output (Last 24 hours) Intake Oral Intake 1020.00 Output Urine Voided 450.00 Stool Count 0.00 Urine Count 4.00 Total Summary Total Intake 1020.00 Total Output 450.00 Fluid Balance 570.00 Physical Exam GEN: Appears chronically ill EYES: No conjunctival erythema, drainage. EOMI EARS: Hearing grossly intact. NOSE: No nasal discharge. THROAT: Oral cavity and pharynx pink and moist. CHEST: Normal S1 and S2. Rhythm is regular. Clear to auscultation, without rales, rhonchi, wheezing. ABD: Positive bowel sounds x 4 quads. Soft, nondistended, nontender. EXT: No significant deformity or joint abnormality. No edema. Peripheral pulses intact. NEURO: Sensation grossly intact SKIN: [place], warm, dry PSYCH: alert and oriented x 4 Weight Dosing Weight: 169 kg (10/07/23) Medications Medications (18) Active Scheduled: (11) albuterol 0.083% Soln UD (2.5mg/3 mL) 2.5 mg 3 mL, Inhalation, QIDRT amLODIPine 5 mg tablet 5 mg 1 tab(s), Oral, qDay ascorbic acid 500 mg tablet 500 mg 1 tab(s), Oral, qDay atorvastatin 20 mg tablet 20 mg 1 tab(s), Oral, qDay budesonide 0.5 mg/2 mL Susp UD 0.5 mg 2 mL, Inhalation, BIDRT bumetanide 0.5 mg tablet 0.5 mg 1 tab(s), Oral, BID gabapentin 300 mg Capsule 300 mg 1 cap(s), Oral, TID insulin glargine 75 unit(s) 0.75 mL, Subcutaneous (INT), qDay insulin lispro 100 units/mL Soln (3 mL) Give 0-5 units/dose, Subcutaneous, TIDAC polyethylene glycol 3350 - UD packet 17 gram(s) 15 mL, Oral, qDay polyethylene glycol 3350 - UD packet 17 gram(s) 15 mL, Oral, BID Continuous: (0) PRN: (7) acetaminophen 325 mg Tablet 650 mg 2 tab(s), Oral, q4h acetaminophen-OXYcodone 325 mg-5 mg Tablet 2 tab(s), Oral, q4h dextrose 50% Solution Disp syringe 50 mL 12.5 gram(s) 25 mL, IV Push, AsDirected melatonin 3 mg tablet 3 mg 1 tab(s), Oral, qHS melatonin 3 mg tablet 3 mg 1 tab(s), Oral, qHS ondansetron 2 mg/ 1 mL 2 mL INJ 4 mg 2 mL, IV Push, q4h polyethylene glycol 3350 - UD packet 17 gram(s) 15 mL, Oral, qDay Lab Results 10/10 04:49 WBC: 8.1 Hgb: 7.5 L Hct: 22.8 L Platelet: 268 Neutrophil %: 73.9 Glucose Level: 111 Sodium Level: 140 Potassium Level: 4.9 BUN: 37.0 H Creatinine Lvl (s): 1.21 10/09 14:02 Hgb: 7.8 L Hct: 23.1 L 10/09 12:07 Hgb: 8.3 L Hct: 24.6 L 10/09 03:36 WBC: 7.5 Hgb: 6.9 C Hct: 21.1 L Platelet: 242 Neutrophil %: 74.9 Glucose Level: 130 H Sodium Level: 140 Potassium Level: 4.7 BUN: 34.0 H Creatinine Lvl (s): 1.12 EKG Electrocardiogram (EKG) - InProcess -- 10/10/23 16:55:00 EDT Assessment/Plan Right lower extremity hematoma x 2 Right forehead laceration with repair Scalp hematoma Mechanical fall Junctional rhythm A flutter HFpEF Obesity Diabetes CKD History of aortic valve replacement PAWEL Right lower extremity hematoma x 2, right forehead laceration with repair, scalp hematoma, mechanical fall -Patient presented to [facility] emergency department on 09/29/2023 for complaints of mechanical fall. Patient with right lower extremity hematoma x 2 which was confirmed on imaging. Right scalphematoma. Right forehead laceration with repair in the [facility] -Hemoglobin significantly declined from 12-6.5. Patient transfused with 1 unit of packed red blood cells. Hemoglobin stable at this time with last check of 7.1. Continue to monitor. -Interventional radiology consulted for evaluation of evacuation of hematoma. Interventional radiologist recommended to continue monitoring hemoglobin. If hemoglobin drops recommend CTA abdomen and pelvis with runoff with delayed imaging of right lower extremity to look for bleeding if positive could consider embolization. Hold Eliquis. Recommend out of bed and PT to reduce risk of DVT. Patient with risk for formation of below-knee DVT. Would not recommend IVC filter unless DVT above the knee or shows propagation of DVT over 2 ultrasounds a few days apart. Drainage of hematoma not recommendedas hematoma can tamponade bleeding area. Decompression could cause continued bleeding. -Continue to hold Eliquis -Rocephin discontinued. No concern of cellulitis at this time. -PT OT consult. Appreciate input. -Neurontin uptitrated for continued management of burning pain to right lower extremity. -Hemoglobin 6.9 on 10/10/2023. Patient treated with 1 unit of packed red blood cells. Hemoglobin increased to 8.3. -Venous duplex positive for proximal femoral right lower extremity DVT. Discussed with interventional radiology who states this appears to be chronic. We will order follow-up ultrasound on discharge to continue to monitor. Constipation -Patient reports last bowel movement at least 1 week ago. Patient started on MiraLAX twice daily. -No results from MiraLAX dosing. Patient ordered Dulcolax suppository as well as mag citrate. Junctional rhythm -Rapid response x 2 called on 10/10/2023 for bradycardia. EKG showed junctional rhythm with prolonged QT. Carvedilol and amiodarone suspended. Cardiology consulted. Appreciate input. Atrial flutter -Eliquis on hold secondary to hematoma -Continue amiodarone Cardizem Diabetes -Continue Lantus. Accu-Cheks before meals and at bedtime with sliding scale insulin. -ADA diet. HFpEF -Continue Coreg and Bumex Obesity, complicating all aspects of care CKD, stable PAWEL -Continue CPAP as per home DVT prophylaxis: Chemical anticoagulation on hold secondary to significant drop in bleeding secondary to large hematoma following mechanical Fall on Eliquis. Unable to apply SCDs due to large hematoma on the right lower extremity. PT and OT consult pending. Likely patient will require inpatient therapy on discharge. We will await recommendations. Patient will likely require hospitalization until Wednesday for discharge planning. Plan of care discussed with patient who is agreeable. Case discussed with collaborating physician Dr. Alberto. Collaborative Care Team [facility] Visit by Nhi CASTELLANOS. Care discussed and coordinated by the entire care team under my direction. d/w Dr Moraes from IR; femoral clot appears to be chronic in appearance. Will monitor periodically, but no strong indication in my perspective to force the issue of anticoagulation in light of this very large hematoma. Appreciate cardiology input for bradycardia. Will need SNF at [place]. danie alberto md [facility] Digitally Signed by NHI BENJAMIN on 10/11/2023 02:11 PM Digitally Signed by DANIE ALBERTO MD [facility] on 10/11/2023 05:25 PM [id number] Palliative care Progress note Full consult note to follow Lengthy goals of care discussion held with the patient. He request to change CODE STATUS to DNR CCAokay to intubate for a time-limited trial. I was able to update the patient's son over the phone. Patient's son is his legal next of kin. Reports he is also financial and medical power of tax attorney but unfortunately we do not have that paperwork on file. Updated nursing, primary team. Digitally Signed by ELVIE MARQUEZ MD on 10/11/2023 01:36 PM [id number] Palliative care Consult note Date of Service 10/11/2023 Reason for Consult positive palliative care screen Participants in Discussion Jadon, the patient History of Present Illness Mr. Alvarez is a 68-year-old, Georgian-speaking male with past medical history of DVT, previous IVC filter which was subsequently removed, a flutter on Eliquis and amiodarone, diabetes, CKD, aortic valve replacement, obesity. He was admitted to hospital on 10/07/2023 status post fall. Status post fall, he was found to have a right lower extremity hematoma as well as right head laceraion and scalp hematoma. He underwent rapid response on 10/10/2023 for bradycardia. Palliative care consulted as partof a positive palliative care screen. Review of Systems Review of systems completed. Jadon continues to endorse pain that he feels begins in his back andalso is involving his legs mostly worse in the right. The medication he receives for pain is helpful. He notes decreased mobility and a decreased exercise tolerance. He has difficulty sitting up to chair for long periods of time. He is looking forward to working with physical therapy and improving his independence. He denies nausea, shortness of breath. He does enjoy drawing/doodling and has beenup to chair drying this morning. Physical Exam Vitals and Measurements T: 36.5 C (Axillary) TMIN: 36.4 C (Oral) TMAX: 36.6 C (Oral) HR: 60 RR: 20 BP: 118/53 SpO2: 96% Weight Dosing Weight: 169 kg (10/07/23) Very pleasant elderly male seated upright to chair He does not appear in any acute distress NC, PERRLA Cranial nerves II through XII grossly intact with baseline vision impairment corrected via glasses Moist mucosa He is alert, oriented x 4, cooperative He does have a large hematoma involving the right lower extremity with demarcation There is a blood-filled blister on his sage He does have generalized weakness Otherwise the skin is appropriate for ethnicity He does have blood and bruising around his eyes bilaterally worse on the right than the left Abdomen is soft, obese Heart rate regular He does appear to have tachypnea when speaking long sentences but he does pause to recover Lab Results 10/10 04:49 WBC: 8.1 Hgb: 7.5 L Hct: 22.8 L Platelet: 268 Neutrophil %: 73.9 Glucose Level: 111 Sodium Level: 140 Potassium Level: 4.9 BUN: 37.0 H Creatinine Lvl (s): 1.21 10/09 14:02 Hgb: 7.8 L Hct: 23.1 L 10/09 12:07 Hgb: 8.3 L Hct: 24.6 L 10/09 03:36 WBC: 7.5 Hgb: 6.9 C Hct: 21.1 L Platelet: 242 Neutrophil %: 74.9 Glucose Level: 130 H Sodium Level: 140 Potassium Level: 4.7 BUN: 34.0 H Creatinine Lvl (s): 1.12 I reviewed the labs, notes over the interval Palliative Assessment and Recommendations Palliative care encounter Goals of care discussion Fall Right lower extremity hematoma Debility CKD Atrial fibrillation Physical and Occupational Therapy consults pending. Palliative care consulted as part of a positivepalliative care screen. He is currently receiving pain medication for noncancer related pain. He isbeing optimized by medical specialties in anticipation of discharge to rehabilitation. He has no unmet palliative needs at this time. Please see goals of care discussion below. CODE STATUS changed toDNR CCA okay to intubate Goals of Care/Disposition Currently, he is listed as a full code there is no healthcare power of tax attorney on file There is no living will on file Responsible family: Romina, son: [phone] According to Jadon, he is already completed a living will. He has not completed healthcare power of tax attorney. He has 1 child and his a year ago. As such, Romina would be his legal next of kin. He does want him to be his surrogate decision maker in the event that he loses capacity. As such, healthcare power of tax attorney is not necessary. He does also indicate that he would want his friend, Braxton, to be his surrogate decision-maker. I offered to complete healthcare power of tax attorney paperwork while in the hospital but he feels he is already completed this. Again, we do not haveanything on file. I introduced myself as part of care provider. Discussed CODE STATUS. Discussed goals of care. Discussed the difference between the palliative and hospice philosophy's. He indicated to me that in the event of a cardiopulmonary arrest, he did not want to undergo cardiac resuscitation. He would like to continue all other medical intervention up until the time of cardiac arrest. He would be agreeable to temporary intubation for reversible causes but would not want angelina maintained artificially on machines. He felt this was clearly indicated in his living will. I offered to reach out to the patient's son to describe the changing CODE STATUS which the patient was indicating. DNR CCA okay to intubate for a time-limited trial mostly DNR CCA okay to intubate for a time-limited trial most represents his goals. He was agreeable to this change. I spoke with the patient's son. I provided him updates to the best of my knowledge. He is appreciative of my information. He does feel that the CODE STATUS DNR CCA okay to intubate for a time-limitedtrial is reflective of his father's wishes and is consistent with the advanced directives he has set aside. He again confirmed that his father had a living will and had designated him healthcare and financial power of tax attorney. Unfortunately, we do not have that documentation on file. A DNR form was completed and scanned into medical records. A copy was also placed in the patient's chart in anticipation of discharge. Palliative care will sign off at this time. Problem List/Past Medical History Ongoing Acute embolism and thrombosis of deep vein of left distal leg Aftercare following surgery AORTIC VALVE DISEASE Apnea, sleep Atrial flutter 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 Left, 6.6-cm, LP, posterior. *MMP-morbid obesity, CKD, DM, HTN, CHF, DVT/PE. *BT-Coumadin, ASA. Right hip pain S/P AVR (aortic valve replacement) SOB (shortness of breath) Historical Bowel infarction Procedure/Surgical History Cardioversion: 2022 Repair of inguinal hernia Bladder IVC - Insertion of inferior vena caval filter IVC - Removal of inferior vena caval filter Colectomy Aortic valve Medications Inpatient albuterol 2.5 mg/3 mL (0.083%) inhalation solution, 2.5 mg= 3 mL, Inhalation, QIDRT amLODIPine, 5 mg= 1 tab(s), Oral, qDay atorvastatin, 20 mg= 1 tab(s), Oral, qDay bumetanide, 0.5 mg= 1 tab(s), Oral, BID Cardizem CD 180 mg/24 hours oral capsule, extended release, 180 mg= 1 cap(s), Oral, qDay carvedilol 25 mg oral tablet, 12.5 mg= 0.5 tab(s), Oral, BID Dextrose 50% IV Push, 12.5 gram(s)= 25 mL, IV Push, AsDirected, PRN gabapentin, 300 mg= 1 cap(s), Oral, TID HumaLOG 100 units/mL subcutaneous solution, Give 0-5 units/dose, Subcutaneous, TIDAC Lantus, 75 unit(s)= 0.75 mL, Subcutaneous (INT), qDay melatonin, 3 mg= 1 tab(s), Oral, qHS, PRN melatonin, 3 mg= 1 tab(s), Oral, qHS, PRN Miralax Powder Packet, 17 gram(s)= 15 mL, Oral, qDay Miralax Powder Packet, 17 gram(s)= 15 mL, Oral, BID Miralax Powder Packet, 17 gram(s)= 15 mL, Oral, qDay, PRN Percocet 325/5, 2 tab(s), Oral, q4h, PRN Pulmicort Respules 0.5 mg/2 mL inhalation suspension, 0.5 mg= 2 mL, Inhalation, BIDRT Tylenol, 650 mg= 2 tab(s), Oral, q4h, PRN Vitamin C, 500 mg= 1 tab(s), Oral, qDay Zofran, 4 mg= 2 mL, IV Push, q4h, PRN Home amiodarone 200 mg oral tablet, 200 mg= 1 tab(s), Oral, BID, 1 refills amLODIPine 5 mg oral tablet, 5 mg= 1 tab(s), Oral, qDay aspirin 81 mg oral delayed release tablet, 81 mg= 1 tab(s), Oral, Daily, 1 refills aspirin 81 mg oral delayed release tablet, 81 mg= 1 tab(s), Oral, Daily atorvastatin 20 mg oral tablet, 20 mg= 1 tab(s), Oral, qDay, 1 refills budesonide-formoterol 160 mcg-4.5 mcg/inh Inhaler, 2 puff(s), Inhalation, Daily, 1 refills bumetanide 1 mg oral tablet, 0.5 mg= 0.5 tab(s), Oral, BID, 2 refills Cardizem CD 180 mg/24 hours oral capsule, extended release, 180 mg= 1 cap(s), Oral, qDay, 3 refills carvedilol 25 mg oral tablet, 25 mg= 1 tab(s), Oral, BID, 1 refills Eliquis 5 mg oral tablet, 5 mg= 1 tab(s), Oral, BID, 1 refills furosemide 40 mg oral tablet, 40 mg= 1 tab(s), Oral, qDay, 2 refills IRON (ferrous sulfate 325 mg) 65 mg oral tablet, 325 mg= 1 tab(s), Oral, qDay MetFORMIN (Eqv-Glucophage XR) 500 mg oral tablet, EXTENDED RELEASE, 1000 mg= 2 tab(s), Oral, qDay, 1 refills Mounjaro 5 mg/0.5 mL subcutaneous solution, 5 mg, Subcutaneous, qWeek, 4 refills O2 Pen needles 8 mm, See Instructions, 11 refills Tresiba FlexTouch 200 units/mL 3 mL subcutaneous solution, 75 unit(s), Subcutaneous, qDay Vitamin C 500 mg oral tablet, 500 mg= 1 tab(s), Oral, qDay Allergies Nuprin (Unknown) misc non-codified allergy (unknown) Social History Smoking Status - 11/02/2017 Former smoker Alcohol - Denies Alcohol Use, 11/02/2017 Use: Past., 04/23/2023 Home/Environment Domestic Concerns: None. Living situation: Home/Independent. 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 Current HomeTreatments Oxygen therapy, CPAP. Professional Skilled Services or Special Community Resources None., 02/28/2021 Nutrition/Health Type of diet: Just started seeing nutrionist at [facility], doesn't eat much fruits or veggies. Drinks milk.. Appetite Good. Eating Difficulties None. Caffeine intake amount: coffee once a week., 04/23/2023 Substance Abuse - Denies Substance Abuse, 11/02/2017 Use: Never., 02/09/2019 Tobacco Nicotine Use: Former smoker, quit more than 30 days ago. Type: Cigarettes. Number of years: 30. Stopped at age: 45 Years., 02/28/2021 Family History Bladder cancer: Negative: Mother, Father and Sister. Cancer: Brother. Diabetes mellitus: Mother. Prostate cancer: Negative: Mother, Father and Brother. Renal cancer: Brother.Negative: Mother, Father and Sister. Sleep apnea: Sister. Code Status Code Status - Ordered -- 10/07/23 20:14:00 EDT, Full Code, Constant Order Digitally Signed by ELVIE MARQUEZ MD on 10/11/2023 02:23 PM [id number] Cardiology Consult note Date of Service 10/11/2023 Reason for Consultation Junctional rhythm Referring Physician Dr. Danie Alberto MD History of Present Illness Patient is a 68-year-old Georgian-speaking male with a past medical history of atrial flutter s/p cardioversion on 01/26/2023,S/P AVR in 2016, HFpEF, T2DM, CKD stage III, morbid obesity, PAWEL on CPAP, history of left 6.6 cm renal mass. Patient sustained a mechanical fall on 10/03/2023, where he presented to [facility]. He had a CT head which showed right frontal laceration and soft tissue hematoma. CT facial bones/C-spine showed no acute traumatic injury. CT tibia and fibula showed large hematoma in the lateral superficial adipose tissues and extending nearly the entire length of the tibia. Additional small hematoma in theanterior lateral soft tissues near the femur. Due to the extent of these injuries he was subsequently transferred to [facility] on 10/07/2023 for further evaluation. During his admission to [facility] on 10/09 rapid response was called due to altered mental status. Patient was found to be bradycardic with heart rate in the low 40s, this subsequently improved. It is presumed that his bradycardia was secondary to carvedilol administration. EKG was done, thisshowed concerns for junctional rhythm and cardiology was consulted for further evaluation. Patient denies any chest pain, palpitations. He reports that he has chronic dyspnea and this has not changed. Review of Systems Review of system completed, all pertinent positives and negatives as mentioned above in HPI Physical Exam Vitals and Measurements T: 36.5 C (Axillary) TMIN: 36.4 C (Oral) TMAX: 36.7 C (Oral) HR: 56 RR: 20 BP: 118/53 SpO2: 94% Weight Dosing Weight: 169 kg (10/07/23) General Appearance: Middle aged male, receiving supplemental O2 via nasal cannula Head: Normocephalic, right periorbital ecchymosis noted EENT: Sclera anicteric, oral mucosa moist, no pharyngeal erythema Neck: Supple, no JVD Cardiac: Regular rate and rhythm, no murmur Respiratory: Clear to auscultation bilaterally, no wheeze or crackles Abdomen: Soft, nontender to deep palpation, normoactive bowel sounds Musculoskeletal: No joint deformity, Right lower extremity: Ecchymosis noted extending up along the entire aspect of the leg, with x 3 blisters actively leading with underlying chronic venous changes. Tenderness appreciated on palpation. Left lower extremity: Chronic venous changes noted with hyperpigmentation Neurological: Alert and oriented x3, no focal deficit Skin: Warm and dry, no rash Psychiatric: Normal mood and affect Lab Results 10/10 04:49 WBC: 8.1 Hgb: 7.5 L Hct: 22.8 L Platelet: 268 Neutrophil %: 73.9 Glucose Level: 111 Sodium Level: 140 Potassium Level: 4.9 BUN: 37.0 H Creatinine Lvl (s): 1.21 10/09 14:02 Hgb: 7.8 L Hct: 23.1 L 10/09 12:07 Hgb: 8.3 L Hct: 24.6 L 10/09 03:36 WBC: 7.5 Hgb: 6.9 C Hct: 21.1 L Platelet: 242 Neutrophil %: 74.9 Glucose Level: 130 H Sodium Level: 140 Potassium Level: 4.7 BUN: 34.0 H Creatinine Lvl (s): 1.12 Assessment/Plan Junctional rhythm Atrial flutter s/p cardioversion HFpEF Comorbidities :atrial flutter s/p cardioversion on 01/26/2023,S/P AVR in 2016, HFpEF, T2DM, CKD stage III, morbid obesity, PAWEL on CPAP, history of left 6.6 cm renal mass. PLAN: Patient is hemodynamically stable, denies any chest pain or discomfort. 12 lead EKG reviewed, agreewith junctional rhythm. Will discontinue carvedilol and Cardizem at this time and continue to observe for improvement in heart rate. If no improvement in heart rate then we will consider consulting EP. Cari has been held in light of left lower extremity hematoma and recent drop in Hb. His recent Hb this morning 7.5 Keep potassium >4 and magnesium > 2 Thank you for allowing us to take part in the management of this patient. We will continue to follow Case and management discussed with attending Dr. Mason, please see addendum for any further changes to the plan. Problem List/Past Medical History Ongoing Acute embolism and thrombosis of deep vein of left distal leg Aftercare following surgery AORTIC VALVE DISEASE Apnea, sleep Atrial flutter 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 Left, 6.6-cm, LP, posterior. *MMP-morbid obesity, CKD, DM, HTN, CHF, DVT/PE. *BT-Coumadin, ASA. Right hip pain S/P AVR (aortic valve replacement) SOB (shortness of breath) Historical Bowel infarction Procedure/Surgical History Cardioversion: 2022 Repair of inguinal hernia IVC - Insertion of inferior vena caval filter IVC - Removal of inferior vena caval filter Bladder Colectomy Aortic valve Medications Inpatient albuterol 2.5 mg/3 mL (0.083%) inhalation solution, 2.5 mg= 3 mL, Inhalation, QIDRT amLODIPine, 5 mg= 1 tab(s), Oral, qDay atorvastatin, 20 mg= 1 tab(s), Oral, qDay bumetanide, 0.5 mg= 1 tab(s), Oral, BID Cardizem CD 180 mg/24 hours oral capsule, extended release, 180 mg= 1 cap(s), Oral, qDay carvedilol 25 mg oral tablet, 12.5 mg= 0.5 tab(s), Oral, BID Dextrose 50% IV Push, 12.5 gram(s)= 25 mL, IV Push, AsDirected, PRN gabapentin, 300 mg= 1 cap(s), Oral, TID HumaLOG 100 units/mL subcutaneous solution, Give 0-5 units/dose, Subcutaneous, TIDAC Lantus, 75 unit(s)= 0.75 mL, Subcutaneous (INT), qDay melatonin, 3 mg= 1 tab(s), Oral, qHS, PRN melatonin, 3 mg= 1 tab(s), Oral, qHS, PRN Miralax Powder Packet, 17 gram(s)= 15 mL, Oral, qDay Miralax Powder Packet, 17 gram(s)= 15 mL, Oral, BID Miralax Powder Packet, 17 gram(s)= 15 mL, Oral, qDay, PRN Percocet 325/5, 2 tab(s), Oral, q4h, PRN Pulmicort Respules 0.5 mg/2 mL inhalation suspension, 0.5 mg= 2 mL, Inhalation, BIDRT Tylenol, 650 mg= 2 tab(s), Oral, q4h, PRN Vitamin C, 500 mg= 1 tab(s), Oral, qDay Zofran, 4 mg= 2 mL, IV Push, q4h, PRN Home amiodarone 200 mg oral tablet, 200 mg= 1 tab(s), Oral, BID, 1 refills amLODIPine 5 mg oral tablet, 5 mg= 1 tab(s), Oral, qDay aspirin 81 mg oral delayed release tablet, 81 mg= 1 tab(s), Oral, Daily, 1 refills aspirin 81 mg oral delayed release tablet, 81 mg= 1 tab(s), Oral, Daily atorvastatin 20 mg oral tablet, 20 mg= 1 tab(s), Oral, qDay, 1 refills budesonide-formoterol 160 mcg-4.5 mcg/inh Inhaler, 2 puff(s), Inhalation, Daily, 1 refills bumetanide 1 mg oral tablet, 0.5 mg= 0.5 tab(s), Oral, BID, 2 refills Cardizem CD 180 mg/24 hours oral capsule, extended release, 180 mg= 1 cap(s), Oral, qDay, 3 refills carvedilol 25 mg oral tablet, 25 mg= 1 tab(s), Oral, BID, 1 refills Eliquis 5 mg oral tablet, 5 mg= 1 tab(s), Oral, BID, 1 refills furosemide 40 mg oral tablet, 40 mg= 1 tab(s), Oral, qDay, 2 refills IRON (ferrous sulfate 325 mg) 65 mg oral tablet, 325 mg= 1 tab(s), Oral, qDay MetFORMIN (Eqv-Glucophage XR) 500 mg oral tablet, EXTENDED RELEASE, 1000 mg= 2 tab(s), Oral, qDay, 1 refills Mounjaro 5 mg/0.5 mL subcutaneous solution, 5 mg, Subcutaneous, qWeek, 4 refills O2 Pen needles 8 mm, See Instructions, 11 refills Tresiba FlexTouch 200 units/mL 3 mL subcutaneous solution, 75 unit(s), Subcutaneous, qDay Vitamin C 500 mg oral tablet, 500 mg= 1 tab(s), Oral, qDay Allergies Nuprin (Unknown) misc non-codified allergy (unknown) Social History Smoking Status - 11/02/2017 Former smoker Alcohol - Denies Alcohol Use, 11/02/2017 Use: Past., 04/23/2023 Home/Environment Domestic Concerns: None. Living situation: Home/Independent. 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 Current HomeTreatments Oxygen therapy, CPAP. Professional Skilled Services or Special Community Resources None., 02/28/2021 Nutrition/Health Type of diet: Just started seeing nutrionist at [facility], doesn't eat much fruits or veggies. Drinks milk.. Appetite Good. Eating Difficulties None. Caffeine intake amount: coffee once a week., 04/23/2023 Substance Abuse - Denies Substance Abuse, 11/02/2017 Use: Never., 02/09/2019 Tobacco Nicotine Use: Former smoker, quit more than 30 days ago. Type: Cigarettes. Number of years: 30. Stopped at age: 45 Years., 02/28/2021 Family History Bladder cancer: Negative: Mother, Father and Sister. Cancer: Brother. Diabetes mellitus: Mother. Prostate cancer: Negative: Mother, Father and Brother. Renal cancer: Brother.Negative: Mother, Father and Sister. Sleep apnea: Sister. Immunizations pneumococcal 13-valent conjugate vaccine: 0.5 unknown unit (06/16/17) pneumococcal 23-valent vaccine(Pneumovax: 0.5 unknown unit (06/13/18) pneumococcal 23-valent vaccine(Pneumovax: 0 unknown unit (07/14/16) pneumococcal 23-valent vaccine(Pneumovax: 0 unknown unit (07/10/16) pneumococcal 23-valent vaccine(Pneumovax: 0 unknown unit (05/08/99) SARS-CoV-2 (COVID-19) mRNA-1273 vaccine: 50 mcg (03/05/22) SARS-CoV-2 (COVID-19) mRNA-1273 vaccine: 50 mcg (06/23/21) SARS-CoV-2 mRNA (tozinameran) vaccine: 0.5 unknown unit (10/26/20) SARS-CoV-2 mRNA (tozinameran) vaccine: 0.5 unknown unit (10/05/20) tetanus/diphth/pertuss (Tdap) adult/adol: 0.5 mL (01/04/23) zoster vaccine live: 1 unknown unit (06/16/17) Digitally Signed by JAQUELIN WORTHY MD on 10/11/2023 01:39 PM [id number] Note* Exam Date Time Procedure Performing Provider Status 10/11/23 6:29 AM VL Venous US/Doppler One Leg (for DVT). Auth (Verified) [facility] 03-31-2024 Nurse Progress note Patient is refusing any patient care went in patients room at 745pm to do vitals patient refused, asked patient why he stated he does not want to be bothered. Two techs went in room to reposition patient he refused and demanded they get out. Asked patient if i could administer his medications he stated no. Went back into patients room at 945pm patient once again stated he wants to be left alone. Charge nurse was notified. Patient is resting in bed with bed alarms on and call light within reach. Digitally Signed by Mally Bailey RN on 10/10/2023 10:11 PM [facility] [id number] NoteATRIAL FIBRILLATION WITH SLOW VENTRICULAR RESPONSE NONSPECIFIC INTRAVENTRICULAR CONDUCTION DELAY Electronic Signature: BONNIE CRAWFORD MD 10/11/2023 20:29:13[facility] 03-31-2024 Note Date of Service 10/10/2023 Chief Complaint Constipation Subjective Patient is a 68-year-old male with past medical history of DVT, previous IVC filter which was subsequently removed, a flutter on Eliquis and amiodarone, diabetes, CKD, aortic valve replacement, obesity, who presented to [place] emergency department on 10/07/2023 for complaints of mechanical fall. Patient reported he struck his right lower extremity resulting in hematoma. CT of the right lower extremity without contrast showed 2 large hematomas 11 x 5 x 28 cm and 7 x 2 x 7 cm. Patient was lacerations to the right frontal scalp. CT head showed soft tissue hematoma. Patient noted to have a drop in hemoglobin from 12- 6.5. Patient was transfused with 1 unit of packed red blood cells and started on ceftriaxone initially for concern of cellulitis. This was later discontinued. Patient was transferred to [facility] for continued treatment evaluation. Interventional radiology consulted for possible drainage of right lower extremity hematoma. IR does not recommend drainage of hematoma due to risk for repeat bleeding. Patient seen in his room today. Patient denies any new or worsening symptoms. Hematoma to right lower extremity remains unchanged. Patient reports no bowel movements with MiraLAX dosing. Patient willbe treated with Dulcolax and mag citrate. Nursing to remove every other suture today. Rapid response called for bradycardia likely in the presence of carvedilol. Dosing decreased. Patient transition to stepdown for further monitoring of heart rate. Plan of care discussed with patient who is agreeable. Objective Vitals and Measurements T: 36.6 C (Oral) TMIN: 36.3 C (Axillary) TMAX: 36.8 C (Oral) HR: 42(Apical) RR: 18 BP: 138/73 SpO2:100% Intake and Output 7AM Yesterday to 7AM Today Intake and Output (Last 24 hours) Intake Red Blood Cells Amount Transfused 500.00 Oral Intake 816.00 Output Stool Count 0.00 Urine Count 3.00 Total Summary Total Intake 1316.00 Total Output 0.00 Fluid Balance 1316.00 Physical Exam GEN: Appears chronically ill EYES: No conjunctival erythema, drainage. EOMI EARS: Hearing grossly intact. NOSE: No nasal discharge. THROAT: Oral cavity and pharynx pink and moist. CHEST: Normal S1 and S2. Rhythm is regular. Clear to auscultation, without rales, rhonchi, wheezing. ABD: Positive bowel sounds x 4 quads. Soft, nondistended, nontender. EXT: No significant deformity or joint abnormality. No edema. Peripheral pulses intact. NEURO: Sensation grossly intact SKIN: [place], warm, dry PSYCH: alert and oriented x 4 Weight Dosing Weight: 169 kg (10/07/23) Medications Medications (21) Active Scheduled: (14) albuterol 0.083% Soln UD (2.5mg/3 mL) 2.5 mg 3 mL, Inhalation, QIDRT amiodarone 200 mg tablet 200 mg 1 tab(s), Oral, BID amLODIPine 5 mg tablet 5 mg 1 tab(s), Oral, qDay ascorbic acid 500 mg tablet 500 mg 1 tab(s), Oral, qDay atorvastatin 20 mg tablet 20 mg 1 tab(s), Oral, qDay budesonide 0.5 mg/2 mL Susp UD 0.5 mg 2 mL, Inhalation, BIDRT bumetanide 0.5 mg tablet 0.5 mg 1 tab(s), Oral, BID carvedilol 25 mg tablet 12.5 mg 0.5 tab(s), Oral, BID diltiazem 180 mg/24 hours ER capsule 180 mg 1 cap(s), Oral, qDay gabapentin 300 mg Capsule 300 mg 1 cap(s), Oral, TID insulin glargine 75 unit(s) 0.75 mL, Subcutaneous (INT), qDay insulin lispro 100 units/mL Soln (3 mL) Give 0-5 units/dose, Subcutaneous, TIDAC polyethylene glycol 3350 - UD packet 17 gram(s) 15 mL, Oral, qDay polyethylene glycol 3350 - UD packet 17 gram(s) 15 mL, Oral, BID Continuous: (0) PRN: (7) acetaminophen 325 mg Tablet 650 mg 2 tab(s), Oral, q4h acetaminophen-OXYcodone 325 mg-5 mg Tablet 2 tab(s), Oral, q4h dextrose 50% Solution Disp syringe 50 mL 12.5 gram(s) 25 mL, IV Push, AsDirected melatonin 3 mg tablet 3 mg 1 tab(s), Oral, qHS melatonin 3 mg tablet 3 mg 1 tab(s), Oral, qHS ondansetron 2 mg/ 1 mL 2 mL INJ 4 mg 2 mL, IV Push, q4h polyethylene glycol 3350 - UD packet 17 gram(s) 15 mL, Oral, qDay Lab Results 10/09 12:07 Hgb: 8.3 L Hct: 24.6 L 10/09 03:36 WBC: 7.5 Hgb: 6.9 C Hct: 21.1 L Platelet: 242 Neutrophil %: 74.9 Glucose Level: 130 H Sodium Level: 140 Potassium Level: 4.7 BUN: 34.0 H Creatinine Lvl (s): 1.12 10/08 02:48 WBC: 8.3 Hgb: 7.3 L Hct: 21.7 L Platelet: 215 Neutrophil %: 74.7 Glucose Level: 121 H Sodium Level: 142 Potassium Level: 4.7 BUN: 29.0 H Creatinine Lvl (s): 1.09 EKG Electrocardiogram (EKG) - InProcess -- 10/10/23 11:23:00 EDT Assessment/Plan Right lower extremity hematoma x 2 Right forehead laceration with repair Scalp hematoma Mechanical fall A flutter HFpEF Obesity Diabetes CKD History of aortic valve replacement PAWEL Right lower extremity hematoma x 2, right forehead laceration with repair, scalp hematoma, mechanical fall -Patient presented to [facility] emergency department on 09/29/2023 for complaints of mechanical fall. Patient with right lower extremity hematoma x 2 which was confirmed on imaging. Right scalphematoma. Right forehead laceration with repair in the [facility] -Hemoglobin significantly declined from 12-6.5. Patient transfused with 1 unit of packed red blood cells. Hemoglobin stable at this time with last check of 7.1. Continue to monitor. -Interventional radiology consulted for evaluation of evacuation of hematoma. Interventional radiologist recommended to continue monitoring hemoglobin. If hemoglobin drops recommend CTA abdomen and pelvis with runoff with delayed imaging of right lower extremity to look for bleeding if positive could consider embolization. Hold Eliquis. Recommend out of bed and PT to reduce risk of DVT. Patient with risk for formation of below-knee DVT. Would not recommend IVC filter unless DVT above the knee or shows propagation of DVT over 2 ultrasounds a few days apart. Drainage of hematoma not recommended as hematoma can tamponade bleeding area. Decompression could cause continued bleeding. -Continue to hold Eliquis -Rocephin discontinued. No concern of cellulitis at this time. -PT OT consult. Appreciate input. -Neurontin uptitrated for continued management of burning pain to right lower extremity. -Hemoglobin 6.9 on 10/10/2023. Patient treated with 1 unit of packed red blood cells. Hemoglobin increased to 8.3. Constipation -Patient reports last bowel movement at least 1 week ago. Patient started on MiraLAX twice daily. -No results from MiraLAX dosing. Patient ordered Dulcolax suppository as well as mag citrate. Atrial flutter -Eliquis on hold secondary to hematoma -Continue amiodarone Cardizem Diabetes -Continue Lantus. Accu-Cheks before meals and at bedtime with sliding scale insulin. -ADA diet. HFpEF -Continue Coreg and Bumex Obesity, complicating all aspects of care CKD, stable PAWEL -Continue CPAP as per home Bradycardia -Rapid response called on 10/10/2023 for altered mental status. Patient found to be bradycardic witha heart rate in the low 40s. Patient assisted back to bed and mentation returned to normal. Patientnoted to have heart rate in the 50s this morning. Patient was given his routine dose of carvedilol 25 mg. Suspect bradycardia secondary to carvedilol. Carvedilol dose decreased to 12.5 mg twice dailywith hold parameters. Patient transferred to telemetry to monitor overnight. If heart rate stable will transition back to regular floor. DVT prophylaxis: Chemical anticoagulation on hold secondary to significant drop in bleeding secondary to large hematoma following mechanical Fall on Eliquis. Unable to apply SCDs due to large hematoma on the right lower extremity. PT and OT consult pending. Likely patient will require inpatient therapy on discharge. We will await recommendations. Patient will likely require hospitalization until Wednesday for discharge planning. Plan of care discussed with patient who is agreeable. Case discussed with collaborating physician Dr. Alberto. Collaborative Care Team [facility] Shared/split visit with Nhi CASTELLANOS. Patient seen and examined independently. Care discussed and coordinated by the entire care team under my direction. Patient continues to slowly improve. Will add mag citrate and suppository. Decrease carvedilol dose. Will put on tele 24h for bradycardia. 1u pRBC today. Repeat US tomorrow. Will need SNF placement. danie alberto md [facility] Digitally Signed by NHI BENJAMIN on 10/10/2023 02:24 PM Digitally Signed by DANIE ALBERTO MD [facility] on 10/10/2023 02:30 PM [id number] Progress note Patient's vitals at time of blood transfusion end were abnormal. Rapid response called. 15 minute-post transfusion vitals delayed. Digitally Signed by Natasha Abraham RN on 10/10/2023 11:44 AM [id number] NoteSinus or ectopic atrial bradycardia Nonspecific intraventricular conduction delay Electronic Signature: BONNIE CRAWFORD MD 10/11/2023 20:28:[address] [place] [address] 03-29-2024 Interventional radiology Consult note Chart reviewed as well CT RT Tib/Fib without IV contrast. RLE CT: 28.5 x 11 x 5.8 cm hematoma lateral and 7.0 x 1.9 x 7.3 cm hematoma superior to larger hematoma anterolaterally. Al within the subcutaneous soft tissue superficial to the muscle compartments.Displacement of the anterior- lateral muscle slightly. Hgb: 10/04 0626 8.2-> 7.0 03/07 0523-> 7.3 -> 6.5 (10/06 0507) -> 7.4 -> 7.5 -> 7.1 Was given Kcentra last night 2106 hrs. Likely bleeding on AC s/p mechanical fall. Hgb is more or less stable recently. Recs: - Cont serial Hgb checks - If falling hgb, would do a CTA abd/pelvis with runoff with delayed images of RLE to look for bleeding. If (+), could consider embolization. - Dr. Navarro Shukla is compliance and control analyst until Wednesday 08 hrs. Available via pager (unisaw operator) and Messenger - Hold Eliquis (aflutter hx) - OOB/PT once able to reduce risk of DVT - fair chance of below knee DVT formation but monitor for thigh (proximal) DVT as the latter is reasonable PE risk. Would not place IVC filter unless has DVT above knee (popliteal or higher) or shows propagation of below knee DVT over 2 ultrasounds a few days apart. - Drainage not recommended for hematomas as hematoma can be tamponading bleeding area - if you decompress, bleeding can continue. Katiuska Crystal MD (Ryan) Vascular & Interventional Radiology [facility] [phone]:Pager [phone]: Charles [email or web address] [phone]: Denise Dept (01/02) [phone]: [facility] Office (M-F, 8) [phone]: [facility] Office Fax IR Call Schedule (copy & paste): [email or web address] Digitally Signed by KATIUSKA CRYSTAL MD on 10/08/2023 09:03 AM [place] [id number] History and physical note Date of Service 10/07/2023 Chief Complaint Hematoma History of Present Illness 68-year-old male with a history of DVT had an IVC filter which was then subsequently removed, atrial flutter on Eliquis and amiodarone, diabetes, CKD, aortic valve replacement, obesity, and a mechanical fall and bumped his right lower extremity so he went to the emergency department at [facility] emergency department CT of the right femur without contrast showed 2 large hematomas 11 x 5 x 28 cm the second 7 x 2 x 7 cm, head CT significant for Right frontal laceration and soft tissue hematoma, he had a drop in hemoglobin from 12-6.5 and ordered 1 unit of packed red blood cells started onceftriaxone for concern of cellulitis and was transferred to [facility] Upon arrival to the floor he was given Kcentra prophylactically to prevent worsening bleed Repeat H&H showed stable hemoglobin at 7.5 He had complained of generalized pain in his body and chronic low back pain but no new onset chest pain shortness of breath or abdominal pain For further details reviewed discharge summary from earlier today Date of Service 10/07/23 Discharge Diagnosis Apnea, sleep (G47.30 - ICD-10-CM) Atrial flutter (I48.92 - ICD-10-CM) CKD stage 3 due to type 2 diabetes mellitus (E11.22 - ICD-10-CM) Diabetes mellitus type 2 (E11.9 - ICD-10-CM) Facial laceration ([id number] - PNED) Heart failure (I50.9 - ICD-10-CM) Hematoma of leg (S80.10XA - ICD-10-CM) Obesity (E66.9 - ICD-10-CM) Weakness (R53.1 - ICD-10-CM) Hospital Course 68-year-old male with past medical history significant for atrial flutter, HFpEF, type 2 diabetes mellitus, morbid obesity. Patient presented to [facility] emergency department on 10/03/2023 after sustaining a fall. Patient states that he tripped over his own feet. Patient apparently lost consciousness twice while inthe squad. In the emergency department he was afebrile, hypertensive with adequate oxygenation on room air. He then did require O2 via nasal cannula at 2 L. He does have dyspnea at baseline. No leukocytosis. His hemoglobin upon arrival was 12.4. Potassium 5.2, creatinine 1.66. X-ray tib-fib showed diffuse soft tissue edema. Remainder of imaging noted below. Facial laceration that was closed in ED. Patient was admitted. Right lower extremity hematoma that has become progressively worse. Patient developed large blisters approximately 5 cm to the lateral aspect of his right leg. CT of the tib-fib was done and showed large hematoma in the lateral superficial adipose tissue and extending nearly the entire length of the tibia. Additional small hematoma in the anterolateral soft tissues near the femur. Plan was to have patient transferred to [facility] for further evaluation. Hemoglobin began trending down. There was concern that this was due to the hematoma. His legs are edematous at baseline however there was increasing edema to right lower extremity. Hemoglobin was 12.4 on admission. On day of discharge to [facility] hemoglobin was 6.5 and patient received 1 PRBC. He is on anticoagulation for atrial flutter. This has been held. There was concern for development of cellulitis to right lower extremity. He was started on ceftriaxone. Patient is optimized for transfer to [facility]. Review of Systems All pertinent positive and negative review of systems as per HPI, all other review of systems reviewed and negative Physical Exam Vitals and Measurements T: 36.7 C (Oral) HR: 57 RR: 18 BP: 131/59 SpO2: 96% HT: 188.0 cm WT: 169.0 kg BMI: 47.82 Weight Dosing Weight: 169 kg (10/07/23) GENERAL:Well nourished ; no acute distress. ASSISTIVE DEVICES: None PSYCHIATRIC: appropriate HEENT moist mucous membranes extraocular muscles intact ecchymosis under the right lower orbit and right supraorbital CARDIOVASCULAR: Regular rate, regular rhythm, no murmurs noted. Notrace lower extremity pitting edema. No lymphedema. Dorsalis Pedis pulses+2/4 blaterally . Posterior Tibialis pulses+2/4 bilaterally . RESPIRATORY: Regular rate and depth; no distress, RIGHT lungclear ; LEFT lungclear . Breath soundsnormal . ABDOMEN soft, no guarding, nontender, nondistended, positive bowel sounds, NEURO: no focal deficits DERM: Edema both lower extremities significantly worse on the right lower extremity with significant ecchymosis of the right lower extremity and mild ecchymosis of the left lower extremity Lab Results 10/06 20:56 Hgb: 7.4 L Hct: 21.7 L Assessment/Plan 68-year-old male is presenting with 2 significant large right lower extremity hematomas the largestup to 28 cm with a right frontal scalpel laceration and soft tissue hematoma and drop of hemoglobinfrom 12-6.5 status post Kcentra and transfusion of 1 unit packed red blood cells with appropriate incrementation, will continue to cycle H&H every 6 hours and ask interventional radiology to weigh in to see if he needs a ligation/drainage, he was started on ceftriaxone prior to arrival for concern of superimposed cellulitis 2 large right lower extremity hematomas will hold Eliquis, status post Kcentra, drop in hemoglobin from 12-6.5 received 1 unit of packed red blood cells with appropriate status post Kcentra will continue to cycle H&H, interventional radiology consult ?Cellulitis of the right lower extremity on ceftriaxone will continue A flutter hold Eliquis, rhythm is controlled with amiodarone we will continue HFpEF he is able to lay flat without difficulty breathing stable Obesity increases risk of morbidity and mortality Diabetes sign scale insulin as needed CKD stable Status post aortic valve replacement stable PAWEL CPAP nightly DVT prophylaxis cannot give anticoagulation, cannot give SCDs due to large hematoma can consider IVC filter Full code Problem List/Past Medical History Ongoing Acute embolism and thrombosis of deep vein of left distal leg Aftercare following surgery AORTIC VALVE DISEASE Apnea, sleep Atrial flutter 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 Left, 6.6-cm, LP, posterior. *MMP-morbid obesity, CKD, DM, HTN, CHF, DVT/PE. *BT-Coumadin, ASA. Right hip pain S/P AVR (aortic valve replacement) SOB (shortness of breath) Historical Bowel infarction Procedure/Surgical History Cardioversion: 2022 Repair of inguinal hernia Bladder IVC - Insertion of inferior vena caval filter IVC - Removal of inferior vena caval filter Colectomy Aortic valve Medications Home Medications (18) Active amiodarone 200 mg oral tablet 200 mg = 1 tab(s), Oral, BID amLODIPine 5 mg oral tablet 5 mg = 1 tab(s), Oral, qDay aspirin 81 mg oral delayed release tablet 81 mg = 1 tab(s), Oral, Daily atorvastatin 20 mg oral tablet 20 mg = 1 tab(s), Oral, qDay budesonide-formoterol 160 mcg-4.5 mcg/inh Inhaler 2 puff(s), Inhalation, Daily bumetanide 1 mg oral tablet 0.5 mg = 0.5 tab(s), Oral, BID Cardizem CD 180 mg/24 hours oral capsule, extended release 180 mg = 1 cap(s), Oral, qDay carvedilol 25 mg oral tablet 25 mg = 1 tab(s), Oral, BID Eliquis 5 mg oral tablet 5 mg = 1 tab(s), Oral, BID furosemide 40 mg oral tablet 40 mg = 1 tab(s), Oral, qDay IRON (ferrous sulfate 325 mg) 65 mg oral tablet 325 mg = 1 tab(s), Oral, qDay MetFORMIN (Eqv-Glucophage XR) 500 mg oral tablet, EXTENDED RELEASE 1,000 mg = 2 tab(s), Oral, qDay Mounjaro 5 mg/0.5 mL subcutaneous solution 5 mg, Subcutaneous, qWeek Mounjaro 5 mg/0.5 mL subcutaneous solution 5 mg, Subcutaneous, qWeek O2 Pen needles 8 mm See Instructions Tresiba FlexTouch 200 units/mL 3 mL subcutaneous solution 75 unit(s), Subcutaneous, qDay Vitamin C 500 mg oral tablet 500 mg = 1 tab(s), Oral, qDay Allergies Nuprin (Unknown) misc non-codified allergy (unknown) Social History Smoking Status - 11/02/2017 Former smoker Alcohol - Denies Alcohol Use, 11/02/2017 Use: Past., 04/23/2023 Home/Environment Domestic Concerns: None. Living situation: Home/Independent. 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 Current HomeTreatments Oxygen therapy, CPAP. Professional Skilled Services or Special Community Resources None., 02/28/2021 Nutrition/Health Type of diet: Just started seeing nutrionist at [facility], doesn't eat much fruits or veggies. Drinks milk.. Appetite Good. Eating Difficulties None. Caffeine intake amount: coffee once a week., 04/23/2023 Substance Abuse - Denies Substance Abuse, 11/02/2017 Use: Never., 02/09/2019 Tobacco Nicotine Use: Former smoker, quit more than 30 days ago. Type: Cigarettes. Number of years: 30. Stopped at age: 45 Years., 02/28/2021 Family History Bladder cancer: Negative: Mother, Father and Sister. Cancer: Brother. Diabetes mellitus: Mother. Prostate cancer: Negative: Mother, Father and Brother. Renal cancer: Brother.Negative: Mother, Father and Sister. Sleep apnea: Sister. Immunizations pneumococcal 13-valent conjugate vaccine: 0.5 unknown unit (06/16/17) pneumococcal 23-valent vaccine(Pneumovax: 0.5 unknown unit (06/13/18) pneumococcal 23-valent vaccine(Pneumovax: 0 unknown unit (07/14/16) pneumococcal 23-valent vaccine(Pneumovax: 0 unknown unit (07/10/16) pneumococcal 23-valent vaccine(Pneumovax: 0 unknown unit (05/08/99) SARS-CoV-2 (COVID-19) mRNA-1273 vaccine: 50 mcg (03/05/22) SARS-CoV-2 (COVID-19) mRNA-1273 vaccine: 50 mcg (06/23/21) SARS-CoV-2 mRNA (tozinameran) vaccine: 0.5 unknown unit (10/26/20) SARS-CoV-2 mRNA (tozinameran) vaccine: 0.5 unknown unit (10/05/20) tetanus/diphth/pertuss (Tdap) adult/adol: 0.5 mL (01/04/23) zoster vaccine live: 1 unknown unit (06/16/17) Code Status Code Status - Ordered -- 10/07/23 20:14:00 EDT, Full Code, Constant Order Digitally Signed by FRANCY ELIZABETH MD on 10/07/2023 11:12 PM [id number] Discharge instructions Patient Education 10/07/2023 15:14:13 Blood Transfusion, Adult, Care After, [id number] Blood Transfusion, Adult, Care After This sheet gives you information about how to care for yourself after your procedure. Your doctor may also give you more specific instructions. If you have problems or questions, contact your doctor. Follow these instructions at home: Take qkfe-bsv-purwolt and prescription medicines only as told by your doctor. Go back to your normal activities as told by your doctor. Follow instructions from your doctor about how to take care of the area where an IV tube was put into your vein (insertion site). Make sure you: ?Wash your hands with soap and water before you change your bandage (dressing). If there is no soapand water, use hand television presenter. ?Change your bandage as told by your doctor. Check your IV insertion site every day for signs of infection. Check for: ?More redness, swelling, or pain. ?More fluid or blood. ?Warmth. ?Pus or a bad smell. Contact a doctor if: You have more redness, swelling, or pain around the IV insertion site. You have more fluid or blood coming from the IV insertion site. Your IV insertion site feels warm to the touch. You have pus or a bad smell coming from the IV insertion site. Your pee (urine) turns pink, red, or brown. You feel weak after doing your normal activities. Get help right away if: You have signs of a serious allergic or body defense (immune) system reaction, including: ?Itchiness. ?Hives. ?Trouble breathing. ?Anxiety. ?Pain in your chest or lower back. ?Fever, flushing, and chills. ?Fast pulse. ?Rash. ?Watery poop (diarrhea). ?Throwing up (vomiting). ?Dark pee. ?Serious headache. ?Dizziness. ?Stiff neck. ?Yellow color in your face or the white parts of your eyes (jaundice). Summary After a blood transfusion, return to your normal activities as told by your doctor. Every day, check for signs of infection where the IV tube was put into your vein. Some signs of infection are warm skin, more redness and pain, more fluid or blood, and pus or a badsmell where the needle went in. Contact your doctor if you feel weak or have any unusual symptoms. This information is not intended to replace advice given to you by your health care provider. Make sure you discuss any questions you have with your health care provider. Document Released: 07/19/2015 Document Revised: 11/02/2018 Document Reviewed: 02/19/2017 [employer] Patient Education 2020 [employer]. Follow Up Care 10/03/2023 15:44:03 With:KELLIE BENITES Address: [address] [place] [address] [phone] When:2-4 days [facility] 03-28-2024 Evaluation + Plan noteExtracted from: Title:History and Physical Author:FRANCY ELIZABETH Date:10/07/23 68-year-old male is presenti ng with 2 significant large right lower extremity hematomas the largest up to 28 cm with a right frontal scalpel laceration and soft tissue hematoma and drop of hemoglobin from 12-6.5 status post Kcentra and transfusion of 1 unit packed red blood cells with appropriate incrementation, will continue to cycle H&H every 6 hours and ask interventional radiology to weigh in to see if he needs a ligation/drainage, he was started on ceftriaxone prior to arrival for concern of superimposed cellulitis 2 large right lower extremity hematomas will hold Eliquis, status post Kcentra, drop in hemoglobin from 12-6.5 received 1 unit of packed red blood cells with appropriate status post Kcentra will continue to cycle H&H, interventional radiology consult ?Cellulitis of the right lower extremity on ceftriaxone will continue A flutter hold Eliquis, rhythm is controlled with amiodarone we will continue HFpEF he is able to lay flat without difficulty breathing stable Obesity increases risk of morbidity and mortality Diabetes sign scale insulin as needed CKD stable Status post aortic valve replacement stable PAWEL CPAP nightly DVT prophylaxis cannot give anticoagulation, cannot give SCDs due to large hematoma can consider IVC filter Full code Future Appointments Appointment Date:10/22/2023 08:30:00 AM Scheduled Provider: Location:[facility] Appointment Type:NUT Diet Visit Individual Appointment Date:10/22/2023 09:30:00 AM Scheduled Provider:KELLIE BENITES Location:[facility] Appointment Type:PC OV Appointment Date:12/30/2023 09:00:00 AM Scheduled Provider: Location:[facility] Appointment Type:MEDS - Diabetic Individual Visit Future Scheduled Tests Laboratory* Basic Metabolic Panel 02/13/23 * Prostate Specific Antigen 02/13/23 * Prostate Specific Antigen 10/08/22 * Complete Blood Count 10/08/22 * Lipid Profile 10/08/22 * Albumin/Creatinine Ratio, Random Urine 06/11/23 * Complete Metabolic Panel 10/08/22 [facility] 03-27-2024 Note Date of Service 10/06/2023 Chief Complaint right lower extremity pain Subjective Patient seen and evaluated this morning while resting in chair while sketching a picture on his bedside table. His leg is elevated slightly on a pillow this morning. It looks much worse today with large blisters noted on the right lateral surface of the lower extremity. Later reassessed patient andthe blisters were much larger and the leg more edematous. He was up in the chair with his leg in the dependent positive all day. His hemoglobin was 7.0 this morning but rechecked this afternoon and trended up to 7.3. Discussed with collaborator sending patient over to [facility] for orthopedic consult and he was agreeable. Patient agrees with this plan. He states he hopes that they open up h is leg as it is very uncomfortable. Patient is now back in bed with his leg elevated. Patient is currently on Ceftriaxone IV for UTI but should cover any cellulitis of the right lower extremity. Patient denies any fever, chills, cough, shortness of breath, chest pain, abdominal pain, nausea or dysuria. His eliquis is on hold. Objective Vitals and Measurements T: 36.7 C (Oral) TMIN: 36.4 C (Oral) TMAX: 37.9 C (Axillary) HR: 62(Monitored) RR: 20 BP: 132/56 SpO2: 98% WT: 163.9 kg Intake and Output 7AM Yesterday to 7AM Today Intake and Output (Last 24 hours) Intake Output Urine Count 1.00 Total Summary Total Intake 0.00 Total Output 0.00 Fluid Balance 0.00 Physical Exam General: No acute distress. Patient is alert, chronically ill-appearing. Skin: No rash. Skin is warm, dry and intact. HEENT: Head is normocephalic, traumatic. Pupils are equal, round and reactive. Ecchymosis surrounding right eye, improving. Neck: Supple. No lymphadenopathy, thyromegaly. Lungs: Bilaterally clear but diminished without crepitation or wheeze. Unlabored. Heart: Heart is regular rhythm, S1, S2. No murmurs, gallops or rubs. Abdomen: Abdomen is soft, nontender, obese. Bowels sounds present in all quadrants. Extremities: No clubbing, cyanosis. Peripheral pulses palpable. No calf tenderness. Right lower extremity ecchymotic with 3 large blisters noted on lateral surface, 3+ edema. Left lower extremity with 2+ edema. Neurological: Patient is awake and alert to person, place and time. Following simple commands, moving all extremities. Weight Current Weight Dosing Weight: 170.4 kg (10/04/23) Current Weight: 163.9 kg (10/06/23) Dosing Weight: 170.4 kg (10/03/23) Current Weight: 171.7 kg (10/05/23) Medications Medications (28) Active Scheduled: (18) albuterol 0.083% Soln UD (2.5mg/3 mL) 2.5 mg 3 mL, Inhalation, QIDRT amiodarone 200 mg tablet 200 mg 1 tab(s), Oral, BID amLODIPine 5 mg tablet 5 mg 1 tab(s), Oral, qDay ascorbic acid 500 mg tablet 500 mg 1 tab(s), Oral, qDay aspirin 81 mg EC 81 mg 1 tab(s), Oral, Daily atorvastatin 10 mg tablet 20 mg 2 tab(s), Oral, qDay budesonide 0.5 mg/2 mL Susp UD 0.5 mg 2 mL, Inhalation, BIDRT bumetanide 1 mg tablet 0.5 mg 0.5 tab(s), Oral, BID carvedilol 12.5 mg tablet 25 mg 2 tab(s), Oral, BID cefTRIAXone 2 gram(s), IV Piggyback, qDay diltiazem 180 mg/24 hours ER capsule 180 mg 1 cap(s), Oral, qDay docusate sodium 100 mg Capsule 100 mg 1 cap(s), Oral, BID ferrous sulfate 325 mg Tablet 325 mg 1 tab(s), Oral, qDay insulin glargine 100 units/ml solution 75 unit(s) 0.75 mL, Subcutaneous, qDay insulin lispro 100 units/mL Soln (3 mL) Give 0-5 units/dose, Subcutaneous, TIDAC metformin 500 mg ER tablet 1,000 mg 2 tab(s), Oral, qDay polyethylene glycol 3350 - UD packet 17 gram(s) 15 mL, Oral, qDay tamsulosin 0.4 mg Capsule 0.4 mg 1 cap(s), Oral, BID Continuous: (0) PRN: (10) acetaminophen 325 mg Tablet 650 mg 2 tab(s), Oral, q4h acetaminophen 325 mg Tablet 650 mg 2 tab(s), Oral, q4h acetaminophen-HYDROcodone 325-5 mg tablet 1 tab(s), Oral, q4h benzonatate 100 mg Capsule 100 mg 1 cap(s), Oral, TID calcium carbonate 500 mg Chewable 500 mg 1 tab(s), Chewed, TID guaifenesin 100 mg/5 mL Liquid SUGAR-FREE 120 mL 200 mg 10 mL, Oral, q4h ipratropium 0.02% (0.5mg/2.5mL) UD 0.5 mg 2.5 mL, Inhalation, q4hRT melatonin 3 mg tablet 6 mg 2 tab(s), Oral, qHS morphine 2 mg/mL 1 mL syringe 2 mg 1 mL, IV Push, q3h ondansetron 2 mg/ 1 mL 2 mL INJ 4 mg 2 mL, IV Push, q4h Lab Results 10/05 14:19 Hgb: 7.3 L Hct: 21.9 L 10/05 05:23 WBC: 8.2 Hgb: 7.0 L Hct: 20.7 L Platelet: 149 Neutrophil %: 73.8 Glucose Level: 130 H Sodium Level: 139 Potassium Level: 4.9 BUN: 28 H Creatinine Lvl (s): 1.44 H Imaging Results and Diagnostics CT Tibia/Fibula w/o Contrast Right Result Date: October 06, 2023 Verified By: Contributor_system SHERRYDarrel CLINICAL STATEMENT: IMPRESSION: 1. Large hematoma in the lateral superficial adipose tissues and extendingn early the entire length of the tibia. 2. Additional small hematoma in the anterolateral soft tissues near the femur. 3. No acute osseous injury. XR Tibia/Fibula 2 Views Right Result Date: October 03, 2023 Verified By: SHAYNA DOMINGUEZ MD CLINICAL STATEMENT: IMPRESSION: No acute fracture. Diffuse soft tissue edema. I have personally reviewed the images of this examination and agree with the resident's findings and interpretation. XR Knee 1 or 2 Views Right Result Date: October 03, 2023 Verified By: SHAYNA DOMINGUEZ MD CLINICAL STATEMENT: IMPRESSION: No acute abnormality of the knee. CT Spine Cervical w/o Contrast Result Date: October 03, 2023 Verified By: MARILEE CHAVEZ DO CLINICAL STATEMENT: IMPRESSION: No acute abnormality of the cervical spine. CT Head or Brain w/o Contrast Result Date: October 03, 2023 Verified By: SHAYNA DOMINGUEZ MD CLINICAL STATEMENT: IMPRESSION: 1. Sensitivity and specificity is reduced due to extensive streak artifact.Within theseconfines: No acute intracranial abnormality.2. Right frontal laceration and soft tissue hematoma. XR Chest 1 View Result Date: October 03, 2023 Verified By: SHAYNA DOMINGUEZ MD CLINICAL STATEMENT: IMPRESSION: Hypoventilatory changes notably with bronchovascular crowding and interstitial prominence. Superimposed mild pulmonary edema may be present.Infectious etiology should also be considered in the appropriate clinical setting. I have personally reviewed the images of this examination and agree with the resident's findings and interpretation. CT Maxillofacial w/o Contrast Result Date: October 03, 2023 Verified By: SHAYNA DOMINGUEZ MD CLINICAL STATEMENT: IMPRESSION: No acute traumatic injury of the facial bones. Right frontal scalp laceration and soft tissue hematoma. Opacified left maxillary sinus could reflect sinusitis in the appropriate clinical context. EKG No qualifying data available. Assessment/Plan 1. Weakness Acute, new onset, s/p mechanical fall at home with forehead laceration and right lower extremity injury. Consult placed to PT and OT to evaluate and treat - following. director of environmental services following for discharge planning needs. Patient was accepted by [facility] but now transferring to [facility]. 2. Hematoma of leg Acute, new onset, worsening with multiple blisters today. Transfer to [facility] for orthopedic consult. Eliquis on hold. 3. Facial laceration Acute, new onset, repair done in ED. Cleanse daily with NS and cover as needed. 4. Atrial flutter Chronic, rate controlled. Apixaban on hold since Wednesday. Continue current antiarrhythmics. 5. Diabetes mellitus type 2 Chronic. Blood sugar checks before meals and at bedtime. Cover with corrective sliding scale insulin. ADA diet. Blood glucose goal of 180 or less and avoid hypoglycemia. 6. Heart failure Chronic. Last echo was 03/2022 demonstrating EF 50-60%, diastolic dysfunction. Appears to be euvolemic. Continue current home medications. 7. 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 GFR baseline 48-57 - 49 this am. Monitor BMP. 8. Apnea, sleep Chronic. May use home CPAP at bedtime. Son has not brought it in yet. 9. Obesity Chronic. Encourage weight loss with lifestyle modification. DVT prophylaxis with ambulation. Eliquis on hold due to huge hematoma on right leg and low hemoglobin, 7.3 today. Code status: Full Code. Labs, diagnostic test and progress notes reviewed as noted in HPI. Plan of care discussed with patient. All questions answered. Patient verbalizes understanding and is agreeable with plan of care. This case was discussed with collaborating physician, Dr. Danie Alberto. Time Spent 45 minutes spent reviewing past diagnostic tests, reviewing lab results, vital sign trends, medicalhistory, reviewing medications and ordering home medications, examining patient, discussed plan of care with nursing, social and political studies professor and therapy, collaborating with physician, and documenting in chart. Digitally Signed by WU WADSWORTH on 10/06/2023 06:28 PM [facility]03-27-2024 Note ORIGINAL EXAMINATION: CT OF THE RIGHT TIBIA AND FIBULA WITHOUT CONTRAST 10/06/2023 3:19 pm TECHNIQUE: CT of the right tibia and fibula was performed without the administration of intravenous contrast. Multiplanar reformatted images are provided for review. Automated exposure control, iterative reconstruction, and/or weight based adjustment of the mA/kV was utilized to reduce the radiation dose to as low as reasonably achievable. COMPARISON: None. HISTORY ORDERING SYSTEM PROVIDED HISTORY: Reason for Exam: evaluate large hematoma FINDINGS: Bones: No evidence of acute fracture or dislocation. No aggressive appearing osseous abnormality or periostitis. Soft Tissue: Large lateral soft tissue hematoma measuring 11.0 x 5.8 x 28.5 cm. Superior to this at the level of the femur is an additional anterolateral hematoma measuring 7.0 x 1.9 x 7.3 cm. Edema is noted throughout the superficial adipose tissues of the tear lower extremity. Joint: No significant degenerative changes. No osseous erosions. IMPRESSION: 1. Large hematoma in the lateral superficial adipose tissues and extending nearly the entire length of the tibia. 2. Additional small hematoma in the anterolateral soft tissues near the femur. 3. No acute osseous injury. Interpreted by: Dl Black MD Preliminary Report By: Dl Black MD Electronically signed By Dl Black MD Dictated Date: 10/06/2023 5:40:32 PM Prelim Date: 10/06/2023 5:43:23 PM Sign Date: 10/06/2023 5:43:23 PM Ordering Provider: [facility]03-27-2024 Note. MICRO - Microbiology PROCEDURE: Urine Culture [O1 *1] SOURCE: Urine BODY SITE: COLLECTED DATE/TIME: 10/04/2023 14:39 EDT RECEIVED DATE/TIME: 10/04/2023 20:14 EDT START DATE/TIME: 10/04/2023 20:14 EDT FREE TEXT SOURCE: FINAL REPORTS Final Report [] Verified Date/Time/Personnel: 10/06/2023 08:02 EDT 10,000 - 50,000 cfu/ml Enterobacter cloacae complex PRELIMINARY REPORTS Preliminary Report [] Verified Date/Time/Personnel: 10/05/2023 10:23 EDT 10,000 - 50,000 cfu/ml Enterobacter cloacae complex KIARA to follow SUSCEPTIBILITY RESULTS Enterobacter cloacae complex Antibiotic KIARA Dilut KIARA Inter Ampicillin 16 Intermediate Ampicillin/ 8/4 Susceptible Sulbactam Aztreonam <=4 Susceptible Cefazolin >16 Resistant Cefotaxime <=2 Susceptible Cefuroxime 8 Susceptible Ciprofloxacin 1 Resistant Ertapenem <=0.5 Susceptible Gentamicin <=2 Susceptible ID Panel Not Not Applicable Applicable Imipenem <=1 Susceptible Levofloxacin 1 Intermediate Meropenem <=1 Susceptible Minocycline <=4 Susceptible Nitrofurantoin 64 Intermediate Piperacillin/ <=8 Susceptible Tazobactam Trimethoprim/ <=0.5/9.5 Susceptible Sulfa Order Comments O1: Urine Culture Added by Discern Performing Locations *1: This test was performed at: [facility], [address] [place] [address], [id number] , [facility] ([place])10-05-2023 Note Date of Service 10/05/2023 Chief Complaint Fall, right leg pain Subjective Patient seen and evaluated this morning while resting in bed. He states that he is doing fine this morning but continues to have pain in his right lower extremity. Right lower extremity evaluated andappears to be unchanged from yesterday Discussed with patient that the hematoma on his right leg may need to be evacuated. He states that his leg rodriguez today. He was able to get up to the bedside commode yesterday and worked with therapy. He feels that the Thaxton is working better for his pain than the morphine at this point as it lasts longer. Patient denies any fever, chills, cough, shortness ofbreath, chest pain, abdominal pain, nausea or dysuria. He was finally able to empty his bladder yest erday. He reports that he had some burning after nursing attempted to place a catheter but was ableto empty his bladder since then. All questions answered. Objective Vitals and Measurements T: 36.8 C (Oral) TMIN: 36.5 C (Oral) TMAX: 36.8 C (Oral) HR: 65(Monitored) RR: 18 BP: 124/63 SpO2: 93% WT: 171.7 kg BMI: 46.6 Intake and Output 7AM Yesterday to 7AM Today Intake and Output (Last 24 hours) Intake Oral Intake 470.00 Output Urine Count 4.00 Total Summary Total Intake 470.00 Total Output 0.00 Fluid Balance 470.00 Physical Exam General: No acute distress. Patient is alert, chronically ill-appearing. Skin: No rash. Skin is warm, dry and intact. HEENT: Head is normocephalic, traumatic. Pupils are equal, round and reactive. Ecchymosis and edemanoted around right eye. Sutures noted in eyebrow above right eye. Neck: Supple. No lymphadenopathy, thyromegaly. Lungs: Bilaterally clear but diminished without crepitation or wheeze. Unlabored. Heart: Heart is regular rhythm, S1, S2. No murmurs, gallops or rubs. Abdomen: Abdomen is soft, nontender, obese. Bowels sounds present in all quadrants. Extremities: No clubbing, cyanosis; 2+ edema noted in BLE. Peripheral pulses palpable. No calf tenderness. Right lower extremity ecchymotic on sage and later leg. Neurological: Patient is awake and alert to person, place and time. Following simple commands, moving all extremities. Weight Current Weight Dosing Weight: 170.4 kg (10/04/23) Current Weight: 171.7 kg (10/05/23) Dosing Weight: 170.4 kg (10/03/23) Medications Medications (25) Active Scheduled: (15) albuterol 0.083% Soln UD (2.5mg/3 mL) 2.5 mg 3 mL, Inhalation, QIDRT amiodarone 200 mg tablet 200 mg 1 tab(s), Oral, BID amLODIPine 5 mg tablet 5 mg 1 tab(s), Oral, qDay ascorbic acid 500 mg tablet 500 mg 1 tab(s), Oral, qDay aspirin 81 mg EC 81 mg 1 tab(s), Oral, Daily atorvastatin 10 mg tablet 20 mg 2 tab(s), Oral, qDay budesonide 0.5 mg/2 mL Susp UD 0.5 mg 2 mL, Inhalation, BIDRT bumetanide 1 mg tablet 0.5 mg 0.5 tab(s), Oral, BID carvedilol 12.5 mg tablet 25 mg 2 tab(s), Oral, BID diltiazem 180 mg/24 hours ER capsule 180 mg 1 cap(s), Oral, qDay ferrous sulfate 325 mg Tablet 325 mg 1 tab(s), Oral, qDay insulin glargine 100 units/ml solution 75 unit(s) 0.75 mL, Subcutaneous, qDay insulin lispro 100 units/mL Soln (3 mL) Give 0-5 units/dose, Subcutaneous, TIDAC metformin 500 mg ER tablet 1,000 mg 2 tab(s), Oral, qDay tamsulosin 0.4 mg Capsule 0.4 mg 1 cap(s), Oral, BID Continuous: (0) PRN: (10) acetaminophen 325 mg Tablet 650 mg 2 tab(s), Oral, q4h acetaminophen 325 mg Tablet 650 mg 2 tab(s), Oral, q4h acetaminophen-HYDROcodone 325-5 mg tablet 1 tab(s), Oral, q4h benzonatate 100 mg Capsule 100 mg 1 cap(s), Oral, TID calcium carbonate 500 mg Chewable 500 mg 1 tab(s), Chewed, TID guaifenesin 100 mg/5 mL Liquid SUGAR-FREE 120 mL 200 mg 10 mL, Oral, q4h ipratropium 0.02% (0.5mg/2.5mL) UD 0.5 mg 2.5 mL, Inhalation, q4hRT melatonin 3 mg tablet 6 mg 2 tab(s), Oral, qHS morphine 2 mg/mL 1 mL syringe 2 mg 1 mL, IV Push, q3h ondansetron 2 mg/ 1 mL 2 mL INJ 4 mg 2 mL, IV Push, q4h Lab Results 10/04 05:26 WBC: 9.1 Hgb: 8.2 L Hct: 23.8 L Platelet: 155 Neutrophil %: 76.2 Glucose Level: 145 H Sodium Level: 140 Potassium Level: 5.2 H BUN: 34 H Creatinine Lvl (s): 1.66 H 10/03 05:15 Glucose Level: 134 H Sodium Level: 143 Potassium Level: 5.0 BUN: 30 H Creatinine Lvl (s): 1.42 H Imaging Results and Diagnostics XR Tibia/Fibula 2 Views Right Result Date: October 03, 2023 Verified By: SHAYNA DOMINGUEZ MD CLINICAL STATEMENT: IMPRESSION: No acute fracture. Diffuse soft tissue edema. I have personally reviewed the images of this examination and agree with the resident's findings and interpretation. XR Knee 1 or 2 Views Right Result Date: October 03, 2023 Verified By: SHAYNA DOMINGUEZ MD CLINICAL STATEMENT: IMPRESSION: No acute abnormality of the knee. CT Spine Cervical w/o Contrast Result Date: October 03, 2023 Verified By: MARILEE CHAVEZ DO CLINICAL STATEMENT: IMPRESSION: No acute abnormality of the cervical spine. CT Head or Brain w/o Contrast Result Date: October 03, 2023 Verified By: SHAYNA DOMINGUEZ MD CLINICAL STATEMENT: IMPRESSION: 1. Sensitivity and specificity is reduced due to extensive streak artifact. Within these confines: No acute intracranial abnormality. 2. Right frontal laceration and soft tissue hematoma. XR Chest 1 View Result Date: October 03, 2023 Verified By: SHAYNA DOMINGUEZ MD CLINICAL STATEMENT: IMPRESSION: Hypoventilatory changes notably with bronchovascular crowding and interstitial prominence. Superimposed mild pulmonary edema may be present.Infectious etiology should also be considered in the appropriate clinical setting. I have personally reviewed the images of this examination and agree with the resident's findings and interpretation. CT Maxillofacial w/o Contrast Result Date: October 03, 2023 Verified By: SHAYNA DOMINGUEZ MD CLINICAL STATEMENT: IMPRESSION: No acute traumatic injury of the facial bones. Right frontal scalp laceration and soft tissue hematoma. Opacified left maxillary sinus could reflect sinusitis in the appropriate clinical context. EKG No qualifying data available. Assessment/Plan 1. Weakness Acute, new onset, s/p mechanical fall at home with forehead laceration and right lower extremity injury. Consult placed to PT and OT to evaluate and treat - following. director of environmental services following for discharge planning needs. Referral sent to [facility] - auth pending. 2. Hematoma of leg Acute, new onset s/p fall. Hematoma is unchanged from yesterday. Hemoglobin noted to drop from 12.4yesterday to 8.2 today. Leg is warm to touch, ecchymotic. Discussed hematoma with orthopedics who felt that this patient would be high risk and that the hematoma should be allowed to reabsorb naturally. Will continue to monitor right leg off the eliquis for another day or so. Monitor CBC. 3. Facial laceration Acute, new onset, sutures placed in ED. Cleanse daily with NS and cover as needed. 4. Atrial flutter Chronic, rate controlled. Continue apixaban at current dose. Continue current antiarrhythmics. 5. Diabetes mellitus type 2 Chronic. Blood sugar checks before meals and at bedtime. Cover with corrective sliding scale insulin. ADA diet. Blood glucose goal of 180 or less and avoid hypoglycemia. 6. Heart failure Chronic. Last echo was 03/2022 demonstrating EF 50-60%, diastolic dysfunction. Appears to be euvolemic. Continue current home medications. 7. 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 GFR baseline 48-57 - 47 this am. Monitor BMP. 8. Apnea, sleep Chronic. May use home CPAP at bedtime. Patient states son would not know how to detach his CPAP to bring it in. He states he is fine on supplemental oxygen. 9. Obesity Chronic. Encourage weight loss with lifestyle modification. DVT prophylaxis with eliquis - on hold for now due to large hematoma on right leg. Code status: Full Code. Labs, diagnostic test and progress notes reviewed as noted in HPI. Plan of care discussed with patient. All questions answered. Patient verbalizes understanding and is agreeable with plan of care. This case was discussed with collaborating physician, Dr. Danie Alberto. Time Spent 45 minutes spent reviewing past diagnostic tests, reviewing lab results, vital sign trends, medicalhistory, reviewing medications and ordering home medications, examining patient, discussed plan of care with nursing, social and political studies professor and therapy, collaborating with physician, and documenting in chart. Digitally Signed by WU WADSWORTH on 10/05/2023 12:39 PM [facility]03-25-2024 Evaluation + Plan noteExtracted from: Title:History and Physical Author:WU WADSWORTH Date:10/04/23 1. Weakness Acute, new onset, s/p mechanical fall at home with forehead laceration and right lower extremity injury. Consult placed to PT and OT to evaluate and treat. director of environmental services following for discharge planning needs. 2. Facial laceration Acute, new onset, repair done in ED. Cleanse daily with NS and cover as needed. 3. Atrial flutter Chronic, rate controlled. Continue apixaban at current dose. Continue current antiarrhythmics. 4. Diabetes mellitus type 2 Chronic. Blood sugar checks before meals and at bedtime. Cover with corrective sliding scale insulin. ADA diet. Blood glucose goal of 180 or less and avoid hypoglycemia. 5. Heart failure Chronic. Last echo was 03/2022 demonstrating EF 50-60%, diastolic dysfunction. Appears to be euvolemic. Continue current home medications. 6. 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 GFR baseline 48-57 - 50 this am. Monitor BMP. 7. Apnea, sleep Chronic. May use home CPAP at bedtime. 8. Obesity Chronic. Encourage weight loss with lifestyle modification. DVT prophylaxis with eliquis. Code status: Full Code. Labs, diagnostic test and progress notes reviewed as noted in HPI. Plan of care discussed with patient. All questions answered. Patient verbalizes understanding and is agreeable with plan of care. This case was discussed with collaborating physician, Dr. Rob Montenegro. 55 minutes spent reviewing past diagnostic tests, reviewing lab results, vital sign trends, medical history, reviewing medications and ordering home medications, examining patient, discussed plan of care with nursing, social and political studies professor and therapy, collaborating with physician, and documenting in chart. Future Appointments Appointment Date:10/22/2023 08:30:00 AM Scheduled Provider: Location:[facility] Appointment Type:NUT Diet Visit Individual Appointment Date:10/22/2023 09:30:00 AM Scheduled Provider:KELLIE BENITES Location:[facility] Appointment Type:PC OV Appointment Date:12/30/2023 09:00:00 AM Scheduled Provider: Location:[facility] Appointment Type:MEDS - Diabetic Individual Visit Future Scheduled Tests Laboratory* Basic Metabolic Panel 02/13/23 * Prostate Specific Antigen 02/13/23 * Prostate Specific Antigen 10/08/22 * Complete Blood Count 10/08/22 * Lipid Profile 10/08/22 * Albumin/Creatinine Ratio, Random Urine 06/11/23 * Complete Metabolic Panel 10/08/22 [facility] 03-25-2024 Note Date of Service 10/04/2023 Chief Complaint pt had witnessed fall. hit head on door handle. pt LOC twice in squad. History of Present Illness Patient is a 68-year-old male, who follows with Kellie Benites CNP with a past medical history significant for atrial flutter, heart failure, type 2 diabetes mellitus, and morbid obesity, presented to [facility] emergency department with the chief complaint of fall. Patient states that he was taking his trash out to the garage yesterday when the phone rang. He was rushing to get the phone and tripped over his own two feet at home. He fell striking his head on a drawer pull before falling to the floor. He reports that he did not lose consciousness at home but passed out twice on the way to the ED due to the situation. Patient arrived complaining of a headache and right knee pain. He reports bilateral lower extremity edema which is chronic. He also stated that he was short of breath but that was also about baseline for him. He does wear 2L of oxygen at home. He denies any fever, chills, cough, chest pain, abdominal pain, nausea or dysuria. In the emergency department, x-rays of the right knee and right tibia/fibula were negative for acute fracture. Right tibia/fibula demonstrated diffuse soft tissue edema. Chest x-ray demonstrated hypoventilatory changes and mild pulmonary edema. CT of the head negative for acute intracranial abnormality but demonstrated frontal laceration and soft tissue swelling. CT of the cervical spine negativefor acute abnormality. CBC unremarkable. BMP significant for glucose 175, sodium 146, BUN 31 and creatinine 1.49. Urinalysis pending. Patient was administered a tetanus shot and 2 mg morphine IV. Thecase was discussed with the ED physician who recommended admission for weakness and PT/OT evaluation. Patient will be transferred to medical surgical unit for observation. We will consult PT and OT to evaluate and treat. We will consult social and political studies professor for discharge planning needs. Repeat CBC and BMP in the am. Patient seen and evaluated this morning while resting in bed. He states that he is unable to bear weight on his right leg secondary to pain. He denies any dizziness or lightheadedness contributing tohis fall yesterday. He is aware that the plan is for PT and OT to evaluate him today. He may need to be placed until he is able to move better. Patient states he could get into the basement of his home without using steps and then stay down there. He then describes the basement as mildewy so thatmay not be the best plan. All questions answered. Review of Systems Review of Systems: Reviewed in detail, including general health, HEENT, cardiovascular, respiratory, gastrointestinal, genitourinary, endocrine, musculoskeletal, neurologic, vascular, skin, and psychiatric. All are negative except for those listed in the History of Present Illness. Physical Exam Vitals and Measurements T: 36.5 C (Oral) TMIN: 36.3 C (Oral) TMAX: 36.6 C (Oral) HR: 57(Apical) RR: 18 BP: 120/74 SpO2: 96%HT: 188 cm WT: 170.4 kg BMI: 48.21 Weight Dosing Weight: 170.4 kg (10/04/23) Dosing Weight: 170.4 kg (10/03/23) General: No acute distress. Patient is alert and appropriate. Skin: No rash. Skin is warm, dry and intact. HEENT: Head is normocephalic, traumatic. Pupils are equal, round and reactive. Right eye with ecchymosis and edema noted of the eyelid and surrounding tissues. Sutures placed in right eyebrow. Neck: Supple. No lymphadenopathy, thyromegaly. Lungs: Bilaterally clear but diminished without crepitation or wheeze. Unlabored. Heart: Heart is regular rhythm, S1, S2. No murmurs, gallops or rubs. Abdomen: Abdomen is soft, nontender, obese. Bowels sounds present in all quadrants. Extremities: No clubbing, cyanosis; 2+ edema and erythema noted in left lower extremity. Right lower extremity ecchymotic on anterior and lateral sides, 2+ edema. Peripheral pulses palpable. No calf tenderness. Neurological: Patient is awake and alert to person, place and time. Following simple commands, moving all extremities. Lab Results 10/03 05:15 Glucose Level: 134 H Sodium Level: 143 Potassium Level: 5.0 BUN: 30 H Creatinine Lvl (s): 1.42 H 10/02 15:59 WBC: 9.0 Hgb: 12.4 L Hct: 36.9 L Platelet: 175 Neutrophil %: 79.7 Glucose Level: 175 H Sodium Level: 146 H Potassium Level: 5.1 BUN: 31 H Creatinine Lvl (s): 1.49 H Imaging Results and Diagnostics XR Tibia/Fibula 2 Views Right Result Date: October 03, 2023 Verified By: SHAYNA DOMINGUEZ MD CLINICAL STATEMENT: IMPRESSION: No acute fracture. Diffuse soft tissue edema. I have personally reviewed the images of this examination and agree with the resident's findings and interpretation. XR Knee 1 or 2 Views Right Result Date: October 03, 2023 Verified By: SHAYNA DOMINGUEZ MD CLINICAL STATEMENT: IMPRESSION: No acute abnormality of the knee. CT Spine Cervical w/o Contrast Result Date: October 03, 2023 Verified By: MARILEE CHAVEZ DO CLINICAL STATEMENT: IMPRESSION: No acute abnormality of the cervical spine. CT Head or Brain w/o Contrast Result Date: October 03, 2023 Verified By: SHAYNA DOMINGUEZ MD CLINICAL STATEMENT: IMPRESSION: 1. Sensitivity and specificity is reduced due to extensive streak artifact.Within theseconfines: No acute intracranial abnormality. 2. Right frontal laceration and soft tissue hematoma. XR Chest 1 View Result Date: October 03, 2023 Verified By: SHAYNA DOMINGUEZ MD CLINICAL STATEMENT: IMPRESSION: Hypoventilatory changes notably with bronchovascular crowding and interstitial prominence. Superimposed mild pulmonary edema may be present.Infectious etiology should also be considered in the appropriate clinical setting. I have personally reviewed the images of this examination and agree with the resident's findings and interpretation. CT Maxillofacial w/o Contrast Result Date: October 03, 2023 Verified By: SHAYNA DOMINGUEZ MD CLINICAL STATEMENT: IMPRESSION: No acute traumatic injury of the facial bones. Right frontal scalp laceration and soft tissue hematoma. Opacified left maxillary sinus could reflect sinusitis in the appropriate clinical context. Assessment/Plan 1. Weakness Acute, new onset, s/p mechanical fall at home with forehead laceration and right lower extremity injury. Consult placed to PT and OT to evaluate and treat. director of environmental services following for discharge planning needs. 2. Facial laceration Acute, new onset, repair done in ED. Cleanse daily with NS and cover as needed. 3. Atrial flutter Chronic, rate controlled. Continue apixaban at current dose. Continue current antiarrhythmics. 4. Diabetes mellitus type 2 Chronic. Blood sugar checks before meals and at bedtime. Cover with corrective sliding scale insulin. ADA diet. Blood glucose goal of 180 or less and avoid hypoglycemia. 5. Heart failure Chronic. Last echo was 03/2022 demonstrating EF 50-60%, diastolic dysfunction. Appears to be euvolemic. Continue current home medications. 6. 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 GFR baseline 48-57 - 50 this am. Monitor BMP. 7. Apnea, sleep Chronic. May use home CPAP at bedtime. 8. Obesity Chronic. Encourage weight loss with lifestyle modification. DVT prophylaxis with eliquis. Code status: Full Code. Labs, diagnostic test and progress notes reviewed as noted in HPI. Plan of care discussed with patient. All questions answered. Patient verbalizes understanding and is agreeable with plan of care. This case was discussed with collaborating physician, Dr. Rob Montenegro. 55 minutes spent reviewing past diagnostic tests, reviewing lab results, vital sign trends, medicalhistory, reviewing medications and ordering home medications, examining patient, discussed plan of care with nursing, social and political studies professor and therapy, collaborating with physician, and documenting in chart. Problem List/Past Medical History Ongoing Acute embolism and thrombosis of deep vein of left distal leg Aftercare following surgery AORTIC VALVE DISEASE Apnea, sleep Atrial flutter 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 Left, 6.6-cm, LP, posterior. *MMP-morbid obesity, CKD, DM, HTN, CHF, DVT/PE. *BT-Coumadin, ASA. Right hip pain S/P AVR (aortic valve replacement) SOB (shortness of breath) Historical Bowel infarction Procedure/Surgical History Cardioversion: 2022 Repair of inguinal hernia Bladder IVC - Insertion of inferior vena caval filter IVC - Removal of inferior vena caval filter Colectomy Aortic valve Medications Home Medications (18) Active amiodarone 200 mg oral tablet 200 mg = 1 tab(s), Oral, BID amLODIPine 5 mg oral tablet 5 mg = 1 tab(s), Oral, qDay aspirin 81 mg oral delayed release tablet 81 mg = 1 tab(s), Oral, Daily atorvastatin 20 mg oral tablet 20 mg = 1 tab(s), Oral, qDay budesonide-formoterol 160 mcg-4.5 mcg/inh Inhaler 2 puff(s), Inhalation, Daily bumetanide 1 mg oral tablet 0.5 mg = 0.5 tab(s), Oral, BID Cardizem CD 180 mg/24 hours oral capsule, extended release 180 mg = 1 cap(s), Oral, qDay carvedilol 25 mg oral tablet 25 mg = 1 tab(s), Oral, BID Eliquis 5 mg oral tablet 5 mg = 1 tab(s), Oral, BID furosemide 40 mg oral tablet 40 mg = 1 tab(s), Oral, qDay IRON (ferrous sulfate 325 mg) 65 mg oral tablet 325 mg = 1 tab(s), Oral, qDay MetFORMIN (Eqv-Glucophage XR) 500 mg oral tablet, EXTENDED RELEASE 1,000 mg = 2 tab(s), Oral, qDay Mounjaro 5 mg/0.5 mL subcutaneous solution 5 mg, Subcutaneous, qWeek Mounjaro 5 mg/0.5 mL subcutaneous solution 5 mg, Subcutaneous, qWeek O2 Pen needles 8 mm See Instructions Tresiba FlexTouch 200 units/mL 3 mL subcutaneous solution 75 unit(s), Subcutaneous, qDay Vitamin C 500 mg oral tablet 500 mg = 1 tab(s), Oral, qDay Allergies Nuprin (Unknown) misc non-codified allergy (unknown) Social History Smoking Status - 11/02/2017 Former smoker Alcohol - Denies Alcohol Use, 11/02/2017 Use: Past., 04/23/2023 Home/Environment Domestic Concerns: None. Living situation: Home/Independent. 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 Current HomeTreatments Oxygen therapy, CPAP. Professional Skilled Services or Special Community Resources None., 02/28/2021 Nutrition/Health Type of diet: Just started seeing nutrionist at [facility], doesn't eat much fruits or veggies. Drinks milk.. Appetite Good. Eating Difficulties None. Caffeine intake amount: coffee once a week., 04/23/2023 Substance Abuse - Denies Substance Abuse, 11/02/2017 Use: Never., 02/09/2019 Tobacco Nicotine Use: Former smoker, quit more than 30 days ago. Type: Cigarettes. Number of years: 30. Stopped at age: 45 Years., 02/28/2021 Family History Bladder cancer: Negative: Mother, Father and Sister. Cancer: Brother. Diabetes mellitus: Mother. Prostate cancer: Negative: Mother, Father and Brother. Renal cancer: Brother.Negative: Mother, Father and Sister. Sleep apnea: Sister. Immunizations pneumococcal 13-valent conjugate vaccine: 0.5 unknown unit (06/16/17) pneumococcal 23-valent vaccine(Pneumovax: 0.5 unknown unit (06/13/18) pneumococcal 23-valent vaccine(Pneumovax: 0 unknown unit (07/14/16) pneumococcal 23-valent vaccine(Pneumovax: 0 unknown unit (07/10/16) pneumococcal 23-valent vaccine(Pneumovax: 0 unknown unit (05/08/99) SARS-CoV-2 (COVID-19) mRNA-1273 vaccine: 50 mcg (03/05/22) SARS-CoV-2 (COVID-19) mRNA-1273 vaccine: 50 mcg (06/23/21) SARS-CoV-2 mRNA (tozinameran) vaccine: 0.5 unknown unit (10/26/20) SARS-CoV-2 mRNA (tozinameran) vaccine: 0.5 unknown unit (10/05/20) tetanus/diphth/pertuss (Tdap) adult/adol: 0.5 mL (01/04/23) zoster vaccine live: 1 unknown unit (06/16/17) Code Status Code Status - Ordered -- 10/03/23 19:11:00 EDT, Full Code, Constant Order Digitally Signed by [facility] on 10/04/2023 10:27 AM [facility] Res[facility] therapy Hospital Progress note Pt states I don't want to be difficult but I will not be taking another breathing treatment Pt educated on the difference of home inhalers vs hospital nebulizers and will be re-educated on said meds in the morning when next breathing treatments are due Outright refused incentive spirometer at this time Digitally Signed by Amanda Velásquez on 10/03/2023 11:39 PM [facility]03-24-2024 Note ORIGINAL EXAMINATION: TWO XRAY VIEWS OF THE RIGHT TIBIA/FIBULA10/03/2023 7:04 pm COMPARISON: Same day knee radiograph HISTORY: Reason for exam: Fall FINDINGS: There is no acute fracture. Partially imaged ankle joint appears to be in appropriate anatomic alignment, not evaluated in detail confused. Diffuse soft tissue edema. No aggressive osseous lesions. IMPRESSION: No acute fracture. Diffuse soft tissue edema. I have personally reviewed the images of this examination and agree with the resident's findings and interpretation. Interpreted by: Shayna Dominguez Preliminary Report By: Amarjit Fermin Electronically signed By Shayna Dominguez Dictated Date: 10/03/2023 7:08:17 PM Prelim Date: 10/03/2023 7:13:04 PM Sign Date: 10/03/2023 7:14:25 PM Ordering Provider: [facility]03-24-2024 Note Sinus rhythm Prolonged [place] interval Nonspecific intraventricular conduction delay Electronic Signature: ALMAS PEREA DO 10/03/2023 18:08:38[facility] 03-24-2024 Note ORIGINAL EXAMINATION: TWO XRAY VIEWS OF THE RIGHT KNEE 10/03/2023 5:25 pm COMPARISON: None. HISTORY: ORDERING SYSTEM PROVIDED HISTORY: Reason for Exam: pain FINDINGS: No evidence of acute fracture or dislocation. Patellar tendon enthesophyte. No focal osseous lesion. No evidence of joint effusion. No focal soft tissue abnormality. IMPRESSION: No acute abnormality of the knee. Interpreted by: Shayna Dominguez Preliminary Report By: Shayna Dominguez Electronically signed By Shayna Dominguez Dictated Date: 10/03/2023 5:34:42 PM Prelim Date: 10/03/2023 5:35:14 PM Sign Date: 10/03/2023 5:35:14 PM Ordering Provider: [facility]03-24-2024 Note ORIGINAL EXAMINATION: ONE XRAY VIEW OF THE CHEST10/03/2023 5:23 pm COMPARISON: Chest radiograph 11/03/2021 HISTORY: ORDERING SYSTEM PROVIDED HISTORY: Reason for Exam: cough FINDINGS: The cardiomediastinal silhouette and median sternal wires appear similar given difference in technique. Low lung volumes with hypoventilatory change, notably diffuse interstitial prominence and bronchovascular crowding. No large focal consolidative opacity. No large pleural effusion. No pneumothorax. IMPRESSION: Hypoventilatory changes notably with bronchovascular crowding and interstitial prominence. Superimposed mild pulmonary edema may be present. Infectious etiology should also be considered in the appropriate clinical setting. I have personally reviewed the images of this examination and agree with the resident's findings and interpretation. Interpreted by: Shayna Dominguez Preliminary Report By: Amarjit Fermin Electronically signed By Shayna Dominguez Dictated Date: 10/03/2023 5:35:05 PM Prelim Date: 10/03/2023 5:36:57 PM Sign Date: 10/03/2023 5:39:25 PM Ordering Provider: [facility]03-24-2024 Note ORIGINAL EXAMINATION: CT OF THE CERVICAL SPINE WITHOUT CONTRAST 10/03/2023 5:23 pm TECHNIQUE: CT of the cervical spine was performed without the administration of intravenous contrast. Multiplanar reformatted images are provided for review. Automated exposure control, iterative reconstruction, and/or weight based adjustment of the mA/kV was utilized to reduce the radiation dose to as low as reasonably achievable. COMPARISON: None. HISTORY: ORDERING SYSTEM PROVIDED HISTORY: Reason for Exam: pain Fall injury FINDINGS: The patient is rotated and tilted in posture, somewhat compromising the study, but the alignment of the spine is maintained. The vertebral bodies, articular pillars and other posterior elements are intact with no evidence of fracture or subluxation. The atlanto-axial relationship is maintained. Mild degenerative changes are seen, particularly in the lower cervical spine. The paraspinal soft tissue structures are unremarkable. There is complete opacification of the partially included left maxillary sinus. Some chronic sclerosis of multiple inferior left mastoid air cells. IMPRESSION: No acute abnormality of the cervical spine. Interpreted by: Marilee Chavez DO Preliminary Report By: Marilee Chavez DO Electronically signed By Marilee Chavez DO Dictated Date: 10/03/2023 5:30:00 PM Prelim Date: 10/03/2023 5:35:35 PM Sign Date: 10/03/2023 5:35:35 PM Ordering Provider: [facility]03-24-2024 Note ORIGINAL EXAMINATION: CT OF THE FACE WITHOUT CONTRAST 10/03/2023 5:22 pm TECHNIQUE: CT of the face was performed without the administration of intravenous contrast. Multiplanar reformatted images are provided for review. Automated exposure control, iterative reconstruction, and/or weight based adjustment of the mA/kV was utilized to reduce the radiation dose to as low as reasonably achievable. COMPARISON: None HISTORY: ORDERING SYSTEM PROVIDED HISTORY: Reason for Exam: pain FINDINGS: FACIAL BONES: The frontal sinuses, orbital gamino, maxilla, pterygoid plates, zygomatic arches, hard palate, nasal bones and mandible are intact. The temporomandibular joints are aligned. ORBITAL CONTENTS: The globes appear intact. The extraocular muscles, optic nerve sheath complexes and lacrimal glands appear unremarkable. No retrobulbar hematoma or mass is seen. SINUSES: The left maxillary sinus is opacified. Otherwise there is no evidence of acute sinusitis, such as air fluid level. The mastoid air cells are clear. SOFT TISSUES: There is a right frontal scalp laceration and soft tissue hematoma. IMPRESSION: No acute traumatic injury of the facial bones. Right frontal scalp laceration and soft tissue hematoma. Opacified left maxillary sinus could reflect sinusitis in the appropriate clinical context. Interpreted by: Shayna Dominguez Preliminary Report By: Shayna Dominguez Electronically signed By Shayna Dominguez Dictated Date: 10/03/2023 5:29:20 PM Prelim Date: 10/03/2023 5:32:03 PM Sign Date: 10/03/2023 5:32:03 PM Ordering Provider: [place] [id number] Note ORIGINAL EXAMINATION: CT OF THE HEAD WITHOUT CONTRAST 10/03/2023 5:22 pm TECHNIQUE: CT of the head was performed without the administration of intravenous contrast. Automated exposure control, iterative reconstruction, and/or weight based adjustment of the mA/kV was utilized to reduce the radiation dose to as low as reasonably achievable. COMPARISON: None. HISTORY: ORDERING SYSTEM PROVIDED HISTORY: Reason for Exam: pain FINDINGS: Sensitivity and specificity is reduced due to extensive streak artifact. Within these confines: BRAIN/VENTRICLES: There is no acute intracranial hemorrhage, mass effect or midline shift. No abnormal extra-axial fluid collection. The humphrey-white differentiation is maintained without evidence of an acute infarct. There is no evidence of hydrocephalus. ORBITS: The visualized portion of the orbits demonstrate no acute abnormality. SINUSES: The left maxillary sinus is opacified. SOFT TISSUES/SKULL: No acute abnormality of the visualized skull there is a right frontoparietal laceration and a right frontal soft tissue hematoma. IMPRESSION: 1. Sensitivity and specificity is reduced due to extensive streak artifact. Within these confines: No acute intracranial abnormality. 2. Right frontal laceration and soft tissue hematoma. Interpreted by: Shayna Dominguez Preliminary Report By: Shayna Dominguez Electronically signed By Shayna Dominguez Dictated Date: 10/03/2023 5:26:34 PM Prelim Date: 10/03/2023 5:29:10 PM Sign Date: 10/03/2023 5:29:10 PM Ordering Provider: [facility]03-24-2024 Note Atrial fibrillation Paired ventricular premature complexes Nonspecific T abnrm, anterolateral leads Borderline ST elevation Artifact in lead(s) I,II,III,aVR,aVL,aVF,V1,V2,V3,V4,V5,V6 Compared to ECG at 01/26/2023 10:04:05 Electronic Signature: ALMAS PEREA DO 10/03/2023 16:19:52[facility] 01-12-2024 Note ORIGINAL EXAMINATION: SCREENING ULTRASOUND OF THE AORTA07/23/2023 10:50 am Ultrasound of the abdominal aorta COMPARISON: CT 07/02/2021 HISTORY: ORDERING SYSTEM PROVIDED HISTORY: Reason for Exam: age and risk appropriate screening, FINDINGS: Patient's large body habitus limits visualization of the aorta. Only segmental visualization is possible. The abdominal aorta shows at least mild atherosclerotic changes. The proximal common iliac arteries are nonaneurysmal. AP and Transverse diameter of the proximal segment: 3.1 x 3.1 cm AP and Transverse diameter of the mid segment: 2.9 x 3.0 cm AP and Transverse diameter of the distal segment: 2.3 x 2.1 cm IMPRESSION: Suboptimal visualization of the aorta. Based on these measurements, there is a 3.1 cm aneurysm of the proximal aorta. A 3 year followup is recommended based on the AAA size interval of 3.0-3.4 cm. Reference: J Vasc Surgery 2009 Apr;50(4 Supplemental):S2-49 Interpreted by: Reginaldo Owen MD Preliminary Report By: Reginaldo Owen MD Electronically signed By Reginaldo Owen MD Dictated Date: 07/23/2023 12:47:55 PM Prelim Date: 07/23/2023 12:51:23 PM Sign Date: 07/23/2023 12:51:23 PM Ordering Provider: [facility]09-05-2023 Hospital Discharge instructions Patient Education 03/16/2023 12:52:39 Cardiac SD - Right Heart Cath (Internal Jugular) Discharge Instructions 02/2022(CUSTOM) RIGHT HEART CATHETERIZATION DISCHARGE INSTRUCTIONS AFTER -PROCEDURE ACTIVITIES No heavy lifting above 10 pounds for the remainder of the day. Do not bend over for 24 hours. You may return to normal activities the following day. Do not shower for 24 hours after procedure. You may remove the dressing on your groin in 24 hours and leave site open to air. No driving for 48 hours. WHAT TO WATCH FOR Monitor procedure site and IV site for signs of bleeding. If bleeding occurs, hold light pressure on the puncture site until bleeding resolves. Monitor for any signs of infection which include: Temperature above 101 degrees Fahrenheit The site becomes red and inflamed or warm to the touch Any pus or foul-smelling drainage coming out of the procedure site Increased pain that does not resolve (Some bruising and tenderness is normal). 03/16/2023 12:52:39 3- Heart Cath/PCI radial (04/2018) (CUSTOM) HEART CATHETERIZATION/PCI (radial) Discharge Instructions HOLD METFORMIN UNTIL WEDNESDAY MORNING DIET Drink plenty of fluids for the next 48 hours to help your kidneys flush the heart cath dye out of your system ACTIVITY For the next 48 hours: Do not deep bend the wrist Do not lift, push, or pull anything over 5 pounds Do not use the hand/arm to support your weight when rising from a chair or bed Do not drive For the next 7 days: Do not submerse your procedure site in water Do not swim, wash dishes, or take tub baths You may write, eat, type, and shower WOUND CARE You will go home with a dressing and arm board on your arm. Tomorrow, remove both, wash with gentlesoap and water/shower, pat dry and apply a band aid dressing. Keep a Band-Aid on your procedure site for the next 3-4 days Change the Band-Aid daily or if it gets wet/soiled AFTER YOU GO HOME, CALL YOUR DOCTOR FOR: Any increase in bruising or tenderness from the procedure site Any redness, pus, or other signs of infection at the site A temperature above 100.5 Severe pain at the site DIAL 911 AND RETURN TO THE HOSPITAL FOR: Any bleeding from the procedure site. The site may be bruised or tender, but it should not be bleeding at any time. If your site begins to bleed, hold firm pressure on it and dial 911 to return to the hospital Any increase in swelling at the procedure site. An increase in swelling could mean the area is bleeding under the skin. Hold firm pressure to the site and dial 911 to return to the hospital Document Released: 06/28/2006 Document Revised: 06/14/2013 Document Reviewed: 06/29/2014 [facility] Patient Information 2015 [email or web address]. This information is not intended to replace advicegiven to you by your health care provider. Make sure you discuss any questions you have with your health care provider. 03/16/2023 10:37:55 Moderate Conscious Sedation, Adult, Care After Moderate Conscious Sedation, Adult, Care After These instructions provide you with information about caring for yourself after your procedure. Your health care provider may also give you more specific instructions. Your treatment has been plannedaccording to current medical practices, but problems sometimes occur. Call your health care provider if you have any problems or questions after your procedure. What can I expect after the procedure? After your procedure, it is common: To feel sleepy for several hours. To feel clumsy and have poor balance for several hours. To have poor judgment for several hours. To vomit if you eat too soon. Follow these instructions at home: For at least 24 hours after the procedure: Do not: ?Participate in activities where you could fall or become injured. ?Drive. ?Use heavy machinery. ?Drink alcohol. ?Take sleeping pills or medicines that cause drowsiness. ?Make important decisions or sign legal documents. ?Take care of children on your own. Rest. Eating and drinking Follow the diet recommended by your health care provider. If you vomit: ?Drink water, juice, or soup when you can drink without vomiting. ?Make sure you have little or no nausea before eating solid foods. General instructions Have a responsible adult stay with you until you are awake and alert. Take dhaq-dma-lrduyqe and prescription medicines only as told by your health care provider. If you smoke, do not smoke without supervision. Keep all follow-up visits as told by your health care provider. This is important. Contact a health care provider if: You keep feeling nauseous or you keep vomiting. You feel light-headed. You develop a rash. You have a fever. Get help right away if: You have trouble breathing. This information is not intended to replace advice given to you by your health care provider. Make sure you discuss any questions you have with your health care provider. Document Released: 04/18/2014 Document Revised: 06/10/2018 Document Reviewed: 10/17/2016 [employer] Patient Education 2020 [employer]. Follow Up Care 03/02/2023 09:36:04 With:ANDREW FREEDMAN MD Address: [address] [facility] [place] [address]- [phone] When:04/15/2023 09:30:00 Comments:THIS APPOINTMENT WILL BE WITH GERMANIA AG CNP [facility] 09-05-2023 Summary of episode note Discharge Instructions Thank you for allowing [facility] to assist you with your healthcare needs. The following is importantdischarge information regarding your hospital visit. Your Care Team KELLIE BENITES What to do next Scheduled Follow-Up Appointments Appointment Type When With Where Contact InformationDB Diabetic Individual Visit (AOH) 04/07/2023 09:00 AM JOSÉ [facility] Visits [phone] CV OV 04/15/2023 09:30 AM GAVINO HSU [facility] PC OV 07/09/2023 09:00 AM KELLIE SHELL [place] [address] [place] [phone] PC OV 07/13/2023 09:00 AM KELLIE SHELL [facility] [address] [place] [phone] Follow Up Appointments Follow Up with ANDREW FREEDMAN MD When 04/15/2023 09:30 AM EDT Why: THIS APPOINTMENT WILL BE WITH GERMANIA AG CNP Where: [address] [facility] [place] [address]- [phone] The Following Activity and Diet Have Been Ordered for You No qualifying data available. No qualifying data available. The Following Equipment Has Been Ordered for You No qualifying data available. The Following Treatments Have Been Ordered for You Discharge Labs Discharge Outpatient Labwork - Ordered -- BMP, follow up, follow-up within: 5-7 days, 03/16/23 9:54:00 EDT Discharge Radiology No qualifying data available. Other Therapies No qualifying data available. Post Acute Orders No qualifying data available. Someone Will Contact You Regarding These Home Health Referrals No home referrals have been ordered for you. No one will call you. Allergies Nuprin (Unknown) [facility] non-codified allergy Medications Please ask your primary doctor or pharmacist before taking any other medication not listed, including over the counter drugs, herbal medications, vitamins and or supplements as they may interact withyour home medications. What How Much When Why Instructions Last Dose New bumetanide (bumetanide 1 mg oral tablet) 1 tab(s) by mouth Two (2) times a day Pickup at [facility] Unchanged amiodarone (amiodarone 200 mg oral tablet) 1 tab(s) by mouth Two (2) times a day Unchanged apixaban (Eliquis 5 mg oral tablet) 1 tab(s) by mouth Two (2) times a day Unchanged ascorbic acid (Vitamin C 500 mg oral tablet) 1 tab(s) by mouth Once a day Unchanged aspirin (aspirin 81 mg oral delayed release tablet) 1 tab(s) by mouth Every day Unchanged atorvastatin (atorvastatin 20 mg oral tablet) 1 tab(s) by mouth Once a day Diabetes mellitus type 2 Duration: 90 Days fenofibrate is being d/ c Unchanged budesonide-formoterol (budesonide-formoterol 160 mcg-4.5 mcg/ inh Inhaler) 2 puff(s) by inhalation Every day Duration: 90 Days Unchanged carvedilol (carvedilol 25 mg oral tablet) 1 tab(s) by mouth Two (2) times a day Duration: 90 Days Unchanged dilTIAZem (Cardizem CD 180 mg/ 24 hours oral capsule, extended release) 1 cap by mouth Once a day Unchanged DME (Pen needles 8 mm) See instructions BD UF 8mm 31 G (short)Use to inject insulin once daily Unchanged ferrous sulfate (IRON (ferrous sulfate 325 mg) 65 mg oral tablet) 1 tab(s) by mouth Once a day Take with food. Unchanged insulin degludec (Tresiba FlexTouch 200 units/ mL 3 mL subcutaneous solution) 96 unit(s) Subcutaneous Once a day rotate injection sites Unchanged metFORMIN (MetFORMIN (Eqv-Glucophage XR) 500 mg oral tablet, EXTENDED RELEASE) 2 tab(s) by mouth Once a day Duration: 90 Days Okay to fill generic metformin ER nonosmotic Unchanged semaglutide (Ozempic 8 mg/ 3 mL (2 mg dose) subcutaneous solution) 2 Milligram Subcutaneous Every week in the abdomen, thigh, or upper arm Pharmacy Information [facility]: [address] [place] [address] [phone] What How Much When Comments Stop Taking furosemide (Lasix 40 mg oral tablet) 1 tab(s) by mouth Two (2) times a day Please take this list to your next doctor s visit. Bring all medications you take, including over the counter medications, herbals and other supplements with you to your doctor s visit. Patients and families are reminded to discard old lists and to update any records with all medication providers or retail pharmacies. Medication Leaflets bumetanide (oral/injection) (byoo a nide) What is the most important information I should know about bumetanide? You should not use bumetanide if you are unable to urinate, if you have severe kidney or liver disease, if you are severely dehydrated, or if you have an electrolyte imbalance (low potassium or magnesium). What is bumetanide? Bumetanide is diuretic that is used to treat fluid retention (edema) in people with congestive heart failure, liver disease, or a kidney disorder such as nephrotic syndrome. Bumetanide may also be used for purposes not listed in this medication guide. What should I discuss with my healthcare provider before using bumetanide? You should not use bumetanide if you are allergic to it, or if you have: severe kidney disease or are unable to urinate; severe liver disease or cirrhosis; severe dehydration; or an electrolyte imbalance (such as low levels of potassium or magnesium in your blood). Tell your doctor if you have ever had: a heart rhythm disorder; liver disease; kidney disease (or if you are on dialysis); gout; an allergy to sulfa drugs; or if you are on a low-salt diet. Tell your doctor if you are or breast-feeding. Bumetanide is not approved for use by anyone younger than 18 years old. How should I take bumetanide? Follow all directions on your prescription label and read all medication guides or instruction sheets. Your doctor may occasionally change your dose. Use the medicine exactly as directed. Bumetanide injection is injected into a muscle, or given as an infusion into a vein. A healthcare provider will give you this injection if you are unable to take the medicine by mouth. Bumetanide will make you urinate more often and you may get dehydrated easily. Follow your doctor'sinstructions about taking potassium supplements or getting enough salt and potassium in your diet. Call your doctor if you are sick with vomiting or diarrhea, or if you are sweating more than usual.You can easily become dehydrated while taking bumetanide. This can lead to very low blood pressure,a serious electrolyte imbalance, or kidney failure. You will need frequent medical tests. Store at room temperature away from heat, moisture, and light. What happens if I miss a dose? Bumetanide is sometimes used only once, so you may not be on a dosing schedule. If you are on a dosing schedule, take the medicine as soon as you can, but skip the missed dose if it is almost time for your next dose. Do not take two doses at one time. What happens if I overdose? Seek emergency medical attention or call the Poison Help line at . Overdose symptoms may include extreme dizziness or weakness, confusion, loss of appetite, stomach cramps, and vomiting. What should I avoid while taking bumetanide? Avoid becoming dehydrated. Follow your doctor's instructions about the type and amount of liquids you should drink while you are taking bumetanide. What are the possible side effects of bumetanide Get emergency medical help if you have signs of an allergic reaction: hives; difficult breathing; swelling of your face, lips, tongue, or throat. Call your doctor at once if you have: hearing problems; confusion, hallucinations, problems with thought or memory; trouble speaking or understanding what is said to you; unusual weakness; twitching, or a seizure; weak or shallow breathing; easy bruising, unusual bleeding, purple or red spots under your skin; low magnesium--dizziness, irregular heartbeats, feeling jittery, muscle cramps, muscle spasms, cough or choking feeling; low potassium level--leg cramps, constipation, irregular heartbeats, fluttering in your chest, increased thirst or urination, numbness or tingling, muscle weakness or limp feeling; or dehydration symptoms--feeling very thirsty or hot, being unable to urinate, heavy sweating, or hot and dry skin. Common side effects may include: muscle cramps; dizziness; low blood presure; nausea; or headache. This is not a complete list of side effects and others may occur. Call your doctor for medical advice about side effects. You may report side effects to FDA at 4-680-YLB-2736. What other drugs will affect bumetanide? Bumetanide can harm your kidneys, especially if you also use certain medicines for infections, cancer, osteoporosis, organ transplant rejection, bowel disorders, high blood pressure, or pain or arthritis (including Advil, Motrin, and Aleve). Tell your doctor about all your other medicines, especially: lithium; digoxin; probenecid; indomethacin; blood pressure medication; or any other diuretic. This list is not complete. Other drugs may affect bumetanide, including prescription and fkuu-xyd-fqhfsjp medicines, vitamins, and herbal products. Not all possible drug interactions are listed here. Where can I get more information? Your pharmacist can provide more information about bumetanide. Remember, keep this and all other medicines out of the reach of children, never share your medicines with others, and use this medication only for the indication prescribed. Every effort has been made to ensure that the information provided by [employer]. ('[employer]') is accurate, up-to-date, and complete, but no guarantee is made to that effect. Drug information contained herein may be time sensitive. [employer] information has been compiled for use by healthcare practitioners and consumers in the [place] and therefore [employer] does not warrant that uses outside of the [place] are appropriate, unless specifically indicated otherwise. [employer] drug information does not endorse drugs, diagnose patients or recommend therapy. [employer] drug information isan informational resource designed to assist licensed healthcare practitioners in caring for their p atients and/or to serve consumers viewing this service as a supplement to, and not a substitute for, the expertise, skill, knowledge and judgment of healthcare practitioners. The absence of a warningfor a given drug or drug combination in no way should be construed to indicate that the drug or drug combination is safe, effective or appropriate for any given patient. [employer] does not assume any responsibility for any aspect of healthcare administered with the aid of information [employer] provides. The information contained herein is not intended to cover all possible uses, directions, precautions, warnings, drug interactions, allergic reactions, or adverse effects. If you have questions about the drugs you are taking, check with your doctor, nurse or pharmacist. Copyright 8923-9198 [employer]. Version: 9.01. Revision Date: 02/11/2023. Education Materials RIGHT HEART CATHETERIZATION DISCHARGE INSTRUCTIONS AFTER -PROCEDURE ACTIVITIES No heavy lifting above 10 pounds for the remainder of the day. Do not bend over for 24 hours. You may return to normal activities the following day. Do not shower for 24 hours after procedure. You may remove the dressing on your groin in 24 hours and leave site open to air. No driving for 48 hours. WHAT TO WATCH FOR Monitor procedure site and IV site for signs of bleeding. If bleeding occurs, hold light pressure on the puncture site until bleeding resolves. Monitor for any signs of infection which include: Temperature above 101 degrees Fahrenheit The site becomes red and inflamed or warm to the touch Any pus or foul-smelling drainage coming out of the procedure site Increased pain that does not resolve (Some bruising and tenderness is normal). HEART CATHETERIZATION/PCI (radial) Discharge Instructions HOLD METFORMIN UNTIL WEDNESDAY MORNING DIET Drink plenty of fluids for the next 48 hours to help your kidneys flush the heart cath dye out of your system ACTIVITY For the next 48 hours: Do not deep bend the wrist Do not lift, push, or pull anything over 5 pounds Do not use the hand/arm to support your weight when rising from a chair or bed Do not drive For the next 7 days: Do not submerse your procedure site in water Do not swim, wash dishes, or take tub baths You may write, eat, type, and shower WOUND CARE You will go home with a dressing and arm board on your arm. Tomorrow, remove both, wash with gentlesoap and water/shower, pat dry and apply a band aid dressing. Keep a Band-Aid on your procedure site for the next 3-4 days Change the Band-Aid daily or if it gets wet/soiled AFTER YOU GO HOME, CALL YOUR DOCTOR FOR: Any increase in bruising or tenderness from the procedure site Any redness, pus, or other signs of infection at the site A temperature above 100.5 Severe pain at the site DIAL 911 AND RETURN TO THE HOSPITAL FOR: Any bleeding from the procedure site. The site may be bruised or tender, but it should not be bleeding at any time. If your site begins to bleed, hold firm pressure on it and dial 911 to return to the hospital Any increase in swelling at the procedure site. An increase in swelling could mean the area is bleeding under the skin. Hold firm pressure to the site and dial 911 to return to the hospital Document Released: 06/28/2006 Document Revised: 06/14/2013 Document Reviewed: 06/29/2014 ExitCare Patient Information 2015 [email or web address]. This information is not intended to replace advicegiven to you by your health care provider. Make sure you discuss any questions you have with your health care provider. Moderate Conscious Sedation, Adult, Care After These instructions provide you with information about caring for yourself after your procedure. Your health care provider may also give you more specific instructions. Your treatment has been plannedaccording to current medical practices, but problems sometimes occur. Call your health care provider if you have any problems or questions after your procedure. What can I expect after the procedure? After your procedure, it is common: To feel sleepy for several hours. To feel clumsy and have poor balance for several hours. To have poor judgment for several hours. To vomit if you eat too soon. Follow these instructions at home: For at least 24 hours after the procedure: Do not: ? Participate in activities where you could fall or become injured. ? Drive. ? Use heavy machinery. ? Drink alcohol. ? Take sleeping pills or medicines that cause drowsiness. ? Make important decisions or sign legal documents. ? Take care of children on your own. Rest. Eating and drinking Follow the diet recommended by your health care provider. If you vomit: ? Drink water, juice, or soup when you can drink without vomiting. ? Make sure you have little or no nausea before eating solid foods. General instructions Have a responsible adult stay with you until you are awake and alert. Take cwbg-uly-fdjulnm and prescription medicines only as told by your health care provider. If you smoke, do not smoke without supervision. Keep all follow-up visits as told by your health care provider. This is important. Contact a health care provider if: You keep feeling nauseous or you keep vomiting. You feel light-headed. You develop a rash. You have a fever. Get help right away if: You have trouble breathing. This information is not intended to replace advice given to you by your health care provider. Make sure you discuss any questions you have with your health care provider. Document Released: 04/18/2014 Document Revised: 06/10/2018 Document Reviewed: 10/17/2016 [employer] Patient Education 2020 [employer]Buddy. Additional Information VACCINATE! IT SAVES LIVES! Members of the community who have not yet received the COVID-19 vaccine and would like to receive it can visit one of [facility] vaccine clinics. There are many vaccine clinic locations within the [facility]. For locations and available times, please visit [email or web address].[place].gov/. It is important to note that some COVID mobile vaccine clinics are held outdoors and may be canceled in rainy or stormy conditions. To learn more about pediatric vaccinations (ages 5-11), we invite you to visit the [facility] webpage. [email or web address] [email or web address] learn more about the COVID-19 vaccine, we invite you to visit the CDC website for a list of frequently asked questions.https://www.cdc.gov/coronavirus/2019-ncov/vaccines/faq.html [facility] Patient Portal Access Instructions: Stay connected with your healthcare team and access your personal medical information anytime with the [facility] [employer] Patient Portal. Please follow the directions below to create your [facility] [employer] account: 1.Access the email account you provided upon registration to the hospital/physician office.2.Look for an invitation email from [facility].3.Open the email and access the invitation link: AcceptInvitation to [facility] [employer].4.Fill in the required breen to create your account. To access your account, visit [email or web address]. Click the blue button labeled Access Patient Portal and then log in with the username and password that you created in the steps above. You will be able to view your test results, lab results, a summary of your visits, upcoming appointments and more. There is also a convenient messaging option where you can send secure messages to your p rovider. In addition, you will have the ability to download any documents or summaries to your computer and/or send the information securely to a physician. Remember that your healthcare information is confidential, so carefully consider who you will allowto register on the [facility] [employer] Patient Portal for access to your information. You can also access the [facility] [email or web address] Patient Portal on the [facility] [employer] priscilla. Simply click on Patient Portal and then log into your account. If you would like to receive a full copy of your medical records, please contact the [facility] Medical Records Department by calling [phone], Wednesday through Wednesday between 8 a.m. and 4:30 p.m. HOW TO SAFELY DISPOSE OF PRESCRIPTION MEDICATIONS Please use one of the following methods to safely dispose of your unused medications. 1.Use a drug disposal kit: the drug disposal pouch allows you to safely discard your old and unuseddrugs. Ask your nurse to give you one when you are discharged.2.Visit a local take-back location: Many local pharmacies and police departments have programs that collect old and unwanted prescriptiondrugs. Call your local pharmacy or go to http://bit.ly/9S6Gx5r to find one close to you.3.Make use of household items: Use cat litter or old coffee grounds to dispose medications if other options arenot available. Mix your drugs with these household products, seal them in an airtight container andthrow it into the garbage. Call [facility]: [phone] to be sure your drugs can be disposed of in this way. Some medicines may require a different approach.4.Never flush your medications down the toilet. IF YOU HAVE BEEN PRESCRIBED AN OPIOID FOR PAIN If you have been prescribed an opioid (such as hydrocodone, oxycodone or morphine), it is critical to understand the possible side effects and risks of opioid pain medications. Even when taken as directed, opioids can have several side effects including: Tolerance, meaning you might need to take more of a medication for the same pain relief. Nausea, vomiting and/or constipation. Sleepiness, dizziness, dry mouth, confusion, depression or itching. Physical dependence, meaning you have withdrawal symptoms when a medication is stopped, can develop within a few days. KNOW YOUR RESPONSIBILITIES It is important to know exactly how much and how often to take the opioid pain medications you are prescribed. Never take opioids in higher amounts or more often than prescribed. Do not combine opioids with alcohol or other drugs that cause drowsiness, such as benzodiazepines, also known as benzos, including diazepam and alprazolam, muscle relaxants or sleep aids. Never sell or share prescription opioids. This is illegal. Store opioids in a secure place and out of reach of others (including children, family, friends and visitors). The last page of this document has been signed and retained as a CHART COPY. Signatures Patient Education Materials Cardiac SD - Right Heart Cath (Internal Jugular) Discharge Instructions 02/2022(CUSTOM) 3- Heart Cath/PCI radial (04/2018) (CUSTOM) Moderate Conscious Sedation, Adult, Care After Medication Leaflets bumetanide (oral/injection) My discharge plan and instructions have been reviewed and explained to me and I,JADON ALVAREZ understand my current condition and have read and understand these discharge instructions. I have received a written copy of the plan/instructions. If I have questions, I am aware that I should contact my doctor. 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 Patient underwent the procedure andtolerated well without any difficulty. Study showed mild coronary artery disease. It also showed mildly elevated wedge pressure. Will change Lasix to Bumex. Follow-up BMP in 5 to 7 days. Routine outpatient follow-up recommended. Patient advised for healthy lifestyle modification including weight reduction. Allergies Nuprin (Unknown) misc non-codified allergy Procedures Left and right heart cath Consults No qualifying data available. Objective Vitals and Measurements T: 36.4 C (Oral) HR: 55(Apical) RR: 20 BP: 144/70 SpO2: 94% HT: 182.9 cm WT: 170.2 kg Weight Dosing Weight: 170.2 kg (03/16/23) General Appearance: Comfortable, not in acute distress HEENT:Bilateral normal eye movements, normal oral cavity Neck: No JVD noted Cardiac: S1, S2, no murmurs, regular rhythm, normal rate, Lungs: No wheezes, normal chest expansion. Abdomen: No tenderness, no distention, normal bowel sounds. Musculoskeletal: No signs of acute synovitis. Neurological: Alert and oriented x3, no focal neurological deficits grossly. Extremities: Lateral pitting edema noted Psychiatric: Appropriate, normal mood. Code Status No qualifying data available. Admission Date 03/16/2023 Discharge Date 03/16/2023 Medications New Prescription bumetanide (bumetanide 1 mg oral tablet)1 tab(s) by mouth two (2) times a day. Refills: 0. Unchanged amiodarone (amiodarone 200 mg oral tablet)1 tab(s) by mouth two (2) times a day. Refills: 5. apixaban (Eliquis 5 mg oral tablet)1 tab(s) by mouth two (2) times a day. Refills: 1. ascorbic acid (Vitamin C 500 mg oral tablet)1 tab(s) by mouth once a day. aspirin (aspirin 81 mg oral delayed release tablet)1 tab(s) by mouth every day. Refills: 3. atorvastatin (atorvastatin 20 mg oral tablet)1 tab(s) by mouth once a day for 90 Days. fenofibrate is being d/c. Refills: 1. budesonide-formoterol (budesonide-formoterol 160 mcg-4.5 mcg/inh Inhaler)2 puff(s) by inhalation every day for 90 Days. Refills: 1. carvedilol (carvedilol 25 mg oral tablet)1 tab(s) by mouth two (2) times a day for 90 Days. Refills: 3. dilTIAZem (Cardizem CD 180 mg/24 hours oral capsule, extended release)1 cap by mouth once a day. Refills: 5. DME (Pen needles 8 mm)BD UF 8mm 31 G (short)Use to inject insulin once daily. Refills: 11. ferrous sulfate (IRON (ferrous sulfate 325 mg) 65 mg oral tablet)1 tab(s) by mouth once a day. Takewith food.. insulin degludec (Tresiba FlexTouch 200 units/mL 3 mL subcutaneous solution)96 unit(s) Subcutaneousonce a day. rotate injection sites. Refills: 6. metFORMIN (MetFORMIN (Eqv-Glucophage XR) 500 mg oral tablet, EXTENDED RELEASE)2 tab(s) by mouth once a day for 90 Days. Okay to fill generic metformin ER nonosmotic. Refills: 1. semaglutide (Ozempic 8 mg/3 mL (2 mg dose) subcutaneous solution)2 Milligram Subcutaneous every week. in the abdomen, thigh, or upper arm. Refills: 11. Discontinued furosemide (Lasix 40 mg oral tablet)1 tab(s) by mouth two (2) times a day. Refills: 3. Follow Up Follow Up with ANDREW FREEDMAN MD When 04/15/2023 09:30 AM EDT Why: THIS APPOINTMENT WILL BE WITH GERMANIA AG CNP Where: [address] [facility] [place] [address]- [phone] Follow Up Appointments No qualifying data available. Follow Up Labs/Studies Discharge Labs Discharge Outpatient Labwork - Ordered -- BMP, follow up, follow-up within: 5-7 days, 03/16/23 9:54:00 EDT Discharge Studies No Follow-up Studies Discharge Diet No qualifying data available. Discharge Activity No qualifying data available. Condition on Discharge Stable Readmission Risk/Palliative Score No qualifying data available. Discharge Disposition Home Digitally Signed by MILA TOMLINSON MD on 03/16/2023 09:56 AM [id number] Discharge summary Date of Service 03/16/2023 Discharge Diagnosis Shortness of breath Elective left and right heart cath Hospital Course 67-year-old male with past medical history of surgical aortic valve replacement presented for elective left and right heart cath for shortness of breath complaint. Patient underwent the procedure andtolerated well without any difficulty. Study showed mild coronary artery disease. It also showed mildly elevated wedge pressure. Will change Lasix to Bumex. Follow-up BMP in 5 to 7 days. Routine outpatient follow-up recommended. Patient advised for healthy lifestyle modification including weight reduction. Allergies [facility] (Unknown) [facility] Procedures Left and right heart cath Consults No qualifying data available. Objective Vitals and Measurements T: 36.4 C (Oral) HR: 55(Apical) RR: 20 BP: 144/70 SpO2: 94% HT: 182.9 cm WT: 170.2 kg Weight Dosing Weight: 170.2 kg (03/16/23) General Appearance: Comfortable, not in acute distress HEENT:Bilateral normal eye movements, normal oral cavity Neck: No JVD noted Cardiac: S1, S2, no murmurs, regular rhythm, normal rate, Lungs: No wheezes, normal chest expansion. Abdomen: No tenderness, no distention, normal bowel sounds. Musculoskeletal: No signs of acute synovitis. Neurological: Alert and oriented x3, no focal neurological deficits grossly. Extremities: Lateral pitting edema noted Psychiatric: Appropriate, normal mood. Code Status No qualifying data available. Admission Date 03/16/2023 Discharge Date 03/16/2023 Medications New Prescription bumetanide (bumetanide 1 mg oral tablet)1 tab(s) by mouth two (2) times a day. Refills: 0. Unchanged amiodarone (amiodarone 200 mg oral tablet)1 tab(s) by mouth two (2) times a day. Refills: 5. apixaban (Eliquis 5 mg oral tablet)1 tab(s) by mouth two (2) times a day. Refills: 1. ascorbic acid (Vitamin C 500 mg oral tablet)1 tab(s) by mouth once a day. aspirin (aspirin 81 mg oral delayed release tablet)1 tab(s) by mouth every day. Refills: 3. atorvastatin (atorvastatin 20 mg oral tablet)1 tab(s) by mouth once a day for 90 Days. fenofibrate is being d/c. Refills: 1. budesonide-formoterol (budesonide-formoterol 160 mcg-4.5 mcg/inh Inhaler)2 puff(s) by inhalation every day for 90 Days. Refills: 1. carvedilol (carvedilol 25 mg oral tablet)1 tab(s) by mouth two (2) times a day for 90 Days. Refills: 3. dilTIAZem (Cardizem CD 180 mg/24 hours oral capsule, extended release)1 cap by mouth once a day. Refills: 5. DME (Pen needles 8 mm)BD UF 8mm 31 G (short)Use to inject insulin once daily. Refills: 11. ferrous sulfate (IRON (ferrous sulfate 325 mg) 65 mg oral tablet)1 tab(s) by mouth once a day. Takewith food.. insulin degludec (Tresiba FlexTouch 200 units/mL 3 mL subcutaneous solution)96 unit(s) Subcutaneousonce a day. rotate injection sites. Refills: 6. metFORMIN (MetFORMIN (Eqv-Glucophage XR) 500 mg oral tablet, EXTENDED RELEASE)2 tab(s) by mouth once a day for 90 Days. Okay to fill generic metformin ER nonosmotic. Refills: 1. semaglutide (Ozempic 8 mg/3 mL (2 mg dose) subcutaneous solution)2 Milligram Subcutaneous every week. in the abdomen, thigh, or upper arm. Refills: 11. Discontinued furosemide (Lasix 40 mg oral tablet)1 tab(s) by mouth two (2) times a day. Refills: 3. Follow Up Follow Up with ANDREW FREEDMAN MD When 04/15/2023 09:30 AM EDT Why: THIS APPOINTMENT WILL BE WITH GERMANIA AG CNP Where: [address] [facility] [place] [address]- [phone] Follow Up Appointments No qualifying data available. Follow Up Labs/Studies Discharge Labs Discharge Outpatient Labwork - Ordered -- BMP, follow up, follow-up within: 5-7 days, 03/16/23 9:54:00 EDT Discharge Studies No Follow-up Studies Discharge Diet No qualifying data available. Discharge Activity No qualifying data available. Condition on Discharge Stable Readmission Risk/Palliative Score No qualifying data available. Discharge Disposition Home Digitally Signed by MILA TOMLINSON MD on 03/16/2023 09:56 AM [id number] Note* Exam Date Time Procedure Performing Provider Status 03/16/23 9:33 AM Cardiac Catheterization -CV Auth (Verified) [facility] 07-18-2023 Hospital Discharge instructions Patient Education 01/26/2023 11:01:00 Moderate Conscious Sedation, Adult, Care After Moderate Conscious Sedation, Adult, Care After These instructions provide you with information about caring for yourself after your procedure. Your health care provider may also give you more specific instructions. Your treatment has been plannedaccording to current medical practices, but problems sometimes occur. Call your health care provider if you have any problems or questions after your procedure. What can I expect after the procedure? After your procedure, it is common: To feel sleepy for several hours. To feel clumsy and have poor balance for several hours. To have poor judgment for several hours. To vomit if you eat too soon. Follow these instructions at home: For at least 24 hours after the procedure: Do not: ?Participate in activities where you could fall or become injured. ?Drive. ?Use heavy machinery. ?Drink alcohol. ?Take sleeping pills or medicines that cause drowsiness. ?Make important decisions or sign legal documents. ?Take care of children on your own. Rest. Eating and drinking Follow the diet recommended by your health care provider. If you vomit: ?Drink water, juice, or soup when you can drink without vomiting. ?Make sure you have little or no nausea before eating solid foods. General instructions Have a responsible adult stay with you until you are awake and alert. Take [id number] and prescription medicines only as told by your health care provider. If you smoke, do not smoke without supervision. Keep all follow-up visits as told by your health care provider. This is important. Contact a health care provider if: You keep feeling nauseous or you keep vomiting. You feel light-headed. You develop a rash. You have a fever. Get help right away if: You have trouble breathing. This information is not intended to replace advice given to you by your health care provider. Make sure you discuss any questions you have with your health care provider. Document Released: 04/18/2014 Document Revised: 06/10/2018 Document Reviewed: 10/17/2016 [employer] Patient Education 2020 [employer]. 01/26/2023 11:00:49 3- Cardioversion (04/2018)(CUSTOM) CARDIOVERSION Discharge instructions ACTIVITY/SAFETY Please refrain from the following activities for 24 hours: Do not drive a car or operate heavy equipment. Do not consume alcohol for 24 hours. Do not return to work for 24 hours. Postpone signing any important papers or making important decisions. COMFORT Call your primary doctor if you have any redness, tenderness, warmth, discharge or swelling at yourIV site. Your chest or back may get red and/or develop a burning sensation. Apply fragrance-free Aloe Vera lotion. Take Tylenol as needed for pain. DIET When you return home, resume your regular diet unless otherwise directed. Some of the sedatives, anesthetic medications you received today may make you nauseated. If vomiting persists, call your doctor. Restart your usual medications unless otherwise instructed by your doctor. If you have any questions, please call your doctor at the number listed on your follow up instructions. Document Released: 06/28/2006 Document Revised: 06/14/2013 Document Reviewed: 06/29/2014 [employer]Care Patient Information 2015 [email or web address]. This information is not intended to replace advicegiven to you by your health care provider. Make sure you discuss any questions you have with your health care provider. Follow Up Care 01/22/2023 14:16:34 With:KELLIE BENITES APRN-GAS PROVER Address: [address] [place] [address] [place] [phone] When: Unknown Comments:Follow-up as scheduled [facility] 07-18-2023 Procedure note Date of Service January 26, 2023 Procedure performed collaboratively with Dr. Colby Procedure Name Direct-current cardioversion Referring Provider Gavino Ag APRN CNP Consent Informed consent obtained from nursing staff/anesthesia personnel. Patient has been educated about the risks, benefits, and alternatives of this procedure prior to obtaining consent. Indication Atrial fibrillation Location CVOR Technique This is a 67 year old male who presents today for direct current cardioversion secondary to recurrence of atrial fibrillation. Patient verbalized confirmation that he has been on uninterrupted oral anticoagulation with Eliquis for a minimum of 3 weeks prior to procedure. Patient is on antiarrhythmic therapy with amiodarone 200 mg twice daily as well as rate control therapy with diltiazem extended release 180mg/24 hours once daily + carvedilol 25 mg twice daily. Anticoagulated with Eliquis 5mg twice daily. Patient presented in a fasting, well-hydrated state. Presenting rhythm was atrial fibrillation at aheart rate of 87 bpm. Once a HYSTER MACHINE OPERATOR administered an IV anesthetic agent and the patient was fully sedated, an anterior-posterior patch placement was utilized to deliver a synchronized biphasic waveform at 100 J with anterior direct pressure which resulted in the initial return of atrial fibrillation followed by the restora tion of normal sinus rhythm at a heart rate of 75 bpm. The patient tolerated the procedure well and returned to cardiac same-day in stable condition. Digitally Signed by OLIVE HOLLAND on 01/26/2023 10:10 AM [id number] Discharge summary Date of Service January 26, 2023 Discharge Diagnosis Diabetes mellitus type 2 (E11.9 - ICD-10-CM) Ordered: atorvastatin; Start: 01/26/23 22:00:00 EDT, Dose = 20 mg, = 1 tab(s), Oral, qDay, 01/26/23 10:11:00 EDT Additional Orders: Ordered: Cardizem CD 180 mg/24 hours oral capsule, extended release,Start: 01/26/23 10:11:00 EDT, Dose = 180 mg, = 1 cap(s), Oral, qDay, 01/26/23 10:11:00 EDT Ordered: Diet Order,01/26/23 12:10:00 EDT, Start Meal: Now, Regular, Start diet when patient tolerating sips of water without nausea, Constant Order, : N/A, : N/A Ordered: Discharge,01/26/23 10:10:00 EDT, Discharged to: Home Ordered: Discharge Activity,Follow the post-operative/post-procedure activity instructions providedby your physician's office., 01/26/23 10:10:00 EDT Ordered: Discharge Diet,Follow the post-operative/post-procedure diet instructions provided by yourphysician's office., 01/26/23 10:10:00 EDT Ordered: Discharge Driving Restrictions,* Other, specify in special instructions, no driving for today, 01/26/23 10:10:00 EDT Ordered: Discharge Wound Care,Follow the post-operative/post-procedure wound care instructions provided by your physician's office., 01/26/23 10:10:00 EDT Ordered: Discontinue Order,01/26/23 10:10:00 EDT, Once, Discontinue IV prior to discharge, 01/26/2310:10:00 EDT Ordered: Eliquis,Start: 01/26/23 10:11:00 EDT, Dose = 5 mg, = 1 tab(s), Oral, BID, Indication for Use Atrial fibrillation, 01/26/23 10:11:00 EDT Ordered: Feosol,Start: 01/26/23 12:00:00 EDT, Dose = 325 mg, = 1 tab(s), Oral, qDay, 01/26/23 10:11:00 EDT Ordered: Lasix,Start: 01/26/23 10:11:00 EDT, Dose = 40 mg, = 1 tab(s), Oral, qDay, 01/26/23 10:11:00 EDT Ordered: MetFORMIN (Eqv-Glucophage XR),Start: 01/26/23 10:11:00 EDT, Dose = 1,000 mg, = 2 tab(s), Oral, qDay, 01/26/23 10:11:00 EDT Other status: Ozempic 8 mg/3 mL (2 mg dose) subcutaneous solution,Start: 01/26/23 11:00:00 EDT, Dose = 2 mg, Subcutaneous, qWeek, 01/26/23 10:11:00 EDT(Order) Other status: Pen needles 8 mm,Start: 01/26/23 10:11:00 EDT, See Instructions, 01/26/23 10:11:00 EDT(Order) Ordered: Post Procedure Assessment,01/26/23 10:10:00 EDT, Stop Date 01/26/23 10:10:00 EDT, Upon return Same Day and prn Ordered: Tresiba FlexTouch 200 units/mL 3 mL subcutaneous solution,Start: 01/26/23 10:11:00 EDT, Dose = 96 unit(s), = 0.48 mL, Subcutaneous, qDay, 01/26/23 10:11:00 EDT Ordered: Vitamin C,Start: 01/26/23 12:00:00 EDT, Dose = 500 mg, = 1 tab(s), Oral, qDay, 01/26/23 10:11:00 EDT Ordered: amiodarone,Start: 01/26/23 10:11:00 EDT, Dose = 200 mg, = 1 tab(s), Oral, BID, 01/26/23 10:11:00 EDT Ordered: aspirin 81 mg oral delayed release tablet,Start: 01/26/23 10:11:00 EDT, Dose = 81 mg, = 1 tab(s), Oral, Daily, 01/26/23 10:11:00 EDT Other status: budesonide-formoterol 160 mcg-4.5 mcg/inh Inhaler,Start: 01/26/23 10:11:00 EDT, Dose = 2 puff(s), Inhaler, Inhalation, Daily, 01/26/23 10:11:00 EDT(Order) Ordered: carvedilol 25 mg oral tablet,Start: 01/26/23 10:11:00 EDT, Dose = 25 mg, = 1 tab(s), Oral,BID, 01/26/23 10:11:00 EDT End of Orders Hospital Course This is a 67-year-old male who presented today for direct-current cardioversion secondary to recurrence of atrial fibrillation. Patient underwent successful direct-current cardioversion with subsequent zoroastrian of normal sinus rhythm. Patient tolerated the procedure well without significant complication was discharged homein stable condition. Continue current medical therapies. Follow-up as directed. Allergies Nuprin (Unknown) misc non-codified allergy Procedures Direct-current cardioversion Consults No qualifying data available. Objective Vitals and Measurements T: 36.0 C (Temporal Artery) TMIN: 36.0 C (Temporal Artery) TMAX: 36.5 C (Temporal Artery) HR: 66(Monitored) RR: 18 BP: 192/102 SpO2: 97% HT: 182.9 cm WT: 173.2 kg Weight Dosing Weight: 173.2 kg (01/26/23) Code Status No qualifying data available. Admission Date January 26, 2023 Discharge Date January 26, 2023 Patient Instructions No driving for today. Resume your normal activity and diet as tolerated. You may experience some redness or skin irritation where the patches were placed. If desired, you may apply a skin moisturizerto the affected area. Follow-up as directed. Please call the office with any questions, concerns, or new/worsening symptoms. Medications Unchanged amiodarone (amiodarone 200 mg oral tablet)1 tab(s) by mouth two (2) times a day. Refills: 5. apixaban (Eliquis 5 mg oral tablet)1 tab(s) by mouth two (2) times a day. Refills: 1. ascorbic acid (Vitamin C 500 mg oral tablet)1 tab(s) by mouth once a day. aspirin (aspirin 81 mg oral delayed release tablet)1 tab(s) by mouth every day. Refills: 3. atorvastatin (atorvastatin 20 mg oral tablet)1 tab(s) by mouth once a day for 90 Days. fenofibrate is being d/c. Refills: 1. budesonide-formoterol (budesonide-formoterol 160 mcg-4.5 mcg/inh Inhaler)2 puff(s) by inhalation every day for 90 Days. Refills: 1. carvedilol (carvedilol 25 mg oral tablet)1 tab(s) by mouth two (2) times a day for 90 Days. Refills: 3. dilTIAZem (Cardizem CD 180 mg/24 hours oral capsule, extended release)1 cap by mouth once a day. Refills: 5. DME (Pen needles 8 mm)BD UF 8mm 31 G (short)Use to inject insulin once daily. Refills: 11. ferrous sulfate (IRON (ferrous sulfate 325 mg) 65 mg oral tablet)1 tab(s) by mouth once a day. Takewith food.. furosemide (Lasix 40 mg oral tablet)1 tab(s) by mouth once a day. Refills: 3. insulin degludec (Tresiba FlexTouch 200 units/mL 3 mL subcutaneous solution)96 unit(s) Subcutaneousonce a day. rotate injection sites. Refills: 6. metFORMIN (MetFORMIN (Eqv-Glucophage XR) 500 mg oral tablet, EXTENDED RELEASE)2 tab(s) by mouth once a day for 90 Days. Okay to fill generic metformin ER nonosmotic. Refills: 1. semaglutide (Ozempic 8 mg/3 mL (2 mg dose) subcutaneous solution)2 Milligram Subcutaneous every week. in the abdomen, thigh, or upper arm. Refills: 11. Follow Up Appointments No qualifying data available. Follow Up Labs/Studies Discharge Labs No Follow-up Labs Discharge Studies No Follow-up Studies Discharge Diet Discharge Diet - Ordered -- Follow the post-operative/post-procedure diet instructions provided by your physician's office.,01/26/23 10:10:00 EDT Discharge Activity Discharge Activity - Ordered -- Follow the post-operative/post-procedure activity instructions provided by your physician's office., 01/26/23 10:10:00 EDT Condition on Discharge Stable Readmission Risk/Palliative Score No qualifying data available. Discharge Disposition Home Information Provided To Patient Digitally Signed by OLIVE HOLLAND on 01/26/2023 10:13 AM [id number] Summary of episode note Discharge Instructions Thank you for allowing [facility] to assist you with your healthcare needs. The following is importantdischarge information regarding your hospital visit. Your Care Team KELLIE BENITES What to do next Instructions From Your Doctor No driving for today. Resume your normal activity and diet as tolerated. You may experience some redness or skin irritation where the patches were placed. If desired, you may apply a skin moisturizerto the affected area. Follow-up as directed. Please call the office with any questions, concerns, or new/worsening symptoms. Scheduled Follow-Up Appointments Appointment Type When With Where Contact InformationCV OV 03/02/2023 09:00 AM EDT GAVINO AG JASMIN [facility] DB Diabetic Individual Visit ([facility]) 04/07/2023 09:00 AM EDT [place] [facility] [phone] PC OV 07/09/2023 09:00 AM EST KELLIE BENITES [address] [phone] Follow Up Appointments Follow Up with KELLIE BENITES When Why: Follow-up as scheduled Where: [address] [place] [phone] The Following Activity and Diet Have Been Ordered for You Discharge Activity - Ordered -- Follow the post-operative/post-procedure activity instructions provided by your physician's office., 01/26/23 10:10:00 EDT Discharge Driving Restrictions - Ordered -- * Other, specify in special instructions, no driving for today, 01/26/23 10:10:00 EDT Discharge Diet - Ordered -- Follow the post-operative/post-procedure diet instructions provided by your physician's office.,01/26/23 10:10:00 EDT The Following Equipment Has Been Ordered for You Discharge Home Equipment Discharge Wound Care - Ordered -- Follow the post-operative/post-procedure wound care instructions provided by your physician's office., 01/26/23 10:10:00 EDT Allergies Nuprin (Unknown) misc non-codified allergy Medications Please ask your primary doctor or pharmacist before taking any other medication not listed, including over the counter drugs, herbal medications, vitamins and or supplements as they may interact withyour home medications. What How Much When Why Instructions Last Dose Unchanged amiodarone (amiodarone 200 mg oral tablet) 1 tab(s) by mouth Two (2) times a day Unchanged apixaban (Eliquis 5 mg oral tablet) 1 tab(s) by mouth Two (2) times a day Unchanged ascorbic acid (Vitamin C 500 mg oral tablet) 1 tab(s) by mouth Once a day Unchanged aspirin (aspirin 81 mg oral delayed release tablet) 1 tab(s) by mouth Every day Unchanged atorvastatin (atorvastatin 20 mg oral tablet) 1 tab(s) by mouth Once a day Diabetes mellitus type 2 Duration: 90 Days fenofibrate is being d/ c Unchanged budesonide-formoterol (budesonide-formoterol 160 mcg-4.5 mcg/ inh Inhaler) 2 puff(s) by inhalation Every day Duration: 90 Days Unchanged carvedilol (carvedilol 25 mg oral tablet) 1 tab(s) by mouth Two (2) times a day Duration: 90 Days Unchanged dilTIAZem (Cardizem CD 180 mg/ 24 hours oral capsule, extended release) 1 cap by mouth Once a day Unchanged DME (Pen needles 8 mm) See instructions BD UF 8mm 31 G (short)Use to inject insulin once daily Unchanged ferrous sulfate (IRON (ferrous sulfate 325 mg) 65 mg oral tablet) 1 tab(s) by mouth Once a day Take with food. Unchanged furosemide (Lasix 40 mg oral tablet) 1 tab(s) by mouth Once a day Unchanged insulin degludec (Tresiba FlexTouch 200 units/ mL 3 mL subcutaneous solution) 96 unit(s) Subcutaneous Once a day rotate injection sites Unchanged metFORMIN (MetFORMIN (Eqv-Glucophage XR) 500 mg oral tablet, EXTENDED RELEASE) 2 tab(s) by mouth Once a day Duration: 90 Days Okay to fill generic metformin ER nonosmotic Unchanged semaglutide (Ozempic 8 mg/ 3 mL (2 mg dose) subcutaneous solution) 2 Milligram Subcutaneous Every week in the abdomen, thigh, or upper arm Please take this list to your next doctor s visit. Bring all medications you take, including over the counter medications, herbals and other supplements with you to your doctor s visit. Patients and families are reminded to discard old lists and to update any records with all medication providers or retail pharmacies. Education Materials Moderate Conscious Sedation, Adult, Care After These instructions provide you with information about caring for yourself after your procedure. Your health care provider may also give you more specific instructions. Your treatment has been plannedaccording to current medical practices, but problems sometimes occur. Call your health care provider if you have any problems or questions after your procedure. What can I expect after the procedure? After your procedure, it is common: To feel sleepy for several hours. To feel clumsy and have poor balance for several hours. To have poor judgment for several hours. To vomit if you eat too soon. Follow these instructions at home: For at least 24 hours after the procedure: Do not: ? Participate in activities where you could fall or become injured. ? Drive. ? Use heavy machinery. ? Drink alcohol. ? Take sleeping pills or medicines that cause drowsiness. ? Make important decisions or sign legal documents. ? Take care of children on your own. Rest. Eating and drinking Follow the diet recommended by your health care provider. If you vomit: ? Drink water, juice, or soup when you can drink without vomiting. ? Make sure you have little or no nausea before eating solid foods. General instructions Have a responsible adult stay with you until you are awake and alert. Take pvxp-cwv-invipqc and prescription medicines only as told by your health care provider. If you smoke, do not smoke without supervision. Keep all follow-up visits as told by your health care provider. This is important. Contact a health care provider if: You keep feeling nauseous or you keep vomiting. You feel light-headed. You develop a rash. You have a fever. Get help right away if: You have trouble breathing. This information is not intended to replace advice given to you by your health care provider. Make sure you discuss any questions you have with your health care provider. Document Released: 04/18/2014 Document Revised: 06/10/2018 Document Reviewed: 10/17/2016 [employer] Patient Education 2020 [employer] CARDIOVERSION Discharge instructions ACTIVITY/SAFETY Please refrain from the following activities for 24 hours: Do not drive a car or operate heavy equipment. Do not consume alcohol for 24 hours. Do not return to work for 24 hours. Postpone signing any important papers or making important decisions. COMFORT Call your primary doctor if you have any redness, tenderness, warmth, discharge or swelling at yourIV site. Your chest or back may get red and/or develop a burning sensation. Apply fragrance-free Aloe Vera lotion. Take Tylenol as needed for pain. DIET When you return home, resume your regular diet unless otherwise directed. Some of the sedatives, anesthetic medications you received today may make you nauseated. If vomiting persists, call your doctor. Restart your usual medications unless otherwise instructed by your doctor. If you have any questions, please call your doctor at the number listed on your follow up instructions. Document Released: 06/28/2006 Document Revised: 06/14/2013 Document Reviewed: 06/29/2014 ExitCare Patient Information 2015 [facility]. This information is not intended to replace advicegiven to you by your health care provider. Make sure you discuss any questions you have with your health care provider. Additional Information VACCINATE! IT SAVES LIVES! Members of the community who have not yet received the COVID-19 vaccine and would like to receive it can visit one of [facility] vaccine clinics. There are many vaccine clinic locations within the [facility]. For locations and available times, please visit [email or web address].[place].gov/. It is important to note that some COVID mobile vaccine clinics are held outdoors and may be canceled in rainy or stormy conditions. To learn more about pediatric vaccinations (ages 5-11), we invite you to visit the [employer] [facility] webpage. [email or web address]/[email or web address]-[email or web address]-Rynpsuhdac-[email or web address] [email or web address].htmlTo learn more about the COVID-19 vaccine, we invite you to visit the CDC website for a list of frequently asked questions.https://www.cdc.gov/coronavirus/2019-ncov/vaccines/faq.html Book [employer] Patient Portal Access Instructions: Stay connected with your healthcare team and access your personal medical information anytime with the [employer] Patient Portal. Please follow the directions below to create your Book [employer] account: 1.Access the email account you provided upon registration to the hospital/physician office.2.Look for an invitation email from [facility].3.Open the email and access the invitation link: AcceptInvitation to [email or web address]. com.4.Fill in the required breen to create your account. To access your account, visit [email or web address]. Click the blue button labeled Access Patient Portal and then log in with the username and password that you created in the steps above. You will be able to view your test results, lab results, a summary of your visits, upcoming appointments and more. There is also a convenient messaging option where you can send secure messages to your p mandyvider. In addition, you will have the ability to download any documents or summaries to your computer and/or send the information securely to a physician. Remember that your healthcare information is confidential, so carefully consider who you will allowto register on the [facility] for access to your information. You can also access the [facility] on the [place] [facility] priscilla. Simply click on Patient Portal and then log into your account. If you would like to receive a full copy of your medical records, please contact the [facility] Medical Records Department by calling [phone], Wednesday through Wednesday between 8 a.m. and 4:30 p.m. HOW TO SAFELY DISPOSE OF PRESCRIPTION MEDICATIONS Please use one of the following methods to safely dispose of your unused medications. 1.Use a drug disposal kit: the drug disposal pouch allows you to safely discard your old and unuseddrugs. Ask your nurse to give you one when you are discharged.2.Visit a local take-back location: Many local pharmacies and police departments have programs that collect old and unwanted prescriptiondrugs. Call your local pharmacy or go to [email or web address] Bertha/2V3Zg0x to find one close to you.3.Make use of household items: Use cat litter or old coffee grounds to dispose medications if other options arenot available. Mix your drugs with these household products, seal them in an airtight container andthrow it into the garbage. Call [facility]: [phone] to be sure your drugs can be disposed of in this way. Some medicines may require a different approach.4.Never flush your medications down the toilet. IF YOU HAVE BEEN PRESCRIBED AN OPIOID FOR PAIN If you have been prescribed an opioid (such as hydrocodone, oxycodone or morphine), it is critical to understand the possible side effects and risks of opioid pain medications. Even when taken as directed, opioids can have several side effects including: Tolerance, meaning you might need to take more of a medication for the same pain relief. Nausea, vomiting and/or constipation. Sleepiness, dizziness, dry mouth, confusion, depression or itching. Physical dependence, meaning you have withdrawal symptoms when a medication is stopped, can develop within a few days. KNOW YOUR RESPONSIBILITIES It is important to know exactly how much and how often to take the opioid pain medications you are prescribed. Never take opioids in higher amounts or more often than prescribed. Do not combine opioids with alcohol or other drugs that cause drowsiness, such as benzodiazepines, also known as benzos, including diazepam and alprazolam, muscle relaxants or sleep aids. Never sell or share prescription opioids. This is illegal. Store opioids in a secure place and out of reach of others (including children, family, friends and visitors). The last page of this document has been signed and retained as a CHART COPY. Signatures Patient Education Materials Moderate Conscious Sedation, Adult, Care After 3- Cardioversion (04/2018)(CUSTOM) Medication Leaflets My discharge plan and instructions have been reviewed and explained to me and I,JADON ALVAREZ understand my current condition and have read and understand these discharge instructions. I have received a written copy of the plan/instructions. If I have questions, I am aware that I should contact my doctor. 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 Patient location: PACU. Assessment Postanesthesia assessment Vitals: Vital signs from flowsheet : Vital Signs 01/26/2023 10:23 EDT Heart Rate Monitored 76 bpm Respiratory Rate 18 br/min Systolic Blood Pressure Non-Invasive 179 mmHg HI Diastolic Blood Pressure Non-Invasive 93 mmHg HI Reason For Taking VItal Signs Procedure post-care 01/26/2023 10:10 EDT Heart Rate Monitored 67 bpm Respiratory Rate 18 br/min Systolic Blood Pressure Non-Invasive 153 mmHg HI Diastolic Blood Pressure Non-Invasive 93 mmHg HI 01/26/2023 10:08 EDT Temperature Temporal Artery 36.0 DegC Heart Rate Monitored 66 bpm Respiratory Rate 18 br/min Systolic Blood Pressure Non-Invasive 192 mmHg HI Diastolic Blood Pressure Non-Invasive 102 mmHg >HHI 01/26/2023 10:06 EDT Systolic Blood Pressure Non-Invasive 192 mmHg mmHg Diastolic Blood Pressure Non-Invasive 102 mmHg mmHg 01/26/2023 10:05 EDT Heart Rate Monitored 65 bpm bpm Respiratory Rate - Anes 0 br/min br/min 01/26/2023 10:04 EDT Systolic Blood Pressure Non-Invasive 205 mmHg mmHg Diastolic Blood Pressure Non-Invasive 116 mmHg mmHg 01/26/2023 10:01 EDT Systolic Blood Pressure Non-Invasive 168 mmHg mmHg Diastolic Blood Pressure Non-Invasive 113 mmHg mmHg 01/26/2023 10:00 EDT Heart Rate Monitored 104 bpm bpm Respiratory Rate - Anes 0 br/min br/min 01/26/2023 9:58 EDT Systolic Blood Pressure Non-Invasive 196 mmHg mmHg Diastolic Blood Pressure Non-Invasive 106 mmHg mmHg 01/26/2023 9:55 EDT Heart Rate Monitored 71 bpm bpm Respiratory Rate - Anes 0 br/min br/min Systolic Blood Pressure Non-Invasive 199 mmHg mmHg Diastolic Blood Pressure Non-Invasive 92 mmHg mmHg 01/26/2023 9:52 EDT Systolic Blood Pressure Non-Invasive 203 mmHg mmHg Diastolic Blood Pressure Non-Invasive 169 mmHg mmHg 01/26/2023 7:19 EDT Temperature Temporal Artery 36.5 DegC Peripheral Pulse Rate 90 bpm Respiratory Rate 20 br/min Systolic Blood Pressure Non-Invasive 147 mmHg HI Diastolic Blood Pressure Non-Invasive 83 mmHg , Oxygen Therapy : Oxygen Therapy & Oxygenation Information 01/26/2023 10:23 EDT Oxygen Therapy Room air Oxygen Flow Rate 0 01/26/2023 10:10 EDT Oxygen Therapy Room air Oxygen Flow Rate 0 01/26/2023 10:08 EDT Oxygen Therapy Room air Oxygen Saturation 97 % Oxygen Flow Rate 0 01/26/2023 10:05 EDT Oxygen Saturation 97 % % 01/26/2023 10:00 EDT Oxygen Saturation 99 % % 01/26/2023 9:55 EDT Oxygen Saturation 99 % % 01/26/2023 7:19 EDT Oxygen Saturation 95 % . Mental status: at preoperative baseline. Respiratory function: respirations are non-labored, Stable. Respiratory support: none. CV function: Stable. Cardiovascular support: none. Pain: Satisfactory. Nausea status: Satisfactory. Postoperative hydration status: within normal limits. Notes: Patient is sufficiently recovered from anesthesia to participate in the evaluation. No follow-up care needed. No complications post-anesthesia.. Digitally Signed by WINSOME LEDBETTER MD on 01/26/2023 10:33 AM [id number] Discharge summary Date of Service January 26, 2023 Discharge Diagnosis Diabetes mellitus type 2 (E11.9 - ICD-10-CM) Ordered: atorvastatin; Start: 01/26/23 22:00:00 EDT, Dose = 20 mg, = 1 tab(s), Oral, qDay, 01/26/23 10:11:00 EDT Additional Orders: Ordered: Cardizem CD 180 mg/24 hours oral capsule, extended release,Start: 01/26/23 10:11:00 EDT, Dose = 180 mg, = 1 cap(s), Oral, qDay, 01/26/23 10:11:00 EDT Ordered: Diet Order,01/26/23 12:10:00 EDT, Start Meal: Now, Regular, Start diet when patient tolerating sips of water without nausea, Constant Order, : N/A, : N/A Ordered: Discharge,01/26/23 10:10:00 EDT, Discharged to: Home Ordered: Discharge Activity,Follow the post-operative/post-procedure activity instructions providedby your physician's office., 01/26/23 10:10:00 EDT Ordered: Discharge Diet,Follow the post-operative/post-procedure diet instructions provided by yourphysician's office., 01/26/23 10:10:00 EDT Ordered: Discharge Driving Restrictions,* Other, specify in special instructions, no driving for today, 01/26/23 10:10:00 EDT Ordered: Discharge Wound Care,Follow the post-operative/post-procedure wound care instructions provided by your physician's office., 01/26/23 10:10:00 EDT Ordered: Discontinue Order,01/26/23 10:10:00 EDT, Once, Discontinue IV prior to discharge, 01/26/2310:10:00 EDT Ordered: Eliquis,Start: 01/26/23 10:11:00 EDT, Dose = 5 mg, = 1 tab(s), Oral, BID, Indication for Use Atrial fibrillation, 01/26/23 10:11:00 EDT Ordered: Feosol,Start: 01/26/23 12:00:00 EDT, Dose = 325 mg, = 1 tab(s), Oral, qDay, 01/26/23 10:11:00 EDT Ordered: Lasix,Start: 01/26/23 10:11:00 EDT, Dose = 40 mg, = 1 tab(s), Oral, qDay, 01/26/23 10:11:00 EDT Ordered: MetFORMIN (Eqv-Glucophage XR),Start: 01/26/23 10:11:00 EDT, Dose = 1,000 mg, = 2 tab(s), Oral, qDay, 01/26/23 10:11:00 EDT Other status: Ozempic 8 mg/3 mL (2 mg dose) subcutaneous solution,Start: 01/26/23 11:00:00 EDT, Dose = 2 mg, Subcutaneous, qWeek, 01/26/23 10:11:00 EDT(Order) Other status: Pen needles 8 mm,Start: 01/26/23 10:11:00 EDT, See Instructions, 01/26/23 10:11:00 EDT(Order) Ordered: Post Procedure Assessment,01/26/23 10:10:00 EDT, Stop Date 01/26/23 10:10:00 EDT, Upon return Same Day and prn Ordered: Tresiba FlexTouch 200 units/mL 3 mL subcutaneous solution,Start: 01/26/23 10:11:00 EDT, Dose = 96 unit(s), = 0.48 mL, Subcutaneous, qDay, 01/26/23 10:11:00 EDT Ordered: Vitamin C,Start: 01/26/23 12:00:00 EDT, Dose = 500 mg, = 1 tab(s), Oral, qDay, 01/26/23 10:11:00 EDT Ordered: amiodarone,Start: 01/26/23 10:11:00 EDT, Dose = 200 mg, = 1 tab(s), Oral, BID, 01/26/23 10:11:00 EDT Ordered: aspirin 81 mg oral delayed release tablet,Start: 01/26/23 10:11:00 EDT, Dose = 81 mg, = 1 tab(s), Oral, Daily, 01/26/23 10:11:00 EDT Other status: budesonide-formoterol 160 mcg-4.5 mcg/inh Inhaler,Start: 01/26/23 10:11:00 EDT, Dose = 2 puff(s), Inhaler, Inhalation, Daily, 01/26/23 10:11:00 EDT(Order) Ordered: carvedilol 25 mg oral tablet,Start: 01/26/23 10:11:00 EDT, Dose = 25 mg, = 1 tab(s), Oral,BID, 01/26/23 10:11:00 EDT End of Orders Hospital Course This is a 67-year-old male who presented today for direct-current cardioversion secondary to recurrence of atrial fibrillation. Patient underwent successful direct-current cardioversion with subsequent zoroastrian of normal sinus rhythm. Patient tolerated the procedure well without significant complication was discharged homein stable condition. Continue current medical therapies. Follow-up as directed. Allergies Nuprin (Unknown) misc non-codified allergy Procedures Direct-current cardioversion Consults No qualifying data available. Objective Vitals and Measurements T: 36.0 C (Temporal Artery) TMIN: 36.0 C (Temporal Artery) TMAX: 36.5 C (Temporal Artery) HR: 66(Monitored) RR: 18 BP: 192/102 SpO2: 97% HT: 182.9 cm WT: 173.2 kg Weight Dosing Weight: 173.2 kg (01/26/23) Code Status No qualifying data available. Admission Date January 26, 2023 Discharge Date January 26, 2023 Patient Instructions No driving for today. Resume your normal activity and diet as tolerated. You may experience some redness or skin irritation where the patches were placed. If desired, you may apply a skin moisturizerto the affected area. Follow-up as directed. Please call the office with any questions, concerns, or new/worsening symptoms. Medications Unchanged amiodarone (amiodarone 200 mg oral tablet)1 tab(s) by mouth two (2) times a day. Refills: 5. apixaban (Eliquis 5 mg oral tablet)1 tab(s) by mouth two (2) times a day. Refills: 1. ascorbic acid (Vitamin C 500 mg oral tablet)1 tab(s) by mouth once a day. aspirin (aspirin 81 mg oral delayed release tablet)1 tab(s) by mouth every day. Refills: 3. atorvastatin (atorvastatin 20 mg oral tablet)1 tab(s) by mouth once a day for 90 Days. fenofibrate is being d/c. Refills: 1. budesonide-formoterol (budesonide-formoterol 160 mcg-4.5 mcg/inh Inhaler)2 puff(s) by inhalation every day for 90 Days. Refills: 1. carvedilol (carvedilol 25 mg oral tablet)1 tab(s) by mouth two (2) times a day for 90 Days. Refills: 3. dilTIAZem (Cardizem CD 180 mg/24 hours oral capsule, extended release)1 cap by mouth once a day. Refills: 5. DME (Pen needles 8 mm)BD UF 8mm 31 G (short)Use to inject insulin once daily. Refills: 11. ferrous sulfate (IRON (ferrous sulfate 325 mg) 65 mg oral tablet)1 tab(s) by mouth once a day. Takewith food.. furosemide (Lasix 40 mg oral tablet)1 tab(s) by mouth once a day. Refills: 3. insulin degludec (Tresiba FlexTouch 200 units/mL 3 mL subcutaneous solution)96 unit(s) Subcutaneousonce a day. rotate injection sites. Refills: 6. metFORMIN (MetFORMIN (Eqv-Glucophage XR) 500 mg oral tablet, EXTENDED RELEASE)2 tab(s) by mouth once a day for 90 Days. Okay to fill generic metformin ER nonosmotic. Refills: 1. semaglutide (Ozempic 8 mg/3 mL (2 mg dose) subcutaneous solution)2 Milligram Subcutaneous every week. in the abdomen, thigh, or upper arm. Refills: 11. Follow Up Appointments No qualifying data available. Follow Up Labs/Studies Discharge Labs No Follow-up Labs Discharge Studies No Follow-up Studies Discharge Diet Discharge Diet - Ordered -- Follow the post-operative/post-procedure diet instructions provided by your physician's office.,01/26/23 10:10:00 EDT Discharge Activity Discharge Activity - Ordered -- Follow the post-operative/post-procedure activity instructions provided by your physician's office., 01/26/23 10:10:00 EDT Condition on Discharge Stable Readmission Risk/Palliative Score No qualifying data available. Discharge Disposition Home Information Provided To Patient Digitally Signed by OLIVE HOLLAND on 01/26/2023 10:13 AM [facility] [id number] Procedure note Date of Service January 26, 2023 Procedure performed collaboratively with Dr. Colby Procedure Name Direct-current cardioversion Referring Provider Gavino Ag APRN CNP Consent Informed consent obtained from nursing staff/anesthesia personnel. Patient has been educated about the risks, benefits, and alternatives of this procedure prior to obtaining consent. Indication Atrial fibrillation Location CVOR Technique This is a 67 year old male who presents today for direct current cardioversion secondary to recurrence of atrial fibrillation. Patient verbalized confirmation that he has been on uninterrupted oral anticoagulation with Eliquis for a minimum of 3 weeks prior to procedure. Patient is on antiarrhythmic therapy with amiodarone 200 mg twice daily as well as rate control therapy with diltiazem extended release 180mg/24 hours once daily + carvedilol 25 mg twice daily. Anticoagulated with Eliquis 5mg twice daily. Patient presented in a fasting, well-hydrated state. Presenting rhythm was atrial fibrillation at aheart rate of 87 bpm. Once a HYSTER MACHINE OPERATOR administered an IV anesthetic agent and the patient was fully sedated, an anterior-posterior patch placement was utilized to deliver a synchronized biphasic waveform at 100 J with anterior direct pressure which resulted in the initial return of atrial fibrillation followed by the restora tion of normal sinus rhythm at a heart rate of 75 bpm. The patient tolerated the procedure well and returned to cardiac same-day in stable condition. Digitally Signed by OLIVE HOLLAND on 01/26/2023 10:10 AM [facility] [id number] Anesthesiology Consult note Patient: JADON ALVAREZ Age: 67 years Sex: Male : 1955 Associated Diagnoses: None Author: WINSOME LEDBETTER MD Preoperative Information Greater than 8 hours for solids Anesthesia history Patient's history: negative. Family's history: negative. History of Present Illness The patient presents for preanesthesia evaluation with need for Cardioversion. . Review of Systems Ear/Nose/Mouth/Throat: Negative except as documented in history of present illness. Respiratory: Shortness of breath. Cardiovascular: Palpitations. Gastrointestinal: Negative except as documented in history of present illness. Genitourinary: Negative except as documented in history of present illness. Endocrine: Negative. Musculoskeletal: Negative. Integumentary: Negative. Neurologic: Negative. Health Status Allergies: Allergic Reactions (Selected) Severity Not Documented [facility] [place] non-codified allergy- No reactions were documented. Nuprin- Unknown., Allergies (2) ActiveReaction [facility] non-codified allergyNone Documented NuprinUnknown Current medications: (Selected) Inpatient Medications Ordered Sodium Chloride 0.9% intravenous solution 1,000 mL: 20 mL/hr, Intravenous Prescriptions Prescribed Cardizem CD 180 mg/24 hours oral capsule, extended release: 180 mg, 1 cap(s), Oral, qDay, 30 cap(s), 5 Refill(s) Eliquis 5 mg oral tablet: 5 mg, 1 tab(s), Oral, BID, 180 tab(s), 1 Refill(s) Lasix 40 mg oral tablet: 40 mg, 1 tab(s), Oral, qDay, 30 tab(s), 3 Refill(s) MetFORMIN (Eqv-Glucophage XR) 500 mg oral tablet, EXTENDED RELEASE: 1,000 mg, 2 tab(s), Oral, qDay,for 90 day(s), Okay to fill generic metformin ER nonosmotic, 180 tab(s), 1 Refill(s) Ozempic 8 mg/3 mL (2 mg dose) subcutaneous solution: 2 mg, Subcutaneous, qWeek, in the abdomen, thigh, or upper arm, 3 mL, 11 Refill(s) Pen needles 8 mm: See Instructions, BD UF 8mm 31 G (short)Use to inject insulin once daily, 1 EA, 11 Refill(s) Tresiba FlexTouch 200 units/mL 3 mL subcutaneous solution: 96 unit(s), Subcutaneous, qDay, rotate injection sites, 18 mL, 6 Refill(s) amiodarone 200 mg oral tablet: 200 mg, 1 tab(s), Oral, BID, 60 tab(s), 5 Refill(s) aspirin 81 mg oral delayed release tablet: 81 mg, 1 tab(s), Oral, Daily, 90 tab(s), 3 Refill(s) atorvastatin 20 mg oral tablet: 20 mg, 1 tab(s), Oral, qDay, for 90 day(s), fenofibrate is being d/c, 90 tab(s), 1 Refill(s) budesonide-formoterol 160 mcg-4.5 mcg/inh Inhaler: 2 puff(s), Inhalation, Daily, for 90 day(s), 3 EA, 1 Refill(s) carvedilol 25 mg oral tablet: 25 mg, 1 tab(s), Oral, BID, for 90 day(s), 180 tab(s), 3 Refill(s) Documented Medications Documented IRON (ferrous sulfate 325 mg) 65 mg oral tablet: 325 mg, 1 tab(s), Oral, qDay, Take with food., 60 tab(s), 3 Refill(s) Vitamin C 500 mg oral tablet: 500 mg, 1 tab(s), Oral, qDay, 30 tab(s), 0 Refill(s), Medications (1) Active Scheduled: (0) Continuous: (1) NS (0.9% nacl) 1,000 mL 1,000 mL, Intravenous, 20 mL/hr PRN: (0) Problem list: Medical Left breast abscess / SNOMED CT 98098257 / Confirmed AORTIC VALVE DISEASE / SNOMED CT 45707551 / Confirmed Atrial flutter / SNOMED CT 9250094 / Confirmed CKD stage 3 due to type 2 diabetes mellitus / SNOMED CT 0219015990 / Confirmed 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 2 diabetes mellitus / SNOMED CT 8184625143 / Confirmed Diabetes mellitus type 2 / SNOMED CT 364693994 / Confirmed SOB (shortness of breath) / SNOMED CT 323154728 / Confirmed Lower extremity edema / SNOMED CT 630602844 / Confirmed Acute embolism and thrombosis of deep vein of left distal leg / SNOMED CT 6860972731 / Confirmed Inclusion cyst / SNOMED CT 5557075903 / Confirmed Heart failure / SNOMED CT 941586881 / Confirmed Heart murmur / SNOMED CT 927898060 / Confirmed Heart valve disorder / SNOMED CT 8831100 / Confirmed High blood pressure / SNOMED CT 92889054 / Confirmed Right hip pain / SNOMED CT 52048988 / Confirmed S/P AVR (aortic valve replacement) / SNOMED CT 9020516721 / Confirmed Intraventricular conduction delay / SNOMED CT 4167843 / Confirmed Enlarged prostate / SNOMED CT 908079677 / Confirmed Normocytic anemia / SNOMED CT 811832138 / Confirmed Obesity / SNOMED CT 7929315235 / Confirmed Incarcerated femoral hernia / SNOMED CT 570701043 / Confirmed Recurrent right inguinal hernia / SNOMED CT 6591280984 / Confirmed Renal mass. Left, 6.6-cm, LP, posterior. *MMP-morbid obesity, CKD, DM, HTN, CHF, DVT/PE. *BT-Coumadin, ASA. 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 Left, 6.6-cm, LP, posterior. *MMP-morbid obesity, CKD, DM, HTN, CHF, DVT/PE. *BT-[place]ou[place] Right hip pain S/P AVR (aortic valve replacement) SOB (shortness of breath) Histories Past Medical History: Active High blood pressure (27679921) Heart failure (717837402) Enlarged prostate (518457046) Diabetes mellitus type 2 (581303853) Apnea, sleep (569419374) Incarcerated femoral hernia (208788489) Obesity (6033368240) Heart valve disorder (1840563) Comments: 11/02/2017 EDT 8:56 EDT - QUIN Alanis PRIVATE INVESTIGATOR SURVEILLANCE Resolved Bowel infarction (0698409): Resolved. Family History: Diabetes mellitus Mother Cancer Brother Renal cancer Brother Sleep apnea Sister Procedure history: Aortic valve (15440068). Comments: 11/02/2017 8:37 EDT - QUIN ALANIS pig valve Colectomy ([id number]). IVC - Insertion of inferior vena caval filter ([id number]). IVC - Removal of inferior vena caval filter ([id number]). Repair of inguinal hernia ([id number]). Comments: 02/28/2021 11:24 EDT - Anabela Gonzales RN Right x3 Bladder ([id number]). Social History Social & Psychosocial Habits Alcohol 11/02/2017Risk Assessment: Denies Alcohol Use 02/09/2019 Use: Never Substance Abuse 11/02/2017Risk Assessment: Denies Substance Abuse 02/09/2019 Use: Never Tobacco 02/28/2021 Tobacco Use: Former smoker, quit more Type: Cigarettes Number of years: 30 Stopped at age: 45 Years Home/Environment 02/28/2021 Domestic Concerns None Living situation: Home/Independent Primary Supervisor Cabinetmaker: Self Current Home Treatments CPAP, Oxygen therapy Special Services and Community Resources None Nutrition/Health 01/08/2023 Type of diet: Regular Appetite Good Eating Difficulties None Caffeine intake amount: coffee once a week . Physical Examination Vital Signs 01/26/2023 7:19 EDT Temperature Temporal Artery 36.5 DegC Peripheral Pulse Rate 90 bpm Respiratory Rate 20 br/min Systolic Blood Pressure Non-Invasive 147 mmHg HI Diastolic Blood Pressure Non-Invasive 83 mmHg Vital Signs(last 24 hrs) Last Charted Resp Rate 20 br/min (JAN 26 07:19) SBPH 147mmHg (JAN 26 07:19) DBP83 mmHg (JAN 26 07:19) Measurements from flowsheet : Measurements 01/26/2023 7:19 EDT Height 182.9 cm Height in inches 72 inch(es) Admission Weight 173.2 kg Weight Lbs 381 lb [place] Body Weight 77.62 kg Admission Body Mass Index 51.78 m2 General: Alert and oriented. Airway: Normal temporomandibular joint mobility, Normal mouth, Normal throat, Normal neck range of motion, Trachea midline. Mallampati classification: IV (hard palate only). Dentition Evaluation Neck: Full range of motion. Respiratory: Lungs are clear to auscultation, Breath sounds are equal. Cardiovascular: Normal rate, Regular rhythm, No murmur. Heart Sounds: Normal. Neurologic: Alert, Oriented. Review / Management Results review: Labs (Last four charted values) WBC 6.7(JAN 26) Hgb 13.6(JAN 26) Hct 41.0(JAN 26) Plt L 135(JAN 26) Na 141(JAN 26) K 4.6(JAN 26) CO2 28(JAN 26) Cl 106(JAN 26) Cr 1.26(JAN 26) BUN H 28.0(JAN 26) Glucose H 165(JAN 26) Ca 9.0(JAN 26) PT 13.8(JAN 26) INR 1.2(JAN 26) . Documentation reviewed: Current records. Assessment and Plan [place] [employer] Anesthesiologists (ASA) physical status classification: Class IV. Anesthetic Preoperative Plan Premedication: intravenous. Anesthetic technique: MAC. Induction: intravenously. Maintenance airway: Mask. Special techniques. Special Monitoring. Postoperative pain management: Per surgeon. Risks discussed. Informed consent: signed by patient. Beta Maren Digitally Signed by WINSOME LEDBETTER MD on 01/26/2023 09:55 [id number] Discharge instructions Patient Education 01/04/2023 09:01:05 Wound Care Wound Care Taking proper care of your wound will help it heal. Your healthcare provider may show you how to clean and dress the wound. He or she will also explain how to tell if the wound is healing normally. If you are unsure of how to take care of the wound, be sure to clarify what dressing to use and how often you should change the bandages. Here are the basic steps. A wound that's not healing normally may be dark in color or have white streaks. Wash your hands Tips for washing your hands include: Use liquid soap and lather for 2 minutes. Scrub between your fingers and under your nails. Rinse with warm water, keeping your fingers pointing down. Use a paper towel to dry your hands and to turn off the faucet. Remove the used dressing Here are suggestions for removing the dressing: If dressing changes cause you pain, be sure to take your pain medicine as prescribed by your healthcare provider 30 minutes before dressing changes. Set up your supplies. Put on disposable gloves if you re dressing a wound for someone else or your wound is infected. Loosen the tape by pulling gently toward the wound. Gently take off the old dressing. If the dressing is stuck to the wound, moisten it with saline (ifavailable) or clean water. If you have a drain or tube in the wound, be careful not to pull on it. Remove the dressing 1 layer at a time and put it in a plastic bag. Seal the bag and put it in the trash. Remove your gloves. Inspect and dress the wound Check the wound carefully: Each time you change the dressing, check the wound carefully to be sure it s healing normally by making sure your wound appears to be pink and moist, and is free of infection. Wash your hands again. Put on a new pair of gloves. Clean and dress the wound as directed by your healthcare provider or nurse. Don't put anything in the wound that is not prescribed or directed by your healthcare provider. If you have a drain or tube, be careful not to pull on it. Make sure to secure the drain or tube as well. Put all unused supplies in a clean plastic bag. Seal the bag and store it in a clean, dry area between dressing changes. Be sure to wash your hands again. Call your healthcare provider Call your healthcare provider if you see any of the following signs of a problem: Bleeding that soaks the dressing [place] fluid weeping from the wound Increased drainage or drainage that is yellow, yellow-green, or foul-smelling Increased swelling or pain, or redness or swelling in the skin around the wound A change in the color of the wound, or if streaks develop in a direction away from the wound The area between any stitches opens up An increase in the size of the wound A fever of 100.4 F (38 C) or higher, or as directed by your healthcare provider Chills, increased fatigue, or a loss of appetite [id number] [employer]. [address] [place] [address], [place] [address]. All rights reserved. This information is not intended as a substitute for professional medical care. Always follow yourhealthcare professional's instructions. Follow Up Care 01/04/2023 08:12:33 With:KELLIE BENITES APRN-G[facility]OVER Address: [address] [place] [phone] When:2-4 days With:Go to emergency room if symptoms worsen Address:Unknown When:2-4 days [facility] 06-26-2023 Note Discharge Instructions Thank you for allowing [facility] to assist you with your healthcare needs. The following is importantdischarge information regarding your hospital visit. Diagnosis from Today's Visit Open wound of lower leg Puncture wound of lower limb What to Do Next Instructions from Your Care Team Cleanse with very mild soap and water twice daily. Allowed to dry then apply thin film of bacitracin ointment. No qualifying data available. Post Acute Orders No qualifying data available. You Need to Schedule the Following Appointments Follow Up with KELLIE BENITES When Within 2-4 days Where: [address] [facility] [place] [phone] Follow Up with Go to emergency room if symptoms worsen When Within 2-4 days Allergies Nuprin (Unknown) misc non-codified allergy Immunizations This Visit Given Vaccine Datetetanus/diphth/pertuss (Tdap) adult/adol 01/04/2023 Medications Please ask your primary doctor or pharmacist before taking any other medication not listed, including over the counter drugs, herbal medications, vitamins and or supplements as they may interact withyour home medications. What How Much When Why Instructions Last Dose New cephalexin (cephalexin 500 mg oral tablet) 1 tab(s) by mouth Four (4) times a day Open wound of lower leg Duration: 7 Days Printed Prescription New sulfamethoxazole-trimethoprim (Bactrim DS 800 mg-160 mg oral tablet) 1 tab(s) by mouth Two (2) times a day Open wound of lower leg Duration: 7 Days Printed Prescription Unchanged amiodarone (amiodarone 200 mg oral tablet) 1 tab(s) by mouth Two (2) times a day Unchanged amLODIPine (amLODIPine 5 mg oral tablet) 1 tab(s) by mouth Once a day Duration: 90 Days Unchanged apixaban (Eliquis 5 mg oral tablet) 1 tab(s) by mouth Two (2) times a day Unchanged ascorbic acid (Vitamin C 500 mg oral tablet) 1 tab(s) by mouth Once a day Unchanged aspirin (aspirin 81 mg oral delayed release tablet) 1 tab(s) by mouth Every day Unchanged atorvastatin (atorvastatin 20 mg oral tablet) 1 tab(s) by mouth Once a day Diabetes mellitus type 2 Duration: 90 Days fenofibrate is being d/ c Unchanged budesonide-formoterol (budesonide-formoterol 160 mcg-4.5 mcg/ inh Inhaler) 2 puff(s) by inhalation Every day Duration: 90 Days Unchanged carvedilol (carvedilol 25 mg oral tablet) 1 tab(s) by mouth Two (2) times a day Duration: 90 Days Unchanged DME (Pen needles 8 mm) See instructions BD UF 8mm 31 G (short)Use to inject insulin once daily Unchanged ferrous sulfate (IRON (ferrous sulfate 325 mg) 65 mg oral tablet) 1 tab(s) by mouth Once a day Take with food. Unchanged furosemide (Lasix 40 mg oral tablet) 1 tab(s) by mouth Once a day Unchanged insulin degludec (Tresiba FlexTouch 200 units/ mL 3 mL subcutaneous solution) 94 unit(s) Subcutaneous Once a day rotate injection sites Unchanged metFORMIN (MetFORMIN (Eqv-Glucophage XR) 500 mg oral tablet, EXTENDED RELEASE) 2 tab(s) by mouth Once a day Duration: 90 Days Okay to fill generic metformin ER nonosmotic Unchanged semaglutide (Ozempic (1 mg dose) 4 mg/ 3 mL subcutaneous solution) 1 Milligram Subcutaneous Every week Duration: 4 week(s) Please take this list to your next doctor s visit. Bring all medications you take, including over the counter medications, herbals and other supplements with you to your doctor s visit. Patients and families are reminded to discard old lists and to update any records with all medication providers or retail pharmacies. Medication Leaflets cephalexin (sef a SHARITA in) Keflex What is the most important information I should know about cephalexin? You should not use this medicine if you are allergic to cephalexin or to similar antibiotics, such as Ceftin, Cefzil, Omnicef, and others. Tell your doctor if you are allergic to any drugs, especially penicillins or other antibiotics. What is cephalexin? Cephalexin is a cephalosporin (SEF a low spor in) antibiotic that is used to treat bacterial infections of the lungs, ear, skin, bones, bladder, and kidneys. Cephalexin is used to treat infections in adults and children who are at least 1 year old. Cephalexin may also be used for purposes not listed in this medication guide. What should I discuss with my healthcare provider before taking cephalexin? You should not use this medicine if you are allergic to cephalexin or any other cephalosporin antibiotic (cefdinir, cefadroxil, cefoxitin, cefprozil, ceftriaxone, cefuroxime, Omnicef, and others). Tell your doctor if you have ever had: an allergy to any drug (especially penicillin); liver or kidney disease; or intestinal problems, such as colitis. The liquid form of cephalexin may contain sugar. This may affect you if you have diabetes. Tell your doctor if you are or breast-feeding. How should I take cephalexin? Follow all directions on your prescription label and read all medication guides or instruction sheets. Use the medicine exactly as directed. Do not use cephalexin to treat any condition that has not been checked by your doctor. Measure liquid medicine carefully. Use the dosing syringe provided, or use a medicine dose-measuring device (not a kitchen spoon). Use this medicine for the full prescribed length of time, even if your symptoms quickly improve. Skipping doses can increase your risk of infection that is resistant to medication. Cephalexin will not treat a viral infection such as the flu or a common cold. Do not share cephalexin with another person, even if they have the same symptoms you have. This medicine can affect the results of certain medical tests. Tell any doctor who treats you that you are using cephalexin. Store the tablets and capsules at room temperature away from moisture, heat, and light. Store the liquid medicine in the refrigerator. Throw away any unused liquid after 14 days. What happens if I miss a dose? Take the medicine as soon as you can, but skip the missed dose if it is almost time for your next dose. Do not take two doses at one time. What happens if I overdose? Seek emergency medical attention or call the Poison Help line at . Overdose symptoms may include nausea, vomiting, stomach pain, diarrhea, and blood in your urine. What should I avoid while taking cephalexin? Antibiotic medicines can cause diarrhea, which may be a sign of a new infection. If you have diarrhea that is watery or bloody, call your doctor before using anti-diarrhea medicine. What are the possible side effects of cephalexin? Get emergency medical help if you have signs of an allergic reaction (hives, difficult breathing, swelling in your face or throat) or a severe skin reaction (fever, sore throat, burning eyes, skin pain, red or purple skin rash with blistering and peeling). Call your doctor at once if you have: severe stomach pain, diarrhea that is watery or bloody (even if it occurs months after your last dose); unusual tiredness, feeling light-headed or short of breath; easy bruising, unusual bleeding, purple or red spots under your skin; a seizure; pale skin, cold hands and feet; yellowed skin, dark colored urine; fever, weakness; or pain in your side or lower back, painful urination. Common side effects may include: diarrhea; nausea, vomiting; indigestion, stomach pain; or vaginal itching or discharge. This is not a complete list of side effects and others may occur. Call your doctor for medical advice about side effects. You may report side effects to FDA at 2-053-MHI-2831. What other drugs will affect cephalexin? Tell your doctor about all your other medicines, especially: metformin; or probenecid. This list is not complete. Other drugs may affect cephalexin, including prescription and vird-usk-dcsxfux medicines, vitamins, and herbal products. Not all possible drug interactions are listed here. Where can I get more information? Your pharmacist can provide more information about cephalexin. Remember, keep this and all other medicines out of the reach of children, never share your medicines with others, and use this medication only for the indication prescribed. Every effort has been made to ensure that the information provided by [employer]. [employer]') is accurate, up-to-date, and complete, but no guarantee is made to that effect. Drug information contained herein may be time sensitive. [employer] information has been compiled for use by healthcare practitioners and consumers in the [place] and therefore [employer] does not warrant that uses outside of the [place] are appropriate, unless specifically indicated otherwise. [facility] drug information does not endorse drugs, diagnose patients or recommend therapy. [facility] drug information isan informational resource designed to assist licensed healthcare practitioners in caring for their p atients and/or to serve consumers viewing this service as a supplement to, and not a substitute for, the expertise, skill, knowledge and judgment of healthcare practitioners. The absence of a warningfor a given drug or drug combination in no way should be construed to indicate that the drug or drug combination is safe, effective or appropriate for any given patient. [facility] does not assume any responsibility for any aspect of healthcare administered with the aid of information [facility] provides. The information contained herein is not intended to cover all possible uses, directions, precautions, warnings, drug interactions, allergic reactions, or adverse effects. If you have questions about the drugs you are taking, check with your doctor, nurse or pharmacist. Copyright 1203-4628 [employer]. Version: 10. Revision Date: 07/15/2020. sulfamethoxazole and trimethoprim (oral/injection) (SUL fa meth OX a zole and trye METH oh prim) Bactrim, Bactrim DS, SMZ-TMP DS, Sulfatrim Pediatric What is the most important information I should know about sulfamethoxazole and trimethoprim? Use only as directed. Tell your doctor if you use other medicines or have other medical conditions or allergies. What is sulfamethoxazole and trimethoprim? Sulfamethoxazole and trimethoprim is a combination antibiotic used to treat ear infections, urinarytract infections, bronchitis, traveler's diarrhea, shigellosis, and Pneumocystis jiroveci pneumonia. Sulfamethoxazole and trimethoprim may also be used for purposes not listed in this medication guide. What should I discuss with my healthcare provider before using sulfamethoxazole and trimethoprim? You should not use this medicine if you are allergic to sulfamethoxazole or trimethoprim, or if youhave: severe liver disease; kidney disease that is not being treated or monitored; anemia (low red blood cells) caused by folic acid deficiency; a history of low blood platelets after taking trimethoprim or any sulfa drug; or if you take dofetilide. May cause defects. Do not use if you are . Tell your doctor if you become . Do not breastfeed. This medicine should not be given to a child younger than 2 months old. Tell your doctor if you have ever had: kidney or liver disease; a folate (folic acid) deficiency; asthma or severe allergies; HIV or AIDS; a thyroid disorder; malnourishment; alcoholism; an electrolyte imbalance (such as low blood sodium or high potassium); porphyria, or ghsbnke-1-pxshgwmsd dehydrogenase (G6PD) deficiency; or if you use a blood thinner (such as warfarin) and you have routine 'INR' or prothrombin time tests. How should I use sulfamethoxazole and trimethoprim? Follow all directions on your prescription label and read all medication guides or instruction sheets. Use the medicine exactly as directed. Sulfamethoxazole and trimethoprim oral is taken by mouth. Shake the oral suspension (liquid). Measure a dose with the supplied measuring device (not a kitchen spoon). Sulfamethoxazole and trimethoprim injection is given in a vein. Be sure you understand how to properly mix this medicine with a liquid (diluent) and how to store the mixture. Ask your doctor or pharmacist if you don't understand how to use an injection. Prepare an injection only when you are ready to give it. Call your pharmacist if the medicine lookscloudy, has changed colors, or has particles in it. Mixed medicine must be used within 2 to 6 hours depending on the amount of diluent in the mixture. Follow your doctor's instructions. Do not refrigerate mixed medicine. Do not reuse a needle or syringe. Place them in a puncture-proof 'sharps' container and dispose of it following state or local laws. Keep out of the reach of children and pets. Drink plenty of fluids to prevent kidney stones. Antibiotic medicines can cause diarrhea. Tell your doctor if you have diarrhea that is watery or bloody. Keep using this medicine even if your symptoms quickly improve. Skipping doses could make your infection resistant to medication. Sulfamethoxazole and trimethoprim will not treat a viral infection (flu or a common cold). You may need blood and urine tests, and this medicine may be stopped based on the results. Store at room temperature away from moisture, heat, and light. Do not refrigerate. What happens if I miss a dose? Use the medicine as soon as you can, but skip the missed dose if it is almost time for your next dose. Do not use two doses at one time. What happens if I overdose? Seek emergency medical attention or call the Poison Help line at . Overdose symptoms may include loss of appetite, vomiting, fever, blood in your urine, yellowing of your skin or eyes, confusion, or loss of consciousness. What should I avoid while using sulfamethoxazole and trimethoprim? If you use the injection form of this medicine, do not eat or drink anything that contains propylene glycol (an ingredient in many processed foods, soft drinks, and medicines). Dangerous effects could occur. Sulfamethoxazole and trimethoprim could make you sunburn more easily. Avoid sunlight or tanning beds. Wear protective clothing and use sunscreen (SPF 30 or higher) when you are outdoors. What are the possible side effects of sulfamethoxazole and trimethoprim? Get emergency medical help if you have signs of an allergic reaction (hives, cough, chest pain, shortness of breath, swelling in your face or throat) or a severe skin reaction (fever, sore throat, burning eyes, skin pain, red or purple skin rash with blistering and peeling). Seek medical treatment if you have a serious drug reaction that can affect many parts of your body.Symptoms may include: skin rash, fever, swollen glands, joint pain, muscle aches, severe weakness, pale skin, unusual bruising, or yellowing of your skin or eyes. Call your doctor at once if you have: severe stomach pain, diarrhea that is watery or bloody (even if it occurs months after your last dose); any skin rash, no matter how mild; yellowing of your skin or eyes; a seizure; new or unusual joint pain; increased or decreased urination; swelling, bruising, or irritation around the IV needle; increased thirst, dry mouth, fruity breath odor; new or worsening cough, fever, trouble breathing; high blood potassium--nausea, weakness, tingly feeling, chest pain, irregular heartbeats, loss of movement; low blood sodium--headache, confusion, problems with thinking or memory, weakness, feeling unsteady; or low blood cell counts--fever, chills, mouth sores, skin sores, easy bruising, unusual bleeding, pale skin, cold hands and feet, feeling light-headed or short of breath. Common side effects may include: nausea, vomiting, loss of appetite; or skin rash. This is not a complete list of side effects and others may occur. Call your doctor for medical advice about side effects. You may report side effects to FDA at 9-365-DEU-7235. What other drugs will affect sulfamethoxazole and trimethoprim? You may need more frequent check-ups or medical tests if you also use medicine to treat depression,diabetes, seizures, or HIV. Tell your doctor about all your current medicines. Many drugs can affect sulfamethoxazole and trimethoprim, especially: amantadine, digoxin, cyclosporine, indomethacin, leucovorin, methotrexate, procainamide, pyrimethamine; an 'BRITTANY inhibitor' heart or blood presure medication (benazepril, enalapril, lisinopril, quinapril,ramipril, and others); or a diuretic or 'water pill'. This list is not complete and many other drugs may affect sulfamethoxazole and trimethoprim. This includes prescription and lray-wcv-vqwxcqr medicines, vitamins, and herbal products. Not all possibledrug interactions are listed here. Where can I get more information? Your pharmacist can provide more information about sulfamethoxazole and trimethoprim. Remember, keep this and all other medicines out of the reach of children, never share your medicines with others, and use this medication only for the indication prescribed. Every effort has been made to ensure that the information provided by [employer]. ('[employer]') is accurate, up-to-date, and complete, but no guarantee is made to that effect. Drug information contained herein may be time sensitive. [employer] information has been compiled for use by healthcare practitioners and consumers in the [place] and therefore [employer] does not warrant that uses outside of the [place] are appropriate, unless specifically indicated otherwise. [employer] drug information does not endorse drugs, diagnose patients or recommend therapy. [employer] drug information isan informational resource designed to assist licensed healthcare practitioners in caring for their p atients and/or to serve consumers viewing this service as a supplement to, and not a substitute for, the expertise, skill, knowledge and judgment of healthcare practitioners. The absence of a warningfor a given drug or drug combination in no way should be construed to indicate that the drug or drug combination is safe, effective or appropriate for any given patient. [employer] does not assume any responsibility for any aspect of healthcare administered with the aid of information [employer] provides. The information contained herein is not intended to cover all possible uses, directions, precautions, warnings, drug interactions, allergic reactions, or adverse effects. If you have questions about the drugs you are taking, check with your doctor, nurse or pharmacist. Copyright 1790-3689 [employer]. Version: 11.. Revision Date: 03/10/2021. Education Materials Wound Care Taking proper care of your wound will help it heal. Your healthcare provider may show you how to clean and dress the wound. He or she will also explain how to tell if the wound is healing normally. If you are unsure of how to take care of the wound, be sure to clarify what dressing to use and how often you should change the bandages. Here are the basic steps. A wound that's not healing normally may be dark in color or have white streaks. Wash your hands Tips for washing your hands include: Use liquid soap and lather for 2 minutes. Scrub between your fingers and under your nails. Rinse with warm water, keeping your fingers pointing down. Use a paper towel to dry your hands and to turn off the faucet. Remove the used dressing Here are suggestions for removing the dressing: If dressing changes cause you pain, be sure to take your pain medicine as prescribed by your healthcare provider 30 minutes before dressing changes. Set up your supplies. Put on disposable gloves if you re dressing a wound for someone else or your wound is infected. Loosen the tape by pulling gently toward the wound. Gently take off the old dressing. If the dressing is stuck to the wound, moisten it with saline (ifavailable) or clean water. If you have a drain or tube in the wound, be careful not to pull on it. Remove the dressing 1 layer at a time and put it in a plastic bag. Seal the bag and put it in the trash. Remove your gloves. Inspect and dress the wound Check the wound carefully: Each time you change the dressing, check the wound carefully to be sure it s healing normally by making sure your wound appears to be pink and moist, and is free of infection. Wash your hands again. Put on a new pair of gloves. Clean and dress the wound as directed by your healthcare provider or nurse. Don't put anything in the wound that is not prescribed or directed by your healthcare provider. If you have a drain or tube, be careful not to pull on it. Make sure to secure the drain or tube as well. Put all unused supplies in a clean plastic bag. Seal the bag and store it in a clean, dry area between dressing changes. Be sure to wash your hands again. Call your healthcare provider Call your healthcare provider if you see any of the following signs of a problem: Bleeding that soaks the dressing [place] fluid weeping from the wound Increased drainage or drainage that is yellow, yellow-green, or foul-smelling Increased swelling or pain, or redness or swelling in the skin around the wound A change in the color of the wound, or if streaks develop in a direction away from the wound The area between any stitches opens up An increase in the size of the wound A fever of 100.4 F (38 C) or higher, or as directed by your healthcare provider Chills, increased fatigue, or a loss of appetite [id number] [employer]. [address] [place] [address]. All rights reserved. This information is not intended as a substitute for professional medical care. Always follow yourhealthcare professional's instructions. Additional Information VACCINATE! IT SAVES LIVES! Members of the community who have not yet received the COVID-19 vaccine and would like to receive it can visit one of [facility] vaccine clinics. There are many vaccine clinic locations within the [facility]. For locations and available times, please visit www.gettheshot.coronavirus.[place].gov/. It is important to note that some COVID mobile vaccine clinics are held outdoors and may be canceled in rainy or stormy conditions. To learn more about pediatric vaccinations (ages 5-11), we invite you to visit the [facility] webpage. https://www.[facility].org/pages/6558-Sjzzp-Wztgvwvhbrg-Ilpgqkooaf-Tqpgd-Cjx stions.htmlTo learn more about the COVID-19 vaccine, we invite you to visit the CDC website for a list of frequently asked questions. https://www.cdc.gov/coronavirus/2019-ncov/vaccines/faq.html [facility] Patient Portal Access Instructions: Stay connected with your healthcare team and access your personal medical information anytime with the [facility] Patient Portal. If you would like a full copy of your medical records please contact the [facility] Medical Records Department Wednesday through Wednesday between 8a.m. and 4:30p.m. Please follow the directions below to access the portal: 1.Access the email account you provided upon registration to the [facility].2.Look for an invitation email from [facility].3.Open the email and access the invitation link: Accept Invitation to [facility]4.Fill in the required breen to create your account. Sign into www.Cape[employer] with your username and password that you created in the above steps to stay up to date. You can then view a summary of results, a summary of your visits, and the ability to download your summaries to your computer or send the information securely to a physician. Remember that your healthcare information is confidential, so carefully consider who you will allow to register on the [facility] Patient Portal for access to your information. You can also access the [facility] Patient Portal on the [employer]. Simply click on Health Records under [employer] and then click on the [employer] logo. HOW TO SAFELY DISPOSE OF PRESCRIPTION MEDICATIONS Please use one of the following methods to safely dispose of your unused medications. 1.Use a drug disposal kit: the drug disposal pouch allows you to safely discard your old and unuseddrugs. Ask your nurse to give you one when you are discharged.2.Visit a local take-back location: Many local pharmacies and police departments have programs that collect old and unwanted prescriptiondrugs. Call your local pharmacy or go to http://Wikidot.Rebit/9N6Ku5x to find one close to you.3.Make use of household items: Use cat litter or old coffee grounds to dispose medications if other options arenot available. Mix your drugs with these household products, seal them in an airtight container andthrow it into the garbage. Call [facility]: [phone] to be sure your drugs can be disposed of in this way. Some medicines may require a different approach.4.Never flush your medications down the toilet. IF YOU HAVE BEEN PRESCRIBED AN OPIOIDS FOR PAIN If you have been prescribed an opioid (such as hydrocodone, oxycodone or morphine), it is critical to understand the possible side effects and risks of opioid pain medications. Even when taken as directed, opioids can have several side effects including: Tolerance, meaning you might need to take more of a medication for the same pain relief. Nausea, vomiting and/or constipation. Sleepiness, dizziness, dry mouth, confusion, depression or itching. Physical dependence, meaning you have withdrawal symptoms when a medication is stopped ? this can develop within a few days. KNOW YOUR RESPONSIBILITIES It is important to know exactly how much and how often to take the opioid pain medications you are prescribed. Never take opioids in higher amounts or more often than prescribed. Do not combine opioids with alcohol or other drugs that cause drowsiness, such as benzodiazepines, also known as benzos,including diazepam and alprazolam, muscle relaxants or sleep aids. Never sell or share prescriptionopioids. This is illegal. Store opioids in a secure place and out of reach of others (including children, family, friends and visitors). The last page(s) of this document has been signed and retained as a CHART COPY Signatures Patient Education Materials Wound Care Medication Leaflets cephalexin, sulfamethoxazole and trimethoprim (oral/injection) My discharge plan and instructions have been reviewed and explained to me and I,JADON ALVAREZ understand my current condition and have read and understand these discharge instructions. I have received a written copy of the plan/instructions. If I have questions, I am aware that I should contact my doctor. 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 COMPARISON: None. HISTORY: ORDERING SYSTEM PROVIDED HISTORY: Reason for Exam: Pain. Patient states stick puncture wound to distal/anterior low leg x1 week ago. FINDINGS: No acute fracture or dislocation. No radiopaque foreign body. No periosteal reaction. Suboptimal view of the knee shows mild degenerative changes consisting of mild tibiofemoral joint space narrowing and tibial spine and patellar osteophytes. Patellar enthesopathy. The tibial plafond and talar dome appear unremarkable. No significant soft tissue edema. No subcutaneous gas. Vascular calcifications. IMPRESSION: No acute osseous abnormality. Degenerative changes. I have personally reviewed the images of this examination and agree with the resident's findings and interpretation. Interpreted by: Santiago Tomlinson MD Preliminary Report By: Siva Holliday Electronically signed By Santiago Tomlinson MD Dictated Date: 01/04/2023 9:09:29 AM Prelim Date: 01/04/2023 9:16:01 AM Sign Date: 01/04/2023 9:33:34 AM Ordering Provider: [facility]06-26-2023 Note ORIGINAL EXAMINATION: 2 XRAY VIEWS OF THE TIBIA AND FIBULA TECHNIQUE: AP and lateral views of the tibia and fibula were obtained. COMPARISON: None. HISTORY: ORDERING SYSTEM PROVIDED HISTORY: Reason for Exam: Pain. Patient states stick puncture wound to distal/anterior low leg x1 week ago. FINDINGS: No acute fracture or dislocation. No radiopaque foreign body. No periosteal reaction. Suboptimal view of the knee shows mild degenerative changes consisting of mild tibiofemoral joint space narrowing and tibial spine and patellar osteophytes. Patellar enthesopathy. The tibial plafond and talar dome appear unremarkable. No significant soft tissue edema. No subcutaneous gas. Vascular calcifications. IMPRESSION: No acute osseous abnormality. Degenerative changes. I have personally reviewed the images of this examination and agree with the resident's findings and interpretation. Interpreted by: Santiago Tomlinson MD Preliminary Report By: Siva Holliday Electronically signed By Santiago Tomlinson MD Dictated Date: 01/04/2023 9:09:29 AM Prelim Date: 01/04/2023 9:16:01 AM Sign Date: 01/04/2023 9:33:34 AM Ordering Provider: [facility]04-15-2022 Hospital Discharge instructions Patient Education 10/24/2021 14:20:40 Radiology- US Renal Biopsy 10/25/2019 (CUSTOM) [place] Renal Biopsy Discharge Instructions CT Department [facility] Services [address] [place] [address] Today, you had a biopsy of your Kidney. This procedure was done to help your doctor diagnose and treat the signs and symptoms you have been experiencing. These instructions should be followed after your procedure to reduce the chance of experiencing complications. Diet: Resume your normal diet as tolerated. Activity: Rest for the remainder of the day. You may resume your normal activity tomorrow. You may bathe/shower after 24 hours. Do not soak or submerge site (including swimming or hot tubs) until a scab forms. No heavy lifting, pushing, or straining. Dressing: Check the site for bleeding. Apply pressure to the site if bleeding excessively and call your physician. Change the band aid as needed; it can be removed after 24 hours. Keep the site dry at all times until a scab forms over the site. Pain Control: The puncture site may be sore for 1 to 2 days following the procedure. Ekrx-czl-urrknnt pain medication should be used for pain or discomfort. Please check with the physician who ordered this procedure for you for their specific recommendations. If your pain is not relieved or becomes more severe, notify the physician who sent you for this procedure. If you were sedated for this procedure: Avoid alcoholic beverages for 24 hours after your procedure. Do not drive or operate heavy machinery for 24 hours after your procedure. Do not make any legal decisions for 24 hours after your procedure. Medication: Please resume home medications today as scheduled, resume eliquis tomorrow 10/25/2021 When to seek medical help: Severe back or abdomen pain. Bright red urine that gets worse or last more than 24 hours (urine may be pink tinged for 24-48 hours). Lightheadedness, dizziness, or fainting. Infection: fever greater than 101 degrees, chills, redness, warmth, swelling, bleeding, or pus frompuncture site. If you experience any of these issues during the first 24 hours, please follow the instruction below: For first 24 hours call [phone] After 24 hours, contact the physician who ordered this procedure for you. Obtaining test results: Please make an appointment with your doctor to obtain your test results. They are usually availablewithin 4 to 7 business days. Do not assume everything is normal if you have not heard from your doctor or medical facility. It is important for you to follow up on all of your test results. Special Instructions: 10/24/2021 13:56:10 Moderate Conscious Sedation, Adult, Care After Moderate Conscious Sedation, Adult, Care After These instructions provide you with information about caring for yourself after your procedure. Your health care provider may also give you more specific instructions. Your treatment has been plannedaccording to current medical practices, but problems sometimes occur. Call your health care provider if you have any problems or questions after your procedure. What can I expect after the procedure? After your procedure, it is common: To feel sleepy for several hours. To feel clumsy and have poor balance for several hours. To have poor judgment for several hours. To vomit if you eat too soon. Follow these instructions at home: For at least 24 hours after the procedure: Do not: ?Participate in activities where you could fall or become injured. ?Drive. ?Use heavy machinery. ?Drink alcohol. ?Take sleeping pills or medicines that cause drowsiness. ?Make important decisions or sign legal documents. ?Take care of children on your own. Rest. Eating and drinking Follow the diet recommended by your health care provider. If you vomit: ?Drink water, juice, or soup when you can drink without vomiting. ?Make sure you have little or no nausea before eating solid foods. General instructions Have a responsible adult stay with you until you are awake and alert. Take srnm-rth-sjraalc and prescription medicines only as told by your health care provider. If you smoke, do not smoke without supervision. Keep all follow-up visits as told by your health care provider. This is important. Contact a health care provider if: You keep feeling nauseous or you keep vomiting. You feel light-headed. You develop a rash. You have a fever. Get help right away if: You have trouble breathing. This information is not intended to replace advice given to you by your health care provider. Make sure you discuss any questions you have with your health care provider. Document Released: 04/18/2014 Document Revised: 06/10/2018 Document Reviewed: 10/17/2016 [employer] Patient Education 2020 [employer]. Follow Up Care 09/16/2021 12:03:43 With:Go to emergency room if symptoms worsen Address:Unknown When: Unknown With:MARLINE PENDLETON MD, [facility] [employer] [facility], Urology Service Address: When: Unknown Comments:Follow-up as scheduled [facility] Consult note Author Mirela Gandara [facility] Note Date/Time October 12, 2024 2:15 pm [facility] Medical Records Department [address] [place] [id number] Counseling Note - Pharmacy 10/12/24 1414 MR#: [id number] Acct: [id number] Name: JADON ALVAREZ Rep #:[id number] 5 : 1955 69 From: Mirela Gandara PCP: Kathleen Herzog MD Status:ADM IN Y Location: [place] [address] Pharmacy [place] Med Reconciliation Pharmacy Service has performed discharge medication reconciliation for this patient upon transfer to SNF. The patient's discharge medication list was reviewed for discrepancies and discrepancies were resolved. Medications at Discharge Home Medications aspirin 81 mg tablet,delayed release 81 mg PO DAILY AFIB 03/17/19 amlodipine 5 mg tablet 5 mg PO DAILY AFIB 10/28/23 apixaban 5 mg tablet (Eliquis) 5 mg PO BID AFIB 10/28/23 atorvastatin 20 mg tablet 20 mg PO QHS HYPERLIPIDEMIA 10/28/23 melatonin 3 mg tablet 6 mg PO QHS INSOMNIA 10/28/23 tamsulosin 0.4 mg capsule 0.4 mg PO QHS PROSTATIC HYPERPLASIA 12/22/23 acetaminophen 325 mg tablet (Tylenol) 650 mg PO Q4H PRN pain 06/01/24 cyanocobalamin (vitamin B-12) 1,000 mcg capsule 500 mcg PO DAILY 06/01/24 insulin glargine 100 unit/mL (3 mL) subcutaneous pen (Lantus Solostar U-100 Insulin) 23 unit subcut QHS 06/01/24 donepezil 5 mg tablet 5 mg PO QHS MEMORY 08/16/24 gabapentin 100 mg capsule 200 mg PO TID NEUROPATHY 08/16/24 insulin lispro 100 unit/mL subcutaneous pen (Humalog KwikPen (U-100) Insulin) See Protocol subcut TID 08/16/24 lurasidone 40 mg tablet 40 mg PO QHS MOOD 08/16/24 potassium chloride 10 mEq capsule,extended release 10 meq PO BID 08/16/24 torsemide 20 mg tablet 20 mg PO BID HEART 08/16/24 budesonide-formoterol HFA 160 mcg-4.5 mcg/actuation aerosol inhaler (Symbicort) 1 puff inhalation DAILY COPD 09/16/24 lactulose 20 gram/30 mL oral solution 30 ml PO DAILY CONSTIPATION 09/16/24 trazodone 100 mg tablet 100 mg PO QHS insomnia 09/16/24 cefpodoxime 100 mg tablet 100 mg PO BID #20 tabs 10/12/24 10/12/24 1415 <Electronically signed by Mirela Gandara > Date _ Mirela Gandara Cosigner Signature (if applicable): Date CC: ~ Signed [facility] Work Phone: Evaluation + Plan note No data available for this section [facility] Evaluation + Plan note Future Appointments Appointment Date:06/26/2021 09:00:00 AM Scheduled Provider:KELLIE BENITES Location:[facility] Appointment Type:PC OV [facility] Evaluation + Plan note Future Appointments Appointment Date:07/03/2021 08:10:00 AM Scheduled Provider:YADIEL TORRES Location:[facility] Appointment Type:PC OV Future Scheduled Tests Radiology* CT Renal 06/26/21 [facility] Evaluation + Plan note Future Appointments Appointment Date:07/07/2021 08:30:00 AM Scheduled Provider:YADIEL TORRES Location:[facility] Appointment Type:PC OV [facility] Evaluation + Plan note Future Appointments Appointment Date:08/19/2021 02:30:00 PM Scheduled Provider: Location:[facility] Appointment Type:US Renal Diagnostic Tests Pending * FAYE (serum) 08/05/21 * Protein Electrophoresis Urine 08/05/21 Future Scheduled Tests Laboratory* Basic Metabolic Panel 08/16/21 Radiology* US Renal 08/19/21 [facility] Evaluation + Plan note Future Appointments Appointment Date:09/30/2021 11:00:00 AM Scheduled Provider: Location:[facility] Appointment Type:ACC POC Established Patient Future Scheduled Tests Laboratory* Basic Metabolic Panel 08/16/21 * APTT Panel 09/09/21 * Complete Blood Count 09/09/21 * Prothrombin Time - Panel 09/09/21 Radiology* US Biopsy Renal Left Mass Core 09/09/21 * XR Chest 2 Views (PA & Lateral) 10/07/21 [facility] Evaluation + Plan note Future Appointments Appointment Date:10/28/2021 09:00:00 AM Scheduled Provider: Location:[facility] Appointment Type:ACC POC Established Patient Appointment Date:11/24/2021 03:40:00 PM Scheduled Provider:MARLINE PENDLETON MD Location:UROLOGY Appointment Type:URO OV Talk Appointment Date:12/30/2021 09:00:00 AM Scheduled Provider: Location:[facility] Appointment Type:DB Diabetic Individual Visit Future Scheduled Tests Laboratory* Basic Metabolic Panel 08/16/21 * APTT Panel 09/09/21 * Complete Blood Count 09/09/21 * Prothrombin Time - Panel 09/09/21 Radiology* XR Chest 2 Views (PA & Lateral) 10/07/21 [facility] Evaluation + Plan note Future Appointments Appointment Date:11/06/2021 01:40:00 PM Scheduled Provider:YADIEL TORRES Location:[facility] Appointment Type:PC OV Appointment Date:11/07/2021 09:00:00 AM Scheduled Provider: Location:[facility] Appointment Type:ACC POC Established Patient Appointment Date:12/30/2021 09:00:00 AM Scheduled Provider: Location:[facility] Appointment Type:DB Diabetic Individual Visit Appointment Date:01/30/2022 11:20:00 AM Scheduled Provider:MARLINE PENDLETON MD Location:UROLOGY Appointment Type:URO OV 20 min Future Scheduled Tests Laboratory* Creatinine 02/02/22 * Basic Metabolic Panel 08/16/21 * APTT Panel 09/09/21 * Complete Blood Count 09/09/21 * Prothrombin Time - Panel 09/09/21 Radiology* XR Chest 2 Views (PA & Lateral) 10/07/21 * CT Abdomen w/ IV Contrast Only 02/02/22 [facility] Evaluation + Plan note Future Appointments Appointment Date:12/30/2021 09:00:00 AM Scheduled Provider: Location:[facility] Appointment Type:DB Diabetic Individual Visit Appointment Date:01/30/2022 11:20:00 AM Scheduled Provider:MARLINE PENDLETON MD Location:UROLOGY Appointment Type:URO OV 20 min Appointment Date:03/05/2022 02:00:00 PM Scheduled Provider:YADIEL TORRES Location:[facility] Appointment Type:PC OV Future Scheduled Tests Laboratory* Creatinine 02/02/22 * Basic Metabolic Panel 08/16/21 * APTT Panel 09/09/21 * Complete Blood Count 09/09/21 * Prothrombin Time - Panel 09/09/21 Radiology* XR Chest 2 Views (PA & Lateral) 10/07/21 * CT Abdomen w/ IV Contrast Only 02/02/22 [facility] Evaluation + Plan note Future Appointments Appointment Date:03/05/2022 02:00:00 PM Scheduled Provider:YADIEL TORRES Location:[facility] Appointment Type:PC OV Appointment Date:04/02/2022 09:00:00 AM Scheduled Provider: Location:[facility] Appointment Type:DB Diabetic Individual Visit Future Scheduled Tests Laboratory* Creatinine 02/02/22 * Basic Metabolic Panel 08/16/21 * APTT Panel 09/09/21 * Complete Blood Count 09/09/21 * Prothrombin Time - Panel 09/09/21 Radiology* XR Chest 2 Views (PA & Lateral) 10/07/21 * CT Abdomen w/ IV Contrast Only 01/15/22 [facility] Evaluation + Plan note Future Appointments Appointment Date:04/02/2022 09:00:00 AM Scheduled Provider: Location:[facility] Appointment Type:DB Diabetic Individual Visit Future Scheduled Tests Laboratory* Creatinine 02/02/22 * Basic Metabolic Panel 08/16/21 * APTT Panel 09/09/21 * Complete Blood Count 09/09/21 * Prothrombin Time - Panel 09/09/21 Radiology* XR Chest 2 Views (PA & Lateral) 10/07/21 * CT Abdomen w/ IV Contrast Only [facility] Future Appointments Appointment Date:05/25/2022 08:00:00 AM Scheduled Provider: Location:[facility] Appointment Type:yyNM Myocard Spect R/S 2 Day S1 - Praveena Appointment Date:05/26/2022 08:30:00 AM Scheduled Provider: Location:[facility] Appointment Type:yyNM Myocard Spect R/S 2 Day S2 - Praveena Appointment Date:06/09/2022 02:00:00 PM Scheduled Provider:GAVINO AG Location:[facility] Appointment Type:CV OV Appointment Date:07/07/2022 09:00:00 AM Scheduled Provider: Location:[facility] Appointment Type:DB Diabetic Individual Visit (AOH) Future Scheduled Tests Laboratory* Creatinine 02/02/22 * Basic Metabolic Panel 08/16/21 * APTT Panel 09/09/21 * Complete Blood Count 09/09/21 * Prothrombin Time - Panel 09/09/21 Radiology* NM Myocardial Spect Rest/Stress 05/25/22 * XR Chest 2 Views (PA & Lateral) 10/07/21 * CT Abdomen w/ IV Contrast Only 01/15/22 [facility] Plan note Future Appointments Appointment Date:05/26/2022 08:30:00 AM Scheduled Provider: Location:[facility] Appointment Type:Audra Prajapati Spect R/S 2 Day S2 - Praveena Appointment Date:06/09/2022 02:00:00 PM Scheduled Provider:GAVINO AG Location:[facility] Appointment Type:CV OV Appointment Date:07/07/2022 09:00:00 AM Scheduled Provider: Location:[facility] Appointment Type:DB Diabetic Individual Visit (AOH) Future Scheduled Tests Laboratory* Creatinine 02/02/22 * Basic Metabolic Panel 08/16/21 * APTT Panel 09/09/21 * Complete Blood Count 09/09/21 * Prothrombin Time - Panel 09/09/21 Radiology* XR Chest 2 Views (PA & Lateral) 10/07/21 * CT Abdomen w/ IV Contrast Only 01/15/22 [facility] note Future Appointments Appointment Date:01/05/2023 09:00:00 AM Scheduled Provider: Location:[facility] Appointment Type:DB Diabetic Individual Visit (AOH) Appointment Date:01/08/2023 09:30:00 AM Scheduled Provider:KELLIE BENITES Location:[facility] Appointment Type:PC OV Follow Up Future Scheduled Tests Laboratory* Creatinine 02/02/22 * Prostate Specific Antigen 10/08/22 * Complete Blood Count 10/08/22 * Lipid Profile 10/08/22 * Complete Metabolic Panel 10/08/22 Radiology* CT Abdomen w/ IV Contrast Only 01/15/22 [facility] note Future Appointments Appointment Date:01/20/2023 09:00:00 AM Scheduled Provider:GAVINO AG Location:[facility] Appointment Type:CV OV Appointment Date:04/07/2023 09:00:00 AM Scheduled Provider: Location:[facility] Appointment Type:DB Diabetic Individual Visit (AOH) Appointment Date:07/09/2023 09:00:00 AM Scheduled Provider:KELLIE BENITES Location:[facility] Appointment Type:PC OV Future Scheduled Tests Laboratory* Creatinine 02/02/22 * Prostate Specific Antigen 10/08/22 * Complete Blood Count 10/08/22 * Lipid Profile 10/08/22 * Complete Metabolic Panel 10/08/22 Radiology* CT Abdomen w/ IV Contrast Only 01/15/22 [facility] Plan note Future Appointments Appointment Date:03/02/2023 09:00:00 AM Scheduled Provider:GAVINO AG Location:[facility] Appointment Type:CV OV Appointment Date:04/07/2023 09:00:00 AM Scheduled Provider: Location:[facility] Appointment Type:FATUMA Diabetic Individual Visit (AO) Appointment Date:07/09/2023 09:00:00 AM Scheduled Provider:KELLIE BENITES Location:[facility] Appointment Type:PC OV Future Scheduled Tests Laboratory* Creatinine 02/02/22 * Basic Metabolic Panel 02/13/23 * Prostate Specific Antigen 02/13/23 * Prostate Specific Antigen 10/08/22 * Complete Blood Count 10/08/22 * Lipid Profile 10/08/22 * Complete Metabolic Panel 10/08/22 Radiology* CT Abdomen w/ IV Contrast Only 01/15/22 [facility] Plan note Future Appointments Appointment Date:03/16/2023 08:00:00 AM Scheduled Provider: Location:[facility] Appointment Type:CV Procedure - Heart Lab/Hybrid OR Appointment Date:04/07/2023 09:00:00 AM Scheduled Provider: Location:[facility] Appointment Type:FATUMA Diabetic Individual Visit (AO) Appointment Date:07/09/2023 09:00:00 AM Scheduled Provider:KELLIE BENITES Location:[facility] Appointment Type:PC OV Appointment Date:07/13/2023 09:00:00 AM Scheduled Provider:KELLIE BENITES Location:[facility] Appointment Type:PC OV Future Scheduled Tests Laboratory* Basic Metabolic Panel 02/13/23 * Prostate Specific Antigen 02/13/23 * Prostate Specific Antigen 10/08/22 * Complete Blood Count 10/08/22 * Lipid Profile 10/08/22 * Complete Metabolic Panel 10/08/22 [facility] note Future Appointments Appointment Date:04/07/2023 09:00:00 AM Scheduled Provider: Location:[facility] Appointment Type:DB Diabetic Individual Visit (AOH) Appointment Date:04/15/2023 09:30:00 AM Scheduled Provider:GAVINO AG Location:[facility] Appointment Type:CV OV Appointment Date:07/09/2023 09:00:00 AM Scheduled Provider:KELLIE BENITES Location:[facility] Appointment Type:PC OV Appointment Date:07/13/2023 09:00:00 AM Scheduled Provider:KELLIE BENITES Location:[facility] Appointment Type:PC OV Future Scheduled Tests Laboratory* Basic Metabolic Panel 02/13/23 * Prostate Specific Antigen 02/13/23 * Prostate Specific Antigen 10/08/22 * Complete Blood Count 10/08/22 * Lipid Profile 10/08/22 * Complete Metabolic Panel 10/08/22 [facility] Evaluation + Plan note Future Appointments Appointment Date:07/07/2023 08:00:00 AM Scheduled Provider: Location:[facility] Appointment Type:DB Diabetic Individual Visit (AOH) Appointment Date:07/13/2023 09:00:00 AM Scheduled Provider:KELLIE BENITES Location:[facility] Appointment Type:PC OV Appointment Date:10/22/2023 09:30:00 AM Scheduled Provider:KELLIE BENITES Location:[facility] Appointment Type:PC OV Future Scheduled Tests Laboratory* Basic Metabolic Panel 02/13/23 * Prostate Specific Antigen 02/13/23 * Prostate Specific Antigen 10/08/22 * Complete Blood Count 10/08/22 * Lipid Profile 10/08/22 * Albumin/Creatinine Ratio, Random Urine 06/11/23 * Complete Metabolic Panel 10/08/22 Radiology* US Abdomen and Aorta 04/27/23 [facility] note Future Appointments Appointment Date:08/18/2023 08:00:00 AM Scheduled Provider: Location:[facility] Appointment Type:DB Diabetic Individual Visit (AOH) Appointment Date:10/22/2023 09:30:00 AM Scheduled Provider:KELLIE BENITES Location:[facility] Appointment Type:PC OV Future Scheduled Tests Laboratory* Basic Metabolic Panel 02/13/23 * Prostate Specific Antigen 02/13/23 * Prostate Specific Antigen 10/08/22 * Complete Blood Count 10/08/22 * Lipid Profile 10/08/22 * Albumin/Creatinine Ratio, Random Urine 06/11/23 * Complete Metabolic Panel 10/08/22 [facility] Plan note Future Appointments Appointment Date:12/30/2023 09:00:00 AM Scheduled Provider: Location:[facility] Appointment Type:MEDS - Diabetic Individual Visit Future Scheduled Tests Laboratory* Basic Metabolic Panel 02/13/23 * Prostate Specific Antigen 02/13/23 * Albumin/Creatinine Ratio, Random Urine 06/11/23 [facility] Plan note Future Appointments Appointment Date:01/28/2024 09:00:00 AM Scheduled Provider: Location:[facility] Appointment Type:Echo - Echocardiogram Adult Appointment Date:02/01/2024 09:15:00 AM Scheduled Provider:GAVINO AG Location:[facility] Appointment Type:CV OV Future Scheduled Tests Laboratory* Basic Metabolic Panel 01/11/24 * Basic Metabolic Panel 02/13/23 * Prostate Specific Antigen 02/13/23 * Albumin/Creatinine Ratio, Random Urine 06/11/23 * N-Terminal proBNP 01/11/24 [facility] Plan note Future Appointments Appointment Date:02/01/2024 09:15:00 AM Scheduled Provider:GAVINO AG Location:[facility] Appointment Type:CV OV Future Scheduled Tests Laboratory* Basic Metabolic Panel 01/11/24 * Basic Metabolic Panel 02/13/23 * Prostate Specific Antigen 02/13/23 * Albumin/Creatinine Ratio, Random Urine 06/11/23 * N-Terminal proBNP 01/11/24 [facility] Plan note Future Appointments Appointment Date:06/14/2024 09:30:00 AM Scheduled Provider:GAVINO AG Location:[facility] Appointment Type:CV OV Future Scheduled Tests Laboratory* Basic Metabolic Panel 01/11/24 * Albumin/Creatinine Ratio, Random Urine 06/11/23 * N-Terminal proBNP 01/11/24 [facility] Plan note Future Appointments Appointment Date:04/13/2024 11:00:00 AM Scheduled Provider:KELLIE BENITES Location:[facility] Appointment Type:PC OV Appointment Date:06/14/2024 09:30:00 AM Scheduled Provider:GAVINO AG Location:[facility] Appointment Type:CV OV Diagnostic Tests Pending * Urine Culture 04/04/24 Future Scheduled Tests Laboratory* Basic Metabolic Panel 01/11/24 * Urinalysis w/ C&S if Indicated 04/04/24 * Albumin/Creatinine Ratio, Random Urine 04/05/24 * Albumin/Creatinine Ratio, Random Urine 06/11/23 * N-Terminal proBNP 01/11/24 [facility] Plan note Future Appointments Appointment Date:04/13/2024 11:00:00 AM Scheduled Provider:KELLIE BENITES Location:[facility] Appointment Type:PC OV Appointment Date:06/14/2024 09:30:00 AM Scheduled Provider:GAVINO AG Location:[facility] Appointment Type:CV OV Future Scheduled Tests Laboratory* Basic Metabolic Panel 01/11/24 * Urinalysis w/ C&S if Indicated 04/04/24 * Albumin/Creatinine Ratio, Random Urine 06/11/23 * N-Terminal proBNP 01/11/24 [facility] Plan note Future Appointments Appointment Date:12/27/2024 09:30:00 AM Scheduled Provider:GAVINO AG Location:[facility] Appointment Type:CV OV Future Scheduled Tests Laboratory* Basic Metabolic Panel 01/11/24 * Urinalysis w/ C&S if Indicated 04/04/24 * N-Terminal proBNP 01/11/24 [facility] note* Diagnosis Onset Date Resolution Status Impaired mobility and ADLs kenia michael [facility] Work Phone: Evaluation note* Diagnosis Difficulty urinating- Primary Other symptoms involving urinary system Benign prostatic hyperplasia with urinary retention [facility] Difficulty urinating- Primary Other symptoms involving urinary system [facility] Diagnosis BPH with obstruction/lower urinary tract symptoms- Primary Hypertrophy of prostate with urinary obstruction and other lower urinary tract symptoms (LUTS) Chronic retention of urine Other specified retention of urine [facility] Renal mass, left- Primary Unspecified disorder of kidney and ureter Adrenal nodule (HCC) Unspecified disorder of adrenal glands Benign prostatic hyperplasia with urinary retention Other specified disorders of kidney and ureter Renal mass, left Unspecified disorder of kidney and ureter Other specified disorders of kidney and ureter [facility] Author Allie Swann [facility] Note Date/Time January 05, 2025 2:53 pm [facility] Medical Records Department [address] [place] [id number] H&P Exam - Hospitalist 01/05/25 1441 MR#: [id number] Acct: [id number] Name: JADON ALVAREZ Rep #:[id number] 1 : 1955 69 From: Allie Swann MD PCP: Kathleen Herzog MD Status:REG ER Location: ED HPI - General General Date of Admission: 01/05/25 Date of Service: 01/05/25 Chief Complaint: AMS HPI Narrative JADON ALVAREZ, is a 69-year-old male with history of bipolar disorder, COPD, PAWEL, diabetes, VTE, A-fib, BPH presented [facility] ED 01/05/2025with reported possible mental status change. Reportedly patient refusing answerquestions and there was question of possible fall the day of before presentation. SNF staff thought he was more altered so called EMS. EMS reported that patient has history of bipolar disorder and has had similar symptoms to this in the past. In the ED patient afebrile, heart rate 66 with a blood pressure 144/92, respiratory rate 18 and pulse ox 98% on room air. CBC with normal white blood cell count, hemoglobin 12.4, BUN of 30 and creatinine 1.5 which does seem to be up from baseline of around 0.9, glucose 104. UA suspicious for infection. Chest x-ray and brain CT negative for acute process. Given patient's agitation and altered mental status in the setting of UTI and VALENTIN hospitalist contacted for admission, reportedly social work evaluated patient in ED there was concern that he could need psychiatric placement once these improved but there were further mental health concerns. Patient evaluatedat bedside, very slow to respond and only responds to some questions but reportsoverall feeling tired and unwell, reports he has not had a bowel movement in 4 to 5 days and is making frustrated, has some abdominal discomfort associated with this but he cannot describe this further, possibly some burning on urination. Denies any chest pain or shortness of breath. Said he thinks he might of had a fever last night and might of had some coughing but was unable tofurther characterize that. [facility], [facility] Medical History Major depressive disorder, single episode, unspecified Bipolar disorder, unspecified Other specified peripheral vascular diseases MRSA (methicillin resistant staph aureus) culture positive Lives in alf Wears dentures Depression Anxiety Walker as ambulation aid Ambulates with cane Headache Shortness of breath on exertion Cardiology follow-up encounter History of renal disease Insulin dependent diabetes mellitus Pressure ulcer Abscess Indwelling urethral catheter present Acute painful diabetic polyneuropathy Cancer Former smoker CPAP (continuous positive airway pressure) dependence On home oxygen therapy Pulmonary embolism COPD (chronic obstructive pulmonary disease) Myocardial infarct DVT (deep venous thrombosis) Anemia Ulcer with necrosis of muscle Lymphedema of left lower extremity Lymphedema of right lower extremity Edema of left lower leg Edema of right lower leg Left leg swelling Right leg swelling Chronic venous insufficiency Non-pressure ulcer of right lower extremity with necrosis of muscle BPH (benign prostatic hyperplasia) Atrial fibrillation Blood loss anemia Hypertension Hiatal hernia Diverticulosis Debility Morbid obesity with BMI of 40.0-44.9, adult Impaired mobility SOB (shortness of breath) Heart murmur Heart failure 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 2 diabetes mellitus Aortic valve disease Renal mass, left History of DVT (deep vein thrombosis) Valvular heart disease Atrial fibrillation/flutter Chronic acquired lymphedema Chronic anemia Venous insufficiency (chronic) (peripheral) Ulcer of left lower extremity with fat layer exposed Superficial thrombosis of left lower extremity Peripheral vascular disease of lower extremity with ulceration Sleep apnea Morbid obesity DM2 (diabetes mellitus, type 2) Benign essential HTN Home Medications ?Medication ?Instructions ?Recorded ?Last Taken ?Type aspirin 81 mg tablet,delayed 81 mg PO DAILY AFIB 03/17 Unknown History release amlodipine 5 mg tablet 5 mg PO DAILY AFIB 10/28/23 Unknown History apixaban 5 mg tablet (Eliquis) 5 mg PO BID AFIB Unknown History atorvastatin 20 mg tablet 20 mg PO QHS HYPERLIPIDEMIA 10/28/23 10/13/24 History melatonin 3 mg tablet 6 mg PO QHS INSOMNIA 4 Unknown History tamsulosin 0.4 mg capsule 0.4 mg PO QHS PROSTATIC HYPE RPLASIA 12/22/23 Unknown History insulin glargine 100 unit/mL (3 23 unit subcut QHS KOBI BETIC 06/01/24 Unknown History mL) subcutaneous pen (Lantus Solostar U-100 Insulin) donepezil 5 mg tablet 5 mg PO QHS MEMORY 08/16/24 Unknown History gabapentin 100 mg capsule 200 mg PO TID NEUROPATHY 12/03 Unknown History insulin lispro 100 unit/mL See Protocol subcut TID KOBI BETIC 08/16/24 Unknown History subcutaneous pen (Humalog KwikPen (U-100) Insulin) lurasidone 40 mg tablet 40 mg PO QHS MOOD 08/16/24 U nknown History potassium chloride 10 mEq 10 meq PO BID POTASSIUM 12/03 Unknown History capsule,extended release torsemide 20 mg tablet 20 mg PO BID HEART 08/16/24 Unknown History budesonide-formoterol HFA 160 1 puff inhalation DAILY COPD 09/16/24 Unknown History mcg-4.5 mcg/actuation aerosol inhaler (Symbicort) trazodone 100 mg tablet 100 mg PO QHS insomnia 09/16 Unknown History acetaminophen 500 mg tablet 1,000 mg PO TID PAIN 01/05 Unknown History lactulose 10 gram/15 mL oral 20 g PO DAILY 01/05/25 Un known History solution magnesium hydroxide 400 mg/5 mL 30 ml PO DAILY PRN con stipation 01/05/25 Unknown History oral suspension (Dulcolax (magnesium hydroxide)) mecobalamin (vitamin B12) 500 mcg 500 mcg PO DAILY Unknown History chewable tablet Allergy/AdvReac Type Severity Reaction Status Date / Time ibuprofen (From Nuprin) Allergy Unknown Verified 01/05/25 08:19 Family History Mother Diabetes Father Cirrhosis of liver Alcoholism Surgical History History of incision and drainage History of embolic filter insertion History of right inguinal hernia repair H/O colectomy History of repair of inguinal hernia History of bladder surgery History of tonsillectomy and adenoidectomy History of right inguinal hernia repair S/P AVR (aortic valve replacement) Social History housing: alf Smoking Status: Former smoker how long ago did patient quit smoking: Quit ~ 20 yrs prior, smoked age 15 untilquit ~ 2 ppd. alcohol intake: never substance use type: does not use ROS ROS Narrative Unable to fully obtain ROS due to mental status and cooperation however patient thinks maybe had a fever last night and had a little bit of a cough but no coughtoday, no shortness of breath or chest pain, some abdominal discomfort with no bowel movement for several days, maybe some burning on urination but denied any other acute complaints aside from some pain on his butt which is not new Vital Signs Vital Signs Vital Signs: 01/05/25 08:18 01/05/25 08:19 01/05/25 08:28 Temperature 97.4 F L Temperature Source Temporal Pulse Rate Respiratory Rate 16 16 Respiratory Effort Normal Non-Labored Blood Pressure Blood Pressure Mean Pulse Ox Oxygen Delivery Method 01/05/25 11:12 01/05/25 13:00 Temperature 98.6 F Temperature Source Oral Pulse Rate 66 49 L Respiratory Rate 18 Respiratory Effort Blood Pressure 144/92 H 136/66 H Blood Pressure Mean 109 89 Pulse Ox 98 Oxygen Delivery Method Room Air Physical Exam Narrative General: Patient awake, intermittently answers questions but has difficulty expanding upon any answers he gives HEENT: Normocephalic Eyes: Anicteric, normal conjunctiva, extraocular movements grossly intact Neck: Supple Respiratory: Clear to auscultation bilaterally, normal respiratory effort Cardiovascular: Irregular but normal rate GI: Soft, nontender, nondistended, no rebound, guarding, rigidity Extremities: No pitting edema Musculoskeletal: Moving all extremities Neuro: No overt focal neurological deficits Skin: N chronic changes in lower extremities Psych: Seems to attempt to be cooperative but very slow to respond and somewhat suspicious Results Lab / Micro Data 01/05/25 11:15 01/05/25 11:15 Labs: Laboratory Results - last 24 hr 01/05/25 10:47: Urine Color Yellow, Urine Clarity Sl. Cloudy, Urine pH 8.0, Ur Specific Crouse 1.010, Urine Protein 100 H, Urine Glucose (UA) Normal, Urine Ketones Negative, Urine Occult Blood 150 H, Urine Nitrite Positive H, Urine Bilirubin Negative, Urine Urobilinogen Normal, Ur Leukocyte Esterase 500 H, Urine RBC 5-10 SEEN, Urine WBC 5-10 SEEN, Ur Squamous Epith Cells 0 SEEN, TriplePhos Crystals 1+, Urine Bacteria 2+, Urine Mucus 0 SEEN 01/05/25 11:15: WBC 4.7, RBC 4.65, Hgb 12.4 L, Hct 39.3 L, MCV 84.5, MCH 26.7 L,MCHC 31.6 L, RDW Std Deviation 47.2 H, RDW Coeff of Carlito 15.4 H, Plt Count 177, MPV 11.7, Immature Gran % (Auto) 0.000, Neut % (Auto) 54.3, Lymph % (Auto) 23.9,Stoddard % (Auto) 16.1 H, Eos % (Auto) 5.1 H, Baso % (Auto) 0.6, Absolute Neuts (auto) 2.6, Absolute Lymphs (auto) 1.13, Nucleated RBC % 0, Sodium 139, Potassium 4.4, Chloride 102, Carbon Dioxide 25.0, Anion Gap 12, BUN 30 H, Creatinine 1.50 H, Est GFR (MDRD) Non-Af 50 L, BUN/Creatinine Ratio 19.9, [id number] H, Calcium 9.7 Imaging Radiology Impression Brain CT 01/05/25 08:51 IMPRESSION: CHRONIC CHANGES. NO ACUTE FINDINGS. Reading Location: [facility] Chest X-Ray 01/05/25 12:30 IMPRESSION: No acute abnormality is seen. Reading Location: [facility] Assessment & Plan Assessment/Plan (1) Altered mental status: (2) Urinary tract infection: (3) Acute kidney injury: PLAN: Plan # Reported mental status change suspect secondary to UTI associated with chronicindwelling Martines catheter -UA suggestive of UTI -Continue empiric antibiotics while awaiting culture and sensitivity data -Supportive care - Patient did report some chronic suicidal thoughts with no plan, social work evaluated patient in ED and thought he may need psychiatric placement if there are still any further concerns once UTI is treated and VALENTIN improves #Type 2 diabetes mellitus -Glucose checks and sliding scale insulin -Will decrease long-acting insulin slightly given glucose only 104 in the ED, want to avoid hypoglycemia, can uptitrate as glucose tolerates # VALENTIN -All of patient's cell lines are out and has an elevated BUN, suspect patient might be slightly volume depleted -IV fluids -Avoid nephrotoxic agents -Repeat in the a.m. - Monitor I's and O's - Patient has chronic Martines catheter - Will hold torsemide for now and monitor volume status # Constipation - Per patient he is constipated, will schedule bowel regimen - Can consider suppository or enema if bowel regimen and potential escalation ofthat regimen did not yield bowel movement - Abdomen soft without any alarm symptoms and patient with no nausea or vomitingat this time # History of bipolar disorder -Continue patient's home medications #hx dvt/pe/afib/bioprosthetic aortic valve - Continue home anticoagulation - Presently in sinus rhythm but with marked sinus arrhythmia, QTc 416 #Hypertension - Blood pressure 136/66, continue home antihypertensives #Hx COPD -Continue home inhalers -Incentive spirometer #PAWEL - Patient reports he does not wear CPAP and has not for a while #Chronic BPH with obstruction -Continue home medications #Dementia -Supportive care -Continue home medications #DVT ppx: Patient on chronic anticoagulation Allie Swann MD Charges/Coding Visit Charges Inpatient E&M: 80537 Init Hosp L2 01/05/25 4606 <Electronically signed by Allie Swann MD> Cosigner Signature (if applicable): CC: Dr. Allie Swann MD; Kathleen Herzog MD~ Signed [facility] Work Phone: Hospital Discharge instructions No data available for this section [facility] Additional Instructions You had a fall. Your CT head and neck are negative. You your notes signs of infection culture sent you are given IV Rocephin. Take and finish antibiotic as prescribed. You requested your urology team change the Martines on your next visit on the . Your labs normal white count. Creatinine 1.46 today. Your creatinine range 1.02-1.46 previously. You are given a liter of fluids. Labs can be rechecked by your doctor. Your abdominal CT negative for any infection. Noted bilateral renal cysts. You had a left adrenal nodule 1.6 cm. Further workup can be done with your doctor.[facility] Work Phone: Progress note No data available for this section [facility] Reason for referral (narrative)No reason for referral information availableWUniversity Hospitals St. [facility] Work Phone: Reason for visit Narrative* MRI/CT (Routine) - Closed Specialty Diagnoses / Procedures Referred By Matt t Referred To Contact CT IMAGING Diagnoses Renal mass, left Other specified disorders of kidney and ureter Procedures CT KIDNEY WO/W IVCON CT ABDOMEN W & W/O CONTRAST Shar Downs MD [address] [place] [address] Phone: tel: fax: [place] [phone] Referral ID Status Reason Start Date Expiration Date V isits Requested Visits Authorized [id number] Closed Auto-Generate d Referral 07/12/2024 07/11/2025 1 1 [facility] note* ROMA Newberry: PERFORM Event Display: Patient Summary Documents Authored Date: [id number] [facility]* Archie Uribe: PERFORM Event Display: Patient Summary Documents Authored Date: [id number] [facility] Chief Complaint and Reason for Visit Chief Complaint ADULT FTT Reason for Visit Impaired mobility an d ADLs Chief Complaint ADULT FTT ADULT FTT ADULT FTT ADULT FTT ADULT FTT ADULT FTT ADULT FTT ADULT FTT ADULT FTT ADULT FTT Reason for Visit Impaired mobility an d ADLs Chief Complaint Admit Date Bilateral surgical skin graft site prep with appli June 05, 2024 11:30am wound June 07, 2024 8:45am wound July 11, 2024 8:30am wound July 26, 2024 8 :45am wound August 30, 2024 8:45am wound September 13, 2024 8:37 am fall September 16, 2024 7:52 pm Reason for Visit Admit Date 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 June 05, 2024 11:30am Other specified peripheral vascular dise ases June 07, 2024 8:45am 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 June 07, 2024 8:45am 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 June 07, 2024 8:45am 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 July 11, 2024 8:30am 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 July 11, 2024 8:30am Non-pressure chronic ulcer o f right heel and 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 July 11, 2024 8:30am 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 July 26, 2024 8:45am 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 July 26, 2024 8:45am Other specified peripheral vascular dise ases August 30, 2024 8:45am 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 August 30, 2024 8:45am 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 September 13, 2024 8:37am Chief Complaint Admit Date wound July 11, 2024 8:30am wound July 26, 2024 8 :45am wound August 30, 2024 8:45am fall September 16, 2024 7:52 pm wound September 27, 2024 9:0 0am Reason for Visit Admit Date 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 July 11, 2024 8:30am 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 July 11, 2024 8:30am Non-pressure chronic ulcer o f right heel and 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 July 11, 2024 8:30am 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 July 26, 2024 8:45am 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 July 26, 2024 8:45am Other specified peripheral vascular dise ases August 30, 2024 8:45am 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 August 30, 2024 8:45am 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 September 27, 2024 9:00am Chief Complaint Admit Date wound July 11, 2024 8:30am wound July 26, 2024 8 :45am wound August 30, 2024 8:45am fall September 16, 2024 7:52 pm wound September 27, 2024 9:0 0am SEPSIS DUE TO UTI, HEMATURIA October 10, 2024 5:46pm Reason for Visit Admit Date 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 July 11, 2024 8:30am 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 July 11, 2024 8:30am Non-pressure chronic ulcer o f right heel and 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 July 11, 2024 8:30am 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 July 26, 2024 8:45am 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 July 26, 2024 8:45am Other specified peripheral vascular dise ases August 30, 2024 8:45am 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 August 30, 2024 8:45am 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 September 27, 2024 9:00am Sepsis October 10, 2024 5:46 pm UTI (urinary tract infection) October 10, 2024 5:46pm Chief Complaint Admit Date wound July 11, 2024 8:30am wound July 26, 2024 8 :45am wound August 30, 2024 8:45am fall September 16, 2024 7:52 pm wound September 27, 2024 9:0 0am SEPSIS DUE TO UTI, HEMATURIA October 10, 2024 5:46pm SEPSIS DUE TO UTI, HEMATURIA October 11, 2024 10:47am SEPSIS DUE TO UTI, HEMATURIA October 12, 2024 11:35am Reason for Visit Admit Date 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 July 11, 2024 8:30am 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 July 11, 2024 8:30am Non-pressure chronic ulcer o f right heel and 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 July 11, 2024 8:30am 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 July 26, 2024 8:45am 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 July 26, 2024 8:45am Other specified peripheral vascular dise ases August 30, 2024 8:45am 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 August 30, 2024 8:45am 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 September 27, 2024 9:00am Martines catheter problem October 10, 2024 5 :46pm Pancytopenia October 10, 2024 5:46 pm Sepsis October 10, 2024 5:46 pm UTI (urinary tract infection) October 10, 2024 5:46pm Chief Complaint Admit Date wound July 11, 2024 8:30am wound July 26, 2024 8 :45am wound August 30, 2024 8:45am fall September 16, 2024 7:52 pm wound September 27, 2024 9:0 0am SEPSIS DUE TO UTI, HEMATURIA October 10, 2024 5:46pm SEPSIS DUE TO UTI, HEMATURIA October 11, 2024 10:47am SEPSIS DUE TO UTI, HEMATURIA October 12, 2024 11:35am MRSA BACTEREMIA October 13, 2024 1:59 pm Reason for Visit Admit Date 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 July 11, 2024 8:30am 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 July 11, 2024 8:30am Non-pressure chronic ulcer o f right heel and 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 July 11, 2024 8:30am 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 July 26, 2024 8:45am 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 July 26, 2024 8:45am Other specified peripheral vascular dise ases August 30, 2024 8:45am 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 August 30, 2024 8:45am 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 September 27, 2024 9:00am Martines catheter problem October 10, 2024 5 :46pm Pancytopenia October 10, 2024 5:46 pm Sepsis October 10, 2024 5:46 pm UTI (urinary tract infection) October 10, 2024 5:46pm Blood bacterial culture positive October 132024 1:59pm Pancytopenia October 13, 2024 1:59 pm 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 October 13, 2024 1:59pm Chief Complaint Admit Date wound July 11, 2024 8:30am wound July 26, 2024 8 :45am wound August 30, 2024 8:45am fall September 16, 2024 7:52 pm wound September 27, 2024 9:0 0am SEPSIS DUE TO UTI, HEMATURIA October 10, 2024 5:46pm SEPSIS DUE TO UTI, HEMATURIA October 11, 2024 10:47am SEPSIS DUE TO UTI, HEMATURIA October 12, 2024 11:35am MRSA BACTEREMIA October 13, 2024 1:59 pm MRSA BACTEREMIA October 14, 2024 7:38 am MRSA BACTEREMIA October 15, 2024 9:02 am MRSA BACTEREMIA October 16, 2024 6:46 am MRSA BACTEREMIA October 17, 2024 7:24 am MRSA BACTEREMIA October 18, 2024 7:12 am Reason for Visit Admit Date 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 July 11, 2024 8:30am 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 July 11, 2024 8:30am Non-pressure chronic ulcer o f right heel and 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 July 11, 2024 8:30am 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 July 26, 2024 8:45am 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 July 26, 2024 8:45am Other specified peripheral vascular dise ases August 30, 2024 8:45am 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 August 30, 2024 8:45am 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 September 27, 2024 9:00am Martines catheter problem October 10, 2024 5 :46pm Pancytopenia October 10, 2024 5:46 pm Sepsis October 10, 2024 5:46 pm UTI (urinary tract infection) October 10, 2024 5:46pm Bacteremia October 13, 2024 1:59 pm Blood bacterial culture positive October 132024 1:59pm Cellulitis of right lower limb October 1:59pm 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 October 13, 2024 1:59pm 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 October 13, 2024 1:59pm Pancytopenia October 13, 2024 1:59 pm Sepsis October 13, 2024 1:59 pm UTI (urinary tract infection) October 13, 2024 1:59pm Chief Complaint Admit Date wound August 30, 2024 8:45am fall September 16, 2024 7:52 pm wound September 27, 2024 9:0 0am SEPSIS DUE TO UTI, HEMATURIA October 10, 2024 5:46pm SEPSIS DUE TO UTI, HEMATURIA October 11, 2024 10:47am SEPSIS DUE TO UTI, HEMATURIA October 12, 2024 11:35am MRSA BACTEREMIA October 13, 2024 1:59 pm MRSA BACTEREMIA October 14, 2024 7:38 am MRSA BACTEREMIA October 15, 2024 9:02 am MRSA BACTEREMIA October 16, 2024 6:46 am MRSA BACTEREMIA October 17, 2024 7:24 am MRSA BACTEREMIA October 18, 2024 7:12 am wound November 08, 2024 9:4 5am wound November 29, 2024 9:36a m Reason for Visit Admit Date 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 August 30, 2024 8:45am Other specified peripheral vascular dise ases August 30, 2024 8:45am 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 September 27, 2024 9:00am Martines catheter problem October 10, 2024 5 :46pm Pancytopenia October 10, 2024 5:46 pm Sepsis October 10, 2024 5:46 pm UTI (urinary tract infection) October 10, 2024 5:46pm 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 October 13, 2024 1:59pm Bacteremia October 13, 2024 1:59 pm Blood bacterial culture positive October 132024 1:59pm Cellulitis of right lower limb October 1:59pm 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 October 13, 2024 1:59pm Pancytopenia October 13, 2024 1:59 pm Sepsis October 13, 2024 1:59 pm UTI (urinary tract infection) October 13, 2024 1:59pm 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 November 08, 2024 9:45am 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 November 29, 2024 9:36am Chief Complaint Admit Date fall September 16, 2024 7:52 pm wound September 27, 2024 9:0 0am SEPSIS DUE TO UTI, HEMATURIA October 10, 2024 5:46pm SEPSIS DUE TO UTI, HEMATURIA October 11, 2024 10:47am SEPSIS DUE TO UTI, HEMATURIA October 12, 2024 11:35am MRSA BACTEREMIA October 13, 2024 1:59 pm MRSA BACTEREMIA October 14, 2024 7:38 am MRSA BACTEREMIA October 15, 2024 9:02 am MRSA BACTEREMIA October 16, 2024 6:46 am MRSA BACTEREMIA October 17, 2024 7:24 am MRSA BACTEREMIA October 18, 2024 7:12 am wound November 08, 2024 9:4 5am wound November 29, 2024 9:36a m wound January 03, 2025 8:23 am MENTAL STATUS CHANGE WITH UTI AND VALENTIN Ju mo 2024 2:41pm Reason for Visit Admit Date 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 September 27, 2024 9:00am Martines catheter problem October 10, 2024 5 :46pm Pancytopenia October 10, 2024 5:46 pm Sepsis October 10, 2024 5:46 pm UTI (urinary tract infection) October 10, 2024 5:46pm 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 October 13, 2024 1:59pm Bacteremia October 13, 2024 1:59 pm Blood bacterial culture positive October 132024 1:59pm Cellulitis of right lower limb October 1:59pm 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 October 13, 2024 1:59pm Pancytopenia October 13, 2024 1:59 pm Sepsis October 13, 2024 1:59 pm UTI (urinary tract infection) October 13, 2024 1:59pm 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 November 08, 2024 9:45am 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 November 29, 2024 9:36am 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 January 03, 2025 8:23am Acute kidney injury January 05, 2025 2:41 pm Altered mental status January 05, 2025 2: 41pm Urinary tract infection January 05, 2025 2:41pm Chief Complaint Admit Date fall September 16, 2024 7:52 pm wound September 27, 2024 9:0 0am SEPSIS DUE TO UTI, HEMATURIA October 10, 2024 5:46pm SEPSIS DUE TO UTI, HEMATURIA October 11, 2024 10:47am SEPSIS DUE TO UTI, HEMATURIA October 12, 2024 11:35am MRSA BACTEREMIA October 13, 2024 1:59 pm MRSA BACTEREMIA October 14, 2024 7:38 am MRSA BACTEREMIA October 15, 2024 9:02 am MRSA BACTEREMIA October 16, 2024 6:46 am MRSA BACTEREMIA October 17, 2024 7:24 am MRSA BACTEREMIA October 18, 2024 7:12 am wound November 08, 2024 9:4 5am wound November 29, 2024 9:36a m wound January 03, 2025 8:23 am MENTAL STATUS CHANGE WITH UTI AND VALENTIN Ju ne 2024 2:41pm MENTAL STATUS CHANGE WITH UTI AND VALENTIN [facility] 2024 10:50am Chief Complaint Admit Date SEPSIS DUE TO UTI, HEMATURIA October 10, 2024 5:46pm SEPSIS DUE TO UTI, HEMATURIA October 12, 2024 11:35am MRSA BACTEREMIA October 13, 2024 1:59 pm MRSA BACTEREMIA October 14, 2024 7:38 am MRSA BACTEREMIA October 15, 2024 9:02 am MRSA BACTEREMIA October 16, 2024 6:46 am MRSA BACTEREMIA October 17, 2024 7:24 am MRSA BACTEREMIA October 18, 2024 7:12 am wound November 08, 2024 9:4 5am wound November 29, 2024 9:36a m wound January 03, 2025 8:23 am MENTAL STATUS CHANGE WITH UTI AND VALENTIN [facility] 2024 2:41pm MENTAL STATUS CHANGE WITH UTI AND VALENTIN [facility] 2024 10:50am wound January 24, 2025 8:55 am Reason for Visit Admit Date Martines catheter problem October 10, 2024 5 :46pm Pancytopenia October 10, 2024 5:46 pm Sepsis October 10, 2024 5:46 pm UTI (urinary tract infection) October 10, 2024 5:46pm 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 October 13, 2024 1:59pm Bacteremia October 13, 2024 1:59 pm Blood bacterial culture positive October 132024 1:59pm Cellulitis of right lower limb October 1:59pm 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 October 13, 2024 1:59pm Pancytopenia October 13, 2024 1:59 pm Sepsis October 13, 2024 1:59 pm UTI (urinary tract infection) October 13, 2024 1:59pm 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 November 08, 2024 9:45am 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 November 29, 2024 9:36am 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 January 03, 2025 8:23am Acute kidney injury January 05, 2025 2:41 pm Altered mental status January 05, 2025 2: 41pm Urinary tract infection January 05, 2025 2:41pm 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 January 24, 2025 8:55am Advance Directives No Advanced Directives Records Found Advance Directive Response Recorded Date/ Time Living Will No October 28, 2023 1:12pm Power of Landscape Specialist No October 27 1:12pm Advance Directive Response Recorded Date/ Time Name of Medical Power of Landscape Specialist Jann lo October 28, 2023 8:22pm Living Will Yes October 28, 2023 8:22pm Power of Landscape Specialist Yes October 27 8:22pm Advance Directive Response Recorded Date/ Time Living Will Yes April 11 12:35am Power of Landscape Specialist Yes April 11 12:35am Living Will No June 01 1:00pm Power of Landscape Specialist No June 01, 2024 1:00pm Living Will Yes June 11 1:42am Power of Landscape Specialist Yes June 11, 2024 1:42am Living Will Yes July 12 1:43am Power of Landscape Specialist Yes July 12 025 1:43am Living Will Yes August 12 3:17am Power of Landscape Specialist Yes August 12, 2024 3:17am Living Will Yes September 09, 2024 3:27am Power of Landscape Specialist Yes September 09 3:27am Living Will No September 16, 2024 9:10pm Power of Landscape Specialist No September 16 9:10pm Advance Directive Response Recorded Date/ Time Living Will Yes June 11 1:42am Do you have a Healthcare Power of Landscape Specialist? Yes June 11, 2024 1:42am Living Will Yes July 12 1:43am Do you have a Healthcare Power of Landscape Specialist? Yes July 12, 2024 1:43am Living Will Yes August 12 3:17am Do you have a Healthcare Power of Landscape Specialist? Yes August 12, 2024 3:17am Living Will Yes September 09, 2024 3:27am Do you have a Healthcare Power of Landscape Specialist? Yes September 09, 2024 3:27am Living Will No September 16, 2024 9:10pm Do you have a Healthcare Power of Landscape Specialist? No September 16, 2024 9:10pm Advance Directive Response Recorded Date/ Time Living Will Yes October 10, 2024 3:29pm Do you have a Healthcare Power of Landscape Specialist? Yes October 10, 2024 3:29pm Name of Medical Power of Landscape Specialist daughter October 10, 2024 3:29pm Living Will Yes June 11 1:42am Do you have a Healthcare Power of Landscape Specialist? Yes June 11, 2024 1:42am Living Will Yes July 12 1:43am Do you have a Healthcare Power of Landscape Specialist? Yes July 12, 2024 1:43am Living Will Yes August 12 3:17am Do you have a Healthcare Power of Landscape Specialist? Yes August 12, 2024 3:17am Living Will Yes September 09, 2024 3:27am Do you have a Healthcare Power of Landscape Specialist? Yes September 09, 2024 3:27am Living Will No September 16, 2024 9:10pm Do you have a Healthcare Power of Landscape Specialist? No September 16, 2024 9:10pm Advance Directive Response Recorded Date/ Time Living Will Yes October 10, 2024 9:20pm Do you have a Healthcare Power of Landscape Specialist? Yes October 10, 2024 9:20pm Name of Medical Power of Landscape Specialist daughter October 10, 2024 9:20pm Living Will Yes June 11 1:42am Do you have a Healthcare Power of Landscape Specialist? Yes June 11, 2024 1:42am Living Will Yes July 12 1:43am Do you have a Healthcare Power of Landscape Specialist? Yes July 12, 2024 1:43am Living Will Yes August 12 3:17am Do you have a Healthcare Power of Landscape Specialist? Yes August 12, 2024 3:17am Living Will Yes September 09, 2024 3:27am Do you have a Healthcare Power of Landscape Specialist? Yes September 09, 2024 3:27am Living Will No September 16, 2024 9:10pm Do you have a Healthcare Power of Landscape Specialist? No September 16, 2024 9:10pm Advance Directive Response Recorded Date/ Time Living Will Yes October 10, 2024 9:20pm Do you have a Healthcare Power of Landscape Specialist? Yes October 10, 2024 9:20pm Name of Medical Power of Landscape Specialist daughter October 10, 2024 9:20pm Living Will Yes June 11 1:42am Do you have a Healthcare Power of Landscape Specialist? Yes June 11, 2024 1:42am Living Will Yes July 12 1:43am Do you have a Healthcare Power of Landscape Specialist? Yes July 12, 2024 1:43am Living Will Yes August 12 3:17am Do you have a Healthcare Power of Landscape Specialist? Yes August 12, 2024 3:17am Living Will Yes September 09, 2024 3:27am Do you have a Healthcare Power of Landscape Specialist? Yes September 09, 2024 3:27am Living Will No September 16, 2024 9:10pm Do you have a Healthcare Power of Landscape Specialist? No September 16, 2024 9:10pm Living Will No October 13, 2024 11:52am Do you have a Healthcare Power of Landscape Specialist? No October 13, 2024 11:52am Advance Directive Response Recorded Date/ Time Living Will Yes October 10, 2024 9:20pm Do you have a Healthcare Power of Landscape Specialist? Yes October 10, 2024 9:20pm Name of Medical Power of Landscape Specialist daughter October 10, 2024 9:20pm Living Will Yes June 11 1:42am Do you have a Healthcare Power of Landscape Specialist? Yes June 11, 2024 1:42am Living Will Yes July 12 1:43am Do you have a Healthcare Power of Landscape Specialist? Yes July 12, 2024 1:43am Living Will Yes August 12 3:17am Do you have a Healthcare Power of Landscape Specialist? Yes August 12, 2024 3:17am Living Will Yes September 09, 2024 3:27am Do you have a Healthcare Power of Landscape Specialist? Yes September 09, 2024 3:27am Living Will No September 16, 2024 9:10pm Do you have a Healthcare Power of Landscape Specialist? No September 16, 2024 9:10pm Living Will No October 13, 2024 3:15pm Do you have a Healthcare Power of Landscape Specialist? No October 13, 2024 3:15pm Advance Directive Response Recorded Date/ Time Living Will Yes October 10, 2024 9:20pm Do you have a Healthcare Power of Landscape Specialist? Yes October 10, 2024 9:20pm Name of Medical Power of Landscape Specialist daughter October 10, 2024 9:20pm Living Will Yes November 09, 2024 12 :40am Do you have a Healthcare Power of Landscape Specialist? Yes November 09, 2024 12:40am Living Will Yes August 12 3:17am Do you have a Healthcare Power of Landscape Specialist? Yes August 12, 2024 3:17am Living Will Yes September 09, 2024 3:27am Do you have a Healthcare Power of Landscape Specialist? Yes September 09, 2024 3:27am Living Will No September 16, 2024 9:10pm Do you have a Healthcare Power of Landscape Specialist? No September 16, 2024 9:10pm Living Will Yes October 10, 2024 12:55am Do you have a Healthcare Power of Landscape Specialist? Yes October 10, 2024 12:55am Living Will No October 13, 2024 3:15pm Do you have a Healthcare Power of Landscape Specialist? No October 13, 2024 3:15pm Advance Directive Response Recorded Date/ Time Living Will Yes October 10, 2024 9:20pm Do you have a Healthcare Power of Landscape Specialist? Yes October 10, 2024 9:20pm Name of Medical Power of Landscape Specialist daughter October 10, 2024 9:20pm Living Will Yes November 09, 2024 12 :40am Do you have a Healthcare Power of Landscape Specialist? Yes November 09, 2024 12:40am Do you have a Healthcare Power of Landscape Specialist? Yes January 05, 2025 8:30am Living Will Yes September 09, 2024 3:27am Do you have a Healthcare Power of Landscape Specialist? Yes September 09, 2024 3:27am Living Will No September 16, 2024 9:10pm Do you have a Healthcare Power of Landscape Specialist? No September 16, 2024 9:10pm Living Will Yes October 10, 2024 12:55am Do you have a Healthcare Power of Landscape Specialist? Yes October 10, 2024 12:55am Living Will No October 13, 2024 3:15pm Do you have a Healthcare Power of Landscape Specialist? No October 13, 2024 3:15pm Living Will Yes December 10, 2024 1 2:19am Do you have a Healthcare Power of Landscape Specialist? Yes December 10, 2024 12:19am Advance Directive Response Recorded Date/ Time Living Will Yes October 10, 2024 9:20pm Do you have a Healthcare Power of Landscape Specialist? Yes October 10, 2024 9:20pm Name of Medical Power of Landscape Specialist daughter October 10, 2024 9:20pm Living Will Yes November 09, 2024 12 :40am Do you have a Healthcare Power of Landscape Specialist? Yes November 09, 2024 12:40am Do you have a Healthcare Power of Landscape Specialist? Yes January 05, 2025 4:33pm Living Will Yes September 09, 2024 3:27am Do you have a Healthcare Power of Landscape Specialist? Yes September 09, 2024 3:27am Living Will No September 16, 2024 9:10pm Do you have a Healthcare Power of Landscape Specialist? No September 16, 2024 9:10pm Living Will Yes October 10, 2024 12:55am Do you have a Healthcare Power of Landscape Specialist? Yes October 10, 2024 12:55am Living Will No October 13, 2024 3:15pm Do you have a Healthcare Power of Landscape Specialist? No October 13, 2024 3:15pm Living Will Yes December 10, 2024 1 2:19am Do you have a Healthcare Power of Landscape Specialist? Yes December 10, 2024 12:19am Advance Directive Response Recorded Date/ Time Living Will Yes October 10, 2024 9:20pm Do you have a Healthcare Power of Landscape Specialist? Yes October 10, 2024 9:20pm Name of Medical Power of Landscape Specialist daughter October 10, 2024 9:20pm Living Will Yes November 09, 2024 12 :40am Do you have a Healthcare Power of Landscape Specialist? Yes November 09, 2024 12:40am Do you have a Healthcare Power of Landscape Specialist? Yes January 05, 2025 4:33pm Living Will Yes October 10, 2024 12:55am Do you have a Healthcare Power of Landscape Specialist? Yes October 10, 2024 12:55am Living Will No October 13, 2024 3:15pm Do you have a Healthcare Power of Landscape Specialist? No October 13, 2024 3:15pm Living Will Yes December 10, 2024 1 2:19am Do you have a Healthcare Power of Landscape Specialist? Yes December 10, 2024 12:19am Summary Purpose Family History Relationship Condition Age at Onset Recorded Date/T claudia mother Diabetes mellitus Unknown father Hepatic cirrhosis Unknown Alcoholism Unknown No Family History Records Found Additional Source Comments Source Comments (unrecognize d section and content) In the event this informatio n is protected by the Federal Confidentiality of Alcohol and Drug Abuse Patient Records regulations: The Federal rules restrict any use of the information to criminally investigate or prosecute any alcohol or drug abuse patient.[facility] the event this information is protected by the Federal Confidentiality of Alcohol and Drug Abuse Patient Records regulations: The Federal rules restrict any use of the information to criminally investigate or prosecute any alcohol or drug abuse patient.[facility] the event this information is protected by the Federal Confidentiality of Alcohol and Drug Abuse Patient Records regulations: The Federal rules restrict any use of the information to criminally investigate or prosecute any alcohol or drug abuse patient.[facility] the event this information is protected by the Federal Confidentiality of Alcohol and Drug Abuse Patient Records regulations: The Federal rules restrict any use of the information to criminally investigate or prosecute any alcohol or drug abuse patient.[facility] the event this information is protected by the Federal Confidentiality of Alcohol and Drug Abuse Patient Records regulations: The Federal rules restrict any use of the information to criminally investigate or prosecute any alcohol or drug abuse patient.[facility] the event this information is protected by the Federal Confidentiality of Alcohol and Drug Abuse Patient Records regulations: The Federal rules restrict any use of the information to criminally investigate or prosecute any alcohol or drug abuse patient.[facility] the event this information is protected by the Federal Confidentiality of Alcohol and Drug Abuse Patient Records regulations: The Federal rules restrict any use of the information to criminally investigate or prosecute any alcohol or drug abuse patient.[facility] the event this information is protected by the Federal Confidentiality of Alcohol and Drug Abuse Patient Records regulations: The Federal rules restrict any use of the information to criminally investigate or prosecute any alcohol or drug abuse patient.[facility] the event this information is protected by the Federal Confidentiality of Alcohol and Drug Abuse Patient Records regulations: The Federal rules restrict any use of the information to criminally investigate or prosecute any alcohol or drug abuse patient.[facility] the event this information is protected by the Federal Confidentiality of Alcohol and Drug Abuse Patient Records regulations: The Federal rules restrict any use of the information to criminally investigate or prosecute any alcohol or drug abuse patient.[facility] the event this information is protected by the Federal Confidentiality of Alcohol and Drug Abuse Patient Records regulations: The Federal rules restrict any use of the information to criminally investigate or prosecute any alcohol or drug abuse patient.[facility] Care Team (unrecognized sect ion and content) Wirer Relationship Specialty Start Date End Date Poornima Medina DO PCP - General Genetics 11/12/11 Team Status: Active Member Role Status Dates Dr. Poornima Medina , DO Family Provider Active Kellie Benites USER EXPERIENCE ANALYST, USER EXPERIENCE ANALYST-C Primary Care Provider Active Team Status: Active Member Role Status Dates Kellie Benites USER EXPERIENCE ANALYST, USER EXPERIENCE ANALYST-C Primary Care Provider Active Dr. Shayna Martinez , DO Emergency Provider Active Dr. Sommer Xie MD Admit Provider, Attending Prov ider Active Team Status: Active Member Role Status Dates Kellie Benites USER EXPERIENCE ANALYST, USER EXPERIENCE ANALYST-C Primary Care Provider Active Dr. Shayna Martinez , DO Emergency Provider Active Dr. Sommer Xie MD Admit Provider, Other Provider Active Dr. Washington Ames , DO Attending Provider, Other Provider Active Team Status: Active Member Role Status Dates Kellie Benites USER EXPERIENCE ANALYST, USER EXPERIENCE ANALYST-C Primary Care Provider Active Dr. Shayna Martinez , DO Emergency Provider Active Dr. Sommer Xie MD Admit Provider Active Dr. Louie Howard , DO Attending Provider, Other Pro vider Active Dr. Washington Ames , DO Other Provider Active Team Status: Active Member Role Status Dates Kellie Benites USER EXPERIENCE ANALYST, USER EXPERIENCE ANALYST-C Primary Care Provider Active Dr. Shayna Martinez , DO Emergency Provider Active Dr. Sommer Xie MD Admit Provider Active Dr. Louie Howard , DO Other Provider Active Dr. Washington Ames , DO Other Provider Active Dr. Regan Kelly , DO Attending Provider Active Team Status: Active Member Role Status Dates Kellie Benites USER EXPERIENCE ANALYST, USER EXPERIENCE ANALYST-C Primary Care Provider Active Dr. Regan Kelly , DO Attending Provider Active Team Status: Inactive Member Role Status Dates Kellie Benites USER EXPERIENCE ANALYST, USER EXPERIENCE ANALYST-C Primary Care Provider Active Dr. Shayna Martinez , DO Emergency Provider Active Dr. Sommer Xie MD Admit Provider Active Dr. Louie Howard , DO Attending Provider, Other Pro vider Active Dr. Washington Ames , DO Other Provider Active Wirer Relationship Specialty Start Date End Date Ignacia Reyna DO [address] [facility] [place] [address] PCP - General Family Medicine 01/12/24 Wirer Relationship Specialty Start Date End Date Ignacia Reyna DO [address] [place] [address] PCP - General Family Medicine 01/12/24 Wirer Relationship Specialty Start Date End Date Ignacia Reyna DO [address] [place] [address] PCP - General Family Medicine 01/12/24 Wirer Relationship Specialty Start Date End Date Ignacia Reyna DO [address] [place] [address] PCP - General Family Medicine 01/12/24 Wirer Relationship Specialty Start Date End Date Ignacia Reyna DO [address] [place] [address] PCP - General Family Medicine 01/12/24 Wirer Relationship Specialty Start Date End Date Ignacia Reyna DO [address] [place] [id number] PCP - General Family Medicine 01/12/24 Team Status: Active Member Role Status Dates Dr. Kathleen Herzog MD Primary Care Provider Active Team Status: Inactive Member Role Status Dates Dr. Ignacia Reyna DO Primary Care Provider Active Start: June 05, 2024 End: June 05, 2024 Dr. Aaron Shannon DPM Attending Provider Active Start: June 05, 2024 End: June 05, 2024 Dr. Aaron Shannon DPM Referring Provider Active Start: June 05, 2024 End: June 05, 2024 Team Status: Inactive Member Role Status Dates Dr. Moshe Kitchen MD Referring Provider Active Start: June 07, 2024 End: June 10, 2024 Dr. Ignacia Reyna DO Primary Care Provider Active Start: June 07, 2024 End: June 10, 2024 Dr. Ignacia Reyna DO Other Provider Active Sta rt: June 07, 2024 End: June 10, 2024 Dr. Aaron Shannon DPM Attending Provider Active Start: June 07, 2024 End: June 10, 2024 Team Status: Inactive Member Role Status Dates Dr. Moshe Kitchen MD Referring Provider Active Start: July 11, 2024 End: July 11, 2024 Dr. Ignacia Reyna DO Primary Care Provider Active Start: July 11, 2024 End: July 11, 2024 Dr. Ignacia Reyna DO Other Provider Active Sta rt: July 11, 2024 End: July 11, 2024 Dr. Aaron Shannon DPM Attending Provider Active Start: July 11, 2024 End: July 11, 2024 Team Status: Inactive Member Role Status Dates Dr. Moshe Kitchen MD Referring Provider Active Start: July 26, 2024 End: August 11, 2024 Dr. Ignacia Reyna DO Primary Care Provider Active Start: July 26, 2024 End: August 11, 2024 Dr. Ignacia Reyna DO Other Provider Active Sta rt: July 26, 2024 End: August 11, 2024 Dr. Aaron Shannon DPM Attending Provider Active Start: July 26, 2024 End: August 11, 2024 Team Status: Inactive Member Role Status Dates Dr. Moshe Kitchen MD Referring Provider Active Start: August 30, 2024 End: September 08, 2024 Dr. Ignacia Reyna DO Primary Care Provider Active Start: August 30, 2024 End: September 08, 2024 Dr. Ignacia Reyna DO Other Provider Active Sta rt: August 30, 2024 End: September 08, 2024 Dr. Aaron Shannon DPM Attending Provider Active Start: August 30, 2024 End: September 08, 2024 Team Status: Active Member Role Status Dates Dr. Moshe Kitchen MD Referring Provider Active Start: September 13, 2024 Dr. Ignacia Reyna DO Primary Care Provider Active Start: September 13, 2024 Dr. Ignacia Reyna DO Other Provider Active Sta rt: September 13, 2024 Dr. Aaron Shannon DPM Attending Provider Active Start: September 13, 2024 Team Status: Inactive Member Role Status Dates Dr. Juan Cunha DO Emergency Provider Active S tart: September 16, 2024 End: September 17, 2024 Dr. Kathleen Herzog MD Primary Care Provider Active Start: September 16, 2024 End: September 17, 2024 Team Status: Inactive Member Role Status Dates Dr. Juan Cunha DO Attending Provider Active S tart: September 16, 2024 End: September 17, 2024 Dr. Juan Cunha DO Emergency Provider Active S tart: September 16, 2024 End: September 17, 2024 Dr. Kathleen Herzog MD Primary Care Provider Active Start: September 16, 2024 End: September 17, 2024 Team Status: Inactive Member Role Status Dates Dr. Moshe Kitchen MD Referring Provider Active Start: September 27, 2024 End: October 09, 2024 Dr. Ignacia Reyna DO Primary Care Provider Active Start: September 27, 2024 End: October 09, 2024 Dr. Ignacia Reyna DO Other Provider Active Sta rt: September 27, 2024 End: October 09, 2024 Dr. Aaron Shannon DPM Attending Provider Active Start: September 27, 2024 End: October 09, 2024 Team Status: Active Member Role Status Dates Dr. Kathleen Herzog MD Primary Care Provider Active Start: October 10, 2024 Kurtis Monteiro MD Emergency Provider Active Star t: October 10, 2024 Dr. Monika Garcias MD Admit Provider Active St art: October 10, 2024 Dr. Monika Garcias MD Attending Provider Active Start: October 10, 2024 Team Status: Inactive Member Role Status Dates Dr. Kathleen Herzog MD Primary Care Provider Active Start: October 10, 2024 End: October 12, 2024 Kurtis Monteiro MD Emergency Provider Active Star t: October 10, 2024 End: October 12, 2024 Dr. Monika Garcias MD Admit Provider Active St art: October 10, 2024 End: October 12, 2024 Dr. Monika Garcias MD Other Provider Active St art: October 10, 2024 End: October 12, 2024 Dr. Dl Neely MD Attending Provider Active Start: October 10, 2024 End: October 12, 2024 Team Status: Active Member Role Status Dates Dr. Kathleen Herzog MD Primary Care Provider Active Start: October 11, 2024 Kurtis Monteiro MD Emergency Provider Active Star t: October 11, 2024 Dr. Monika Garcias MD Admit Provider Active St art: October 11, 2024 Dr. Monika Garcias MD Other Provider Active St art: October 11, 2024 Dr. Dl Neely MD Attending Provider Active Start: October 11, 2024 Dr. Dl Neely MD Other Provider Active Star t: October 11, 2024 Team Status: Active Member Role Status Dates Dr. Kathleen Herzog MD Primary Care Provider Active Start: October 12, 2024 Kurtis Monteiro MD Emergency Provider Active Star t: October 12, 2024 Dr. Monika Garcias MD Admit Provider Active St art: October 12, 2024 Dr. Monika Garcias MD Other Provider Active St art: October 12, 2024 Dr. Dl Neely MD Attending Provider Active Start: October 12, 2024 Dr. Dl Neely MD Other Provider Active Star t: October 12, 2024 Team Status: Active Member Role Status Dates Dr. Kathleen Herzog MD Primary Care Provider Active Start: October 13, 2024 Dr. Shayna Martinez DO Emergency Provider Active Start: October 13, 2024 Dr. Monika Garcias MD Admit Provider Active St art: October 13, 2024 Dr. Monika Garcias MD Attending Provider Active Start: October 13, 2024 Team Status: Inactive Member Role Status Dates Dr. Kathleen Herzog MD Primary Care Provider Active Start: October 13, 2024 End: October 18, 2024 Dr. Shayna Martinez DO Emergency Provider Active Start: October 13, 2024 End: October 18, 2024 Dr. Monika Garcias MD Admit Provider Active St art: October 13, 2024 End: October 18, 2024 Dr. Monika Garcias MD Other Provider Active St art: October 13, 2024 End: October 18, 2024 Dr. Shayna Montoya DPM Other Provider Active S tart: October 13, 2024 End: October 18, 2024 Dr. Channing Barnard MD Other Provider Active Start: October 13, 2024 End: October 18, 2024 Dr. Vivek Gates DO Attending Provider Active Start: October 13, 2024 End: October 18, 2024 Dr. Colby May MD Other Provider Active Sta rt: October 13, 2024 End: October 18, 2024 Team Status: Active Member Role Status Dates Dr. Kathleen Herzog MD Primary Care Provider Active Start: October 14, 2024 Dr. Shayna Martinez DO Emergency Provider Active Start: October 14, 2024 Dr. Monika Garcias MD Admit Provider Active St art: October 14, 2024 Dr. Monika Garcias MD Other Provider Active St art: October 14, 2024 Dr. Colby May MD Attending Provider Active Start: October 14, 2024 Dr. Colby May MD Other Provider Active Sta rt: October 14, 2024 Dr. Shayna Montoya DPM Other Provider Active S tart: October 14, 2024 Team Status: Active Member Role Status Dates Dr. Kathleen Herzog MD Primary Care Provider Active Start: October 14, 2024 Dr. Suraj Quinn MD Attending Provider Activ e Start: October 14, 2024 Team Status: Active Member Role Status Dates Dr. Kathleen Herzog MD Primary Care Provider Active Start: October 15, 2024 Dr. Shayna Martinez DO Emergency Provider Active Start: October 15, 2024 Dr. Monika Garcias MD Admit Provider Active St art: October 15, 2024 Dr. Monika Garcias MD Other Provider Active St art: October 15, 2024 Dr. Colby May MD Attending Provider Active Start: October 15, 2024 Dr. Colby May MD Other Provider Active Sta rt: October 15, 2024 Dr. Shayna Montoya DPM Other Provider Active S tart: October 15, 2024 Team Status: Active Member Role Status Dates Dr. Kathleen Herzog MD Primary Care Provider Active Start: October 16, 2024 Dr. Shayna Martinez DO Emergency Provider Active Start: October 16, 2024 Dr. Monika Garcias MD Admit Provider Active St art: October 16, 2024 Dr. Monika Garcias MD Other Provider Active St art: October 16, 2024 Dr. Colby May MD Other Provider Active Sta rt: October 16, 2024 Dr. Shayna Montoya DPM Other Provider Active S tart: October 16, 2024 Dr. Channing Barnard MD Other Provider Active Start: October 16, 2024 Dr. Sommer Xie MD Attending Provider Active Start: October 16, 2024 Team Status: Active Member Role Status Dates Dr. Kathleen Herzog MD Primary Care Provider Active Start: October 16, 2024 Dr. Vivek Cádrenas MD Attending Provider Active S tart: October 16, 2024 Team Status: Active Member Role Status Dates Dr. Kathleen Herzog MD Primary Care Provider Active Start: October 17, 2024 Dr. Shayna Martinez DO Emergency Provider Active Start: October 17, 2024 Dr. Monika Garcias MD Admit Provider Active St art: October 17, 2024 Dr. Monika Garcias MD Other Provider Active St art: October 17, 2024 Dr. Shayna Montoya DPM Other Provider Active S tart: October 17, 2024 Dr. Channing Barnard MD Other Provider Active Start: October 17, 2024 Dr. Vivek Gates DO Attending Provider Active Start: October 17, 2024 Dr. Vivek Gates DO Other Provider Active Star t: October 17, 2024 Dr. Colby May MD Other Provider Active Sta rt: October 17, 2024 Team Status: Active Member Role Status Dates Dr. Kathleen Herzog MD Primary Care Provider Active Start: October 18, 2024 Dr. Shayna Martinez DO Emergency Provider Active Start: October 18, 2024 Dr. Monika Garcias MD Admit Provider Active St art: October 18, 2024 Dr. Monika Garcias MD Other Provider Active St art: October 18, 2024 Dr. Shayna Montoya DPM Other Provider Active S tart: October 18, 2024 Dr. Channing Barnard MD Other Provider Active Start: October 18, 2024 Dr. Vivek Gates DO Attending Provider Active Start: October 18, 2024 Dr. Vivek Gates DO Other Provider Active Star t: October 18, 2024 Dr. Colby May MD Other Provider Active Sta rt: October 18, 2024 Team Status: Active Member Role Status Dates Dr. Kathleen Herzog MD Primary Care Provider Active Start: October 18, 2024 Dr. Dane Sun MD Attending Provider Active S tart: October 18, 2024 Wirer Relationship Specialty Start Date End Date Ignacia Reyna DO [address] [facility] [place] [address] PCP - General Family Medicine 01/12/24 Shar Downs MD [address] [place] [id number] Urology 10/31/24 Team Status: Active Member Role Status Dates Dr. Kathleen Herzog MD Primary Care Provider Active Start: October 16, 2024 Dr. Shayna Martinez DO Emergency Provider Active Start: October 16, 2024 Dr. Monika Garcias MD Admit Provider Active St art: October 16, 2024 Dr. Monika Garcias MD Other Provider Active St art: October 16, 2024 Dr. Colby May MD Other Provider Active Sta rt: October 16, 2024 Dr. Shayna Montoya DPM Other Provider Active S tart: October 16, 2024 Dr. Channing Barnard MD Other Provider Active Start: October 16, 2024 Dr. Vivek Gates DO Attending Provider Active Start: October 16, 2024 Team Status: Active Member Role Status Dates Dr. Kathleen Herzog MD Primary Care Provider Active Start: October 16, 2024 Dr. Vivek Cárdenas MD Attending Provider Active S tart: October 16, 2024 Dr. Shayna Montoya DPM Referring Provider Active Start: October 16, 2024 Team Status: Inactive Member Role Status Dates Dr. Moshe Kitchen MD Referring Provider Active Start: November 08, 2024 End: November 08, 2024 Dr. Ignacia Reyna DO Other Provider Active Sta rt: November 08, 2024 End: November 08, 2024 Dr. Aaron Shannon DPM Attending Provider Active Start: November 08, 2024 End: November 08, 2024 Dr. Kathleen Herzog MD Primary Care Provider Active Start: November 08, 2024 End: November 08, 2024 Team Status: Inactive Member Role Status Dates Dr. Moshe Kitchen MD Referring Provider Active Start: November 29, 2024 End: December 09, 2024 Dr. Ignacia Reyna , Other Provider Active Sta rt: November 29, 2024 End: December 09, 2024 Dr. Aaron Shannon DPM Attending Provider Active Start: November 29, 2024 End: December 09, 2024 Dr. Kathleen Herzog MD Primary Care Provider Active Start: November 29, 2024 End: December 09, 2024 Team Status: Active Member Role/Relationship Status Dates Dr. Kathleen Herzog MD Primary Care Provider Active Team Status: Inactive Member Role/Relationship Status Dates Dr. Juan Cunha DO Attending Provider Active S tart: September 16, 2024 End: September 17, 2024 Dr. Juan Cunha DO Emergency Provider Active S tart: September 16, 2024 End: September 17, 2024 Dr. Kathleen Herzog MD Primary Care Provider Active Start: September 16, 2024 End: September 17, 2024 Team Status: Inactive Member Role/Relationship Status Dates Dr. Moshe Kitchen MD Referring Provider Active Start: September 27, 2024 End: October 09, 2024 Dr. Ignacia Reyna DO Primary Care Provider Active Start: September 27, 2024 End: October 09, 2024 Dr. Ignacia Reyna DO Other Provider Active Sta rt: September 27, 2024 End: October 09, 2024 Dr. Aaron Shannon DPM Attending Provider Active Start: September 27, 2024 End: October 09, 2024 Team Status: Inactive Member Role/Relationship Status Dates Dr. Kathleen Herzog MD Primary Care Provider Active Start: October 10, 2024 End: October 12, 2024 Kurtis Monteiro MD Emergency Provider Active Star t: October 10, 2024 End: October 12, 2024 Dr. Monika Garcias MD Admit Provider Active St art: October 10, 2024 End: October 12, 2024 Dr. Monika Garcias MD Other Provider Active St art: October 10, 2024 End: October 12, 2024 Dr. Dl Neely MD Attending Provider Active Start: October 10, 2024 End: October 12, 2024 Team Status: Active Member Role/Relationship Status Dates Dr. Kathleen Herzog MD Primary Care Provider Active Start: October 11, 2024 Kurtis Monteiro MD Emergency Provider Active Star t: October 11, 2024 Dr. Monika Garcias MD Admit Provider Active St art: October 11, 2024 Dr. Monika Garcias MD Other Provider Active St art: October 11, 2024 Dr. Dl Neely MD Attending Provider Active Start: October 11, 2024 Dr. Dl Neely MD Other Provider Active Star t: October 11, 2024 Team Status: Active Member Role/Relationship Status Dates Dr. Kathleen Herzog MD Primary Care Provider Active Start: October 12, 2024 Kurtis Monteiro MD Emergency Provider Active Star t: October 12, 2024 Dr. Monika Garcias MD Admit Provider Active St art: October 12, 2024 Dr. Monika Garcias MD Other Provider Active St art: October 12, 2024 Dr. Dl Neely MD Attending Provider Active Start: October 12, 2024 Dr. Dl Neely MD Other Provider Active Star t: October 12, 2024 Team Status: Inactive Member Role/Relationship Status Dates Dr. Kathleen Herzog MD Primary Care Provider Active Start: October 13, 2024 End: October 18, 2024 Dr. Shayna Martinez DO Emergency Provider Active Start: October 13, 2024 End: October 18, 2024 Dr. Monika Garcias MD Admit Provider Active St art: October 13, 2024 End: October 18, 2024 Dr. Monika Garcias MD Other Provider Active St art: October 13, 2024 End: October 18, 2024 Dr. Shayna Montoya DPM Other Provider Active S tart: October 13, 2024 End: October 18, 2024 Dr. Channing Barnard MD Other Provider Active Start: October 13, 2024 End: October 18, 2024 Dr. Vivek Gates DO Attending Provider Active Start: October 13, 2024 End: October 18, 2024 Dr. Colby May MD Other Provider Active Sta rt: October 13, 2024 End: October 18, 2024 Team Status: Active Member Role/Relationship Status Dates Dr. Kathleen Herzog MD Primary Care Provider Active Start: October 14, 2024 Dr. Shayna Martinez DO Emergency Provider Active Start: October 14, 2024 Dr. Monika Garcias MD Admit Provider Active St art: October 14, 2024 Dr. Monika Garcias MD Other Provider Active St art: October 14, 2024 Dr. Colby May MD Attending Provider Active Start: October 14, 2024 Dr. Colby May MD Other Provider Active Sta rt: October 14, 2024 Dr. Shayna Montoya DPM Other Provider Active S tart: October 14, 2024 Team Status: Active Member Role/Relationship Status Dates Dr. Kathleen Herzog MD Primary Care Provider Active Start: October 14, 2024 Dr. Suraj Quinn MD Attending Provider Activ e Start: October 14, 2024 Team Status: Active Member Role/Relationship Status Dates Dr. Kathleen Herzog MD Primary Care Provider Active Start: October 15, 2024 Dr. Shayna Martinez DO Emergency Provider Active Start: October 15, 2024 Dr. Monika Garcias MD Admit Provider Active St art: October 15, 2024 Dr. Monika Garcias MD Other Provider Active St art: October 15, 2024 Dr. Colby May MD Attending Provider Active Start: October 15, 2024 Dr. Colby May MD Other Provider Active Sta rt: October 15, 2024 Dr. Shayna Montoya DPM Other Provider Active S tart: October 15, 2024 Team Status: Active Member Role/Relationship Status Dates Dr. Kathleen Herzog MD Primary Care Provider Active Start: October 16, 2024 Dr. Shayna Martinez DO Emergency Provider Active Start: October 16, 2024 Dr. Monika Garcias MD Admit Provider Active St art: October 16, 2024 Dr. Monika Garcias MD Other Provider Active St art: October 16, 2024 Dr. Colby May MD Other Provider Active Sta rt: October 16, 2024 Dr. Shayna Montoya DPM Other Provider Active S tart: October 16, 2024 Dr. Channing Barnard MD Other Provider Active Start: October 16, 2024 Dr. Vivek Gates DO Attending Provider Active Start: October 16, 2024 Team Status: Active Member Role/Relationship Status Dates Dr. Kathleen Herzog MD Primary Care Provider Active Start: October 16, 2024 Dr. Vivek Cárdenas MD Attending Provider Active S tart: October 16, 2024 Dr. Shayna Montoya DPM Referring Provider Active Start: October 16, 2024 Team Status: Active Member Role/Relationship Status Dates Dr. Kathleen Herzog MD Primary Care Provider Active Start: October 17, 2024 Dr. Shayna Martinez DO Emergency Provider Active Start: October 17, 2024 Dr. Monika Garcias MD Admit Provider Active St art: October 17, 2024 Dr. Monika Garcias MD Other Provider Active St art: October 17, 2024 Dr. Shayna Montoya DPM Other Provider Active S tart: October 17, 2024 Dr. Channing Barnard MD Other Provider Active Start: October 17, 2024 Dr. Vivek Gates DO Attending Provider Active Start: October 17, 2024 Dr. Vivek aGtes DO Other Provider Active Star t: October 17, 2024 Dr. Colby May MD Other Provider Active Sta rt: October 17, 2024 Team Status: Active Member Role/Relationship Status Dates Dr. Kathleen Herzog MD Primary Care Provider Active Start: October 18, 2024 Dr. Shayna Martinez DO Emergency Provider Active Start: October 18, 2024 Dr. Monika Garcias MD Admit Provider Active St art: October 18, 2024 Dr. Monika Garcias MD Other Provider Active St art: October 18, 2024 Dr. Shayna Montoya DPM Other Provider Active S tart: October 18, 2024 Dr. Channing Barnard MD Other Provider Active Start: October 18, 2024 Dr. Vivek Gates DO Attending Provider Active Start: October 18, 2024 Dr. Vivek Gates DO Other Provider Active Star t: October 18, 2024 Dr. Colby May MD Other Provider Active Sta rt: October 18, 2024 Team Status: Active Member Role/Relationship Status Dates Dr. Kathleen Herzog MD Primary Care Provider Active Start: October 18, 2024 Dr. Dane Sun MD Attending Provider Active S tart: October 18, 2024 Team Status: Inactive Member Role/Relationship Status Dates Dr. Moshe Kitchen MD Referring Provider Active Start: November 08, 2024 End: November 08, 2024 Dr. Ignacia Reyna DO Other Provider Active Sta rt: November 08, 2024 End: November 08, 2024 Dr. Aaron Shannon DPM Attending Provider Active Start: November 08, 2024 End: November 08, 2024 Dr. Kathleen Herzog MD Primary Care Provider Active Start: November 08, 2024 End: November 08, 2024 Team Status: Inactive Member Role/Relationship Status Dates Dr. Moshe Kitchen MD Referring Provider Active Start: November 29, 2024 End: December 09, 2024 Dr. Ignacia Reyna DO Other Provider Active Sta rt: November 29, 2024 End: December 09, 2024 Dr. Aaron Shannon DPM Attending Provider Active Start: November 29, 2024 End: December 09, 2024 Dr. Kathleen Herzog MD Primary Care Provider Active Start: November 29, 2024 End: December 09, 2024 Team Status: Active Member Role/Relationship Status Dates Dr. Moshe Kitchen MD Referring Provider Active Start: January 03, 2025 Dr. Ignacia Reyna DO Other Provider Active Sta rt: January 03, 2025 Dr. Aaron Shannon DPM Attending Provider Active Start: January 03, 2025 Dr. Kathleen Herzog MD Primary Care Provider Active Start: January 03, 2025 Team Status: Active Member Role/Relationship Status Dates Dr. Kathleen Herzog MD Primary Care Provider Active Start: January 05, 2025 Dr. Vivek Villatoro , Emergency Provider Active Start: January 05, 2025 Dr. Allie Swann MD Admit Provider Active Star t: January 05, 2025 Dr. Allie Swann MD Attending Provider Active Start: January 05, 2025 Dr. Allie Swann MD Referring Provider Active Start: January 05, 2025 Team Status: Inactive Member Role/Relationship Status Dates Dr. Kathleen Herzog MD Primary Care Provider Active Start: January 05, 2025 End: January 06, 2025 Dr. Vivek Villatoro DO Emergency Provider Active Start: January 05, 2025 End: January 06, 2025 Dr. Allie Swann MD Admit Provider Active Star t: January 05, 2025 End: January 06, 2025 Dr. Allie Swann MD Referring Provider Active Start: January 05, 2025 End: January 06, 2025 Dr. Allie Swann MD Other Provider Active Star t: January 05, 2025 End: January 06, 2025 Dr. Louie Howard DO Attending Provider Active Start: January 05, 2025 End: January 06, 2025 Team Status: Active Member Role/Relationship Status Dates Dr. Kathleen Herzog MD Primary Care Provider Active Start: January 06, 2025 Dr. Vivek Villatoro DO Emergency Provider Active Start: January 06, 2025 Dr. Allie Swann MD Admit Provider Active Star t: January 06, 2025 Dr. Allie Swann MD Referring Provider Active Start: January 06, 2025 Dr. Allie Swann MD Other Provider Active Star t: January 06, 2025 Dr. Louie Howard DO Attending Provider Active Start: January 06, 2025 Dr. Louie Howard DO Other Provider Active S tart: January 06, 2025 Team Status: Inactive Member Role/Relationship Status Dates Dr. Moshe Kitchen MD Referring Provider Active Start: January 03, 2025 End: January 08, 2025 Dr. Ignacia Reyna DO Other Provider Active Sta rt: January 03, 2025 End: January 08, 2025 Dr. Aaron Shannon DPM Attending Provider Active Start: January 03, 2025 End: January 08, 2025 Dr. Kathleen Herzog MD Primary Care Provider Active Start: January 03, 2025 End: January 08, 2025 Team Status: Inactive Member Role/Relationship Status Dates Dr. Kathleen Herzog MD Primary Care Provider Active Start: October 10, 2024 End: October 12, 2024 Kurtis Monteiro MD Emergency Provider Active Star t: October 10, 2024 End: October 12, 2024 Dr. Monika Garcias MD Admit Provider Active St art: October 10, 2024 End: October 12, 2024 Dr. Monika Garcias MD Other Provider Active St art: October 10, 2024 End: October 12, 2024 Dr. Dl Neely MD Attending Provider Active Start: October 10, 2024 End: October 12, 2024 Team Status: Active Member Role/Relationship Status Dates Dr. Kathleen Herzog MD Primary Care Provider Active Start: October 12, 2024 Kurtis Monteiro MD Emergency Provider Active Star t: October 12, 2024 Dr. Monika Garcias MD Admit Provider Active St art: October 12, 2024 Dr. Monika Garcias MD Other Provider Active St art: October 12, 2024 Dr. Dl Neely MD Attending Provider Active Start: October 12, 2024 Dr. Dl Neely MD Other Provider Active Star t: October 12, 2024 Team Status: Inactive Member Role/Relationship Status Dates Dr. Kathleen Herzog MD Primary Care Provider Active Start: October 13, 2024 End: October 18, 2024 Dr. Shayna Martinez DO Emergency Provider Active Start: October 13, 2024 End: October 18, 2024 Dr. Monika Garcias MD Admit Provider Active St art: October 13, 2024 End: October 18, 2024 Dr. Monika Garcias MD Other Provider Active St art: October 13, 2024 End: October 18, 2024 Dr. Shayna Montoya DPM Other Provider Active S tart: October 13, 2024 End: October 18, 2024 Dr. Channing Barnard MD Other Provider Active Start: October 13, 2024 End: October 18, 2024 Dr. Vivek Gates DO Attending Provider Active Start: October 13, 2024 End: October 18, 2024 Dr. Colby May MD Other Provider Active Sta rt: October 13, 2024 End: October 18, 2024 Team Status: Active Member Role/Relationship Status Dates Dr. Kathleen Herzog MD Primary Care Provider Active Start: October 14, 2024 Dr. Shayna Martinez DO Emergency Provider Active Start: October 14, 2024 Dr. Monika Garcias MD Admit Provider Active St art: October 14, 2024 Dr. Monika Garcias MD Other Provider Active St art: October 14, 2024 Dr. Colby May MD Attending Provider Active Start: October 14, 2024 Dr. Colby May MD Other Provider Active Sta rt: October 14, 2024 Dr. Shayna Montoya DPM Other Provider Active S tart: October 14, 2024 Team Status: Active Member Role/Relationship Status Dates Dr. Kathleen Herzog MD Primary Care Provider Active Start: October 14, 2024 Dr. Suraj Quinn MD Attending Provider Activ e Start: October 14, 2024 Team Status: Active Member Role/Relationship Status Dates Dr. Kathleen Herzog MD Primary Care Provider Active Start: October 15, 2024 Dr. Shayna Martinez DO Emergency Provider Active Start: October 15, 2024 Dr. Monika Garcias MD Admit Provider Active St art: October 15, 2024 Dr. Monika Garcias MD Other Provider Active St art: October 15, 2024 Dr. Colby May MD Attending Provider Active Start: October 15, 2024 Dr. Colby May MD Other Provider Active Sta rt: October 15, 2024 Dr. Shayna Montoya DPM Other Provider Active S tart: October 15, 2024 Team Status: Active Member Role/Relationship Status Dates Dr. Kathleen Hezrog MD Primary Care Provider Active Start: October 16, 2024 Dr. Shayna Martinez DO Emergency Provider Active Start: October 16, 2024 Dr. Monika Garcias MD Admit Provider Active St art: October 16, 2024 Dr. Monika Garcias MD Other Provider Active St art: October 16, 2024 Dr. Colby May MD Other Provider Active Sta rt: October 16, 2024 Dr. Shayna Montoya DPM Other Provider Active S tart: October 16, 2024 Dr. Channing Barnard MD Other Provider Active Start: October 16, 2024 Dr. Vivek Gates DO Attending Provider Active Start: October 16, 2024 Team Status: Active Member Role/Relationship Status Dates Dr. Kathleen Herzog MD Primary Care Provider Active Start: October 16, 2024 Dr. Vivek Cárdenas MD Attending Provider Active S tart: October 16, 2024 Dr. Shayna Montoya DPM Referring Provider Active Start: October 16, 2024 Team Status: Active Member Role/Relationship Status Dates Dr. Kathleen Herzog MD Primary Care Provider Active Start: October 17, 2024 Dr. Shayna Martinez DO Emergency Provider Active Start: October 17, 2024 Dr. Mnoika Garcias MD Admit Provider Active St art: October 17, 2024 Dr. Monika Garcias MD Other Provider Active St art: October 17, 2024 Dr. Shayna Montoya DPM Other Provider Active S tart: October 17, 2024 Dr. Channing Barnard MD Other Provider Active Start: October 17, 2024 Dr. Vivek Gates DO Attending Provider Active Start: October 17, 2024 Dr. Vivek Gates DO Other Provider Active Star t: October 17, 2024 Dr. Colby May MD Other Provider Active Sta rt: October 17, 2024 Team Status: Active Member Role/Relationship Status Dates Dr. Kathleen Herzog MD Primary Care Provider Active Start: October 18, 2024 Dr. Shayna Martinez DO Emergency Provider Active Start: October 18, 2024 Dr. Monika Garcias MD Admit Provider Active St art: October 18, 2024 Dr. Monika Garcias MD Other Provider Active St art: October 18, 2024 Dr. Shayna Montoya DPM Other Provider Active S tart: October 18, 2024 Dr. Channing Barnard MD Other Provider Active Start: October 18, 2024 Dr. Vivek Gates DO Attending Provider Active Start: October 18, 2024 Dr. Vivek Gates DO Other Provider Active Star t: October 18, 2024 Dr. Colby Mya MD Other Provider Active Sta rt: October 18, 2024 Team Status: Active Member Role/Relationship Status Dates Dr. Kathleen Herzog MD Primary Care Provider Active Start: October 18, 2024 Dr. Dane Sun MD Attending Provider Active S tart: October 18, 2024 Team Status: Inactive Member Role/Relationship Status Dates Dr. Moshe Kitchen MD Referring Provider Active Start: November 08, 2024 End: November 08, 2024 Dr. Ignacia Reyna , Other Provider Active Sta rt: November 08, 2024 End: November 08, 2024 Dr. Aaron Shannon DPM Attending Provider Active Start: November 08, 2024 End: November 08, 2024 Dr. Kathleen Herzog MD Primary Care Provider Active Start: November 08, 2024 End: November 08, 2024 Team Status: Inactive Member Role/Relationship Status Dates Dr. Moshe Kitchen MD Referring Provider Active Start: November 29, 2024 End: December 09, 2024 Dr. Ignacia Reyna DO Other Provider Active Sta rt: November 29, 2024 End: December 09, 2024 Dr. Aaron Shannon DPM Attending Provider Active Start: November 29, 2024 End: December 09, 2024 Dr. Kathleen Herzog MD Primary Care Provider Active Start: November 29, 2024 End: December 09, 2024 Team Status: Inactive Member Role/Relationship Status Dates Dr. Moshe Kitchen MD Referring Provider Active Start: January 03, 2025 End: January 08, 2025 Dr. Ignacia Reyna DO Other Provider Active Sta rt: January 03, 2025 End: January 08, 2025 Dr. Aaron Shannon DPM Attending Provider Active Start: January 03, 2025 End: January 08, 2025 Dr. Kathleen Herzog MD Primary Care Provider Active Start: January 03, 2025 End: January 08, 2025 Team Status: Inactive Member Role/Relationship Status Dates Dr. Kathleen Herzog MD Primary Care Provider Active Start: January 05, 2025 End: January 06, 2025 Dr. Vivek Villatoro , Emergency Provider Active Start: January 05, 2025 End: January 06, 2025 Dr. Allie Swann MD Admit Provider Active Star t: January 05, 2025 End: January 06, 2025 Dr. Allie Swann MD Referring Provider Active Start: January 05, 2025 End: January 06, 2025 Dr. Allie Swann MD Other Provider Active Star t: January 05, 2025 End: January 06, 2025 Dr. Louie Howard DO Attending Provider Active Start: January 05, 2025 End: January 06, 2025 Team Status: Active Member Role/Relationship Status Dates Dr. Kathleen Herzog MD Primary Care Provider Active Start: January 06, 2025 Dr. Vivek Villatoro , Emergency Provider Active Start: January 06, 2025 Dr. Allie Swann MD Admit Provider Active Star t: January 06, 2025 Dr. Allie Swann MD Other Provider Active Star t: January 06, 2025 Dr. Louie Howard DO Attending Provider Active Start: January 06, 2025 Dr. Louie Howard DO Other Provider Active S tart: January 06, 2025 Team Status: Inactive Member Role/Relationship Status Dates Dr. Moshe Kitchen MD Referring Provider Active Start: January 24, 2025 End: February 08, 2025 Dr. Ignacia Reyna , Other Provider Active Sta rt: January 24, 2025 End: February 08, 2025 Dr. Aaron Shannon DPM Attending Provider Active Start: January 24, 2025 End: February 08, 2025 Dr. Kathleen Herzog MD Primary Care Provider Active Start: January 24, 2025 End: February 08, 2025 Care Team (unrecognized sect ion and content) Care Team Personnel Name: YADIEL TORRES Position: P4 Advanced Practice Nurse Member Role: Primary Care Physician Address: Address: [address] [place] [phone]- Care Team Related Persons Name: CASA ALVAREZ Address: Home [address] [place] [phone] [place] Name: ROMINA ALVAREZ Care Team Personnel Name: YADIEL TORRES Position: P4 Advanced Practice Nurse Med Service: Active Provider Member Role: Primary Care Physician Address: Address: [address] [place] [phone]- Care Team Related Persons Name: CASA ALVAREZ Address: Home [address] [place] [phone] [place] Name: ROMINA ALVAREZ Care Team Personnel Name: YADIEL TORRES Position: P4 Advanced Practice Nurse Member Role: Primary Care Physician Address: Address: [address] [place] [phone] [place] Care Team Related Persons Name: CASA ALVAREZ Address: Home [address] [place] [phone] [place] Name: ROMINA ALVAREZ Care Team Personnel Name: YADIEL TORRES Position: P4 Advanced Practice Nurse Member Role: Primary Care Physician Address: Address: [address] [place] [id number] Care Team Related Persons Name: CASA ALVAREZ Address: Home [address] [place] [phone] [place] Name: ROMINA ALVAREZ Reason for Visit (unrecogniz ed section and content) Reason Comments New Patient Reason Comments Difficulty Urinating Reason Comments Appointment Reason Comments Cystoscopy-1 Has martines catheter Reason Onset Date Comments Refill Request 09/20/2024 Goals (unrecognized section and content) Goals may be documented in a n alternate section (unrecognized sect ion and content) No Status Records FoundNo Status Records FoundNo Status Records FoundNo Status Records FoundNo Status Records FoundNo Status Records Found INFORMATION SOURCE (unrecogn ized section and content) DATE CREATED AUTHOR 03/16/2024 [facility] ([place] DATE CREATED AUTHOR AUTHOR'S ORGANIZ ATION 04/22/2024 [facility] DATE CREATED AUTHOR AUTHOR'S ORGANIZ ATION 10/28/2024 [facility] DATE CREATED AUTHOR AUTHOR'S ORGANIZ ATION 01/02/2025 [facility] DATE CREATED AUTHOR AUTHOR'S ORGANIZ ATION 01/21/[address] [facility] DATE CREATED AUTHOR AUTHOR'S ORGANIZ ATION 03/09/2025 [facility] FOR RECORDS PERTAINING TO PATIENTS WHO ARE OR HAVE BEEN ENROLLED IN A CHEMICAL DEPENDENCY/SUBSTANCEABUSE PROGRAM, SOME INFORMATION MAY BE OMITTED. This clinical summary was aggregated from multiple sources. Caution should be exercised in using it in the provision of clinical care. This summary normalizes information from multiple sources, and as a consequence, information in this document may materially change the coding, format and clinical context of patient data. In addition, data may be omitted in some cases. CLINICAL DECISIONS SHOULD BE BASED ON THE PRIMARY CLINICAL RECORDS. [facility] provides no warranty or guarantee of the accuracy or completeness of information in this document.
[2025-03-11 23:15] LABS: Hematocrit 34.4 % (40-54); Hemoglobin 10.7 g/dL (13.0-16.5); Immature Granulocytes Count 0.010 X10^3/uL (0.0-0.0); Mean Corp Hgb Conc 31.1 g/dL (32-36); Mean Corpuscular Volume 85.6 fL (80-94); Mean Platelet Vol. 12.4 fl (6.2-12.0); NRBC Flagged by Analyzer 0 % (0-5); Platelet Count 171 K/mm3 (150-450); RBC Distribution Width CV 15.9 % (11.6-14.6); RBC Distribution Width SD 50.6 fl (35.1-43.9); Red Blood Count 4.02 M/mm3 (4.6-6.2); White Blood Count 5.1 K/mm3 (4.4-11.0)
--- NOTE | 2025-03-11 23:17 | EX.ED.DYSGE1 ---
HPI History of Present Illness Chief Complaint: Confusion Informant: patient Narrative Narrative: Patient is a 69-year-old male with history of hypertension, chronic indwelling Cohen catheter, independent dependent diabetes mellitus, CPAP dependence, DVT and atrial fibrillation (on Eliquis), CKD 4, diverticulosis and chronic wound to his right lower leg (follows with wound center and Dr. Shannon) presenting from [facility] for increased confusion and lightheadedness. Staff there states that he is normally ANO x 3 but for them was ANO x 2. He was trying to leave the facility. He is complaining of constipation and has not had a bowel movement for the past week per the patient. Complain of abdominal pain associated with this. In addition he states that he has been feeling lightheaded. Is not clear how long it has been going on. No report of any falls or head injuries. No other complaints or concerns reported this time. [facility] Medical History Diabetes Kidney disease Sleep apnea Atrial fibrillation Irregular heart beat Hypertension Migraines Altered mental status Acute kidney injury Urinary tract infection Major depressive disorder, single episode, unspecified Bipolar disorder, unspecified Other specified peripheral vascular diseases MRSA (methicillin resistant staph aureus) culture positive Lives in [facility] Wears dentures Depression Anxiety Walker as ambulation aid Ambulates with cane Headache Shortness of breath on exertion Cardiology follow-up encounter History of renal disease Insulin dependent diabetes mellitus Pressure ulcer Abscess Indwelling urethral catheter present Acute painful diabetic polyneuropathy Cancer Former smoker CPAP (continuous positive airway pressure) dependence On home oxygen therapy Pulmonary embolism COPD (chronic obstructive pulmonary disease) Myocardial infarct DVT (deep venous thrombosis) Anemia Ulcer with necrosis of muscle Lymphedema of left lower extremity Lymphedema of right lower extremity Edema of left lower leg Edema of right lower leg Left leg swelling Right leg swelling Chronic venous insufficiency Non-pressure ulcer of right lower extremity with necrosis of muscle BPH (benign prostatic hyperplasia) Atrial fibrillation Blood loss anemia Hypertension Hiatal hernia Diverticulosis Debility Morbid obesity with BMI of 40.0-44.9, adult Impaired mobility SOB (shortness of breath) Heart murmur Heart failure 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 2 diabetes mellitus Aortic valve disease Renal mass, left History of DVT (deep vein thrombosis) Valvular heart disease Atrial fibrillation/flutter Chronic acquired lymphedema Chronic anemia Venous insufficiency (chronic) (peripheral) Ulcer of left lower extremity with fat layer exposed Superficial thrombosis of left lower extremity Peripheral vascular disease of lower extremity with ulceration Sleep apnea Morbid obesity DM2 (diabetes mellitus, type 2) Benign essential HTN Home Medications ?Medication ?Instructions ?Recorded ?Last Taken ?Type aspirin 81 mg tablet,delayed 81 mg PO DAILY AFIB 03/17/19 Unknown History release amlodipine 5 mg tablet 5 mg PO DAILY AFIB 10/28/23 Unknown History apixaban 5 mg tablet (Eliquis) 5 mg PO BID AFIB 10/28/23 Unknown History atorvastatin 20 mg tablet 20 mg PO QHS HYPERLIPIDEMIA 10/28/23 10/13/24 History melatonin 3 mg tablet 6 mg PO QHS INSOMNIA 10/28/23 Unknown History tamsulosin 0.4 mg capsule 0.4 mg PO QHS PROSTATIC HYPERPLASIA 12/22/23 Unknown History insulin glargine 100 unit/mL (3 23 unit subcut QHS DIABETIC 06/01/24 Unknown History mL) subcutaneous pen (Lantus Solostar U-100 Insulin) donepezil 5 mg tablet 5 mg PO QHS MEMORY 08/16/24 Unknown History gabapentin 100 mg capsule 200 mg PO TID NEUROPATHY 08/16/24 Unknown History insulin lispro 100 unit/mL See Protocol subcut TID DIABETIC 08/16/24 Unknown History subcutaneous pen (Humalog KwikPen (U-100) Insulin) lurasidone 40 mg tablet 40 mg PO QHS MOOD 08/16/24 Unknown History potassium chloride 10 mEq 10 meq PO BID POTASSIUM 08/16/24 Unknown History capsule,extended release budesonide-formoterol HFA 160 1 puff inhalation DAILY COPD 09/16/24 Unknown History mcg-4.5 mcg/actuation aerosol inhaler (Symbicort) trazodone 100 mg tablet 100 mg PO QHS insomnia 09/16/24 Unknown History acetaminophen 500 mg tablet 1,000 mg PO TID PAIN 01/05/25 Unknown History lactulose 10 gram/15 mL oral 40 g PO DAILY 01/05/25 Unknown History solution magnesium hydroxide 400 mg/5 mL 30 ml PO DAILY PRN constipation 01/05/25 Unknown History oral suspension (Dulcolax (magnesium hydroxide)) mecobalamin (vitamin B12) 500 mcg 500 mcg PO DAILY 01/05/25 Unknown History chewable tablet cefdinir 300 mg capsule 300 mg PO BID #14 caps 01/06/25 Unknown Rx torsemide 10 mg tablet 10 mg PO DAILY #1 TAB 01/06/25 Unknown Rx ciprofloxacin HCl 250 mg tablet 250 mg PO BID 7 days #14 tabs 03/12/25 Unknown Rx (Cipro) Allergy/AdvReac Type Severity Reaction Status Date / Time ibuprofen (From Nuprin) Allergy Unknown Verified 03/11/25 22:25 Family History Mother Diabetes Father Cirrhosis of liver Alcoholism Surgical History History of incision and drainage History of embolic filter insertion History of right inguinal hernia repair H/O colectomy History of repair of inguinal hernia History of bladder surgery History of tonsillectomy and adenoidectomy History of right inguinal hernia repair S/P AVR (aortic valve replacement) Social History housing: [facility] Smoking Status: Former smoker how long ago did patient quit smoking: Quit ~ 20 yrs prior, smoked age 15 until quit ~ 2 ppd. alcohol intake: never substance use type: does not use ROS ROS ED Constitutional Constitutional ED: Reports other Details: Reports feeling lightheaded/dizzy ; Denies chills or fever(s) ENT ENT ED: Denies sore throat Cardiovascular Cardiovascular: Denies chest pain Respiratory/Chest Respiratory/Chest: Reports dyspnea; Denies cough Gastrointestinal Gastrointestinal: Reports abdominal pain and constipation; Denies nausea or vomiting Genitourinary Genitourinary ED: Reports other Details: Indwelling Cohen catheter?does not know if he has had any change in his urine output Musculoskeletal Musculoskeletal: Denies arthralgias or myalgias Integumentary Reports other Details: chronic wound to the right calf- lateral Neurologic Neurologic: Denies headache(s) or paresthesias Psychiatric Psychiatric: Reports other Details: increased agitation Hematologic/Lymphatic Hematologic/Lymphatic: Reports easy bleeding, easy bruising and other Details: On Eliquis EXAM Physical Exam Const Vital Signs: 03/11/25 22:25 03/11/25 22:32 03/11/25 23:32 Temperature 97.9 F 97.9 F 97.9 F Temperature Source Oral Oral Oral Pulse Rate 54 L 54 L 56 L Pulse Rate [Lying] Pulse Rate [Sitting (for 1 minute prior to obtaining)] Respiratory Rate 14 14 16 Blood Pressure 143/46 H 143/46 H 134/78 H Blood Pressure [Lying] Blood Pressure [Sitting (for 1 minute prior to obtaining)] Blood Pressure Mean 78 78 96 Blood Pressure Mean [Lying] Blood Pressure Mean [Sitting (for 1 minute prior to obtaining)] Pulse Ox 99 99 98 Oxygen Delivery Method Room Air Room Air Room Air 03/12/25 01:00 03/12/25 02:00 03/12/25 03:00 Temperature 97.9 F 97.9 F 97.6 F L Temperature Source Oral Oral Oral Pulse Rate 52 L 51 L 59 L Pulse Rate [Lying] Pulse Rate [Sitting (for 1 minute prior to obtaining)] Respiratory Rate 13 18 18 Blood Pressure 123/73 H 123/60 H 142/73 H Blood Pressure [Lying] Blood Pressure [Sitting (for 1 minute prior to obtaining)] Blood Pressure Mean 89 81 96 Blood Pressure Mean [Lying] Blood Pressure Mean [Sitting (for 1 minute prior to obtaining)] Pulse Ox 97 98 98 Oxygen Delivery Method Room Air Room Air Room Air 03/12/25 03:46 03/12/25 04:00 03/12/25 04:00 Temperature 97.8 F Temperature Source Pulse Rate 56 L 54 L Pulse Rate [Lying] 52 L Pulse Rate [Sitting (for 1 minute prior to obtaining)] 53 L Respiratory Rate 13 16 Blood Pressure 158/76 H 150/79 H Blood Pressure [Lying] 139/80 H Blood Pressure [Sitting (for 1 minute prior to obtaining)] 158/76 H Blood Pressure Mean 103 102 Blood Pressure Mean [Lying] 99 Blood Pressure Mean [Sitting (for 1 minute prior to obtaining)] 103 Pulse Ox 98 99 Oxygen Delivery Method Room Air Positive well nourished and well developed General Appearance ED: well developed HEENT Reports moist mucous membranes Eyes PERRL and EOMs intact bilaterally General Eye ED: Negative for scleral icterus Neck supple and no JVD Chest Wall inspection of chest normal and palpation of chest normal Resp normal respiratory effort Auscultation: diminished lung sounds; Negative for rhonchi or wheezes Cardio regular rhythm and no murmurs Rate: bradycardia GI normal to inspection, nondistended, normoactive bowel sounds Auscultation: normoactive bowel sounds Palpation: soft and tender suprapubic and other (Mild tenderness to the lower abdomen diffusely) Narrative: Cohen catheter in place Extremity General Extremety ED: Negative for edema General Extremity: Negative for edema Neuro oriented x3 Neuro Narrative: Generally weak but moving all extremities. No facial droop or slurred speech present. Sensorium / Orientation: alert Motor Exam: general weakness Psych Psych Narrative: Slightly withdrawn, agitated with nursing staff Skin Skin Narrative: Chronic appearing wound with some slight drainage to the right lateral calf. No surrounding erythema or fluctuance. MDM MDM MDM Narrative Medical decision making narrative: Patient is a 69-year-old male with history of dementia, chronic anticoagulation, insulin-dependent diabetes mellitus and chronic indwelling Cohen catheter presenting for increased agitation at his nursing facility. Differential includes is not limited to behavioral disturbance associate with dementia, VALENTIN, metabolic encephalopathy, intracranial hemorrhage, urinary tract infection, pneumonia, ACS, VALENTIN, electrolyte derangement and dehydration. Patient does report constipation however he does not report any nausea or vomiting. Abdominal exam is benign with no tenderness. Lower suspicion for obstruction given these findings. Abdominal series with chest x-ray is obtained which shows fecal residue in the rectum and gas throughout the GI tract with no obstructive pattern. Chest x-ray does not show any acute cardiopulmonary process. This is reviewed by myself as well as radiology. CT of the brain does not show any acute intracranial process and specifically no signs of hemorrhage or mass effect. EKG shows sinus bradycardia with first-degree AV block however intermittently on telemetry patient does appear to be in atrial flutter with 41 conduction (does have a history of this). Patient is given a 500 cc bolus. CBC does show mild anemia hemoglobin 10.7 however this appears to be his baseline. He does not have a leukocytosis. BMP shows mild elevation of potassium of 5.3 however he does not have acute EKG changes consistent with hyperkalemia, suspect there is a component of hemolysis. High-sensitivity troponin is elevated at 50 however repeat is 50 and then 46 and I suspect this is the patient's baseline. He is not complaining of chest pain and does not have ischemic changes on his EKG. His Cohen catheter initially was not not draining and had to be switched. Patient became quite upset about being switched stating that he would be allowed to walk around at his facility since we do not have the bag flaps on them. His urine however did show positive nitrates, greater than 100 white blood cells and 3+ bacteria. Prior urine cultures are almost always positive with Proteus Mirabilis and I suspect he is chronically colonized with that however he also most recently grew out Pseudomonas aeruginosa. This was on 01/05/2025 and at that time patient was admitted for similar presentation of altered mental status and increased agitation however it seemed to be more severe and at that time also had VALENTIN. Orthostatics from laying and sitting are obtained however patient refuses to stand. Patient is intermittently obstinate and refuses to cooperate in the emergency room. Patient is given a soapsuds enema with minimal results. He started on ciprofloxacin which his prior urine culture Pseudomonas was sensitive to. We attempted to give first dose in the emergency room however patient refused and then acted like he was sleeping. Patient intermittently however will talk to as it is completely alert and oriented so I do not think that he is suffering an acute encephalopathy at this time. At this time I do not think patient requires admission and so she is already in a custodial facility. Will be started on antibiotics and urine cultures pending. During nursing reports staff made it sound like this is more of his baseline as far as behavior. In addition they state he is actually only not had a bowel movement for 3 days but it is common for him to complete how long it has been since he has had a bowel movement. They will start him on a bowel regiment in the morning for this. Lab Data Attestation: I reviewed the patient's lab results. Labs: Laboratory Results - last 24 hr 03/11/25 03/12/25 03/12/25 23:06 01:10 02:45 WBC 5.1 RBC 4.02 L Hgb 10.7 L Hct 34.4 L MCV 85.6 MCH 26.6 L MCHC 31.1 L RDW Std Deviation 50.6 H RDW Coeff of Carlito 15.9 H Plt Count 171 MPV 12.4 H Immature Gran % (Auto) 0.200 Neut % (Auto) 49.2 Lymph % (Auto) 27.5 [place] % (Auto) 17.2 H Eos % (Auto) 5.1 H Baso % (Auto) 0.8 Absolute Neuts (auto) 2.5 Absolute Lymphs (auto) 1.39 Nucleated RBC % 0 PT 16.1 H INR 1.3 APTT 38.0 H Sodium 138 Potassium 5.3 H Chloride 104 Carbon Dioxide 24.3 Anion Gap 10 BUN 29 H Creatinine 1.17 Estim Creat Clear Calc 81.96 Est GFR (MDRD) Non-Af 67 BUN/Creatinine Ratio 24.9 H Glucose 103 H Calcium 9.2 Total Bilirubin 0.22 AST 25 ALT 18 Alkaline Phosphatase 75 Ammonia 17.6 Troponin T High Sens 50 H Troponin T Hi Sens 2 Hr 50 H Troponin T Hi Sens 4Hr Total Protein 6.4 Albumin 3.5 Globulin 2.9 Albumin/Globulin Ratio 1.2 Lipase 49 Urine Color Yellow Urine Clarity Cloudy Urine pH 6.5 Ur Specific Sully 1.010 Urine Protein 30 H Urine Glucose (UA) Normal Urine Ketones Negative Urine Occult Blood 250 H Urine Nitrite Positive H Urine Bilirubin Negative Urine Urobilinogen Normal Ur Leukocyte Esterase 500 H Urine RBC 10-25 SEEN Urine WBC >100 SEEN Ur Squamous Epith Cells 0-5 SEEN Urine Bacteria 3+ Urine Mucus 0 SEEN 03/12/25 03:08 WBC RBC Hgb Hct MCV MCH MCHC RDW Std Deviation RDW Coeff of Carlito Plt Count MPV Immature Gran % (Auto) Neut % (Auto) Lymph % (Auto) [place] % (Auto) Eos % (Auto) Baso % (Auto) Absolute Neuts (auto) Absolute Lymphs (auto) Nucleated RBC % PT INR APTT Sodium Potassium Chloride Carbon Dioxide Anion Gap BUN Creatinine Estim Creat Clear Calc Est GFR (MDRD) Non-Af BUN/Creatinine Ratio Glucose Calcium Total Bilirubin AST ALT Alkaline Phosphatase Ammonia Troponin T High Sens Troponin T Hi Sens 2 Hr Troponin T Hi Sens 4Hr 46 H Total Protein Albumin Globulin Albumin/Globulin Ratio Lipase Urine Color Urine Clarity Urine pH Ur Specific Sully Urine Protein Urine Glucose (UA) Urine Ketones Urine Occult Blood Urine Nitrite Urine Bilirubin Urine Urobilinogen Ur Leukocyte Esterase Urine RBC Urine WBC Ur Squamous Epith Cells Urine Bacteria Urine Mucus Radiography Diagnostic Testing: Clinical Impression(s) from Imaging Studies Brain CT 03/11/25 22:51 IMPRESSION: No intracerebral or extra-axial hemorrhage. No acute cerebrovascular insult. If clinical symptoms persist, further evaluation with MRI may be considered as clinically warranted. Unremarkable non-enhanced CT study for the brain. No interval changes since the last study. [facility] 03/11/25 23:45 IMPRESSION: Mild amount of fecal residue in the large bowels. Mild diffuse gaseous dilatation of the remaining bowels. Reading Location: [place] [id number] Rhythm Strip Rhythm Strip: Sinus Rhythm Rate: 55 Ectopy: None EKG Initial EKG: Attestation: I personally reviewed and interpreted this EKG as follows: Interpretation: Sinus Bradycardia Comments: Sinus bradycardia with prescribing block with a TN interval of 212 Normal axis Normal QRS Normal ST segments Prior EKG tracings: available for review Prior: Changed (Patient has reversal of T wave inversions in V5 and V6 compared to EKG on 02/04/2025) Discharge Plan Triage Chief Complaint: Confusion ED Provider: Malinda Ho Dx/Rx/DC Orders Clinical Impression: Catheter-associated urinary tract infection, Dementia with behavioral disturbance, Constipation Instructions: ED Constipation (Adult), ED Bladder Infection, Male (Adult) Prescriptions: New ciprofloxacin HCl [Cipro] 250 mg tablet 250 mg PO BID 7 Days Qty: 14 0RF No Action tamsulosin 0.4 mg capsule 0.4 mg PO QHS aspirin 81 MG tablet,delayed release (DR/EC) 81 mg PO DAILY atorvastatin 20 mg tablet 20 mg PO QHS amlodipine 5 mg tablet 5 mg PO DAILY Eliquis 5 mg tablet 5 mg PO BID melatonin 3 mg tablet 6 mg PO QHS mecobalamin (vitamin B12) 500 mcg tablet,chewable 500 mcg PO DAILY lactulose 10 gram/15 mL solution 40 g PO DAILY magnesium hydroxide [Dulcolax (magnesium hydroxide)] 400 mg/5 mL suspension 30 ml PO DAILY PRN (Reason: constipation) acetaminophen 500 mg tablet 1,000 mg PO TID torsemide 10 mg tablet 10 mg PO DAILY Qty: 1 0RF cefdinir 300 mg capsule 300 mg PO BID Qty: 14 0RF insulin glargine [Lantus Solostar U-100 Insulin] 100 unit/mL (3 mL) insulin pen 23 unit subcut QHS donepezil 5 mg tablet 5 mg PO QHS gabapentin 100 mg capsule 200 mg PO TID insulin lispro [Humalog KwikPen Insulin] 100 unit/mL insulin pen See Protocol subcut TID Protocol: 6. Sliding Scale Insulin Custom Condition: 151-200 Dose/Route: 2 UNITS Condition: 201-250 Dose/Route: 4 UNITS Condition: 251-300 Dose/Route: 6 UNITS Condition: 301-350 Dose/Route: 8 UNITS Condition: 351-400 Dose/Route: 10 UNITS Protocol Text: Custom Sliding Scale Rx Instructions: sliding scale lurasidone 40 mg tablet 40 mg PO QHS Rx Instructions: must administer with food (at least 350 calories) potassium chloride 10 mEq capsule, extended release 10 meq PO BID budesonide-formoterol [Symbicort] 160-4.5 mcg/actuation HFA aerosol inhaler 1 puff inhalation DAILY trazodone 100 mg tablet 100 mg PO QHS Primary Care Provider: Kathleen Herzog Referrals: Kathleen Herzog MD [Primary Care Provider] - Activity Restrictions/Additional Instructions: Jadon likely has chronic colonization of his Cohen catheter/urine however will be treated for urinary tract infection. He has been prescribed ciprofloxacin. Besides that his workup was consistent with constipation. His lab work was normal including his white blood cell count, kidney function, CT of the brain. He was given an enema with no significant results. He needs aggressive oral therapy with his lactulose and magnesium for his constipation. If he worsens, develops fever or if you have further concerns please return to the emergency room. Print Language: Malaysian Disposition Disposition: Home, Self Care Discharge Date/Time: 03/12/25 04:31
[2025-03-11] MEDS: 0.9% Normal Saline (500mL Bag) 500 ML 999 ML IV (23:19)
[2025-03-11 23:23] LABS: Prothrombin Time (Protime)PT. 16.1 SECONDS (11.7-14.9)
[2025-03-11 23:24] LABS: Partial Thromboplast Time 38.0 Seconds (24.1-36.2)
[2025-03-11 23:32] VITALS: BP 134/78; PULSE 56; RESP 16; TEMP 36.6; O2SAT 98
--- NOTE | 2025-03-11 23:45 | RAD_ITS ---
PROCEDURE: ACUTE ABDOMEN INC CHEST 03/11/2025 REASON FOR EXAM: CONSTIPATION, ABD PAIN, SOB TECHNIQUE: Procedure Code: RADABDCA Modality: DX Procedure: ACUTE ABDOMEN INC CHEST COMPARISON: CT scan on 10/10/2024. FINDINGS: Mild amount of fecal residue in the large bowels. Mild diffuse gaseous dilatation of the remaining bowels. There is no demonstrated free abdominal air. Normal visualized liver. Normal visualized spleen. Normal visualized kidneys. The soft tissue structures of the pelvis are unremarkable. Diffuse spondylosis. Unremarkable median sternotomy wires. The lungs are expanded. There is no demonstrated parenchymal abnormality. There is no demonstrated pleural abnormality. Enlarged cardiac silhouette. Normal mediastinum and stacey. Normal visualized pulmonary arteries. Atheromatous plaques of the visualized aortic arch and descending thoracic aorta. Diffuse spondylosis of the visualized thoracic spine. Normal visualized ribs, clavicles. Degenerative joint disease. RAD/Acute Abdomen Inc Chest IMPRESSION: Mild amount of fecal residue in the large bowels. Mild diffuse gaseous dilatation of the remaining bowels. Reading [facility]
[2025-03-11 23:51] LABS: Ammonia 17.6 umol/L (16-60); Lipase 49 U/L (13-75)
[2025-03-11 23:55] LABS: AST(SGOT) 25 U/L (<=37); Alanine Aminotransfer ALT/SGPT 18 U/L (<=46); Albumin, Serum 3.5 g/dL (3.4-4.8); Alkaline Phosphatase 75 U/L (40-129); Anion Gap 10 (5-15); BUN 29 mg/dL (4-19); BUN/Creat Ratio 24.9 RATIO (10-20); Calcium,Total 9.2 mg/dL (7.6-11.0); Carbon Dioxide 24.3 mmol/L (21.0-32.0); Chloride 104 mmol/L (98-108); Estimated Creatinine Clearance 81.96 ml/min (50-250); Globulin 2.9 g/dL (2.2-4.2); Glucose 103 mg/dL (70-99); Potassium 5.3 mmol/L (3.3-5.1)
[2025-03-12 00:14] LABS: Troponin T High Sensitivity 50 ng/L (<=22)
[2025-03-12 01:00] VITALS: BP 123/73; PULSE 52; RESP 13; TEMP 36.6; O2SAT 97
[2025-03-12 01:44] LABS: Troponin T High Sens 2 HR 50 ng/L (<=22)
[2025-03-12 02:00] VITALS: BP 123/60; PULSE 51; RESP 18; TEMP 36.6; O2SAT 98
[2025-03-12 02:53] LABS: Mucous, Urine 0 SEEN /hpf (<or=2+)
[2025-03-12 02:55] LABS: Color, Urine Yellow (Yellow); Glucose, Dipstick Normal (Normal); Ketone-Dipstick Negative (Negative); Leukocyte Esterase-Dipstick 500 /ul (Negative); Nitrite-Dipstick Positive (Negative); Occult Blood-Urine 250 /ul (Negative); Protein-Dipstick 30 mg/dl (Negative); Specific Gravity, Urine 1.010 (1.002-1.030); Urine Bilirubin Dipstick Negative (Negative)
[2025-03-12 03:00] VITALS: BP 142/73; PULSE 59; RESP 18; TEMP 36.4; O2SAT 98
[2025-03-12 03:12] LABS: Red Blood Cells-Urine 10-25 SEEN /hpf (0-5); Squamous Epithelial Cells - UA 0-5 SEEN /hpf (0-5)
[2025-03-12 03:30] LABS: Troponin T High Sens 4 HR 46 ng/L (<=22)
[2025-03-12 03:46] VITALS: BP 139/80; BP 158/76; PULSE 52; PULSE 53
[2025-03-12 04:00] VITALS: BP 150/79; BP 158/76; PULSE 54; PULSE 56; RESP 13; RESP 16; TEMP 36.6; O2SAT 98; O2SAT 99
--- NOTE | 2025-03-12 04:29 | ED.RN ---
Report called to Steve Roach.
== END 2025-03-12 04:31 | disposition home or self-care (01) ==
PROVIDERS: Emergency Provider Emergency Medicine; PCP Internal Medicine; Visit Provider Emergency Medicine
DX: T83.511A Infection and inflammatory reaction due to indwelling urethral catheter, initial encounter (principal); N18.4 Chronic kidney disease, stage 4 (severe); I50.9 Heart failure, unspecified; I13.0 Hypertensive heart and chronic kidney disease with heart failure and stage 1 through stage 4 chronic kidney disease, or unspecified chronic kidney disease; F03.918 Unspecified dementia, unspecified severity, with other behavioral disturbance; J44.9 Chronic obstructive pulmonary disease, unspecified; E11.42 Type 2 diabetes mellitus with diabetic polyneuropathy; E11.22 Type 2 diabetes mellitus with diabetic chronic kidney disease; K59.00 Constipation, unspecified; Z86.711 Personal history of pulmonary embolism; Z86.718 Personal history of other venous thrombosis and embolism; Z87.891 Personal history of nicotine dependence; X58.XXXA Exposure to other specified factors, initial encounter
CPT/HCPCS: 51702; 70450; 74022; 80053; 81001; 82140; 83690; 84484; 85025; 85610; 85730; 87086; 87631; 93005; 96360; 99285; A4216

== ENCOUNTER 2025-04-04 10:30 | Outpatient (RCR) | payer MEDICARE, SELFPAY ==
[2025-03-14 08:54] VITALS: BP 150/80; PULSE 61; RESP 18; TEMP 36
--- NOTE | 2025-03-14 12:16 | PCM.WC.PN ---
History of Present Illness Date of Service: 03/14/25 Chief Complaint: Right buttock ulceration History of Wound: Patient is 69-year-old male chronic ulceration to the lateral right leg stable with no sign of infection. Progress of Wound: Stable slow healing full-thickness wound lateral right leg Subjective Subjective Patient is a 69-year-old diabetic male presenting to wound care center today for follow-up evaluation of full-thickness wound to the lateral right leg. Patient has been getting dressing changes by [facility] facility. He is wearing compression wraps during today's visit. Unfortunately the patient is suffering from a UTI and taking Cipro 250 mg for the next 10 days. Overall his leg is improving. He denies trauma. He denies constitutional symptoms. No other pedal complaints at this time. Objective Data Objective Data Vital Signs: Vital Signs Temp Pulse Resp BP O2 Del Method 96.8 F L 61 18 150/80 H Room Air 03/14/25 08:54 03/14/25 08:54 03/14/25 08:54 03/14/25 08:54 03/14/25 08:54 Oxygen Delivery Method Room Air Physical Exam Narrative Vascular: DP and PT pulses are palpable to the right lower extremity. Nonpitting edema appreciated to the right lower extremity. Skin temperature gradient is warm to warm from proximal ankles to distal digit. No focal increase appreciated. Evidence of varicosities appreciated left lower extremity. Neurological: Light touch intact. Patient response to painful stimuli. Protective sensation is diminished. Dermatological: Full-thickness ulceration to the lateral aspect of the right leg measuring 7.8 x 1.6 x 0.1 cm. Wound base is granular. No malodor or probe to bone. No sign of infection. Excisional debridement of the right leg lateral aspect full-thickness ulceration down to and including subcutaneous tissue with a number 5 mm dermal curette without incident. Predebridement measurement was 7.5 x 1.3 x 0.1 cm. Postdebridement measurement was 7.8 x 1.6 x 0.1 cm. Musculoskeletal: No pain to palpation to full-thickness ulceration. No pain with calf compression. Debridement Note Debridement Note Debridement Free Text: Excisional debridement of the right leg lateral aspect full-thickness ulceration down to and including subcutaneous tissue with a number 5 mm dermal curette without incident. Predebridement measurement was 7.5 x 1.3 x 0.1 cm. Postdebridement measurement was 7.8 x 1.6 x 0.1 cm. 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 Any new allergies or adverse reactions No Had a fall/change in ADL's that may No increase risk of falls Signs or symptoms of abuse and/or No neglect since last visit Have you been in the hospital since your Yes last visit? Has dressing in place as prescribed Yes Has compression in place as prescribed Yes Has offloadiing in place as prescribed N/A Experienced any changes in pain level or No management Left Footwear Regular Shoe Right Footwear Regular Shoe Pain Scale: 0-10 Numeric Is Patient Pain Free? Yes - Nurse 1 - General Ulcer Measurement Start: 03/14/25 08:54 Freq: Status: Active Protocol: Activity Type Activity Date Activity User E-sign Co-sign Detail Recorded Client Recorded Date Recorded By Document 03/14/25 08:54 HANNAH [id number] 03/14/25 09:05 03/14/25 08:54 Wound Center Nurse 1 #5 RT LAT LE POST-OP -Current Size (cm) - Length 6.7 -Current Size (cm) - Width 1.8 -Current Size (cm) - Depth 0.1 -Total Square Cm 12.06 -Date of Last Picture (Recall this 03/14/25 field) -Epithelialization Medium 34-66% -Exudate Amt Medium -Exudate Type Serosanguineous -Wound Margin Distinct, Outline Attached -Granulation Amt Large (67-100%) -Granulation Quality Red -Necrosis Amt Small (1-33%) -Necrotic Tissue Type Adherent Slough -Texture (Mariza-wound Skin Appearance) Assessed, Scarring -Moisture (Mariza-wound Skin Appearance) Assessed -Color (Mariza-wound Skin Appearance) Assessed -Temperature (Mariza-wound Skin No Abnormality Appearance) (Pt Warm) -Tenderness on Palpation (Mariza-wound No Skin Appearance) -Ulcer Cleansing Soap and Water -Foul Odor after Cleansing No -Anesthetic Used 5% Lidocaine Gel WC - Nurse 2 - General Ulcer CM Notes Start: 03/14/25 08:54 Freq: Status: Active Protocol: Activity Type Activity Date Activity User E-sign Co-sign Detail Recorded Client Recorded Date Recorded By Document 03/14/25 09:19 TALI [id number] 03/14/25 09:23 TALI 03/14/25 09:19 Wound Center Nurse 2 -Time 09:22 -Correct Patient Yes -Correct Side, Site, Position Yes -Correct Procedure Yes -Procedure Performed Yes -Type of Procedure Debridement -Clinical Debridement Subcutaneous -Tissue Removed Subcutaneous -Post Debridement (cm) - Length 7 -Post Debridement (cm) - Width 1.6 -Post Debridement (cm) - Depth 0.1 -Total Square (Post) (cm) 11.2 -Area of Debridement (cm) - Length 7 -Area of Debridement (cm) - Width 1.6 -Total Square (Area) (cm) 11.2 -Tunneling No -Undermining/Tunneling No -Circular Undermining No -Wound/Ulcer Outcome Not Healed -Ulcer Cleansing Rinsed/ Irrigated with Saline -Foul Odor after Cleansing No -Bioengineered Tissue No -Bleeding Controlled with Pressure -Treatment Response Procedure Tolerated Well -Offloading No -Debridement - Subq, 1st 20sq cm Yes Pain Scale: 0-10 Numeric Is Patient Pain Free? Yes - Nurse 3 - General Ulcer D/C NN Start: 03/14/25 08:54 Freq: Status: Active Protocol: Activity Type Activity Date Activity User E-sign Co-sign Detail Recorded Client Recorded Date Recorded By Document 03/14/25 09:31 HANNAH [id number] 03/14/25 09:32 KW 03/14/25 09:31 Wound Care Center Nurse 3 #5 RT LAT LE POST-OP -Primary Dressing Applied NonAdherent Contact Layer, Promogran Page Matter -Primary Dressing Covered/Secured with Dry Gauze & Roll Gauze, Secured with Tape -Promogran Page Matter 1 BLE -Compression Wrap Celso Wrap -Other 6 in Pain Scale: 0-10 Numeric Is Patient Pain Free? Yes WC - Visit Discharge Discharge Condition Stable Ambulatory Status Ambulatory Medication Reconcilliation completed & No provided to patient/care provider Clinical Summary of Care Provided Yes Assessment/Plan Assessment/Plan (1) Non-pressure chronic ulcer of 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: CODE(S): L97.212 - Non-pressure chronic ulcer of 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 PLAN: Patient was examined and evaluated. All findings were discussed with the patient. All questions were answered to the patient's satisfaction. Excisional debridement of the right leg lateral aspect full-thickness ulceration down to and including subcutaneous tissue with a number 5 mm dermal curette without incident. Predebridement measurement was 7.5 x 1.3 x 0.1 cm. Postdebridement measurement was 7.8 x 1.6 x 0.1 cm. The area was wiped clean and patted dry. Moist Page was applied followed by Adaptic dry sterile dressing and Celso wrap to the bilateral lower extremity. Patient will continue every other day dressing change. He is to elevate whenever at rest. He is to continue strict blood sugar control. Follow-up at the wound care center with Dr. Shannon in 1 week.
--- NOTE | 2025-03-15 09:25 | WC ---
PHOTO- RIGHT LEG CLUSTER 03/14/25
[2025-04-04 10:59] VITALS: BP 153/61; PULSE 53; RESP 14; TEMP 36.2
--- NOTE | 2025-04-04 11:32 | WC ---
Pt refused to have any treatment applied and left room. Dr Shannon was informed. Pt returned and would allow me to apply guaze and kerlex only.
--- NOTE | 2025-04-04 12:27 | PCM.WC.PN ---
History of Present Illness Date of Service: 04/04/25 Chief Complaint: Right buttock ulceration History of Wound: Patient is 69-year-old male chronic ulceration to the lateral right leg stable with no sign of infection. Progress of Wound: Stable slow healing full-thickness wound lateral right leg Subjective Subjective Patient is a 69-year-old diabetic male presented wound care center today follow-up evaluation of full-thickness wound to the lateral right leg. Patient is not getting compression at his facility and states that they never did get wrapped. He has not missed the last 1-2 appointments due to transportation issues. He is unhappy with his care at the facility. Denies trauma. Denies constitutional symptoms. No other pedal complaints at this time. Objective Data Objective Data Vital Signs: Vital Signs Temp Pulse Resp BP O2 Del Method 97.1 F L 53 L 14 153/61 H Room Air 04/04/25 10:59 04/04/25 10:59 04/04/25 10:59 04/04/25 10:59 03/14/25 08:54 Oxygen Delivery Method Room Air Physical Exam Narrative Vascular: DP and PT pulses are palpable to the right lower extremity. Nonpitting edema appreciated to the right lower extremity. Skin temperature gradient is warm to warm from proximal ankles to distal digit. No focal increase appreciated. Evidence of varicosities appreciated left lower extremity. Neurological: Light touch intact. Patient response to painful stimuli. Protective sensation is diminished. Dermatological: Full-thickness ulceration to the lateral aspect of the right leg measuring 4.2 x 1.3 x 0.1 cm wound base is granular. No malodor or probe to bone. No sign of infection. Excisional debridement of the right leg lateral aspect full-thickness ulceration down to and including subcutaneous tissue with a number 5 mm dermal curette without incident. Predebridement measurement was sanguinous crust. Postdebridement measurement was 4.2 x 1.3 x 0.1 cm. Musculoskeletal: No pain to palpation to full-thickness ulceration. No pain with calf compression. Debridement Note Debridement Note Debridement Free Text: Excisional debridement of the right leg lateral aspect full-thickness ulceration down to and including subcutaneous tissue with a number 5 mm dermal curette without incident. Predebridement measurement was sanguinous crust. Postdebridement measurement was 4.2 x 1.3 x 0.1 cm. Post-Debridement Measurements and Additional Note: Post-Debridement Measurements/Treatment - Nurse 1 - General Ulcer Assessment Start: 03/14/25 08:54 Freq: Status: Active Protocol: GALE Activity Type Activity Date Activity User E-sign Co-sign Detail Recorded Client Recorded Date Recorded By Document 03/14/25 08:54 KW [id number] 03/14/25 09:05 KW Document 04/04/25 10:59 ML [id number] 04/04/25 11:00 ML 03/14/25 04/04/25 08:54 10:59 WC - Today's Visit Information Type of service Follow-up Visit Follow-up Visit (Physician/RICE FARMWORKER (Physician/RICE FARMWORKER ) ) Arrival Mode Ambulatory Ambulatory Patient Identification Verified (Name & Yes Yes ) Patient Requires Transmission-Based No Precautions Vital Signs Temperature (97.8 F-99.1 F) 96.8 F L 97.1 F L Temperature Source Temporal Temporal Pulse Rate (60-100) 61 53 L Pulse Location Monitor Monitor Respiratory Rate (12-18) 18 14 Respiratory rate source Observation Monitor Oxygen Delivery Method Room Air Blood Pressure (90/60-120/80) 150/80 H 153/61 H Blood Pressure Mean (mm Hg) 103 91 Source Monitor Monitor Position Semi-Fowlers Sitting Blood Pressure Location Left Arm Left Arm History Since Last Visit- (Skip if this is Patient's initial visit) Have you changed medications since your No No last visit? Any new allergies or adverse reactions No No Had a fall/change in ADL's that may No No increase risk of falls Signs or symptoms of abuse and/or No No neglect since last visit Have you been in the hospital since your Yes No last visit? Has dressing in place as prescribed Yes No Has compression in place as prescribed Yes No Has offloadiing in place as prescribed N/A No Experienced any changes in pain level or No No management Left Footwear Regular Shoe Right Footwear Regular Shoe Pain Scale: 0-10 Numeric Is Patient Pain Free? Yes Yes CODY - Nurse 1 - General Ulcer Measurement Start: 03/14/25 08:54 Freq: Status: Active Protocol: Activity Type Activity Date Activity User E-sign Co-sign Detail Recorded Client Recorded Date Recorded By Document 03/14/25 08:54 KW [id number] 03/14/25 09:05 KW Document 04/04/25 10:59 ML [id number] 04/04/25 11:00 ML 03/14/25 04/04/25 08:54 10:59 Wound Center Nurse 1 #5 RT LAT LE POST-OP -Current Size (cm) - Length 6.7 5 -Current Size (cm) - Width 1.8 1.5 -Current Size (cm) - Depth 0.1 0.1 -Total Square Cm 12.06 7.5 -Date of Last Picture (Recall this 03/14/25 field) -Epithelialization Medium 34-66% -Exudate Amt Medium Small -Exudate Type Serosanguineous -Wound Margin Distinct, Outline Attached -Granulation Amt Large (67-100%) Small (1-33%) -Granulation Quality Red -Slough/Fibrin Yes -Necrosis Amt Small (1-33%) None Present (0 %) -Necrotic Tissue Type Adherent Slough Adherent Slough -Texture (Mariza-wound Skin Appearance) Assessed, Assessed Scarring -Moisture (Mariza-wound Skin Appearance) Assessed Assessed -Color (Mariza-wound Skin Appearance) Assessed Assessed -Temperature (Mariza-wound Skin No Abnormality No Abnormality Appearance) (Pt Warm) (Pt Warm) -Tenderness on Palpation (Mariza-wound No No Skin Appearance) -Ulcer Cleansing Soap and Water Rinsed/ Irrigated with Saline -Foul Odor after Cleansing No No -Anesthetic Used 5% Lidocaine 5% Lidocaine Gel Gel WC - Nurse 2 - General Ulcer CM Notes Start: 03/14/25 08:54 Freq: Status: Active Protocol: Activity Type Activity Date Activity User E-sign Co-sign Detail Recorded Client Recorded Date Recorded By Document 03/14/25 09:19 [id number] 03/14/25 09:23 Document 04/04/25 11:14 [id number] 04/04/25 11:16 03/14/25 04/04/25 09:19 11:14 Wound Center Nurse 2 #5 RT LAT LE POST-OP -Time 09:22 11:14 -Correct Patient Yes Yes -Correct Side, Site, Position Yes Yes -Correct Procedure Yes Yes -Procedure Performed Yes Yes -Type of Procedure Debridement Debridement -Clinical Debridement Subcutaneous Subcutaneous -Tissue Removed Subcutaneous Subcutaneous -Post Debridement (cm) - Length 7 4.2 -Post Debridement (cm) - Width 1.6 1.3 -Post Debridement (cm) - Depth 0.1 0.1 -Total Square (Post) (cm) 11.2 5.46 -Area of Debridement (cm) - Length 7 4.2 -Area of Debridement (cm) - Width 1.6 1.3 -Total Square (Area) (cm) 11.2 5.46 -Tunneling No No -Undermining/Tunneling No No -Circular Undermining No No -Wound/Ulcer Outcome Not Healed Not Healed -Ulcer Cleansing Rinsed/ Rinsed/ Irrigated with Irrigated with Saline Saline -Foul Odor after Cleansing No No -Bioengineered Tissue No No -Bleeding Controlled with Pressure Pressure -Treatment Response Procedure Procedure Tolerated Well Tolerated Well -Offloading No No -Debridement - Subq, 1st 20sq cm Yes Yes Pain Scale: 0-10 Numeric Is Patient Pain Free? Yes Yes - Nurse 3 - General Ulcer D/C NN Start: 03/14/25 08:54 Freq: Status: Active Protocol: Activity Type Activity Date Activity User E-sign Co-sign Detail Recorded Client Recorded Date Recorded By Document 03/14/25 09:31 [id number] 03/14/25 09:32 03/14/25 09:31 Wound Care Center Nurse 3 #5 RT LAT LE POST-OP -Primary Dressing Applied NonAdherent Contact Layer, Promogran Page Matter -Primary Dressing Covered/Secured with Dry Gauze & Roll Gauze, Secured with Tape -Promogran Page Matter 1 BLE -Compression Wrap Celso Wrap -Other 6 in Pain Scale: 0-10 Numeric Is Patient Pain Free? Yes WC - Visit Discharge Discharge Condition Stable Ambulatory Status Ambulatory Medication Reconcilliation completed & No provided to patient/care provider Clinical Summary of Care Provided Yes Assessment/Plan Assessment/Plan (1) Non-pressure chronic ulcer of 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: CODE(S): L97.212 - Non-pressure chronic ulcer of 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 PLAN: Patient was examined and evaluated. All findings were discussed with the patient. All questions were answered to the patient's satisfaction. Excisional debridement of the right leg lateral aspect full-thickness ulceration down to and including subcutaneous tissue with a number 5 mm dermal curette without incident. Predebridement measurement was sanguinous crust. Postdebridement measurement was 4.2 x 1.3 x 0.1 cm. The area was wiped clean and patted dry. During the nursing visit the patient refused to be dressed and wrapped and walked out of the office against the nursing and doctors orders. Attempt to discussed with the patient in the waiting room was unsuccessful. Orders were sent back to the facility to dressed with moist Page dry sterile dressing and compression wrap/Celso bandages to the bilateral lower extremity. Patient will continue every other day dressing change. He is to elevate whenever at rest. He is to continue strict blood sugar control. Follow-up at the wound care center with Dr. Shannon in 2 week.
--- NOTE | 2025-04-05 14:59 | WC ---
PHOTO-RIGHT LEG CLUSTER 04/03/25
== END 2025-04-10 23:59 | disposition home or self-care (01) ==
LOC: WC 10:30
PROVIDERS: PCP Internal Medicine; Referring Provider Surgery; Visit Provider Podiatrist Foot & Ankle Surgery
DX: L97.212 Non-pressure chronic ulcer of 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 (principal)
CPT/HCPCS: 11042

== ENCOUNTER 2025-04-25 13:15 | Outpatient (RCR) | payer MEDICARE, SELFPAY ==
[2025-04-18 10:36] VITALS: BP 118/61; PULSE 60; RESP 16; TEMP 36.7
--- NOTE | 2025-04-18 13:00 | PCM.WC.PN ---
History of Present Illness Date of Service: 04/18/25 Chief Complaint: Right buttock ulceration History of Wound: Patient is 69-year-old male chronic ulceration to the lateral right leg stable with no sign of infection. Progress of Wound: Stable full-thickness wound improvement to the lateral right leg. Subjective Subjective Patient is a 70-year-old diabetic male presenting to the wound care center today for follow-up evaluation of full-thickness wound to the lateral right leg. Patient has not been compliant with dressing changes and is not wearing compression to the bilateral lower extremity. He denies any drainage from the wound. He denies erythema. His blood sugars well-controlled. Denies trauma. Denies constitutional symptoms. No other pedal complaints at this time. Objective Data Objective Data Vital Signs: Vital Signs Temp Pulse Resp BP 98.1 F 60 16 118/61 04/18/25 10:36 04/18/25 10:36 04/18/25 10:36 04/18/25 10:36 Physical Exam Narrative Vascular: DP and PT pulses are palpable to the right lower extremity. Nonpitting edema appreciated to the right lower extremity. Skin temperature gradient is warm to warm from proximal ankles to distal digit. No focal increase appreciated. Evidence of varicosities appreciated left lower extremity. Neurological: Light touch intact. Patient response to painful stimuli. Protective sensation is diminished. Dermatological: Full-thickness ulceration to the lateral aspect of the right leg measuring 5.1 x 1.5 x 0.1 cm. Wound base is granular. No malodor or probe to bone. No sign of infection. Excisional debridement of the right leg lateral aspect full-thickness ulceration down to and including subcutaneous tissue with a number 5 mm dermal curette without incident. Predebridement measurement was 4.8 x 1.3 x 0.1 cm. Postdebridement measurement was 5.1 x 1.5 x 0.1 cm. Musculoskeletal: No pain to palpation to full-thickness ulceration. No pain with calf compression. Debridement Note Debridement Note Debridement Free Text: Excisional debridement of the right leg lateral aspect full-thickness ulceration down to and including subcutaneous tissue with a number 5 mm dermal curette without incident. Predebridement measurement was 4.8 x 1.3 x 0.1 cm. Postdebridement measurement was 5.1 x 1.5 x 0.1 cm. 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 Any new allergies or adverse reactions No Had a fall/change in ADL's that may No increase risk of falls Signs or symptoms of abuse and/or No neglect since last visit Have you been in the hospital since your No last visit? Has dressing in place as prescribed Yes Has compression in place as prescribed N/A Has offloadiing in place as prescribed N/A Experienced any changes in pain level or No management Pain Scale: 0-10 Numeric Is Patient Pain Free? Yes CODY - Nurse 1 - General Ulcer Measurement Start: 04/18/25 10:36 Freq: Status: Active Protocol: Activity Type Activity Date Activity User E-sign Co-sign Detail Recorded Client Recorded Date Recorded By Document 04/18/25 10:36 ZAKIA [id number] 04/18/25 10:43 CP 04/18/25 10:36 Wound Center Nurse 1 #5 RT LAT LE POST-OP -Current Size (cm) - Length 4 -Current Size (cm) - Width 1.5 -Current Size (cm) - Depth 0.1 -Total Square Cm 6.0 -Date of Last Picture (Recall this 04/18/25 field) -Epithelialization Small 1-33% -Exudate Amt Small -Exudate Type Serosanguineous -Wound Margin Flat & Intact -Granulation Amt Large (67-100%) -Granulation Quality Red -Necrosis Amt None Present (0 %) -Structure Exposed N/A -Texture (Mariza-wound Skin Appearance) No Abnormality -Moisture (Mariza-wound Skin Appearance) No Abnormality -Color (Mariza-wound Skin Appearance) No Abnormality -Temperature (Mariza-wound Skin No Abnormality Appearance) (Pt Warm) -Ulcer Cleansing Rinsed/ Irrigated with Saline -Foul Odor after Cleansing No -Anesthetic Used 5% Lidocaine Gel WC - Nurse 2 - General Ulcer CM Notes Start: 04/18/25 10:36 Freq: Status: Active Protocol: Activity Type Activity Date Activity User E-sign Co-sign Detail Recorded Client Recorded Date Recorded By Document 04/18/25 11:04 [id number] 04/18/25 11:05 04/18/25 11:04 Wound Center Nurse 2 -Time 11:04 -Correct Patient Yes -Correct Side, Site, Position Yes -Correct Procedure Yes -Procedure Performed Yes -Type of Procedure Debridement -Clinical Debridement Subcutaneous -Tissue Removed Subcutaneous -Post Debridement (cm) - Length 5.1 -Post Debridement (cm) - Width 1.5 -Post Debridement (cm) - Depth 0.1 -Total Square (Post) (cm) 7.65 -Area of Debridement (cm) - Length 5.1 -Area of Debridement (cm) - Width 1.5 -Total Square (Area) (cm) 7.65 -Tunneling No -Undermining/Tunneling No -Circular Undermining No -Wound/Ulcer Outcome Not Healed -Ulcer Cleansing Rinsed/ Irrigated with Saline -Foul Odor after Cleansing No -Bioengineered Tissue No -Bleeding Controlled with Pressure -Treatment Response Procedure Tolerated Well -Offloading No -Debridement - Subq, 1st 20sq cm Yes Pain Scale: 0-10 Numeric Is Patient Pain Free? Yes - Nurse 3 - General Ulcer D/C NN Start: 04/18/25 10:36 Freq: Status: Active Protocol: Activity Type Activity Date Activity User E-sign Co-sign Detail Recorded Client Recorded Date Recorded By Document 04/18/25 11:21 AK [id number] 04/18/25 11:25 AK 04/18/25 11:21 Wound Care Center Nurse 3 #5 RT LAT LE POST-OP -Ulcer Cleansing Rinsed/ Irrigated with Saline -Foul Odor after Cleansing No -Negative Pressure Wound Therapy N/A -Primary Dressing Applied Promogran Page Matter, Silicone Border Foam 4x4 -Other Dressing adaptic -Promogran Page Matter 1 -Silicone Border Foam 4x4 1 RLE -Tubular Bandage Single Layer -Size of Tubigrip Used Size D -Size D ($) 1 Pain Scale: 0-10 Numeric Is Patient Pain Free? Yes WC - Visit Discharge Discharge Condition Stable Ambulatory Status Wheelchair Transportation correction transport Medication Reconcilliation completed & No provided to patient/care provider Clinical Summary of Care Provided Yes Assessment/Plan Assessment/Plan (1) Non-pressure chronic ulcer of 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: CODE(S): L97.212 - Non-pressure chronic ulcer of 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 PLAN: Patient was examined and evaluated. All findings were discussed with the patient. All questions were answered to the patient's satisfaction. Excisional debridement of the right leg lateral aspect full-thickness ulceration down to and including subcutaneous tissue with a number 5 mm dermal curette without incident. Predebridement measurement was 4.8 x 1.3 x 0.1 cm. Postdebridement measurement was 5.1 x 1.5 x 0.1 cm. The right lower extremity was wiped clean and patted dry. Moist Page followed by dry sterile dressing and bilateral Tubigrip's were donned. Instruction to the correction are to do daily dressing changes and to ensure compression is intact to the patient's bilateral lower extremity. I educated the patient that compression is bird to getting his wound to heal and in this discussion patient states that he will not wear the compression due to it snagging on his chair as well as the nurses will not wrap his legs. Follow-up at the wound care center with Dr. Shannon in 1 week.
--- NOTE | 2025-04-19 09:29 | WC ---
PHOTO-RIGHT LEG CLUSTER 04/18/25
[2025-04-25 13:21] VITALS: BP 120/62; PULSE 58; RESP 16; TEMP 35.9
--- NOTE | 2025-04-25 13:50 | PCM.WC.PN ---
History of Present Illness Date of Service: 04/25/25 Chief Complaint: Right buttock ulceration History of Wound: Patient is 69-year-old male chronic ulceration to the lateral right leg stable with no sign of infection. Progress of Wound: Stable full-thickness wound improvement to the lateral right leg. Subjective Subjective Patient is a 70-year-old diabetic male presenting to wound care center today follow-up evaluation full-thickness wound to lateral right leg/calf. [facility] He is not wearing compression at this time. Blood sugar well-controlled. Denies trauma. Denies constitutional symptoms. No other pedal complaints at this time. Objective Data Objective Data Vital Signs: Vital Signs Temp Pulse Resp BP 96.6 F L 58 L 16 120/62 04/25/25 13:21 04/25/25 13:21 04/25/25 13:21 04/25/25 13:21 Physical Exam Narrative Vascular: DP and PT pulses are palpable to the right lower extremity. Nonpitting edema appreciated to the right lower extremity. Skin temperature gradient is warm to warm from proximal ankles to distal digit. No focal increase appreciated. Evidence of varicosities appreciated left lower extremity. Neurological: Light touch intact. Patient response to painful stimuli. Protective sensation is diminished. Dermatological: Full-thickness ulceration to the lateral aspect of the right leg/calf measuring 4.1 x 1.3 x 0.1 cm. Wound base is granular. No malodor or probe to bone. No sign of infection. Excisional debridement of the right leg/calf lateral aspect full-thickness ulceration down to and including subcutaneous tissue with a number 5 mm dermal curette without incident. Predebridement measurement was 3.8 x 1.2 x 0.1 cm. Postdebridement measurement was 4.1 x 1.3 x 0.1 cm. Musculoskeletal: No pain to palpation to full-thickness ulceration. No pain with calf compression. Debridement Note Debridement Note Debridement Free Text: Excisional debridement of the right leg/calf lateral aspect full-thickness ulceration down to and including subcutaneous tissue with a number 5 mm dermal curette without incident. Predebridement measurement was 3.8 x 1.2 x 0.1 cm. Postdebridement measurement was 4.1 x 1.3 x 0.1 cm. 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 (Physician/LOCOMOTIVE CRANE OPERATOR HELPER ) ) Arrival Mode Ambulatory Ambulatory Patient Identification Verified (Name & Yes Yes ) Patient Requires Transmission-Based No Precautions Vital Signs Temperature (97.8 F-99.1 F) 98.1 F 96.6 F L Temperature Source Temporal Temporal Pulse Rate (60-100) 60 58 L Pulse Location Monitor Monitor Respiratory Rate (12-18) 16 16 Respiratory rate source Observation Observation Blood Pressure (90/60-120/80) 118/61 120/62 Blood Pressure Mean (mm Hg) 80 81 Source Monitor Monitor Position Sitting Sitting Blood Pressure Location Left Arm Left Arm History Since Last Visit- (Skip if this is Patient's initial visit) Have you changed medications since your No Yes last visit? Any new allergies or adverse reactions No No Had a fall/change in ADL's that may No No increase risk of falls Signs or symptoms of abuse and/or No No neglect since last visit Have you been in the hospital since your No No last visit? Has dressing in place as prescribed Yes Yes Has compression in place as prescribed N/A No Has offloadiing in place as prescribed N/A N/A Experienced any changes in pain level or No No management Left Footwear Regular Shoe Right Footwear Regular Shoe Pain Scale: 0-10 Numeric Is Patient Pain Free? Yes Yes - Nurse 1 - General Ulcer Measurement Start: 04/18/25 10:36 Freq: Status: Active Protocol: Activity Type Activity Date Activity User E-sign Co-sign Detail Recorded Client Recorded Date Recorded By Document 04/18/25 10:36 CP [id number] 04/18/25 10:43 CP Document 04/25/25 13:21 JF [id number] 04/25/25 13:23 JF 04/18/25 04/25/25 10:36 13:21 Wound Center Nurse 1 #5 RT LAT LE POST-OP -Combined with other wound No -Current Size (cm) - Length 4 5.5 -Current Size (cm) - Width 1.5 1.2 -Current Size (cm) - Depth 0.1 0.1 -Total Square Cm 6.0 6.60 -Date of Last Picture (Recall this 04/18/25 field) -Photo Taken Yes -Epithelialization Small 1-33% Small 1-33% -Tunneling No -Undermining/Tunneling No -Circular Undermining No -Exudate Amt Small Medium -Exudate Type Serosanguineous Serosanguineous -Wound Margin Flat & Intact Flat & Intact -Granulation Amt Large (67-100%) Large (67-100%) -Granulation Quality Red Red -Slough/Fibrin Yes -Necrosis Amt None Present (0 Small (1-33%) %) -Necrotic Tissue Type Adherent Slough -Structure Exposed N/A N/A -Texture (Mariza-wound Skin Appearance) No Abnormality Assessed, Localized Edema ,Scarring -Moisture (Mariza-wound Skin Appearance) No Abnormality Assessed,Dry/ Scaly -Color (Mariza-wound Skin Appearance) No Abnormality Assessed -Temperature (Mariza-wound Skin No Abnormality No Abnormality Appearance) (Pt Warm) (Pt Warm) -Tenderness on Palpation (Mariza-wound No Skin Appearance) -Ulcer Cleansing Rinsed/ Rinsed/ Irrigated with Irrigated with Saline Saline -Foul Odor after Cleansing No No -Anesthetic Used 5% Lidocaine 5% Lidocaine Gel Gel Lower Limb Edema Present No WC - Nurse 2 - General Ulcer CM Notes Start: 04/18/25 10:36 Freq: Status: Active Protocol: Activity Type Activity Date Activity User E-sign Co-sign Detail Recorded Client Recorded Date Recorded By Document 04/18/25 11:04 JF [id number] 04/18/25 11:05 JF Document 04/25/25 13:26 JF [id number] 04/25/25 13:29 04/18/25 04/25/25 11:04 13:26 Wound Center Nurse 2 #5 RT LAT LE POST-OP -Time 11:04 13:26 -Correct Patient Yes Yes -Correct Side, Site, Position Yes Yes -Correct Procedure Yes Yes -Procedure Performed Yes Yes -Type of Procedure Debridement Debridement -Clinical Debridement Subcutaneous Subcutaneous -Tissue Removed Subcutaneous Subcutaneous -Post Debridement (cm) - Length 5.1 4.1 -Post Debridement (cm) - Width 1.5 1.3 -Post Debridement (cm) - Depth 0.1 0.1 -Total Square (Post) (cm) 7.65 5.33 -Area of Debridement (cm) - Length 5.1 4.1 -Area of Debridement (cm) - Width 1.5 1.3 -Total Square (Area) (cm) 7.65 5.33 -Tunneling No No -Undermining/Tunneling No No -Circular Undermining No No -Wound/Ulcer Outcome Not Healed Not Healed -Ulcer Cleansing Rinsed/ Rinsed/ Irrigated with Irrigated with Saline Saline -Foul Odor after Cleansing No No -Bioengineered Tissue No No -Bleeding Controlled with Pressure Pressure -Treatment Response Procedure Procedure Tolerated Well Tolerated Well -Offloading No No -Debridement - Subq, 1st 20sq cm Yes Yes Pain Scale: 0-10 Numeric Is Patient Pain Free? Yes Yes - Nurse 3 - General Ulcer D/C NN Start: 04/18/25 10:36 Freq: Status: Active Protocol: Activity Type Activity Date Activity User E-sign Co-sign Detail Recorded Client Recorded Date Recorded By Document 04/18/25 11:21 MT [id number] 04/18/25 11:25 MT Document 04/25/25 13:37 CP [id number] 04/25/25 13:38 CP 04/18/25 04/25/25 11:21 13:37 Wound Care Center Nurse 3 #5 RT LAT LE POST-OP -Ulcer Cleansing Rinsed/ Rinsed/ Irrigated with Irrigated with Saline Saline -Foul Odor after Cleansing No -Negative Pressure Wound Therapy N/A -Primary Dressing Applied Promogran Promogran Page Matter, Page Matter, Silicone Border Silicone Border Foam 4x4 Foam 4x4 -Other Dressing adaptic adaptic -Promogran Page Matter 1 1 -Silicone Border Foam 4x4 1 1 RLE -Tubular Bandage Single Layer -Size of Tubigrip Used Size D -Size D ($) 1 Pain Scale: 0-10 Numeric Is Patient Pain Free? Yes Yes WC - Visit Discharge Discharge Condition Stable Ambulatory Status Wheelchair Transportation usp transport Medication Reconcilliation completed & No provided to patient/care provider Clinical Summary of Care Provided Yes 04/25/25 13:38 Wound Center by Pura Cotto declined compression Initialized on 04/25/25 13:38 - END OF NOTE Assessment/Plan Assessment/Plan (1) Non-pressure chronic ulcer of 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: CODE(S): L97.212 - Non-pressure chronic ulcer of 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 PLAN: Patient was examined and evaluated. All findings were discussed with the patient. All questions were answered to the patient's satisfaction. Excisional debridement of the right leg/calf lateral aspect full-thickness ulceration down to and including subcutaneous tissue with a number 5 mm dermal curette without incident. Predebridement measurement was 3.8 x 1.2 x 0.1 cm. Postdebridement measurement was 4.1 x 1.3 x 0.1 cm. Areas were cleaned and patted dry. Moist Page followed by bordered foam and Tubigrip were donned to the right lower extremity. Recommended daily to every other day dressing changes in the orders. Educated the patient on the importance of wearing compression which she is understanding of however he states that compression is wrapped too tight his facility so hopefully they will continue to use the compression sleeve that was donned on the patient today. Patient will continue strict blood sugar control. Follow-up at the wound care center with Dr. Shannon in 2 week.
--- NOTE | 2025-04-26 10:21 | WC ---
PHOTO-RIGHT LEG 04/25/25
== END 2025-05-11 23:59 | disposition home or self-care (01) ==
LOC: WC 13:15
PROVIDERS: PCP Internal Medicine; Referring Provider Surgery; Visit Provider Podiatrist Foot & Ankle Surgery
DX: E11.622 Type 2 diabetes mellitus with other skin ulcer (principal); L97.212 Non-pressure chronic ulcer of 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
CPT/HCPCS: 11042

== ENCOUNTER 2025-04-27 15:54 | Emergency (ER) | payer MEDICARE, MEDICAID, SELFPAY ==
[2025-04-27 15:56] VITALS: BP 140/68; PULSE 52; RESP 16; TEMP 36.9; O2SAT 98; BMI 33.3
--- NOTE | 2025-04-27 16:25 | EX.ED.DYSGE1 ---
HPI History of Present Illness Chief Complaint: Suicidal Detail of Chief Complaint: Patient is nonverbal by choice. Patient was seen by nurse practitioner for Informant: other Limited: uncooperative Onset/Context/Timing Onset: - (Unknown.) Context: - (Unknown) Timing: - (Unknown) Quality: [place] slip by psychiatric nurse practitioner. Patient with suicidal ideatio Location: Prevents from practitioner's office. Current Severity: Patient is not cooperative and will not speak. Maximum Severity: Patient uncooperative Worsened by: Unknown Relieved by: Unknown Associated Symptoms Associated Symptoms: Unknown Narrative Narrative: Patient is 70-year-old male. He will not speak with any staff members or me. He was sent for psychiatric placement. He has a history of recurrences ideation. He does have a specific plan. He would walk in front of traffic and get struck by a vehicle. Patient had multiple prior attempts. And he is attempted to walk out in traffic and and not a car hit him. In spite of contract with the practitioner, close monitoring, medication adjustment and therapy patient has continued to voice that he wants to . Prior similar symptoms: Yes Recent Illness/Hospitalization: Yes [facility] Medical History Diabetes Kidney disease Sleep apnea Atrial fibrillation Irregular heart beat Hypertension Migraines Altered mental status Acute kidney injury Urinary tract infection Major depressive disorder, single episode, unspecified Bipolar disorder, unspecified Other specified peripheral vascular diseases MRSA (methicillin resistant staph aureus) culture positive Lives in [facility] Wears dentures Depression Anxiety Walker as ambulation aid Ambulates with cane Headache Shortness of breath on exertion Cardiology follow-up encounter History of renal disease Insulin dependent diabetes mellitus Pressure ulcer Abscess Indwelling urethral catheter present Acute painful diabetic polyneuropathy Cancer Former smoker CPAP (continuous positive airway pressure) dependence On home oxygen therapy Pulmonary embolism COPD (chronic obstructive pulmonary disease) Myocardial infarct DVT (deep venous thrombosis) Anemia Ulcer with necrosis of muscle Lymphedema of left lower extremity Lymphedema of right lower extremity Edema of left lower leg Edema of right lower leg Left leg swelling Right leg swelling Chronic venous insufficiency Non-pressure ulcer of right lower extremity with necrosis of muscle BPH (benign prostatic hyperplasia) Atrial fibrillation Blood loss anemia Hypertension Hiatal hernia Diverticulosis Debility Morbid obesity with BMI of 40.0-44.9, adult Impaired mobility SOB (shortness of breath) Heart murmur Heart failure 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 2 diabetes mellitus Aortic valve disease Renal mass, left History of DVT (deep vein thrombosis) Valvular heart disease Atrial fibrillation/flutter Chronic acquired lymphedema Chronic anemia Venous insufficiency (chronic) (peripheral) Ulcer of left lower extremity with fat layer exposed Superficial thrombosis of left lower extremity Peripheral vascular disease of lower extremity with ulceration Sleep apnea Morbid obesity DM2 (diabetes mellitus, type 2) Benign essential HTN Home Medications ?Medication ?Instructions ?Recorded ?Last Taken ?Type aspirin 81 mg tablet,delayed 81 mg PO DAILY AFIB 03/17/19 Unknown History release amlodipine 5 mg tablet 5 mg PO DAILY AFIB 10/28/23 Unknown History apixaban 5 mg tablet (Eliquis) 5 mg PO BID AFIB 10/28/23 Unknown History atorvastatin 20 mg tablet 20 mg PO QHS HYPERLIPIDEMIA 10/28/23 10/13/24 History melatonin 3 mg tablet 6 mg PO QHS INSOMNIA 10/28/23 Unknown History tamsulosin 0.4 mg capsule 0.4 mg PO QHS PROSTATIC HYPERPLASIA 12/22/23 Unknown History insulin glargine 100 unit/mL (3 23 unit subcut QHS DIABETIC 06/01/24 Unknown History mL) subcutaneous pen (Lantus Solostar U-100 Insulin) donepezil 5 mg tablet 5 mg PO QHS MEMORY 08/16/24 Unknown History gabapentin 100 mg capsule 200 mg PO TID NEUROPATHY 08/16/24 Unknown History insulin lispro 100 unit/mL See Protocol subcut TID DIABETIC 08/16/24 Unknown History subcutaneous pen (Humalog KwikPen (U-100) Insulin) lurasidone 40 mg tablet 40 mg PO QHS MOOD 08/16/24 Unknown History potassium chloride 10 mEq 10 meq PO BID POTASSIUM 08/16/24 Unknown History capsule,extended release budesonide-formoterol HFA 160 1 puff inhalation DAILY COPD 09/16/24 Unknown History mcg-4.5 mcg/actuation aerosol inhaler (Symbicort) trazodone 100 mg tablet 100 mg PO QHS insomnia 09/16/24 Unknown History acetaminophen 500 mg tablet 1,000 mg PO TID PAIN 01/05/25 Unknown History lactulose 10 gram/15 mL oral 40 g PO DAILY 01/05/25 Unknown History solution magnesium hydroxide 400 mg/5 mL 30 ml PO DAILY PRN constipation 01/05/25 Unknown History oral suspension (Dulcolax (magnesium hydroxide)) mecobalamin (vitamin B12) 500 mcg 500 mcg PO DAILY 01/05/25 Unknown History chewable tablet cefdinir 300 mg capsule 300 mg PO BID #14 caps 01/06/25 Unknown Rx torsemide 10 mg tablet 10 mg PO DAILY #1 TAB 01/06/25 Unknown Rx ciprofloxacin HCl 250 mg tablet 250 mg PO BID 7 days #14 tabs 03/12/25 Unknown Rx (Cipro) Allergy/AdvReac Type Severity Reaction Status Date / Time ibuprofen (From Nuprin) Allergy Unknown Verified 04/27/25 16:04 Family History Mother Diabetes Father Cirrhosis of liver Alcoholism Surgical History History of incision and drainage History of embolic filter insertion History of right inguinal hernia repair H/O colectomy History of repair of inguinal hernia History of bladder surgery History of tonsillectomy and adenoidectomy History of right inguinal hernia repair S/P AVR (aortic valve replacement) Social History housing: [facility] Smoking Status: Former smoker how long ago did patient quit smoking: Quit ~ 20 yrs prior, smoked age 15 until quit ~ 2 ppd. alcohol intake: never substance use type: does not use ROS ROS ED Review of Systems ROS Unobtainable: due to mental condition and due to mental status EXAM Physical Exam Const Vital Signs: 04/27/25 15:56 04/27/25 18:43 Temperature 98.5 F Temperature Source Oral Pulse Rate 52 L 55 L Respiratory Rate 16 18 Blood Pressure 140/68 H 152/78 H Blood Pressure Mean 92 102 Pulse Ox 98 96 Oxygen Delivery Method Room Air Room Air Positive well nourished, well developed and obese General Appearance ED: well developed and NAD; Negative for pallor Nutritional Appearance: obese HEENT Reports moist mucous membranes HEENT Narrative: Head is atraumatic and normocephalic. Ears are normal. Nares are patent. Eyes PERRL and EOMs intact bilaterally Neck no lymphadenopathy, supple and no JVD Resp normal respiratory effort and clear to auscultation bilaterally Cardio regular rate, regular rhythm, S1 normal heart sound, S2 normal heart sound and no murmurs GI normal to inspection, nondistended, normoactive bowel sounds, non-tender, non-distended and no masses; Negative for hepatosplenomegaly Extremity normal to inspection Neuro Neuro Narrative: Unable to determine since patient will not cooperate Psych Psych Narrative: Catatonic Skin no rashes or lesions noted and no wounds General Skin Exam: Negative for jaundice or pallor MDM MDM MDM Narrative Medical decision making narrative: Based on review of his charts pink slip from psychiatric nurse practitioner psychiatric evaluation was undertaken and appropriate labs for clearance to place at psychiatric facility. Patient management was consulted to facilitate this. Lab Data Attestation: I reviewed the patient's lab results. Lab results narrative: CBC reveals mild anemia with normal indices. Comprehensive metabolic panel with slight elevation of potassium of 5.2. Ethanol nondetected. Awaiting tox screen since patient is not urinated. If he has not urinated we will have nurse straight cath him. Labs: Laboratory Results - last 24 hr 04/27/25 04/27/25 04/27/25 16:22 18:23 18:40 WBC 5.8 RBC 4.60 Hgb 12.5 L Hct 39.8 L MCV 86.5 MCH 27.2 MCHC 31.4 L RDW Std Deviation 47.3 H RDW Coeff of Carlito 14.9 H Plt Count 159 MPV 13.0 H Immature Gran % (Auto) 0.300 Neut % (Auto) 74.8 H Lymph % (Auto) 14.4 L [place] % (Auto) 8.2 Eos % (Auto) 1.6 Baso % (Auto) 0.7 Absolute Neuts (auto) 4.3 Absolute Lymphs (auto) 0.83 Nucleated RBC % 0 Sodium 140 Potassium 5.2 H Chloride 103 Carbon Dioxide 25.0 Anion Gap 11 BUN 18 Creatinine 1.19 Estim Creat Clear Calc 78.82 Est GFR (MDRD) Non-Af 66 BUN/Creatinine Ratio 15.3 Glucose 105 H Calcium 9.5 Total Bilirubin 0.54 AST 21 ALT 18 Alkaline Phosphatase 100 Total Protein 6.8 Albumin 3.8 Globulin 3.0 Albumin/Globulin Ratio 1.3 Urine Color Straw Urine Clarity Cloudy Urine pH 7.0 Ur Specific [place] 1.010 Urine Protein 15 H Urine Glucose (UA) Normal Urine Ketones 15 H Urine Occult Blood 10 H Urine Nitrite Positive H Urine Bilirubin Negative Urine Urobilinogen Normal Ur Leukocyte Esterase 500 H Urine Opiates Screen NEGATIVE U Buprenorphine Qual NEGATIVE Ur Oxycodone Screen NEGATIVE Urine Methadone Screen NEGATIVE Urine Fentanyl Screen NEGATIVE Ur Barbiturates Screen NEGATIVE Ur Phencyclidine Scrn NEGATIVE Ur Amphetamines Screen NEGATIVE U Benzodiazepines Scrn NEGATIVE Urine Cocaine Screen NEGATIVE U Cannabinoids Screen NEGATIVE Ethyl Alcohol < 10.1 POC Glucose 85 Discharge Plan Triage Chief Complaint: Suicidal ED Provider: Kelvin Hoffmann Dx/Rx/DC Orders Clinical Impression: Major depression, Suicidal ideations, Failure of outpatient treatment, Bradycardia, Hypertension Prescriptions: No Action tamsulosin 0.4 mg capsule 0.4 mg PO QHS aspirin 81 MG tablet,delayed release (DR/EC) 81 mg PO DAILY atorvastatin 20 mg tablet 20 mg PO QHS amlodipine 5 mg tablet 5 mg PO DAILY Eliquis 5 mg tablet 5 mg PO BID melatonin 3 mg tablet 6 mg PO QHS mecobalamin (vitamin B12) 500 mcg tablet,chewable 500 mcg PO DAILY lactulose 10 gram/15 mL solution 40 g PO DAILY magnesium hydroxide [Dulcolax (magnesium hydroxide)] 400 mg/5 mL suspension 30 ml PO DAILY PRN (Reason: constipation) acetaminophen 500 mg tablet 1,000 mg PO TID torsemide 10 mg tablet 10 mg PO DAILY Qty: 1 0RF cefdinir 300 mg capsule 300 mg PO BID Qty: 14 0RF insulin glargine [Lantus Solostar U-100 Insulin] 100 unit/mL (3 mL) insulin pen 23 unit subcut QHS donepezil 5 mg tablet 5 mg PO QHS gabapentin 100 mg capsule 200 mg PO TID insulin lispro [Humalog KwikPen Insulin] 100 unit/mL insulin pen See Protocol subcut TID Protocol: 6. Sliding Scale Insulin Custom Condition: 151-200 Dose/Route: 2 UNITS Condition: 201-250 Dose/Route: 4 UNITS Condition: 251-300 Dose/Route: 6 UNITS Condition: 301-350 Dose/Route: 8 UNITS Condition: 351-400 Dose/Route: 10 UNITS Protocol Text: Custom Sliding Scale Rx Instructions: sliding scale lurasidone 40 mg tablet 40 mg PO QHS Rx Instructions: must administer with food (at least 350 calories) potassium chloride 10 mEq capsule, extended release 10 meq PO BID budesonide-formoterol [Symbicort] 160-4.5 mcg/actuation HFA aerosol inhaler 1 puff inhalation DAILY trazodone 100 mg tablet 100 mg PO QHS ciprofloxacin HCl [Cipro] 250 mg tablet 250 mg PO BID 7 Days Qty: 14 0RF Primary Care Provider: Kathleen Herzog Referrals: Kathleen Herzog MD [Primary Care Provider, Geriatrics] Print Language: Spanish Disposition Disposition: Psychiatric Hospital or Unit Discharge Location: [facility]
[2025-04-27 16:56] LABS: Hematocrit 39.8 % (40-54); Hemoglobin 12.5 g/dL (13.0-16.5); Immature Granulocytes Count 0.020 X10^3/uL (0.0-0.0); Mean Corp Hgb Conc 31.4 g/dL (32-36); Mean Corpuscular Volume 86.5 fL (80-94); Mean Platelet Vol. 13.0 fl (6.2-12.0); NRBC Flagged by Analyzer 0 % (0-5); Platelet Count 159 K/mm3 (150-450); RBC Distribution Width CV 14.9 % (11.6-14.6); RBC Distribution Width SD 47.3 fl (35.1-43.9); Red Blood Count 4.60 M/mm3 (4.6-6.2); White Blood Count 5.8 K/mm3 (4.4-11.0)
[2025-04-27 17:20] LABS: AST(SGOT) 21 U/L (<=37); Alanine Aminotransfer ALT/SGPT 18 U/L (<=46); Albumin, Serum 3.8 g/dL (3.4-4.8); Alkaline Phosphatase 100 U/L (40-129); Anion Gap 11 (5-15); BUN 18 mg/dL (4-19); BUN/Creat Ratio 15.3 RATIO (10-20); Calcium,Total 9.5 mg/dL (7.6-11.0); Carbon Dioxide 25.0 mmol/L (21.0-32.0); Chloride 103 mmol/L (98-108); Estimated Creatinine Clearance 78.82 ml/min (50-250); Globulin 3.0 g/dL (2.2-4.2); Glucose 105 mg/dL (70-99); Potassium 5.2 mmol/L (3.3-5.1)
--- OUTSIDE RECORDS SUMMARY | 2025-04-27 17:20 | XMS RPT_ITS | CCD ---
Author Organization [facility] Care Team Providers Care Germination Worker Name Role Phone Poornima Medina Primary Care Provider YADIEL NASCIMENTO Primary Care Physician [phone] KELLIE BURGOS Primary Care Physician Poornima Medina DO Primary Care Provider Delmis ANCILLARY SERVICES MANAGER THERAPY, ANCILLARY SERVICES MANAGER THERAPY-C Kellie Primary Care Provider [phone] Dr. Shayna Martinez Emergency Provider Dr. Sommer [...] AG Attending Unavailable KELLIE BURGOS Primary Care UnavailVernoica CASTELLANOS, KELLIE Primary Care UnavailDANIE Chaidez Referring Unavailable RACHAEL KWAN, JUAN Attending Unavailable RACHAEL KWAN, JUAN Consulting Unavailable DANIE ALBERTO Admitting Unavailable BALTES FELT DYEING MACHINE TENDER-ENDOSCOPY TECH, KELLIE Primary Care Unavailabl e BALTES FELT DYEING MACHINE TENDER-ENDOSCOPY TECH, KELLIE Attending Unavailabl e BALTES FELT DYEING MACHINE TENDER-ENDOSCOPY TECH, KELLIE Primary Care Unavailabl e BALTES FELT DYEING MACHINE TENDER-ENDOSCOPY TECH, KELLIE Attending Unavailabl e BALTES FELT DYEING MACHINE TENDER-ENDOSCOPY TECH, KELLIE Primary Care Unavailabl e KAPPER FELT DYEING MACHINE TENDER-ENDOSCOPY TECH, WU Frances Admitting Unavailkenia ABRAHAM MD, IRAIDA Consulting Unavailable SAADIA BASS, DR RIVAS Attending Unavailable DANIE ALBERTO Consulting Unavailable LUIS MIGUEL KWAN, DR NICHO BANKS Consulting Unavai lable BALTES FELT DYEING MACHINE TENDER-ENDOSCOPY TECH, KELLIE Primary Care Unavailabl e BALTES FELT DYEING MACHINE TENDER-ENDOSCOPY TECH, KELLIE Attending Unavailabl e BALTES FELT DYEING MACHINE TENDER-ENDOSCOPY TECH, KELLIE Primary Care Unavailabl e SAADIA KWAN, FERNANDO Messer Attending Unavail able BALTES FELT DYEING MACHINE TENDER-ENDOSCOPY TECH, KELLIE Primary Care Unavailabl e SAADIA KWAN, FERNANDO Messer Attending Unavail able BALTES FELT DYEING MACHINE TENDER-ENDOSCOPY TECH, KELLIE Primary Care Unavailabl e GAVINO AG Attending Unavailable BALTES FELT DYEING MACHINE TENDER-ENDOSCOPY TECH, KELLIE Primary Care Unavailabl e BALTES FELT DYEING MACHINE TENDER-ENDOSCOPY TECH, KELLIE Attending Unavailabl e BALTES FELT DYEING MACHINE TENDER-ENDOSCOPY TECH, KELLIE Primary Care Unavailabl e BALTES FELT DYEING MACHINE TENDER-ENDOSCOPY TECH, KELLIE Attending Unavailabl e BALTES FELT DYEING MACHINE TENDER-ENDOSCOPY TECH, KELLIE Primary Care Unavailabl e BALTES FELT DYEING MACHINE TENDER-ENDOSCOPY TECH, KELLIE Attending Unavailabl e BALTES FELT DYEING MACHINE TENDER-ENDOSCOPY TECH, KELLIE Primary Care Unavailabl e BALTES FELT DYEING MACHINE TENDER-ENDOSCOPY TECH, KELLIE Attending Unavailabl e BALTES FELT DYEING MACHINE TENDER-ENDOSCOPY TECH, KELLIE Primary Care Unavailabl e LASCOLA DPM, SAKINA Cisse Attending Unavailab le BALTES FELT DYEING MACHINE TENDER-ENDOSCOPY TECH, KELLIE Primary Care Unavailabl e ASHLEY DPM, DR CLARISSE Morales Attending Unav ailable Dr. Ignacia Reyna DO Primary Care Provider Shiva DPM, Dr. Walker Attending Provider Shiva DPM, Dr. Walker Referring Provider Fidelina KWAN, Dr. Moshe Aquino Referring Provider Dr. Ignacia Reyna DO Other Provider Dr. Juan Cunha DO Emergency Provider Saul KWAN, Dr. Wang Primary Care Provider Lee Ann Kitchen MD, Dr. Moshe Aquino Referring Provider Axel BASS, Dr. Escobedo Primary Care Provider [phone] Axel BASS, Dr. Escobedo Other Provider [phone] Shiva FREEMANM, Dr. Walker Attending Provider Guerline BASS, Dr. Martinez Attending Provider [phone] Eunice KWAN, Kurtis Emergency Provider Katerine KWAN, [...] Provider Dino KWAN, Dr. Vela Attending Provider SADAIA BASS, DR RIVAS Attending Unavailable DR ROB MONTENEGRO DO Referring Unavailable JOSEFINA GRAVES-ENDOSCOPY TECH, MIRELA Martin Admitting Galilea BENITES FELT DYEING MACHINE TENDER-ENDOSCOPY TECH, KELLIE Primary Care Unavailabl POORNIMA Blackmon DO Attending Unavailable BALTES FELT DYEING MACHINE TENDER-ENDOSCOPY TECH, KELLIE Primary Care Unavailabl e SAADIA KWAN, FERNANDO Messer Attending Unavail able BALTES FELT DYEING MACHINE TENDER-ENDOSCOPY TECH, KELLIE Primary Care Unavailabl e SALUD KWAN, CHAYO Attending Unavailable BALTES FELT DYEING MACHINE TENDER-ENDOSCOPY TECH, KELLIE Primary Care Unavailabl e BALTES FELT DYEING MACHINE TENDER-ENDOSCOPY TECH, KELLIE Attending Unavailabl e BALTES FELT DYEING MACHINE TENDER-ENDOSCOPY TECH, KELLIE Primary Care Unavailabl e FISH FELT DYEING MACHINE TENDER-ENDOSCOPY TECH, GAVINO Attending Unavailab le BALTES FELT DYEING MACHINE TENDER-ENDOSCOPY TECH, KELLIE Primary Care Unavailabl e Yareli KWAN, Shar Candelario Unavailable [phone] Fidelina KWAN, Dr. Moshe Aquino Referring Provider Dr. Ignacia Reyna DO Primary Care Provider [phone] Dr. Ignacia Reyna DO Other Provider [phone] Shiva DPM, Dr. Walker Attending Provider Jan DPM, Dr. Martell Referring Provider SHAR DOWNS Attending Unavailable IGNACIA REYNA Primary Care Unavailable SHAR DOWNS Attending Unavailable IGNACIA REYNA Primary Care Unavailable ISABELA CAMPBELL Attending Unavailable AXEL, IGNACIA Primary Care Unavailable SHAR DOWNS Attending Unavailable AXEL, IGNACIA Primary Care Unavailable SHAR DOWNS Referring Unavailable AXEL, IGNACIA Primary Care Unavailable Guerline BASS, Dr. Martinez Attending Provider Dr. Juan Cunha DO Emergency Provider Saul KWAN, Dr. Wang Primary Care Provider Unava kelly Kitchen MD, Dr. Moshe Aquino Referring Provider Dr. Ignacia Reyna DO Primary Care Provider [phone] Dr. Ignacia Reyna DO Other Provider [phone] Shiva DPM, Dr. Walker Attending Provider Kurtis Monteiro MD Emergency Provider [phone] Katerine KWAN, Dr. Monika Rosenberg Admit Provider Katerine KWAN, Dr. Monika Rosenberg Other Provider Florinda KWAN, Dr. Lizama Attending Provider Unavaila ble Bridgettee MD, Dr. Lizama Other Provider Unavailable uJan BASS, Dr. Martell Emergency Provider Jan MIRANDA, [...] Anita BASS, Dr. Palma Other Provider BALTES FELT DYEING MACHINE TENDER-ENDOSCOPY TECH, KELLIE Primary Care Unavailabl e RAGHAV TOLBERT Attending Unavailable BALTES FELT DYEING MACHINE TENDER-ENDOSCOPY TECH, KELLIE Primary Care Unavailabl e BALTES FELT DYEING MACHINE TENDER-ENDOSCOPY TECH, KELLIE Attending Unavailanthony Herzog MD, Dr. Wang Primary Care Provider Unava kelly Neely MD, Dr. Lizama Other Provider Unavailable Fidelina KWAN, Dr. Moshe Aquino Referring Provider Axel BASS, Dr. Escobedo Other Provider Shiva MIRANDA, Dr. Walker Attending Provider Shauna BASS, Dr. Doyle Emergency Provider Shree KWAN, Dr. Kelley Admit Provider Shree KWAN, Dr. Kelley Referring Provider Shree KWAN, Dr. Kelley Other Provider Anita BASS, Dr. Palma Attending Provider Anita BASS, Dr. Palma Other Provider Fidelina KWAN, Dr. Moshe Aquino Referring Provider Axel BASS, Dr. Escobedo Other Provider Shiva DPM, Dr. Walker Attending Provider Saul KWAN, Dr. Wang Primary Care Provider Tawanava ilseymour Ho DO, Dr. Petty Emergency Provider Fidelina KWAN, Dr. Moshe Aquino Referring Provider Axel BASS, Dr. Escobedo Nurse Practitioner Shiva DPM, Dr. Walker Attending Physician Saul KWAN, Dr. Wang Primary Care Physician Unav ailDr. Vivek Kirlkand DO Emergency Department Physi laron Shree KWAN, Dr. Kelley Admitting Physician Shree KWAN, Dr. Kelley Nurse Practitioner Dr. Louie Howard DO Attending Physician Anita BASS, Dr. Palma Nurse Practitioner Dr. Malinda Ho DO Attending Physician Dr. Malinda Ho DO Emergency Department Physi laron Aaron Shannon Attending Unavailable Reyna, Ignacia Consulting Unavailable Kathleen Herzog Primary Care Unavailable Areli Kitchenry A Referring Unavailable Aaron Shannon Attending Unavailable Reyna, Ignacia Primary Care Unavailable Reyna, Ignacia Consulting Unavailable Kitchen, Moshe A Referring Unavailable Aaron Shannon Attending Unavailable Reyna, Ignacia Primary Care Unavailable Reyna, Ignacia Consulting Unavailable Fidelina, Moshe A Referring Unavailable Aaron Shannon Referring Unavailable Aaron Shannon Attending Unavailable Reyna, Ignacia Primary Care Unavailable Aaron Shannon Attending Unavailable Reyna, Ignacia Consulting Unavailable Reyna, Ignacia Primary Care Unavailable Kitchen, Moshe A Referring Unavailable Gudla, Kathleen Primary Care Unavailable Aaron Shannon Attending Unavailable Reyna, Ignacia Consulting Unavailable Kitchen, Moshe A Referring Unavailable Gudla, Kathleen Primary Care Unavailable Koram, Monika Shakira Consulting Unavailable Koram, Monika Shakira Admitting Unavailable Vivek Gates Attending Unavailable Shayna Montoya Consulting Unavailable Channing Barnard Consulting Unavailable Lalo, Colby Consulting Unavailable Aaron Shannon Attending Unavailable Reyna, Ignacia Primary Care Unavailable Reyna, Ignacai Consulting Unavailable Kitchen, Moshe A Referring Unavailable Gudla, Kathleen Primary Care Unavailable Juan Cunha Attending Unavailable Aaron Shannon Attending Unavailable Reyna, Ignacia Consulting Unavailable Gudla, Kathleen Primary Care Unavailable Kitchen, Moshe A Referring Unavailable Gudla, Kathleen Primary Care Unavailable Aaron Shannon Attending Unavailable Kitchen, Moshe A Referring Unavailable Reyna, Ignacia Consulting Unavailable Gudla, Kathleen Primary Care Unavailable Aaron Shannon Attending Unavailable Kitchen, Moshe A Referring Unavailable Reyna, Ignacia Consulting Unavailable Gudla, Kathleen Primary Care Unavailable Aaron Shannon Attending Unavailable Kitchen, Moshe A Referring Unavailable Reyna, Ignacia Consulting Unavailable Gudla, Kathleen Primary Care Unavailable Malinda Ho Attending Unavailable Reyna, Ignacia Primary Care Unavailable Aaron Shannon Attending Unavailable Reyna, Ignacia Consulting Unavailable Kitchen, Moshe A Referring Unavailable Gudla, Kathleen Primary Care Unavailable Koram, Monika Shakira Admitting Unavailable Koram, Monika Shakira Consulting Unavailable Vivek Gates Attending Unavailable Shayna Montoya Consulting Unavailable Channing Barnard Consulting Unavailable Lalo, Colby Consulting Unavailable Vivek Gates Consulting Unavailable Allie Swann Attending Unavailable Gudla, Kathleen Primary Care Unavailable Allie Swann Consulting Unavailable Allie Swann Admitting Unavailable Allie Swann Referring Unavailable Louie Howard Attending Unavailable Louie Howard Consulting Unavailable Allie Swann Admitting Unavailable Allie Swann Referring Unavailable Allie Swann Consulting Unavailable Louie Howard Attending Unavailable Gudla, Kathleen Primary Care Unavailable Gudla, Kathleen Primary Care Unavailable Koram, Monika Shakira Admitting Unavailable Koram, Monika Shakira Consulting Unavailable Dl Neely Attending Unavailable Aaron Shannon Attending Unavailable Ignacia Reyna Consulting Unavailable Ignacia Reyna Primary Care Unavailable Moshe Kitchen Referring Unavailable Gudla, Kathleen Primary Care Unavailable Koram, Monika Shakira Admitting Unavailable Koram, Monika oGnzaleza Attending Unavailable Maryam, Monika Shakira Consulting Unavailable Dl Neely Attending Unavailable Dl Neely Consulting Unavailable Koram, Monika Rosenberg Attending Unavailable Gudla, Kathleen Primary Care Unavailable Vivek Cárdenas Attending Unavailable Shayna Montoya Referring Unavailable Ignacia Reyna Referring Unavailable Kevin Ulrich Attending Unavailable Gudla, Kathleen Primary Care Unavailable Gudla, Kathleen Primary Care Unavailable Suraj Quinn Attending Unavailabl e Gudla, Kathleen Primary Care Unavailable Dane Sun Attending Unavailable Colby May Attending Unavailable Aaron Shannon Attending Unavailable Ignacia Reyna Consulting Unavailable [facility], Kathleen Primary Care Unavailable Moshe Kitchen Referring Unavailable Allergies Allergy Classification Reported Allergen(s) Allergy Type Date of Onset Reaction(s) Facility (20 sources) Ibuprofen; Translations: [ibuprofen] Drug Allergy 10-28-2023 Unknown [facility] (6 sources) [facility] non-codified allergy 1 Drug allergy [facility] Comment on above: blood thinner--does not know the name (14 sources) [facility] non-codified allergy 1, 2 Drug allergy unknown [facility] [place] Comment on above: possibly Nuprin? blood thinner--does not know the name (1 source) Ibuprofen Drug Allergy 03-11-2025 [facility] Medications Current Medications Medication Drug Class(es) [...] sites, # 4 EA, 4 Refill(s), Pharmacy: [facility], 185.4, cm, 04/23/23 9:20:00 EDT, Height, kg, 08/18/23 8:26:00 EST, Dosing Weight Start Date: 09/16/23 Status: Ordered Start: 07-07-2023 inject 1 dose by sub cutaneous injection every week Mounjaro 5 mg/0.5 mL subcutaneous solution Dose : 5 mg =, Subcutaneous, qWeek, rotate injection sites, # 4 EA, 4 Refill(s), Pharmacy: [facility], 185.4, cm, 04/23/23 9:20:00 EDT, Height, kg, 04/23/23 9:20:00 EDT, Dosing Weight Start Date: 07/07/23 Status: Ordered 0.5 ML tirzepatide 5 MG/ML Auto-Injector [Mounjaro] (1 source) Start: 04-07-2023 inject 1 dose by subcutaneous injection every week Mounjaro 2.5 mg/0.5 mL subcutaneous solution Dose : 2.5 mg =, Subcutaneous, qWeek, rotate injection sites, # 4 EA, 3 Refill(s), Pharmacy: [facility], 182.9, cm, 03/16/23 6:55:00 EDT, Height, kg, 03/16/23 6:55:00 EDT, Dosing Weight Start Date: 04/07/23 Status: Ordered 3 ML semaglutide 1.34 MG/ML Pen Injector [Ozempic] (1 source) Start: 08-18-2022 End: 03-02-2023 inject 1 dose by subcutaneous injection every week Ozempic (1 mg dose) 4 mg/3 mL subcutaneous solution Dose : 1 mg =, Subcutaneous, qWeek, # 3 mL, 6 Refill(s), Pharmacy: [facility], 182.9, cm, 07/10/22 9:29:00 EST, [...] arm, # 3 mL, 11 Refill(s), Pharmacy: [facility], 182.9, cm, 07/10/22 9:29:00 EST, Height Start Date: 01/05/23 Status: Ordered acetaminophen 500 mg oral tablet (20 sources) Start: 01-05-2025 take 2 tablets by mouth three times daily Start: 06-01-2024 End: 01-05-2025 take 2 tablets [...] HOURS NEEDED as needed for Fever, pain 1-/10 0 0 November 03, 2023 12:00am January [...] / HYDROcodone bitartrate 5 mg oral tablet (15 sources) Opioid Agonist Start: 04-05-2024 End: 04-08-2024 take 1 tablet by mouth every six hours as needed for pain [place] 325- 5 mg oral tablet Dose = [...] End: 01-08-2024 albuterol 0.83 mg/ml inhalation solution (20 sources) beta2-Adrenergic Agonist Start: 04-05-2024 take 1 dose by inhalation every two hours as needed albuterol 2.5 mg/3 mL (0.083%) inhalation solution Dose : 2.5 mg = 3 mL, Inhalation, q2h, PRN for wheezing/SOB, 0 Refill(s) Start Date: 04/05/24 Status: Ordered Start: 11-13-2023 albuterol 0 Re fill(s) Start Date: 11/13/23 Status: Ordered Start: 11-03-2023 End: 11-21-2024 take 2.5 mg by inhalation every two [...] take 1 tablet by mouth once daily Start: 07-07-2023 amLODIPine 5 m g oral tablet Dose : 5 mg = 1 tab(s), Oral, qDay, # 90 tab(s), 0 Refill(s), Pharmacy: [facility], 185.4, cm, 04/23/23 9:20:00 EDT, Height, kg, 04/23/23 9:20:00 EDT, Dosing Weight Start Date: 07/07/23 Status: Ordered Start: 01-03-2023 End: 07-02-2023 amLODIPine 5 mg oral tablet Dose : 5 mg = 1 tab(s), Oral, qDay, # 90 tab(s), 1 Refill(s), Pharmacy: [facility], 182.9, cm, 07/10/22 9:29:00 EST, Height, kg, 07/10/22 9:29:00 EST, Dosing Weight Start Date: 01/03/23 Stop Date: 07/02/23 Status: Ordered Start: 07-14-2021 End: 09-01-2022 amLODIPine 5 mg oral tablet Dose : 5 mg = 1 tab(s), Oral, qDay, # 30 tab(s), 5 Refill(s), Pharmacy: [facility], 186, cm, 03/05/22 13:30:00 EDT, Height, kg, 03/05/22 13:30:00 EDT, Dosing Weight Start Date: 03/05/22 Stop Date: 09/01/22 Status: Ordered Start: 06-09-2021 amLODIPine 5 m g oral tablet Dose : 5 mg = 1 tab(s), Oral, qDay, # 30 tab(s), 0 Refill(s), Pharmacy: [facility], 184, cm, 06/06/21 11:53:00 EST, Height, kg, 06/06/21 11:53:00 EST, Dosing Weight Start Date: 06/09/21 Status: Ordered apixaban 5 mg oral tablet (20 sources) Factor Xa Inhibitor Start: 10-26-2023 take 1 tablet by mouth twice daily Start: 10-11-2023 take 1 tablet by sahra th every twelve hours ELIQUIS 5 mg tab(s) Take 1 tablet by mouth every 12 hours. 10/11/2023 Active Start: 07-07-2023 Eliquis 5 mg o ral tablet Dose : 5 mg = 1 tab(s), Oral, BID, # 180 tab(s), 1 Refill(s), Pharmacy: [facility], 185.4, cm, 04/23/23 9:20:00 EDT, Height, 172, kg, 04/23/23 9:20:00 EDT, Dosing Weight Start Date: 07/07/23 Status: Ordered Start: 01-03-2023 Eliquis 5 mg o ral tablet Dose : 5 mg = 1 tab(s), Oral, BID, # 180 tab(s), 1 Refill(s), Pharmacy: [facility], 182.9, cm, 07/10/22 9:29:00 EST, Height, 166.8, kg, 07/10/22 9:29:00 EST, Dosing Weight Start Date: 01/03/23 Status: Ordered Start: 04-02-2022 Eliquis 5 mg o ral tablet Dose : 5 mg = 1 tab(s), Oral, BID, # 60 tab(s), 4 Refill(s), Pharmacy: [facility], 186, cm, 03/05/22 13:30:00 EDT, Height, 162.2, kg, 03/05/22 13:30:00 EDT, Dosing Weight Start Date: 04/02/22 Status: Ordered Start: 03-04-2022 Eliquis 5 mg o ral tablet Dose : 5 mg = 1 tab(s), Oral, BID, # 60 tab(s), 0 Refill(s), Pharmacy: [facility], 184, cm, 11/06/21 13:22:00 [...] tab(s), 2 Refill(s), DVT Treatment Dosing, Pharmacy: [facility], 184, cm, 06/06/21 11:53:00 EST, Height, 153.8, kg, 06/06/21 11:53:00 EST, Dosing Weight Start Date: 06/06/21 Stop Date: 09/04/21 Status: Ordered atorvastatin 20 mg oral tablet (20 sources) HMG-CoA Reductase Inhibitor Start: 01-03-2023 End: 04-06-2024 take 1 tablet by mouth at bedtime Budesonide-Formoterol (20 sources) Corticosteroid, beta2-Adrenergic Agonist Start: 09-16-2024 Start: 09-16-2024 Budesonide-For moterol (Symbicort) [...] Status: Ordered cefdinir 300 mg oral capsule (20 sources) Cephalosporin Antibacterial Start: 01-06-2025 take 1 capsule by mouth twice daily Start: 09-17-2024 End: 10-10-2024 take 1 capsule [...] cap(s), 0 Refill(s), 06/29/21 9:32:00 EST, Pharmacy: [facility], Perirectal abscess, 184, cm, 06/23/21 14:18:00 EST, Height, 149.4, kg... Start Date: 06/26/21 Stop Date: 06/29/21 Status: Ordered ciprofloxacin 250 mg oral tablet (2 sources) Quinolone Antimicrobial Start: 03-12-2025 take 1 tablet by mouth twice daily Santyl (8 sources) Collagen-specific Enzyme Start: 04-06-2024 Santyl Topical, qDay, 0 Refill(s), 131.9 Start Date: [...] Ordered docusate sodium 100 mg oral tablet (15 sources) Start: 04-05-2024 docusate sodiu m 100 [...] 1:49pm donepezil hydrochloride 5 mg oral tablet (15 sources) Start: 08-16-2024 take 1 tablet by sahra th at bedtime Start: 08-16-2024 doxycycline hyclate 100 mg oral capsule (20 sources) Tetracycline-class Drug Start: 04-07-2024 End: 04-14-2024 doxycycline hyclate 100 mg oral capsule Dose : 100 mg = 1 cap(s), Oral, BID, X 7 day(s), # 14 cap(s), 0 Refill(s), 04/14/24 4:05:00 PM EDT, Pharmacy: [facility], 188, robina, 04/06/24 15:12:00 EDT, Height, 131.9, kg, 04/06/24 [...] 0 Refill(s), 10/30/23 1:23:00 PM EDT, Pharmacy: [facility], 188, robina, 10/13/23 19:59:00 EDT, Height, 169.2, kg, 10/22/23 [...] qDay, # 30 tab(s), 5 Refill(s), Pharmacy: [facility], 184, cm, 11/06/21 13:22:00 EDT, Height, kg, 11/06/21 13:22:00 EDT, Dosing Weight Start Date: 01/19/22 Stop Date: 07/18/22 Status: Ordered Start: 07-14-2021 End: 01-10-2022 fenofibrate 145 mg oral tabl et Dose : 145 mg = 1 tab(s), Oral, qDay, # 30 tab(s), 5 Refill(s), Pharmacy: [facility], 184.5, cm, 07/14/21 8:31:00 EST, Height, kg, 07/14/21 8:31:00 EST, Dosing Weight Start Date: 07/14/21 Stop Date: 01/10/22 Status: Ordered Start: 12-10-2020 End: 06-08-2021 fenofibrate 145 mg oral tabl et Dose : 145 mg = 1 tab(s), Oral, qDay, # 30 tab(s), 5 Refill(s), Pharmacy: [facility], 185.9, cm, 12/05/20 8:53:00 EDT, Height, kg, 12/05/20 8:53:00 EDT, Dosing Weight Start Date: 12/10/20 Stop Date: 06/08/21 Status: Ordered FreeStyle Anai 2 [place] (5 sources) Start: 04-05-2024 FreeStyle Libr e 2 [place] See Instructions, Use reader to scan sensor daily for blood sugar checks. Scan at least once every 8 hours, # 1 EA, 0 Refill(s), 133 Start Date: 04/05/24 Status: Ordered Quantity: 1.0 Unit: EA Repeat number: 1 Start: 04-05-2024 FreeStyle Libr e 2 [place] See Instructions, Use reader to scan sensor daily for blood sugar checks. Scan at least once every 8 hours, # 1 EA, 0 Refill(s), 133 Start Date: 04/05/24 Status: Ordered FreeStyle [place] 14 day sens or (5 sources) Start: [...] 2 capsules by mouth three times daily Start: 10-13-2023 End: 08-16-2024 take 1 capsule [...] unit/mL (3 mL) 10/08/2024 Active Start: 06-01-2024 Start: 06-01-2024 Start: 06-01-2024 Insulin Glargi ne [...] injector (20 sources) Insulin Analog Start: 08-16-2024 Start: 08-16-2024 Insulin Lispro (Humalog [...] 0 Refill(s) Start Date: 10/13/23 Status: Ordered lactulose 667 mg/ml oral solution (20 sources) Osmotic Laxative Start: 09-16-2024 End: 01-05-2025 take 40 g by mouth once daily Start: 08-26-2024 End: 01-05-2025 take 1 mL [...] 0 Refill(s) Start Date: 04/05/24 Status: Ordered lurasidone hydrochloride 40 mg oral tablet (12 sources) Atypical Antipsychotic Start: 10-05-2024 lurasid one (LATUDA) 40 mg tablet 10/05/2024 Active Start: 08-16-2024 magnesium hydroxide 80 mg/ml oral suspension (4 sources) Start: 01-05-2025 take 1 mL by mouth o nce daily as needed for constipation Start: 01-05-2025 take 1 mL by mouth o nce daily as needed for constipation Magnesium Hydroxide (Dulcolax (Magnesium Hydroxide)) 400 mg/5 mL suspension Active 30 mL PO DAILY as needed for constipation January 05, 2025 12:00am mecobalamin (3 sources) Start: 01-05-2025 take 1 tablet by mouth once daily Mecobalamin (Vitamin B12) 500 mcg tablet,chewable Active 500 ug PO DAILY January 05, 2025 12:00am melatonin 5 mg oral tablet (20 sources) Start: 04-05-2024 melatonin 5 mg oral tablet Dose : 5 mg = 1 tab(s), Oral, qHS, PRN as needed for insomnia, 0 Refill(s) Start Date: 04/05/24 Status: Ordered Start: 10-28-2023 take 2 tablets by mo [facility] at bedtime Start: 10-28-2023 Start: 10-13-2023 melatonin 3 mg [...] Active Start: 08-16-[address] [facility] twice daily Start: 11-13-2023 Potassium Chlo ride (Eqv-K-Tab) 20 [...] supper, # 42 tab(s), 0 Refill(s), Pharmacy: [facility], 184, cm, 06/06/21 11:53:00 [...] 1 Start: 04-05-2024 take 1 tablet by sahra once daily at bedtime Senna Plus 50 [...] day(s), # 6 tab(s), 0 Refill(s), Pharmacy: [facility], 184, cm, 06/23/21 14:18:00 EST, Height, 149.4, kg, 06/26/21 8:54:00 EST, Dosing Weight Start Date: 06/26/21 Stop Date: 06/29/21 Status: Ordered tamsulosin hydrochloride 0.4 mg oral capsule (20 sources) alpha-Adrenergic Maren Start: 12-22-2023 take 1 capsule by mouth at bedtime tamsulosin HCl ( FLOMAX ORAL) Flomax Oral Active tamsulosin HCl ( FLOMAX ORAL) Flomax Oral 0 Active torsemide 10 mg oral tablet (20 sources) Loop Diuretic Start: 01-06-2025 take 1 tablet by sahra th once daily Start: 08-16-2024 End: 01-06-2025 take 1 tablet by mouth twice daily Torsemide 20 mg tablet Discontinued 20 mg PO TWICE A DAY August 16, 2024 1:00am January 06, 2025 10:54am HEART traZODone hydrochloride 100 mg oral tablet (20 sources) Serotonin Reuptake Inhibitor Start: 09-16-2024 take 1 tablet by mouth at bedtime Start: 09-16-2024 Start: 01-03-2024 End: 06-01-2024 Start: 07-29-2021 End: 06-01-2024 take 1 tablet by mouth at bedtime Trazodone 50 mg tablet Discontinued 50 mg PO AT BEDTIME January 03, 2024 12:00am June 01, 2024 1:48pm Start: 12-05-2020 End: 06-03-2021 traZODone 50 mg oral tablet Dose : 50 mg = 1 tab(s), Oral, qHS, # 30 tab(s), 5 Refill(s), Pharmacy: [facility], 185.9, cm, 12/05/20 8:53:00 EDT, Height, kg, 12/05/20 8:53:00 EDT, Dosing Weight Start Date: 12/05/20 Stop Date: 06/03/21 Status: Ordered vancomycin HCl in 5 % dextrose (VANCOMYCIN IN DEXTROSE 5 % INTRAVENOUS) (1 source) vancomycin HCl i n 5 % dextrose (VANCOMYCIN IN DEXTROSE 5 % INTRAVENOUS) Inject intravenously. Active vitamin b12 0.5 mg chewable tablet (15 sources) Vitamin B12 Start: 01-05-2025 take 1 tablet by mouth once daily Start: 06-01-2024 End: 01-05-2025 Cyanocobalamin (Vitamin B-12 ) 1,000 mcg capsule Discontinued 500 ug PO DAILY June 01, 2024 1:00am January 05, 2025 9:25am VITAMIN Vitamin C 250 mg oral tablet (5 [...] qDay, # 30 tab(s), 3 Refill(s), Pharmacy: [facility], 184, cm, 06/23/21 14:18:00 [...] BID, # 180 tab(s), 1 Refill(s), Pharmacy: [facility], 188, cm, 10/03/23 21:49:00 EDT, Height, kg, 10/04/23 5:18:00 EDT, Dosing Weight Start Date: 10/05/23 Status: Ordered Start: 04-14-2023 amiodarone 200 mg oral tablet Dose : 200 mg = 1 tab(s), Oral, BID, # 180 tab(s), 1 Refill(s), Pharmacy: [facility], 182.9, cm, 03/16/23 6:55:00 EDT, Height, kg, 03/16/23 6:55:00 EDT, Dosing Weight Start Date: 04/14/23 Status: Ordered Start: 11-19-2022 amiodarone 200 mg oral tablet Dose : 200 mg = 1 tab(s), Oral, BID, # 60 tab(s), 5 Refill(s), Pharmacy: [facility], 182.9, cm, 07/10/22 9:29:00 EST, Height, [...] Daily, # 30 tab(s), 0 Refill(s), Pharmacy: [facility], 188, cm, 08/07/20 12:54:00 EST, Height, kg, 08/07/20 12:54:00 EST, Dosing Weight Start Date: 12/02/20 Stop Date: 01/01/21 Status: Ordered amoxicillin 875 mg / clavulanate 125 mg oral tablet (14 sources) Penicillin-class Antibacterial Start: 01-07-2024 End: 06-01-2024 Amoxicillin-Pot Clavulanate 875-125 mg tablet Discontinued 1 {tbl} PO TWICE A DAY 14 January 07, 2024 12:00am June 01, 2024 1:40pm Start: 01-07-2024 End: 06-01-2024 Xubau-Xyyr-Wseao-Collag-Mv-M in (Santhosh (With Collagen)) 7-7-1.5 gram Powder In Packet (20 sources) Start: 01-08-2024 End: 06-01-2024 Yogdh-Gxeh-Sbtuz-Collag-Mv-M in (Santhosh (With Collagen)) 7-7-1.5 gram Powder In Packet Discontinued 1 NMA PO TWICE DAILY WITH MEALS 0 January 08, 2024 12:00am June 01, 2024 1:40pm Start: 01-08-2024 End: 06-01-2024 Ybdrc-Egbo-Rrrgf-Collag-Mv-M in (Santhosh (With Collagen)) 7-7-1.5 gram Powder In Packet Discontinued 1 NMA PO TWICE DAILY WITH MEALS 0 January 08, 2024 12:00am June 01, 2024 1:40pm Start: 11-03-2023 End: 12-22-2023 Uqypz-Lszp-Hrrbt-Collag-Mv-M in (Santhosh (With Collagen)) 7-7-1.5 gram Powder In Packet Discontinued 1 NMA PO TWICE DAILY WITH MEALS 0 November 03, 2023 12:00am December 22, 2023 3:17pm Start: 11-03-2023 End: 12-22-2023 Aekfn-Xfso-Txcjs-Collag-Mv-M in (Santhosh (With Collagen)) 7-7-1.5 gram Powder In Packet Discontinued 1 NMA PO TWICE DAILY WITH MEALS 0 November 03, 2023 12:00am December 22, 2023 3:17pm Start: 11-03-2023 Lbgpt-Xcdx-Ggx rb-Vrtqtb-Pi-Min (Santhosh (With Collagen)) 7-7-1.5 gram Powder In [...] Daily, # 90 tab(s), 3 Refill(s), Pharmacy: [facility], 185.5, cm, 05/26/21 10:58:00 EST, Height, kg, 05/26/21 10:58:00 EST, Dosing Weight Start Date: 05/26/21 Status: Ordered Start: 03-17-2019 take 1 tablet by sahra th once daily aspirin 81 mg ca p Take by mouth. Active budesonide 0.25 mg/ml inhalation suspension (15 sources) Corticosteroid Start: 11-03-2023 End: 06-01-2024 take [...] Daily, # 3 EA, 1 Refill(s), Pharmacy: [facility], 185.4, cm, 04/23/23 9:20:00 EDT, Height, kg, 04/23/23 9:20:00 EDT, Dosing Weight Start Date: 06/30/23 Stop Date: 12/27/23 Status: Ordered Start: 01-03-2023 End: 07-02-2023 take 1 dose by inhalation once daily budesonide-formoterol 160 mcg-4.5 mcg/inh Inhaler Dose = 2 puff(s), Inhalation, Daily, # 3 EA, 1 Refill(s), Pharmacy: [facility], 182.9, cm, 07/10/22 9:29:00 EST, Height, kg, 07/10/22 9:29:00 EST, Dosing Weight Start Date: 01/03/23 Stop Date: 07/02/23 Status: Ordered Start: 07-14-2021 End: 07-09-2022 take 1 dose by inhalation once daily budesonide-formoterol 160 mcg-4.5 mcg/inh Inhaler Dose = 2 puff(s), Inhalation, Daily, # 1 EA, 11 Refill(s), Pharmacy: [facility], 184.5, cm, 07/14/21 8:31:00 [...] BID, # 90 tab(s), 0 Refill(s), Pharmacy: [facility], 182.9, cm, 03/16/23 6:55:00 EDT, Height, [...] 2024 7:13am cefpodoxime 100 mg oral tablet (11 sources) Cephalosporin Antibacterial Start: 10-12-2024 End: 10-18-2024 [...] qDay, # 90 cap(s), 3 Refill(s), Pharmacy: [facility], 185.4, cm, 04/23/23 9:20:00 EDT, Height, kg, 04/23/23 9:20:00 EDT, Dosing Weight Start Date: 07/07/23 Status: Ordered Start: 01-20-2023 Cardizem CD 18 0 mg/24 hours oral capsule, extended release Dose : 180 mg = 1 cap(s), Oral, qDay, # 30 cap(s), 5 Refill(s), Pharmacy: [facility], 182.9, cm, 01/20/23 9:05:00 EDT, Height Start Date: 01/20/23 Status: Ordered docusate sodium 50 mg / sennosides, fdc 8.6 mg oral tablet (14 sources) Start: 06-01-2024 End: 08-16-2024 Sennosides-Docusate Sodium 8.6-50 mg tablet Discontinued 2 NMA PO AT BEDTIME June 01, 2024 1:00am August 16, 2024 9:34am empagliflozin 10 mg oral tablet (20 sources) Sodium-Glucose Cotransporter 2 Inhibitor Start: 02-01-2024 [...] Status: Ordered ergocalciferol 1.25 mg oral capsule (14 sources) Provitamin D2 Compound Start: 06-01-2024 End: [...] June 01, 2024 1:49pm Fluticasone Propion-Salmeter ol (19 sources) Corticosteroid, beta2-Adrenergic Agonist Start: 08-16-2024 End: [...] qDay, # 90 tab(s), 2 Refill(s), Pharmacy: [facility], 185.4, cm, 04/23/23 9:20:00 EDT, Height, kg, 04/23/23 9:20:00 EDT, Dosing Weight Start Date: 06/30/23 Status: Ordered Start: 04-14-2023 furosemide 40 mg oral tablet Dose : 40 mg = 1 tab(s), Oral, qDay, # 30 tab(s), 2 Refill(s), Pharmacy: [facility], 182.9, cm, 03/16/23 6:55:00 EDT, Height, kg, 03/16/23 6:55:00 EDT, Dosing Weight Start Date: 04/14/23 Status: Ordered Start: 01-04-2023 Lasix 40 mg or al tablet Dose : 40 mg = 1 tab(s), Oral, BID, # 30 tab(s), 3 Refill(s), Pharmacy: [facility], 182.9, cm, [...] 6:23pm sodium hypochlorite 2.5 mg/ml topical solution (14 sources) Start: 01-08-2024 End: 06-01-2024 Sodium Hypochlorite [...] sites, # 18 mL, 6 Refill(s), Pharmacy: [facility], 185.4, cm, 04/23/23 9:20:00 EDT, Height, kg, 04/23/23 9:20:00 EDT, Dosing Weight Start Date: 05/12/23 Status: Ordered Start: 09-28-2022 inject 1 dose by sub cutaneous injection once daily Tresiba FlexTouch 200 units/mL 3 mL subcutaneous solution Dose : 96 unit(s) =, Subcutaneous, qDay, rotate injection sites, # 18 mL, 6 Refill(s), Pharmacy: [facility], 182.9, cm, 07/10/22 9:29:00 EST, Height Start Date: 09/28/22 Status: Ordered Start: 09-28-2022 inject 1 dose by sub cutaneous injection once daily Tresiba FlexTouch 200 units/mL 3 mL subcutaneous solution Dose : 94 unit(s) =, Subcutaneous, qDay, rotate injection sites, # 18 mL, 6 Refill(s), Pharmacy: [facility], 182.9, cm, 07/10/22 9:29:00 EST, [...] card, # 24 mL, 3 Refill(s), Pharmacy: [facility], 185.9, cm, 12/05/20 8:53:00 [...] card, # 24 mL, 3 Refill(s), Pharmacy: [facility], 185.9, cm, 12/05/20 8:53:00 EDT, Height, kg, 12/05/20 8:53:00 EDT, Dosing Weight Start Date: 02/12/21 Stop Date: 06/12/21 Status: Ordered Start: 03-17-2019 End: 10-28-2023 inject 75 [IU] by subcutaneous injection once daily Insulin Detemir U-100 100 UNIT/ML solution Discontinued 75 U SQ DAILY March 17, 2019 12:00am October 28, 2023 6:23pm Insulin Glargine-Yfgn (1 source) Start: 11-03-2023 End: 06-01-2024 Insulin Glargine-Yfgn 100 unit/mL (3 mL) Insulin Pen Discontinued 40 U SC DAILY 0 0 November 03, 2023 12:00am June 01, 2024 1:44pm Insulin Glargine-Yfgn 100 unit/mL (3 mL) Insulin Pen (10 sources) Start: 11-03-2023 End: 06-01-2024 Insulin Glargine-Yfgn 100 unit/mL (3 mL) Insulin Pen Discontinued 40 U SC DAILY 0 0 November 03, 2023 12:00am June 01, 2024 1:44pm Start: 11-03-2023 End: 06-01-2024 Insulin Glargine-Yfgn 100 un it/mL (3 mL) Insulin Pen Discontinued 40 U SC DAILY 0 November 03, 2023 12:00am June 01, 2024 1:44pm lanolin 0.157 mg/mg / menthol 0.0044 mg/mg / petrolatum 0.24 mg/mg / zinc oxide 0.206 mg/mg topical ointment (5 sources) Start: 04-05-2024 Calmoseptine 0.44%-20.6% topical ointment Apply 1 priscilla, Topical, TID, PRN jorden buttocks, clean affected area before application, 0 Refill(s), Ointment, 133 Start Date: 04/05/24 Status: Ordered Repeat number: 1 levoFLOXacin 750 mg oral tablet (16 sources) Quinolone Antimicrobial Start: 01-07-2024 End: 06-01-2024 [...] BID, # 180 tab(s), 3 Refill(s), Pharmacy: [facility], 185.9, cm, 12/05/20 8:53:00 [...] affected area four times daily. Active Olme/Amlo/Hctz (13 sources) Start: 03-17-2019 End: 10-28-2023 Olme/Amlo/Hctz Discontinued 1 {tbl} PO DAILY March 17, 2019 12:00am October 28, 2023 6:24pm Start: 03-17-2019 End: 10-28-2023 take 1 tablet by mouth once daily Olme/Amlo/Hctz Discontinued 1 TABLET PO DAILY March 17, 2019 12:00am October 28, 2023 6:24pm oxyCODONE hydrochloride 5 mg oral tablet (15 sources) Opioid Agonist Start: 01-08-2024 End: 06-01-2024 [...] lower leg, initial encounter polyethylene glycol 3350 51750 mg powder for oral solution (20 sources) [...] 2019 12:00am October 28, 2023 6:22pm Semaglutide (1 source) Start: 11-29-2023 End: 12-22-2023 Semaglutide (Ozempic) 2 mg/dose (8 mg/3 mL) pen injector Discontinued 2 mg SC EVERY WEEK November 29, 2023 12:00am December 22, 2023 3:17pm Semaglutide (Ozempic) 2 mg/dose (8 mg/3 mL) pen injector (10 sources) Start: 11-29-2023 End: 12-22-2023 Semaglutide (Ozempic) 2 mg/dose (8 mg/3 mL) pen injector Discontinued 2 mg SC EVERY WEEK November 29, 2023 12:00am December 22, 2023 3:17pm Semaglutide 1 MG/0.75 ML pen injector (11 sources) Start: 03-17-2019 End: 10-28-2023 Semaglutide 1 MG/0.75 ML pen injector Discontinued 1 mg SQ EVERY WEEK March 17, 2019 12:00am October 28, 2023 6:22pm sertraline 50 mg oral tablet (19 sources) Serotonin Reuptake Inhibitor Start: 06-01-2024 End: [...] 1 sodium chloride 0.154 meq/ml nasal solution (14 sources) Start: 09-16-2024 End: 10-10-2024 Sodium Chloride [...] BID, # 1 EA, 5 Refill(s), Pharmacy: [facility], 188, cm, 02/28/20 14:36:00 EDT, Height, kg, 02/28/20 14:36:00 EDT, Dosing Weight Start Date: 05/23/20 Stop Date: 11/19/20 Status: Ordered Tirzepatide (2 sources) Start: 12-22-2023 End: 08-16-2024 Tirzepatide (Mounjaro) 5 mg/0.5 mL pen injector Discontinued 5 mg SC WE December 22, 2023 12:00am August 16, 2024 9:36am Start: 10-28-2023 End: 11-03-2023 Tirzepatide (Tirzepatide 5 M g/0.5 Ml Subcutaneous Pen Injector) 5 mg/0.5 mL pen injector Discontinued 5 mg SC EVERY WEEK October 28, 2023 12:00am November 03, 2023 4:38pm Tirzepatide (Mounjaro) 5 mg/ 0.5 mL pen injector (10 sources) Start: 12-22-2023 End: 08-16-2024 Tirzepatide (Mounjaro) 5 mg/ 0.5 mL pen injector Discontinued 5 mg SC WE December 22, 2023 12:00am August 16, 2024 9:36am Tirzepatide (Tirzepatide 5 Mg/0.5 Ml Subcutaneous Pen Injector) 5 mg/0.5 mL pen injector (12 sources) Start: 10-28-2023 End: 11-03-2023 Tirzepatide (Tirzepatide [...] 12:00am 200 ml vancomycin 5 mg/ml injection (9 sources) Glycopeptide Antibacterial Start: 10-18-2024 End: 01-05-2025 Vancomycin In Dextrose 5 % 1 gram/200 mL Piggyback Discontinued 1000 mg IV Q12H 8400 21 0 October 18, 2024 12:00am January 05, 2025 9:28am stop date 11/10/24. Dx: MRSA bacteremia. Weekly bmp, cbc, and vanc trough. Fax to [phone]. Routine picc care per protocol. Problems Active Problems Problem Classification Problem Date Documented Da te Episodic/Chronic Abdominal hernia (20 sources) Obstructed femoral hernia; Translations: [Recurrent right inguinal hernia] Onset: 5 11-02-2017 Episodic Abdominal pain (2 sources) Abdominal pain; Translations: [Unspecified abdominal pain] Onset: 4 Episodic Administrative/social admission (20 sources) Other reduced [...] Chronic Complication of device; implant or graft (20 sources) Complication of urinary catheter; Translations: [Unspecified complication of genitourinary prosthetic device, implant and graft, initial encounter] 10-10-2024 Episodic Conduction disorders (20 sources) Intraventricular conduction defect 06-09-2021 Chronic Congestive heart failure; nonhypertensive (20 sources) Heart failure; Translations: [Heart failure, unspecified] Onset: 4 11-16-2019 Chronic Crushing injury or internal injury (16 sources) Injury of kidney 06-06-2021 Episodic Deficiency and other anemia (14 sources) Anemia due to blood loss; Translations: [...] unspecified] Onset: Episodic Deficiency and other anemia (16 sources) Chronic anemia; Translations: [Anemia, unspecified] 10-28-2023 Episodic Deficiency and other anemia (9 sources) Iron deficiency anemia 11-11-2023 Episodic Delirium, dementia, and amnestic and other cognitive disorders (2 sources) Dementia with behavioral disturbance; Translations: [Dementia with behavioral disturbance] 03-12-2025 Chronic Diabetes mellitus with complications (20 sources) 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; Translations: [Chronic kidney disease due to type 2 diabetes mellitus] Onset: 4 06-16-2021 Chronic Diabetes mellitus without complication (20 sources) Type 2 diabetes mellitus; Translations: [Type 2 diabetes mellitus without complication] Onset: 4 11-16-2019 Chronic Diverticulosis and diverticulitis (16 sources) Diverticular disease; Translations: [Diverticulosis of intestine, part unspecified, without perforation or abscess without bleeding] Onset: 5 01-16-2024 Chronic E Codes: Fall (14 sources) Fall; Translations: [Unspecified fall, initial encounter] 09-17-2024 Episodic Essential hypertension (20 sources) Hypertensive disorder; Translations: [Benign essential hypertension] Onset: 4 04-05-2016 Chronic Heart valve disorders (20 sources) Aortic valve disorder; Translations: [History of aortic valve replacement] Onset: 5 01-17-2020 Chronic Comment on above: 2016- AVR 12/8/16 27mm Mosaic Heart valve disorders (20 sources) Heart murmur; Translations: [Cardiac murmur, unspecified] 03-09-2022 Episodic Hyperplasia of prostate (20 sources) Large prostate ; Translations: [Benign prostatic hypertrophy with outflow obstruction] Onset: 5 04-05-2016 Chronic Hypertension with complications and secondary hypertension (2 sources) Hypertensive heart failure; Translations: [Hypertensive heart disease with heart failure] Chronic Malaise and fatigue (19 sources) Asthenia; Translations: [Weakness] Onset: 4 Episodic Mood disorders (1 source) Depressive disorder 10-24-2024 Chronic Mood disorders (1 source) Mood disorders; Translations: [Depression, unspecified] Onset: 5 Nonmalignant breast conditions (20 sources) Abscess of breast 02-21-2021 Episodic Open wounds of extremities (16 sources) Open wound of lower leg; Translations: [Unspecified open wound, unspecified lower leg, initial encounter] Onset: 3 Episodic Open wounds of head; neck; and trunk (1 source) Laceration of head; Translations: [Laceration without foreign body of unspecified part of head, initial encounter] Episodic Other aftercare (20 sources) Surgical follow-up 03-19-2021 Episodic Other aftercare (14 sources) Long-term current use of anticoagulant; 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] 09-17-2024 Episodic Other circulatory disease (20 sources) Other specified peripheral vascular diseases; Translations: [Peripheral vascular disease] Onset: 5 08-16-2024 Chronic Other circulatory disease (3 sources) Peripheral vascular disease; Translations: [Other specified peripheral vascular diseases] 10-20-2024 Chronic Other circulatory disease (2 sources) Other specified peripheral vascular diseases; Translations: [Other specified peripheral vascular diseases] Onset: 5 Chronic Other circulatory disease (14 sources) H/O: heart failure; Translations: [Personal history of other diseases of the circulatory system] 06-01-2024 Episodic Other circulatory disease (2 sources) Personal history of other diseases of the circulatory system; Translations: [Personal history of other diseases of the circulatory system] Onset: 5 Episodic Other connective tissue disease (14 sources) Swelling of left lower limb; Translations: [Other specified soft tissue disorders] 01-16-2024 Episodic Other connective tissue disease (14 sources) Swelling of right lower limb; Translations: [Other specified soft tissue disorders] 01-16-2024 Episodic Other connective tissue disease (2 sources) Other specified soft tissue disorders; Translations: [Other specified soft tissue disorders] Onset: 5 Episodic Other diseases of kidney and ureters [...] and ureter; Translations: [Renal mass, left] Onset: Chronic Other diseases of kidney and ureters (14 sources) Acquired renal cystic disease; Translations: [Cyst of kidney, acquired] 09-17-2024 Episodic Other diseases of kidney and ureters (14 sources) Acute renal insufficiency; Translations: [Disorder of kidney and ureter, unspecified] 09-17-2024 Episodic Other diseases of veins and lymphatics (14 sources) Lymphedema of left lower limb; Translations: [Lymphedema, not elsewhere classified] 01-16-2024 Chronic Other diseases of veins and lymphatics (14 sources) Lymphedema of right lower limb; Translations: [...] (peripheral)] Onset: 5 Episodic Other endocrine disorders (15 sources) Adrenal mass; Translations: [Disorder of adrenal gland, unspecified] Onset: 5 09-17-2024 Chronic Other endocrine disorders (1 source) Disorder of adrenal gland, unspecified; Translations: [Adrenal nodule (HCC)] Onset: 5 Chronic Other gastrointestinal disorders (2 sources) Constipation; Translations: [Constipation, unspecified] 03-12-2025 Episodic Other gastrointestinal disorders (2 sources) Personal history of other diseases of the digestive system; Translations: [Personal history of other diseases of the digestive system] Onset: 5 Episodic Other injuries and conditions due to external causes (14 sources) Local infection of wound; Translations: [Other [...] Chronic Other nutritional; endocrine; and metabolic disorders (15 sources) Body mass index 40+ - severely obese; Translations: [Body mass index (BMI) 45.0-49.9, adult] Chronic Other nutritional; endocrine; and metabolic disorders (16 sources) Morbid obesity; Translations: [Morbid (severe) obesity [...] conditions (not mental disorders or infectious disease) (15 sources) Encounter for screening for malignant neoplasm of prostate; Translations: [Screening for malignant neoplasm done] Episodic Other skin disorders (20 sources) Epidermoid cyst 02-26-2021 Episodic Mariza-; endo-; and myocarditis; cardiomyopathy (except that caused by tuberculosis or sexually transmitted disease) (20 sources) Heart valve disorder; Translations: [Endocarditis, valve unspecified] Onset: 5 11-02-2017 Chronic 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 Peripheral and visceral atherosclerosis (18 sources) Vascular disorder of lower extremity; Translations: [...] unspecified] Onset: 4 Episodic Residual codes; unclassified (16 sources) Localized edema; Translations: [Localized edema] 03-22-2019 Episodic Residual codes; unclassified (1 source) Illness; Translations: [Illness, unspecified] Onset: 4 Episodic Residual codes; unclassified (1 source) Transient alteration of awareness; Translations: [Transient alteration of awareness] Onset: 4 Episodic Residual codes; unclassified (14 sources) Urinary catheter in situ; Translations: [Presence of other specified devices] 09-17-2024 Episodic Residual codes; unclassified (14 sources) Edema of left lower leg; Translations: [Localized edema] 01-16-2024 Episodic Residual codes; unclassified (14 sources) Edema of right lower leg; Translations: [Localized edema] 01-16-2024 Episodic Residual codes; unclassified (14 sources) History of colectomy; Translations: [Acquired absence of other specified parts of digestive tract] 01-16-2024 Episodic Residual codes; unclassified (14 sources) Altered mental status; Translations: [Altered mental [...] Unclassified (1 source) Please follow-up at the wound care center on 06/07/2024. Please show up at your already scheduled appointment time. Past or Other Problems Problem Classification Problem Date Documented Da te Episodic/Chronic Acute and unspecified renal failure (15 sources) Acute renal failure syndrome; Translations: [Acute kidney failure, unspecified] Onset: 01-11-2025 01-05-2025 Episodic Bacterial infection; unspecified site (20 sources) Blood [...] 10-10-2024 Episodic Skin and subcutaneous tissue infections (19 sources) Cellulitis of lower limb; Translations: [Cellulitis of right lower limb] Onset: 11-13-2023 Episodic Urinary tract infections (20 sources) Acute urinary tract infection; Translations: [Urinary tract infection, site not specified] Onset: 10-18-2024 09-17-2024 Episodic Results Test Name Value Interpretation Reference Range Facility Urine Cultureon 03-13-2025 [facility] Culture exhibits no growth. Normal [facility] Comment on above: Performed By: #### M [id number] ####[facility] [id number] [place], [place], [id number] Bilirubin Test strip Ql (U)O rdered By: Malinda Ho on 03-12-2025 Bilirubin Ql (U) Negative Negative [facility] Ketones Test strip Ql (U)Ord ered By: Malinda Ho on 03-12-2025 Ketones Ql (U) Negative Negative [facility] L501.4021on 03-12-2025 Trop T High Sen 50 ng/L High <=22 [facility] Comment on above: Performed By: #### L [id number] ####[facility] [id number] [place], [place], [id number] [id number] 03-12-2025 M100.678 Pending SARS-CoV-2 (COVID 19) Negative INFLUENZA A Negative INFLUENZA B Negative RSV PCR Negative Normal [facility] Comment on above: Performed By: #### L 400.0001, M100.678 ####[facility] [id number] [place], [place], [id number] Microscopic analysis of urin e for red blood cells (RBC)Ordered By: Malinda Ho on 03-12-2025 Microscopic analysis of urine for red blood cells (RBC) 10-25 SEEN /hpf 0-5 [facility] Mucus LM Ql (Urine sed)Order ed By: Malinda Ho on 03-12-2025 Mucus Ql (Urine sed) 0 SEEN /hpf [facility] Nitrite Test strip Ql (U)Ord ered By: Malinda Ho on 03-12-2025 Nitrite Ql (U) Positive High Negative [facility] Protein Test strip Ql (U)Ord ered By: Malinda Ho on 03-12-2025 Protein Ql (U) 30 mg/dl High Negative [facility] Squamous epithelial cells de tection in urine sediment by light microscopyOrdered By: Malinda Ho on 03-12-2025 Epithelial cells.squamous LM Ql (Urine sed) 0-5 SEEN /hpf 0-5 [facility] Troponin T HS 2 HRon 025 Trop T High Sen 50 ng/L High <=22 [facility] Comment on above: Performed By: #### L 499.0042 ####[facility] [id number] [place], [place], [id number] Troponin T HS 4 HRon 025 Trop T High Sen 46 ng/L High <=22 [facility] Comment on above: Performed By: #### L 499.0043 ####[facility] [id number] [place], [place], [phone] Troponin T.cardiac [Mass/vol ume] in Serum or Plasma by High sensitivity methodOrdered By: Malinda Ho on 03-12-2025 Troponin T.cardiac High sensitivity method [Mass/Vol] 46 ng/L High <22 [facility] Troponin T.cardiac High sensitivity method [Mass/Vol] 50 ng/L High <22 [facility] Urinalysis, Completeon 03-12 BACTERIA 3+ /hpf Normal None Seen [facility] Comment on above: Order Comment: CLEAN CATCH Performed By: #### L 400.0001, M100.678 ####[facility] [id number] [place], [place], [id number] EPI,SQUAMOUS 0-5 SEEN Normal 0-5 [facility] Comment on above: Order Comment: CLEAN CATCH Performed By: #### L 400.0001, ####[facility] [id number] [place], [address] RBC 10-25 SEEN Normal 0-5 [facility] Comment on above: Order Comment: CLEAN CATCH Performed By: #### L 400.0001, ####[facility] [id number] [place], [address] WBC >100 SEEN Normal 0-5 [facility] Comment on above: Order Comment: CLEAN CATCH Performed By: #### L 400.0001, ####[facility] [address] [place], [address] BILIRUBIN URINE Negative Normal Negative [facility] Comment on above: Order Comment: CLEAN CATCH Performed By: #### L 400.0001, ####[facility] [address] [place], [address] Clarity (U) Cloudy Normal Clear [facility] Comment on above: Order Comment: CLEAN CATCH Performed By: #### L 400.0001, ####[facility] [address] [place], [address] Color (U) Yellow Normal Yellow [facility] Comment on above: Order Comment: CLEAN CATCH Performed By: #### L 400.0001, ####[facility] [address] [place], [address] GLUCOSE, UR Normal Normal Normal [facility] Comment on above: Order Comment: CLEAN CATCH Performed By: #### L 400.0001, ####[facility] [address] [place], [address] KETONE UR Negative Normal Negative [facility] Comment on above: Order Comment: CLEAN CATCH Performed By: #### L 400.0001, ####[facility] [address] [place], [address] LEUK ESTERASE 500 /ul Abnormal Negative [facility] Comment on above: Order Comment: CLEAN CATCH Performed By: #### L 400.0001, ####[facility] [address] [place], [address] Nitrite Ql (U) Positive Abnormal Negative [facility] Comment on above: Order Comment: CLEAN CATCH Performed By: #### L 400.0001, ####[facility] [address] [place], [address] OCCULT BLOOD-UR 250 /ul Abnormal Negative [facility] Comment on above: Order Comment: CLEAN CATCH Performed By: #### L 400.0001, ####[facility] [address] [place], [address] pH UR 6.5 Normal 5.0 - 8.0 [facility] Comment on above: Order Comment: CLEAN CATCH Performed By: #### L 400.0001, ####[facility] [address] [place], [address] PROT DIPSTX 30 mg/dl Abnormal Negative [facility] Comment on above: Order Comment: CLEAN CATCH Performed By: #### L 400.0001, ####[facility] [address] [place], [address] SP.GR. DIPSTX 1.010 Normal 1.002-1.030 [facility] Comment on above: Order Comment: CLEAN CATCH Performed By: #### L 400.0001, ####[facility] [address] [place], [address] UROBILI Normal Normal Normal [facility] Comment on above: Order Comment: CLEAN CATCH Performed By: #### L 400.0001, ####[facility] [address] [place], [address] Mucus Ql (Urine sed) 0 SEEN Normal [facility] Comment on above: Order Comment: CLEAN CATCH Performed By: #### L 400.0001, M100.678 ####[facility] [address] [place], [address] Urine clarityOrdered By: Deepti Ho on 03-12-2025 Clarity (U) Cloudy Clear [facility] Urine color determinationOrd ered By: Malinda Ho on 03-12-2025 Color (U) Yellow Yellow [facility] Urine cultureOrdered By: Deepti Ho on 03-12-2025 Bacteria identified Cx Nom (U) Culture exhibits no growth. [facility] Urine glucose detectionOrder ed By: Malinda Ho on 03-12-2025 Glucose Ql (U) Normal mg/dl Normal [facility] Urine leukocyte esterase det ection by dipstickOrdered By: Malinda Ho on 03-12-2025 Leukocyte esterase Test strip Ql (U) 500 /ul High Negative [facility] Urine pHOrdered By: Malinda campbell on 03-12-2025 pH (U) 6.5 [pH] 5.0 - 8.0 [facility] Urine sediment bacteria coun t by microscopy (number/high power field)Ordered By: Malinda Ho on 03-12-2025 Bacteria LM.HPF (Urine sed) [#/Area] 3 /[HPF] None Seen [facility] Urine specific gravity measu rementOrdered By: Malinda Ho on 03-12-2025 Specific gravity (U) [Rel density] 1.010 1.002-1.030 [facility] Urine urobilinogen measureme ntOrdered By: Malinda Ho on 03-12-2025 Urobilinogen Ql (U) Normal mg/dl Normal [facility] White blood cell countOrdere d By: Malinda Ho on 03-12-2025 White blood cell count >100 SEEN /hpf 0-5 [facility] 12 Lead EKGon 03-11-2025 12 Lead EKG Normal [facility] Absolute lymphocyte countOrd ered By: Malinda Ho on 03-11-2025 Lymphocytes Auto (Unsp spec) [#/Vol] 1.39 10*3/uL 0.83-4.51 [facility] Absolute neutrophil countOrd ered By: Malinda Ho on 03-11-2025 Neutrophils (Bld) [#/Vol] 2.5 10*3/uL 2.0-7.7 [facility] Activated partial thrombopla stin time (aPTT) in platelet poor plasma by coagulation aOrdered By: Malinda Ho on 03-11-2025 aPTT Coag (PPP) [Time] 38.0 s High 24.1-36.2 [facility] Acute [facility]domen Inc Cheston Acute Abdomen Inc Chest Normal [facility] Ammoniaon 03-11-2025 Ammonia (P) [Moles/Vol] 17.6 umol/L Normal 16-60 [facility] Comment on above: Performed By: #### L 501.2450, L503.5510, L300.4310, L500.4050, L300.3900, L100.0100 ####[facility] [address] [place], [address] Anion gap in Serum or Plasma Ordered By: Malinda Ho on 03-11-2025 Anion gap [Moles/Vol] 10 mmol/L 5-15 [facility] Automated lymphocyte count a s percentage of total leukocytesOrdered By: Malinda Ho on 03-11-2025 Lymphocytes/100 WBC Auto (Unsp spec) 27.5 % 19-41 [facility] BUN/creatinine ratioOrdered By: Malinda Ho on 03-11-2025 Urea nitrogen/Creatinine [Mass ratio] 24.9 mg/mg High 10-20 [facility] Basophil percentageOrdered B y: Malinda Ho on 03-11-2025 Basophils/100 WBC (Bld) 0.8 % 0-1 [facility] Bilirubin, totalOrdered By: Malinda Ho on 03-11-2025 Bilirubin [Mass/Vol] 0.22 mg/dL 0.00-1.30 [facility] Brain/Head without Contrasto n 03-11-2024 Brain/Head without Contrast Normal [facility] CBC W/Diff, Automatedon 08- Absolute Lymph 1.39 X10 3/uL Normal 0.83-4.51 [facility] Comment on above: Performed By: #### L 501.2450, L503.5510, L300.4310, L500.4050, L300.3900, L100.0100 ####[facility] [address] [place], [address] Absolute Neut 2.5 X10 3/uL Normal 2.0-7.7 [facility] Comment on above: Performed By: #### L 501.2450, L503.5510, L300.4310, L500.4050, L300.3900, L100.0100 ####[facility] [address] [place], [address] Basophils/100 WBC (Bld) 0.8 % Normal 0-1 [facility] Comment on above: Performed By: #### L 501.2450, L503.5510, L300.4310, L500.4050, L300.3900, L100.0100 ####[facility] [address] [place], [address] Eosinophils/100 WBC (Bld) 5.1 % High 0-5 [facility] Comment on above: Performed By: #### L 501.2450, L503.5510, L300.4310, L500.4050, L300.3900, L100.0100 ####[facility] [address] [place], [address] Erythrocyte distribution width (RBC) [Ratio] 15.9 % High 11.6-14.6 [facility] Comment on above: Performed By: #### L 501.2450, L503.5510, L300.4310, L500.4050, L300.3900, L100.0100 ####[facility] [address] [place], [address] Hematocrit (Bld) [Volume fraction] 34.4 % Low 40-54 [facility] Comment on above: Performed By: #### L 501.2450, L503.5510, L300.4310, L500.4050, L300.3900, L100.0100 ####[facility] [address] [place], [address] Hemoglobin (Bld) [Mass/Vol] 10.7 g/dL Low 13.0-16.5 [facility] Comment on above: Performed By: #### L 501.2450, L503.5510, L300.4310, L500.4050, L300.3900, L100.0100 ####[facility] [address] [place], [address] IG% 0.200 Normal 0.0-0.9 [facility] Comment on above: Result Comment: IG% - Immature Granulocytes (promyelocytes, myelocytes andmetamyelocytes) > 1% indicates that a LEFT SHIFT is Present. Performed By: #### L 501.2450, L503.5510, L300.4310, L500.4050, L300.3900, L100.0100 ####[facility] [address] [place], [address] Lymphocytes/100 WBC (Bld) 27.5 % Normal 19-41 [facility] Comment on above: Performed By: #### L 501.2450, L503.5510, L300.4310, L500.4050, L300.3900, L100.0100 ####[facility] [address] [place], [address] MCH (RBC) [Entitic mass] 26.6 pg Low 27.0-32.0 [facility] Comment on above: Performed By: #### L 501.2450, L503.5510, L300.4310, L500.4050, L300.3900, L100.0100 ####[facility] [address] [place], [address] MCHC (RBC) [Mass/Vol] 31.1 g/dL Low 32-36 [facility] Comment on above: Performed By: #### L 501.2450, L503.5510, L300.4310, L500.4050, L300.3900, L100.0100 ####[facility] [address] [place], [address] MCV (RBC) [Entitic vol] 85.6 fL Normal 80-94 [facility] Comment on above: Performed By: #### L 501.2450, L503.5510, L300.4310, L500.4050, L300.3900, L100.0100 ####[facility] [address] [place], [address] Monocytes/100 WBC (Bld) 17.2 % High 0-10 [facility] Comment on above: Performed By: #### L 501.2450, L503.5510, L300.4310, L500.4050, L300.3900, L100.0100 ####[facility] [address] [place], [address] Neutrophils/100 WBC (Bld) 49.2 % Normal 47-70 [facility] Comment on above: Performed By: #### L 501.2450, L503.5510, L300.4310, L500.4050, L300.3900, L100.0100 ####[facility] [address] [place], [address] Nucleated RBC (Bld) [#/Vol] 0 10*3/uL Normal 0-5 [facility] Comment on above: Performed By: #### L 501.2450, L503.5510, L300.4310, L500.4050, L300.3900, L100.0100 ####[facility] [address] [place], [address] Platelet mean volume (Bld) [Entitic vol] 12.4 fL High 6.2-12.0 [facility] Comment on above: Performed By: #### L 501.2450, L503.5510, L300.4310, L500.4050, L300.3900, L100.0100 ####[facility] [address] [place], [address] Platelets (Bld) [#/Vol] 171 10*3/uL Normal 150-450 [facility] Comment on above: Performed By: #### L 501.2450, L503.5510, L300.4310, L500.4050, L300.3900, L100.0100 ####[facility] [address] [place], [address] RBC (Bld) [#/Vol] 4.02 10*6/uL Low 4.6-6.2 [facility] Comment on above: Performed By: #### L 501.2450, L503.5510, L300.4310, L500.4050, L300.3900, L100.0100 ####[facility] [address] [place], [address] RDW SD 50.6 fl High 35.1-43.9 [facility] Comment on above: Performed By: #### L 501.2450, L503.5510, L300.4310, L500.4050, L300.3900, L100.0100 ####[facility] [address] [place], [address] WBC (Bld) [#/Vol] 5.1 10*3/uL Normal 4.4-11.0 [facility] Comment on above: Performed By: #### L 501.2450, L503.5510, L300.4310, L500.4050, L300.3900, L100.0100 ####[facility] [address] [place], [address] Carbon dioxide, total [Moles /volume] in Central venous bloodOrdered By: Malinda Ho on 03-11-2025 CO2 [Moles/Vol] 24.3 mmol/L 21.0-32.0 [facility] Chloride assayOrdered By: Mason Ho on 03-11-2025 Chloride [Moles/Vol] 104 mmol/L 98-108 [facility] Comprehensive Metabolic Prof ilon 03-11-2025 Albumin [Mass/Vol] 3.5 g/dL Normal 3.4-4.8 [facility] Comment on above: Performed By: #### L 501.2450, L503.5510, L300.4310, L500.4050, L300.3900, L100.0100 ####[facility] [address] [place], [address] Albumin/Globulin [Mass ratio] 1.2 {ratio} Normal 0.9-2.4 [facility] Comment on above: Performed By: #### L 501.2450, L503.5510, L300.4310, L500.4050, L300.3900, L100.0100 ####[facility] [address] [place], [address] ALK PHOS 75 U/L Normal 40-129 [facility] Comment on above: Performed By: #### L 501.2450, L503.5510, L300.4310, L500.4050, L300.3900, L100.0100 ####[facility] [address] [place], [address] ALT [Catalytic activity/Vol] 18 U/L Normal <=46 [facility] Comment on above: Performed By: #### L 501.2450, L503.5510, L300.4310, L500.4050, L300.3900, L100.0100 ####[facility] [address] [place], [address] AST [Catalytic activity/Vol] 25 U/L Normal <=37 [facility] Comment on above: Performed By: #### L 501.2450, L503.5510, L300.4310, L500.4050, L300.3900, L100.0100 ####[facility] [address] [place], [address] Bilirubin [Mass/Vol] 0.22 mg/dL Normal 0.00-1.30 [facility] Comment on above: Performed By: #### L 501.2450, L503.5510, L300.4310, L500.4050, L300.3900, L100.0100 ####[facility] [address] [place], [address] BUN/CRE 24.9 RATIO High 10-20 [facility] Comment on above: Performed By: #### L 501.2450, L503.5510, L300.4310, L500.4050, L300.3900, L100.0100 ####[facility] [address] [place], [address] Calcium [Mass/Vol] 9.2 mg/dL Normal 7.6-11.0 [facility] Comment on above: Performed By: #### L 501.2450, L503.5510, L300.4310, L500.4050, L300.3900, L100.0100 ####[facility] [address] [place], [address] Chloride [Moles/Vol] 104 mmol/L Normal 98-108 [facility] Comment on above: Performed By: #### L 501.2450, L503.5510, L300.4310, L500.4050, L300.3900, L100.0100 ####[facility] [address] [place], [address] CO2 [Moles/Vol] 24.3 mmol/L Normal 21.0-32.0 [facility] Comment on above: Performed By: #### L 501.2450, L503.5510, L300.4310, L500.4050, L300.3900, L100.0100 ####[facility] [address] [place], [address] Creatinine [Mass/Vol] 1.17 mg/dL Normal 0.70-1.20 [facility] Comment on above: Performed By: #### L 501.2450, L503.5510, L300.4310, L500.4050, L300.3900, L100.0100 ####[facility] [address] [place], [address] ECRCL 81.96 ml/min Normal 50-250 [facility] Comment on above: Performed By: #### L 501.2450, L503.5510, L300.4310, L500.4050, L300.3900, L100.0100 ####[facility] [address] [place], [address] GAP 10 Normal 5-15 [facility] Comment on above: Performed By: #### L 501.2450, L503.5510, L300.4310, L500.4050, L300.3900, L100.0100 ####[facility] [address] [place], [address] GFR/1.73 sq M.predicted among non-blacks MDRD (S/P/Bld) [Vol rate/Area] 67 mL/min/{1.73_m2} Normal >60 [facility] Comment on above: Result Comment: mL/m in/1.73m2 CKD-EPI Creatinine Equation (2020) Performed By: #### L 501.2450, L503.5510, L300.4310, L500.4050, L300.3900, L100.0100 ####[facility] [address] [place], [address] Globulin (S) [Mass/Vol] 2.9 g/dL Normal 2.2-4.2 [facility] Comment on above: Performed By: #### L 501.2450, L503.5510, L300.4310, L500.4050, L300.3900, L100.0100 ####[facility] [address] [place], [address] Glucose [Mass/Vol] 103 mg/dL High 70-99 [facility] Comment on above: Performed By: #### L 501.2450, L503.5510, L300.4310, L500.4050, L300.3900, L100.0100 ####[facility] [address] [place], [address] Potassium [Moles/Vol] 5.3 mmol/L High 3.3-5.1 [facility] Comment on above: Performed By: #### L 501.2450, L503.5510, L300.4310, L500.4050, L300.3900, L100.0100 ####[facility] [address] [place], [address] Sodium [Moles/Vol] 138 mmol/L Normal 133-145 [facility] Comment on above: Performed By: #### L 501.2450, L503.5510, L300.4310, L500.4050, L300.3900, L100.0100 ####[facility] [address] [place], [address] T PROT 6.4 g/dL Normal 5.9-8.4 [facility] Comment on above: Performed By: #### L 501.2450, L503.5510, L300.4310, L500.4050, L300.3900, L100.0100 ####[facility] [address] [place], [place], [id number] Urea nitrogen [Mass/Vol] 29 mg/dL High 4-19 [facility] Comment on above: Performed By: #### L 501.2450, L503.5510, L300.4310, L500.4050, L300.3900, L100.0100 ####[facility] [address] [place], [place], [id number] Emergency Department Summary on 03-11-2025 Emergency Department Summary Normal [facility] Eosinophil percentageOrdered By: Malinda Ho on 03-11-2025 Eosinophils/100 WBC (Bld) 5.1 % High 0-5 [facility] Erythrocyte distribution wid th ratioOrdered By: Malinda Ho on 03-11-2025 Erythrocyte distribution width (RBC) [Ratio] 15.9 % High 11.6-14.6 [facility] Erythrocyte distribution wid th standard deviationOrdered By: Malinda Ho on 03-11-2025 Erythrocyte distribution width (RBC) [Ratio] 50.6 fl High 35.1-43.9 [facility] Glomerular filtration rate ( GFR) estimation/1.73 sq m using serum, plasma, or whole bOrdered By: Malinda Ho on 03-11-2025 GFR/1.73 sq M.predicted among non-blacks MDRD (S/P/Bld) [Vol rate/Area] 67 mL/min/{1.73_m2} >60 [facility] Comment on above: mL/min/1.73m2 CKD-EP I Creatinine Equation (2020) Hematocrit Auto (Bld) [Volum e fraction]Ordered By: Malinda Ho on 03-11-2025 Hematocrit (Bld) [Volume fraction] 34.4 % Low 40-54 [facility] Hemoglobin measurementOrdere d By: Malinda Ho on 03-11-2025 Hemoglobin (Bld) [Mass/Vol] 10.7 g/dL Low 13.0-16.5 [facility] Immature granulocytes/100 WB C Auto (Bld)Ordered By: Malinda Ho on 03-11-2025 Immature granulocytes/100 WBC (Bld) 0.200 % 0.0-0.9 [facility] Comment on above: IG% - Immature Granu locytes (promyelocytes, myelocytes and metamyelocytes) > 1% indicates that a LEFT SHIFT is Present. Influenza virus A and B and SARS-CoV-2 (COVID-19) and Respiratory syncytial virus RNAOrdered By: Malinda Ho on 03-11-2025 SARS-CoV-2 (COVID-19) RNA SUMAN+probe Ql (Unsp spec) [facility] International normalized rat io (INR) calculationOrdered By: Malinda Ho on 03-11-2025 INR Coag (Bld) [Relative time] 1.3 {INR} [facility] Laboratory - Chemistry and C hemistry - challengeOrdered By: Malinda Ho on 03-11-2025 AST [Catalytic activity/Vol] 25 U/L <38 [facility] Lipaseon 03-11-2025 Lipase [Catalytic activity/Vol] 49 U/L Normal 13-75 [facility] Comment on above: Result Comment: Malinda duenas note:LIPASE revised reference range effective 22.New Lipase methodology. Expected to produce lower valuesthan the previous assay method.NEW Reference Range: 13 - 75 U/L Performed By: #### L 501.2450, L503.5510, L300.4310, L500.4050, L300.3900, L100.0100 ####[facility] [address] [place], [place], [id number] Lipase measurementOrdered By : Malinda Ho on 03-11-2025 Lipase [Catalytic activity/Vol] 49 U/L 13-75 [facility] Comment on above: Please note:LIPASE r evised reference range effective 22. New Lipase methodology. Expected to produce lower values than the previous assay method. NEW Reference Range: 13 - 75 U/L MCV (mean corpuscular volume ) determinationOrdered By: Malinda Ho on 03-11-2025 MCV (RBC) [Entitic vol] 85.6 fL 80-94 [facility] Mean corpuscular hemoglobin (MCH) determinationOrdered By: Malinda Ho on 03-11-2025 MCH (RBC) [Entitic mass] 26.6 pg Low 27.0-32.0 [facility] Mean corpuscular hemoglobin concentration (MCHC) determinationOrdered By: Malinda Ho on 03-11-2025 MCHC (RBC) [Mass/Vol] 31.1 g/dL Low 32-36 [facility] Mean platelet volume determi nationOrdered By: Malinda Ho on 03-11-2025 Platelet mean volume (Bld) [Entitic vol] 12.4 fL High 6.2-12.0 [facility] Monocyte percentageOrdered B y: Malinda Ho on 03-11-2025 Monocytes/100 WBC (Bld) 17.2 % High 0-10 [facility] Neutrophil percentageOrdered By: Malinda Ho on 03-11-2025 Neutrophils/100 WBC (Bld) 49.2 % 47-70 [facility] Nucleated red blood cell per centageOrdered By: Malinda Ho on 03-11-2025 Nucleated RBC/100 WBC (Bld) [Ratio] 0 % 0-5 [facility] Partial Thromboplast Timeon 03-11-2025 aPTT Coag (Bld) [Time] 38.0 s High 24.1-36.2 [facility] Comment on above: Performed By: #### L 501.2450, L503.5510, L300.4310, L500.4050, L300.3900, L100.0100 ####[facility] [address] [place], [place], [id number] Platelet countOrdered By: Mason Ho on 03-11-2025 Platelets (Bld) [#/Vol] 171 10*3/uL 150-450 [facility] Potassium measurement (mass/ volume)Ordered By: Malinda Ho on 03-11-2025 Potassium (Unsp spec) [Mass/Vol] 5.3 mmol/L High 3.3-5.1 [facility] Prothrombin Time w/INRon INR Coag (PPP) [Relative time] 1.3 {INR} Normal [facility] Comment on above: Performed By: #### L 501.2450, L503.5510, L300.4310, L500.4050, L300.3900, L100.0100 ####[facility] [address] [place], [place], [id number] PT Coag (PPP) [Time] 16.1 s High 11.7-14.9 [facility] Comment on above: Performed By: #### L 501.2450, L503.5510, L300.4310, L500.4050, L300.3900, L100.0100 ####[facility] [id number] [place], [place], [id number] Prothrombin timeOrdered By: Malinda Ho on 03-11-2025 PT Coag (PPP) [Time] 16.1 s High 11.7-14.9 [facility] RBC Auto (Bld) [#/Vol]Ordere d By: Malinda Ho on 03-11-2025 RBC (Bld) [#/Vol] 4.02 10*6/uL Low 4.6-6.2 [facility] Serum creatinine measurement (mass/volume)Ordered By: Malinda Ho on 03-11-2025 Creatinine [Mass/Vol] 1.17 mg/dL 0.70-1.20 [facility] Serum globulin measurementOr dered By: Malinda Ho on 03-11-2025 Globulin (S) [Mass/Vol] 2.9 g/dL 2.2-4.2 [facility] Serum glucose measurement (m ass/volume)Ordered By: Malinda Ho on 03-11-2025 Glucose [Mass/Vol] 103 mg/dL High 70-99 [facility] Serum or plasma alanine matson otransferase (ALT) measurementOrdered By: Malinda Ho on 03-11-2025 ALT [Catalytic activity/Vol] 18 U/L <47 [facility] Serum or plasma albumin isidro urement (mass/volume)Ordered By: Malinda Ho on 03-11-2025 Albumin [Mass/Vol] 3.5 g/dL 3.4-4.8 [facility] Serum or plasma albumin/glob ulin mass ratioOrdered By: Malinda Ho on 03-11-2025 Albumin/Globulin [Mass ratio] 1.2 {ratio} 0.9-2.4 [facility] Serum or plasma alkaline yumiko sphatase measurementOrdered By: Malinda Ho on 03-11-2025 ALP [Catalytic activity/Vol] 75 U/L 40-129 [facility] Serum or plasma calcium isidro urement (mass/volume)Ordered By: Malinda Ho on 03-11-2025 Calcium [Mass/Vol] 9.2 mg/dL 7.6-11.0 [facility] Serum or plasma urea nitroge n measurement (mass/volume)Ordered By: Malinda Ho on 03-11-2025 Urea nitrogen [Mass/Vol] 29 mg/dL High 4-19 [facility] Sodium levelOrdered By: Dolores Ho on 03-11-2025 Sodium [Moles/Vol] 138 mmol/L 133-145 [facility] Total proteinOrdered By: Deepti Ho on 03-11-2025 Protein [Mass/Vol] 6.4 g/dL 5.9-8.4 [facility] Troponin T.cardiac [Mass/vol ume] in Serum or Plasma by High sensitivity methodOrdered By: Malinda Ho on 03-11-2025 Troponin T.cardiac High sensitivity method [Mass/Vol] 50 ng/L High <22 [facility] Venous blood ammonia measure mentOrdered By: Malinda Ho on 03-11-2025 Ammonia (P) [Moles/Vol] 17.6 umol/L 16-60 [facility] White blood cell (WBC) count Ordered By: Malinda Ho on 03-11-2025 WBC (Bld) [#/Vol] 5.1 10*3/uL 4.4-11.0 [facility] .Auto Diffon 01-10-2025 Basophil, Absolute 0.0 10 3/mcL Normal 0.0-0.3 [facility] MAIN Comment on above: Performed By: #### C MP, CBC, GFR, ADIFF, ANEU, CK, TROPHS, DRUGS, MDW #### [address] [address] Basophils/100 WBC (Bld) 0.9 % Normal 0.0-2.5 [facility] MAIN Comment on above: Performed By: #### C MP, CBC, GFR, ADIFF, ANEU, CK, TROPHS, DRUGS, W #### [address] [address] Eosinophil, Absolute 0.2 10 3/mcL Normal 0.0-0.7 [facility] MAIN Comment on above: Performed By: #### C MP, CBC, GFR, ADIFF, ANEU, CK, TROPHS, DRUGS, CECILIO #### [address] [address] Eosinophils/100 WBC (Bld) 5.5 % Normal 0.0-6.0 [facility] MAIN Comment on above: Performed By: #### C MP, CBC, GFR, ADIFF, ANEU, CK, TROPHS, DRUGS, CECILIO #### [address] [address] Lymphocyte, Absolute 1.1 10 3/mcL Normal 0.9-4.3 [facility] MAIN Comment on above: Performed By: #### C MP, CBC, GFR, ADIFF, ANEU, CK, TROPHS, DRUGS, CECILIO #### [address] [address] Lymphocytes/100 WBC (Bld) 26.3 % Normal 20.0-40.0 [facility] MAIN Comment on above: Performed By: #### C MP, CBC, GFR, ADIFF, ANEU, CK, TROPHS, DRUGS, CECILIO #### [address] [address] Monocyte, Absolute 0.7 10 3/mcL Normal 0.1-1.4 [facility] MAIN Comment on above: Performed By: #### C MP, CBC, GFR, ADIFF, ANEU, CK, TROPHS, DRUGS, MDW #### [address] [address] Monocytes/100 WBC (Bld) 16.8 % High 2.0-13.0 [facility] MAIN Comment on above: Performed By: #### C MP, CBC, GFR, ADIFF, ANEU, CK, TROPHS, DRUGS, MDW #### [address] [address] Neutrophils/100 WBC (Bld) 50.5 % Normal 50.0-75.0 [facility] MAIN Comment on above: Performed By: #### C MP, CBC, GFR, ADIFF, ANEU, CK, TROPHS, DRUGS, CECILIO #### [address] [address] .GFRon 01-10-2025 Estimated Glomerular Filtration Rate 72 ml/min/1.73sqm Normal [facility] MAIN Comment on above: Result Comment: [...] GFR, ADIFF, ANEU, CK, TROPHS, DRUGS, MDW ####[address] [address] .MDWon 01-10-2025 Monocyte Distribution Width 15.70 Normal 0.00-20.00 [facility] MAIN Comment on above: Result Comment: For ED adult patients suspected of sepsis, MDW<=20.0 does not rule out sepsis or risk of sepsis Performed By: #### C MP, CBC, GFR, ADIFF, ANEU, CK, TROPHS, DRUGS, MDW #### [address] [address] .NEUABSon 01-10-2025 Neutrophil, Absolute 2.2 10 3/mcL Low 2.3-8.1 [facility] MAIN Comment on above: Performed By: #### C MP, CBC, GFR, ADIFF, ANEU, CK, TROPHS, DRUGS, MDW #### [place] [id number] CBCon 01-10-2025 Erythrocyte distribution width (RBC) [Ratio] 16.5 % High 11.5-15.5 [facility] MAIN Comment on above: Performed By: #### C MP, CBC, GFR, ADIFF, ANEU, CK, TROPHS, DRUGS, MDW #### [place] [address] Hematocrit (Bld) [Volume fraction] 35.5 % Low 40.0-52.0 [facility] MAIN Comment on above: Performed By: #### C MP, CBC, GFR, ADIFF, ANEU, CK, TROPHS, DRUGS, MDW #### [place] [id number] Hgb 11.5 G/dL Low 13.0-17.5 [facility] MAIN Comment on above: Performed By: #### C MP, CBC, GFR, ADIFF, ANEU, CK, TROPHS, DRUGS, MDW #### [place] [id number] MCH (RBC) [Entitic mass] 26.2 pg Low 27.0-33.0 [facility] MAIN Comment on above: Performed By: #### C MP, CBC, GFR, ADIFF, ANEU, CK, TROPHS, DRUGS, MDW #### [place] [id number] MCHC 32.4 G/dL Normal 32.0-36.0 [facility] MAIN Comment on above: Performed By: #### C MP, CBC, GFR, ADIFF, ANEU, CK, TROPHS, DRUGS, MDW #### [place] [id number] MCV (RBC) [Entitic vol] 80.9 fL Low 81.0-100.0 [facility] MAIN Comment on above: Performed By: #### C MP, CBC, GFR, ADIFF, ANEU, CK, TROPHS, DRUGS, CECILIO #### [place] [address] Platelet 204 10 3/mcL Normal 150-450 [facility] MAIN Comment on above: Performed By: #### C MP, CBC, GFR, ADIFF, ANEU, CK, TROPHS, DRUGSCECILIO #### [place] [address] Platelet mean volume (Bld) [Entitic vol] 9.1 fL Normal 6.4-10.5 [facility] MAIN Comment on above: Performed By: #### C MP, CBC, GFR, ADIFF, ANEU, CK, TROPHS, DRUGSCECILIO #### [place] [address] RBC 4.39 10 6/mcL Low 4.50-6.00 [facility] MA[facility] Comment on above: Performed By: #### C MP, CBC, GFR, ADIFF, ANEU, CK, TROPHS, DRUGSCECILIO #### [place] [address] WBC 4.3 10 3/mcL Low 4.5-10.8 [facility] MA[facility] Comment on above: Performed By: #### C MP, CBC, GFR, ADIFF, ANEU, CK, TROPHS, DRUGSCECILIO #### [place] [address] CKon 01-10-2025 CK [Catalytic activity/Vol] 25 U/L Normal 7-185 [facility] MAIN Comment on above: Performed By: #### C MP, CBC, GFR, ADIFF, ANEU, CK, TROPHS, DRUGSCECILIO ####[place] [address] CMPon 01-10-2025 Albumin Level 3.2 G/dL Normal 3.2-4.8 [facility] MAIN Comment on above: Performed By: #### C MP, CBC, GFR, ADIFF, ANEU, CK, TROPHS, DRUGSCECILIO ####[place] [address] Albumin/Globulin [Mass ratio] 0.9 {ratio} Normal 0.9-1.6 [facility] MAIN Comment on above: Performed By: #### C MP, CBC, GFR, ADIFF, ANEU, CK, TROPHS, DRUGSCECILIO ####[place] [address] ALP [Catalytic activity/Vol] 69 U/L Normal 38-126 [facility] MA[facility] Comment on above: Performed By: #### C MP, CBC, GFR, ADIFF, ANEU, CK, TROPHS, DRUGSCECILIO ####[place] [address] ALT/SGPT <7 Low 12-55 [facility] MA[facility] Comment on above: Performed By: #### C MP, CBC, GFR, ADIFF, ANEU, CK, TROPHS, DRUGSCECILIO ####[place] [address] AST [Catalytic activity/Vol] 11 U/L Normal 8-34 [facility] MA[facility] Comment on above: Performed By: #### C MP, CBC, GFR, ADIFF, ANEU, CK, TROPHS, DRUGSCECILIO ####[place] [address] Bili Total 0.20 mg/dL Normal 0.20-1.20 [facility] MAIN Comment on above: Result Comment: Use of this assay is not recommended for patients undergoing treatment with eltrombopag due to the potential for falsely elevated results. Performed By: #### C MP, CBC, GFR, ADIFF, ANEU, CK, TROPHS, DRUGS, CECILIO ####[place] [address] BUN/Creatinine Ratio 16.2 ratio Normal 10.0-22.0 [facility] MA[facility] Comment on above: Performed By: #### C MP, CBC, GFR, ADIFF, ANEU, CK, TROPHS, DRUGS, CECILIO ####[place] [address] Calcium [Mass/Vol] 9.0 mg/dL Normal 8.7-10.4 [facility] MAIN Comment on above: Performed By: #### C MP, CBC, GFR, ADIFF, ANEU, CK, TROPHS, DRUGSCECILIO ####[address] [address] Chloride [Moles/Vol] 106 mmol/L Normal 98-110 [facility] MA[facility] Comment on above: Performed By: #### C MP, CBC, GFR, ADIFF, ANEU, CK, TROPHS, DRUGSCECILIO ####[address] [address] CO2 [Moles/Vol] 26 mmol/L Normal 22-32 [facility] MA[facility] Comment on above: Performed By: #### C MP, CBC, GFR, ADIFF, ANEU, CK, TROPHS, DRUGSCECILIO ####[address] [address] Creatinine [Mass/Vol] 1.11 mg/dL Normal 0.60-1.40 [facility] MAIN Comment on above: Result Comment: Test ing performed on [employer] analyzer using enzymatic creatinine methodology. Performed By: #### C MP, CBC, GFR, ADIFF, ANEU, CK, TROPHS, DRUGSCECILIO ####[place] [address] Electrolyte Balance 8.0 mEq/L Normal 4.0-15.0 [facility] MAIN Comment on above: Performed By: #### C MP, CBC, GFR, ADIFF, ANEU, CK, TROPHS, DRUGSCECILIO ####[place] [id number] Globulin 3.4 G/dL Normal 2.5-4.2 [facility] MAIN Comment on above: Performed By: #### C MP, CBC, GFR, ADIFF, ANEU, CK, TROPHS, DRUGSCECILIO ####[place] [id number] Glucose [Mass/Vol] 154 mg/dL High 82-115 [facility] MAIN Comment on above: Performed By: #### C MP, CBC, GFR, ADIFF, ANEU, CK, TROPHS, DRUGSCECILIO ####[address] [address] Potassium [Moles/Vol] 4.2 mmol/L Normal 3.5-5.0 [facility] MAIN Comment on above: Performed By: #### C MP, CBC, GFR, ADIFF, ANEU, CK, TROPHS, DRUGS, CECILIO ####[address] [address] Sodium [Moles/Vol] 140 mmol/L Normal 136-145 [facility] MAIN Comment on above: Performed By: #### C MP, CBC, GFR, ADIFF, ANEU, CK, TROPHS, DRUGS, CECILIO ####[place] [address] Total Protein 6.6 G/dL Normal 5.7-8.2 [facility] MAIN Comment on above: Performed By: #### C MP, CBC, GFR, ADIFF, ANEU, CK, TROPHS, DRUGS, CECILIO ####[place] [address] Urea nitrogen [Mass/Vol] 18.0 mg/dL Normal 8.0-22.0 [facility] MAIN Comment on above: Performed By: #### C MP, CBC, GFR, ADIFF, ANEU, CK, TROPHS, DRUGS, CECILIO ####[place] [address] CVFLURVon 01-10-2025 FLU A PCR Negative Normal Negative [facility] MAIN Comment on above: Result Comment: Note s [id number] Performed By: #### C VFLURV #### [place] [address] FLU B PCR Negative Normal Negative [facility] MAIN Comment on above: Result Comment: Note s [id number] Performed By: #### C VFLURV #### [place] [address] RSV PCR Negative Normal Negative [facility] MAIN Comment on above: Result Comment: [place] s [id number] Performed By: #### C VFLURV #### [place] [address] SARS-CoV-2 (COVID-19) RNA SUMAN+probe Ql (Unsp spec) Negative Normal Negative [facility] MAIN Comment on above: Result Comment: [place] s [id number] Results from the Xpert Xpress SARS-CoV-2/Flu/RSV or [...] Approved. Performed By: #### C VFLURV #### [place] [address] DRUGSon 01-10-2025 Acetaminophen [Mass/Vol] 8.4 ug/mL Low 10.0-20.0 [facility] MAIN Comment on above: Performed By: #### C MP, CBC, GFR, ADIFF, ANEU, CK, TROPHS, DRUGS, MDW ####[place] [address] Ethanol Level <10.0 [facility] MAIN Comment on above: Performed By: #### C MP, CBC, GFR, ADIFF, ANEU, CK, TROPHS, DRUGS, MDW ####[place] [id number] Salicylate Lvl (ds) <3.0 Low 10.0-25.0 [facility] MAIN Comment on above: Performed By: #### C MP, CBC, GFR, ADIFF, ANEU, CK, TROPHS, DRUGS, MDW ####[place] [address] Serum Drugs screened: See Below [facility] MAIN Comment on above: Result Comment: This drug screen is a presumptive screening only. No confirmation will be performed unless requested. Drugs included in the serum drug screen are: Threshold Ethanol 10.0 mg/dL Salicylate 2.0 mg/dl Acetaminophen 2.0 mcg/mL Testing has been performed FOR MEDICAL PURPOSES ONLY. Performed By: #### C MP, CBC, GFR, ADIFF, ANEU, CK, TROPHS, DRUGS, MDW ####[place] [address] DRUGUon 01-10-2025 Amphetamine (u) Negative Normal Negative [facility] MAIN Comment on above: Performed By: #### U A, DRUGU, UAMIC #### [place] [address] Barbiturate (u) Negative Normal Negative [facility] MAIN Comment on above: Performed By: #### U A DRUGU, UAMIC #### [place] [address] Benzodiazepine (u) Negative Normal Negative [facility] MAIN Comment on above: Performed By: #### U A DRUGU, UAMIC #### [place] [address] Cannabinoid (u) Negative Normal [facility] MAIN Comment on above: Performed By: #### U A, DRUGU, UAMIC #### [place] [address] Cocaine Ql (U) Negative [facility] MAIN Comment on above: Performed By: #### U A, DRUGU, UAMIC #### [place] [address] Fentanyl (u) Negative Normal [facility] MAIN Comment on above: Result Comment: Test ing has been performed FOR MEDICAL PURPOSES ONLY. Performed By: #### U A, DRUGU, UAMIC #### [place] [address] Methadone Ql (U) Negative Normal Negative [facility] MAIN Comment on above: Performed By: #### U A DRUGU, UAMIC #### [place] [address] Opiate (u) Negative Normal [facility] MAIN Comment on above: Performed By: #### U A, DRUGU, UAMIC #### [address] [address] Oxycodone (u) Negative Normal Negative [facility] MAIN Comment on above: Result Comment: Test ing has been performed FOR MEDICAL PURPOSES ONLY. Performed By: #### AARON Yoon UAMIC #### [address] [address] PCP (u) Negative Normal Negative [facility] MAIN Comment on above: Performed By: #### AARON Yoon UAMIC #### [address] [address] Propoxyphene (u) Negative Normal Negative [facility] MAIN Comment on above: Performed By: #### AARON Yoon UAMIC #### [address] [address] U pH Drug Scrn 5.5 Normal 5.0-8.0 [facility] MAIN Comment on above: Performed By: #### AARON Yoon UAMIC #### [place] [address] Urine Drugs screened: See Below Normal [facility] MAIN Comment on above: Result Comment: [...] By: #### U AARON Aquino UAMIC #### [place] [address] LABORATORYOrdered By: Altaf choe on 01-10-2025 Acetaminophen [...] (01/10/25 10:47 PM) Invalid Interpretation Code Negative ADM SS Opiates Screen Ql (U) Negative *NA* (01/10/25 10:47 PM) Invalid Interpretation Code Negative ADM SS oxyCODONE Ql (U) Negative 3 *NA* (01/10/25 10:47 PM) Invalid Interpretation Code Negative ADM SS Comment on above: Interpretive Data: T esting has been performed FOR MEDICAL PURPOSES ONLY. pH (U) 5.5 [pH] Normal 5.0 - 8.0 Chemistry S Phencyclidine Ql (U) Negative *NA* (01/10/25 10:47 PM) Invalid Interpretation Code Negative ADM SS Propoxyphene Screen Ql (U) Negative *NA* (01/10/25 10:47 PM) Invalid Interpretation Code Negative ADM SS Salicylates [Mass/Vol] mg/dL Low 10.0 - 25.0 mg/dL ADM SS Serum Drugs screened: See Below 7 (01/10/25 10:47 PM) Normal Chemistry S Comment on above: Interpretive Data: T his drug screen is a presumptive screening only. No confirmation will be performed unless requested. Drugs included in the serum drug screen are: Threshold Ethanol 10.0 mg/dL Salicylate 2.0 mg/dl Acetaminophen 2.0 mcg/mL Testing has been performed FOR MEDICAL PURPOSES ONLY. Urine Drugs screened: See Below 8 (01/10/25 10:47 PM) Normal Chemistry S Comment on above: Interpretive Data: [...] U/L 1 Low 12 - 55 U/L AH ADM SS AST [Catalytic activity/Vol] 11 U/L Normal 8 - 34 U/L AH ADM SS Basophils (Bld) [#/Vol] 0.0 103/mcL Normal 0.0 - 0.3 10^3/mcL AH Workflow SS Basophils/100 WBC (Bld) 0.9 % Normal 0.0 - 2.5 % AH Workflow SS Bilirubin [Mass/Vol] 0.20 mg/dL Normal 0.20 - 1.20 mg/dL AH ADM SS Comment on above: Interpretive Data: U se of this assay is not recommended for patients undergoing treatment with eltrombopag due to the potential for falsely elevated results. Calcium [Mass/Vol] 9.0 mg/dL Normal 8.7 - 10. 4 mg/dL AH ADM SS Chloride [Moles/Vol] 106 mmol/L Normal 98 - 11 0 mEq/L AH ADM SS CK [Catalytic activity/Vol] 25 U/L Normal 7 - 185 U/L AH ADM SS CO2 [Moles/Vol] 26 mmol/L Normal 22 - 32 mEq/L AH ADM SS Creatinine [Mass/Vol] 1.11 mg/dL Normal 0.60 - 1.40 mg/dL ADM SS Comment on above: Interpretive Data: T esting performed on [employer] CH analyzer using enzymatic creatinine methodology. Electrolyte Balance [...] 3.4 G/dL Normal 2.5 - 4.2 G/dL ADM SS Glucose [Mass/Vol] 154 mg/dL High 82 - 115 mg/dL ADM SS Hematocrit (Bld) [Volume fraction] 35.5 % Low 40.0 - 52.0 % Workflow SS Hemoglobin (Bld) [Mass/Vol] 11.5 G/dL Low 13.0 - 17.5 G/dL Workflow SS Lymphocytes (Bld) [#/Vol] 1.1 103/mcL Normal 0.9 - 4.3 10^3/mcL Workflow SS Lymphocytes/100 WBC (Bld) 26.3 % Normal 20.0 - 40.0 % Workflow SS MCH (RBC) [Entitic mass] 26.2 pg Low 27.0 - 33.0 pg Workflow SS MCHC 32.4 G/dL Normal 32.0 [...] 4.2 mmol/L Normal 3.5 - 5.0 mEq/L ADM SS Protein [Mass/Vol] 6.6 G/dL Normal 5.7 - 8.2 G/dL ADM SS RBC (Bld) [#/Vol] 4.39 106/mcL Low 4.50 - 6.0 0 10^6/mcL AH Workflow SS Sodium [Moles/Vol] 140 mmol/L Normal 136 - 145 mEq/L ADM SS Troponin I.cardiac DL <= 0.01 ng/mL [Mass/Vol] 17 ng/L Normal 0 - 54 ng/L ADM SS Comment on above: Interpretive Data: High Sensitive Troponin I Reference Ranges: Female: 0-34 ng/L Male: 0-54 ng/L Testing performed on [employer] analyzer using direct chemiluminescent technology. Urea nitrogen [Mass/Vol] 18.0 mg/dL Normal 8.0 - 22.0 mg/dL ADM SS Urea nitrogen/Creatinine [Mass ratio] 16.2 ratio Normal 10.0 - 22.0 ratio ADM SS WBC (Bld) [#/Vol] 4.3 103/mcL [...] Neg-Trace AH Auto Urine SS Color (U) [place] *ABN* (01/10/25 10:47 PM) Invalid Interpretation Code [...] Comment on above: Result Comment: [place] [id number] FLUBV RNA SUMAN+probe Ql (Resp) Negative 13 (01/10/25 10:47 PM) Normal Negative AH Auto Viro/Sero SS Comment on above: Result Comment: [place] [id number] RSV PCR Negative 14 (01/10/25 10:47 PM) Normal Negative AH Auto Viro/Sero SS Comment on above: Result Comment: [place] s [id number] SARS-CoV-2 (COVID-19) RNA SUMAN+probe Ql (Resp) Negative 10, 11 (01/10/25 10:47 PM) Normal Negative AH Auto Viro/Sero SS Comment on above: Result Comment: [place] s [id number] Interpretive Data: R esults from the Xpert [...] 01-10 Culture Urine Specimen received in lab. [facility] Work Phone: [facility] 01-10-2025 High Sensitivity Troponin I 17 ng/L Normal 0-54 [facility] MAIN Comment on above: Result Comment: High Sensitive Troponin I Reference Ranges: Female: 0-34 ng/L Male: 0-54 ng/L Testing performed on [employer] analyzer using direct chemiluminescent technology. Performed By: #### C MP, CBC, GFR, ADIFF, ANEU, CK, TROPHS, DRUGS, MDW #### [place] [address] UAon 01-10-2025 Color (U) [place] Abnormal [facility] MAIN Comment on above: Performed By: #### U AIDA AquinoU, UAMIC #### [place] [address] Glucose (U) [Mass/Vol] Negative Normal Negative [facility] MAIN Comment on above: Performed By: #### U A DRUGU, UAMIC #### [place] [address] Ketones Ql (U) Negative Normal Neg-Trace [facility] MAIN Comment on above: Performed By: #### U AAIDAU, UAMIC #### [place] [address] UA Appear Turbid Abnormal Clear [facility] MAIN Comment on above: Performed By: #### U A DRUGU, UAMIC #### [place] [address] UA Blood Large Abnormal Neg-Trace [facility] Comment on above: Performed By: #### U AIDA AquinoU, UAMIC #### [place] [address] UA Leuk Est Large Abnormal Negative [facility] Comment on above: Performed By: #### U AAARON, UAMIC #### [place] [address] UA Nitrite Negative Normal Negative [facility] Comment on above: Performed By: #### U A DRUGU, UAMIC #### [place] [address] UA pH 5.5 Normal 5.0 - 8.0 [facility] Comment on above: Performed By: #### U A DRUGU, UAMIC #### [place] [address] UA Protein 100 mg/dL Abnormal Negative [facility] Comment on above: Performed By: #### U A DRUGU, UAMIC #### [place] [address] UA Spec Grav 1.020 Normal 1.006-1.029 [facility] MA[facility] Comment on above: Performed By: #### U A DRUGU, UAMIC #### [address] [address] UA Specimen Type Clean Catch Normal [facility] Comment on above: Performed By: #### U AARON Aquino, UAMIC #### [place] [id number] UA Urobilinogen 0.2 E.U./dL Normal 0.2-1.0 [facility] MA[facility] Comment on above: Performed By: #### AARON Yoon, UAMIC #### [place] [address] Urobilinogen (U) [Mass/Vol] Negative Normal Neg-Trace [facility] MA[facility] Comment on above: Performed By: #### AARON Yoon, UAMIC #### [place] [address] UAMICon 01-10-2025 UA Bacteria 1+ /hpf Abnormal Negative [facility] Comment on above: Performed By: #### AARON Yoon, UAMIC #### [place] [address] UA Mucous 1+ /hpf Normal [facility] Comment on above: Performed By: #### AARON Yoon, UAMIC #### [place] [address] UA RBC LOADED Abnormal 0-2 [facility] Comment on above: Performed By: #### AARON Yoon, UAMIC #### [place] [address] UA Squam Epithelial Negative Normal 0-20 [facility] Comment on above: Performed By: #### U AIDA AquinoU, UAMIC #### [place] [address] UA WBC 50-100 Abnormal 0-5 [facility] Comment on above: Performed By: #### U AIDA AquinoU, UAMIC #### [place] [address] Urine Cultureon 01-08-2025 URC Normal [facility] Comment on above: Performed By: #### M 100.2200 ####[facility] [id number] [place], [address] Absolute lymphocyte countOrd ered By: Allie Swann on 01-06-2025 Lymphocytes Auto (Unsp spec) [#/Vol] 0.86 10*3/uL 0.83-4.51 [facility] Absolute neutrophil countOrd ered By: Allie Swann on 01-06-2025 Neutrophils (Bld) [#/Vol] 2.4 10*3/uL 2.0-7.7 [facility] Anion gap in Serum or Plasma Ordered By: Allie Swann on 01-06-2025 Anion gap [Moles/Vol] 10 mmol/L 5-15 [facility] Automated lymphocyte count a s percentage of total leukocytesOrdered By: Allie Swann on 01-06-2025 Lymphocytes/100 WBC Auto (Unsp spec) 20.3 % 19-41 [facility] BUN/creatinine ratioOrdered By: Allie Swann on 01-06-2025 Urea nitrogen/Creatinine [Mass ratio] 21.1 mg/mg High 10-20 [facility] Basic Metabolic Profile (BMP )on 01-06-2025 BUN/CRE 21.1 RATIO High 10-20 [facility] Comment on above: Order Comment: ZEB GUEVARA REFUSED MORNING LABS. QUIN TORIBIO NOTIFIED-DSCOTT Performed By: #### L 100.0100, L500.2500, L501.9520 ####[facility] [id number] [place], [address] Calcium [Mass/Vol] 8.9 mg/dL Normal 7.6-11.0 [facility] Comment on above: Order Comment: ZEB GUEVARA REFUSED MORNING LABS. QUIN TORIBIO NOTIFIED-DSCOTT Performed By: #### L 100.0100, L500.2500, L501.9520 ####[facility] [address] [place], [address] Chloride [Moles/Vol] 107 mmol/L Normal 98-108 [facility] Comment on above: Order Comment: ZEB GUEVARA REFUSED MORNING LABS. QUIN TORIBIO NOTIFIED-DSCOTT Performed By: #### L 100.0100, L500.2500, L501.9520 ####[facility] [address] [place], [address] CO2 [Moles/Vol] 23.1 mmol/L Normal 21.0-32.0 [facility] Comment on above: Order Comment: ZEB PAOLA REFUSED MORNING LABS. QUIN TORIBIO NOTIFIED-DSCOTT Performed By: #### L 100.0100, L500.2500, L501.9520 ####[facility] [address] [place], [address] Creatinine [Mass/Vol] 1.07 mg/dL Normal 0.70-1.20 [facility] Comment on above: Order Comment: ZEB PAOLA REFUSED MORNING LABS. QUIN TORIBIO NOTIFIED-DSCOTT Performed By: #### L 100.0100, L500.2500, L501.9520 ####[facility] [address] [place], [address] ECRCL 87.17 ml/min Normal 50-250 [facility] Comment on above: Order Comment: ZEB PAOLA REFUSED MORNING LABS. QUIN TORIBIO NOTIFIED-DSCOTT Performed By: #### L 100.0100, L500.2500, L501.9520 ####[facility] [address] [place], [address] GAP 10 Normal 5-15 [facility] Comment on above: Order Comment: ZEB NT REFUSED MORNING LABS. QUIN TORIBIO NOTIFIED-DSCOTT Performed By: #### L 100.0100, L500.2500, L501.9520 ####[facility] [address] [place], [address] GFR/1.73 sq M.predicted among non-blacks MDRD (S/P/Bld) [Vol rate/Area] 75 mL/min/{1.73_m2} Normal >60 [facility] Comment on above: Order Comment: BAILEYAyde PAOLA REFUSED MORNING LABS. QUIN TORIBIO NOTIFIED-DSCOTT Result Comment: mL/m in/1.73m2 CKD-EPI Creatinine Equation (2020) Performed By: #### L 100.0100, L500.2500, L501.9520 ####[facility] [address] [place], [address] Glucose [Mass/Vol] 101 mg/dL High 70-99 [facility] Comment on above: Order Comment: ZEB GUEVARA REFUSED MORNING LABS. QUIN TORIBIO NOTIFIED-DSCOTT Performed By: #### L 100.0100, L500.2500, L501.9520 ####[facility] [address] [place], [address] Potassium [Moles/Vol] 4.5 mmol/L Normal 3.3-5.1 [facility] Comment on above: Order Comment: ZEB GUEVARA REFUSED MORNING LABS. QUIN TORIBIO NOTIFIED-DSCOTT Performed By: #### L 100.0100, L500.2500, L501.9520 ####[facility] [address] [place], [address] Sodium [Moles/Vol] 139 mmol/L Normal 133-145 [facility] Comment on above: Order Comment: PATIAyde GUEVARA REFUSED MORNING LABS. QUIN TORIBIO NOTIFIED-DSCOTT Performed By: #### L 100.0100, L500.2500, L501.9520 ####[facility] [address] [place], [address] Urea nitrogen [Mass/Vol] 23 mg/dL High 4-19 [facility] Comment on above: Order Comment: ZEB NT REFUSED MORNING LABS. QUIN TORIBIO NOTIFIED-DSCOTT Performed By: #### L 100.0100, L500.2500, L501.9520 ####[facility] [address] [place], [address] Basophil percentageOrdered B y: Allie Swann on 01-06-2025 Basophils/100 WBC (Bld) 0.9 % 0-1 [facility] Bedside Glucoseon 01-06-2025 FINGERSTICK GLU 123 mg/dL High 74-106 [facility] Comment on above: Result Comment: PETER GEMENT OF PATIENT CARE PER NURSING PROTOCOL Performed By: #### L 501.080 ####[facility] [address] [place], [address] FINGERSTICK GLU 119 mg/dL High 74-106 [facility] Comment on above: Result Comment: PETER GEMENT OF PATIENT CARE PER NURSING PROTOCOL Performed By: #### L 501.080 ####[facility] [address] [place], [address] CBC W/Diff, Automatedon - Absolute Lymph 0.86 X10 3/uL Normal 0.83-4.51 [facility] Comment on above: Performed By: #### L 100.0100, L500.2500, L501.9520 ####[facility] [address] [place], [address] Absolute Neut 2.4 X10 3/uL Normal 2.0-7.7 [facility] Comment on above: Performed By: #### L 100.0100, L500.2500, L501.9520 ####[facility] [address] [place], [address] Basophils/100 WBC (Bld) 0.9 % Normal 0-1 [facility] Comment on above: Performed By: #### L 100.0100, L500.2500, L501.9520 ####[facility] [address] [place], [address] Eosinophils/100 WBC (Bld) 5.2 % High 0-5 [facility] Comment on above: Performed By: #### L 100.0100, L500.2500, L501.9520 ####[facility] [address] [place], [address] Erythrocyte distribution width (RBC) [Ratio] 15.2 % High 11.6-14.6 [facility] Comment on above: Performed By: #### L 100.0100, L500.2500, L501.9520 ####[facility] [address] [place], [address] Hematocrit (Bld) [Volume fraction] 36.3 % Low 40-54 [facility] Comment on above: Performed By: #### L 100.0100, L500.2500, L501.9520 ####[facility] [address] [place], [address] Hemoglobin (Bld) [Mass/Vol] 11.4 g/dL Low 13.0-16.5 [facility] Comment on above: Performed By: #### L 100.0100, L500.2500, L501.9520 ####[facility] [address] [place], [address] IG% 0.500 Normal 0.0-0.9 [facility] Comment on above: Result Comment: IG% - Immature Granulocytes (promyelocytes, myelocytes andmetamyelocytes) > 1% indicates that a LEFT SHIFT is Present. Performed By: #### L 100.0100, L500.2500, L501.9520 ####[facility] [address] [place], [address] Lymphocytes/100 WBC (Bld) 20.3 % Normal 19-41 [facility] Comment on above: Performed By: #### L 100.0100, L500.2500, L501.9520 ####[facility] [address] [place], [address] MCH (RBC) [Entitic mass] 26.6 pg Low 27.0-32.0 [facility] Comment on above: Performed By: #### L 100.0100, L500.2500, L501.9520 ####[facility] [address] [place], [address] MCHC (RBC) [Mass/Vol] 31.4 g/dL Low 32-36 [facility] Comment on above: Performed By: #### L 100.0100, L500.2500, L501.9520 ####[facility] [address] [place], [address] MCV (RBC) [Entitic vol] 84.8 fL Normal 80-94 [facility] Comment on above: Performed By: #### L 100.0100, L500.2500, L501.9520 ####[facility] [address] [place], [address] Monocytes/100 WBC (Bld) 16.0 % High 0-10 [facility] Comment on above: Performed By: #### L 100.0100, L500.2500, L501.9520 ####[facility] [address] [place], [address] Neutrophils/100 WBC (Bld) 57.1 % Normal 47-70 [facility] Comment on above: Performed By: #### L 100.0100, L500.2500, L501.9520 ####[facility] [address] [place], [address] Nucleated RBC (Bld) [#/Vol] 0 10*3/uL Normal 0-5 [facility] Comment on above: Performed By: #### L 100.0100, L500.2500, L501.9520 ####[facility] [address] [place], [address] Platelet mean volume (Bld) [Entitic vol] 11.5 fL Normal 6.2-12.0 [facility] Comment on above: Performed By: #### L 100.0100, L500.2500, L501.9520 ####[facility] [address] [place], [address] Platelets (Bld) [#/Vol] 157 10*3/uL Normal 150-450 [facility] Comment on above: Performed By: #### L 100.0100, L500.2500, L501.9520 ####[facility] [address] [place], [address] RBC (Bld) [#/Vol] 4.28 10*6/uL Low 4.6-6.2 [facility] Comment on above: Performed By: #### L 100.0100, L500.2500, L501.9520 ####[facility] [address] [place], [address] RDW SD 46.9 fl High 35.1-43.9 [facility] Comment on above: Performed By: #### L 100.0100, L500.2500, L501.9520 ####[facility] [address] [place], [address] WBC (Bld) [#/Vol] 4.2 10*3/uL Low 4.4-11.0 [facility] Comment on above: Performed By: #### L 100.0100, L500.2500, L501.9520 ####[facility] [address] [place], [address] Carbon dioxide, total [Moles /volume] in Central venous bloodOrdered By: Allie Swann on 01-06-2025 CO2 [Moles/Vol] 23.1 mmol/L 21.0-32.0 [facility] Chloride assayOrdered By: Chante Swann on 01-06-2025 Chloride [Moles/Vol] 107 mmol/L 98-108 [facility] Eosinophil percentageOrdered By: Allie Swann on 01-06-2025 Eosinophils/100 WBC (Bld) 5.2 % High 0-5 [facility] Erythrocyte distribution wid th ratioOrdered By: Allie Swann on 01-06-2025 Erythrocyte distribution width (RBC) [Ratio] 15.2 % High 11.6-14.6 [facility] Erythrocyte distribution wid th standard deviationOrdered By: Allie Swann on 01-06-2025 Erythrocyte distribution width (RBC) [Ratio] 46.9 fl High 35.1-43.9 [facility] Glomerular filtration rate ( GFR) estimation/1.73 sq m using serum, plasma, or whole bOrdered By: Allie Swann on 01-06-2025 GFR/1.73 sq M.predicted among non-blacks MDRD (S/P/Bld) [Vol rate/Area] 75 mL/min/{1.73_m2} >60 [facility] Comment on above: mL/min/1.73m2 CKD-EP I Creatinine Equation (2020) [facility] deOrdered By: Louie Howard on 01-06-2025 Glucose [Mass/Vol] 123 mg/dL High 74-106 [facility] Comment on above: MANAGEMENT OF PATIEN T CARE PER NURSING PROTOCOL Hematocrit Auto (Bld) [Volum e fraction]Ordered By: Allie Swann on 01-06-2025 Hematocrit (Bld) [Volume fraction] 36.3 % Low 40-54 [facility] Hemoglobin measurementOrdere d By: Allie Swann on 01-06-2025 Hemoglobin (Bld) [Mass/Vol] 11.4 g/dL Low 13.0-16.5 [facility] Immature granulocytes/100 WB C Auto (Bld)Ordered By: Allie Swann on 01-06-2025 Immature granulocytes/100 WBC (Bld) 0.500 % 0.0-0.9 [facility] Comment on above: IG% - Immature Granu locytes (promyelocytes, myelocytes and metamyelocytes) > 1% indicates that a LEFT SHIFT is Present. MCV (mean corpuscular volume ) determinationOrdered By: Allie Swann on 01-06-2025 MCV (RBC) [Entitic vol] 84.8 fL 80-94 [facility] Mean corpuscular hemoglobin (MCH) determinationOrdered By: Allie Swann on 01-06-2025 MCH (RBC) [Entitic mass] 26.6 pg Low 27.0-32.0 [facility] Mean corpuscular hemoglobin concentration (MCHC) determinationOrdered By: Allie Swann on 01-06-2025 MCHC (RBC) [Mass/Vol] 31.4 g/dL Low 32-36 [facility] Mean platelet volume determi nationOrdered By: Allie Swann on 01-06-2025 Platelet mean volume (Bld) [Entitic vol] 11.5 fL 6.2-12.0 [facility] Monocyte percentageOrdered B y: Allie Swann on 01-06-2025 Monocytes/100 WBC (Bld) 16.0 % High 0-10 [facility] Neutrophil percentageOrdered By: Allie Swann on 01-06-2025 Neutrophils/100 WBC (Bld) 57.1 % 47-70 [facility] Nucleated red blood cell per centageOrdered By: Allie Swann on 01-06-2025 Nucleated RBC/100 WBC (Bld) [Ratio] 0 % 0-5 [facility] Platelet countOrdered By: Chante Swann on 01-06-2025 Platelets (Bld) [#/Vol] 157 10*3/uL 150-450 [facility] Potassium measurement (mass/ volume)Ordered By: Allie Swann on 01-06-2025 Potassium (Unsp spec) [Mass/Vol] 4.5 mmol/L 3.3-5.1 [facility] RBC Auto (Bld) [#/Vol]Ordere d By: Allie Swann on 01-06-2025 RBC (Bld) [#/Vol] 4.28 10*6/uL Low 4.6-6.2 [facility] Serum creatinine measurement (mass/volume)Ordered By: Allie Swann on 01-06-2025 Creatinine [Mass/Vol] 1.07 mg/dL 0.70-1.20 [facility] Serum glucose measurement (m ass/volume)Ordered By: Allie Swann on 01-06-2025 Glucose [Mass/Vol] 101 mg/dL High 70-99 [facility] Serum or plasma calcium isidro urement (mass/volume)Ordered By: Allie Swann on 01-06-2025 Calcium [Mass/Vol] 8.9 mg/dL 7.6-11.0 [facility] Serum or plasma urea nitroge n measurement (mass/volume)Ordered By: Allie Swann on 01-06-2025 Urea nitrogen [Mass/Vol] 23 mg/dL High 4-19 [facility] Sodium levelOrdered By: Yaquelin Swann on 01-06-2025 Sodium [Moles/Vol] 139 mmol/L 133-145 [facility] TSH DL <= 0.005 mIU/L QnOrde red By: Allie Swann on 01-06-2025 TSH Qn 2.490 uIU/mL 0.300-4.200 [facility] Thyroid Stim Hormone (TSH)on 01-06-2025 TSH 2.490 uIU/mL Normal 0.300-4.200 [facility] Comment on above: Order Comment: PATIE NT REFUSED MORNING LABS. QUIN TORIBIO NOTIFIED-DSCOTT Performed By: #### L 100.0100, L500.2500, L501.9520 ####[facility] [address] [place], [place], [address] White blood cell (WBC) count Ordered By: Allie Swann on 01-06-2025 WBC (Bld) [#/Vol] 4.2 10*3/uL Low 4.4-11.0 [facility] Absolute lymphocyte countOrd ered By: Vivek Villatoro on 01-05-2025 Lymphocytes Auto (Unsp spec) [#/Vol] 1.13 10*3/uL 0.83-4.51 [facility] Anion gap in Serum or Plasma Ordered By: Vivek Villatoro on 01-05-2025 Anion gap [Moles/Vol] 12 mmol/L 5-15 [facility] Automated lymphocyte count a s percentage of total leukocytesOrdered By: Vivek Villatoro on 01-05-2025 Lymphocytes/100 WBC Auto (Unsp spec) 23.9 % 19-41 [facility] BUN/creatinine ratioOrdered By: Vivek Villatoro on 01-05-2025 Urea nitrogen/Creatinine [Mass ratio] 19.9 mg/mg 10- [facility] Basic Metabolic Profile (BMP )on 01-05-2025 BUN/CRE 19.9 RATIO Normal - [facility] Comment on above: Performed By: #### L 100.0100, L500.2500 ####[facility] [address] [place], [address] Calcium [Mass/Vol] 9.7 mg/dL Normal 7.6-11.0 [facility] Comment on above: Performed By: #### L 100.0100, L500.2500 ####[facility] [address] [place], [address] Chloride [Moles/Vol] 102 mmol/L Normal 98-108 [facility] Comment on above: Performed By: #### L 100.0100, L500.2500 ####[facility] [address] [place], [address] CO2 [Moles/Vol] 25.0 mmol/L Normal 21.0-32.0 [facility] Comment on above: Performed By: #### L 100.0100, L500.2500 ####[facility] [address] [place], [address] Creatinine [Mass/Vol] 1.50 mg/dL High 0.70-1.20 [facility] Comment on above: Performed By: #### L 100.0100, L500.2500 ####[facility] [address] [place], [address] GAP 12 Normal 5-15 [facility] Comment on above: Performed By: #### L 100.0100, L500.2500 ####[facility] [address] [place], [address] GFR/1.73 sq M.predicted among non-blacks MDRD (S/P/Bld) [Vol rate/Area] 50 mL/min/{1.73_m2} Low >60 [facility] Comment on above: Result Comment: mL/m in/1.73m2 CKD-EPI Creatinine Equation (2020) Performed By: #### L 100.0100, L500.2500 ####[facility] [address] [place], [address] Glucose [Mass/Vol] 104 mg/dL High 70-99 [facility] Comment on above: Performed By: #### L 100.0100, L500.2500 ####[facility] [address] [place], [address] Potassium [Moles/Vol] 4.4 mmol/L Normal 3.3-5.1 [facility] Comment on above: Performed By: #### L 100.0100, L500.2500 ####[facility] [address] [place], [address] Sodium [Moles/Vol] 139 mmol/L Normal 133-145 [facility] Comment on above: Performed By: #### L 100.0100, L500.2500 ####[facility] [address] [place], [address] Urea nitrogen [Mass/Vol] 30 mg/dL High 4-19 [facility] Comment on above: Performed By: #### L 100.0100, L500.2500 ####[facility] [address] [place], [address] Basophil percentageOrdered B y: Vivek Villatoro on 01-05-2025 Basophils/100 WBC (Bld) 0.6 % 0-1 [facility] Bedside Glucoseon 01-05-2025 FINGERSTICK GLU 146 mg/dL High 74-106 [facility] Comment on above: Result Comment: PETER GEMENT OF PATIENT CARE PER NURSING PROTOCOL Performed By: #### L 501.080 ####[facility] [address] [place], [address] FINGERSTICK GLU 95 mg/dL Normal 74-106 [facility] Comment on above: Result Comment: PETER GEMENT OF PATIENT CARE PER NURSING PROTOCOL Performed By: #### L 501.080 ####[facility] [address] [place], [address] Bilirubin Test strip Ql (U)O rdered By: Vivek Villatoro on 01-05-2025 Bilirubin Ql (U) Negative Negative [facility] Brain/Head without Contrasto n 01-05-2025 Brain/Head without Contrast Normal [facility] CBC W/Diff, Automatedon - Absolute Lymph 1.13 X10 3/uL Normal 0.83-4.51 [facility] Comment on above: Performed By: #### L 100.0100, L500.2500 ####[facility] [address] [place], [address] Absolute Neut 2.6 X10 3/uL Normal 2.0-7.7 [facility] Comment on above: Performed By: #### L 100.0100, L500.2500 ####[facility] [address] [place], [address] Basophils/100 WBC (Bld) 0.6 % Normal 0-1 [facility] Comment on above: Performed By: #### L 100.0100, L500.2500 ####[facility] [address] [place], [address] Eosinophils/100 WBC (Bld) 5.1 % High 0-5 [facility] Comment on above: Performed By: #### L 100.0100, L500.2500 ####[facility] [address] [place], [address] Erythrocyte distribution width (RBC) [Ratio] 15.4 % High 11.6-14.6 [facility] Comment on above: Performed By: #### L 100.0100, L500.2500 ####[facility] [address] [place], [address] Hematocrit (Bld) [Volume fraction] 39.3 % Low 40-54 [facility] Comment on above: Performed By: #### L 100.0100, L500.2500 ####[facility] [address] [place], [address] Hemoglobin (Bld) [Mass/Vol] 12.4 g/dL Low 13.0-16.5 [facility] Comment on above: Performed By: #### L 100.0100, L500.2500 ####[facility] [address] [place], [address] IG% 0.000 Normal 0.0-0.9 [facility] Comment on above: Result Comment: IG% - Immature Granulocytes (promyelocytes, myelocytes andmetamyelocytes) > 1% indicates that a LEFT SHIFT is Present. Performed By: #### L 100.0100, L500.2500 ####[facility] [address] [place], [address] Lymphocytes/100 WBC (Bld) 23.9 % Normal 19-41 [facility] Comment on above: Performed By: #### L 100.0100, L500.2500 ####[facility] [address] [place], [address] MCH (RBC) [Entitic mass] 26.7 pg Low 27.0-32.0 [facility] Comment on above: Performed By: #### L 100.0100, L500.2500 ####[facility] [address] [place], [address] MCHC (RBC) [Mass/Vol] 31.6 g/dL Low 32-36 [facility] Comment on above: Performed By: #### L 100.0100, L500.2500 ####[facility] [address] [place], [address] MCV (RBC) [Entitic vol] 84.5 fL Normal 80-94 [facility] Comment on above: Performed By: #### L 100.0100, L500.2500 ####[facility] [address] [place], [address] Monocytes/100 WBC (Bld) 16.1 % High 0-10 [facility] Comment on above: Performed By: #### L 100.0100, L500.2500 ####[facility] [address] [place], [address] Neutrophils/100 WBC (Bld) 54.3 % Normal 47-70 [facility] Comment on above: Performed By: #### L 100.0100, L500.2500 ####[facility] [address] [place], [address] Nucleated RBC (Bld) [#/Vol] 0 10*3/uL Normal 0-5 [facility] Comment on above: Performed By: #### L 100.0100, L500.2500 ####[facility] [address] [place], [address] Platelet mean volume (Bld) [Entitic vol] 11.7 fL Normal 6.2-12.0 [facility] Comment on above: Performed By: #### L 100.0100, L500.2500 ####[facility] [address] [place], [address] Platelets (Bld) [#/Vol] 177 10*3/uL Normal 150-450 [facility] Comment on above: Performed By: #### L 100.0100, L500.2500 ####[facility] [address] [place], [address] RBC (Bld) [#/Vol] 4.65 10*6/uL Normal 4.6-6.2 [facility] Comment on above: Performed By: #### L 100.0100, L500.2500 ####[facility] [address] [place], [address] RDW SD 47.2 fl High 35.1-43.9 [facility] Comment on above: Performed By: #### L 100.0100, L500.2500 ####[facility] [address] [place], [place], [address] WBC (Bld) [#/Vol] 4.7 10*3/uL Normal 4.4-11.0 [facility] Comment on above: Performed By: #### L 100.0100, L500.2500 ####[facility] [address] [place], [address] Carbon dioxide, total [Moles /volume] in Central venous bloodOrdered By: Vivek Villatoro on 01-05-2025 CO2 [Moles/Vol] 25.0 mmol/L 21.0-32.0 [facility] Chest 1 View (Portable)on Chest 1 View (Portable) Normal [facility] Chloride assayOrdered By: Marlon Villatoro on 01-05-2025 Chloride [Moles/Vol] 102 mmol/L 98-108 [facility] Emergency Department Summary on 01-05-2025 Emergency Department Summary Normal [facility] [facility] Eosinophil percentageOrdered By: Vivek Villatoro on 01-05-2025 Eosinophils/100 WBC (Bld) 5.1 % High 0-5 [facility] Erythrocyte distribution wid th ratioOrdered By: Vivek Villatoro on 01-05-2025 Erythrocyte distribution width (RBC) [Ratio] 15.4 % High 11.6-14.6 [facility] Erythrocyte distribution wid th standard deviationOrdered By: Vivek Villatoro on 01-05-2025 Erythrocyte distribution width (RBC) [Ratio] 47.2 fl High 35.1-43.9 [facility] Glomerular filtration rate ( GFR) estimation/1.73 sq m using serum, plasma, or whole bOrdered By: Vivek Villatoro on 01-05-2025 GFR/1.73 sq M.predicted among non-blacks MDRD (S/P/Bld) [Vol rate/Area] 50 mL/min/{1.73_m2} Low >60 [facility] H AND P Exam - [place] 01-05-2025 H&P Exam - Hospitalist Normal [facility] Hematocrit Auto (Bld) [Volum e fraction]Ordered By: Vivek Villatoro on 01-05-2025 Hematocrit (Bld) [Volume fraction] 39.3 % Low 40-54 [facility] Hemoglobin measurementOrdere d By: Vivek Villatoro on 01-05-2025 Hemoglobin (Bld) [Mass/Vol] 12.4 g/dL Low 13.0-16.5 [facility] Immature granulocytes/100 WB C Auto (Bld)Ordered By: Vivek Villatoro on 01-05-2025 Immature granulocytes/100 WBC (Bld) 0.000 % 0.0-0.9 [facility] Ketones Test strip Ql (U)Ord ered By: Vivek Villatoro on 01-05-2025 Ketones Ql (U) Negative Negative [facility] MCV (mean corpuscular volume ) determinationOrdered By: Vivek Villatoro on 01-05-2025 MCV (RBC) [Entitic vol] 84.5 fL 80-94 [facility] Mean corpuscular hemoglobin (MCH) determinationOrdered By: Vivek Villatoro on 01-05-2025 MCH (RBC) [Entitic mass] 26.7 pg Low 27.0-32.0 [facility] Microscopic analysis of urin e for red blood cells (RBC)Ordered By: Vivek Villatoro on 01-05-2025 Microscopic analysis of urine for red blood cells (RBC) 5-10 SEEN /hpf 0-5 [facility] Monocyte percentageOrdered B y: Vivek Villatoro on 01-05-2025 Monocytes/100 WBC (Bld) 16.1 % High 0-10 [facility] Mucus LM Ql (Urine sed)Order ed By: Vivek Villatoro on 01-05-2025 Mucus Ql (Urine sed) 0 SEEN /hpf [facility] Neutrophil percentageOrdered By: Vivek Villatoro on 01-05-2025 Neutrophils/100 WBC (Bld) 54.3 % 47-70 [facility] Nitrite Test strip Ql (U)Ord ered By: Vivek Villatoro on 01-05-2025 Nitrite Ql (U) Positive High Negative [facility] Platelet countOrdered By: Marlon Villatoro on 01-05-2025 Platelets (Bld) [#/Vol] 177 10*3/uL 150-450 [facility] Potassium measurement (mass/ volume)Ordered By: Vivek Villatoro on 01-05-2025 Potassium (Unsp spec) [Mass/Vol] 4.4 mmol/L 3.3-5.1 [facility] Protein Test strip Ql (U)Ord ered By: Vivek Villatoro on 01-05-2025 Protein Ql (U) 100 mg/dl High Negative [facility] RBC Auto (Bld) [#/Vol]Ordere d By: Vivek Villatoro on 01-05-2025 RBC (Bld) [#/Vol] 4.65 10*6/uL 4.6-6.2 [facility] Serum creatinine measurement (mass/volume)Ordered By: Vivek Villatoro on 01-05-2025 Creatinine [Mass/Vol] 1.50 mg/dL High 0.70-1.20 [facility] Serum glucose measurement (m ass/volume)Ordered By: Vivek Villatoro on 01-05-2025 Glucose [Mass/Vol] 104 mg/dL High 70-99 [facility] Serum or plasma calcium isidro urement (mass/volume)Ordered By: Vivek Villatoro on 01-05-2025 Calcium [Mass/Vol] 9.7 mg/dL 7.6-11.0 [facility] Serum or plasma urea nitroge n measurement (mass/volume)Ordered By: Vivek Villatoro on 01-05-2025 Urea nitrogen [Mass/Vol] 30 mg/dL High 4-19 [facility] Sodium levelOrdered By: Vivek Villatoro on 01-05-2025 Sodium [Moles/Vol] 139 mmol/L 133-145 [facility] Squamous epithelial cells de tection in urine sediment by light microscopyOrdered By: Vivek Villatoro on 01-05-2025 Epithelial cells.squamous LM Ql (Urine sed) 0 SEEN /hpf 0-5 [facility] Triple phosphate crystals de tection in urine sediment by light microscopyOrdered By: Vivek Villatoro on 01-05-2025 Triple phosphate crystals LM Ql (Urine sed) 1+ /hpf [facility] Urinalysis, Completeon 01-05 BACTERIA 2+ /hpf Normal None Seen [facility] Comment on above: Order Comment: COLLE CTOR TO SPECIFY Performed By: #### L 400.0001 ####[facility] [id number] [place], [address] WBC 5-10 SEEN Normal 0-5 [facility] Comment on above: Order Comment: VIVIANA CTOR TO SPECIFY Performed By: #### L 400.0001 ####[facility] [id number] [place], [address] RBC 5-10 SEEN Normal 0-5 [facility] Comment on above: Order Comment: VIVIANA CTOR TO SPECIFY Performed By: #### L 400.0001 ####[facility] [id number] [place], [address] TRIPLE PHOS 1+ /hpf Normal [facility] Comment on above: Order Comment: VIVIANA CTOR TO SPECIFY Performed By: #### L 400.0001 ####[facility] [id number] [place], [address] EPI,SQUAMOUS 0 SEEN Normal 0-5 [facility] Comment on above: Order Comment: VIVIANA CTOR TO SPECIFY Performed By: #### L 400.0001 ####[facility] [id number] [place], [address] Mucus Ql (Urine sed) 0 SEEN Normal [facility] Comment on above: Order Comment: VIVIANA CTOR TO SPECIFY Performed By: #### L 400.0001 ####[facility] [id number] [place], [address] Urine clarityOrdered By: Marii Villatoro on 01-05-2025 Clarity (U) Sl. Cloudy Clear [facility] Urine color determinationOrd ered By: Vivek Villatoro on 01-05-2025 Color (U) Yellow Yellow [facility] Urine cultureOrdered By: Marii Villatoro on 01-05-2025 Bacteria identified Cx Nom (U) Pseudomonas aeruginosa Abnormal [facility] Bacteria identified Cx Nom (U) Proteus mirabilis Abnormal [facility] Urine glucose detectionOrder ed By: Vivek Villatoro on 01-05-2025 Glucose Ql (U) Normal mg/dl Normal [facility] Urine leukocyte esterase det ection by dipstickOrdered By: Vivek Villatoro on 01-05-2025 Leukocyte esterase Test strip Ql (U) 500 /ul High Negative [facility] Urine pHOrdered By: Vivek waldron on 01-05-2025 pH (U) 8.0 [pH] 5.0 - 8.0 [facility] Urine sediment bacteria coun t by microscopy (number/high power field)Ordered By: Vviek Villatoro on 01-05-2025 Bacteria LM.HPF (Urine sed) [#/Area] 2 /[HPF] None Seen [facility] Urine specific gravity measu rementOrdered By: Vivek Villatoro on 01-05-2025 Specific gravity (U) [Rel density] 1.010 1.002-1.030 [facility] Urine urobilinogen measureme ntOrdered By: Vivek Villatoro on 01-05-2025 Urobilinogen Ql (U) Normal mg/dl Normal [facility] White blood cell (WBC) count Ordered By: Vivek Villatoro on 01-05-2025 WBC (Bld) [#/Vol] 4.7 10*3/uL 4.4-11.0 [facility] White blood cell countOrdere d By: Vivek Villatoro on 01-05-2025 White blood cell count 5-10 SEEN /hpf 0-5 [facility] CNCOon 01-01-2025 CNCO Letter Text Normal [facility] CNPNon 11-28-2024 REGANN Telephone (URCANT) JADON ALVAREZ ([id number]) 1955 M Date Time Provider Department 11/28/24 [...] Encounter Status:Closed by SHAR DOWNS on 11/28/24 [facility] CREATININE, POC (AK,MR)on Creatinine [Mass/Vol] 1.4 mg/dL Abnormal 0.60 - 1.30 mg/dL [facility] GFR/1.73 sq M.predicted among non-blacks MDRD (S/P/Bld) [Vol rate/Area] 54 mL/min/{1.73_m2} mL/min/1.73 m2 [facility] Interpretation and review of laboratory results Abnormal [facility] Location:[facility], [address], [place], [address] Adults (18+): eGFR is calculated using the 2020 CKD-EPI Creatinine Equation. Pediatric patients (<18): eGFR should be clinically calculated using the 2020 Silva Equation. The National [employer] provides online calculators. [facility] POINT OF CARE [facility] CT KIDNEY WO/W IVCONon 11-21 CT KIDNEY WO/W IVCON * * *Final Report* * * * * * SEE BOTTOM OF REPORT FOR ADDENDED TEXT * * * DATE OF EXAM: Nov 21 2024 11:34AM [facility] 0546 - CT KIDNEY WO/W IVCON / [...] be communicated with the ordering provider via [employer] staff mes (more content not included)... Normal [facility] Bedside Glucoseon 11-15-2024 FINGERSTICK GLU 110 mg/dL High 74-106 [facility] Comment on above: Result Comment: PETER PAYTONENT OF PATIENT CARE PER NURSING PROTOCOL Performed By: #### L 501.080 ####[facility] [id number] [place], [address] [facility] deOrdered By: Aaron Shannon on 11-08-2024 Glucose [Mass/Vol] 110 mg/dL High 74-106 [facility] Comment on above: MANAGEMENT OF PATIEN T CARE PER NURSING PROTOCOL CNOVon 11-01-2024 CNOV Office Visit (URCANT ) JADON ALVAREZ ([id number]) 1955 M Date Time Provider Department 4/23/25 2:15 PM SHAR DOWNS During your visit today, we recorded the following information about you: Shar Downs MD 11/01/2024 2:53 PM Signed [facility] ESTABLISHED PATIENT NOTE [...] by m (more content not included)... Normal [facility] .GFRon 10-23-2024 Estimated Glomerular Filtration Rate 59 ml/min/1.73sqm [facility] Comment on above: Result Comment: Stages of [...] ANEU, MG, ADIFF, GFR, BMP #### [place] [address] .MDWon 10-23-2024 Monocyte Distribution Width 16.95 Normal 0.00-20.00 [facility] Comment on above: Result Comment: For ED adult patients suspected of sepsis, MDW<=20.0 does not rule out sepsis or risk of sepsis Performed By: #### C BC, ANEU, MG, ADIFF, GFR, BMP #### [place] [address] .Manual Diffon 10-23-2024 Atypical Lymphs 2.0 % Normal 0.0-5.0 [facility] Comment on above: Performed By: #### C BC, ANEU, MG, ADIFF, GFR, BMP #### [place] [address] Aytpical Lymph, Abs Manual 0.1 10 3/mcL Normal 0.0-0.5 [facility] Comment on above: Performed By: #### C BC, ANEU, MG, ADIFF, GFR, BMP #### [place] [address] Bands 8.0 % High 0.0-5.0 [facility] Comment on above: Performed By: #### C BC, ANEU, MG, ADIFF, GFR, BMP #### [place] [address] Basophil %, Manual 0.0 % Normal 0.0-2.5 [facility] Comment on above: Performed By: #### C BC, ANEU, MG, ADIFF, GFR, BMP #### [place] [address] Basophil, Abs Manual 0.0 10 3/mcL Normal 0.0-0.3 [facility] Comment on above: Performed By: #### C BC, ANEU, MG, ADIFF, GFR, BMP #### [place] [address] Eosinophil %, Manual 2.0 % Normal 0.0-6.0 [facility] Comment on above: Performed By: #### C BC, ANEU, MG, ADIFF, GFR, BMP #### [address] [address] Eosinophil, Abs Manual 0.1 10 3/mcL Normal 0.0-0.7 [facility] Comment on above: Performed By: #### C BC, ANEU, MG, ADIFF, GFR, BMP #### [address] [address] Lymphocyte %, Manual 34.0 % Normal 20.0-40.0 [facility] Comment on above: Performed By: #### C BC, ANEU, MG, ADIFF, GFR, BMP #### [address] [address] Lymphocyte, Abs Manual 0.9 10 3/mcL Normal 0.9-4.3 [facility] Comment on above: Performed By: #### C BC, ANEU, MG, ADIFF, GFR, BMP #### [address] [address] Monocyte %, Manual 2.0 % Normal 2.0-13.0 [facility] Comment on above: Performed By: #### C BC, ANEU, MG, ADIFF, GFR, BMP #### [address] [address] Monocyte, Abs Manual 0.1 10 3/mcL Normal 0.1-1.4 [facility] Comment on above: Performed By: #### C BC, ANEU, MG, ADIFF, GFR, BMP #### [address] [address] Neutrophil %, Manual 52.0 % Normal 50.0-75.0 [facility] Comment on above: Performed By: #### C BC, ANEU, MG, ADIFF, GFR, BMP #### [address] [address] Neutrophil, Abs Manual 1.5 10 3/mcL Low 2.3-8.1 [facility] Comment on above: Performed By: #### C BC, ANEU, MG, ADIFF, GFR, BMP #### [address] [address] Nucleated RBC 0.0 /100 WBC Normal [facility] Comment on above: Performed By: #### C BC, ANEU, MG, ADIFF, GFR, BMP #### [address] [address] .Morphon 10-23-2024 Platelet Estimate Normal Normal [facility] Comment on above: Performed By: #### C BC, ANEU, MG, ADIFF, GFR, BMP #### [address] [address] RBC morphology finding Nom (Bld) Normal Normal [facility] Comment on above: Performed By: #### C BC, ANEU, MG, ADIFF, GFR, BMP #### [place] [address] ACETAon 10-23-2024 Acetaminophen [Mass/Vol] 0.0 ug/mL Low 10.0-30.0 [facility] Comment on above: Performed By: #### C BC, ANEU, MG, ADIFF, GFR, BMP #### [place] [address] Abril 10-23-2024 Ethanol Level <3 Normal [facility] Comment on above: Performed By: #### C BC, ANEU, MG, ADIFF, GFR, BMP #### [place] [id number] CBCon 10-23-2024 Erythrocyte distribution width (RBC) [Ratio] 15.7 % High 11.5-15.5 [facility] Comment on above: Performed By: #### C BC, ANEU, MG, ADIFF, GFR, BMP #### [place] [address] Hematocrit (Bld) [Volume fraction] 34.2 % Low 40.0-52.0 [facility] Comment on above: Performed By: #### C BC, ANEU, MG, ADIFF, GFR, BMP #### [place] [address] Hgb 11.1 G/dL Low 13.0-17.5 [facility] Comment on above: Performed By: #### C BC, ANEU, MG, ADIFF, GFR, BMP #### [address] [address] MCH (RBC) [Entitic mass] 27.5 pg Normal 27.0-33.0 [facility] Comment on above: Performed By: #### C BC, ANEU, MG, ADIFF, GFR, BMP #### [address] [address] MCHC 32.6 G/dL Normal 32.0-36.0 [facility] Comment on above: Performed By: #### C BC, ANEU, MG, ADIFF, GFR, BMP #### [address] [address] MCV (RBC) [Entitic vol] 84.3 fL Normal 81.0-100.0 [facility] Comment on above: Performed By: #### C BC, ANEU, MG, ADIFF, GFR, BMP #### [address] [address] Platelet 217 10 3/mcL Normal 150-450 [facility] Comment on above: Performed By: #### C BC, ANEU, MG, ADIFF, GFR, BMP #### [address] [address] Platelet mean volume (Bld) [Entitic vol] 9.5 fL Normal 6.4-10.5 [facility] Comment on above: Performed By: #### C BC, ANEU, MG, ADIFF, GFR, BMP #### [address] [address] RBC 4.06 10 6/mcL Low 4.50-6.00 [facility] Comment on above: Performed By: #### C BC, ANEU, MG, ADIFF, GFR, BMP #### [address] [address] WBC 2.8 10 3/mcL Low 4.5-10.8 [facility] Comment on above: Performed By: #### C BC, ANEU, MG, ADIFF, GFR, BMP #### [place] [id number] CMPon 10-23-2024 Albumin Level 2.8 G/dL Low 3.4-4.8 [facility] Comment on above: Performed By: #### C BC, ANEU, MG, ADIFF, GFR, BMP #### [place] [address] Albumin/Globulin [Mass ratio] 0.7 {ratio} Low 1.1-2.5 [facility] Comment on above: Performed By: #### C BC, ANEU, MG, ADIFF, GFR, BMP #### [place] [address] ALP [Catalytic activity/Vol] 89 U/L Normal 40-135 [facility] Comment on above: Performed By: #### C BC, ANEU, MG, ADIFF, GFR, BMP #### [place] [address] ALT [Catalytic activity/Vol] 14 U/L Low 16-63 [facility] Comment on above: Performed By: #### C BC, ANEU, MG, ADIFF, GFR, BMP #### [place] [address] AST [Catalytic activity/Vol] 15 U/L Normal 10-40 [facility] Comment on above: Performed By: #### C BC, ANEU, MG, ADIFF, GFR, BMP #### [address] [address] Bili Total 0.5 mg/dL Normal 0.2-1.0 [facility] Comment on above: Result Comment: Use of this assay is not recommended for patients undergoing treatment with eltrombopag due to the potential for falsely elevated results. Performed By: #### C BC, ANEU, MG, ADIFF, GFR, BMP #### [place] [address] BUN/Creatinine Ratio 14 ratio Normal 7-27 [facility] Comment on above: Performed By: #### C BC, ANEU, MG, ADIFF, GFR, BMP #### [place] [address] Calcium [Mass/Vol] 9.1 mg/dL Normal 8.4-10.2 [facility] Comment on above: Performed By: #### C BC, ANEU, MG, ADIFF, GFR, BMP #### [place] [address] Chloride [Moles/Vol] 104 mmol/L Normal 98-107 [facility] Comment on above: Performed By: #### C BC, ANEU, MG, ADIFF, GFR, BMP #### [place] [address] CO2 [Moles/Vol] 31 mmol/L Normal 23-31 [facility] Comment on above: Performed By: #### C BC, ANEU, MG, ADIFF, GFR, BMP #### [place] [address] Creatinine [Mass/Vol] 1.30 mg/dL Normal 0.70-1.30 [facility] Comment on above: Result Comment: Test ing performed on Siemens Dimension EXL analyzer using a modified kinetic Uyen technique. Performed By: #### C BC, ANEU, MG, ADIFF, GFR, BMP #### [place] [address] Electrolyte Balance 4.0 mEq/L Normal 4.0-15.0 [facility] Comment on above: Performed By: #### C BC, ANEU, MG, ADIFF, GFR, BMP #### [place] [address] Globulin 4.1 G/dL High 1.5-3.8 [facility] Comment on above: Performed By: #### C BC, ANEU, MG, ADIFF, GFR, BMP #### [place] [address] Glucose [Mass/Vol] 101 mg/dL Normal 80-115 [facility] Comment on above: Performed By: #### C BC, ANEU, MG, ADIFF, GFR, BMP #### [place] [address] Potassium [Moles/Vol] 4.8 mmol/L Normal 3.5-5.1 [facility] Comment on above: Performed By: #### C BC, ANEU, MG, ADIFF, GFR, BMP #### [place] [address] Sodium [Moles/Vol] 139 mmol/L Normal 136-145 [facility] Comment on above: Performed By: #### C BC, ANEU, MG, ADIFF, GFR, BMP #### [place] [address] Total Protein 6.9 G/dL Normal 6.4-8.2 [facility] Comment on above: Performed By: #### C BC, ANEU, MG, ADIFF, GFR, BMP #### [place] [address] Urea nitrogen [Mass/Vol] 18 mg/dL Normal 7-18 [facility] Comment on above: Performed By: #### C BC, ANEU, MG, ADIFF, GFR, BMP #### [place] [address] CVFLURVon 10-23-2024 FLU A PCR Negative Normal Negative [facility] Comment on above: Performed By: #### C VFLURV #### [place] [address] FLU B PCR Negative Normal Negative [facility] Comment on above: Performed By: #### C VFLURV #### [place] [address] RSV PCR Negative Normal Negative [facility] Comment on above: Performed By: #### C VFLURV #### [place] [address] SARS-CoV-2 (COVID-19) RNA SUMAN+probe Ql (Unsp spec) Negative Normal Negative [facility] Comment on above: Result Comment: Resu lts [...] results. Performed By: #### C VFLURV #### [place] [address] SALon 10-23-2024 Salicylate Level 1.1 mg/dL Low 2.8-20.0 [facility] Comment on above: Performed By: #### C BC, ANEU, MG, ADIFF, GFR, BMP #### [place] [address] UDRUGon 10-23-2024 Amphetamine (u) Negative Normal Negative [facility] Comment on above: Performed By: #### C BC, ANEU, MG, ADIFF, GFR, BMP #### [place] [address] Barbiturate (u) Negative Normal Negative [facility] Comment on above: Performed By: #### C BC, ANEU, MG, ADIFF, GFR, BMP #### [place] [address] Benzodiazepine (u) Negative Normal Negative [facility] Comment on above: Performed By: #### C BC, ANEU, MG, ADIFF, GFR, BMP #### [place] [address] Cannabinoid (u) Negative Normal Negative [facility] Comment on above: Performed By: #### C BC, ANEU, MG, ADIFF, GFR, BMP #### [address] [address] Cocaine Ql (U) Negative Normal Negative [facility] Comment on above: Performed By: #### C BC, ANEU, MG, ADIFF, GFR, BMP #### [address] [address] Methadone Ql (U) Negative Normal Negative [facility] Comment on above: Performed By: #### C BC, ANEU, MG, ADIFF, GFR, BMP #### [address] [address] Opiate (u) Negative Normal Negative [facility] Comment on above: Performed By: #### C BC, ANEU, MG, ADIFF, GFR, BMP #### [place] [address] PCP (u) Negative Normal Negative [facility] Comment on above: Performed By: #### C BC, ANEU, MG, ADIFF, GFR, BMP #### [address] [address] Urine Drugs screened: See Below Normal [facility] Comment on above: Result Comment: This drug [...] BC, ANEU, MG, ADIFF, GFR, BMP #### [place] [address] URINon 10-23-2024 Color (U) Yellow Normal [facility] Comment on above: Performed By: #### C BC, ANEU, MG, ADIFF, GFR, BMP #### [place] [address] Glucose (U) [Mass/Vol] Negative Normal Negative [facility] Comment on above: Performed By: #### C BC, ANEU, MG, ADIFF, GFR, BMP #### [place] [address] Ketones Ql (U) Negative Normal Negative [facility] Comment on above: Performed By: #### C BC, ANEU, MG, ADIFF, GFR, BMP #### [place] [address] Protein (U) [Mass/Vol] 100 mg/dL Abnormal Negative [facility] Comment on above: Performed By: #### C BC, ANEU, MG, ADIFF, GFR, BMP #### [place] [address] UA Appear Clear Normal Clear [facility] Comment on above: Performed By: #### C BC, ANEU, MG, ADIFF, GFR, BMP #### [place] [address] UA Blood Moderate Abnormal Negative [facility] Comment on above: Performed By: #### C BC, ANEU, MG, ADIFF, GFR, BMP #### [place] [address] UA Leuk Est Negative Normal Negative [facility] Comment on above: Performed By: #### C BC, ANEU, MG, ADIFF, GFR, BMP #### [place] [address] UA Nitrite Negative Normal Negative [facility] Comment on above: Performed By: #### C BC, ANEU, MG, ADIFF, GFR, BMP #### [place] [address] UA pH 6.0 Normal 5.0 - 8.0 [facility] Comment on above: Performed By: #### C BC, ANEU, MG, ADIFF, GFR, BMP #### [place] [address] UA Spec Grav >=1.030 Abnormal 1.015-1.025 [facility] Comment on above: Performed By: #### C BC, ANEU, MG, ADIFF, GFR, BMP #### [place] [id number] [place], [place] [address] UA Specimen Type Clean Catch Normal [facility] Comment on above: Performed By: #### C BC, ANEU, MG, ADIFF, GFR, BMP #### [place] [address] [place], [place] [address] UA Urobilinogen 0.2 E.U./dL Normal 0.2-1.0 [facility] Comment on above: Performed By: #### C BC, ANEU, MG, ADIFF, GFR, BMP #### [place] [address] [place], [place] [address] Urobilinogen (U) [Mass/Vol] Negative Normal Negative [facility] Comment on above: Performed By: #### C BC, ANEU, MG, ADIFF, GFR, BMP #### [address] [address] Culture, Blood (WB)on 2024 CUB No growth in 5 days. Normal [facility] Comment on above: Performed By: #### M 200.1000 ####[facility] [id number] [place], [address] Basic Metabolic Profile (BMP )on 10-19-2024 BUN Normal 4-19 [facility] Comment on above: Result Comment: Canc elled via OM: Order cancelled - Patient discharged Performed By: #### L 100.0100, L500.2500 ####[facility] [id number] [place], [address] BUN/CRE Normal 10-20 [facility] Comment on above: Result Comment: Canc elled via OM: Order cancelled - Patient discharged Performed By: #### L 100.0100, L500.2500 ####[facility] [address] [place], [address] Calcium Normal 7.6-11.0 [facility] Comment on above: Result Comment: Canc elled via OM: Order cancelled - Patient discharged Performed By: #### L 100.0100, L500.2500 ####[facility] [address] [place], [address] CL Normal 98-108 [facility] Comment on above: Result Comment: Canc elled via OM: Order cancelled - Patient discharged Performed By: #### L 100.0100, L500.2500 ####[facility] [address] [place], [address] CO2 Normal 21.0-32.0 [facility] Comment on above: Result Comment: Canc elled via OM: Order cancelled - Patient discharged Performed By: #### L 100.0100, L500.2500 ####[facility] [address] [place], [address] CREAT,SERUM Normal 0.70-1.20 [facility] Comment on above: Result Comment: Canc elled via OM: Order cancelled - Patient discharged Performed By: #### L 100.0100, L500.2500 ####[facility] [address] [place], [address] eGFR Normal >60 [facility] Comment on above: Result Comment: Canc elled via OM: Order cancelled - Patient discharged Performed By: #### L 100.0100, L500.2500 ####[facility] [address] [place], [address] GAP Normal 5-15 [facility] Comment on above: Result Comment: Canc elled via OM: Order cancelled - Patient discharged Performed By: #### L 100.0100, L500.2500 ####[facility] [address] [place], [address] GLU Normal 70-99 [facility] Comment on above: Result Comment: Canc elled via OM: Order cancelled - Patient discharged Performed By: #### L 100.0100, L500.2500 ####[facility] [address] [place], [address] Potassium Normal 3.3-5.1 [facility] Comment on above: Result Comment: Canc elled via OM: Order cancelled - Patient discharged Performed By: #### L 100.0100, L500.2500 ####[facility] [address] [place], [address] Basic Metabolic Profile (BMP) Normal 133-145 [facility] Comment on above: Result Comment: Canc elled via OM: Order cancelled - Patient discharged Performed By: #### L 100.0100, L500.2500 ####[facility] [address] [place], [address] CBC W/Diff, Automatedon 04- 0-2024 Absolute Neut Normal 2.0-7.7 [facility] Comment on above: Result Comment: Canc elled via OM: Order cancelled - Patient discharged Performed By: #### L 100.0100, L500.2500 ####[facility] [address] [place], [address] HCT Normal 40-54 [facility] Comment on above: Result Comment: Canc elled via OM: Order cancelled - Patient discharged Performed By: #### L 100.0100, L500.2500 ####[facility] [address] [place], [address] HGB Normal 13.0-16.5 [facility] Comment on above: Result Comment: Canc elled via OM: Order cancelled - Patient discharged Performed By: #### L 100.0100, L500.2500 ####[facility] [address] [place], [address] MCH Normal 27.0-32.0 [facility] Comment on above: Result Comment: Canc elled via OM: Order cancelled - Patient discharged Performed By: #### L 100.0100, L500.2500 ####[facility] [address] [place], [address] MCHC Normal 32-36 [facility] Comment on above: Result Comment: Canc elled via OM: Order cancelled - Patient discharged Performed By: #### L 100.0100, L500.2500 ####[facility] [address] [place], [address] MCV Normal 80-94 [facility] Comment on above: Result Comment: Canc elled via OM: Order cancelled - Patient discharged Performed By: #### L 100.0100, L500.2500 ####[facility] [address] [place], [address] NEUT% Normal 47-70 [facility] Comment on above: Result Comment: Canc elled via OM: Order cancelled - Patient discharged Performed By: #### L 100.0100, L500.2500 ####[facility] [address] [place], [address] PLT Normal 150-450 [facility] Comment on above: Result Comment: Canc elled via OM: Order cancelled - Patient discharged Performed By: #### L 100.0100, L500.2500 ####[facility] [address] [place], [address] RBC Normal 4.6-6.2 [facility] Comment on above: Result Comment: Canc elled via OM: Order cancelled - Patient discharged Performed By: #### L 100.0100, L500.2500 ####[facility] [address] [place], [address] RDW CV Normal 11.6-14.6 [facility] Comment on above: Result Comment: Canc elled via OM: Order cancelled - Patient discharged Performed By: #### L 100.0100, L500.2500 ####[facility] [address] [place], [address] RDW SD Normal 35.1-43.9 [facility] Comment on above: Result Comment: Canc elled via OM: Order cancelled - Patient discharged Performed By: #### L 100.0100, L500.2500 ####[facility] [address] [place], [address] WBC Normal 4.4-11.0 [facility] Comment on above: Result Comment: Canc elled via OM: Order cancelled - Patient discharged Performed By: #### L 100.0100, L500.2500 ####[facility] [address] [place], [address] Absolute lymphocyte countOrd ered By: Vivek Gates on 10-18-2024 Lymphocytes Auto (Unsp spec) [#/Vol] 0.95 10*3/uL 0.83-4.51 [facility] Absolute neutrophil countOrd ered By: Vivek Gates on 10-18-2024 Neutrophils (Bld) [#/Vol] 2.5 10*3/uL 2.0-7.7 [facility] Anion gap in Serum or Plasma Ordered By: Vivek Gates on 10-18-2024 Anion gap [Moles/Vol] 8 mmol/L 5-15 [facility] Automated lymphocyte count a s percentage of total leukocytesOrdered By: Vivek Gates on 10-18-2024 Lymphocytes/100 WBC Auto (Unsp spec) 22.8 % 19-41 [facility] BUN/creatinine ratioOrdered By: Vivek Gates on 10-18-2024 Urea nitrogen/Creatinine [Mass ratio] 15.5 mg/mg 10- [facility] Basic Metabolic Profile (BMP )on 10-18-2024 BUN/CRE 15.5 RATIO Normal - [facility] Comment on above: Performed By: #### L 100.0100, L500.2500 ####[facility] [address] [place], [address] Calcium [Mass/Vol] 9.0 mg/dL Normal 7.6-11.0 [facility] Comment on above: Performed By: #### L 100.0100, L500.2500 ####[facility] [address] [place], [address] Chloride [Moles/Vol] 102 mmol/L Normal 98-108 [facility] Comment on above: Performed By: #### L 100.0100, L500.2500 ####[facility] [address] [place], [address] CO2 [Moles/Vol] 25.9 mmol/L Normal 21.0-32.0 [facility] Comment on above: Performed By: #### L 100.0100, L500.2500 ####[facility] [address] [place], [address] Creatinine [Mass/Vol] 0.92 mg/dL Normal 0.70-1.20 [facility] Comment on above: Performed By: #### L 100.0100, L500.2500 ####[facility] [address] [place], [address] ECRCL 101.83 ml/min Normal 50-250 [facility] Comment on above: Performed By: #### L 100.0100, L500.2500 ####[facility] [address] [place], [address] GAP 8 Normal 5-15 [facility] Comment on above: Performed By: #### L 100.0100, L500.2500 ####[facility] [address] [place], [address] GFR/1.73 sq M.predicted among non-blacks MDRD (S/P/Bld) [Vol rate/Area] 90 mL/min/{1.73_m2} Normal >60 [facility] Comment on above: Result Comment: mL/m in/1.73m2 CKD-EPI Creatinine Equation (2020) Performed By: #### L 100.0100, L500.2500 ####[facility] [address] [place], [address] Glucose [Mass/Vol] 104 mg/dL High 70-99 [facility] Comment on above: Performed By: #### L 100.0100, L500.2500 ####[facility] [address] [place], [address] Potassium [Moles/Vol] 4.1 mmol/L Normal 3.3-5.1 [facility] Comment on above: Performed By: #### L 100.0100, L500.2500 ####[facility] [address] [place], [address] Sodium [Moles/Vol] 136 mmol/L Normal 133-145 [facility] Comment on above: Performed By: #### L 100.0100, L500.2500 ####[facility] [address] [place], [address] Urea nitrogen [Mass/Vol] 14 mg/dL Normal 4-19 [facility] Comment on above: Performed By: #### L 100.0100, L500.2500 ####[facility] [address] [place], [address] Basophil percentageOrdered B y: Vivek Gates on 10-18-2024 Basophils/100 WBC (Bld) 0.5 % 0-1 [facility] Bedside Glucoseon 10-18-2024 FINGERSTICK GLU 146 mg/dL High 74-106 [facility] Comment on above: Result Comment: PETER GEMENT OF PATIENT CARE PER NURSING PROTOCOL Performed By: #### L 501.080 ####[facility] [address] [place], [address] FINGERSTICK GLU 155 mg/dL High 74-106 [facility] Comment on above: Result Comment: PETER GEMENT OF PATIENT CARE PER NURSING PROTOCOL Performed By: #### L 501.080 ####[facility] [address] [place], [address] FINGERSTICK GLU 92 mg/dL Normal 74-106 [facility] Comment on above: Result Comment: PETER GEMENT OF PATIENT CARE PER NURSING PROTOCOL Performed By: #### L 501.080 ####[facility] [address] [place], [address] FINGERSTICK GLU 121 mg/dL High 74-106 [facility] Comment on above: Result Comment: PETER GEMENT OF PATIENT CARE PER NURSING PROTOCOL Performed By: #### L 501.080 ####[facility] [address] [place], [address] CBC W/Diff, Automatedon 04-0 9-2024 Absolute Lymph 0.95 X10 3/uL Normal 0.83-4.51 [facility] Comment on above: Performed By: #### L 100.0100, L500.2500 ####[facility] [address] [place], [address] Absolute Neut 2.5 X10 3/uL Normal 2.0-7.7 [facility] Comment on above: Performed By: #### L 100.0100, L500.2500 ####[facility] [address] [place], [address] Basophils/100 WBC (Bld) 0.5 % Normal 0-1 [facility] Comment on above: Performed By: #### L 100.0100, L500.2500 ####[facility] [address] [place], [address] Eosinophils/100 WBC (Bld) 1.7 % Normal 0-5 [facility] Comment on above: Performed By: #### L 100.0100, L500.2500 ####[facility] [address] [place], [address] Erythrocyte distribution width (RBC) [Ratio] 15.9 % High 11.6-14.6 [facility] Comment on above: Performed By: #### L 100.0100, L500.2500 ####[facility] [address] [place], [address] Hematocrit (Bld) [Volume fraction] 32.2 % Low 40-54 [facility] Comment on above: Performed By: #### L 100.0100, L500.2500 ####[facility] [address] [place], [address] Hemoglobin (Bld) [Mass/Vol] 10.3 g/dL Low 13.0-16.5 [facility] Comment on above: Performed By: #### L 100.0100, L500.2500 ####[facility] [address] [place], [address] IG% 0.700 Normal 0.0-0.9 [facility] Comment on above: Result Comment: IG% - Immature Granulocytes (promyelocytes, myelocytes andmetamyelocytes) > 1% indicates that a LEFT SHIFT is Present. Performed By: #### L 100.0100, L500.2500 ####[facility] [address] [place], [address] Lymphocytes/100 WBC (Bld) 22.8 % Normal 19-41 [facility] Comment on above: Performed By: #### L 100.0100, L500.2500 ####[facility] [address] [place], [address] MCH (RBC) [Entitic mass] 27.7 pg Normal 27.0-32.0 [facility] Comment on above: Performed By: #### L 100.0100, L500.2500 ####[facility] [address] [place], [address] MCHC (RBC) [Mass/Vol] 32.0 g/dL Normal 32-36 [facility] Comment on above: Performed By: #### L 100.0100, L500.2500 ####[facility] [address] [place], [address] MCV (RBC) [Entitic vol] 86.6 fL Normal 80-94 [facility] Comment on above: Performed By: #### L 100.0100, L500.2500 ####[facility] [address] [place], [address] Monocytes/100 WBC (Bld) 13.7 % High 0-10 [facility] Comment on above: Performed By: #### L 100.0100, L500.2500 ####[facility] [address] [place], [address] Neutrophils/100 WBC (Bld) 60.6 % Normal 47-70 [facility] Comment on above: Performed By: #### L 100.0100, L500.2500 ####[facility] [address] [place], [address] Nucleated RBC (Bld) [#/Vol] 0 10*3/uL Normal 0-5 [facility] Comment on above: Performed By: #### L 100.0100, L500.2500 ####[facility] [address] [place], [address] Platelet mean volume (Bld) [Entitic vol] 12.2 fL High 6.2-12.0 [facility] Comment on above: Performed By: #### L 100.0100, L500.2500 ####[facility] [address] [place], [address] Platelets (Bld) [#/Vol] 214 10*3/uL Normal 150-450 [facility] Comment on above: Performed By: #### L 100.0100, L500.2500 ####[facility] [address] [place], [address] RBC (Bld) [#/Vol] 3.72 10*6/uL Low 4.6-6.2 [facility] Comment on above: Performed By: #### L 100.0100, L500.2500 ####[facility] [address] [place], [address] RDW SD 50.1 fl High 35.1-43.9 [facility] Comment on above: Performed By: #### L 100.0100, L500.2500 ####[facility] [address] [place], [address] WBC (Bld) [#/Vol] 4.2 10*3/uL Low 4.4-11.0 [facility] Comment on above: Performed By: #### L 100.0100, L500.2500 ####[facility] [address] [place], [address] Carbon dioxide, total [Moles /volume] in Central venous bloodOrdered By: Vivek Gates on 10-18-2024 CO2 [Moles/Vol] 25.9 mmol/L 21.0-32.0 [facility] Chloride assayOrdered By: Marlon Gates on 10-18-2024 Chloride [Moles/Vol] 102 mmol/L 98-108 [facility] Culture, Blood (WB)on 2024 CUB Blood cultures x2, f rom two different sites No growth in 5 days. Normal [facility] Comment on above: Performed By: #### M 200.1000 ####[facility] [address] [place], [address] CUB Blood cultures x2, f rom two different sites No growth in 5 days. Normal [facility] Comment on above: Performed By: #### L 300.3900, L300.4310, L500.4050, L503.6005, L100.0100, M200.1000 ####[facility] [address] [place], [address] Eosinophil percentageOrdered By: Vivek Gates on 10-18-2024 Eosinophils/100 WBC (Bld) 1.7 % 0-5 [facility] Erythrocyte distribution wid th (RBC) [Ratio]Ordered By: Vivek Gates on 10-18-2024 Erythrocyte distribution width (RBC) [Entitic vol] 50.1 fL High 35.1-43.9 [facility] Erythrocyte distribution wid th ratioOrdered By: Vivek Gates on 10-18-2024 Erythrocyte distribution width (RBC) [Ratio] 15.9 % High 11.6-14.6 [facility] Erythrocyte distribution wid th standard deviationOrdered By: Vivek Gates on 10-18-2024 Erythrocyte distribution width (RBC) [Ratio] 50.1 fl High 35.1-43.9 [facility] Estimation of creatinine jass aranceOrdered By: Vivek Gates on 10-18-2024 Estimated Creatinine Clearance Calc 101.83 ml/min 50-250 [facility] GFR/1.73 sq M.predicted kayla g non-blacks MDRD (S/P/Bld) [Vol rate/Area]Ordered By: Vivek Gates on 10-18-2024 Estimated GFR (MDRD) Non-Af Amer 90 >60 [facility] Comment on above: mL/min/1.73m2 CKD-EP I Creatinine Equation (2020) Glomerular filtration rate ( GFR) estimation/1.73 sq m using serum, plasma, or whole bOrdered By: Vivek Gates on 10-18-2024 GFR/1.73 sq M.predicted among non-blacks MDRD (S/P/Bld) [Vol rate/Area] 90 mL/min/{1.73_m2} >60 [facility] Comment on above: mL/min/1.73m2 CKD-EP I Creatinine Equation (2020) Glucose measurement at bedsi deOrdered By: Vivek Gates on 10-18-2024 Bedside Glucose (Misc Panel) 146 mg/dL High 74-106 [facility] Comment on above: MANAGEMENT OF PATIEN T CARE PER NURSING PROTOCOL Glucose [Mass/Vol] 146 mg/dL High 74-106 [facility] Comment on above: MANAGEMENT OF PATIEN T CARE PER NURSING PROTOCOL Hematocrit Auto (Bld) [Volum e fraction]Ordered By: Vivek Gates on 10-18-2024 Hematocrit (Bld) [Volume fraction] 32.2 % Low 40-54 [facility] Hemoglobin measurementOrdere d By: Vivek Gates on 10-18-2024 Hemoglobin (Bld) [Mass/Vol] 10.3 g/dL Low 13.0-16.5 [facility] Immature granulocytes/100 WB C Auto (Bld)Ordered By: Vivek Gates on 10-18-2024 Immature granulocytes/100 WBC (Bld) 0.700 % 0.0-0.9 [facility] Comment on above: IG% - Immature Granu locytes (promyelocytes, myelocytes and metamyelocytes) > 1% indicates that a LEFT SHIFT is Present. Lymphocytes Auto (Unsp spec) [#/Vol]Ordered By: Vivek Gates on 10-18-2024 Lymphocytes (Bld) [#/Vol] 0.95 10*3/uL 0.83-4.51 [facility] Lymphocytes/100 WBC Auto (Un sp spec)Ordered By: Vivek Gates on 10-18-2024 Lymphocytes/100 WBC (Bld) 22.8 % 19-41 [facility] MCV (mean corpuscular volume ) determinationOrdered By: Vivek Gates on 10-18-2024 MCV (RBC) [Entitic vol] 86.6 fL 80-94 [facility] Mean corpuscular hemoglobin (MCH) determinationOrdered By: Vivek Gates on 10-18-2024 MCH (RBC) [Entitic mass] 27.7 pg 27.0-32.0 [facility] Mean corpuscular hemoglobin concentration (MCHC) determinationOrdered By: Vivek Gates on 10-18-2024 MCHC (RBC) [Mass/Vol] 32.0 g/dL 32-36 [facility] Mean platelet volume determi nationOrdered By: Vivek Gates on 10-18-2024 Platelet mean volume (Bld) [Entitic vol] 12.2 fL High 6.2-12.0 [facility] Monocyte percentageOrdered B y: Vivek Gates on 10-18-2024 Monocytes/100 WBC (Bld) 13.7 % High 0-10 [facility] Neutrophil percentageOrdered By: Vivek Gates on 10-18-2024 Neutrophils/100 WBC (Bld) 60.6 % 47-70 [facility] Nucleated red blood cell per centageOrdered By: Vivek Gates on 10-18-2024 Nucleated RBC/100 WBC (Bld) [Ratio] 0 % 0-5 [facility] Platelet countOrdered By: Marlon Gates on 10-18-2024 Platelets (Bld) [#/Vol] 214 10*3/uL 150-450 [facility] Potassium (Unsp spec) [Mass/ Vol]Ordered By: Vivek Gates on 10-18-2024 Potassium [Moles/Vol] 4.1 mmol/L 3.3-5.1 [facility] Potassium measurement (mass/ volume)Ordered By: Vivek Gates on 10-18-2024 Potassium (Unsp spec) [Mass/Vol] 4.1 mmol/L 3.3-5.1 [facility] RBC Auto (Bld) [#/Vol]Ordere d By: Vivek Gates on 10-18-2024 RBC (Bld) [#/Vol] 3.72 10*6/uL Low 4.6-6.2 [facility] Serum creatinine measurement (mass/volume)Ordered By: Vivek Gates on 10-18-2024 Creatinine [Mass/Vol] 0.92 mg/dL 0.70-1.20 [facility] Serum glucose measurement (m ass/volume)Ordered By: Vivek Gates on 10-18-2024 Glucose [Mass/Vol] 104 mg/dL High 70-99 [facility] Serum or plasma calcium isidro urement (mass/volume)Ordered By: Vivek Gates on 10-18-2024 Calcium [Mass/Vol] 9.0 mg/dL 7.6-11.0 [facility] Serum or plasma urea nitroge n measurement (mass/volume)Ordered By: Vivek Gates on 10-18-2024 Urea nitrogen [Mass/Vol] 14 mg/dL 4-19 [facility] Sodium levelOrdered By: Vivek Gates on 10-18-2024 Sodium [Moles/Vol] 136 mmol/L 133-145 [facility] Transesophageal echocardiogr am reportOrdered By: Dane Sun on 10-18-2024 Study report [facility] [place] [address] Echo Transesophageal (FLORENCE) 10/18/24 0842 MR#: [id number] Acct: [id number] Name: JADON ALVAREZ Rep #:[id number] 3 : 1955 69 From: Dane Iniguez Attending Dr: Dr. Vivek Gates, DO Status: ADM IN Ordering Dr: Vivek Gates DO Date: Location: [facility] Sex: M C Admitted: 10/13/24 Reason For Study Reason For Study: bacteremia Medication FLORENCE probe 6VT-D (SN 576331) passed with minimal difficulty. No complications were noted. Cetacaine Topical Crosby given X3 orally. Versed 1 mg given [...] _ Dane Sun MD CC: Dr. Vivek Gates DO; Kathleen Herzog MD ~ Date Dictated: 10/18/2442 Date Transcribed: 10/18/24 1024 Compilation Clerk: Signed [facility] Work Phone: Trough vancomycin levelOrder ed By: Monika Garcias on 10-18-2024 Vancomycin trough [Mass/Vol] 14.2 ug/mL 5.0-15.0 [facility] Comment on above: Recommended goal tro ugh [...] therapy recommended for serious lifethreatening infections include:- Fworvrisbt-Mvyyuyycnmht-Adsabtcmj (Ventilator/Healtcare Associated)-Sepsis PLEASE CONTACT PHARMACY SERVICES (#[id number]) FOR INTERPRETATIONOF RESULTS. Vancomycin trough [Mass/Vol] Ordered By: Monika Garcias on 10-18-2024 Vancomycin Level Trough 14.2 ug/mL 5.0-15.0 [facility] Comment on above: Recommended goal tro [...] therapy recommended for serious lifethreatening infections include:- Hjniobedap-Jqcxewcnybez-Bgmngocnf (Ventilator/Healt[employer] Associated)-Sepsis PLEASE CONTACT PHARMACY SERVICES (#6462) FOR INTERPRETATIONOF RESULTS. Vancomycin, Trough Levelon 0 10-18-2024 VANCO, TROUGH 14.2 ug/mL Normal 5.0-15.0 [facility] Comment on above: Order Comment: Comme nts: Trough to be drawn 30 mins prior to scheduled [id number] Result Comment: Xavier mmended goal trough ranges [...] therapy recommended for serious lifethreatening infections include:- Gdkjapkmgn-Mewjnmrwfuhh-Alnmhylym (Ventilator/Healtcare Associated)-SepsisPLEASE CONTACT PHARMACY SERVICES (#0149) FOR INTERPRETATIONOF RESULTS. Performed By: #### L 501.8820 ####[facility] [address] [place], [address] White blood cell (WBC) count Ordered By: Vivek Gates on 10-18-2024 WBC (Bld) [#/Vol] 4.2 10*3/uL Low 4.4-11.0 [facility] Basic Metabolic Profile (BMP )on 10-17-2024 BUN/CRE 17.7 RATIO Normal 10-20 [facility] Comment on above: Performed By: #### L 500.2500, L100.0100 ####[facility] [address] [place], [address] Calcium [Mass/Vol] 8.3 mg/dL Normal 7.6-11.0 [facility] Comment on above: Performed By: #### L 500.2500, L100.0100 ####[facility] [address] [place], [address] Chloride [Moles/Vol] 106 mmol/L Normal 98-108 [facility] Comment on above: Performed By: #### L 500.2500, L100.0100 ####[facility] [address] [place], [address] CO2 [Moles/Vol] 24.6 mmol/L Normal 21.0-32.0 [facility] Comment on above: Performed By: #### L 500.2500, L100.0100 ####[facility] [address] [place], [address] Creatinine [Mass/Vol] 0.88 mg/dL Normal 0.70-1.20 [facility] Comment on above: Performed By: #### L 500.2500, L100.0100 ####[facility] [address] [place], [address] ECRCL 106.46 ml/min Normal 50-250 [facility] Comment on above: Performed By: #### L 500.2500, L100.0100 ####[facility] [address] [place], [address] GAP 9 Normal 5-15 [facility] Comment on above: Performed By: #### L 500.2500, L100.0100 ####[facility] [address] [place], [address] GFR/1.73 sq M.predicted among non-blacks MDRD (S/P/Bld) [Vol rate/Area] 93 mL/min/{1.73_m2} Normal >60 [facility] Comment on above: Result Comment: mL/m in/1.73m2 CKD-EPI Creatinine Equation (2020) Performed By: #### L 500.2500, L100.0100 ####[facility] [address] [place], [address] Glucose [Mass/Vol] 101 mg/dL High 70-99 [facility] Comment on above: Performed By: #### L 500.2500, L100.0100 ####[facility] [address] [place], [address] Potassium [Moles/Vol] 3.9 mmol/L Normal 3.3-5.1 [facility] Comment on above: Performed By: #### L 500.2500, L100.0100 ####[facility] [address] [place], [address] Sodium [Moles/Vol] 139 mmol/L Normal 133-145 [facility] Comment on above: Performed By: #### L 500.2500, L100.0100 ####[facility] [address] [place], [address] Urea nitrogen [Mass/Vol] 16 mg/dL Normal 4-19 [facility] Comment on above: Performed By: #### L 500.2500, L100.0100 ####[facility] [address] [place], [address] Bedside Glucoseon 10-17-2024 FINGERSTICK GLU 119 mg/dL High 74-106 [facility] Comment on above: Result Comment: PETER GEMENT OF PATIENT CARE PER NURSING PROTOCOL Performed By: #### L 501.080 ####[facility] [address] [place], [address] FINGERSTICK GLU 160 mg/dL High 74-106 [facility] Comment on above: Result Comment: PETER GEMENT OF PATIENT CARE PER NURSING PROTOCOL Performed By: #### L 501.080 ####[facility] [address] [place], [address] FINGERSTICK GLU 133 mg/dL High 74-106 [facility] Comment on above: Result Comment: PETER GEMENT OF PATIENT CARE PER NURSING PROTOCOL Performed By: #### L 501.080 ####[facility] [address] [place], [address] FINGERSTICK GLU 108 mg/dL High 74-106 [facility] Comment on above: Result Comment: PETER HINSON OF PATIENT CARE PER NURSING PROTOCOL Performed By: #### L 501.080 ####[facility] [address] [place], [address] CBC W/Diff, Automatedon 04-0 8-2024 Absolute Lymph 1.28 X10 3/uL Normal 0.83-4.51 [facility] Comment on above: Performed By: #### L 500.2500, L100.0100 ####[facility] [address] [place], [address] Absolute Neut 2.0 X10 3/uL Normal 2.0-7.7 [facility] Comment on above: Performed By: #### L 500.2500, L100.0100 ####[facility] [address] [place], [address] Basophils/100 WBC (Bld) 0.5 % Normal 0-1 [facility] Comment on above: Performed By: #### L 500.2500, L100.0100 ####[facility] [address] [place], [address] Eosinophils/100 WBC (Bld) 2.7 % Normal 0-5 [facility] Comment on above: Performed By: #### L 500.2500, L100.0100 ####[facility] [address] [place], [address] Erythrocyte distribution width (RBC) [Ratio] 16.1 % High 11.6-14.6 [facility] Comment on above: Performed By: #### L 500.2500, L100.0100 ####[facility] [address] [place], [address] Hematocrit (Bld) [Volume fraction] 30.1 % Low 40-54 [facility] Comment on above: Performed By: #### L 500.2500, L100.0100 ####[facility] [address] [place], [address] Hemoglobin (Bld) [Mass/Vol] 9.6 g/dL Low 13.0-16.5 [facility] Comment on above: Performed By: #### L 500.2500, L100.0100 ####[facility] [address] [place], [address] IG% 1.200 High 0.0-0.9 [facility] Comment on above: Result Comment: IG% - Immature Granulocytes (promyelocytes, myelocytes andmetamyelocytes) > 1% indicates that a LEFT SHIFT is Present. Performed By: #### L 500.2500, L100.0100 ####[facility] [address] [place], [address] Lymphocytes/100 WBC (Bld) 31.1 % Normal 19-41 [facility] Comment on above: Performed By: #### L 500.2500, L100.0100 ####[facility] [address] [place], [address] MCH (RBC) [Entitic mass] 27.4 pg Normal 27.0-32.0 [facility] Comment on above: Performed By: #### L 500.2500, L100.0100 ####[facility] [address] [place], [address] MCHC (RBC) [Mass/Vol] 31.9 g/dL Low 32-36 [facility] Comment on above: Performed By: #### L 500.2500, L100.0100 ####[facility] [address] [place], [address] MCV (RBC) [Entitic vol] 86.0 fL Normal 80-94 [facility] Comment on above: Performed By: #### L 500.2500, L100.0100 ####[facility] [address] [place], [address] Monocytes/100 WBC (Bld) 16.1 % High 0-10 [facility] Comment on above: Performed By: #### L 500.2500, L100.0100 ####[facility] [address] [place], [address] Neutrophils/100 WBC (Bld) 48.4 % Normal 47-70 [facility] Comment on above: Performed By: #### L 500.2500, L100.0100 ####[facility] [address] [place], [address] Nucleated RBC (Bld) [#/Vol] 0 10*3/uL Normal 0-5 [facility] Comment on above: Performed By: #### L 500.2500, L100.0100 ####[facility] [address] [place], [address] Platelet mean volume (Bld) [Entitic vol] 12.3 fL High 6.2-12.0 [facility] Comment on above: Performed By: #### L 500.2500, L100.0100 ####[facility] [address] [place], [address] Platelets (Bld) [#/Vol] 212 10*3/uL Normal 150-450 [facility] Comment on above: Performed By: #### L 500.2500, L100.0100 ####[facility] [address] [place], [address] RBC (Bld) [#/Vol] 3.50 10*6/uL Low 4.6-6.2 [facility] Comment on above: Performed By: #### L 500.2500, L100.0100 ####[facility] [address] [place], [address] RDW SD 50.5 fl High 35.1-43.9 [facility] Comment on above: Performed By: #### L 500.2500, L100.0100 ####[facility] [address] [place], [address] WBC (Bld) [#/Vol] 4.1 10*3/uL Low 4.4-11.0 [facility] Comment on above: Performed By: #### L 500.2500, L100.0100 ####[facility] [address] [place], [address] Echo Transesophageal (FLORENCE)on 10-17-2024 Echo Transesophageal (FLORENCE) Normal [facility] Vancomycin, Random Levelon 0 10-17-2024 VANCO, RANDOM 10.3 ug/mL Normal 0.0-15.0 [facility] Comment on above: Result Comment: VANC OMYCIN STANDARD DRUG THERAPY: CRITICAL VALUE IS > 15.0 mg/LVANCOMYCIN HIGH INTENSITY THERAPY: CRITICAL VALUE IS > 20.0 mg/LPLEASE CONTACT PHARMACY SERVICES (#1616) FOR INTERPRETATIONOF RESULTS. THIS RESULT DOES NOT REPRESENT A PEAK OR TROUGHLEVEL FOR THIS DRUG. Performed By: #### L 501.8850 ####[facility] [address] [place], [address] Arterial study reportOrdered By: Vivek Cárdenas on 10-16-2024 Noninvasive arteriosclerosis study report [facility] [address] [facility] [place] [address] Lower Ext Art Exam w/o Exercis 10/16/24 1506 MR#: [id number] Acct: [id number] Name: JADON ALVAREZ Rep #:[id number] : 1955 69 From: Vivek Iniguez Attending Dr: Dr. Vivek Gates, DO Status: ADM IN Ordering Dr: Shayna Montoya DPM Date: 10/15/24 [place] [facility] [place] Sex: M C Admitted: 10/13/24 Reason For [...] Physician: Kathleen Herzog Performed By: Rasheed Norman, Chris 10/16/241940 Date _ Vivek Cárdenas MD CC: DPJuan Daniel Montoya; Dr. Vivek Gates DO; Kathleen Herzog MD ~ Date Dictated: 10/16/24 1506 Date Transcribed: 10/16/241940 Compilation Clerk: Signed [facility] Work Phone: Basic Metabolic Profile (BMP )on 10-16-2024 BUN/CRE 20.0 RATIO Normal 10-20 [facility] Comment on above: Performed By: #### L 100.0100, L500.2500 ####[facility] [address] [place], [address] Calcium [Mass/Vol] 8.3 mg/dL Normal 7.6-11.0 [facility] Comment on above: Performed By: #### L 100.0100, L500.2500 ####[facility] [address] [place], [address] Chloride [Moles/Vol] 108 mmol/L Normal 98-108 [facility] Comment on above: Performed By: #### L 100.0100, L500.2500 ####[facility] [address] [place], [address] CO2 [Moles/Vol] 26.2 mmol/L Normal 21.0-32.0 [facility] Comment on above: Performed By: #### L 100.0100, L500.2500 ####[facility] [address] [place], [address] Creatinine [Mass/Vol] 0.98 mg/dL Normal 0.70-1.20 [facility] Comment on above: Performed By: #### L 100.0100, L500.2500 ####[facility] [address] [place], [address] ECRCL 95.59 ml/min Normal 50-250 [facility] Comment on above: Performed By: #### L 100.0100, L500.2500 ####[facility] [address] [place], [address] GAP 5 Normal 5-15 [facility] Comment on above: Performed By: #### L 100.0100, L500.2500 ####[facility] [address] [place], [address] GFR/1.73 sq M.predicted among non-blacks MDRD (S/P/Bld) [Vol rate/Area] 84 mL/min/{1.73_m2} Normal >60 [facility] Comment on above: Result Comment: mL/m in/1.73m2 CKD-EPI Creatinine Equation (2020) Performed By: #### L 100.0100, L500.2500 ####[facility] [address] [place], [address] Glucose [Mass/Vol] 109 mg/dL High 70-99 [facility] Comment on above: Performed By: #### L 100.0100, L500.2500 ####[facility] [address] [place], [address] Potassium [Moles/Vol] 4.0 mmol/L Normal 3.3-5.1 [facility] Comment on above: Performed By: #### L 100.0100, L500.2500 ####[facility] [address] [place], [address] Sodium [Moles/Vol] 140 mmol/L Normal 133-145 [facility] Comment on above: Performed By: #### L 100.0100, L500.2500 ####[facility] [address] [place], [address] Urea nitrogen [Mass/Vol] 20 mg/dL High 4-19 [facility] Comment on above: Performed By: #### L 100.0100, L500.2500 ####[facility] [address] [place], [address] Bedside Glucoseon 10-16-2024 FINGERSTICK GLU 150 mg/dL High 74-106 [facility] Comment on above: Result Comment: PETER HINSON OF PATIENT CARE PER NURSING PROTOCOL Performed By: #### L 501.080 ####[facility] [address] [place], [address] FINGERSTICK GLU 192 mg/dL High 74-106 [facility] Comment on above: Result Comment: PETER GEMENT OF PATIENT CARE PER NURSING PROTOCOL Performed By: #### L 501.080 ####[facility] [address] [place], [address] FINGERSTICK GLU 93 mg/dL Normal 74-106 [facility] Comment on above: Result Comment: PETER GEMENT OF PATIENT CARE PER NURSING PROTOCOL Performed By: #### L 501.080 ####[facility] [address] [place], [address] FINGERSTICK GLU 103 mg/dL Normal 74-106 [facility] Comment on above: Result Comment: PETER GEMENT OF PATIENT CARE PER NURSING PROTOCOL Performed By: #### L 501.080 ####[facility] [address] [place], [address] Blood cultureOrdered By: Marii Gates on 10-16-2024 Bacteria identified Cx Nom (Bld) No growth in 5 days. [facility] Bacteria identified Cx Nom (Bld) No growth in 5 days. [facility] Blood manual differential co mment interpretation (narrative result)Ordered By: Colby May on 10-16-2024 Manual differential comment Kenny (Bld) [Interp] SCANNED [facility] Comment on above: AUTO DIFF OK CBC W/Diff, Automatedon 04-0 SMEAR COMMENT SCANNED Normal [facility] Comment on above: Result Comment: AUTO DIFF OK Performed By: #### L 100.0100, L500.2500 ####[facility] [address] [place], [address] Consultation - Infectious Dx on 10-16-2024 Consultation - Infectious Dx Normal [facility] Culture, Blood (WB)on 2024 CUB Normal [facility] Comment on above: Performed By: #### M 100.636, M200.1000 ####[facility] [address] [place], [address] Manual differential comment Kenny (Bld) [Interp]Ordered By: Colby May on 10-16-2024 Differential Comment SCANNED [facility] Comment on above: AUTO DIFF OK Serum or plasma vancomycin m easurement (mass/volume)Ordered By: Monika Garcias on 10-16-2024 Vancomycin [Mass/Vol] 10.3 ug/mL 0.0-15.0 [facility] Comment on above: VANCOMYCIN STANDARD DRUG THERAPY: CRITICAL VALUE IS > 15.0 mg/L VANCOMYCIN HIGH INTENSITY THERAPY: CRITICAL VALUE IS > 20.0 mg/L PLEASE CONTACT PHARMACY SERVICES (#6398) FOR INTERPRETATIONOF RESULTS. THIS RESULT DOES NOT REPRESENT A PEAK OR TROUGHLEVEL FOR THIS DRUG. Vancomycin [Mass/Vol]Ordered By: Monika Garcias on 10-16-2024 Random Vancomycin Level 10.3 ug/mL 0.0-15.0 [facility] Comment on above: VANCOMYCIN STANDARD DRUG THERAPY: CRITICAL VALUE IS > 15.0 mg/L VANCOMYCIN HIGH INTENSITY THERAPY: CRITICAL VALUE IS > 20.0 mg/L PLEASE CONTACT PHARMACY SERVICES (#0982) FOR INTERPRETATIONOF RESULTS. THIS RESULT DOES NOT REPRESENT A PEAK OR TROUGHLEVEL FOR THIS DRUG. Vancomycin, Trough Levelon 0 10-16-2024 VANCO, TROUGH 24.2 ug/mL High 5.0-15.0 [facility] Comment on above: Order Comment: Comme nts: Trough to be drawn 30 mins prior to scheduled [id number] Result Comment: Xavier mmended goal trough ranges [...] therapy recommended for serious lifethreatening infections include:- Etjuabpgjs-Zaltdqjqligm-Xczdrvhcp (Ventilator/Healtcare Associated)-SepsisPLEASE CONTACT PHARMACY SERVICES (#4918) FOR INTERPRETATIONOF RESULTS. Performed By: #### L 501.2254 ####[facility] [address] [place], [address] Venous duplex ultrasound rep ortOrdered By: Vivek Cárdenas on 10-16-2024 [facility] [address] [place] [address] Venous Duplex US - Jorden Extrem 10/16/24 0821 MR#: [id number] Acct: [id number] Name: JADON ALVAREZ Rep #:[id number] : 1955 69 From: Vivek Iniguez Attending [...] Saul Wang Performed By: Sheri Jones RVT 10/16/241915 Date _ Vivek Cárdenas MD CC: DPJuan Daniel Montoya; Dr. Vivek Gates DO; Kathleen Herzog MD ~ Date Dictated: 10/16/24820 Date Transcribed: 10/16/241915 Compilation Clerk: Signed [facility] Work Phone: Wound Cultureon 10-16-2024 WC Normal [facility] Comment on above: Performed By: #### M 100.2000, M100.3000 ####[facility] [address] [place], [address] Basic Metabolic Profile (BMP )on 10-15-2024 BUN/CRE 19.7 RATIO Normal 10-20 [facility] Comment on above: Performed By: #### L 100.0100, L500.2500 ####[facility] [address] [place], [address] Calcium [Mass/Vol] 8.3 mg/dL Normal 7.6-11.0 [facility] Comment on above: Performed By: #### L 100.0100, L500.2500 ####[facility] [address] [place], [address] Chloride [Moles/Vol] 107 mmol/L Normal 98-108 [facility] Comment on above: Performed By: #### L 100.0100, L500.2500 ####[facility] [address] [place], [address] CO2 [Moles/Vol] 25.0 mmol/L Normal 21.0-32.0 [facility] Comment on above: Performed By: #### L 100.0100, L500.2500 ####[facility] [address] [place], [address] Creatinine [Mass/Vol] 0.94 mg/dL Normal 0.70-1.20 [facility] Comment on above: Performed By: #### L 100.0100, L500.2500 ####[facility] [address] [place], [address] ECRCL 99.66 ml/min Normal 50-250 [facility] Comment on above: Performed By: #### L 100.0100, L500.2500 ####[facility] [address] [place], [address] GAP 8 Normal 5-15 [facility] Comment on above: Performed By: #### L 100.0100, L500.2500 ####[facility] [address] [place], [address] GFR/1.73 sq M.predicted among non-blacks MDRD (S/P/Bld) [Vol rate/Area] 87 mL/min/{1.73_m2} Normal >60 [facility] Comment on above: Result Comment: mL/m in/1.73m2 CKD-EPI Creatinine Equation (2020) Performed By: #### L 100.0100, L500.2500 ####[facility] [address] [place], [address] Glucose [Mass/Vol] 106 mg/dL High 70-99 [facility] Comment on above: Performed By: #### L 100.0100, L500.2500 ####[facility] [address] [place], [address] Potassium [Moles/Vol] 3.9 mmol/L Normal 3.3-5.1 [facility] Comment on above: Performed By: #### L 100.0100, L500.2500 ####[facility] [address] [place], [address] Sodium [Moles/Vol] 140 mmol/L Normal 133-145 [facility] Comment on above: Performed By: #### L 100.0100, L500.2500 ####[facility] [address] [place], [address] Urea nitrogen [Mass/Vol] 19 mg/dL Normal 4-19 [facility] Comment on above: Performed By: #### L 100.0100, L500.2500 ####[facility] [address] [place], [address] Bedside Glucoseon 10-15-2024 FINGERSTICK GLU 138 mg/dL High 74-106 [facility] Comment on above: Result Comment: PETER GEMENT OF PATIENT CARE PER NURSING PROTOCOL Performed By: #### L 501.080 ####[facility] [address] [place], [address] FINGERSTICK GLU 170 mg/dL High 74-106 [facility] Comment on above: Result Comment: PETER GEMENT OF PATIENT CARE PER NURSING PROTOCOL Performed By: #### L 501.080 ####[facility] [address] [place], [address] FINGERSTICK GLU 118 mg/dL High 74-106 [facility] Comment on above: Result Comment: PETER GEMENT OF PATIENT CARE PER NURSING PROTOCOL Performed By: #### L 501.080 ####[facility] [address] [place], [address] FINGERSTICK GLU 113 mg/dL High 74-106 [facility] Comment on above: Result Comment: PETER GEMENT OF PATIENT CARE PER NURSING PROTOCOL Performed By: #### L 501.080 ####[facility] [address] [place], [address] Blood polychromasia detectio n by light microscopyOrdered By: Colby May on 10-15-2024 Polychromasia LM Ql (Bld) 1+ [facility] CBC W/Diff, Automatedon 04-0 PLT EST SLT DEC Normal [facility] Comment on above: Performed By: #### L 100.0100, L500.2500 ####[facility] [address] [place], [address] POLYCHROMASIA 1+ Normal [facility] [facility] Comment on above: Performed By: #### L 100.0100, L500.2500 ####[facility] [address] [place], [address] Gram Stainon 10-15-2024 GS List Antibiotics Las t 48 Hours? Vancomycin Right leg wound Gram Stain No Epithelial cells 1+ Gram positive cocci Normal [facility] Comment on above: Performed By: #### M 100.2000, M100.3000 ####[facility] [address] [place], [address] Lower Ext Art Exam w/o Exerc raul 10-15-2024 Lower Ext Art Exam w/o Exercis Normal [facility] Platelet estimateOrdered By: Colby May on 10-15-2024 Platelets LM Ql (Bld) SLT DEC ADEQ [facility] Platelets LM Ql (Bld)Ordered By: Colby May on 10-15-2024 Platelet Estimate SLT DEC [facility] Polychromasia LM Ql (Bld)Ord ered By: Colby May on 10-15-2024 Polychromasia 1+ [facility] Venous Duplex US - Jorden Extre mon 10-15-2024 Venous Duplex US - Jorden Extrem Normal [facility] Basic Metabolic Profile (BMP )on 10-14-2024 BUN/CRE 22.5 RATIO High 10-20 [facility] Comment on above: Performed By: #### L 500.2500, L100.0100 ####[facility] [address] [place], [address] Calcium [Mass/Vol] 8.3 mg/dL Normal 7.6-11.0 [facility] Comment on above: Performed By: #### L 500.2500, L100.0100 ####[facility] [address] [place], [address] Chloride [Moles/Vol] 108 mmol/L Normal 98-108 [facility] Comment on above: Performed By: #### L 500.2500, L100.0100 ####[facility] [address] [place], [address] CO2 [Moles/Vol] 21.8 mmol/L Normal 21.0-32.0 [facility] Comment on above: Performed By: #### L 500.2500, L100.0100 ####[facility] [address] [place], [address] Creatinine [Mass/Vol] 0.92 mg/dL Normal 0.70-1.20 [facility] Comment on above: Performed By: #### L 500.2500, L100.0100 ####[facility] [address] [place], [address] ECRCL 101.83 ml/min Normal 50-250 [facility] Comment on above: Performed By: #### L 500.2500, L100.0100 ####[facility] [address] [place], [address] GAP 10 Normal 5-15 [facility] Comment on above: Performed By: #### L 500.2500, L100.0100 ####[facility] [address] [place], [address] GFR/1.73 sq M.predicted among non-blacks MDRD (S/P/Bld) [Vol rate/Area] 90 mL/min/{1.73_m2} Normal >60 [facility] Comment on above: Result Comment: mL/m in/1.73m2 CKD-EPI Creatinine Equation (2020) Performed By: #### L 500.2500, L100.0100 ####[facility] [address] [place], [address] Glucose [Mass/Vol] 96 mg/dL Normal 70-99 [facility] Comment on above: Performed By: #### L 500.2500, L100.0100 ####[facility] [address] [place], [address] Potassium [Moles/Vol] 3.8 mmol/L Normal 3.3-5.1 [facility] Comment on above: Performed By: #### L 500.2500, L100.0100 ####[facility] [address] [place], [address] Sodium [Moles/Vol] 139 mmol/L Normal 133-145 [facility] Comment on above: Performed By: #### L 500.2500, L100.0100 ####[facility] [address] [place], [address] Urea nitrogen [Mass/Vol] 21 mg/dL High 4-19 [facility] Comment on above: Performed By: #### L 500.2500, L100.0100 ####[facility] [address] [place], [address] BUN Normal -19 [facility] Comment on above: Result Comment: Canc elled via OM: Order cancelled - Patient discharged Performed By: #### L 100.0100, L500.2500 ####[facility] [address] [place], [address] BUN/CRE Normal -20 [facility] Comment on above: Result Comment: Canc elled via OM: Order cancelled - Patient discharged Performed By: #### L 100.0100, L500.2500 ####[facility] [address] [place], [address] Calcium Normal 7.6-11.0 [facility] Comment on above: Result Comment: Canc elled via OM: Order cancelled - Patient discharged Performed By: #### L 100.0100, L500.2500 ####[facility] [address] [place], [address] CL Normal 98-108 [facility] Comment on above: Result Comment: Canc elled via OM: Order cancelled - Patient discharged Performed By: #### L 100.0100, L500.2500 ####[facility] [address] [place], [address] CO2 Normal 21.0-32.0 [facility] Comment on above: Result Comment: Canc elled via OM: Order cancelled - Patient discharged Performed By: #### L 100.0100, L500.2500 ####[facility] [address] [place], [address] CREAT,SERUM Normal 0.70-1.20 [facility] Comment on above: Result Comment: Canc elled via OM: Order cancelled - Patient discharged Performed By: #### L 100.0100, L500.2500 ####[facility] [address] [place], [address] eGFR Normal >60 [facility] Comment on above: Result Comment: Canc elled via OM: Order cancelled - Patient discharged Performed By: #### L 100.0100, L500.2500 ####[facility] [address] [place], [address] GAP Normal 5-15 [facility] Comment on above: Result Comment: Canc elled via OM: Order cancelled - Patient discharged Performed By: #### L 100.0100, L500.2500 ####[facility] [address] [place], [address] GLU Normal 70-99 [facility] Comment on above: Result Comment: Canc elled via OM: Order cancelled - Patient discharged Performed By: #### L 100.0100, L500.2500 ####[facility] [address] [place], [address] Potassium Normal 3.3-5.1 [facility] Comment on above: Result Comment: Canc elled via OM: Order cancelled - Patient discharged Performed By: #### L 100.0100, L500.2500 ####[facility] [address] [place], [address] Basic Metabolic Profile (BMP) Normal 133-145 [facility] Comment on above: Result Comment: Canc elled via OM: Order cancelled - Patient discharged Performed By: #### L 100.0100, L500.2500 ####[facility] [address] [place], [address] Bedside Glucoseon 10-14-2024 FINGERSTICK GLU 150 mg/dL High 74-106 [facility] Comment on above: Result Comment: PETER GEMENT OF PATIENT CARE PER NURSING PROTOCOL Performed By: #### L 501.080 ####[facility] [address] [place], [address] FINGERSTICK GLU 126 mg/dL High 74-106 [facility] Comment on above: Result Comment: PETER GEMENT OF PATIENT CARE PER NURSING PROTOCOL Performed By: #### L 501.080 ####[facility] [address] [place], [address] FINGERSTICK GLU 93 mg/dL Normal 74-106 [facility] Comment on above: Result Comment: PETER GEMENT OF PATIENT CARE PER NURSING PROTOCOL Performed By: #### L 501.080 ####[facility] [address] [place], [address] CBC W/Diff, Automatedon 04-0 PLT EST SLT Normal ADEQ [facility] Comment on above: Performed By: #### L 500.2500, L100.0100 ####[facility] [address] [place], [address] PLT MORPH LARGE Normal [facility] Comment on above: Performed By: #### L 500.2500, L100.0100 ####[facility] [address] [place], [address] Absolute Neut Normal 2.0-7.7 [facility] Comment on above: Result Comment: Canc elled via OM: Order cancelled - Patient discharged Performed By: #### L 100.0100, L500.2500 ####[facility] [address] [place], [address] HCT Normal 40-54 [facility] Comment on above: Result Comment: Canc elled via OM: Order cancelled - Patient discharged Performed By: #### L 100.0100, L500.2500 ####[facility] [address] [place], [address] HGB Normal 13.0-16.5 [facility] Comment on above: Result Comment: Canc elled via OM: Order cancelled - Patient discharged Performed By: #### L 100.0100, L500.2500 ####[facility] [address] [place], [address] MCH Normal 27.0-32.0 [facility] Comment on above: Result Comment: Canc elled via OM: Order cancelled - Patient discharged Performed By: #### L 100.0100, L500.2500 ####[facility] [address] [place], [address] MCHC Normal 32-36 [facility] Comment on above: Result Comment: Canc elled via OM: Order cancelled - Patient discharged Performed By: #### L 100.0100, L500.2500 ####[facility] [address] [place], [address] MCV Normal 80-94 [facility] Comment on above: Result Comment: Canc elled via OM: Order cancelled - Patient discharged Performed By: #### L 100.0100, L500.2500 ####[facility] [address] [place], [address] NEUT% Normal 47-70 [facility] Comment on above: Result Comment: Canc elled via OM: Order cancelled - Patient discharged Performed By: #### L 100.0100, L500.2500 ####[facility] [address] [place], [address] PLT Normal 150-450 [facility] Comment on above: Result Comment: Canc elled via OM: Order cancelled - Patient discharged Performed By: #### L 100.0100, L500.2500 ####[facility] [address] [place], [address] RBC Normal 4.6-6.2 [facility] Comment on above: Result Comment: Canc elled via OM: Order cancelled - Patient discharged Performed By: #### L 100.0100, L500.2500 ####[facility] [address] [place], [address] RDW CV Normal 11.6-14.6 [facility] Comment on above: Result Comment: Canc elled via OM: Order cancelled - Patient discharged Performed By: #### L 100.0100, L500.2500 ####[facility] [address] [place], [address] RDW SD Normal 35.1-43.9 [facility] Comment on above: Result Comment: Canc elled via OM: Order cancelled - Patient discharged Performed By: #### L 100.0100, L500.2500 ####[facility] [address] [place], [address] WBC Normal 4.4-11.0 [facility] Comment on above: Result Comment: Canc elled via OM: Order cancelled - Patient discharged Performed By: #### L 100.0100, L500.2500 ####[facility] [address] [place], [address] Echocardiogram study reportO rdered By: Suraj Quinn on 10-14-2024 Study report [facility] [address] [place] [address] Echo Complete W/ Contrast 10/14/24 0914 MR#: [id number] Acct: [id number] Name: JADON ALVAREZ Rep #:[id number] 5 : 1955 69 From: Suraj laguerre MD Attending Dr: Dr. Colby May MD Status: ADM IN Ordering Dr: Monika Garcias MD Date: 10/13/24 [place] [facility] [place] Sex: M C Admitted: 10/13/24 Reason For [...] MD; Kathleen Herzog MD ~ Date Dictated: 10/14/24913 Date Transcribed: 10/14/241347 Compilation Clerk: Signed [facility] Work Phone: Gram stainOrdered By: Anais May on 10-14-2024 Microscopic observation Gram stain Nom (Unsp spec) [facility] Platelet morphologyOrdered B y: Monika Garcias on 10-14-2024 Platelet morphology finding Nom (Bld) [facility] Platelet morphology finding Nom (Bld)Ordered By: Monika Garcias on 10-14-2024 Platelet Morphology Comment [facility] Routine wound cultureOrdered By: Colby May on 10-14-2024 Microbial culture, routine Meth. resistant Staph. aureus Abnormal [facility] Wound Culture Meth. resistant Stap h. aureus Abnormal [facility] Wound Culture Negative Abnormal [facility] Vancomycin, Random Levelon 0 10-14-2024 VANCO, RANDOM 15.9 ug/mL High 0.0-15.0 [facility] Comment on above: Result Comment: VANC OMYCIN STANDARD DRUG THERAPY: CRITICAL VALUE IS > 15.0 mg/LVANCOMYCIN HIGH INTENSITY THERAPY: CRITICAL VALUE IS > 20.0 mg/LPLEASE CONTACT PHARMACY SERVICES (#2391) FOR INTERPRETATIONOF RESULTS. THIS RESULT DOES NOT REPRESENT A PEAK OR TROUGHLEVEL FOR THIS DRUG. Performed By: #### L 501.8850 ####[facility] [address] [place], [address] Vancomycin, Trough Levelon 0 10-14-2024 VANCO, TROUGH 22.3 ug/mL High 5.0-15.0 [facility] Comment on above: Order Comment: 1400 Result [...] therapy recommended for serious lifethreatening infections include:- Fhbaicuche-Gnrbjkbezpuz-Hjnzxiyzo (Ventilator/Healtcare Associated)-SepsisPLEASE CONTACT PHARMACY SERVICES (#1904) FOR INTERPRETATIONOF RESULTS. Performed By: #### L 501.8820 ####[facility] [address] [place], [place], [id number] Absolute neutrophil countOrd ered By: Shayna Martinez on 10-13-2024 Neutrophils (Bld) [#/Vol] 2.2 10*3/uL 2.0-7.7 [facility] Activated partial thrombopla stin time (aPTT) in platelet poor plasma by coagulation aOrdered By: Shayna Martinez on 10-13-2024 aPTT Coag (PPP) [Time] 33.8 s 24.1-36.2 [facility] Anion gap in Serum or Plasma Ordered By: Shayna Martinez on 10-13-2024 Anion gap [Moles/Vol] 9 mmol/L 5-15 [facility] BC GPC IDon 10-13-2024 GPC ID Normal [facility] Comment on above: Performed By: #### M 100.636, M200.1000 ####[facility] [address] [place], [place], [address] BUN/creatinine ratioOrdered By: Shayna Martinez on 10-13-2024 Urea nitrogen/Creatinine [Mass ratio] 28.2 mg/mg High 10-20 [facility] Basic Metabolic Profile (BMP )on 10-13-2024 BUN Normal 4-19 [facility] Comment on above: Result Comment: Canc elled via OM: Order cancelled - Patient discharged Performed By: #### L 500.2500, L100.0100 ####[facility] [address] [place], [address] BUN/CRE Normal 10-20 [facility] Comment on above: Result Comment: Canc elled via OM: Order cancelled - Patient discharged Performed By: #### L 500.2500, L100.0100 ####[facility] [address] [place], [address] Calcium Normal 7.6-11.0 [facility] Comment on above: Result Comment: Canc elled via OM: Order cancelled - Patient discharged Performed By: #### L 500.2500, L100.0100 ####[facility] [address] [place], [address] CL Normal 98-108 [facility] Comment on above: Result Comment: Canc elled via OM: Order cancelled - Patient discharged Performed By: #### L 500.2500, L100.0100 ####[facility] [address] [place], [address] CO2 Normal 21.0-32.0 [facility] Comment on above: Result Comment: Canc elled via OM: Order cancelled - Patient discharged Performed By: #### L 500.2500, L100.0100 ####[facility] [address] [place], [address] CREAT,SERUM Normal 0.70-1.20 [facility] Comment on above: Result Comment: Canc elled via OM: Order cancelled - Patient discharged Performed By: #### L 500.2500, L100.0100 ####[facility] [address] [place], [address] eGFR Normal >60 [facility] Comment on above: Result Comment: Canc elled via OM: Order cancelled - Patient discharged Performed By: #### L 500.2500, L100.0100 ####[facility] [address] [place], [address] GAP Normal 5-15 [facility] Comment on above: Result Comment: Canc elled via OM: Order cancelled - Patient discharged Performed By: #### L 500.2500, L100.0100 ####[facility] [address] [place], [address] GLU Normal 70-99 [facility] Comment on above: Result Comment: Canc elled via OM: Order cancelled - Patient discharged Performed By: #### L 500.2500, L100.0100 ####[facility] [address] [place], [address] Potassium Normal 3.3-5.1 [facility] Comment on above: Result Comment: Canc elled via OM: Order cancelled - Patient discharged Performed By: #### L 500.2500, L100.0100 ####[facility] [address] [place], [address] Basic Metabolic Profile (BMP) Normal 133-145 [facility] Comment on above: Result Comment: Canc elled via OM: Order cancelled - Patient discharged Performed By: #### L 500.2500, L100.0100 ####[facility] [address] [place], [address] Basophil percentageOrdered B y: Shayna Martinez on 10-13-2024 Basophils/100 WBC (Bld) 1.0 % 0-1 [facility] Bedside Glucoseon 10-13-2024 FINGERSTICK GLU 114 mg/dL High 74-106 [facility] Comment on above: Result Comment: PETER PAYTONENT OF PATIENT CARE PER NURSING PROTOCOL Performed By: #### L 501.080 ####[facility] [address] [place], [address] Bilirubin, totalOrdered By: Shayna Martinez on 10-13-2024 Bilirubin [Mass/Vol] 0.44 mg/dL 0.00-1.30 [facility] Blood cultureOrdered By: Jose Luis Martinez on 10-13-2024 Bacteria identified Cx Nom (Bld) No growth in 5 days. [facility] Bacteria identified Cx Nom (Bld) No growth in 5 days. [facility] CBC W/Diff, Automatedon Absolute Lymph 0.70 X10 3/uL Low 0.83-4.51 [facility] Comment on above: Performed By: #### L 300.3900, L300.4310, L500.4050, L503.6005, L100.0100, M200.1000 ####[facility] [address] [place], [address] Absolute Neut 2.2 X10 3/uL Normal 2.0-7.7 [facility] Comment on above: Performed By: #### L 300.3900, L300.4310, L500.4050, L503.6005, L100.0100, M200.1000 ####[facility] [address] [place], [address] Basophils/100 WBC (Bld) 1.0 % Normal 0-1 [facility] Comment on above: Performed By: #### L 300.3900, L300.4310, L500.4050, L503.6005, L100.0100, M200.1000 ####[facility] [address] [place], [address] Eosinophils/100 WBC (Bld) 2.5 % Normal 0-5 [facility] Comment on above: Performed By: #### L 300.3900, L300.4310, L500.4050, L503.6005, L100.0100, M200.1000 ####[facility] [address] [place], [address] Erythrocyte distribution width (RBC) [Ratio] 16.7 % High 11.6-14.6 [facility] Comment on above: Performed By: #### L 300.3900, L300.4310, L500.4050, L503.6005, L100.0100, M200.1000 ####[facility] [address] [place], [address] Hematocrit (Bld) [Volume fraction] 34.3 % Low 40-54 [facility] Comment on above: Performed By: #### L 300.3900, L300.4310, L500.4050, L503.6005, L100.0100, M200.1000 ####[facility] [address] [place], [address] Hemoglobin (Bld) [Mass/Vol] 10.7 g/dL Low 13.0-16.5 [facility] Comment on above: Performed By: #### L 300.3900, L300.4310, L500.4050, L503.6005, L100.0100, M200.1000 ####[facility] [address] [place], [address] IG% 1.500 High 0.0-0.9 [facility] Comment on above: Result Comment: IG% - Immature Granulocytes (promyelocytes, myelocytes andmetamyelocytes) > 1% indicates that a LEFT SHIFT is Present. Performed By: #### L 300.3900, L300.4310, L500.4050, L503.6005, L100.0100, M200.1000 ####[facility] [address] [place], [address] Lymphocytes/100 WBC (Bld) 17.7 % Low 19-41 [facility] Comment on above: Performed By: #### L 300.3900, L300.4310, L500.4050, L503.6005, L100.0100, M200.1000 ####[facility] [address] [place], [address] MCH (RBC) [Entitic mass] 27.1 pg Normal 27.0-32.0 [facility] Comment on above: Performed By: #### L 300.3900, L300.4310, L500.4050, L503.6005, L100.0100, M200.1000 ####[facility] [address] [place], [address] MCHC (RBC) [Mass/Vol] 31.2 g/dL Low 32-36 [facility] Comment on above: Performed By: #### L 300.3900, L300.4310, L500.4050, L503.6005, L100.0100, M200.1000 ####[facility] [address] [place], [address] MCV (RBC) [Entitic vol] 86.8 fL Normal 80-94 [facility] Comment on above: Performed By: #### L 300.3900, L300.4310, L500.4050, L503.6005, L100.0100, M200.1000 ####[facility] [address] [place], [address] Monocytes/100 WBC (Bld) 22.0 % High 0-10 [facility] Comment on above: Performed By: #### L 300.3900, L300.4310, L500.4050, L503.6005, L100.0100, M200.1000 ####[facility] [address] [place], [address] Neutrophils/100 WBC (Bld) 55.3 % Normal 47-70 [facility] Comment on above: Performed By: #### L 300.3900, L300.4310, L500.4050, L503.6005, L100.0100, M200.1000 ####[facility] [address] [place], [address] Nucleated RBC (Bld) [#/Vol] 0 10*3/uL Normal 0-5 [facility] Comment on above: Performed By: #### L 300.3900, L300.4310, L500.4050, L503.6005, L100.0100, M200.1000 ####[facility] [address] [place], [address] Platelets (Bld) [#/Vol] 80 10*3/uL Low 150-450 [facility] Comment on above: Performed By: #### L 300.3900, L300.4310, L500.4050, L503.6005, L100.0100, M200.1000 ####[facility] [address] [place], [address] RBC (Bld) [#/Vol] 3.95 10*6/uL Low 4.6-6.2 [facility] Comment on above: Performed By: #### L 300.3900, L300.4310, L500.4050, L503.6005, L100.0100, M200.1000 ####[facility] [address] [place], [address] RDW SD 53.5 fl High 35.1-43.9 [facility] Comment on above: Performed By: #### L 300.3900, L300.4310, L500.4050, L503.6005, L100.0100, M200.1000 ####[facility] [address] [place], [address] WBC (Bld) [#/Vol] 4.0 10*3/uL Low 4.4-11.0 [facility] Comment on above: Performed By: #### L 300.3900, L300.4310, L500.4050, L503.6005, L100.0100, M200.1000 ####[facility] [address] [place], [address] Absolute Neut Normal 2.0-7.7 [facility] Comment on above: Result Comment: Canc elled via OM: Order cancelled - Patient discharged Performed By: #### L 500.2500, L100.0100 ####[facility] [address] [place], [address] HCT Normal 40-54 [facility] Comment on above: Result Comment: Canc elled via OM: Order cancelled - Patient discharged Performed By: #### L 500.2500, L100.0100 ####[facility] [address] [place], [address] HGB Normal 13.0-16.5 [facility] Comment on above: Result Comment: Canc elled via OM: Order cancelled - Patient discharged Performed By: #### L 500.2500, L100.0100 ####[facility] [address] [place], [address] MCH Normal 27.0-32.0 [facility] Comment on above: Result Comment: Canc elled via OM: Order cancelled - Patient discharged Performed By: #### L 500.2500, L100.0100 ####[facility] [address] [place], [address] MCHC Normal 32-36 [facility] Comment on above: Result Comment: Canc elled via OM: Order cancelled - Patient discharged Performed By: #### L 500.2500, L100.0100 ####[facility] [address] [place], [address] MCV Normal 80-94 [facility] Comment on above: Result Comment: Canc elled via OM: Order cancelled - Patient discharged Performed By: #### L 500.2500, L100.0100 ####[facility] [address] [place], [address] NEUT% Normal 47-70 [facility] Comment on above: Result Comment: Canc elled via OM: Order cancelled - Patient discharged Performed By: #### L 500.2500, L100.0100 ####[facility] [address] [place], [address] PLT Normal 150-450 [facility] Comment on above: Result Comment: Canc elled via OM: Order cancelled - Patient discharged Performed By: #### L 500.2500, L100.0100 ####[facility] [address] [place], [address] RBC Normal 4.6-6.2 [facility] Comment on above: Result Comment: Canc elled via OM: Order cancelled - Patient discharged Performed By: #### L 500.2500, L100.0100 ####[facility] [address] [place], [address] RDW CV Normal 11.6-14.6 [facility] Comment on above: Result Comment: Canc elled via OM: Order cancelled - Patient discharged Performed By: #### L 500.2500, L100.0100 ####[facility] [address] [place], [address] RDW SD Normal 35.1-43.9 [facility] Comment on above: Result Comment: Canc elled via OM: Order cancelled - Patient discharged Performed By: #### L 500.2500, L100.0100 ####[facility] [address] [place], [address] WBC Normal 4.4-11.0 [facility] Comment on above: Result Comment: Canc elled via OM: Order cancelled - Patient discharged Performed By: #### L 500.2500, L100.0100 ####[facility] [address] [place], [address] Carbon dioxide, total [Moles /volume] in Central venous bloodOrdered By: Shayna Martinez on 10-13-2024 CO2 [Moles/Vol] 23.3 mmol/L 21.0-32.0 [facility] Chloride assayOrdered By: Sharad Martinez on 10-13-2024 Chloride [Moles/Vol] 107 mmol/L 98-108 [facility] Comprehensive Metabolic Prof ilon 10-13-2024 Albumin [Mass/Vol] 3.0 g/dL Low 3.4-4.8 [facility] Comment on above: Performed By: #### L 300.3900, L300.4310, L500.4050, L503.6005, L100.0100, M200.1000 ####[facility] [address] [place], [address] Albumin/Globulin [Mass ratio] 0.9 {ratio} Normal 0.9-2.4 [facility] Comment on above: Performed By: #### L 300.3900, L300.4310, L500.4050, L503.6005, L100.0100, M200.1000 ####[facility] [address] [place], [address] ALK PHOS 70 U/L Normal 40-129 [facility] Comment on above: Performed By: #### L 300.3900, L300.4310, L500.4050, L503.6005, L100.0100, M200.1000 ####[facility] [address] [place], [address] ALT [Catalytic activity/Vol] 16 U/L Normal <=46 [facility] Comment on above: Performed By: #### L 300.3900, L300.4310, L500.4050, L503.6005, L100.0100, M200.1000 ####[facility] [address] [place], [address] AST [Catalytic activity/Vol] 19 U/L Normal <=37 [facility] Comment on above: Performed By: #### L 300.3900, L300.4310, L500.4050, L503.6005, L100.0100, M200.1000 ####[facility] [address] [place], [address] Bilirubin [Mass/Vol] 0.44 mg/dL Normal 0.00-1.30 [facility] Comment on above: Performed By: #### L 300.3900, L300.4310, L500.4050, L503.6005, L100.0100, M200.1000 ####[facility] [address] [place], [address] BUN/CRE 28.2 RATIO High 10-20 [facility] Comment on above: Performed By: #### L 300.3900, L300.4310, L500.4050, L503.6005, L100.0100, M200.1000 ####[facility] [address] [place], [address] Calcium [Mass/Vol] 8.8 mg/dL Normal 7.6-11.0 [facility] Comment on above: Performed By: #### L 300.3900, L300.4310, L500.4050, L503.6005, L100.0100, M200.1000 ####[facility] [address] [place], [address] Chloride [Moles/Vol] 107 mmol/L Normal 98-108 [facility] Comment on above: Performed By: #### L 300.3900, L300.4310, L500.4050, L503.6005, L100.0100, M200.1000 ####[facility] [address] [place], [address] CO2 [Moles/Vol] 23.3 mmol/L Normal 21.0-32.0 [facility] Comment on above: Performed By: #### L 300.3900, L300.4310, L500.4050, L503.6005, L100.0100, M200.1000 ####[facility] [address] [place], [address] Creatinine [Mass/Vol] 0.93 mg/dL Normal 0.70-1.20 [facility] Comment on above: Performed By: #### L 300.3900, L300.4310, L500.4050, L503.6005, L100.0100, M200.1000 ####[facility] [address] [place], [address] ECRCL 102.20 ml/min Normal 50-250 [facility] Comment on above: Performed By: #### L 300.3900, L300.4310, L500.4050, L503.6005, L100.0100, M200.1000 ####[facility] [address] [place], [address] GAP 9 Normal 5-15 [facility] Comment on above: Performed By: #### L 300.3900, L300.4310, L500.4050, L503.6005, L100.0100, M200.1000 ####[facility] [address] [place], [address] GFR/1.73 sq M.predicted among non-blacks MDRD (S/P/Bld) [Vol rate/Area] 88 mL/min/{1.73_m2} Normal >60 [facility] Comment on above: Result Comment: mL/m in/1.73m2 CKD-EPI Creatinine Equation (2020) Performed By: #### L 300.3900, L300.4310, L500.4050, L503.6005, L100.0100, M200.1000 ####[facility] [address] [place], [address] Globulin (S) [Mass/Vol] 3.2 g/dL Normal 2.2-4.2 [facility] Comment on above: Performed By: #### L 300.3900, L300.4310, L500.4050, L503.6005, L100.0100, M200.1000 ####[facility] [address] [place], [address] Glucose [Mass/Vol] 122 mg/dL High 70-99 [facility] Comment on above: Performed By: #### L 300.3900, L300.4310, L500.4050, L503.6005, L100.0100, M200.1000 ####[facility] [address] [place], [address] Potassium [Moles/Vol] 4.3 mmol/L Normal 3.3-5.1 [facility] Comment on above: Performed By: #### L 300.3900, L300.4310, L500.4050, L503.6005, L100.0100, M200.1000 ####[facility] [address] [place], [address] Sodium [Moles/Vol] 138 mmol/L Normal 133-145 [facility] Comment on above: Performed By: #### L 300.3900, L300.4310, L500.4050, L503.6005, L100.0100, M200.1000 ####[facility] [address] [place], [address] T PROT 6.2 g/dL Normal 5.9-8.4 [facility] Comment on above: Performed By: #### L 300.3900, L300.4310, L500.4050, L503.6005, L100.0100, M200.1000 ####[facility] [address] [place], [address] Urea nitrogen [Mass/Vol] 26 mg/dL High 4-19 [facility] Comment on above: Performed By: #### L 300.3900, L300.4310, L500.4050, L503.6005, L100.0100, M200.1000 ####[facility] [address] [place], [address] Culture, Blood (WB)on 2024 CUB Normal [facility] Comment on above: Performed By: #### L 503.6005, M200.1000, L300.4310, L500.4050, L300.3900, L100.0100 ####[facility] [address] [place], [address] Echo Complete W/ Contraston 10-13-2024 Echo Complete W/ Contrast Normal [facility] Emergency Department Summary on 10-13-2024 Emergency Department Summary Normal [facility] Eosinophil percentageOrdered By: Shayna Martinez on 10-13-2024 Eosinophils/100 WBC (Bld) 2.5 % 0-5 [facility] Erythrocyte distribution wid th (RBC) [Ratio]Ordered By: Shayna Martinez on 10-13-2024 Erythrocyte distribution width (RBC) [Entitic vol] 53.5 fL High 35.1-43.9 [facility] Erythrocyte distribution wid th ratioOrdered By: Shayna Martinez on 10-13-2024 Erythrocyte distribution width (RBC) [Ratio] 16.7 % High 11.6-14.6 [facility] Estimation of creatinine jass aranceOrdered By: Shayna Martinez on 10-13-2024 Estimated Creatinine Clearance Calc 102.20 ml/min 50-250 [facility] GFR/1.73 sq M.predicted kayla g non-blacks MDRD (S/P/Bld) [Vol rate/Area]Ordered By: Shayna Martinez on 10-13-2024 Estimated GFR (MDRD) Non-Af Amer 88 >60 [facility] Comment on above: mL/min/1.73m2 CKD-EP I Creatinine Equation (2020) H AND P Exam - Hospitaliston 10-13-2024 H&P Exam - Hospitalist Normal [facility] Hematocrit Auto (Bld) [Volum e fraction]Ordered By: Shayna Martinez on 10-13-2024 Hematocrit (Bld) [Volume fraction] 34.3 % Low 40-54 [facility] Hemoglobin measurementOrdere d By: Shayna Martinez on 10-13-2024 Hemoglobin (Bld) [Mass/Vol] 10.7 g/dL Low 13.0-16.5 [facility] Immature granulocytes/100 WB C Auto (Bld)Ordered By: Shayna Martinez on 10-13-2024 Immature granulocytes/100 WBC (Bld) 1.500 % High 0.0-0.9 [facility] Comment on above: IG% - Immature Granu locytes (promyelocytes, myelocytes and metamyelocytes) > 1% indicates that a LEFT SHIFT is Present. International normalized rat io (INR) calculationOrdered By: Shayna Martinez on 10-13-2024 INR Coag (Bld) [Relative time] 1.3 {INR} [facility] Laboratory - Chemistry and C hemistry - challengeOrdered By: Shayna Martinez on 10-13-2024 AST [Catalytic activity/Vol] 19 U/L <38 [facility] Lactic Acidon 10-13-2024 Lactate [Moles/Vol] mmol/L Normal 0.0-2.0 [facility] Comment on above: Order Comment: Y Performed By: #### L 300.3900, L300.4310, L500.4050, L503.6005, L100.0100, M200.1000 ####[facility] [address] [place], [address] Lactic acid measurementOrder ed By: Shayna Martinez on 10-13-2024 Lactate [Moles/Vol] mmol/L 0.0-2.0 [facility] Lymphocytes Auto (Unsp spec) [#/Vol]Ordered By: Shayna Martinez on 10-13-2024 Lymphocytes (Bld) [#/Vol] 0.70 10*3/uL Low 0.83-4.51 [facility] Lymphocytes/100 WBC Auto (Un sp spec)Ordered By: Shayna Martinez on 10-13-2024 Lymphocytes/100 WBC (Bld) 17.7 % Low 19-41 [facility] MCV (mean corpuscular volume ) determinationOrdered By: Shayna Martinez on 10-13-2024 MCV (RBC) [Entitic vol] 86.8 fL 80-94 [facility] Mean corpuscular hemoglobin (MCH) determinationOrdered By: Shayna Martinez on 10-13-2024 MCH (RBC) [Entitic mass] 27.1 pg 27.0-32.0 [facility] Mean corpuscular hemoglobin concentration (MCHC) determinationOrdered By: Shayna Martinez on 10-13-2024 MCHC (RBC) [Mass/Vol] 31.2 g/dL Low 32-36 [facility] Monocyte percentageOrdered B y: Shayna Martinez on 10-13-2024 Monocytes/100 WBC (Bld) 22.0 % High 0-10 [facility] Neutrophil percentageOrdered By: Shayna Martinez on 10-13-2024 Neutrophils/100 WBC (Bld) 55.3 % 47-70 [facility] No Panel InformationOrdered By: Shayna Martinez on 10-13-2024 19 U/L <38 [facility] Nucleated red blood cell per centageOrdered By: Shayna Martinez on 10-13-2024 Nucleated RBC/100 WBC (Bld) [Ratio] 0 % 0-5 [facility] Partial Thromboplast Timeon 10-13-2024 aPTT Coag (Bld) [Time] 33.8 s Normal 24.1-36.2 [facility] Comment on above: Performed By: #### L 300.3900, L300.4310, L500.4050, L503.6005, L100.0100, M200.1000 ####[facility] [address] [place], [place], [address] Platelet countOrdered By: Sharad Martinez on 10-13-2024 Platelets (Bld) [#/Vol] 80 10*3/uL Low 150-450 [facility] Potassium (Unsp spec) [Mass/ Vol]Ordered By: Shayna Martinez on 10-13-2024 Potassium [Moles/Vol] 4.3 mmol/L 3.3-5.1 [facility] Prothrombin Time w/INRon INR Coag (PPP) [Relative time] 1.3 {INR} Normal [facility] Comment on above: Performed By: #### L 300.3900, L300.4310, L500.4050, L503.6005, L100.0100, M200.1000 ####[facility] [address] [place], [place], [id number] PT Coag (PPP) [Time] 16.0 s High 11.7-14.9 [facility] Comment on above: Performed By: #### L 300.3900, L300.4310, L500.4050, L503.6005, L100.0100, M200.1000 ####[facility] [address] [facility] [place], [place], [id number] Prothrombin timeOrdered By: Shayna Martinez on 10-13-2024 PT Coag (PPP) [Time] 16.0 s High 11.7-14.9 [facility] RBC Auto (Bld) [#/Vol]Ordere d By: Shayna Martinez on 10-13-2024 RBC (Bld) [#/Vol] 3.95 10*6/uL Low 4.6-6.2 [facility] Serum creatinine measurement (mass/volume)Ordered By: Shayna Martinez on 10-13-2024 Creatinine [Mass/Vol] 0.93 mg/dL 0.70-1.20 [facility] Serum globulin measurementOr dered By: Shayna Martinez on 10-13-2024 Globulin (S) [Mass/Vol] 3.2 g/dL 2.2-4.2 [facility] Serum glucose measurement (m ass/volume)Ordered By: Shayna Martinez on 10-13-2024 Glucose [Mass/Vol] 122 mg/dL High 70-99 [facility] Serum or plasma alanine matson otransferase (ALT) measurementOrdered By: Shayna Martinez on 10-13-2024 ALT [Catalytic activity/Vol] 16 U/L <47 [facility] Serum or plasma albumin isidro urement (mass/volume)Ordered By: Shayna Martinez on 10-13-2024 Albumin [Mass/Vol] 3.0 g/dL Low 3.4-4.8 [facility] Serum or plasma albumin/glob ulin mass ratioOrdered By: Shayna Martinez on 10-13-2024 Albumin/Globulin [Mass ratio] 0.9 {ratio} 0.9-2.4 [facility] Serum or plasma alkaline yumiko sphatase measurementOrdered By: Shayna Martinez on 10-13-2024 ALP [Catalytic activity/Vol] 70 U/L 40-129 [facility] Serum or plasma calcium isidro urement (mass/volume)Ordered By: Shayna Martinez on 10-13-2024 Calcium [Mass/Vol] 8.8 mg/dL 7.6-11.0 [facility] Serum or plasma urea nitroge n measurement (mass/volume)Ordered By: Shayna Martinez on 10-13-2024 Urea nitrogen [Mass/Vol] 26 mg/dL High 4-19 [facility] Sodium levelOrdered By: Broderick Martinez on 10-13-2024 Sodium [Moles/Vol] 138 mmol/L 133-145 [facility] Total proteinOrdered By: Jose Luis Martinez on 10-13-2024 Protein [Mass/Vol] 6.2 g/dL 5.9-8.4 [facility] White blood cell (WBC) count Ordered By: Shayna Martinez on 10-13-2024 WBC (Bld) [#/Vol] 4.0 10*3/uL Low 4.4-11.0 [facility] aPTT Coag (PPP) [Time]Ordere d By: Shayna Martinez on 10-13-2024 aPTT Coag (Bld) [Time] 33.8 s 24.1-36.2 [facility] Absolute lymphocyte countOrd ered By: Dl Neely on 10-12-2024 Lymphocytes Auto (Unsp spec) [#/Vol] 0.67 10*3/uL Low 0.83-4.51 [facility] Absolute neutrophil countOrd ered By: Dl Neely on 10-12-2024 Neutrophils (Bld) [#/Vol] 2.3 10*3/uL 2.0-7.7 [facility] Anion gap in Serum or Plasma Ordered By: Dl Neely on 10-12-2024 Anion gap [Moles/Vol] 7 mmol/L 5-15 [facility] Automated lymphocyte count a s percentage of total leukocytesOrdered By: Dl Neely on 10-12-2024 Lymphocytes/100 WBC Auto (Unsp spec) 18.1 % Low 19-41 [facility] BUN/creatinine ratioOrdered By: Dl Neely on 10-12-2024 Urea nitrogen/Creatinine [Mass ratio] 36.8 mg/mg High 10-20 [facility] Basic Metabolic Profile (BMP )on 10-12-2024 BUN/CRE 36.8 RATIO High 10-20 [facility] Comment on above: Performed By: #### L 501.5200, L501.2300, L100.0100, L500.2500 ####[facility] [address] [place], [address] Calcium [Mass/Vol] 8.2 mg/dL Normal 7.6-11.0 [facility] Comment on above: Performed By: #### L 501.5200, L501.2300, L100.0100, L500.2500 ####[facility] [address] [place], [address] Chloride [Moles/Vol] 112 mmol/L High 98-108 [facility] Comment on above: Performed By: #### L 501.5200, L501.2300, L100.0100, L500.2500 ####[facility] [address] [place], [address] CO2 [Moles/Vol] 21.7 mmol/L Normal 21.0-32.0 [facility] Comment on above: Performed By: #### L 501.5200, L501.2300, L100.0100, L500.2500 ####[facility] [address] [place], [address] Creatinine [Mass/Vol] 1.11 mg/dL Normal 0.70-1.20 [facility] Comment on above: Performed By: #### L 501.5200, L501.2300, L100.0100, L500.2500 ####[facility] [address] [place], [address] ECRCL 84.02 ml/min Normal 50-250 [facility] Comment on above: Performed By: #### L 501.5200, L501.2300, L100.0100, L500.2500 ####[facility] [address] [place], [address] GAP 7 Normal 5-15 [facility] Comment on above: Performed By: #### L 501.5200, L501.2300, L100.0100, L500.2500 ####[facility] [address] [place], [address] GFR/1.73 sq M.predicted among non-blacks MDRD (S/P/Bld) [Vol rate/Area] 72 mL/min/{1.73_m2} Normal >60 [facility] Comment on above: Result Comment: mL/m in/1.73m2 CKD-EPI Creatinine Equation (2020) Performed By: #### L 501.5200, L501.2300, L100.0100, L500.2500 ####[facility] [address] [place], [address] Glucose [Mass/Vol] 117 mg/dL High 70-99 [facility] Comment on above: Performed By: #### L 501.5200, L501.2300, L100.0100, L500.2500 ####[facility] [address] [place], [address] Potassium [Moles/Vol] 4.3 mmol/L Normal 3.3-5.1 [facility] Comment on above: Performed By: #### L 501.5200, L501.2300, L100.0100, L500.2500 ####[facility] [address] [place], [address] Sodium [Moles/Vol] 141 mmol/L Normal 133-145 [facility] Comment on above: Performed By: #### L 501.5200, L501.2300, L100.0100, L500.2500 ####[facility] [address] [place], [address] Urea nitrogen [Mass/Vol] 41 mg/dL High 4-19 [facility] Comment on above: Performed By: #### L 501.5200, L501.2300, L100.0100, L500.2500 ####[facility] [address] [place], [address] Basophil percentageOrdered B y: Dl Neely on 10-12-2024 Basophils/100 WBC (Bld) 0.3 % 0-1 [facility] Bedside Glucoseon 10-12-2024 FINGERSTICK GLU 146 mg/dL High 74-106 [facility] Comment on above: Result Comment: PETER GEMENT OF PATIENT CARE PER NURSING PROTOCOL Performed By: #### L 501.080 ####[facility] [address] [place], [address] FINGERSTICK GLU 114 mg/dL High 74-106 [facility] Comment on above: Result Comment: PETER GEMENT OF PATIENT CARE PER NURSING PROTOCOL Performed By: #### L 501.080 ####[facility] [address] [place], [address] CBC W/Diff, Automatedon 04-0 MPV TNP Normal 6.2-12.0 [facility] Comment on above: Performed By: #### L 501.5200, L501.2300, L100.0100, L500.2500 ####[facility] [address] [place], [address] Absolute Lymph 0.67 X10 3/uL Low 0.83-4.51 [facility] Comment on above: Performed By: #### L 501.5200, L501.2300, L100.0100, L500.2500 ####[facility] [address] [place], [address] Absolute Neut 2.3 X10 3/uL Normal 2.0-7.7 [facility] Comment on above: Performed By: #### L 501.5200, L501.2300, L100.0100, L500.2500 ####[facility] [address] [place], [address] Basophils/100 WBC (Bld) 0.3 % Normal 0-1 [facility] Comment on above: Performed By: #### L 501.5200, L501.2300, L100.0100, L500.2500 ####[facility] [address] [place], [address] Eosinophils/100 WBC (Bld) 1.3 % Normal 0-5 [facility] Comment on above: Performed By: #### L 501.5200, L501.2300, L100.0100, L500.2500 ####[facility] [address] [place], [address] Erythrocyte distribution width (RBC) [Ratio] 17.1 % High 11.6-14.6 [facility] Comment on above: Performed By: #### L 501.5200, L501.2300, L100.0100, L500.2500 ####[facility] [address] [place], [address] Hematocrit (Bld) [Volume fraction] 29.3 % Low 40-54 [facility] Comment on above: Performed By: #### L 501.5200, L501.2300, L100.0100, L500.2500 ####[facility] [address] [place], [address] Hemoglobin (Bld) [Mass/Vol] 9.3 g/dL Low 13.0-16.5 [facility] Comment on above: Performed By: #### L 501.5200, L501.2300, L100.0100, L500.2500 ####[facility] [address] [place], [address] IG% 0.500 Normal 0.0-0.9 [facility] Comment on above: Result Comment: IG% - Immature Granulocytes (promyelocytes, myelocytes andmetamyelocytes) > 1% indicates that a LEFT SHIFT is Present. Performed By: #### L 501.5200, L501.2300, L100.0100, L500.2500 ####[facility] [address] [place], [address] Lymphocytes/100 WBC (Bld) 18.1 % Low 19-41 [facility] Comment on above: Performed By: #### L 501.5200, L501.2300, L100.0100, L500.2500 ####[facility] [address] [place], [address] MCH (RBC) [Entitic mass] 27.4 pg Normal 27.0-32.0 [facility] Comment on above: Performed By: #### L 501.5200, L501.2300, L100.0100, L500.2500 ####[facility] [address] [place], [address] MCHC (RBC) [Mass/Vol] 31.7 g/dL Low 32-36 [facility] Comment on above: Performed By: #### L 501.5200, L501.2300, L100.0100, L500.2500 ####[facility] [address] [place], [address] MCV (RBC) [Entitic vol] 86.4 fL Normal 80-94 [facility] Comment on above: Performed By: #### L 501.5200, L501.2300, L100.0100, L500.2500 ####[facility] [address] [place], [address] Monocytes/100 WBC (Bld) 19.1 % High 0-10 [facility] Comment on above: Performed By: #### L 501.5200, L501.2300, L100.0100, L500.2500 ####[facility] [address] [place], [address] Neutrophils/100 WBC (Bld) 60.7 % Normal 47-70 [facility] Comment on above: Performed By: #### L 501.5200, L501.2300, L100.0100, L500.2500 ####[facility] [address] [place], [address] Nucleated RBC (Bld) [#/Vol] 0 10*3/uL Normal 0-5 [facility] Comment on above: Performed By: #### L 501.5200, L501.2300, L100.0100, L500.2500 ####[facility] [address] [place], [address] Platelets (Bld) [#/Vol] 56 10*3/uL Low 150-450 [facility] Comment on above: Performed By: #### L 501.5200, L501.2300, L100.0100, L500.2500 ####[facility] [address] [place], [address] RBC (Bld) [#/Vol] 3.39 10*6/uL Low 4.6-6.2 [facility] Comment on above: Performed By: #### L 501.5200, L501.2300, L100.0100, L500.2500 ####[facility] [address] [place], [address] RDW SD 54.2 fl High 35.1-43.9 [facility] Comment on above: Performed By: #### L 501.5200, L501.2300, L100.0100, L500.2500 ####[facility] [address] [place], [address] WBC (Bld) [#/Vol] 3.7 10*3/uL Low 4.4-11.0 [facility] Comment on above: Performed By: #### L 501.5200, L501.2300, L100.0100, L500.2500 ####[facility] [address] [place], [address] Carbon dioxide, total [Moles /volume] in Central venous bloodOrdered By: Dl Neely on 10-12-2024 CO2 [Moles/Vol] 21.7 mmol/L 21.0-32.0 [facility] Chloride assayOrdered By: Sharad Neely on 10-12-2024 Chloride [Moles/Vol] 112 mmol/L High 98-108 [facility] Eosinophil percentageOrdered By: Dl Neely on 10-12-2024 Eosinophils/100 WBC (Bld) 1.3 % 0-5 [facility] Erythrocyte distribution wid th (RBC) [Ratio]Ordered By: Dl Neely on 10-12-2024 Erythrocyte distribution width (RBC) [Entitic vol] 54.2 fL High 35.1-43.9 [facility] Erythrocyte distribution wid th ratioOrdered By: Dl Neely on 10-12-2024 Erythrocyte distribution width (RBC) [Ratio] 17.1 % High 11.6-14.6 [facility] Erythrocyte distribution wid th standard deviationOrdered By: Dl Neely on 10-12-2024 Erythrocyte distribution width (RBC) [Ratio] 54.2 fl High 35.1-43.9 [facility] Estimation of creatinine jass aranceOrdered By: Dl Neely on 10-12-2024 Estimated Creatinine Clearance Calc 84.02 ml/min 50-250 [facility] GFR/1.73 sq M.predicted kayla g non-blacks MDRD (S/P/Bld) [Vol rate/Area]Ordered By: Dl Neely on 10-12-2024 Estimated GFR (MDRD) Non-Af Amer 72 >60 [facility] Comment on above: mL/min/1.73m2 CKD-EP I Creatinine Equation (2020) Glomerular filtration rate ( GFR) estimation/1.73 sq m using serum, plasma, or whole bOrdered By: Dl Neely on 10-12-2024 GFR/1.73 sq M.predicted among non-blacks MDRD (S/P/Bld) [Vol rate/Area] 72 mL/min/{1.73_m2} >60 [facility] Comment on above: mL/min/1.73m2 CKD-EP I Creatinine Equation (2020) [facility] deOrdered By: Dl Neely on 10-12-2024 Bedside Glucose (Misc Panel) 146 mg/dL High 74-106 [facility] Comment on above: MANAGEMENT OF PATIEN T CARE PER NURSING PROTOCOL Glucose [Mass/Vol] 146 mg/dL High 74-106 [facility] Comment on above: MANAGEMENT OF PATIEN T CARE PER NURSING PROTOCOL Hematocrit Auto (Bld) [Volum e fraction]Ordered By: Dl Neely on 10-12-2024 Hematocrit (Bld) [Volume fraction] 29.3 % Low 40-54 [facility] Hemoglobin measurementOrdere d By: Dl Neely on 10-12-2024 Hemoglobin (Bld) [Mass/Vol] 9.3 g/dL Low 13.0-16.5 [facility] Immature granulocytes/100 WB C Auto (Bld)Ordered By: Dl Neely on 10-12-2024 Immature granulocytes/100 WBC (Bld) 0.500 % 0.0-0.9 [facility] Comment on above: IG% - Immature Granu locytes (promyelocytes, myelocytes and metamyelocytes) > 1% indicates that a LEFT SHIFT is Present. Lymphocytes Auto (Unsp spec) [#/Vol]Ordered By: Dl Neely on 10-12-2024 Lymphocytes (Bld) [#/Vol] 0.67 10*3/uL Low 0.83-4.51 [facility] Lymphocytes/100 WBC Auto (Un sp spec)Ordered By: Dl Neely on 10-12-2024 Lymphocytes/100 WBC (Bld) 18.1 % Low 19-41 [facility] MCV (mean corpuscular volume ) determinationOrdered By: Dl Neely on 10-12-2024 MCV (RBC) [Entitic vol] 86.4 fL 80-94 [facility] Magnesiumon 10-12-2024 Magnesium [Mass/Vol] 2.4 mg/dL High 1.5-2.2 [facility] Comment on above: Performed By: #### L 501.5200, L501.2300, L100.0100, L500.2500 ####[facility] [address] [place], [address] Magnesium (Unsp spec) [Mass/ Vol]Ordered By: Dl Neely on 10-12-2024 Magnesium [Mass/Vol] 2.4 mg/dL High 1.5-2.2 [facility] Magnesium measurement (mass/ volume)Ordered By: Dl Neely on 10-12-2024 Magnesium (Unsp spec) [Mass/Vol] 2.4 mg/dL High 1.5-2.2 [facility] Mean corpuscular hemoglobin (MCH) determinationOrdered By: Dl Neely on 10-12-2024 MCH (RBC) [Entitic mass] 27.4 pg 27.0-32.0 [facility] Mean corpuscular hemoglobin concentration (MCHC) determinationOrdered By: Dl Neely on 10-12-2024 MCHC (RBC) [Mass/Vol] 31.7 g/dL Low 32-36 [facility] Mean platelet volume determi nationOrdered By: Dl Neely on 10-12-2024 Mean Platelet Volume [facility] Comment on above: Test not performed Mean platelet volume determination [facility] Comment on above: Test not performed Monocyte percentageOrdered B y: Dl Neely on 10-12-2024 Monocytes/100 WBC (Bld) 19.1 % High 0-10 [facility] Neutrophil percentageOrdered By: Dl Neely on 10-12-2024 Neutrophils/100 WBC (Bld) 60.7 % 47-70 [facility] Nucleated red blood cell per centageOrdered By: Dl Neely on 10-12-2024 Nucleated RBC/100 WBC (Bld) [Ratio] 0 % 0-5 [facility] Phosphoruson 10-12-2024 Phosphate [Mass/Vol] 3.0 mg/dL Normal 2.7-4.5 [facility] Comment on above: Performed By: #### L 501.5200, L501.2300, L100.0100, L500.2500 ####[facility] [address] [place], [place], [id number] Platelet countOrdered By: Sharad Neely on 10-12-2024 Platelets (Bld) [#/Vol] 56 10*3/uL Low 150-450 [facility] Potassium (Unsp spec) [Mass/ Vol]Ordered By: Dl Neely on 10-12-2024 Potassium [Moles/Vol] 4.3 mmol/L 3.3-5.1 [facility] Potassium measurement (mass/ volume)Ordered By: Dl Neely on 10-12-2024 Potassium (Unsp spec) [Mass/Vol] 4.3 mmol/L 3.3-5.1 [facility] RBC Auto (Bld) [#/Vol]Ordere d By: Dl Neely on 10-12-2024 RBC (Bld) [#/Vol] 3.39 10*6/uL Low 4.6-6.2 [facility] Serum creatinine measurement (mass/volume)Ordered By: Dl Neely on 10-12-2024 Creatinine [Mass/Vol] 1.11 mg/dL 0.70-1.20 [facility] Serum glucose measurement (m ass/volume)Ordered By: Dl Neely on 10-12-2024 Glucose [Mass/Vol] 117 mg/dL High 70-99 [facility] Serum or plasma calcium isidro urement (mass/volume)Ordered By: Dl Neely on 10-12-2024 Calcium [Mass/Vol] 8.2 mg/dL 7.6-11.0 [facility] Serum or plasma urea nitroge n measurement (mass/volume)Ordered By: Dl Neely on 10-12-2024 Urea nitrogen [Mass/Vol] 41 mg/dL High 4-19 [facility] Serum phosphorus measurement Ordered By: Dl Neely on 10-12-2024 Phosphorus Level 3.0 mg/dL 2.7-4.5 [facility] Sodium levelOrdered By: Khalif Neely on 10-12-2024 Sodium [Moles/Vol] 141 mmol/L 133-145 [facility] Urine Cultureon 10-12-2024 URC Normal [facility] Comment on above: Performed By: #### M 100.2200, M100.678, L400.0001 ####[facility] [address] [place], [address] White blood cell (WBC) count Ordered By: Dl Neely on 10-12-2024 WBC (Bld) [#/Vol] 3.7 10*3/uL Low 4.4-11.0 [facility] Basic Metabolic Profile (BMP )on 10-11-2024 BUN/CRE 38.4 RATIO High 10-20 [facility] Comment on above: Performed By: #### L 100.0100, L500.2500 ####[facility] [address] [place], [address] Calcium [Mass/Vol] 8.2 mg/dL Normal 7.6-11.0 [facility] Comment on above: Performed By: #### L 100.0100, L500.2500 ####[facility] [address] [place], [address] Chloride [Moles/Vol] 109 mmol/L High 98-108 [facility] Comment on above: Performed By: #### L 100.0100, L500.2500 ####[facility] [address] [place], [address] CO2 [Moles/Vol] 19.2 mmol/L Low 21.0-32.0 [facility] Comment on above: Performed By: #### L 100.0100, L500.2500 ####[facility] [address] [place], [address] Creatinine [Mass/Vol] 1.59 mg/dL High 0.70-1.20 [facility] Comment on above: Performed By: #### L 100.0100, L500.2500 ####[facility] [address] [place], [address] ECRCL 58.66 ml/min Normal 50-250 [facility] Comment on above: Performed By: #### L 100.0100, L500.2500 ####[facility] [address] [place], [address] GAP 10 Normal 5-15 [facility] Comment on above: Performed By: #### L 100.0100, L500.2500 ####[facility] [address] [place], [address] GFR/1.73 sq M.predicted among non-blacks MDRD (S/P/Bld) [Vol rate/Area] 47 mL/min/{1.73_m2} Low >60 [facility] Comment on above: Result Comment: mL/m in/1.73m2 CKD-EPI Creatinine Equation (2020) Performed By: #### L 100.0100, L500.2500 ####[facility] [address] [place], [address] Glucose [Mass/Vol] 158 mg/dL High 70-99 [facility] Comment on above: Performed By: #### L 100.0100, L500.2500 ####[facility] [address] [place], [address] Potassium [Moles/Vol] 4.4 mmol/L Normal 3.3-5.1 [facility] Comment on above: Performed By: #### L 100.0100, L500.2500 ####[facility] [address] [place], [address] Sodium [Moles/Vol] 139 mmol/L Normal 133-145 [facility] Comment on above: Performed By: #### L 100.0100, L500.2500 ####[facility] [address] [place], [address] Urea nitrogen [Mass/Vol] 61 mg/dL High 4-19 [facility] Comment on above: Performed By: #### L 100.0100, L500.2500 ####[facility] [address] [place], [address] Bedside Glucoseon 10-11-2024 FINGERSTICK GLU 166 mg/dL High 74-106 [facility] Comment on above: Result Comment: PETER GEMENT OF PATIENT CARE PER NURSING PROTOCOL Performed By: #### L 501.080 ####[facility] [address] [place], [address] FINGERSTICK GLU 176 mg/dL High 74-106 [facility] Comment on above: Result Comment: PETER GEMENT OF PATIENT CARE PER NURSING PROTOCOL Performed By: #### L 501.080 ####[facility] [address] [place], [address] FINGERSTICK GLU 162 mg/dL High 74-106 [facility] Comment on above: Result Comment: PETER GEMENT OF PATIENT CARE PER NURSING PROTOCOL Performed By: #### L 501.080 ####[facility] [address] [place], [address] FINGERSTICK GLU 146 mg/dL High 74-106 [facility] Comment on above: Result Comment: PETER GEMENT OF PATIENT CARE PER NURSING PROTOCOL Performed By: #### L 501.080 ####[facility] [address] [place], [address] CBC W/Diff, Automatedon 04-0 PLT EST MOD DEC Normal ADEQ [facility] Comment on above: Performed By: #### L 100.0100, L500.2500 ####[facility] [address] [place], [address] PLT MORPH LARGE Normal [facility] Comment on above: Performed By: #### L 100.0100, L500.2500 ####[facility] [address] [place], [address] Electrocardiogram reportOrde red By: Amarjit Soliman on 10-11-2024 EKG study [facility] [address] [address] 12 Lead EKG 10/10/24 1640 MR#: [id number] Acct: [id number] Name: JADON ALVAREZ Rep #:[id number] : 1955 69 From: Amarjit pedraza MD Attending Dr: Dr. Dl Neely MD Status: ADM IN Ordering Dr: Kurtis Monteiro MD Date: Location: [facility] Sex: M C Admitted: 10/10/24 Test Reason [...] ischemia Abnormal ECG Confirmed by Amarjit Soliman ([id number]), acquisition editor JOE ABREU ([id number]) on 10/11/2024 7:50:58 AM Referred By: EUNICE Confirmed By: Amarjit Soilman 10/11/24 0751 Date _ Amarjit Soliman MD CC: Dr. Kurtis Monteiro MD; Dr. Dl Neely MD; Kathleen Herzog MD ~ Signed [facility] Other Phone: Platelet estimateOrdered By: Monika Garcias on 10-11-2024 Platelets LM Ql (Bld) MOD DEC ADEQ [facility] Platelet morphologyOrdered B y: Monika Garcias on 10-11-2024 Platelet morphology finding Nom (Bld) LARGE [facility] Platelet morphology finding Nom (Bld)Ordered By: Monika Garcias on 10-11-2024 Platelet Morphology Comment LARGE [facility] Platelets LM Ql (Bld)Ordered By: Monika Garcias on 10-11-2024 Platelet Estimate MOD DEC ADEQ [facility] 12 Lead EKGon 10-10-2024 12 Lead EKG Normal [facility] Abdomen/Pelvis without Conto n 10-10-2024 Abdomen/Pelvis without Cont Normal [facility] Absolute neutrophil countOrd ered By: Kurtis Monteiro on 10-10-2024 Neutrophils (Bld) [#/Vol] 3.3 10*3/uL 2.0-7.7 [facility] Activated partial thrombopla stin time (aPTT) in platelet poor plasma by coagulation aOrdered By: Kurtis Monteiro on 10-10-2024 aPTT Coag (PPP) [Time] 35.3 s 24.1-36.2 [facility] Anion gap in Serum or Plasma Ordered By: Kurtis Monteiro on 10-10-2024 Anion gap [Moles/Vol] 14 mmol/L 5-15 [facility] BUN/creatinine ratioOrdered By: Kurtis Monteiro on 10-10-2024 Urea nitrogen/Creatinine [Mass ratio] 33.3 mg/mg High 10-20 [facility] Basophil percentageOrdered B y: Kurtis Monteiro on 10-10-2024 Basophils/100 WBC (Bld) 2.1 % High 0-1 [facility] Bedside Glucoseon 10-10-2024 FINGERSTICK GLU 181 mg/dL High 74-106 [facility] Comment on above: Result Comment: PETER HINSON OF PATIENT CARE PER NURSING PROTOCOL Performed By: #### L 501.080 ####[facility] [address] [place], [address] FINGERSTICK GLU 161 mg/dL High 74-106 [facility] Comment on above: Result Comment: PETER GEMENT OF PATIENT CARE PER NURSING PROTOCOL Performed By: #### L 501.080 ####[facility] [address] [place], [address] Bilirubin Test strip Ql (U)O rdered By: Kurtis Monteiro on 10-10-2024 Bilirubin Ql (U) Negative Negative [facility] Bilirubin, totalOrdered By: Kurtis Monteiro on 10-10-2024 Bilirubin [Mass/Vol] 0.61 mg/dL 0.00-1.30 [facility] Blood cultureOrdered By: Charity Garcias on 10-10-2024 Bacteria identified Cx Nom (Bld) Staphylococcus aureus Abnormal [facility] Bacteria identified Cx Nom (Bld) Meth. resistant Staph. aureus Abnormal [facility] Blood cultureOrdered By: Mary oMnteiro on 10-10-2024 Bacteria identified Cx Nom (Bld) Negative Abnormal [facility] Bacteria identified Cx Nom (Bld) Proteus mirabilis Abnormal [facility] Blood manual differential co mment interpretation (narrative result)Ordered By: Kurtis Monteiro on 10-10-2024 Manual differential comment Kenny (Bld) [Interp] SCANNED [facility] Comment on above: LYMPHOPENIA NOTEDTHR OMBOCYTOPENIA NOTED CBC W/Diff, Automatedon - SMEAR COMMENT SCANNED Normal [facility] Comment on above: Result Comment: LYMP HOPENIA NOTEDTHROMBOCYTOPENIA NOTED Performed By: #### L 503.6005, M200.1000, L300.4310, L500.4050, L300.3900, L100.0100 ####[facility] [address] [place], [place], [address] Carbon dioxide, total [Moles /volume] in Central venous bloodOrdered By: Kurtis Monteiro on 10-10-2024 CO2 [Moles/Vol] 20.3 mmol/L Low 21.0-32.0 [facility] Chest 1 View (Portable)on Chest 1 View (Portable) Normal [facility] Chloride assayOrdered By: Vinicius Monteiro on 10-10-2024 Chloride [Moles/Vol] 104 mmol/L 98-108 [facility] Comprehensive Metabolic Prof ilon 10-10-2024 Albumin [Mass/Vol] 3.1 g/dL Low 3.4-4.8 [facility] Comment on above: Performed By: #### L 503.6005, M200.1000, L300.4310, L500.4050, L300.3900, L100.0100 ####[facility] [address] [place], [address] Albumin/Globulin [Mass ratio] 0.9 {ratio} Normal 0.9-2.4 [facility] Comment on above: Performed By: #### L 503.6005, M200.1000, L300.4310, L500.4050, L300.3900, L100.0100 ####[facility] [address] [place], [address] ALK PHOS 105 U/L Normal 40-129 [facility] Comment on above: Performed By: #### L 503.6005, M200.1000, L300.4310, L500.4050, L300.3900, L100.0100 ####[facility] [address] [place], [address] ALT [Catalytic activity/Vol] 33 U/L Normal <=46 [facility] Comment on above: Performed By: #### L 503.6005, M200.1000, L300.4310, L500.4050, L300.3900, L100.0100 ####[facility] [address] [place], [address] AST [Catalytic activity/Vol] 53 U/L High <=37 [facility] Comment on above: Performed By: #### L 503.6005, M200.1000, L300.4310, L500.4050, L300.3900, L100.0100 ####[facility] [address] [place], [address] Bilirubin [Mass/Vol] 0.61 mg/dL Normal 0.00-1.30 [facility] Comment on above: Performed By: #### L 503.6005, M200.1000, L300.4310, L500.4050, L300.3900, L100.0100 ####[facility] [address] [place], [address] BUN/CRE 33.3 RATIO High 10-20 [facility] Comment on above: Performed By: #### L 503.6005, M200.1000, L300.4310, L500.4050, L300.3900, L100.0100 ####[facility] [address] [place], [address] Calcium [Mass/Vol] 9.0 mg/dL Normal 7.6-11.0 [facility] Comment on above: Performed By: #### L 503.6005, M200.1000, L300.4310, L500.4050, L300.3900, L100.0100 ####[facility] [address] [place], [address] Chloride [Moles/Vol] 104 mmol/L Normal 98-108 [facility] Comment on above: Performed By: #### L 503.6005, M200.1000, L300.4310, L500.4050, L300.3900, L100.0100 ####[facility] [address] [place], [address] CO2 [Moles/Vol] 20.3 mmol/L Low 21.0-32.0 [facility] Comment on above: Performed By: #### L 503.6005, M200.1000, L300.4310, L500.4050, L300.3900, L100.0100 ####[facility] [address] [place], [address] Creatinine [Mass/Vol] 2.06 mg/dL High 0.70-1.20 [facility] Comment on above: Performed By: #### L 503.6005, M200.1000, L300.4310, L500.4050, L300.3900, L100.0100 ####[facility] [address] [place], [address] ECRCL 45.27 ml/min Low 50-250 [facility] Comment on above: Performed By: #### L 503.6005, M200.1000, L300.4310, L500.4050, L300.3900, L100.0100 ####[facility] [address] [place], [address] GAP 14 Normal 5-15 [facility] Comment on above: Performed By: #### L 503.6005, M200.1000, L300.4310, L500.4050, L300.3900, L100.0100 ####[facility] [address] [place], [address] GFR/1.73 sq M.predicted among non-blacks MDRD (S/P/Bld) [Vol rate/Area] 34 mL/min/{1.73_m2} Low >60 [facility] Comment on above: Result Comment: mL/m in/1.73m2 CKD-EPI Creatinine Equation (2020) Performed By: #### L 503.6005, M200.1000, L300.4310, L500.4050, L300.3900, L100.0100 ####[facility] [address] [place], [address] Globulin (S) [Mass/Vol] 3.5 g/dL Normal 2.2-4.2 [facility] Comment on above: Performed By: #### L 503.6005, M200.1000, L300.4310, L500.4050, L300.3900, L100.0100 ####[facility] [address] [place], [address] Glucose [Mass/Vol] 178 mg/dL High 70-99 [facility] Comment on above: Performed By: #### L 503.6005, M200.1000, L300.4310, L500.4050, L300.3900, L100.0100 ####[facility] [address] [place], [address] Potassium [Moles/Vol] 4.5 mmol/L Normal 3.3-5.1 [facility] Comment on above: Performed By: #### L 503.6005, M200.1000, L300.4310, L500.4050, L300.3900, L100.0100 ####[facility] [address] [place], [address] Sodium [Moles/Vol] 138 mmol/L Normal 133-145 [facility] Comment on above: Performed By: #### L 503.6005, M200.1000, L300.4310, L500.4050, L300.3900, L100.0100 ####[facility] [address] [place], [address] T PROT 6.6 g/dL Normal 5.9-8.4 [facility] Comment on above: Performed By: #### L 503.6005, M200.1000, L300.4310, L500.4050, L300.3900, L100.0100 ####[facility] [address] [place], [address] Urea nitrogen [Mass/Vol] 69 mg/dL High 4-19 [facility] Comment on above: Performed By: #### L 503.6005, M200.1000, L300.4310, L500.4050, L300.3900, L100.0100 ####[facility] [address] [place], [address] Emergency Department Summary on 10-10-2024 Emergency Department Summary Normal [facility] Eosinophil percentageOrdered By: Kurtis Monteiro on 10-10-2024 Eosinophils/100 WBC (Bld) 0.0 % 0-5 [facility] Epithelial cells.squamous LM Ql (Urine sed)Ordered By: Kurtis Monteiro on 10-10-2024 Epithelial cells.squamous LM.HPF (Urine sed) [#/Area] 0 /[HPF] 0-5 [facility] Erythrocyte distribution wid th ratioOrdered By: Kurtis Monteiro on 10-10-2024 Erythrocyte distribution width (RBC) [Ratio] 16.7 % High 11.6-14.6 [facility] Erythrocyte distribution wid th standard deviationOrdered By: Kurtis Monteiro on 10-10-2024 Erythrocyte distribution width (RBC) [Entitic vol] 51.7 fL High 35.1-43.9 [facility] Estimation of creatinine jass aranceOrdered By: Kurtis Monteiro on 10-10-2024 Estimated Creatinine Clearance Calc 45.27 ml/min Low 50-250 [facility] GFR/1.73 sq M.predicted kayla g non-blacks MDRD (S/P/Bld) [Vol rate/Area]Ordered By: Kurtis Monteiro on 10-10-2024 Estimated GFR (MDRD) Non-Af Amer 34 Low >60 [facility] Comment on above: mL/min/1.73m2 CKD-EP I Creatinine Equation (2020) Glucose Ql (U)Ordered By: Vinicius Monteiro on 10-10-2024 Urine Glucose (UA) Normal mg/dl Normal [facility] H AND P Exam - Hospitaliston 10-10-2024 H&P Exam - Hospitalist Normal [facility] Hematocrit Auto (Bld) [Volum e fraction]Ordered By: Kurtis Monteiro on 10-10-2024 Hematocrit (Bld) [Volume fraction] 35.8 % Low 40-54 [facility] Hemoglobin measurementOrdere d By: Kurtis Monteiro on 10-10-2024 Hemoglobin (Bld) [Mass/Vol] 11.7 g/dL Low 13.0-16.5 [facility] Immature granulocytes/100 WB C Auto (Bld)Ordered By: Kurtis Monteiro on 10-10-2024 Immature granulocytes/100 WBC (Bld) 0.300 % 0.0-0.9 [facility] Comment on above: IG% - Immature Granu locytes (promyelocytes, myelocytes and metamyelocytes) > 1% indicates that a LEFT SHIFT is Present. Influenza virus A and B and SARS-CoV-2 (COVID-19) and Respiratory syncytial virus RNAOrdered By: Kurtis Monteiro on 10-10-2024 SARS-CoV-2 (COVID-19) RNA SUMAN+probe Ql (Unsp spec) [facility] International normalized rat io (INR) calculationOrdered By: Kurtis Monteiro on 10-10-2024 INR Coag (Bld) [Relative time] 1.6 {INR} [facility] Ketones Test strip Ql (U)Ord ered By: Kurtis Monteiro on 10-10-2024 Ketones Ql (U) Negative Negative [facility] Laboratory - Chemistry and C hemistry - challengeOrdered By: Kurtis Monteiro on 10-10-2024 AST [Catalytic activity/Vol] 53 U/L High <38 [facility] Lactic Acidon 10-10-2024 Lactate [Moles/Vol] mmol/L Normal 0.0-2.0 [facility] Comment on above: Performed By: #### L 503.6005 ####[facility] [address] [facility] [place], [place], [id number] Lactate [Moles/Vol] 3.7 mmol/L Invalid Interpretation Code 0.0-2.0 [facility] Comment on above: Order Comment: Y Result Comment: Crit ical Result(s) Called at: 1649 by: BAYRON MONTES??Results read back by same. Performed By: #### L 503.6005, M200.1000, L300.4310, L500.4050, L300.3900, L100.0100 ####[facility] [address], [address] Lactic acid measurementOrder ed By: Kurtis Monteiro on 10-10-2024 Lactate [Moles/Vol] mmol/L 0.0-2.0 [facility] Lactate [Moles/Vol] 3.7 mmol/L High 0.0-2.0 [facility] Comment on above: Critical Result(s) C alled at: 1649 by: BAYRON PABON Results read back by same. Lymphocytes Auto (Unsp spec) [#/Vol]Ordered By: Kurtis Monteiro on 10-10-2024 Lymphocytes (Bld) [#/Vol] 0.25 10*3/uL Low 0.83-4.51 [facility] Lymphocytes/100 WBC Auto (Un sp spec)Ordered By: Kurtis Monteiro on 10-10-2024 Lymphocytes/100 WBC (Bld) 6.7 % Low 19-41 [facility] M100.678on 10-10-2024 M100.678 Pending SARS-CoV-2 (COVID 19) Negative INFLUENZA A Negative INFLUENZA B Negative RSV PCR Negative Normal [facility] Comment on above: Performed By: #### M 100.2200, M100.678, L400.0001 ####[facility] [address] [place], [address] MCV (mean corpuscular volume ) determinationOrdered By: Kurtis Monteiro on 10-10-2024 MCV (RBC) [Entitic vol] 85.2 fL 80-94 [facility] Manual differential comment Kenny (Bld) [Interp]Ordered By: Kurtis Monteiro on 10-10-2024 Differential Comment SCANNED [facility] Comment on above: LYMPHOPENIA NOTEDTHR OMBOCYTOPENIA NOTED Mean corpuscular hemoglobin (MCH) determinationOrdered By: Kurtis Monteiro on 10-10-2024 MCH (RBC) [Entitic mass] 27.9 pg 27.0-32.0 [facility] Mean corpuscular hemoglobin concentration (MCHC) determinationOrdered By: Kurtis Monteiro on 10-10-2024 MCHC (RBC) [Mass/Vol] 32.7 g/dL 32-36 [facility] Mean platelet volume determi nationOrdered By: Kurtis Monteiro on 10-10-2024 Mean Platelet Volume TNP [facility] Comment on above: Test not performed Microorganism identified Cx Nom (Unsp spec)Ordered By: Monika Garcias on 10-10-2024 Bacteria Detection (PCR) Meth. resistant Staph. aureus Abnormal [facility] Microscopic analysis of urin e for red blood cells (RBC)Ordered By: Kurtis Monteiro on 10-10-2024 Microscopic analysis of urine for red blood cells (RBC) > 100 SEEN /hpf 0-5 [facility] Urine RBC > 100 SEEN /hpf 0-5 [facility] Monocyte percentageOrdered B y: Kurtis Monteiro on 10-10-2024 Monocytes/100 WBC (Bld) 3.2 % 0-10 [facility] Mucus LM Ql (Urine sed)Order ed By: Kurtis Monteiro on 10-10-2024 Mucus Ql (Urine sed) 0 SEEN /hpf [facility] Neutrophil percentageOrdered By: Kurtis Monteiro on 10-10-2024 Neutrophils/100 WBC (Bld) 87.7 % High 47-70 [facility] Nitrite Test strip Ql (U)Ord ered By: Kurtis Monteiro on 10-10-2024 Nitrite Ql (U) Negative Negative [facility] No Panel InformationOrdered By: Kurtis Monteiro on 10-10-2024 53 U/L High <38 [facility] Nucleated red blood cell per centageOrdered By: Kurtis Monteiro on 10-10-2024 Nucleated RBC/100 WBC (Bld) [Ratio] 0 % 0-5 [facility] Organism identificationOrder ed By: Monika Garcias on 10-10-2024 Microorganism identified Cx Nom (Unsp spec) Meth. resistant Staph. aureus Abnormal [facility] Partial Thromboplast Timeon 10-10-2024 aPTT Coag (Bld) [Time] 35.3 s Normal 24.1-36.2 [facility] Comment on above: Performed By: #### L 503.6005, M200.1000, L300.4310, L500.4050, L300.3900, L100.0100 ####[facility] [address] [place], [place], [id number] Platelet countOrdered By: Vinicius Monteiro on 04-01-2025 Platelets (Bld) [#/Vol] 59 10*3/uL Low 150-450 [facility] Potassium (Unsp spec) [Mass/ Vol]Ordered By: Kurtis Monteiro on 10-10-2024 Potassium [Moles/Vol] 4.5 mmol/L 3.3-5.1 [facility] Protein Test strip Ql (U)Ord ered By: Kurtis Monteiro on 10-10-2024 Protein Ql (U) 500 mg/dl High Negative [facility] Prothrombin Time w/INRon INR Coag (PPP) [Relative time] 1.6 {INR} Normal [facility] Comment on above: Performed By: #### L 503.6005, M200.1000, L300.4310, L500.4050, L300.3900, L100.0100 ####[facility] [address] [place], [place], [phone] PT Coag (PPP) [Time] 19.6 s High 11.7-14.9 [facility] Comment on above: Performed By: #### L 503.6005, M200.1000, L300.4310, L500.4050, L300.3900, L100.0100 ####[facility] [address] [place], [place], [phone] Prothrombin timeOrdered By: Kurtis Monteiro on 10-10-2024 PT Coag (PPP) [Time] 19.6 s High 11.7-14.9 [facility] RBC Auto (Bld) [#/Vol]Ordere d By: Kurtis Monteiro on 10-10-2024 RBC (Bld) [#/Vol] 4.20 10*6/uL Low 4.6-6.2 [facility] Serum creatinine measurement (mass/volume)Ordered By: Kurtis Monteiro on 10-10-2024 Creatinine [Mass/Vol] 2.06 mg/dL High 0.70-1.20 [facility] Serum globulin measurementOr dered By: Kurtis Monteiro on 10-10-2024 Globulin (S) [Mass/Vol] 3.5 g/dL 2.2-4.2 [facility] Serum glucose measurement (m ass/volume)Ordered By: Kurtis Monteiro on 10-10-2024 Glucose [Mass/Vol] 178 mg/dL High 70-99 [facility] Serum or plasma alanine matson otransferase (ALT) measurementOrdered By: Kurtis Monteiro on 10-10-2024 ALT [Catalytic activity/Vol] 33 U/L <47 [facility] Serum or plasma albumin isidro urement (mass/volume)Ordered By: Kurtis Monteiro on 10-10-2024 Albumin [Mass/Vol] 3.1 g/dL Low 3.4-4.8 [facility] Serum or plasma albumin/glob ulin mass ratioOrdered By: Kurtis Monteiro on 10-10-2024 Albumin/Globulin [Mass ratio] 0.9 {ratio} 0.9-2.4 [facility] Serum or plasma alkaline yumiko sphatase measurementOrdered By: Kurtis Monteiro on 10-10-2024 ALP [Catalytic activity/Vol] 105 U/L 40-129 [facility] Serum or plasma calcium isidro urement (mass/volume)Ordered By: Kurtis Monteiro on 10-10-2024 Calcium [Mass/Vol] 9.0 mg/dL 7.6-11.0 [facility] Serum or plasma urea nitroge n measurement (mass/volume)Ordered By: Kutris Monteiro on 10-10-2024 Urea nitrogen [Mass/Vol] 69 mg/dL High 4-19 [facility] Sodium levelOrdered By: Kurtis Monteiro on 10-10-2024 Sodium [Moles/Vol] 138 mmol/L 133-145 [facility] Squamous epithelial cells de tection in urine sediment by light microscopyOrdered By: Kurtis Monteiro on 10-10-2024 Epithelial cells.squamous LM Ql (Urine sed) 0 SEEN /hpf 0-5 [facility] Total proteinOrdered By: Mary Monteiro on 10-10-2024 Protein [Mass/Vol] 6.6 g/dL 5.9-8.4 [facility] Urinalysis, Completeon 10-10 BACTERIA 2+ /hpf Normal None Seen [facility] Comment on above: Order Comment: COLOR OF URINE MAY AFFECT DIPSTICK RESULTS.MAIN ENTREE COOK AND CASHIER TO SPECIFY Performed By: #### M 100.2200, M100.678, L400.0001 ####[facility] [address] [place], [address] RBC > 100 SEEN Normal 0-5 [facility] Comment on above: Order Comment: COLOR OF URINE MAY AFFECT DIPSTICK RESULTS.MAIN ENTREE COOK AND CASHIER TO SPECIFY Performed By: #### M 100.2200, M100.678, L400.0001 ####[facility] [address] [place], [address] WBC 5-10 SEEN Normal 0-5 [facility] Comment on above: Order Comment: COLOR OF URINE MAY AFFECT DIPSTICK RESULTS.MAIN ENTREE COOK AND CASHIER TO SPECIFY Performed By: #### M 100.2200, M100.678, L400.0001 ####[facility] [address] [place], [address] EPI,SQUAMOUS 0 SEEN Normal 0-5 [facility] Comment on above: Order Comment: COLOR OF URINE MAY AFFECT DIPSTICK RESULTS.MAIN ENTREE COOK AND CASHIER TO SPECIFY Performed By: #### M 100.2200, M100.678, L400.0001 ####[facility] [address] [place], [address] Mucus Ql (Urine sed) 0 SEEN Normal [facility] Comment on above: Order Comment: COLOR OF URINE MAY AFFECT DIPSTICK RESULTS.MAIN ENTREE COOK AND CASHIER TO SPECIFY Performed By: #### M 100.2200, M100.678, L400.0001 ####[facility] [address] [place], [address] Urine blood detectionOrdered By: Kurtis Monteiro on 10-10-2024 Urine Occult Blood 250 /ul High Negative [facility] Urine clarityOrdered By: Mary Monteiro on 10-10-2024 Clarity (U) Cloudy Clear [facility] Urine color determinationOrd ered By: Kurtis Monteiro on 10-10-2024 Color (U) Red Yellow [facility] Urine cultureOrdered By: Mary Monteiro on 10-10-2024 Bacteria identified Cx Nom (U) Proteus mirabilis Abnormal [facility] Urine glucose detectionOrder ed By: Kurtis Monteiro on 10-10-2024 Glucose Ql (U) Normal mg/dl Normal [facility] Urine leukocyte esterase det ection by dipstickOrdered By: Kurtis Monteiro on 10-10-2024 Leukocyte esterase Test strip Ql (U) 500 /ul High Negative [facility] Urine pHOrdered By: Kurtis gallardo on 10-10-2024 pH (U) 9.0 [pH] 5.0 - 8.0 [facility] Urine sediment bacteria coun t by microscopy (number/high power field)Ordered By: Kurtis Monteiro on 10-10-2024 Bacteria LM.HPF (Urine sed) [#/Area] 2 /[HPF] None Seen [facility] Urine specific gravity measu rementOrdered By: Kurtis Monteiro on 10-10-2024 Specific gravity (U) [Rel density] 1.015 1.002-1.030 [facility] Urine urobilinogen measureme ntOrdered By: Kurtis Monteiro on 10-10-2024 Urobilinogen Ql (U) Normal mg/dl Normal [facility] Urobilinogen Ql (U)Ordered B y: Kurtis Monteiro on 10-10-2024 Urine Urobilinogen Normal mg/dl Normal [facility] White blood cell (WBC) count Ordered By: Kurtis Monteiro on 10-10-2024 WBC (Bld) [#/Vol] 3.7 10*3/uL Low 4.4-11.0 [facility] White blood cell countOrdere d By: Kurtis Monteiro on 10-10-2024 Urine WBC 5-10 SEEN /hpf 0-5 [facility] White blood cell count 5-10 SEEN /hpf 0-5 [facility] aPTT Coag (PPP) [Time]Ordere d By: Kurtis Monteiro on 10-10-2024 aPTT Coag (Bld) [Time] 35.3 s 24.1-36.2 [facility] CNOVon 09-22-2024 CNOV Office Visit (URCA52 2) JADON ALVAREZ ([id number]) 1955 M Date Time Provider Department 09/22/24 8:40 AM ISABELA CAMPBELL [id number] During your visit today, we recorded the following information about you: Pulse Blood pressure 56/minute 134/66 Isabela Campbell, FELT DYEING MACHINE TENDER.ENDOSCOPY TECH 09/22/2024 9:44 AM Signed [facility] ESTABLISHED PATIENT FOLLOW-UP NOTE PATIENT: Jadon Alvarez (69 year old) PCP: Ignacia Reyna, Assessment AND Plan Chronic retention of urine [...] Lohr. Canela of BPH. Failed tamsulosin. Chronic martiens Last changed 07/2024. Treated with cefdinir for [...] documented by my ancillary staff. 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 Normal [facility] Culture, Blood (WB)on 2024 CUB Blood cultures x2, f rom two different sites No growth in 5 days. Normal [facility] Comment on above: Performed By: #### M 200.1000 ####[facility] [address] [place], [address] CUB Blood cultures x2, f rom two different sites No growth in 5 days. Normal [facility] Comment on above: Performed By: #### M 200.1000 ####[facility] [address] [place], [address] [facility] 09-20-2024 [facility] Telephone (URCANT) JADON ALVAREZ ([id number]) 1955 Date Time Provider Department 09/20/24 ISABELA CAMPBELL During your visit today, we recorded the following information about you: Yokasta Gonzalez OCCA 09/20/2024 10:02 AM Signed I spoke to Michelle TSAI from [facility]. Last documentation of pt's 16FR catheter change [...] Status:Closed by YOKASTA GONZALEZ on 09/21/24 Normal [facility] Urine Cultureon 09-20-2024 URC Normal [facility] Comment on above: Performed By: #### M 100.2200 ####[facility] [address] [place], [address] 12 Lead EKGon 09-16-2024 12 Lead EKG Normal [facility] Abdomen/Pelvis W IV Cont ONL Yon 09-16-2024 Abdomen/Pelvis W IV Cont ONLY Normal [facility] Absolute lymphocyte countOrd ered By: Juan Cunha on 09-16-2024 Lymphocytes Auto (Unsp spec) [#/Vol] 1.64 10*3/uL 0.83-4.51 [facility] Absolute neutrophil countOrd ered By: Juan Cunha on 09-16-2024 Neutrophils (Bld) [#/Vol] 4.6 10*3/uL 2.0-7.7 [facility] Anion gap in Serum or Plasma Ordered By: Juan Cunha on 09-16-2024 Anion gap [Moles/Vol] 10 mmol/L 5-15 [facility] Automated lymphocyte count a s percentage of total leukocytesOrdered By: Juan Cunha on 09-16-2024 Lymphocytes/100 WBC Auto (Unsp spec) 22.5 % - [facility] BUN/creatinine ratioOrdered By: Juan Cunha on 09-16-2024 Urea nitrogen/Creatinine [Mass ratio] 19.0 mg/mg - [facility] Basic Metabolic Profile (BMP )on 09-16-2024 BUN/CRE 19.0 RATIO Normal - [facility] Comment on above: Performed By: #### L 100.0100, L503.6005, L500.2500 ####[facility] [address] [place], [address] Calcium [Mass/Vol] 9.2 mg/dL Normal 7.6-11.0 [facility] Comment on above: Performed By: #### L 100.0100, L503.6005, L500.2500 ####[facility] [address] [place], [address] Chloride [Moles/Vol] 103 mmol/L Normal 98-108 [facility] Comment on above: Performed By: #### L 100.0100, L503.6005, L500.2500 ####[facility] [address] [place], [address] CO2 [Moles/Vol] 26.6 mmol/L Normal 21.0-32.0 [facility] Comment on above: Performed By: #### L 100.0100, L503.6005, L500.2500 ####[facility] [address] [place], [address] Creatinine [Mass/Vol] 1.46 mg/dL High 0.70-1.20 [facility] Comment on above: Performed By: #### L 100.0100, L503.6005, L500.2500 ####[facility] [address] [place], [address] ECRCL 63.94 ml/min Normal 50-250 [facility] Comment on above: Performed By: #### L 100.0100, L503.6005, L500.2500 ####[facility] [address] [place], [address] GAP 10 Normal 5-15 [facility] Comment on above: Performed By: #### L 100.0100, L503.6005, L500.2500 ####[facility] [address] [place], [address] GFR/1.73 sq M.predicted among non-blacks MDRD (S/P/Bld) [Vol rate/Area] 52 mL/min/{1.73_m2} Low >60 [facility] Comment on above: Result Comment: mL/m in/1.73m2 CKD-EPI Creatinine Equation (2020) Performed By: #### L 100.0100, L503.6005, L500.2500 ####[facility] [address] [place], [address] Glucose [Mass/Vol] 179 mg/dL High 70-99 [facility] Comment on above: Performed By: #### L 100.0100, L503.6005, L500.2500 ####[facility] [address] [place], [address] Potassium [Moles/Vol] 4.7 mmol/L Normal 3.3-5.1 [facility] Comment on above: Performed By: #### L 100.0100, L503.6005, L500.2500 ####[facility] [address] [place], [address] Sodium [Moles/Vol] 140 mmol/L Normal 133-145 [facility] Comment on above: Performed By: #### L 100.0100, L503.6005, L500.2500 ####[facility] [address] [place], [address] Urea nitrogen [Mass/Vol] 28 mg/dL High 4-19 [facility] Comment on above: Performed By: #### L 100.0100, L503.6005, L500.2500 ####[facility] [address] [place], [address] Basophil percentageOrdered B y: Remus Ungur on 09-16-2024 Basophils/100 WBC (Bld) 0.5 % 0-1 [facility] Bilirubin Test strip Ql (U)O rdered By: Lucius Guerline on 09-16-2024 Bilirubin Ql (U) Negative Negative [facility] Blood cultureOrdered By: Rem us Guerline on 09-16-2024 Bacteria identified Cx Nom (Bld) No growth in 5 days. [facility] Bacteria identified Cx Nom (Bld) No growth in 5 days. [facility] [facility] Brain/Head without Contrasto n 09-16-2024 Brain/Head without Contrast Normal [facility] CBC W/Diff, Automatedon 03- Absolute Lymph 1.64 X10 3/uL Normal 0.83-4.51 [facility] Comment on above: Performed By: #### L 100.0100, L503.6005, L500.2500 ####[facility] [address] [place], [address] Absolute Neut 4.6 X10 3/uL Normal 2.0-7.7 [facility] Comment on above: Performed By: #### L 100.0100, L503.6005, L500.2500 ####[facility] [address] [place], [address] Basophils/100 WBC (Bld) 0.5 % Normal 0-1 [facility] Comment on above: Performed By: #### L 100.0100, L503.6005, L500.2500 ####[facility] [address] [place], [address] Eosinophils/100 WBC (Bld) 4.0 % Normal 0-5 [facility] Comment on above: Performed By: #### L 100.0100, L503.6005, L500.2500 ####[facility] [address] [place], [address] Erythrocyte distribution width (RBC) [Ratio] 16.2 % High 11.6-14.6 [facility] Comment on above: Performed By: #### L 100.0100, L503.6005, L500.2500 ####[facility] [address] [place], [address] Hematocrit (Bld) [Volume fraction] 38.2 % Low 40-54 [facility] Comment on above: Performed By: #### L 100.0100, L503.6005, L500.2500 ####[facility] [address] [place], [address] Hemoglobin (Bld) [Mass/Vol] 12.3 g/dL Low 13.0-16.5 [facility] Comment on above: Performed By: #### L 100.0100, L503.6005, L500.2500 ####[facility] [address] [place], [address] IG% 0.300 Normal 0.0-0.9 [facility] Comment on above: Result Comment: IG% - Immature Granulocytes (promyelocytes, myelocytes andmetamyelocytes) > 1% indicates that a LEFT SHIFT is Present. Performed By: #### L 100.0100, L503.6005, L500.2500 ####[facility] [address] [place], [address] Lymphocytes/100 WBC (Bld) 22.5 % Normal 19-41 [facility] Comment on above: Performed By: #### L 100.0100, L503.6005, L500.2500 ####[facility] [address] [place], [address] MCH (RBC) [Entitic mass] 27.7 pg Normal 27.0-32.0 [facility] Comment on above: Performed By: #### L 100.0100, L503.6005, L500.2500 ####[facility] [address] [place], [address] MCHC (RBC) [Mass/Vol] 32.2 g/dL Normal 32-36 [facility] Comment on above: Performed By: #### L 100.0100, L503.6005, L500.2500 ####[facility] [address] [place], [address] MCV (RBC) [Entitic vol] 86.0 fL Normal 80-94 [facility] Comment on above: Performed By: #### L 100.0100, L503.6005, L500.2500 ####[facility] [address] [place], [address] Monocytes/100 WBC (Bld) 9.6 % Normal 0-10 [facility] Comment on above: Performed By: #### L 100.0100, L503.6005, L500.2500 ####[facility] [address] [place], [address] Neutrophils/100 WBC (Bld) 63.1 % Normal 47-70 [facility] Comment on above: Performed By: #### L 100.0100, L503.6005, L500.2500 ####[facility] [address] [place], [address] Nucleated RBC (Bld) [#/Vol] 0 10*3/uL Normal 0-5 [facility] Comment on above: Performed By: #### L 100.0100, L503.6005, L500.2500 ####[facility] [address] [place], [address] Platelet mean volume (Bld) [Entitic vol] 11.9 fL Normal 6.2-12.0 [facility] Comment on above: Performed By: #### L 100.0100, L503.6005, L500.2500 ####[facility] [address] [place], [address] Platelets (Bld) [#/Vol] 205 10*3/uL Normal 150-450 [facility] Comment on above: Performed By: #### L 100.0100, L503.6005, L500.2500 ####[facility] [address] [place], [address] RBC (Bld) [#/Vol] 4.44 10*6/uL Low 4.6-6.2 [facility] Comment on above: Performed By: #### L 100.0100, L503.6005, L500.2500 ####[facility] [address] [place], [address] RDW SD 51.2 fl High 35.1-43.9 [facility] Comment on above: Performed By: #### L 100.0100, L503.6005, L500.2500 ####[facility] [address] [place], [address] WBC (Bld) [#/Vol] 7.3 10*3/uL Normal 4.4-11.0 [facility] Comment on above: Performed By: #### L 100.0100, L503.6005, L500.2500 ####[facility] [address] [place], [address] Carbon dioxide, total [Moles /volume] in Central venous bloodOrdered By: Juan Cunha on 09-16-2024 CO2 [Moles/Vol] 26.6 mmol/L 21.0-32.0 [facility] Chest 1 View (Portable)on Chest 1 View (Portable) Normal [facility] Chloride assayOrdered By: Emy Cunha on 09-16-2024 Chloride [Moles/Vol] 103 mmol/L 98-108 [facility] Emergency Department Summary on 09-16-2024 Emergency Department Summary Normal [facility] Eosinophil percentageOrdered By: Juan Cunha on 09-16-2024 Eosinophils/100 WBC (Bld) 4.0 % 0-5 [facility] Epithelial cells.squamous LM Ql (Urine sed)Ordered By: Juan Cunha on 09-16-2024 Epithelial cells.squamous LM.HPF (Urine sed) [#/Area] 0 /[HPF] 0-5 [facility] Erythrocyte distribution wid th ratioOrdered By: Juan Cunha on 09-16-2024 Erythrocyte distribution width (RBC) [Ratio] 16.2 % High 11.6-14.6 [facility] Erythrocyte distribution wid th standard deviationOrdered By: Juan Cunha on 09-16-2024 Erythrocyte distribution width (RBC) [Entitic vol] 51.2 fL High 35.1-43.9 [facility] Erythrocyte distribution width (RBC) [Ratio] 51.2 fl High 35.1-43.9 [facility] Estimation of creatinine jass aranceOrdered By: Juan Cunha on 09-16-2024 Estimated Creatinine Clearance Calc 63.94 ml/min 50-250 [facility] GFR/1.73 sq M.predicted kayla g non-blacks MDRD (S/P/Bld) [Vol rate/Area]Ordered By: Juan Cunha on 09-16-2024 Estimated GFR (MDRD) Non-Af Amer 52 Low >60 [facility] Comment on above: mL/min/1.73m2 CKD-EP I Creatinine Equation (2020) Glomerular filtration rate ( GFR) estimation/1.73 sq m using serum, plasma, or whole bOrdered By: Juan Cunha on 09-16-2024 GFR/1.73 sq M.predicted among non-blacks MDRD (S/P/Bld) [Vol rate/Area] 52 mL/min/{1.73_m2} Low >60 [facility] Comment on above: mL/min/1.73m2 CKD-EP I Creatinine Equation (2020) Glucose Ql (U)Ordered By: Emy Cunha on 09-16-2024 Urine Glucose (UA) Normal mg/dl Normal [facility] Hematocrit Auto (Bld) [Volum e fraction]Ordered By: Juan Cunha on 09-16-2024 Hematocrit (Bld) [Volume fraction] 38.2 % Low 40-54 [facility] Hemoglobin measurementOrdere d By: Juan Cunha on 09-16-2024 Hemoglobin (Bld) [Mass/Vol] 12.3 g/dL Low 13.0-16.5 [facility] Immature granulocytes/100 WB C Auto (Bld)Ordered By: Juan Cunha on 09-16-2024 Immature granulocytes/100 WBC (Bld) 0.300 % 0.0-0.9 [facility] Comment on above: IG% - Immature Granu locytes (promyelocytes, myelocytes and metamyelocytes) > 1% indicates that a LEFT SHIFT is Present. Influenza virus A and B and SARS-CoV-2 (COVID-19) and Respiratory syncytial virus RNAOrdered By: Juan Cunha on 09-16-2024 SARS-CoV-2 (COVID-19) RNA SUMAN+probe Ql (Unsp spec) [facility] Ketones Test strip Ql (U)Ord ered By: Juan Cunha on 09-16-2024 Ketones Ql (U) Negative Negative [facility] Lactic Acidon 09-16-2024 Lactate [Moles/Vol] 1.2 mmol/L Normal 0.0-2.0 [facility] Comment on above: Order Comment: Y Performed By: #### L 100.0100, L503.6005, L500.2500 ####[facility] [address] [place], [place], [address] Lactic acid measurementOrder ed By: Juan Cunha on 09-16-2024 Lactate [Moles/Vol] 1.2 mmol/L 0.0-2.0 [facility] Lymphocytes Auto (Unsp spec) [#/Vol]Ordered By: Juan Cunha on 09-16-2024 Lymphocytes (Bld) [#/Vol] 1.64 10*3/uL 0.83-4.51 [facility] Lymphocytes/100 WBC Auto (Un sp spec)Ordered By: Juan Cunha on 09-16-2024 Lymphocytes/100 WBC (Bld) 22.5 % 19-41 [facility] M100.678on 09-16-2024 M100.678 SARS-CoV-2 (COVID 19 ) Negative INFLUENZA A Negative INFLUENZA B Negative RSV PCR Negative Normal [facility] Comment on above: Performed By: #### M 100.678 ####[facility] [address] [place], [place], [id number] MCV (mean corpuscular volume ) determinationOrdered By: Juan Cunha on 09-16-2024 MCV (RBC) [Entitic vol] 86.0 fL 80-94 [facility] Mean corpuscular hemoglobin (MCH) determinationOrdered By: Juan Cunha on 09-16-2024 MCH (RBC) [Entitic mass] 27.7 pg 27.0-32.0 [facility] Mean corpuscular hemoglobin concentration (MCHC) determinationOrdered By: Juan Cunha on 09-16-2024 MCHC (RBC) [Mass/Vol] 32.2 g/dL 32-36 [facility] Mean platelet volume determi nationOrdered By: Juan Cunha on 09-16-2024 Platelet mean volume (Bld) [Entitic vol] 11.9 fL 6.2-12.0 [facility] Microscopic analysis of urin e for red blood cells (RBC)Ordered By: Juan Cunha on 09-16-2024 Microscopic analysis of urine for red blood cells (RBC) 0-5 SEEN /hpf 0-5 [facility] Urine RBC 0-5 SEEN /hpf 0-5 [facility] Monocyte percentageOrdered B y: Juan Cunha on 09-16-2024 Monocytes/100 WBC (Bld) 9.6 % 0-10 [facility] Mucus LM Ql (Urine sed)Order ed By: Juan Cunha on 09-16-2024 Mucus Ql (Urine sed) 3+ /hpf [facility] Neutrophil percentageOrdered By: Juan Cunha on 09-16-2024 Neutrophils/100 WBC (Bld) 63.1 % 47-70 [facility] Nitrite Test strip Ql (U)Ord ered By: Juan Cunha on 09-16-2024 Nitrite Ql (U) Positive High Negative [facility] Nucleated red blood cell per centageOrdered By: Juan Cunha on 09-16-2024 Nucleated RBC/100 WBC (Bld) [Ratio] 0 % 0-5 [facility] Platelet countOrdered By: Emy Cunha on 09-16-2024 Platelets (Bld) [#/Vol] 205 10*3/uL 150-450 [facility] Potassium (Unsp spec) [Mass/ Vol]Ordered By: Juan Cunha on 09-16-2024 Potassium [Moles/Vol] 4.7 mmol/L 3.3-5.1 [facility] Potassium measurement (mass/ volume)Ordered By: Juan Cunha on 09-16-2024 Potassium (Unsp spec) [Mass/Vol] 4.7 mmol/L 3.3-5.1 [facility] Protein Test strip Ql (U)Ord ered By: Juan Cunha on 09-16-2024 Protein Ql (U) 30 mg/dl High Negative [facility] RBC Auto (Bld) [#/Vol]Ordere d By: Juan Cunha on 09-16-2024 RBC (Bld) [#/Vol] 4.44 10*6/uL Low 4.6-6.2 [facility] Serum creatinine measurement (mass/volume)Ordered By: Juan Cunha on 09-16-2024 Creatinine [Mass/Vol] 1.46 mg/dL High 0.70-1.20 [facility] Serum glucose measurement (m ass/volume)Ordered By: Juan Cunha on 09-16-2024 Glucose [Mass/Vol] 179 mg/dL High 70-99 [facility] Serum or plasma calcium isidro urement (mass/volume)Ordered By: Juan Cunha on 09-16-2024 Calcium [Mass/Vol] 9.2 mg/dL 7.6-11.0 [facility] Serum or plasma urea nitroge n measurement (mass/volume)Ordered By: Juan Cunha on 09-16-2024 Urea nitrogen [Mass/Vol] 28 mg/dL High 4-19 [facility] Sodium levelOrdered By: Benedict Cunha on 09-16-2024 Sodium [Moles/Vol] 140 mmol/L 133-145 [facility] Spine Cervical without Contr ason 09-16-2024 Spine Cervical without Contras Normal [facility] Squamous epithelial cells de tection in urine sediment by light microscopyOrdered By: Juan Cunha on 09-16-2024 Epithelial cells.squamous LM Ql (Urine sed) 0 SEEN /hpf 0-5 [facility] Triple phosphate crystals LM Ql (Urine sed)Ordered By: Juan Cunha on 09-16-2024 Urine Triple Phosphate Crystals 2+ /hpf [facility] Triple phosphate crystals de tection in urine sediment by light microscopyOrdered By: Juan Cunha on 09-16-2024 Triple phosphate crystals LM Ql (Urine sed) 2+ /hpf [facility] Urinalysis, Completeon 09-16 BACTERIA 4+ /hpf Normal None Seen [facility] Comment on above: Order Comment: VIVIANA CTOR TO SPECIFY Performed By: #### L 400.0001 ####[facility] [address] [place], [address] Mucus Ql (Urine sed) 3+ /hpf Normal [facility] Comment on above: Order Comment: VIVIANA CTOR TO SPECIFY Performed By: #### L 400.0001 ####[facility] [address] [place], [address] RBC 0-5 SEEN Normal 0-5 [facility] Comment on above: Order Comment: VIVIANA CTOR TO SPECIFY Performed By: #### L 400.0001 ####[facility] [address] [place], [address] TRIPLE PHOS 2+ /hpf Normal [facility] Comment on above: Order Comment: VIVIANA CTOR TO SPECIFY Performed By: #### L 400.0001 ####[facility] [address] [place], [address] WBC 50-100 SEEN Normal 0-5 [facility] Comment on above: Order Comment: VIVIANA CTOR TO SPECIFY Performed By: #### L 400.0001 ####[facility] [address] [place], [address] BILIRUBIN URINE Negative Normal Negative [facility] Comment on above: Order Comment: VIVIANA CTOR TO SPECIFY Performed By: #### L 400.0001 ####[facility] [address] [place], [address] Clarity (U) Turbid Normal Clear [facility] Comment on above: Order Comment: VIVIANA CTOR TO SPECIFY Performed By: #### L 400.0001 ####[facility] [address] [place], [address] Color (U) Yellow Normal Yellow [facility] Comment on above: Order Comment: VIVIANA CTOR TO SPECIFY Performed By: #### L 400.0001 ####[facility] [address] [place], [address] GLUCOSE, UR Normal Normal Normal [facility] Comment on above: Order Comment: VIVIANA CTOR TO SPECIFY Performed By: #### L 400.0001 ####[facility] [address] [place], [address] KETONE UR Negative Normal Negative [facility] Comment on above: Order Comment: VIVIANA CTOR TO SPECIFY Performed By: #### L 400.0001 ####[facility] [address] [place], [address] LEUK ESTERASE 500 /ul Abnormal Negative [facility] Comment on above: Order Comment: VIVIANA CTOR TO SPECIFY Performed By: #### L 400.0001 ####[facility] [address] [place], [address] Nitrite Ql (U) Positive Abnormal Negative [facility] Comment on above: Order Comment: VIVIANA CTOR TO SPECIFY Performed By: #### L 400.0001 ####[facility] [address] [place], [address] OCCULT BLOOD-UR 150 /ul Abnormal Negative [facility] Comment on above: Order Comment: VIVIANA CTOR TO SPECIFY Performed By: #### L 400.0001 ####[facility] [address] [place], [address] pH UR 8.0 Normal 5.0 - 8.0 [facility] Comment on above: Order Comment: VIVIANA CTOR TO SPECIFY Performed By: #### L 400.0001 ####[facility] [address] [place], [address] PROT DIPSTX 30 mg/dl Abnormal Negative [facility] Comment on above: Order Comment: VIVIANA CTOR TO SPECIFY Performed By: #### L 400.0001 ####[facility] [address] [place], [place], [address] SP.GR. DIPSTX 1.010 Normal 1.002-1.030 [facility] Comment on above: Order Comment: VIVIANA CTOR TO SPECIFY Performed By: #### L 400.0001 ####[facility] [address] [place], [address] UROBILI Normal Normal Normal [facility] Comment on above: Order Comment: VIVIANA CTOR TO SPECIFY Performed By: #### L 400.0001 ####[facility] [address] [place], [place], [id number] EPI,SQUAMOUS 0 SEEN Normal 0-5 [facility] Comment on above: Order Comment: VIVIANA CTOR TO SPECIFY Performed By: #### L 400.0001 ####[facility] [address] [place], [address] Urine blood detectionOrdered By: Remus Cunha on 09-16-2024 Urine Occult Blood 150 /ul High Negative [facility] Urine clarityOrdered By: Luci Cunha on 09-16-2024 Clarity (U) Turbid Clear [facility] Urine color determinationOrd ered By: Juan Cunha on 09-16-2024 Color (U) Yellow Yellow [facility] Urine cultureOrdered By: Rem us Cunha on 09-16-2024 Bacteria identified Cx Nom (U) Serratia marcescens Abnormal [facility] Bacteria identified Cx Nom (U) Proteus mirabilis Abnormal [facility] Urine glucose detectionOrder ed By: Juan Cunha on 09-16-2024 Glucose Ql (U) Normal mg/dl Normal [facility] Urine leukocyte esterase det ection by dipstickOrdered By: Juan Cunha on 09-16-2024 Leukocyte esterase Test strip Ql (U) 500 /ul High Negative [facility] Urine pHOrdered By: Juan Chaparro gur on 09-16-2024 pH (U) 8.0 [pH] 5.0 - 8.0 [facility] Urine sediment bacteria coun t by microscopy (number/high power field)Ordered By: Juan Cunha on 09-16-2024 Bacteria LM.HPF (Urine sed) [#/Area] 4 /[HPF] None Seen [facility] Urine specific gravity measu rementOrdered By: Remus Unghsoea on 09-16-2024 Specific gravity (U) [Rel density] 1.010 1.002-1.030 [facility] Urine urobilinogen measureme ntOrdered By: Remus Ungur on 09-16-2024 Urobilinogen Ql (U) Normal mg/dl Normal [facility] Urobilinogen Ql (U)Ordered B y: Remus Ungur on 09-16-2024 Urine Urobilinogen Normal mg/dl Normal [facility] White blood cell (WBC) count Ordered By: Remus Cunha on 09-16-2024 WBC (Bld) [#/Vol] 7.3 10*3/uL 4.4-11.0 [facility] White blood cell countOrdere d By: Remus Unghosea on 09-16-2024 Urine WBC 50-100 SEEN /hpf 0-5 [facility] White blood cell count 50-100 SEEN /hpf 0-5 [facility] CNPNon 08-22-2024 REGANN Telephone (URCANT) JADON ALVAREZ ([id number]) 1955 M Date Time Provider Department 08/22/24 ISABELA CAMPBELL During your visit today, we recorded the following information about you: Isela Shea 08/22/2024 8:25 AM Signed senior care called to cancel/no transport They w/c to [facility] Allergies As of Date: 08/22/2024 Noted Allergy [...] Encounter Status:Closed by ISELA SHEA on 08/22/24 [facility] Wound Cultureon 07-30-2024 [facility] Comment on above: Performed By: #### M 100.3000, M1.1999, M1.4001 ####[facility] [address] [place], [place], [address] Culture, Anaerobic Any Sourc angela 07-29-2024 CUAN No anaerobic bacteri a isolated. [facility] Comment on above: Performed By: #### M 100.3000, M100.1999, M1.4001 ####[facility] [address] [place], [place], [id number] .Auto Diffon 07-28-2024 Basophil, Absolute 0.0 10 3/mcL Normal 0.0-0.2 [facility] Comment on above: Performed By: #### C MP, ADIFF, GFR, MDW, ALC, CBC, ANEU #### [address] [address] Basophils/100 WBC (Bld) 0.6 % Normal 0.0-2.5 [facility] Comment on above: Performed By: #### C MP, ADIFF, GFR, MDW, ALC, CBC, ANEU #### [address] [address] Eosinophil, Absolute 0.2 10 3/mcL Normal 0.0-0.7 [facility] Comment on above: Performed By: #### C MP, ADIFF, GFR, MDW, ALC, CBC, ANEU #### [address] [address] Eosinophils/100 WBC (Bld) 3.2 % Normal 0.0-7.0 [facility] Comment on above: Performed By: #### C MP, ADIFF, GFR, MDW, ALC, CBC, ANEU #### [address] [address] Lymphocyte, Absolute 1.0 10 3/mcL Normal 0.9-4.3 [facility] Comment on above: Performed By: #### C MP, ADIFF, GFR, MDW, ALC, CBC, ANEU #### [address] [address] Lymphocytes/100 WBC (Bld) 13.1 % Low 20.0-40.0 [facility] Comment on above: Performed By: #### C MP, ADIFF, GFR, MDW, ALC, CBC, ANEU #### [address] [address] Monocyte, Absolute 0.6 10 3/mcL Normal 0.1-1.4 [facility] Comment on above: Performed By: #### C MP, ADIFF, GFR, MDW, ALC, CBC, ANEU #### [address] [address] Monocytes/100 WBC (Bld) 7.5 % Normal 2.0-13.0 [facility] Comment on above: Performed By: #### C MP, ADIFF, GFR, MDW, ALC, CBC, ANEU #### [address] [address] Neutrophils/100 WBC (Bld) 75.6 % High 50.0-75.0 [facility] Comment on above: Performed By: #### C MP, ADIFF, GFR, MDW, ALC, CBC, ANEU #### [address] [address] .GFRon 07-28-2024 GFR 82 ml/min/1.73sqm Normal [facility] Comment on above: Result Comment: GFR Population [...] BC, ANEU, MG, ADIFF, GFR, BMP #### [address] [address] GFR Non- 68 ml/min/1.73sqm Normal [facility] Comment on above: Result Comment: GFR Population [...] BC, ANEU, MG, ADIFF, GFR, BMP #### [place] [address] .MDWon 07-28-2024 Monocyte Distribution Width Not performed Normal 0.00-20.00 [facility] Comment on above: Result Comment: MDW testing performed only on adult ER patients between the ages of 18-89 years. Performed By: #### C BC, ANEU, MG, ADIFF, GFR, BMP #### [place] [address] .NEUABSon 07-28-2024 Neutrophil, Absolute 5.5 10 3/mcL Normal 2.3-8.1 [facility] Comment on above: Performed By: #### C MP, ADIFF, GFR, MDW, ALC, CBC, ANEU #### [place] [address] Abril 07-28-2024 Ethanol Level <3 Normal [facility] Comment on above: Performed By: #### C BC, ANEU, MG, ADIFF, GFR, BMP #### [place] [address] CBCon 07-28-2024 Erythrocyte distribution width (RBC) [Ratio] 19.1 % High 11.5-15.5 [facility] Comment on above: Performed By: #### C MP, ADIFF, GFR, MDW, ALC, CBC, ANEU #### [place] [address] Hematocrit (Bld) [Volume fraction] 43.5 % Normal 40.0-52.0 [facility] Comment on above: Performed By: #### C MP, ADIFF, GFR, MDW, ALC, CBC, ANEU #### [place] [address] Hgb 14.2 G/dL Normal 13.0-17.5 [facility] Comment on above: Performed By: #### C MP, ADIFF, GFR, MDW, ALC, CBC, ANEU #### [address] [address] MCH (RBC) [Entitic mass] 27.2 pg Normal 27.0-33.0 [facility] Comment on above: Performed By: #### C MP, ADIFF, GFR, MDW, ALC, CBC, ANEU #### [address] [address] MCHC 32.6 G/dL Normal 32.0-36.0 [facility] Comment on above: Performed By: #### C MP, ADIFF, GFR, MDW, ALC, CBC, ANEU #### [address] [address] MCV (RBC) [Entitic vol] 83.5 fL Normal 81.0-100.0 [facility] Comment on above: Performed By: #### C MP, ADIFF, GFR, MDW, ALC, CBC, ANEU #### [address] [address] Platelet 166 10 3/mcL Normal 150-450 [facility] Comment on above: Performed By: #### C MP, ADIFF, GFR, MDW, ALC, CBC, ANEU #### [address] [address] Platelet mean volume (Bld) [Entitic vol] 10.2 fL Normal 6.4-10.5 [facility] Comment on above: Performed By: #### C MP, ADIFF, GFR, MDW, ALC, CBC, ANEU #### [address] [address] RBC 5.21 10 6/mcL Normal 4.50-6.00 [facility] Comment on above: Performed By: #### C MP, ADIFF, GFR, MDW, ALC, CBC, ANEU #### [address] [address] WBC 7.3 10 3/mcL Normal 4.5-10.8 [facility] Comment on above: Performed By: #### C MP, ADIFF, GFR, MDW, ALC, CBC, ANEU #### [place] [id number] CMPon 07-28-2024 Albumin Level 3.6 G/dL Normal 3.4-4.8 [facility] Comment on above: Performed By: #### C BC, ANEU, MG, ADIFF, GFR, BMP #### [place] [address] Albumin/Globulin [Mass ratio] 1.0 {ratio} Low 1.1-2.5 [facility] Comment on above: Performed By: #### C BC, ANEU, MG, ADIFF, GFR, BMP #### [place] [id number] ALP [Catalytic activity/Vol] 114 U/L Normal 40-135 [facility] Comment on above: Performed By: #### C BC, ANEU, MG, ADIFF, GFR, BMP #### [place] [phone] ALT [Catalytic activity/Vol] 20 U/L Normal 16-63 [facility] Comment on above: Performed By: #### C BC, ANEU, MG, ADIFF, GFR, BMP #### [place] [phone] AST [Catalytic activity/Vol] 19 U/L Normal 10-40 [facility] Comment on above: Performed By: #### C BC, ANEU, MG, ADIFF, GFR, BMP #### [address] [address] Bili Total 0.6 mg/dL Normal 0.2-1.0 [facility] Comment on above: Result Comment: Use of this assay is not recommended for patients undergoing treatment with eltrombopag due to the potential for falsely elevated results. Performed By: #### C BC, ANEU, MG, ADIFF, GFR, BMP #### [place] [address] BUN/Creatinine Ratio 26 ratio Normal 7-27 [facility] Comment on above: Performed By: #### C BC, ANEU, MG, ADIFF, GFR, BMP #### [place] [address] Calcium [Mass/Vol] 9.1 mg/dL Normal 8.4-10.2 [facility] Comment on above: Performed By: #### C BC, ANEU, MG, ADIFF, GFR, BMP #### [place] [address] Chloride [Moles/Vol] 108 mmol/L High 98-107 [facility] Comment on above: Performed By: #### C BC, ANEU, MG, ADIFF, GFR, BMP #### [place] [address] CO2 [Moles/Vol] 23 mmol/L Normal 23-31 [facility] Comment on above: Performed By: #### C BC, ANEU, MG, ADIFF, GFR, BMP #### [place] [address] Creatinine [Mass/Vol] 1.08 mg/dL Normal 0.70-1.30 [facility] Comment on above: Result Comment: Test ing performed on Siemens Dimension EXL analyzer using a modified kinetic Uyen technique. Performed By: #### C BC, ANEU, MG, ADIFF, GFR, BMP #### [place] [address] Electrolyte Balance 14.0 mEq/L Normal 4.0-15.0 [facility] Comment on above: Performed By: #### C BC, ANEU, MG, ADIFF, GFR, BMP #### [place] [address] Globulin 3.5 G/dL Normal [facility] Comment on above: Performed By: #### C BC, ANEU, MG, ADIFF, GFR, BMP #### [place] [address] Glucose [Mass/Vol] 104 mg/dL Normal 80-115 [facility] Comment on above: Performed By: #### C BC, ANEU, MG, ADIFF, GFR, BMP #### [place] [address] Potassium [Moles/Vol] 4.7 mmol/L Normal 3.5-5.1 [facility] Comment on above: Performed By: #### C BC, ANEU, MG, ADIFF, GFR, BMP #### [place] [address] Sodium [Moles/Vol] 145 mmol/L Normal 136-145 [facility] Comment on above: Performed By: #### C BC, ANEU, MG, ADIFF, GFR, BMP #### [place] [address] Total Protein 7.1 G/dL Normal 6.4-8.2 [facility] Comment on above: Performed By: #### C BC, ANEU, MG, ADIFF, GFR, BMP #### [place] [address] Urea nitrogen [Mass/Vol] 28 mg/dL High 7-18 [facility] Comment on above: Performed By: #### C BC, ANEU, MG, ADIFF, GFR, BMP #### [place] [address] CVFLURVon 07-28-2024 FLU A PCR Negative Normal Negative [facility] Comment on above: Performed By: #### C BC, ANEU, MG, ADIFF, GFR, BMP #### [place] [address] FLU B PCR Negative Normal Negative [facility] Comment on above: Performed By: #### C BC, ANEU, MG, ADIFF, GFR, BMP #### [place] [address] RSV PCR Negative Normal Negative [facility] Comment on above: Performed By: #### C BC, ANEU, MG, ADIFF, GFR, BMP #### [place] [address] SARS-CoV-2 (COVID-19) RNA SUMAN+probe Ql (Unsp spec) Negative Normal Negative [facility] Comment on above: Result Comment: Resu lts [...] BC, ANEU, MG, ADIFF, GFR, BMP #### [address] [address] LABORATORYOrdered By: SYSTEM SYSTEM on 07-28-2024 Albumin [...] above: Interpretive Data: T esting performed on VCharge Dimension EXL analyzer using a modified kinetic [...] influenza vaccines may cause inaccurate positive results. UDRUGon 07-28-2024 Amphetamine (u) Negative Normal Negative [facility] Comment on above: Performed By: #### C BC, LOUIS, MG, ADIFF, GFR, BMP #### [address] [address] Barbiturate (u) Negative Normal Negative [facility] Comment on above: Performed By: #### C BC, ANEU, MG, ADIFF, GFR, BMP #### [address] [address] Benzodiazepine (u) Negative Normal Negative [facility] Comment on above: Performed By: #### C BC, ANEU, MG, ADIFF, GFR, BMP #### [place] [address] Cannabinoid (u) Negative Normal Negative [facility] Comment on above: Performed By: #### C BC, ANEU, MG, ADIFF, GFR, BMP #### [place] [address] Cocaine Ql (U) Negative Normal Negative [facility] Comment on above: Performed By: #### C BC, ANEU, MG, ADIFF, GFR, BMP #### [place] [address] Methadone Ql (U) Negative Normal Negative [facility] Comment on above: Performed By: #### C BC, ANEU, MG, ADIFF, GFR, BMP #### [place] [address] Opiate (u) Negative Normal Negative [facility] Comment on above: Performed By: #### C BC, ANEU, MG, ADIFF, GFR, BMP #### [place] [address] PCP (u) Negative Normal Negative [facility] Comment on above: Performed By: #### C BC, ANEU, MG, ADIFF, GFR, BMP #### [place] [address] Urine Drugs screened: See Below Normal [facility] Comment on above: Result Comment: This drug [...] ANEU, MG, ADIFF, GFR, BMP #### [place] [address] [place], [place] [address] Bacteria identified Anaer cx Nom (Unsp spec)Ordered By: Aaron Shannon on 07-26-2024 Anaerobic Culture No anaerobic bacteri a isolated. [facility] Gram Stainon 07-26-2024 GS Gram Stain 2+ White Blood Cells No organisms seen Normal [facility] Comment on above: Performed By: #### M 100.3000, M100.2000, M100.4001 ####[facility] [id number] [place], [address] Gram stainOrdered By: Mari Shannon on 07-26-2024 Microscopic observation Gram stain Nom (Unsp spec) [facility] Routine wound cultureOrdered By: Aaron Shannon on 07-26-2024 Wound Culture Meth. resistant Stap h. aureus Abnormal [facility] CNPNon 07-13-2024 CNPN Telephone (URCANT) JADON ALVAREZ ([id number]) 1955 Juan Daniel Date Time Provider Department 07/13/24 ISABELA CAMPBELL URCANChris During your visit today, we recorded the following information about you: Isela Shea 07/13/2024 8:37 AM Signed Nannette from [facility] called st bladder [...] Encounter Status:Closed by ISELA SHEA on 07/13/24 [facility] Bedside Glucoseon 06-05-2024 FINGERSTICK GLU 125 mg/dL High 74-106 [facility] Comment on above: Result Comment: PETER HINSON OF PATIENT CARE PER NURSING PROTOCOL Performed By: #### L 501.080 ####[facility] [id number] [place], [address] [facility] deOrdered By: Aaron Shannon on 06-05-2024 Bedside Glucose (Misc Panel) 125 mg/dL High 74-106 [facility] Comment on above: MANAGEMENT OF PATIEN T CARE PER NURSING PROTOCOL MR/POSTOP.ANEon 06-05-2024 MR/POSTOP.ANE Normal [facility] MR/[id number] 06-05-2024 MR/POSTOPAN2 Normal [facility] Operative Reporton Operative Report Normal [facility] CNPNon 04-20-2024 REGANN Telephone (XU) JADON ALVAREZ ([id number]) 1955 M Date Time Provider Department 04/20/24 DONOVAN EDMONDSON During your visit today, we recorded the following information about you: Kira Carrasco 04/20/2024 9:03 AM Signed Called patient to reschedule. Spoke with son Romina who stated patient is at [facility] and will probably stay there for nursing home care. Patient has had surgery and treatment [...] Status:Closed by DESHAWN PALACIO on 04/20/24 Normal [facility] .Auto Diffon 04-08-2024 Basophil, Absolute 0.0 10 3/mcL Normal 0.0-0.2 [facility] Comment on above: Performed By: #### C BC, ANEU, MG, ADIFF, GFR, BMP #### [address] [address] Basophils/100 WBC (Bld) 0.8 % Normal 0.0-2.5 [facility] Comment on above: Performed By: #### C BC, ANEU, MG, ADIFF, GFR, BMP #### [address] [address] Eosinophil, Absolute 0.4 10 3/mcL Normal 0.0-0.7 [facility] Comment on above: Performed By: #### C BC, ANEU, MG, ADIFF, GFR, BMP #### [address] [address] Eosinophils/100 WBC (Bld) 6.9 % Normal 0.0-7.0 [facility] Comment on above: Performed By: #### C BC, ANEU, MG, ADIFF, GFR, BMP #### [address] [address] Lymphocyte, Absolute 1.2 10 3/mcL Normal 0.9-4.3 [facility] Comment on above: Performed By: #### C BC, ANEU, MG, ADIFF, GFR, BMP #### [address] [address] Lymphocytes/100 WBC (Bld) 21.1 % Normal 20.0-40.0 [facility] Comment on above: Performed By: #### C BC, ANEU, MG, ADIFF, GFR, BMP #### [address] [address] Monocyte, Absolute 0.4 10 3/mcL Normal 0.1-1.4 [facility] Comment on above: Performed By: #### C BC, ANEU, MG, ADIFF, GFR, BMP #### [address] [address] Monocytes/100 WBC (Bld) 7.5 % Normal 2.0-13.0 [facility] Comment on above: Performed By: #### C BC, ANEU, MG, ADIFF, GFR, BMP #### [address] [address] Neutrophils/100 WBC (Bld) 63.7 % Normal 50.0-75.0 [facility] Comment on above: Performed By: #### C BC, ANEU, MG, ADIFF, GFR, BMP #### [address] [address] .GFRon 04-08-2024 GFR 74 ml/min/1.73sqm Normal [facility] Comment on above: Result Comment: GFR Population [...] BC, ANEU, MG, ADIFF, GFR, BMP #### [address] [address] GFR Non- 61 ml/min/1.73sqm Normal [facility] Comment on above: Result Comment: GFR Population [...] BC, ANEU, MG, ADIFF, GFR, BMP #### [address] [address] .NEUABSon 04-08-2024 Neutrophil, Absolute 3.7 10 3/mcL Normal 2.3-8.1 [facility] Comment on above: Performed By: #### C BC, ANEU, MG, ADIFF, GFR, BMP #### [address] [address] BMPon 04-08-2024 BUN/Creatinine Ratio 14 ratio Normal 7-27 [facility] Comment on above: Performed By: #### C BC, ANEU, MG, ADIFF, GFR, BMP #### [address] [address] Calcium [Mass/Vol] 8.8 mg/dL Normal 8.4-10.2 [facility] Comment on above: Performed By: #### C BC, ANEU, MG, ADIFF, GFR, BMP #### [address] [address] Chloride [Moles/Vol] 103 mmol/L Normal 98-107 [facility] Comment on above: Performed By: #### C BC, ANEU, MG, ADIFF, GFR, BMP #### [address] [address] CO2 [Moles/Vol] 30 mmol/L Normal 23-31 [facility] Comment on above: Performed By: #### C BC, ANEU, MG, ADIFF, GFR, BMP #### [address] [address] Creatinine [Mass/Vol] 1.19 mg/dL Normal 0.70-1.30 [facility] Comment on above: Result Comment: Test ing performed on Siemens Dimension EXL analyzer using a modified kinetic Uyen technique. Performed By: #### C BC, ANEU, MG, ADIFF, GFR, BMP #### [address] [address] Electrolyte Balance 6.0 mEq/L Normal 4.0-15.0 [facility] Comment on above: Performed By: #### C BC, ANEU, MG, ADIFF, GFR, BMP #### [address] [address] Glucose [Mass/Vol] 94 mg/dL Normal 80-115 [facility] Comment on above: Performed By: #### C BC, ANEU, MG, ADIFF, GFR, BMP #### [address] [address] Potassium [Moles/Vol] 4.7 mmol/L Normal 3.5-5.1 [facility] Comment on above: Performed By: #### C BC, ANEU, MG, ADIFF, GFR, BMP #### [address] [address] Sodium [Moles/Vol] 139 mmol/L Normal 136-145 [facility] Comment on above: Performed By: #### C BC, ANEU, MG, ADIFF, GFR, BMP #### [address] [address] Urea nitrogen [Mass/Vol] 17 mg/dL Normal 7-18 [facility] Comment on above: Performed By: #### C BC, ANEU, MG, ADIFF, GFR, BMP #### [address] [address] CBCon 04-08-2024 Erythrocyte distribution width (RBC) [Ratio] 19.4 % High 11.5-15.5 [facility] Comment on above: Performed By: #### C BC, ANEU, MG, ADIFF, GFR, BMP #### [address] [address] Hematocrit (Bld) [Volume fraction] 36.5 % Low 40.0-52.0 [facility] Comment on above: Performed By: #### C BC, ANEU, MG, ADIFF, GFR, BMP #### [place] [address] Hgb 11.7 G/dL Low 13.0-17.5 [facility] Comment on above: Performed By: #### C BC, ANEU, MG, ADIFF, GFR, BMP #### [place] [address] MCH (RBC) [Entitic mass] 27.2 pg Normal 27.0-33.0 [facility] Comment on above: Performed By: #### C BC, ANEU, MG, ADIFF, GFR, BMP #### [place] [address] MCHC 32.1 G/dL Normal 32.0-36.0 [facility] Comment on above: Performed By: #### C BC, ANEU, MG, ADIFF, GFR, BMP #### [place] [id number] MCV (RBC) [Entitic vol] 84.9 fL Normal 81.0-100.0 [facility] Comment on above: Performed By: #### C BC, ANEU, MG, ADIFF, GFR, BMP #### [address] [address] Platelet 198 10 3/mcL Normal 150-450 [facility] Comment on above: Performed By: #### C BC, ANEU, MG, ADIFF, GFR, BMP #### [address] [address] Platelet mean volume (Bld) [Entitic vol] 9.9 fL Normal 6.4-10.5 [facility] Comment on above: Performed By: #### C BC, ANEU, MG, ADIFF, GFR, BMP #### [facility] [address] [place], [place] [address] RBC 4.30 10 6/mcL Low 4.50-6.00 [facility] Comment on above: Performed By: #### C BC, ANEU, MG, ADIFF, GFR, BMP #### [facility] [address] [place], [place] [address] WBC 5.8 10 3/mcL Normal 4.5-10.8 [facility] Comment on above: Performed By: #### C BC, ANEU, MG, ADIFF, GFR, BMP #### [facility] [address] [place], [place] [address] LABORATORYOrdered By: Pebbles Rivas on 04-08-2024 Blood Glucose Testing Reason Routine (04/08/24 8:02 AM) [facility] Work Phone: Glucose [Mass/Vol] 112 mg/dL Normal 82 - 115 mg/dL [facility] Work Phone: LABORATORYOrdered By: SYSTEM SYSTEM [...] above: Interpretive Data: T esting performed on VCharge Dimension EXL analyzer using a modified kinetic [...] 04-08-2024 Magnesium [Mass/Vol] 2.0 mg/dL Normal 1.8-2.4 [facility] Comment on above: Performed By: #### C BC, ANEU, MG, ADIFF, GFR, BMP #### [address] [address] .Auto Diffon 04-07-2024 Basophil, Absolute 0.1 10 3/mcL Normal 0.0-0.2 [facility] Comment on above: Performed By: #### C BC, ANEU, MG, ADIFF, GFR, BMP #### [address] [address] Basophils/100 WBC (Bld) 0.9 % Normal 0.0-2.5 [facility] Comment on above: Performed By: #### C BC, ANEU, MG, ADIFF, GFR, BMP #### [address] [address] Eosinophil, Absolute 0.4 10 3/mcL Normal 0.0-0.7 [facility] Comment on above: Performed By: #### C BC, ANEU, MG, ADIFF, GFR, BMP #### [address] [address] Eosinophils/100 WBC (Bld) 6.9 % Normal 0.0-7.0 [facility] Comment on above: Performed By: #### C BC, ANEU, MG, ADIFF, GFR, BMP #### [address] [address] Lymphocyte, Absolute 0.9 10 3/mcL Normal 0.9-4.3 [facility] Comment on above: Performed By: #### C BC, ANEU, MG, ADIFF, GFR, BMP #### [address] [address] Lymphocytes/100 WBC (Bld) 15.1 % Low 20.0-40.0 [facility] Comment on above: Performed By: #### C BC, ANEU, MG, ADIFF, GFR, BMP #### [address] [address] Monocyte, Absolute 0.5 10 3/mcL Normal 0.1-1.4 [facility] Comment on above: Performed By: #### C BC, ANEU, MG, ADIFF, GFR, BMP #### [address] [address] Monocytes/100 WBC (Bld) 9.1 % Normal 2.0-13.0 [facility] Comment on above: Performed By: #### C BC, ANEU, MG, ADIFF, GFR, BMP #### [address] [address] Neutrophils/100 WBC (Bld) 68.0 % Normal 50.0-75.0 [facility] Comment on above: Performed By: #### C BC, ANEU, MG, ADIFF, GFR, BMP #### [address] [address] .GFRon 04-07-2024 GFR 74 ml/min/1.73sqm Normal [facility] Comment on above: Result Comment: GFR Population [...] BC, ANEU, MG, ADIFF, GFR, BMP #### [address] [address] GFR Non- 61 ml/min/1.73sqm Normal [facility] Comment on above: Result Comment: GFR Population [...] BC, ANEU, MG, ADIFF, GFR, BMP #### [address] [address] .NEUABSon 04-07-2024 Neutrophil, Absolute 3.9 10 3/mcL Normal 2.3-8.1 [facility] Comment on above: Performed By: #### C BC, ANEU, MG, ADIFF, GFR, BMP #### [address] [address] BMPon 04-07-2024 BUN/Creatinine Ratio 16 ratio Normal 7-27 [facility] Comment on above: Performed By: #### C BC, ANEU, MG, ADIFF, GFR, BMP #### [address] [address] Calcium [Mass/Vol] 8.8 mg/dL Normal 8.4-10.2 [facility] Comment on above: Performed By: #### C BC, ANEU, MG, ADIFF, GFR, BMP #### [address] [address] Chloride [Moles/Vol] 103 mmol/L Normal 98-107 [facility] Comment on above: Performed By: #### C BC, ANEU, MG, ADIFF, GFR, BMP #### [address] [address] CO2 [Moles/Vol] 32 mmol/L High 23-31 [facility] Comment on above: Performed By: #### C BC, ANEU, MG, ADIFF, GFR, BMP #### [address] [address] Creatinine [Mass/Vol] 1.19 mg/dL Normal 0.70-1.30 [facility] Comment on above: Result Comment: Test ing performed on Siemens Dimension EXL analyzer using a modified kinetic Uyen technique. Performed By: #### C BC, ANEU, MG, ADIFF, GFR, BMP #### [address] [address] Electrolyte Balance 2.0 mEq/L Low 4.0-15.0 [facility] Comment on above: Performed By: #### C BC, ANEU, MG, ADIFF, GFR, BMP #### [address] [address] Glucose [Mass/Vol] 101 mg/dL Normal 80-115 [facility] Comment on above: Performed By: #### C BC, ANEU, MG, ADIFF, GFR, BMP #### [address] [address] Potassium [Moles/Vol] 4.7 mmol/L Normal 3.5-5.1 [facility] Comment on above: Performed By: #### C BC, ANEU, MG, ADIFF, GFR, BMP #### [address] [address] Sodium [Moles/Vol] 137 mmol/L Normal 136-145 [facility] Comment on above: Performed By: #### C BC, ANEU, MG, ADIFF, GFR, BMP #### [address] [address] Urea nitrogen [Mass/Vol] 19 mg/dL High 7-18 [facility] Comment on above: Performed By: #### C BC, ANEU, MG, ADIFF, GFR, BMP #### [address] [address] CBCon 04-07-2024 Erythrocyte distribution width (RBC) [Ratio] 20.0 % High 11.5-15.5 [facility] Comment on above: Performed By: #### C BC, ANEU, MG, ADIFF, GFR, BMP #### [address] [address] Hematocrit (Bld) [Volume fraction] 36.2 % Low 40.0-52.0 [facility] Comment on above: Performed By: #### C BC, ANEU, MG, ADIFF, GFR, BMP #### [address] [address] Hgb 11.5 G/dL Low 13.0-17.5 [facility] Comment on above: Performed By: #### C BC, ANEU, MG, ADIFF, GFR, BMP #### [address] [address] MCH (RBC) [Entitic mass] 27.0 pg Normal 27.0-33.0 [facility] Comment on above: Performed By: #### C BC, ANEU, MG, ADIFF, GFR, BMP #### [address] [address] MCHC 31.7 G/dL Low 32.0-36.0 [facility] Comment on above: Performed By: #### C BC, ANEU, MG, ADIFF, GFR, BMP #### [address] [address] MCV (RBC) [Entitic vol] 85.2 fL Normal 81.0-100.0 [facility] Comment on above: Performed By: #### C BC, ANEU, MG, ADIFF, GFR, BMP #### [address] [address] Platelet 171 10 3/mcL Normal 150-450 [facility] Comment on above: Performed By: #### C BC, ANEU, MG, ADIFF, GFR, BMP #### [address] [address] Platelet mean volume (Bld) [Entitic vol] 9.3 fL Normal 6.4-10.5 [facility] Comment on above: Performed By: #### C BC, ANEU, MG, ADIFF, GFR, BMP #### [place] [id number] RBC 4.25 10 6/mcL Low 4.50-6.00 [facility] Comment on above: Performed By: #### C BC, ANEU, MG, ADIFF, GFR, BMP #### [place] [id number] [place], [place] [address] WBC 5.8 10 3/mcL Normal 4.5-10.8 [facility] Comment on above: Performed By: #### C BC, ANEU, MG, ADIFF, GFR, BMP #### [facility] [address] [place], [place] [address] LABORATORYOrdered By: Altaf Pabon on 04-07-2024 Blood Glucose Testing Reason Routine (04/07/24 9:32 PM) [facility] Work Phone: Glucose [Mass/Vol] 119 mg/dL High 82 - 115 mg/dL [facility] Work Phone: LABORATORYOrdered By: Bebeto Magdaleno on 04-07-2024 Blood Glucose Testing Reason Routine (04/07/24 4:20 PM) [facility] Work Phone: Glucose [Mass/Vol] 152 mg/dL High 82 - 115 mg/dL [facility] Work Phone: LABORATORYOrdered By: SYSTEM SYSTEM [...] 04-07-2024 Magnesium [Mass/Vol] 2.1 mg/dL Normal 1.8-2.4 [facility] Comment on above: Performed By: #### C BC, ANEU, MG, ADIFF, GFR, BMP #### [address] [address] .Auto Diffon 04-06-2024 Basophil, Absolute 0.1 10 3/mcL Normal 0.0-0.2 [facility] Comment on above: Performed By: #### C BC, ANEU, MG, ADIFF, GFR, BMP #### [address] [address] Basophils/100 WBC (Bld) 0.9 % Normal 0.0-2.5 [facility] Comment on above: Performed By: #### C BC, ANEU, MG, ADIFF, GFR, BMP #### [address] [address] Eosinophil, Absolute 0.2 10 3/mcL Normal 0.0-0.7 [facility] Comment on above: Performed By: #### C BC, ANEU, MG, ADIFF, GFR, BMP #### [address] [address] Eosinophils/100 WBC (Bld) 4.0 % Normal 0.0-7.0 [facility] Comment on above: Performed By: #### C BC, ANEU, MG, ADIFF, GFR, BMP #### [address] [address] Lymphocyte, Absolute 0.6 10 3/mcL Low 0.9-4.3 [facility] Comment on above: Performed By: #### C BC, ANEU, MG, ADIFF, GFR, BMP #### [address] [address] Lymphocytes/100 WBC (Bld) 11.2 % Low 20.0-40.0 [facility] Comment on above: Performed By: #### C BC, ANEU, MG, ADIFF, GFR, BMP #### [address] [address] Monocyte, Absolute 0.5 10 3/mcL Normal 0.1-1.4 [facility] Comment on above: Performed By: #### C BC, ANEU, MG, ADIFF, GFR, BMP #### [address] [address] Monocytes/100 WBC (Bld) 8.8 % Normal 2.0-13.0 [facility] Comment on above: Performed By: #### C BC, ANEU, MG, ADIFF, GFR, BMP #### [address] [address] Neutrophils/100 WBC (Bld) 75.1 % High 50.0-75.0 [facility] Comment on above: Performed By: #### C BC, ANEU, MG, ADIFF, GFR, BMP #### [address] [address] .GFRon 04-06-2024 GFR 57 ml/min/1.73sqm Normal [facility] Comment on above: Result Comment: GFR Population [...] BC, ANEU, MG, ADIFF, GFR, BMP #### [address] [address] GFR Non- 47 ml/min/1.73sqm Normal [facility] Comment on above: Result Comment: GFR Population [...] BC, ANEU, MG, ADIFF, GFR, BMP #### [place] [address] .MDWon 04-06-2024 Monocyte Distribution Width 17.65 Normal 0.00-20.00 [facility] Comment on above: Result Comment: For ED adult patients suspected of sepsis, MDW<=20.0 does not rule out sepsis or risk of sepsis Performed By: #### C BC, ANEU, MG, ADIFF, GFR, BMP #### [place] [address] .NEUABSon 04-06-2024 Neutrophil, Absolute 4.2 10 3/mcL Normal 2.3-8.1 [facility] Comment on above: Performed By: #### C BC, ANEU, MG, ADIFF, GFR, BMP #### [place] [address] .Urinalysis Microscopic (AO) on 04-06-2024 UA Bacteria 2+ /hpf Abnormal [facility] Comment on above: Performed By: #### C BC, ANEU, MG, ADIFF, GFR, BMP #### [place] [address] UA RBC 5-10 Abnormal None Seen [facility] Comment on above: Performed By: #### C BC, ANEU, MG, ADIFF, GFR, BMP #### [address] [address] UA Squam Epithelial 0-5 Abnormal None Seen [facility] Comment on above: Performed By: #### C BC, ANEU, MG, ADIFF, GFR, BMP #### [address] [address] UA WBC LOADED Abnormal None Seen [facility] Comment on above: Performed By: #### C BC, ANEU, MG, ADIFF, GFR, BMP #### [address] [address] ACTONon 04-06-2024 Acetone (s) Small Abnormal Negative [facility] Comment on above: Performed By: #### C BC, ANEU, MG, ADIFF, GFR, BMP #### [place] [address] CBCon 04-06-2024 Erythrocyte distribution width (RBC) [Ratio] 20.0 % High 11.5-15.5 [facility] Comment on above: Performed By: #### C BC, ANEU, MG, ADIFF, GFR, BMP #### [address] [address] Hematocrit (Bld) [Volume fraction] 38.6 % Low 40.0-52.0 [facility] Comment on above: Performed By: #### C BC, ANEU, MG, ADIFF, GFR, BMP #### [place] [address] Hgb 12.4 G/dL Low 13.0-17.5 [facility] Comment on above: Performed By: #### C BC, ANEU, MG, ADIFF, GFR, BMP #### [address] [address] MCH (RBC) [Entitic mass] 27.3 pg Normal 27.0-33.0 [facility] Comment on above: Performed By: #### C BC, ANEU, MG, ADIFF, GFR, BMP #### [place] [address] MCHC 32.1 G/dL Normal 32.0-36.0 [facility] Comment on above: Performed By: #### C BC, ANEU, MG, ADIFF, GFR, BMP #### [address] [address] MCV (RBC) [Entitic vol] 84.9 fL Normal 81.0-100.0 A [facility] Comment on above: Performed By: #### C BC, ANEU, MG, ADIFF, GFR, BMP #### [address] [address] Platelet 183 10 3/mcL Normal 150-450 [facility] Comment on above: Performed By: #### C BC, ANEU, MG, ADIFF, GFR, BMP #### [place] [address] Platelet mean volume (Bld) [Entitic vol] 9.5 fL Normal 6.4-10.5 [facility] Comment on above: Performed By: #### C BC, ANEU, MG, ADIFF, GFR, BMP #### [address] [address] RBC 4.55 10 6/mcL Normal 4.50-6.00 [facility] Comment on above: Performed By: #### C BC, ANEU, MG, ADIFF, GFR, BMP #### [address] [address] WBC 5.6 10 3/mcL Normal 4.5-10.8 [facility] Comment on above: Performed By: #### C BC, ANEU, MG, ADIFF, GFR, BMP #### [address] [address] CEFAZOLIN:SUSC:PT:ISOLATE:OR DQN:MICon 04-06-2024 ceFAZolin KIARA [Susc] 10,000 - 50,000 cfu /ml Methicillin-Resistant Staphylococcus aureus [facility] Albumin Level 3.2 G/dL Low 3.4-4.8 [facility] Comment on above: Performed By: #### C BC, ANEU, MG, ADIFF, GFR, BMP #### [place] [address] Albumin/Globulin [Mass ratio] 0.8 {ratio} Low 1.1-2.5 [facility] Comment on above: Performed By: #### C BC, ANEU, MG, ADIFF, GFR, BMP #### [place] [address] ALP [Catalytic activity/Vol] 78 U/L Normal 40-135 [facility] Comment on above: Performed By: #### C BC, ANEU, MG, ADIFF, GFR, BMP #### [place] [address] ALT [Catalytic activity/Vol] 16 U/L Normal 16-63 [facility] Comment on above: Performed By: #### C BC, ANEU, MG, ADIFF, GFR, BMP #### [place] [address] AST [Catalytic activity/Vol] 13 U/L Normal 10-40 [facility] Comment on above: Performed By: #### C BC, ANEU, MG, ADIFF, GFR, BMP #### [place] [address] Bili Total 0.4 mg/dL Normal 0.2-1.0 [facility] Comment on above: Result Comment: Use of this assay is not recommended for patients undergoing treatment with eltrombopag due to the potential for falsely elevated results. Performed By: #### C BC, ANEU, MG, ADIFF, GFR, BMP #### [place] [address] BUN/Creatinine Ratio 16 ratio Normal 7-27 [facility] Comment on above: Performed By: #### C BC, ANEU, MG, ADIFF, GFR, BMP #### [place] [address] Calcium [Mass/Vol] 9.2 mg/dL Normal 8.4-10.2 [facility] Comment on above: Performed By: #### C BC, ANEU, MG, ADIFF, GFR, BMP #### [address] [address] Chloride [Moles/Vol] 100 mmol/L Normal 98-107 [facility] Comment on above: Performed By: #### C BC, ANEU, MG, ADIFF, GFR, BMP #### [place] [address] CO2 [Moles/Vol] 33 mmol/L High 23-31 [facility] Comment on above: Performed By: #### C BC, ANEU, MG, ADIFF, GFR, BMP #### [place] [address] Creatinine [Mass/Vol] 1.48 mg/dL High 0.70-1.30 [facility] Comment on above: Result Comment: Test ing performed on Siemens Dimension EXL analyzer using a modified kinetic Uyen technique. Performed By: #### C BC, ANEU, MG, ADIFF, GFR, BMP #### [address] [address] Electrolyte Balance 4.0 mEq/L Normal 4.0-15.0 [facility] Comment on above: Performed By: #### C BC, ANEU, MG, ADIFF, GFR, BMP #### [address] [address] Globulin 3.9 G/dL Normal [facility] Comment on above: Performed By: #### C BC, ANEU, MG, ADIFF, GFR, BMP #### [address] [address] Glucose [Mass/Vol] 108 mg/dL Normal 80-115 [facility] Comment on above: Performed By: #### C BC, ANEU, MG, ADIFF, GFR, BMP #### [address] [address] Potassium [Moles/Vol] 4.9 mmol/L Normal 3.5-5.1 [facility] Comment on above: Performed By: #### C BC, ANEU, MG, ADIFF, GFR, BMP #### [place] [id number] [place], [place] [address] Sodium [Moles/Vol] 137 mmol/L Normal 136-145 [facility] Comment on above: Performed By: #### C BC, ANEU, MG, ADIFF, GFR, BMP #### [place] [address] [place], [place] [address] Total Protein 7.1 G/dL Normal 6.4-8.2 [facility] Comment on above: Performed By: #### C BC, ANEU, MG, ADIFF, GFR, BMP #### [place] [address] [place], [place] [address] Urea nitrogen [Mass/Vol] 24 mg/dL High 7-18 [facility] Comment on above: Performed By: #### C BC, ANEU, MG, ADIFF, GFR, BMP #### [place] [address] [place], [place] [address] LABORATORYOrdered By: SYSTEM SYSTEM on 04-06-2024 Albumin [...] Lactic Acid Lvl 0.8 mmol/L Normal 0.4-2.0 [facility] Comment on above: Performed By: #### C BC, ANEU, MG, ADIFF, GFR, BMP #### [address] [address] LIPon 04-06-2024 Lipase Level 26 U/L Normal 16-77 [facility] Comment on above: Performed By: #### C BC, ANEU, MG, ADIFF, GFR, BMP #### [address] [address] MALBRon 04-06-2024 U Creatinine 21.6 mg/dL Low 39.0-259.0 [facility] Comment on above: Performed By: #### C VFLURV #### [address] [address] U Microalb 1687 mcg/dL Normal [facility] Comment on above: Performed By: #### C VFLURV #### [address] [address] U Ratio Alb/Cre 78 mcg/mg High 0-30 [facility] Comment on above: Performed By: #### C VFLURV #### [place] [address] No Panel Informationon 04-06 Microscopic examination of blood, culture Culture has been received in lab and is no growth to date. Routine cultures are held for 5 days. [facility] Work Phone: UAon 04-06-2024 Color (U) Yellow Normal [facility] Comment on above: Performed By: #### C BC, ANEU, MG, ADIFF, GFR, BMP #### [place] [address] Glucose (U) [Mass/Vol] mg/dL Abnormal Negative [facility] Comment on above: Performed By: #### C BC, ANEU, MG, ADIFF, GFR, BMP #### [place] [address] Ketones Ql (U) 40 mg/dL Abnormal Negative [facility] Comment on above: Performed By: #### C BC, ANEU, MG, ADIFF, GFR, BMP #### [place] [address] UA Appear Slightly Cloudy Abnormal Clear [facility] Comment on above: Performed By: #### C BC, ANEU, MG, ADIFF, GFR, BMP #### [place] [address] UA Blood Small Abnormal Negative [facility] Comment on above: Performed By: #### C BC, ANEU, MG, ADIFF, GFR, BMP #### [place] [address] UA Leuk Est Negative Normal Negative [facility] Comment on above: Performed By: #### C BC, ANEU, MG, ADIFF, GFR, BMP #### [place] [address] UA Nitrite Positive Abnormal Negative [facility] Comment on above: Performed By: #### C BC, ANEU, MG, ADIFF, GFR, BMP #### [address] [address] UA pH 5.5 Normal 5.0 - 8.0 [facility] Comment on above: Performed By: #### C BC, ANEU, MG, ADIFF, GFR, BMP #### [address] [address] UA Protein Negative Normal Negative [facility] Comment on above: Performed By: #### C BC, ANEU, MG, ADIFF, GFR, BMP #### [address] [address] UA Spec Grav >=1.030 Abnormal 1.015-1.025 [facility] Comment on above: Performed By: #### C BC, ANEU, MG, ADIFF, GFR, BMP #### [address] [address] UA Specimen Type Martines Catheter Normal [facility] Comment on above: Performed By: #### C BC, ANEU, MG, ADIFF, GFR, BMP #### [address] [address] UA Urobilinogen 0.2 E.U./dL Normal 0.2-1.0 [facility] Comment on above: Performed By: #### C BC, ANEU, MG, ADIFF, GFR, BMP #### [address] [address] Urobilinogen (U) [Mass/Vol] Negative Normal Negative [facility] Comment on above: Performed By: #### C BC, ANEU, MG, ADIFF, GFR, BMP #### [address] [address] XR CHEST 1 VIEWon 04-06-2024 XR CHEST [...] Date: 04/06/2024 10:36:49 AM Ordering Provider: TRISH TEE Normal [facility] ceFAZolin KIARA [Susc]on 04-06 Methicillin-Resistant Staphylococcus aureus Methicillin-Resistant Staphylococcus aureus [facility] Work Phone: LABORATORYOrdered By: Willow Springer [...] Basophil, Absolute 0.1 10 3/mcL Normal 0.0-0.2 [facility] Comment on above: Performed By: #### C BC, ANEU, MG, ADIFF, GFR, BMP #### [address] [address] Basophils/100 WBC (Bld) 0.8 % Normal 0.0-2.5 [facility] Comment on above: Performed By: #### C BC, ANEU, MG, ADIFF, GFR, BMP #### [address] [address] Eosinophil, Absolute 0.4 10 3/mcL Normal 0.0-0.7 [facility] Comment on above: Performed By: #### C BC, ANEU, MG, ADIFF, GFR, BMP #### [address] [address] Eosinophils/100 WBC (Bld) 5.8 % Normal 0.0-7.0 [facility] Comment on above: Performed By: #### C BC, ANEU, MG, ADIFF, GFR, BMP #### [address] [address] Lymphocyte, Absolute 0.9 10 3/mcL Normal 0.9-4.3 [facility] Comment on above: Performed By: #### C BC, ANEU, MG, ADIFF, GFR, BMP #### [address] [address] Lymphocytes/100 WBC (Bld) 14.4 % Low 20.0-40.0 [facility] Comment on above: Performed By: #### C BC, ANEU, MG, ADIFF, GFR, BMP #### [address] [address] Monocyte, Absolute 0.7 10 3/mcL Normal 0.1-1.4 [facility] Comment on above: Performed By: #### C BC, ANEU, MG, ADIFF, GFR, BMP #### [address] [address] Monocytes/100 WBC (Bld) 11.3 % Normal 2.0-13.0 [facility] Comment on above: Performed By: #### C BC, ANEU, MG, ADIFF, GFR, BMP #### [address] [address] Neutrophils/100 WBC (Bld) 67.7 % Normal 50.0-75.0 [facility] Comment on above: Performed By: #### C BC, ANEU, MG, ADIFF, GFR, BMP #### [address] [address] .GFRon 04-04-2024 GFR 65 ml/min/1.73sqm Normal [facility] Comment on above: Result Comment: GFR Population [...] BC, ANEU, MG, ADIFF, GFR, BMP #### [address] [address] GFR Non- 53 ml/min/1.73sqm Normal [facility] Comment on above: Result Comment: GFR Population [...] BC, ANEU, MG, ADIFF, GFR, BMP #### [address] [address] .MDWon 04-04-2024 Monocyte Distribution Width 22.46 High 0.00-20.00 [facility] Comment on above: Result Comment: For adults in ED, MDW>20.0 may be associated with a higher risk of sepsis during the first 12hrs of hospital admission Performed By: #### C BC, ANEU, MG, ADIFF, GFR, BMP #### [address] [address] .Morphon 04-04-2024 Platelet Estimate Normal Normal [facility] Comment on above: Performed By: #### C BC, ANEU, MG, ADIFF, GFR, BMP #### [place] [address] .NEUABSon 04-04-2024 Neutrophil, Absolute 4.4 10 3/mcL Normal 2.3-8.1 [facility] Comment on above: Performed By: #### C BC, ANEU, MG, ADIFF, GFR, BMP #### [place] [address] .Urinalysis Microscopic (AO) on 04-04-2024 UA Bacteria 2+ /hpf Abnormal [facility] Comment on above: Performed By: #### C BC, ANEU, MG, ADIFF, GFR, BMP #### [place] [address] UA RBC 5-10 Abnormal None Seen [facility] Comment on above: Performed By: #### C BC, ANEU, MG, ADIFF, GFR, BMP #### [place] [address] UA Squam Epithelial 0-5 Abnormal None Seen [facility] Comment on above: Performed By: #### C BC, ANEU, MG, ADIFF, GFR, BMP #### [place] [address] UA WBC LOADED Abnormal None Seen [facility] Comment on above: Performed By: #### C BC, ANEU, MG, ADIFF, GFR, BMP #### [place] [address] CBCon 04-04-2024 Erythrocyte distribution width (RBC) [Ratio] 20.6 % High 11.5-15.5 [facility] Comment on above: Performed By: #### C BC, ANEU, MG, ADIFF, GFR, BMP #### [place] [address] Hematocrit (Bld) [Volume fraction] 41.7 % Normal 40.0-52.0 [facility] Comment on above: Performed By: #### C BC, ANEU, MG, ADIFF, GFR, BMP #### [place] [address] Hgb 13.4 G/dL Normal 13.0-17.5 [facility] Comment on above: Performed By: #### C BC, ANEU, MG, ADIFF, GFR, BMP #### [place] [address] MCH (RBC) [Entitic mass] 27.1 pg Normal 27.0-33.0 [facility] Comment on above: Performed By: #### C BC, ANEU, MG, ADIFF, GFR, BMP #### [place] [address] MCHC 32.1 G/dL Normal 32.0-36.0 [facility] Comment on above: Performed By: #### C BC, ANEU, MG, ADIFF, GFR, BMP #### [place] [address] MCV (RBC) [Entitic vol] 84.6 fL Normal 81.0-100.0 [facility] Comment on above: Performed By: #### C BC, ANEU, MG, ADIFF, GFR, BMP #### [place] [address] Platelet 197 10 3/mcL Normal 150-450 [facility] Comment on above: Performed By: #### C BC, ANEU, MG, ADIFF, GFR, BMP #### [place] [address] Platelet mean volume (Bld) [Entitic vol] 9.8 fL Normal 6.4-10.5 [facility] Comment on above: Performed By: #### C BC, ANEU, MG, ADIFF, GFR, BMP #### [place] [address] RBC 4.93 10 6/mcL Normal 4.50-6.00 [facility] Comment on above: Performed By: #### C BC, ANEU, MG, ADIFF, GFR, BMP #### [address] [address] WBC 6.6 10 3/mcL Normal 4.5-10.8 [facility] Comment on above: Performed By: #### C BC, ANEU, MG, ADIFF, GFR, BMP #### [address] [address] CMPon 04-04-2024 Albumin Level 3.1 G/dL Low 3.4-4.8 [facility] Comment on above: Performed By: #### C BC, ANEU, MG, ADIFF, GFR, BMP #### [address] [address] Albumin/Globulin [Mass ratio] 0.7 {ratio} Low 1.1-2.5 [facility] Comment on above: Performed By: #### C BC, ANEU, MG, ADIFF, GFR, BMP #### [address] [address] ALP [Catalytic activity/Vol] 80 U/L Normal 40-135 [facility] Comment on above: Performed By: #### C BC, ANEU, MG, ADIFF, GFR, BMP #### [address] [address] ALT [Catalytic activity/Vol] 18 U/L Normal 16-63 [facility] Comment on above: Performed By: #### C BC, ANEU, MG, ADIFF, GFR, BMP #### [address] [address] AST [Catalytic activity/Vol] 21 U/L Normal 10-40 [facility] Comment on above: Performed By: #### C BC, ANEU, MG, ADIFF, GFR, BMP #### [address] [address] Bili Total 0.3 mg/dL Normal 0.2-1.0 [facility] Comment on above: Result Comment: Use of this assay is not recommended for patients undergoing treatment with eltrombopag due to the potential for falsely elevated results. Performed By: #### C BC, ANEU, MG, ADIFF, GFR, BMP #### [address] [address] BUN/Creatinine Ratio 20 ratio Normal 7-27 [facility] Comment on above: Performed By: #### C BC, ANEU, MG, ADIFF, GFR, BMP #### [address] [address] Calcium [Mass/Vol] 8.7 mg/dL Normal 8.4-10.2 [facility] Comment on above: Performed By: #### C BC, ANEU, MG, ADIFF, GFR, BMP #### [address] [address] Chloride [Moles/Vol] 104 mmol/L Normal 98-107 [facility] Comment on above: Performed By: #### C BC, ANEU, MG, ADIFF, GFR, BMP #### [place] [address] CO2 [Moles/Vol] 32 mmol/L High 23-31 [facility] Comment on above: Performed By: #### C BC, ANEU, MG, ADIFF, GFR, BMP #### [address] [address] Creatinine [Mass/Vol] 1.33 mg/dL High 0.70-1.30 [facility] Comment on above: Result Comment: Test ing performed on Siemens Dimension EXL analyzer using a modified kinetic Uyen technique. Performed By: #### C BC, ANEU, MG, ADIFF, GFR, BMP #### [address] [address] Electrolyte Balance 3.0 mEq/L Low 4.0-15.0 [facility] Comment on above: Performed By: #### C BC, ANEU, MG, ADIFF, GFR, BMP #### [address] [address] Globulin 4.3 G/dL Normal [facility] Comment on above: Performed By: #### C BC, ANEU, MG, ADIFF, GFR, BMP #### [place] [address] Glucose [Mass/Vol] 123 mg/dL High 80-115 [facility] Comment on above: Performed By: #### C BC, ANEU, MG, ADIFF, GFR, BMP #### [address] [address] Potassium [Moles/Vol] 4.9 mmol/L Normal 3.5-5.1 [facility] Comment on above: Performed By: #### C BC, ANEU, MG, ADIFF, GFR, BMP #### [address] [address] Sodium [Moles/Vol] 139 mmol/L Normal 136-145 [facility] Comment on above: Performed By: #### C BC, ANEU, MG, ADIFF, GFR, BMP #### [address] [address] Total Protein 7.4 G/dL Normal 6.4-8.2 [facility] Comment on above: Performed By: #### C BC, ANEU, MG, ADIFF, GFR, BMP #### [address] [address] Urea nitrogen [Mass/Vol] 26 mg/dL High 7-18 [facility] Comment on above: Performed By: #### C BC, ANEU, MG, ADIFF, GFR, BMP #### [address] [address] [address] ABD/PELVIS W/ IV CONTRAST ONLYon 04-04-2024 [...] 04/04/2024 11:30:06 PM Ordering Provider: POORNIMA Schroeder [facility] LABORATORYOrdered By: April Calixto on 04-04-2024 Appearance [...] 04-04-2024 Lipase Level 44 U/L Normal 16-77 [facility] Comment on above: Performed By: #### C BC, ANEU, MG, ADIFF, GFR, BMP #### [address] [address] UAon 04-04-2024 Color (U) Yellow Normal [facility] Comment on above: Performed By: #### C BC, ANEU, MG, ADIFF, GFR, BMP #### [address] [address] Glucose (U) [Mass/Vol] 500 mg/dL Abnormal Negative [facility] Comment on above: Performed By: #### C BC, ANEU, MG, ADIFF, GFR, BMP #### [address] [address] Ketones Ql (U) Negative Normal Negative [facility] Comment on above: Performed By: #### C BC, ANEU, MG, ADIFF, GFR, BMP #### [address] [address] UA Appear Cloudy Abnormal Clear [facility] Comment on above: Performed By: #### C BC, ANEU, MG, ADIFF, GFR, BMP #### [address] [address] UA Blood Moderate Abnormal Negative [facility] Comment on above: Performed By: #### C BC, ANEU, MG, ADIFF, GFR, BMP #### [place] [address] UA Leuk Est Small Abnormal Negative [facility] Comment on above: Performed By: #### C BC, ANEU, MG, ADIFF, GFR, BMP #### [place] [address] UA Nitrite Positive Abnormal Negative [facility] Comment on above: Performed By: #### C BC, ANEU, MG, ADIFF, GFR, BMP #### [place] [address] UA pH 5.5 Normal 5.0 - 8.0 [facility] Comment on above: Performed By: #### C BC, ANEU, MG, ADIFF, GFR, BMP #### [place] [address] UA Protein Negative Normal Negative [facility] Comment on above: Performed By: #### C BC, ANEU, MG, ADIFF, GFR, BMP #### [place] [address] UA Spec Grav 1.015 Normal 1.015-1.025 [facility] Comment on above: Performed By: #### C BC, ANEU, MG, ADIFF, GFR, BMP #### [place] [address] UA Specimen Type Clean Catch Normal [facility] Comment on above: Performed By: #### C BC, ANEU, MG, ADIFF, GFR, BMP #### [place] [address] UA Urobilinogen 0.2 E.U./dL Normal 0.2-1.0 [facility] Comment on above: Performed By: #### C BC, ANEU, MG, ADIFF, GFR, BMP #### [facility] [address] [place], [place] [address] Urobilinogen (U) [Mass/Vol] Negative Normal Negative [facility] Comment on above: Performed By: #### C BC, ANEU, MG, ADIFF, GFR, BMP #### [facility] [address] [place], [place] [address] [place] RENALon 03-15-2024 US RENAL ORIGINAL EXAMINATION: [...] 03/15/2024 4:55:52 PM Ordering Provider: GAVINO Schroeder [facility] CNOVon 02-17-2024 CNOV Office Visit (URCANT ) JADON ALVAREZ ([id number]) 1955 Date Time Provider Department 02/17/24 8:30 AM SHAR DOWNS URCANT During your visit today, we recorded the following information about you: Eli Bull RN 02/17/2024 8:49 AM Signed Respiratory Practitioner assist with procedure Martines catheter balloon deflated and catheter removed and discarded intact for procedure QUIN Huang Christopher J, MD 02/17/2024 9:05 AM Signed [facility] POST-CYSTOSCOPY INSTRUCTIONS [...] Shar Downs MD 02/17/2024 9:10 AM Signed [facility] PROCEDURE NOTE PATIENT: [...] out performed before the procedure was initiated. Respiratory Practitioner offered and present for procedure. Prior Martines [...] on chart: Compl (more content not included)... Normal [facility] BCIDon 01-22-2024 Acinetobacter elver-baumanii complex Not detected Normal Not Detected [facility] ([place]) Comment on above: Order Comment: amina burnett at [facility] rpt [place], 01/22/2024 12:56:29 EDT//JV Performed By: #### C BC, ZARA, ANEU, BMP, GFR #### [address] [address] Bacteroides fragilis Not detected Normal Not Detected [facility] ([place]) Comment on above: Order Comment: amina burnett at [facility] rpt [place], 01/22/2024 12:56:29 EDT//JV Performed By: #### C BC, ADIFF, ANEU, BMP, GFR #### [address] [address] BCID Comment See Comment Normal [facility] ([place]) Comment on above: Order Comment: amina burnett at [facility] [place] [place], 01/22/2024 12:56:29 EDT//JV [...] C BC, ADIFF, ANEU, BMP, GFR #### [address] [address] Christiana albicans Not detected Normal Not Detected [facility], [facility] ([place]) Comment on above: Order Comment: amina burnett at [facility] rpt [place], 01/22/2024 12:56:29 EDT//JV Performed By: #### C BC, ADIFF, ANEU, BMP, GFR #### Denise [address] [address] Christiana auris Not detected Normal Not Detected [facility] ([place] Comment on above: Order Comment: amina burnett at [facility] rpt [place], 01/22/2024 12:56:29 EDT//JV Performed By: #### C BC, ADIFF, ANEU, BMP, GFR #### [address] [address] Christiana glabrata Not detected Normal Not Detected [facility] ([place]) Comment on above: Order Comment: amina burnett at [facility] rpt [place], 01/22/2024 12:56:29 EDT//JV Performed By: #### C BC, ADIFF, ANEU, BMP, GFR #### Denise [address] [address] Christiana krusei Not detected Normal Not Detected [facility] ([place] Comment on above: Order Comment: amina burnett at [facility] rpt [place], 01/22/2024 12:56:29 EDT//JV Performed By: #### C BC, ADIFF, ANEU, BMP, GFR #### Denise [address] [address] Christiana parapsilosis Not detected Normal Not Detected [facility] ([place]) Comment on above: Order Comment: amina burnett at [facility] rpt [place], 01/22/2024 12:56:29 EDT//JV Performed By: #### C BC, ADIFF, ANEU, BMP, GFR #### Denise [address] [address] [place]a tropicalis Not detected Normal Not Detected [facility] ([place] Comment on above: Order Comment: amina burnett at [facility] rpt [place], 01/22/2024 12:56:29 EDT//JV Performed By: #### C BC, ADIFF, ANEU, BMP, GFR #### Denise [address] [address] Cryptococcus neoformans-gattii Not detected Normal Not Detected [facility] ([place] Comment on above: Order Comment: amina burnett at [facility] rpt [place], 01/22/2024 12:56:29 EDT//JV Performed By: #### C BC, ADIFF, ANEU, BMP, GFR #### Denise [address] [address] CTX-M (ESBL) Not Applicable Normal Not Detected [facility] ([place] Comment on above: Order Comment: amina burnett at [facility] rpt [place], 01/22/2024 12:56:29 EDT//JV Performed By: #### C BC, ADIFF, ANEU, BMP, GFR #### [address] [address] E. Coli Not detected Normal Not Detected [facility] ([place]) Comment on above: Order Comment: amina burnett at [facility] rpt [place], 01/22/2024 12:56:29 EDT//JV Performed By: #### C BC, ADIFF, ANEU, BMP, GFR #### Denise [address] [address] Enterobacter cloacae Complex Not detected Normal Not Detected [facility] ([place] Comment on above: Order Comment: amina burnett at [facility] rpt [place], 01/22/2024 12:56:29 EDT//JV Performed By: #### C BC, ADIFF, ANEU, BMP, GFR #### [address] [address] Enterobacterales Not detected Normal Not Detected [facility] ([place] Comment on above: Order Comment: amina burnett at [facility] rpt [place], 01/22/2024 12:56:29 EDT//JV Performed By: #### C BC, ADIFF, ANEU, BMP, GFR #### [address] [address] Enterococcus faecalis Detected Abnormal Not Detected [facility] ([place]) Comment on above: Order Comment: amina burnett at [facility] rpt [place], 01/22/2024 12:56:29 EDT//JV Performed By: #### C BC, ADIFF, ANEU, BMP, GFR #### [address] [address] Enterococcus faecium Not detected Normal Not Detected [facility] ([place] Comment on above: Order Comment: amina burnett at [facility] rpt [place], 01/22/2024 12:56:29 EDT//JV Performed By: #### C BC, ADIFF, ANEU, BMP, GFR #### [address]ise[address] [address] Haemophilus influenzae Not detected Normal Not Detected [facility] ([place] Comment on above: Order Comment: amina burnett at [facility] rpt [place], 01/22/2024 12:56:29 EDT//JV Performed By: #### C BC, ADIFF, ANEU, BMP, GFR #### [address] [address] IMP (Carbapenemase) Not Applicable Normal Not Detected [facility] ([place] Comment on above: Order Comment: amina burnett at [facility] rpt [place], 01/22/2024 12:56:29 EDT//JV Performed By: #### C BC, ADIFF, ANEU, BMP, GFR #### [address] [address] Klebsiella aerogenes Not detected Normal Not Detected [facility] ([place] Comment on above: Order Comment: amina burnett at [facility] rpt [place], 01/22/2024 12:56:29 EDT//JV Performed By: #### C BC, ADIFF, ANEU, BMP, GFR #### [address] [address] Klebsiella oxytoca Not detected Normal Not Detected [facility] ([place] Comment on above: Order Comment: amina burnett at [facility] [place], 01/22/2024 12:56:29 EDT//JV Performed By: #### C BC, ADIFF, ANEU, BMP, GFR #### [address] [address] Klebsiella pneumoniae group Not detected Normal Not Detected [facility] ([place] Comment on above: Order Comment: amina burnett at [facility] rpt [place], 01/22/2024 12:56:29 EDT//JV Performed By: #### C BC, ADIFF, ANEU, BMP, GFR #### [address] [address] KPC (Carbapenemase) Not Applicable Normal Not Detected [facility] ([place] Comment on above: Order Comment: amina burnett at [facility] rpt [place], 01/22/2024 12:56:29 EDT//JV Performed By: #### C BC, ADIFF, ANEU, BMP, GFR #### Denise [address] [address] Listeria monocytogenes Not detected Normal Not Detected [facility] ([place] Comment on above: Order Comment: amina burnett at [facility] rpt [place], 01/22/2024 12:56:29 EDT//JV Performed By: #### C BC, ADIFF, ANEU, BMP, GFR #### [address] [address] MCR-1 (Colistin Resistance) Not Applicable Normal Not Detected [facility] ([place] Comment on above: Order Comment: amina burnett at [facility] rpt [place], 01/22/2024 12:56:29 EDT//JV Performed By: #### C BC, ADIFF, ANEU, BMP, GFR #### Denise [address] [address] Mec A/C Not Applicable Normal Not Detected [facility] ([place] Comment on above: Order Comment: amina burnett at [facility] rpt [place], 01/22/2024 12:56:29 EDT//JV Performed By: #### C BC, ADIFF, ANEU, BMP, GFR #### Denise [address] [address] Mec A/C-MREJ (MRSA) Not Applicable Normal Not Detected [facility] ([place] Comment on above: Order Comment: amina burnett at [facility] rpt [place], 01/22/2024 12:56:29 EDT//JV Performed By: #### C BC, ADIFF, ANEU, BMP, GFR #### Denise [address] [address] NDM (Carbapenemase) Not Applicable Normal Not Detected [facility] ([place] Comment on above: Order Comment: amina burnett at [facility] rpt [place], 01/22/2024 12:56:29 EDT//JV Performed By: #### C BC, ADIFF, ANEU, BMP, GFR #### Denise [address] [address] Neisseria meningitidis (Encapsalated) Not detected Normal Not Detected [facility] ([place] Comment on above: Order Comment: amina burnett at [facility] rpt [place], 01/22/2024 12:56:29 EDT//JV Performed By: #### C BC, ADIFF, ANEU, BMP, GFR #### Denise [address] [address] OXA-48 like (Carbapenemase) Not Applicable Normal Not Detected [facility] ([place] Comment on above: Order Comment: amina burnett at [facility] rpt [place], 01/22/2024 12:56:29 EDT//JV Performed By: #### C BC, ADIFF, ANEU, BMP, GFR #### Denise [address] [address] Proteus Not detected Normal Not Detected [facility] ([place] Comment on above: Order Comment: amina burnett at [facility] rpt [place], 01/22/2024 12:56:29 EDT//JV Performed By: #### C BC, ADIFF, ANEU, BMP, GFR #### Denise [address] [address] Pseudomonas aeruginosa Not detected Normal Not Detected [facility] ([place] Comment on above: Order Comment: amina burnett at [facility] rpt [place], 01/22/2024 12:56:29 EDT//JV Performed By: #### C BC, ADIFF, ANEU, BMP, GFR #### Denise [address] [address] S. agalactiae Org specific cx Ql (Vag fld) Not detected Normal Not Detected [facility] ([place] Comment on above: Order Comment: amina burnett at [facility] rpt [place], 01/22/2024 12:56:29 EDT//JV Performed By: #### C BC, ADIFF, ANEU, BMP, GFR #### Denise [address] [address] Salmonella species Not detected Normal Not Detected [facility] ([place] Comment on above: Order Comment: amina burnett at [facility] rpt [place], 01/22/2024 12:56:29 EDT//JV Performed By: #### C BC, ADIFF, ANEU, BMP, GFR #### Denise [address] [address] Serratia marcescens Not detected Normal Not Detected [facility] ([place] Comment on above: Order Comment: amina burnett at [facility] rpt [place], 01/22/2024 12:56:29 EDT//JV Performed By: #### C BC, ADIFF, ANEU, BMP, GFR #### Denise [address] [address] Staphylococcus Detected Abnormal Not Detected [facility] ([place] Comment on above: Order Comment: amina burnett at [facility] rpt [place], 01/22/2024 12:56:29 EDT//JV Performed By: #### C BC, ADIFF, ANEU, BMP, GFR #### Denise [address] [address] Staphylococcus aureus Not detected Normal Not Detected [facility] ([place] Comment on above: Order Comment: amina burnett at [facility] rpt [place], 01/22/2024 12:56:29 EDT//JV Result Comment: If S taphylococcus aureus is Detected, an Infectious Disease physician consult is required on identification. Performed By: #### C BC, ADIFF, ANEU, BMP, GFR #### Denise [address] [address] Staphylococcus epidermidis Not detected Normal Not Detected [facility] ([place] Comment on above: Order Comment: amina burnett at [facility] rpt [place], 01/22/2024 12:56:29 EDT//JV Performed By: #### C BC, ADIFF, ANEU, BMP, GFR #### [address] [address] Staphylococcus lugdunensis Not detected Normal Not Detected [facility] ([place] Comment on above: Order Comment: amina burnett at [facility] rpt [place], 01/22/2024 12:56:29 EDT//JV Performed By: #### C BC, ADIFF, ANEU, BMP, GFR #### Denise [address] [address] Stenotrophomonas maltophilia Not detected Normal Not Detected [facility] ([place] Comment on above: Order Comment: amina burnett at [facility] rpt [place], 01/22/2024 12:56:29 EDT//JV Performed By: #### C BC, ADIFF, ANEU, BMP, GFR #### [address] [address] Streptococcus Not detected Normal Not Detected [facility] ([place] Comment on above: Order Comment: amina burnett at [facility] rpt [place], 01/22/2024 12:56:29 EDT//JV Performed By: #### C BC, ADIFF, ANEU, BMP, GFR #### [address] [address] Streptococcus pneumoniae Not detected Normal Not Detected [facility] ([place] Comment on above: Order Comment: amina burnett at [facility] rpt [place], 01/22/2024 12:56:29 EDT//JV Performed By: #### C BC, ADIFF, ANEU, BMP, GFR #### [address] [address] Streptococcus pyogenes Not detected Normal Not Detected [facility] ([place] Comment on above: Order Comment: amina burnett at [facility] rpt [place], 01/22/2024 12:56:29 EDT//JV Performed By: #### C BC, ADIFF, ANEU, BMP, GFR #### [address] [address] Van A/B Not detected Normal Not Detected [facility] ([place] Comment on above: Order Comment: amina burnett at [facility] rpt [place], 01/22/2024 12:56:29 EDT//JV Performed By: #### C BC, ADIFF, ANEU, BMP, GFR #### Denise [address] [address] VIM (Carbapenemase) Not Applicable Normal Not Detected [facility] ([place] Comment on above: Order Comment: amina burnett at [facility] rpt [place], 01/22/2024 12:56:29 EDT//JV Performed By: #### C BC, ADIFF, ANEU, BMP, GFR #### Denise [address] [address] .Auto Diffon 01-21-2024 Basophil, Absolute 0.1 10 3/mcL Normal 0.0-0.2 [facility] ([place]) Comment on above: Performed By: #### C BC, ADIFF, ANEU, MDW, PRO, CMP, GFR ####Denise [address] [address] Basophils/100 WBC (Bld) 0.7 % Normal 0.0-2.5 A [facility] ([place]) Comment on above: Performed By: #### C BC, ADIFF, ANEU, MDW, PRO, CMP, GFR ####Denise [address] [address] Eosinophil, Absolute 0.2 10 3/mcL Normal 0.0-0.4 [facility] ([place]) Comment on above: Performed By: #### C BC, ADIFF, ANEU, MDW, PRO, CMP, GFR ####Denise [address] [place], [place] [address] Eosinophils/100 WBC (Bld) 3.1 % Normal 0.0-7.0 [facility] ([place] Comment on above: Performed By: #### C BC, ADIFF, ANEU, MDW, PRO, CMP, GFR ####Denise [address] [place], [place] [address] Lymphocyte, Absolute 0.7 10 3/mcL Low 0.8-3.9 [facility] ([place]) Comment on above: Performed By: #### C BC, ZARA, LOUIS, MDW, PRO, CMP, GFR ####Denise [address] [place], [place] [address] Lymphocytes/100 WBC (Bld) 9.5 % Low 10.0-50.0 [facility] ([place] Comment on above: Performed By: #### C BC, ZARA, LOUIS, MDW, PRO, CMP, GFR ####Denise [address] [place], [place] [address] Monocyte, Absolute 0.6 10 3/mcL Normal 0.2-1.0 [facility] ([place]) Comment on above: Performed By: #### C JANICE, ZARA, LOUIS, MDW, PRO, CMP, GFR ####Denise [address] [place], [place] [address] Monocytes/100 WBC (Bld) 8.2 % Normal 1.7-13.0 A [facility] ([place]) Comment on above: Performed By: #### C JANICE, ZARA, LOUIS, MDW, PRO, CMP, GFR ####Denise [address] [place], [place] [address] Neutrophils/100 WBC (Bld) 78.5 % Normal 37.0-80.0 [facility] ([place] Comment on above: Performed By: #### C JANICE, LOUIS ZUÑIGA, MDW, PRO, CMP, GFR ####Denise [address] [place], [place] [address] .GFRon 01-21-2024 GFR 71 ml/min/1.73sqm Normal [facility] ([place] Comment on above: Result Comment: GFR Population [...] mL/min/1.73 square meters Performed By: #### C ZARA CAMACHO ANEU, MDW, PRO, CMP, GFR ####Denise [address] [place], [place] [address] GFR Non- 59 ml/min/1.73sqm Normal [facility] ([place] Comment on above: Result Comment: GFR Population [...] mL/min/1.73 square meters Performed By: #### C ZARA CAMACHO ANEU, MDW, PRO, CMP, GFR ####Denise [address] [place], [place] [address] .MDWon 01-21-2024 Monocyte Distribution Width 17.71 Normal 0.00-20.00 [facility] ([place] Comment on above: Result Comment: For ED adult patients suspected of sepsis, MDW<=20.0 does not rule out sepsis or risk of sepsis Performed By: #### C ZARA CAMACHO ANEU, MDW, PRO, CMP, GFR ####Denise [address] [place], [place] [address] .NEUABSon 01-21-2024 Neutrophil, Absolute 6.2 10 3/mcL Normal 2.9-6.2 [facility] ([place]) Comment on above: Performed By: #### C BC, ADIFF, ANEU, MDW, PRO, CMP, GFR ####[address] [address] .Urinalysis Microscopic (AO) on 01-21-2024 UA CA Ox Crystal 2+ /hpf Normal [facility] ([place] Comment on above: Performed By: #### C BC, ADIFF, ANEU, BMP, GFR #### [address] [address] UA Mucous Trace Normal [facility] ([place] Comment on above: Performed By: #### C BC, ADIFF, ANEU, BMP, GFR #### [place] [address] UA RBC 15-25 Abnormal None Seen [facility] ([place] Comment on above: Performed By: #### C BC, ADIFF, ANEU, BMP, GFR #### [place] [address] UA Squam Epithelial 0-5 Abnormal None Seen [facility] ([place]) Comment on above: Performed By: #### C BC, ADIFF, ANEU, BMP, GFR #### [address] [address] UA WBC 0-5 Abnormal None Seen [facility] ([place] Comment on above: Performed By: #### C BC, ADIFF, ANEU, BMP, GFR #### [address] [address] CBCon 01-21-2024 Erythrocyte distribution width (RBC) [Ratio] 17.5 % High 11.5-14.5 [facility] ([place] Comment on above: Performed By: #### C BC, ADIFF, ANEU, MDW, PRO, CMP, GFR ####[place] [address] Hematocrit (Bld) [Volume fraction] 31.3 % Low 42.0-52.0 [facility] ([place] Comment on above: Performed By: #### C BC, ADIFF, ANEU, MDW, PRO, CMP, GFR ####Denise [address] [address] Hgb 10.1 G/dL Low 14.0-18.0 [facility] ([place] Comment on above: Performed By: #### C JANICE, LOUIS ZUÑIGA, MDW, PRO, CMP, GFR ####Denise [address] [place], [place] [address] MCH (RBC) [Entitic mass] 27.5 pg Normal 27.0-31.2 [facility] ([place] Comment on above: Performed By: #### C JANICE, ZARA, L[place]IS, MDW, PRO, CMP, GFR ####Denise [address] [place], [place] [address] MCHC 32.3 G/dL Normal 31.8-35.4 [facility] ([place] Comment on above: Performed By: #### C JANICE, ZARA, L[place]IS, MDW, PRO, CMP, GFR ####Denise [address] [place], [place] [address] MCV (RBC) [Entitic vol] 85.1 fL Normal 80.0-94.0 A [facility] ([place]) Comment on above: Performed By: #### C ZARA CAMACHO ANEU, MDW, PRO, CMP, GFR ####Denise [address] [place], [place] [address] Platelet 169 10 3/mcL Normal 130-400 [facility] ([place] Comment on above: Performed By: #### C ZARA CAMACHO, LOUIS, MDW, PRO, CMP, GFR ####Denisesarbjit [address] [place], [place] [address] Platelet mean volume (Bld) [Entitic vol] 9.5 fL Normal 7.4-10.4 [facility] ([place] Comment on above: Performed By: #### C ZARA CAMACHO, LOUIS, MDW, PRO, CMP, GFR ####Denisesarbjit [address] [place], [place] [address] RBC 3.68 10 6/mcL Low 4.04-6.13 [facility] ([place] Comment on above: Performed By: #### C JANICE, ZARA, LOUIS, MDW, PRO, CMP, GFR ####Denise [address] [place], [place] [address] WBC 7.9 10 3/mcL Normal 4.6-10.8 [facility] ([place] Comment on above: Performed By: #### C JANICE, LOUIS ZUÑIGA, MDW, PRO, CMP, GFR ####Denise [address] [place], [place] [address] CMPon 01-21-2024 Albumin Level 2.6 G/dL Low 3.4-4.8 [facility] ([place] Comment on above: Performed By: #### C JANICE, LOUIS ZUÑIGA, W, PRO, CMP, GFR ####Denise [address] [place], [place] [address] Albumin/Globulin [Mass ratio] 0.7 {ratio} Low 1.1-2.5 [facility] ([place] Comment on above: Performed By: #### C ZARA CAMACHO ANEU, W, PRO, CMP, GFR ####Denise [address] [place], [place] [address] ALP [Catalytic activity/Vol] 73 U/L Normal 40-135 [facility] ([place] Comment on above: Performed By: #### C ZARA CAMACHO ANEU, W, PRO, CMP, GFR ####Denise [address] [place], [place] [address] ALT [Catalytic activity/Vol] 20 U/L Normal 16-63 [facility] ([place] Comment on above: Performed By: #### C ZARA CAMACHO ANEU, W, PRO, CMP, GFR ####Denise [address] [place], [place] [address] AST [Catalytic activity/Vol] 18 U/L Normal 10-40 [facility] ([place] Comment on above: Performed By: #### C ZARA CAMACHO ANEU, MDW, PRO, CMP, GFR ####Denise [address] [place], [place] [address] Bili Total 0.2 mg/dL Normal 0.2-1.0 [facility] ([place] Comment on above: Result Comment: Use of this assay is not recommended for patients undergoing treatment with eltrombopag due to the potential for falsely elevated results. Performed By: #### C BC, ZARA, OLUIS, MDW, PRO, CMP, GFR ####Denise [address] [place], [place] [address] BUN/Creatinine Ratio 17 ratio Normal 7-27 [facility] ([place]) Comment on above: Performed By: #### C BC, ZARA, L[place]IS, MDW, PRO, CMP, GFR ####Denise [address] [place], [place] [address] Calcium [Mass/Vol] 8.8 mg/dL Normal 8.4-10.2 [facility] ([place]) Comment on above: Performed By: #### C BC, ZARA, LOUIS, MDW, PRO, CMP, GFR ####Denise [address] [place], [place] [address] Chloride [Moles/Vol] 103 mmol/L Normal 98-107 [facility] ([place]) Comment on above: Performed By: #### C BC, ZARA, LOUIS, MDW, PRO, CMP, GFR ####Denise [address] [place], [place] [address] CO2 [Moles/Vol] 26 mmol/L Normal 23-31 [facility] ([place] Comment on above: Performed By: #### C BC, ZARA, L[place]IS, MDW, PRO, CMP, GFR ####Denise [address] [place], [place] [address] Creatinine [Mass/Vol] 1.23 mg/dL Normal 0.70-1.30 [facility] ([place]) Comment on above: Performed By: #### C BC, ZARA, LOUIS, MDW, PRO, CMP, GFR ####Denise [address] [place], [place] [address] Electrolyte Balance 8.0 mEq/L Normal 4.0-15.0 [facility] ([place]) Comment on above: Performed By: #### C BC, ZARA, ANEU, MDW, PRO, CMP, GFR ####Denise [address] [place], [place] [address] Globulin 3.6 G/dL Normal [facility] ([place] Comment on above: Performed By: #### C JANICE, LOUIS ZUÑIGA, W, PRO, CMP, GFR ####Denise [address] [place], [place] [address] Glucose [Mass/Vol] 169 mg/dL High 80-115 [facility] ([place]) Comment on above: Performed By: #### C JANICE, LOUIS ZUÑIGA MDW, PRO, CMP, GFR ####Denise [address] [place], [place] [address] Potassium [Moles/Vol] 5.0 mmol/L Normal 3.5-5.1 [facility] ([place]) Comment on above: Performed By: #### C ZARA CAMACHO ANEU, CECILIO, PRO, CMP, GFR ####Denise [address] [place], [place] [address] Sodium [Moles/Vol] 137 mmol/L Normal 136-145 [facility] ([place]) Comment on above: Performed By: #### C ZARA CAMACHO ANEU, W, PRO, CMP, GFR ####Denise [address] [place], [place] [address] Total Protein 6.2 G/dL Low 6.4-8.2 [facility] ([place] Comment on above: Performed By: #### C JANICE, LOUIS ZUÑIGA, W, PRO, CMP, GFR ####Denise [address] [place], [place] [address] Urea nitrogen [Mass/Vol] 21 mg/dL High 7-18 [facility] ([place] Comment on above: Performed By: #### C JANICE, LOUIS ZUÑIGA MDW, PRO, CMP, GFR ####Denise [address] [place], [place] [address] LABORATORYOrdered By: SYSTEM SYSTEM on 01-21-2024 Albumin [...] [facility] Comment on above: Interpretive Data: Chris gutierrez [employer] (CHEST, 1992, 102:312S-25S) recommended therapeutic range for oral anticoagulant therapy is: LOW RISK: Prophylaxis of venous thrombosis INR: 2.0-3.0 Treatment of pulmonary embolism 2.0-3.0 Prevention of systemic embolism 2.0-3.0 HIGH RISK: Mechanical prosthetic valves 2.5-3.5 PT Coag (PPP) [Time] 17.9 s High 9.0 - 1 4.4 seconds AO [facility] LACon 01-21-2024 Lactic Acid Lvl 1.3 mmol/L Normal 0.4-2.0 [facility] ([place]) Comment on above: Performed By: #### C ZARA CAMACHO ANEU, BMP, GFR #### [facility] [address] [place], [place] [address] No Panel Informationon 01-20 Microscopic examination of blood, culture Culture has been received in lab and is no growth to date. Routine cultures are held for 5 days. [facility] Work Phone: PBNPon 01-21-2024 Natriuretic peptide B (Bld) [Mass/Vol] 339 pg/mL High 0-125 [facility] ([place]) Comment on above: Result Comment: NT-p roBNP results of less than 300 pg/mL effectively rules out acute congestive heart failure with 99% negative predictive value. Performed By: #### P BNP ####[facility] [place], [place] [address] PROon 01-21-2024 PT Coag (PPP) [Time] 17.9 s High 9.0-14.4 [facility] ([place]) Comment on above: Performed By: #### C ZARA CAMACHO ANEU, CECILIO, PRO, CMP, GFR ####[facility] [place], [place] [address] PT International Ratio 1.6 Normal [facility] ([place]) Comment on above: Result Comment: [employer] (CHEST, 1992, 102:312S-25S) recommended therapeutic range for oral anticoagulant therapy is: LOW RISK: Prophylaxis of venous thrombosis INR: 2.0-3.0 Treatment of pulmonary embolism 2.0-3.0 Prevention of systemic embolism 2.0-3.0 HIGH RISK: Mechanical prosthetic valves 2.5-3.5 Performed By: #### C ZARA CAMACHO ANEU, CECILIO, PRO, CMP, GFR ####[address] [place], [place] [address] UAon 01-21-2024 Color (U) Yellow Normal [facility] ([place]) Comment on above: Performed By: #### C BC, ADIFF, ANEU, BMP, GFR #### [address] [address] Glucose (U) [Mass/Vol] Negative Normal Negative [facility] ([place]) Comment on above: Performed By: #### C BC, ADIFF, ANEU, BMP, GFR #### [address] [address] Ketones Ql (U) Negative Normal Negative [facility] ([place] Comment on above: Performed By: #### C BC, ADIFF, ANEU, BMP, GFR #### [address] [address] UA Appear Clear Normal Clear [facility] ([place] Comment on above: Performed By: #### C BC, ADIFF, ANEU, BMP, GFR #### [address] [address] UA Blood Large Abnormal Negative [facility] ([place] Comment on above: Performed By: #### C BC, ADIFF, ANEU, BMP, GFR #### [address] [address] UA Leuk Est Negative Normal Negative [facility] ([place] Comment on above: Performed By: #### C BC, ADIFF, ANEU, BMP, GFR #### [address] [address] UA Nitrite Negative Normal Negative [facility] ([place] Comment on above: Performed By: #### C BC, ADIFF, ANEU, BMP, GFR #### [address] [address] UA pH 5.0 Normal 5.0 - 8.0 [facility] ([place] Comment on above: Performed By: #### C BC, ADIFF, ANEU, BMP, GFR #### [address] [address] UA Protein Negative Normal Negative [facility] ([place] Comment on above: Performed By: #### C BC, ADIFF, ANEU, BMP, GFR #### [id number] [place], [place] [address] UA Spec Grav 1.025 Normal 1.015-1.025 [facility] ([place] Comment on above: Performed By: #### C BC, ADIFF, ANEU, BMP, GFR #### [address] [place], [place] [address] UA Specimen Type Martines Catheter Normal [facility] ([place]) Comment on above: Performed By: #### C BC, ADIFF, ANEU, BMP, GFR #### [address] [place], [place] [address] UA Urobilinogen 0.2 E.U./dL Normal 0.2-1.0 [facility] ([place] Comment on above: Performed By: #### C BC, ADIFF, ANEU, BMP, GFR #### [place] [place], [place] [address] Urobilinogen (U) [Mass/Vol] Negative Normal Negative [facility] ([place] Comment on above: Performed By: #### C BC, ADIFF, ANEU, BMP, GFR #### [address] [address] XR CHEST 1 VIEWon 01-21-2024 XR CHEST [...] 01/21/2024 12:24:34 PM Ordering Provider: FERNANDO Schroeder [facility] ([place]) Odilia 01-19-2024 LUCIANO Telephone (URCANT) JADON ALVAREZ ([id number]) 1955 M Date Time Provider Department 01/19/24 SHAR DOWNS During your visit today, we recorded the following information about you: Isela Shea 01/19/2024 10:41 AM [facility] Moved to 02/17/2024 Isela Shea [...] Encounter Status:Closed by ISELA SHEA on 01/19/24 [facility] CNOVon 01-12-2024 CNOV Office Visit (URCANT ) JADON ALVAREZ ([id number]) 1955 M Date Time Provider Department 01/12/24 3:00 PM SHAR DOWNS During your visit today, we recorded the following information about you: Pulse Blood pressure 48/minute 143/74 Shar Downs MD 01/12/2024 3:38 PM Signed [facility] NEW PATIENT CONSULT/HISTORY AND PHYSICAL PATIENT: Jadon Alvarez (68 year old) REFERRING PROVIDER: PCP: Ignacia Reyna, DO Consultation requested by for an opinion regarding Jadon Powersman. My final recommendations will be communicated back [...] Urinary retention. Martines in one week. From [facility]. Prior to that, could only void small [...] none Course: new Associated conditions: BPH, difficult Amrtines insert Diagnostics: none Treatments: none I personally [...] c,ucolpoc,uclarpoc Labor (more content not included)... Normal [facility] .Auto Diffon 11-13-2023 Basophil, Absolute 0.0 10 3/mcL Normal 0.0-0.2 [facility] ([place]) Comment on above: Performed By: #### A BSGEL, ABOGEL #### [address] [address] Basophils/100 WBC (Bld) 0.9 % Normal 0.0-2.5 A [facility] ([place]) Comment on above: Performed By: #### A BSGEL, ABOGEL #### [address] [address] Eosinophil, Absolute 0.1 10 3/mcL Normal 0.0-0.4 [facility] ([place]) Comment on above: Performed By: #### A BSGEL, ABOGEL #### [address] [address] Eosinophils/100 WBC (Bld) 2.1 % Normal 0.0-7.0 [facility] ([place] Comment on above: Performed By: #### A BSGEL, ABOGEL #### [address] [address] Lymphocyte, Absolute 0.9 10 3/mcL Normal 0.8-3.9 [facility] ([place]) Comment on above: Performed By: #### A BSMERISSA, ABOGEL #### [address] [address] Lymphocytes/100 WBC (Bld) 16.6 % Normal 10.0-50.0 [facility] ([place] Comment on above: Performed By: #### A BSGEL, ABOGEL #### [address] [address] Monocyte, Absolute 0.6 10 3/mcL Normal 0.2-1.0 [facility] ([place]) Comment on above: Performed By: #### A BSGEL, ABOGEL #### [address] [address] Monocytes/100 WBC (Bld) 11.9 % Normal 1.7-13.0 A [facility] ([place]) Comment on above: Performed By: #### A BSGEL, ABOGEL #### [address] [address] Neutrophils/100 WBC (Bld) 68.5 % Normal 37.0-80.0 [facility] ([place] Comment on above: Performed By: #### A ALEXANDER RUTHERFORD #### [address] [address] .GFRon 11-13-2023 GFR Non- 44 ml/min/1.73sqm Normal [facility] ([place] Comment on above: Result Comment: GFR Population [...] Performed By: #### A ALEXANDER RUTHERFORD #### [address] [address] GFR 54 ml/min/1.73sqm Normal [facility] ([place] Comment on above: Result Comment: GFR Population [...] Performed By: #### A ALEXANDER RUTHERFORD #### [address] [address] .MDWon 11-13-2023 Monocyte Distribution Width 17.49 Normal 0.00-20.00 [facility] ([place] Comment on above: Result Comment: For ED adult patients suspected of sepsis, MDW<=20.0 does not rule out sepsis or risk of sepsis Performed By: #### A ALEXANDER RUTHERFORD #### [address] [address] .NEUABSon 11-13-2023 Neutrophil, Absolute 3.6 10 3/mcL Normal 2.9-6.2 [facility] ([place]) Comment on above: Performed By: #### A ALEXANDER RUTHERFORD #### [address] [address] BMPon 11-13-2023 BUN/Creatinine Ratio 18 ratio Normal 7-27 [facility] ([place]) Comment on above: Performed By: #### A ALEXANDER RUTHERFORD #### [address] [address] Calcium [Mass/Vol] 8.6 mg/dL Normal 8.4-10.2 [facility] ([place]) Comment on above: Performed By: #### A ALEXANDER RUTHERFORD #### [address] [address] Chloride [Moles/Vol] 107 mmol/L Normal 98-107 [facility] ([place]) Comment on above: Performed By: #### A ALEXANDER RUTHERFORD #### [address] [address] CO2 [Moles/Vol] 29 mmol/L Normal 23-31 [facility] ([place] Comment on above: Performed By: #### A ALEXANDER RUTHERFORD #### [address] [address] Creatinine [Mass/Vol] 1.56 mg/dL High 0.70-1.30 [facility] ([place]) Comment on above: Performed By: #### A ALEXANDER RUTHERFORD #### [address] [address] Electrolyte Balance 8.0 mEq/L Normal 4.0-15.0 [facility] ([place]) Comment on above: Performed By: #### A ALEXANDER RUTHERFORD #### [address] [address] Glucose [Mass/Vol] 170 mg/dL High 80-115 [facility] ([place]) Comment on above: Performed By: #### A ALEXANDER RUTHERFORD #### [address] [address] Potassium [Moles/Vol] 4.8 mmol/L Normal 3.5-5.1 [facility] ([place]) Comment on above: Performed By: #### A ALEXANDER RUTHERFORD #### [address] [address] Sodium [Moles/Vol] 144 mmol/L Normal 136-145 [facility] ([place]) Comment on above: Performed By: #### A ALEXANDER RUTHERFORD #### [address] [address] Urea nitrogen [Mass/Vol] 28 mg/dL High 7-18 [facility] ([place] Comment on above: Performed By: #### A ALEXANDER RUTHREFORD #### [address] [address] CBCon 11-13-2023 Erythrocyte distribution width (RBC) [Ratio] 20.0 % High 11.5-14.5 [facility] ([place] Comment on above: Performed By: #### A ALEXANDER RUTHERFORD #### [address] [address] Hematocrit (Bld) [Volume fraction] 34.6 % Low 42.0-52.0 [facility] ([place] Comment on above: Performed By: #### A ALEXANDER RUTHERFORD #### [address] [address] Hgb 11.1 G/dL Low 14.0-18.0 [facility] ([place] Comment on above: Performed By: #### A ALEXANDER RUTHERFORD #### [address] [address] MCH (RBC) [Entitic mass] 27.6 pg Normal 27.0-31.2 [facility] ([place] Comment on above: Performed By: #### A ALEXANDER RUTHERFORD #### [address] [address] MCHC 32.0 G/dL Normal 31.8-35.4 [facility] ([place] Comment on above: Performed By: #### A KRISH, RUBIOGEL #### [address] [address] MCV (RBC) [Entitic vol] 86.2 fL Normal 80.0-94.0 A [facility] ([place]) Comment on above: Performed By: #### A KRISH, RUBIOGEL #### [place] [address] Platelet 170 10 3/mcL Normal 130-400 [facility] ([place] Comment on above: Performed By: #### A ALEXANDER RUTHERFORD #### [place] [address] Platelet mean volume (Bld) [Entitic vol] 9.4 fL Normal 7.4-10.4 [facility] ([place] Comment on above: Performed By: #### A KRISH, RUBIOGEL #### [place] [address] RBC 4.02 10 6/mcL Low 4.04-6.13 [facility] ([place] Comment on above: Performed By: #### A KRISH, RUBIOGEL #### [place] [address] WBC 5.2 10 3/mcL Normal 4.6-10.8 [facility] ([place] Comment on above: Performed By: #### A RUBIO RUTHERFORDGEL #### [place] [address] LABORATORYOrdered By: SYSTEM SYSTEM on 11-13-2023 Basophil, [...] Routine cultures are held for 5 days. [facility] Work Phone: XR TIBIA/FIBULA 2 VIEWS [...] 11/13/2023 9:57:19 PM Ordering Provider: FERNANDO ZEE Normal [facility] ([place]) Basophil percentageOrdered B y: Louie Anita on 11-03-2023 Chloride [Moles/Vol] 99 mmol/L 98-107 [facility] Glucose [Mass/Vol] 110 mg/dL 74-106 [facility] Comment on above: Fasting Glucose resu lt from 100 to 125 mg/dL suggests IMPAIRED HOMEOSTASIS per A.D.A. criteria. Hemoglobin (Bld) [Mass/Vol] 9.3 g/dL 13.0-16.5 [facility] Potassium [Moles/Vol] 4.1 mmol/L 3.5-5.1 [facility] Sodium [Moles/Vol] 137 mmol/L 136-145 [facility] Hematocrit Auto (Bld) [Volum e fraction]Ordered By: Louie Howard on 11-03-2023 Hematocrit (Bld) [Volume fraction] 32.4 % 40-54 [facility] Laboratory - Chemistry and C hemistry - challengeOrdered By: Louie Howard on 11-03-2023 CO2 [Moles/Vol] 36.0 mmol/L 21.0-32.0 [facility] Urea nitrogen/Creatinine [Mass ratio] 16.9 mg/mg 10-20 [facility] No Panel InformationOrdered By: Louie Howard on 11-03-2023 Estimated Creatinine Clearance Calc 87.11 ml/min [facility] Estimated GFR (MDRD) Amer 71 mL/min >60 [facility] Comment on above: GFR Calc Estimated GFR (MDRD) Non-Af Amer 58 mL/min >60 [facility] Comment on above: Non- GFR Calc Serum or plasma calcium isidro urement (mass/volume)Ordered By: Louie Howard on 11-03-2023 Calcium [Mass/Vol] 9.3 mg/dL 8.5-10.1 [facility] Serum or plasma creatinine m easurement (mass/volume)Ordered By: Louie Howard on 11-03-2023 Creatinine [Mass/Vol] 1.30 mg/dL 0.70-1.30 [facility] Comment on above: The validity of the calculated GFR & GFRAA in patients over 70 years has not been determined. Clinical correlation is essential. Serum or plasma urea nitroge n measurement (mass/volume)Ordered By: Louie Howard on 11-03-2023 Urea nitrogen [Mass/Vol] 22 mg/dL 7-18 [facility] Thin prep Papanicolaou smear with manual screeningOrdered By: Louie Howard on 11-03-2023 Thin prep Papanicolaou smear with manual screening 149 mg/dL 74-106 [facility] Comment on above: MANAGEMENT OF PATIEN T CARE PER NURSING PROTOCOL Thin prep Papanicolaou smear with manual screening 2 5-15 [facility] Basophil percentageOrdered B y: Dale Mack on 11-02-2023 Basophil percentage Not Reportable [facility] Basophils/100 WBC (Bld) 0.6 % 0-1 [facility] Eosinophils/100 WBC (Bld) 4.1 % 0-5 [facility] Lymphocytes/100 WBC (Bld) 17.3 % 19-41 [facility] Monocytes/100 WBC (Bld) 13.4 % 0-10 [facility] Neutrophils/100 WBC (Bld) 64.2 % 47-70 [facility] WBC (Bld) [#/Vol] 5.1 10*3/uL 4.4-11.0 [facility] Determination of erythrocyte mean corpuscular volume (MCV)Ordered By: Dale Mack on 11-02-2023 MCV (RBC) [Entitic vol] 90.8 fL 80-94 [facility] Erythrocyte distribution wid th ratioOrdered By: Dale Mack on 11-02-2023 Erythrocyte distribution width (RBC) [Ratio] 19.0 % 11.6-14.6 [facility] Laboratory - Hematology and Cell countsOrdered By: Dale Mack on 11-02-2023 Erythrocyte distribution width (RBC) [Entitic vol] 60.9 fL 35.1-43.9 [facility] Immature granulocytes/100 WBC (Bld) 0.400 % 0.0-0.9 [facility] Comment on above: IG% - Immature Granu locytes (promyelocytes, myelocytes and metamyelocytes) > 1% indicates that a LEFT SHIFT is Present. MCH (RBC) [Entitic mass] 26.2 pg 27.0-32.0 [facility] MCHC (RBC) [Mass/Vol] 28.8 g/dL 32-36 [facility] Platelet mean volume (Bld) [Entitic vol] 11.3 fL 6.2-12.0 [facility] Platelets bldOrdered By: Dale Mack on 11-02-2023 Platelets (Bld) [#/Vol] 248 10*3/uL 150-450 [facility] RBC Auto (Bld) [#/Vol]Ordere d By: Dale Mack on 11-02-2023 RBC (Bld) [#/Vol] 3.59 10*6/uL 4.6-6.2 [facility] Whole blood hemoglobin A1c/t otal hemoglobin ratio (mass fraction)Ordered By: Dale Mack on 11-02-2023 HbA1c (Bld) [Mass fraction] 5.2 % 3.8-5.6 [facility] Comment on above: Normal < 5.7 % Predi abetic 5.7 - 6.4 % Diabetic >or= 6.5 % Please note range changes. Absolute lymphocyte countOrd ered By: Sommer Xie on 10-29-2023 Lymphocytes Auto (Unsp spec) [#/Vol] 0.96 10*3/uL 0.83-4.51 [facility] Basophil percentageOrdered B y: Sommer Xie on 10-29-2023 Bilirubin [Mass/Vol] 0.70 mg/dL 0.20-1.00 [facility] Comment on above: For patients on eltr ombopag therapy, use of Dimension [place] TBIL is not recommended. Protein [Mass/Vol] 6.3 g/dL 6.4-8.2 [facility] Iron measurement (mass/mass) Ordered By: [place] Ames on 10-29-2023 Iron (Unsp spec) [Mass/Mass] 33 ug/dL 65-175 [facility] Laboratory - Chemistry and C hemistry - challengeOrdered By: Sommer Xie on 10-29-2023 Albumin/Globulin [Mass ratio] 0.7 {ratio} 0.9-2.4 [facility] ALP [Catalytic activity/Vol] 74 U/L 45-117 [facility] ALT [Catalytic activity/Vol] 24 U/L 16-61 [facility] Globulin (S) [Mass/Vol] 3.8 g/dL 2.2-4.2 [facility] Laboratory - Chemistry and C hemistry - challengeOrdered By: [place] Ames on 10-29-2023 Cobalamin (Vitamin B12) [Mass/Vol] 340 pg/mL 211-911 [facility] Ferritin [Mass/Vol] 139 ng/mL 26-388 [facility] Laboratory - Hematology and Cell countsOrdered By: Sommer Xie on 10-29-2023 Nucleated RBC/100 WBC (Bld) [Ratio] 0 % 0-5 [facility] No Panel InformationOrdered By: [place] Ames on 10-29-2023 Folate 18.00 ng/mL 3.1-55.4 [facility] Total Iron Binding Capacity 234 ug/dL 250-450 [facility] Serum or plasma iron saturat ion measurement (mass fraction)Ordered By: [place] Ames on 10-29-2023 Iron saturation [Mass fraction] 14.1 % 15.0-55.0 [facility] Thin prep Papanicolaou smear with manual screeningOrdered By: Sommer Xie on 10-29-2023 Thin prep Papanicolaou smear with manual screening 2.5 g/dL 3.2-5.0 [facility] Thin prep Papanicolaou smear with manual screening 23 U/L 15-37 [facility] Absolute lymphocyte countOrd ered By: Wu Rincon on 10-28-2023 Lymphocytes Auto (Unsp spec) [#/Vol] 0.75 10*3/uL 0.83-4.51 [facility] Automated lymphocyte count a s percentage of total leukocytesOrdered By: Wu Rincon on 10-28-2023 Lymphocytes/100 WBC Auto (Unsp spec) 13.4 % 19-41 [facility] Basophil percentageOrdered B y: Wu Rincon on 10-28-2023 Basophils/100 WBC (Bld) 0.4 % 0-1 [facility] Chloride [Moles/Vol] 108 mmol/L 98-107 [facility] Eosinophils/100 WBC (Bld) 1.8 % 0-5 [facility] Glucose [Mass/Vol] 139 mg/dL 74-106 [facility] Comment on above: Fasting Glucose resu lt greater than or equal to 126 mg/dL suggests DIABETES MELLITUS per A.D.A. criteria. Hemoglobin (Bld) [Mass/Vol] 8.7 g/dL 13.0-16.5 [facility] Monocytes/100 WBC (Bld) 9.3 % 0-10 [facility] Neutrophils (Bld) [#/Vol] 4.2 10*3/uL 2.0-7.7 [facility] Neutrophils/100 WBC (Bld) 74.7 % 47-70 [facility] Potassium [Moles/Vol] 4.7 mmol/L 3.5-5.1 [facility] Sodium [Moles/Vol] 141 mmol/L 136-145 [facility] WBC (Bld) [#/Vol] 5.6 10*3/uL 4.4-11.0 [facility] Determination of erythrocyte mean corpuscular volume (MCV)Ordered By: Wu Rincon on 10-28-2023 MCV (RBC) [Entitic vol] 91.2 fL 80-94 [facility] Erythrocyte distribution wid th ratioOrdered By: Wu Rincon on 10-28-2023 Erythrocyte distribution width (RBC) [Ratio] 18.6 % 11.6-14.6 [facility] Erythrocyte distribution wid th standard deviationOrdered By: Wu Rincon on 10-28-2023 Erythrocyte distribution width (RBC) [Entitic vol] 60.4 fL 35.1-43.9 [facility] Hematocrit Auto (Bld) [Volum e fraction]Ordered By: Wu Rincon on 10-28-2023 Hematocrit (Bld) [Volume fraction] 30.1 % 40-54 [facility] Immature granulocytes/100 WB C Auto (Bld)Ordered By: Wu Rincon on 10-28-2023 Immature granulocytes/100 WBC (Bld) 0.400 % 0.0-0.9 [facility] Comment on above: IG% - Immature Granu locytes (promyelocytes, myelocytes and metamyelocytes) > 1% indicates that a LEFT SHIFT is Present. Laboratory - Chemistry and C hemistry - challengeOrdered By: Wu Rincon on 10-28-2023 CO2 [Moles/Vol] 34.0 mmol/L 21.0-32.0 [facility] Urea nitrogen/Creatinine [Mass ratio] 17.6 mg/mg 10-20 [facility] Laboratory - Hematology and Cell countsOrdered By: Wu Rincon on 10-28-2023 MCH (RBC) [Entitic mass] 26.4 pg 27.0-32.0 [facility] MCHC (RBC) [Mass/Vol] 28.9 g/dL 32-36 [facility] Nucleated RBC/100 WBC (Bld) [Ratio] 0 % 0-5 [facility] Platelet mean volume (Bld) [Entitic vol] 10.6 fL 6.2-12.0 [facility] Platelets (Bld) [#/Vol] 276 10*3/uL 150-450 [facility] No Panel InformationOrdered By: Wu Rincon on 10-28-2023 Estimated Creatinine Clearance Calc 98.18 ml/min [facility] Estimated GFR (MDRD) Amer 78 mL/min >60 [facility] Comment on above: GFR Calc Estimated GFR (MDRD) Non-Af Amer 65 mL/min >60 [facility] Comment on above: Non- GFR Calc Troponin I High Sensitivity 21 pg/mL 3.0-78.0 [facility] Comment on above: Please Note: [place] t Units and Gender Specific Reference Ranges. For more information see Policy Stat Procedure [place] High Sensitivity Troponin (TNIH) and attachments. RBC Auto (Bld) [#/Vol]Ordere d By: Wu Rincon on 10-28-2023 RBC (Bld) [#/Vol] 3.30 10*6/uL 4.6-6.2 [facility] Serum or plasma calcium isidro urement (mass/volume)Ordered By: Wu Rincon on 10-28-2023 Calcium [Mass/Vol] 8.8 mg/dL 8.5-10.1 [facility] Serum or plasma creatinine m easurement (mass/volume)Ordered By: Wu Rincon on 10-28-2023 Creatinine [Mass/Vol] 1.19 mg/dL 0.70-1.30 [facility] Comment on above: The validity of the calculated GFR & GFRAA in patients over 70 years has not been determined. Clinical correlation is essential. Serum or plasma urea nitroge n measurement (mass/volume)Ordered By: Wu Rincon on 10-28-2023 Urea nitrogen [Mass/Vol] 21 mg/dL -18 [facility] Thin prep Papanicolaou smear with manual screeningOrdered By: Wu Rincon on 10-28-2023 Thin prep Papanicolaou smear with manual screening -1 5-15 [facility] LABORATORYOrdered By: Aaliyah Hunt on 10-27-2023 Blood Glucose Testing Reason Routine (10/27/23 7:37 AM) [facility] Work Phone: Glucose [Mass/Vol] 88 mg/dL Normal 82 - 115 mg/dL [facility] Work Phone: CNPNon 10-26-2023 CNPN Telephone (HEMAWS) JADON ALVAREZ ([id number]) 1955 M Date Time Provider Department 10/26/23 DONOVAN EDMONDSON During your visit today, we recorded the following information about you: Bianca Nascimento 10/26/2023 12:44 PM Signed 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 Spoke with son and patient is still in hospital. Scheduled with Dr. Edmondson on 11/04/23. Bianca Nascimento Allergies As of Date: 10/26/2023 (Not on File) Date Reviewed: Never Reviewed Reason for Visit: New Patient [172] Problem List As Of Date: 10/26/2023 (None) Encounter Status:Closed by BIANCA NASCIMENTO on 10/26/23 [facility] LABORATORYOrdered By: Javon Murphy on 10-26-2023 Blood Glucose Testing Reason Routine (10/26/23 8:59 PM) [facility] Work Phone: Glucose [Mass/Vol] 145 mg/dL High 82 - 115 mg/dL [facility] Work Phone: LABORATORYOrdered By: Дмитрий Call on 10-26-2023 Blood Glucose Testing Reason Routine (10/26/23 4:27 PM) [facility] Work Phone: Glucose [Mass/Vol] 166 mg/dL High 82 - 115 mg/dL [facility] Work Phone: .GFRon 10-25-2023 GFR 68 ml/min/1.73sqm Normal [facility] ([place] Comment on above: Result Comment: GFR Population [...] Performed By: #### A ALEXANDER RUTHERFORD #### [place] [address] GFR Non- 56 ml/min/1.73sqm Normal [facility] ([place] Comment on above: Result Comment: GFR Population [...] Performed By: #### A ALEXANDER RUTHERFORD #### [address] [address] [facility] BUN/Creatinine Ratio 17 ratio Normal 7-27 [facility] ([place]) Comment on above: Performed By: #### A ALEXANDER RUTHERFORD #### [address] [address] Calcium [Mass/Vol] 8.4 mg/dL Normal 8.4-10.2 [facility] ([place]) Comment on above: Performed By: #### A ALEXANDER RUTHERFORD #### [address] [address] Chloride [Moles/Vol] 106 mmol/L Normal 98-107 [facility] ([place]) Comment on above: Performed By: #### A ALEXANDER RUTHERFORD #### [address] [address] CO2 [Moles/Vol] 31 mmol/L Normal 23-31 [facility] ([place] Comment on above: Performed By: #### A ALEXANDER RUTHERFORD #### [address] [address] Creatinine [Mass/Vol] 1.27 mg/dL Normal 0.70-1.30 [facility] ([place]) Comment on above: Performed By: #### A ALEXANDER RUTHERFORD #### [address] [address] Electrolyte Balance 5.0 mEq/L Normal 4.0-15.0 [facility] ([place]) Comment on above: Performed By: #### A ALEXANDER RUTHERFORD #### [address] [address] Glucose [Mass/Vol] 145 mg/dL High 80-115 [facility] ([place]) Comment on above: Performed By: #### A ALEXANDER RUTHERFORD #### [address] [address] Potassium [Moles/Vol] 4.7 mmol/L Normal 3.5-5.1 [facility] ([place]) Comment on above: Performed By: #### A ALEXANDER RUTHERFORD #### [address] [address] Sodium [Moles/Vol] 142 mmol/L Normal 136-145 [facility] ([place]) Comment on above: Performed By: #### A ALEXANDER RUTHERFORD #### [address] [address] Urea nitrogen [Mass/Vol] 22 mg/dL High 7-18 [facility] ([place] Comment on above: Performed By: #### A ALEXANDER RUTHERFORD #### [address] [address] LABORATORYOrdered By: SYSTEM SYSTEM on 10-25-2023 Calcium [...] .GFRon 10-21-2023 GFR Non- 48 ml/min/1.73sqm Normal [facility] ([place] Comment on above: Result Comment: GFR Population [...] C BC, ADIFF, ANEU, BMP, GFR #### [address] [address] GFR 59 ml/min/1.73sqm Normal [facility] ([place] Comment on above: Result Comment: GFR Population [...] C BC, ADIFF, ANEU, BMP, GFR #### [address] [address] BMPon 10-21-2023 BUN/Creatinine Ratio 17 ratio Normal 7-27 [facility] ([place]) Comment on above: Performed By: #### C BC, ADIFF, ANEU, BMP, GFR #### [address] [address] Calcium [Mass/Vol] 8.1 mg/dL Low 8.4-10.2 [facility] ([place]) Comment on above: Performed By: #### C BC, ADIFF, ANEU, BMP, GFR #### [address] [address] Chloride [Moles/Vol] 106 mmol/L Normal 98-107 [facility] ([place]) Comment on above: Performed By: #### C BC, ADIFF, ANEU, BMP, GFR #### [address] [address] CO2 [Moles/Vol] 31 mmol/L Normal 23-31 [facility] ([place] Comment on above: Performed By: #### C BC, ADIFF, ANEU, BMP, GFR #### [address] [address] Creatinine [Mass/Vol] 1.45 mg/dL High 0.70-1.30 [facility] ([place]) Comment on above: Performed By: #### C BC, ADIFF, ANEU, BMP, GFR #### [address] [address] Electrolyte Balance 5.0 mEq/L Normal 4.0-15.0 [facility] ([place]) Comment on above: Performed By: #### C BC, ADIFF, ANEU, BMP, GFR #### [address] [address] Glucose [Mass/Vol] 136 mg/dL High 80-115 [facility] ([place]) Comment on above: Performed By: #### C BC, ADIFF, ANEU, BMP, GFR #### [address] [address] Potassium [Moles/Vol] 5.3 mmol/L High 3.5-5.1 [facility] ([place]) Comment on above: Performed By: #### C BC, ADIFF, ANEU, BMP, GFR #### [address] [address] Sodium [Moles/Vol] 142 mmol/L Normal 136-145 [facility] ([place]) Comment on above: Performed By: #### C BC, ADIFF, ANEU, BMP, GFR #### [address] [address] Urea nitrogen [Mass/Vol] 24 mg/dL High 7-18 [facility] ([place] Comment on above: Performed By: #### C BC, ADIFF, ANEU, BMP, GFR #### [address] [address] LABORATORYOrdered By: SYSTEM SYSTEM on 10-21-2023 Calcium [...] Basophil, Absolute 0.0 10 3/mcL Normal 0.0-0.2 [facility] ([place]) Comment on above: Performed By: #### A BSMERISSA, ABOGEL #### [address] [address] Basophils/100 WBC (Bld) 0.6 % Normal 0.0-2.5 A [facility] ([place]) Comment on above: Performed By: #### A BSMERISSA, ABOGEL #### [address] [address] Eosinophil, Absolute 0.2 10 3/mcL Normal 0.0-0.4 [facility] ([place]) Comment on above: Performed By: #### A BSMERISSA ABOGEL #### [address] [address] Eosinophils/100 WBC (Bld) 2.4 % Normal 0.0-7.0 [facility] ([place] Comment on above: Performed By: #### A BSMERISSA ABOGEL #### [address] [address] Lymphocyte, Absolute 1.0 10 3/mcL Normal 0.8-3.9 [facility] ([place]) Comment on above: Performed By: #### A BSMERISSA, ABOGEL #### [address] [address] Lymphocytes/100 WBC (Bld) 13.3 % Normal 10.0-50.0 [facility] ([place] Comment on above: Performed By: #### A BSMERISSA, ABOGEL #### [address] [address] Monocyte, Absolute 0.9 10 3/mcL Normal 0.2-1.0 [facility] ([place]) Comment on above: Performed By: #### A BSMERISSA, ABOGEL #### [address] [address] Monocytes/100 WBC (Bld) 11.8 % Normal 1.7-13.0 A [facility] ([place]) Comment on above: Performed By: #### A BSGEL, ABOGEL #### [address] [address] Neutrophils/100 WBC (Bld) 71.9 % Normal 37.0-80.0 [facility] ([place] Comment on above: Performed By: #### A BSGEL, ABOGEL #### [address] [address] .GFRon 10-20-2023 GFR 74 ml/min/1.73sqm Normal [facility] ([place] Comment on above: Result Comment: GFR Population [...] C BC, ADIFF, ANEU, BMP, GFR ####[address] [place], [place] [address] GFR Non- 61 ml/min/1.73sqm Normal [facility] ([place] Comment on above: Result Comment: GFR Population [...] BC, ADIFF, ANEU, BMP, GFR ####[address] [place], [place] [address] .NEUABSon 10-20-2023 Neutrophil, Absolute 5.4 10 3/mcL Normal 2.9-6.2 [facility] ([place]) Comment on above: Performed By: #### A ALEXANDER RUTHERFORD #### [address] [address] BMPon 10-20-2023 BUN/Creatinine Ratio 20 ratio Normal 7-27 [facility] ([place]) Comment on above: Performed By: #### C BC, ADIFF, ANEU, BMP, GFR ####[address] [place], [place] [address] Calcium [Mass/Vol] 8.0 mg/dL Low 8.4-10.2 [facility] ([place]) Comment on above: Performed By: #### C BC, ADIFF, ANEU, BMP, GFR ####[address] [place], [place] [address] Chloride [Moles/Vol] 106 mmol/L Normal 98-107 [facility] ([place]) Comment on above: Performed By: #### C BC, ADIFF, ANEU, BMP, GFR ####[address] [place], [place] [address] CO2 [Moles/Vol] 32 mmol/L High 23-31 [facility] ([place] Comment on above: Performed By: #### C BC, ADIFF, ANEU, BMP, GFR ####[address] [place], [place] [address] Creatinine [Mass/Vol] 1.18 mg/dL Normal 0.70-1.30 [facility] ([place]) Comment on above: Performed By: #### C BC, ADIFF, ANEU, BMP, GFR ####[address] [place], [place] [address] Electrolyte Balance 5.0 mEq/L Normal 4.0-15.0 [facility] ([place]) Comment on above: Performed By: #### C BC, ADIFF, ANEU, BMP, GFR ####[address] [place], [place] [address] Glucose [Mass/Vol] 119 mg/dL High 80-115 [facility] ([place]) Comment on above: Performed By: #### C BC, ADIFF, ANEU, BMP, GFR ####[address] [place], [place] [address] Potassium [Moles/Vol] 5.4 mmol/L High 3.5-5.1 [facility] ([place]) Comment on above: Performed By: #### C BC, ADIFF, ANEU, BMP, GFR ####[address] [place], [place] [address] Sodium [Moles/Vol] 143 mmol/L Normal 136-145 [facility] ([place]) Comment on above: Performed By: #### C BC, ADIFF, ANEU, BMP, GFR ####[address] [place], [place] [address] Urea nitrogen [Mass/Vol] 24 mg/dL High 7-18 [facility] ([place] Comment on above: Performed By: #### C BC, ADIFF, ANEU, BMP, GFR ####[address] [place], [place] [address] CBCon 10-20-2023 Erythrocyte distribution width (RBC) [Ratio] 17.6 % High 11.5-14.5 [facility] ([place] Comment on above: Performed By: #### A ALEXANDER RUTHERFORD #### [address] [address] Hematocrit (Bld) [Volume fraction] 24.1 % Low 42.0-52.0 [facility] ([place] Comment on above: Performed By: #### A ALEXANDER RUTHERFORD #### [address] [address] Hgb 7.8 G/dL Low 14.0-18.0 [facility] ([place] Comment on above: Performed By: #### A ALEXANDER RUTHERFORD #### [address] [address] MCH (RBC) [Entitic mass] 27.6 pg Normal 27.0-31.2 [facility] ([place] Comment on above: Performed By: #### A ALEXANDER RUTHERFORD #### [place] [address] MCHC 32.4 G/dL Normal 31.8-35.4 [facility] ([place] Comment on above: Performed By: #### A ALEXANDER RUTHERFORD #### [place] [address] MCV (RBC) [Entitic vol] 85.2 fL Normal 80.0-94.0 A [facility] ([place]) Comment on above: Performed By: #### A ALEXANDER RUTHERFORD #### [place] [address] Platelet 306 10 3/mcL Normal 130-400 [facility] ([place] Comment on above: Performed By: #### A ALEXANDER RUTHERFORD #### [place] [address] Platelet mean volume (Bld) [Entitic vol] 8.5 fL Normal 7.4-10.4 [facility] ([place] Comment on above: Performed By: #### A ALEXANDER RUTHERFORD #### [place] [address] RBC 2.83 10 6/mcL Low 4.04-6.13 [facility] ([place] Comment on above: Performed By: #### A ALEXANDER RUTHERFORD #### [place] [address] WBC 7.5 10 3/mcL Normal 4.6-10.8 [facility] ([place] Comment on above: Performed By: #### A ALEXANDER RUTHEROFRD #### [place] [address] LABORATORYOrdered By: SYSTEM SYSTEM on 10-20-2023 Basophil, [...] Basophil, Absolute 0.1 10 3/mcL Normal 0.0-0.2 [facility] ([place] Comment on above: Performed By: #### C BC, ADIFF, ANEU, BMP, GFR #### [address] [address] Basophils/100 WBC (Bld) 0.8 % Normal 0.0-2.5 A [facility] ([place]) Comment on above: Performed By: #### C BC, ADIFF, ANEU, BMP, GFR #### [address] [address] Eosinophil, Absolute 0.1 10 3/mcL Normal 0.0-0.4 [facility] ([place]) Comment on above: Performed By: #### C BC, ADIFF, ANEU, BMP, GFR #### [address] [address] Eosinophils/100 WBC (Bld) 1.7 % Normal 0.0-7.0 [facility] ([place] Comment on above: Performed By: #### C BC, ADIFF, ANEU, BMP, GFR #### [address] [address] Lymphocyte, Absolute 1.3 10 3/mcL Normal 0.8-3.9 [facility] ([place] Comment on above: Performed By: #### C BC, ADIFF, ANEU, BMP, GFR #### [address] [address] Lymphocytes/100 WBC (Bld) 15.3 % Normal 10.0-50.0 [facility] ([place] Comment on above: Performed By: #### C BC, ADIFF, ANEU, BMP, GFR #### [address] [address] Monocyte, Absolute 1.1 10 3/mcL High 0.2-1.0 [facility] ([place]) Comment on above: Performed By: #### C BC, ADIFF, ANEU, BMP, GFR #### [address] [address] Monocytes/100 WBC (Bld) 13.1 % High 1.7-13.0 A [facility] ([place]) Comment on above: Performed By: #### C BC, ADIFF, ANEU, BMP, GFR #### [address] [address] Neutrophils/100 WBC (Bld) 69.1 % Normal 37.0-80.0 [facility] ([place] Comment on above: Performed By: #### C BC, ADIFF, ANEU, BMP, GFR #### [address] [address] .GFRon 10-15-2023 GFR 63 ml/min/1.73sqm Normal [facility] ([place] Comment on above: Result Comment: GFR Population [...] Performed By: #### A ALEXANDER RUTHERFORD #### [address] [address] GFR Non- 52 ml/min/1.73sqm Normal [facility] ([place] Comment on above: Result Comment: GFR Population [...] Performed By: #### A RUBIO RUTHERFORDGEL #### [address] [address] .NEUABSon 10-15-2023 Neutrophil, Absolute 5.8 10 3/mcL Normal 2.9-6.2 [facility] ([place]) Comment on above: Performed By: #### C BC, ADIFF, ANEU, BMP, GFR #### Denise [address] [address] BMPon 10-15-2023 BUN/Creatinine Ratio 18 ratio Normal 7-27 [facility] ([place]) Comment on above: Performed By: #### A ALEXANDER RUTHERFORD #### [address] [address] Calcium [Mass/Vol] 8.0 mg/dL Low 8.4-10.2 [facility] ([place]) Comment on above: Performed By: #### A RUBIO RUTHERFORDGEL #### [address] [address] Chloride [Moles/Vol] 105 mmol/L Normal 98-107 [facility] ([place]) Comment on above: Performed By: #### A KRISH ABOGEL #### [address] [address] CO2 [Moles/Vol] 31 mmol/L Normal 23-31 [facility] ([place] Comment on above: Performed By: #### A BSMERISSA ABOGEL #### [address] [address] Creatinine [Mass/Vol] 1.37 mg/dL High 0.70-1.30 [facility] ([place]) Comment on above: Performed By: #### A BSGEL, ABOGEL #### [address] [address] Electrolyte Balance 7.0 mEq/L Normal 4.0-15.0 [facility] ([place]) Comment on above: Performed By: #### A BSGEL, ABOGEL #### [address] [address] Glucose [Mass/Vol] 104 mg/dL Normal 80-115 [facility] ([place]) Comment on above: Performed By: #### A BSMERISSA, ABOGEL #### [address] [address] Potassium [Moles/Vol] 5.0 mmol/L Normal 3.5-5.1 [facility] ([place]) Comment on above: Performed By: #### A BSGEL, ABOGEL #### [address] [address] Sodium [Moles/Vol] 143 mmol/L Normal 136-145 [facility] ([place]) Comment on above: Performed By: #### A BSMERISSA, ABOGEL #### [address] [address] Urea nitrogen [Mass/Vol] 24 mg/dL High 7-18 [facility] ([place] Comment on above: Performed By: #### A BSMERISSA, ABOGEL #### [address] [address] CBCon 10-15-2023 Erythrocyte distribution width (RBC) [Ratio] 17.8 % High 11.5-14.5 [facility] ([place] Comment on above: Performed By: #### C BC, ADIFF, ANEU, BMP, GFR #### [address] [address] Hematocrit (Bld) [Volume fraction] 23.7 % Low 42.0-52.0 [facility] ([place] Comment on above: Performed By: #### C BC, ADIFF, ANEU, BMP, GFR #### [address] [address] Hgb 7.9 G/dL Low 14.0-18.0 [facility] ([place] Comment on above: Performed By: #### C BC, ADIFF, ANEU, BMP, GFR #### [address] [address] MCH (RBC) [Entitic mass] 28.3 pg Normal 27.0-31.2 [facility] ([place] Comment on above: Performed By: #### C BC, ADIFF, ANEU, BMP, GFR #### [address] [address] MCHC 33.2 G/dL Normal 31.8-35.4 [facility] ([place] Comment on above: Performed By: #### C BC, ADIFF, ANEU, BMP, GFR #### [address] [address] MCV (RBC) [Entitic vol] 85.4 fL Normal 80.0-94.0 A [facility] ([place]) Comment on above: Performed By: #### C BC, ADIFF, ANEU, BMP, GFR #### [address] [address] Platelet 377 10 3/mcL Normal 130-400 [facility] ([place] Comment on above: Performed By: #### C BC, ADIFF, ANEU, BMP, GFR #### [address] [address] Platelet mean volume (Bld) [Entitic vol] 8.4 fL Normal 7.4-10.4 [facility] ([place] Comment on above: Performed By: #### C BC, ADIFF, ANEU, BMP, GFR #### [address] [address] RBC 2.77 10 6/mcL Low 4.04-6.13 [facility] ([place] Comment on above: Performed By: #### C BC, ADIFF, ANEU, BMP, GFR #### [address] [address] WBC 8.4 10 3/mcL Normal 4.6-10.8 [facility] ([place] Comment on above: Performed By: #### C BC, ADIFF, ANEU, BMP, GFR #### [address] [address] [place] [id number] LABORATORYOrdered By: SYSTEM SYSTEM on 10-15-2023 Basophil, [...] Glucose Testing Reason Routine (10/13/23 4:56 PM) [facility] Work Phone: Glucose [Mass/Vol] 121 mg/dL High 82 - 115 mg/dL [facility] Work Phone: LABORATORYOrdered By: Jaquelin Olivo on 10-13-2023 Glucose [Mass/Vol] 120 mg/dL High 82 - 115 mg/dL [facility] Work Phone: Glucose [Mass/Vol] 101 mg/dL Normal 82 - 115 mg/dL [facility] Work Phone: .Auto Diffon 10-12-2023 Basophil, Absolute 0.0 10 3/mcL Normal 0.0-0.3 [facility] ([place]) Comment on above: Performed By: #### C JANIEC, ZARA ANEU, BMP, GFR #### [address] [address] Basophils/100 WBC (Bld) 0.6 % Normal 0.0-2.5 A [facility] ([place]) Comment on above: Performed By: #### C JANICE, ZARA ANEU, BMP, GFR #### [address] [address] Eosinophil, Absolute 0.2 10 3/mcL Normal 0.0-0.7 [facility] ([place]) Comment on above: Performed By: #### C BC, ZARA ANEU, BMP, GFR #### [address] [address] Eosinophils/100 WBC (Bld) 2.3 % Normal 0.0-6.0 [facility] ([place] Comment on above: Performed By: #### C JANICE, LOUIS ZUÑIGA, BMP, GFR #### [address] [address] Lymphocyte, Absolute 0.9 10 3/mcL Normal 0.9-4.3 [facility] ([place]) Comment on above: Performed By: #### C BC, ADIFF, ANEU, BMP, GFR #### [address] [address] Lymphocytes/100 WBC (Bld) 10.2 % Low 20.0-40.0 [facility] ([place] Comment on above: Performed By: #### C BC, ADIFF, ANEU, BMP, GFR #### [address] [address] Monocyte, Absolute 1.2 10 3/mcL Normal 0.1-1.4 [facility] ([place]) Comment on above: Performed By: #### C BC, ADIFF, ANEU, BMP, GFR #### [address] [address] Monocytes/100 WBC (Bld) 14.1 % High 2.0-13.0 A [facility] ([place]) Comment on above: Performed By: #### C BC, ADIFF, ANEU, BMP, GFR #### [address] [address] Neutrophils/100 WBC (Bld) 72.8 % Normal 50.0-75.0 [facility] ([place] Comment on above: Performed By: #### C BC, ADIFF, ANEU, BMP, GFR #### [address] [address] .GFRon 10-12-2023 GFR Non- >60 Normal [facility] ([place] Comment on above: Result Comment: GFR Population [...] C BC, ADIFF, ANEU, BMP, GFR #### [address] [address] GFR >60 Normal [facility] ([place]) Comment on above: Result Comment: GFR Population [...] C BC, ADIFF, ANEU, BMP, GFR #### [address] [address] .NEUABSon 10-12-2023 Neutrophil, Absolute 6.2 10 3/mcL Normal 2.3-8.1 [facility] ([place]) Comment on above: Performed By: #### C BC, ADIFF, ANEU, BMP, GFR #### [address] [address] BMPon 10-12-2023 CO2 [Moles/Vol] 26 mmol/L Normal 22-32 [facility] ([place] Comment on above: Order Comment: notif ied dave Performed By: #### C BC, ADIFF, ANEU, BMP, GFR #### [address] [address] Electrolyte Balance 7.0 mEq/L Normal 4.0-15.0 [facility] ([place]) Comment on above: Order Comment: notif ied dave Performed By: #### C BC, ADIFF, ANEU, BMP, GFR #### [address] [address] BUN/Creatinine Ratio 32.7 ratio High 10.0-22.0 [facility] ([place]) Comment on above: Order Comment: notif ied dave Performed By: #### C BC, ADIFF, ANEU, BMP, GFR #### [address] [address] Calcium [Mass/Vol] 8.3 mg/dL Low 8.7-10.4 [facility] ([place]) Comment on above: Order Comment: notif ied dave Performed By: #### C BC, ADIFF, ANEU, BMP, GFR #### [address] [address] Chloride [Moles/Vol] 108 mmol/L Normal 98-110 [facility] ([place]) Comment on above: Order Comment: notif ied dave Performed By: #### C BC, ADIFF, ANEU, BMP, GFR #### [address] [address] Creatinine [Mass/Vol] 1.07 mg/dL Normal 0.60-1.40 [facility] ([place]) Comment on above: Order Comment: notif ied dave Performed By: #### C BC, ADIFF, ANEU, BMP, GFR #### [address] [address] Glucose [Mass/Vol] 118 mg/dL High 82-115 [facility] ([place]) Comment on above: Order Comment: notif ied dave Performed By: #### C BC, ADIFF, ANEU, BMP, GFR #### [address] [address] Potassium [Moles/Vol] 5.2 mmol/L High 3.5-5.0 [facility] ([place]) Comment on above: Order Comment: notif ied dave Performed By: #### C BC, ADIFF, ANEU, BMP, GFR #### [address] [address] Sodium [Moles/Vol] 141 mmol/L Normal 136-145 [facility] ([place]) Comment on above: Order Comment: notif ied dave Performed By: #### C BC, ADIFF, ANEU, BMP, GFR #### [address] [address] Urea nitrogen [Mass/Vol] 35.0 mg/dL High 8.0-22.0 [facility] ([place] Comment on above: Order Comment: notif ied dave Performed By: #### C BC, ADIFF, ANEU, BMP, GFR #### [address] [address] CBCon 10-12-2023 Erythrocyte distribution width (RBC) [Ratio] 17.3 % High 11.5-15.5 [facility] ([place] Comment on above: Performed By: #### C BC, ADIFF, ANEU, BMP, GFR #### [place] [address] Hematocrit (Bld) [Volume fraction] 23.1 % Low 40.0-52.0 [facility] [facility] ([place]) Comment on above: Performed By: #### C BC, ADIFF, ANEU, BMP, GFR #### [place] [address] Hgb 7.6 G/dL Low 13.0-17.5 [facility]ly [facility], [facility] ([place]) Comment on above: Performed By: #### C BC, ADIFF, ANEU, BMP, GFR #### [address] [address] MCH (RBC) [Entitic mass] 28.6 pg Normal 27.0-33.0 [facility], [facility] ([place]) Comment on above: Performed By: #### C BC, ADIFF, ANEU, BMP, GFR #### [place] [id number] MCHC 32.8 G/dL Normal 32.0-36.0 [facility], [facility] ([place]) Comment on above: Performed By: #### C BC, ADIFF, ANEU, BMP, GFR #### [address] [address] MCV (RBC) [Entitic vol] 87.1 fL Normal 81.0-100.0 A [facility]ly [facility] ([place]) Comment on above: Performed By: #### C BC, ADIFF, ANEU, BMP, GFR #### [place] [id number] [place], [place] [address] Platelet 316 10 3/mcL Normal 150-450 [facility], [facility] ([place] Comment on above: Performed By: #### C BC, ADIFF, ANEU, BMP, GFR #### [address] [address] Platelet mean volume (Bld) [Entitic vol] 9.0 fL Normal 6.4-10.5 [facility], [facility] ([place] Comment on above: Performed By: #### C BC, ADIFF, ANEU, BMP, GFR #### [address] [address] RBC 2.65 10 6/mcL Low 4.50-6.00 [facility], [facility] ([place] Comment on above: Performed By: #### C BC, ADIFF, ANEU, BMP, GFR #### [address] [address] WBC 8.5 10 3/mcL Normal 4.5-10.8 [facility], [facility] ([place] Comment on above: Performed By: #### C BC, ADIFF, ANEU, BMP, GFR #### [address] [address] LABORATORYOrdered By: Jade Carlos on 10-12-2023 Blood Glucose Testing Reason Routine (10/12/23 9:00 PM) [facility] Work Phone: LABORATORYOrdered By: Patty Antoine on 10-12-2023 Blood Glucose Testing Reason Routine (10/12/23 4:35 PM) [facility] Work Phone: LABORATORYOrdered By: Lilli licae on 10-12-2023 Glucose [Mass/Vol] 117 mg/dL [facility] Work Phone: LABORATORYOrdered By: SYSTEM SYSTEM on 10-12-2023 Basophils (Bld) [#/Vol] 0.0 103/mcL Normal 0.0 - 0.3 10^3/mcL Workflow SS Basophils/100 WBC (Bld) 0.6 % Normal 0.0 - 2.5 % AH Workflow SS Calcium [Mass/Vol] 8.3 mg/dL Low 8.7 - 10. 4 mg/dL ADM SS Chloride [Moles/Vol] 108 mmol/L Normal 98 - 11 0 mEq/L ADM SS CO2 [Moles/Vol] 26 mmol/L Normal 22 - 32 mEq/L Chemistry S Creatinine [Mass/Vol] 1.07 mg/dL Normal 0.60 - 1.40 mg/dL ADM SS Electrolyte Balance 7.0 mEq/L Normal 4.0 - 15 .0 mEq/L Chemistry S Eosinophils (Bld) [#/Vol] 0.2 103/mcL Normal 0.0 - 0.7 10^3/mcL Workflow SS Eosinophils/100 WBC (Bld) 2.3 % Normal 0.0 - 6.0 % AH Workflow SS Erythrocyte distribution width (RBC) [Ratio] 17.3 % High 11.5 - 15.5 % AH Workflow SS GFR/1.73 sq M.predicted among blacks [...] 1.6 - 2 .4 mg/dL ADM SS MCH (RBC) [Entitic mass] 28.6 [...] 10-12-2023 Magnesium [Mass/Vol] 2.3 mg/dL Normal 1.6-2.4 [facility] ([place]) Comment on above: Performed By: #### C BC, ADIFF, ANEU, BMP, GFR #### Denise [address] [address] .Auto Diffon 10-11-2023 Basophil, Absolute 0.0 10 3/mcL Normal 0.0-0.3 [facility] ([place]) Comment on above: Performed By: #### A ALEXANDER RUTHERFORD #### [address] [address] Basophils/100 WBC (Bld) 0.5 % Normal 0.0-2.5 A [facility] ([place]) Comment on above: Performed By: #### A ALEXANDER RUTHERFORD #### [address] [address] Eosinophil, Absolute 0.2 10 3/mcL Normal 0.0-0.7 [facility] ([place]) Comment on above: Performed By: #### A ALEXANDER RUTHERFORD #### [address] [address] Eosinophils/100 WBC (Bld) 2.5 % Normal 0.0-6.0 [facility], [facility] ([place]) Comment on above: Performed By: #### A ALEXANDER RUTHERFORD #### [address] [address] Lymphocyte, Absolute 0.9 10 3/mcL Normal 0.9-4.3 [facility] ([place]) Comment on above: Performed By: #### A ALEXANDER RUTHERFORD #### [address] [address] Lymphocytes/100 WBC (Bld) 10.8 % Low 20.0-40.0 [facility], [facility] ([place]) Comment on above: Performed By: #### A ALEXANDER RUTHERFORD #### [address] [address] Monocyte, Absolute 1.0 10 3/mcL Normal 0.1-1.4 [facility] ([place]) Comment on above: Performed By: #### A ALEXANDER RUTHERFORD #### [address] [address] Monocytes/100 WBC (Bld) 12.3 % Normal 2.0-13.0 A [facility] ([place]) Comment on above: Performed By: #### A ALEXANDER RUTHERFORD #### [address] [address] Neutrophils/100 WBC (Bld) 73.9 % Normal 50.0-75.0 [facility], [facility] ([place]) Comment on above: Performed By: #### A ALEXANDER RUTHERFORD #### [address] [address] .GFRon 10-11-2023 GFR >60 Normal [facility] ([place]) Comment on above: Result Comment: GFR [...] Performed By: #### A ALEXANDER RUTHERFORD #### [address] [address] GFR Non- 60 ml/min/1.73sqm Normal [facility], [facility] ([place]) Comment on above: Result Comment: GFR Population [...] Performed By: #### A ALEXANDER RUTHERFORD #### [address] [address] .NEUABSon 10-11-2023 Neutrophil, Absolute 6.0 10 3/mcL Normal 2.3-8.1 [facility] ([place]) Comment on above: Performed By: #### A ALEXANDER RUTHERFORD #### [address] [address] BMPon 10-11-2023 BUN/Creatinine Ratio 30.6 ratio High 10.0-22.0 [facility] ([place]) Comment on above: Performed By: #### A ALEXANDER RUTHERFORD #### [address] [address] Calcium [Mass/Vol] 8.5 mg/dL Low 8.7-10.4 [facility] ([place]) Comment on above: Performed By: #### A ALEXANDER RUTHERFORD #### [address] [address] Chloride [Moles/Vol] 107 mmol/L Normal 98-110 [facility] ([place]) Comment on above: Performed By: #### A ALEXANDER RUTHERFORD #### [address] [address] CO2 [Moles/Vol] 31 mmol/L Normal 22-32 [facility], [facility] ([place] Comment on above: Performed By: #### A ALEXANDER RUTHERFORD #### [address] [address] Creatinine [Mass/Vol] 1.21 mg/dL Normal 0.60-1.40 [facility] ([place]) Comment on above: Performed By: #### A ALEXANDER RUTHERFORD #### [address] [address] Electrolyte Balance 2.0 mEq/L Low 4.0-15.0 [facility] ([place]) Comment on above: Performed By: #### A ALEXANDER RUTHERFORD #### [address] [address] Glucose [Mass/Vol] 111 mg/dL Normal 82-115 [facility] ([place]) Comment on above: Performed By: #### A ALEXANDER RUTHERFORD #### [address] [address] Potassium [Moles/Vol] 4.9 mmol/L Normal 3.5-5.0 [facility] ([place]) Comment on above: Performed By: #### A ALEXANDER RUTHERFORD #### [address] [address] Sodium [Moles/Vol] 140 mmol/L Normal 136-145 [facility] ([place]) Comment on above: Performed By: #### A ALEXANDER RUTHERFORD #### [address] [address] Urea nitrogen [Mass/Vol] 37.0 mg/dL High 8.0-22.0 [facility], [facility] ([place] Comment on above: Performed By: #### A ALEXANDER RUTHERFORD #### [address] [address] CBCon 10-11-2023 Erythrocyte distribution width (RBC) [Ratio] 17.2 % High 11.5-15.5 [facility], [facility] ([place] Comment on above: Performed By: #### A ALEXANDER RUTHERFORD #### [address] [address] Hematocrit (Bld) [Volume fraction] 22.8 % Low 40.0-52.0 [facility], [facility] ([place] Comment on above: Performed By: #### A ALEXANDER RUTHERFORD #### [address] [address] Hgb 7.5 G/dL Low 13.0-17.5 [facility], [facility] ([place] Comment on above: Performed By: #### A ALEXANDER RUTHERFORD #### [address] [address] MCH (RBC) [Entitic mass] 28.9 pg Normal 27.0-33.0 [facility], [facility] ([place] Comment on above: Performed By: #### A ALEXANDER RUTHERFORD #### [address] [address] MCHC 33.0 G/dL Normal 32.0-36.0 [facility], [facility] ([place] Comment on above: Performed By: #### A ALEXANDER RUTHERFORD #### [address] [address] MCV (RBC) [Entitic vol] 87.8 fL Normal 81.0-100.0 A [facility] ([place]) Comment on above: Performed By: #### A ALEXANDER RUTHERFORD #### [address] [address] Platelet 268 10 3/mcL Normal 150-450 [facility], [facility] ([place] Comment on above: Performed By: #### A ALEXANDER RUTHERFORD #### [address] [address] Platelet mean volume (Bld) [Entitic vol] 9.1 fL Normal 6.4-10.5 [facility], [facility] ([place] Comment on above: Performed By: #### A ALEXANDER RUTHERFORD #### [address] [address] RBC 2.59 10 6/mcL Low 4.50-6.00 [facility], [facility] ([place] Comment on above: Performed By: #### A ALEXANDER RUTHERFORD #### [address] [address] WBC 8.1 10 3/mcL Normal 4.5-10.8 [facility], [facility] ([place] Comment on above: Performed By: #### A ALEXANDER RUTHERFORD #### [address] [address] LABORATORYOrdered By: SYSTEM SYSTEM on 10-11-2023 Basophils (Bld) [#/Vol] 0.0 103/mcL Normal 0.0 - 0.3 10^3/mcL Workflow SS Basophils/100 WBC (Bld) 0.5 % Normal 0.0 - 2.5 % Workflow SS Calcium [Mass/Vol] 8.5 mg/dL Low [...] [Vol rate/Area] 60 ml/min/1.73sqm Invalid Interpretation Code Chemistry S Comment [...] 22.8 % Low 40.0 - 52.0 % Workflow SS Hemoglobin (Bld) [Mass/Vol] 7.5 G/dL Low 13.0 - 17.5 G/dL Workflow SS Lymphocytes (Bld) [#/Vol] 0.9 103/mcL Normal 0.9 - 4.3 10^3/mcL Workflow SS Lymphocytes/100 WBC (Bld) 10.8 % Low 20.0 - 40.0 % Workflow SS MCH (RBC) [Entitic mass] 28.9 pg Normal 27.0 - 33.0 pg AH Workflow SS MCHC 33.0 G/dL Normal 32.0 - 36.0 G/dL Workflow SS MCV (RBC) [Entitic vol] 87.8 fL Normal 81.0 - 100.0 fL Workflow SS Monocytes (Bld) [#/Vol] 1.0 103/mcL [...] 4.9 mmol/L Normal 3.5 - 5.0 mEq/L AH ADM SS RBC (Bld) [#/Vol] 2.59 106/mcL [...] 8.1 103/mcL Normal 4.5 - 10.8 10^3/mcL AH Workflow SS .Auto Diffon 10-10-2023 Basophil, Absolute 0.0 10 3/mcL Normal 0.0-0.3 [facility] ([place]) Comment on above: Performed By: #### C BC, ADIFF, ANEU, BMP, GFR #### [address] [address] Basophils/100 WBC (Bld) 0.3 % Normal 0.0-2.5 A [facility] ([place]) Comment on above: Performed By: #### C BC, ADIFF, ANEU, BMP, GFR #### [address] [address] Eosinophil, Absolute 0.2 10 3/mcL Normal 0.0-0.7 [facility] ([place]) Comment on above: Performed By: #### C BC, ADIFF, ANEU, BMP, GFR #### [address] [address] Eosinophils/100 WBC (Bld) 2.1 % Normal 0.0-6.0 [facility], [facility] ([place] Comment on above: Performed By: #### C BC, ADIFF, ANEU, BMP, GFR #### [address] [address] Lymphocyte, Absolute 0.8 10 3/mcL Low 0.9-4.3 [facility] ([place] Comment on above: Performed By: #### C BC, ADIFF, ANEU, BMP, GFR #### [address] [address] Lymphocytes/100 WBC (Bld) 10.1 % Low 20.0-40.0 [facility], [facility] ([place] Comment on above: Performed By: #### C BC, ADIFF, ANEU, BMP, GFR #### [address] [address] Monocyte, Absolute 1.0 10 3/mcL Normal 0.1-1.4 [facility] ([place] Comment on above: Performed By: #### C BC, ADIFF, ANEU, BMP, GFR #### [address] [address] Monocytes/100 WBC (Bld) 12.6 % Normal 2.0-13.0 [facility] ([place]) Comment on above: Performed By: #### C BC, ADIFF, ANEU, BMP, GFR #### [address] [address] Neutrophils/100 WBC (Bld) 74.9 % Normal 50.0-75.0 [facility], [facility] ([place] Comment on above: Performed By: #### C BC, ADIFF, ANEU, BMP, GFR #### [address] [address] .GFRon 10-10-2023 GFR >60 Normal [facility] ([place]) Comment on above: Result Comment: GFR Population [...] C BC, ADIFF, ANEU, BMP, GFR #### [address] [address] GFR Non- >60 Normal [facility], [facility] ([place] Comment on above: Result Comment: GFR Population [...] C BC, ADIFF, ANEU, BMP, GFR #### [address] [address] .Morphon 10-10-2023 Anisocytosis Ql (Bld) 1+ Normal [facility] ([place]) Comment on above: Performed By: #### C BC, ADIFF, ANEU, BMP, GFR #### [address] [address] Ovalocytes 1+ Normal [facility], [facility] ([place] Comment on above: Performed By: #### C BC, ADIFF, ANEU, BMP, GFR #### [address] [address] Platelet Estimate Normal Normal [facility], [facility] ([place] Comment on above: Performed By: #### C BC, ADIFF, ANEU, BMP, GFR #### [address] [address] Poik 1+ Normal [facility], [facility] ([place] Comment on above: Performed By: #### C BC, ADIFF, ANEU, BMP, GFR #### [address] [address] Polychrom 1+ Normal [facility], [facility] ([place] Comment on above: Performed By: #### C BC, ADIFF, ANEU, BMP, GFR #### [address] [address] .NEUABSon 10-10-2023 Neutrophil, Absolute 5.6 10 3/mcL Normal 2.3-8.1 [facility] ([place]) Comment on above: Performed By: #### A ALEXANDER RUTHERFORD #### [address] [address] ABO/Rh (Gel)on 10-10-2023 ABO/Rh Interp Positive Invalid Interpretation Code [facility], [facility] ([place] Comment on above: Order Comment: Order ed by Discern Performed By: #### A ALEXANDER RUTHERFORD #### [address] [address] ABS (Gel)on 10-10-2023 ABSC Interp (Gel) Negative Normal [facility], [facility] ([place] Comment on above: Order Comment: Order ed by Discern Performed By: #### A ALEXANDER RUTHERFORD #### [address] [address] BMPon 10-10-2023 BUN/Creatinine Ratio 30.4 ratio High 10.0-22.0 [facility] ([place]) Comment on above: Performed By: #### C BC, ADIFF, ANEU, BMP, GFR #### [address] [address] Calcium [Mass/Vol] 8.4 mg/dL Low 8.7-10.4 [facility] ([place]) Comment on above: Performed By: #### C BC, ADIFF, ANEU, BMP, GFR #### [address] [address] Chloride [Moles/Vol] 106 mmol/L Normal 98-110 [facility] ([place]) Comment on above: Performed By: #### C BC, ADIFF, ANEU, BMP, GFR #### [place] [id number] CO2 [Moles/Vol] 28 mmol/L Normal 22-32 [facility], [facility] ([place] Comment on above: Performed By: #### C BC, ADIFF, ANEU, BMP, GFR #### [address] [address] Creatinine [Mass/Vol] 1.12 mg/dL Normal 0.60-1.40 [facility] ([place]) Comment on above: Performed By: #### C BC, ADIFF, ANEU, BMP, GFR #### [address] [address] Electrolyte Balance 6.0 mEq/L Normal 4.0-15.0 [facility] ([place]) Comment on above: Performed By: #### C BC, ADIFF, ANEU, BMP, GFR #### [address] [address] Glucose [Mass/Vol] 130 mg/dL High 82-115 [facility] ([place]) Comment on above: Performed By: #### C BC, ADIFF, ANEU, BMP, GFR #### [address] [address] Potassium [Moles/Vol] 4.7 mmol/L Normal 3.5-5.0 [facility] ([place]) Comment on above: Performed By: #### C BC, ADIFF, ANEU, BMP, GFR #### [place] [address] Sodium [Moles/Vol] 140 mmol/L Normal 136-145 [facility] ([place]) Comment on above: Performed By: #### C BC, ADIFF, ANEU, BMP, GFR #### [place] [address] Urea nitrogen [Mass/Vol] 34.0 mg/dL High 8.0-22.0 [facility], [facility] ([place] Comment on above: Performed By: #### C BC, ADIFF, ANEU, BMP, GFR #### [place] [address] CBCon 10-10-2023 Erythrocyte distribution width (RBC) [Ratio] 17.5 % High 11.5-15.5 [facility], [facility] ([place] Comment on above: Performed By: #### C BC, ADIFF, ANEU, BMP, GFR #### [place] [address] Hematocrit (Bld) [Volume fraction] 21.1 % Low 40.0-52.0 [facility], [facility] ([place] Comment on above: Performed By: #### C BC, ADIFF, ANEU, BMP, GFR #### [place] [address] Hgb 6.9 G/dL Critically abnormal 13.0-17.5 [facility], [facility] ([place] Comment on above: Performed By: #### C BC, ADIFF, ANEU, BMP, GFR #### [place] [address] MCH (RBC) [Entitic mass] 28.6 pg Normal 27.0-33.0 [facility], [facility] ([place] Comment on above: Performed By: #### C BC, ADIFF, ANEU, BMP, GFR #### [place] [address] MCHC 32.8 G/dL Normal 32.0-36.0 [facility], [facility] ([place] Comment on above: Performed By: #### C BC, ADIFF, ANEU, BMP, GFR #### [place] [address] MCV (RBC) [Entitic vol] 87.2 fL Normal 81.0-100.0 A [facility] ([place]) Comment on above: Performed By: #### C BC, ADIFF, ANEU, BMP, GFR #### [address] [address] Platelet 242 10 3/mcL Normal 150-450 [facility], [facility] ([place] Comment on above: Performed By: #### C BC, ADIFF, ANEU, BMP, GFR #### [address] [address] Platelet mean volume (Bld) [Entitic vol] 10.0 fL Normal 6.4-10.5 [facility], [facility] ([place] Comment on above: Performed By: #### C BC, ADIFF, ANEU, BMP, GFR #### [address] [address] RBC 2.42 10 6/mcL Low 4.50-6.00 [facility], [facility] ([place] Comment on above: Performed By: #### C BC, ADIFF, ANEU, BMP, GFR #### [address] [address] WBC 7.5 10 3/mcL Normal 4.5-10.8 [facility], [facility] ([place] Comment on above: Performed By: #### C BC, ADIFF, ANEU, BMP, GFR #### [address] [address] HHon 10-10-2023 Hematocrit (Bld) [Volume fraction] 23.1 % Low 40.0-52.0 [facility], [facility] ([place] Comment on above: Performed By: #### H H ####[address] [address] Hgb 7.8 G/dL Low 13.0-17.5 [facility], [facility] ([place] Comment on above: Performed By: #### H H ####[address] [address] Hematocrit (Bld) [Volume fraction] 24.6 % Low 40.0-52.0 [facility], [facility] ([place] Comment on above: Performed By: #### A BSRUBIO CRAVENGEL #### [address] [address] Hgb 8.3 G/dL Low 13.0-17.5 [facility], [facility] ([place] Comment on above: Performed By: #### A KRISH, RUBIOGEL #### [place] [address] LABORATORYOrdered By: SYSTEM SYSTEM on 10-10-2023 Hematocrit (Bld) [Volume fraction] 23.1 % Low 40.0 - 52.0 % Workflow SS Hemoglobin (Bld) [Mass/Vol] 7.8 G/dL Low 13.0 - 17.5 G/dL AH Workflow SS Anisocytosis Ql (Bld) 1+ *NA* (10/10/23 3:36 AM) Invalid Interpretation Code Workflow SS Basophils (Bld) [#/Vol] 0.0 103/mcL [...] 5.6 103/mcL Normal 2.3 - 8.1 10^3/mcL Workflow SS Neutrophils/100 WBC (Bld) 74.9 % Normal 50.0 - 75.0 % Workflow SS Ovalocytes LM Ql (Bld) 1+ *NA* (10/10/23 3:36 AM) Invalid Interpretation Code Workflow SS Platelet mean volume (Bld) [Entitic vol] 10.0 fL Normal 6.4 - 10.5 fL Workflow SS Platelets (Bld) [#/Vol] 242 103/mcL Normal 150 - 450 10^3/mcL Workflow SS Platelets LM Ql (Bld) Normal *NA* (10/10/23 3:36 AM) Invalid Interpretation Code Workflow SS Poikilocytosis LM Ql (Bld) 1+ *NA* (10/10/23 3:36 AM) Invalid Interpretation Code Workflow SS Polychromasia LM Ql (Bld) 1+ *NA* (10/10/23 3:36 AM) Invalid Interpretation Code Workflow SS Potassium [Moles/Vol] 4.7 mmol/L Normal 3.5 - 5.0 mEq/L ADM SS RBC (Bld) [#/Vol] 2.42 106/mcL Low 4.50 - 6.0 0 10^6/mcL Workflow SS Sodium [Moles/Vol] 140 mmol/L Normal 136 - 145 mEq/L ADM SS Urea nitrogen [Mass/Vol] 34.0 mg/dL High 8.0 - 22.0 mg/dL ADM SS Urea nitrogen/Creatinine [Mass ratio] 30.4 ratio High 10.0 - 22.0 ratio ADM SS WBC (Bld) [#/Vol] 7.5 103/mcL Normal 4.5 - 10.8 10^3/mcL Workflow SS LABORATORYOrdered By: Melony Conn on 10-10-2023 ABO and Rh group Nom (Bld) Blood group O Rh(D) positive Invalid Interpretation Code BB Auto SS Blood group antibody screen Ql Negative ABSC (10/10/23 6:15 AM) Normal BB Auto SS RBC Product Ready RBC Ready for Pickup (10/10/23 5:23 AM) Normal BB Manual SS RBC (Product)on 10-10-2023 RBC Product Ready RBC Ready for Pickup Normal [facility] ([place] Comment on above: Performed By: #### A BSMERISSA ABOGEL #### [address] [address] .Auto Diffon 10-09-2023 Basophil, Absolute 0.1 10 3/mcL Normal 0.0-0.3 [facility] ([place]) Comment on above: Performed By: #### C BC, ADIFF, ANEU, BMP, GFR #### [address] [address] Basophils/100 WBC (Bld) 0.6 % Normal 0.0-2.5 A [facility] ([place]) Comment on above: Performed By: #### C BC, ADIFF, ANEU, BMP, GFR #### [address] [address] Eosinophil, Absolute 0.2 10 3/mcL Normal 0.0-0.7 [facility] ([place]) Comment on above: Performed By: #### C BC, ADIFF, ANEU, BMP, GFR #### [address] [address] Eosinophils/100 WBC (Bld) 2.2 % Normal 0.0-6.0 [facility], [facility] ([place] Comment on above: Performed By: #### C BC, ADIFF, ANEU, BMP, GFR #### [address] [address] Lymphocyte, Absolute 0.8 10 3/mcL Low 0.9-4.3 [facility] ([place] Comment on above: Performed By: #### C BC, ADIFF, ANEU, BMP, GFR #### [address] [address] Lymphocytes/100 WBC (Bld) 9.8 % Low 20.0-40.0 [facility], [facility] ([place] Comment on above: Performed By: #### C BC, ADIFF, ANEU, BMP, GFR #### [address] [address] Monocyte, Absolute 1.1 10 3/mcL Normal 0.1-1.4 [facility] ([place]) Comment on above: Performed By: #### C BC, ADIFF, ANEU, BMP, GFR #### [address] [address] Monocytes/100 WBC (Bld) 12.7 % Normal 2.0-13.0 A [facility] ([place]) Comment on above: Performed By: #### C BC, ADIFF, ANEU, BMP, GFR #### [address] [address] Neutrophils/100 WBC (Bld) 74.7 % Normal 50.0-75.0 [facility], [facility] ([place] Comment on above: Performed By: #### C BC, ADIFF, ANEU, BMP, GFR #### [address] [address] .GFRon 10-09-2023 GFR >60 Normal [facility] ([place] Comment on above: Result Comment: GFR Population [...] C BC, ADIFF, ANEU, BMP, GFR #### [address] [address] GFR Non- >60 Normal [facility], [facility] ([place] Comment on above: Result Comment: GFR Population [...] C BC, ADIFF, ANEU, BMP, GFR #### [address] [address] .NEUABSon 10-09-2023 Neutrophil, Absolute 6.2 10 3/mcL Normal 2.3-8.1 [facility] ([place]) Comment on above: Performed By: #### C BC, ADIFF, ANEU, BMP, GFR #### [address] [address] BMPon 10-09-2023 BUN/Creatinine Ratio 26.6 ratio High 10.0-22.0 [facility] ([place] Comment on above: Performed By: #### C BC, ADIFF, ANEU, BMP, GFR #### [address] [address] Calcium [Mass/Vol] 8.2 mg/dL Low 8.7-10.4 [facility] ([place]) Comment on above: Performed By: #### C BC, ADIFF, ANEU, BMP, GFR #### [address] [address] Chloride [Moles/Vol] 107 mmol/L Normal 98-110 [facility] ([place]) Comment on above: Performed By: #### C BC, ADIFF, ANEU, BMP, GFR #### [address] [address] CO2 [Moles/Vol] 31 mmol/L Normal 22-32 [facility], [facility] ([place] Comment on above: Performed By: #### C BC, ADIFF, ANEU, BMP, GFR #### [address] [address] Creatinine [Mass/Vol] 1.09 mg/dL Normal 0.60-1.40 [facility] ([place]) Comment on above: Performed By: #### C BC, ADIFF, ANEU, BMP, GFR #### [address] [address] Electrolyte Balance 4.0 mEq/L Normal 4.0-15.0 [facility] ([place]) Comment on above: Performed By: #### C BC, ADIFF, ANEU, BMP, GFR #### [address] [address] Glucose [Mass/Vol] 121 mg/dL High 82-115 [facility] ([place]) Comment on above: Performed By: #### C BC, ADIFF, ANEU, BMP, GFR #### [address] [address] Potassium [Moles/Vol] 4.7 mmol/L Normal 3.5-5.0 [facility] ([place]) Comment on above: Performed By: #### C BC, ADIFF, ANEU, BMP, GFR #### [address] [address] Sodium [Moles/Vol] 142 mmol/L Normal 136-145 [facility] ([place] Comment on above: Performed By: #### C BC, ADIFF, ANEU, BMP, GFR #### [address] [address] Urea nitrogen [Mass/Vol] 29.0 mg/dL High 8.0-22.0 [facility]ly [facility] ([place]) Comment on above: Performed By: #### C BC, ADIFF, ANEU, BMP, GFR #### [address] [address] CBCon 10-09-2023 Erythrocyte distribution width (RBC) [Ratio] 17.2 % High 11.5-15.5 [facility] ([place]) Comment on above: Performed By: #### C BC, ADIFF, ANEU, BMP, GFR #### [address] [address] Hematocrit (Bld) [Volume fraction] 21.7 % Low 40.0-52.0 [facility] ([place]) Comment on above: Performed By: #### C BC, ADIFF, ANEU, BMP, GFR #### [address] [address] Hgb 7.3 G/dL Low 13.0-17.5 [facility] ([place]) Comment on above: Performed By: #### C BC, ADIFF, ANEU, BMP, GFR #### [place] [id number] MCH (RBC) [Entitic mass] 29.1 pg Normal 27.0-33.0 [facility] ([place]) Comment on above: Performed By: #### C BC, ADIFF, ANEU, BMP, GFR #### [place] [address] MCHC 33.6 G/dL Normal 32.0-36.0 [facility] ([place] Comment on above: Performed By: #### C BC, ADIFF, ANEU, BMP, GFR #### [place] [address] MCV (RBC) [Entitic vol] 86.8 fL Normal 81.0-100.0 A [facility] ([place]) Comment on above: Performed By: #### C BC, ADIFF, ANEU, BMP, GFR #### [address] [address] Platelet 215 10 3/mcL Normal 150-450 [facility] ([place] Comment on above: Performed By: #### C BC, ADIFF, ANEU, BMP, GFR #### [place] [id number] Platelet mean volume (Bld) [Entitic vol] 9.9 fL Normal 6.4-10.5 [facility] ([place] Comment on above: Performed By: #### C BC, ADIFF, ANEU, BMP, GFR #### [place] [id number] RBC 2.50 10 6/mcL Low 4.50-6.00 [facility] ([place] Comment on above: Performed By: #### C BC, ADIFF, ANEU, BMP, GFR #### [address] [address] WBC 8.3 10 3/mcL Normal 4.5-10.8 [facility] ([place] Comment on above: Performed By: #### C BC, ADIFF, ANEU, BMP, GFR #### [address] [address] .Auto Diffon 10-08-2023 Basophil, Absolute 0.1 10 3/mcL Normal 0.0-0.3 [facility] ([place]) Comment on above: Performed By: #### C BC, BMP, HFP, MG, GFR, MORPH, ADIFF, ANEU ####[address] [address] Basophils/100 WBC (Bld) 0.9 % Normal 0.0-2.5 A [facility] ([place]) Comment on above: Performed By: #### C BC, BMP, HFP, MG, GFR, MORPH, ADIFF, ANEU ####[address] [address] Eosinophil, Absolute 0.2 10 3/mcL Normal 0.0-0.7 [facility] ([place]) Comment on above: Performed By: #### C BC, BMP, HFP, MG, GFR, MORPH, ADIFF, ANEU ####[address] [address] Eosinophils/100 WBC (Bld) 2.1 % Normal 0.0-6.0 [facility] ([place] Comment on above: Performed By: #### C BC, BMP, HFP, MG, GFR, MORPH, ADIFF, ANEU ####[address] [address] Lymphocyte, Absolute 0.9 10 3/mcL Normal 0.9-4.3 [facility] ([place]) Comment on above: Performed By: #### C BC, BMP, HFP, MG, GFR, MORPH, ADIFF, ANEU ####[address] [address] Lymphocytes/100 WBC (Bld) 9.4 % Low 20.0-40.0 [facility] ([place] Comment on above: Performed By: #### C BC, BMP, HFP, MG, GFR, MORPH, ADIFF, ANEU ####[address] [address] Monocyte, Absolute 1.4 10 3/mcL Normal 0.1-1.4 [facility] ([place]) Comment on above: Performed By: #### C BC, BMP, HFP, MG, GFR, MORPH, ADIFF, ANEU ####[address] [address] Monocytes/100 WBC (Bld) 15.0 % High 2.0-13.0 A [facility] ([place]) Comment on above: Performed By: #### C BC, BMP, HFP, MG, GFR, MORPH, ADIFF, ANEU ####[address] [address] Neutrophils/100 WBC (Bld) 72.6 % Normal 50.0-75.0 [facility] ([place] Comment on above: Performed By: #### C BC, BMP, HFP, MG, GFR, MORPH, ADIFF, ANEU ####[address] [address] .GFRon 10-08-2023 GFR Non- >60 Normal [facility] ([place]) Comment on above: Result Comment: GFR Population [...] BMP, HFP, MG, GFR, MORPH, ADIFF, ANEU ####[address] [address] GFR >60 Normal [facility] ([place]) Comment on above: Result Comment: GFR Population [...] BMP, HFP, MG, GFR, MORPH, ADIFF, ANEU ####[place] [address] .Morphon 10-08-2023 Anisocytosis Ql (Bld) 1+ Normal [facility] ([place]) Comment on above: Performed By: #### C BC, BMP, HFP, MG, GFR, MORPH, ADIFF, ANEU ####[place] [address] Platelet Estimate Normal Normal [facility] ([place] Comment on above: Performed By: #### C BC, BMP, HFP, MG, GFR, MORPH, ADIFF, ANEU ####[place] [address] .NEUABSon 10-08-2023 Neutrophil, Absolute 6.9 10 3/mcL Normal 2.3-8.1 [facility] ([place]) Comment on above: Performed By: #### C BC, BMP, HFP, MG, GFR, MORPH, ADIFF, ANEU ####[address] [address] BMPon 10-08-2023 BUN/Creatinine Ratio 24.1 ratio High 10.0-22.0 [facility] ([place]) Comment on above: Performed By: #### C BC, BMP, HFP, MG, GFR, MORPH, ADIFF, ANEU ####[place] [address] Calcium [Mass/Vol] 8.5 mg/dL Low 8.7-10.4 [facility] ([place]) Comment on above: Performed By: #### C BC, BMP, HFP, MG, GFR, MORPH, ADIFF, ANEU ####[address] [address] Chloride [Moles/Vol] 108 mmol/L Normal 98-110 [facility] ([place]) Comment on above: Performed By: #### C BC, BMP, HFP, MG, GFR, MORPH, ADIFF, ANEU ####[address] [address] CO2 [Moles/Vol] 27 mmol/L Normal 22-32 [facility] ([place] Comment on above: Performed By: #### C BC, BMP, HFP, MG, GFR, MORPH, ADIFF, ANEU ####[address] [address] Creatinine [Mass/Vol] 1.12 mg/dL Normal 0.60-1.40 [facility] ([place]) Comment on above: Performed By: #### C BC, BMP, HFP, MG, GFR, MORPH, ADIFF, ANEU ####[address] [address] Electrolyte Balance 6.0 mEq/L Normal 4.0-15.0 [facility] ([place]) Comment on above: Performed By: #### C BC, BMP, HFP, MG, GFR, MORPH, ADIFF, ANEU ####[address] [address] Glucose [Mass/Vol] 136 mg/dL High 82-115 [facility] ([place]) Comment on above: Performed By: #### C BC, BMP, HFP, MG, GFR, MORPH, ADIFF, ANEU ####[address] [address] Potassium [Moles/Vol] 5.5 mmol/L High 3.5-5.0 [facility] ([place]) Comment on above: Performed By: #### C BC, BMP, HFP, MG, GFR, MORPH, ADIFF, ANEU ####[address] [address] Sodium [Moles/Vol] 141 mmol/L Normal 136-145 [facility] ([place]) Comment on above: Performed By: #### C BC, BMP, HFP, MG, GFR, MORPH, ADIFF, ANEU ####[place] [address] Urea nitrogen [Mass/Vol] 27.0 mg/dL High 8.0-22.0 [facility] ([place] Comment on above: Performed By: #### C BC, BMP, HFP, MG, GFR, MORPH, ADIFF, ANEU ####[place] [address] CBCon 10-08-2023 Erythrocyte distribution width (RBC) [Ratio] 17.0 % High 11.5-15.5 [facility] ([place] Comment on above: Performed By: #### C BC, BMP, HFP, MG, GFR, MORPH, ADIFF, ANEU ####[place] [address] Hematocrit (Bld) [Volume fraction] 22.5 % Low 40.0-52.0 [facility] ([place] Comment on above: Performed By: #### C BC, BMP, HFP, MG, GFR, MORPH, ADIFF, ANEU ####[place] [address] Hgb 7.5 G/dL Low 13.0-17.5 [facility] ([place] Comment on above: Performed By: #### C BC, BMP, HFP, MG, GFR, MORPH, ADIFF, ANEU ####[place] [address] MCH (RBC) [Entitic mass] 28.8 pg Normal 27.0-33.0 [facility] ([place] Comment on above: Performed By: #### C BC, BMP, HFP, MG, GFR, MORPH, ADIFF, ANEU ####[place] [address] MCHC 33.3 G/dL Normal 32.0-36.0 [facility] ([place] Comment on above: Performed By: #### C BC, BMP, HFP, MG, GFR, MORPH, ADIFF, ANEU ####[place] [address] MCV (RBC) [Entitic vol] 86.4 fL Normal 81.0-100.0 A [facility] ([place]) Comment on above: Performed By: #### C BC, BMP, HFP, MG, GFR, MORPH, ADIFF, ANEU ####[place] [address] Platelet 184 10 3/mcL Normal 150-450 [facility] ([place] Comment on above: Performed By: #### C BC, BMP, HFP, MG, GFR, MORPH, ADIFF, ANEU ####[place] [address] Platelet mean volume (Bld) [Entitic vol] 10.9 fL High 6.4-10.5 [facility] ([place] Comment on above: Performed By: #### C BC, BMP, HFP, MG, GFR, MORPH, ADIFF, ANEU ####[place] [address] RBC 2.61 10 6/mcL Low 4.50-6.00 [facility] ([place] Comment on above: Performed By: #### C BC, BMP, HFP, MG, GFR, MORPH, ADIFF, ANEU ####[place] [address] WBC 9.5 10 3/mcL Normal 4.5-10.8 [facility] ([place] Comment on above: Performed By: #### C BC, BMP, HFP, MG, GFR, MORPH, ADIFF, ANEU ####[place] [address] HFPon 10-08-2023 Bili Indirect 0.4 mg/dL Normal 0.1-10.0 [facility] ([place] Comment on above: Performed By: #### C BC, BMP, HFP, MG, GFR, MORPH, ADIFF, ANEU ####[place] [address] Albumin Level 2.0 G/dL Low 3.2-4.8 [facility] ([place] Comment on above: Performed By: #### C BC, BMP, HFP, MG, GFR, MORPH, ADIFF, ANEU ####[place] [address] Albumin/Globulin [Mass ratio] 0.6 {ratio} Low 0.9-1.6 [facility] ([place] Comment on above: Performed By: #### C BC, BMP, HFP, MG, GFR, MORPH, ADIFF, ANEU ####[place] [address] ALP [Catalytic activity/Vol] 63 U/L Normal 38-126 [facility] ([place] Comment on above: Performed By: #### C BC, BMP, HFP, MG, GFR, MORPH, ADIFF, ANEU ####[place] [address] ALT [Catalytic activity/Vol] 23 U/L Normal 12-55 [facility] ([place] Comment on above: Performed By: #### C BC, BMP, HFP, MG, GFR, MORPH, ADIFF, ANEU ####[place] [address] AST [Catalytic activity/Vol] 32 U/L Normal 8-34 [facility] ([place] Comment on above: Performed By: #### C BC, BMP, HFP, MG, GFR, MORPH, ADIFF, ANEU ####[place] [address] Bili Direct 0.3 mg/dL Normal 0.0-0.4 [facility] ([place] Comment on above: Result Comment: Use of this assay is not recommended for patients undergoing treatment with eltrombopag due to the potential for falsely elevated results. Performed By: #### C BC, BMP, HFP, MG, GFR, MORPH, ADIFF, ANEU ####[place] [address] Bili Total 0.70 mg/dL Normal 0.20-1.20 [facility] ([place] Comment on above: Result Comment: Use of this assay is not recommended for patients undergoing treatment with eltrombopag due to the potential for falsely elevated results. Performed By: #### C BC, BMP, HFP, MG, GFR, MORPH, ADIFF, ANEU ####[place] [id number] [address] [place] [address] Globulin 3.1 G/dL Normal 1.5-3.8 [facility] ([place] Comment on above: Performed By: #### C BC, BMP, HFP, MG, GFR, MORPH, ADIFF, ANEU ####[address] [address] Total Protein 5.1 G/dL Low 5.7-8.2 [facility] ([place] Comment on above: Result Comment: No te - New Reference Range in effect 20 Performed By: #### C BC, BMP, HFP, MG, GFR, MORPH, ADIFF, ANEU ####[address] [address] HHon 10-08-2023 Hematocrit (Bld) [Volume fraction] 22.7 % Low 40.0-52.0 [facility] ([place] Comment on above: Performed By: #### A ALEXANDER RUTHERFORD #### [address] [address] Hgb 7.4 G/dL Low 13.0-17.5 [facility] ([place] Comment on above: Performed By: #### A ALEXANDER RUTHERFORD #### [address] [address] Hematocrit (Bld) [Volume fraction] 21.2 % Low 40.0-52.0 [facility] ([place] Comment on above: Performed By: #### H H ####[address] [address] Hgb 7.2 G/dL Low 13.0-17.5 [facility] ([place]) Comment on above: Performed By: #### H H ####[address] [address] Hematocrit (Bld) [Volume fraction] 21.7 % Low 40.0-52.0 [facility] ([place] Comment on above: Performed By: #### A ALEXANDER RUTHERFORD #### [address] [address] Hgb 7.1 G/dL Low 13.0-17.5 [facility] ([place] Comment on above: Performed By: #### A ALEXANDER RUTHERFORD #### [facility] [address] [place] [address] Marco 10-08-2023 Potassium [Moles/Vol] 4.9 mmol/L Normal 3.5-5.0 [facility] ([place]) Comment on above: Performed By: #### K ####[facility] [place] [address] LABORATORYOrdered By: SYSTEM SYSTEM on 10-08-2023 Anisocytosis Ql (Bld) 1+ *NA* (10/08/23 5:37 AM) Invalid Interpretation Code Workflow SS Platelets LM Ql (Bld) Normal [...] 23 U/L Normal 12 - 55 U/L ADM SS AST [Catalytic activity/Vol] 32 U/L [...] - 2 .4 mg/dL AH ADM SS Protein [Mass/Vol] 5.1 G/dL Low 5.7 - 8.2 G/dL AH ADM SS Comment on above: Interpretive Data: * *Note - New Reference Range in effect 20 MGon 10-08-2023 Magnesium [Mass/Vol] 2.2 mg/dL Normal 1.6-2.4 [facility] ([place]) Comment on above: Performed By: #### C BC, BMP, HFP, MG, GFR, MORPH, ADIFF, ANEU ####[place] [address] .Auto Diffon 10-07-2023 Basophil, Absolute 0.0 10 3/mcL Normal 0.0-0.2 [facility] ([place]) Comment on above: Performed By: #### B MP, MG, GFR, CBC, ADIFF, ANEU ####[address] [address] Basophils/100 WBC (Bld) 0.4 % Normal 0.0-2.5 A [facility] ([place]) Comment on above: Performed By: #### B MP, MG, GFR, CBC, ADIFF, ANEU ####[address] [place], [place] [address] Eosinophil, Absolute 0.1 10 3/mcL Normal 0.0-0.4 [facility] ([place]) Comment on above: Performed By: #### B MP, MG, GFR, CBC, ADIFF, ANEU ####[address] [place], [place] [address] Eosinophils/100 WBC (Bld) 1.1 % Normal 0.0-7.0 [facility] ([place] Comment on above: Performed By: #### B MP, MG, GFR, CBC, ADIFF, ANEU ####[address] [place] [place], [place] [address] Lymphocyte, Absolute 0.8 10 3/mcL Normal 0.8-3.9 [facility] ([place]) Comment on above: Performed By: #### B MP, MG, GFR, CBC, ADIFF, ANEU ####[address] [place], [place] [address] Lymphocytes/100 WBC (Bld) 11.5 % Normal 10.0-50.0 [facility] ([place] Comment on above: Performed By: #### B MP, MG, GFR, CBC, ADIFF, ANEU ####[address] [place], [place] [address] Monocyte, Absolute 1.1 10 3/mcL High 0.2-1.0 [facility] ([place]) Comment on above: Performed By: #### B MP, MG, GFR, CBC, ADIFF, ANEU ####[address] [place], [place] [address] Monocytes/100 WBC (Bld) 14.6 % High 1.7-13.0 A [facility] ([place]) Comment on above: Performed By: #### B MP, MG, GFR, CBC, ADIFF, ANEU ####[address] [place], [place] [address] Neutrophils/100 WBC (Bld) 72.4 % Normal 37.0-80.0 [facility] ([place] Comment on above: Performed By: #### B MP, MG, GFR, CBC, ADIFF, ANEU ####[address] [place], [place] [address] .GFRon 10-07-2023 GFR Non- 53 ml/min/1.73sqm Normal [facility] ([place] Comment on above: Result Comment: GFR Population [...] CBC, ADIFF, ANEU ####[facility] [place], [place] [address] GFR 64 ml/min/1.73sqm Normal [facility] ([place] Comment on above: Result Comment: GFR Population [...] B MP, MG, GFR, CBC, ADIFF, ANEU ####[place] [address] [place], [place] [address] .NEUABSon 10-07-2023 Neutrophil, Absolute 5.3 10 3/mcL Normal 2.9-6.2 [facility] ([place]) Comment on above: Performed By: #### B MP, MG, GFR, CBC, ADIFF, ANEU ####[place] [address] [place], [place] [address] ABO/Rh (Gel)on 10-07-2023 ABO/Rh Interp Positive Invalid Interpretation Code [facility] ([place] Comment on above: Performed By: #### C BC, ADIFF, ANEU, BMP, GFR #### [address] [address] ABS (Gel)on 10-07-2023 ABSC Interp (Gel) Negative Normal [facility] ([place] Comment on above: Performed By: #### C BC, ADIFF, ANEU, BMP, GFR #### [place] [address] [place], [place] [address] BMPon 10-07-2023 BUN/Creatinine Ratio 21 ratio Normal 7-27 [facility] ([place]) Comment on above: Performed By: #### B MP, MG, GFR, CBC, ADIFF, ANEU ####[address] [place], [place] [address] Calcium [Mass/Vol] 8.0 mg/dL Low 8.4-10.2 [facility] ([place]) Comment on above: Performed By: #### B MP, MG, GFR, CBC, ADIFF, ANEU ####[address] [place], [place] [address] Chloride [Moles/Vol] 105 mmol/L Normal 98-107 [facility] ([place]) Comment on above: Performed By: #### B MP, MG, GFR, CBC, ADIFF, ANEU ####[address] [place], [place] [address] CO2 [Moles/Vol] 31 mmol/L Normal 23-31 [facility] ([place] Comment on above: Performed By: #### B MP, MG, GFR, CBC, ADIFF, ANEU ####[address] [place], [place] [address] Creatinine [Mass/Vol] 1.35 mg/dL High 0.70-1.30 [facility] ([place]) Comment on above: Performed By: #### B MP, MG, GFR, CBC, ADIFF, ANEU ####[address] [place], [place] [address] Electrolyte Balance 6.0 mEq/L Normal 4.0-15.0 [facility] ([place]) Comment on above: Performed By: #### B MP, MG, GFR, CBC, ADIFF, ANEU ####[address] [place], [place] [address] Glucose [Mass/Vol] 148 mg/dL High 80-115 [facility] ([place]) Comment on above: Performed By: #### B MP, MG, GFR, CBC, ADIFF, ANEU ####[address] [place], [place] [address] Potassium [Moles/Vol] 4.9 mmol/L Normal 3.5-5.1 [facility] ([place]) Comment on above: Performed By: #### B MP, MG, GFR, CBC, ADIFF, ANEU ####[address] [place], [place] [address] Sodium [Moles/Vol] 142 mmol/L Normal 136-145 [facility] ([place]) Comment on above: Performed By: #### B MP, MG, GFR, CBC, ADIFF, ANEU ####[address] [place], [place] [address] Urea nitrogen [Mass/Vol] 28 mg/dL High 7-18 [facility] ([place] Comment on above: Performed By: #### B MP, MG, GFR, CBC, ADIFF, ANEU ####[address] [place], [place] [address] CBCon 10-07-2023 Erythrocyte distribution width (RBC) [Ratio] 17.1 % High 11.5-14.5 [facility] ([place] Comment on above: Performed By: #### B MP, MG, GFR, CBC, ADIFF, ANEU ####[address] [place], [place] [address] Hematocrit (Bld) [Volume fraction] 19.5 % Low 42.0-52.0 [facility] ([place] Comment on above: Performed By: #### B MP, MG, GFR, CBC, ADIFF, ANEU ####[address] [place], [place] [address] Hgb 6.5 G/dL Critically abnormal 14.0-18.0 [facility] ([place] Comment on above: Performed By: #### B MP, MG, GFR, CBC, ADIFF, ANEU ####[address] [place], [place] [address] MCH (RBC) [Entitic mass] 29.0 pg Normal 27.0-31.2 [facility] ([place] Comment on above: Performed By: #### B MP, MG, GFR, CBC, ADIFF, ANEU ####[address] [place], [place] [address] MCHC 33.3 G/dL Normal 31.8-35.4 [facility] ([place] Comment on above: Performed By: #### B MP, MG, GFR, CBC, ADIFF, ANEU ####[address] [place], [place] [address] MCV (RBC) [Entitic vol] 87.1 fL Normal 80.0-94.0 A [facility] ([place]) Comment on above: Performed By: #### B MP, MG, GFR, CBC, ADIFF, ANEU ####[address] [place], [place] [address] Platelet 147 10 3/mcL Normal 130-400 [facility] ([place] Comment on above: Performed By: #### B MP, MG, GFR, CBC, ADIFF, ANEU ####[address] [place], [place] [address] Platelet mean volume (Bld) [Entitic vol] 10.4 fL Normal 7.4-10.4 [facility] ([place] Comment on above: Performed By: #### B MP, MG, GFR, CBC, ADIFF, ANEU ####[address] [place], [place] [address] RBC 2.24 10 6/mcL Low 4.04-6.13 [facility] ([place] Comment on above: Performed By: #### B MP, MG, GFR, CBC, ADIFF, ANEU ####[address] [place], [place] [address] WBC 7.4 10 3/mcL Normal 4.6-10.8 [facility] ([place] Comment on above: Performed By: #### B MP, MG, GFR, CBC, ADIFF, ANEU ####[address] [place], [place] [address] HHon 10-07-2023 Hematocrit (Bld) [Volume fraction] 21.7 % Low 40.0-52.0 [facility] ([place] Comment on above: Performed By: #### H H ####[address] [address] Hgb 7.4 G/dL Low 13.0-17.5 [facility] ([place] Comment on above: Performed By: #### H H ####[place] [id number] [place] [address] LABORATORYOrdered By: Abraham Newberry on 10-07-2023 Blood Glucose Testing Reason Routine (10/07/23 11:49 AM) [facility] Work Phone: Glucose [Mass/Vol] 157 mg/dL High 82 - 115 mg/dL [facility] Work Phone: Blood Glucose Testing Reason Routine (10/07/23 7:41 AM) [facility] Work Phone: Glucose [Mass/Vol] 164 mg/dL High 82 - 115 mg/dL [facility] Work Phone: LABORATORYOrdered By: Liberty Manning [...] 10-07-2023 Magnesium [Mass/Vol] 2.2 mg/dL Normal 1.8-2.4 [facility] ([place]) Comment on above: Performed By: #### B MP, MG, GFR, CBC, ADIFF, ANEU ####[address] [place], [place] [address] RBC (Product)on 10-07-2023 RBC Product Ready RBC Ready for Pickup Normal [facility] ([place] Comment on above: Performed By: #### R BCP #### [facility] [address] [place] [address] .Auto Diffon 10-06-2023 Basophil, Absolute 0.0 10 3/mcL Normal 0.0-0.2 [facility] ([place]) Comment on above: Performed By: #### G FR, CBC, ADIFF, ANEU, BMP, MG ####[address] [place], [place] [address] Basophils/100 WBC (Bld) 0.4 % Normal 0.0-2.5 A [facility] ([place]) Comment on above: Performed By: #### G FR, CBC, ADIFF, ANEU, BMP, MG ####[address] [place], [place] [address] Eosinophil, Absolute 0.1 10 3/mcL Normal 0.0-0.4 [facility] ([place]) Comment on above: Performed By: #### G FR, CBC, ADIFF, ANEU, BMP, MG ####[address] [place], [place] [address] Eosinophils/100 WBC (Bld) 1.2 % Normal 0.0-7.0 [facility] ([place] Comment on above: Performed By: #### G FR, CBC, ADIFF, ANEU, BMP, MG ####[address] [place], [place] [address] Lymphocyte, Absolute 0.9 10 3/mcL Normal 0.8-3.9 [facility] ([place]) Comment on above: Performed By: #### G FR, CBC, ADIFF, ANEU, BMP, MG ####[address] [place], [place] [address] Lymphocytes/100 WBC (Bld) 11.3 % Normal 10.0-50.0 [facility] ([place] Comment on above: Performed By: #### G FR, CBC, ADIFF, ANEU, BMP, MG ####[address] [place], [place] [address] Monocyte, Absolute 1.1 10 3/mcL High 0.2-1.0 [facility] ([place]) Comment on above: Performed By: #### G FR, CBC, ADIFF, ANEU, BMP, MG ####[address] [place], [place] [address] Monocytes/100 WBC (Bld) 13.3 % High 1.7-13.0 A [facility] ([place]) Comment on above: Performed By: #### G FR, CBC, ADIFF, ANEU, BMP, MG ####[address]ise [address] [place], [place] [address] Neutrophils/100 WBC (Bld) 73.8 % Normal 37.0-80.0 [facility] ([place]) Comment on above: Performed By: #### G FR, CBC, ADIFF, ANEU, BMP, MG ####[address] [place], [place] [address] .GFRon 10-06-2023 GFR 59 ml/min/1.73sqm Normal [facility] ([place]) Comment on above: Result Comment: GFR Population [...] C BC, ADIFF, ANEU, BMP, GFR #### [address]it [address] [place], [place] [address] GFR Non- 49 ml/min/1.73sqm Normal [facility] ([place]) Comment on above: Result Comment: GFR Population [...] C BC, ADIFF, ANEU, BMP, GFR #### [address] [address] .NEUABSon 10-06-2023 Neutrophil, Absolute 6.0 10 3/mcL Normal 2.9-6.2 [facility] ([place]) Comment on above: Performed By: #### G FR, CBC, ADIFF, ANEU, BMP, MG ####[address] [place], [place] [address] BMPon 10-06-2023 BUN/Creatinine Ratio 19 ratio Normal 7-27 [facility] ([place]) Comment on above: Performed By: #### G FR, CBC, ADIFF, ANEU, BMP, MG ####[address] [place], [place] [address] Calcium [Mass/Vol] 8.1 mg/dL Low 8.4-10.2 [facility] ([place]) Comment on above: Performed By: #### G FR, CBC, ADIFF, ANEU, BMP, MG ####[facility] [place], [place] [address] Chloride [Moles/Vol] 106 mmol/L Normal 98-107 [facility] ([place]) Comment on above: Performed By: #### G FR, CBC, ADIFF, ANEU, BMP, MG ####[place] [address] [place], [place] [address] CO2 [Moles/Vol] 32 mmol/L High 23-31 [facility] ([place]) Comment on above: Performed By: #### G FR, CBC, ADIFF, ANEU, BMP, MG ####[address]ise [address] [place], [place] [address] Creatinine [Mass/Vol] 1.44 mg/dL High 0.70-1.30 [facility] ([place]) Comment on above: Performed By: #### G FR, CBC, ADIFF, ANEU, BMP, MG ####[address] [place], [place] [address] Electrolyte Balance 1.0 mEq/L Low 4.0-15.0 [facility] ([place]) Comment on above: Performed By: #### G FR, CBC, ADIFF, ANEU, BMP, MG ####[address] [place], [place] [address] Glucose [Mass/Vol] 130 mg/dL High 80-115 [facility] ([place]) Comment on above: Performed By: #### G FR, CBC, ADIFF, ANEU, BMP, MG ####[address] [place], [place] [address] Potassium [Moles/Vol] 4.9 mmol/L Normal 3.5-5.1 [facility] ([place]) Comment on above: Performed By: #### G FR, CBC, ADIFF, ANEU, BMP, MG ####[address] [place], [place] [address] Sodium [Moles/Vol] 139 mmol/L Normal 136-145 [facility] ([place]) Comment on above: Performed By: #### G FR, CBC, ADIFF, ANEU, BMP, MG ####[address] [place], [place] [address] Urea nitrogen [Mass/Vol] 28 mg/dL High 7-18 [facility] ([place]) Comment on above: Performed By: #### G FR, CBC, ADIFF, ANEU, BMP, MG ####[address] [place], [place] [address] CBCon 10-06-2023 Erythrocyte distribution width (RBC) [Ratio] 17.3 % High 11.5-14.5 [facility] ([place]) Comment on above: Performed By: #### G FR, CBC, ADIFF, ANEU, BMP, MG ####[address] [place], [place] [address] Hematocrit (Bld) [Volume fraction] 20.7 % Low 42.0-52.0 [facility] ([place]) Comment on above: Performed By: #### G FR, CBC, ADIFF, ANEU, BMP, MG ####[address] [place], [place] [address] Hgb 7.0 G/dL Low 14.0-18.0 [facility] ([place]) Comment on above: Performed By: #### G FR, CBC, ADIFF, ANEU, BMP, MG ####[address] [place], [place] [address] MCH (RBC) [Entitic mass] 29.2 pg Normal 27.0-31.2 [facility] ([place] Comment on above: Performed By: #### G FR, CBC, ADIFF, ANEU, BMP, MG ####[address] [place], [place] [address] MCHC 33.8 G/dL Normal 31.8-35.4 [facility] ([place] Comment on above: Performed By: #### G FR, CBC, ADIFF, ANEU, BMP, MG ####[address] [place], [place] [address] MCV (RBC) [Entitic vol] 86.4 fL Normal 80.0-94.0 A [facility] ([place]) Comment on above: Performed By: #### G FR, CBC, ADIFF, ANEU, BMP, MG ####[address] [place], [place] [address] Platelet 149 10 3/mcL Normal 130-400 [facility] ([place] Comment on above: Performed By: #### G FR, CBC, ADIFF, ANEU, BMP, MG ####[address] [place], [place] [address] Platelet mean volume (Bld) [Entitic vol] 10.6 fL High 7.4-10.4 [facility] ([place] Comment on above: Performed By: #### G FR, CBC, ADIFF, ANEU, BMP, MG ####[address] [place], [place] [address] RBC 2.40 10 6/mcL Low 4.04-6.13 [facility] ([place] Comment on above: Performed By: #### G FR, CBC, ADIFF, ANEU, BMP, MG ####[address] [place], [place] [address] WBC 8.2 10 3/mcL Normal 4.6-10.8 [facility] ([place]) Comment on above: Performed By: #### G FR, CBC, ADIFF, ANEU, BMP, MG ####[address]ise [address] [place], [place] [address] CT TIBIA/FIBULA W/O CONTRAST RIGHTon 10-06-2023 CT [...] 10/06/2023 5:43:23 PM Ordering Provider: WU Schroeder [facility] ([place]) on 10-06-2023 Hematocrit (Bld) [Volume fraction] 21.9 % Low 42.0-52.0 [facility]) Comment on above: Performed By: #### C BC, ADIFF, ANEU, BMP, GFR #### [facility] [address] [place], [place] [address] Hgb 7.3 G/dL Low 14.0-18.0 [facility]) Comment on above: Performed By: #### C BC, ADIFF, ANEU, BMP, GFR #### [facility] [address] [place], [place] [address] LABORATORYOrdered By: Marixa Canela on 10-06-2023 Blood Glucose Testing Reason Routine (10/06/23 9:24 PM) [facility] Work Phone: Glucose [Mass/Vol] 135 mg/dL High 82 - 115 mg/dL [facility] Work Phone: LABORATORYOrdered By: SYSTEM SYSTEM [...] 10-06-2023 Magnesium [Mass/Vol] 2.1 mg/dL Normal 1.8-2.4 [facility] ([place]) Comment on above: Performed By: #### G FR, CBC, ADIFF, ANEU, BMP, MG ####[address] [place], [place] [address] .Auto Diffon 10-05-2023 Basophil, Absolute 0.0 10 3/mcL Normal 0.0-0.2 [facility] ([place]) Comment on above: Performed By: #### B MP, MG, GFR, CBC, ADIFF, ANEU, MORPH ####[address] [place], [place] [address] Basophils/100 WBC (Bld) 0.5 % Normal 0.0-2.5 A [facility] ([place]) Comment on above: Performed By: #### B MP, MG, GFR, CBC, ADIFF, ANEU, MORPH ####[address] [place], [place] [address] Eosinophil, Absolute 0.1 10 3/mcL Normal 0.0-0.4 [facility] ([place]) Comment on above: Performed By: #### B MP, MG, GFR, CBC, ADIFF, ANEU, MORPH ####[address] [place], [place] [address] Eosinophils/100 WBC (Bld) 0.7 % Normal 0.0-7.0 [facility] ([place]) Comment on above: Performed By: #### B MP, MG, GFR, CBC, ADIFF, ANEU, MORPH ####[address] [place], [place] [address] Lymphocyte, Absolute 1.0 10 3/mcL Normal 0.8-3.9 [facility] ([place]) Comment on above: Performed By: #### B MP, MG, GFR, CBC, ADIFF, ANEU, MORPH ####[address] [place], [place] [address] Lymphocytes/100 WBC (Bld) 11.4 % Normal 10.0-50.0 [facility] ([place]) Comment on above: Performed By: #### B MP, MG, GFR, CBC, ADIFF, ANEU, MORPH ####[address] [place], [place] [address] Monocyte, Absolute 1.0 10 3/mcL Normal 0.2-1.0 [facility] ([place]) Comment on above: Performed By: #### B MP, MG, GFR, CBC, ADIFF, ANEU, MORPH ####[address] [place], [place] [address] Monocytes/100 WBC (Bld) 11.2 % Normal 1.7-13.0 A [facility] ([place]) Comment on above: Performed By: #### B MP, MG, GFR, CBC, ADIFF, ANEU, MORPH ####[address] [place], [place] [address] Neutrophils/100 WBC (Bld) 76.2 % Normal 37.0-80.0 [facility] ([place]) Comment on above: Performed By: #### B MP, MG, GFR, CBC, ADIFF, ANEU, MORPH ####[address] [place], [place] [address] .GFRon 10-05-2023 GFR 50 ml/min/1.73sqm Normal [facility] ([place]) Comment on above: Result Comment: GFR Population [...] MG, GFR, CBC, ADIFF, ANEU, MORPH ####[address] [place], [place] [address] GFR Non- 41 ml/min/1.73sqm Normal [facility] ([place]) Comment on above: Result Comment: GFR Population [...] MP, MG, GFR, CBC, ADIFF, ANEU, MORPH ####[address] [place], [place] [address] .Morphon 10-05-2023 Platelet Estimate Normal Normal [facility]) Comment on above: Performed By: #### B MP, MG, GFR, CBC, ADIFF, ANEU, MORPH ####[address] [place], [place] [address] .NEUABSon 10-05-2023 Neutrophil, Absolute 6.9 10 3/mcL High 2.9-6.2 [facility] ([place]) Comment on above: Performed By: #### B MP, MG, GFR, CBC, ADIFF, ANEU, MORPH ####[address] [place], [place] [address] BMPon 10-05-2023 BUN/Creatinine Ratio 20 ratio Normal 7-27 [facility] ([place]) Comment on above: Performed By: #### B MP, MG, GFR, CBC, ADIFF, ANEU, MORPH ####[address] [place], [place] [address] Calcium [Mass/Vol] 8.2 mg/dL Low 8.4-10.2 [facility] ([place]) Comment on above: Performed By: #### B MP, MG, GFR, CBC, ADIFF, ANEU, MORPH ####[address] [place], [place] [address] Chloride [Moles/Vol] 106 mmol/L Normal 98-107 [facility] ([place]) Comment on above: Performed By: #### B MP, MG, GFR, CBC, ADIFF, ANEU, MORPH ####[address] [place], [place] [address] CO2 [Moles/Vol] 31 mmol/L Normal 23-31 [facility] ([place]) Comment on above: Performed By: #### B MP, MG, GFR, CBC, ADIFF, ANEU, MORPH ####[address] [place], [place] [address] Creatinine [Mass/Vol] 1.66 mg/dL High 0.70-1.30 [facility] ([place]) Comment on above: Performed By: #### B MP, MG, GFR, CBC, ADIFF, ANEU, MORPH ####[address] [place], [place] [address] Electrolyte Balance 3.0 mEq/L Low 4.0-15.0 [facility] ([place]) Comment on above: Performed By: #### B MP, MG, GFR, CBC, ADIFF, ANEU, MORPH ####[address] [place], [place] [address] Glucose [Mass/Vol] 145 mg/dL High 80-115 [facility] ([place]) Comment on above: Performed By: #### B MP, MG, GFR, CBC, ADIFF, ANEU, MORPH ####[address] [place], [place] [address] Potassium [Moles/Vol] 5.2 mmol/L High 3.5-5.1 [facility] ([place]) Comment on above: Performed By: #### B MP, MG, GFR, CBC, ADIFF, ANEU, MORPH ####[address] [place], [place] [address] Sodium [Moles/Vol] 140 mmol/L Normal 136-145 [facility] ([place]) Comment on above: Performed By: #### B MP, MG, GFR, CBC, ADIFF, ANEU, MORPH ####[address] [place], [place] [address] Urea nitrogen [Mass/Vol] 34 mg/dL High 7-18 [facility] ([place]) Comment on above: Performed By: #### B MP, MG, GFR, CBC, ADIFF, ANEU, MORPH ####[address] [place], [place] [address] CBCon 10-05-2023 Erythrocyte distribution width (RBC) [Ratio] 17.6 % High 11.5-14.5 [facility] ([place]) Comment on above: Performed By: #### B MP, MG, GFR, CBC, ADIFF, ANEU, MORPH ####[address] [place], [place] [address] Hematocrit (Bld) [Volume fraction] 23.8 % Low 42.0-52.0 [facility] ([place] Comment on above: Performed By: #### B MP, MG, GFR, CBC, ADIFF, ANEU, MORPH ####[address] [place], [place] [address] Hgb 8.2 G/dL Low 14.0-18.0 [facility] ([place] Comment on above: Performed By: #### B MP, MG, GFR, CBC, ADIFF, ANEU, MORPH ####[address] [place], [place] [address] MCH (RBC) [Entitic mass] 29.8 pg Normal 27.0-31.2 [facility] ([place] Comment on above: Performed By: #### B MP, MG, GFR, CBC, ADIFF, ANEU, MORPH ####[address] [place], [place] [address] MCHC 34.4 G/dL Normal 31.8-35.4 [facility] ([place] Comment on above: Performed By: #### B MP, MG, GFR, CBC, ADIFF, ANEU, MORPH ####[address] [place], [place] [address] MCV (RBC) [Entitic vol] 86.5 fL Normal 80.0-94.0 A [facility] ([place]) Comment on above: Performed By: #### B MP, MG, GFR, CBC, ADIFF, ANEU, MORPH ####[address] [place], [place] [address] Platelet 155 10 3/mcL Normal 130-400 [facility] ([place] Comment on above: Performed By: #### B MP, MG, GFR, CBC, ADIFF, ANEU, MORPH ####[address] [place], [place] [address] Platelet mean volume (Bld) [Entitic vol] 10.7 fL High 7.4-10.4 [facility] ([place] Comment on above: Performed By: #### B MP, MG, GFR, CBC, ADIFF, ANEU, MORPH ####[address] [place], [place] [address] RBC 2.76 10 6/mcL Low 4.04-6.13 [facility] ([place] Comment on above: Performed By: #### B MP, MG, GFR, CBC, ADIFF, ANEU, MORPH ####[address] [place], [place] [address] WBC 9.1 10 3/mcL Normal 4.6-10.8 [facility] ([place] Comment on above: Performed By: #### B MP, MG, GFR, CBC, ADIFF, ANEU, MORPH ####[address] [place], [place] [address] LABORATORYOrdered By: SYSTEM SYSTEM on 10-05-2023 Basophil, [...] 10-05-2023 Magnesium [Mass/Vol] 2.1 mg/dL Normal 1.8-2.4 [facility] ([place]) Comment on above: Performed By: #### B MP, MG, GFR, CBC, ADIFF, ANEU, MORPH ####[address] [place], [place] [address] .GFRon 10-04-2023 GFR 60 ml/min/1.73sqm Normal [facility] ([place] Comment on above: Result Comment: GFR Population [...] Performed By: #### A ALEXANDER RUTHERFORD #### [address] [address] GFR Non- 50 ml/min/1.73sqm Normal [facility] ([place]) Comment on above: Result Comment: GFR Population [...] Performed By: #### A ALEXANDER RUTHERFORD #### [address] [address] .Urinalysis Microscopic (AO) on 10-04-2023 UA Bacteria 1+ /hpf Abnormal [facility] ([place] Comment on above: Performed By: #### A ALEXANDER RUTHERFORD #### [address] [address] UA RBC LOADED Abnormal None Seen [facility] ([place] Comment on above: Performed By: #### A ALEXANDER RUTHERFORD #### [place] [address] UA Squam Epithelial 0-5 Abnormal None Seen [facility] ([place]) Comment on above: Performed By: #### A ALEXANDER RUTHERFORD #### [place] [address] UA WBC 10-15 Abnormal None Seen [facility] ([place]) Comment on above: Performed By: #### A ALEXANDER RUTHERFORD #### [place] [address] AMOXICILLIN+CLAVULANATE:SUSC :PT:ISOLATE:ORDQN:MICon 10-04-2023 Amoxicillin+Clavulanate KIARA [Susc] 10,000 - 50,000 cfu/ml Enterobacter cloacae complex [facility] Work Phone: Amoxicillin+Clavulanate KIARA [Susc]on 10-04-2023 Enterobacter cloacae complex Enterobacter cloacae complex [facility] Work Phone: BMPon 10-04-2023 BUN/Creatinine Ratio 21 ratio Normal 7-27 [facility] ([place]) Comment on above: Performed By: #### A ALEXANDER RUTHERFORD #### [place] [address] Calcium [Mass/Vol] 8.6 mg/dL Normal 8.4-10.2 [facility] ([place]) Comment on above: Performed By: #### A ALEXANDER RUTHERFORD #### [place] [address] Chloride [Moles/Vol] 109 mmol/L High 98-107 [facility] ([place]) Comment on above: Performed By: #### A KRISH, ABOGEL #### [address] [address] CO2 [Moles/Vol] 31 mmol/L Normal 23-31 [facility] ([place]) Comment on above: Performed By: #### A BSMERISSA, ABOGEL #### [address] [address] Creatinine [Mass/Vol] 1.42 mg/dL High 0.70-1.30 [facility] ([place]) Comment on above: Performed By: #### A KRISH, ABOGEL #### [address] [address] Electrolyte Balance 3.0 mEq/L Low 4.0-15.0 [facility] ([place]) Comment on above: Performed By: #### A KRISH, ABOGEL #### [address] [address] Glucose [Mass/Vol] 134 mg/dL High 80-115 [facility] ([place]) Comment on above: Performed By: #### A KRISH, ABOGEL #### [address] [address] Potassium [Moles/Vol] 5.0 mmol/L Normal 3.5-5.1 [facility] ([place]) Comment on above: Performed By: #### A KRISH, ABOGEL #### [address] [address] Sodium [Moles/Vol] 143 mmol/L Normal 136-145 [facility] ([place]) Comment on above: Performed By: #### A BSMERISSA, ABOGEL #### [address] [address] Urea nitrogen [Mass/Vol] 30 mg/dL High 7-18 [facility] ([place] Comment on above: Performed By: #### A BSMERISSA, ABOGEL #### [address] [address] LABORATORYOrdered By: Louie kilpatrick on 10-04-2023 Appearance [...] 10-04-2023 Magnesium [Mass/Vol] 2.2 mg/dL Normal 1.8-2.4 [facility] ([place]) Comment on above: Performed By: #### A ALEXANDER RUTHERFORD #### [facility] [address] [place] [address] UAon 10-04-2023 Color (U) Red Abnormal [facility] ([place] Comment on above: Performed By: #### A ALEXANDER RUTHERFORD #### [address] [address] Glucose (U) [Mass/Vol] Negative Normal Negative [facility] ([place]) Comment on above: Performed By: #### A ALEXANDER RUTHERFORD #### [place] [address] Ketones Ql (U) Negative Normal Negative [facility] ([place] Comment on above: Performed By: #### A ALEXANDER RUTHERFORD #### [place] [address] UA Appear Cloudy Abnormal Clear [facility] ([place] Comment on above: Performed By: #### A ALEXANDER RUTHERFORD #### [place] [id number] UA Blood Large Abnormal Negative [facility] ([place] Comment on above: Performed By: #### A ALEXANDER RUTHERFORD #### [place] [address] UA Leuk Est Small Abnormal Negative [facility] ([place] Comment on above: Performed By: #### A ALEXANDER RUTHERFORD #### [address] [address] UA Nitrite Negative Normal Negative [facility] ([place] Comment on above: Performed By: #### A ALEXANDER RUTHERFORD #### [place] [address] UA pH 5.0 Normal 5.0 - 8.0 [facility] ([place] Comment on above: Performed By: #### A ALEXANDER RUTHERFORD #### [place] [id number] UA Protein 100 mg/dL Abnormal Negative [facility] ([place] Comment on above: Performed By: #### A ALEXANDER RUTHERFORD #### [place] [id number] UA Spec Grav 1.025 Normal 1.015-1.025 [facility] ([place] Comment on above: Performed By: #### A ALEXANDER RUTHERFORD #### [place] [address] UA Specimen Type Void Normal [facility] ([place] Comment on above: Performed By: #### A RUBIO RUTHERFORDGEL #### [address] [address] UA Urobilinogen 0.2 E.U./dL Normal 0.2-1.0 [facility] ([place] Comment on above: Performed By: #### A RUBIO RUTHERFORDGEL #### [address] [address] Urobilinogen (U) [Mass/Vol] Negative Normal Negative [facility] ([place] Comment on above: Performed By: #### A RUBIO RUTHERFORDGEL #### [address] [address] .Auto Diffon 10-03-2023 Basophil, Absolute 0.1 10 3/mcL Normal 0.0-0.2 [facility] ([place]) Comment on above: Performed By: #### A ALEXANDER RUTHERFORD #### [address] [address] Basophils/100 WBC (Bld) 0.6 % Normal 0.0-2.5 A [facility] ([place]) Comment on above: Performed By: #### A ALEXANDER RUTHERFORD #### [address] [address] Eosinophil, Absolute 0.1 10 3/mcL Normal 0.0-0.4 [facility] ([place]) Comment on above: Performed By: #### A RUBIO RUTHERFORDGEL #### [address] [address] Eosinophils/100 WBC (Bld) 1.0 % Normal 0.0-7.0 [facility] ([place]) Comment on above: Performed By: #### A ALEXANDER RUTHERFORD #### [address] [address] Lymphocyte, Absolute 1.0 10 3/mcL Normal 0.8-3.9 [facility] ([place]) Comment on above: Performed By: #### A RUBIO RUTHERFORDGEL #### [address] [address] Lymphocytes/100 WBC (Bld) 10.6 % Normal 10.0-50.0 [facility] ([place]) Comment on above: Performed By: #### A ALEXANDER RUTHERFORD #### [address] [address] Monocyte, Absolute 0.7 10 3/mcL Normal 0.2-1.0 [facility] ([place]) Comment on above: Performed By: #### A ALEXANDER RUTHERFORD #### [address] [address] Monocytes/100 WBC (Bld) 8.1 % Normal 1.7-13.0 A [facility] ([place]) Comment on above: Performed By: #### A ALEXANDER RUTHERFORD #### [address] [address] Neutrophils/100 WBC (Bld) 79.7 % Normal 37.0-80.0 [facility] ([place] Comment on above: Performed By: #### A ALEXANDER RUTHERFORD #### [address] [address] .GFRon 10-03-2023 GFR 57 ml/min/1.73sqm Normal [facility] ([place]) Comment on above: Result Comment: GFR [...] Performed By: #### A ALEXANDER RUTHERFORD #### [address] [address] GFR Non- 47 ml/min/1.73sqm Normal [facility] ([place] Comment on above: Result Comment: GFR Population [...] Performed By: #### A ALEXANDER RUTHERFORD #### [address] [address] .MDWon 10-03-2023 Monocyte Distribution Width 18.48 Normal 0.00-20.00 [facility] ([place] Comment on above: Result Comment: For ED adult patients suspected of sepsis, MDW<=20.0 does not rule out sepsis or risk of sepsis Performed By: #### A ALEXANDER RUTHERFORD #### [address] [address] .NEUABSon 10-03-2023 Neutrophil, Absolute 7.2 10 3/mcL High 2.9-6.2 [facility] ([place]) Comment on above: Performed By: #### A ALEXANDER RUTHERFORD #### [address] [address] BMPon 10-03-2023 BUN/Creatinine Ratio 21 ratio Normal 7-27 [facility] ([place]) Comment on above: Performed By: #### A ALEXANDER RUTHERFORD #### [address] [address] Calcium [Mass/Vol] 8.4 mg/dL Normal 8.4-10.2 [facility] ([place]) Comment on above: Performed By: #### A ALEXANDER RUTHERFORD #### [address] [address] Chloride [Moles/Vol] 105 mmol/L Normal 98-107 [facility] ([place]) Comment on above: Performed By: #### A ALEXANDER RUTHERFORD #### [address] [address] CO2 [Moles/Vol] 31 mmol/L Normal 23-31 [facility] ([place] Comment on above: Performed By: #### A RUBIO RUTHERFORDGEL #### [address] [address] Creatinine [Mass/Vol] 1.49 mg/dL High 0.70-1.30 [facility] ([place]) Comment on above: Performed By: #### A RUBIO RUTHERFORDGEL #### [address] [address] Electrolyte Balance 10.0 mEq/L Normal 4.0-15.0 [facility] ([place]) Comment on above: Performed By: #### A ALEXANDER RUTHERFORD #### [address] [address] Glucose [Mass/Vol] 175 mg/dL High 80-115 [facility] [facility] ([place]) Comment on above: Performed By: #### A ALEXANDER RUTHERFORD #### [address] [address] Potassium [Moles/Vol] 5.1 mmol/L Normal 3.5-5.1 [facility] ([place]) Comment on above: Performed By: #### A ALEXANDER RUTHERFORD #### [address] [address] Sodium [Moles/Vol] 146 mmol/L High 136-145 [facility] ([place]) Comment on above: Performed By: #### A RUBIO RUTHERFORDGEL #### [address] [address] Urea nitrogen [Mass/Vol] 31 mg/dL High 7-18 [facility] ([place]) Comment on above: Performed By: #### A ALEXANDER RUTHERFORD #### [address] [address] CBCon 10-03-2023 Erythrocyte distribution width (RBC) [Ratio] 17.6 % High 11.5-14.5 [facility] ([place]) Comment on above: Performed By: #### A BSGEL, ABOGEL #### [address] [address] Hematocrit (Bld) [Volume fraction] 36.9 % Low 42.0-52.0 [facility] ([place]) Comment on above: Performed By: #### A BSMERISSA, ABOGEL #### [address] [address] Hgb 12.4 G/dL Low 14.0-18.0 [facility] ([place] Comment on above: Performed By: #### A BSMERISSA, ABOGEL #### [address] [address] MCH (RBC) [Entitic mass] 29.1 pg Normal 27.0-31.2 [facility] ([place] Comment on above: Performed By: #### A KRISH, ABOGEL #### [place] [address] MCHC 33.6 G/dL Normal 31.8-35.4 [facility] ([place] Comment on above: Performed By: #### A BSMERISSA ABOGEL #### [place] [id number] MCV (RBC) [Entitic vol] 86.6 fL Normal 80.0-94.0 A [facility] ([place]) Comment on above: Performed By: #### A BSMERISSA, ABOGEL #### [place] [id number] Platelet 175 10 3/mcL Normal 130-400 [facility] ([place] Comment on above: Performed By: #### A BSMERISSA, ABOGEL #### [place] [id number] Platelet mean volume (Bld) [Entitic vol] 9.8 fL Normal 7.4-10.4 [facility] ([place] Comment on above: Performed By: #### A BSMERISSA, ABOGEL #### [place] [id number] RBC 4.26 10 6/mcL Normal 4.04-6.13 [facility] ([place] Comment on above: Performed By: #### A ALEXANDER RUTHERFORD #### [place] [id number] [place] [id number] WBC 9.0 10 3/mcL Normal 4.6-10.8 [facility] ([place] Comment on above: Performed By: #### A ALEXANDER RUTHERFORD #### [address] [address] [address] HEAD OR BRAIN W/O CONTRBRISA Ton 10-03-2023 CT HEAD OR BRAIN W/O [...] Date: 10/03/2023 5:29:10 PM Ordering Provider: ALMAS Schroeder [facility] ([place]) CT MAXILLOFACIAL W/O CONTRBRISA Garcia 10-03-2023 CT MAXILLOFACIAL W/O CONTRAST ORIGINAL EXAMINATION: [...] Date: 10/03/2023 5:32:03 PM Ordering Provider: ALMAS Schroeder [facility] ([place]) CT SPINE CERVICAL W/O ISAI Herrera 10-03-2023 CT SPINE CERVICAL W/O CONTRAST ORIGINAL [...] Date: 10/03/2023 5:35:35 PM Ordering Provider: ALMAS Schroeder [facility] ([place]) LABORATORYOrdered By: SYSTEM SYSTEM on 10-03-2023 Monocyte [...] ng/L Male: 0-76 ng/L Testing performed on [employer] EXwhoplusyou using a homogeneous sandwich chemiluminescent immunoassay based on [employer] technology. TROPHSon 10-03-2023 High Sensitivity Troponin I 12 ng/L Normal 0-76 [facility] ([place]) Comment on above: Result Comment: High Sensitive Troponin I Reference Ranges: Female: 0-51 ng/L Male: 0-76 ng/L Testing performed on Dimension EXL using a homogeneous sandwich chemiluminescent immunoassay based on [employer] technology. Performed By: #### A ALEXANDER RUTHERFORD #### [place] [address] XR CHEST 1 VIEWon 10-03-2023 XR CHEST [...] Sign Date: 10/03/2023 5:39:25 PM Ordering Provider: [facility]) XR KNEE 1 OR 2 VIEWS RIGHTon [...] Sign Date: 10/03/2023 5:35:14 PM Ordering Provider: [facility]) XR TIBIA/FIBULA 2 VIEWS RIGH Ton 10-03-2023 XR TIBIA/FIBULA 2 VIEWS RIGHT [...] Sign Date: 10/03/2023 7:14:25 PM Ordering Provider: ALMAS PEREA [facility] ([place]) US AAA SCREENINGon US AAA SCREENING ORIGINAL [...] 3.0-3.4 cm. Reference: J Vasc Surgery 2009 Oct;50(4 Supplemental):S2-49 Interpreted by: Reginaldo wOen MD Preliminary Report By: Reginaldo Owen MD Electronically signed By Reginaldo Owen MD Dictated Date: 07/23/2023 12:47:55 PM Prelim Date: 07/23/2023 12:51:23 PM Sign Date: 07/23/2023 12:51:23 PM Ordering Provider: KELLIE Schroeder [facility] ([place]) LABORATORYOrdered By: Nica mcclendon [employer] on 03-16-2023 Glucose [Mass/Vol] 153 mg/dL Invalid Interpretation Code 82 - 115 mg/dL [facility] Work Phone: LABORATORYOrdered By: SYSTEM SYSTEM on [...] [facility] SS Comment on above: Interpretive Data: Chris gutierrez [employer] (CHEST, 1991, 102:312S-25S) recommended therapeutic range for oral anticoagulant [...] Invalid Interpretation Code 0.0 - 0.3 10^3/mcL AH Workflow SS Basophils/100 WBC (Bld) 0.5 % Invalid Interpretation Code 0.0 - 2.5 % AH Workflow SS Calcium [Mass/Vol] 9.0 mg/dL Invalid Interpretation Code 8.7 - 10.4 mg/dL AH ADM SS Chloride [Moles/Vol] 106 mmol/L Invalid Interpretation Code 98 - 110 mEq/L AH ADM SS CO2 [Moles/Vol] 28 mmol/L Invalid Interpretation Code 22 - 32 mEq/L AH ADM SS Creatinine [Mass/Vol] 1.26 mg/dL Invalid Interpretation Code 0.60 - 1.40 mg/dL AH ADM SS Electrolyte Balance 7.0 mEq/L Invalid Interpretation Code 4.0 - 15.0 mEq/L AH ADM SS Eosinophils (Bld) [#/Vol] 0.1 103/mcL Invalid Interpretation Code 0.0 - 0.7 10^3/mcL AH Workflow SS Eosinophils/100 WBC (Bld) 1.2 % [...] Invalid Interpretation Code 13.0 - 17.5 G/dL AH Workflow SS Lymphocytes (Bld) [#/Vol] 1.4 103/mcL Invalid Interpretation Code 0.9 - 4.3 10^3/mcL AH Workflow SS Lymphocytes/100 WBC (Bld) 20.6 % Invalid Interpretation Code 20.0 - 40.0 % AH Workflow SS MCH (RBC) [Entitic mass] 29.9 pg Invalid Interpretation Code 27.0 - 33.0 pg AH Workflow SS MCHC 33.2 G/dL Invalid Interpretation Code 32.0 - 36.0 G/dL AH Workflow SS MCV (RBC) [Entitic vol] 90.3 fL Invalid Interpretation Code 81.0 - 100.0 fL AH Workflow SS Monocytes (Bld) [#/Vol] 0.7 103/mcL Invalid Interpretation Code 0.1 - 1.4 10^3/mcL AH Workflow SS Monocytes/100 WBC (Bld) 10.3 % [...] Invalid Interpretation Code 136 - 145 mEq/L AH ADM SS Urea nitrogen [Mass/Vol] 28.0 mg/dL Invalid Interpretation Code 8.0 - 22.0 mg/dL ADM SS Urea nitrogen/Creatinine [Mass ratio] 22.2 ratio Invalid Interpretation Code 10.0 - 22.0 ratio AH ADM SS WBC (Bld) [#/Vol] 6.7 103/mcL Invalid Interpretation Code 4.5 - 10.8 10^3/mcL AH Workflow SS LABORATORYOrdered By: Loida Ann on 01-26-2023 INR Coag (PPP) [Relative time] 1.2 {INR} Invalid Interpretation Code AH Auto Coag SS Comment on above: Interpretive Data: Chris gutierrez [employer] (CHEST, 1991, 102:312S-25S) recommended therapeutic range for oral anticoagulant therapy is: LOW RISK: Prophylaxis of venous thrombosis INR: 2.0-3.0 Treatment of pulmonary embolism 2.0-3.0 Prevention of systemic embolism 2.0-3.0 HIGH RISK: Mechanical prosthetic valves 2.5-3.5 PT Coag (PPP) [Time] 13.8 s Invalid Interpretation Code 9.0 - 14.8 seconds AH Auto Coag SS Comment on above: Interpretive [...] Invalid Interpretation Code 26.0 - 388.0 ng/mL AH ADM SS GFR 69 ml/min/1.73sqm Invalid Interpretation Code AO Chemistry S GFR Non- 57 ml/min/1.73sqm Invalid Interpretation Code AO Chemistry S Parathyrin.intact [Mass/Vol] 62.1 pg/mL Invalid Interpretation Code 18.5 - 88.0 pg/mL AH ADM SS LABORATORYOrdered By: Stephanie Soria on 08-05-2021 Protein [Mass/Vol] 6.6 G/dL Invalid Interpretation Code 5.7 - 8.2 G/dL AH ADM SS LABORATORYOrdered By: Erickson Herr on [...] for site present. Sensitivity testing not indicated. [facility] Work Phone: GS 3+ Gram Negative Jerald s 2+ Polymorphonuclear cells Rare Mononuclear cells 2+ Gram Positive Cocci [facility] Work Phone: LABORATORYOrdered By: Liberty Manning [...] cranial mass CLINICAL INFORMATION: Rt groin cyst [facility] CONVERTED ELECTRONIC SIGNATURE SHYAM MCCAIN M.D., PATHOLOGIST (Electronic signature on file) Final Signed Out: 03/29/2012 15:22 [facility] CONVERTED FINAL DIAGNOSIS FINAL DIAGNOSIS: A) LESION OF RIGHT GROIN, EXCISION - RUPTURED EPIDERMAL INCLUSION CYST WITH ASSOCIATED ACUTE AND CHRONIC INFLAMMATION AND FOREIGN BODY GIANT CELL REACTION. BENIGN CAPILLARY HEMANGIOMA. B) LESION OF LEFT SCALP, EXCISION - INTRADERMAL NEVUS. SPECIMEN: (A) GROIN (B) SCALP [facility] CONVERTED GROSS DESCRIPTION GROSS DESCRIPTION: Cyst [...] the skin. No definite cyst is identified. [employer] Laboratory Technician sections are submitted in cassettes A1 through [...] B1. SLL/gpl MICROSCOPIC DESCRIPTION: Slides reviewed. PSB/gpl [facility] CONVERTED ORDERING PROVIDER Ordering Provider: ELDA WALL [facility] Otheron 07-15-2011 CONVERTED CLINICAL HISTORY OPERATIVE PROCEDURE: Hernia repair, inguinal/fem/spigelian SBR & repair of ing hernia with permacol mesh CLINICAL INFORMATION: Incarcerated rt ing hernia [facility] CONVERTED ELECTRONIC SIGNATURE ANIL GONSALEZ M.D. (Electronic signature on file) Final Signed Out: 07/15/2011 16:04 [facility] CONVERTED FINAL DIAGNOSIS FINAL DIAGNOSIS: SMALL BOWEL SEGMENT (INCARCERATED RIGHT INGUINAL HERNIA) - TRANSMURAL HEMORRHAGE AND EDEMA WITH FOCAL MUCOSAL ULCERATION AND ACUTE INFLAMMATION. SPECIMEN: SMALL BOWEL [facility] CONVERTED GROSS DESCRIPTION GROSS DESCRIPTION: Small [...] 5. SMS/lrs MICROSCOPIC DESCRIPTION: Slides reviewed. EAC/lrs [facility] CONVERTED ORDERING PROVIDER Ordering Provider: ELDA WALL [facility] Vital Signs Date Time Vital Sign Value Performing Clinician Facility 04-04-2025 10:59-0400 Body temperature 97.1 [degF] Dr. Moshe Kitchen MD Work Phone: [facility] 04-04-2025 10:59-0400 Diastolic blood pressure 61 mm[Hg] Dr. Moshe Kitchen MD Work Phone: [facility] 04-04-2025 10:59-0400 Heart rate 53 /min Dr. Moshe Kitchen MD Work Phone: [facility] 04-04-2025 10:59-0400 Respiratory rate 14 /min Dr. Moshe Kitchen MD Work Phone: [facility] 04-04-2025 10:59-0400 Systolic blood pressure 153 mm[Hg] Dr. Moshe Kitchen MD Work Phone: [facility] 03-12-2025 04:00-0400 Body temperature 97.8 [degF] Dr. Moshe Kitchen MD Work Phone: [facility] 03-12-2025 04:00-0400 Diastolic blood pressure 79 mm[Hg] Dr. Moshe Kitchen MD Work Phone: [facility] 03-12-2025 04:00-0400 Heart rate 54 /min Dr. Moshe Kitchen MD Work Phone: [facility] 03-12-2025 04:00-0400 Respiratory rate 16 /min Dr. Moshe Kitchen MD Work Phone: [facility] 03-12-2025 04:00-0400 SaO2% (BldA) [Mass fraction] 99 % Dr. Moshe Kitchen MD Work Phone: [facility] 03-12-2025 04:00-0400 Systolic blood pressure 150 mm[Hg] Dr. Moshe Kitchen MD Work Phone: [facility] 03-11-2025 23:32-0400 Body temperature 97.9 [degF] Dr. Moshe Kitchen MD Work Phone: [facility] 03-11-2025 23:32-0400 Diastolic blood pressure 78 mm[Hg] Dr. Moshe Kitchen MD Work Phone: [facility] 03-11-2025 23:32-0400 Heart rate 56 /min Dr. Moshe Kitchen MD Work Phone: [facility] 03-11-2025 23:32-0400 Respiratory rate 16 /min Dr. Moshe Kitchen MD Work Phone: [facility] 03-11-2025 23:32-0400 SaO2% (BldA) [Mass fraction] 98 % Dr. Moshe Kitchen MD Work Phone: [facility] 03-11-2025 23:32-0400 Systolic blood pressure 134 mm[Hg] Dr. Moshe Kitchen MD Work Phone: [facility] 03-11-2025 22:25-0400 Body height 187.[address] Moshe Kitchen MD Work Phone: [facility] 03-11-2025 22:25-0400 Body mass index (BMI) [Ratio] 33.9 kg/m2 Dr. Moshe Kitchen MD Work Phone: [facility] 03-11-2025 22:25-0400 Body weight 119.[address] Moshe Kitchen MD Work Phone: [facility] 03-07-2025 08:51-0400 Body temperature 6 [degF] Dr. Moshe Kitchen MD Work Phone: [facility] 03-07-2025 08:51-0400 Diastolic blood pressure 77 mm[Hg] Dr. Moshe Kitchen MD Work Phone: [facility] 03-07-2025 08:51-0400 Heart rate 60 /min Dr. Moshe Kitchen MD Work Phone: [facility] 03-07-2025 08:51-0400 Respiratory rate 18 /min Dr. Moshe Kitchen MD Work Phone: [facility] 03-07-2025 08:51-0400 Systolic blood pressure 135 mm[Hg] Dr. Moshe Kitchen MD Work Phone: [facility] 01-24-2025 09:48-0400 Body temperature 96.7 [degF] Dr. Kathleen Herzog MD [facility] 01-24-2025 09:48-0400 Diastolic blood pressure 71 mm[Hg] Dr. Kathleen Herzog MD [facility] 01-24-2025 09:48-0400 Heart rate 56 /min Dr. Kathleen Herzog MD [facility] 01-24-2025 09:48-0400 Respiratory rate 16 /min Dr. Kathleen Herzog MD [facility] 01-24-2025 09:48-0400 Systolic blood pressure 135 mm[Hg] Dr. Kathleen Herzog MD [facility] 01-06-2025 16:00-0400 Body temperature 97.9 [degF] Dr. Juan Cunha DO Work Phone: [facility] 01-06-2025 16:00-0400 Diastolic blood pressure 82 mm[Hg] Dr. Juan Cunha DO Work Phone: 2(560)355-981070 [place] [address] 01-06-2025 16:00-0400 Heart rate 71 /min Dr. Juan Cunha DO Work Phone: 5(312)401-342381 [place] [address] 01-06-2025 16:00-0400 Respiratory rate 16 /min Dr. Juan Cunha DO Work Phone: 9(807)948-772381 [place] [address] 01-06-2025 16:00-0400 SaO2% (BldA) [Mass fraction] 100 % Dr. Juan Cunha DO Work Phone: 4(179)915-403481 [place] [address] 01-06-2025 16:00-0400 Systolic blood pressure 122 mm[Hg] Dr. Juan Cunha DO Work Phone: 6(530)076-218181 [place] [address] 01-06-2025 10:08-0400 Body height 187.[address] Juan Cunha DO Work Phone: 5(855)045-676281 [place] [address] 01-06-2025 10:08-0400 Body weight 113.[address] Juan Cunha DO Work Phone: 6(256)686-032481 [place] [address] 01-05-2025 16:33-0400 Body mass index (BMI) [Ratio] 32 kg/m2 Dr. Juan Cunha DO Work Phone: 1(308)218-889281 [place] [address] 01-05-2025 16:05-0400 Body temperature 98.2 [degF] Dr. Juan Cunha DO Work Phone: 3(693)686-208081 [place] [address] 01-05-2025 16:05-0400 Diastolic blood pressure 74 mm[Hg] Dr. Juan Cunha DO Work Phone: 7(896)971-738181 [place] [address] 01-05-2025 16:05-0400 Heart rate 55 /min Dr. Juan Cunha DO Work Phone: 3(936)728-759881 [place] [address] 01-05-2025 16:05-0400 Respiratory rate 18 /min Dr. Juan Cunha DO Work Phone: 1(850)332-924970 [place] [address] 01-05-2025 16:05-0400 SaO2% (BldA) [Mass fraction] 97 % Dr. Juan Cunha DO Work Phone: 5(531)657-120370 [place] [address] 01-05-2025 16:05-0400 Systolic blood pressure 165 mm[Hg] Dr. Juan Cunha DO Work Phone: 2(205)623-843070 [place] [address] 01-05-2025 08:19-0400 Body height 175.[address] Juan Cunha DO Work Phone: 2(500)433-084900 [address] 01-03-2025 09:51-0400 Body mass index (BMI) [Ratio] 44.6 kg/m2 Dr. Juan Cunha DO Work Phone: 6(596)531-033170 [place] [address] 01-03-2025 09:51-0400 Body temperature 98.7 [degF] Dr. Juan Cunha DO Work Phone: 8(582)704-362181 [place] [address] 01-03-2025 09:51-0400 Diastolic blood pressure 66 mm[Hg] Dr. Juan Cunha DO Work Phone: 8(637)348-270070 [place] [address] 01-03-2025 09:51-0400 Heart rate 68 /min Dr. Juan Cunha DO Work Phone: 3(481)329-099070 [place] [address] 01-03-2025 09:51-0400 Respiratory rate 16 /min Dr. Juan Cunha DO Work Phone: 7(397)787-566270 [place] [address] 01-03-2025 09:51-0400 Systolic blood pressure 119 mm[Hg] Dr. Juan Cunha DO Work Phone: 5(686)097-945870 [place] [address] 12-10-2024 00:19-0400 Body weight 157.[address] Juan Cunha DO Work Phone: 7(052)476-160570 [place] [address] 11-29-2024 09:38-0400 Body mass index (BMI) [Ratio] 44.6 kg/m2 Dr. Moshe Kitchen MD Work Phone: [facility] 11-29-2024 09:38-0400 Body temperature 97.8 [degF] Dr. Moshe Kitchen MD Work Phone: [facility] 11-29-2024 09:38-0400 Diastolic blood pressure 67 mm[Hg] Dr. Moshe Kitchen MD Work Phone: [facility] 11-29-2024 09:38-0400 Heart rate 56 /min Dr. Moshe Kitchen MD Work Phone: [facility] 11-29-2024 09:38-0400 Respiratory rate 18 /min Dr. Moshe Kitchen MD Work Phone: [facility] 11-29-2024 09:38-0400 Systolic blood pressure 127 mm[Hg] Dr. Moshe Kitchen MD Work Phone: [facility] 11-09-2024 00:40-0400 Body height 187.[address] Moshe Kitchen MD Work Phone: [facility] 11-09-2024 00:40-0400 Body weight 157.[address] Moshe Kitchen MD Work Phone: [facility] 11-08-2024 10:09-0400 Body mass index (BMI) [Ratio] 44.6 kg/m2 Dr. Moshe Kitchen MD Work Phone: [facility] 11-08-2024 10:09-0400 Body temperature 98.7 [degF] Dr. Moshe Kitchen MD Work Phone: [facility] 11-08-2024 10:09-0400 Diastolic blood pressure 71 mm[Hg] Dr. Moshe Kitchen MD Work Phone: [facility] 11-08-2024 10:09-0400 Heart rate 57 /min Dr. Moshe Kitchen MD Work Phone: [facility] 11-08-2024 10:09-0400 Respiratory rate 18 /min Dr. Moshe Kitchen MD Work Phone: [facility] 11-08-2024 10:09-0400 Systolic blood pressure 137 mm[Hg] Dr. Moshe Kitchen MD Work Phone: [facility] 10-18-2024 20:50-0400 Inhaled oxygen flow rate 2 L/min Dr. Moshe Kitchen MD Work Phone: [facility] 10-18-2024 20:48-0400 Body temperature 98.7 [degF] Dr. Moshe Kitchen MD Work Phone: [facility] 10-18-2024 20:48-0400 Diastolic blood pressure 72 mm[Hg] Dr. Moshe Kitchen MD Work Phone: 1(246)810-288740 [place] [address] 10-18-2024 20:48-0400 Heart rate 87 /min Dr. Moshe Kitchen MD Work Phone: 8(890)131-608540 [place] [address] 10-18-2024 20:48-0400 Respiratory rate 16 /min Dr. Moshe Kitchen MD Work Phone: 6(373)287-259331 [place] [address] 10-18-2024 20:48-0400 SaO2% (BldA) [Mass fraction] 96 % Dr. Moshe Kitchen MD Work Phone: 6(345)557-416640 [place] [address] 10-18-2024 20:48-0400 Systolic blood pressure 138 mm[Hg] Dr. Moshe Kitchen MD Work Phone: 6(167)561-310940 [place] [address] 10-16-2024 13:35-0400 Body height 175.[address] Moshe Kitchen MD Work Phone: 9(859)157-250731 [place] [address] 10-16-2024 13:35-0400 Body weight 134.[address] Moshe Kitchen MD Work Phone: 6(548)441-468331 [place] [address] 10-13-2024 15:15-0400 Body mass index (BMI) [Ratio] 44 kg/m2 Dr. Moshe Kitchen MD Work Phone: [facility] 10-13-2024 14:12-0400 Body temperature 98.7 [degF] Dr. Moshe Kitchen MD Work Phone: 3(567)497-528740 [place] [address] 10-13-2024 14:12-0400 Diastolic blood pressure 58 mm[Hg] Dr. Moshe Kitchen MD Work Phone: 1(616)728-030140 [place] [address] 10-13-2024 14:12-0400 Heart rate 59 /min Dr. Moshe Kitchen MD Work Phone: [facility] 10-13-2024 14:12-0400 Respiratory rate 17 /min Dr. Moshe Kitchen MD Work Phone: [facility] 10-13-2024 14:12-0400 SaO2% (BldA) [Mass fraction] 98 % Dr. Moshe Kitchen MD Work Phone: [facility] 10-13-2024 14:12-0400 Systolic blood pressure 128 mm[Hg] Dr. Moshe Kitchen MD Work Phone: [facility] 10-13-2024 11:49-0400 Body height 175.[address] Moshe Kitchen MD Work Phone: [facility] 10-13-2024 11:49-0400 Body mass index (BMI) [Ratio] 43.9 kg/m2 Dr. Moshe Kitchen MD Work Phone: [facility] 10-13-2024 11:49-0400 Body weight 134.[address] Moshe Kitchen MD Work Phone: [facility] 10-12-2024 12:58-0400 Body temperature 97.9 [degF] Dr. Moshe Kitchen MD Work Phone: [facility] 10-12-2024 12:58-0400 Diastolic blood pressure 68 mm[Hg] Dr. Moshe Kitchen MD Work Phone: [facility] 10-12-2024 12:58-0400 Heart rate 68 /min Dr. Moshe Kitchen MD Work Phone: [facility] 10-12-2024 12:58-0400 Respiratory rate 20 /min Dr. Moshe Kitchen MD Work Phone: [facility] 10-12-2024 12:58-0400 SaO2% (BldA) [Mass fraction] 95 % Dr. Moshe Kitchen MD Work Phone: [facility] 10-12-2024 12:58-0400 Systolic blood pressure 133 mm[Hg] Dr. Moshe Kitchen MD Work Phone: [facility] 10-11-2024 10:33-0400 Body height 175.[address] Moshe Kitchen MD Work Phone: [facility] 10-11-2024 10:33-0400 Body weight 130.[address] Moshe Kitchen MD Work Phone: [facility] 10-11-2024 02:51-0400 Inhaled oxygen concentration 21 % Dr. Moshe Kitchen MD Work Phone: [facility] 10-10-2024 19:01-0400 Body mass index (BMI) [Ratio] 42.4 kg/m2 Dr. Moshe Kitchen MD Work Phone: [facility] 10-10-2024 18:00-0400 Diastolic blood pressure 74 mm[Hg] Dr. Moshe Kitchen MD Work Phone: [facility] 10-10-2024 18:00-0400 Heart rate 93 /min Dr. Moshe Kitchen MD Work Phone: [facility] 10-10-2024 18:00-0400 Inhaled oxygen flow rate 2 L/min Dr. Moshe Kitchen MD Work Phone: [facility] 10-10-2024 18:00-0400 Respiratory rate 26 /min Dr. Moshe Kitchen MD Work Phone: [facility] 10-10-2024 18:00-0400 SaO2% (BldA) [Mass fraction] 94 % Dr. Moshe Kitchen MD Work Phone: [facility] 10-10-2024 18:00-0400 Systolic blood pressure 131 mm[Hg] Dr. Moshe Kitchen MD Work Phone: [facility] 10-10-2024 17:25-0400 Body temperature 101.6 [degF] Dr. Moshe Kitchen MD Work Phone: [facility] 10-10-2024 15:24-0400 Body height 175.[address] Moshe Kitchen MD Work Phone: [facility] 10-10-2024 15:24-0400 Body mass index (BMI) [Ratio] 42.4 kg/m2 Dr. Moshe Kitchen MD Work Phone: [facility] 10-10-2024 15:24-0400 Body weight 130.[address] Moshe Kitchen MD Work Phone: [facility] 10-10-2024 00:55-0400 Body weight 157.[address] Moshe Kitchen MD Work Phone: [facility] 09-27-2024 08:56-0400 Body mass index (BMI) [Ratio] 44.6 kg/m2 Dr. Moshe Kitchne MD Work Phone: [facility] 09-27-2024 08:56-0400 Body temperature 98.1 [degF] Dr. Moshe Kitchen MD Work Phone: [facility] 09-27-2024 08:56-0400 Diastolic blood pressure 72 mm[Hg] Dr. Moshe Kitchen MD Work Phone: [facility] 09-27-2024 08:56-0400 Heart rate 58 /min Dr. Moshe Kitchen MD Work Phone: [facility] 09-27-2024 08:56-0400 Respiratory rate 16 /min Dr. Moshe Kitchen MD Work Phone: [facility] 09-27-2024 08:56-0400 Systolic blood pressure 165 mm[Hg] Dr. Moshe Kitchen MD Work Phone: [facility] 09-22-2024 09:26-0400 Diastolic blood pressure 66 mm[Hg] Isabela Campbell APRN.ENDOSCOPY TECH Work Phone: [facility] 09-22-2024 09:26-0400 Heart rate 56 /min Isabela Campbell FELT DYEING MACHINE TENDER.ENDOSCOPY TECH Work Phone: [facility] 09-22-2024 09:26-0400 SaO2% (BldA) [Mass fraction] 99 % Isabela Campbell FELT DYEING MACHINE TENDER.ENDOSCOPY TECH Work Phone: [facility] 09-22-2024 09:26-0400 Systolic blood pressure 134 mm[Hg] Isabela Campbell ENDOSCOPY TECH Work Phone: [facility] 09-17-2024 01:00-0500 Diastolic blood pressure 70 mm[Hg] Dr. Ignacia Reyna DO Work Phone: [facility] 09-17-2024 01:00-0500 Heart rate 57 /min Dr. Ignacia Reyna DO Work Phone: [facility] 09-17-2024 01:00-0500 Respiratory rate 17 /min Dr. Ignacia Reyna DO Work Phone: [facility] 09-17-2024 01:00-0500 SaO2% (BldA) [Mass fraction] 95 % Dr. Ignacia Reyna DO Work Phone: [facility] 09-17-2024 01:00-0500 Systolic blood pressure 146 mm[Hg] Dr. Ignacia Reyna DO Work Phone: [facility] 09-17-2024 00:30-0500 Body temperature 96 [degF] Dr. Ignacia Reyna DO Work Phone: [facility] 09-16-2024 19:54-0500 Body height 175.[address] Ignacia Reyna DO Work Phone: [facility] 09-16-2024 19:54-0500 Body mass index (BMI) [Ratio] 42.5 kg/m2 Dr. Ignacia Reyna DO Work Phone: [facility] 09-16-2024 19:54-0500 Body weight 130.[address] Ignacia Reyna DO Work Phone: [facility] 09-13-2024 08:39-0500 Body mass index (BMI) [Ratio] 44.6 kg/m2 Dr. Ignacia Reyna DO Work Phone: [facility] 09-13-2024 08:39-0500 Body temperature 97.1 [degF] Dr. Ignacia Reyna DO Work Phone: [facility] 09-13-2024 08:39-0500 Diastolic blood pressure 59 mm[Hg] Dr. Ignacia Reyna DO Work Phone: [facility] 09-13-2024 08:39-0500 Heart rate 58 /min Dr. Ignacia Reyna DO Work Phone: [facility] 09-13-2024 08:39-0500 Respiratory rate 15 /min Dr. Ignacia Reyna DO Work Phone: [facility] 09-13-2024 08:39-0500 Systolic blood pressure 152 mm[Hg] Dr. Ignacia Reyna DO Work Phone: [facility] 09-09-2024 02:27-0500 Body weight 157.[address] Ignacia Reyna DO Work Phone: [facility] 08-30-2024 08:36-0500 Body mass index (BMI) [Ratio] 44.6 kg/m2 Dr. Ignacia Reyna DO Work Phone: [facility] 08-30-2024 08:36-0500 Body temperature 97.7 [degF] Dr. Ignacia Reyna DO Work Phone: [facility] 08-30-2024 08:36-0500 Diastolic blood pressure 80 mm[Hg] Dr. Ignacia Reyna DO Work Phone: [facility] 08-30-2024 08:36-0500 Heart rate 66 /min Dr. Ignacia Reyna DO Work Phone: [facility] 08-30-2024 08:36-0500 Respiratory rate 18 /min Dr. Ignacia Reyna DO Work Phone: [facility] 08-30-2024 08:36-0500 Systolic blood pressure 148 mm[Hg] Dr. Ignacia Reyna DO Work Phone: [facility] 08-12-2024 02:17-0500 Body weight 157.[address] Ignacia Reyna DO Work Phone: [facility] 07-29-2024 02:31-0500 Heart rate 65 /min DANIE DURESKA DO [facility] 07-29-2024 02:31-0500 Respiratory rate 18 /min DANIE DURESKA DO [facility] 07-28-2024 18:41-0500 Diastolic Blood Pressure Non-Invasive 71 mm[Hg] DANIE DURESKA DO [facility] 07-28-2024 18:41-0500 Heart rate 60 /min DANIE DURESKA DO [facility] 07-28-2024 18:41-0500 Respiratory rate 18 /min DANIE DURESKA DO [facility] 07-28-2024 18:41-0500 Systolic Blood Pressure Non-Invasive 166 mm[Hg] DANIE DURESKA DO [facility] 07-28-2024 15:32-0500 Body temperature 97.34 [degF] DANIE DURESKA DO [facility] 07-28-2024 15:32-0500 Body weight 122.7 kg DANIE DURESKA DO [facility] 07-28-2024 15:32-0500 Diastolic Blood Pressure Non-Invasive 75 mm[Hg] DANIE DURESKA DO [facility] 07-28-2024 15:32-0500 Heart rate 64 /min DANIE DURESKA DO [facility] 07-28-2024 15:32-0500 Respiratory rate 18 /min DANIE DURESKA DO [facility] 07-28-2024 15:32-0500 Systolic Blood Pressure Non-Invasive 177 mm[Hg] DANIE DHEERAJ DO [facility] 07-26-2024 08:58-0500 Body mass index (BMI) [Ratio] 44.6 kg/m2 Dr. Ignacia Reyna DO Work Phone: [facility] 07-26-2024 08:58-0500 Body temperature 97 [degF] Dr. Ignacia Reyna DO Work Phone: [facility] 07-26-2024 08:58-0500 Diastolic blood pressure 66 mm[Hg] Dr. Ignacia Reyna DO Work Phone: [facility] 07-26-2024 08:58-0500 Heart rate 60 /min Dr. Ignacia Reyna DO Work Phone: [facility] 07-26-2024 08:58-0500 Respiratory rate 18 /min Dr. Ignacia Reyna DO Work Phone: [facility] 07-26-2024 08:58-0500 Systolic blood pressure 115 mm[Hg] Dr. Ignacia Reyna DO Work Phone: [facility] 07-12-2024 00:43-0500 Body weight 157.[address] Ignacia Reyna DO Work Phone: [facility] 07-11-2024 08:18-0500 Body mass index (BMI) [Ratio] 44.6 kg/m2 Dr. Ignacia Reyna DO Work Phone: [facility] 07-11-2024 08:18-0500 Diastolic blood pressure 62 mm[Hg] Dr. Ignacia Reyna DO Work Phone: [facility] 07-11-2024 08:18-0500 Heart rate 61 /min Dr. Ignacia Reyna DO Work Phone: [facility] 07-11-2024 08:18-0500 Respiratory rate 16 /min Dr. Ignacia Reyna DO Work Phone: [facility] 07-11-2024 08:18-0500 Systolic blood pressure 115 mm[Hg] Dr. Ignacia Reyna DO Work Phone: [facility] 07-04-2024 08:10-0500 Body temperature 97 [degF] Dr. Ignacia Reyna DO Work Phone: [facility] 06-11-2024 00:42-0500 Body weight 157.[address] Ignacia Reyna DO Work Phone: [facility] 06-07-2024 08:53-0500 Body mass index (BMI) [Ratio] 44.6 kg/m2 Dr. Ignacia Reyna DO Work Phone: [facility] 06-07-2024 08:53-0500 Body temperature 97 [degF] Dr. Ignacia Reyna DO Work Phone: [facility] 06-07-2024 08:53-0500 Diastolic blood pressure 99 mm[Hg] Dr. Ignacia Reyna DO Work Phone: [facility] 06-07-2024 08:53-0500 Heart rate 60 /min Dr. Ignacia Reyna DO Work Phone: [facility] 06-07-2024 08:53-0500 Respiratory rate 18 /min Dr. Ignacia Reyna DO Work Phone: [facility] 06-07-2024 08:53-0500 Systolic blood pressure 134 mm[Hg] Dr. Ignacia Reyna DO Work Phone: [facility] 06-05-2024 16:10-0500 Body temperature 97.1 [degF] Dr. Ignacia Reyna DO Work Phone: [facility] 06-05-2024 16:10-0500 Diastolic blood pressure 70 mm[Hg] Dr. Ignacia Reyna DO Work Phone: [facility] 06-05-2024 16:10-0500 Heart rate 50 /min Dr. Ignacia Reyna DO Work Phone: [facility] 06-05-2024 16:10-0500 Respiratory rate 16 /min Dr. Ignacia Reyna DO Work Phone: [facility] 06-05-2024 16:10-0500 SaO2% (BldA) [Mass fraction] 96 % Dr. Ignacia Reyna DO Work Phone: [facility] 06-05-2024 16:10-0500 Systolic blood pressure 138 mm[Hg] Dr. Ignacia Reyna DO Work Phone: [facility] 06-05-2024 14:45-0500 Inhaled oxygen flow rate 2 L/min Dr. Ignacia Reyna DO Work Phone: [facility] 06-05-2024 12:17-0500 Body mass index (BMI) [Ratio] 36 kg/m2 Dr. Ignacia Reyna DO Work Phone: [facility] 06-05-2024 12:17-0500 Body weight 127.[address] Ignacia Reyna DO Work Phone: [facility] 05-12-2024 00:18-0400 Body weight 157.[address] Ignacia Reyna DO Work Phone: [facility] 04-08-2024 11:21-0400 Body temperature 97.34 [degF] MIRELA OLIVO APRN-REGAN [facility] 04-08-2024 11:21-0400 Diastolic Blood Pressure Non-Invasive 72 mm[Hg] MIRELA OLIVO APRN-REGAN [facility] 04-08-2024 11:21-0400 Heart rate 57 /min MIRELA OLIVO APRN-REGAN [facility] 04-08-2024 11:21-0400 Reason For Taking VItal Signs MIRELA CASTELLANOS [facility] 04-08-2024 11:21-0400 Respiratory rate 18 /min MIRELA OLIVO APRN-REGAN [facility] 04-08-2024 11:21-0400 Systolic Blood Pressure Non-Invasive 147 mm[Hg] MIRELA OLIVO FELT DYEING MACHINE TENDER-ENDOSCOPY TECH [facility] 04-08-2024 06:27-0400 Body temperature 97.88 [degF] MIRELA OLIVO FELT DYEING MACHINE TENDER-ENDOSCOPY TECH [facility] 04-08-2024 06:27-0400 Diastolic Blood Pressure Non-Invasive 69 mm[Hg] MIRELA BERGERONWally FELT DYEING MACHINE TENDER-ENDOSCOPY TECH [facility] 04-08-2024 06:27-0400 Heart rate 48 /min MIRELA BERGERONWally FELT DYEING MACHINE TENDER-ENDOSCOPY TECH [facility] 04-08-2024 06:27-0400 Reason For Taking VItal Signs MIRELA BERGERONWally FELT DYEING MACHINE TENDER-ENDOSCOPY TECH [facility] 04-08-2024 06:27-0400 Respiratory rate 18 /min MIRELA OLIVO FELT DYEING MACHINE TENDER-ENDOSCOPY TECH [facility] 04-08-2024 06:27-0400 Systolic Blood Pressure Non-Invasive 145 mm[Hg] MIRELA BERGERONWally FELT DYEING MACHINE TENDER-ENDOSCOPY TECH [facility] 04-08-2024 02:54-0400 Body temperature 97.52 [degF] MIRELA BERGERONWally FELT DYEING MACHINE TENDER-ENDOSCOPY TECH [facility] 04-08-2024 02:54-0400 Diastolic Blood Pressure Non-Invasive 68 mm[Hg] MIRELA BERGERONWally FELT DYEING MACHINE TENDER-ENDOSCOPY TECH [facility] 04-08-2024 02:54-0400 Heart rate 57 /min MIRELA BERGERONWally FELT DYEING MACHINE TENDER-ENDOSCOPY TECH [facility] 04-08-2024 02:54-0400 Reason For Taking VItal Signs MIRELAAUGUSTINE BARRONCLARISSA FELT DYEING MACHINE TENDER-ENDOSCOPY TECH [facility] 04-08-2024 02:54-0400 Respiratory rate 18 /min MIRELA BERGERONWally FELT DYEING MACHINE TENDER-ENDOSCOPY TECH [facility] 04-08-2024 02:54-0400 Systolic Blood Pressure Non-Invasive 141 mm[Hg] MIRELA BERGERONWally FELT DYEING MACHINE TENDER-ENDOSCOPY TECH [facility] 04-07-2024 00:46-0400 Blood Pressure Cuff Size MIRELA BERGERONWally FELT DYEING MACHINE TENDER-ENDOSCOPY TECH [facility] 04-07-2024 00:46-0400 Blood Pressure Location MIRELA BERGERONWally FELT DYEING MACHINE TENDER-ENDOSCOPY TECH [facility] 04-07-2024 00:46-0400 Blood Pressure Method MIRELA BERGERONWally FELT DYEING MACHINE TENDER-ENDOSCOPY TECH [facility] 04-07-2024 00:46-0400 Heart rate 50 /min MIRELA BERGERONN FELT DYEING MACHINE TENDER-ENDOSCOPY TECH [facility] 04-06-2024 19:27-0400 Heart rate 60 /min MIRELA BERGERONWally FELT DYEING MACHINE TENDER-ENDOSCOPY TECH [facility] 04-06-2024 15:12-0400 Body height 188 cm MIRELA BERGERONWally FELT DYEING MACHINE TENDER-ENDOSCOPY TECH [facility] 04-06-2024 15:12-0400 Body weight 131.9 kg MIRELA BERGERONWally FELT DYEING MACHINE TENDER-ENDOSCOPY TECH [facility] 04-06-2024 15:12-0400 Body weight 37.32 kg/m2 MIRELAAUGUSTINE BERGERONWally FELT DYEING MACHINE TENDER-ENDOSCOPY TECH [facility] 04-06-2024 11:30-0400 Body weight 131.9 kg MIRELAAUGUSTINE BERGERONWally FELT DYEING MACHINE TENDER-ENDOSCOPY TECH [facility] 04-06-2024 11:23-0400 Blood Pressure Cuff Size MIRELA OLIVO FELT DYEING MACHINE TENDER-ENDOSCOPY TECH [facility] 04-06-2024 11:23-0400 Blood Pressure Location MIRELAAUGUSTINE OLIVO FELT DYEING MACHINE TENDER-ENDOSCOPY TECH [facility] 04-06-2024 11:23-0400 Blood Pressure Method MIRELA OLIVO FELT DYEING MACHINE TENDER-ENDOSCOPY TECH [facility] 04-06-2024 11:23-0400 Heart rate 50 /min MIRELA OLIVO FELT DYEING MACHINE TENDER-ENDOSCOPY TECH [facility] 04-06-2024 09:20-0400 Blood Pressure Cuff Size MIRELA OLIVO FELT DYEING MACHINE TENDER-ENDOSCOPY TECH [facility] 04-06-2024 09:20-0400 Blood Pressure Location MIRELA OLIVO FELT DYEING MACHINE TENDER-ENDOSCOPY TECH [facility] 04-06-2024 09:20-0400 Blood Pressure Method MIRELAAUGUSTINE OLIVO FELT DYEING MACHINE TENDER-ENDOSCOPY TECH [facility] 04-06-2024 09:20-0400 Body height 188 cm MIRELA OLIVO FELT DYEING MACHINE TENDER-ENDOSCOPY TECH [facility] 04-06-2024 09:20-0400 Heart rate 53 /min MIRELA OLIVO FELT DYEING MACHINE TENDER-ENDOSCOPY TECH [facility] 04-05-2024 01:33-0400 Body temperature 97.7 [degF] POORNIMA CLOVERChris DO [facility] 04-05-2024 01:33-0400 Diastolic Blood Pressure Non-Invasive 78 mm[Hg] POORNIMA HINKLE DO [facility] 04-05-2024 01:33-0400 Heart rate 64 /min POORNIMA FROMMELT DO [facility] 04-05-2024 01:33-0400 Respiratory rate 20 /min POORNIMA FROMMELT DO [facility] 04-05-2024 01:33-0400 Systolic Blood Pressure Non-Invasive 154 mm[Hg] POORNIMA FROMMELT DO [facility] 04-05-2024 00:33-0400 Diastolic Blood Pressure Non-Invasive 75 mm[Hg] POORNIMA FROMMELT DO [facility] 04-05-2024 00:33-0400 Heart rate 60 /min POORNIMA FROMMELT DO [facility] 04-05-2024 00:33-0400 Reason For Taking VItal Signs POORNIMA FROMMELT DO [facility] 04-05-2024 00:33-0400 Respiratory rate 20 /min POORNIMA FROMMELT DO [facility] 04-05-2024 00:33-0400 Systolic Blood Pressure Non-Invasive 139 mm[Hg] POORNIMA FROMMELT DO [facility] 04-04-2024 22:07-0400 Heart rate 61 /min POORNIMA FROMMELT DO [facility] 04-04-2024 22:07-0400 Reason For Taking VItal Signs POORNIMA FROMMELT DO [facility] 04-04-2024 22:07-0400 Respiratory rate 22 /min POORNIMA FROMMELT DO [facility] 04-04-2024 21:16-0400 Body height 188 cm POORNIMA FROMMELT DO [facility] 04-04-2024 21:16-0400 Body temperature 96.98 [degF] POORNIMA HINKLE DO [facility] 04-04-2024 21:16-0400 Body weight 134.1 kg POORNIMA HINKLE DO [facility] 04-04-2024 21:16-0400 Diastolic Blood Pressure Non-Invasive 74 mm[Hg] POORNIMA HINKLE DO [facility] 04-04-2024 21:16-0400 Systolic Blood Pressure Non-Invasive 159 mm[Hg] POORNIMA HINKLE DO [facility] 01-21-2024 13:40-0400 Diastolic Blood Pressure Non-Invasive 59 mm[Hg] FERNANDO ZEE MD [facility] 01-21-2024 13:40-0400 Heart rate 48 /min FERNANDO ZEE MD [facility] 01-21-2024 13:40-0400 Respiratory rate 20 /min FERNANDO ZEE MD [facility] 01-21-2024 13:40-0400 Systolic Blood Pressure Non-Invasive 125 mm[Hg] FERNANDO ZEE MD [facility] 01-21-2024 11:54-0400 Diastolic Blood Pressure Non-Invasive 64 mm[Hg] FERNANDO ZEE MD [facility] 01-21-2024 11:54-0400 Heart rate 47 /min FERNANDO ZEE MD [facility] 01-21-2024 11:54-0400 Respiratory rate 22 /min FERNANDO ZEE MD [facility] 01-21-2024 11:54-0400 Systolic Blood Pressure Non-Invasive 118 mm[Hg] FERNANDO ZEE MD [facility] 01-21-2024 11:11-0400 Body temperature 98.6 [degF] FERNANDO ZEE MD [facility] 01-21-2024 11:11-0400 Diastolic Blood Pressure Non-Invasive 78 mm[Hg] FERNANDO ZEE MD [facility] 01-21-2024 11:11-0400 Heart rate 52 /min FERNANDO ZEE MD [facility] 01-21-2024 11:11-0400 Respiratory rate 20 /min FERNANDO ZEE MD [facility] 01-21-2024 11:11-0400 Systolic Blood Pressure Non-Invasive 136 mm[Hg] FERNANDO ZEE MD [facility] 01-12-2024 15:16-0400 Diastolic blood pressure 74 mm[Hg] Shar Downs MD Work Phone: [facility] 01-12-2024 15:16-0400 Heart rate 48 /min Shar Downs MD Work Phone: [facility] 01-12-2024 15:16-0400 Systolic blood pressure 143 mm[Hg] Shar Downs MD Work Phone: [facility] 11-13-2023 22:55-0400 Diastolic Blood Pressure Non-Invasive 58 mm[Hg] FERNANDO ZEE MD [facility] 11-13-2023 22:55-0400 Heart rate 42 /min FERNANDO ZEE MD [facility] 11-13-2023 22:55-0400 Respiratory rate 18 /min FERNANDO ZEE MD [facility] 11-13-2023 22:55-0400 Systolic Blood Pressure Non-Invasive 112 mm[Hg] FERNANDO ZEE MD [facility] 11-13-2023 21:54-0400 Diastolic Blood Pressure Non-Invasive 64 mm[Hg] FERNANDO ZEE MD [facility] 11-13-2023 21:54-0400 Heart rate 42 /min FERNANDO ZEE MD [facility] 11-13-2023 21:54-0400 Reason For Taking VItal Signs FERNANDO ZEE MD [facility] 11-13-2023 21:54-0400 Respiratory rate 18 /min FERNANDO ZEE MD [facility] 11-13-2023 21:54-0400 Systolic Blood Pressure Non-Invasive 131 mm[Hg] FERNANDO ZEE MD [facility] 11-13-2023 21:53-0400 Blood Pressure Location FERNANDO ZEE MD [facility] 11-13-2023 21:53-0400 Blood Pressure Method FERNANDO ZEE MD [facility] 11-13-2023 21:53-0400 Diastolic Blood Pressure Non-Invasive 64 mm[Hg] FERNANDO ZEE MD [facility] 11-13-2023 21:53-0400 Heart rate 42 /min FERNANDO ZEE MD [facility] 11-13-2023 21:53-0400 Respiratory rate 16 /min FERNANDO ZEE MD [facility] 11-13-2023 21:53-0400 Systolic Blood Pressure Non-Invasive 131 mm[Hg] FERNANDO ZEE MD [facility] 11-13-2023 20:17-0400 Blood Pressure Location FERNANDO ZEE MD [facility] 11-13-2023 20:17-0400 Blood Pressure Method FERNANDO ZEE MD [facility] 11-13-2023 20:17-0400 Body height 188 cm FERNANDO ZEE MD [facility] 11-13-2023 20:17-0400 Body temperature 98.06 [degF] FERNANDO ZEE MD [facility] 11-13-2023 20:17-0400 Body weight 157 kg FERNANDO ZEE MD [facility] 11-13-2023 20:17-0400 Heart rate 52 /min FERNANDO ZEE MD [facility] 11-03-2023 21:19-0400 Body temperature 98.2 [degF] NIKKO Benites ANCILLARY SERVICES MANAGER THERAPY Work Phone: [facility] 11-03-2023 21:19-0400 Diastolic blood pressure 70 mm[Hg] NIKKO Benites ANCILLARY SERVICES MANAGER THERAPY Work Phone: [facility] 11-03-2023 21:19-0400 Heart rate 60 /min ANCILLARY SERVICES MANAGER THERAPY-C Kellie Baltes ANCILLARY SERVICES MANAGER THERAPY Work Phone: [facility] 11-03-2023 21:19-0400 Respiratory rate 18 /min ANCILLARY SERVICES MANAGER THERAPY-C Kellie Baltes ANCILLARY SERVICES MANAGER THERAPY Work Phone: [facility] 11-03-2023 21:19-0400 SaO2% (BldA) [Mass fraction] 93 % ANCILLARY SERVICES MANAGER THERAPY-C Kellie Baltes ANCILLARY SERVICES MANAGER THERAPY Work Phone: [facility] 11-03-2023 21:19-0400 Systolic blood pressure 135 mm[Hg] ANCILLARY SERVICES MANAGER THERAPY-C Kellie Baltes ANCILLARY SERVICES MANAGER THERAPY Work Phone: [facility] 11-03-2023 14:13-0400 Body height 187.96 cm ANCILLARY SERVICES MANAGER THERAPY-C Kellie Baltes ANCILLARY SERVICES MANAGER THERAPY Work Phone: [facility] 11-03-2023 14:13-0400 Body weight 159.8 kg ANCILLARY SERVICES MANAGER THERAPY-C Kellie Baltes ANCILLARY SERVICES MANAGER THERAPY Work Phone: [facility] 11-02-2023 16:45-0400 Inhaled oxygen flow rate 2 L/min ANCILLARY SERVICES MANAGER THERAPY-C Kellie Baltes ANCILLARY SERVICES MANAGER THERAPY Work Phone: [facility] 11-02-2023 02:32-0400 Body mass index (BMI) [Ratio] 45.2 kg/m2 ANCILLARY SERVICES MANAGER THERAPY-C Kellie Baltes ANCILLARY SERVICES MANAGER THERAPY Work Phone: [facility] 10-28-2023 19:35-0400 Body temperature 97.8 [degF] [facility] 10-28-2023 19:35-0400 Diastolic blood pressure 75 mm[Hg] [facility] 10-28-2023 19:35-0400 Heart rate 61 /min [facility] 10-28-2023 19:35-0400 Respiratory rate 14 /min [facility] 10-28-2023 19:35-0400 SaO2% (BldA) [Mass fraction] 98 % [facility] 10-28-2023 19:35-0400 Systolic blood pressure 154 mm[Hg] [facility] 10-28-2023 15:00-0400 Inhaled oxygen flow rate 2 L/min [facility] 10-28-2023 13:13-0400 Body height 187.96 cm [facility] 10-28-2023 13:13-0400 Body mass index (BMI) [Ratio] 47.7 kg/m2 [facility] 10-28-2023 13:13-0400 Body weight 168.8 kg [facility] 10-27-2023 08:30-0400 Heart rate 68 /min DANIE ALBERTO MD FACP [address] [place] [address] 10-27-2023 07:33-0400 Body temperature 97.52 [degF] DANIE ALBERTO MD FACP [address] [place] [address] 10-27-2023 07:33-0400 Diastolic Blood Pressure Non-Invasive 78 mm[Hg] DANIE ALBERTO MD FACP [address] [place] [address] 10-27-2023 07:33-0400 Heart rate 72 /min DANIE ALBERTO MD FACP [address] [place] [address] 10-27-2023 07:33-0400 Reason For Taking VItal Signs DANIE ALBERTO MD FACP [facility] 10-27-2023 07:33-0400 Respiratory rate 18 /min DANIE ALBERTO MD FACP [facility] 10-27-2023 07:33-0400 Systolic Blood Pressure Non-Invasive 152 mm[Hg] DANIE ALBERTO MD FACP [address] [place] [address] 10-26-2023 19:13-0400 Body temperature 97.88 [degF] DANIE ALBERTO MD FACP [address] [place] [address] 10-26-2023 19:13-0400 Diastolic Blood Pressure Non-Invasive 77 mm[Hg] DANIE ALBERTO MD FACP [address] [place] [address] 10-26-2023 19:13-0400 Heart rate 64 /min DANIE ALBERTO MD FACP [facility] 10-26-2023 19:13-0400 Reason For Taking VItal Signs DANIE ALBERTO MD FACP [facility] 10-26-2023 19:13-0400 Respiratory rate 18 /min DANIE ALBERTO MD FACP [facility] 10-26-2023 19:13-0400 Systolic Blood Pressure Non-Invasive 164 mm[Hg] DANIE ALBERTO MD FACP [facility] 10-26-2023 16:46-0400 Heart rate 68 /min DANIE ALBERTO MD FACP [facility] 10-26-2023 13:05-0400 Body temperature 97.52 [degF] DANIE ALBERTO MD FACP [facility] 10-26-2023 13:05-0400 Diastolic Blood Pressure Non-Invasive 61 mm[Hg] DANIE ALBERTO MD FACP [facility] 10-26-2023 13:05-0400 Heart rate 71 /min DANIE ALBERTO MD FACP [facility] 10-26-2023 13:05-0400 Reason For Taking VItal Signs DANIE ALBERTO MD FACP [facility] 10-26-2023 13:05-0400 Respiratory rate 18 /min DANIE ALBERTO MD FACP [facility] 10-26-2023 13:05-0400 Systolic Blood Pressure Non-Invasive 144 mm[Hg] DANIE ALBERTO MD FACP [facility] 10-26-2023 09:09-0400 Heart rate 75 /min DANIE ALBERTO MD FACP [facility] 10-23-2023 19:43-0400 Heart rate 65 /min DANIE ALBERTO MD FACP [facility] 10-22-2023 19:52-0400 Heart rate 60 /min DANIE ALBERTO MD FACP [facility] 10-22-2023 06:53-0400 Body weight 169.2 kg DANIE ALBERTO MD FACP [facility] 10-21-2023 19:13-0400 Heart rate 61 /min DANIE ALBERTO MD FACP [address] [place] [address] 10-21-2023 06:24-0400 Blood Pressure Cuff Size DANIE ALBERTO MD FACP [facility] 10-21-2023 06:24-0400 Blood Pressure Location DANIE ALBERTO MD FACP [facility] 10-21-2023 06:24-0400 Blood Pressure Method DAINE ALBERTO MD FACP [facility] 10-15-2023 10:46-0400 Body weight 164.7 kg DANIE ALBERTO MD FACP [facility] 10-13-2023 19:59-0400 Body height 188 cm DANIE ALBERTO MD FACP [facility] 10-13-2023 19:59-0400 Body weight 170.1 kg DANIE ALBERTO MD FACP [facility] 10-13-2023 19:59-0400 Body weight 48.13 kg/m2 DANIE ALBERTO MD FACP [address] [place] [address] 10-13-2023 19:40-0400 Body height 188 cm DANIE ALBERTO MD FACP [address] [place] [address] 10-13-2023 19:40-0400 Body weight 48.13 kg/m2 DANIE ALBERTO MD FACP [address] [place] [address] 10-13-2023 19:33-0400 Body temperature 98.6 [degF] DANIE ALBERTO MD FACP [address] 10-13-2023 18:22-0400 Body temperature 97.7 [degF] DANIE ALBERTO MD FACP [address] [place] [address] 10-13-2023 18:22-0400 Diastolic Blood Pressure Non-Invasive 61 mm[Hg] DANIE ALBERTO MD FACP [address] [place] [address] 10-13-2023 18:22-0400 Heart rate 55 /min DANIE ALBERTO MD FACP [address] 10-13-2023 18:22-0400 Respiratory rate 19 /min DANIE ALBERTO MD FACP [address] [place] [address] 10-13-2023 18:22-0400 Systolic Blood Pressure Non-Invasive 135 mm[Hg] DANIE ALBERTO MD FACP [address] [place] [address] 10-13-2023 17:14-0400 Heart rate 69 /min DANIE ALBERTO MD FACP [address] [place] [address] 10-13-2023 15:02-0400 Heart rate 62 /min DANIE ALBERTO MD FACP [address] [place] [address] 10-13-2023 15:02-0400 Respiratory rate 18 /min DANIE ALBERTO MD FACP [address] [place] [address] 10-13-2023 11:55-0400 Blood Pressure Cuff Size DANIE ALBERTO MD FACP [address] [place] [address] 10-13-2023 11:55-0400 Blood Pressure Location DANIE ALBERTO MD FACP [address] [place] [address] 10-13-2023 11:55-0400 Blood Pressure Method DANIE ALBERTO MD FACP [address] [place] [address] 10-13-2023 11:55-0400 Body temperature 98.42 [degF] DANIE ALBERTO MD FACP [address] [place] [address] 10-13-2023 11:55-0400 Diastolic Blood Pressure Non-Invasive 64 mm[Hg] DANIE ALBERTO MD FACP [address] [place] [address] 10-13-2023 11:55-0400 Heart rate 60 /min DANIE ALBERTO MD FACP [address] [place] [address] 10-13-2023 11:55-0400 Reason For Taking VItal Signs DANIE ALBERTO MD FACP [address] [place] [address] 10-13-2023 11:55-0400 Respiratory rate 18 /min DANIE ALBERTO MD FACP [address] [place] [address] 10-13-2023 11:55-0400 Systolic Blood Pressure Non-Invasive 169 mm[Hg] DANIE ALBERTO MD FACP [address] 10-13-2023 08:10-0400 Heart rate 62 /min DANIE ALBERTO MD FACP [address] 10-13-2023 07:52-0400 Blood Pressure Cuff Size DANIE ALBERTO MD FACP [address] [place] [address] 10-13-2023 07:52-0400 Blood Pressure Location DANIE ALBERTO MD FACP [address] [place] [address] 10-13-2023 07:52-0400 Blood Pressure Method DANIE ALBERTO MD FACP [address] [place] [address] 10-13-2023 07:52-0400 Body temperature 98.24 [degF] DANIE ALBERTO MD FACP [address] [place] [address] 10-13-2023 07:52-0400 Diastolic Blood Pressure Non-Invasive 65 mm[Hg] DANIE ALBERTO MD FACP [address] [place] [address] 10-13-2023 07:52-0400 Reason For Taking VItal Signs DANIE ALBERTO MD FACP [address] [place] [address] 10-13-2023 07:52-0400 Systolic Blood Pressure Non-Invasive 147 mm[Hg] DANIE ALBERTO MD FACP [address] [place] [address] 10-13-2023 06:48-0400 Heart rate 60 /min DANIE ALBERTO MD FACP [address] [place] [address] 10-13-2023 03:49-0400 Mean blood pressure 85 mm[Hg] DANIE ALBERTO MD FACP [address] [place] [address] 10-13-2023 02:46-0400 Heart rate 60 /min DANIE ALBERTO MD FACP [address] [place] [address] 10-12-2023 23:11-0400 Heart rate 61 /min DANIE ALBERTO MD FACP [address] [place] [address] 10-12-2023 23:11-0400 Reason For Taking VItal Signs DANIE ALBERTO MD FACP [address] [place] [address] 10-12-2023 19:34-0400 Body temperature 98.24 [degF] DANIE ALBERTO MD FACP [address] [place] [address] 10-11-2023 03:19-0400 Body temperature 97.7 [degF] DANIE ALBERTO MD FACP [address] [place] [address] 10-11-2023 03:19-0400 Heart rate 56 /min DANIE ALBERTO MD FACP [address] [place] [address] 10-10-2023 15:45-0400 Blood Pressure Cuff Size DANIE ALBERTO MD FACP [address] [place] [address] 10-10-2023 15:45-0400 Blood Pressure Location DANIE ALBERTO MD FACP [address] [place] [address] 10-10-2023 15:45-0400 Blood Pressure Method DANIE ALBERTO MD FACP [address] [place] [address] 10-10-2023 15:45-0400 Mean blood pressure 87 mm[Hg] DANIE ALBERTO MD FACP [address] [place] [address] 10-10-2023 10:57-0400 Diastolic blood pressure 49 mm[Hg] DANIE ALBERTO MD FACP [address] [place] [address] 10-10-2023 10:57-0400 Signs/Symptoms Transfusion Reaction DANIE ALBERTO MD FACP [address] 10-10-2023 10:57-0400 Systolic blood pressure 119 mm[Hg] DANIE ALBERTO MD FACP [address] 10-10-2023 10:55-0400 Signs/Symptoms Transfusion Reaction No DANIE ALBERTO MD FACP [address] [place] [address] 10-10-2023 10:08-0400 Signs/Symptoms Transfusion Reaction DANIE ALBERTO MD FACP [address] [place] [address] 10-10-2023 09:09-0400 Diastolic blood pressure 56 mm[Hg] DANIE ALBERTO MD FACP [address] [place] [address] 10-10-2023 09:09-0400 Systolic blood pressure 143 mm[Hg] DANIE ALBERTO MD FACP [address] [place] [address] 10-10-2023 08:27-0400 Body temperature 97.34 [degF] DANIE ALBERTO MD FACP [address] [place] [address] 10-07-2023 17:14-0400 Body height 188 cm DANIE ALBERTO MD FACP [address] [place] [address] 10-07-2023 17:14-0400 Body weight 169 kg DANIE ALBERTO MD FACP [address] [place] [address] 10-07-2023 17:14-0400 Body weight 47.82 kg/m2 DANIE ALBERTO MD FACP [facility] 10-07-2023 15:16-0400 Body temperature 98.06 [degF] WU [employer] MACHINE TENDER-ENDOSCOPY TECH [facility] 10-07-2023 15:16-0400 Diastolic blood pressure 69 mm[Hg] WU [employer] MACHINE TENDER-ENDOSCOPY TECH [facility] 10-07-2023 15:16-0400 Heart rate 61 /min WU [employer] MACHINE TENDER-ENDOSCOPY TECH [address] [place] [address] 10-07-2023 15:16-0400 Respiratory rate 20 /min WU [employer] MACHINE TENDER-ENDOSCOPY TECH [facility] 10-07-2023 15:16-0400 Systolic blood pressure 111 mm[Hg] WU [employer] MACHINE TENDER-ENDOSCOPY TECH [facility] 10-07-2023 14:30-0400 Signs/Symptoms Transfusion Reaction No WU [employer] MACHINE TENDER-ENDOSCOPY TECH [facility] 10-07-2023 14:30-0400 Body temperature 98.06 [degF] WU [employer] MACHINE TENDER-ENDOSCOPY TECH [facility] 10-07-2023 14:30-0400 Diastolic blood pressure 69 mm[Hg] WU [employer] MACHINE TENDER-ENDOSCOPY TECH [facility] 10-07-2023 14:30-0400 Diastolic Blood Pressure Non-Invasive 69 mm[Hg] WU [employer] MACHINE TENDER-ENDOSCOPY TECH [facility] 10-07-2023 14:30-0400 Heart rate 61 /min WU [employer] MACHINE TENDER-ENDOSCOPY TECH [facility] 10-07-2023 14:30-0400 Respiratory rate 20 /min WU [employer] MACHINE TENDER-ENDOSCOPY TECH [facility] 10-07-2023 14:30-0400 Systolic blood pressure 111 mm[Hg] WU [employer] MACHINE TENDER-ENDOSCOPY TECH [facility] 10-07-2023 14:30-0400 Systolic Blood Pressure Non-Invasive 111 mm[Hg] WU [employer] MACHINE TENDER-ENDOSCOPY TECH [facility] 10-07-2023 14:13-0400 Heart rate 69 /min WU [employer] MACHINE TENDER-ENDOSCOPY TECH [facility] 10-07-2023 14:13-0400 Respiratory rate 24 /min WU [employer] MACHINE TENDER-ENDOSCOPY TECH [facility] 10-07-2023 14:00-0400 Body temperature 97.88 [degF] WU [employer] MACHINE TENDER-ENDOSCOPY TECH [facility] 10-07-2023 14:00-0400 Diastolic Blood Pressure Non-Invasive 70 mm[Hg] WU [employer] MACHINE TENDER-ENDOSCOPY TECH [facility] 10-07-2023 14:00-0400 Signs/Symptoms Transfusion Reaction WU [employer] MACHINE TENDER-ENDOSCOPY TECH [facility] 10-07-2023 14:00-0400 Systolic Blood Pressure Non-Invasive 116 mm[Hg] WU [employer] MACHINE TENDER-ENDOSCOPY TECH [facility] 10-07-2023 13:40-0400 Signs/Symptoms Transfusion Reaction WU [employer] MACHINE TENDER-ENDOSCOPY TECH [facility] 10-07-2023 13:10-0400 Diastolic Blood Pressure Non-Invasive 69 mm[Hg] WU [employer] MACHINE TENDER-ENDOSCOPY TECH [facility] 10-07-2023 13:10-0400 Systolic Blood Pressure Non-Invasive 112 mm[Hg] WU WADSWORTH [employer] DYEING MACHINE TENDER-ENDOSCOPY TECH [facility] 10-07-2023 12:10-0400 Reason For Taking VItal Signs WU W[employer]SW[employer] MACHINE TENDER-ENDOSCOPY TECH [facility] 10-07-2023 11:50-0400 Diastolic blood pressure 69 mm[Hg] WU W[employer]SW[employer]TH [employer] D[employer] MACHINE TENDER-ENDOSCOPY TECH [facility] 10-07-2023 11:50-0400 Inspected Blood Donor Unit Appearance WU WADSWORTH [employer] DYEING MACHINE TENDER-ENDOSCOPY TECH [facility] 10-07-2023 11:50-0400 Reason For Taking VItal Signs WU WADSWORTH [employer] D[employer]ING MACHINE TENDER-ENDOSCOPY TECH [facility] 10-07-2023 11:50-0400 Systolic blood pressure 116 mm[Hg] WU CONNELLER FELT DYEING MACHINE TENDER-ENDOSCOPY TECH [facility] 10-07-2023 11:50-0400 Transfusion Documentation Started/Paper WU WADSWORTH [employer] D[employer] MACHINE TENDER-ENDOSCOPY TECH [facility] 10-07-2023 10:37-0400 Heart rate 63 /min WU WADSWORTH [employer] D[employer] MACHINE TENDER-ENDOSCOPY TECH [facility] 10-07-2023 10:37-0400 Reason For Taking VItal Signs WU WADSWORTH [employer] D[employer]ING MACHINE TENDER-ENDOSCOPY TECH [facility] 10-07-2023 06:32-0400 Heart rate 62 /min WU KOER FELT DYEING MACHINE TENDER-ENDOSCOPY TECH [facility] 10-07-2023 03:22-0400 Heart rate 63 /min WU CONNELLER FELT DYEING MACHINE TENDER-ENDOSCOPY TECH [facility] 10-06-2023 07:01-0400 Body temperature 100.22 [degF] WU KAP[employer] DYE[employer] MACHINE TENDER-ENDOSCOPY TECH [facility] 10-06-2023 07:01-0400 Heart rate 72 /min WU K[employer] MACHINE TENDER-ENDOSCOPY TECH [facility] 10-06-2023 03:33-0400 Heart rate 71 /min WU [employer] MACHINE TENDER-ENDOSCOPY TECH [facility] 10-05-2023 23:11-0400 Heart rate 64 /min WU K[employer] MACHINE TENDER-ENDOSCOPY TECH [facility] 10-04-2023 13:07-0400 Body weight 46.6 kg/m2 WU [employer] MACHINE TENDER-ENDOSCOPY TECH [facility] 10-04-2023 05:18-0400 Body weight 170.4 kg WU K[employer]PER [employer] MACHINE TENDER-ENDOSCOPY TECH [facility] 10-03-2023 21:49-0400 Body height 188 cm WU K[employer]ING MACHINE TENDER-ENDOSCOPY TECH [facility] 10-03-2023 21:49-0400 Body weight 170.4 kg WU K[employer]PER [employer] D[employer] MACHINE TENDER-ENDOSCOPY TECH [facility] 10-03-2023 21:49-0400 Body weight 48.21 kg/m2 WU K[employer]PER [employer] D[employer] MACHINE TENDER-ENDOSCOPY TECH [facility] 10-03-2023 15:46-0400 Blood Pressure Cuff Size WU K[employer] MACHINE TENDER-ENDOSCOPY TECH [facility] 10-03-2023 15:46-0400 Blood Pressure Location WU KAPPER [employer] DYEING MACHINE TENDER-ENDOSCOPY TECH [facility] 10-03-2023 15:46-0400 Blood Pressure Method WU ANANTH FELT DYEING MACHINE TENDER-ENDOSCOPY TECH [facility] 03-16-2023 13:05-0400 Respiratory rate 20 /min DR ANDREW MORRIS MD [facility] 03-16-2023 12:45-0400 Diastolic Blood Pressure Non-Invasive [address] ANDREW MORRIS MD [facility] 03-16-2023 12:45-0400 Respiratory rate 20 /min DR ANDREW MORRIS MD [address] 03-16-2023 12:45-0400 Systolic Blood Pressure Non-Invasive [address] ANDREW MORRIS MD [address] 03-16-2023 10:56-0400 Diastolic Blood Pressure Non-Invasive [address] ANDREW MORRIS MD [facility] 03-16-2023 10:56-0400 Respiratory rate 20 /min DR ANDREW MORRIS MD [address] 03-16-2023 10:56-0400 Systolic Blood Pressure Non-Invasive [address] ANDREW MORRIS MD [facility] 03-16-2023 10:41-0400 Diastolic Blood Pressure Non-Invasive [address] ANDREW MORRIS MD [facility] 03-16-2023 10:41-0400 Systolic Blood Pressure Non-Invasive [address] ANDREW MORRIS MD [address] 03-16-2023 10:24-0400 Heart rate 54 /min DR ANDREW MORRIS MD [facility] 03-16-2023 10:08-0400 Heart rate 56 /min DR ANDREW MORRIS MD [address] 03-16-2023 06:47-0400 Body height 182.[address] ANDREW MORRIS MD [address] [place] [address] 03-16-2023 06:47-0400 Body temperature 97.52 [degF] DR ANDREW MORRIS MD [address] [place] [address] 03-16-2023 06:47-0400 Body weight 170.[address] ANDREW MORRIS MD [address] [place] [address] 03-16-2023 06:47-0400 Heart rate 55 /min DR ANDREW MORRIS MD [address] [place] [address] 01-26-2023 10:46-0400 Diastolic Blood Pressure Non-Invasive 88 1 NAHUM MARIN MD [address] [place] [address] 01-26-2023 10:46-0400 Reason For Taking VItal Signs NAHUM MARIN MD [address] [place] [address] 01-26-2023 10:46-0400 Systolic Blood Pressure Non-Invasive 160 1 NAHUM MARIN MD [address] [place] [address] 01-26-2023 10:23-0400 Diastolic Blood Pressure Non-Invasive 93 1 NAHUM MARIN MD [address] [place] [address] 01-26-2023 10:23-0400 Heart rate 76 /min NAHUM MARIN MD [address] [place] [address] 01-26-2023 10:23-0400 Reason For Taking VItal Signs NAHUM MARIN MD [address] [place] [address] 01-26-2023 10:23-0400 Respiratory rate 18 /min NAHUM MARIN MD [address] [place] [address] 01-26-2023 10:23-0400 Systolic Blood Pressure Non-Invasive 179 1 NAHUM MARIN MD [address] [place] [address] 01-26-2023 10:10-0400 Diastolic Blood Pressure Non-Invasive 93 1 NAHUM MARIN MD [address] [place] [address] 01-26-2023 10:10-0400 Heart rate 67 /min NHAUM MARIN MD [address] [place] [address] 01-26-2023 10:10-0400 Respiratory rate 18 /min NAHUM MARIN MD [address] [place] [address] 01-26-2023 10:10-0400 Systolic Blood Pressure Non-Invasive 153 1 NAHUM MARIN MD [address] [place] [address] 01-26-2023 10:08-0400 Body temperature 96.8 [degF] NAHUM MARIN MD [address] [place] [address] 01-26-2023 10:08-0400 Heart rate 66 /min NAHUM MARIN MD [address] [place] [address] 01-26-2023 10:08-0400 Respiratory rate 18 /min NAHUM MARIN MD [address] [place] [address] 01-26-2023 10:05-0400 Respiratory Rate - Anes 0 br/min NAHUM MARIN MD [address] [place] [address] 01-26-2023 09:55-0400 Respiratory Rate - Anes 0 br/min NAHUM MARIN MD [address] [place] [address] 01-26-2023 07:19-0400 Body height 182.9 cm NAHUM MARIN MD [address] [place] [address] 01-26-2023 07:19-0400 Body temperature 97.7 [degF] NAHUM MARIN MD [address] [place] [address] 01-26-2023 07:19-0400 Body weight 173.2 kg NAHUM MARIN MD [address] [place] [address] 01-26-2023 07:19-0400 Heart rate 90 /min NAHUM MARIN MD [address] [place] [address] 01-04-2023 09:45-0400 Diastolic Blood Pressure Non-Invasive 75 1 LILIA ERNANDEZ MD [facility] 01-04-2023 09:45-0400 Heart rate 69 /min LILIA ERNANDEZ MD [facility] 01-04-2023 09:45-0400 Respiratory rate 16 /min LILIA ERNANDEZ MD [facility] 01-04-2023 09:45-0400 Systolic Blood Pressure Non-Invasive 123 1 LILIA ERNANDEZ MD [facility] 01-04-2023 08:15-0400 Body temperature 97.88 [degF] LILIA ERNANDEZ MD [facility] 01-04-2023 08:15-0400 Body weight 171 kg LILIA ERNANDEZ MD [facility] 01-04-2023 08:15-0400 Diastolic Blood Pressure Non-Invasive 76 1 LILIA ERNANDEZ MD [facility] 01-04-2023 08:15-0400 Heart rate 82 /min LILIA ERNANDEZ MD [facility] 01-04-2023 08:15-0400 Respiratory rate 18 /min LILIA ERNANDEZ MD [facility] 01-04-2023 08:15-0400 Systolic Blood Pressure Non-Invasive 146 1 LILIA ERNANDEZ MD [facility] 10-24-2021 15:05-0400 Diastolic blood pressure 91 mm[Hg] DR MARLINE PENDLETON MD [facility] 10-24-2021 15:05-0400 Heart rate 83 /min DR MARLINE PENDLETON MD [facility] 04-15-2022 15:05-0400 Respiratory rate 16 /min DR MARLINE PENDLETON MD [facility] 10-24-2021 15:05-0400 Systolic blood pressure 150 mm[Hg] DR MARLINE PENDLETON MD [facility] 10-24-2021 14:35-0400 Diastolic blood pressure 88 mm[Hg] DR MARLINE PENDLETON MD [facility] 10-24-2021 14:35-0400 Heart rate 94 /min DR MARLINE PENDLETON MD [facility] 10-24-2021 14:35-0400 Respiratory rate 16 /min DR MARLINE PENDLETON MD [facility] 10-24-2021 14:35-0400 Systolic blood pressure 150 mm[Hg] DR MARLIEN PENDLETON MD [facility] 10-24-2021 14:05-0400 Diastolic blood pressure 92 mm[Hg] DR MARLINE PENDLETON MD [facility] 10-24-2021 14:05-0400 Heart rate 79 /min DR MARLINE PENDLETON MD [facility] 10-24-2021 14:05-0400 Respiratory rate 16 /min DR MARLINE PENDLETON MD [facility] 10-24-2021 14:05-0400 Systolic blood pressure 145 mm[Hg] DR MARLINE PENDLETON MD [facility] 10-24-2021 13:35-0400 Mean blood pressure 97 mm[Hg] DR MARLINE PENDLETON MD [facility] 10-24-2021 13:20-0400 Mean blood pressure 89 mm[Hg] DR MARLINE PENDLETON MD [facility] 10-24-2021 13:00-0400 Mean blood pressure 100 mm[Hg] DR MARLINE PENDLETON MD [facility] 10-24-2021 10:45-0400 Body height [address] MARLINE PENDLETON MD [facility] 10-24-2021 10:45-0400 Body temperature 97.34 [degF] DR MARLINE PENDLETON MD [facility] 10-24-2021 10:45-0400 Body weight 156.[address] MARLINE PENDLETON MD [facility] 10-24-2021 10:45-0400 Body weight 44.28 kg/m2 DR MARLINE PENDLETON MD [facility] 10-24-2021 10:45-0400 diastolic 89 mm[Hg] DR MARLINE PENDLETON MD [facility] 10-24-2021 10:45-0400 Heart rate 93 /min DR MARLINE PENDLETON MD [facility] 10-24-2021 10:45-0400 systolic 148 mm[Hg] DR MARLINE PENDLETON MD [facility] Encounters Encounter Date Encounter Type Care Provider Facility Start: 04-25-2025 ambulatory Kathleen Herzog Facility:[facility] Start: 04-04-2025 End: 04-10-[address] Moshe Kitchen MD Work Phone: [facility] Start: 04-04-2025 End: 04-10-[address] Aaron Shannon DPJuan Daniel [facility] Work Phone: Start: 03-11-2025 End: 03-12-2025 Emergency department patient visit Dr. Moshe Kitchen MD Work Phone: -Emergency Department Work Phone: Start: 03-07-2025 End: 03-11-[address] Moshe Kitchen MD Work Phone: [facility] Start: 03-07-2025 End: 03-11-[address] Aaron Shannon DPJuan Daniel [facility] Work Phone: Start: 01-24-2025 End: 02-08-[address] Aaron Shannon DPJuan Daniel [facility] Work Phone: Start: 01-24-2025 End: 02-08-[address] Kathleen Herzog [facility] Start: 01-10-2025 End: 01-11-2025 [facility] Start: 01-06-2025 Non-patient / Non-visit [facility] Work Phone: Start: 01-06-2025 Dr. [facility] Work Phone: Start: 01-05-2025 ambulatory Allie Swann Facility:[facility] Start: 01-05-2025 End: 01-06-2025 Evaluation and management of inpatient Dr. Juan Cunha DO Work Phone: -[facility] Start: 01-05-2025 End: 01-06-2025 Dr. Allie Swann MD -[facility] Work Phone: Start: 01-03-2025 End: 01-08-[address] Aaron Shannon DPM -[facility] Work Phone: Start: 01-03-2025 End: 01-08-2025 Dr. Aaron Shannon DPM [facility] Work Phone: Start: 01-03-2025 End: 01-08-[address] Juan Cunha DO Work Phone: -[facility] Start: 01-01-2025 ambulatory [facility] Facility: [facility] [place] Start: 11-29-2024 End: 12-09-[address] Aaron Shannon DPM -Wound Healing Ce nter Work Phone: Start: 11-29-2024 End: 12-09-2024 Dr. Aaron Shannon DPJuan Daniel -Wound Healing Je ter Work Phone: Start: 11-29-2024 End: 12-09-[address] 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 Aaron Shannon DPM -Wound Healing Ce nter Work Phone: Start: 11-08-2024 End: 11-08-2024 Dr. Aaron Shannon DPJuan Daniel -Wound Healing Je ter Work Phone: Start: 11-01-2024 End: 11-01-2024 ambulatory CHRISTALEYDA DOWNS Facility:[id number] Start: 10-23-2024 End: 10-24-2024 Emergency department patient visit CHAYO BRANNON MD Facility:[facility] Start: 10-18-2024 ambulatory [facility] [place] Facility:[facility] [place] Start: 10-18-2024 Non-patient / Non-visit Dr. Dane Sun MD [facility] Start: 10-18-2024 Dr. Dane Sun MD [facility] Start: 10-18-2024 Non-patient / Non-[facility] Work Phone: Start: 10-18-2024 Dr. Vivek Parks Inpatient Physicians Work Phone: Start: 10-17-2024 Non-patient / Non-visit Dr. Vivek Jean-Baptiste Inpatient Physicians Work Phone: Start: 10-17-2024 Dr. Vivek Gates DO [facility] Work Phone: Start: 10-16-2024 ambulatory [facility] [place] Facility:[facility] Start: 10-16-2024 Non-patient / Non-visit Dr. Vivek Cárdenas MD [facility] Start: 10-16-2024 Dr. Vivek Cárdenas MD [facility] Start: 10-16-2024 Non-patient / Non-visit Dr. Sommer Xie MD [facility] Work Phone: Start: 10-16-2024 Dr. Vivek Gates DO [facility] Work Phone: Start: 10-15-2024 Non-patient / Non-visit Dr. Colby May MD [facility] Work Phone: Start: 10-15-2024 Dr. Cloby May MD [facility] Inpatient Physicians Work Phone: Start: 10-14-2024 ambulatory [facility] [place] Facility:[facility] Start: 10-14-2024 Non-patient / Non-visit Dr. Suraj Quinn MD -[facility] Start: 10-14-2024 Dr. Suraj Quinn MD -[facility] Start: 10-14-2024 Non-patient / Non-visit Dr. Colby May MD -[place] [facility] Work Phone: Start: 10-14-2024 Dr. Colby May MD -[facility] Inpatient Physicians Work Phone: Start: 10-13-2024 ambulatory [facility] [place] Facility:[facility] Start: 10-13-2024 End: 10-18-2024 Evaluation and management of inpatient Dr. Monika Garcias MD -Medical Surgical 3 Work Phone: Start: 10-13-2024 End: 10-18-2024 Dr. Vivek Gates DO -Medical Surgical 3 Work Phone: Start: 10-12-2024 Non-patient / Non-visit Dr. Dl Neely MD -[place] [facility] Work Phone: Start: 10-12-2024 Dr. Dl Neely MD -Located within [facility] Inpatient Physicians Work Phone: Start: 10-11-2024 Non-patient / Non-visit Dr. Dl Neely MD -[place] [facility] Work Phone: Start: 10-11-2024 Dr. Dl Neely MD -Located within [facility] Inpatient Physicians Work Phone: Start: 10-10-2024 ambulatory [facility] [place] Facility:[facility] Start: 10-10-2024 End: 10-12-2024 Evaluation and management of inpatient Dr. Monika Garcias MD -Progressive Care Unit Work Phone: Start: 10-10-2024 End: 10-12-2024 Dr. Dl Neely MD -Progressive Care Unit Work Phone: Start: 09-27-2024 End: 10-09-[address] Moshe Kitchen MD Work Phone: [facility] Work Phone: Start: 09-27-2024 End: 10-09-[address] Aaron Shannon DPJuan Daniel -Wound Healing Ce nter Work Phone: Start: 09-27-2024 End: 10-09-2024 Dr. Aaron FREEMANM -Wound Healing Je ter Work Phone: Start: 09-22-2024 End: 09-22-2024 ambulatory ISABELA Frances AUNDREA Facility:[id number] Start: 09-22-2024 End: 09-22-2024 Office outpatient visit 25 minutes Isabela Campbell FELT DYEING MACHINE TENDER.ENDOSCOPY TECH Work Phone: Urology Comment on above: BPH with obstruction /lower urinary tract symptoms (Primary Dx); Chronic retention of urine Start: 09-20-2024 End: 09-21-2024 Telephone encounter Isabela Campbell FELT DYEING MACHINE TENDER.ENDOSCOPY TECH Work Phone: Urology Comment on above: Refill Request Start: 09-16-2024 End: 09-17-2024 Dr. Juan Cunha DO -Emergency Departmen t Work Phone: Start: 09-16-2024 End: 09-17-2024 Emergency department patient visit Dr. Ignacia Reyna DO Work Phone: -Emergency Department Work Phone: Start: 09-13-[address] Aaron titus DPM -Wound Healing Center Work Phone: Start: 08-30-2024 End: 09-08-2024 ambulatory Aaron Shannon Facility:[facility] Start: 08-30-2024 End: 09-08-[address] Aaron Shannon DPM -Wound Healing Ce nter Work Phone: Start: 08-22-2024 End: 08-22-2024 Telephone encounter Isabela Campbell FELT DYEING MACHINE TENDER.ENDOSCOPY TECH Work Phone: Urology Start: 07-28-2024 End: 07-29-2024 Emergency department patient visit DANIE ESQUEDA DO [facility] Start: 07-26-2024 End: 08-11-2024 ambulatory Aaron [place] Facility:[facility] Start: 07-26-2024 End: 08-11-[address] Aaron Shannon DPM -Wound Healing Ce nter Work Phone: Start: 07-13-2024 End: 07-13-2024 Telephone encounter Isabela Campbell APRN.ENDOSCOPY TECH Work Phone: Urology Comment on above: Appointment Start: 07-11-2024 End: 07-11-2024 ambulatory [facility] Facility:[facility] Start: 07-11-2024 End: 07-11-[address] Aaron Shannon DPM -Wound Healing Ce nter Work Phone: Start: 06-07-2024 End: 06-10-2024 ambulatory Aaron [place] Facility:[facility] Start: 06-07-2024 End: 06-10-[address] Aaron Shannon DPM -Wound Healing Ce nter Work Phone: Start: 06-05-2024 End: 06-05-2024 Admission to same day surgery center Dr. Aaron Shannon DPM -Surgical Day Care Start: 06-05-2024 End: 06-05-2024 ambulatory Aaron [place] Facility:[facility] Start: 05-10-2024 End: 05-11-2024 ambulatory Aaron [place] Facility:[facility] Start: 04-20-2024 End: 04-20-2024 Telephone encounter Donovan Edmondson MD Work Phone: Hematology/Oncology Comment on above: Appointment Start: 04-06-2024 End: 04-08-2024 Emergency department patient visit DR ROB MONTENEGRO DO Facility:[facility] Start: 04-06-2024 End: 04-08-2024 Observation MIRELA OLIVO FELT DYEING MACHINE TENDER-ENDOSCOPY TECH [facility] Start: 04-05-2024 End: 04-09-2024 ambulatory KELLIE BENITES FELT DYEING MACHINE TENDER-ENDOSCOPY TECH Facility:[facility] Start: 04-05-2024 End: 04-09-2024 Outreach Lab KELLIE BENITES FELT DYEING MACHINE TENDER-ENDOSCOPY TECH [facility] Start: 04-04-2024 End: 04-05-2024 Emergency department patient visit POORNIMA HINKLE DO [facility] Start: 03-31-2024 End: 04-08-2024 ambulatory KELLIE BENITES FELT DYEING MACHINE TENDER-ENDOSCOPY TECH Facility:[facility] Start: 03-15-2024 End: 03-15-2024 ambulatory GAVINO AG Facility:B Start: 03-15-2024 End: 03-15-2024 Patient encounter procedure GAVINO AG FELT DYEING MACHINE TENDER-ENDOSCOPY TECH [facility] Start: 02-17-2024 End: 02-17-2024 ambulatory SHAR DOWNS Facility:[id number] Start: 02-17-2024 End: 02-17-2024 Patient encounter procedure Shar Downs MD Work Phone: Urology Comment on above: Difficulty urinating (Primary Dx) Start: 01-28-2024 End: 01-28-2024 ambulatory KELLIE BENITES FELT 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 MACHINE 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-ENDOSCOPY TECH Facility:B Start: 01-28-2024 End: 01-28-2024 Patient encounter procedure GAVINO AG FELT DYEING MACHINE TENDER-ENDOSCOPY TECH [facility] Start: 01-21-2024 End: 01-21-2024 Emergency department patient visit FERNANDO ZEE MD [facility] Start: 01-19-2024 Telephone encounter Que Downs MD Work Phone: Urology Comment on above: Appointment Start: 01-12-2024 End: 01-12-2024 Patient encounter procedure Shar Downs MD Work Phone: Urology Comment on above: Difficulty urinating (Primary Dx); Benign prostatic hyperplasia with urinary retention Start: 01-12-2024 End: 01-12-2024 ambulatory SHAR DOWNS Facility:[id number] Start: 11-30-2023 ambulatory KELLIE FERGUSONSHILOH FELT DYEING MACHINE TENDER-ENDOSCOPY TECH Fa cility:A Start: 11-13-2023 End: 11-14-2023 Emergency department patient visit FERNANDO ZEE MD [facility] Start: 11-03-2023 Non-patient / Non-visit ANCILLARY SERVICES MANAGER THERAPY-C Kellie Baltes ANCILLARY SERVICES MANAGER THERAPY Work Phone: [facility] Start: 11-03-2023 Non-patient / Non-visit ANCILLARY SERVICES MANAGER THERAPY-C Kellie Baltes ANCILLARY SERVICES MANAGER THERAPY Work Phone: [facility] [facility] Work Phone: Start: 11-02-2023 Non-patient / Non-visit ANCILLARY SERVICES MANAGER THERAPY-C Kellie Baltes ANCILLARY SERVICES MANAGER THERAPY Work Phone: [facility] [facility] Work Phone: Start: 11-02-2023 Non-patient / Non-visit ANCILLARY SERVICES MANAGER THERAPY-C Kellie Baltes ANCILLARY SERVICES MANAGER THERAPY Work Phone: [facility] Start: 11-01-2023 Non-patient / Non-visit ANCILLARY SERVICES MANAGER THERAPY-C Kellie Baltes ANCILLARY SERVICES MANAGER THERAPY Work Phone: [facility] Start: 11-01-2023 Non-patient / Non-visit ANCILLARY SERVICES MANAGER THERAPY-C Kellie Baltes ANCILLARY SERVICES MANAGER THERAPY Work Phone: [facility] Work Phone: Start: 10-31-2023 Non-patient / Non-visit ANCILLARY SERVICES MANAGER THERAPY-C Kellie Baltes ANCILLARY SERVICES MANAGER THERAPY Work Phone: [facility] Start: 10-31-2023 Non-patient / Non-visit ANCILLARY SERVICES MANAGER THERAPY-C Kellie Baltes ANCILLARY SERVICES MANAGER THERAPY Work Phone: [facility] Work Phone: Start: 10-30-2023 Non-patient / Non-visit ANCILLARY SERVICES MANAGER THERAPY-C Kellie Benites ANCILLARY SERVICES MANAGER THERAPY Work Phone: [facility] [facility] Work Phone: Start: 10-29-2023 Non-patient / Non-visit ANCILLARY SERVICES MANAGER THERAPY-C Kellie Benites ANCILLARY SERVICES MANAGER THERAPY Work Phone: [facility] [facility] Work Phone: Start: 10-28-2023 End: 11-03-2023 Evaluation and management of inpatient [facility]-Medical Surgical 3 Work Phone: Start: 10-28-2023 End: 11-03-2023 observation encounter ANCILLARY SERVICES MANAGER THERAPY-C Kellie Benites ANCILLARY SERVICES MANAGER THERAPY Work Phone: [facility] Work Phone: Start: 10-27-2023 ambulatory KELLIE BENITES FELT DYEING MACHINE TENDER-ENDOSCOPY TECH Fa cility:A Start: 10-26-2023 Telephone encounter Donovan whelan MD Work Phone: Hematology/Oncology Comment on above: New Patient Start: 10-13-2023 End: 10-27-2023 Evaluation and management of inpatient DANIE ALBERTO MD FACP [facility] Start: 10-07-2023 End: 10-13-2023 Evaluation and management of inpatient DANIE ALBERTO MD FACP [facility] Start: 10-03-2023 End: 10-07-2023 Evaluation and management of inpatient WU WADSWORTH FELT DYEING MACHINE TENDER-ENDOSCOPY TECH [facility] Start: 09-30-2023 ambulatory KELLIE BENITES FELT DYEING MACHINE TENDER-ENDOSCOPY TECH Fa cility:B Start: 07-23-2023 End: 07-23-2023 ambulatory KELLIE BENITES FELT DYEING MACHINE TENDER-ENDOSCOPY TECH Facility:B Start: 07-23-2023 End: 07-23-2023 Patient encounter procedure KELLIE BENITES FELT DYEING MACHINE TENDER-ENDOSCOPY TECH [facility] Start: 07-13-2023 ambulatory KELLIE BENITES FELT DYEING MACHINE TENDER-ENDOSCOPY TECH Fa cility:B Start: 06-11-2023 End: 06-11-2023 ambulatory KELLIE BENITES FELT DYEING MACHINE TENDER-ENDOSCOPY TECH Facility:B Start: 06-11-2023 End: 06-11-2023 Patient encounter procedure KELLIE BENITES FELT DYEING MACHINE TENDER-ENDOSCOPY TECH [facility] Start: 05-13-2023 End: 05-13-2023 ambulatory KELLIE BENITES FELT DYEING MACHINE TENDER-ENDOSCOPY TECH Facility:B Start: 04-15-2023 End: 04-15-2023 ambulatory KELLIE DELMIS FELT DYEING MACHINE TENDER-ENDOSCOPY TECH Facility:B Start: 03-16-2023 End: 03-16-[address] ANDREW MORRIS MD [facility] Start: 03-08-2023 End: 03-08-2023 Patient encounter procedure GAVINO AG FELT DYEING MACHINE TENDER-ENDOSCOPY TECH [facility] Start: 01-26-2023 End: 01-26-2023 SAME DAY STAY NAHUM MARIN MD [facility] Start: 01-20-2023 End: 01-20-2023 Patient encounter procedure GAVINO AG FELT DYEING MACHINE TENDER-ENDOSCOPY TECH [facility] Start: 01-08-2023 End: 01-08-2023 Patient encounter procedure KELLIE BENITES FELT DYEING MACHINE TENDER-ENDOSCOPY TECH [facility] Start: 01-04-2023 End: 01-04-2023 Emergency department patient visit LILIA ERNANDEZ MD [facility] Start: 05-25-2022 End: 05-25-2022 Patient encounter procedure GAVINO AG FELT DYEING MACHINE TENDER-ENDOSCOPY TECH [facility] Start: 05-12-2022 End: 05-12-2022 Patient encounter procedure GAVINO AG FELT DYEING MACHINE TENDER-ENDOSCOPY TECH [facility] Start: 03-31-2022 End: 03-31-2022 Patient encounter procedure YADIEL TORRES FELT DYEING MACHINE TENDER-ENDOSCOPY TECH [facility] Start: 03-02-2022 End: 03-02-2022 Patient encounter procedure YADIEL TORRES FELT DYEING MACHINE TENDER-ENDOSCOPY TECH [facility] Start: 11-25-2021 End: 11-25-[address] SANDRA BIANCHI MD [facility] Start: 11-03-2021 End: 11-03-[address] MARLINE PENDLETON MD [facility] Start: 10-24-2021 End: 10-24-[address] MARLINE PENDLETON MD [facility] Start: 09-09-2021 End: 09-09-[address] MARLINE PENDLETON MD [facility] Start: 08-05-2021 End: 08-05-[address] SANDRA BIANCHI MD [facility] Start: 07-02-2021 End: 07-02-2021 Patient encounter procedure KELLIE BENITES FELT DYEING MACHINE TENDER-ENDOSCOPY TECH [facility] Start: 06-24-2021 End: 06-24-2021 Patient encounter procedure ARCHIE LINO FELT DYEING MACHINE TENDER-ENDOSCOPY TECH [facility] Start: 06-23-2021 End: 06-27-2021 Outreach Lab ARCHIE LINO FELT DYEING MACHINE TENDER-ENDOSCOPY TECH [facility] Start: 06-09-2021 End: 06-09-[address] DELORIS GUTIERRES DO [facility] Start: 06-06-2021 End: 06-06-[address] DELORIS GUTIERRES DO [facility] Start: 06-06-2021 End: 06-06-2021 Patient encounter procedure YADIEL BRIAN FELT DYEING MACHINE TENDER-ENDOSCOPY TECH [facility] Start: 03-25-2012 End: 03-25-2012 Patient encounter procedure Elda Wen (Hist) [place] Work Phone: [facility] Start: 03-25-2012 Results Only Elda flores (Hist) [place] Work Phone: [facility] Start: 07-11-2011 End: 07-11-2011 Patient encounter procedure Charcharismautchris Wen (Hist) [place] Work Phone: [facility] Start: 07-11-2011 Results Only Elda flores (Hist) [place] Work Phone: [facility] Procedures Date Procedure Procedure Detail Performing Clinician Start: 03-12-[address] Moshe Kitchen MD Work Phone: Start: 03-12-2025 Urnls dip stick/tabl et reagent auto microscopy Dr. Moshe Kitchen MD Work Phone: Start: 03-11-2025 Plain X-ray abdomen Dr. Moshe Kitchen MD Work Phone: Start: 03-11-[address] Moshe Kitchen MD Work Phone: Start: 03-11-2025 CT of head without contrast Dr. Moshe Kitchen MD Work Phone: Start: 03-11-2025 SARS-CoV-2, Influenz a & RSV (PCR) Dr. Moshe Kitchen MD Work Phone: Start: 01-06-2025 Blood count smear mc rscp [...] Urine microscopy: red cells Dr. Juan Cunha Work Phone: Start: 01-05-2025 Urnls dip stick/tabl et reagent auto microscopy Dr. Juan Cunha Work Phone: Start: 01-05-2025 CT of head without contrast Dr. Juan Cunha Work Phone: Start: 11-21-2024 Creatinine blood [facility] Start: 10-18-2024 Blood count smear mc rscp w/mnl difrntl wbc count Dr. Juan Cunha Work Phone: Start: 10-18-2024 Estimated creatinine clearance [...] Moshe Kitchen MD Work Phone: Start: 10-10-2024 Calculation of [...] cervical spine wi thout contrast Dr. Ignacia Reyan DO Work Phone: Start: 09-16-2024 Computed tomography [...] Start: 07-26-2024 Microbial culture, routine Dr. Ignacia eRyna DO Work Phone: Start: 12-14-2023 Continuous wave ultr asonic Doppler FERNANDO ZEE MD Comment on above: [facility]-see scanned repo rt Start: 11-02-2023 Colonoscopy ANCILLARY SERVICES MANAGER THERAPY-C Kellie Benites ANCILLARY SERVICES MANAGER THERAPY Work Phone: Start: 10-28-2023 Plain chest X-ray Start: 07-12-2022 Cardioversion GAVINO JARA FELT DYEING MACHINE TENDER-[facility] Start: 03-25-2012 CONVERTED SURGICAL PATHOLOGY [facility] (Hist) [place] Work Phone: Start: 07-11-2011 CONVERT[facility] SURGICAL [facility] [place] Work Phone: Aortic valve structu re (body structure) YADIEL TORRES FELT DYEING MACHINE TENDER-ENDOSCOPY TECH Comment on above: pig valve Echocardiography MIRELA SO FELT DYEING MACHINE TENDER-ENDOSCOPY TECH Excision of colon YADIEL SPIVEY FELT DYEING MACHINE TENDER-ENDOSCOPY TECH History of repair of inguinal hernia History of right inguinal hernia repair Dr. Ignacia Reyna DO Work Phone: Insertion of inferio r vena caval filter YADIEL TORRES FELT DYEING MACHINE TENDER-ENDOSCOPY TECH Removal of inferior vena caval filter YADIEL TORRES FELT DYEING MACHINE TENDER-ENDOSCOPY TECH Repair of inguinal hernia CHANTE TORRES FELT DYEING MACHINE TENDER-ENDOSCOPY TECH Comment on above: Right x3 Urinary bladder stru cture (body structure) YADIEL TORRES FELT DYEING MACHINE TENDER-ENDOSCOPY TECH Plan of Treatment Date Care Activity Detail Author Start: 01-04-2033 Urine microalbumin profile DTa P,Tdap,Td Vaccine (2 - Td or Tdap) [facility] Start: 2030 RSV Vaccine (1 - 1-d ose 75+ series) RSV Vaccine (1 - 1-dose 75+ series) [facility] Start: 11-24-2026 Diabetes Screening Diabetes Screenin g [facility] Start: 09-19-2025 End: 09-19-2025 Patient encounter procedure 09/19/2025 10:15 AM EDT Office Visit Urology [address] [place] [address] Shar Downs MD [address] [place] [id number] one year to discuss procedure Urology Comment on above: one year to discuss procedure Start: 03-12-2025 Influenza vaccination Influenz a Vaccine (Season Ended) [facility] Start: 03-12-2025 End: 03-12-2025 [facility] Start: 03-12-2025 [facility] Start: 03-11-2025 Plain X-ray abdomen Acute [employer] Chest [facility] Start: 03-11-2025 XR Chest and Abdomen Views [facility] Start: 03-11-2025 [facility] Start: 01-06-2025 [facility] Start: 01-06-2025 Patient discharge [facility] Start: 01-05-2025 Wound care [facility] Start: 01-05-2025 Following clinical p athway protocol [facility] Start: 01-05-2025 Assessment of risk o f venous thromboembolism [facility] Start: 01-05-2025 Care regimes management [facility] Start: 01-05-2025 Inhalation therapy procedure [facility] Start: 01-05-2025 Insertion of cathete r into peripheral vein [facility] Start: 01-05-2025 Measuring intake and output [facility] Start: 01-05-2025 Notification of physician [facility] Start: 01-05-2025 Providing care accor ding to standard [facility] Start: 01-05-2025 Provision of activit y privileges [facility] Start: 01-05-2025 Referral for physica l therapy [facility] Start: 01-05-2025 Referral to occupati onal therapist [facility] Start: 01-05-2025 Referral to service [facility] Start: 01-05-2025 End: 01-05-2025 [facility] Start: 01-05-2025 Hospital admission, emergency, from emergency room, medical nature [facility] Start: 01-05-2025 Verification routine [facility] Start: 01-05-2025 Admission procedure [facility] Start: 01-05-2025 Urine culture [facility] Start: 01-05-2025 End: 01-05-2025 [facility] Start: 01-05-2025 Patient referral to dietitian [facility] Start: 12-07-2024 End: 12-07-2024 Patient encounter procedure 12/07/2024 8:00 AM EDT Office Visit Urology [address] [place] [address] Shar Downs MD [address] [place] [address] 11/15 LVM to call the office to r/s due to being out Urology Comment on above: 11/15 LVM to call the office to r/s due to being out Start: 10-18-2024 Patient discharge [facility] Start: 10-17-2024 [facility] Start: 10-16-2024 Blood culture Blood Culture [facility] Start: 10-16-2024 End: 10-16-2024 [facility] Start: 10-16-2024 Care regimes management [facility] Start: 10-16-2024 Notification of physician [facility] Start: 10-16-2024 Referral to service [facility] Start: 10-16-2024 Consultation [facility] Start: 10-15-2024 Wound care [facility] Start: 10-14-2024 Consultation for treatment [facility] Start: 10-14-2024 Referral to gasoline truck operator [facility] Start: 10-13-2024 Consultation for treatment [facility] Start: 10-13-2024 Following clinical p davidway protocol [facility] Start: 10-13-2024 Assessment of risk o f venous thromboembolism [facility] Start: 10-13-2024 Consultation [facility] Start: 10-13-2024 Insertion of cathete r into peripheral vein [facility] Start: 10-13-2024 Providing care accor ding to standard [facility] Start: 10-13-2024 Provision of activit y privileges [facility] Start: 10-13-2024 Referral to occupati onal therapist [facility] Start: 10-13-2024 Referral to service [facility] Start: 10-13-2024 [facility] Start: 10-13-2024 Hospital admission, emergency, from emergency room, medical nature [facility] Start: 10-13-2024 Bacteria identified in Blood by Culture Blood Culture [facility] Start: 10-13-2024 Admission procedure [facility] Start: 10-13-2024 Verification routine [facility] Start: 10-13-2024 [facility] Start: 10-12-2024 Patient discharge [facility] Start: 10-11-2024 Consultation for treatment [facility] Start: 10-11-2024 [facility] Start: 10-11-2024 Application of inter mittent pneumatic compression device [facility] Start: 10-11-2024 Continuous positive airway pressure ventilation treatment [facility] Start: 10-10-2024 [facility] Start: 10-10-2024 Verification routine [facility] Start: 10-10-2024 Assessment of risk o f venous thromboembolism [facility] Start: 10-10-2024 Care regimes management [facility] Start: 10-10-2024 Insertion of cathete r into peripheral vein [facility] [facility] Start: 10-10-2024 Measuring intake and output [facility] Start: 10-10-2024 Notification of physician [facility] Start: 10-10-2024 Providing care accor ding to standard [facility] Start: 10-10-2024 Provision of activit y privileges [facility] Start: 10-10-2024 Referral to occupati onal therapist [facility] Start: 10-10-2024 Referral to service [facility] Start: 10-10-2024 End: 10-10-2024 [facility] Start: 10-10-2024 Admission procedure [facility] Start: 10-10-2024 CT Abdomen and Pelvi s WO contrast [facility] Start: 10-10-2024 CT of abdomen and pe lvis without contrast Abdomen/Pelvis without Cont [facility] Start: 10-10-2024 Hospital admission, emergency, from emergency room, medical nature [facility] Start: 10-10-2024 [facility] Start: 10-10-2024 End: 10-10-2024 [facility] Start: 10-10-2024 Bacteria identified in Blood by Culture Blood Culture [facility] Start: 10-10-2024 Bacteria identified in Urine by Culture Urine Culture [facility] Start: 10-10-2024 Blood culture Blood Culture [facility] Start: 10-10-2024 Inhalation therapy procedure [facility] Start: 09-22-2024 End: 09-22-2024 Patient encounter procedure 09/22/2024 8:40 AM EDT Office Visit Urology [address] [place] [address] Isabela Campbell, FELT DYEING MACHINE TENDER.ENDOSCOPY TECH [address] [place] [address] 6 month follow up Urology Comment on above: 6 month follow up Start: 09-17-2024 [facility] Start: 09-16-2024 End: 09-16-2024 [facility] Start: 09-16-2024 Bacteria identified in Blood by Culture Blood Culture [facility] Start: 09-16-2024 Bacteria identified in Urine by Culture Urine Culture [facility] Start: 08-22-2024 End: 08-22-2024 Patient encounter procedure 08/22/2024 1:40 PM EST Office Visit Urology [address] [place] [address] Isabela Campbell, FELT DYEING MACHINE TENDER.ENDOSCOPY TECH [address] [place], [place] [id number] 6 month follow up Urology Comment on above: 6 month follow up Start: 07-12-2024 Advance Directive Discussion Advance Directive Discussion [facility] Start: 06-05-2024 Patient discharge [facility] Start: 06-05-2024 Anes integ musc & nr v head neck&posterior trunk ANESTH HEAD/NECK/PTRUNK [facility] Start: 06-05-2024 Priscilla skn sub grft t/a /l area/100sq cm /<1st 25 SKIN SUB GRAFT TRNK/ARM/LEG [facility] Start: 06-05-2024 Prep site trunk/arm/ leg 1st 100 sq cm/1pct WOUND PREP TRK/ARM/LEG [facility] Start: 03-12-2024 Covid-19 Vaccine ( season) Covid-19 Vaccine ( season) [facility] Start: 03-12-2024 Influenza vaccination C [facility] Start: 02-17-2024 End: 02-17-2024 Patient encounter procedure 02/17/2024 8:30 AM EDT Office Visit Urology [facility] [place] [id number] Shar Downs MD [address] [place], [place] [id number] [facility] Comment on above: [facility] Start: 01-26-2024 End: 01-26-2024 Patient encounter procedure 01/26/2024 2:30 PM EDT Office Visit Urology [address] [place], [place] [id number] Shar Downs MD [address] [place], [place] [phone] [facility] Comment on above: [facility] Start: 11-03-2023 Patient discharge [facility] Start: 11-01-2023 [facility] Start: 11-01-2023 Referral for further care [facility] Start: 10-31-2023 Referral to gastroenterology service [facility] Start: 10-29-2023 Consultation for treatment [facility] Start: 10-29-2023 Wound care [facility] Start: 10-28-2023 Following clinical p athway protocol [facility] Start: 10-28-2023 Application of elast ic bandage [facility] Start: 10-28-2023 Assessment of risk o f venous thromboembolism [facility] Start: 10-28-2023 Care regimes management [facility] Start: 10-28-2023 Continuous positive airway pressure ventilation treatment [facility] Start: 10-28-2023 Elevation of affecte d extremity [facility] Start: 10-28-2023 Fall prevention [facility] Start: 10-28-2023 Incentive spirometry [facility] Start: 10-28-2023 Inhalation therapy procedure [facility] Start: 10-28-2023 Insertion of cathete r into peripheral vein [facility] Start: 10-28-2023 Introduction of urin silva catheter [facility] Start: 10-28-2023 Measuring intake and output [facility] Start: 10-28-2023 Notification of physician [facility] Start: 10-28-2023 Oxygen therapy [facility] Start: 10-28-2023 Providing care accor ding to standard [facility] Start: 10-28-2023 Provision of activit y privileges [facility] Start: 10-28-2023 Referral to occupati onal therapist [facility] Start: 10-28-2023 Referral to service [facility] Start: 10-28-2023 [facility] Start: 10-28-2023 Verification routine [facility] Start: 10-28-2023 Admission procedure [facility] Start: 10-28-2023 Hospital admission, emergency, from emergency room, medical nature [facility] Start: 10-28-2023 Referral to service [facility] Start: 10-28-2023 [facility] Start: 10-28-2023 Patient referral to dietitian [facility] Start: 07-12-2023 Advance Directive Discussion Advance Directive Discussion [facility] Start: 07-12-2023 Behavioral Health Screening Be havioral Health Screening [facility] Start: 06-13-2023 Pneumococcal Vaccine : 65+ (3 of 3 - PPSV23 or PCV20) Pneumococcal Vaccine: 65+ (3 of 3 - PPSV23 or PCV20) [facility] Start: 03-12-2023 Covid-19 Vaccine ( season) Covid-19 Vaccine ( season) [facility] Start: 03-12-2023 Covid-19 Vaccine ( season) Covid-19 Vaccine ( season) [facility] Start: 2020 Pneumococcal Vaccine : 65+ (1 of 1 - PCV) Pneumococcal Vaccine: 65+ (1 of 1 - PCV) [facility] Start: 08-11-2017 Shingrix Vaccine (2 of 3) Sage grix Vaccine (2 of 3) [facility] Start: 02-01-2016 Diabetes Screening Diabetes Screenin g [facility] Start: 2015 RSV Vaccine (1 - 1-d ose 60+ series) RSV Vaccine (1 - 1-dose 60+ series) [facility] Start: 2015 RSV Vaccine (1 - Ris k 60-74 years 1-dose series) RSV Vaccine (1 - Risk 60-74 years 1-dose series) [facility] Start: 2010 Prostate specific an tigen measurement Prostate Cancer Screening Discussion [facility] Start: 2005 Shingrix Vaccine (1 of 2) Sage grix Vaccine (1 of 2) [facility] Start: 2000 Screening for malign ant neoplasm of colon [facility] Start: 1990 Lipid panel Lipid Screening [facility] Start: 1974 Urine microalbumin profile DTa P,Tdap,Td Vaccine (1 - Tdap) [facility] Start: 1973 Anxiety Screening Anxiety Screening [facility] Start: 1973 Depression Screening Depression Scre ening [facility] Start: 1973 Hepatitis C screening Hepatitis C Sc josefa [facility] Start: 1955 Abdominal aortic ane urysm screening Abdominal Aortic Aneurysm Screening [facility] W c [facility]tr[facility] IV CT KIDNEY WO/W IVCON Radiology Routine Renal mass, left Other specified disorders of kidney and ureter 11/21/2024 11:34 AM EDT [facility] Work Phone: Cystourethroscopy CYSTO.PANENDO Procedures Routine Difficulty urinating Ordered: 02/17/2024 [facility] Comment on above: Ordered: 02/17/2024 MARTINES - DISCONTINUE MARTINES - DISC ONTINUE Procedures Routine Difficulty urinating Ordered: 02/17/2024 [facility] Work Phone: Comment on above: Ordered: 02/17/2024 Hemoglobin [Presence ] in Urine [facility] Measurement of keton es in urine using dipstick [facility] Microscopic urinalysis [facility] Patient Education [facility] Work Phone: Patient referral [facility] Work Phone: pH of Urine [facility] Specific gravity of Urine [facility] Troponin T.cardiac [Mass/volume] in Serum or Plasma by High sensitivity method [facility] Troponin T.cardiac [Mass/volume] in Serum or Plasma by High sensitivity method [facility] Urine blood test [facility] Urine culture [facility] Urine culture [facility] Urine culture [facility] Urine dipstick for glucose [facility] Urine dipstick for leukocyte esterase [facility] Urine dipstick for nitrite [facility] Urine dipstick for protein [facility] Urine examination [facility] Urine microscopy: epithelial cells [facility] Urine Microscopy: wh ite cells [facility] Urobilinogen [Presen ce] in Urine [facility] Immunizations Immunization Date Immunization Notes Care Provider Frank kemp 04-23-2023 influenza, injectabl e, quadrivalent, preservative free Dr. Moshe Kitchen MD Work Phone: [facility] 04-23-2023 influenza, high dose seasonal, preservative-free; Translations: [Fluad Quadrivalent PF ] KELLIE BENITES FELT DYEING MACHINE TENDER-ENDOSCOPY TECH [facility] 04-23-2023 influenza virus vaccine, unspecified formulation Shar Downs MD Work Phone: [facility] 01-04-2023 tetanus toxoid, redu elvia diphtheria toxoid, and acellular pertussis vaccine, adsorbed LILIA ERNANDEZ MD [facility] 04-22-2022 influenza, high dose seasonal, preservative-free GAVINO AG FELT DYEING MACHINE TENDER-ENDOSCOPY TECH [facility] 03-05-2022 COVID-19, mRNA, LNP- S, PF, 100 mcg or 50 mcg dose; Translations: [Moderna COVID-19 Vaccine] YADIEL TORRES FELT DYEING MACHINE TENDER-ENDOSCOPY TECH [facility] 06-23-2021 COVID-19, mRNA, LNP- S, PF, 100 mcg/ 0.5 mL dose; Translations: [Moderna COVID-19 Vaccine] ARCHIE LINO FELT DYEING MACHINE TENDER-ENDOSCOPY TECH [facility] 05-01-2021 influenza, high dose seasonal, preservative-free; Translations: [Fluad Quadrivalent PF ] YADIEL TORRES FELT DYEING MACHINE TENDER-ENDOSCOPY TECH [facility] 10-26-2020 SARS-CoV-2 mRNA (tozinameran) vaccine YADIELNAEL FARIASERS FELT DYEING MACHINE TENDER-ENDOSCOPY TECH [facility] 10-05-2020 SARS-CoV-2 mRNA (tozinameran) vaccine YADIELNAEL TORRES FELT DYEING MACHINE TENDER-ENDOSCOPY TECH [facility] 04-25-2020 influenza, injectabl e, quadrivalent, preservative free; Translations: [Fluarix PF Quadrivalent ] YADIEL TORRES FELT DYEING MACHINE TENDER-ENDOSCOPY TECH [facility] 05-04-2019 influenza, injectabl e, quadrivalent, preservative free; Translations: [Fluarix PF Quadrivalent ] YADIEL TORRES FELT DYEING MACHINE TENDER-ENDOSCOPY TECH [facility] 06-13-2018 pneumococcal polysaccharide vaccine, 23 valent YADIEL TORRES FELT DYEING MACHINE TENDER-ENDOSCOPY TECH [facility] 04-07-2018 influenza virus vaccine, unspecified formulation YADIEL TORRES FELT DYEING MACHINE TENDER-ENDOSCOPY TECH [facility] 06-16-2017 pneumococcal conjuga te vaccine, 13 valent YADIEL TORRES FELT DYEING MACHINE TENDER-ENDOSCOPY TECH [facility] 06-16-2017 zoster vaccine, live YADIEL TORRES FELT DYEING MACHINE TENDER-ENDOSCOPY TECH [facility] 04-03-2017 influenza virus vaccine, unspecified formulation YADIEL TORRES FELT DYEING MACHINE TENDER-ENDOSCOPY TECH [facility] 07-14-2016 pneumococcal polysaccharide vaccine, 23 valent YADIEL TORRES FELT DYEING MACHINE TENDER-ENDOSCOPY TECH [facility] 07-10-2016 pneumococcal polysaccharide vaccine, 23 valent YADIEL TORRES FELT DYEING MACHINE TENDER-ENDOSCOPY TECH [facility] 2016 influenza virus vaccine, unspecified formulation YADIEL TORRES FELT DYEING MACHINE TENDER-ENDOSCOPY TECH [facility] 05-04-2015 influenza virus vaccine, unspecified formulation YADIEL TORRES FELT DYEING MACHINE TENDER-ENDOSCOPY TECH [facility] 04-08-2014 influenza virus vaccine, unspecified formulation YADIEL TORRES FELT DYEING MACHINE TENDER-ENDOSCOPY TECH [facility] 05-08-1999 pneumococcal polysaccharide vaccine, 23 valent YADIEL TORRES FELT DYEING MACHINE TENDER-ENDOSCOPY TECH [facility] Payers Date Payer Category Payer Self-pay [id number] 2023 Medicare (Managed Care) PRIMETIM E [id number] 2023 Medicare [id number] 2021 Private Health Insurance [id number] 2021 Unknown [id number] .[id number] 2021 Unknown [id number] 2013 Private Health Insurance [id number] 1955 Unknown [id number] 2.16.840.1.206427.3.579.2.6 27 1955 Unknown [id number] 2.16.840.1.508459.3.579.2.6 27 1955 Unknown [id number] 2.16.840.1.077074.3.579.2.6 27 1955 Unknown [id number] 2.16.840.1.103183.3.579.2.6 27 1955 Unknown [id number] 2.16.840.1.905971.3.579.2.6 27 1955 Unknown [id number] 2.16.840.1.131052.3.579.2.6 27 1955 Unknown [id number] 2.16.840.1.476967.3.579.2.6 27 1955 Unknown [id number] 2.16.840.1.615346.3.579.2.6 27 1955 Unknown [id number] 2.16.840.1.790702.3.579.2.6 27 1955 Unknown [id number] 2.16.840.1.049811.3.579.2.6 27 1955 Unknown [id number] 2.16.840.1.379483.3.579.2.6 27 1955 Unknown [id number] 2.16.840.1.198114.3.579.2.6 27 1955 Unknown [id number] 2.16.840.1.149681.3.579.2.6 27 1955 Unknown [id number] 2.16.840.1.525678.3.579.2.6 27 1955 Unknown [id number] 2.16.840.1.355713.3.579.2.6 27 1955 Unknown [id number] 2.16.840.1.480027.3.579.2.6 27 1955 Unknown [id number] 2.16.840.1.077671.3.579.2.6 27 1955 Unknown [id number] 2.16.840.1.599114.3.579.2.6 27 1955 Unknown [id number] 2.16.840.1.859598.3.579.2.6 27 1955 Unknown [id number] 2..840.1.777011.3.579.2.6 27 1955 Unknown [id number] 2..840.1.536370.3.579.2.6 27 1955 Unknown [id number] 2..840.1.574566.3.579.2.6 27 1955 Unknown [id number] 2..840.1.066017.3.579.2.6 27 Unknown ANTHEM [id number] Unknown [employer] HMO [id number] Unknown [facility] [id number] Unknown [id number] 2.16.840.1.110247.3.579.2.4 62 Unknown [id number] 2.16.840.1.090271.3.579.2.4 62 Unknown [id number] 2.16.840.1.614389.3.579.2.4 62 Unknown [id number] 2..840.1.445210.3.579.2.4 62 Unknown [id number] 2.16.840.1.115735.3.579.2.4 62 Unknown [id number] 2.16.840.1.283935.3.579.2.4 62 Unknown [id number] 2.16.840.1.408652.3.579.2.4 62 Unknown [id number] 2.16.840.1.872992.3.579.2.4 62 Unknown [id number] 2.16.840.1.299497.3.579.2.4 62 Unknown [id number] 2.16.840.1.781141.3.579.2.4 62 Unknown [id number] 2.16.840.1.654835.3.579.2.4 62 Unknown [id number] 2.16.840.1.648233.3.579.2.4 62 Unknown [id number] 2.16.840.1.417152.3.579.2.4 62 Unknown [id number] 2.16.840.1.645101.3.579.2.4 62 Unknown [id number] 2.16.840.1.592760.3.579.2.4 62 Unknown [id number] 2.16.840.1.746334.3.579.2.4 62 Unknown [id number] 2.16.840.1.626077.3.579.2.4 62 Unknown [id number] 2.16.840.1.364552.3.579.2.4 62 Unknown [id number] 2.16.840.1.250866.3.579.2.4 62 Unknown [id number] 2.16.840.1.097878.3.579.2.4 62 Unknown [id number] 2.16.840.1.929110.3.579.2.4 62 Unknown [id number] 2.16.840.1.013876.3.579.2.4 62 Unknown [id number] 2.16.840.1.198376.3.579.2.4 62 Unknown [id number] 2.16.840.1.917882.3.579.2.4 62 Unknown [id number] 2.16.840.1.280064.3.579.2.4 62 Unknown [id number] 2.16.840.1.193632.3.579.2.4 62 Unknown [id number] 2.16.840.1.481155.3.579.2.4 62 Unknown [id number] 2.16.840.1.977992.3.579.2.4 62 Unknown [id number] 2.16.840.1.164288.3.579.2.4 62 Unknown [id number] 2.16.840.1.674200.3.579.2.4 62 Unknown [id number] 2.16.840.1.072840.3.579.2.4 62 Unknown [id number] 2.16.840.1.437359.3.579.2.4 62 Unknown [id number] 2.16.840.1.453713.3.579.2.4 62 Unknown [id number] 2.16.840.1.704477.3.579.2.4 62 Social History Date Type Detail Facility Tobacco smoking stat us KYIS Unknown if ever smoked [facility] Start: 1955 Sex Assigned At Not on file C [facility] Start: 02-28-2021 End: 03-11-2025 Ex-smoker (finding) [facility] Start: 1955 Sex Assigned At Male A [facility] Start: 10-28-2023 End: 10-28-2023 Tobacco smoking status NHIS Tobacco smoking consumption unknown [facility] Start: 01-12-2024 End: 11-01-2024 Gender identity Not on file [facility] Start: 03-17-2019 Spouse/ Signif icant Other [facility] End: 07-12-2003 History of tobacco use Current smoker [facility] End: 07-12-2003 History of tobacco use Cigarette Smoker [facility] Start: 01-12-2024 End: 09-22-2024 Tobacco use and exposure Smokeless tobacco non-user [facility] Start: 01-12-2024 End: 11-01-2024 Alcohol intake Ex-drinker (finding) [facility] Start: 01-12-2024 End: 11-01-2024 History of Social function [facility] National Score (1-10 0), lower number is lower risk 56 [facility] Sexual Orientation [facility] allan [facility] Start: 06-05-2019 End: 10-18-2024 Sex Male (finding) [facility] Medical Equipment Procedure Code Equipment Code Equipment [...] Debridement, wound AXIOFILL,1000MG FDA S tart: 06-05-2024 [facility] [id number] FDA Start: 11-02-2023 See Instructions , BD UF 8mm 31 G (short)Use to inject insulin once daily, # 1 EA, 11 Refill(s), Pharmacy: [facility], 182.9, cm, 07/10/22 9:29:00 EST, Height, 166.8, kg, 07/10/22 9:29:00 EST, Dosing Weight Start: 12-15-2022 See Instructions , BD UF 8mm 31 G (short)Use to inject insulin once daily, # 1 EA, 11 Refill(s), Pharmacy: [facility], 182.9, cm, 07/10/22 9:29:00 EST, Height, 166.8, kg, 07/10/22 9:29:00 EST, Dosing Weight Start: 12-15-2022 See Instructions , BD UF 8mm 31 G (short)Use to inject insulin once daily, # 1 EA, 11 Refill(s), Pharmacy: [facility], 182.9, cm, 07/10/22 9:29:00 EST, Height, 166.8, kg, 07/10/22 9:29:00 EST, Dosing Weight Start: 12-15-2022 See Instructions , BD UF 8mm 31 G (short)Use to inject insulin once daily, # 1 EA, 11 Refill(s), Pharmacy: [facility], 182.9, cm, 07/10/22 9:29:00 EST, Height, 166.8, kg, 07/10/22 9:29:00 EST, Dosing Weight Start: 12-15-2022 See Instructions , BD UF 8mm 31 G (short)Use to inject insulin once daily, # 1 EA, 11 Refill(s), Pharmacy: [facility], 182.9, cm, 07/10/22 9:29:00 EST, Height, 166.8, kg, 07/10/22 9:29:00 EST, Dosing Weight Start: 12-15-2022 See Instructions , BD UF 8mm 31 G (short)Use to inject insulin once daily, # 1 EA, 11 Refill(s), Pharmacy: [facility], 182.9, cm, 07/10/22 9:29:00 EST, Height, 166.8, kg, 07/10/22 9:29:00 EST, Dosing Weight Start: 12-15-2022 See Instructions , BD UF 8mm 31 G (short)Use to inject insulin once daily, # 1 EA, 11 Refill(s), Pharmacy: [facility], 182.9, cm, 07/10/22 9:29:00 EST, Height, 166.8, kg, 07/10/22 9:29:00 EST, Dosing Weight Start: 12-15-2022 See Instructions , BD UF 8mm 31 G (short)Use to inject insulin once daily, # 1 EA, 11 Refill(s), Pharmacy: [facility], 182.9, cm, 07/10/22 9:29:00 EST, Height, 166.8, kg, 07/10/22 9:29:00 EST, Dosing Weight Start: 12-15-2022 See Instructions , BD UF 8mm 31 G (short)Use to inject insulin once daily, # 1 EA, 11 Refill(s), Pharmacy: [facility], 182.9, cm, 07/10/22 9:29:00 EST, Height, 166.8, kg, 07/10/22 9:29:00 EST, Dosing Weight Start: 12-15-2022 Goals Date Patient Goal Desired Activity /State Functional Status Date Assessment Result Facility 01-06-2025 Functional status Ambulates [facility] Work Phone: 10-18-2024 Functional status With Assist of 2 [facility] Work Phone: 10-17-2024 Functional status Ambulates;Bathroom Priv ilege [facility] Work Phone: 10-12-2024 Functional status Ambulates [facility] Work Phone: 07-29-2024 Functional Status Room check per formed, New Accounts Representative at bedside [facility] 07-29-2024 Functional Status [facility] 07-28-2024 Functional Status [facility] 07-28-2024 Functional Status [facility] 07-28-2024 Functional Status 100 [facility] 07-28-2024 Functional Status Valid [place] Sli p yes, form complete [facility] 07-28-2024 Functional Status Pre-restraint Alternatives Attempted Enhanced observation, Reality orientation, Intervention attempted, not successful [facility] 04-08-2024 Functional Status Nurse Denia capone q2hrs Performed 7am-11am [facility] 04-08-2024 Functional Status None [facility] 04-08-2024 Functional Status Room check performed [facility] 04-08-2024 Functional Status [facility] 04-08-2024 Functional Status [facility] 04-07-2024 [facility] 04-[facility] Functional Status [facility] 04-06-2024 Functional Status 1st floor bedr oom, 1st floor bathroom, 1st floor laundry [facility] 04-06-2024 Functional Status Sensory Deficits None A [facility] 04-06-2024 Functional Status [facility] 04-04-2024 Functional Status Identified as high risk, Fall ID band on, Room located near nursing station, Non-Slip footwear, New Accounts Representative at bedside [facility] 01-21-2024 Functional Status Standard Safet y ID band on, Allergy Band on, Call device within reach, Bed in low position, Wheels locked, Upper/Half-Length side-rails up, Bedside Cart Locked, Safety level maintained [facility] 11-14-2023 Functional Status Activity Ngozisonia torres Independent [facility] 11-13-2023 Functional Status Standard Safet y ID band on, Allergy Band on, Call device within reach, Bed in low position, Wheels locked, Upper/Half-Length side-rails up, personal items within reach, Bedside Cart Locked [facility] 11-03-2023 Functional status Ambulates [facility] Work Phone: 10-27-2023 Functional Status Breakfast Percent [address] [facility] 10-27-2023 Functional Status Identified as high risk, Fall ID band on, Room located near nursing station, Bed alert on, Door open, Non-Slip footwear [facility] 10-27-2023 Functional Status Denise [facility] 10-27-2023 Functional Status Denise [facility] 10-26-2023 Functional Status Denise [facility] 10-26-2023 Functional Status Mod I [facility] 10-26-2023 Functional Status Lunch Percent 100 [facility] 10-26-2023 Functional Status Independent Denise [facility] 10-26-2023 Functional Status Denise [facility] 10-26-2023 Functional Status Denise [facility] 10-26-2023 Functional Status Assistive Device Walker [facility] 10-25-2023 Functional [facility] Functional Status [facility] 10-24-2023 Functional Status [facility] 10-24-2023 Functional Status [facility] 10-24-2023 Functional Status [facility] 10-24-2023 Functional Status [facility] 10-24-2023 Functional Status [facility] 10-23-2023 Functional Status [facility] 10-23-2023 Functional Status [facility] [place] 10-22-2023 Functional Status [facility]23 Functional Status [facility] 10-21-2023 Functional Status [facility] 10-21-2023 Functional Status Ambulation in [place], Up with assistance [facility] 10-21-2023 Functional Status Antiembolism S tocking On/Re-applied bilateral knee high [facility] 10-21-2023 Functional Status Supervised [facility]-21-2023 Functional Status [facility] 10-20-2023 Functional Status [facility]-20-2023 Functional Status [facility] 10-19-2023 Functional Status Deniser[facility] [place] 10-19-2023 Functional Status [facility] [place] 10-18-2023 Functional Status [facility] 10-17-2023 Functional Status [facility] 10-16-2023 Functional Status [facility] 10-15-2023 Functional Status [facility] 10-15-2023 Functional Status [facility] 10-14-2023 Functional Status Front wheeled [facility] 10-14-2023 Functional Status 1st floor bedr oom, 1st floor bathroom, 1st floor laundry [facility] 10-13-2023 Functional Status Min A Denise [facility] 10-12-2023 Functional Status Skin Care Prev entative Intervention(s) heel protectors on [facility] 10-12-2023 Functional Status Densie [facility] 10-12-2023 Functional Status Denise [facility] 10-12-2023 Functional Status Denise [facility] 10-12-2023 Functional Status Denise [facility] 10-12-2023 Functional Status bilateral knee high removed/off [facility] 10-12-2023 Functional Status Activity Ngozi tance Maximum assistance [facility] 10-11-2023 Functional Status Denise [facility] 10-11-2023 Functional Status One assist Denise [facility] 10-11-2023 Functional Status Denise [facility] 10-11-2023 Functional Status Linen Change Done [facility] 10-11-2023 Functional Status Oral Care Moderate assi stance [facility] 10-10-2023 Functional Status Denise [facility] 10-10-2023 Functional Status Denise [facility] 10-10-2023 Functional Status Denise [facility] 10-09-2023 Functional Status Denise [facility] 10-09-2023 Functional Status Denise [facility] 10-09-2023 Functional Status Denise [facility] 10-08-2023 Functional Status Dinner Percent 25 [facility] 10-08-2023 Functional Status Skin Care Prod uct Applied Skin moisturizer [facility] 10-08-2023 Functional Status Maintained Denise [facility] 10-07-2023 Functional Status Denise [facility] 10-07-2023 Functional Status Sensory Deficits None [facility] 10-07-2023 Functional Status Identified as high risk, Fall ID band on, Room located near nursing station, Door open, Non-Slip footwear [facility] 10-07-2023 Functional Status Denise [facility] 10-06-2023 Functional Status Denise [facility] 10-06-2023 [facility]-06[facility]23 Functional Status Denise Vance [facility] 10-06-2023 Functional Status Denise Vance [facility] 10-05-2023 Functional Status Moderate assistance [facility] 10-05-2023 Functional Status Patient refused 10 [facility] 10-05-2023 Functional Status Denise Vance [facility] 10-05-2023 Functional Status Mod A Denise Vance [facility] 10-04-2023 Functional Status Denise Vance [facility] 10-04-2023 Functional Status Denise Vance [facility] 10-04-2023 Functional Status Denise Vance [facility] 10-04-2023 Functional Status Mod Kenia Hoffman [facility] 10-04-2023 Functional Status 1st floor bedr oom, 1st floor bathroom, 1st floor laundry [facility] 10-04-2023 Functional Status Denise Vance [facility] 10-03-2023 Functional Status Sensory Deficits None A [facility] 03-16-2023 Functional Status Supervision [facility] 03-16-2023 Functional Status Identified as high risk, Fall ID band on, Room located near nursing station, Door open, Non-Slip footwear, toileting offered, toileting refused, Room check performed, High risk door magnet present [facility] 03-16-2023 Functional Status Denise [facility] 01-26-2023 Functional Status Ambulating in room [facility] 01-26-[address] [facility] 01-26-2023 Functional Status Room check performed [facility] 01-04-2023 Functional Status Independent Denise [facility] 01-04-2023 Functional Status Standard Safet y ID band on, Allergy Band on, Call device within reach, Bed in low position, Wheels locked [facility] 10-24-2021 Functional Status [facility] 10-24-2021 Functional Status [facility] 10-24-2021 Functional Status [facility] Mental Status Date Assessment Result Facility 03-11-2025 Cognitive function Voice/Name [facility] Work Phone: 01-06-2025 Cognitive function Voice/Name [facility] Work Phone: 10-18-2024 Cognitive function Voice/Name [facility] Work Phone: 10-13-2024 Cognitive function Level Of Cons ciousness Appropriate;Follows Commands [facility] Work Phone: 10-12-2024 Cognitive function Voice/Name [facility] Work Phone: 10-12-2024 Cognitive function Recent Impaired [facility] Work Phone: 07-28-2024 Mental Status Orientation Oriented x 4 [facility] 07-28-2024 Mental Status [facility] 06-05-2024 Cognitive function Level Of Consciousness Sedated [facility] Work Phone: 06-05-2024 Cognitive function Patient Orien tation Person;Place;Time [facility] Work Phone: 04-08-2024 Mental Status Oriented x 4 [facility] 04-07-2024 [facility] 04-04-[facility]24 Mental Status Orientation Oriented x 4 [facility] 01-21-2024 Mental Status Orientation Oriented x 4 [facility] 11-14-2023 Mental Status Orientation Oriented x 4 [facility] 11-13-2023 Mental Status [facility] 11-03-2023 Cognitive function Voice/Name [facility] Work Phone: 10-28-2023 Cognitive function Voice/Name [facility] Work Phone: 10-27-2023 Mental Status Oriented x 4 [facility] 10-26-2023 Mental Status [facility] 10-26-2023 Mental Status [facility] 10-26-2023 Mental Status [facility] 10-13-2023 Mental Status Orientation Oriented x 4 [facility] 10-13-2023 [facility] Status [facility] 10-13-2023 [facility] Status [facility] 10-12-2023 [facility] Status [facility] 10-12-2023 [facility] Status [facility] 10-07-2023 Mental Status Oriented x 4 [facility] 10-06-2023 Mental Status [facility] 10-06-2023 Mental Status [facility] 10-06-2023 Mental Status [facility] 03-16-2023 Mental Status [facility]ed x [facility] 03-16-2023 [facility] Status [facility] 01-26-2023 Mental Status [facility]ed x [facility] 01-26-2023 [facility] Status [facility] 01-26-2023 [facility] Status [facility] 01-04-2023 Mental Status Orientation Oriented x 4 [facility] 10-24-2021 Mental Status [facility] 10-24-2021 [facility] 10-24-2021 to 04-04-2025 Note Date & Type Note Facility 04-04-2025 Progress note Note Date/Time April 04, 2025 12:29pm [facility] [place] [address] Progress Note - Wound Care 04/04/25 1227 MR#: [id number] Acct: [id number] Name: JADON ALVAREZ Rep #:[id number] : 1955 69 From: Aaron AVILA PCP: Kathleen Herzog MD Status:REG RCR Location: History of Present Illness Date of Service: 04/04/25 Chief Complaint: Right buttock ulceration History of Wound: Patient is 69-year-old male chronic ulceration to the lateral right leg stable with no sign of infection. Progress of Wound: Stable slow healing full-thickness wound lateral right leg Subjective Subjective Patient is a 69-year-old diabetic male presented wound care center today follow-up evaluation of full-thickness wound to the lateral right leg. Patient is not getting compression at his facility and states that they never did get wrapped. He has not missed the last 1-2 appointments due to transportation issues. He isunhappy with his care at the facility. Denies trauma. Denies constitutional symptoms. No other pedal complaints at this time. Objective Data Objective Data Vital Signs: Vital Signs Temp Pulse Resp BP O2 Del Method 97.1 F L 53 L 14 153/61 H Room Air 04/04/25 10:59 04/04/25 10:59 04/04/25 10:59 04/04/25 10:59 03/14/25 08:54 Oxygen Delivery Method Room Air Physical Exam Narrative Vascular: DP and PT [...] the lateral aspect of the right legmeasuring 4.2 x 1.3 x 0.1 cm wound base is granular. No malodor or probe to bone. No sign of infection. Excisional debridement of the right leg lateral aspect full-thickness ulcerationdown to and including subcutaneous tissue with a number 5 mm dermal curette without incident. Predebridement measurement was sanguinous crust. Postdebridement measurement was 4.2 x 1.3 x 0.1 cm. Musculoskeletal: No pain to palpation to full-thickness ulceration. No pain with calf compression. Debridement Note Debridement Note Debridement Free Text: Excisional debridement of the right leg lateral aspect full-thickness ulceration down to and including subcutaneous tissue with a number 5 mm dermal curette without incident. Predebridement measurement was sanguinous crust. Postdebridement measurement was 4.2 x 1.3 x 0.1 cm. Post-Debridement Measurements and Additional Note: Post-Debridement Measurements/Treatment WC - Nurse 1 - General Ulcer Assessment Start: 03/14/25 08:54 Freq: Status: Active Protocol: GALE Activity Type Activity Date Activity User E-sign Co-sign Detail Recorded Client Recorded Date Recorded By Document 03/14/25 08:54 KW [id number] 03/14/25 09:05 KW Document 04/04/25 10:59 ML [id number] 04/04/25 11:00 ML 03/14/25 04/04/25 08:54 10:59 WC - Today's Visit Information Type of service Follow-up Visit Follow-up Visit (Physician/ENDOSCOPY TECH (Physician/ENDOSCOPY TECH ) ) Arrival Mode Ambulatory Ambulatory Patient Identification Verified (Name & Yes Yes ) Patient Requires Transmission-Based No Precautions Vital Signs Temperature (97.8 F-99.1 F) 96.8 F L 97.1 F L Temperature Source Temporal Temporal Pulse Rate (60-100) 61 53 L Pulse Location Monitor Monitor Respiratory Rate (12-18) 18 14 Respiratory rate source Observation Monitor Oxygen Delivery Method Room Air Blood Pressure (90/60-120/80) 150/80 H 153/61 H Blood Pressure Mean (mm Hg) 103 91 Source Monitor Monitor Position Semi-Fowlers Sitting Blood Pressure Location Left Arm Left Arm History Since Last Visit- (Skip [...] you been in the hospital since your Yes No last visit? Has dressing in place as prescribed Yes No Has compression in place as prescribed Yes No Has offloadiing in place as prescribed N/A No Experienced any changes in pain level or No No management Left Footwear Regular Shoe Right Footwear Regular Shoe Pain Scale: 0-10 Numeric Is Patient Pain Free? Yes Yes CODY - Nurse 1 - General Ulcer Measurement Start: 03/14/25 08:54 Freq: Status: Active Protocol: Activity Type Activity Date Activity User E-sign Co-sign Detail Recorded Client Recorded Date Recorded By Document 03/14/25 08:54 KW [id number] 03/14/25 09:05 KW Document 04/04/25 10:59 ML [id number] 04/04/25 11:00 ML 03/14/25 04/04/25 08:54 10:59 Wound Center Nurse 1 #5 RT LAT LE POST-OP -Current Size (cm) - Length 6.7 5 -Current Size (cm) - Width 1.8 1.5 -Current Size (cm) - Depth 0.1 0.1 -Total Square Cm 12.06 7.5 -Date of Last Picture (Recall this 03/14/25 field) -Epithelialization Medium 34-66% -Exudate Amt Medium Small -Exudate Type Serosanguineous -Wound Margin Distinct, Outline Attached -Granulation Amt Large (67-100%) Small (1-33%) -Granulation Quality Red -Slough/Fibrin Yes -Necrosis Amt Small (1-33%) None Present (0 %) -Necrotic Tissue Type Adherent Slough Adherent Slough -Texture (Mariza-wound Skin Appearance) Assessed, Assessed Scarring -Moisture (Mariza-wound Skin Appearance) Assessed Assessed -Color (Mariza-wound Skin Appearance) Assessed Assessed -Temperature (Mariza-wound Skin No Abnormality No Abnormality Appearance) (Pt Warm) (Pt Warm) -Tenderness on Palpation (Mariza-wound No No Skin Appearance) -Ulcer Cleansing Soap and Water Rinsed/ Irrigated with Saline -Foul Odor after Cleansing No No -Anesthetic Used 5% Lidocaine 5% Lidocaine Gel Gel WC - Nurse 2 - General Ulcer CM Notes Start: 03/14/25 08:54 Freq: Status: Active Protocol: Activity Type Activity Date Activity User E-sign Co-sign Detail Recorded Client Recorded Date Recorded By Document 03/14/25 09:19 JF [id number] 03/14/25 09:23 JF Document 04/04/25 11:14 JF [id number] 04/04/25 11:16 JF 03/14/25 04/04/25 09:19 11:14 Wound Center Nurse 2 #5 RT LAT LE POST-OP -Time 09:22 11:14 -Correct Patient Yes Yes -Correct Side, Site, Position Yes Yes -Correct Procedure Yes Yes -Procedure Performed Yes Yes -Type of Procedure Debridement Debridement -Clinical Debridement Subcutaneous Subcutaneous -Tissue Removed Subcutaneous Subcutaneous -Post Debridement (cm) - Length 7 4.2 -Post Debridement (cm) - Width 1.6 1.3 -Post Debridement (cm) - Depth 0.1 0.1 -Total Square (Post) (cm) 11.2 5.46 -Area of Debridement (cm) - Length 7 4.2 -Area of Debridement (cm) - Width 1.6 1.3 -Total Square (Area) (cm) 11.2 5.46 -Tunneling No No -Undermining/Tunneling No No -Circular Undermining No No -Wound/Ulcer Outcome Not Healed Not Healed -Ulcer Cleansing Rinsed/ Rinsed/ Irrigated with Irrigated with Saline Saline -Foul Odor after Cleansing No No -Bioengineered Tissue No No -Bleeding Controlled with Pressure Pressure -Treatment Response Procedure Procedure Tolerated Well Tolerated Well -Offloading No No -Debridement - Subq, 1st 20sq cm Yes Yes Pain Scale: 0-10 Numeric Is Patient Pain Free? Yes Yes - Nurse 3 - General Ulcer D/C NN Start: 03/14/25 08:54 Freq: Status: Active Protocol: Activity Type Activity Date Activity User E-sign Co-sign Detail Recorded Client Recorded Date Recorded By Document 03/14/25 09:31 [id number] 03/14/25 09:32 KW 03/14/25 09:31 Wound Care Center Nurse 3 #5 RT LAT LE POST-OP -Primary Dressing Applied NonAdherent Contact Layer, Promogran Pankaj Matter -Primary Dressing Covered/Secured with Dry Gauze & Roll Gauze, Secured with Tape -Promogran Pankaj Matter 1 BLE -Compression Wrap Brittany Wrap -Other 6 in Pain Scale: 0-10 Numeric Is Patient Pain Free? Yes - Visit Discharge Discharge Condition Stable Ambulatory Status Ambulatory Medication Reconcilliation completed & No provided to [...] dermal curette without incident. Predebridement measurement was sanguinous crust. Postdebridement measurement was 4.2 x 1.3 x 0.1 cm. The area was wiped clean andpatted dry. During the nursing visit the patient refused to be dressed and wrapped and walked out of the office against the nursing and doctors orders. Attempt to discussed with the patient in the waiting room was unsuccessful. Orders were sent back to the facility to dressed with moist Pankaj dry sterile dressing and compression wrap/Brittany bandages to the bilateral lower extremity. Patient will continue every other day dressing change. He is to elevate whenever at rest. He is to continue strict blood sugar control. Follow-up at the wound care center with Dr. Shannon in 2 week. 04/04/25 1229 <Electronically signed by Aaron Shannon DPM> Cosigner Signature (if applicable): CC: ~ Signed [facility] Work Phone: 1(291) 942-679009-24-2025 Progress note [facility] [address] [place] [address] Progress Note - Wound Care 04/04/25 1227 MR#: [id number] Acct: [id number] Name: JADON ALVAREZ Rep #:[id number] : 1955 69 From: Aaron Iniguez PM PCP: Kathleen Herzog MD Status:REG RCR Location: History of Present Illness Date of Service: 04/04/25 Chief Complaint: Right buttock ulceration History of Wound: Patient is 69-year-old male chronic ulceration to the lateral right leg stable with no sign of infection. Progress of Wound: Stable slow healing full-thickness wound lateral right leg Subjective Subjective Patient is a 69-year-old diabetic male presented wound care center today follow- up evaluation of full-thickness wound to the lateral right leg. Patient is not getting compression at his facility and states that they never did get wrapped. He has not missed the last 1-2 appointments due to transportation issues. He isunhappy with his care at the facility. Denies trauma. Denies constitutional symptoms. No other pedal complaints at this time. Objective Data Objective Data Vital Signs: Vital Signs Temp Pulse Resp BP O2 Del Method 97.1 F L 53 L 14 153/61 H Room Air 04/04/25 10:59 04/04/25 10:59 04/04/25 10:59 04/04/25 10:59 03/14/25 08:54 Oxygen Delivery Method Room Air Physical Exam Narrative Vascular: DP and PT [...] the lateral aspect of the right legmeasuring 4.2 x 1.3x 0.1 cm wound base is granular. No malodor or probe to bone. No sign of infection. Excisional debridement of the right leg lateral aspect full-thickness ulcerationdown to and including subcutaneous tissue with a number 5 mm dermal curette without incident. Predebridement measurement was sanguinous crust. Postdebridement measurement was 4.2 x 1.3 x 0.1 cm. Musculoskeletal: No pain to palpation to full-thickness ulceration. No pain with calf compression. Debridement Note Debridement Note Debridement Free Text: Excisional debridement of the right leg lateral aspect full-thickness ulceration down to and including subcutaneous tissue with a number 5 mm dermal curette without incident. Predebridement measurement was sanguinous crust. Postdebridement measurement was 4.2 x 1.3 x 0.1 cm. Post-Debridement Measurements and Additional Note: Post-Debridement Measurements/Treatment - Nurse 1 - General Ulcer Assessment Start: 03/14/25 08:54 Freq: Status: Active Protocol: CODY.[email or web address] Activity Type Activity Date Activity User E-sign Co-sign Detail Recorded Client Recorded Date Recorded By Document 03/14/25 08:54 KW [id number] 03/14/25 09:05 KW Document 04/04/25 10:59 ML [id number] 04/04/25 11:00 ML 03/14/25 04/04/25 08:54 10:59 - Today's Visit Information Type of service Follow-up Visit Follow-up Visit (Physician/ENDOSCOPY TECH (Physician/ENDOSCOPY TECH ) ) Arrival Mode Ambulatory Ambulatory Patient Identification Verified (Name & Yes Yes ) Patient Requires Transmission-Based No Precautions Vital Signs Temperature (97.8 F-99.1 F) 96.8 F L 97.1 F L Temperature Source Temporal Temporal Pulse Rate (60-100) 61 53 L Pulse Location Monitor Monitor Respiratory Rate (12-18) 18 14 Respiratory rate source Observation Monitor Oxygen Delivery Method Room Air Blood Pressure (90/60-120/80) 150/80 H 153/61 H Blood Pressure Mean (mm Hg) 103 91 Source Monitor Monitor Position Semi-Fowlers Sitting Blood Pressure Location Left Arm Left Arm History Since Last Visit- (Skip [...] you been in the hospital since your Yes No last visit? Has dressing in place as prescribed Yes No Has compression in place as prescribed Yes No Has offloadiing in place as prescribed N/A No Experienced any changes in pain level or No No management Left Footwear Regular Shoe Right Footwear Regular Shoe Pain Scale: 0-10 Numeric Is Patient Pain Free? Yes Yes WC - Nurse 1 - General Ulcer Measurement Start: 03/14/25 08:54 Freq: Status: Active Protocol: Activity Type Activity Date Activity User E-sign Co-sign Detail Recorded Client Recorded Date Recorded By Document 03/14/25 08:54 KW [id number] 03/14/25 09:05 KW Document 04/04/25 10:59 ML [id number] 04/04/25 11:00 ML 03/14/25 04/04/25 08:54 10:59 Wound Center Nurse 1 #5 RT LAT LE POST-OP -Current Size (cm) - Length 6.7 5 -Current Size (cm) - Width 1.8 1.5 -Current Size (cm) - Depth 0.1 0.1 -Total Square Cm 12.06 7.5 -Date of Last Picture (Recall this 03/14/25 field) -Epithelialization Medium 34-66% -Exudate Amt Medium Small -Exudate Type Serosanguineous -Wound Margin Distinct, Outline Attached -Granulation Amt Large (67-100%) Small (1-33%) -Granulation Quality Red -Slough/Fibrin Yes -Necrosis Amt Small (1-33%) None Present (0 %) -Necrotic Tissue Type Adherent Slough Adherent Slough -Texture (Mariza-wound Skin Appearance) Assessed, Assessed Scarring -Moisture (Mariza-wound Skin Appearance) Assessed Assessed -Color (Mariza-wound Skin Appearance) Assessed Assessed -Temperature (Mariza-wound Skin No Abnormality No Abnormality Appearance) (Pt Warm) (Pt Warm) -Tenderness on Palpation (Mariza-wound No No Skin Appearance) -Ulcer Cleansing Soap and Water Rinsed/ Irrigated with Saline -Foul Odor after Cleansing No No -Anesthetic Used 5% Lidocaine 5% Lidocaine Gel Gel - Nurse 2 - General Ulcer CM Notes Start: 03/14/25 08:54 Freq: Status: Active Protocol: Activity Type Activity Date Activity User E-sign Co-sign Detail Recorded Client Recorded Date Recorded By Document 03/14/25 09:19 [id number] 03/14/25 09:23 Document 04/04/25 11:14 [id number] 04/04/25 11:16 03/14/25 04/04/25 09:19 11:14 Wound Center Nurse 2 #5 RT LAT LE POST-OP -Time 09:22 11:14 -Correct Patient Yes Yes -Correct Side, Site, Position Yes Yes -Correct Procedure Yes Yes -Procedure Performed Yes Yes -Type of Procedure Debridement Debridement -Clinical Debridement Subcutaneous Subcutaneous -Tissue Removed Subcutaneous Subcutaneous -Post Debridement (cm) - Length 7 4.2 -Post Debridement (cm) - Width 1.6 1.3 -Post Debridement (cm) - Depth 0.1 0.1 -Total Square (Post) (cm) 11.2 5.46 -Area of Debridement (cm) - Length 7 4.2 -Area of Debridement (cm) - Width 1.6 1.3 -Total Square (Area) (cm) 11.2 5.46 -Tunneling No No -Undermining/Tunneling No No -Circular Undermining No No -Wound/Ulcer Outcome Not Healed Not Healed -Ulcer Cleansing Rinsed/ Rinsed/ Irrigated with Irrigated with Saline Saline -Foul Odor after Cleansing No No -Bioengineered Tissue No No -Bleeding Controlled with Pressure Pressure -Treatment Response Procedure Procedure Tolerated Well Tolerated Well -Offloading No No -Debridement - Subq, 1st 20sq cm Yes Yes Pain Scale: 0-10 Numeric Is Patient Pain Free? Yes Yes - Nurse 3 - General Ulcer D/C NN Start: 03/14/25 08:54 Freq: Status: Active Protocol: Activity Type Activity Date Activity User E-sign Co-sign Detail Recorded Client Recorded Date Recorded By Document 03/14/25 09:31 HANNAH [id number] 03/14/25 09:32 HANNAH 03/14/25 09:31 Wound Care Center Nurse 3 #5 RT LAT LE POST-OP -Primary Dressing Applied NonAdherent Contact Layer, Promogran Pankaj Matter -Primary Dressing Covered/Secured with Dry Gauze & Roll Gauze, Secured with Tape -Promogran Pankaj Matter 1 BLE -Compression Wrap Brittany Wrap -Other 6 in Pain Scale: 0-10 Numeric Is Patient Pain Free? Yes WC - Visit Discharge Discharge Condition Stable Ambulatory Status Ambulatory Medication Reconcilliation completed & No provided to [...] dermal curette without incident. Predebridement measurement was sanguinous crust. Postdebridement measurement was 4.2 x 1.3 x 0.1 cm. The area was wiped clean andpatted dry. During the nursing visit the patient refused to be dressed and wrapped and walked out of the office against the nursing and doctors orders. Attempt to discussed with the patient in thewaiting room was unsuccessful. Orders were sent back to the facility to dressed with moist Pankaj dry sterile dressing and compression wrap/Brittany bandages to the bilateral lower extremity. Patient will continue every other day dressing change. He is to elevate whenever at rest. He is to continue strict blood sugar control. Follow-up at the wound care center with Dr. Shannon in 2 week. 04/04/25 1229 Cosigner Signature (if applicable): CC: ~ Signed [facility]09-03-2025 Progress note Author Aaron Shannon [facility] Note Date/Time March 14, 2025 12:18pm [facility] [address] [place] [address] Progress Note - Wound Care 03/14/25 1216 MR#: [id number] Acct: [id number] Name: JADON ALVAREZ Rep #:[id number] 1 : 1955 69 From: Aaron AVILA PCP: Kathleen Herzog MD Status:REG RCR Location: History of Present Illness Date of Service: 03/14/25 Chief Complaint: Right buttock ulceration History of Wound: Patient is 69-year-old male chronic ulceration to the lateral right leg stable with no sign of infection. Progress of Wound: Stable slow healing full-thickness wound lateral right leg Subjective Subjective Patient is a 69-year-old diabetic male presenting to wound care center today forfollow-up evaluation of full-thickness wound to the lateral right leg. Patient has been getting dressing changes by long-term facility. He is wearing compression wraps during today's visit. Unfortunately the patient is suffering from a UTI and taking Cipro 250 mg for the next 10 days. Overall his leg is improving. He denies trauma. He denies constitutional symptoms. No other pedal complaints at this time. Objective Data Objective Data Vital Signs: Vital Signs Temp Pulse Resp BP O2 Del Method 96.8 F L 61 18 150/80 H Room Air 03/14/25 08:54 03/14/25 08:54 03/14/25 08:54 03/14/25 08:54 03/14/25 08:54 Oxygen Delivery Method Room Air Physical Exam Narrative Vascular: DP and PT [...] the lateral aspect of the right legmeasuring 7.8 x 1.6 x 0.1 cm. Wound base is granular. No malodor or probe to bone. No sign of infection. Excisional debridement of the right leg lateral aspect full-thickness ulcerationdown to and including subcutaneous tissue with a number 5 mm dermal curette without incident. Predebridement measurement was 7.5 x 1.3 x 0.1 cm. Postdebridement measurement was 7.8 x 1.6 x 0.1 cm. Musculoskeletal: No pain to palpation to full-thickness ulceration. No pain with calf compression. Debridement Note Debridement Note Debridement Free Text: Excisional debridement of the right leg lateral aspect full-thickness ulceration down to and including subcutaneous tissue with a number 5 mm dermal curette without incident. Predebridement measurement was 7.5x 1.3 x 0.1 cm. Postdebridement measurement was 7.8 x 1.6 x 0.1 cm. Post-Debridement Measurements and Additional Note: Post-Debridement Measurements/Treatment WC - Nurse 1 - General Ulcer Assessment Start: 03/14/25 08:54 Freq: Status: Active Protocol: GALE Activity Type Activity Date Activity User E-sign Co-sign Detail Recorded Client Recorded Date Recorded By Document 03/14/25 08:54 HANNAH [id number] 03/14/25 09:05 03/14/25 08:54 WC - Today's Visit Information Type of service Follow-up Visit (Physician/ENDOSCOPY TECH ) Arrival Mode Ambulatory Patient Identification Verified (Name & Yes ) Vital Signs Temperature (97.8 F-99.1 F) 96.8 F L Temperature Source Temporal Pulse Rate (60-100) 61 Pulse Location Monitor Respiratory Rate (12-18) 18 Respiratory rate source Observation Oxygen Delivery Method Room Air Blood Pressure (90/60-120/80) 150/80 H Blood Pressure Mean (mm Hg) 103 Source Monitor Position Semi-Fowlers Blood Pressure Location Left Arm History Since Last Visit- (Skip if this is Patient's initial visit) Have you changed medications since your No last visit? Any new allergies or adverse reactions No Had a fall/change in ADL's that may No increase risk of falls Signs or symptoms of abuse and/or No neglect since last visit Have you been in the hospital since your Yes last visit? Has dressing in place as prescribed Yes Has compression in place as prescribed Yes Has offloadiing in place as prescribed N/A Experienced any changes in pain level or No management Left Footwear Regular Shoe Right Footwear Regular Shoe Pain Scale: 0-10 Numeric Is Patient Pain Free? Yes - Nurse 1 - General Ulcer Measurement Start: 03/14/25 08:54 Freq: Status: Active Protocol: Activity Type Activity Date Activity User E-sign Co-sign Detail Recorded Client Recorded Date Recorded By Document 03/14/25 08:54 KW [id number] 03/14/25 09:05 KW 03/14/25 08:54 Wound Center Nurse 1 #5 RT LAT LE POST-OP -Current Size (cm) - Length 6.7 -Current Size (cm) - Width 1.8 -Current Size (cm) - Depth 0.1 -Total Square Cm 12.06 -Date of Last Picture (Recall this 03/14/25 field) -Epithelialization Medium 34-66% -Exudate Amt Medium -Exudate Type Serosanguineous -Wound Margin Distinct, Outline Attached -Granulation Amt Large (67-100%) -Granulation Quality Red -Necrosis Amt Small (1-33%) -Necrotic Tissue Type Adherent Slough -Texture (Mariza-wound Skin Appearance) Assessed, Scarring -Moisture (Mariza-wound Skin Appearance) Assessed -Color (Mariza-wound Skin Appearance) Assessed -Temperature (Mariza-wound Skin No Abnormality Appearance) (Pt Warm) -Tenderness on Palpation (Mariza-wound No Skin Appearance) -Ulcer Cleansing Soap and Water -Foul Odor after Cleansing No -Anesthetic Used 5% Lidocaine Gel WC - Nurse 2 - General Ulcer CM Notes Start: 03/14/25 08:54 Freq: Status: Active Protocol: Activity Type Activity Date Activity User E-sign Co-sign Detail Recorded Client Recorded Date Recorded By Document 03/14/25 09:19 JF [id number] 03/14/25 09:23 JF 03/14/25 09:19 Wound Center Nurse 2 -Time 09:22 -Correct Patient Yes -Correct Side, Site, Position Yes -Correct Procedure Yes -Procedure Performed Yes -Type of Procedure Debridement -Clinical Debridement Subcutaneous -Tissue Removed Subcutaneous -Post Debridement (cm) - Length 7 -Post Debridement (cm) - Width 1.6 -Post Debridement (cm) - Depth 0.1 -Total Square (Post) (cm) 11.2 -Area of Debridement (cm) - Length 7 -Area of Debridement (cm) - Width 1.6 -Total Square (Area) (cm) 11.2 -Tunneling No -Undermining/Tunneling No -Circular Undermining No -Wound/Ulcer Outcome Not Healed -Ulcer Cleansing Rinsed/ Irrigated with Saline -Foul Odor after Cleansing No -Bioengineered Tissue No -Bleeding Controlled with Pressure -Treatment Response Procedure Tolerated Well -Offloading No -Debridement - Subq, 1st 20sq cm Yes Pain Scale: 0-10 Numeric Is Patient Pain Free? Yes - Nurse 3 - General Ulcer D/C NN Start: 03/14/25 08:54 Freq: Status: Active Protocol: Activity Type Activity Date Activity User E-sign Co-sign Detail Recorded Client Recorded Date Recorded By Document 03/14/25 09:31 KW [id number] 03/14/25 09:32 KW 03/14/25 09:31 Wound Care Center Nurse 3 #5 RT LAT LE POST-OP -Primary Dressing Applied NonAdherent Contact Layer, Promogran Pankaj Matter -Primary Dressing Covered/Secured with Dry Gauze & Roll Gauze, Secured with Tape -Promogran Pankaj Matter 1 BLE -Compression Wrap Brittany Wrap -Other 6 in Pain Scale: 0-10 Numeric Is Patient Pain Free? Yes WC - Visit Discharge Discharge Condition Stable Ambulatory Status Ambulatory Medication Reconcilliation completed & No provided to [...] dermal curette without incident. Predebridement measurement was 7.5 x 1.3 x 0.1 cm. Postdebridement measurement was 7.8 x 1.6 x 0.1 cm. The area was wiped clean and patted dry. Moist Pankaj was applied followed by Adaptic dry sterile dressing and Brittany wrap to the bilateral lower extremity. Patient will continue every other day dressing change. He is to elevate whenever at rest. He is to continue strict blood sugar control. Follow-up at the wound care center with Dr. Shannon in 1 week. 03/14/25 1218 <Electronically signed by Aaron Shannon DPM> Cosigner Signature (if applicable): CC: ~ Signed [facility] Work Phone: [phone]) 114-574909-03-2025 Progress note [facility] [address] [place] [address] Progress Note - Wound Care 03/14/25 1216 MR#: [id number] Acct: [id number] Name: JADON ALVAREZ Rep #:[id number] 1 : 1955 69 From: Aaron AVILA PCP: Kathleen Herzog MD Status:REG RCR Location: History of Present Illness Date of Service: 03/14/25 Chief Complaint: Right buttock ulceration History of Wound: Patient is 69-year-old male chronic ulceration to the lateral right leg stable with no sign of infection. Progress of Wound: Stable slow healing full-thickness wound lateral right leg Subjective Subjective Patient is a 69-year-old diabetic male presenting to wound care center today forfollow-up evaluation of full-thickness wound to the lateral right leg. Patient has been getting dressing changes by long-term facility. He is wearing compression wraps during today's visit. Unfortunately the patient is suffering from a UTI and taking Cipro 250 mg for the next 10 days. Overall his leg is improving. He denies trauma. He denies constitutional symptoms. No other pedal complaints at this time. Objective Data Objective Data Vital Signs: Vital Signs Temp Pulse Resp BP O2 Del Method 96.8 F L 61 18 150/80 H Room Air 03/14/25 08:54 03/14/25 08:54 03/14/25 08:54 03/14/25 08:54 03/14/25 08:54 Oxygen Delivery Method Room Air Physical Exam Narrative Vascular: DP and PT [...] the lateral aspect of the right legmeasuring 7.8 x 1.6x 0.1 cm. Wound base is granular. No malodor or probe to bone. No sign of infection. Excisional debridement of the right leg lateral aspect full-thickness ulcerationdown to and including subcutaneous tissue with a number 5 mm dermal curette without incident. Predebridement measurement was 7.5 x 1.3 x 0.1 cm. Postdebridement measurement was 7.8 x 1.6 x 0.1 cm. Musculoskeletal: No pain to palpation to full-thickness ulceration. No pain with calf compression. Debridement Note Debridement Note Debridement Free Text: Excisional debridement of the right leg lateral aspect full-thickness ulceration down to and including subcutaneous tissue with a number 5 mm dermal curette without incident. Predebridement measurement was 7.5x 1.3 x 0.1 cm. Postdebridement measurement was 7.8 x 1.6 x 0.1 cm. Post-Debridement Measurements and Additional Note: Post-Debridement Measurements/Treatment WC - Nurse 1 - General Ulcer Assessment Start: 03/14/25 08:54 Freq: Status: Active Protocol: GALE Activity Type Activity Date Activity User E-sign Co-sign Detail Recorded Client Recorded Date Recorded By Document 03/14/25 08:54 HANNAH [id number] 03/14/25 09:05 HANNAH 03/14/25 08:54 WC - Today's Visit Information Type of service Follow-up Visit (Physician/ENDOSCOPY TECH ) Arrival Mode Ambulatory Patient Identification Verified (Name & Yes ) Vital Signs Temperature (97.8 F-99.1 F) 96.8 F L Temperature Source Temporal Pulse Rate (60-100) 61 Pulse Location Monitor Respiratory Rate (12-18) 18 Respiratory rate source Observation Oxygen Delivery Method Room Air Blood Pressure (90/60-120/80) 150/80 H Blood Pressure Mean (mm Hg) 103 Source Monitor Position Semi-Fowlers Blood Pressure Location Left Arm History Since Last Visit- (Skip if this is Patient's initial visit) Have you changed medications since your No last visit? Any new allergies or adverse reactions No Had a fall/change in ADL's that may No increase risk of falls Signs or symptoms of abuse and/or No neglect since last visit Have you been in the hospital since your Yes last visit? Has dressing in place as prescribed Yes Has compression in place as prescribed Yes Has offloadiing in place as prescribed N/A Experienced any changes in pain level or No management Left Footwear Regular Shoe Right Footwear Regular Shoe Pain Scale: 0-10 Numeric Is Patient Pain Free? Yes - Nurse 1 - General Ulcer Measurement Start: 03/14/25 08:54 Freq: Status: Active Protocol: Activity Type Activity Date Activity User E-sign Co-sign Detail Recorded Client Recorded Date Recorded By Document 03/14/25 08:54 KW [id number] 03/14/25 09:05 03/14/25 08:54 Wound Center Nurse 1 #5 RT LAT LE POST-OP -Current Size (cm) - Length 6.7 -Current Size (cm) - Width 1.8 -Current Size (cm) - Depth 0.1 -Total Square Cm 12.06 -Date of Last Picture (Recall this 03/14/25 field) -Epithelialization Medium 34-66% -Exudate Amt Medium -Exudate Type Serosanguineous -Wound Margin Distinct, Outline Attached -Granulation Amt Large (67-100%) -Granulation Quality Red -Necrosis Amt Small (1-33%) -Necrotic Tissue Type Adherent Slough -Texture (Mariza-wound Skin Appearance) Assessed, Scarring -Moisture (Mariza-wound Skin Appearance) Assessed -Color (Mariza-wound Skin Appearance) Assessed -Temperature (Mariza-wound Skin No Abnormality Appearance) (Pt Warm) -Tenderness on Palpation (Mariza-wound No Skin Appearance) -Ulcer Cleansing Soap and Water -Foul Odor after Cleansing No -Anesthetic Used 5% Lidocaine Gel WC - Nurse 2 - General Ulcer CM Notes Start: 03/14/25 08:54 Freq: Status: Active Protocol: Activity Type Activity Date Activity User E-sign Co-sign Detail Recorded Client Recorded Date Recorded By Document 03/14/25 09:19 JF [id number] 03/14/25 09:23 03/14/25 09:19 Wound Center Nurse 2 -Time 09:22 -Correct Patient Yes -Correct Side, Site, Position Yes -Correct Procedure Yes -Procedure Performed Yes -Type of Procedure Debridement -Clinical Debridement Subcutaneous -Tissue Removed Subcutaneous -Post Debridement (cm) - Length 7 -Post Debridement (cm) - Width 1.6 -Post Debridement (cm) - Depth 0.1 -Total Square (Post) (cm) 11.2 -Area of Debridement (cm) - Length 7 -Area of Debridement (cm) - Width 1.6 -Total Square (Area) (cm) 11.2 -Tunneling No -Undermining/Tunneling No -Circular Undermining No -Wound/Ulcer Outcome Not Healed -Ulcer Cleansing Rinsed/ Irrigated with Saline -Foul Odor after Cleansing No -Bioengineered Tissue No -Bleeding Controlled with Pressure -Treatment Response Procedure Tolerated Well -Offloading No -Debridement - Subq, 1st 20sq cm Yes Pain Scale: 0-10 Numeric Is Patient Pain Free? Yes - Nurse 3 - General Ulcer D/C NN Start: 03/14/25 08:54 Freq: Status: Active Protocol: Activity Type Activity Date Activity User E-sign Co-sign Detail Recorded Client Recorded Date Recorded By Document 03/14/25 09:31 KW [id number] 03/14/25 09:32 KW 03/14/25 09:31 Wound Care Center Nurse 3 #5 RT LAT LE POST-OP -Primary Dressing Applied NonAdherent Contact Layer, Promogran Pankaj Matter -Primary Dressing Covered/Secured with Dry Gauze & Roll Gauze, Secured with Tape -Promogran Pankaj Matter 1 BLE -Compression Wrap Brittany Wrap -Other 6 in Pain Scale: 0-10 Numeric Is Patient Pain Free? Yes WC - Visit Discharge Discharge Condition Stable Ambulatory Status Ambulatory Medication Reconcilliation completed & No provided to [...] dermal curette without incident. Predebridement measurement was 7.5 x 1.3 x 0.1 cm. Postdebridement measurement was 7.8 x 1.6 x 0.1 cm. The area was wiped clean and patted dry. Moist Pankaj was applied followed by Adaptic dry sterile dressing and Brittany wrap tothe bilateral lower extremity. Patient will continue every other day dressing change. He is to elevate whenever at rest. He is to continue strict blood sugar control. Follow-up at the wound care center with Dr. Shannon in 1 week. 03/14/25 1218 Cosigner Signature (if applicable): CC: ~ Signed [facility]09-01-2025 Radiology Diagnostic study note [facility] [address] [place] [address] Acute Abdomen Inc Chest MR#: [id number] Acct: [id number] Name: JADON ALVAREZ Rep #: [id number] 2 : 1955 M 69 From: Quincy Prieto MD PCP: Kathleen Herzog MD Status: REG ER Study:Acute Abdomen Inc Chest Date of Exam: 03/11/25 Exam# [id number] Ordering Dr: Yuki Ho DO PROCEDURE: ACUTE ABDOMEN INC CHEST 03/11/2025 REASON FOR EXAM: CONSTIPATION, ABD PAIN, SOB TECHNIQUE: Procedure Code: RADABDCA Modality: DX Procedure: ACUTE ABDOMEN INC CHEST COMPARISON: CT scan on 10/10/2024. FINDINGS: Mild amount of fecal residue in the large bowels. Mild diffuse gaseous dilatation of the remaining bowels. There is no demonstrated free abdominal air. Normal visualized liver. Normal visualized spleen. Normal visualized kidneys. The soft tissue structures of the pelvis are unremarkable. Diffuse spondylosis. Unremarkable median sternotomy wires. The lungs are expanded. There is no demonstrated parenchymal abnormality. There is no demonstrated pleural abnormality. Enlarged cardiac silhouette. Normal mediastinum and stacey. Normal visualized pulmonary arteries. Atheromatous plaques of the visualized aortic arch and descending thoracic aorta. Diffuse spondylosis of the visualized thoracic spine. Normal visualized ribs, clavicles. Degenerative joint disease. RAD/Acute Abdomen Inc Chest IMPRESSION: Mild amount of fecal residue in the large bowels. Mild diffuse gaseous dilatation of the remaining bowels. Reading [facility] CC: Dr. Malinda Ho DO; Kathleen Herzog MD ~ Compilation Clerk: Signed [facility]09-01-2025 Radiology Diagnostic study note [facility] [address] [place] [id number] Brain/Head without Contrast MR#: [id number] Acct: [id number] Name: JADON ALVAREZ Rep #: [id number] 1 : 1955 M 69 From: Quincy Prieto MD PCP: Kathleen Herzog MD Status: REG ER Study:Brain/Head without Contrast Date of Exa m: 03/11/25 Exam# [id number] Ordering Dr: Yuki Ho DO PROCEDURE: BRAIN/HEAD WITHOUT CONTRAST 03/12/2025 REASON FOR EXAM: WEAKNESS, AMS TECHNIQUE: Procedure Code: CTBR Modality: CT Procedure: BRAIN/HEAD WITHOUT CONTRAST Coronal and Sagittal reconstruction series were provided. One or more dose reduction techniques were used (e.g., Automated exposure control, adjustment of the mA and/or kV according to patient size, use of iterative reconstruction technique. RADIATION DOSE SUMMARY: CTDlvol: 44.99 mGy DLP: 812.98 mGycm COMPARISON: 01-06-2028 FINDINGS: The visualized brain parenchyma shows normal appearance. No focal parenchymal abnormalities are demonstrated. Humphrey-white matter differentiation is maintained. Normal CT appearance of the posterior fossa structures. No intracerebral or extra-axial hemorrhage. No midline shifts or deformity. Normal size and configuration of the cerebral ventricles. Dilated cortical sulci. No definite calvarial fractures. The osseous structures in the skull base are unremarkable. Paranasal sinuses show left maxillary mucosal thickening. CT/Brain/Head without Contrast IMPRESSION: No intracerebral or extra-axial hemorrhage. No acute cerebrovascular insult. If clinical symptoms persist, further evaluation with MRI may be considered as clinically warranted. Unremarkable non-enhanced CT study for the brain. No interval changes since the last study. Reading Location: [place] [address] CC: Dr. Malinda Ho DO; Kathleen Herzog MD ~ Compilation Clerk: Signed [facility]08-27-2025 Progress note Author Aaron Shannon [facility] Note Date/Time March 07, 2025 9: 55am [facility] [address] [place] [address] Progress Note - Wound Care 03/07/25 0953 MR#: [id number] Acct: [id number] Name: JADON ALVAREZ Rep #:[id number] 5 : 1955 69 From: Aaron Iniguez PM PCP: Kathleen Herzog MD Status:REG RCR Location: History of Present Illness Date of Service: 03/07/25 Chief Complaint: Right buttock ulceration History of Wound: Patient is 69-year-old male chronic ulceration to the lateral right leg stable with no sign of infection. Progress of Wound: Chronic slow healing right leg full-thickness wound. Subjective Subjective Patient is a 69-year-old male presenting to clinic today follow-up evaluation offull-thickness wound to the lateral left leg. Patient has been getting dressingchanges at the long-term facility with compression. He admits to some bleeding with dressing changes but overall he notices mild improvement to the wound. He is grateful for his care. Denies trauma. Denies constitutional symptoms. No other pedal complaints at this time. Objective Data Objective Data Vital Signs: Vital Signs Temp Pulse Resp BP O2 Del Method 6.0 F L 60 18 135/77 H Room Air 03/07/25 08:51 03/07/25 08:51 03/07/25 08:51 03/07/25 08:51 03/07/25 08:51 Oxygen Delivery Method Room Air Physical Exam Narrative Vascular: DP and PT [...] the lateral aspect of the right legmeasuring 8.2 x 1.5 x 0.1 cm. Wound base is granular. No malodor or probe to bone. No sign of infection. Excisional debridement of the right leg lateral aspect full-thickness ulcerationdown to and including subcutaneous tissue with a number 5 mm dermal curette without incident. Predebridement measurement was 8.0 x 1.3 x 0.1 cm. Postdebridement measurement was 8.2 x 1.5 x 0.1 cm. Musculoskeletal: No pain to palpation to full-thickness ulceration. No pain with calf compression. Debridement Note Debridement Note Debridement Free Text: Excisional debridement of the right leg lateral aspect full-thickness ulceration down to and including subcutaneous tissue with a number 5 mm dermal curette without incident. Predebridement measurement was 8.0x 1.3 x 0.1 cm. Postdebridement measurement was 8.2 x 1.5 x 0.1 cm. Post-Debridement Measurements and Additional Note: Post-Debridement Measurements/Treatment - Nurse 1 - General Ulcer Assessment Start: 02/14/25 09:10 Freq: Status: Active Protocol: GALE Activity Type Activity Date Activity User E-sign Co-sign Detail Recorded Client Recorded Date Recorded By Document 02/14/25 09:10 MT [id number] 02/14/25 09:15 MT Document 02/28/25 09:21 KW [id number] 02/28/25 09:26 KW Document 03/07/25 08:51 KW [id number] 03/07/25 09:05 KW 02/14/25 02/28/25 03/07/25 09:10 09:21 08:51 - Today's Visit Information Type of service Follow-up Visit Follow-up Visit Follow-up Visit (Physician/ENDOSCOPY TECH (Physician/ENDOSCOPY TECH (Physician/ENDOSCOPY TECH ) ) ) Arrival Mode Ambulatory Ambulatory Ambulatory Accompanied by self Patient Identification Verified (Name & Yes Yes Yes ) Safety Precautions Fall Prevention Vital Signs Temperature (97.8 F-99.1 F) 98 F 96.2 F L 6.0 F L Temperature Source Temporal Temporal Temporal Pulse Rate (60-100) 64 55 L 60 Pulse Location Monitor Monitor Monitor Respiratory Rate (12-18) 18 18 18 Respiratory rate source Monitor Monitor Observation Oxygen Delivery Method Room Air Room Air Room Air Blood Pressure (90/60-120/80) 127/77 H 129/79 H 135/77 H Blood Pressure Mean (mm Hg) 93 95 96 Source Monitor Monitor Monitor Position Semi-Fowlers Semi-Fowlers Semi-Fowlers Blood Pressure Location Left Arm Left Arm Left Arm History Since Last Visit- (Skip [...] dressing in place as prescribed Yes Yes Yes Has compression in place as prescribed Yes No Yes Has offloadiing in place as prescribed Yes N/A N/A Experienced any changes in pain level or Yes No No management Left Footwear Regular Shoe Regular Shoe Regular Shoe Right Footwear Regular Shoe Regular Shoe Regular Shoe Pain Scale: 0-10 Numeric Is Patient Pain Free? Yes Yes Yes WC - Nurse 1 - General Ulcer Measurement Start: 02/14/25 09:10 Freq: Status: Active Protocol: Activity Type Activity Date Activity User E-sign Co-sign Detail Recorded Client Recorded Date Recorded By Document 02/14/25 09:10 MT [id number] 02/14/25 09:15 MT Document 02/28/25 09:21 KW [id number] 02/28/25 09:26 KW Document 03/07/25 08:51 KW [id number] 03/07/25 09:05 KW 02/14/25 02/28/25 03/07/25 09:10 09:21 08:51 Wound Center Nurse 1 #5 RT LAT LE POST-OP -Current Size (cm) - Length 3.5 13 12.3 -Current Size (cm) - Width 1.6 1.5 1.5 -Current Size (cm) - Depth 0.1 0.1 0.1 -Total Square Cm 5.60 19.5 18.45 -Date of Last Picture (Recall this 02/14/25 02/28/25 03/07/25 field) -Photo Taken Yes -Tunneling No -Undermining/Tunneling No -Circular Undermining No -Exudate Amt Medium Medium Medium -Exudate Type Serous Serosanguineous Serosanguineous -Wound Margin Flat & Intact Distinct, Thickened Outline Attached -Granulation Amt Large (67-100%) Large (67-100%) Large (67-100%) -Granulation Quality [place],Red Red Red -Necrosis Amt None Present (0 Small (1-33%) %) -Necrotic Tissue Type Adherent Slough -Texture (Mariza-wound Skin Appearance) Assessed Assessed Assessed -Moisture (Mariza-wound Skin Appearance) Assessed Assessed Assessed -Color (Mariza-wound Skin Appearance) Assessed Assessed Assessed -Temperature (Mariza-wound Skin No Abnormality No Abnormality No Abnormality Appearance) (Pt Warm) (Pt Warm) (Pt Warm) -Tenderness on Palpation (Mariza-wound No No No Skin Appearance) -Ulcer Cleansing Not Cleansed Soap and Water Soap and Water -Foul Odor after Cleansing No No No -Anesthetic Used 5% Lidocaine 5% Lidocaine 5% Lidocaine Gel Gel Gel Lower Limb Edema Present NA Right Calf (cm) 35 34.5 Right Ankle (cm) 25 23.5 Left Calf (cm) 38.5 37.5 Left Ankle (cm) 26.2 24 WC - Nurse 2 - General Ulcer CM Notes Start: 02/14/25 09:10 Freq: Status: Active Protocol: Activity Type Activity Date Activity User E-sign Co-sign Detail Recorded Client Recorded Date Recorded By Document 02/14/25 09:27 JF [id number] 02/14/25 09:29 JF Document 02/28/25 09:32 DS [id number] 02/28/25 09:37 DS Document 03/07/25 09:29 JF [id number] 03/07/25 09:32 JF 02/14/25 02/28/25 03/07/25 09:27 09:32 09:29 Wound Center Nurse 2 #5 RT LAT LE POST-OP -Time 09: 09:33 09:29 -Correct Patient Yes Yes Yes -Correct Side, Site, Position Yes Yes Yes -Correct Procedure Yes Yes Yes -Procedure Performed Yes Yes Yes -Type of Procedure Debridement Debridement Debridement -Clinical Debridement Subcutaneous Subcutaneous Subcutaneous -Tissue Removed Subcutaneous Subcutaneous Subcutaneous -Post Debridement (cm) - Length 3.4 7.9 8.2 -Post Debridement (cm) - Width 1.5 1.7 1.5 -Post Debridement (cm) - Depth 0.1 0.2 0.1 -Total Square (Post) (cm) 5.10 13.43 12.30 -Area of Debridement (cm) - Length 3.4 7.9 8.2 -Area of Debridement (cm) - Width 1.5 1.7 1.5 -Total Square (Area) (cm) 5.10 13.43 12.30 -Tunneling No No No -Undermining/Tunneling No No No -Circular Undermining No No No -Wound/Ulcer Outcome Not Healed Not Healed Not Healed -Ulcer Cleansing Rinsed/ Rinsed/ Rinsed/ Irrigated with Irrigated with Irrigated with Saline Saline Saline -Foul Odor after Cleansing No No No -Bioengineered Tissue No No No -Bleeding Controlled with Pressure Pressure, Pressure Surgifoam ? x 2 09/16 () -Surgifoam (3 x 2 09/16) Small 1 -Treatment Response Procedure Procedure Procedure Tolerated Well Tolerated Well Tolerated Well -Offloading No No -Debridement - Subq, 1st 20sq cm Yes Yes Yes Pain Scale: 0-10 Numeric Is Patient Pain Free? Yes Yes Yes - Nurse 3 - General Ulcer D/C NN Start: 02/14/25 09:10 Freq: Status: Active Protocol: Activity Type Activity Date Activity User E-sign Co-sign Detail Recorded Client Recorded Date Recorded By Document 02/14/25 10:21 KW [id number] 02/28/25 10:21 KW Document 02/28/25 10:08 ML [id number] 02/28/25 10:09 ML Document 03/07/25 09:47 KW [id number] 03/07/25 09:47 KW 02/14/25 02/28/25 03/07/25 10:21 10:08 09:47 Wound Care Center Nurse 3 #5 RT LAT LE POST-OP -Ulcer Cleansing Rinsed/ Irrigated with Saline -Primary Dressing Applied Promogran Promogran NonAdherent Pankaj Matter Pankaj Matter Contact Layer, Promogran Pankaj Matter -Other Dressing brittany -Primary Dressing Covered/Secured with Dry Gauze & Dry Gauze,Dry Dry Gauze & Roll Gauze, Gauze & Roll Roll Gauze, Secured with Gauze,Secured Secured with Tape with Tape Tape -Promogran Pankaj Matter 1 1 1 -Wound Comment(s) MOISTEN PANKAJ BLE -Compression Wrap Brittany Wrap Brittany Wrap -Other 6 IN Pain Scale: 0-10 Numeric Is Patient Pain Free? Yes Yes Yes - Visit Discharge Discharge Condition Stable Stable Ambulatory Status Ambulatory Ambulatory Transportation Private Auto Private Auto Medication Reconcilliation completed & No No provided to patient/care provider Clinical Summary of Care Provided Yes Yes Assessment/Plan Assessment/Plan (1) Non-pressure chronic ulcer [...] dermal curette without incident. Predebridement measurement was 8.0 x 1.3 x 0.1 cm. Postdebridement measurement was 8.2 x 1.5 x 0.1 cm. The area was wiped clean and patted dry. Moist Pankaj was applied followed by Adaptic dry sterile dressing and Brittany wrap to the bilateral lower extremity. Orders were given for dressing changes and to be followed based on our recommendations. Educated patient continue to rest and elevate is much as he can as well as continue strict blood sugar control which he is understanding of. Follow-up at the wound care center with Dr. Shannon in 1 week. 03/07/25954 <Electronically signed by Aaron Shannon DPM> Cosigner Signature (if applicable): CC: ~ Signed [facility] Work Phone: [phone] Progress note [facility] [address] [place] [address] Progress Note - Wound Care 03/07/25 0953 MR#: [id number] Acct: [id number] Name: JADON ALVAREZ Rep #:[id number] : 1955 69 From: Aaron Iniguez PM PCP: Kathleen Herzog MD Status:REG RCR Location: History of Present Illness Date of Service: 03/07/25 Chief Complaint: Right buttock ulceration History of Wound: Patient is 69-year-old male chronic ulceration to the lateral right leg stable with no sign of infection. Progress of Wound: Chronic slow healing right leg full-thickness wound. Subjective Subjective Patient is a 69-year-old male presenting to clinic today follow-up evaluation offull-thickness wound to the lateral left leg. Patient has been getting dressingchanges at the long-term facility with compression. He admits to some bleeding with dressing changes but overall he notices mild improvement to the wound. He is grateful for his care. Denies trauma. Denies constitutional symptoms. No other pedal complaints at this time. Objective Data Objective Data Vital Signs: Vital Signs Temp Pulse Resp BP O2 Del Method 6.0 F L 60 18 135/77 H Room Air 03/07/25 08:51 03/07/25 08:51 03/07/25 08:51 03/07/25 08:51 03/07/25 08:51 Oxygen Delivery Method Room Air Physical Exam Narrative Vascular: DP and PT [...] the lateral aspect of the right legmeasuring 8.2 x 1.5x 0.1 cm. Wound base is granular. No malodor or probe to bone. No sign of infection. Excisional debridement of the right leg lateral aspect full-thickness ulcerationdown to and including subcutaneous tissue with a number 5 mm dermal curette without incident. Predebridement measurement was 8.0 x 1.3 x 0.1 cm. Postdebridement measurement was 8.2 x 1.5 x 0.1 cm. Musculoskeletal: No pain to palpation to full-thickness ulceration. No pain with calf compression. Debridement Note Debridement Note Debridement Free Text: Excisional debridement of the right leg lateral aspect full-thickness ulceration down to and including subcutaneous tissue with a number 5 mm dermal curette without incident. Predebridement measurement was 8.0x 1.3 x 0.1 cm. Postdebridement measurement was 8.2 x 1.5 x 0.1 cm. Post-Debridement Measurements and Additional Note: Post-Debridement Measurements/Treatment - Nurse 1 - General Ulcer Assessment Start: 02/14/25 09:10 Freq: Status: Active Protocol: .NATALIE Activity Type Activity Date Activity User E-sign Co-sign Detail Recorded Client Recorded Date Recorded By Document 02/14/25 09:10 NC [id number] 02/14/25 09:15 NC Document 02/28/25 09:21 KW [id number] 02/28/25 09:26 KW Document 03/07/25 08:51 [id number] 03/07/25 09:05 KW 02/14/25 02/28/25 03/07/25 09:10 09:21 08:51 - Today's Visit Information Type of service Follow-up Visit Follow-up Visit Follow-up Visit (Physician/ENDOSCOPY TECH (Physician/ENDOSCOPY TECH (Physician/ENDOSCOPY TECH ) ) ) Arrival Mode Ambulatory Ambulatory Ambulatory Accompanied by self Patient Identification Verified (Name & Yes Yes Yes ) Safety Precautions Fall Prevention Vital Signs Temperature (97.8 F-99.1 F) 98 F 96.2 F L 6.0 F L Temperature Source Temporal Temporal Temporal Pulse Rate (60-100) 64 55 L 60 Pulse Location Monitor Monitor Monitor Respiratory Rate (12-18) 18 18 18 Respiratory rate source Monitor Monitor Observation Oxygen Delivery Method Room Air Room Air Room Air Blood Pressure (90/60-120/80) 127/77 H 129/79 H 135/77 H Blood Pressure Mean (mm Hg) 93 95 96 Source Monitor Monitor Monitor Position Semi-Fowlers Semi-Fowlers Semi-Fowlers Blood Pressure Location Left Arm Left Arm Left Arm History Since Last Visit- (Skip [...] dressing in place as prescribed Yes Yes Yes Has compression in place as prescribed Yes No Yes Has offloadiing in place as prescribed Yes N/A N/A Experienced any changes in pain level or Yes No No management Left Footwear Regular Shoe Regular Shoe Regular Shoe Right Footwear Regular Shoe Regular Shoe Regular Shoe Pain Scale: 0-10 Numeric Is Patient Pain Free? Yes Yes Yes WC - Nurse 1 - General Ulcer Measurement Start: 02/14/25 09:10 Freq: Status: Active Protocol: Activity Type Activity Date Activity User E-sign Co-sign Detail Recorded Client Recorded Date Recorded By Document 02/14/25 09:10 NC [id number] 02/14/25 09:15 NC Document 02/28/25 09:21 KW [id number] 02/28/25 09:26 KW Document 03/07/25 08:51 KW [id number] 03/07/25 09:05 KW 02/14/25 02/28/25 03/07/25 09:10 09:21 08:51 Wound Center Nurse 1 #5 RT LAT LE POST-OP -Current Size (cm) - Length 3.5 13 12.3 -Current Size (cm) - Width 1.6 1.5 1.5 -Current Size (cm) - Depth 0.1 0.1 0.1 -Total Square Cm 5.60 19.5 18.45 -Date of Last Picture (Recall this 02/14/25 02/28/25 03/07/25 field) -Photo Taken Yes -Tunneling No -Undermining/Tunneling No -Circular Undermining No -Exudate Amt Medium Medium Medium -Exudate Type Serous Serosanguineous Serosanguineous -Wound Margin Flat & Intact Distinct, Thickened Outline Attached -Granulation Amt Large (67-100%) Large (67-100%) Large (67-100%) -Granulation Quality [place],Red Red Red -Necrosis Amt None Present (0 Small (1-33%) %) -Necrotic Tissue Type Adherent Slough -Texture (Mariza-wound Skin Appearance) Assessed Assessed Assessed -Moisture (Mariza-wound Skin Appearance) Assessed Assessed Assessed -Color (Mariza-wound Skin Appearance) Assessed Assessed Assessed -Temperature (Mariza-wound Skin No Abnormality No Abnormality No Abnormality Appearance) (Pt Warm) (Pt Warm) (Pt Warm) -Tenderness on Palpation (Mariza-wound No No No Skin Appearance) -Ulcer Cleansing Not Cleansed Soap and Water Soap and Water -Foul Odor after Cleansing No No No -Anesthetic Used 5% Lidocaine 5% Lidocaine 5% Lidocaine Gel Gel Gel Lower Limb Edema Present NA Right Calf (cm) 35 34.5 Right Ankle (cm) 25 23.5 Left Calf (cm) 38.5 37.5 Left Ankle (cm) 26.2 24 WC - Nurse 2 - General Ulcer CM Notes Start: 02/14/25 09:10 Freq: Status: Active Protocol: Activity Type Activity Date Activity User E-sign Co-sign Detail Recorded Client Recorded Date Recorded By Document 02/14/25 09:27 [id number] 02/14/25 09:29 JF Document 02/28/25 09:32 DS [id number] 02/28/25 09:37 DS Document 03/07/25 09:29 [id number] 03/07/25 09:32 02/14/25 02/28/25 03/07/25 09:27 09:32 09:29 Wound Center Nurse 2 #5 RT LAT LE POST-OP -Time 09: 09:33 09:29 -Correct Patient Yes Yes Yes -Correct Side, Site, Position Yes Yes Yes -Correct Procedure Yes Yes Yes -Procedure Performed Yes Yes Yes -Type of Procedure Debridement Debridement Debridement -Clinical Debridement Subcutaneous Subcutaneous Subcutaneous -Tissue Removed Subcutaneous Subcutaneous Subcutaneous -Post Debridement (cm) - Length 3.4 7.9 8.2 -Post Debridement (cm) - Width 1.5 1.7 1.5 -Post Debridement (cm) - Depth 0.1 0.2 0.1 -Total Square (Post) (cm) 5.10 13.43 12.30 -Area of Debridement (cm) - Length 3.4 7.9 8.2 -Area of Debridement (cm) - Width 1.5 1.7 1.5 -Total Square (Area) (cm) 5.10 13.43 12.30 -Tunneling No No No -Undermining/Tunneling No No No -Circular Undermining No No No -Wound/Ulcer Outcome Not Healed Not Healed Not Healed -Ulcer Cleansing Rinsed/ Rinsed/ Rinsed/ Irrigated with Irrigated with Irrigated with Saline Saline Saline -Foul Odor after Cleansing No No No -Bioengineered Tissue No No No -Bleeding Controlled with Pressure Pressure, Pressure Surgifoam ? x 2 38 () -Surgifoam (3/4 x 2 8) Small 1 -Treatment Response Procedure Procedure Procedure Tolerated Well Tolerated Well Tolerated Well -Offloading No No -Debridement - Subq, 1st 20sq cm Yes Yes Yes Pain Scale: 0-10 Numeric Is Patient Pain Free? Yes Yes Yes - Nurse 3 - General Ulcer D/C NN Start: 02/14/25 09:10 Freq: Status: Active Protocol: Activity Type Activity Date Activity User E-sign Co-sign Detail Recorded Client Recorded Date Recorded By Document 02/14/25 10:21 KW [id number] 02/28/25 10:21 KW Document 02/28/25 10:08 ML [id number] 02/28/25 10:09 ML Document 03/07/25 09:47 KW [id number] 03/07/25 09:47 KW 02/14/25 02/28/25 03/07/25 10:21 10:08 09:47 Wound Care Center Nurse 3 #5 RT LAT LE POST-OP -Ulcer Cleansing Rinsed/ Irrigated with Saline -Primary Dressing Applied Promogran Promogran NonAdherent Pankaj Matter Pankaj Matter Contact Layer, Promogran Pankaj Matter -Other Dressing brittany -Primary Dressing Covered/Secured with Dry Gauze & Dry Gauze,Dry Dry Gauze & Roll Gauze, Gauze & Roll Roll Gauze, Secured with Gauze,Secured Secured with Tape with Tape Tape -Promogran Pankaj Matter 1 1 1 -Wound Comment(s) MOISTEN PANKAJ BLE -Compression Wrap Brittany Wrap Brittany Wrap -Other 6 IN Pain Scale: 0-10 Numeric Is Patient Pain Free? Yes Yes Yes WC - Visit Discharge Discharge Condition Stable Stable Ambulatory Status Ambulatory Ambulatory Transportation Private Auto Private Auto Medication Reconcilliation completed & No No provided to patient/care provider Clinical Summary of Care Provided Yes Yes Assessment/Plan Assessment/Plan (1) Non-pressure chronic ulcer [...] dermal curette without incident. Predebridement measurement was 8.0 x 1.3 x 0.1 cm. Postdebridement measurement was 8.2 x 1.5 x 0.1 cm. The area was wiped clean and patted dry. Moist Pankaj was applied followed by Adaptic dry sterile dressing and Brittany wrap tothe bilateral lower extremity. Orders were given for dressing changes and to be followed based on our recommendations. Educated patient continue to rest and elevate is much as he can as well as continue strict blood sugar control which he is understanding of. Follow-up at the wound care center with Dr. Shannon in 1 week. 03/07/25 0955 Cosigner Signature (if applicable): CC: ~ Signed [facility]08-20-2025 Progress note Author Aaorn Shannon [facility] Note Date/Time February 28, 2025 12 :36pm [facility] [address] [place] [address] Progress Note - Wound Care 02/28/25 1233 MR#: [id number] Acct: [id number] Name: JADON ALVAREZ Rep #:[id number] : 1955 69 From: Aaron Iniguez PM PCP: Kathleen Herzog MD Status:REG RCR Location: History of Present Illness Date of Service: 02/28/25 Chief Complaint: Right buttock ulceration History of Wound: Patient is 69-year-old male chronic ulceration to the lateral right leg stable with no sign of infection. Progress of Wound: Chronic slow healing right leg full-thickness wound. Subjective Subjective Patient is a 69-year-old male presenting to wound care center today follow-up evaluation of right lower extremity lateral full-thickness wound. Patient is residing in a long-term facility getting dressing changes. However patient keeps complaining that the facility is not using the Brittany wrap's to the bilateral lower extremity as ordered. He has been very frustrated with his care. He is elevating as discussed. He denies trauma. Denies constitutional symptoms. No other pedal complaints. His blood sugars well-controlled. Objective Data Objective Data Vital Signs: Vital Signs Temp Pulse Resp BP O2 Del Method 96.2 F L 55 L 18 129/79 H Room Air 02/28/25 09:21 02/28/25 09:21 02/28/25 09:21 02/28/25 09:21 02/28/25 09:21 Oxygen Delivery Method Room Air Physical Exam Narrative Vascular: DP and PT [...] the lateral aspect of the right legmeasuring 7.9 x 1.7 x 0.2 cm. Wound base is granular. No malodor or probe to bone. No sign of infection. Excisional debridement of the right leg lateral aspect full-thickness ulcerationdown to and including subcutaneous tissue with a number 5 mm dermal curette without incident. Predebridement measurement was 7.7 x 1.5 x 0.1 cm. Postdebridement measurement was 7.9 x 1.7 x 0.2 cm. Musculoskeletal: No pain to palpation to full-thickness ulceration. No pain with calf compression. Debridement Note Debridement Note Debridement Free Text: Excisional debridement of the right leg lateral aspect full-thickness ulceration down to and including subcutaneous tissue with a number 5 mm dermal curette without incident. Predebridement measurement was 7.7x 1.5 x 0.1 cm. Postdebridement measurement was 7.9 x 1.7 x 0.2 cm. Post-Debridement Measurements and Additional Note: Post-Debridement Measurements/Treatment WC - Nurse 1 - General Ulcer Assessment Start: 02/14/25 09:10 Freq: Status: Active Protocol: GALE Activity Type Activity Date Activity User E-sign Co-sign Detail Recorded Client Recorded Date Recorded By Document 02/14/25 09:10 NC [id number] 02/14/25 09:15 MT Document 02/28/25 09:21 KW [id number] 02/28/25 09:26 KW 02/14/25 02/28/25 09:10 09:21 - Today's Visit Information Type of service Follow-up Visit Follow-up Visit (Physician/ENDOSCOPY TECH (Physician/ENDOSCOPY TECH ) ) Arrival Mode Ambulatory Ambulatory Accompanied by self Patient Identification Verified (Name & Yes Yes ) Safety Precautions Fall Prevention Vital Signs Temperature (97.8 F-99.1 F) 98 F 96.2 F L Temperature Source Temporal Temporal Pulse Rate (60-100) 64 55 L Pulse Location Monitor Monitor Respiratory Rate (12-18) 18 18 Respiratory rate source Monitor Monitor Oxygen Delivery Method Room Air Room Air Blood Pressure (90/60-120/80) 127/77 H 129/79 H Blood Pressure Mean (mm Hg) 93 95 Source Monitor Monitor Position Semi-Fowlers Semi-Fowlers Blood Pressure Location Left Arm Left Arm History Since Last Visit- (Skip [...] Has compression in place as prescribed Yes No Has offloadiing in place as prescribed Yes N/A Experienced any changes in pain level or Yes No management Left Footwear Regular Shoe Regular Shoe Right Footwear Regular Shoe Regular Shoe Pain Scale: 0-10 Numeric Is Patient Pain Free? Yes Yes - Nurse 1 - General Ulcer Measurement Start: 02/14/25 09:10 Freq: Status: Active Protocol: Activity Type Activity Date Activity User E-sign Co-sign Detail Recorded Client Recorded Date Recorded By Document 02/14/25 09:10 NC [id number] 02/14/25 09:15 MT Document 02/28/25 09:21 KW [id number] 02/28/25 09:26 KW 02/14/25 02/28/25 09:10 09:21 Wound Center Nurse 1 #5 RT LAT LE POST-OP -Current Size (cm) - Length 3.5 13 -Current Size (cm) - Width 1.6 1.5 -Current Size (cm) - Depth 0.1 0.1 -Total Square Cm 5.60 19.5 -Date of Last Picture (Recall this 02/14/25 02/28/25 field) -Photo Taken Yes -Tunneling No -Undermining/Tunneling No -Circular Undermining No -Exudate Amt Medium Medium -Exudate Type Serous Serosanguineous -Wound Margin Flat & Intact Distinct, Outline Attached -Granulation Amt Large (67-100%) Large (67-100%) -Granulation Quality [place],Red Red -Necrosis Amt None Present (0 %) -Texture (Mariza-wound Skin Appearance) Assessed Assessed -Moisture (Mariza-wound Skin Appearance) Assessed Assessed -Color (Mariza-wound Skin Appearance) Assessed Assessed -Temperature (Mariza-wound Skin No Abnormality No Abnormality Appearance) (Pt Warm) (Pt Warm) -Tenderness on Palpation (Mariza-wound No No Skin Appearance) -Ulcer Cleansing Not Cleansed Soap and Water -Foul Odor after Cleansing No No -Anesthetic Used 5% Lidocaine 5% Lidocaine Gel Gel Lower Limb Edema Present NA Right Calf (cm) 35 Right Ankle (cm) 25 Left Calf (cm) 38.5 Left Ankle (cm) 26.2 WC - Nurse 2 - General Ulcer CM Notes Start: 02/14/25 09:10 Freq: Status: Active Protocol: Activity Type Activity Date Activity User E-sign Co-sign Detail Recorded Client Recorded Date Recorded By Document 02/14/25 09:27 JF [id number] 02/14/25 09:29 JF Document 02/28/25 09:32 DS [id number] 02/28/25 09:37 DS 02/14/25 02/28/25 09:27 09:32 Wound Center Nurse 2 #5 RT LAT LE POST-OP -Time 09:27 09:33 -Correct Patient Yes Yes -Correct Side, Site, Position Yes Yes -Correct Procedure Yes Yes -Procedure Performed Yes Yes -Type of Procedure Debridement Debridement -Clinical Debridement Subcutaneous Subcutaneous -Tissue Removed Subcutaneous Subcutaneous -Post Debridement (cm) - Length 3.4 7.9 -Post Debridement (cm) - Width 1.5 1.7 -Post Debridement (cm) - Depth 0.1 0.2 -Total Square (Post) (cm) 5.10 13.43 -Area of Debridement (cm) - Length 3.4 7.9 -Area of Debridement (cm) - Width 1.5 1.7 -Total Square (Area) (cm) 5.10 13.43 -Tunneling No No -Undermining/Tunneling No No -Circular Undermining No No -Wound/Ulcer Outcome Not Healed Not Healed -Ulcer Cleansing Rinsed/ Rinsed/ Irrigated with Irrigated with Saline Saline -Foul Odor after Cleansing No No -Bioengineered Tissue No No -Bleeding Controlled with Pressure Pressure, Surgifoam ? x 2 3/8 () -Surgifoam (3/4 x 2 3/8) Small 1 -Treatment Response Procedure Procedure Tolerated Well Tolerated Well -Offloading No -Debridement - Subq, 1st 20sq cm Yes Yes Pain Scale: 0-10 Numeric Is Patient Pain Free? Yes Yes - Nurse 3 - General Ulcer D/C NN Start: 02/14/25 09:10 Freq: Status: Active Protocol: Activity Type Activity Date Activity User E-sign Co-sign Detail Recorded Client Recorded Date Recorded By Document 02/14/25 10:21 KW [id number] 02/28/25 10:21 KW Document 02/28/25 10:08 ML [id number] 02/28/25 10:09 ML 02/14/25 02/28/25 10:21 10:08 Wound Care Center Nurse 3 #5 RT LAT LE POST-OP -Ulcer Cleansing Rinsed/ Irrigated with Saline -Primary Dressing Applied Promogran Promogran Pankaj Matter Pankaj Matter -Other Dressing brittany -Primary Dressing Covered/Secured with Dry Gauze & Dry Gauze,Dry Roll Gauze, Gauze & Roll Secured with Gauze,Secured Tape with Tape -Promogran Pankaj Matter 1 1 BLE -Compression Wrap Brittany Wrap Pain [...] dermal curette without incident. Predebridement measurement was 7.7 x 1.5 x 0.1 cm. Postdebridement measurement was 7.9 x 1.7 x 0.2 cm. The right lower extremities were cleaned and patted dry. Moist pankaj was applied followed by dry sterile dressing and Brittany wrap. Encouraged ambulation. Educated the patient continue rest and elevate his bilateral lower extremity. A phone call was made to the nursing refrigeration supervisor at the [facility]. The phone call was not answered but a detailed message regarding the patient's concerns with callback number to my cell phone was given. Will try to discuss further with the nursing refrigeration supervisor. If that is unsuccessful reach out to director of the nursing facility. Follow-up at the wound care center with Dr. Shannon in 1 week. 02/28/25 1236 <Electronically signed by Aaron Shannon DPM> Cosigner Signature (if applicable): CC: ~ Signed [facility] Work Phone: 1(353) 918-889508-20-2025 Progress note [facility] [address] [place] [address] Progress Note - Wound Care 02/28/25 1233 MR#: [id number] Acct: [id number] Name: JADON ALVAREZ Rep #:[id number] 3 : 1955 69 From: Aaron AVILA PCP: Kathleen Herzog MD Status:REG RCR Location: History of Present Illness Date of Service: 02/28/25 Chief Complaint: Right buttock ulceration History of Wound: Patient is 69-year-old male chronic ulceration to the lateral right leg stable with no sign of infection. Progress of Wound: Chronic slow healing right leg full-thickness wound. Subjective Subjective Patient is a 69-year-old male presenting to wound care center today follow-up evaluation of right lower extremity lateral full-thickness wound. Patient is residing in a long-term facility getting dressing changes. However patient keeps complaining that the facility is not using the Brittany wrap'sto the bilateral lower extremity as ordered. He has been very frustrated with his care. He is elevating as discussed. He denies trauma. Denies constitutional symptoms. No other pedal complaints. His blood sugars well-controlled. Objective Data Objective Data Vital Signs: Vital Signs Temp Pulse Resp BP O2 Del Method 96.2 F L 55 L 18 129/79 H Room Air 02/28/25 09:21 02/28/25 09:21 02/28/25 09:21 02/28/25 09:21 02/28/25 09:21 Oxygen Delivery Method Room Air Physical Exam Narrative Vascular: DP and PT [...] the lateral aspect of the right legmeasuring 7.9 x 1.7x 0.2 cm. Wound base is granular. No malodor or probe to bone. No sign of infection. Excisional debridement of the right leg lateral aspect full-thickness ulcerationdown to and including subcutaneous tissue with a number 5 mm dermal curette without incident. Predebridement measurement was 7.7 x 1.5 x 0.1 cm. Postdebridement measurement was 7.9 x 1.7 x 0.2 cm. Musculoskeletal: No pain to palpation to full-thickness ulceration. No pain with calf compression. Debridement Note Debridement Note Debridement Free Text: Excisional debridement of the right leg lateral aspect full-thickness ulceration down to and including subcutaneous tissue with a number 5 mm dermal curette without incident. Predebridement measurement was 7.7x 1.5 x 0.1 cm. Postdebridement measurement was 7.9 x 1.7 x 0.2 cm. Post-Debridement Measurements and Additional Note: Post-Debridement Measurements/Treatment CODY - Nurse 1 - General Ulcer Assessment Start: 02/14/25 09:10 Freq: Status: Active Protocol: GALE Activity Type Activity Date Activity User E-sign Co-sign Detail Recorded Client Recorded Date Recorded By Document 02/14/25 09:10 NC [id number] 02/14/25 09:15 NC Document 02/28/25 09:21 KW [id number] 02/28/25 09:26 KW 02/14/25 02/28/25 09:10 09:21 - Today's Visit Information Type of service Follow-up Visit Follow-up Visit (Physician/ENDOSCOPY TECH (Physician/ENDOSCOPY TECH ) ) Arrival Mode Ambulatory Ambulatory Accompanied by self Patient Identification Verified (Name & Yes Yes ) Safety Precautions Fall Prevention Vital Signs Temperature (97.8 F-99.1 F) 98 F 96.2 F L Temperature Source Temporal Temporal Pulse Rate (60-100) 64 55 L Pulse Location Monitor Monitor Respiratory Rate (12-18) 18 18 Respiratory rate source Monitor Monitor Oxygen Delivery Method Room Air Room Air Blood Pressure (90/60-120/80) 127/77 H 129/79 H Blood Pressure Mean (mm Hg) 93 95 Source Monitor Monitor Position Semi-Fowlers Semi-Fowlers Blood Pressure Location Left Arm Left Arm History Since Last Visit- (Skip [...] Has compression in place as prescribed Yes No Has offloadiing in place as prescribed Yes N/A Experienced any changes in pain level or Yes No management Left Footwear Regular Shoe Regular Shoe Right Footwear Regular Shoe Regular Shoe Pain Scale: 0-10 Numeric Is Patient Pain Free? Yes Yes - Nurse 1 - General Ulcer Measurement Start: 02/14/25 09:10 Freq: Status: Active Protocol: Activity Type Activity Date Activity User E-sign Co-sign Detail Recorded Client Recorded Date Recorded By Document 02/14/25 09:10 NC [id number] 02/14/25 09:15 NC Document 02/28/25 09:21 KW [id number] 02/28/25 09:26 KW 02/14/25 02/28/25 09:10 09:21 Wound Center Nurse 1 #5 RT LAT LE POST-OP -Current Size (cm) - Length 3.5 13 -Current Size (cm) - Width 1.6 1.5 -Current Size (cm) - Depth 0.1 0.1 -Total Square Cm 5.60 19.5 -Date of Last Picture (Recall this 02/14/25 02/28/25 field) -Photo Taken Yes -Tunneling No -Undermining/Tunneling No -Circular Undermining No -Exudate Amt Medium Medium -Exudate Type Serous Serosanguineous -Wound Margin Flat & Intact Distinct, Outline Attached -Granulation Amt Large (67-100%) Large (67-100%) -Granulation Quality [place],Red Red -Necrosis Amt None Present (0 %) -Texture (Mariza-wound Skin Appearance) Assessed Assessed -Moisture (Mariza-wound Skin Appearance) Assessed Assessed -Color (Mariza-wound Skin Appearance) Assessed Assessed -Temperature (Mariza-wound Skin No Abnormality No Abnormality Appearance) (Pt Warm) (Pt Warm) -Tenderness on Palpation (Mariza-wound No No Skin Appearance) -Ulcer Cleansing Not Cleansed Soap and Water -Foul Odor after Cleansing No No -Anesthetic Used 5% Lidocaine 5% Lidocaine Gel Gel Lower Limb Edema Present NA Right Calf (cm) 35 Right Ankle (cm) 25 Left Calf (cm) 38.5 Left Ankle (cm) 26.2 WC - Nurse 2 - General Ulcer CM Notes Start: 02/14/25 09:10 Freq: Status: Active Protocol: Activity Type Activity Date Activity User E-sign Co-sign Detail Recorded Client Recorded Date Recorded By Document 02/14/25 09:27 TALI [id number] 02/14/25 09:29 JF Document 02/28/25 09:32 DS [id number] 02/28/25 09:37 DS 02/14/25 02/28/25 09:27 09:32 Wound Center Nurse 2 #5 RT LAT LE POST-OP -Time 09:27 09:33 -Correct Patient Yes Yes -Correct Side, Site, Position Yes Yes -Correct Procedure Yes Yes -Procedure Performed Yes Yes -Type of Procedure Debridement Debridement -Clinical Debridement Subcutaneous Subcutaneous -Tissue Removed Subcutaneous Subcutaneous -Post Debridement (cm) - Length 3.4 7.9 -Post Debridement (cm) - Width 1.5 1.7 -Post Debridement (cm) - Depth 0.1 0.2 -Total Square (Post) (cm) 5.10 13.43 -Area of Debridement (cm) - Length 3.4 7.9 -Area of Debridement (cm) - Width 1.5 1.7 -Total Square (Area) (cm) 5.10 13.43 -Tunneling No No -Undermining/Tunneling No No -Circular Undermining No No -Wound/Ulcer Outcome Not Healed Not Healed -Ulcer Cleansing Rinsed/ Rinsed/ Irrigated with Irrigated with Saline Saline -Foul Odor after Cleansing No No -Bioengineered Tissue No No -Bleeding Controlled with Pressure Pressure, Surgifoam ? x 2 38 (sm) -Surgifoam (3/4 x 2 3) Small 1 -Treatment Response Procedure Procedure Tolerated Well Tolerated Well -Offloading No -Debridement - Subq, 1st 20sq cm Yes Yes Pain Scale: 0-10 Numeric Is Patient Pain Free? Yes Yes - Nurse 3 - General Ulcer D/C NN Start: 02/14/25 09:10 Freq: Status: Active Protocol: Activity Type Activity Date Activity User E-sign Co-sign Detail Recorded Client Recorded Date Recorded By Document 02/14/25 10:21 KW [id number] 02/28/25 10:21 KW Document 02/28/25 10:08 ML [id number] 02/28/25 10:09 ML 02/14/25 02/28/25 10:21 10:08 Wound Care Center Nurse 3 #5 RT LAT LE POST-OP -Ulcer Cleansing Rinsed/ Irrigated with Saline -Primary Dressing Applied Promogran Promogran Pankaj Matter Pankaj Matter -Other Dressing brittany -Primary Dressing Covered/Secured with Dry Gauze & Dry Gauze,Dry Roll Gauze, Gauze & Roll Secured with Gauze,Secured Tape with Tape -Promogran Pankaj Matter 1 1 BLE -Compression Wrap Brittany Wrap Pain Scale: 0-10 Numeric Is Patient Pain Free? Yes Yes WC - Visit Discharge Discharge Condition [...] dermal curette without incident. Predebridement measurement was 7.7 x 1.5 x 0.1 cm. Postdebridement measurement was 7.9 x 1.7 x 0.2 cm. The right lower extremities were cleaned and patted dry. Moist pankaj was applied followed by dry sterile dressing and Acewrap. Encouraged ambulation. Educated the patient continue rest and elevate his bilateral lower extremity. A phone call was made to the nursing refrigeration supervisor at the [facility]. The phone call was not answered but a detailed message regarding the patient's concerns with callback number to my cell phone was given. Will try to discuss further with the nursing refrigeration supervisor. If that is uns uccessful reach out to director of the nursing facility. Follow-up at the wound care center with Dr. Shannon in 1 week. 02/28/25 1236 Cosigner Signature (if applicable): CC: ~ Signed [facility]08-06-2025 Progress note Author Aaron Shannon [facility] Note Date/Time February 14, 2025 10: 25am [facility] [address] [place] [address] Progress Note - Wound Care 02/14/25 0941 MR#: [id number] Acct: [id number] Name: JADON ALVAREZ Rep #:[id number] 3 : 1955 69 From: Aaron Iniguez PM PCP: Kathleen Herzog MD Status:REG RCR Location: History of Present Illness Date of Service: 02/14/25 Chief Complaint: Right buttock ulceration History of Wound: Patient is 69-year-old male chronic ulceration to the lateral right leg stable with no sign of infection. Progress of Wound: Improving right leg ulceration Subjective Subjective Mr. Gutierrez is a 69-year-old diabetic male presenting to wound care center todayfor follow-up evaluation of right lower extremity lateral full-thickness wound. Patient states that his brittany wraps have been coming off when he returns to facility not being donned as ordered. He is frustrated with the treatment that he is getting at the long-term facility. Overall his blood sugars well-controlled. He denies any new onset of falls. Denies trauma. Denies constitutional symptoms. No other pedal complaints at this time. Objective Data Objective Data Vital Signs: Vital Signs Temp Pulse Resp BP O2 Del Method 98 F 64 18 127/77 H Room Air 02/14/25 09:10 02/14/25 09:10 02/14/25 09:10 02/14/25 09:10 02/14/25 09:10 Oxygen Delivery Method Room Air Physical Exam Narrative Vascular: DP and PT [...] the lateral aspect of the right legmeasuring 3.4 x 1.5 x 0.1 cm. Wound base is granular. No malodor or probe to bone. No sign of infection. Excisional debridement of the right leg lateral aspect full-thickness ulcerationdown to and including subcutaneous tissue with a number 5 mm dermal curette without incident. Predebridement measurement was 3.3 x 1.3 x 0.1 cm. Postdebridement measurement was 3.4 x 1.5 x 0.1 cm. Musculoskeletal: No pain to palpation to full-thickness ulceration. No pain with calf compression. Debridement Note Debridement Note Debridement Free Text: Excisional debridement of the right leg lateral aspect full-thickness ulceration down to and including subcutaneous tissue with a number 5 mm dermal curette without incident. Predebridement measurement was 3.3x 1.3 x 0.1 cm. Postdebridement measurement was 3.4 x 1.5 x 0.1 cm. Post-Debridement Measurements and Additional Note: Post-Debridement Measurements/Treatment - Nurse 1 - General Ulcer Assessment Start: 02/14/25 09:10 Freq: Status: Active Protocol: GALE Activity Type Activity Date Activity User E-sign Co-sign Detail Recorded Client Recorded Date Recorded By Document 02/14/25 09:10 NC [id number] 02/14/25 09:15 NC 02/14/25 09:10 - Today's Visit Information Type of service Follow-up Visit (Physician/ENDOSCOPY TECH ) Arrival Mode Ambulatory Accompanied by self Patient Identification Verified (Name & Yes ) Safety Precautions Fall Prevention Vital Signs Temperature (97.8 F-99.1 F) 98 F Temperature Source Temporal Pulse Rate (60-100) 64 Pulse Location Monitor Respiratory Rate (12-18) 18 Respiratory rate source Monitor Oxygen Delivery Method Room Air Blood Pressure (90/60-120/80) 127/77 H Blood Pressure Mean (mm Hg) 93 Source Monitor Position Semi-Fowlers Blood Pressure Location Left Arm History Since Last Visit- (Skip if this is Patient's initial visit) Has dressing in place as prescribed Yes Has compression in place as prescribed Yes Has offloadiing in place as prescribed Yes Experienced any changes in pain level or Yes management Left Footwear Regular Shoe Right Footwear Regular Shoe Pain Scale: 0-10 Numeric Is Patient Pain Free? Yes WC - Nurse 1 - General Ulcer Measurement Start: 02/14/25 09:10 Freq: Status: Active Protocol: Activity Type Activity Date Activity User E-sign Co-sign Detail Recorded Client Recorded Date Recorded By Document 02/14/25 09:10 NC [id number] 02/14/25 09:15 NC 02/14/25 09:10 Wound Center Nurse 1 #5 RT LAT LE POST-OP -Current Size (cm) - Length 3.5 -Current Size (cm) - Width 1.6 -Current Size (cm) - Depth 0.1 -Total Square Cm 5.60 -Date of Last Picture (Recall this 02/14/25 field) -Photo Taken Yes -Tunneling No -Undermining/Tunneling No -Circular Undermining No -Exudate Amt Medium -Exudate Type Serous -Wound Margin Flat & Intact -Granulation Amt Large (67-100%) -Granulation Quality [place],Red -Necrosis Amt None Present (0 %) -Texture (Mariza-wound Skin Appearance) Assessed -Moisture (Mariza-wound Skin Appearance) Assessed -Color (Mariza-wound Skin Appearance) Assessed -Temperature (Mariza-wound Skin No Abnormality Appearance) (Pt Warm) -Tenderness on Palpation (Mariza-wound No Skin Appearance) -Ulcer Cleansing Not Cleansed -Foul Odor after Cleansing No -Anesthetic Used 5% Lidocaine Gel Lower Limb Edema Present NA CODY - Nurse 2 - General Ulcer CM Notes Start: 02/14/25 09:10 Freq: Status: Active Protocol: Activity Type Activity Date Activity User E-sign Co-sign Detail Recorded Client Recorded Date Recorded By Document 02/14/25 09:27 TALI [id number] 02/14/25 09:29 JF 02/14/25 09:27 Wound Center Nurse 2 #5 RT LAT LE POST-OP -Time 09:27 -Correct Patient Yes -Correct Side, Site, Position Yes -Correct Procedure Yes -Procedure Performed Yes -Type of Procedure Debridement -Clinical Debridement Subcutaneous -Tissue Removed Subcutaneous -Post Debridement (cm) - Length 3.4 -Post Debridement (cm) - Width 1.5 -Post Debridement (cm) - Depth 0.1 -Total Square (Post) (cm) 5.10 -Area of Debridement (cm) - Length 3.4 -Area of Debridement (cm) - Width 1.5 -Total Square (Area) (cm) 5.10 -Tunneling No -Undermining/Tunneling No -Circular Undermining No [...] dermal curette without incident. Predebridement measurement was 3.3 x 1.3 x 0.1 cm. Postdebridement measurement was 3.4 x 1.5 x 0.1 cm. The right lower extremities were cleaned and patted dry. Moist pankaj was applied followed by dry sterile dressing and Brittany wrap. Encouraged ambulation. Educated the patient continue rest and elevate his bilateral lower extremity. Educated patient on strict blood sugar control. I did educate the patient that he needs to make sure that the compression wraps are staying on in between dressing changes and he is to have a voice at the alf to make sure that the wraps are being placed as ordered. Follow-up at the wound care center with Dr. Shannon in 1 week. 02/14/25 1025 <Electronically signed by Aaron Shannon DPM> Cosigner Signature (if applicable): CC: ~ Signed [facility] Work Phone: 1(449) 193-135308-06-2025 Progress note [facility] [address] [place] [address] Progress Note - Wound Care 02/14/25 0941 MR#: [id number] Acct: [id number] Name: JADON ALVAREZ Rep #:[id number] 3 : 1955 69 From: Aaron Iniguez PM PCP: Kathleen Herzog MD Status:REG RCR Location: History of Present Illness Date of Service: 02/14/25 Chief Complaint: Right buttock ulceration History of Wound: Patient is 69-year-old male chronic ulceration to the lateral right leg stable with no sign of infection. Progress of Wound: Improving right leg ulceration Subjective Subjective Mr. Gutierrez is a 69-year-old diabetic male presenting to wound care center todayfor follow-up evaluation of right lower extremity lateral full-thickness wound. Patient states that his brittany wraps have been coming off when he returns to facility not being donned as ordered. He is frustrated with the treatment that he is getting at the long-term facility. Overall his blood sugars well-controlled. He denies any new onset of falls. Denies trauma. Denies constitutional symptoms. No other pedal complaints at this time. Objective Data Objective Data Vital Signs: Vital Signs Temp Pulse Resp BP O2 Del Method 98 F 64 18 127/77 H Room Air 02/14/25 09:10 02/14/25 09:10 02/14/25 09:10 02/14/25 09:10 02/14/25 09:10 Oxygen Delivery Method Room Air Physical Exam Narrative Vascular: DP and PT [...] the lateral aspect of the right legmeasuring 3.4 x 1.5x 0.1 cm. Wound base is granular. No malodor or probe to bone. No sign of infection. Excisional debridement of the right leg lateral aspect full-thickness ulcerationdown to and including subcutaneous tissue with a number 5 mm dermal curette without incident. Predebridement measurement was 3.3 x 1.3 x 0.1 cm. Postdebridement measurement was 3.4 x 1.5 x 0.1 cm. Musculoskeletal: No pain to palpation to full-thickness ulceration. No pain with calf compression. Debridement Note Debridement Note Debridement Free Text: Excisional debridement of the right leg lateral aspect full-thickness ulceration down to and including subcutaneous tissue with a number 5 mm dermal curette without incident. Predebridement measurement was 3.3x 1.3 x 0.1 cm. Postdebridement measurement was 3.4 x 1.5 x 0.1 cm. Post-Debridement Measurements and Additional Note: Post-Debridement Measurements/Treatment - Nurse 1 - General Ulcer Assessment Start: 02/14/25 09:10 Freq: Status: Active Protocol: GALE Activity Type Activity Date Activity User E-sign Co-sign Detail Recorded Client Recorded Date Recorded By Document 02/14/25 09:10 NC [id number] 02/14/25 09:15 NC 02/14/25 09:10 - Today's Visit Information Type of service Follow-up Visit (Physician/ENDOSCOPY TECH ) Arrival Mode Ambulatory Accompanied by self Patient Identification Verified (Name & Yes ) Safety Precautions Fall Prevention Vital Signs Temperature (97.8 F-99.1 F) 98 F Temperature Source Temporal Pulse Rate (60-100) 64 Pulse Location Monitor Respiratory Rate (12-18) 18 Respiratory rate source Monitor Oxygen Delivery Method Room Air Blood Pressure (90/60-120/80) 127/77 H Blood Pressure Mean (mm Hg) 93 Source Monitor Position Semi-Fowlers Blood Pressure Location Left Arm History Since Last Visit- (Skip if this is Patient's initial visit) Has dressing in place as prescribed Yes Has compression in place as prescribed Yes Has offloadiing in place as prescribed Yes Experienced any changes in pain level or Yes management Left Footwear Regular Shoe Right Footwear Regular Shoe Pain Scale: 0-10 Numeric Is Patient Pain Free? Yes - Nurse 1 - General Ulcer Measurement Start: 02/14/25 09:10 Freq: Status: Active Protocol: Activity Type Activity Date Activity User E-sign Co-sign Detail Recorded Client Recorded Date Recorded By Document 02/14/25 09:10 NC [id number] 02/14/25 09:15 NC 02/14/25 09:10 Wound Center Nurse 1 #5 RT LAT LE POST-OP -Current Size (cm) - Length 3.5 -Current Size (cm) - Width 1.6 -Current Size (cm) - Depth 0.1 -Total Square Cm 5.60 -Date of Last Picture (Recall this 02/14/25 field) -Photo Taken Yes -Tunneling No -Undermining/Tunneling No -Circular Undermining No -Exudate Amt Medium -Exudate Type Serous -Wound Margin Flat & Intact -Granulation Amt Large (67-100%) -Granulation Quality [place],Red -Necrosis Amt None Present (0 %) -Texture (Mariza-wound Skin Appearance) Assessed -Moisture (Mariza-wound Skin Appearance) Assessed -Color (Mariza-wound Skin Appearance) Assessed -Temperature (Mariza-wound Skin No Abnormality Appearance) (Pt Warm) -Tenderness on Palpation (Mariza-wound No Skin Appearance) -Ulcer Cleansing Not Cleansed -Foul Odor after Cleansing No -Anesthetic Used 5% Lidocaine Gel Lower Limb Edema Present NA WC - Nurse 2 - General Ulcer CM Notes Start: 02/14/25 09:10 Freq: Status: Active Protocol: Activity Type Activity Date Activity User E-sign Co-sign Detail Recorded Client Recorded Date Recorded By Document 02/14/25 09:27 [id number] 02/14/25 09:29 02/14/25 09:27 Wound Center Nurse 2 #5 RT LAT LE POST-OP -Time 09:27 -Correct Patient Yes -Correct Side, Site, Position Yes -Correct Procedure Yes -Procedure Performed Yes -Type of Procedure Debridement -Clinical Debridement Subcutaneous -Tissue Removed Subcutaneous -Post Debridement (cm) - Length 3.4 -Post Debridement (cm) - Width 1.5 -Post Debridement (cm) - Depth 0.1 -Total Square (Post) (cm) 5.10 -Area of Debridement (cm) - Length 3.4 -Area of Debridement (cm) - Width 1.5 -Total Square (Area) (cm) 5.10 -Tunneling No -Undermining/Tunneling No -Circular Undermining No [...] dermal curette without incident. Predebridement measurement was 3.3 x 1.3 x 0.1 cm. Postdebridement measurement was 3.4 x 1.5 x 0.1 cm. The right lower extremities were cleaned and patted dry. Moist pankaj was applied followed by dry sterile dressing and Acewrap. Encouraged ambulation. Educated the patient continue rest and elevate his bilateral lower extremity. Educated patient on strict blood sugar control. I did educate the patient that he needs to make sure that the compression wraps are staying on in between dressing changes and he is to have a voice at the alf to make sure that the wraps are being placed as ordered. Follow-up at the wound care center with Dr. Shannon in 1 week. 02/14/25 1025 Cosigner Signature (if applicable): CC: ~ Signed [facility]07-16-2025 Progress note Author Aaron Shannon [facility] Note Date/Time January 24, 2025 12:0 5pm [facility] [address] [place] [address] Progress Note - Wound Care 01/24/25 1200 MR#: [id number] Acct: [id number] Name: JADON ALVAREZ Rep #:[id number] 4 : 1955 69 From: Aaron Iniguez [...] Start: 01/24/25 09:47 Freq: Status: Active Protocol: CODY.NATALIE Activity Type Activity Date Activity User E-sign Co-sign Detail Recorded Client Recorded Date Recorded By Document 01/24/25 09:48 [id number] 01/24/25 09:58 01/24/25 09:48 - Today's Visit Information Type of service Follow-up Visit (Physician/ENDOSCOPY TECH ) Arrival Mode Wheelchair Transfer Assistance Manual [...] Recorded Date Recorded By Document 01/24/25 09:48 [id number] 01/24/25 09:58 01/24/25 09:48 Wound Center Nurse [...] Recorded Date Recorded By Document 01/24/25 10:09 JF [id number] 01/24/25 10:09 TALI 01/24/25 10:09 Wound Center [...] Patient Pain Free? Yes WC - Nurse 3 - General Ulcer D/C NN Start: 01/24/25 09:47 Freq: Status: Active Protocol: Activity Type Activity Date Activity User E-sign Co-sign Detail Recorded Client Recorded Date Recorded By Document 01/24/25 10:19 KW [id number] 01/24/25 10:20 KW 01/24/25 10:19 Wound Care Center Nurse 3 #5 RT LAT LE POST-OP -Primary Dressing Applied Promogran Pankaj Matter -Primary Dressing Covered/Secured with Dry Gauze & Roll Gauze, Secured with Tape -Promogran Pankaj Matter 1 BLE -Compression Wrap Brittany Wrap [...] extremities were cleaned and patted dry. Moist pankaj was applied followed by dry sterile dressing and Tubigrip. Encouraged ambulation. Educated the patient continue rest and elevate his bilateral lower extremity. Educated patient on strict blood sugar control. Follow-up at the wound care center with Dr. Shannon in 1 week. 01/24/25 1205 <Electronically signed by Aaron Shannon DPM> Cosigner Signature (if applicable): CC: ~ Signed [facility] Work Phone: 1(676) 435-315007-16-2025 Progress note [facility] [address] [place] [address] Progress Note - Wound Care 01/24/25 1200 MR#: [id number] Acct: [id number] Name: JADON ALVAREZ Rep #:[id number] 4 : 1955 69 From: Aaron Iniguez [...] Start: 01/24/25 09:47 Freq: Status: Active Protocol: CODY.LOWEXT Activity Type Activity Date Activity User E-sign Co-sign Detail Recorded Client Recorded Date Recorded By Document 01/24/25 09:48 CP [id number] 01/24/25 09:58 CP 01/24/25 09:48 - Today's Visit Information Type of service Follow-up Visit (Physician/ENDOSCOPY TECH ) Arrival Mode Wheelchair Transfer Assistance Manual [...] Recorded Date Recorded By Document 01/24/25 09:48 [id number] 01/24/25 09:58 01/24/25 09:48 Wound Center Nurse [...] Recorded Date Recorded By Document 01/24/25 10:09 JF [id number] 01/24/25 10:09 TALI 01/24/25 10:09 Wound Center [...] Date Recorded By Document 01/24/25 10:19 KW [id number] 01/24/25 10:20 KW 01/24/25 10:19 Wound Care Center Nurse 3 #5 RT LAT LE POST-OP -Primary Dressing Applied Promogran Pankaj Matter -Primary Dressing Covered/Secured with Dry Gauze & Roll Gauze, Secured with Tape -Promogran Pankaj Matter 1 BLE -Compression Wrap Brittany Wrap [...] extremities were cleaned and patted dry. Moist pankaj was applied followed by dry sterile dressing and Tubigrip. Encouraged ambulation. Educated the patient continue rest and elevate his bilateral lower extremity. Educated patient on strict blood sugar control. Follow-up at the wound care center with Dr. Shannon in 1 week. 01/24/25 1205 Cosigner Signature (if applicable): CC: ~ Signed [facility]07-05-2025 Note. MICRO - Microbiology PROCEDURE: Urine Culture [...] Locations *1: This test was performed at: [facility], [address] [place] [address], [id number] , [facility] [id number] Emergency department Discharge summary Discharge Instructions Thank you for allowing [facility] to assist you with your healthcare needs. [...] (Santyl) Topical Once a day Unchanged DME (Death by Party Anai 2 Deland) See Instructions Use reader to scan sensor daily for blood sugar checks. Scan at least once every 8 hours Unchanged DME (FreeStyle Deland 14 day sensor) See Instructions 1 month [...] to receive it can visit one of [facility] vaccine clinics. There are many vaccine clinic locations within the [facility]. For locations and available times, please visit www.gettheshot.coronavirus.[place].gov/. It is important to note that some COVID mobile vaccine clinics are held outdoors and may be canceled in rainy or stormy conditions. To learn more about pediatric vaccinations (ages 5-11), we invite you to visit the [facility] webpage. https://www.[facility].org/pages/7543-Rtmtl-Cmemlccesjv-Apfyyarduq-Yqfie-Jfd stions.htmlTo learn more about the COVID-19 vaccine, we invite you to visit the CDC website for a list of frequently asked questions. https://www.cdc.gov/coronavirus/2019-ncov/vaccines/faq.html [facility] Patient Portal Access Instructions: Stay connected with your healthcare team and access your personal medical information anytime with the [facility] Patient Portal. If you would like a full copy of your medical records please contact the [facility] Medical Records Department Wednesday through Wednesday between 8a.m. and 4:30p.m. Please follow the directions below to access the portal: 1.Access the email account you provided upon registration to the hospital.2.Look for an invitation email from [facility].3.Open the email and access the invitation link: Accept Invitation to [facility]4.Fill in the required breen to create your account. Sign into [email or web address] with your username and password that you [...] you will allow to register on the [facility] Patient Portal for access to your information. You can also access the [facility] Patient Portal on the [employer]. Simply click on Health Records under [employer] and then click on the [facility] logo. HOW TO SAFELY DISPOSE OF PRESCRIPTION [...] Call your local pharmacy or go to [email or web address] [email or web address] to find one close to you.3.Make use of household items: Use cat litter or old coffee grounds to dispose medications if other options arenot available. Mix your drugs with these household products, seal them in an airtight container andthrow it into the garbage. Call [facility]: [phone] to be sure your drugs can be [...] aware that I should contact my doctor. 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: Relationship to Patient: Witness Name/Signature: Date/Time: [id number] Note* Exam Date Time Procedure Performing Provider Status 01/10/25 10:36 PM EKG (ED) - CV RAGHAV TOLBERT DO; Au (Verified) ECG Final Report SINUS RHYTHM NONSPECIFIC INTRAVENTRICULAR CONDUCTION DELAY Electronic Signature: RAGHAV TOLBERT DO 01/10/2025 23:00:21 [id number] Hospital Discharge instructionsAdditional Instructions Date of Discharge: 01/06/25[facility] Work Phone: 1(770) 871-760006-28-2025 Discharge summary Author Louie Ramachandranrain[facility] lake medical centeradelaide [facility] Note Date/Time January 06, 2025 10:5 6am [facility] Medical Records Department [address] [place] [address] Transfer to [facility] MR#: [id number] Acct: [id number] Name: JADON ALVAREZ Rep #:[id number] : 1955 69 From: Louie Howard DO PCP: Kathleen Herzog MD Status:ADM IN Certification of patient admission REQUIRED AT TIME OF ADMISSION. I CERTIFY THAT [facility] SERVICES ARE REQUIRED TO BE GIVEN ON AN IN-PATIENT BASIS BECAUSE OF THE ABOVE NAMED PATIENT'S NEED FOR GROUP HOME CARE ON A CONTINUING BASIS FOR THE CONDITION(S) FOR WHICH HE/SHE WAS RECEIVING IN-PATIENT HOSPITAL SERVICES PRIOR TO HIS/HER TRANSFER TO THE [facility]. 01/06/25 1056<Electronically signed by Louie Howard DO> [...] Allie Swann MD; Kathleen Herzog MD ~ [facility] Work Phone: 1([phone]) 553-214106-28-2025 [facility]06-27-2025 Discharge summary Author Vivek Villatoro [facility] Note Date/Time January 05, 2025 4:20 pm [facility] Medical Records Department [address] [place] [address] Emergency Department Summary 01/05/25 MR#: [id number] Acct: [id number] Name: JADON ALVAREZ Kenia Rep #:[id number] 9 : 1955 69 From: Vivek Otero PCP: Kathleen Herzog MD Status:ADM IN Location: [address] History of Present Illness Chief Complaint: Mental Health Informant: EMS and SNF Limited: dementia and uncooperative Onset/Context/Timing Onset: Yesterday Timing: Continuous Quality: Nonverbal Location: Generalized Worsened by: Nothing Relieved by: Nothing Narrative Narrative: Patient presents with possible mental status change. Patient is nonverbal. Patient refuses to answer questions. senior care staff states that patient david had a fall yesterday. EMS reports that the patient has a history of bipolar disorder and has had similar symptoms in the past. Prior similar symptoms: Yes PFSH [facility] Medical History Major depressive disorder, single [...] 100 unit/mL (3 23 unit subcut QHS OKBI BETIC 06/01/24 Unknown History mL) subcutaneous pen [...] % (Auto) 54.3 Lymph % (Auto) 23.9 Canadian % (Auto) 16.1 H Eos % (Auto) [...] Sl. Cloudy Urine pH 8.0 Ur Specific Altoona 1.010 Urine Protein 100 H Urine Glucose [...] CHRONIC CHANGES. NO ACUTE FINDINGS. [place] Location: [facility] Chest X-Ray 01/05/25 12:30 IMPRESSION: No acute abnormality is seen. [place] Location: [facility] Portable 1 view chest x-ray was obtained. [...] shows sinusbradycardia with a rate of 52. GA interval was borderline at 200 ms. QRS interval was slightly prolonged at 122 ms. QTc interval was normal at 460 ms. Iona was normal. There are nonspecific ST-T wave [...] MD [Primary Care Provider] - Print Language: Gambian Disposition Disposition: Acute Care Hospital [facility] What to do if you have Problems For any increased pain, shortness of breath, bleeding, nausea or vomiting, chestpain, or any unexpected problems, contact your Primary Care Provider. Call [facility] ([phone]) or report to the closest Emergency Room. Call 911 if necessary. 01/05/25 1620 <Electronically signed by Vivek Villatoro DO> Cosigner Signature (if applicable): CC: Kathleen Herzog MD ~ Signed [facility] Work Phone: 1(850) 360-241706-27-2025 History and physical note Author Allie Swann [facility] Note Date/Time January 05, 2025 2:53 pm [facility] Medical Records Department [address] [place] [address] H&P Exam - Hospitalist 01/05/25 1441 MR#: [id number] Acct: [id number] Name: KIMJADON Rep #:[id number] 1 : 1955 69 From: Allie Swann MD PCP: Kathleen Herzog MD Status:REG ER Location: ED HPI - General General Date of Admission: 01/05/25 Date of Service: 01/05/25 Chief Complaint: AMS HPI Narrative JADON ALVAREZ, is a 69-year-old male with history of bipolar disorder, COPD, PAWEL, diabetes, VTE, A-fib, BPH presented [facility] ED 01/05/2025with reported possible mental status change. [...] but was unable tofurther characterize that. [facility] Medical History Major depressive disorder, single [...] Sl. Cloudy, Urine pH 8.0, Ur Specific [place]ona 1.010, Urine Protein 100 H, Urine Glucose [...] Neut % (Auto) 54.3, Lymph % (Auto) 23.9,Canadian % (Auto) 16.1 H, Eos % (Auto) 5.1 H, Baso % (Auto) 0.6, Absolute Neuts (auto) 2.6, Absolute Lymphs (auto) 1.13, Nucleated RBC % 0, Sodium 139, Potassium 4.4, Chloride 102, Carbon Dioxide 25.0, Anion Gap 12, BUN 30 H, Creatinine 1.50 H, Est GFR (MDRD) Non-Af 50 L, BUN/Creatinine Ratio 19.9, Ixuzqts697 H, Calcium 9.7 Imaging Radiology Impression Brain CT 01/05/25 08:51 IMPRESSION: CHRONIC CHANGES. NO ACUTE FINDINGS. [place] Location: [id number] Chest X-Ray 01/05/25 12:30 IMPRESSION: No acute abnormality is seen. [place] Location: [id number] Assessment & Plan Assessment/Plan (1) Altered mental [...] Swann MD Charges/Coding Visit Charges Inpatient E&M: 44891 Init Hosp L2 01/05/25 1453 <Electronically signed by Allie Swann MD> Cosigner Signature (if applicable): CC: Dr. Allie Swann MD; Kathleen Herzog MD~ Signed [facility] Work Phone: 1(440) 768-986506-27-2025 Radiology Diagnostic study [facility]06-27-2025 Radiology Diagnostic study [facility]06-25-2025 Progress note Author Aaron Shannon [facility] Note Date/Time January 03, 2025 10:4 5am [facility] [address] [place] [address] Progress Note - Wound Care 01/03/25 1042 MR#: [id number] Acct: [id number] Name: JADON ALVAREZ Rep #:[id number] : 1955 69 From: Aaron Iniguez [...] has been getting dressing changes at the long-term facility as ordered. He iswearing compression at [...] Start: 01/03/25 09:51 Freq: Status: Active Protocol: CODY.LOWEXT Activity Type Activity Date Activity User E-sign Co-sign Detail Recorded Client Recorded Date Recorded By Document 01/03/25 09:51 ML [id number] 01/03/25 09:58 ML 01/03/25 09:51 - Today's Visit Information Type of service Follow-up Visit (Physician/ENDOSCOPY TECH ) Arrival Mode Wheelchair Transfer Assistance Manual [...] Date Recorded By Document 01/03/25 09:51 ML [id number] 01/03/25 09:58 ML 01/03/25 09:51 Wound Center [...] Attached -Granulation Amt Large (67-100%) -Granulation Quality [place] -Slough/Fibrin Yes -Necrosis Amt Small (1-33%) -Necrotic Tissue Type Adherent Slough -Structure Exposed N/A -Texture (Mariza-wound Skin Appearance) Scarring -Moisture (Mariza-wound Skin Appearance) Assessed -Color (Mariza-wound Skin Appearance) Assessed -Temperature (Mariza-wound Skin No Abnormality Appearance) (Pt Warm) -Tenderness on Palpation (Mariza-wound No Skin Appearance) -Ulcer Cleansing Wound Cleanser -Foul Odor after Cleansing No -Anesthetic Used 5% Lidocaine Gel - Nurse 2 - General Ulcer CM Notes Start: 01/03/25 09:51 Freq: Status: Active Protocol: Activity Type Activity Date Activity User E-sign Co-sign Detail Recorded Client Recorded Date Recorded By Document 01/03/25 10:03 DS [id number] 01/03/25 10:06 DS 01/03/25 10:03 Wound Center [...] Date Recorded By Document 01/03/25 10:21 ML [id number] 01/03/25 10:23 ML 01/03/25 10:21 Wound Care Center Nurse 3 #5 RT LAT LE POST-OP -Ulcer Cleansing Rinsed/ Irrigated with Saline -Primary Dressing Applied Promogran Pankaj Matter -Other Dressing BRITTANY -Primary Dressing Covered/Secured with Dry Gauze & Roll Gauze, Secured with Tape -Promogran Pankaj Matter 1 Pain Scale: 0-10 Numeric Is [...] Cosigner Signature (if applicable): CC: ~ Signed [facility] Work Phone: 1(160) 558-961006-25-2025 Evaluation note* Diagnosis Onset Date Resolution Status Admit Date 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 January 03, 2025 8:23am Acute kidney injury inactive January 05, 2025 2:41pm Altered mental status inactive Dec 2:41pm Urinary tract infection inactive J 2024 2:41pm 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 [address] [place] [address] Progress Note - Wound Care 11/29/24 1242 MR#: [id number] Acct: [id number] Name: JADON ALVAREZ #:[id number] : 1955 69 From: Aaron AVILA PCP: [...] Date Recorded By Document 11/29/24 09:38 HANNAH [id number] 11/29/24 09:45 11/29/24 09:38 CODY - Today's Visit Information Type of service Follow-up Visit (Physician/ENDOSCOPY TECH ) Arrival Mode Ambulatory Patient Identification Verified [...] Date Recorded By Document 11/29/24 09:38 HANNAH [id number] 11/29/24 09:45 11/29/24 09:38 Wound Center Nurse [...] Recorded Date Recorded By Document 11/29/24 10:03 [id number] 11/29/24 10:04 11/29/24 10:03 Wound Center Nurse [...] Patient Pain Free? Yes WC - Nurse 3 - General Ulcer D/C NN Start: 11/29/24 09:38 Freq: Status: Active Protocol: Activity Type Activity Date Activity User E-sign Co-sign Detail Recorded Client Recorded Date Recorded By Document 11/29/24 10:17 [id number] 11/29/24 10:18 11/29/24 10:17 Wound Care Center Nurse 3 #5 RT LAT LE POST-OP -Ulcer Cleansing Not Cleansed -Foul Odor after Cleansing No -Primary Dressing Applied Promogran Paknaj Matter -Primary Dressing Covered/Secured with Dry Gauze & Roll Gauze, Secured with Tape -Promogran Pankaj Matter 1 LLE -Tubular Bandage Double Layer [...] lower extremities werecleaned and pat dry. Moist Pankaj was fitted to the size of the wound followed by dry sterile dressing and Brittany wrap was applied. Continue the same orders for dressing changes and washing of the full-thickness wound with showers was dispensed to the patient to get back to the nursing staff at long-term facility. Follow-up at the wound care center with Dr. Shannon in 3 week. 11/29/24 1245 <Electronically signed by Aaron Shannon DPM> Cosigner Signature (if applicable): CC: ~ Signed [facility] Work Phone: 1(759) 291-400305-21-2025 Progress note [facility] [address] [place] [address] Progress Note - Wound Care 11/29/24 1242 MR#: [id number] Acct: [id number] Name: JADON ALVAREZ Rep #:[id number] 6 : 1955 69 From: Aaron AVILA PCP: [...] Start: 11/29/24 09:38 Freq: Status: Active Protocol: WC.LOWEXT Activity Type Activity Date Activity User E-sign Co-sign Detail Recorded Client Recorded Date Recorded By Document 11/29/24 09:38 KW [id number] 11/29/24 09:45 11/29/24 09:38 - Today's Visit Information Type of service Follow-up Visit (Physician/ENDOSCOPY TECH ) Arrival Mode Ambulatory Patient Identification Verified [...] Date Recorded By Document 11/29/24 09:38 KW [id number] 11/29/24 09:45 11/29/24 09:38 Wound Center Nurse [...] Recorded Date Recorded By Document 11/29/24 10:03 JF [id number] 11/29/24 10:04 JF 11/29/24 10:03 Wound Center Nurse 2 #5 [...] Recorded Date Recorded By Document 11/29/24 10:17 [id number] 11/29/24 10:18 11/29/24 10:17 Wound Care Center Nurse 3 #5 RT LAT LE POST-OP -Ulcer Cleansing Not Cleansed -Foul Odor after Cleansing No -Primary Dressing Applied Promogran Pankaj Matter -Primary Dressing Covered/Secured with Dry Gauze & Roll Gauze, Secured with Tape -Promogran Pankaj Matter 1 LLE -Tubular Bandage Double Layer [...] lower extremities werecleaned and pat dry. Moist Pankaj was fitted to the size of the wound followed by dry sterile dressing and Brittany wrap was applied. Continue the same orders for dressing changes and washing of the full-thickness wound with showers was dispensed to the patient to get back to the nursing staff at long-term facility. Follow-up at the wound care center with Dr. Shannon in 3 week. 11/29/24 1245 Cosigner Signature (if applicable): CC: ~ Signed [facility]05-21-2025 Evaluation note* Diagnosis Onset Date Resolution Status Admit Date 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 chronic November 29, 2024 9 :36am 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 chronic January 03, 2025 8:23am Acute kidney injury inactive January 05, 2025 2:41pm Altered mental status inactive Dec 2:41pm Urinary tract infection inactive J 2024 2:41pm 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 chronic January 24, 2025 8:55am 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 chronic March 07 9:00am [facility] Work Phone: 1(143) 854-781505-13-2025 History of Present illness Narrative* Lakshmi Springer, [...] PATIENT PRESENTS WITH AN IMPLANTABLE OR ATTACHED LAB CLERK: No ALLERGIES: Reviewed and unchanged CONTRAST ALLERGY: [...] DEPARTMENT: CT; Exam(s) Completed: Kidney SIGNATURE: RT Catherine(Ileana) PATIENT NAME: Jadon Alvarez DATE: November 21, 2024 TIME: 10:46 AM [facility] NoteHNO ID: [id number] Author: LAKSHMI SPRINGER RT(R) Service: Radiology Author [...] PATIENT PRESENTS WITH AN IMPLANTABLE OR ATTACHED LAB CLERK: No ALLERGIES: Reviewed and unchanged CONTRAST ALLERGY: [...] Alvarez DATE: November 21, 2024 TIME: 10:46 [facility]04-23-2025 NoteHNO ID: [id number] Author: SHAR DOWNS MD Service: ? Author Type: Physician Type: Progress Notes Filed: 11/01/2024 14:53 Note Text: [facility] ESTABLISHED PATIENT NOTE [...] 11/01/2024) ferrous sulfate 3 (more content not included)...[facility]04-09-2025 Consult note [facility] Medical Records Department [address] [place] [address] Counseling Note - Pharmacy 10/18/24 1636 MR#: [id number] Acct: [id number] Name: JADON ALVAREZ Rep #:[id number] 4 : 1955 69 From: Kinga Paniagua PCP: Kathleen Herzog MD Status:ADM IN [facility] [place] Med Recon[facility] Pharmacy Service has performed discharge [...] mL 10/18/24 10/18/24 1636 Date _ Kinga Garciaigner Signature (if applicable): Date CC: ~ Signed [facility] [id number] Consult note Author Kinga Paniagua [facility] Note Date/Time October 18, 2024 8:40 pm [facility] Medical Records Department [address] [place] [address] Counseling Note - Pharmacy 10/18/24 1636 MR#: [id number] Acct: [id number] Name: JADON ALVAREZ Rep #:[id number] 4 : 1955 69 From: Kinga Paniagua PCP: Kathleen Herzog MD Status:ADM IN Y Location: [place] [address] Pharmacy [place] Med Reconciliation Pharmacy Service has performed discharge [...] 21 days #8,400 mL 10/18/24 10/18/24 1636 <Electronically signed by Kinga Paniagua> Date _ Kinga Paniagua Cosigner Signature (if applicable): Date CC: ~ Signed [facility] Work Phone: 1(670) 913-802504-09-2025 Discharge summary Author Vivek [facility] Note Date/Time October 18, 2024 2:24 pm [facility] Medical Records Department [address] [place] [address] Discharge Summary 10/18/24 1423 MR#: [id number] Acct: [id number] Name: JADON ALVAREZ Rep #:[id number] 4 : 1955 69 From: Vivek Gates DO PCP: Kathleen Herzog MD Status:ADM IN Location[place] [facility] [id number] Providers Date of Admission: 10/13/24 Primary Care Physician: Dr. Kathleen Herzog MD Consultations 10/13/24 15:13 Consult: Infectious Disease Routine Consulting Provider: Channing Barnard Reason for Consult: MRSA bacteremia EMERGENT Consult: No MD Notified: Yes Date Notified: 10/16/24 Time Notified: 06:03 Method of Notification: Text 10/13/24 16:15 Consult: Onc/Wound/analog circuit designer Routine Comment: Reason for Consult:: chronic wound to right outer calf 10/14/24 13:01 Consult: Podiatry Routine Consulting Provider: Shayna Montoya Reason for Consult: RT. lateral superficial ulcer, 8 cm, MRSA Bacteremia EMERGENT Consult: No MD Notified: Yes Date Notified: 10/14/24 Time Notified: 13:01 Method of Notification: Verbal 10/14/24 22:52 Consult: Onc/Wound/analog circuit designer Routine Comment: Reason for Consult:: RLE chron ulcer Reason For Visit: MRSA BACTEREMIA Diagnosis Discharge Diagnosis (1) Bacteremia: Status: Acute Code(s): R78.81 - Bacteremia Plan: MRSA positive on 10/10 (1 of 2). Negative on 10/13. 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 aureus and THIRD LOADER. Recheck BCx on 10/16 negative. ID consulted. [...] % (Auto) 60.6, Lymph % (Auto) 22.8, Canadian % (Auto) 13.7 H, Eos % (Auto) [...] Physician: Kathleen Herzog Performed By: Carmella Gonsalez, RDIRAIS, RVT D/C Instructions DC O2, CPAP, BIPAP [...] bmp, cbc, and vanc trough. Fax to [phone]. Routine picc care per protocol. Continued tamsulosin [...] in before D/C Order can be placed): Alf Facility Charges/Coding Visit Charges Inpatient E&M: 10773 Disch Hosp >30min 10/18/24 1424 <Electronically signed by Vivek Gates DO> Cosigner Signature (if applicable): CC: Dr. Vivek Gates DO; Kathleen Herzog MD~ Signed [facility] Work Phone: 1(828) 157-625904-09-2025 Discharge summary Author Vivek Gates [facility] Note Date/Time October 18, 2024 2:22 pm [facility] Medical Records Department [address] [place] [address] Transfer to [facility] MR#: [id number] Acct: [id number] Name: JADON ALVAREZ Rep #:[id number] : 1955 69 From: Vivek Gates [...] SERVICES PRIOR TO HIS/HER TRANSFER TO [facility]. 10/18/24 1422<Electronically signed by Vivek Gates DO> [...] positive on 10/14 with S. aureus and THIRD LOADER. Recheck BCx on 10/16 negative. ID consulted. [...] bmp, cbc, and vanc trough. Fax to [phone]. Routine picc care per protocol. Continued tamsulosin [...] in before D/C Order can be placed): Alf Facility 10/18/24 1422 <Electronically signed by Vivek Gates DO> Cosigner Signature (if applicable): CC: RUBEN Montoya; Dr. Monika Garcias MD; Dr. Colby May MD; Dr.Robert Akil MD; Kathleen Herzog MD ~ [facility] Work Phone: 1(390) 863-344304-09-2025 Progress note Author Channing [facility] Note Date/Time October 18, 2024 1:15 pm [facility] Medical Records Department [address] [place] [address] Progress Note - Infect Disease 10/18/24 1314 MR#: [id number] Acct: [id number] Name: JADON ALVAREZ Rep #:[id number] 2 : 1955 69 From: Channing garcia MD PCP: Kathleen Herzog MD Status:ADM IN Location: [address] Physical Exam Narrative Feeling ok, no [...] stop ceftriaxone tomorrow. Will follow prn, d/w casework manager and wrote rx (2) Cellulitis of right lower limb: (3) UTI (urinary tract infection): (4) Sepsis: 10/18/24 1315 <Electronically signed by Channing Barnard MD> Cosigner Signature (if applicable): CC: ~ Signed [facility] Work Phone: 1([phone]) 981-290504-09-2025 Discharge summary [facility] Medical Records Department [address] [place] [address] Discharge Summary 10/18/24 1423 MR#: [id number] Acct: [id number] Name: JADON ALVAREZ Rep #:[id number] 4 : 1955 69 From: Vivek Gates DO PCP: Kathleen Herzog MD Status:ADM IN [facility] Providers Date of Admission: 10/13/24 Primary Care Physician: Dr. Kathleen Herzog MD Consultations 10/13/24 15:13 Consult: Infectious Disease Routine Consulting Provider: Channing Barnard Reason for Consult: MRSA bacteremia EMERGENT Consult: No Notified: Yes Date Notified: 10/16/24 Time Notified: 06:03 Method of Notification: Text 10/13/24 16:15 Consult: Onc/Wound/analog circuit designer Routine Comment: Reason for Consult:: chronic wound to right outer calf 10/14/24 13:01 Consult: Podiatry Routine Consulting Provider: Shayna Montoya Reason for Consult: RT. lateral superficial ulcer, 8 cm, MRSA Bacteremia EMERGENT Consult: No Notified: Yes Date Notified: 10/14/24 Time Notified: 13:01 Method of Notification: Verbal 10/14/24 22:52 Consult: Onc/Wound/analog circuit designer Routine Comment: Reason for Consult:: RLE chron ulcer Reason For Visit: MRSA BACTEREMIA Diagnosis Discharge Diagnosis (1) Bacteremia: Status: Acute Code(s): R78.81 - Bacteremia Plan: MRSA positive on 10/10 (1 of 2). Negative on 10/13. 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 aureus and THIRD LOADER. Recheck BCx on 10/16 negative. ID consulted. [...] % (Auto) 60.6, Lymph % (Auto) 22.8, Canadian % (Auto) 13.7 H, Eos % (Auto) [...] bmp, cbc, and vanc trough. Fax to [phone]. Routine picc care per protocol. Continued tamsulosin [...] in before D/C Order can be placed): Alf Facility Charges/Coding Visit Charges Inpatient E&M: 83414 Disch Hosp >30min 10/18/24 1424 Cosigner Signature (if applicable): CC: Dr. Vivek Gates DO; Kathleen Herzog MD~ Signed [facility]04-09-20[facility] Discharge summary [facility] Medical Records Department [address] [place] [address] Transfer to [facility] MR#: [id number] Acct: [id number] Name: JADON ALVAREZ Rep #:[id number] 7 : 1955 69 From: Vivek Gates [...] SERVICES PRIOR TO HIS/HER TRANSFER TO THE [facility]. 10/18/24 1422 Diet Diet Order/Speech Therapy: 10/16/24 [...] positive on 10/14 with S. aureus and THIRD LOADER. Recheck BCx on 10/16 negative. ID consulted. [...] bmp, cbc, and vanc trough. Fax to [phone]. Routine picc care per protocol. Continued tamsulosin [...] in before D/C Order can be placed): Alf Facility 10/18/24 1422 Cosigner Signature (if applicable): CC: RUBEN Montoya; Dr. Monika Garcias MD; Dr. Colby May MD; Dr.Robert Akil MD;Kathleen Herzog MD ~ [facility]04-09-2025 Progress note Author Vivek Gates [facility] Note Date/Time October 18, 2024 12:2 0pm [facility] Medical Records Department [address] [place] [address] Progress Note - Hospitalist 10/18/2412 MR#: [id number] Acct: [id number] Name: JADON ALVAREZ Rep #:[id number] 8 : 1955 69 From: Vivek Gates DO PCP: Kathleen Herzog MD Status:ADM IN Location: [address] Reason for Visit Reason for Visit: [...] positive on 10/14 with S. aureus and THIRD LOADER. Recheck BCx on 10/16 negative. ID consulted. [...] on apixaban. Charges/Coding Visit Charges Inpatient E&M: 83815 Subs Hosp L2 10/18/24 1220 <Electronically signed by Vivek Gates DO> Cosigner Signature (if applicable): CC: ~ Signed [facility] Work Phone: 1(953) 213-595704-09-2025 Progress note [facility] Medical Records Department [address] [place] [address] [place] [address] Progress Note - Infect Disease 10/18/24 1314 MR#: [id number] Acct: [id number] Name: JADON ALVAREZ Rep #:[id number] 2 : 1955 69 From: Channing garcia MD PCP: Kathleen Herzog MD Status:ADM IN Location: [facility] KR592-5 Physical Exam Narrative Feeling ok, no fever, [...] stop ceftriaxone tomorrow. Will follow prn, d/w casework manager and wrote rx (2) Cellulitis of right lower limb: (3) UTI (urinary tract infection): (4) Sepsis: 10/18/24 1315 Cosigner Signature (if applicable): CC: ~ Signed [facility]04-09-2025 Progress note [facility] Medical Records Department [address] [place] [address] Progress Note - Hospitalist 10/18/24711 MR#: [id number] Acct: [id number] Name: JADON ALVAREZ Rep #:[id number] 8 : 1955 69 From: Vivek Gates DO PCP: Kathleen Herzog MD Status:ADM IN Location: [place] 904466-1 Reason for Visit Reason for Visit: Diagnoses [...] positive on 10/14 with S. aureus and THIRD LOADER. Recheck BCx on 10/16 negative. ID consulted. [...] on apixaban. Charges/Coding Visit Charges Inpatient E&M: 56836 Subs Hosp L2 10/18/24 1220 Cosigner Signature (if applicable): CC: ~ Signed [facility]04-08-2025 Progress note Author Vivek Gates [facility] Note Date/Time October 17, 2024 2:58 pm [facility] Medical Records Department [address] [place] [address] Progress Note - Hospitalist 10/17/24 0724 MR#: [id number] Acct: [id number] Name: JADON ALVAREZ Rep #:[id number] 4 : 1955 69 From: Vivek Gates DO PCP: Kathleen Herzog MD Status:ADM IN Location: [place] [address] Reason for Visit Reason for Visit: Diagnoses [...] % (Auto) 48.4, Lymph % (Auto) 31.1, Canadian % (Auto) 16.1 H, Eos % (Auto) [...] positive on 10/14 with S. aureus and THIRD LOADER. Recheck BCx. ID consulted. TTE no vegatation, [...] on apixaban. Charges/Coding Visit Charges Inpatient E&M: 50555 Subs Hosp L1 10/17/24 1156 <Electronically signed by Vivek Gates DO> Cosigner Signature (if applicable): CC: ~ Signed ADDENDUM by Dr. Vivek Gates DO on 10/17/24 at 1458 Addendum pt reluctantly agreeing to FLORENCE. Will order. 10/17/24 1458<Electronically signed by Vivek Gates DO> Cosigner Signature (if applicable): cc: ~* Signed [facility] Work Phone: [phone]) 511-676604-08-2025 Progress note [facility] Medical Records Department [address] [facility] [place] [address] Progress Note - Hospitalist 10/17/24 0724 MR#: [id number] Acct: [id number] Name: JADON ALVAREZ Rep #:[id number] 4 : 1955 69 From: Vivek Gates DO PCP: Kathleen Herzog MD Status:ADM IN Location: [place] [address] Reason for Visit Reason for Visit: Diagnoses [...] % (Auto) 48.4, Lymph % (Auto) 31.1, Canadian % (Auto) 16.1 H, Eos % (Auto) [...] positive on 10/14 with S. aureus and THIRD LOADER. Recheck BCx. ID consulted. TTE no vegatation, [...] on apixaban. Charges/Coding Visit Charges Inpatient E&M: 82224 Subs Hosp L1 10/17/24 1156 Cosigner Signature (if applicable): CC: ~ Signed ADDENDUM by Dr. Vivek Gates DO on 10/17/24 at 1458 Addendum pt reluctantly agreeing to FLORENCE. Will order. 10/17/24 1458 Cosigner Signature (if applicable): cc: ~* Signed [facility]04-08-2025 Progress note Author Channing Barnard [facility] Note Date/Time October 17, 2024 9:58 am [facility] Medical Records Department [address] [place] [address] Progress Note - Infect Disease 10/17/24 0956 MR#: [id number] Acct: [id number] Name: JADON ALVAREZ Rep #:[id number] 1 : 1955 69 From: Channing garcia MD PCP: Kathleen Herzog MD Status:ADM IN Location: [place]3 KF199-7 Physical Exam Narrative Feeling ok, no fever, [...] (3) UTI (urinary tract infection): (4) Sepsis: 10/17/2458 <Electronically signed by Channing Barnard MD> Cosigner Signature (if applicable): CC: ~ Signed [facility] Work Phone: [phone]) 560-715504-08-2025 Progress note [facility] Medical Records Department [address] [place] [address] Progress Note - Infect Disease 10/17/2456 MR#: [id number] Acct: [id number] Name: JADON ALVAREZ Rep #:[id number] 1 : 1955 69 From: Channing garcia MD PCP: Kathleen Herzog MD Status:ADM IN [facility] Physical Exam Narrative Feeling ok, no fever, [...] veg. Repeat bcx pending. On vanc, ceftriaxone. VLAENTIN improved, fever improved. Wound cx with MRSA and CoNS. Recommend FLORENCE; if he refuses, plan would be for 6 weeks iv abxat discharge. Will follow (2) Cellulitis of right lower limb: (3) UTI (urinary tract infection): (4) Sepsis: 10/17/24 0958 Cosigner Signature (if applicable): CC: ~ Signed [facility]04-08-2025 Progress note Author Vivek Gates [facility] Note Date/Time October 17, 2024 7:23 am [facility] Medical Records Department [address] [place] [address] Progress Note - Hospitalist 10/16/24800 MR#: [id number] Acct: [id number] Name: JADON ALVAREZ Rep #:[id number] 9 : 1955 69 From: Vivek Gates DO PCP: Kathleen Herzog MD Status:ADM IN Location: [facility] WR309-7 Reason for Visit Reason for Visit: Diagnoses [...] % (Auto) 47.3, Lymph % (Auto) 32.7, Canadian % (Auto) 13.3 H, Eos % (Auto) [...] on 10/10 (1 of 2). Negative on 4/4. 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 aureus and THIRD LOADER. Recheck BCx. ID consulted. FLORENCE no vegatation. on vancomycin (2) Non-pressure chronic ulcer of 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: PLAN: debrided by podiatry on 10/15 PLAN: Plan Chronic conditions: * Left renal mass: follow up with GI * HTN: amlodipine * HLP: statin * DM2: glargine. add SSI. VTE prophylaxis: not indicated already on apixaban. Charges/Coding Visit Charges Inpatient E&M: 08622 Subs Hosp L1 10/17/24722 <Electronically signed by Vivek Gates DO> Cosigner Signature (if applicable): CC: ~ Signed [facility] Work Phone: [phone] Progress note [facility] Medical Records Department [address] [place] [address] Progress Note - Hospitalist 10/16/24 08 MR#: [id number] Acct: [id number] Name: JADON ALVAREZ Rep #:[id number] 9 : 1955 69 From: Vivek Gates DO PCP: Kathleen Herzog MD Status:ADM IN [facility] Reason for Visit Reason for Visit: Diagnoses [...] % (Auto) 47.3, Lymph % (Auto) 32.7, Canadian % (Auto) 13.3 H, Eos % (Auto) [...] positive on 10/14 with S. aureus and THIRD LOADER. Recheck BCx. ID consulted. FLORENCE no vegatation. on vancomycin (2) Non-pressure chronic ulcer of 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: PLAN: debrided by podiatry on 10/15 PLAN: Plan Chronic conditions: * Left renal mass: follow up with GI * HTN: amlodipine * HLP: statin * DM2: glargine. add SSI. VTE prophylaxis: not indicated already on apixaban. Charges/Coding Visit Charges Inpatient E&M: 37827 Subs Hosp L1 10/17/24 0723 Cosigner Signature (if applicable): CC: ~ Signed [facility]04-08-2025 Consult note Author Bartolo Washington [facility] Note Date/Time October 17, 2024 12:2 2am [facility] Medical Records Department [address] [facility] [place] [address] Pharmacokinetic/Renal -Consult 10/17/24 0021 MR#: [id number] Acct: [id number] Name: JADON ALVAREZ Rep #:[id number] 1 : 1955 69 From: Bartolo Bermudez od PCP: Kathleen Herzog MD Status:ADM IN Location: [place] 904466-1 Consult Antibiotic Management Pharmacy has been consulted [...] time ordered]: 10/18 @ 1200 10/17/24 0022 <Electronically signed by Bartolo smith> Date _ Bartolo Washington Cosigner Signature (if applicable): Date CC: ~ Signed [facility] Work Phone: [phone] 613-517304-08-2025 Consult note [facility] Medical Records Department [address] [place] [address] Pharmacokinetic/Renal -Consult 10/17/24 0021 MR#: [id number] Acct: [id number] Name: JADON ALVAREZ Rep #:[id number] 1 : 1955 69 From: Bartolo Bermudez od PCP: Kathleen Herzog MD Status:ADM IN Y Location: [place] [address] Consult Antibiotic Management Pharmacy has been consulted [...] Signature (if applicable): Date CC: ~ Signed [facility]04-07-2025 Consult note [facility] Note Date/Time October 16, 2024 2:57 pm [facility] Medical Records Department [address] [place] [address] Consultation - Infectious Dx 10/16/24 1452 MR#: [id number] Acct: [id number] Name: JADON ALVAREZ Rep #:[id number] 4 : 1955 69 From: Channing garcia MD PCP: Kathleen Herzog MD Status:ADM IN Location: [facility] NE476-5 Assessment & Plan Assessment/Plan (1) Bacteremia: PLAN: [...] and neg except as noted above. [facility] Medical History MRSA (methicillin resistant staph [...] % (Auto) 47.3, Lymph % (Auto) 32.7, Canadian % (Auto) 13.3 H, Eos % (Auto) [...] Preliminary No growth in 48 hours. 10/16/24 1427 <Electronically signed by Channing Barnard MD> Cosigner Signature (if applicable): CC: Kathleen Herzog MD~ Signed [facility] Work Phone: [phone] 888-152904-07-2025 Discharge summary Author Shayna Vanceehne [facility] Note Date/Time October 16, 2024 2:03 pm [facility] Medical Records Department [address] [place] [address] Emergency Department Summary 10/13/24 MR#: [id number] Acct: [id number] Name: JADON ALVAREZ Rep #:[id number] 8 : 1955 69 From: Shayna Otero PCP: Kathleen Herzog MD Status:ADM IN Location: [place] [address] HPI History of Present Illness Chief Complaint: General Illness Informant: patient, EMS and SNF Narrative Narrative: 69-year-old male presenting to the emergency room. Patient is from long-term facility. For the first 5 minutes of [...] had a heart murmur at that time. [facility] Medical History MRSA (methicillin resistant staph aureus) [...] (Auto) 55.3 Lymph % (Auto) 17.7 L Canadian % (Auto) 22.0 H Eos % (Auto) [...] layer exposed Disposition Disposition: Acute Care Hospital [facility] What to do if you have Problems For any increased pain, shortness of breath, bleeding, nausea or vomiting, chestpain, or any unexpected problems, contact your Primary Care Provider. Call [facility] ([phone]) or report to the closest Emergency Room. Call 911 if necessary. 10/16/24 1403 <Electronically signed by Shayna Martinez DO> Cosigner Signature (if applicable): CC: Kathleen Herzog MD ~ Signed [facility] Work Phone: [phone] 617-246804-07-2025 Consult note [facility] Medical Records Department [address] [place] [address] Consultation - Infectious Dx 10/16/24 1452 MR#: [id number] Acct: [id number] Name: JADON ALVAREZ Rep #:[id number] 4 : 1955 69 From: Channing garcia MD PCP: Kathleen Herzog MD Status:ADM IN Location: [place] [address] Assessment & Plan Assessment/Plan (1) Bacteremia: PLAN: [...] and neg except as noted above. [facility] Medical History MRSA (methicillin resistant staph [...] mg tablet 6 mg PO QHS INSOMNIA 04/18/2 4 Unknown History tamsulosin 0.4 mg capsule [...] % (Auto) 47.3, Lymph % (Auto) 32.7, Canadian % (Auto) 13.3 H, Eos % (Auto) [...] (if applicable): CC: Kathleen Herzog MD~ Signed [facility]04-07-2025 Discharge summary [facility] Medical Records Department [address] [place] [address] Emergency Department Summary 10/13/24 MR#: [id number] Acct: [id number] Name: JADON ALVAREZ Rep #:[id number] 8 : 1955 69 From: Shayna Otero PCP: Kathleen Herzog MD Status:ADM IN [facility] HPI History of Present Illness Chief Complaint: General Illness Informant: patient, EMS and SNF Narrative Narrative: 69-year-old male presenting to the emergency room. Patient is from long-term facility. For the first 5 minutes of [...] hehad a heart murmur at that time. [facility] Medical History MRSA (methicillin resistant staph aureus) [...] (Auto) 55.3 Lymph % (Auto) 17.7 L Canadian % (Auto) 22.0 H Eos % (Auto) [...] layer exposed Disposition Disposition: Acute Care Hospital [facility] What to do if you have Problems For any increased pain, shortness of breath, bleeding, nausea or vomiting, chestpain, or any unexpected problems, contact your Primary Care Provider. Call [facility] ([phone]) or report tothe closest Emergency Room. Call 911 if necessary. 10/16/24 1403 Cosigner Signature (if applicable): CC: Kathleen Herzog MD ~ Signed [facility]04-07-2025 Progress note Author Shayna Montoya [facility] Note Date/Time October 16, 2024 10:3 1am [facility] Medical Records Department [address] [place] [address] Progress Note 10/16/24 1028 MR#: [id number] Acct: [id number] Name: JADON ALVAREZ Rep #:[id number] 2 : 1955 69 From: Shayna Montoya M PCP: Kathleen Herzog MD Status:ADM IN Location: [place] 904466-1 Subjective Subjective No changes overnight Objective Data [...] % (Auto) 47.3, Lymph % (Auto) 32.7, Canadian % (Auto) 13.3 H, Eos % (Auto) [...] Cosigner Signature (if applicable): CC: ~ Signed [facility] Work Phone: [phone]) 542-506804-07-2025 Progress note [facility] Medical Records Department [address] [place] [address] Progress Note 10/16/24 1028 MR#: [id number] Acct: [id number] Name: JADON ALVAREZ Rep #:[id number] 2 : 1955 69 From: Shayna Montoya DPM PCP: Kathleen Herzog MD Status:ADM IN Location: [facility] MW898-2 Subjective Subjective No changes overnight Objective Data [...] Intake and Output for Last 24 Hours 04/05/25 04/06/25 04/07/25 23:59 23:59 23:59 Intake Total 770 / [...] % (Auto) 47.3, Lymph % (Auto) 32.7, Canadian % (Auto) 13.3 H, Eos % (Auto) [...] Cosigner Signature (if applicable): CC: ~ Signed [facility]04-07-2025 Progress note Author Sommer Xie [facility] Note Date/Time October 16, 2024 6:47 am [facility] Medical Records Department [address] [place] [address] Progress Note - Hospitalist 10/16/24 0646 MR#: [id number] Acct: [id number] Name: JADON ALVAREZ Rep #:[id number] 2 : 1955 69 From: Sommer Xie MD PCP: Kathleen Herzog MD Status:ADM IN Location: MS3 GD038-8 Hospitalist Note Patient reporting to RN that is is fatigued, tired of dealing with his health care, refused medications this am, no specific plan, case management consulted and will be made aware. 10/16/24 0647 <Electronically signed by Sommer Xie MD> Cosigner Signature (if applicable): CC: ~ Signed [facility] Work Phone: [phone]) [phone] Progress note [facility] Medical Records Department [address] [place] [address] Progress Note - Hospitalist 10/16/24 0646 MR#: [id number] Acct: [id number] Name: JADON ALVAREZ Rep #:[id number] 2 : 1955 69 From: Sommer Xie MD PCP: Kathleen Herzog MD Status:ADM IN Location: [place] [address] Hospitalist Note Patient reporting to RN that is is fatigued, tired of dealing with his health care, refused medications this am, no specific plan, case management consulted and will be made aware. 10/16/24646 Cosigner Signature (if applicable): CC: ~ Signed [facility]04-07-2025 Consult note Author Bartolo Padmini [facility] Note Date/Time October 16, 2024 1:32 am [facility] Medical Records Department [address] [facility] [place] [address] Pharmacokinetic/Renal -Consult 10/16/24 0131 MR#: [id number] Acct: [id number] Name: JADON ALVAREZ Rep #:[id number] 6 : 1955 69 From: Bartolo Bermudez od PCP: Kathleen Herzog MD Status:ADM IN Y Location: [place] [address] Consult Antibiotic Management Pharmacy has been consulted [...] time ordered]: 10/16 @ 1100 10/16/24 0132 <Electronically signed by Bartolo smith> Date _ Bartolo Shay Signature (if applicable): Date CC: ~ Signed [facility] Work Phone: 1(311) 109-208704-07-2025 Consult note [facility] Medical Records Department [address] [place] [address] Pharmacokinetic/Renal -Consult 10/16/24 0131 MR#: [id number] Acct: [id number] Name: JADON ALVAREZ Rep #:[id number] 6 : 1955 69 From: Bartolo Bermudez od PCP: Kathleen Herzog MD Status:ADM IN Location: [place] [address] Consult Antibiotic Management Pharmacy has been consulted [...] 1100 10/16/24 0132 lood> Date _ Bartolo Washington Cosigner Signature (if applicable): Date CC: ~ Signed [facility]04-06-2025 Progress note Author Colby May [facility] Note Date/Time October 15, 2024 12:4 3pm [facility] Medical Records Department [address] [place] [address] Progress Note - Hospitalist 10/14/24 0738 MR#: [id number] Acct: [id number] Name: JADON ALVAREZ Kenia Rep #:[id number] 0 : 1955 69 From: Colby Iniguez PCP: Kathleen Herzog MD Status:ADM IN Location: [place] [address] Reason for Visit Reason for Visit: Diagnoses [...] / 530 Output Total 850 / 2050 2000 / 2000 Balance 222.25 / -977.75 -1470 / -1470 [...] % (Auto) 55.3, Lymph % (Auto) 17.7 L,Canadian % (Auto) 22.0 H, Eos % (Auto) [...] (Auto) 61.9, Lymph % (Auto) 15.6 L, Canadian % (Auto) 15.1 H, Eos % (Auto) [...] Echo is done but not report * Restrooms Or Lounges Maid consulted for right lateral leg which I [...] with intubation Charges/Coding Visit Charges Inpatient E&M: 34483 Subs Hosp L2 10/14/24 1331 <Electronically signed by Colby Mya MD> Cosigner Signature (if applicable): CC: ~ Signed ADDENDUM by Dr. Colby May MD on 10/15/24 at 1243 Addendum Correction: Heart exam: Systolic ejection murmur right second ICS, aortic stenosis 10/15/24 1243<Electronically signed by Colby May MD> Cosigner Signature (if applicable): cc: ~* Signed [facility] Work Phone: 1(197) 227-630004-06-2025 Progress note Author Colby May [facility] Note Date/Time October 15, 2024 12:4 2pm [facility] Medical Records Department [address] [place] [address] Progress Note - Hospitalist 10/15/24901 MR#: [id number] Acct: [id number] Name: JADON ALVAREZ Rep #:[id number] 9 : 1955 69 From: Colby Iniguez PCP: Kathleen Herzog MD Status:ADM IN Location: [place] [address]-1 Reason for Visit Reason for Visit: Diagnoses [...] (Auto) 55.2, Lymph % (Auto) 17.7 L, Canadian %(Auto) 20.7 H, Eos % (Auto) 2.7, [...] % (Auto) 51.1, Lymph % (Auto) 25.3, Canadian % (Auto) 15.1 H, Eos % (Auto) [...] Echo is done but not report * Restrooms Or Lounges Maid consulted for right lateral leg which I believe may be the source for MRSA bacteremia 10/15: Discussed with the tin container straightener. Echo does not show any vegetation. EF 70%. 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 Continue IV antibiotic. Discussed with gasoline truck operator Dr. Montoya and wounds showsgranulation tissue with [...] valve insufficiency. Charges/Coding Visit Charges Inpatient E&M: 72874 Subs Hosp L2 10/15/24 1242 <Electronically signed by Colby May MD> Cosigner Signature (if applicable): CC: ~ Signed [facility] Work Phone: 1(409) 549-833004-06-2025 Progress note [facility] Medical Records Department [address] [place] [address] Progress Note - Hospitalist 10/14/24 0738 MR#: [id number] Acct: [id number] Name: JADON ALVAREZ Rep #:[id number] 0 : 1955 69 From: Colby Iniguez PCP: Kathleen Herzog MD Status:ADM IN Location: [place] [address]-1 Reason for Visit Reason for Visit: Diagnoses [...] 1072.25 530 / 530 Output Total / 2051999 Balance 222.25 / -977.75 -1470 / -1470 [...] Neut% (Auto) 55.3, Lymph % (Auto) 17.7 L,Canadian % (Auto) 22.0 H, Eos % (Auto) [...] (Auto) 61.9, Lymph % (Auto) 15.6 L, Canadian % (Auto) 15.1 H, Eos % (Auto) [...] Echo is done but not report * Restrooms Or Lounges Maid consulted for right lateral leg which I [...] with intubation Charges/Coding Visit Charges Inpatient E&M: 27945 Subs Hosp L2 10/14/24 1331 Cosigner Signature (if applicable): CC: ~ Signed ADDENDUM by Dr. Colby May MD on 10/15/24 at 1243 Addendum Correction: Heart exam: Systolic ejection murmur right second ICS, aortic stenosis 10/15/24 1243 Cosigner Signature (if applicable): cc: ~* Signed [facility]04-06-2025 Progress note [facility] Medical Records Department [address] [place] [address] Progress Note - Hospitalist 10/15/24 0902 MR#: [id number] Acct: [id number] Name: JADON ALVAREZ Rep #:[id number] 9 : 1955 69 From: Colby Iniguez PCP: aKthleen Herzog MD Status:ADM IN Location: [place] [address] Reason for Visit Reason for Visit: Diagnoses [...] (Auto) 55.2, Lymph % (Auto) 17.7 L, Canadian %(Auto) 20.7 H, Eos % (Auto) 2.7, [...] % (Auto) 51.1, Lymph % (Auto) 25.3, Canadian % (Auto) 15.1 H, Eos % (Auto) [...] Echo is done but not report * Restrooms Or Lounges Maid consulted for right lateral leg which I believe may be the source for MRSA bacteremia 10/15: Discussed with the tin container straightener. Echo does not show any vegetation. EF 70%. 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 Continue IV antibiotic. Discussed with gasoline truck operator Dr. Montoya and wounds showsgranulation tissue with [...] valve insufficiency. Charges/Coding Visit Charges Inpatient E&M: 14167 Subs Hosp L2 10/15/24 1242 Cosigner Signature (if applicable): CC: ~ Signed [facility]04-06-2025 Consult note Author Shayna Montoya [facility] Note Date/Time October 15, 2024 9:43 am [facility] Medical Records Department [address] [place] [address] Consultation 10/15/24 0936 MR#: [id number] Acct: [id number] Name: JADON ALVAREZ Rep #:[id number] 2 : 1955 69 From: Shayna Montoya DPM PCP: Kathleen Herzog MD Status:ADM IN Location: [place] [address] Assessment & Plan Assessment/Plan (1) Blood bacterial [...] does have diffuse lower extremity edema bilaterally. [facility] Medical History MRSA (methicillin resistant staph [...] % (Auto) 51.1, Lymph % (Auto) 25.3, Canadian % (Auto) 15.1 H, Eos % (Auto) 4.0, Baso % (Auto) 0.5, Absolute Neuts (auto) 1.9 L, Absolute Lymphs (auto) 0.94, Nucleated RBC % 0.5, Platelet Estimate SLT DEC, Polychromasia 1+, Sodium 140, Potassium 3.9, [id number], Carbon Dioxide 25.0, Anion Gap 8, BUN [...] (if applicable): CC: Kathleen Herzog MD~ Signed [facility] Work Phone: 1(696) 475-724704-06-2025 Consult note [facility] Medical Records Department [address] [place] [address] Consultation 10/15/24 0936 MR#: [id number] Acct: [id number] Name: JADON ALVAREZ Rep #:[id number] 2 : 1955 69 From: Shayna Montoya DPM PCP: Kathleen Herzog MD Status:ADM IN [facility] Assessment & Plan Assessment/Plan (1) Blood bacterial [...] does have diffuselower extremity edema bilaterally. [facility] Medical History MRSA (methicillin resistant staph [...] % (Auto) 51.1, Lymph % (Auto) 25.3, Canadian % (Auto) 15.1 H, Eos % (Auto) 4.0, Baso % (Auto) 0.5, Absolute Neuts (auto) 1.9 L, Absolute Lymphs (auto) 0.94, Nucleated RBC % 0.5, Platelet Estimate SLT DEC, Polychromasia 1+, Sodium 140, Potassium 3.9, Hiadmavo929, Carbon Dioxide 25.0, Anion Gap 8, BUN [...] (if applicable): CC: Kathleen Herzog MD~ Signed [facility]04-06-[facility] Consult note Author Bartolo Washington [facility] Note Date/Time October 15, 2024 2:12 am [facility] Medical Records Department [address] [place] [address] Pharmacokinetic/Renal -Consult 10/15/24 0211 MR#: [id number] Acct: [id number] Name: JADON ALVAREZ Kenia Rep #:[id number] 9 : 1955 69 From: Bartolo Bermudez od PCP: Kathleen eHrzog MD Status:ADM IN Y Location: MS3 DG022-5 Consult Antibiotic Management Pharmacy has been consulted [...] time ordered]: 10/15 @ 2300 10/15/24 0212 <Electronically signed by Bartolo smith> Date _ Bartolo Washington Cosigner Signature (if applicable): Date CC: ~ Signed [facility] Work Phone: [phone]) 126-813404-06-2025 Consult note [facility] Medical Records Department [address] [place] [address] Pharmacokinetic/Renal -Consult 10/15/24 0211 MR#: [id number] Acct: [id number] Name: JADON ALVAREZ Rep #:[id number] 9 : 1955 69 From: Bartolo Bermudez od PCP: Kathleen Herzog MD Status:ADM IN Y Location: [place] [address] Consult Antibiotic Management Pharmacy has been consulted [...] 2300 10/15/24 0212 lood> Date _ Bartolo Hira Padmini Shay Signature (if applicable): Date CC: ~ Signed [facility]04-05-2025 Consult note Author Ignacia Martin [facility] Note Date/Time October 14, 2024 3:15 pm [facility] Medical Records Department [address] [facility] [place] [address] Pharmacokinetic/Renal -Consult 10/14/24 1438 MR#: [id number] Acct: [id number] Name: JADON ALVAREZ Rep #:[id number] 0 : 1955 69 From: Ignacia jim PCP: Kathleen Herzog MD Status:ADM IN [facility] Consult Antibiotic Management Pharmacy has been consulted [...] Date Colby May MD CC: ~ Signed [facility] Work Phone: 1(484) 769-885504-05-2025 Consult note [facility] Medical Records Department [address] [place] [address] Pharmacokinetic/Renal -Consult 10/14/24 1438 MR#: [id number] Acct: [id number] Name: JADON ALVAREZ Rep #:[id number] 0 : 1955 69 From: Ignacia jim PCP: Kathleen Herzog MD Status:ADM IN Y Location: SD3 ZQ151-4 Consult Antibiotic Management Pharmacy has been consulted [...] erg> Date _ Ignacia Martin 10/14/24 1515 > Laurita Signature (if applicable): Date Colby May MD CC: ~ Signed [facility]04-04-2025 History and physical note Author Monika [facility] Note Date/Time October 13, 2024 7:09 pm [facility] Medical Records Department [address] [place] [address] H&P Exam - Hospitalist 10/13/24 1346 MR#: [id number] Acct: [id number] Name: JADON ALVAREZ Rep #:[id number] 7 : 1955 69 From: Monika Garcias MD PCP: Kathleen Herzog MD Status:ADM IN Location: [facility] KK725-6 HPI - General General Date of Admission: [...] were BP of 136/71, temp of 98.7F, GA of 57 and RR of 18. He [...] to be managed for MRSA bacteremia. [facility] Medical History MRSA (methicillin resistant staph [...] % (Auto) 55.3, Lymph % (Auto) 17.7 L,Canadian % (Auto) 22.0 H, Eos % (Auto) [...] confirmed this. Charges/Coding Visit Charges Inpatient E&M: 15122 Init Hosp L2 10/13/241908 <Electronically signed by Monika Garcias MD> Cosigner Signature (if applicable): CC: Dr. Monika Garcias MD; Kathleen Herzog MD~ Signed [facility] Work Phone: 1([phone]) 429-278404-04-2025 History and physical note [facility] Medical Records Department [address] [place] [address] H&P Exam - Hospitalist 10/13/24 1346 MR#: [id number] Acct: [id number] Name: JADON ALVAREZ Rep #:[id number] 7 : 1955 69 From: Monika Garcias MD PCP: Kathleen Herzog MD Status:ADM IN [facility] HPI - General General Date of Admission: [...] were BP of 136/71, temp of 98.7F, GA of 57 and RR of 18. He [...] to be managed for MRSA bacteremia. [facility] Medical History MRSA (methicillin resistant staph [...] Neut% (Auto) 55.3, Lymph % (Auto) 17.7 L,Canadian % (Auto) 22.0 H, Eos % (Auto) [...] confirmed this. Charges/Coding Visit Charges Inpatient E&M: 76648 Init Hosp L2 10/13/24 1909 Cosigner Signature (if applicable): CC: Dr. Monika Garcias MD; Kathleen Herzog MD~ Signed [facility]04-04-2025 Consult note Author Mirela Gandara [facility] Note Date/Time October 13, 2024 3:43 pm [facility] Medical Records Department [address] [place] [address] Pharmacokinetic/Renal -Consult 10/13/24 1542 MR#: [id number] Acct: [id number] Name: JADON ALVAREZ Rep #:[id number] 7 : 1955 69 From: Mirela Gandara PCP: Kathleen Herzog MD Status:ADM IN Y [facility] Consult Antibiotic Management Pharmacy has been consulted [...] monitor and adjust dosing as required. 10/13/24 6539 <Electronically signed by Mirela Gandara > Date _ Mirela Gandara Cosigner Signature (if applicable): Date CC: ~ Signed [facility] Work Phone: [phone] 313-622904-04-2025 Consult note [facility] Medical Records Department [address] [place] [address] Pharmacokinetic/Renal -Consult 10/13/24 1542 MR#: [id number] Acct: [id number] Name: JADON ALVAREZ Rep #:[id number] 7 : 1955 69 From: Mirela Gandara PCP: Kathleen Herzog MD Status:ADM IN Y Location: [place] [address] Consult Antibiotic Management Pharmacy has been consulted [...] required. 10/13/24 1543 > Date _ Mirela Gandara Cosigner Signature (if applicable): Date CC: ~ Signed [facility]04-03-2025 Consult note [facility] Medical Records Department [address] [place] [address] Counseling Note - Pharmacy 10/12/24 1414 MR#: [id number] Acct: [id number] Name: JADON ALVAREZ Rep #:[id number] 5 : 1955 69 From: Mirela Gandara PCP: Kathleen Herzog MD Status:ADM IN Location: [place] [address] Pharmacy [place] Med Reconciliation Pharmacy Service has performed discharge medication reconciliation for this patient upon transfer to [facility]. The patient's discharge medication list was reviewed [...] 10/12/24 10/12/24 1415 > Date _ Mirela Regula Cosigner Signature (if applicable): Date CC: ~ Signed [facility]04-03-2025 Discharge summary [facility] Note Date/Time October 12, 2024 11:4 7am [facility] Medical Records Department [address] [place] [address] Discharge Summary 10/12/24 1140 MR#: [id number] Acct: [id number] Name: JADON ALVAREZ Rep #:[id number] 5 : 1955 69 From: Dl Neely MD PCP: Kathleen Herzog MD Status:ADM IN Location: [facility] KFK009- 1 Providers Date of Admission: 10/10/24 Date of Discharge: 10/12/24 Primary Care Physician: Dr. Kathleen Herzog MD Consultations 10/11/24 21:39 Consult: Onc/Wound/analog circuit designer Routine Comment: Reason for Consult:: R leg [...] tablet,delayed release 81 mg PO DAILY AFIB 09/06/19 amlodipine 5 mg tablet 5 mg PO [...] (Auto) 60.7, Lymph % (Auto) 18.1 L, Canadian % (Auto) 19.1 H, Eos % (Auto) [...] in before D/C Order can be placed): Alf Facility Charges/Coding Visit Charges Inpatient E&M: 27910 Disch Hosp >30min 10/12/24 1147 <Electronically signed by Dl Neely MD> Cosigner Signature (if applicable): CC: Dr. Dl Neely MD; Kathleen Herzog MD~ Signed [facility] Work Phone: 1(511) 974-705204-03-2025 Discharge summary Author Dl Neely [facility] Note Date/Time October 12, 2024 11:4 0am [facility] Medical Records Department [address] [place] [address] Transfer to [facility] MR#: [id number] Acct: [id number] Name: JADON ALVAREZ Rep #:[id number] 6 : 1955 69 From: Dl Neely [...] PRIOR TO HIS/HER TRANSFER TO THE ECF. 10/12/24 1140<Electronically signed by Dl Neely MD> [...] in before D/C Order can be placed): Alf Facility 10/12/24 1140 <Electronically signed by Dl Neely MD> Cosigner Signature (if applicable): CC: Dr. Monika Garcias MD; Kathleen Herzog MD ~ [facility] Work Phone: [phone] Discharge summary [facility] Medical Records Department [address] [place] [address] Discharge Summary 10/12/24 1140 MR#: [id number] Acct: [id number] Name: JADON ALVAREZ Rep #:[id number] 5 : 1955 69 From: Dl Neely MD PCP: Kathleen Herzog MD Status:ADM [facility] Prov[facility] Date of Admission: 10/10/24 Date of Discharge: 10/12/24 Primary Care Physician: Dr. Kathleen Herzog MD Consultations 10/11/24 21:39 Consult: Onc/Wound/analog circuit designer Routine Comment: Reason for Consult:: R leg [...] (Auto) 60.7, Lymph % (Auto) 18.1 L, Canadian % (Auto) 19.1 H, Eos % (Auto) [...] in before D/C Order can be placed): Alf Facility Charges/Coding Visit Charges Inpatient E&M: 18238 Disch Hosp >30min 10/12/24 1147 Cosigner Signature (if applicable): CC: Dr. Dl Neely MD; Kathleen Herzog MD~ Signed [facility]04-03-2025 Discharge summary [facility] Medical Records Department [address] [place] [address] Transfer to [facility] MR#: [id number] Acct: [id number] Name: JADON ALVAREZ Rep #:[id number] 6 : 1955 69 From: Dl Neely [...] PRIOR TO HIS/HER TRANSFER TO THE ECF. 10/12/24 1140 Diet Diet Order/Speech Therapy: 10/10/24 [...] in before D/C Order can be placed): Alf Facility 10/12/24 1140 Cosigner Signature (if applicable): CC: Dr. Monika Garcias MD; Kathleen Herzog MD ~ [facility]04-03-2025 [facility]04-02-2025 Progress note Author Dl eNely [facility] Note Date/Time October 11, 2024 11:0 1am [facility] Medical Records Department [address] [place] [address] Progress Note - Hospitalist 10/11/24 1047 MR#: [id number] Acct: [id number] Name: JADON ALVAREZ Rep #:[id number] 1 : 1955 69 From: Dl Neely MD PCP: Kathleen Herzog MD Status:ADM IN Location: [place] [address]- Reason for Visit Reason for Visit: Diagnoses [...] 87.7 H, Lymph % (Auto) 6.7 L, Canadian % (Auto) 3.2, Eos % (Auto) 0.0, [...] (Auto) 74.0 H, Lymph % (Auto) 13.0L, Canadian % (Auto) 12.0 H, Eos % (Auto) [...] 17:00 IMPRESSION: No Acute Findings. [facility]/Pelvis CT 10/10/24 17:35 [...] etiology such best aspiration pneumonia. Reading Location: [facility] Physical Exam Narrative GENERAL: Significantly flat affect [...] documentation, 52minutes Charges/Coding Visit Charges Inpatient E&M: 56726 Subs Hosp L3 10/11/24 1101 <Electronically signed by Dl Neely MD> Cosigner Signature (if applicable): CC: ~ Signed [facility] Work Phone: 1(116) 178-586104-02-2025 Progress note [facility] Medical Records Department [address] [place] [address] Progress Note - Hospitalist 10/11/24 1047 MR#: [id number] Acct: [id number] Name: JADON ALVAREZ Rep #:[id number] 1 : 1955 69 From: Dl Neely MD PCP: Kathleen Herzog MD Status:ADM IN Location: [place] [address] Reason for Visit Reason for Visit: Diagnoses [...] 87.7 H, Lymph % (Auto) 6.7 L, Canadian % (Auto) 3.2, Eos % (Auto) 0.0, [...] (Auto) 74.0 H, Lymph % (Auto) 13.0L, Canadian % (Auto) 12.0 H, Eos % (Auto) [...] 17:00 IMPRESSION: No Acute Findings. [facility] Abdomen/Pelvis CT 10/10/24 17:35 IMPRESSION: 1. No [...] etiology such best aspiration pneumonia. Reading Location: [facility] Physical Exam Narrative GENERAL: Significantly flat affect [...] documentation, 52minutes Charges/Coding Visit Charges Inpatient E&M: 64623 Subs Hosp L3 10/11/24 1101 Cosigner Signature (if applicable): CC: ~ Signed [facility]04-02-2025 Discharge summary Author Kurtis Monteiro [facility] Note Date/Time October 10, 2024 10:3 3pm [facility] Medical Records Department [address] [place] [address] Emergency Department Summary 10/10/24 MR#: [id number] Acct: [id number] Name: JADON ALVAREZ Rep #:[id number] 1 : 1955 69 From: Kurtis Monteiro MD PCP: Kathleen Herzog MD Status:ADM IN Location: [place] [address] HPI History of Present Illness Chief Complaint: Complaint [...] He also had elevated temperature as well. [facility] Medical History MRSA (methicillin resistant staph aureus) [...] platelet count low at 59. [facility], he has been thrombocytopenic at [...] states he prefers to return to the long-term facility, given his lactic acidosis, and pancytopenia, [...] 87.7 H Lymph % (Auto) 6.7 L Canadian % (Auto) 3.2 Eos % (Auto) 0.0 [...] Clarity Cloudy Urine pH 9.0 Ur Specific [place] 1.015 Urine Protein 500 H Urine Glucose [...] 17:00 IMPRESSION: No Acute Findings. Reading Location: [facility] Abdomen/Pelvis CT 10/10/24 17:35 IMPRESSION: 1. No [...] etiology such best aspiration pneumonia. Reading Location: [facility] Discharge Plan Dx/Rx/DC Orders Clinical Impression: Pancytopenia, Sepsis, UTI (urinary tract infection), Martines catheter problem Disposition Disposition: Acute Care Hospital [facility] Discharge Date/Time: 10/10/24 18:20 What to do if you have Problems For any increased pain, shortness of breath, bleeding, nausea or vomiting, chestpain, or any unexpected problems, contact your Primary Care Provider. Call [facility] ([phone]) or report to the closest Emergency Room. Call 911 if necessary. 10/10/242232 <Electronically signed by Kurtis Monteiro MD> Cosigner Signature (if applicable): CC: Kathleen Herzog MD ~ Signed [facility] Work Phone: 1(323) 977-780704-01-2025 Discharge summary [facility] Medical Records Department [address] [place] [address] Emergency Department Summary 10/10/24 MR#: [id number] Acct: [id number] Name: JADON ALVAREZ Rep #:[id number] 1 : 1955 69 From: Kurtis Monteiro MD PCP: Kathleen Herzog MD Status:ADM IN Location: [address] History of Present Illness Chief Complaint: [...] He also had elevated temperature as well. [facility] Medical History MRSA (methicillin resistant staph aureus) [...] platelet count low at 59. When compared [facility], he has been thrombocytopenic at [...] states he prefers to return to the long-term facility, given his lactic acidosis, and pancytopenia, [...] 87.7 H Lymph % (Auto) 6.7 L Canadian % (Auto) 3.2 Eos % (Auto) 0.0 [...] Clarity Cloudy Urine pH 9.0 Ur Specific [place] 1.015 Urine Protein 500 H Urine Glucose [...] 17:00 IMPRESSION: No Acute Findings. Reading Location: [facility] Abdomen/Pelvis CT 10/10/24 17:35 IMPRESSION: 1. No [...] etiology such best aspiration pneumonia. Reading Location: [facility] Discharge Plan Dx/Rx/DC Orders Clinical Impression: Pancytopenia, Sepsis, UTI (urinary tract infection), Martines catheter problem Disposition Disposition: Acute Care Hospital [facility] Discharge Date/Time: 10/10/24 18:20 What to do if you have Problems For any increased pain, shortness of breath, bleeding, nausea or vomiting, chestpain, or any unexpected problems, contact your Primary Care Provider. Call [facility] ([phone]) or report tothe closest Emergency Room. Call 911 if necessary. 10/10/243 Cosigner Signature (if applicable): CC: Kathleen Herzog MD ~ Signed [facility]04-01-2025 History and physical note Author [facility] Note Date/Time October 10, 2024 7:50 pm [facility] Medical Records Department [address] [place] [address] H&P Exam - Hospitalist 10/10/24 1730 MR#: [id number] Acct: [id number] Name: JADON ALVAREZ Kenia Rep #:[id number] 2 : 1955 69 From: Monika Garcias MD PCP: Kathleen Herzog MD Status:ADM IN Location: [facility] CEU943- 1 HPI - General General Date of [...] in the ED were BP of 119/70, GA of 95, RR of 28 and temp [...] adrenal nodule, concerning for renal neoplasm. [facility] Medical History MRSA (methicillin resistant staph [...] 87.7 H, Lymph % (Auto) 6.7 L, Canadian % (Auto) 3.2, Eos % (Auto) 0.0, [...] confirmed this. Charges/Coding Visit Charges Inpatient E&M: 85907 Init Hosp L3 10/10/241925 <Electronically signed by [...] Garcias MD; Kathleen Herzog MD ~* Signed [facility] Work Phone: 1(386) 184-502104-01-2025 History and physical note [facility] Medical Records Department [address] [place] [address] H&P Exam - Hospitalist 10/10/24 1730 MR#: [id number] Acct: [id number] Name: JADON ALVAREZ Rep #:[id number] 2 : 1955 69 From: Monika Garcias MD PCP: Kathleen Herzog MD Status:ADM IN Location: [facility] QGK688- 1 HPI - General General Date of [...] in the ED were BP of 119/70, GA of 95, RR of 28 and temp [...] adrenal nodule, concerning for renal neoplasm. [facility] Medical History MRSA (methicillin resistant staph [...] Reaction Status Date / Time ibuprofen (From [employer]) Allergy Unknown Verified 10/10/24 15:27 Family History [...] 87.7 H, Lymph % (Auto) 6.7 L, Canadian % (Auto) 3.2, Eos % (Auto) 0.0, [...] confirmed this. 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 Bladder: Decompressed by indwelling Mratines catheter. A portion of the urinary bladder [...] etiology such best aspiration pneumonia. Reading Location: [facility] CC: Dr. Kurtis Monteiro MD; Kathleen Herzog MD ~ Compilation Clerk: Signed [facility]04-01-2025 Radiology Diagnostic study note [facility] Imaging Services [address] [place] [address] Chest 1 View (Portable) MR#: [id number] Acct: [id number] Name: JADON ALVAREZ Rep #: [id number] 5 : 1955 M 69 From: Champ Ray DO PCP: Kathleen Herzog MD Status: REG ER Study:Chest 1 View (Portable) Date of Exam: 10/10/24 Exam# [id number] Ordering Dr: Kurtis Monteiro MD PROCEDURE: CHEST 1 VIEW (PORTABLE) 10/10/2024 REASON FOR EXAM: FEVER TECHNIQUE: Frontal view of the chest. COMPARISON: Chest radiograph dated 09/16/2024 FINDINGS: Hardware: Sternotomy wires are present. Heart: The heart size is normal. Lungs: The lungs are clear. Bones: Degenerative changes are identified within the thoracic spine. Other: RAD/Chest 1 View (Portable) IMPRESSION: No Acute Findings. Reading Location: [facility] CC: Dr. 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 Patient was complaining about getting extra [...] Date Recorded By Document 09/13/24 08:39 ML [id number] 09/13/24 08:43 ML Document 09/27/24 08:56 CP [id number] 09/27/24 09:11 CP 09/13/24 09/27/24 08:39 08:56 - Today's Visit Information Type of service Follow-up Visit Follow-up Visit (Physician/ENDOSCOPY TECH (Physician/ENDOSCOPY TECH ) ) Arrival Mode Ambulatory Ambulatory Transfer [...] Date Recorded By Document 09/13/24 08:39 ML [id number] 09/13/24 08:43 ML Document 09/27/24 08:56 CP [id number] 09/27/24 09:11 CP 09/13/24 09/27/24 08:39 08:56 [...] Amt Medium (34-66%) Large (67-100%) -Granulation Quality [place] Red -Slough/Fibrin Yes -Necrosis Amt Medium (34-66%) [...] Calf (cm) 35 Left Ankle (cm) 25.5 CODY - Nurse 2 - General Ulcer CM Notes Start: 09/13/24 08:39 Freq: Status: Active Protocol: Activity Type Activity Date Activity User E-sign Co-sign Detail Recorded Client Recorded Date Recorded By Document 09/13/24 08:56 [id number] 09/13/24 09:00 Document 09/27/24 09:34 [id number] 09/27/24 09:36 09/13/24 09/27/24 08:56 09:34 Wound [...] Numeric Is Patient Pain Free? Yes Yes CODY - Nurse 3 - General Ulcer D/C NN Start: 09/13/24 08:39 Freq: Status: Active Protocol: Activity Type Activity Date Activity User E-sign Co-sign Detail Recorded Client Recorded Date Recorded By Document 09/13/24 09:20 NC [id number] 09/13/24 09:21 NC Document 09/27/24 09:50 [id number] 09/27/24 09:50 09/13/24 09/27/24 09:20 09:50 Wound Care Center Nurse 3 #5 RT LAT LE POST-OP -Ulcer Cleansing Not Cleansed -Foul Odor after Cleansing No -Primary Dressing Applied Promogran Promogran Pankaj Matter Pankaj Matter -Other Dressing abd -Primary Dressing Covered/Secured with Dry Gauze,Dry Dry Gauze & Gauze & Roll Roll Gauze, Gauze,Secured Secured with with Tape Tape -Promogran Pankaj Matter 2 1 LLE -Lotion applied to leg before No compression wrap -Compression Wrap Brittany Wrap Brittany Wrap RLE -Lotion applied to leg before No compression wrap -Compression Wrap Brittany Wrap Brittany Wrap Pain Scale: 0-10 Numeric Is Patient Pain Free? Yes Yes WC - Visit Discharge Discharge Condition Stable Stable [...] extremities were cleaned and patted dry. Moist Pankaj, dry sterile dressing andcompression wrap was donned to the right lower extremity. Compression wrap was donned to left lower extremity. Patient will continue dressing changes as written. Educated patient to continue ambulation as well as strict blood sugar control. Follow-up at the wound care center with Dr. Shannon in 2 week. 09/27/24 1055 <Electronically signed by Aaron Shannon DPJuan Daniel> Cosigner Signature (if applicable): CC: ~ Signed [facility] Work Phone: 1(930) 726-146103-19-2025 Evaluation note* Diagnosis Onset Date Resolution Status [...] 05, 2025 2:41pm Altered mental status acute Humberto e 2024 2:41pm Urinary tract infection acute J une 2024 2:41pm [facility] Work Phone: 1(622) 195-749703-19-2025 Progress note 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 Patient was complaining about getting extra [...] Date Recorded By Document 09/13/24 08:39 ML [id number] 09/13/24 08:43 ML Document 09/27/24 08:56 CP [id number] 09/27/24 09:11 CP 09/13/24 09/27/24 08:39 08:56 WC - Today's Visit Information Type of service Follow-up Visit Follow-up Visit (Physician/ENDOSCOPY TECH (Physician/ENDOSCOPY TECH ) ) Arrival Mode Ambulatory Ambulatory Transfer [...] Date Recorded By Document 09/13/24 08:39 ML [id number] 09/13/24 08:43 ML Document 09/27/24 08:56 CP [id number] 09/27/24 09:11 CP 09/13/24 09/27/24 08:39 08:56 [...] Amt Medium (34-66%) Large (67-100%) -Granulation Quality [place] Red -Slough/Fibrin Yes -Necrosis Amt Medium (34-66%) [...] Date Recorded By Document 09/13/24 08:56 JF [id number] 09/13/24 09:00 Document 09/27/24 09:34 [id number] 09/27/24 09:36 09/13/24 09/27/24 08:56 09:34 Wound [...] Pain Free? Yes Yes WC - Nurse 3 - General Ulcer D/C NN Start: 09/13/24 08:39 Freq: Status: Active Protocol: Activity Type Activity Date Activity User E-sign Co-sign Detail Recorded Client Recorded Date Recorded By Document 09/13/24 09:20 MT [id number] 09/13/24 09:21 MT Document 09/27/24 09:50 [id number] 09/27/24 09:50 09/13/24 09/27/24 09:20 09:50 Wound Care Center Nurse 3 #5 RT LAT LE POST-OP -Ulcer Cleansing Not Cleansed -Foul Odor after Cleansing No -Primary Dressing Applied Promogran Promogran Pankaj Matter Pankaj Matter -Other Dressing abd -Primary Dressing Covered/Secured with Dry Gauze,Dry Dry Gauze & Gauze & Roll Roll Gauze, Gauze,Secured Secured with with Tape Tape -Promogran Pankaj Matter 2 1 LLE -Lotion applied to leg before No compression wrap -Compression Wrap Brittany Wrap Brittany Wrap RLE -Lotion applied to leg before No compression wrap -Compression Wrap Brittany Wrap Brittany Wrap Pain Scale: 0-10 Numeric Is Patient Pain Free? Yes Yes WC - Visit Discharge Discharge Condition Stable Stable [...] extremities were cleaned and patted dry. Moist Pankaj, dry sterile dressing andcompression wrap was donned to the right lower extremity. Compression wrap was donned to left lower extremity. Patient will continue dressing changes as written. Educated patient to continue ambulation as well as strict blood sugar control. Follow-up at the wound care center with Dr. Shannon in 2 week. 09/27/24 1055 Cosigner Signature (if applicable): CC: ~ Signed [facility]03-14-2025 History of Present illness Narrative* Isabela Campbell, FELT DYEING MACHINE TENDER.[facility] - 09/22/2024 8:40 AM EDT Images from the original note were not included. [facility] ESTABLISHED PATIENT [...] documented by my ancillary staff. Isabela Campbell APRN.REGAN documented [facility]25 NoteHNO ID: [id number] Author: ISABELA CAMPBELL APRN.CNP Service: ? Author Type: Nurse Practitioner Type: Progress Notes Filed: 09/22/2024 09:44 Note Text: [facility] ESTABLISHED PATIENT [...] notes were reviewed. Pt known to Dr. Weller Hx of BPH. Failed tamsulosin. Chronic martines [...] documented by my ancillary staff. Isabela Campbell APRN.[facility]03-12-2025 Telephone encounter Note * Telephone Encounter - Yokasta Gonzalez OCCA - 09/20/2024 9:59 AM EDT [facility] Last documentation of pt's 16FR catheter change is July 2024. Pt is currently being treated with cefdinir for a UTI. Pt started abx 09/17/2024 and will complete 09/24/2024. His fu with Isabela Campbell is 09/22/2024. Yokasta Gonzalez MA [facility]03-12-2025 Miscellaneous Notes* Telephone Encounter - Yokasta Gonzalez OCCA - 09/20/2024 9:59 AM EDT [facility] . Last documentation of pt's 16FR catheter change is July 2024. Pt is currently being treated with cefdinir for a UTI. Pt started abx 09/17/2024 and will complete 09/24/2024. His fu with Isabela Campbell is 09/22/2024. Yokasta Gonzalez MA documented in this encounterS[facility]03-09-2025 Discharge summary Author Juan Cunha [facility] Note Date/Time September 16, 2024 11:3 0pm [facility] Medical Records Department [address] [place] [address] Emergency Department Summary 09/16/24 MR#: [id number] Acct: [id number] Name: JADON ALVAREZ Rep #:[id number] 2 : 1955 69 From: Juan Cunha [...] refused to walk. He is at a long-term facility. This will be relayed to them. Prescription of antibiotics sent with him. Information recheck labs and image study results with adrenal nodule and cysts noted on his discharge paperwork. Discussed Martines catheter exchange due to infection, however he states he has a urology appointment on omx72hj of this month and would like them [...] cough. He said no vomiting or diarrhea. [facility] Medical History MRSA (methicillin resistant staph aureus) [...] % (Auto) 63.1 Lymph % (Auto) 22.5 Canadian % (Auto) 9.6 Eos % (Auto) 4.0 Baso % (Auto) 0.5 Absolute Neuts (auto) 4.6 Absolute Lymphs (auto) 1.64 Nucleated RBC % 0 Lactic Acid 1.2 Urine Color Yellow Urine Clarity Turbid Urine pH 8.0 Ur Specific [place] 1.010 Urine Protein 30 H Urine Glucose [...] DO [Primary Care Provider] - Print Language: Gambian What to do if you have Problems For any increased pain, shortness of breath, bleeding, nausea or vomiting, chestpain, or any unexpected problems, contact your Primary Care Provider. Call [facility] ([phone]) or report to the closest Emergency Room. Call 911 if necessary. 09/16/242206 <Electronically signed by Juan Cunha DO> Cosigner Signature (if applicable): CC: Kathleen Herzog MD ~ Signed [facility] Work Phone: 1(403) 747-592003-08-2025 Discharge summary [facility] Medical Records Department [address] [place] [address] Emergency Department Summary 09/16/24 MR#: [id number] Acct: [id number] Name: JADON ALVAREZ Rep #:[id number] 2 : 1955 69 From: Juan Cunha [...] refused to walk. He is at a long-term facility. This will berelayed to them. Prescription of antibiotics sent with him. Information recheck labs and image study results with adrenal nodule and cysts noted on his discharge paperwork. Discussed Martines catheter exchange due to infection, however he states he has a urology appointment on sag82os of this month and would like them [...] cough. He said no vomiting or diarrhea. [facility] Medical History MRSA (methicillin resistant staph aureus) [...] % (Auto) 63.1 Lymph % (Auto) 22.5 Canadian % (Auto) 9.6 Eos % (Auto) 4.0 Baso % (Auto) 0.5 Absolute Neuts (auto) 4.6 Absolute Lymphs (auto) 1.64 Nucleated RBC % 0 Lactic Acid 1.2 Urine Color Yellow Urine Clarity Turbid Urine pH 8.0 Ur Specific [place] 1.010 Urine Protein 30 H Urine Glucose [...] DO [Primary Care Provider] - Print Language: Gambian What to do if you have Problems For any increased pain, shortness of breath, bleeding, nausea or vomiting, chestpain, or any unexpected problems, contact your Primary Care Provider. Call [facility] ([phone]) or report tothe closest Emergency Room. Call 911 if necessary. 09/16/242206 Cosigner Signature (if applicable): CC: Kathleen Herzog MD ~ Signed [facility]03-08-2025 Radiology Diagnostic study note [facility] [address] [place] [address] Abdomen/Pelvis W IV Cont ONLY MR#: [id number] Acct: [id number] Name: JADON ALVAREZ Rep #: [id number] 2 : 1955 M 69 From: Champ cash Afuwmarcus BASS PCP: Kathleen Herzog MD Status: REG ER Study:Abdomen/Pelvis W IV Cont ONLY Date of E xam: 09/16/24 Exam# [id number] Ordering Dr: Emy Cunha DO PROCEDURE: ABDOMEN/PELVIS [...] use of iterative reconstruction technique). Reading Location: [facility] CC: Dr. Juna Cunha DO; Kathleen Herzog MD ~ Compilation Clerk: Signed [facility]03-08-2025 Radiology Diagnostic study note [facility] [address] [place] [address] Spine Cervical without Contras MR#: [id number] Acct: [id number] Name: JADON ALVAREZ Rep #: [id number] 1 : 1955 M 69 From: Champ Ray DO PCP: Kathleen Herzog MD Status: REG ER Study:Spine Cervical without Contras Date of Exam: 09/16/24 Exam# [id number] Ordering Dr: Emy Cunha DO PROCEDURE: SPINE [...] use of iterative reconstruction technique). Reading Location: [facility] CC: Dr. Juan Cunha DO; Kathleen Herzog MD ~ Compilation Clerk: Signed [facility]03-08-2025 Radiology Diagnostic study note [facility] [address] [place], [place] [address] Brain/Head without Contrast MR#: [id number] Acct: [id number] Name: JADON ALVAREZ Rep #: [id number] 0 : 1955 M 69 From: Champ Ray DO PCP: Kathleen Herzog MD Status: REG ER Study:Brain/Head without Contrast Date of Exa m: 09/16/24 Exam# [id number] Ordering Dr: Emy Cunha DO PROCEDURE: BRAIN/HEAD [...] use of iterative reconstruction technique). Reading Location: [facility] CC: Dr. Juan Cunha DO; Kathleen Herzog MD ~ Compilation Clerk: Signed [facility]03-08-2025 Radiology Diagnostic study note [facility] [address] [place] [address] Chest 1 View (Portable) MR#: [id number] Acct: [id number] Name: JADON ALVAREZ Rep #: [id number] 6 : 1955 M 69 From: Champ Ray DO PCP: Kathleen Herzog MD Status: REG ER Study:Chest 1 View (Portable) Date of Exam: 09/16/24 Exam# [id number] Ordering Dr: Emy Cunha DO PROCEDURE: CHEST 1 VIEW (PORTABLE) REASON FOR EXAM: Weakness TECHNIQUE: Frontal view of the chest. COMPARISON: Chest radiograph dated 01/04/2024 FINDINGS: Sternotomy wires are present. The heart size is normal. The lungs are clear. Degenerative changes are identified within the thoracic spine. RAD/Chest 1 View (Portable) IMPRESSION: No focal consolidation. Reading Location: [facility] CC: Dr. Juan Cunha DO; Kathleen Herzog MD ~ Compilation Clerk: Signed [facility]03-05-2025 Progress note Author Aaron Shannon [facility] Note Date/Time September 13, 2024 9:11 am [facility] [address] [place] [address] Progress Note - Wound Care 09/13/24 1008 MR#: [id number] Acct: [id number] Name: JADON ALVAREZ Rep #:[id number] 3 : 1955 69 From: Aaron Iniguez PM [...] Date Recorded By Document 09/13/24 08:39 ML [id number] 09/13/24 08:43 ML 09/13/24 08:39 WC - Today's Visit Information Type of service Follow-up Visit (Physician/ENDOSCOPY TECH ) Arrival Mode Ambulatory Transfer Assistance None [...] Date Recorded By Document 09/13/24 08:39 ML [id number] 09/13/24 08:43 ML 09/13/24 08:39 Wound Center Nurse 1 #5 RT LAT LE POST-OP -Current Size (cm) - Length 14.5 -Current Size (cm) - Width 3.2 -Current Size (cm) - Depth 0.1 -Total Square Cm 46.40 -Exudate Amt Medium -Exudate Type Serous -Wound Margin Distinct, Outline Attached -Granulation Amt Medium (34-66%) -Granulation Quality [place] -Slough/Fibrin Yes -Necrosis Amt Medium (34-66%) -Necrotic [...] Recorded Date Recorded By Document 09/13/24 08:56 TALI [id number] 09/13/24 09:00 TALI 09/13/24 08:56 Wound Center [...] Patient Pain Free? Yes WC - Nurse 3 - General Ulcer D/C NN Start: 09/13/24 08:39 Freq: Status: Active Protocol: Activity Type Activity Date Activity User E-sign Co-sign Detail Recorded Client Recorded Date Recorded By Document 09/13/24 09:20 NC [id number] 09/13/24 09:21 NC 09/13/24 09:20 Wound Care Center Nurse 3 #5 RT LAT LE POST-OP -Primary Dressing Applied Promogran Pankaj Matter -Other Dressing abd -Primary Dressing Covered/Secured with Dry Gauze,Dry Gauze & Roll Gauze,Secured with Tape -Promogran Pankaj Matter 2 LLE -Compression Wrap Brittany Wrap [...] were cleaned and patted dry. Walter put Pankaj dry sterile dressing and compression wrap was [...] Cosigner Signature (if applicable): CC: ~ Signed [facility] Work Phone: 1(512) 844-497003-05-2025 Progress note [facility] [address] [place] [address] Progress Note - Wound Care 09/13/24 1008 MR#: [id number] Acct: [id number] Name: JADON ALVAREZ Rep #:[id number] 3 : 1955 69 From: Aaron AVILA [...] Date Recorded By Document 09/13/24 08:39 ML [id number] 09/13/24 08:43 ML 09/13/24 08:39 CODY - Today's Visit Information Type of service Follow-up Visit (Physician/ENDOSCOPY TECH ) Arrival Mode Ambulatory Transfer Assistance None [...] Date Recorded By Document 09/13/24 08:39 ML [id number] 09/13/24 08:43 ML 09/13/24 08:39 Wound Center Nurse 1 #5 RT LAT LE POST-OP -Current Size (cm) - Length 14.5 -Current Size (cm) - Width 3.2 -Current Size (cm) - Depth 0.1 -Total Square Cm 46.40 -Exudate Amt Medium -Exudate Type Serous -Wound Margin Distinct, Outline Attached -Granulation Amt Medium (34-66%) -Granulation Quality [place] -Slough/Fibrin Yes -Necrosis Amt Medium (34-66%) -Necrotic [...] Recorded Date Recorded By Document 09/13/24 08:56 TAIL [id number] 09/13/24 09:00 TALI 09/13/24 08:56 Wound Center [...] Patient Pain Free? Yes WC - Nurse 3 - General Ulcer D/C NN Start: 09/13/24 08:39 Freq: Status: Active Protocol: Activity Type Activity Date Activity User E-sign Co-sign Detail Recorded Client Recorded Date Recorded By Document 09/13/24 09:20 NC [id number] 09/13/24 09:21 NC 09/13/24 09:20 Wound Care Center Nurse 3 #5 RT LAT LE POST-OP -Primary Dressing Applied Promogran Pankaj Matter -Other Dressing abd -Primary Dressing Covered/Secured with Dry Gauze,Dry Gauze & Roll Gauze,Secured with Tape -Promogran Pankaj Matter 2 LLE -Compression Wrap Brittany Wrap [...] were cleaned and patted dry. Walter put Pankaj dry sterile dressing and compression wrap was donned to the right lower extremity. Compression wrap was donned to left lower extremity. Patient will continue dressing changes as written. Educated patient to continue ambulation as well as strict blood sugar control. Follow-up at the wound care center with Dr. Shannon in 2 week. 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 August 30, 025 8:45am Other specified peripheral vascular diseases inactive [...] exposed chronic November 29, 2024 9 :36am [facility] Work Phone: 1(494) 989-693702-11-2025 Telephone encounter Note* Telephone Encounter - Isela Shea - 08/22/2024 8:24 AM EST senior care called to cancel/no transport They w/c to [facility] Isela Shea [facility]02-11-2025 Miscellaneous Notes* Telephone Encounter - Isela Shea - 08/22/2024 8:24 AM EST senior care called to cancel/no transport They w/c to [facility] Isela Shea documented in [facility]01-[facility]25 Hospital Discharge instructions Patient Education 07/28/2024 [...] person (emergency physician, psychiatrist, psychiatric nurse or industrial technician, armored vehicle officer or tow feeder's deputy) that you are: A danger to [...] behaviors and ask you to seek help [phone] [employer]. [address] [place] [address], [place] [address]. All rights reserved. This information is not intended as a substitute for professional medical care. Always follow yourhealthcare professional's instructions. Follow Up Care 07/28/2024 14:41:39 With:KELLIE BENITES APRN-ENDOSCOPY TECH Address: [address] [place] [phone] When:2-4 days [facility] 01-17-2025 Note* Exam Date Time Procedure Performing Provider Status 07/28/24 3:15 PM EKG [ED AOH] - CV FERNANDO ZEE MD; Auth (Verified) ECG Final Report Sinus rhythm Prolonged GA interval Incomplete left bundle branch block Baseline wander in lead(s) III Electronic Signature: FERNANDO ZEE MD 07/28/2024 15:18:17 [facility]01-02-2025 Telephone encounter Note* Telephone Encounter - Isela Shea - 07/13/2024 8:36 AM EST Nannette from [facility] called st bladder issues and bloodin bag has resolved and they wanted to cancel the 07/19/2024 appt and keep 08/22/2024. Isela Shea [facility]01-02-2025 Miscellaneous Notes* Telephone Encounter - Isela Shea - 07/13/2024 8:36 AM EST Nannette from [facility] called st bladder issues and bloodin bag has resolved and they wanted to cancel the 07/19/2024 appt and keep 08/22/2024. 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 July 11 8:30am Non-pressure chronic ulcer o f other [...] tract infection) acute October 10, 2024 5:46pm [facility] Work Phone: 1(662) 214-619812-31-2024 Evaluation note* Diagnosis Onset Date Resolution Status Admit Date 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 July 11 8:30am Non-pressure chronic ulcer o f other [...] 2024 9:00am Martines catheter problem acute Ap ril 2024 5:46pm Pancytopenia acute October 10, 025 5:46pm Sepsis acute October 10 5:46pm UTI (urinary tract infection) acute October 10, 2024 5:46pm Blood bacterial culture positive acute October 13, 2024 1:59pm Pancytopenia acute October 13 025 1:59pm 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 October 13, 2024 1:59pm [facility] Work Phone: 1(954) 744-533612-31-2024 Evaluation note* Diagnosis Onset Date Resolution Status [...] 13, 2024 1:59pm Pancytopenia resolved October 13 1:59pm Sepsis resolved October 13 1:59pm UTI (urinary tract infection) resolv ed October 13, 2024 1:59pm [facility] Work Phone: 1(317) 229-988711-25-2024 Evaluation note* Diagnosis Onset Date Resolution Status [...] leg with fat layer chronic June 07 024 8:45am Non-pressure chronic ulcer o f left [...] fat layer chronic September 13, 2024 8:37am [facility] Work Phone: 1(504) 747-500610-10-2024 Miscellaneous Notes* Telephone Encounter - Kira Carrasco - 04/20/2024 8:52 AM EDT Called patient to reschedule. Spoke with son Romina who stated patient is at [facility] and will probably stay there for nursing home care. Patient has had surgery and treatment through wound care so son is thinking he doesn't need to be seen here. Kira Carrasco documented in this encounterShel[facility]10-10-2024 Telephone encounter Note * Telephone Encounter - Kira Carrasco - 04/20/2024 8:52 AM EDT Called patient to reschedule. Spoke with son Romina who stated patient is at [facility] and will probably stay there for nursing home care. Patient has had surgery and treatment through wound care so son is thinking he doesn't need to be seen here. Kira Carrasco [facility]10-01-2024 Note. MICRO - Microbiology PROCEDURE: Blood [...] Locations *1: This test was performed at: [address]10-01-2024 Note. MICRO - Microbiology PROCEDURE: Blood Culture [...] Locations *1: This test was performed at: [address]09-28-2024 Hospital Discharge instructions Patient Education 04/08/2024 10:07:28 [...] a lot of fat or sugar. Take ruoc-ice-qdzrldp and prescription medicines only as told by [...] 06/28/2006 Document Revised: 06/10/2018 Document Reviewed: 08/21/2016 [employer] Patient Education 2020 [employer]. Follow Up Care 04/06/2024 09:27:35 With:KELLIE BENITES Address: [address] [place] [phone] When: Unknown [facility] 09-28-2024 Note Discharge Instructions Thank you for allowing [facility] to assist you with your healthcare needs. The following is importantdischarge information regarding your hospital visit. Your Care Team [facility] Your Diagnosis Abdominal pain Atrial flutter CKD stage 3 due to type 2 diabetes mellitus Diabetes mellitus type 2 Groin abscess Weakness What to do next Scheduled Follow-Up Appointments Appointment Type When With Where Contact Information StatusPC OV 04/13/2024 11:00 AM EDT KELLIE BENITES [address] [phone] Confirmed CV OV 06/14/2024 09:30 AM GAVINO CRONIN JASMIN [facility] CVC Confirmed Follow Up Appointments Follow Up with KELLIE BENITES Where:[address] [place] [address] [phone] The Following Activity and Diet Have Been [...] Signed By - Ordered -- 04/08/24 8:39:00 EDTJOSEFINA RACHEL L APRN-CNP Transfer of Care Oxygen Therapy - Ordered [...] a day Duration: 7 Days Pickup at [facility] 04/08/24 8:57a.m. Changed amLODIPine (Norvasc 5 [...] Topical Once a day None Unchanged DME (Kongregateyle Anai 2 Deland) See Instructions Use reader to scan sensor daily for blood sugar checks. Scan at least once every 8 hours None Unchanged DME (OpenChimeStyle Deland 14 day sensor) See Instructions 1 month [...] Milligram Subcutaneous Every week None Pharmacy Information [facility]: [address] [place] [address] [phone] What How Much When Why Comments Stop Taking acetaminophen (acetaminophen 500 mg oral tablet) 2 tab(s) by mouth Three (3) times a day as needed for pain or fever 04/07/24 12:46a.m. Stop Taking acetaminophen-hydrocodone (Tarrytown 325- 5 mg oral tablet) 1 tab(s) [...] MPC, Lymepak, Mondoxyne NL, Monodox, Morgidox, Morgidox [id number], Morgidox 9c692xp, Okebo, Oracea, Targadox, Vibramycin, Vibramycin Monohydrate What [...] bone and tooth development in a nursing infant. Do not breastfeed while you are taking doxycycline. Doxycycline can cause permanent yellowing or graying of the teeth in children younger than 8 years old. Children should use doxycycline only in cases of severe or life-threatening conditions such as anthrax or [place] spotted fever. The benefit of treating a [...] may report side effects to FDA at 9-282-VXZ-7663. What other drugs will affect doxycycline? Sometimes it is not safe to use certain medications at the same time. Some drugs can affect your blood levels of other drugs you take, which may increase side effects or make the medications less effective. Other drugs may affect doxycycline, including prescription and eotw-tyi-dmfmrdy medicines, vitamins, and herbal products. Tell your [...] to ensure that the information provided by [employer]. ('Sansant[employer]') is accurate, up-to-date, and complete, but no guarantee is made to that effect. Drug information contained herein may be time sensitive. [employer] information has been compiled for use by healthcare practitioners and consumers in the [place] and therefore [employer] does not warrant that uses outside of the [place] are appropriate, unless specifically indicated otherwise. [employer] drug information does not endorse drugs, diagnose patients or recommend therapy. [employer] drug information isan informational resource designed to [...] effective or appropriate for any given patient. [employer] does not assume any responsibility for any aspect of healthcare administered with the aid of information [employer] provides. The information contained herein is not intended to cover all possible uses, directions, precautions, warnings, drug interactions, allergic reactions, or adverse effects. If you have questions about the drugs you are taking, check with your doctor, nurse or pharmacist. Copyright 3262-5864 [employer]. Version: .. Revision Date: 03/17/2023. Education Materials Dehydration, Adult [...] a lot of fat or sugar. Take dqjl-bpz-tuzdznx and prescription medicines only as told by [...] 06/28/2006 Document Revised: 06/10/2018 Document Reviewed: 08/21/2016 [employer] Patient Education 2020 [employer] Additional Information VACCINATE! IT SAVES LIVES! Members of the community who have not yet received the COVID-19 vaccine and would like to receive it can visit one of [facility] vaccine clinics. There are many vaccine clinic locations within the [facility]. For locations and available times, please visit https://gettheshot.coronavirus.[place].gov/. It is important to note that some COVID mobile vaccine clinics are held outdoors and may be canceled in rainy or stormy conditions. To learn more about pediatric vaccinations (ages 5-11), we invite you to visit the [facility] webpage. https://www.[facility].org/pages/1681-Uxgae-Xpuxjoszqkl-Ulfmdfowqx-Hpyly-Aml stions.htmlTo learn more about the COVID-19 vaccine, we invite you to visit the CDC website for a list of frequently asked questions.https://www.cdc.gov/coronavirus/2019-ncov/vaccines/faq.html [facility] Patient Portal Access Instructions: Stay connected with your healthcare team and access your personal medical information anytime with the [facility] Patient Portal. Please follow the directions below to create your [facility] account: 1.Access the email account you provided upon registration to the hospital/physician office.2.Look for an invitation email from [facility].3.Open the email and access the invitation link: AcceptInvitation to [facility].4.Fill in the required breen to create your account. To access your account, visit Duetto/[email or web address]. Click the blue button labeled Access Patient [...] who you will allowto register on the [facility] Patient Portal for access to your information. You can also access the [facility] Patient Portal on the NextPotential Anywhere priscilla. Simply click on Patient Portal and then log into your account. If you would like to receive a full copy of your medical records, please contact the [facility] Medical Records Department by calling [phone], Wednesday through Wednesday between 8 a.m. and [...] Call your local pharmacy or go to [email or web address] [email or web address] to find one close to you.3.Make use of household items: Use cat litter or old coffee grounds to dispose medications if other options arenot available. Mix your drugs with these household products, seal them in an airtight container andthrow it into the garbage. Call [facility]: [phone] to be sure your drugs can be [...] aware that I should contact my doctor. 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 MICRO - Microbiology PROCEDURE: Urine [...] Locations *1: This test was performed at: [facility], [address] [place] [address], [id number]09-27-2024 Note Date of Service 04/07/2024 Chief Complaint [...] flutter Weakness- Patient was just discharged from [facility] last week. He thought he could take care of himself but neither he nor his son manage caring for himself. Patient does not want to to live [facility] but recognizes that he can't live [...] patient's home. Patient has been accepted by [facility] and pre-CERT has been started. Groin Abscess- [...] by MIRELA OLIVO on 04/07/2024 02:57 PM [facility]09-27-2024 Pastoral care Progress note Pastoral Care Note Entered On: 04/07/2024 9:25 EDT Performed On: 04/07/2024 9:22 EDT by Edward Manzo Pastoral Care Type of Pastoral Visit : Initial visit [...] by Edward Manzo on 04/07/2024 09:22 AM [facility]09-27-2024 Note. MICRO - Microbiology PROCEDURE: Urine [...] Locations *1: This test was performed at: [facility], [address] [place] [address], [phone] , [facility]09-26-2024 Note Date of Service 04/06/2024 Chief Complaint [...] and OT. Patient was just discharged from [facility] last week. He thought he could take care of himself but neither he nor his son manage caring for himself. Patient does notwant to to live an an [facility] but recognizes that he can't live at [...] 1 puff(s), Inhalation, BID FreeStyle Anai 2 Deland See Instructions FreeStyle Deland 14 day sensor See Instructions gabapentin 300 [...] BID Mounjaro 5 mg/0.5 mL subcutaneous solution Tarrytown 325- 5 mg oral tablet 1 tab(s), [...] Living situation: Home/Independent. Domestic Concerns: None. 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 Current HomeTreatments Oxygen therapy, CPAP. Professional Skilled Services or Special Community Resources None., 10/13/2023 Nutrition/Health Type of diet: Diabetic, Just started seeing nutrionist at [facility], doesn't eat much fruits or veggies. Drinks [...] by MIRELA OLIVO on 04/06/2024 05:35 PM [facility]09-26-2024 Evaluation + Plan noteExtracted from: Title:History and Physical Author:MIRELA OLIVO Date:04/06/24 1. Weakness 2. Groin abscess 3. CKD stage 3 due to type 2 diabetes mellitus 4. Atrial flutter Weakness- Consult PT and OT. Patient was just discharged from [facility] last week. He thought he could [...] Appointment Date:04/13/2024 11:00:00 AM Scheduled Provider:KELLIE BENITES Location[facility] Appointment Type:PC OV Appointment Date:06/14/2024 09:30:00 AM Scheduled Provider:GAVINO AG Location:[facility] Appointment Type:CV OV Future Scheduled Tests Laboratory* Basic Metabolic Panel 01/11/24 * Urinalysis w/ C&S if Indicated 04/04/24 * Albumin/Creatinine Ratio, Random Urine 06/11/23 * N-Terminal proBNP 01/11/24 [facility] 09-26-2024 Note ORIGINAL EXAMINATION: ONE XRAY [...] Date: 04/06/2024 10:36:49 AM Ordering Provider[facility] Hospital Discharge instructions Patient Education 04/05/2024 00:38:00 [...] for 6 hours Weakness, dizziness, or fainting [phone] [employer]. [address] [place] [address]. All rights reserved. This information is not [...] Boil returns when you are at home [phone] [employer]. [address] [place] [address]. All rights reserved. This information is not intended as a substitute for professional medical care. Always follow yourhealthcare professional's instructions. Follow Up Care 04/04/2024 21:11:33 With:KELLIE BENITES Address: [address] [place] [address] [phone] When:2-4 days [facility] 09-25-2024 Note Discharge Instructions Thank you for allowing [facility] to assist you with your healthcare needs. The following is importantdischarge information regarding your hospital visit. Diagnosis from Today's Visit Abdominal pain What to Do Next Instructions from Your Care Team No qualifying data available. Post Acute Orders No qualifying data available. You Need to Schedule the Following Appointments Follow Up with KELLIE BENITES When:Within 2-4 days Where:[address] [place] [address] [phone] Allergies Nuprin Unknown misc non-codified allergy unknown Medications Please ask your primary doctor or pharmacist before taking any other medication not listed, including over the counter drugs, herbal medications, vitamins and or supplements as they may interact [facility] medications. What How Much When Why Instructions Last Dose New acetaminophen-hydrocodone (Tarrytown 325- 5 mg oral tablet) 1 tab(s) [...] for 6 hours Weakness, dizziness, or fainting 4241-0631 [employer]. [address] [place] [address]. All rights reserved. This information is not [...] Boil returns when you are at home [phone] [employer]. [address] [place] [address]. All rights reserved. This information is not intended as a substitute for professional medical care. Always follow yourhealthcare professional's instructions. Additional Information VACCINATE! IT SAVES LIVES! Members of the community who have not yet received the COVID-19 vaccine and would like to receive it can visit one of [facility] vaccine clinics. There are many vaccine clinic locations within the [facility]. For locations and available times, please visit www.gettheshot.coronavirus.[place].gov/. It is important to note that some COVID mobile vaccine clinics are held outdoors and may be canceled in rainy or stormy conditions. To learn more about pediatric vaccinations (ages 5-11), we invite you to visit the [facility] webpage. https://www.[facility].org/pages/1525-Jmbpd-Dmkhjaeofcx-Avwjmsbajq-Xgwwa-Ran stions.htmlTo learn more about the COVID-19 vaccine, we invite you to visit the CDC website for a list of frequently asked questions. https://www.cdc.gov/coronavirus/2019-ncov/vaccines/faq.html [facility] Patient Portal Access Instructions: Stay connected with your healthcare team and access your personal medical information anytime with the [facility] Patient Portal. If you would like a full copy of your medical records please contact the [facility] Medical Records Department Wednesday through Wednesday between 8a.m. and 4:30p.m. Please follow the directions below to access the portal: 1.Access the email account you provided upon registration to the hospital.2.Look for an invitation email from [facility].3.Open the email and access the invitation link: Accept Invitation to [facility]4.Fill in the required breen to create your account. Sign into [email or web address] with your username and password that you [...] you will allow to register on the [facility] Patient Portal for access to your information. You can also access the [facility] Patient Portal on the R[employer]star. Simply click on Health Records under [employer] and then click on the [facility] logo. HOW TO SAFELY DISPOSE OF PRESCRIPTION [...] Call your local pharmacy or go to [email or web address] [email or web address] Securities/[email or web address] to find one close to you.3.Make use of household items: Use cat litter or old coffee grounds to dispose medications if other options arenot available. Mix your drugs with these household products, seal them in an airtight container andthrow it into the garbage. Call [facility]: [phone] to be sure your drugs can be [...] aware that I should contact my doctor. 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: Relationship to Patient: Witness Name/Signature: Date/Time: [facility]09-24-2024 Note ORIGINAL EXAMINATION: CT OF THE [...] 04/04/2024 11:30:06 PM Ordering Provider: [facility]09-24-2024 Evaluation + Plan note Future Scheduled Tests Laboratory* Urinalysis w/ C&S if Indicated 04/04/24 [facility] 09-04-2024 Note ORIGINAL EXAMINATION: LIMITED RETROPERITONEAL ULTRASOUND03/15/2024 [...] Sign Date: 03/15/2024 4:55:52 PM Ordering Provider: [place] [address]-08-2024 Note HNO ID: [id number] Author: SHAR DOWNS MD Service: ? Author Type: Physician Type: Procedures Filed: 02/17/2024 09:10 Note Text: [facility] PROCEDURE NOTE PATIENT: [...] out performed before the procedure was initiated. Respiratory Practitioner offered and present for procedure. Prior Martines [...] Completed Patient instructions: Completed Shar Downs MD 02/17/2024[facility]08-08-[facility] Procedure note* Shar Downs MD - 02/17/2024 9:05 AM EDT Images from the original note were not included. [facility] PROCEDURE NOTE PATIENT: [...] time out performedbefore the procedure was initiated. Respiratory Practitioner offered and present for procedure. Prior Martines [...] CompletedPatient instructions: Completed Shar Downs MD 02/17/2024 [facility]08-08-2024 Instructions* Patient Instructions* Shar Downs MD - 02/17/2024 9:05 AM EDT [facility] POST-CYSTOSCOPY INSTRUCTIONS [...] extra fluids. Thank you. [facility] Procedure note* Shar Downs MD - 02/17/2024 9:05 AM EDT Images from the original note were not included. [facility] PROCEDURE NOTE PATIENT: [...] time out performedbefore the procedure was initiated. Respiratory Practitioner offered and present for procedure. Prior Martines [...] Shar Downs MD 02/17/2024 [facility] Nurse Note* Eli Bull RN - 02/17/2024 8:46 AM EDT Respiratory Practitioner assist with procedure Martines catheter balloon deflated and catheter removed and discarded intact for procedure Eli Bull RN [facility]08-08-2024 Nurse Note* Eli Bull RN - 02/17/2024 8:46 AM EDT Respiratory Practitioner assist with procedure Martines catheter balloon deflated and catheter removed and discarded intact for procedure Eli Bull RN documented in [facility] Note* Exam Date Time Procedure Performing Provider Status 01/28/24 9:20 AM Echocardiogram, Adult - CV Auth (Verified) [facility] 07-17-2024 Note. MICRO - Microbiology PROCEDURE: [...] Locations *1: This test was performed at: [address], [address] [place], [place] [address]-25-2024 Note. MICRO - Microbiology PROCEDURE: Blood Culture [...] Locations *1: This test was performed at: [address], [address] [place], [place] [address]-21-2024 Hospital Discharge instructions Patient Education 01/21/2024 13:13:49 [...] with treatment, or get worse New symptoms [phone] [employer]. [address] [place] [address]. All rights reserved. This information is not intended as a substitute for professional medical care. Always follow yourhealthcare professional's instructions. Follow Up Care 01/21/2024 11:12:10 With:GAVINO AG Address: [address] [place] [address] [address] [phone] When:2-4 days [facility] 07-12-2024 Emergency department Discharge summary Discharge Instructions Thank you for allowing [facility] to assist you with your healthcare needs. The following is importantdischarge information regarding your hospital visit. Diagnosis from Today's Visit Bradycardia Decreased level of consciousness What to Do Next Instructions from Your Care Team Call your tin container straightener and make a follow-up appointment. You have persistent low heart rate which may need further testing or change in your medications. Your tin container straightener did order an echocardiogramwhich should be completed. No qualifying data available. Post Acute Orders No qualifying data available. You Need to Schedule the Following Appointments Follow Up with GAVINO AG When:Within 2-4 days Where:[address] [facility] [address] [place] [phone] Allergies Nuprin Unknown misc non-codified allergy unknown [...] with treatment, or get worse New symptoms 5079-9109 [employer]. [address] [place] [address]. All rights reserved. This information is not intended as a substitute for professional medical care. Always follow yourhealthcare professional's instructions. Additional Information VACCINATE! IT SAVES LIVES! Members of the community who have not yet received the COVID-19 vaccine and would like to receive it can visit one of [facility] vaccine clinics. There are many vaccine clinic locations within the [facility]. For locations and available times, please visit www.gettheshot.coronavirus.[place].gov/. It is important to note that some COVID mobile vaccine clinics are held outdoors and may be canceled in rainy or stormy conditions. To learn more about pediatric vaccinations (ages 5-11), we invite you to visit the [facility] webpage. https://www.[facility].org/pages/2420-Ctren-Zfratyysyyg-Jzokptrfqm-Pjcwt-Zho stions.htmlTo learn more about the COVID-19 vaccine, we invite you to visit the CDC website for a list of frequently asked questions. https://www.cdc.gov/coronavirus/2019-ncov/vaccines/faq.html [facility] Patient Portal Access Instructions: Stay connected with your healthcare team and access your personal medical information anytime with the [facility] Patient Portal. If you would like a full copy of your medical records please contact the [facility] Medical Records Department Wednesday through Wednesday between 8a.m. and 4:30p.m. Please follow the directions below to access the portal: 1.Access the email account you provided upon registration to the [facility].2.Look for an invitation email from [facility].3.Open the email and access the invitation link: Accept Invitation to [facility]4.Fill in the required breen to create your account. Sign into [email or web address] with your username and password that you [...] you will allow to register on the [facility] Patient Portal for access to your information. You can also access the [facility] Patient Portal on the [employer] priscilla. Simply click on Health Records under [employer] and then click on the NextPotential logo. HOW TO SAFELY DISPOSE OF PRESCRIPTION [...] Call your local pharmacy or go to http://bit.8 Securities/6Z7Yn6n to find one close to you.3.Make use of household items: Use cat litter or old coffee grounds to dispose medications if other options arenot available. Mix your drugs with these household products, seal them in an airtight container andthrow it into the garbage. Call [facility]: [phone] to be sure your drugs can be [...] aware that I should contact my doctor. 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: Relationship to Patient: Witness Name/Signature: Date/Time: [facility]07-12-2024 Note ORIGINAL EXAMINATION: ONE XRAY VIEW [...] Date: 01/21/2024 12:24:34 PM [facility]ing [facility] NoteSinus rhythm Left bundle branch block Electronic Signature: FERNANDO ZEE MD 01/21/2024 11:31:08[facility] 07-10-2024 Telephone encounter Note* Telephone Encounter - Isela Shea - 01/19/2024 10:40 AM EDT senior care called to RS appt, no transport Moved to 02/17/2024 Isela Shea [facility]07-10-2024 Miscellaneous Notes* Telephone Encounter - Isela Shea - 01/19/2024 10:40 AM EDT senior care called to RS appt, no transport Moved to 02/17/2024 Isela Shea documented [facility]-2024 NoteHNO ID: [id number] Author: SHAR DOWNS MD Service: ? Author Type: Physician Type: Progress Notes Filed: 01/12/2024 15:38 Note Text: [facility] NEW [...] Urinary retention. Martines in one week. From [facility]. Prior to that, could only void small [...] depressed results. 11/18/2023 1 (more content not included)...[facility] [facility] History of Present illness Narrative* Shar Downs MD - 01/12/2024 3:34 PM EDT Images from the original note were not included. [facility] NEW [...] Urinary retention. Martines in one week. From [facility]. Prior to that, could only void small [...] MD Staff Urologist [facility]. MICRO - Microbiology PROCEDURE: Blood [...] Locations *1: This test was performed at: [address], [address] [place], [place] [address]-19-2023 Note. MICRO - Microbiology PROCEDURE: Blood Culture [...] Locations *1: This test was performed at: [address], [address] [place], [place] [address]-13-2023 Hospital Discharge instructions Patient Education 11/13/2023 21:40:24 [...] or higher after 2 days on antibiotics 1896-0369 [employer]. [address] [place] [address]. All rights reserved. This information is not intended as a substitute for professional medical care. Always follow yourhealthcare professional's instructions. Follow Up Care 11/13/2023 19:57:40 With:your wound care doctor Address: When:2-4 days [facility] 05-04-2024 Note Discharge Instructions Thank you for allowing [facility] to assist you with your healthcare needs. [...] MPC, Lymepak, Mondoxyne NL, Monodox, Morgidox, Morgidox 9x726ya, Morgidox 9q617gy, Okebo, Oracea, Targadox, Vibramycin, Vibramycin Monohydrate What [...] or life-threatening conditions such as anthrax or [place] spotted fever. The benefit of treating a [...] may report side effects to FDA at 2-077-BHH-0925. What other drugs will affect doxycycline? Sometimes it is not safe to use certain medications at the same time. Some drugs can affect your blood levels of other drugs you take, which may increase side effects or make the medications less effective. Other drugs may affect doxycycline, including prescription and mcxq-fff-wdryfqx medicines, vitamins, and herbal products. Tell your [...] to ensure that the information provided by [employer]. ('[employer]') is accurate, up-to-date, and complete, but no guarantee is made to that effect. Drug information contained herein may be time sensitive. [employer] information has been compiled for use by healthcare practitioners and consumers in the [place] and therefore [employer] does not warrant that uses outside of the [place] are appropriate, unless specifically indicated otherwise. [employer] drug information does not endorse drugs, diagnose patients or recommend therapy. [employer] drug information isan informational resource designed to [...] effective or appropriate for any given patient. [employer] does not assume any responsibility for any aspect of healthcare administered with the aid of information [employer] provides. The information contained herein is not intended to cover all possible uses, directions, precautions, warnings, drug interactions, allergic reactions, or adverse effects. If you have questions about the drugs you are taking, check with your doctor, nurse or pharmacist. Copyright 6895-8849 [employer]. Version: 25.. Revision Date: 03/17/2023. Education Materials [...] or higher after 2 days on antibiotics 5796-5771 [employer]. [address] [place] [address]. All rights reserved. This information is not intended as a substitute for professional medical care. Always follow yourhealthcare professional's instructions. Additional Information VACCINATE! IT SAVES LIVES! Members of the community who have not yet received the COVID-19 vaccine and would like to receive it can visit one of [facility] vaccine clinics. There are many vaccine clinic locations within the [facility]. For locations and available times, please visit www.gettheshot.coronavirus.[place].gov/. It is important to note that some COVID mobile vaccine clinics are held outdoors and may be canceled in rainy or stormy conditions. To learn more about pediatric vaccinations (ages 5-11), we invite you to visit the [facility] webpage. https://www.[facility].org/pages/5223-Bzbcn-Xacpjjzikyi-Cmzmmjlxso-Uxbip-Eox stions.htmlTo learn more about the COVID-19 vaccine, we invite you to visit the CDC website for a list of frequently asked questions. https://www.cdc.gov/coronavirus/2019-ncov/vaccines/faq.html [facility] Patient Portal Access Instructions: Stay connected with your healthcare team and access your personal medical information anytime with the [facility] Patient Portal. If you would like a full copy of your medical records please contact the [facility] Medical Records Department Wednesday through Wednesday between 8a.m. and 4:30p.m. Please follow the directions below to access the portal: 1.Access the email account you provided upon registration to the [facility].2.Look for an invitation email from [facility].3.Open the email and access the invitation link: Accept Invitation to [facility]4.Fill in the required breen to create your account. Sign into [email or web address] with your username and password that you [...] you will allow to register on the [facility] Patient Portal for access to your information. You can also access the [facility] Patient Portal on the [employer] priscilla. Simply click on Health Records under [employer] and then click on the Denise logo. HOW TO SAFELY DISPOSE OF PRESCRIPTION [...] Call your local pharmacy or go to http://bit.ly/6F8Sp5x to find one close to you.3.Make use of household items: Use cat litter or old coffee grounds to dispose medications if other options arenot available. Mix your drugs with these household products, seal them in an airtight container andthrow it into the garbage. Call [facility]: [phone] to be sure your drugs can be [...] aware that I should contact my doctor. 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: Relationship to Patient: Witness Name/Signature: Date/Time: [facility]05-04-2024 Note ORIGINAL EXAMINATION: TWO XRAY VIEWS [...] Date: 11/13/2023 9:57:19 PM Ordering Provider: FERNANDO ELISHADuke [facility]04-24-2024 Progress note Author Regan Kelly [facility] November 03, 2023 6:19pm Note Date/Time November 03, 2023 6:1 9pm [facility] Medical Records Department [address] [place] [address] Progress Note - GI 11/03/23 1818 MR#: [id number] Acct: [id number] Name: JADON ALVAREZ Kenia Rep #:[id number] 2 : 1955 68 From: Regan Kelly DO PCP: NIKKO Toscano Status:ADM CASEY Location: [place] [address] Subjective Subjective Patient underwent an upper and [...] Patient is a 68-year-old male who presented [facility] ED on 10/28/2023 with failure to thrive. [...] one hemostatic clip was successfully placed. Clip certified scrum master: [employer]. There was no bleeding at the end [...] Resected and retrieved. Clip was placed. Clip certified scrum master: [employer]. - A single (solitary) ulcer at the hepatic flexure. Treated with a heater probe. Recommendation: - Discharge patient to home. - Resume regular diet. - Continue present medications. - Await pathology results. - Repeat colonoscopy in 1 year for surveillance. Charges/Coding Visit Charges Inpatient E&M: 45248 Subs Hosp L3 11/03/231818 <Electronically signed by Regan Kelly DO> Cosigner Signature (if applicable): CC: ~ Signed [facility] Work Phone: 1(856) 493-818404-24-2024 Discharge summary Author Louie Howard [facility] November 03, 2023 4:40pm Note Date/Time November 03, 2023 4:2 9pm [facility] Medical Records Department [address] [place] [address] Transfer to [facility] MR#: [id number] Acct: [id number] Name: JADON ALVAREZ Rep #:[id number] 3 : 1955 68 From: Louie Howard [...] PRIOR TO HIS/HER TRANSFER TO THE ECF. 11/03/23 1640<Electronically signed by Louie Howard DO> [...] patient, he will need temporary placement in long-term facility for rehab services #2 bilateral lower [...] pt request. Will continue Santhosh bid at [facility] to support skin healing. Fluid restriction as needed per physician. Discharge Plan Admission Admit Date/Time: 10/28/23 16:54 Primary Reason for Your Visit: Debility, lower extremity edema, lymphedema Attending Provider: Louie Howard Primary Care Provider: Kellie Benites NP Consulting Providers: Louie Howard; Washington Ames Discharge [...] QWEEK Referrals / Follow Up: Kellie Benites NP, ANCILLARY SERVICES MANAGER THERAPY-C [Primary Care Provider] - Disposition Disposition (needs filled in before D/C Order can be placed): [facility] Facility 11/03/23 1640 <Electronically signed by Louie Howard DO> Cosigner Signature (if applicable): CC: SACHI-C Kellie Benites; Dr. Washington Ames DO; Dr. Louie Howard DO ~ [facility] Work Phone: 1(376) 486-443204-23-2024 Progress note Author Louie [facility]rain[facility] center[facility] November 02, 2023 6:39pm Note Date/Time November 02, 2023 6:3 9pm [facility] Medical Records Department [address] [place] [address] Progress Note - Hospitalist 11/02/23 1834 MR#: [id number] Acct: [id number] Name: JADON ALVAREZ Rep #:[id number] 1 : 1955 68 From: Louie Howard DO PCP: NIKKO Toscano Status:ADM CASEY Location: [place] [address] Reason for Visit Reason for Visit: Diagnoses [...] heater probe. Patient has been accepted to long-term facility, he will be reevaluated tomorrow morning [...] (Auto) 64.2, Lymph % (Auto) 17.3 L, Canadian % (Auto) 13.4 H, Eos % (Auto) [...] patient, he will need temporary placement in long-term facility for rehab services #2 bilateral lower [...] 35 minutes Charges/Coding Visit Charges Inpatient E&M: 18140 Subs Hosp L2 11/02/23 1839 <Electronically signed by Louie Howard DO> Cosigner Signature (if applicable): CC: ~ Signed [facility] Work Phone: 1(961) 457-344704-23-2024 Procedure [facility] 11-02-2023 Procedure [facility]04-23-2024 Procedure note [facility]04-23-2024 Procedure [facility] 11-01-2023 Progress note Author Regan Kelly [facility] November 01, 2023 5:13pm Note Date/Time November 01, 2023 5:1 3pm [facility] Medical Records Department [address] [place] [address] Progress Note - GI 11/01/23 1711 MR#: [id number] Acct: [id number] Name: JADON ALVAREZ Rep #:[id number] 3 : 1955 68 From: Regan Kelly DO PCP: NIKKO Toscano Status:ADM CASEY Location: [place] [address] Subjective Subjective Patient has been on a [...] Patient is a 68-year-old male who presented [facility] ED on 10/28/2023 with failure to thrive. [...] endoscopy tomorrow. Charges/Coding Visit Charges Inpatient E&M: 91465 Subs Hosp L2 11/01/23 1713 <Electronically signed by Regan Kelly DO> Cosigner Signature (if applicable): CC: ~ Signed [facility] Work Phone: 1(564) 886-611304-22-2024 Progress note Author Louie Howard [facility] November 01, 2023 3:57pm Note Date/Time November 01, 2023 3:5 1pm [facility] Medical Records Department [address] [place] [address] Progress Note - Hospitalist 11/01/23 1531 MR#: [id number] Acct: [id number] Name: JADON ALVAREZ Rep #:[id number] 4 : 1955 68 From: Louie Howard DO PCP: NIKKO Toscano Status:ADM CASEY Location: [place] [address] Reason for Visit Reason for Visit: Diagnoses [...] / 1320 Output Total 500 / 500 2050 / 2050 850 / 850 Balance 790 [...] patient, he will need temporary placement in long-term facility for rehab services #2 bilateral lower [...] 35 minutes Charges/Coding Visit Charges Inpatient E&M: 98624 Subs Hosp L2 11/01/23 7824 <Electronically signed by Louie Howard DO> Cosigner Signature (if applicable): CC: ~ Signed [facility] Work Phone: 1(399) 823-971804-21-2024 Consult note Author Regan Kelly [facility] October 31, 2023 5:22pm Note Date/Time October 31, 2023 5:1 8pm [facility] Medical Records Department [address] [place] [address] Consultation - GI 10/31/23 1718 MR#: [id number] Acct: [id number] Name: JADON ALVAREZ Rep #:[id number] 9 : 1955 68 From: Regan Kelly DO PCP: NIKKO Toscano Status:ADM CASEY Location: [place] [address] HPI Consult Data Date of Consult: 10/31/23 [...] and right lower extremity hematoma transferred to [facility] for evaluation of the right lower extremity [...] bleeding in the setting of anemia. [facility] Medical History Atrial fibrillation/flutter Benign essential [...] Patient is a 68-year-old male who presented [facility] ED on 10/28/2023 with failure to thrive. [...] to undergo Charges/Coding Visit Charges Inpatient E&M: 46488 Init Hosp L3 10/31/23 1722 <Electronically signed by Regan Kelly DO> Cosigner Signature (if applicable): CC: NIKKO Benites~ Signed [facility] Work Phone: 1(912) 612-621004-21-2024 Progress note Author Louie Howard [facility] October 31, 2023 12:13pm Note Date/Time October 31, 2023 12: 13pm [facility] Medical Records Department [address] [place] [address] Progress Note - Hospitalist 10/31/23 1208 MR#: [id number] Acct: [id number] Name: JADON ALVAREZ Rep #:[id number] 5 : 1955 68 From: Louie Howard DO PCP: NIKKO Toscano Status:ADM CASEY Location: [place] [address] Reason for Visit Reason for Visit: Diagnoses [...] patient, he will need temporary placement in long-term facility for rehab services #2 bilateral lower [...] 35 minutes Charges/Coding Visit Charges Inpatient E&M: 76963 Subs Hosp L2 10/31/23 1213 <Electronically signed by Louie Howard DO> Cosigner Signature (if applicable): CC: ~ Signed [facility] Work Phone: 1(465) 401-781104-20-2024 Progress note Author Louie Ramachandranrain[facility] lake medical centeradelaide [facility] October 30, 2023 5:24pm Note Date/Time October 30, 2023 5:2 3pm [facility] Medical Records Department [address] [place] [address] Progress Note - Hospitalist 10/30/23 1712 MR#: [id number] Acct: [id number] Name: JAODN ALVAREZ Rep #:[id number] 9 : 1955 68 From: Louie Howard DO PCP: NIKKO Toscano Status:ADM CASEY Location: [place] [address] Reason for Visit Reason for Visit: Diagnoses [...] patient, he will need temporary placement in long-term facility for rehab services #2 bilateral lower [...] 50 minutes Charges/Coding Visit Charges Inpatient E&M: 73476 Subs Hosp L3 10/30/23 1724 <Electronically signed by Louie Howard DO> Cosigner Signature (if applicable): CC: ~ Signed [facility] Work Phone: 1(879) 128-564904-19-2024 Progress note Author Washington Ames [facility] October 29, 2023 1:25pm Note Date/Time October 29, 2023 11: 45am [facility] Medical Records Department [address] [place] [address] Progress Note - Hospitalist 10/29/23 1145 MR#: [id number] Acct: [id number] Name: JADON ALVAREZ Rep #:[id number] 4 : 1955 68 From: Washington lin DO PCP: NIKKO Toscano Status:ADM CASEY Location: [place] [address] Reason for Visit Reason for Visit: Diagnoses [...] 74.7 H, Lymph % (Auto) 13.4 L, Canadian % (Auto) 9.3, Eos % (Auto) 1.8, [...] (Auto) 68.6, Lymph % (Auto) 16.6 L, Canadian % (Auto) 10.7 H, Eos % (Auto) [...] acute abnormality is seen. Electronically Signed: Jesse Stewatr MD at 14:09 EDT [place] Location ID and State: [facility] / [place] , Service support , Physical Exam Const alert, oriented x3 [...] Patient is a 68-year-old male who presented [facility] ED on 10/28/2023 with failure to thrive. [...] of himself at home so came to [facility] for further evaluation. Workup in the ED was fairly benign. Has remained hemodynamically stable since admission. ? PT/OT/case management following. Has Brittany wraps in place in bilateral legs, continue [...] with meals, tirzepatide 5 mg weekly. Continue Kpatij59 units daily, sliding scale insulin with meals [...] 35 minutes. Charges/Coding Visit Charges Inpatient E&M: 79773 Subs Hosp L2 10/29/23 1325 <Electronically signed by Washington Ames DO> Cosigner Signature (if applicable): CC: ~ Signed [facility] Work Phone: 1(673) 153-313604-19-2024 Discharge summary Author Shayna Martinez [facility] October 29, 2023 9:58am Note Date/Time October 28, 2023 1:3 3pm [facility] Medical Records Department [address] [place] [address] Emergency Department Summary 10/28/23 MR#: [id number] Acct: [id number] Name: JADON ALVAREZ Rep #:[id number] 3 : 1955 68 From: Wu SHARIF PCP: NIKKO Toscano Status:ADM CASEY Location: [place] [address] HPI <CHANTE Perez - Last Filed: 10/28/23 17:08> History of Present Illness Chief Complaint: Lower Extremity Injury Narrative Narrative: 60-year-old male with past medical history of HTN, DM2, atrial flutter, CHF, DVT, CKD, PAWEL, AV replacement went home from [facility] yesterday and cannot perform ADLs or dress his right lower extremity. He originally went to [facility] ED on 10/03/2023 after he fell at home and had a facial laceration and right lower extremity hematoma that became progressively worse with blistering of the skin. He is on Eliquis for atrial flutter. He was transferred to [facility] for evaluation of the right leg. He does not really know the details of what happened but he ended up in [facility] rehab and issupposed to wear Brittany wrap's [...] and he had no other associated symptoms. [facility] <CHANTE Perez - Last Filed: 10/28/23 17:08> [facility] Medical History (Updated 10/28/23 @ 16:53 [...] Nasal Cannula Oxygen Flow Rate (L/min) 2 MDM <CHANTE Perez - Last Filed: 10/28/23 17:08> [facility] Narrative Medical decision making narrative: Patient had a fall on 10/03/2023 injuring his face and right lower extremity withhematoma formation. He went home from [facility] yesterday and cannot ambulate and perform ADLs independently. He presents for placement. He is awakeand alert and has no acute complaints. Vital signs are stable. Screening labs are at baseline. He has a normal white count at 5.6, hemoglobin is 8.7 (it was 7.8 on 10/20/2023 at [facility]). Renal function is normal. Troponin 21. EKG nonischemic. Patient does not have any acute medical problemsbut needs to go back to rehab due to inability to perform ADLs at home or ambulate well. Case will be discussed with social work. The healthcare social worker states he requires PT/OT evaluation and precertification [...] admitted at [facility] and [facility]. It is unclear if on direct questioning is to apply he had a administering him to [facility]. Exam is morbidly obese male no [...] 74.7 H Lymph % (Auto) 13.4 L Canadian % (Auto) 9.3 Eos % (Auto) 1.8 [...] Martinez, DO - Last Filed: 10/28/23 15:23> [facility] Narrative Medical decision making narrative: Patient had a fall on 10/03/2023 injuring his face and right lower extremity withhematoma formation. He went home from [facility] yesterday and cannot ambulate and perform ADLs independently. He presents for placement. He is awakeand alert and has no acute complaints. Vital signs are stable. Screening labs are at baseline. He has a normal white count at 5.6, hemoglobin is 8.7 (it was 7.8 on 10/20/2023 at [facility]). Renal function is normal. Troponin 21. EKG [...] admitted at [facility] and [facility]. It is unclear if on direct questioning is to apply he had a administering him to [facility]. Exam is morbidly obese male no [...] 74.7 H Lymph % (Auto) 13.4 L Canadian % (Auto) 9.3 Eos % (Auto) 1.8 [...] Provider: Kellie Benites NP Referrals: Kellie Benites ANCILLARY SERVICES MANAGER THERAPY, ANCILLARY SERVICES MANAGER THERAPY-C [Primary Care Provider] - What to do if you have Problems For any increased pain, shortness of breath, bleeding, nausea or vomiting, chestpain, or any unexpected problems, contact your Primary Care Provider. Call [facility] ([phone]) or report to the closest Emergency Room. Call 911 if necessary. 10/28/23 1704 <Electronically signed by Wu Glauthier PA> Cosigner Signature (if applicable): 10/29/23 0958 <Electronically signed by Shayna Martinez DO> CC: ANCILLARY SERVICES MANAGER THERAPY-C Kellie Benites ~ Signed [facility] Work Phone: 1(641) 179-629504-18-2024 History and physical note Author Sommer Xie [facility] October 28, 2023 5:50pm Note Date/Time October 28, 2023 4:5 6pm [facility] Medical Records Department [address] [place] [address] H&P Exam - Hospitalist 10/28/23 1654 MR#: [id number] Acct: [id number] Name: JADON ALVAREZ Rep #:[id number] 9 : 1955 68 From: Sommer Xie [...] Chronic lymphedema/PVD, PAWEL who presents to the [facility] ED on 10/28/23with history of leaving earlier than recommended from [facility] rehab facility the day prior with plan transition to home PT and OT with history of 10/03/2019 for evaluation in the ED with mechanical fall with facial laceration andright lower extremity hematoma transferred to [facility] for evaluation of the right lower extremity [...] x-ray with no acute cardiopulmonary findings. [facility] Medical History Atrial fibrillation/flutter Benign essential [...] 74.7 H, Lymph % (Auto) 13.4 L, Canadian % (Auto) 9.3, Eos % (Auto) 1.8, [...] Chronic lymphedema/PVD, PAWEL who presents to the [facility] ED on 10/28/23with history of leaving earlier than recommended from [facility] rehab facility the day prior with plan transition to home PT and OT with history of 10/03/2019 for evaluation in the ED with mechanical fall with facial laceration and right lower extremity hematoma transferred to [facility] for evaluation of the right lower extremity [...] [facility] to [facility] with no surgical intervention, conservative approach, eventually restarted eliquis, will continue Brittany wraps to bilateral lower extremity given edema with pulse dose IV Lasix as noted above as may help with walking ability and continue to compress. PT/OT/case management consulted for discharge planning. #3. Normocytic anemia, chronic: Admission CBC with hemoglobin 8.7, MCV 91.2, prior noted to be 7.8 at [facility] on 10/20/23, will continue to trend. #4. [...] also in the interim. #12. Hx VTE: [facility] 10/22/23 RLE with chronic DVT evidence R [...] 16 minutes. Charges/Coding Visit Charges Inpatient E&M: 61158 Init Hosp L2 Procedures Hospitalists Procedures: 44540 Advncd Care Plan 30 Min 10/28/23 1750 <Electronically signed by Sommer Xie MD> Cosigner Signature (if applicable): CC: NIKKO Benites; Dr. Sommer Xie MD~ Signed [facility] Work Phone: 1(389) 999-342504-18-2024 History and physical note Author [facility] October 28, 2023 5:50pm Note Date/Time October 28, 2023 4:5 6pm [facility] Medical Records Department [address] [place] [address] H&P Exam - Hospitalist 10/28/23 1654 MR#: [id number] Acct: [id number] Name: JADON ALVAREZ Rep #:[id number] : 1955 68 From: Sommer Xie [...] Chronic lymphedema/PVD, PAWEL who presents to the [facility] ED on 10/28/23with history of leaving earlier than recommended from [facility] rehab facility the day prior with plan transition to home PT and OT with history of 10/03/2019 for evaluation in the ED with mechanical fall with facial laceration andright lower extremity hematoma transferred to [facility] for evaluation of the right lower extremity [...] x-ray with no acute cardiopulmonary findings. [facility] Medical History Atrial fibrillation/flutter Benign essential [...] 74.7 H, Lymph % (Auto) 13.4 L, Canadian % (Auto) 9.3, Eos % (Auto) 1.8, [...] Chronic lymphedema/PVD, PAWEL who presents to the [facility] ED on 10/28/23with history of leaving earlier than recommended from [facility] rehab facility the day prior with plan transition to home PT and OT with history of 10/03/2019 for evaluation in the ED with mechanical fall with facial laceration and right lower extremity hematoma transferred to [facility] for evaluation of the right lower extremity [...] [facility] to [facility] with no surgical intervention, conservative approach, eventually restarted eliquis, will continue Brittany wraps to bilateral lower extremity given edema with pulse dose IV Lasix as noted above as may help with walking ability and continue to compress. PT/OT/case management consulted for discharge planning. #3. Normocytic anemia, chronic: Admission CBC with hemoglobin 8.7, MCV 91.2, prior noted to be 7.8 at [facility] on 10/20/23, will continue to trend. #4. [...] 16 minutes. Charges/Coding Visit Charges Inpatient E&M: 94704 Init Hosp L2 Procedures Hospitalists Procedures: 31248 Advncd Care Plan 30 Min 10/28/23 1750 <Electronically signed by Sommer Xie MD> Cosigner Signature (if applicable): CC: NIKKO Benites; Dr. Sommer Xie MD~ Signed [facility] Work Phone: [phone] 781-186004-17-2024 Hospital Discharge instructions Patient Education 10/27/2023 09:48:34 [...] and water are not available, use hand life science research assistant. ?Change your dressing as told by your [...] antibiotic even if your condition improves. Take kzwq-lbs-rqekiyk and prescription medicines only as told by [...] 04/06/2009 Document Revised: 10/16/2019 Document Reviewed: 01/12/2017 [employer] Patient Education 2020 [employer]. Follow Up Care 10/13/2023 14:22:49 With:DAVE GOMES DO Address: [address] [place] [address] [phone] When: Unknown Comments:Call office if you change your mind. We recommend that you follow up to determine if there is a blood clotting disorder. With:[facility]EN[facility]ES [facility] Address: [address] [facility] [place] [address]- [phone] When: Unknown Comments:Please call to schedule your post-hospital follow-up appointment with your primary care. With:ANIRUDH SZYMANSKI DO, Orthopedic Address: [address] [facility], [place] [address] [phone] When:10/27/2023 11:00:00 Comments:This is your orthopedic follow-up appointment. With:GAVINO AG FELT DYEING MACHINE [facility] Address: [address] [place] [address] [address] [place] [address] [phone] When:11/01/2023 11:15:00 Comments:This is your post-hospital follow-up appointment with cardiology. [facility] 2024 Note Discharge Instructions Thank you for allowing [facility] to assist you with your healthcare needs. [...] recommended that you follow up with a chartered wealth manager(blood doctor) to see if you have a clotting disorder. You declined. If you change your mind, there is a chartered wealth manager name and phone number listed in your discharge paper work. Cari was restarted. Scheduled Follow-Up Appointments Appointment Type When With Where Contact InformationCV Hospital Follow Up 11/01/2023 11:15 AM EDT GAVINO AG [facility] MEDS - Diabetic Individual Visit 12/30/2023 09:00 AM EDT [place] Diet Visits [phone] Follow Up Appointments Follow Up with GAVINO AG When 11/01/2023 11:15 AM EDT Why: This is your post-hospital follow-up appointment with cardiology. Where: [address] [facility] [address] [place] [address] [phone] Follow Up with ANIRUDH SZYMANSKI DO, Orthopedic When 10/27/2023 11:00 AM EDT Why: This is your orthopedic follow-up appointment. Where: [address] [facility], [place] [address] [phone] Follow Up with DAVE GOMES DO When Why: Call office if you change your mind. We recommend that you follow up to determine if there is a blood clotting disorder. Where: [address] [place] [address] [phone] Follow Up with KELLIE BENITES When Why: Please call to schedule your post-hospital follow-up appointment with your primary care. Where: [address] [place] [address] [phone] The Following Activity and Diet Have Been [...] a day Duration: 5 Days Pickup at [facility] Changed acetaminophen-oxyCODONE (acetaminophen-oxyCODONE 325 mg-5 mg oral tablet) 1 tab(s) by mouth Every 6 hours as needed for for pain Acute pain Duration: 3 Days Pickup at [facility] Unchanged amLODIPine (amLODIPine 5 mg oral [...] mg/ 0.5 mL subcutaneous solution) Pharmacy Information [facility]: [address] [place] [address] [phone] What How Much When Comments Stop Taking [...] MPC, Lymepak, Mondoxyne NL, Monodox, Morgidox, Morgidox 2h259gx, Morgidox 1k164io, Okebo, Oracea, Targadox, Vibramycin, Vibramycin Monohydrate What [...] or life-threatening conditions such as anthrax or [place] spotted fever. The benefit of treating a [...] may report side effects to FDA at 1-059-CNO-5156. What other drugs will affect doxycycline? Sometimes it is not safe to use certain medications at the same time. Some drugs can affect your blood levels of other drugs you take, which may increase side effects or make the medications less effective. Other drugs may affect doxycycline, including prescription and godt-ztj-hxyzxga medicines, vitamins, and herbal products. Tell your [...] to ensure that the information provided by [employer]. ('Mult[employer]') is accurate, up-to-date, and complete, but no guarantee is made to that effect. Drug information contained herein may be time sensitive. [employer] information has been compiled for use by healthcare practitioners and consumers in the [place] and therefore [employer] does not warrant that uses outside of the [place] are appropriate, unless specifically indicated otherwise. [employer] drug information does not endorse drugs, diagnose patients or recommend therapy. [employer] drug information isan informational resource designed to [...] effective or appropriate for any given patient. [employer] does not assume any responsibility for any aspect of healthcare administered with the aid of information [employer] provides. The information contained herein is not intended to cover all possible uses, directions, precautions, warnings, drug interactions, allergic reactions, or adverse effects. If you have questions about the drugs you are taking, check with your doctor, nurse or pharmacist. Copyright 3674-5976 [employer]. Version: 25.01. Revision Date: 03/17/2023. acetaminophen and oxycodone (a [...] may report side effects to FDA at 2-483-IKH-6792. What other drugs will affect acetaminophen and [...] affect acetaminophen and oxycodone, including prescription and mtsm-ytl-yqhrvrl medicines, vitamins, and herbal products. Not all [...] to ensure that the information provided by [employer]. ('[employer]') is accurate, up-to-date, and complete, but no guarantee is made to that effect. Drug information contained herein may be time sensitive. [employer] information has been compiled for use by healthcare practitioners and consumers in the [place] and therefore [employer] does not warrant that uses outside of the [place] are appropriate, unless specifically indicated otherwise. [employer] drug information does not endorse drugs, diagnose patients or recommend therapy. [employer] drug information isan informational resource designed to [...] effective or appropriate for any given patient. [facility] does not assume any responsibility for any aspect of healthcare administered with the aid of information [facility] provides. The information contained herein is not intended to cover all possible uses, directions, precautions, warnings, drug interactions, allergic reactions, or adverse effects. If you have questions about the drugs you are taking, check with your doctor, nurse or pharmacist. Copyright 7245-8994 [facility] [employer]. Version: 22.. Revision Date: 02/11/2023. Education Materials [...] soap and water arenot available, use hand life science research assistant. ? Change your dressing as told by [...] antibiotic even if your condition improves. Take ujab-yac-jjozrey and prescription medicines only as told by [...] 04/06/2009 Document Revised: 10/16/2019 Document Reviewed: 01/12/2017 Elsevier Patient Education 2020 [employer] Additional Information VACCINATE! IT SAVES LIVES! Members of the community who have not yet received the COVID-19 vaccine and would like to receive it can visit one of [facility] vaccine clinics. There are many vaccine clinic locations within the [facility]. For locations and available times, please visit https://gettheshot.coronavirus.[place].gov/. It is important to note that some COVID mobile vaccine clinics are held outdoors and may be canceled in rainy or stormy conditions. To learn more about pediatric vaccinations (ages 5-11), we invite you to visit the [facility] webpage. https://www.NewLeaf Symbioticss.org/pages/0220-Gkqor-Qokanebgywi-Ofbqjrpmdq-Hzlqm-Vtd stions.htmlTo learn more about the COVID-19 vaccine, we invite you to visit the CDC website for a list of frequently asked questions.https://www.cdc.gov/coronavirus/2019-ncov/vaccines/faq.html [facility] Patient Portal Access Instructions: Stay connected with your healthcare team and access your personal medical information anytime with the [facility] Patient Portal. Please follow the directions below to create your [facility] account: 1.Access the email account you provided upon registration to the hospital/physician office.2.Look for an invitation email from [facility].3.Open the email and access the invitation link: AcceptInvitation to DeniseAdteractive.4.Fill in the required breen to create your account. To access your account, visit [email or web address]. Click the blue button labeled Access Patient [...] who you will allowto register on the [facility] Patient Portal for access to your information. You can also access the [facility] on the [facility] Anywhere priscilla. Simply click on Patient Portal and then log into your account. If you would like to receive a full copy of your medical records, please contact the [facility] Medical Records Department by calling [phone], Wednesday through Wednesday between 8 a.m. and [...] Call your local pharmacy or go to [email or web address] [email or web address] to find one close to you.3.Make use of household items: Use cat litter or old coffee grounds to dispose medications if other options arenot available. Mix your drugs with these household products, seal them in an airtight container andthrow it into the garbage. Call [facility]: [phone] to be sure your drugs can be [...] aware that I should contact my doctor. 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 Spoke with son and patient is still in hospital. Scheduled with Dr. Edmondson on 11/04/23. Bianca Nascimento [facility] Note Date of Service 10/22/2023 Chief Complaint Asthenia Subjective 68-year-old male with past medical history significant for atrial flutter, HFpEF, CKD Stage 3, PAWEL,DVT, BPH, AV replacement, type 2 diabetes mellitus, morbid obesity. Patient originally to [facility] emergency department on 10/03/2023 after sustaining a fall at home. Patient sustained a facial laceration and hematoma to the right lower extremity thatbecame progressively worse with blistering of the skin. He was anticoagulated with apixaban for atrial flutter which was held on admission. However, his hemoglobin dropped to 6.5 requiring PRBC transfusion. He was subsequently transferred to [facility] for further evaluation due to concern for bleeding. Interventional radiology was consulted but did not recommend hematoma drainage due to risk for repeat bleeding. He required 1 PRBC transfusion at [facility] for hemoglobin of 6.9. He was found [...] by MIRELA OLIVO on 10/23/2023 04:41 PM [facility]04-12-2024 Note* Exam Date Time Procedure Performing Provider Status 10/22/23 11:03 AM VL Venous US/Doppler One Leg (for DVT). Auth (Verified) [facility] 04-08-2024 Note* Exam Date Time Procedure Performing Provider Status 10/18/23 8:36 AM VL Venous US/Doppler Both Legs(for DVT) Auth (Verified) [facility] 04-07-2024 Note Date of Service 10/17/2023 [...] Consult PT and OT - following. director field services following for discharge planning. 2. Leg wound, right Adaptic to be applied daily. Right lower extremity evaluated today and appears to be improving slowly. 3. Atrial flutter Chronic, rate controlled. Continue metoprolol 12.5 mg twice daily. Amiodarone, Coreg and Cardizem stopped by cardiology over at [facility]. Anticoagulation currently on hold until patient is [...] collaborating with physician, and documenting in chart. CPT#72185 Digitally Signed by WU WADSWORTH on 10/17/2023 01:41 PM [facility]04-04-2024 Evaluation + Plan noteExtracted from: Title:History and Physical Author:KOMARLON WUKenia CASTELLANOS Date:10/14/23 1. Asthenia Consult PT and OT. Prior to patient being transferred to [facility] patient was going to be discharged to [facility] as he had low motivation to participate in therapy. He was however having a great deal of pain from hematoma and fall at that time. 2. Leg wound, right Adaptic to be applied daily. 3. Atrial flutter Chronic, rate controlled. Continue metoprolol 12.5 mg twice daily. Amiodarone, Coreg and Cardizem stopped by cardiology over at [facility]. Anticoagulation currently on hold until patient is [...] may intubate. Seen by palliative care at [facility]. Labs, diagnostic test and progress notes reviewed [...] with physician, and documenting in chart. CPT #[id number] Future Appointments Appointment Date:11/01/2023 11:15:00 AM Scheduled Provider:GAVINO AG Location:[facility] Appointment Type:CV Hospital Follow Up Appointment Date:12/30/2023 09:00:00 AM Scheduled Provider: Location:[facility] Appointment Type:MEDS - Diabetic Individual Visit Future Scheduled Tests Laboratory* Basic Metabolic Panel 02/13/23 * Prostate Specific Antigen 02/13/23 * Prostate Specific Antigen 10/08/22 * Complete Blood Count 10/08/22 * Lipid Profile 10/08/22 * Albumin/Creatinine Ratio, Random Urine 06/11/23 * Complete Metabolic Panel 10/08/22 [facility] 04-04-2024 Note Date of Service 10/14/2023 Chief Complaint weakness History of Present Illness Patient is a 68-year-old male, who follows with Kellie Benites CNP with past medical history significant for atrial flutter, HFpEF, CKD Stage 3, PAWEL, DVT, BPH, AV replacement, type 2 diabetes mellitus, morbid obesity, presented originally to [facility] emergency department on 10/03/2023 after sustaining a fall at home. In the fall, patient sustained a facial laceration and hematoma to the right lower extremity that became progressively worse with blistering of the skin. He was anticoagulated with apixaban for atrial flutter which was held on admission. However, his hemoglobin dropped to 6.5 requiring PRBC transfusion. He was subsequently transferred to [facility] for further evaluation due to concern for bleeding. Interventional radiology was consulted but didnot recommend hematoma drainage due to risk for repeat bleeding. He required 1 PRBC transfusion at [facility] for hemoglobin of 6.9. He was found [...] OT. Prior to patient being transferred to [facility] patient was going to be discharged to [facility] as he had low motivation to participate in therapy. He was however having a great deal of pain from hematoma and fall at that time. 2. Leg wound, right Adaptic to be applied daily. 3. Atrial flutter Chronic, rate controlled. Continue metoprolol 12.5 mg twice daily. Amiodarone, Coreg and Cardizem stopped by cardiology over at [facility]. Anticoagulation currently on hold until patient is [...] may intubate. Seen by palliative care at [facility]. Labs, diagnostic test and progress notes reviewed [...] collaborating withphysician, and documenting in chart. CPT #[id number] Problem List/Past Medical History Ongoing Acute embolism [...] Living situation: Home/Independent. Domestic Concerns: None. 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 Current HomeTreatments Oxygen therapy, CPAP. Professional Skilled Services or Special Community Resources None., 10/13/2023 Nutrition/Health Type of diet: Diabetic, Just started seeing nutrionist at [facility], doesn't eat much fruits or veggies. Drinks [...] by WU WADSWORTH on 10/14/2023 09:52 AM [facility]04-03-2024 Cardiology Progress note Date of Service [...] PM Digitally Signed by NEPTALI LIZAMA MD [facility] [id number] Hospital Discharge instructions Patient Education 10/13/2023 11:50:41 Bradycardia, Adult Bradycardia, Adult Bradycardia is a khzvdv-wkwt-zldeda heartbeat. A normal resting heart rate for [...] care provider. Follow a heart-healthy diet. A agricultural extension specialist (dietitian) can help educate you about [...] hard liquor (44 mL). General instructions Take ctcl-lku-zmbtjph and prescription medicines only as told by [...] pain. ?Trouble breathing. Summary Bradycardia is a daxtlh-vwrh-evdudk heartbeat. With bradycardia, the resting heart rate [...] 03/20/2003 Document Revised: 01/09/2019 Document Reviewed: 12/07/2018 [employer] Patient Education 2020 [employer]. 10/13/2023 11:50:34 Hematoma, Jtsz-fx-Znkn Hematoma A hematoma is a collection of [...] astold by your doctor. General instructions Take sdzg-uxu-abjywkh and prescription medicines only as told by [...] 08/05/2005 Document Revised: 12/01/2018 Document Reviewed: 12/01/2018 [employer] Patient Education 2020 [employer]. Follow Up Care 10/06/2023 14:54:52 With:ANIRUDH SZYMANSKI DO, Orthopedic Address: [address] [place] [address]- [phone] When:Within 2 Week(s) Comments:call for follow up appointment with orthopedics for re-evaluation of hematoma. With:[facility] Swing Bed, , skilled; ambulance transport arranged for 6:30pm via [facility], Ext. [phone]. Address:Unknown When:1-2 days With:NAHED MASON MD Address: [address] [facility] [address] [facility] [place] [address]- When:Within 2 Week(s) Comments:Call for follow up appointment with cardiology. With:KELLIE BENITES APRN-[facility] Address: [address] [place] [place] [phone] When:5 to 7 days Comments:Call for follow-up appointment with your primary care provider. With:JACINTA MARIANO MD, [facility], Surgery, Vascular Surgeons Address: [address] [facility] [address] [facility] [place] [address] [phone] When:Within 1 Week(s) Comments:Call for follow up appointment with vascular surgery. With:SANG PARSONS MD Address: [address] [facility] [place] [address] [phone] When:Within 2 Week(s) Comments:Call for appointment with hematology for further evaluation of recurrent blood clots. [facility] 04-03-2024 Note Discharge Instructions Thank you for allowing [facility] to assist you with your healthcare needs. The following is importantdischarge information regarding your hospital visit. Your Care Team KELLIE BENITES Your Diagnosis Diabetes mellitus type 2 What to do next Instructions From Your Doctor Discharge to [facility]. Contact your primary care provider for [...] InformationNUT Diet Visit Individual 10/22/2023 08:30 AM [facility] Diet Visits [phone] PC OV 10/22/2023 09:30 AM EDT KELLIE BENITES [address] [phone] MEDS - Diabetic Individual Visit 12/30/2023 09:00 AM [facility] Diet Visits [phone] Follow Up Appointments Follow Up with [facility], , skilled; ambulance transport arranged for 6:30pm via [facility], Ext. [phone]. When Within 1-2 days Follow Up with NAHED MASON MD When In 2 weeks Why: Call for follow up appointment with cardiology. Where: [address] [facility] [address] [facility] [place] [address]- Follow Up with KELLIE BENITES When Within 5 to 7 days Why: Call for follow-up appointment with your primary care provider. Where: [address] [place] [address] [phone] Follow Up with JACINTA MARIANO MD, [facility], Surgery, Vascular Surgeons When In 1 week Why: Call for follow up appointment with vascular surgery. Where: [address] [facility] [address] [facility] [place] [address] [phone] Follow Up with SANG PARSONS MD When In 2 weeks Why: Call for appointment with hematology for further evaluation of recurrent blood clots. Where: [address] [facility] [place] [phone] The Following Activity and Diet Have Been [...] Education Materials Bradycardia, Adult Bradycardia is a pcvfao-ahqn-fausfk heartbeat. A normal resting heart rate for [...] care provider. Follow a heart-healthy diet. A agricultural extension specialist (dietitian) can help educate you about [...] hard liquor (44 mL). General instructions Take smvy-uzf-moexdep and prescription medicines only as told by [...] ? Trouble breathing. Summary Bradycardia is a rckmcx-nayn-mtobkd heartbeat. With bradycardia, the resting heart rate [...] 03/20/2003 Document Revised: 01/09/2019 Document Reviewed: 12/07/2018 [employer] Patient Education 2020 [employer] Hematoma A hematoma is a collection [...] astold by your doctor. General instructions Take sxdm-rhl-nvpnryq and prescription medicines only as told by [...] 08/05/2005 Document Revised: 12/01/2018 Document Reviewed: 12/01/2018 [employer] Patient Education 2020 [employer] Additional Information VACCINATE! IT SAVES LIVES! Members of the community who have not yet received the COVID-19 vaccine and would like to receive it can visit one of [facility] vaccine clinics. There are many vaccine clinic locations within the [facility]. For locations and available times, please visit https://gettheshot.coronavirus.[place].gov/. It is important to note that some COVID mobile vaccine clinics are held outdoors and may be canceled in rainy or stormy conditions. To learn more about pediatric vaccinations (ages 5-11), we invite you to visit the [facility] webpage. https://www.[facility].org/pages/9219-Pnmqf-Czchmwvcpkf-Cqaeksdxyk-Uqzll-Grc stions.htmlTo learn more about the COVID-19 vaccine, we invite you to visit the CDC website for a list of frequently asked questions.https://www.cdc.gov/coronavirus/2019-ncov/vaccines/faq.html [facility] Patient Portal Access Instructions: Stay connected with your healthcare team and access your personal medical information anytime with the [facility] Patient Portal. Please follow the directions below to create your [facility] account: 1.Access the email account you provided upon registration to the hospital/physician office.2.Look for an invitation email from [facility].3.Open the email and access the invitation link: AcceptInvitation to [facility].4.Fill in the required breen to create your account. To access your account, visit Duetto/TouchIN2 Technologiest. Click the blue button labeled Access Patient Portal and then log in with the username and password that you created in the steps above. You will be able to view your test results, lab results, a summary of your visits, upcoming appointments and more. There is also a convenient messaging option where you can send secure messages to your p TrustAlertvider. In addition, you will have the ability to download any documents or summaries to your computer and/or send the information securely to a physician. Remember that your healthcare information is confidential, so carefully consider who you will allowto register on the [facility] Patient Portal for access to your information. You can also access the [facility] Patient Portal on the NextPotential Anywhere priscilla. Simply click on Patient Portal and then log into your account. If you would like to receive a full copy of your medical records, please contact the [facility] Medical Records Department by calling [phone], Wednesday through Wednesday between 8 a.m. and [...] Call your local pharmacy or go to [email or web address] to find one close to you.3.Make use of household items: Use cat litter or old coffee grounds to dispose medications if other options arenot available. Mix your drugs with these household products, seal them in an airtight container andthrow it into the garbage. Call [facility]: [phone] to be sure your drugs can be [...] Signatures Patient Education Materials Bradycardia, Adult Hematoma, Nwax-hp-Hhln Medication Leaflets My discharge plan and instructions have been reviewed and explained to me and I,JADON ALVAREZ understand my current condition and have read and understand these discharge instructions. I have received a written copy of the plan/instructions. If I have questions, I am aware that I should contact my doctor. 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 The following is importantdischarge information regarding your hospital visit. Your Care Team KELLIE BENITES Your Diagnosis Diabetes mellitus type 2 What to do next Instructions From Your Doctor Discharge to [facility]. Contact your primary care provider for [...] InformationNUT Diet Visit Individual 10/22/2023 08:30 AM [facility] Diet Visits [phone] PC OV 10/22/2023 09:30 AM EDT KELLIE BENITES [address] [phone] MEDS - Diabetic Individual Visit 12/30/2023 09:00 AM [facility] Diet Visits [phone] Follow Up Appointments Follow Up with NAHED MASON MD When In 2 weeks Why: Call for follow up appointment with cardiology. Where: [address] [facility] [address] [facility] [place] [address]- Follow Up with KELLIE BENITES When Within 5 to 7 days Why: Call for follow-up appointment with your primary care provider. Where: [address] [facility] [place] [address]- [phone] Follow Up with JACINTA MARIANO MD, [facility], Surgery, Vascular Surgeons When In 1 week Why: Call for follow up appointment with vascular surgery. Where: [address] [facility] [address] [facility] [place] [address] [phone] Follow Up with SANG PARSONS MD When In 2 weeks Why: Call for appointment with hematology for further evaluation of recurrent blood clots. Where: [address] [facility] [place] [address] [phone] The Following Activity and Diet Have Been [...] Education Materials Bradycardia, Adult Bradycardia is a hsysco-plwv-nfmdgk heartbeat. A normal resting heart rate for [...] care provider. Follow a heart-healthy diet. A agricultural extension specialist (dietitian) can help educate you about [...] hard liquor (44 mL). General instructions Take jqeo-wwn-dtsdgba and prescription medicines only as told by [...] ? Trouble breathing. Summary Bradycardia is a qmgtky-bafe-wmdeyh heartbeat. With bradycardia, the resting heart rate [...] 03/20/2003 Document Revised: 01/09/2019 Document Reviewed: 12/07/2018 [employer] Patient Education 2020 [employer] Hematoma A hematoma is a collection [...] astold by your doctor. General instructions Take mtxv-hzi-agkvzgo and prescription medicines only as told by [...] 08/05/2005 Document Revised: 12/01/2018 Document Reviewed: 12/01/2018 [employer] Patient Education 2020 [employer] Additional Information VACCINATE! IT SAVES LIVES! Members of the community who have not yet received the COVID-19 vaccine and would like to receive it can visit one of [facility] vaccine clinics. There are many vaccine clinic locations within the [facility]. For locations and available times, please visit https://gettheshot.coronavirus.[place].gov/. It is important to note that some COVID mobile vaccine clinics are held outdoors and may be canceled in rainy or stormy conditions. To learn more about pediatric vaccinations (ages 5-11), we invite you to visit the [facility] webpage. https://www.[facility].org/pages/4873-Smxiw-Ookmprrgwez-Tlbtnsujor-Duhlu-Dwi stions.htmlTo learn more about the COVID-19 vaccine, we invite you to visit the CDC website for a list of frequently asked questions.https://www.cdc.gov/coronavirus/2019-ncov/vaccines/faq.html [facility] Patient Portal Access Instructions: Stay connected with your healthcare team and access your personal medical information anytime with the [facility] Patient Portal. Please follow the directions below to create your Refund Exchange account: 1.Access the email account you provided upon registration to the hospital/physician office.2.Look for an invitation email from [facility].3.Open the email and access the invitation link: AcceptInvitation to [facility].4.Fill in the required breen to create your account. To access your account, visit Duetto/Metriclyhart. Click the blue button labeled Access Patient Portal and then log in with the username and password that you created in the steps above. You will be able to view your test results, lab results, a summary of your visits, upcoming appointments and more. There is also a convenient messaging option where you can send secure messages to your WatchDoxvider. In addition, you will have the ability to download any documents or summaries to your computer and/or send the information securely to a physician. Remember that your healthcare information is confidential, so carefully consider who you will allowto register on the [facility] Patient Portal for access to your information. You can also access the [facility] Patient Portal on the [facility] Anywhere priscilla. Simply click on Patient Portal and then log into your account. If you would like to receive a full copy of your medical records, please contact the [facility] Medical Records Department by calling [phone], Wednesday through Wednesday between 8 a.m. and [...] Call your local pharmacy or go to [email or web address] to find one close to you.3.Make use of household items: Use cat litter or old coffee grounds to dispose medications if other options arenot available. Mix your drugs with these household products, seal them in an airtight container andthrow it into the garbage. Call [facility]: [phone] to be sure your drugs can be [...] Signatures Patient Education Materials Bradycardia, Adult Hematoma, Wvgt-zg-Uhdp Medication Leaflets My discharge plan and instructions have been reviewed and explained to me and I,JADON ALVAREZ understand my current condition and have read and understand these discharge instructions. I have received a written copy of the plan/instructions. If I have questions, I am aware that I should contact my doctor. 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 Patient was transferred to [facility] for continued treatment evaluation. Interventional [...] chronic. Case was also discussed with vascular surgerywho recommends repeat ultrasound in 1 week. Patient to follow-up with vascular surgery in the outpatient setting. Also recommend outpatient follow-up with hematology to further evaluate hypercoagulability workup if not already completed. Continue to hold Eliquis until cleared per vascular surgery. J unctional rhythm resolved with holding Coreg, Cardizem, and [...] holding Coreg, Cardizem, and amiodarone on discharge. Continue metoprolol 12.5 twice daily. Patient discharged to [facility] swing bed. Case discussed with collaborating physician Dr. Montenegro. [...] Discharge Date 10/13/2023 Patient Instructions Discharge to [facility]. Contact your primary care provider for [...] up appointment with cardiology. Where: [address] [facility] [address] [facility] [place] [address]- Follow Up with KELLIE BENITES When Within 5 to 7 days Why: Call for follow-up appointment with your primary care provider. Where: [address] [facility] [address] [phone] Follow Up with JACINTA MARIANO MD, [facility], Surgery, Vascular Surgeons When In 1 week Why: Call for follow up appointment with vascular surgery. Where: [address] [facility] [address] [facility] [place] [address] [phone] Follow Up with SANG PARSONS MD When In 2 weeks Why: Call for appointment with hematology for further evaluation of recurrent blood clots. Where: [address] [place] [address] [place] [address] [phone] Follow Up Appointments Transfer of Care OT [...] Score No qualifying data available. Discharge Disposition [facility] Bed Information Provided To Patient and facility Time Spent >30 minutes spent planning, charting/chart review, and educating on discharge. Digitally Signed by NHI BENJAMIN on 10/13/2023 12:03 PM Digitally Signed by NHI BENJAMIN on 10/13/2023 03:03 PM [facility] [id number] Note Date of Service 10/12/2023 Chief Complaint weakness weakness Subjective Patient is a 68-year-old male with past medical history of DVT, previous IVC filter which was subsequently removed, a flutter on Eliquis and amiodarone, diabetes, CKD, aortic valve replacement, obesity, who presented to [place] emergency department on 10/07/2023 for complaints of [...] was later discontinued. Patient was transferred to [facility] for continued treatment evaluation. Interventional [...] Awaiting PT evaluation. Patient likely discharge to [facility] if accepted and pre-CERT obtained. Plan [...] pulses intact. NEURO: Sensation grossly intact SKIN: [place], warm, dry. Large hematoma remains to right [...] repair in the emergency department. [facility]. -Hemoglobin significantly [...] by NHI BENJAMIN on 10/12/2023 02:13 PM [facility] [id number] Note Date of Service 10/12/2023 Chief Complaint weakness weakness Subjective Patient is a 68-year-old male with past medical history of DVT, previous IVC filter which was subsequently removed, a flutter on Eliquis and amiodarone, diabetes, CKD, aortic valve replacement, obesity, who presented to [place] emergency department on 10/07/2023 for complaints of [...] was later discontinued. Patient was transferred to [facility] for continued treatment evaluation. Interventional [...] Awaiting PT evaluation. Patient likely discharge to [facility] bed if accepted and pre-CERT obtained. Plan of [...] pulses intact. NEURO: Sensation grossly intact SKIN: [place], warm, dry. Large hematoma remains to right [...] repair in the emergency department. [facility]. -Hemoglobin significantly [...] by NHI BENJAMIN on 10/12/2023 02:13 PM [facility] [id number] Consult note Date of Service October 12, [...] Domestic Concerns: None. Living situation: Home/Independent. 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 Current HomeTreatments Oxygen therapy, CPAP. Professional Skilled Services or Special Community Resources None., 02/28/2021 Nutrition/Health Type of diet: Just started seeing nutrionist at [facility], doesn't eat much fruits or veggies. Drinks [...] DAYANA TOMLINSON MD on 10/12/2023 12:52 PM [facility] [id number] Progress note Date of Service 10/12/2023 Subjective [...] AM Digitally Signed by NEPTALI LIZAMA MD [facility] [id number] Note Reason for Consultation Admission From: Home [...] QUIN Saul October on 10/11/2023 04:25 PM [facility] [id number] Cardiology Consult note Date of Service 10/11/2023 Reason for Consultation Junctional rhythm Referring Physician Dr. Danie Alberto MD History of Present Illness Patient is a 68-year-old Gambian-speaking male with a past medical history of [...] these injuries he was subsequently transferred to [facility] on 10/07/2023 for further evaluation. During his admission to [facility] on 10/09 rapid response was called due [...] heart rate then we will consider consulting EPMelida Alcala has been held in light of left [...] Domestic Concerns: None. Living situation: Home/Independent. 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 Current HomeTreatments Oxygen therapy, CPAP. Professional Skilled Services or Special Community Resources None., 02/28/2021 Nutrition/Health Type of diet: Just started seeing nutrionist at [facility], doesn't eat much fruits or veggies. Drinks [...] JAQUELIN WORTHY MD on 10/11/2023 01:39 PM [facility] [id number] Note Date of Service 10/11/2023 Chief Complaint Bradycardia Subjective Patient is a 68-year-old male with past medical history of DVT, previous IVC filter which was subsequently removed, a flutter on Eliquis and amiodarone, diabetes, CKD, aortic valve replacement, obesity, who presented to [place] emergency department on 10/07/2023 for complaints of [...] was later discontinued. Patient was transferred to [facility] for continued treatment evaluation. Interventional [...] pulses intact. NEURO: Sensation grossly intact SKIN: [place], warm, dry PSYCH: alert and oriented x [...] repair in the emergency department. [facility]. -Hemoglobin significantly [...] collaborating physician Dr. Alberto. Collaborative Care Team [facility] Visit by Nhi Benjamin APRN-ENDOSCOPY TECH. Care discussed and coordinated by the entire care team under my direction. d/w Dr Moraes from IR; femoral clot appears to be chronic in appearance. Will monitor periodically, but no strong indication in my perspective to force the issue of anticoagulation in light of this very large hematoma. Appreciate cardiology input for bradycardia. Will need SNF at [place]. danie alberto md [facility] Digitally Signed by NHI BENJAMIN on 10/11/2023 02:11 PM Digitally Signed by DANIE ALBERTO MD FACP on 10/11/2023 05:25 PM [facility] [id number] Palliative care Progress note Full consult note to follow Lengthy goals of care discussion held with the patient. He request to change CODE STATUS to DNR CCAokay to intubate for a time-limited trial. I was able to update the patient's son over the phone. Patient's son is his legal next of kin. Reports he is also financial and medical power of assistant city attorney but unfortunately we do not have that paperwork on file. Updated nursing, primary team. Digitally Signed by ELVIE MARQUEZ MD on 10/11/2023 01:36 PM [facility] [id number] Palliative care Consult note Date of Service 10/11/2023 Reason for Consult positive palliative care screen Participants in Discussion Jadon, the patient History of Present Illness Mr. Alvarez is a 68-year-old, Gambian-speaking male with past medical history of DVT, [...] code there is no healthcare power of assistant city attorney on file There is no living will on file Responsible family: Romina, son: [phone] According to Jadon, he is already completed a living will. He has not completed healthcare power of assistant city attorney. He has 1 child and his a year ago. As such, Romina would be his legal next of kin. He does want him to be his surrogate decision maker in the event that he loses capacity. As such, healthcare power of assistant city attorney is not necessary. He does also indicate that he would want his friend, Braxton, to be his surrogate decision-maker. I offered to complete healthcare power of assistant city attorney paperwork while in the hospital but [...] designated him healthcare and financial power of assistant city attorney. Unfortunately, we do not have that [...] Domestic Concerns: None. Living situation: Home/Independent. 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 Current HomeTreatments Oxygen therapy, CPAP. Professional Skilled Services or Special Community Resources None., 02/28/2021 Nutrition/Health Type of diet: Just started seeing nutrionist at [facility], doesn't eat much fruits or veggies. Drinks [...] ELVIE MARQUEZ MD on 10/11/2023 02:23 PM [facility] [id number] Cardiology Consult note Date of Service 10/11/2023 Reason for Consultation Junctional rhythm Referring Physician Dr. Danie Alberto MD History of Present Illness Patient is a 68-year-old Gambian-speaking male with a past medical history of [...] these injuries he was subsequently transferred to [facility] on 10/07/2023 for further evaluation. During his admission to [facility] on 10/09 rapid response was called due [...] rate then we will consider consulting EP. Eliquis has been held in light of [...] Domestic Concerns: None. Living situation: Home/Independent. 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 Current HomeTreatments Oxygen therapy, CPAP. Professional Skilled Services or Special Community Resources None., 02/28/2021 Nutrition/Health Type of diet: Just started seeing nutrionist at [facility], doesn't eat much fruits or veggies. Drinks [...] JAQUELIN WORTHY MD on 10/11/2023 01:39 PM [facility] [id number] Note* Exam Date Time Procedure Performing Provider Status 10/11/23 6:29 AM VL Venous US/Doppler One Leg (for DVT). Auth (Verified) [facility] 03-31-2024 Nurse Progress note Patient is refusing [...] Mally Bailey RN on 10/10/2023 10:11 PM [facility] [id number] NoteATRIAL FIBRILLATION WITH SLOW VENTRICULAR RESPONSE NONSPECIFIC INTRAVENTRICULAR CONDUCTION DELAY Electronic Signature: BONNIE CRAWFORD MD 10/11/2023 20:29:13[facility] 03-31-2024 Note Date of Service 10/10/2023 Chief Complaint Constipation Subjective Patient is a 68-year-old male with past medical history of DVT, previous IVC filter which was subsequently removed, a flutter on Eliquis and amiodarone, diabetes, CKD, aortic valve replacement, obesity, who presented to [place] emergency department on 10/07/2023 for complaints of [...] was later discontinued. Patient was transferred to [facility] for continued treatment evaluation. Interventional [...] pulses intact. NEURO: Sensation grossly intact SKIN: [place], warm, dry PSYCH: alert and oriented x [...] repair in the emergency department. [facility]. -Hemoglobin significantly [...] collaborating physician Dr. Alberto. Collaborative Care Team [facility] Shared/split visit with Nhi Benjamin APRN-ENDOSCOPY TECH. Patient seen and examined independently. Care discussed and coordinated by the entire care team under my direction. Patient continues to slowly improve. Will add mag citrate and suppository. Decrease carvedilol dose. Will put on tele 24h for bradycardia. 1u pRBC today. Repeat US tomorrow. Will need SNF placement. danie alberto md [facility] Digitally Signed by NHI BENJAMIN on 10/10/2023 02:24 PM Digitally Signed by DANIE ALBERTO MD FACP on 10/10/2023 02:30 PM [facility] [id number] Nurse Progress note Patient's vitals at time of blood transfusion end were abnormal. Rapid response called. 15 minute-post transfusion vitals delayed. Digitally Signed by Natasha Abraham RN on 10/10/2023 11:44 AM [facility] [id number] NoteSinus or ectopic atrial bradycardia Nonspecific intraventricular conduction delay Electronic Signature: BONNIE CRAWFORD MD 10/11/2023 20:28:05[facility] 03-29-2024 Interventional radiology Consult note Chart reviewed [...] consider embolization. - Dr. Navarro Shukla is rn occupational health until Wednesday 0800 hrs. Available via pager (hoop machine operator) and Messenger - Hold Eliquis (aflutter [...] Vascular & Interventional Radiology [facility] Stio Messenger [phone]:Pager [phone]: Charles [email or web address] [phone]: [facility] (01/02) [phone]: [facility] Office (-, 02-12) [phone]: [facility] Office Fax IR Call Schedule (copy & paste): [email or web address] Realtime/Link/view?[id number] Digitally Signed by KATIUSKA CRYSTAL MD on 10/08/2023 09:03 AM [id number] History and physical note Date of Service 10/07/2023 Chief Complaint Hematoma History of Present Illness 68-year-old male with a history of DVT had an IVC filter which was then subsequently removed, atrial flutter on Eliquis and amiodarone, diabetes, CKD, aortic valve replacement, obesity, and a mechanical fall and bumped his right lower extremity so he went to the emergency department at [facility] emergency department CT of the right femur [...] concern of cellulitis and was transferred to [facility] Upon arrival to the floor [...] type 2 (E11.9 - ICD-10-CM) Facial laceration ([id number] - PNED) Heart failure (I50.9 - ICD-10-CM) [...] Plan was to have patient transferred to [facility] for further evaluation. Hemoglobin began trending down. There was concern that this was due to the hematoma. His legs are edematous at baseline however there was increasing edema to right lower extremity. Hemoglobin was 12.4 on admission. On day of discharge to [facility] hemoglobin was 6.5 and patient received 1 PRBC. He is on anticoagulation for atrial flutter. This has been held. There was concern for development of cellulitis to right lower extremity. He was started on ceftriaxone. Patient is optimized for transfer to [facility]. Review of Systems All pertinent positive and [...] Domestic Concerns: None. Living situation: Home/Independent. 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 Current HomeTreatments Oxygen therapy, CPAP. Professional Skilled Services or Special Community Resources None., 02/28/2021 Nutrition/Health Type of diet: Just started seeing nutrionist at [facility], doesn't eat much fruits or veggies. Drinks [...] FRANCY ELIZABETH MD on 10/07/2023 11:12 PM [facility] [id number] Hospital Discharge instructions Patient Education 10/07/2023 15:14:13 Blood Transfusion, Adult, Care After, Ktix-te-Lfma Blood Transfusion, Adult, Care After This sheet gives you information about how to care for yourself after your procedure. Your doctor may also give you more specific instructions. If you have problems or questions, contact your doctor. Follow these instructions at home: Take wuxd-tgp-powzbpq and prescription medicines only as told by [...] there is no soapand water, use hand life science research assistant. ?Change your bandage as told by your [...] 07/19/2015 Document Revised: 11/02/2018 Document Reviewed: 02/19/2017 [employer] Patient Education 2020 [employer]. Follow Up Care 10/03/2023 15:44:03 With:KELLIE BENITESENDOSCOPY TECH Address: [address] [place] [address] [place] [address]- [phone] When:2-4 days [facility] 03-28-2024 Evaluation + Plan noteExtracted from: Title:History and Physical Author:FRANCY ELIZABETH Date:10/07/23 68-year-old male is presenti with 2 significant large right lower extremity [...] Appointments Appointment Date:10/22/2023 08:30:00 AM Scheduled Provider: Location:[facility] Appointment Type:NUT Diet Visit Individual Appointment Date:10/22/2023 09:30:00 AM Scheduled Provider:KELLIE BENITES Location:[facility] Appointment Type:PC OV Appointment Date:12/30/2023 09:00:00 AM Scheduled Provider: Location:[facility] Appointment Type:MEDS - Diabetic Individual Visit Future Scheduled Tests Laboratory* Basic Metabolic Panel 02/13/23 * Prostate Specific Antigen 02/13/23 * Prostate Specific Antigen 10/08/22 * Complete Blood Count 10/08/22 * Lipid Profile 10/08/22 * Albumin/Creatinine Ratio, Random Urine 06/11/23 * Complete Metabolic Panel 10/08/22 [facility] 03-27-2024 Note Date of Service 10/06/2023 Chief [...] Discussed with collaborator sending patient over to [facility] for orthopedic consult and he was agreeable. [...] Result Date: October 06, 2023 Verified By: Shmuel_zeb SHERRYDarrel CLINICAL STATEMENT: IMPRESSION: 1. Large hematoma [...] Date: October 03, 2023 Verified By: SHAYNA ODMINGUEZ MD CLINICAL STATEMENT: IMPRESSION: No acute traumatic [...] to evaluate and treat - following. director field services following for discharge planning needs. Patient was accepted by [facility] but now transferring to [facility]. 2. Hematoma of leg Acute, new onset, worsening with multiple blisters today. Transfer to [facility] for [facility] consult. Eliquis on hold. 3. [...] patient, discussed plan of care with nursing, psychosocial rehabilitation counselor and therapy, collaborating with physician, and documenting in chart. Digitally Signed by WU WADSWORTH on 10/06/2023 06:28 PM [facility]03-27-2024 Note ORIGINAL EXAMINATION: CT OF THE [...] Sign Date: 10/06/2023 5:43:23 PM Ordering Provider: [facility]03-27-2024 Note. MICRO - Microbiology PROCEDURE: Urine Culture [...] Locations *1: This test was performed at: [facility], [address] [place] [address], [facility] , [facility] ([place])10-05-2023 Note Date of Service 10/05/2023 Chief Complaint [...] worked with therapy. He feels that the [place] is working better for his pain than [...] to evaluate and treat - following. director field services following for discharge planning needs. Referral sent to [facility] - auth pending. 2. Hematoma of [...] patient, discussed plan of care with nursing, psychosocial rehabilitation counselor and therapy, collaborating with physician, and documenting in chart. Digitally Signed by WU WADSWORTH on 10/05/2023 12:39 PM [facility]03-25-2024 Evaluation + Plan noteExtracted from: Title:History and Physical Author:WU WADSWORTH Date:10/04/23 1. Weakness Acute, new onset, s/p mechanical fall at home with forehead laceration and right lower extremity injury. Consult placed to PT and OT to evaluate and treat. director field services following for discharge planning needs. 2. [...] patient, discussed plan of care with nursing, psychosocial rehabilitation counselor and therapy, collaborating with physician, and documenting in chart. Future Appointments Appointment Date:10/22/2023 08:30:00 AM Scheduled Provider: Location:[facility] Appointment Type:NUT Diet Visit Individual Appointment Date:10/22/2023 09:30:00 AM Scheduled Provider:KELLIE BENITES Location:[facility] Appointment Type:PC OV Appointment Date:12/30/2023 09:00:00 AM Scheduled Provider: Location:[facility] Appointment Type:MEDS - Diabetic Individual Visit Future Scheduled Tests Laboratory* Basic Metabolic Panel 02/13/23 * Prostate Specific Antigen 02/13/23 * Prostate Specific Antigen 10/08/22 * Complete Blood Count 10/08/22 * Lipid Profile 10/08/22 * Albumin/Creatinine Ratio, Random Urine 06/11/23 * Complete Metabolic Panel 10/08/22 [facility] 03-25-2024 Note Date of Service 10/04/2023 Chief Complaint pt had witnessed fall. hit head on door handle. pt LOC twice in squad. History of Present Illness Patient is a 68-year-old male, who follows with Kellie Benites CNP with a past medical history significant for atrial flutter, heart failure, type 2 diabetes mellitus, and morbid obesity, presented to [facility] emergency department with the chief complaint of [...] to evaluate and treat. We will consult psychosocial rehabilitation counselor for discharge planning needs. Repeat CBC and [...] and OT to evaluate and treat. director field services following for discharge planning needs. 2. [...] patient, discussed plan of care with nursing, psychosocial rehabilitation counselor and therapy, collaborating with physician, and documenting [...] Domestic Concerns: None. Living situation: Home/Independent. 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 Current HomeTreatments Oxygen therapy, CPAP. Professional Skilled Services or Special Community Resources None., 02/28/2021 Nutrition/Health Type of diet: Just started seeing nutrionist at [facility], doesn't eat much fruits or veggies. Drinks [...] Full Code, Constant Order Digitally Signed by WU WADSWORTH on 10/04/2023 10:27 AM [facility]03-24-2024 Respiratory therapy Hospital Progress note Pt [...] by Amanda Velásquez on 10/03/2023 11:39 PM [facility]03-24-2024 Note ORIGINAL EXAMINATION: TWO XRAY VIEWS [...] Sign Date: 10/03/2023 7:14:25 PM Ordering Provider: [facility]03-24-2024 Note Sinus rhythm Prolonged GA interval Nonspecific intraventricular conduction delay Electronic Signature: ALMAS PEREA DO 10/03/2023 18:08:38[facility] 03-24-2024 Note ORIGINAL EXAMINATION: TWO XRAY [...] Sign Date: 10/03/2023 5:35:14 PM Ordering Provider: [facility]03-24-2024 Note ORIGINAL EXAMINATION: ONE XRAY VIEW OF [...] Sign Date: 10/03/2023 5:39:25 PM Ordering Provider: [facility]03-24-2024 Note ORIGINAL EXAMINATION: CT OF THE CERVICAL [...] Sign Date: 10/03/2023 5:35:35 PM Ordering Provider: [facility]03-24-2024 Note ORIGINAL EXAMINATION: CT OF THE FACE [...] Sign Date: 10/03/2023 5:32:03 PM Ordering Provider: [facility]03-24-2024 Note ORIGINAL EXAMINATION: CT OF THE HEAD [...] Sign Date: 10/03/2023 5:29:10 PM Ordering Provider: [facility]03-24-2024 Note Atrial fibrillation Paired ventricular premature complexes Nonspecific T abnrm, anterolateral leads Borderline ST elevation Artifact in lead(s) I,II,III,aVR,aVL,aVF,V1,V2,V3,V4,V5,V6 Compared to ECG at 01/26/2023 10:04:05 Electronic Signature: ALMAS PEREA DO 10/03/2023 16:19:52[facility] 01-12-2024 Note ORIGINAL EXAMINATION: SCREENING ULTRASOUND [...] 3.0-3.4 cm. Reference: J Vasc Surgery 2009 Oct;50(4 Supplemental):S2-49 Interpreted by: Reginaldo Owen MD Preliminary Report By: Reginaldo Owen MD Electronically signed By Reginaldo Owen MD Dictated Date: 07/23/2023 12:47:55 PM Prelim Date: 07/23/2023 12:51:23 PM Sign Date: 07/23/2023 12:51:23 PM Ordering Provider: [facility]ES[facility] Hospital Discharge instructions Patient Education 03/16/2023 [...] Document Reviewed: 06/29/2014 ExitCare Patient Information 2015 Subject Company. This information is not intended to replace [...] until you are awake and alert. Take onix-ril-jpgizvw and prescription medicines only as told by [...] 04/18/2014 Document Revised: 06/10/2018 Document Reviewed: 10/17/2016 [employer] Patient Education 2020 [employer]. Follow Up Care 03/02/2023 09:36:04 With:ANDREW FREEDMAN MD Address: [address] [facility] [address] [facility] [place] [address]- [phone] When:04/15/2023 09:30:00 Comments:THIS APPOINTMENT WILL BE WITH GERMANIA AG CNP [facility] 09-05-2023 Summary of episode note Discharge Instructions Thank you for allowing [facility] to assist you with your healthcare needs. The following is importantdischarge information regarding your hospital visit. Your Care Team KELLIE BENITES What to do next Scheduled Follow-Up Appointments Appointment Type When With Where Contact InformationDB Diabetic Individual Visit (AOH) 04/07/2023 09:00 AM EDT [place] [facility] Visits [phone] CV OV 04/15/2023 09:30 AM EDT GAVINO AG [facility] PC OV 07/09/2023 09:00 AM KELLIE SHELL [id number] [place] [address] PC OV 07/13/2023 09:00 AM KELLIE SHELL [address] [address] Follow Up Appointments Follow Up with ANDREW FREEDMAN MD When 04/15/2023 09:30 AM EDT Why: THIS APPOINTMENT WILL BE WITH GERMANIA AG CNP Where: [address] [facility] [address] [facility] [place] [address] The Following Activity and Diet Have Been [...] you. Allergies Nuprin (Unknown) misc non-codified allergy Medications [...] Two (2) times a day Pickup at [facility] Unchanged amiodarone (amiodarone 200 mg oral [...] abdomen, thigh, or upper arm Pharmacy Information [facility]: [address] [place] [address] [phone] What How Much When Comments Stop Taking [...] or retail pharmacies. Medication Leaflets bumetanide (oral/injection) (bycourtney krueger) What is the most important information I [...] may report side effects to FDA at 3-558-TGL-5834. What other drugs will affect bumetanide? Bumetanide [...] drugs may affect bumetanide, including prescription and yjdr-phy-tdpgnph medicines, vitamins, and herbal products. Not all [...] to ensure that the information provided by [employer]. ('[employer]') is accurate, up-to-date, and complete, but no guarantee is made to that effect. Drug information contained herein may be time sensitive. [employer] information has been compiled for use by healthcare practitioners and consumers in the [place] and therefore [employer] does not warrant that uses outside of the [place] are appropriate, unless specifically indicated otherwise. [employer] drug information does not endorse drugs, diagnose patients or recommend therapy. [employer] drug information isan informational resource designed to [...] effective or appropriate for any given patient. [employer] does not assume any responsibility for any aspect of healthcare administered with the aid of information [employer] provides. The information contained herein is not intended to cover all possible uses, directions, precautions, warnings, drug interactions, allergic reactions, or adverse effects. If you have questions about the drugs you are taking, check with your doctor, nurse or pharmacist. Copyright [employer]. Version: 9.01. Revision Date: 02/11/2023. Education Materials [...] Document Reviewed: 06/29/2014 ExitCare Patient Information 2015 Subject Company. This information is not intended to replace [...] until you are awake and alert. Take ecyf-cpk-dnqvlwd and prescription medicines only as told by [...] 04/18/2014 Document Revised: 06/10/2018 Document Reviewed: 10/17/2016 Elsevier Patient Education 2020 [employer] Additional Information VACCINATE! IT SAVES LIVES! Members of the community who have not yet received the COVID-19 vaccine and would like to receive it can visit one of [facility] vaccine clinics. There are many vaccine clinic locations within the [facility]. For locations and available times, please visit https://gettheshot.coronavirus.[place].gov/. It is important to note that some COVID mobile vaccine clinics are held outdoors and may be canceled in rainy or stormy conditions. To learn more about pediatric vaccinations (ages 5-11), we invite you to visit the [employer] webpage. https://www.NewLeaf Symbioticss.org/pages/0486-Vgryb-Cwdluonbhsp-Ogtstldofd-Mvufv-Dbc stions.htmlTo learn more about the COVID-19 vaccine, we invite you to visit the CDC website for a list of frequently asked questions.https://www.cdc.gov/coronavirus/2019-ncov/vaccines/faq.html [facility] Patient Portal Access Instructions: Stay connected with your healthcare team and access your personal medical information anytime with the [facility] Patient Portal. Please follow the directions below to create your [facility] account: 1.Access the email account you provided upon registration to the hospital/physician office.2.Look for an invitation email from [facility].3.Open the email and access the invitation link: AcceptInvitation to [facility].4.Fill in the required breen to create your account. To access your account, visit [email or web address]. Click the blue button labeled Access Patient [...] who you will allowto register on the [facility] [facility] Patient Portal for access to your information. You can also access the [facility] Patient Portal on the [facility] priscilla. Simply click on Patient Portal and then log into your account. If you would like to receive a full copy of your medical records, please contact the [facility] Medical Records Department by calling [phone], Wednesday through Wednesday between 8 a.m. and [...] Call your local pharmacy or go to http://[employer]/0S9De9d to find one close to you.3.Make use of household items: Use cat litter or old coffee grounds to dispose medications if other options arenot available. Mix your drugs with these household products, seal them in an airtight container andthrow it into the garbage. Call [facility]: [phone] to be sure your drugs can be [...] aware that I should contact my doctor. 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 [...] MILA TOMLINSON MD on 03/16/2023 09:56 AM [facility] [id number] Discharge summary Date of Service 03/16/2023 Discharge [...] WITH GERMANIA AG CNP Where: [address] [facility] [address] [facility] [place] [address]- [phone] Follow Up Appointments No qualifying data available. [...] MILA TOMLINSON MD on 03/16/2023 09:56 AM [facility] [id number] Note* Exam Date Time Procedure Performing Provider Status 03/16/23 9:33 AM Cardiac Catheterization -CV Auth (Verified) [facility] 07-18-2023 Hospital Discharge instructions Patient Education 01/26/2023 [...] until you are awake and alert. Take cqew-kpd-lxfniaq and prescription medicines only as told by [...] 04/18/2014 Document Revised: 06/10/2018 Document Reviewed: 10/17/2016 [employer] Patient Education 2020 [employer]. 01/26/2023 11:00:49 3- Cardioversion (04/2018)(CUSTOM) CARDIOVERSION Discharge [...] Document Reviewed: 06/29/2014 ExitCare Patient Information 2015 Subject Company. This information is not intended to replace advicegiven to you by your health care provider. Make sure you discuss any questions you have with your health care provider. Follow Up Care 01/22/2023 14:16:34 With:KELLIE BENITES Address: [address] [place] [phone] [phone] When: Unknown Comments:Follow-up as scheduled [facility] 07-18-2023 Procedure note Date of Service January [...] aheart rate of 87 bpm. Once a INTERNAL CORROSION SPECIALIST administered an IV anesthetic agent and the [...] by OLIVE HOLLAND on 01/26/2023 10:10 AM [facility] [id number] Discharge summary Date of Service January 26, [...] Patient underwent successful direct-current cardioversion with subsequent hoahaoism of normal sinus rhythm. Patient tolerated the [...] by OLIVE HOLLAND on 01/26/2023 10:13 AM [facility] [id number] Summary of episode note Discharge Instructions Thank you for allowing [facility] to assist you with your healthcare needs. [...] OV 03/02/2023 09:00 AM EDT GAVINO AG [facility] CV DB Diabetic Individual Visit (AOH) 04/07/2023 09:00 AM CATHERINET [place] Diet Visits [phone] PC OV 07/09/2023 09:00 AM EST KELLIE BENITES [address] [address] Follow Up Appointments Follow Up with KELLIE BENITES When Why: Follow-up as scheduled Where: [address] [place] [phone] The Following Activity and Diet Have Been [...] until you are awake and alert. Take zrsv-nuk-zbbdgms and prescription medicines only as told by [...] 04/18/2014 Document Revised: 06/10/2018 Document Reviewed: 10/17/2016 [employer] Patient Education 2020 [employer]. CARDIOVERSION Discharge instructions ACTIVITY/SAFETY Please refrain from [...] Document Reviewed: 06/29/2014 ExitCare Patient Information 2015 Subject Company. This information is not intended to replace advicegiven to you by your health care provider. Make sure you discuss any questions you have with your health care provider. Additional Information VACCINATE! IT SAVES LIVES! Members of the community who have not yet received the COVID-19 vaccine and would like to receive it can visit one of [facility] vaccine clinics. There are many vaccine clinic locations within the [facility]. For locations and available times, please visit https://gettheshot.coronavirus.[place].gov/. It is important to note that some COVID mobile vaccine clinics are held outdoors and may be canceled in rainy or stormy conditions. To learn more about pediatric vaccinations (ages 5-11), we invite you to visit the [facility] webpage. https://www.[facility].org/pages/5101-Pnsse-Egtuqhyzlkd-Zkjfikebnj-Lkjne-Bup stions.htmlTo learn more about the COVID-19 vaccine, we invite you to visit the CDC website for a list of frequently asked questions.https://www.cdc.gov/coronavirus/2019-ncov/vaccines/faq.html [facility] Patient Portal Access Instructions: Stay connected with your healthcare team and access your personal medical information anytime with the [facility] Patient Portal. Please follow the directions below to create your [facility] account: 1.Access the email account you provided upon registration to the hospital/physician office.2.Look for an invitation email from [facility].3.Open the email and access the invitation link: AcceptInvitation to [facility].4.Fill in the required breen to create your account. To access your account, visit [email or web address]. Click the blue button labeled Access Patient Portal and then log in with the username and password that you created in the steps above. You will be able to view your test results, lab results, a summary of your visits, upcoming appointments and more. There is also a convenient messaging option where you can send secure messages to your p TrustAlertvider. In addition, you will have the ability to download any documents or summaries to your computer and/or send the information securely to a physician. Remember that your healthcare information is confidential, so carefully consider who you will allowto register on the [facility] Patient Portal for access to your information. You can also access the [facility] Wiki[facility]sChart Patient Portal on the [facility] Yeddawhere priscilla. Simply click on Patient Portal and then log into your account. If you would like to receive a full copy of your medical records, please contact the [facility] Medical Records Department by calling [phone], Wednesday through Wednesday between 8 a.m. and [...] Call your local pharmacy or go to http://Thumbs [email or web address] Securities/4O6De2r to find one close to you.3.Make use of household items: Use cat litter or old coffee grounds to dispose medications if other options arenot available. Mix your drugs with these household products, seal them in an airtight container andthrow it into the garbage. Call [facility]: [phone] to be sure your drugs can be [...] aware that I should contact my doctor. 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 Patient tolerated the [...] by OLIVE HOLLAND on 01/26/2023 10:13 AM [id number] Procedure note Date of Service January 26, [...] aheart rate of 87 bpm. Once a INTERNAL CORROSION SPECIALIST administered an IV anesthetic agent and the [...] by OLIVE HOLLAND on 01/26/2023 10:10 AM [facility] [id number] Anesthesiology Consult note Patient: JADON ALVAREZ Age: [...] Allergies: Allergic Reactions (Selected) Severity Not Documented Misc non-codified allergy- No reactions were documented. Nuprin- Unknown., Allergies (2) ActiveReaction [facility] non-codified allergyNone Documented NuprinUnknown Current medications: (Selected) [...] Medical Left breast abscess / SNOMED CT 75543187 / Confirmed AORTIC VALVE DISEASE / SNOMED CT 92535619 / Confirmed Atrial flutter / SNOMED CT 7349214 / Confirmed CKD stage 3 due to type 2 diabetes mellitus / SNOMED CT 8360348413 / Confirmed 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 2 diabetes mellitus / SNOMED CT 9595589981 / Confirmed Diabetes mellitus type 2 / SNOMED CT 530505941 / Confirmed SOB (shortness of breath) / SNOMED CT 562584749 / Confirmed Lower extremity edema / SNOMED CT 186803054 / Confirmed Acute embolism and thrombosis of deep vein of left distal leg / SNOMED CT 6641665694 / Confirmed Inclusion cyst / SNOMED CT 2328155630 / Confirmed Heart failure / SNOMED CT 838278193 / Confirmed Heart murmur / SNOMED CT 131787016 / Confirmed Heart valve disorder / SNOMED CT 1574755 / Confirmed High blood pressure / SNOMED CT 26758854 / Confirmed Right hip pain / SNOMED CT 15907132 / Confirmed S/P AVR (aortic valve replacement) / SNOMED CT 8295322345 / Confirmed Intraventricular conduction delay / SNOMED CT 0492018 / Confirmed Enlarged prostate / SNOMED CT 582570985 / Confirmed Normocytic anemia / SNOMED CT 551472014 / Confirmed Obesity / SNOMED CT 6993208136 / Confirmed Incarcerated femoral hernia / SNOMED CT 578190748 / Confirmed Recurrent right inguinal hernia / SNOMED CT 7983343044 / Confirmed Renal mass. Left, 6.6-cm, LP, posterior. *MMP-morbid obesity, CKD, DM, HTN, CHF, DVT/PE. *BT-Coumadin, ASA. 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 Family History: Diabetes mellitus Mother Cancer Brother Renal cancer Brother Sleep apnea Sister Procedure history: Aortic valve (10117450). Comments: 11/02/2017 8:37 EDT - QUIN ALANIS pig valve Colectomy (45508304). IVC - Insertion of inferior vena caval filter (3020060407). IVC - Removal of inferior vena caval filter (545564332). Repair of inguinal hernia (40264565). Comments: 02/28/2021 11:24 EDT - Anabela Gonzales RN Right x3 Bladder (546994728). 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 Assessment and Plan [place] [employer] Anesthesiologists (ASA) physical status classification: Class IV. Anesthetic Preoperative Plan Premedication: intravenous. Anesthetic technique: MAC. Induction: intravenously. Maintenance airway: Mask. Special techniques. Special Monitoring. Postoperative pain management: Per surgeon. Risks discussed. Informed consent: signed by patient. Beta Maren Digitally Signed by WINSOME LEDBETTER MD on 01/26/2023 09:55 AM [facility] CenterXplwsazl18-06-2029 Hospital Discharge instructions Patient Education 01/04/2023 09:01:05 [...] a problem: Bleeding that soaks the dressing [place] fluid weeping from the wound Increased drainage [...] increased fatigue, or a loss of appetite 4679-6915 [employer]. [address] [place] [address]. All rights reserved. This information is not intended as a substitute for professional medical care. Always follow yourhealthcare professional's instructions. Follow Up Care 01/04/2023 08:12:33 With:KELLIE BENITES Address: [address] [place] [phone] When:2-4 days With:Go to emergency room if symptoms worsen Address:Unknown When:2-4 days [facility] 06-26-2023 Note Discharge Instructions Thank you for allowing [facility] to assist you with your healthcare needs. [...] KELLIE BENITES When Within 2-4 days Where: [address] [place] [address] [phone] Follow Up with Go to emergency room [...] may report side effects to FDA at 0-343-XGH-1401. What other drugs will affect cephalexin? Tell your doctor about all your other medicines, especially: metformin; or probenecid. This list is not complete. Other drugs may affect cephalexin, including prescription and tjov-xow-smnjsik medicines, vitamins, and herbal products. Not all [...] to ensure that the information provided by [employer]. ('[employer]') is accurate, up-to-date, and complete, but no guarantee is made to that effect. Drug information contained herein may be time sensitive. [employer] information has been compiled for use by healthcare practitioners and consumers in the [place] and therefore [employer] does not warrant that uses outside of the [place] are appropriate, unless specifically indicated otherwise. [employer] drug information does not endorse drugs, diagnose patients or recommend therapy. [employer] drug information isan informational resource designed to [...] effective or appropriate for any given patient. [employer] does not assume any responsibility for any aspect of healthcare administered with the aid of information [employer] provides. The information contained herein is not intended to cover all possible uses, directions, precautions, warnings, drug interactions, allergic reactions, or adverse effects. If you have questions about the drugs you are taking, check with your doctor, nurse or pharmacist. Copyright 3559-4706 [employer]. Version: 04.13. Revision Date: 07/15/2020. sulfamethoxazole and trimethoprim (oral/injection) [...] blood sodium or high potassium); porphyria, or ewqyysp-5-sruugplar dehydrogenase (G6PD) deficiency; or if you use [...] may report side effects to FDA at 0-462-YKM-7905. What other drugs will affect sulfamethoxazole and [...] sulfamethoxazole and trimethoprim. This includes prescription and lhvh-npn-qxugjmm medicines, vitamins, and herbal products. Not all [...] to ensure that the information provided by [employer] ('[employer]') is accurate, up-to-date, and complete, but no guarantee is made to that effect. Drug information contained herein may be time sensitive. [employer] information has been compiled for use by healthcare practitioners and consumers in the [place] and therefore [employer] does not warrant that uses outside of the [place] are appropriate, unless specifically indicated otherwise. [employer] drug information does not endorse drugs, diagnose patients or recommend therapy. [employer] drug information isan informational resource designed to [...] effective or appropriate for any given patient. [employer] does not assume any responsibility for any aspect of healthcare administered with the aid of information [employer] provides. The information contained herein is not intended to cover all possible uses, directions, precautions, warnings, drug interactions, allergic reactions, or adverse effects. If you have questions about the drugs you are taking, check with your doctor, nurse or pharmacist. Copyright 9930-7771 [employer]. Version: .. Revision Date: 03/10/2021. Education Materials Wound Care [...] a problem: Bleeding that soaks the dressing [place] fluid weeping from the wound Increased drainage [...] increased fatigue, or a loss of appetite 5951-0714 [employer]. [address] [place] [address]. All rights reserved. This information is not intended as a substitute for professional medical care. Always follow yourhealthcare professional's instructions. Additional Information VACCINATE! IT SAVES LIVES! Members of the community who have not yet received the COVID-19 vaccine and would like to receive it can visit one of [facility] vaccine clinics. There are many vaccine clinic locations within the [facility]. For locations and available times, please visit www.gettheshot.coronavirus.[place].gov/. It is important to note that some COVID mobile vaccine clinics are held outdoors and may be canceled in rainy or stormy conditions. To learn more about pediatric vaccinations (ages 5-11), we invite you to visit the [facility] webpage. https://www.[facility].org/pages/0990-Jlldh-Niusnvzgxws-Cvmqvytbhb-Vnbfo-Oac stions.htmlTo learn more about the COVID-19 vaccine, we invite you to visit the CDC website for a list of frequently asked questions. https://www.cdc.gov/coronavirus/2019-ncov/vaccines/faq.html [facility] Patient Portal Access Instructions: Stay connected with your healthcare team and access your personal medical information anytime with the [facility] Patient Portal. If you would like a full copy of your medical records please contact the [facility] Medical Records Department Wednesday through Wednesday between 8a.m. and 4:30p.m. Please follow the directions below to access the portal: 1.Access the email account you provided upon registration to the [facility].2.Look for an invitation email from [facility].3.Open the email and access the invitation link: Accept Invitation to [facility]4.Fill in the required breen to create your account. Sign into [email or web address] with your username and password that you [...] you will allow to register on the [facility] Patient Portal for access to your information. You can also access the [facility] Patient Portal on the [employer] priscilla. Simply click on Health Records under Blackboardta and then click on the [employer] logo. HOW TO SAFELY DISPOSE OF PRESCRIPTION [...] Call your local pharmacy or go to [email or web address] to find one close to you.3.Make use of household items: Use cat litter or old coffee grounds to dispose medications if other options arenot available. Mix your drugs with these household products, seal them in an airtight container andthrow it into the garbage. Call [facility]: [phone] to be sure your drugs can be [...] aware that I should contact my doctor. 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: Relationship to Patient: Witness Name/Signature: Date/Time: [facility]06-26-2023 Note ORIGINAL EXAMINATION: 2 XRAY VIEWS [...] Sign Date: 01/04/2023 9:33:34 AM Ordering Provider: LILIA [facility]06-26-2023 Note ORIGINAL EXAMINATION: 2 XRAY VIEWS OF [...] Sign Date: 01/04/2023 9:33:34 AM Ordering Provider: [facility]04-15-2022 Hospital Discharge instructions Patient Education 10/24/2021 14:20:40 Radiology- US Renal Biopsy 10/25/2019 (CUSTOM) [facility] Renal Biopsy Discharge Instructions CT Department [facility] Imaging Services [address] [place] [address] Today, you had a biopsy of your [...] 1 to 2 days following the procedure. Krrt-qyd-wxuqkdl pain medication should be used for pain [...] instruction below: For first 24 hours call [phone] After 24 hours, contact the physician who [...] until you are awake and alert. Take pkto-gre-pimpxkb and prescription medicines only as told by [...] 04/18/2014 Document Revised: 06/10/2018 Document Reviewed: 10/17/2016 [place] Patient Education 2020 [employer]. Follow Up Care 09/16/2021 12:03:43 With:Go to emergency room if symptoms worsen Address:Unknown When: Unknown With:MARLINE PENDLETON MD, [facility], Urology Service Address: When: Unknown Comments:Follow-up as scheduled [facility] Consult note Author Mirela Gandara [facility] Note Date/Time October 12, 2024 2:15 pm [facility] Medical Records Department [address] [place] [address] Counseling Note - Pharmacy 10/12/24 1414 MR#: [id number] Acct: [id number] Name: JADON ALVAREZ Kenia Rep #:[id number] 5 : 1955 69 From: Mirela Gandara PCP: Kathleen Herzog MD Status:ADM IN Y Location: [place] [address] Pharmacy [place] Med Reconciliation Pharmacy Service has performed discharge medication reconciliation for this patient upon transfer to [facility]. The patient's discharge medication list was reviewed [...] mg PO BID #20 tabs 10/12/24 10/12/24 5785 <Electronically signed by Mirela Gandara > Date _ Mirela Gandara Cosigner Signature (if applicable): Date CC: ~ Signed [facility] Work Phone: Evaluation + Plan note No data available for this section [facility] Evaluation + Plan note Future Appointments Appointment Date:06/26/2021 09:00:00 AM Scheduled Provider:KELLIE BENITES Location:[facility] Appointment Type: OV [facility] Evaluation + Plan note Future Appointments Appointment Date:07/03/2021 08:10:00 AM Scheduled Provider:YADIEL TORRES Location:[facility] Appointment Type: OV Future Scheduled Tests Radiology* CT Renal 06/26/21 [facility] Evaluation + Plan note Future Appointments Appointment Date:07/07/2021 08:30:00 AM Scheduled Provider:YADIEL TORRES Location:[facility] Appointment Type:PC OV [facility] Evaluation + Plan note Future Appointments Appointment Date:08/19/2021 02:30:00 PM Scheduled Provider: Location:[facility] Appointment Type:US Renal Diagnostic Tests Pending * FAYE (serum) 08/05/21 * Protein Electrophoresis Urine 08/05/21 Future Scheduled Tests Laboratory* Basic Metabolic Panel 08/16/21 Radiology* US Renal 08/19/21 [facility] Evaluation + Plan note Future Appointments Appointment Date:09/30/2021 11:00:00 AM Scheduled Provider: Location:[facility] Appointment Type:ACC POC Established Patient Future Scheduled Tests Laboratory* Basic Metabolic Panel 08/16/21 * APTT Panel 09/09/21 * Complete Blood Count 09/09/21 * Prothrombin Time - Panel 09/09/21 Radiology* US Biopsy Renal Left Mass Core 09/09/21 * XR Chest 2 Views (PA & Lateral) 10/07/21 [facility] Evaluation + Plan note Future Appointments Appointment Date:10/28/2021 09:00:00 AM Scheduled Provider: Location:[facility] Appointment Type:ACC POC Established Patient Appointment Date:11/24/2021 03:40:00 PM Scheduled Provider:MARLINE PENDLETON MD Location:UROLOGY Appointment Type:URO OV Talk Appointment Date:12/30/2021 09:00:00 AM Scheduled Provider: Location:[facility] Appointment Type:DB Diabetic Individual Visit Future Scheduled Tests Laboratory* Basic Metabolic Panel 08/16/21 * APTT Panel 09/09/21 * Complete Blood Count 09/09/21 * Prothrombin Time - Panel 09/09/21 Radiology* XR Chest 2 Views (PA & Lateral) 10/07/21 [facility] Evaluation + Plan note Future Appointments Appointment Date:11/06/2021 01:40:00 PM Scheduled Provider:YADIEL TORRES Location:[facility] Appointment Type:PC OV Appointment Date:11/07/2021 09:00:00 AM Scheduled Provider: Location:[facility] Appointment Type:ACC POC Established Patient Appointment Date:12/30/2021 09:00:00 AM Scheduled Provider: Location:[facility] Appointment Type:DB Diabetic Individual Visit Appointment Date:01/30/2022 11:20:00 AM Scheduled Provider:MARLINE PENDLETON MD Location:UROLOGY Appointment Type:URO OV 20 min Future Scheduled Tests Laboratory* Creatinine 02/02/22 * Basic Metabolic Panel 08/16/21 * APTT Panel 09/09/21 * Complete Blood Count 09/09/21 * Prothrombin Time - Panel 09/09/21 Radiology* XR Chest 2 Views (PA & Lateral) 10/07/21 * CT Abdomen w/ IV Contrast Only 02/02/22 [facility] Evaluation + Plan note Future Appointments Appointment Date:12/30/2021 09:00:00 AM Scheduled Provider: Location:[facility] Appointment Type:DB Diabetic Individual Visit Appointment Date:01/30/2022 11:20:00 AM Scheduled Provider:MARLINE PENDLETON MD Location:UROLOGY Appointment Type:URO OV 20 min Appointment Date:03/05/2022 02:00:00 PM Scheduled Provider:YADIEL TORRES Location:[facility] Appointment Type:PC OV Future Scheduled Tests Laboratory* Creatinine 02/02/22 * Basic Metabolic Panel 08/16/21 * APTT Panel 09/09/21 * Complete Blood Count 09/09/21 * Prothrombin Time - Panel 09/09/21 Radiology* XR Chest 2 Views (PA & Lateral) 10/07/21 * CT Abdomen w/ IV Contrast Only 02/02/22 [facility] Evaluation + Plan note Future Appointments Appointment Date:03/05/2022 02:00:00 PM Scheduled Provider:YADIEL TORRES Location:[facility] Appointment Type:PC OV Appointment Date:04/02/2022 09:00:00 AM Scheduled Provider: Location:[facility] Appointment Type:DB Diabetic Individual Visit Future Scheduled Tests Laboratory* Creatinine 02/02/22 * Basic Metabolic Panel 08/16/21 * APTT Panel 09/09/21 * Complete Blood Count 09/09/21 * Prothrombin Time - Panel 09/09/21 Radiology* XR Chest 2 Views (PA & Lateral) 10/07/21 * CT Abdomen w/ IV Contrast Only 01/15/22 [facility] Evaluation + Plan note Future Appointments Appointment Date:04/02/2022 09:00:00 AM Scheduled Provider: Location:[facility] Appointment Type:DB Diabetic Individual Visit Future Scheduled Tests Laboratory* Creatinine 02/02/22 * Basic Metabolic Panel 08/16/21 * APTT Panel 09/09/21 * Complete Blood Count 09/09/21 * Prothrombin Time - Panel 09/09/21 Radiology* XR Chest 2 Views (PA & Lateral) 10/07/21 * CT Abdomen w/ IV Contrast Only 01/15/22 [facility] Evaluation + Plan note Future Appointments Appointment Date:05/25/2022 08:00:00 AM Scheduled Provider: Location:[facility] Appointment Type:yyNM Myocard Spect R/S 2 Day S1 - Praveena Appointment Date:05/26/2022 08:30:00 AM Scheduled Provider: Location:[facility] Appointment Type:yyNM Myocard Spect R/S 2 Day S2 - Praveena Appointment Date:06/09/2022 02:00:00 PM Scheduled Provider:GAVINO AG Location[facility] Appointment Type:CV OV Appointment Date:07/07/2022 09:00:00 [...] CT Abdomen w/ IV Contrast Only 01/15/22 [facility] Evaluation + Plan note Future Appointments Appointment Date:05/26/2022 08:30:00 AM Scheduled Provider: Location:[facility] Appointment Type:yyNM Myocard Spect R/S 2 Day S2 - Praveena Appointment Date:06/09/2022 02:00:00 PM Scheduled Provider:GAVINO AG Location:[facility] Appointment Type:CV OV Appointment Date:07/07/2022 09:00:00 AM Scheduled Provider: Location:[facility] Appointment Type:DB Diabetic Individual Visit (AOH) Future Scheduled Tests Laboratory* Creatinine 02/02/22 * Basic Metabolic Panel 08/16/21 * APTT Panel 09/09/21 * Complete Blood Count 09/09/21 * Prothrombin Time - Panel 09/09/21 Radiology* XR Chest 2 Views (PA & Lateral) 10/07/21 * CT Abdomen w/ IV Contrast Only 01/15/22 [facility] Evaluation + Plan note Future Appointments Appointment Date:01/05/2023 09:00:00 AM Scheduled Provider: Location:[facility] Appointment Type:DB Diabetic Individual Visit (AOH) Appointment Date:01/08/2023 09:30:00 AM Scheduled Provider:KELLIE BENITES Location:[facility] Appointment Type:PC OV Follow Up Future Scheduled Tests Laboratory* Creatinine 02/02/22 * Prostate Specific Antigen 10/08/22 * Complete Blood Count 10/08/22 * Lipid Profile 10/08/22 * Complete Metabolic Panel 10/08/22 Radiology* CT Abdomen w/ IV Contrast Only 01/15/22 [facility] Evaluation + Plan note Future Appointments Appointment Date:01/20/2023 09:00:00 AM Scheduled Provider:GAVINO AG Location:[facility] Appointment Type:CV OV Appointment Date:04/07/2023 09:00:00 AM Scheduled Provider: Location:[facility] Appointment Type:DB Diabetic Individual Visit (AO) Appointment Date:07/09/2023 09:00:00 AM Scheduled Provider:KELLIE BENITES Location:[facility] Appointment Type:PC OV Future Scheduled Tests Laboratory* Creatinine 02/02/22 * Prostate Specific Antigen 10/08/22 * Complete Blood Count 10/08/22 * Lipid Profile 10/08/22 * Complete Metabolic Panel 10/08/22 Radiology* CT Abdomen w/ IV Contrast Only 01/15/22 [facility] Evaluation + Plan note Future Appointments Appointment Date:03/02/2023 09:00:00 AM Scheduled Provider:GAVINO AG Location:[facility] Appointment Type:CV OV Appointment Date:04/07/2023 09:00:00 AM Scheduled Provider: Location:[facility] Appointment Type:DB Diabetic Individual Visit (AO) Appointment Date:07/09/2023 09:00:00 AM Scheduled Provider:KELLIE BENITES Location:[facility] Appointment Type:PC OV Future Scheduled Tests Laboratory* Creatinine 02/02/22 * Basic Metabolic Panel 02/13/23 * Prostate Specific Antigen 02/13/23 * Prostate Specific Antigen 10/08/22 * Complete Blood Count 10/08/22 * Lipid Profile 10/08/22 * Complete Metabolic Panel 10/08/22 Radiology* CT Abdomen w/ IV Contrast Only 01/15/22 [facility] Evaluation + Plan note Future Appointments Appointment Date:03/16/2023 08:00:00 AM Scheduled Provider: Location:[facility] Appointment Type:CV Procedure - Heart Lab/Hybrid OR Appointment Date:04/07/2023 09:00:00 AM Scheduled Provider: Location:[facility] Appointment Type:DB Diabetic Individual Visit (AOH) Appointment Date:07/09/2023 09:00:00 AM Scheduled Provider:KELLIE BENITES Location:[facility] Appointment Type:PC OV Appointment Date:07/13/2023 09:00:00 AM Scheduled Provider:KELLIE BENITES Location:[facility] Appointment Type:PC OV Future Scheduled Tests Laboratory* Basic Metabolic Panel 02/13/23 * Prostate Specific Antigen 02/13/23 * Prostate Specific Antigen 10/08/22 * Complete Blood Count 10/08/22 * Lipid Profile 10/08/22 * Complete Metabolic Panel 10/08/22 [facility] Evaluation + Plan note Future Appointments Appointment Date:04/07/2023 09:00:00 AM Scheduled Provider: Location:[facility] Appointment Type:DB Diabetic Individual Visit (AOH) Appointment Date:04/15/2023 09:30:00 AM Scheduled Provider:GAVINO AG Location:[facility] Appointment Type:CV OV Appointment Date:07/09/2023 09:00:00 AM Scheduled Provider:KELLIE BENITES Location:[facility] Appointment Type:PC OV Appointment Date:07/13/2023 09:00:00 AM Scheduled Provider:KELLIE BENITES Location:[facility] Appointment Type:PC OV Future Scheduled Tests Laboratory* Basic Metabolic Panel 02/13/23 * Prostate Specific Antigen 02/13/23 * Prostate Specific Antigen 10/08/22 * Complete Blood Count 10/08/22 * Lipid Profile 10/08/22 * Complete Metabolic Panel 10/08/22 [facility] Evaluation + Plan note Future Appointments Appointment Date:07/07/2023 08:00:00 AM Scheduled Provider: Location:[facility] Appointment Type:DB Diabetic Individual Visit (AOH) Appointment Date:07/13/2023 09:00:00 AM Scheduled Provider:KELLIE BENITES Location:[facility] Appointment Type:PC OV Appointment Date:10/22/2023 09:30:00 AM Scheduled Provider:KELLIE BENITES Location:[facility] Appointment Type:PC OV Future Scheduled Tests Laboratory* Basic Metabolic Panel 02/13/23 * Prostate Specific Antigen 02/13/23 * Prostate Specific Antigen 10/08/22 * Complete Blood Count 10/08/22 * Lipid Profile 10/08/22 * Albumin/Creatinine Ratio, Random Urine 06/11/23 * Complete Metabolic Panel 10/08/22 Radiology* US Abdomen and Aorta 04/27/23 [facility] Evaluation + Plan note Future Appointments Appointment Date:08/18/2023 08:00:00 AM Scheduled Provider: Location:[facility] Appointment Type:DB Diabetic Individual Visit (AO) Appointment Date:10/22/2023 09:30:00 AM Scheduled Provider:KELLIE BENITES Location:[facility] Appointment Type:PC OV Future Scheduled Tests Laboratory* Basic Metabolic Panel 02/13/23 * Prostate Specific Antigen 02/13/23 * Prostate Specific Antigen 10/08/22 * Complete Blood Count 10/08/22 * Lipid Profile 10/08/22 * Albumin/Creatinine Ratio, Random Urine 06/11/23 * Complete Metabolic Panel 10/08/22 [facility] Evaluation + Plan note Future Appointments Appointment Date:12/30/2023 09:00:00 AM Scheduled Provider: Location:[facility] Appointment Type:MEDS - Diabetic Individual Visit Future Scheduled Tests Laboratory* Basic Metabolic Panel 02/13/23 * Prostate Specific Antigen 02/13/23 * Albumin/Creatinine Ratio, Random Urine 06/11/23 [facility] Evaluation + Plan note Future Appointments Appointment Date:01/28/2024 09:00:00 AM Scheduled Provider: Location:[facility] Appointment Type:Echo - Echocardiogram Adult Appointment Date:02/01/2024 09:15:00 AM Scheduled Provider:GAVINO AG Location:[facility] Appointment Type:CV OV Future Scheduled Tests Laboratory* Basic Metabolic Panel 01/11/24 * Basic Metabolic Panel 02/13/23 * Prostate Specific Antigen 02/13/23 * Albumin/Creatinine Ratio, Random Urine 06/11/23 * N-Terminal proBNP 01/11/24 [facility] Evaluation + Plan note Future Appointments Appointment Date:02/01/2024 09:15:00 AM Scheduled Provider:GAVINO AG Location:[facility] Appointment Type:CV OV Future Scheduled Tests Laboratory* Basic Metabolic Panel 01/11/24 * Basic Metabolic Panel 02/13/23 * Prostate Specific Antigen 02/13/23 * Albumin/Creatinine Ratio, Random Urine 06/11/23 * N-Terminal proBNP 01/11/24 [facility] Evaluation + Plan note Future Appointments Appointment Date:06/14/2024 09:30:00 AM Scheduled Provider:GAVINO AG Location:[facility] Appointment Type:CV OV Future Scheduled Tests Laboratory* Basic Metabolic Panel 01/11/24 * Albumin/Creatinine Ratio, Random Urine 06/11/23 * N-Terminal proBNP 01/11/24 [facility] Evaluation + Plan note Future Appointments Appointment Date:04/13/2024 11:00:00 AM Scheduled Provider:KELLIE BENITES Location:[facility] Appointment Type:PC OV Appointment Date:06/14/2024 09:30:00 AM Scheduled Provider:GAVNIO AG Location:[facility] Appointment Type:CV OV Diagnostic Tests Pending * Urine Culture 04/04/24 Future Scheduled Tests Laboratory* Basic Metabolic Panel 01/11/24 * Urinalysis w/ C&S if Indicated 04/04/24 * Albumin/Creatinine Ratio, Random Urine 04/05/24 * Albumin/Creatinine Ratio, Random Urine 06/11/23 * N-Terminal proBNP 01/11/24 [facility] Evaluation + Plan note Future Appointments Appointment Date:04/13/2024 11:00:00 AM Scheduled Provider:KELLIE BENITES Location:[facility] Appointment Type:PC OV Appointment Date:06/14/2024 09:30:00 AM Scheduled Provider:GAVINO AG Location:[facility] Appointment Type:CV OV Future Scheduled Tests Laboratory* Basic Metabolic Panel 01/11/24 * Urinalysis w/ C&S if Indicated 04/04/24 * Albumin/Creatinine Ratio, Random Urine 06/11/23 * N-Terminal proBNP 01/11/24 [facility] Evaluation + Plan note Future Appointments Appointment Date:12/27/2024 09:30:00 AM Scheduled Provider:GAVINO AG Location:[facility] Appointment Type:CV OV Future Scheduled Tests Laboratory* Basic Metabolic Panel 01/11/24 * Urinalysis w/ C&S if Indicated 04/04/24 * N-Terminal proBNP 01/11/24 [facility] evaluation note* Diagnosis Onset Date Resolution Status Impaired mobility and ADLs a [facility] Work Phone: evaluylaxk note* Diagnosis Difficulty urinating- Primary Other symptoms involving urinary system Benign prostatic hyperplasia with urinary retention [facility] Diagnosis Difficulty urinating- Primary Other symptoms involving urinary system [facility] Diagnosis BPH with obstruction/lower urinary tract symptoms- Primary Hypertrophy of prostate with urinary obstruction and other lower urinary tract symptoms (LUTS) Chronic retention of urine Other specified retention of urine [facility] Diagnosis Renal mass, left- Primary Unspecified disorder of kidney and ureter Adrenal nodule (HCC) Unspecified disorder of adrenal glands Benign prostatic hyperplasia with urinary retention Other specified disorders of kidney and ureter Renal mass, left Unspecified disorder of kidney and ureter Other specified disorders of kidney and ureter documented [facility] Author Allie Swann [facility] Note Date/Time January 05, 2025 2:53 pm [facility] Medical Records Department [address] [place] [address] H&P Exam - Hospitalist 01/05/25 1441 MR#: [id number] Acct: [id number] Name: JADON ALVAREZ Rep #:[id number] 1 : 1955 69 From: Allie Swann MD PCP: Kathleen Herzog MD Status:REG ER Location: ED HPI - General General Date of Admission: 01/05/25 Date of Service: 01/05/25 Chief Complaint: AMS HPI Narrative JADON ALVAREZ, is a 69-year-old male with history of bipolar disorder, COPD, PAWEL, diabetes, VTE, A-fib, BPH presented [facility] ED 01/05/2025with reported possible mental status change. [...] but was unable tofurther characterize that. [facility] Medical History Major depressive disorder, single [...] Sl. Cloudy, Urine pH 8.0, Ur Specific [place] 1.010, Urine Protein 100 H, Urine Glucose [...] Neut % (Auto) 54.3, Lymph % (Auto) 23.9,Canadian % (Auto) 16.1 H, Eos % (Auto) 5.1 H, Baso % (Auto) 0.6, Absolute Neuts (auto) 2.6, Absolute Lymphs (auto) 1.13, Nucleated RBC % 0, Sodium 139, Potassium 4.4, Chloride 102, Carbon Dioxide 25.0, Anion Gap 12, BUN 30 H, Creatinine 1.50 H, Est GFR (MDRD) Non-Af 50 L, BUN/Creatinine Ratio 19.9, [id number] H, Calcium 9.7 Imaging Radiology Impression Brain CT 01/05/25 08:51 IMPRESSION: CHRONIC CHANGES. NO ACUTE FINDINGS. Reading Location: [id number] Chest X-Ray 01/05/25 12:30 IMPRESSION: No acute abnormality is seen. Reading Location: [id number] Assessment & Plan Assessment/Plan (1) Altered mental [...] Swann MD Charges/Coding Visit Charges Inpatient E&M: 76116 Init Hosp L2 01/05/25 1525 <Electronically signed by Allie Swann MD> Cosigner Signature (if applicable): CC: Dr. 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 He has been prescribed ciprofloxacin. Besides that his workup was consistent with constipation. His lab work was normal including his white blood cell count, kidney function, CT of the brain. He was given an enema with no significant results. He needs aggressive oral therapy with his lactulose and magnesium for his constipation. If he worsens, develops fever or if you have further concerns please return to the emergency room.[facility] Work Phone: Progress note No data available for this section [facility] Reason for referral (narrative)No reason for referral [facility] Work Phone: Reason for visit Narrative* MRI/CT (Routine) - Closed Specialty Diagnoses / Procedures Referred By Matt t Referred To Contact CT IMAGING Diagnoses Renal mass, left Other specified disorders of kidney and ureter Procedures CT KIDNEY WO/W IVCON CT ABDOMEN W & W/O CONTRAST Shar Downs MD [address] [place] [address] Phone: tel: fax: [place] [address] Referral ID Status Reason Start Date Expiration Date V isits Requested Visits Authorized [id number] Closed Auto-Generate d Referral 07/12/2024 07/11/2025 1 1 [facility] note* ROMA Newberry L: PERFORM Event Display: Patient Summary Documents Authored Date: [id number] [facility] Archie Uribe: PERFORM Event Display: Patient Summary Documents Authored Date: [id number] [facility] Chief Complaint and Reason for Visit Chief [...] UTI AND VALENTIN Ju ne 2024 2:41pm Reason for Visit Admit Date [...] WITH UTI AND VALENTIN Ju ne 2024 10:50am Chief Complaint Admit Date SEPSIS [...] MENTAL STATUS CHANGE WITH UTI AND VALENTIN Alejandra monterroso 2024 2:41pm MENTAL STATUS CHANGE WITH UTI AND VALENTIN Alejandra monterroso 2024 10:50am wound January 24, 2025 8:55 [...] fat layer exposed January 24, 2025 8:55am Chief Complaint Admit Date wound November 29, 2024 9:36a m wound January 03, 2025 8:23 am MENTAL STATUS CHANGE WITH UTI AND VALENTIN Alejandra monterroso 2024 2:41pm MENTAL STATUS CHANGE WITH UTI AND VALENTIN Alejandra monterroso 2024 10:50am wound January 24, 2025 8:55 am wound March 07, 2025 9: 00am confusion, alt LOC March 11, 2025 10 :24pm Reason for Visit Admit Date Non-pressure chronic ulcer o f right calf [...] fat layer exposed January 24, 2025 8:55am 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 March 07, 2025 9:00am Chief Complaint Admit Date wound January 03, 2025 8:23 am MENTAL STATUS CHANGE WITH UTI AND VALENTIN Ju ne 2024 2:41pm MENTAL STATUS CHANGE WITH UTI AND VALENTIN Ju ne 2024 10:50am wound January 24, 2025 8:55 am wound March 07, 2025 9: 00am confusion, alt LOC March 11, 2025 10 :24pm wound April 04, 2025 10:30am Reason for Visit Admit Date 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 January 03, 2025 8:23am Acute kidney injury January 05, 2025 2:41 pm Altered mental status January 05, 2025 2: 41pm Urinary tract infection January 05, 2025 2:41pm 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 January 24, 2025 8:55am 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 March 07, 2025 9:00am 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 April 04, 2025 10:30am Advance Directives No Advanced Directives Records Found Advance Directive Response Recorded Date/ Time Living Will No October 28, 2023 1:12pm Power of Continuity Director No October 27 1:12pm Advance Directive Response Recorded Date/ Time Name of Medical Power of Continuity Director Jann Chase wally October 28, 2023 8:22pm Living Will Yes October 28, 2023 8:22pm Power of Continuity Director Yes October 27 8:22pm Advance Directive Response Recorded Date/ Time Living Will Yes April 11 12:35am Power of Continuity Director Yes October 1st, 2 024 12:35am Living Will No June 01 024 1:00pm Power of Continuity Director No June 01, 2024 1:00pm Living Will Yes June 11 1:42am Power of Continuity Director Yes June 11, 2024 1:42am Living Will Yes July 12 1:43am Power of Continuity Director Yes July 12 025 1:43am Living Will Yes August 12 3:17am Power of Continuity Director Yes August 12, 2024 3:17am Living Will Yes September 09, 2024 3:27am Power of Continuity Director Yes September 09 3:27am Living Will No September 16, 2024 9:10pm Power of Continuity Director No September 16 9:10pm Advance Directive Response Recorded Date/ Time Living Will Yes June 11 1:42am Do you have a Healthcare Power of Continuity Director? Yes June 11, 2024 1:42am Living Will Yes July 12 1:43am Do you have a Healthcare Power of Continuity Director? Yes July 12, 2024 1:43am Living Will Yes August 12 3:17am Do you have a Healthcare Power of Continuity Director? Yes August 12, 2024 3:17am Living Will Yes September 09, 2024 3:27am Do you have a Healthcare Power of Continuity Director? Yes September 09, 2024 3:27am Living Will No September 16, 2024 9:10pm Do you have a Healthcare Power of Continuity Director? No September 16, 2024 9:10pm Advance Directive Response Recorded Date/ Time Living Will Yes October 10, 2024 3:29pm Do you have a Healthcare Power of Continuity Director? Yes October 10, 2024 3:29pm Name of Medical Power of Continuity Director daughter October 10, 2024 3:29pm Living Will Yes June 11 1:42am Do you have a Healthcare Power of Continuity Director? Yes June 11, 2024 1:42am Living Will Yes July 12 1:43am Do you have a Healthcare Power of Continuity Director? Yes July 12, 2024 1:43am Living Will Yes August 12 3:17am Do you have a Healthcare Power of Continuity Director? Yes August 12, 2024 3:17am Living Will Yes September 09, 2024 3:27am Do you have a Healthcare Power of Continuity Director? Yes September 09, 2024 3:27am Living Will No September 16, 2024 9:10pm Do you have a Healthcare Power of Continuity Director? No September 16, 2024 9:10pm Advance Directive Response Recorded Date/ Time Living Will Yes October 10, 2024 9:20pm Do you have a Healthcare Power of Continuity Director? Yes October 10, 2024 9:20pm Name of Medical Power of Continuity Director daughter October 10, 2024 9:20pm Living Will Yes June 11 1:42am Do you have a Healthcare Power of Continuity Director? Yes June 11, 2024 1:42am Living Will Yes July 12 1:43am Do you have a Healthcare Power of Continuity Director? Yes July 12, 2024 1:43am Living Will Yes August 12 3:17am Do you have a Healthcare Power of Continuity Director? Yes August 12, 2024 3:17am Living Will Yes September 09, 2024 3:27am Do you have a Healthcare Power of Continuity Director? Yes September 09, 2024 3:27am Living Will No September 16, 2024 9:10pm Do you have a Healthcare Power of Continuity Director? No September 16, 2024 9:10pm Advance Directive Response Recorded Date/ Time Living Will Yes October 10, 2024 9:20pm Do you have a Healthcare Power of Continuity Director? Yes October 10, 2024 9:20pm Name of Medical Power of Continuity Director daughter October 10, 2024 9:20pm Living Will Yes June 11 1:42am Do you have a Healthcare Power of Continuity Director? Yes June 11, 2024 1:42am Living Will Yes July 12 1:43am Do you have a Healthcare Power of Continuity Director? Yes July 12, 2024 1:43am Living Will Yes August 12 3:17am Do you have a Healthcare Power of Continuity Director? Yes August 12, 2024 3:17am Living Will Yes September 09, 2024 3:27am Do you have a Healthcare Power of Continuity Director? Yes September 09, 2024 3:27am Living Will No September 16, 2024 9:10pm Do you have a Healthcare Power of Continuity Director? No September 16, 2024 9:10pm Living Will No October 13, 2024 11:52am Do you have a Healthcare Power of Continuity Director? No October 13, 2024 11:52am Advance Directive Response Recorded Date/ Time Living Will Yes October 10, 2024 9:20pm Do you have a Healthcare Power of Continuity Director? Yes October 10, 2024 9:20pm Name of Medical Power of Continuity Director daughter October 10, 2024 9:20pm Living Will Yes June 11 1:42am Do you have a Healthcare Power of Continuity Director? Yes June 11, 2024 1:42am Living Will Yes July 12 1:43am Do you have a Healthcare Power of Continuity Director? Yes July 12, 2024 1:43am Living Will Yes August 12 3:17am Do you have a Healthcare Power of Continuity Director? Yes August 12, 2024 3:17am Living Will Yes September 09, 2024 3:27am Do you have a Healthcare Power of Continuity Director? Yes September 09, 2024 3:27am Living Will No September 16, 2024 9:10pm Do you have a Healthcare Power of Continuity Director? No September 16, 2024 9:10pm Living Will No October 13, 2024 3:15pm Do you have a Healthcare Power of Continuity Director? No October 13, 2024 3:15pm Advance Directive Response Recorded Date/ Time Living Will Yes October 10, 2024 9:20pm Do you have a Healthcare Power of Continuity Director? Yes October 10, 2024 9:20pm Name of Medical Power of Continuity Director daughter October 10, 2024 9:20pm Living Will Yes November 09, 2024 12 :40am Do you have a Healthcare Power of Continuity Director? Yes November 09, 2024 12:40am Living Will Yes August 12 3:17am Do you have a Healthcare Power of Continuity Director? Yes August 12, 2024 3:17am Living Will Yes September 09, 2024 3:27am Do you have a Healthcare Power of Continuity Director? Yes September 09, 2024 3:27am Living Will No September 16, 2024 9:10pm Do you have a Healthcare Power of Continuity Director? No September 16, 2024 9:10pm Living Will Yes October 10, 2024 12:55am Do you have a Healthcare Power of Continuity Director? Yes October 10, 2024 12:55am Living Will No October 13, 2024 3:15pm Do you have a Healthcare Power of Continuity Director? No October 13, 2024 3:15pm Advance Directive Response Recorded Date/ Time Living Will Yes October 10, 2024 9:20pm Do you have a Healthcare Power of Continuity Director? Yes October 10, 2024 9:20pm Name of Medical Power of Continuity Director daughter October 10, 2024 9:20pm Living Will Yes November 09, 2024 12 :40am Do you have a Healthcare Power of Continuity Director? Yes November 09, 2024 12:40am Do you have a Healthcare Power of Continuity Director? Yes January 05, 2025 8:30am Living Will Yes September 09, 2024 3:27am Do you have a Healthcare Power of Continuity Director? Yes September 09, 2024 3:27am Living Will No September 16, 2024 9:10pm Do you have a Healthcare Power of Continuity Director? No September 16, 2024 9:10pm Living Will Yes October 10, 2024 12:55am Do you have a Healthcare Power of Continuity Director? Yes October 10, 2024 12:55am Living Will No October 13, 2024 3:15pm Do you have a Healthcare Power of Continuity Director? No October 13, 2024 3:15pm Living Will Yes December 10, 2024 1 2:19am Do you have a Healthcare Power of Continuity Director? Yes December 10, 2024 12:19am Advance Directive Response Recorded Date/ Time Living Will Yes October 10, 2024 9:20pm Do you have a Healthcare Power of Continuity Director? Yes October 10, 2024 9:20pm Name of Medical Power of Continuity Director daughter October 10, 2024 9:20pm Living Will Yes November 09, 2024 12 :40am Do you have a Healthcare Power of Continuity Director? Yes November 09, 2024 12:40am Do you have a Healthcare Power of Continuity Director? Yes January 05, 2025 4:33pm Living Will Yes September 09, 2024 3:27am Do you have a Healthcare Power of Continuity Director? Yes September 09, 2024 3:27am Living Will No September 16, 2024 9:10pm Do you have a Healthcare Power of Continuity Director? No September 16, 2024 9:10pm Living Will Yes October 10, 2024 12:55am Do you have a Healthcare Power of Continuity Director? Yes October 10, 2024 12:55am Living Will No October 13, 2024 3:15pm Do you have a Healthcare Power of Continuity Director? No October 13, 2024 3:15pm Living Will Yes December 10, 2024 1 2:19am Do you have a Healthcare Power of Continuity Director? Yes December 10, 2024 12:19am Advance Directive Response Recorded Date/ Time Living Will Yes October 10, 2024 9:20pm Do you have a Healthcare Power of Continuity Director? Yes October 10, 2024 9:20pm Name of Medical Power of Continuity Director daughter October 10, 2024 9:20pm Living Will Yes November 09, 2024 12 :40am Do you have a Healthcare Power of Continuity Director? Yes November 09, 2024 12:40am Do you have a Healthcare Power of Continuity Director? Yes January 05, 2025 4:33pm Living Will Yes October 10, 2024 12:55am Do you have a Healthcare Power of Continuity Director? Yes October 10, 2024 12:55am Living Will No October 13, 2024 3:15pm Do you have a Healthcare Power of Continuity Director? No October 13, 2024 3:15pm Living Will Yes December 10, 2024 1 2:19am Do you have a Healthcare Power of Continuity Director? Yes December 10, 2024 12:19am Advance Directive Response Recorded Date/ Time Living Will Yes November 09, 2024 12 :40am Do you have a Healthcare Power of Continuity Director? Yes November 09, 2024 12:40am Do you have a Healthcare Power of Continuity Director? Yes January 05, 2025 4:33pm Living Will Yes December 10, 2024 1 2:19am Do you have a Healthcare Power of Continuity Director? Yes December 10, 2024 12:19am Do you have a Healthcare Power of Continuity Director? Yes March 11, 2025 10:45pm Advance Directive Response Recorded Date/ Time Do you have a Healthcare Power of Continuity Director? Yes January 05, 2025 4:33pm Living Will Yes December 10, 2024 1 2:19am Do you have a Healthcare Power of Continuity Director? Yes December 10, 2024 12:19am Do you have a Healthcare Power of Continuity Director? Yes March 11, 2025 10:45pm Summary Purpose Family History Relationship Condition Age [...] or prosecute any alcohol or drug abuse patient.[facility] the event this information is protected by the Federal Confidentiality of Alcohol and Drug Abuse Patient Records regulations: The Federal rules restrict any use of the information to criminally investigate or prosecute any alcohol or drug abuse patient.[facility] the event this information is protected by the Federal Confidentiality of Alcohol and Drug Abuse Patient Records regulations: The Federal rules restrict any use of the information to criminally investigate or prosecute any alcohol or drug abuse patient.[facility] the event this information is protected by the Federal Confidentiality of Alcohol and Drug Abuse Patient Records regulations: The Federal rules restrict any use of the information to criminally investigate or prosecute any alcohol or drug abuse patient.[facility] the event this information is protected by the Federal Confidentiality of Alcohol and Drug Abuse Patient Records regulations: The Federal rules restrict any use of the information to criminally investigate or prosecute any alcohol or drug abuse patient.[facility] the event this information is protected by the Federal Confidentiality of Alcohol and Drug Abuse Patient Records regulations: The Federal rules restrict any use of the information to criminally investigate or prosecute any alcohol or drug abuse patient.[facility] the event this information is protected by the Federal Confidentiality of Alcohol and Drug Abuse Patient Records regulations: The Federal rules restrict any use of the information to criminally investigate or prosecute any alcohol or drug abuse patient.[facility] the event this information is protected by the Federal Confidentiality of Alcohol and Drug Abuse Patient Records regulations: The Federal rules restrict any use of the information to criminally investigate or prosecute any alcohol or drug abuse patient.[facility] the event this information is protected by the Federal Confidentiality of Alcohol and Drug Abuse Patient Records regulations: The Federal rules restrict any use of the information to criminally investigate or prosecute any alcohol or drug abuse patient.[facility] the event this information is protected by the Federal Confidentiality of Alcohol and Drug Abuse Patient Records regulations: The Federal rules restrict any use of the information to criminally investigate or prosecute any alcohol or drug abuse patient.[facility] the event this information is protected by the Federal Confidentiality of Alcohol and Drug Abuse Patient Records regulations: The Federal rules restrict any use of the information to criminally investigate or prosecute any alcohol or drug abuse patient.[facility] Care Team (unrecognized sect ion and content) Germination Worker Relationship Specialty Start Date End Date Poornima Medina, DO PCP - General Genetics 11/12/11 Team Status: Active Member Role Status Dates Dr. Poornima Medina , DO Family Provider Active Kellie Delmis ANCILLARY SERVICES MANAGER THERAPY, ANCILLARY SERVICES MANAGER THERAPY-C Primary Care Provider Active Team Status: Active Member Role Status Dates Kellie Benites ANCILLARY SERVICES MANAGER THERAPY, ANCILLARY SERVICES MANAGER THERAPY-C Primary Care Provider Active Dr. Shayna Martinez , DO Emergency Provider Active Dr. Sommer Xie MD Admit Provider, Attending Prov ider Active Team Status: Active Member Role Status Dates Kellie Benites ANCILLARY SERVICES MANAGER THERAPY, ANCILLARY SERVICES MANAGER THERAPY-C Primary Care Provider Active Dr. Shayna Martinez , Emergency Provider Active Dr. Sommer Xie MD Admit Provider, Other Provider Active Dr. Washington Ames , DO Attending Provider, Other Provider Active Team Status: Active Member Role Status Dates Kellie Benites ANCILLARY SERVICES MANAGER THERAPY, ANCILLARY SERVICES MANAGER THERAPY-C Primary Care Provider Active Dr. Shayna Martinez DO Emergency Provider Active Dr. Sommer Xie MD Admit Provider Active Dr. Louie Howard , DO Attending Provider, Other Pro vider Active Dr. Washington Ames , DO Other Provider Active Team Status: Active Member Role Status Dates Kellie Benites ANCILLARY SERVICES MANAGER THERAPY, ANCILLARY SERVICES MANAGER THERAPY-C Primary Care Provider Active Dr. Shayna Martinez DO Emergency Provider Active Dr. Sommer Xie MD Admit Provider Active Dr. Louie Howard , DO Other Provider Active Dr. Washington Ames , DO Other Provider Active Dr. Regan Kelly , DO Attending Provider Active Team Status: Active Member Role Status Dates Kellie Benites ANCILLARY SERVICES MANAGER THERAPY, ANCILLARY SERVICES MANAGER THERAPY-C Primary Care Provider Active Dr. Regan Kelly , DO Attending Provider Active Team Status: Inactive Member Role Status Dates Kellie Benites ANCILLARY SERVICES MANAGER THERAPY, ANCILLARY SERVICES MANAGER THERAPY-C Primary Care Provider Active Dr. Shayna Martinez DO Emergency Provider Active Dr. Sommer Xie MD Admit Provider Active Dr. Louie Howard , DO Attending Provider, Other Pro vider Active Dr. Washington Ames , DO Other Provider Active Germination Worker Relationship Specialty Start Date End Date Ignacia Reyna DO [address] [place] [address] PCP - General Family Medicine 01/12/24 Germination Worker Relationship Specialty Start Date End Date Ignacia Reyna DO [address] [place] [address] PCP - General Family Medicine 01/12/24 Germination Worker Relationship Specialty Start Date End Date Ignacia Reyna DO [address] [place] [id number] PCP - General Family Medicine 01/12/24 Germination Worker Relationship Specialty Start Date End Date Ignacia Reyna DO [address] [place] [id number] PCP - General Family Medicine 01/12/24 Germination Worker Relationship Specialty Start Date End Date Ignacia Reyna DO [address] [place] [id number] PCP - General Family Medicine 01/12/24 Germination Worker Relationship Specialty Start Date End Date Ignacia Reyna DO [address] [place] [id number] PCP - General Family Medicine 01/12/24 Team [...] Provider Active S tart: October 18, 2024 Germination Worker Relationship Specialty Start Date End Date Ignacia Reyna DO [address] [facility] [place] [address] PCP - General Family Medicine 01/12/24 Shar Downs MD [address] [place] [address] Urology 10/31/24 Team Status: Active Member Role [...] St art: October 16, 2024 Dr. Monika Garcais MD Other Provider Active St art: October [...] Start: January 05, 2025 Dr. Vivek Villatoro DO Emergency Provider [...] End: January 08, 2025 Dr. Ignacia Reyna , Other Provider Active Sta rt: January 03, [...] 2024 End: October 12, 2024 Dr. Dl eNely MD Attending Provider Active Start: October 10, [...] Active Member Role/Relationship Status Dates Dr. Kathleen Hrezog MD Primary Care Provider Active Start: October [...] End: February 08, 2025 Dr. Ignacia Reyna DO Other Provider Active Sta rt: January 24, 2025 End: February 08, 2025 Dr. Aaron Shannon DPM Attending Provider Active Start: January 24, 2025 End: February 08, 2025 Dr. Kathleen Herzog MD Primary Care Provider Active Start: January 24, 2025 End: February 08, 2025 Team Status: Inactive Member Role/Relationship [...] End: February 08, 2025 Dr. Ignacia Reyna DO Other Provider Active Sta rt: January 24, 2025 End: February 08, 2025 Dr. Aaron Shannon DPM Attending Provider Active Start: January 24, 2025 End: February 08, 2025 Dr. Kathleen Herzog MD Primary Care Provider Active Start: January 24, 2025 End: February 08, 2025 Team Status: Inactive Member Role/Relationship Status Dates Dr. Moshe Kitchen MD Referring Provider Active Start: March 07, 2025 End: March 11, 2025 Dr. Ignacia Reyna DO Other Provider Active Sta rt: March 07, 2025 End: March 11, 2025 Dr. Aaron Shannon DPM Attending Provider Active Start: March 07, 2025 End: March 11, 2025 Dr. Kathleen Herzog MD Primary Care Provider Active Start: March 07, 2025 End: March 11, 2025 Team Status: Active Member Role/Relationship Status Dates Dr. Kathleen Herzog MD Primary Care Provider Active Start: March 11, 2025 Dr. Malinda Ho DO Emergency Provider Active Start: March 11, 2025 Team Status: Inactive Member Role/Relationship Status Dates Dr. Ktahleen Herzog MD Primary Care Provider Active Start: March 11, 2025 End: March 12, 2025 Dr. Malinda Ho DO Emergency Provider Active Start: March 11, 2025 End: March 12, 2025 Team Status: Active Member Role/Relationship Status Dates Dr. Kathleen Herzog MD Primary care physician Active Team Status: Inactive Member Role/Relationship Status Dates Dr. Moshe Kitchen MD Referring Provider Active Start: January 03, 2025 End: January 08, 2025 Dr. Ignacia Reyna DO Nurse Practitioner Active Start: January 03, 2025 End: January 08, 2025 Dr. Aaron Shannon DPM Attending physician Active Start: January 03, 2025 End: January 08, 2025 Dr. Kathleen Herzog MD Primary care physician Active Start: January 03, 2025 End: January 08, 2025 Team Status: Inactive Member Role/Relationship Status Dates Dr. Kathleen Herzog MD Primary care physician Active Start: January 05, 2025 End: January 06, 2025 Dr. Vivek Villatoro DO Emergency Department Physician Active Start: January 05, 2025 End: January 06, 2025 Dr. Allie Swann MD Admitting physician Active Start: January 05, 2025 End: January 06, 2025 Dr. Allie Swann MD Referring Provider Active Start: January 05, 2025 End: January 06, 2025 Dr. Allie Swann MD Nurse Practitioner Active Start: January 05, 2025 End: January 06, 2025 Dr. Louie Howard DO Attending physician Active Start: January 05, 2025 End: January 06, 2025 Team Status: Active Member Role/Relationship Status Dates Dr. Kathleen Herzog MD Primary care physician Active Start: January 06, 2025 Dr. Vivek Villatoro DO Emergency Department Physician Active Start: January 06, 2025 Dr. Allie Swann MD Admitting physician Active Start: January 06, 2025 Dr. Allie Swann MD Nurse Practitioner Active Start: January 06, 2025 Dr. Louie Howard DO Attending physician Active Start: January 06, 2025 Dr. Louie Howard DO Nurse Practitioner Active Start: January 06, 2025 Team Status: Inactive Member Role/Relationship Status Dates Dr. Moshe Kitchen MD Referring Provider Active Start: January 24, 2025 End: February 08, 2025 Dr. Ignacia Reyna DO Nurse Practitioner Active Start: January 24, 2025 End: February 08, 2025 Dr. Aaron Shannon DPM Attending physician Active Start: January 24, 2025 End: February 08, 2025 Dr. Kathleen Herzog MD Primary care physician Active Start: January 24, 2025 End: February 08, 2025 Team Status: Inactive Member Role/Relationship Status Dates Dr. Moshe Kitchen MD Referring Provider Active Start: March 07, 2025 End: March 11, 2025 Dr. Ignacia Reyna DO Nurse Practitioner Active Start: March 07, 2025 End: March 11, 2025 Dr. Aaron Shannon DPM Attending physician Active Start: March 07, 2025 End: March 11, 2025 Dr. Kathleen Herzog MD Primary care physician Active Start: March 07, 2025 End: March 11, 2025 Team Status: Inactive Member Role/Relationship Status Dates Dr. Kathleen Herzog MD Primary care physician Active Start: March 11, 2025 End: March 12, 2025 Dr. Malinda Ho DO Attending physician Active Start: March 11, 2025 End: March 12, 2025 Dr. Malinda Ho DO Emergency Departm ent Physician Active Start: March 11, 2025 End: March 12, 2025 Team Status: Inactive Member Role/Relationship Status Dates Dr. Moshe Kitchen MD Referring Provider Active Start: April 04, 2025 End: April 10, 2025 Dr. Ignacia Reyna DO Nurse Practitioner Active Start: April 04, 2025 End: April 10, 2025 Dr. Aaron Shannon DPM Attending physician Active Start: April 04, 2025 End: April 10, 2025 Dr. Kathleen Herzog MD Primary care physician Active Start: April 04, 2025 End: April 10, 2025 Care Team (unrecognized sect ion and content) Care Team Personnel Name: YADIEL TORRES Position: P4 Advanced Practice Nurse Member Role: Primary Care Physician Address: Address: [address] [place] [address]- Care Team Related Persons Name: CASA ALVAREZ Address: Home [address] [place] [phone] [place] Name: ROMINA ALVAREZ Care Team Personnel Name: YADIEL TORRES Position: P4 Advanced Practice Nurse Med Service: Active Provider Member Role: Primary Care Physician Address: Address: [address] [place] [address]- Care Team Related Persons Name: CASA ALVAREZ Address: Home [address] [place] [phone] [place] Name: ROMINA ALVAREZ Care Team Personnel Name: YADIEL TORRES Position: P4 Advanced Practice Nurse Member Role: Primary Care Physician Address: Address: [address] [place] [address]- [place] Care Team Related Persons Name: CASA ALVAREZ Address: Home [address] [place] [phone] [place] Name: ROMINA ALVAREZ Care Team Personnel Name: YADIEL TORRES Position: P4 Advanced Practice Nurse Member Role: Primary Care Physician Address: Address: [address] [place], [place] [address]- [place] Care Team Related Persons Name: CASA ALVAREZ Address: Home [address] [place], [place] [phone] [place] Name: ROMINA ALVAREZ Reason for Visit (unrecogniz ed section and content) Reason Comments New Patient Reason Comments Difficulty Urinating Reason Comments Appointment Reason Comments Cystoscopy-1 Has martines catheter Reason Onset Date Comments Refill Request 09/20/2024 Goals (unrecognized section and content) Type Treatment Intervention Code Status: Full Code - Unverified Treatment Intervention Code Status: DNRC C-A, No IntubationComment: Per documentation Goals may be documented in an alternate section (unrecognized sect ion and content) No Status Records FoundNo Status Records FoundNo Status Records FoundNo Status Records FoundNo Status Records FoundNo Status Records Found INFORMATION SOURCE (unrecogn ized section and content) DATE CREATED AUTHOR [facility] DATE CREATED AUTHOR AUTHOR'S ORGANIZ ATION 04/22/2024 [facility] DATE CREATED AUTHOR AUTHOR'S ORGANIZ ATION 10/28/2024 [facility] DATE CREATED AUTHOR AUTHOR'S ORGANIZ ATION 01/02/2025 [facility] DATE CREATED AUTHOR AUTHOR'S ORGANIZ ATION 01/21/2025 [facility] DATE CREATED AUTHOR AUTHOR'S ORGANIZ ATION 04/27/2025 [facility] FOR RECORDS PERTAINING TO PATIENTS WHO [...] BE BASED ON THE PRIMARY CLINICAL RECORDS. [employer] [facility]. provides no warranty or guarantee of the accuracy or completeness of information in this document.
[2025-04-27 17:43] LABS: Alcohol, Blood (Medical)-Serum < 10.1 mg/dL (<=10.0)
--- NOTE | 2025-04-27 18:12 | CM.ED ---
Social Work Psychiatric Assessment Reason for consult: Mental Health Informant(s): ?Staff at [facility] Chief Complaint: ?Patient was brought to ED by EMS due to making suicidal statements with intent and plan.? Patient refused to speak to physician or this SW, so information gathered was by [facility] nursing staff and medical record.? Staff report that patient stated that he wants to , that he does not want to be on earth anymore, that he will either walk into traffic or stop eating and go into hypoglycemic shock.? According to staff, patient actively attempted to leave facility to walk into traffic and had to be stopped each time.? Staff report that patient stopped ?doing things? today, that he has not eaten since yesterday, that he refused medications, and refused participation in ADLs.? Staff report this is abnormal for patient.? Staff also report that patient was to start a new insomnia medication today as he also has not been sleeping.?Patient was seen by educational psychology teacher today who pink slipped patient due to patient representing a substantial risk of harm to self. Staff deny any auditory or visual hallucinations and deny any homicidal ideations.?? Marital/Social History: Patient is ?a 70 year old male, patient is , has one adopted son Living Situation: ?Patient has been living in [facility] for over one year. Support/Resources: ?patients son History: None Education and Employment History: ?unknown Mental Health Treatment/History: Triggers/Stressors to mental health: ?staff were unable to identify any recent triggers other than not being able to sleep Coping Skills: ?none History of Abuse (physical/sexual/verbal/emotional): unknown Substance Abuse Current/Historical: ?unknown Risk to Self/Others: ? Suicidal (thought/plan/intent/attempt): ?patient told [facility] staff that he wants to , plans to walk into traffic or not eat and become hypoglycemic ? Access to Lethal Means: ?yes ? Homicidal (thought/plan/intent/attempt): ?none ? History of Violence (self/others/objects): ?none Mental Status Exam: ??? Orientation: ?staff at [facility] state patient is alert and oriented x 3 ??? Memory: ?intact Appearance/General Behavior: ?patient has pulled blanket over his head and refused to speak to SW Mood/Affect: ?depressed, flat, blunted Communication Pattern: ?refuses to speak Thought Process: ?unknown General Intellectual Functioning: average Judgment: ?fair Insight: ?fair Plan: Inpatient psychiatric hospitalization is recommended due to patients active suicide ideations with intent and attempts to carry out plan. Physician consulted and in agreement with same. Bethany Ortiz, HOME SECURITY PROFESSIONAL, PRINTING MECHANIST
[2025-04-27 18:43] VITALS: BP 152/78; PULSE 55; RESP 18; O2SAT 96
[2025-04-27 18:45] LABS: Mucous, Urine 0 SEEN /hpf (<or=2+)
--- NOTE | 2025-04-27 19:13 | CM.ED ---
Social Work Patient was referred and accepted to [facility]. Accepting physician is Dr. Mc, patient will be going to [address]. [id number] [phone]. [employer] slip sent. Bethany Ortiz, FISHING ROD MECHANIC, AUTOMOTIVE TIRE TESTER
[2025-04-27 19:24] LABS: Color, Urine Straw (Yellow); Glucose, Dipstick Normal (Normal); Ketone-Dipstick 15 mg/dl (Negative); Leukocyte Esterase-Dipstick 500 /ul (Negative); Nitrite-Dipstick Positive (Negative); Occult Blood-Urine 10 /ul (Negative); Protein-Dipstick 15 mg/dl (Negative); Specific Gravity, Urine 1.010 (1.002-1.030); Urine Bilirubin Dipstick Negative (Negative)
[2025-04-27 19:35] LABS: Barbiturate Urine NEGATIVE (< 200 ng/mL); Benzodiazepine Urine NEGATIVE (< 200 ng/mL); PCP Urine NEGATIVE (< 25 ng/mL); THC Urine NEGATIVE (< 50 ng/mL)
[2025-04-27 20:57] LABS: Red Blood Cells-Urine 0-5 SEEN /hpf (0-5); Squamous Epithelial Cells - UA 0-5 SEEN /hpf (0-5)
[2025-04-27] MEDS: Smz/Tmp Ds Tablet 1 TABLET PO (21:34)
--- NOTE | 2025-04-27 21:43 | ED.RN ---
This RN attempted to call report to [facility] three times. Facility did not answer the phone during any call.
[2025-04-27 23:29] VITALS: BP 125/70; PULSE 57; RESP 16; TEMP 36.5; O2SAT 96
--- NOTE | 2025-04-27 23:30 | ED.RN ---
Nurse to nurse given to Nikita at [facility]
--- NOTE | 2025-04-28 03:01 | PCA ---
CALLED PHYS FOR A RIDE AND THEY OUTSOURCED IT TO JEANNE, THEY WILL BE HERE @ 345 TO DROSOPHERE OPERATOR THE PATIENT FOR [facility]
== END 2025-04-28 04:01 ==
PROVIDERS: Emergency Provider Emergency Medicine; PCP Internal Medicine; Visit Provider Emergency Medicine
DX: R45.851 Suicidal ideations (principal); N18.4 Chronic kidney disease, stage 4 (severe); J44.9 Chronic obstructive pulmonary disease, unspecified; I48.91 Unspecified atrial fibrillation; E11.22 Type 2 diabetes mellitus with diabetic chronic kidney disease; E11.51 Type 2 diabetes mellitus with diabetic peripheral angiopathy without gangrene; Z79.4 Long term (current) use of insulin; R82.71 Bacteriuria; R00.1 Bradycardia, unspecified; E66.9 Obesity, unspecified; I12.9 Hypertensive chronic kidney disease with stage 1 through stage 4 chronic kidney disease, or unspecified chronic kidney disease; F32.9 Major depressive disorder, single episode, unspecified; F41.9 Anxiety disorder, unspecified; I25.2 Old myocardial infarction; I35.0 Nonrheumatic aortic (valve) stenosis; I87.2 Venous insufficiency (chronic) (peripheral); D64.9 Anemia, unspecified; N40.0 Benign prostatic hyperplasia without lower urinary tract symptoms; G47.30 Sleep apnea, unspecified; Z95.2 Presence of prosthetic heart valve; Z91.51 Personal history of suicidal behavior; Z79.01 Long term (current) use of anticoagulants; Z79.82 Long term (current) use of aspirin; Z86.711 Personal history of pulmonary embolism; Z86.718 Personal history of other venous thrombosis and embolism; Z79.899 Other long term (current) drug therapy; Z87.891 Personal history of nicotine dependence
CPT/HCPCS: 80053; 80307; 81001; 82077; 82962; 85025; 87077; 87086; 87088; 87186; 99285; P9612